=== PATIENT | female | born 1960 | race Caucasian/White ===

== ENCOUNTER 2018-06-13 07:00 | Day surgery (SDC) | payer MEDICAID, SELFPAY ==
[2018-06-13 07:27] VITALS: BP 138/93; PULSE 87; RESP 16; TEMP 37.1; O2SAT 98; BMI 16.9
--- NOTE | 2018-06-13 07:33 | H&P.OPEN ---
History of Present Illness Date of Admission: 06/13/18 The patient is a 58 year old F presents for screening colonoscopy. Patient previously had a colonoscopy in December 2016 she had a rectal tubular adenoma removed piecemeal recommended follow-up in 6 months to a year. Patient states she has had no new abdominal pain, nausea, vomiting, reflux. Patient was recently diagnosed with epilepsy. Patient still denies family history of colon cancer. Past Medical/Surgical History - Planned Operation Planned Operative Procedure/s: cscope open access Date of Operative Procedure: 06/13/18 Permit Signed: No S.O.S: No Is This Patient Having a Total Joint: No - Previous Hospitalizations/Surgeries HX Hospitalizations: No HX of Surgeries: colonoscopy Any Problems With Anesthesia: No You/Your Family Experience Fever (Hyperthermia) With Anes: No Cholinesterase deficiency: No - Cardiovascular Hx Chest Pain within Last 2 months: No Hx of Irregular Heartbeat and/or Afib: No Hx Heart Attack: No Hx Congestive Heart Failure: No Hx Rheumatic Fever: No Hx Hypertension: No Hx Internal Defibrillator: No Hx Pacemaker: No Hx Cardiac Catheterization: No Hx Cardiac Surgery/Stents/Etc.: No Hx Stress Test: No HX Edema: No Hx Pain in Legs when Walking/Leg Cramps: No - Respiratory Chronic Cough: No HX of Shortness of Breath: No Hoarseness: No Hx Chronic Obstructive Pulmonary Disease (COPD): No Hx Asthma: No Hx Emphysema: No Hx Sleep Apnea: No CPAP: No Hx Oxygen Use at Home: No Hx Respiratory Tract Infection/Cold (presently): No Do You Snore Loudly (louder than talking or can be heard): No Do You Often Feel Tired/ Fatigued/ Sleepy Dring Daytime?: No Has Anyone Observed You Stop Breathing During Sleep?: No Result (for STOP score): Negative Hx Smoking: Yes - quit 1995 Smoking Status: Former smoker - Gastrointestinal Hx Gastroesophageal Reflux: No Hx Gastrointestinal Disorders: Yes - IBS Hx Gastrointestinal Bleed: No Hx Ulcer: No Hx Hiatal Hernia: No Difficulty Chewing/Swallowing: No Recent Onset of Swallowing Problems: No Special diet followed at home: No Hx Unplanned Weight Loss of 20#: No HX Unplanned Weight Gain of 20#: No - Neurological Hx Seizures: Yes - first seizure 5 yrs ago/last seizure 06/01/18. on med HX Syncope/Blackout Spells/Unconsciousness: No Hx CVA/Stroke: No Hx Transient Ischemic Attacks (TIA): No Hx Multiple Sclerosis: No Hx Parkinson's Disease: No Hx Head/Neck Injury: No Hx Headaches: No Hx Back Injury/Pain: No Recent Onset of Speech Difficulty: No Restless Legs: Yes - . Does patient have nerve stimulator: No Patient instructed to have device shut off: No Rep notified?: No - Blood Disorder Hx Leukemia: No Bleeding Tendencies: No Hx Deep Vein Thrombosis: No Hx High Cholesterol: No Blood Transmitted Disease: No Hx Hepatitis: No Hx Cirrhosis: No Hx Anemia: Yes Hx Blood Disorders: No - Reproduction : No Is Patient Lactating: No Hx Hysterectomy: No Hx Tubal Ligation: No Are You Post Menopause: Yes - Genitourinary Hx Renal Disease: No - Musculoskeletal Hx Arthritis: No Hx Rheumatoid Arthritis: No Hx Gout: No Recent Onset of an Orthopedic Problem: No - Endocrine Hx Diabetes: No Thyroid Disease: No Hx Steroid Therapy: No - Psycho/Social Hx Substance Use: No Hx Alcohol Use: Yes - occ Hx Anxiety: Yes - OCC. Hx Depression: Yes - occ Mental Illness: No Hx Dementia: No - Miscellaneous Hx Cancer: No Recent Exposure to Contagious Disease: No Active MRSA: No Hx of C-Diff: No Any Loose Teeth: No Allergies erythromycin base Allergy (Verified 06/11/18 10:30) TONGUE PEELS - Discharge Is Pt Admitted From a Residential, or a Nursing Home: No Who Could Help: family After D/C, Where Do you Plan to Go: Return Home - Physical Exam General: Alert, Oriented x3, Cooperative, No apparent distress HEENT: Atraumatic Lungs: Normal air movement Cardiovascular: Regular rate Abdomen: Soft, Non Tender, Non-Distended Extremities: No clubbing, No cyanosis, No edema Neurological: Cranial nerves II-XII grossly intact Psych/Mental Status: Normal Affect Assessment/Plan 58-year-old female for history of colon polyps Surgery Risks - Colonoscopy I discussed with the patient the risks of the procedure: Yes Risks Include but are not Limited To: Risks include but are not limited to: Bleeding, perforation requiring further surgery, inability to complete colonoscopy requiring barium enema. Patient expressed understanding had no further questions this time.
[2018-06-13 08:30] VITALS: BP 118/85; BP 138/93; PULSE 84; RESP 18; TEMP 37.3; O2SAT 98
[2018-06-13 08:35] VITALS: BP 124/82; BP 138/93; PULSE 78; RESP 17; O2SAT 98
--- NOTE | 2018-06-13 08:35 | OP.ENDO_ITS ---
06/13/2018 [facility] Re : Colonoscopy procedure for Lakesha Barbosa [facility] This procedure was performed on Wednesday, June 13, 2018. My impressions and recommendations are as follows: Impressions : - The entire examined colon is normal on direct and retroflexion views. Previous rectal polyp site-normal. - No specimens collected. Recommendations : - Discharge patient to home. - Resume previous diet. - Continue present medications. - Repeat colonoscopy for screening purposes and for surveillance. My findings are described in the full procedure note, which is enclosed. If I can be of further assistance, please feel free to contact me at Doctor phone number(s): , Work: . Sincerely, MD Cecily Altamirano MD 06/13/2018 8:34:43 AM This report has been signed electronically.
[2018-06-13 08:40] VITALS: BP 124/81; BP 138/93; PULSE 78; RESP 17; O2SAT 99
[2018-06-13 08:45] VITALS: BP 123/77; BP 138/93; PULSE 76; RESP 17; TEMP 36.8; O2SAT 99
[2018-06-13 08:58] VITALS: BP 138/93
== END 2018-06-13 09:09 | disposition home or self-care (01) ==
LOC: EN 07:00 → AC 07:03
PROVIDERS: Referring Provider Surgery; Visit Provider Surgery
PROC: 0DJD8ZZ Inspection of Lower Intestinal Tract, Via Natural or Artificial Opening Endoscopic (ICD-10-PCS; CPT 45378; principal; 2018-06-13 07:55)
DX: Z12.11 Encounter for screening for malignant neoplasm of colon (principal); Z86.010 Personal history of colon polyps; G40.909 Epilepsy, unspecified, not intractable, without status epilepticus; Z87.891 Personal history of nicotine dependence
CPT/HCPCS: 45378; J7120; J2405

== ENCOUNTER → 2018-12-26 11:42 | Outpatient (CLI) | payer MEDICAID, SELFPAY ==
--- NOTE | 2018-12-26 11:44 | BI_ITS ---
MAMMOGRAPHY - BILATERAL SCREENING REASON FOR EXAM: Female, 58 years old. Routine annual screening examination. PERTINENT HISTORY: Grandmother with breast cancer. TECHNIQUE: Digital bilateral breast josé (3D mammographic acquisition) in the CC and MLO projections. 2-D mediolateral oblique (MLO) and craniocaudad (CC) views of both breasts were obtained. CAD: Full Field Digital Mammography with Computer Added Detection was performed. COMPARISON: Comparison is made with prior study dated October 26, 2016. FINDINGS: Breast Composition: The breasts are extremely dense, which lowers the sensitivity of mammography. There are no dominant masses or suspicious calcifications. Macrocalcifications are seen in the upper central aspect of the left breast. No other significant abnormalities are identified. There has been no significant change since the prior study. BI/SCREEN MAMM (CAD) W/JOSÉ BILAT IMPRESSION: Stable bilateral screening mammogram. Yearly follow-up mammogram recommended. (A) ASSESSMENT CATEGORY: BIRADS Category 2: Benign. A letter regarding these results will be sent to the patient by the facility within 30 days. Approximately 10% of breast cancers are not detected by mammography. A normal mammogram should not delay biopsy of a clinically suspicious abnormality. [id number] Electronically Signed: Nael Thomas, at 12:55 EDT , Service support ,
== END ==
DX: Z12.31 Encounter for screening mammogram for malignant neoplasm of breast (principal)
CPT/HCPCS: 77063; 77067

== ENCOUNTER 2019-10-10 11:21 | Emergency (ER) | payer MEDICAID, SELFPAY ==
[2019-10-10 11:22] VITALS: BP 105/74; PULSE 105; RESP 18; TEMP 36.6; O2SAT 98; BMI 17.1
--- NOTE | 2019-10-10 11:34 | RAD_ITS ---
STUDY: X-RAY - LEFT SHOULDER REASON FOR EXAM: Female, 59 years old. PT FELL LAST NIGHT, DEFORMITY TECHNIQUE: 3 view(s) of the shoulder. COMPARISON: None. FINDINGS: Normal glenohumeral articulation. Normal acromioclavicular joint. Normal acromion. There is a comminuted impacted fracture of the surgical neck of the humerus with extension to the greater tuberosity. Soft tissue swelling. Normal visualized pulmonary apex. RAD/Shoulder min 2 Views IMPRESSION: Comminuted impacted fracture involving the surgical neck of the humerus with extension to the greater tuberosity. Electronically Signed: Nael Thomas, at 12:20 EDT , Service support ,
[2019-10-10] MEDS: Ondansetron ODT 4 MG Tablet PO (11:58)
[2019-10-10] MEDS: fentaNYL 100 MCG/2 ML Ampul 50 MCG IM (11:58)
--- NOTE | 2019-10-10 12:15 | ED.VISSUMM ---
- ER Visit Summary Date of Service: 10/10/19 Chief Complaint: Fall History of Present Illness: The patient is a 59 F who goes to the [facility]. Reports that last night she tripped over her dog injuring her left shoulder. She has pain is 10 of 10 severity. Is worsened by movement relieved by rest. She denies any paresthesias distally. Patient denies any other injuries. No blow to the head or loss of consciousness. She not on anticoagulants. She denies any neck, back, wrist, or hip pain. Review of systems: General: No fever, chills, cold sweats. Cardiovascular: No chest pain, palpitations. Respiratory: No cough, shortness of breath, dyspnea on exertion. Gastrointestinal: No abdominal pain, nausea, vomiting, diarrhea, melena, or hematochezia. Genitourinary: No dysuria, frequency, hematuria. Skin: No rash. Neuro: No headache, numbness, weakness. Physical Examination: Vitals: Stable. Afebrile. Neck: No vertebral tenderness. Full ROM without difficulty. Cleared by NEXUS criteria. Back: No vertebral tenderness. General: A&O x 3. NAD. Cardiovascular exam: Regular rate and rhythm, no murmur, rub or gallop. Respiratory exam: Chest nontender. No crepitus. Clear to auscultation bilaterally. No wheezes or stridor. Abdominal exam: Soft, nontender, nondistended, normal bowel sounds. No pain in RUQ or LUQ specifically. No peritoneal signs. Extremity: Obvious deformity of the proximal humerus on the left. It is severely tender to palpation. She is neuro vas intact distal this Test Results: Left shoulder x-ray shows a proximal humerus fracture. Emergency Department Course and Treatment: Patient was given fentanyl IM and placed in a sling. She was given Zofran and oxycodone p.o. Treatment Plan: Patient be discharged with Percocet, Zofran, and Colace. Instructed to follow-up with Dr. Mitchell in a week for another exam. Return to the emergency department for any worsening symptoms. Disposition: To home in improved and stable condition. Impression: 1. Fall. 2. Left proximal humerus fracture. This note was generated with [employer] dictation software. It may contain incorrect words, spelling, and punctuation that were not noted in review of the chart prior to signing ED Disposition - Plan for ED Patient: Instructions: ED Fracture Upper Extremity Prescriptions: Docusate Sodium [Colace] 100 mg PO DAILY #20 capsule Oxycodone HCl/Acetaminophen [Percocet 5/325] 1 tablet PO Q6H PRN PRN 5 Days #20 tablet PRN Reason: Pain Score 6-10/10 Ondansetron [Zofran Odt] 4 mg PO Q8H PRN PRN #10 tablet PRN Reason: Nausea Referrals: Tyler Mitchell MD [STAFF PHYSICIAN] - 1 Week
[2019-10-10] MEDS: oxyCODONE 5 MG Tablet 10 MG PO (12:36)
[2019-10-10 12:46] VITALS: BP 156/76; PULSE 91; RESP 19; O2SAT 97
== END 2019-10-10 12:48 | disposition home or self-care (01) ==
LOC: ED 12:29
PROVIDERS: Emergency Provider Emergency Medicine
DX: S42.202A Unspecified fracture of upper end of left humerus, initial encounter for closed fracture (principal); W01.0XXA Fall on same level from slipping, tripping and stumbling without subsequent striking against object, initial encounter; Y93.9 Activity, unspecified; Y92.9 Unspecified place or not applicable; Y99.9 Unspecified external cause status
CPT/HCPCS: 73030; 96372; 99283

== ENCOUNTER → 2019-11-01 11:46 | Outpatient (CLI) | payer MEDICAID, SELFPAY ==
[2019-10-10 11:22] VITALS: BMI 17.1
== END ==
DX: E87.6 Hypokalemia (principal)

== ENCOUNTER 2019-11-06 07:26 | Inpatient (IN) | payer MEDICAID, SELFPAY ==
--- NOTE | 2019-10-22 14:47 | PCM.HP.BLA ---
History and Physical History and Physical Patient Name: Lakesha Saravia : 1960 From: AMANDA NEGRETE NP DATE OF SURGERY: 10/30/2019 SCHEDULED PROCEDURE: Left reverse total shoulder arthroplasty HISTORY OF PRESENT ILLNESS: Preoperative history and physical exam was performed on October 14, 2019. This is a 59-year-old female who tripped over her dog and fell onto the left shoulder on October 10, 2019. Her pain is 10 on a scale of 10. She denies numbness and tingling. The patient is currently immobilized in a sling and swath. The patient lives independently and is employed. She is unable to work due to the left shoulder injury/fracture. The patient has a medical history pertinent for anxiety, depression and seizure disorder. We will be obtaining surgical clearance from Naomi Maya NP. She denies fevers, chills, shortness of breath, difficulty breathing or recent infections. After discussing treatment options with Dr. Tyler Mitchell the patient does wish to proceed with a left reverse total shoulder arthroplasty. REVIEW OF SYSTEMS: ROS: Const: Denies change in appetite, fever and weight change. CV: Denies chest pain, heart murmur and irregular heartbeat. Resp: Denies cough, pneumonia, shortness of breath, tuberculosis and wheezing. GI: Denies constipation, diarrhea, heartburn, nausea, rectal itching, bloody stools and vomiting. : Denies incontinence. Musculo: Denies leg swelling, pain, trouble walking and weakness. Skin: Denies Raynaud's, history of shingles and tattoo. Neuro: Denies ambulatory dysfunction, dizziness, numbness/tingling and tremor. Psych: Reports anxiety, but denies insomnia and stress. Lito/Lymph: Denies anemia, bleeding/bruising tendency and past transfusion. Reviewed, no changes. PAST MEDICAL HISTORY: Advance Care Plan: No Advance Directives Effective Date: 10/15/2019 PMH: Medical Problems: Depression, Seizure Disorder, anxiety Accidents: Fracture - (10/14/2019) LT Humerus Surgical Hx: None Anesthesia Complications: None Assistive Devices: Glasses Reviewed and updated. SOCIAL HISTORY: SH: Marital: Single.Occupation: Not Currently Working - (05/2019) [employer].MRKT.Work Status: Not Working Currently - [employer].Hand Dominance: Right-handed. Personal Habits: Cigarette Use: Former.Smokeless Tobacco: Never Used Smokeless Tobacco.E-Cigarette Use: Never used.Alcohol: Daily.Drug Use: Denies Use.Enjoy Exercising: Never Exercises. Reviewed, no changes. VITALS: Ht: 62.5 Wt: 96lb Wt k.546 BMI: 17.3 BP: 100/60 Pulse: 66 Resp: 16 T: 97.6 T: 36.4C ALLERGIES: Erythromycin MEDICATIONS: Oxycodone HCL 5 mg 1-2 tab by mouth every 6 hours, Oxcarbazepine 150 mg 300mg AM - 600MG PM, Ibuprofen 200 200 mg 1po bid, Buspirone HCL 7.5 mg take 1 tablet daily as needed for anxiety, Vitamin C 500 mg take 1 tablet by mouth daily, Fluoxetine HCL 20 mg take 1 capsule by mouth every day, Potassium Chloride ER 20 Meq take 1 tablet by mouth twice daily, Clonazepam 0.25 mg TAKE 1 TABLET BY MOUTH NEEDED for cluster of siezures, max 2 per day, Tylenol Extra Strength 500 mg 2 by mouth every 8 hours PRE-OP EXAM: General appearance:NORMAL Other: Eyes: Conjunctivae and lids: NORMAL Pupils: ERR Ears, Nose, Mouth, and Throat: NORMAL Other: Inspection of lips, teeth and gums: NORMAL Other: Respiratory: Assessment of respiratory effort: NORMAL Other: Auscultation of lungs: clear to auscultation no wheezes, rhonchi or rales. Cardiovascular: Auscultation of heart: regular rate and rhythm, no murmurs, gallops or rubs. Gastrointestinal: Exam of abdomen: soft, nontender, nondistended bowel sounds present. Neurological: see below Psychiatric: Orientation to time, place and person: NORMAL Other: Mood and affect: NORMAL Other: PHYSICAL EXAMINATION: Left shoulder with diffuse ecchymosis and swelling over the anterior lateral and posterior aspect of the shoulder. Ecchymosis extending down to the axillary region and midshaft of the left humerus. Palpable defect of the proximal humerus. Patient was able to flex and extend the left elbow, wrist and hand. 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 Sensation intact to axillary, median, radial and ulnar nerve distributions. Intact AIN, PIN and ulnar nerves. Capillary refill less than 3 seconds. Radial pulse palpable. IMAGING STUDIES: X-rays of the left shoulder taken at [facility] on October 10, 2019 reveal a comminuted impacted fracture of the surgical neck of the left humerus extending to the greater tuberosity. X-rays obtained on October 15, 2019 reveals a comminuted displaced impacted surgical neck fracture of the humerus extending into the greater tuberosity. IMPRESSION: 1. Three-part fracture of the surgical neck, left humerus 2. Anxiety 3. Depression 4. Seizure disorder PLAN: Dr. Tyler Mitchell did discuss and review with the patient all treatment options including surgical versus nonsurgical. The patient does wish to proceed with the above-stated procedure. Potential risk, benefits and complications of the procedure were discussed in detail including but not limited to , infection, nerve and blood vessel damage, persistent pain, numbness, tingling, paresthesia, blood clot, pulmonary embolism and requirement for possible further surgery. The patient expressed full understanding and has no further questions for the doctor. The patient does agree to proceed with the above-stated procedure and has signed the surgery consent form. Discussed with the patient the risks associated with the COVID-19 virus including the risk of exposure while at the hospital. The patient was reassured local hospitals have low infection rates and taken all necessary precautions to limit patient exposure to COVID-19. Limiting the patient's time in the hospital may decrease their exposure to COVID-19. The patient was notified that we will need to comply with any screening or testing the hospital wishes to perform and that surgery may be delayed for any positive test results. This dictation was created using voice recognition software. Phonetic and/or grammatical errors may exist. ___ I have re-examined the patient. There are no clinical changes since date of exam. ___ See progress notes for changes. ___ Dictated on admission Date: Time: Signature:
--- NOTE | 2019-10-24 14:15 | EKG12_ITS ---
Test Reason : PRE OP Blood Pressure : / mmHG Vent. Rate : 056 BPM Atrial Rate : 056 BPM P-R Int : 100 ms QRS Dur : 074 ms QT Int : 484 ms P-R-T Axes : 031 053 089 degrees QTc Int : 467 ms Sinus bradycardia with short PA Nonspecific T wave abnormality Abnormal ECG Confirmed by QUENTIN ANDRES, JOSHUA ([id number]), electronic news gathering editor SHAWN MARTÍNEZ ([id number]) on 10/28/2019 2:04:56 PM Referred By: Tyler Mitchell Confirmed By:CASEY SAAVEDRA MD
[2019-10-24 14:30] LABS: Absolute Lymphocyte Count 0.96 X10^3/uL (0.83-4.51); Absolute Neutrophil Count 5.7 X10^3/uL (2.0-7.7); Basophil# 0.06 X10^3/uL; Basophil% 0.8 % (0-1); Eosinophil# 0.11 X10^3/uL; Eosinophils% 1.5 % (0-5); Hematocrit 34.2 % (37-47); Hemoglobin 11.5 g/dL (12.0-15.0); Lymphocyte # 0.96 X10^3/ul (4.0); Lymphocyte % 12.8 % (19-41); Mean Corp Hgb Conc 33.6 g/dL (32-36); Mean Corpuscular Hgb 38.1 pg (27.0-32.0); Mean Corpuscular Volume 113.2 fL (81-99); Mean Platelet Vol. 9.1 fl (6.2-12.0); Monocyte# 0.61 X10^3/uL; Monocyte% 8.2 % (0-10); NRBC Flagged by Analyzer 0 % (0-5); Neutrophil # 5.71 X10^3/uL (2.7-7.7); Neutrophil % 76.3 % (47-70); Platelet Count 363 K/mm3 (150-450); RBC Distribution Width SD 53.1 fl (35.1-43.9); Red Blood Count 3.02 M/mm3 (4.2-5.4); White Blood Count 7.5 K/mm3 (4.4-11.0)
[2019-10-24 15:16] LABS: Anion Gap 2 (5-15); BUN 9 mg/dL (7-18); Calcium,Total 7.9 mg/dL (8.5-10.1); Chloride 99 mmol/L (98-107); Creatinine, Serum 0.53 mg/dL (0.55-1.02); EST Glomerular Filtration Rate 125 mL/min (>60); Est Glom Filt Rate - Afr Amer 151 mL/min (>60); Glucose 86 mg/dL (74-106); Potassium 2.4 mmol/L (3.5-5.1); Sodium Level 136 mmol/L (136-145)
[2019-10-25 15:45] LABS: Magnesium 1.5 mg/dL (1.6-2.6)
[2019-11-01 12:38] LABS: Absolute Lymphocyte Count 1.43 X10^3/uL (0.83-4.51); Basophil# 0.09 X10^3/uL; Basophil% 0.9 % (0-1); Eosinophil# 0.18 X10^3/uL; Eosinophils% 1.7 % (0-5); Hematocrit 39.5 % (37-47); Hemoglobin 12.9 g/dL (12.0-15.0); Lymphocyte # 1.43 X10^3/ul (4.0); Lymphocyte % 13.8 % (19-41); Mean Corp Hgb Conc 32.7 g/dL (32-36); Mean Corpuscular Hgb 38.2 pg (27.0-32.0); Mean Corpuscular Volume 116.9 fL (81-99); Mean Platelet Vol. 9.4 fl (6.2-12.0); Monocyte# 0.64 X10^3/uL; Monocyte% 6.2 % (0-10); NRBC Flagged by Analyzer 0 % (0-5); Neutrophil # 8.01 X10^3/uL (2.7-7.7); Neutrophil % 77.1 % (47-70); Platelet Count 523 K/mm3 (150-450); RBC Distribution Width CV 12.5 % (11.6-14.6); RBC Distribution Width SD 54.4 fl (35.1-43.9); Red Blood Count 3.38 M/mm3 (4.2-5.4); White Blood Count 10.4 K/mm3 (4.4-11.0)
[2019-11-01 12:48] LABS: International Normalized Ratio 1.1; Prothrombin Time (Protime)PT. 13.7 SECONDS (11.7-14.9)
[2019-11-01 12:49] LABS: Partial Thromboplast Time 27.2 Seconds (24.1-36.2)
[2019-11-01 12:56] LABS: Potassium 3.8 mmol/L (3.5-5.1)
[2019-11-01 13:14] LABS: ALB/GLOB Ratio 0.9 RATIO (0.9-2.4); AST(SGOT) 54 U/L (15-37); Alanine Aminotransfer ALT/SGPT 20 U/L (13-56); Albumin, Serum 2.9 g/dL (3.2-5.0); Alkaline Phosphatase 120 U/L (45-117); Anion Gap 7 (5-15); BUN 4 mg/dL (7-18); BUN/Creat Ratio 7.5 RATIO (10-20); Calcium,Total 8.2 mg/dL (8.5-10.1); Chloride 105 mmol/L (98-107); Creatinine, Serum 0.53 mg/dL (0.55-1.02); EST Glomerular Filtration Rate 125 mL/min (>60); Est Glom Filt Rate - Afr Amer 151 mL/min (>60); Globulin 3.4 g/dL (2.2-4.2); Glucose 112 mg/dL (74-106); Magnesium 1.4 mg/dL (1.6-2.6); Potassium 3.8 mmol/L (3.5-5.1); Protein, Total 6.3 g/dL (6.4-8.2); Sodium Level 138 mmol/L (136-145)
[2019-11-05 11:19] LABS: ALB/GLOB Ratio 0.8 RATIO (0.9-2.4); AST(SGOT) 44 U/L (15-37); Alanine Aminotransfer ALT/SGPT 22 U/L (13-56); Albumin, Serum 2.9 g/dL (3.2-5.0); Alkaline Phosphatase 124 U/L (45-117); Anion Gap 8 (5-15); BUN 14 mg/dL (7-18); BUN/Creat Ratio 29.2 RATIO (10-20); Chloride 100 mmol/L (98-107); Creatinine, Serum 0.48 mg/dL (0.55-1.02); EST Glomerular Filtration Rate 140 mL/min (>60); Est Glom Filt Rate - Afr Amer 170 mL/min (>60); Globulin 3.6 g/dL (2.2-4.2); Glucose 80 mg/dL (74-106); Magnesium 1.5 mg/dL (1.6-2.6); Potassium 3.9 mmol/L (3.5-5.1); Protein, Total 6.5 g/dL (6.4-8.2); Sodium Level 136 mmol/L (136-145)
[2019-11-06] VITALS (11 sets, daily range): BP systolic 85–100; BP diastolic 50–63; PULSE 65–89; RESP 16; TEMP 36.3–37; O2SAT 95–100; BMI 16.0
[2019-11-06 10:31] LABS: Bedside Glucose 97 mg/dL (70-110)
[2019-11-06] MEDS: Acetaminophen 500 MG Tablet 1000 MG PO ×2 (10:39→22:05)
[2019-11-06] MEDS: Lactated Ringers 1,000 ML 125 ML IV ×3 (10:39→15:36)
[2019-11-06] MEDS: Celecoxib 200 MG Capsule 400 MG PO (10:40)
[2019-11-06] MEDS: Gabapentin 600 MG Tablet PO (10:40)
[2019-11-06] MEDS: Lactated Ringers 1,000 ML 999 ML IV (12:00)
[2019-11-06] MEDS: Cefazolin 2 GM in 0.9% Normal Saline 100 ML IV (12:21)
[2019-11-06] MEDS: dexAMETHasone 10 MG/ML Vial IV (13:00)
--- NOTE | 2019-11-06 14:21 | PCM.OPRPT ---
Report of Operation Date of Procedure: 11/06/19 Pre-Operative Diagnosis: Left shoulder comminuted two-part proximal humerus fracture Post-Operative Diagnosis: Left shoulder comminuted two-part proximal humerus fracture Surgery/Procedure Performed:: Left reverse total shoulder replacement Description of Surgical Findings:: Stable shoulder press writer: Rodri Gonzalez Type of Anesthesia:: General Anesthesiologist: Adam Nuñez Special Medications: 2 g Ancef, 1 g TXA at incision, 1 g TXA closure, 10 mg Decadron, joint cocktail (5 mg Duramorph, 30 mL of 0.5% Ropivicaine, 1000 units of epinephrine, 30 mg of Toradol), vancomycin Specimen's removed: humeral head fracture Estimated Blood Loss (mL): 200 Fluids Replaced: 1400 mL crystalloid Description of Procedure: Components used 1. Germán reunion glenoid baseplate 2. Germán reunion 32 mm, 2mm Glenosphere 3. Germán reunion 32mm, 4mm humeral liner 4. Germán reunion reverse TSA humeral adapter tray 4mm 5. Germán reunion humeral stem 6 mm fracture stem Brief history/Operative indications: 59 yo f with history of left shoulder proximal humerus fracture with significant displacement and comminution patient failed conservative measures as mentioned in the H&P. After discussion of risk and benefits of reverse total shoulder replacement including but not limited to blood loss, DVTs, PEs, nerve vessel damage, infection, general risk of anesthesia including loss of life, instability and stiffness patient demonstrating understanding wish to proceed was able to sign informed consent. Medical clearance was obtained. Procedure: On the date of the procedure, patient's L upper extremity was marked in the preoperative area. Patient was taken back to the operating room where they were placed on the table in the supine position. Anesthesia assumed control of the C-spine and airway, then administered anesthetic. All bony prominences were identified well-padded, the head was secured and the patient was placed in the beachchair position at about 35? inclination. Anesthesia remained in control of the C-spine airway throughout the remainder of the procedure. Patient was then appropriately fastened to the table and the L upper extremity was prepped in a sterile fashion. The surgeons then scrubbed. Upon reentering the room, the L upper extremity was draped in a sterile fashion and the incision was marked out. Timeout was called, everyone agreed upon the side, the site, the procedure to be performed, patient identity and antibiotics given. Incision was taken down through skin and subcutaneous tissue, fat down to fascia. The stripe of the deltopectoral interval and cephalic vein were identified and blunt dissection was used to retract the deltoid. The cephalic vein was retracted laterally. Clavipectoral fascia was then incised and a cobell retractor was placed in the wound. The proximal one third of the pectoralis major insertion was released. At this time we carefully identified the fracture fragments. We made a lesser tuberosity fragment using an osteotome to create an osteotomy. We are able to identify the humeral head. From here we used an osteotome to create a greater tuberosity fragment. Both fragments were tagged with #2 FiberWire. This allowed us to get into the joint and remove the fractured humeral head. At this point the humerus was retracted out of the way and the glenoid was exposed. After exposing the glenoid, the labrum and the remaining proximal biceps were debrided. At this time we are able to view the entire outer edge of the glenoid. A central pin was placed we sequentially reamed over this central pin to 32mm. Once this was completed the central screw was measured and found to be. The glenoid baseplate was screwed into place. Wound was closely irrigated out with normal saline we then drilled sequentially for 2 screws. Screws were placed superiorly and inferiorly and tightened down the screws. Once the screws were appropriately tightened into place the glenoid baseplate was compressed against the exposed subchondral bone. A 32 mm +6 mm glenosphere was impacted into place engaging the Mccallum taper. Attention was then turned towards the humerus. The humerus was again externally rotated exposing the proximal portion of the humerus. Central canal finder was then used to open up the canal. We reamed to a 10mm reamer. We then broached to a 8mm stem. We trialed the 4mm liner, with the 4mm humeral baseplate. We obtained an adequate reduction at this time with a nice stable shoulder. Good internal rotation to the gluteus, forward elevation to 140?, external rotation to 20?. Final components were then assembled on the back table, trials were removed and the wound was copiously irrigated with normal saline after dislocating the shoulder. Due to the difference in shape of the fracture stem we were unable to trialed the 7 fracture stem as it was too thick for the canal distally. Knowingly needed to downsize we downsized 1 to the 7 mm fracture stem. This was impacted into place and a good fit was obtained. However I did not sit at the depth of the 8 mm trial. We attempted a trial but the shoulder was too tight. We then removed the 7 mm stem and downsized to a 6 mm stem. This was impacted into place. Prior to impacting and broaching we had placed a cable for prophylaxis from fractures. Again the 6 mm did not sit at the depth of the 8 mm trial. We attempted to reduce the shoulder but it was too tight for the soft tissues. At this time we left the [address] and we direct our attention back to the glenoid. Glenoid was exposed. Mccallum taper was disengaged from the +6 glenosphere and a 32+2 mm glenosphere was trialed. This gave us an adequate fit with good range of motion. A 32+2 mm glenoid and 4 mm baseplate and 4 mm poly-were open. Humeral head was assembled on the back table while we impacted the glenosphere and engage the Mccallum taper. Mccallum taper was checked. Once the final humeral head was assembled they were impacted into place. Shoulder was then reduced and found to be stable with good range of motion. Wound was lavaged with a 3-minute Betadine solution after that the wound was with chlorhexidine solution then copiously irrigated out with a 1 L normal saline lavage. The tuberosities were closed using #5 and #2 FiberWire in a fracture repair suture configuration. The deltopectoral fascia was then closed using #1 Vicryl skin was closed using 2-0 Vicryl interrupted sutures and final skin closure was done with 3-0 Monocryl. Steri-Strips are placed for final skin closure. Sterile dressing was placed patient was then placed in a sling and awakened by anesthesia. Patient was then transferred to the PACU for recovery. Postoperative plan: Patient will be admitted to the hospital overnight. They will get physical therapy starting in 2 weeks with normal postoperative regimen. Patient will be placed on aspirin daily for DVT prophylaxis. The first postoperative appointment will be in 2 weeks for wound check and initiation of phase 1 physical therapy. During the course of the procedure the physician nurse practitioner physicians assistant played a vital role. His intimate knowledge of my steps in the procedure aided in safe and expedient completion of the procedure. The PA played a vital rolls in positioning particularly in obtaining the appropriate beach chair position and securing the patient's body and head to the table. The PA was also vital in the retraction of soft tissues during the exposure and especially the glenoid work as this is a vital part of the procedure to prevent neurovascular damage. the PA was also vital and protecting soft tissues during times of bony cuts and reaming. He also played a vital role in closure with my direct supervision. The PA was also important during reduction and dislocation of the joint and trials intraoperatively. - Complications No intraoperative complications - Admit VTE Documentation VTE Present on Admission: No VTE Mechan Device Prophylaxis: SCD's, Knee High PALOMO Hose VTE Pharm Prophylaxis ordered?: Yes
--- NOTE | 2019-11-06 15:00 | RAD_ITS ---
STUDY: X-RAY - LEFT SHOULDER REASON FOR EXAM: Female, 59 years old. Post op left shoulder TECHNIQUE: 2 view(s) of the shoulder. COMPARISON: Comparison is made with prior study dated 10/10/2019. FINDINGS: The patient is status post left reverse shoulder replacement. There is good alignment. Postoperative soft tissue changes. RAD/Shoulder min 2 Views IMPRESSION: Status post left reverse shoulder replacement. There is good alignment. Postoperative soft tissue changes. Electronically Signed: Nael Thomas, at 15:21 EDT , Service support ,
--- NOTE | 2019-11-06 17:13 | PCM.CONS.GEN ---
Problem List (1) Status post total shoulder replacement Status: Acute (2) Seizure disorder Status: Chronic (3) Anxiety Status: Chronic (4) Depression Status: Chronic Reason for Consult Date of Consultation: 11/06/19 Reason for Consultation: Postoperative medical management. History of Present Illness: The patient is a 59 year old F with past medical history as mentioned above underwent left reverse total shoulder replacement today and I am seeing this patient in consultation for postoperative medical management. Today, patient underwent left reverse total shoulder replacement for comminuted proximal humerus fracture. At this time, she complained of mild left shoulder pain, dull aching pain, 2 out of 10 in severity and it is manageable. No aggravating or relieving factors. She denied chest pain or shortness of breath. She denied being dizzy or lightheaded. She denied abdominal pain, nausea or vomiting. She will history of seizure disorder and she has been on Trileptal since May,. She has history of anxiety and depression she has been on BuSpar and clonazepam. She is afebrile, heart rate stable, blood pressure is borderline but at baseline blood pressure is low. She is on oxygen by mask as a routine of postoperative policy but she denied any shortness of breath. Preoperative routine blood work that was done on November 01, 2019 reviewed, was unremarkable. Her magnesium was slightly low and she has been on magnesium supplement. Preoperative EKG reviewed and revealed sinus bradycardia, no acute changes. Past Medical History Past Medical History (Chronic Problems): Chronic Problems Seizure disorder (Chronic) Anxiety (Chronic) Depression (Chronic) Allergies erythromycin base Allergy (Verified 11/06/19 10:18) TONGUE PEELS Home Medications: Ambulatory Orders Medication Instructions Recorded Magnesium Oxide [Magnesium] 500 mg PO DAILY 06/11/18 Buspirone HCl 7.5 mg PO PRN PRN 10/10/19 Clonazepam 0.25 mg PO PRN PRN 10/10/19 Ondansetron [Zofran Odt] 4 mg PO Q8H PRN PRN #10 tab 10/10/19 Oxcarbazepine 150 mg PO DAILY 10/10/19 Acetaminophen [Tylenol Extra 500 - 1,000 mg PO Q6H PRN PRN 10/25/19 Strength] Docusate Sodium [Colace] 100 mg PO DAILY 10/25/19 Oxcarbazepine [Trileptal] 2 tab PO QHS 10/25/19 Oxycodone [Oxyir] 1 - 2 tab PO Q6H PRN PRN 10/25/19 Potassium Chloride [Klor-Con 10] 2 tab PO DAILY 10/25/19 Potassium Chloride [Klor-Con M20] 20 meq PO BID 10/25/19 Surgical History: - - No previous surgeries apart from today's surgery. Psychiatric History: Anxiety, Depression Lives: Alone Smoking Status: Former smoker Alcohol: Occasional Drugs: None - *Family History Maternal History Items: No pertinent history Paternal History Items: No pertinent history Review of Systems Constitutional: Denies: Anorexia, Chills, Fever, Weakness Eyes: Denies: Blurred vision, Double vision, Drainage, Redness HEENT: Denies: Difficulty Hearing, Ear Pain, Eye Pain, Nasal Congestion, Sore Throat Cardiovascular: Denies: Chest Pain, Chest Pressure, Edema, Heaviness, Palpitations, Syncope Respiratory: Denies: Cough, Pleuritic Pain, Shortness of Breath, Sputum production, Wheezing Gastrointestinal: Denies: Abdominal Pain, Constipation, Diarrhea, Nausea, Vomiting Genitourinary: Denies: Dysuria, Frequency, Hematuria Musculoskeletal: Reports: Shoulder Pain. Denies: Arm Pain, Back Pain, Foot Pain Skin: Denies: Dryness, Rash Neurological: Denies: Balance problems, Blurred vision, Double vision, Change in Speech, Slurred speech, Confusion, Headaches, Incoordination, Numbness Psychiatric: Reports: Anxiety, Depression Endocrine: Denies: Change in Body Habitus, Polydipsia, Polyuria Patient Problems: Active and Suspected Problems Status post total shoulder replacement (Acute) - Physical Exam Vitals/I&O's: Vital Signs Temp Pulse Resp BP Pulse Ox 97.9 F 79 16 85/50 L 99 11/06/19 16:25 11/06/19 16:25 11/06/19 16:25 11/06/19 16:25 11/06/19 16:25 Oxygen Flow Rate (L/min) 6 Oxygen Delivery Method Simple Mask Weight: 93 lb 7.616 oz Body Mass Index (BMI) 16.0 Intake and Output for Last 24 Hours 11/04/19 11/05/19 11/06/19 23:59 23:59 23:59 Intake Total 3697.5 / 3697.5 Balance 3697.5 / 3697.5 General: Alert, Oriented x3, Cooperative, No apparent distress HEENT: Atraumatic, PERRLA, EOMI, Normocephalic Oral: Moist Mucosa, No Gingival or Mucosal Lesions/ Ulcerations Neck: Supple, No JVD, Negative Carotid Bruits, Trachea Midline, Thyroid Normal Size and Texture Lungs: Clear to auscultation, Normal air movement, No rhonchi, No wheeze, No rales, Diminished Cardiovascular: Regular rate, Regular Rhythm, Normal S1, Normal S2, PMI Normal Abdomen: Bowel Sounds Present, Soft, Non Tender, Non-Distended, No Hepato-splenomegaly Extremities: No clubbing, No cyanosis, No edema Skin: No rashes, No breakdown Lymphatic: No Cervical, Supraclavicular, or Inguinal Adenopathy Neurological: Cranial nerves II-XII grossly intact, Motor Exam 5/5 strength throughout Psych/Mental Status: Normal Affect, Appropriate, Alert and oriented to time, place, person, mood and affect Laboratory Results 11/06/19 10:28: POC Glucose 97 Current Medications Acetaminophen (Tylenol) 1,000 mg PO Q8 [facility] Aspirin (Aspirin) 325 mg PO DAILY@0800 [facility] Last Admin: 11/06/19 16:31 Dose: Not Given Documented by: Enteral Nutritional Formula (Ensure Surgery) 237 ml PO TIDCM [facility] Last Admin: 11/06/19 16:31 Dose: Not Given Documented by: Famotidine (Pepcid) 20 mg PO DAILY [facility] Last Admin: 11/06/19 16:31 Dose: Not Given Documented by: Lactated Ringer's () 1,000 mls @ 125 mls/hr IV .Q8H [facility] Last Infusion: 11/06/19 14:55 Dose: Infused Documented by: Lactated Ringer's () 1,000 mls @ 125 mls/hr IV .Q8H [facility] Last Admin: 11/06/19 15:36 Dose: 125 mls/hr Documented by: Cefazolin Sodium () 1 gm in 50 mls @ 150 mls/hr IV Q8H [facility] Stop: 11/07/19 04:49 Sodium Chloride () 250 mls @ 15 mls/hr IV .[id number] PRN PRN Reason: Saline Flush Sodium Chloride () 250 mls @ 15 mls/hr IV .[id number] PRN PRN Reason: Additional IVPB Infusion Insulin Human Lispro (Humalog Kwikpen ([facility])) 1 - 6 unit SC Q4H PRN PRN; Protocol PRN Reason: BG>/= 180, SEE PROTOCOL Ketorolac Tromethamine (Toradol ([facility])) 15 mg IV Q6H PRN PRN PRN Reason: Pain Score 1-5/10 Stop: 11/08/19 07:27 Meloxicam (Mobic) 7.5 mg PO BID [facility] Morphine Sulfate () 2 - 4 mg IV Q2H PRN PRN PRN Reason: Pain Score 6-10/10 Non-Formulary Medication (Buspirone Hcl) 7.5 mg PO PRN PRN PRN Reason: ANXIETY Non-Formulary Medication (Clonazepam) 0.25 mg PO PRN PRN PRN Reason: SEIZURES Non-Formulary Medication (Magnesium Oxide [Magnesium]) 500 mg PO DAILY ART Non-Formulary Medication (Potassium Chloride [Klor-Con M20]) 20 meq PO BID [facility] Ondansetron HCl (Zofran) 4 mg IV Q8H PRN PRN PRN Reason: NAUSEA Oxcarbazepine (Trileptal) 150 mg PO DAILY ART Oxcarbazepine (Trileptal) mg PO QHS ART Oxycodone HCl (Oxyir) 5 - 10 mg PO Q4H PRN PRN PRN Reason: Pain Score 4-10/10 Promethazine HCl (Phenergan) 12.5 mg IM Q6H PRN PRN; Protocol PRN Reason: NAUSEA/VOMITING Senna/Docusate Sodium (Senokot-S, Myah-Colace) 2 tablet PO BID [facility] Sodium Chloride () 10 - 40 ml IV UD PRN PRN Reason: SALINE FLUSH Assessment/Plan All Active Problems Status post total shoulder replacement (Acute) This is a 59 years old female patient admitted for elective total left reverse shoulder replacement and I am seeing this patient in consultation for postoperative medical management. #1 status post total left reverse shoulder replacement: This was done for comminuted left proximal humerus fracture, postoperative day 0. Preoperative routine blood work and EKG reviewed as above. Patient currently is on IV cefazolin for perioperative prophylaxis. She is on IV morphine and OxyIR pain for pain. Her vital signs are stable, blood pressure is borderline but her blood pressure usually runs low. Orthopedic surgery are on the case. Repeat CBC and BMP ordered for tomorrow. #2 recent hypokalemia/hypomagnesemia: Patient was on potassium and magnesium supplement as outpatient. Potassium was normal on preoperative routine blood work. Plan to repeat BMP and serum magnesium tomorrow morning. #3 seizure disorder: Stable, continue Trileptal. #4 anxiety/depression: Stable, continue Buspirone and clonazepam. #5 DVT prophylaxis: SCDs. This note was generated with [employer] dictation software. It may contain incorrect words, spelling, and punctuation that were not noted in checking the note before signing. Inpatient E&M: 12018 Init Hosp L2
[2019-11-06] MEDS: Cefazolin 1 GM/50 ML BAG IV (21:39)
[2019-11-06] MEDS: OXcarbazepine 150 MG Tablet 300 MG PO (22:07)
[2019-11-06] MEDS: Ketorolac 15 MG/ML Vial IV (23:09)
[2019-11-07 01:03] VITALS: BP 101/66; PULSE 67; RESP 16; TEMP 36.4; O2SAT 100
[2019-11-07] MEDS: oxyCODONE 5 MG Tablet PO ×2 (01:18→11:46)
[2019-11-07] MEDS: Lactated Ringers 1,000 ML 125 ML IV (01:19)
[2019-11-07] MEDS: Cefazolin 1 GM/50 ML BAG IV (04:40)
[2019-11-07] MEDS: Acetaminophen 500 MG Tablet 1000 MG PO (05:38)
[2019-11-07 05:45] VITALS: BP 89/55; PULSE 60; RESP 18; TEMP 36.5; O2SAT 100
[2019-11-07 05:50] LABS: Hematocrit 27.5 % (37-47); Mean Corp Hgb Conc 32.7 g/dL (32-36); Mean Corpuscular Hgb 37.7 pg (27.0-32.0); Mean Corpuscular Volume 115.1 fL (81-99); Mean Platelet Vol. 9.2 fl (6.2-12.0); Platelet Count 283 K/mm3 (150-450); RBC Distribution Width CV 11.8 % (11.6-14.6); RBC Distribution Width SD 50.4 fl (35.1-43.9); Red Blood Count 2.39 M/mm3 (4.2-5.4); White Blood Count 11.5 K/mm3 (4.4-11.0)
[2019-11-07] MEDS: Ketorolac 15 MG/ML Vial IV (05:56)
[2019-11-07 06:24] LABS: Anion Gap 6 (5-15); BUN 10 mg/dL (7-18); BUN/Creat Ratio 21.6 RATIO (10-20); Calcium,Total 7.2 mg/dL (8.5-10.1); Chloride 105 mmol/L (98-107); Creatinine, Serum 0.46 mg/dL (0.55-1.02); EST Glomerular Filtration Rate 146 mL/min (>60); Est Glom Filt Rate - Afr Amer 176 mL/min (>60); Estimated Creatinine Clearance 87.05 ml/min; Glucose 122 mg/dL (74-106); Magnesium 1.9 mg/dL (1.6-2.6); Sodium Level 136 mmol/L (136-145)
--- NOTE | 2019-11-07 08:13 | PCM.PN.ORT ---
Patient Problems: Active and Suspected Problems Status post total shoulder replacement (Acute) Subjective: The patient was sitting in bed upon examination. Patient denies any chest pain, shortness of breath, dizziness, lightheadedness, nausea or vomiting, or calf pain. Pain is controlled on medications. No adverse overnight events. Left shoulder is doing well postoperatively. Patient is resting in bed. Patient does have lower blood pressure but even at her baseline she had low blood pressure. She had low blood pressure at her preoperative visit at our office. Patient has been treated for low levels of potassium and magnesium. Objective: Vital signs stable, afebrile Dressing is clean, dry, intact Ultra-sling fitting appropriately Sensation intact to axillary, radial, median, and ulnar distribution Motor intact to AIN, PIN, and ulnar nerve - Physical Exam Vitals/I&O's: Vital Signs Temp Pulse Resp BP Pulse Ox 97.7 F L 60 18 89/55 L 100 11/07/19 05:45 11/07/19 05:45 11/07/19 05:45 11/07/19 05:45 11/07/19 05:45 Oxygen Flow Rate (L/min) 6 Oxygen Delivery Method Room Air Weight: 42.4 kg Body Mass Index (BMI) 16.0 Intake and Output for Last 24 Hours 11/05/19 11/06/19 11/07/19 23:59 23:59 23:59 Intake Total 3947.5 / 3947.5 1250 / 1250 Output Total 100 / 100 Balance 3947.5 / 3847.5 1150 / 1150 General: Alert, Oriented x3, Cooperative, No apparent distress Laboratory Results 11/06/19 10:28: POC Glucose 97 11/07/19 05:40: WBC 11.5 H, RBC 2.39 L, Hgb 9.0 L, Hct 27.5 L, MCV 115.1 H, MCH 37.7 H, MCHC 32.7, RDW Std Deviation 50.4 H, RDW Coeff of Yury 11.8, Plt Count 283, MPV 9.2 11/07/19 05:40: Sodium 136, Potassium 4.0, Chloride 105, Carbon Dioxide 25.0, Anion Gap 6, BUN 10, Creatinine 0.46 L, Estim Creat Clear Calc 87.05, Est GFR (MDRD) Af Amer 176, Est GFR (MDRD) Non-Af 146, BUN/Creatinine Ratio 21.6 H, Glucose 122 H, Calcium 7.2 L, Magnesium 1.9 Current Medications Acetaminophen (Tylenol) 1,000 mg PO Q8 COUNTS INCLUDE 234 BEDS AT [facility] Last Admin: 11/07/19 05:38 Dose: 1,000 mg Documented by: Aspirin (Aspirin) 325 mg PO DAILY@0800 COUNTS INCLUDE 234 BEDS AT THE [facility] Last Admin: 11/06/19 16:31 Dose: Not Given Documented by: Buspirone HCl (Buspar) 7.5 mg PO DAILY PRN PRN PRN Reason: ANXIETY Clonazepam (Klonopin) 0.25 mg PO BID PRN PRN PRN Reason: SEIZURES Enteral Nutritional Formula (Ensure Surgery) 237 ml PO TIDCM COUNTS INCLUDE 234 BEDS AT THE [facility] Last Admin: 11/06/19 18:25 Dose: Not Given Documented by: Famotidine (Pepcid) 20 mg PO DAILY COUNTS INCLUDE 234 BEDS AT THE [facility] Last Admin: 11/06/19 16:31 Dose: Not Given Documented by: Lactated Ringer's () 1,000 mls @ 125 mls/hr IV .Q8H COUNTS INCLUDE 234 BEDS AT THE [facility] Last Admin: 11/07/19 07:27 Dose: Not Given Documented by: Sodium Chloride () 250 mls @ 15 mls/hr IV .[id number] PRN PRN Reason: Saline Flush Sodium Chloride () 250 mls @ 15 mls/hr IV .[id number] PRN PRN Reason: Additional IVPB Infusion Insulin Human Lispro (Humalog Kwikpen ([facility])) 1 - 6 unit SC Q4H PRN PRN; Protocol PRN Reason: BG>/= 180, SEE PROTOCOL Ketorolac Tromethamine (Toradol ([facility])) 15 mg IV Q6H PRN PRN PRN Reason: Pain Score 1-5/10 Stop: 11/08/19 07:27 Last Admin: 11/07/19 05:56 Dose: 15 mg Documented by: Magnesium Oxide (Mag-Ox 400) 400 mg PO DAILY COUNTS INCLUDE 234 BEDS AT THE [facility] Meloxicam (Mobic) 7.5 mg PO BID COUNTS INCLUDE 234 BEDS AT THE [facility] Morphine Sulfate () 2 - 4 mg IV Q2H PRN PRN PRN Reason: Pain Score 6-10/10 Ondansetron HCl (Zofran) 4 mg IV Q8H PRN PRN PRN Reason: NAUSEA Oxcarbazepine (Trileptal) 150 mg PO DAILY COUNTS INCLUDE 234 BEDS AT THE [facility] Oxcarbazepine (Trileptal) 300 mg PO QHS COUNTS INCLUDE 234 BEDS AT THE [facility] Last Admin: 11/06/19 22:07 Dose: 300 mg Documented by: Oxycodone HCl (Oxyir) 5 - 10 mg PO Q4H PRN PRN PRN Reason: Pain Score 4-10/10 Last Admin: 11/07/19 01:18 Dose: 5 mg Documented by: [facility] Promethazine HCl (Phenergan) 12.5 mg IM Q6H PRN PRN; Protocol PRN Reason: NAUSEA/VOMITING Senna/Docusate Sodium (Senokot-S, Myah-Colace) 2 tablet PO BID COUNTS INCLUDE 234 BEDS AT THE [facility] Last Admin: 11/06/19 22:05 Dose: Not Given Documented by: Sodium Chloride () 10 - 40 ml IV UD PRN PRN Reason: SALINE FLUSH Medical Necessity - Tobacco Use Smoking Status: Former smoker Assessment/Plan All Active Problems Status post total shoulder replacement (Acute) 1. S/P left reverse total shoulder arthroplasty secondary to proximal humerus fracture POD #1 2. Continue Pain Medications: Tylenol, meloxicam, oxycodone 3. DVT Prophylaxis: Aspirin 325 mg once daily for 2 weeks postoperatively 4. PT/OT: Nonweightbearing left upper extremity. Continue with UltraSling at all times. Okay to come out 3-4 times daily working on elbow, hand, wrist, pendulum exercises only. Outpatient formal physical therapy will begin after 2-week postoperative follow-up 5. H & H: 9.0/27.5, asymptomatic. Secondary to acute blood loss from surgery and dilution. 6. Encouraged Incentive Spirometry 7. Continue postoperative medical management per medicine: Patient's potassium and magnesium have improved. She does continue to run low blood pressure however she does have low blood pressure at baseline. She is currently asymptomatic. 8. Disposition: Plan will be for possible discharge home today as long as patient is medically cleared and she tolerates therapy. We will continue to monitor her blood pressure. Patient states she already has a follow-up with her primary care physician following the surgery. Prescriptions will be E scribed to her primary pharmacy. She will follow-up per postop instructions. I have reviewed the [place] Automated Rx Reporting System (OARRS) report for this patient for refill pattern and other prescriber involvement as part of the appropriate surveillance for the provision of acute and chronic controlled medications. The report was requested and reviewed on the date of this entry and was considered in the prescribing process.
[2019-11-07 08:20] VITALS: BP 88/53; PULSE 73; RESP 16; TEMP 36.9; O2SAT 100
[2019-11-07] MEDS: Aspirin 325 MG Tablet PO (08:24)
[2019-11-07] MEDS: Magnesium Oxide 400 MG Tablet PO (08:25)
[2019-11-07] MEDS: Famotidine 20 MG Tablet PO (08:25)
[2019-11-07] MEDS: OXcarbazepine 150 MG Tablet PO (08:26)
--- NOTE | 2019-11-07 08:29 | DCINST_ITS ---
Discharge Diet: No Restrictions Discharge Activity: May Not Drive May shower in (days): 1 Ice area for (Minutes): 20 - Ice area for 20 minutes each hour while awake Weight Bearing Status: No weight bearing - Left upper extremity Keep extremity elevated above heart level: Operative Extremity Call your doctor if your incision/area has: Continuous Slow Oozing, Sudden Increased Bleeding, Increased Pain/ Swelling, Increased Redness, Foul Smelling Discharge Call your doctor if you observe: Fever of 101 or Higher, Coldness, Increased Pain, Numbness or Tingling, Change in Color Remove Dressing in (days):: 4 - Okay to remove dressing on November 11, 2019 Additional Instructions: Follow orthopedic postop instructions Allergies/Adverse Reactions: Allergies erythromycin base Allergy (Verified 11/06/19 10:18) TONGUE PEELS Medications to take at Discharge Magnesium Oxide [Magnesium] 500 mg PO DAILY 06/11/18 Buspirone HCl 7.5 mg PO PRN PRN 10/10/19 Clonazepam 0.25 mg PO PRN PRN 10/10/19 Ondansetron [Zofran Odt] 4 mg PO Q8H PRN PRN #10 tab 10/10/19 Oxcarbazepine 150 mg PO DAILY 10/10/19 Docusate Sodium [Colace] 100 mg PO DAILY 10/25/19 Oxcarbazepine [Trileptal] 2 tab PO QHS 10/25/19 Potassium Chloride [Klor-Con 10] 2 tab PO DAILY 10/25/19 Potassium Chloride [Klor-Con M20] 20 meq PO BID 10/25/19 Acetaminophen [Tylenol] 1,000 mg PO Q8 #100 tab 11/07/19 Aspirin 325 mg PO DAILY@0800 #14 tab 11/07/19 Famotidine [Pepcid] 20 mg PO DAILY #14 tab 11/07/19 Meloxicam [Mobic] 7.5 mg PO BID #60 tab 11/07/19 Oxycodone [Oxyir] 5 - 10 mg PO Q4H PRN PRN #40 tablet 11/07/19 The following prescriptions were given: Aspirin 325 mg PO DAILY@0800 #14 tab Transmission Status: Pending to [facility] Meloxicam [Mobic] 7.5 mg PO BID #60 tab Transmission Status: Pending to [facility] Oxycodone [Oxyir] 5 - 10 mg PO Q4H PRN PRN #40 tablet PRN Reason: Pain Score 4-10/10 Transmission Status: Sent to [facility] #[facility] Famotidine [Pepcid] 20 mg PO DAILY #14 tab Transmission Status: Pending to [facility] Acetaminophen [Tylenol] 1,000 mg PO Q8 #100 tab Transmission Status: Pending to [facility] Primary Care Physician: Sarah Briceño [Primary Care Provider] - Test Results: Test results from this visit will be discussed in further detail at your follow- up appointment, if applicable. Please Follow Up With: PCP When: has scheduled follow up next week Please Follow Up With: Sravanthi Bullock NP-C When: 11/20/19 @ 1:45 pm Please Follow Up With: [facility] When: 11/20/19 @ 2:30 pm
--- NOTE | 2019-11-07 08:33 | PN_ITS ---
Patient Problems: Active and Suspected Problems Status post total shoulder replacement (Acute) Reason for Visit: left reverse shoulder arthroplasty on 11/06/2019. Subjective: 59-year-old lady who underwent left reverse shoulder arthroplasty on 11/06/2019. Hospitalist service consulted for management of medical comorbidities Objective: GENERAL: cooperative HEENT: Atraumatic; EYES; Anicteric, Normal Conjunctiva NECK; supple, normal thyroid, RESPIRATORY: Diminished to auscultation CARDIOVASCULAR: Regular S1 S2, GI: soft, normoactive bowel sounds, : No Renal angle tenderness; EXTREMITIES: No edema, no clubbing, MUSCULOSKELETAL: L shoulder Immobilized NEURO: Awake; no lateralizing signs. SKIN: No Rash PSYCH; Flat affect Vitals/I&O's: Vital Signs Temp Pulse Resp BP Pulse Ox 97.7 F L 60 18 89/55 L 100 11/07/19 05:45 11/07/19 05:45 11/07/19 05:45 11/07/19 05:45 11/07/19 05:45 Oxygen Flow Rate (L/min) 6 Oxygen Delivery Method Room Air Weight: 42.4 kg Body Mass Index (BMI) 16.0 Intake and Output for Last 24 Hours 11/05/19 11/06/19 11/07/19 23:59 23:59 23:59 Intake Total 3947.5 / 3947.5 1250 / 1250 Output Total 100 / 100 Balance 3947.5 / 3847.5 1150 / 1150 Laboratory Results 11/06/19 10:28: POC Glucose 97 11/07/19 05:40: WBC 11.5 H, RBC 2.39 L, Hgb 9.0 L, Hct 27.5 L, MCV 115.1 H, MCH 37.7 H, MCHC 32.7, RDW Std Deviation 50.4 H, RDW Coeff of Yury 11.8, Plt Count 283, MPV 9.2 11/07/19 05:40: Sodium 136, Potassium 4.0, Chloride 105, Carbon Dioxide 25.0, Anion Gap 6, BUN 10, Creatinine 0.46 L, Estim Creat Clear Calc 87.05, Est GFR (MDRD) Af Amer 176, Est GFR (MDRD) Non-Af 146, BUN/Creatinine Ratio 21.6 H, Glucose 122 H, Calcium 7.2 L, Magnesium 1.9 Current Medications Acetaminophen (Tylenol) 1,000 mg PO Q8 [facility] Last Admin: 11/07/19 05:38 Dose: 1,000 mg Documented by: Aspirin (Aspirin) 325 mg PO DAILY@0800 [facility] Last Admin: 11/07/19 08:24 Dose: 325 mg Documented by: Buspirone HCl (Buspar) 7.5 mg PO DAILY PRN PRN PRN Reason: ANXIETY Clonazepam (Klonopin) 0.25 mg PO BID PRN PRN PRN Reason: SEIZURES Enteral Nutritional Formula (Ensure Surgery) 237 ml PO TIDCM [facility] Last Admin: 11/07/19 08:23 Dose: Not Given Documented by: Famotidine (Pepcid) 20 mg PO DAILY [facility] Last Admin: 11/07/19 08:25 Dose: 20 mg Documented by: Lactated Ringer's () 1,000 mls @ 125 mls/hr IV .Q8H [facility] Last Admin: 11/07/19 07:27 Dose: Not Given Documented by: Sodium Chloride () 250 mls @ 15 mls/hr IV .[id number] PRN PRN Reason: Saline Flush Sodium Chloride () 250 mls @ 15 mls/hr IV .[id number] PRN PRN Reason: Additional IVPB Infusion Insulin Human Lispro (Humalog Kwikpen (Bk)) 1 - 6 unit SC Q4H PRN PRN; Protocol PRN Reason: BG>/= 180, SEE PROTOCOL Ketorolac Tromethamine (Toradol (Bkc)) 15 mg IV Q6H PRN PRN PRN Reason: Pain Score 1-5/10 Stop: 11/08/19 07:27 Last Admin: 11/07/19 05:56 Dose: 15 mg Documented by: Magnesium Oxide (Mag-Ox 400) 400 mg PO DAILY [facility] Last Admin: 11/07/19 08:25 Dose: 400 mg Documented by: Meloxicam (Mobic) 7.5 mg PO BID [facility] Morphine Sulfate () 2 - 4 mg IV Q2H PRN PRN PRN Reason: Pain Score 6-10/10 Ondansetron HCl (Zofran) 4 mg IV Q8H PRN PRN PRN Reason: NAUSEA Oxcarbazepine (Trileptal) 150 mg PO DAILY [facility] Last Admin: 11/07/19 08:26 Dose: 150 mg Documented by: Oxcarbazepine (Trileptal) 300 mg PO QHS [facility] Last Admin: 11/06/19 22:07 Dose: 300 mg Documented by: Oxycodone HCl (Oxyir) 5 - 10 mg PO Q4H PRN PRN PRN Reason: Pain Score 4-10/10 Last Admin: 11/07/19 01:18 Dose: 5 mg Documented by: [facility] Admin: 11/07/19 08:26 Dose: 20 meq Documented by: Promethazine HCl (Phenergan) 12.5 mg IM Q6H PRN PRN; Protocol PRN Reason: NAUSEA/VOMITING Senna/Docusate Sodium (Senokot-S, Myah-Colace) 2 tablet PO BID [facility] Last Admin: 11/07/19 08:25 Dose: Not Given Documented by: Sodium Chloride () 10 - 40 ml IV UD PRN PRN Reason: SALINE FLUSH STROKE Vital Signs/Narrative: Vital Signs Temp Pulse Resp BP Pulse Ox 11/07/19 05:45 97.7 F L 60 18 89/55 L 100 Medical Necessity - Tobacco Use Smoking Status: Former smoker Assessment/Plan All Active Problems Status post total shoulder replacement (Acute) 59-year-old lady who underwent left reverse shoulder arthroplasty on 11/06/2019. Hospitalist service consulted for management of medical comorbidities 1. S/P Total left reverse shoulder arthroplasty ?Procedure performed on 11/06/2019. Postoperatively. Relatively uneventful plan is for patient to be discharged home after tolerating PT OT 2. Hypertension ?Chronic patient remains asymptomatic 3. Hypokalemia ?Corrected per protocol 4. Hypomagnesemia -corrected per protocol 5. Seizure disorder ?Stable on Trileptal 6. Depression with anxiety ?Patient is on both clonazepam as well as risperidone continue 6. DVT prophylaxis ?Defer to primary service Inpatient E&M: 54695 Subs Hosp L2
--- NOTE | 2019-11-07 10:00 | CASEMGMT ---
RN ANAMIKA Face to Face with patient for initial transition planning/care coordination assessment. RN CM introduced self and role at [facility]. Patient lying in bed, alert and oriented. Patient willing to participate in assessment and is able to answer all questions appropriately. Care providers, pharmacy, and demographics verified. Patient wishes to discharge home, denies need for home health at this time. Patient states she has no further needs or concerns at this time. CM to follow for discharge planning needs that may arise. PCP: Sarah Portillo Specialists: shaun Mitchell Pharmacy: [facility] Insurance: [employer] Prescription Benefit: yes Living Will/HPOA: none LNOK: friend Living Arrangements: Patient lives alone in a 2 story home with bed and bath on first floor. Patient states she was independent at home. Transportation: friend DME/HHC: Patient states she has shower chair and grab bars at home. Patient denies previous HHC or SNF Disposition Plan: Patient to discharge home with family support and follow-up plans in place. Johanna WELLSN, RN, CM
[2019-11-07 11:48] VITALS: BP 88/58; RESP 18; TEMP 36.8; O2SAT 99
== END 2019-11-07 12:04 | disposition home or self-care (01) | DRG 322 ==
PROVIDERS: Anesthesiology; Nurse Practitioner Family; Admitting Provider Specialist; Referring Provider Specialist; Visit Provider Internal Medicine
PROC: 0RRK00Z Replacement of Left Shoulder Joint with Reverse Ball and Socket Synthetic Substitute, Open Approach (ICD-10-PCS; CPT 23472; principal; 2019-11-06 12:00)
DX: S42.222A 2-part displaced fracture of surgical neck of left humerus, initial encounter for closed fracture (principal); W01.0XXA Fall on same level from slipping, tripping and stumbling without subsequent striking against object, initial encounter; Y93.9 Activity, unspecified; Y92.9 Unspecified place or not applicable; Y99.9 Unspecified external cause status; G40.909 Epilepsy, unspecified, not intractable, without status epilepticus; I10 Essential (primary) hypertension; K58.9 Irritable bowel syndrome, unspecified; E83.42 Hypomagnesemia; E87.6 Hypokalemia; F32.9 Major depressive disorder, single episode, unspecified; F41.9 Anxiety disorder, unspecified; Z79.82 Long term (current) use of aspirin; Z79.899 Other long term (current) drug therapy; Z87.891 Personal history of nicotine dependence
CPT/HCPCS: 36415; 73030; 80048; 80053; 82962; 83735; 84132; 85025; 85027; 85610; 85730; 87081; 87635; 93005; 94799; 97166; 97530; 97535; 99251; C1776; J7050; J7120; G0463; J2405; J3475; U0003

== ENCOUNTER → 2019-11-21 11:26 | Outpatient (CLI) | payer MEDICAID, SELFPAY ==
[2019-11-06 16:25] VITALS: BMI 16.0
[2019-11-21 12:17] LABS: Anion Gap 6 (5-15); BUN 7 mg/dL (7-18); BUN/Creat Ratio 14.7 RATIO (10-20); Calcium,Total 7.7 mg/dL (8.5-10.1); Chloride 103 mmol/L (98-107); Creatinine, Serum 0.48 mg/dL (0.55-1.02); EST Glomerular Filtration Rate 141 mL/min (>60); Est Glom Filt Rate - Afr Amer 170 mL/min (>60); Glucose 89 mg/dL (74-106); Potassium 2.8 mmol/L (3.5-5.1); Sodium Level 137 mmol/L (136-145)
== END ==
PROVIDERS: Referring Provider Nurse Practitioner Family; Visit Provider Nurse Practitioner Family
DX: E87.6 Hypokalemia (principal)
CPT/HCPCS: 36415; 80048

== ENCOUNTER → 2020-03-30 13:59 | Outpatient (CLI) | payer MEDICAID, SELFPAY ==
[2019-11-06 16:25] VITALS: BMI 16.0
[2020-03-30 15:04] LABS: Absolute Neutrophil Count 5.5 X10^3/uL (2.0-7.7); Basophil# 0.06 X10^3/uL; Basophil% 0.8 % (0-1); Eosinophil# 0.07 X10^3/uL; Eosinophils% 0.9 % (0-5); Hematocrit 32.3 % (37-47); Hemoglobin 10.8 g/dL (12.0-15.0); Lymphocyte % 14.4 % (19-41); Mean Corp Hgb Conc 33.4 g/dL (32-36); Mean Corpuscular Hgb 36.1 pg (27.0-32.0); Mean Platelet Vol. 9.3 fl (6.2-12.0); Monocyte# 0.83 X10^3/uL; Monocyte% 10.9 % (0-10); NRBC Flagged by Analyzer 0 % (0-5); Neutrophil # 5.53 X10^3/uL (2.7-7.7); Neutrophil % 72.6 % (47-70); Platelet Count 324 K/mm3 (150-450); RBC Distribution Width SD 55.3 fl (35.1-43.9); Red Blood Count 2.99 M/mm3 (4.2-5.4); White Blood Count 7.6 K/mm3 (4.4-11.0)
[2020-03-30 15:46] LABS: Anion Gap 7 (5-15); BUN 11 mg/dL (7-18); BUN/Creat Ratio 24.4 RATIO (10-20); Calcium,Total 7.8 mg/dL (8.5-10.1); Chloride 103 mmol/L (98-107); Creatinine, Serum 0.45 mg/dL (0.55-1.02); EST Glomerular Filtration Rate 151 mL/min (>60); Est Glom Filt Rate - Afr Amer 182 mL/min (>60); Ferritin 344 ng/mL (8-252); Glucose 83 mg/dL (74-106); Iron 109 ug/dL (50-170); Iron Binding Capacity,Total 129 ug/dL (250-450); PERCENT IRON SATURATION 84.5 % (15.0-55.0); Potassium 2.6 mmol/L (3.5-5.1); Sodium Level 139 mmol/L (136-145)
== END ==
DX: E87.6 Hypokalemia (principal); D50.9 Iron deficiency anemia, unspecified
CPT/HCPCS: 36415; 80048; 82728; 83540; 83550; 85025

== ENCOUNTER → 2020-05-15 13:15 | Outpatient (CLI) | payer MEDICAID, SELFPAY ==
[2019-11-06 16:25] VITALS: BMI 16.0
[2020-05-15 14:07] LABS: Anion Gap 6 (5-15); Chloride 103 mmol/L (98-107); Potassium 3.4 mmol/L (3.5-5.1); Sodium Level 138 mmol/L (136-145)
[2020-05-18 16:08] LABS: Endomysial Antibody IgA Negative (Negative)
[2020-05-18 18:03] LABS: Immunoglobulin A 283 mg/dL (87-352); t-Transglutaminase IgA <2 U/mL (0-3)
== END ==
DX: E87.6 Hypokalemia (principal); K58.0 Irritable bowel syndrome with diarrhea
CPT/HCPCS: 36415; 80051; 82784; 83516; 86255

== ENCOUNTER 2020-07-23 20:58 | Inpatient (IN) | payer MEDICAID, SELFPAY ==
[2019-11-06 16:25] VITALS: BMI 16.0
[2020-07-23 20:59] VITALS: BP 100/67; PULSE 82; RESP 18; TEMP 36.4; O2SAT 97; BMI 15.7
[2020-07-23 21:19] LABS: Mucous, Urine 0 SEEN /hpf (<or=2+); Red Blood Cells-Urine 0 SEEN /hpf (0-5)
[2020-07-23 21:26] LABS: Color, Urine Yellow (Yellow); Glucose, Dipstick Normal (Normal); Ketone-Dipstick 5 mg/dl (Negative); Leukocyte Esterase-Dipstick 100 /ul (Negative); Nitrite-Dipstick Positive (Negative); Occult Blood-Urine 10 /ul (Negative); Protein-Dipstick 15 mg/dl (Negative); Urine Bilirubin Dipstick Negative (Negative); Urine Clarity Clear (Clear); Urine Urobilinogen Normal (Normal)
--- NOTE | 2020-07-23 21:28 | EKG12_ITS ---
Test Reason : SUB ABUSE Blood Pressure : / mmHG Vent. Rate : 075 BPM Atrial Rate : 075 BPM P-R Int : 116 ms QRS Dur : 114 ms QT Int : 450 ms P-R-T Axes : 100 046 -76 degrees QTc Int : 502 ms Normal sinus rhythm Inferior infarct , age undetermined , cannot be excluded Anteroseptal infarct , age undetermined , cannot be excluded Abnormal ECG Confirmed by ROSIBEL ANDRES, EMMANUEL ([id number]), medical transcription editor JAG SCHILLING ([id number]) on 07/27/2020 12:26:54 PM Referred By: LAMIN Confirmed By:EMMANUEL GLEASON MD
[2020-07-23 21:31] LABS: White Blood Cells 5-10 SEEN /hpf (0-5)
[2020-07-23 21:32] LABS: Bacteria 1+ /hpf (None Seen); Squamous Epithelial Cells - UA 0-5 SEEN /hpf (5-10)
[2020-07-23 21:36] LABS: Amphetamine Urine VISTA NEGATIVE (<1000 ng/mL); Barbiturate Urine VISTA NEGATIVE (< 200 ng/mL); Benzodiazepine Urine VISTA NEGATIVE (< 200 ng/mL); Cocaine Urine VISTA NEGATIVE (< 300 ng/mL); Ecstacy Urine VISTA NEGATIVE (< 500 ng/mL); Methadone Urine VISTA NEGATIVE (< 300 ng/mL); PCP Urine VISTA NEGATIVE (< 25 ng/mL); THC Urine VISTA POSITIVE (< 50 ng/mL); Vista UDS pH Range 6
--- NOTE | 2020-07-23 21:40 | EDS_ITS ---
HPI History of Present Illness Chief Complaint: Substance Abuse Informant: patient Narrative Narrative: The patient is a 60-year-old female who presents to the emergency department requesting detox from alcohol. Patient states she has a longstanding history of alcohol abuse. She states that she does drink daily. She states that she drank today. She states that the longest she is ever gone has been 2 days without drinking. She has had seizures before, but also has underlying seizure disorder. She states she been compliant with her medications. She denies being suicidal or homicidal. She also states that she abuses marijuana. [facility] Medical History (Updated 07/23/20 @ 22:[address] Iggy Iglesias MD) Anxiety Depression ETOH abuse IBS (irritable bowel syndrome) Seizure Home Medications magnesium oxide 250 mg PO TID 06/11/18 [History Last Taken Unknown] buspirone 7.5 mg PO PRN PRN 10/10/19 [History Last Taken Unknown] clonazepam 0.25 mg PO PRN PRN 10/10/19 [History Last Taken Unknown] Potassium Chloride [Klor-Con M20] 20 meq PO BID 10/25/19 [History Last Taken Unknown] ascorbic acid (vitamin C) [Vitamin C] 500 mg PO DAILY 07/23/20 [History Last Taken Unknown] divalproex 300 mg PO DAILY 07/23/20 [History Last Taken Unknown] ferrous sulfate 325 mg PO DAILY 07/23/20 [History Last Taken Unknown] fluoxetine 20 mg PO DAILY 07/23/20 [History Last Taken Unknown] Allergy/AdvReac Type Severity Reaction Status Date / Time erythromycin base Allergy TONGUE Verified 07/23/20 21:01 HALIMA Surgical History (Updated 07/23/20 @ 22:02 by Tariq Banda) Shoulder joint replacement status Social History Smoking Status: Former smoker ROS ROS ED Constitutional Constitutional ED: Denies chills or fever(s) Eyes Eyes: Denies blurry vision or change in vision ENT ENT ED: Denies ear pain or sore throat Cardiovascular Cardiovascular: Denies chest pain or palpitations Respiratory/Chest Respiratory/Chest: Denies cough, dyspnea or dyspnea on exertion Gastrointestinal Gastrointestinal: Denies abdominal pain, nausea or vomiting Genitourinary Genitourinary ED: Denies dysuria or urinary frequency Musculoskeletal Musculoskeletal: Denies arthralgias or myalgias Integumentary Denies rash Neurologic Neurologic: Denies headache(s) or paresthesias Psychiatric Psychiatric: Denies anxiety or depression Endocrine Endocrinology: Denies polydipsia or polyuria Allergic/Immunologic Allergic/Immunologic ED: Denies urticaria EXAM Physical Exam Const Vital Signs: 07/23/20 20:59 Temperature 97.6 F L Temperature Source Temporal Pulse Rate 82 Respiratory Rate 18 Blood Pressure 100/67 Blood Pressure Mean 78 Pulse Ox 97 Oxygen Delivery Method Room Air Positive well nourished and well developed General Appearance ED: well developed HEENT Reports normocephalic, head/scalp atraumatic and moist mucous membranes Eyes PERRL and EOMs intact bilaterally Neck no lymphadenopathy and supple General: Negative for tenderness Chest Wall inspection of chest normal Resp normal respiratory effort and clear to auscultation bilaterally Cardio regular rate, regular rhythm and no murmurs GI normal to inspection, nondistended, normoactive bowel sounds Palpation: Negative for tender, guarding or rebound tenderness present Back/Spine no CVA tenderness Cervical Spine: Negative for cervical spine tenderness Thoracic Spine / Upper Back: Negative for thoracic spinal tenderness Extremity normal to inspection General Extremety ED: Negative for tenderness Neuro oriented x3 and CN's II-XII intact bilaterally Neuro Narrative: No focal deficits appreciated. Sensorium / Orientation: alert Psych mental status grossly normal Skin no rashes or lesions noted, no wounds and skin turgor normal MDM MDM MDM Narrative Medical decision making narrative: The patient presents to the emergency department requesting detox from alcohol. Metabolic work-up was pursued. Screening labs do demonstrate hypokalemia and this was replaced orally. I did obtain an EKG. It was sinus rhythm. There was no acute ischemia. It was unchanged from prior. At this point, the patient is medically cleared. She is discussed with the hospitalist and will be admitted for alcohol detox. Impression 1. Alcohol dependence Lab Data Attestation: I reviewed the patient's lab results. Labs: Laboratory Results - last 24 hr 07/23/20 07/23/20 07/23/20 21:15 21:15 21:50 WBC 7.6 RBC 3.02 L Hgb 11.3 L Hct 32.7 L MCV 108.3 H MCH 37.4 H MCHC 34.6 RDW Std Deviation 45.8 H RDW Coeff of Yury 11.7 Plt Count 188 MPV 9.4 Immature Gran % (Auto) 0.300 Neut % (Auto) 58.1 Lymph % (Auto) 25.0 [place] % (Auto) 12.4 H Eos % (Auto) 3.3 Baso % (Auto) 0.9 Absolute Neuts (auto) 4.4 Absolute Lymphs (auto) 1.89 Nucleated RBC % 0 Sodium Potassium Chloride Carbon Dioxide Anion Gap BUN Creatinine Estim Creat Clear Calc Est GFR (MDRD) Af Amer Est GFR (MDRD) Non-Af BUN/Creatinine Ratio Glucose Calcium Total Bilirubin AST ALT Alkaline Phosphatase Total Protein Albumin Globulin Albumin/Globulin Ratio Lipase Urine Color Yellow Urine Clarity Clear Urine pH 6.0 Ur Specific [place] 1.010 Urine Protein 15 H Urine Glucose (UA) Normal Urine Ketones 5 H Urine Occult Blood 10 H Urine Nitrite Positive H Urine Bilirubin Negative Urine Urobilinogen Normal Ur Leukocyte Esterase 100 H Urine RBC 0 SEEN Urine WBC 5-10 SEEN Ur Squamous Epith Cells 0-5 SEEN Urine Bacteria 1+ Urine Mucus 0 SEEN Urine Opiates Screen POSITIVE H Urine Methadone Screen NEGATIVE Ur Barbiturates Screen NEGATIVE Ur Phencyclidine Scrn NEGATIVE Ur Amphetamines Screen NEGATIVE U Methamphetamin-MDMA NEGATIVE U Benzodiazepines Scrn NEGATIVE Urine Cocaine Screen NEGATIVE U Cannabinoids Screen POSITIVE H Ur Drug Screen Comment Ethyl Alcohol 07/23/20 07/23/20 21:50 21:50 WBC RBC Hgb Hct MCV MCH MCHC RDW Std Deviation RDW Coeff of Yury Plt Count MPV Immature Gran % (Auto) Neut % (Auto) Lymph % (Auto) [place] % (Auto) Eos % (Auto) Baso % (Auto) Absolute Neuts (auto) Absolute Lymphs (auto) Nucleated RBC % Sodium 138 Potassium 2.8 L Chloride 103 Carbon Dioxide 29.0 Anion Gap 6 BUN 15 Creatinine 0.50 L Estim Creat Clear Calc 80.38 Est GFR (MDRD) Af Amer 159 Est GFR (MDRD) Non-Af 132 BUN/Creatinine Ratio 29.7 H Glucose 90 Calcium 8.6 Total Bilirubin 0.30 AST 64 H ALT 30 Alkaline Phosphatase 153 H Total Protein 7.0 Albumin 3.3 Globulin 3.7 Albumin/Globulin Ratio 0.9 Lipase 142 Urine Color Urine Clarity Urine pH Ur Specific [place] Urine Protein Urine Glucose (UA) Urine Ketones Urine Occult Blood Urine Nitrite Urine Bilirubin Urine Urobilinogen Ur Leukocyte Esterase Urine RBC Urine WBC Ur Squamous Epith Cells Urine Bacteria Urine Mucus Urine Opiates Screen Urine Methadone Screen Ur Barbiturates Screen Ur Phencyclidine Scrn Ur Amphetamines Screen U Methamphetamin-MDMA U Benzodiazepines Scrn Urine Cocaine Screen U Cannabinoids Screen Ur Drug Screen Comment Ethyl Alcohol 62.0 Discharge Plan Triage Chief Complaint: Substance Abuse ED Provider: Iggy Iglesias Dx/Rx/DC Orders Clinical Impression: Alcohol dependence Prescriptions: No Action magnesium oxide 500 MG capsule 250 mg PO TID RF: 0 buspirone 7.5 MG tablet 7.5 mg PO PRN PRN (Reason: Anxiety) RF: 0 clonazepam 0.25 MG tablet,disintegrating 0.25 mg PO PRN PRN (Reason: Seizures) RF: 0 Potassium Chloride [Klor-Con M20] 20 MEQ Tab.Er.Prt 20 meq PO BID RF: 0 ferrous sulfate 325 mg (65 mg iron) Tablet 325 mg PO DAILY RF: 0 ascorbic acid (vitamin C) [Vitamin C] 500 mg Tablet,Chewable 500 mg PO DAILY RF: 0 fluoxetine 20 mg Capsule 20 mg PO DAILY RF: 0 divalproex 125 mg Capsule, Delayed Rel Sprinkle 300 mg PO DAILY RF: 0 Primary Care Provider: [facility] Sarah Sosa Referrals: [facility] Sarah Sosa [Primary Care Provider] -
[2020-07-23 22:04] LABS: Absolute Lymphocyte Count 1.89 X10^3/uL (0.83-4.51); Absolute Neutrophil Count 4.4 X10^3/uL (2.0-7.7); Basophil# 0.07 X10^3/uL; Basophil% 0.9 % (0-1); Eosinophil# 0.25 X10^3/uL; Eosinophils% 3.3 % (0-5); Hematocrit 32.7 % (37-47); Hemoglobin 11.3 g/dL (12.0-15.0); Lymphocyte # 1.89 X10^3/ul (0.83-4.51); Mean Corp Hgb Conc 34.6 g/dL (32-36); Mean Corpuscular Hgb 37.4 pg (27.0-32.0); Mean Corpuscular Volume 108.3 fL (81-99); Mean Platelet Vol. 9.4 fl (6.2-12.0); Monocyte# 0.94 X10^3/uL; Monocyte% 12.4 % (0-10); NRBC Flagged by Analyzer 0 % (0-5); Neutrophil # 4.39 X10^3/uL (2.7-7.7); Neutrophil % 58.1 % (47-70); Platelet Count 188 K/mm3 (150-450); RBC Distribution Width CV 11.7 % (11.6-14.6); RBC Distribution Width SD 45.8 fl (35.1-43.9); Red Blood Count 3.02 M/mm3 (4.2-5.4); White Blood Count 7.6 K/mm3 (4.4-11.0)
[2020-07-23 22:25] LABS: ALB/GLOB Ratio 0.9 RATIO (0.9-2.4); AST(SGOT) 64 U/L (15-37); Alanine Aminotransfer ALT/SGPT 30 U/L (13-56); Albumin, Serum 3.3 g/dL (3.2-5.0); Alkaline Phosphatase 153 U/L (45-117); Anion Gap 6 (5-15); BUN 15 mg/dL (7-18); BUN/Creat Ratio 29.7 RATIO (10-20); Calcium,Total 8.6 mg/dL (8.5-10.1); Chloride 103 mmol/L (98-107); EST Glomerular Filtration Rate 132 mL/min (>60); Est Glom Filt Rate - Afr Amer 159 mL/min (>60); Estimated Creatinine Clearance 80.38 ml/min; Globulin 3.7 g/dL (2.2-4.2); Glucose 90 mg/dL (74-106); Lipase 142 U/L (73-393); Potassium 2.8 mmol/L (3.5-5.1); Sodium Level 138 mmol/L (136-145)
[2020-07-23] MEDS: Potassium Chloride Oral Tablet 20 MEQ 60 MEQ PO (22:46)
[2020-07-23 23:00] VITALS: BP 105/70; PULSE 84; RESP 14; O2SAT 98
--- NOTE | 2020-07-23 23:18 | HP.PCM.HOS_ITS ---
HPI - General General Date of Admission: 07/23/20 Chief Complaint: desire for detoxification HPI Narrative MICK KOCH, is a 60 F with a significant history of anxiety; depression; alcohol abuse; chronic hypokalemia; irritable bowel syndrome; and seizures who presents to the emergency department for help with alcohol detoxification. Patient drinks about 2 bottles of 'sambuca'per week. Last time he drank was the same night of presentation. She denies any withdrawal symptoms. She has tremors but she thinks it is not secondary to withdrawal. She fell at her job about 4 days prior to presentation and sustained a skin tear on his left forearm. She denies that the fall was secondary to alcoholism. [facility] Medical History (Updated 07/24/20 @ 02:[address] Pipe Pettit MD) Anxiety Depression ETOH abuse IBS (irritable bowel syndrome) Marijuana abuse Seizure Home Medications magnesium oxide 250 mg PO TID 06/11/18 [History Last Taken Unknown] buspirone 7.5 mg PO PRN PRN 10/10/19 [History Last Taken Unknown] clonazepam 0.25 mg PO PRN PRN 10/10/19 [History Last Taken Unknown] Potassium Chloride [Klor-Con M20] 20 meq PO BID 10/25/19 [History Last Taken Unknown] ascorbic acid (vitamin C) [Vitamin C] 500 mg PO DAILY 07/23/20 [History Last Taken Unknown] divalproex 300 mg PO DAILY 07/23/20 [History Last Taken Unknown] ferrous sulfate 325 mg PO DAILY 07/23/20 [History Last Taken Unknown] fluoxetine 20 mg PO DAILY 07/23/20 [History Last Taken Unknown] Allergy/AdvReac Type Severity Reaction Status Date / Time erythromycin base Allergy TONGUE Verified 07/23/20 21:01 ABENAELS Family History Sister Melanoma Father Prostate CA Surgical History Shoulder joint replacement status Social History (Updated 07/24/20 @ 02:[address] Pipe Pettit MD) Smoking Status: Former smoker substance use type: marijuana ROS ROS Narrative 12 point review of systems is unremarkable except as stated in HPI. Vital Signs Vital Signs Vital Signs: 07/23/20 20:59 07/23/20 23:00 Temperature 97.6 F L Temperature Source Temporal Pulse Rate 82 84 Respiratory Rate 18 14 Blood Pressure 100/67 105/70 Blood Pressure Mean 78 81 Pulse Ox 97 98 Oxygen Delivery Method Room Air Room Air Physical Exam Narrative Alert and oriented x3 Nontraumatic; normocephalic Lung clear to auscultate Heart sounds S1-S2. No murmur, gallop or rubs. Abdomen bowel sounds present soft, nontender nondistended Extremity without edema cyanosis or clubbing. Tremors Lab / Micro Data Result Diagrams: 07/23/20 21:50 07/23/20 21:50 Labs: Laboratory Results - last 24 hr 07/23/20 07/23/20 07/23/20 21:15 21:15 21:50 WBC 7.6 RBC 3.02 L Hgb 11.3 L Hct 32.7 L MCV 108.3 H MCH 37.4 H MCHC 34.6 RDW Std Deviation 45.8 H RDW Coeff of Yury 11.7 Plt Count 188 MPV 9.4 Immature Gran % (Auto) 0.300 Neut % (Auto) 58.1 Lymph % (Auto) 25.0 [place] % (Auto) 12.4 H Eos % (Auto) 3.3 Baso % (Auto) 0.9 Absolute Neuts (auto) 4.4 Absolute Lymphs (auto) 1.89 Nucleated RBC % 0 Sodium Potassium Chloride Carbon Dioxide Anion Gap BUN Creatinine Estim Creat Clear Calc Est GFR (MDRD) Af Amer Est GFR (MDRD) Non-Af BUN/Creatinine Ratio Glucose Calcium Total Bilirubin AST ALT Alkaline Phosphatase Total Protein Albumin Globulin Albumin/Globulin Ratio Lipase Urine Color Yellow Urine Clarity Clear Urine pH 6.0 Ur Specific [place] 1.010 Urine Protein 15 H Urine Glucose (UA) Normal Urine Ketones 5 H Urine Occult Blood 10 H Urine Nitrite Positive H Urine Bilirubin Negative Urine Urobilinogen Normal Ur Leukocyte Esterase 100 H Urine RBC 0 SEEN Urine WBC 5-10 SEEN Ur Squamous Epith Cells 0-5 SEEN Urine Bacteria 1+ Urine Mucus 0 SEEN Urine Opiates Screen POSITIVE H Urine Methadone Screen NEGATIVE Ur Barbiturates Screen NEGATIVE Ur Phencyclidine Scrn NEGATIVE Ur Amphetamines Screen NEGATIVE U Methamphetamin-MDMA NEGATIVE U Benzodiazepines Scrn NEGATIVE Urine Cocaine Screen NEGATIVE U Cannabinoids Screen POSITIVE H Ur Drug Screen Comment Ethyl Alcohol 07/23/20 07/23/20 21:50 21:50 WBC RBC Hgb Hct MCV MCH MCHC RDW Std Deviation RDW Coeff of Yury Plt Count MPV Immature Gran % (Auto) Neut % (Auto) Lymph % (Auto) [place] % (Auto) Eos % (Auto) Baso % (Auto) Absolute Neuts (auto) Absolute Lymphs (auto) Nucleated RBC % Sodium 138 Potassium 2.8 L Chloride 103 Carbon Dioxide 29.0 Anion Gap 6 BUN 15 Creatinine 0.50 L Estim Creat Clear Calc 80.38 Est GFR (MDRD) Af Amer 159 Est GFR (MDRD) Non-Af 132 BUN/Creatinine Ratio 29.7 H Glucose 90 Calcium 8.6 Total Bilirubin 0.30 AST 64 H ALT 30 Alkaline Phosphatase 153 H Total Protein 7.0 Albumin 3.3 Globulin 3.7 Albumin/Globulin Ratio 0.9 Lipase 142 Urine Color Urine Clarity Urine pH Ur Specific [place] Urine Protein Urine Glucose (UA) Urine Ketones Urine Occult Blood Urine Nitrite Urine Bilirubin Urine Urobilinogen Ur Leukocyte Esterase Urine RBC Urine WBC Ur Squamous Epith Cells Urine Bacteria Urine Mucus Urine Opiates Screen Urine Methadone Screen Ur Barbiturates Screen Ur Phencyclidine Scrn Ur Amphetamines Screen U Methamphetamin-MDMA U Benzodiazepines Scrn Urine Cocaine Screen U Cannabinoids Screen Ur Drug Screen Comment Ethyl Alcohol 62.0 Assessment & Plan Assessment/Plan (1) Alcohol dependence: Status: Acute Code(s): F10.20 - Alcohol dependence, uncomplicated Qualifiers: Substance use status: uncomplicated Qualified Code(s): F10.20 - Alcohol dependence, uncomplicated (2) Marijuana abuse: Status: Acute Code(s): F12.10 - Cannabis abuse, uncomplicated (3) Hypokalemia: Status: Acute Code(s): E87.6 - Hypokalemia (4) Fall: Status: Acute Code(s): W19.XXXA - Unspecified fall, initial encounter Qualifiers: Encounter type: initial encounter Qualified Code(s): W19.XXXA - Unspecified fall, initial encounter Plan: Patient is a 60 F with a significant history of anxiety; depression; alcohol abuse; chronic hypokalemia; irritable bowel syndrome; and seizures who presents to the emergency department for help with alcohol detoxification. Alcohol dependence and desire for detoxification Patient be started on phenobarbital and other adjunctive medications: Gabapentin as needed; dicyclomine as needed; Vistaril as needed; methocarbamol as needed; Imodium as needed; trazodone as needed; Zofran as needed; scheduled thiamine; and schedule folic acid.. Monitor CIWA score Marijuana abuse Counseled Nicotine patch prescribed. Hypokalemia Patient has a history of hypokalemia and is on chronic potassium supplementation. Received potassium supplementation at the emergency department. Escalate home dose of potassium supplementation. Trend BMP. Fall with skin tear Steri strips and dressing placed Change dressing as necessary Depression/anxiety/seizures Depakote and fluoxetine continued. DVT prophylaxis Low risk Encourage to ambulate Inpatient E&M: 82063 Init Hosp L3
[2020-07-23 23:21] VITALS: BP 105/70; PULSE 84; RESP 14; TEMP 36.4; O2SAT 98
--- NOTE | 2020-07-23 23:39 | ED.RN ---
CALLED [facility] FOR THIS ADMISSION
[2020-07-24 00:38] VITALS: BP 110/71; PULSE 78; RESP 16; TEMP 36.6; O2SAT 97; BMI 15.5
[2020-07-24] MEDS: Phenobarbital 32.4 MG Tablet PO ×6 (01:34→20:25)
[2020-07-24 05:14] VITALS: BP 96/62; PULSE 64; RESP 16; TEMP 36.6; O2SAT 100
[2020-07-24 07:33] VITALS: BP 93/62; PULSE 68; RESP 16; TEMP 36.6; O2SAT 99
[2020-07-24] MEDS: Folic Acid 1 MG Tablet PO (07:41)
[2020-07-24] MEDS: Potassium Chloride Oral Tablet 20 MEQ 40 MEQ PO ×3 (07:41→17:26)
[2020-07-24] MEDS: Ferrous Sulfate 325 MG Tablet PO (07:41)
[2020-07-24] MEDS: Magnesium Chloride 64 MG Delay Rel.Tablet 128 MG PO ×2 (07:42→17:26)
[2020-07-24] MEDS: Thiamine Hydrochloride 100 MG Tablet PO (07:42)
[2020-07-24] MEDS: Divalproex (ER) 250 MG Tablet PO (10:19)
[2020-07-24] MEDS: FLUoxetine 20 MG Capsule PO (10:21)
[2020-07-24] MEDS: Ascorbic Acid 500 MG Tablet PO (10:21)
--- NOTE | 2020-07-24 11:14 | ADDICTION ---
This designer/writer met with PT to conduct ASAM, MSE, AUDIT assessments and to plan for d/c. PT A+Ox4 and participated appropriately. All assessments completed, faxed to [facility] and placed in PT's chart. PT requesting referral to [facility]. This designer/writer will submit referral to [facility] director for approval. PT to be transported post d/c by friend, Calli. She will be picked up at the [facility] main entrance on 07/28/20 at 10am. This designer/writer has requested that patient be kept in the RAMP program until 07/28/20 based on Residential availability.
--- NOTE | 2020-07-24 11:26 | PN.HOSP_ITS ---
Subjective Subjective: Patient seen and examined. She feels sleepy. Denied any new complaints. Objective Data Objective Data Vital Signs: Vital Signs Temp Pulse Resp BP Pulse Ox 97.8 F 68 16 93/62 99 07/24/20 07:33 07/24/20 07:33 07/24/20 07:33 07/24/20 07:33 07/24/20 07:33 Oxygen Delivery Method Room Air Weight: 93 lb 3.2 oz Body Mass Index (BMI) 15.5 Lab / Micro Data Result Diagrams: 07/23/20 21:50 07/23/20 21:50 Labs: Laboratory Results - last 24 hr 07/23/20 07/23/20 07/23/20 21:15 21:15 21:50 WBC 7.6 RBC 3.02 L Hgb 11.3 L Hct 32.7 L MCV 108.3 H MCH 37.4 H MCHC 34.6 RDW Std Deviation 45.8 H RDW Coeff of Yury 11.7 Plt Count 188 MPV 9.4 Immature Gran % (Auto) 0.300 Neut % (Auto) 58.1 Lymph % (Auto) 25.0 [place] % (Auto) 12.4 H Eos % (Auto) 3.3 Baso % (Auto) 0.9 Absolute Neuts (auto) 4.4 Absolute Lymphs (auto) 1.89 Nucleated RBC % 0 Sodium Potassium Chloride Carbon Dioxide Anion Gap BUN Creatinine Estim Creat Clear Calc Est GFR (MDRD) Af Amer Est GFR (MDRD) Non-Af BUN/Creatinine Ratio Glucose Calcium Total Bilirubin AST ALT Alkaline Phosphatase Total Protein Albumin Globulin Albumin/Globulin Ratio Lipase Urine Color Yellow Urine Clarity Clear Urine pH 6.0 Ur Specific [place] 1.010 Urine Protein 15 H Urine Glucose (UA) Normal Urine Ketones 5 H Urine Occult Blood 10 H Urine Nitrite Positive H Urine Bilirubin Negative Urine Urobilinogen Normal Ur Leukocyte Esterase 100 H Urine RBC 0 SEEN Urine WBC 5-10 SEEN Ur Squamous Epith Cells 0-5 SEEN Urine Bacteria 1+ Urine Mucus 0 SEEN Urine Opiates Screen POSITIVE H Urine Methadone Screen NEGATIVE Ur Barbiturates Screen NEGATIVE Ur Phencyclidine Scrn NEGATIVE Ur Amphetamines Screen NEGATIVE U Methamphetamin-MDMA NEGATIVE U Benzodiazepines Scrn NEGATIVE Urine Cocaine Screen NEGATIVE U Cannabinoids Screen POSITIVE H Ur Drug Screen Comment Ethyl Alcohol 07/23/20 07/23/20 21:50 21:50 WBC RBC Hgb Hct MCV MCH MCHC RDW Std Deviation RDW Coeff of Yury Plt Count MPV Immature Gran % (Auto) Neut % (Auto) Lymph % (Auto) Fill[place] % (Auto) Eos % (Auto) Baso % (Auto) Absolute Neuts (auto) Absolute Lymphs (auto) Nucleated RBC % Sodium 138 Potassium 2.8 L Chloride 103 Carbon Dioxide 29.0 Anion Gap 6 BUN 15 Creatinine 0.50 L Estim Creat Clear Calc 80.38 Est GFR (MDRD) Af Amer 159 Est GFR (MDRD) Non-Af 132 BUN/Creatinine Ratio 29.7 H Glucose 90 Calcium 8.6 Total Bilirubin 0.30 AST 64 H ALT 30 Alkaline Phosphatase 153 H Total Protein 7.0 Albumin 3.3 Globulin 3.7 Albumin/Globulin Ratio 0.9 Lipase 142 Urine Color Urine Clarity Urine pH Ur Specific [place] Urine Protein Urine Glucose (UA) Urine Ketones Urine Occult Blood Urine Nitrite Urine Bilirubin Urine Urobilinogen Ur Leukocyte Esterase Urine RBC Urine WBC Ur Squamous Epith Cells Urine Bacteria Urine Mucus Urine Opiates Screen Urine Methadone Screen Ur Barbiturates Screen Ur Phencyclidine Scrn Ur Amphetamines Screen U Methamphetamin-MDMA U Benzodiazepines Scrn Urine Cocaine Screen U Cannabinoids Screen Ur Drug Screen Comment Ethyl Alcohol 62.0 Physical Exam Narrative Physical exam: General: Alert, Oriented x3, Cooperative, No apparent distress, Well developed HEENT: Atraumatic Oral: Moist Mucosa Neck: Supple Lungs: Clear to auscultation Cardiovascular: HS I+II, regular, no murmurs Abdomen: Bowel Sounds Present, Soft, Non Tender Extremities: No edema Skin: No rashes, No breakdown Neurological: Grossly intact Psych/Mental Status: Appropriate Assessment & Plan Assessment/Plan (1) Alcohol dependence: Status: Acute Code(s): F10.20 - Alcohol dependence, uncomplicated Qualifiers: Substance use status: uncomplicated Qualified Code(s): F10.20 - Alcohol dependence, uncomplicated (2) Marijuana abuse: Status: Acute Code(s): F12.10 - Cannabis abuse, uncomplicated (3) Hypokalemia: Status: Acute Code(s): E87.6 - Hypokalemia (4) Fall: Status: Acute Code(s): W19.XXXA - Unspecified fall, initial encounter Qualifiers: Encounter type: initial encounter Qualified Code(s): W19.XXXA - Unspecified fall, initial encounter Plan: Continue with potassium replacement; add an extra 40mEq p.o. x1 Check magnesium levels Continue with the phenobarbital withdrawal protocol Continue with the rest of her home medications Visit Charges Inpatient E&M: 15290 Subs Hosp L2
[2020-07-24 11:51] LABS: Magnesium 1.6 mg/dL (1.6-2.6)
--- NOTE | 2020-07-24 12:12 | PCM.NTREPORT ---
Nutrition Therapy Report - History Nutrition Services has been consulted to:: Manage nutrient details of diet order Current diet / nutrition support order:: Regular - Anthropometric Measurements Height:: 5 ft 5 in Weight:: 93 lb Body Mass Index (BMI):: 15.5 - Relevant Labs Relevant Labs:: RBC 3.02 M/mm3 (4.2-5.4) L 07/23/20 21:50 Hgb 11.3 g/dL (12.0-15.0) L 07/23/20 21:50 Hct 32.7 % (37-47) L 07/23/20 21:50 MCV 108.3 fL (81-99) H 07/23/20 21:50 MCH 37.4 pg (27.0-32.0) H 07/23/20 21:50 RDW Std Deviation 45.8 fl (35.1-43.9) H 07/23/20 21:50 Kerr % (Auto) 12.4 % (0-10) H 07/23/20 21:50 Potassium 2.8 mmol/L (3.5-5.1) L 07/23/20 21:50 Creatinine 0.50 mg/dL (0.55-1.02) L 07/23/20 21:50 BUN/Creatinine Ratio 29.7 RATIO (10-20) H 07/23/20 21:50 AST 64 U/L (15-37) H 07/23/20 21:50 Alkaline Phosphatase 153 U/L (45-117) H 07/23/20 21:50 - Assessment Food / Nutrition-Related History:: PO intake has been not good for years. PO intake on MS3 to be estalished. UBW: 105#- wt loss of 11.4% x3-4 mo - sig for malnutrition. Pt on Regular diet at home - po intake has been poor for years and she states I don't care about food - typically skips breakfast. Denies issues chewing/swallowing. Agreeable to chocolate CIB shakes w/ lunch and dinner for increased nutrition if consumed as she would like to gain back some of wt. - Nutrition Diagnosis Problem / Etiology / Signs & Symptoms (PES):: Acute disease r/t malnutrition r/t inadequate energy intake r/t excessive alcohol intake and no appetite aeb pt self report of poor appetite for years, wt loss of 11.4% x 3-4 mo and fat/muscle wasting (temporal/orbital regions, protruding clavicle) Evidence of Malnutrition Exists:: Yes Severe PCM:: Social & Environmental circumstances - Nutrition Intervention Nutrition Prescription:: [id number] dillan/day (RMR x 1.3 + 250 for wt gain). 40-50 gm pro/day (1-1.2 gm/kg). 1545 ml / day (per [place] guidelines) - Food / Nutrient Delivery Interventions Summary of nutrition intervention:: Will continue liberal Regular diet w/ CIB milkshakes w/ L&D. Rec consider appetite stimulant to help increase desire for pt to eat. Nutrition education provided?: No - MNT Monitoring Further MNT monitoring and evaluation required?: Yes MNT Follow-up in:: 3-5 days - please call RD/LD at [phone] if questions/concerns
[2020-07-24 12:19] VITALS: BMI 15.5
[2020-07-24 13:16] VITALS: BP 100/73; PULSE 65; RESP 16; TEMP 36.9; O2SAT 99
--- NOTE | 2020-07-24 16:46 | CASEMGMT ---
DOM Note DOM Burke received call from Emily at [facility]. She indicated that they need documentation from patient's PCP, [facility], documenting patient's seizure disorder, medication and treatment compliance. Emily requested that hospital social workers speak with patient and ask her if she will sign release of information(CECILIA )for [facility]. SW went into patient's room and spoke to patient. SW advised patient that [facility] is requesting medical documentation of patients medication and treatment compliance as well as medical diagnosis from patient's PCP, [facility]. Patient reports she is willing to sign CECILIA for [facility]. SW witnessed patient signing CECILIA for [facility]. SW updated physician office secretary that [facility] is requesting patient's clinical documentation from [facility] concerning her medication and treatment compliance as well as information regarding her seizure disorder. Wilsey called [facility] and requested this information. DOM Turk spoke to Emily at [facility]. She indicated that clinical documentation from [facility] can to be faxed to [facility]. DOM updated physician office secretary that patient's clinical records from [facility] can directly be faxed from [facility] to [facility]. [place] Machine Operator updated [facility]. Plan: [facility] will meet with patient on 07/25/20 to discuss discharge plan and treatment. Records have been requested, for patient, from [facility] and then sent to [facility] per [facility]'s staff member, Emily, request.
[2020-07-24 17:20] VITALS: BP 98/64; PULSE 67; RESP 16; TEMP 36.9; O2SAT 98
[2020-07-24] MEDS: Divalproex (ER) 250 MG Tablet 500 MG PO (20:25)
[2020-07-24 20:28] VITALS: BP 101/67; PULSE 72; RESP 16; TEMP 36.9; O2SAT 100
[2020-07-25 02:00] VITALS: BP 100/65; PULSE 60; RESP 18; TEMP 36.1; O2SAT 100
[2020-07-25] MEDS: Phenobarbital 32.4 MG Tablet PO ×6 (02:07→21:52)
[2020-07-25 08:37] VITALS: BP 96/60; PULSE 55; PULSE 70; RESP 16; TEMP 36.4; O2SAT 98
[2020-07-25] MEDS: Folic Acid 1 MG Tablet PO (08:49)
[2020-07-25] MEDS: Potassium Chloride Oral Tablet 20 MEQ 40 MEQ PO ×2 (08:49→17:47)
[2020-07-25] MEDS: Thiamine Hydrochloride 100 MG Tablet PO (08:50)
[2020-07-25] MEDS: Magnesium Chloride 64 MG Delay Rel.Tablet 128 MG PO ×2 (08:50→17:47)
[2020-07-25] MEDS: FLUoxetine 20 MG Capsule PO (08:50)
[2020-07-25] MEDS: Ferrous Sulfate 325 MG Tablet PO (08:50)
[2020-07-25] MEDS: Ascorbic Acid 500 MG Tablet PO (08:51)
[2020-07-25 09:03] LABS: ALB/GLOB Ratio 0.9 RATIO (0.9-2.4); AST(SGOT) 31 U/L (15-37); Alanine Aminotransfer ALT/SGPT 24 U/L (13-56); Albumin, Serum 2.9 g/dL (3.2-5.0); Alkaline Phosphatase 123 U/L (45-117); Anion Gap 5 (5-15); BUN 11 mg/dL (7-18); BUN/Creat Ratio 22.2 RATIO (10-20); Calcium,Total 8.5 mg/dL (8.5-10.1); Chloride 108 mmol/L (98-107); EST Glomerular Filtration Rate 135 mL/min (>60); Est Glom Filt Rate - Afr Amer 163 mL/min (>60); Estimated Creatinine Clearance 78.68 ml/min; Globulin 3.4 g/dL (2.2-4.2); Glucose 86 mg/dL (74-106); Potassium 4.6 mmol/L (3.5-5.1); Protein, Total 6.3 g/dL (6.4-8.2); Sodium Level 138 mmol/L (136-145)
[2020-07-25] MEDS: Divalproex (ER) 250 MG Tablet PO (09:50)
[2020-07-25] MEDS: Gabapentin 300 MG Capsule PO (14:10)
--- NOTE | 2020-07-25 14:11 | PCM.PN.HOSP ---
Subjective Subjective: Patient was seen and examined. No new complaints. No new events. Objective Data Objective Data Vital Signs: Vital Signs Temp Pulse Resp BP Pulse Ox 97.6 F L 70 16 96/60 98 07/25/20 08:37 07/25/20 08:37 07/25/20 08:37 07/25/20 08:37 07/25/20 08:37 Oxygen Delivery Method Room Air Weight: 93 lb Body Mass Index (BMI) 15.5 Lab / Micro Data Result Diagrams: 07/23/20 21:50 07/25/20 08:24 Labs: Laboratory Results - last 24 hr 07/25/20 08:24 Sodium 138 Potassium 4.6 Chloride 108 H Carbon Dioxide 25.0 Anion Gap 5 BUN 11 Creatinine 0.50 L Estim Creat Clear Calc 78.68 Est GFR (MDRD) Af Amer 163 Est GFR (MDRD) Non-Af 135 BUN/Creatinine Ratio 22.2 H Glucose 86 Calcium 8.5 Total Bilirubin 0.50 AST 31 ALT 24 Alkaline Phosphatase 123 H Total Protein 6.3 L Albumin 2.9 L Globulin 3.4 Albumin/Globulin Ratio 0.9 Physical Exam Narrative Physical exam: General: Alert, Oriented x3, Cooperative, No apparent distress, Well developed HEENT: Atraumatic Oral: Moist Mucosa Neck: Supple Lungs: Clear to auscultation Cardiovascular: HS I+II, regular, no murmurs Abdomen: Bowel Sounds Present, Soft, Non Tender Extremities: No edema Skin: No rashes, No breakdown Neurological: Grossly intact Psych/Mental Status: Appropriate Assessment & Plan Assessment/Plan (1) Alcohol dependence: Status: Acute Code(s): F10.20 - Alcohol dependence, uncomplicated Qualifiers: Substance use status: uncomplicated Qualified Code(s): F10.20 - Alcohol dependence, uncomplicated (2) Marijuana abuse: Status: Acute Code(s): F12.10 - Cannabis abuse, uncomplicated (3) Hypokalemia: Status: Acute Code(s): E87.6 - Hypokalemia (4) Fall: Status: Acute Code(s): W19.XXXA - Unspecified fall, initial encounter Qualifiers: Encounter type: initial encounter Qualified Code(s): W19.XXXA - Unspecified fall, initial encounter (5) Hypomagnesemia: Status: Acute Code(s): E83.42 - Hypomagnesemia Plan: Continue with the phenobarbital withdrawal protocol Continue with the rest of her home medications Visit Charges Inpatient E&M: 09384 Subs Hosp L2
--- NOTE | 2020-07-25 14:15 | NURSING ---
talked with Fire Hazard Inspector for second time about this RAMP patient requesting to see her service dog aware prep room supervisor contacting agency manager of unit to clarify.
--- NOTE | 2020-07-25 14:18 | NURSING ---
aware per smokehouse worker Arvind he talked with manager harbor Yola and No service dog permitted at this time as service dog would require handle which would be in violation her RAMP agreement. recommended giving patient the advocates name/number. Primary RN informed.
--- NOTE | 2020-07-25 14:55 | NURSING ---
pt again explained response from Plant [employer] Specialist and Rip Tailer. given card and phone number of both. explained to patient this nurse called and left message for patient advocate Blanco to reach out to patient when he is here monday. explained to patient that director Yola will also be here monday if she would like to discuss service dog and ramp program at that time.
[2020-07-25 16:16] VITALS: BP 89/58; PULSE 67; RESP 16; TEMP 36.7; O2SAT 99
--- NOTE | 2020-07-25 16:23 | NURSING ---
offered something for anxiety, she declined vistaril.
[2020-07-25 18:47] VITALS: BP 100/59; PULSE 68; RESP 18; TEMP 37; O2SAT 100
[2020-07-25] MEDS: Divalproex (ER) 250 MG Tablet 500 MG PO (21:52)
[2020-07-25 22:00] VITALS: BP 99/75; PULSE 61; RESP 16; TEMP 36.6; O2SAT 99
[2020-07-26] MEDS: Phenobarbital 32.4 MG Tablet PO ×5 (01:37→21:38)
[2020-07-26 02:15] VITALS: BP 98/59; PULSE 61; RESP 16; TEMP 36.6; O2SAT 97
[2020-07-26 07:07] LABS: ALB/GLOB Ratio 0.8 RATIO (0.9-2.4); AST(SGOT) 31 U/L (15-37); Alanine Aminotransfer ALT/SGPT 24 U/L (13-56); Albumin, Serum 3.1 g/dL (3.2-5.0); Alkaline Phosphatase 137 U/L (45-117); Anion Gap 4 (5-15); BUN 13 mg/dL (7-18); BUN/Creat Ratio 22.7 RATIO (10-20); Calcium,Total 8.8 mg/dL (8.5-10.1); Chloride 102 mmol/L (98-107); Creatinine, Serum 0.57 mg/dL (0.55-1.02); EST Glomerular Filtration Rate 114 mL/min (>60); Est Glom Filt Rate - Afr Amer 138 mL/min (>60); Estimated Creatinine Clearance 69.02 ml/min; Globulin 3.7 g/dL (2.2-4.2); Glucose 82 mg/dL (74-106); Magnesium 1.9 mg/dL (1.6-2.6); Potassium 5.3 mmol/L (3.5-5.1); Protein, Total 6.8 g/dL (6.4-8.2); Sodium Level 134 mmol/L (136-145)
[2020-07-26 08:16] VITALS: BP 90/59; PULSE 60; RESP 12; TEMP 36.5; O2SAT 100
[2020-07-26] MEDS: Ferrous Sulfate 325 MG Tablet PO (08:27)
[2020-07-26] MEDS: FLUoxetine 20 MG Capsule PO (08:27)
[2020-07-26] MEDS: Thiamine Hydrochloride 100 MG Tablet PO (08:27)
[2020-07-26] MEDS: Magnesium Chloride 64 MG Delay Rel.Tablet 128 MG PO ×2 (08:27→15:18)
[2020-07-26] MEDS: Folic Acid 1 MG Tablet PO (08:27)
[2020-07-26] MEDS: Ascorbic Acid 500 MG Tablet PO (08:28)
[2020-07-26] MEDS: Divalproex (ER) 250 MG Tablet PO (09:13)
--- NOTE | 2020-07-26 10:12 | PCM.DC.SUM ---
Providers Date of Admission: 07/23/20 Primary Care Physician: Sarah [facility] Reason For Visit: ALCOHOL WITHDRAWL Diagnosis Discharge Diagnosis (1) Alcohol dependence: Status: Acute Code(s): F10.20 - Alcohol dependence, uncomplicated Qualifiers: Substance use status: uncomplicated Qualified Code(s): F10.20 - Alcohol dependence, uncomplicated (2) Marijuana abuse: Status: Acute Code(s): F12.10 - Cannabis abuse, uncomplicated (3) Hypokalemia: Status: Acute Code(s): E87.6 - Hypokalemia (4) Fall: Status: Acute Code(s): W19.XXXA - Unspecified fall, initial encounter Qualifiers: Encounter type: initial encounter Qualified Code(s): W19.XXXA - Unspecified fall, initial encounter (5) Hypomagnesemia: Status: Acute Code(s): E83.42 - Hypomagnesemia Medications at Discharge Home Medications magnesium oxide 250 mg PO TID 06/11/18 buspirone 7.5 mg PO PRN PRN 10/10/19 clonazepam 0.25 mg PO PRN PRN 10/10/19 ascorbic acid (vitamin C) [Vitamin C] 500 mg PO DAILY 07/23/20 ferrous sulfate 325 mg PO DAILY 07/23/20 fluoxetine 20 mg PO DAILY 07/23/20 divalproex [Depakote ER] 250 mg PO DAILY 07/24/20 divalproex [Depakote ER] 500 mg PO QHS 07/24/20 Hospital Course Operations None Procedures None Summary of Care Provided Minutes Spent on Discharge: 40 Hospital Course: 60-year-old female with past medical history of alcohol use/dependence/abuse, anxiety/depression, seizure disorder who comes in requesting for medical stabilization from alcohol withdrawal. Patient was admitted to the MedSur floor and managed on the phenobarbital withdrawal protocol. She continued to improve. She was discharged to follow-up with 180 in the outpatient. Physical Exam Narrative On the day of discharge, patient was seen and examined. Physical exam: General: Alert, Oriented x3, Cooperative, No apparent distress, Well developed HEENT: Atraumatic Oral: Moist Mucosa Neck: Supple Lungs: Clear to auscultation Cardiovascular: HS I+II, regular, no murmurs Abdomen: Bowel Sounds Present, Soft, Non Tender Extremities: No edema Skin: No rashes, No breakdown Neurological: Grossly intact Psych/Mental Status: Appropriate ABG / Lab / Microbiology Data Result Diagrams: 07/23/20 21:50 07/26/20 05:45 Laboratory: Laboratory Results - last 24 hr 07/26/20 05:45 Sodium 134 L Potassium 5.3 H Chloride 102 Carbon Dioxide 28.0 Anion Gap 4 L BUN 13 Creatinine 0.57 Estim Creat Clear Calc 69.02 Est GFR (MDRD) Af Amer 138 Est GFR (MDRD) Non-Af 114 BUN/Creatinine Ratio 22.7 H Glucose 82 Calcium 8.8 Magnesium 1.9 Total Bilirubin 0.30 AST 31 ALT 24 Alkaline Phosphatase 137 H Total Protein 6.8 Albumin 3.1 L Globulin 3.7 Albumin/Globulin Ratio 0.8 L D/C Instructions Discharge Diet: 2000 mg Sodium Diet Discharge Activity: Return to Normal Activity Meaningful Use Info Meaningful Use Diagnoses (Choose all that apply): None applicable Discharge Plan Admission Admit Date/Time: 07/23/20 23:15 Primary Reason for Your Visit: ACUTE ALCOHOL WITHDRAWAL Attending Provider: Rosio Bowman Primary Care Provider: [facility] Sarah Sosa Instructions Additional Instructions / Restrictions: You are strongly advised to avoid alcohol or use of any illicit drug. Avoid smoking. Follow-up with your outpatient rehab program as scheduled. You need to repeat your blood counts in 1 week to check on your potassium levels. Discharge Orders/Prescriptions Prescriptions: Continued magnesium oxide 500 MG capsule 250 mg PO TID RF: 0 buspirone 7.5 MG tablet 7.5 mg PO PRN PRN (Reason: Anxiety) RF: 0 clonazepam 0.25 MG tablet,disintegrating 0.25 mg PO PRN PRN (Reason: Seizures) RF: 0 ferrous sulfate 325 mg (65 mg iron) Tablet 325 mg PO DAILY RF: 0 ascorbic acid (vitamin C) [Vitamin C] 500 mg Tablet,Chewable 500 mg PO DAILY RF: 0 fluoxetine 20 mg Capsule 20 mg PO DAILY RF: 0 divalproex [Depakote ER] 250 mg tablet extended release 24 hr 500 mg PO QHS RF: 0 divalproex [Depakote ER] 250 mg tablet extended release 24 hr 250 mg PO DAILY RF: 0 Discontinued Potassium Chloride [Klor-Con M20] 20 MEQ Tab.Er.Prt 20 meq PO BID RF: 0 Referrals: [facility] Sarah Sosaman [Primary Care Provider] - Within 2 Weeks Disposition Patient Disposition: Home, self care Visit Charges Inpatient E&M: 66938 Disch Hosp
[2020-07-26 13:19] VITALS: BP 93/63; PULSE 74; RESP 16; TEMP 37; O2SAT 98
--- NOTE | 2020-07-26 13:41 | NURSING ---
Calli Leal called and discussed home going instructions with him. He plans to come shortly before 1600 to pick her up.
--- NOTE | 2020-07-26 14:44 | PCM.PN.HOSP ---
Subjective Subjective: Patient was seen and examined. No acute events. She was also said to be discharged when the nursing staff were called by [facility] that her is upset that she is being discharged today and rather wants to come to pick her up and discharge her to the inpatient facility. Patient to be kept until tomorrow for discharge to the inpatient facility Objective Data Objective Data Vital Signs: Vital Signs Temp Pulse Resp BP Pulse Ox 98.6 F 74 16 93/63 98 07/26/20 13:19 07/26/20 13:19 07/26/20 13:19 07/26/20 13:19 07/26/20 13:19 Oxygen Delivery Method Room Air Weight: 93 lb Body Mass Index (BMI) 15.5 Lab / Micro Data Result Diagrams: 07/23/20 21:50 07/26/20 05:45 Labs: Laboratory Results - last 24 hr 07/26/20 05:45 Sodium 134 L Potassium 5.3 H Chloride 102 Carbon Dioxide 28.0 Anion Gap 4 L BUN 13 Creatinine 0.57 Estim Creat Clear Calc 69.02 Est GFR (MDRD) Af Amer 138 Est GFR (MDRD) Non-Af 114 BUN/Creatinine Ratio 22.7 H Glucose 82 Calcium 8.8 Magnesium 1.9 Total Bilirubin 0.30 AST 31 ALT 24 Alkaline Phosphatase 137 H Total Protein 6.8 Albumin 3.1 L Globulin 3.7 Albumin/Globulin Ratio 0.8 L Physical Exam Narrative On the day of discharge, patient was seen and examined. Physical exam: General: Alert, Oriented x3, Cooperative, No apparent distress, Well developed HEENT: Atraumatic Oral: Moist Mucosa Neck: Supple Lungs: Clear to auscultation Cardiovascular: HS I+II, regular, no murmurs Abdomen: Bowel Sounds Present, Soft, Non Tender Extremities: No edema Skin: No rashes, No breakdown Neurological: Grossly intact Psych/Mental Status: Appropriate Assessment & Plan Assessment/Plan (1) Alcohol dependence: Status: Acute Code(s): F10.20 - Alcohol dependence, uncomplicated Qualifiers: Substance use status: uncomplicated Qualified Code(s): F10.20 - Alcohol dependence, uncomplicated (2) Marijuana abuse: Status: Acute Code(s): F12.10 - Cannabis abuse, uncomplicated (3) Hypokalemia: Status: Acute Code(s): E87.6 - Hypokalemia (4) Fall: Status: Acute Code(s): W19.XXXA - Unspecified fall, initial encounter Qualifiers: Encounter type: initial encounter Qualified Code(s): W19.XXXA - Unspecified fall, initial encounter (5) Hypomagnesemia: Status: Acute Code(s): E83.42 - Hypomagnesemia Plan: Continue with the phenobarbital withdrawal protocol Continue with the rest of her home medications Visit Charges Inpatient E&M: 24348 Subs Hosp L2
--- NOTE | 2020-07-26 14:49 | NURSING ---
Discussed with pt. that Calli would like for her to stay until tomorrow, he could take her to the clinic to strip picker records , and take her directly to [facility]. Pt consented to this plan.
[2020-07-26] MEDS: Gabapentin 300 MG Capsule PO (15:37)
[2020-07-26 15:38] VITALS: BP 106/64; PULSE 70; RESP 16; TEMP 36.8; O2SAT 99
--- NOTE | 2020-07-26 16:16 | NURSING ---
Contacted [employer], he stated the pt's dog is a mix bull terrier 47 pounds, name is Honey, he has a vest, has not had training, Is it not a service dog, it is a support dog.
[2020-07-26] MEDS: hydrOXYzine PAM 25 MG Capsule 50 MG PO (16:29)
--- NOTE | 2020-07-26 16:34 | PCA ---
patient is yelling wanting her service dog
--- NOTE | 2020-07-26 18:07 | NURSING ---
talked w/ Charles from [facility], she is aware plan is for patient to stay until tomorrow and DC tomorrow as she/significant other requested. pt in agreement to stay at this time.
--- NOTE | 2020-07-26 18:10 | NURSING ---
pt requesting to go home. This nurse spoke with pt about current POC of pt discharging tomorrow morning with Calli to follow up with [facility]. Pt still requesting to leaving. Spoke with MD about pt request MD ok with pt Discharging if pt wants to leave this evening. This nurse spoke with Calli about pt wish not follow through with plan to dc tomorrow morning and wants to leave tonight. Calli willing to speak with pt about stay tonight. When nurse attempted to take phone back to room pt was resting with eyes closed snoring. Calli requested to leave pt rest and ok for staff to call later if needed.
[2020-07-26 21:35] VITALS: BP 98/58; PULSE 100; RESP 16; TEMP 36.5; O2SAT 95
[2020-07-26] MEDS: Divalproex (ER) 250 MG Tablet 500 MG PO (21:38)
[2020-07-27 03:00] VITALS: BP 100/53; PULSE 64; RESP 16; TEMP 36.6; O2SAT 95
[2020-07-27] MEDS: Phenobarbital 32.4 MG Tablet PO (03:01)
[2020-07-27 05:44] LABS: Absolute Lymphocyte Count 1.73 X10^3/uL (0.83-4.51); Absolute Neutrophil Count 5.1 X10^3/uL (2.0-7.7); Basophil# 0.08 X10^3/uL; Eosinophil# 0.26 X10^3/uL; Eosinophils% 3.2 % (0-5); Hematocrit 35.7 % (37-47); Hemoglobin 11.8 g/dL (12.0-15.0); Lymphocyte # 1.73 X10^3/ul (0.83-4.51); Lymphocyte % 21.5 % (19-41); Mean Corp Hgb Conc 33.1 g/dL (32-36); Mean Corpuscular Hgb 36.4 pg (27.0-32.0); Mean Corpuscular Volume 110.2 fL (81-99); Mean Platelet Vol. 9.8 fl (6.2-12.0); Monocyte% 11.2 % (0-10); NRBC Flagged by Analyzer 0 % (0-5); Neutrophil # 5.07 X10^3/uL (2.7-7.7); Neutrophil % 62.9 % (47-70); Platelet Count 219 K/mm3 (150-450); RBC Distribution Width CV 11.5 % (11.6-14.6); RBC Distribution Width SD 46.7 fl (35.1-43.9); Red Blood Count 3.24 M/mm3 (4.2-5.4); White Blood Count 8.1 K/mm3 (4.4-11.0)
[2020-07-27 06:01] LABS: ALB/GLOB Ratio 0.9 RATIO (0.9-2.4); AST(SGOT) 32 U/L (15-37); Alanine Aminotransfer ALT/SGPT 23 U/L (13-56); Albumin, Serum 3.3 g/dL (3.2-5.0); Alkaline Phosphatase 130 U/L (45-117); Anion Gap 6 (5-15); BUN 14 mg/dL (7-18); BUN/Creat Ratio 23.9 RATIO (10-20); Calcium,Total 8.8 mg/dL (8.5-10.1); Chloride 99 mmol/L (98-107); Creatinine, Serum 0.59 mg/dL (0.55-1.02); EST Glomerular Filtration Rate 111 mL/min (>60); Est Glom Filt Rate - Afr Amer 134 mL/min (>60); Estimated Creatinine Clearance 66.68 ml/min; Globulin 3.6 g/dL (2.2-4.2); Glucose 75 mg/dL (74-106); Potassium 4.2 mmol/L (3.5-5.1); Protein, Total 6.9 g/dL (6.4-8.2); Sodium Level 134 mmol/L (136-145)
[2020-07-27 07:54] VITALS: BP 91/59; PULSE 66; RESP 16; TEMP 37; O2SAT 98
[2020-07-27] MEDS: Magnesium Chloride 64 MG Delay Rel.Tablet 128 MG PO (08:03)
[2020-07-27] MEDS: Ferrous Sulfate 325 MG Tablet PO (08:03)
[2020-07-27] MEDS: Folic Acid 1 MG Tablet PO (08:03)
[2020-07-27] MEDS: Thiamine Hydrochloride 100 MG Tablet PO (08:04)
--- NOTE | 2020-07-27 15:46 | DS.PCM_ITS ---
Providers Date of Admission: 07/23/20 Primary Care Physician: Sarah [facility] Reason For Visit: ALCOHOL WITHDRAWL Diagnosis Discharge Diagnosis (1) Alcohol dependence: Status: Acute Code(s): F10.20 - Alcohol dependence, uncomplicated Qualifiers: Substance use status: uncomplicated Qualified Code(s): F10.20 - Alcohol dependence, uncomplicated (2) Marijuana abuse: Status: Acute Code(s): F12.10 - Cannabis abuse, uncomplicated (3) Hypokalemia: Status: Acute Code(s): E87.6 - Hypokalemia (4) Fall: Status: Acute Code(s): W19.XXXA - Unspecified fall, initial encounter Qualifiers: Encounter type: initial encounter Qualified Code(s): W19.XXXA - Unspecified fall, initial encounter (5) Hypomagnesemia: Status: Acute Code(s): E83.42 - Hypomagnesemia Medications at Discharge Home Medications magnesium oxide 250 mg PO TID 06/11/18 buspirone 7.5 mg PO PRN PRN 10/10/19 clonazepam 0.25 mg PO PRN PRN 10/10/19 ascorbic acid (vitamin C) [Vitamin C] 500 mg PO DAILY 07/23/20 ferrous sulfate 325 mg PO DAILY 07/23/20 fluoxetine 20 mg PO DAILY 07/23/20 divalproex [Depakote ER] 250 mg PO DAILY 07/24/20 divalproex [Depakote ER] 500 mg PO QHS 07/24/20 Hospital Course Operations None Procedures None Summary of Care Provided Minutes Spent on Discharge: 35 Hospital Course: The patient is a 60 y/o F w/ PMHx: Anxiety and Depression, IBS, Seizure disorder, Cannabis usage, Former Tobacco use, EtOH abuse who presented to the [facility] ED on 07/23/20 secondary to history of ongoing EtOH abuse of ~ 2 bottles sambuca per week with last intake the evening prior with onset of withdrawal symptoms. Patient noted interested in attaining sober status. Patient was admitted to the medical surgical floor, routine labs obtained in the ED upon presentation and electrolyte disturbances were corrected. Given interest in sobriety, patient was initiated and continued on taper course of Phenobarbital, scheduled gabapentin for seizure prophylaxis, as needed Catapres, Bentyl, Vistaril, IV fluids, IV antiemetics, Tylenol as needed for pain. Case management consulted for assistance for transition to next level of rehabilitation care. Once patient clinically appropriate on 07/27/2020 patient discharged to care with her friend for plan transition to an outpatient prolonged rehab setting per 180. At discharge patient noted resolution of withdrawal symptoms. DAY OF DISCHARGE PROGRESS NOTE: Subjective: Patient without acute event overnight per self and nursing report. Patient notes resolution of prior withdrawal symptoms. Patient denies fever, chills, nausea, emesis, abdominal pain, chest pain or dyspnea. Patient agreeable to discharge to outpatient rehab facility setting. Patient will be discharged with follow-up with primary care physician within 3-5 days as well as continued follow-up with [facility]. Objective: T 98.6 temporally, heart rate 66, BP 91/59, respiratory rate 16, 98% on room air. Physical Examination: General: awake, alert, oriented x 3 and cooperative, laying in the medical surgical bed, NAD, denies any further withdrawal symptoms. Skin: normal color, turgor, no icterus, cyanosis. HEENT: AT/NC, EOMI, PERRLA, MMM. Lungs: Mildly diminished breath sounds, greater bases, appropriate effort, no rales, ronchi or wheezing; Heart: Regular rate and rhythm; no gallop, rub audible. Abdomen: soft, cachectic habitus, NTTP, ND, normal BS. Extremities: no cyanosis, clubbing, or edema. Neurological: patient awake, alert, oriented as noted; cognitive function appears intact upon questioning; pupils equally reactive to light and accomodation; cranial nerves II-XII grossly normal, moving all 4 extremities, strength mildly global decrease secondary to recent acute withdrawal treatment. Psychiatric: affect appears fatigued otherwise normal, no acute evidence of depr essive or anxiety feelings. Assessment and Plan: Please see hospital summary above. ABG / Lab / Microbiology Data Result Diagrams: 07/27/20 05:20 07/27/20 05:20 Laboratory: Laboratory Results - last 24 hr 07/27/20 07/27/20 05:20 05:20 WBC 8.1 RBC 3.24 L Hgb 11.8 L Hct 35.7 L MCV 110.2 H MCH 36.4 H MCHC 33.1 RDW Std Deviation 46.7 H RDW Coeff of Uyry 11.5 L Plt Count 219 MPV 9.8 Immature Gran % (Auto) 0.200 Neut % (Auto) 62.9 Lymph % (Auto) 21.5 [facility] % (Auto) 11.2 H Eos % (Auto) 3.2 Baso % (Auto) 1.0 Absolute Neuts (auto) 5.1 Absolute Lymphs (auto) 1.73 Nucleated RBC % 0 Sodium 134 L Potassium 4.2 Chloride 99 Carbon Dioxide 29.0 Anion Gap 6 BUN 14 Creatinine 0.59 Estim Creat Clear Calc 66.68 Est GFR (MDRD) Af Amer 134 Est GFR (MDRD) Non-Af 111 BUN/Creatinine Ratio 23.9 H Glucose 75 Calcium 8.8 Total Bilirubin 0.30 AST 32 ALT 23 Alkaline Phosphatase 130 H Total Protein 6.9 Albumin 3.3 Globulin 3.6 Albumin/Globulin Ratio 0.9 D/C Instructions Discharge Diet: 2000 mg Sodium Diet Discharge Activity: Return to Normal Activity Meaningful Use Info Meaningful Use Diagnoses (Choose all that apply): None applicable Discharge Plan Admission Admit Date/Time: 07/23/20 23:15 Primary Reason for Your Visit: ACUTE ALCOHOL WITHDRAWAL Attending Provider: Arely Cummings Primary Care Provider: [facility] Sarah Sosa Instructions Additional Instructions / Restrictions: You are strongly advised to avoid alcohol or use of any illicit drug. Avoid smoking. Follow-up with your outpatient rehab program as scheduled. You need to repeat your blood counts in 1 week to check on your potassium levels. Discharge Orders/Prescriptions Prescriptions: Continued magnesium oxide 500 MG capsule 250 mg PO TID RF: 0 buspirone 7.5 MG tablet 7.5 mg PO PRN PRN (Reason: Anxiety) RF: 0 clonazepam 0.25 MG tablet,disintegrating 0.25 mg PO PRN PRN (Reason: Seizures) RF: 0 ferrous sulfate 325 mg (65 mg iron) Tablet 325 mg PO DAILY RF: 0 ascorbic acid (vitamin C) [Vitamin C] 500 mg Tablet,Chewable 500 mg PO DAILY RF: 0 fluoxetine 20 mg Capsule 20 mg PO DAILY RF: 0 divalproex [Depakote ER] 250 mg tablet extended release 24 hr 500 mg PO QHS RF: 0 divalproex [Depakote ER] 250 mg tablet extended release 24 hr 250 mg PO DAILY RF: 0 Discontinued Potassium Chloride [Klor-Con M20] 20 MEQ Tab.Er.Prt 20 meq PO BID RF: 0 Referrals: [facility],Sarah Richard [Primary Care Provider] - Within 2 Weeks Disposition Disposition (needs filled in before D/C Order can be placed): Home, self care Visit Charges Inpatient E&M: 74102 Disch Hosp
== END 2020-07-27 09:36 | disposition home or self-care (01) | DRG 775 ==
LOC: ED 22:14 → MS3 07-24 01:06
PROVIDERS: Internal Medicine; Admitting Provider Hospitalist; Emergency Provider Emergency Medicine; Visit Provider Family Medicine
DX: F10.20 Alcohol dependence, uncomplicated (principal); F12.10 Cannabis abuse, uncomplicated; E87.6 Hypokalemia; E43 Unspecified severe protein-calorie malnutrition; Z68.1 Body mass index [BMI] 19.9 or less, adult; G40.909 Epilepsy, unspecified, not intractable, without status epilepticus; K58.9 Irritable bowel syndrome, unspecified; S51.812A Laceration without foreign body of left forearm, initial encounter; W19.XXXA Unspecified fall, initial encounter; Y93.9 Activity, unspecified; Y92.9 Unspecified place or not applicable; Y99.0 Civilian activity done for income or pay; F32.9 Major depressive disorder, single episode, unspecified; F41.9 Anxiety disorder, unspecified; Z87.891 Personal history of nicotine dependence; Z96.619 Presence of unspecified artificial shoulder joint
CPT/HCPCS: 36415; 80053; 80307; 81001; 82077; 83690; 83735; 85025; 93005; 97802; 99284; A4216

== ENCOUNTER → 2020-09-03 11:05 | Outpatient (CLI) | payer MEDICAID, SELFPAY ==
--- NOTE | 2020-09-03 11:07 | BD_ITS ---
STUDY: DUAL ENERGY X-RAY ABSORPTIOMETRY / DXA REASON FOR EXAM: Female, 60 years old. M810. The patient is postmenopausal. TECHNIQUE: Bone Mineral Density (BMD) measurements of lumbar spine and bilateral hips were obtained. COMPARISON: None. FINDINGS: Lumbar Spine (L1-L4): g/cm2 (0.919) / T-score (-2.2) / Z-score (-0.9) Findings are suggestive of osteopenia with a high fracture risk. Left Femur Total: g/cm2 (0.658) / T-score (-2.8) / Z-score (-1.8) Left Femoral Neck: g/cm2 (0.569) / T-score (-3.4) / Z-score (-2.1) Right Femur Total: g/cm2 (0.672) / T-score (-2.7) / Z-score (-1.7) Right Femoral Neck: g/cm2 (0.530) / T-score (-3.7) / Z-score (-2.4) BD/Dexa Bone Density Study IMPRESSION: The patient is considered osteoporotic as outlined below according to World Brian Organization (WHO) criteria with a high fracture risk. Reference Information: The T-score is the number of standard deviations above or below the standard which is normal for young adults at their peak bone mineral density. The World Health Organization (WHO) interprets the T-scores as follows: Above -1 Normal bone density Between -1 and -2.5 Osteopenia Equal to / or below -2.5 Osteoporosis As a practical clinical guideline, osteopenia may be graded as follows: Mild -1 through -1.5 Moderate -1.6 through -2.0 Severe -2.1 through -2.4 The Z-score is the number of standard deviations above or below age-matched controls. A Z-score of less than -1.5 would be considered abnormal. References: 1. NIH Osteoporosis and Related Bone Diseases www osteo.org 2. International Society for Clinical Densitometry www iscd.org 3. National Osteoporosis Foundation www nof.org Electronically Signed: Nael Thomas MD at 12:53 EDT , Service support ,
--- NOTE | 2020-09-03 11:07 | BI_ITS ---
MAMMOGRAPHY - BILATERAL SCREENING REASON FOR EXAM: Female, 60 years old. Routine annual screening examination. PERTINENT HISTORY: Grandmother with breast cancer. TECHNIQUE: Digital bilateral breast josé (3D mammographic acquisition) in the CC and MLO projections. 2-D mediolateral oblique (MLO) and craniocaudad (CC) views of both breasts were obtained. CAD: Full Field Digital Mammography with Computer Added Detection was performed. COMPARISON: Comparison is made with prior study dated 12/26/2018 and 10/26/2016. FINDINGS: Breast Composition: The breasts are heterogeneously dense, which may obscure small masses. There are no dominant masses or suspicious calcifications. Stable microcalcifications in the upper aspect of the left breast. No other significant abnormalities are identified. There has been no significant change since the prior study. BI/SCRN MAMM (CAD)W/JOSÉ BILAT IMPRESSION: Stable bilateral screening mammogram. Yearly follow-up mammogram recommended. (A) ASSESSMENT CATEGORY: BIRADS Category 2: Benign. A letter regarding these results will be sent to the patient by the facility within 30 days. Approximately 10% of breast cancers are not detected by mammography. A normal mammogram should not delay biopsy of a clinically suspicious abnormality. [id number] Electronically Signed: Nael Thomas MD at 11:53 EDT , Service support ,
== END ==
PROVIDERS: Referring Provider Nurse Practitioner Adult Health; Visit Provider Nurse Practitioner Adult Health
DX: Z12.31 Encounter for screening mammogram for malignant neoplasm of breast (principal); Z13.820 Encounter for screening for osteoporosis; M81.0 Age-related osteoporosis without current pathological fracture; Z78.0 Asymptomatic menopausal state; Z80.3 Family history of malignant neoplasm of breast
CPT/HCPCS: 77063; 77067; 77080

== ENCOUNTER → 2020-11-03 12:30 | Outpatient (CLI) | payer MEDICAID, SELFPAY ==
[2020-11-03 13:48] LABS: Absolute Lymphocyte Count 1.83 X10^3/uL (0.83-4.51); Absolute Neutrophil Count 3.7 X10^3/uL (2.0-7.7); Basophil# 0.08 X10^3/uL; Basophil% 1.2 % (0-1); Eosinophil# 0.35 X10^3/uL; Eosinophils% 5.3 % (0-5); Hematocrit 36.8 % (37-47); Hemoglobin 11.9 g/dL (12.0-15.0); Lymphocyte # 1.83 X10^3/ul (0.83-4.51); Lymphocyte % 27.7 % (19-41); Mean Corp Hgb Conc 32.3 g/dL (32-36); Mean Corpuscular Hgb 30.6 pg (27.0-32.0); Mean Corpuscular Volume 94.6 fL (81-99); Mean Platelet Vol. 10.3 fl (6.2-12.0); Monocyte% 9.1 % (0-10); NRBC Flagged by Analyzer 0 % (0-5); Neutrophil # 3.73 X10^3/uL (2.7-7.7); Neutrophil % 56.5 % (47-70); Platelet Count 208 K/mm3 (150-450); RBC Distribution Width CV 11.5 % (11.6-14.6); RBC Distribution Width SD 39.7 fl (35.1-43.9); Red Blood Count 3.89 M/mm3 (4.2-5.4); White Blood Count 6.6 K/mm3 (4.4-11.0)
[2020-11-03 14:26] LABS: ALB/GLOB Ratio 0.8 RATIO (0.9-2.4); AST(SGOT) 17 U/L (15-37); Alanine Aminotransfer ALT/SGPT 17 U/L (13-56); Albumin, Serum 3.3 g/dL (3.2-5.0); Alkaline Phosphatase 89 U/L (45-117); Anion Gap 5 (5-15); BUN 20 mg/dL (7-18); BUN/Creat Ratio 32.1 RATIO (10-20); Calcium,Total 8.8 mg/dL (8.5-10.1); Chloride 105 mmol/L (98-107); Creatinine, Serum 0.62 mg/dL (0.55-1.02); EST Glomerular Filtration Rate 103 mL/min (>60); Est Glom Filt Rate - Afr Amer 125 mL/min (>60); Glucose 88 mg/dL (74-106); Protein, Total 7.3 g/dL (6.4-8.2); Sodium Level 140 mmol/L (136-145)
== END ==
PROVIDERS: Visit Provider Nurse Practitioner Adult Health
DX: D64.9 Anemia, unspecified (principal)
CPT/HCPCS: 36415; 80053; 85025

== ENCOUNTER → 2021-01-12 14:33 | Outpatient (CLI) | payer MEDICAID, SELFPAY ==
[2021-01-12 14:59] LABS: Absolute Lymphocyte Count 1.65 X10^3/uL (0.83-4.51); Absolute Neutrophil Count 4.4 X10^3/uL (2.0-7.7); Basophil# 0.07 X10^3/uL; Eosinophil# 0.25 X10^3/uL; Eosinophils% 3.6 % (0-5); Hematocrit 36.5 % (37-47); Lymphocyte # 1.65 X10^3/ul (0.83-4.51); Lymphocyte % 23.9 % (19-41); Mean Corp Hgb Conc 32.9 g/dL (32-36); Mean Corpuscular Volume 91.3 fL (81-99); Mean Platelet Vol. 9.5 fl (6.2-12.0); Monocyte# 0.55 X10^3/uL; NRBC Flagged by Analyzer 0 % (0-5); Neutrophil # 4.37 X10^3/uL (2.7-7.7); Neutrophil % 63.2 % (47-70); Platelet Count 186 K/mm3 (150-450); RBC Distribution Width CV 11.5 % (11.6-14.6); RBC Distribution Width SD 38.7 fl (35.1-43.9); White Blood Count 6.9 K/mm3 (4.4-11.0)
[2021-01-12 15:36] LABS: ALB/GLOB Ratio 0.7 RATIO (0.9-2.4); AST(SGOT) 13 U/L (15-37); Alanine Aminotransfer ALT/SGPT 12 U/L (13-56); Albumin, Serum 3.2 g/dL (3.2-5.0); Alkaline Phosphatase 85 U/L (45-117); Anion Gap 5 (5-15); BUN 21 mg/dL (7-18); BUN/Creat Ratio 30.2 RATIO (10-20); Calcium,Total 8.7 mg/dL (8.5-10.1); Chloride 103 mmol/L (98-107); EST Glomerular Filtration Rate 91 mL/min (>60); Est Glom Filt Rate - Afr Amer 110 mL/min (>60); Globulin 4.3 g/dL (2.2-4.2); Glucose 134 mg/dL (74-106); Potassium 4.6 mmol/L (3.5-5.1); Protein, Total 7.5 g/dL (6.4-8.2); Sodium Level 136 mmol/L (136-145)
[2021-01-12 15:40] LABS: Valproic Acid (Depakene) Level 106 ug/mL (50-100)
[2021-01-18 13:20] LABS: Trileptal-Oxcarbazepine < 1 ug/mL (10-35)
== END ==
DX: G40.109 Localization-related (focal) (partial) symptomatic epilepsy and epileptic syndromes with simple partial seizures, not intractable, without status epilepticus (principal)
CPT/HCPCS: 36415; 80053; 80164; 82542; 85025

== ENCOUNTER 2021-07-02 13:05 | Outpatient (CLI) | payer MEDICAID, SELFPAY ==
[2021-07-02 13:53] LABS: Absolute Lymphocyte Count 2.15 X10^3/uL (0.83-4.51); Absolute Neutrophil Count 5.4 X10^3/uL (2.0-7.7); Basophil% 1.1 % (0-1); Eosinophil# 0.92 X10^3/uL; Eosinophils% 9.8 % (0-5); Hematocrit 36.4 % (37-47); Lymphocyte # 2.15 X10^3/ul (0.83-4.51); Mean Corpuscular Hgb 30.2 pg (27.0-32.0); Mean Corpuscular Volume 91.5 fL (81-99); Mean Platelet Vol. 9.1 fl (6.2-12.0); Monocyte# 0.71 X10^3/uL; Monocyte% 7.6 % (0-10); NRBC Flagged by Analyzer 0 % (0-5); Neutrophil # 5.44 X10^3/uL (2.7-7.7); Neutrophil % 58.1 % (47-70); Platelet Count 271 K/mm3 (150-450); RBC Distribution Width CV 12.1 % (11.6-14.6); RBC Distribution Width SD 40.8 fl (35.1-43.9); Red Blood Count 3.98 M/mm3 (4.2-5.4); White Blood Count 9.4 K/mm3 (4.4-11.0)
[2021-07-02 14:20] LABS: Anion Gap 4 (5-15); BUN 18 mg/dL (7-18); BUN/Creat Ratio 27.5 RATIO (10-20); Calcium,Total 8.5 mg/dL (8.5-10.1); Chloride 106 mmol/L (98-107); Creatinine, Serum 0.66 mg/dL (0.55-1.02); EST Glomerular Filtration Rate 97 mL/min (>60); Est Glom Filt Rate - Afr Amer 118 mL/min (>60); Glucose 87 mg/dL (74-106); Iron 66 ug/dL (50-170); Iron Binding Capacity,Total 330 ug/dL (250-450); Sodium Level 139 mmol/L (136-145)
== END 2021-07-02 23:59 | disposition home or self-care (01) ==
LOC: LAB 13:06
DX: D64.9 Anemia, unspecified (principal)
CPT/HCPCS: 36415; 80048; 83540; 83550; 85025

== ENCOUNTER → 2021-10-11 | Outpatient (CLI) | payer MEDICARE, MEDICAID, SELFPAY ==
[2021-10-11 13:24] LABS: Absolute Neutrophil Count 4.5 X10^3/uL (2.0-7.7); Basophil# 0.12 X10^3/uL; Basophil% 1.5 % (0-1); Eosinophil# 0.82 X10^3/uL; Eosinophils% 10.2 % (0-5); Hematocrit 37.3 % (37-47); Hemoglobin 12.1 g/dL (12.0-15.0); Lymphocyte % 26.1 % (19-41); Mean Corp Hgb Conc 32.4 g/dL (32-36); Mean Corpuscular Hgb 28.9 pg (27.0-32.0); Mean Corpuscular Volume 89.2 fL (81-99); Mean Platelet Vol. 8.9 fl (6.2-12.0); Monocyte% 6.2 % (0-10); NRBC Flagged by Analyzer 0 % (0-5); Neutrophil # 4.47 X10^3/uL (2.7-7.7); Neutrophil % 55.6 % (47-70); Platelet Count 264 K/mm3 (150-450); RBC Distribution Width CV 11.6 % (11.6-14.6); RBC Distribution Width SD 37.6 fl (35.1-43.9); Red Blood Count 4.18 M/mm3 (4.2-5.4)
[2021-10-11 13:57] LABS: ALB/GLOB Ratio 0.8 RATIO (0.9-2.4); AST(SGOT) 19 U/L (15-37); Alanine Aminotransfer ALT/SGPT 14 U/L (13-56); Albumin, Serum 3.3 g/dL (3.2-5.0); Alkaline Phosphatase 104 U/L (45-117); Anion Gap 6 (5-15); BUN 17 mg/dL (7-18); BUN/Creat Ratio 23.9 RATIO (10-20); Calcium,Total 8.8 mg/dL (8.5-10.1); Chloride 107 mmol/L (98-107); Creatinine, Serum 0.71 mg/dL (0.55-1.02); EST Glomerular Filtration Rate 88 mL/min (>60); Est Glom Filt Rate - Afr Amer 107 mL/min (>60); Globulin 4.1 g/dL (2.2-4.2); Glucose 85 mg/dL (74-106); Protein, Total 7.4 g/dL (6.4-8.2); Sodium Level 140 mmol/L (136-145)
== END | disposition home or self-care (01) ==
DX: G40.109 Localization-related (focal) (partial) symptomatic epilepsy and epileptic syndromes with simple partial seizures, not intractable, without status epilepticus (principal)
CPT/HCPCS: 36415; 80053; 85025

== ENCOUNTER 2022-08-16 20:22 | Emergency (ER) | payer MEDICARE, MEDICAID, SELFPAY ==
[2022-08-16 20:23] VITALS: BP 103/74; PULSE 83; RESP 15; TEMP 36.2; O2SAT 96; BMI 17.7
--- NOTE | 2022-08-16 21:51 | EDS_ITS ---
HPI History of Present Illness Chief Complaint: Bite Narrative Narrative: Patient was tried to break up a fight between her dog and another dog at the park. She ended up getting bitten across the dorsum of her right dominant hand. There is lacerations to the dorsum of the hand and then tear across the dorsum of the right index and right long finger. No change in function or range of motion. No numbness or tingling. Initially some mild bleeding but that has stopped spontaneously. Last tetanus is over 5 years ago. No allergies to any medicines although her chart says she is allergic to erythromycin she did not tell me this. She has no other injuries. ROS ROS ED Constitutional Constitutional ED: Denies chills or fever(s) Gastrointestinal Gastrointestinal: Denies nausea or vomiting Musculoskeletal Musculoskeletal: Reports arthralgias Integumentary Reports Abrasions Endocrine Endocrinology: Reports other Details: No history of diabetes ; Denies polydipsia or polyuria Hematologic/Lymphatic Hematologic/Lymphatic: Denies easy bleeding or easy bruising Allergic/Immunologic Allergic/Immunologic ED: Denies urticaria [facility] Medical History (Updated 08/16/22 @ 23:[address] Cristobal Fontenot MD) Anxiety Depression ETOH abuse IBS (irritable bowel syndrome) Marijuana abuse Seizure Home Medications magnesium oxide 500 mg capsule 250 mg PO TID supplement 06/11/18 [History Last Taken Unknown] buspirone 7.5 mg tablet 7.5 mg PO PRN PRN Anxiety 10/10/19 [History Last Taken Unknown] clonazepam 0.25 mg disintegrating tablet 0.25 mg PO PRN PRN Seizures 10/10/19 [History Last Taken Unknown] ascorbic acid (vitamin C) 500 mg chewable tablet (Vitamin C) 500 mg PO DAILY 07/23/20 [History Last Taken Unknown] ferrous sulfate 325 mg (65 mg iron) tablet 325 mg PO DAILY 07/23/20 [History Last Taken Unknown] fluoxetine 20 mg capsule 20 mg PO DAILY 07/23/20 [History Last Taken Unknown] divalproex 250 mg tablet,extended release 24 hr (Depakote ER) 250 mg PO DAILY seizures 07/24/20 [History Last Taken Unknown] divalproex 250 mg tablet,extended release 24 hr (Depakote ER) 500 mg PO QHS seizures 07/24/20 [History Last Taken Unknown] amoxicillin 875 mg-potassium clavulanate 125 mg tablet 1 tab PO BID #14 tabs 08/16/22 [Rx Last Taken Unknown] Allergy/AdvReac Type Severity Reaction Status Date / Time erythromycin base Allergy TONGUE Verified 08/16/22 20:27 ABENAELS Family History Sister Melanoma Father Prostate CA Surgical History Shoulder joint replacement status Social History (Updated 07/24/20 @ 02:[address] Pipe Pettit MD) Smoking Status: Former smoker substance use type: marijuana EXAM Physical Exam Narrative Exam Narrative: Patient awake alert no acute distress sitting comfortably in bed. HEENT shows no trauma Cardiorespiratory shows easy and unlabored breathing. Saturations are normal at 96% on room air. Lower extremities show no trauma. Left upper is normal. She has abrasions/lacerations on the dorsum of her right hand. There is a couple small spots on the dorsum of her hand. There is a U-shaped tear of the skin causing a slight flap over the dorsum of her index finger that stops right at about the proximal interphalangeal joint. This does open up slightly. But no sign of tendinous injury under it. There is more of a linear laceration on the dorsum o f the long finger over the distal aspect of the proximal phalanx. This does not open with range of motion. Distally she has normal sensation capillary refill. Const Vital Signs: 08/16/22 20:23 Temperature 97.2 F L Temperature Source Temporal Pulse Rate 83 Respiratory Rate 15 Blood Pressure 103/74 Blood Pressure Mean 83 Pulse Ox 96 Oxygen Delivery Method Room Air MDM MDM MDM Narrative Medical decision making narrative: Procedure: Cleaning and closing of wound: The hand was soaked and cleansed. The patient scrubbed actually quite well. There is no sign of tendon involvement. The 2 cuts close by on the dorsum of the hand really do not need closure. The other 2 I placed Steri-Strips over so we can keep the slight flap closed but still allow good drainage around the Steri-Strips. They were these were placed so they were not circumferential or tight. I explained the care reasons to follow-up and reasons to return as well as antibiotic treatment with the patient. Radiography Diagnostic Testing: Clinical Impression(s) from Imaging Studies Hand X-Ray 08/16/22 22:00 IMPRESSION: 1. No fracture or foreign body identified. 2. Suspected bone demineralization for age. Electronically Signed: Sandra Mooney MD at 22:31 EDT , Procedures Other Procedures Procedure(s): See MDM. Discharge Plan Triage Chief Complaint: Bite ED Provider: Cristobal Fontenot Dx/Rx/DC Orders Clinical Impression: Dog bite of right hand Instructions: ED Dog Bite Prescriptions: New amoxicillin-pot clavulanate 875-125 mg tablet 1 tab PO BID Qty: 14 0RF No Action magnesium oxide 500 MG capsule 250 mg PO TID buspirone 7.5 MG tablet 7.5 mg PO PRN PRN (Reason: Anxiety) clonazepam 0.25 MG tablet,disintegrating 0.25 mg PO PRN PRN (Reason: Seizures) ferrous sulfate 325 mg (65 mg iron) Tablet 325 mg PO DAILY ascorbic acid (vitamin C) [Vitamin C] 500 mg Tablet,Chewable 500 mg PO DAILY fluoxetine 20 mg Capsule 20 mg PO DAILY divalproex [Depakote ER] 250 mg tablet extended release 24 hr 500 mg PO QHS Label Comments: Take 1 tab (250mg) at bedtime for 7 days. Then take 2 tabs (500mg) at bedtime for 7 days. Then take 1 tab (250mg) in the morning and 2 tabs divalproex [Depakote ER] 250 mg tablet extended release 24 hr 250 mg PO DAILY Label Comments: Take 1 tab (250mg) at bedtime for 7 days. Then take 2 tabs (500mg) at bedtime for 7 days. Then take 1 tab (250mg) in the morning and 2 tabs Primary Care Provider: [facility] Sarah Sosa Referrals: [facility] Sarah Sosa [Primary Care Provider] - 3-5 Days if not improving Disposition Disposition: Home, Self Care
--- NOTE | 2022-08-16 22:00 | RAD_ITS ---
EXAM: XR RIGHT HAND COMPLETE, 3 OR MORE VIEWS CLINICAL INDICATION: Trauma, bite from dog TECHNIQUE: Frontal, lateral and oblique views of the right hand. COMPARISON: No relevant prior studies available. FINDINGS: BONES/JOINTS: The bones appear subjectively demineralized for age with coarse trabeculae. There is mild skin irregularity at the dorsum of the fourth digit over the PIP joint. No underlying fracture or radiopaque foreign body identified. Mild narrowing of the fourth and fifth PIP joints. No sclerotic or destructive changes observed. SOFT TISSUES: Unremarkable. No soft tissue swelling or gas. No radiopaque foreign body. RAD/Hand Min 3 Views IMPRESSION: 1. No fracture or foreign body identified. 2. Suspected bone demineralization for age. Electronically Signed: Sandra Mooney MD at 22:31 EDT ,
[2022-08-16] MEDS: Amox/Clavulanate 875 MG Tablet PO (22:07)
[2022-08-16] MEDS: Diphth,Pertuss(Acell),Tet Vac 0.5 ML Vial IM (22:07)
== END 2022-08-16 23:55 | disposition home or self-care (01) ==
PROVIDERS: Emergency Provider Emergency Medicine; Visit Provider Emergency Medicine
DX: S61.451A Open bite of right hand, initial encounter (principal); Z87.891 Personal history of nicotine dependence; W54.0XXA Bitten by dog, initial encounter
CPT/HCPCS: 73130; 90715; 99283

== ENCOUNTER → 2023-01-18 | Outpatient (CLI) | payer MEDICARE, MEDICAID, SELFPAY ==
[2023-01-18 16:08] LABS: ALB/GLOB Ratio 0.7 RATIO (0.9-2.4); AST(SGOT) 12 U/L (15-37); Alanine Aminotransfer ALT/SGPT 9 U/L (13-56); Albumin, Serum 2.8 g/dL (3.2-5.0); Alkaline Phosphatase 64 U/L (45-117); Anion Gap 3 (5-15); BUN 20 mg/dL (7-18); BUN/Creat Ratio 25.4 RATIO (10-20); Calcium,Total 8.6 mg/dL (8.5-10.1); Chloride 104 mmol/L (98-107); Creatinine, Serum 0.79 mg/dL (0.55-1.02); EST Glomerular Filtration Rate 78 mL/min (>60); Est Glom Filt Rate - Afr Amer 95 mL/min (>60); Globulin 4.2 g/dL (2.2-4.2); Glucose 115 mg/dL (74-106); Potassium 4.3 mmol/L (3.5-5.1); Sodium Level 138 mmol/L (136-145)
== END | disposition home or self-care (01) ==
PROVIDERS: Referring Provider Psychiatry & Neurology Neurology; Visit Provider Psychiatry & Neurology Neurology
DX: G40.109 Localization-related (focal) (partial) symptomatic epilepsy and epileptic syndromes with simple partial seizures, not intractable, without status epilepticus (principal)
CPT/HCPCS: 36415; 80053

== ENCOUNTER → 2023-01-25 | Outpatient (CLI) | payer MEDICARE, MEDICAID, SELFPAY ==
[2023-01-25 15:03] LABS: Absolute Neutrophil Count 7.9 X10^3/uL (2.0-7.7); Basophil# 0.04 X10^3/uL; Basophil% 0.4 % (0-1); Eosinophil# 0.08 X10^3/uL; Eosinophils% 0.7 % (0-5); Hematocrit 30.6 % (37-47); Hemoglobin 9.6 g/dL (12.0-15.0); Lymphocyte % 18.2 % (19-41); Mean Corp Hgb Conc 31.4 g/dL (32-36); Mean Corpuscular Hgb 29.6 pg (27.0-32.0); Mean Corpuscular Volume 94.4 fL (81-99); Mean Platelet Vol. 9.5 fl (6.2-12.0); Monocyte% 8.2 % (0-10); NRBC Flagged by Analyzer 0 % (0-5); Neutrophil # 7.89 X10^3/uL (2.7-7.7); Platelet Count 216 K/mm3 (150-450); RBC Distribution Width CV 12.6 % (11.6-14.6); Red Blood Count 3.24 M/mm3 (4.2-5.4)
[2023-01-25 15:46] LABS: Valproic Acid (Depakene) Level 103 ug/mL (50-100)
== END | disposition home or self-care (01) ==
LOC: LAB 14:43
PROVIDERS: Referring Provider Psychiatry & Neurology Neurology; Visit Provider Psychiatry & Neurology Neurology
DX: G40.109 Localization-related (focal) (partial) symptomatic epilepsy and epileptic syndromes with simple partial seizures, not intractable, without status epilepticus (principal)
CPT/HCPCS: 36415; 80164; 85025

== ENCOUNTER 2023-08-24 09:27 | Inpatient (IN) | payer MEDICARE, MEDICAID, SELFPAY ==
[2023-08-24] VITALS (10 sets, daily range): BP systolic 75–117; BP diastolic 46–93; PULSE 77–104; RESP 12–18; TEMP 35.6–37.1; O2SAT 95–100; BMI 18.3; BMI 16.0
--- NOTE | 2023-08-24 10:16 | EKG12_ITS ---
Test Reason : WEAKNESS Blood Pressure : / mmHG Vent. Rate : 088 BPM Atrial Rate : 088 BPM P-R Int : 116 ms QRS Dur : 076 ms QT Int : 382 ms P-R-T Axes : 080 063 077 degrees QTc Int : 462 ms Normal sinus rhythm Normal ECG Confirmed by Iggy Mora ([id number]), business editor JED FAN ([id number]) on 08/28/2023 6:59:32 AM Referred By: Confirmed By:Iggy Mora
--- NOTE | 2023-08-24 10:16 | CT_ITS ---
STUDY: CT BRAIN WITHOUT CONTRAST REASON FOR EXAM: Female, 63 years old. Weakness and confusion. RADIATION DOSAGE (If Supplied By Facility): CTDIvol = ( 44.99 ) mGy, DLP = ( 796.11 ) mGycm TECHNIQUE: Transaxial CT imaging of the brain was performed without administration of intravenous contrast material. Individualized dose optimization techniques were used for this CT. COMPARISON: Comparison is made with prior MRI of the brain dated November 17, 2014. FINDINGS: Normal soft tissue structures. Normal calvarium. There is mild cerebral atrophy with widening of the extra-axial spaces and ventricular dilatation. Normal white matter tracts of the cerebral hemispheres. Normal basal ganglia and thalami. Normal brainstem. Normal cerebellum. There is no intracranial hemorrhage. There are no findings of an acute ischemic infarction. Normal visualized paranasal sinuses. CT/Brain/Head without Contrast IMPRESSION: Chronic involutional changes of the brain. Electronically Signed: Nael Thomas MD at 10:55 EDT ,
--- NOTE | 2023-08-24 10:18 | EDS_ITS ---
HPI History of Present Illness Chief Complaint: Weakness Informant: patient Narrative Narrative: Patient presents secondary to generalized weakness and confusion. She has a history of seizures and reports having 2 seizures on the fourth and 2 seizures on the sixth. She had a video appointment with her neurologist following this and her Depakote was increased. She states overall she just feels weak and with intermittent confusion and weakness. She feels like she never fully recovered after her last seizure. She admits that she has not been eating and drinking much. She has been urinating frequently but has no dysuria. [facility] Medical History Marijuana abuse ETOH abuse IBS (irritable bowel syndrome) Anxiety Depression Seizure Home Medications ?Medication ?Instructions ?Recorded ?Last Taken ?Type magnesium oxide 500 mg capsule 250 mg PO TID supplement 06/11/18 Unknown History buspirone 7.5 mg tablet 7.5 mg PO PRN PRN Anxiety 10/10/19 Unknown History clonazepam 0.25 mg disintegrating 0.25 mg PO PRN PRN Seizures 10/10/19 Unknown History tablet ascorbic acid (vitamin C) 500 mg 500 mg PO DAILY 07/23/20 Unknown History chewable tablet (Vitamin C) ferrous sulfate 325 mg (65 mg 325 mg PO DAILY 07/23/20 Unknown History iron) tablet fluoxetine 20 mg capsule 20 mg PO DAILY 07/23/20 Unknown History divalproex 250 mg tablet,extended 250 mg PO DAILY seizures 07/24/20 Unknown History release 24 hr (Depakote ER) divalproex 250 mg tablet,extended 500 mg PO QHS seizures 07/24/20 Unknown History release 24 hr (Depakote ER) amoxicillin 875 mg-potassium 1 tab PO BID #14 tabs 08/16/22 Unknown Rx clavulanate 125 mg tablet Allergy/AdvReac Type Severity Reaction Status Date / Time erythromycin base Allergy TONGUE Verified 08/24/23 09:28 PEELS Family History Sister Melanoma Father Prostate CA Surgical History Shoulder joint replacement status Social History Smoking Status: Former smoker substance use type: marijuana ROS ROS ED Constitutional Constitutional ED: Denies chills or fever(s) Eyes Eyes: Denies change in vision or discharge from eye(s) ENT ENT ED: Denies discharge from eye(s), rhinorrhea or sore throat Cardiovascular Cardiovascular: Denies chest pain or palpitations Respiratory/Chest Respiratory/Chest: Denies cough or dyspnea Gastrointestinal Gastrointestinal: Denies abdominal pain, nausea or vomiting Genitourinary Genitourinary ED: Reports urinary frequency; Denies dysuria Musculoskeletal Musculoskeletal: Denies back pain or extremity pain Integumentary Denies Abrasions or rash Neurologic Neurologic: Reports weakness; Denies headache(s) Allergic/Immunologic Allergic/Immunologic ED: Denies lip swelling or urticaria EXAM Physical Exam Const Vital Signs: 08/24/23 09:27 08/24/23 09:27 08/24/23 10:30 Temperature 96.2 F L Temperature Source Temporal Pulse Rate 103 H 104 H Respiratory Rate 12 14 Respiratory Effort Normal Non-Labored Respiratory Pattern Normal Blood Pressure 101/73 86/69 L Blood Pressure Mean 82 74 Pulse Ox 100 98 Oxygen Delivery Method Room Air Room Air Positive well nourished and well developed General Appearance ED: well developed HEENT Reports dry mucous membranes Mouth ED: Yes dry mucous membranes Mouth: dry mucous membranes Eyes EOMs intact bilaterally Chest Wall inspection of chest normal and palpation of chest normal Resp normal respiratory effort and clear to auscultation bilaterally Cardio regular rate and regular rhythm GI non-tender Palpation: soft Extremity normal to inspection Neuro oriented x3 and no sensory deficits noted Neuro Narrative: NIH equals 0 Motor Exam: strength 5/5 throughout Psych mental status grossly normal Skin no rashes or lesions noted MDM MDM MDM Narrative Medical decision making narrative: Patient placed on phototypesetting equipment monitor. EKG obtained to evaluate for cardiac arrhythmia/ischemia. IV line initiated. Patient's most recent blood pressure is 86/69 on receiving normal saline bolus followed by saline at 150 an hour. Labwork obtained to evaluate for leukocytosis, anemia, and electrolyte derangement. Urinalysis obtained to evaluate for infection/hematuria. CT scan of the head will be obtained to evaluate for intracranial bleed or edema. Depakote level will also be checked as this was recently changed. History & Record Review Discussion w/independent historian: Patient and Friend Additional record(s) reviewed:: Prior labs Lab Data Attestation: I reviewed the patient's lab results. Labs: Laboratory Results - last 24 hr 08/24/23 08/24/23 10:05 10:50 WBC 10.8 RBC 3.47 L Hgb 10.3 L Hct 32.1 L MCV 92.5 MCH 29.7 MCHC 32.1 RDW Std Deviation 41.9 RDW Coeff of Yury 12.4 Plt Count 169 MPV 10.1 Immature Gran % (Auto) 0.600 Neut % (Auto) 83.3 H Lymph % (Auto) 6.5 L [place] % (Auto) 9.2 Eos % (Auto) 0.0 Baso % (Auto) 0.4 Absolute Neuts (auto) 9.0 H Absolute Lymphs (auto) 0.70 L Nucleated RBC % 0 Sodium 133 L Potassium 2.7 L* Chloride 95 L Carbon Dioxide 24.0 Anion Gap 14 BUN 19 H Creatinine 0.80 Est GFR (MDRD) Af Amer 92 Est GFR (MDRD) Non-Af 76 BUN/Creatinine Ratio 23.6 H Glucose 96 Calcium 8.6 Total Bilirubin 0.30 Direct Bilirubin 0.13 AST 13 L ALT 7 L Alkaline Phosphatase 62 Troponin I High Sens 10 Total Protein 7.2 Albumin 2.1 L Globulin 5.1 H Urine Color Yellow Urine Clarity Clear Urine pH 6.0 Ur Specific [place] 1.010 Urine Protein 30 H Urine Glucose (UA) Normal Urine Ketones 150 A* Urine Occult Blood 150 H Urine Nitrite Negative Urine Bilirubin 3 H Urine Urobilinogen 4 H Ur Leukocyte Esterase 100 H Urine RBC 0-5 SEEN Urine WBC 0-5 SEEN Ur Squamous Epith Cells 0 SEEN Urine Bacteria 0 SEEN Urine Mucus 0 SEEN Valproic Acid 145 H Radiography Diagnostic Testing: Clinical Impression(s) from Imaging Studies Brain CT 08/24/23 10:16 IMPRESSION: Chronic involutional changes of the brain. Electronically Signed: Nael Thomas MD at 10:55 EDT , EKG Initial EKG: Attestation: I personally reviewed and interpreted this EKG as follows: Interpretation: Sinus Rhythm (Sinus 88 with no acute ischemia.) Treatment and Re-Evaluation :: CBC was normal white count at 10.8 with a hemoglobin of 10.3. 83% neutrophils noted. Chemistry studies significant for potassium of 2.7. This is replaced with IV potassium. Sodium is slightly low at 133 with a chloride of 95. BUN is slightly elevated at 19 but creatinine remains normal at 0.8. LFTs are unremarkable. Troponin is normal at 10. Urinalysis reveals evidence of ketones but no evidence of acute infection. Valproic acid level is supratherapeutic at 145. EKG is sinus rhythm with no evidence of ischemia. CT scan of the head reveals chronic involutional changes with no acute findings. With 500 cc of IV fluids, patient's blood pressure is currently 77/54. 1 L normal saline bolus will be obtained. Patient is alert and appropriate. She states her blood pressure normally runs low with her systolic being right around 100. I will speak with hospitalist regarding admission. Discharge Plan Triage Chief Complaint: Weakness ED Provider: Shanice Swann Dx/Rx/DC Orders Clinical Impression: Valproic acid toxicity, Hypokalemia, Weakness, Hypotension Prescriptions: No Action magnesium oxide 500 MG capsule 250 mg PO TID buspirone 7.5 MG tablet 7.5 mg PO PRN PRN (Reason: Anxiety) clonazepam 0.25 MG tablet,disintegrating 0.25 mg PO PRN PRN (Reason: Seizures) ferrous sulfate 325 mg (65 mg iron) Tablet 325 mg PO DAILY ascorbic acid (vitamin C) [Vitamin C] 500 mg Tablet,Chewable 500 mg PO DAILY fluoxetine 20 mg Capsule 20 mg PO DAILY divalproex [Depakote ER] 250 mg tablet extended release 24 hr 500 mg PO QHS Patient Comments: Take 1 tab (250mg) at bedtime for 7 days. Then take 2 tabs (500mg) at bedtime for 7 days. Then take 1 tab (250mg) in the morning and 2 tabs divalproex [Depakote ER] 250 mg tablet extended release 24 hr 250 mg PO DAILY Patient Comments: Take 1 tab (250mg) at bedtime for 7 days. Then take 2 tabs (500mg) at bedtime for 7 days. Then take 1 tab (250mg) in the morning and 2 tabs amoxicillin-pot clavulanate 875-125 mg tablet 1 tab PO BID Qty: 14 0RF Primary Care Provider: [facility] Sarah Sosa Referrals: [facility] [Primary Care Provider] - Print Language: Latvian Disposition Disposition: Acute Care Hospital [facility]
[2023-08-24] MEDS: 0.9% Normal Saline (500mL Bag) 500 ML 1000 ML IV (10:26)
[2023-08-24 10:28] LABS: Basophil# 0.04 X10^3/uL; Basophil% 0.4 % (0-1); Hematocrit 32.1 % (37-47); Hemoglobin 10.3 g/dL (12.0-15.0); Lymphocyte % 6.5 % (19-41); Mean Corp Hgb Conc 32.1 g/dL (32-36); Mean Corpuscular Hgb 29.7 pg (27.0-32.0); Mean Corpuscular Volume 92.5 fL (81-99); Mean Platelet Vol. 10.1 fl (6.2-12.0); Monocyte# 0.99 X10^3/uL; Monocyte% 9.2 % (0-10); NRBC Flagged by Analyzer 0 % (0-5); Neutrophil # 8.97 X10^3/uL (2.7-7.7); Neutrophil % 83.3 % (47-70); Platelet Count 169 K/mm3 (150-450); RBC Distribution Width CV 12.4 % (11.6-14.6); RBC Distribution Width SD 41.9 fl (35.1-43.9); Red Blood Count 3.47 M/mm3 (4.2-5.4); White Blood Count 10.8 K/mm3 (4.4-11.0)
[2023-08-24 11:00] LABS: Bacteria 0 SEEN /hpf (None Seen); Mucous, Urine 0 SEEN /hpf (<or=2+); Squamous Epithelial Cells - UA 0 SEEN /hpf (5-10)
[2023-08-24 11:01] LABS: Valproic Acid (Depakene) Level 145 ug/mL (50-100)
[2023-08-24 11:03] LABS: AST(SGOT) 13 U/L (15-37); Alanine Aminotransfer ALT/SGPT 7 U/L (13-56); Albumin, Serum 2.1 g/dL (3.2-5.0); Alkaline Phosphatase 62 U/L (45-117); Anion Gap 14 (5-15); BUN 19 mg/dL (7-18); BUN/Creat Ratio 23.6 RATIO (10-20); Bilirubin, Direct 0.13 mg/dL (0.00-0.30); Calcium,Total 8.6 mg/dL (8.5-10.1); Chloride 95 mmol/L (98-107); EST Glomerular Filtration Rate 76 mL/min (>60); Est Glom Filt Rate - Afr Amer 92 mL/min (>60); Globulin 5.1 g/dL (2.2-4.2); Glucose 96 mg/dL (74-106); Potassium 2.7 mmol/L (3.5-5.1); Protein, Total 7.2 g/dL (6.4-8.2); Sodium Level 133 mmol/L (136-145); Troponin-I HS 10 pg/mL (3.0-54.0)
[2023-08-24 11:04] LABS: Color, Urine Yellow (Yellow); Glucose, Dipstick Normal (Normal); Leukocyte Esterase-Dipstick 100 /ul (Negative); Nitrite-Dipstick Negative (Negative); Occult Blood-Urine 150 /ul (Negative); Protein-Dipstick 30 mg/dl (Negative); Urine Clarity Clear (Clear); Urine Urobilinogen 4 mg/dl (Normal)
[2023-08-24 11:08] LABS: Ketone-Dipstick 150 mg/dl (Negative); Urine Bilirubin Dipstick 3 mg/dL (Negative)
[2023-08-24 11:11] LABS: Red Blood Cells-Urine 0-5 SEEN /hpf (0-5); White Blood Cells 0-5 SEEN /hpf (0-5)
[2023-08-24] MEDS: 0.9% Normal Saline (1000mL) 1,000 ML 150 ML IV ×3 (11:34→21:37)
[2023-08-24] MEDS: Potassium Chloride 10mEq/100mL 10 MEQ/100 ML IV.SOLN. 100 MEQ IV BOLUS ×4 (11:34→14:51)
--- NOTE | 2023-08-24 12:26 | HP.PCM.HOS_ITS ---
HPI - General General Date of Admission: 08/24/23 Date of Service: 08/24/23 Chief Complaint: Weakness HPI Narrative MICK KOCH, is a 63 F who presented to the emergency department at [facility] on 08/24/2023 due to weakness. Patient reported that in early July she was having increased seizures and called her neurologist, Maci Reid, at [facility] and she instructed her to increase her Depakote dosing from 750 mg p.o. twice daily to 1000 mg p.o. twice daily. She states she has not had any seizures since that point in time but since about a week after the dose increase she has gotten progressively weaker with intermittent nausea, decreased appetite, shakiness and intermittent altered mental status. Her friend who is at the bedside has reported that its gotten progressively worse since that point in time. She has a history of alcohol abuse but denies any use in the last 3 years and states she has been sober since 2020. She states she is felt so poorly yesterday she had to come home from work. She is complaining of some intermittent loose stools predominantly in the morning. Denies significant voluminous diarrhea. She states I just do not feel right. Vital signs the emergency department showed a temperature of 96.2, heart rate 104, blood pressure 86/69, respiratory rate is 14 oxygen saturations are 98% on room air. Her CBC showed a normal white count with a mild anemia having a hemoglobin of 10.3. Chemistry panel showed hyponatremia with a sodium of 133, hypokalemia with a potassium of 2.7, bicarb and anion gap were within normal limits, BUN was 19 and serum creatinine was 0.8. With her weight and lean body mass I suspect this is significantly elevated compared to what her baseline should be. Glucose was normal. Liver functions unremarkable. Troponin was 10. Total albumin is 2.1. Her UA was not consistent with infection. CT of the brain was unremarkable for any acute findings. Valproic acid level was drawn and found to be markedly elevated at 145. She was treated with IV fluids in the emergency department however her blood pressure still remains borderline and with her marked hypokalemia and symptoms of Depakote toxicity request for admission was made. [facility] Medical History Alcohol dependence Marijuana abuse ETOH abuse IBS (irritable bowel syndrome) Anxiety Depression Seizure Home Medications ?Medication ?Instructions ?Recorded ?Last Taken ?Type clonazepam 0.25 mg disintegrating 0.25 mg PO PRN PRN Seizures 10/10/19 Unknown History tablet divalproex 250 mg tablet,extended 1,000 mg PO BID seizures 07/24/20 Unknown History release 24 hr (Depakote ER) Allergy/AdvReac Type Severity Reaction Status Date / Time erythromycin base Allergy TONGUE Verified 08/24/23 09:28 PEELS Family History Sister Melanoma Father Prostate CA Surgical History Status post total shoulder replacement Shoulder joint replacement status Social History (Updated 08/24/23 @ 12:[address] Tania Bajwa DO) household members: none housing: apartment Smoking Status: Former smoker alcohol intake: former year quit: 2020 substance use type: marijuana ROS Constitutional Constitutional: Reports anorexia, fatigue and weakness; Denies change in weight, chills, fever(s), malaise, night sweats or other Eyes Eyes: Denies blurry vision, change in eye color, change in vision, discharge from eye(s), double vision, erythema, eye pain, loss of vision or other ENT HEENT: Denies abnormal hearing, dysphagia, ear pain, epistaxis, headache(s), hearing loss, nasal congestion, nasal discharge, post nasal drip, sinus pressure, sore throat or other Cardiovascular Cardiovascular: Denies chest pain, claudication, dyspnea on exertion, edema, lightheadedness, orthopnea, palpitations, paroxysmal nocturnal dyspnea, rapid heart rate, syncope or other Respiratory/Chest Respiratory/Chest: Denies cough, dyspnea, excessive phlegm production, hemoptysis, productive cough, shortness of breath at rest, shortness of breath with exertion, wheezing or other Gastrointestinal Gastrointestinal: Reports loose stools, nausea and other Details: Decreased appetite ; Denies abdominal pain, coffee ground emesis, constipation, diarrhea, dyspepsia, hematemesis, hematochezia, melena or vomiting Genitourinary Genitourinary: Denies burning urination, difficulty urinating, dysuria, hematuria, nocturia, urinary frequency, urinary hesitancy, urinary incontinence, urinary urgency or other Musculoskeletal Musculoskeletal: Denies arthralgias, back pain, joint pain, joint stiffness, joint swelling, myalgias, neck pain or other Neurologic Neurologic: Reports abnormal gait, confusion, disequilibrium and seizures; Denies abnormal speech, dizziness, focal weakness, headache(s), numbness, paresthesias, seizure-like activity, syncope, tingling, tremor(s) or other Psychiatric Psychiatric: Reports anxiety and depression; Denies homicidal ideation, suicidal ideation or other Endocrine Endocrinology: Denies change in body appearance, cold intolerance, excessive sweating, heat intolerance, polydipsia, polyuria or other Hematologic/Lymphatic Hematologic/Lymphatic: Denies anemia, easy bleeding, easy bruising, lymphadenopathy or other Allergic/Immunologic Allergic/Immunologic: Denies rhinitis, hives, eczemia, asthma or other Vital Signs Vital Signs Vital Signs: 08/24/23 09:27 08/24/23 09:27 08/24/23 10:30 Temperature 96.2 F L Temperature Source Temporal Pulse Rate 103 H 104 H Respiratory Rate 12 14 Respiratory Effort Normal Non-Labored Respiratory Pattern Normal Blood Pressure 101/73 86/69 L Blood Pressure Mean 82 74 Pulse Ox 100 98 Oxygen Delivery Method Room Air Room Air 08/24/23 11:27 Temperature Temperature Source Pulse Rate 77 Respiratory Rate 18 Respiratory Effort Respiratory Pattern Blood Pressure 86/58 L Blood Pressure Mean 67 Pulse Ox 98 Oxygen Delivery Method Room Air Weight Weight: 48.4 kg Body Mass Index (BMI) 18.3 Physical Exam Const alert, oriented x3 and no apparent distress; Negative for average body habitus, healthy appearing or well nourished Constitutional Narrative: Frail-appearing [facility] middle-aged, white female, sitting up in bed, friend at bedside, patient appears older than stated age, does not appear toxic, cachectic HEENT normocephalic, head/scalp atraumatic, hearing grossly normal bilaterally and moist oral mucous membranes HEENT Narrative: Dentition is fair for age, Mallampati is 1, no thrush, temporal wasting bilaterally Eyes PERRL, EOMs intact bilaterally and conjunctivae normal Eyes Narrative: No scleral icterus Neck no lymphadenopathy and supple Neck Narrative: Trachea midline, no thyroid enlargement Resp normal respiratory effort, no retractions, no use of accessory muscles and clear to auscultation bilaterally Resp Narrative: Diffusely diminished but clear Auscultation: Negative for rales, rhonchi or wheezes Cardio regular rate, regular rhythm, S1 normal heart sound, S2 normal heart sound, no murmurs, no rub, no gallops and no clicks GI normal to inspection, nondistended, normoactive bowel sounds, soft to palpation and non-tender GI Narrative: Scaphoid abdomen Extremity no clubbing, cyanosis or edema Extremity Narrative: Pedal pulses and radial pulses are 2+, markedly decreased lean muscle mass Skin no rashes or lesions noted, no wounds, skin turgor normal, no jaundice, no petechiae and no mottling Neuro oriented x3, CN's II-XII intact bilaterally, moves all extremities and no focal motor deficits Neuro Narrative: Generalized weakness noted with proximal musculature being weaker than distal but no focal deficits, fine tremor noted on exam Speech: speech normal Psych affect normal Psych Narrative: Eye contact is good, patient is very pleasant, interacts appropriately Results Lab / Micro Data 08/24/23 10:05 08/24/23 10:05 Labs: Laboratory Results - last 24 hr 08/24/23 10:05: WBC 10.8, RBC 3.47 L, Hgb 10.3 L, Hct 32.1 L, MCV 92.5, MCH 29.7, MCHC 32.1, RDW Std Deviation 41.9, RDW Coeff of Yury 12.4, Plt Count 169, MPV 10.1, Immature Gran % (Auto) 0.600, Neut % (Auto) 83.3 H, Lymph % (Auto) 6.5 L, [place] % (Auto) 9.2, Eos % (Auto) 0.0, Baso % (Auto) 0.4, Absolute Neuts (auto) 9.0 H, Absolute Lymphs (auto) 0.70 L, Nucleated RBC % 0, Sodium 133 L, Potassium 2.7 L*, Chloride 95 L, Carbon Dioxide 24.0, Anion Gap 14, BUN 19 H, Creatinine 0.80, Est GFR (MDRD) Af Amer 92, Est GFR (MDRD) Non-Af 76, BUN/Creatinine Ratio 23.6 H, Glucose 96, Calcium 8.6, Total Bilirubin 0.30, Direct Bilirubin 0.13, A ST 13 L, ALT 7 L, Alkaline Phosphatase 62, Troponin I High Sens 10, Total Protein 7.2, Albumin 2.1 L, Globulin 5.1 H, Valproic Acid 145 H 08/24/23 10:50: Urine Color Yellow, Urine Clarity Clear, Urine pH 6.0, Ur Specific [place] 1.010, Urine Protein 30 H, Urine Glucose (UA) Normal, Urine Ketones 150 A*, Urine Occult Blood 150 H, Urine Nitrite Negative, Urine Bilirubin 3 H, Urine Urobilinogen 4 H, Ur Leukocyte Esterase 100 H, Urine RBC 0- 5 SEEN, Urine WBC 0-5 SEEN, Ur Squamous Epith Cells 0 SEEN, Urine Bacteria 0 SEEN, Urine Mucus 0 SEEN Imaging Radiology Impression Brain CT 08/24/23 10:16 IMPRESSION: Chronic involutional changes of the brain. Electronically Signed: Nael Thomas MD at 10:55 EDT , Assessment & Plan Assessment/Plan (1) Hypotension: (2) Weakness: (3) Hypokalemia: (4) Valproic acid toxicity: (5) Seizure disorder: (6) Severe malnutrition: (7) Dehydration: (8) Anemia: (9) Hyponatremia: PLAN: Plan Acute hypotension -Patient does appear somewhat dry however she also has an elevated Depakote which can precipitate hypotension if toxic -Continue IV fluids at 150 cc/h for now -Continue to monitor blood pressures per vitals orders Severe hypokalemia -Potassium is 2.7 -Was given 40 IV in the emergency department -Will give 60 p.o. -Check magnesium level and replace if low -Repeat lab potassium level this evening and will reevaluate need for more potassium at that time -Check a.m. BMP Suspected Depakote toxicity -Patient was having increased frequency of seizures and talk to her neurologist in [place] (Maci Reid)--> they increased her Depakote from 750 twice daily 1000 twice daily -Depakote level on presentation was 145 with symptoms consistent with toxicity including hypotension, gait abnormalities, tremor, nausea, drowsiness and some intermittent confusion -Patient is markedly hypoalbuminemic at baseline which may precipitate toxicity as her albumin level is 2.1 -Hold Depakote -Consult neurology Hyponatremia -Likely related to volume status and suspect hypovolemic hyponatremia -Volume repletion -Repeat lab in a.m. -Hyponatremia is only mild Generalized weakness -Suspect secondary to Depakote toxicity -Will have PT and OT evaluate the patient while here -Case management and social work consulted for assistance with discharge planning Seizure disorder -Diagnosed in 2016 -Dose was recently increased from 750 twice daily to thousand twice daily due to increased seizure activity in early July -Last seizure was just prior to July 28 -Etiology was never ascertained -Has been on Depakote ER 1000 mg p.o. twice daily -Level markedly elevated with symptoms consistent with toxicity -Patient is markedly hypoalbuminemic as well -Hold Depakote -Check EEG--> Spot -Start Vimpat 100 mg p.o. twice daily -Patient has been on Keppra previously and did not tolerate the medication -Seizure precautions -Neurology consultation Suspected severe malnutrition -Start supplements -Dietitian consultation Anemia -Hemoglobin is 10.3 and current baseline is unknown -Will monitor -If stable will recommend outpatient workup after discharge History of alcohol abuse -Patient's been sober for 3 years now History of anxiety and depression Patient not currently on any medication for this DVT prophylaxis -Due to weight will utilize 30 mg of Lovenox daily CODE STATUS -Full code is verified and the emergency department at the time of admission
[2023-08-24 13:50] LABS: Magnesium 1.9 mg/dL (1.6-2.6)
[2023-08-24] MEDS: Ensure Plus High Protein 120 ML LIQUID PO (14:42)
[2023-08-24] MEDS: Potassium Chloride Oral Tablet 20 MEQ 60 MEQ PO (14:42)
[2023-08-24] MEDS: Lacosamide 100 MG Tablet PO (14:49)
[2023-08-24] MEDS: 0.9% Normal Saline (250mL Bag) 250 ML 15 ML IV (14:51)
--- NOTE | 2023-08-24 15:49 | CASEMGMT ---
SW met with patient to discuss SDOH concerns. SW introduced self and role at [facility]. SW had read in patient's chart that she commented she has been sober for 3 years. Patient stated she was worried that if she keeps missing work she will lose her job and then she won't have money to pay her bills. SW provided patient with resources and patient was appreciative. SW asked patient about her sobriety. Patient stated it has been 3 years. SW congratulated patient and commended her for her hard work. Patient was tearful. Patient states she does have a good support system. While DOM was in the room a volunteer delivered shipman. Patient read the card and was happy to see it was her crew from work that had sent her the shipman. SW told patient if she feels like she needs to talk with SW she is more than welcome to ask for SW. Patient thanked DOM for checking in with her. Lluvia Michael ART MANAGER EVIE
[2023-08-24 16:09] LABS: Potassium 3.3 mmol/L (3.5-5.1)
[2023-08-24] MEDS: Potassium Chloride Oral Tablet 20 MEQ 40 MEQ PO (16:30)
--- NOTE | 2023-08-24 17:40 | NURSING ---
This RN taking over care of pt at this time.
--- NOTE | 2023-08-24 20:30 | PCM.HOSP.N ---
Hospitalist Note Patient with low blood pressure 75/48, will administer 1 L normal saline bolus and continue closely monitor.
[2023-08-24] MEDS: 0.9% Normal Saline (1000mL) 1,000 ML 999 ML IV (20:35)
[2023-08-24] MEDS: 0.9% Normal Saline (500mL Bag) 500 ML 999 ML IV (23:40)
[2023-08-25] VITALS (19 sets, daily range): BP systolic 73–117; BP diastolic 50–72; PULSE 60–90; RESP 16–28; TEMP 36.1–36.8; O2SAT 92–100; BMI 16.1
[2023-08-25] MEDS: Midodrine HCl 5 MG Tablet 10 MG PO ×4 (00:52→16:26)
[2023-08-25] MEDS: 0.9% Normal Saline (1000mL) 1,000 ML 150 ML IV ×2 (04:37→07:52)
[2023-08-25] MEDS: 0.9% Normal Saline (500mL Bag) 500 ML 999 ML IV (05:04)
--- NOTE | 2023-08-25 05:54 | NURSING ---
This RN called report to REAL Clement in the ICU. Will now transfer pt.
[2023-08-25 06:17] LABS: Absolute Lymphocyte Count 1.32 X10^3/uL (0.83-4.51); Absolute Neutrophil Count 6.2 X10^3/uL (2.0-7.7); Basophil# 0.04 X10^3/uL; Basophil% 0.4 % (0-1); Eosinophil# 0.04 X10^3/uL; Eosinophils% 0.4 % (0-5); Hematocrit 24.8 % (37-47); Hemoglobin 7.6 g/dL (12.0-15.0); Lymphocyte # 1.32 X10^3/ul (0.83-4.51); Lymphocyte % 14.2 % (19-41); Mean Corp Hgb Conc 30.6 g/dL (32-36); Mean Corpuscular Hgb 29.5 pg (27.0-32.0); Mean Corpuscular Volume 96.1 fL (81-99); Mean Platelet Vol. 9.9 fl (6.2-12.0); Monocyte# 1.66 X10^3/uL; Monocyte% 17.9 % (0-10); NRBC Flagged by Analyzer 0 % (0-5); Neutrophil # 6.16 X10^3/uL (2.7-7.7); Neutrophil % 66.5 % (47-70); POSITIVE DIFFERENTIAL YES; Platelet Count 120 K/mm3 (150-450); RBC Distribution Width CV 12.9 % (11.6-14.6); RBC Distribution Width SD 44.9 fl (35.1-43.9); Red Blood Count 2.58 M/mm3 (4.2-5.4); White Blood Count 9.3 K/mm3 (4.4-11.0)
[2023-08-25 06:22] LABS: Differential Indicated SCAN CRITERIA MET
--- NOTE | 2023-08-25 06:38 | NURSING ---
Pt friend/contact Calli called for the update on transferring to ICU at this time.
[2023-08-25 06:52] LABS: Valproic Acid (Depakene) Level 52 ug/mL (50-100)
[2023-08-25 07:10] LABS: ALB/GLOB Ratio 0.4 RATIO (0.9-2.4); AST(SGOT) 12 U/L (15-37); Alanine Aminotransfer ALT/SGPT < 6 U/L (13-56); Albumin, Serum 1.4 g/dL (3.2-5.0); Alkaline Phosphatase 39 U/L (45-117); Anion Gap 1 (5-15); BUN 10 mg/dL (7-18); BUN/Creat Ratio 21.2 RATIO (10-20); Calcium,Total 6.9 mg/dL (8.5-10.1); Chloride 116 mmol/L (98-107); Creatinine, Serum 0.47 mg/dL (0.55-1.02); EST Glomerular Filtration Rate 141 mL/min (>60); Est Glom Filt Rate - Afr Amer 170 mL/min (>60); Estimated Creatinine Clearance 81.32 ml/min; Globulin 3.3 g/dL (2.2-4.2); Glucose 100 mg/dL (74-106); Magnesium 1.5 mg/dL (1.6-2.6); Phosphorus 1.6 mg/dL (2.5-4.9); Potassium 4.6 mmol/L (3.5-5.1); Protein, Total 4.7 g/dL (6.4-8.2); Sodium Level 139 mmol/L (136-145); Thyroid Stim Hormone (TSH) 5.94 uIU/mL (0.358-3.74)
[2023-08-25 07:14] LABS: Differential Comment SCANNED
--- NOTE | 2023-08-25 07:22 | EX.PCM.CONCC ---
Assessment & Plan Assessment/Plan (1) Hypotension: (2) Valproic acid toxicity: (3) Seizure disorder: PLAN: Plan RECOMMENDATIONS: 1. Send type and screen. Transfuse if hemoglobin drops below 7 g/dL. 2. Await EEG results and neurology evaluation. 3. Continue scheduled midodrine. 4. Gentle IV fluid hydration. 5. Aggressive electrolyte repletion. 6. PPI therapy as ordered. IMPRESSIONS: 1. Generalized weakness and hypotension I suspect that the patient's weakness and hypotension may be secondary to her presenting VPA toxicity. She does not appear to have any overt signs of a systemic infection. Her blood pressure appears to run on the low side at baseline. In addition, the patient's nutritional status is suboptimal. She has not required any vasopressor support and is maintaining appropriately. I agree with continuing current supportive measures including gentle IV fluid hydration. 2. Hypomagnesemia/hypophosphatemia Aggressive electrolyte repletion as ordered. 3. History of epilepsy Continue Vimpat for now with neurology consultation pending. 4. Anemia Continue to monitor blood counts for now. Transfuse if hemoglobin drops below 7 g/dL. Check stool for occult blood and initiate PPI therapy as ordered. 5. Protein calorie malnutrition/history of alcohol dependency/depression/anxiety Complicates care, management, recovery and prognosis. Nutrition services to evaluate the patient. Continue supportive care as noted above. This note was generated with [employer] dictation software. It may contain incorrect words, spelling, and punctuation that were not noted in checking the note before signing. HPI Consult Data Date of Consult: 08/25/23 HPI Narrative Reason for Consultation: Undifferentiated hypotension HPI Narrative: The patient is a 63-year-old female, with a history as outlined below, who presented to the emergency department on August 23 with generalized weakness. The patient has a known history of epilepsy and recently experienced increased seizure burden, for which her neurologist increased her Depakote dosing. Following this change in her medication regimen, the patient noted worsening weakness and altered mentation. She does have a history of prior alcohol dependency, but has been sober since 2020. Of note, the patient reported to me that her baseline blood pressures are typically in the 90s systolic. On presentation to the emergency department, the patient was documented to be afebrile but was hypotensive with a blood pressure of 86/58 mmHg. She was maintaining appropriate oxygen saturations on room air. Initial laboratory evaluation revealed a normal white blood cell count with a hemoglobin of 10.3 g/dL and normal platelet count. Chemistry profile was notable for a potassium of 2.7 and normal creatinine. VPA level was elevated at 145. Head CT revealed chronic involutional changes of the brain. Given concerns for Depakote toxicity, the patient was admitted to the hospital for further management. Overnight, the patient developed worsening hypotension, which persisted despite IV fluid resuscitation. An attempt was made to place the patient on midodrine, but the patient's hypotension persisted. Therefore, she was transferred to the medical intensive care unit. At the present time, the patient is mentating appropriately and answering questions. She has no specific complaints. Her hemoglobin did drop to 7.6 g/dL with a platelet count of 120,000. Her hypokalemia has resolved. Phosphorus is low at 1.6 with a magnesium of 1.5. [facility] Medical History Alcohol dependence Marijuana abuse ETOH abuse IBS (irritable bowel syndrome) Anxiety Depression Seizure Home Medications ?Medication ?Instructions ?Recorded ?Last Taken ?Type clonazepam 0.25 mg disintegrating 0.25 mg PO PRN PRN Seizures 10/10/19 Unknown History tablet divalproex 250 mg tablet,extended 1,000 mg PO BID seizures 07/24/20 Unknown History release 24 hr (Depakote ER) Allergy/AdvReac Type Severity Reaction Status Date / Time erythromycin base Allergy TONGUE Verified 08/24/23 09:28 HALIMA Family History Sister Melanoma Father Prostate CA Surgical History Status post total shoulder replacement Shoulder joint replacement status Social History (Updated 08/24/23 @ 12:[address] Tania Bajwa DO) household members: none housing: apartment Smoking Status: Former smoker alcohol intake: former year quit: 2020 substance use type: marijuana ROS ROS Narrative 10 systems were reviewed with pertinent positives as noted in HPI above. Physical Exam Const alert and no apparent distress Constitutional Narrative: Frail and cachectic in appearance. General Appearance: cooperative HEENT normocephalic and head/scalp atraumatic Eyes PERRL, EOMs intact bilaterally and conjunctivae normal Neck supple General: trachea midline Chest inspection of chest normal Resp Auscultation: diminished lung sounds; Negative for rales, rhonchi or wheezes Cardio regular rate and regular rhythm GI normal to inspection, nondistended, normoactive bowel sounds Extremity no clubbing, cyanosis or edema Skin no rashes or lesions noted Neuro CN's II-XII intact bilaterally and no focal motor deficits Psych cooperative and affect normal Lab / Micro Data 08/25/23 05:41 08/25/23 05:41 Labs: Laboratory Results - last 24 hr 08/24/23 10:05: WBC 10.8, RBC 3.47 L, Hgb 10.3 L, Hct 32.1 L, MCV 92.5, MCH 29.7, MCHC 32.1, RDW Std Deviation 41.9, RDW Coeff of Yury 12.4, Plt Count 169, MPV 10.1, Immature Gran % (Auto) 0.600, Neut % (Auto) 83.3 H, Lymph % (Auto) 6.5 L, [place] % (Auto) 9.2, Eos % (Auto) 0.0, Baso % (Auto) 0.4, Absolute Neuts (auto) 9.0 H, Absolute Lymphs (auto) 0.70 L, Nucleated RBC % 0, Sodium 133 L, Potassium 2.7 L*, Chloride 95 L, Carbon Dioxide 24.0, Anion Gap 14, BUN 19 H, Creatinine 0.80, Est GFR (MDRD) Af Amer 92, Est GFR (MDRD) Non-Af 76, BUN/Creatinine Ratio 23.6 H, Glucose 96, Calcium 8.6, Magnesium 1.9, Total Bilirubin 0.30, Direct Bilirubin 0.13, AST 13 L, ALT 7 L, Alkaline Phosphatase 62, Troponin I High Sens 10, Total Protein 7.2, Albumin 2.1 L, Globulin 5.1 H, Valproic Acid 145 H 08/24/23 10:50: Urine Color Yellow, Urine Clarity Clear, Urine pH 6.0, Ur Specific [place] 1.010, Urine Protein 30 H, Urine Glucose (UA) Normal, Urine Ketones 150 A*, Urine Occult Blood 150 H, Urine Nitrite Negative, Urine Bilirubin 3 H, Urine Urobilinogen 4 H, Ur Leukocyte Esterase 100 H, Urine RBC 0-5 SEEN, Urine WBC 0-5 SEEN, Ur Squamous Epith Cells 0 SEEN, Urine Bacteria 0 SEEN, Urine Mucus 0 SEEN 08/24/23 15:35: Potassium 3.3 L 08/25/23 05:41: WBC 9.3, RBC 2.58 L, Hgb 7.6 L, Hct 24.8 L, MCV 96.1, MCH 29.5, MCHC 30.6 L, RDW Std Deviation 44.9 H, RDW Coeff of Yury 12.9, Plt Count 120 L, MPV 9.9, Immature Gran % (Auto) 0.600, Neut % (Auto) 66.5, Lymph % (Auto) 14.2 L, [place] % (Auto) 17.9 H, Eos % (Auto) 0.4, Baso % (Auto) 0.4, Absolute Neuts (auto) 6.2, Absolute Lymphs (auto) 1.32, Nucleated RBC % 0, Differential Comment SCANNED, Sodium 139, Potassium 4.6, Chloride 116 H, Carbon Dioxide 22.0, Anion Gap 1 L, BUN 10, Creatinine 0.47 L, Estim Creat Clear Calc 81.32, Est GFR (MDRD) Af Amer 170, Est GFR (MDRD) Non-Af 141, BUN/Creatinine Ratio 21.2 H, Glucose 100, Calcium 6.9 L, Phosphorus 1.6 L, Magnesium 1.5 L, Total Bilirubin 0.10 L, AST 12 L, ALT < 6 L, Alkaline Phosphatase 39 L, Total Protein 4.7 L, Albumin 1.4 L, Globulin 3.3, Albumin/Globulin Ratio 0.4 L, TSH 5.94 H, Valproic Acid 52 Imaging Radiology Impression Brain CT 08/24/23 10:16 IMPRESSION: Chronic involutional changes of the brain. Electronically Signed: Nael Thomas MD at 10:55 EDT , Charges/Coding Visit Charges Inpatient E&M: 29223 Init Hosp L3
[2023-08-25 07:32] LABS: Lactic Acid 0.7 mmol/L (0.4-1.9)
[2023-08-25] MEDS: Magnesium Sulfate 2 GM in Dextrose 5%-Water (100mL Bag) 100 ML IV (07:51)
[2023-08-25 08:46] LABS: Procalcitonin 0.41 ng/mL (0.00-0.09)
[2023-08-25] MEDS: Ensure Plus High Protein 120 ML LIQUID PO ×2 (08:58→11:33)
[2023-08-25] MEDS: Enoxaparin 30 MG/0.3 ML Syringe SC (08:59)
[2023-08-25] MEDS: Lacosamide 100 MG Tablet PO (09:23)
--- NOTE | 2023-08-25 09:44 | CASEMGMT ---
Addendum entered by Jelani Stewart 08/25/23 10:14: Pt was recently seen by PT. This RN CM to pt room at this time and the pt still states that she feels safe discharging home with no additional needs and that she denies the need for HHC or OP therapy. Will continue to follow. Original Note: RN CM Assessment Face to Face with patient for initial transition planning/care coordination assessment. RN CM introduced self and role at [facility], pt voices understanding. Pt is A&Ox4 and is resting comfortably in bed and is calm.Pt friend at bedside (Calli). Care providers, pharmacy, and demographics verified. Admitting dx: Hypokalemia, Dehydration, Possible Depakote Toxicity LACE Strata: 1 PCP: Sarah Richard Specialists: [facility] Preferred Pharmacy: [facility] Insurance: [facility] A/B, [facility] Prescription Benefit: Yes LNOK: Calli Alfaro (Friend) Living Arrangements: Pt lives alone in a 2 story home with a BM with handrails throughout and 2 steps to enter ADLs/IADLs: States ind. PT eval is pending Transportation: Self. Pt states that she only drives shorter distances and that she has everything she needs within a short radius. Pt friend lives close. Pt grocery store and pharmacy are close. Pt also reports that her friend can drive her if needed. DME: Denies all DME uses or needs HHC/SNF: Denies history or needs Pt?s goal: Home Plan: Dr. Bajwa states there will be a Neuro consult done today and if neuro clears the pt the pt may DC home today. Pt states that she feels safe discharging home with no additional needs. Pt denies the need for HHC and OP therapy at this time. Will follow therapy recommendations once completed. CM to follow in regard to safe DC from [facility]. Son Stewart RN, CM
[2023-08-25] MEDS: Pantoprazole Sodium 40 MG in 0.9% Normal Saline (100mL MB+) 100 ML 330 MG IV (09:50)
[2023-08-25] MEDS: Sodium Phosphate/Na Biphos 40 MMOL in 0.9% Normal Saline (500mL Bag) 500 ML 62.5 MMOL IV (09:58)
[2023-08-25 11:58] LABS: Hemoglobin 8.2 g/dL (12.0-15.0)
[2023-08-25 12:46] LABS: T4 Free Direct 1.06 ng/dL (0.76-1.46)
--- NOTE | 2023-08-25 13:53 | CON.PCM.NE_ITS ---
Assessment and Plan: Neuro Assessment/Plan MICK KOCH is a 63 F with a past medical history of , being evaluated by Teleneurology for Diagnosis: Plan: Transfer to [facility] for the following reasons: I personally attended this patient and spent a total time of minutes evaluating this patient including clinical assessment, review of chart, medical history imaging, and determining appropriate treatment and workup. HPI Consult Data Date of Consult: 08/25/23 HPI Narrative HPI Narrative: MICK KOCH, is a 63 F who presents with With increasing seizures her outpatient epileptologist recommended she increase depakote. This did increase seizures but about a week after increase she began to experience increased weakness 63 F who presented to the emergency department at [facility] on 08/24/2023 due to weakness. Patient reported that in early July she was having increased seizures and called her neurologist, Maci Reid, at [facility] and she instructed her to increase her Depakote dosing from 750 mg p.o. twice daily to 1000 mg p.o. twice daily. She states she has not had any seizures since that point in time but since about a week after the dose increase she has gotten progressively weaker with intermittent nausea, decreased appetite, shakiness and intermittent altered mental status. Her friend who is at the bedside has reported that its gotten progressively worse since that point in time. She has a history of alcohol abuse but denies any use in the last 3 years and states she has been sober since 2020. She states she is felt so poorly yesterday she had to come home from work. She is complaining of some intermittent loose stools predominantly in the morning. Denies significant voluminous diarrhea. She states I just do not feel right. Vital signs the emergency department showed a temperature of 96.2, heart rate 104, blood pressure 86/69, respiratory rate is 14 oxygen saturations are 98% on room air. Her CBC showed a normal white count with a mild anemia having a hemoglobin of 10.3. Chemistry panel showed hyponatremia with a sodium of 133, hypokalemia with a potassium of 2.7, bicarb and anion gap were within normal limits, BUN was 19 and serum creatinine was 0.8. With her weight and lean body mass I suspect this is significantly elevated compared to what her baseline should be. Glucose was normal. Liver functions unremarkable. Troponin was 10. Total albumin is 2.1. Her UA was not consistent with infection. CT of the brain was unremarkable for any acute findings. Valproic acid level was drawn and found to be markedly elevated at 145. She was treated with IV fluids in the emergency department however her blood pressure still remains borderline and with her marked hypokalemia and symptoms of Depakote toxicity request for admission was made. [facility] Medical History Alcohol dependence Marijuana abuse ETOH abuse IBS (irritable bowel syndrome) Anxiety Depression Seizure Home Medications ?Medication ?Instructions ?Recorded ?Last Taken ?Type clonazepam 0.25 mg disintegrating 0.25 mg PO PRN PRN Seizures 10/10/19 Unknown History tablet divalproex 250 mg tablet,extended 1,000 mg PO BID seizures 07/24/20 Unknown History release 24 hr (Depakote ER) lacosamide 100 mg tablet 100 mg PO BID #60 tabs 08/25/23 Unknown Rx Allergy/AdvReac Type Severity Reaction Status Date / Time erythromycin base Allergy TONGUE Verified 08/24/23 09:28 HALIMA Family History Sister Melanoma Father Prostate CA Surgical History Status post total shoulder replacement Shoulder joint replacement status Social History (Updated 08/24/23 @ 12:[address] Tania Bajwa DO) household members: none housing: apartment Smoking Status: Former smoker alcohol intake: former year quit: 2020 substance use type: marijuana Vital Signs Vital Signs Vital Signs: 08/24/23 14:24 08/24/23 16:33 08/24/23 19:40 Temperature 96.0 F L Temperature Source Oral Pulse Rate 84 82 Pulse Strength Normal (2+) Respiratory Rate 18 Respiratory Effort Respiratory Depth Respiratory Pattern Blood Pressure 90/61 117/93 H Blood Pressure Mean 70 101 Blood Pressure Source Monitor Monitor Blood Pressure Position Supine Left Lateral Blood Pressure Location Right Arm Right Arm Pulse Ox 95 95 Oxygen Delivery Method Room Air Room Air 08/24/23 19:40 08/24/23 20:24 08/24/23 21:44 Temperature 98.8 F 97.5 F L Temperature Source Oral Temporal Pulse Rate 82 86 Pulse Strength Respiratory Rate 18 18 Respiratory Effort Normal Non-Labored Respiratory Depth Normal Respiratory Pattern Normal Blood Pressure 75/48 L 90/54 L Blood Pressure Mean 57 66 Blood Pressure Source Monitor Monitor Blood Pressure Position Supine Supine Blood Pressure Location Right Arm Left Arm Pulse Ox 95 95 Oxygen Delivery Method Room Air Room Air Room Air 08/24/23 23:06 08/25/23 00:13 08/25/23 02:00 Temperature 97.9 F 97.9 F 96.9 F L Temperature Source Temporal Temporal Temporal Pulse Rate 83 80 75 Pulse Strength Respiratory Rate 18 18 18 Respiratory Effort Respiratory Depth Respiratory Pattern Blood Pressure 78/46 L 84/50 L 87/56 L Blood Pressure Mean 56 61 66 Blood Pressure Source Monitor Blood Pressure Position Supine Blood Pressure Location Left Arm Pulse Ox 95 95 97 Oxygen Delivery Method Room Air Room Air Room Air 08/25/23 02:02 08/25/23 04:00 08/25/23 04:29 Temperature 96.9 F L Temperature Source Temporal Pulse Rate 63 Pulse Strength Respiratory Rate 18 Respiratory Effort Normal Non-Labored Respiratory Depth Normal Respiratory Pattern Normal Blood Pressure 73/56 L Blood Pressure Mean 61 Blood Pressure Source Monitor Blood Pressure Position Supine Blood Pressure Location Left Arm Pulse Ox 92 92 Oxygen Delivery Method Room Air Room Air Room Air 08/25/23 05:36 08/25/23 06:21 08/25/23 06:30 Temperature 97.1 F L Temperature Source Temporal Pulse Rate 69 67 68 Pulse Strength Respiratory Rate 16 20 H 25 H Respiratory Effort Respiratory Depth Respiratory Pattern Blood Pressure 73/59 L 90/62 88/56 L Blood Pressure Mean 63 71 66 Blood Pressure Source Monitor Monitor Monitor Blood Pressure Position Supine Semi-Fowlers Semi-Fowlers Blood Pressure Location Left Arm Left Arm Left Arm Pulse Ox 92 96 94 Oxygen Delivery Method Room Air Room Air Room Air 08/25/23 06:45 08/25/23 07:00 08/25/23 07:58 Temperature Temperature Source Pulse Rate 70 70 Pulse Strength Normal (2+) Respiratory Rate 25 H 24 H Respiratory Effort Respiratory Depth Respiratory Pattern Blood Pressure 82/63 L 86/56 L Blood Pressure Mean 69 66 Blood Pressure Source Monitor Monitor Blood Pressure Position Semi-Fowlers Semi-Fowlers Blood Pressure Location Left Arm Left Arm Pulse Ox 94 93 Oxygen Delivery Method Room Air Room Air 08/25/23 08:00 08/25/23 09:00 08/25/23 10:00 Temperature 98.2 F Temperature Source Temporal Pulse Rate 65 60 90 Pulse Strength Respiratory Rate 24 H 18 23 H Respiratory Effort Respiratory Depth Respiratory Pattern Blood Pressure 90/61 88/63 L 117/72 Blood Pressure Mean 70 71 87 Blood Pressure Source Monitor Monitor Monitor Blood Pressure Position Semi-Fowlers Semi-Fowlers Semi-Fowlers Blood Pressure Location Left Arm Left Arm Left Arm Pulse Ox 97 100 99 Oxygen Delivery Method Room Air Room Air Room Air 08/25/23 11:00 08/25/23 11:03 08/25/23 12:00 Temperature 98.2 F Temperature Source Temporal Pulse Rate 73 72 Pulse Strength Respiratory Rate 28 H 18 Respiratory Effort Respiratory Depth Respiratory Pattern Blood Pressure 92/61 84/55 L Blood Pressure Mean 71 64 Blood Pressure Source Monitor Monitor Blood Pressure Position Sitting Semi-Fowlers Blood Pressure Location Left Arm Left Arm Pulse Ox 99 99 98 Oxygen Delivery Method Room Air Room Air 08/25/23 13:00 Temperature Temperature Source Pulse Rate 67 Pulse Strength Respiratory Rate 27 H Respiratory Effort Respiratory Depth Respiratory Pattern Blood Pressure 80/53 L Blood Pressure Mean 62 Blood Pressure Source Monitor Blood Pressure Position Semi-Fowlers Blood Pressure Location Left Arm Pulse Ox 100 Oxygen Delivery Method Room Air Weight Weight: 42.6 kg Body Mass Index (BMI) 16.1 EEG Results Procedure Details EEG Procedure Details: MICK KOCH is a 63 year old F with a past medical history of , who presents for evaluation of Electroencephalogram on DATE at TIME Medical Records Data Medical Nutrition Assessment Dietitian: Malnutrition Criteria Met Start: 08/25/23 09:57 Freq: Status: Active Protocol: Document 08/25/23 09:58 IVAN (Rec: 08/25/23 09:58 [facility] [id number]) Nutrition Malnutrition Evidence of Malnutrition Exists Yes Malnutrition (severe): Chronic Evidenced By Suboptimal Energy Intake ( Severe),Weight Loss (Severe), Physical Changes (Severe) Clinical Problem Chronic Disease or Condition Related Malnutrition Etiology related to inadequate energy intake and inability to regain wt Signs/Symptoms as evidenced by <50% po intake for > 1 yr, ~ 8% wt loss x 2 wks and fat/muscle loss throughout body; BMI 16.1 Status Active Problem Recommendation Dietitian Recommendations/Changes Continue liberal regular diet - encourage healthy snacking between meals Continue 4 oz ensure plus high protein tid w/ medpass Rec consider appetite stimulant to help encourage increased po intake Lab / Micro Data 08/25/23 11:45 08/25/23 05:41 Labs: Laboratory Results - last 24 hr 08/24/23 15:35: Potassium 3.3 L 08/25/23 05:41: WBC 9.3, RBC 2.58 L, Hgb 7.6 L, Hct 24.8 L, MCV 96.1, MCH 29.5, MCHC 30.6 L, RDW Std Deviation 44.9 H, RDW Coeff of Yury 12.9, Plt Count 120 L, MPV 9.9, Immature Gran % (Auto) 0.600, Neut % (Auto) 66.5, Lymph % (Auto) 14.2 L , [place] % (Auto) 17.9 H, Eos % (Auto) 0.4, Baso % (Auto) 0.4, Absolute Neuts (auto) 6.2, Absolute Lymphs (auto) 1.32, Nucleated RBC % 0, Differential Comment SCANNED, Sodium 139, Potassium 4.6, Chloride 116 H, Carbon Dioxide 22.0, Anion Gap 1 L, BUN 10, Creatinine 0.47 L, Estim Creat Clear Calc 81.32, Est GFR (MDRD) Af Amer 170, Est GFR (MDRD) Non-Af 141, BUN/Creatinine Ratio 21.2 H, Glucose 100, Calcium 6.9 L, Phosphorus 1.6 L, Magnesium 1.5 L, Total Bilirubin 0.10 L, A ST 12 L, ALT < 6 L, Alkaline Phosphatase 39 L, Total Protein 4.7 L, Albumin 1.4 L, Globulin 3.3, Albumin/Globulin Ratio 0.4 L, Procalcitonin 0.41 H, TSH 5.94 H, Valproic Acid 52 08/25/23 06:40: Lactic Acid 0.7 08/25/23 11:45: Hgb 8.2 L, Free T4 1.06 Active Medications Active Medications Active Medications: Current Medications Generic Name Dose Route Start Last Admin Trade Name Freq PRN Reason Stop Dose Admin Acetaminophen 650 mg 08/24/23 14:22 Acetaminophen 325 Mg Tablet PO Q6H PRN PRN Pain 1-10 Or Fever>100.7 Enoxaparin Sodium 30 mg 08/25/23 10:00 08/25/23 08:59 Enoxaparin 30 Mg/0.3 Ml Syringe SC 30 mg DAILY ART Administration Sodium Chloride 1,000 mls @ 150 mls/hr 08/24/23 10:20 08/25/23 07:52 IV 150 mls/hr .[id number] ART Administration Sodium Chloride 250 mls @ 15 mls/hr 08/24/23 14:27 08/25/23 00:18 IV Infused .[id number] PRN Infusion Additional IVPB Infusion Sodium Chloride 250 mls @ 15 mls/hr 08/24/23 14:27 IV .[id number] PRN Saline Flush Norepinephrine Bitartrate 8 mg 250 mls @ 9.375 mls/hr 08/25/23 06:04 08/25/23 07:28 / Sodium Chloride CONT INF Not Given .[id number] ART Protocol 5 MCG/MIN Sodium Phosphate 40 mmol/ 513.3333 mls @ 62.5 mls/hr 08/25/23 08:00 08/25/23 09:58 Sodium Chloride IV 08/25/23 16:12 62.5 mls/hr X1 ONE Administration Pantoprazole Sodium 40 mg/ 110 mls @ 330 mls/hr 08/25/23 10:00 08/25/23 10:10 Sodium Chloride IV Infused Q12 ART Infusion Lacosamide 100 mg 08/25/23 08:00 08/25/23 09:53 Lacosamide 100 Mg Tablet PO Not Given BID ART Lorazepam 2 mg 08/24/23 14:22 Lorazepam 2 Mg/Ml Syringe IV X1 PRN Seizures Melatonin 3 mg 08/24/23 14:22 Melatonin 3 Mg Tablet PO QHS PRN PRN INSOMNIA Midodrine 10 mg 08/25/23 08:00 08/25/23 11:32 Midodrine Hcl 5 Mg Tablet PO 10 mg TIDCM ART Administration Nutritional Formula (Lactose Free) 120 ml 08/24/23 17:00 08/25/23 11:33 Ensure Plus High Protein 120 Ml Liquid PO 120 ml TIDCM ART Administration Ondansetron HCl 4 mg 08/24/23 14:22 Ondansetron 4 Mg/2 Ml Vial IV Q8H PRN PRN NAUSEA/VOMITING Senna/Docusate Sodium 2 tablet 08/24/23 14:22 Senna/Docusate Sodium 1 Tablet PO BID PRN PRN Constipation Sodium Chloride 10 - 40 ml 08/24/23 14:27 0.9% Saline Lock 10 Ml Syringe IV UD PRN SALINE FLUSH
--- NOTE | 2023-08-25 14:11 | CASEMGMT ---
TC to DC DM and they state the pt Lacosamide will cost 1.50$. Dr. Bajwa updated.
--- NOTE | 2023-08-25 14:21 | PCM.DC.SUM ---
Providers Date of Admission: 08/25/23 Date of Discharge: 08/25/23 Primary Care Physician: [facility] Consultations 08/24/23 14:22 neuro [Consult: Tele-Neurology] Routine Consulting Provider: [facility] Reason for Consult: seizures EMERGENT Consult: No Notified: Yes Date Notified: 08/24/23 Time Notified: 12:16 Method of Notification: [facility] Service Nursing Unit Staff Notify [facility] of Tele-Neurology Consult: Yes 08/25/23 06:04 Consult: Stock Fitter / Pulmonary Medicine Routine Consulting Provider: Eros Mirza Reason for Consult: Hypotension, unclear etiology EMERGENT Consult: No Notified: Yes Date Notified: 08/25/23 Time Notified: 05:40 Method of Notification: Text Reason For Visit: HYPOKALEMIA/DEHYDRATION/POSSIBLE DEPAKOTE TOXICITY Diagnosis Discharge Diagnosis (1) Hypotension: Status: Acute Code(s): I95.9 - Hypotension, unspecified (2) Valproic acid toxicity: Status: Acute Code(s): T42.6X1A - Poisoning by other antiepileptic and sedative-hypnotic drugs, accidental (unintentional), initial encounter (3) Seizure disorder: Status: Chronic Code(s): G40.909 - Epilepsy, unspecified, not intractable, without status epilepticus Medications at Discharge Home Medications clonazepam 0.25 mg disintegrating tablet 0.25 mg PO PRN PRN Seizures 10/10/19 divalproex 250 mg tablet,extended release 24 hr (Depakote ER) 750 mg (3 x 250 mg) PO BID #180 tabs 08/25/23 lacosamide 100 mg tablet 100 mg PO BID #60 tabs 08/25/23 Hospital Course Operations None Procedures Electroencephalogram, EKG and - (CT brain) Summary of Care Provided Minutes Spent on Discharge: 37 Hospital Course: MICK KOCH, is a 63 F who presented to the emergency department at [facility] on 08/24/2023 due to weakness. Patient reported that in early July she was having increased seizures and called her neurologist, Maci Reid, at [facility] and she instructed her to increase her Depakote dosing from 750 mg p.o. twice daily to 1000 mg p.o. twice daily. She states she has not had any seizures since that point in time but since about a week after the dose increase she has gotten progressively weaker with intermittent nausea, decreased appetite, shakiness and intermittent altered mental status. Her friend who is at the bedside has reported that its gotten progressively worse since that point in time. She has a history of alcohol abuse but denies any use in the last 3 years and states she has been sober since 2020. She states she is felt so poorly yesterday she had to come home from work. She is complaining of some intermittent loose stools predominantly in the morning. Denies significant voluminous diarrhea. She states I just do not feel right. Vital signs the emergency department showed a temperature of 96.2, heart rate 104, blood pressure 86/69, respiratory rate is 14 oxygen saturations are 98% on room air. Her CBC showed a normal white count with a mild anemia having a hemoglobin of 10.3. Chemistry panel showed hyponatremia with a sodium of 133, hypokalemia with a potassium of 2.7, bicarb and anion gap were within normal limits, BUN was 19 and serum creatinine was 0.8. With her weight and lean body mass I suspect this is significantly elevated compared to what her baseline should be. Glucose was normal. Liver functions unremarkable. Troponin was 10. Total albumin is 2.1. Her UA was not consistent with infection. CT of the brain was unremarkable for any acute findings. Valproic acid level was drawn and found to be markedly elevated at 145. She was admitted to medical floor and maintained on IV fluids, started on dietary supplements as we did highly suspect severe malnutrition which was confirmed by the dietitian and gave her a an IV bolus of Vimpat followed by 100 mg p.o. twice daily. Overnight she remained hypotensive however it appears that most of her maps were greater than 65 however the architectural model maker felt that she would be better served in the ICU so she was transferred there. She does report that her baseline systolic blood pressures around 90. She was asymptomatic with her blood pressures where they were and had no lactic acid elevation change in creatinine her mental status was at baseline. By the a.m. of 08/25/2023 she indicated she was feeling much better and her valproic acid had dropped to 52. She was noted to be anemic however I suspect this is her baseline. She appeared quite dehydrated on presentation and was treated with aggressive IV fluids. We did repeat her a.m. hemoglobin and it was 8.2. She is still anemic however stable so I do recommend she follow-up with her outpatient PCP for further workup with regards to her anemia but this was not pursued any more extensively at this time due to its apparent chronicity. She was seen by neurology and they felt clinically she was much improved they recommended decreasing her valproic acid back to the 750 mg that she was on prior to the up titration 3 weeks ago and adding the Vimpat to avoid further seizure activity. They recommend the same dose of Vimpat at 100 mg p.o. twice daily. The patient has an upcoming appointment with her primary seizure neurologist on September 22, 2023 and she was encouraged to keep this appointment. She was seen by physical and Occupational Therapy and they felt she did fairly well. She does have some balance issues and the patient states this is typical for her baseline. They recommended ongoing outpatient physical therapy and the patient was amenable to this. She was given a prescription for this. She was discharged in stable condition with prescriptions for her change in Depakote dosing as well as her Vimpat on 08/25/2023. Discharge diagnoses: Acute hypotension-back to baseline during the day Severe hypokalemia-resolved Hypomagnesemia-replace Hypophosphatemia-replaced Depakote toxicity-resolved Hyponatremia-resolved Generalized weakness-improved History of seizure disorder Severe malnutrition Anemia-appears to be chronic History of alcohol abuse History of anxiety and depression Physical Exam Const alert, oriented x3 and no apparent distress; Negative for average body habitus, healthy appearing or well nourished Constitutional Narrative: Frail-appearing, upper middle-aged, white female, sitting up in bed, appears comfortable, nontoxic, mentation is good, interacts appropriately, mild tremor noted-patient reports this is baseline for her General Appearance: cooperative, comfortable, well kempt and well developed Exam Limitations: no limitations Nutritional Appearance: cachectic HEENT normocephalic, head/scalp atraumatic, hearing grossly normal bilaterally and moist oral mucous membranes HEENT Narrative: Mallampati is 2, no thrush Eyes PERRL, EOMs intact bilaterally and conjunctivae normal Eyes Narrative: No scleral icterus Neck no lymphadenopathy and supple Neck Narrative: Trachea midline, no thyroid enlargement Resp normal respiratory effort, no retractions, no use of accessory muscles and clear to auscultation bilaterally Resp Narrative: Diffusely diminished but clear Auscultation: Negative for rales, rhonchi or wheezes Cardio regular rate, regular rhythm, S1 normal heart sound, S2 normal heart sound, no murmurs, no rub, no gallops and no clicks GI normal to inspection, nondistended, normoactive bowel sounds, soft to palpation and non-tender GI Narrative: Scaphoid abdomen Extremity no clubbing, cyanosis or edema Extremity Narrative: Pedal pulses and radial pulses are 2+, markedly decreased lean muscle mass Skin no rashes or lesions noted, no wounds, skin turgor normal, no jaundice, no petechiae and no mottling Neuro oriented x3, CN's II-XII intact bilaterally, moves all extremities and no focal motor deficits Neuro Narrative: Generalized weakness noted with proximal musculature being weaker than distal but no focal deficits, fine tremor noted on exam--> patient reports this is her baseline tremor at this time Speech: speech normal Psych affect normal Psych Narrative: Eye contact is good, patient is very pleasant, interacts appropriately Medical Records Data Medical Nutrition Assessment Dietitian: Malnutrition Criteria Met Start: 08/25/23 09:57 Freq: Status: Active Protocol: Document 08/25/23 09:58 [facility] (Rec: 08/25/23 09:58 [facility] [id number]) Nutrition Malnutrition Evidence of Malnutrition Exists Yes Malnutrition (severe): Chronic Evidenced By Suboptimal Energy Intake ( Severe),Weight Loss (Severe), Physical Changes (Severe) Clinical Problem Chronic Disease or Condition Related Malnutrition Etiology related to inadequate energy intake and inability to regain wt Signs/Symptoms as evidenced by <50% po intake for > 1 yr, ~ 8% wt loss x 2 wks and fat/muscle loss throughout body; BMI 16.1 Status Active Problem Recommendation Dietitian Recommendations/Changes Continue liberal regular diet - encourage healthy snacking between meals Continue 4 oz ensure plus high protein tid w/ medpass Rec consider appetite stimulant to help encourage increased po intake Weight / BMI Weight Weight: 42.6 kg Body Mass Index (BMI) 16.1 ABG / Lab / Microbiology Data 08/25/23 11:45 08/25/23 05:41 Laboratory: Laboratory Results - last 24 hr 08/24/23 15:35: Potassium 3.3 L 08/25/23 05:41: WBC 9.3, RBC 2.58 L, Hgb 7.6 L, Hct 24.8 L, MCV 96.1, MCH 29.5, MCHC 30.6 L, RDW Std Deviation 44.9 H, RDW Coeff of Yury 12.9, Plt Count 120 L, MPV 9.9, Immature Gran % (Auto) 0.600, Neut % (Auto) 66.5, Lymph % (Auto) 14.2 L, [place] % (Auto) 17.9 H, Eos % (Auto) 0.4, Baso % (Auto) 0.4, Absolute Neuts (auto) 6.2, Absolute Lymphs (auto) 1.32, Nucleated RBC % 0, Differential Comment SCANNED, Sodium 139, Potassium 4.6, Chloride 116 H, Carbon Dioxide 22.0, Anion Gap 1 L, BUN 10, Creatinine 0.47 L, Estim Creat Clear Calc 81.32, Est GFR (MDRD) Af Amer 170, Est GFR (MDRD) Non-Af 141, BUN/Creatinine Ratio 21.2 H, Glucose 100, Calcium 6.9 L, Phosphorus 1.6 L, Magnesium 1.5 L, Total Bilirubin 0.10 L, AST 12 L, ALT < 6 L, Alkaline Phosphatase 39 L, Total Protein 4.7 L, Albumin 1.4 L, Globulin 3.3, Albumin/Globulin Ratio 0.4 L, Procalcitonin 0.41 H, TSH 5.94 H, Valproic Acid 52 08/25/23 06:40: Lactic Acid 0.7 08/25/23 11:45: Hgb 8.2 L, Free T4 1.06 D/C Instructions Discharge Diet: No restrictions Discharge Activity: Return to Normal Activity Return to work on: 08/28/23 Meaningful Use Info Meaningful Use Meaningful Use Diagnoses (Choose all that apply): None applicable Ischemic Stroke Statin Dosing Therapy Reference: STATIN DOSE THERAPY REFERENCE: * Patients > 75 years receive moderate or high dose statin therapy. * Patients 75 years or YOUNGER should receive HIGH intensity statin dose unless contraindicated. You will be required to document reason for non-treatment if statin daily dose does not meet guidelines. HIGH DOSE STATIN THERAPY DAILY Atorvastatin > than or = to 40 mg Rosuvastatin > than or = to 20 mg Amlodipine + Atorvastatin > than or = to 2.5/40 mg Ezetimibe + Simvastatin 10/80 mg Simvastatin 80mg Discharge Plan Admission Admit Date/Time: 05/31/24 06:27 Primary Reason for Your Visit: Weakness Attending Provider: Tania Bajwa Primary Care Provider: [facility] Sarah Sosa Consulting Providers: Lina Pérez; Elizabeth Espino; Dayna Cardoso; Maryjane Alvarez; Eros Mirza; Jeyson Bloom; Zoila Ziegler; Nancy Villa; Guillermo Crowe; Christine Solomon; Robert Simon; Jimbo Mckoy; Cosmo Flores; Renay Romero; Mony Mobley; Cristobal Jacobs; Deirdre Wren; Tommy Camara; Prudence Bajwa; Jeff Donahue; Loni Nevarez; Francisco Paz; Colten Boss; JOVANA TEMPLE; Otf Martinez; Shefali Roper Instructions Additional Instructions / Restrictions: 1. Please follow-up with your seizure neurologist as scheduled on September 22, 2023 -You did have Depakote toxicity and your dose was reduced to 750 mg p.o. twice daily -We also added Vimpat 100 mg twice daily -You were seen by [facility] neurology and these were the recommendations during her hospitalization -They recommended following up with your neurologist after discharge to see if they would like to change anything else Discharge Orders/Prescriptions Prescriptions: New lacosamide 100 mg Tablet 100 mg PO BID Qty: 60 1RF divalproex [Depakote ER] 250 mg tablet extended release 24 hr 750 mg PO BID Qty: 180 0RF Continued clonazepam 0.25 MG tablet,disintegrating 0.25 mg PO PRN PRN (Reason: Seizures) Discontinued divalproex [Depakote ER] 250 mg tablet extended release 24 hr 1,000 mg PO BID Referrals / Follow Up: [facility],Sarah Richard [Primary Care Provider] - Within 1 Week Disposition Disposition (needs filled in before D/C Order can be placed): Home, Self Care Charges/Coding Visit Charges Inpatient E&M: 85042 Disch Hosp >30min
--- NOTE | 2023-08-25 14:46 | CASEMGMT ---
signs Rx for OP Therapy. Rx given to the pt at this time. Pt states that she will schedule the appt herself. Pt denies further needs at this time and is cleared for DC.
== END 2023-08-25 17:07 | disposition home or self-care (01) | DRG 917 ==
LOC: ED 12:47 → PCU 12:51 → ICU 08-25 08:33
PROVIDERS: Internal Medicine Critical Care Medicine; Admitting Provider Internal Medicine; Emergency Provider Emergency Medicine; Visit Provider Family Medicine
DX: T42.6X1A Poisoning by other antiepileptic and sedative-hypnotic drugs, accidental (unintentional), initial encounter (principal); E43 Unspecified severe protein-calorie malnutrition; E87.1 Hypo-osmolality and hyponatremia; Z68.1 Body mass index [BMI] 19.9 or less, adult; E83.39 Other disorders of phosphorus metabolism; I95.9 Hypotension, unspecified; G40.909 Epilepsy, unspecified, not intractable, without status epilepticus; F10.21 Alcohol dependence, in remission; F32.A Depression, unspecified; D64.9 Anemia, unspecified; E87.6 Hypokalemia; E86.0 Dehydration; F41.9 Anxiety disorder, unspecified; E83.42 Hypomagnesemia; Z87.891 Personal history of nicotine dependence; Z79.899 Other long term (current) drug therapy
CPT/HCPCS: 36415; 70450; 80048; 80053; 80076; 80164; 81001; 83605; 83735; 84100; 84132; 84145; 84439; 84443; 84484; 85018; 85025; 87040; 87086; 87088; 93005; 95819; 96361; 96365; 96366; 96367; 96368; 96372; 97162; 97166; 97802; 99221; 99285; J7030; J7040; J7050; A4216; G0378

== ENCOUNTER 2023-08-31 16:53 | Inpatient (IN) | payer MEDICARE, MEDICAID, SELFPAY ==
[2023-08-31] VITALS (14 sets, daily range): BP systolic 75–98; BP diastolic 48–57; PULSE 78–105; RESP 11–25; TEMP 36.4–38.7; O2SAT 94–98; BMI 17.0; BMI 17.1
--- NOTE | 2023-08-31 17:09 | EDS_ITS ---
<Statement entered by Shanice Swann MD - 08/31/23 21:25> I have personally performed a face to face assessment of the patient and have reviewed the ANTONIO Note. Patient presents secondary to weakness and shakiness. Patient was admitted to the hospital in late July with hypokalemia and valproic acid toxicity. She was discharged on 24 August. Patient presents back today stating that her sister brought her in because she is weak and shaky. She denies known fever at home but was febrile on arrival. She denies cough, abdominal pain, vomiting, or diarrhea. Patient lying in bed no acute distress. She appears ill but not toxic. Head and neck examination reveals no external sign of trauma. Heart is tachycardic and regular. Lung sounds are clear. Abdomen is soft with no focal tenderness. No guarding or rebound. Patient moving all 4 extremities and answering questions appropriately. CBC reveals a white count of 13.2 with a hemoglobin of 7.3. Hemoglobin while in the hospital was 7.6 and 8.2 on her last 2 draws. INR is 1.4. Chemistry studies reveal potassium low at 3.0. This is replaced with IV potassium. Renal function is normal. Glucose is 173. LFTs are largely unremarkable. Lactic acid is normal at 1.2. Urinalysis reveals no evidence of infection. Valproic acid level is therapeutic at 92. Swab for COVID, influenza, and RSV is negative. Patient has a history of chronic hypotension with systolic pressures ranging from 80-100 during much of her most recent hospitalization. With no obvious source of infection, but patient being a poor historian we did elect to perform a CT scan of her abdomen and pelvis. This reveals evidence of 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 with a periappendiceal abscess. Patient given a dose of Zosyn. Patient discussed with surgery as well as hospitalist. Patient be admitted to the ICU for close monitoring with plan for drain of her abscess. HPI History of Present Illness Chief Complaint: Weakness Narrative Narrative: Patient is a 63-year-old female with history of seizure disorder that is on Depakote, history of anemia, hyponatremia, malnutrition who presents to the emergency department for fever, weakness. Patient was recently admitted here for Depakote toxicity, she was discharged on August 24. Patient has family from out of town, they noticed that she was very unsteady on her feet, and called the ambulance. Patient is here for evaluation. Patient was unaware that she had a fever. She denies any cough, nausea or vomiting. Patient states she is still taking her Depakote however it is a much less dose. [facility] Medical History Alcohol dependence Marijuana abuse ETOH abuse IBS (irritable bowel syndrome) Anxiety Depression Seizure Home Medications ?Medication ?Instructions ?Recorded ?Last Taken ?Type clonazepam 0.25 mg disintegrating 0.25 mg PO PRN PRN Seizures 10/10/19 Unknown History tablet divalproex 250 mg tablet,extended 750 mg (3 x 250 mg) PO BID #180 08/25/23 Unknown Rx release 24 hr (Depakote ER) tabs lacosamide 100 mg tablet 100 mg PO BID #60 tabs 08/25/23 Unknown Rx Allergy/AdvReac Type Severity Reaction Status Date / Time erythromycin base Allergy TONGUE Verified 08/31/23 17:17 PEELS Family History Sister Melanoma Father Prostate CA Surgical History Status post total shoulder replacement Shoulder joint replacement status Social History household members: none housing: apartment Smoking Status: Former smoker alcohol intake: former year quit: 2020 substance use type: marijuana ROS ROS ED ROS Narrative Constitutional: Negative for fever, chills, weight loss. Positive for weakness Eyes: Negative for vision loss, vision change, double vision ENT: Negative for any sore throat, ear pain, congestion Cardiovascular: Negative for any chest pain, tightness, palpitations Respiratory: Negative for any cough, sputum production, hemoptysis, dyspnea, dyspnea on exertion, orthopnea Gastrointestinal: Negative for any abdominal pain, nausea, vomiting, diarrhea, constipation, blood in stool, blood in vomit : Negative for any urinary frequency, dysuria, retention, blood in urine Muscle skeletal: Negative for any neck pain, back pain Neurological: Negative for any headache, syncope, dizziness Skin: Negative for any rashes, itching, abrasions, lacerations Psychiatric: Negative for any depression, anxiety, stress, suicidal ideation, homicidal ideation Hematologic: Negative for any excessive bruising, easy bleeding EXAM Physical Exam Narrative Exam Narrative: Vital signs reviewed. Patient is febrile here, tachycardic, slightly hypotensive. She is alert and orient x 4. HEET: Head normocephalic atraumatic, TMs clear bilaterally. Posterior pharynx is clear, moist mucous membranes. Nares clear bilaterally. Neck: Supple with no lymphadenopathy or tenderness. No signs of meningismus. Cardiac: Regular rate and rhythm no murmurs gallops or rubs, equal peripheral pulses bilaterally. Respiratory: Lungs clear to auscultation bilaterally. No chest tenderness. Abdomen: Soft, nontender, nondistended. No abdominal bruit or pulsatile masses. No hepatosplenomegaly Extremities: No peripheral edema, no signs of gross trauma or deformity. Active full range of motion of all extremities. Neuro: Cranial nerves II through XII intact, no focal neurological deficits. Skin: Clean dry and intact with no rash, purpura, petechiae, vesicles or pustules. Backs/flank: No CVA tenderness, no midline spinal tenderness, no deformity. Psych: Normal mood and affect. No SI, HI or acute psychosis. Const Vital Signs: 08/31/23 16:54 08/31/23 16:54 08/31/23 17:02 Temperature 101.6 F H 101.6 F H Temperature Source Oral Oral Pulse Rate 105 H 105 H Respiratory Rate 16 22 H Respiratory Effort Normal Respiratory Pattern Normal Blood Pressure 98/56 L 98/56 L Blood Pressure Mean 70 70 Blood Pressure Source Blood Pressure Position Blood Pressure Location Pulse Ox 94 94 Oxygen Delivery Method Room Air Room Air 08/31/23 17:17 08/31/23 18:02 08/31/23 18:20 Temperature 100 F H Temperature Source Oral Pulse Rate 104 H 100 Respiratory Rate 20 H 16 Respiratory Effort Respiratory Pattern Blood Pressure 75/48 L 91/57 L Blood Pressure Mean 57 68 Blood Pressure Source Blood Pressure Position Blood Pressure Location Pulse Ox 94 96 98 Oxygen Delivery Method Room Air Room Air Room Air 08/31/23 19:00 08/31/23 20:00 08/31/23 20:08 Temperature 99.1 F 99.2 F H 99.2 F H Temperature Source Oral Oral Oral Pulse Rate 91 90 94 Respiratory Rate 14 16 14 Respiratory Effort Respiratory Pattern Blood Pressure 82/52 L 86/49 L 86/49 L Blood Pressure Mean 62 61 61 Blood Pressure Source Monitor Blood Pressure Position Semi-Fowlers Blood Pressure Location Left Arm Pulse Ox 95 97 97 Oxygen Delivery Method Room Air Room Air Room Air Positive cachectic and unkempt General Appearance ED: unkempt and cachectic Nutritional Appearance: cachectic Psych Appearance: unkempt [facility] MDM Lab Data Labs: Laboratory Results - last 24 hr 08/31/23 08/31/23 17:30 17:36 WBC 13.2 H RBC 2.45 L Hgb 7.3 L Hct 22.8 L MCV 93.1 MCH 29.8 MCHC 32.0 RDW Std Deviation 44.5 H RDW Coeff of Yury 13.1 Plt Count 355 MPV 9.1 Immature Gran % (Auto) 0.400 Neut % (Auto) 79.2 H Lymph % (Auto) 5.4 L [place] % (Auto) 14.3 H Eos % (Auto) 0.4 Baso % (Auto) 0.3 Absolute Neuts (auto) 10.5 H Absolute Lymphs (auto) 0.71 L Nucleated RBC % 0 Differential Comment SCANNED Diff Path Review July foll PT 17.3 H INR 1.4 APTT 33.8 Sodium 134 L Potassium 3.0 L Chloride 101 Carbon Dioxide 27.0 Anion Gap 6 BUN 13 Creatinine 0.54 L Estim Creat Clear Calc 74.93 Est GFR (MDRD) Af Amer 147 Est GFR (MDRD) Non-Af 121 BUN/Creatinine Ratio 24.2 H Glucose 173 H Lactic Acid 1.2 Calcium 7.9 L Total Bilirubin 0.20 AST 51 H ALT 19 Alkaline Phosphatase 85 Total Protein 5.7 L Albumin 1.6 L Globulin 4.1 Albumin/Globulin Ratio 0.4 L Urine Color Yellow Urine Clarity Clear Urine pH 6.5 Ur Specific [place] 1.010 Urine Protein 15 H Urine Glucose (UA) Normal Urine Ketones 15 H Urine Occult Blood 25 H Urine Nitrite Negative Urine Bilirubin 1 H Urine Urobilinogen 8 H Ur Leukocyte Esterase Negative Urine RBC 0 SEEN Urine WBC 0 SEEN Ur Squamous Epith Cells 0 SEEN Urine Bacteria 1+ Urine Mucus 0 SEEN Valproic Acid 92 Radiography Diagnostic Testing: Clinical Impression(s) from Imaging Studies Chest X-Ray 08/31/23 18:20 IMPRESSION: No acute findings in the chest. Electronically Signed: Ilya Everett MD at 18:51 EDT , Abdomen/Pelvis CT 08/31/23 19:18 IMPRESSION: Enlarged appendix compatible with 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. There is a peripherally enhancing fluid collection in the right lower quadrant abutting against the terminal ileum compatible with a periappendiceal abscess. There is no free air identified. There is free fluid in the pelvis. Electronically Signed: Ilya Everett MD at 19:41 EDT , ADDENDUM: 08/31/232000 IMPRESSION: Enlarged appendix compatible with 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. There is a peripherally enhancing fluid collection in the right lower quadrant abutting against the terminal ileum compatible with a periappendiceal abscess. There is no free air identified. There is free fluid in the pelvis. N.B. : The above Results were Read Back by Ilya Everett MD to Shanice Swann MD, and understanding confirmed on 08/31/2023 19:54:56 (ET). Electronically Signed: Ilya Everett MD at 19:41 EDT , EKG Sinus tachycardia: Attestation: I personally reviewed and interpreted this EKG as follows: Comments: Sinus tachycardia, rate 103 bpm, NJ 118 ms, QRS duration [address] elevation, no acute infarct. Treatment and Re-Evaluation :: Differential diagnosis includes however is not limited to: Sepsis, community- acquired pneumonia, viral infection, COVID-19, influenza, UTI, Depakote toxicity Patient appears to be in no obvious respiratory distress, patient's blood pressure slightly soft at 98/56. Patient slightly tachycardic. Temperature of 101.6. Patient will receive a full septic workup including 2 sets of blood cultures, lactic. I will add a valproic acid secondary to the patient's history of toxicity. Patient given IV fluids, Tylenol. Chest x-ray as well as urinalysis will be ordered. Patient will be reevaluated. Patient's chest x-ray to her by ER physician was negative. Urinalysis showed 1+ bacteria however there is no white blood cells, negative leukocytes, negative for any nitrites. This is negative urine. Patient is negative for any COVID-19 influenza, RSV. Laboratory values show a leukocytosis with white blood count of 13.2, patient's hemoglobin is 7.3 however patient does have history of this. PT/INR showed a PT of 17.3, INR 1.4. Patient's chemistries showed a decrease in potassium with a potassium level 3.0. Kidney function slightly low. Patient's glucose 173. Valproic acid is 92 which is within normal limits. At this time, patient did receive a 30 mL/kg bolus, 2 sets of blood cultures were ordered. Patient will receive a CT scan of the abdomen pelvis. I do believe the patient will need to be admitted to the hospital. Vital signs remained stable, blood pressure still slightly low at 90/55. Patient's CT scan of the abdomen pelvis shows enlarged appendix compatible with 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. There is a very fairly enhancing fluid collection in the right lower quadrant abutting against the terminal ileum compatible with periappendiceal abscess. There is no free air identified. There is no free fluid in the pelvis. I will reach out to surgery. Surgery was consulted, the surgeon like to look closer at the CT scan, she will call back. Dr. Rudd will admit the patient, however I will speak to medicine to ensure that they are in consult. IV Zosyn was ordered. Patient remains in no obvious distress. Discharge Plan Triage Chief Complaint: Weakness ED Midlevel Provider: Steve Hayward ED Provider: Shanice Swann Dx/Rx/DC Orders Clinical Impression: Sepsis, Anemia, Acute 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 with appendiceal abscess, Acute alteration in mental status Prescriptions: No Action clonazepam 0.25 MG tablet,disintegrating 0.25 mg PO PRN PRN (Reason: Seizures) lacosamide 100 mg Tablet 100 mg PO BID Qty: 60 1RF divalproex [Depakote ER] 250 mg tablet extended release 24 hr 750 mg PO BID Qty: 180 0RF Primary Care Provider: Sarah Fine Referrals: [facility] Sarah Sosa [Primary Care Provider] - Print Language: Yakut Disposition Disposition: Acute Care Hospital [facility]
[2023-08-31] MEDS: Acetaminophen 500 MG Tablet 1000 MG PO (17:41)
[2023-08-31] MEDS: 0.9% Normal Saline (1000mL) 1,000 ML 999 ML IV (17:42)
[2023-08-31 17:46] LABS: Mucous, Urine 0 SEEN /hpf (<or=2+); Red Blood Cells-Urine 0 SEEN /hpf (0-5); Squamous Epithelial Cells - UA 0 SEEN /hpf (5-10); White Blood Cells 0 SEEN /hpf (0-5)
[2023-08-31 17:49] LABS: Absolute Lymphocyte Count 0.71 X10^3/uL (0.83-4.51); Absolute Neutrophil Count 10.5 X10^3/uL (2.0-7.7); Basophil# 0.04 X10^3/uL; Basophil% 0.3 % (0-1); Eosinophil# 0.05 X10^3/uL; Eosinophils% 0.4 % (0-5); Hematocrit 22.8 % (37-47); Hemoglobin 7.3 g/dL (12.0-15.0); Lymphocyte # 0.71 X10^3/ul (0.83-4.51); Lymphocyte % 5.4 % (19-41); Mean Corpuscular Hgb 29.8 pg (27.0-32.0); Mean Corpuscular Volume 93.1 fL (81-99); Mean Platelet Vol. 9.1 fl (6.2-12.0); Monocyte# 1.88 X10^3/uL; Monocyte% 14.3 % (0-10); NRBC Flagged by Analyzer 0 % (0-5); Neutrophil # 10.45 X10^3/uL (2.7-7.7); Neutrophil % 79.2 % (47-70); POSITIVE DIFFERENTIAL YES; Platelet Count 355 K/mm3 (150-450); RBC Distribution Width CV 13.1 % (11.6-14.6); RBC Distribution Width SD 44.5 fl (35.1-43.9); Red Blood Count 2.45 M/mm3 (4.2-5.4); White Blood Count 13.2 K/mm3 (4.4-11.0)
[2023-08-31 17:54] LABS: Differential Indicated SCAN CRITERIA MET
[2023-08-31 17:59] LABS: Color, Urine Yellow (Yellow); Glucose, Dipstick Normal (Normal); Ketone-Dipstick 15 mg/dl (Negative); Leukocyte Esterase-Dipstick Negative /ul (Negative); Nitrite-Dipstick Negative (Negative); Occult Blood-Urine 25 /ul (Negative); Protein-Dipstick 15 mg/dl (Negative); Urine Clarity Clear (Clear); Urine Urobilinogen 8 mg/dl (Normal); Urine pH 6.5 (5.0 - 8.0)
[2023-08-31 18:06] LABS: Urine Bilirubin Dipstick 1 mg/dL (Negative)
[2023-08-31 18:07] LABS: Valproic Acid (Depakene) Level 92 ug/mL (50-100)
[2023-08-31 18:08] LABS: Bacteria 1+ /hpf (None Seen)
[2023-08-31 18:10] LABS: ALB/GLOB Ratio 0.4 RATIO (0.9-2.4); AST(SGOT) 51 U/L (15-37); Alanine Aminotransfer ALT/SGPT 19 U/L (13-56); Albumin, Serum 1.6 g/dL (3.2-5.0); Alkaline Phosphatase 85 U/L (45-117); Anion Gap 6 (5-15); BUN 13 mg/dL (7-18); BUN/Creat Ratio 24.2 RATIO (10-20); Calcium,Total 7.9 mg/dL (8.5-10.1); Chloride 101 mmol/L (98-107); Creatinine, Serum 0.54 mg/dL (0.55-1.02); EST Glomerular Filtration Rate 121 mL/min (>60); Est Glom Filt Rate - Afr Amer 147 mL/min (>60); Estimated Creatinine Clearance 74.93 ml/min; Globulin 4.1 g/dL (2.2-4.2); Glucose 173 mg/dL (74-106); Protein, Total 5.7 g/dL (6.4-8.2); Sodium Level 134 mmol/L (136-145)
[2023-08-31 18:15] LABS: Lactic Acid 1.2 mmol/L (0.4-1.9)
--- NOTE | 2023-08-31 18:20 | RAD_ITS ---
EXAM: XR CHEST, 1 VIEW CLINICAL INDICATION: cough TECHNIQUE: Frontal view of the chest. COMPARISON: No relevant prior studies available. FINDINGS: LUNGS AND PLEURAL SPACES: Unremarkable. No consolidation or edema. No pneumothorax. No effusion. HEART: Unremarkable. Cardiac silhouette not enlarged. MEDIASTINUM: Central airways and mediastinal contour are unremarkable. BONES/JOINTS: There is a left shoulder prosthesis. No acute fracture. SOFT TISSUES: Unremarkable. RAD/Chest 1 View (Portable) IMPRESSION: No acute findings in the chest. Electronically Signed: Ilya Everett MD at 18:51 EDT ,
[2023-08-31] MEDS: 0.9% Normal Saline (500mL Bag) 500 ML 999 ML IV (18:30)
[2023-08-31 18:41] LABS: Differential Comment SCANNED
[2023-08-31 18:45] LABS: International Normalized Ratio 1.4; Prothrombin Time (Protime)PT. 17.3 SECONDS (11.7-14.9)
[2023-08-31 18:46] LABS: Partial Thromboplast Time 33.8 Seconds (24.1-36.2)
[2023-08-31] MEDS: Potassium Chloride 10mEq/100mL 10 MEQ/100 ML IV.SOLN. 100 MEQ IV BOLUS ×4 (19:05→23:50)
--- NOTE | 2023-08-31 19:18 | CT_ITS ---
We are attempting to reach an attending provider to discuss findings. An addendum with communication details will be sent when the communication is complete. EXAM: CT ABDOMEN AND PELVIS WITH INTRAVENOUS CONTRAST CLINICAL INDICATION: abdominal pain TECHNIQUE: Helically acquired images were obtained of the abdomen and pelvis with intravenous contrast. This CT exam was performed using one or more of the following dose reduction techniques: automated exposure control, adjustment of the mA and/or kV according to patient size, and/or use of iterative reconstruction technique. CONTRAST: IV 75mL Isovue-370 COMPARISON: No relevant prior studies available. FINDINGS: LOWER THORAX: There are small bilateral pleural effusions larger on the left than on the right. There is bibasilar atelectasis. There is a small pericardial effusion that measures 8 mm in greatest diameter. ABDOMEN: LIVER: Unremarkable. Homogeneous. No focal mass. GALLBLADDER AND BILE DUCTS: Unremarkable. No calcified gallstones. No gallbladder distention or wall edema. No intra- or extrahepatic biliary ductal dilation. PANCREAS: Unremarkable. No focal cystic or solid mass. SPLEEN: Unremarkable. Normal size without focal cystic or solid mass. ADRENALS: Unremarkable. No nodules. KIDNEYS AND URETERS: Unremarkable. Normal renal size and position. No hydronephrosis. STOMACH AND BOWEL: Unremarkable. No stomach or bowel distention. No focal inflammatory change. PELVIS: APPENDIX: There is a peripherally enhancing low-density collection in the right lower quadrant that measures 5.0 x 3.6 x 3.2 cm suspicious for an abscess. This is abutting against and terminal ileum. Appendix is enlarged measuring 2.4 cm compatible with 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 and this may represent an appendiceal abscess. There is no free air identified. BLADDER: Unremarkable. REPRODUCTIVE: Unremarkable as visualized. No mass. ABDOMEN and PELVIS: INTRAPERITONEAL SPACE: There is a small amount of free fluid anterior liver margin which may represent minimal ascites. There is free fluid in the pelvis. BONES/JOINTS: Unremarkable. No suspicious lytic or blastic abnormality. SOFT TISSUES: Unremarkable. No discrete abdominal or pelvic wall hernia. VASCULATURE: Unremarkable. Abdominal aorta is non-dilated. LYMPH NODES: Unremarkable. No enlarged lymph nodes. CT/Abdomen/Pelvis W IV Cont ONLY IMPRESSION: Enlarged appendix compatible with 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. There is a peripherally enhancing fluid collection in the right lower quadrant abutting against the terminal ileum compatible with a periappendiceal abscess. There is no free air identified. There is free fluid in the pelvis. Electronically Signed: Ilya Everett MD at 19:41 EDT ,
[2023-08-31] MEDS: Piperacil/Tazobactam 3.375 GM in 0.9% Normal Saline (50mL MB+) 50 ML IV (20:18)
--- NOTE | 2023-08-31 20:36 | HP.PCM.SX_ITS ---
HPI - General General Date of Admission: 08/31/23 HPI Narrative MICK KOCH, is a 63 F who presents initially presents with her sister to the ER due to weakness and was found to also have a fever with some hypotension in the ER. Patient denied any abdominal pain nausea or vomiting patient's sister states she has not ate for the last 24 hours. Patient states she only eats very little normally maybe a couple Italian muffins. Patient was found to have a white blood count of 13. Patient has CT abdomen pelvis that did show a 5 cm abscess official read called the appendix 2.4 cm on my read I cannot definitively see the appendix. Patient denies abdominal pain or any history of nausea or vomiting. Patient states she has bowel movements daily on the looser side denies any black or red blood. Patient states she normally does not complain of pain when asked if she had a high pain tolerance. But did state when she broke her arm/shoulder she did have pain with that. Patient states he has been sober for 3 years. [facility] Medical History Alcohol dependence Marijuana abuse ETOH abuse IBS (irritable bowel syndrome) Anxiety Depression Seizure Home Medications ?Medication ?Instructions ?Recorded ?Last Taken ?Type clonazepam 0.25 mg disintegrating 0.25 mg PO PRN PRN Seizures 10/10/19 Unknown History tablet divalproex 250 mg tablet,extended 750 mg (3 x 250 mg) PO BID #180 08/25/23 Unknown Rx release 24 hr (Depakote ER) tabs lacosamide 100 mg tablet 100 mg PO BID #60 tabs 08/25/23 Unknown Rx Allergy/AdvReac Type Severity Reaction Status Date / Time erythromycin base Allergy TONGUE Verified 08/31/23 17:17 HALIMA Family History Sister Melanoma Father Prostate CA Surgical History Status post total shoulder replacement Shoulder joint replacement status Social History household members: none housing: apartment Smoking Status: Former smoker alcohol intake: former year quit: 2020 substance use type: marijuana ROS Constitutional Constitutional: Reports anorexia and fever(s) Eyes Eyes: Denies loss of central vision ENT HEENT: Denies dysphagia Cardiovascular Cardiovascular: Denies chest pain Respiratory/Chest Respiratory/Chest: Denies cough Gastrointestinal Gastrointestinal: Reports diarrhea; Denies abdominal pain, constipation, nausea or vomiting Genitourinary Genitourinary: Denies dysuria Musculoskeletal Musculoskeletal: Denies numbness Integumentary Integumentary: Denies jaundice Neurologic Neurologic: Reports weakness Psychiatric Psychiatric: Denies anxiety Hematologic/Lymphatic Hematologic/Lymphatic: Denies easy bleeding Vital Signs Vital Signs Vital Signs: 08/31/23 16:54 08/31/23 16:54 08/31/23 17:02 Temperature 101.6 F H 101.6 F H Temperature Source Oral Oral Pulse Rate 105 H 105 H Respiratory Rate 16 22 H Respiratory Effort Normal Respiratory Pattern Normal Blood Pressure 98/56 L 98/56 L Blood Pressure Mean 70 70 Blood Pressure Source Blood Pressure Position Blood Pressure Location Pulse Ox 94 94 Oxygen Delivery Method Room Air Room Air 08/31/23 17:17 08/31/23 18:02 08/31/23 18:20 Temperature 100 F H Temperature Source Oral Pulse Rate 104 H 100 Respiratory Rate 20 H 16 Respiratory Effort Respiratory Pattern Blood Pressure 75/48 L 91/57 L Blood Pressure Mean 57 68 Blood Pressure Source Blood Pressure Position Blood Pressure Location Pulse Ox 94 96 98 Oxygen Delivery Method Room Air Room Air Room Air 08/31/23 19:00 08/31/23 20:00 08/31/23 20:08 Temperature 99.1 F 99.2 F H 99.2 F H Temperature Source Oral Oral Oral Pulse Rate 91 90 94 Respiratory Rate 14 16 14 Respiratory Effort Respiratory Pattern Blood Pressure 82/52 L 86/49 L 86/49 L Blood Pressure Mean 62 61 61 Blood Pressure Source Monitor Blood Pressure Position Semi-Fowlers Blood Pressure Location Left Arm Pulse Ox 95 97 97 Oxygen Delivery Method Room Air Room Air Room Air Weight Weight: 99 lb 6.856 oz Body Mass Index (BMI) 17.0 Physical Exam Const alert, oriented x3 and no apparent distress HEENT normocephalic and head/scalp atraumatic Resp normal respiratory effort Cardio regular rate GI soft to palpation; Negative for non-distended Palpation: tender RLQ (Equivocal rebound, voluntary guarding) Extremity no clubbing, cyanosis or edema Skin no rashes or lesions noted Neuro CN's II-XII intact bilaterally Psych mental status grossly normal Results Lab / Micro Data 09/01/23 03:45 09/01/23 03:45 Labs: Laboratory Results - last 24 hr 08/31/23 17:30: WBC 13.2 H, RBC 2.45 L, Hgb 7.3 L, Hct 22.8 L, MCV 93.1, MCH 29.8, MCHC 32.0, RDW Std Deviation 44.5 H, RDW Coeff of Yury 13.1, Plt Count 355, MPV 9.1, Immature Gran % (Auto) 0.400, Neut % (Auto) 79.2 H, Lymph % (Auto) 5.4 L, [place] % (Auto) 14.3 H, Eos % (Auto) 0.4, Baso % (Auto) 0.3, Absolute Neuts (auto) 10.5 H, Absolute Lymphs (auto) 0.71 L, Nucleated RBC % 0, Differential Comment SCANNED, Diff Path Review July, PT 17.3 H, INR 1.4, APTT 33.8, S odium 134 L, Potassium 3.0 L, Chloride 101, Carbon Dioxide 27.0, Anion Gap 6, BUN 13, Creatinine 0.54 L, Estim Creat Clear Calc 74.93, Est GFR (MDRD) Af Amer 147, Est GFR (MDRD) Non-Af 121, BUN/Creatinine Ratio 24.2 H, Glucose 173 H, Lactic Acid 1.2, Calcium 7.9 L, Total Bilirubin 0.20, AST 51 H, ALT 19, Alkaline Phosphatase 85, Total Protein 5.7 L, Albumin 1.6 L, Globulin 4.1, A lbumin/Globulin Ratio 0.4 L, Valproic Acid 92 08/31/23 17:36: Urine Color Yellow, Urine Clarity Clear, Urine pH 6.5, Ur Specific [place] 1.010, Urine Protein 15 H, Urine Glucose (UA) Normal, Urine Ketones 15 H, Urine Occult Blood 25 H, Urine Nitrite Negative, Urine Bilirubin 1 H, Urine Urobilinogen 8 H, Ur Leukocyte Esterase Negative, Urine RBC 0 SEEN, Urine WBC 0 SEEN, Ur Squamous Epith Cells 0 SEEN, Urine Bacteria 1+, Urine Mucus 0 SEEN Micro: Microbiology 08/31/23 17:50 Mucosa - Nose SARS-CoV-2, Influenza & RSV (PCR) - Final Imaging Radiology Impression Chest X-Ray 08/31/23 18:20 IMPRESSION: No acute findings in the chest. Electronically Signed: Ilya Everett MD at 18:51 EDT , Abdomen/Pelvis CT 08/31/23 19:18 IMPRESSION: Enlarged appendix compatible with 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. There is a peripherally enhancing fluid collection in the right lower quadrant abutting against the terminal ileum compatible with a periappendiceal abscess. There is no free air identified. There is free fluid in the pelvis. Electronically Signed: Ilya Everett MD at 19:41 EDT , ADDENDUM: 08/31/232000 IMPRESSION: Enlarged appendix compatible with 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. There is a peripherally enhancing fluid collection in the right lower quadrant abutting against the terminal ileum compatible with a periappendiceal abscess. There is no free air identified. There is free fluid in the pelvis. N.B. : The above Results were Read Back by Ilya Everett MD to Shanice Swann MD, and understanding confirmed on 08/31/2023 19:54:56 (ET). Electronically Signed: Ilya Everett MD at 19:41 EDT , Assessment & Plan Assessment/Plan (1) Acute 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 with appendiceal abscess: (2) Hypotension: QUALIFIERS: Hypotension type: unspecified hypotension type Q ualified Code(s): I95.9 - Hypotension, unspecified (3) Anemia: (4) Hypokalemia: PLAN: Plan Plan admit patient to the ICU due to hypotension and fever. Patient's blood pressure per her is normally systolically 97. Currently she is 87. Will keep on IV antibiotics and plan for percutaneous drain by IR tomorrow. If unable to place drain by IR could do surgical placement of a drain. Also discussed with patient and her sister that if patient did not improve clinically we could need to do an ileocecectomy as I would be unable to just do an appendectomy as I cannot really identify the appendix and also with all the inflammation likely the tissue would not stay together. Patient and her sister had no further question this time. [facility] consult medicine appreciate their assistance. Cecily Rudd M.D. Pager: [phone] [facility] [address] [place] [address], [facility], [address] [place] [id number] Office: [phone] Charges/Coding Visit Charges Inpatient E&M: 88537 Init Hosp L3
--- NOTE | 2023-08-31 20:36 | PCM.CONS.GEN ---
Assessment & Plan Assessment/Plan (1) Acute 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 with appendiceal abscess: (2) Hypotension: QUALIFIERS: Hypotension type: unspecified hypotension type Qualified Code(s): I95.9 - Hypotension, unspecified (3) Anemia: QUALIFIERS: Anemia type: unspecified type Qualified Code(s): D64.9 - Anemia, unspecified (4) Severe malnutrition: (5) Weakness: PLAN: Plan 1. CT scan of the abdomen/pelvis revealing a peripherally enhancing low-density in collection in the Right lower quadrant that measures ~5 cm x ~3.6 cm by ~3.2 cm suspicious for an abscess abutting against the terminal ileum with appendix enlarged and measuring ~2.4 cm compatible with 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 with suspected appendiceal abscess with no free air identified compounded by hypotension with blood pressure 86/49 mmHg present on admission prompting decision to place her in the ICU with concern for possible sepsis with fever of 101.6 F with leukocytosis of 13.2 present on admission - Admit to ICU. Continue broad-spectrum antibiotics with IV Zosyn and await culture and sensitivity data. Serialize lactates. Keep strict NPO and give Protonix 40 mg IV daily plus prn IV Zofran for nausea and vomiting. Patient has no absolute contraindications to medically necessary medium risk general surgery with plan right now for percutaneous drainage at IR in the AM. 2. Mild Hypokalemia of 3 mmol/L present on admission complicating #1 - Give supplemental IV KCl and then recheck level in the AM to ensure improvement. 3. Significant pfchi-od-xmmyedh anemia with hemoglobin of 7.3 g/dL present on admission compounding #1 & #2 - Type and Screen blood and transfuse for hemoglobin < 7 g/dL. 4. Recent admission here from August 24, 2023 to August 25, 2023 for treatment of seizure with valproic acid toxicity and hypotension in the setting of chronic severe protein-calorie malnutrition adding to the pathology of #1 - #3 - Noted. Check prealbumin. Check valproic acid level and convert to IV. Clinical dietitian to consult in the AM on-rounds for further recommendations with help appreciated in advance. 5. Seizure disorder; on Depakote followed by Dr. Maci Reid of neurology at [facility] - Noted. 6. History of depression with anxiety - Patient may require therapy as she is not on anything at this time and her declining health status and poor oral intake add to the complexity of her case and may hamper recovery. 7. History of alcohol abuse (sober since 2020) - Noted. Check Lafe UDS and MICHELET. 8. History of cannabis abuse - Noted. 9. Hyponatremia - Stable with serum sodium of 134 mmol/L present on admission. 10. IBS - Stable. 11. Osteoarthritis; status post total shoulder replacement - Noted. 12. DVT prophylaxis - SCD's only. Total time: Approximately 60 minutes. Update: Patient had a recheck of her CBC around 11:00 PM that revealed her hemoglobin dropped to 6.6 g/dL so a transfusion of 1 unit of PRBC's was ordered. HPI Consult Data Date of Consult: 09/01/23 Attending Care Provider: Dr. Rudd HPI Narrative Reason for Consultation: Fever and Generalized Weakness. HPI Narrative: MICK KOCH, is a 63 F with a past medical history of seizure disorder; on Depakote followed by Dr. Maci Reid of neurology at [facility], history of depression with anxiety, history of alcohol abuse (sober since 2020), history of cannabis abuse, chronic anemia, history of hyponatremia, IBS, history of chronic severe protein calorie malnutrition, osteoarthritis; status post total shoulder replacement and recent admission here from August 24, 2023 to August 25, 2023 for treatment of seizure with valproic acid toxicity and hypotension who re-presents to [facility] ER complaining of generalized weakness. Ms. Koch had family members come in from out of town and they noted that she was very unsteady on her feet with generalized weakness of the activated EMS so she can be brought in for further evaluation and treatment. Upon arrival patient was noted to have a fever of 101.6 ?F but patient was unaware that she had a fever. She admits to generalized weakness with ambulatory dysfunction but she denies abdominal pain, nausea, vomiting, diarrhea, constipation or blood in stools and she claims to have been taking her decreased dose of Depakote as prescribed. Her normal blood pressure is in the 97 mmHg range and she states she is only eating ~2 Telugu muffins daily. In the ER she was noted to have a leukocytosis of 13.2 K present on admission complicated by hemoglobin of 7.3 g/dL and hypokalemia of 3 mmol/L present on admission with CT scan of the abdomen/pelvis revealing a peripherally enhancing low-density in collection in the Right lower quadrant that measures ~5 cm x ~3.6 cm by ~3.2 cm suspicious for an abscess abutting against the terminal ileum with appendix enlarged and measuring ~2.4 cm compatible with 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 with suspected appendiceal abscess with no free air identified compounded by hypotension with blood pressure 86/49 mmHg present on admission prompting decision to place her in the ICU. The hospitalist service was then consulted to assist with medical management due to this patient's complexity and recent admission. [facility] Medical History Alcohol dependence Marijuana abuse ETOH abuse IBS (irritable bowel syndrome) Anxiety Depression Seizure Home Medications ?Medication ?Instructions ?Recorded ?Last Taken ?Type clonazepam 0.25 mg disintegrating 0.25 mg PO PRN PRN Seizures 10/10/19 Unknown History tablet divalproex 250 mg tablet,extended 750 mg (3 x 250 mg) PO BID #180 08/25/23 Unknown Rx release 24 hr (Depakote ER) tabs lacosamide 100 mg tablet 100 mg PO BID #60 tabs 08/25/23 Unknown Rx Allergy/AdvReac Type Severity Reaction Status Date / Time erythromycin base Allergy TONGUE Verified 08/31/23 17:17 HALIMA Family History Sister Melanoma Father Prostate CA Surgical History Status post total shoulder replacement Shoulder joint replacement status Social History household members: none housing: apartment Smoking Status: Former smoker alcohol intake: former year quit: 2020 substance use type: marijuana ROS ROS Narrative Review of systems: General: Patient had confirmed fever in the ER with complaints of generalized weakness as per HPI but she denies chills. HENT: Denies headache, denies stuffy nose, denies sore throat EYES: Denies changes in vision or discharge from eyes. Resp: Denies cough, denies shortness of breath Cardiac: Denies chest pain, palpitations or heart racing. GI: Denies abdominal pain, denies changes in bowel, denies nausea or vomiting. : Denies changes in urination Extremity: Denies swelling Musculoskeletal: Feels somewhat generally weak and unwell with generalized weakness and unsteady gait as per HPI. Neuro: Patient denies headache, paresthesias or focal neurologic weakness. Heme: Denies any bleeding or bruising Skin: Denies rashes Psychiatric: No complaints voiced related to uncontrolled depression or anxiety. Endocrine: No polyuria, polydipsia or polyphagia. The rest of the 14 point ROS was negative except for positives in HPI. Physical Exam Const alert, oriented x3, no apparent distress and average body habitus General Appearance: cooperative HEENT normocephalic, head/scalp atraumatic and hearing grossly normal bilaterally HEENT Narrative: Mucous membranes dry with poor dentition noted. Eyes PERRL and EOMs intact bilaterally Neck no lymphadenopathy and supple Resp normal respiratory effort, no retractions, no use of accessory muscles and clear to auscultation bilaterally Cardio regular rate and regular rhythm GI normal to inspection, nondistended, normoactive bowel sounds, soft to palpation, non-tender and non-distended Extremity normal to inspection, full ROM and no clubbing, cyanosis or edema Skin Skin Narrative: Patient has no evidence of jaundice or rash. Neuro oriented x3, CN's II-XII intact bilaterally, moves all extremities and no focal motor deficits Sensorium / Orientation: awake, alert, oriented to person, oriented to place and oriented to time Speech: speech normal Psych affect normal Medical Records Data Attestation: I reviewed the patient's medical records Lab / Micro Data Attestation: I reviewed the patient's lab results. 09/01/23 03:45 09/01/23 03:45 Labs: Laboratory Results - last 24 hr 08/31/23 17:30: WBC 13.2 H, RBC 2.45 L, Hgb 7.3 L, Hct 22.8 L, MCV 93.1, MCH 29.8, MCHC 32.0, RDW Std Deviation 44.5 H, RDW Coeff of Yury 13.1, Plt Count 355, MPV 9.1, Immature Gran % (Auto) 0.400, Neut % (Auto) 79.2 H, Lymph % (Auto) 5.4 L, [place] % (Auto) 14.3 H, Eos % (Auto) 0.4, Baso % (Auto) 0.3, Absolute Neuts (auto) 10.5 H, Absolute Lymphs (auto) 0.71 L, Nucleated RBC % 0, Differential Comment SCANNED, Diff Path Review July foll, PT 17.3 H, INR 1.4, APTT 33.8, Sodium 134 L, Potassium 3.0 L, Chloride 101, Carbon Dioxide 27.0, Anion Gap 6, BUN 13, Creatinine 0.54 L, Estim Creat Clear Calc 74.93, Est GFR (MDRD) Af Amer 147, Est GFR (MDRD) Non-Af 121, BUN/Creatinine Ratio 24.2 H, Glucose 173 H, Lactic Acid 1.2, Calcium 7.9 L, Total Bilirubin 0.20, AST 51 H, ALT 19, Alkaline Phosphatase 85, Total Protein 5.7 L, Albumin 1.6 L, Globulin 4.1, Albumin/Globulin Ratio 0.4 L, Valproic Acid 92 08/31/23 17:36: Urine Color Yellow, Urine Clarity Clear, Urine pH 6.5, Ur Specific [place] 1.010, Urine Protein 15 H, Urine Glucose (UA) Normal, Urine Ketones 15 H, Urine Occult Blood 25 H, Urine Nitrite Negative, Urine Bilirubin 1 H, Urine Urobilinogen 8 H, Ur Leukocyte Esterase Negative, Urine RBC 0 SEEN, Urine WBC 0 SEEN, Ur Squamous Epith Cells 0 SEEN, Urine Bacteria 1+, Urine Mucus 0 SEEN Micro: Microbiology 08/31/23 17:50 Mucosa - Nose SARS-CoV-2, Influenza & RSV (PCR) - Final Imaging Radiology Impression Chest X-Ray 08/31/23 18:20 IMPRESSION: No acute findings in the chest. Electronically Signed: Ilya Everett MD at 18:51 EDT , Abdomen/Pelvis CT 08/31/23 19:18 IMPRESSION: Enlarged appendix compatible with 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. There is a peripherally enhancing fluid collection in the right lower quadrant abutting against the terminal ileum compatible with a periappendiceal abscess. There is no free air identified. There is free fluid in the pelvis. Electronically Signed: Ilya Everett MD at 19:41 EDT , ADDENDUM: 08/31/232000 IMPRESSION: Enlarged appendix compatible with 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. There is a peripherally enhancing fluid collection in the right lower quadrant abutting against the terminal ileum compatible with a periappendiceal abscess. There is no free air identified. There is free fluid in the pelvis. N.B. : The above Results were Read Back by Ilya Everett MD to Shanice Swann MD, and understanding confirmed on 08/31/2023 19:54:56 (ET). Electronically Signed: Ilya Everett MD at 19:41 EDT , Sepsis Attestation Sepsis Attestation: Agree w/Sepsis Date exam was performed: 08/31/23 Time exam was performed: 21:00 Possible Source of Sepsis: GI tract/intra-abdominal Sepsis Organ Dysfunction Criteria Present: SBP < 90 mmHg or MAP < 65 mmHg Fluid Resuscitation Fluid resuscitation indicated?: Yes Fluid Resuscitation ordered: 30 ml/kg fluid bolus ordered Amount of fluid ordered: 2 Sepsis Note Date exam was performed: 09/01/23 Time exam was performed: 01:00 Sepsis Attestation: Sepsis re-evaluation was performed Response to fluids: Non Fluid responsive hypotension Charges/Coding Visit Charges Office Visits / Consults: 56886 IP Consult L4
--- NOTE | 2023-08-31 21:33 | ED.RN ---
report called to [facility].
[2023-08-31 22:05] LABS: Magnesium 1.7 mg/dL (1.6-2.6)
[2023-08-31] MEDS: Valproate Sodium 500 MG in Dextrose 5%-Water (50mL Bag) 50 ML 50 MG IV (22:30)
[2023-08-31 23:01] LABS: Absolute Lymphocyte Count 1.07 X10^3/uL (0.83-4.51); Absolute Neutrophil Count 8.1 X10^3/uL (2.0-7.7); Basophil# 0.03 X10^3/uL; Basophil% 0.3 % (0-1); Eosinophil# 0.05 X10^3/uL; Eosinophils% 0.5 % (0-5); Hematocrit 20.5 % (37-47); Hemoglobin 6.6 g/dL (12.0-15.0); Lymphocyte # 1.07 X10^3/ul (0.83-4.51); Lymphocyte % 9.9 % (19-41); Mean Corp Hgb Conc 32.2 g/dL (32-36); Mean Corpuscular Volume 93.2 fL (81-99); Monocyte# 1.49 X10^3/uL; Monocyte% 13.8 % (0-10); NRBC Flagged by Analyzer 0 % (0-5); Neutrophil # 8.11 X10^3/uL (2.7-7.7); Neutrophil % 75.2 % (47-70); Platelet Count 330 K/mm3 (150-450); RBC Distribution Width CV 13.2 % (11.6-14.6); RBC Distribution Width SD 44.9 fl (35.1-43.9); White Blood Count 10.8 K/mm3 (4.4-11.0)
[2023-08-31] MEDS: 0.9% Normal Saline (1000mL) 1,000 ML 130 ML IV (23:14)
[2023-08-31 23:16] LABS: Alcohol, Blood (Medical)-Serum < 3.0 mg/dL
[2023-08-31 23:21] LABS: Lactic Acid 0.9 mmol/L (0.4-1.9)
[2023-08-31 23:22] LABS: Vitamin B12 743 pg/mL (211-911)
[2023-08-31 23:25] LABS: Amphetamine Urine VISTA NEGATIVE (<1000 ng/mL); Barbiturate Urine VISTA NEGATIVE (< 200 ng/mL); Benzodiazepine Urine VISTA NEGATIVE (< 200 ng/mL); Cocaine Urine VISTA NEGATIVE (< 300 ng/mL); Ecstacy Urine VISTA NEGATIVE (< 500 ng/mL); Methadone Urine VISTA NEGATIVE (< 300 ng/mL); PCP Urine VISTA NEGATIVE (< 25 ng/mL); THC Urine VISTA POSITIVE (< 50 ng/mL); Vista UDS pH Range 6
[2023-08-31] MEDS: Albumin Human 25% (100 mL) 25 GM/100 ML BAG IV (23:48)
[2023-09-01] VITALS (47 sets, daily range): BP systolic 74–95; BP diastolic 47–76; PULSE 70–93; RESP 11–28; TEMP 36.2–36.9; O2SAT 92–100; BMI 17.1
--- NOTE | 2023-09-01 | FLU_PTH ---
PATIENT: MICK KOCH LOC: MS3 U#:[id number] AGE/SX: 63/F [place]OM: [facility] [place]08/31/[address]: Dr. Trip Juan DO : 1960 BED: 1 DIS: 09/05/2023 SPEC #: [id number] RECD: 09/01/23 11:06 STATUS: OLVIN RELuis Daniel #: [id number] VERO: 09/01/23 00:[address]: Cecily Rudd DEPT: CYTOLOGY RECD BY: Arpit Ortiz ENTERED: 09/01/23 13:14 SP TYPE: Fluid OTHR DR: DO Dr. Doni Denis MD [facility] [place] Tissues: Abdomen, NOS Procedures: Special Stain Group II Surgery Specimen Level IV Cytospin Fluid HEADER OPERATION: Ct guided drain- myah appendicular abscess PRE-OP DIAGNOSIS: Myah-appendicular abscess TISSUE SUBMITTED: Myah-appendicular abscess DIAGNOSIS CYTOLOGY Myah-appendicular abscess fluid (cytospin and cellblock): Negative for malignant cells. Acute inflammation and abscess formation. See comment. NIKHIL/ 09/04/2023 COMMENT Clinical correlation and appropriate follow up are necessary. CYTOLOGY STUDY Slides are reviewed. CYTOLOGY GROSS Received is 30 ml of cloudy-greenish fluid with red clots labeled with the patient's name and and designated per the requisition as Myah-appendicular abscess. Submitted for cytology preparation including cell block. Mr 09/01/2023 TC:2 CPT: 65516,12267
[2023-09-01 03:55] LABS: Absolute Lymphocyte Count 1.05 X10^3/uL (0.83-4.51); Absolute Neutrophil Count 6.4 X10^3/uL (2.0-7.7); Basophil# 0.03 X10^3/uL; Basophil% 0.3 % (0-1); Eosinophil# 0.12 X10^3/uL; Eosinophils% 1.4 % (0-5); Lymphocyte # 1.05 X10^3/ul (0.83-4.51); Lymphocyte % 11.9 % (19-41); Mean Corp Hgb Conc 31.6 g/dL (32-36); Monocyte# 1.18 X10^3/uL; Monocyte% 13.3 % (0-10); NRBC Flagged by Analyzer 0 % (0-5); Neutrophil # 6.44 X10^3/uL (2.7-7.7); Neutrophil % 72.8 % (47-70); Platelet Count 275 K/mm3 (150-450); RBC Distribution Width CV 13.2 % (11.6-14.6); RBC Distribution Width SD 46.3 fl (35.1-43.9); White Blood Count 8.9 K/mm3 (4.4-11.0)
[2023-09-01 04:19] LABS: AST(SGOT) 20 U/L (15-37); Alanine Aminotransfer ALT/SGPT 14 U/L (13-56); Albumin, Serum 1.9 g/dL (3.2-5.0); Alkaline Phosphatase 56 U/L (45-117); Anion Gap 6 (5-15); BUN 9 mg/dL (7-18); BUN/Creat Ratio 23.6 RATIO (10-20); Bilirubin, Direct 0.09 mg/dL (0.00-0.30); Calcium,Total 7.3 mg/dL (8.5-10.1); Chloride 110 mmol/L (98-107); Creatinine, Serum 0.38 mg/dL (0.55-1.02); EST Glomerular Filtration Rate 180 mL/min (>60); Est Glom Filt Rate - Afr Amer 218 mL/min (>60); Estimated Creatinine Clearance 106.72 ml/min; Globulin 3.1 g/dL (2.2-4.2); Glucose 98 mg/dL (74-106); Magnesium 1.7 mg/dL (1.6-2.6); Phosphorus 2.9 mg/dL (2.5-4.9); Potassium 3.6 mmol/L (3.5-5.1); Sodium Level 140 mmol/L (136-145)
[2023-09-01] MEDS: Valproate Sodium 500 MG in Dextrose 5%-Water (50mL Bag) 50 ML 50 MG IV ×3 (05:15→21:12)
[2023-09-01] MEDS: Piperacil/Tazobactam 3.375 GM in 0.9% Normal Saline (50mL MB+) 50 ML IV ×3 (05:52→21:11)
--- NOTE | 2023-09-01 06:54 | PN.SURG_ITS ---
Subjective Subjective Patient continues to be hypotensive patient's hemoglobin did drop to 6.0 currently getting 1 unit packed red blood cells will have a total of 2. Patient still denies abdominal pain but does have some discomfort on exam. Plan for CT- guided drain of the abscess. Objective Data Objective Data Vital Signs: Vital Signs Temp Pulse Resp BP Pulse Ox O2 Del Method 97.5 F L 75 27 H 76/51 L 99 Room Air 09/01/23 05:15 09/01/23 06:00 09/01/23 06:00 09/01/23 06:00 09/01/23 06:00 09/01/23 06:00 Oxygen Delivery Method Room Air Weight: 99 lb 10.383 oz Body Mass Index (BMI) 17.1 Intake & Output: Intake and Output for Last 24 Hours 08/30/23 08/31/23 09/01/23 23:59 23:59 23:59 Intake Total 2105 / 2105 0 / 0 Output Total 700 / 700 Balance 2105 / 2105 -700 / -700 Lab / Micro Data 09/01/23 03:45 09/01/23 03:45 Labs: Laboratory Results - last 24 hr 08/31/23 17:30: WBC 13.2 H, RBC 2.45 L, Hgb 7.3 L, Hct 22.8 L, MCV 93.1, MCH 29.8, MCHC 32.0, RDW Std Deviation 44.5 H, RDW Coeff of Yury 13.1, Plt Count 355, MPV 9.1, Immature Gran % (Auto) 0.400, Neut % (Auto) 79.2 H, Lymph % (Auto) 5.4 L, [place] % (Auto) 14.3 H, Eos % (Auto) 0.4, Baso % (Auto) 0.3, Absolute Neuts (auto) 10.5 H, Absolute Lymphs (auto) 0.71 L, Nucleated RBC % 0, Differential Comment SCANNED, Diff Path Review July foll, PT 17.3 H, INR 1.4, APTT 33.8, S odium 134 L, Potassium 3.0 L, Chloride 101, Carbon Dioxide 27.0, Anion Gap 6, BUN 13, Creatinine 0.54 L, Estim Creat Clear Calc 74.93, Est GFR (MDRD) Af Amer 147, Est GFR (MDRD) Non-Af 121, BUN/Creatinine Ratio 24.2 H, Glucose 173 H, Lactic Acid 1.2, Calcium 7.9 L, Magnesium 1.7, Total Bilirubin 0.20, AST 51 H, ALT 19, Alkaline Phosphatase 85, Total Protein 5.7 L, Albumin 1.6 L, Globulin 4.1, Albumin/Globulin Ratio 0.4 L, Valproic Acid 92 08/31/23 17:36: Urine Color Yellow, Urine Clarity Clear, Urine pH 6.5, Ur Specific [place] 1.010, Urine Protein 15 H, Urine Glucose (UA) Normal, Urine Ketones 15 H, Urine Occult Blood 25 H, Urine Nitrite Negative, Urine Bilirubin 1 H, Urine Urobilinogen 8 H, Ur Leukocyte Esterase Negative, Urine RBC 0 SEEN, Urine WBC 0 SEEN, Ur Squamous Epith Cells 0 SEEN, Urine Bacteria 1+, Urine Mucus 0 SEEN 08/31/23 22:40: WBC 10.8, RBC 2.20 L, Hgb 6.6 L, Hct 20.5 L, MCV 93.2, MCH 30.0, MCHC 32.2, RDW Std Deviation 44.9 H, RDW Coeff of Yury 13.2, Plt Count 330, MPV 9.0, Immature Gran % (Auto) 0.300, Neut % (Auto) 75.2 H, Lymph % (Auto) 9.9 L, M maru % (Auto) 13.8 H, Eos % (Auto) 0.5, Baso % (Auto) 0.3, Absolute Neuts (auto) 8.1 H, Absolute Lymphs (auto) 1.07, Nucleated RBC % 0, Lactic Acid 0.9, Ammonia 43.0 H, Vitamin B12 743, Cortisol 14.40, Ethyl Alcohol < 3.0, Blood Type B POSITIVE, Antibody Screen NEGATIVE, Crossmatch See Detail 08/31/23 22:45: Urine Opiates Screen NEGATIVE, Urine Methadone Screen NEGATIVE, Ur Barbiturates Screen NEGATIVE, Ur Phencyclidine Scrn NEGATIVE, Ur Amphetamines Screen NEGATIVE, MDMA (Ecstasy) Screen NEGATIVE, U Benzodiazepines Scrn NEGATIVE, Urine Cocaine Screen NEGATIVE, U Cannabinoids Screen POSITIVE H, Ur Drug Screen Comment 09/01/23 03:45: WBC 8.9, RBC 2.00 L, Hgb 6.0 L*, Hct 19.0 L, MCV 95.0, MCH 30.0, MCHC 31.6 L, RDW Std Deviation 46.3 H, RDW Coeff of Yury 13.2, Plt Count 275, MPV 9.0, Immature Gran % (Auto) 0.300, Neut % (Auto) 72.8 H, Lymph % (Auto) 11.9 L, [place] % (Auto) 13.3 H, Eos % (Auto) 1.4, Baso % (Auto) 0.3, Absolute Neuts (auto) 6.4, Absolute Lymphs (auto) 1.05, Nucleated RBC % 0, Sodium 140, Potassium 3.6, Chloride 110 H, Carbon Dioxide 24.0, Anion Gap 6, BUN 9, Creatinine 0.38 L, Estim Creat Clear Calc 106.72, Est GFR (MDRD) Af Amer 218, Est GFR (MDRD) Non-Af 180, BUN/Creatinine Ratio 23.6 H, Glucose 98, Calcium 7.3 L, Phosphorus 2.9, Magnesium 1.7, Total Bilirubin 0.20, Direct Bilirubin 0.09, AST 20, ALT 14, Alkaline Phosphatase 56, Total Protein 5.0 L, Albumin 1.9 L, Globulin 3.1 Micro: Microbiology 08/31/23 17:50 Mucosa - Nose SARS-CoV-2, Influenza & RSV (PCR) - Final Radiography Diagnostic Testing: Radiology Impression Chest X-Ray 08/31/23 18:20 IMPRESSION: No acute findings in the chest. Electronically Signed: Ilya Everett MD at 18:51 EDT , Abdomen/Pelvis CT 08/31/23 19:18 IMPRESSION: Enlarged appendix compatible with 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. There is a peripherally enhancing fluid collection in the right lower quadrant abutting against the terminal ileum compatible with a periappendiceal abscess. There is no free air identified. There is free fluid in the pelvis. Electronically Signed: Ilya Everett MD at 19:41 EDT , ADDENDUM: 08/31/232000 IMPRESSION: Enlarged appendix compatible with 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. There is a peripherally enhancing fluid collection in the right lower quadrant abutting against the terminal ileum compatible with a periappendiceal abscess. There is no free air identified. There is free fluid in the pelvis. N.B. : The above Results were Read Back by Ilya Everett MD to Shanice Swann MD, and understanding confirmed on 08/31/2023 19:54:56 (ET). Electronically Signed: Ilya Everett MD at 19:41 EDT , Physical Exam Const alert, oriented x3 and no apparent distress Resp normal respiratory effort Cardio regular rate GI soft to palpation; Negative for non-distended Palpation: tender RLQ (Equivocal rebound, voluntary guarding) Psych mental status grossly normal Assessment & Plan Assessment/Plan (1) Acute 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 with appendiceal abscess: (2) Hypotension: QUALIFIERS: Hypotension type: unspecified hypotension type Q ualified Code(s): I95.9 - Hypotension, unspecified (3) Anemia: (4) Hypokalemia: PLAN: Plan Continue n.p.o./IV fluids Anemia?getting 1 unit packed red blood cells currently will plan for a total of 2. Hypotension continue IV antibiotics will give additional albumin if does not improve with the blood. Plan for CT-guided drain by IR today [facility] appreciate hospitalist assistance with medical management. Addendum: Patient did have a drain placed in be right lower quadrant with 40 cc of purulent material he obtained. However on repeat CT for drain placement there is noted to be a larger collection subhepatic lady of fluid. Will plan for drain placement in this area as well as cannot rule out abscess. Discussed with radiologist who was agreeable to place. Cecily Rudd M.D. Pager: [phone] [facility] [address] [place] [address], Outpatient [facility], [address] [place] [address] Office: [phone] Charges/Coding Multi Select Codes Visit Charges Visit Charges: 13989 Subs Hosp L3
--- NOTE | 2023-09-01 07:14 | PN.HOSP_ITS ---
Reason for Visit Reason for Visit: Diagnoses Anemia, unspecified (08/31/23) Unspecified severe protein-calorie malnutrition (08/31/23) Hypokalemia (08/31/23) Hypotension, unspecified (08/31/23) Acute 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 with perforation, localized peritonitis, and gangrene, with abscess (08/31/23) Weakness (08/31/23) Subjective Subjective Patient is a 63-year-old lady who presented with progressive generalized weakness with abdominal pain. Patient was found to be hypotensive and febrile in the ED CT of the abdomen and pelvis obtained did demonstrate a peripherally enhancing low-density in collection in the Right lower quadrant that measures ~5 cm x ~3.6 cm by ~3.2 cm suspicious for an abscess abutting against the terminal ileum with appendix enlarged and measuring ~2.4 cm compatible with 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 with suspected appendiceal abscess with no free air. Subsequently admitted to the intensive care unit Objective Data Objective Data Vital Signs: Vital Signs Temp Pulse Resp BP Pulse Ox O2 Del Method 97.5 F L 75 27 H 76/51 L 99 Room Air 09/01/23 05:15 09/01/23 06:00 09/01/23 06:00 09/01/23 06:00 09/01/23 06:00 09/01/23 06:00 Oxygen Delivery Method Room Air Weight: 45.2 kg Body Mass Index (BMI) 17.1 Intake & Output: Intake and Output for Last 24 Hours 08/30/23 08/31/23 09/01/23 23:59 23:59 23:59 Intake Total 2105 / 2105 0 / 0 Output Total 700 / 700 Balance 2105 / 2105 -700 / -700 Lab / Micro Data 09/01/23 03:45 09/01/23 03:45 Labs: Laboratory Results - last 24 hr 08/31/23 17:30: WBC 13.2 H, RBC 2.45 L, Hgb 7.3 L, Hct 22.8 L, MCV 93.1, MCH 29.8, MCHC 32.0, RDW Std Deviation 44.5 H, RDW Coeff of Yury 13.1, Plt Count 355, MPV 9.1, Immature Gran % (Auto) 0.400, Neut % (Auto) 79.2 H, Lymph % (Auto) 5.4 L, [place]ven % (Auto) 14.3 H, Eos % (Auto) 0.4, Baso % (Auto) 0.3, Absolute Neuts (auto) 10.5 H, Absolute Lymphs (auto) 0.71 L, Nucleated RBC % 0, Differential Comment SCANNED, Diff Path Review July, PT 17.3 H, INR 1.4, APTT 33.8, S odium 134 L, Potassium 3.0 L, Chloride 101, Carbon Dioxide 27.0, Anion Gap 6, BUN 13, Creatinine 0.54 L, Estim Creat Clear Calc 74.93, Est GFR (MDRD) Af Amer 147, Est GFR (MDRD) Non-Af 121, BUN/Creatinine Ratio 24.2 H, Glucose 173 H, Lactic Acid 1.2, Calcium 7.9 L, Magnesium 1.7, Total Bilirubin 0.20, AST 51 H, ALT 19, Alkaline Phosphatase 85, Total Protein 5.7 L, Albumin 1.6 L, Globulin 4.1, Albumin/Globulin Ratio 0.4 L, Valproic Acid 92 08/31/23 17:36: Urine Color Yellow, Urine Clarity Clear, Urine pH 6.5, Ur Specific [place] 1.010, Urine Protein 15 H, Urine Glucose (UA) Normal, Urine Ketones 15 H, Urine Occult Blood 25 H, Urine Nitrite Negative, Urine Bilirubin 1 H, Urine Urobilinogen 8 H, Ur Leukocyte Esterase Negative, Urine RBC 0 SEEN, Urine WBC 0 SEEN, Ur Squamous Epith Cells 0 SEEN, Urine Bacteria 1+, Urine Mucus 0 SEEN 08/31/23 22:40: WBC 10.8, RBC 2.20 L, Hgb 6.6 L, Hct 20.5 L, MCV 93.2, MCH 30.0, MCHC 32.2, RDW Std Deviation 44.9 H, RDW Coeff of Yury 13.2, Plt Count 330, MPV 9.0, Immature Gran % (Auto) 0.300, Neut % (Auto) 75.2 H, Lymph % (Auto) 9.9 L, M maru % (Auto) 13.8 H, Eos % (Auto) 0.5, Baso % (Auto) 0.3, Absolute Neuts (auto) 8.1 H, Absolute Lymphs (auto) 1.07, Nucleated RBC % 0, Lactic Acid 0.9, Ammonia 43.0 H, Vitamin B12 743, Cortisol 14.40, Ethyl Alcohol < 3.0, Blood Type B POSITIVE, Antibody Screen NEGATIVE, Crossmatch See Detail 08/31/23 22:45: Urine Opiates Screen NEGATIVE, Urine Methadone Screen NEGATIVE, Ur Barbiturates Screen NEGATIVE, Ur Phencyclidine Scrn NEGATIVE, Ur Amphetamines Screen NEGATIVE, MDMA (Ecstasy) Screen NEGATIVE, U Benzodiazepines Scrn NEGATIVE, Urine Cocaine Screen NEGATIVE, U Cannabinoids Screen POSITIVE H, Ur Drug Screen Comment 09/01/23 03:45: WBC 8.9, RBC 2.00 L, Hgb 6.0 L*, Hct 19.0 L, MCV 95.0, MCH 30.0, MCHC 31.6 L, RDW Std Deviation 46.3 H, RDW Coeff of Yury 13.2, Plt Count 275, MPV 9.0, Immature Gran % (Auto) 0.300, Neut % (Auto) 72.8 H, Lymph % (Auto) 11.9 L, Craven % (Auto) 13.3 H, Eos % (Auto) 1.4, Baso % (Auto) 0.3, Absolute Neuts (auto) 6.4, Absolute Lymphs (auto) 1.05, Nucleated RBC % 0, Sodium 140, Potassium 3.6, Chloride 110 H, Carbon Dioxide 24.0, Anion Gap 6, BUN 9, Creatinine 0.38 L, Estim Creat Clear Calc 106.72, Est GFR (MDRD) Af Amer 218, Est GFR (MDRD) Non-Af 180, BUN/Creatinine Ratio 23.6 H, Glucose 98, Calcium 7.3 L, Phosphorus 2.9, Magnesium 1.7, Total Bilirubin 0.20, Direct Bilirubin 0.09, AST 20, ALT 14, Alkaline Phosphatase 56, Total Protein 5.0 L, Albumin 1.9 L, Globulin 3.1 Micro: Microbiology 08/31/23 17:50 Mucosa - Nose SARS-CoV-2, Influenza & RSV (PCR) - Final Radiography Diagnostic Testing: Radiology Impression Chest X-Ray 08/31/23 18:20 IMPRESSION: No acute findings in the chest. Electronically Signed: Ilya Everett MD at 18:51 EDT , Abdomen/Pelvis CT 08/31/23 19:18 IMPRESSION: Enlarged appendix compatible with 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. There is a peripherally enhancing fluid collection in the right lower quadrant abutting against the terminal ileum compatible with a periappendiceal abscess. There is no free air identified. There is free fluid in the pelvis. Electronically Signed: Ilya Everett MD at 19:41 EDT , ADDENDUM: 08/31/232000 IMPRESSION: Enlarged appendix compatible with 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. There is a peripherally enhancing fluid collection in the right lower quadrant abutting against the terminal ileum compatible with a periappendiceal abscess. There is no free air identified. There is free fluid in the pelvis. N.B. : The above Results were Read Back by Ilya Everett MD to Shanice Swann MD, and understanding confirmed on 08/31/2023 19:54:56 (ET). Electronically Signed: Ilya Everett MD at 19:41 EDT , Physical Exam Narrative GENERAL: cooperative HEENT: Atraumatic; normocephalic EYES; Anicteric, Normal Conjunctiva NECK; supple, normal thyroid, RESPIRATORY: Diminished to auscultation CARDIOVASCULAR: Regular S1 S2, GI: soft, normoactive bowel sounds, RLQ tenderness : No Renal angle tenderness; EXTREMITIES: No edema, no clubbing, MUSCULOSKELETAL: no muscle wasting NEURO: Awake; no lateralizing signs. SKIN: No Rash PSYCH; Flat affect Assessment & Plan Assessment/Plan (1) Acute 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 with appendiceal abscess: (2) Hypotension: QUALIFIERS: Hypotension type: unspecified hypotension type Q ualified Code(s): I95.9 - Hypotension, unspecified (3) Anemia: QUALIFIERS: Anemia type: unspecified type Qualified Code(s): D 64.9 - Anemia, unspecified (4) Severe malnutrition: (5) Weakness: PLAN: Plan Patient is a 63-year-old lady who presented with progressive generalized weakness with abdominal pain. Patient was found to be hypotensive and febrile in the ED CT of the abdomen and pelvis obtained did demonstrate a peripherally enhancing low-density in collection in the Right lower quadrant that measures ~5 cm x ~3.6 cm by ~3.2 cm suspicious for an abscess abutting against the terminal ileum with appendix enlarged and measuring ~2.4 cm compatible with 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 with suspected appendiceal abscess with no free air. Subsequently admitted to the intensive care unit 1. Suspected appendiceal abscess ? Patient admitted to the intensive care unit started on broad-spectrum antibiotic therapy General surgery on board 2. Hypotension ?. Patient blood pressure chronically low. Systolic blood pressure from her recent previous admission was in the 80s. Resuscitated with IV fluids. Ordered random cortisol level. 3. Anemia ? Did order iron studies as well as stool guaiac with patient hemoglobin being 6 and order was given for patient to be transfused 1 unit PRBC. Subsequently monitoring H&H with plans to transfuse if patient is deemed to be symptomatic or hemoglobin stays below 7 4. Hypokalemia -Corrected per protocol repeat labs ordered in a.m. 5. Seizure disorder ? Patient is on Depakote as well as lacosamide, continued 6. Severe protein calorie malnutrition ? Chronic and as evidenced by suboptimal energy intake, weight loss and physical changes consult placed to dietitian 7. Mild hyponatremia ? Will monitor 8. Osteoarthritis ? With history of left reverse shoulder arthroplasty on 11/06/2019 9. Depression with anxiety ? Stable 10. DVT prophylaxis ? Avoided chemoprophylaxis given patient's low hemoglobin level Time spent in the patient's overall evaluation,decision-making process, review of diagnostic data, adjustment of management, discussion with other providers, nursing nursing and ancillary staff involved in patient's care documentation, 55 Minutes Advance planning; did discuss with the patient regarding advanced directives as well as CODE STATUS. Did explain the various scenarios involved ( FULL CODE, DNR CCA, DNR CCA with no intubation, and DNR CC and what each meant) patient elected to remain full code with CPR and intubation if needed. Order was placed. Time spent on discussion 16 minutes. Charges/Coding Visit Charges Inpatient E&M: 00411 Subs Hosp L3 Procedures Hospitalists Procedures: 05878 Advncd Care Plan 30 Min
[2023-09-01 07:53] LABS: Phosphorus 3.1 mg/dL (2.5-4.9)
[2023-09-01 08:33] LABS: Ferritin 197 ng/mL (8-252); Iron 16 ug/dL (50-170); Iron Binding Capacity,Total 100 ug/dL (250-450)
[2023-09-01] MEDS: 0.9% Normal Saline (250mL Bag) 250 ML 15 ML IV (08:36)
[2023-09-01] MEDS: 0.9% Normal Saline (1000mL) 1,000 ML 130 ML IV ×3 (08:36→21:13)
[2023-09-01] MEDS: Midazolam 2 MG/2 ML Syringe IV ×3 (10:25→10:43)
[2023-09-01] MEDS: fentaNYL 100 MCG/2 ML Ampul IV ×2 (10:26→10:43)
[2023-09-01] MEDS: Lidocaine 2% (20 ml mdv) 20 ML Vial INFILT ×2 (10:38→11:35)
--- NOTE | 2023-09-01 10:54 | PCM.OP.PRO ---
Procedure Report Date of Procedure: 09/01/23 Assessment & Plan Assessment/Plan (1) Acute 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 with appendiceal abscess: PLAN: PROCEDURE: CT DIRECTED ABSCESS DRAINAGE, periappendicular ORDERING PROVIDER: Dr. Rudd INDICATION: Female, 63 years old. Appendiceal abscess. PROVIDER: Mary Bazan APRN-NETWORK TECHNICIAN CONSENT: Written informed consent was obtained having explained the risks, benefits and alternatives in detail with the patient who accepted the risks and agreed to proceed. Laboratory review and clinical assessment was performed. PRE-PROCEDURE SEDATION ASSESSMENT: Current history and physical dictated by referring physician and reviewed. No clinical changes since date of exam. Patient has an ASA Class of 3. PROCEDURAL SEDATION PROTOCOL: The Drugs used were: 2 mg Versed, IV, and 50 mcg Fentanyl, IV. The sedation time was: 25 minutes, starting at 1025 and terminated at 1050. The procedural sedation protocol was independently monitored by the department nurse. RADIATION DOSAGE (If Supplied By Facility): CTDIvol = 9.94 mGy, DLP = 443.76 mGycm Individualized dose optimization techniques were used for this CT. CONSENT: Written informed consent was obtained having explained the risks, benefits and alternatives in detail with the patient who accepted the risks and agreed to proceed. Laboratory review and clinical assessment was performed. TECHNIQUE: CT sections were made through the abdomen and pelvis revealing an abscess in the periappendicular area. The skin surface was prepped and draped in a sterile fashion. Puncture of this collection was performed with a 8 Greek catheter and fluid was aspirated. Drainage catheter was then inserted into the collection and formed into position. Additional fluid was aspirated for a total of approximately 40 cc of green purulent colored fluid. The catheter was secured with a stay fix dressing to allow for continued drainage. Followup CT sections reveals good position of the catheter. IMPRESSION: Successful CAT scan guided drainage of periappendicular abscess. Procedures Radiology Radiology CT Procedures: [id number] Image guided catheter drainage
--- NOTE | 2023-09-01 11:13 | CT_ITS ---
STUDY: CT-GUIDED DRAINAGE OF THE HEPATIC FLUID REASON FOR EXAM: Female, 63 years old. Subhepatic fluid collection -- new from this AM CT for other drain placement RADIATION DOSAGE (If Supplied By Facility): CTDIvol = ( 9.94 ) mGy, DLP = ( 588.61 ) mGycm. Individualized dose optimization techniques were used for this CT.? TECHNIQUE: Under direct CT guidance, a 5 Welsh catheter was placed into the perihepatic fluid collection. 40 cc of a marisol-colored fluid was aspirated. COMPARISON: Comparison is made with prior study done earlier today. CT/CT Guidance Abscess Drg w/Cath IMPRESSION: Drainage of the perihepatic fluid with removal of 40 cc of marisol-colored fluid. The fluid was sent to the laboratory for analysis. Electronically Signed: Nael Thomas MD at 12:58 EDT ,
[2023-09-01 11:50] LABS: Pathologist Review Reviewed
[2023-09-01] MEDS: Pantoprazole Sodium 40 MG in 0.9% Normal Saline (100mL MB+) 100 ML 330 MG IV (12:12)
--- NOTE | 2023-09-01 14:06 | CASEMGMT ---
RN CM Face to Face with patient for initial transition planning/care coordination assessment. RN CM introduced self and role at [facility]. Patient lying in bed, alert and oriented, sister at bedside. Patient willing to participate in assessment and is able to answer all questions appropriately. Care providers, pharmacy, and demographics verified. PCP: Sarah Portillo Specialists: Neurologist at [facility] Preferred Pharmacy: [facility] Insurance: [facility] Prescription Benefit: yes Living Will/HPOA: yes, friend Calli Alfaro LNOK: sister, friend Living Arrangements: Patient lives alone in a 2 story home with bed and bath on first floor, steps and railing to enter the home. Patient states she is independent at home. Transportation:self, friends DME/HHC: Patient has shower chair, BSC, grab bars. No previous HHC or SNF. Patient wishes to discharge home, will monitor progress with therapy for needs, evals pending. Patient states he has no further needs or concerns at this time. CM to follow for discharge planning needs that may arise. Disposition Plan: TBD, anticipate HHC pending therapy evals. CM to continue to monitor. Johanna WELLSN, RN, CM
[2023-09-01 15:16] LABS: Hematocrit 29.6 % (37-47); Hemoglobin 9.7 g/dL (12.0-15.0)
[2023-09-01] MEDS: Albumin Human 25% (100 mL) 25 GM/100 ML BAG IV (18:26)
[2023-09-02] VITALS (26 sets, daily range): BP systolic 76–98; BP diastolic 45–64; PULSE 63–76; RESP 12–28; TEMP 36.1–36.6; O2SAT 93–100; BMI 17.9
[2023-09-02 04:16] LABS: Absolute Lymphocyte Count 0.97 X10^3/uL (0.83-4.51); Basophil# 0.02 X10^3/uL; Basophil% 0.4 % (0-1); Eosinophil# 0.13 X10^3/uL; Eosinophils% 2.3 % (0-5); Hematocrit 27.9 % (37-47); Lymphocyte # 0.97 X10^3/ul (0.83-4.51); Lymphocyte % 17.4 % (19-41); Mean Corp Hgb Conc 32.3 g/dL (32-36); Mean Corpuscular Hgb 29.2 pg (27.0-32.0); Mean Corpuscular Volume 90.6 fL (81-99); Mean Platelet Vol. 8.6 fl (6.2-12.0); Monocyte% 7.2 % (0-10); NRBC Flagged by Analyzer 0 % (0-5); Neutrophil # 4.04 X10^3/uL (2.7-7.7); Neutrophil % 72.3 % (47-70); Platelet Count 241 K/mm3 (150-450); RBC Distribution Width CV 15.8 % (11.6-14.6); RBC Distribution Width SD 51.5 fl (35.1-43.9); Red Blood Count 3.08 M/mm3 (4.2-5.4); White Blood Count 5.6 K/mm3 (4.4-11.0)
[2023-09-02 04:47] LABS: Anion Gap 5 (5-15); BUN 7 mg/dL (7-18); BUN/Creat Ratio 15.4 RATIO (10-20); Calcium,Total 7.4 mg/dL (8.5-10.1); Chloride 113 mmol/L (98-107); Creatinine, Serum 0.46 mg/dL (0.55-1.02); EST Glomerular Filtration Rate 147 mL/min (>60); Est Glom Filt Rate - Afr Amer 177 mL/min (>60); Estimated Creatinine Clearance 92.65 ml/min; Glucose 84 mg/dL (74-106); Magnesium 1.5 mg/dL (1.6-2.6); Phosphorus 3.2 mg/dL (2.5-4.9); Potassium 3.2 mmol/L (3.5-5.1); Sodium Level 141 mmol/L (136-145)
[2023-09-02] MEDS: Piperacil/Tazobactam 3.375 GM in 0.9% Normal Saline (50mL MB+) 50 ML IV ×3 (05:33→21:14)
[2023-09-02] MEDS: Valproate Sodium 500 MG in Dextrose 5%-Water (50mL Bag) 50 ML 50 MG IV ×3 (05:33→21:12)
--- NOTE | 2023-09-02 06:41 | PCM.PN.SRG ---
Subjective Subjective Patient reports she still having pain. She denies nausea or vomiting. She says she is not passing gas. Denies fevers or chills. Objective Data Objective Data Vital Signs: Vital Signs Temp Pulse Resp BP Pulse Ox O2 Del Method O2 Flow Rate 97.4 F L 68 23 H 94/62 96 Room Air 2 09/02/23 04:00 09/02/23 06:00 09/02/23 06:00 09/02/23 06:00 09/02/23 06:00 09/02/23 06:00 09/01/23 15:00 Oxygen Flow Rate (L/min) 2 Oxygen Delivery Method Room Air Weight: 104 lb 11.513 oz Body Mass Index (BMI) 17.9 Intake & Output: Intake and Output for Last 24 Hours 08/31/23 09/01/23 09/02/23 23:59 23:59 23:59 Intake Total 2105 / 2105 3577.17 / 3577.17 50 / 50 Output Total 1150 / 1150 450 / 450 Balance 2105 / 2105 2427.17 / 2427.17 -400 / -400 Lab / Micro Data 09/02/23 04:00 09/02/23 04:00 Labs: Laboratory Results - last 24 hr 08/31/23 17:30: Diff Path Review Reviewed 08/31/23 22:40: Crossmatch See Detail 08/31/23 22:40: Crossmatch See Detail 09/01/23 03:45: Phosphorus 3.1, Iron 16 L, TIBC 100 L, Iron Saturation 16.0, Ferritin 197 09/01/23 07:50: Cortisol 21.30 09/01/23 15:00: Hgb 9.7 L, Hct 29.6 L 09/02/23 04:00: WBC 5.6, RBC 3.08 L, Hgb 9.0 L, Hct 27.9 L, MCV 90.6, MCH 29.2, MCHC 32.3, RDW Std Deviation 51.5 H, RDW Coeff of Yury 15.8 H, Plt Count 241, MPV 8.6, Immature Gran % (Auto) 0.400, Neut % (Auto) 72.3 H, Lymph % (Auto) 17.4 L, [place] % (Auto) 7.2, Eos % (Auto) 2.3, Baso % (Auto) 0.4, Absolute Neuts (auto) 4.0, Absolute Lymphs (auto) 0.97, Nucleated RBC % 0, Sodium 141, Potassium 3.2 L, Chloride 113 H, Carbon Dioxide 23.0, Anion Gap 5, BUN 7, Creatinine 0.46 L, Estim Creat Clear Calc 92.65, Est GFR (MDRD) Af Amer 177, Est GFR (MDRD) Non-Af 147, BUN/Creatinine Ratio 15.4, Glucose 84, Calcium 7.4 L, Phosphorus 3.2, Magnesium 1.5 L Micro: Microbiology 09/01/23 08:15 Stool Stool Occult Blood (LINDA) - Final Occult Blood Positive 08/31/23 17:50 Mucosa - Nose SARS-CoV-2, Influenza & RSV (PCR) - Final Radiography Diagnostic Testing: Radiology Impression Abscess Drainage CT 09/01/23 11:13 IMPRESSION: Drainage of the perihepatic fluid with removal of 40 cc of marisol-colored fluid. The fluid was sent to the laboratory for analysis. Electronically Signed: Nael Thomas MD at 12:58 EDT , Physical Exam Const oriented x3 and no apparent distress Resp normal respiratory effort GI soft to palpation Palpation: tender Assessment & Plan Assessment/Plan (1) Acute 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 with appendiceal abscess: PLAN: Patient's hemoglobin appears to be stable. She is still hypotensive which may be close to her baseline. She is still having pain and not passing much gas. Continue clears until she is having more substantial bowel function. White count is normal. Continue antibiotics. Drain is seropurulent. Tristen Cueva MD Pager: [facility] [address] [place] [address], [address] [place] [address] Office:
[2023-09-02] MEDS: 0.9% Normal Saline (1000mL) 1,000 ML 130 ML IV ×3 (07:25→19:45)
[2023-09-02] MEDS: Pantoprazole Sodium 40 MG in 0.9% Normal Saline (100mL MB+) 100 ML 330 MG IV (07:26)
--- NOTE | 2023-09-02 07:34 | PCM.PN.HOSP ---
Reason for Visit Reason for Visit: Diagnoses Anemia, unspecified (08/31/23) Unspecified severe protein-calorie malnutrition (08/31/23) Hypokalemia (08/31/23) Hypotension, unspecified (08/31/23) Acute 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 with perforation, localized peritonitis, and gangrene, with abscess (08/31/23) Weakness (08/31/23) Subjective Subjective Patient underwent Successful CAT scan guided drainage of periappendicular abscess by IR on 09/01/2023. Diagnostic data reviewed significant for hypomagnesemia and anemia. Objective Data Objective Data Vital Signs: Vital Signs Temp Pulse Resp BP Pulse Ox O2 Del Method O2 Flow Rate 97.4 F L 66 23 H 87/58 L 93 Room Air 2 09/02/23 04:00 09/02/23 07:00 09/02/23 07:00 09/02/23 07:00 09/02/23 07:00 09/02/23 07:00 09/01/23 15:00 Oxygen Flow Rate (L/min) 2 Oxygen Delivery Method Room Air Weight: 47.5 kg Body Mass Index (BMI) 17.9 Intake & Output: Intake and Output for Last 24 Hours 08/31/23 09/01/23 09/02/23 23:59 23:59 23:59 Intake Total 2105 / 2105 3577.17 / 3577.17 1455 / 1455 Output Total 1150 / 1150 450 / 450 Balance 2105 / 2105 2427.17 / 2427.17 1005 / 1005 Lab / Micro Data 09/02/23 04:00 09/02/23 04:00 Labs: Laboratory Results - last 24 hr 08/31/23 17:30: Diff Path Review Reviewed 08/31/23 22:40: Crossmatch See Detail 08/31/23 22:40: Crossmatch See Detail 09/01/23 03:45: Phosphorus 3.1, Iron 16 L, TIBC 100 L, Iron Saturation 16.0, Ferritin 197 09/01/23 07:50: Cortisol 21.30 09/01/23 15:00: Hgb 9.7 L, Hct 29.6 L 09/02/23 04:00: WBC 5.6, RBC 3.08 L, Hgb 9.0 L, Hct 27.9 L, MCV 90.6, MCH 29.2, MCHC 32.3, RDW Std Deviation 51.5 H, RDW Coeff of Yury 15.8 H, Plt Count 241, MPV 8.6, Immature Gran % (Auto) 0.400, Neut % (Auto) 72.3 H, Lymph % (Auto) 17.4 L, [place] % (Auto) 7.2, Eos % (Auto) 2.3, Baso % (Auto) 0.4, Absolute Neuts (auto) 4.0, Absolute Lymphs (auto) 0.97, Nucleated RBC % 0, Sodium 141, Potassium 3.2 L, Chloride 113 H, Carbon Dioxide 23.0, Anion Gap 5, BUN 7, Creatinine 0.46 L, Estim Creat Clear Calc 92.65, Est GFR (MDRD) Af Amer 177, Est GFR (MDRD) Non-Af 147, BUN/Creatinine Ratio 15.4, Glucose 84, Calcium 7.4 L, Phosphorus 3.2, Magnesium 1.5 L Micro: Microbiology 09/01/23 08:15 Stool Stool Occult Blood (LINDA) - Final Occult Blood Positive 08/31/23 17:50 Mucosa - Nose SARS-CoV-2, Influenza & RSV (PCR) - Final Radiography Diagnostic Testing: Radiology Impression Abscess Drainage CT 09/01/23 11:13 IMPRESSION: Drainage of the perihepatic fluid with removal of 40 cc of marisol-colored fluid. The fluid was sent to the laboratory for analysis. Electronically Signed: Nael Thomas MD at 12:58 EDT Reading Location ID and State: [facility] / [place] , Service support , Physical Exam Narrative GENERAL: cooperative HEENT: Atraumatic; normocephalic EYES; Anicteric, Normal Conjunctiva NECK; supple, normal thyroid, RESPIRATORY: Diminished to auscultation CARDIOVASCULAR: Regular S1 S2, GI: soft, normoactive bowel sounds, RLQ tenderness : No Renal angle tenderness; EXTREMITIES: No edema, no clubbing, MUSCULOSKELETAL: no muscle wasting NEURO: Awake; no lateralizing signs. SKIN: No Rash PSYCH; Flat affect Assessment & Plan Assessment/Plan (1) Acute 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 with appendiceal abscess: (2) Hypotension: QUALIFIERS: Hypotension type: unspecified hypotension type Qualified Code(s): I95.9 - Hypotension, unspecified (3) Anemia: QUALIFIERS: Anemia type: unspecified type Qualified Code(s): D64.9 - Anemia, unspecified (4) Severe malnutrition: (5) Weakness: PLAN: Plan Patient is a 63-year-old lady who presented with progressive generalized weakness with abdominal pain. Patient was found to be hypotensive and febrile in the ED CT of the abdomen and pelvis obtained did demonstrate a peripherally enhancing low-density in collection in the Right lower quadrant that measures ~5 cm x ~3.6 cm by ~3.2 cm suspicious for an abscess abutting against the terminal ileum with appendix enlarged and measuring ~2.4 cm compatible with 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 with suspected appendiceal abscess with no free air. Subsequently admitted to the intensive care unit 1. Suspected appendiceal abscess ? Patient admitted to the intensive care unit started on broad-spectrum antibiotic therapy General surgery on board -09/02/2019 patient underwent Successful CAT scan guided drainage of periappendicular abscess by IR on 09/01/2023. 2. Hypotension ?. Patient blood pressure chronically low. Systolic blood pressure from her recent previous admission was in the 80s. Resuscitated with IV fluids. Ordered random cortisol level. ? 09/02/2023 patient random cortisol level was within normal limit 21.30 3. Anemia ? Did order iron studies as well as stool guaiac with patient hemoglobin being 6 and order was given for patient to be transfused 1 unit PRBC. Subsequently monitoring H&H with plans to transfuse if patient is deemed to be symptomatic or hemoglobin stays below 7 ? 09/02/2023 patient hemoglobin up to 9.0 his stool guaiac came back positive. Iron studies consistent with iron deficiency anemia. Patient will need endoscopic evaluation both upper and lower will defer decision to general surgery. 4. Hypokalemia -Corrected per protocol repeat labs ordered in a.m. ? 09/02/2023; potassium still low at 3.2 additional replacement given 5. Seizure disorder ? Patient is on Depakote as well as lacosamide, continued 6. Severe protein calorie malnutrition ? Chronic and as evidenced by suboptimal energy intake, weight loss and physical changes consult placed to dietitian 7. Mild hyponatremia ? Will monitor 8. Osteoarthritis ? With history of left reverse shoulder arthroplasty on 11/06/2019 9. Depression with anxiety ? Stable 10. DVT prophylaxis ? Avoided chemoprophylaxis given patient's low hemoglobin level Time spent in the patient's overall evaluation,decision-making process, review of diagnostic data, adjustment of management, discussion with other providers, nursing nursing and ancillary staff involved in patient's care documentation, 50 Minutes Charges/Coding Visit Charges Inpatient E&M: 58144 Subs Hosp L3
[2023-09-02] MEDS: Potassium Chloride Oral Tablet 20 MEQ 40 MEQ PO (09:09)
[2023-09-02] MEDS: Acetaminophen 325 MG Tablet 650 MG PO (19:48)
[2023-09-03] VITALS (15 sets, daily range): BP systolic 75–121; BP diastolic 53–93; PULSE 55–69; RESP 14–23; TEMP 36.1–36.9; O2SAT 93–99; BMI 18.9
[2023-09-03] MEDS: 0.9% Saline Lock 10 ML Syringe IV (04:29)
[2023-09-03] MEDS: 0.9% Normal Saline (1000mL) 1,000 ML 130 ML IV (04:30)
[2023-09-03 04:32] LABS: Absolute Lymphocyte Count 1.31 X10^3/uL (0.83-4.51); Absolute Neutrophil Count 4.2 X10^3/uL (2.0-7.7); Basophil# 0.05 X10^3/uL; Basophil% 0.8 % (0-1); Eosinophil# 0.24 X10^3/uL; Eosinophils% 3.8 % (0-5); Hematocrit 37.6 % (37-47); Hemoglobin 11.8 g/dL (12.0-15.0); Lymphocyte # 1.31 X10^3/ul (0.83-4.51); Lymphocyte % 20.8 % (19-41); Mean Corp Hgb Conc 31.4 g/dL (32-36); Mean Corpuscular Hgb 28.8 pg (27.0-32.0); Mean Corpuscular Volume 91.7 fL (81-99); Monocyte# 0.46 X10^3/uL; Monocyte% 7.3 % (0-10); NRBC Flagged by Analyzer 0 % (0-5); Neutrophil # 4.21 X10^3/uL (2.7-7.7); Neutrophil % 66.8 % (47-70); Platelet Count 306 K/mm3 (150-450); RBC Distribution Width CV 15.5 % (11.6-14.6); RBC Distribution Width SD 51.9 fl (35.1-43.9); White Blood Count 6.3 K/mm3 (4.4-11.0)
[2023-09-03 04:44] LABS: Anion Gap 4 (5-15); BUN 7 mg/dL (7-18); BUN/Creat Ratio 13.1 RATIO (10-20); Calcium,Total 8.4 mg/dL (8.5-10.1); Chloride 115 mmol/L (98-107); Creatinine, Serum 0.54 mg/dL (0.55-1.02); EST Glomerular Filtration Rate 122 mL/min (>60); Est Glom Filt Rate - Afr Amer 148 mL/min (>60); Estimated Creatinine Clearance 78.92 ml/min; Glucose 74 mg/dL (74-106); Magnesium 1.6 mg/dL (1.6-2.6); Phosphorus 3.1 mg/dL (2.5-4.9); Potassium 2.9 mmol/L (3.5-5.1); Sodium Level 142 mmol/L (136-145)
[2023-09-03] MEDS: Valproate Sodium 500 MG in Dextrose 5%-Water (50mL Bag) 50 ML 50 MG IV (05:52)
[2023-09-03] MEDS: Piperacil/Tazobactam 3.375 GM in 0.9% Normal Saline (50mL MB+) 50 ML IV ×3 (05:53→21:47)
[2023-09-03] MEDS: Potassium Chloride Oral Tablet 20 MEQ 60 MEQ PO (06:35)
[2023-09-03] MEDS: Acetaminophen 325 MG Tablet 650 MG PO ×3 (06:38→21:55)
--- NOTE | 2023-09-03 07:12 | PCM.PN.HOSP ---
Reason for Visit Reason for Visit: Diagnoses Anemia, unspecified (08/31/23) Unspecified severe protein-calorie malnutrition (08/31/23) Hypokalemia (08/31/23) Hypotension, unspecified (08/31/23) Acute 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 with perforation, localized peritonitis, and gangrene, with abscess (08/31/23) Weakness (08/31/23) Subjective Subjective Patient seen pain improving. Cultures from patient's appendiceal abscess so far positive for GNR lactose start up specialist and Beta streptococcus Objective Data Objective Data Vital Signs: Vital Signs Temp Pulse Resp BP Pulse Ox O2 Del Method O2 Flow Rate 97 F L 59 L 17 99/63 97 Room Air 2 09/03/23 05:59 09/03/23 05:59 09/03/23 05:59 09/03/23 05:59 09/03/23 05:59 09/03/23 05:59 09/01/23 15:00 Oxygen Flow Rate (L/min) 2 Oxygen Delivery Method Room Air Weight: 50 kg Body Mass Index (BMI) 18.9 Intake & Output: Intake and Output for Last 24 Hours 09/01/23 09/02/23 09/03/23 23:59 23:59 23:59 Intake Total 3577.17 / 3577.17 3684.16 / 3684.16 1052.67 / 1052.67 Output Total 1150 / 1150 750 / 750 205 / 205 Balance 2427.17 / 2427.17 2934.16 / 2934.16 847.67 / 847.67 Lab / Micro Data 09/03/23 04:26 09/03/23 04:26 Labs: Laboratory Results - last 24 hr 09/03/23 04:26: WBC 6.3, RBC 4.10 L, Hgb 11.8 L, Hct 37.6, MCV 91.7, MCH 28.8, MCHC 31.4 L, RDW Std Deviation 51.9 H, RDW Coeff of Yury 15.5 H, Plt Count 306, MPV 9.0, Immature Gran % (Auto) 0.500, Neut % (Auto) 66.8, Lymph % (Auto) 20.8, [place] % (Auto) 7.3, Eos % (Auto) 3.8, Baso % (Auto) 0.8, Absolute Neuts (auto) 4.2, Absolute Lymphs (auto) 1.31, Nucleated RBC % 0, Sodium 142, Potassium 2.9 L, Chloride 115 H, Carbon Dioxide 23.0, Anion Gap 4 L, BUN 7, Creatinine 0.54 L, Estim Creat Clear Calc 78.92, Est GFR (MDRD) Af Amer 148, Est GFR (MDRD) Non-Af 122, BUN/Creatinine Ratio 13.1, Glucose 74, Calcium 8.4 L, Phosphorus 3.1, Magnesium 1.6 Micro: Microbiology 09/01/23 12:08 Aspirate - Abdominal Gram Stain - Preliminary 09/01/23 12:08 Aspirate - Abdominal Wound Culture - Preliminary GNR lactose start up specialist Beta streptococcus 09/01/23 11:14 Pelvic Abcess Gram Stain - Final 09/01/23 11:14 Pelvic Abcess Wound Culture - Preliminary No growth-Final to follow 08/31/23 17:36 Urine, Clean Catch Urine Culture - Preliminary Culture exhibits no growth. 09/01/23 08:15 Stool Stool Occult Blood (LINDA) - Final Occult Blood Positive 08/31/23 17:50 Mucosa - Nose SARS-CoV-2, Influenza & RSV (PCR) - Final Physical Exam Narrative GENERAL: cooperative HEENT: Atraumatic; normocephalic EYES; Anicteric, Normal Conjunctiva NECK; supple, normal thyroid, RESPIRATORY: Diminished to auscultation CARDIOVASCULAR: Regular S1 S2, GI: soft, normoactive bowel sounds, RLQ tenderness : No Renal angle tenderness; EXTREMITIES: No edema, no clubbing, MUSCULOSKELETAL: no muscle wasting NEURO: Awake; no lateralizing signs. SKIN: No Rash PSYCH; Flat affect Assessment & Plan Assessment/Plan (1) Acute 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 with appendiceal abscess: (2) Hypotension: QUALIFIERS: Hypotension type: unspecified hypotension type Qualified Code(s): I95.9 - Hypotension, unspecified (3) Anemia: QUALIFIERS: Anemia type: unspecified type Qualified Code(s): D64.9 - Anemia, unspecified (4) Severe malnutrition: (5) Weakness: PLAN: Plan Patient is a 63-year-old lady who presented with progressive generalized weakness with abdominal pain. Patient was found to be hypotensive and febrile in the ED CT of the abdomen and pelvis obtained did demonstrate a peripherally enhancing low-density in collection in the Right lower quadrant that measures ~5 cm x ~3.6 cm by ~3.2 cm suspicious for an abscess abutting against the terminal ileum with appendix enlarged and measuring ~2.4 cm compatible with 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 with suspected appendiceal abscess with no free air. Subsequently admitted to the intensive care unit 1. Suspected appendiceal abscess ? Patient admitted to the intensive care unit started on broad-spectrum antibiotic therapy General surgery on board -09/02/2023 patient underwent Successful CAT scan guided drainage of periappendicular abscess by IR on 09/01/2023. -09/03/2023;Patient seen pain improving. Cultures from patient's appendiceal abscess so far positive for GNR lactose start up specialist and Beta streptococcus 2. Hypotension ?. Patient blood pressure chronically low. Systolic blood pressure from her recent previous admission was in the 80s. Resuscitated with IV fluids. Ordered random cortisol level. ? 09/02/2023 patient random cortisol level was within normal limit 21.30 3. Anemia ? Did order iron studies as well as stool guaiac with patient hemoglobin being 6 and order was given for patient to be transfused 1 unit PRBC. Subsequently monitoring H&H with plans to transfuse if patient is deemed to be symptomatic or hemoglobin stays below 7 ? 09/02/2023 patient hemoglobin up to 9.0 his stool guaiac came back positive. Iron studies consistent with iron deficiency anemia. Patient will need endoscopic evaluation both upper and lower will defer decision to general surgery. 4. Hypokalemia -Corrected per protocol repeat labs ordered in a.m. ? 09/02/2023; potassium still low at 3.2 additional replacement given 5. Seizure disorder ? Patient is on Depakote as well as lacosamide, continued 6. Severe protein calorie malnutrition ? Chronic and as evidenced by suboptimal energy intake, weight loss and physical changes consult placed to dietitian 7. Mild hyponatremia ? Will monitor 8. Osteoarthritis ? With history of left reverse shoulder arthroplasty on 11/06/2019 9. Depression with anxiety ? Stable 10. DVT prophylaxis ? Avoided chemoprophylaxis given patient's low hemoglobin level Time spent in the patient's overall evaluation,decision-making process, review of diagnostic data, adjustment of management, discussion with other providers, nursing nursing and ancillary staff involved in patient's care documentation, 36 Minutes Charges/Coding Visit Charges Inpatient E&M: 33630 Subs Hosp L2
[2023-09-03] MEDS: Pantoprazole Sodium 40 MG in 0.9% Normal Saline (100mL MB+) 100 ML 330 MG IV (07:40)
--- NOTE | 2023-09-03 08:20 | PN.SURG_ITS ---
Subjective Subjective Patient reports she still having right lower quadrant pain. Denies nausea or vomiting or fevers or chills. Objective Data Objective Data Vital Signs: Vital Signs Temp Pulse Resp BP Pulse Ox O2 Del Method O2 Flow Rate 97 F L 64 16 94/69 95 Room Air 2 09/03/23 05:59 09/03/23 08:00 09/03/23 08:00 09/03/23 08:00 09/03/23 08:00 09/03/23 08:00 09/01/23 15:00 Oxygen Flow Rate (L/min) 2 Oxygen Delivery Method Room Air Weight: 110 lb 3.698 oz Body Mass Index (BMI) 18.9 Intake & Output: Intake and Output for Last 24 Hours 09/01/23 09/02/23 09/03/23 23:59 23:59 23:59 Intake Total 3577.17 / 3577.17 3684.16 / 3684.16 1217.67 / 1217.67 Output Total 1150 / 1150 750 / 750 205 / 205 Balance 2427.17 / 2427.17 2934.16 / 2934.16 1012.67 / 1012.67 Lab / Micro Data 09/03/23 04:26 09/03/23 04:26 Labs: Laboratory Results - last 24 hr 09/03/23 04:26: WBC 6.3, RBC 4.10 L, Hgb 11.8 L, Hct 37.6, MCV 91.7, MCH 28.8, M CHC 31.4 L, RDW Std Deviation 51.9 H, RDW Coeff of Yury 15.5 H, Plt Count 306, MPV 9.0, Immature Gran % (Auto) 0.500, Neut % (Auto) 66.8, Lymph % (Auto) 20.8, [place] % (Auto) 7.3, Eos % (Auto) 3.8, Baso % (Auto) 0.8, Absolute Neuts (auto) 4.2, Absolute Lymphs (auto) 1.31, Nucleated RBC % 0, Sodium 142, Potassium 2.9 L , Chloride 115 H, Carbon Dioxide 23.0, Anion Gap 4 L, BUN 7, Creatinine 0.54 L, Estim Creat Clear Calc 78.92, Est GFR (MDRD) Af Amer 148, Est GFR (MDRD) Non-Af 122, BUN/Creatinine Ratio 13.1, Glucose 74, Calcium 8.4 L, Phosphorus 3.1, Magnesium 1.6 Micro: Microbiology 09/01/23 11:14 Pelvic Abcess Gram Stain - Final 09/01/23 11:14 Pelvic Abcess Wound Culture - Preliminary No growth-Final to follow 09/01/23 11:14 Pelvic Abcess Anaerobic Culture - Preliminary 09/01/23 12:08 Aspirate - Abdominal Gram Stain - Preliminary 09/01/23 12:08 Aspirate - Abdominal Wound Culture - Preliminary GNR lactose diploma pharmacy technician Beta streptococcus 09/01/23 12:08 Aspirate - Abdominal Anaerobic Culture - Preliminary No growth in 48 hours. 08/31/23 17:36 Urine, Clean Catch Urine Culture - Preliminary Culture exhibits no growth. 09/01/23 08:15 Stool Stool Occult Blood (LINDA) - Final Occult Blood Positive 08/31/23 17:50 Mucosa - Nose SARS-CoV-2, Influenza & RSV (PCR) - Final Physical Exam Const oriented x3 and no apparent distress Resp normal respiratory effort GI soft to palpation Inspection: Negative for abdominal distention Palpation: tender Assessment & Plan Assessment/Plan (1) Acute 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 with appendiceal abscess: PLAN: The patient reports she is still having some pain in the right lower quadrant. She has had several bowel movements. She denies nausea or vomiting or fevers or chills. I will try regular diet as she feels that she is hungry. Continue antibiotics and continue JONEL drain. JONEL is seropurulent. Tristen Cueva MD Pager: [facility] [address] [place] [address], [address] [place] [address] Office:
[2023-09-03] MEDS: 0.9% Normal Saline (1000mL) 1,000 ML 60 ML IV ×2 (09:31→18:07)
[2023-09-03] MEDS: Potassium Chloride 10mEq/100mL 10 MEQ/100 ML IV.SOLN. 100 MEQ IV BOLUS ×2 (09:31→11:58)
[2023-09-03] MEDS: Lacosamide 100 MG Tablet PO ×2 (09:59→21:45)
[2023-09-03] MEDS: Divalproex (ER) 250 MG Tablet 750 MG PO ×2 (09:59→21:47)
[2023-09-03] MEDS: Potassium Chloride 10mEq/100mL 10 MEQ/100 ML IV.SOLN. 60 MEQ IV BOLUS ×2 (13:51→16:05)
[2023-09-03] MEDS: 0.9% Normal Saline (250mL Bag) 250 ML 15 ML IV (14:42)
[2023-09-04 04:25] VITALS: BMI 19.0
[2023-09-04 04:54] LABS: Absolute Lymphocyte Count 0.83 X10^3/uL (0.83-4.51); Absolute Neutrophil Count 3.2 X10^3/uL (2.0-7.7); Basophil# 0.02 X10^3/uL; Basophil% 0.4 % (0-1); Eosinophil# 0.19 X10^3/uL; Eosinophils% 4.2 % (0-5); Hematocrit 32.4 % (37-47); Hemoglobin 10.5 g/dL (12.0-15.0); Lymphocyte # 0.83 X10^3/ul (0.83-4.51); Lymphocyte % 18.4 % (19-41); Mean Corp Hgb Conc 32.4 g/dL (32-36); Mean Corpuscular Hgb 29.8 pg (27.0-32.0); Monocyte# 0.31 X10^3/uL; Monocyte% 6.9 % (0-10); NRBC Flagged by Analyzer 0 % (0-5); Neutrophil # 3.15 X10^3/uL (2.7-7.7); Neutrophil % 69.7 % (47-70); Platelet Count 238 K/mm3 (150-450); RBC Distribution Width CV 15.3 % (11.6-14.6); RBC Distribution Width SD 51.2 fl (35.1-43.9); Red Blood Count 3.52 M/mm3 (4.2-5.4); White Blood Count 4.5 K/mm3 (4.4-11.0)
[2023-09-04] MEDS: Piperacil/Tazobactam 3.375 GM in 0.9% Normal Saline (50mL MB+) 50 ML IV ×3 (05:26→21:35)
[2023-09-04 05:30] LABS: Anion Gap 3 (5-15); BUN 6 mg/dL (7-18); BUN/Creat Ratio 11.7 RATIO (10-20); Calcium,Total 7.6 mg/dL (8.5-10.1); Chloride 118 mmol/L (98-107); Creatinine, Serum 0.51 mg/dL (0.55-1.02); EST Glomerular Filtration Rate 129 mL/min (>60); Est Glom Filt Rate - Afr Amer 156 mL/min (>60); Estimated Creatinine Clearance 88.31 ml/min; Glucose 77 mg/dL (74-106); Magnesium 1.6 mg/dL (1.6-2.6); Phosphorus 2.8 mg/dL (2.5-4.9); Potassium 3.8 mmol/L (3.5-5.1); Sodium Level 140 mmol/L (136-145)
[2023-09-04 05:45] VITALS: BP 118/80; PULSE 65; RESP 16; TEMP 36.6; O2SAT 99
[2023-09-04] MEDS: Morphine 2 MG/ML Syringe IV (06:11)
--- NOTE | 2023-09-04 07:14 | CT_ITS ---
STUDY: CT ABDOMEN AND PELVIS WITH CONTRAST REASON FOR EXAM: Female, 63 years old. Perforated 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 follow up RADIATION DOSAGE (If Supplied By Facility): CTDIvol = ( 8.44 ) mGy, DLP = ( 333.59 ) mGycm TECHNIQUE: Transaxial images were obtained from the dome of the diaphragm to the symphysis pubis with oral contrast. Oral and amp; IV Gastrografin and amp; 100mL Isovue-300 was administered. Sagittal and coronal images were reconstructed. Individualized dose optimization techniques were used for this CT. COMPARISON: Comparison is made with prior study dated August 31, 2023. FINDINGS: There now is evidence of a small to moderate degree of bilateral pleural effusions with bibasilar atelectasis. Minimal pericardial thickening. There is decreased attenuation of the liver consistent with steatosis. Small amount of perihepatic fluid. Small amount of fluid is seen in the paracolic gutters as well as in the pelvis. Minimal pericholecystic fluid. Normal spleen. Normal pancreas. Normal bilateral adrenal glands. Normal right kidney. There is a 1.1 cm cyst in the anterior midportion of the left kidney. Normal visualized stomach. Normal small intestine. There are multiple colonic diverticula consistent with diverticulosis. A percutaneous drainage catheter seen in the right lower quadrant. The periappendiceal abscess has gotten smaller as compared to prior study. Mild residual changes persist. Normal abdominal aorta. Normal inferior vena cava. Normal retroperitoneum. Normal urinary bladder. Normal abdominal wall. Normal osseous structures. CT/Abdomen/Pelvis WITH Contrast IMPRESSION: Interval improvement in the abscess in the right lower quadrant. Bilateral pleural effusions with bibasilar atelectasis and/or infiltrates. Small amount of ascites. Electronically Signed: Nael Thomas MD at 10:15 EDT ,
--- NOTE | 2023-09-04 07:15 | PCM.PN.SRG ---
Subjective Subjective Patient is still stating that she is having a lot of pain. She says she tolerated some regular diet yesterday. Denies nausea or vomiting. Objective Data Objective Data Vital Signs: Vital Signs Temp Pulse Resp BP Pulse Ox O2 Del Method O2 Flow Rate 97.9 F 65 16 118/80 99 Room Air 2 09/04/23 05:45 09/04/23 05:45 09/04/23 05:45 09/04/23 05:45 09/04/23 05:45 09/04/23 05:45 09/01/23 15:00 Oxygen Flow Rate (L/min) 2 Oxygen Delivery Method Room Air Weight: 110 lb 10.753 oz Body Mass Index (BMI) 19.0 Intake & Output: Intake and Output for Last 24 Hours 09/02/23 09/03/23 09/04/23 23:59 23:59 23:59 Intake Total 3684.16 / 3684.16 2795.17 / 2795.17 350 / 350 Output Total 750 / 750 205 / 205 2 / 2 Balance 2934.16 / 2934.16 2590.17 / 2590.17 348 / 348 Lab / Micro Data 09/04/23 04:17 09/04/23 04:17 Labs: Laboratory Results - last 24 hr 09/04/23 04:17: WBC 4.5, RBC 3.52 L, Hgb 10.5 L, Hct 32.4 L, MCV 92.0, MCH 29.8, MCHC 32.4, RDW Std Deviation 51.2 H, RDW Coeff of Yury 15.3 H, Plt Count 238, MPV 9.0, Immature Gran % (Auto) 0.400, Neut % (Auto) 69.7, Lymph % (Auto) 18.4 L, [place] % (Auto) 6.9, Eos % (Auto) 4.2, Baso % (Auto) 0.4, Absolute Neuts (auto) 3.2, Absolute Lymphs (auto) 0.83, Nucleated RBC % 0, Sodium 140, Potassium 3.8, Chloride 118 H, Carbon Dioxide 19.0 L, Anion Gap 3 L, BUN 6 L, Creatinine 0.51 L, Estim Creat Clear Calc 88.31, Est GFR (MDRD) Af Amer 156, Est GFR (MDRD) Non-Af 129, BUN/Creatinine Ratio 11.7, Glucose 77, Calcium 7.6 L, Phosphorus 2.8, Magnesium 1.6 Micro: Microbiology 09/01/23 11:14 Pelvic Abcess Gram Stain - Final 09/01/23 11:14 Pelvic Abcess Wound Culture - Final Citrobacter braakii Streptococcus group F 09/01/23 11:14 Pelvic Abcess Anaerobic Culture - Preliminary 09/01/23 12:08 Aspirate - Abdominal Gram Stain - Preliminary 09/01/23 12:08 Aspirate - Abdominal Wound Culture - Preliminary No growth-Final to follow 09/01/23 12:08 Aspirate - Abdominal Anaerobic Culture - Preliminary No growth in 48 hours. 08/31/23 17:36 Urine, Clean Catch Urine Culture - Final Culture exhibits no growth. 09/01/23 08:15 Stool Stool Occult Blood (LINDA) - Final Occult Blood Positive 08/31/23 17:50 Mucosa - Nose SARS-CoV-2, Influenza & RSV (PCR) - Final Physical Exam Const oriented x3 and no apparent distress Resp normal respiratory effort Cardio regular rate and regular rhythm GI soft to palpation Palpation: tender RLQ Assessment & Plan Assessment/Plan (1) Acute 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 with appendiceal abscess: PLAN: The patient is still having abdominal pain. Her drain seems more rust colored today with a little brown tinge to it. I am repeating a CT scan to see if she has an obvious fistula forming. I am also ruling out other abscesses that may need to be drained. Tristen Cueva MD Pager: [facility] [address] [place] [address], [address] [place] [address] Office:
[2023-09-04 09:00] VITALS: RESP 18
[2023-09-04 09:50] VITALS: O2SAT 99
--- NOTE | 2023-09-04 10:20 | PCM.PN.BLA ---
Progress Note The patient was still having pain this morning so I ordered a repeat CT scan lower and IV contrast. This CAT scan shows interval mild improvement in the inflammatory process. She also has moderate bilateral pleural effusions. I will order some p.o. Lasix for her today and continue diet as tolerated. Continue pain control. Continue antibiotics. Tristen Cueva MD Pager: [facility] [address] [place] [address], [address] [place] [address] Office:
[2023-09-04 10:37] VITALS: BP 127/67; PULSE 62; RESP 16; TEMP 36.8; O2SAT 100
[2023-09-04] MEDS: Lacosamide 100 MG Tablet PO ×2 (10:49→21:35)
[2023-09-04] MEDS: Divalproex (ER) 250 MG Tablet 750 MG PO ×2 (10:50→21:35)
--- NOTE | 2023-09-04 11:01 | CASEMGMT ---
Social Work- Sw met with pt to discuss HCPOA/ directives. Pt states that she does have a HCPOA, Hema Carrasquillo, a friend. SW advised that we do not have paperwork on file and encouraged pt to bring in or mail in a copy to have on file. INDY Martinez
[2023-09-04] MEDS: Furosemide 40 MG Tablet PO (11:08)
[2023-09-04 17:00] VITALS: BP 160/138; PULSE 88; RESP 18; TEMP 37.2; O2SAT 100
--- NOTE | 2023-09-04 17:42 | PCM.PN.HOSP ---
Reason for Visit Reason for Visit: Diagnoses Anemia, unspecified (08/31/23) Unspecified severe protein-calorie malnutrition (08/31/23) Hypokalemia (08/31/23) Hypotension, unspecified (08/31/23) Acute 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 with perforation, localized peritonitis, and gangrene, with abscess (08/31/23) Weakness (08/31/23) Subjective Subjective Patient was seen and examined today, I talked with general surgery about her care, patient had a CT of the abdomen obtained which showed evidence of mild to moderate pleural effusions, abscess area in the abdomen was improved. Cultures grew out Citrobacter and strep, both are susceptible to Zosyn. Objective Data Objective Data Vital Signs: Vital Signs Temp Pulse Resp BP Pulse Ox O2 Del Method O2 Flow Rate 98.2 F 62 16 127/67 H 100 Room Air 2 09/04/23 10:37 09/04/23 10:37 09/04/23 10:37 09/04/23 10:37 09/04/23 10:37 09/04/23 10:37 09/01/23 15:00 Oxygen Flow Rate (L/min) 2 Oxygen Delivery Method Room Air Weight: 50.2 kg Body Mass Index (BMI) 19.0 Intake & Output: Intake and Output for Last 24 Hours 09/02/23 09/03/23 09/04/23 23:59 23:59 23:59 Intake Total 3684.16 / 3684.16 2795.17 / 2795.17 1950 / 1950 Output Total 750 / 750 205 / 205 4 / 4 Balance 2934.16 / 2934.16 2590.17 / 2590.17 194 / 194 Lab / Micro Data 09/04/23 04:17 09/04/23 04:17 Labs: Laboratory Results - last 24 hr 09/04/23 04:17: WBC 4.5, RBC 3.52 L, Hgb 10.5 L, Hct 32.4 L, MCV 92.0, MCH 29.8, MCHC 32.4, RDW Std Deviation 51.2 H, RDW Coeff of Yury 15.3 H, Plt Count 238, MPV 9.0, Immature Gran % (Auto) 0.400, Neut % (Auto) 69.7, Lymph % (Auto) 18.4 L, [place] % (Auto) 6.9, Eos % (Auto) 4.2, Baso % (Auto) 0.4, Absolute Neuts (auto) 3.2, Absolute Lymphs (auto) 0.83, Nucleated RBC % 0, Sodium 140, Potassium 3.8, Chloride 118 H, Carbon Dioxide 19.0 L, Anion Gap 3 L, BUN 6 L, Creatinine 0.51 L, Estim Creat Clear Calc 88.31, Est GFR (MDRD) Af Amer 156, Est GFR (MDRD) Non-Af 129, BUN/Creatinine Ratio 11.7, Glucose 77, Calcium 7.6 L, Phosphorus 2.8, Magnesium 1.6 Micro: Microbiology 09/01/23 11:14 Pelvic Abcess Gram Stain - Final 09/01/23 11:14 Pelvic Abcess Wound Culture - Final Citrobacter braakii Streptococcus group F 09/01/23 11:14 Pelvic Abcess Anaerobic Culture - Preliminary 09/01/23 12:08 Aspirate - Abdominal Gram Stain - Preliminary 09/01/23 12:08 Aspirate - Abdominal Wound Culture - Preliminary No growth-Final to follow 09/01/23 12:08 Aspirate - Abdominal Anaerobic Culture - Preliminary No growth in 48 hours. 08/31/23 17:36 Urine, Clean Catch Urine Culture - Final Culture exhibits no growth. 09/01/23 08:15 Stool Stool Occult Blood (LINDA) - Final Occult Blood Positive 08/31/23 17:50 Mucosa - Nose SARS-CoV-2, Influenza & RSV (PCR) - Final Radiography Diagnostic Testing: Radiology Impression Abdomen/Pelvis CT 09/04/23 07:14 IMPRESSION: Interval improvement in the abscess in the right lower quadrant. Bilateral pleural effusions with bibasilar atelectasis and/or infiltrates. Small amount of ascites. Electronically Signed: Nael Thomas MD at 10:15 EDT , Physical Exam Const alert, oriented x3, no apparent distress and average body habitus General Appearance: cooperative, well kempt and well developed Orientation / Consciousness: awake, oriented to person, oriented to place and oriented to time HEENT normocephalic, head/scalp atraumatic and moist oral mucous membranes Eyes PERRL, EOMs intact bilaterally and conjunctivae normal Neck supple, no JVD, thyroid normal and no carotid bruits General: trachea midline Resp normal respiratory effort, no retractions, no use of accessory muscles and clear to auscultation bilaterally Auscultation: Negative for rales, rhonchi or wheezes Cardio regular rate, regular rhythm, S1 normal heart sound, S2 normal heart sound, no murmurs, no rub and no gallops GI non-distended Extremity no clubbing, cyanosis or edema Skin no rashes or lesions noted General Skin Exam: no breakdown Neuro oriented x3, CN's II-XII intact bilaterally, moves all extremities, no focal motor deficits and no sensory deficits noted Sensorium / Orientation: awake and alert Speech: speech normal Psych affect normal Assessment & Plan Assessment/Plan (1) Acute 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 with appendiceal abscess: PLAN: Plan 1. Iron deficiency anemia requiring blood transfusion-etiology unclear, patient did have Hemoccult positive stool and will require further studies such as endoscopy, I will discuss this with general surgery tomorrow #2 hypokalemia-corrected at this time #3 bilateral pleural effusions-etiology unclear, patient does have fatty liver on her abdominal CT scan, there is also ascites noted, and patient received quite a bit of IV fluids as she has been admitted to the hospital here. I will place her on spironolactone and oral Lasix, surgery gave her 1 dose of Lasix today. #4 appendiceal abscess with acute 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-patient is on Zosyn, JONEL drain will be continued #5 seizure disorder-patient remains on Depakote and Vimpat Patient has no evidence of malnutrition Total clinical time spent by myself addressing the patient's medical issues, reviewing all of her data, and collaborating with patient's care team: 35 minutes Charges/Coding Visit Charges Inpatient E&M: 74683 Subs Hosp L2
[2023-09-04] MEDS: Pantoprazole Sodium 40 MG Tablet PO (18:38)
[2023-09-04 21:53] VITALS: BP 125/64; PULSE 69; RESP 16; TEMP 36.7; O2SAT 98
[2023-09-05 05:26] VITALS: BMI 19.2
[2023-09-05] MEDS: Piperacil/Tazobactam 3.375 GM in 0.9% Normal Saline (50mL MB+) 50 ML IV ×2 (05:28→13:36)
[2023-09-05 05:30] VITALS: BP 107/60; PULSE 64; RESP 15; TEMP 36.7; O2SAT 98
--- NOTE | 2023-09-05 08:13 | PN.SURG_ITS ---
Subjective Subjective Patient states her abdominal pain is much improved from yesterday. Patient did have a bowel movement with contrast., JONEL serosanguineous Objective Data Objective Data Vital Signs: Vital Signs Temp Pulse Resp BP Pulse Ox O2 Del Method O2 Flow Rate 98.0 F 64 15 107/60 98 Room Air 2 09/05/23 05:30 09/05/23 05:30 09/05/23 05:30 09/05/23 05:30 09/05/23 05:30 09/05/23 05:30 09/01/23 15:00 Oxygen Flow Rate (L/min) 2 Oxygen Delivery Method Room Air Weight: 112 lb 10.499 oz Body Mass Index (BMI) 19.2 Intake & Output: Intake and Output for Last 24 Hours 09/03/23 09/04/23 09/05/23 23:59 23:59 23:59 Intake Total 2795.17 / 2795.17 2750 / 2950 250 / 250 Output Total 205 / 205 254 / 654 800 / 800 Balance 2590.17 / 2590.17 2496 / 2296 -550 / -550 Lab / Micro Data 09/04/23 04:17 09/04/23 04:17 Micro: Microbiology 09/01/23 11:14 Pelvic Abcess Gram Stain - Final 09/01/23 11:14 Pelvic Abcess Wound Culture - Final Citrobacter braakii Streptococcus group F 09/01/23 11:14 Pelvic Abcess Anaerobic Culture - Preliminary 09/01/23 12:08 Aspirate - Abdominal Gram Stain - Preliminary 09/01/23 12:08 Aspirate - Abdominal Wound Culture - Preliminary No growth-Final to follow 09/01/23 12:08 Aspirate - Abdominal Anaerobic Culture - Preliminary No growth in 48 hours. 08/31/23 17:36 Urine, Clean Catch Urine Culture - Final Culture exhibits no growth. 09/01/23 08:15 Stool Stool Occult Blood (LINDA) - Final Occult Blood Positive 08/31/23 17:50 Mucosa - Nose SARS-CoV-2, Influenza & RSV (PCR) - Final Radiography Diagnostic Testing: Radiology Impression Abdomen/Pelvis CT 09/04/23 07:14 IMPRESSION: Interval improvement in the abscess in the right lower quadrant. Bilateral pleural effusions with bibasilar atelectasis and/or infiltrates. Small amount of ascites. Electronically Signed: Nael Thomas MD at 10:15 EDT , Physical Exam Const oriented x3 and no apparent distress Resp normal respiratory effort Cardio regular rate GI soft to palpation GI Narrative: Mild tenderness near the JONEL site, JONEL serosanguineous Inspection: Negative for abdominal distention Assessment & Plan Assessment/Plan (1) Acute 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 with appendiceal abscess: (2) Anemia: PLAN: Plan Patient is tolerating diet however not eating that much but patient states she normally does not eat much at home. Encourage protein drinks 30 g 2-3 times daily at home White blood cell has been normal on Zosyn will change to p.o. antibiotics JONEL teaching Will plan follow-up in 1 week with repeat CAT scan. Cecily Rudd M.D. Pager: [phone] [facility] [address] [place] [address], Outpatient [address], [address] [place] [address] Office: [phone] Charges/Coding Visit Charges Inpatient E&M: 57655 Subs Hosp L2
[2023-09-05 09:00] VITALS: BP 113/68; PULSE 74; RESP 18; TEMP 36.8; O2SAT 98
--- NOTE | 2023-09-05 09:56 | DCINST_ITS ---
Discharge Instructions Diet Discharge Diet: No restrictions (recommend protein drinks w 30grams of protein 2-3 a day) Activity Discharge Activity: Return to Normal Activity Dressing / Incision Call your doctor if your incision/area has: Continuous Slow Oozing, Sudden Increased Bleeding, Increased Pain/ Swelling, Increased Redness and Foul Smelling Discharge Additional Dressing/Incision Instructions:: empty JONEL when 1/2 full and log with color, no showering with JONEL Follow Up Care Please Follow Up With: Cecily Rudd MD When: f/u in 1 week Test Results: Test results from this visit will be discussed in further detail at your follow- up appointment, if applicable. Discharge Plan Admission Admit Date/Time: 08/31/23 21:02 Attending Provider: Trip Juan [facility] Consult[facility] Providers: Cecily Rudd; Doni Caballero; Doni Smith Discharge Orders/Prescriptions Prescriptions: New amoxicillin-pot clavulanate 875-125 mg tablet 1 tab PO Q12H Qty: 20 0RF ciprofloxacin HCl 500 mg tablet 500 mg PO Q12H Qty: 20 0RF Continued clonazepam 0.25 MG tablet,disintegrating 0.25 mg PO PRN PRN (Reason: Seizures) lacosamide 100 mg Tablet 100 mg PO BID Qty: 60 1RF divalproex [Depakote ER] 250 mg tablet extended release 24 hr 750 mg PO BID Qty: 180 0RF [facility] - Disposition Disposition (needs filled in before D/C Order can be placed): Home, Self Care
--- NOTE | 2023-09-05 10:01 | DS.PCM_ITS ---
Providers Date of Admission: 08/31/23 Primary Care Physician: Sarah [facility] Consultations 08/31/23 22:20 Consult: Hospitalist Routine Consulting Provider: Doni Caballero Reason for Consult: medical managment EMERGENT Consult: No MD Notified: Yes Date Notified: 08/31/23 Time Notified: 21:15 Method of Notification: Verbal Reason For Visit: APPENDICEAL ABSCESS Diagnosis Discharge Diagnosis (1) Acute 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 with appendiceal abscess: Status: Acute Code(s): K35.33 - Acute 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 with perforation, localized peritonitis, and gangrene, with abscess (2) Anemia: Status: Acute Code(s): D64.9 - Anemia, unspecified Plan Patient is tolerating diet however not eating that much but patient states she normally does not eat much at home. Encourage protein drinks 30 g 2-3 times daily at home White blood cell has been normal on Zosyn will change to p.o. antibiotics OJNEL teaching Will plan follow-up in 1 week with repeat CAT scan. Ceciyl Rudd M.D. Pager: [phone] [facility] [address] [place] [address], [facility], [address] [place] [address] Office: [phone] Medications at Discharge Home Medications clonazepam 0.25 mg disintegrating tablet 0.25 mg PO PRN PRN Seizures 10/10/19 divalproex 250 mg tablet,extended release 24 hr (Depakote ER) 750 mg (3 x 250 mg) PO BID #180 tabs 08/25/23 lacosamide 100 mg tablet 100 mg PO BID #60 tabs 08/25/23 amoxicillin 875 mg-potassium clavulanate 125 mg tablet 1 tab PO Q12H #20 tabs 09/05/23 ciprofloxacin HCl 500 mg tablet 500 mg PO Q12H #20 tabs 09/05/23 Hospital Course Operations None Procedures None (IR placement of abscess drainage catheter-appendiceal abscess) Summary of Care Provided Minutes Spent on Discharge: 15 Hospital Course: Patient came into the ER due to weakness was found to have a fever of one 1.[address] abdomen pelvis done which showed acute 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/abscess. Patient did not really admit to any abdominal pain but sister did note patient had not been eating for the last 24 hours what sounds like patient does not eat much throughout the day normally. Patient was initially admitted to ICU due to hypotension. Patient normally runs systolically 97 was in the 80s mostly in the ER. Patient was able to have IR drain placed and also IR drained some fluid in the other subhepatic region which was just ascites. Patient not having any further fevers and was on IV Zosyn throughout the hospitalization. Patient had a repeat CT abdomen pelvis on 09/03 which showed improvement of the abscess area. Patient did have larger pleural effusions did get some Lasix also still had some ascites in the abdomen. Today patient states her abdominal pain is improved. Patient has been ambulating. Okay with PT and OT and patient has JONEL teaching okay to DC and will have patient follow-up in about a week and plan for CT abdomen pelvis at that time. Patient will be sent home on Augmentin and Cipro due to cultures taken at time of IR drainage. Patient is agreeable with plan. Weight / BMI Weight Weight: 112 lb 10.499 oz Body Mass Index (BMI) 19.2 ABG / Lab / Microbiology Data 09/04/23 04:17 09/04/23 04:17 Microbiology: Microbiology 09/01/23 12:08 Aspirate - Abdominal Gram Stain - Preliminary 09/01/23 12:08 Aspirate - Abdominal Wound Culture - Final No growth aerobically. 09/01/23 12:08 Aspirate - Abdominal Anaerobic Culture - Preliminary No growth in 48 hours. 09/01/23 11:14 Pelvic Abcess Gram Stain - Final 09/01/23 11:14 Pelvic Abcess Wound Culture - Final Citrobacter braakii Streptococcus group F 09/01/23 11:14 Pelvic Abcess Anaerobic Culture - Preliminary 08/31/23 17:36 Urine, Clean Catch Urine Culture - Final Culture exhibits no growth. 09/01/23 08:15 Stool Stool Occult Blood (LINDA) - Final Occult Blood Positive 08/31/23 17:50 Mucosa - Nose SARS-CoV-2, Influenza & RSV (PCR) - Final Radiography Diagnostic Testing: Radiology Impression Abdomen/Pelvis CT 09/04/23 07:14 IMPRESSION: Interval improvement in the abscess in the right lower quadrant. Bilateral pleural effusions with bibasilar atelectasis and/or infiltrates. Small amount of ascites. Electronically Signed: Nael Thomas MD at 10:15 EDT , D/C Instructions Discharge Diet: No restrictions (recommend protein drinks w 30grams of protein 2-3 a day) Call your doctor if your incision/area has: Continuous Slow Oozing, Sudden Increased Bleeding, Increased Pain/ Swelling, Increased Redness and Foul Smelling Discharge Additional Dressing/Incision Instructions: empty JONEL when 1/2 full and log with color, no showering with JONEL Please Follow Up With: Cecily Rudd MD When: f/u in 1 week Meaningful Use Info Meaningful Use Meaningful Use Diagnoses (Choose all that apply): None applicable Ischemic Stroke Statin Dosing Therapy Reference: STATIN DOSE THERAPY REFERENCE: * Patients > 75 years receive moderate or high dose statin therapy. * Patients 75 years or YOUNGER should receive HIGH intensity statin dose unless contraindicated. You will be required to document reason for non-treatment if statin daily dose does not meet guidelines. HIGH DOSE STATIN THERAPY DAILY Atorvastatin > than or = to 40 mg Rosuvastatin > than or = to 20 mg Amlodipine + Atorvastatin > than or = to 2.5/40 mg Ezetimibe + Simvastatin 10/80 mg Simvastatin 80mg Discharge Plan Admission Admit Date/Time: 08/31/23 21:02 Attending Provider: Trip Juan [facility] Providers: Cecily Rudd; Doni Caballero; Doni Smith Discharge Orders/Prescriptions Prescriptions: New amoxicillin-pot clavulanate 875-125 mg tablet 1 tab PO Q12H Qty: 20 0RF ciprofloxacin HCl 500 mg tablet 500 mg PO Q12H Qty: 20 0RF Continued clonazepam 0.25 MG tablet,disintegrating 0.25 mg PO PRN PRN (Reason: Seizures) lacosamide 100 mg Tablet 100 mg PO BID Qty: 60 1RF divalproex [Depakote ER] 250 mg tablet extended release 24 hr 750 mg PO BID Qty: 180 0RF [facility] - Disposition Disposition (needs filled in before D/C Order can be placed): Home, Self Care
[2023-09-05] MEDS: Lacosamide 100 MG Tablet PO (10:16)
[2023-09-05] MEDS: Spironolactone 25 MG Tablet PO (10:17)
[2023-09-05] MEDS: Furosemide 40 MG Tablet PO (10:17)
[2023-09-05] MEDS: Divalproex (ER) 250 MG Tablet 750 MG PO (10:17)
[2023-09-05] MEDS: Pantoprazole Sodium 40 MG Tablet PO (10:19)
--- NOTE | 2023-09-05 12:22 | CASEMGMT ---
REAL CM into pt room, pt sitting up in bed in no distress. Discussed pt therapy progress and pt denies need for any homecare services including nursing or therapy. Pt feels she is strong enough to go home and states she has many family members to assist with her care. Pt states her sister is coming in from out of state to care for her. Pt states that she has been taught how to care for her JONEL drain and she feels comfortable with this. Pt denies any homegoing needs.
[2023-09-05] MEDS: Ensure Plus High Protein 120 ML LIQUID PO (13:36)
[2023-09-05 13:57] LABS: Bacteria 0 SEEN /hpf (None Seen); Mucous, Urine 0 SEEN /hpf (<or=2+); Red Blood Cells-Urine 0 SEEN /hpf (0-5); Squamous Epithelial Cells - UA 0 SEEN /hpf (5-10); White Blood Cells 0 SEEN /hpf (0-5)
[2023-09-05 14:03] LABS: Glucose, Dipstick Normal (Normal); Ketone-Dipstick Negative (Negative); Leukocyte Esterase-Dipstick Negative /ul (Negative); Nitrite-Dipstick Negative (Negative); Occult Blood-Urine Negative /ul (Negative); Protein-Dipstick Negative (Negative); Urine Bilirubin Dipstick Negative (Negative); Urine Urobilinogen Normal (Normal)
[2023-09-05 14:10] LABS: Color, Urine Yellow (Yellow); Urine Clarity Clear (Clear)
[2023-09-05 15:00] VITALS: BP 117/70; PULSE 70; RESP 18; TEMP 36.9; O2SAT 98
--- NOTE | 2023-09-05 15:13 | PCM.PN.HOSP ---
Reason for Visit Reason for Visit: Diagnoses Anemia, unspecified (08/31/23) Unspecified severe protein-calorie malnutrition (08/31/23) Hypokalemia (08/31/23) Hypotension, unspecified (08/31/23) Acute 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 with perforation, localized peritonitis, and gangrene, with abscess (08/31/23) Weakness (08/31/23) Subjective Subjective Patient was seen and examined today, surgery felt that the patient was stable for discharge, I talked briefly with the patient today she is not having any shortness of breath, I had given her Lasix and spironolactone this morning but I decided not to continue this medication as an outpatient. I also talked with general surgery about antibiotic coverage for the patient as an outpatient. Objective Data Objective Data Vital Signs: Vital Signs Temp Pulse Resp BP Pulse Ox O2 Del Method O2 Flow Rate 98.5 F 70 18 117/70 98 Room Air 2 09/05/23 15:00 09/05/23 15:00 09/05/23 15:00 09/05/23 15:00 09/05/23 15:00 09/05/23 15:00 09/01/23 15:00 Oxygen Flow Rate (L/min) 2 Oxygen Delivery Method Room Air Weight: 51.1 kg Body Mass Index (BMI) 19.2 Intake & Output: Intake and Output for Last 24 Hours 09/03/23 09/04/23 09/05/23 23:59 23:59 23:59 Intake Total 2795.17 / 2795.17 2750 / 2950 1200 / 1200 Output Total 205 / 205 254 / 654 800 / 800 Balance 2590.17 / 2590.17 2496 / 2296 400 / 400 Lab / Micro Data 09/04/23 04:17 09/04/23 04:17 Labs: Laboratory Results - last 24 hr 09/05/23 13:38: Urine Color Yellow, Urine Clarity Clear, Urine pH 6.0, Ur Specific [place] 1.010, Urine Protein Negative, Urine Glucose (UA) Normal, Urine Ketones Negative, Urine Occult Blood Negative, Urine Nitrite Negative, Urine Bilirubin Negative, Urine Urobilinogen Normal, Ur Leukocyte Esterase Negative, Urine RBC 0 SEEN, Urine WBC 0 SEEN, Ur Squamous Epith Cells 0 SEEN, Urine Bacteria 0 SEEN, Urine Mucus 0 SEEN Micro: Microbiology 09/01/23 12:08 Aspirate - Abdominal Gram Stain - Preliminary 09/01/23 12:08 Aspirate - Abdominal Wound Culture - Final No growth aerobically. 09/01/23 12:08 Aspirate - Abdominal Anaerobic Culture - Preliminary No growth in 48 hours. 09/01/23 11:14 Pelvic Abcess Gram Stain - Final 09/01/23 11:14 Pelvic Abcess Wound Culture - Final Citrobacter braakii Streptococcus group F 09/01/23 11:14 Pelvic Abcess Anaerobic Culture - Preliminary 08/31/23 17:36 Urine, Clean Catch Urine Culture - Final Culture exhibits no growth. 09/01/23 08:15 Stool Stool Occult Blood (LINDA) - Final Occult Blood Positive 08/31/23 17:50 Mucosa - Nose SARS-CoV-2, Influenza & RSV (PCR) - Final Physical Exam Narrative alert, oriented x3, no apparent distress and average body habitus General Appearance: cooperative, well kempt and well developed Orientation / Consciousness: awake, oriented to person, oriented to place and oriented to time HEENT normocephalic, head/scalp atraumatic and moist oral mucous membranes Eyes PERRL, EOMs intact bilaterally and conjunctivae normal Neck supple, no JVD, thyroid normal and no carotid bruits General: trachea midline Resp normal respiratory effort, no retractions, no use of accessory muscles and clear to auscultation bilaterally Auscultation: Negative for rales, rhonchi or wheezes Cardio regular rate, regular rhythm, S1 normal heart sound, S2 normal heart sound, no murmurs, no rub and no gallops GI non-distended Extremity no clubbing, cyanosis or edema Skin no rashes or lesions noted General Skin Exam: no breakdown Neuro oriented x3, CN's II-XII intact bilaterally, moves all extremities, no focal motor deficits and no sensory deficits noted Sensorium / Orientation: awake and alert Speech: speech normal Psych affect normal Assessment & Plan Assessment/Plan (1) Acute 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 with appendiceal abscess: PLAN: Plan 1. Iron deficiency anemia requiring blood transfusion-etiology unclear, patient did have Hemoccult positive stool and will require further studies such as endoscopy, I discussed this with general surgery, they are reluctant to do any scoping at this time due to her appendiceal perforation. I called in a prescription to [facility] for the patient to take Protonix 40 mg daily and I will let general surgery know about this. #2 hypokalemia-corrected at this time #3 bilateral pleural effusions-etiology unclear, patient's lungs appear to be clear on auscultation today, I have elected not to continue to give her diuresis as an outpatient, patient had quite a bit of fluids administered during her hospital stay and she was given a few doses of diuretics in the hospital here. #4 appendiceal abscess with acute 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-patient will be discharged with a JONEL drain and she was placed on Augmentin and Cipro as an outpatient. #5 seizure disorder-patient remains on Depakote and Vimpat Patient has no evidence of malnutrition Total clinical time spent by myself addressing the patient's medical issues, reviewing all of her data, and collaborating with patient's care team: 35 minutes Charges/Coding Visit Charges Inpatient E&M: 81275 Subs Hosp L2
--- NOTE | 2023-09-05 15:15 | PHA.DC.MR.R ---
Pharmacy MD Med Reconciliation Pharmacy Service has performed discharge medication reconciliation for this patient. Unable to student loan counselor, medications reviewed. The patient's discharge medication list was reviewed for discrepancies and discrepancies were resolved. Medications at Discharge Home Medications clonazepam 0.25 mg disintegrating tablet 0.25 mg PO PRN PRN Seizures 10/10/19 divalproex 250 mg tablet,extended release 24 hr (Depakote ER) 750 mg (3 x 250 mg) PO BID #180 tabs 08/25/23 lacosamide 100 mg tablet 100 mg PO BID #60 tabs 08/25/23 amoxicillin 875 mg-potassium clavulanate 125 mg tablet 1 tab PO Q12H #20 tabs 09/05/23 ciprofloxacin HCl 500 mg tablet 500 mg PO Q12H #20 tabs 09/05/23
[2023-09-06 14:06] LABS: Prealbumin 3.3 mg/dL (20.0-40.0); Thyroid Stim Hormone (TSH) 1.46 uIU/mL (0.358-3.74)
== END 2023-09-05 15:25 | disposition home or self-care (01) | DRG 871 ==
LOC: ED 20:55 → ICU 21:10 → MS3 09-03 10:34
PROVIDERS: Internal Medicine; Nurse Practitioner; Admitting Provider Surgery; Emergency Provider Emergency Medicine; Visit Provider Internal Medicine
DX: A41.9 Sepsis, unspecified organism (principal); K35.33 Acute 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 with perforation, localized peritonitis, and gangrene, with abscess; J90 Pleural effusion, not elsewhere classified; E87.1 Hypo-osmolality and hyponatremia; R18.8 Other ascites; I95.9 Hypotension, unspecified; G40.909 Epilepsy, unspecified, not intractable, without status epilepticus; D50.9 Iron deficiency anemia, unspecified; K76.0 Fatty (change of) liver, not elsewhere classified; F12.90 Cannabis use, unspecified, uncomplicated; E83.42 Hypomagnesemia; F41.8 Other specified anxiety disorders; E87.6 Hypokalemia; K58.9 Irritable bowel syndrome, unspecified; M19.019 Primary osteoarthritis, unspecified shoulder; Z87.891 Personal history of nicotine dependence; Z66 Do not resuscitate
CPT/HCPCS: 36415; 71045; 74177; 75989; 80048; 80053; 80076; 80164; 80307; 81001; 82077; 82140; 82274; 82533; 82607; 82728; 82746; 83540; 83550; 83605; 83735; 84100; 84134; 84443; 85014; 85018; 85025; 85610; 85730; 86644; 86850; 86900; 86901; 86920; 87040; 87070; 87075; 87077; 87086; 87186; 87205; 87631; 88108; 88305; 88313; 93005; 97110; 97162; 97166; 97530; 97535; 97802; 99285; J7030; J7050; P9016; P9047; Q9967; A4216

== ENCOUNTER → 2023-09-01 | Outpatient (CLI) | payer MEDICARE, MEDICAID, SELFPAY | END | disposition home or self-care (01) | LOC: LABSPEC 11:28 | PROVIDERS: Referring Provider Nurse Practitioner Acute Care; Visit Provider Nurse Practitioner Acute Care | DX: K35.33 Acute 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 with perforation, localized peritonitis, and gangrene, with abscess (principal) ==

== ENCOUNTER → 2023-10-17 | Outpatient (CLI) | payer MEDICARE, SELFPAY ==
--- NOTE | 2023-10-17 08:00 | CT_ITS ---
STUDY: CT ABDOMEN AND PELVIS WITH CONTRAST REASON FOR EXAM: Female, 63 years old. Appendiceal abscess RADIATION DOSAGE (If Supplied By Facility): CTDIvol = ( 9.08 ) mGy, DLP = ( 226.93 ) mGycm TECHNIQUE: Transaxial images were obtained from the dome of the diaphragm to the symphysis pubis with oral contrast. Oral and amp; IV Readi-CAT and amp; 75mL Isovue-370 was administered. Sagittal and coronal images were reconstructed. Individualized dose optimization techniques were used for this CT. COMPARISON: Comparison is made with prior study September 04, 2023. FINDINGS: The previously seen bilateral pleural effusions have cleared. Minimal right basilar atelectasis. Small residual pericardial effusion. Normal liver. Normal gallbladder and extrahepatic biliary system. Normal spleen. Normal pancreas. Normal bilateral adrenal glands. Stable left renal cyst. The tip of the drainage catheter is now seen just deep to the anterior abdominal wall in the midline. Normal visualized stomach. There is a 4.3 cm x 5.6 cm x 3.8 cm predominantly phlegmon appearing inflammatory mass in the right lower quadrant. There is circumferential thickening of the proximal ascending colon and cecum. There is also evidence of circumferential wall thickening with narrowing of the lumen of a distal ileal small bowel loop. 2 tiny well-defined fluid collections are seen along the medial aspect of the phlegmon measuring 8.5 mm. There is evidence of increased markings in the surrounding peritoneal fat as well as small mesenteric lymph nodes in the right lower quadrant. There is no evidence of free fluid in the pelvis at this time. Normal abdominal aorta. Normal inferior vena cava. Normal retroperitoneum. Normal urinary bladder. Normal abdominal wall. Normal osseous structures. CT/Abdomen/Pelvis WITH Contrast IMPRESSION: The previously seen drainage catheter is displaced with the tip just deep to the anterior abdominal wall in the midline as described. Findings suggestive of a 4.3 cm x 5.6 cm x 3.8 cm predominantly phlegmon in the right lower quadrant involving a portion of the ascending colon as well as a distal ileal loop as described with circumferential wall thickening and narrowing of the bowel. There are 2 adjacent subcentimeter well-circumscribed fluid collections. Interval resolution of the previously seen bilateral pleural effusions with mild residual linear atelectasis at the right lung base. Tiny persistent pericardial effusion. Electronically Signed: Nael Thomas MD at 9:18 EDT ,
== END | disposition home or self-care (01) ==
LOC: CT 07:57
PROVIDERS: Referring Provider Surgery; Visit Provider Surgery
DX: K35.33 Acute 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 with perforation, localized peritonitis, and gangrene, with abscess (principal)
CPT/HCPCS: 74177; Q9967

== ENCOUNTER 2023-10-18 08:37 | Emergency (ER) | payer MEDICARE, MEDICAID, SELFPAY ==
[2023-10-18 08:38] VITALS: BP 107/65; PULSE 85; RESP 14; TEMP 36.6; O2SAT 99; BMI 16.0
--- NOTE | 2023-10-18 09:02 | EDS_ITS ---
HPI History of Present Illness Chief Complaint: Abd Pain [facility] Medical History (Updated 09/13/23 @ 00:02 by Bethel Werner) Hypotension Marijuana abuse Alcohol dependence ETOH abuse IBS (irritable bowel syndrome) Anxiety Depression Seizure Seizure disorder Home Medications ?Medication ?Instructions ?Recorded ?Last Taken ?Type clonazepam 0.25 mg disintegrating 0.25 mg PO PRN PRN Seizures 10/10/19 Unknown History tablet divalproex 250 mg tablet,extended 750 mg (3 x 250 mg) PO BID #180 08/25/23 Unknown Rx release 24 hr (Depakote ER) tabs lacosamide 100 mg tablet 100 mg PO BID #60 tabs 08/25/23 Unknown Rx amoxicillin 875 mg-potassium 1 tab PO Q12H #20 tabs 09/05/23 Unknown Rx clavulanate 125 mg tablet ciprofloxacin HCl 500 mg tablet 500 mg PO Q12H #20 tabs 09/05/23 Unknown Rx Allergy/AdvReac Type Severity Reaction Status Date / Time erythromycin base Allergy TONGUE Verified 10/18/23 08:38 HALIMA Family History Sister Melanoma Father Prostate CA Surgical History (Updated 10/18/23 @ 08:47 by Judith Jaffe) Hx of appendectomy 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 Social History household members: none housing: apartment Smoking Status: Former smoker alcohol intake: former year quit: 2020 substance use type: marijuana EXAM Physical Exam Const Vital Signs: 10/18/23 08:38 Temperature 98 F Temperature Source Temporal Pulse Rate 85 Respiratory Rate 14 Blood Pressure 107/65 Blood Pressure Mean 79 Pulse Ox 99 Oxygen Delivery Method Room Air Discharge Plan Triage Chief Complaint: Abd Pain ED Provider: Layo Jara Dx/Rx/DC Orders Prescriptions: No Action clonazepam 0.25 MG tablet,disintegrating 0.25 mg PO PRN PRN (Reason: Seizures) lacosamide 100 mg Tablet 100 mg PO BID Qty: 60 1RF divalproex [Depakote ER] 250 mg tablet extended release 24 hr 750 mg PO BID Qty: 180 0RF amoxicillin-pot clavulanate 875-125 mg tablet 1 tab PO Q12H Qty: 20 0RF ciprofloxacin HCl 500 mg tablet 500 mg PO Q12H Qty: 20 0RF Primary Care Provider: Christie Saenz Referrals: Christie Sanez, [employer] [Primary Care Provider] - Print Language: Serbian
--- NOTE | 2023-10-18 09:02 | EX.ED.DYSGE1 ---
HPI History of Present Illness Chief Complaint: Abd Pain Informant: patient and family Narrative Narrative: 63-year-old female presenting to the emergency room stating that her JONEL drain is not in correct position. Patient states that she was treated for acute 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 with perforation/abscess formation in August. She had CT-guided drainage and was discharged home on antibiotics. Family states that a few days to a week later she was taken to [facility] where she was admitted for a month due to a bowel obstruction. She states that she did not require surgery. She states that she was discharged to a rehab facility that she has subsequently left. She states that she is not currently on any antibiotics. She denies any new medications no fevers. Yesterday she states she underwent a CT of the abdomen pelvis and was called by her surgeons office today to come to emergency due to the drain not being in correct position [facility] Medical History Hypotension Marijuana abuse Alcohol dependence ETOH abuse IBS (irritable bowel syndrome) Anxiety Depression Seizure Seizure disorder Home Medications ?Medication ?Instructions ?Recorded ?Last Taken ?Type clonazepam 0.25 mg disintegrating 0.25 mg PO PRN PRN Seizures 10/10/19 Unknown History tablet lacosamide 100 mg tablet 100 mg PO BID #60 tabs 08/25/23 10/18/23 Rx amoxicillin 875 mg-potassium 1 tab PO Q12H #20 tabs 09/05/23 10/18/23 Rx clavulanate 125 mg tablet ciprofloxacin HCl 500 mg tablet 500 mg PO Q12H #20 tabs 09/05/23 10/18/23 Rx acetaminophen 500 mg capsule 1,000 mg PO QHS 10/18/23 10/17/23 History alendronate 70 mg tablet 70 mg PO QWEEK 10/18/23 Unknown History buspirone 7.5 mg tablet 7.5 mg PO BID 10/18/23 10/18/23 History calcium polycarbophil 625 mg 625 mg PO BID 10/18/23 10/18/23 History tablet (Fiber Laxative (calcium polycarbophil)) divalproex 500 mg tablet,extended 500 mg PO BID 10/18/23 10/18/23 History release 24 hr pantoprazole 40 mg tablet,delayed 40 mg PO DAILY 10/18/23 10/18/23 History release potassium chloride 20 mEq 20 meq PO DAILY 10/18/23 10/18/23 History tablet,extended release(part/cryst) sennosides 8.6 mg tablet (senna) 8.6 mg PO BID 10/18/23 10/18/23 History sertraline 50 mg tablet 50 mg PO DAILY 10/18/23 10/18/23 History Allergy/AdvReac Type Severity Reaction Status Date / Time erythromycin base Allergy TONGUE Verified 10/18/23 08:38 HALIMA Family History Sister Melanoma Father Prostate CA Surgical History Hx of appendectomy 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 Social History household members: none housing: apartment Smoking Status: Former smoker alcohol intake: former year quit: 2020 substance use type: marijuana ROS ROS ED Constitutional Constitutional ED: Denies chills, fever(s) or weight loss Eyes Eyes: Denies change in vision or diplopia ENT ENT ED: Denies ear pain, rhinorrhea or sore throat Cardiovascular Cardiovascular: Denies chest pain, orthopnea, palpitations or racing heartbeat Respiratory/Chest Respiratory/Chest: Denies cough, dyspnea or orthopnea Gastrointestinal Gastrointestinal: Reports abdominal pain; Denies diarrhea, nausea or vomiting Genitourinary Genitourinary ED: Denies dysuria, hematuria or urinary frequency Musculoskeletal Musculoskeletal: Denies arthralgias or myalgias Integumentary Denies abscess or rash Neurologic Neurologic: Denies headache(s) or weakness Psychiatric Psychiatric: Denies anxiety, depression, suicidal ideation or suicidal thoughts Endocrine Endocrinology: Denies polydipsia, polyphagia or polyuria Allergic/Immunologic Allergic/Immunologic ED: Denies mouth swelling, tongue swelling or urticaria EXAM Physical Exam Const Vital Signs: 10/18/23 08:38 10/18/23 10:38 Temperature 98 F Temperature Source Temporal Pulse Rate 85 77 Respiratory Rate 14 19 H Blood Pressure 107/65 91/58 L Blood Pressure Mean 79 69 Pulse Ox 99 98 Oxygen Delivery Method Room Air Room Air Positive well nourished and well developed General Appearance ED: well developed HEENT Reports normocephalic, head/scalp atraumatic and moist mucous membranes Eyes PERRL and EOMs intact bilaterally Neck no lymphadenopathy, supple and no JVD Resp normal respiratory effort and clear to auscultation bilaterally Cardio regular rate, regular rhythm and no murmurs GI GI Narrative: There is a JONEL drain going into the mid abdomen at the level of the umbilicus. There is about 20 cc of a dark yellow fluid in the grenade. Mild tenderness on the right side of the abdomen. Palpation: soft Back/Spine no CVA tenderness and normal ROM Extremity normal to inspection General Extremety ED: Negative for edema General Extremity: Negative for edema Neuro oriented x3 and CN's II-XII intact bilaterally Sensorium / Orientation: alert Motor Exam: strength 5/5 throughout Psych mental status grossly normal Mood & Affect: Negative for depressed or tearful Skin no rashes or lesions noted and no wounds MDM MDM MDM Narrative Medical decision making narrative: Differential diagnosis includes appendiceal abscess dehydration renal and liver deficiency sepsis valproic acid toxicity Basic blood work shows a chronic anemia at 9.9 white count 7.8 normal coags lactic acid is normal creatinine is normal liver enzymes within normal limits valproic acid 51 lipase 53. I reviewed the patient's outpatient CT scan. I spoke with Dr. Rudd who came to the emergency department to see the patient. JONEL drain was removed. She is can be started on Augmentin. She is going to follow-up with the patient in the office. History & Record Review Discussion w/independent historian: Patient and Family Additional record(s) reviewed:: Prior inpatient record, Prior outpatient record, Prior ED visit and Prior labs Lab Data Attestation: I reviewed the patient's lab results. Labs: Laboratory Results - last 24 hr 10/18/23 09:14 WBC 7.8 RBC 3.26 L Hgb 9.9 L Hct 31.3 L MCV 96.0 MCH 30.4 MCHC 31.6 L RDW Std Deviation 53.2 H RDW Coeff of Yury 15.2 H Plt Count 251 MPV 10.3 Immature Gran % (Auto) 0.600 Neut % (Auto) 66.2 Lymph % (Auto) 18.3 L [place] % (Auto) 10.4 H Eos % (Auto) 3.7 Baso % (Auto) 0.8 Absolute Neuts (auto) 5.1 Absolute Lymphs (auto) 1.42 Nucleated RBC % 0 PT 13.0 INR 1.0 APTT 25.5 Sodium 140 Potassium 3.8 Chloride 106 Carbon Dioxide 25.0 Anion Gap 9 BUN 23 H Creatinine 0.71 Estim Creat Clear Calc 53.58 Est GFR (MDRD) Af Amer 107 Est GFR (MDRD) Non-Af 89 BUN/Creatinine Ratio 32.6 H Glucose 101 Lactic Acid 1.4 Calcium 9.3 Total Bilirubin 0.30 Direct Bilirubin 0.08 AST 12 L ALT 8 L Alkaline Phosphatase 79 Total Protein 7.8 Albumin 2.8 L Globulin 5.0 H Lipase 53 Valproic Acid 51 Management Discussion w/another healthcare provider: [employer] (Dr. Rudd) Discharge Plan Triage Chief Complaint: Abd Pain ED Provider: Layo Jara Dx/Rx/DC Orders Prescriptions: No Action clonazepam 0.25 MG tablet,disintegrating 0.25 mg PO PRN PRN (Reason: Seizures) lacosamide 100 mg Tablet 100 mg PO BID Qty: 60 1RF amoxicillin-pot clavulanate 875-125 mg tablet 1 tab PO Q12H Qty: 20 0RF Patient Comments: PT ON ANTIBIOTIC HALFWAY. ciprofloxacin HCl 500 mg tablet 500 mg PO Q12H Qty: 20 0RF Patient Comments: PT ON ANTIBIOTIC HALFWAY. divalproex 500 mg tablet extended release 24 hr 500 mg PO BID calcium polycarbophil [Fiber Laxative (ca polycarbo)] 625 mg tablet 625 mg PO BID pantoprazole 40 mg tablet,delayed release (DR/EC) 40 mg PO DAILY potassium chloride 20 mEq tablet,ER particles/crystals 20 meq PO DAILY sertraline 50 mg tablet 50 mg PO DAILY sennosides [senna] 8.6 mg tablet 8.6 mg PO BID acetaminophen 500 mg capsule 1,000 mg PO QHS alendronate 70 mg tablet 70 mg PO QWEEK Patient Comments: PT HASNT PICKED UP OR STARTED YET buspirone 7.5 mg tablet 7.5 mg PO BID Patient Comments: PT HASNT PICKED UP OR STARTED YET Primary Care Provider: Christie Saenz Referrals: Christie Saenz, [facility] [Primary Care Provider] - Print Language: Slovak
[2023-10-18] MEDS: Piperacil/Tazobactam 4.5 GM in 0.9% Normal Saline (100mL MB+) 100 ML IV (09:19)
[2023-10-18 09:31] LABS: Absolute Lymphocyte Count 1.42 X10^3/uL (0.83-4.51); Absolute Neutrophil Count 5.1 X10^3/uL (2.0-7.7); Basophil# 0.06 X10^3/uL; Basophil% 0.8 % (0-1); Eosinophil# 0.29 X10^3/uL; Eosinophils% 3.7 % (0-5); Hematocrit 31.3 % (37-47); Hemoglobin 9.9 g/dL (12.0-15.0); Lymphocyte # 1.42 X10^3/ul (0.83-4.51); Lymphocyte % 18.3 % (19-41); Mean Corp Hgb Conc 31.6 g/dL (32-36); Mean Corpuscular Hgb 30.4 pg (27.0-32.0); Mean Platelet Vol. 10.3 fl (6.2-12.0); Monocyte# 0.81 X10^3/uL; Monocyte% 10.4 % (0-10); NRBC Flagged by Analyzer 0 % (0-5); Neutrophil # 5.13 X10^3/uL (2.7-7.7); Neutrophil % 66.2 % (47-70); Platelet Count 251 K/mm3 (150-450); RBC Distribution Width CV 15.2 % (11.6-14.6); RBC Distribution Width SD 53.2 fl (35.1-43.9); Red Blood Count 3.26 M/mm3 (4.2-5.4); White Blood Count 7.8 K/mm3 (4.4-11.0)
[2023-10-18 09:45] LABS: Partial Thromboplast Time 25.5 Seconds (24.1-36.2)
[2023-10-18 09:57] LABS: Valproic Acid (Depakene) Level 51 ug/mL (50-100)
[2023-10-18 09:59] LABS: Lactic Acid 1.4 mmol/L (0.4-1.9)
[2023-10-18 10:01] LABS: AST(SGOT) 12 U/L (15-37); Alanine Aminotransfer ALT/SGPT 8 U/L (13-56); Albumin, Serum 2.8 g/dL (3.2-5.0); Alkaline Phosphatase 79 U/L (45-117); Anion Gap 9 (5-15); BUN 23 mg/dL (7-18); BUN/Creat Ratio 32.6 RATIO (10-20); Bilirubin, Direct 0.08 mg/dL (0.00-0.30); Calcium,Total 9.3 mg/dL (8.5-10.1); Chloride 106 mmol/L (98-107); Creatinine, Serum 0.71 mg/dL (0.55-1.02); EST Glomerular Filtration Rate 89 mL/min (>60); Est Glom Filt Rate - Afr Amer 107 mL/min (>60); Estimated Creatinine Clearance 53.58 ml/min; Glucose 101 mg/dL (74-106); Lipase 53 U/L (13-75); Potassium 3.8 mmol/L (3.5-5.1); Protein, Total 7.8 g/dL (6.4-8.2); Sodium Level 140 mmol/L (136-145)
[2023-10-18 10:38] VITALS: BP 91/58; PULSE 77; RESP 19; O2SAT 98
[2023-10-18 11:14] VITALS: BP 92/59; PULSE 92; RESP 15; TEMP 36.5; O2SAT 94
--- NOTE | 2023-10-18 11:16 | EX.PCM.CON.S ---
Assessment & Plan Assessment/Plan (1) Acute 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 with appendiceal abscess: PLAN: Plan Patient states she is tolerating diet as well as protein drinks currently got home from rehab on Monday. Does complain of some mild right lower quadrant discomfort. CT abdomen pelvis from yesterday was reviewed and the drain is no longer in place?patient tolerated removal well in the ER. Cultures were taken from the drain prior to pulling it in the ER. Patient did receive Zosyn 4.5 g IV x 1. Will continue Augmentin. Reviewing clinic clinic notes patient was admitted to [facility] from 09/07 through 09/22 for possible bowel obstruction, failure to thrive, dehydration. Patient did have Augmentin on DC and did follow-up with infectious disease-who did stop the antibiotics after the appointment mid September. Due to repeat CT with some fluid collections and still phlegmon in the right lower quadrant we will plan for additional antibiotics and plan to repeat CAT scan ideally in 1 to 2 weeks however patient will be on vacation in [place] from October 27 through . Discussed with patient we will plan to have her follow-up prior to going on vacation and get the CAT scan after her vacation but keep on antibiotics until she comes back. Okay to DC home. Discussed with patient that if she has increased pain nausea vomiting fevers recommend her calling office and letting us know as well as go to the ER as she may need IV antibiotics. Patient is agreeable with plan. Cecily Rudd M.D. Pager: [phone] [facility] [address] [place] [address], [address] [place] [address] Office: [phone] HPI Consult Data Date of Consult: 10/18/23 HPI Narrative HPI Narrative: MICK KOCH, is a 63 F who presents to the ER due to abnormal CAT scan and IR placed drain not in place. Patient was previously admitted due to perforated 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 with placement of IR drain back in early August. Patient was lost to follow-up after discharge. Just learned that patient was at [facility] from September 07 through . Patient then went to rehab and has been home since Monday from rehab. Patient states she is tolerating diet and taking protein drinks. Patient states that she did notice some right lower quadrant pain on Monday but still having bowel function denies any nausea or vomiting. Patient had CT abdomen pelvis yesterday which showed some phlegmon in the right lower quadrant and the drain is not currently in place. Patient has been off antibiotics since early/mid September. Currently her white blood count is within normal limits with no shift. Patient's albumin is 2.8 from 1.9 during her last hospitalization at [facility]. [facility] Medical History Hypotension Marijuana abuse Alcohol dependence ETOH abuse IBS (irritable bowel syndrome) Anxiety Depression Seizure Seizure disorder Home Medications ?Medication ?Instructions ?Recorded ?Last Taken ?Type clonazepam 0.25 mg disintegrating 0.25 mg PO PRN PRN Seizures 10/10/19 Unknown History tablet lacosamide 100 mg tablet 100 mg PO BID #60 tabs 08/25/23 10/18/23 Rx amoxicillin 875 mg-potassium 1 tab PO Q12H #20 tabs 09/05/23 10/18/23 Rx clavulanate 125 mg tablet ciprofloxacin HCl 500 mg tablet 500 mg PO Q12H #20 tabs 09/05/23 10/18/23 Rx acetaminophen 500 mg capsule 1,000 mg PO QHS 10/18/23 10/17/23 History alendronate 70 mg tablet 70 mg PO QWEEK 10/18/23 Unknown History amoxicillin 875 mg-potassium 1 tab PO Q12H 19 days #38 tabs 10/18/23 Unknown Rx clavulanate 125 mg tablet buspirone 7.5 mg tablet 7.5 mg PO BID 10/18/23 10/18/23 History calcium polycarbophil 625 mg 625 mg PO BID 10/18/23 10/18/23 History tablet (Fiber Laxative (calcium polycarbophil)) divalproex 500 mg tablet,extended 500 mg PO BID 10/18/23 10/18/23 History release 24 hr fluconazole 200 mg tablet 200 mg PO X1 #2 tabs 10/18/23 Unknown Rx (Diflucan) pantoprazole 40 mg tablet,delayed 40 mg PO DAILY 10/18/23 10/18/23 History release potassium chloride 20 mEq 20 meq PO DAILY 10/18/23 10/18/23 History tablet,extended release(part/cryst) sennosides 8.6 mg tablet (senna) 8.6 mg PO BID 10/18/23 10/18/23 History sertraline 50 mg tablet 50 mg PO DAILY 10/18/23 10/18/23 History Allergy/AdvReac Type Severity Reaction Status Date / Time erythromycin base Allergy TONGUE Verified 10/18/23 08:38 HALIMA Family History Sister Melanoma Father Prostate CA Surgical History Hx of appendectomy 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 Social History household members: none housing: apartment Smoking Status: Former smoker alcohol intake: former year quit: 2020 substance use type: marijuana ROS Constitutional Constitutional: Denies anorexia Eyes Eyes: Denies loss of central vision ENT HEENT: Denies dysphagia Cardiovascular Cardiovascular: Denies chest pain Respiratory/Chest Respiratory/Chest: Denies productive cough Gastrointestinal Gastrointestinal: Reports abdominal pain; Denies constipation, nausea or vomiting Genitourinary Genitourinary: Denies dysuria Musculoskeletal Musculoskeletal: Denies joint swelling Integumentary Integumentary: Denies jaundice Neurologic Neurologic: Denies focal weakness Endocrine Endocrinology: Denies palpitations Hematologic/Lymphatic Hematologic/Lymphatic: Denies easy bleeding Physical Exam Const alert, oriented x3, no apparent distress and healthy appearing General Appearance: cooperative HEENT normocephalic Resp normal respiratory effort Cardio regular rate GI soft to palpation; Negative for non-distended Palpation: tender RLQ (mild); Negative for guarding Extremity no clubbing, cyanosis or edema Neuro CN's II-XII intact bilaterally Psych mental status grossly normal Lab / Micro Data 10/18/23 09:14 10/18/23 09:14 Labs: Laboratory Results - last 24 hr 10/18/23 09:14: WBC 7.8, RBC 3.26 L, Hgb 9.9 L, Hct 31.3 L, MCV 96.0, MCH 30.4, MCHC 31.6 L, RDW Std Deviation 53.2 H, RDW Coeff of Yury 15.2 H, Plt Count 251, MPV 10.3, Immature Gran % (Auto) 0.600, Neut % (Auto) 66.2, Lymph % (Auto) 18.3 L, [place] % (Auto) 10.4 H, Eos % (Auto) 3.7, Baso % (Auto) 0.8, Absolute Neuts (auto) 5.1, Absolute Lymphs (auto) 1.42, Nucleated RBC % 0, PT 13.0, INR 1.0, APTT 25.5, Sodium 140, Potassium 3.8, Chloride 106, Carbon Dioxide 25.0, Anion Gap 9, BUN 23 H, Creatinine 0.71, Estim Creat Clear Calc 53.58, Est GFR (MDRD) Af Amer 107, Est GFR (MDRD) Non-Af 89, BUN/Creatinine Ratio 32.6 H, Glucose 101, Lactic Acid 1.4, Calcium 9.3, Total Bilirubin 0.30, Direct Bilirubin 0.08, AST 12 L, ALT 8 L, Alkaline Phosphatase 79, Total Protein 7.8, Albumin 2.8 L, Globulin 5.0 H, Lipase 53, Valproic Acid 51 Charges/Coding Multi Select Codes Visit Charges Office Visit/Consults: 41633 OP Consult L4
== END 2023-10-18 11:23 | disposition home or self-care (01) ==
PROVIDERS: Emergency Provider Emergency Medicine; PCP Nurse Practitioner Family; Visit Provider Emergency Medicine
DX: T85.528A Displacement of other gastrointestinal prosthetic devices, implants and grafts, initial encounter (principal); G40.909 Epilepsy, unspecified, not intractable, without status epilepticus; Y73.8 Miscellaneous gastroenterology and urology devices associated with adverse incidents, not elsewhere classified; K58.9 Irritable bowel syndrome, unspecified; Z79.899 Other long term (current) drug therapy; Z87.891 Personal history of nicotine dependence
CPT/HCPCS: 80048; 80076; 80164; 83605; 83690; 85025; 85610; 85730; 87040; 87070; 87075; 87077; 87186; 87205; 96365; 99283; J7030; A4216

== ENCOUNTER → 2023-11-06 | Outpatient (CLI) | payer MEDICAID, SELFPAY ==
--- NOTE | 2023-11-06 07:40 | CT_ITS ---
STUDY: CT ABDOMEN AND PELVIS WITH CONTRAST REASON FOR EXAM: Female, 63 years old. Appendiceal abscess. Drain was removed on October 18, 2023. RADIATION DOSAGE (If Supplied By Facility): CTDIvol = ( 12.31 ) mGy, DLP = ( 234.97 ) mGycm TECHNIQUE: Transaxial images were obtained from the dome of the diaphragm to the symphysis pubis with oral contrast. Oral and amp; IV Readi-CAT and amp; 100mL Isovue-370 was administered. Sagittal and coronal images were reconstructed. Individualized dose optimization techniques were used for this CT. COMPARISON: Comparison is made with prior study dated October 17, 2023. FINDINGS: The visualized lung bases are unremarkable. The visualized portions of the heart are within normal limits. Normal liver. Normal gallbladder and extrahepatic biliary system. Normal spleen. Normal pancreas. Normal bilateral adrenal glands. Normal right kidney. Stable 1.1 cm cyst in the anterior aspect of the left kidney. Normal visualized stomach. Persistent soft tissue density in the right lower quadrant at the site of the prior appendectomy suggestive of a phlegmon. It presently measures 3.4 cm x 4.7 cm. This has decreased in size as compared to prior study. There is deformity of the ascending colon at that site as well as focally dilated distal ileum with surrounding thickening of the wall. The previously seen subcentimeter well-circumscribed fluid collections along the medial aspect of the phlegmon are not present at this time. Normal abdominal aorta. Normal inferior vena cava. Normal retroperitoneum. Normal urinary bladder. Normal abdominal wall. Normal osseous structures. CT/Abdomen/Pelvis WITH Contrast IMPRESSION: Interval decrease in size of the phlegmon seen in the right lower quadrant at the post appendectomy site with persistent circumferential wall thickening of the distal ileum and deformity of the cecum/proximal ascending colon. The previously seen tiny well-circumscribed fluid collections along the medial aspect of the phlegmon have resolved. Electronically Signed: Nael Thomas MD at 14:55 EDT ,
== END | disposition home or self-care (01) ==
PROVIDERS: PCP Nurse Practitioner Family; Referring Provider Surgery; Visit Provider Surgery
DX: K35.33 Acute 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 with perforation, localized peritonitis, and gangrene, with abscess (principal)
CPT/HCPCS: 74177; Q9967

== ENCOUNTER → 2023-11-22 | Outpatient (CLI) | payer MEDICAID, SELFPAY ==
--- NOTE | 2023-11-22 13:31 | CT_ITS ---
STUDY: CT ABDOMEN AND PELVIS WITH CONTRAST REASON FOR EXAM: Female, 63 years old. F/u from appendiceal abscess -- WITH PO and IV contrast RADIATION DOSAGE (If Supplied By Facility): CTDIvol = ( 10.75 ) mGy, DLP = ( 232.25 ) mGycm TECHNIQUE: Transaxial images were obtained from the dome of the diaphragm to the symphysis pubis with oral contrast. Oral and amp;amp; IV Readi-CAT and amp;amp; 100mL Isovue-300 was administered. Sagittal and coronal images were reconstructed. Individualized dose optimization techniques were used for this CT. COMPARISON: Comparison is made with prior study dated November 06, 2023. FINDINGS: The visualized lung bases are unremarkable. The visualized portions of the heart are within normal limits. Normal liver. Normal gallbladder and extrahepatic biliary system. Normal spleen. Normal pancreas. Normal bilateral adrenal glands. Normal right kidney. Stable 1.1 semi a cyst in the anterior aspect of the left kidney. Normal visualized stomach. Normal small intestine. Normal colon. Persistent soft tissue prominence in the right lower quadrant. It presently measures 4.17 x 4.2 cm. This has improved as compared to prior study. Residual circumferential wall thickening of the terminal ileum as it enters the region of the cecum. Normal abdominal aorta. Normal inferior vena cava. Normal retroperitoneum. Normal urinary bladder. Normal abdominal wall. Normal osseous structures. CT/Abdomen/Pelvis WITH Contrast IMPRESSION: Slight improvement in the phlegmon at the operative site in the right lower quadrant with persistent circumferential wall thickening of the terminal ileum and mild increased markings in the surrounding peritoneal fat. Electronically Signed: Nael Thomas MD at 14:55 EDT ,
== END | disposition home or self-care (01) ==
LOC: CT 13:29
PROVIDERS: PCP Nurse Practitioner Family; Referring Provider Surgery; Visit Provider Surgery
DX: K35.33 Acute 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 with perforation, localized peritonitis, and gangrene, with abscess (principal)
CPT/HCPCS: 74177; Q9967

== ENCOUNTER → 2023-12-11 | Outpatient (CLI) | payer MEDICAID, SELFPAY ==
--- NOTE | 2023-12-11 14:56 | CT_ITS ---
STUDY: CT ABDOMEN AND PELVIS WITH CONTRAST REASON FOR EXAM: Female, 63 years old. Appendiceal abscess RADIATION DOSAGE (If Supplied By Facility): CTDIvol = ( 9.14 ) mGy, DLP = ( 235.77 ) mGycm TECHNIQUE: Oral and amp; IV Readi-CAT and amp; 75mL Isovue-370 was administered. Transaxial images were obtained from the dome of the diaphragm to the symphysis pubis in the portal venous phase. Multiplanar coronal and sagittal images were reformatted. Individualized Dose Optimization Techniques Were Used For This CT. COMPARISON: Prior studies dated: 11/22/2023 and 11/06/2023 FINDINGS: LOWER CHEST: Lung bases are clear. No cardiomegaly. Trace pericardial effusion. LIVER: The liver is normal in size, shape, and attenuation. No focal mass. GALLBLADDER AND BILIARY TREE: The gallbladder is normally distended. No gallstones. No gallbladder wall thickening or edema. No pericholecystic fluid. No intra- or extrahepatic biliary ductal dilation. PANCREAS: No focal cystic or solid mass. SPLEEN: Normal size without focal cystic or solid mass. ADRENAL GLANDS: No nodules. KIDNEYS AND URETERS: Normal renal size and position. No hydronephrosis or nephrolithiasis. Simple left renal cyst. No specific follow-up recommended. PERITONEUM: No free air. No significant ascites. BOWEL: The stomach is unremarkable. Normal caliber of the small bowel. Contrast passes throughout the small bowel and colon. There is prominent wall thickening at the terminal ileum and adjacent at the cecum. High density tissue/fluid seen posterior to the ileocecal junction with this area measuring approximately 3.6 x 2.6 x 2.8 cm. Compared to the most recent prior imaging from 11/22/2023, this area is increased in prominence. This measures significantly higher than simple fluid attenuation. Material tracks proximally along the psoas muscle. This was also present previously. LYMPH NODES: No enlarged mesenteric or retroperitoneal lymph nodes. VESSELS: The aorta is normal in caliber with mild atherosclerotic calcification. URINARY BLADDER: Unremarkable. REPRODUCTIVE ORGANS: Anteverted uterus. There is a soft tissue density seen posterior to the uterus which is unchanged from previous imaging. This measures 4.7 x 2.8 x 2.2 cm. ABDOMINAL WALL: No discrete abdominal or pelvic wall hernia. BONES: No lytic or blastic abnormality. Scoliotic curvature of the spine with mild degenerative change. CT/Abdomen/Pelvis WITH Contrast IMPRESSION: There is increased prominence of abnormal density adjacent to the ileocecal region. This measures significantly higher than fluid attenuation. This could be increased prominence of phlegmon. This is separate than the location of the original collection from previous imaging. Prominent wall thickening of the terminal ileum again noted. Contrast does pass through the small bowel and into the colon. Underlying mass could have this appearance, though the temporality of the finding argues more in favor for infectious process. Unchanged soft tissue density posterior to the uterus, possibly a fibroid. Electronically Signed: Harsh Ramirez MD at 23:44 EDT ,
[2023-12-11 15:43] LABS: CREATININE FINGERSTICK < 1.0 mg/dL (0.55-1.02); EGFR FINGERSTICK > 60.0000 mL/min (>60)
== END | disposition home or self-care (01) ==
PROVIDERS: PCP Nurse Practitioner Family; Referring Provider Surgery; Visit Provider Surgery
DX: K35.33 Acute 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 with perforation, localized peritonitis, and gangrene, with abscess (principal)
CPT/HCPCS: 74177; Q9967; A4216

== ENCOUNTER → 2024-02-07 | Outpatient (CLI) | payer MEDICARE, MEDICAID, SELFPAY ==
[2024-02-07 13:10] LABS: Absolute Neutrophil Count 3.7 X10^3/uL (2.0-7.7); Basophil# 0.06 X10^3/uL; Basophil% 0.9 % (0-1); Eosinophil# 0.24 X10^3/uL; Eosinophils% 3.7 % (0-5); Hematocrit 39.3 % (37-47); Hemoglobin 12.5 g/dL (12.0-15.0); Lymphocyte % 31.2 % (19-41); Mean Corp Hgb Conc 31.8 g/dL (32-36); Mean Corpuscular Hgb 28.5 pg (27.0-32.0); Mean Corpuscular Volume 89.7 fL (81-99); Mean Platelet Vol. 10.1 fl (6.2-12.0); Monocyte# 0.38 X10^3/uL; Monocyte% 5.9 % (0-10); NRBC Flagged by Analyzer 0 % (0-5); Neutrophil % 57.8 % (47-70); Platelet Count 297 K/mm3 (150-450); RBC Distribution Width CV 15.3 % (11.6-14.6); RBC Distribution Width SD 50.6 fl (35.1-43.9); Red Blood Count 4.38 M/mm3 (4.2-5.4); White Blood Count 6.4 K/mm3 (4.4-11.0)
[2024-02-07 13:23] LABS: Vitamin B12 552 pg/mL (211-911); Vitamin D,25 Hydroxy 30.5 ng/mL
[2024-02-07 13:39] LABS: ALB/GLOB Ratio 0.9 RATIO (0.9-2.4); AST(SGOT) 21 U/L (15-37); Alanine Aminotransfer ALT/SGPT 14 U/L (13-56); Albumin, Serum 3.8 g/dL (3.2-5.0); Alkaline Phosphatase 91 U/L (45-117); Anion Gap 5 (5-15); BUN 18 mg/dL (7-18); BUN/Creat Ratio 31.4 RATIO (10-20); Calcium,Total 9.5 mg/dL (8.5-10.1); Chloride 103 mmol/L (98-107); Creatinine, Serum 0.57 mg/dL (0.55-1.02); EST Glomerular Filtration Rate 112 mL/min (>60); Est Glom Filt Rate - Afr Amer 136 mL/min (>60); Globulin 4.2 g/dL (2.2-4.2); Glucose 115 mg/dL (74-106); Iron 68 ug/dL (50-170); Iron Binding Capacity,Total 438 ug/dL (250-450); Magnesium 2.1 mg/dL (1.6-2.6); PERCENT IRON SATURATION 15.5 % (15.0-55.0); Potassium 3.4 mmol/L (3.5-5.1); Sodium Level 138 mmol/L (136-145)
== END | disposition home or self-care (01) ==
LOC: VSLAB 11:23
PROVIDERS: PCP Nurse Practitioner Family; Visit Provider Nurse Practitioner Family
DX: G25.0 Essential tremor (principal); E43 Unspecified severe protein-calorie malnutrition; D50.9 Iron deficiency anemia, unspecified; E55.9 Vitamin D deficiency, unspecified
CPT/HCPCS: 36415; 80053; 82306; 82607; 83540; 83550; 83735; 84443; 85025

== ENCOUNTER 2024-04-08 14:35 | Emergency (ER) | payer MEDICARE, SELFPAY ==
[2024-04-08 14:35] VITALS: BP 118/84; PULSE 125; RESP 16; TEMP 36; O2SAT 100; BMI 16.0
--- NOTE | 2024-04-08 15:35 | EDS_ITS ---
HPI History of Present Illness Chief Complaint: Nausea/Vomiting/Diarrhea Narrative Narrative: 64-year-old female past medical history of colon carcinoma with colon resection is on oral chemotherapy, presents with a few days of nausea, vomiting, and diarrhea. She states that the vomiting started first. Over the last 24 hours she has had 3 or 4 episodes of vomiting. She denies any abdominal pain with this, no fevers or chills, but she is cold. She states that she went to urgent care, and she feels dehydrated. They sent her to the emergency department for evaluation and IV fluids. She denies any exacerbating or alleviating factors but states that the vomiting is improving and that Monday, 2 days ago was the worst. [facility] Medical History Hypotension Marijuana abuse Alcohol dependence ETOH abuse IBS (irritable bowel syndrome) Anxiety Depression Seizure Seizure disorder Home Medications ?Medication ?Instructions ?Recorded ?Last Taken ?Type clonazepam 0.25 mg disintegrating 0.25 mg PO PRN PRN Seizures 10/10/19 Unknown History tablet lacosamide 100 mg tablet 100 mg PO BID #60 tabs 08/25/23 10/18/23 Rx acetaminophen 500 mg capsule 1,000 mg PO QHS 10/18/23 10/17/23 History alendronate 70 mg tablet 70 mg PO QWEEK 10/18/23 Unknown History buspirone 7.5 mg tablet 7.5 mg PO BID 10/18/23 10/18/23 History calcium polycarbophil 625 mg 625 mg PO BID 10/18/23 10/18/23 History tablet (Fiber Laxative (calcium polycarbophil)) divalproex 500 mg tablet,extended 500 mg PO BID 10/18/23 10/18/23 History release 24 hr fluconazole 200 mg tablet 200 mg PO X1 #2 tabs 10/18/23 Unknown Rx (Diflucan) pantoprazole 40 mg tablet,delayed 40 mg PO DAILY 10/18/23 10/18/23 History release potassium chloride 20 mEq 20 meq PO DAILY 10/18/23 10/18/23 History tablet,extended release(part/cryst) sennosides 8.6 mg tablet (senna) 8.6 mg PO BID 10/18/23 10/18/23 History sertraline 50 mg tablet 50 mg PO DAILY 10/18/23 10/18/23 History amoxicillin 875 mg-potassium 1 tab PO BID #26 tabs 12/13/23 Unknown Rx clavulanate 125 mg tablet sulfamethoxazole 800 1 tab PO BID #26 tabs 12/13/23 Unknown Rx mg-trimethoprim 160 mg tablet (Bactrim DS) ondansetron 4 mg disintegrating 4 mg PO Q6H PRN nausea and 04/08/24 Unknown Rx tablet vomiting #15 tabs Allergy/AdvReac Type Severity Reaction Status Date / Time erythromycin base Allergy TONGUE Verified 04/08/24 14:38 PEELS Family History Sister Melanoma Father Prostate CA Surgical History 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 Social History household members: none housing: apartment Smoking Status: Former smoker alcohol intake: former year quit: 2020 substance use type: marijuana ROS ROS ED ROS Narrative Constitutional: No fever, no chills. Feels dehydrated. HEENT: No sore throat. No neck pain. No loss of vision. No rhinorrhea. Cardiovascular: No chest pain. No palpitations. No pedal edema. Respiratory: No cough, no shortness of breath. Abdominal: No abdominal pain. Multiple episodes of nausea, vomiting, and diarr hea. Vomiting improved over the last 2 days. Genitourinary: No dysuria. No hematuria. Musculoskeletal: No myalgias. No arthralgias. Neurologic: No headaches. No dizziness. No lightheadedness. Skin: No rash. No change in color. EXAM Physical Exam Narrative Exam Narrative: Afebrile. Vital signs noted. Mildly cachectic. Cardiovascular examination reveals a tachycardia that is regular. Lungs are clear to auscultation bilaterally. Abdomen is soft and nontender without guarding or rebound. Positive bowel sounds. Neurological examination is nonfocal and nonlateralizing. Const Vital Signs: 04/08/24 14:35 04/08/24 16:35 Temperature 96.8 F L Temperature Source Temporal Pulse Rate 125 H 105 H Respiratory Rate 16 18 Blood Pressure 118/84 H 128/72 H Blood Pressure Mean 95 90 Pulse Ox 100 98 Oxygen Delivery Method Room Air Room Air MDM MDM MDM Narrative Medical decision making narrative: Differential diagnosis includes but not limited to gastroenteritis versus partial small bowel obstruction versus pancreatitis. I have low suspicion for the latter 2 diagnoses based on her history and physical. Given her tachycardia, I feel she may be dehydrated or have some other electrolyte imbalance from all the nausea vomiting and diarrhea that she has had over the last few days. She was bolused normal saline 1 L intravenously. I reviewed her laboratory work and she has normal white count of 8.0 with hemoglobin 13.3, hematocrit 37.2, platelet count normal at 275. Electrolyte panel does show hypokalemia of 2.7. BUN 14 and creatinine 0.66, glucose 113. No evidence of profound dehydration. Regarding her hypokalemia, she states that she had pills stuck in her throat all morning. I have low concern for pill esophagitis or obstruction as she was able to pass a p.o. challenge of fluids here without difficulty. I did offer her to replace her potassium orally but she states she has the medication at home that she will take. I wrote her prescription for Zofran ODT's. Lipase is normal at 24 so I doubt pancreatitis. While her urine may show bacteria there are 0-5 WBCs. I do not feel antibiotics are indicated. At this point in time, she is motivated for discharge even after IV fluids. 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 Return instructions reviewed. Disposition is discharged home in stable condition. History & Record Review Discussion w/independent historian: Patient Lab Data Attestation: I reviewed the patient's lab results. Labs: Laboratory Results - last 24 hr 04/08/24 04/08/24 04/08/24 15:45 16:48 16:50 WBC 8.0 RBC 4.25 Hgb 13.3 Hct 37.2 MCV 87.5 MCH 31.3 MCHC 35.8 RDW Std Deviation 56.0 H RDW Coeff of Yury 17.8 H Plt Count 275 MPV 8.8 Immature Gran % (Auto) 0.400 Neut % (Auto) 68.4 Lymph % (Auto) 25.0 [place] % (Auto) 5.5 Eos % (Auto) 0.1 Baso % (Auto) 0.6 Absolute Neuts (auto) 5.4 Absolute Lymphs (auto) 1.99 Nucleated RBC % 0 Sodium 136 Potassium 2.7 L* Chloride 101 Carbon Dioxide 24.0 Anion Gap 11 BUN 14 Creatinine 0.66 Estim Creat Clear Calc 46.69 Est GFR (MDRD) Af Amer 116 Est GFR (MDRD) Non-Af 96 BUN/Creatinine Ratio 21.3 H Glucose 113 H Calcium 9.5 Magnesium 1.9 Total Bilirubin 0.50 AST 18 ALT 11 L Alkaline Phosphatase 45 Total Protein 7.4 Albumin 3.8 Globulin 3.6 Albumin/Globulin Ratio 1.1 Lipase 24 Urine Color [place] Urine Clarity Clear Urine pH 6.0 Ur Specific [place] 1.015 Urine Protein 30 H Urine Glucose (UA) Normal Urine Ketones 15 H Urine Occult Blood 10 H Urine Nitrite Negative Urine Bilirubin Negative Urine Urobilinogen Normal Ur Leukocyte Esterase 25 H Urine RBC 0-5 SEEN Urine WBC 0-5 SEEN Ur Squamous Epith Cells 0-5 SEEN Ur Transition Epith Cell 0-5 SEEN Amorphous Sediment 1+ Urine Bacteria 2+ Urine Mucus 3+ Discharge Plan Triage Chief Complaint: Nausea/Vomiting/Diarrhea ED Provider: Ankit Marsh Dx/Rx/DC Orders Clinical Impression: Nausea vomiting and diarrhea, Hypokalemia, History of colon cancer Instructions: ED Hypokalemia, ED Vomit Diarrhea Nonspec Adult Prescriptions: New ondansetron 4 mg tablet,disintegrating 4 mg PO Q6H PRN (Reason: nausea and vomiting) Qty: 15 0RF No Action clonazepam 0.25 MG tablet,disintegrating 0.25 mg PO PRN PRN (Reason: Seizures) lacosamide 100 mg Tablet 100 mg PO BID Qty: 60 1RF divalproex 500 mg tablet extended release 24 hr 500 mg PO BID calcium polycarbophil [Fiber Laxative (ca polycarbo)] 625 mg tablet 625 mg PO BID pantoprazole 40 mg tablet,delayed release (DR/EC) 40 mg PO DAILY potassium chloride 20 mEq tablet,ER particles/crystals 20 meq PO DAILY sertraline 50 mg tablet 50 mg PO DAILY sennosides [senna] 8.6 mg tablet 8.6 mg PO BID acetaminophen 500 mg capsule 1,000 mg PO QHS alendronate 70 mg tablet 70 mg PO QWEEK Patient Comments: PT HASNT PICKED UP OR STARTED YET buspirone 7.5 mg tablet 7.5 mg PO BID Patient Comments: PT HASNT PICKED UP OR STARTED YET fluconazole [Diflucan] 200 mg tablet 200 mg PO X1 Qty: 2 0RF Rx Instructions: Take 1 tab with signs of yeast infection, if no results in 72 hours take the other sulfamethoxazole-trimethoprim [Bactrim DS] 800-160 mg tablet 1 tab PO BID Qty: 26 0RF amoxicillin-pot clavulanate 875-125 mg tablet 1 tab PO BID Qty: 26 0RF Primary Care Provider: Christie Saenz Referrals: Christie Saenz, PLATEMAN-C [Primary Care Provider] - 3-5 Days if not improving Activity Restrictions/Additional Instructions: Take your potassium supplementation as previously directed. Have it rechecked in the next few days. Return with inability to tolerate fluids, new or worsening symptoms. Follow-up with your tandem mill operator/oncologist Dr. Poole as well. Print Language: Bulgarian Disposition Disposition: Home, Self Care
[2024-04-08] MEDS: 0.9% Normal Saline (1000mL) 1,000 ML 1000 ML IV (15:50)
[2024-04-08 15:58] LABS: Absolute Lymphocyte Count 1.99 X10^3/uL (0.83-4.51); Absolute Neutrophil Count 5.4 X10^3/uL (2.0-7.7); Basophil# 0.05 X10^3/uL; Basophil% 0.6 % (0-1); Eosinophil# 0.01 X10^3/uL; Eosinophils% 0.1 % (0-5); Hematocrit 37.2 % (37-47); Hemoglobin 13.3 g/dL (12.0-15.0); Lymphocyte # 1.99 X10^3/ul (0.83-4.51); Mean Corp Hgb Conc 35.8 g/dL (32-36); Mean Corpuscular Hgb 31.3 pg (27.0-32.0); Mean Corpuscular Volume 87.5 fL (81-99); Mean Platelet Vol. 8.8 fl (6.2-12.0); Monocyte# 0.44 X10^3/uL; Monocyte% 5.5 % (0-10); NRBC Flagged by Analyzer 0 % (0-5); Neutrophil # 5.44 X10^3/uL (2.7-7.7); Neutrophil % 68.4 % (47-70); Platelet Count 275 K/mm3 (150-450); RBC Distribution Width CV 17.8 % (11.6-14.6); Red Blood Count 4.25 M/mm3 (4.2-5.4)
[2024-04-08 16:35] VITALS: BP 128/72; PULSE 105; RESP 18; O2SAT 98
[2024-04-08 16:36] LABS: ALB/GLOB Ratio 1.1 RATIO (0.9-2.4); AST(SGOT) 18 U/L (15-37); Alanine Aminotransfer ALT/SGPT 11 U/L (13-56); Albumin, Serum 3.8 g/dL (3.2-5.0); Alkaline Phosphatase 45 U/L (45-117); Anion Gap 11 (5-15); BUN 14 mg/dL (7-18); BUN/Creat Ratio 21.3 RATIO (10-20); Calcium,Total 9.5 mg/dL (8.5-10.1); Chloride 101 mmol/L (98-107); Creatinine, Serum 0.66 mg/dL (0.55-1.02); EST Glomerular Filtration Rate 96 mL/min (>60); Est Glom Filt Rate - Afr Amer 116 mL/min (>60); Estimated Creatinine Clearance 46.69 ml/min; Globulin 3.6 g/dL (2.2-4.2); Glucose 113 mg/dL (74-106); Lipase 24 U/L (13-75); Potassium 2.7 mmol/L (3.5-5.1); Protein, Total 7.4 g/dL (6.4-8.2); Sodium Level 136 mmol/L (136-145)
[2024-04-08 16:54] LABS: Magnesium 1.9 mg/dL (1.6-2.6)
[2024-04-08 17:06] LABS: Color, Urine Amber (Yellow); Glucose, Dipstick Normal (Normal); Ketone-Dipstick 15 mg/dl (Negative); Leukocyte Esterase-Dipstick 25 /ul (Negative); Nitrite-Dipstick Negative (Negative); Occult Blood-Urine 10 /ul (Negative); Protein-Dipstick 30 mg/dl (Negative); Specific Gravity, Urine 1.015 (1.002-1.030); Urine Bilirubin Dipstick Negative (Negative); Urine Clarity Clear (Clear); Urine Urobilinogen Normal (Normal)
[2024-04-08 17:14] LABS: Red Blood Cells-Urine 0-5 SEEN /hpf (0-5); White Blood Cells 0-5 SEEN /hpf (0-5)
[2024-04-08 17:15] LABS: Amorphous Sediment 1+; Bacteria 2+ /hpf (None Seen); Mucous, Urine 3+ /hpf (<or=2+); Squamous Epithelial Cells - UA 0-5 SEEN /hpf (5-10); Transitional Epithelial - Ur 0-5 SEEN /hpf (0-5)
== END 2024-04-08 18:33 | disposition home or self-care (01) ==
PROVIDERS: Emergency Provider Emergency Medicine; PCP Nurse Practitioner Family; Visit Provider Emergency Medicine
DX: R11.2 Nausea with vomiting, unspecified (principal); G40.909 Epilepsy, unspecified, not intractable, without status epilepticus; R19.7 Diarrhea, unspecified; E87.6 Hypokalemia; R00.0 Tachycardia, unspecified; F32.A Depression, unspecified; F41.9 Anxiety disorder, unspecified; Z79.899 Other long term (current) drug therapy; Z87.891 Personal history of nicotine dependence; Z85.038 Personal history of other malignant neoplasm of large intestine; Z92.21 Personal history of antineoplastic chemotherapy
CPT/HCPCS: 80053; 81001; 83690; 83735; 85025; 96360; 99283; A4216

== ENCOUNTER 2024-07-11 10:59 | Emergency (ER) | payer MEDICARE, SELFPAY ==
[2024-07-11 11:00] VITALS: BP 124/86; PULSE 112; RESP 18; TEMP 36.1; O2SAT 100; BMI 15.7
--- NOTE | 2024-07-11 11:17 | EX.ED.DYSGE1 ---
HPI History of Present Illness Chief Complaint: Nausea/Vomiting Detail of Chief Complaint: Vomiting and concern for dehydration Informant: patient Narrative Narrative: Patient presents to the emergency department with complaint of vomiting that started yesterday. Patient states that she threw up about 5 or 6 times was mostly just dry heaves. She feels like she might be dehydrated. Patient states she is currently receiving oral chemotherapy for treatment of colon cancer. She is also been having some right lower quadrant abdominal pain for about 2 weeks. She denies fevers or chills or sweats. She has a CT scan scheduled for today 2:00 through the [facility]. Patient was told to come to the ER to get some IV fluids as she is concerned she may be dehydrated. She denies any urinary symptoms. She denies blood in her stool or hematemesis. She tells me she had a her appendix removed last year and at that time they also found colon cancer and did partial colectomy. Patient also had part of her fallopian tube on the right resected [facility] Medical History Hypotension Marijuana abuse Alcohol dependence ETOH abuse IBS (irritable bowel syndrome) Anxiety Depression Seizure Seizure disorder Home Medications ?Medication ?Instructions ?Recorded ?Last Taken ?Type clonazepam 0.25 mg disintegrating 0.25 mg PO PRN PRN Seizures 10/10/19 Unknown History tablet lacosamide 100 mg tablet 100 mg PO BID #60 tabs 08/25/23 10/18/23 Rx acetaminophen 500 mg capsule 1,000 mg PO QHS 10/18/23 10/17/23 History alendronate 70 mg tablet 70 mg PO QWEEK 10/18/23 Unknown History buspirone 7.5 mg tablet 7.5 mg PO BID 10/18/23 10/18/23 History calcium polycarbophil 625 mg 625 mg PO BID 10/18/23 10/18/23 History tablet (Fiber Laxative (calcium polycarbophil)) divalproex 500 mg tablet,extended 500 mg PO BID 10/18/23 10/18/23 History release 24 hr fluconazole 200 mg tablet 200 mg PO X1 #2 tabs 10/18/23 Unknown Rx (Diflucan) pantoprazole 40 mg tablet,delayed 40 mg PO DAILY 10/18/23 10/18/23 History release potassium chloride 20 mEq 20 meq PO DAILY 10/18/23 10/18/23 History tablet,extended release(part/cryst) sennosides 8.6 mg tablet (senna) 8.6 mg PO BID 10/18/23 10/18/23 History sertraline 50 mg tablet 50 mg PO DAILY 10/18/23 10/18/23 History amoxicillin 875 mg-potassium 1 tab PO BID #26 tabs 12/13/23 Unknown Rx clavulanate 125 mg tablet sulfamethoxazole 800 1 tab PO BID #26 tabs 12/13/23 Unknown Rx mg-trimethoprim 160 mg tablet (Bactrim DS) ondansetron 4 mg disintegrating 4 mg PO Q6H PRN nausea and 04/08/24 Unknown Rx tablet vomiting #15 tabs ondansetron 4 mg disintegrating 4 mg PO Q8H PRN PRN Nausea #10 tabs 07/11/24 Unknown Rx tablet Allergy/AdvReac Type Severity Reaction Status Date / Time erythromycin base Allergy TONGUE Verified 04/08/24 14:38 PEELS Family History Sister Melanoma Father Prostate CA Surgical History 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 Social History household members: none housing: apartment Smoking Status: Former smoker alcohol intake: former year quit: 2020 substance use type: marijuana ROS ROS ED Review of Systems ROS Unobtainable: other Constitutional Constitutional ED: Reports lethargy; Denies chills, fever(s), sweats or weight loss Eyes Eyes: Denies blurry vision, change in vision or diplopia ENT ENT ED: Denies rhinorrhea or sore throat Cardiovascular Cardiovascular: Denies chest pain, orthopnea or racing heartbeat Respiratory/Chest Respiratory/Chest: Denies cough, dyspnea, dyspnea on exertion, orthopnea or sputum Gastrointestinal Gastrointestinal: Reports abdominal pain, nausea and vomiting; Denies diarrhea Genitourinary Genitourinary ED: Denies dysuria, hematuria or urinary frequency Musculoskeletal Musculoskeletal: Denies arthralgias, back pain, myalgias or neck pain Integumentary Denies abscess, Abrasions or rash Neurologic Neurologic: Denies headache(s) or weakness Psychiatric Psychiatric: Denies anxiety, depression or suicidal thoughts Endocrine Endocrinology: Denies polydipsia, polyphagia or polyuria Hematologic/Lymphatic Hematologic/Lymphatic: Denies easy bleeding, easy bruising or lymphadenopathy Allergic/Immunologic Allergic/Immunologic ED: Denies mouth swelling, tongue swelling or urticaria EXAM Physical Exam Const Vital Signs: 07/11/24 11:00 07/11/24 13:00 07/11/24 13:22 Temperature 96.9 F L 98.3 F Temperature Source Temporal Pulse Rate 112 H 99 99 Respiratory Rate 18 16 16 Blood Pressure 124/86 H 122/84 H 122/84 H Blood Pressure Mean 98 96 96 Pulse Ox 100 98 98 Oxygen Delivery Method Room Air Room Air Positive well nourished and well developed General Appearance ED: well developed and NAD HEENT Reports TM's clear and moist mucous membranes normocephalic and atraumatic; Negative for trauma or tenderness Tympanic Membrane ED: Yes TM's clear Eyes PERRL and EOMs intact bilaterally General Eye ED: Negative for pale conjunctiva or scleral icterus Neck no lymphadenopathy, supple and no JVD General: Negative for tenderness Chest Wall inspection of chest normal and palpation of chest normal Chest: Negative for tenderness Resp normal respiratory effort and clear to auscultation bilaterally Effort and Inspection: Negative for respiratory distress or pain with movement Auscultation: Negative for rhonchi, wheezes or diminished lung sounds Cardio regular rate, regular rhythm, S1 normal heart sound, S2 normal heart sound and no murmurs Peripheral Pulses: pulses 2+ throughout GI normal to inspection, nondistended, normoactive bowel sounds, soft to palpation, non-distended and no masses GI Narrative: Mild tenderness over right lower quadrant with some guarding. There is no rebound, rigidity, or peritoneal signs. No masses palpated. Back/Spine no CVA tenderness and no thoracic nor lumbar tenderness Extremity normal to inspection General Extremety ED: Negative for edema General Extremity: Negative for edema Neuro oriented x3, CN's II-XII intact bilaterally, no sensory deficits noted and gait normal Sensorium / Orientation: awake, alert, oriented to person, oriented to place and oriented to time Motor Exam: strength 5/5 throughout and strength abnormal Psych mental status grossly normal Skin no rashes or lesions noted and no wounds MDM MDM MDM Narrative Medical decision making narrative: Patient presents to the emergency department thinking she is dehydrated and was told she needed to come to the ER to get fluids. She is felt this way before after chemo. She scheduled to have a CT scan of her abdomen pelvis today [facility]. She has had abdominal pain for about 2 weeks in the same area where she had her appendix removed and partial colectomy due to a colon cancer. IV line established. She was given a liter normal saline fluid bolus. CBC with differential obtained showed white count 11.5 with platelet count of 309. Hemoglobin 11.1. Chemistries unremarkable. LFTs were unremarkable. Lipase was 56. After fluids she felt markedly improved. I ordered a urinalysis which she is going to be able to give a sample but would like to leave so that she can make her appointment at the clinic to have her CT scan done. I offered to do it here at [facility] however she states she would prefer to have it done at the clinic as she has some questions for the doctor there. The urinalysis obtained was normal without signs of infection. Lab Data Attestation: I reviewed the patient's lab results. Labs: Laboratory Results - last 24 hr 07/11/24 07/11/24 07/11/24 11:30 13:19 13:36 WBC 11.5 H RBC 3.16 L Hgb 11.1 L Hct 31.4 L MCV 99.4 H MCH 35.1 H MCHC 35.4 RDW Std Deviation 60.1 H RDW Coeff of [place]ury 16.2 H Plt Count 309 MPV 9.1 Immature Gran % (Auto) 0.900 Neut % (Auto) 76.8 H Lymph % (Auto) 15.4 L [place] % (Auto) 6.6 Eos % (Auto) 0.0 Baso % (Auto) 0.3 Absolute Neuts (auto) 8.9 H Absolute Lymphs (auto) 1.77 Nucleated RBC % 0 Sodium 137 Potassium 3.4 Chloride 99 Carbon Dioxide 23.1 Anion Gap 15 BUN 19 Creatinine 0.72 Estim Creat Clear Calc 46.24 L Est GFR (MDRD) Non-Af 92 BUN/Creatinine Ratio 25.9 H Glucose 116 H Calcium 9.5 Total Bilirubin 0.55 AST 23 ALT 10 Alkaline Phosphatase 56 Total Protein 7.5 Albumin 4.6 Globulin 2.9 Albumin/Globulin Ratio 1.6 Lipase 56 Urine Color Yellow Urine Clarity Clear Urine pH 6.5 Ur Specific [place] 1.010 Urine Protein TNP Urine Glucose (UA) Normal Urine Ketones Negative Urine Occult Blood 10 H Urine Nitrite Negative Urine Bilirubin Negative Urine Urobilinogen Normal Ur Leukocyte Esterase Negative Urine RBC 0-5 SEEN Urine WBC 0-5 SEEN Ur Squamous Epith Cells 0 SEEN Urine Bacteria 0 SEEN Hyaline Casts 0-5 SEEN Fine Granular Casts 0-5 SEEN Urine Mucus 0 SEEN U Random Total Protein 13.1 H Discharge Plan Triage Chief Complaint: Nausea/Vomiting ED Provider: Milagro Ying Dx/Rx/DC Orders Clinical Impression: Vomiting, Abdominal pain Instructions: ED Abdominal Pain Unkn Cause Fem, ED Vomiting (Adult) Prescriptions: New ondansetron 4 mg tablet,disintegrating 4 mg PO Q8H PRN PRN (Reason: Nausea) Qty: 10 0RF No Action clonazepam 0.25 MG tablet,disintegrating 0.25 mg PO PRN PRN (Reason: Seizures) lacosamide 100 mg Tablet 100 mg PO BID Qty: 60 1RF divalproex 500 mg tablet extended release 24 hr 500 mg PO BID calcium polycarbophil [Fiber Laxative (ca polycarbo)] 625 mg tablet 625 mg PO BID pantoprazole 40 mg tablet,delayed release (DR/EC) 40 mg PO DAILY potassium chloride 20 mEq tablet,ER particles/crystals 20 meq PO DAILY sertraline 50 mg tablet 50 mg PO DAILY sennosides [senna] 8.6 mg tablet 8.6 mg PO BID acetaminophen 500 mg capsule 1,000 mg PO QHS alendronate 70 mg tablet 70 mg PO QWEEK Patient Comments: PT HASNT PICKED UP OR STARTED YET buspirone 7.5 mg tablet 7.5 mg PO BID Patient Comments: PT HASNT PICKED UP OR STARTED YET fluconazole [Diflucan] 200 mg tablet 200 mg PO X1 Qty: 2 0RF Rx Instructions: Take 1 tab with signs of yeast infection, if no results in 72 hours take the other ondansetron 4 mg tablet,disintegrating 4 mg PO Q6H PRN (Reason: nausea and vomiting) Qty: 15 0RF sulfamethoxazole-trimethoprim [Bactrim DS] 800-160 mg tablet 1 tab PO BID Qty: 26 0RF amoxicillin-pot clavulanate 875-125 mg tablet 1 tab PO BID Qty: 26 0RF Primary Care Provider: Aubrey Lopez Referrals: Aubrey Lopez, SENIOR HADOOP DEVELOPER-C [Primary Care Provider] - Activity Restrictions/Additional Instructions: Keep your appointment to have CT scan of your abdomen pelvis performed today. Return for persistent vomiting, worsening pain, fever, or condition worsening) Print Language: Estonian Disposition Disposition: Home, Self Care Discharge Date/Time: 07/11/24 13:22
[2024-07-11] MEDS: 0.9% Normal Saline (1000mL) 1,000 ML 999 ML IV (11:32)
[2024-07-11 11:44] LABS: Absolute Lymphocyte Count 1.77 X10^3/uL (0.83-4.51); Absolute Neutrophil Count 8.9 X10^3/uL (2.0-7.7); Basophil# 0.04 X10^3/uL; Basophil% 0.3 % (0-1); Hematocrit 31.4 % (37-47); Hemoglobin 11.1 g/dL (12.0-15.0); Lymphocyte # 1.77 X10^3/ul (0.83-4.51); Lymphocyte % 15.4 % (19-41); Mean Corp Hgb Conc 35.4 g/dL (32-36); Mean Corpuscular Hgb 35.1 pg (27.0-32.0); Mean Corpuscular Volume 99.4 fL (81-99); Mean Platelet Vol. 9.1 fl (6.2-12.0); Monocyte# 0.76 X10^3/uL; Monocyte% 6.6 % (0-10); NRBC Flagged by Analyzer 0 % (0-5); Neutrophil # 8.86 X10^3/uL (2.7-7.7); Neutrophil % 76.8 % (47-70); Platelet Count 309 K/mm3 (150-450); RBC Distribution Width CV 16.2 % (11.6-14.6); RBC Distribution Width SD 60.1 fl (35.1-43.9); Red Blood Count 3.16 M/mm3 (4.2-5.4); White Blood Count 11.5 K/mm3 (4.4-11.0)
[2024-07-11 12:01] LABS: ALB/GLOB Ratio 1.6 RATIO (0.9-2.4); AST(SGOT) 23 U/L (<=31); Alanine Aminotransfer ALT/SGPT 10 U/L (<=34); Albumin, Serum 4.6 g/dL (3.4-4.8); Alkaline Phosphatase 56 U/L (35-104); Anion Gap 15 (5-15); BUN 19 mg/dL (4-19); BUN/Creat Ratio 25.9 RATIO (10-20); Calcium,Total 9.5 mg/dL (7.6-11.0); Carbon Dioxide 23.1 mmol/L (21.0-32.0); Chloride 99 mmol/L (98-108); Creatinine, Serum 0.72 mg/dL (0.70-1.20); EST Glomerular Filtration Rate 92 (>60); Estimated Creatinine Clearance 46.24 ml/min (50-250); Globulin 2.9 g/dL (2.2-4.2); Glucose 116 mg/dL (70-99); Lipase 56 U/L (13-75); Potassium 3.4 mmol/L (3.3-5.1); Protein, Total 7.5 g/dL (5.9-8.4); Sodium Level 137 mmol/L (133-145); Total Bilirubin 0.55 mg/dL (0.00-1.30)
[2024-07-11 13:00] VITALS: BP 122/84; PULSE 99; RESP 16; O2SAT 98
[2024-07-11 13:22] VITALS: BP 122/84; PULSE 99; RESP 16; TEMP 36.8; O2SAT 98
[2024-07-11 13:28] LABS: Bacteria 0 SEEN /hpf (None Seen); Mucous, Urine 0 SEEN /hpf (<or=2+); Squamous Epithelial Cells - UA 0 SEEN /hpf (5-10)
[2024-07-11 13:32] LABS: Color, Urine Yellow (Yellow); Glucose, Dipstick Normal (Normal); Ketone-Dipstick Negative (Negative); Leukocyte Esterase-Dipstick Negative /ul (Negative); Nitrite-Dipstick Negative (Negative); Occult Blood-Urine 10 /ul (Negative); Urine Bilirubin Dipstick Negative (Negative); Urine Clarity Clear (Clear); Urine Urobilinogen Normal (Normal); Urine pH 6.5 (5.0 - 8.0)
[2024-07-11 13:44] LABS: Red Blood Cells-Urine 0-5 SEEN /hpf (0-5); White Blood Cells 0-5 SEEN /hpf (0-5)
[2024-07-11 13:46] LABS: Fine Granular Cast- Urine 0-5 SEEN /lpf (0-5); Hyaline Cast 0-5 SEEN /lpf (0-5)
[2024-07-11 13:55] LABS: Protein, Urine (Random) 13.1 mg/dL (0.0-12.0)
== END 2024-07-11 13:22 | disposition home or self-care (01) ==
PROVIDERS: Emergency Provider Emergency Medicine; Referring Provider Emergency Medicine; Visit Provider Emergency Medicine
DX: R11.2 Nausea with vomiting, unspecified (principal); G40.909 Epilepsy, unspecified, not intractable, without status epilepticus; F10.21 Alcohol dependence, in remission; R10.31 Right lower quadrant pain; E86.0 Dehydration; F32.A Depression, unspecified; F41.9 Anxiety disorder, unspecified; Z79.899 Other long term (current) drug therapy; Z90.49 Acquired absence of other specified parts of digestive tract; Z87.891 Personal history of nicotine dependence
CPT/HCPCS: 80053; 81001; 83690; 84156; 85025; 96360; 96361; 99283; A4216; J2405

== ENCOUNTER 2024-09-04 15:29 | Inpatient (IN) | payer MEDICARE, SELFPAY ==
[2024-09-04 15:40] VITALS: BMI 15.5
[2024-09-04 15:41] VITALS: BP 92/59; PULSE 98; RESP 16; TEMP 36.8; O2SAT 96
[2024-09-04] MEDS: HYDROmorphone 2 MG TABLET PO (18:49)
[2024-09-04] MEDS: HYDROmorphone 2 MG TABLET 4 MG PO (20:34)
[2024-09-04] MEDS: Acetaminophen 500 MG Tablet PO (20:35)
--- NOTE | 2024-09-04 21:19 | PCM.HP.STD ---
HPI - General General Date of Admission: 09/04/24 Date of Service: 09/04/24 Chief Complaint: Here for rehabilitation. HPI Narrative MICK KOCH, is a 64 Female who presents with followin08/28/2024 Admit to [facility]. Mick has past medical history notable for epilepsy, failure to thrive, low BMI, cecal adenocarcinoma (s/p laparoscopic ileocecectomy 01/03/24) complicated by local recurrence (s/p adjuvant capecitabine), s/p exploratory laparotomy, extensive adhesiolysis, retroperitoneal mass resection with en block resection of right fallopian tube, right oophorectomy, small bowel resection with revision of iliac colic anastomosis, ureteral stent placement, and femoral nerve ligation 08/28/2024. Overall, patient progressing fairly well however does have notable postoperative pain and expected femoral nerve deficits. Pain management was consulted to assist management of postoperative pain. Patient with hemoglobin drift 7.1 on 08/30/2024, transfused 2 units PRBC and incremented appropriately. NG tube and car was removed 08/30/2024 and patient with signs of return of bowel function on 08/31/2024, advanced to GI soft diet, oralized pain medications 09/01/2024. Patient witn nausea/vomiting on night of 09/02/2024, and backed down to NPO, 09/03/2024 KUB showed mildly dilated loops of bowel. Her diet was advanced to clears and subsequently to GI soft with Remeron added for appetite stimulation. She was skilled for SNF for additional rehabilitation and discharged. 09/04/2024 Admit to TCU with debility, here for rehabilitation, strengthening, prior to discharge home alone. [facility] Medical History (Updated 09/04/24 @ 21:[address] Qamar Smith MD) Seizure disorder Hypotension Marijuana abuse Alcohol dependence ETOH abuse IBS (irritable bowel syndrome) Anxiety Depression Seizure Home Medications ?Medication ?Instructions ?Recorded ?Last Taken ?Type clonazepam 0.25 mg disintegrating 0.25 mg PO PRN PRN Seizures 10/10/19 Unknown History tablet lacosamide 100 mg tablet 100 mg PO BID #60 tabs 08/25/23 10/18/23 Rx acetaminophen 500 mg capsule 500 - 1,000 mg PO Q6H Pain 10/18/23 09/04/24 06:35 History alendronate 70 mg tablet 70 mg PO QWEEK Bone Health 10/18/23 Unknown History buspirone 7.5 mg tablet 7.5 mg PO DAILY Mood 10/18/23 09/04/24 08:50 History calcium polycarbophil 625 mg 625 mg PO BID 10/18/23 10/18/23 History tablet (Fiber Laxative (calcium polycarbophil)) divalproex 500 mg tablet,extended 500 mg PO BID Epilesy 10/18/23 09/02/24 History release 24 hr fluconazole 200 mg tablet 200 mg PO X1 #2 tabs 10/18/23 Unknown Rx (Diflucan) pantoprazole 40 mg tablet,delayed 40 mg PO DAILY 10/18/23 10/18/23 History release potassium chloride 20 mEq 20 meq PO DAILY 10/18/23 10/18/23 History tablet,extended release(part/cryst) sennosides 8.6 mg tablet (senna) 8.6 mg PO BID 10/18/23 10/18/23 History sertraline 50 mg tablet 50 mg PO DAILY Mood 10/18/23 09/04/24 08:50 History amoxicillin 875 mg-potassium 1 tab PO BID #26 tabs 12/13/23 Unknown Rx clavulanate 125 mg tablet sulfamethoxazole 800 1 tab PO BID #26 tabs 12/13/23 Unknown Rx mg-trimethoprim 160 mg tablet (Bactrim DS) ondansetron 4 mg disintegrating 4 mg PO Q6H PRN nausea and 04/08/24 Unknown Rx tablet vomiting #15 tabs ondansetron 4 mg disintegrating 4 mg PO Q8H PRN PRN Nausea #10 tabs 07/11/24 Unknown Rx tablet enoxaparin 30 mg/0.3 mL 30 mg subcut Q24H DVT Prophylaxis 09/04/24 Unknown History subcutaneous syringe gabapentin 100 mg capsule 100 mg PO QHS Nerve Pain 09/04/24 09/04/24 06:35 History hydromorphone 2 mg tablet 1 - 2 mg PO Q4H PRN pain (scale 09/04/24 09/04/24 08:45 History score 7-10) lidocaine 4 % topical patch 2 patch topical DAILY Pain 09/04/24 Unknown History (Lidocaine Pain Relief) methocarbamol 500 mg tablet 750 mg PO Q8H muscle spasm 09/04/24 09/04/24 08:45 History polyethylene glycol 3350 17 17 g PO DAILY PRN constipation 09/04/24 Unknown History gram/dose oral powder sennosides 8.6 mg-docusate sodium 1 tab-cap PO BID Constipation 09/04/24 Unknown History 50 mg tablet (Senna Plus) Allergy/AdvReac Type Severity Reaction Status Date / Time erythromycin base Allergy TONGUE Verified 04/08/24 14:38 PEELS Family History Sister Melanoma Father Prostate CA Surgical History (Updated 09/04/24 @ 21:[address] Qamar Smith MD) History of placement of ureteral stent History of resection of small bowel History of right salpingo-oophorectomy History of lysis of adhesions History of exploratory laparotomy 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 Social History household members: none housing: apartment Smoking Status: Former smoker alcohol intake: former year quit: 2020 substance use type: marijuana ROS Constitutional Constitutional: Reports weakness; Denies chills, fever(s) or weight gain ENT HEENT: Denies headache(s), nasal congestion or nasal discharge Cardiovascular Cardiovascular: Denies chest pain or palpitations Respiratory/Chest Respiratory/Chest: Denies cough, excessive phlegm production or shortness of breath with exertion Gastrointestinal Gastrointestinal: Denies abdominal pain, nausea or vomiting Genitourinary Genitourinary: Denies dysuria Musculoskeletal Musculoskeletal: Denies joint pain or joint swelling Integumentary Integumentary: Denies rash or wounds Neurologic Neurologic: Denies focal weakness, numbness or tingling Psychiatric Psychiatric: Denies anxiety, auditory hallucinations, depression, homicidal ideation or suicidal ideation Vital Signs Vital Signs Vital Signs: 09/04/24 15:40 09/04/24 15:41 Temperature 98.2 F Temperature Source Temporal Pulse Rate 98 Pulse Rhythm Regular Pulse Strength Normal (2+) Respiratory Rate 16 Respiratory Effort Normal Non-Labored Respiratory Depth Normal Respiratory Pattern Normal Blood Pressure 92/59 L Blood Pressure Mean 70 Blood Pressure Source Monitor Blood Pressure Position Sitting Blood Pressure Location Right Arm Pulse Ox 96 Oxygen Delivery Method Room Air Room Air Weight Weight: 40.959 kg Body Mass Index (BMI) 15.5 Physical Exam Const alert General Appearance: cooperative HEENT normocephalic Eyes PERRL and EOMs intact bilaterally Neck supple, no JVD and no carotid bruits Resp normal respiratory effort, normal air movement and clear to auscultation bilaterally Cardio regular rate and regular rhythm GI normal to inspection, nondistended, normoactive bowel sounds, non-tender and non-distended GI Narrative: Midline abdominal incision healed. Extremity normal capillary refill General Extremity: Negative for edema Skin no rashes or lesions noted General Skin Exam: no breakdown Neuro Neuro Narrative: Right lower extremity weakness. Psych affect normal Appearance: appropriate Assessment & Plan Assessment/Plan (1) Debility: (2) Colon cancer: (3) Seizure disorder: (4) Osteoporosis: (5) Anxiety: (6) GERD (gastroesophageal reflux disease): (7) Hypokalemia: (8) Depression: PLAN: Plan 64 year old female with recurrent cecal colon cancer underwent exploratory laparotomy, extensive adhesiolysis, retroperitoneal mass resection with en block resection of right fallopian tube, right oophorectomy, small bowel resection with revision of iliac colic anastomosis, ureteral stent placement, and femoral nerve ligation 08/28/2024, postoperative course complicated by anemia, pain, nausea/vomiting, admitted to TCU with debility, here for rehabilitation, strengthening, prior to discharge home alone. Debility - PT/OT. Pain - Tylenol 1000mg q8, Lidoderm 2 patches td daily, Dilaudid 4mg q4 prn pain (6-10), consider consulting pain management. Bowel - Miralax 17gm daily prn, Senna/colace 1 tablet bid. Adult immunization - Administer pneumonia vaccine, covid vaccine, flu vaccine as appropriate. DVT prophylaxis - Lovenox 30mg sc daily. Osteoporosis - Alendronate 70mg qweek. Seizure disorder - Depakote ER 500mg bid. Neuropathic pain - Gabapentin 100mg qhs. Muscle spasm - Robaxin 750mg q8. Nausea - Zofran odt 4mg q8 prn. The following psychotropic medication was present on admission: Buspar 7.5mg daily. Psychotropic medication therapy is indicated for a diagnosis of: Anxiety. Based on my clinical evaluation, continuation of the medication is necessary at this time. Gradual dose reduction plan (select one): ____ GDR will be attempted. Will monitor patient symptoms and behaviors in response to GDR. __x__ GRD contraindicated. 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 The following psychotropic medication was present on admission: Sertraline 50mg daily. Psychotropic medication therapy is indicated for a diagnosis of: Depression. Based on my clinical evaluation, continuation of the medication is necessary at this time. Gradual dose reduction plan (select one): ____ GDR will be attempted. Will monitor patient symptoms and behaviors in response to GDR. __x__ GRD contraindicated. 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
[2024-09-04] MEDS: Methocarbamol 750 MG Tablet PO (21:40)
[2024-09-04] MEDS: Gabapentin 100 MG Capsule PO (21:40)
[2024-09-05] MEDS: HYDROmorphone 2 MG TABLET 4 MG PO ×5 (03:07→21:32)
[2024-09-05 05:50] LABS: Absolute Lymphocyte Count 1.63 X10^3/uL (0.83-4.51); Absolute Neutrophil Count 5.9 X10^3/uL (2.0-7.7); Basophil# 0.11 X10^3/uL; Basophil% 1.2 % (0-1); Eosinophils% 7.5 % (0-5); Hematocrit 33.9 % (37-47); Hemoglobin 11.3 g/dL (12.0-15.0); Lymphocyte # 1.63 X10^3/ul (0.83-4.51); Lymphocyte % 17.4 % (19-41); Mean Corp Hgb Conc 33.3 g/dL (32-36); Mean Corpuscular Hgb 31.9 pg (27.0-32.0); Mean Corpuscular Volume 95.8 fL (81-99); Mean Platelet Vol. 9.2 fl (6.2-12.0); Monocyte# 0.96 X10^3/uL; Monocyte% 10.3 % (0-10); NRBC Flagged by Analyzer 0 % (0-5); Neutrophil # 5.86 X10^3/uL (2.7-7.7); Neutrophil % 62.5 % (47-70); Platelet Count 363 K/mm3 (150-450); RBC Distribution Width CV 14.6 % (11.6-14.6); RBC Distribution Width SD 51.2 fl (35.1-43.9); Red Blood Count 3.54 M/mm3 (4.2-5.4); White Blood Count 9.4 K/mm3 (4.4-11.0)
[2024-09-05] MEDS: Methocarbamol 750 MG Tablet PO ×3 (05:50→21:34)
[2024-09-05] MEDS: Acetaminophen 500 MG Tablet 1000 MG PO ×3 (05:50→21:34)
[2024-09-05 06:17] LABS: Anion Gap 13 (5-15); BUN 23 mg/dL (4-19); BUN/Creat Ratio 44.4 RATIO (10-20); Calcium,Total 9.1 mg/dL (7.6-11.0); Carbon Dioxide 24.8 mmol/L (21.0-32.0); Chloride 102 mmol/L (98-108); Creatinine, Serum 0.52 mg/dL (0.70-1.20); EST Glomerular Filtration Rate 103 (>60); Estimated Creatinine Clearance 45.33 ml/min (50-250); Glucose 88 mg/dL (70-99); Potassium 4.1 mmol/L (3.3-5.1); Sodium Level 139 mmol/L (133-145)
[2024-09-05 10:09] VITALS: BP 95/69; PULSE 103; RESP 17; TEMP 36.2; O2SAT 97
[2024-09-05] MEDS: busPIRone 15 MG TABLET 7.5 MG PO (10:12)
[2024-09-05] MEDS: Lidocaine 5% Patch 2 PATCH TOPICAL (10:13)
[2024-09-05] MEDS: Enoxaparin 30 MG/0.3 ML Syringe SC (10:13)
[2024-09-05] MEDS: Sertraline 50 MG Tablet PO (10:14)
[2024-09-05] MEDS: Tuberculin,Purif.prot.deriv. 50 TU/ML Vial 0.1 ML ID (12:50)
--- NOTE | 2024-09-05 15:49 | CASEMGMT ---
Social Work SW met with patient to complete initial assessment. Introduced self and role. verified/updated contacts. Patient confirmed code status as full code. SW educated to Medicare benefit in detail and confirmed pt does not have a secondary insurance. See SW assessment for details on SDOH needs. Pt agreed to completing Medicaid application. SW sent referral to [facility]. Care Coordination program referral completed via [facility] website. Pt's goal is to return home prior to day 21 (09/24). SW will continue to follow for DC planning and support. Estee Toney MSW TALENT ACQUISITION CONSULTANT
--- NOTE | 2024-09-05 16:55 | PCM.PN.DRR ---
Documented by User: Keri Michel 09/05/24 17:22 TCU RX Drug Regimen Review Subjective/Objective Subjective/Objective Subjective: 64 YOF admitted to TCU 09/04/24 s/p hospitalization at an outside facility for exploratory laparotomy resulting in several procedures on 08/28. Patient's hospitalization was also complicated by the need for GT placement with decreased bowel function and appetite. Patient admitted to TCU for strengthening and rehabilitation prior to discharge home where she resides alone. Objective: Allergies erythromycin base Allergy (Verified 04/08/24 14:38) TONGUE PEELS Current Medications Generic Name Dose Route Start Last Admin Trade Name Freq PRN Reason Stop Dose Admin Acetaminophen 1,000 mg 09/04/24 22:00 09/05/24 14:22 Acetaminophen 500 Mg Tablet PO 1,000 mg Q8 ART Administration Alendronate Sodium 70 mg 09/07/24 10:00 Alendronate Sodium 70 Mg Tablet PO Sa ART Buspirone HCl 7.5 mg 09/05/24 10:00 09/05/24 10:12 Buspirone 15 Mg Tablet PO 7.5 mg DAILY ART Administration Enoxaparin Sodium 30 mg 09/05/24 10:00 09/05/24 10:13 Enoxaparin 30 Mg/0.3 Ml Syringe SC 10/02/24 10:01 30 mg DAILY ART Administration Gabapentin 100 mg 09/04/24 22:00 09/04/24 21:40 Gabapentin 100 Mg Capsule PO 10/04/24 22:01 100 mg QHS ART Administration Hydromorphone HCl 4 mg 09/04/24 20:23 09/05/24 12:50 Hydromorphone 2 Mg Tablet PO 09/11/24 16:05 2 mg Q4H PRN Administration PAIN 6-10 Lidocaine 2 patch 09/05/24 10:00 09/05/24 10:13 Lidocaine 5% Patch TOPICAL 2 patch DAILY ART Administration Methocarbamol 750 mg 09/04/24 22:00 09/05/24 14:22 Methocarbamol 750 Mg Tablet PO 750 mg Q8 ART Administration Ondansetron HCl 4 mg 09/04/24 16:09 Ondansetron Odt 4 Mg Tablet PO Q8H PRN PRN Nausea Polyethylene Glycol 17 gm 09/04/24 16:34 Polyethylene Glycol 3350 17 Gm Packet PO DAILY PRN constipation Senna/Docusate Sodium 1 tablet 09/04/24 22:00 09/05/24 10:14 Senna/Docusate Sodium 1 Tablet PO Not Given BID ART Sertraline HCl 50 mg 09/05/24 10:00 09/05/24 10:14 Sertraline 50 Mg Tablet PO 50 mg DAILY ART Administration Tuberculin PPD 0.1 ml 09/12/24 10:00 Tuberculin,Purif.Prot.Deriv. 50 Tu/Ml Vial ID 09/12/24 10:01 X1 ONE Problem List Depression (Acute) GERD (gastroesophageal reflux disease) (Acute) Anxiety (Acute) Osteoporosis (Acute) Seizure disorder (Acute) Colon cancer (Acute) Debility (Acute) Vital Signs Temp Pulse Resp BP Pulse Ox O2 Del Method 97.2 F L 103 H 17 95/69 97 Room Air 09/05/24 10:09 09/05/24 10:09 09/05/24 10:09 09/05/24 10:09 09/05/24 10:09 09/05/24 10:09 Oxygen Delivery Method Room Air Weight: 40 kg Body Mass Index (BMI) 15.5 Sodium 139 mmol/L (133-145) 09/05/24 05:10 Potassium 4.1 mmol/L (3.3-5.1) 09/05/24 05:10 Chloride 102 mmol/L (98-108) 09/05/24 05:10 Carbon Dioxide 24.8 mmol/L (21.0-32.0) 09/05/24 05:10 Anion Gap 13 (5-15) 09/05/24 05:10 BUN 23 mg/dL (4-19) H 09/05/24 05:10 Creatinine 0.52 mg/dL (0.70-1.20) L 09/05/24 05:10 Est GFR (MDRD) Non-Af 103 (>60) 09/05/24 05:10 BUN/Creatinine Ratio 44.4 RATIO (10-20) H 09/05/24 05:10 Glucose 88 mg/dL (70-99) 09/05/24 05:10 Assessment/Plan: 1. Pain: Tylenol 1000mg PO Q8h, Lidocaine patch 2 patches topically daily, Hydromorphone 4mg PO Q4h PRN. Please continue to monitor for constipation/oversedation/respiratory depression with narcotic usage, local site irritation with lidocaine patches, S/S increased/decreased pain. - The patient has used 3 doses of PRN Dilaudid since admission for pain rated 6/10. -It is noted that pain management may be consulted during stay. 2. Muscle Spasm: Robaxin 750mg PO Q8h. Please continue to monitor for drowsiness, dizziness, anticholinergic effect (Beer's list). 3. Neuropathic pain: Gabapentin 100mg PO QHS. Please continue to monitor for oversedation, falls (Beer's list), renal function. 4. Osteoporosis: Fosamax 70mg PO weekly. Please ensure patient takes on an empty stomach first thing in the morning and remains upright for at least 60min post-med administration. Please monitor for abdominal pain, constipation, calcium, and phosphate levels as clinically indicated. 5. Nausea: Zofran 4mg PO Q8h PRN. Please continue to monitor for headache, PRN medication usage, resolution of symptoms. 6. DVT Prophylaxis: Lovenox 30mg SC Daily. Please continue to monitor for S/S bleeding, platelets (last 363 on 09/05), CrCl (45mL/min on 09/05). Patient's CrCl is >30mL/min, please consider increasing Lovenox dose to 40mg SC Daily based on renal function if clinically indicated, thank you. 7. Bowel: Senna/Docusate 1 tab PO BID, Miralax 17g PO Daily PRN. Please continue to monitor for increased/decreased constipation/diarrhea. If diarrhea develops, please discontinue scheduled stool softeners, thank you. - The patient has not had a documented BM since admission (<24hrs ago). If the patient does not have a BM in the next 48-72hrs, please consider giving PRN medications to help facilitate a BM. Assessment/Plan for indications treated with psychotropic medications: 1. Depression: Zoloft 50mg PO Daily. Monitor for diarrhea, nausea, headache, anxiety or drowsiness, suicidal thoughts or behaviors (Boxed Warning), symptoms of bleeding, symptoms of serotonin syndrome (including agitation, confusion, hyperreflexia, rigidity/myoclonus, tremor, tachycardia, tachypnea), sodium levels (last = 139 on 09/05). Monitor for efficacy including resident symptoms, behaviors and indications of distress. Monitor for tolerability including mental status, cognition, excessive sleepiness, withdrawal or decreased participation in activities and decline in physical functioning. Maximize use of nonpharmacologic/behavioral interventions to facilitate dose reduction or discontinuation as appropriate. Please evaluate the appropriateness of GDR unless contraindicated. If appropriate, GDR should be attempted in 2 separate quarters within the first year of use or admission to TCU. If GDR attempted, monitor resident symptoms/behaviors. 2. Anxiety: Buspar 7.5mg PO Daily. Monitor for sedation, mental status and cognition. Monitor for falls (risk factor for falls) and implement fall prevention strategies. Monitor for efficacy including resident symptoms, behaviors and indications of distress. Monitor for tolerability including mental status, cognition, excessive sleepiness, withdrawal or decreased participation in activities and decline in physical functioning. Maximize use of nonpharmacologic/behavioral interventions to facilitate dose reduction or discontinuation as appropriate. Please evaluate the appropriateness of GDR unless contraindicated. If appropriate, GDR should be attempted in 2 separate quarters within the first year of use or admission to TCU. If GDR attempted, monitor resident symptoms/behaviors. Medical chart and medication regimen reviewed. The following medication irregularities or issues were identified: 1. DVT Prophylaxis: Lovenox 30mg SC Daily. Patient's CrCl is >30mL/min (45mL/min on 09/05), please consider increasing Lovenox dose to 40mg SC Daily based on renal function if clinically indicated, thank you. Date Date of Note: 09/05/24 Documented by User: Dr. Qamar Smith MD 09/05/24 17:24 TCU RX Drug Regimen Review Provider Comments Provider responsibility Provider Comments to Recommendations by Pharmacy Agree
[2024-09-05 21:30] VITALS: PULSE 96; RESP 16; O2SAT 96
[2024-09-05] MEDS: Gabapentin 100 MG Capsule PO (21:32)
[2024-09-06] MEDS: HYDROmorphone 2 MG TABLET 4 MG PO ×5 (04:15→22:35)
[2024-09-06] MEDS: Methocarbamol 750 MG Tablet PO ×3 (05:26→21:28)
[2024-09-06] MEDS: Acetaminophen 500 MG Tablet 1000 MG PO ×3 (05:26→21:28)
[2024-09-06 10:00] VITALS: BP 94/64; PULSE 100; RESP 16; TEMP 36.7; O2SAT 92
[2024-09-06] MEDS: busPIRone 15 MG TABLET 7.5 MG PO (10:04)
[2024-09-06] MEDS: Lidocaine 5% Patch 2 PATCH TOPICAL (10:05)
[2024-09-06] MEDS: Sertraline 50 MG Tablet PO (10:06)
--- NOTE | 2024-09-06 12:15 | NURSING ---
Jackhammer Splitter Operator Note; Activity Asset: Vasquez Crowder is independent in her choice of daily activities. She stated she has everything she need, he phone, word puzzles and her book. Staff will remind her of weekly activities and respect her right to say no.
[2024-09-06] MEDS: Enoxaparin 40 MG/0.4 ML Syringe SC (12:16)
--- NOTE | 2024-09-06 12:24 | NS ---
MST score = 5
[2024-09-06] MEDS: Gabapentin 100 MG Capsule PO (21:27)
[2024-09-07] MEDS: HYDROmorphone 2 MG TABLET 4 MG PO ×5 (02:37→21:15)
[2024-09-07] MEDS: Methocarbamol 750 MG Tablet PO ×3 (06:42→21:16)
[2024-09-07] MEDS: Acetaminophen 500 MG Tablet 1000 MG PO ×3 (06:42→21:17)
[2024-09-07 06:46] VITALS: PULSE 94; RESP 18; O2SAT 95
[2024-09-07] MEDS: Sertraline 50 MG Tablet PO (08:57)
[2024-09-07] MEDS: Alendronate Sodium 70 MG Tablet PO (08:57)
[2024-09-07] MEDS: busPIRone 15 MG TABLET 7.5 MG PO (08:58)
[2024-09-07] MEDS: Lidocaine 5% Patch 2 PATCH TOPICAL (08:58)
[2024-09-07] MEDS: Enoxaparin 40 MG/0.4 ML Syringe SC (08:58)
[2024-09-07 09:48] VITALS: BP 99/54; PULSE 83; RESP 17; TEMP 36.6; O2SAT 98
[2024-09-07] MEDS: Gabapentin 100 MG Capsule PO (21:16)
[2024-09-08] MEDS: HYDROmorphone 2 MG TABLET 4 MG PO ×2 (05:21→11:06)
[2024-09-08] MEDS: Methocarbamol 750 MG Tablet PO ×3 (05:22→20:21)
[2024-09-08] MEDS: Acetaminophen 500 MG Tablet 1000 MG PO ×3 (05:22→20:19)
[2024-09-08] MEDS: Sertraline 50 MG Tablet PO (08:36)
[2024-09-08] MEDS: busPIRone 15 MG TABLET 7.5 MG PO (08:36)
[2024-09-08] MEDS: Enoxaparin 40 MG/0.4 ML Syringe SC (08:37)
[2024-09-08] MEDS: Lidocaine 5% Patch 2 PATCH TOPICAL (08:37)
[2024-09-08 09:22] VITALS: BP 109/58; PULSE 77; RESP 16; TEMP 36.6; O2SAT 97
[2024-09-08] MEDS: HYDROmorphone 2 MG TABLET PO (20:20)
[2024-09-08] MEDS: Gabapentin 100 MG Capsule PO (20:21)
[2024-09-08] MEDS: Hydrocortisone 2.5% Crm 1 APPLIC TOPICAL (20:23)
[2024-09-09] MEDS: HYDROmorphone 2 MG TABLET PO ×5 (01:38→21:34)
[2024-09-09] MEDS: Methocarbamol 750 MG Tablet PO ×3 (06:53→21:37)
[2024-09-09] MEDS: Acetaminophen 500 MG Tablet 1000 MG PO ×3 (06:54→21:37)
--- NOTE | 2024-09-09 08:54 | NURSING ---
Offered covid vaccine, VIS provided. Resident declines.
[2024-09-09] MEDS: busPIRone 15 MG TABLET 7.5 MG PO (09:11)
[2024-09-09] MEDS: Lidocaine 5% Patch 2 PATCH TOPICAL (09:11)
[2024-09-09] MEDS: Enoxaparin 40 MG/0.4 ML Syringe SC (09:11)
[2024-09-09] MEDS: Sertraline 50 MG Tablet PO (09:11)
[2024-09-09] MEDS: Hydrocortisone 2.5% Crm 1 APPLIC TOPICAL ×2 (09:16→21:39)
[2024-09-09 17:13] VITALS: BP 106/58; PULSE 72; RESP 17; TEMP 36.4; O2SAT 97
[2024-09-09] MEDS: MethylPREDNISolone DosePak 4 MG BOX PO ×2 (17:27→21:36)
[2024-09-09] MEDS: Gabapentin 100 MG Capsule PO (21:34)
[2024-09-10] MEDS: HYDROmorphone 2 MG TABLET PO ×4 (05:06→20:35)
[2024-09-10] MEDS: hydrOXYzine PAM 25 MG Capsule 50 MG PO ×3 (05:06→21:34)
[2024-09-10] MEDS: Acetaminophen 500 MG Tablet 1000 MG PO ×3 (05:07→21:34)
[2024-09-10] MEDS: Methocarbamol 750 MG Tablet PO ×3 (05:07→21:33)
--- NOTE | 2024-09-10 05:11 | NURSING ---
Patient educated on seizure precautions, declines seizure pads, states I don't really get seizures, I just get a feeling of hemalatha vu sometimes and a little shaky, I don't need the pads. A&Ox3. Able to voice needs. Denies requests. Call light in reach.
[2024-09-10 09:25] VITALS: BP 102/65; PULSE 78; RESP 16; TEMP 36.6; O2SAT 97
[2024-09-10] MEDS: busPIRone 15 MG TABLET 7.5 MG PO (09:28)
[2024-09-10] MEDS: MethylPREDNISolone DosePak 4 MG BOX PO ×4 (09:28→21:34)
[2024-09-10] MEDS: Lidocaine 5% Patch 2 PATCH TOPICAL (09:29)
[2024-09-10] MEDS: Enoxaparin 40 MG/0.4 ML Syringe SC (09:30)
[2024-09-10] MEDS: Sertraline 50 MG Tablet PO (09:30)
[2024-09-10] MEDS: Hydrocortisone 2.5% Crm 1 APPLIC TOPICAL ×2 (09:34→21:37)
[2024-09-10 13:44] VITALS: BMI 15.1
--- NOTE | 2024-09-10 14:49 | CASEMGMT ---
BIMS () and PHQ9 (5) interviews completed on this date for MDS assessment. Pt able to verbalize feelings of frustration regarding diagnosis and that the cancer diagnosis is the root cause of pts feelings of depression. Pt is able to identify a strong support system with family and friends and that this is helpful for pt to cope with life changes related to diagnosis. SW encouraged validated feelings and provided support INDY Abraham
[2024-09-10 21:30] VITALS: PULSE 82; RESP 16; O2SAT 99
[2024-09-10] MEDS: Gabapentin 100 MG Capsule PO (21:34)
[2024-09-11] MEDS: HYDROmorphone 2 MG TABLET PO ×4 (02:15→21:24)
[2024-09-11] MEDS: Acetaminophen 500 MG Tablet 1000 MG PO ×3 (05:32→21:24)
[2024-09-11] MEDS: Methocarbamol 750 MG Tablet PO ×3 (05:32→21:24)
--- NOTE | 2024-09-11 08:47 | NURSING ---
Vascular Nurse Note; mds for 09/11/2024 complete
[2024-09-11 08:48] VITALS: BP 99/57; PULSE 67; RESP 18; TEMP 36.2; O2SAT 98
[2024-09-11] MEDS: MethylPREDNISolone DosePak 4 MG BOX PO ×4 (08:50→21:23)
[2024-09-11] MEDS: Enoxaparin 40 MG/0.4 ML Syringe SC (08:50)
[2024-09-11] MEDS: Hydrocortisone 2.5% Crm 1 APPLIC TOPICAL ×2 (08:50→21:25)
[2024-09-11] MEDS: Sertraline 50 MG Tablet PO (08:51)
[2024-09-11] MEDS: busPIRone 15 MG TABLET 7.5 MG PO (08:52)
[2024-09-11] MEDS: Lidocaine 5% Patch 2 PATCH TOPICAL (08:52)
--- NOTE | 2024-09-11 13:39 | CASEMGMT ---
Plan of care meeting held today with pt in attendance and pt's sister on speaker phone. Therapy/Nutrition/Activities provided updates on pt progress. Pt has made good progress with therapy. DOM educated pt on Medicare benefit. Pt does not have a secondary insurance and copay days start on 09/24. SW provided written information on insurance process. Pt lives at home alone and plans to return home alone at time of discharge. Resources has been provided for financial concerns. Pt is requesting to discharge on Monday. PT is recommending home health PT and pt is agreeable. DOM will assist with arranging discharge. INDY Abraham
[2024-09-11] MEDS: Gabapentin 100 MG Capsule PO (21:29)
[2024-09-12] MEDS: Methocarbamol 750 MG Tablet PO ×3 (05:48→21:10)
[2024-09-12] MEDS: Acetaminophen 500 MG Tablet 1000 MG PO ×3 (05:48→21:10)
[2024-09-12 06:09] LABS: Absolute Neutrophil Count 9.6 X10^3/uL (2.0-7.7); Basophil# 0.14 X10^3/uL; Eosinophil# 0.46 X10^3/uL; Eosinophils% 3.4 % (0-5); Hematocrit 38.1 % (37-47); Hemoglobin 12.8 g/dL (12.0-15.0); Mean Corp Hgb Conc 33.6 g/dL (32-36); Mean Corpuscular Hgb 31.6 pg (27.0-32.0); Mean Corpuscular Volume 94.1 fL (81-99); Mean Platelet Vol. 9.4 fl (6.2-12.0); Monocyte# 0.97 X10^3/uL; Monocyte% 7.2 % (0-10); NRBC Flagged by Analyzer 0 % (0-5); Neutrophil # 9.61 X10^3/uL (2.7-7.7); Neutrophil % 71.1 % (47-70); Platelet Count 530 K/mm3 (150-450); RBC Distribution Width CV 13.9 % (11.6-14.6); RBC Distribution Width SD 47.8 fl (35.1-43.9); Red Blood Count 4.05 M/mm3 (4.2-5.4); White Blood Count 13.5 K/mm3 (4.4-11.0)
[2024-09-12 06:26] LABS: Anion Gap 12 (5-15); BUN 30 mg/dL (4-19); BUN/Creat Ratio 45.8 RATIO (10-20); Calcium,Total 8.9 mg/dL (7.6-11.0); Carbon Dioxide 27.6 mmol/L (21.0-32.0); Chloride 99 mmol/L (98-108); Creatinine, Serum 0.66 mg/dL (0.70-1.20); EST Glomerular Filtration Rate 97 (>60); Estimated Creatinine Clearance 44.28 ml/min (50-250); Glucose 127 mg/dL (70-99); Potassium 3.9 mmol/L (3.3-5.1); Sodium Level 139 mmol/L (133-145)
[2024-09-12 08:35] VITALS: BP 104/67; PULSE 80; RESP 17; TEMP 36.6; O2SAT 97
[2024-09-12] MEDS: MethylPREDNISolone DosePak 4 MG BOX PO ×3 (08:38→21:11)
[2024-09-12] MEDS: busPIRone 15 MG TABLET 7.5 MG PO (08:39)
[2024-09-12] MEDS: Lidocaine 5% Patch 2 PATCH TOPICAL (08:40)
[2024-09-12] MEDS: Enoxaparin 40 MG/0.4 ML Syringe SC (08:40)
[2024-09-12] MEDS: Sertraline 50 MG Tablet PO (08:41)
[2024-09-12] MEDS: Ondansetron ODT 4 MG Tablet PO (11:41)
[2024-09-12] MEDS: Tuberculin,Purif.prot.deriv. 50 TU/ML Vial 0.1 ML ID (11:41)
[2024-09-12] MEDS: HYDROmorphone 2 MG TABLET PO ×2 (11:48→21:10)
[2024-09-12] MEDS: Hydrocortisone 2.5% Crm 1 APPLIC TOPICAL ×2 (11:49→21:12)
--- NOTE | 2024-09-12 16:56 | CASEMGMT ---
Social Work Pt is requesting to discharge on Friday 09/15. Pt plans to return home alone and would benefit from home health care PT. Pt is agreeable to [facility], A list of home health providers including quality and resource use data and consistent with the patient?s preferred geographic region, medical needs, and insurance network were provided from the [employer] Guide. Pt preferred provider is [facility]. Referral sent to [facility]. Pt states that a friend can provide transportation home and friends are also setting up a [employer] for pt's return home. Pt was provided with community resources to assist with financial concerns. DOM encouraged pt to reach out to community agencies as needed to assist with things like utility payments. While at the hospital, pt applied for Medicaid. DOM encouraged pt to follow up with [facility] to get all information submitted to [facility] timely. DOM notified Avril at [facility] of pt's discharge home. Pt inquiring about getting a rollator at discharge. AFSHIN left with Raphael at [facility] to obtain information regarding a rollator. DOM will continue to follow to complete dc. Discharge Date: 09/15 Discharge Disposition: Home alone, [facility] PT, pending acceptance INDY Abraham
--- NOTE | 2024-09-12 20:29 | PCM.DC.SUM ---
Providers Date of Admission: 09/04/24 Primary Care Physician: VEENA Kothari, COREMAKER BENCHMathewC Reason For Visit: ABD PAIN; STAGE 2 CEALCAL ADENOCARCINOMA Diagnosis Discharge Diagnosis (1) Debility: Status: Acute Code(s): R53.81 - Other malaise (2) Colon cancer: Status: Acute Code(s): C18.9 - Malignant neoplasm of colon, unspecified (3) Seizure disorder: Status: Acute Code(s): G40.909 - Epilepsy, unspecified, not intractable, without status epilepticus (4) Osteoporosis: Status: Acute Code(s): M81.0 - Age-related osteoporosis without current pathological fracture (5) Anxiety: Status: Acute Code(s): F41.9 - Anxiety disorder, unspecified (6) GERD (gastroesophageal reflux disease): Status: Acute Code(s): K21.9 - Gastro-esophageal reflux disease without esophagitis (7) Hypokalemia: Status: Resolved Code(s): E87.6 - Hypokalemia (8) Depression: Status: Acute Code(s): F32.9 - Major depressive disorder, single episode, unspecified Plan 64 year old female with recurrent cecal colon cancer underwent exploratory laparotomy, extensive adhesiolysis, retroperitoneal mass resection with en block resection of right fallopian tube, right oophorectomy, small bowel resection with revision of iliac colic anastomosis, ureteral stent placement, and femoral nerve ligation 08/28/2024, postoperative course complicated by anemia, pain, nausea/vomiting, admitted to TCU with debility, here for rehabilitation, strengthening, prior to discharge home alone. Debility - PT/OT. Pain - Tylenol 1000mg q8, Lidoderm 2 patches td daily, Dilaudid 4mg q4 prn pain (6-10), consider consulting pain management. Bowel - Miralax 17gm daily prn, Senna/colace 1 tablet bid. Adult immunization - Administer pneumonia vaccine, covid vaccine, flu vaccine as appropriate. DVT prophylaxis - Lovenox 30mg sc daily. Osteoporosis - Alendronate 70mg qweek. Seizure disorder - Depakote ER 500mg bid. Neuropathic pain - Gabapentin 100mg qhs. Muscle spasm - Robaxin 750mg q8. Nausea - Zofran odt 4mg q8 prn. The following psychotropic medication was present on admission: Buspar 7.5mg daily. Psychotropic medication therapy is indicated for a diagnosis of: Anxiety. Based on my clinical evaluation, continuation of the medication is necessary at this time. Gradual dose reduction plan (select one): ____ GDR will be attempted. Will monitor patient symptoms and behaviors in response to GDR. __x__ GRD contraindicated. 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 The following psychotropic medication was present on admission: Sertraline 50mg daily. Psychotropic medication therapy is indicated for a diagnosis of: Depression. Based on my clinical evaluation, continuation of the medication is necessary at this time. Gradual dose reduction plan (select one): ____ GDR will be attempted. Will monitor patient symptoms and behaviors in response to GDR. __x__ GRD contraindicated. Reason contraindicated: stable chronic half-way use. Medications at Discharge Home Medications alendronate 70 mg tablet 70 mg PO QWEEK [facility] 10/18/23 buspirone 7.5 mg tablet 7.5 mg PO DAILY Mood 10/18/23 sertraline 50 mg tablet 50 mg PO DAILY Mood 10/18/23 acetaminophen 500 mg tablet 1,000 mg (2 x 500 mg) PO Q8 #0 tabs 09/12/24 gabapentin 100 mg capsule 100 mg PO QHS 30 days #30 caps 09/12/24 hydromorphone 2 mg tablet 2 - 4 mg (1 - 2 x 2 mg) PO Q4H PRN PRN PAIN 6-10 7 days #42 tabs 09/12/24 hydroxyzine pamoate 25 mg capsule 50 mg (2 x 25 mg) PO TID PRN PRN Itching 30 days #90 caps 09/12/24 lidocaine 5 % topical patch 2 patch topical DAILY 30 days #60 ea 09/12/24 methocarbamol 750 mg tablet 750 mg PO Q8 30 days #90 tabs 09/12/24 ondansetron 4 mg disintegrating tablet 4 mg PO Q8H PRN PRN Nausea 30 days #90 tabs 09/12/24 Hospital Course Operations - (See below.) Procedures None Summary of Care Provided Minutes Spent on Discharge: 35 Hospital Course: 64 year old female with recurrent cecal colon cancer underwent exploratory laparotomy, extensive adhesiolysis, retroperitoneal mass resection with en block resection of right fallopian tube, right oophorectomy, small bowel resection with revision of iliac colic anastomosis, ureteral stent placement, and femoral nerve ligation 08/28/2024, postoperative course complicated by anemia, pain, nausea/vomiting, admitted to TCU with debility, here for rehabilitation, strengthening, prior to discharge home alone. Discharge home alone 09/15/2024, [facility] PT, pending acceptance. Physical Exam Const alert General Appearance: cooperative HEENT normocephalic Eyes PERRL and EOMs intact bilaterally Neck supple, no JVD and no carotid bruits Resp normal respiratory effort, normal air movement and clear to auscultation bilaterally Cardio regular rate and regular rhythm GI normal to inspection, nondistended, normoactive bowel sounds, non-tender and non-distended Extremity normal capillary refill General Extremity: Negative for edema Skin no rashes or lesions noted General Skin Exam: no breakdown Psych affect normal Appearance: appropriate Medical Records Data Medical Nutrition Assessment Dietitian: Malnutrition Criteria Met Start: 09/05/24 16:25 Freq: Status: Active Protocol: Document 09/11/24 14:51 SLA (Rec: 09/11/24 14:51 SLA [id number]) Nutrition Malnutrition Evidence of Yes Malnutrition Exists Malnutrition ( Chronic moderate): Malnutrition ( Moderate pro/dillan unspecified) Evidenced By Suboptimal Energy Intake (Moderate),Weight Loss ( Moderate),Physical Changes (Mild) Clinical Problem Chronic Disease or Condition Related Malnutrition Etiology related to chronic condition, cecal adenocarcinoma w/ inability gain wt to UBW: 50 kg Signs/Symptoms mild wasting of temples, clavicles, thigh, calf, orbital and rib regions, and <75% energy intake x >1 month, 20% weight loss x 1 year. Status Active Problem Recommendation Dietitian Change diet to Regular per diet order to advance 2 wks Recommendations/ post surgery Changes Continue EPHP tid w/ meals Add magic cup w/ lunch and dinner for increased nutrition if consumed Add fortified foods tid w/ meals as able for increased nutrition if consumed. Weight / BMI Weight Weight: 40.007 kg Body Mass Index (BMI) 15.1 ABG / Lab / Microbiology Data 09/12/24 05:35 09/12/24 05:35 Laboratory: Laboratory Results - last 24 hr 09/12/24 05:35: WBC 13.5 H, RBC 4.05 L, Hgb 12.8, Hct 38.1, MCV 94.1, MCH 31.6, MCHC 33.6, RDW Std Deviation 47.8 H, RDW Coeff of Yury 13.9, Plt Count 530 H, MPV 9.4, Immature Gran % (Auto) 0.300, Neut % (Auto) 71.1 H, Lymph % (Auto) 17.0 L, Bertie % (Auto) 7.2, Eos % (Auto) 3.4, Baso % (Auto) 1.0, Absolute Neuts (auto) 9.6 H, Absolute Lymphs (auto) 2.30, Nucleated RBC % 0, Sodium 139, Potassium 3.9, Chloride 99, Carbon Dioxide 27.6, Anion Gap 12, BUN 30 H, Creatinine 0.66 L, Estim Creat Clear Calc 44.28 L, Est GFR (MDRD) Non-Af 97, BUN/Creatinine Ratio 45.8 H, Glucose 127 H, Calcium 8.9 D/C Instructions Discharge Diet: No restrictions Discharge Activity: Return to Normal Activity, May Shower and Use Walker Weight Bearing Status: Weight bearing as tolerated Call your doctor if you observe: Fever of 101 or Higher, Inability to urinate, Inability to have a bowel movement, Shortness of breath, Dizziness, Fainting spells, Swelling in the ankles, Chest pain and Uncontrolled pain DC O2, CPAP, BIPAP Needs Home O2 Discharge instructions: No Additional Instructions: Discharge home alone 09/15/2024, [facility] PT, pending acceptance. Please Follow Up With: Pharmacy with [facility] pharmacist Meaningful Use Info Meaningful Use Meaningful Use Diagnoses (Choose all that apply): None applicable Ischemic Stroke Statin Dosing Therapy Reference: STATIN DOSE THERAPY REFERENCE: * Patients > 75 years receive moderate or high dose statin therapy. * Patients 75 years or YOUNGER should receive HIGH intensity statin dose unless contraindicated. You will be required to document reason for non-treatment if statin daily dose does not meet guidelines. HIGH DOSE STATIN THERAPY DAILY Atorvastatin > than or = to 40 mg Rosuvastatin > than or = to 20 mg Amlodipine + Atorvastatin > than or = to 2.5/40 mg Ezetimibe + Simvastatin 10/80 mg Simvastatin 80mg Discharge Plan Admission Admit Date/Time: 09/04/24 15:29 Primary Reason for Your Visit: Debility. Attending Provider: Qamar Smith Chi Primary Care Provider: Aubrey Lopez [facility] Instructions Additional Instructions / Restrictions: Discharge home alone 09/15/2024, [facility] PT, pending acceptance. Discharge Orders/Prescriptions Prescriptions: New acetaminophen 500 mg Tablet 1,000 mg PO Q8 Qty: 0 0RF hydromorphone 2 mg Tablet 2 - 4 mg PO Q4H PRN PRN (Reason: PAIN 6-10) 7 Days Qty: 42 0RF methocarbamol 750 mg Tablet 750 mg PO Q8 30 Days Qty: 90 0RF lidocaine 5 % Adhesive Patch,Medicated 2 patch topical DAILY 30 Days Qty: 60 0RF gabapentin 100 mg Capsule 100 mg PO QHS 30 Days Qty: 30 0RF ondansetron 4 mg Tablet,Disintegrating 4 mg PO Q8H PRN PRN (Reason: Nausea) 30 Days Qty: 90 0RF hydroxyzine pamoate 25 mg Capsule 50 mg PO TID PRN PRN (Reason: Itching) 30 Days Qty: 90 0RF Continued sertraline 50 mg tablet 50 mg PO DAILY alendronate 70 mg tablet 70 mg PO QWEEK Patient Comments: Take once a week on Saturdays. buspirone 7.5 mg tablet 7.5 mg PO DAILY Discontinued clonazepam 0.25 MG tablet,disintegrating 0.25 mg PO PRN PRN (Reason: Seizures) lacosamide 100 mg Tablet 100 mg PO BID Qty: 60 1RF divalproex 500 mg tablet extended release 24 hr 500 mg PO BID calcium polycarbophil [Fiber Laxative (ca polycarbo)] 625 mg tablet 625 mg PO BID pantoprazole 40 mg tablet,delayed release (DR/EC) 40 mg PO DAILY potassium chloride 20 mEq tablet,ER particles/crystals 20 meq PO DAILY sennosides [senna] 8.6 mg tablet 8.6 mg PO BID acetaminophen 500 mg capsule 500 - 1,000 mg PO Q6H fluconazole [Diflucan] 200 mg tablet 200 mg PO X1 Qty: 2 0RF Rx Instructions: Take 1 tab with signs of yeast infection, if no results in 72 hours take the other ondansetron 4 mg tablet,disintegrating 4 mg PO Q6H PRN (Reason: nausea and vomiting) Qty: 15 0RF ondansetron 4 mg tablet,disintegrating 4 mg PO Q8H PRN PRN (Reason: Nausea) Qty: 10 0RF enoxaparin 30 mg/0.3 mL syringe 30 mg subcut Q24H lidocaine [Lidocaine Pain Relief] 4 % adhesive patch,medicated 2 patch topical DAILY Rx Instructions: may leave on for up to 12 hrs methocarbamol 500 mg tablet 750 mg PO Q8H gabapentin 100 mg capsule 100 mg PO QHS polyethylene glycol 3350 17 gram/dose powder 17 g PO DAILY PRN (Reason: constipation) sennosides-docusate sodium [Senna Plus] 8.6-50 mg tablet 1 tab-cap PO BID hydromorphone 2 mg tablet 1 - 2 mg PO Q4H PRN (Reason: pain (scale score 7-10)) sulfamethoxazole-trimethoprim [Bactrim DS] 800-160 mg tablet 1 tab PO BID Qty: 26 0RF amoxicillin-pot clavulanate 875-125 mg tablet 1 tab PO BID Qty: 26 0RF Referrals / Follow Up: Aubrey Lopez, COREMAKER BENCH-C [Primary Care Provider] - Disposition Disposition (needs filled in before D/C Order can be placed): Home Health Service
[2024-09-12] MEDS: Gabapentin 100 MG Capsule PO (21:10)
[2024-09-12 21:15] VITALS: PULSE 80
[2024-09-13] MEDS: Acetaminophen 500 MG Tablet 1000 MG PO ×2 (05:28→13:56)
[2024-09-13] MEDS: Methocarbamol 750 MG Tablet PO ×2 (05:29→13:55)
[2024-09-13 08:36] VITALS: BP 106/69; PULSE 70; RESP 16; TEMP 36.7; O2SAT 99
[2024-09-13] MEDS: MethylPREDNISolone DosePak 4 MG BOX PO (08:39)
[2024-09-13] MEDS: Enoxaparin 40 MG/0.4 ML Syringe SC (08:40)
[2024-09-13] MEDS: busPIRone 15 MG TABLET 7.5 MG PO (08:40)
[2024-09-13] MEDS: Lidocaine 5% Patch 2 PATCH TOPICAL (08:40)
[2024-09-13] MEDS: Sertraline 50 MG Tablet PO (08:41)
--- NOTE | 2024-09-13 10:27 | NURSING ---
Patient requesting IV to be placed by staff in CT. Call placed to CT with update.
[2024-09-13] MEDS: HYDROmorphone 2 MG TABLET PO ×2 (11:09→15:08)
[2024-09-13] MEDS: Triamcinolone 0.1% Ointment 15 gm tube 1 APPLIC TOPICAL (11:10)
[2024-09-13] MEDS: BACITRACIN 15 GM Tube 1 APPLIC TOPICAL (11:12)
--- NOTE | 2024-09-13 11:36 | CASEMGMT ---
Social Work [facility] PT/SW is able to accept pt with start date on Monday. Pt had inquired about a rollator. Pt's insurance purchased pt a FWW last year, per Raphael at [facility], insurance will not cover cost of Rollator and pt can pay out of pocket $77.13. DOM met with pt and informed of above. Pt states she will talk to her sister about the rollator as sister may have access to one. Pt states she will call SW if she would like to order a rollator. Pt denies any other dc needs at this time. DC Date: 09/15 DC Destination: home alone with [facility] PT/SW INDY Abraham
--- NOTE | 2024-09-17 12:32 | MDS.RN ---
Information for the MDS was obtained from review of the clinical record, interview of resident, staff, and direct observation of resident?s care.
== END 2024-09-13 16:30 | disposition short-term general hospital (02) | DRG 949 ==
PROVIDERS: Admitting Provider Family Medicine Geriatric Medicine; Visit Provider Family Medicine Geriatric Medicine
DX: Z48.3 Aftercare following surgery for neoplasm (principal); E44.1 Mild protein-calorie malnutrition; K80.21 Calculus of gallbladder without cholecystitis with obstruction; C18.0 Malignant neoplasm of cecum; Z68.1 Body mass index [BMI] 19.9 or less, adult; E87.6 Hypokalemia; K21.9 Gastro-esophageal reflux disease without esophagitis; G40.909 Epilepsy, unspecified, not intractable, without status epilepticus; F32.9 Major depressive disorder, single episode, unspecified; G62.9 Polyneuropathy, unspecified; F41.9 Anxiety disorder, unspecified; L23.9 Allergic contact dermatitis, unspecified cause; Z87.891 Personal history of nicotine dependence; Z79.83 Long term (current) use of bisphosphonates; M81.0 Age-related osteoporosis without current pathological fracture; Z79.899 Other long term (current) drug therapy; Z90.49 Acquired absence of other specified parts of digestive tract
CPT/HCPCS: 36415; 80048; 85025; 97110; 97116; 97162; 97166; 97530; 97535; 97802

== ENCOUNTER → 2024-09-13 | Outpatient (CLI) | payer MEDICARE, SELFPAY ==
--- NOTE | 2024-09-13 08:13 | CT_ITS ---
PROCEDURE: ABDOMEN/PELVIS WITH CONTRAST 09/13/2024 REASON FOR EXAM: POST SURGICAL ABD PAIN History of colon cancer status post colon and small bowel resection, ureteral stent, right salpingo-oophorectomy, appendectomy and lysis of adhesions. TECHNIQUE: ABDOMEN/PELVIS WITH CONTRAST. Coronal and Sagittal reconstruction series were provided. CONTRAST: Isovue 370 VOLUME: 74 mL One or more dose reduction techniques were used (e.g., Automated exposure control, adjustment of the mA and/or kV according to patient size, use of iterative reconstruction technique. RADIATION DOSE SUMMARY: CTDlvol: 13.28 mGy DLP: 204.34 mGycm COMPARISON: CT abdomen and pelvis with IV contrast, 12/11/2019 FINDINGS: Lung bases: The lung bases are clear. There are no pleural effusions. The heart size is normal. There is a minimal pericardial effusion. There is no calcific vascular disease of the coronary arteries evident. Liver: Normal. Gallbladder: The gallbladder is hydropic measuring 4.6 cm in short axis diameter. No gallstones are identified. There is no intra or extrahepatic biliary ductal dilatation. Spleen: Normal. Pancreas: Normal. Adrenals: Normal. Kidneys: There is a cortical scar in the upper pole of the right kidney. There is an associated calyceal diverticulum. There is a small cortical cyst in the lower pole cortex of the right kidney. There is a cortical cyst in the interpolar cortex of the left kidney. Bladder: Normal unenhanced appearance. Reproductive Organs: Status post right oophorectomy. The uterus and left ovary are unremarkable. There is no pelvic or inguinal lymphadenopathy. Bowel: There is circumferential thickening of the wall of the distal esophagus consistent with esophagitis. There is oral contrast in the distal esophagus consistent with gastroesophageal reflux. There has been interval decrease in the thickening of the wall of the cecum and decrease in the soft tissue within the surrounding fat. The terminal ileum and ileocecal valve appear unremarkable. There is residual dilatation of the small bowel and some of the loops remain abnormally dilated. Appendix: Surgically absent. Lymph nodes: There is no significant mesenteric or retroperitoneal lymphadenopathy. Vasculature: There is minimal calcific vascular disease of the abdominal aorta. The inferior vena cava and portal venous system are normal. Peritoneum / Retroperitoneum: There is free fluid in the right perihepatic space in the mesentery and in the pelvis. There is diffuse stranding of the mesenteric fat. Bones: There is a large Schmorl's node in the superior endplate of L2. There is mild multilevel degenerative disc disease of the lumbar spine. There is moderate levoscoliosis of the thoracolumbar spine. CT/Abdomen/Pelvis WITH Contrast IMPRESSION: 1. Interval decrease in the inflammatory reaction surrounding the cecum and te rminal ileum. There is no residual thickening of the cecal wall. The ileocecal valve and terminal ileum are unremarkable. Ther e is residual dilatation of the mesenteric small bowel without obstruction. 2. The gallbladder is hydropic measuring 4.6 cm in short axis diameter. This condition was not present previously. 3. There is free fluid in the abdomen not present previously. 4. Other findings as noted. Reading Location: [id number]
== END | disposition home or self-care (01) ==
PROVIDERS: Referring Provider Family Medicine Geriatric Medicine; Visit Provider Family Medicine Geriatric Medicine
DX: R10.9 Unspecified abdominal pain (principal); G89.18 Other acute postprocedural pain
CPT/HCPCS: 74177; Q9967

== ENCOUNTER 2024-10-18 08:30 | Outpatient (RCR) | payer MEDICARE, SELFPAY ==
--- NOTE | 2024-09-23 18:00 | HP.PTEVAL ---
Patient's Visit Information Visit Information Visit Information: MICK KOCH is a 64 year old F referred to Physical Therapy by VEENA Kothari, RENAL MEDICINE PHYSICIAN-C with a diagnosis of Femoral nerve ligation. Date of Evaluation: 09/23/24 Physical Therapist: Pb Wright, PT, ATC Visit Plan Frequency: 3x /Week Duration: 4-6 Weeks Plan: R LE strengthening with primary focus on quads, core strengthening, gait training, stair negotiation, and HEP Subjective Subjective: Pt reports she had colon cancer in December of last year. 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 Pt notes they had to cut the femoral nerve in order to get that tumor fully out. This has resulted in R quad weakness. Pt notes she is having a hard time walking without her brace because her R knee wants to give out. Pt reports the doctor had to scape the tumor off of the femoral nerve. Pt reports she is completely numb on the anterior aspect of her R LE. Pt now walks with a walker, which she never used an AD prior to this surgery. Pt lives in a 2 story home with her bedroom up stairs. Pt reports she has to negotiate her steps on stair at a time. 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. Pt reports she has nerve pain today 4/10 Pain R ant thigh: Pain Intensity (Out of 10): 4 Pain Intensity Range: 7 Objective Objective: Neuro: B LE sensation is WNL to light touch Observation: Significant atrophy in R quad. MMT: L hip flex= 15, knee ext= 28; R hip flex= 7, ext= 0 #F ROM: WFL compared bilaterally Six min walk test: 1020 feet. Balance/Special Test Scores Lower Extremity Functional Score: 31 Goals Goal 1:: Increase R knee extension strength to 5 #F to aid with stair negotiation Goal Time Frame: 4-6 Weeks Goal 2:: Pt will be able to negotiate 10 stairs reciprocally with 1 handrail to aid with safety at home Goal Time Frame: 4-6 Weeks Goal 3:: I with HEP Goal Time Frame: 4-6 Weeks Rehabilitation Potential Physical Therapy Diagnosis: Pt has R LE weakness and an unsteady gait secondary to femoral nerve ligation Rehabilitation Potential: Good Anticipated Interventions Patient/Client Instruction: Educate patient on: Condition and Plan of Care For the Purpose of:: To improve self management Therapeutic Exercise to Include: Strength training, Endurance training, Balance training, Gait and locomotor training and Dynamic Lumbar Stabilization For the Purpose of:: To decrease pain, To improve muscle performance and motor function and To increase tolerance to activity/condition/position Text: Thank you for the opportunity to evaluate your patient. For Medicare and Medicare HMO plans, please review the plan of care and approve it. It will need to be FAXED BACK to us at [phone] for Medicare purposes. For Medicare only, by signing this I certify the plan of care. Please let me know if there are questions or concerns regarding this plan of care. Physician Signature: Date:
--- NOTE | 2024-11-19 13:06 | HP.PT.NRP ---
Patient Information Patient Information: MICK KOCH was seen in my office for initial evaluation on 09/23/24. The following Plan of Care was established for this patient: POC Established Initial Frequency: 3x /Week Initial Duration: 4-6 Weeks Anticipated Interventions Patient/Client Instruction: Educate patient on: Condition and Plan of Care For the Purpose of:: To improve self management Therapeutic Exercise to Include: Strength training, Endurance training, Balance training, Gait and locomotor training and Dynamic Lumbar Stabilization For the Purpose of:: To decrease pain, To improve muscle performance and motor function and To increase tolerance to activity/condition/position Last Seen Last Seen: This patient was last seen in our office . Pertinent comments regarding their Physical therapy will appear below: Pt has not returned in greater than 30 days and is discontinued at this time. At this point I will be discontinuing this patient from physical therapy. I would be happy to see this patient again in the future if found appropriate by the physician. Thank you! Pb Wright, PT, ATC Balance/Gait/Functional tests Balance/Special Test Scores Lower Extremity Functional Score: 31
== END 2024-10-18 19:00 | disposition home or self-care (01) ==
LOC: PT 08:30
DX: M79.606 Pain in leg, unspecified (principal)
CPT/HCPCS: 97110; 97161

== ENCOUNTER 2024-10-23 09:17 | Emergency (ER) | payer MEDICARE, SELFPAY ==
[2024-10-23 09:17] VITALS: BP 130/82; PULSE 110; RESP 16; TEMP 36.3; O2SAT 98
--- NOTE | 2024-10-23 09:30 | EX.ED.DYSGE1 ---
HPI History of Present Illness Chief Complaint: Nausea/Vomiting/Diarrhea Narrative Narrative: 64-year-old female past medical history of recurrent colon carcinoma, supposed to start chemotherapy soon, recently had Mediport inserted last week and had tooth extraction yesterday, presents with nausea and vomiting since this morning. Around 530, 4 hours ago, she started having multiple episodes of vomiting without hematemesis. She vomited [address] to the emergency department. She feels she is dehydrated. She states that previously she was on oral chemotherapy, and is supposed to start infusions of chemotherapy for her recurrent carcinoma. She knows what dehydration feels like, and states that she cannot tolerate even sips of water. [facility] Medical History Seizure disorder Hypotension Marijuana abuse Alcohol dependence ETOH abuse IBS (irritable bowel syndrome) Anxiety Depression Seizure Home Medications ?Medication ?Instructions ?Recorded ?Last Taken ?Type alendronate 70 mg tablet 70 mg PO QWEEK Bone Health 10/18/23 Unknown History buspirone 7.5 mg tablet 7.5 mg PO DAILY Mood 10/18/23 09/04/24 08:50 History sertraline 50 mg tablet 50 mg PO DAILY Mood 10/18/23 09/04/24 08:50 History acetaminophen 500 mg tablet 1,000 mg (2 x 500 mg) PO Q8 #0 tabs 09/12/24 Unknown Rx gabapentin 100 mg capsule 100 mg PO QHS 30 days #30 caps 09/12/24 Unknown Rx hydromorphone 2 mg tablet 2 - 4 mg (1 - 2 x 2 mg) PO Q4H PRN 09/12/24 Unknown Rx PRN PAIN 6-10 7 days #42 tabs hydroxyzine pamoate 25 mg capsule 50 mg (2 x 25 mg) PO TID PRN PRN 09/12/24 Unknown Rx Itching 30 days #90 caps lidocaine 5 % topical patch 2 patch topical DAILY 30 days #60 09/12/24 Unknown Rx ea methocarbamol 750 mg tablet 750 mg PO Q8 30 days #90 tabs 09/12/24 Unknown Rx ondansetron 4 mg disintegrating 4 mg PO Q8H PRN PRN Nausea 30 days 09/12/24 Unknown Rx tablet #90 tabs Allergy/AdvReac Type Severity Reaction Status Date / Time erythromycin base Allergy TONGUE Verified 04/08/24 14:38 PEELS Family History Sister Melanoma Father Prostate CA Surgical History History of placement of ureteral stent History of resection of small bowel History of right salpingo-oophorectomy History of lysis of adhesions History of exploratory laparotomy 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 No fevers or chills, no exacerbating or alleviating factors. She did have bowel movements this morning. EXAM Physical Exam Narrative Exam Narrative: Afebrile. Vital signs noted. Nontoxic-appearing. Cardiovascular examination reveals mild tachycardia. Lungs clear to auscultation bilaterally. Abdomen is soft and nontender without guarding or rebound. Positive bowel sounds. No distention. Neurological examination nonfocal, nonlateralizing. Const Vital Signs: 10/23/24 09:17 Temperature 97.4 F L Temperature Source Temporal Pulse Rate 110 H Respiratory Rate 16 Blood Pressure 130/82 H Blood Pressure Mean 98 Pulse Ox 98 Oxygen Delivery Method Room Air MDM MDM MDM Narrative Medical decision making narrative: The differential diagnosis includes but not limited to gastroenteritis versus gastritis versus bowel obstruction versus pancreatitis. Patient states she is really not having that much abdominal pain. I discussed with her possible CT imaging, but she is declining. She was told that it limits my ability to rule out any obstruction, but she states that the abdominal pain is not her main concern and that she feels more dehydrated. She will be bolused IV fluids. However, we will not use her Mediport because she states that she has not been cleared for its use yet. I will check a CBC, CMP, and lipase to help rule out pancreatitis and look for any electrolyte abnormality or dehydration. Patient bolused normal saline 1 L intravenously. I reviewed her laboratory work and she has normal white count of 6.3 with hemoglobin 13.2, hematocrit 40.5, platelet count normal at 293. Electrolyte panel is significant for low carbon dioxide of 16.5 but normal sodium and potassium. BUN 19 with creatinine low at 0.65. LFTs are grossly unremarkable. Lipase normal at 27 so I doubt acute pancreatitis. Upon repeat examination, patient may have been experiencing dry heaving but feels well enough to go home. I discussed with her an additional bolus of IV fluids but through shared decision making, she would like to be discharged and continue her Zofran at home and follow-up with her physicians. She has Zofran at home that she can continue. Return instructions reviewed. Disposition is discharged home in stable condition. History & Record Review Discussion w/independent historian: Patient Additional record(s) reviewed:: Prior ED visit (Seen previously in the ED by myself personally.) Lab Data Attestation: I reviewed the patient's lab results. Labs: Laboratory Results - last 24 hr 10/23/24 09:40 WBC 6.3 RBC 4.44 Hgb 13.2 Hct 40.5 MCV 91.2 MCH 29.7 MCHC 32.6 RDW Std Deviation 45.9 H RDW Coeff of Yury 13.6 Plt Count 293 MPV 9.4 Immature Gran % (Auto) 0.300 Neut % (Auto) 74.0 H Lymph % (Auto) 17.9 L [place] % (Auto) 4.8 Eos % (Auto) 2.2 Baso % (Auto) 0.8 Absolute Neuts (auto) 4.7 Absolute Lymphs (auto) 1.13 Nucleated RBC % 0 Sodium 138 Potassium 3.7 Chloride 108 Carbon Dioxide 16.5 L Anion Gap 14 BUN 19 Creatinine 0.65 L Est GFR (MDRD) Non-Af 98 BUN/Creatinine Ratio 29.3 H Glucose 139 H Calcium 9.4 Total Bilirubin 0.25 AST 23 ALT 8 Alkaline Phosphatase 100 Total Protein 7.7 Albumin 4.1 Globulin 3.6 Albumin/Globulin Ratio 1.2 Lipase 27 Discharge Plan Triage Chief Complaint: Nausea/Vomiting/Diarrhea ED Provider: Ankit Marsh Dx/Rx/DC Orders Clinical Impression: Colon cancer, Nausea and vomiting Instructions: ED Vomiting (Adult) Prescriptions: No Action sertraline 50 mg tablet 50 mg PO DAILY alendronate 70 mg tablet 70 mg PO QWEEK Patient Comments: Take once a week on Saturdays. buspirone 7.5 mg tablet 7.5 mg PO DAILY acetaminophen 500 mg Tablet 1,000 mg PO Q8 Qty: 0 0RF hydromorphone 2 mg Tablet 2 - 4 mg PO Q4H PRN PRN (Reason: PAIN 6-10) 7 Days Qty: 42 0RF methocarbamol 750 mg Tablet 750 mg PO Q8 30 Days Qty: 90 0RF lidocaine 5 % Adhesive Patch,Medicated 2 patch topical DAILY 30 Days Qty: 60 0RF gabapentin 100 mg Capsule 100 mg PO QHS 30 Days Qty: 30 0RF ondansetron 4 mg Tablet,Disintegrating 4 mg PO Q8H PRN PRN (Reason: Nausea) 30 Days Qty: 90 0RF hydroxyzine pamoate 25 mg Capsule 50 mg PO TID PRN PRN (Reason: Itching) 30 Days Qty: 90 0RF Primary Care Provider: Aubrey Lopez Referrals: Aubrey Lopez, FOOD AND [employer] COORDINATOR-C [Primary Care Provider] - As soon as possible Activity Restrictions/Additional Instructions: Continue your Zofran at home. Clear liquid diet and advance as tolerated. Drink plenty of oral fluids. Return with new or worsening symptoms. Print Language: Nepali Disposition Disposition: Home, Self Care
[2024-10-23 09:53] LABS: Hematocrit 40.5 % (37-47); Hemoglobin 13.2 g/dL (12.0-15.0); Immature Granulocytes Count 0.020 X10^3/uL (0.0-0.0); Mean Corp Hgb Conc 32.6 g/dL (32-36); Mean Corpuscular Volume 91.2 fL (81-99); Mean Platelet Vol. 9.4 fl (6.2-12.0); NRBC Flagged by Analyzer 0 % (0-5); Platelet Count 293 K/mm3 (150-450); RBC Distribution Width CV 13.6 % (11.6-14.6); RBC Distribution Width SD 45.9 fl (35.1-43.9); Red Blood Count 4.44 M/mm3 (4.2-5.4); White Blood Count 6.3 K/mm3 (4.4-11.0)
[2024-10-23] MEDS: 0.9% Normal Saline (1000mL) 1,000 ML 999 ML IV (10:02)
[2024-10-23 10:47] LABS: Lipase 27 U/L (13-75)
[2024-10-23 10:58] LABS: AST(SGOT) 23 U/L (<=31); Alanine Aminotransfer ALT/SGPT 8 U/L (<=34); Albumin, Serum 4.1 g/dL (3.4-4.8); Alkaline Phosphatase 100 U/L (35-104); Anion Gap 14 (5-15); BUN 19 mg/dL (4-19); BUN/Creat Ratio 29.3 RATIO (10-20); Calcium,Total 9.4 mg/dL (7.6-11.0); Carbon Dioxide 16.5 mmol/L (21.0-32.0); Chloride 108 mmol/L (98-108); Globulin 3.6 g/dL (2.2-4.2); Glucose 139 mg/dL (70-99); Potassium 3.7 mmol/L (3.3-5.1)
[2024-10-23 11:17] VITALS: BP 132/88; PULSE 99; RESP 18; O2SAT 99
[2024-10-23 11:38] VITALS: BP 132/88; PULSE 99; RESP 18; TEMP 36.6; O2SAT 99
== END 2024-10-23 11:49 | disposition home or self-care (01) ==
PROVIDERS: Emergency Provider Emergency Medicine; Visit Provider Emergency Medicine
DX: R11.2 Nausea with vomiting, unspecified (principal); C18.9 Malignant neoplasm of colon, unspecified; Z87.891 Personal history of nicotine dependence; Z92.21 Personal history of antineoplastic chemotherapy; F41.9 Anxiety disorder, unspecified; F32.A Depression, unspecified; Z79.899 Other long term (current) drug therapy; R19.7 Diarrhea, unspecified; Z90.721 Acquired absence of ovaries, unilateral; Z96.619 Presence of unspecified artificial shoulder joint
CPT/HCPCS: 80053; 83690; 85025; 96361; 96374; 99283; A4216; J2405

== ENCOUNTER 2024-11-07 11:17 | Inpatient (IN) | payer MEDICARE, SELFPAY ==
[2024-11-07 11:18] VITALS: BP 125/59; PULSE 83; RESP 20; TEMP 36.3; O2SAT 99
[2024-11-07 11:22] VITALS: BMI 14.7
--- NOTE | 2024-11-07 12:17 | CT_ITS ---
PROCEDURE: ABDOMEN/PELVIS W IV CONT ONLY 11/07/2024 REASON FOR EXAM: ABDOMINAL PAIN History of colon carcinoma. Prior resection. TECHNIQUE: ABDOMEN/PELVIS W IV CONT ONLY Coronal and Sagittal reconstruction series were provided. CONTRAST: Isovue-300 VOLUME: 75 mL One or more dose reduction techniques were used (e.g., Automated exposure control, adjustment of the mA and/or kV according to patient size, use of iterative reconstruction technique. RADIATION DOSE SUMMARY: CTDlvol: 12.36 mGy DLP: 227.06 mGycm COMPARISON: Prior study dated September 13, 2024. FINDINGS: Lung bases: Lung bases are clear. Small pericardial effusion at the base of the heart. Liver: Since prior study, there are multiple tiny hypodense nodules with rim enhancement throughout both the right and left lobes of the liver suggestive of possible metastatic disease. If the patient is septic, these may represent multiple small abscesses. Gallbladder: There is evidence of a 4 mm dense nodule in the inferior wall of the gallbladder. Spleen: Normal size. Pancreas: Normal size without evidence of mass surrounding inflammation or ductal dilation. Adrenals: Unremarkable Kidneys: Small cyst in the upper pole of the left kidney. Small cyst in the midportion of the right kidney. Bladder: Unremarkable Reproductive Organs: Normal uterine size and contour. Ovaries are unremarkable. Bowel: The patient is status post right hemicolectomy. There is evidence of circumferential wall thickening and edematous changes seen in the transverse colon as well as the descending colon. This is suggestive of colitis. Appendix: Status post appendectomy. Lymph nodes: Unremarkable. Vasculature: Mild diffuse atherosclerotic calcifications are noted. Peritoneum / Retroperitoneum: Small amount of free fluid in the pelvis. Bones: Degenerative changes of the spine. CT/Abdomen/Pelvis W IV Cont ONLY IMPRESSION: Findings suggestive of hepatic metastasis and/or small abscesses. Clinical cor relation recommended. Status post right hemicolectomy. Findings suggestive of colitis of the transverse colon and descending colon. Small amount of free fluid is seen in the pelvis. Reading Location: [place] [id number]
[2024-11-07] MEDS: fentaNYL 100 MCG/2 ML Ampul 50 MCG IV (12:24)
--- NOTE | 2024-11-07 12:24 | EDS_ITS ---
HPI HPI - GI History of Present Illness Chief Complaint: Abd Pain Narrative Narrative: Patient is a 64-year-old female presenting to the emergency department for abdominal pain. Patient has a past medical history of recurrent colon cancer, 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, GERD, seizure disorder. History in the patient is limited in our charts however patient states that she has had 2 colon resection surgeries. Has a prior surgical history of a appendectomy as well. Patient states that she recently had a pump placed. On chart review appears to be a mediport. States that she received her first infusion yesterday and at 3 AM she developed lower abdominal pain, nausea and vomiting. She describes the vomit as nonbloody, nonbilious. Denies diarrhea, dysuria or hematuria. [facility] Medical History Seizure disorder Hypotension Marijuana abuse Alcohol dependence ETOH abuse IBS (irritable bowel syndrome) Anxiety Depression Seizure Home Medications ?Medication ?Instructions ?Recorded ?Last Taken ?Type alendronate 70 mg tablet 70 mg PO QWEEK Bone Health 0 10/18/23 Unknown History buspirone 7.5 mg tablet 7.5 mg PO DAILY Mood 4 09/04/24 08:50 History sertraline 50 mg tablet 50 mg PO DAILY Mood 10/18/23 09/04/24 08:50 History acetaminophen 500 mg tablet 1,000 mg (2 x 500 mg) PO Q 8 #0 tabs 09/12/24 Unknown Rx gabapentin 100 mg capsule 100 mg PO QHS 30 days #30 ca ps 09/12/24 Unknown Rx hydromorphone 2 mg tablet 2 - 4 mg (1 - 2 x 2 mg) PO Q 4H PRN 09/12/24 Unknown Rx PRN PAIN 6-10 7 days #42 tabs hydroxyzine pamoate 25 mg capsule 50 mg (2 x 25 mg) PO TID PRN PRN 09/12/24 Unknown Rx Itching 30 days #90 caps lidocaine 5 % topical patch 2 patch topical DAILY 30 d ays #60 09/12/24 Unknown Rx ea methocarbamol 750 mg tablet 750 mg PO Q8 30 days #90 t abs 09/12/24 Unknown Rx ondansetron 4 mg disintegrating 4 mg PO Q8H PRN PRN Na usea 30 days 09/12/24 Unknown Rx tablet #90 tabs Allergy/AdvReac Type Severity Reaction Status Date / Time erythromycin base Allergy TONGUE Verified 11/07/24 11:22 PEELS Family History Sister Melanoma Father Prostate CA Surgical History History of placement of ureteral stent History of resection of small bowel History of right salpingo-oophorectomy History of lysis of adhesions History of exploratory laparotomy 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 No acute distress. Chronically unwell appearing. HEENT: Head is normocephalic and atraumatic, sinuses nontender, pupils equal round and reactive. Nares are patent. Oropharynx and throat exams normal. Neck: Supple without lymphadenopathy nontender Cardiovascular: Regular rate and rhythm, no murmurs. No rubs or gallops. Normal S1 and S2 Respiratory: Clear to auscultation bilaterally. No wheezes, rales, rhonchi Abdominal: Soft and tender to palpation diffusely in the lower abdomen. Normal bowel sounds. No guarding or rebound. Nonsurgical abdomen Extremities: No tenderness. No bruising. Normal range of motion. Normal sensation. Skin: No rash or redness. Neurological: Cranial nerves II through XII are grossly intact. Normal strength and sensation. Normal cerebellar function The rest of the physical exam is unremarkable Const Vital Signs: 11/07/24 11:18 11/07/24 14:20 Temperature 97.4 F L Temperature Source Temporal Pulse Rate 83 85 Respiratory Rate 20 H 16 Blood Pressure 125/59 H 114/60 Blood Pressure Mean 81 78 Pulse Ox 99 99 Oxygen Delivery Method Room Air MDM MDM MDM Narrative Medical decision making narrative: Patient is a 64-year-old female presenting to emergency department for abdominal pain, nausea and vomiting. Patient was seen and examined. Vitals are stable. Patient resting in bed comfortably. No acute distress, does appear uncomfortable. Differential includes but is not limited to: Medication side effect, bowel obstruction, bowel perforation, UTI, diverticulitis Patient given analgesia, took zofran before coming, declines antiemetic. CBC with a leukocytosis of 19.9 and anemia of 10.5. Lactate elevated at 2.2. CMP with hypokalemia of 3.0. Lipase within normal limits. CT shows findings suggestive of hepatic metastasis and/or small abscesses. Clinical correlation recommended. Status post right hemicolectomy. Findings suggestive of colitis of the transverse colon and descending colon.Small amount of free fluid is seen in the pelvis. Discussed findings with patient and friend at bedside. I suspect that the patient's pain is secondary to her colitis and we incidentally found the liver changes. She does not have any risk factors for liver abscesses. Will cover with Zosyn for coverage of both the possible abscesses and colitis. Given the high leukocytosis and her lactic will require admission. Patient admitted to hospitalist for further management. Clinical impression: 1. Colitis 2. Leukocytosis 3. Nausea and vomiting History & Record Review Discussion w/independent historian: Patient and Friend Lab Data Attestation: I reviewed the patient's lab results. Labs: Laboratory Results - last 24 hr 11/07/24 12:25 WBC 19.9 H RBC 3.43 L Hgb 10.5 L Hct 30.3 L MCV 88.3 MCH 30.6 MCHC 34.7 RDW Std Deviation 42.7 RDW Coeff of [place] 13.3 Plt Count 283 MPV 9.5 Immature Gran % (Auto) 0.600 Neut % (Auto) 90.3 H Lymph % (Auto) 5.6 L [place] % (Auto) 3.3 Eos % (Auto) 0.0 Baso % (Auto) 0.2 Absolute Neuts (auto) 18.0 H Absolute Lymphs (auto) 1.12 Nucleated RBC % 0 Sodium 140 Potassium 3.0 L Chloride 104 Carbon Dioxide 21.4 Anion Gap 14 BUN 15 Creatinine 0.58 L Estim Creat Clear Calc 43.16 L Est GFR (MDRD) Non-Af 100 BUN/Creatinine Ratio 24.9 H Glucose 145 H Lactic Acid 2.2 H* Calcium 8.7 Total Bilirubin 0.19 AST 23 ALT 10 Alkaline Phosphatase 74 Total Protein 6.5 Albumin 3.8 Globulin 2.7 Albumin/Globulin Ratio 1.4 Lipase 29 Radiography Diagnostic Testing: Clinical Impression(s) from Imaging Studies Abdomen/Pelvis CT 11/07/24 12:17 IMPRESSION: Findings suggestive of hepatic metastasis and/or small abscesses. Clinical correlation recommended. Status post right hemicolectomy. Findings suggestive of colitis of the transverse colon and descending colon. Small amount of free fluid is seen in the pelvis. Reading Location: [place] [id number] Discharge Plan Triage Chief Complaint: Abd Pain ED Provider: Lluvia Vann Dx/Rx/DC Orders Prescriptions: No Action sertraline 50 mg tablet 50 mg PO DAILY alendronate 70 mg tablet 70 mg PO QWEEK Patient Comments: Take once a week on Saturdays. buspirone 7.5 mg tablet 7.5 mg PO DAILY acetaminophen 500 mg Tablet 1,000 mg PO Q8 Qty: 0 0RF hydromorphone 2 mg Tablet 2 - 4 mg PO Q4H PRN PRN (Reason: PAIN 6-10) 7 Days Qty: 42 0RF methocarbamol 750 mg Tablet 750 mg PO Q8 30 Days Qty: 90 0RF lidocaine 5 % Adhesive Patch,Medicated 2 patch topical DAILY 30 Days Qty: 60 0RF gabapentin 100 mg Capsule 100 mg PO QHS 30 Days Qty: 30 0RF ondansetron 4 mg Tablet,Disintegrating 4 mg PO Q8H PRN PRN (Reason: Nausea) 30 Days Qty: 90 0RF hydroxyzine pamoate 25 mg Capsule 50 mg PO TID PRN PRN (Reason: Itching) 30 Days Qty: 90 0RF Primary Care Provider: Aubrey Lopez Referrals: Aubrey Lopez, ASSEMBLY MEMBER-C [Primary Care Provider] - Print Language: Ivorian
[2024-11-07 12:40] LABS: Hematocrit 30.3 % (37-47); Hemoglobin 10.5 g/dL (12.0-15.0); Immature Granulocytes Count 0.120 X10^3/uL (0.0-0.0); Mean Corp Hgb Conc 34.7 g/dL (32-36); Mean Corpuscular Volume 88.3 fL (81-99); Mean Platelet Vol. 9.5 fl (6.2-12.0); NRBC Flagged by Analyzer 0 % (0-5); Platelet Count 283 K/mm3 (150-450); RBC Distribution Width CV 13.3 % (11.6-14.6); RBC Distribution Width SD 42.7 fl (35.1-43.9); Red Blood Count 3.43 M/mm3 (4.2-5.4); White Blood Count 19.9 K/mm3 (4.4-11.0)
[2024-11-07 13:23] LABS: AST(SGOT) 23 U/L (<=31); Alanine Aminotransfer ALT/SGPT 10 U/L (<=34); Albumin, Serum 3.8 g/dL (3.4-4.8); Alkaline Phosphatase 74 U/L (35-104); Anion Gap 14 (5-15); BUN 15 mg/dL (4-19); BUN/Creat Ratio 24.9 RATIO (10-20); Calcium,Total 8.7 mg/dL (7.6-11.0); Carbon Dioxide 21.4 mmol/L (21.0-32.0); Chloride 104 mmol/L (98-108); Estimated Creatinine Clearance 43.16 ml/min (50-250); Globulin 2.7 g/dL (2.2-4.2); Glucose 145 mg/dL (70-99); Lipase 29 U/L (13-75); Potassium 3.0 mmol/L (3.3-5.1)
[2024-11-07] MEDS: HYDROmorphone 0.5 MG/0.5 ML SYRINGE IV ×2 (13:36→21:57)
--- NOTE | 2024-11-07 14:00 | ED.RN ---
PRIOR TO BLOOD BEING SENT TO THE LAB- PT WAS VERY UPSET ABOUT BEING HERE. SHE STATED THAT SHE JUST WANTS TO GO HOME AND WE CAN CALL HER WITH THE RESULTS. PT REFUSED GOWN. WHEN ADVISED IT WOULD BE AN HOUR WAIT FOR BLOOD WORK, PT AGAIN GOT ANGRY AND WANTED TO GO HOME. DR ZENDEJAS WAS MADE AWARE AND STATED THAT IF PT DIDNT WANT TO WAIT, SHE WOULD HAVE TO SIGN OUT AMA. FRIEND WAS MADE AWARE OF THIS. HE STATED THAT HE WANTS HER TO STAY BUT HE WOULD TALK TO HER. PT IS FRUSTRATED WITH THE WAIT EVERYWHERE THEY GO. I APOLOGIZED MULTIPLE TIMES.
[2024-11-07 14:07] LABS: Mucous, Urine 0 SEEN /hpf (<or=2+); Red Blood Cells-Urine 0 SEEN /hpf (0-5); Squamous Epithelial Cells - UA 0 SEEN /hpf (5-10)
[2024-11-07 14:12] LABS: Color, Urine Yellow (Yellow); Glucose, Dipstick Normal (Normal); Ketone-Dipstick Negative (Negative); Leukocyte Esterase-Dipstick Negative /ul (Negative); Nitrite-Dipstick Negative (Negative); Occult Blood-Urine Negative /ul (Negative); Protein-Dipstick Negative (Negative); Specific Gravity, Urine 1.010 (1.002-1.030); Urine Bilirubin Dipstick Negative (Negative)
[2024-11-07 14:20] VITALS: BP 114/60; PULSE 85; RESP 16; O2SAT 99
[2024-11-07] MEDS: Piperacil/Tazobactam 3.375 GM in 0.9% Normal Saline (50mL MB+) 50 ML IV (14:29)
[2024-11-07] MEDS: 0.9% Normal Saline (1000mL) 1,000 ML 1000 ML IV (14:34)
--- NOTE | 2024-11-07 15:14 | PCM.HP.STD ---
HPI - General General Date of Admission: 11/07/24 Date of Service: 11/07/24 Chief Complaint: Abdominal pain HPI Narrative MICK KOCH, is a 64-year-old female history of recurrent colon cancer, GERD, recent port placement and first dose of chemotherapy, anxiety who presented [facility] ED 11/07/2024 for abdominal pain. She has a history of 2 colon resections at [facility] and had port placed and just started chemotherapy with first infusion yesterday and at 3 AM she developed lower abdominal pain, nausea, and vomiting. No diarrhea. In the ED temp 97.4, heart rate 83 and blood pressure 125/59, respiratory rate 20 and pulse ox 99% on room air. CBC with a white blood cell count of 19.9, hemoglobin 10.5, CMP with potassium of 3 and glucose 145, BUN 15 and creatinine 0.58 with normal liver panel, lactic 2.2 and lipase of 29. She did have CT abdomen pelvis with findings suggestive of hepatic metastasis and/or small abscesses and recommended clinical correlation, also showed findings suggestive of colitis of the transverse colon and descending colon. Patient given IV fluids and Zosyn, medications for pain control and hospitalist contacted for admission. Patient evaluated at bedside. She reports history as above and notes that she has had nausea, vomiting, diarrhea and abdominal pain more so in her lower abdomen since overnight, initially went to the out Patient [facility] and they sent her to the ED. Continues to have the pain in the lower abdomen, denies right upper quadrant or upper abdominal pain, denies any fevers at home, no cough, chest pain, shortness of breath. Does report she feels she has had a little bit of a hard time emptying her bladder. [facility] Medical History Seizure disorder Hypotension Marijuana abuse Alcohol dependence ETOH abuse IBS (irritable bowel syndrome) Anxiety Depression Seizure Home Medications ?Medication ?Instructions ?Recorded ?Last Taken ?Type alendronate 70 mg tablet 70 mg PO QWEEK Bone Health 10/18/23 Unknown History buspirone 7.5 mg tablet 7.5 mg PO DAILY Mood 10/18/23 09/04/24 08:50 History sertraline 50 mg tablet 50 mg PO DAILY Mood 10/18/23 09/04/24 08:50 History acetaminophen 500 mg tablet 1,000 mg (2 x 500 mg) PO Q8 #0 tabs 09/12/24 Unknown Rx gabapentin 100 mg capsule 100 mg PO QHS 30 days #30 caps 09/12/24 Unknown Rx hydromorphone 2 mg tablet 2 - 4 mg (1 - 2 x 2 mg) PO Q4H PRN 09/12/24 Unknown Rx PRN PAIN 6-10 7 days #42 tabs hydroxyzine pamoate 25 mg capsule 50 mg (2 x 25 mg) PO TID PRN PRN 09/12/24 Unknown Rx Itching 30 days #90 caps lidocaine 5 % topical patch 2 patch topical DAILY 30 days #60 09/12/24 Unknown Rx ea methocarbamol 750 mg tablet 750 mg PO Q8 30 days #90 tabs 09/12/24 Unknown Rx ondansetron 4 mg disintegrating 4 mg PO Q8H PRN PRN Nausea 30 days 09/12/24 Unknown Rx tablet #90 tabs Allergy/AdvReac Type Severity Reaction Status Date / Time erythromycin base Allergy TONGUE Verified 11/07/24 11:22 PEELS Family History Sister Melanoma Father Prostate CA Surgical History History of placement of ureteral stent History of resection of small bowel History of right salpingo-oophorectomy History of lysis of adhesions History of exploratory laparotomy 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 Social History household members: none housing: apartment Smoking Status: Former smoker alcohol intake: former year quit: 2020 substance use type: marijuana ROS ROS Narrative General: Denies fever/chills HENT: Denies headache, denies stuffy nose, denies sore throat EYES: Denies changes in vision Resp: Denies cough, denies shortness of breath Cardiac: Denies chest pain GI: abd pain specifically in lower quadrants, diarrhea, n/v : Does feel she has had a little bit of a hard time emptying her bladder Extremity: Denies swelling MSK: Denies weakness Neuro: Denies any numbness/tingling Heme: Denies any bleeding or bruising Skin: Denies rashes Psychiatric: No complaints voiced Vital Signs Vital Signs Vital Signs: 11/07/24 11:18 11/07/24 14:20 Temperature 97.4 F L Temperature Source Temporal Pulse Rate 83 85 Respiratory Rate 20 H 16 Blood Pressure 125/59 H 114/60 Blood Pressure Mean 81 78 Pulse Ox 99 99 Oxygen Delivery Method Room Air Weight Weight: 39 kg Body Mass Index (BMI) 14.7 Physical Exam Narrative General: Alert, oriented HEENT: Atraumatic, normocephalic Eyes: Anicteric, normal conjunctiva, extraocular movements grossly intact Neck: Supple Respiratory: Clear to auscultation bilaterally, normal respiratory effort Cardiovascular: Regular rate and rhythm GI: Soft, some tenderness in the suprapubic and lower quadrants, no epigastric or right upper quadrant pain Extremities: No edema Musculoskeletal: Moving all extremities Neuro: No overt focal neurological deficits Skin: No rashes appreciated Psych: Cooperative Results Lab / Micro Data 11/07/24 12:25 11/07/24 12:25 Labs: Laboratory Results - last 24 hr 11/07/24 12:25: WBC 19.9 H, RBC 3.43 L, Hgb 10.5 L, Hct 30.3 L, MCV 88.3, MCH 30.6, MCHC 34.7, RDW Std Deviation 42.7, RDW Coeff of Yury 13.3, Plt Count 283, MPV 9.5, Immature Gran % (Auto) 0.600, Neut % (Auto) 90.3 H, Lymph % (Auto) 5.6 L, [place] % (Auto) 3.3, Eos % (Auto) 0.0, Baso % (Auto) 0.2, Absolute Neuts (auto) 18.0 H, Absolute Lymphs (auto) 1.12, Nucleated RBC % 0, Sodium 140, Potassium 3.0 L, Chloride 104, Carbon Dioxide 21.4, Anion Gap 14, BUN 15, Creatinine 0.58 L, Estim Creat Clear Calc 43.16 L, Est GFR (MDRD) Non-Af 100, BUN/Creatinine Ratio 24.9 H, Glucose 145 H, Lactic Acid 2.2 H*, Calcium 8.7, Total Bilirubin 0.19, AST 23, ALT 10, Alkaline Phosphatase 74, Total Protein 6.5, Albumin 3.8, Globulin 2.7, Albumin/Globulin Ratio 1.4, Lipase 29 Imaging Radiology Impression Abdomen/Pelvis CT 11/07/24 12:17 IMPRESSION: Findings suggestive of hepatic metastasis and/or small abscesses. Clinical correlation recommended. Status post right hemicolectomy. Findings suggestive of colitis of the transverse colon and descending colon. Small amount of free fluid is seen in the pelvis. Reading Location: [facility] Assessment & Plan Assessment/Plan (1) Abdominal pain: PLAN: Plan # Abdominal pain, nausea, vomiting suspect secondary to colitis -Colitis seen on CT scan -Elevated white blood cell count -IV fluids, Zosyn -Supportive care -Given her reports of additional diarrhea we will check stool studies if able - Transitional diet, advance as tolerated -UA pending # Hepatic lesions -More likely hepatic metastasis but cannot rule out abscesses given concern for infection -Liver function tests on CMP within normal limits -Patient on Zosyn -Will order MRI for better characterization as that would likely change treatment # Recurrent colon cancer -Following with the [facility] -Has Mediport and had her first chemotherapy yesterday -Will continue to follow with them on discharge #Hypokalemia -Replace -Repeat in the AM #Depression/anxiety -Continue home medications #DVT ppx: SCDs Annette Mendez MD Charges/Coding Visit Charges Inpatient E&M: 78306 Init Hosp L2
--- NOTE | 2024-11-07 15:28 | MRI_ITS ---
PROCEDURE: MRI ABD WITH AND W/O CONTRAST 11/07/2024 REASON FOR EXAM: HEPATIC METS VS ABSCESSES TECHNIQUE: MRI ABD WITH AND W/O CONTRAST Multiplanar and multisequence images were obtained. CONTRAST: Clariscan VOLUME: A mL COMPARISON: 11/07/2024 and 08/2024 CT. FINDINGS: Liver: Multiple lesions of varying sizes up to 10 mm throughout the liver, demonstrating restricted diffusion, moderate T2 hyperintensity, T1 hypointensity, thin peripheral enhancement on early arterial phase with slow progressive enhancement on later phases, remaining hypointense relative to liver parenchyma. Gallbladder: Unremarkable. Biliary tree: No intrahepatic or extrahepatic biliary dilatation. Pancreas: Unremarkable. Spleen: Unremarkable. Adrenals: Unremarkable. Kidneys: Simple cyst in the upper pole of the left kidney. Bowel: Prior right hemicolectomy. Lymph nodes: No suspicious lymphadenopathy. Other: No ascites. MRI/MRI Abd WITH and W/O Contrast IMPRESSION: *Multiple small hepatic lesions with imaging features most consistent with hepa tic metastases in the setting of known colorectal carcinoma. *Simple left renal upper pole cyst. *Status post right hemicolectomy. Reading Location: [id number]
[2024-11-07 16:15] VITALS: BP 135/88; PULSE 76; RESP 18; TEMP 36.6; O2SAT 96
[2024-11-07 16:28] VITALS: BMI 15.7
[2024-11-07 16:33] LABS: Reflex Lactate? Y
[2024-11-07 16:54] VITALS: BP 108/63; PULSE 80; RESP 16; TEMP 37.3; O2SAT 96
[2024-11-07] MEDS: Potassium Chloride Oral Tablet 20 MEQ 40 MEQ PO (18:10)
--- NOTE | 2024-11-07 18:18 | PCM.HOSP.N ---
Hospitalist Note Received page regarding patient's history of seizures. Reportedly she has a history of episodes where she will get a d?j? vu-like feeling and then will feel tremors and then a hot flash, this happens intermittently and has happened a couple times today (this had not been endorsed at time of admission) but was endorsed on the floor. Reviewed records and appears patient was on Depakote at one point. She reports she was taken off of Depakote and had what sounds to be a long-term EEG that was never able to capture any of the episodes and she has not presently on Depakote or any other antiseizure medication. Patient does not have any full body tremors or loss of consciousness during these episodes, reportedly 1 happened while nurse was in the room with patient and she notified the nurse that was happening and the only thing that was outwardly noticeable when she held her hand out was a little bit of a tremor and the episode passed without any incident. Doubt ordering this by EEG would capture these episodes given this was unsuccessful in the past and they are sporadic, given patient was taken off of antiseizure medication it is unclear long-term diagnosis or goal. Advised to let me know if patient continues to have further episodes, if so we will consider restarting her Depakote and she can follow-up outpatient with her providers for further determination treatment and/or workup
[2024-11-07] MEDS: 0.9% Normal Saline (1000mL) 1,000 ML 75 ML IV (20:56)
[2024-11-07] MEDS: Vancomycin 125 MG/5 ML Susp PO.SYRINGE PO (21:57)
[2024-11-07 22:00] VITALS: BP 107/59; PULSE 62; RESP 16; TEMP 37.2; O2SAT 97
[2024-11-07 22:26] VITALS: PULSE 62
[2024-11-08 04:00] VITALS: BP 122/59; PULSE 79; RESP 16; TEMP 36.8; O2SAT 95
[2024-11-08] MEDS: HYDROmorphone 0.5 MG/0.5 ML SYRINGE IV (04:18)
[2024-11-08] MEDS: Vancomycin 125 MG/5 ML Susp PO.SYRINGE PO (06:21)
[2024-11-08 06:39] LABS: Hematocrit 27.5 % (37-47); Hemoglobin 9.1 g/dL (12.0-15.0); Immature Granulocytes Count 0.080 X10^3/uL (0.0-0.0); Mean Corp Hgb Conc 33.1 g/dL (32-36); Mean Corpuscular Volume 90.2 fL (81-99); Mean Platelet Vol. 9.2 fl (6.2-12.0); NRBC Flagged by Analyzer 0 % (0-5); Platelet Count 228 K/mm3 (150-450); RBC Distribution Width CV 13.8 % (11.6-14.6); RBC Distribution Width SD 45.4 fl (35.1-43.9); Red Blood Count 3.05 M/mm3 (4.2-5.4); White Blood Count 12.2 K/mm3 (4.4-11.0)
[2024-11-08 06:49] LABS: Prothrombin Time (Protime)PT. 13.9 SECONDS (11.7-14.9)
[2024-11-08 07:35] LABS: AST(SGOT) 22 U/L (<=31); Alanine Aminotransfer ALT/SGPT 10 U/L (<=34); Albumin, Serum 3.2 g/dL (3.4-4.8); Alkaline Phosphatase 52 U/L (35-104); Anion Gap 9 (5-15); BUN 15 mg/dL (4-19); BUN/Creat Ratio 27.7 RATIO (10-20); Calcium,Total 8.2 mg/dL (7.6-11.0); Carbon Dioxide 22.4 mmol/L (21.0-32.0); Chloride 109 mmol/L (98-108); Estimated Creatinine Clearance 44.68 ml/min (50-250); Globulin 2.0 g/dL (2.2-4.2); Glucose 98 mg/dL (70-99); Potassium 3.8 mmol/L (3.3-5.1)
[2024-11-08 08:40] VITALS: BP 117/60; PULSE 76; RESP 17; TEMP 36.9; O2SAT 98
[2024-11-08] MEDS: 0.9% Normal Saline (1000mL) 1,000 ML 75 ML IV (08:42)
[2024-11-08] MEDS: Ensure Plus High Protein 120 ML LIQUID PO (08:42)
--- NOTE | 2024-11-08 09:29 | CASEMGMT ---
Dx: Colitis LACE: 2 6-Clicks: 24 Medical record reviewed and patient evaluated for identification of discharge planning needs. Based on this review, at this time criteria are not present to indicate a need for discharge planning. Will remain available to assist with discharge planning needs as identified or requested.
--- NOTE | 2024-11-08 10:58 | NURSING ---
Addendum entered by Chio Blount 11/08/24 11:38: This RN was notified that pt would like to leave AMA. This RN went in to room and pt requested AMA papers. Dr Puga notified and he said that he would enter formal DC instructions for pt, rather than pt leaving AMA. Pt advised to warehouse picker vancomycin prescription and f/u with oncology. Pt accepting of plan. Original Note: This RN was notified by BORIS Vasquez and junior legal secretary Gloria that pt was tearful and frustrated in room d/t receiving bad news. This RN went in to pt room and pt said that she needed to go outside to scream. This RN told pt that per policy, she is not able to leave floor and she would have to leave AMA if she would like to leave, as she is not medically cleared according to Dr Puga. The pt was visibly upset and said that her friend was coming to visit her, and she would decide if she would be leaving AMA after talking to friend. Dr Puga aware, will continue to monitor.
--- NOTE | 2024-11-08 11:31 | DCINST_ITS ---
Discharge Instructions DC O2, CPAP, BIPAP needs Home O2 Discharge instructions: No Dressing / Incision Discharge Activity: No Restrictions Follow Up Care Test Results: Test results from this visit will be discussed in further detail at your follow- up appointment, if applicable. Discharge Plan Admission Admit Date/Time: 11/07/24 15:14 Primary Reason for Your Visit: abdominal pain w/ diarrhea Attending Provider: Saroj Puga Primary Care Provider: Aubrey Lopez Consulting Providers: Annette Mendez Discharge Orders/Prescriptions Prescriptions: New vancomycin [Firvanq] 25 mg/mL Recon Soln 125 mg PO Q6 9 Days Qty: 180 0RF Continued sertraline 50 mg tablet 50 mg PO DAILY alendronate 70 mg tablet 70 mg PO QWEEK Patient Comments: Take once a week on Saturdays. buspirone 7.5 mg tablet 7.5 mg PO DAILY hydromorphone 2 mg Tablet 2 - 4 mg PO Q4H PRN PRN (Reason: PAIN 6-10) 7 Days Qty: 42 0RF methocarbamol 750 mg Tablet 750 mg PO Q8 30 Days Qty: 90 0RF lidocaine 5 % Adhesive Patch,Medicated 2 patch topical DAILY 30 Days Qty: 60 0RF gabapentin 100 mg Capsule 100 mg PO QHS 30 Days Qty: 30 0RF ondansetron 4 mg Tablet,Disintegrating 4 mg PO Q8H PRN PRN (Reason: Nausea) 30 Days Qty: 90 0RF hydroxyzine pamoate 25 mg Capsule 50 mg PO TID PRN PRN (Reason: Itching) 30 Days Qty: 90 0RF Discontinued acetaminophen 500 mg Tablet 1,000 mg PO Q8 Qty: 0 0RF Referrals / Follow Up: Aubrey Lopez, LUNCH TRUCK DRIVER-C [Primary Care Provider] - Disposition Disposition (needs filled in before D/C Order can be placed): Home, Self Care
--- NOTE | 2024-11-08 11:31 | PCM.DC.SUM ---
Providers Date of Admission: 11/07/24 Date of Discharge: 11/08/24 Primary Care Physician: VEENA Kothari, PHYSICAL DIRECTOR-C Reason For Visit: ABDOMINAL PAIN, COLITIS, LIVER LESIONS Diagnosis Discharge Diagnosis (1) Abdominal pain: Status: Acute Code(s): R10.9 - Unspecified abdominal pain Medications at Discharge Home Medications alendronate 70 mg tablet 70 mg PO QWEEK Bone Health 10/18/23 buspirone 7.5 mg tablet 7.5 mg PO DAILY Mood 10/18/23 sertraline 50 mg tablet 50 mg PO DAILY Mood 10/18/23 gabapentin 100 mg capsule 100 mg PO QHS 30 days #30 caps 09/12/24 hydromorphone 2 mg tablet 2 - 4 mg (1 - 2 x 2 mg) PO Q4H PRN PRN PAIN 6-10 7 days #42 tabs 09/12/24 hydroxyzine pamoate 25 mg capsule 50 mg (2 x 25 mg) PO TID PRN PRN Itching 30 days #90 caps 09/12/24 lidocaine 5 % topical patch 2 patch topical DAILY 30 days #60 ea 09/12/24 methocarbamol 750 mg tablet 750 mg PO Q8 30 days #90 tabs 09/12/24 ondansetron 4 mg disintegrating tablet 4 mg PO Q8H PRN PRN Nausea 30 days #90 tabs 09/12/24 vancomycin 25 mg/mL oral solution (Firvanq) 125 mg (5 mL) PO Q6 9 days #180 mL 11/08/24 Hospital Course Operations None Procedures - (CT abdomen pelvis, MRI abdomen) Summary of Care Provided Minutes Spent on Discharge: 35 Hospital Course: Patient is a 64-year-old female who presented to [facility] ED on 11/07/2024 with abdominal pain and diarrhea. Short hospital course as noted below. Patient discharged home in stable condition on 11/08. 1. Colitis ? Presented with abdominal pain and diarrhea. CT abdomen pelvis showed findings suggestive of colitis of the transverse and descending colon (is status post right hemicolectomy as below). C. difficile toxin negative but antigen was positive. Started on p.o. vancomycin on admission and patient had cessation of diarrhea by late evening on day of admission. Unclear if colitis is secondary to C. difficile colitis versus due to initiation of new chemotherapy as below, given symptoms resolved more quickly than would be expected for C. difficile. Notably did have WBC count of 19 on admit, improved to 12 on hospital day 2. No fevers noted. Will empirically treat with 10-day course of p.o. vancomycin on discharge. Further management of cancer and chemotherapy agents per oncology as below. 2. Colon cancer with suspected new hepatic metastases ? Follows with Dr. Poole. Unable to review his office notes. Per notes in our chart and patient report, patient was hospitalized here in August 2023 for acute 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 with perforation. Followed with surgery in the office and repeat CT scans noted continued thickening of the terminal ileum. [facility] and was found to have right-sided colon cancer s/p right sided hemicolectomy. She was then initiated on oral chemotherapy. Per her report, initially had good response to treatment but then had worsening symptoms this spring, and on imaging she was found to have recurrent cancer. Recently had Mediport placed and was initiated on FOLFOX chemotherapy. She received her first dose of FOLFOX 2 days prior to this admission. As above, unclear if this contributed to her presentation with colitis as above. Importantly, CT abdomen pelvis on admit showed numerous small hepatic lesions concerning for metastases. MRI abdomen confirmed multiple small hepatic lesions most consistent with hepatic metastasis. No further inpatient needs but will need close outpatient follow-up with oncology on discharge. 3. Hypokalemia, resolved ? Potassium 3.0 on admit, repleted with improvement to 3.8 on hospital day 2. 4. Anxiety/depression ? Patient with known history of significant anxiety with depression. On hospital day 2 after being told of concern for new areas of cancer in her liver, she became very anxious and was asking to leave the hospital. Given her significant improvement in colitis symptoms with improving lab findings, as well as for tolerating a transitional diet without issue, decision was made to discharge the patient home midday. Continue home medications at discharge. 5. Chronic normocytic anemia ? Hemoglobin 10.5 on admit, decreased to 9.1 on hospital day 2 after significant IV fluid resuscitation. Baseline hemoglobin appears to be around 9-11. Patient denies any dark or bloody stools. Recommend repeat CBC in 1 week to ensure that hemoglobin remains stable. 6. Underweight BMI ? BMI 15.8 on admit. Presumed secondary to cancer as above. Recommended increase protein intake on discharge as able. Total clinical time spent by myself addressing the patient's medical issues, reviewing all the data, and collaborating with patient's care team: 35 minutes. Physical Exam Const alert, oriented x3 and no apparent distress Constitutional Narrative: Upper middle-aged female, thin and somewhat cachectic appearing, mildly anxious appearing, otherwise sitting back comfortably in bed, conversing normally, in no acute distress. General Appearance: cooperative and comfortable HEENT normocephalic, head/scalp atraumatic, hearing grossly normal bilaterally, nasal mucous membranes and turbinates normal and moist oral mucous membranes Eyes PERRL, EOMs intact bilaterally and conjunctivae normal Neck full ROM Chest inspection of chest normal Resp normal respiratory effort, normal air movement, no use of accessory muscles and clear to auscultation bilaterally Cardio regular rate, regular rhythm, no murmurs and peripheral pulses 2+ throughout GI GI Narrative: Mild tenderness to palpation in left lower quadrant. Abdomen otherwise soft and nondistended with normoactive bowel sounds. Back/Spine normal ROM Extremity normal to inspection, full ROM and no pedal edema Skin no rashes or lesions noted Psych mental status grossly normal Mood & Affect: anxious Weight / BMI Weight Weight: 40.37 kg Body Mass Index (BMI) 15.7 ABG / Lab / Microbiology Data 11/08/24 06:20 11/08/24 06:20 Laboratory: Laboratory Results - last 24 hr 11/07/24 18:42: Lactic Acid 1.8 11/08/24 06:20: WBC 12.2 H, RBC 3.05 L, Hgb 9.1 L, Hct 27.5 L, MCV 90.2, MCH 29.8, MCHC 33.1, RDW Std Deviation 45.4 H, RDW Coeff of Yury 13.8, Plt Count 228, MPV 9.2, Immature Gran % (Auto) 0.700, Neut % (Auto) 77.7 H, Lymph % (Auto) 15.0 L, [place] % (Auto) 6.4, Eos % (Auto) 0.0, Baso % (Auto) 0.2, Absolute Neuts (auto) 9.5 H, Absolute Lymphs (auto) 1.82, Nucleated RBC % 0, PT 13.9, INR 1.1, Sodium 140, Potassium 3.8, Chloride 109 H, Carbon Dioxide 22.4, Anion Gap 9, BUN 15, Creatinine 0.53 L, Estim Creat Clear Calc 44.68 L, Est GFR (MDRD) Non-Af 103, BUN/Creatinine Ratio 27.7 H, Glucose 98, Calcium 8.2, Total Bilirubin 0.31, AST 22, ALT 10, Alkaline Phosphatase 52, Total Protein 5.3 L, Albumin 3.2 L, Globulin 2.0 L, Albumin/Globulin Ratio 1.6 Microbiology: Microbiology 11/07/24 18:00 Stool Enteric Bacteriology - Final 11/07/24 18:00 Stool C. difficile GDH Antigen & Toxins - Final 11/07/24 18:00 Stool Clostridioides difficile (PCR) - Final Radiography Diagnostic Testing: Radiology Impression Abdomen MRI 11/07/24 15:28 IMPRESSION: *Multiple small hepatic lesions with imaging features most consistent with hepatic metastases in the setting of known colorectal carcinoma. *Simple left renal upper pole cyst. *Status post right hemicolectomy. Reading Location: [id number] D/C Instructions DC O2, CPAP, BIPAP Needs Home O2 Discharge instructions: No Meaningful Use Info Meaningful Use Meaningful Use Diagnoses (Choose all that apply): None applicable Discharge Plan Admission Admit Date/Time: 11/07/24 15:14 Primary Reason for Your Visit: abdominal pain w/ diarrhea Attending Provider: Saroj Puga Primary Care Provider: Aubrey Lopez [facility] Consulting Providers: Annette Mendez Discharge Orders/Prescriptions Prescriptions: New vancomycin [Firvanq] 25 mg/mL Recon Soln 125 mg PO Q6 9 Days Qty: 180 0RF Continued sertraline 50 mg tablet 50 mg PO DAILY alendronate 70 mg tablet 70 mg PO QWEEK Patient Comments: Take once a week on Saturdays. buspirone 7.5 mg tablet 7.5 mg PO DAILY hydromorphone 2 mg Tablet 2 - 4 mg PO Q4H PRN PRN (Reason: PAIN 6-10) 7 Days Qty: 42 0RF methocarbamol 750 mg Tablet 750 mg PO Q8 30 Days Qty: 90 0RF lidocaine 5 % Adhesive Patch,Medicated 2 patch topical DAILY 30 Days Qty: 60 0RF gabapentin 100 mg Capsule 100 mg PO QHS 30 Days Qty: 30 0RF ondansetron 4 mg Tablet,Disintegrating 4 mg PO Q8H PRN PRN (Reason: Nausea) 30 Days Qty: 90 0RF hydroxyzine pamoate 25 mg Capsule 50 mg PO TID PRN PRN (Reason: Itching) 30 Days Qty: 90 0RF Discontinued acetaminophen 500 mg Tablet 1,000 mg PO Q8 Qty: 0 0RF Referrals / Follow Up: Aubrey Lopez [facility], PHYSICAL DIRECTOR-C [Primary Care Provider] - Disposition Disposition (needs filled in before D/C Order can be placed): Home, Self Care Charges/Coding Visit Charges Inpatient E&M: 97236 Disch Hosp >30min
--- NOTE | 2024-11-08 11:36 | CASEMGMT ---
Social Work- SW met with pt, as pt was requesting to leave. Pt and friend were adamant that pt was leaving so that pt could return to her sanctuary and cry in bed at home. Pt was agitated and upset at recent information regarding cancer. SW offered active and empathetic listening and support. Pt reports that she has supports in family and friends and declined any additional mental health supports. SW provided rack card for [place]. Pt did report that transportation information would be welcomes, as a friend currently transports pt and she would like to have a back-up plan in the event that pt friend is not available. SW provided [employer] transportation list, along with printables for [employer] and [employer] transportation. Pt reports that she has [employer] and a meal kit delivery on other days. Pt reports no other needs at this time. INDY Martinez
== END 2024-11-08 11:35 | disposition home or self-care (01) | DRG 392 ==
LOC: ED 15:15 → MS3 15:35
PROVIDERS: Admitting Provider Internal Medicine; Emergency Provider Student in an Organized Health Care Education/Training Program; Visit Provider Hospitalist
DX: K52.9 Noninfective gastroenteritis and colitis, unspecified (principal); C78.7 Secondary malignant neoplasm of liver and intrahepatic bile duct; C18.2 Malignant neoplasm of ascending colon; Z68.1 Body mass index [BMI] 19.9 or less, adult; G40.409 Other generalized epilepsy and epileptic syndromes, not intractable, without status epilepticus; D64.9 Anemia, unspecified; E87.6 Hypokalemia; F32.A Depression, unspecified; F41.9 Anxiety disorder, unspecified; F12.90 Cannabis use, unspecified, uncomplicated; Z87.891 Personal history of nicotine dependence; R63.6 Underweight
CPT/HCPCS: 36415; 74177; 74183; 80053; 81001; 83605; 83690; 85025; 85610; 87493; 87506; 99284; A9575; Q9967; A4216; J2405

== ENCOUNTER 2024-11-20 21:44 | Emergency (ER) | payer MEDICARE, SELFPAY ==
[2024-11-20] VITALS (17 sets, daily range): BP systolic 71–120; BP diastolic 45–89; PULSE 83–164; RESP 12–29; TEMP 36.6; O2SAT 95–100; BMI 17.1
--- NOTE | 2024-11-20 21:54 | EKG12_ITS ---
Test Reason : STEMI Blood Pressure : */* mmHG Vent. Rate : 110 BPM Atrial Rate : 110 BPM P-R Int : 118 ms QRS Dur : 70 ms QT Int : 338 ms P-R-T Axes : 77 57 68 degrees QTcB Int : [address] elevation, consider early repolarization, pericarditis, or injury Nonspecific ST and T wave abnormality Abnormal ECG Confirmed by SIVAKUMAR ROBERTS ([id number]), editorial manager JAG SCHILLING ([id number]) on 11/21/2024 1:47:13 PM Referred By: TL Confirmed By: SIVAKUMAR ROBERTS
--- NOTE | 2024-11-20 22:01 | CON.PCM.CA_ITS ---
<Statement entered by Rachana Nichols MD - 11/21/24 11:56> Pt seen & evaluated w/ANTONIO. I personally interviewed & exam the pt. I was involved in all aspects of pt's orders, interpretation of results & treatment Assessment & Plan Assessment/Plan (1) GERD (gastroesophageal reflux disease): (2) Colon cancer: (3) Acute 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 with appendiceal abscess: (4) Severe malnutrition: (5) Depression: (6) Anxiety: (7) Seizure disorder: (8) Acute coronary syndrome: PLAN: 64-year-old patient brought into the ED by the EMS service as she had ongoing symptoms of chest pain this morning described as retrosternal And then at 9 PM she started to complain of similar chest pain and EMS evaluated the patient an EKG was performed and was given for aspirin 81 mg. Brought into the ED department here at the [facility] where I saw the patient along with the ED physician Dr. Kavin Langford Patient repeatedly admitted that she does not have any chest pain she has chest pain completely resolved she called at 0. We repeated an EKG which showed improvement from previous ST elevation. Bedside cardiac examination Chest exam clear auscultation bilateral Patient has been seen and followed by the oncologist. She had a history of appendiceal abscess History of colon cancer with metastasis to the liver and has been surgically treated with ileostomy. And she has been on chemotherapy recently and follow-up with oncologist. Cardiac care plan; Based on the clinical presentation patient will require further evaluation and treated as acute coronary syndrome. No indication for emergency cardiac catheterization as she is completely chest pain-free. Patient will be admitted to the intensive care unit and started on heparin. Low-dose nitroglycerin. As needed in addition to the rest of her cardiac medication which include atorvastatin and aspirin. Low-dose beta-luis as tolerated. Will evaluate by echocardiogram in the morning to assess LV function As well we will plan for further assessment by cardiac catheterization which can be set up in the morning. Rachana Nichols MD,[facility] fisher pot HPI Consult Data Date of Consult: 11/21/24 HPI Narrative Reason for Consultation: Acute coronary syndrome/with change in the EKG HPI Narrative: MICK KOCH, is a 64 F who presents [facility] Medical History Restless legs Cancer Hypotension Marijuana abuse Alcohol dependence ETOH abuse IBS (irritable bowel syndrome) Anxiety Depression Seizure Seizure disorder Home Medications ?Medication ?Instructions ?Recorded ?Last Taken ?Type alendronate 70 mg tablet 70 mg PO QWEEK Bone Health 0 10/18/23 Unknown History buspirone 7.5 mg tablet 7.5 mg PO DAILY Mood 4 09/04/24 08:50 History sertraline 50 mg tablet 50 mg PO DAILY Mood 10/18/23 09/04/24 08:50 History gabapentin 100 mg capsule 100 mg PO QHS 30 days #30 ca ps 09/12/24 Unknown Rx hydromorphone 2 mg tablet 2 - 4 mg (1 - 2 x 2 mg) PO Q 4H PRN 09/12/24 11/20/24 13:00 Rx PRN PAIN 6-10 7 days #42 tabs hydroxyzine pamoate 25 mg capsule 50 mg (2 x 25 mg) PO TID PRN PRN 09/12/24 Unknown Rx Itching 30 days #90 caps methocarbamol 750 mg tablet 750 mg PO Q8 30 days #90 t abs 09/12/24 Unknown Rx ondansetron 4 mg disintegrating 4 mg PO Q8H PRN PRN Na usea 30 days 09/12/24 Unknown Rx tablet #90 tabs Allergy/AdvReac Type Severity Reaction Status Date / Time erythromycin base Allergy TONGUE Verified 11/20/24 21:45 PEELS Family History Sister Melanoma Father Prostate CA Surgical History History of placement of ureteral stent History of resection of small bowel History of right salpingo-oophorectomy History of lysis of adhesions History of exploratory laparotomy 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 Social History household members: none housing: apartment Smoking Status: Former smoker alcohol intake: former year quit: 2020 substance use type: marijuana Physical Exam Cardio Cardio Narrative: Seen and evaluated in the ED chest pain resolved desk monitor showed normal sinus rhythm Cardiac exam is regular Chest exam is clear with discoloration bilateral Objective Data Vital Signs: Vital Signs Temp Pulse Resp BP Pulse Ox O2 Del Method 98 F 112 H 18 108/45 L 98 Room Air 11/20/24 21:45 11/20/24 21:45 11/20/24 21:45 11/20/24 21:45 11/20/24 21:45 11/20/24 21:45 Oxygen Delivery Method Room Air Weight: 96 lb 12.527 oz Body Mass Index (BMI) 17.1 Lab / Micro Data 11/20/24 21:50 11/20/24 21:50 Cardiology Labs/Tests Rhythm: EKG: ECHO: Stress Test: Cardiac Cath: PCI: CT Surgery: Holter monitor: EPS: PPM: CXR: Chest CT Scan: ESTEFANY Risk Score for UA/STEMI Assesmment (YES = 1) Risk Stratification Applicable: No
[2024-11-20 22:03] LABS: Hematocrit 37.7 % (37-47); Hemoglobin 12.4 g/dL (12.0-15.0); Immature Granulocytes Count 0.020 X10^3/uL (0.0-0.0); Mean Corp Hgb Conc 32.9 g/dL (32-36); Mean Corpuscular Volume 90.6 fL (81-99); Mean Platelet Vol. 9.1 fl (6.2-12.0); NRBC Flagged by Analyzer 0 % (0-5); Platelet Count 265 K/mm3 (150-450); RBC Distribution Width CV 14.4 % (11.6-14.6); RBC Distribution Width SD 47.6 fl (35.1-43.9); Red Blood Count 4.16 M/mm3 (4.2-5.4); White Blood Count 5.8 K/mm3 (4.4-11.0)
--- NOTE | 2024-11-20 22:35 | ED.VIS.CHEST ---
HPI History of Present Illness Chief Complaint: Chest Pain Informant: patient and EMS Narrative Narrative: Presents to the ED prehospital STEMI alert secondary to ST elevations inferior lateral leads on EKG. Called and patient with chest pain however does have history of being on chemotherapy for cancer. She was given aspirin by EMS. However on arrival patient is symptom-free. Interventional Dr. Nichols was present in the ED on her arrival. Patient with on and off chest pain starting at 9:30 AM. Symptoms lasted 30 minutes. States chest discomfort across her chest up to 8 out of 10. No dyspnea no nausea no radicular symptoms no diaphoresis. States symptoms came back at 1 PM and then again at 5 PM. Symptoms totally resolved this time. 9 PM symptoms again came back for which she called EMS. Denies any cardiac history. No history of heart cath. Remote tobacco for where she smoked and quit 1995. Patient diagnosed with colon cancer in January of last year. She had an appendectomy confirming cancer. She is followed by Dr. Poole. Patient was seen a couple weeks ago for abdominal pain admitted for colitis and had concerns for new metastatic lesions to her liver. She started new chemotherapy initiated yesterday morning and being infused currently. Currently symptom is 0. Prior Similar Symptoms: No CVD Risk Factors: Negative for Hypertension, Diabetes, Hypercholesterolemia, Family History 1' </=55 or Smoking PE Risk Factors: Positive for Cancer; Negative for Recent Travel/Surgery, Recent Immobilization, Prior DVT or PE or OCP + Smoking + >/=35 PFSH PFSH Medical History Restless legs Cancer Hypotension Marijuana abuse Alcohol dependence ETOH abuse IBS (irritable bowel syndrome) Anxiety Depression Seizure Seizure disorder Home Medications ?Medication ?Instructions ?Recorded ?Last Taken ?Type alendronate 70 mg tablet 70 mg PO QWEEK Bone Health 10/18/23 Unknown History buspirone 7.5 mg tablet 7.5 mg PO DAILY Mood 10/18/23 09/04/24 08:50 History sertraline 50 mg tablet 50 mg PO DAILY Mood 10/18/23 09/04/24 08:50 History gabapentin 100 mg capsule 100 mg PO QHS 30 days #30 caps 09/12/24 Unknown Rx hydromorphone 2 mg tablet 2 - 4 mg (1 - 2 x 2 mg) PO Q4H PRN 09/12/24 11/20/24 13:00 Rx PRN PAIN 6-10 7 days #42 tabs hydroxyzine pamoate 25 mg capsule 50 mg (2 x 25 mg) PO TID PRN PRN 09/12/24 Unknown Rx Itching 30 days #90 caps methocarbamol 750 mg tablet 750 mg PO Q8 30 days #90 tabs 09/12/24 Unknown Rx ondansetron 4 mg disintegrating 4 mg PO Q8H PRN PRN Nausea 30 days 09/12/24 Unknown Rx tablet #90 tabs Allergy/AdvReac Type Severity Reaction Status Date / Time erythromycin base Allergy TONGUE Verified 11/20/24 21:45 PEELS Family History Sister Melanoma Father Prostate CA Surgical History History of placement of ureteral stent History of resection of small bowel History of right salpingo-oophorectomy History of lysis of adhesions History of exploratory laparotomy 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 Social History household members: none housing: apartment Smoking Status: Former smoker alcohol intake: former year quit: 2020 substance use type: marijuana ROS ROS ED Constitutional Constitutional ED: Denies chills, fever(s) or sweats ENT ENT ED: Denies sore throat Cardiovascular Cardiovascular: Reports chest pain; Denies leg edema, palpitations or racing heartbeat Respiratory/Chest Respiratory/Chest: Denies cough, dyspnea or dyspnea on exertion Gastrointestinal Gastrointestinal: Denies abdominal pain, diarrhea, nausea or vomiting Genitourinary Genitourinary ED: Denies dysuria, hematuria or urinary frequency Musculoskeletal Musculoskeletal: Denies back pain, extremity pain or neck pain Integumentary Denies rash or wounds Neurologic Neurologic: Denies headache(s), paresthesias or weakness EXAM Physical Exam Const Vital Signs: 11/20/24 21:45 11/20/24 21:45 11/20/24 22:14 Temperature 98 F Temperature Source Oral Pulse Rate 112 H 92 Respiratory Rate 18 18 Respiratory Effort Normal Non-Labored Blood Pressure 108/45 L 94/58 L Blood Pressure Mean 66 70 Blood Pressure Source Blood Pressure Position Blood Pressure Location Pulse Ox 98 100 Oxygen Delivery Method Room Air Room Air Oxygen Flow Rate (L/min) 11/20/24 22:37 11/20/24 23:00 11/20/24 23:30 Temperature Temperature Source Pulse Rate 87 131 H Respiratory Rate 16 18 Respiratory Effort Blood Pressure 79/60 L 116/89 H Blood Pressure Mean 66 98 Blood Pressure Source Blood Pressure Position Blood Pressure Location Pulse Ox 98 100 100 Oxygen Delivery Method Room Air Room Air Room Air Oxygen Flow Rate (L/min) 11/21/24 00:00 11/21/24 00:06 11/21/24 00:19 Temperature Temperature Source Pulse Rate 87 64 103 H Respiratory Rate 18 16 Respiratory Effort Blood Pressure 79/49 L 66/54 L 72/57 L Blood Pressure Mean 59 58 62 Blood Pressure Source Monitor Blood Pressure Position Semi-Fowlers Blood Pressure Location Right Arm Pulse Ox 100 100 Oxygen Delivery Method Non-Rebreather Oxygen Flow Rate (L/min) 15 11/21/24 00:25 11/21/24 00:30 11/21/24 00:35 Temperature Temperature Source Pulse Rate 109 H 110 H 107 H Respiratory Rate 18 Respiratory Effort Blood Pressure 84/63 L 81/55 L 91/62 Blood Pressure Mean 70 63 71 Blood Pressure Source Blood Pressure Position Blood Pressure Location Pulse Ox 100 100 Oxygen Delivery Method Non-Rebreather Non-Rebreather Oxygen Flow Rate (L/min) 15 11/21/24 00:55 11/21/24 00:58 11/21/24 01:00 Temperature Temperature Source Pulse Rate 101 H 110 H Respiratory Rate 18 Respiratory Effort Blood Pressure 85/60 L 93/60 Blood Pressure Mean 68 71 Blood Pressure Source Blood Pressure Position Blood Pressure Location Pulse Ox 98 97 Oxygen Delivery Method Non-Rebreather Room Air Oxygen Flow Rate (L/min) 15 11/21/24 01:12 11/21/24 01:30 Temperature 98 F Temperature Source Pulse Rate 105 H 110 H Respiratory Rate 18 18 Respiratory Effort Blood Pressure 93/60 95/69 Blood Pressure Mean 71 77 Blood Pressure Source Blood Pressure Position Blood Pressure Location Pulse Ox 98 100 Oxygen Delivery Method Non-Rebreather Oxygen Flow Rate (L/min) 15 Positive well nourished and well developed General Appearance ED: well developed and NAD HEENT Reports moist mucous membranes normocephalic and atraumatic Eyes General Eye ED: Yes normal appearance of both eyes Neck full ROM Chest Wall Chest Narrative: Right upper chest wall Mediport with medications being infused currently. Chest: Negative for tenderness Resp normal respiratory effort and normal air movement Effort and Inspection: symmetric chest movement; Negative for respiratory distress Cardio regular rhythm and no murmurs Rate: tachycardic Peripheral Pulses: pulses 2+ throughout GI normal to inspection, nondistended, normoactive bowel sounds and non-tender Palpation: Negative for guarding or rebound tenderness present Extremity normal to inspection General Extremety ED: Negative for edema or tenderness General Extremity: Negative for edema Neuro oriented x3 and no sensory deficits noted Sensorium / Orientation: awake and alert Skin no rashes or lesions noted and no wounds MDM MDM MDM Narrative Medical decision making narrative: Interventions / MDM: Differential diagnosis: Acute coronary syndrome, V-fib arrest, cardiogenic shock, NSTEMI Diagnosis considered but do not suspect: Pulmonary embolism however CTA negative. My EKG interpretation: Sinus rate of 110, ST elevation lateral leads no depressions. T wave versions in V1 V2. Imaging independently reviewed and interpreted by myself: N/A External documents reviewed: N/A Test considered but not ordered:N/A ED course: Patient EKG performed bedside with cardiology. There is some noted ST elevations in lateral leads there is no depressions. She is currently symptom-free. With no active symptoms, Dr. Nichols did not feel cath is necessary at this time. Recommended cardiac workup. treatment for ACS. She was given aspirin by EMS will start heparin drip. Will keep her n.p.o. If any worsening symptoms he will be recontacted for cardiac cath sooner otherwise plan for echocardiogram in the morning and heart cath after that. STEMI team was called off. This atypical pain just across her chest no other radicular symptom with cancer history she was tachycardic. I sent her over for CT angiogram to rule out PE. 2330: Nursing reported to me patient's pain returning I reevaluated her she states back up to the 8. Heart rate 130s. She has a transient hypotension 79 responding to fluids currently 112 in the room. Her troponin did return at 91. I interpreted and reviewed the CT angiogram myself I did not appreciate any PE. Will await final read. Will repeat EKG as her pain is returning. IV fentanyl ordered. Repeat EKG with concerning changes more broadening T waves anterior leads elevation lateral leads worsened than last EKG. I sent imaging to Dr. Nichols agrees with concerning changes he is coming into perform a heart cath. Cath Team was contacted. I was called back to the room heart rate 190s patient went into V-fib arrest noted on the monitor. Compressions started. Cardioversion 200 J initiated CPR continued. She was given 300 mg amiodarone IV. Additional epinephrine was given. On pulse check persistent V-fib additional cardioversion performed was given 150 mg IV amiodarone. Next pulse check, patient had organized rhythm she had a pulse. She was responding therefore held off on intubation. Continued airway support per respiratory. On the monitor transient A-fib blood pressure dropping in the 70s systolic. With concerns for cardiogenic shock I ordered for dopamine drip. 0005: Boxing And Pressing Supervisor Dr. Nichols is in the department evaluating the patient. Brilinta 180 mg recommended and ordered. Heparin drip is running at this time. 0030: I did perform bedside ultrasound reviewed with edger hand, concerns for apical hypokinesis. Currently on dopamine drip pressure 84 systolic. He reports with no equipment for cardiogenic support at this facility, he recommended trying to transfer patient to higher level of center. He states with intervention and hypotension, patient can decompensate here in the hospital. Transfer process is initiated. CTA chest returned negative for any PE. There are some clinical rib fractures left upper chest from CPR . No respiratory distress. 0040: Interventional cardiac Dr. Nichols did speak with [facility] Transfer with interventialist there Dr. Niño, discussed patient's history concerns. Patient accepted to their facility. Arranging [facility] at this time. Heparin drip running, dobutamine drip running. Amio drip running. Awaiting transport. Delta troponin even after chest compressions and cardioversion decreased to 82. Re-evaluation: Critical Disposition discussed with patient/family/significant other: Patient Case discussed with consulting clinician: Interventional cardiology, hospitalist, [facility] Transfer with cardiology This note was generated with TEVIZZ dictation software. It may contain incorrect words, spelling, and punctuation that were not noted in checking the note before signing. Lab Data Attestation: I reviewed the patient's lab results. Labs: Laboratory Results - last 24 hr 11/20/24 11/20/24 11/21/24 21:50 23:09 00:49 WBC 5.8 RBC 4.16 L Hgb 12.4 Hct 37.7 MCV 90.6 MCH 29.8 MCHC 32.9 RDW Std Deviation 47.6 H RDW Coeff of Yury 14.4 Plt Count 265 MPV 9.1 Immature Gran % (Auto) 0.300 Neut % (Auto) 60.3 Lymph % (Auto) 30.9 [place] % (Auto) 5.7 Eos % (Auto) 1.9 Baso % (Auto) 0.9 Absolute Neuts (auto) 3.5 Absolute Lymphs (auto) 1.78 Nucleated RBC % 0 PT 12.4 INR 0.9 APTT 22.2 L Sodium 140 Potassium 3.0 L Chloride 100 Carbon Dioxide 19.7 L Anion Gap 20 H BUN 32 H Creatinine 1.06 Estim Creat Clear Calc 36.67 L Est GFR (MDRD) Non-Af 58 L BUN/Creatinine Ratio 30.1 H Glucose 162 H Calcium 9.5 Troponin T High Sens 91 H* Troponin T Hi Sens 2 Hr 82 H* Radiography Diagnostic Testing: Clinical Impression(s) from Imaging Studies Chest X-Ray 11/20/24 22:40 IMPRESSION: No acute cardiopulmonary abnormality. Reading Location: [facility] Chest CTA 11/20/24 23:10 IMPRESSION: No evidence of pulmonary embolism or aortic dissection. Right upper lobe nodule. Follow-up in [address] scan would be helpful for further evaluation. Reading Location: [place] [address] Critical Care Time Critical Care Time: Yes Critical care time (excluding procedures): 30-74 minutes, Discussing w/Patient &/or Family/Drupal Php Developer, Discussing w/Consultants, Arranging Admission or Transfer, Performing Direct Patient Care at Bedside and - (60 minutes) Discharge Plan Triage Chief Complaint: Chest Pain ED Provider: Kavin Langford Dx/Rx/DC Orders Clinical Impression: ACS (acute coronary syndrome), Cardiac arrest with ventricular fibrillation, Chest pain, Metastatic colon cancer to liver, Closed rib fracture, Cardiogenic shock Prescriptions: No Action sertraline 50 mg tablet 50 mg PO DAILY alendronate 70 mg tablet 70 mg PO QWEEK Patient Comments: Take once a week on Saturdays. buspirone 7.5 mg tablet 7.5 mg PO DAILY hydromorphone 2 mg Tablet 2 - 4 mg PO Q4H PRN PRN (Reason: PAIN 6-10) 7 Days Qty: 42 0RF methocarbamol 750 mg Tablet 750 mg PO Q8 30 Days Qty: 90 0RF gabapentin 100 mg Capsule 100 mg PO QHS 30 Days Qty: 30 0RF ondansetron 4 mg Tablet,Disintegrating 4 mg PO Q8H PRN PRN (Reason: Nausea) 30 Days Qty: 90 0RF hydroxyzine pamoate 25 mg Capsule 50 mg PO TID PRN PRN (Reason: Itching) 30 Days Qty: 90 0RF Primary Care Provider: Aubrey Lopez Referrals: Aubrey Lopez, PERFORMANCE MANAGER-C [Primary Care Provider] - Print Language: Comoran Disposition Disposition: DC/Tx to Another Type of HCF
--- NOTE | 2024-11-20 22:40 | RAD_ITS ---
PROCEDURE: CHEST 1 VIEW (PORTABLE) 11/20/2024 REASON FOR EXAM: CHEST PAIN TECHNIQUE: Frontal view of the chest. COMPARISON: 08/31/2023. FINDINGS: The heart is normal in size. The lungs are clear. The lungs are clear. Right chest infusion port. Left shoulder arthroplasty. RAD/Chest 1 View (Portable) IMPRESSION: No acute cardiopulmonary abnormality. Reading Location: [id number]
[2024-11-20 23:02] LABS: Anion Gap 20 (5-15); BUN 32 mg/dL (4-19); BUN/Creat Ratio 30.1 RATIO (10-20); Calcium,Total 9.5 mg/dL (7.6-11.0); Carbon Dioxide 19.7 mmol/L (21.0-32.0); Chloride 100 mmol/L (98-108); Estimated Creatinine Clearance 36.67 ml/min (50-250); Glucose 162 mg/dL (70-99); Potassium 3.0 mmol/L (3.3-5.1); Troponin T High Sensitivity 91 ng/L (<=14)
--- NOTE | 2024-11-20 23:10 | CT_ITS ---
PROCEDURE: CTA CHEST W/WO CONTRAST 11/20/2024 REASON FOR EXAM: CHEST PAIN TECHNIQUE: CTA CHEST W/WO CONTRAST Multiplanar Sagittal and Coronal images were obtained. CONTRAST: 100 mL of Isovue-370 One or more dose reduction techniques were used (e.g., Automated exposure control, adjustment of the mA and/or kV according to patient size, use of iterative reconstruction technique). RADIATION DOSE SUMMARY: CTDlvol: 8.99 mGy DLP: 124.82 mGycm COMPARISON: None at the time of dictation. FINDINGS: Normal enhancement of the main pulmonary artery and right and left pulmonary arteries. Normal enhancement of the bilateral peripheral pulmonary arteries. There is no demonstrated pulmonary embolism. Normal thoracic aorta and visualized great vessels. There is no demonstrated aortic dissection. Normal heart and pericardium. The coronary arteries are calcified. Normal mediastinum. Normal hilar regions. Normal visualized trachea and bronchi. The lungs are well expanded. 8.4 mm nodule is seen in the right upper lobe. Normal pleura. Normal chest wall structures. The patient is status post total left shoulder joint replacement. Normal visualized upper abdomen. Cortical scarring is seen in the right upper renal pole. CT/CTA Chest W/WO Contrast IMPRESSION: No evidence of pulmonary embolism or aortic dissection. Right upper lobe nodule. Follow-up in [address] scan would be hel pful for further evaluation. Reading Location: [place] [id number]
--- NOTE | 2024-11-20 23:12 | ED.RN ---
This RN and multiple other RNs at bedside attempting to draw the patient's blood and obtain IV access. However, unable to obtain adequate IV access nor appropriate blood work d/t labs being hemolyzed. Per Dr. Langford, DO it is okay to stop the patient's chemotherapy pump in order to obtain blood work and have IV access for appropriate medications and CTA scan. Chemotherapy pump discontinued at this time.
--- NOTE | 2024-11-20 23:16 | ED.RN ---
notified of critical troponin
[2024-11-20] MEDS: 0.9% Normal Saline (500mL Bag) 500 ML 999 ML IV (23:18)
[2024-11-20] MEDS: HEPARIN/D5w 25,000 UNITS 25,000 UNITS/250 ML IV.SOLN. 5.3 UNITS CONT INF (23:25)
[2024-11-20] MEDS: Heparin Injection (Vial) 5,000 UNIT/ML VIAL 2500 UNIT IV (23:27)
[2024-11-20 23:33] LABS: Partial Thromboplast Time 22.2 Seconds (24.1-36.2); Prothrombin Time (Protime)PT. 12.4 SECONDS (11.7-14.9)
[2024-11-20] MEDS: fentaNYL 100 MCG/2 ML Ampul 50 MCG IV (23:36)
--- NOTE | 2024-11-20 23:41 | EKG12_ITS ---
Test Reason : CP Blood Pressure : */* mmHG Vent. Rate : 141 BPM Atrial Rate : 141 BPM P-R Int : 116 ms QRS Dur : 62 ms QT Int : 260 ms P-R-T Axes : 82 22 59 degrees QTcB Int : 398 ms Critical Test Result: High HR Sinus tachycardia Low voltage QRS Acute pericarditis Abnormal ECG Confirmed by SIVAKUMAR ROBERTS ([id number]), market editor JAG SCHILLING ([id number]) on 11/21/2024 1:46:45 PM Referred By: BRYAN Confirmed By: SIVAKUMAR ROBERTS
--- NOTE | 2024-11-20 23:49 | ED.RN ---
THIS RN AT BEDSIDE, THE PATIENT COMPLAINING OF WORSENING CHEST PAIN AND NAUSEA. PATIENT'S HEART RATE REACHED A RATE OF 190 AND WENT INTO F-VIB. THIS RN YELLED FOR HELP, AT BEDSIDE, COMPRESSIONS STARTED AND FIRST SHOCK DELIVERED AT 2349. CODE BLUE INITIATED.
[2024-11-21] VITALS (29 sets, daily range): BP systolic 63–98; BP diastolic 49–71; PULSE 63–116; RESP 13–24; TEMP 36.6; O2SAT 97–100
--- NOTE | 2024-11-21 | HP.PCM.HOS_ITS ---
[facility] - General General Date of Admission: 11/21/24 Date of Service: 11/21/24 Chief Complaint: Chest Pain with suspected STEMI followed by V-Fib Arrest. HPI Narrative MICK KOCH, is a 64 F with a past medical history of seizure disorder, depression with anxiety; on buspirone and sertraline, neuropathy; on gabapentin, RLS, IBS, history of severe malnutrition, former tobacco abuse; quit ~1995, former EtOH abuse; quit ~2020, history of cannabis abuse, osteoporosis; on alendronate weekly, history of lysis of adhesions and recently diagnosed colon cancer in January of last year, history of 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 with appendiceal abscess; s/p appendectomy confirming cancer with subsequent metastases to liver; s/p ileostomy plus Right hemicolectomy and on chemotherapy followed by Dr. Poole and recent admission here from November 07, 2024 to November 08, 2024 for treatment of colitis after presenting with abdominal pain and diarrhea with Leukocytosis of ~19K and CT scan of abdomen and pelvis revealing findings suggestive of colitis of the transverse and descending colon (is status post right hemicolectomy as noted) with Clostridium difficile toxin negative but antigen positive with patient subsequently started on oral vancomycin with cessation of diarrhea with patient then discharged to complete 10 day course of vancomycin who presents to [facility] ER complaining of chest pain. Ms. Koch is currently intubated after CODE BLUE and V-fib arrest so information was gathered from chart, medical staff at computer. According to the records patient originally informed the ER physician that she had been having chest pain that began on the morning of November 20, 2024 which she described as retrosternal and radiating across her chest. Then at 9 PM she began to have similar chest pain so she activated EMS with EKG performed that was suspicious for acute anterior STEMI for which she was treated with aspirin by EMS followed by nitroglycerin and IV heparin with transient resolution of her chest pain and improvement of her previous STEMI changes on EKG. Unfortunately, patient had a return of her chest pain followed by V-fib arrest with CODE BLUE called in ER with patient then given IV epinephrine followed by IV amiodarone and then rushed for emergent LHC. In the ER her laboratory studies revealed evidence of elevated troponin T of 91 ng/L present on admission complicated by hypokalemia of 3 mmol/L present on admission compounded by suspected dehydration; with elevated BUN/creatinine ratio of 30.1 present on admission. She was treated earlier in the evening with oral potassium chloride in addition to a bolus of 500 mL of normal saline followed by IV heparin and 1 dose of IV fentanyl. Patient is suspected to have sustained multiple rib fractures during her CODE BLUE with profound hypotension of 66/54 mmHg noted at 00:06 hours. She was then arranged for emergent transfer to tertiary care center by cardiology. [facility] Medical History Restless legs Cancer Hypotension Marijuana abuse Alcohol dependence ETOH abuse IBS (irritable bowel syndrome) Anxiety Depression Seizure Seizure disorder Home Medications ?Medication ?Instructions ?Recorded ?Last Taken ?Type alendronate 70 mg tablet 70 mg PO QWEEK Bone Health 0 10/18/23 Unknown History buspirone 7.5 mg tablet 7.5 mg PO DAILY Mood 4 09/04/24 08:50 History sertraline 50 mg tablet 50 mg PO DAILY Mood 10/18/23 09/04/24 08:50 History gabapentin 100 mg capsule 100 mg PO QHS 30 days #30 ca ps 09/12/24 Unknown Rx hydromorphone 2 mg tablet 2 - 4 mg (1 - 2 x 2 mg) PO Q 4H PRN 09/12/24 11/20/24 13:00 Rx PRN PAIN 6-10 7 days #42 tabs hydroxyzine pamoate 25 mg capsule 50 mg (2 x 25 mg) PO TID PRN PRN 09/12/24 Unknown Rx Itching 30 days #90 caps methocarbamol 750 mg tablet 750 mg PO Q8 30 days #90 t abs 09/12/24 Unknown Rx ondansetron 4 mg disintegrating 4 mg PO Q8H PRN PRN Na usea 30 days 09/12/24 Unknown Rx tablet #90 tabs Allergy/AdvReac Type Severity Reaction Status Date / Time erythromycin base Allergy TONGUE Verified 11/20/24 21:45 HALIMA Family History Sister Melanoma Father Prostate CA Surgical History History of placement of ureteral stent History of resection of small bowel History of right salpingo-oophorectomy History of lysis of adhesions History of exploratory laparotomy 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 Social History household members: none housing: apartment Smoking Status: Former smoker alcohol intake: former year quit: 2020 substance use type: marijuana ROS ROS Narrative For review of systems was not possible due to patient being intubated after CODE BLUE for V-fib arrest. Vital Signs Vital Signs Vital Signs: 11/20/24 21:45 11/20/24 21:45 11/20/24 22:14 Temperature 98 F Temperature Source Oral Pulse Rate 112 H 92 Respiratory Rate 18 18 Respiratory Effort Normal Non-Labored Blood Pressure 108/45 L 94/58 L Blood Pressure Mean 66 70 Pulse Ox 98 100 Oxygen Delivery Method Room Air Room Air 11/20/24 22:37 11/20/24 23:00 11/20/24 23:30 Temperature Temperature Source Pulse Rate 87 131 H Respiratory Rate 16 18 Respiratory Effort Blood Pressure 79/60 L 116/89 H Blood Pressure Mean 66 98 Pulse Ox 98 100 100 Oxygen Delivery Method Room Air Room Air Room Air Weight Weight: 96 lb 12.527 oz Body Mass Index (BMI) 17.1 Physical Exam Const Constitutional Narrative: Patient is intubated on ventilator after CODE BLUE. HEENT normocephalic and head/scalp atraumatic Eyes PERRL, EOMs intact bilaterally and conjunctivae normal Neck no lymphadenopathy and supple Resp normal respiratory effort, no retractions, no use of accessory muscles and clear to auscultation bilaterally Cardio regular rate and regular rhythm Cardio Narrative: Patient has Mediport in Right upper chest with medications being infused currently GI normal to inspection, nondistended, normoactive bowel sounds, soft to palpation, non-tender and non-distended Extremity normal to inspection, full ROM and no clubbing, cyanosis or edema Skin Skin Narrative: Patient has no evidence of rash, abscess, wounds or jaundice. Neuro Neuro Narrative: Patient is intubated on mechanical ventilator after V-fib arrest. Results Medical Records Data Attestation: I reviewed the patient's medical records Lab / Micro Data Attestation: I reviewed the patient's lab results. 11/20/24 21:50 11/20/24 21:50 Labs: Laboratory Results - last 24 hr 11/20/24 21:50: WBC 5.8, RBC 4.16 L, Hgb 12.4, Hct 37.7, MCV 90.6, MCH 29.8, MCHC 32.9, RDW Std Deviation 47.6 H, RDW Coeff of Yury 14.4, Plt Count 265, MPV 9.1, Immature Gran % (Auto) 0.300, Neut % (Auto) 60.3, Lymph % (Auto) 30.9, [place] % (Auto) 5.7, Eos % (Auto) 1.9, Baso % (Auto) 0.9, Absolute Neuts (auto) 3.5, Absolute Lymphs (auto) 1.78, Nucleated RBC % 0, Sodium 140, Potassium 3.0 L, Chloride 100, Carbon Dioxide 19.7 L, Anion Gap 20 H, BUN 32 H, Creatinine 1.06, Estim Creat Clear Calc 36.67 L, Est GFR (MDRD) Non-Af 58 L, BUN/Creatinine Ratio 30.1 H, Glucose 162 H, Calcium 9.5, Troponin T High Sens 91 H* 11/20/24 23:09: PT 12.4, INR 0.9, APTT 22.2 L Imaging Radiology Impression Chest X-Ray 11/20/24 22:40 IMPRESSION: No acute cardiopulmonary abnormality. Reading Location: [id number] Assessment & Plan Assessment/Plan (1) STEMI (ST elevation myocardial infarction): QUALIFIERS: Involved coronary artery: LAD coronary artery Q ualified Code(s): I21.02 - ST elevation (STEMI) myocardial infarction involving left anterior descending coronary artery (2) Cardiac arrest with ventricular fibrillation: (3) Colon cancer: QUALIFIERS: Colon location: unspecified part of colon Qualified Code(s): C18.9 - Malignant neoplasm of colon, unspecified (4) Acute 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 with appendiceal abscess: (5) Hypokalemia: (6) Dehydration: (7) History of Clostridioides difficile colitis: PLAN: Plan 1. Acute Anterior STEMI likely due to LAD lesion followed by JESSICA SILVA with V- fib Arrest - Proceed with planned transfer to tertiary care center. Cardiology help appreciated. 2. Recently diagnosed colon cancer in January of last year, history of 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 with appendiceal abscess; s/p appendectomy confirming cancer with subsequent metastases to liver; s/p ileostomy plus Right hemicolectomy and on chemotherapy followed by Dr. Poole complicating #1 - This complicates her case and will likely negatively impact her prognosis. 3. Hypokalemia of 3 mmol/L present on admission compounding #1 & #2 - Patient previously given oral KCl with plan for maintenance IVF with supplemental KCl. Recheck level in AM to confirm repletion. 4. Dehydration; with elevated BUN/creatinine ratio of 30.1 present on admission adding to the medical complexity of #1 - #3 - Volume resuscitate and serialize renal indices daily to follow trend. 5. Recent admission here from November 07, 2024 to November 08, 2024 for treatment of colitis after presenting with abdominal pain and diarrhea with Leukocytosis of ~19K and CT scan of abdomen and pelvis revealing findings suggestive of colitis of the transverse and descending colon (is status post right hemicolectomy as noted) with Clostridium difficile toxin negative but antigen positive with patient subsequently started on oral vancomycin with cessation of diarrhea with patient then discharged to complete 10 day course of vancomycin adding to the burden of disease outlined from #1 - #5 - Noted with patient having completed her course of treatment with no complaints of diarrhea this admission. 6. Seizure disorder; currently not on treatment - Give IV lorazepam for breakthrough seizure activity. 7. Depression with anxiety; on buspirone and sertraline - We will hold these agents until such time patient clinically improves. 8. Neuropathy; on gabapentin - Restart this agent when patient can tolerate. 9. RLS - Stable. 10. IBS - Noted. 11. History of severe malnutrition - Noted. 12. Former tobacco abuse; quit ~1995 - Noted. 13. Former EtOH abuse; quit ~2020 - Noted. 14. History of cannabis abuse - Noted. 15. Osteoporosis; on alendronate weekly - Restart this agent as outpatient if patient is able to survive this admission. 16. History of lysis of adhesions - Noted. 17. DVT/GI prophylaxis - Patient on IV heparin for #1. Pantoprazole 40 mg IV daily. Total time: Approximately (but not less than) 75 minutes. Charges/Coding Visit Charges Inpatient E&M: 62631 Init Hosp L3
[2024-11-21] MEDS: DOPamine IV 800 MG/250 ML IV.SOLN. CONT INF (00:06)
[2024-11-21] MEDS: TICAGRELOR 90 MG TABLET 180 MG PO (00:21)
[2024-11-21] MEDS: Amiodarone 360 MG in Dextrose 5% Viaflo Bag 192.8 ML 33.3 MG CONT INF (00:58)
[2024-11-21 01:26] LABS: Troponin T High Sens 2 HR 82 ng/L (<=14)
--- NOTE | 2024-11-21 01:43 | ED.RN ---
[facility] AT BEDSIDE AND HAS ASSUMED CARE AT THIS TIME.
== END 2024-11-21 02:00 | disposition other institution (70) ==
PROVIDERS: Emergency Provider Emergency Medicine; Visit Provider Emergency Medicine
DX: I46.9 Cardiac arrest, cause unspecified (principal); C78.7 Secondary malignant neoplasm of liver and intrahepatic bile duct; R57.0 Cardiogenic shock; I49.01 Ventricular fibrillation; C18.9 Malignant neoplasm of colon, unspecified; G40.909 Epilepsy, unspecified, not intractable, without status epilepticus; I24.9 Acute ischemic heart disease, unspecified; F41.9 Anxiety disorder, unspecified; Z95.828 Presence of other vascular implants and grafts; Z87.891 Personal history of nicotine dependence; Z92.21 Personal history of antineoplastic chemotherapy; Z90.49 Acquired absence of other specified parts of digestive tract; F32.A Depression, unspecified; Z79.899 Other long term (current) drug therapy; Z90.721 Acquired absence of ovaries, unilateral; Z96.619 Presence of unspecified artificial shoulder joint; M96.A3 Multiple fractures of ribs associated with chest compression and cardiopulmonary resuscitation; Y92.238 Other place in hospital as the place of occurrence of the external cause
CPT/HCPCS: 36591; 71045; 71275; 80048; 84484; 85025; 85610; 85730; 92950; 93005; 96365; 96366; 96367; 96375; 96376; 99285; Q9967; A4216; J2405

== ENCOUNTER 2024-11-25 16:20 | Emergency (ER) | payer MEDICARE, SELFPAY ==
[2024-11-25 16:21] VITALS: BP 99/79; PULSE 114; RESP 16; TEMP 37.1; O2SAT 97
--- NOTE | 2024-11-25 16:45 | EDS_ITS ---
HPI HPI - GI History of Present Illness Chief Complaint: Nausea/Vomiting Informant: patient and spouse/S.O. Nausea/Vomiting/Emesis GI Symptom: Positive for Nausea; Negative for Vomiting Onset: Today Severity: Mild Diarrhea/Melena/Hematochezia GI Symptom: Negative for Diarrhea, Melena or Hematochezia Associated Symptoms Associated Symptoms: Negative for Dysuria, Frequency, Hematuria or Urgency Narrative Narrative: 64-year-old female history of colon cancer with recurrence she has had surgery for that partial colon resection and appendectomy. Still has her gallbladder. Currently she is diagnosed with stage IV colon cancer with mets to the liver and she is on chemotherapy. Recently she was hospitalized and during I believe the emergency department evaluation she coded and was transferred for [facility] There she was stable and was hospitalized for several days just discharged they believe this past Monday. Says she feels dehydrated. She is able to drink normal things down. She has nausea but no vomiting. No diarrhea or constipation no dysuria or fever she denies any abdominal pain. I think she was just concerned and came in today due to if she was taken she was getting dehydrated. She is currently undergoing chemotherapy with Dr. Poole from the [facility]. Prior similar symptoms: Yes Recent Illness/Hospitalization: Yes [facility] Medical History Restless legs Cancer Hypotension Marijuana abuse Alcohol dependence ETOH abuse IBS (irritable bowel syndrome) Anxiety Depression Seizure Seizure disorder Home Medications ?Medication ?Instructions ?Recorded ?Last Taken ?Type alendronate 70 mg tablet 70 mg PO QWEEK Bone Health 0 10/18/23 Unknown History buspirone 7.5 mg tablet 7.5 mg PO DAILY Mood 4 09/04/24 08:50 History sertraline 50 mg tablet 50 mg PO DAILY Mood 10/18/23 09/04/24 08:50 History gabapentin 100 mg capsule 100 mg PO QHS 30 days #30 ca ps 09/12/24 Unknown Rx hydromorphone 2 mg tablet 2 - 4 mg (1 - 2 x 2 mg) PO Q 4H PRN 09/12/24 11/20/24 13:00 Rx PRN PAIN 6-10 7 days #42 tabs hydroxyzine pamoate 25 mg capsule 50 mg (2 x 25 mg) PO TID PRN PRN 09/12/24 Unknown Rx Itching 30 days #90 caps methocarbamol 750 mg tablet 750 mg PO Q8 30 days #90 t abs 09/12/24 Unknown Rx ondansetron 4 mg disintegrating 4 mg PO Q8H PRN PRN Na usea 30 days 09/12/24 Unknown Rx tablet #90 tabs lorazepam 0.5 mg tablet (Ativan) 0.5 mg PO BID PRN anx iety 7 days 11/25/24 Unknown Rx #10 tabs Allergy/AdvReac Type Severity Reaction Status Date / Time erythromycin base Allergy TONGUE Verified 11/25/24 16:21 HALIMA Family History Sister Melanoma Father Prostate CA Surgical History History of placement of ureteral stent History of resection of small bowel History of right salpingo-oophorectomy History of lysis of adhesions History of exploratory laparotomy 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 Social History household members: none housing: apartment Smoking Status: Former smoker alcohol intake: former year quit: 2020 substance use type: marijuana ROS ROS ED ROS Narrative Nausea. Denies abdominal pain. Denies vomiting or diarrhea. Denies fever or dysuria. Constitutional Constitutional ED: Denies chills or fever(s) ENT ENT ED: Denies ear pain Cardiovascular Cardiovascular: Denies chest pain or palpitations Respiratory/Chest Respiratory/Chest: Denies cough or dyspnea Gastrointestinal Gastrointestinal: Reports nausea; Denies abdominal pain, constipation, diarrhea, melena or vomiting Genitourinary Genitourinary ED: Denies dysuria or hematuria Musculoskeletal Musculoskeletal: Denies arthralgias or back pain Integumentary Denies abscess Neurologic Neurologic: Denies headache(s) Psychiatric Psychiatric: Denies anxiety or depression Endocrine Endocrinology: Denies polydipsia or polyphagia Hematologic/Lymphatic Hematologic/Lymphatic: Denies easy bleeding, easy bruising or lymphadenopathy Allergic/Immunologic Allergic/Immunologic ED: Denies mouth swelling, tongue swelling or urticaria EXAM Physical Exam Narrative Exam Narrative: 64-year-old female sitting upright in bed. Vital signs are stable blood pressure 99/79 but she is a small woman weighs around 100 pounds. She does not look septic or toxic. is at bedside. She is in no distress she is emotionally upset at times tearful talking about her history of the recurrent colon cancer with liver mets. H EENT exam pupils round reactive light. Moist mutes membranes. Neck nontender no JVD. Lungs clear to auscultation bilaterally. Heart regular rhythm rate about 110 no murmur. Chest wall mild tenderness. She recently had CPR and may have fractured ribs. But there is no subcu air or crepitance. Abdomen soft, nontender, nondistended normal bowel sounds. No peritoneal signs. No obstruction or distention. Moving all 4 e xtremities. Nontender no edema. Normal range of motion. Back nontender. Neurologically she is awake alert. Answering questions following commands. Const Vital Signs: 11/25/24 16:21 11/25/24 19:12 Temperature 98.8 F 98.4 F Temperature Source Oral Pulse Rate 114 H 74 Respiratory Rate 16 16 Blood Pressure 99/79 118/66 Blood Pressure Mean 85 83 Pulse Ox 97 99 Oxygen Delivery Method Room Air Positive well nourished and well developed; Negative for obese, cachectic, co ntractures or unkempt General Appearance ED: well developed and NAD; Negative for unkempt, cachectic, contractures or pallor Nutritional Appearance: Negative for cachectic or obese HEENT Reports moist mucous membranes normocephalic and atraumatic Eyes PERRL and EOMs intact bilaterally General Eye ED: Negative for pale conjunctiva or scleral icterus Neck no lymphadenopathy, supple and no JVD General: Negative for tenderness Resp normal respiratory effort and clear to auscultation bilaterally Effort and Inspection: Negative for respiratory distress Auscultation: Negative for rales, rhonchi, wheezes or diminished lung sounds Cardio regular rhythm, S1 normal heart sound, S2 normal heart sound and no murmurs; Negative for regular rate Rate: tachycardic GI non-tender and non-distended Auscultation: normoactive bowel sounds Palpation: soft; Negative for tender, guarding, hepatomegaly, splenomegaly, hernia, mass, pulsatile mass or rebound tenderness present Back/Spine no CVA tenderness General Back: Negative for CVA tenderness Cervical Spine: Negative for cervical spine tenderness Thoracic Spine / Upper Back: Negative for thoracic spinal tenderness Lumbar Spine / Lower Back: Negative for lumbar spinal tenderness Extremity full ROM General Extremety ED: Negative for edema or tenderness General Extremity: Negative for edema Neuro CN's II-XII intact bilaterally and moves all extremities Sensorium / Orientation: alert, oriented to person, oriented to place and oriented to time Motor Exam: strength 5/5 throughout Psych mental status grossly normal and thought process normal Appearance: Negative for unkempt Skin no wounds General Skin Exam: Negative for jaundice or pallor Lesions: no lesions Rashes: no rashes MDM MDM MDM Narrative Medical decision making narrative: 64-year-old female concerned she may be dehydrated will be treated with IV fluids. Screening labs will be obtained. She is having no abdominal pain there is no signs of obstruction either I do not think she needs imaging at this time. Currently she is not nauseated will not be given Zofran. Repeat exam patient is doing well at 7 PM. A lengthy discussion with both her, her and I believe 2 sisters on the phone that are out of town. All are comfortable with her being discharged to home. Medically she stable. She is having emotional problems and depression after her cancer diagnoses. I will have our sr. social media & mobile manager follow-up with the family tomorrow. She may have family coming from out of town. She and her are comfortable being discharged to home. She does not need inpatient psychiatric admission. She is not suicidal. History & Record Review Discussion w/independent historian: Patient and Family Additional record(s) reviewed:: Prior inpatient record, Prior outpatient record, Prior ED visit and Prior labs Lab Data Attestation: I reviewed the patient's lab results. Lab results narrative: CBC shows a white count of 4 H&H 9.7 and 20.4. Platelets 220. Electrolytes show a sodium 134 potassium 3.2. Gap 14. BUN/creatinine is seventeen 0.6. Glucose 148. Liver enzymes normal. Lipase normal at 62. Urinalysis negative. No white or red cells. No nitrites. Only 1+ bacteria. Labs: Laboratory Results - last 24 hr 11/25/24 11/25/24 16:59 18:04 WBC 4.8 RBC 3.25 L Hgb 9.7 L Hct 28.4 L MCV 87.4 MCH 29.8 MCHC 34.2 RDW Std Deviation 42.5 RDW Coeff of Yury 13.2 Plt Count 220 MPV 9.6 Immature Gran % (Auto) 0.600 Neut % (Auto) 64.4 Lymph % (Auto) 19.4 [place] % (Auto) 12.7 H Eos % (Auto) 2.1 Baso % (Auto) 0.8 Absolute Neuts (auto) 3.1 Absolute Lymphs (auto) 0.93 Nucleated RBC % 0 Platelet Estimate ADEQUATE Hypochromasia 1+ Anisocytosis 1+ Sodium 134 Potassium 3.2 L Chloride 96 L Carbon Dioxide 23.7 Anion Gap 14 BUN 17 Creatinine 0.62 L Estim Creat Clear Calc 43.17 L Est GFR (MDRD) Non-Af 99 BUN/Creatinine Ratio 26.8 H Glucose 148 H Calcium 8.7 Total Bilirubin 0.39 AST 20 ALT 10 Alkaline Phosphatase 58 Total Protein 6.7 Albumin 3.6 Globulin 3.1 Albumin/Globulin Ratio 1.2 Lipase 62 Urine Color Yellow Urine Clarity Clear Urine pH 6.0 Ur Specific [place] 1.015 Urine Protein 30 H Urine Glucose (UA) Normal Urine Ketones Negative Urine Occult Blood Negative Urine Nitrite Negative Urine Bilirubin Negative Urine Urobilinogen Normal Ur Leukocyte Esterase Negative Urine RBC 0 SEEN Urine WBC 0 SEEN Ur Squamous Epith Cells 0-5 SEEN Urine Bacteria 1+ Urine Mucus 1+ Discharge Plan Triage Chief Complaint: Nausea/Vomiting Other Complaint: Anxiety ED Provider: Demarcus Gauthier Dx/Rx/DC Orders Clinical Impression: Nausea, Metastatic colon cancer to liver, Depression, History of cancer chemotherapy Instructions: ED Vomiting (Adult) Prescriptions: New lorazepam [Ativan] 0.5 mg tablet 0.5 mg PO BID PRN (Reason: anxiety) 7 Days Qty: 10 0RF No Action sertraline 50 mg tablet 50 mg PO DAILY alendronate 70 mg tablet 70 mg PO QWEEK Patient Comments: Take once a week on Saturdays. buspirone 7.5 mg tablet 7.5 mg PO DAILY hydromorphone 2 mg Tablet 2 - 4 mg PO Q4H PRN PRN (Reason: PAIN 6-10) 7 Days Qty: 42 0RF methocarbamol 750 mg Tablet 750 mg PO Q8 30 Days Qty: 90 0RF gabapentin 100 mg Capsule 100 mg PO QHS 30 Days Qty: 30 0RF ondansetron 4 mg Tablet,Disintegrating 4 mg PO Q8H PRN PRN (Reason: Nausea) 30 Days Qty: 90 0RF hydroxyzine pamoate 25 mg Capsule 50 mg PO TID PRN PRN (Reason: Itching) 30 Days Qty: 90 0RF Primary Care Provider: Aubrey Lopez Referrals: Jimmie Poole MD [Med Staff - Active Staff] - As soon as possible Aubrey Lopez, [employer] [Primary Care Provider] - Activity Restrictions/Additional Instructions: Plenty of fluids and rest. Increase your diet slowly as tolerated. Zofran as needed for nausea. I wrote you Ativan half a milligram as needed for anxiety. Call and follow-up with our sr. social media & mobile manager tomorrow. I will give them your name and hopefully they contact you in the morning. If the Return if you are feeling worse. Print Language: Swiss Disposition Disposition: Home, Self Care
--- OUTSIDE RECORDS SUMMARY | 2024-11-25 16:53 | XMS RPT_ITS | CCD ---
Author Organization [facility] ion Partnership [facility] Care Team Providers Care Wringer And Setter Name Role Phone Pushpa Barnhart Unavailable Unavailable Pushpa Barnhart Unavailable Unavailable Mary Moss Primary Care Provider Adrian Wallace DO Unavailable Mary Moss Primary Care Provider Adrian Wallace DO Unavailable Unavailable Primary Care Provider Unavailsushila e PROVIDER, UNKNOWN Attending Unavailable PROVIDER, UNKNOWN Admitting Unavailable PROVIDER, UNKNOWN Attending Unavailable PROVIDER, UNKNOWN Admitting Unavailable Mary Moss Primary Care Provider Mary Moss Primary Care Provider [phone] [place] Referring Unavailable MARY MOSS Primary Care Unavailable LISBETH ALFORD Referring UnavailMARY Morales Primary Care Unavailable Mary Moss CNP Primary Care Provider Benson ANDRES, Ion Unavailable Christie Sánchez NP Unavailable Joe Williamson RN Unavailable Saw ANDRES, Tessa Monae Unavailable Amber Deshpande Unavailable UnavailJimmie Bailey MD Unavailable Kate Castillo RN Unavailable Christie Sánchez NP Primary Care Provider Adrian Wallace DO Unavailable Mary Moss CNP Primary Care Provider Gonzalo MECHANIC SENIOR-C, Christie Primary Care Provider Ankit Marsh MD Attending Provider Salma ANDRES, Ankit Emergency Provider Beam MECHANIC SENIOR-C, [place]ul[place] Primary Care Provider Stepan BATISTA, Dr. Humphrey Referring Provider Dr. Milagro Ying DO Emergency Provider Gonzalo MECHANIC SENIOR, Christie Primary Care Provider Saw ANDRES, Tessa A Unavailable Zulema ANDRES, Jimmie Unavailable Kevin PT, Shelby Unavailable Stepan BATISTA, Dr. Humphrey Attending Provider Luis ANDRES, Dr. Qamar Diaz Admit Provider Luis ANDRES, Dr. Qamar Diaz Attending Provider Tobin ANDRES, Dr. Tony Other Provider Luis ANDRES, Dr. Qamar Diaz Referring Provider NAFFOUJE, SAMER A Attending Unavailable NAFFOUJE, SAMER A Admitting Unavailable ISA MARY VILCHISN Primary Care Unavailable NAFFOUJE, SAMER A Attending Unavailable NAFFOUJE, SAMER A Admitting Unavailable GONZALO, CHRISTIE Primary Care Unavailable PROVIDER, UNKNOWN Attending Unavailable PROVIDER, UNKNOWN Admitting Unavailable GONZALO, CHRISTIE Primary Care Unavailable RADHA RODRIGUEZ Attending Unavailable RADHA RODRIGUEZ Admitting Unavailable GONZALO, CHRISTIE Primary Care Unavailable GONZALO, CHRISTIE Primary Care Unavailable PROVIDER, UNKNOWN Attending Unavailable PROVIDER, UNKNOWN Admitting Unavailable Beam MECHANIC SENIOR-C, Zebulun Attending Provider Beam MECHANIC SENIOR-C, [place]un Referring Provider Salma ANDRES, Ankit Emergency Provider Adrian Wallace DO Unavailable Gonzalo MECHANIC SENIOR, Christie Unavailable Teri NOBLE, Joe Unavailable Kevin PT, Shelby Unavailable Salma ANDRES, Ankit Attending Provider Edwar ANDRES, Dr. Teixeira Emergency Provider Unavailab evy Mendez MD, Dr. Bryant Admit Provider Andrea ANDRES, Dr. Bryant Attending Provider Andrea ANDRES, Dr. Bryant Other Provider Edd BATISTA, Dr. Kyle Attending Provider Beam MECHANIC SENIOR-C, [place]ebulun Primary Care Provider Edd BATISTA, Dr. Kyle Other Provider Evy BATISTA, Dr. Vale Emergency Provider Magdalena ANDRES, Dr. Reich Other Provider GONZALO, CHRISTIE Primary Care Unavailable JIMMIE POOLE Attending Unavailable GONZALO, CHRISTIE Primary Care Unavailable NAFFOKAMILLA, SAMER A Attending Unavailable GONZALO, CHRISTIE Primary Care Unavailable JIMMIE POOLE Referring Unavailable GONZALO, CHRISTIE Primary Care Unavailable YUMIKO ALARCON Referring Unavailable NAFFOUJE, SAMER A Referring Unavailable SWIHART, MARY CATHERINE Primary Care Unavailable FE EDMOND Attending Unavailable SWIHART, MARY CATHERINE Primary Care Unavailable AMISH XAVIER Referring Unavailable GONZALO, CHRISTIE Primary Care Unavailable JIMMIE POOLE Referring Unavailable JOSEF, ADRIENNE Attending Unavailable GONZALO, CHRISTIE Primary Care Unavailable JIMMIE POOLE Referring Unavailable GONZALO, CHRISTIE Primary Care Unavailable JOSEF ADRIENNE Referring Unavailable JAG LENZ Attending Unavailable GONZALO, CHRISTIE Primary Care Unavailable PIPE ESTEVEZ Attending Unavailable SWIHART, MARY CATHERINE Primary Care Unavailable DAJUAN CARD Referring Unavailable NAFFOUJE, SAMER A Attending Unavailable SWIHART, MARY CATHERINE Primary Care Unavailable ROSEANNA MALDONADO Referring Unavaila ble PIPE ESTEVEZ Referring Unavailable SWIHART, MARY CATHERINE Primary Care Unavailable NAFFOKAMILLA, SAMER A Attending Unavailable ROSAT, MARY CATHERINE Primary Care Unavailable STEWART GARCÍA Referring Unavailable GONZALO, CHRISTIE Primary Care Unavailable ADRIENNE BAHENA Attending Unavailable GONZALO, CHRISTIE Primary Care Unavailable MICKTERKARENAFE Attending Unavailable GLENNA EDMONDA Referring Unavailable GONZALO, CHRISTIE Primary Care Unavailable JIMMIE POOLE Referring Unavailable NAFFOUJE, SAMER A Referring Unavailable SWIHART, MARY CATHERINE Primary Care Unavailable NAFFOUJE, SAMER A Attending Unavailable SWIHART, MARY CATHERINE Primary Care Unavailable GONZALO, CHRISTIE Primary Care Unavailable JIMMIE POOLE Attending Unavailable GONZALO, CHRISTIE Primary Care Unavailable GONZALO, CHRISTIE Primary Care Unavailable GONZALO, CHRISTIE Primary Care Unavailable NAFFOUJE, SAMER A Attending Unavailable GONZALO, CHRISTIE Primary Care Unavailable GONZALO, CHRISTIE Referring Unavailable EDWARDO VALENCIA Attending Jessika nicole GONZALO, CHRISTIE Primary Care Unavailable NAFFOUJE, SAMER A Referring Unavailable JIMMIE POOLE Attending Unavailable NAFFOUJE, SAMER A Referring Unavailable SWIHART, MARY CATHERINE Primary Care Unavailable GONZALO, CHRISTIE Primary Care Unavailable JIMMIE POOLE Referring Unavailable GONZALO, CHRISTIE Primary Care Unavailable NAFFOUJE, SAMER A Referring Unavailable GONZALO, CHRISTIE Primary Care Unavailable NAFFOUJE, SAMER A Attending Unavailable GONZALO, CHRISTIE Primary Care Unavailable JIMMIE POOLE Referring Unavailable GONZALO, CHRISTIE Primary Care Unavailable JIMMIE POOLE Attending Unavailable JIMMIE POOLE Referring Unavailable GONZALO, CHRISTIE Primary Care Unavailable JIMMIE POOLE Attending Unavailable GONZALO, CHRISTIE Primary Care Unavailable JIMMIE POOLE Referring Unavailable NAFFOUJE, SAMER A Referring Unavailable SWIHART, MARY CATHERINE Primary Care Unavailable SWIHART, MARY CATHERINE Primary Care Unavailable SWIHART, MARY CATHERINE Primary Care Unavailable NAFFOUJE, SAMER A Attending Unavailable NAFFOUJE, SAMER A Referring Unavailable SWIHART, MARY CATHERINE Primary Care Unavailable GONZALO, CHRISTIE Primary Care Unavailable JIMMIE POOLE Attending Unavailable JIMMIE POOLE Referring Unavailable JIMMIE POOLE Referring Unavailable SWIHART, MARY CATHERINE Primary Care Unavailable GONZALO, CHRISTIE Primary Care Unavailable NAFFOUJE, SAMER A Attending Unavailable GONZALO, CHRISTIE Primary Care Unavailable NAFFOUJE, SAMER A Referring Unavailable GONZALO, CHRISTIE Primary Care Unavailable JIMMIE POOLE Referring Unavailable JIMMIE POOLE Attending Unavailable GONZALO, CHRISTIE Primary Care Unavailable JIMMIE POOLE Referring Unavailable GONZALO, CHRISTIE Primary Care Unavailable [place] Attending Unavailable ADRIENNE BAHENA Attending Unavailable MARY MOSS Primary Care Unavailable GONZALO, CHRISTIE Primary Care Unavailable FE EDMOND Referring Unavailable GONZALO, CHRISITE Primary Care Unavailable GONZALO, CHRISTIE Primary Care Unavailable GONZALO, CHRISTIE Primary Care Unavailable JIMMIE POOLE Referring Unavailable Magdalena ANDRES, Dr. Reich Attending Provider Luis, Qamar Chi Referring Unavailable Luis, Qamar Chi Attending Unavailable Beam, [place]eb[place] Primary Care Unavailable Sivakumar Nichols Consulting Unavailable Beam, [place] Primary Care Unavailable Kavin Adams Attending Unavailable Beam, [place] Referring Unavailable Beam, [place]ebulun Attending Unavailable Beam, [place] Primary Care Unavailable Annette Mendez Consulting Unavailable Annette Mendez Admitting Unavailable Beam, [place]ebulun Primary Care Unavailable Saroj Puga Attending Unavailable Saroj Puga Consulting Unavailable Sivakumar Nichols Attending Unavailable Sivakumar Nichols Consulting Unavailable Beam, [place]ebulun Primary Care Unavailable Annette Mendez Attending Unavailable [facility], Christie Primary Care Unavailabl e Ankit Marsh Attending Unavailable Beam, [place]ul[place] Primary Care Unavailable Ungur, Remus Referring Unavailable Ungur, Remus Attending Unavailable Robotham, Cecily Attending Unavailable Robotham, Cecily Admitting Unavailable [facility], Christie Primary Care Unavailabl e Luis, Qamar Chi Attending Unavailable Luis, Qamar Chi Admitting Unavailable Robotham, Cecily Consulting Unavailable Beam, Zebulun Primary Care Unavailable [facility], Christie Primary Care Unavailabl e Gonzalo [facility], [facility] Attending Unavailabl e Robotham, Cecily Attending Unavailable [facility], Christie Referring Unavailabl e Gonzalo [facility], Christie Primary Care Unavailabl e Robotham, Cecily Referring Unavailable Robotham, Cecily Attending Unavailable [facility], Christie Primary Care Unavailabl e Beam, [place]ebulun Primary Care Unavailable Salma Ankit Attending Unavailable Annette Mendez Consulting Unavailable Annette Mendez Admitting Unavailable Saroj Puga Attending Unavailable Beam, [place]ebulun Primary Care Unavailable BONITA MCCRAY Consulting Unavailable CHRISTIE SÁNCHEZ Primary Care Unavailable [place] GONZALEZ Admitting Unavailable KAVIN ADAMS Referring Unavailable PATEL GANDARA Attending Unavailable Allergies Allergy Classification Reported Allergen(s) Allergy Type Date of Onset Reaction(s) Facility Macrolides (antibiotic) (4 sources) Azithromycin Drug Allergy [address] [facility] Work Phone: (2 sources) erythromycin drug allergy 7 [facility] Work Phone: (20 sources) Azithromycin; Translations: [AZITHROMYCIN] Drug Allergy [address] [facility] Work Phone: (20 sources) Erythromycin; Translations: [ERYTHROMYCIN] Drug Allergy 7 Unknown, Other, Intolerance [facility] (1 source) Erythromycin Drug Allergy 5 [facility] Repository Medications Current Medications Medication Drug Class(es) Dates Sig (Normalized) Sig (Original) alendronic acid 70 mg oral tablet (20 sources) Bisphosphonate Start: 10-16-2023 take 1 tablet by mouth every week Alendronate 70 mg tablet Active 70 mg PO EVERY WEEK October 18, 2023 12:00am [facility] amoxicillin 500 mg oral capsule (16 sources) Penicillin-class Antibacterial Start: 06-14-2024 End: 08-05-2024 take 1 capsule by mouth three times daily amoxicillin (AMOXIL) 500 mg capsule Take 500 mg by mouth three times a day. 06/14/2024 08/05/2024 Discontinued busPIRone hydrochloride 7.5 mg oral tablet (20 sources) Start: 10-18-2023 take 1 tablet by mouth twice daily Buspirone 7.5 mg tablet Active 7.5 mg PO TWICE A DAY October 18, 2023 12:00am Start: 10-16-2023 take 1 tablet by miguel once daily Buspirone 7.5 mg tablet Active 7.5 mg PO DAILY October 18, 2023 12:00am Mood Start: 10-10-2019 End: 08-24-2023 Buspirone 7.5 MG tablet Disc ontinued 7.5 mg PO NEEDED as needed for Anxiety October 10, 2019 12:00am August 24, 2023 11:41am Start: 12-21-2016 End: 08-01-2023 Buspirone Active 7.5 MG PO A S NEEDED October 09, 2019 11:00pm Comment on above: Take 7.5 mg by mouth once daily. clonazePAM 0.5 mg disintegrating oral tablet (20 sources) Benzodiazepine Start: 08-04-2023 End: 11-03-2023 clonazePAM orally disintegrating (KLONOPIN WAFER) 0.5 mg disintegrating tablet Indications: Focal epilepsy (HCC) Take 1 tablet by mouth as needed for cluster of seizures. Do not exceed more than 2 tablets per day. 5 tablet 0 08/04/2023 11/03/2023 Active Start: 01-16-2023 End: 08-04-2023 take 1 tablet by mouth once daily at bedtime clonazePAM (KLONOPIN) 0.5 mg tablet Indications: Focal epilepsy (HCC) Take 1 tablet by mouth daily at bedtime for 3 days. 3 tablet 0 01/16/2023 08/04/2023 Discontinued Start: 02-01-2019 End: 09-12-2024 Clonazepam 0.25 MG tablet,disintegrating Discontinued 0.25 mg PO NEEDED as needed for Seizures October 10, 2019 12:00am September 12, 2024 8:37pm Comment on above: Take 1 tablet by miguel th as needed for cluster of seizures. Do not exceed more than 2 tablets per day. Take 1 tablet by miguel th daily at bedtime for 3 days. 0.3 ml enoxaparin sodium 100 mg/ml prefilled syringe (19 sources) Low Molecular Weight Heparin Start: 09-06-19 End: 10-04-19 inject 30 mg by subcutaneous injection every twenty-four hours enoxaparin (LOVENOX) 30 mg/0.3 mL injection Inject 0.3 mL subcutaneously every 24 hours for 28 days. 8.4 mL 09/05/2024 10/03/2024 Active Start: 09-04-2024 End: 09-12-2024 Enoxaparin 30 mg/0.3 mL syri nge Discontinued 30 mg SC Q24H September 04, 2024 12:00am September 12, 2024 8:37pm DVT Prophylaxis enteric contrast (will be provided with radiology test) (4 sources) Start: 03-07-2024 End: 03-08-2024 enteric contrast (will be provided with radiology test) For CT ABD/PEL W IVCON Routine order Administer, As Directed One Time Only, via Oral, Rectal, both Oral and Rectal, Enteric Tube, Stoma or Indwelling Catheter, Enteric Contrast as designated per enteric contrast guidelines 1 Each 03/07/2024 03/08/2024 Active Start: 10-11-2023 End: 10-12-2023 enteric contrast (will be pr ovided with radiology test) Indications: Perforated appendix For CT ENTEROGRAPHY W IVCON order Administer, As Directed One Time Only, via Oral, Rectal, both Oral and Rectal, Enteric Tube, Stoma or Indwelling Catheter, Enteric Contrast as designated per enteric contrast guidelines. 1 Each 0 10/11/2023 10/12/2023 Active hydrOXYzine pamoate 25 mg oral capsule (8 sources) Antihistamine Start: 09-12-2024 Hydroxyzine Pa moate 25 mg Capsule Active 50 mg PO 3 TIMES DAILY NEEDED as needed for Itching 90 30 0 September 12, 2024 12:00am iv contrast (will be provided with radiology test) (10 sources) Start: 08-05-2024 iv contrast (w ill be provided with radiology test) Indications: Right upper quadrant abdominal pain CT ABD/PEL -Inject, intravenously, once for 1 dose.No IV access, insert saline lock prior to the beginning of sedation, infusion, injection of imaging exam. Discontinue saline lock post exam. If Pt. has a central line or IVAD, may access for administration according to line specific nursing protocol. Once exam is complete flush line and de-access according to line specific nursing protocol in the CT contrast administration guidelines link. 1 each 08/05/2024 Suspended Start: 08-05-2024 iv contrast (w ill be provided with radiology test) Indications: Right upper quadrant abdominal pain CT ABD/PEL -Inject, intravenously, once for 1 dose.No IV access, insert saline lock prior to the beginning of sedation, infusion, injection of imaging exam. Discontinue saline lock post exam. If Pt. has a central line or IVAD, may access for administration according to line specific nursing protocol. Once exam is complete flush line and de-access according to line specific nursing protocol in the CT contrast administration guidelines link. 1 each 08/05/2024 Active Start: 07-02-2024 End: 07-03-2024 iv contrast (will be provide d with radiology test) Indications: Right lower quadrant abdominal pain CT ABD/PEL -Inject, intravenously, once for 1 dose.No IV access, insert saline lock prior to the beginning of sedation, infusion, injection of imaging exam. Discontinue saline lock post exam. If Pt. has a central line or IVAD, may access for administration according to line specific nursing protocol. Once exam is complete flush line and de-access according to line specific nursing protocol in the CT contrast administration guidelines link. 1 each 07/02/2024 07/03/2024 Active Start: 03-07-2024 End: 03-08-2024 iv contrast (will be provide d with radiology test) CT ABD/PEL -Inject, intravenously, once for 1 dose.No IV access, insert saline lock prior to the beginning of sedation, infusion, injection of imaging exam. Discontinue saline lock post exam. If Pt. has a central line or IVAD, may access for administration according to line specific nursing protocol. Once exam is complete flush line and de-access according to line specific nursing protocol in the CT contrast administration guidelines link. 1 Each 03/07/2024 03/08/2024 Active Start: 10-11-2023 End: 10-12-2023 iv contrast (will be provide d with radiology test) Indications: Perforated appendix CT Enterography W Inject, intravenously, once for 1 dose.No IV access, insert saline lock prior to the beginning of sedation, infusion, injection of imaging exam. Discontinue saline lock post exam. If Pt. has a central line or IVAD, may access for administration according to line specific nursing protocol. Once exam is complete flush line and de-access according to line specific nursing protocol in the CT contrast administration guidelines link. 1 Each 0 10/11/2023 10/12/2023 Active naloxone 4 mg/actuation nasa l spray (NARCAN) (6 sources) Start: 08-05-2024 naloxone 4 mg/ actuation nasal spray (NARCAN) Use 1 spray in one nostril as needed for overdose. May repeat every 2 to 3 min in alternating nostrils until medical assistance is available 1 each 08/05/2024 Suspended Start: 08-05-2024 naloxone 4 mg/ actuation nasal spray (NARCAN) Use 1 spray in one nostril as needed for overdose. May repeat every 2 to 3 min in alternating nostrils until medical assistance is available 1 each 08/05/2024 Active sertraline 50 mg oral tablet (20 sources) Serotonin Reuptake Inhibitor Start: 10-16-2023 take 1 tablet by mouth once daily Sertraline 50 mg tablet Active 50 mg PO DAILY October 18, 2023 12:00am Mood Completed/Discontinued Medications Medication Drug Class(es) Dates Sig (Normalized) Sig (Original) acetaminophen 500 mg oral tablet (20 sources) Start: 09-12-2024 End: 11-08-2024 take 2 tablets by mouth every eight hours Acetaminophen 500 mg Tablet Discontinued 1000 mg PO EVERY 8 HOURS 0 0 September 12, 2024 12:00am November 08, 2024 11:31am Start: 01-08-2024 take 500-1000 mg by mouth every six hours as needed acetaminophen (TYLENOL EXTRA STRENGTH) 500 mg tablet Take 1-2 tablets by mouth every 6 hours as needed for pain. 01/08/2024 Suspended Start: 10-18-2023 End: 09-12-2024 take 500-1000 mg by mouth every six hours Acetaminophen 500 mg capsule Discontinued 500 - 1000 mg PO EVERY 6 HOURS October 18, 2023 12:00am September 12, 2024 8:37pm Pain Start: 10-18-2023 take 2 capsules by m outh at bedtime Acetaminophen 500 mg capsule Active 1000 mg PO AT BEDTIME October 18, 2023 12:00am Start: 10-25-2019 End: 11-07-2019 take 500-1000 mg by mouth every six hours as needed for pain Acetaminophen 500 MG tablet Discontinued 500 - 1000 mg PO EVERY 6 HOURS NEEDED as needed for Pain Or Fever October 25, 2019 12:00am November 07, 2019 8:27am acetaminophen 325 mg / oxyCODONE hydrochloride 5 mg oral tablet (13 sources) Opioid Agonist Start: 10-10-2019 End: 10-15-2019 Oxycodone-Acetaminophen 1 TABLET tablet Discontinued 1 {tbl} PO EVERY 6 HOURS NEEDED as needed for Pain Score 6-10/10 20 5 0 October 10, 2019 October 14, 2019 12:00am October 15, 2019 12:02am Fracture of humerus Start: 10-10-2019 End: 10-15-2019 take 1 tablet by mouth every six hours as needed Oxycodone-Acetaminophen Discontinued 1 TABLET PO EVERY 6 HOURS NEEDED 20 5 October 10, 2019 October 14, 2019 11:02pm amoxicillin 875 mg / clavulanate 125 mg oral tablet (20 sources) Penicillin-class Antibacterial Start: 12-13-2023 End: 09-12-2024 Amoxicillin-Pot Clavulanate 875-125 mg tablet Discontinued 1 {tbl} PO TWICE A DAY 26 0 December 13, 2023 12:00am September 12, 2024 8:37pm Start: 11-08-2023 End: 11-23-2023 Amoxicillin-Pot Clavulanate 875-125 mg tablet Discontinued 1 {tbl} PO TWICE A DAY 14 7 0 November 21, 2023 9:57am November 27, 2023 12:00am November 23, 2023 1:29pm Start: 09-27-2023 End: 04-11-2024 amoxicillin-clavulanate pota ssium (AUGMENTIN) 875-125 mg per tablet [The details of the medication are not available because there are pending changes by a home health clinician.] 09/27/2023 04/11/2024 Discontinued Start: 09-05-2023 End: 10-27-2023 Amoxicillin-Pot Clavulanate 875-125 mg tablet Discontinued 1 {tbl} PO Q12H 38 19 0 October 18, 2023 12:00am October 27, 2023 1:33pm Start: 08-16-2022 End: 08-24-2023 Amoxicillin-Pot Clavulanate 875-125 mg tablet Discontinued 1 {tbl} PO TWICE A DAY 14 0 August 16, 2022 12:00am August 24, 2023 11:40am Start: 08-16-2022 take 1 tablet by miguel th twice daily Amoxicillin-Pot Clavulanate Active 1 TABLET PO TWICE A DAY August 15, 2022 11:00pm ascorbic acid 500 mg chewable tablet (20 sources) Vitamin C Start: 07-23-2020 End: 08-24-2023 take 1 tablet by mouth once daily Ascorbic Acid (Vitamin C) (Vitamin C) 500 mg Tablet,Chewable Discontinued 500 mg PO DAILY July 23, 2020 12:00am August 24, 2023 11:40am End: 08-01-2023 take 1 tablet by mouth once daily ascorbic acid, vitamin C, (VITAMIN C) 500 mg tablet Take 500 mg by mouth once daily. 0 08/01/2023 Discontinued (Discontinued by Patient) Comment on above: Take 500 mg by mouth once daily. calcium polycarbophil 625 mg oral tablet (9 sources) Start: End: take 1 tablet by mouth twice daily Calcium Polycarbophil (Fiber Laxative (Ca Polycarbo)) 625 mg tablet Discontinued 625 mg PO TWICE A DAY October 18, 2023 12:00am September 12, 2024 8:37pm capecitabine 500 mg oral tablet (20 sources) Nucleoside Metabolic Inhibitor Start: End: capecitabine (XELODA) 500 mg tablet Take 2 tablets (1000 mg) by mouth in the morning and 2 tablets (1000 mg) in the evening for 14 days on and 7 days off. Take with food 56 tablet 2 07/22/2024 12:41 PM EDT 06/24/2024 09/25/2024 Discontinued (Course of therapy completed) Start: 02-01-2024 End: 07-30-2024 capecitabine (XELODA) 500 mg tablet Take 3 tablets (1500 mg) by mouth in the morning and 2 tablets (1000 mg) in the evening for 14 days on and 7 days off. Take with food 70 tablet 2 06/04/2024 5:06 PM EDT 05/02/2024 06/20/2024 Discontinued ciprofloxacin 500 mg oral tablet (20 sources) Quinolone Antimicrobial Start: 11-23-2023 End: 12-07-2023 take 1 tablet by mouth every twelve hours Ciprofloxacin Hcl 500 mg tablet Discontinued 500 mg PO Q12H 28 14 0 November 23, 2023 12:00am December 06, 2023 12:00am December 07, 2023 12:04am Start: 09-27-2023 End: 01-18-2024 ciprofloxacin HCl (CIPRO) 50 0 mg tablet 1 tablet by ORAL/FEEDING TUBE route every 12 hours at 6 am and 6 pm. 09/27/2023 01/18/2024 Discontinued (Discontinued by Patient) Start: 09-05-2023 End: 10-24-2023 take 1 tablet by mouth every twelve hours Ciprofloxacin Hcl 500 mg tablet Discontinued 500 mg PO Q12H 20 0 September 05, 2023 12:00am October 24, 2023 12:41pm 1 ml dexamethasone phosphate 10 mg/ml injection (3 sources) Corticosteroid Start: 11-19-2024 End: 11-19-2024 10 mg, INTRAVENOUS, ONCE, 1 dose, On Tu11/19/24 at 1000, Administer IV doses up to 10 mg over 5 minutes. Administer doses > 10 mg over 15 to 30 minutes. Start: 11-07-2024 End: 11-07-2024 8 mg, INTRAVENOUS, ONCE, 1 d ose, On Mon11/07/24 at 0930, Administer IV doses up to 10 mg over 5 minutes. Administer doses > 10 mg over 15 to 30 minutes. Start: 11-06-2024 End: 11-06-2024 10 mg, INTRAVENOUS, ONCE, 1 dose, On Mon11/06/24 at 1000, Administer IV doses up to 10 mg over 5 minutes. Administer doses > 10 mg over 15 to 30 minutes. diazePAM 5 mg oral tablet (10 sources) Benzodiazepine Start: 11-13-2024 End: 11-23-2024 take 1 tablet by mouth every twelve hours as needed for anxiety diazePAM (VALIUM) 5 mg tablet Indications: Adenocarcinoma of cecum (HCC) Take 1 tablet by mouth every 12 hours as needed for anxiety for up to 10 days. 20 tablet 11/13/2024 11/23/2024 Suspended docusate sodium 100 mg oral capsule (13 sources) Start: 10-10-2019 End: 10-25-2019 take 1 capsule by mouth once daily Docusate Sodium 100 MG capsule Discontinued 100 mg PO DAILY 20 0 October 10, 2019 12:00am October 25, 2019 8:15am docusate sodium 50 mg / sennosides, mcfp 8.6 mg oral tablet (20 sources) Start: 08-21-2024 End: 10-24-2024 Sennosides-Docusate Sodium (Senna Plus) 8.6-50 mg tablet Discontinued 1 NMA PO TWICE A DAY September 04, 2024 12:00am September 12, 2024 8:40pm Constipation 250 ml DOPamine hydrochloride 3.2 mg/ml injection (1 source) Catecholamine Start: 11-21-2024 End: 11-22-2024 5-10 mcg/kg/min 43.9 kg Order-specific weight (4.1156-8.2313 mL/hr, rounded to 4.12-8.23 mL/hr), INTRAVENOUS, CONTINUOUS, Starting on Mon11/21/24 at 0430, Until Mon11/22/24 at 0511, Central Line Preferred - Noncytotoxic Vesicant, Select One: Titrate, Choose target parameter: Mean Arterial Pressure (MAP), Titrate to a MAP (mmHg): 65-70, Starting Dose: 2.5-5 mcg/kg/min or Continue at Current Infusion Rate, Titrate Amount/Interval: Titrate by 2-5 mcg/kg/min every 5-10 minutes., Contact LIP: If dose adjusted by more than 20 mcg/kg/min within 30 minutes., If this medication is paused for any duration of time and needs to be restarted: Restart at 2.5-5 mcg/kg/min and titrate per order parameters. ferrous sulfate 325 mg oral tablet (20 sources) Start: 07-23-2020 End: 08-24-2023 take 1 tablet by mouth once daily Ferrous Sulfate 325 mg (65 mg iron) Tablet Discontinued 325 mg PO DAILY July 23, 2020 12:00am August 24, 2023 11:40am Comment on above: Take 325 mg by mouth daily with breakfast. fexofenadine (2 sources) Histamine-1 Receptor Antagonist Start: 12-21-2016 KORIN ALLERGY 180 MG TABS FEXOFENADINE HCL [id number] Cecily Rudd MD Start: 12-21-2016 KORIN ALLERG Y 180 MG TABS FEXOFENADINE HCL [id number] Cecily Rudd MD fluconazole 200 mg oral tablet (20 sources) Azole Antifungal Start: 10-18-2023 End: 09-12-2024 Fluconazole (Diflucan) 200 mg tablet Discontinued 200 mg PO ONE TIME 2 0 October 18, 2023 12:00am September 12, 2024 8:37pm Take 1 tab with signs of yeast infection, if no results in 72 hours take the other fluorouracil 50 mg/ml injectable solution (2 sources) Nucleoside Metabolic Inhibitor Start: 11-19-2024 End: 11-19-2024 536 mg (400 mg/m2 1.34 m2 Treatment Plan BSA from Recorded weight), INTRAVENOUS, ONCE, 1 dose, On Mon11/19/24 at 1230, Push over 2-4 minutes start immediately after leucovorin infusion is complete. EXP: 11/29/24 @0900 REF Hazardous Chemotherapy Drug: Use appropriate PPE. Start: 11-06-2024 End: 11-06-2024 536 mg (400 mg/m2 1.34 m2 Tr eatment Plan BSA from Recorded weight), INTRAVENOUS, ONCE, 1 dose, On Mon11/06/24 at 1230, Push over 2-4 minutes start immediately after leucovorin infusion is complete. exp 1330 11/15/24 (refrigerated) Hazardous Chemotherapy Drug: Use appropriate PPE. fluorouracil (ADRUCIL) 3,216 mg in NaCl 0.9% 102 mL in empty bag (2 sources) Start: 11-19-2024 End: 11-19-2024 3,216 mg (2,400 mg/m2 1.34 m 2 Treatment Plan BSA from Recorded weight), INTRAVENOUS, at 2.2 mL/hr, Administer over 46 Hours, ONCE, 1 dose, On Mon11/19/24 at 1230, EXP: 11/29/24 @0900 REF Hazardous Chemotherapy Drug: Use appropriate PPE. Protect from Light. Start: 11-06-2024 End: 11-06-2024 3,216 mg (2,400 mg/m2 1.34 m 2 Treatment Plan BSA from Recorded weight), INTRAVENOUS, at 2.2 mL/hr, Administer over 46 Hours, ONCE, 1 dose, On Mon11/06/24 at 1230, exp 1400 11/15/24 (refrigerated) Hazardous Chemotherapy Drug: Use appropriate PPE. Protect from Light. FLUoxetine 20 mg oral capsule (20 sources) Serotonin Reuptake Inhibitor Start: 07-23-2020 End: 08-24-2023 take 1 capsule by mouth once daily Fluoxetine 20 mg Capsule Discontinued 20 mg PO DAILY July 23, 2020 12:00am August 24, 2023 11:42am Comment on above: Take 20 mg by mouth once daily. Food Supplement, Lactose-Free (ENSURE ACTIVE HIGH PROTEIN) liqd (20 sources) Start: 09-27-2023 End: 07-15-2024 take 237 mL by mouth three times daily at mealtime Food Supplement, Lactose-Free (ENSURE ACTIVE HIGH PROTEIN) liqd Take 237 mL by mouth three times a day with meals. 20506 mL 09/27/2023 07/15/2024 Discontinued Start: 09-27-2023 take 237 mL by mouth three times daily at mealtime Food Supplement, Lactose-Free (ENSURE ACTIVE HIGH PROTEIN) liqd Take 237 mL by mouth three times a day with meals. 79816 mL 09/27/2023 Active Start: 09-27-2023 take 237 mL by mouth three times daily at mealtime Food Supplement, Lactose-Free (ENSURE ACTIVE HIGH PROTEIN) liqd Take 237 mL by mouth three times a day with meals. 89663 mL 0 09/27/2023 Active Start: 09-27-2023 End: 10-27-2023 take 237 mL by mouth three times daily at mealtime Food Supplement, Lactose-Free (ENSURE ACTIVE HIGH PROTEIN) liqd Take 237 mL by mouth three times a day with meals. 75595 mL 0 09/27/2023 10/27/2023 Active Food Supplement, Lactose-Free (ENSURE CLEAR) liqd (20 sources) Start: 09-27-2023 End: 07-15-2024 take 237 mL by mouth once daily after lunch Food Supplement, Lactose-Free (ENSURE CLEAR) liqd Take 237 mL by mouth daily after lunch. PM Snack 7110 mL 09/27/2023 07/15/2024 Discontinued Start: 09-27-2023 take 237 mL by mouth once daily after lunch Food Supplement, Lactose-Free (ENSURE CLEAR) liqd Take 237 mL by mouth daily after lunch. PM Snack 7110 mL 09/27/2023 Active Start: 09-27-2023 take 237 mL by mouth once daily after lunch Food Supplement, Lactose-Free (ENSURE CLEAR) liqd Take 237 mL by mouth daily after lunch. PM Snack 7110 mL 0 09/27/2023 Active Start: 09-27-2023 End: 10-27-2023 take 237 mL by mouth once daily after lunch Food Supplement, Lactose-Free (ENSURE CLEAR) liqd Take 237 mL by mouth daily after lunch. PM Snack 7110 mL 0 09/27/2023 10/27/2023 Active Food Supplement, Lactose-Reji e (ENSURE HIGH PROTEIN) liqd (20 sources) Start: 09-27-2023 End: 07-15-2024 Food Supplement, Lactose-Reji e (ENSURE HIGH PROTEIN) liqd Take 237 mL by mouth two times a day. 2 times daily between meals 44723 mL 09/27/2023 07/15/2024 Discontinued Start: 09-27-2023 Food Supplemen t, Lactose-Free (ENSURE HIGH PROTEIN) liqd Take 237 mL by mouth two times a day. 2 times daily between meals 80071 mL 09/27/2023 Active Start: 09-27-2023 Food Supplemen t, Lactose-Free (ENSURE HIGH PROTEIN) liqd Take 237 mL by mouth two times a day. 2 times daily between meals 76119 mL 0 09/27/2023 Active Start: 09-27-2023 End: 10-27-2023 Food Supplement, Lactose-Reji e (ENSURE HIGH PROTEIN) liqd Take 237 mL by mouth two times a day. 2 times daily between meals 57025 mL 0 09/27/2023 10/27/2023 Active Food Supplement, Lactose-Free (PROMOTE, OSMOLITE, TWO DILLAN, ENSURE PLUS, ENLIVE) liqd (20 sources) Start: 02-01-2024 End: 07-15-2024 take 237 mL by mouth three times daily at mealtime Food Supplement, Lactose-Free (PROMOTE, OSMOLITE, TWO DILLAN, ENSURE PLUS, ENLIVE) liqd Indications: Malignant neoplasm of ascending colon (HCC) Take 237 mL by mouth three times a day with meals. 3000 mL 11 02/01/2024 07/15/2024 Discontinued Start: 02-01-2024 take 237 mL by mouth three times daily at mealtime Food Supplement, Lactose-Free (PROMOTE, OSMOLITE, TWO DILLAN, ENSURE PLUS, ENLIVE) liqd Indications: Malignant neoplasm of ascending colon (HCC) Take 237 mL by mouth three times a day with meals. 3000 mL 11 02/01/2024 Active Start: 02-01-2024 End: 02-01-2024 take 237 mL by mouth three times daily at mealtime Food Supplement, Lactose-Free (PROMOTE, OSMOLITE, TWO DILLAN, ENSURE PLUS, ENLIVE) liqd Take 237 mL by mouth three times a day with meals. 1000 mL 11 02/01/2024 02/01/2024 Discontinued Start: 02-01-2024 take 237 mL by mouth three times daily at mealtime Food Supplement, Lactose-Free (PROMOTE, OSMOLITE, TWO DILLAN, ENSURE PLUS, ENLIVE) liqd Take 237 mL by mouth three times a day with meals. 1000 mL 11 02/01/2024 Active gabapentin 300 mg oral capsule (20 sources) Anti-epileptic Agent Start: 09-20-2024 End: 01-22-2025 take 1 capsule by mouth once daily gabapentin (NEURONTIN) 300 mg capsule Take 1 capsule by mouth once daily for 90 days. 30 capsule 2 10/24/2024 01/22/2025 Suspended Start: 07-31-2024 End: 09-20-2024 take 1 capsule by mouth at bedtime Gabapentin 100 mg capsule Discontinued 100 mg PO AT BEDTIME September 04, 2024 12:00am September 12, 2024 8:37pm Nerve Pain HYDROmorphone hydrochloride 2 mg oral tablet (20 sources) Opioid Agonist Start: 11-11-2024 End: 11-18-2024 take 1 tablet by mouth every twelve hours HYDROmorphone 2 mg tablet Indications: Malignant neoplasm of cecum (HCC) , RLQ abdominal pain Take 1 tablet by mouth every 12 hours for 7 days. 14 tablet 11/11/2024 11/18/2024 Discontinued (Course of therapy completed) Start: 10-24-2024 End: 10-31-2024 take 1 tablet by mouth every twelve hours HYDROmorphone 2 mg tablet Indications: Malignant neoplasm of cecum (HCC) , RLQ abdominal pain Take 1 tablet by mouth every 12 hours for 7 days. 14 tablet 10/24/2024 10/31/2024 Active Start: 09-04-2024 End: 10-04-2024 take 2-4 mg by mouth every four hours as needed for pain Hydromorphone 2 mg Tablet Active 2 - 4 mg PO EVERY 4 HOURS NEEDED as needed for PAIN 6-10 42 7 0 September 12, 2024 Malignant neoplasm of colon Malignant neoplasm of colon, unspecified Start: 08-21-2024 End: 08-28-2024 take 0.5-1 tablets by mouth every four hours as needed HYDROmorphone (DILAUDID) 2 mg tablet Indications: Cancer related pain , Malignant neoplasm of colon, unspecified part of colon (HCC) Take 1/2 to 1 tablet by mouth every 4 hours as needed for up to 7 days. 42 tablet 08/21/2024 1:38 PM EDT 08/21/2024 08/28/2024 Active lacosamide 100 mg oral tablet (20 sources) Anti-epileptic Agent Start: 08-25-2023 End: 09-12-2024 take 1 tablet by mouth twice daily Lacosamide 100 mg Tablet Discontinued 100 mg PO TWICE A DAY 60 August 25, 2023 12:00am September 12, 2024 8:38pm Leucovorin (2 sources) Folate Analog Start: 11-19-2024 End: 11-19-2024 536 mg (400 mg/m2 1.34 m2 Treatment Plan BSA from Recorded weight), INTRAVENOUS, Administer over 2 Hours, ONCE, 1 dose, On Mon11/19/24 at 1030, PROTECT FROM LIGHT ADMINISTER CONCURRENTLY WITH OXALIPLATIN. EXP: 11/23/24 @0900 REF REFRIGERATE Start: 11-06-2024 End: 11-06-2024 536 mg (400 mg/m2 1.34 m2 Tr eatment Plan BSA from Recorded weight), INTRAVENOUS, Administer over 2 Hours, ONCE, 1 dose, On Mon11/06/24 at 1030, PROTECT FROM LIGHT exp 1330 11/09/24 (refrigerated) ADMINISTER CONCURRENTLY WITH OXALIPLATIN. REFRIGERATE lidocaine 0.05 mg/mg medicated patch (20 sources) Antiarrhythmic, Amide Local Anesthetic Start: 09-12-2024 End: 11-20-2024 Lidocaine 5 % Adhesive Patch,Medicated Discontinued 2 NMA TOPICAL DAILY 60 30 0 September 12, 2024 12:00am November 20, 2024 9:55pm Start: 09-04-2024 lidocaine (HAM ONPAS) 4 % patch Apply 2 patches to affected area as directed once daily. Keep patches on for 12 hour and remove patches after 12 hours. 60 patch 09/04/2024 Suspended Start: 09-04-2024 End: 09-12-2024 Lidocaine (Lidocaine Pain Re lief) 4 % adhesive patch,medicated Discontinued 2 NMA TOPICAL DAILY September 04, 2024 12:00am September 12, 2024 8:38pm Pain may leave on for up to 12 hrs lidocaine 25 mg/ml / prilocaine 25 mg/ml topical cream (20 sources) Antiarrhythmic, Amide Local Anesthetic Start: 09-25-2024 End: 10-24-2025 lidocaine-prilocaine (EMLA) 2.5-2.5 % cream Indications: Adenocarcinoma of cecum (HCC) Apply to port 60 minutes before accessing 15 g 3 09/25/2024 10/24/2025 Suspended magnesium oxide 500 mg oral capsule (20 sources) Start: 06-11-2018 End: 08-24-2023 Magnesium Oxide 500 MG capsule Discontinued 250 mg PO THREE TIMES A DAY June 11, 2018 12:00am August 24, 2023 11:40am supplement Start: 06-11-2018 take 250 mg by mouth three times daily Magnesium Oxide Active 250 MG PO THREE TIMES A DAY June 10, 2018 11:00pm End: 08-01-2023 take 1 tablet by mouth three times daily Magnesium Oxide 250 mg magnesium tab Take 250 mg by mouth three times daily. 0 08/01/2023 Discontinued (Discontinued by Patient) Comment on above: Take 250 mg by mouth three times daily. methocarbamol 500 mg oral tablet (20 sources) Muscle Relaxant Start: End: take 1 tablet by mouth every twelve hours as needed methocarbamol (ROBAXIN) 500 mg tablet Take 1 tablet by mouth two times a day as needed (spasm/pain) for up to 28 days. 56 tablet 10/24/2024 11/21/2024 Start: 09-16-2024 End: 09-30-2024 take 1 tablet by mouth every twelve hours as needed methocarbamol (ROBAXIN) 500 mg tablet Take 1 tablet by mouth two times a day as needed (spasm/pain) for up to 14 days. 28 tablet 09/16/2024 09/30/2024 Active Start: 09-12-2024 take 1 tablet by miguel th every eight hours Methocarbamol 750 mg Tablet Active 750 mg PO EVERY 8 HOURS 90 30 0 September 12, 2024 12:00am Start: 09-04-2024 End: 10-04-2024 take 1 tablet by mouth three times daily methocarbamol (ROBAXIN) 750 mg tablet Take 1 tablet by mouth three times a day. 90 tablet 09/04/2024 10/04/2024 Active Start: 09-04-2024 End: 09-12-2024 Methocarbamol 500 mg tablet Discontinued 750 mg PO Q8H September 04, 2024 12:00am September 12, 2024 8:39pm muscle spasm Start: 04-11-2024 End: 05-01-2024 take 1 tablet by mouth three times daily methocarbamol (ROBAXIN) 500 mg tablet Take 1 tablet by mouth three times a day for 20 days. 60 tablet 04/11/2024 05/01/2024 Active Start: 01-08-2024 End: 08-05-2024 take 1 tablet by mouth every twelve hours as needed methocarbamol (ROBAXIN) 500 mg tablet Take 1 tablet by mouth two times a day as needed (muscle spasms). HOLD if lighted or dizzy 12 tablet 02/02/2024 08/05/2024 Discontinued metroNIDAZOLE 500 mg oral tablet (9 sources) Nitroimidazole Antimicrobial Start: 11-23-2023 End: 12-07-2023 take 1 tablet by mouth every eight hours Metronidazole 500 mg tablet Discontinued 500 mg PO Q8H 42 14 0 November 23, 2023 12:00am December 06, 2023 12:00am December 07, 2023 12:04am MULTIPLE VITAMINS-MINERALS (1 source) Start: 12-21-2016 DAILY MULTIVITAMIN CAPS MULTIPLE VITAMINS-MINERALS [id number] Cecily Rudd MD MULTIPLE VITAMINS-MINERALS (1 source) Start: 12-21-2016 DAILY MULTIVITAMIN CAPS MULTIPLE VITAMINS-MINERALS [id number] Cecily Rudd MD naloxone hydrochloride 40 mg/ml nasal spray (14 sources) Opioid Antagonist Start: 09-20-2024 End: 10-24-2024 naloxone 4 mg/actuation nasal spray (NARCAN) Use 1 spray in one nostril as needed for overdose. May repeat every 2 to 3 min in alternating nostrils until medical assistance is available 1 each 09/20/2024 10/24/2024 Discontinued OLANZapine 10 mg oral tablet (20 sources) Atypical Antipsychotic Start: 09-20-2024 take 1 tablet by mouth once daily at bedtime OLANZapine (ZYPREXA) 10 mg tablet Take 1 tablet by mouth daily at bedtime. 90 tablet 10/24/2024 Suspended 2 ml ondansetron 2 mg/ml injection (20 sources) Serotonin-3 Receptor Antagonist Start: 11-07-2024 End: 11-07-2024 8 mg, INTRAVENOUS, ONCE, 1 dose, On Erin 11/07/24 at 0930 Start: 04-16-2024 End: 09-12-2024 take 1 tablet by mouth every eight hours as needed for nausea Ondansetron 4 mg tablet,disintegrating Discontinued 4 mg PO EVERY 8 HOURS NEEDED as needed for Nausea 10 July 11, 2024 12:00am September 12, 2024 8:39pm Start: 04-08-2024 End: 09-12-2024 take 1 tablet by mouth every six hours as needed for nausea and vomiting Ondansetron 4 mg tablet,disintegrating Discontinued 4 mg PO EVERY 6 HOURS as needed for nausea and vomiting 15 April 08, 2024 1:00am September 12, 2024 8:39pm Start: 02-16-2024 take 1 tablet by miguel th twice daily as needed for nausea ondansetron (ZOFRAN) 4 mg tablet Indications: CINV (chemotherapy-induced nausea and vomiting) Take 1 tablet by mouth two times a day as needed for nausea/vomiting. FOR NAUSEA 30 tablet 2 02/16/2024 Active Start: 01-10-2024 End: 01-17-2024 take 1 tablet by mouth every eight hours as needed for nausea ondansetron (ZOFRAN) 4 mg tablet Indications: Post-operative nausea and vomiting Take 1 tablet by mouth every 8 hours as needed for nausea/vomiting (for nausea.) for up to 7 days. 21 tablet 01/10/2024 01/17/2024 Active oxaliplatin (2 sources) [facility] Start: 11-19-2024 End: 11-19-2024 113.9 mg (85 mg/m2 1.34 m2 Treatment Plan BSA from Recorded weight), INTRAVENOUS, Administer over 2 Hours, ONCE, 1 dose, On Mon11/19/24 at 1030, Administer concurrently with leucovorin. EXP: 11/29/24 @0900 REF Hazardous Chemotherapy Drug: Use appropriate PPE. Antineoplastic Irritant with Vesicant Potential. Flush line with D5W before and after administration. Start: 11-06-2024 End: 11-06-2024 113.9 mg (85 mg/m2 1.34 m2 T reatment Plan BSA from Recorded weight), INTRAVENOUS, Administer over 2 Hours, ONCE, 1 dose, On Mon11/06/24 at 1030, Administer concurrently with leucovorin. exp 1200 11/15/24 (refrigerated) Hazardous Chemotherapy Drug: Use appropriate PPE. Antineoplastic Irritant with Vesicant Potential. Flush line with D5W before and after administration. oxyCODONE hydrochloride 5 mg oral tablet (20 sources) Opioid Agonist Start: 11-18-2024 End: 11-25-2024 take 1 tablet by mouth every six hours as needed for pain oxyCODONE IR (ROXICODONE) 5 mg immediate release tablet Indications: Adenocarcinoma of cecum (HCC) Take 1 tablet by mouth every 6 hours as needed for pain for up to 7 days. 30 tablet 11/18/2024 11/25/2024 Suspended Start: 08-09-2024 End: 08-23-2024 take 1 tablet by mouth every eight hours as needed for pain oxyCODONE IR (ROXICODONE) 10 mg tab Indications: RLQ abdominal pain , Malignant neoplasm of ascending colon (HCC) Take 1 tablet by mouth every 8 hours as needed for pain for up to 14 days. 42 tablet 08/09/2024 08/23/2024 Suspended Start: 08-05-2024 End: 08-19-2024 take 1 tablet by mouth every twelve hours oxyCODONE ER (OXYCONTIN) 10 mg 12 hr tablet Indications: Malignant neoplasm of ascending colon (HCC) , RLQ abdominal pain Take 1 tablet by mouth every 12 hours for 14 days. 28 tablet 08/05/2024 08/09/2024 Discontinued (Cost of medication) Start: 08-01-2024 End: 08-08-2024 take 1 tablet by mouth every six hours as needed for pain oxyCODONE IR (ROXICODONE) 5 mg immediate release tablet Indications: Adenocarcinoma of cecum (HCC) Take 1 tablet by mouth every 6 hours as needed for pain for up to 7 days. FOR PAIN. 30 tablet 08/01/2024 Active Start: 01-08-2024 End: 01-15-2024 take 1 tablet by mouth every six hours as needed for pain oxyCODONE IR (ROXICODONE) 5 mg immediate release tablet Indications: Post-op pain Take 1 tablet by mouth every 6 hours as needed (breakthroug pain) for up to 7 days. 18 tablet 01/08/2024 01/15/2024 Active Start: 12-28-2023 End: 01-04-2024 take 1 tablet by mouth every eight hours as needed for pain oxyCODONE IR (ROXICODONE) 5 mg immediate release tablet Indications: Perforated appendix Take 1 tablet by mouth every 8 hours as needed for pain for up to 7 days. 21 tablet 12/28/2023 01/04/2024 Active Start: 10-25-2019 End: 11-07-2019 Oxycodone 5 MG tablet Discon tinued 1 - 2 {tbl} PO EVERY 6 HOURS NEEDED as needed for Pain Or Fever October 25, 2019 12:00am November 07, 2019 8:27am Start: 10-25-2019 End: 11-07-2019 take 1 tablet by mouth every six hours as needed Oxycodone Discontinued 1 - 2 TABLET PO EVERY 6 HOURS NEEDED October 24, 2019 11:00pm November 07, 2019 7:27am 5 ml palonosetron 0.05 mg/ml injection (2 sources) Serotonin-3 Receptor Antagonist Start: 11-19-2024 End: 11-19-2024 0.25 mg, INTRAVENOUS, ONCE, 1 dose, On Mon11/19/24 at 1000, Flush IV line with NS prior to and following administration. Start: 11-06-2024 End: 11-06-2024 0.25 mg, INTRAVENOUS, ONCE, 1 dose, On Mon11/06/24 at 1000, Flush IV line with NS prior to and following administration. pantoprazole 40 mg delayed release oral tablet (20 sources) Proton Pump Inhibitor Start: 09-27-2023 End: 09-12-2024 take 1 tablet by mouth once daily Pantoprazole 40 mg tablet,delayed release (DR/EC) Discontinued 40 mg PO DAILY October 18, 2023 12:00am September 12, 2024 8:39pm polyethylene glycol 3350 [id number] mg powder for oral solution (20 sources) Osmotic Laxative Start: 08-21-2024 End: 10-24-2024 take 17 g by mouth once daily as needed for constipation Polyethylene Glycol 3350 17 gram/dose powder Discontinued 17 g PO DAILY as needed for constipation September 04, 2024 12:00am September 12, 2024 8:39pm microencapsulated potassium chloride 20 meq extended release oral tablet (20 sources) Start: 04-16-2024 End: 06-22-2024 take 1 tablet by mouth twice daily, then take 1 tablet by mouth once daily potassium chloride ER (KLOR-CON) 20 mEq tablet Indications: CINV (chemotherapy-lokesh estrada nausea and vomiting) , Hypokalemia Take 1 tablet by mouth two times a day for 7 days, THEN 1 tablet once daily. 74 tablet 04/16/2024 06/22/2024 Start: 01-19-2024 End: 04-16-2024 take 2 capsules by mouth every twelve hours potassium chloride SR (MICRO-K) 10 mEq CR capsule Take 2 capsules by mouth every 12 hours. 01/19/2024 04/16/2024 Discontinued (Changing Therapy/Dosage Form) Start: 10-18-2023 End: 09-12-2024 take 1 tablet by mouth once daily Potassium Chloride 20 mEq tablet,ER particles/crystals Discontinued 20 meq PO DAILY October 18, 2023 12:00am September 12, 2024 8:39pm take 1 tablet by miguel th twice daily potassium chloride (K-TAB) 10 mEq tablet Take 10 mEq by mouth twice daily. 0 Active Comment on above: Take 10 mEq by mouth twice daily. Potassium Chloride (Klor-Con M20) 20 MEQ Tab.Er.Prt (13 sources) Start: 10-25-2019 End: 07-26-2020 take 1 tablet by mouth twice daily Potassium Chloride (Klor-Con M20) 20 MEQ Tab.Er.Prt Discontinued 20 MEQ PO TWICE A DAY October 25, 2019 3:23pm July 26, 2020 10:10am started 10/25/19 Start: 10-25-2019 End: 07-26-2020 take 1 tablet by mouth twice daily Potassium Chloride (Klor-Con M20) 20 MEQ Tab.Er.Prt Discontinued 20 meq PO TWICE A DAY October 25, 2019 12:00am July 26, 2020 10:10am low potassium started 10/25/19 Start: 10-25-2019 End: 07-26-2020 take 1 tablet by mouth twice daily Potassium Chloride (Klor-Con M20) 20 MEQ Tab.Er.Prt Discontinued 20 meq PO TWICE A DAY October 25, 2019 12:00am July 26, 2020 10:10am started 10/25/19 Start: 10-25-2019 End: 07-26-2020 take 1 tablet by mouth twice daily Potassium Chloride (Klor-Con M20) 20 MEQ Tab.Er.Prt Discontinued 20 MEQ PO TWICE A DAY October 24, 2019 11:00pm July 26, 2020 9:10am started 10/25/19 Start: 10-25-2019 End: 07-26-2020 take 1 tablet by mouth twice daily Potassium Chloride (Klor-Con M20) 20 MEQ Tab.Er.Prt Discontinued 20 MEQ PO TWICE A DAY October 25, 2019 12:00am July 26, 2020 10:10am started 10/25/19 potassium chloride iv piggyback 40 mEq (20 mEq x 2 doses) (1 source) Start: 11-19-2024 End: 11-19-2024 20 mEq, INTRAVENOUS, at 50-100 mL/hr, Administer over 1-2 Hours, EVERY 1 HOUR, 2 doses, First dose on Mon11/19/24 at 1000, Last dose on Mon11/19/24 at 1100, Dispensed as potassium chloride 20 mEq/100 mL x 2 = 40 mEq NONCYTOTOXIC VESICANT If ordered with infusion rate range, start with maximum infusion rate and decrease rate if infusion is not tolerated potassium citrate 10 meq extended release oral tablet (2 sources) Metabolic Alkalinizer Start: 12-21-2016 POTASSIUM CITRATE ER 10 MEQ (1080 MG) CR-TABS POTASSIUM CITRATE [id number] Cecily Rudd MD prochlorperazine 10 mg oral tablet (20 sources) Phenothiazine Start: 11-06-2024 take 1 tablet by mouth every six hours as needed prochlorperazine (COMPAZINE) 10 mg tablet Take 1 tablet by mouth every 6 hours as needed for nausea/vomiting. 30 tablet 2 11/06/2024 Suspended Start: 09-25-2024 End: 10-24-2024 take 1 tablet by mouth every six hours as needed for nausea prochlorperazine (COMPAZINE) 10 mg tablet Indications: Adenocarcinoma of cecum (HCC) Take 1 tablet by mouth every 6 hours as needed for nausea/vomiting. 30 tablet 2 09/25/2024 10/24/2024 Discontinued Sennosides (Senna) 8.6 mg tablet (9 sources) Start: 10-18-2023 End: 09-12-2024 take 1 tablet by mouth twice daily Sennosides (Senna) 8.6 mg tablet Discontinued 8.6 mg PO TWICE A DAY October 18, 2023 12:00am September 12, 2024 8:39pm Start: 10-18-2023 take 1 tablet by miguel twice daily Sennosides (Senna) 8.6 mg tablet Active 8.6 mg PO TWICE A DAY October 18, 2023 12:00am sennosides, mcfp 8.6 mg oral tablet (20 sources) Start: 09-27-2023 End: 01-18-2024 take 1 tablet by mouth twice daily senna (SENOKOT) 8.6 mg tab 1 tablet by ORAL/FEEDING TUBE route two times a day. 09/27/2023 01/18/2024 Discontinued (Discontinued by Patient) 1000 ml sodium chloride 9 mg/ml injection (1 source) Start: 11-07-2024 End: 11-07-2024 1,000 mL, INTRAVENOUS, at 999 mL/hr, Administer over 1 Hours, ONCE, 1 dose, On Erin 11/07/24 at 0930 sulfamethoxazole 800 mg / trimethoprim 160 mg oral tablet (18 sources) Dihydrofolate Reductase Inhibitor Antibacterial, Sulfonamide Antimicrobial Start: 12-13-2023 End: 09-12-2024 Sulfamethoxazole-T rimethoprim (Bactrim Ds) 800-160 mg tablet Discontinued 1 {tbl} PO TWICE A DAY December 13, 2023 12:00am September 12, 2024 8:40pm Start: 10-24-2023 End: 11-06-2023 Sulfamethoxazole-Trimethopri m (Bactrim Ds) 800-160 mg tablet Discontinued 1 {tbl} PO TWICE A DAY 13 October 24, 2023 12:00am November 05, 2023 12:00am November 06, 2023 12:04am ursodiol 300 mg oral capsule (15 sources) Bile Acid Start: 09-16-2024 End: 12-15-2024 take 1 capsule by mouth twice daily ursodiol (ACTIGALL) 300 mg capsule Take 1 capsule by mouth two times a day. 180 capsule 09/16/2024 10/24/2024 Discontinued 24 hr divalproex sodium 250 mg extended release oral tablet (20 sources) Mood Stabilizer, Anti-epilepti c Agent Start: 10-23-2023 End: 10-24-2024 take 2 tablets by mouth twice daily divalproex ER (DEPAKOTE ER) 250 mg 24 hr tablet Take 2 tablets by mouth two times a day. 360 tablet 1 10/23/2023 10/24/2024 Discontinued Start: 08-25-2023 End: 10-18-2023 Divalproex (Depakote Er) 250 mg tablet extended release 24 hr Discontinued 750 mg PO TWICE A DAY 180 0 August 25, 2023 12:00am October 18, 2023 10:33am Start: 08-01-2023 End: 09-12-2024 take 1 tablet by mouth twice daily Divalproex 500 mg tablet extended release 24 hr Discontinued 500 mg PO TWICE A DAY October 18, 2023 12:00am September 12, 2024 8:37pm Epilesy Start: 07-21-2022 End: 05-07-2024 take 3 tablets by mouth once daily, then take 3 tablets by mouth once daily at bedtime divalproex ER (DEPAKOTE ER) 250 mg 24 hr tablet Indications: Focal epilepsy (HCC) Take 3 tablets by mouth once daily AND 3 tablets daily at bedtime. 540 tablet 3 05/08/2023 08/01/2023 Discontinued Start: 07-24-2020 End: 08-24-2023 Divalproex (Depakote Er) 250 mg tablet extended release 24 hr Discontinued 500 mg PO AT BEDTIME July 24, 2020 12:00am August 24, 2023 11:42am seizures Start: 07-24-2020 End: 04-20-2024 Divalproex (Depakote Er) 250 mg tablet extended release 24 hr Discontinued 1000 mg PO TWICE A DAY July 24, 2020 12:00am August 25, 2023 2:22pm seizures Start: 07-24-2020 End: 10-19-2022 take 1 tablet by mouth once daily Divalproex (Depakote Er) 250 mg tablet extended release 24 hr Active 250 MG PO DAILY July 23, 2020 11:00pm Comment on above: Take 2 tablets by mo uth twice daily. Take 2 tablets by mo uth once daily AND 3 tablets daily at bedtime. Take 3 tablets by [facility] once daily AND 3 tablets daily at bedtime. vancomycin 25 mg/ml oral solution (3 sources) Glycopeptide Antibacterial Start: 11-08-2024 End: 11-20-2024 Vancomycin (Firvanq) 25 mg/mL Recon Soln Discontinued 125 mg PO EVERY 6 HOURS 180 9 0 November 08, 2024 12:00am November 20, 2024 9:56pm zinc oxide 130 mg/ml topical cream (20 sources) Start: 09-27-2023 End: 01-18-2024 zinc oxide (DESITIN) 13 % cream Apply to affected area as needed. 09/27/2023 01/18/2024 Discontinued (Discontinued by Patient) Problems Active Problems Problem Classification Problem Date Documented Da te Episodic/Chronic Abdominal pain (20 sources) Right lower quadrant pain; Translations: [Right lower quadrant pain] Onset: 5 03-07-2024 Episodic Acute myocardial infarction (6 sources) Myocardial infarction; Translations: [ST elevation (STEMI) myocardial infarction of unspecified site] Onset: 5 11-21-2024 Chronic Alcohol-related disorders (13 sources) Alcohol dependence; Translations: [Alcohol dependence, uncomplicated] 07-24-2020 Chronic Comment on above: Quit drinking in Anxiety disorders (20 sources) Mixed anxiety and depressive disorder; Translations: [Anxiety disorder, unspecified] Onset: 9 02-01-2019 Chronic Appendicitis and other appendiceal conditions (20 sources) Rupture of appendix; Translations: [Acute 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 with perforation and localized peritonitis, without abscess] Onset: 4 Resolved: 4 09-13-2023 Episodic Comment on above: Status post drain an d drain removed due to being out of place still had inflammation in the right lower quadrant and received antibiotics Cancer of colon (20 sources) Adenocarcinoma of cecum; Translations: [Malignant neoplasm of cecum] Onset: 4 01-09-2024 Chronic Cancer of colon (9 sources) History of malignant neoplasm of colon; Translations: [Personal history of other malignant neoplasm of large intestine] 04-16-2024 Episodic Cardiac arrest and ventricular fibrillation (4 sources) Ventricular fibrillation; Translations: [Cardiac arrest, cause unspecified] 11-21-2024 Chronic Cardiac dysrhythmias (1 source) Ventricular tachycardia; Translations: [VT (ventricular tachycardia)] Onset: 5 11-22-2024 Chronic Coronary atherosclerosis and other heart disease (6 sources) Acute coronary syndrome; Translations: [Acute ischemic heart disease, unspecified] Onset: 5 11-21-2024 Chronic Deficiency and other anemia (2 sources) Iron deficiency anemia secondary to inadequate dietary iron intake; Translations: [Other iron deficiency anemias] 12-28-2023 Episodic Deficiency and other anemia (18 sources) Anemia; Translations: [Anemia, unspecified] 08-31-2023 Episodic E Codes: Adverse effects of medical drugs (2 sources) Adverse effect of other opioids, initial encounter; Translations: [Adverse effect of antineoplastic and immunosuppressive drugs, initial encounter] Onset: Episodic E Codes: Fall (13 sources) Fall; Translations: [Unspecified fall, initial encounter] 08-04-2020 Episodic Epilepsy; convulsions (20 sources) Partial epilepsy with impairment of consciousness; Translations: [Localization-related (focal) (partial) symptomatic epilepsy and epileptic syndromes with complex partial seizures, not intractable, without status epilepticus] Onset: 9 Chronic Esophageal disorders (18 sources) Gastroesophageal reflux disease; Translations: [Gastro-esophageal reflux disease without esophagitis] Onset: 5 09-04-2024 Chronic Fluid and electrolyte disorders (20 sources) Hypokalemia; Translations: [Hypokalemia] Onset: 7 12-21-2016 Episodic Malaise and fatigue (20 sources) Asthenia; Translations: [Weakness] 09-02-2023 Episodic Mood disorders (20 sources) Depressive disorder; Translations: [Depression] Onset: 5 11-06-2019 Chronic Mood disorders (1 source) Mood disorders; Translations: [Anxiety and depression] Onset: 9 Nausea and vomiting (20 sources) Postoperative nausea and vomiting; Translations: [Nausea with vomiting, unspecified] Onset: 5 01-10-2024 Episodic Nonspecific chest pain (2 sources) Chest pain; Translations: [Chest pain, unspecified] 11-21-2024 Episodic Nutritional deficiencies (20 sources) Deficiency of macronutrients; Translations: [Unspecified severe protein-calorie malnutrition] Onset: 9 Resolved: 0 05-03-2019 Chronic Open wounds of extremities (11 sources) Dog bite of hand; Translations: [Open bite of right hand, initial encounter] 08-24-2022 Episodic Osteoporosis (16 sources) Osteoporosis; Translations: [Age-related osteoporosis without current pathological fracture] 09-04-2024 Chronic Other aftercare (1 source) Drug therapy finding; Translations: [Encounter for therapeutic drug level monitoring] Episodic Other aftercare (20 sources) Patient encounter status; Translations: [Encounter for therapeutic drug level monitoring] Onset: 4 Resolved: 4 09-19-2023 Episodic Other aftercare (1 source) Aftercare following surgery for neoplasm; Translations: [Aftercare following surgery for neoplasm] Onset: 5 Episodic Other circulatory disease (9 sources) Low blood pressure; Translations: [Hypotension, unspecified] 09-02-2023 Episodic Other connective tissue disease (2 sources) History of operative procedure on shoulder; Translations: [Presence of unspecified artificial shoulder joint] Chronic Other connective tissue disease (1 source) Spasm; Translations: [Other muscle spasm] 09-16-2024 Episodic Other connective tissue disease (1 source) Other muscle spasm; Translations: [Muscle spasm] Onset: 5 Episodic Other fractures (2 sources) Closed fracture of rib; Translations: [Fracture of one rib, unspecified side, initial encounter for closed fracture] 11-21-2024 Episodic Other gastrointestinal disorders (2 sources) Irritable bowel syndrome; Translations: [Irritable bowel syndrome without diarrhea] Onset: 7 12-21-2016 Chronic Other gastrointestinal disorders (3 sources) Finding of abdominopelvic segment of trunk; Translations: [Intra-abdominal and pelvic swelling, mass and lump, unspecified site] 01-26-2024 Episodic Other gastrointestinal disorders (2 sources) Swelling; Translations: [Other intra-abdominal and pelvic swelling, mass and lump] 07-12-2024 Episodic Other gastrointestinal disorders (1 source) Drug-induced constipation; Translations: [Drug induced constipation] 09-19-2024 Episodic Other gastrointestinal disorders (1 source) Drug induced constipation; Translations: [Opioid-induced constipation] Onset: Episodic Other hereditary and degenerative nervous system conditions (1 source) Medication-induced postural tremor; Translations: [Drug-induced tremor] 10-26-2023 Chronic Other hereditary and degenerative nervous system conditions (1 source) Essential tremor; Translations: [Essential tremor] 12-18-2023 Chronic Other hereditary and degenerative nervous system conditions (1 source) Essential tremor; Translations: [Essential tremor] Onset: Chronic Other infections; including parasitic (2 sources) H/O: colitis; Translations: [Personal history of other infectious and parasitic diseases] 11-21-2024 Episodic Other lower respiratory disease (3 sources) Nodule of lung; Translations: [Solitary pulmonary nodule] 09-20-2023 Episodic Other lower respiratory disease (6 sources) Multiple nodules of lung; Translations: [Other nonspecific abnormal finding of lung field] 01-29-2024 Episodic Other nervous system disorders (20 sources) Pain due to neoplastic disease; Translations: [Neoplasm related pain (acute) (chronic)] Onset: 5 08-20-2024 Chronic Other nervous system disorders (2 sources) Neoplasm related pain (acute) (chronic); Translations: [Cancer related pain] Onset: Chronic Other nervous system disorders (1 source) Enhanced physiological tremor; Translations: [Tremor, unspecified] 12-18-2023 Episodic Other nervous system disorders (20 sources) Postoperative pain ; Translations: [Other acute postprocedural pain] Onset: 5 08-29-2024 Episodic Other non-traumatic joint disorders (1 source) Instability of joint of right knee; Translations: [Other instability, right knee] 09-16-2024 Episodic Other non-traumatic joint disorders (1 source) Other instability, right knee; Translations: [Knee buckling, right] Onset: 5 Episodic Other nutritional; endocrine; and metabolic disorders (13 sources) Hypomagnesemia; Translations: [Hypomagnesemia] 08-04-2020 Chronic Other nutritional; endocrine; and metabolic disorders (20 sources) Feeding problem; Translations: [Feeding difficulties] Onset: Resolved: 4 09-19-2023 Episodic Other nutritional; endocrine; and metabolic disorders (1 source) Weight loss; Translations: [Abnormal weight loss] 06-17-2024 Episodic Other nutritional; endocrine; and metabolic disorders (1 source) Weight decreased; Translations: [Abnormal weight loss] 06-25-2024 Episodic Other upper respiratory disease (2 sources) Seasonal allergy; Translations: [Other seasonal allergic rhinitis] Onset: 7 12-21-2016 Chronic Peritonitis and intestinal abscess (3 sources) Abdominal abscess; Translations: [Peritoneal abscess] 10-11-2023 Episodic Poisoning by other medications and drugs (9 sources) Sodium valproate adverse reaction; Translations: [Poisoning by other antiepileptic and sedative-hypnotic drugs, accidental (unintentional), initial encounter] 09-02-2023 Episodic Rehabilitation care; fitting of prostheses; and adjustment of devices (1 source) Follow-up status; Translations: [Encounter for fitting and adjustment of non-vascular catheter] 10-04-2023 Episodic Residual codes; unclassified (9 sources) Altered mental status; Translations: [Altered mental status, unspecified] 09-13-2023 Episodic Residual codes; unclassified (20 sources) Postoperative state; Translations: [Other specified postprocedural states] Onset: 5 08-28-2024 Episodic Screening and history of mental health and substance abuse codes (2 sources) Ex-tobacco user; Translations: [Personal history of nicotine dependence] 01-29-2024 Episodic Secondary malignancies (2 sources) Secondary malignant neoplasm of liver; 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] 11-18-2024 Chronic Secondary malignancies (1 source) Secondary malignant neoplasm of liver and intrahepatic bile duct; 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)] Onset: 5 Chronic Septicemia (except in labor) (9 sources) Sepsis; Translations: [Sepsis, unspecified organism] 09-13-2023 Episodic Shock (2 sources) Cardiogenic shock; Translations: [Cardiogenic shock] 11-21-2024 Episodic Thyroid disorders (2 sources) Hypothyroidism; Translations: [Hypothyroidism, unspecified] Onset: 4 12-18-2023 Chronic Unclassified (2 sources) Stool finding; Translations: [Other fecal abnormalities] Onset: 7 12-21-2016 Unclassified (2 sources) Autogenerated Problem Onset: 5 11-21-2024 Unclassified (1 source) Established Patient Onset: Past or Other Problems Problem Classification Problem Date Documented Da te Episodic/Chronic Deficiency and other anemia (20 sources) Iron deficiency anemia; Translations: [Iron deficiency anemia, unspecified] Onset: 01-28-2019 02-01-2019 Episodic Deficiency and other anemia (1 source) Other iron deficiency anemias; Translations: [Iron deficiency anemia secondary to inadequate dietary iron intake] Onset: 02-01-2019 Episodic Deficiency and other anemia (1 source) Anemia, unspecified; Translations: [Anemia, unspecified type] Onset: 08-14-2024 Episodic Deficiency and other anemia (1 source) Iron deficiency anemia, unspecified; Translations: [Iron deficiency anemia, unspecified iron deficiency anemia type] Onset: 02-01-2019 Episodic Diabetes mellitus without complication (1 source) Impaired fasting glucose; Translations: [IFG (impaired fasting glucose)] Onset: 08-14-2024 Episodic Epilepsy; convulsions (20 sources) Seizure; Translations: [Unspecified convulsions] Onset: 09-08-2023 09-13-2023 Episodic Headache; including migraine (20 sources) Migraine without aura; Translations: [Migraine without aura, not intractable, without status migrainosus] Onset: 05-03-2019 Resolved: 12-28-2023 05-03-2019 Chronic Intestinal obstruction without hernia (20 sources) Intestinal obstruction; Translations: [Unspecified intestinal obstruction, unspecified as to partial versus complete obstruction] Onset: 09-19-2023 Resolved: 09-25-2023 09-19-2023 Episodic Noninfectious gastroenteritis (20 sources) Non-specific colitis; Translations: [Noninfective gastroenteritis and colitis, unspecified] Onset: 09-09-2023 09-13-2023 Episodic Other aftercare (20 sources) Under care of palliative care physician; Translations: [Encounter for palliative care] Onset: 08-20-2024 08-20-2024 Episodic Other aftercare (1 source) Encounter for palliative care; Translations: [Palliative care by specialist] Onset: 08-20-2024 Episodic Other connective tissue disease (20 sources) Disorder of skeletal muscle; Translations: [Other symptoms and signs involving the musculoskeletal system] Onset: 09-08-2023 4 Episodic Other connective tissue disease (1 source) Other symptoms and signs involving the musculoskeletal system; Translations: [Muscular deconditioning] Onset: 09-09-2023 Episodic Other gastrointestinal disorders (20 sources) Disorder of colon; Translations: [Disease of intestine, unspecified] Onset: 09-10-2023 09-13-2023 Episodic Other gastrointestinal disorders (2 sources) Other intra-abdominal and pelvic swelling, mass and lump; Translations: [Other intra-abdominal and pelvic swelling, mass and lump] Onset: 07-24-2024 Episodic Other gastrointestinal disorders (1 source) Intra-abdominal and pelvic swelling, mass and lump, unspecified site; Translations: [Intra-abdominal and pelvic swelling, mass and lump, unspecified site] Onset: 01-26-2024 Episodic Other lower respiratory disease (1 source) Other nonspecific abnormal finding of lung field; Translations: [Lung nodules] Onset: 05-03-2024 Episodic Other lower respiratory disease (1 source) Solitary pulmonary nodule; Translations: [Lung nodule] Onset: 01-29-2024 Episodic Other nervous system disorders (20 sources) Abnormal gait; Translations: [Unspecified abnormalities of gait and mobility] Onset: 09-08-2023 09-09-2023 Episodic Other nervous system disorders (1 source) Other acute postprocedural pain; Translations: [Post-op pain] Onset: 01-03-2024 Episodic Other nutritional; endocrine; and metabolic disorders (20 sources) Loss of appetite; Translations: [Anorexia] Onset: 01-28-2019 Resolved: 05-03-2019 05-03-2019 Episodic Other nutritional; endocrine; and metabolic disorders (20 sources) Adult failure to thrive syndrome; Translations: [Adult failure to thrive] Onset: 09-08-2023 09-09-2023 Episodic Other nutritional; endocrine; and metabolic disorders (20 sources) Decreased body mass index; Translations: [Body mass index (BMI) 19.9 or less, adult] Onset: 08-14-2024 08-14-2024 Episodic Other nutritional; endocrine; and metabolic disorders (1 source) Adult failure to thrive; Translations: [Failure to thrive in adult] Onset: 09-09-2023 Episodic Other nutritional; endocrine; and metabolic disorders (1 source) Body mass index (BMI) 19.9 or less, adult; Translations: [BMI < 18.5] Onset: 08-14-2024 Episodic Other nutritional; endocrine; and metabolic disorders (1 source) Abnormal weight loss; Translations: [Weight loss] Onset: 06-25-2024 Episodic Other screening for suspected conditions (not mental disorders or infectious disease) (3 sources) Full blood count abnormal; Translations: [Other specified abnormal findings of blood chemistry] Onset: 12-19-2023 Episodic Residual codes; unclassified (20 sources) Current drinker; Translations: [Other specified health status] Onset: 01-28-2019 Resolved: 07-06-2021 07-06-2021 Episodic Residual codes; unclassified (20 sources) At risk of delirium; Translations: [Other specified personal risk factors, not elsewhere classified] Onset: 09-09-2023 09-09-2023 Episodic Unclassified (1 source) Finding of abdominopelvic segment of trunk 08-05-2024 Results Test Name Value Interpretation Reference Range Facility CBC panel Auto (Bld)on 11-23 Erythrocyte distribution width (RBC) [Ratio] 13.7 % Normal 11.5-15.0 [facility] Comment on above: Order Comment: Umesh baugh Type: BLOOD SPECIMEN Ordering Facility: [facility] Address: [address] [place] [address] Performed By: #### 5 8410-2 #### [facility] CLIA [id number] [address] [place] Hematocrit (Bld) [Volume fraction] 27.9 % Low 36.0-46.0 [facility] Comment on above: Order Comment: Umesh baugh Type: BLOOD SPECIMEN Ordering Facility: [facility] Address: [address] [place] [address] Performed By: #### 5 8410-2 #### [facility] CLIA [id number] [address] [place] [address] [place] Hemoglobin (Bld) [Mass/Vol] 9.3 g/dL Low 11.5-15.5 [facility] Comment on above: Order Comment: Umesh baugh Type: BLOOD SPECIMEN Ordering Facility: [facility] Address: [address] [place] [address] Performed By: #### 5 8410-2 #### [facility] CLIA [id number] [address] MCH (RBC) [Entitic mass] 29.4 pg Normal 26.0-34.0 [facility] Comment on above: Order Comment: Speci men Type: BLOOD SPECIMEN Ordering Facility: [facility] Address: [facility] [place] [address] Performed By: #### 5 8410-2 #### [facility] CLIA [id number] [address] MCHC (RBC) [Mass/Vol] 33.3 g/dL Normal 30.5-36.0 [facility] Comment on above: Order Comment: Speci men Type: BLOOD SPECIMEN Ordering Facility: [facility] Address: [address] [place] [address] Performed By: #### 5 8410-2 #### [facility] CLIA [id number] [address] MCV (RBC) [Entitic vol] 88.3 fL Normal 80.0-100.0 [facility] Comment on above: Order Comment: Speci men Type: BLOOD SPECIMEN Ordering Facility: [facility] Address: [address] [place] [address] Performed By: #### 5 8410-2 #### [facility] CLIA [id number] [address] Nucleated RBC (Bld) [#/Vol] 10*3/uL Normal <0.01 [facility] Comment on above: Order Comment: Speci men Type: BLOOD SPECIMEN Ordering Facility: [facility] Address: [address] [place] [address] Performed By: #### 5 8410-2 #### [facility] CLIA [id number] [address] [place] Platelet mean volume (Bld) [Entitic vol] 9.6 fL Normal 9.0-12.7 [facility] Comment on above: Order Comment: Speci men Type: BLOOD SPECIMEN Ordering Facility: [facility] Address: [address] [place] [address] Performed By: #### 5 8410-2 #### [facility] CLIA [id number] [address] Platelets (Bld) [#/Vol] 166 10*3/uL Normal 150-400 [facility] Comment on above: Order Comment: Speci men Type: BLOOD SPECIMEN Ordering Facility: [facility] Address: [address] [place] [address] Performed By: #### 5 8410-2 #### [facility] CLIA [id number] [address] RBC (Bld) [#/Vol] 3.16 10*6/uL Low 3.90-5.20 [facility] Comment on above: Order Comment: Speci men Type: BLOOD SPECIMEN Ordering Facility: [facility] Address: [address] [place] [address] Performed By: #### 5 8410-2 #### [facility] CLIA [id number] [address] WBC (Bld) [#/Vol] 2.61 10*3/uL Low 3.70-11.00 [facility] Comment on above: Order Comment: Speci men Type: BLOOD SPECIMEN Ordering Facility: [facility] Address: [address] [place] [address] Performed By: #### 5 8410-2 #### [facility] CLIA [id number] [address] CNDSon 11-23-2024 [facility] HNO ID: [id number] Author: PATEL GANDARA MD Service: Hospital Medicine Author Type: Physician Type: Discharge Summary Filed: 11/24/2024 06:55 Note Text: DISCHARGE SUMMARY PATIENT NAME: Lakesha Koch Code Status: Prior Highest Readmission Risk Score: 17 The 30 day readmissions risk score is derived from an internally validated risk model which evaluates patient level characteristics, utilization history, medication orders and lab results up until the day of discharge. Patients with a score of 39 or above are considered highest risk for readmission. Specific patient level drivers will be listed at the bottom of the summary. Date of admission: 11/21/2024 Date of discharge: 11/23/2024 Patient signed out AGAINST MEDICAL ADVICE HOSPITAL COURSE: Lakesha Koch is a64 year old year old female with past medical history of iron deficiency anemia, epilepsy, adenocarcinoma of the colon, and anorexia who is currently admitted under CVICU service for further workup of reported STEMI and reported Vfib arrest at [facility], with initial complaint of chest pain. Recently found new metastatic lesions to the liver, and had new chemotherapy initiated the day prior to presentation with chest pain. EKG concerning for anterior STEMI. Then reported tro develop Vfib arrest with compressions and cardioversion. Started on amio bolus and infusion and pulse returned. Reported to have transient afib on tele and started on dobutamine for suspected cardiogenic shock and sent to CVICU at [facility]. Taken immediately to [facility] with LHC and RHC performed which revealed normal coronary arteries and slightly reduced cardiac output. The following day dobutamine and amiodarone were both stopped and telemetry was monitored showing no concerns of arrhythmias. Has had sustained low blood pressures but these are her normal's and has been doing well with no elevations in lactate with MAP goal of 55-60. 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 Patient was started on low-dose metoprolol for suppression of future possible Takotsubo events. Transferred to general nursing floor on 11/22/2024. However, patient insisted on leaving AGAINST MEDICAL ADVICE almost immediately upon transfer to nursing floor. Patient was informed of the risks of leaving AGAINST MEDICAL ADVICE including worsening disease with risks of sudden cardiac and patient voiced understanding of these risks. Per staffing coordinator, patient left the unit at 2039 via wheelchair. V-fib arrest status post ACLS with reported ST elevation MS at outside hospital after being started on new chemotherapy (fluorouracil + oxaliplatin) on 11/19/24. Potassium 2.6 prior to infusion, replaced with 40mEq IV potassium on 11/19). Left heart catheterization on 11/21/2024 with normal left main, LAD, left circumflex, RCA. TTE on 11/21/2024 with mild LV dilatation hypokinetic inferior septum, inferior wall and posterior wall, LVEF 50%. Maintained on Metoprolol 12.5 mg twice daily as per EP/cardiology Metastatic colon cancer on 5-FU and oxaliplatin. No acute issues. Will follow-up with heme-onc. GERD, chronic, maintained on pantoprazole. Depression, chronic, will resume home sertraline and olanzapine upon discharge Patient had C. difficile about 3 weeks ago. No further diarrhea at this time. Malnutrition Diagnosis supported by Registered Dietitian:Mild Protein-Calorie Malnutrition (suspect is higher but unable to interview or perform NFPE) Based on: Unintentional Weight Loss Assessment: I have reviewed the result of the malnutrition assessment and plan and agree Plan: Diet, Supplements, Vitamin/Mineral Supplements, Labs Additional Provider to Provider Information: Treatment Team: Primary Service: KIMBERLY HOUSTON FINAL DIAGNOSIS: Active Hospital Problems Diagnosis POA STEMI (ST elevation myocardial infarction) (HCC) Yes VT (ventricular tachycardia) (HCC) Unknown History of ventricular fibrillation Unknown Resolved Hospital Problems No resolved problems to display. Transitions of Care Critical Issues: Patient left AGAINST MEDICAL ADVICE LABS AND PROCEDURES PENDING AT DISCHARGE: No pending results. 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 Normal [facility] NURSING PROGon 11-23-2024 NURSING PROG HNO ID: [id number] Author: STEPHON YE, RN Service: Nursing Author Type: Registered Nurse Type: Nursing Progress Note Filed: 11/23/2024 22:10 Note Text: I entered the patient room at 8:10pm she stated that I am leaving now and my ride is on the way. I informed the patient of the risk of leaving against medical advice and that no prescriptions would be given and patient voices understanding. Patient signed the release of responsibility and visitor arrived at bedside, Calli Alfaro and both signed the release of responsibility. Patient left the unit at 2039 via wheelchair with Calli. Shanice Bacon APRN notified of patient leaving AMA. Normal [facility] NURSING PROG HNO ID: [id number] Author: WALDEMAR LOPES, REAL Service: Nursing Author Type: Registered Nurse Type: Nursing Progress Note Filed: 11/23/2024 19:43 Note Text: Patient requesting to leave AMA. Discussed situation with Shanice Bacon, DAVID, [facility] physicians. Shanice spoke with the attending [facility] physician Dr. Patel Gandara. Per Dr. Gandara, patient to sign AMA form. No prescriptions to be called in. Normal [facility] Renal function 2000 panelon 11-23-2024 Albumin [Mass/Vol] 3.4 g/dL Low 3.9-4.9 [facility] Comment on above: Order Comment: Umesh baugh Type: BLOOD SPECIMEN Ordering Facility: [facility] Address: [address] [place] [address] Performed By: #### 1 9123-9, 2777-1, 35451-3 #### [facility] CLIA [id number] 1 [place] [address] [place] Anion gap [Moles/Vol] 11 mmol/L Normal 8-15 [facility] Comment on above: Order Comment: Umesh baugh Type: BLOOD SPECIMEN Ordering Facility: [facility] Address: [address] [place] [address] Performed By: #### 1 9123-9, 27709-24, 81903-3 #### [facility] CLIA [id number] 1 [place] [address] [place] Calcium [Mass/Vol] 8.4 mg/dL Low 8.5-10.2 [facility] Comment on above: Order Comment: Speci men Type: BLOOD SPECIMEN Ordering Facility: [facility] Address: [address] [place] [address] Performed By: #### 1 9123-9, 27709-24, 12648-4 #### [facility] CLIA [id number] 1 [place] [address] [place] Chloride [Moles/Vol] 97 mmol/L Low 98-107 [facility] Comment on above: Order Comment: Speci men Type: BLOOD SPECIMEN Ordering Facility: [facility] Address: [address] [place] [address] Performed By: #### 1 9123-9, 27709-24, 14491-4 #### [facility] CLIA [id number] [address] [place] CO2 [Moles/Vol] 26 mmol/L Normal 22-30 [facility] Comment on above: Order Comment: Speci men Type: BLOOD SPECIMEN Ordering Facility: [facility] Address: [address] [place] [address] Performed By: #### 1 9123-9, 27709-24, #### [facility] CLIA [id number] 1 [place] [address] [place] Creatinine [Mass/Vol] 0.60 mg/dL Normal 0.58-0.96 [facility] Comment on above: Order Comment: Speci men Type: BLOOD SPECIMEN Ordering Facility: [facility] Address: [address] [place] [address] Performed By: #### 1 9123-9, 27709-24, 41526-5 #### [facility] CLIA [id number] 1 [place] [address] [place] eGFRcr SerPlBld CKD-EPI 2020 100 mL/min/1.73m??? Normal >=60 [facility] Comment on above: Order Comment: Umesh baugh Type: BLOOD SPECIMEN Ordering Facility: [facility] Address: [address] [place] [address] Result Comment: Sana mated Glomerular Filtration Rate (eGFR) is calculated using the 2020 CKD-EPI creatinine equation. This equation utilizes serum creatinine, sex, and age as parameters. The creatinine assay has traceable calibration to isotope dilution-mass spectrometry. Refer to KDIGO guidelines for clinical interpretation. In patients with unstable renal function, e.g. those with acute kidney injury, the eGFR may not accurately reflect actual GFR. Performed By: #### 1 9123-9, 2777-1, 82443-7 #### [facility] CLIA [id number] 1 [place] [address] [place] Glucose [Mass/Vol] 102 mg/dL High 74-99 [facility] Comment on above: Order Comment: Umesh baugh Type: BLOOD SPECIMEN Ordering Facility: [facility] Address: [address] [place] [address] Result Comment: The [place] Diabetes Association (ADA) provides guidance for cutoff values for fasting glucose and random glucose. The ADA defines fasting as no caloric intake for at least 8 hours. Fasting plasma glucose results between 100 to 125 mg/dL indicate increased risk for diabetes (prediabetes). Fasting plasma glucose results greater than or equal to 126 mg/dL meet the criteria for diagnosis of diabetes. In the absence of unequivocal hyperglycemia, results should be confirmed by repeat testing. In a patient with classic symptoms of hyperglycemia or hyperglycemic crisis, random plasma glucose results greater than or equal to 200 mg/dL meet the criteria for diagnosis of diabetes. Reference: Standards of Medical Care in Diabetes 2016, [place] [employer] Association. Diabetes Care. 2016.39(Suppl 1). Performed By: #### 1 9123-9, 2777-1, 66450-3 #### [facility] CLIA [id number] 1 [place] [address] [place] Phosphate [Mass/Vol] 3.0 mg/dL Normal 2.7-4.8 [facility] Comment on above: Order Comment: Umesh baugh Type: BLOOD SPECIMEN Ordering Facility: [facility] Address: [address] [place] [address] Performed By: #### 1 9123-9, 2777-1, 61340-5 #### [facility] CLIA [id number] [address] [place] Potassium [Moles/Vol] 3.9 mmol/L Normal 3.7-5.1 [facility] Comment on above: Order Comment: Speci men Type: BLOOD SPECIMEN Ordering Facility: [facility] Address: [address] [place] [address] Performed By: #### 1 9123-9, 2771, 64792-8 #### [facility] CLIA [id number] [address] [place] Sodium [Moles/Vol] 134 mmol/L Low 136-144 [facility] Comment on above: Order Comment: Speci men Type: BLOOD SPECIMEN Ordering Facility: [facility] Address: [address] [place] [address] Performed By: #### 1 9123-9, 27709-24, 43516-0 #### [facility] CLIA [id number] [address] [place] Urea nitrogen [Mass/Vol] 12 mg/dL Normal 7-21 [facility] Comment on above: Order Comment: Speci men Type: BLOOD SPECIMEN Ordering Facility: [facility] Address: [address] [place] [address] Performed By: #### 1 9123-9, 27709-24, 37528-9 #### [facility] CLIA [id number] 1 [place] [address] [place] Basic metabolic 2000 panelon 11-22-2024 Anion gap [Moles/Vol] 10 mmol/L Normal 8-15 [facility] Comment on above: Order Comment: Speci men Type: BLOOD SPECIMEN Ordering Facility: [facility] Address: [address] [place] [address] Performed By: #### 1 9123-9, 2777-1, 46941-4 #### [facility] CLIA [id number] 1 [place] [address] [place] Calcium [Mass/Vol] 8.5 mg/dL Normal 8.5-10.2 [facility] Comment on above: Order Comment: Speci men Type: BLOOD SPECIMEN Ordering Facility: [facility] Address: [address] [place] [address] Performed By: #### 1 9123-9, 2777-1, 39236-2 #### [facility] CLIA [id number] 1 [place] [address] [place] Chloride [Moles/Vol] 105 mmol/L Normal 98-107 [facility] Comment on above: Order Comment: Speci men Type: BLOOD SPECIMEN Ordering Facility: [facility] Address: [address] [place] [address] Performed By: #### 1 9123-9, 2777-1, 99881-4 #### [facility] CLIA [id number] [address] [place] [facility] CO2 [Moles/Vol] 24 mmol/L Normal 22-30 [facility] Comment on above: Order Comment: Speci men Type: BLOOD SPECIMEN Ordering Facility: [facility] Address: [address] [place] [address] Performed By: #### 1 9123-9, 27771, 82061-2 #### [facility] CLIA [id number] [address] [place] Creatinine [Mass/Vol] 0.66 mg/dL Normal 0.58-0.96 [facility] Comment on above: Order Comment: Speci men Type: BLOOD SPECIMEN Ordering Facility: [facility] Address: [address] [place] [address] Performed By: #### 1 9123-9, 2777-1, 99394-2 #### [facility] CLIA [id number] 1 [place] [address] [place] eGFRcr SerPlBld CKD-EPI 2020 97 mL/min/1.73m??? Normal >=60 [facility] Comment on above: Order Comment: Umesh baugh Type: BLOOD SPECIMEN Ordering Facility: [facility] Address: [address] [place] [address] Result Comment: Sana mated Glomerular Filtration Rate (eGFR) is calculated using the 2020 CKD-EPI creatinine equation. This equation utilizes serum creatinine, sex, and age as parameters. The creatinine assay has traceable calibration to isotope dilution-mass spectrometry. Refer to KDIGO guidelines for clinical interpretation. In patients with unstable renal function, e.g. those with acute kidney injury, the eGFR may not accurately reflect actual GFR. Performed By: #### 1 9123-9, 2777-1, 76163-1 #### [facility] CLIA [id number] 1 [place] [address] [place] Glucose [Mass/Vol] 109 mg/dL High 74-99 [facility] Comment on above: Order Comment: Umesh baugh Type: BLOOD SPECIMEN Ordering Facility: [facility] Address: [address] [place] [address] Result Comment: The [place] Diabetes Association (ADA) provides guidance for cutoff values for fasting glucose and random glucose. The ADA defines fasting as no caloric intake for at least 8 hours. Fasting plasma glucose results between 100 to 125 mg/dL indicate increased risk for diabetes (prediabetes). Fasting plasma glucose results greater than or equal to 126 mg/dL meet the criteria for diagnosis of diabetes. In the absence of unequivocal hyperglycemia, results should be confirmed by repeat testing. In a patient with classic symptoms of hyperglycemia or hyperglycemic crisis, random plasma glucose results greater than or equal to 200 mg/dL meet the criteria for diagnosis of diabetes. Reference: Standards of Medical Care in Diabetes 2016, [place] [employer]. Diabetes Care. 2016.39(Suppl 1). Performed By: #### 1 9123-9, 2777-1, 60765-0 #### [facility] CLIA [id number] 1 [place] [address] [place] Potassium [Moles/Vol] 3.9 mmol/L Normal 3.7-5.1 [facility] Comment on above: Order Comment: Umesh baugh Type: BLOOD SPECIMEN Ordering Facility: [facility] Address: [address] [place] [address] Performed By: #### 1 9123-9, 2777-1, 77392-4 #### [facility] CLIA [id number] [address] [place] Sodium [Moles/Vol] 139 mmol/L Normal 136-144 [facility] Comment on above: Order Comment: Speci men Type: BLOOD SPECIMEN Ordering Facility: [facility] Address: [address] [place] [address] Performed By: #### 1 9123-9, 2777-, 45910-3 #### [facility] CLIA [id number] [address] [place] Urea nitrogen [Mass/Vol] 12 mg/dL Normal 7-21 [facility] Comment on above: Order Comment: Speci men Type: BLOOD SPECIMEN Ordering Facility: [facility] Address: [address] [place] [address] Performed By: #### 1 9123-9, 2777, 55691-4 #### [facility] CLIA [id number] [address] [place] CBC panel Auto (Bld)on 11-22 Erythrocyte distribution width (RBC) [Ratio] 14.4 % Normal 11.5-15.0 [facility] Comment on above: Order Comment: Speci men Type: BLOOD SPECIMEN Ordering Facility: [facility] Address: [address] [place] [address] Performed By: #### 5 8410-2 #### [facility] CLIA [id number] [address] [place] [address] [place] Hematocrit (Bld) [Volume fraction] 26.9 % Low 36.0-46.0 [facility] Comment on above: Order Comment: Speci men Type: BLOOD SPECIMEN Ordering Facility: [facility] Address: [address] [place] [address] Performed By: #### 5 8410-2 #### [facility] CLIA [id number] [address] [place] Hemoglobin (Bld) [Mass/Vol] 9.2 g/dL Low 11.5-15.5 [facility] Comment on above: Order Comment: Speci men Type: BLOOD SPECIMEN Ordering Facility: [facility] Address: [address] [place] [address] Performed By: #### 5 8410-2 #### [facility] CLIA [id number] [address] MCH (RBC) [Entitic mass] 30.0 pg Normal 26.0-34.0 [facility] Comment on above: Order Comment: Speci men Type: BLOOD SPECIMEN Ordering Facility: [facility] Address: [address] [place] [address] Performed By: #### 5 8410-2 #### [facility] CLIA [id number] [address] MCHC (RBC) [Mass/Vol] 34.2 g/dL Normal 30.5-36.0 [facility] Comment on above: Order Comment: Speci men Type: BLOOD SPECIMEN Ordering Facility: [facility] Address: [address] [place] [address] Performed By: #### 5 8410-2 #### [facility] CLIA [id number] [address] MCV (RBC) [Entitic vol] 87.6 fL Normal 80.0-100.0 [facility] Comment on above: Order Comment: Speci men Type: BLOOD SPECIMEN Ordering Facility: [facility] Address: [address] [place] [address] Performed By: #### 5 8410-2 #### [facility] CLIA [id number] [address] Nucleated RBC (Bld) [#/Vol] 10*3/uL Normal <0.01 [facility] Comment on above: Order Comment: Speci men Type: BLOOD SPECIMEN Ordering Facility: [facility] Address: [address] [place] [address] Performed By: #### 5 8410-2 #### [facility] CLIA [id number] [address] [place] Platelet mean volume (Bld) [Entitic vol] 9.2 fL Normal 9.0-12.7 [facility] Comment on above: Order Comment: Speci men Type: BLOOD SPECIMEN Ordering Facility: [facility] Address: [address] [place] [address] Performed By: #### 5 8410-2 #### [facility] CLIA [id number] [address] [place] Platelets (Bld) [#/Vol] 166 10*3/uL Normal 150-400 [facility] Comment on above: Order Comment: Speci men Type: BLOOD SPECIMEN Ordering Facility: [facility] Address: [address] [place] [address] Performed By: #### 5 8410-2 #### [facility] CLIA [id number] [address] [place] RBC (Bld) [#/Vol] 3.07 10*6/uL Low 3.90-5.20 [facility] Comment on above: Order Comment: Speci men Type: BLOOD SPECIMEN Ordering Facility: [facility] Address: [address] [place] [address] Performed By: #### 5 8410-2 #### [facility] CLIA [id number] [address] [place] WBC (Bld) [#/Vol] 2.24 10*3/uL Low 3.70-11.00 [facility] Comment on above: Order Comment: Speci men Type: BLOOD SPECIMEN Ordering Facility: [facility] Address: [address] [place] [address] Performed By: #### 5 8410-2 #### [facility] CLIA [id number] [address] CONSULTon 11-22-2024 CONSULT HNO ID: [id number] Author: KAL HUNTER MD Service: Cardiovascular Medicine Author Type: Physician Type: Consults Filed: 11/22/2024 15:18 Note Text: ELECTROPHYSIOLOGY CONSULT HANDP PATIENT NAME: Lakesha Koch DATE: November 22, 2024 ADMITTED FOR: Cardiac arrhythmias Subjective HPI Patient is a 64 year old year old female with past medical history of iron deficiency anemia, epilepsy, adenocarcinoma of the colon, and anorexia who is currently admitted under CVICU service for further workup of reported STEMI and reported Vfib arrest. Per chart review from [facility], patient arrived at the ED and complained of chest pain on and off since 9:30 AM on 11/20/2024. The symptoms lasted approximately 30 minutes and she rated her chest pain as high as an 8 out of 10. She had no shortness of breath, no nausea, no arm pain, no diaphoresis. She had 3 additional episodes of 30-minute chest pain at 1 PM and 5 PM and 9 PM the same day. She does not have any cardiac history, has never had a heart cath. She apparently was seen and admitted to the hospital for new metastatic lesions to the liver, and had new chemotherapy initiated the day prior to presentation with chest pain. Vital signs upon presentation to the ER showed blood pressure of 94/58, 100% oxygen saturation on room air, heart rate of 92. Initial EKG was read as sinus rhythm with rate of 110, ST elevation in the lateral leads with no depressions, T wave inversions in V1, V2. This EKG was apparently reviewed by the ED attending and cardiology. Patient was made a prehospital STEMI alert prior to presentation, but this STEMI alert was canceled upon reviewing the initial EKG. At approximately 11:30 PM on 11/20/2024, patient complained of another episode of 8 out of 10 chest pain. Her heart rate was 130, she had hypotension with a systolic of 79 which responded to fluids and was systolic of 112. Troponin was 91. Repeat EKG showed more broadening T waves in the anterior leads, and that elevations in the lateral leads were worsened. Cath team was contacted and plan was to take patient for cardiac cath. It was reported that ER physician was called back in the patient's room for heart rate of 190, and when they presented into the room V-fib arrest noted on the monitor compressions were started at that time, cardioversion 2 J initiated and CPR continued. Patient was given 300 mg of amiodarone IV. Additional epinephrine was given. On pulse check persistent V-fib, additional cardioversion performed, and another 150 mg IV amiodarone given. Next pulse check, patient had an organized rhythm and pulse. She was responsive therefore held off intubation. manager monitoring after this showed transient atrial fibrillation with apparent blood pressure dropping into the 70s systolic. Cardio genic shock was suspected and dopamine drip was ordered. Children'S Service Worker also recommended 180 mg of Brilinta, heparin drip was started at outside hospital. Lowest documented blood pressure at the outside hospital was 79/49. No EKG or telemetry strips were provided by outside hospital. In the ED patient received 500 cc LVB, K 40mEq, aspirin, brilinta, nitro drip, fentanyl once, dopamine, and heparin drip. Patient was taken immediately to [facility] where LHC and RHC were done. PAST MEDICAL HISTORY Diagnosis Date Anemia Anorexia nervosa (HCC) Bowel wall thickening Colon cancer (HCC) Daily consumption of alcohol Depression Essential tremor Failure to thrive in adult Feeding difficulties Focal epilepsy (HCC) Gait abnormality Inflammation of colonic mucosa Intestinal obstruction (HCC) Migraine Migraine without aura 05/03/2019 Muscular deconditioning Perforated 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 with localized peritonitis, gangrene and abscess Psoas abscess, right (HCC) Seizures (HCC) Severe protein-calorie malnutrition (HCC) PAST SURGICAL HISTORY Procedure Laterality Date APPENDECTOMY 01/03/2024 COLONOSCOPY DIAGNOSTIC polyp EXPLORATORY OF ABDOMEN 09/19/2023 ROCIO DRAIN TO BULB SUCTION 09/01/2023 for acute 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 with perforation, localized peritonitis, and gangrene. FAMILY HISTORY Problem Relation Age of Onset Lung Cancer Mother Prostate Cancer Father Melanoma Sister No Known Problems Sister No Known Problems Sister No Known Problems Brother No Known Problems Brother No Known Problems Maternal Grandmother No Known Problems Maternal Grandfather Breast Cancer Paternal Grandmother No Known Problems Paternal Grandfather Anesthesia Problems No Family History Colon Cancer No Family History SOCIAL HISTORY[1] No current facility-administered medications on file prior to encounter. Current Outpatient Medications on File Prior to Encounter Medication Sig oxyCODONE IR (ROXICODONE) 5 mg immediate release tablet Take 1 tablet by mouth every 6 hours as needed for pain for up to 7 days. diazePAM (VALIUM) 5 mg tablet Take (more content not included)... Normal [facility] Magnesium [facility] 11-22 Magnesium [Mass/Vol] 1.7 mg/dL Normal 1.7-2.3 [facility] Comment on above: Order Comment: Speci men Type: BLOOD SPECIMEN Ordering Facility: [facility] Address: [facility] [place] [address] Performed By: #### 1 9123-9, 2777-1, 84633-2 #### [facility] CLIA [id number] 1 [place] [address] [place] NURSING PROGon 11-22-2024 NURSING PROG HNO ID: [id number] Author: KAIT NUNN, REAL Service: Nursing Author Type: Registered Nurse Type: Nursing Progress Note Filed: 11/22/2024 19:37 Note Text: Transfer Note: PATIENT NAME: Lakesha Koch Patient Location: [place] [id number] Room: [place] [address] Patient transferred out to room/unit 3241 in stable condition. Actions taken: Report given/called to [facility]. Normal [facility] NUTRITIONon 11-22-2024 NUTRITION HNO ID: [id number] Author: VENECIA REED RD Service: Nutrition Therapy Author Type: Registered Dietitian Type: Nutrition Filed: 11/22/2024 15:36 Note Text: NUTRITION THERAPY INITIAL ASSESSMENT SERVICE DATE: 11/22/2024 SERVICE TIME: Nutrition Assessment: Recommended Malnutrition Diagnosis: Mild Protein-Calorie Malnutrition (suspect is higher but unable to interview or perform NFPE) In the context of: Chronic Illness or Injury Based on: Unintentional Weight Loss Nutrition Diagnosis: Problem: Unintended weight loss Related to: Chronic illness As evidenced by: Medical condition, Weight loss Care Plan: Continue current diet Supplements: Ensure Plus High Protein (TID adjusted to Ensure Plus due is more calories than Ensure Max ordered TID by DO.) Vitamins and Minerals: Multivitamin with minerals, Iron Labs: Phosphorus, Potassium, Magnesium (continue to monitor and replete as needed) Monitor and Evaluation: Meet greater than 75% of estimated needs, Monitor fluid/electrolyte balance, Monitor bowel function, Monitor labs, I/Os, vital signs, weight HPI: 64 year old female presented for evaluation of further workup of reported STEMI and reported Vfib arrest. Patient is a transfer from [facility]. Recent C.difficile infection. S/p LHC and RHC done on 11/21/24 with findings of LAD normal, RCA normal, and no interventions done. Electrophysiology consulted for input regarding reported arrhythmias. PMH includes colon cancer on chemotherapy Intake History: Nutrition Intake Prior to Admission: Unable to determine Current Nutrition Intake: Unable to determine Dosing Weight: 38.6 kg (85 lb 1.6 oz) Dosing Weight Type: (wt taken at MD visit 11/18/24.) Estimated kilocalorie needs: 8295-5504 Calorie Calculation Method: 30-35 kcals/kg Estimated protein needs (grams): 58-77 Grams protein determined by: 1.5 - 2.0 g/kg Diet Orders (From admission, onward) Start Ordered 11/21/24 1130 DIET SUPPLEMENTS START NOW Question Answer Comment Supplement 1 ENSURE MAX CHOCOLATE Supplement 1 Frequency THREE TIMES/DAY WITH MEALS 11/21/24 1127 11/21/24 0400 DIET HEART HEALTHY START NOW Question: Heart Healthy Answer: 2 GM SODIUM (LOW SAT FAT) 11/21/24 0348 Anthropometrics: Height: 160 cm (5' 3) Weight: 42 kg (92 lb 9.5 oz) Usual Weight: (92-94 lbs) 08/14/2024 Usual Weight Obtained From: Chart Review Body mass index is 16.4 kg/m?. Weight change percentage over time: 5.4% wt loss from 11/06/24- 11/18/24 almost 2 weeks. suspect bed weight taken of 42.0 kg is inaccurate. Weight Change: Clinically significant weight loss Last Wt 11/21/24 : 42 kg (92 lb 9.5 oz) bed suspect is inaccurate 11/18/24 : 38.6 kg (85 lb) hematology/oncology visit 11/18/24 : 38.6 kg (85 lb) infusion center 11/06/24 : 40.8 kg (90 lb) infusion center 11/05/24 : 41.1 kg (90 lb 8 oz) 10/21/24 : 40.7 kg (89 lb 12.8 oz) 10/10/24 : 40.6 kg (89 lb 8 oz) 09/25/24 : 39.9 kg (88 lb) 09/16/24 : 39 kg (85 lb 15.7 oz) 09/02/24 : 44.7 kg (98 lb 8.7 oz) 08/19/24 : 40.2 kg (88 lb 10 oz) 08/14/24 : 42.2 kg (93 lb) 08/05/24 : 42.6 kg (94 lb) 07/31/24 : 42.6 kg (94 lb) 07/19/24 : 44.2 kg (97 lb 8 oz) 06/17/24 : 41.1 kg (90 lb 8 oz) 06/26/24 : 41.1 kg (90 lb 9.7 oz) 05/13/24 : 43.2 kg (95 lb 3.2 oz) 05/06/24 : 42.4 kg (93 lb 8 oz) 04/16/24 : 41.7 kg (92 lb) Physical Exam: Reason NFPE not performed: Unable to participate Potential micronutrient deficiency: Unable to determine at this time Edema/Ascites: No edema (per clinical documentation) GI Symptoms: Early satiety (per score of one on MST screen for poor po intake/appetite.) Functional Status: Unable to assess Potential Signs of Inflammation: Chronic condition, Leukopenia, Tachycardia, Microbiologic cultures, Hyperglycemia, High CRP colon cancer, anemia, epilepsy Lines, Drains, and Airways None MNT Billing: $ Routine Care : 1 unit SIGNATURE: Venecia Reed RD PATIENT NAME: Lakesha Koch DATE: November 22, 2024 TIME: 11:18 AM Normal [facility] Phosphate SerPl-mCncon 11-22 Phosphate [Mass/Vol] 2.0 mg/dL Low 2.7-4.8 [facility] Comment on above: Order Comment: Speci men Type: BLOOD SPECIMEN Ordering Facility: [facility] Address: [address] [place] [address] Performed By: #### 1 9123-9, 2777-1, 06686-7 #### [facility] CLIA [id number] [address] OF [facility] ALLIED HEALTHon 11-21-2024 ALLIED HEALTH HNO ID: [id number] Author: ?, ?, ? Service: Infection Prevention Author Type: ? Type: Allied Health Filed: 11/21/2024 12:45 Note Text: ISOLATION NOTE Admission Date: 11/21/2024 Type of Isolation Recommended: Contact Precautions - Soap and Water (Brown Isolation Sign) Indication: Clostridium difficile Date Isolation Initiated: 11/21/2024 Anticipated Duration of Isolation: ?Minimum of 14 days post positive C.difficile toxin PCR test (regardless of treatment or EIA test result) ?Resolution of diarrhea (e.g., formed stool, no stool, or ostomy output back to normal) for at least 3 consecutive days ?Patient is continent of stool ?Patient is capable of hand washing with soap and water after toileting Type and Date of Positive Test(s): Positive for C. difficile toxin per [facility] encounter note 11/08/2024. SIGNATURE: Arleth Stafford PATIENT NAME: Lakesha Koch DATE: November 21, 2024 TIME: 12:43 PM PAGER/CONTACT #: Infection Prevention, [id number] Infection Prevention after hours/weekend pager: [phone] Normal [facility] BRIEF OP NOTon 11-21-2024 BRIEF OP NOT HNO ID: [id number] Author: KY GONZALEZ MD Service: Cardiovascular Medicine Author Type: Physician Type: Brief Op Note Filed: 11/21/2024 03:46 Note Text: Brief Cath note: Indications: Inferolateral STEMI, shock Access: 6Fr. Right femoral artery, 5Fr. Right femoral vein Closure: Perclose Findings: Left main Normal LAD Normal LCx Normal RCA Normal LVEDP:23mmHg PA 35/20mmHg, mean 26mmHg RA 10mmHg PCWP 18mmHg Cardiac output 3.2L/min Impressions: Normal coronary angiogram No pulmonary HTN Borderline low cardiac output Recommend: Continue conservative management Ky Niño MD Director Of Content Marketing of Internal Medicine [facility] Regional Section of Interventional Cardiology [employer] Structural Heart Disease [address], [address] [place] [address] Facsimile: [phone] Email: [email or web address] Normal [facility] Basic metabolic 2000 panelon 11-21-2024 Anion gap [Moles/Vol] 10 mmol/L Normal 8- [facility] Comment on above: Order Comment: Speci men Type: BLOOD SPECIMEN Ordering Facility: [facility] Address: [address] [place] [address] Performed By: #### 1 9123-9, 27709-24, 65445-2 #### [facility] CLIA [id number] [address] [place] Calcium [Mass/Vol] 8.4 mg/dL Low 8.5-10.2 [facility] Comment on above: Order Comment: Speci men Type: BLOOD SPECIMEN Ordering Facility: [facility] Address: [address] [place] [address] Performed By: #### 1 9123-9, 2776-03, 76020-3 #### [facility] CLIA [id number] 1 [place] [address] [place] Chloride [Moles/Vol] 108 mmol/L High 98-107 [facility] Comment on above: Order Comment: Speci men Type: BLOOD SPECIMEN Ordering Facility: [facility] Address: [address] [place] [address] Performed By: #### 1 9123-9, 2776-03, #### [facility] CLIA [id number] 1 [place] [address] [place] CO2 [Moles/Vol] 22 mmol/L Normal 22-30 [facility] Comment on above: Order Comment: Speci men Type: BLOOD SPECIMEN Ordering Facility: [facility] Address: [address] [place] [address] Performed By: #### 1 9123-9, 2776-03, 28259-3 #### [facility] CLIA [id number] 1 [place] [address] [place] Creatinine [Mass/Vol] 0.67 mg/dL Normal 0.58-0.96 [facility] Comment on above: Order Comment: Speci men Type: BLOOD SPECIMEN Ordering Facility: [facility] Address: [address] [place] [address] Performed By: #### 1 9123-9, 27709-24, 84743-0 #### [facility] CLIA [id number] 1 [place] [address] [place] eGFRcr SerPlBld CKD-EPI 2020 97 mL/min/1.73m??? Normal >=60 [facility] Comment on above: Order Comment: Umesh baugh Type: BLOOD SPECIMEN Ordering Facility: [facility] Address: [address] [place] [address] Result Comment: Sana mated Glomerular Filtration Rate (eGFR) is calculated using the 2020 CKD-EPI creatinine equation. This equation utilizes serum creatinine, sex, and age as parameters. The creatinine assay has traceable calibration to isotope dilution-mass spectrometry. Refer to KDIGO guidelines for clinical interpretation. In patients with unstable renal function, e.g. those with acute kidney injury, the eGFR may not accurately reflect actual GFR. Performed By: #### 1 9123-9, 2777-1, 62573-6 #### [facility] CLIA [id number] 1 [place] [address] [place] Glucose [Mass/Vol] 113 mg/dL High 74-99 [facility] Comment on above: Order Comment: Umesh baugh Type: BLOOD SPECIMEN Ordering Facility: [facility] Address: [address] [place] [address] Result Comment: The [place] Diabetes Association (ADA) provides guidance for cutoff values for fasting glucose and random glucose. The ADA defines fasting as no caloric intake for at least 8 hours. Fasting plasma glucose results between 100 to 125 mg/dL indicate increased risk for diabetes (prediabetes). Fasting plasma glucose results greater than or equal to 126 mg/dL meet the criteria for diagnosis of diabetes. In the absence of unequivocal hyperglycemia, results should be confirmed by repeat testing. In a patient with classic symptoms of hyperglycemia or hyperglycemic crisis, random plasma glucose results greater than or equal to 200 mg/dL meet the criteria for diagnosis of diabetes. Reference: Standards of Medical Care in Diabetes 2016, [place] [employer] Association. Diabetes Care. 2016.39(Suppl 1). Performed By: #### 1 9123-9, 2777-1, 74731-2 #### [facility] CLIA [id number] 1 [place] [address] [place] Potassium [Moles/Vol] 4.4 mmol/L Normal 3.7-5.1 [facility] Comment on above: Order Comment: Speci men Type: BLOOD SPECIMEN Ordering Facility: [facility] Address: [address] [place] [address] Performed By: #### 1 9123-9, 2777-1, 02773-8 #### [facility] CLIA [id number] [address] [place] Sodium [Moles/Vol] 140 mmol/L Normal 136-144 [facility] Comment on above: Order Comment: Speci men Type: BLOOD SPECIMEN Ordering Facility: [facility] Address: [address] [place] [address] Performed By: #### 1 9123-9, 2777-, 82786-4 #### [facility] CLIA [id number] [address] [place] [address] [place] Urea nitrogen [Mass/Vol] 15 mg/dL Normal 7-21 [facility] Comment on above: Order Comment: Speci men Type: BLOOD SPECIMEN Ordering Facility: [facility] Address: [address] [place] [address] Performed By: #### 1 9123-9, 2777-, 88572-7 #### [facility] CLIA [id number] [address] [place] [address] [place] CBC W Auto Differential pane l (Bld)on 11-21-2024 Basophils (Bld) [#/Vol] 10*3/uL Normal <0.11 [facility] Comment on above: Order Comment: Speci men Type: BLOOD SPECIMEN Ordering Facility: [facility] Address: [address] [place] [address] Performed By: #### 4 537-7 #### [facility] CLIA [id number] [address] [place] [address] [place] Basophils/100 WBC (Bld) 0.4 % Normal [facility] Comment on above: Order Comment: Speci men Type: BLOOD SPECIMEN Ordering Facility: [facility] Address: [address] [place] [address] Performed By: #### 4 537-7 #### [facility] CLIA [id number] [address] [place] [address] [place] Differential cell count method Nom (Bld) Auto Normal [facility] Comment on above: Order Comment: Speci men Type: BLOOD SPECIMEN Ordering Facility: [facility] Address: [address] [place] [address] Performed By: #### 4 537-7 #### [facility] CLIA [id number] [address] [place] [address] [place] Eosinophils (Bld) [#/Vol] 10*3/uL Normal <0.46 [facility] Comment on above: Order Comment: Speci men Type: BLOOD SPECIMEN Ordering Facility: [facility] Address: [address] [place] [address] Performed By: #### 4 537-7 #### [facility] CLIA [id number] [address] [place] [address] [place] Eosinophils/100 WBC (Bld) 0.0 % Normal [facility] Comment on above: Order Comment: Speci men Type: BLOOD SPECIMEN Ordering Facility: [facility] Address: [address] [place] [address] Performed By: #### 4 537-7 #### [facility] CLIA [id number] [address] [place] [address] [place] Immature granulocytes (Bld) [#/Vol] 10*3/uL Normal <0.10 [facility] Comment on above: Order Comment: Speci men Type: BLOOD SPECIMEN Ordering Facility: [facility] Address: [address] [place] [address] Performed By: #### 4 537-7 #### [facility] CLIA [id number] [address] [place] [address] [place] Immature granulocytes/100 WBC (Bld) 0.4 % Normal [facility] Comment on above: Order Comment: Speci men Type: BLOOD SPECIMEN Ordering Facility: [facility] Address: [address] [place] [address] Performed By: #### 4 537-7 #### [facility] CLIA [id number] [address] [place] [address] [place] Lymphocytes (Bld) [#/Vol] 0.75 10*3/uL Low 1.00-4.00 [facility] Comment on above: Order Comment: Speci men Type: BLOOD SPECIMEN Ordering Facility: [facility] Address: [address] [place] [address] Performed By: #### 4 537-7 #### [facility] CLIA [id number] [address] [place] [address] [place] Lymphocytes/100 WBC (Bld) 16.1 % Normal [facility] Comment on above: Order Comment: Speci men Type: BLOOD SPECIMEN Ordering Facility: [facility] Address: [address] [place] [address] Performed By: #### 4 537-7 #### [facility] CLIA [id number] [address] [place] [address] [place] Monocytes (Bld) [#/Vol] 0.38 10*3/uL Normal <0.87 [facility] Comment on above: Order Comment: Speci men Type: BLOOD SPECIMEN Ordering Facility: [facility] Address: [address] [place] [address] Performed By: #### 4 537-7 #### [facility] CLIA [id number] [address] [place] [address] [place] Monocytes/100 WBC (Bld) 8.2 % Normal [facility] Comment on above: Order Comment: Speci men Type: BLOOD SPECIMEN Ordering Facility: [facility] Address: [address] [place] [address] Performed By: #### 4 537-7 #### [facility] CLIA [id number] [address] [place] [address] [place] Neutrophils (Bld) [#/Vol] 3.48 10*3/uL Normal 1.45-7.50 [facility] Comment on above: Order Comment: Speci men Type: BLOOD SPECIMEN Ordering Facility: [facility] Address: [address] [place] [address] Performed By: #### 4 537-7 #### [facility] CLIA [id number] [address] [place] [address] [place] Neutrophils/100 WBC (Bld) 74.9 % Normal [facility] Comment on above: Order Comment: Speci men Type: BLOOD SPECIMEN Ordering Facility: [facility] Address: [address] [place] [address] Performed By: #### 4 537-7 #### [facility] CLIA [id number] [address] [place] [address] [place] CBC W/Diff, Automatedon 08-2 Absolute Neut Normal 2.0-7.7 [facility] Comment on above: Result Comment: Canc elled via OM: Order cancelled - Patient discharged Performed By: #### L 499.0042 #### [facility] [address] [place], [place], [address] (584 HCT Normal 37-47 [facility] Comment on above: Result Comment: Canc elled via OM: Order cancelled - Patient discharged Performed By: #### L 499.0042 #### [facility] [address] [facility] [address] HGB Normal 12.0-15.0 [facility] Comment on above: Result Comment: Canc elled via OM: Order cancelled - Patient discharged Performed By: #### L 499.0042 #### [facility] [address] [place], [address] MCH Normal 27.0-32.0 [facility] Comment on above: Result Comment: Canc elled via OM: Order cancelled - Patient discharged Performed By: #### L 499.0042 #### [facility] [address] [place], [address] MCHC Normal 32-36 [facility] Comment on above: Result Comment: Canc elled via OM: Order cancelled - Patient discharged Performed By: #### L 499.0042 #### [facility] [address] [place], [address] MCV Normal 81-99 [facility] Comment on above: Result Comment: Canc elled via OM: Order cancelled - Patient discharged Performed By: #### L 499.0042 #### [facility] [address] [place], [address] NEUT% Normal 47-70 [facility] Comment on above: Result Comment: Canc elled via OM: Order cancelled - Patient discharged Performed By: #### L 499.0042 #### [facility] [address] [place], [address] PLT Normal 150-450 [facility] Comment on above: Result Comment: Canc elled via OM: Order cancelled - Patient discharged Performed By: #### L 499.0042 #### [facility] [address] [place], [address] RBC Normal 4.2-5.4 [facility] Comment on above: Result Comment: Canc elled via OM: Order cancelled - Patient discharged Performed By: #### L 499.0042 #### [facility] [address] [place], [address] RDW CV Normal 11.6-14.6 [facility] Comment on above: Result Comment: Canc elled via OM: Order cancelled - Patient discharged Performed By: #### L 499.0042 #### [facility] [address] [place], [address] RDW SD Normal 35.1-43.9 [facility] Comment on above: Result Comment: Canc elled via OM: Order cancelled - Patient discharged Performed By: #### L 499.0042 #### [facility] [address] [place], [address] WBC Normal 4.4-11.0 [facility] Comment on above: Result Comment: Canc elled via OM: Order cancelled - Patient discharged Performed By: #### L 499.0042 #### [facility] [address] [place], [address] CBC panel Auto (Bld)on 11-21 Erythrocyte distribution width (RBC) [Ratio] 14.6 % Normal 11.5-15.0 [facility] Comment on above: Order Comment: Speci men Type: BLOOD SPECIMEN Ordering Facility: [facility] Address: [address] [place] [address] Performed By: #### 4 537-7 #### [facility] CLIA [id number] [address] [place] [address] [place] Hematocrit (Bld) [Volume fraction] 30.3 % Low 36.0-46.0 [facility] Comment on above: Order Comment: Speci men Type: BLOOD SPECIMEN Ordering Facility: [facility] Address: [address] [place] [address] Performed By: #### 4 537-7 #### [facility] CLIA [id number] [address] [place] [address] [place] Hemoglobin (Bld) [Mass/Vol] 10.6 g/dL Low 11.5-15.5 [facility] Comment on above: Order Comment: Speci men Type: BLOOD SPECIMEN Ordering Facility: [facility] Address: [address] [place] [address] Performed By: #### 4 537-7 #### [facility] CLIA [id number] [address] [place] [address] [place] MCH (RBC) [Entitic mass] 31.0 pg Normal 26.0-34.0 [facility] Comment on above: Order Comment: Speci men Type: BLOOD SPECIMEN Ordering Facility: [facility] Address: [address] [place] [address] Performed By: #### 4 537-7 #### [facility] CLIA [id number] [address] [place] [address] [place] MCHC (RBC) [Mass/Vol] 35.0 g/dL Normal 30.5-36.0 [facility] Comment on above: Order Comment: Speci men Type: BLOOD SPECIMEN Ordering Facility: [facility] Address: [address] [place] [address] Performed By: #### 4 537-7 #### [facility] CLIA [id number] [address] [place] [address] [place] MCV (RBC) [Entitic vol] 88.6 fL Normal 80.0-100.0 [facility] Comment on above: Order Comment: Speci men Type: BLOOD SPECIMEN Ordering Facility: [facility] Address: [address] [place] [address] Performed By: #### 4 537-7 #### [facility] CLIA [id number] [address] [place] [address] [place] Nucleated RBC (Bld) [#/Vol] 10*3/uL Normal <0.01 [facility] Comment on above: Order Comment: Speci men Type: BLOOD SPECIMEN Ordering Facility: [facility] Address: [address] [place] [address] Performed By: #### 4 537-7 #### [facility] CLIA [id number] [address] [place] [address] [place] Platelet mean volume (Bld) [Entitic vol] 9.1 fL Normal 9.0-12.7 [facility] Comment on above: Order Comment: Speci men Type: BLOOD SPECIMEN Ordering Facility: [facility] Address: [address] [place] [address] Performed By: #### 4 537-7 #### [facility] CLIA [id number] [address] [place] [address] [place] Platelets (Bld) [#/Vol] 204 10*3/uL Normal 150-400 [facility] Comment on above: Order Comment: Speci men Type: BLOOD SPECIMEN Ordering Facility: [facility] Address: [address] [place] [address] Performed By: #### 4 537-7 #### [facility] CLIA [id number] [address] [place] [address] [place] RBC (Bld) [#/Vol] 3.42 10*6/uL Low 3.90-5.20 [facility] Comment on above: Order Comment: Speci men Type: BLOOD SPECIMEN Ordering Facility: [facility] Address: [address] [place] [address] Performed By: #### 4 537-7 #### [facility] CLIA [id number] [address] [place] [address] [place] WBC (Bld) [#/Vol] 4.62 10*3/uL Normal 3.70-11.00 [facility] Comment on above: Order Comment: Speci men Type: BLOOD SPECIMEN Ordering Facility: [facility] Address: [address] [place] [address] Performed By: #### 4 537-7 #### [facility] CLIA [id number] [address] [place] [address] [place] CNCRITCRon 11-21-2024 CNCRITCR Normal [facility] CRP SerPl-mCncon 11-21-2024 CRP [Mass/Vol] 2.6 mg/dL High <0.9 [facility] Comment on above: Order Comment: Speci men Type: BLOOD SPECIMEN Ordering Facility: [facility] Address: [address] [place] [address] Performed By: #### 1 9123-9, 2777-1, 13207-9 #### [facility] CLIA [id number] [address] [place] [address] [place] Comprehensive metabolic 2000 panelon 11-21-2024 Albumin [Mass/Vol] 3.6 g/dL Low 3.9-4.9 [facility] Comment on above: Order Comment: Speci men Type: BLOOD SPECIMEN Ordering Facility: [facility] Address: [address] [place] [address] Performed By: #### 4 537-7 #### [facility] CLIA [id number] [address] [place] [address] [place] ALP [Catalytic activity/Vol] 62 U/L Normal 34-123 [facility] Comment on above: Order Comment: Speci men Type: BLOOD SPECIMEN Ordering Facility: [facility] Address: [address] [place] [address] Performed By: #### 4 537-7 #### [facility] CLIA [id number] [address] [place] [address] [place] ALT With P-5'-P [Catalytic activity/Vol] 15 U/L Normal 7-38 [facility] Comment on above: Order Comment: Speci men Type: BLOOD SPECIMEN Ordering Facility: [facility] Address: [address] [place] [address] Performed By: #### 4 537-7 #### [facility] CLIA [id number] [address] [place] [address] [place] Anion gap [Moles/Vol] 15 mmol/L Normal 8-15 [facility] Comment on above: Order Comment: Speci men Type: BLOOD SPECIMEN Ordering Facility: [facility] Address: [address] [place] [address] Performed By: #### 4 537-7 #### [facility] CLIA [id number] [address] [place] [address] [place] AST With P-5'-P [Catalytic activity/Vol] 32 U/L Normal 13-35 [facility] Comment on above: Order Comment: Speci men Type: BLOOD SPECIMEN Ordering Facility: [facility] Address: [address] [place] [address] Performed By: #### 4 537-7 #### [facility] CLIA [id number] [address] [place] [address] [place] Bilirubin [Mass/Vol] 0.4 mg/dL Normal 0.2-1.3 [facility] Comment on above: Order Comment: Speci men Type: BLOOD SPECIMEN Ordering Facility: [facility] Address: [address] [place] [address] Performed By: #### 4 537-7 #### [facility] CLIA [id number] [address] [place] [address] [place] Calcium [Mass/Vol] 7.9 mg/dL Low 8.5-10.2 [facility] Comment on above: Order Comment: Speci men Type: BLOOD SPECIMEN Ordering Facility: [facility] Address: [address] [place] [address] Performed By: #### 4 537-7 #### [facility] CLIA [id number] [address] [place] [address] [place] Chloride [Moles/Vol] 105 mmol/L Normal 98-107 [facility] Comment on above: Order Comment: Speci men Type: BLOOD SPECIMEN Ordering Facility: [facility] Address: [address] [place] [address] Performed By: #### 4 537-7 #### [facility] CLIA [id number] [address] [place] [address] [place] CO2 [Moles/Vol] 17 mmol/L Low 22-30 [facility] Comment on above: Order Comment: Speci men Type: BLOOD SPECIMEN Ordering Facility: [facility] Address: [address] [place] [address] Performed By: #### 4 537-7 #### [facility] CLIA [id number] [address] [place] [address] [place] Creatinine [Mass/Vol] 0.70 mg/dL Normal 0.58-0.96 [facility] Comment on above: Order Comment: Speci men Type: BLOOD SPECIMEN Ordering Facility: [facility] Address: [address] [place] [address] Performed By: #### 4 537-7 #### [facility] CLIA [id number] [address] [place] [address] [place] eGFRcr SerPlBld CKD-EPI 2020 96 mL/min/1.73m??? Normal >=60 [facility] Comment on above: Order Comment: Speci men Type: BLOOD SPECIMEN Ordering Facility: [facility] Address: [address] [place] [address] Result Comment: Sana mated Glomerular Filtration Rate (eGFR) is calculated using the 2020 CKD-EPI creatinine equation. This equation utilizes serum creatinine, sex, and age as parameters. The creatinine assay has traceable calibration to isotope dilution-mass spectrometry. Refer to KDIGO guidelines for clinical interpretation. In patients with unstable renal function, e.g. those with acute kidney injury, the eGFR may not accurately reflect actual GFR. Performed By: #### 4 537-7 #### [facility] CLIA [id number] [address] [place] [address] [place] Glucose [Mass/Vol] 196 mg/dL High 74-99 [facility] Comment on above: Order Comment: Speci men Type: BLOOD SPECIMEN Ordering Facility: [facility] Address: [address] [place] [address] Result Comment: The [place] Diabetes Association (ADA) provides guidance for cutoff values for fasting glucose and random glucose. The ADA defines fasting as no caloric intake for at least 8 hours. Fasting plasma glucose results between 100 to 125 mg/dL indicate increased risk for diabetes (prediabetes). Fasting plasma glucose results greater than or equal to 126 mg/dL meet the criteria for diagnosis of diabetes. In the absence of unequivocal hyperglycemia, results should be confirmed by repeat testing. In a patient with classic symptoms of hyperglycemia or hyperglycemic crisis, random plasma glucose results greater than or equal to 200 mg/dL meet the criteria for diagnosis of diabetes. Reference: Standards of Medical Care in Diabetes 2016, [place] Diabetes Association. Diabetes Care. 2016.39(Suppl 1). Performed By: #### 4 537-7 #### [facility] CLIA [id number] [address] [place] [address] [place] Potassium [Moles/Vol] 3.1 mmol/L Low 3.7-5.1 [facility] Comment on above: Order Comment: Speci men Type: BLOOD SPECIMEN Ordering Facility: [facility] Address: [address] [place] [address] Performed By: #### 4 537-7 #### [facility] CLIA [id number] [address] [place] [address] [place] Protein [Mass/Vol] 6.1 g/dL Low 6.3-8.0 [facility] Comment on above: Order Comment: Speci men Type: BLOOD SPECIMEN Ordering Facility: [facility] Address: [address] [place] [address] Performed By: #### 4 537-7 #### [facility] CLIA [id number] [address] [place] [address] [place] Sodium [Moles/Vol] 137 mmol/L Normal 136-144 [facility] Comment on above: Order Comment: Speci men Type: BLOOD SPECIMEN Ordering Facility: [facility] Address: [address] [place] [address] Performed By: #### 4 537-7 #### [facility] CLIA [id number] [address] [place] [address] [place] Urea nitrogen [Mass/Vol] 22 mg/dL High 7-21 [facility] Comment on above: Order Comment: Speci men Type: BLOOD SPECIMEN Ordering Facility: [facility] Address: [address] [place] [address] Performed By: #### 4 537-7 #### [facility] CLIA [id number] [address] [place] [address] [place] ECG COMPLETEon 11-21-2024 ECG COMPLETE Ventricular Rate : 1 14 BPM Atrial Rate : 114 BPM P-R Interval : 112 ms QRS Duration : 96 ms Q-T Interval : 438 ms QTC Calculation(Bazett) : 603 ms Calculated P [place] : 78 degrees Calculated R [place] : 23 degrees Calculated T [place] : 95 degrees SINUS TACHYCARDIA T WAVE ABNORMALITY, CONSIDER LATERAL ISCHEMIA PROLONGED QT ABNORMAL ECG NO PREVIOUS ECGS AVAILABLE Confirmed by MD VILLEDA YASSAR ([id number]) on 11/22/2024 1:26:49 PM NAME : LAKESHA KOCH PID : [id number] : 1960 Gender : Female Race : ORD : [id number] Procedure Date : Nov 21 2024 06:26:12 Edit Date : Nov 22 2024 13:26:51 Diagnosis: SINUS TACHYCARDIA T WAVE ABNORMALITY, CONSIDER LATERAL ISCHEMIA PROLONGED QT ABNORMAL ECG NO PREVIOUS ECGS AVAILABLE Confirmed by MD VILLEDA YASSAR ([id number]) on 11/22/2024 1:26:49 PM Test Reason : Arrhythmia Location : [address] : [place] [address] Overread By : MD VILLEDA YASSAR Edited By : MD VILLEDA YASSAR Referred By : KAVIN ADAMS Acquired by : MARIE MEDINA [facility] ECHO WITH AGITATED SALINE CO NTRASTon 11-21-2024 ECHO WITH AGITATED SALINE CONTRAST Echocardiography Report: Transthoracic Echo [facility] Date of service: 11/21/2024 9:56:29 AM [facility] Ordering physician: KY GONZALEZ Exam indication: VT Technologist: Zo Richard Interpreting physician: Rachel Villeda MD PATIENT: Name: MS. LAKESHA KOCH : 1960 Age: 64 years Gender: F Primary rhythm: sinus. Height: 160.00 cm BSA: 1.31 m Weight: 38.56 kg BMI: 15.1 kg/m Heart rate 77 bpm Blood pressure 78/53 mmHg Technically difficult exam due to body habitus. Color Doppler was utilized to interrogate the cardiac valves assessed and spectral Doppler was utilized to determine the flow velocities and pressure gradients reported in this exam. MEASUREMENTS: Value Indexed Normal LV ID (diastole) 4.1 cm (2D) 3.11 cm/m LV ID (systole) 3.0 cm (2D) 2.33 cm/m IVS, leaflet tips 0.9 cm (2D) Posterior wall thickness 0.8 cm (2D) Left ventricular mass 103 g (2D) 79 g/m LV stroke volume 44 ml (2D 4-ch.) LV end diastolic volume 89 ml (2D 4-ch.) 68.0 ml/m 29<=EDVi<62 LV end systolic volume 45 ml (2D 4-ch.) 34.2 ml/m Ejection Fraction 50 % (2D 4-ch.) EF > 54 FINDINGS: LEFT VENTRICLE The left ventricle is mildly dilated. Left ventricular systolic function is mildly decreased regionally. Definity contrast used for endocardial border detection. Wall Motion: The inferior septum, inferior wall, and posterior wall are mildly hypokinetic. All remaining scored segments are normal. RIGHT VENTRICLE The right ventricle is normal in size. Right ventricular systolic function is normal. Estimated right ventricular systolic pressure is 29 mmHg consistent with normal pulmonary artery pressures. Estimated right atrial pressure is 3 mmHg based on IVC assessment. RIGHT ATRIUM Inferior Vena Cava: The inferior vena cava appears normal measuring 1.7 cm. The vessel decreases greater than 50 percent with inspiration. MITRAL VALVE The mitral valve leaflets are structurally normal. There is trace mitral valve regurgitation. TRICUSPID VALVE The tricuspid valve leaflets are structurally normal. There is trace tricuspid valve regurgitation. The hepatic venous pattern showed normal systolic flow. AORTIC VALVE The aortic valve cusps are structurally normal. There is no aortic valve regurgitation. Tricuspid aortic valve. PULMONIC VALVE The pulmonic valve was not seen or not interrogated. PULMONARY ARTERIES The pulmonary arteries are unseen or not interrogated. INTERATRIAL SEPTUM There is no evidence of intracardiac shunting as detected by Doppler and agitated saline contrast following the Valsalva maneuver. PERICARDIUM There is a trivial pericardial effusion adjacent to the right ventricle and left ventricle. CONCLUSIONS: - Technically difficult exam due to body habitus. - Exam indication: VT - The left ventricle is mildly dilated. Left ventricular systolic function is mildly decreased. EF = 50 5% (2D 4-ch.) Definity contrast used for endocardial border detection. The inferior septum, inferior wall, and posterior wall are mildly hypokinetic. - The right ventricle is normal in size. Right ventricular systolic function is normal. - There is a trivial pericardial effusion - There is no evidence of intracardiac shunting as detected by Doppler and agitated saline contrast following the Valsalva maneuver. - Exam was compared with the prior echocardiographic exam performed on 09/18/2023. Mildly reduced LVEF with focal wall motion abnormalities on today's echo. Pericardial effusion has decreased in size. * * * Final (Updated) * * * CC [facility] : [id number] Normal [facility] ESR Westergren method (Bld) [Velocity]on 11-21-2024 ESR (Bld) [Velocity] 16 mm/h Normal 0-20 [facility] Comment on above: Order Comment: Speci men Type: BLOOD SPECIMEN Ordering Facility: [facility] Address: [address] [place] [address] Performed By: #### 4 537-7 #### [facility] CLIA [id number] [address] [place] [address] [place] HIGH SENSITIVITY TROPONIN To n 11-21-2024 Troponin T.cardiac High sensitivity method [Mass/Vol] 107 ng/L High <12 [facility] Comment on above: Order Comment: Speci men Type: BLOOD SPECIMEN Ordering Facility: [facility] Address: [address] [place] [address] Performed By: #### 4 537-7 #### [facility] CLIA [id number] [address] [place] Troponin T.cardiac High sensitivity method [Mass/Vol] 132 ng/L High <12 [facility] Comment on above: Order Comment: Umesh baugh Type: BLOOD SPECIMEN Ordering Facility: [facility] Address: [address] [place] [address] Performed By: #### H STNT #### [facility] CLIA [id number] [address] [place] HbA1c (Bld)on 11-21-2024 Average glucose Estimated from glycated hemoglobin (Bld) [Mass/Vol] 108 mg/dL Normal [facility] Comment on above: Order Comment: Umesh baugh Type: BLOOD SPECIMEN Ordering Facility: [facility] Address: [address] [place] [address] Result Comment: eAG: (Estimated average glucose) is a calculated value from HgbA1c and is sales and marketing representative of the average blood glucose level in the last 2-3 month period. Performed By: #### 4 537-7 #### [facility] CLIA [id number] [address] [place] [address] [place] HbA1c (Bld) [Mass fraction] 5.4 % Normal 4.3-5.6 [facility] Comment on above: Order Comment: Umesh baugh Type: BLOOD SPECIMEN Ordering Facility: [facility] Address: [address] [place] [address] Result Comment: [place] Diabetes Association guidelines indicate that patients with HgbA1c in the range 5.7-6.4% are at increased risk for development of diabetes, and intervention by lifestyle modification may be beneficial. HgbA1c greater or equal to 6.5% is considered diagnostic of diabetes. Performed By: #### 4 537-7 #### [facility] CLIA [id number] [address] [place] [address] [place] LIPID PANEL, NONFASTINGon Cholesterol [Mass/Vol] 111 mg/dL Normal <200 [facility] Comment on above: Order Comment: Umesh baugh Type: BLOOD SPECIMEN Ordering Facility: [facility] Address: [address] [place] [address] Result Comment: <200 mg/dL, Desirable 200-239 mg/dL, Borderline high >239 mg/dL, High Performed By: #### 4 537-7 #### [facility] CLIA [id number] [address] [facility] [address] [place] HDL CHOLESTEROL, NF 64 mg/dL Normal >39 [facility] Comment on above: Order Comment: Umesh baugh Type: BLOOD SPECIMEN Ordering Facility: [facility] Address: [address] [place] [address] Result Comment: 40-5 9 mg/dL, Acceptable >59 mg/dL, High: Negative risk factor for coronary heart disease <40 mg/dL, Low: Positive risk factor for coronary heart disease Performed By: #### 4 537-7 #### [facility] CLIA [id number] [address] [place] [address] [place] LDL CHOLESTEROL CALCULATED, NF 25 mg/dL Normal <100 [facility] Comment on above: Order Comment: Umesh baugh Type: BLOOD SPECIMEN Ordering Facility: [facility] Address: [address] [place] [address] Result Comment: <100 mg/dL, Optimal 100-129 mg/dL, Near optimal/above optimal 130-159 mg/dL, Borderline high 160-189 mg/dL, High >189 mg/dL, Very high Secondary prevention optimal LDL Cholesterol levels are recommended to be <70 mg/dL LDL cholesterol is calculated using the Leon-NIH equation. Performed By: #### 4 537-7 #### [facility] CLIA [id number] [address] [place] [address] [place] LDL/HDL RATIO, NF 0.39 mg/dL Normal <2.54 [facility] Comment on above: Order Comment: Umesh baugh Type: BLOOD SPECIMEN Ordering Facility: [facility] Address: [address] [place] [address] Result Comment: Refe rence: 1. National Cholesterol Education Program ATP III Guideline At-A-Glance Quick Desk Reference: National Heart, Lung, and Blood [place]. National Institutes of Health. 2001: NIH Publication No. 01-3305. 2. An International Atherosclerosis Society position paper: global recommendations for the management of dyslipidemia: executive summary, Atherosclerosis. 2014: 232(2):410-413. Performed By: #### 4 537-7 #### [facility] CLIA [id number] [address] [place] [address] [place] NON HDL CHOL, NF 47 mg/dL Normal <130 [facility] Comment on above: Order Comment: Umesh baugh Type: BLOOD SPECIMEN Ordering Facility: [facility] Address: [address] [place] [address] Result Comment: <130 mg/dL, Optimal 130-159 mg/dL, Near optimal/above optimal 160-189 mg/dL, Borderline high 190-219 mg/dL, High >219 mg/dL, Very high Secondary prevention optimal non HDL Cholesterol levels are recommended to be <100 mg/dL Performed By: #### 4 537-7 #### [facility] CLIA [id number] [address] [place] [address] [place] T CHOL/HDL RATIO NF 1.73 mg/dL Normal <5.10 [facility] Comment on above: Order Comment: Umesh baugh Type: BLOOD SPECIMEN Ordering Facility: [facility] Address: [address] [place] [address] Performed By: #### 4 537-7 #### [facility] CLIA [id number] [address] [place] [address] [place] TRIGLYCERIDES, NF 125 mg/dL Normal <150 [facility] Comment on above: Order Comment: Umesh baugh Type: BLOOD SPECIMEN Ordering Facility: [facility] Address: [address] [place] [address] Result Comment: <150 mg/dL, Normal 150-199 mg/dL, Borderline high 200-499 mg/dL, High >499 mg/dL, Very high Performed By: #### 4 537-7 #### [facility] CLIA [id number] [address] [place] [address] [place] VLDL CHOLESTEROL, NF 16 mg/dL Normal <30 [facility] Comment on above: Order Comment: Speci men Type: BLOOD SPECIMEN Ordering Facility: [facility] Address: [address] [place] [address] Performed By: #### 4 537-7 #### [facility] CLIA [id number] [address] [place] [address] [place] Lactate (Bld) [Moles/Vol]on 11-21-2024 Lactate [Moles/Vol] 1.4 mmol/L Normal 0.5-2.2 [facility] Comment on above: Order Comment: Speci men Type: BLOOD SPECIMEN Ordering Facility: [facility] Address: [address] [place] [address] Performed By: #### 3 2693-4 #### [facility] CLIA [id number] [address] [place] [address] [place] Lactate [Moles/Vol] 1.9 mmol/L Normal 0.5-2.2 [facility] Comment on above: Order Comment: Speci men Type: BLOOD SPECIMEN Ordering Facility: [facility] Address: [address] [place] [address] Performed By: #### 3 2693-4 #### [facility] CLIA [id number] [address] [place] [address] [place] Magnesium SerPl-mCncon 11-21 Magnesium [Mass/Vol] 1.7 mg/dL Normal 1.7-2.3 [facility] Comment on above: Order Comment: Speci men Type: BLOOD SPECIMEN Ordering Facility: [facility] Address: [address] [place] [address] Performed By: #### 4 537-7 #### [facility] CLIA [id number] [address] [place] [address] [place] Phosphate SerPl-mCncon 11-21 Phosphate [Mass/Vol] 2.8 mg/dL Normal 2.7-4.8 [facility] Comment on above: Order Comment: Speci men Type: BLOOD SPECIMEN Ordering Facility: [facility] Address: [address] [place] [address] Performed By: #### 4 537-7 #### [facility] CLIA [id number] [address] [place] [address] [id number] [place] [address] [place] STAPHYLOCOCCUS AUREUS AND MR SA SCREEN, PCR, NASALon 11-21-2024 S. aureus and MRSA panel SAUNDRA+probe (Nose) Not detected Normal Not Detected [facility] Comment on above: Order Comment: Speci men Type: BLOOD SPECIMEN Ordering Facility: [facility] Address: [address] [place] [address] Performed By: #### 1 9123-9, 2777-1, 87695-0 #### [facility] CLIA [id number] [address] [place] [address] [place] Troponin T HS 2 HRon 025 Trop T High Sen 82 ng/L Invalid Interpretation Code <=14 [facility] Comment on above: Result Comment: Crit ical Result(s) Called at:01:25 11-21-24 ann sparr by:?Jessy Bowman Results read back by same. Performed By: #### L 499.0042 #### [facility] [address] [place], [place], [id number] Troponin T HS 4 HRon 025 Trop T High Sen Normal <=14 [facility] Comment on above: Result Comment: PT D ISCHARGED Performed By: #### L 500.2500, L100.0100 #### [facility] [address] [place], [place], [id number] Troponin T.cardiac [Mass/vol ume] in Serum or Plasma by High sensitivity methodOrdered By: Kavin Adams on 11-21-2024 Troponin T.cardiac High sensitivity method [Mass/Vol] 82 ng/L High <14 [facility] Comment on above: Critical Result(s) C alled at:01:25 11-21-24 ann sparr by: Tricia Bowman Results read back by same. Urinalysis complete panel (U )on 11-21-2024 Bilirubin Ql (U) Negative Normal Negative [facility] Comment on above: Order Comment: Speci men Type: URINE SPECIMEN Ordering Facility: [facility] Address: [address] [place] [address] Performed By: #### 2 4356-8 #### [facility] CLIA [id number] [address] [place] Clarity (Unsp spec) Clear Normal Clear [facility] Comment on above: Order Comment: Speci men Type: URINE SPECIMEN Ordering Facility: [facility] Address: [address] [place] [address] Performed By: #### 2 4356-8 #### [facility] CLIA [id number] [address] Color (U) Colorless Normal yellow [facility] Comment on above: Order Comment: Speci men Type: URINE SPECIMEN Ordering Facility: [facility] Address: [address] [place] [address] Performed By: #### 2 4356-8 #### [facility] CLIA [id number] [address] Glucose Test strip (U) [Mass/Vol] Negative Normal Trace, Negative [facility] Comment on above: Order Comment: Speci men Type: URINE SPECIMEN Ordering Facility: [facility] Address: [address] [place] [address] Performed By: #### 2 4356-8 #### [facility] CLIA [id number] [address] [place] Hemoglobin Ql (U) Negative Normal Negative, Trace [facility] Comment on above: Order Comment: Speci men Type: URINE SPECIMEN Ordering Facility: [facility] Address: [address] [place] [address] Performed By: #### 2 4356-8 #### [facility] CLIA [id number] [address] [place] Hyaline casts (Urine sed) [#/Area] 1-3 /LPF Abnormal 0 /LPF [facility] Comment on above: Order Comment: Speci men Type: URINE SPECIMEN Ordering Facility: [facility] Address: [address] [place] [address] Performed By: #### 2 4356-8 #### [facility] CLIA [id number] [address] [place] Ketones Ql (U) Negative Normal Negative, Trace [facility] Comment on above: Order Comment: Speci men Type: URINE SPECIMEN Ordering Facility: [facility] Address: [address] [place] [address] Performed By: #### 2 4356-8 #### [facility] CLIA [id number] [address] Leukocyte esterase Test strip Ql (U) Negative Normal Negative, 25 Adeola/uL [facility] Comment on above: Order Comment: Speci men Type: URINE SPECIMEN Ordering Facility: [facility] Address: [address] [place] [address] Performed By: #### 2 4356-8 #### [facility] CLIA [id number] [address] Nitrite Ql (U) Negative Normal Negative [facility] Comment on above: Order Comment: Speci men Type: URINE SPECIMEN Ordering Facility: [facility] Address: [address] [place] [address] Performed By: #### 2 4356-8 #### [facility] CLIA [id number] [address] [place] pH (U) 5.5 [pH] Normal 5.0-8.0 [facility] Comment on above: Order Comment: Speci men Type: URINE SPECIMEN Ordering Facility: [facility] Address: [address] [place] [address] Performed By: #### 2 4356-8 #### [facility] CLIA [id number] [address] Protein (U) [Mass/Vol] Negative Normal Trace , Negative [facility] Comment on above: Order Comment: Speci men Type: URINE SPECIMEN Ordering Facility: [facility] Address: [address] [place] [address] Performed By: #### 2 4356-8 #### [facility] CLIA [id number] [address] RBC LM.HPF (Urine sed) [#/Area] 0-3 /HPF Normal 0-3 /HPF [facility] Comment on above: Order Comment: Speci men Type: URINE SPECIMEN Ordering Facility: [facility] Address: [address] [place] [address] Performed By: #### 2 4356-8 #### [facility] CLIA [id number] [address] Specific gravity (U) [Rel density] 1.021 Normal 1.005-1.03 0 [facility] Comment on above: Order Comment: Speci men Type: URINE SPECIMEN Ordering Facility: [facility] Address: [address] [place] [address] Performed By: #### 2 4356-8 #### [facility] CLIA [id number] [address] Urobilinogen Ql (U) Normal Normal Normal [facility] Comment on above: Order Comment: Speci men Type: URINE SPECIMEN Ordering Facility: [facility] Address: [address] [place] [address] Performed By: #### 2 4356-8 #### [facility] CLIA [id number] [address] WBC LM.HPF (Urine sed) [#/Area] 0-5 /HPF Normal 0-5 /HPF [facility] Comment on above: Order Comment: Speci men Type: URINE SPECIMEN Ordering Facility: [facility] Address: [address] [place] [address] Performed By: #### 2 4356-8 #### [facility] CLIA [id number] [address] OF [facility] 12 Lead EKGon 11-20-2024 12 Lead EKG [facility] Cardiovascular Services [address] [place] [address] 12 Lead EKG 11/20/24 2337 MR#: [id number] Acct: [id number] Name: LAKESHA KOCH ILENE Rep #: [id number] : 1960 64 From: Sivakumar Nichols MD Attending Dr: Status: DEP ER Ordering Dr: Kavin Adams DO Date: 11/20/24 Location: ED Sex: F C Admitted: Test Reason : CP Blood Pressure : */* mmHG Vent. Rate : 141 BPM Atrial Rate : 141 BPM P-R Int : 116 ms QRS Dur : 62 ms QT Int : 260 ms P-R-T Axes : 82 22 59 degrees QTcB Int : 398 ms Critical Test Result: High HR Sinus tachycardia Low voltage QRS Acute pericarditis Abnormal ECG Confirmed by SIVAKUMAR NICHOLS ([id number]), food expeditor JAG SCHILLING ([id number]) on 11/21/2024 1:46:45 PM Referred By: EVY Confirmed By: SIVAKUMAR NICHOLS 11/21/24 1346 Date Sivakumar Nichols MD CC: Dr. Kavin Adams DO; Aubrey [facility] MECHANIC SENIOR-C Beam Signed Normal [facility] 12 Lead EKG [facility] Cardiovascular Services [address] [place] [address] 12 Lead EKG 11/20/24 2148 MR#: [id number] Acct: [id number] Name: LAKESHA KOCH ILENE Rep #: [id number] : 1960 64 From: Sivakumar Nichols MD Attending Dr: Status: DEP ER Ordering Dr: Kavin Adams DO Date: 11/20/24 Location: ED Sex: F C Admitted: Test Reason : STEMI Blood Pressure : */* mmHG Vent. Rate : 110 BPM Atrial Rate : 110 BPM P-R Int : 118 ms QRS Dur : 70 ms QT Int : 338 ms P-R-T Axes : 77 57 68 degrees QTcB Int : [address] elevation, consider early repolarization, pericarditis, or injury Nonspecific ST and T wave abnormality Abnormal ECG Confirmed by SIVAKUMAR NICHOLS ([id number]), food expeditor JAG SCHILLING ([id number]) on 11/21/2024 1:47:13 PM Referred By: TL Confirmed By: SIVAKUMAR NICHOLS 11/21/24 1347 Date Sivakumar Nichols MD CC: Dr. Kavin Adams DO; Aubrey [facility] MECHANIC SENIOR-C Beam Signed Normal [facility] Absolute lymphocyte countOrd ered By: Kavin Adams on 11-20-2024 Lymphocytes Auto (Unsp spec) [#/Vol] 1.78 10*3/uL 0.83-4.51 [facility] Absolute neutrophil countOrd ered By: Kavin Adams on 11-20-2024 Neutrophils (Bld) [#/Vol] 3.5 10*3/uL 2.0-7.7 [facility] Activated partial thrombopla stin time (aPTT) in platelet poor plasma by coagulation aOrdered By: Kavin Adams on 11-20-2024 aPTT Coag (PPP) [Time] 22.2 s Low 24.1-36.2 [facility] Anion gap in Serum or Plasma Ordered By: Kavin Adams on 11-20-2024 Anion gap [Moles/Vol] 20 mmol/L High 5-[address] [facility] Automated lymphocyte count a s percentage of total leukocytesOrdered By: Kavin Adams on 11-20-2024 Lymphocytes/100 WBC Auto (Unsp spec) 30.9 % 19-41 [facility] BUN/creatinine ratioOrdered By: Kavin Adams on 11-20-2024 Urea nitrogen/Creatinine [Mass ratio] 30.1 mg/mg High 10 [facility] Basic Metabolic Profile (BMP )on 11-20-2024 BUN/CRE 30.1 RATIO High 10-20 [facility] Comment on above: Performed By: #### L 500.2500, L100.0100 #### [facility] [address] [place], [address] Calcium [Mass/Vol] 9.5 mg/dL Normal 7.6-11.0 [facility] Comment on above: Performed By: #### L 500.2500, L100.0100 #### [facility] [address] [place], [address] Chloride [Moles/Vol] 100 mmol/L Normal 98-108 [facility] Comment on above: Performed By: #### L 500.2500, L100.0100 #### [facility] [address] [place], [address] CO2 [Moles/Vol] 19.7 mmol/L Low 21.0-32.0 [facility] Comment on above: Performed By: #### L 500.2500, L100.0100 #### [facility] [address] [place], [address] Creatinine [Mass/Vol] 1.06 mg/dL Normal 0.70-1.[address] [facility] Comment on above: Performed By: #### L 500.2500, L100.0100 #### [facility] [address] [place], [address] ECRCL 36.67 ml/min Low 50-250 [facility] Comment on above: Performed By: #### L 500.2500, L100.0100 #### [facility] [address] [place], [address] GAP 20 High 5-15 [facility] Comment on above: Performed By: #### L 500.2500, L100.0100 #### [facility] [address] [place], [address] GFR/1.73 sq M.predicted among non-blacks MDRD (S/P/Bld) [Vol rate/Area] 58 mL/min/{1.73_m2} Low >60 [facility] Comment on above: Result Comment: mL/m in/1.73m2 CKD-EPI Creatinine Equation (2020) Performed By: #### L 500.2500, L100.0100 #### [facility] [address] [place], [address] Glucose [Mass/Vol] 162 mg/dL High 70-99 [facility] Comment on above: Performed By: #### L 500.2500, L100.0100 #### [facility] [address] [place], [address] Potassium [Moles/Vol] 3.0 mmol/L Low 3.3-5.[address] [facility] Comment on above: Result Comment: Hemo lysis present, Results??could be affected. ?? Performed By: #### L 500.2500, L100.0100 #### [facility] [address] [place], [address] Sodium [Moles/Vol] 140 mmol/L Normal 133-145 [facility] Comment on above: Performed By: #### L 500.2500, L100.0100 #### [facility] [address] [place], [address] Urea nitrogen [Mass/Vol] 32 mg/dL High 4-19 [facility] Comment on above: Performed By: #### L 500.2500, L100.0100 #### [facility] [address] [place], [address] Basophil percentageOrdered B y: Kavin Adams on 11-20-2024 Basophils/100 WBC (Bld) 0.9 % 0-1 [facility] CBC W/Diff, Automatedon - Absolute Lymph 1.78 X10 3/uL Normal 0.83-4.51 [facility] Comment on above: Performed By: #### L 500.2500, L100.0100 #### [facility] [address] [place], [address] Absolute Neut 3.5 X10 3/uL Normal 2.0-7.7 [facility] Comment on above: Performed By: #### L 500.2500, L100.0100 #### [facility] [address] [place], [address] Basophils/100 WBC (Bld) 0.9 % Normal 0-1 [facility] Comment on above: Performed By: #### L 500.2500, L100.0100 #### [facility] [address] [place], [address] Eosinophils/100 WBC (Bld) 1.9 % Normal 0-5 [facility] Comment on above: Performed By: #### L 500.2500, L100.0100 #### [facility] [address] [place], [address] Erythrocyte distribution width (RBC) [Ratio] 14.4 % Normal 11.6-14.6 [facility] Comment on above: Performed By: #### L 500.2500, L100.0100 #### [facility] [address] [place], [address] Hematocrit (Bld) [Volume fraction] 37.7 % Normal 37-47 [facility] Comment on above: Performed By: #### L 500.2500, L100.0100 #### [facility] [address] [place], [address] Hemoglobin (Bld) [Mass/Vol] 12.4 g/dL Normal 12.0-15.0 [facility] Comment on above: Performed By: #### L 500.2500, L100.0100 #### [facility] [address] [place], [address] IG% 0.300 Normal 0.0-0.9 [facility] Comment on above: Result Comment: IG% - Immature Granulocytes (promyelocytes, myelocytes and metamyelocytes) > 1% indicates that a LEFT SHIFT is Present. Performed By: #### L 500.2500, L100.0100 #### [facility] [address] [place], [address] Lymphocytes/100 WBC (Bld) 30.9 % Normal 19-41 [facility] Comment on above: Performed By: #### L 500.2500, L100.0100 #### [facility] [address] [place], [address] MCH (RBC) [Entitic mass] 29.8 pg Normal 27.0-32.0 [facility] Comment on above: Performed By: #### L 500.2500, L100.0100 #### [facility] [address] [place], [address] MCHC (RBC) [Mass/Vol] 32.9 g/dL Normal 32-[address] [facility] Comment on above: Performed By: #### L 500.2500, L100.0100 #### [facility] [address] [place], [address] MCV (RBC) [Entitic vol] 90.6 fL Normal 81-99 [facility] Comment on above: Performed By: #### L 500.2500, L100.0100 #### [facility] [address] [place], [address] Monocytes/100 WBC (Bld) 5.7 % Normal 0-10 [facility] Comment on above: Performed By: #### L 500.2500, L100.0100 #### [facility] [address] [place], [address] Neutrophils/100 WBC (Bld) 60.3 % Normal 47-70 [facility] Comment on above: Performed By: #### L 500.2500, L100.0100 #### [facility] [address] [place], [address] Nucleated RBC (Bld) [#/Vol] 0 10*3/uL Normal 0-5 [facility] Comment on above: Performed By: #### L 500.2500, L100.0100 #### [facility] [address] [place], [address] Platelet mean volume (Bld) [Entitic vol] 9.1 fL Normal 6.2-12.0 [facility] Comment on above: Performed By: #### L 500.2500, L100.0100 #### [facility] [address] [place], [address] Platelets (Bld) [#/Vol] 265 10*3/uL Normal 150-450 [facility] Comment on above: Performed By: #### L 500.2500, L100.0100 #### [facility] [address] [place], [address] RBC (Bld) [#/Vol] 4.16 10*6/uL Low 4.2-5.4 [facility] Comment on above: Performed By: #### L 500.2500, L100.0100 #### [facility] [address] [place], [address] RDW SD 47.6 fl High 35.1-43.9 [facility] Comment on above: Performed By: #### L 500.2500, L100.0100 #### [facility] [address] [place], [address] WBC (Bld) [#/Vol] 5.8 10*3/uL Normal 4.4-11.0 [facility] Comment on above: Performed By: #### L 500.2500, L100.0100 #### [facility] [address] [place], [address] CNPNon 08-27-2025 CNPN Normal [facility] CTA Chest W/WO Contraston CTA Chest W/WO Contrast [facility] Imaging Services [address] [place], [place] [address] CTA Chest W/WO Contrast MR#: [id number] Acct: [id number] Name: LAKESHA KOCH Rep #: [id number] : 1960 F 64 From: Pia golden MD PCP: Aubrey Lopez [facility] MECHANIC SENIOR-C Status: REG ER Study: CTA Chest W/WO Contrast Date of Exam: 11/20/24 Exam# [id number] Ordering Dr: Kavin Adams DO PROCEDURE: CTA CHEST W/WO CONTRAST 11/20/2024 REASON FOR EXAM: CHEST PAIN TECHNIQUE: CTA CHEST W/WO CONTRAST Multiplanar Sagittal and Coronal images were obtained. CONTRAST: 100 mL of Isovue-370 One or more dose reduction techniques were used (e.g., Automated exposure control, adjustment of the mA and/or kV according to patient size, use of iterative reconstruction technique). RADIATION DOSE SUMMARY: CTDlvol: 8.99 mGy DLP: 124.82 mGycm COMPARISON: None at the time of dictation. FINDINGS: Normal enhancement of the main pulmonary artery and right and left pulmonary arteries. Normal enhancement of the bilateral peripheral pulmonary arteries. There is no demonstrated pulmonary embolism. Normal thoracic aorta and visualized great vessels. There is no demonstrated aortic dissection. Normal heart and pericardium. The coronary arteries are calcified. Normal mediastinum. Normal hilar regions. Normal visualized trachea and bronchi. The lungs are well expanded. 8.4 mm nodule is seen in the right upper lobe. Normal pleura. Normal chest wall structures. The patient is status post total left shoulder joint replacement. Normal visualized upper abdomen. Cortical scarring is seen in the right upper renal pole. CT/CTA Chest W/WO Contrast IMPRESSION: No evidence of pulmonary embolism or aortic dissection. Right upper lobe nodule. Follow-up in [address] scan would be helpful for further evaluation. Reading [facility] CC: Dr. Kavin Adams DO; [facility] MECHANIC SENIOR-C [employer] Translator: Signed Normal [facility] Carbon dioxide, total [Moles /volume] in Central venous bloodOrdered By: Kavin Adams on 11-20-2024 CO2 [Moles/Vol] 19.7 mmol/L Low 21.0-32.0 [facility] Chest 1 View (Portable)on Chest 1 View (Portable) [facility] Imaging Services [address] [place] [address] Chest 1 View (Portable) MR#: [id number] Acct: [id number] Name: LAKESHA KOCH ILENE Rep #: [id number] : 1960 F 64 From: Cosmo Montero MD PCP: Aubrey Lopez [facility] MECHANIC SENIORMathewC Status: REG ER Study: Chest 1 View (Portable) Date of Exam: 11/20/24 Exam# [id number] Ordering Dr: Kavin Adams DO PROCEDURE: CHEST 1 VIEW (PORTABLE) 11/20/2024 REASON FOR EXAM: CHEST PAIN TECHNIQUE: Frontal view of the chest. COMPARISON: 08/31/2023. FINDINGS: The heart is normal in size. The lungs are clear. The lungs are clear. Right chest infusion port. Left shoulder arthroplasty. RAD/Chest 1 View (Portable) IMPRESSION: No acute cardiopulmonary abnormality. Reading Location: [facility] CC: Dr. Kavin Adams DO; [facility] MECHANIC SENIOR-C [employer] Translator: Signed Normal [facility] Chloride assayOrdered By: Justin Adams on 11-20-2024 Chloride [Moles/Vol] 100 mmol/L 98-108 [facility] Consultation - Cardiologyon 11-20-2024 Consultation - Cardiology [facility] Medical Records Department [address] [place] [address] Consultation - Cardiology 11/20/24 2201 MR#: [id number] Acct: [id number] Name: AUGUSTLAKESHA ILENE Rep #: [id number] : 1960 64 From: Sivakumar Nichols MD PCP: Aubrey Lopez MECHANIC SENIOR-C Status:DEP ER Location: ED Pt seen evaluated w/ANTONIO. I personally interviewed exam the pt. I was involved in all aspects of pt's orders, interpretation of results treatment Assessment Plan Assessment/Plan (1) GERD (gastroesophageal reflux disease): (2) Colon cancer: (3) Acute 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 with appendiceal abscess: (4) Severe malnutrition: (5) Depression: (6) Anxiety: (7) Seizure disorder: (8) Acute coronary syndrome: PLAN: 64-year-old patient brought into the ED by the EMS service as she had ongoing symptoms of chest pain this morning described as retrosternal And then at 9 PM she started to complain of similar chest pain and EMS evaluated the patient an EKG was performed and was given for aspirin 81 mg. Brought into the ED department here at the [facility] where I saw the patient along with the ED physician Dr. Kavin Adams Patient repeatedly admitted that she does not have any chest pain she has chest pain completely resolved she called at 0. We repeated an EKG which showed improvement from previous ST elevation. Bedside cardiac examination Chest exam clear auscultation bilateral Patient has been seen and followed by the oncologist. She had a history of appendiceal abscess History of colon cancer with metastasis to the liver and has been surgically treated with ileostomy. And she has been on chemotherapy recently and follow-up with oncologist. Cardiac care plan; Based on the clinical presentation patient will require further evaluation and treated as acute coronary syndrome. No indication for emergency cardiac catheterization as she is completely chest pain-free. Patient will be admitted to the intensive care unit and started on heparin. Low-dose nitroglycerin. As needed in addition to the rest of her cardiac medication which include atorvastatin and aspirin. Low-dose beta-luis as tolerated. Will evaluate by echocardiogram in the morning to assess LV function As well we will plan for further assessment by cardiac catheterization which can be set up in the morning. Sivakumar Nichols MD,[facility] business quality assurance analyst HPI Consult Data Date of Consult: 11/21/24 HPI Narrative Reason for Consultation: Acute coronary syndrome/with change in the EKG HPI Narrative: LAKESHA KOCH, is a 64 F who presents [facility] Medical History Restless legs Cancer Hypotension Marijuana abuse Alcohol dependence ETOH abuse IBS (irritable bowel syndrome) Anxiety Depression Seizure Seizure disorder Home Medications ???Medication ???Instructions ???Recorded ???Last Taken ???Type alendronate 70 mg tablet 70 mg PO QWEEK [facility] 4 Unknown History buspirone 7.5 mg tablet 7.5 mg PO DAILY Mood 10/18/2308/25 08:50 History sertraline 50 mg tablet 50 mg PO DAILY Mood 10/18/2309/04 08:50 History gabapentin 100 mg capsule 100 mg PO QHS 30 days #30 caps Unknown Rx hydromorphone 2 mg tablet 2 - 4 mg (1 - 2 x 2 mg) PO Q4H PRN 09/12/24 11/20/24 13:00 Rx PRN PAIN 6-10 7 days #42 tabs hydroxyzine pamoate 25 mg capsule 50 mg (2 x 25 mg) PO TID PRN PRN 09/12/24 Unknown Rx Itching 30 days #90 caps methocarbamol 750 mg tablet 750 mg PO Q8 30 days #90 tabs 08/25 12/19 Unknown Rx ondansetron 4 mg disintegrating 4 mg PO Q8H PRN PRN Nausea 30 days 09/12/24 Unknown Rx tablet #90 tabs Allergy/AdvReac Type Severity Reaction Status Date / Time erythromycin base Allergy TONGUE Verified 11/20/24 21:45 PEELS Family History Sister Melanoma Father Prostate CA Surgical History History of placement of ureteral stent History of resection of small bowel History of right salpingo-oophorectomy History of lysis of adhesions History of exploratory laparotomy 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 Social History household members: none housing: apartment Smoking Status: Former smoker alcohol intake: former year quit: 2020 substance use type: marijuana Physical Exam Cardio Cardio Narrative: Seen and evaluated in the ED chest pain resolved monitor worker showed normal sinus rhythm Cardiac exam is regular Chest exam is clear with discoloration bilateral Objective Data Vital Signs: Vital Signs Temp Pulse Resp BP Pulse Ox O2 Del Method 98 F 112 H 18 108/45 L 98 Room (more content not included)... Normal [facility] Emergency Department Summary on 11-20-2024 Emergency Department Summary [facility] Medical Records Department [address] [place] [address] Emergency Department Summary 11/20/24 MR#: [id number] Acct: [id number] Name: LAKESHA KOCH Rep #: [id number] : 1960 64 From: Kavin Birch PCP: Aubrey Lopez [employer]CHANIC SENIOR-C Status:REG ER Location: ED HPI History of Present Illness Chief Complaint: Chest Pain Informant: patient and EMS Narrative Narrative: Presents to the ED prehospital STEMI alert secondary to ST elevations inferior lateral leads on EKG. Called and patient with chest pain however does have history of being on chemotherapy for cancer. She was given aspirin by EMS. However on arrival patient is symptom-free. Interventional Dr. Nichols was present in the ED on her arrival. Patient with on and off chest pain starting at 9:30 AM. Symptoms lasted 30 minutes. States chest discomfort across her chest up to 8 out of 10. No dyspnea no nausea no radicular symptoms no diaphoresis. States symptoms came back at 1 PM and then again at 5 PM. Symptoms totally resolved this time. 9 PM symptoms again came back for which she called EMS. Denies any cardiac history. No history of heart cath. Remote tobacco for where she smoked and quit 1995. Patient diagnosed with colon cancer in January of last year. She had an appendectomy confirming cancer. She is followed by Dr. Poole. Patient was seen a couple weeks ago for abdominal pain admitted for colitis and had concerns for new metastatic lesions to her liver. She started new chemotherapy initiated yesterday morning and being infused currently. Currently symptom is 0. Prior Similar Symptoms: No CVD Risk Factors: Negative for Hypertension, Diabetes, Hypercholesterolemia, Family History 1' or Smoking PE Risk Factors: Positive for Cancer; Negative for Recent Travel/Surgery, Recent Immobilization, Prior DVT or PE or OCP + Smoking + >/=35 PFSH PFSH Medical History Restless legs Cancer Hypotension Marijuana abuse Alcohol dependence ETOH abuse IBS (irritable bowel syndrome) Anxiety Depression Seizure Seizure disorder Home Medications ???Medication ???Instructions ???Recorded ???Last Taken ???Type alendronate 70 mg tablet 70 mg PO QWEEK [facility] 4 Unknown History buspirone 7.5 mg tablet 7.5 mg PO DAILY Mood 10/18/2308/25 08:50 History sertraline 50 mg tablet 50 mg PO DAILY Mood 10/18/2309/04 08:50 History gabapentin 100 mg capsule 100 mg PO QHS 30 days #30 caps Unknown Rx hydromorphone 2 mg tablet 2 - 4 mg (1 - 2 x 2 mg) PO Q4H PRN 09/12/24 11/20/24 13:00 Rx PRN PAIN 6-10 7 days #42 tabs hydroxyzine pamoate 25 mg capsule 50 mg (2 x 25 mg) PO TID PRN PRN 09/12/24 Unknown Rx Itching 30 days #90 caps methocarbamol 750 mg tablet 750 mg PO Q8 30 days #90 tabs 08/25 12/19 Unknown Rx ondansetron 4 mg disintegrating 4 mg PO Q8H PRN PRN Nausea 30 days 09/12/24 Unknown Rx tablet #90 tabs Allergy/AdvReac Type Severity Reaction Status Date / Time erythromycin base Allergy TONGUE Verified 11/20/24 21:45 PEELS Family History Sister Melanoma Father Prostate CA Surgical History History of placement of ureteral stent History of resection of small bowel History of right salpingo-oophorectomy History of lysis of adhesions History of exploratory laparotomy 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 Social History household members: none housing: apartment Smoking Status: Former smoker alcohol intake: former year quit: 2020 substance use type: marijuana ROS ROS ED Constitutional Constitutional ED: Denies chills, fever(s) or sweats ENT ENT ED: Denies sore throat Cardiovascular Cardiovascular: Reports chest pain; Denies leg edema, palpitations or racing heartbeat Respiratory/Chest Respiratory/Chest: Denies cough, dyspnea or dyspnea on exertion Gastrointestinal Gastrointestinal: Denies abdominal pain, diarrhea, nausea or vomiting Genitourinary Genitourinary ED: Denies dysuria, hematuria or urinary frequency Musculoskeletal Musculoskeletal: Denies back pain, extremity pain or neck pain Integumentary Denies rash or wounds Neurologic Neurologic: Denies headache(s), paresthesias or weakness EXAM Physical Exam Const Vital Signs: 11/20/24 21:45 11/20/24 21:45 11/20/24 22:14 Temperature 98 F Temperature Source Oral Pulse Rate 112 H 92 Respiratory Rate 18 18 Respiratory Effort Normal Non-Labored Blood Pressure 108/45 L 94/58 L Blood Pressure Mean 66 70 Blood Pressure Source Blood Pressure Position (more content not included)... Normal [facility] Eosinophil percentageOrdered By: Kavin Adams on 11-20-2024 Eosinophils/100 WBC (Bld) 1.9 % 0-5 [facility] Erythrocyte distribution wid th ratioOrdered By: Kavin Adams on 11-20-2024 Erythrocyte distribution width (RBC) [Ratio] 14.4 % 11.6-14.6 [facility] Erythrocyte distribution wid th standard deviationOrdered By: Kavin Adams on 11-20-2024 Erythrocyte distribution width (RBC) [Ratio] 47.6 fl High 35.1-43.9 [facility] Glomerular filtration rate ( GFR) estimation/1.73 sq m using serum, plasma, or whole bOrdered By: Kavin Adams on 11-20-2024 GFR/1.73 sq M.predicted among non-blacks MDRD (S/P/Bld) [Vol rate/Area] 58 mL/min/{1.73_m2} Low >60 [facility] Comment on above: mL/min/1.73m2 CKD-EP I Creatinine Equation (2020) Hematocrit Auto (Bld) [Volum e fraction]Ordered By: Kavin Adams on 11-20-2024 Hematocrit (Bld) [Volume fraction] 37.7 % 37-47 [facility] Hemoglobin measurementOrdere d By: Kavin Adams on 11-20-2024 Hemoglobin (Bld) [Mass/Vol] 12.4 g/dL 12.0-15.0 [facility] Immature granulocytes/100 WB C Auto (Bld)Ordered By: Kavin Adams on 11-20-2024 Immature granulocytes/100 WBC (Bld) 0.300 % 0.0-0.9 [facility] Comment on above: IG% - Immature Granu locytes (promyelocytes, myelocytes and metamyelocytes) > 1% indicates that a LEFT SHIFT is Present. International normalized rat io (INR) calculationOrdered By: Kavin Adams on 11-20-2024 INR Coag (Bld) [Relative time] 0.9 {INR} [facility] L501.4021on 11-20-2024 Trop T High Sen 91 ng/L Invalid Interpretation Code <=14 [facility] Comment on above: Result Comment: Crit ical Result(s) Called at: by:??Results read back by same. Critical Result(s) Called at: by:??Results read back by same. Critical Result(s) Called MONTSERRAT GREEN at: 2302 by: NIKKI??Results read back by same. Performed By: #### L 500.2500, L100.0100 #### [facility] [address] [place], [address] MCV (mean corpuscular volume ) determinationOrdered By: Kavin Adams on 11-20-2024 MCV (RBC) [Entitic vol] 90.6 fL 81-99 [facility] Mean corpuscular hemoglobin (MCH) determinationOrdered By: Kavin Adams on 11-20-2024 MCH (RBC) [Entitic mass] 29.8 pg 27.0-32.0 [facility] Mean corpuscular hemoglobin concentration (MCHC) determinationOrdered By: Kavin Adams on 11-20-2024 MCHC (RBC) [Mass/Vol] 32.9 g/dL 32-[address] [facility] Mean platelet volume determi nationOrdered By: Kavin Adams on 11-20-2024 Platelet mean volume (Bld) [Entitic vol] 9.1 fL 6.2-12.0 [facility] Monocyte percentageOrdered B y: Kavin Adams on 11-20-2024 Monocytes/100 WBC (Bld) 5.7 % 0-10 [facility] Neutrophil percentageOrdered By: Kavin Adams on 11-20-2024 Neutrophils/100 WBC (Bld) 60.3 % 47-70 [facility] Nucleated red blood cell per centageOrdered By: Kavin Adams on 11-20-2024 Nucleated RBC/100 WBC (Bld) [Ratio] 0 % 0-5 [facility] Partial Thromboplast Timeon 11-20-2024 aPTT Coag (Bld) [Time] 22.2 s Low 24.1-36.2 [facility] Comment on above: Performed By: #### L 500.2500, L100.0100 #### [facility] [address] [place], [address] Platelet countOrdered By: Justin Adams on 11-20-2024 Platelets (Bld) [#/Vol] 265 10*3/uL 150-450 [facility] Potassium measurement (mass/ volume)Ordered By: Kavin Adams on 11-20-2024 Potassium (Unsp spec) [Mass/Vol] 3.0 mmol/L Low 3.3-5.1 [facility] Comment on above: Hemolysis present, R esults could be affected. Prothrombin Time w/INRon INR Coag (PPP) [Relative time] 0.9 {INR} Normal [facility] Comment on above: Performed By: #### L 500.2500, L100.0100 #### [facility] [address] [place], [address] PT Coag (PPP) [Time] 12.4 s Normal 11.7-14.9 [facility] Comment on above: Performed By: #### L 500.2500, L100.0100 #### [facility] [address] [place], [address] Prothrombin timeOrdered By: Kavin Adams on 11-20-2024 PT Coag (PPP) [Time] 12.4 s 11.7-14.9 [facility] RBC Auto (Bld) [#/Vol]Ordere d By: Kavin Adams on 11-20-2024 RBC (Bld) [#/Vol] 4.16 10*6/uL Low 4.2-5.4 [facility] Serum creatinine measurement (mass/volume)Ordered By: Kavin Adams on 11-20-2024 Creatinine [Mass/Vol] 1.06 mg/dL 0.70-1.[address] [facility] Serum glucose measurement (m ass/volume)Ordered By: Kavin Adams on 11-20-2024 Glucose [Mass/Vol] 162 mg/dL High 70-99 [facility] Serum or plasma calcium renetta urement (mass/volume)Ordered By: Kavin Adams on 11-20-2024 Calcium [Mass/Vol] 9.5 mg/dL 7.6-11.0 [facility] Serum or plasma urea nitroge n measurement (mass/volume)Ordered By: Kavin Adams on 11-20-2024 Urea nitrogen [Mass/Vol] 32 mg/dL High 4-19 [facility] Sodium levelOrdered By: Kavin Adams on 11-20-2024 Sodium [Moles/Vol] 140 mmol/L 133-145 [facility] Troponin T.cardiac [Mass/vol ume] in Serum or Plasma by High sensitivity methodOrdered By: Kavin Adams on 11-20-2024 Troponin T.cardiac High sensitivity method [Mass/Vol] 91 ng/L High <14 [facility] Comment on above: Critical Result(s) C alled at: by: Results read back by same.Critical Result(s) Called at: by: Results read back by same.Critical Result(s) Called [place]ERRAT GREEN at: 2302 by: NIKKI Results read back by same. White blood cell (WBC) count Ordered By: Kavin Adams on 11-20-2024 WBC (Bld) [#/Vol] 5.8 10*3/uL 4.4-11.0 [facility] CBC W Auto Differential pane l (Bld)on 11-18-2024 Basophils (Bld) [#/Vol] 0.08 10*3/uL [facility] Basophils/100 WBC (Bld) 1.1 % [facility] Differential cell count method Nom (Bld) Auto [facility] Eosinophils (Bld) [#/Vol] 0.31 10*3/uL [facility] Eosinophils/100 WBC (Bld) 4.2 % [facility] Erythrocyte distribution width (RBC) [Ratio] 13.8 % 11.5 - 15.0 % [facility] Hematocrit (Bld) [Volume fraction] 32.2 % Low 36.0 - 46.0 % [facility] Hemoglobin (Bld) [Mass/Vol] 11.1 g/dL Low 11.5 - 15.5 g/dL [facility] Immature granulocytes (Bld) [#/Vol] [facility] Immature granulocytes/100 WBC (Bld) 0.3 % [facility] Interpretation and review of laboratory results Abnormal [facility] Lymphocytes (Bld) [#/Vol] 1.96 10*3/uL [facility] Lymphocytes/100 WBC (Bld) 26.5 % [facility] MCH (RBC) [Entitic mass] 29.8 pg 26.0 - 34.[address] [facility] MCHC (RBC) [Mass/Vol] 34.5 g/dL 30.5 - 36.0 g/dL [facility] MCV (RBC) [Entitic vol] 86.3 fL 80.0 - 100.[address] [facility] Monocytes (Bld) [#/Vol] 0.50 10*3/uL [facility] Monocytes/100 WBC (Bld) 6.8 % [facility] Neutrophils (Bld) [#/Vol] 4.53 10*3/uL [facility] Neutrophils/100 WBC (Bld) 61.1 % [facility] Nucleated RBC (Bld) [#/Vol] [facility] Nucleated RBC/100 WBC (Bld) [Ratio] 0.0 % /[address] [facility] Platelet mean volume (Bld) [Entitic vol] 8.5 fL Low 9.0 - 12.[address] [facility] Platelets (Bld) [#/Vol] 275 10*3/uL [facility] RBC (Bld) [#/Vol] 3.73 10*6/uL Low 3.90 - 5.20 m/uL [facility] WBC (Bld) [#/Vol] 7.40 10*3/uL [facility] Basophils (Bld) [#/Vol] 0.08 10*3/uL Normal <0.11 [facility] Comment on above: Order Comment: Speci men Type: BLOOD SPECIMENOrdering Facility: [facility] Address: [address] [place] [address] Performed By: #### 5 7021-8 ####[facility] MILLTOWNCLIA [id number] [place] [address] [place] Basophils/100 WBC (Bld) 1.1 % Normal [facility] Comment on above: Order Comment: Speci men Type: BLOOD SPECIMENOrdering Facility: [facility] Address: [address] [place] [address] Performed By: #### 5 7021-8 ####[facility] MILLWNCLIA [id number] [place] [address] [place] Differential cell count method Nom (Bld) Auto Normal [facility] Comment on above: Order Comment: Speci men Type: BLOOD SPECIMENOrdering Facility: [facility] Address: [address] [place] [address] Performed By: #### 5 7021-8 ####[facility] GORDAWNCLIA [id number] [place] [address] [place] Eosinophils (Bld) [#/Vol] 0.31 10*3/uL Normal <0.46 [facility] Comment on above: Order Comment: Speci men Type: BLOOD SPECIMENOrdering Facility: [facility] Address: [address] [place] [address] Performed By: #### 5 7021-8 ####[facility] MILLTOWNCLIA [id number] [place] [address] [place] Eosinophils/100 WBC (Bld) 4.2 % Normal [facility] Comment on above: Order Comment: Speci men Type: BLOOD SPECIMENOrdering Facility: [facility] Address: [address] [place] [address] Performed By: #### 5 7021-8 ####[facility] [id number] [place] [address] [place] Erythrocyte distribution width (RBC) [Ratio] 13.8 % Normal 11.5-15.0 [facility] Comment on above: Order Comment: Speci men Type: BLOOD SPECIMENOrdering Facility: [facility] Address: [address] [place] [address] Performed By: #### 5 7021-8 ####[facility] [id number] [place] [address] [place] Hematocrit (Bld) [Volume fraction] 32.2 % Low 36.0-46.0 [facility] Comment on above: Order Comment: Speci men Type: BLOOD SPECIMENOrdering Facility: [facility] Address: [address] [place] [address] Performed By: #### 5 7021-8 ####[facility] [id number] [place] [address] [place] Hemoglobin (Bld) [Mass/Vol] 11.1 g/dL Low 11.5-15.5 [facility] Comment on above: Order Comment: Speci men Type: BLOOD SPECIMENOrdering Facility: [facility] Address: [address] [place] [address] Performed By: #### 5 7021-8 ####[facility] [id number] [place] [address] [place] Immature granulocytes (Bld) [#/Vol] 10*3/uL Normal <0.10 [facility] Comment on above: Order Comment: Speci men Type: BLOOD SPECIMENOrdering Facility: [facility] Address: [address] [place] [address] Performed By: #### 5 7021-8 ####[facility] [id number] [place] [address] [place] Immature granulocytes/100 WBC (Bld) 0.3 % Normal [facility] Comment on above: Order Comment: Speci men Type: BLOOD SPECIMENOrdering Facility: [facility] Address: [address] [place] [address] Performed By: #### 5 7021-8 ####[facility] [id number] [place] [address] [place] Lymphocytes (Bld) [#/Vol] 1.96 10*3/uL Normal 1.00-4.00 [facility] Comment on above: Order Comment: Speci men Type: BLOOD SPECIMENOrdering Facility: [facility] Address: [address] [place] [address] Performed By: #### 5 7021-8 ####[facility] [id number] [place] [address] [place] Lymphocytes/100 WBC (Bld) 26.5 % Normal [facility] Comment on above: Order Comment: Speci men Type: BLOOD SPECIMENOrdering Facility: [facility] Address: [address] [place] [address] Performed By: #### 5 7021-8 ####[facility] [id number] [place] [address] [place] MCH (RBC) [Entitic mass] 29.8 pg Normal 26.0-34.0 [facility] Comment on above: Order Comment: Speci men Type: BLOOD SPECIMENOrdering Facility: [facility] Address: [address] [place], [place] [address] Performed By: #### 5 7021-8 ####[facility] [id number] [place] [address] [place] MCHC (RBC) [Mass/Vol] 34.5 g/dL Normal 30.5-36.0 [facility] Comment on above: Order Comment: Speci men Type: BLOOD SPECIMENOrdering Facility: [facility] Address: [address] [place] [address] Performed By: #### 5 7021-8 ####[facility]ITALFUAD [id number] [place] [address] [place] MCV (RBC) [Entitic vol] 86.3 fL Normal 80.0-100.0 [facility] Comment on above: Order Comment: Speci men Type: BLOOD SPECIMENOrdering Facility: [facility] Address: [address] [place] [address] Performed By: #### 5 7021-8 ####[facility] [id number] [place] [address] [place] Monocytes (Bld) [#/Vol] 0.50 10*3/uL Normal <0.87 [facility] Comment on above: Order Comment: Speci men Type: BLOOD SPECIMENOrdering Facility: [facility] Address: [address] [place] [address] Performed By: #### 5 7021-8 ####[facility] [id number] [place] [address] [place] Monocytes/100 WBC (Bld) 6.8 % Normal [facility] Comment on above: Order Comment: Speci men Type: BLOOD SPECIMENOrdering Facility: [facility] Address: [address] [place] [address] Performed By: #### 5 7021-8 ####[facility] [id number] [place] [address] [place] Neutrophils (Bld) [#/Vol] 4.53 10*3/uL Normal 1.45-7.50 [facility] Comment on above: Order Comment: Speci men Type: BLOOD SPECIMENOrdering Facility: [facility] Address: [address] [place] [address] Performed By: #### 5 7021-8 ####[facility]ITALNCLIA [id number] [place] [address] [place] Neutrophils/100 WBC (Bld) 61.1 % Normal [facility] Comment on above: Order Comment: Speci men Type: BLOOD SPECIMENOrdering Facility: [facility] Address: [address] [place] [address] Performed By: #### 5 7021-8 ####[facility] BISHNURENOFUAD [id number] [place] [address] [place] Nucleated RBC (Bld) [#/Vol] 10*3/uL Normal <0.01 [facility] Comment on above: Order Comment: Speci men Type: BLOOD SPECIMENOrdering Facility: [facility] Address: [address] [place] [address] Performed By: #### 5 7021-8 ####[facility]OS[facility]ITALKALIELetha [id number] [place] [address] [place] Nucleated RBC/100 WBC (Bld) [Ratio] 0.0 /100 WBC Normal [facility] Comment on above: Order Comment: Speci men Type: BLOOD SPECIMENOrdering Facility: [facility] Address: [address] [place] [address] Performed By: #### 5 7021-8 ####[facility]OS[facility]ITALKALIELIA [id number] [place] [address] [place] Platelet mean volume (Bld) [Entitic vol] 8.5 fL Low 9.0-12.7 [facility] Comment on above: Order Comment: Speci men Type: BLOOD SPECIMENOrdering Facility: [facility] Address: [address] [place] [address] Performed By: #### 5 7021-8 ####[facility]ITALNCLIA [id number] [place] [address] [place] Platelets (Bld) [#/Vol] 275 10*3/uL Normal 150-400 [facility] Comment on above: Order Comment: Speci men Type: BLOOD SPECIMENOrdering Facility: [facility] Address: [address] [place] [address] Performed By: #### 5 7021-8 ####[facility] HOSPITALNCA [id number] [place] [address] [place] RBC (Bld) [#/Vol] 3.73 10*6/uL Low 3.90-5.20 [facility] Comment on above: Order Comment: Speci men Type: BLOOD SPECIMENOrdering Facility: [facility] Address: [address] [place] [address] Performed By: #### 5 7021-8 ####[facility] HOSPITALNCA [id number] [place] [address] [place] WBC (Bld) [#/Vol] 7.40 10*3/uL Normal 3.70-11.00 [facility] Comment on above: Order Comment: Speci men Type: BLOOD SPECIMENOrdering Facility: [facility] Address: [address] [place] [address] Performed By: #### 5 7021-8 ####[facility]ITALNCLIA [id number] [place] [address] [place] CEA SerPl-mCncon 11-18-2024 Carcinoembryonic Ag [Mass/Vol] 15.1 ng/mL High <=2.9 [facility] Comment on above: Order Comment: Speci men Type: BLOOD SPECIMENOrdering Facility: [facility] Address: [address] [place] [address] Result Comment: Carc inoembryonic antigen test is used as an aid in monitoring response to treatment or recurrence in patients with established colorectal, breast, lung, prostatic, pancreatic, and ovarian carcinomas. Clinical correlation is required.The Carcinoembryonic antigen test was performed using the Digilabel DXI paramagnetic particle chemiluminescent immunoassay method. Results obtained with different assay methods or kits cannot be used interchangeably. Performed By: #### 2 039-6 ####[facility] LABCLIA [id number] [place] [address] [place] CNOVSPon 11-18-2024 CNOVSP Normal [facility] CNPNon 11-18-2024 CNPN Normal [facility] Comprehensive metabolic 2000 panelOrdered By: Merlyn Veloz on 11-18-2024 Albumin [Mass/Vol] 4.2 g/dL 3.9 - 4.9 g/dL [facility] ALP [Catalytic activity/Vol] 81 U/L 34 - 123 U/L [facility] ALT [Catalytic activity/Vol] 8 U/L 7 - 38 U/L [facility] Anion gap [Moles/Vol] 14 mmol/L 8 - 15 mmol/L [facility] AST [Catalytic activity/Vol] 17 U/L 13 - 35 U/L [facility] Bilirubin [Mass/Vol] 0.3 mg/dL 0.2 - 1 .3 mg/dL [facility] Calcium [Mass/Vol] 9.2 mg/dL 8.5 - 10. 2 mg/dL [facility] Chloride [Moles/Vol] 106 mmol/L 98 - 10 7 mmol/L [facility] CO2 [Moles/Vol] 20 mmol/L Low 22 - 30 mmol/L [facility] Creatinine [Mass/Vol] 0.69 mg/dL 0.58 - 0.96 mg/dL [facility] GFR/1.73 sq M.predicted among non-blacks MDRD (S/P/Bld) [Vol rate/Area] 96 mL/min/{1.73_m2} - PINF [facility] [facility] Comment on above: Estimated Glomerular Filtration Rate (eGFR) is calculated using the 2020 CKD-EPI creatinine equation. This equation utilizes serum creatinine, sex, and age as parameters. The creatinine assay has traceable calibration to isotope dilution-mass spectrometry. Refer to KDIGO guidelines for clinical interpretation. In patients with unstable renal function, e.g. those with acute kidney injury, the eGFR may not accurately reflect actual GFR. Glucose [Mass/Vol] 141 mg/dL High 74 - 99 mg/dL [facility] Comment on above: The [place] Diab[employer] Association (ADA) provides guidance for cutoff values for fasting glucose and random glucose. The ADA defines fasting as no caloric intake for at least 8 hours. Fasting plasma glucose results between 100 to 125 mg/dL indicate increased risk for diabetes (prediabetes). Fasting plasma glucose results greater than or equal to 126 mg/dL meet the criteria for diagnosis of diabetes. In the absence of unequivocal hyperglycemia, results should be confirmed by repeat testing. In a patient with classic symptoms of hyperglycemia or hyperglycemic crisis, random plasma glucose results greater than or equal to 200 mg/dL meet the criteria for diagnosis of diabetes. Reference: Standards of Medical Care in Diabetes 2016, [place] [employer]. Diabetes Care. 2016.39(Suppl 1). Interpretation and review of laboratory results Abnormal [facility] Potassium [Moles/Vol] 2.6 mmol/L Low 3.7 - 5.1 mmol/L [facility] Protein [Mass/Vol] 6.9 g/dL 6.3 - 8.0 g/dL [facility] Sodium [Moles/Vol] 140 mmol/L 136 - 144 mmol/L [facility] Urea nitrogen [Mass/Vol] 20 mg/dL 7 - 21 mg/dL [facility] Comprehensive metabolic 2000 panelon 11-18-2024 Albumin [Mass/Vol] 4.2 g/dL Normal 3.9-4.9 [facility] Comment on above: Order Comment: Abdouli men Type: BLOOD SPECIMENOrdering Facility: [facility] Address: [address] [place], [place] [address] Performed By: #### 2 4323-8, ####[facility] [id number] [place] [address] [place] [facility] ALP [Catalytic activity/Vol] 81 U/L Normal 34-123 [facility] Comment on above: Order Comment: Speci men Type: BLOOD SPECIMENOrdering Facility: [facility] Address: [address] [place] [address] Performed By: #### 2 4323-8, ####[facility] [id number] [place] [address] [place] ALT [Catalytic activity/Vol] 8 U/L Normal 7-38 [facility] Comment on above: Order Comment: Speci men Type: BLOOD SPECIMENOrdering Facility: [facility] Address: [address] [place] [address] Performed By: #### 2 4323-8, ####[facility] [id number] [place] [address] [place] Anion gap [Moles/Vol] 14 mmol/L Normal 8-15 [facility] Comment on above: Order Comment: Speci men Type: BLOOD SPECIMENOrdering Facility: [facility] Address: [address] [place] [address] Performed By: #### 2 4323-8, ####[facility] [id number] [place] [address] [place] AST [Catalytic activity/Vol] 17 U/L Normal 13-35 [facility] Comment on above: Order Comment: Speci men Type: BLOOD SPECIMENOrdering Facility: [facility] Address: [address] [place] [address] Performed By: #### 2 4323-8, ####[facility] [id number] [place] [address] [place] Bilirubin [Mass/Vol] 0.3 mg/dL Normal 0.2-1.3 [facility] Comment on above: Order Comment: Speci men Type: BLOOD SPECIMENOrdering Facility: [facility] Address: [address] [place] [address] Performed By: #### 2 4323-8, ####[facility] [id number] [place] [address] [place] Calcium [Mass/Vol] 9.2 mg/dL Normal 8.5-10.2 [facility] Comment on above: Order Comment: Speci men Type: BLOOD SPECIMENOrdering Facility: [facility] Address: [address] [place] [address] Performed By: #### 2 4323-8, 01536-0 ####[facility] BISHNURENONCKELSIE [id number] [place] [address] [place] Chloride [Moles/Vol] 106 mmol/L Normal 98-107 [facility] Comment on above: Order Comment: Speci men Type: BLOOD SPECIMENOrdering Facility: [facility] Address: [address] [place] [address] Performed By: #### 2 4323-8, 97582-7 ####[facility]ITALNCKELSIE [id number] [place] [address] [place] CO2 [Moles/Vol] 20 mmol/L Low 22-30 [facility] Comment on above: Order Comment: Speci men Type: BLOOD SPECIMENOrdering Facility: [facility] Address: [address] [place] [address] Performed By: #### 2 4323-8, 42099-6 ####[facility]ITALGUMEA [id number] [place] [address] [place] Creatinine [Mass/Vol] 0.69 mg/dL Normal 0.58-0.96 [facility] Comment on above: Order Comment: Speci men Type: BLOOD SPECIMENOrdering Facility: [facility] Address: [address] [place] [address] Performed By: #### 2 4323-8, ####[facility]NCL[facility] [id number] [place] [address] [place] eGFRcr SerPlBld CKD-EPI 2020 96 mL/min/1.73m??? Normal >=60 [facility] Comment on above: Order Comment: Speci men Type: BLOOD SPECIMENOrdering Facility: [facility] Address: [address] [place] [address] Result Comment: Sana mated Glomerular Filtration Rate (eGFR) is calculated using the 2020 CKD-EPI creatinine equation. This equation utilizes serum creatinine, sex, and age as parameters. The creatinine assay has traceable calibration to isotope dilution-mass spectrometry. Refer to KDIGO guidelines for clinical interpretation. In patients with unstable renal function, e.g. those with acute kidney injury, the eGFR may not accurately reflect actual GFR. Performed By: #### 2 4323-8, ####[facility] [id number] [place] [address] [place] Glucose [Mass/Vol] 141 mg/dL High 74-99 [facility] Comment on above: Order Comment: Umesh baugh Type: BLOOD SPECIMENOrdering Facility: [facility] Address: [address] [place] [address] Result Comment: The [place] Diabetes Association (ADA) provides guidance for cutoff values for fasting glucose and random glucose. The ADA defines fasting as no caloric intake for at least 8 hours. Fasting plasma glucose results between 100 to 125 mg/dL indicate increased risk for diabetes (prediabetes).Fasting plasma glucose results greater than or equal to 126 mg/dL meet the criteria for diagnosis of diabetes. In the absence of unequivocal hyperglycemia, results should be confirmed by repeat testing. In a patient with classic symptoms of hyperglycemia or hyperglycemic crisis, random plasma glucose results greater than or equal to 200 mg/dL meet the criteria for diagnosis of diabetes.Reference: Standards of Medical Care in Diabetes 2016, [place] [employer]. Diabetes Care. 2016.39(Suppl 1). Performed By: #### 2 4323-8, ####[facility] [id number] [place] [address] [place] Potassium [Moles/Vol] 2.6 mmol/L Low 3.7-5.1 [facility] Comment on above: Order Comment: Umesh baugh Type: BLOOD SPECIMENOrdering Facility: [facility] Address: [address] [place] [address] Performed By: #### 2 4323-8, ####[facility] MILLWNCLIA [id number] [place] [address] [place] Protein [Mass/Vol] 6.9 g/dL Normal 6.3-8.0 [facility] Comment on above: Order Comment: Speci men Type: BLOOD SPECIMENOrdering Facility: [facility] Address: [address] [place] [address] Performed By: #### 2 4323-8, ####[facility]ENTERL[facility] [id number] [place] [address] [place] Sodium [Moles/Vol] 140 mmol/L Normal 136-144 [facility] Comment on above: Order Comment: Speci men Type: BLOOD SPECIMENOrdering Facility: [facility] Address: [address] [place] [address] Performed By: #### 2 4323-8, ####[facility]ENTERLIA [id number] [place] [address] [place] Urea nitrogen [Mass/Vol] 20 mg/dL Normal 7-21 [facility] Comment on above: Order Comment: Speci men Type: BLOOD SPECIMENOrdering Facility: [facility] Address: [address] [place] [address] Performed By: #### 2 4323-8, ####[facility]ENTERLIA [id number] [place] [address] [place] MAGNESIUMon 11-18-2024 Magnesium [Mass/Vol] 1.8 mg/dL 1.7 - 2 .3 mg/dL [facility] Magnesium SerPl-mCncon 11-18 Magnesium [Mass/Vol] 1.8 mg/dL Normal 1.7-2.3 [facility] Comment on above: Order Comment: Speci men Type: BLOOD SPECIMENOrdering Facility: [facility] Address: [address] [place] [address] Performed By: #### 2 4323-8, 31495-3 ####[facility]ATIONLI [id number] [place] [address] [place] Magnesium [Mass/Vol]on 11-18 Interpretation and review of laboratory results Normal [facility] No Panel InformationOrdered By: Merlyn Veloz on 11-18-2024 [facility] PT panel Coag (PPP)on 2024 INR Coag (PPP) [Relative time] 1.0 {INR} 0.9 - 1.3 [facility] Comment on above: Vitamin K Antagonist (VKA) Therapeutic Range: INR 2 to 3 (Target INR of 2.5) Note: For patients treated with VKA drugs, such as warfarin, the [place] [employer] 2012 Guideline recommends a therapeutic INR range of 2 to 3 (target INR of 2.5). This recommendation includes high-risk patients with antiphospholipid syndrome with previous arterial or venous thromboembolism, current-generation mechanical or bioprosthetic aortic heart valve replacement. Note: Patients with mechanical aortic valve replacement and additional risk factors for thromboembolic events (atrial fibrillation, previous thromboembolism, LV dysfunction, hypercoagulable conditions) or an older generation mechanical AVR (i.e., ball in-Cage) or any mechanical MVR should have a INR therapeutic range of 2.5 to 3.5 (target INR of 3). Summer HARRIS, et al. Chest 2012, 141:7S-47S Jermain RA, et al. [facility] 2017, 70: 252-289 Interpretation and review of laboratory results Normal [facility] PT Coag (PPP) [Time] 10.4 s NINF [facility] INR Coag (PPP) [Relative time] 1.0 {INR} Normal 0.9-1.3 [facility] Comment on above: Order Comment: Speci men Type: BLOOD SPECIMENOrdering Facility: [facility] Address: [address] [place] [address] Result Comment: Edwige min K Antagonist (VKA) Therapeutic Range: INR 2 to 3 (Target INR of 2.5)Note: For patients treated with VKA drugs, such as warfarin, the [place] [employer] 2012 Guideline recommends a therapeutic INR range of 2 to 3 (target INR of 2.5). This recommendation includes high-risk patients with antiphospholipid syndrome with previous arterial or venous thromboembolism, current-generation mechanical or bioprosthetic aortic heart valve replacement.Note: Patients with mechanical aortic valve replacement and additional risk factors for thromboembolic events (atrial fibrillation, previous thromboembolism, LV dysfunction, hypercoagulable conditions) or an older generation mechanical AVR (i.e., ball in-Cage) or any mechanical MVR should have a INR therapeutic range of 2.5 to 3.5 (target INR of 3).Summer HARRIS, et al. Chest 2012, 141:7S-47SJermain RA, et al. [facility] 2017, 70: 252-289 Performed By: #### 3 4528-0 ####[facility] [id number] [place] [address] [place] PT Coag (PPP) [Time] 10.4 s Normal <13.1 [facility] Comment on above: Order Comment: Speci men Type: BLOOD SPECIMENOrdering Facility: [facility] Address: [address] [place] [address] Performed By: #### 3 4528-0 ####[facility] [id number] [place] [address] [place] CNPNon 11-13-2024 CNPN Normal [facility] CNPNon 11-11-2024 CNPN Normal [facility] Basic Metabolic Profile (BMP )on 11-09-2024 BUN Normal 07-13 [facility] Comment on above: Result Comment: Canc elled via OM: Order cancelled - Patient discharged Performed By: #### L 9100.0200 #### [facility] [address] [place], [place], [id number] BUN/CRE Normal 01-13 [facility] Comment on above: Result Comment: Canc elled via OM: Order cancelled - Patient discharged Performed By: #### L 9100.0200 #### [facility] [address] [place], [address] Calcium Normal 7.6-11.0 [facility] Comment on above: Result Comment: Canc elled via OM: Order cancelled - Patient discharged Performed By: #### L 9100.0200 #### [facility] [address] [place], [address] CL Normal 98-108 [facility] Comment on above: Result Comment: Canc elled via OM: Order cancelled - Patient discharged Performed By: #### L 9099.0200 #### [facility] [address] [place], [address] CO2 Normal 21.0-32.0 [facility] Comment on above: Result Comment: Canc elled via OM: Order cancelled - Patient discharged Performed By: #### L 9099.0200 #### [facility] [address] [place], [address] CREAT,SERUM Normal 0.70-1.20 [facility] Comment on above: Result Comment: Canc elled via OM: Order cancelled - Patient discharged Performed By: #### L 9099.0200 #### [facility] [address] [place], [address] eGFR Normal >60 [facility] Comment on above: Result Comment: Canc elled via OM: Order cancelled - Patient discharged Performed By: #### L 9099.0200 #### [facility] [address] [place], [address] GAP Normal 5-15 [facility] Comment on above: Result Comment: Canc elled via OM: Order cancelled - Patient discharged Performed By: #### L 9099.0200 #### [facility] [address] [place], [address] GLU Normal 70-99 [facility] Comment on above: Result Comment: Canc elled via OM: Order cancelled - Patient discharged Performed By: #### L 9100.0200 #### [facility] [address] [place], [address] Potassium Normal 3.3-5.1 [facility] Comment on above: Result Comment: Canc elled via OM: Order cancelled - Patient discharged Performed By: #### L 9100.0200 #### [facility] [address] [place], [address] Basic Metabolic Profile (BMP) Normal 133-145 [facility] Comment on above: Result Comment: Canc elled via OM: Order cancelled - Patient discharged Performed By: #### L 9100.0200 #### [facility] [address] [place], [address] CBC-Complete Blood Cnt No Di ffon 11-09-2024 HCT Normal 37-47 [facility] Comment on above: Result Comment: Canc elled via OM: Order cancelled - Patient discharged Performed By: #### L 00.0200 #### [facility] [address] [place], [address] HGB Normal 12.0-15.0 [facility] Comment on above: Result Comment: Canc elled via OM: Order cancelled - Patient discharged Performed By: #### L 9100.0200 #### [facility] [address] [place], [address] MCH Normal 27.0-32.0 [facility] Comment on above: Result Comment: Canc elled via OM: Order cancelled - Patient discharged Performed By: #### L 9100.0200 #### [facility] [address] [place], [address] MCHC Normal 32-36 [facility] Comment on above: Result Comment: Canc elled via OM: Order cancelled - Patient discharged Performed By: #### L 9100.0200 #### [facility] [address] [place], [address] MCV Normal 81-99 [facility] Comment on above: Result Comment: Canc elled via OM: Order cancelled - Patient discharged Performed By: #### L 9100.0200 #### [facility] [address] [place], [address] PLT Normal 150-450 [facility] Comment on above: Result Comment: Canc elled via OM: Order cancelled - Patient discharged Performed By: #### L 9100.0200 #### [facility] [address] [place], [address] RBC Normal 4.2-5.4 [facility] Comment on above: Result Comment: Canc elled via OM: Order cancelled - Patient discharged Performed By: #### L 00.0200 #### [facility] [address] [place], [address] RDW CV Normal 11.6-14.6 [facility] Comment on above: Result Comment: Canc elled via OM: Order cancelled - Patient discharged Performed By: #### L 9100.0200 #### [facility] [address] [place], [address] RDW SD Normal 35.1-43.9 [facility] Comment on above: Result Comment: Canc elled via OM: Order cancelled - Patient discharged Performed By: #### L 9100.0200 #### [facility] [address] [place], [address] WBC Normal 4.4-11.0 [facility] Comment on above: Result Comment: Canc elled via OM: Order cancelled - Patient discharged Performed By: #### L 9100.0200 #### [facility] [address] [place], [address] Absolute lymphocyte countOrd ered By: Annette Mendez on 11-08-2024 Lymphocytes Auto (Unsp spec) [#/Vol] 1.82 10*3/uL 0.83-4.51 [facility] Absolute neutrophil countOrd ered By: Annette Mendez on 11-08-2024 Neutrophils (Bld) [#/Vol] 9.5 10*3/uL High 2.0-7.7 [facility] Anion gap in Serum or Plasma Ordered By: Annette Mendez on 11-08-2024 Anion gap [Moles/Vol] 9 mmol/L 08-[address] [facility] Automated lymphocyte count a s percentage of total leukocytesOrdered By: Annette Mendez on 11-08-2024 Lymphocytes/100 WBC Auto (Unsp spec) 15.0 % Low 19-41 [facility] BUN/creatinine ratioOrdered By: Annette Mendez on 11-08-2024 Urea nitrogen/Creatinine [Mass ratio] 27.7 mg/mg High 10- [facility] Basophil percentageOrdered B y: Annette Mendez on 11-08-2024 Basophils/100 WBC (Bld) 0.2 % 0- [facility] Bilirubin, totalOrdered By: Annette Mendez on 11-08-2024 Bilirubin [Mass/Vol] 0.31 mg/dL 0.00-1.30 [facility] CBC W/Diff, Automatedon 10-25 Absolute Lymph 1.82 X10 3/uL Normal 0.83-4.51 [facility] Comment on above: Performed By: #### L 9100.0200 #### [facility] [address] [place], [address] Absolute Neut 9.5 X10 3/uL High 2.0-7.7 [facility] Comment on above: Performed By: #### L 9100.0200 #### [facility] [address] [place], [address] Basophils/100 WBC (Bld) 0.2 % Normal 0-1 [facility] Comment on above: Performed By: #### L 9100.0200 #### [facility] [address] [place], [address] Eosinophils/100 WBC (Bld) 0.0 % Normal 0-5 [facility] Comment on above: Performed By: #### L 9100.0200 #### [facility] [address] [place], [address] Erythrocyte distribution width (RBC) [Ratio] 13.8 % Normal 11.6-14.6 [facility] Comment on above: Performed By: #### L 9100.0200 #### [facility] [address] [place], [address] Hematocrit (Bld) [Volume fraction] 27.5 % Low 37-47 [facility] Comment on above: Performed By: #### L 91.0200 #### [facility] [address] [place], [address] Hemoglobin (Bld) [Mass/Vol] 9.1 g/dL Low 12.0-15.0 [facility] Comment on above: Performed By: #### L 9100.0200 #### [facility] [address] [place], [address] IG% 0.700 Normal 0.0-0.9 [facility] Comment on above: Result Comment: IG% - Immature Granulocytes (promyelocytes, myelocytes and metamyelocytes) > 1% indicates that a LEFT SHIFT is Present. Performed By: #### L 91.0200 #### [facility] [address] [place], [address] Lymphocytes/100 WBC (Bld) 15.0 % Low 19-41 [facility] Comment on above: Performed By: #### L 9100.0200 #### [facility] [address] [place], [address] MCH (RBC) [Entitic mass] 29.8 pg Normal 27.0-32.0 [facility] Comment on above: Performed By: #### L 91.0200 #### [facility] [address] [place], [address] MCHC (RBC) [Mass/Vol] 33.1 g/dL Normal 32-[address] [facility] Comment on above: Performed By: #### L 9100.0200 #### [facility] [address] [place], [address] MCV (RBC) [Entitic vol] 90.2 fL Normal 81-99 [facility] Comment on above: Performed By: #### L 91.0200 #### [facility] [address] [place], [address] Monocytes/100 WBC (Bld) 6.4 % Normal 0-10 [facility] Comment on above: Performed By: #### L 91.0200 #### [facility] [address] [place], [address] Neutrophils/100 WBC (Bld) 77.7 % High 47-70 [facility] Comment on above: Performed By: #### L 91.0200 #### [facility] [address] [place], [address] Nucleated RBC (Bld) [#/Vol] 0 10*3/uL Normal 0-5 [facility] Comment on above: Performed By: #### L 9100.0200 #### [facility] [address] [place], [address] Platelet mean volume (Bld) [Entitic vol] 9.2 fL Normal 6.2-12.0 [facility] Comment on above: Performed By: #### L 9100.0200 #### [facility] [address] [place], [address] Platelets (Bld) [#/Vol] 228 10*3/uL Normal 150-450 [facility] Comment on above: Performed By: #### L 9100.0200 #### [facility] [address] [place], [address] RBC (Bld) [#/Vol] 3.05 10*6/uL Low 4.2-5.4 [facility] Comment on above: Performed By: #### L 9100.0200 #### [facility] [address] [place], [address] RDW SD 45.4 fl High 35.1-43.9 [facility] Comment on above: Performed By: #### L 9100.0200 #### [facility] [address] [place], [address] WBC (Bld) [#/Vol] 12.2 10*3/uL High 4.4-11.0 [facility] [facility] Comment on above: Performed By: #### L 9100.0200 #### [facility] [address] [place], [address] CNPNon 11-08-2024 CNPN Normal [facility] Carbon dioxide, total [Moles /volume] in Central venous bloodOrdered By: Annette Mendez on 11-08-2024 CO2 [Moles/Vol] 22.4 mmol/L 21.0-32.0 [facility] Chloride assayOrdered By: Ramses Mendez on 11-08-2024 Chloride [Moles/Vol] 109 mmol/L High 98-108 [facility] Comprehensive Metabolic Prof ilon 11-08-2024 Albumin [Mass/Vol] 3.2 g/dL Low 3.4-4.8 [facility] Comment on above: Performed By: #### L 9100.0200 #### [facility] [address] [place], [address] Albumin/Globulin [Mass ratio] 1.6 {ratio} Normal 0.9-2.4 [facility] Comment on above: Performed By: #### L 9100.0200 #### [facility] [address] [place], [address] ALK PHOS 52 U/L Normal 35-104 [facility] Comment on above: Performed By: #### L 9100.0200 #### [facility] [address] [place], [address] ALT [Catalytic activity/Vol] 10 U/L Normal <=34 [facility] Comment on above: Performed By: #### L 91.0200 #### [facility] [address] [place], [address] AST [Catalytic activity/Vol] 22 U/L Normal <=31 [facility] Comment on above: Performed By: #### L 9099.0200 #### [facility] [address] [place], [address] Bilirubin [Mass/Vol] 0.31 mg/dL Normal 0.00-1.30 [facility] Comment on above: Performed By: #### L 9099.0200 #### [facility] [address] [place], [address] BUN/CRE 27.7 RATIO High 10-20 [facility] Comment on above: Performed By: #### L 00.0200 #### [facility] [address] [place], [address] Calcium [Mass/Vol] 8.2 mg/dL Normal 7.6-11.0 [facility] Comment on above: Performed By: #### L 00.0200 #### [facility] [address] [place], [address] Chloride [Moles/Vol] 109 mmol/L High 98-108 [facility] Comment on above: Performed By: #### L 9099.0200 #### [facility] [address] [place], [address] CO2 [Moles/Vol] 22.4 mmol/L Normal 21.0-32.0 [facility] Comment on above: Performed By: #### L 9100.0200 #### [facility] [address] [place], [address] Creatinine [Mass/Vol] 0.53 mg/dL Low 0.70-1.[address] [facility] Comment on above: Performed By: #### L 9100.0200 #### [facility] [address] [place], [address] ECRCL 44.68 ml/min Low 50-250 [facility] Comment on above: Performed By: #### L 9100.0200 #### [facility] [address] [place], [address] GAP 9 Normal 5-15 [facility] Comment on above: Performed By: #### L 9100.0200 #### [facility] [address] [place], [address] GFR/1.73 sq M.predicted among non-blacks MDRD (S/P/Bld) [Vol rate/Area] 103 mL/min/{1.73_m2} Normal >60 [facility] Comment on above: Result Comment: mL/m in/1.73m2 CKD-EPI Creatinine Equation (2020) Performed By: #### L 9100.0200 #### [facility] [address] [place], [address] Globulin (S) [Mass/Vol] 2.0 g/dL Low 2.2-4.2 [facility] Comment on above: Performed By: #### L 9100.0200 #### [facility] [address] [place], [address] Glucose [Mass/Vol] 98 mg/dL Normal 70-99 [facility] Comment on above: Performed By: #### L 9100.0200 #### [facility] [address] [place], [address] Potassium [Moles/Vol] 3.8 mmol/L Normal 3.3-5.[address] [facility] Comment on above: Performed By: #### L 9100.0200 #### [facility] [address] [place], [address] Sodium [Moles/Vol] 140 mmol/L Normal 133-145 [facility] Comment on above: Performed By: #### L 9100.0200 #### [facility] [address] [place], [address] T PROT 5.3 g/dL Low 5.9-8.4 [facility] Comment on above: Performed By: #### L 9100.0200 #### [facility] [address] [place], [address] Urea nitrogen [Mass/Vol] 15 mg/dL Normal 4-19 [facility] Comment on above: Performed By: #### L 9100.0200 #### [facility] [address] [place], [address] Discharge Instructionon 10-25 Discharge Instruction [facility] Medical Records Department [address] [place] [address] Instructions for Home/Discharge Instructions 11/08/24 1131 MR#: [id number] Acct: [id number] Name: LAKESHA KOCH ILENE Rep #: [id number] : 1960 64 From: Saroj Puga DO PCP: Aubrey Lopez MECHANIC SENIOR-C Status:ADM IN Discharge Instructions DC O2, CPAP, BIPAP needs Home O2 Discharge instructions: No Dressing / Incision Discharge Activity: No Restrictions Follow Up Care Test Results: Test results from this visit will be discussed in further detail at your follow-up appointment, if applicable. Discharge Plan Admission Admit Date/Time: 11/07/24 15:14 Primary Reason for Your Visit: abdominal pain w/ diarrhea Attending Provider: Saroj Puga Primary Care Provider: Aubrey Lopez Consulting Providers: Annette Mendez Discharge Orders/Prescriptions Prescriptions: New vancomycin [Firvanq] 25 mg/mL Recon Soln 125 mg PO Q6 9 Days Qty: 180 0RF Continued sertraline 50 mg tablet 50 mg PO DAILY alendronate 70 mg tablet 70 mg PO QWEEK Patient Comments: Take once a week on Saturdays. buspirone 7.5 mg tablet 7.5 mg PO DAILY hydromorphone 2 mg Tablet 2 - 4 mg PO Q4H PRN PRN (Reason: PAIN 6-10) 7 Days Qty: 42 0RF methocarbamol 750 mg Tablet 750 mg PO Q8 30 Days Qty: 90 0RF lidocaine 5 % Adhesive Patch,Medicated 2 patch topical DAILY 30 Days Qty: 60 0RF gabapentin 100 mg Capsule 100 mg PO QHS 30 Days Qty: 30 0RF ondansetron 4 mg Tablet,Disintegrating 4 mg PO Q8H PRN PRN (Reason: Nausea) 30 Days Qty: 90 0RF hydroxyzine pamoate 25 mg Capsule 50 mg PO TID PRN PRN (Reason: Itching) 30 Days Qty: 90 0RF Discontinued acetaminophen 500 mg Tablet 1,000 mg PO Q8 Qty: 0 0RF Referrals / Follow Up: Aubrey Lopez, MECHANIC SENIOR-C [Primary Care Provider] - Disposition Disposition (needs filled in before D/C Order can be placed): Home, Self Care 11/08/24 1133 Saroj Edd BATISTA CC: Dr. Annette Mendez MD; Aubrey Tana MECHANIC SENIOR-C Jessica Signed Normal [facility] Eosinophil percentageOrdered By: Annette Mendez on 11-08-2024 Eosinophils/100 WBC (Bld) 0.0 % 0-5 [facility] Erythrocyte distribution wid th ratioOrdered By: Annette Mendez on 11-08-2024 Erythrocyte distribution width (RBC) [Ratio] 13.8 % 11.6-14.6 [facility] Erythrocyte distribution wid th standard deviationOrdered By: Annette Mendez on 11-08-2024 Erythrocyte distribution width (RBC) [Ratio] 45.4 fl High 35.1-43.9 [facility] Glomerular filtration rate ( GFR) estimation/1.73 sq m using serum, plasma, or whole bOrdered By: Annette Mendez on 11-08-2024 GFR/1.73 sq M.predicted among non-blacks MDRD (S/P/Bld) [Vol rate/Area] 103 mL/min/{1.73_m2} >60 [facility] Comment on above: mL/min/1.73m2 CKD-EP I Creatinine Equation (2020) Hematocrit Auto (Bld) [Volum e fraction]Ordered By: Annette Mendez on 11-08-2024 Hematocrit (Bld) [Volume fraction] 27.5 % Low 37-47 [facility] Hemoglobin measurementOrdere d By: Annette Mendez on 11-08-2024 Hemoglobin (Bld) [Mass/Vol] 9.1 g/dL Low 12.0-15.0 [facility] Immature granulocytes/100 WB C Auto (Bld)Ordered By: Annette Mendez on 11-08-2024 Immature granulocytes/100 WBC (Bld) 0.700 % 0.0-0.9 [facility] Comment on above: IG% - Immature Granu locytes (promyelocytes, myelocytes and metamyelocytes) > 1% indicates that a LEFT SHIFT is Present. International normalized rat io (INR) calculationOrdered By: Annette Mendez on 11-08-2024 INR Coag (Bld) [Relative time] 1.1 {INR} [facility] - Chemistry and C hemistry - challengeOrdered By: Annette Mendez 11-08-2024 AST [Catalytic activity/Vol] 22 U/L <32 [facility] MCV (mean corpuscular volume ) determinationOrdered By: Annette Mendez 11-08-2024 MCV (RBC) [Entitic vol] 90.2 fL 81-99 [facility] Mean corpuscular hemoglobin (MCH) determinationOrdered By: Annette Mendez on 11-08-2024 MCH (RBC) [Entitic mass] 29.8 pg 27.0-32.0 [facility] Mean corpuscular hemoglobin concentration (MCHC) determinationOrdered By: Annette Mendez 11-08-2024 MCHC (RBC) [Mass/Vol] 33.1 g/dL 32-[address] [facility] Mean platelet volume determi nationOrdered By: Annette Mendez 11-08-2024 Platelet mean volume (Bld) [Entitic vol] 9.2 fL 6.2-12.0 [facility] Monocyte percentageOrdered B y: Annette Mendez on 11-08-2024 Monocytes/100 WBC (Bld) 6.4 % 0-10 [facility] Neutrophil percentageOrdered By: Annette Mendez on 11-08-2024 Neutrophils/100 WBC (Bld) 77.7 % High 47-70 [facility] Nucleated red blood cell per centageOrdered By: Annette Mendez on 11-08-2024 Nucleated RBC/100 WBC (Bld) [Ratio] 0 % 0-5 [facility] Platelet countOrdered By: Ramses Mendez on 11-08-2024 Platelets (Bld) [#/Vol] 228 10*3/uL 150-450 [facility] Potassium measurement (mass/ volume)Ordered By: Annette Mendez on 11-08-2024 Potassium (Unsp spec) [Mass/Vol] 3.8 mmol/L 3.3-5.1 [facility] Prothrombin Time w/INRon INR Coag (PPP) [Relative time] 1.1 {INR} Normal [facility] Comment on above: Performed By: #### L 9100.0200 #### [facility] [address] [place], [place], [id number] PT Coag (PPP) [Time] 13.9 s Normal 11.7-14.9 [facility] Comment on above: Performed By: #### L 9100.0200 #### [facility] [address] [place], [address] Prothrombin timeOrdered By: Annette Mendez on 11-08-2024 PT Coag (PPP) [Time] 13.9 s 11.7-14.9 [facility] RBC Auto (Bld) [#/Vol]Ordere d By: Annette Mendez on 11-08-2024 RBC (Bld) [#/Vol] 3.05 10*6/uL Low 4.2-5.4 [facility] Serum creatinine measurement (mass/volume)Ordered By: Annette Mendez on 11-08-2024 Creatinine [Mass/Vol] 0.53 mg/dL Low 0.70-1.[address] [facility] Serum globulin measurementOr dered By: Annette Mendez on 11-08-2024 Globulin (S) [Mass/Vol] 2.0 g/dL Low 2.2-4.2 [facility] Serum glucose measurement (m ass/volume)Ordered By: Annette Mendez on 11-08-2024 Glucose [Mass/Vol] 98 mg/dL 70-99 [facility] Serum or plasma alanine ramirez otransferase (ALT) measurementOrdered By: Annette Mendez on 11-08-2024 ALT [Catalytic activity/Vol] 10 U/L <35 [facility] Serum or plasma albumin renetta urement (mass/volume)Ordered By: Annette Mendez on 11-08-2024 Albumin [Mass/Vol] 3.2 g/dL Low 3.4-4.8 [facility] Serum or plasma albumin/glob ulin mass ratioOrdered By: Annette Mendez on 11-08-2024 Albumin/Globulin [Mass ratio] 1.6 {ratio} 0.9-2.4 [facility] Serum or plasma alkaline marquez sphatase measurementOrdered By: Annette Mendez on 11-08-2024 ALP [Catalytic activity/Vol] 52 U/L 35-104 [facility] Serum or plasma calcium renetta urement (mass/volume)Ordered By: Annette Mendez on 11-08-2024 Calcium [Mass/Vol] 8.2 mg/dL 7.6-11.0 [facility] Serum or plasma urea nitroge n measurement (mass/volume)Ordered By: Annette Mendez on 11-08-2024 Urea nitrogen [Mass/Vol] 15 mg/dL 4-19 [facility] Sodium levelOrdered By: Sparkle Mendez on 11-08-2024 Sodium [Moles/Vol] 140 mmol/L 133-145 [facility] Total proteinOrdered By: Daiana Mendez on 11-08-2024 Protein [Mass/Vol] 5.3 g/dL Low 5.9-8.4 [facility] White blood cell (WBC) count Ordered By: Annette Mendez on 11-08-2024 WBC (Bld) [#/Vol] 12.2 10*3/uL High 4.4-11.0 [facility] Abdomen/Pelvis W IV Cont ONL Yon 11-07-2024 Abdomen/Pelvis W IV Cont ONLY [facility] Imaging Services [address] [place], [place] [address] Abdomen/Pelvis W IV Cont ONLY MR#: [id number] Acct: [id number] Name: LAKESHA KOCH Rep #: [id number] : 1960 F 64 From: Nael doe MD PCP: Aubrey Lopez [facility] MECHANIC SENIOR-C Status: REG ER Study: Abdomen/Pelvis W IV Cont ONLY Date of Exam: Exam# [id number] Ordering Dr: Lluvia Vann MD PROCEDURE: ABDOMEN/PELVIS W IV CONT ONLY 11/07/2024 REASON FOR EXAM: ABDOMINAL PAIN History of colon carcinoma. Prior resection. TECHNIQUE: ABDOMEN/PELVIS W IV CONT ONLY Coronal and Sagittal reconstruction series were provided. CONTRAST: Isovue-300 VOLUME: 75 mL One or more dose reduction techniques were used (e.g., Automated exposure control, adjustment of the mA and/or kV according to patient size, use of iterative reconstruction technique. RADIATION DOSE SUMMARY: CTDlvol: 12.36 mGy DLP: 227.06 mGycm COMPARISON: Prior study dated September 13, 2024. FINDINGS: Lung bases: Lung bases are clear. Small pericardial effusion at the base of the heart. Liver: Since prior study, there are multiple tiny hypodense nodules with rim enhancement throughout both the right and left lobes of the liver suggestive of possible metastatic disease. If the patient is septic, these may represent multiple small abscesses. Gallbladder: There is evidence of a 4 mm dense nodule in the inferior wall of the gallbladder. Spleen: Normal size. Pancreas: Normal size without evidence of mass surrounding inflammation or ductal dilation. Adrenals: Unremarkable Kidneys: Small cyst in the upper pole of the left kidney. Small cyst in the midportion of the right kidney. Bladder: Unremarkable Reproductive Organs: Normal uterine size and contour. Ovaries are unremarkable. Bowel: The patient is status post right hemicolectomy. There is evidence of circumferential wall thickening and edematous changes seen in the transverse colon as well as the descending colon. This is suggestive of colitis. Appendix: Status post appendectomy. Lymph nodes: Unremarkable. Vasculature: Mild diffuse atherosclerotic calcifications are noted. Peritoneum / Retroperitoneum: Small amount of free fluid in the pelvis. Bones: Degenerative changes of the spine. CT/Abdomen/Pelvis W IV Cont ONLY IMPRESSION: Findings suggestive of hepatic metastasis and/or small abscesses. Clinical correlation recommended. Status post right hemicolectomy. Findings suggestive of colitis of the transverse colon and descending colon. Small amount of free fluid is seen in the pelvis. Reading Location: [place] [address] CC: Dr[facility] Lluvia Vann MD; [facility] MECHANIC SENIOR-C [employer] Translator: Signed Normal [facility] Absolute lymphocyte countOrd ered By: Lluvia Vann on 11-07-2024 Lymphocytes Auto (Unsp spec) [#/Vol] 1.12 10*3/uL 0.83-4.51 [facility] Absolute neutrophil countOrd ered By: Lluvia Vann on 11-07-2024 Neutrophils (Bld) [#/Vol] 18.0 10*3/uL High 2.0-7.7 [facility] Anion gap in Serum or Plasma Ordered By: Lluvia Vann on 11-07-2024 Anion gap [Moles/Vol] 14 mmol/L 5-[address] [facility] Automated lymphocyte count a s percentage of total leukocytesOrdered By: Lluvia Vann on 11-07-2024 Lymphocytes/100 WBC Auto (Unsp spec) 5.6 % Low 19-41 [facility] BUN/creatinine ratioOrdered By: Lluvia Vann on 11-07-2024 Urea nitrogen/Creatinine [Mass ratio] 24.9 mg/mg High 10-20 [facility] Basophil percentageOrdered B y: Lluvia Vann on 11-07-2024 Basophils/100 WBC (Bld) 0.2 % 0-1 [facility] Bilirubin Test strip Ql (U)O rdered By: Lluvia Vann on 11-07-2024 Bilirubin Ql (U) Negative Negative [facility] Bilirubin, totalOrdered By: Lluvia Vann on 11-07-2024 Bilirubin [Mass/Vol] 0.19 mg/dL 0.00-1.30 [facility] CBC W/Diff, Automatedon 10-25 Absolute Lymph 1.12 X10 3/uL Normal 0.83-4.51 [facility] Comment on above: Performed By: #### L 499.0042 #### [facility] [address] [place], [address] Absolute Neut 18.0 X10 3/uL High 2.0-7.7 [facility] Comment on above: Performed By: #### L 499.0042 #### [facility] [address] [place], [address] Basophils/100 WBC (Bld) 0.2 % Normal 0-1 [facility] Comment on above: Performed By: #### L 499.0042 #### [facility] [address] [place], [address] Eosinophils/100 WBC (Bld) 0.0 % Normal 0-5 [facility] Comment on above: Performed By: #### L 499.0042 #### [facility] [address] [place], [address] Erythrocyte distribution width (RBC) [Ratio] 13.3 % Normal 11.6-14.6 [facility] Comment on above: Performed By: #### L 499.0042 #### [facility] [address] [place], [address] Hematocrit (Bld) [Volume fraction] 30.3 % Low 37-47 [facility] Comment on above: Performed By: #### L 499.0042 #### [facility] [address] [place], [address] Hemoglobin (Bld) [Mass/Vol] 10.5 g/dL Low 12.0-15.0 [facility] Comment on above: Performed By: #### L 499.0042 #### [facility] [address] [place], [address] IG% 0.600 Normal 0.0-0.9 [facility] Comment on above: Result Comment: IG% - Immature Granulocytes (promyelocytes, myelocytes and metamyelocytes) > 1% indicates that a LEFT SHIFT is Present. Performed By: #### L 499.0042 #### [facility] [address] [place], [address] Lymphocytes/100 WBC (Bld) 5.6 % Low 19-41 [facility] Comment on above: Performed By: #### L 499.0042 #### [facility] [address] [place], [address] MCH (RBC) [Entitic mass] 30.6 pg Normal 27.0-32.0 [facility] Comment on above: Performed By: #### L 499.0042 #### [facility] [address] [place], [address] MCHC (RBC) [Mass/Vol] 34.7 g/dL Normal 32-[address] [facility] Comment on above: Performed By: #### L 499.0042 #### [facility] [address] [place], [address] MCV (RBC) [Entitic vol] 88.3 fL Normal 81-99 [facility] Comment on above: Performed By: #### L 499.0042 #### [facility] [address] [place], [address] Monocytes/100 WBC (Bld) 3.3 % Normal 0-10 [facility] Comment on above: Performed By: #### L 499.0042 #### [facility] [address] [place], [address] Neutrophils/100 WBC (Bld) 90.3 % High 47-70 [facility] Comment on above: Performed By: #### L 499.0042 #### [facility] [address] [place], [address] Nucleated RBC (Bld) [#/Vol] 0 10*3/uL Normal 0-5 [facility] Comment on above: Performed By: #### L 499.0042 #### [facility] [address] [place], [address] Platelet mean volume (Bld) [Entitic vol] 9.5 fL Normal 6.2-12.0 [facility] Comment on above: Performed By: #### L 499.0042 #### [facility] [address] [place], [address] Platelets (Bld) [#/Vol] 283 10*3/uL Normal 150-450 [facility] Comment on above: Performed By: #### L 499.0042 #### [facility] [address] [place], [address] RBC (Bld) [#/Vol] 3.43 10*6/uL Low 4.2-5.4 [facility] Comment on above: Performed By: #### L 499.0042 #### [facility] [address] [place], [address] RDW SD 42.7 fl Normal 35.1-43.9 [facility] Comment on above: Performed By: #### L 499.0042 #### [facility] [address] [place], [address] WBC (Bld) [#/Vol] 19.9 10*3/uL High 4.4-11.0 [facility] Comment on above: Performed By: #### L 499.0042 #### [facility] [address] [place], [address] CDIFF (PCR)on 11-07-2024 CDIFF Is the patient recei ving laxatives? N New/unexplained onset of 3 or more stools in past 24 hrs? Y A positive C. difficile molecular test does not differentiate between an active C. difficile infection and C. difficile colonization. Use clinical judgement and paired toxin/antigen testing to identify true infection and need for treatment. C diff DNA Spec Ql SAUNDRA+probe Reference Range: Negative Cepheid GeneXpert: polymerase chain reaction (PCR) 027 [id number] NAP1-B1 Presumptive Negative *for epidemiolologic???use C. Diff PCR A Positive-Toxigenic C. Difficile Detected A Normal [facility] Comment on above: Performed By: #### M 100.637, M100.1069, M100.2396 ####[facility] [id number] [place], [place], [id number] CNPNon 11-07-2024 CNPN Normal [facility] Carbon dioxide, total [Moles /volume] in Central venous bloodOrdered By: Lluvia Vann on 11-07-2024 CO2 [Moles/Vol] 21.4 mmol/L 21.0-32.0 [facility] Chloride assayOrdered By: Nitesh Vann on 11-07-2024 Chloride [Moles/Vol] 104 mmol/L 98-108 [facility] Clostridium Diff Toxin/Agon 11-07-2024 CDIFF (EIA) Is the patient recei ving laxatives? N New/unexplained onset of 3 or more stools in past 24 hrs? Y Interpretation of C. diff by EIA Method C diff Stl Ql POS for Antigen and NEG for Toxin = Positive for toxigenic C. Difficile gene but the active toxin production NOT detected. May be a colonized carrier or toxin level is below limit of detection. C. difficile Antigen A Positive C. diff A/B Antigen A C. difficile Toxin Negative C. diff Toxin * This is an amended result. * A prior result that was reported as final has been changed. 11/09/[address] [facility] Comment on above: Performed By: #### M 100.637, M100.1495, M100.6796 ####[facility] [address] [place], [address] Clostridium difficile detect ion by polymerase chain reactionOrdered By: Annette Mendez on 11-07-2024 C. difficile DNA SAUNDRA+probe Ql (Unsp spec) [facility] Comprehensive Metabolic Prof ilon 11-07-2024 Albumin [Mass/Vol] 3.8 g/dL Normal 3.4-4.8 [facility] Comment on above: Performed By: #### L 499.0042 #### [facility] [address] [place], [address] Albumin/Globulin [Mass ratio] 1.4 {ratio} Normal 0.9-2.4 [facility] Comment on above: Performed By: #### L 499.0042 #### [facility] [address] [place], [address] ALK PHOS 74 U/L Normal 35-104 [facility] Comment on above: Performed By: #### L 499.0042 #### [facility] [address] [place], [address] ALT [Catalytic activity/Vol] 10 U/L Normal <=34 [facility] Comment on above: Performed By: #### L 499.0042 #### [facility] [address] [place], [address] AST [Catalytic activity/Vol] 23 U/L Normal <=31 [facility] Comment on above: Performed By: #### L 499.0042 #### [facility] [address] [place], [address] Bilirubin [Mass/Vol] 0.19 mg/dL Normal 0.00-1.30 [facility] Comment on above: Performed By: #### L 499.0042 #### [facility] [address] [place], [address] BUN/CRE 24.9 RATIO High 10-20 [facility] Comment on above: Performed By: #### L 499.0042 #### [facility] [address] [place], [address] Calcium [Mass/Vol] 8.7 mg/dL Normal 7.6-11.0 [facility] Comment on above: Performed By: #### L 499.0042 #### [facility] [address] [place], [address] Chloride [Moles/Vol] 104 mmol/L Normal 98-108 [facility] Comment on above: Performed By: #### L 499.0042 #### [facility] [address] [place], [address] CO2 [Moles/Vol] 21.4 mmol/L Normal 21.0-32.0 [facility] Comment on above: Performed By: #### L 499.0042 #### [facility] [address] [place], [address] Creatinine [Mass/Vol] 0.58 mg/dL Low 0.70-1.[address] [facility] Comment on above: Performed By: #### L 499.0042 #### [facility] [address] [place], [address] ECRCL 43.16 ml/min Low 50-250 [facility] Comment on above: Performed By: #### L 499.0042 #### [facility] [address] [place], [address] GAP 14 Normal 5-15 [facility] Comment on above: Performed By: #### L 499.0042 #### [facility] [address] [place], [address] GFR/1.73 sq M.predicted among non-blacks MDRD (S/P/Bld) [Vol rate/Area] 100 mL/min/{1.73_m2} Normal >60 [facility] Comment on above: Result Comment: mL/m in/1.73m2 CKD-EPI Creatinine Equation (2020) Performed By: #### L 499.0042 #### [facility] [address] [place], [address] Globulin (S) [Mass/Vol] 2.7 g/dL Normal 2.2-4.2 [facility] Comment on above: Performed By: #### L 499.0042 #### [facility] [address] [place], [address] Glucose [Mass/Vol] 145 mg/dL High 70-99 [facility] Comment on above: Performed By: #### L 499.0042 #### [facility] [address] [place], [address] Potassium [Moles/Vol] 3.0 mmol/L Low 3.3-5.[address] [facility] Comment on above: Performed By: #### L 499.0042 #### [facility] [address] [place], [address] Sodium [Moles/Vol] 140 mmol/L Normal 133-145 [facility] Comment on above: Performed By: #### L 499.0042 #### [facility] [address] [place], [address] T PROT 6.5 g/dL Normal 5.9-8.4 [facility] Comment on above: Performed By: #### L 499.0042 #### [facility] [address] [place], [address] Urea nitrogen [Mass/Vol] 15 mg/dL Normal 4-19 [facility] Comment on above: Performed By: #### L 499.0042 #### [facility] [address] [place], [address] ENTERIC PATHOGEN PANEL STOOL on 11-07-2024 EP PANEL Is the patient recei ving laxatives? N New/unexplained onset of 3 or more stools in past 24 hrs? Y CAMPYLOBACTER Not Detected Norovirus Not Detected Rotavirus Not Detected Salmonella Not Detected Shiga Toxin Not Detected Shigella sp. Not Detected VIBRIO Not Detected Yersinia Not Detected Normal [facility] Comment on above: Performed By: #### M 100.637, M198.2319, M113.1386 ####[facility] [id number] [place], [address] Emergency Department Summary on 11-07-2024 Emergency Department Summary [facility] Medical Records Department [address] [place] [address] Emergency Department Summary 11/07/24 MR#: [id number] Acct: [id number] Name: LAKESHA KOCH Rep #: [id number] : 1960 64 From: Lluvia Vann MD PCP: Aubrey Lopez MECHANIC SENIOR-C Status:REG ER Location: ED HPI HPI - GI History of Present Illness Chief Complaint: Abd Pain Narrative Narrative: Patient is a 64-year-old female presenting to the emergency department for abdominal pain. Patient has a past medical history of recurrent colon cancer, 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, GERD, seizure disorder. History in the patient is limited in our charts however patient states that she has had 2 colon resection surgeries. Has a prior surgical history of a appendectomy as well. Patient states that she recently had a pump placed. On chart review appears to be a mediport. States that she received her first infusion yesterday and at 3 AM she developed lower abdominal pain, nausea and vomiting. She describes the vomit as nonbloody, nonbilious. Denies diarrhea, dysuria or hematuria. [facility] Medical History Seizure disorder Hypotension Marijuana abuse Alcohol dependence ETOH abuse IBS (irritable bowel syndrome) Anxiety Depression Seizure Home Medications ???Medication ???Instructions ???Recorded ???Last Taken ???Type alendronate 70 mg tablet 70 mg PO QWEEK [facility] 4 Unknown History buspirone 7.5 mg tablet 7.5 mg PO DAILY Mood 10/18/2308/25 08:50 History sertraline 50 mg tablet 50 mg PO DAILY Mood 10/18/2309/04 08:50 History acetaminophen 500 mg tablet 1,000 mg (2 x 500 mg) PO Q8 #0 tab s 09/12/24 Unknown Rx gabapentin 100 mg capsule 100 mg PO QHS 30 days #30 caps Unknown Rx hydromorphone 2 mg tablet 2 - 4 mg (1 - 2 x 2 mg) PO Q4H PRN 09/12/24 Unknown Rx PRN PAIN 6-10 7 days #42 tabs hydroxyzine pamoate 25 mg capsule 50 mg (2 x 25 mg) PO TID PRN PRN 09/12/24 Unknown Rx Itching 30 days #90 caps lidocaine 5 % topical patch 2 patch topical DAILY 30 days #60 09/12/24 Unknown Rx ea methocarbamol 750 mg tablet 750 mg PO Q8 30 days #90 tabs 08/25 12/19 Unknown Rx ondansetron 4 mg disintegrating 4 mg PO Q8H PRN PRN Nausea 30 days 09/12/24 Unknown Rx tablet #90 tabs Allergy/AdvReac Type Severity Reaction Status Date / Time erythromycin base Allergy TONGUE Verified 11/07/24 11:22 PEELS Family History Sister Melanoma Father Prostate CA Surgical History History of placement of ureteral stent History of resection of small bowel History of right salpingo-oophorectomy History of lysis of adhesions History of exploratory laparotomy 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 No acute distress. Chronically unwell appearing. HEENT: Head is normocephalic and atraumatic, sinuses nontender, pupils equal round and reactive. Nares are patent. Oropharynx and throat exams normal. Neck: Supple without lymphadenopathy nontender Cardiovascular: Regular rate and rhythm, no murmurs. No rubs or gallops. Normal S1 and S2 Respiratory: Clear to auscultation bilaterally. No wheezes, rales, rhonchi Abdominal: Soft and tender to palpation diffusely in the lower abdomen. Normal bowel sounds. No guarding or rebound. Nonsurgical abdomen Extremities: No tenderness. No bruising. Normal range of motion. Normal sensation. Skin: No rash or redness. Neurological: Cranial nerves II through XII are grossly intact. Normal strength and sensation. Normal cerebellar function The rest of the physical exam is unremarkable Const Vital Signs: 11/07/24 11:18 11/07/24 14:20 Temperature 97.4 F L Temperature Source Temporal Pulse Rate 83 85 Respiratory Rate 20 H 16 Blood Pressure 125/59 H 114/60 Blood Pressure Mean 81 78 Pulse Ox 99 99 Oxygen Delivery Method Room Air MDM MDM MDM Narrative Medical decision making narrative: Patient is a 64-year-old female presenting to emergency department for abdominal pain, nausea and vomiting. Patient was seen and examined. Vitals are stable. Patient resting in bed comfortably. No acute distress, does appear uncomfortable. Differential includes but is not limited to: Medication side effect, bowel obstruction, bowel perforation, UTI, diverticulitis (more content not included)... Normal [facility] Eosinophil percentageOrdered By: Lluvia Vann on 11-07-2024 Eosinophils/100 WBC (Bld) 0.0 % 0-5 [facility] Erythrocyte distribution wid th ratioOrdered By: Lluvia Vann on 11-07-2024 Erythrocyte distribution width (RBC) [Ratio] 13.3 % 11.6-14.6 [facility] Erythrocyte distribution wid th standard deviationOrdered By: Lluvia Vann on 11-07-2024 Erythrocyte distribution width (RBC) [Ratio] 42.7 fl 35.1-43.9 [facility] Glomerular filtration rate ( GFR) estimation/1.73 sq m using serum, plasma, or whole bOrdered By: Lluvia Vann on 11-07-2024 GFR/1.73 sq M.predicted among non-blacks MDRD (S/P/Bld) [Vol rate/Area] 100 mL/min/{1.73_m2} >60 [facility] Comment on above: mL/min/1.73m2 CKD-EP I Creatinine Equation (2020) H AND P Exam - [facility] 11-07-2024 H&P Exam - Hospitalist [facility] Medical Records Department [address] [place] [address] H P Exam - Hospitalist 11/07/24 1514 MR#: [id number] Acct: [id number] Name: LAKESHA KOCH Rep #: [id number] : 1960 64 From: Annette Mendez MD PCP: Aubrey Lopez MECHANIC SENIOR-C Status:REG ER Location: ED HPI - General General Date of Admission: 11/07/24 Date of Service: 11/07/24 Chief Complaint: Abdominal pain HPI Narrative LAKESHA KOCH, is a 64-year-old female history of recurrent colon cancer, GERD, recent port placement and first dose of chemotherapy, anxiety who presented [facility] ED 11/07/2024 for abdominal pain. She has a history of 2 colon resections at [facility] and had port placed and just started chemotherapy with first infusion yesterday and at 3 AM she developed lower abdominal pain, nausea, and vomiting. No diarrhea. In the ED temp 97.4, heart rate 83 and blood pressure 125/59, respiratory rate 20 and pulse ox 99% on room air. CBC with a white blood cell count of 19.9, hemoglobin 10.5, CMP with potassium of 3 and glucose 145, BUN 15 and creatinine 0.58 with normal liver panel, lactic 2.2 and lipase of 29. She did have CT abdomen pelvis with findings suggestive of hepatic metastasis and/or small abscesses and recommended clinical correlation, also showed findings suggestive of colitis of the transverse colon and descending colon. Patient given IV fluids and Zosyn, medications for pain control and hospitalist contacted for admission. Patient evaluated at bedside. She reports history as above and notes that she has had nausea, vomiting, diarrhea and abdominal pain more so in her lower abdomen since overnight, initially went to the out Patient [facility] and they sent her to the ED. Continues to have the pain in the lower abdomen, denies right upper quadrant or upper abdominal pain, denies any fevers at home, no cough, chest pain, shortness of breath. Does report she feels she has had a little bit of a hard time emptying her bladder. [facility] Medical History Seizure disorder Hypotension Marijuana abuse Alcohol dependence ETOH abuse IBS (irritable bowel syndrome) Anxiety Depression Seizure Home Medications ???Medication ???Instructions ???Recorded ???Last Taken ???Type alendronate 70 mg tablet 70 mg PO QWEEK [facility] Health 4 Unknown History buspirone 7.5 mg tablet 7.5 mg PO DAILY Mood 10/18/2308/25 08:50 History sertraline 50 mg tablet 50 mg PO DAILY Mood 10/18/2309/04 08:50 History acetaminophen 500 mg tablet 1,000 mg (2 x 500 mg) PO Q8 #0 tab s 09/12/24 Unknown Rx gabapentin 100 mg capsule 100 mg PO QHS 30 days #30 caps Unknown Rx hydromorphone 2 mg tablet 2 - 4 mg (1 - 2 x 2 mg) PO Q4H PRN 09/12/24 Unknown Rx PRN PAIN 6-10 7 days #42 tabs hydroxyzine pamoate 25 mg capsule 50 mg (2 x 25 mg) PO TID PRN PRN 09/12/24 Unknown Rx Itching 30 days #90 caps lidocaine 5 % topical patch 2 patch topical DAILY 30 days #60 09/12/24 Unknown Rx ea methocarbamol 750 mg tablet 750 mg PO Q8 30 days #90 tabs 08/25 12/19 Unknown Rx ondansetron 4 mg disintegrating 4 mg PO Q8H PRN PRN Nausea 30 days 09/12/24 Unknown Rx tablet #90 tabs Allergy/AdvReac Type Severity Reaction Status Date / Time erythromycin base Allergy TONGUE Verified 11/07/24 11:22 PEELS Family History Sister Melanoma Father Prostate CA Surgical History History of placement of ureteral stent History of resection of small bowel History of right salpingo-oophorectomy History of lysis of adhesions History of exploratory laparotomy 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 Social History household members: none housing: apartment Smoking Status: Former smoker alcohol intake: former year quit: 2020 substance use type: marijuana ROS ROS Narrative General: Denies fever/chills HENT: Denies headache, denies stuffy nose, denies sore throat EYES: Denies changes in vision Resp: Denies cough, denies shortness of breath Cardiac: Denies chest pain GI: abd pain specifically in lower quadrants, diarrhea, n/v : Does feel she has had a little bit of a hard time emptying her bladder Extremity: Denies swelling MSK: Denies weakness Neuro: Denies any numbness/tingling Heme: Denies any bleeding or bruising Skin: Denies rashes Psychiatric: No complaints voiced Vital Signs Vital Signs Vital Signs: 11/07/24 11:18 11/07/24 14:20 Temperature 97.4 F L Temperature Source Temporal Pulse Rate 83 85 Respiratory Rate 20 H 16 Blood Pressure 125/59 H 114/60 Blood P (more content not included)... Normal [facility] Hematocrit Auto (Bld) [Volum e fraction]Ordered By: Lluvia Vann on 11-07-2024 Hematocrit (Bld) [Volume fraction] 30.3 % Low 37-47 [facility] Hemoglobin measurementOrdere d By: Lluvia Vann on 11-07-2024 Hemoglobin (Bld) [Mass/Vol] 10.5 g/dL Low 12.0-15.0 [facility] Immature granulocytes/100 WB C Auto (Bld)Ordered By: Lluvia Vann on 11-07-2024 Immature granulocytes/100 WBC (Bld) 0.600 % 0.0-0.9 [facility] Comment on above: IG% - Immature Granu locytes (promyelocytes, myelocytes and metamyelocytes) > 1% indicates that a LEFT SHIFT is Present. Ketones Test strip Ql (U)Ord ered By: Lluvia Vann on 11-07-2024 Ketones Ql (U) Negative Negative [facility] - Chemistry and C hemistry - challengeOrdered By: Lluvia Vann on 11-07-2024 AST [Catalytic activity/Vol] 23 U/L <32 [facility] Lactic Acidon 11-07-2024 Lactate [Moles/Vol] 1.8 mmol/L Normal 0.0-2.0 [facility] Comment on above: Performed By: #### L 500.2500, L100.0100 #### [facility] [address] [place], [place], [id number] Lactate [Moles/Vol] 2.2 mmol/L Invalid Interpretation Code 0.0-2.0 [facility] Comment on above: Order Comment: Y Result Comment: Crit ical Result(s) Called at 1330: TO [facility] by: KCLAPPER??Results read back by same. Performed By: #### L 499.0042 #### [facility] [address] [place], [place], [id number] Lactic acid measurementOrder ed By: Lluvia Vann on 11-07-2024 Lactate [Moles/Vol] 1.8 mmol/L 0.0-2.0 [facility] Lactate [Moles/Vol] 2.2 mmol/L High 0.0-2.0 [facility] Comment on above: Critical Result(s) C alled at 1330: TO [facility] by: KCLAPPER Results read back by same. Lipaseon 11-07-2024 Lipase [Catalytic activity/Vol] 29 U/L Normal 13-75 [facility] Comment on above: Result Comment: Plea se note: LIPASE revised reference range effective 22. New Lipase methodology. Expected to produce lower values than the previous assay method. NEW Reference Range: 13 - 75 U/L Performed By: #### L 499.0042 #### [facility] [address] [place], [place], [id number] Lipase measurementOrdered By : Lluvia Vann on 11-07-2024 Lipase [Catalytic activity/Vol] 29 U/L 13-75 [facility] Comment on above: Please note:LIPASE r evised reference range effective 22. New Lipase methodology. Expected to produce lower values than the previous assay method. NEW Reference Range: 13 - 75 U/L MCV (mean corpuscular volume ) determinationOrdered By: Lluvia Vann on 11-07-2024 MCV (RBC) [Entitic vol] 88.3 fL 81-99 [facility] MRI Abd WITH and W/O Contras ton 11-07-2024 MRI Abd WITH and W/O Contrast [facility] Imaging Services [address] [place] [address] MRI Abd WITH and W/O Contrast MR#: [id number] Acct: [id number] Name: LAKESHA KOCH Rep #: [id number] : 1960 F 64 From: Cosmo Montero MD PCP: Aubrey Lopez [facility] MECHANIC SENIOR-C Status: DIS IN Study: MRI Abd WITH and W/O Contrast Date of Exam: Exam# [id number] Ordering Dr: Annette Mendez MD ADDENDUM by Dr. Cosmo Montero MD on 11/12/24 at 0056 Clariscan amount of 8 ML Reading Location: [facility] 11/12/24 0056 Date cc: Dr. Annette Mendez MD; Aubrey [facility] MECHANIC SENIOR-C Beam * Signed PROCEDURE: MRI ABD WITH AND W/O CONTRAST 11/07/2024 REASON FOR EXAM: HEPATIC METS VS ABSCESSES TECHNIQUE: MRI ABD WITH AND W/O CONTRAST Multiplanar and multisequence images were obtained. CONTRAST: Clariscan VOLUME: A mL COMPARISON: 11/07/2024 and 08/2024 CT. FINDINGS: Liver: Multiple lesions of varying sizes up to 10 mm throughout the liver, demonstrating restricted diffusion, moderate T2 hyperintensity, T1 hypointensity, thin peripheral enhancement on early arterial phase with slow progressive enhancement on later phases, remaining hypointense relative to liver parenchyma. Gallbladder: Unremarkable. Biliary tree: No intrahepatic or extrahepatic biliary dilatation. Pancreas: Unremarkable. Spleen: Unremarkable. Adrenals: Unremarkable. Kidneys: Simple cyst in the upper pole of the left kidney. Bowel: Prior right hemicolectomy. Lymph nodes: No suspicious lymphadenopathy. Other: No ascites. MRI/MRI Abd WITH and W/O Contrast IMPRESSION: *Multiple small hepatic lesions with imaging features most consistent with hepatic metastases in the setting of known colorectal carcinoma. *Simple left renal upper pole cyst. *Status post right hemicolectomy. Reading Location: [facility] CC: Dr. Annette Mendez MD; [facility] S[facility]-C Beam Healthcare Translator: Signed Normal [facility] Magnetic resonance imaging r eportOrdered By: Cosmo Montero on 11-07-2024 Study report [facility] Imaging Services [address] [place] [address] MRI Abd WITH and W/O Contrast MR#: [id number] Acct: [id number] Name: LAKESHA KOCH Rep #: [id number] : 1960 F 64 From: Alex Montero MD PCP: Aubrey Lopez [facility] MECHANIC SENIOR-C Status: ADM IN Study:MRI Abd WITH and W/O Contrast Date of E xam: 11/07/24 Exam# [id number] Ordering Dr: Wendy Mendez MD PROCEDURE: MRI ABD WITH AND W/O CONTRAST 11/07/2024 REASON FOR EXAM: HEPATIC METS VS ABSCESSES TECHNIQUE: MRI ABD WITH AND W/O CONTRAST Multiplanar and multisequence images were obtained. CONTRAST: Clariscan VOLUME: A mL COMPARISON: 11/07/2024 and 08/2024 CT. FINDINGS: Liver: Multiple lesions of varying sizes up to 10 mm throughout the liver, demonstrating restricted diffusion, moderate T2 hyperintensity, T1 hypointensity, thin peripheral enhancement on early arterial phase with slow progressive enhancement on later phases, remaining hypointense relative to liver parenchyma. Gallbladder: Unremarkable. Biliary tree: No intrahepatic or extrahepatic biliary dilatation. Pancreas: Unremarkable. Spleen: Unremarkable. Adrenals: Unremarkable. Kidneys: Simple cyst in the upper pole of the left kidney. Bowel: Prior right hemicolectomy. Lymph nodes: No suspicious lymphadenopathy. Other: No ascites. MRI/MRI Abd WITH and W/O Contrast IMPRESSION: *Multiple small hepatic lesions with imaging features most consistent with hepatic metastases in the setting of known colorectal carcinoma. *Simple left renal upper pole cyst. *Status post right hemicolectomy. Reading Location: [facility] CC: Dr. Annette Mendez MD; [facility] MECHANIC SENIOR-C Beam ~ Healthcare Translator: Signed [facility] Mean corpuscular hemoglobin (MCH) determinationOrdered By: Lluvia Vann on 11-07-2024 MCH (RBC) [Entitic mass] 30.6 pg 27.0-32.0 [facility] Mean corpuscular hemoglobin concentration (MCHC) determinationOrdered By: Lluvia Vann on 11-07-2024 MCHC (RBC) [Mass/Vol] 34.7 g/dL 32-[address] [facility] Mean platelet volume determi nationOrdered By: Lluvia Vann on 11-07-2024 Platelet mean volume (Bld) [Entitic vol] 9.5 fL 6.2-12.0 [facility] Microscopic analysis of urin e for red blood cells (RBC)Ordered By: Lluvia Vann on 11-07-2024 Microscopic analysis of urine for red blood cells (RBC) 0 SEEN /hpf 0-5 [facility] Monocyte percentageOrdered B y: Lluvia Vann on 11-07-2024 Monocytes/100 WBC (Bld) 3.3 % 0-10 [facility] Mucus LM Ql (Urine sed)Order ed By: Lluvia Vann on 11-07-2024 Mucus Ql (Urine sed) 0 SEEN /hpf [facility] Neutrophil percentageOrdered By: Lluvia Vann on 11-07-2024 Neutrophils/100 WBC (Bld) 90.3 % High 47-70 [facility] Nitrite Test strip Ql (U)Ord ered By: Lluvia Vann on 11-07-2024 Nitrite Ql (U) Negative Negative [facility] Nucleated red blood cell per centageOrdered By: Lluvia Vann on 11-07-2024 Nucleated RBC/100 WBC (Bld) [Ratio] 0 % 0-5 [facility] Platelet countOrdered By: Nitesh Vann on 11-07-2024 Platelets (Bld) [#/Vol] 283 10*3/uL 150-450 [facility] Potassium measurement (mass/ volume)Ordered By: Lluvia Vann on 11-07-2024 Potassium (Unsp spec) [Mass/Vol] 3.0 mmol/L Low 3.3-5.1 [facility] Protein Test strip Ql (U)Ord ered By: Lluvia Vann on 11-07-2024 Protein Ql (U) Negative Negative [facility] RBC Auto (Bld) [#/Vol]Ordere d By: Lluvia Vann on 11-07-2024 RBC (Bld) [#/Vol] 3.43 10*6/uL Low 4.2-5.4 [facility] Serum creatinine measurement (mass/volume)Ordered By: Lluvia Vann on 11-07-2024 Creatinine [Mass/Vol] 0.58 mg/dL Low 0.70-1.[address] [facility] Serum globulin measurementOr dered By: Lluvia Vann on 11-07-2024 Globulin (S) [Mass/Vol] 2.7 g/dL 2.2-4.2 [facility] Serum glucose measurement (m ass/volume)Ordered By: Lluvia Vann on 11-07-2024 Glucose [Mass/Vol] 145 mg/dL High 70-99 [facility] Serum or plasma alanine ramirez otransferase (ALT) measurementOrdered By: Lluvia Vann on 11-07-2024 ALT [Catalytic activity/Vol] 10 U/L <35 [facility] Serum or plasma albumin renetta urement (mass/volume)Ordered By: Lluvia Vann on 11-07-2024 Albumin [Mass/Vol] 3.8 g/dL 3.4-4.8 [facility] Serum or plasma albumin/glob ulin mass ratioOrdered By: Lluvia Vann on 11-07-2024 Albumin/Globulin [Mass ratio] 1.4 {ratio} 0.9-2.4 [facility] Serum or plasma alkaline marquez sphatase measurementOrdered By: Lluvia Vann on 11-07-2024 ALP [Catalytic activity/Vol] 74 U/L 35-104 [facility] Serum or plasma calcium renetta urement (mass/volume)Ordered By: Lluvia Vann on 11-07-2024 Calcium [Mass/Vol] 8.7 mg/dL 7.6-11.0 [facility] Serum or plasma urea nitroge n measurement (mass/volume)Ordered By: Lluvia Vann on 11-07-2024 Urea nitrogen [Mass/Vol] 15 mg/dL 4-19 [facility] Sodium levelOrdered By: Siddhartha Vann on 11-07-2024 Sodium [Moles/Vol] 140 mmol/L 133-145 [facility] Squamous epithelial cells de tection in urine sediment by light microscopyOrdered By: Lluvia Vann on 11-07-2024 Epithelial cells.squamous LM Ql (Urine sed) 0 SEEN /hpf 5-10 [facility] Stool Clostridium difficile detectionOrdered By: Annette Mendez on 11-07-2024 C. difficile Ql (Stl) [facility] Total proteinOrdered By: Pau Vann on 11-07-2024 Protein [Mass/Vol] 6.5 g/dL 5.9-8.4 [facility] Urinalysis, Completeon 11-07 BACTERIA 0 SEEN Normal None Seen [facility] Comment on above: Order Comment: CLEAN CATCH Performed By: #### L 500.2500, L100.0100 #### [facility] [address] [place], [address] EPI,SQUAMOUS 0 SEEN Normal - [facility] Comment on above: Order Comment: CLEAN CATCH Performed By: #### L 500.2500, L100.0100 #### [facility] [address] [place], [address] Mucus Ql (Urine sed) 0 SEEN Normal [facility] Comment on above: Order Comment: CLEAN CATCH Performed By: #### L 500.2500, L100.0100 #### [facility] [address] [place], [address] RBC 0 SEEN Normal 0-5 [facility] Comment on above: Order Comment: CLEAN CATCH Performed By: #### L 500.2500, L100.0100 #### [facility] [address] [place], [address] WBC 0 SEEN Normal 0-5 [facility] Comment on above: Order Comment: CLEAN CATCH Performed By: #### L 500.2500, L100.0100 #### [facility] [address] [place], [address] Urine clarityOrdered By: Pau Vann on 11-07-2024 Clarity (U) Clear Clear [facility] Urine color determinationOrd ered By: Lluvia Vann on 11-07-2024 Color (U) Yellow Yellow [facility] Urine glucose detectionOrder ed By: Lluvia Vann on 11-07-2024 Glucose Ql (U) Normal mg/dl Normal [facility] Urine leukocyte esterase det ection by dipstickOrdered By: Lluvia Vann on 11-07-2024 Leukocyte esterase Test strip Ql (U) Negative Negative [facility] Urine pHOrdered By: Lluvia cabrales on 11-07-2024 pH (U) 6.5 [pH] 5.0 - 8.0 [facility] Urine sediment bacteria coun t by microscopy (number/high power field)Ordered By: Lluvia Vann on 11-07-2024 Bacteria LM.HPF (Urine sed) [#/Area] 0 /[HPF] None Seen [facility] Urine specific gravity measu rementOrdered By: Lluvia Vann on 11-07-2024 Specific gravity (U) [Rel density] 1.010 1.002-1.03 0 [facility] Urine urobilinogen measureme ntOrdered By: Lluvia Vann on 11-07-2024 Urobilinogen Ql (U) Normal mg/dl Normal [facility] White blood cell (WBC) count Ordered By: Lluvia Vann on 11-07-2024 WBC (Bld) [#/Vol] 19.9 10*3/uL High 4.4-11.0 [facility] White blood cell countOrdere d By: Lluvia Vann on 11-07-2024 White blood cell count 0 SEEN /hpf 0-5 [facility] CBC W Auto Differential pane l (Bld)on 11-05-2024 Basophils (Bld) [#/Vol] 0.09 10*3/uL [facility] Basophils/100 WBC (Bld) 1.2 % [facility] Differential cell count method Nom (Bld) Auto [facility] Eosinophils (Bld) [#/Vol] 0.70 10*3/uL High NINF [facility] Eosinophils/100 WBC (Bld) 9.4 % [facility] Erythrocyte distribution width (RBC) [Ratio] 13.2 % 11.5 - 15.0 % [facility] Hematocrit (Bld) [Volume fraction] 32.2 % Low 36.0 - 46.0 % [facility] Hemoglobin (Bld) [Mass/Vol] 10.7 g/dL Low 11.5 - 15.5 g/dL [facility] Immature granulocytes (Bld) [#/Vol] NINF [facility] Immature granulocytes/100 WBC (Bld) 0.3 % [facility] Interpretation and review of laboratory results Abnormal [facility] Lymphocytes (Bld) [#/Vol] 1.77 10*3/uL [facility] Lymphocytes/100 WBC (Bld) 23.7 % [facility] MCH (RBC) [Entitic mass] 29.7 pg 26.0 - 34.[address] [facility] MCHC (RBC) [Mass/Vol] 33.2 g/dL 30.5 - 36.0 g/dL [facility] MCV (RBC) [Entitic vol] 89.4 fL 80.0 - 100.[address] [facility] Monocytes (Bld) [#/Vol] 0.55 10*3/uL [facility] Monocytes/100 WBC (Bld) 7.4 % [facility] Neutrophils (Bld) [#/Vol] 4.34 10*3/uL [facility] Neutrophils/100 WBC (Bld) 58.0 % [facility] Nucleated RBC (Bld) [#/Vol] [facility] Nucleated RBC/100 WBC (Bld) [Ratio] 0.0 % /[address] [facility] Platelet mean volume (Bld) [Entitic vol] 9.1 fL 9.0 - 12.[address] [facility] Platelets (Bld) [#/Vol] 284 10*3/uL [facility] RBC (Bld) [#/Vol] 3.60 10*6/uL Low 3.90 - 5.20 m/uL [facility] WBC (Bld) [#/Vol] 7.47 10*3/uL [facility] Basophils (Bld) [#/Vol] 0.09 10*3/uL Normal <0.11 [facility] Comment on above: Order Comment: Speci men Type: BLOOD SPECIMENOrdering Facility: [facility] Address: [address] [place] [address] Performed By: #### 5 7021-8 ####[facility] MILLWNCLIA [id number] [place] [address] [place] Basophils/100 WBC (Bld) 1.2 % Normal [facility] Comment on above: Order Comment: Speci men Type: BLOOD SPECIMENOrdering Facility: [facility] Address: [address] [place] [address] Performed By: #### 5 7021-8 ####[facility]ITALKALIELIA [id number] [place] [address] [place] Differential cell count method Nom (Bld) Auto Normal [facility] Comment on above: Order Comment: Speci men Type: BLOOD SPECIMENOrdering Facility: [facility] Address: [address] [place] [address] Performed By: #### 5 7021-8 ####[facility] CENTERLIA [id number] [place] [address] [place] Eosinophils (Bld) [#/Vol] 0.70 10*3/uL High <0.46 [facility] Comment on above: Order Comment: Speci men Type: BLOOD SPECIMENOrdering Facility: [facility] Address: [address] [place] [address] Performed By: #### 5 7021-8 ####[facility] CENTERLIA [id number] [place] [address] [place] Eosinophils/100 WBC (Bld) 9.4 % Normal [facility] Comment on above: Order Comment: Speci men Type: BLOOD SPECIMENOrdering Facility: [facility] Address: [address] [place] [address] Performed By: #### 5 7021-8 ####[facility]ITALNCLIA [id number] [place] [address] [place] Erythrocyte distribution width (RBC) [Ratio] 13.2 % Normal 11.5-15.0 [facility] Comment on above: Order Comment: Speci men Type: BLOOD SPECIMENOrdering Facility: [facility] Address: [address] [place] [address] Performed By: #### 5 7021-8 ####[facility] [id number] [place] [address] [place] Hematocrit (Bld) [Volume fraction] 32.2 % Low 36.0-46.0 [facility] Comment on above: Order Comment: Speci men Type: BLOOD SPECIMENOrdering Facility: [facility] Address: [address] [place] [address] Performed By: #### 5 7021-8 ####[facility]ITALNCHUN[facility] [id number] [place] [address] [place] Hemoglobin (Bld) [Mass/Vol] 10.7 g/dL Low 11.5-15.5 [facility] Comment on above: Order Comment: Speci men Type: BLOOD SPECIMENOrdering Facility: [facility] Address: [address] [place] [address] Performed By: #### 5 7021-8 ####[facility] [id number] [place] [address] [place] Immature granulocytes (Bld) [#/Vol] 10*3/uL Normal <0.10 [facility] Comment on above: Order Comment: Speci men Type: BLOOD SPECIMENOrdering Facility: [facility] Address: [address] [place] [address] Performed By: #### 5 7021-8 ####[facility]ITALNCHUNTS[facility] [id number] [place] [address] [place] Immature granulocytes/100 WBC (Bld) 0.3 % Normal [facility] Comment on above: Order Comment: Speci men Type: BLOOD SPECIMENOrdering Facility: [facility] Address: [address] [place] [address] Performed By: #### 5 7021-8 ####[facility] BISHNURENOGUMEA [id number] [place] [address] [place] Lymphocytes (Bld) [#/Vol] 1.77 10*3/uL Normal 1.00-4.00 [facility] Comment on above: Order Comment: Speci men Type: BLOOD SPECIMENOrdering Facility: [facility] Address: [address] [place] [address] Performed By: #### 5 7021-8 ####[facility] [id number] [place] [address] [place] Lymphocytes/100 WBC (Bld) 23.7 % Normal [facility] Comment on above: Order Comment: Speci men Type: BLOOD SPECIMENOrdering Facility: [facility] Address: [address] [place] [address] Performed By: #### 5 7021-8 ####[facility]OS[facility]ITALNCCALDERONA [id number] [place] [address] [place] MCH (RBC) [Entitic mass] 29.7 pg Normal 26.0-34.0 [facility] Comment on above: Order Comment: Speci men Type: BLOOD SPECIMENOrdering Facility: [facility] Address: [address] [place] [address] Performed By: #### 5 7021-8 ####[facility]ITALNCLIA [id number] [place] [address] [place] MCHC (RBC) [Mass/Vol] 33.2 g/dL Normal 30.5-36.0 [facility] Comment on above: Order Comment: Speci men Type: BLOOD SPECIMENOrdering Facility: [facility] Address: [address] [place] [address] Performed By: #### 5 7021-8 ####[facility] BISHNUWNCLIA [id number] [place] [address] [place] MCV (RBC) [Entitic vol] 89.4 fL Normal 80.0-100.0 [facility] Comment on above: Order Comment: Speci men Type: BLOOD SPECIMENOrdering Facility: [facility] Address: [address] [place] [address] Performed By: #### 5 7021-8 ####[facility] CENTERA [id number] [place] [address] [place] Monocytes (Bld) [#/Vol] 0.55 10*3/uL Normal <0.87 [facility] Comment on above: Order Comment: Speci men Type: BLOOD SPECIMENOrdering Facility: [facility] Address: [address] [place] [address] Performed By: #### 5 7021-8 ####[facility] CENTERA [id number] [place] [address] [place] Monocytes/100 WBC (Bld) 7.4 % Normal [facility] Comment on above: Order Comment: Speci men Type: BLOOD SPECIMENOrdering Facility: [facility] Address: [address] [place] [address] Performed By: #### 5 7021-8 ####[facility] CENTERLIA [id number] [place] [address] [place] Neutrophils (Bld) [#/Vol] 4.34 10*3/uL Normal 1.45-7.50 [facility] Comment on above: Order Comment: Speci men Type: BLOOD SPECIMENOrdering Facility: [facility] Address: [address] [place] [address] Performed By: #### 5 7021-8 ####[facility] CENTERLIA [id number] [place] [address] [place] Neutrophils/100 WBC (Bld) 58.0 % Normal [facility] Comment on above: Order Comment: Speci men Type: BLOOD SPECIMENOrdering Facility: [facility] Address: [address] [place] [address] Performed By: #### 5 7021-8 ####[facility]ITALNCH[facility] [id number] [place] [address] [place] Nucleated RBC (Bld) [#/Vol] 10*3/uL Normal <0.01 [facility] Comment on above: Order Comment: Speci men Type: BLOOD SPECIMENOrdering Facility: [facility] Address: [address] [place] [address] Performed By: #### 5 7021-8 ####[facility] [id number] [place] [address] [place] Nucleated RBC/100 WBC (Bld) [Ratio] 0.0 /100 WBC Normal [facility] Comment on above: Order Comment: Speci men Type: BLOOD SPECIMENOrdering Facility: [facility] Address: [address] [place] [address] Performed By: #### 5 7021-8 ####[facility] [id number] [place] [address] [place] Platelet mean volume (Bld) [Entitic vol] 9.1 fL Normal 9.0-12.7 [facility] Comment on above: Order Comment: Speci men Type: BLOOD SPECIMENOrdering Facility: [facility] Address: [address] [place] [address] Performed By: #### 5 7021-8 ####[facility] [id number] [place] [address] [place] Platelets (Bld) [#/Vol] 284 10*3/uL Normal 150-400 [facility] Comment on above: Order Comment: Speci men Type: BLOOD SPECIMENOrdering Facility: [facility] Address: [address] [place] [address] Performed By: #### 5 7021-8 ####[facility] BISHNURENONCLIA [id number] [place] [address] [place] RBC (Bld) [#/Vol] 3.60 10*6/uL Low 3.90-5.20 [facility] Comment on above: Order Comment: Speci men Type: BLOOD SPECIMENOrdering Facility: [facility] Address: [address] [place] [address] Performed By: #### 5 7021-8 ####[facility]ITALNCLIA [id number] [place] [address] [place] WBC (Bld) [#/Vol] 7.47 10*3/uL Normal 3.70-11.00 [facility] Comment on above: Order Comment: Speci men Type: BLOOD SPECIMENOrdering Facility: [facility] Address: [address] [place] [address] Performed By: #### 5 7021-8 ####[facility] CENTERLIA [id number] [place] [address] [place] CEA SerPl-mCncon 11-05-2024 Carcinoembryonic Ag [Mass/Vol] 8.4 ng/mL High <=2.9 [facility] Comment on above: Order Comment: Speci men Type: BLOOD SPECIMENOrdering Facility: [facility] Address: [address] [place] [address] Result Comment: Carc inoembryonic antigen test is used as an aid in monitoring response to treatment or recurrence in patients with established colorectal, breast, lung, prostatic, pancreatic, and ovarian carcinomas. Clinical correlation is required.The Carcinoembryonic antigen test was performed using the [employer] Unicel DXI paramagnetic particle chemiluminescent immunoassay method. Results obtained with different assay methods or kits cannot be used interchangeably. Performed By: #### 2 039-6 ####[facility] LABCLIA [id number] [place] [id number] [place] CNOVSPon 11-05-2024 CNOVSP Normal [facility] metabolic 2000 panelOrdered By: Melryn Veloz on 11-05-2024 Albumin [Mass/Vol] 3.7 g/dL Low 3.9 - 4.9 g/dL [facility] ALP [Catalytic activity/Vol] 118 U/L 34 - 123 U/L [facility] ALT [Catalytic activity/Vol] 7 U/L 7 - 38 U/L [facility] Anion gap [Moles/Vol] 10 mmol/L 8 - 15 mmol/L [facility] AST [Catalytic activity/Vol] 16 U/L 13 - 35 U/L [facility] Bilirubin [Mass/Vol] mg/dL Low 0.2 - 1 .3 mg/dL [facility] Calcium [Mass/Vol] 9.2 mg/dL 8.5 - 10. 2 mg/dL [facility] Chloride [Moles/Vol] 105 mmol/L 98 - 10 7 mmol/L [facility] CO2 [Moles/Vol] 24 mmol/L 22 - 30 mmol/L [facility] Creatinine [Mass/Vol] 0.50 mg/dL Low 0.58 - 0.96 mg/dL [facility] GFR/1.73 sq M.predicted among non-blacks MDRD (S/P/Bld) [Vol rate/Area] 104 mL/min/{1.73_m2} - PINF [facility] Comment on above: Estimated Glomerular Filtration Rate (eGFR) is calculated using the 2020 CKD-EPI creatinine equation. This equation utilizes serum creatinine, sex, and age as parameters. The creatinine assay has traceable calibration to isotope dilution-mass spectrometry. Refer to KDIGO guidelines for clinical interpretation. In patients with unstable renal function, e.g. those with acute kidney injury, the eGFR may not accurately reflect actual GFR. Glucose [Mass/Vol] 82 mg/dL 74 - 99 mg/dL [facility] Comment on above: The [place] Diab[employer] s Association (ADA) provides guidance for cutoff values for fasting glucose and random glucose. The ADA defines fasting as no caloric intake for at least 8 hours. Fasting plasma glucose results between 100 to 125 mg/dL indicate increased risk for diabetes (prediabetes). Fasting plasma glucose results greater than or equal to 126 mg/dL meet the criteria for diagnosis of diabetes. In the absence of unequivocal hyperglycemia, results should be confirmed by repeat testing. In a patient with classic symptoms of hyperglycemia or hyperglycemic crisis, random plasma glucose results greater than or equal to 200 mg/dL meet the criteria for diagnosis of diabetes. Reference: Standards of Medical Care in Diabetes 2016, [place] [employer]. Diabetes Care. 2016.39(Suppl 1). Interpretation and review of laboratory results Abnormal [facility] Potassium [Moles/Vol] 3.6 mmol/L Low 3.7 - 5.1 mmol/L [facility] Protein [Mass/Vol] 6.2 g/dL Low 6.3 - 8.0 g/dL [facility] Sodium [Moles/Vol] 139 mmol/L 136 - 144 mmol/L [facility] Urea nitrogen [Mass/Vol] 17 mg/dL 7 - 21 mg/dL [facility] Comprehensive metabolic 2000 panelon 11-05-2024 Albumin [Mass/Vol] 3.7 g/dL Low 3.9-4.9 [facility] Comment on above: Order Comment: Umesh baugh Type: BLOOD SPECIMENOrdering Facility: [facility] Address: [address] [place] [id number] Performed By: #### 1 9123-9, 19646-3 ####[facility] CENTERLetha [id number] [place] [address] [place] ALP [Catalytic activity/Vol] 118 U/L Normal 34-123 [facility] Comment on above: Order Comment: Abdouli lupis Type: BLOOD SPECIMENOrdering Facility: [facility] Address: [address] [place] [address] Performed By: #### 1 9123-9, 33199-2 ####[facility] CENTERKELSIE [id number] [place] [address] [place] ALT [Catalytic activity/Vol] 7 U/L Normal 7-38 [facility] Comment on above: Order Comment: Abdouli men Type: BLOOD SPECIMENOrdering Facility: [facility] Address: [address] [place] [address] Performed By: #### 1 9123-9, 75316-2 ####[facility] MILLTOWNCLIA [id number] [place] [address] [place] Anion gap [Moles/Vol] 10 mmol/L Normal 8-15 [facility] Comment on above: Order Comment: Speci men Type: BLOOD SPECIMENOrdering Facility: [facility] Address: [address] [place] [address] Performed By: #### 1 9123-9, 51821-7 ####[facility] MILLTOWNCLIA [id number] [place] [address] [place] AST [Catalytic activity/Vol] 16 U/L Normal 13-35 [facility] Comment on above: Order Comment: Speci men Type: BLOOD SPECIMENOrdering Facility: [facility] Address: [address] [place] [address] Performed By: #### 1 9123-9, 40101-2 ####[facility] MILLTOWNCLIA [id number] [place] [address] [place] Bilirubin [Mass/Vol] mg/dL Low 0.2-1.3 [facility] Comment on above: Order Comment: Speci men Type: BLOOD SPECIMENOrdering Facility: [facility] Address: [address] [place] [address] Performed By: #### 1 9123-9, 72594-1 ####[facility] MILLTOWNCLIA [id number] [place] [address] [place] Calcium [Mass/Vol] 9.2 mg/dL Normal 8.5-10.2 [facility] Comment on above: Order Comment: Speci men Type: BLOOD SPECIMENOrdering Facility: [facility] Address: [address] [place] [address] Performed By: #### 1 9123-9, 80279-9 ####[facility] [id number] [place] [address] [place] Chloride [Moles/Vol] 105 mmol/L Normal 98-107 [facility] Comment on above: Order Comment: Speci men Type: BLOOD SPECIMENOrdering Facility: [facility] Address: [address] [place] [address] Performed By: #### 1 9123-9, 75816-5 ####[facility] [id number] [place] [address] [place] CO2 [Moles/Vol] 24 mmol/L Normal 22-30 [facility] Comment on above: Order Comment: Speci men Type: BLOOD SPECIMENOrdering Facility: [facility] Address: [address] [place] [address] Performed By: #### 1 9123-9, 66703-1 ####[facility] [id number] [place] [address] [place] Creatinine [Mass/Vol] 0.50 mg/dL Low 0.58-0.96 [facility] Comment on above: Order Comment: Speci men Type: BLOOD SPECIMENOrdering Facility: [facility] Address: [address] [place] [address] Performed By: #### 1 9123-9, 88969-6 ####[facility] CENTERLIA [id number] [place] [address] [place] eGFRcr SerPlBld CKD-EPI 2020 104 mL/min/1.73m??? Normal >=60 [facility] Comment on above: Order Comment: Speci men Type: BLOOD SPECIMENOrdering Facility: [facility] Address: [address] [place] [address] Result Comment: Sana mated Glomerular Filtration Rate (eGFR) is calculated using the 2020 CKD-EPI creatinine equation. This equation utilizes serum creatinine, sex, and age as parameters. The creatinine assay has traceable calibration to isotope dilution-mass spectrometry. Refer to KDIGO guidelines for clinical interpretation. In patients with unstable renal function, e.g. those with acute kidney injury, the eGFR may not accurately reflect actual GFR. Performed By: #### 1 9123-9, ####[facility] BISHNUTOWNCLIA [id number] [place] [address] [place] Glucose [Mass/Vol] 82 mg/dL Normal 74-99 [facility] Comment on above: Order Comment: Umesh baugh Type: BLOOD SPECIMENOrdering Facility: [facility] Address: [address] [place] [address] Result Comment: The [place] Diabetes Association (ADA) provides guidance for cutoff values for fasting glucose and random glucose. The ADA defines fasting as no caloric intake for at least 8 hours. Fasting plasma glucose results between 100 to 125 mg/dL indicate increased risk for diabetes (prediabetes).Fasting plasma glucose results greater than or equal to 126 mg/dL meet the criteria for diagnosis of diabetes. In the absence of unequivocal hyperglycemia, results should be confirmed by repeat testing. In a patient with classic symptoms of hyperglycemia or hyperglycemic crisis, random plasma glucose results greater than or equal to 200 mg/dL meet the criteria for diagnosis of diabetes.Reference: Standards of Medical Care in Diabetes 2016, [place] [employer]. Diabetes Care. 2016.39(Suppl 1). Performed By: #### 1 9123-9, ####[facility] BISHNUWNCLIA [id number] [place] [address] [place] Potassium [Moles/Vol] 3.6 mmol/L Low 3.7-5.1 [facility] Comment on above: Order Comment: Umesh baugh Type: BLOOD SPECIMENOrdering Facility: [facility] Address: [address] [place] [address] Performed By: #### 1 9123-9, ####[facility] BISHNUWNCLIA [id number] [place] [address] [place] Protein [Mass/Vol] 6.2 g/dL Low 6.3-8.0 [facility] Comment on above: Order Comment: Speci men Type: BLOOD SPECIMENOrdering Facility: [facility] Address: [address] [place] [address] Performed By: #### 1 9123-9, 56518-7 ####[facility] MILLWNCLIA [id number] [place] [address] [place] Sodium [Moles/Vol] 139 mmol/L Normal 136-144 [facility] Comment on above: Order Comment: Speci men Type: BLOOD SPECIMENOrdering Facility: [facility] Address: [address] [place] [address] Performed By: #### 1 9123-9, ####[facility] CENTERLILetha [id number] [place] [address] [place] Urea nitrogen [Mass/Vol] 17 mg/dL Normal 7-21 [facility] Comment on above: Order Comment: Speci men Type: BLOOD SPECIMENOrdering Facility: [facility] Address: [address] [place] [address] Performed By: #### 1 9123-9, ####[facility] MILLSELECT [facility] INDIANAPOLISLIA [id number] [place] [address] [place] MAGNESIUMon 11-05-2024 Magnesium [Mass/Vol] 1.9 mg/dL 1.7 - 2 .3 mg/dL [facility] Magnesium SerPl-mCncon 11-05 Magnesium [Mass/Vol] 1.9 mg/dL Normal 1.7-2.3 [facility] Comment on above: Order Comment: Speci men Type: BLOOD SPECIMENOrdering Facility: [facility] Address: [address] [place] [address] Performed By: #### 1 9123-9, 87623-8 ####[facility] MILLRENONCLIA [id number] [address] [place] Magnesium [Mass/Vol]on 11-05 Interpretation and review of laboratory results Normal [facility] CNPNon 10-25-2024 CNPN Normal [facility] CNPNon 10-24-2024 CNPN Normal [facility] Absolute lymphocyte countOrd ered By: Ankit Marsh on 10-23-2024 Lymphocytes Auto (Unsp spec) [#/Vol] 1.13 10*3/uL 0.83-4.51 [facility] Absolute neutrophil countOrd ered By: Ankit Marsh on 10-23-2024 Neutrophils (Bld) [#/Vol] 4.7 10*3/uL 2.0-7.7 [facility] Anion gap in Serum or Plasma Ordered By: Ankit Marsh on 10-23-2024 Anion gap [Moles/Vol] 14 mmol/L 5-[address] [facility] Automated lymphocyte count a s percentage of total leukocytesOrdered By: Ankit Marsh on 10-23-2024 Lymphocytes/100 WBC Auto (Unsp spec) 17.9 % Low 19-41 [facility] BUN/creatinine ratioOrdered By: Ankit Marsh on 10-23-2024 Urea nitrogen/Creatinine [Mass ratio] 29.3 mg/mg High 10-20 [facility] Basophil percentageOrdered B y: Ankit Marsh on 10-23-2024 Basophils/100 WBC (Bld) 0.8 % 0-1 [facility] Bilirubin, totalOrdered By: Ankit Marsh on 10-23-2024 Bilirubin [Mass/Vol] 0.25 mg/dL 0.00-1.30 [facility] CBC W/Diff, Automatedon 09-26 Absolute Lymph 1.13 X10 3/uL Normal 0.83-4.51 [facility] Comment on above: Performed By: #### L 9100.0200 #### [facility] [address] [place], [address] Absolute Neut 4.7 X10 3/uL Normal 2.0-7.7 [facility] Comment on above: Performed By: #### L 9100.0200 #### [facility] [address] [place], [address] Basophils/100 WBC (Bld) 0.8 % Normal 0-1 [facility] Comment on above: Performed By: #### L 9100.0200 #### [facility] [address] [place], [address] Eosinophils/100 WBC (Bld) 2.2 % Normal 0-5 [facility] Comment on above: Performed By: #### L 9100.0200 #### [facility] [address] [place], [address] Erythrocyte distribution width (RBC) [Ratio] 13.6 % Normal 11.6-14.6 [facility] Comment on above: Performed By: #### L 9100.0200 #### [facility] [address] [place], [address] Hematocrit (Bld) [Volume fraction] 40.5 % Normal 37-47 [facility] Comment on above: Performed By: #### L 9100.0200 #### [facility] [address] [place], [address] Hemoglobin (Bld) [Mass/Vol] 13.2 g/dL Normal 12.0-15.0 [facility] Comment on above: Performed By: #### L 9100.0200 #### [facility] [address] [place], [address] IG% 0.300 Normal 0.0-0.9 [facility] Comment on above: Result Comment: IG% - Immature Granulocytes (promyelocytes, myelocytes and metamyelocytes) > 1% indicates that a LEFT SHIFT is Present. Performed By: #### L 9100.0200 #### [facility] [address] [place], [address] Lymphocytes/100 WBC (Bld) 17.9 % Low 19-41 [facility] Comment on above: Performed By: #### L 9099.0200 #### [facility] [address] [place], [address] MCH (RBC) [Entitic mass] 29.7 pg Normal 27.0-32.0 [facility] Comment on above: Performed By: #### L 9099.0200 #### [facility] [address] [place], [address] MCHC (RBC) [Mass/Vol] 32.6 g/dL Normal 32-[address] [facility] Comment on above: Performed By: #### L 9099.0200 #### [facility] [address] [place], [address] MCV (RBC) [Entitic vol] 91.2 fL Normal 81-99 [facility] Comment on above: Performed By: #### L 9099.0200 #### [facility] [address] [place], [address] Monocytes/100 WBC (Bld) 4.8 % Normal 0-10 [facility] Comment on above: Performed By: #### L 9099.0200 #### [facility] [address] [place], [address] Neutrophils/100 WBC (Bld) 74.0 % High 47-70 [facility] Comment on above: Performed By: #### L 9099.0200 #### [facility] [address] [place], [address] Nucleated RBC (Bld) [#/Vol] 0 10*3/uL Normal 0-5 [facility] Comment on above: Performed By: #### L 9099.0200 #### [facility] [address] [place], [address] Platelet mean volume (Bld) [Entitic vol] 9.4 fL Normal 6.2-12.0 [facility] Comment on above: Performed By: #### L 9100.0200 #### [facility] [address] [place], [address] Platelets (Bld) [#/Vol] 293 10*3/uL Normal 150-450 [facility] Comment on above: Performed By: #### L 91.0200 #### [facility] [address] [place], [address] RBC (Bld) [#/Vol] 4.44 10*6/uL Normal 4.2-5.4 [facility] Comment on above: Performed By: #### L 9100.0200 #### [facility] [address] [place], [address] RDW SD 45.9 fl High 35.1-43.9 [facility] Comment on above: Performed By: #### L 9099.0200 #### [facility] [address] [place], [address] WBC (Bld) [#/Vol] 6.3 10*3/uL Normal 4.4-11.0 [facility] Comment on above: Performed By: #### L 91.0200 #### [facility] [address] [place], [address] Carbon dioxide, total [Moles /volume] in Central venous bloodOrdered By: Ankit Marsh on 10-23-2024 CO2 [Moles/Vol] 16.5 mmol/L Low 21.0-32.0 [facility] Chloride assayOrdered By: Raymond Marsh on 10-23-2024 Chloride [Moles/Vol] 108 mmol/L 98-108 [facility] Comprehensive Metabolic Prof ilon 10-23-2024 Albumin [Mass/Vol] 4.1 g/dL Normal 3.4-4.8 [facility] Comment on above: Performed By: #### L 9099.0200 #### [facility] [address] [place], [address] Albumin/Globulin [Mass ratio] 1.2 {ratio} Normal 0.9-2.4 [facility] Comment on above: Performed By: #### L 9100.0200 #### [facility] [address] [place], [address] ALK PHOS 100 U/L Normal 35-104 [facility] Comment on above: Performed By: #### L 91.0200 #### [facility] [address] [place], [address] ALT [Catalytic activity/Vol] 8 U/L Normal <=34 [facility] Comment on above: Performed By: #### L 91.0200 #### [facility] [address] [place], [address] AST [Catalytic activity/Vol] 23 U/L Normal <=31 [facility] Comment on above: Result Comment: Hemo lysis present, Results??could be affected. ?? Performed By: #### L 91.0200 #### [facility] [address] [place], [address] Bilirubin [Mass/Vol] 0.25 mg/dL Normal 0.00-1.30 [facility] Comment on above: Performed By: #### L 91.0200 #### [facility] [address] [place], [address] BUN/CRE 29.3 RATIO High 10-20 [facility] Comment on above: Performed By: #### L 9100.0200 #### [facility] [address] [place], [address] Calcium [Mass/Vol] 9.4 mg/dL Normal 7.6-11.0 [facility] Comment on above: Performed By: #### L 91.0200 #### [facility] [address] [place], [address] Chloride [Moles/Vol] 108 mmol/L Normal 98-108 [facility] Comment on above: Performed By: #### L 9100.0200 #### [facility] [address] [place], [address] CO2 [Moles/Vol] 16.5 mmol/L Low 21.0-32.0 [facility] Comment on above: Performed By: #### L 9099.0200 #### [facility] [address] [place], [address] Creatinine [Mass/Vol] 0.65 mg/dL Low 0.70-1.[address] [facility] Comment on above: Performed By: #### L 9099.0200 #### [facility] [address] [place], [address] GAP 14 Normal 5-15 [facility] Comment on above: Performed By: #### L 9099.0200 #### [facility] [address] [place], [address] GFR/1.73 sq M.predicted among non-blacks MDRD (S/P/Bld) [Vol rate/Area] 98 mL/min/{1.73_m2} Normal >60 [facility] Comment on above: Result Comment: mL/m in/1.73m2 CKD-EPI Creatinine Equation (2020) Performed By: #### L 9100.0200 #### [facility] [address] [place], [address] Globulin (S) [Mass/Vol] 3.6 g/dL Normal 2.2-4.2 [facility] Comment on above: Performed By: #### L 91.0200 #### [facility] [address] [place], [address] Glucose [Mass/Vol] 139 mg/dL High 70-99 [facility] Comment on above: Performed By: #### L 00.0200 #### [facility] [address] [place], [address] Potassium [Moles/Vol] 3.7 mmol/L Normal 3.3-5.[address] [facility] Comment on above: Result Comment: Hemo lysis present, Results??could be affected. ?? Performed By: #### L 9100.0200 #### [facility] [address] [place], [address] Sodium [Moles/Vol] 138 mmol/L Normal 133-145 [facility] Comment on above: Performed By: #### L 9100.0200 #### [facility] [address], [address] T PROT 7.7 g/dL Normal 5.9-8.4 [facility] Comment on above: Performed By: #### L 9100.0200 #### [facility] [address] [place], [address] Urea nitrogen [Mass/Vol] 19 mg/dL Normal 4-19 [facility] Comment on above: Performed By: #### L 9100.0200 #### [facility] [address] [place], [address] Emergency Department Summary on 10-23-2024 Emergency Department Summary [facility] Medical Records Department [address] [place] [address] Emergency Department Summary 10/23/24 MR#: [id number] Acct: [id number] Name: LAKESHA KOCH ILENE Rep #: [id number] : 1960 64 From: Ankit Marsh MD PCP: Aubrey Lopez [facility] Status:REG ER Location: ED HPI History of Present Illness Chief Complaint: Nausea/Vomiting/Diarrhea Narrative Narrative: 64-year-old female past medical history of recurrent colon carcinoma, supposed to start chemotherapy soon, recently had Mediport inserted last week and had tooth extraction yesterday, presents with nausea and vomiting since this morning. Around 530, 4 hours ago, she started having multiple episodes of vomiting without hematemesis. She vomited [address] to the emergency department. She feels she is dehydrated. She states that previously she was on oral chemotherapy, and is supposed to start infusions of chemotherapy for her recurrent carcinoma. She knows what dehydration feels like, and states that she cannot tolerate even sips of water. [facility] Medical History Seizure disorder Hypotension Marijuana abuse Alcohol dependence ETOH abuse IBS (irritable bowel syndrome) Anxiety Depression Seizure Home Medications ???Medication ???Instructions ???Recorded ???Last Taken ???Type alendronate 70 mg tablet 70 mg PO QWEEK [facility] 4 Unknown History buspirone 7.5 mg tablet 7.5 mg PO DAILY Mood 10/18/2308/25 08:50 History sertraline 50 mg tablet 50 mg PO DAILY Mood 10/18/2309/04 08:50 History acetaminophen 500 mg tablet 1,000 mg (2 x 500 mg) PO Q8 #0 tab s 09/12/24 Unknown Rx gabapentin 100 mg capsule 100 mg PO QHS 30 days #30 caps Unknown Rx hydromorphone 2 mg tablet 2 - 4 mg (1 - 2 x 2 mg) PO Q4H PRN 09/12/24 Unknown Rx PRN PAIN 6-10 7 days #42 tabs hydroxyzine pamoate 25 mg capsule 50 mg (2 x 25 mg) PO TID PRN PRN 09/12/24 Unknown Rx Itching 30 days #90 caps lidocaine 5 % topical patch 2 patch topical DAILY 30 days #60 09/12/24 Unknown Rx ea methocarbamol 750 mg tablet 750 mg PO Q8 30 days #90 tabs 08/25 12/19 Unknown Rx ondansetron 4 mg disintegrating 4 mg PO Q8H PRN PRN Nausea 30 days 09/12/24 Unknown Rx tablet #90 tabs Allergy/AdvReac Type Severity Reaction Status Date / Time erythromycin base Allergy TONGUE Verified 04/08/24 14:38 HALIMA Family History Sister Melanoma Father Prostate CA Surgical History History of placement of ureteral stent History of resection of small bowel History of right salpingo-oophorectomy History of lysis of adhesions History of exploratory laparotomy 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 No fevers or chills, no exacerbating or alleviating factors. She did have bowel movements this morning. EXAM Physical Exam Narrative Exam Narrative: Afebrile. Vital signs noted. Nontoxic-appearing. Cardiovascular examination reveals mild tachycardia. Lungs clear to auscultation bilaterally. Abdomen is soft and nontender without guarding or rebound. Positive bowel sounds. No distention. Neurological examination nonfocal, nonlateralizing. Const Vital Signs: 10/23/24 09:17 Temperature 97.4 F L Temperature Source Temporal Pulse Rate 110 H Respiratory Rate 16 Blood Pressure 130/82 H Blood Pressure Mean 98 Pulse Ox 98 Oxygen Delivery Method Room Air MDM MDM MDM Narrative Medical decision making narrative: The differential diagnosis includes but not limited to gastroenteritis versus gastritis versus bowel obstruction versus pancreatitis. Patient states she is really not having that much abdominal pain. I discussed with her possible CT imaging, but she is declining. She was told that it limits my ability to rule out any obstruction, but she states that the abdominal pain is not her main concern and that she feels more dehydrated. She will be bolused IV fluids. However, we will not use her Mediport because she states that she has not been cleared for its use yet. I will check a CBC, CMP, and lipase to help rule out pancreatitis and look for any electrolyte abnormality or dehydration. Patient bolused normal saline 1 L intravenously. I reviewed her laboratory work and she has normal white count of 6.3 with hemoglobin 13.2, hematocrit 40.5, (more content not included)... Normal [facility] Eosinophil percentageOrdered By: Ankit Marsh on 10-23-2024 Eosinophils/100 WBC (Bld) 2.2 % 0-5 [facility] Erythrocyte distribution wid th ratioOrdered By: Ankit Marsh on 10-23-2024 Erythrocyte distribution width (RBC) [Ratio] 13.6 % 11.6-14.6 [facility] Erythrocyte distribution wid th standard deviationOrdered By: Ankit Marsh on 10-23-2024 Erythrocyte distribution width (RBC) [Ratio] 45.9 fl High 35.1-43.9 [facility] Glomerular filtration rate ( GFR) estimation/1.73 sq m using serum, plasma, or whole bOrdered By: Ankit Marsh on 10-23-2024 GFR/1.73 sq M.predicted among non-blacks MDRD (S/P/Bld) [Vol rate/Area] 98 mL/min/{1.73_m2} >60 [facility] Comment on above: mL/min/1.73m2 CKD-EP I Creatinine Equation (2020) Hematocrit Auto (Bld) [Volum e fraction]Ordered By: Ankit Marsh on 10-23-2024 Hematocrit (Bld) [Volume fraction] 40.5 % 37-47 [facility] Hemoglobin measurementOrdere d By: Ankit Marsh on 10-23-2024 Hemoglobin (Bld) [Mass/Vol] 13.2 g/dL 12.0-15.0 [facility] Immature granulocytes/100 WB C Auto (Bld)Ordered By: Ankit Marsh on 10-23-2024 Immature granulocytes/100 WBC (Bld) 0.300 % 0.0-0.9 [facility] Comment on above: IG% - Immature Granu locytes (promyelocytes, myelocytes and metamyelocytes) > 1% indicates that a LEFT SHIFT is Present. Laboratory - Chemistry and C hemistry - challengeOrdered By: Ankit Marsh on 10-23-2024 AST [Catalytic activity/Vol] 23 U/L <32 [facility] Comment on above: Hemolysis present, R esults could be affected. Lipaseon 10-23-2024 Lipase [Catalytic activity/Vol] 27 U/L Normal 13-75 [facility] Comment on above: Result Comment: Efrem caldwell note: LIPASE revised reference range effective 22. New Lipase methodology. Expected to produce lower values than the previous assay method. NEW Reference Range: 13 - 75 U/L Performed By: #### L 9100.0200 #### [facility] [place], [address] Lipase measurementOrdered By : Ankit Marsh on 10-23-2024 Lipase [Catalytic activity/Vol] 27 U/L 13-75 [facility] Comment on above: Please note:LIPASE r evised reference range effective 22. New Lipase methodology. Expected to produce lower values than the previous assay method. NEW Reference Range: 13 - 75 U/L MCV (mean corpuscular volume ) determinationOrdered By: Ankit Marsh on 10-23-2024 MCV (RBC) [Entitic vol] 91.2 fL 81-99 [facility] Mean corpuscular hemoglobin (MCH) determinationOrdered By: Ankit Marsh on 10-23-2024 MCH (RBC) [Entitic mass] 29.7 pg 27.0-32.0 [facility] Mean corpuscular hemoglobin concentration (MCHC) determinationOrdered By: Ankit Marsh on 10-23-2024 MCHC (RBC) [Mass/Vol] 32.6 g/dL 32-[address] [facility] Mean platelet volume determi nationOrdered By: Ankit Marsh on 10-23-2024 Platelet mean volume (Bld) [Entitic vol] 9.4 fL 6.2-12.0 [facility] Monocyte percentageOrdered B y: Ankit Marsh on 10-23-2024 Monocytes/100 WBC (Bld) 4.8 % 0-10 [facility] Neutrophil percentageOrdered By: Ankit Marsh on 10-23-2024 Neutrophils/100 WBC (Bld) 74.0 % High 47-70 [facility] Nucleated red blood cell per centageOrdered By: Ankit Marsh on 10-23-2024 Nucleated RBC/100 WBC (Bld) [Ratio] 0 % 0-5 [facility] Platelet countOrdered By: Raymond Marsh on 10-23-2024 Platelets (Bld) [#/Vol] 293 10*3/uL 150-450 [facility] Potassium measurement (mass/ volume)Ordered By: Ankit Marsh on 10-23-2024 Potassium (Unsp spec) [Mass/Vol] 3.7 mmol/L 3.3-5.1 [facility] Comment on above: Hemolysis present, R esults could be affected. RBC Auto (Bld) [#/Vol]Ordere d By: Ankit Marsh on 10-23-2024 RBC (Bld) [#/Vol] 4.44 10*6/uL 4.2-5.4 [facility] Serum creatinine measurement (mass/volume)Ordered By: Ankit Marsh on 10-23-2024 Creatinine [Mass/Vol] 0.65 mg/dL Low 0.70-1.[address] [facility] Serum globulin measurementOr dered By: Ankit Marsh on 10-23-2024 Globulin (S) [Mass/Vol] 3.6 g/dL 2.2-4.2 [facility] Serum glucose measurement (m ass/volume)Ordered By: Ankit Marsh on 10-23-2024 Glucose [Mass/Vol] 139 mg/dL High 70-99 [facility] Serum or plasma alanine ramirez otransferase (ALT) measurementOrdered By: Ankit Marsh on 10-23-2024 ALT [Catalytic activity/Vol] 8 U/L <35 [facility] Serum or plasma albumin renetta urement (mass/volume)Ordered By: Ankit Marsh on 10-23-2024 Albumin [Mass/Vol] 4.1 g/dL 3.4-4.8 [facility] Serum or plasma albumin/glob ulin mass ratioOrdered By: Ankit Marsh on 10-23-2024 Albumin/Globulin [Mass ratio] 1.2 {ratio} 0.9-2.4 [facility] Serum or plasma alkaline marquez sphatase measurementOrdered By: Ankit Marsh on 10-23-2024 ALP [Catalytic activity/Vol] 100 U/L 35-104 [facility] Serum or plasma calcium renetta urement (mass/volume)Ordered By: Ankit Marsh on 10-23-2024 Calcium [Mass/Vol] 9.4 mg/dL 7.6-11.0 [facility] Serum or plasma urea nitroge n measurement (mass/volume)Ordered By: Ankit Marsh on 10-23-2024 Urea nitrogen [Mass/Vol] 19 mg/dL 4-19 [facility] Sodium levelOrdered By: Ankit Marsh on 10-23-2024 Sodium [Moles/Vol] 138 mmol/L 133-145 [facility] Total proteinOrdered By: Clinton Marsh on 10-23-2024 Protein [Mass/Vol] 7.7 g/dL 5.9-8.4 [facility] White blood cell (WBC) count Ordered By: Ankit Marsh on 10-23-2024 WBC (Bld) [#/Vol] 6.3 10*3/uL 4.4-11.0 [facility] BRIEF OP NOTon 10-21-2024 BRIEF OP NOT HNO ID: [id number] Author: ROMELIA GARY MD Service: Interventional Radiology Author Type: Physician Type: Brief Op Note Filed: 10/21/2024 12:28 Note Text: RADIOLOGY BRIEF PROCEDURE NOTE Procedure Date: October 21, 2024 Incision/Procedure Start Time: 1158 Incision Close/Procedure End Time: 1223 UNIVERSAL PROTOCOL / SAFETY CHECKLIST Procedure to be Performed: right IJ ported venous catheter placement Sign in Communication: Completed Time Out: Team Confirms the Correct Patient, Correct Procedure, Correct Site and Site Marking, Correct Position (if applicable). Time: 1158 Affirmation of Time Out: YES Sign Out Discussion: Completed Informed Consent obtained under separate note. ATTENDING RADIOLOGIST: Interventional: Dr. Romelia Gary ROLL TENDER: None PRE-PROCEDURAL DIAGNOSIS: cecal cancer PROCEDURE: Other (specify) - right IJ ported venous catheter placement MEDICAL HISTORY/PHYSICAL EXAM: Radiology personnel have verified that HANDP dated 10/21/24 exists in patient record. SUMMARY: Following full and informed consent the patient was brought to procedure suite. Subsequently, right IJ ported venous catheter placement and catheter is ready for use. POST-PROCEDURAL DIAGNOSIS: cecal cancer ESTIMATED BLOOD LOSS: 1 mls SPECIMENS: None COMPLICATIONS: None DISPOSITION: Patient hemodynamically stable, alert and awake. Patient transferred to Radiology Recovery/PACU for monitoring prior to anticipated d/c home. FULL DICTATION REPORT TO FOLLOW. SIGNATURE: Romelia Gary MD PATIENT NAME: Lakesha Koch DATE: October 21, 2024 TIME: 12:25 PM [facility] HISTORY PHYSICALon HISTORY PHYSICAL HNO ID: [id number] Author: ROMELIA GARY MD Service: Interventional Radiology Author Type: Physician Type: H&P Filed: 10/21/2024 10:29 Note Text: PROCEDURAL SEDATION HISTORY AND PHYSICAL EXAM SERVICE DATE: 10/21/2024 SERVICE TIME: 10:28 AM Subjective HPI: This is a 64 year old female who presents with cecal cancer and here for ported venous catheter placement for chemotherapy. PAST ANESTHESIA HISTORY: No history of adverse event PAST MEDICAL HISTORY Diagnosis Date Anemia Anorexia nervosa (HCC) Bowel wall thickening Daily consumption of alcohol Depression Essential tremor Failure to thrive in adult Feeding difficulties Focal epilepsy (HCC) Gait abnormality Inflammation of colonic mucosa Intestinal obstruction (HCC) Migraine Migraine without aura 05/03/2019 Muscular deconditioning Perforated 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 with localized peritonitis, gangrene and abscess Psoas abscess, right (HCC) Seizures (HCC) Severe protein-calorie malnutrition (HCC) PAST SURGICAL HISTORY Procedure Laterality Date APPENDECTOMY 01/03/2024 COLONOSCOPY DIAGNOSTIC polyp EXPLORATORY OF ABDOMEN 09/19/2023 ROCIO DRAIN TO BULB SUCTION 09/01/2023 for acute 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 with perforation, localized peritonitis, and gangrene. Prior to Admission medications as of 10/21/24 1025 Medication Sig Last Dose Taking OLANZapine (ZYPREXA) 10 mg tablet Take 1 tablet by mouth daily at bedtime. 10/20/2024 at 9:00 PM Yes busPIRone (BUSPAR) 7.5 mg tablet Take 7.5 mg by mouth once daily. 10/20/2024 Yes lidocaine-prilocaine (EMLA) 2.5-2.5 % cream Apply to port 60 minutes before accessing prochlorperazine (COMPAZINE) 10 mg tablet Take 1 tablet by mouth every 6 hours as needed for nausea/vomiting. gabapentin (NEURONTIN) 300 mg capsule Take 1 capsule by mouth daily at bedtime for 14 days. naloxone 4 mg/actuation nasal spray (NARCAN) Use 1 spray in one nostril as needed for overdose. May repeat every 2 to 3 min in alternating nostrils until medical assistance is available ursodiol (ACTIGALL) 300 mg capsule Take 1 capsule by mouth two times a day. lidocaine (SALONPAS) 4 % patch Apply 2 patches to affected area as directed once daily. Keep patches on for 12 hour and remove patches after 12 hours. polyethylene glycol 3350 (MIRALAX) 17 gram packet Take 17 g by mouth once daily as needed for constipation. Dissolve dose in 4 - 8 ounces of liquid and take as directed. Patient not taking: Reported on 09/16/2024 senna-docusate (SENNA-S) 8.6-50 mg per tablet Take 1 tablet by mouth two times a day as needed for constipation. Patient not taking: Reported on 09/16/2024 ondansetron orally disintegrating (ZOFRAN ODT) 4 mg disintegrating tablet Take 1 tablet by mouth every 8 hours as needed for nausea/vomiting. acetaminophen (TYLENOL EXTRA STRENGTH) 500 mg tablet Take 1-2 tablets by mouth every 6 hours as needed for pain. alendronate (FOSAMAX) 70 mg tablet Take 70 mg by mouth one time a week. On Saturdays Unknown sertraline (ZOLOFT) 50 mg tablet Take 50 mg by mouth once daily. Unknown divalproex ER (DEPAKOTE ER) 250 mg 24 hr tablet Take 2 tablets by mouth two times a day. Patient taking differently: Take 2 tablets by mouth two times a day. ALLERGIES Allergen Reactions Erythromycin Intolerance Mouth soreness and peeling. Denies swelling. Azithromycin Unknown Patient unable to recall allergy Objective PHYSICAL EXAM: AIRWAY: Mouth opening greater than 3 fingerbreadths: Yes Neck Full Range of Motion: Yes LUNGS: Lungs clear to auscultation CARDIAC: Regular rhythm,Regular rate The remainder of the physical exam is noncontributory. Assessment/Plan ASA Class 3: Patient with severe systemic disease Provisional Diagnosis/Treatment Plan: Cecal cancer and here for ported venous catheter placement for chemotherapy. Sedation Goal: Moderate SIGNATURE: Romelia Gary MD PATIENT NAME: Lakesha Koch DATE: October 21, 2024 TIME: 10:28 AM [facility] IR FLUOR GUID VASC ACCESSon 10-21-2024 IR FLUOR GUID VASC ACCESS * * *Final Report* * * DATE OF EXAM: Oct 21 2024 12:23PM [facility] [id number] - IR FLUOR GUID VASC ACCESS / PROCEDURE REASON: CECUM CA * * * * Physician Interpretation * * * * RESULT: PROCEDURE: VENOUS PORT PLACEMENT Procedural Personnel Attending physician(s): Romelia Gary M.D. Fellow physician(s): None Resident physician(s): None Advanced practice provider(s): None Medical Student(s): None Pre-procedure diagnosis: Cecal cancer Post-procedure diagnosis: Same Indication: Administration of chemotherapy Additional clinical history: None PROCEDURE SUMMARY: - Venous access with ultrasound guidance - Tunneled port insertion under fluoroscopic guidance - Additional procedure(s): None PROCEDURE DETAILS: Pre-procedure Consent: Consent obtained with the patient as documented. Medication reconciliation: Done Myah-procedure discussion: The appropriate elements of the pre-procedure discussion, safety check list and sign-out were performed. Time out was completed before start of procedure. Preparation (MIPS): The site was prepared and draped using all elements of maximal sterile barrier technique including sterile gloves, sterile gown, cap, mask, large sterile sheet, sterile ultrasound probe cover, hand hygiene and cutaneous antisepsis with 2% chlorhexidine. Medical reason for site preparation exception (MIPS): Not applicable Contrast: Contrast agent: None Contrast volume (mL): 0 Image Guidance: Fluoroscopic and sonographic guidance with digital image storage Radiation/Dose: FLUOROSCOPIC RADIATION SUMMARY: Plane A, Air Kerma: 0.5 mGy Dose Area Product (DAP): 12.00 uGym2 Fluoro Time: 0:30 min:sec Radiation dose exceed 3.5 Gy: No If radiation dose exceeded 3.5 Gy, was counseling and instructional brochure provided: N/A Anesthesia/Sedation: Level of anesthesia/sedation: Moderate sedation (conscious sedation) Anesthesia/sedation administered by: Independent trained observer under attending supervision with continuous monitoring of the patient?s level of consciousness and physiologic status Total intra-service sedation time (minutes): 23 Local anesthesia: 1 % lidocaine Antibiotics and meds: Ancef Antibiotic infusion start time: 1156 Prophylactic antibiotic administered: Within 1 hour of procedure start time or 2 hours for vancomycin or fluoroquinolones Additional med: None Additional med: None Start of procedure: 1158 End of procedure: 1223 TECHNIQUE: Patient position: Supine Access Local anesthesia was administered. The vessel was sonographically evaluated and determined to be patent. Real time ultrasound was used to visualize needle entry into the vessel and a permanent image was stored. Vein accessed: Right internal jugular vein Access technique: Micropuncture set with 21 gauge needle Venography Indication for venography: Not performed Vein catheterized: Not applicable Findings: Not applicable Port placement An incision was made at the upper chest, a pocket was created, and the catheter was tunneled subcutaneously to the venous access site and trimmed to appropriate length. The port was inserted into the pocket and the catheter was advanced into the vein under fluoroscopic guidance. The port was sutured into the pocket using absorbable suture. Catheter tip location was fluoroscopically verified and a permanent image was stored. Port placed: 8 F pressure injectable BARD Vaccess CT port with polyurethane catheter. Catheter length: 23 cm Catheter flush: Normal saline Catheter tip: Right atrium as seen on final fluoroscopy image Closure The access site and incision were closed and sterile dressings were applied. Sponge counts were ascertained. Access site closure technique: Absorbable suture (3.0 Vicryl suture), Dermabond and Steri-Strips Incision closure technique: Absorbable sutures (3.0 and 4.0 Vicryl sutures) in two layers, Dermabond and Steri-Strips Patient discharged from procedure suite with device accessed: No Sterile dressings were applied. Additional Details Additional description of procedure: None Equipment details: None Number and Type of Removed Specimens: N/A Estimated blood loss (mL): Less than 1 Standardized report: SIR_Port_v3 COMPLICATIONS: No immediate complications CONCLUSION: The patient was comfortable and was transferred to the recovery room in stable condition. The procedure was performed by the: attending radiologist, without an library media assistant. The attending radiologist performed the following procedural activities: Entire procedure IMPRESSION: INSERTION OF RIGHT-SIDED POWER-INJECTABLE SINGLE-LUMEN TUNNELED CHEST PORT, WITH CATHETER TIP IN THE EXPECTED LOCATION OF THE RIGHT ATRIUM. PLAN: THE PORT IS READY FOR USE. RECOMMENDED FLUSH PER [facility] POLICY. ATTESTATION: Signer name: Tino (more content not included)... [facility] IR US GUIDE VASC ACCESSon IR US GUIDE VASC ACCESS * * *Final Report* * * DATE OF EXAM: Oct 21 2024 12:23PM [id number] - IR US GUIDE VASC ACCESS / PROCEDURE REASON: CECUM CA * * * * Physician Interpretation * * * * RESULT: PROCEDURE: VENOUS PORT PLACEMENT Procedural Personnel Attending physician(s): Romelia Gary M.D. Fellow physician(s): None Resident physician(s): None Advanced practice provider(s): None Medical Student(s): None Pre-procedure diagnosis: Cecal cancer Post-procedure diagnosis: Same Indication: Administration of chemotherapy Additional clinical history: None PROCEDURE SUMMARY: - Venous access with ultrasound guidance - Tunneled port insertion under fluoroscopic guidance - Additional procedure(s): None PROCEDURE DETAILS: Pre-procedure Consent: Consent obtained with the patient as documented. Medication reconciliation: Done Myah-procedure discussion: The appropriate elements of the pre-procedure discussion, safety check list and sign-out were performed. Time out was completed before start of procedure. Preparation (MIPS): The site was prepared and draped using all elements of maximal sterile barrier technique including sterile gloves, sterile gown, cap, mask, large sterile sheet, sterile ultrasound probe cover, hand hygiene and cutaneous antisepsis with 2% chlorhexidine. Medical reason for site preparation exception (MIPS): Not applicable Contrast: Contrast agent: None Contrast volume (mL): 0 Image Guidance: Fluoroscopic and sonographic guidance with digital image storage Radiation/Dose: FLUOROSCOPIC RADIATION SUMMARY: Plane A, Air Kerma: 0.5 mGy Dose Area Product (DAP): 12.00 uGym2 Fluoro Time: 0:30 min:sec Radiation dose exceed 3.5 Gy: No If radiation dose exceeded 3.5 Gy, was counseling and instructional brochure provided: N/A Anesthesia/Sedation: Level of anesthesia/sedation: Moderate sedation (conscious sedation) Anesthesia/sedation administered by: Independent trained observer under attending supervision with continuous monitoring of the patient?s level of consciousness and physiologic status Total intra-service sedation time (minutes): 23 Local anesthesia: 1 % lidocaine Antibiotics and meds: Ancef Antibiotic infusion start time: 1156 Prophylactic antibiotic administered: Within 1 hour of procedure start time or 2 hours for vancomycin or fluoroquinolones Additional med: None Additional med: None Start of procedure: 1158 End of procedure: 1223 TECHNIQUE: Patient position: Supine Access Local anesthesia was administered. The vessel was sonographically evaluated and determined to be patent. Real time ultrasound was used to visualize needle entry into the vessel and a permanent image was stored. Vein accessed: Right internal jugular vein Access technique: Micropuncture set with 21 gauge needle Venography Indication for venography: Not performed Vein catheterized: Not applicable Findings: Not applicable Port placement An incision was made at the upper chest, a pocket was created, and the catheter was tunneled subcutaneously to the venous access site and trimmed to appropriate length. The port was inserted into the pocket and the catheter was advanced into the vein under fluoroscopic guidance. The port was sutured into the pocket using absorbable suture. Catheter tip location was fluoroscopically verified and a permanent image was stored. Port placed: 8 F pressure injectable BARD Vaccess CT port with polyurethane catheter. Catheter length: 23 cm Catheter flush: Normal saline Catheter tip: Right atrium as seen on final fluoroscopy image Closure The access site and incision were closed and sterile dressings were applied. Sponge counts were ascertained. Access site closure technique: Absorbable suture (3.0 Vicryl suture), Dermabond and Steri-Strips Incision closure technique: Absorbable sutures (3.0 and 4.0 Vicryl sutures) in two layers, Dermabond and Steri-Strips Patient discharged from procedure suite with device accessed: No Sterile dressings were applied. Additional Details Additional description of procedure: None Equipment details: None Number and Type of Removed Specimens: N/A Estimated blood loss (mL): Less than 1 Standardized report: SIR_Port_v3 COMPLICATIONS: No immediate complications CONCLUSION: The patient was comfortable and was transferred to the recovery room in stable condition. The procedure was performed by the: attending radiologist, without an library media assistant. The attending radiologist performed the following procedural activities: Entire procedure IMPRESSION: INSERTION OF RIGHT-SIDED POWER-INJECTABLE SINGLE-LUMEN TUNNELED CHEST PORT, WITH CATHETER TIP IN THE EXPECTED LOCATION OF THE RIGHT ATRIUM. PLAN: THE PORT IS READY FOR USE. RECOMMENDED FLUSH PER [facility] POLICY. ATTESTATION: Signer name: Romelia (more content not included)... [facility] 10-15-2024 [facility] 10-14-2024 [facility] 10-11-2024 [facility] CNOVSPon 10-10-2024 CNOVSP Normal [facility] Basic Metabolic Profile (BMP )on 10-03-2024 BUN Normal 4-19 [facility] Comment on above: Result Comment: Canc elled via OM: Order cancelled - Patient discharged Performed By: #### L 500.2500, L100.0100 #### [facility] [address] [place], [address] BUN/CRE Normal 10-20 [facility] Comment on above: Result Comment: Canc elled via OM: Order cancelled - Patient discharged Performed By: #### L 500.2500, L100.0100 #### [facility] [address] [place], [address] Calcium Normal 7.6-11.0 [facility] Comment on above: Result Comment: Canc elled via OM: Order cancelled - Patient discharged Performed By: #### L 500.2500, L100.0100 #### [facility] [address] [place], [address] CL Normal 98-108 [facility] Comment on above: Result Comment: Canc elled via OM: Order cancelled - Patient discharged Performed By: #### L 500.2500, L100.0100 #### [facility] [address] [place], [address] CO2 Normal 21.0-32.0 [facility] Comment on above: Result Comment: Canc elled via OM: Order cancelled - Patient discharged Performed By: #### L 500.2500, L100.0100 #### [facility] [address] [place], [address] CREAT,SERUM Normal 0.70-1.20 [facility] Comment on above: Result Comment: Canc elled via OM: Order cancelled - Patient discharged Performed By: #### L 500.2500, L100.0100 #### [facility] [address] [place], [address] eGFR Normal >60 [facility] Comment on above: Result Comment: Canc elled via OM: Order cancelled - Patient discharged Performed By: #### L 500.2500, L100.0100 #### [facility] [address] [place], [address] GAP Normal 5-15 [facility] Comment on above: Result Comment: Canc elled via OM: Order cancelled - Patient discharged Performed By: #### L 500.2500, L100.0100 #### [facility] [address] [place], [address] GLU Normal 70-99 [facility] Comment on above: Result Comment: Canc elled via OM: Order cancelled - Patient discharged Performed By: #### L 500.2500, L100.0100 #### [facility] [address] [place], [address] Potassium Normal 3.3-5.1 [facility] Comment on above: Result Comment: Canc elled via OM: Order cancelled - Patient discharged Performed By: #### L 500.2500, L100.0100 #### [facility] [address] [place], [address] Basic Metabolic Profile (BMP) Normal 133-145 [facility] Comment on above: Result Comment: Canc elled via OM: Order cancelled - Patient discharged Performed By: #### L 500.2500, L100.0100 #### [facility] [address] [place], [address] CBC W/Diff, Automatedon 07-1 0-2024 Absolute Neut Normal 2.0-7.7 [facility] Comment on above: Result Comment: Canc elled via OM: Order cancelled - Patient discharged Performed By: #### L 500.2500, L100.0100 #### [facility] [address] [place], [address] HCT Normal 37-47 [facility] Comment on above: Result Comment: Canc elled via OM: Order cancelled - Patient discharged Performed By: #### L 500.2500, L100.0100 #### [facility] [address] [place], [address] HGB Normal 12.0-15.0 [facility] Comment on above: Result Comment: Canc elled via OM: Order cancelled - Patient discharged Performed By: #### L 500.2500, L100.0100 #### [facility] [address] [place], [address] MCH Normal 27.0-32.0 [facility] Comment on above: Result Comment: Canc elled via OM: Order cancelled - Patient discharged Performed By: #### L 500.2500, L100.0100 #### [facility] [address] [place], [address] MCHC Normal 32-36 [facility] Comment on above: Result Comment: Canc elled via OM: Order cancelled - Patient discharged Performed By: #### L 500.2500, L100.0100 #### [facility] [address] [place], [address] MCV Normal 81-99 [facility] Comment on above: Result Comment: Canc elled via OM: Order cancelled - Patient discharged Performed By: #### L 500.2500, L100.0100 #### [facility] [address] [place], [address] NEUT% Normal 47-70 [facility] Comment on above: Result Comment: Canc elled via OM: Order cancelled - Patient discharged Performed By: #### L 500.2500, L100.0100 #### [facility] [address] [place], [address] PLT Normal 150-450 [facility] Comment on above: Result Comment: Canc elled via OM: Order cancelled - Patient discharged Performed By: #### L 500.2500, L100.0100 #### [facility] [address] [place], [address] RBC Normal 4.2-5.4 [facility] Comment on above: Result Comment: Canc elled via OM: Order cancelled - Patient discharged Performed By: #### L 500.2500, L100.0100 #### [facility] [address] [place], [address] RDW CV Normal 11.6-14.6 [facility] Comment on above: Result Comment: Canc elled via OM: Order cancelled - Patient discharged Performed By: #### L 500.2500, L100.0100 #### [facility] [address] [place], [address] RDW SD Normal 35.1-43.9 [facility] Comment on above: Result Comment: Canc elled via OM: Order cancelled - Patient discharged Performed By: #### L 500.2500, L100.0100 #### [facility] [address] [place], [address] WBC Normal 4.4-11.0 [facility] Comment on above: Result Comment: Canc elled via OM: Order cancelled - Patient discharged Performed By: #### L 500.2500, L100.0100 #### [facility] [address] [place], [address] CNPNon 10-02-2024 CNPN Normal [facility] Basic Metabolic Profile (BMP )on 09-26-2024 BUN Normal 4-19 [facility] Comment on above: Result Comment: Canc elled via OM: Order cancelled - Patient discharged Performed By: #### L 500.2500, L100.0100 #### [facility] [address] [place], [address] BUN/CRE Normal 10-20 [facility] Comment on above: Result Comment: Canc elled via OM: Order cancelled - Patient discharged Performed By: #### L 500.2500, L100.0100 #### [facility] [address] [place], [address] Calcium Normal 7.6-11.0 [facility] Comment on above: Result Comment: Canc elled via OM: Order cancelled - Patient discharged Performed By: #### L 500.2500, L100.0100 #### [facility] [address] [place], [address] CL Normal 98-108 [facility] Comment on above: Result Comment: Canc elled via OM: Order cancelled - Patient discharged Performed By: #### L 500.2500, L100.0100 #### [facility] [address] [place], [address] CO2 Normal 21.0-32.0 [facility] Comment on above: Result Comment: Canc elled via OM: Order cancelled - Patient discharged Performed By: #### L 500.2500, L100.0100 #### [facility] [address] [place], [address] CREAT,SERUM Normal 0.70-1.20 [facility] Comment on above: Result Comment: Canc elled via OM: Order cancelled - Patient discharged Performed By: #### L 500.2500, L100.0100 #### [facility] [address] [place], [address] eGFR Normal >60 [facility] Comment on above: Result Comment: Canc elled via OM: Order cancelled - Patient discharged Performed By: #### L 500.2500, L100.0100 #### [facility] [address] [place], [address] GAP Normal 5-15 [facility] Comment on above: Result Comment: Canc elled via OM: Order cancelled - Patient discharged Performed By: #### L 500.2500, L100.0100 #### [facility] [address] [place], [address] GLU Normal 70-99 [facility] Comment on above: Result Comment: Canc elled via OM: Order cancelled - Patient discharged Performed By: #### L 500.2500, L100.0100 #### [facility] [address] [place], [address] Potassium Normal 3.3-5.1 [facility] Comment on above: Result Comment: Canc elled via OM: Order cancelled - Patient discharged Performed By: #### L 500.2500, L100.0100 #### [facility] [address] [place], [address] Basic Metabolic Profile (BMP) Normal 133-145 [facility] Comment on above: Result Comment: Canc elled via OM: Order cancelled - Patient discharged Performed By: #### L 500.2500, L100.0100 #### [facility] [address] [place], [address] CBC W/Diff, Automatedon 07-0 -2024 Absolute Neut Normal 2.0-7.7 [facility] Comment on above: Result Comment: Canc elled via OM: Order cancelled - Patient discharged Performed By: #### L 500.2500, L100.0100 #### [facility] [address] [place], [address] HCT Normal 37-47 [facility] Comment on above: Result Comment: Canc elled via OM: Order cancelled - Patient discharged Performed By: #### L 500.2500, L100.0100 #### [facility] [address] [place], [address] HGB Normal 12.0-15.0 [facility] Comment on above: Result Comment: Canc elled via OM: Order cancelled - Patient discharged Performed By: #### L 500.2500, L100.0100 #### [facility] [address] [place], [address] MCH Normal 27.0-32.0 [facility] Comment on above: Result Comment: Canc elled via OM: Order cancelled - Patient discharged Performed By: #### L 500.2500, L100.0100 #### [facility] [address] [place], [address] MCHC Normal 32-36 [facility] Comment on above: Result Comment: Canc elled via OM: Order cancelled - Patient discharged Performed By: #### L 500.2500, L100.0100 #### [facility] [address] [place], [address] MCV Normal 81-99 [facility] Comment on above: Result Comment: Canc elled via OM: Order cancelled - Patient discharged Performed By: #### L 500.2500, L100.0100 #### [facility] [address] [place], [address] NEUT% Normal 47-70 [facility] Comment on above: Result Comment: Canc elled via OM: Order cancelled - Patient discharged Performed By: #### L 500.2500, L100.0100 #### [facility] [address] [place], [address] PLT Normal 150-450 [facility] Comment on above: Result Comment: Canc elled via OM: Order cancelled - Patient discharged Performed By: #### L 500.2500, L100.0100 #### [facility] [address] [place], [address] RBC Normal 4.2-5.4 [facility] Comment on above: Result Comment: Canc elled via OM: Order cancelled - Patient discharged Performed By: #### L 500.2500, L100.0100 #### [facility] [address] [place], [address] RDW CV Normal 11.6-14.6 [facility] Comment on above: Result Comment: Canc elled via OM: Order cancelled - Patient discharged Performed By: #### L 500.2500, L100.0100 #### [facility] [address] [place], [address] RDW SD Normal 35.1-43.9 [facility] Comment on above: Result Comment: Canc elled via OM: Order cancelled - Patient discharged Performed By: #### L 500.2500, L100.0100 #### [facility] [address] [place], [address] WBC Normal 4.4-11.0 [facility] Comment on above: Result Comment: Canc elled via OM: Order cancelled - Patient discharged Performed By: #### L 500.2500, L100.0100 #### [facility] [address] [place], [address] CNOVSPon 09-25-2024 CNOVSP Normal [facility] CNPNon 09-25-2024 CNPN Normal [facility] REFERRAL FOR ADDITIONAL BIOM ARKER AND MOLECULAR TESTINGon 09-25-2024 REFERRAL FOR ADDITIONAL BIOMARKER AND MOLECULAR TESTING Normal [facility] Comment on above: Order Comment: Speci men Type: TISSUE SPECIMENOrdering Facility: [facility] Address: [address] [place] [id number] Result Comment: Requ est has been received for evaluation and the results will be issued separately. Performed By: #### A PMOL ####[facility] [id number] [place] [address] [place] Inital Evaluation (1) - PTon 09-23-2024 Inital Evaluation (1) - PT [facility] [address] [place] [address] [address] [place] [address] / REHABILITATION SERVICES INITIAL EVALUATION MR#: [id number] Acct: [id number] Name: LAKESHA KOCH Rep #: [id number] : 1960 64 From: Pb Wright PT, ATC Referring Dr.: Aubrey Lopez MECHANIC SENIORMathewC Status: RE G RCR Insurance: MEDICARE PART A B SELF PAY INSURANCE Patient's Visit Information Visit Information Visit Information: LAKESHA KOCH is a 64 year old F referred to Physical Therapy by VEENA Kothari, MECHANIC SENIOR-C with a diagnosis of Femoral nerve ligation. Date of Evaluation: 09/23/24 Physical Therapist: Pb Wright, PT, ATC Visit Plan Frequency: 3x /Week Duration: 4-6 Weeks Plan: R LE strengthening with primary focus on quads, core strengthening, gait training, stair negotiation, and HEP Subjective Subjective: Pt reports she had colon cancer in December of last year. 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 Pt notes they had to cut the femoral nerve in order to get that tumor fully out. This has resulted in R quad weakness. Pt notes she is having a hard time walking without her brace because her R knee wants to give out. Pt reports the doctor had to scape the tumor off of the femoral nerve. Pt reports she is completely numb on the anterior aspect of her R LE. Pt now walks with a walker, which she never used an AD prior to this surgery. Pt lives in a 2 story home with her bedroom up stairs. Pt reports she has to negotiate her steps on stair at a time. 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 Pt reports she has nerve pain today 4/10 Pain R ant thigh: Pain Intensity (Out of 10): 4 Pain Intensity Range: 7 Objective Objective: Neuro: B LE sensation is WNL to light touch Observation: Significant atrophy in R quad. MMT: L hip flex= 15, knee ext= 28; R hip flex= 7, ext= 0 #F ROM: WFL compared bilaterally Six min walk test: 1020 feet. Balance/Special Test Scores Lower Extremity Functional Score: 31 Goals Goal 1:: Increase R knee extension strength to 5 #F to aid with stair negotiation Goal Time Frame: 4-6 Weeks Goal 2:: Pt will be able to negotiate 10 stairs reciprocally with 1 handrail to aid with safety at home Goal Time Frame: 4-6 Weeks Goal 3:: I with HEP Goal Time Frame: 4-6 Weeks Rehabilitation Potential Physical Therapy Diagnosis: Pt has R LE weakness and an unsteady gait secondary to femoral nerve ligation Rehabilitation Potential: Good Anticipated Interventions Patient/Client Instruction: Educate patient on: Condition and Plan of Care For the Purpose of:: To improve self management Therapeutic Exercise to Include: Strength training, Endurance training, Balance training, Gait and locomotor training and Dynamic Lumbar Stabilization For the Purpose of:: To decrease pain, To improve muscle performance and motor function and To increase tolerance to activity/condition/positio n Text: Thank you for the opportunity to evaluate your patient. For Medicare and Medicare HMO plans, please review the plan of care and approve it. It will need to be FAXED BACK to us at [phone] for Medicare purposes. For Medicare only, by signing this I certify the plan of care. Please let me know if there are questions or concerns regarding this plan of care. Physician Signature: Date: 09/23/24 1800 CC: Aubrey KIRBY Beam [facility] Signed Normal [facility] Basic Metabolic Profile (BMP )on 09-19-2024 BUN Normal 07-13 [facility] Comment on above: Result Comment: Canc elled via OM: Order cancelled - Patient discharged Performed By: #### L 500.2500, L100.0100 #### [facility] [address] [place], [place], [address] BUN/CRE Normal - [facility] Comment on above: Result Comment: Canc elled via OM: Order cancelled - Patient discharged Performed By: #### L 500.2500, L100.0100 #### [facility] [address] [place], [address] Calcium Normal 7.6-11.0 [facility] Comment on above: Result Comment: Canc elled via OM: Order cancelled - Patient discharged Performed By: #### L 500.2500, L100.0100 #### [facility] [address] [place], [address] CL Normal 98-108 [facility] Comment on above: Result Comment: Canc elled via OM: Order cancelled - Patient discharged Performed By: #### L 500.2500, L100.0100 #### [facility] [address] [place], [address] CO2 Normal 21.0-32.0 [facility] Comment on above: Result Comment: Canc elled via OM: Order cancelled - Patient discharged Performed By: #### L 500.2500, L100.0100 #### [facility] [address] [place], [address] CREAT,SERUM Normal 0.70-1.20 [facility] Comment on above: Result Comment: Canc elled via OM: Order cancelled - Patient discharged Performed By: #### L 500.2500, L100.0100 #### [facility] [address] [place], [address] eGFR Normal >60 [facility] Comment on above: Result Comment: Canc elled via OM: Order cancelled - Patient discharged Performed By: #### L 500.2500, L100.0100 #### [facility] [address] [place], [address] GAP Normal 5-15 [facility] Comment on above: Result Comment: Canc elled via OM: Order cancelled - Patient discharged Performed By: #### L 500.2500, L100.0100 #### [facility] [address] [place], [address] GLU Normal 70-99 [facility] Comment on above: Result Comment: Canc elled via OM: Order cancelled - Patient discharged Performed By: #### L 500.2500, L100.0100 #### [facility] [address] [place], [address] Potassium Normal 3.3-5.1 [facility] Comment on above: Result Comment: Canc elled via OM: Order cancelled - Patient discharged Performed By: #### L 500.2500, L100.0100 #### [facility] [address] [place], [address] Basic Metabolic Profile (BMP) Normal 133-145 [facility] Comment on above: Result Comment: Canc elled via OM: Order cancelled - Patient discharged Performed By: #### L 500.2500, L100.0100 #### [facility] [address] [place], [address] CBC W/Diff, Automatedon 06-2 Absolute Neut Normal 2.0-7.7 [facility] Comment on above: Result Comment: Canc elled via OM: Order cancelled - Patient discharged Performed By: #### L 500.2500, L100.0100 #### [facility] [address] [place], [address] HCT Normal 37-47 [facility] Comment on above: Result Comment: Canc elled via OM: Order cancelled - Patient discharged Performed By: #### L 500.2500, L100.0100 #### [facility] [address] [place], [address] HGB Normal 12.0-15.0 [facility] Comment on above: Result Comment: Canc elled via OM: Order cancelled - Patient discharged Performed By: #### L 500.2500, L100.0100 #### [facility] [address] [place], [address] MCH Normal 27.0-32.0 [facility] Comment on above: Result Comment: Canc elled via OM: Order cancelled - Patient discharged Performed By: #### L 500.2500, L100.0100 #### [facility] [address] [place], [address] MCHC Normal 32-36 [facility] Comment on above: Result Comment: Canc elled via OM: Order cancelled - Patient discharged Performed By: #### L 500.2500, L100.0100 #### [facility] [address] [place], [address] MCV Normal 81-99 [facility] Comment on above: Result Comment: Canc elled via OM: Order cancelled - Patient discharged Performed By: #### L 500.2500, L100.0100 #### [facility] [address] [place], [address] NEUT% Normal 47-70 [facility] Comment on above: Result Comment: Canc elled via OM: Order cancelled - Patient discharged Performed By: #### L 500.2500, L100.0100 #### [facility] [address] [place], [address] PLT Normal 150-450 [facility] Comment on above: Result Comment: Canc elled via OM: Order cancelled - Patient discharged Performed By: #### L 500.2500, L100.0100 #### [facility] [address] [place], [address] RBC Normal 4.2-5.4 [facility] Comment on above: Result Comment: Canc elled via OM: Order cancelled - Patient discharged Performed By: #### L 500.2500, L100.0100 #### [facility] [address] [place], [address] RDW CV Normal 11.6-14.6 [facility] Comment on above: Result Comment: Canc elled via OM: Order cancelled - Patient discharged Performed By: #### L 500.2500, L100.0100 #### [facility] [address] [place], [address] RDW SD Normal 35.1-43.9 [facility] Comment on above: Result Comment: Canc elled via OM: Order cancelled - Patient discharged Performed By: #### L 500.2500, L100.0100 #### [facility] [address] [place], [address] WBC Normal 4.4-11.0 [facility] Comment on above: Result Comment: Canc elled via OM: Order cancelled - Patient discharged Performed By: #### L 500.2500, L100.0100 #### [facility] [address] [place], [address] CNOVon 09-16-2024 CNOV Normal [facility] Abdomen/Pelvis WITH Contrast on 09-13-2024 Abdomen/Pelvis WITH Contrast [facility] Services [address] [place] [address] Abdomen/Pelvis WITH Contrast MR#: [id number] Acct: [id number] Name: LAKESHA KOCH ILENE Rep #: [id number] : 1960 F 64 From: Anuj Rawls MD PCP: Aubrey Lopez [facility] MECHANIC SENIOR-C Status: REG CLI Study: Abdomen/Pelvis WITH Contrast Date of Exam: Exam# [id number] Ordering Dr: Qamar Smith MD PROCEDURE: ABDOMEN/PELVIS WITH CONTRAST 09/13/2024 REASON FOR EXAM: POST SURGICAL ABD PAIN History of colon cancer status post colon and small bowel resection, ureteral stent, right salpingo- oophorectomy, appendectomy and lysis of adhesions. TECHNIQUE: ABDOMEN/PELVIS WITH CONTRAST. Coronal and Sagittal reconstruction series were provided. CONTRAST: Isovue 370 VOLUME: 74 mL One or more dose reduction techniques were used (e.g., Automated exposure control, adjustment of the mA and/or kV according to patient size, use of iterative reconstruction technique. RADIATION DOSE SUMMARY: CTDlvol: 13.28 mGy DLP: 204.34 mGycm COMPARISON: CT abdomen and pelvis with IV contrast, 12/11/2019 FINDINGS: Lung bases: The lung bases are clear. There are no pleural effusions. The heart size is normal. There is a minimal pericardial effusion. There is no calcific vascular disease of the coronary arteries evident. Liver: Normal. Gallbladder: The gallbladder is hydropic measuring 4.6 cm in short axis diameter. No gallstones are identified. There is no intra or extrahepatic biliary ductal dilatation. Spleen: Normal. Pancreas: Normal. Adrenals: Normal. Kidneys: There is a cortical scar in the upper pole of the right kidney. There is an associated calyceal diverticulum. There is a small cortical cyst in the lower pole cortex of the right kidney. There is a cortical cyst in the interpolar cortex of the left kidney. Bladder: Normal unenhanced appearance. Reproductive Organs: Status post right oophorectomy. The uterus and left ovary are unremarkable. There is no pelvic or inguinal lymphadenopathy. Bowel: There is circumferential thickening of the wall of the distal esophagus consistent with esophagitis. There is oral contrast in the distal esophagus consistent with gastroesophageal reflux. There has been interval decrease in the thickening of the wall of the cecum and decrease in the soft tissue within the surrounding fat. The terminal ileum and ileocecal valve appear unremarkable. There is residual dilatation of the small bowel and some of the loops remain abnormally dilated. Appendix: Surgically absent. Lymph nodes: There is no significant mesenteric or retroperitoneal lymphadenopathy. Vasculature: There is minimal calcific vascular disease of the abdominal aorta. The inferior vena cava and portal venous system are normal. Peritoneum / Retroperitoneum: There is free fluid in the right perihepatic space in the mesentery and in the pelvis. There is diffuse stranding of the mesenteric fat. Bones: There is a large Schmorl's node in the superior endplate of L2. There is mild multilevel degenerative disc disease of the lumbar spine. There is moderate levoscoliosis of the thoracolumbar spine. CT/Abdomen/Pelvis WITH Contrast IMPRESSION: 1. Interval decrease in the inflammatory reaction surrounding the cecum and terminal ileum. There is no residual thickening of the cecal wall. The ileocecal valve and terminal ileum are unremarkable. There is residual dilatation of the mesenteric small bowel without obstruction. 2. The gallbladder is hydropic measuring 4.6 cm in short axis diameter. This condition was not present previously. 3. There is free fluid in the abdomen not present previously. 4. Other findings as noted. Reading Location: [id number] CC: Dr. Qamar Smith MD; [place] [facility] MECHANIC SENIORNeptali Beam [employer] Translator: Signed Normal [facility] CNPNon 09-13-2024 CNPN Normal [facility] Absolute lymphocyte countOrd ered By: Qamar Smith on 09-12-2024 Lymphocytes Auto (Unsp spec) [#/Vol] 2.30 10*3/uL 0.83-4.51 [facility] Absolute neutrophil countOrd ered By: Qamar Smith on 09-12-2024 Neutrophils (Bld) [#/Vol] 9.6 10*3/uL High 2.0-7.7 [facility] Anion gap in Serum or Plasma Ordered By: Qamar Smith on 09-12-2024 Anion gap [Moles/Vol] 12 mmol/L 5-[address] [facility] Automated lymphocyte count a s percentage of total leukocytesOrdered By: Qamar Smith on 09-12-2024 Lymphocytes/100 WBC Auto (Unsp spec) 17.0 % Low 19-41 [facility] BUN/creatinine ratioOrdered By: Qamar Smith on 09-12-2024 Urea nitrogen/Creatinine [Mass ratio] 45.8 mg/mg High 10-20 [facility] Basic Metabolic Profile (BMP )on 09-12-2024 BUN/CRE 45.8 RATIO High 10- [facility] Comment on above: Performed By: #### L 500.2500, L100.0100 #### [facility] [address] [place], [address] Calcium [Mass/Vol] 8.9 mg/dL Normal 7.6-11.0 [facility] Comment on above: Performed By: #### L 500.2500, L100.0100 #### [facility] [address] [place], [address] Chloride [Moles/Vol] 99 mmol/L Normal 98-108 [facility] Comment on above: Performed By: #### L 500.2500, L100.0100 #### [facility] [address] [place], [address] CO2 [Moles/Vol] 27.6 mmol/L Normal 21.0-32.0 [facility] Comment on above: Performed By: #### L 500.2500, L100.0100 #### [facility] [address] [place], [address] Creatinine [Mass/Vol] 0.66 mg/dL Low 0.70-1.[address] [facility] Comment on above: Performed By: #### L 500.2500, L100.0100 #### [facility] [address] [place], [address] ECRCL 44.28 ml/min Low 50-250 [facility] Comment on above: Performed By: #### L 500.2500, L100.0100 #### [facility] [address] [place], [address] GAP 12 Normal 5-15 [facility] Comment on above: Performed By: #### L 500.2500, L100.0100 #### [facility] [address] [place], [address] GFR/1.73 sq M.predicted among non-blacks MDRD (S/P/Bld) [Vol rate/Area] 97 mL/min/{1.73_m2} Normal >60 [facility] Comment on above: Result Comment: mL/m in/1.73m2 CKD-EPI Creatinine Equation (2020) Performed By: #### L 500.2500, L100.0100 #### [facility] [address] [place], [address] Glucose [Mass/Vol] 127 mg/dL High 70-99 [facility] Comment on above: Performed By: #### L 500.2500, L100.0100 #### [facility] [address] [place], [address] Potassium [Moles/Vol] 3.9 mmol/L Normal 3.3-5.[address] [facility] Comment on above: Performed By: #### L 500.2500, L100.0100 #### [facility] [address] [place], [address] Sodium [Moles/Vol] 139 mmol/L Normal 133-145 [facility] Comment on above: Performed By: #### L 500.2500, L100.0100 #### [facility] [address] [place], [address] Urea nitrogen [Mass/Vol] 30 mg/dL High -19 [facility] Comment on above: Performed By: #### L 500.2500, L100.0100 #### [facility] [address] [place], [address] Basophil percentageOrdered B y: Qamar Smith on 09-12-2024 Basophils/100 WBC (Bld) 1.0 % 0-1 [facility] CBC W/Diff, Automatedon 08-25 Absolute Lymph 2.30 X10 3/uL Normal 0.83-4.51 [facility] Comment on above: Performed By: #### L 500.2500, L100.0100 #### [facility] [address] [place], [address] Absolute Neut 9.6 X10 3/uL High 2.0-7.7 [facility] Comment on above: Performed By: #### L 500.2500, L100.0100 #### [facility] [address] [place], [address] Basophils/100 WBC (Bld) 1.0 % Normal 0-1 [facility] Comment on above: Performed By: #### L 500.2500, L100.0100 #### [facility] [address] [place], [address] Eosinophils/100 WBC (Bld) 3.4 % Normal 0-5 [facility] Comment on above: Performed By: #### L 500.2500, L100.0100 #### [facility] [address] [place], [address] Erythrocyte distribution width (RBC) [Ratio] 13.9 % Normal 11.6-14.6 [facility] Comment on above: Performed By: #### L 500.2500, L100.0100 #### [facility] [address] [place], [address] Hematocrit (Bld) [Volume fraction] 38.1 % Normal 37-47 [facility] Comment on above: Performed By: #### L 500.2500, L100.0100 #### [facility] [address] [place], [address] Hemoglobin (Bld) [Mass/Vol] 12.8 g/dL Normal 12.0-15.0 [facility] Comment on above: Performed By: #### L 500.2500, L100.0100 #### [facility] [address] [place], [address] IG% 0.300 Normal 0.0-0.9 [facility] Comment on above: Result Comment: IG% - Immature Granulocytes (promyelocytes, myelocytes and metamyelocytes) > 1% indicates that a LEFT SHIFT is Present. Performed By: #### L 500.2500, L100.0100 #### [facility] [address] [place], [address] Lymphocytes/100 WBC (Bld) 17.0 % Low 19-41 [facility] Comment on above: Performed By: #### L 500.2500, L100.0100 #### [facility] [address] [place], [address] MCH (RBC) [Entitic mass] 31.6 pg Normal 27.0-32.0 [facility] Comment on above: Performed By: #### L 500.2500, L100.0100 #### [facility] [address] [place], [address] MCHC (RBC) [Mass/Vol] 33.6 g/dL Normal 32-[address] [facility] Comment on above: Performed By: #### L 500.2500, L100.0100 #### [facility] [address] [place], [address] MCV (RBC) [Entitic vol] 94.1 fL Normal 81-99 [facility] Comment on above: Performed By: #### L 500.2500, L100.0100 #### [facility] [address] [place], [address] Monocytes/100 WBC (Bld) 7.2 % Normal 0-10 [facility] Comment on above: Performed By: #### L 500.2500, L100.0100 #### [facility] [address] [place], [address] Neutrophils/100 WBC (Bld) 71.1 % High 47-70 [facility] Comment on above: Performed By: #### L 500.2500, L100.0100 #### [facility] [address] [place], [address] Nucleated RBC (Bld) [#/Vol] 0 10*3/uL Normal 0-5 [facility] Comment on above: Performed By: #### L 500.2500, L100.0100 #### [facility] [address] [place], [address] Platelet mean volume (Bld) [Entitic vol] 9.4 fL Normal 6.2-12.0 [facility] Comment on above: Performed By: #### L 500.2500, L100.0100 #### [facility] [address] [place], [address] Platelets (Bld) [#/Vol] 530 10*3/uL High 150-450 [facility] Comment on above: Performed By: #### L 500.2500, L100.0100 #### [facility] [address] [place], [address] RBC (Bld) [#/Vol] 4.05 10*6/uL Low 4.2-5.4 [facility] Comment on above: Performed By: #### L 500.2500, L100.0100 #### [facility] [address] [place], [address] RDW SD 47.8 fl High 35.1-43.9 [facility] Comment on above: Performed By: #### L 500.2500, L100.0100 #### [facility] [address] [place], [address] WBC (Bld) [#/Vol] 13.5 10*3/uL High 4.4-11.0 [facility] Comment on above: Performed By: #### L 500.2500, L100.0100 #### [facility] [address] [place], [address] Carbon dioxide, total [Moles /volume] in Central venous bloodOrdered By: Qamar Smith on 09-12-2024 CO2 [Moles/Vol] 27.6 mmol/L 21.0-32.0 [facility] Chloride assayOrdered By: Bhanu Smith on 09-12-2024 Chloride [Moles/Vol] 99 mmol/L 98-108 [facility] Eosinophil percentageOrdered By: Qamar Smith on 09-12-2024 Eosinophils/100 WBC (Bld) 3.4 % 0-5 [facility] Erythrocyte distribution wid th ratioOrdered By: Qamar Smith on 09-12-2024 Erythrocyte distribution width (RBC) [Ratio] 13.9 % 11.6-14.6 [facility] Erythrocyte distribution wid th standard deviationOrdered By: Qamar Smith on 09-12-2024 Erythrocyte distribution width (RBC) [Ratio] 47.8 fl High 35.1-43.9 [facility] Glomerular filtration rate ( GFR) estimation/1.73 sq m using serum, plasma, or whole bOrdered By: Qamar Smith on 09-12-2024 GFR/1.73 sq M.predicted among non-blacks MDRD (S/P/Bld) [Vol rate/Area] 97 mL/min/{1.73_m2} >60 [facility] Comment on above: mL/min/1.73m2 CKD-EP I Creatinine Equation (2020) Hematocrit Auto (Bld) [Volum e fraction]Ordered By: Qamar Smith on 09-12-2024 Hematocrit (Bld) [Volume fraction] 38.1 % 37-47 [facility] Hemoglobin measurementOrdere d By: Qamar Luis 09-12-2024 Hemoglobin (Bld) [Mass/Vol] 12.8 g/dL 12.0-15.0 [facility] Immature granulocytes/100 WB C Auto (Bld)Ordered By: Qamar Smith 09-12-2024 Immature granulocytes/100 WBC (Bld) 0.300 % 0.0-0.9 [facility] Comment on above: IG% - Immature Granu locytes (promyelocytes, myelocytes and metamyelocytes) > 1% indicates that a LEFT SHIFT is Present. MCV (mean corpuscular volume ) determinationOrdered By: Qamar Smith 09-12-2024 MCV (RBC) [Entitic vol] 94.1 fL 81-99 [facility] Mean corpuscular hemoglobin (MCH) determinationOrdered By: Qamar Smith 09-12-2024 MCH (RBC) [Entitic mass] 31.6 pg 27.0-32.0 [facility] Mean corpuscular hemoglobin concentration (MCHC) determinationOrdered By: Qamar [facility] 09-12-2024 MCHC (RBC) [Mass/Vol] 33.6 g/dL 32-[address] [facility] Mean platelet volume determi nationOrdered By: Qamar Luis 09-12-2024 Platelet mean volume (Bld) [Entitic vol] 9.4 fL 6.2-12.0 [facility] Monocyte percentageOrdered B y: Qamar Smith on 09-12-2024 Monocytes/100 WBC (Bld) 7.2 % 0-10 [facility] Neutrophil percentageOrdered By: Qamar Smith on 09-12-2024 Neutrophils/100 WBC (Bld) 71.1 % High 47-70 [facility] Nucleated red blood cell per centageOrdered By: Qamar Smith on 09-12-2024 Nucleated RBC/100 WBC (Bld) [Ratio] 0 % 0-5 [facility] Platelet countOrdered By: Bhanu Smith on 09-12-2024 Platelets (Bld) [#/Vol] 530 10*3/uL High 150-450 [facility] Potassium measurement (mass/ volume)Ordered By: Qamar Smith on 09-12-2024 Potassium (Unsp spec) [Mass/Vol] 3.9 mmol/L 3.3-5.1 [facility] RBC Auto (Bld) [#/Vol]Ordere d By: Qamar Smith on 09-12-2024 RBC (Bld) [#/Vol] 4.05 10*6/uL Low 4.2-5.4 [facility] Serum creatinine measurement (mass/volume)Ordered By: Qamar Smith on 09-12-2024 Creatinine [Mass/Vol] 0.66 mg/dL Low 0.70-1.[address] [facility] Serum glucose measurement (m ass/volume)Ordered By: Qamar Smith on 09-12-2024 Glucose [Mass/Vol] 127 mg/dL High 70-99 [facility] Serum or plasma calcium renetta urement (mass/volume)Ordered By: Qamar Smith on 09-12-2024 Calcium [Mass/Vol] 8.9 mg/dL 7.6-11.0 [facility] Serum or plasma urea nitroge n measurement (mass/volume)Ordered By: Qamar Smith on 09-12-2024 Urea nitrogen [Mass/Vol] 30 mg/dL High 4-19 [facility] Sodium levelOrdered By: Qamar Smith on 09-12-2024 Sodium [Moles/Vol] 139 mmol/L 133-145 [facility] White blood cell (WBC) count Ordered By: Qamar Smith on 06-19-2025 WBC (Bld) [#/Vol] 13.5 10*3/uL High 4.4-11.0 [facility] Basic Metabolic Profile (BMP )on 09-05-2024 BUN/CRE 44.4 RATIO High 10-20 [facility] Comment on above: Performed By: #### L 9100.0200 #### [facility] [address] [place], [address] Calcium [Mass/Vol] 9.1 mg/dL Normal 7.6-11.0 [facility] Comment on above: Performed By: #### L 91.0200 #### [facility] [address] [place], [address] Chloride [Moles/Vol] 102 mmol/L Normal 98-108 [facility] Comment on above: Performed By: #### L 91.0200 #### [facility] [address] [place], [address] CO2 [Moles/Vol] 24.8 mmol/L Normal 21.0-32.0 [facility] Comment on above: Performed By: #### L 9100.0200 #### [facility] [address] [place], [address] Creatinine [Mass/Vol] 0.52 mg/dL Low 0.70-1.[address] [facility] Comment on above: Performed By: #### L 91.0200 #### [facility] [address] [place], [address] ECRCL 45.33 ml/min Low 50-250 [facility] Comment on above: Performed By: #### L 91.0200 #### [facility] [address] [place], [address] GAP 13 Normal 5-15 [facility] Comment on above: Performed By: #### L 9099.0200 #### [facility] [address] [place], [address] GFR/1.73 sq M.predicted among non-blacks MDRD (S/P/Bld) [Vol rate/Area] 103 mL/min/{1.73_m2} Normal >60 [facility] Comment on above: Result Comment: mL/m in/1.73m2 CKD-EPI Creatinine Equation (2020) Performed By: #### L 9100.0200 #### [facility] [address] [place], [address] Glucose [Mass/Vol] 88 mg/dL Normal 70-99 [facility] Comment on above: Performed By: #### L 9100.0200 #### [facility] [address] [place], [address] Potassium [Moles/Vol] 4.1 mmol/L Normal 3.3-5.[address] [facility] Comment on above: Performed By: #### L 9100.0200 #### [facility] [address] [place], [address] Sodium [Moles/Vol] 139 mmol/L Normal 133-145 [facility] Comment on above: Performed By: #### L 9100.0200 #### [facility] [address] [place], [address] Urea nitrogen [Mass/Vol] 23 mg/dL High 4-19 [facility] Comment on above: Performed By: #### L 9100.0200 #### [facility] [address] [place], [address] CBC W/Diff, Automatedon 08-25-2024 Absolute Lymph 1.63 X10 3/uL Normal 0.83-4.51 [facility] Comment on above: Performed By: #### L 9100.0200 #### [facility] [address] [place], [address] Absolute Neut 5.9 X10 3/uL Normal 2.0-7.7 [facility] Comment on above: Performed By: #### L 9100.0200 #### [facility] [address] [place], [address] Basophils/100 WBC (Bld) 1.2 % High 0-1 [facility] Comment on above: Performed By: #### L 91.0200 #### [facility] [address] [place], [address] Eosinophils/100 WBC (Bld) 7.5 % High 0-5 [facility] Comment on above: Performed By: #### L 91.0200 #### [facility] [address] [place], [address] Erythrocyte distribution width (RBC) [Ratio] 14.6 % Normal 11.6-14.6 [facility] Comment on above: Performed By: #### L 9099.0200 #### [facility] [address] [place], [address] Hematocrit (Bld) [Volume fraction] 33.9 % Low 37-47 [facility] Comment on above: Performed By: #### L 91.0200 #### [facility] [address] [place], [address] Hemoglobin (Bld) [Mass/Vol] 11.3 g/dL Low 12.0-15.0 [facility] Comment on above: Performed By: #### L 91.0200 #### [facility] [address] [place], [address] IG% 1.100 High 0.0-0.9 [facility] Comment on above: Result Comment: IG% - Immature Granulocytes (promyelocytes, myelocytes and metamyelocytes) > 1% indicates that a LEFT SHIFT is Present. Performed By: #### L 91.0200 #### [facility] [address] [place], [address] Lymphocytes/100 WBC (Bld) 17.4 % Low 19-41 [facility] Comment on above: Performed By: #### L 9100.0200 #### [facility] [address] [place], [address] MCH (RBC) [Entitic mass] 31.9 pg Normal 27.0-32.0 [facility] Comment on above: Performed By: #### L 9100.0200 #### [facility] [address] [place], [address] MCHC (RBC) [Mass/Vol] 33.3 g/dL Normal 32-[address] [facility] Comment on above: Performed By: #### L 9100.0200 #### [facility] [address] [place], [address] MCV (RBC) [Entitic vol] 95.8 fL Normal 81-99 [facility] Comment on above: Performed By: #### L 9100.0200 #### [facility] [address] [place], [address] Monocytes/100 WBC (Bld) 10.3 % High 0-10 [facility] Comment on above: Performed By: #### L 9100.0200 #### [facility] [address] [place], [address] Neutrophils/100 WBC (Bld) 62.5 % Normal 47-70 [facility] Comment on above: Performed By: #### L 9100.0200 #### [facility] [address] [place], [address] Nucleated RBC (Bld) [#/Vol] 0 10*3/uL Normal 0-5 [facility] Comment on above: Performed By: #### L 9100.0200 #### [facility] [address] [place], [address] Platelet mean volume (Bld) [Entitic vol] 9.2 fL Normal 6.2-12.0 [facility] Comment on above: Performed By: #### L 9100.0200 #### [facility] [address] [place], [address] Platelets (Bld) [#/Vol] 363 10*3/uL Normal 150-450 [facility] Comment on above: Performed By: #### L 9100.0200 #### [facility] [address] [place], [address] RBC (Bld) [#/Vol] 3.54 10*6/uL Low 4.2-5.4 [facility] Comment on above: Performed By: #### L 9100.0200 #### [facility] [address] [place], [address] RDW SD 51.2 fl High 35.1-43.9 [facility] Comment on above: Performed By: #### L 9100.0200 #### [facility] [address] [place], [address] WBC (Bld) [#/Vol] 9.4 10*3/uL Normal 4.4-11.0 [facility] Comment on above: Performed By: #### L 9100.0200 #### [facility] [address] [place], [address] CASE MANAGEMon 09-04-2024 CASE MANAGEM Normal [facility] CBC panel Auto (Bld)on 09-04 Erythrocyte distribution width (RBC) [Ratio] 14.6 % Normal 11.5-15.0 [facility] Comment on above: Order Comment: Speci men Type: BLOOD SPECIMENOrdering Facility: [facility] Address: [address] [place] [address] Performed By: #### 5 8410-2 ####[facility]ATORYCLIA [id number] [address] [place] Hematocrit (Bld) [Volume fraction] 34.1 % Low 36.0-46.0 [facility] Comment on above: Order Comment: Speci men Type: BLOOD SPECIMENOrdering Facility: [facility] Address: [address] [place] [address] Performed By: #### 5 8410-2 ####[facility]ORATORYCLIA [id number] [place] [address] [place] Hemoglobin (Bld) [Mass/Vol] 11.1 g/dL Low 11.5-15.5 [facility] Comment on above: Order Comment: Speci men Type: BLOOD SPECIMENOrdering Facility: [facility] Address: [address] [place] [address] Performed By: #### 5 8410-2 ####[facility] LABORATORYCLIA [id number] [address] [place] MCH (RBC) [Entitic mass] 30.9 pg Normal 26.0-34.0 [facility] Comment on above: Order Comment: Speci men Type: BLOOD SPECIMENOrdering Facility: [facility] Address: [address] [place] [address] Performed By: #### 5 8410-2 ####[facility]ORATORYCLIA [id number] [address] [place] MCHC (RBC) [Mass/Vol] 32.6 g/dL Normal 30.5-36.0 [facility] Comment on above: Order Comment: Speci men Type: BLOOD SPECIMENOrdering Facility: [facility] Address: [address] [place] [address] Performed By: #### 5 8410-2 ####[facility] LABORATORYCLIA [id number] [place] [id number] [place] MCV (RBC) [Entitic vol] 95.0 fL Normal 80.0-100.0 [facility] Comment on above: Order Comment: Speci men Type: BLOOD SPECIMENOrdering Facility: [facility] Address: [address] [place] [address] Performed By: #### 5 8410-2 ####[facility]ORATORYCLIA [id number] [place] [id number] [place] Nucleated RBC (Bld) [#/Vol] 10*3/uL Normal <0.01 [facility] Comment on above: Order Comment: Speci men Type: BLOOD SPECIMENOrdering Facility: [facility] Address: [address] [place] [address] Performed By: #### 5 8410-2 ####[facility]ORATORYCLIA [id number] [place] [id number] [place] Platelet mean volume (Bld) [Entitic vol] 9.0 fL Normal 9.0-12.7 [facility] Comment on above: Order Comment: Speci men Type: BLOOD SPECIMENOrdering Facility: [facility] Address: [address] [place] [address] Performed By: #### 5 8410-2 ####[facility] LABORATORYCLIA [id number] [place] [address] [place] Platelets (Bld) [#/Vol] 347 10*3/uL Normal 150-400 [facility] Comment on above: Order Comment: Speci men Type: BLOOD SPECIMENOrdering Facility: [facility] Address: [address] [place] [address] Performed By: #### 5 8410-2 ####[facility]ORATORYCLIA [id number] [place] [id number] [place] RBC (Bld) [#/Vol] 3.59 10*6/uL Low 3.90-5.20 [facility] Comment on above: Order Comment: Speci men Type: BLOOD SPECIMENOrdering Facility: [facility] Address: [address] [place] [address] Performed By: #### 5 8410-2 ####[facility] LABORATORYCLIA [id number] [place] [id number] [place] WBC (Bld) [#/Vol] 11.16 10*3/uL High 3.70-11.00 [facility] Comment on above: Order Comment: Speci men Type: BLOOD SPECIMENOrdering Facility: [facility] Address: [address] [place] [address] Performed By: #### 5 8410-2 ####[facility] LABORATORYCLIA [id number] [place] [id number] [place] CNDSon 09-04-2024 CNDS Normal [facility] CNPNon 09-04-2024 CNPN Normal [facility] Magnesium SerPl-mCncon 09-04 Magnesium [Mass/Vol] 2.0 mg/dL Normal 1.7-2.3 [facility] Comment on above: Order Comment: Speci men Type: BLOOD SPECIMENOrdering Facility: [facility] Address: [address] [place] [address] Performed By: #### 1 9123-9, 08938-6 ####[facility] LABORATORYCLIA [id number] [place] [id number] [place] NURSING PROGon 09-04-2024 NURSING PROG Normal [facility] NURSING PROG [facility] Renal function 2000 panelon 09-04-2024 Albumin [Mass/Vol] 3.5 g/dL Low 3.9-4.9 [facility] Comment on above: Order Comment: Speci men Type: BLOOD SPECIMENOrdering Facility: [facility] Address: [address] [place] [address] Performed By: #### 1 9123-9, 84405-0 ####EM[facility] LABORATORYCLIA [id number] [place] [id number] [place] Anion gap [Moles/Vol] 9 mmol/L Normal 8-15 [facility] Comment on above: Order Comment: Speci men Type: BLOOD SPECIMENOrdering Facility: [facility] Address: [address] [place] [address] Performed By: #### 1 9123-9, 14346-2 ####[facility] LABORATORYCLIA [id number] [place] [id number] [place] Calcium [Mass/Vol] 8.5 mg/dL Normal 8.5-10.2 [facility] Comment on above: Order Comment: Speci men Type: BLOOD SPECIMENOrdering Facility: [facility] Address: [address] [place] [address] Performed By: #### 1 9123-9, 58072-9 ####[facility] LABORATORYCLIA [id number] [place] [id number] [place] Chloride [Moles/Vol] 106 mmol/L Normal 98-107 [facility] Comment on above: Order Comment: Speci men Type: BLOOD SPECIMENOrdering Facility: [facility] Address: [address] [place] [address] Performed By: #### 1 9123-9, 23408-4 ####[facility] LABORATORYCLIA [id number] [place] [id number] [place] CO2 [Moles/Vol] 24 mmol/L Normal 22-30 [facility] Comment on above: Order Comment: Speci men Type: BLOOD SPECIMENOrdering Facility: [facility] Address: [address] [place] [address] Performed By: #### 1 9123-9, 29552-4 ####[facility] LABORATORYCLIA [id number] [place] [id number] [place] Creatinine [Mass/Vol] 0.45 mg/dL Low 0.58-0.96 [facility] Comment on above: Order Comment: Speci men Type: BLOOD SPECIMENOrdering Facility: [facility] Address: [address] [place] [address] Performed By: #### 1 9123-9, 42651-2 ####[facility] LABORATORYCLIA [id number] [place] [address] [place] Creatinine and Glomerular filtration rate.predicted panel (S/P/Bld) 107 mL/min/1.73m??? Normal >=60 [facility] Comment on above: Order Comment: Speci men Type: BLOOD SPECIMENOrdering Facility: [facility] Address: [address] [place] [address] Result Comment: Sana mated Glomerular Filtration Rate (eGFR) is calculated using the 2020 CKD-EPI creatinine equation. This equation utilizes serum creatinine, sex, and age as parameters. The creatinine assay has traceable calibration to isotope dilution-mass spectrometry. Refer to KDIGO guidelines for clinical interpretation. In patients with unstable renal function, e.g. those with acute kidney injury, the eGFR may not accurately reflect actual GFR. Performed By: #### 1 9123-9, 02984-9 ####EMMANUEL LABORATORYCLIA [id number] [place] [address] [place] Glucose [Mass/Vol] 95 mg/dL Normal 74-99 [facility] Comment on above: Order Comment: Umesh baugh Type: BLOOD SPECIMENOrdering Facility: [facility] Address: [address] [id number] Result Comment: The [place] Diabetes Association (ADA) provides guidance for cutoff values for fasting glucose and random glucose. The ADA defines fasting as no caloric intake for at least 8 hours. Fasting plasma glucose results between 100 to 125 mg/dL indicate increased risk for diabetes (prediabetes).Fasting plasma glucose results greater than or equal to 126 mg/dL meet the criteria for diagnosis of diabetes. In the absence of unequivocal hyperglycemia, results should be confirmed by repeat testing. In a patient with classic symptoms of hyperglycemia or hyperglycemic crisis, random plasma glucose results greater than or equal to 200 mg/dL meet the criteria for diagnosis of diabetes.Reference: Standards of Medical Care in Diabetes 2016, [place] [employer]. Diabetes Care. 2016.39(Suppl 1). Performed By: #### 1 9123-9, 47364-0 ####EMMANUEL LABORATORYCLIA [id number] [place] [address] [place] Phosphate [Mass/Vol] 4.5 mg/dL Normal 2.7-4.8 [facility] Comment on above: Order Comment: Umesh baugh Type: BLOOD SPECIMENOrdering Facility: [facility] Address: [address] [place] [address] Performed By: #### 1 9123-9, 72597-0 ####EMMANULE LABORATORYCLIA [id number] [place] [address] [place] Potassium [Moles/Vol] 4.4 mmol/L Normal 3.7-5.1 [facility] Comment on above: Order Comment: Speci men Type: BLOOD SPECIMENOrdering Facility: [facility] Address: [address] [place] [address] Performed By: #### 1 9123-9, 53724-8 ####EMMANUEL LABORATORYCLIA [id number] [place] [id number] [place] Sodium [Moles/Vol] 139 mmol/L Normal 136-144 [facility] Comment on above: Order Comment: Speci men Type: BLOOD SPECIMENOrdering Facility: [facility] Address: [address] [place] [address] Performed By: #### 1 9123-9, 15828-9 ####EMMANUEL LABORATORYCLIA [id number] [place] [address] [place] Urea nitrogen [Mass/Vol] 17 mg/dL Normal 7-21 [facility] Comment on above: Order Comment: Speci men Type: BLOOD SPECIMENOrdering Facility: [facility] Address: [address] [place] [address] Performed By: #### 1 9123-9, 97679-0 ####[facility] LABORATORYCLIA [id number] [place] [id number] [place] THERAPY NTon 09-04-2024 THERAPY NT Normal [facility] CBC panel Auto (Bld)on 09-03 Erythrocyte distribution width (RBC) [Ratio] 15.2 % High 11.5-15.0 [facility] Comment on above: Order Comment: Speci men Type: BLOOD SPECIMENOrdering Facility: [facility] Address: [address] [place] [address] Performed By: #### 5 8410-2 ####EDEN LABORATORYCLIA [id number] [place] [id number] [place] Hematocrit (Bld) [Volume fraction] 32.1 % Low 36.0-46.0 [facility] Comment on above: Order Comment: Speci men Type: BLOOD SPECIMENOrdering Facility: [facility] Address: [address] [place] [address] Performed By: #### 5 8410-2 ####EMMANUEL LABORATORYCLIA [id number] [address] [place] Hemoglobin (Bld) [Mass/Vol] 10.8 g/dL Low 11.5-15.5 [facility] Comment on above: Order Comment: Speci men Type: BLOOD SPECIMENOrdering Facility: [facility] Address: [address] [place] [address] Performed By: #### 5 8410-2 ####EMMANUEL LABORATORYCLIA [id number] [address] MCH (RBC) [Entitic mass] 31.9 pg Normal 26.0-34.0 [facility] Comment on above: Order Comment: Speci men Type: BLOOD SPECIMENOrdering Facility: [facility] Address: [address] [place] [address] Performed By: #### 5 8410-2 ####EMMANUEL LABORATORYCLIA [id number] [address] [place] MCHC (RBC) [Mass/Vol] 33.6 g/dL Normal 30.5-36.0 [facility] Comment on above: Order Comment: Speci men Type: BLOOD SPECIMENOrdering Facility: [facility] Address: [address] [place] [address] Performed By: #### 5 8410-2 ####EMMANUEL LABORATORYCLIA [id number] [address] [place] MCV (RBC) [Entitic vol] 94.7 fL Normal 80.0-100.0 [facility] Comment on above: Order Comment: Speci men Type: BLOOD SPECIMENOrdering Facility: [facility] Address: [address] [place] [address] Performed By: #### 5 8410-2 ####EMMANUEL LABORATORYCLIA [id number] [address] Nucleated RBC (Bld) [#/Vol] 10*3/uL Normal <0.01 [facility] Comment on above: Order Comment: Speci men Type: BLOOD SPECIMENOrdering Facility: [facility] Address: [address] [place] [address] Performed By: #### 5 8410-2 ####EDEN LABORATORYCLIA [id number] [place] [id number] [place] Platelet mean volume (Bld) [Entitic vol] 9.3 fL Normal 9.0-12.7 [facility] Comment on above: Order Comment: Speci men Type: BLOOD SPECIMENOrdering Facility: [facility] Address: [address] [place] [address] Performed By: #### 5 8410-2 ####EDEN LABORATORYCLIA [id number] [place] [id number] [place] Platelets (Bld) [#/Vol] 332 10*3/uL Normal 150-400 [facility] Comment on above: Order Comment: Speci men Type: BLOOD SPECIMENOrdering Facility: [facility] Address: [address] [place] [address] Performed By: #### 5 8410-2 ####EDEN LABORATORYCLIA [id number] [place] [id number] [place] RBC (Bld) [#/Vol] 3.39 10*6/uL Low 3.90-5.20 [facility] Comment on above: Order Comment: Speci men Type: BLOOD SPECIMENOrdering Facility: [facility] Address: [address] [place] [address] Performed By: #### 5 8410-2 ####EDEN LABORATORYCLIA [id number] [place] [id number] [place] WBC (Bld) [#/Vol] 10.64 10*3/uL Normal 3.70-11.00 [facility] Comment on above: Order Comment: Speci men Type: BLOOD SPECIMENOrdering Facility: [facility] Address: [address] [place] [address] Performed By: #### 5 8410-2 ####EDEN LABORATORYCLIA [id number] [place] [id number] [place] CNPNon 09-03-2024 CNPN Normal [facility] SerPl-mCncon 09-03 Magnesium [Mass/Vol] 2.1 mg/dL Normal 1.7-2.3 [facility] Comment on above: Order Comment: Speci men Type: BLOOD SPECIMENOrdering Facility: [facility] Address: [address] [place], [place] [address] Performed By: #### 2 4362-6, 43990-2, 8 ####EMMANUEL LABORATORYCLIA [id number] [place] [id number] [place] NURSING PROGon 09-03-2024 NURSING PROG Normal [facility] NURSING PROG Normal [facility] NUTRITIONon 09-03-2024 NUTRITION Normal [facility] Renal function 2000 panelon 09-03-2024 Albumin [Mass/Vol] 3.3 g/dL Low 3.9-4.9 [facility] Comment on above: Order Comment: Speci men Type: BLOOD SPECIMENOrdering Facility: [facility] Address: [address] [place] [address] Performed By: #### 2 4362-6, , 2570-10 ####[facility] LABORATORYCLIA [id number] [place] [id number] [place] Anion gap [Moles/Vol] 11 mmol/L Normal 8-15 [facility] Comment on above: Order Comment: Speci men Type: BLOOD SPECIMENOrdering Facility: [facility] Address: [address] [place], [place] [address] Performed By: #### 2 4362-6, , 8 ####[facility] LABORATORYCLIA [id number] [place] [id number] [place] Calcium [Mass/Vol] 8.8 mg/dL Normal 8.5-10.2 [facility] Comment on above: Order Comment: Speci men Type: BLOOD SPECIMENOrdering Facility: [facility] Address: [address] [place] [address] Performed By: #### 2 4362-6, , 8 ####EMMANUEL LABORATORYCLIA [id number] [place] [address] [place] Chloride [Moles/Vol] 102 mmol/L Normal 98-107 [facility] Comment on above: Order Comment: Speci men Type: BLOOD SPECIMENOrdering Facility: [facility] Address: [address] [place] [address] Performed By: #### 2 4362-6, 89417-6, 2570-8 ####EDEN LABORATORYCLIA [id number] [place] [id number] [place] CO2 [Moles/Vol] 26 mmol/L Normal 22-30 [facility] Comment on above: Order Comment: Speci men Type: BLOOD SPECIMENOrdering Facility: [facility] Address: [address] [place] [address] Performed By: #### 2 4362-6, 36248-8, 8 ####EDEN LABORATORYCLIA [id number] [place] [id number] [place] Creatinine [Mass/Vol] 0.40 mg/dL Low 0.58-0.96 [facility] Comment on above: Order Comment: Speci men Type: BLOOD SPECIMENOrdering Facility: [facility] Address: [address] [place] [address] Performed By: #### 2 4362-6, 24243-6, 8 ####EDEN LABORATORYCLIA [id number] [place] [id number] [place] [facility] Creatinine and Glomerular filtration rate.predicted panel (S/P/Bld) 110 mL/min/1.73m??? Normal >=60 [facility] Comment on above: Order Comment: Speci men Type: BLOOD SPECIMENOrdering Facility: [facility] Address: [address] [place] [address] Result Comment: Sana mated Glomerular Filtration Rate (eGFR) is calculated using the 2020 CKD-EPI creatinine equation. This equation utilizes serum creatinine, sex, and age as parameters. The creatinine assay has traceable calibration to isotope dilution-mass spectrometry. Refer to KDIGO guidelines for clinical interpretation. In patients with unstable renal function, e.g. those with acute kidney injury, the eGFR may not accurately reflect actual GFR. Performed By: #### 2 4362-6, 70877-4, 2570-8 ####EMMANUEL LABORATORYCLIA [id number] [place] [address] [place] Glucose [Mass/Vol] 125 mg/dL High 74-99 [facility] Comment on above: Order Comment: Speci men Type: BLOOD SPECIMENOrdering Facility: [facility] Address: [address] [place] [address] Result Comment: The [place] Diabetes Association (ADA) provides guidance for cutoff values for fasting glucose and random glucose. The ADA defines fasting as no caloric intake for at least 8 hours. Fasting plasma glucose results between 100 to 125 mg/dL indicate increased risk for diabetes (prediabetes).Fasting plasma glucose results greater than or equal to 126 mg/dL meet the criteria for diagnosis of diabetes. In the absence of unequivocal hyperglycemia, results should be confirmed by repeat testing. In a patient with classic symptoms of hyperglycemia or hyperglycemic crisis, random plasma glucose results greater than or equal to 200 mg/dL meet the criteria for diagnosis of diabetes.Reference: Standards of Medical Care in Diabetes 2016, [place] [employer]. Diabetes Care. 2016.39(Suppl 1). Performed By: #### 2 4362-6, 30814-2, 2570-10 ####EMMANUEL LABORATORYCLIA [id number] [place] [address] [place] Phosphate [Mass/Vol] 4.0 mg/dL Normal 2.7-4.8 [facility] Comment on above: Order Comment: Umesh baugh Type: BLOOD SPECIMENOrdering Facility: [facility] Address: [address] [place] [address] Performed By: #### 2 4362-6, 48983-0, 8 ####EMMANUEL LABORATORYCLIA [id number] [place] [address] [place] Potassium [Moles/Vol] 4.6 mmol/L Normal 3.7-5.1 [facility] Comment on above: Order Comment: Umesh men Type: BLOOD SPECIMENOrdering Facility: [facility] Address: [address] [place], [place] [address] Performed By: #### 2 4362-6, 07328-5, 2570-10 ####EDEN LABORATORYCLIA [id number] [place] [address] [place] Sodium [Moles/Vol] 139 mmol/L Normal 136-144 [facility] Comment on above: Order Comment: Speci men Type: BLOOD SPECIMENOrdering Facility: [facility] Address: [address] [place] [address] Performed By: #### 2 4362-6, , 2570-10 ####EDEN LABORATORYCLIA [id number] [place] [address] [place] Urea nitrogen [Mass/Vol] 13 mg/dL Normal 7-21 [facility] Comment on above: Order Comment: Speci men Type: BLOOD SPECIMENOrdering Facility: [facility] Address: [address] [place] [address] Performed By: #### 2 4362-6, , 2570-10 ####EDEN LABORATORYCLIA [id number] [place] [address] [facility] THERAPY NTon 09-03-2024 THERAPY NT Normal [facility] Trigl SerPl-mCncon Triglyceride [Mass/Vol] 145 mg/dL Normal <150 [facility] Comment on above: Order Comment: Speci men Type: BLOOD SPECIMENOrdering Facility: [facility] Address: [address] [place] [address] Result Comment: <150 mg/dL, Normal 150-199 mg/dL, Borderline high 200-499 mg/dL, High>499 mg/dL, Very highReference:1. National Cholesterol Education Program ATP III Guideline At-A-Glance Quick Desk Reference: National Heart, Lung, and Blood [place]. National Institutes of Health. 2001: NIH Publication No. 01-3305. Performed By: #### 2 4362-6, 08207-5, 2570-10 ####EDEN LABORATORYCLIA [id number] [place] [address] [place] Triglyceride [Mass/Vol]on FASTING TIME 5 hrs Normal [facility] Comment on above: Order Comment: Speci men Type: BLOOD SPECIMENOrdering Facility: [facility] Address: [facility] [place] [id number] Performed By: #### 2 4362-6, 08086-9, 2571-8 ####EDEN LABORATORYCLIA [id number] [place] [address] [place] ALLIED HEALTHon 09-02-2024 ALLIED HEALTH Normal [facility] Basic metabolic 2000 panelon 09-02-2024 Anion gap [Moles/Vol] 12 mmol/L Normal 8-15 [facility] Comment on above: Order Comment: Speci men Type: BLOOD SPECIMENOrdering Facility: [facility] Address: [facility] [place] [address] Performed By: #### 2 4325-3, , 1987-07, ####EDEN LABORATORYCLIA [id number] [place] [address] [place] Calcium [Mass/Vol] 8.3 mg/dL Low 8.5-10.2 [facility] Comment on above: Order Comment: Speci men Type: BLOOD SPECIMENOrdering Facility: [facility] Address: [facility] [place] [address] Performed By: #### 2 4325-3, 81266-3, 1987-07, ####EDEN LABORATORYCLIA [id number] [place] [address] [place] Chloride [Moles/Vol] 98 mmol/L Normal 98-107 [facility] Comment on above: Order Comment: Speci men Type: BLOOD SPECIMENOrdering Facility: [facility] Address: [facility] [place] [address] Performed By: #### 2 4325-3, 67708-2, 1987-07, ####EDEN LABORATORYCLIA [id number] [place] [address] [place] CO2 [Moles/Vol] 28 mmol/L Normal 22-30 [facility] Comment on above: Order Comment: Speci men Type: BLOOD SPECIMENOrdering Facility: [facility] Address: [address] [place] [address] Performed By: #### 2 4325-3, 31595-6, ####[facility] LABORATORYCLIA [id number] [place] [address] [place] Creatinine [Mass/Vol] 0.37 mg/dL Low 0.58-0.96 [facility] Comment on above: Order Comment: [place] men Type: BLOOD SPECIMENOrdering Facility: [facility] Address: [address] [place] [address] Performed By: #### 2 4325-3, , ####[facility] LABORATORYCLIA [id number] [place] [id number] [place] Creatinine and Glomerular filtration rate.predicted panel (S/P/Bld) 112 mL/min/1.73m??? Normal >=60 [facility] Comment on above: Order Comment: [facility] Type: BLOOD SPECIMENOrdering Facility: [facility] Address: [address] [place] [address] Result Comment: Sana mated Glomerular Filtration Rate (eGFR) is calculated using the 2020 CKD-EPI creatinine equation. This equation utilizes serum creatinine, sex, and age as parameters. The creatinine assay has traceable calibration to isotope dilution-mass spectrometry. Refer to KDIGO guidelines for clinical interpretation. In patients with unstable renal function, e.g. those with acute kidney injury, the eGFR may not accurately reflect actual GFR. Performed By: #### 2 4325-3, , ####[facility] LABORATORYCLIA [id number] [place] [address] [place] Glucose [Mass/Vol] 108 mg/dL High 74-99 [facility] Comment on above: Order Comment: Umesh baugh Type: BLOOD SPECIMENOrdering Facility: [facility] Address: [address] [place] [address] Result Comment: The [place] Diabetes Association (ADA) provides guidance for cutoff values for fasting glucose and random glucose. The ADA defines fasting as no caloric intake for at least 8 hours. Fasting plasma glucose results between 100 to 125 mg/dL indicate increased risk for diabetes (prediabetes).Fasting plasma glucose results greater than or equal to 126 mg/dL meet the criteria for diagnosis of diabetes. In the absence of unequivocal hyperglycemia, results should be confirmed by repeat testing. In a patient with classic symptoms of hyperglycemia or hyperglycemic crisis, random plasma glucose results greater than or equal to 200 mg/dL meet the criteria for diagnosis of diabetes.Reference: Standards of Medical Care in Diabetes 2016, [place] [employer]. Diabetes Care. 2016.39(Suppl 1). Performed By: #### 2 4325-3, 37974-6, ####EDEN LABORATORYCLIA [id number] [place] [address] [place] Potassium [Moles/Vol] 3.1 mmol/L Low 3.7-5.1 [facility] Comment on above: Order Comment: Abdouli men Type: BLOOD SPECIMENOrdering Facility: [facility] Address: [address] [place] [address] Performed By: #### 2 4325-3, , ####EDEN LABORATORYCLIA [id number] [place] [id number] [place] Sodium [Moles/Vol] 138 mmol/L Normal 136-144 [facility] Comment on above: Order Comment: Speci men Type: BLOOD SPECIMENOrdering Facility: [facility] Address: [address] [address] Performed By: #### 2 4324-3, , ####EDEN LABORATORYCLIA [id number] [place] [address] [place] Urea nitrogen [Mass/Vol] 13 mg/dL Normal 7-21 [facility] Comment on above: Order Comment: Speci men Type: BLOOD SPECIMENOrdering Facility: [facility] Address: [address] [place] [address] Performed By: #### 2 5-3, , ####EDEN LABORATORYCLIA [id number] [place] [id number] [place] CASE MANAGEMon 09-02-2024 CASE MANAGEM Normal [facility] CBC panel Auto (Bld)on 09-02 Erythrocyte distribution width (RBC) [Ratio] 15.8 % High 11.5-15.0 [facility] Comment on above: Order Comment: Speci men Type: BLOOD SPECIMENOrdering Facility: [facility] Address: [address] [place] [address] Performed By: #### 5 8410-2 ####EDEN LABORATORYCLIA [id number] [address] Hematocrit (Bld) [Volume fraction] 30.7 % Low 36.0-46.0 [facility] Comment on above: Order Comment: Speci men Type: BLOOD SPECIMENOrdering Facility: [facility] Address: [address] [place] [address] Performed By: #### 5 8410-2 ####EDEN LABORATORYCLIA [id number] [address] [place] Hemoglobin (Bld) [Mass/Vol] 10.6 g/dL Low 11.5-15.5 [facility] Comment on above: Order Comment: Speci men Type: BLOOD SPECIMENOrdering Facility: [facility] Address: [address] [place] [address] Performed By: #### 5 8410-2 ####EDEN LABORATORYCLIA [id number] [place] [id number] [place] MCH (RBC) [Entitic mass] 32.8 pg Normal 26.0-34.0 [facility] Comment on above: Order Comment: Speci men Type: BLOOD SPECIMENOrdering Facility: [facility] Address: [address] [place] [address] Performed By: #### 5 8410-2 ####EDEN LABORATORYCLIA [id number] [address] [place] MCHC (RBC) [Mass/Vol] 34.5 g/dL Normal 30.5-36.0 [facility] Comment on above: Order Comment: Speci men Type: BLOOD SPECIMENOrdering Facility: [facility] Address: [address] [place] [address] Performed By: #### 5 8410-2 ####[facility] LABORATORYCLIA [id number] [place] [id number] [place] MCV (RBC) [Entitic vol] 95.0 fL Normal 80.0-100.0 [facility] Comment on above: Order Comment: Speci men Type: BLOOD SPECIMENOrdering Facility: [facility] Address: [address] [place] [address] Performed By: #### 5 8410-2 ####[facility] LABORATORYCLIA [id number] [address] Nucleated RBC (Bld) [#/Vol] 10*3/uL Normal <0.01 [facility] Comment on above: Order Comment: Speci men Type: BLOOD SPECIMENOrdering Facility: [facility] Address: [address] [place] [address] Performed By: #### 5 8410-2 ####[facility] LABORATORYCLIA [id number] [address] [place] Platelet mean volume (Bld) [Entitic vol] 9.9 fL Normal 9.0-12.7 [facility] Comment on above: Order Comment: Speci men Type: BLOOD SPECIMENOrdering Facility: [facility] Address: [address] [place] [address] Performed By: #### 5 8410-2 ####[facility] LABORATORYCLIA [id number] [address] [place] Platelets (Bld) [#/Vol] 345 10*3/uL Normal 150-400 [facility] Comment on above: Order Comment: Speci men Type: BLOOD SPECIMENOrdering Facility: [facility] Address: [address] [place] [address] Performed By: #### 5 8410-2 ####[facility] LABORATORYCLIA [id number] [place] [address] [place] RBC (Bld) [#/Vol] 3.23 10*6/uL Low 3.90-5.20 [facility] Comment on above: Order Comment: Speci men Type: BLOOD SPECIMENOrdering Facility: [facility] Address: [address] [place] [address] Performed By: #### 5 8410-2 ####EDEN LABORATORYCLIA [id number] [place] [id number] [place] WBC (Bld) [#/Vol] 9.39 10*3/uL Normal 3.70-11.00 [facility] Comment on above: Order Comment: Speci men Type: BLOOD SPECIMENOrdering Facility: [facility] Address: [address] [place] [address] Performed By: #### 5 8410-2 ####EDEN LABORATORYCLIA [id number] [place] [id number] [place] CRP SerPl-mCncon 09-02-2024 CRP [Mass/Vol] 1.9 mg/dL High <0.9 [facility] Comment on above: Order Comment: Speci men Type: BLOOD SPECIMENOrdering Facility: [facility] Address: [address] [place] [address] Performed By: #### 2 4325-3, 95430-9, ####[facility] LABORATORYCLIA [id number] [place] [id number] [place] Hepatic function 2000 panelo n 09-02-2024 Albumin [Mass/Vol] 2.9 g/dL Low 3.9-4.9 [facility] Comment on above: Order Comment: Speci men Type: BLOOD SPECIMENOrdering Facility: [facility] Address: [address] [place] [address] Performed By: #### 2 4325-3, 35276-1, ####[facility] LABORATORYCLIA [id number] [place] [id number] [place] ALP [Catalytic activity/Vol] 55 U/L Normal 34-123 [facility] Comment on above: Order Comment: Speci men Type: BLOOD SPECIMENOrdering Facility: [facility] Address: [address] [place] [address] Performed By: #### 2 5-3, 03639-1, 1987-07, ####EMMANUEL LABORATORYCLIA [id number] [place] [address] [place] ALT [Catalytic activity/Vol] 9 U/L Normal 7-38 [facility] Comment on above: Order Comment: Speci men Type: BLOOD SPECIMENOrdering Facility: [facility] Address: [address] [place] [address] Performed By: #### 2 4324-3, , 1987-07, ####[facility] LABORATORYCLIA [id number] [place] [id number] [place] AST [Catalytic activity/Vol] 16 U/L Normal 13-35 [facility] Comment on above: Order Comment: Speci men Type: BLOOD SPECIMENOrdering Facility: [facility] Address: [address] [place] [address] Performed By: #### 2 4324-3, , 1987-07, ####EMMANUEL LABORATORYCLIA [id number] [place] [id number] [place] Bilirubin [Mass/Vol] 0.4 mg/dL Normal 0.2-1.3 [facility] Comment on above: Order Comment: Speci men Type: BLOOD SPECIMENOrdering Facility: [facility] Address: [address] [place] [address] Performed By: #### 2 5-3, 53404-1, 1987-07, ####[facility] LABORATORYCLIA [id number] [place] [id number] [place] Bilirubin.conjugated [Mass/Vol] 0.1 mg/dL Normal <0.3 [facility] Comment on above: Order Comment: Speci men Type: BLOOD SPECIMENOrdering Facility: [facility] Address: [address] [place] [address] Performed By: #### 2 4325-3, 31047-8, 1987-07, ####EMMANUEL LABORATORYCLIA [id number] [place] [id number] [place] Protein [Mass/Vol] 5.4 g/dL Low 6.3-8.0 [facility] Comment on above: Order Comment: Speci men Type: BLOOD SPECIMENOrdering Facility: [facility] Address: [address] [place], [place] [address] Performed By: #### 2 4325-3, 92311-4, 1987-07, ####[facility] LABORATORYCLIA [id number] [place] [id number] [place] Magnesium SerPl-ncon 09-02 Magnesium [Mass/Vol] 1.8 mg/dL Normal 1.7-2.3 [facility] Comment on above: Order Comment: Speci men Type: BLOOD SPECIMENOrdering Facility: [facility] Address: [address] [place], [place] [address] Performed By: #### 2 4325-3, 90302-4, 1987-07, ####[facility] LABORATORYCLIA [id number] [place] [id number] [place] NUTRITIONon 09-02-2024 NUTRITION Normal [facility] Phosphate SerPl-mCncon 09-02 Phosphate [Mass/Vol] 4.0 mg/dL Normal 2.7-4.8 [facility] Comment on above: Order Comment: Speci men Type: BLOOD SPECIMENOrdering Facility: [facility] Address: [address] [place] [address] Performed By: #### 2 777-1 ####[facility] LABORATORYCLIA [id number] [place] [id number] [place] THERAPY NTon 09-02-2024 THERAPY NT Normal [facility] THERAPY NT Normal [facility] XR ABDOMEN 1V SUPINEon 09-02 XR ABDOMEN 1V SUPINE Normal [facility] CBC panel Auto (Bld)on 09-01 Erythrocyte distribution width (RBC) [Ratio] 16.4 % High 11.5-15.0 [facility] Comment on above: Order Comment: Speci men Type: BLOOD SPECIMENOrdering Facility: [facility] Address: [address] [place] [address] Performed By: #### 5 8410-2 ####EMMANUEL LABORATORYCLIA [id number] [address] [place] Hematocrit (Bld) [Volume fraction] 32.8 % Low 36.0-46.0 [facility] Comment on above: Order Comment: Speci men Type: BLOOD SPECIMENOrdering Facility: [facility] Address: [address] [place] [address] Performed By: #### 5 8410-2 ####EMMANUEL LABORATORYCLIA [id number] [address] [place] Hemoglobin (Bld) [Mass/Vol] 11.3 g/dL Low 11.5-15.5 [facility] Comment on above: Order Comment: Speci men Type: BLOOD SPECIMENOrdering Facility: [facility] Address: [address] [place] [address] Performed By: #### 5 8410-2 ####[facility] LABORATORYCLIA [id number] [address] [place] MCH (RBC) [Entitic mass] 31.5 pg Normal 26.0-34.0 [facility] Comment on above: Order Comment: Speci men Type: BLOOD SPECIMENOrdering Facility: [facility] Address: [address] [place] [address] Performed By: #### 5 8410-2 ####EMMANUEL LABORATORYCLIA [id number] [place] [address] [place] MCHC (RBC) [Mass/Vol] 34.5 g/dL Normal 30.5-36.0 [facility] Comment on above: Order Comment: Speci men Type: BLOOD SPECIMENOrdering Facility: [facility] Address: [address] [place] [address] Performed By: #### 5 8410-2 ####EMMANUEL LABORATORYCLIA [id number] [place] [address] [place] MCV (RBC) [Entitic vol] 91.4 fL Normal 80.0-100.0 [facility] Comment on above: Order Comment: Speci men Type: BLOOD SPECIMENOrdering Facility: [facility] Address: [address] [place] [address] Performed By: #### 5 8410-2 ####EDEN LABORATORYCLIA [id number] [place] [id number] [place] Nucleated RBC (Bld) [#/Vol] 10*3/uL Normal <0.01 [facility] Comment on above: Order Comment: Speci men Type: BLOOD SPECIMENOrdering Facility: [facility] Address: [address] [place] [address] Performed By: #### 5 8410-2 ####ED[facility] LABORATORYCLIA [id number] [place] [address] [place] Platelet mean volume (Bld) [Entitic vol] 9.9 fL Normal 9.0-12.7 [facility] Comment on above: Order Comment: Speci men Type: BLOOD SPECIMENOrdering Facility: [facility] Address: [address] [place] [address] Performed By: #### 5 8410-2 ####[facility] LABORATORYCLIA [id number] [place] [address] [place] Platelets (Bld) [#/Vol] 346 10*3/uL Normal 150-400 [facility] Comment on above: Order Comment: Speci men Type: BLOOD SPECIMENOrdering Facility: [facility] Address: [address] [place] [address] Performed By: #### 5 8410-2 ####ED[facility] LABORATORYCLIA [id number] [place] [address] [place] RBC (Bld) [#/Vol] 3.59 10*6/uL Low 3.90-5.20 [facility] Comment on above: Order Comment: Speci men Type: BLOOD SPECIMENOrdering Facility: [facility] Address: [address] [place] [address] Performed By: #### 5 8410-2 ####ED[facility] LABORATORYCLIA [id number] [place] [address] [place] WBC (Bld) [#/Vol] 9.45 10*3/uL Normal 3.70-11.00 [facility] Comment on above: Order Comment: Speci men Type: BLOOD SPECIMENOrdering Facility: [facility] Address: [facility] [place] [address] Performed By: #### 5 8410-2 ####ED[facility] LABORATORYCLIA [id number] [place] [id number] [place] CONSULT PROGon 09-01-2024 CONSULT PROG Normal [facility] Magnesium SerPl-mCncon 09-01 Magnesium [Mass/Vol] 1.8 mg/dL Normal 1.7-2.3 [facility] Comment on above: Order Comment: Speci men Type: BLOOD SPECIMENOrdering Facility: [facility] Address: [address] [place] [address] Performed By: #### 2 4362-6, ####ED[facility] LABORATORYCLIA [id number] [place] [id number] [place] Renal function 2000 panelon 09-01-2024 Albumin [Mass/Vol] 2.7 g/dL Low 3.9-4.9 [facility] Comment on above: Order Comment: Speci men Type: BLOOD SPECIMENOrdering Facility: [facility] Address: [facility] [place] [id number] Performed By: #### 2 4362-6, ####ED[facility] LABORATORYCLIA [id number] [place] [id number] [place] Anion gap [Moles/Vol] 9 mmol/L Normal 8-15 [facility] Comment on above: Order Comment: Speci men Type: BLOOD SPECIMENOrdering Facility: [facility] Address: [facility] [place] [address] Performed By: #### 2 4362-6, ####ED[facility] LABORATORYCLIA [id number] [place] [address] [place] Calcium [Mass/Vol] 8.0 mg/dL Low 8.5-10.2 [facility] Comment on above: Order Comment: Speci men Type: BLOOD SPECIMENOrdering Facility: [facility] Address: [address] [place] [address] Performed By: #### 2 4362-6, ####[facility] LABORATORYCLIA [id number] [place] [id number] [place] Chloride [Moles/Vol] 101 mmol/L Normal 98-107 [facility] Comment on above: Order Comment: Speci men Type: BLOOD SPECIMENOrdering Facility: [facility] Address: [address] [place] [address] Performed By: #### 2 4362-6, ####[facility] LABORATORYCLIA [id number] [place] [id number] [place] CO2 [Moles/Vol] 28 mmol/L Normal 22-30 [facility] Comment on above: Order Comment: Speci men Type: BLOOD SPECIMENOrdering Facility: [facility] Address: [address] [place] [address] Performed By: #### 2 4362-6, ####[facility] LABORATORYCLIA [id number] [place] [id number] [place] Creatinine [Mass/Vol] 0.40 mg/dL Low 0.58-0.96 [facility] Comment on above: Order Comment: Speci men Type: BLOOD SPECIMENOrdering Facility: [facility] Address: [address] [place] [address] Performed By: #### 2 4362-6, ####[facility] LABORATORYCLIA [id number] [place] [id number] [place] Creatinine and Glomerular filtration rate.predicted panel (S/P/Bld) 110 mL/min/1.73m??? Normal >=60 [facility] Comment on above: Order Comment: Speci men Type: BLOOD SPECIMENOrdering Facility: [facility] Address: [address] [place] [address] Result Comment: Sana mated Glomerular Filtration Rate (eGFR) is calculated using the 2020 CKD-EPI creatinine equation. This equation utilizes serum creatinine, sex, and age as parameters. The creatinine assay has traceable calibration to isotope dilution-mass spectrometry. Refer to KDIGO guidelines for clinical interpretation. In patients with unstable renal function, e.g. those with acute kidney injury, the eGFR may not accurately reflect actual GFR. Performed By: #### 2 4362-6, ####EMMANUEL LABORATORYCLIA [id number] [place] [address] [place] Glucose [Mass/Vol] 106 mg/dL High 74-99 [facility] Comment on above: Order Comment: Umesh baugh Type: BLOOD SPECIMENOrdering Facility: [facility] Address: [address] [place] [address] Result Comment: The [place] [employer] (ADA) provides guidance for cutoff values for fasting glucose and random glucose. The ADA defines fasting as no caloric intake for at least 8 hours. Fasting plasma glucose results between 100 to 125 mg/dL indicate increased risk for diabetes (prediabetes).Fasting plasma glucose results greater than or equal to 126 mg/dL meet the criteria for diagnosis of diabetes. In the absence of unequivocal hyperglycemia, results should be confirmed by repeat testing. In a patient with classic symptoms of hyperglycemia or hyperglycemic crisis, random plasma glucose results greater than or equal to 200 mg/dL meet the criteria for diagnosis of diabetes.Reference: Standards of Medical Care in Diabetes 2016, [place] [employer]. Diabetes Care. 2016.39(Suppl 1). Performed By: #### 2 4362-6, ####EMMANUEL LABORATORYCLIA [id number] [place] [id number] [place] Phosphate [Mass/Vol] 4.0 mg/dL Normal 2.7-4.8 [facility] Comment on above: Order Comment: Umesh baugh Type: BLOOD SPECIMENOrdering Facility: [facility] Address: [address] [place] [address] Performed By: #### 2 4362-6, ####EMMANUEL LABORATORYCLIA [id number] [place] [id number] [place] Potassium [Moles/Vol] 3.4 mmol/L Low 3.7-5.1 [facility] Comment on above: Order Comment: Speci men Type: BLOOD SPECIMENOrdering Facility: [facility] Address: [address] [place] [address] Performed By: #### 2 4362-6, ####EMMANUEL LABORATORYCLIA [id number] [place] [id number] [place] Sodium [Moles/Vol] 138 mmol/L Normal 136-144 [facility] Comment on above: Order Comment: Speci men Type: BLOOD SPECIMENOrdering Facility: [facility] Address: [address] [place] [address] Performed By: #### 2 4362-6, ####EMMANUEL LABORATORYCLIA [id number] [place] [address] [place] Urea nitrogen [Mass/Vol] 10 mg/dL Normal 7-21 [facility] Comment on above: Order Comment: Speci men Type: BLOOD SPECIMENOrdering Facility: [facility] Address: [address] [place] [address] Performed By: #### 2 4362-6, ####[facility] LABORATORYCLIA [id number] [place] [address] [place] CBC panel Auto (Bld)on 08-31 Erythrocyte distribution width (RBC) [Ratio] 17.1 % High 11.5-15.0 [facility] Comment on above: Order Comment: Speci men Type: BLOOD SPECIMENOrdering Facility: [facility] Address: [address] [place] [address] Performed By: #### 5 8410-2 ####[facility] LABORATORYCLIA [id number] [address] [place] Hematocrit (Bld) [Volume fraction] 30.9 % Low 36.0-46.0 [facility] Comment on above: Order Comment: Speci men Type: BLOOD SPECIMENOrdering Facility: [facility] Address: [address] [place] [address] Performed By: #### 5 8410-2 ####[facility] LABORATORYCLIA [id number] [place] [address] [place] Hemoglobin (Bld) [Mass/Vol] 10.6 g/dL Low 11.5-15.5 [facility] Comment on above: Order Comment: Speci men Type: BLOOD SPECIMENOrdering Facility: [facility] Address: [address] [place] [address] Performed By: #### 5 8410-2 ####[facility] LABORATORYCLIA [id number] [address] [place] MCH (RBC) [Entitic mass] 31.0 pg Normal 26.0-34.0 [facility] Comment on above: Order Comment: Speci men Type: BLOOD SPECIMENOrdering Facility: [facility] Address: [address] [place] [address] Performed By: #### 5 8410-2 ####ED[facility] LABORATORYCLIA [id number] [address] [place] MCHC (RBC) [Mass/Vol] 34.3 g/dL Normal 30.5-36.0 [facility] Comment on above: Order Comment: Speci men Type: BLOOD SPECIMENOrdering Facility: [facility] Address: [address] [place] [address] Performed By: #### 5 8410-2 ####[facility] LABORATORYCLIA [id number] [address] [facility] MCV (RBC) [Entitic vol] 90.4 fL Normal 80.0-100.0 [facility] Comment on above: Order Comment: Speci men Type: BLOOD SPECIMENOrdering Facility: [facility] Address: [address] [place] [address] Performed By: #### 5 8410-2 ####[facility] LABORATORYCLIA [id number] [address] [place] Nucleated RBC (Bld) [#/Vol] 10*3/uL Normal <0.01 [facility] Comment on above: Order Comment: Speci men Type: BLOOD SPECIMENOrdering Facility: [facility] Address: [address] [place] [address] Performed By: #### 5 8410-2 ####EMMANUEL LABORATORYCLIA [id number] [place] [id number] [place] Platelet mean volume (Bld) [Entitic vol] 9.5 fL Normal 9.0-12.7 [facility] Comment on above: Order Comment: Speci men Type: BLOOD SPECIMENOrdering Facility: [facility] Address: [address] [place] [address] Performed By: #### 5 8410-2 ####EMMANUEL LABORATORYCLIA [id number] [place] [address] [place] Platelets (Bld) [#/Vol] 322 10*3/uL Normal 150-400 [facility] Comment on above: Order Comment: Speci men Type: BLOOD SPECIMENOrdering Facility: [facility] Address: [address] [place] [address] Performed By: #### 5 8410-2 ####[facility] LABORATORYCLIA [id number] [place] [id number] [place] RBC (Bld) [#/Vol] 3.42 10*6/uL Low 3.90-5.20 [facility] Comment on above: Order Comment: Speci men Type: BLOOD SPECIMENOrdering Facility: [facility] Address: [address] [place] [address] Performed By: #### 5 8410-2 ####EMMANUEL LABORATORYCLIA [id number] [place] [id number] [place] WBC (Bld) [#/Vol] 9.51 10*3/uL Normal 3.70-11.00 [facility] Comment on above: Order Comment: Speci men Type: BLOOD SPECIMENOrdering Facility: [facility] Address: [address] [place] [address] Performed By: #### 5 8410-2 ####EMMANUEL LABORATORYCLIA [id number] [place] [address] [place] CONSULT PROGon 08-31-2024 CONSULT PROG Normal [facility] Magnesium SerPl-mCncon 08-31 Magnesium [Mass/Vol] 2.0 mg/dL Normal 1.7-2.3 [facility] Comment on above: Order Comment: Speci men Type: BLOOD SPECIMENOrdering Facility: [facility] Address: [address] [place] [address] Performed By: #### 2 4362-6, ####ED[facility] LABORATORYCLIA [id number] [place] [id number] [place] NUTRITIONon 08-31-2024 NUTRITION Normal [facility] Renal function 2000 panelon 08-31-2024 Albumin [Mass/Vol] 2.7 g/dL Low 3.9-4.9 [facility] Comment on above: Order Comment: Speci men Type: BLOOD SPECIMENOrdering Facility: [facility] Address: [address] [place] [address] Performed By: #### 2 4362-6, ####ED[facility] LABORATORYCLIA [id number] [place] [id number] [place] Anion gap [Moles/Vol] 11 mmol/L Normal 8-15 [facility] Comment on above: Order Comment: Speci men Type: BLOOD SPECIMENOrdering Facility: [facility] Address: [address] [place] [address] Performed By: #### 2 4362-6, ####ED[facility] LABORATORYCLIA [id number] [place] [id number] [place] Calcium [Mass/Vol] 8.0 mg/dL Low 8.5-10.2 [facility] Comment on above: Order Comment: Speci men Type: BLOOD SPECIMENOrdering Facility: [facility] Address: [address] [place] [address] Performed By: #### 2 4362-6, ####ED[facility] LABORATORYCLIA [id number] [place] [id number] [place] Chloride [Moles/Vol] 104 mmol/L Normal 98-107 [facility] Comment on above: Order Comment: Speci men Type: BLOOD SPECIMENOrdering Facility: [facility] Address: [address] [place] [address] Performed By: #### 2 4362-6, ####EMMANUEL LABORATORYCLIA [id number] [place] [id number] [place] CO2 [Moles/Vol] 27 mmol/L Normal 22-30 [facility] Comment on above: Order Comment: Speci men Type: BLOOD SPECIMENOrdering Facility: [facility] Address: [address] [place] [address] Performed By: #### 2 4362-6, ####EMMANUEL LABORATORYCLIA [id number] [address] [place] Creatinine [Mass/Vol] 0.49 mg/dL Low 0.58-0.96 [facility] Comment on above: Order Comment: Speci men Type: BLOOD SPECIMENOrdering Facility: [facility] Address: [address] [place] [address] Performed By: #### 2 4362-6, ####EMMANUEL LABORATORYCLIA [id number] [address] Creatinine and Glomerular filtration rate.predicted panel (S/P/Bld) 105 mL/min/1.73m??? Normal >=60 [facility] Comment on above: Order Comment: Speci men Type: BLOOD SPECIMENOrdering Facility: [facility] Address: [address] [place] [address] Result Comment: Sana mated Glomerular Filtration Rate (eGFR) is calculated using the 2020 CKD-EPI creatinine equation. This equation utilizes serum creatinine, sex, and age as parameters. The creatinine assay has traceable calibration to isotope dilution-mass spectrometry. Refer to KDIGO guidelines for clinical interpretation. In patients with unstable renal function, e.g. those with acute kidney injury, the eGFR may not accurately reflect actual GFR. Performed By: #### 2 4362-6, ####EMMANUEL LABORATORYCLIA [id number] [place] [address] [place] Glucose [Mass/Vol] 106 mg/dL High 74-99 [facility] Comment on above: Order Comment: Umesh baugh Type: BLOOD SPECIMENOrdering Facility: [facility] Address: [address] [place] [address] Result Comment: The [place] [employer] (ADA) provides guidance for cutoff values for fasting glucose and random glucose. The ADA defines fasting as no caloric intake for at least 8 hours. Fasting plasma glucose results between 100 to 125 mg/dL indicate increased risk for diabetes (prediabetes).Fasting plasma glucose results greater than or equal to 126 mg/dL meet the criteria for diagnosis of diabetes. In the absence of unequivocal hyperglycemia, results should be confirmed by repeat testing. In a patient with classic symptoms of hyperglycemia or hyperglycemic crisis, random plasma glucose results greater than or equal to 200 mg/dL meet the criteria for diagnosis of diabetes.Reference: Standards of Medical Care in Diabetes 2016, [place] [employer]. Diabetes Care. 2016.39(Suppl 1). Performed By: #### 2 4362-6, ####[facility] LABORATORYCLIA [id number] [place] [id number] [place] Phosphate [Mass/Vol] 3.3 mg/dL Normal 2.7-4.8 [facility] Comment on above: Order Comment: Umesh baugh Type: BLOOD SPECIMENOrdering Facility: [facility] Address: [address] [place] [address] Performed By: #### 2 4362-6, ####ED[facility] LABORATORYCLIA [id number] [place] [id number] [place] Potassium [Moles/Vol] 3.4 mmol/L Low 3.7-5.1 [facility] Comment on above: Order Comment: Umesh baugh Type: BLOOD SPECIMENOrdering Facility: [facility] Address: [address] [place] [address] Performed By: #### 2 4362-6, ####ED[facility] LABORATORYCLIA [id number] [place] [id number] [place] Sodium [Moles/Vol] 142 mmol/L Normal 136-144 [facility] Comment on above: Order Comment: Speci men Type: BLOOD SPECIMENOrdering Facility: [facility] Address: [address] [place] [address] Performed By: #### 2 4362-6, 56757-7 ####EDEN LABORATORYCLIA [id number] [place] [address] [place] Urea nitrogen [Mass/Vol] 9 mg/dL Normal 7-21 [facility] Comment on above: Order Comment: Speci men Type: BLOOD SPECIMENOrdering Facility: [facility] Address: [address] [place] [address] Performed By: #### 2 4362-6, ####[facility] LABORATORYCLIA [id number] [address] [place] THERAPY NTon 08-31-2024 THERAPY NT Normal [facility] CASE MANAGEMon 08-30-2024 CASE MANAGEM Normal [facility] CBC panel Auto (Bld)on 08-30 Erythrocyte distribution width (RBC) [Ratio] 17.3 % High 11.5-15.0 [facility] Comment on above: Order Comment: Speci men Type: BLOOD SPECIMENOrdering Facility: [facility] Address: [address] [place] [address] Performed By: #### 5 8410-2 ####ED[facility] LABORATORYCLIA [id number] [place] [id number] [place] Hematocrit (Bld) [Volume fraction] 29.8 % Low 36.0-46.0 [facility] Comment on above: Order Comment: Speci men Type: BLOOD SPECIMENOrdering Facility: [facility] Address: [address] [place] [address] Performed By: #### 5 8410-2 ####[facility] LABORATORYCLIA [id number] [place] [address] [place] Hemoglobin (Bld) [Mass/Vol] 10.3 g/dL Low 11.5-15.5 [facility] Comment on above: Order Comment: Speci men Type: BLOOD SPECIMENOrdering Facility: [facility] Address: [address] [place] [address] Performed By: #### 5 8410-2 ####EMMANUEL LABORATORYCLIA [id number] [address] MCH (RBC) [Entitic mass] 31.6 pg Normal 26.0-34.0 [facility] Comment on above: Order Comment: Speci men Type: BLOOD SPECIMENOrdering Facility: [facility] Address: [address] [place] [address] Performed By: #### 5 8410-2 ####[facility] LABORATORYCLIA [id number] [address] MCHC (RBC) [Mass/Vol] 34.6 g/dL Normal 30.5-36.0 [facility] Comment on above: Order Comment: Speci men Type: BLOOD SPECIMENOrdering Facility: [facility] Address: [address] [place] [address] Performed By: #### 5 8410-2 ####[facility] LABORATORYCLIA [id number] [address] [place] MCV (RBC) [Entitic vol] 91.4 fL Normal 80.0-100.0 [facility] Comment on above: Order Comment: Speci men Type: BLOOD SPECIMENOrdering Facility: [facility] Address: [address] [place] [address] Performed By: #### 5 8410-2 ####EMMANUEL LABORATORYCLIA [id number] [address] [place] Nucleated RBC (Bld) [#/Vol] 10*3/uL Normal <0.01 [facility] Comment on above: Order Comment: Speci men Type: BLOOD SPECIMENOrdering Facility: [facility] Address: [address] [place] [address] Performed By: #### 5 8410-2 ####[facility] LABORATORYCLIA [id number] [address] [place] Platelet mean volume (Bld) [Entitic vol] 9.6 fL Normal 9.0-12.7 [facility] Comment on above: Order Comment: Speci men Type: BLOOD SPECIMENOrdering Facility: [facility] Address: [address] [place] [address] Performed By: #### 5 8410-2 ####EMMANUEL LABORATORYCLIA [id number] [place] [address] [place] Platelets (Bld) [#/Vol] 287 10*3/uL Normal 150-400 [facility] Comment on above: Order Comment: Speci men Type: BLOOD SPECIMENOrdering Facility: [facility] Address: [address] [place] [address] Performed By: #### 5 8410-2 ####[facility] LABORATORYCLIA [id number] [place] [address] [place] RBC (Bld) [#/Vol] 3.26 10*6/uL Low 3.90-5.20 [facility] Comment on above: Order Comment: Speci men Type: BLOOD SPECIMENOrdering Facility: [facility] Address: [address] [place] [address] Performed By: #### 5 8410-2 ####[facility] LABORATORYCLIA [id number] [place] [address] [place] WBC (Bld) [#/Vol] 10.93 10*3/uL Normal 3.70-11.00 [facility] Comment on above: Order Comment: Speci men Type: BLOOD SPECIMENOrdering Facility: [facility] Address: [address] [place] [address] Performed By: #### 5 8410-2 ####[facility] LABORATORYCLIA [id number] [place] [id number] [place] Erythrocyte distribution width (RBC) [Ratio] 13.4 % Normal 11.5-15.0 [facility] Comment on above: Order Comment: Speci men Type: BLOOD SPECIMENOrdering Facility: [facility] Address: [address] [place] [address] Performed By: #### 5 8410-2 ####EMMANUEL LABORATORYCLIA [id number] [address] [place] Hematocrit (Bld) [Volume fraction] 21.5 % Low 36.0-46.0 [facility] Comment on above: Order Comment: Speci men Type: BLOOD SPECIMENOrdering Facility: [facility] Address: [address] [place] [address] Performed By: #### 5 8410-2 ####EMMANUEL LABORATORYCLIA [id number] [address] [place] Hemoglobin (Bld) [Mass/Vol] 7.1 g/dL Low 11.5-15.5 [facility] Comment on above: Order Comment: Speci men Type: BLOOD SPECIMENOrdering Facility: [facility] Address: [address] [place] [address] Performed By: #### 5 8410-2 ####EMMANUEL LABORATORYCLIA [id number] [address] [place] MCH (RBC) [Entitic mass] 32.7 pg Normal 26.0-34.0 [facility] Comment on above: Order Comment: Speci men Type: BLOOD SPECIMENOrdering Facility: [facility] Address: [address] [place] [address] Performed By: #### 5 8410-2 ####EMMANUEL LABORATORYCLIA [id number] [address] [place] MCHC (RBC) [Mass/Vol] 33.0 g/dL Normal 30.5-36.0 [facility] Comment on above: Order Comment: Speci men Type: BLOOD SPECIMENOrdering Facility: [facility] Address: [address] [place] [address] Performed By: #### 5 8410-2 ####[facility] LABORATORYCLIA [id number] [address] MCV (RBC) [Entitic vol] 99.1 fL Normal 80.0-100.0 [facility] Comment on above: Order Comment: Speci men Type: BLOOD SPECIMENOrdering Facility: [facility] Address: [address] [place] [address] Performed By: #### 5 8410-2 ####ED[facility] LABORATORYCLIA [id number] [place] [id number] [place] Nucleated RBC (Bld) [#/Vol] 10*3/uL Normal <0.01 [facility] Comment on above: Order Comment: Speci men Type: BLOOD SPECIMENOrdering Facility: [facility] Address: [address] [place] [address] Performed By: #### 5 8410-2 ####[facility] LABORATORYCLIA [id number] [place] [id number] [place] Platelet mean volume (Bld) [Entitic vol] 9.6 fL Normal 9.0-12.7 [facility] Comment on above: Order Comment: Speci men Type: BLOOD SPECIMENOrdering Facility: [facility] Address: [address] [place] [address] Performed By: #### 5 8410-2 ####[facility] LABORATORYCLIA [id number] [place] [address] [place] Platelets (Bld) [#/Vol] 304 10*3/uL Normal 150-400 [facility] Comment on above: Order Comment: Speci men Type: BLOOD SPECIMENOrdering Facility: [facility] Address: [address] [place] [address] Performed By: #### 5 8410-2 ####ED[facility] LABORATORYCLIA [id number] [place] [id number] [place] RBC (Bld) [#/Vol] 2.17 10*6/uL Low 3.90-5.20 [facility] Comment on above: Order Comment: Speci men Type: BLOOD SPECIMENOrdering Facility: [facility] Address: [address] [place] [address] Performed By: #### 5 8410-2 ####[facility] LABORATORYCLIA [id number] [place] [id number] [place] WBC (Bld) [#/Vol] 9.88 10*3/uL Normal 3.70-11.00 [facility] Comment on above: Order Comment: Speci men Type: BLOOD SPECIMENOrdering Facility: [facility] Address: [address] [place] [address] Performed By: #### 5 8410-2 ####[facility] LABORATORYCLIA [id number] [place] [id number] [place] CONSULT PROGon 08-30-2024 CONSULT PROG Normal [facility] Magnesium SerPl-mCncon 08-30 Magnesium [Mass/Vol] 2.2 mg/dL Normal 1.7-2.3 [facility] Comment on above: Order Comment: Speci men Type: BLOOD SPECIMENOrdering Facility: [facility] Address: [address] [place] [address] Performed By: #### 1 9123-9, 76388-8 ####EDEN LABORATORYCLIA [id number] [place] [address] [place] NUTRITIONon 08-30-2024 NUTRITION Normal [facility] Renal function 2000 panelon 08-30-2024 Albumin [Mass/Vol] 2.9 g/dL Low 3.9-4.9 [facility] Comment on above: Order Comment: Speci men Type: BLOOD SPECIMENOrdering Facility: [facility] Address: [address] [place] [address] Performed By: #### 1 9123-9, 07776-1 ####[facility] LABORATORYCLIA [id number] [place] [id number] [place] Anion gap [Moles/Vol] 8 mmol/L Normal 8-15 [facility] Comment on above: Order Comment: Speci men Type: BLOOD SPECIMENOrdering Facility: [facility] Address: [address] [place] [address] Performed By: #### 1 9123-9, 26985-9 ####[facility] LABORATORYCLIA [id number] [place] [id number] [place] Calcium [Mass/Vol] 7.8 mg/dL Low 8.5-10.2 [facility] Comment on above: Order Comment: Speci men Type: BLOOD SPECIMENOrdering Facility: [facility] Address: [address] [place] [address] Performed By: #### 1 9123-9, 68705-1 ####EMMANUEL LABORATORYCLIA [id number] [place] [address] [place] Chloride [Moles/Vol] 107 mmol/L Normal 98-107 [facility] Comment on above: Order Comment: Speci men Type: BLOOD SPECIMENOrdering Facility: [facility] Address: [address] [place] [address] Performed By: #### 1 9123-9, 06129-5 ####EMMANUEL LABORATORYCLIA [id number] [place] [id number] [place] CO2 [Moles/Vol] 25 mmol/L Normal 22-30 [facility] Comment on above: Order Comment: Speci men Type: BLOOD SPECIMENOrdering Facility: [facility] Address: [address] [place] [address] Performed By: #### 1 9123-9, 07400-8 ####[facility] LABORATORYCLIA [id number] [place] [id number] [place] Creatinine [Mass/Vol] 0.75 mg/dL Normal 0.58-0.96 [facility] Comment on above: Order Comment: Speci men Type: BLOOD SPECIMENOrdering Facility: [facility] Address: [address] [place] [address] Performed By: #### 1 9123-9, 37849-9 ####[facility] LABORATORYCLIA [id number] [place] [id number] [place] Creatinine and Glomerular filtration rate.predicted panel (S/P/Bld) 88 mL/min/1.73m??? Normal >=60 [facility] Comment on above: Order Comment: Speci men Type: BLOOD SPECIMENOrdering Facility: [facility] Address: [address] [place] [address] Result Comment: Sana mated Glomerular Filtration Rate (eGFR) is calculated using the 2020 CKD-EPI creatinine equation. This equation utilizes serum creatinine, sex, and age as parameters. The creatinine assay has traceable calibration to isotope dilution-mass spectrometry. Refer to KDIGO guidelines for clinical interpretation. In patients with unstable renal function, e.g. those with acute kidney injury, the eGFR may not accurately reflect actual GFR. Performed By: #### 1 9123-9, 93070-9 ####EMMANUEL LABORATORYCLIA [id number] [place] [address] [place] Glucose [Mass/Vol] 119 mg/dL High 74-99 [facility] Comment on above: Order Comment: Speci men Type: BLOOD SPECIMENOrdering Facility: [facility] Address: [address] [place] [address] Result Comment: The [place] [employer] (ADA) provides guidance for cutoff values for fasting glucose and random glucose. The ADA defines fasting as no caloric intake for at least 8 hours. Fasting plasma glucose results between 100 to 125 mg/dL indicate increased risk for diabetes (prediabetes).Fasting plasma glucose results greater than or equal to 126 mg/dL meet the criteria for diagnosis of diabetes. In the absence of unequivocal hyperglycemia, results should be confirmed by repeat testing. In a patient with classic symptoms of hyperglycemia or hyperglycemic crisis, random plasma glucose results greater than or equal to 200 mg/dL meet the criteria for diagnosis of diabetes.Reference: Standards of Medical Care in Diabetes 2016, [place] [employer]. Diabetes Care. 2016.39(Suppl 1). Performed By: #### 1 9123-9, 18305-6 ####EMMANUEL LABORATORYCLIA [id number] [place] [id number] [place] Phosphate [Mass/Vol] 2.6 mg/dL Low 2.7-4.8 [facility] Comment on above: Order Comment: Speci men Type: BLOOD SPECIMENOrdering Facility: [facility] Address: [address] [place] [address] Performed By: #### 1 9123-9, 43665-2 ####EMMANUEL LABORATORYCLIA [id number] [place] [address] [place] Potassium [Moles/Vol] 4.2 mmol/L Normal 3.7-5.1 [facility] Comment on above: Order Comment: Speci men Type: BLOOD SPECIMENOrdering Facility: [facility] Address: [address] [place] [address] Performed By: #### 1 9123-9, 87684-0 ####EMMANUEL LABORATORYCLIA [id number] [place] [id number] [place] Sodium [Moles/Vol] 140 mmol/L Normal 136-144 [facility] Comment on above: Order Comment: Speci men Type: BLOOD SPECIMENOrdering Facility: [facility] Address: [address] [place] [address] Performed By: #### 1 9123-9, 45764-1 ####EMMANUEL LABORATORYCLIA [id number] [place] [id number] [place] Urea nitrogen [Mass/Vol] 11 mg/dL Normal 7-21 [facility] Comment on above: Order Comment: Speci men Type: BLOOD SPECIMENOrdering Facility: [facility] Address: [address] [place] [address] Performed By: #### 1 9123-9, 35098-8 ####EMMANUEL LABORATORYCLIA [id number] [place] [id number] [place] THERAPY NTon 08-30-2024 THERAPY NT Normal [facility] THERAPY NT Normal [facility] Basic metabolic 2000 panelon 08-29-2024 Anion gap [Moles/Vol] 10 mmol/L Normal 8-15 [facility] Comment on above: Order Comment: Speci men Type: BLOOD SPECIMENOrdering Facility: [facility] Address: [address] [place] [address] Performed By: #### 1 9123-9, 94487-8, 2777-1 ####[facility] LABORATORYCLIA [id number] [place] [id number] [place] Calcium [Mass/Vol] 8.0 mg/dL Low 8.5-10.2 [facility] Comment on above: Order Comment: Speci men Type: BLOOD SPECIMENOrdering Facility: [facility] Address: [address] [place] [address] Performed By: #### 1 9123-9, 37515-9, 2777- ####[facility] LABORATORYCLIA [id number] [place] [id number] [place] Chloride [Moles/Vol] 105 mmol/L Normal 98-107 [facility] Comment on above: Order Comment: Speci men Type: BLOOD SPECIMENOrdering Facility: [facility] Address: [address] [place] [address] Performed By: #### 1 9123-9, 48591-8, 277- ####ED[facility] LABORATORYCLIA [id number] [place] [id number] [place] CO2 [Moles/Vol] 23 mmol/L Normal 22-30 [facility] Comment on above: Order Comment: Speci men Type: BLOOD SPECIMENOrdering Facility: [facility] Address: [address] [place] [address] Performed By: #### 1 9123-9, 40428-4, 277- ####ED[facility] LABORATORYCLIA [id number] [place] [id number] [place] Creatinine [Mass/Vol] 0.56 mg/dL Low 0.58-0.96 [facility] Comment on above: Order Comment: Speci men Type: BLOOD SPECIMENOrdering Facility: [facility] Address: [address] [place] [address] Performed By: #### 1 9123-9, 73705-4, 277- ####EDEN LABORATORYCLIA [id number] [place] [address] [place] [facility] Creatinine and Glomerular filtration rate.predicted panel (S/P/Bld) 101 mL/min/1.73m??? Normal >=60 [facility] Comment on above: Order Comment: Speci men Type: BLOOD SPECIMENOrdering Facility: [facility] Address: [address] [place] [address] Result Comment: Sana mated Glomerular Filtration Rate (eGFR) is calculated using the 2020 CKD-EPI creatinine equation. This equation utilizes serum creatinine, sex, and age as parameters. The creatinine assay has traceable calibration to isotope dilution-mass spectrometry. Refer to KDIGO guidelines for clinical interpretation. In patients with unstable renal function, e.g. those with acute kidney injury, the eGFR may not accurately reflect actual GFR. Performed By: #### 1 9123-9, 76161-6, 2776-03 ####EMMANUEL LABORATORYCLIA [id number] [place] [id number] [place] Glucose [Mass/Vol] 127 mg/dL High 74-99 [facility] Comment on above: Order Comment: Umesh baugh Type: BLOOD SPECIMENOrdering Facility: [facility] Address: [address] [place] [address] Result Comment: The [place] Diabetes [employer] (ADA) provides guidance for cutoff values for fasting glucose and random glucose. The ADA defines fasting as no caloric intake for at least 8 hours. Fasting plasma glucose results between 100 to 125 mg/dL indicate increased risk for diabetes (prediabetes).Fasting plasma glucose results greater than or equal to 126 mg/dL meet the criteria for diagnosis of diabetes. In the absence of unequivocal hyperglycemia, results should be confirmed by repeat testing. In a patient with classic symptoms of hyperglycemia or hyperglycemic crisis, random plasma glucose results greater than or equal to 200 mg/dL meet the criteria for diagnosis of diabetes.Reference: Standards of Medical Care in Diabetes 2016, [place] [employer]. Diabetes Care. 2016.39(Suppl 1). Performed By: #### 1 9123-9, 23622-3, 2776-03 ####EMMANUEL LABORATORYCLIA [id number] [place] [id number] [place] Potassium [Moles/Vol] 3.7 mmol/L Normal 3.7-5.1 [facility] Comment on above: Order Comment: Umesh baugh Type: BLOOD SPECIMENOrdering Facility: [facility] Address: [address] [place] [address] Performed By: #### 1 9123-9, 29017-1, 2776-03 ####EMMANUEL LABORATORYCLIA [id number] [place] [id number] [place] Sodium [Moles/Vol] 138 mmol/L Normal 136-144 [facility] Comment on above: Order Comment: Umesh baugh Type: BLOOD SPECIMENOrdering Facility: [facility] Address: [address] [place] [address] Performed By: #### 1 9123-9, 15720-8, 2777- ####EMMANUEL LABORATORYCLIA [id number] [place] [address] [place] Urea nitrogen [Mass/Vol] 13 mg/dL Normal 7-21 [facility] Comment on above: Order Comment: Speci men Type: BLOOD SPECIMENOrdering Facility: [facility] Address: [address] [place] [address] Performed By: #### 1 9123-9, 03397-7, 277- ####EMMANUEL LABORATORYCLIA [id number] [place] [address] [place] CASE MGT INIT ASSESon 2024 CASE MGT INIT ASSES Normal [facility] CBC W Auto Differential pane l (Bld)on 08-29-2024 Basophils (Bld) [#/Vol] 10*3/uL Normal <0.11 [facility] Comment on above: Order Comment: Speci men Type: BLOOD SPECIMENOrdering Facility: [facility] Address: [address] [place] [address] Performed By: #### 5 7021-8 ####EMMANUEL LABORATORYCLIA [id number] [place] [address] [place] Basophils/100 WBC (Bld) 0.1 % Normal [facility] Comment on above: Order Comment: Speci men Type: BLOOD SPECIMENOrdering Facility: [facility] Address: [address] [place] [address] Performed By: #### 5 7021-8 ####EMMANUEL LABORATORYCLIA [id number] [place] [id number] [place] Differential cell count method Nom (Bld) Auto Normal [facility] Comment on above: Order Comment: Speci men Type: BLOOD SPECIMENOrdering Facility: [facility] Address: [address] [place] [address] Performed By: #### 5 7021-8 ####EMMANUEL LABORATORYCLIA [id number] [place] [address] [place] Eosinophils (Bld) [#/Vol] 10*3/uL Normal <0.46 [facility] Comment on above: Order Comment: Speci men Type: BLOOD SPECIMENOrdering Facility: [facility] Address: [address] [place] [address] Performed By: #### 5 7021-8 ####EMMANUEL LABORATORYCLIA [id number] [place] [address] [place] Eosinophils/100 WBC (Bld) 0.0 % Normal [facility] Comment on above: Order Comment: Speci men Type: BLOOD SPECIMENOrdering Facility: [facility] Address: [address] [place] [address] Performed By: #### 5 7021-8 ####EMMANUEL LABORATORYCLIA [id number] [address] [place] Erythrocyte distribution width (RBC) [Ratio] 13.2 % Normal 11.5-15.0 [facility] Comment on above: Order Comment: Speci men Type: BLOOD SPECIMENOrdering Facility: [facility] Address: [address] [place] [address] Performed By: #### 5 7021-8 ####EMMANUEL LABORATORYCLIA [id number] [address] [place] Hematocrit (Bld) [Volume fraction] 24.9 % Low 36.0-46.0 [facility] Comment on above: Order Comment: Speci men Type: BLOOD SPECIMENOrdering Facility: [facility] Address: [address] [place] [address] Performed By: #### 5 7021-8 ####EMMANUEL LABORATORYCLIA [id number] [place] [address] [place] Hemoglobin (Bld) [Mass/Vol] 8.2 g/dL Low 11.5-15.5 [facility] Comment on above: Order Comment: Speci men Type: BLOOD SPECIMENOrdering Facility: [facility] Address: [address] [place] [address] Performed By: #### 5 7021-8 ####[facility] LABORATORYCLIA [id number] [place] [id number] [place] Immature granulocytes (Bld) [#/Vol] 0.04 10*3/uL Normal <0.10 [facility] Comment on above: Order Comment: Speci men Type: BLOOD SPECIMENOrdering Facility: [facility] Address: [address] [place] [address] Performed By: #### 5 7021-8 ####[facility] LABORATORYCLIA [id number] [place] [id number] [place] Immature granulocytes/100 WBC (Bld) 0.4 % Normal [facility] Comment on above: Order Comment: Speci men Type: BLOOD SPECIMENOrdering Facility: [facility] Address: [address] [place] [address] Performed By: #### 5 7021-8 ####EMMANUEL LABORATORYCLIA [id number] [place] [id number] [place] Lymphocytes (Bld) [#/Vol] 1.04 10*3/uL Normal 1.00-4.00 [facility] Comment on above: Order Comment: Speci men Type: BLOOD SPECIMENOrdering Facility: [facility] Address: [address] [place] [address] Performed By: #### 5 7021-8 ####EMMANUEL LABORATORYCLIA [id number] [place] [id number] [place] Lymphocytes/100 WBC (Bld) 10.3 % Normal [facility] Comment on above: Order Comment: Speci men Type: BLOOD SPECIMENOrdering Facility: [facility] Address: [address] [place] [address] Performed By: #### 5 7021-8 ####[facility] LABORATORYCLIA [id number] [place] [id number] [place] MCH (RBC) [Entitic mass] 32.9 pg Normal 26.0-34.0 [facility] Comment on above: Order Comment: Speci men Type: BLOOD SPECIMENOrdering Facility: [facility] Address: [address] [place] [address] Performed By: #### 5 7021-8 ####[facility] LABORATORYCLIA [id number] [place] [id number] [place] MCHC (RBC) [Mass/Vol] 32.9 g/dL Normal 30.5-36.0 [facility] Comment on above: Order Comment: Speci men Type: BLOOD SPECIMENOrdering Facility: [facility] Address: [address] [place] [address] Performed By: #### 5 7021-8 ####[facility] LABORATORYCLIA [id number] [place] [address] [place] MCV (RBC) [Entitic vol] 100.0 fL Normal 80.0-100.0 [facility] Comment on above: Order Comment: Speci men Type: BLOOD SPECIMENOrdering Facility: [facility] Address: [address] [place] [address] Performed By: #### 5 7021-8 ####[facility] LABORATORYCLIA [id number] [place] [address] [place] Monocytes (Bld) [#/Vol] 1.10 10*3/uL High <0.87 [facility] Comment on above: Order Comment: Speci men Type: BLOOD SPECIMENOrdering Facility: [facility] Address: [address] [place] [address] Performed By: #### 5 7021-8 ####[facility] LABORATORYCLIA [id number] [place] [address] [place] Monocytes/100 WBC (Bld) 10.9 % Normal [facility] Comment on above: Order Comment: Speci men Type: BLOOD SPECIMENOrdering Facility: [facility] Address: [address] [place] [address] Performed By: #### 5 7021-8 ####[facility] LABORATORYCLIA [id number] [place] [address] [place] Neutrophils (Bld) [#/Vol] 7.90 10*3/uL High 1.45-7.50 [facility] Comment on above: Order Comment: Speci men Type: BLOOD SPECIMENOrdering Facility: [facility] Address: [address] [place] [address] Performed By: #### 5 7021-8 ####[facility] LABORATORYCLIA [id number] [place] [id number] [facility] Neutrophils/100 WBC (Bld) 78.3 % Normal [facility] Comment on above: Order Comment: Speci men Type: BLOOD SPECIMENOrdering Facility: [facility] Address: [address] [place] [address] Performed By: #### 5 7021-8 ####[facility] LABORATORYCLIA [id number] [place] [id number] [place] Nucleated RBC (Bld) [#/Vol] 10*3/uL Normal <0.01 [facility] Comment on above: Order Comment: Speci men Type: BLOOD SPECIMENOrdering Facility: [facility] Address: [address] [place] [address] Performed By: #### 5 7021-8 ####[facility] LABORATORYCLIA [id number] [place] [address] [place] Nucleated RBC/100 WBC (Bld) [Ratio] 0.0 /100 WBC Normal [facility] Comment on above: Order Comment: Speci men Type: BLOOD SPECIMENOrdering Facility: [facility] Address: [address] [place] [address] Performed By: #### 5 7021-8 ####[facility] LABORATORYCLIA [id number] [place] [id number] [place] Platelet mean volume (Bld) [Entitic vol] 9.6 fL Normal 9.0-12.7 [facility] Comment on above: Order Comment: Speci men Type: BLOOD SPECIMENOrdering Facility: [facility] Address: [address] [place] [address] Performed By: #### 5 7021-8 ####[facility] LABORATORYCLIA [id number] [place] [id number] [place] Platelets (Bld) [#/Vol] 341 10*3/uL Normal 150-400 [facility] Comment on above: Order Comment: Speci men Type: BLOOD SPECIMENOrdering Facility: [facility] Address: [address] [place] [address] Performed By: #### 5 7021-8 ####[facility] LABORATORYCLIA [id number] [place] [id number] [place] RBC (Bld) [#/Vol] 2.49 10*6/uL Low 3.90-5.20 [facility] Comment on above: Order Comment: Speci men Type: BLOOD SPECIMENOrdering Facility: [facility] Address: [address] [place] [address] Performed By: #### 5 7021-8 ####[facility] LABORATORYCLIA [id number] [place] [address] [place] WBC (Bld) [#/Vol] 10.09 10*3/uL Normal 3.70-11.00 [facility] Comment on above: Order Comment: Speci men Type: BLOOD SPECIMENOrdering Facility: [facility] Address: [address] [place] [address] Performed By: #### 5 7021-8 ####[facility] LABORATORYCLIA [id number] [place] [id number] [place] CONSULT PROGon 08-29-2024 CONSULT PROG [facility] Magnesium SerPl-ncon 08-29 Magnesium [Mass/Vol] 1.7 mg/dL Normal 1.7-2.3 [facility] Comment on above: Order Comment: Speci men Type: BLOOD SPECIMENOrdering Facility: [facility] Address: [address] [place] [address] Performed By: #### 1 9123-9, 16325-7, 2777-1 ####[facility] LABORATORYCLIA [id number] [place] [id number] [place] NURSING PROGon 08-29-2024 NURSING PROG [facility] NURSING PROG Normal [facility] NUTRITIONon 08-29-2024 NUTRITION Normal [facility] NUTRITION [facility] Phosphate SerPl-mCncon 08-29 Phosphate [Mass/Vol] 3.0 mg/dL Normal 2.7-4.8 [facility] Comment on above: Order Comment: Speci men Type: BLOOD SPECIMENOrdering Facility: [facility] Address: [address] [place] [address] Performed By: #### 1 9123-9, 36484-1, 2777-1 ####[facility] LABORATORYCLIA [id number] [place] [id number] [place] THERAPY NTon 08-29-2024 THERAPY NT Normal [facility] THERAPY NT Normal [facility] ANES POSTPROC EVALon 025 ANES POSTPROC EVAL Normal [facility] ANES PRE-OPon 08-28-2024 ANES PRE-OP Normal [facility] BRIEF OP NOTon 08-28-2024 BRIEF OP NOT Normal [facility] Basic metabolic 2000 panelon 08-28-2024 Anion gap [Moles/Vol] 13 mmol/L Normal 8-15 [facility] Comment on above: Order Comment: Speci men Type: BLOOD SPECIMENOrdering Facility: [facility] Address: [address] [place] [address] Performed By: #### 2 4321-2 ####[facility] LABORATORYCLIA [id number] [place] [id number] [place] Calcium [Mass/Vol] 7.7 mg/dL Low 8.5-10.2 [facility] Comment on above: Order Comment: Speci men Type: BLOOD SPECIMENOrdering Facility: [facility] Address: [address] [place] [address] Performed By: #### 2 4321-2 ####[facility] LABORATORYCLIA [id number] [place] [id number] [place] Chloride [Moles/Vol] 104 mmol/L Normal 98-107 [facility] Comment on above: Order Comment: Speci men Type: BLOOD SPECIMENOrdering Facility: [facility] Address: [address] [place] [address] Performed By: #### 2 4321-2 ####[facility] LABORATORYCLIA [id number] [place] [address] [place] CO2 [Moles/Vol] 20 mmol/L Low 22-30 [facility] Comment on above: Order Comment: Speci men Type: BLOOD SPECIMENOrdering Facility: [facility] Address: [address] [place] [address] Performed By: #### 2 4321-2 ####[facility] LABORATORYCLIA [id number] [place] [id number] [place] Creatinine [Mass/Vol] 0.51 mg/dL Low 0.58-0.96 [facility] Comment on above: Order Comment: Speci men Type: BLOOD SPECIMENOrdering Facility: [facility] Address: [address] [place] [address] Performed By: #### 2 4321-2 ####[facility] LABORATORYCLIA [id number] [address] [place] Creatinine and Glomerular filtration rate.predicted panel (S/P/Bld) 104 mL/min/1.73m??? Normal >=60 [facility] Comment on above: Order Comment: Speci men Type: BLOOD SPECIMENOrdering Facility: [facility] Address: [address] [place] [address] Result Comment: Sana mated Glomerular Filtration Rate (eGFR) is calculated using the 2020 CKD-EPI creatinine equation. This equation utilizes serum creatinine, sex, and age as parameters. The creatinine assay has traceable calibration to isotope dilution-mass spectrometry. Refer to KDIGO guidelines for clinical interpretation. In patients with unstable renal function, e.g. those with acute kidney injury, the eGFR may not accurately reflect actual GFR. Performed By: #### 2 4321-2 ####[facility] LABORATORYCLIA [id number] [place] [id number] [place] Glucose [Mass/Vol] 196 mg/dL High 74-99 [facility] Comment on above: Order Comment: Speci men Type: BLOOD SPECIMENOrdering Facility: [facility] Address: [address] [place] [address] Result Comment: The [place] [employer] (ADA) provides guidance for cutoff values for fasting glucose and random glucose. The ADA defines fasting as no caloric intake for at least 8 hours. Fasting plasma glucose results between 100 to 125 mg/dL indicate increased risk for diabetes (prediabetes).Fasting plasma glucose results greater than or equal to 126 mg/dL meet the criteria for diagnosis of diabetes. In the absence of unequivocal hyperglycemia, results should be confirmed by repeat testing. In a patient with classic symptoms of hyperglycemia or hyperglycemic crisis, random plasma glucose results greater than or equal to 200 mg/dL meet the criteria for diagnosis of diabetes.Reference: Standards of Medical Care in Diabetes 2016, [place] [employer]. Diabetes Care. 2016.39(Suppl 1). Performed By: #### 2 4321-2 ####[facility] LABORATORYCLIA [id number] [place] [address] [place] Potassium [Moles/Vol] 4.2 mmol/L Normal 3.7-5.1 [facility] Comment on above: Order Comment: Umesh baugh Type: BLOOD SPECIMENOrdering Facility: [facility] Address: [address] [place] [address] Performed By: #### 2 4321-2 ####[facility] LABORATORYCLIA [id number] [place] [address] [place] Sodium [Moles/Vol] 137 mmol/L Normal 136-144 [facility] Comment on above: Order Comment: Umesh baugh Type: BLOOD SPECIMENOrdering Facility: [facility] Address: [address] [place] [address] Performed By: #### 2 4321-2 ####[facility] LABORATORYCLIA [id number] [place] [id number] [place] Urea nitrogen [Mass/Vol] 12 mg/dL Normal 7-21 [facility] Comment on above: Order Comment: Umesh baugh Type: BLOOD SPECIMENOrdering Facility: [facility] Address: [address] [place] [address] Performed By: #### 2 4321-2 ####[facility] LABORATORYCLIA [id number] [place] [id number] [place] CBC panel Auto (Bld)on 08-28 Erythrocyte distribution width (RBC) [Ratio] 13.2 % Normal 11.5-15.0 [facility] Comment on above: Order Comment: Speci men Type: BLOOD SPECIMENOrdering Facility: [facility] Address: [address] [place] [address] Performed By: #### 5 8410-2 ####[facility] LABORATORYCLIA [id number] [address] [place] Hematocrit (Bld) [Volume fraction] 26.4 % Low 36.0-46.0 [facility] Comment on above: Order Comment: Speci men Type: BLOOD SPECIMENOrdering Facility: [facility] Address: [address] [place] [address] Performed By: #### 5 8410-2 ####[facility] LABORATORYCLIA [id number] [address] [place] Hemoglobin (Bld) [Mass/Vol] 9.0 g/dL Low 11.5-15.5 [facility] Comment on above: Order Comment: Speci men Type: BLOOD SPECIMENOrdering Facility: [facility] Address: [address] [place] [address] Performed By: #### 5 8410-2 ####[facility] LABORATORYCLIA [id number] [place] [address] [place] MCH (RBC) [Entitic mass] 33.3 pg Normal 26.0-34.0 [facility] Comment on above: Order Comment: Speci men Type: BLOOD SPECIMENOrdering Facility: [facility] Address: [address] [place] [address] Performed By: #### 5 8410-2 ####[facility] LABORATORYCLIA [id number] [place] [address] [place] MCHC (RBC) [Mass/Vol] 34.1 g/dL Normal 30.5-36.0 [facility] Comment on above: Order Comment: Speci men Type: BLOOD SPECIMENOrdering Facility: [facility] Address: [address] [place] [address] Performed By: #### 5 8410-2 ####[facility] LABORATORYCLIA [id number] [place] [address] [place] MCV (RBC) [Entitic vol] 97.8 fL Normal 80.0-100.0 [facility] Comment on above: Order Comment: Speci men Type: BLOOD SPECIMENOrdering Facility: [facility] Address: [address] [place] [address] Performed By: #### 5 8410-2 ####[facility] LABORATORYCLIA [id number] [place] [id number] [place] Nucleated RBC (Bld) [#/Vol] 10*3/uL Normal <0.01 [facility] Comment on above: Order Comment: Speci men Type: BLOOD SPECIMENOrdering Facility: [facility] Address: [address] [place] [address] Performed By: #### 5 8410-2 ####[facility] LABORATORYCLIA [id number] [place] [address] [place] Platelet mean volume (Bld) [Entitic vol] 9.5 fL Normal 9.0-12.7 [facility] Comment on above: Order Comment: Speci men Type: BLOOD SPECIMENOrdering Facility: [facility] Address: [address] [place] [address] Performed By: #### 5 8410-2 ####[facility] LABORATORYCLIA [id number] [place] [address] [place] Platelets (Bld) [#/Vol] 358 10*3/uL Normal 150-400 [facility] Comment on above: Order Comment: Speci men Type: BLOOD SPECIMENOrdering Facility: [facility] Address: [address] [place] [address] Performed By: #### 5 8410-2 ####[facility] LABORATORYCLIA [id number] [place] [id number] [place] RBC (Bld) [#/Vol] 2.70 10*6/uL Low 3.90-5.20 [facility] Comment on above: Order Comment: Speci men Type: BLOOD SPECIMENOrdering Facility: [facility] Address: [address] [place] [address] Performed By: #### 5 8410-2 ####[facility] LABORATORYCLIA [id number] [place] [id number] [place] WBC (Bld) [#/Vol] 11.10 10*3/uL High 3.70-11.00 [facility] Comment on above: Order Comment: Speci men Type: BLOOD SPECIMENOrdering Facility: [facility] Address: [address] [place] [address] Performed By: #### 5 8410-2 ####[facility] LABORATORYCLIA [id number] [place] [id number] [facility] [place] NURSING PROGon 08-28-2024 NURSING PROG Normal [facility] OPERATIVE NOon 08-28-2024 OPERATIVE NO [facility] Pathology biopsy report Cordell (Tiss)on 08-28-2024 AP DISCLAIMER [facility] Comment on above: Order Comment: Speci men Type: TISSUE SPECIMENOrdering Facility: [facility] Address: [address] [place] [address] Result Comment: Vero voss Developed Test (LDT) Disclaimer:Performance characteristics of immunohistochemical, immunofluorescent, and chromogenic in-situ hybridization tests have been determined by the performing laboratory within [facility] [place] [facility] and Laboratory Medicine Department ([facility], [facility], [facility], [facility], [facility], [facility], or [facility]) in a manner consistent with CLIA requirements. One or more of these tests may not have been cleared or approved by the FDA. [facility] is regulated under CLIA as qualified to perform high-complexity testing. These tests are used for clinical purposes. These should not be regarded as investigational or for research. Positive and negative controls stain appropriately. Performed By: #### 6 6121-5 ####[facility] LABORATORYCLIA [id number] [place] [id number] [place] CASE REPORT Normal [facility] Comment on above: Order Comment: Speci men Type: TISSUE SPECIMENOrdering Facility: [facility] Address: [address] [place] [address] Result Comment: Surg ical Pathology Report Case: [id number] Provider: Tessa Spring MD Collected: 08/28/2024 10:57 AMOrdering Location: [facility] Received: 08/28/2024 03:21 PM Operating RoomPathologist: Jimbo Mesa MDSpecimens: A) - Ovary, Right, Resection B) - Soft Tissue, Mass, Resection, Right Rectoperitoneal mass C) - Margin, Excision, Ileac Margin D) - Mesentery, Additional Mesentary nodule E) - Colon and Small Bowel, Right Hemicolectomy Performed By: #### 6 6121-5 ####[facility]-MINDEDCLIA [id number] [address] CLINICAL HISTORY Normal [facility] Comment on above: Order Comment: Speci men Type: TISSUE SPECIMENOrdering Facility: [facility] Address: [address] [place] [address] Result Comment: Pre- op diagnosis:Malignant neoplasm of ascending colon (HCC) [C18.2] Performed By: #### 6 6121-5 ####[facility]-MINDEDCLIA [id number] [address] DIAGNOSIS COMMENT Normal [facility] Comment on above: Order Comment: Speci men Type: TISSUE SPECIMENOrdering Facility: [facility] Address: [address] [place] [address] Result Comment: A. I mmunohistochemical stains have been performed on block A1 for tumor classification. The tumor cells are positive for desmin and are negative for DOG1, CD117, and S100. The combined histomorphologic and immunohistochemical findings support the diagnosis of a leiomyoma.B. Tumor is present within 1 mm of the inked outer surface of the specimen.Selected slides from Parts A and B were reviewed with Dr. Sana Freeman from the section of Gynecologic Pathology. Performed By: #### 6 6121-5 ####[facility] LABORATORYCLIA [id number] [address] FINAL DIAGNOSIS [facility] Comment on above: Order Comment: Speci men Type: TISSUE SPECIMENOrdering Facility: [facility] Address: [address] [place] [address] Result Comment: Armando glass designated right ovary, excision:- Leiomyoma (see comment).- Metastatic adenocarcinoma, morphologically consistent with colonic primary, involving peritoneal surface.- No ovarian parenchyma identified in sales and marketing representative sections.B. Right retroperitoneal mass, resection:- Recurrent/metastatic adenocarcinoma, morphologically consistent with colonic primary, involving right ovary and retroperitoneal soft tissue (see comment).- Definitive fallopian tube is not identified.C. Soft tissue, iliac margin, excision:- Small focus of adenocarcinoma, morphologically consistent with colonic primary, involving fibroadipose tissue.D. Additional mesenteric nodule, excision:- Metastatic adenocarcinoma involving one lymph node (03/27).E. Segments of ileum and colon with anastomosis, resection:- Recurrent/metastatic adenocarcinoma, morphologically consistent with colonic primary, involving small bowel and adherent abdominal wall soft tissue.- Circumferential (radial) margin is positive for tumor.- Intact anastomosis.- Nine lymph nodes, negative for malignancy (0/9).- Seven (7) tumor deposits.JEL 09/02/2024 at 1105 EDT Performed By: #### 6 6121-5 ####[facility] LABORATORYCLIA [id number] [place] [address] [place] [facility] FINAL PERFORMING LAB Normal [facility] Comment on above: Order Comment: Speci men Type: TISSUE SPECIMENOrdering Facility: [facility] Address: [address] [place] [address] Result Comment: Diag nostic interpretation performed at: [facility], [address] [place] [address] CLIA# [id number] Director: Sana Freeman MD Performed By: #### 6 6121-5 ####[facility] LABORATORYCLIA [id number] [address] OF [facility] GROSS DESCRIPTION Normal [facility] Comment on above: Order Comment: Speci men Type: TISSUE SPECIMENOrdering Facility: [facility] Address: [address] [place] [address] Result Comment: A. O vary, Right, ResectionReceived in formalin designated right ovary resection is a dominguez-white bosselated nodule that measures 4.5 x 2.9 x 2.1 cm and weighs 18 g. Sectioning through the nodule reveals dominguez-white whirled and homogeneous cut surfaces. Ovarian parenchyma is not identified. Certified Nurse Operating Room sections are submitted in three cassettes.WE August 29, 2024 12:17 PMGross examination performed at [facility], [address] [place], [place] [address]U. Soft Tissue, Mass, ResectionReceived in formalin designated right retroperitoneal mass is a dominguez ragged mass that measures 5.9 x 5.5 x 4.3 cm. The outer surface of the mass is inked black. Adherent to the mass appears to be a portion of fallopian tube (2 cm in length and 0.5 cm in diameter) and possible ovary (1.5 x 1.2 x 0.6 cm). Sectioning through the mass reveals dominguez-white granular cut surfaces with central necrosis. The mass does not appear to extend beyond the inked outer surface. Adjacent to the mass is a lymph node that measures 2.5 cm in greatest dimension. The cut surface of the lymph node are dominguez-white and granular. The outer surface of the fallopian tube is markedly ragged. The fimbriated end cannot be identified. Sectioning through the tube reveals a dominguez-white granular material within the lumen. The outer surface of the ovary is dusky. Sectioning through the ovary reveals dominguez-white and granular cut surfaces. Certified Nurse Operating Room sections are submitted as follows: B1-B5 mass with outer surface inked black, B6 possible fallopian tube, B7 possible ovary, B8 sales and marketing representative sections of lymph node.WE August 29, 2024 11:01 AMGross examination performed at [facility], [address] [place], [place] [address]T. Margin, ExcisionReceived in formalin designated iliac margin is an unoriented dominguez-kennedy fragment of fibrous tissue that measures 1.3 x 1 x 0.6 cm. The specimen is entirely submitted in one cassette.WE August 29, 2024 12:17 PMGross examination performed at [facility], [address] [place], [place] [address]V. MesenteryReceived in formalin designated additional mesentery nodule is a dominguez-yellow rubbery and lobulated portion of mesentery that measures 3.5 x 1.3 x 1.2 cm. The mesenteric margin is inked black. Sectioning through the mesentery reveals a dominguez-white granular nodule that measures 0.6 x 0.6 x 0.4 cm. The nodule is located 0.2 cm from the mesenteric resection margin. Certified Nurse Operating Room sections are submitted in one cassette.WE August 29, 2024 12:21 PMGross examination performed at [facility], [address] [place], [place] [address]. Colon and Small Bowel, Right HemicolectomyReceived in formalin designated colon and small bowel is a segment of small bowel (32 cm in length and ranging from 2.5 to 4 cm in circumference) and anastomosed segment of large bowel (5.8 cm in length and 8 cm in circumference). The small bowel is slightly kinked in the midportion. At the site of kinking is an adherent segment of soft tissue that measures 4 x 3 x 1.8 cm. Sectioning through the adherent segment of soft tissue reveals a dominguez-white granular and ill-defined nodule that measures 2.3 x 2.2 x 1.7 cm. The nodule is located 0.1 cm from the soft tissue circumferential (radial) margin, 0.7 cm from the mesenteric margin, 11.2 cm from the proximal margin, and 14.5 cm from the distal margin. The nodule does not appear to involve the small bowel wall mucosa. The bowel is opened to reveal an anastomotic line. The small bowel mucosa is slightly narrowed at the site of kinking. The remaining small bowel mucosa is unremarkable, showing normal mucosal folds, with a wall thickness of 0.5 cm. The large bowel mucosa is unremarkable, showing normal mucosal folds, with a wall thickness of 0.4 cm. Certified Nurse Operating Room sections are submitted as follows: E1 proximal margin perpendicular (inked orange) and distal margin perpendicular (inked blue), E2-E3 nodule with circumferential (radial) margin perpendicular (inked black), E4 mesenteric margin perpendicular (inked black), E5-E6 nodule with small bowel, E7 anastomotic line, E8 five intact small bowel lymph nodes, E9 single bisected lymph node, E10 four intact lymph nodes, E11 three intact lymph nodes, E12 three intact lymph nodes.WE August 29, 2024 11:35 AMGross examination performed at [facility], [address] [place] [address] Performed By: #### 6 6121-5 ####EDEN LABORATORYCLIA [id number] [place] [address] [place] TARGETED ONCOLOGY PANEL NEXT GENERATION SEQUENCING OTHERon 08-28-2024 TARGETED ONCOLOGY PANEL NEXT GENERATION SEQUENCING OTHER Normal [facility] Comment on above: Order Comment: Speci men Type: TISSUE SPECIMENOrdering Facility: [facility] Address: [address] [address] Result Comment: [facility] Targeted Oncology PanelLaboratory Accession Number: [id number] #: [id number] #: [id number] Type: FFPET% Tumor: 50CASE SUMMARY:No clinically significant single nucleotide variants, insertions,deletions, copy number gains, RNA fusions or aberrant transcripts weredetected in this specimen. Clinical and histopathological correlationis recommended.*Unless otherwise stated, all assay hotspot regions have been tested(see EVALUATED GENES below) and only positive genes are reported.RESULTS:Single Nucleotide Variants/Indels: None detectedCopy Number Gains: None detectedRNA Fusions and Aberrant Transcripts: None detectedVARIANT INTERPRETATIONS: None detectedVariants of uncertain significance detected:None detectedRegions with coverage <100x:MTOR:NM_004958.3:Ex40 chr1:[id number] Range: 87-92METHODOLOGY:Extracted nucleic acid from the specimen, both DNA and RNA, weresubjected to separate targeted amplification reactions, using AmplLumetric Lightingcustom primers designed by [employer] ([employer], [place], [place]). Hotspots and selected fusions in generegions listed below were sequenced using Illumina ([place], [place])2x150 paired-end cycle chemistry. A customized bioinformaticsanalytical platform was used for read alignment (Genome GovrbUFJh97/hg19), variant identification and annotation. Single nucleotidevariants (SNVs), insertion, deletion (indels) and copy number gainvariants are detected by DNA sequencing. Select fusions and aberranttranscripts (EGFR vIII and MET exon 14 skipping transcripts) aredetected by RNA sequencing. Variants are classified according toestablished guidelines (1). Reported results include variants ofstrong or potential clinical significance and variants of unclearclinical significance. Benign population polymorphisms are notincluded in the report. If relevant, standard of care therapies forvarious solid tumor types/indications (FDA-approved biomarker orstandard biomarker recommended by a professional society) are providedin the variant interpretation section, as well as markers resistant toFDA-approved drugs. This information is not to be considered arecommendation for therapy.Based on validation, the DNA testing delivered an average of >500xcoverage and >99% of targeted regions showed over 100x coverage. Aminimum coverage depth of 100 reads is required across the entireregion of interest; a list of low coverage areas is included in thereport as applicable. The test demonstrated 100% sensitivity and 100%specificity in identifying SNVs, indels and copy number gains. Thelower limit of detection of this assay is approximately 5% variantallele fraction (VAF) for SNV/indels and 6 copies or greater for copynumber gains. Variants below these thresholds may be reported at thediscretion of the molecular pathology professional staff if thetechnical quality of the sequencing is sufficient at that location andthe call is unequivocal.Based on validation, the RNA fusion testing averaged >150,000 totalreads. The test demonstrated 93% sensitivity and 100% specificity ingene fusion identification compared to NGS sequencing, and 69%sensitivity and 100% specificity compared to FISH of fusion drivers(unknown fusion partner). Overall sensitivity is 78% and accuracy is99%. The lower limit of detection is approximately 1% of totalsequencing reads.LIMITATIONS:Sequence changes outside the analyzed alterations hotspots, includingintronic and noncoding regions, will not be identified by this test.Insertions and deletions larger than 20 and 40 bp, respectively, maynot be identified by this test. Negative results from specimens forwhich the percentage of tumor cells is 10% or less should beinterpreted with caution. Although variant allele fraction is providedas a percentage, this is not a quantitative test. RNA fusionsinvolving alternative partners or breakpoints outside of the targetedregions cannot be detected by this test. This test does notdistinguish between somatic and inherited variants.Tumor heterogeneity, tumor burden, specimen degradation or otherlimitations of the technology may affect the sensitivity and limit ofdetection, either broadly across the regions of interest or forspecific regions and may lead to false negative results.For tumor tissue, fixation in neutral buffered formalin or alcohol ispreferred. Decalcification agents and fixation agents containing heavymetals (e.g., B5) or harsh acid or base components (e.g., Bouin'ssolution) can inhibit PCR reactions. Peripheral blood and bone marrowaspirate specimens should be collected in EDTA.Hotspots, copy number variants and selected fusions evaluated by thisassay can aid in the diagnostic and therapeutic assessment of avariety of tumor types, including non-small cell lung cancer,melanoma, colorectal cancer, prostate cancer, breast cancer,glioblastoma, thyroid cancer and others (2-12). This panel can alsoprovide focused tumor profiling for patients with locallyadvanced/metastatic disease, who are candidates for anti-cancertherapy, to identify uncommon but targetable alterations (13, 14).Clinical and histopathological correlation required.EVALUATED GENES:Gene Transcript Exon(s)ALKT1 NM_005163 3ALK NM_004304 21-25AR NM_000044 6, 8BRAF NM_004333 11, 15CDK4 NM_000075 1PYVGV8 NM_001904 3, 7-8DDR2 NM_006182 5EGFR NM_005228 3, 7, 12, 15, 18-64MQVB3 NM_004448 8, 17-00YQGK8 NM_001982 2-3, 6, 8-9ERBB4 NM_005235 18ESR1 NM_000125 8FGFR1 NM_023110 12-14, 16-28AGJX0 NM_000141 7-9, 12, 67KTBK5 NM_000142 7, 9, 14, 97MVB38 NM_002067 4, 5GNAQ NM_002072 4, 5GNAS NM_080425 8H3-3A NM_002107 2H3-3B NM_005324 2HRAS NM_005343 2,3IDH1 NM_005896 4IDH2 NM_002168 4JAK1 NM_002227 14-16JAK2 NM_004972 14JAK3 NM_000215 11-12, 15KIT NM_000222 8-11, 13, 17KRAS NM_033360 2-5LJJ9I7 NM_002755 2-3, 0JWU7Z3 NM_030662 2MET NM_000245 14, 16, 19MTOR NM_004958 30, 39-40, 43, 47, 53NRAS NM_002524 2-4PDGFRA NM_006206 12, 14, 29JRA6LE NM_006218 2, 5-6, 8, 10, 14, 19, 21RAF1 NM_002880 7, 12RET NM_020975 11, 13, 15-16ROS1 NM_002944 36, 38SMO NM_005631 4, 6, 8-9TERT NM_198253 KsnwjcbfTH05 NM_000546 5, 7, 8*Only hotspots within designated exons are covered, full exons are notsequenced.Genes reported for copy number gains: ALK, AR BRAF, CCND1, CDK4, CDK6,EGFR, ERBB2, FGFR1, FGFR2, FGFR3, FGFR4, KIT, KRAS, MET, MYC, MYCN,PDGFRA, TLU7XDMmxpspv detected in RNA:Gene Detected FusionsABL1 EML1::QIE6ZMU0 MAGI3::CMR7FJZ A2M::ALK, ACTG2::ALK, ALK::PTPN3, ATIC::ALK, V1wkj86::ALK, CARS::ALK, CLIP4::ALK, CLTC::ALK, DCTN1::ALK, EML4::ALK, GMO1DOE4::ALK, HIP1::ALK, KIF5B::ALK, KLC1::ALK, MEMO1::ALK, NCOA1::ALK, YSTKG0X::ALK, RANBBP2::ALK, FAX99V7_USF05H::ALK, SMEK2::ALK, STRN::ALK, TFG::ALK, TPM1::ALK, TPM3::ALK, TPM4::ALK, TPR::ALK, TRAF1::ALK, VCL::ALKAXL ROMERO::MBIPBRAF AGTRAP:BRAF, AKAP9::BRAF, CDC27::BRAF, UTK553J::BRAF, FCHSD1::BRAF, MXCF0175::BRAF, PAPSS1::BRAF, NQV32X9::BRAF, SND1::BRAF, HZK4LG8::BRAF, TRIM24::BRAFEGFR EGFR vIII transcriptERBB2 WIPF2::PAIA8YJE JGL66M7:ERG, TMPRSS2:ERGFGFR1 BAG4::FGFR1, ERLIN2::FGFR1, FGFR1::TSHQ6ULEI5 FGFR2::AFF3, FGFR2::BICC1, FGFR2::CASP7, FGFR2::CIT, FGFR2::CRTJ6771_RVLS4, FGFR2::MGEA5, FGFR2::OFD1, FGFR2::TACC1, VRQ45L0::ENPH4CIRY7 FGFR3::AES, FGFR3::VOOOW9G0, FGFR3::ELAVL3, FGFR3::ZVCS2SLY MET Exon 14 Skipping, ETDZE6K0::MET, L1ytk26::MET, CAPZA2::MET, OXR1::MET, TFG::MET, TPR::MET, PTPRZ1::METNTRK1 BCAN::NTRK1, CD74::NTRK1, REX::NTRK1, AYV7WR7::NTRK1, LMNA::NTRK1, MPRIP::NTRK1, NFASC::NTRK1, NTRK1::EFJR7V3, SHY054::NTRK1, SQSTM1::NTRK1, SSBP2::NTRK1, TFG::NTRK1, TPM3::NTRK1, TPR::WVRO3RNGP1 AFAP1::NTRK2, AGBL4::NTRK2, NACC2::NTRK2, QKI::NTRK2, SQSTM1::NTRK2, TRIM24::NTRK2, VCL::QIQL1BSAR4 BTBD1::NTRK3, COX5A::NTRK3, ETV6::BKVT5PSNEKT SCAF11::PDGFRAPPARG PAX8::PPARGRAF1 K1VVHH1::RAF1, ESRP1::STC2ZWUZ F40ngr89::RELARET ACBD5::RET, AFAP1::RET, AKAP13::RET, CCDC6::RET, CUX1::RET, ERC1::RET, FKBP15::RET, GOLGA5::RET, HOOK3::RET, LYWH4732::RET, KIF5B::RET, KTN1::RET, NCOA4::RET, PCM1::RET, ZGQCR7H::RET, RUFY2::RET, MFFLH0W::RET, ZYP7KA1::RET, TRIM24::RET, TRIM27::RET, TRIM33::RETROS1 CCDC6:ROS1, CD74::ROS1, CEP85L::ROS1, CLIP1::ROS1, CLTC::ROS1, ERC1::ROS1, EZR::ROS1, GOPC::ROS1, HLA_A::ROS1, KDELR2::ROS1, XQSN7904::ROS1, LRIG3::ROS1, MSN::ROS1, MYO5A::ROS1, PPFIBP1::ROS1, PWWP2A::ROS1, SDC4::ROS1, CKK89Q0::ROS1, TFG::ROS1, TPM3::ROS1, ZCCHC8::AMX5GFGBBF8 TMPRSS2::ERG, TMPRSS2::ETV1, TMPRSS2::ETV4, TMPRSS2::CSH0HNQQADBYVU:1) Calderon MM, et al. Standards and Guidelines for the Interpretation andReporting of Sequence Variants in Cancer: A Joint ConsensusRecommendation of the Association for Molecular Pathology, [facility] of Clinical Oncology, and College of [place] Pathologists. JMol Diagn. 2017 Mar;19(1):4-23. doi: 10.1016/j.jmoldx.2016.10.002.PMID: 70047297; PMCID: MVF3146742.2) Steven-Amy C, Lazaro SA, Leo AM. Recurrent gene fusions inprostate cancer. [place] Rev Cancer. 2008 Sep;8(7):497-511. doi:10.1038/nhv8522. Epub 2007Sep 12. PMID: 49960154; PMCID: TKT1562014.3) Brant SC, Fady LA. The genomic landscape of prostate cancer.Front Endocrinol ([facility]). 2011August 09;3:69. doi:10.3389/fendo.2012.54212. PMID: 49574141; GFJ7014641.4) Dwaine C, et al. Breast Cancer Genomics: Primary and Most CommonMetastases. Cancers ([place]). 2021Sep 14;14(13):3046. doi:10.3390/iqkvrrb18134857. PMID: 10755761; PMCID: YIY8829071.5) Venice R, Urbano ALCARAZJ, CJ. Principal Software Architect Oncogenes but Not as We KnowThem: Targetable Fusion Genes in Breast Cancer. Cancer Discov. 2018Mar;8(3):272-275. doi: 10.9648/6421-1800.CD-18-0091. PMID: 70214881;PMCID: YGF4252387.6) Gera A, Krystian J, Cristobal JW, Serafin N, Chidi T, Garett CS. The GenomicLandscape of Thyroid Cancer Tumourigenesis and Implications forImmunotherapy. Cells. 2020July 25;10(5):1082. doi:10.3390/oxsca68566079. PMID: 67982753; PMCID: QWM8615191.7) Latesha GALARZA, et al. Molecular Biomarkers for the Evaluation ofColorectal Cancer: Guideline From the [place] Society for ClinicalPathology, College of [place] Pathologists, Association for MolecularPathology, and the [place] Society of Clinical Oncology. J ClinOncol. 2016July 25;35(13):3832-6355. doi: 10.1200/JCO.2016.71.9807.Epub 2016May 02. PMID: 13676955.8) Margarita ROJAS, et al. Updated Molecular Testing Guideline for theSelection of Lung Cancer Patients for Treatment With Targeted TyrosineKinase Inhibitors: Guideline From the College of AmericanPathologists, the International Association for the Study of LungCancer, and the Association for Molecular Pathology. Arch Pathol LabMed. 2018 May;142(3):321-346. doi: 10.5858/arpa.5585-7045-BZ. Hcai5337 Apr 17. PMID: 42757222.9) Cancer Genome [place] Research Network. Comprehensive genomiccharacterization defines human glioblastoma genes and core pathways.Nature. 2007Jan 16;455(5514):1061-8. doi: 10.1038/ypjerw58891. Asth6467 Nov 28. Erratum in: Nature. 2012May 24;494(0011):506. PMID:21249148; PMCID: LZH4131475.10) Alina Herrera. Glioblastoma Genomics: A Very ComplicatedStory. In: Mtz S, food expeditor. Glioblastoma [Internet].[place] ([place]): [employer]; 2016Dec 21. Chapter 1. PMID:63754903.11) June Duran Vivienne N, Sherrie Arita. Melanoma genomics: a jffgt-ge-ybi-artreview of practical clinical applications. Br J Dermatol. ;185(2):272-281. doi: 10.1111/bjd.46760. Epub 2020Aug 30. PMID:12591956.12) Gita L, Dominguez DE. An update on molecular genetics ofgastrointestinal stromal tumours. J Clin Pathol. ;59(6):557-63. doi: 10.1136/jcp.2005.945167. PMID: 13232634; PMCID:JMM9797850.13) Jon ER, Dulce M, Jordan PJB, Belkis TL, Maryjane LL. Molecularprofiling for precision cancer therapies. Genome Med. 2019;12(1):8. doi: 10.1186/t80970-689-9407-1. PMID: 26083903; PMCID:GYX3182802.14) John Martinez et al. Somatic Genomic Testing in Patients WithMetastatic or Advanced Cancer: ASCO Provisional Clinical Opinion. JClin Oncol. 2021Jul 04;40(11):1989-7608. doi: 10.1200/JCO.21.87803.Epub 2021May 13. Erratum in: J Clin Oncol. 2021Sep 13;40(18):2068.PMID: 15718522.15) John Martinez et al. OncoKB: OncoKB: A Precision OncologyKnowledge Base. JCO Precis Oncol. 2017 Sep;2017:PO.17.57619. doi:10.1200/PO.17.70918. Epub 2016August 09. PMID: 89769146; PMCID:DPY7953006.DISCLAIMER:This test was developed and its performance characteristics determinedby [facility]. Ithas not been cleared or approved by the FDA. [facility] is regulated under CLIAas certified to perform high-complexity testing. This test is used forclinical purposes. It should not be regarded as investigational or forresearch.Test performed at [facility], [address] [place] [address]. CLIA Number: [id number] performed by Mignon Luciano MD Performed By: #### T OPTO ####CLARITY ILLUMINA LIMSCLIA [id number] [place] [address] [place] TYPE + SCREENon 08-28-2024 ABO B Normal [facility] Comment on above: Order Comment: Speci men Type: BLOOD SPECIMENOrdering Facility: [facility] Address: [address] [place] [address] Performed By: #### T SCR ####EDEN BLOOD BANKCLIA [id number] [place] [address] [place] Rh Nom (Bld) Positive [facility] Comment on above: Order Comment: Speci men Type: BLOOD SPECIMENOrdering Facility: [facility] Address: [address] [place] [address] Performed By: #### T SCR ####EDEN BLOOD BANKCLIA [id number] [place] [address] [place] TYPE AND SCREEN EXPIRATION 08/31/2024 23:59 Normal [facility] Comment on above: Order Comment: Speci men Type: BLOOD SPECIMENOrdering Facility: [facility] Address: [address] [place] [address] Performed By: #### T SCR ####EDEN BLOOD BANKCLIA [id number] [place] [address] [place] CNPNon 08-22-2024 CNPN Normal [facility] CNDSon 08-21-2024 CNDS [facility] CONSULT PROGon 08-21-2024 CONSULT PROG [facility] CONSULT PROG [facility] THERAPY NTon 08-21-2024 THERAPY NT [facility] CASE [facility] Auto (Bld)on 08-20 Erythrocyte distribution width (RBC) [Ratio] 13.0 % Normal 11.5-15.0 [facility] Comment on above: Order Comment: Speci men Type: BLOOD SPECIMENOrdering Facility: [facility] Address: [address] [place] [address] Performed By: #### 5 8410-2 ####[facility] LABORATORYCLIA [id number] [address] Hematocrit (Bld) [Volume fraction] 33.6 % Low 36.0-46.0 [facility] Comment on above: Order Comment: Speci men Type: BLOOD SPECIMENOrdering Facility: [facility] Address: [address] [place] [address] Performed By: #### 5 8410-2 ####[facility] LABORATORYCLIA [id number] [address] Hemoglobin (Bld) [Mass/Vol] 11.2 g/dL Low 11.5-15.5 [facility] Comment on above: Order Comment: Speci men Type: BLOOD SPECIMENOrdering Facility: [facility] Address: [address] [place] [address] Performed By: #### 5 8410-2 ####[facility] LABORATORYCLIA [id number] [address] MCH (RBC) [Entitic mass] 33.2 pg Normal 26.0-34.0 [facility] Comment on above: Order Comment: Speci men Type: BLOOD SPECIMENOrdering Facility: [facility] Address: [address] [place] [address] Performed By: #### 5 8410-2 ####[facility] LABORATORYCLIA [id number] [address] [place] MCHC (RBC) [Mass/Vol] 33.3 g/dL Normal 30.5-36.0 [facility] Comment on above: Order Comment: Speci men Type: BLOOD SPECIMENOrdering Facility: [facility] Address: [address] [place] [address] Performed By: #### 5 8410-2 ####[facility] LABORATORYCLIA [id number] [place] [address] [place] MCV (RBC) [Entitic vol] 99.7 fL Normal 80.0-100.0 [facility] Comment on above: Order Comment: Speci men Type: BLOOD SPECIMENOrdering Facility: [facility] Address: [address] [place] [address] Performed By: #### 5 8410-2 ####[facility] LABORATORYCLIA [id number] [place] [address] [place] Nucleated RBC (Bld) [#/Vol] 10*3/uL Normal <0.01 [facility] Comment on above: Order Comment: Speci men Type: BLOOD SPECIMENOrdering Facility: [facility] Address: [address] [place] [address] Performed By: #### 5 8410-2 ####EDEN LABORATORYCLIA [id number] [address] [place] Platelet mean volume (Bld) [Entitic vol] 9.5 fL Normal 9.0-12.7 [facility] Comment on above: Order Comment: Speci men Type: BLOOD SPECIMENOrdering Facility: [facility] Address: [address] [place] [address] Performed By: #### 5 8410-2 ####[facility] LABORATORYCLIA [id number] [place] [address] [place] Platelets (Bld) [#/Vol] 235 10*3/uL Normal 150-400 [facility] Comment on above: Order Comment: Speci men Type: BLOOD SPECIMENOrdering Facility: [facility] Address: [address] [place] [address] Performed By: #### 5 8410-2 ####EDEN LABORATORYCLIA [id number] [place] [address] [place] RBC (Bld) [#/Vol] 3.37 10*6/uL Low 3.90-5.20 [facility] Comment on above: Order Comment: Speci men Type: BLOOD SPECIMENOrdering Facility: [facility] Address: [address] [place] [address] Performed By: #### 5 8410-2 ####EDEN LABORATORYCLIA [id number] [place] [address] [place] WBC (Bld) [#/Vol] 5.29 10*3/uL Normal 3.70-11.00 [facility] Comment on above: Order Comment: Speci men Type: BLOOD SPECIMENOrdering Facility: [facility] Address: [address] [place] [address] Performed By: #### 5 8410-2 ####EDEN LABORATORYCLIA [id number] [place] [id number] [place] CONSULTon 08-20-2024 CONSULT Normal [facility] CONSULT PROGon 08-20-2024 CONSULT PROG Normal [facility] Comprehensive metabolic 2000 panelon 08-20-2024 Albumin [Mass/Vol] 3.8 g/dL Low 3.9-4.9 [facility] Comment on above: Order Comment: Speci men Type: BLOOD SPECIMENOrdering Facility: [facility] Address: [address] [place] [address] Performed By: #### 1 9123-9, 2777-, 01327-9 ####EDEN LABORATORYCLIA [id number] [place] [id number] [place] ALP [Catalytic activity/Vol] 61 U/L Normal 34-123 [facility] Comment on above: Order Comment: Speci men Type: BLOOD SPECIMENOrdering Facility: [facility] Address: [address] [place] [address] Performed By: #### 1 9123-9, 2777, 93333-9 ####EDEN LABORATORYCLIA [id number] [place] [address] [place] ALT [Catalytic activity/Vol] 7 U/L Normal 7-38 [facility] Comment on above: Order Comment: Speci men Type: BLOOD SPECIMENOrdering Facility: [facility] Address: [address] [place] [address] Performed By: #### 1 9123-9, 2777, 14749-8 ####[facility] LABORATORYCLIA [id number] [place] [address] [place] Anion gap [Moles/Vol] 12 mmol/L Normal 8-15 [facility] Comment on above: Order Comment: Speci men Type: BLOOD SPECIMENOrdering Facility: [facility] Address: [address] [place] [address] Performed By: #### 1 9123-9, 27709-24, 31711-1 ####EMMANUEL LABORATORYCLIA [id number] [place] [id number] [place] AST [Catalytic activity/Vol] 18 U/L Normal 13-35 [facility] Comment on above: Order Comment: Speci men Type: BLOOD SPECIMENOrdering Facility: [facility] Address: [address] [place] [address] Performed By: #### 1 9123-9, 2776-03, ####EMMANUEL LABORATORYCLIA [id number] [place] [address] [place] Bilirubin [Mass/Vol] 0.3 mg/dL Normal 0.2-1.3 [facility] Comment on above: Order Comment: Speci men Type: BLOOD SPECIMENOrdering Facility: [facility] Address: [address] [place] [address] Performed By: #### 1 9123-9, 27709-24, ####EMMANUEL LABORATORYCLIA [id number] [place] [id number] [place] Calcium [Mass/Vol] 9.2 mg/dL Normal 8.5-10.2 [facility] Comment on above: Order Comment: Speci men Type: BLOOD SPECIMENOrdering Facility: [facility] Address: [address] [place] [address] Performed By: #### 1 9123-9, 27709-24, 33141-2 ####[facility] LABORATORYCLIA [id number] [place] [id number] [place] Chloride [Moles/Vol] 99 mmol/L Normal 98-107 [facility] Comment on above: Order Comment: Speci men Type: BLOOD SPECIMENOrdering Facility: [facility] Address: [address] [place] [address] Performed By: #### 1 9123-9, 2777, 45119-7 ####EMMANUEL LABORATORYCLIA [id number] [place] [id number] [place] CO2 [Moles/Vol] 27 mmol/L Normal 22-30 [facility] Comment on above: Order Comment: Speci men Type: BLOOD SPECIMENOrdering Facility: [facility] Address: [address] [place] [address] Performed By: #### 1 9123-9, 27709-24, 06670-3 ####EMMANUEL LABORATORYCLIA [id number] [place] [id number] [facility] Creatinine [Mass/Vol] 0.75 mg/dL Normal 0.58-0.96 [facility] Comment on above: Order Comment: Speci men Type: BLOOD SPECIMENOrdering Facility: [facility] Address: [address] [place] [address] Performed By: #### 1 9123-9, 27709-24, 38215-5 ####[facility] LABORATORYCLIA [id number] [address] Creatinine and Glomerular filtration rate.predicted panel (S/P/Bld) 88 mL/min/1.73m??? Normal >=60 [facility] Comment on above: Order Comment: Speci men Type: BLOOD SPECIMENOrdering Facility: [facility] Address: [address] [place] [address] Result Comment: Sana mated Glomerular Filtration Rate (eGFR) is calculated using the 2020 CKD-EPI creatinine equation. This equation utilizes serum creatinine, sex, and age as parameters. The creatinine assay has traceable calibration to isotope dilution-mass spectrometry. Refer to KDIGO guidelines for clinical interpretation. In patients with unstable renal function, e.g. those with acute kidney injury, the eGFR may not accurately reflect actual GFR. Performed By: #### 1 9123-9, 2777-1, 39454-4 ####EMMANUEL LABORATORYCLIA [id number] [place] [id number] [place] Glucose [Mass/Vol] 73 mg/dL Low 74-99 [facility] Comment on above: Order Comment: Speci men Type: BLOOD SPECIMENOrdering Facility: [facility] Address: [address] [place] [address] Result Comment: The [place] Diabetes Association (ADA) provides guidance for cutoff values for fasting glucose and random glucose. The ADA defines fasting as no caloric intake for at least 8 hours. Fasting plasma glucose results between 100 to 125 mg/dL indicate increased risk for diabetes (prediabetes).Fasting plasma glucose results greater than or equal to 126 mg/dL meet the criteria for diagnosis of diabetes. In the absence of unequivocal hyperglycemia, results should be confirmed by repeat testing. In a patient with classic symptoms of hyperglycemia or hyperglycemic crisis, random plasma glucose results greater than or equal to 200 mg/dL meet the criteria for diagnosis of diabetes.Reference: Standards of Medical Care in Diabetes 2016, [place] [employer]. Diabetes Care. 2016.39(Suppl 1). Performed By: #### 1 9123-9, 2777, 91566-3 ####[facility] LABORATORYCLIA [id number] [place] [address] [place] Potassium [Moles/Vol] 4.3 mmol/L Normal 3.7-5.1 [facility] Comment on above: Order Comment: Umesh lupis Type: BLOOD SPECIMENOrdering Facility: [facility] Address: [address] [place], [place] [id number] Performed By: #### 1 9123-9, 2777, ####[facility] LABORATORYCLIA [id number] [place] [id number] [place] Protein [Mass/Vol] 6.8 g/dL Normal 6.3-8.0 [facility] Comment on above: Order Comment: Abdouli lupis Type: BLOOD SPECIMENOrdering Facility: [facility] Address: [address] [place] [address] Performed By: #### 1 9123-9, 27709-24, 34600-1 ####[facility] LABORATORYCLIA [id number] [place] [id number] [place] Sodium [Moles/Vol] 138 mmol/L Normal 136-144 [facility] Comment on above: Order Comment: Speci men Type: BLOOD SPECIMENOrdering Facility: [facility] Address: [address] [place] [address] Performed By: #### 1 9123-9, 2776-03, ####ED[facility] LABORATORYCLIA [id number] [place] [address] [place] Urea nitrogen [Mass/Vol] 13 mg/dL Normal 7-21 [facility] Comment on above: Order Comment: Speci men Type: BLOOD SPECIMENOrdering Facility: [facility] Address: [address] [place] [address] Performed By: #### 1 9123-9, 2776-03, ####ED[facility] LABORATORYCLIA [id number] [place] [id number] [place] HISTORY PHYSICALon HISTORY PHYSICAL Normal [facility] Magnesium [facility] 08-20 Magnesium [Mass/Vol] 1.7 mg/dL Normal 1.7-2.3 [facility] Comment on above: Order Comment: Speci men Type: BLOOD SPECIMENOrdering Facility: [facility] Address: [address] [place] [address] Performed By: #### 1 9123-9, 2776-03, ####EDEN LABORATORYCLIA [id number] [place] [id number] [place] NURSING PROGon 08-20-2024 NURSING PROG Normal [facility] NUTRITIONon 08-20-2024 NUTRITION Normal [facility] Phosphate [Mass/Vol] 4.9 mg/dL High 2.7-4.8 [facility] Comment on above: Order Comment: Speci men Type: BLOOD SPECIMENOrdering Facility: [facility] Address: [address] [place] [address] Performed By: #### 1 9123-9, 27709-24, 05723-6 ####ED[facility] LABORATORYCLIA [id number] [place] [id number] [place] CBC W Auto Differential pane l (Bld)on 08-19-2024 Basophils (Bld) [#/Vol] 0.09 10*3/uL Normal <0.11 [facility] Comment on above: Order Comment: Speci men Type: BLOOD SPECIMENOrdering Facility: [facility] Address: [address] [place] [address] Performed By: #### 5 7021-8 ####EMMANUEL LABORATORYCLIA [id number] [place] [id number] [place] Basophils/100 WBC (Bld) 1.1 % Normal [facility] Comment on above: Order Comment: Speci men Type: BLOOD SPECIMENOrdering Facility: [facility] Address: [address] [place] [address] Performed By: #### 5 7021-8 ####EMMANUEL LABORATORYCLIA [id number] [place] [address] [place] Differential cell count method Nom (Bld) Auto Normal [facility] Comment on above: Order Comment: Speci men Type: BLOOD SPECIMENOrdering Facility: [facility] Address: [address] [place] [address] Performed By: #### 5 7021-8 ####EMMANUEL LABORATORYCLIA [id number] [place] [address] [place] Eosinophils (Bld) [#/Vol] 0.31 10*3/uL Normal <0.46 [facility] Comment on above: Order Comment: Speci men Type: BLOOD SPECIMENOrdering Facility: [facility] Address: [address] [place] [address] Performed By: #### 5 7021-8 ####EMMANUEL LABORATORYCLIA [id number] [place] [id number] [place] Eosinophils/100 WBC (Bld) 3.8 % Normal [facility] Comment on above: Order Comment: Speci men Type: BLOOD SPECIMENOrdering Facility: [facility] Address: [address] [place] [address] Performed By: #### 5 7021-8 ####EMMANUEL LABORATORYCLIA [id number] [place] [address] [place] Erythrocyte distribution width (RBC) [Ratio] 13.5 % Normal 11.5-15.0 [facility] Comment on above: Order Comment: Speci men Type: BLOOD SPECIMENOrdering Facility: [facility] Address: [address] [place] [address] Performed By: #### 5 7021-8 ####EMMANUEL LABORATORYCLIA [id number] [place] [address] [place] Hematocrit (Bld) [Volume fraction] 37.1 % Normal 36.0-46.0 [facility] Comment on above: Order Comment: Speci men Type: BLOOD SPECIMENOrdering Facility: [facility] Address: [address] [place] [address] Performed By: #### 5 7021-8 ####EMMANUEL LABORATORYCLIA [id number] [place] [address] [place] Hemoglobin (Bld) [Mass/Vol] 12.4 g/dL Normal 11.5-15.5 [facility] Comment on above: Order Comment: Speci men Type: BLOOD SPECIMENOrdering Facility: [facility] Address: [address] [place] [address] Performed By: #### 5 7021-8 ####EMMANUEL LABORATORYCLIA [id number] [address] [place] Immature granulocytes (Bld) [#/Vol] 0.03 10*3/uL Normal <0.10 [facility] Comment on above: Order Comment: Speci men Type: BLOOD SPECIMENOrdering Facility: [facility] Address: [address] [place] [address] Performed By: #### 5 7021-8 ####EMMANUEL LABORATORYCLIA [id number] [address] [place] Immature granulocytes/100 WBC (Bld) 0.4 % Normal [facility] Comment on above: Order Comment: Speci men Type: BLOOD SPECIMENOrdering Facility: [facility] Address: [address] [place] [address] Performed By: #### 5 7021-8 ####[facility] LABORATORYCLIA [id number] [place] [address] [place] Lymphocytes (Bld) [#/Vol] 1.26 10*3/uL Normal 1.00-4.00 [facility] Comment on above: Order Comment: Speci men Type: BLOOD SPECIMENOrdering Facility: [facility] Address: [address] [place] [address] Performed By: #### 5 7021-8 ####[facility] LABORATORYCLIA [id number] [address] [place] Lymphocytes/100 WBC (Bld) 15.6 % Normal [facility] Comment on above: Order Comment: Speci men Type: BLOOD SPECIMENOrdering Facility: [facility] Address: [address] [place] [address] Performed By: #### 5 7021-8 ####[facility] LABORATORYCLIA [id number] [address] [facility] MCH (RBC) [Entitic mass] 33.6 pg Normal 26.0-34.0 [facility] Comment on above: Order Comment: Speci men Type: BLOOD SPECIMENOrdering Facility: [facility] Address: [address] [place] [address] Performed By: #### 5 7021-8 ####[facility] LABORATORYCLIA [id number] [address] [place] MCHC (RBC) [Mass/Vol] 33.4 g/dL Normal 30.5-36.0 [facility] Comment on above: Order Comment: Speci men Type: BLOOD SPECIMENOrdering Facility: [facility] Address: [address] [place] [address] Performed By: #### 5 7021-8 ####[facility] LABORATORYCLIA [id number] [address] [place] [facility] MCV (RBC) [Entitic vol] 100.5 fL High 80.0-100.0 [facility] Comment on above: Order Comment: Speci men Type: BLOOD SPECIMENOrdering Facility: [facility] Address: [address] [place] [address] Performed By: #### 5 7021-8 ####EMMANUEL LABORATORYCLIA [id number] [place] [id number] [place] Monocytes (Bld) [#/Vol] 0.72 10*3/uL Normal <0.87 [facility] Comment on above: Order Comment: Speci men Type: BLOOD SPECIMENOrdering Facility: [facility] Address: [address] [place] [address] Performed By: #### 5 7021-8 ####EMMANUEL LABORATORYCLIA [id number] [place] [id number] [place] Monocytes/100 WBC (Bld) 8.9 % Normal [facility] Comment on above: Order Comment: Speci men Type: BLOOD SPECIMENOrdering Facility: [facility] Address: [address] [place] [address] Performed By: #### 5 7021-8 ####EMMANUEL LABORATORYCLIA [id number] [place] [address] [place] Neutrophils (Bld) [#/Vol] 5.66 10*3/uL Normal 1.45-7.50 [facility] Comment on above: Order Comment: Speci men Type: BLOOD SPECIMENOrdering Facility: [facility] Address: [address] [place] [address] Performed By: #### 5 7021-8 ####EMMANUEL LABORATORYCLIA [id number] [place] [id number] [place] Neutrophils/100 WBC (Bld) 70.2 % Normal [facility] Comment on above: Order Comment: Speci men Type: BLOOD SPECIMENOrdering Facility: [facility] Address: [address] [place] [address] Performed By: #### 5 7021-8 ####EMMANUEL LABORATORYCLIA [id number] [place] [id number] [place] Nucleated RBC (Bld) [#/Vol] 10*3/uL Normal <0.01 [facility] Comment on above: Order Comment: Speci men Type: BLOOD SPECIMENOrdering Facility: [facility] Address: [address] [place] [address] Performed By: #### 5 7021-8 ####EDEN LABORATORYCLIA [id number] [place] [id number] [place] Nucleated RBC/100 WBC (Bld) [Ratio] 0.0 /100 WBC Normal [facility] Comment on above: Order Comment: Speci men Type: BLOOD SPECIMENOrdering Facility: [facility] Address: [address] [place] [address] Performed By: #### 5 7021-8 ####EDEN LABORATORYCLIA [id number] [place] [id number] [place] Platelet mean volume (Bld) [Entitic vol] 9.7 fL Normal 9.0-12.7 [facility] Comment on above: Order Comment: Speci men Type: BLOOD SPECIMENOrdering Facility: [facility] Address: [address] [place] [address] Performed By: #### 5 7021-8 ####ED[facility] LABORATORYCLIA [id number] [place] [id number] [place] Platelets (Bld) [#/Vol] 277 10*3/uL Normal 150-400 [facility] Comment on above: Order Comment: Speci men Type: BLOOD SPECIMENOrdering Facility: [facility] Address: [address] [place] [address] Performed By: #### 5 7021-8 ####EDEN LABORATORYCLIA [id number] [place] [id number] [place] RBC (Bld) [#/Vol] 3.69 10*6/uL Low 3.90-5.20 [facility] Comment on above: Order Comment: Speci men Type: BLOOD SPECIMENOrdering Facility: [facility] Address: [address] [place] [address] Performed By: #### 5 7021-8 ####EDEN LABORATORYCLIA [id number] [place] [id number] [place] WBC (Bld) [#/Vol] 8.07 10*3/uL Normal 3.70-11.00 [facility] Comment on above: Order Comment: Speci men Type: BLOOD SPECIMENOrdering Facility: [facility] Address: [address] [place] [address] Performed By: #### 5 7021-8 ####ED[facility] LABORATORYCLIA [id number] [place] [id number] [place] CONSULTon 08-19-2024 CONSULT Normal [facility] CT ABD/PEL W IVCONon 025 CT ABD/PEL W IVCON Normal [facility] Comprehensive metabolic 2000 panelon 08-19-2024 Albumin [Mass/Vol] 4.3 g/dL Normal 3.9-4.9 [facility] Comment on above: Order Comment: Speci men Type: BLOOD SPECIMENOrdering Facility: [facility] Address: [address] [place] [address] Performed By: #### 3 040-3, , ####EDEN LABORATORYCLIA [id number] [place] [id number] [place] ALP [Catalytic activity/Vol] 72 U/L Normal 34-123 [facility] Comment on above: Order Comment: Speci men Type: BLOOD SPECIMENOrdering Facility: [facility] Address: [address] [place] [address] Performed By: #### 3 040-3, , ####EDEN LABORATORYCLIA [id number] [place] [id number] [place] ALT [Catalytic activity/Vol] 8 U/L Normal 7-38 [facility] Comment on above: Order Comment: Speci men Type: BLOOD SPECIMENOrdering Facility: [facility] Address: [address] [place] [address] Performed By: #### 3 040-3, , ####EDEN LABORATORYCLIA [id number] [place] [id number] [place] Anion gap [Moles/Vol] 15 mmol/L Normal 8-15 [facility] Comment on above: Order Comment: Speci men Type: BLOOD SPECIMENOrdering Facility: [facility] Address: [address] [place] [address] Performed By: #### 3 040-3, , ####EMMANUEL LABORATORYCLIA [id number] [place] [address] [place] AST [Catalytic activity/Vol] 27 U/L Normal 13-35 [facility] Comment on above: Order Comment: Speci men Type: BLOOD SPECIMENOrdering Facility: [facility] Address: [address] [address] Performed By: #### 3 040-3, , ####EMMANUEL LABORATORYCLIA [id number] [place] [address] [place] Bilirubin [Mass/Vol] 0.3 mg/dL Normal 0.2-1.3 [facility] Comment on above: Order Comment: Speci men Type: BLOOD SPECIMENOrdering Facility: [facility] Address: [address] [place] [address] Performed By: #### 3 040-3, , ####EMMANUEL LABORATORYCLIA [id number] [place] [id number] [place] Calcium [Mass/Vol] 9.7 mg/dL Normal 8.5-10.2 [facility] Comment on above: Order Comment: Speci men Type: BLOOD SPECIMENOrdering Facility: [facility] Address: [address] [place] [address] Performed By: #### 3 040-3, , ####EMMANUEL LABORATORYCLIA [id number] [place] [id number] [place] Chloride [Moles/Vol] 95 mmol/L Low 98-107 [facility] Comment on above: Order Comment: Speci men Type: BLOOD SPECIMENOrdering Facility: [facility] Address: [facility] [address] [address] Performed By: #### 3 040-3, , ####EDEN LABORATORYCLIA [id number] [place] [address] [place] CO2 [Moles/Vol] 27 mmol/L Normal 22-30 [facility] Comment on above: Order Comment: Speci men Type: BLOOD SPECIMENOrdering Facility: [facility] Address: [address] [place] [address] Performed By: #### 3 040-3, , ####EDEN LABORATORYCLIA [id number] [place] [id number] [place] Creatinine [Mass/Vol] 0.74 mg/dL Normal 0.58-0.96 [facility] Comment on above: Order Comment: Speci men Type: BLOOD SPECIMENOrdering Facility: [facility] Address: [address] [place] [address] Performed By: #### 3 040-3, , ####EDEN LABORATORYCLIA [id number] [place] [id number] [place] Creatinine and Glomerular filtration rate.predicted panel (S/P/Bld) 90 mL/min/1.73m??? Normal >=60 [facility] Comment on above: Order Comment: Speci men Type: BLOOD SPECIMENOrdering Facility: [facility] Address: [address] [place] [address] Result Comment: Sana mated Glomerular Filtration Rate (eGFR) is calculated using the 2020 CKD-EPI creatinine equation. This equation utilizes serum creatinine, sex, and age as parameters. The creatinine assay has traceable calibration to isotope dilution-mass spectrometry. Refer to KDIGO guidelines for clinical interpretation. In patients with unstable renal function, e.g. those with acute kidney injury, the eGFR may not accurately reflect actual GFR. Performed By: #### 3 040-3, , ####EDEN LABORATORYCLIA [id number] [place] [address] [place] Glucose [Mass/Vol] 97 mg/dL Normal 74-99 [facility] Comment on above: Order Comment: Speci men Type: BLOOD SPECIMENOrdering Facility: [facility] Address: [address] [place] [address] Result Comment: The [place] Diabetes Association (ADA) provides guidance for cutoff values for fasting glucose and random glucose. The ADA defines fasting as no caloric intake for at least 8 hours. Fasting plasma glucose results between 100 to 125 mg/dL indicate increased risk for diabetes (prediabetes).Fasting plasma glucose results greater than or equal to 126 mg/dL meet the criteria for diagnosis of diabetes. In the absence of unequivocal hyperglycemia, results should be confirmed by repeat testing. In a patient with classic symptoms of hyperglycemia or hyperglycemic crisis, random plasma glucose results greater than or equal to 200 mg/dL meet the criteria for diagnosis of diabetes.Reference: Standards of Medical Care in Diabetes 2016, [place] [employer]. Diabetes Care. 2016.39(Suppl 1). Performed By: #### 3 040-3, , ####EMMANUEL LABORATORYCLIA [id number] [place] [id number] [place] Potassium [Moles/Vol] 3.6 mmol/L Low 3.7-5.1 [facility] Comment on above: Order Comment: Speci men Type: BLOOD SPECIMENOrdering Facility: [facility] Address: [address] [place] [address] Performed By: #### 3 040-3, , ####EMMANUEL LABORATORYCLIA [id number] [place] [id number] [place] Protein [Mass/Vol] 7.9 g/dL Normal 6.3-8.0 [facility] Comment on above: Order Comment: Speci men Type: BLOOD SPECIMENOrdering Facility: [facility] Address: [address] [place] [address] Performed By: #### 3 040-3, , ####EMMANUEL LABORATORYCLIA [id number] [place] [id number] [place] Sodium [Moles/Vol] 137 mmol/L Normal 136-144 [facility] Comment on above: Order Comment: Speci men Type: BLOOD SPECIMENOrdering Facility: [facility] Address: [address] [place] [id number] Performed By: #### 3 040-3, , ####EMMANUEL LABORATORYCLIA [id number] [place] [id number] [place] Urea nitrogen [Mass/Vol] 12 mg/dL Normal 7-21 [facility] Comment on above: Order Comment: Speci men Type: BLOOD SPECIMENOrdering Facility: [facility] Address: [address] [place] [address] Performed By: #### 3 040-3, , ####EMMANUEL LABORATORYCLIA [id number] [place] [id number] [place] ED NOTEon 08-19-2024 ED NOTE HNO ID: [id number] Author: DAREN HERNANDEZ RN Service: ? Author Type: Registered Nurse Type: ED Notes Filed: 08/19/2024 15:00 Note Text: Report to REAL [place] Normal [facility] ED NOTE HNO ID: [id number] Author: PRISCILLA TAN RN Service: Nursing Author Type: Registered Nurse Type: ED Notes Filed: 08/19/2024 09:52 Note Text: Sts pain severe and unable to control at home. Sts had CT on 08/14. Unable to reach surgeon by phone. Normal [facility] ED PROV NOTEon 08-19-2024 ED PROV NOTE Normal [facility] ED Triage Noteon 08-19-2024 ED Triage Note Normal [facility] Lipase SerPl-cCncon 08-20-19 25 Lipase [Catalytic activity/Vol] 14 U/L Low 16-61 [facility] Comment on above: Order Comment: Speci men Type: BLOOD SPECIMENOrdering Facility: [facility] Address: [address] [place] [id number] Performed By: #### 3 040-3, , ####EMMANUEL LABORATORYCLIA [id number] [place] [id number] [place] Magnesium SerPl-mCncon 08-19 Magnesium [Mass/Vol] 1.8 mg/dL Normal 1.7-2.3 [facility] Comment on above: Order Comment: Speci men Type: BLOOD SPECIMENOrdering Facility: [facility] Address: [address] [place] [address] Performed By: #### 3 040-3, 59046-5, 59879-5 ####EDEN LABORATORYCLIA [id number] [place] [id number] [place] Urinalysis complete panel (U )on 08-19-2024 Bilirubin Ql (U) Negative Normal Negative [facility] Comment on above: Order Comment: Speci men Type: URINE SPECIMENOrdering Facility: [facility] Address: [address] [place] [address] Performed By: #### 2 4356-8 ####EDEN LABORATORYCLIA [id number] [place] [address] [place] Clarity (Unsp spec) Clear Normal Clear [facility] Comment on above: Order Comment: Speci men Type: URINE SPECIMENOrdering Facility: [facility] Address: [address] [place] [address] Performed By: #### 2 4356-8 ####EDEN LABORATORYCLIA [id number] [address] [place] Color (U) Light Yellow Normal Yellow [facility] Comment on above: Order Comment: Speci men Type: URINE SPECIMENOrdering Facility: [facility] Address: [address] [place] [address] Performed By: #### 2 4356-8 ####EDEN LABORATORYCLIA [id number] [place] [address] [place] Epithelial cells LM.HPF (Urine sed) [#/Area] Few Normal [facility] Comment on above: Order Comment: Speci men Type: URINE SPECIMENOrdering Facility: [facility] Address: [address] [place] [address] Performed By: #### 2 4356-8 ####EDEN LABORATORYCLIA [id number] [place] [id number] [place] Glucose Test strip (U) [Mass/Vol] Negative Normal Trace, Negative [facility] Comment on above: Order Comment: Speci men Type: URINE SPECIMENOrdering Facility: [facility] Address: [address] [place] [address] Performed By: #### 2 4356-8 ####[facility] LABORATORYCLIA [id number] [place] [address] [place] Hemoglobin Ql (U) Negative Normal Negative, Trace [facility] Comment on above: Order Comment: Speci men Type: URINE SPECIMENOrdering Facility: [facility] Address: [address] [place] [address] Performed By: #### 2 4356-8 ####[facility] LABORATORYCLIA [id number] [place] [address] [place] Ketones Ql (U) 1+ Abnormal Negative, Trace [facility] Comment on above: Order Comment: Speci men Type: URINE SPECIMENOrdering Facility: [facility] Address: [address] [place], [place] [address] Performed By: #### 2 4356-8 ####[facility] LABORATORYCLIA [id number] [place] [address] [place] Leukocyte esterase Test strip Ql (U) Negative Normal Negative, 25 Adeola/uL [facility] Comment on above: Order Comment: Speci men Type: URINE SPECIMENOrdering Facility: [facility] Address: [address] [place] [address] Performed By: #### 2 4356-8 ####[facility] LABORATORYCLIA [id number] [place] [address] [place] Nitrite Ql (U) Negative Normal Negative [facility] Comment on above: Order Comment: Speci men Type: URINE SPECIMENOrdering Facility: [facility] Address: [address] [place] [address] Performed By: #### 2 4356-8 ####[facility] LABORATORYCLIA [id number] [address] [place] pH (U) 6.5 [pH] Normal 5.0-8.0 [facility] Comment on above: Order Comment: Speci men Type: URINE SPECIMENOrdering Facility: [facility] Address: [address] [place] [address] Performed By: #### 2 4356-8 ####[facility] LABORATORYCLIA [id number] [place] [address] [place] Protein (U) [Mass/Vol] 1+ Abnormal Trace , Negative [facility] Comment on above: Order Comment: Speci men Type: URINE SPECIMENOrdering Facility: [facility] Address: [address] [place] [address] Performed By: #### 2 4356-8 ####[facility] LABORATORYCLIA [id number] [place] [address] [place] RBC LM.HPF (Urine sed) [#/Area] 0-3 /HPF Normal 0-3 /HPF [facility] Comment on above: Order Comment: Speci men Type: URINE SPECIMENOrdering Facility: [facility] Address: [address] [place] [address] Performed By: #### 2 4356-8 ####[facility] LABORATORYCLIA [id number] [address] [place] Specific gravity (U) [Rel density] >1.050 High 1.005-1.03 0 [facility] Comment on above: Order Comment: Speci men Type: URINE SPECIMENOrdering Facility: [facility] Address: [address] [place] [address] Performed By: #### 2 4356-8 ####[facility] LABORATORYCLIA [id number] [address] [place] Urobilinogen Ql (U) Normal Normal Normal [facility] Comment on above: Order Comment: Speci men Type: URINE SPECIMENOrdering Facility: [facility] Address: [address] [place] [address] Performed By: #### 2 4356-8 ####[facility] LABORATORYCLIA [id number] [address] [place] WBC LM.HPF (Urine sed) [#/Area] 0-5 /HPF Normal 0-5 /HPF [facility] Comment on above: Order Comment: Speci men Type: URINE SPECIMENOrdering Facility: [facility] Address: [address] [place] [address] Performed By: #### 2 4356-8 ####[facility] LABORATORYCLIA [id number] [place] [address] [place] CBC W Auto Differential pane l (Bld)on 08-14-2024 Basophils (Bld) [#/Vol] 0.07 10*3/uL Normal <0.11 [facility] Comment on above: Order Comment: Speci men Type: BLOOD SPECIMENOrdering Facility: [facility] Address: [address] [place] [address] Performed By: #### 5 7021-8 ####[facility] [id number] [place] [address] [place] Basophils/100 WBC (Bld) 1.0 % Normal [facility] Comment on above: Order Comment: Speci men Type: BLOOD SPECIMENOrdering Facility: [facility] Address: [address] [place] [address] Performed By: #### 5 7021-8 ####[facility] [id number] [place] [address] [place] Differential cell count method Nom (Bld) Auto Normal [facility] Comment on above: Order Comment: Speci men Type: BLOOD SPECIMENOrdering Facility: [facility] Address: [address] [place] [address] Performed By: #### 5 7021-8 ####[facility] CENTERLIA [id number] [place] [address] [place] Eosinophils (Bld) [#/Vol] 0.50 10*3/uL High <0.46 [facility] Comment on above: Order Comment: Speci men Type: BLOOD SPECIMENOrdering Facility: [facility] Address: [address] [place] [address] Performed By: #### 5 7021-8 ####[facility] BISHNUWKALIELIA [id number] [place] [address] [place] Eosinophils/100 WBC (Bld) 7.3 % Normal [facility] Comment on above: Order Comment: Speci men Type: BLOOD SPECIMENOrdering Facility: [facility] Address: [address] [place] [address] Performed By: #### 5 7021-8 ####[facility]OSPITALKALIELIA [id number] [place] [address] [place] Erythrocyte distribution width (RBC) [Ratio] 14.2 % Normal 11.5-15.0 [facility] Comment on above: Order Comment: Speci men Type: BLOOD SPECIMENOrdering Facility: [facility] Address: [address] [place] [address] Performed By: #### 5 7021-8 ####[facility] [id number] [place] [address] [place] Hematocrit (Bld) [Volume fraction] 33.9 % Low 36.0-46.0 [facility] Comment on above: Order Comment: Speci men Type: BLOOD SPECIMENOrdering Facility: [facility] Address: [address] [place] [address] Performed By: #### 5 7021-8 ####[facility] HOSPITALKALIELIA [id number] [place] [address] [place] Hemoglobin (Bld) [Mass/Vol] 11.4 g/dL Low 11.5-15.5 [facility] Comment on above: Order Comment: Speci men Type: BLOOD SPECIMENOrdering Facility: [facility] Address: [address] [place] [address] Performed By: #### 5 7021-8 ####[facility] HOS[facility]ITALNCLIA [id number] [place] [address] [place] Immature granulocytes (Bld) [#/Vol] 10*3/uL Normal <0.10 [facility] Comment on above: Order Comment: Speci men Type: BLOOD SPECIMENOrdering Facility: [facility] Address: [address] [place] [address] Performed By: #### 5 7021-8 ####[facility] [id number] [place] [address] [place] Immature granulocytes/100 WBC (Bld) 0.1 % Normal [facility] Comment on above: Order Comment: Speci men Type: BLOOD SPECIMENOrdering Facility: [facility] Address: [address] [place] [address] Performed By: #### 5 7021-8 ####[facility] [id number] [place] [address] [place] Lymphocytes (Bld) [#/Vol] 2.00 10*3/uL Normal 1.00-4.00 [facility] Comment on above: Order Comment: Speci men Type: BLOOD SPECIMENOrdering Facility: [facility] Address: [address] [place] [address] Performed By: #### 5 7021-8 ####[facility] [id number] [place] [address] [place] Lymphocytes/100 WBC (Bld) 29.3 % Normal [facility] Comment on above: Order Comment: Speci men Type: BLOOD SPECIMENOrdering Facility: [facility] Address: [address] [place] [address] Performed By: #### 5 7021-8 ####[facility] [id number] [place] [address] [place] MCH (RBC) [Entitic mass] 34.4 pg High 26.0-34.0 [facility] Comment on above: Order Comment: Speci men Type: BLOOD SPECIMENOrdering Facility: [facility] Address: [address] [place] [address] Performed By: #### 5 7021-8 ####[facility] BISHNUCRUZITO [id number] [place] [address] [place] MCHC (RBC) [Mass/Vol] 33.6 g/dL Normal 30.5-36.0 [facility] Comment on above: Order Comment: Speci men Type: BLOOD SPECIMENOrdering Facility: [facility] Address: [address] [place] [address] Performed By: #### 5 7021-8 ####[facility]OS[facility]ITALNCHUNTS[facility] [id number] [place] [address] [place] MCV (RBC) [Entitic vol] 102.4 fL High 80.0-100.0 [facility] Comment on above: Order Comment: Speci men Type: BLOOD SPECIMENOrdering Facility: [facility] Address: [address] [place] [address] Performed By: #### 5 7021-8 ####[facility] [id number] [place] [address] [place] Monocytes (Bld) [#/Vol] 0.51 10*3/uL Normal <0.87 [facility] Comment on above: Order Comment: Speci men Type: BLOOD SPECIMENOrdering Facility: [facility] Address: [address] [place] [address] Performed By: #### 5 7021-8 ####[facility] HOSPITALNCLI [id number] [place] [address] [place] Monocytes/100 WBC (Bld) 7.5 % Normal [facility] Comment on above: Order Comment: Speci men Type: BLOOD SPECIMENOrdering Facility: [facility] Address: [address] [place] [address] Performed By: #### 5 7021-8 ####[facility] MILLWNCLIA [id number] [place] [address] [place] Neutrophils (Bld) [#/Vol] 3.73 10*3/uL Normal 1.45-7.50 [facility] Comment on above: Order Comment: Speci men Type: BLOOD SPECIMENOrdering Facility: [facility] Address: [address] [place] [address] Performed By: #### 5 7021-8 ####[facility]UN[facility] GORDAWSDLIA [id number] [place] [address] [place] Neutrophils/100 WBC (Bld) 54.8 % Normal [facility] Comment on above: Order Comment: Speci men Type: BLOOD SPECIMENOrdering Facility: [facility] Address: [address] [place] [address] Performed By: #### 5 7021-8 ####[facility]ENTERA [id number] [place] [address] [place] Nucleated RBC (Bld) [#/Vol] 10*3/uL Normal <0.01 [facility] Comment on above: Order Comment: Speci men Type: BLOOD SPECIMENOrdering Facility: [facility] Address: [address] [place] [address] Performed By: #### 5 7021-8 ####[facility] CENTERLIA [id number] [place] [address] [place] Nucleated RBC/100 WBC (Bld) [Ratio] 0.0 /100 WBC Normal [facility] Comment on above: Order Comment: Speci men Type: BLOOD SPECIMENOrdering Facility: [facility] Address: [address] [place] [address] Performed By: #### 5 7021-8 ####[facility]ITALNCLIA [id number] [place] [address] [place] Platelet mean volume (Bld) [Entitic vol] 9.3 fL Normal 9.0-12.7 [facility] Comment on above: Order Comment: Speci men Type: BLOOD SPECIMENOrdering Facility: [facility] Address: [address] [place] [address] Performed By: #### 5 7021-8 ####[facility]UN[facility] GORDAWNCLIA [id number] [place] [address] [place] Platelets (Bld) [#/Vol] 267 10*3/uL Normal 150-400 [facility] Comment on above: Order Comment: Speci men Type: BLOOD SPECIMENOrdering Facility: [facility] Address: [address] [place] [address] Performed By: #### 5 7021-8 ####[facility] PUN[facility] GORDAWNCLIA [id number] [place] [address] [place] RBC (Bld) [#/Vol] 3.31 10*6/uL Low 3.90-5.20 [facility] Comment on above: Order Comment: Speci men Type: BLOOD SPECIMENOrdering Facility: [facility] Address: [address] [place] [address] Performed By: #### 5 7021-8 ####[facility] PUN[facility] GORDAWNCLIA [id number] [place] [address] [place] WBC (Bld) [#/Vol] 6.82 10*3/uL Normal 3.70-11.00 [facility] Comment on above: Order Comment: Speci men Type: BLOOD SPECIMENOrdering Facility: [facility] Address: [address] [place] [address] Performed By: #### 5 7021-8 ####[facility]ITALTOWNCLIA [id number] [place] [address] [place] ABD/PEL W IVCONon 21-[address] ABD/PEL W IVCON Normal [facility] Ferritin SerPl-mCncon 2024 Ferritin [Mass/Vol] 55.8 ng/mL Normal 14.7-205.1 [facility] Comment on above: Order Comment: Umesh baugh Type: BLOOD SPECIMENOrdering Facility: [facility] Address: [address] [place] [address] Performed By: #### 5 0190-8, 2276-4 ####[facility] LABCLIA [id number] [place] [address] [place] HISTORY PHYSICALon HISTORY PHYSICAL Normal [facility] HbA1c (Bld)on 08-14-2024 Average glucose Estimated from glycated hemoglobin (Bld) [Mass/Vol] 80 mg/dL Normal [facility] Comment on above: Order Comment: Umesh baugh Type: BLOOD SPECIMENOrdering Facility: [facility] Address: [address] [place] [address] Result Comment: eAG: (Estimated average glucose) is a calculated value from HgbA1c and is sales and marketing representative of the average blood glucose level in the last 2-3 month period. Performed By: #### 5 5454-3 ####[facility] LABIA [id number] [place] [address] [place] HbA1c (Bld) [Mass fraction] 4.4 % Normal 4.3-5.6 [facility] Comment on above: Order Comment: Umesh baugh Type: BLOOD SPECIMENOrdering Facility: [facility] Address: [address] [place] [address] Result Comment: Amer [place] Diabetes Association guidelines indicate that patients with HgbA1c in the range 5.7-6.4% are at increased risk for development of diabetes, and intervention by lifestyle modification may be beneficial. HgbA1c greater or equal to 6.5% is considered diagnostic of diabetes. Performed By: #### 5 5454-3 ####[facility] LABCLIA [id number] [address] [place] Iron and Iron binding capaci ty panelon 08-14-2024 Iron [Mass/Vol] 58 ug/dL Normal 41-186 [facility] Comment on above: Order Comment: Speci men Type: BLOOD SPECIMENOrdering Facility: [facility] Address: [address] [place] [address] Performed By: #### 5 0190-8, 2275-4 ####[facility] LABCLIA [id number] [place] [id number] [place] Iron binding capacity [Mass/Vol] 341 ug/dL Normal 232-386 [facility] Comment on above: Order Comment: Speci men Type: BLOOD SPECIMENOrdering Facility: [facility] Address: [address] [place] [address] Performed By: #### 5 0190-8, 2275- ####[facility] LABCLIA [id number] [place] [address] [place] Iron/TIBC [Molar ratio] 17.0 % Normal 15.0-57.0 [facility] Comment on above: Order Comment: Speci men Type: BLOOD SPECIMENOrdering Facility: [facility] Address: [address] [place] [address] Performed By: #### 5 0190-8, 2275-06 ####[facility] LABCLIA [id number] [place] [address] [place] TYPE AND SCREEN,30 DAYon ABO B Normal [facility] Comment on above: Order Comment: Speci men Type: BLOOD SPECIMENOrdering Facility: [facility] Address: [address] [place] [address] Performed By: #### T [id number] ####[facility] BLOOD BANKCLIA [id number] [place] [address] [place] Rh Nom (Bld) Positive Normal [facility] Comment on above: Order Comment: Speci men Type: BLOOD SPECIMENOrdering Facility: [facility] Address: [address] [place] [address] Performed By: #### T SCR30 ####[facility] BLOOD BANKCLIA [id number] [facility] [id number] [id number] [place] CNCNPATEDon 08-05-2024 CNCNPATED Normal [facility] CNOVon 08-05-2024 CNOV Normal [facility] CNOVSPon 07-31-2024 CNOVSP Normal [facility] REFERRAL FOR ADDITIONAL BIOM ARKER AND MOLECULAR TESTINGOrdered By: Cosmo Hatch on 07-30-[address] [facility] Comment on above: Request has been rec eived for evaluation and the results will be issued separately. [facility] REFERRAL FOR ADDITIONAL BIOM ARKER AND MOLECULAR TESTINGon 07-30-2024 REFERRAL FOR ADDITIONAL BIOMARKER AND MOLECULAR TESTING Normal [facility] Comment on above: Order Comment: Speci men Type: TISSUE SPECIMENOrdering Facility: [facility] Address: [address] [place] [address] Result Comment: Requ est has been received for evaluation and the results will be issued separately. Performed By: #### A PMOL ####[facility]STIANBLANCH[facility] [id number] [place] [address] [place] BRIEF OP NOTon 07-24-2024 BRIEF OP NOT Normal [facility] CT BIOPSY ABD/RETROPERIT MAS Son 07-24-2024 CT BIOPSY ABD/RETROPERIT MASS Normal [facility] HISTORY PHYSICALon HISTORY PHYSICAL Normal [facility] MISMATCH REPAIR PROTEINS BY IHCon 07-24-2024 AP BIOMARKER DISCLAIMER Normal [facility] Comment on above: Order Comment: Speci men Type: TISSUE SPECIMENOrdering Facility: [facility] Address: [address] [place] [place] [id number] Result Comment: Vero voss Developed Test (LDT) Disclaimer:Performance characteristics of immunohistochemical, immunofluorescent and chromogenic in-situ hybridization tests have been determined by the performing laboratory within [facility]???[facility] Department ([facility], [facility], [facility], [facility], [facility], [facility], [facility]) in a manner consistent with CLIA requirements. One or more of these tests have not been cleared or approved by the FDA. [facility] is regulated under CLIA as qualified to perform high-complexity testing. These tests are used for clinical purposes. They should not be regarded as investigational or for research. Positive and negative controls stain appropriately. Performed By: #### L [id number] ####[facility] LABCLIA [id number] [address] [address] [place] AP BLOCK ID A1 Normal [facility] Comment on above: Order Comment: Speci men Type: TISSUE SPECIMENOrdering Facility: [facility] Address: [address] [place] [address] Performed By: #### L [id number] ####[facility] LABCLIA [id number] [place] [id number] [facility] BIOMARKER INTERPRETATION COMMENT AND REFERENCE RANGE Normal [facility] Comment on above: Order Comment: Umesh baugh Type: TISSUE SPECIMENOrdering Facility: [facility] Address: [address] [place] [address] Result Comment: Inta ct expression of MMR (mismatch repair) proteins by immunohistochemistry is highly correlated with a microsatellite stable result by MSI (microsatellite instability) PCR analysis, and the results from these tests are viewed as clinically equivalent by the FDA. This result excludes at least 90-95% of Yang syndrome. These tests are an imperfect screen because some mutations may not produce loss of immunohistochemical expression. MSI molecular testing can be performed upon request in cases with a high clinical suspicion and appropriate family history.In a phase 2 study of patients with metastatic carcinoma, Evy et al. ([facility] 2015;372:2769-64) reported that clinical benefit of pembrolizumab, an anti-programmed 1 (PD-1) immune checkpoint inhibitor, was predicted by the tumor's mismatch repair status; mismatch repair deficient (dMMR) tumors are more responsive to PD-1 blockade than mismatch repair proficient tumors.Pembrolizumab is FDA-approved for treating adult and pediatric patients with unresectable or metastatic solid tumors that display microsatellite instability-high (MSI-H) by PCR assay or dMMR by immunohistochemistry (IHC). The FDA does not distinguish between PCR and IHC-based assays, as these are considered equivalent and complimentary tests.As clinically indicated, and in the appropriate setting of genetic counseling with informed patient consent, further genetic testing may be helpful. For more information or questions about this result, please call the [facility] at [phone]. Performed By: #### L [id number] ####[facility] LABCLIA [id number] [address] [place] [address] [facility] BIOMARKER METHOD Normal [facility] Comment on above: Order Comment: Speci men Type: TISSUE SPECIMENOrdering Facility: [facility] Address: [address] [place] [address] Performed By: #### L [id number] ####[facility] LABCLIA [id number] [address] [place] [address] [facility] CASE NUMBER MMR [id number] [facility] Comment on above: Order Comment: Speci men Type: TISSUE SPECIMENOrdering Facility: [facility] Address: [address] [place] [address] Performed By: #### L [id number] ####[facility] LABCLIA [id number] [address] [place] [address] [facility] FINAL PERFORMING LAB Normal [facility] Comment on above: Order Comment: Speci men Type: TISSUE SPECIMENOrdering Facility: [facility] Address: [address] [place] [address] Result Comment: Diag nostic interpretation performed at: [facility], [address] [place] [address] [place] [address] CLIA# [id number] Director: Marky Christian MDElectronically signed out by: Malini Lynn MD Performed By: #### L [id number] ####[facility] LABCLIA [id number] [address] [place] [address] [facility] Result Comment: Diag nostic interpretation performed at: [facility], [address] [place] [address] [place] [address] CLIA# [id number] Director: Marky Christian MD Performed By: #### 6 6121-5 ####[facility] LABCLIA [id number] [address] [place] [address] [place] FIXATIVE Formalin, 10% Neutra l Buffered Normal [facility] Comment on above: Order Comment: Speci men Type: TISSUE SPECIMENOrdering Facility: [facility] Address: [address] [place] [address] Performed By: #### L [id number] ####[facility] LABCLIA [id number] [address] [place] MLH1 IMMUNOHISTOCHEMICAL RESULTS Normal/Intact Nuclear Expression Normal [facility] Comment on above: Order Comment: Speci men Type: TISSUE SPECIMENOrdering Facility: [facility] Address: [address] [place] [address] Performed By: #### L [id number] ####[facility] LABCLIA [id number] [address], [id number] [place] MLH1 PROMOTER METHYLATION ASSAY No Normal [facility] Comment on above: Order Comment: Speci men Type: TISSUE SPECIMENOrdering Facility: [facility] Address: [address] [place] [address] Performed By: #### L [id number] ####[facility] LABCLIA [id number] [place] [id number] [place] MMR INTERPRETATION Proficient (Microsat ellite Stable) Normal [facility] Comment on above: Order Comment: Speci men Type: TISSUE SPECIMENOrdering Facility: [facility] Address: [address] [place], [place] [id number] Performed By: #### L [id number] ####[facility] [facility] LABCLIA [id number] [address], [facility] [place] MSH2 IMMUNOHISTOCHEMICAL RESULTS Normal/Intact Nuclear Expression Normal [facility] Comment on above: Order Comment: Speci men Type: TISSUE SPECIMENOrdering Facility: [facility] Address: [address] [place] [address] Performed By: #### L [id number] ####[facility] LABCLIA [id number] [place] [address] [place] MSH6 IMMUNOHISTOCHEMICAL RESULTS Normal/Intact Nuclear Expression Normal [facility] Comment on above: Order Comment: Speci men Type: TISSUE SPECIMENOrdering Facility: [facility] Address: [address] [place] [address] Performed By: #### L [id number] ####[facility] LABCLIA [id number] [place] [address] [place] PMS2 IMMUNOHISTOCHEMICAL RESULTS Normal/Intact Nuclear Expression Normal [facility] Comment on above: Order Comment: Speci men Type: TISSUE SPECIMENOrdering Facility: [facility] Address: [address] [place] [address] Performed By: #### L [id number] ####[facility] LABCLIA [id number] [place] [address] [place] TUMOR TYPE MMR Metastatic Colorecta l Adenocarcinoma [facility] Comment on above: Order Comment: Speci men Type: TISSUE SPECIMENOrdering Facility: [facility] Address: [address] [place] [address] Performed By: #### L [id number] ####[facility] LABCLIA [id number] [place] [address] [place] NURSING PROGon 07-24-2024 NURSING PROG Normal [facility] Pathology biopsy report Cordell (Tiss)on 07-24-2024 AP DISCLAIMER Normal [facility] Comment on above: Order Comment: Speci men Type: TISSUE SPECIMENOrdering Facility: [facility] Address: [address] [place] [address] Result Comment: Vero voss Developed Test (LDT) Disclaimer:Performance characteristics of immunohistochemical, immunofluorescent, and chromogenic in-situ hybridization tests have been determined by the performing laboratory within [facility]'s [facility] Din[facility] Pathology and Laboratory Medicine Department ([facility], [facility], [facility], [facility], [facility], [facility], or [facility]) in a manner consistent with CLIA requirements. One or more of these tests may not have been cleared or approved by the FDA. [facility] is regulated under CLIA as qualified to perform high-complexity testing. These tests are used for clinical purposes. These should not be regarded as investigational or for research. Positive and negative controls stain appropriately. Performed By: #### 6 6121-5 ####[facility] LABIA [id number] [address] CASE REPORT [facility] Comment on above: Order Comment: Speci men Type: TISSUE SPECIMENOrdering Facility: [facility] Address: [address] [place] [address] Result Comment: Surg [facility] Pathology Report Case: [id number] Provider: Paola Chapa MD Collected: 07/24/2024 09:56 AMOrdering Location: [facility] INTERVENT[facility]AL Received: 07/24/2024 10:11 AM RADIOLOGYPathologist: Marybeth Montemayor MDSpecimen: Soft Tissue, Mass, Biopsy Performed By: #### 6 6121-5 ####[facility] LABIA [id number] [address] [place] CLINICAL HISTORY [facility] Comment on above: Order Comment: Speci men Type: TISSUE SPECIMENOrdering Facility: [facility] Address: [address] [place] [address] Result Comment: Pre- op diagnosis:Other intra-abdominal and pelvic swelling, mass and lump [R19.09] Performed By: #### 6 6121-5 ####[facility] LABIA [id number] [address] [place] DIAGNOSIS COMMENT The history of right colon adenocarcinoma is noted. The carcinoma in the current sample shows similar morphology to the prior colon adenocarcinoma ([id number]), supporting the diagnosis of metastatic adenocarcinoma of colonic origin. [facility] Comment on above: Order Comment: Speci men Type: TISSUE SPECIMENOrdering Facility: [facility] Address: [address] [place] [address] Performed By: #### 6 6121-5 ####[facility] LABIA [id number] [place] [address] [place] FINAL DIAGNOSIS [facility] Comment on above: Order Comment: Speci men Type: TISSUE SPECIMENOrdering Facility: [facility] Address: [address] [place] [address] Result Comment: A. S oft tissue, right lower quadrant mass, biopsy:- Adenocarcinoma, clinically metastatic. See comment. at 1446 EDT Performed By: #### 6 6121-5 ####[facility] LABIA [id number] [place] [address] [place] GROSS DESCRIPTION Normal [facility] Comment on above: Order Comment: Speci men Type: TISSUE SPECIMENOrdering Facility: [facility] Address: [address] [place] [address] Result Comment: A. S oft Tissue, Mass, BiopsyReceived in formalin are multiple pieces of dominguez-pink, soft tissue aggregating to 1.5 x 0.4 x 0.1 cm. Totally submitted in one cassette.Gross examination performed at [facility], [address] [place], [place] [address] July 24, 2024 3:19 PM Performed By: #### 6 6121-5 ####[facility] LABIA [id number] [address] [place] TARGETED ONCOLOGY PANEL NEXT GENERATION SEQUENCING OTHERon 07-24-2024 TARGETED ONCOLOGY PANEL NEXT GENERATION SEQUENCING OTHER Normal [facility] Comment on above: Order Comment: Speci men Type: TISSUE SPECIMENOrdering Facility: [facility] Address: [address] [place] [address] Result Comment: [facility] Targeted Oncology PanelLaboratory Accession Number: [id number] #: [id number] #: [id number] Type: FFPET% Tumor: 70CASE SUMMARY:No clinically significant single nucleotide variants, insertions,deletions, copy number gains, RNA fusions or aberrant transcripts weredetected in this specimen. Clinical and histopathological correlationis recommended.*Unless otherwise stated, all assay hotspot regions have been tested(see EVALUATED GENES below) and only positive genes are reported.RESULTS:Single Nucleotide Variants/Indels: None detectedCopy Number Gains: None detectedRNA Fusions and Aberrant Transcripts: None detectedVARIANT INTERPRETATIONS: None detectedVariants of uncertain significance detected:None detectedRegions with coverage <100x:NoneMETHODOLOGY:Extracted nucleic acid from the specimen, both DNA and RNA, weresubjected to separate targeted amplification reactions, using Campaign Monitor primers designed by [employer] ([employer], [place], [place]). Hotspots and selected fusions in generegions listed below were sequenced using [employer] ([place], [place])2x150 paired-end cycle chemistry. A customized bioinformaticsanalytical platform was used for read alignment (Genome GqeauUQDl14/hg19), variant identification and annotation. Single nucleotidevariants (SNVs), insertion, deletion (indels) and copy number gainvariants are detected by DNA sequencing. Select fusions and aberranttranscripts (EGFR vIII and MET exon 14 skipping transcripts) aredetected by RNA sequencing. Variants are classified according toestablished guidelines (1). Reported results include variants ofstrong or potential clinical significance and variants of unclearclinical significance. Benign population polymorphisms are notincluded in the report. If relevant, standard of care therapies forvarious solid tumor types/indications (FDA-approved biomarker orstandard biomarker recommended by a professional society) are providedin the variant interpretation section, as well as markers resistant toFDA-approved drugs. This information is not to be considered arecommendation for therapy.Based on validation, the DNA testing delivered an average of >500xcoverage and >99% of targeted regions showed over 100x coverage. Aminimum coverage depth of 100 reads is required across the entireregion of interest; a list of low coverage areas is included in thereport as applicable. The test demonstrated 100% sensitivity and 100%specificity in identifying SNVs, indels and copy number gains. Thelower limit of detection of this assay is approximately 5% variantallele fraction (VAF) for SNV/indels and 6 copies or greater for copynumber gains. Variants below these thresholds may be reported at thediscretion of the molecular pathology professional staff if thetechnical quality of the sequencing is sufficient at that location andthe call is unequivocal.Based on validation, the RNA fusion testing averaged >150,000 totalreads. The test demonstrated 93% sensitivity and 100% specificity ingene fusion identification compared to NGS sequencing, and 69%sensitivity and 100% specificity compared to FISH of fusion drivers(unknown fusion partner). Overall sensitivity is 78% and accuracy is99%. The lower limit of detection is approximately 1% of totalsequencing reads.LIMITATIONS:Sequence changes outside the analyzed alterations hotspots, includingintronic and noncoding regions, will not be identified by this test.Insertions and deletions larger than 20 and 40 bp, respectively, maynot be identified by this test. Negative results from specimens forwhich the percentage of tumor cells is 10% or less should beinterpreted with caution. Although variant allele fraction is providedas a percentage, this is not a quantitative test. RNA fusionsinvolving alternative partners or breakpoints outside of the targetedregions cannot be detected by this test. This test does notdistinguish between somatic and inherited variants.Tumor heterogeneity, tumor burden, specimen degradation or otherlimitations of the technology may affect the sensitivity and limit ofdetection, either broadly across the regions of interest or forspecific regions and may lead to false negative results.For tumor tissue, fixation in neutral buffered formalin or alcohol ispreferred. Decalcification agents and fixation agents containing heavymetals (e.g., B5) or harsh acid or base components (e.g., Bouin'ssolution) can inhibit PCR reactions. Peripheral blood and bone marrowaspirate specimens should be collected in EDTA.Hotspots, copy number variants and selected fusions evaluated by thisassay can aid in the diagnostic and therapeutic assessment of avariety of tumor types, including non-small cell lung cancer,melanoma, colorectal cancer, prostate cancer, breast cancer,glioblastoma, thyroid cancer and others (2-12). This panel can alsoprovide focused tumor profiling for patients with locallyadvanced/metastatic disease, who are candidates for anti-cancertherapy, to identify uncommon but targetable alterations (13, 14).Clinical and histopathological correlation required.EVALUATED GENES:Gene Transcript Exon(s)ALKT1 NM_005163 3ALK NM_004304 21-25AR NM_000044 6, 8BRAF NM_004333 11, 15CDK4 NM_000075 6BCMZP4 NM_001904 3, 7-8DDR2 NM_006182 5EGFR NM_005228 3, 7, 12, 15, 18-59BIUR8 NM_004448 8, 17-46PRCX4 NM_001982 2-3, 6, 8-9ERBB4 NM_005235 18ESR1 NM_000125 8FGFR1 NM_023110 12-14, 16-61WXTD0 NM_000141 7-9, 12, 93DSXC8 NM_000142 7, 9, 14, 24MIE88 NM_002067 4, 5GNAQ NM_002072 4, 5GNAS NM_080425 8H3-3A NM_002107 2H3-3B NM_005324 2HRAS NM_005343 2,3IDH1 NM_005896 4IDH2 NM_002168 4JAK1 NM_002227 14-16JAK2 NM_004972 14JAK3 NM_000215 11-12, 15KIT NM_000222 8-11, 13, 17KRAS NM_033360 2-2DBO7O2 NM_002755 2-3, 9QZZ7J3 NM_030662 2MET NM_000245 14, 16, 19MTOR NM_004958 30, 39-40, 43, 47, 53NRAS NM_002524 2-4PDGFRA NM_006206 12, 14, 99IGX9PQ NM_006218 2, 5-6, 8, 10, 14, 19, 21RAF1 NM_002880 7, 12RET NM_020975 11, 13, 15-16ROS1 NM_002944 36, 38SMO NM_005631 4, 6, 8-9TERT NM_198253 GzewrqvrPK55 NM_000546 5, 7, 8*Only hotspots within designated exons are covered, full exons are notsequenced.Genes reported for copy number gains: ALK, AR BRAF, CCND1, CDK4, CDK6,EGFR, ERBB2, FGFR1, FGFR2, FGFR3, FGFR4, KIT, KRAS, MET, MYC, MYCN,PDGFRA, YPO7ZXXvcaekq detected in RNA:Gene Detected FusionsABL1 EML1::YJI6TTL8 MAGI3::WJD7SMV A2M::ALK, ACTG2::ALK, ALK::PTPN3, ATIC::ALK, I1kca91::ALK, CARS::ALK, CLIP4::ALK, CLTC::ALK, DCTN1::ALK, EML4::ALK, BSA1WHR0::ALK, HIP1::ALK, KIF5B::ALK, KLC1::ALK, MEMO1::ALK, NCOA1::ALK, LDIRS8W::ALK, RANBBP2::ALK, VLZ65U7_OIX85M::ALK, SMEK2::ALK, STRN::ALK, TFG::ALK, TPM1::ALK, TPM3::ALK, TPM4::ALK, TPR::ALK, TRAF1::ALK, VCL::ALKAXL ROEMRO::MBIPBRAF AGTRAP:BRAF, AKAP9::BRAF, CDC27::BRAF, CGC076I::BRAF, FCHSD1::BRAF, EVSA0069::BRAF, PAPSS1::BRAF, BUS91Q0::BRAF, SND1::BRAF, SJV2DT3::BRAF, TRIM24::BRAFEGFR EGFR vIII transcriptERBB2 WIPF2::PGSM2WYM RPT91F1:ERG, TMPRSS2:ERGFGFR1 BAG4::FGFR1, ERLIN2::FGFR1, FGFR1::KBEX3IKMA3 FGFR2::AFF3, FGFR2::BICC1, FGFR2::CASP7, FGFR2::CIT, FGFR2::ETEU5455_CBKK3, FGFR2::MGEA5, FGFR2::OFD1, FGFR2::TACC1, RGT35Z9::JFNM2AYTY8 FGFR3::AES, FGFR3::ITVUW2Z5, FGFR3::ELAVL3, FGFR3::OSSJ3ALB MET Exon 14 Skipping, CUCVF9V1::MET, K9evv03::MET, CAPZA2::MET, OXR1::MET, TFG::MET, TPR::MET, PTPRZ1::METNTRK1 BCAN::NTRK1, CD74::NTRK1, REX::NTRK1, FMK0JY0::NTRK1, LMNA::NTRK1, MPRIP::NTRK1, NFASC::NTRK1, NTRK1::QTJP6K6, GBF715::NTRK1, SQSTM1::NTRK1, SSBP2::NTRK1, TFG::NTRK1, TPM3::NTRK1, TPR::ONLS3VGIO4 AFAP1::NTRK2, AGBL4::NTRK2, NACC2::NTRK2, QKI::NTRK2, SQSTM1::NTRK2, TRIM24::NTRK2, VCL::YOFJ9GKAP4 BTBD1::NTRK3, COX5A::NTRK3, ETV6::HQFJ5QNEBLR SCAF11::PDGFRAPPARG PAX8::PPARGRAF1 V5ENJP7::RAF1, ESRP1::HPZ3BTKZ N27cth30::RELARET ACBD5::RET, AFAP1::RET, AKAP13::RET, CCDC6::RET, CUX1::RET, ERC1::RET, FKBP15::RET, GOLGA5::RET, HOOK3::RET, BJLK4000::RET, KIF5B::RET, KTN1::RET, NCOA4::RET, PCM1::RET, NAENI0D::RET, RUFY2::RET, EZUIO3W::RET, FHL1SI4::RET, TRIM24::RET, TRIM27::RET, TRIM33::RETROS1 CCDC6:ROS1, CD74::ROS1, CEP85L::ROS1, CLIP1::ROS1, CLTC::ROS1, ERC1::ROS1, EZR::ROS1, GOPC::ROS1, HLA_A::ROS1, KDELR2::ROS1, PUYA1526::ROS1, LRIG3::ROS1, MSN::ROS1, MYO5A::ROS1, PPFIBP1::ROS1, PWWP2A::ROS1, SDC4::ROS1, QZG53D4::ROS1, TFG::ROS1, TPM3::ROS1, ZCCHC8::PWA5ZNAUUL7 TMPRSS2::ERG, TMPRSS2::ETV1, TMPRSS2::ETV4, TMPRSS2::DOK7XFBWUTBYMH:1) Calderon MM, et al. Standards and Guidelines for the Interpretation andReporting of Sequence Variants in Cancer: A Joint ConsensusRecommendation of the Association for Molecular Pathology, [facility] Centerety of Clinical Oncology, and College of [place] Pathologists. JMol Diagn. 2017 Mar;19(1):4-23. doi: 10.1016/j.jmoldx.2016.10.002.PMID: 21972074; PMCID: DOW2665137.2) Mat Fajardo, Lazaro SA, Leo AM. Recurrent gene fusions inprostate cancer. Chelsy Rev Cancer. 2008 Sep;8(7):497-511. doi:10.1038/wwu7248. Epub 2007Sep 12. PMID: 86280454; PMCID: UQX4701745.3) Brant WOODWARD, Fady GILL. The genomic landscape of prostate cancer.Front Endocrinol ([facility]). 2011August 09;3:69. doi:10.3389/fendo.2012.99483. PMID: 31876641; HCZ8320889.4) Dwaine C, et al. Breast Cancer Genomics: Primary and Most CommonMetastases. Cancers ([place]). 2021Sep 14;14(13):3046. doi:10.3390/zdmngxo55423305. PMID: 69329976; PMCID: YZH7541049.5) Venice R, Urbano ANJ, CJ. Principal Software Architect Oncogenes but Not as We KnowThem: Targetable Fusion Genes in Breast Cancer. Cancer Discov. 2018May;8(3):272-275. doi: 10.1158/7699-3402.CD-18-0091. PMID: 10181318;PMCID: FPN8773931.6) Gera A, Krystian J, Po JW, Serafin N, Chidi T, Garett CS. The GenomicLandscape of Thyroid Cancer Tumourigenesis and Implications forImmunotherapy. Cells. 2020July 25;10(5):1082. doi:10.3390/grlyy51072899. PMID: 00470473; PMCID: NSM7566570.7) Latesha GALARZA, et al. Molecular Biomarkers for the Evaluation ofColorectal Cancer: Guideline From the [place] Society for ClinicalPathology, College of [place] Pathologists, Association for MolecularPathology, and the [place] Society of Clinical Oncology. J ClinOncol. 2017 July 25;35(13):2173-2858. doi: 10.1200/JCO.2016.71.9807.Epub 2016May 02. PMID: 77486278.8) Margarita ROJAS, et al. Updated Molecular Testing Guideline for theSelection of Lung Cancer Patients for Treatment With Targeted TyrosineKinase Inhibitors: Guideline From the College of AmericanPathologists, the International Association for the Study of LungCancer, and the Association for Molecular Pathology. Arch Pathol LabMed. 2018 May;142(3):321-346. doi: 10.5858/arpa.8729-6487-ZB. Ahal7810 Apr 17. PMID: 74811899.9) Cancer Genome [place] Research Network. Comprehensive genomiccharacterization defines human glioblastoma genes and core pathways.Nature. 2007Jan 16;455(4544):1065-8. doi: 10.1038/pnzhhy56614. Vgoi7810 Nov 28. Erratum in: Nature. 2012May 24;494(8943):506. PMID:35658016; PMCID: VXB3211886.10) Linda MY, Alina M. Glioblastoma Genomics: A Very ComplicatedStory. In: De Elizabeth S, food expeditor. Glioblastoma [Internet].[place] ([place]): [employer]; 2016Dec 21. Chapter 1. PMID:90255917.11) June S, Vivienne N, Sherrie H. Melanoma genomics: a xnvsh-zy-esa-artreview of practical clinical applications. Br J Dermatol. ug;185(2):272-281. doi: 10.1111/bjd.20317. Epub 2020Aug 30. PMID:62584455.12) Gita LDominguez LM. An update on molecular genetics ofgastrointestinal stromal tumours. J Clin Pathol. 2006Aug;59(6):557-63. doi: 10.1136/jcp.2005.564514. PMID: 68394171; PMCID:TZA3637385.13) Brianna Harmona M, Jordan SORIANO, Belkis TL, Maryjane LL. Molecularprofiling for precision cancer therapies. Genome Med. 2019;12(1):8. doi: 10.1186/x41649-201-0330-2. PMID: 86475984; PMCID:WAH3350019.14) John Martinez et al. Somatic Genomic Testing in Patients WithMetastatic or Advanced Cancer: ASCO Provisional Clinical Opinion. JClin Oncol. 2021Jul 04;40(11):1434-1428. doi: 10.1200/JCO.21.09920.Epub 2021May 13. Erratum in: J Clin Oncol. 2021Sep 13;40(18):2068.PMID: 01196738.15) John Martinez et al. OncoKB: OncoKB: A Precision OncologyKnowledge Base. JCO Precis Oncol. 2016;2017:PO.17.34994. doi:10.1200/PO.17.31495. Epub 2016August 09. PMID: 43831115; PMCID:HCC7904085.DISCLAIMER:This test was developed and its performance characteristics determinedby [facility]. Ithas not been cleared or approved by the FDA. [facility] is regulated under CLIAas certified to perform high-complexity testing. This test is used forclinical purposes. It should not be regarded as investigational or forresearch.Test performed at [facility], [address] [place] [address]. CLIA Number: [id number] performed by Marybeth Montemayor MD, PhD Performed By: #### T OPTO ####[facility] ILLUMINA LIMSCLIA [id number] [place] [address] [place] CBC W Auto Differential pane l (Bld)on 07-19-2024 Basophils (Bld) [#/Vol] 0.07 10*3/uL Normal <0.11 [facility] Comment on above: Order Comment: Speci men Type: BLOOD SPECIMENOrdering Facility: [facility] Address: [address] [place] [address] Performed By: #### 5 7021-8 ####[facility] BISHNUCOLELIA [id number] [place] [address] [place] Basophils/100 WBC (Bld) 1.2 % Normal [facility] Comment on above: Order Comment: Speci men Type: BLOOD SPECIMENOrdering Facility: [facility] Address: [address] [place] [address] Performed By: #### 5 7021-8 ####[facility]IA [id number] [place] [address] [place] Differential cell count method Nom (Bld) Auto Normal [facility] Comment on above: Order Comment: Speci men Type: BLOOD SPECIMENOrdering Facility: [facility] Address: [address] [place] [address] Performed By: #### 5 7021-8 ####[facility]IA [id number] [place] [address] [place] Eosinophils (Bld) [#/Vol] 0.51 10*3/uL High <0.46 [facility] Comment on above: Order Comment: Speci men Type: BLOOD SPECIMENOrdering Facility: [facility] Address: [address] [place] [address] Performed By: #### 5 7021-8 ####[facility] BISHNUWNCLIA [id number] [place] [address] [place] Eosinophils/100 WBC (Bld) 8.5 % Normal [facility] Comment on above: Order Comment: Speci men Type: BLOOD SPECIMENOrdering Facility: [facility] Address: [address] [place] [address] Performed By: #### 5 7021-8 ####[facility]CL[facility] [id number] [place] [id number] [place] Erythrocyte distribution width (RBC) [Ratio] 16.3 % High 11.5-15.0 [facility] Comment on above: Order Comment: Speci men Type: BLOOD SPECIMENOrdering Facility: [facility] Address: [address] [place] [address] Performed By: #### 5 7021-8 ####[facility]NCLIA [id number] [place] [address] [place] Hematocrit (Bld) [Volume fraction] 29.6 % Low 36.0-46.0 [facility] Comment on above: Order Comment: Speci men Type: BLOOD SPECIMENOrdering Facility: [facility] Address: [address] [place] [address] Performed By: #### 5 7021-8 ####[facility]ITALNCLIA [id number] [place] [address] [place] Hemoglobin (Bld) [Mass/Vol] 9.8 g/dL Low 11.5-15.5 [facility] Comment on above: Order Comment: Speci men Type: BLOOD SPECIMENOrdering Facility: [facility] Address: [address] [place] [address] Performed By: #### 5 7021-8 ####[facility]NCLIA [id number] [place] [address] [place] Immature granulocytes (Bld) [#/Vol] 10*3/uL Normal <0.10 [facility] Comment on above: Order Comment: Speci men Type: BLOOD SPECIMENOrdering Facility: [facility] Address: [address] [place] [address] Performed By: #### 5 7021-8 ####[facility]ITALNCLIA [id number] [place] [address] [place] Immature granulocytes/100 WBC (Bld) 0.3 % Normal [facility] Comment on above: Order Comment: Speci men Type: BLOOD SPECIMENOrdering Facility: [facility] Address: [address] [place] [address] Performed By: #### 5 7021-8 ####[facility] MARCONCKELSIE [id number] [place] [address] [place] Lymphocytes (Bld) [#/Vol] 0.93 10*3/uL Low 1.00-4.00 [facility] Comment on above: Order Comment: Speci men Type: BLOOD SPECIMENOrdering Facility: [facility] Address: [address] [place] [address] Performed By: #### 5 7021-8 ####[facility]OSPITALKALIEHUNTSMAN [facility] [id number] [place] [address] [place] Lymphocytes/100 WBC (Bld) 15.6 % Normal [facility] Comment on above: Order Comment: Speci men Type: BLOOD SPECIMENOrdering Facility: [facility] Address: [address] [place] [address] Performed By: #### 5 7021-8 ####[facility]OSPITALNCCALDERONLetha [id number] [place] [address] [place] MCH (RBC) [Entitic mass] 34.6 pg High 26.0-34.0 [facility] Comment on above: Order Comment: Speci men Type: BLOOD SPECIMENOrdering Facility: [facility] Address: [address] [place] [address] Performed By: #### 5 7021-8 ####[facility]ITALNCLIA [id number] [place] [address] [place] MCHC (RBC) [Mass/Vol] 33.1 g/dL Normal 30.5-36.0 [facility] Comment on above: Order Comment: Speci men Type: BLOOD SPECIMENOrdering Facility: [facility] Address: [address] [place] [address] Performed By: #### 5 7021-8 ####[facility] BISHNURENONCLIA [id number] [place] [address] [place] MCV (RBC) [Entitic vol] 104.6 fL High 80.0-100.0 [facility] Comment on above: Order Comment: Speci men Type: BLOOD SPECIMENOrdering Facility: [facility] Address: [address] [place] [address] Performed By: #### 5 7021-8 ####[facility]ITALNCLIA [id number] [place] [address] [place] Monocytes (Bld) [#/Vol] 0.76 10*3/uL Normal <0.87 [facility] Comment on above: Order Comment: Speci men Type: BLOOD SPECIMENOrdering Facility: [facility] Address: [address] [place] [address] Performed By: #### 5 7021-8 ####[facility] [id number] [place] [address] [place] Monocytes/100 WBC (Bld) 12.7 % Normal [facility] Comment on above: Order Comment: Speci men Type: BLOOD SPECIMENOrdering Facility: [facility] Address: [address] [place] [address] Performed By: #### 5 7021-8 ####[facility] CENTERLIA [id number] [place] [address] [place] Neutrophils (Bld) [#/Vol] 3.69 10*3/uL Normal 1.45-7.50 [facility] Comment on above: Order Comment: Speci men Type: BLOOD SPECIMENOrdering Facility: [facility] Address: [address] [place] [address] Performed By: #### 5 7021-8 ####[facility]ENTERLIA [id number] [place] [address] [place] Neutrophils/100 WBC (Bld) 61.7 % Normal [facility] Comment on above: Order Comment: Speci men Type: BLOOD SPECIMENOrdering Facility: [facility] Address: [address] [place] [address] Performed By: #### 5 7021-8 ####[facility]ITALNCH[facility] [id number] [place] [address] [place] Nucleated RBC (Bld) [#/Vol] 10*3/uL Normal <0.01 [facility] Comment on above: Order Comment: Speci men Type: BLOOD SPECIMENOrdering Facility: [facility] Address: [address] [place] [address] Performed By: #### 5 7021-8 ####[facility] [id number] [place] [address] [place] Nucleated RBC/100 WBC (Bld) [Ratio] 0.0 /100 WBC Normal [facility] Comment on above: Order Comment: Speci men Type: BLOOD SPECIMENOrdering Facility: [facility] Address: [address] [place] [address] Performed By: #### 5 7021-8 ####[facility]ITALNCLI [id number] [place] [address] [place] Platelet mean volume (Bld) [Entitic vol] 8.5 fL Low 9.0-12.7 [facility] Comment on above: Order Comment: Speci men Type: BLOOD SPECIMENOrdering Facility: [facility] Address: [address] [place] [address] Performed By: #### 5 7021-8 ####[facility]ITALNCLI [id number] [place] [address] [place] Platelets (Bld) [#/Vol] 187 10*3/uL Normal 150-400 [facility] Comment on above: Order Comment: Speci men Type: BLOOD SPECIMENOrdering Facility: [facility] Address: [address] [place] [address] Performed By: #### 5 7021-8 ####[facility] LARANCKELSIE [id number] [place] [address] [place] RBC (Bld) [#/Vol] 2.83 10*6/uL Low 3.90-5.20 [facility] Comment on above: Order Comment: Speci men Type: BLOOD SPECIMENOrdering Facility: [facility] Address: [address] [place] [address] Performed By: #### 5 7021-8 ####[facility] BISHNUCucaNCKELSIE [id number] [place] [address] [place] WBC (Bld) [#/Vol] 5.98 10*3/uL Normal 3.70-11.00 [facility] Comment on above: Order Comment: Speci men Type: BLOOD SPECIMENOrdering Facility: [facility] Address: [address] [place] [address] Performed By: #### 5 7021-8 ####[facility] BISHNURENONCLIA [id number] [place] [address] [place] CNOVSPon 07-19-2024 CNOVSP Normal [facility] Comprehensive metabolic 2000 panelon 07-19-2024 Albumin [Mass/Vol] 4.1 g/dL Normal 3.9-4.9 [facility] Comment on above: Order Comment: Speci men Type: BLOOD SPECIMENOrdering Facility: [facility] Address: [address] [place] [address] Performed By: #### 2 4323-8 ####[facility] BISHNURENONCLIA [id number] [place] [address] [place] ALP [Catalytic activity/Vol] 65 U/L Normal 34-123 [facility] Comment on above: Order Comment: Speci men Type: BLOOD SPECIMENOrdering Facility: [facility] Address: [address] [place] [address] Performed By: #### 2 4323-8 ####[facility] LALYWNCLIA [id number] [place] [address] [place] ALT [Catalytic activity/Vol] 7 U/L Normal 7-38 [facility] Comment on above: Order Comment: Speci men Type: BLOOD SPECIMENOrdering Facility: [facility] Address: [address] [place] [address] Performed By: #### 2 4323-8 ####[facility] BISHNUWNCLIA [id number] [place] [address] [place] Anion gap [Moles/Vol] 8 mmol/L Normal 8-15 [facility] Comment on above: Order Comment: Speci men Type: BLOOD SPECIMENOrdering Facility: [facility] Address: [address] [place] [address] Performed By: #### 2 4323-8 ####[facility] BISHNUWNCLIA [id number] [place] [address] [place] AST [Catalytic activity/Vol] 15 U/L Normal 13-35 [facility] Comment on above: Order Comment: Speci men Type: BLOOD SPECIMENOrdering Facility: [facility] Address: [address] [place] [address] Performed By: #### 2 4323-8 ####[facility] MILLTOWNCLIA [id number] [place] [address] [place] Bilirubin [Mass/Vol] 0.2 mg/dL Normal 0.2-1.3 [facility] Comment on above: Order Comment: Speci men Type: BLOOD SPECIMENOrdering Facility: [facility] Address: [address] [place] [address] Performed By: #### 2 4323-8 ####[facility]ITALTOWNCLIA [id number] [place] [address] [place] Calcium [Mass/Vol] 9.1 mg/dL Normal 8.5-10.2 [facility] Comment on above: Order Comment: Speci men Type: BLOOD SPECIMENOrdering Facility: [facility] Address: [address] [place] [address] Performed By: #### 2 4323-8 ####[facility] MILLWNCLIA [id number] [place] [address] [place] Chloride [Moles/Vol] 105 mmol/L Normal 98-107 [facility] Comment on above: Order Comment: Speci men Type: BLOOD SPECIMENOrdering Facility: [facility] Address: [address] [place] [address] Performed By: #### 2 4323-8 ####[facility] CENTERLIA [id number] [place] [address] [place] CO2 [Moles/Vol] 25 mmol/L Normal 22-30 [facility] Comment on above: Order Comment: Speci men Type: BLOOD SPECIMENOrdering Facility: [facility] Address: [address] [place] [address] Performed By: #### 2 4323-8 ####[facility] CENTERLIA [id number] [place] [address] [place] Creatinine [Mass/Vol] 0.77 mg/dL Normal 0.58-0.96 [facility] Comment on above: Order Comment: Speci men Type: BLOOD SPECIMENOrdering Facility: [facility] Address: [address] [place] [address] Performed By: #### 2 4323-8 ####[facility]ITALNCLIA [id number] [place] [address] [place] Creatinine and Glomerular filtration rate.predicted panel (S/P/Bld) 86 mL/min/1.73m??? Normal >=60 [facility] Comment on above: Order Comment: Umesh baugh Type: BLOOD SPECIMENOrdering Facility: [facility] Address: [address] [place] [address] Result Comment: Sana mated Glomerular Filtration Rate (eGFR) is calculated using the 2020 CKD-EPI creatinine equation. This equation utilizes serum creatinine, sex, and age as parameters. The creatinine assay has traceable calibration to isotope dilution-mass spectrometry. Refer to KDIGO guidelines for clinical interpretation. In patients with unstable renal function, e.g. those with acute kidney injury, the eGFR may not accurately reflect actual GFR. Performed By: #### 2 4323-8 ####[facility] [id number] [place] [address] [place] Glucose [Mass/Vol] 117 mg/dL High 74-99 [facility] Comment on above: Order Comment: Umesh baugh Type: BLOOD SPECIMENOrdering Facility: [facility] Address: [address] [place] [address] Result Comment: The [place] [employer] (ADA) provides guidance for cutoff values for fasting glucose and random glucose. The ADA defines fasting as no caloric intake for at least 8 hours. Fasting plasma glucose results between 100 to 125 mg/dL indicate increased risk for diabetes (prediabetes).Fasting plasma glucose results greater than or equal to 126 mg/dL meet the criteria for diagnosis of diabetes. In the absence of unequivocal hyperglycemia, results should be confirmed by repeat testing. In a patient with classic symptoms of hyperglycemia or hyperglycemic crisis, random plasma glucose results greater than or equal to 200 mg/dL meet the criteria for diagnosis of diabetes.Reference: Standards of Medical Care in Diabetes 2016, [place] [employer]. Diabetes Care. 2016.39(Suppl 1). Performed By: #### 2 4323-8 ####[facility] [id number] [place] [address] [place] Potassium [Moles/Vol] 3.8 mmol/L Normal 3.7-5.1 [facility] Comment on above: Order Comment: Speci men Type: BLOOD SPECIMENOrdering Facility: [facility] Address: [address] [place] [address] Performed By: #### 2 4323-8 ####[facility] LALYWNCLIA [id number] [place] [address] [place] Protein [Mass/Vol] 6.6 g/dL Normal 6.3-8.0 [facility] Comment on above: Order Comment: Speci men Type: BLOOD SPECIMENOrdering Facility: [facility] Address: [address] [place] [address] Performed By: #### 2 4323-8 ####[facility] GORDAWNCLIA [id number] [place] [address] [place] Sodium [Moles/Vol] 138 mmol/L Normal 136-144 [facility] Comment on above: Order Comment: Speci men Type: BLOOD SPECIMENOrdering Facility: [facility] Address: [address] [place] [address] Performed By: #### 2 4323-8 ####[facility]ITALNCLIA [id number] [place] [address] [place] Urea nitrogen [Mass/Vol] 16 mg/dL Normal 7-21 [facility] Comment on above: Order Comment: Speci men Type: BLOOD SPECIMENOrdering Facility: [facility] Address: [address] [place] [address] Performed By: #### 2 4323-8 ####[facility] GORDAWNCLIA [id number] [place] [address] [place] PT panel Coag (PPP)on 2024 INR Coag (PPP) [Relative time] 0.9 {INR} Normal 0.9-1.3 [facility] Comment on above: Order Comment: Speci men Type: BLOOD SPECIMENOrdering Facility: [facility] Address: [address] [place] [address] Result Comment: Edwige min K Antagonist (VKA) Therapeutic Range: INR 2 to 3 (Target INR of 2.5)Note: For patients treated with VKA drugs, such as warfarin, the [place] [employer] 2012 Guideline recommends a therapeutic INR range of 2 to 3 (target INR of 2.5). This recommendation includes high-risk patients with antiphospholipid syndrome with previous arterial or venous thromboembolism, current-generation mechanical or bioprosthetic aortic heart valve replacement.Note: Patients with mechanical aortic valve replacement and additional risk factors for thromboembolic events (atrial fibrillation, previous thromboembolism, LV dysfunction, hypercoagulable conditions) or an older generation mechanical AVR (i.e., ball in-Cage) or any mechanical MVR should have a INR therapeutic range of 2.5 to 3.5 (target INR of 3).Summer GH, et al. Chest 2012, 141:7S-47SNishvida BRIGGS, et al. [facility] 2017, 70: 252-289 Performed By: #### 3 4528-0 ####[facility] [id number] [place] [address] [place] PT Coag (PPP) [Time] 9.8 s Normal <13.1 [facility] Comment on above: Order Comment: Speci men Type: BLOOD SPECIMENOrdering Facility: [facility] Address: [address] [place] [address] Performed By: #### 3 4528-0 ####[facility] [id number] [place] [address] [place] CNPNon 07-18-2024 CNPN Normal [facility] Absolute lymphocyte countOrd ered By: Milagro Ying on 07-11-2024 Lymphocytes Auto (Unsp spec) [#/Vol] 1.77 10*3/uL 0.83-4.51 [facility] Absolute neutrophil countOrd ered By: Milagro Ying on 07-11-2024 Neutrophils (Bld) [#/Vol] 8.9 10*3/uL High 2.0-7.7 [facility] Anion gap in Serum or Plasma Ordered By: Milagro Ying on 07-11-2024 Anion gap [Moles/Vol] 15 mmol/L 5-[address] [facility] Automated lymphocyte count a s percentage of total leukocytesOrdered By: Milagro Chapinromeo on 07-11-2024 Lymphocytes/100 WBC Auto (Unsp spec) 15.4 % Low 19-41 [facility] BUN/creatinine ratioOrdered By: Milagro Chapinromeo on 07-11-2024 Urea nitrogen/Creatinine [Mass ratio] 25.9 mg/mg High 10-20 [facility] Basophil percentageOrdered B y: Milagro Chapinromeo on 07-11-2024 Basophils/100 WBC (Bld) 0.3 % 0-1 [facility] Bilirubin Test strip Ql (U)O rdered By: Milagro Chapinromeo on 07-11-2024 Bilirubin Ql (U) Negative Negative [facility] Bilirubin, totalOrdered By: Milagro Chapinromeo on 07-11-2024 Bilirubin [Mass/Vol] 0.55 mg/dL 0.00-1.30 [facility] CBC W/Diff, Automatedon 06-25 Absolute Lymph 1.77 X10 3/uL Normal 0.83-4.51 [facility] Comment on above: Performed By: #### L 500.2500, L100.0100 #### [facility] [address] [facility] [address] Absolute Neut 8.9 X10 3/uL High 2.0-7.7 [facility] Comment on above: Performed By: #### L 500.2500, L100.0100 #### [facility] [address] [facility] [address] Basophils/100 WBC (Bld) 0.3 % Normal 0-1 [facility] Comment on above: Performed By: #### L 500.2500, L100.0100 #### [facility] [address] [place], [address] Eosinophils/100 WBC (Bld) 0.0 % Normal 0-5 [facility] Comment on above: Performed By: #### L 500.2500, L100.0100 #### [facility] [address] [place], [address] Erythrocyte distribution width (RBC) [Ratio] 16.2 % High 11.6-14.6 [facility] Comment on above: Performed By: #### L 500.2500, L100.0100 #### [facility] [address] [place], [address] Hematocrit (Bld) [Volume fraction] 31.4 % Low 37-47 [facility] Comment on above: Performed By: #### L 500.2500, L100.0100 #### [facility] [address] [place], [address] Hemoglobin (Bld) [Mass/Vol] 11.1 g/dL Low 12.0-15.0 [facility] Comment on above: Performed By: #### L 500.2500, L100.0100 #### [facility] [address] [place], [address] IG% 0.900 Normal 0.0-0.9 [facility] Comment on above: Result Comment: IG% - Immature Granulocytes (promyelocytes, myelocytes and metamyelocytes) > 1% indicates that a LEFT SHIFT is Present. Performed By: #### L 500.2500, L100.0100 #### [facility] [address] [place], [address] Lymphocytes/100 WBC (Bld) 15.4 % Low 19-41 [facility] Comment on above: Performed By: #### L 500.2500, L100.0100 #### [facility] [address] [place], [address] MCH (RBC) [Entitic mass] 35.1 pg High 27.0-32.0 [facility] Comment on above: Performed By: #### L 500.2500, L100.0100 #### [facility] [address] [place], [address] MCHC (RBC) [Mass/Vol] 35.4 g/dL Normal 32-[address] [facility] Comment on above: Performed By: #### L 500.2500, L100.0100 #### [facility] [address] [place], [address] MCV (RBC) [Entitic vol] 99.4 fL High 81-99 [facility] Comment on above: Performed By: #### L 500.2500, L100.0100 #### [facility] [address] [place], [address] Monocytes/100 WBC (Bld) 6.6 % Normal 0-10 [facility] Comment on above: Performed By: #### L 500.2500, L100.0100 #### [facility] [address] [place], [address] Neutrophils/100 WBC (Bld) 76.8 % High 47-70 [facility] Comment on above: Performed By: #### L 500.2500, L100.0100 #### [facility] [address] [place], [address] Nucleated RBC (Bld) [#/Vol] 0 10*3/uL Normal 0-5 [facility] Comment on above: Performed By: #### L 500.2500, L100.0100 #### [facility] [address] [place], [address] Platelet mean volume (Bld) [Entitic vol] 9.1 fL Normal 6.2-12.0 [facility] Comment on above: Performed By: #### L 500.2500, L100.0100 #### [facility] [address] [place], [address] Platelets (Bld) [#/Vol] 309 10*3/uL Normal 150-450 [facility] Comment on above: Performed By: #### L 500.2500, L100.0100 #### [facility] [address] [place], [address] RBC (Bld) [#/Vol] 3.16 10*6/uL Low 4.2-5.4 [facility] Comment on above: Performed By: #### L 500.2500, L100.0100 #### [facility] [address] [place], [address] RDW SD 60.1 fl High 35.1-43.9 [facility] Comment on above: Performed By: #### L 500.2500, L100.0100 #### [facility] [address] [place], [address] WBC (Bld) [#/Vol] 11.5 10*3/uL High 4.4-11.0 [facility] Comment on above: Performed By: #### L 500.2500, L100.0100 #### [facility] [address] [place], [address] CNPNon 07-11-2024 CNPN Normal [facility] CT ABD/PEL W IVCONon 025 CT ABD/PEL W IVCON Normal [facility] CT Abdomen and Pelvis W cont rast Hardeep 07-11-2024 IMPRESSION: 1. New and enlarging necrotic lesions in the right lower quadrant, likely worsening metastasis. No ascites. 2. No new hepatic lesion or lymphadenopathy. Healthcare Translator: PSCB Transcribe Date/Time: Jul 11 2024 2:41P Dictated by : MALLY MORRISON MD This examination was interpreted and the report reviewed and electronically signed by: MALLY MORRISON MD on Jul 11 2024 3:00PM [facility] DIVISION OF RADIOLOGY * * *Final Report* * * DATE OF EXAM: Jul 11 2024 2:32PM [facility] 0530 - CT ABD/PEL W IVCON / PROCEDURE REASON: Right lower quadrant abdominal pain * * * * Physician Interpretation * * * * EXAMINATION: CT ABDOMEN AND PELVIS WITH IV CONTRAST CLINICAL HISTORY: Right lower quadrant abdominal pain TECHNIQUE: CT of the abdomen and pelvis was performed using standard technique, scanning from just above the dome of the diaphragm to the symphysis pubis. MQ: CTAP_3 Contrast: IV: 80 ml of Omnipaque 350 CT Radiation dose: Integrated Dose-length product (DLP) for this visit = 202 mGy*cm. CT Dose Reduction Employed: Automated exposure control(AEC) and iterative recon COMPARISON: CT abdomen and pelvis 03/19/2024 and prior. RESULT: Liver: No mass. Stable 0.7 cm subcapsular cyst in the inferior segment 3. Biliary: No bile duct dilation. Gallbladder is unremarkable. Spleen: No mass. No splenomegaly. Pancreas: No mass or duct dilation. Adrenals: No mass. Kidneys: Symmetric nephrograms. No hydronephrosis or nephrolithiasis. Stable 1.1 cm cyst in the superior right renal pole and 1.1 cm cortical cyst in the anterior left interpolar region. GI tract: No dilation or wall thickening. Ileocecostomy, ileocolic anastomosis without obstruction. Lymph nodes: No abdominal or pelvic lymphadenopathy. Stable 0.5 cm right distal external iliac lymph node Mesentery/Peritoneum: Metastatic implants including: * Enlarging 3.8 cm necrotic lesion in the right lateral pelvis adjacent to the iliopsoas, previously 2.5 cm * New 1.2 cm mesenteric nodule in the right lower quadrant (5, 87) * Enlarging 1.7 cm mesenteric nodule in the right pelvis anterior to the proximal right external iliac, previously 0.6 cm (5, 82) Retroperitoneum: No mass. Vasculature: - Abdominal aorta and iliac arteries: No aneurysm. - Celiac and SMA: Patent without stenosis. - Portal venous system (SMV, splenic vein, portal vein and branches): Patent. - Hepatic veins: Patent. - Other: None Pelvis: New and enlarging metastatic implants in the right pelvis as above. No free pelvic fluid. Uterus and adnexa are unremarkable. Bladder is normal. Bones/Soft Tissues: Diffuse osseous demineralization. Lower thorax: No consolidation or effusion. Localizer images: No additional findings. DIVISION OF RADIOLOGY Provider, [facility] - 07/11/2024 * * *Final Report* * * DATE OF EXAM: Jul 11 2024 2:32PM [facility] 0530 - CT ABD/PEL W IVCON / PROCEDURE REASON: Right lower quadrant abdominal pain * * * * Physician Interpretation * * * * EXAMINATION: CT ABDOMEN AND PELVIS WITH IV CONTRAST CLINICAL HISTORY: Right lower quadrant abdominal pain TECHNIQUE: CT of the abdomen and pelvis was performed using standard technique, scanning from just above the dome of the diaphragm to the symphysis pubis. MQ: CTAP_3 Contrast: IV: 80 ml of Omnipaque 350 CT Radiation dose: Integrated Dose-length product (DLP) for this visit = 202 mGy*cm. CT Dose Reduction Employed: Automated exposure control(AEC) and iterative recon COMPARISON: CT abdomen and pelvis 03/19/2024 and prior. RESULT: Liver: No mass. Stable 0.7 cm subcapsular cyst in the inferior segment 3. Biliary: No bile duct dilation. Gallbladder is unremarkable. Spleen: No mass. No splenomegaly. Pancreas: No mass or duct dilation. Adrenals: No mass. Kidneys: Symmetric nephrograms. No hydronephrosis or nephrolithiasis. Stable 1.1 cm cyst in the superior right renal pole and 1.1 cm cortical cyst in the anterior left interpolar region. GI tract: No dilation or wall thickening. Ileocecostomy, ileocolic anastomosis without obstruction. Lymph nodes: No abdominal or pelvic lymphadenopathy. Stable 0.5 cm right distal external iliac lymph node Mesentery/Peritoneum: Metastatic implants including: * Enlarging 3.8 cm necrotic lesion in the right lateral pelvis adjacent to the iliopsoas, previously 2.5 cm * New 1.2 cm mesenteric nodule in the right lower quadrant (5, 87) * Enlarging 1.7 cm mesenteric nodule in the right pelvis anterior to the proximal right external iliac, previously 0.6 cm (5, 82) Retroperitoneum: No mass. Vasculature: - Abdominal aorta and iliac arteries: No aneurysm. - Celiac and SMA: Patent without stenosis. - Portal venous system (SMV, splenic vein, portal vein and branches): Patent. - Hepatic veins: Patent. - Other: None Pelvis: New and enlarging metastatic implants in the right pelvis as above. No free pelvic fluid. Uterus and adnexa are unremarkable. Bladder is normal. Bones/Soft Tissues: Diffuse osseous demineralization. Lower thorax: No consolidation or effusion. Localizer images: No additional findings. IMPRESSION IMPRESSION: 1. New and enlarging necrotic lesions in the right lower quadrant, likely worsening metastasis. No ascites. 2. No new hepatic lesion or lymphadenopathy. Healthcare Translator: PSCB Transcribe Date/Time: Jul 11 2024 2:41P Dictated by : MALLY MORRISON MD This examination was interpreted and the report reviewed and electronically signed by: MALLY MORRISON MD on Jul 11 2024 3:00PM EST [facility] Radiology Study observation (narrative) [facility] CT Abdomen and Pelvis W cont rast IVOrdered By: Ccf Provider on 07-11-2024 [facility] Carbon dioxide, total [Moles /volume] in Central venous bloodOrdered By: Milagro Ying on 07-11-2024 CO2 [Moles/Vol] 23.1 mmol/L 21.0-32.0 [facility] Chloride assayOrdered By: Ronda Ying on 07-11-2024 Chloride [Moles/Vol] 99 mmol/L 98-108 [facility] Comprehensive Metabolic Prof ilon 07-11-2024 Albumin [Mass/Vol] 4.6 g/dL Normal 3.4-4.8 [facility] Comment on above: Performed By: #### L 500.2500, L100.0100 #### [facility] [address] [place], [address] Albumin/Globulin [Mass ratio] 1.6 {ratio} Normal 0.9-2.4 [facility] Comment on above: Performed By: #### L 500.2500, L100.0100 #### [facility] [address] [place], [address] ALK PHOS 56 U/L Normal 35-104 [facility] Comment on above: Performed By: #### L 500.2500, L100.0100 #### [facility] [address] [place], [address] ALT [Catalytic activity/Vol] 10 U/L Normal <=34 [facility] Comment on above: Performed By: #### L 500.2500, L100.0100 #### [facility] [address] [place], [address] AST [Catalytic activity/Vol] 23 U/L Normal <=31 [facility] Comment on above: Performed By: #### L 500.2500, L100.0100 #### [facility] [address] [place], [address] Bilirubin [Mass/Vol] 0.55 mg/dL Normal 0.00-1.30 [facility] Comment on above: Performed By: #### L 500.2500, L100.0100 #### [facility] [address] [place], [address] BUN/CRE 25.9 RATIO High 10-20 [facility] Comment on above: Performed By: #### L 500.2500, L100.0100 #### [facility] [address] [place], [address] Calcium [Mass/Vol] 9.5 mg/dL Normal 7.6-11.0 [facility] Comment on above: Performed By: #### L 500.2500, L100.0100 #### [facility] [address] [place], [address] Chloride [Moles/Vol] 99 mmol/L Normal 98-108 [facility] Comment on above: Performed By: #### L 500.2500, L100.0100 #### [facility] [address] [place], [address] CO2 [Moles/Vol] 23.1 mmol/L Normal 21.0-32.0 [facility] Comment on above: Performed By: #### L 500.2500, L100.0100 #### [facility] [address] [place], [address] Creatinine [Mass/Vol] 0.72 mg/dL Normal 0.70-1.[address] [facility] Comment on above: Performed By: #### L 500.2500, L100.0100 #### [facility] [address] [place], [address] ECRCL 46.24 ml/min Low 50-250 [facility] Comment on above: Performed By: #### L 500.2500, L100.0100 #### [facility] [address] [place], [address] GAP 15 Normal 5-15 [facility] Comment on above: Performed By: #### L 500.2500, L100.0100 #### [facility] [address] [place], [address] GFR/1.73 sq M.predicted among non-blacks MDRD (S/P/Bld) [Vol rate/Area] 92 mL/min/{1.73_m2} Normal >60 [facility] Comment on above: Result Comment: mL/m in/1.73m2 CKD-EPI Creatinine Equation (2020) Performed By: #### L 500.2500, L100.0100 #### [facility] [address] [place], [address] Globulin (S) [Mass/Vol] 2.9 g/dL Normal 2.2-4.2 [facility] Comment on above: Performed By: #### L 500.2500, L100.0100 #### [facility] [address] [place], [address] Glucose [Mass/Vol] 116 mg/dL High 70-99 [facility] Comment on above: Performed By: #### L 500.2500, L100.0100 #### [facility] [address] [place], [address] Potassium [Moles/Vol] 3.4 mmol/L Normal 3.3-5.[address] [facility] Comment on above: Performed By: #### L 500.2500, L100.0100 #### [facility] [address] [place], [address] Sodium [Moles/Vol] 137 mmol/L Normal 133-145 [facility] Comment on above: Performed By: #### L 500.2500, L100.0100 #### [facility] [address] [place], [address] T PROT 7.5 g/dL Normal 5.9-8.4 [facility] Comment on above: Performed By: #### L 500.2500, L100.0100 #### [facility] [address] [place], [address] Urea nitrogen [Mass/Vol] 19 mg/dL Normal 4-19 [facility] Comment on above: Performed By: #### L 500.2500, L100.0100 #### [facility] [address] [place], [address] Emergency Department Summary on 07-11-2024 Emergency Department Summary [facility] Medical Records Department [address] [place] [address] Emergency Department Summary 07/11/24 MR#: [id number] Acct: [id number] Name: LAKESHA KOCH ILENE Rep #: [id number] : 1960 64 From: Milagro Ying DO PCP: Aubrey Lopez [employer] Status:DEP ER Location: ED HPI History of Present Illness Chief Complaint: Nausea/Vomiting Detail of Chief Complaint: Vomiting and concern for dehydration Informant: patient Narrative Narrative: Patient presents to the emergency department with complaint of vomiting that started yesterday. Patient states that she threw up about 5 or 6 times was mostly just dry heaves. She feels like she might be dehydrated. Patient states she is currently receiving oral chemotherapy for treatment of colon cancer. She is also been having some right lower quadrant abdominal pain for about 2 weeks. She denies fevers or chills or sweats. She has a CT scan scheduled for today 2:00 through the [facility]. Patient was told to come to the ER to get some IV fluids as she is concerned she may be dehydrated. She denies any urinary symptoms. She denies blood in her stool or hematemesis. She tells me she had a her appendix removed last year and at that time they also found colon cancer and did partial colectomy. Patient also had part of her fallopian tube on the right resected [facility] Medical History Hypotension Marijuana abuse Alcohol dependence ETOH abuse IBS (irritable bowel syndrome) Anxiety Depression Seizure Seizure disorder Home Medications ???Medication ???Instructions ???Recorded ???Last Taken ???Type clonazepam 0.25 mg disintegrating 0.25 mg PO PRN PRN Seizures 10/09 Unknown History tablet lacosamide 100 mg tablet 100 mg PO BID #60 tabs 08/25/23 Rx acetaminophen 500 mg capsule 1,000 mg PO QHS 10/18/23 10/17/23 History alendronate 70 mg tablet 70 mg PO QWEEK 10/18/23 Unknown Hi story buspirone 7.5 mg tablet 7.5 mg PO BID 10/18/23 10/18/23 Hi story calcium polycarbophil 625 mg 625 mg PO BID 10/18/23 10/18/23 Hi story tablet (Fiber Laxative (calcium polycarbophil)) divalproex 500 mg tablet,extended 500 mg PO BID 10/18/23 10/18/23 H istory release 24 hr fluconazole 200 mg tablet 200 mg PO X1 #2 tabs 10/18/23 Unkn own Rx (Diflucan) pantoprazole 40 mg tablet,delayed 40 mg PO DAILY 10/18/23 10/18/23 History release potassium chloride 20 mEq 20 meq PO DAILY 10/18/23 10/18/23 History tablet,extended release(part/cryst) sennosides 8.6 mg tablet (senna) 8.6 mg PO BID 10/18/23 10/18/23 Hi story sertraline 50 mg tablet 50 mg PO DAILY 10/18/23 10/18/23 H istory amoxicillin 875 mg-potassium 1 tab PO BID #26 tabs 12/13/23 Unk nown Rx clavulanate 125 mg tablet sulfamethoxazole 800 1 tab PO BID #26 tabs 12/13/23 Unk nown Rx mg-trimethoprim 160 mg tablet (Bactrim DS) ondansetron 4 mg disintegrating 4 mg PO Q6H PRN nausea and 5 Unknown Rx tablet vomiting #15 tabs ondansetron 4 mg disintegrating 4 mg PO Q8H PRN PRN Nausea #10 tab s 07/11/24 Unknown Rx tablet Allergy/AdvReac Type Severity Reaction Status Date / Time erythromycin base Allergy TONGUE Verified 04/08/24 14:38 PEELS Family History Sister Melanoma Father Prostate CA Surgical History 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 Social History household members: none housing: apartment Smoking Status: Former smoker alcohol intake: former year quit: 2020 substance use type: marijuana ROS ROS ED Review of Systems ROS Unobtainable: other Constitutional Constitutional ED: Reports lethargy; Denies chills, fever(s), sweats or weight loss Eyes Eyes: Denies blurry vision, change in vision or diplopia ENT ENT ED: Denies rhinorrhea or sore throat Cardiovascular Cardiovascular: Denies chest pain, orthopnea or racing heartbeat Respiratory/Chest Respiratory/Chest: Denies cough, dyspnea, dyspnea on exertion, orthopnea or sputum Gastrointestinal Gastrointestinal: Reports abdominal pain, nausea and vomiting; Denies diarrhea Genitourinary Genitourinary ED: Denies dysuria, hematuria or urinary frequency Musculoskeletal Musculoskeletal: Denies arthralgias, back pain, myalgias or neck pain Integumentary Denies abscess, Abrasions or rash Neurologic Neurologic: Denies headache(s) or weakness Psychiatric Psychiatric: Denies anxiety, depression or suicidal thoughts Endocrine Endocrinology: Denies polydipsia, polyphagia or polyuria Hematologic/Lymphatic Hematologic/Lymphatic: Denies easy bleeding, easy bruising or lymphad (more content not included)... Normal [facility] Eosinophil percentageOrdered By: Milagro Ying on 07-11-2024 Eosinophils/100 WBC (Bld) 0.0 % 0-5 [facility] Erythrocyte distribution wid th (RBC) [Ratio]Ordered By: Milagro Ying on 07-11-2024 Erythrocyte distribution width (RBC) [Entitic vol] 60.1 fL High 35.1-43.9 [facility] Erythrocyte distribution wid th ratioOrdered By: Milagro Ying on 07-11-2024 Erythrocyte distribution width (RBC) [Ratio] 16.2 % High 11.6-14.6 [facility] Erythrocyte distribution wid th standard deviationOrdered By: Milagro Ying on 07-11-2024 Erythrocyte distribution width (RBC) [Ratio] 60.1 fl High 35.1-43.9 [facility] Estimation of creatinine lupe aranceOrdered By: Milagro Ying on 07-11-2024 Estimated Creatinine Clearance Calc 46.24 ml/min Low 50-250 [facility] GFR/1.73 sq M.predicted mayco g non-blacks MDRD (S/P/Bld) [Vol rate/Area]Ordered By: Milagro Ying on 07-11-2024 Estimated GFR (MDRD) Non-Af Amer 92 >60 [facility] Comment on above: mL/min/1.73m2 CKD-EP I Creatinine Equation (2020) Glomerular filtration rate ( GFR) estimation/1.73 sq m using serum, plasma, or whole bOrdered By: Milagro Ying on 07-11-2024 GFR/1.73 sq M.predicted among non-blacks MDRD (S/P/Bld) [Vol rate/Area] 92 mL/min/{1.73_m2} >60 [facility] Comment on above: mL/min/1.73m2 CKD-EP I Creatinine Equation (2020) Hematocrit Auto (Bld) [Volum e fraction]Ordered By: Milagro Ying on 07-11-2024 Hematocrit (Bld) [Volume fraction] 31.4 % Low 37-47 [facility] Hemoglobin measurementOrdere d By: Milagro Ying on 07-11-2024 Hemoglobin (Bld) [Mass/Vol] 11.1 g/dL Low 12.0-15.0 [facility] Hyaline casts LM.LPF (Urine sed) [#/Area]Ordered By: Milagro Ying on 07-11-2024 Hyaline casts (Urine sed) [#/Area] 0 /[LPF] 0-5 [facility] Immature granulocytes/100 WB C Auto (Bld)Ordered By: Milagro Ying on 07-11-2024 Immature granulocytes/100 WBC (Bld) 0.900 % 0.0-0.9 [facility] Comment on above: IG% - Immature Granu locytes (promyelocytes, myelocytes and metamyelocytes) > 1% indicates that a LEFT SHIFT is Present. Ketones Test strip Ql (U)Ord ered By: Milagro Ying on 07-11-2024 Ketones Ql (U) Negative Negative [facility] - Chemistry and C hemistry - challengeOrdered By: Milagro Ying on 07-11-2024 AST [Catalytic activity/Vol] 23 U/L <32 [facility] Lipaseon 07-11-2024 Lipase [Catalytic activity/Vol] 56 U/L Normal 13-75 [facility] Comment on above: Result Comment: Efrem caldwell note: LIPASE revised reference range effective 22. New Lipase methodology. Expected to produce lower values than the previous assay method. NEW Reference Range: 13 - 75 U/L Performed By: #### L 500.2500, L100.0100 #### [facility] [address] [place] [address], [address] Lipase measurementOrdered By : Milagro Ying on 07-11-2024 Lipase [Catalytic activity/Vol] 56 U/L 13-75 [facility] Comment on above: Please note:LIPASE r evised reference range effective 22. New Lipase methodology. Expected to produce lower values than the previous assay method. NEW Reference Range: 13 - 75 U/L Lymphocytes Auto (Unsp spec) [#/Vol]Ordered By: Milagro Ying on 07-11-2024 Lymphocytes (Bld) [#/Vol] 1.77 10*3/uL 0.83-4.51 [facility] Lymphocytes/100 WBC Auto (Un sp spec)Ordered By: Milagro Ying on 07-11-2024 Lymphocytes/100 WBC (Bld) 15.4 % Low 19-41 [facility] MCV (mean corpuscular volume ) determinationOrdered By: Milagro Ying on 07-11-2024 MCV (RBC) [Entitic vol] 99.4 fL High 81-99 [facility] Mean corpuscular hemoglobin (MCH) determinationOrdered By: Milagro Ying on 07-11-2024 MCH (RBC) [Entitic mass] 35.1 pg High 27.0-32.0 [facility] Mean corpuscular hemoglobin concentration (MCHC) determinationOrdered By: Milagro Ying on 07-11-2024 MCHC (RBC) [Mass/Vol] 35.4 g/dL 32-[address] [facility] Mean platelet volume determi nationOrdered By: Milagro Ying on 07-11-2024 Platelet mean volume (Bld) [Entitic vol] 9.1 fL 6.2-12.0 [facility] Microscopic analysis of urin e for red blood cells (RBC)Ordered By: Milagro Ying on 07-11-2024 Microscopic analysis of urine for red blood cells (RBC) 0-5 SEEN /hpf 0-5 [facility] Monocyte percentageOrdered B y: Milagro Ying on 07-11-2024 Monocytes/100 WBC (Bld) 6.6 % 0-10 [facility] Mucus LM Ql (Urine sed)Order ed By: Milagro Ying on 07-11-2024 Mucus Ql (Urine sed) 0 SEEN /hpf [facility] Neutrophil percentageOrdered By: Milagro Ying on 07-11-2024 Neutrophils/100 WBC (Bld) 76.8 % High 47-70 [facility] Nitrite Test strip Ql (U)Ord ered By: Milagro Ying on 07-11-2024 Nitrite Ql (U) Negative Negative [facility] Nucleated red blood cell per centageOrdered By: Milagro Ying on 07-11-2024 Nucleated RBC/100 WBC (Bld) [Ratio] 0 % 0-5 [facility] Platelet countOrdered By: Ronda Ying on 07-11-2024 Platelets (Bld) [#/Vol] 309 10*3/uL 150-450 [facility] Potassium (Unsp spec) [Mass/ Vol]Ordered By: Milagro Ying on 07-11-2024 Potassium [Moles/Vol] 3.4 mmol/L 3.3-5.[address] [facility] Potassium measurement (mass/ volume)Ordered By: Milagro Ying on 07-11-2024 Potassium (Unsp spec) [Mass/Vol] 3.4 mmol/L 3.3-5.1 [facility] Protein Test strip Ql (U)Ord ered By: Milagro Ying on 07-11-2024 Protein Ql (U) TNP [facility] Comment on above: Test not performedSE E URINE CHEMISTRY PROTIEN ORDER FOR THIS RESULT. Protein, Urine (Random)on Protein (U) [Mass/Vol] 13.1 mg/dL High 0.0-12.0 [facility] Comment on above: Performed By: #### L 501.1930 #### [facility] [address] [place], [address] RBC Auto (Bld) [#/Vol]Ordere d By: Milagro Ying on 07-11-2024 RBC (Bld) [#/Vol] 3.16 10*6/uL Low 4.2-5.4 [facility] Serum creatinine measurement (mass/volume)Ordered By: Milagro Ying on 07-11-2024 Creatinine [Mass/Vol] 0.72 mg/dL 0.70-1.[address] [facility] Serum globulin measurementOr dered By: Milagro Ying on 07-11-2024 Globulin (S) [Mass/Vol] 2.9 g/dL 2.2-4.2 [facility] Serum glucose measurement (m ass/volume)Ordered By: Milagro Ying on 07-11-2024 Glucose [Mass/Vol] 116 mg/dL High 70-99 [facility] Serum or plasma alanine ramirez otransferase (ALT) measurementOrdered By: Milagro Ying on 07-11-2024 ALT [Catalytic activity/Vol] 10 U/L <35 [facility] Serum or plasma albumin renetta urement (mass/volume)Ordered By: Milagro Ying on 07-11-2024 Albumin [Mass/Vol] 4.6 g/dL 3.4-4.8 [facility] Serum or plasma albumin/glob ulin mass ratioOrdered By: Milagro Ying on 07-11-2024 Albumin/Globulin [Mass ratio] 1.6 {ratio} 0.9-2.4 [facility] Serum or plasma alkaline marquez sphatase measurementOrdered By: Milagro Ying on 07-11-2024 ALP [Catalytic activity/Vol] 56 U/L 35-104 [facility] Serum or plasma calcium renetta urement (mass/volume)Ordered By: Milagro Ying on 07-11-2024 Calcium [Mass/Vol] 9.5 mg/dL 7.6-11.0 [facility] Serum or plasma urea nitroge n measurement (mass/volume)Ordered By: Remus Stepan on 07-11-2024 Urea nitrogen [Mass/Vol] 19 mg/dL 4-19 [facility] Sodium levelOrdered By: Ashleyu s Stepan on 07-11-2024 Sodium [Moles/Vol] 137 mmol/L 133-145 [facility] Squamous epithelial cells de tection in urine sediment by light microscopyOrdered By: Milagro Ying on 07-11-2024 Epithelial cells.squamous LM Ql (Urine sed) 0 SEEN /hpf 5-10 [facility] Total proteinOrdered By: Ashley Ying on 07-11-2024 Protein [Mass/Vol] 7.5 g/dL 5.9-8.4 [facility] Urinalysis, Completeon 07-11 CAST,FINE GRAN 0-5 SEEN Normal 0-5 [facility] Comment on above: Order Comment: CLEAN CATCH Performed By: #### L 501.0 #### [facility] [address] [place], [address] CAST,HYALINE 0-5 SEEN Normal 0-5 [facility] Comment on above: Order Comment: CLEAN CATCH Performed By: #### L 501.0 #### [facility] [address] [place], [address] RBC 0-5 SEEN Normal 0-5 [facility] Comment on above: Order Comment: CLEAN CATCH Performed By: #### L 501.0 #### [facility] [address] [place], [address] WBC 0-5 SEEN Normal 0-5 [facility] Comment on above: Order Comment: CLEAN CATCH Performed By: #### L 501.0 #### [facility] [address] [place], [address] BACTERIA 0 SEEN Normal None Seen [facility] Comment on above: Order Comment: CLEAN CATCH Performed By: #### L 501.1930 #### [facility] [address] [place], [address] EPI,SQUAMOUS 0 SEEN Normal 5-10 [facility] Comment on above: Order Comment: CLEAN CATCH Performed By: #### L 501.1930 #### [facility] [address] [place], [address] Mucus Ql (Urine sed) 0 SEEN Normal [facility] Comment on above: Order Comment: CLEAN CATCH Performed By: #### L 501.1930 #### [facility] [address] [place], [address] Urine clarityOrdered By: Ashley Ying on 07-11-2024 Clarity (U) Clear Clear [facility] Urine color determinationOrd ered By: Milagro Ying on 07-11-2024 Color (U) Yellow Yellow [facility] Urine glucose detectionOrder ed By: Milagro Ying on 07-11-2024 Glucose Ql (U) Normal mg/dl Normal [facility] Urine leukocyte esterase det ection by dipstickOrdered By: Milagro Ying on 07-11-2024 Leukocyte esterase Test strip Ql (U) Negative Negative [facility] Urine pHOrdered By: Milagro humphreys on 07-11-2024 pH (U) 6.5 [pH] 5.0 - 8.0 [facility] Urine protein measurement (m ass/volume)Ordered By: Milagro Ying on 07-11-2024 Protein (U) [Mass/Vol] 13.1 mg/dL High 0.0-12.0 [facility] Urine sediment bacteria coun t by microscopy (number/high power field)Ordered By: Milagro Ying on 07-11-2024 Bacteria LM.HPF (Urine sed) [#/Area] 0 /[HPF] None Seen [facility] Urine sediment fine granular cast count by microscopy (number/low power field)Ordered By: Remus Stepan on 07-11-2024 Fine Granular Casts LM.LPF (Urine sed) [#/Area] 0-5 SEEN /lpf 0-5 [facility] Urine specific gravity measu rementOrdered By: Remus Ungromeo on 07-11-2024 Specific gravity (U) [Rel density] 1.010 1.002-1.03 0 [facility] Urine urobilinogen measureme ntOrdered By: Remus Ungromeo on 07-11-2024 Urobilinogen Ql (U) Normal mg/dl Normal [facility] White blood cell (WBC) count Ordered By: Remus Stepan on 07-11-2024 WBC (Bld) [#/Vol] 11.5 10*3/uL High 4.4-11.0 [facility] White blood cell countOrdere d By: Remus Ungromeo on 07-11-2024 White blood cell count 0-5 SEEN /hpf 0-5 [facility] CNPNon 07-04-2024 CNPN Normal [facility] CNPNon 07-02-2024 CNPN Normal [facility] CNCNPATEDon 06-25-2024 CNCNPATED Normal [facility] CBC W Auto Differential pane l (Bld)on 06-17-2024 Basophils (Bld) [#/Vol] 0.05 10*3/uL Normal <0.11 [facility] Comment on above: Order Comment: Speci men Type: BLOOD SPECIMENOrdering Facility: [facility] Address: [address] [place] [id number] Performed By: #### 5 7021-8 ####[facility] [id number] [place] [address] [place] Basophils/100 WBC (Bld) 0.8 % Normal [facility] Comment on above: Order Comment: Speci men Type: BLOOD SPECIMENOrdering Facility: [facility] Address: [address] [place] [id number] Performed By: #### 5 7021-8 ####[facility] [id number] [place] [address] [place] Differential cell count method Nom (Bld) Auto Normal [facility] Comment on above: Order Comment: Speci men Type: BLOOD SPECIMENOrdering Facility: [facility] Address: [address] [place] [address] Performed By: #### 5 7021-8 ####[facility] [id number] [place] [address] [place] Eosinophils (Bld) [#/Vol] 0.23 10*3/uL Normal <0.46 [facility] Comment on above: Order Comment: Speci men Type: BLOOD SPECIMENOrdering Facility: [facility] Address: [address] [place] [address] Performed By: #### 5 7021-8 ####[facility] [id number] [place] [address] [place] Eosinophils/100 WBC (Bld) 3.6 % Normal [facility] Comment on above: Order Comment: Speci men Type: BLOOD SPECIMENOrdering Facility: [facility] Address: [address] [place] [address] Performed By: #### 5 7021-8 ####[facility] [id number] [place] [address] [place] Erythrocyte distribution width (RBC) [Ratio] 20.2 % High 11.5-15.0 [facility] Comment on above: Order Comment: Speci men Type: BLOOD SPECIMENOrdering Facility: [facility] Address: [address] [place] [address] Performed By: #### 5 7021-8 ####[facility]ITALNCLI [id number] [place] [address] [place] Hematocrit (Bld) [Volume fraction] 33.8 % Low 36.0-46.0 [facility] Comment on above: Order Comment: Speci men Type: BLOOD SPECIMENOrdering Facility: [facility] Address: [address] [place] [address] Performed By: #### 5 7021-8 ####[facility] BISHNUCucaNCKELSIE [id number] [place] [address] [place] Hemoglobin (Bld) [Mass/Vol] 11.2 g/dL Low 11.5-15.5 [facility] Comment on above: Order Comment: Speci men Type: BLOOD SPECIMENOrdering Facility: [facility] Address: [address] [place] [address] Performed By: #### 5 7021-8 ####[facility] [id number] [place] [address] [place] Immature granulocytes (Bld) [#/Vol] 10*3/uL Normal <0.10 [facility] Comment on above: Order Comment: Speci men Type: BLOOD SPECIMENOrdering Facility: [facility] Address: [address] [place] [address] Performed By: #### 5 7021-8 ####[facility] CENTERLIA [id number] [place] [address] [place] Immature granulocytes/100 WBC (Bld) 0.3 % Normal [facility] Comment on above: Order Comment: Speci men Type: BLOOD SPECIMENOrdering Facility: [facility] Address: [address] [place] [address] Performed By: #### 5 7021-8 ####[facility]ITALNCLIA [id number] [place] [address] [place] Lymphocytes (Bld) [#/Vol] 1.80 10*3/uL Normal 1.00-4.00 [facility] Comment on above: Order Comment: Speci men Type: BLOOD SPECIMENOrdering Facility: [facility] Address: [address] [place] [address] Performed By: #### 5 7021-8 ####[facility]A [id number] [place] [address] [place] Lymphocytes/100 WBC (Bld) 28.1 % Normal [facility] Comment on above: Order Comment: Speci men Type: BLOOD SPECIMENOrdering Facility: [facility] Address: [address] [place] [address] Performed By: #### 5 7021-8 ####[facility] [id number] [place] [address] [place] MCH (RBC) [Entitic mass] 33.3 pg Normal 26.0-34.0 [facility] Comment on above: Order Comment: Speci men Type: BLOOD SPECIMENOrdering Facility: [facility] Address: [address] [place] [address] Performed By: #### 5 7021-8 ####[facility] [id number] [place] [address] [place] MCHC (RBC) [Mass/Vol] 33.1 g/dL Normal 30.5-36.0 [facility] Comment on above: Order Comment: Speci men Type: BLOOD SPECIMENOrdering Facility: [facility] Address: [address] [place] [address] Performed By: #### 5 7021-8 ####[facility] [id number] [place] [address] [place] MCV (RBC) [Entitic vol] 100.6 fL High 80.0-100.0 [facility] Comment on above: Order Comment: Speci men Type: BLOOD SPECIMENOrdering Facility: [facility] Address: [address] [place] [address] Performed By: #### 5 7021-8 ####[facility] [id number] [place] [address] [place] Monocytes (Bld) [#/Vol] 0.52 10*3/uL Normal <0.87 [facility] Comment on above: Order Comment: Speci men Type: BLOOD SPECIMENOrdering Facility: [facility] Address: [address] [place] [address] Performed By: #### 5 7021-8 ####[facility] CENTERLIA [id number] [place] [address] [place] Monocytes/100 WBC (Bld) 8.1 % Normal [facility] Comment on above: Order Comment: Speci men Type: BLOOD SPECIMENOrdering Facility: [facility] Address: [address] [place] [address] Performed By: #### 5 7021-8 ####[facility]ENTERA [id number] [place] [address] [place] Neutrophils (Bld) [#/Vol] 3.79 10*3/uL Normal 1.45-7.50 [facility] Comment on above: Order Comment: Speci men Type: BLOOD SPECIMENOrdering Facility: [facility] Address: [address] [place] [address] Performed By: #### 5 7021-8 ####[facility]A [id number] [place] [address] [place] Neutrophils/100 WBC (Bld) 59.1 % Normal [facility] Comment on above: Order Comment: Speci men Type: BLOOD SPECIMENOrdering Facility: [facility] Address: [address] [place] [address] Performed By: #### 5 7021-8 ####[facility]ITALNCLIA [id number] [place] [address] [place] Nucleated RBC (Bld) [#/Vol] 10*3/uL Normal <0.01 [facility] Comment on above: Order Comment: Speci men Type: BLOOD SPECIMENOrdering Facility: [facility] Address: [address] [place] [address] Performed By: #### 5 7021-8 ####[facility] [id number] [place] [address] [place] Nucleated RBC/100 WBC (Bld) [Ratio] 0.0 /100 WBC Normal [facility] Comment on above: Order Comment: Speci men Type: BLOOD SPECIMENOrdering Facility: [facility] Address: [address] [place] [address] Performed By: #### 5 7021-8 ####[facility] BISHNURENONCKELSIE [id number] [place] [address] [place] Platelet mean volume (Bld) [Entitic vol] 8.2 fL Low 9.0-12.7 [facility] Comment on above: Order Comment: Speci men Type: BLOOD SPECIMENOrdering Facility: [facility] Address: [address] [place] [address] Performed By: #### 5 7021-8 ####[facility] BISHNURENONCCALDERONA [id number] [place] [address] [place] Platelets (Bld) [#/Vol] 230 10*3/uL Normal 150-400 [facility] Comment on above: Order Comment: Speci men Type: BLOOD SPECIMENOrdering Facility: [facility] Address: [address] [place] [address] Performed By: #### 5 7021-8 ####[facility]ITALNCLIA [id number] [place] [address] [place] RBC (Bld) [#/Vol] 3.36 10*6/uL Low 3.90-5.20 [facility] Comment on above: Order Comment: Speci men Type: BLOOD SPECIMENOrdering Facility: [facility] Address: [address] [place] [address] Performed By: #### 5 7021-8 ####[facility] BISHNUWNCLIA [id number] [place] [address] [place] WBC (Bld) [#/Vol] 6.41 10*3/uL Normal 3.70-11.00 [facility] Comment on above: Order Comment: Speci men Type: BLOOD SPECIMENOrdering Facility: [facility] Address: [address] [place] [address] Performed By: #### 5 7021-8 ####[facility]ITALNCLIA [id number] [place] [address] [place] CNOVSPon 06-17-2024 CNOVSP Normal [facility] Comprehensive metabolic 2000 panelon 06-17-2024 Albumin [Mass/Vol] 4.1 g/dL Normal 3.9-4.9 [facility] Comment on above: Order Comment: Speci men Type: BLOOD SPECIMENOrdering Facility: [facility] Address: [address] [place] [address] Performed By: #### 2 4323-8 ####[facility]ITALNCLIA [id number] [place] [address] [place] ALP [Catalytic activity/Vol] 58 U/L Normal 34-123 [facility] Comment on above: Order Comment: Speci men Type: BLOOD SPECIMENOrdering Facility: [facility] Address: [address] [place] [address] Performed By: #### 2 4323-8 ####[facility]ITALNCLIA [id number] [place] [address] [place] ALT [Catalytic activity/Vol] U/L Low 7-38 [facility] Comment on above: Order Comment: Speci men Type: BLOOD SPECIMENOrdering Facility: [facility] Address: [address] [place] [address] Performed By: #### 2 4323-8 ####[facility] MILLTOWNCLIA [id number] [place] [address] [place] Anion gap [Moles/Vol] 11 mmol/L Normal 8-15 [facility] Comment on above: Order Comment: Speci men Type: BLOOD SPECIMENOrdering Facility: [facility] Address: [address] [place] [address] Performed By: #### 2 4323-8 ####[facility] MILLTOWNCLIA [id number] [place] [address] [place] AST [Catalytic activity/Vol] 13 U/L Normal 13-35 [facility] Comment on above: Order Comment: Speci men Type: BLOOD SPECIMENOrdering Facility: [facility] Address: [address] [place] [address] Performed By: #### 2 4323-8 ####[facility]ITALNCLIA [id number] [place] [address] [place] Bilirubin [Mass/Vol] 0.3 mg/dL Normal 0.2-1.3 [facility] Comment on above: Order Comment: Speci men Type: BLOOD SPECIMENOrdering Facility: [facility] Address: [address] [place] [address] Performed By: #### 2 4323-8 ####[facility] MILLTOWNCLIA [id number] [place] [address] [place] Calcium [Mass/Vol] 9.3 mg/dL Normal 8.5-10.2 [facility] Comment on above: Order Comment: Speci men Type: BLOOD SPECIMENOrdering Facility: [facility] Address: [address] [place] [address] Performed By: #### 2 4323-8 ####[facility] MILLTOWNCLIA [id number] [place] [address] [place] Chloride [Moles/Vol] 110 mmol/L High 98-107 [facility] Comment on above: Order Comment: Speci men Type: BLOOD SPECIMENOrdering Facility: [facility] Address: [address] [place] [address] Performed By: #### 2 4323-8 ####[facility] [id number] [place] [address] [place] CO2 [Moles/Vol] 19 mmol/L Low 22-30 [facility] Comment on above: Order Comment: Speci men Type: BLOOD SPECIMENOrdering Facility: [facility] Address: [address] [place] [address] Performed By: #### 2 4323-8 ####[facility] [id number] [place] [address] [place] Creatinine [Mass/Vol] 0.63 mg/dL Normal 0.58-0.96 [facility] Comment on above: Order Comment: Speci men Type: BLOOD SPECIMENOrdering Facility: [facility] Address: [address] [place] [address] Performed By: #### 2 4323-8 ####[facility] [id number] [place] [address] [place] Creatinine and Glomerular filtration rate.predicted panel (S/P/Bld) 99 mL/min/1.73m??? Normal >=60 [facility] Comment on above: Order Comment: Speci men Type: BLOOD SPECIMENOrdering Facility: [facility] Address: [address] [place] [address] Result Comment: Sana mated Glomerular Filtration Rate (eGFR) is calculated using the 2020 CKD-EPI creatinine equation. This equation utilizes serum creatinine, sex, and age as parameters. The creatinine assay has traceable calibration to isotope dilution-mass spectrometry. Refer to KDIGO guidelines for clinical interpretation. In patients with unstable renal function, e.g. those with acute kidney injury, the eGFR may not accurately reflect actual GFR. Performed By: #### 2 4323-8 ####[facility] BISHNUTOWNCLIA [id number] [place] [address] [place] Glucose [Mass/Vol] 115 mg/dL High 74-99 [facility] Comment on above: Order Comment: Speci men Type: BLOOD SPECIMENOrdering Facility: [facility] Address: [address] [place] [address] Result Comment: The [place] [employer] (ADA) provides guidance for cutoff values for fasting glucose and random glucose. The ADA defines fasting as no caloric intake for at least 8 hours. Fasting plasma glucose results between 100 to 125 mg/dL indicate increased risk for diabetes (prediabetes).Fasting plasma glucose results greater than or equal to 126 mg/dL meet the criteria for diagnosis of diabetes. In the absence of unequivocal hyperglycemia, results should be confirmed by repeat testing. In a patient with classic symptoms of hyperglycemia or hyperglycemic crisis, random plasma glucose results greater than or equal to 200 mg/dL meet the criteria for diagnosis of diabetes.Reference: Standards of Medical Care in Diabetes 2016, [place] [employer]. Diabetes Care. 2016.39(Suppl 1). Performed By: #### 2 4323-8 ####[facility]UNTA GORDAWNCLIA [id number] [place] [address] [place] Potassium [Moles/Vol] 3.9 mmol/L Normal 3.7-5.1 [facility] Comment on above: Order Comment: Speci men Type: BLOOD SPECIMENOrdering Facility: [facility] Address: [address] [place] [address] Performed By: #### 2 4323-8 ####[facility] BISHNUWNCLIA [id number] [place] [address] [place] Protein [Mass/Vol] 6.8 g/dL Normal 6.3-8.0 [facility] Comment on above: Order Comment: Speci men Type: BLOOD SPECIMENOrdering Facility: [facility] Address: [address] [place], [place] [id number] Performed By: #### 2 4323-8 ####[facility] MILLTOWNCLIA [id number] [place] [address] [place] Sodium [Moles/Vol] 140 mmol/L Normal 136-144 [facility] Comment on above: Order Comment: Speci men Type: BLOOD SPECIMENOrdering Facility: [facility] Address: [address] [place] [address] Performed By: #### 2 4323-8 ####[facility] MILLWNCLIA [id number] [place] [address] [place] Urea nitrogen [Mass/Vol] 14 mg/dL Normal 7-21 [facility] Comment on above: Order Comment: Speci men Type: BLOOD SPECIMENOrdering Facility: [facility] Address: [address] [place] [address] Performed By: #### 2 4323-8 ####[facility]ITALNCLIA [id number] [place] [address] [place] CNPNon 05-29-2024 CNPN Normal [facility] CBC W Auto Differential pane l (Bld)on 05-27-2024 Basophils (Bld) [#/Vol] 0.06 10*3/uL Normal <0.11 [facility] Comment on above: Order Comment: Speci men Type: BLOOD SPECIMENOrdering Facility: [facility] Address: [address] [place] [address] Performed By: #### 5 7021-8 ####[facility] MILLWNCLIA [id number] [place] [address] [place] Basophils/100 WBC (Bld) 0.8 % Normal [facility] Comment on above: Order Comment: Speci men Type: BLOOD SPECIMENOrdering Facility: [facility] Address: [address] [place] [address] Performed By: #### 5 7021-8 ####[facility] MILLWNCLIA [id number] [place] [address] [place] Differential cell count method Nom (Bld) Auto Normal [facility] Comment on above: Order Comment: Speci men Type: BLOOD SPECIMENOrdering Facility: [facility] Address: [address] [place] [address] Performed By: #### 5 7021-8 ####[facility] CENTERLetha [id number] [place] [address] [place] Eosinophils (Bld) [#/Vol] 0.15 10*3/uL Normal <0.46 [facility] Comment on above: Order Comment: Speci men Type: BLOOD SPECIMENOrdering Facility: [facility] Address: [address] [place] [address] Performed By: #### 5 7021-8 ####[facility] HOSPITALNCLetha [id number] [place] [address] [place] Eosinophils/100 WBC (Bld) 1.9 % Normal [facility] Comment on above: Order Comment: Speci men Type: BLOOD SPECIMENOrdering Facility: [facility] Address: [address] [place] [address] Performed By: #### 5 7021-8 ####[facility]ITALNCLI [id number] [place] [address] [place] Erythrocyte distribution width (RBC) [Ratio] 20.0 % High 11.5-15.0 [facility] Comment on above: Order Comment: Speci men Type: BLOOD SPECIMENOrdering Facility: [facility] Address: [address] [place] [address] Performed By: #### 5 7021-8 ####[facility]ITALNCLI [id number] [place] [address] [place] Hematocrit (Bld) [Volume fraction] 37.3 % Normal 36.0-46.0 [facility] Comment on above: Order Comment: Speci men Type: BLOOD SPECIMENOrdering Facility: [facility] Address: [address] [place] [address] Performed By: #### 5 7021-8 ####[facility] BISHNUCucaNCKELSIE [id number] [place] [address] [place] Hemoglobin (Bld) [Mass/Vol] 13.2 g/dL Normal 11.5-15.5 [facility] Comment on above: Order Comment: Speci men Type: BLOOD SPECIMENOrdering Facility: [facility] Address: [address] [place], [place] [address] Performed By: #### 5 7021-8 ####[facility] HOSPITALNCLetha [id number] [place] [address] [place] Immature granulocytes (Bld) [#/Vol] 0.06 10*3/uL Normal <0.10 [facility] Comment on above: Order Comment: Speci men Type: BLOOD SPECIMENOrdering Facility: [facility] Address: [address] [place], [place] [address] Performed By: #### 5 7021-8 ####[facility]ITALNCLIA [id number] [place] [address] [place] Immature granulocytes/100 WBC (Bld) 0.8 % Normal [facility] Comment on above: Order Comment: Speci men Type: BLOOD SPECIMENOrdering Facility: [facility] Address: [address] [place] [address] Performed By: #### 5 7021-8 ####[facility]ITALNCLIA [id number] [place] [address] [place] Lymphocytes (Bld) [#/Vol] 2.61 10*3/uL Normal 1.00-4.00 [facility] Comment on above: Order Comment: Speci men Type: BLOOD SPECIMENOrdering Facility: [facility] Address: [address] [place] [address] Performed By: #### 5 7021-8 ####[facility] HOSPITALKALIELIA [id number] [place] [address] [place] Lymphocytes/100 WBC (Bld) 33.5 % Normal [facility] Comment on above: Order Comment: Speci men Type: BLOOD SPECIMENOrdering Facility: [facility] Address: [address] [place] [address] Performed By: #### 5 7021-8 ####[facility] HOSPITALKALIELIA [id number] [place] [address] [place] MCH (RBC) [Entitic mass] 32.8 pg Normal 26.0-34.0 [facility] Comment on above: Order Comment: Speci men Type: BLOOD SPECIMENOrdering Facility: [facility] Address: [address] [place] [address] Performed By: #### 5 7021-8 ####[facility] [id number] [place] [address] [place] MCHC (RBC) [Mass/Vol] 35.4 g/dL Normal 30.5-36.0 [facility] Comment on above: Order Comment: Speci men Type: BLOOD SPECIMENOrdering Facility: [facility] Address: [address] [place] [address] Performed By: #### 5 7021-8 ####[facility]ITALNCLIA [id number] [place] [address] [place] MCV (RBC) [Entitic vol] 92.8 fL Normal 80.0-100.0 [facility] Comment on above: Order Comment: Speci men Type: BLOOD SPECIMENOrdering Facility: [facility] Address: [address] [place] [address] Performed By: #### 5 7021-8 ####[facility] [id number] [place] [address] [place] Monocytes (Bld) [#/Vol] 0.88 10*3/uL High <0.87 [facility] Comment on above: Order Comment: Speci men Type: BLOOD SPECIMENOrdering Facility: [facility] Address: [address] [place] [address] Performed By: #### 5 7021-8 ####[facility] CENTERLIA [id number] [place] [address] [place] Monocytes/100 WBC (Bld) 11.3 % Normal [facility] Comment on above: Order Comment: Speci men Type: BLOOD SPECIMENOrdering Facility: [facility] Address: [address] [place] [address] Performed By: #### 5 7021-8 ####[facility]ITALNCLIA [id number] [place] [address] [place] Neutrophils (Bld) [#/Vol] 4.04 10*3/uL Normal 1.45-7.50 [facility] Comment on above: Order Comment: Speci men Type: BLOOD SPECIMENOrdering Facility: [facility] Address: [address] [place] [address] Performed By: #### 5 7021-8 ####[facility] CENTERLIA [id number] [place] [address] [place] Neutrophils/100 WBC (Bld) 51.7 % Normal [facility] Comment on above: Order Comment: Speci men Type: BLOOD SPECIMENOrdering Facility: [facility] Address: [address] [place] [address] Performed By: #### 5 7021-8 ####[facility] CENTERLIA [id number] [place] [address] [place] Nucleated RBC (Bld) [#/Vol] 10*3/uL Normal <0.01 [facility] Comment on above: Order Comment: Speci men Type: BLOOD SPECIMENOrdering Facility: [facility] Address: [address] [place] [address] Performed By: #### 5 7021-8 ####[facility] [id number] [place] [address] [place] Nucleated RBC/100 WBC (Bld) [Ratio] 0.0 /100 WBC Normal [facility] Comment on above: Order Comment: Speci men Type: BLOOD SPECIMENOrdering Facility: [facility] Address: [address] [place] [address] Performed By: #### 5 7021-8 ####[facility] BISHNURENONCKELSIE [id number] [place] [address] [place] Platelet mean volume (Bld) [Entitic vol] 8.5 fL Low 9.0-12.7 [facility] Comment on above: Order Comment: Speci men Type: BLOOD SPECIMENOrdering Facility: [facility] Address: [address] [place] [address] Performed By: #### 5 7021-8 ####[facility] BISHNURENONCCALDERONA [id number] [place] [address] [place] Platelets (Bld) [#/Vol] 278 10*3/uL Normal 150-400 [facility] Comment on above: Order Comment: Speci men Type: BLOOD SPECIMENOrdering Facility: [facility] Address: [address] [place] [address] Performed By: #### 5 7021-8 ####[facility]ITALNCLIA [id number] [place] [address] [place] RBC (Bld) [#/Vol] 4.02 10*6/uL Normal 3.90-5.20 [facility] Comment on above: Order Comment: Speci men Type: BLOOD SPECIMENOrdering Facility: [facility] [facility] Address: [address] [place] [address] Performed By: #### 5 7021-8 ####[facility] MILLTOWNCLIA [id number] [place] [address] [place] WBC (Bld) [#/Vol] 7.80 10*3/uL Normal 3.70-11.00 [facility] Comment on above: Order Comment: Speci men Type: BLOOD SPECIMENOrdering Facility: [facility] Address: [address] [place] [address] Performed By: #### 5 7021-8 ####[facility] MILLTOWNCLIA [id number] [place] [address] [place] Comprehensive metabolic 2000 panelon 05-27-2024 Albumin [Mass/Vol] 4.4 g/dL Normal 3.9-4.9 [facility] Comment on above: Order Comment: Speci men Type: BLOOD SPECIMENOrdering Facility: [facility] Address: [address] [place] [address] Performed By: #### 2 4323-8 ####[facility] MILLTOWNCLIA [id number] [place] [address] [place] ALP [Catalytic activity/Vol] 54 U/L Normal 34-123 [facility] Comment on above: Order Comment: Speci men Type: BLOOD SPECIMENOrdering Facility: [facility] Address: [address] [place] [address] Performed By: #### 2 4323-8 ####[facility] MILLTOWNCLIA [id number] [place] [address] [place] ALT [Catalytic activity/Vol] 9 U/L Normal 7-38 [facility] Comment on above: Order Comment: Speci men Type: BLOOD SPECIMENOrdering Facility: [facility] Address: [address] [place] [address] Performed By: #### 2 4323-8 ####[facility] MILLTOWNCLIA [id number] [place] [address] [place] Anion gap [Moles/Vol] 14 mmol/L Normal 8-15 [facility] Comment on above: Order Comment: Speci men Type: BLOOD SPECIMENOrdering Facility: [facility] Address: [address] [place] [address] Performed By: #### 2 4323-8 ####[facility] MILLTOWNCLIA [id number] [place] [address] [place] AST [Catalytic activity/Vol] 17 U/L Normal 13-35 [facility] Comment on above: Order Comment: Speci men Type: BLOOD SPECIMENOrdering Facility: [facility] Address: [address] [place] [address] Performed By: #### 2 4323-8 ####[facility]ITALNCLIA [id number] [place] [address] [place] Bilirubin [Mass/Vol] 0.5 mg/dL Normal 0.2-1.3 [facility] Comment on above: Order Comment: Speci men Type: BLOOD SPECIMENOrdering Facility: [facility] Address: [address] [place] [address] Performed By: #### 2 4323-8 ####[facility] GORDAWNCLIA [id number] [place] [address] [place] Calcium [Mass/Vol] 9.7 mg/dL Normal 8.5-10.2 [facility] Comment on above: Order Comment: Speci men Type: BLOOD SPECIMENOrdering Facility: [facility] Address: [address] [place] [address] Performed By: #### 2 4323-8 ####[facility] MILLWNCLIA [id number] [place] [address] [place] Chloride [Moles/Vol] 96 mmol/L Low 98-107 [facility] Comment on above: Order Comment: Speci men Type: BLOOD SPECIMENOrdering Facility: [facility] Address: [address] [place] [address] Performed By: #### 2 4323-8 ####[facility] BISHNURENONCLI [id number] [place] [address] [place] CO2 [Moles/Vol] 26 mmol/L Normal 22-30 [facility] Comment on above: Order Comment: Speci men Type: BLOOD SPECIMENOrdering Facility: [facility] Address: [address] [place] [address] Performed By: #### 2 4323-8 ####[facility] [id number] [place] [address] [place] Creatinine [Mass/Vol] 0.66 mg/dL Normal 0.58-0.96 [facility] Comment on above: Order Comment: Speci men Type: BLOOD SPECIMENOrdering Facility: [facility] Address: [address] [place] [address] Performed By: #### 2 4323-8 ####[facility]ITALNCLIA [id number] [address] Creatinine and Glomerular filtration rate.predicted panel (S/P/Bld) 97 mL/min/1.73m??? Normal >=60 [facility] Comment on above: Order Comment: Speci men Type: BLOOD SPECIMENOrdering Facility: [facility] Address: [address] [place] [address] Result Comment: Sana mated Glomerular Filtration Rate (eGFR) is calculated using the 2020 CKD-EPI creatinine equation. This equation utilizes serum creatinine, sex, and age as parameters. The creatinine assay has traceable calibration to isotope dilution-mass spectrometry. Refer to KDIGO guidelines for clinical interpretation. In patients with unstable renal function, e.g. those with acute kidney injury, the eGFR may not accurately reflect actual GFR. Performed By: #### 2 4323-8 ####[facility] CENTERLIA [id number] [place] [address] [place] Glucose [Mass/Vol] 120 mg/dL High 74-99 [facility] Comment on above: Order Comment: Speci men Type: BLOOD SPECIMENOrdering Facility: [facility] Address: [address] [place], [place] [address] Result Comment: The [place] Diabetes Association (ADA) provides guidance for cutoff values for fasting glucose and random glucose. The ADA defines fasting as no caloric intake for at least 8 hours. Fasting plasma glucose results between 100 to 125 mg/dL indicate increased risk for diabetes (prediabetes).Fasting plasma glucose results greater than or equal to 126 mg/dL meet the criteria for diagnosis of diabetes. In the absence of unequivocal hyperglycemia, results should be confirmed by repeat testing. In a patient with classic symptoms of hyperglycemia or hyperglycemic crisis, random plasma glucose results greater than or equal to 200 mg/dL meet the criteria for diagnosis of diabetes.Reference: Standards of Medical Care in Diabetes 2016, [place] [employer]. Diabetes Care. 2016.39(Suppl 1). Performed By: #### 2 4323-8 ####[facility] MILLTOWNCLIA [id number] [place] [address] [place] Potassium [Moles/Vol] 3.3 mmol/L Low 3.7-5.1 [facility] Comment on above: Order Comment: Speci men Type: BLOOD SPECIMENOrdering Facility: [facility] Address: [address] [place], [place] [address] Performed By: #### 2 4323-8 ####[facility] MILLTOWNCLIA [id number] [place] [address] [place] Protein [Mass/Vol] 7.4 g/dL Normal 6.3-8.0 [facility] Comment on above: Order Comment: Speci men Type: BLOOD SPECIMENOrdering Facility: [facility] Address: [address] [place], [place] [address] Performed By: #### 2 4323-8 ####[facility]ITALNCLIA [id number] [place] [address] [place] Sodium [Moles/Vol] 136 mmol/L Normal 136-144 [facility] Comment on above: Order Comment: Speci men Type: BLOOD SPECIMENOrdering Facility: [facility] Address: [address] [place] [address] Performed By: #### 2 4323-8 ####[facility] CENTERKELSIE [id number] [place] [address] [place] Urea nitrogen [Mass/Vol] 16 mg/dL Normal 7-21 [facility] Comment on above: Order Comment: Speci men Type: BLOOD SPECIMENOrdering Facility: [facility] Address: [address] [place] [address] Performed By: #### 2 4323-8 ####[facility] HOSPITALKALIELetha [id number] [place] [address] [place] CNPNon 05-24-2024 CNPN Normal [facility] CNOVon 05-13-2024 CNOV Normal [facility] CNPTOUTREACHon 05-07-2024 CNPTOUTREACH Normal [facility] CBC W Auto Differential pane l (Bld)on 05-06-2024 Basophils (Bld) [#/Vol] 0.07 10*3/uL Normal <0.11 [facility] Comment on above: Order Comment: Speci men Type: BLOOD SPECIMENOrdering Facility: [facility] Address: [address] [place] [address] Performed By: #### 5 7021-8 ####[facility]ENTERA [id number] [place] [address] [place] Basophils/100 WBC (Bld) 1.1 % Normal [facility] Comment on above: Order Comment: Speci men Type: BLOOD SPECIMENOrdering Facility: [facility] Address: [address] [place] [address] Performed By: #### 5 7021-8 ####[facility]OSPITALNCLIA [id number] [place] [address] [place] Differential cell count method Nom (Bld) Auto Normal [facility] Comment on above: Order Comment: Speci men Type: BLOOD SPECIMENOrdering Facility: [facility] Address: [address] [place] [address] Performed By: #### 5 7021-8 ####[facility] [id number] [place] [address] [place] Eosinophils (Bld) [#/Vol] 0.23 10*3/uL Normal <0.46 [facility] Comment on above: Order Comment: Speci men Type: BLOOD SPECIMENOrdering Facility: [facility] Address: [address] [place] [address] Performed By: #### 5 7021-8 ####[facility] [id number] [place] [address] [place] Eosinophils/100 WBC (Bld) 3.6 % Normal [facility] Comment on above: Order Comment: Speci men Type: BLOOD SPECIMENOrdering Facility: [facility] Address: [address] [place] [address] Performed By: #### 5 7021-8 ####[facility] [id number] [place] [address] [place] Erythrocyte distribution width (RBC) [Ratio] 18.7 % High 11.5-15.0 [facility] Comment on above: Order Comment: Speci men Type: BLOOD SPECIMENOrdering Facility: [facility] Address: [address] [place] [address] Performed By: #### 5 7021-8 ####[facility] HOSPITALNCLI [id number] [place] [address] [place] Hematocrit (Bld) [Volume fraction] 36.6 % Normal 36.0-46.0 [facility] Comment on above: Order Comment: Speci men Type: BLOOD SPECIMENOrdering Facility: [facility] Address: [address] [place] [address] Performed By: #### 5 7021-8 ####[facility]ITALNCHUNTS[facility] [id number] [place] [address] [place] Hemoglobin (Bld) [Mass/Vol] 12.3 g/dL Normal 11.5-15.5 [facility] Comment on above: Order Comment: Speci men Type: BLOOD SPECIMENOrdering Facility: [facility] Address: [address] [place] [address] Performed By: #### 5 7021-8 ####[facility]ITALNCHUNTS[facility] [id number] [place] [address] [place] Immature granulocytes (Bld) [#/Vol] 0.03 10*3/uL Normal <0.10 [facility] Comment on above: Order Comment: Speci men Type: BLOOD SPECIMENOrdering Facility: [facility] Address: [address] [place] [address] Performed By: #### 5 7021-8 ####[facility]ITALNCLIA [id number] [place] [address] [place] Immature granulocytes/100 WBC (Bld) 0.5 % Normal [facility] Comment on above: Order Comment: Speci men Type: BLOOD SPECIMENOrdering Facility: [facility] Address: [address] [place] [address] Performed By: #### 5 7021-8 ####[facility]ITALNCLIA [id number] [place] [address] [place] Lymphocytes (Bld) [#/Vol] 2.41 10*3/uL Normal 1.00-4.00 [facility] Comment on above: Order Comment: Speci men Type: BLOOD SPECIMENOrdering Facility: [facility] Address: [address] [place] [address] Performed By: #### 5 7021-8 ####[facility] HOSPITALFUAD [id number] [address] [place] Lymphocytes/100 WBC (Bld) 37.4 % Normal [facility] Comment on above: Order Comment: Speci men Type: BLOOD SPECIMENOrdering Facility: [facility] Address: [address] [place] [address] Performed By: #### 5 7021-8 ####[facility]ITALNCHUNTS[facility] [id number] [place] [address] [place] MCH (RBC) [Entitic mass] 31.2 pg Normal 26.0-34.0 [facility] Comment on above: Order Comment: Speci men Type: BLOOD SPECIMENOrdering Facility: [facility] Address: [address] [place] [address] Performed By: #### 5 7021-8 ####[facility] HOSPITALNCA [id number] [place] [address] [place] MCHC (RBC) [Mass/Vol] 33.6 g/dL Normal 30.5-36.0 [facility] Comment on above: Order Comment: Speci men Type: BLOOD SPECIMENOrdering Facility: [facility] Address: [address] [place] [address] Performed By: #### 5 7021-8 ####[facility]OS[facility]ITALNCLIA [id number] [place] [address] [place] MCV (RBC) [Entitic vol] 92.9 fL Normal 80.0-100.0 [facility] Comment on above: Order Comment: Speci men Type: BLOOD SPECIMENOrdering Facility: [facility] Address: [address] [place] [address] Performed By: #### 5 7021-8 ####[facility] MILLTOWNCLIA [id number] [place] [address] [place] Monocytes (Bld) [#/Vol] 0.50 10*3/uL Normal <0.87 [facility] Comment on above: Order Comment: Speci men Type: BLOOD SPECIMENOrdering Facility: [facility] Address: [address] [place] [address] Performed By: #### 5 7021-8 ####[facility] PUNTA GORDAWSDLIA [id number] [place] [address] [place] Monocytes/100 WBC (Bld) 7.8 % Normal [facility] Comment on above: Order Comment: Speci men Type: BLOOD SPECIMENOrdering Facility: [facility] Address: [address] [place] [address] Performed By: #### 5 7021-8 ####[facility] CENTERLIA [id number] [place] [address] [place] Neutrophils (Bld) [#/Vol] 3.21 10*3/uL Normal 1.45-7.50 [facility] Comment on above: Order Comment: Speci men Type: BLOOD SPECIMENOrdering Facility: [facility] Address: [address] [place] [address] Performed By: #### 5 7021-8 ####[facility] CENTERLIA [id number] [place] [address] [place] Neutrophils/100 WBC (Bld) 49.6 % Normal [facility] Comment on above: Order Comment: Speci men Type: BLOOD SPECIMENOrdering Facility: [facility] Address: [address] [place] [address] Performed By: #### 5 7021-8 ####[facility]ITALNCLIA [id number] [place] [address] [place] Nucleated RBC (Bld) [#/Vol] 10*3/uL Normal <0.01 [facility] Comment on above: Order Comment: Speci men Type: BLOOD SPECIMENOrdering Facility: [facility] Address: [address] [place] [address] Performed By: #### 5 7021-8 ####[facility] [id number] [place] [address] [place] Nucleated RBC/100 WBC (Bld) [Ratio] 0.0 /100 WBC Normal [facility] Comment on above: Order Comment: Speci men Type: BLOOD SPECIMENOrdering Facility: [facility] Address: [address] [place] [address] Performed By: #### 5 7021-8 ####[facility] [id number] [place] [address] [place] Platelet mean volume (Bld) [Entitic vol] 8.2 fL Low 9.0-12.7 [facility] Comment on above: Order Comment: Speci men Type: BLOOD SPECIMENOrdering Facility: [facility] Address: [address] [place] [address] Performed By: #### 5 7021-8 ####[facility] [id number] [place] [address] [place] Platelets (Bld) [#/Vol] 234 10*3/uL Normal 150-400 [facility] Comment on above: Order Comment: Speci men Type: BLOOD SPECIMENOrdering Facility: [facility] Address: [address] [place] [address] Performed By: #### 5 7021-8 ####[facility] [id number] [place] [address] [place] RBC (Bld) [#/Vol] 3.94 10*6/uL Normal 3.90-5.20 [facility] Comment on above: Order Comment: Speci men Type: BLOOD SPECIMENOrdering Facility: [facility] Address: [address] [place] [address] Performed By: #### 5 7021-8 ####[facility]ITALNCLIA [id number] [place] [address] [place] WBC (Bld) [#/Vol] 6.45 10*3/uL Normal 3.70-11.00 [facility] Comment on above: Order Comment: Speci men Type: BLOOD SPECIMENOrdering Facility: [facility] Address: [address] [place], [place] [address] Performed By: #### 5 7021-8 ####[facility]ITALNCHUN[facility] [id number] [place] [address] [place] CNOVSPon 05-06-2024 CNOVSP Normal [facility] metabolic 2000 panelon 05-06-2024 Albumin [Mass/Vol] 4.4 g/dL Normal 3.9-4.9 [facility] Comment on above: Order Comment: Speci men Type: BLOOD SPECIMENOrdering Facility: [facility] Address: [address] [place] [address] Performed By: #### 2 4323-8 ####[facility]ITALNCLIA [id number] [place] [address] [place] ALP [Catalytic activity/Vol] 63 U/L Normal 34-123 [facility] Comment on above: Order Comment: Speci men Type: BLOOD SPECIMENOrdering Facility: [facility] Address: [address] [place] [address] Performed By: #### 2 4323-8 ####[facility]ITALNCLIA [id number] [place] [address] [place] ALT [Catalytic activity/Vol] 6 U/L Low 7-38 [facility] Comment on above: Order Comment: Speci men Type: BLOOD SPECIMENOrdering Facility: [facility] Address: [address] [place] [address] Performed By: #### 2 4323-8 ####[facility] MILLTOWNCLIA [id number] [place] [address] [place] Anion gap [Moles/Vol] 11 mmol/L Normal 8-15 [facility] Comment on above: Order Comment: Speci men Type: BLOOD SPECIMENOrdering Facility: [facility] Address: [address] [place] [address] Performed By: #### 2 4323-8 ####[facility] MILLTOWNCLIA [id number] [place] [address] [place] AST [Catalytic activity/Vol] 15 U/L Normal 13-35 [facility] Comment on above: Order Comment: Speci men Type: BLOOD SPECIMENOrdering Facility: [facility] Address: [address] [place] [address] Performed By: #### 2 4323-8 ####[facility] MILLWNCLIA [id number] [place] [address] [place] Bilirubin [Mass/Vol] 0.2 mg/dL Normal 0.2-1.3 [facility] Comment on above: Order Comment: Speci men Type: BLOOD SPECIMENOrdering Facility: [facility] Address: [address] [place] [address] Performed By: #### 2 4323-8 ####[facility] MILLTOWNCLIA [id number] [place] [address] [place] Calcium [Mass/Vol] 9.7 mg/dL Normal 8.5-10.2 [facility] Comment on above: Order Comment: Speci men Type: BLOOD SPECIMENOrdering Facility: [facility] Address: [address] [place] [address] Performed By: #### 2 4323-8 ####[facility] MILLTOWNCLIA [id number] [place] [address] [place] Chloride [Moles/Vol] 102 mmol/L Normal 98-107 [facility] Comment on above: Order Comment: Speci men Type: BLOOD SPECIMENOrdering Facility: [facility] Address: [address] [place] [address] Performed By: #### 2 4323-8 ####[facility] [id number] [place] [address] [place] CO2 [Moles/Vol] 25 mmol/L Normal 22-30 [facility] Comment on above: Order Comment: Speci men Type: BLOOD SPECIMENOrdering Facility: [facility] Address: [address] [place] [address] Performed By: #### 2 4323-8 ####[facility] [id number] [place] [address] [place] Creatinine [Mass/Vol] 0.76 mg/dL Normal 0.58-0.96 [facility] Comment on above: Order Comment: Speci men Type: BLOOD SPECIMENOrdering Facility: [facility] Address: [address] [place] [address] Performed By: #### 2 4323-8 ####[facility] [id number] [place] [address] [place] [facility] Creatinine and Glomerular filtration rate.predicted panel (S/P/Bld) 87 mL/min/1.73m??? Normal >=60 [facility] Comment on above: Order Comment: Speci men Type: BLOOD SPECIMENOrdering Facility: [facility] Address: [address] [place] [address] Result Comment: Sana mated Glomerular Filtration Rate (eGFR) is calculated using the 2020 CKD-EPI creatinine equation. This equation utilizes serum creatinine, sex, and age as parameters. The creatinine assay has traceable calibration to isotope dilution-mass spectrometry. Refer to KDIGO guidelines for clinical interpretation. In patients with unstable renal function, e.g. those with acute kidney injury, the eGFR may not accurately reflect actual GFR. Performed By: #### 2 4323-8 ####[facility]ITALNCLI [id number] [place] [address] [place] Glucose [Mass/Vol] 88 mg/dL Normal 74-99 [facility] Comment on above: Order Comment: Umesh baugh Type: BLOOD SPECIMENOrdering Facility: [facility] Address: [address] [place] [address] Result Comment: The [place] Diabetes [employer] (ADA) provides guidance for cutoff values for fasting glucose and random glucose. The ADA defines fasting as no caloric intake for at least 8 hours. Fasting plasma glucose results between 100 to 125 mg/dL indicate increased risk for diabetes (prediabetes).Fasting plasma glucose results greater than or equal to 126 mg/dL meet the criteria for diagnosis of diabetes. In the absence of unequivocal hyperglycemia, results should be confirmed by repeat testing. In a patient with classic symptoms of hyperglycemia or hyperglycemic crisis, random plasma glucose results greater than or equal to 200 mg/dL meet the criteria for diagnosis of diabetes.Reference: Standards of Medical Care in Diabetes 2016, [place] [employer]. Diabetes Care. 2016.39(Suppl 1). Performed By: #### 2 4323-8 ####[facility]OSPITALNCA [id number] [place] [address] [place] Potassium [Moles/Vol] 4.2 mmol/L Normal 3.7-5.1 [facility] Comment on above: Order Comment: Umesh baugh Type: BLOOD SPECIMENOrdering Facility: [facility] Address: [address] [place] [address] Performed By: #### 2 4323-8 ####[facility] [id number] [place] [address] [place] Protein [Mass/Vol] 7.2 g/dL Normal 6.3-8.0 [facility] Comment on above: Order Comment: Umesh baugh Type: BLOOD SPECIMENOrdering Facility: [facility] Address: [address] [place] [address] Performed By: #### 2 4323-8 ####[facility]ITALNCLIA [id number] [place] [address] [place] Sodium [Moles/Vol] 138 mmol/L Normal 136-144 [facility] Comment on above: Order Comment: Speci men Type: BLOOD SPECIMENOrdering Facility: [facility] Address: [address] [place] [address] Performed By: #### 2 4323-8 ####[facility]ITALNCH[facility] [id number] [place] [address] [place] Urea nitrogen [Mass/Vol] 12 mg/dL Normal 7-21 [facility] Comment on above: Order Comment: Speci men Type: BLOOD SPECIMENOrdering Facility: [facility] Address: [address] [place] [address] Performed By: #### 2 4323-8 ####[facility]ITALNCLIA [id number] [place] [address] [place] CHEST WO IVCONon 05-03-19 CT CHEST WO IVCON Normal [facility] CBC W Auto Differential pane l (Bld)on 04-16-2024 Basophils (Bld) [#/Vol] 0.07 10*3/uL Normal <0.11 [facility] Comment on above: Order Comment: Speci men Type: BLOOD SPECIMENOrdering Facility: [facility] Address: [address] [place] [address] Performed By: #### 5 7021-8 ####[facility] [id number] [place] [address] [place] Basophils/100 WBC (Bld) 1.1 % Normal [facility] Comment on above: Order Comment: Speci men Type: BLOOD SPECIMENOrdering Facility: [facility] Address: [address] [place] [address] Performed By: #### 5 7021-8 ####[facility] BISHNUCucaKALIELIA [id number] [place] [address] [place] Differential cell count method Nom (Bld) Auto Normal [facility] Comment on above: Order Comment: Speci men Type: BLOOD SPECIMENOrdering Facility: [facility] Address: [address] [place] [address] Performed By: #### 5 7021-8 ####[facility] HOSPITALKALIELIA [id number] [place] [address] [place] Eosinophils (Bld) [#/Vol] 0.21 10*3/uL Normal <0.46 [facility] Comment on above: Order Comment: Speci men Type: BLOOD SPECIMENOrdering Facility: [facility] Address: [address] [place] [address] Performed By: #### 5 7021-8 ####[facility] HOSPITALKALIELIA [id number] [place] [address] [place] Eosinophils/100 WBC (Bld) 3.3 % Normal [facility] Comment on above: Order Comment: Speci men Type: BLOOD SPECIMENOrdering Facility: [facility] Address: [address] [place] [address] Performed By: #### 5 7021-8 ####[facility] HOSPITALKALIELIA [id number] [place] [address] [place] Erythrocyte distribution width (RBC) [Ratio] 18.1 % High 11.5-15.0 [facility] Comment on above: Order Comment: Speci men Type: BLOOD SPECIMENOrdering Facility: [facility] Address: [address] [place] [address] Performed By: #### 5 7021-8 ####[facility]ITALNCLIA [id number] [place] [address] [place] Hematocrit (Bld) [Volume fraction] 34.5 % Low 36.0-46.0 [facility] Comment on above: Order Comment: Speci men Type: BLOOD SPECIMENOrdering Facility: [facility] Address: [address] [place] [address] Performed By: #### 5 7021-8 ####[facility]ITALNCHUN[facility] [id number] [place] [address] [place] Hemoglobin (Bld) [Mass/Vol] 11.8 g/dL Normal 11.5-15.5 [facility] Comment on above: Order Comment: Speci men Type: BLOOD SPECIMENOrdering Facility: [facility] Address: [address] [place] [address] Performed By: #### 5 7021-8 ####[facility]ITALNCHUNTS[facility] [id number] [place] [address] [place] Immature granulocytes (Bld) [#/Vol] 10*3/uL Normal <0.10 [facility] Comment on above: Order Comment: Speci men Type: BLOOD SPECIMENOrdering Facility: [facility] Address: [address] [place] [address] Performed By: #### 5 7021-8 ####[facility]ITALNCLI [id number] [place] [address] [place] Immature granulocytes/100 WBC (Bld) 0.2 % Normal [facility] Comment on above: Order Comment: Speci men Type: BLOOD SPECIMENOrdering Facility: [facility] Address: [address] [place] [address] Performed By: #### 5 7021-8 ####[facility]ITALNCLI [id number] [place] [address] [place] Lymphocytes (Bld) [#/Vol] 2.17 10*3/uL Normal 1.00-4.00 [facility] Comment on above: Order Comment: Speci men Type: BLOOD SPECIMENOrdering Facility: [facility] Address: [address] [place] [address] Performed By: #### 5 7021-8 ####[facility] BISHNUCRUZITO [id number] [place] [address] [place] Lymphocytes/100 WBC (Bld) 34.4 % Normal [facility] Comment on above: Order Comment: Speci men Type: BLOOD SPECIMENOrdering Facility: [facility] Address: [address] [place] [address] Performed By: #### 5 7021-8 ####[facility] HOSPITALNCKELSIE [id number] [place] [address] [place] MCH (RBC) [Entitic mass] 31.3 pg Normal 26.0-34.0 [facility] Comment on above: Order Comment: Speci men Type: BLOOD SPECIMENOrdering Facility: [facility] Address: [address] [place] [address] Performed By: #### 5 7021-8 ####[facility] HOSPITALNCA [id number] [place] [address] [place] MCHC (RBC) [Mass/Vol] 34.2 g/dL Normal 30.5-36.0 [facility] Comment on above: Order Comment: Speci men Type: BLOOD SPECIMENOrdering Facility: [facility] Address: [address] [place] [address] Performed By: #### 5 7021-8 ####[facility]ITALNCLIA [id number] [place] [address] [place] MCV (RBC) [Entitic vol] 91.5 fL Normal 80.0-100.0 [facility] Comment on above: Order Comment: Speci men Type: BLOOD SPECIMENOrdering Facility: [facility] Address: [address] [place] [address] Performed By: #### 5 7021-8 ####[facility] MILLTOWNCLIA [id number] [place] [address] [place] Monocytes (Bld) [#/Vol] 0.52 10*3/uL Normal <0.87 [facility] Comment on above: Order Comment: Speci men Type: BLOOD SPECIMENOrdering Facility: [facility] Address: [address] [place] [address] Performed By: #### 5 7021-8 ####[facility] CENTERLIA [id number] [place] [address] [place] Monocytes/100 WBC (Bld) 8.2 % Normal [facility] Comment on above: Order Comment: Speci men Type: BLOOD SPECIMENOrdering Facility: [facility] Address: [address] [place] [address] Performed By: #### 5 7021-8 ####[facility] CENTERLIA [id number] [place] [address] [place] Neutrophils (Bld) [#/Vol] 3.33 10*3/uL Normal 1.45-7.50 [facility] Comment on above: Order Comment: Speci men Type: BLOOD SPECIMENOrdering Facility: [facility] Address: [address] [place] [address] Performed By: #### 5 7021-8 ####[facility] CENTERLIA [id number] [place] [address] [place] Neutrophils/100 WBC (Bld) 52.8 % Normal [facility] Comment on above: Order Comment: Speci men Type: BLOOD SPECIMENOrdering Facility: [facility] Address: [address] [place] [address] Performed By: #### 5 7021-8 ####[facility]ITALNCLIA [id number] [place] [address] [place] Nucleated RBC (Bld) [#/Vol] 10*3/uL Normal <0.01 [facility] Comment on above: Order Comment: Speci men Type: BLOOD SPECIMENOrdering Facility: [facility] Address: [address] [place] [address] Performed By: #### 5 7021-8 ####[facility] [id number] [place] [address] [place] Nucleated RBC/100 WBC (Bld) [Ratio] 0.0 /100 WBC Normal [facility] Comment on above: Order Comment: Speci men Type: BLOOD SPECIMENOrdering Facility: [facility] Address: [address] [place] [address] Performed By: #### 5 7021-8 ####[facility]ITALNCHUN[facility] [id number] [place] [address] [place] Platelet mean volume (Bld) [Entitic vol] 8.7 fL Low 9.0-12.7 [facility] Comment on above: Order Comment: Speci men Type: BLOOD SPECIMENOrdering Facility: [facility] Address: [address] [place] [address] Performed By: #### 5 7021-8 ####[facility] [id number] [place] [address] [place] Platelets (Bld) [#/Vol] 243 10*3/uL Normal 150-400 [facility] Comment on above: Order Comment: Speci men Type: BLOOD SPECIMENOrdering Facility: [facility] Address: [address] [place] [address] Performed By: #### 5 7021-8 ####[facility]ENTERA [id number] [place] [address] [place] RBC (Bld) [#/Vol] 3.77 10*6/uL Low 3.90-5.20 [facility] Comment on above: Order Comment: Speci men Type: BLOOD SPECIMENOrdering Facility: [facility] Address: [address] [place] [address] Performed By: #### 5 7021-8 ####[facility]UN[facility] GORDAWNCLIA [id number] [place] [address] [place] WBC (Bld) [#/Vol] 6.31 10*3/uL Normal 3.70-11.00 [facility] Comment on above: Order Comment: Speci men Type: BLOOD SPECIMENOrdering Facility: [facility] Address: [address] [place] [address] Performed By: #### 5 7021-8 ####[facility]ITALNCLIA [id number] [place] [address] [place] CNOVSPon 04-16-2024 CNOVSP Normal [facility] Comprehensive metabolic 2000 panelon 04-16-2024 Albumin [Mass/Vol] 3.9 g/dL Normal 3.9-4.9 [facility] Comment on above: Order Comment: Speci men Type: BLOOD SPECIMENOrdering Facility: [facility] Address: [address] [place] [address] Performed By: #### 2 4323-8 ####[facility]ITALNCLIA [id number] [place] [address] [place] ALP [Catalytic activity/Vol] 55 U/L Normal 34-123 [facility] Comment on above: Order Comment: Speci men Type: BLOOD SPECIMENOrdering Facility: [facility] Address: [address] [place] [address] Performed By: #### 2 4323-8 ####[facility]ITALNCLIA [id number] [place] [address] [place] ALT [Catalytic activity/Vol] 8 U/L Normal 7-38 [facility] Comment on above: Order Comment: Speci men Type: BLOOD SPECIMENOrdering Facility: [facility] Address: [address] [place] [address] Performed By: #### 2 4323-8 ####[facility] MILLTOWNCLIA [id number] [place] [address] [place] Anion gap [Moles/Vol] 10 mmol/L Normal 8-15 [facility] Comment on above: Order Comment: Speci men Type: BLOOD SPECIMENOrdering Facility: [facility] Address: [address] [place] [address] Performed By: #### 2 4323-8 ####[facility] GORDAWNCLIA [id number] [place] [address] [place] AST [Catalytic activity/Vol] 16 U/L Normal 13-35 [facility] Comment on above: Order Comment: Speci men Type: BLOOD SPECIMENOrdering Facility: [facility] Address: [address] [place] [address] Performed By: #### 2 4323-8 ####[facility] MILLWNCLIA [id number] [place] [address] [place] Bilirubin [Mass/Vol] 0.2 mg/dL Normal 0.2-1.3 [facility] Comment on above: Order Comment: Speci men Type: BLOOD SPECIMENOrdering Facility: [facility] Address: [address] [place] [address] Performed By: #### 2 4323-8 ####[facility] MILLTOWNCLIA [id number] [place] [address] [place] Calcium [Mass/Vol] 9.4 mg/dL Normal 8.5-10.2 [facility] Comment on above: Order Comment: Speci men Type: BLOOD SPECIMENOrdering Facility: [facility] Address: [address] [place] [address] Performed By: #### 2 4323-8 ####[facility]ITALNCLIA [id number] [place] [address] [place] Chloride [Moles/Vol] 100 mmol/L Normal 98-107 [facility] Comment on above: Order Comment: Speci men Type: BLOOD SPECIMENOrdering Facility: [facility] Address: [address] [place] [address] Performed By: #### 2 4323-8 ####[facility] BISHNUSELECT SPECIALTY HOSPITAL [facility] INDIANAPOLISLIA [id number] [place] [address] [place] CO2 [Moles/Vol] 29 mmol/L Normal 22-30 [facility] Comment on above: Order Comment: Speci men Type: BLOOD SPECIMENOrdering Facility: [facility] Address: [address] [place] [address] Performed By: #### 2 4323-8 ####[facility] CENTERLIA [id number] [place] [address] [place] Creatinine [Mass/Vol] 0.68 mg/dL Normal 0.58-0.96 [facility] Comment on above: Order Comment: Speci men Type: BLOOD SPECIMENOrdering Facility: [facility] Address: [address] [place] [address] Performed By: #### 2 4323-8 ####[facility] CENTERLIA [id number] [place] [address] [place] [facility] Creatinine and Glomerular filtration rate.predicted panel (S/P/Bld) 97 mL/min/1.73m??? Normal >=60 [facility] Comment on above: Order Comment: Speci men Type: BLOOD SPECIMENOrdering Facility: [facility] Address: [address] [place] [address] Result Comment: Sana mated Glomerular Filtration Rate (eGFR) is calculated using the 2020 CKD-EPI creatinine equation. This equation utilizes serum creatinine, sex, and age as parameters. The creatinine assay has traceable calibration to isotope dilution-mass spectrometry. Refer to KDIGO guidelines for clinical interpretation. In patients with unstable renal function, e.g. those with acute kidney injury, the eGFR may not accurately reflect actual GFR. Performed By: #### 2 4323-8 ####[facility]ITALNCLIA [id number] [place] [address] [place] Glucose [Mass/Vol] 107 mg/dL High 74-99 [facility] Comment on above: Order Comment: Speci men Type: BLOOD SPECIMENOrdering Facility: [facility] Address: [address] [place], [place] [id number] Result Comment: The [place] [employer] (ADA) provides guidance for cutoff values for fasting glucose and random glucose. The ADA defines fasting as no caloric intake for at least 8 hours. Fasting plasma glucose results between 100 to 125 mg/dL indicate increased risk for diabetes (prediabetes).Fasting plasma glucose results greater than or equal to 126 mg/dL meet the criteria for diagnosis of diabetes. In the absence of unequivocal hyperglycemia, results should be confirmed by repeat testing. In a patient with classic symptoms of hyperglycemia or hyperglycemic crisis, random plasma glucose results greater than or equal to 200 mg/dL meet the criteria for diagnosis of diabetes.Reference: Standards of Medical Care in Diabetes 2016, [place] [employer]. Diabetes Care. 2016.39(Suppl 1). Performed By: #### 2 4323-8 ####[facility]ENTERA [id number] [place] [address] [place] Potassium [Moles/Vol] 3.1 mmol/L Low 3.7-5.1 [facility] Comment on above: Order Comment: Speci men Type: BLOOD SPECIMENOrdering Facility: [facility] Address: [address] [place] [address] Performed By: #### 2 4323-8 ####[facility] [id number] [place] [address] [place] Protein [Mass/Vol] 6.5 g/dL Normal 6.3-8.0 [facility] Comment on above: Order Comment: Speci men Type: BLOOD SPECIMENOrdering Facility: [facility] Address: [address] [place] [address] Performed By: #### 2 4323-8 ####[facility] LALYWGUMEA [id number] [place] [address] [place] Sodium [Moles/Vol] 139 mmol/L Normal 136-144 [facility] Comment on above: Order Comment: Speci men Type: BLOOD SPECIMENOrdering Facility: [facility] Address: [address] [place] [address] Performed By: #### 2 4323-8 ####[facility] LALYWNCLIA [id number] [address] [place] Urea nitrogen [Mass/Vol] 13 mg/dL Normal 7-21 [facility] Comment on above: Order Comment: Speci men Type: BLOOD SPECIMENOrdering Facility: [facility] Address: [address] [place] [address] Performed By: #### 2 4323-8 ####[facility] CHRISTIANAMRIT RUFFINWNCLIA [id number] [address] [place] Absolute neutrophil countOrd ered By: Ankit Marsh on 04-08-2024 Neutrophils (Bld) [#/Vol] 5.4 10*3/uL 2.0-7.7 [facility] Albumin to globulin ratioOrd ered By: Ankit Marsh on 04-08-2024 Albumin/Globulin [Mass ratio] 1.1 {ratio} 0.9-2.4 [facility] Amorphous sediment detection in urine sediment by light microscopyOrdered By: Ankit Marsh on 04-08-2024 Amorphous sediment LM Ql (Urine sed) 1+ [facility] Basophil percentageOrdered B y: Ankit Marsh on 04-08-2024 Basophils/100 WBC (Bld) 0.6 % 0-1 [facility] Bilirubin Test strip Ql (U)O rdered By: Ankit Marsh on 04-08-2024 Bilirubin Ql (U) Negative Negative [facility] Bilirubin, totalOrdered By: Ankit Marsh on 04-08-2024 Bilirubin [Mass/Vol] 0.50 mg/dL 0.20-1.00 [facility] Comment on above: For patients on eltr ombopag therapy, use of Dimension Grawn TBIL is not recommended. Blood urea nitrogen (BUN)/cr eatinine ratioOrdered By: Ankit Marsh on 04-08-2024 Urea nitrogen/Creatinine [Mass ratio] 21.3 mg/mg High 10-20 [facility] CBC W/Diff, Automatedon 03-27 Absolute Lymph 1.99 X10 3/uL Normal 0.83-4.51 [facility] Comment on above: Performed By: #### L 500.2500, L100.0100 #### [facility] [address] [place], [address] Absolute Neut 5.4 X10 3/uL Normal 2.0-7.7 [facility] Comment on above: Performed By: #### L 500.2500, L100.0100 #### [facility] [address] [place], [address] Basophils/100 WBC (Bld) 0.6 % Normal 0-1 [facility] Comment on above: Performed By: #### L 500.2500, L100.0100 #### [facility] [address] [place], [address] Eosinophils/100 WBC (Bld) 0.1 % Normal 0-5 [facility] Comment on above: Performed By: #### L 500.2500, L100.0100 #### [facility] [address] [place], [address] Erythrocyte distribution width (RBC) [Ratio] 17.8 % High 11.6-14.6 [facility] Comment on above: Performed By: #### L 500.2500, L100.0100 #### [facility] [address] [place], [address] Hematocrit (Bld) [Volume fraction] 37.2 % Normal 37-47 [facility] Comment on above: Performed By: #### L 500.2500, L100.0100 #### [facility] [address] [place], [address] Hemoglobin (Bld) [Mass/Vol] 13.3 g/dL Normal 12.0-15.0 [facility] Comment on above: Performed By: #### L 500.2500, L100.0100 #### [facility] [address] [place], [address] IG% 0.400 Normal 0.0-0.9 [facility] Comment on above: Result Comment: IG% - Immature Granulocytes (promyelocytes, myelocytes and metamyelocytes) > 1% indicates that a LEFT SHIFT is Present. Performed By: #### L 500.2500, L100.0100 #### [facility] [address] [place], [address] Lymphocytes/100 WBC (Bld) 25.0 % Normal 19-41 [facility] Comment on above: Performed By: #### L 500.2500, L100.0100 #### [facility] [address] [place], [address] MCH (RBC) [Entitic mass] 31.3 pg Normal 27.0-32.0 [facility] Comment on above: Performed By: #### L 500.2500, L100.0100 #### [facility] [address] [place], [address] MCHC (RBC) [Mass/Vol] 35.8 g/dL Normal 32-[address] [facility] Comment on above: Performed By: #### L 500.2500, L100.0100 #### [facility] [address] [place], [address] MCV (RBC) [Entitic vol] 87.5 fL Normal 81-99 [facility] Comment on above: Performed By: #### L 500.2500, L100.0100 #### [facility] [address] [place], [address] Monocytes/100 WBC (Bld) 5.5 % Normal 0-10 [facility] Comment on above: Performed By: #### L 500.2500, L100.0100 #### [facility] [address] [place], [address] Neutrophils/100 WBC (Bld) 68.4 % Normal 47-70 [facility] Comment on above: Performed By: #### L 500.2500, L100.0100 #### [facility] [address] [place], [address] Nucleated RBC (Bld) [#/Vol] 0 10*3/uL Normal 0-5 [facility] Comment on above: Performed By: #### L 500.2500, L100.0100 #### [facility] [address] [place], [address] Platelet mean volume (Bld) [Entitic vol] 8.8 fL Normal 6.2-12.0 [facility] Comment on above: Performed By: #### L 500.2500, L100.0100 #### [facility] [address] [place], [address] Platelets (Bld) [#/Vol] 275 10*3/uL Normal 150-450 [facility] Comment on above: Performed By: #### L 500.2500, L100.0100 #### [facility] [address] [place], [address] RBC (Bld) [#/Vol] 4.25 10*6/uL Normal 4.2-5.4 [facility] Comment on above: Performed By: #### L 500.2500, L100.0100 #### [facility] [address] [place], [address] RDW SD 56.0 fl High 35.1-43.9 [facility] Comment on above: Performed By: #### L 500.2500, L100.0100 #### [facility] [address] [place], [address] WBC (Bld) [#/Vol] 8.0 10*3/uL Normal 4.4-11.0 [facility] Comment on above: Performed By: #### L 500.2500, L100.0100 #### [facility] [address] [place], [address] CNOVon 04-08-2024 CNOV Normal [facility] CNPNon 04-08-2024 CNPN Normal [facility] Carbon dioxide measurementOr dered By: Ankit Marsh on 04-08-2024 CO2 [Moles/Vol] 24.0 mmol/L 21.0-32.0 [facility] Chloride measurementOrdered By: Ankit Marsh on 04-08-2024 Chloride [Moles/Vol] 101 mmol/L 98-107 [facility] Comprehensive Metabolic Prof ilon 04-08-2024 Albumin [Mass/Vol] 3.8 g/dL Normal 3.2-5.0 [facility] Comment on above: Performed By: #### L 500.2500, L100.0100 #### [facility] [address] [place], [address] Albumin/Globulin [Mass ratio] 1.1 {ratio} Normal 0.9-2.4 [facility] Comment on above: Performed By: #### L 500.2500, L100.0100 #### [facility] [address] [place], [address] ALK P 45 U/L Normal 45-117 [facility] Comment on above: Performed By: #### L 500.2500, L100.0100 #### [facility] [facility] [address] [place], [address] ALT [Catalytic activity/Vol] 11 U/L Low 13-56 [facility] Comment on above: Performed By: #### L 500.2500, L100.0100 #### [facility] [address] [place], [address] AST [Catalytic activity/Vol] 18 U/L Normal 15-37 [facility] Comment on above: Performed By: #### L 500.2500, L100.0100 #### [facility] [address] [place], [address] Bilirubin [Mass/Vol] 0.50 mg/dL Normal 0.20-1.00 [facility] Comment on above: Result Comment: For patients on eltrombopag therapy, use of Dimension Grawn TBIL is not recommended. Performed By: #### L 500.2500, L100.0100 #### [facility] [address] [place], [address] BUN/CRE 21.3 RATIO High 10-20 [facility] Comment on above: Performed By: #### L 500.2500, L100.0100 #### [facility] [address] [place], [address] CA,Total 9.5 mg/dL Normal 8.5-10.1 [facility] Comment on above: Performed By: #### L 500.2500, L100.0100 #### [facility] [address] [place], [address] Chloride [Moles/Vol] 101 mmol/L Normal 98-107 [facility] Comment on above: Performed By: #### L 500.2500, L100.0100 #### [facility] [address] [place], [address] CO2 [Moles/Vol] 24.0 mmol/L Normal 21.0-32.0 [facility] Comment on above: Performed By: #### L 500.2500, L100.0100 #### [facility] [address] [place], [address] Creatinine [Mass/Vol] 0.66 mg/dL Normal 0.55-1.[address] [facility] Comment on above: Result Comment: The validity of the calculated GFR GFRAA in patients over 70 years has not been determined. Clinical correlation is essential. Performed By: #### L 500.2500, L100.0100 #### [facility] [address] [place], [address] ECRCL 46.69 ml/min Normal [facility] Comment on above: Performed By: #### L 500.2500, L100.0100 #### [facility] [address] [place], [address] EST GFR - AA 116 mL/min Normal >60 [facility] Comment on above: Result Comment: Afri can Estonian GFR Calc Performed By: #### L 500.2500, L100.0100 #### [facility] [address] [place], [address] GAP 11 Normal 5-15 [facility] Comment on above: Performed By: #### L 500.2500, L100.0100 #### [facility] [address] [place], [address] GFR/1.73 sq M.predicted among non-blacks MDRD (S/P/Bld) [Vol rate/Area] 96 mL/min/{1.73_m2} Normal >60 [facility] Comment on above: Result Comment: Non- GFR Calc Performed By: #### L 500.2500, L100.0100 #### [facility] [address] [place], [address] Globulin (S) [Mass/Vol] 3.6 g/dL Normal 2.2-4.2 [facility] Comment on above: Performed By: #### L 500.2500, L100.0100 #### [facility] [address] [place], [address] Glucose [Mass/Vol] 113 mg/dL High 74-106 [facility] Comment on above: Result Comment: Fast ing Glucose result from 100 to 125 mg/dL suggests IMPAIRED HOMEOSTASIS per A.D.A. criteria. Performed By: #### L 500.2500, L100.0100 #### [facility] [address] [place], [address] Potassium [Moles/Vol] 2.7 mmol/L Invalid Interpretation Code 3.5-5.1 [facility] Comment on above: Result Comment: Crit ical Result(s) Called at: 16:35:33 04/08/2024 by: LISBETH KENNEDY. Results read back by Shailesh Klein Performed By: #### L 500.2500, L100.0100 #### [facility] [address] [place], [address] Sodium [Moles/Vol] 136 mmol/L Normal 136-145 [facility] Comment on above: Performed By: #### L 500.2500, L100.0100 #### [facility] [address] [place], [address] T PROT 7.4 g/dL Normal 6.4-8.2 [facility] Comment on above: Performed By: #### L 500.2500, L100.0100 #### [facility] [address] [place], [address] Urea nitrogen [Mass/Vol] 14 mg/dL Normal 7-18 [facility] Comment on above: Performed By: #### L 500.2500, L100.0100 #### [facility] [address] [place], [address] Emergency Department Summary on 04-08-2024 Emergency Department Summary [facility] Medical Records Department [address] [place] [address] Emergency Department Summary 04/08/24 MR#: [id number] Acct: [id number] Name: LAKESHA KOCH Rep #: [id number] : 1960 64 From: Ankit Marsh MD PCP: Christie Sánchez Tana, [employer]-C Status:REG ER Location: ED HPI History of Present Illness Chief Complaint: Nausea/Vomiting/Diarrhea Narrative Narrative: 64-year-old female past medical history of colon carcinoma with colon resection is on oral chemotherapy, presents with a few days of nausea, vomiting, and diarrhea. She states that the vomiting started first. Over the last 24 hours she has had 3 or 4 episodes of vomiting. She denies any abdominal pain with this, no fevers or chills, but she is cold. She states that she went to urgent care, and she feels dehydrated. They sent her to the emergency department for evaluation and IV fluids. She denies any exacerbating or alleviating factors but states that the vomiting is improving and that Monday, 2 days ago was the worst. [facility] Medical History Hypotension Marijuana abuse Alcohol dependence ETOH abuse IBS (irritable bowel syndrome) Anxiety Depression Seizure Seizure disorder Home Medications ???Medication ???Instructions ???Recorded ???Last Taken ???Type clonazepam 0.25 mg disintegrating 0.25 mg PO PRN PRN Seizures 10/10/19 Unknown History tablet lacosamide 100 mg tablet 100 mg PO BID #60 tabs 08/25/23 10/18/23 Rx acetaminophen 500 mg capsule 1,000 mg PO QHS 10/18/23 10/17/23 History alendronate 70 mg tablet 70 mg PO QWEEK 10/18/23 Unknown History buspirone 7.5 mg tablet 7.5 mg PO BID 10/18/23 10/18/23 History calcium polycarbophil 625 mg 625 mg PO BID 10/18/23 10/18/23 History tablet (Fiber Laxative (calcium polycarbophil)) divalproex 500 mg tablet,extended 500 mg PO BID 10/18/23 10/18/23 History release 24 hr fluconazole 200 mg tablet 200 mg PO X1 #2 tabs 10/18/23 Unknown Rx (Diflucan) pantoprazole 40 mg tablet,delayed 40 mg PO DAILY 10/18/23 10/18/23 History release potassium chloride 20 mEq 20 meq PO DAILY 10/18/23 10/18/23 History tablet,extended release(part/cryst) sennosides 8.6 mg tablet (senna) 8.6 mg PO BID 10/18/23 10/18/23 History sertraline 50 mg tablet 50 mg PO DAILY 10/18/23 10/18/23 History amoxicillin 875 mg-potassium 1 tab PO BID #26 tabs 12/13/23 Unknown Rx clavulanate 125 mg tablet sulfamethoxazole 800 1 tab PO BID #26 tabs 12/13/23 Unknown Rx mg-trimethoprim 160 mg tablet (Bactrim DS) ondansetron 4 mg disintegrating 4 mg PO Q6H PRN nausea and 04/08/24 Unknown Rx tablet vomiting #15 tabs Allergy/AdvReac Type Severity Reaction Status Date / Time erythromycin base Allergy TONGUE Verified 04/08/24 14:38 PEELS Family History Sister Melanoma Father Prostate CA Surgical History 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 Social History household members: none housing: apartment Smoking Status: Former smoker alcohol intake: former year quit: 2020 substance use type: marijuana ROS ROS ED ROS Narrative Constitutional: No fever, no chills. Feels dehydrated. HEENT: No sore throat. No neck pain. No loss of vision. No rhinorrhea. Cardiovascular: No chest pain. No palpitations. No pedal edema. Respiratory: No cough, no shortness of breath. Abdominal: No abdominal pain. Multiple episodes of nausea, vomiting, and diarrhea. Vomiting improved over the last 2 days. Genitourinary: No dysuria. No hematuria. Musculoskeletal: No myalgias. No arthralgias. Neurologic: No headaches. No dizziness. No lightheadedness. Skin: No rash. No change in color. EXAM Physical Exam Narrative Exam Narrative: Afebrile. Vital signs noted. Mildly cachectic. Cardiovascular examination reveals a tachycardia that is regular. Lungs are clear to auscultation bilaterally. Abdomen is soft and nontender wit hout guarding or rebound. Positive bowel sounds. Neurological examination is nonfocal and nonlateralizing. Const Vital Signs: 04/08/24 14:35 04/08/24 16:35 Temperature 96.8 F L Temperature Source Temporal Pulse Rate 125 H 105 H Respiratory Rate 16 18 Blood Pressure 118/84 H 128/72 H Blood Pressure Mean 95 90 Pulse Ox 100 98 Oxygen Delivery Method Room Air Room Air MDM MDM MDM Narrative Medical decision making narrative: Differential diagnosis includes but not limited to gastroenteritis versus partial small bowel obstruction versus pancreatitis. I have low suspicion for the latter 2 diagnoses based on her history and physical. G (more content not included)... Normal [facility] Eosinophil percentageOrdered By: Ankit Marsh on 04-08-2024 Eosinophils/100 WBC (Bld) 0.1 % 0-5 [facility] Epithelial cells.squamous LM Ql (Urine sed)Ordered By: Ankit Marsh on 04-08-2024 Epithelial cells.squamous LM.HPF (Urine sed) [#/Area] 0 /[HPF] 5-10 [facility] Erythrocyte distribution wid th (RBC) [Ratio]Ordered By: Ankit Marsh on 04-08-2024 Erythrocyte distribution width (RBC) [Entitic vol] 56.0 fL High 35.1-43.9 [facility] Erythrocyte distribution wid th ratioOrdered By: Ankit Marsh on 04-08-2024 Erythrocyte distribution width (RBC) [Ratio] 17.8 % High 11.6-14.6 [facility] Estimated glomerular filtrat ion rate (GFR) AmericanOrdered By: Ankit Marsh on 04-08-2024 Estimated GFR (MDRD) Amer 116 mL/min >60 [facility] Comment on above: GFR Calc Estimation of creatinine lupe aranceOrdered By: Ankit Marsh on 04-08-2024 Estimated Creatinine Clearance Calc 46.69 ml/min [facility] Glomerular filtration rate ( GFR) estimationOrdered By: Ankit Marsh on 04-08-2024 Estimated GFR (MDRD) Non-Af Amer 96 mL/min >60 [facility] Comment on above: Non- GFR Calc Glucose Ql (U)Ordered By: Raymond Marsh on 04-08-2024 Urine Glucose (UA) Normal mg/dl Normal [facility] Glucose measurementOrdered B y: Ankit Marsh on 04-08-2024 Glucose [Mass/Vol] 113 mg/dL High 74-106 [facility] Comment on above: Fasting Glucose resu lt from 100 to 125 mg/dL suggests IMPAIRED HOMEOSTASIS per A.D.A. criteria. Hematocrit Auto (Bld) [Volum e fraction]Ordered By: Ankit Marsh on 04-08-2024 Hematocrit (Bld) [Volume fraction] 37.2 % 37-47 [facility] Hemoglobin measurementOrdere d By: Ankit Marsh on 04-08-2024 Hemoglobin (Bld) [Mass/Vol] 13.3 g/dL 12.0-15.0 [facility] Immature granulocytes/100 WB C Auto (Bld)Ordered By: Ankit Marsh on 04-08-2024 Immature granulocytes/100 WBC (Bld) 0.400 % 0.0-0.9 [facility] Comment on above: IG% - Immature Granu locytes (promyelocytes, myelocytes and metamyelocytes) > 1% indicates that a LEFT SHIFT is Present. Ketones Test strip Ql (U)Ord ered By: Ankit Marsh on 04-08-2024 Ketones Ql (U) 15 mg/dl High Negative [facility] - Chemistry and C hemistry - challengeOrdered By: Ankit Marsh on 04-08-2024 AST [Catalytic activity/Vol] 18 U/L 15-37 [facility] Lipaseon 04-08-2024 Lipase [Catalytic activity/Vol] 24 U/L Normal 13-75 [facility] Comment on above: Result Comment: Efrem caldwell note: LIPASE revised reference range effective 22. New Lipase methodology. Expected to produce lower values than the previous assay method. NEW Reference Range: 13 - 75 U/L Performed By: #### L 500.2500, L100.0100 #### [facility] [address] [place], [address] Lipase measurementOrdered By : Ankit Marsh on 04-08-2024 Lipase [Catalytic activity/Vol] 24 U/L 13- [facility] Comment on above: Please note:LIPASE r evised reference range effective 22. New Lipase methodology. Expected to produce lower values than the previous assay method. NEW Reference Range: 13 - 75 U/L Lymphocytes Auto (Unsp spec) [#/Vol]Ordered By: Ankit Marsh on 04-08-2024 Lymphocytes (Bld) [#/Vol] 1.99 10*3/uL 0.83-4.51 [facility] Lymphocytes/100 WBC Auto (Un sp spec)Ordered By: Ankit Marsh on 04-08-2024 Lymphocytes/100 WBC (Bld) 25.0 % 19-41 [facility] MCV (mean corpuscular volume ) determinationOrdered By: Ankit Marsh on 04-08-2024 MCV (RBC) [Entitic vol] 87.5 fL 81-99 [facility] Magnesiumon 04-08-2024 Magnesium [Mass/Vol] 1.9 mg/dL Normal 1.6-2.6 [facility] Comment on above: Performed By: #### L 501.5200 #### [facility] [address] [place] [address], [address] Magnesium measurementOrdered By: Ankit Marsh on 04-08-2024 Magnesium [Mass/Vol] 1.9 mg/dL 1.6-2.6 [facility] Mean corpuscular hemoglobin (MCH) determinationOrdered By: Ankit Marsh on 04-08-2024 MCH (RBC) [Entitic mass] 31.3 pg 27.0-32.0 [facility] Mean corpuscular hemoglobin concentration (MCHC) determinationOrdered By: Ankit Marsh on 04-08-2024 MCHC (RBC) [Mass/Vol] 35.8 g/dL 32-[address] [facility] Mean platelet volume determi nationOrdered By: Ankit Marsh on 04-08-2024 Platelet mean volume (Bld) [Entitic vol] 8.8 fL 6.2-12.0 [facility] Microscopic analysis of urin e for red blood cells (RBC)Ordered By: Ankit Marsh on 04-08-2024 Urine RBC 0-5 SEEN /hpf 0-5 [facility] Monocyte percentageOrdered B y: Ankit Marsh on 04-08-2024 Monocytes/100 WBC (Bld) 5.5 % 0-10 [facility] Mucus LM Ql (Urine sed)Order ed By: Ankit Marsh on 04-08-2024 Mucus Ql (Urine sed) 3+ /hpf [facility] Neutrophil percentageOrdered By: Ankit Marsh on 04-08-2024 Neutrophils/100 WBC (Bld) 68.4 % 47-70 [facility] Nitrite Test strip Ql (U)Ord ered By: Ankit Marsh on 04-08-2024 Nitrite Ql (U) Negative Negative [facility] Nucleated red blood cell per centageOrdered By: Ankit Marsh on 04-08-2024 Nucleated RBC/100 WBC (Bld) [Ratio] 0 % 0-5 [facility] Platelet countOrdered By: Raymond Marsh on 04-08-2024 Platelets (Bld) [#/Vol] 275 10*3/uL 150-450 [facility] Potassium measurementOrdered By: Ankit Marsh on 04-08-2024 Potassium [Moles/Vol] 2.7 mmol/L Low 3.5-5.[address] [facility] Comment on above: Critical Result(s) C alled at: 16:35:33 04/08/2024 by: LISBETH KENNEDY. Results read back by Shailesh Klein Protein Test strip Ql (U)Ord ered By: Ankit Marsh on 04-08-2024 Protein Ql (U) 30 mg/dl High Negative [facility] RBC Auto (Bld) [#/Vol]Ordere d By: Ankit Marsh on 04-08-2024 RBC (Bld) [#/Vol] 4.25 10*6/uL 4.2-5.4 [facility] Serum anion gap measurementO rdered By: Ankit Marsh on 04-08-2024 Anion gap [Moles/Vol] 11 mmol/L 5-[address] [facility] Serum globulin measurementOr dered By: Ankit Marsh on 04-08-2024 Globulin (S) [Mass/Vol] 3.6 g/dL 2.2-4.2 [facility] Serum or plasma alanine ramirez otransferase (ALT) measurementOrdered By: Ankit Marsh on 04-08-2024 ALT [Catalytic activity/Vol] 11 U/L Low 13-56 [facility] Serum or plasma albumin renetta urement (mass/volume)Ordered By: Ankit Marsh on 04-08-2024 Albumin [Mass/Vol] 3.8 g/dL 3.2-5.0 [facility] Serum or plasma alkaline marquez sphatase measurementOrdered By: Ankit Marsh on 04-08-2024 ALP [Catalytic activity/Vol] 45 U/L 45-117 [facility] Serum or plasma calcium renetta urement (mass/volume)Ordered By: Ankit aMrsh on 04-08-2024 Calcium [Mass/Vol] 9.5 mg/dL 8.5-10.1 [facility] Serum or plasma creatinine m easurement (mass/volume)Ordered By: Ankit Marsh on 04-08-2024 Creatinine [Mass/Vol] 0.66 mg/dL 0.55-1.[address] [facility] Comment on above: The validity of the calculated GFR & GFRAA in patients over 70 years has not been determined. Clinical correlation is essential. Serum or plasma urea nitroge n measurement (mass/volume)Ordered By: Ankit Marsh on 04-08-2024 Urea nitrogen [Mass/Vol] 14 mg/dL 7-18 [facility] Sodium levelOrdered By: Ankit Marsh on 04-08-2024 Sodium [Moles/Vol] 136 mmol/L 136-145 [facility] Total proteinOrdered By: Clinton Marsh on 04-08-2024 Protein [Mass/Vol] 7.4 g/dL 6.4-8.2 [facility] Transitional cells LM Ql (Ur ine sed)Ordered By: Ankit Marsh on 04-08-2024 Urine Transitional Epithelial Cells 0-5 SEEN /hpf 0-5 [facility] Urinalysis, Completeon 04-08 AMORPHOUS 1+ Normal [facility] Comment on above: Order Comment: COLOR OF URINE MAY AFFECT DIPSTICK RESULTS. CLEAN CATCH Performed By: #### L 400.0001 #### [facility] [address] [place], [address] BACTERIA 2+ /hpf Normal None Seen [facility] Comment on above: Order Comment: COLOR OF URINE MAY AFFECT DIPSTICK RESULTS. CLEAN CATCH Performed By: #### L 400.0001 #### [facility] [address] [place], [address] EPI,SQUAMOUS 0-5 SEEN Normal 5-10 [facility] Comment on above: Order Comment: COLOR OF URINE MAY AFFECT DIPSTICK RESULTS. CLEAN CATCH Performed By: #### L 400.0001 #### [facility] [address] [place], [address] EPI,TRANSITION 0-5 SEEN Normal 0-5 [facility] Comment on above: Order Comment: COLOR OF URINE MAY AFFECT DIPSTICK RESULTS. CLEAN CATCH Performed By: #### L 400.0001 #### [facility] [address] [place], [address] Mucus Ql (Urine sed) 3+ /hpf Normal [facility] Comment on above: Order Comment: COLOR OF URINE MAY AFFECT DIPSTICK RESULTS. CLEAN CATCH Performed By: #### L 400.0001 #### [facility] [address] [place], [address] RBC 0-5 SEEN Normal 0-5 [facility] Comment on above: Order Comment: COLOR OF URINE MAY AFFECT DIPSTICK RESULTS. CLEAN CATCH Performed By: #### L 400.0001 #### [facility] [address] [place], [address] WBC 0-5 SEEN Normal 0-5 [facility] Comment on above: Order Comment: COLOR OF URINE MAY AFFECT DIPSTICK RESULTS. CLEAN CATCH Performed By: #### L 400.0001 #### [facility] [address] [place], [address] Urine blood detectionOrdered By: Ankit Marsh on 04-08-2024 Urine Occult Blood 10 /ul High Negative [facility] Urine clarityOrdered By: Clinton Marsh on 01-13-2025 Clarity (U) Clear Clear [facility] Urine color determinationOrd ered By: Ankit Marsh on 04-08-2024 Color (U) Ellyn Yellow [facility] Urine leukocyte esterase det ection by dipstickOrdered By: Ankit Marsh on 04-08-2024 Leukocyte esterase Test strip Ql (U) 25 /ul High Negative [facility] Urine pHOrdered By: Ankit smart on 04-08-2024 pH (U) 6.0 [pH] 5.0 - 8.0 [facility] Urine sediment bacteria coun t by microscopy (number/high power field)Ordered By: Ankit Marsh on 04-08-2024 Bacteria LM.HPF (Urine sed) [#/Area] 2 /[HPF] None Seen [facility] Urine specific gravity measu rementOrdered By: Ankit Marsh on 04-08-2024 Specific gravity (U) [Rel density] 1.015 1.002-1.03 0 [facility] Urobilinogen Ql (U)Ordered B y: Ankit Marsh on 04-08-2024 Urine Urobilinogen Normal mg/dl Normal [facility] White blood cell (WBC) count Ordered By: Ankit Marsh on 04-08-2024 WBC (Bld) [#/Vol] 8.0 10*3/uL 4.4-11.0 [facility] White blood cell countOrdere d By: Ankit Marsh on 04-08-2024 Urine WBC 0-5 SEEN /hpf 0-5 [facility] CNPNon 03-25-2024 CNPN Normal [facility] CBC W Auto Differential pane l (Bld)on 03-22-2024 Basophils (Bld) [#/Vol] 0.05 10*3/uL Normal <0.11 [facility] Comment on above: Order Comment: Speci men Type: BLOOD SPECIMENOrdering Facility: [facility] Address: [address] [place] [address] Performed By: #### 5 7021-8 ####[facility] [id number] [place] [address] [place] Basophils/100 WBC (Bld) 1.0 % Normal [facility] Comment on above: Order Comment: Speci men Type: BLOOD SPECIMENOrdering Facility: [facility] Address: [address] [place] [address] Performed By: #### 5 7021-8 ####[facility] [id number] [place] [address] [place] Differential cell count method Nom (Bld) Auto Normal [facility] Comment on above: Order Comment: Speci men Type: BLOOD SPECIMENOrdering Facility: [facility] Address: [address] [place] [address] Performed By: #### 5 7021-8 ####[facility] [id number] [place] [address] [place] Eosinophils (Bld) [#/Vol] 0.10 10*3/uL Normal <0.46 [facility] Comment on above: Order Comment: Speci men Type: BLOOD SPECIMENOrdering Facility: [facility] Address: [address] [place] [address] Performed By: #### 5 7021-8 ####[facility] [id number] [place] [address] [place] Eosinophils/100 WBC (Bld) 2.0 % Normal [facility] Comment on above: Order Comment: Speci men Type: BLOOD SPECIMENOrdering Facility: [facility] Address: [address] [place] [address] Performed By: #### 5 7021-8 ####[facility] [id number] [place] [address] [place] Erythrocyte distribution width (RBC) [Ratio] 17.1 % High 11.5-15.0 [facility] Comment on above: Order Comment: Speci men Type: BLOOD SPECIMENOrdering Facility: [facility] Address: [address] [place] [address] Performed By: #### 5 7021-8 ####[facility] [id number] [place] [address] [place] Hematocrit (Bld) [Volume fraction] 35.1 % Low 36.0-46.0 [facility] Comment on above: Order Comment: Speci men Type: BLOOD SPECIMENOrdering Facility: [facility] Address: [address] [place] [address] Performed By: #### 5 7021-8 ####[facility] [id number] [place] [address] [place] Hemoglobin (Bld) [Mass/Vol] 11.6 g/dL Normal 11.5-15.5 [facility] Comment on above: Order Comment: Speci men Type: BLOOD SPECIMENOrdering Facility: [facility] Address: [address] [place] [address] Performed By: #### 5 7021-8 ####[facility]ENTERA [id number] [place] [address] [place] Immature granulocytes (Bld) [#/Vol] 10*3/uL Normal <0.10 [facility] Comment on above: Order Comment: Speci men Type: BLOOD SPECIMENOrdering Facility: [facility] Address: [address] [place] [address] Performed By: #### 5 7021-8 ####[facility] CENTERLIA [id number] [place] [address] [place] Immature granulocytes/100 WBC (Bld) 0.0 % Normal [facility] Comment on above: Order Comment: Speci men Type: BLOOD SPECIMENOrdering Facility: [facility] Address: [address] [place] [address] Performed By: #### 5 7021-8 ####[facility]ITALNCLIA [id number] [place] [address] [place] Lymphocytes (Bld) [#/Vol] 1.80 10*3/uL Normal 1.00-4.00 [facility] Comment on above: Order Comment: Speci men Type: BLOOD SPECIMENOrdering Facility: [facility] Address: [address] [place] [address] Performed By: #### 5 7021-8 ####[facility] HOSPITALNCA [id number] [place] [address] [place] Lymphocytes/100 WBC (Bld) 35.4 % Normal [facility] Comment on above: Order Comment: Speci men Type: BLOOD SPECIMENOrdering Facility: [facility] Address: [address] [place] [address] Performed By: #### 5 7021-8 ####[facility] HOSPITALNCLI [id number] [place] [address] [place] MCH (RBC) [Entitic mass] 30.2 pg Normal 26.0-34.0 [facility] Comment on above: Order Comment: Speci men Type: BLOOD SPECIMENOrdering Facility: [facility] Address: [address] [place] [address] Performed By: #### 5 7021-8 ####[facility] HOSPITALNCLI [id number] [place] [address] [place] MCHC (RBC) [Mass/Vol] 33.0 g/dL Normal 30.5-36.0 [facility] Comment on above: Order Comment: Speci men Type: BLOOD SPECIMENOrdering Facility: [facility] Address: [address] [place] [address] Performed By: #### 5 7021-8 ####[facility] HOSPITALNCLI [id number] [place] [address] [place] MCV (RBC) [Entitic vol] 91.4 fL Normal 80.0-100.0 [facility] Comment on above: Order Comment: Speci men Type: BLOOD SPECIMENOrdering Facility: [facility] Address: [address] [place] [address] Performed By: #### 5 7021-8 ####[facility] BISHNUCRUZITO [id number] [place] [address] [place] Monocytes (Bld) [#/Vol] 0.41 10*3/uL Normal <0.87 [facility] Comment on above: Order Comment: Speci men Type: BLOOD SPECIMENOrdering Facility: [facility] Address: [address] [place] [address] Performed By: #### 5 7021-8 ####[facility]A [id number] [place] [address] [place] Monocytes/100 WBC (Bld) 8.1 % Normal [facility] Comment on above: Order Comment: Speci men Type: BLOOD SPECIMENOrdering Facility: [facility] Address: [address] [place] [address] Performed By: #### 5 7021-8 ####[facility]A [id number] [place] [address] [place] Neutrophils (Bld) [#/Vol] 2.73 10*3/uL Normal 1.45-7.50 [facility] Comment on above: Order Comment: Speci men Type: BLOOD SPECIMENOrdering Facility: [facility] Address: [address] [place] [address] Performed By: #### 5 7021-8 ####[facility]ITALNCLIA [id number] [place] [address] [place] Neutrophils/100 WBC (Bld) 53.5 % Normal [facility] Comment on above: Order Comment: Speci men Type: BLOOD SPECIMENOrdering Facility: [facility] Address: [address] [place] [address] Performed By: #### 5 7021-8 ####[facility] BISHNUCOLELIA [id number] [place] [address] [place] Nucleated RBC (Bld) [#/Vol] 10*3/uL Normal <0.01 [facility] Comment on above: Order Comment: Speci men Type: BLOOD SPECIMENOrdering Facility: [facility] Address: [address] [place] [address] Performed By: #### 5 7021-8 ####[facility] HOSPITALKALIELIA [id number] [place] [address] [place] Nucleated RBC/100 WBC (Bld) [Ratio] 0.0 /100 WBC Normal [facility] Comment on above: Order Comment: Speci men Type: BLOOD SPECIMENOrdering Facility: [facility] Address: [address] [place] [address] Performed By: #### 5 7021-8 ####[facility]ENTERA [id number] [place] [address] [place] Platelet mean volume (Bld) [Entitic vol] 8.2 fL Low 9.0-12.7 [facility] Comment on above: Order Comment: Speci men Type: BLOOD SPECIMENOrdering Facility: [facility] Address: [address] [place] [address] Performed By: #### 5 7021-8 ####[facility] CENTERLIA [id number] [place] [address] [place] Platelets (Bld) [#/Vol] 208 10*3/uL Normal 150-400 [facility] Comment on above: Order Comment: Speci men Type: BLOOD SPECIMENOrdering Facility: [facility] Address: [address] [place] [address] Performed By: #### 5 7021-8 ####[facility] HOS[facility]ITALNCLIA [id number] [place] [address] [place] RBC (Bld) [#/Vol] 3.84 10*6/uL Low 3.90-5.20 [facility] Comment on above: Order Comment: Speci men Type: BLOOD SPECIMENOrdering Facility: [facility] Address: [address] [place] [address] Performed By: #### 5 7021-8 ####[facility] GORDACucaNCCALDERONA [id number] [place] [address] [place] WBC (Bld) [#/Vol] 5.09 10*3/uL Normal 3.70-11.00 [facility] Comment on above: Order Comment: Speci men Type: BLOOD SPECIMENOrdering Facility: [facility] Address: [address] [place] [address] Performed By: #### 5 7021-8 ####[facility] HOSPITALNCKELSIE [id number] [place] [address] [place] Comprehensive metabolic 2000 panelon 03-22-2024 Albumin [Mass/Vol] 4.3 g/dL Normal 3.9-4.9 [facility] Comment on above: Order Comment: Speci men Type: BLOOD SPECIMENOrdering Facility: [facility] Address: [address] [place] [address] Performed By: #### 2 4323-8 ####[facility] HOSPITALNCCALDERONA [id number] [place] [address] [place] ALP [Catalytic activity/Vol] 55 U/L Normal 34-123 [facility] Comment on above: Order Comment: Speci men Type: BLOOD SPECIMENOrdering Facility: [facility] Address: [address] [place] [address] Performed By: #### 2 4323-8 ####[facility] GORDAWNCLIA [id number] [place] [address] [place] ALT [Catalytic activity/Vol] 7 U/L Normal 7-38 [facility] Comment on above: Order Comment: Speci men Type: BLOOD SPECIMENOrdering Facility: [facility] Address: [address] [place] [address] Performed By: #### 2 4323-8 ####[facility] MILLTOWNCLIA [id number] [place] [address] [place] Anion gap [Moles/Vol] 12 mmol/L Normal 8-15 [facility] Comment on above: Order Comment: Speci men Type: BLOOD SPECIMENOrdering Facility: [facility] Address: [address] [place] [address] Performed By: #### 2 4323-8 ####[facility] MILLTOWNCLIA [id number] [place] [address] [place] AST [Catalytic activity/Vol] 16 U/L Normal 13-35 [facility] Comment on above: Order Comment: Speci men Type: BLOOD SPECIMENOrdering Facility: [facility] Address: [address] [place] [address] Performed By: #### 2 4323-8 ####[facility] MILLTOWNCLIA [id number] [place] [address] [place] Bilirubin [Mass/Vol] 0.3 mg/dL Normal 0.2-1.3 [facility] Comment on above: Order Comment: Speci men Type: BLOOD SPECIMENOrdering Facility: [facility] Address: [address] [place] [address] Performed By: #### 2 4323-8 ####[facility] MILLTOWNCLIA [id number] [place] [address] [place] Calcium [Mass/Vol] 9.3 mg/dL Normal 8.5-10.2 [facility] Comment on above: Order Comment: Speci men Type: BLOOD SPECIMENOrdering Facility: [facility] Address: [address] [place] [address] Performed By: #### 2 4323-8 ####[facility] MILLTOWNCLIA [id number] [place] [address] [place] Chloride [Moles/Vol] 101 mmol/L Normal 98-107 [facility] Comment on above: Order Comment: Speci men Type: BLOOD SPECIMENOrdering Facility: [facility] Address: [address] [place] [address] Performed By: #### 2 4323-8 ####[facility]PITALNCLIA [id number] [place] [address] [place] CO2 [Moles/Vol] 26 mmol/L Normal 22-30 [facility] Comment on above: Order Comment: Speci men Type: BLOOD SPECIMENOrdering Facility: [facility] Address: [address] [place] [address] Performed By: #### 2 4323-8 ####[facility] CENTERLIA [id number] [place] [address] [place] Creatinine [Mass/Vol] 0.73 mg/dL Normal 0.58-0.96 [facility] Comment on above: Order Comment: Speci men Type: BLOOD SPECIMENOrdering Facility: [facility] Address: [address] [place] [address] Performed By: #### 2 4323-8 ####[facility]ENTERA [id number] [place] [address] [place] [facility] Creatinine and Glomerular filtration rate.predicted panel (S/P/Bld) 91 mL/min/1.73m??? Normal >=60 [facility] Comment on above: Order Comment: Speci men Type: BLOOD SPECIMENOrdering Facility: [facility] Address: [address] [place] [address] Result Comment: Sana mated Glomerular Filtration Rate (eGFR) is calculated using the 2020 CKD-EPI creatinine equation. This equation utilizes serum creatinine, sex, and age as parameters. The creatinine assay has traceable calibration to isotope dilution-mass spectrometry. Refer to KDIGO guidelines for clinical interpretation. In patients with unstable renal function, e.g. those with acute kidney injury, the eGFR may not accurately reflect actual GFR. Performed By: #### 2 4323-8 ####[facility] GORDAWNCLIA [id number] [place] [address] [place] Glucose [Mass/Vol] 86 mg/dL Normal 74-99 [facility] Comment on above: Order Comment: [place] men Type: BLOOD SPECIMENOrdering Facility: [facility] Address: [address] [place] [address] Result Comment: The [place] [employer] (ADA) provides guidance for cutoff values for fasting glucose and random glucose. The ADA defines fasting as no caloric intake for at least 8 hours. Fasting plasma glucose results between 100 to 125 mg/dL indicate increased risk for diabetes (prediabetes).Fasting plasma glucose results greater than or equal to 126 mg/dL meet the criteria for diagnosis of diabetes. In the absence of unequivocal hyperglycemia, results should be confirmed by repeat testing. In a patient with classic symptoms of hyperglycemia or hyperglycemic crisis, random plasma glucose results greater than or equal to 200 mg/dL meet the criteria for diagnosis of diabetes.Reference: Standards of Medical Care in Diabetes 2016, [place] [employer]. Diabetes Care. 2016.39(Suppl 1). Performed By: #### 2 4323-8 ####[facility] GORDAWSDLIA [id number] [place] [address] [place] Potassium [Moles/Vol] 3.4 mmol/L Low 3.7-5.1 [facility] Comment on above: Order Comment: [place] men Type: BLOOD SPECIMENOrdering Facility: [facility] Address: [address] [place] [address] Performed By: #### 2 4323-8 ####[facility] GORDAWNCLIA [id number] [place] [id number] [place] Protein [Mass/Vol] 6.9 g/dL Normal 6.3-8.0 [facility] Comment on above: Order Comment: Speci men Type: BLOOD SPECIMENOrdering Facility: [facility] Address: [address] [place] [address] Performed By: #### 2 4323-8 ####[facility] [id number] [place] [address] [place] Sodium [Moles/Vol] 139 mmol/L Normal 136-144 [facility] Comment on above: Order Comment: Speci men Type: BLOOD SPECIMENOrdering Facility: [facility] Address: [address] [place] [address] Performed By: #### 2 4323-8 ####[facility] [id number] [place] [address] [place] Urea nitrogen [Mass/Vol] 12 mg/dL Normal 7-21 [facility] Comment on above: Order Comment: Speci men Type: BLOOD SPECIMENOrdering Facility: [facility] Address: [address] [place] [address] Performed By: #### 2 4323-8 ####[facility] [id number] [place] [address] [place] CNPNon 03-19-2024 CNPN Normal [facility] CT ABD/PEL W IVCONon 024 CT ABD/PEL W IVCON Normal [facility] CNOVon 03-07-2024 CNOV Normal [facility] CNPNon 02-29-2024 CNPN Normal [facility] CNPNon 02-21-2024 CNPN Normal [facility] CNPNon 02-16-2024 CNPN Normal [facility] CBC W Auto Differential pane l (Bld)on 02-15-2024 Basophils (Bld) [#/Vol] 0.09 10*3/uL Normal <0.11 [facility] Comment on above: Order Comment: Speci men Type: BLOOD SPECIMENOrdering Facility: [facility] Address: [address] [place] [address] Performed By: #### 5 7021-8 ####[facility] BISHNUWNCLIA [id number] [place] [address] [place] Basophils/100 WBC (Bld) 1.1 % Normal [facility] Comment on above: Order Comment: Speci men Type: BLOOD SPECIMENOrdering Facility: [facility] Address: [address] [place] [address] Performed By: #### 5 7021-8 ####[facility] CENTERLIA [id number] [place] [address] [place] Differential cell count method Nom (Bld) Auto Normal [facility] Comment on above: Order Comment: Speci men Type: BLOOD SPECIMENOrdering Facility: [facility] Address: [address] [place] [address] Performed By: #### 5 7021-8 ####[facility] CENTERLIA [id number] [place] [address] [place] Eosinophils (Bld) [#/Vol] 0.29 10*3/uL Normal <0.46 [facility] Comment on above: Order Comment: Speci men Type: BLOOD SPECIMENOrdering Facility: [facility] Address: [address] [place] [address] Performed By: #### 5 7021-8 ####[facility] CENTERLIA [id number] [place] [address] [place] Eosinophils/100 WBC (Bld) 3.6 % Normal [facility] Comment on above: Order Comment: Speci men Type: BLOOD SPECIMENOrdering Facility: [facility] Address: [address] [place] [address] Performed By: #### 5 7021-8 ####[facility]ITALNCLIA [id number] [place] [address] [place] Erythrocyte distribution width (RBC) [Ratio] 15.0 % Normal 11.5-15.0 [facility] Comment on above: Order Comment: Speci men Type: BLOOD SPECIMENOrdering Facility: [facility] Address: [address] [place] [address] Performed By: #### 5 7021-8 ####[facility] [id number] [place] [address] [place] Hematocrit (Bld) [Volume fraction] 37.6 % Normal 36.0-46.0 [facility] Comment on above: Order Comment: Speci men Type: BLOOD SPECIMENOrdering Facility: [facility] Address: [address] [place] [address] Performed By: #### 5 7021-8 ####[facility]ITALNCHUNTS[facility] [id number] [place] [address] [place] Hemoglobin (Bld) [Mass/Vol] 11.8 g/dL Normal 11.5-15.5 [facility] Comment on above: Order Comment: Speci men Type: BLOOD SPECIMENOrdering Facility: [facility] Address: [address] [place] [address] Performed By: #### 5 7021-8 ####[facility]A [id number] [place] [address] [place] Immature granulocytes (Bld) [#/Vol] 10*3/uL Normal <0.10 [facility] Comment on above: Order Comment: Speci men Type: BLOOD SPECIMENOrdering Facility: [facility] Address: [address] [place] [address] Performed By: #### 5 7021-8 ####[facility]ITALNCLI [id number] [place] [address] [place] Immature granulocytes/100 WBC (Bld) 0.2 % Normal [facility] Comment on above: Order Comment: Speci men Type: BLOOD SPECIMENOrdering Facility: [facility] Address: [address] [place] [address] Performed By: #### 5 7021-8 ####[facility] BISHNURENOGUMEA [id number] [place] [address] [place] Lymphocytes (Bld) [#/Vol] 3.39 10*3/uL Normal 1.00-4.00 [facility] Comment on above: Order Comment: Speci men Type: BLOOD SPECIMENOrdering Facility: [facility] Address: [address] [place] [address] Performed By: #### 5 7021-8 ####[facility] HOSPITALKALIEA [id number] [place] [address] [place] Lymphocytes/100 WBC (Bld) 42.1 % Normal [facility] Comment on above: Order Comment: Speci men Type: BLOOD SPECIMENOrdering Facility: [facility] Address: [address] [place] [address] Performed By: #### 5 7021-8 ####[facility] HOSPITALGUMEA [id number] [place] [address] [place] MCH (RBC) [Entitic mass] 28.3 pg Normal 26.0-34.0 [facility] Comment on above: Order Comment: Speci men Type: BLOOD SPECIMENOrdering Facility: [facility] Address: [address] [place] [address] Performed By: #### 5 7021-8 ####[facility]ITALNCLIA [id number] [place] [address] [place] MCHC (RBC) [Mass/Vol] 31.4 g/dL Normal 30.5-36.0 [facility] Comment on above: Order Comment: Speci men Type: BLOOD SPECIMENOrdering Facility: [facility] Address: [address] [place] [address] Performed By: #### 5 7021-8 ####[facility] BISHNUWNCLIA [id number] [place] [address] [place] MCV (RBC) [Entitic vol] 90.2 fL Normal 80.0-100.0 [facility] Comment on above: Order Comment: Speci men Type: BLOOD SPECIMENOrdering Facility: [facility] Address: [address] [place] [address] Performed By: #### 5 7021-8 ####[facility] CENTERLIA [id number] [place] [address] [place] Monocytes (Bld) [#/Vol] 0.58 10*3/uL Normal <0.87 [facility] Comment on above: Order Comment: Speci men Type: BLOOD SPECIMENOrdering Facility: [facility] Address: [address] [place] [address] Performed By: #### 5 7021-8 ####[facility]ENTERA [id number] [place] [address] [place] Monocytes/100 WBC (Bld) 7.2 % Normal [facility] Comment on above: Order Comment: Speci men Type: BLOOD SPECIMENOrdering Facility: [facility] Address: [address] [place] [address] Performed By: #### 5 7021-8 ####[facility]ENTERA [id number] [place] [address] [place] Neutrophils (Bld) [#/Vol] 3.69 10*3/uL Normal 1.45-7.50 [facility] Comment on above: Order Comment: Speci men Type: BLOOD SPECIMENOrdering Facility: [facility] Address: [address] [place] [address] Performed By: #### 5 7021-8 ####[facility]ITALNCLIA [id number] [place] [address] [place] Neutrophils/100 WBC (Bld) 45.8 % Normal [facility] Comment on above: Order Comment: Speci men Type: BLOOD SPECIMENOrdering Facility: [facility] Address: [address] [place] [address] Performed By: #### 5 7021-8 ####[facility]ITALNCHUNTS[facility] [id number] [place] [address] [place] Nucleated RBC (Bld) [#/Vol] 10*3/uL Normal <0.01 [facility] Comment on above: Order Comment: Speci men Type: BLOOD SPECIMENOrdering Facility: [facility] Address: [address] [place] [address] Performed By: #### 5 7021-8 ####[facility]ITALNCHUNTS[facility] [id number] [place] [address] [place] Nucleated RBC/100 WBC (Bld) [Ratio] 0.0 /100 WBC Normal [facility] Comment on above: Order Comment: Speci men Type: BLOOD SPECIMENOrdering Facility: [facility] Address: [address] [place] [address] Performed By: #### 5 7021-8 ####[facility]ITALNCHUNTS[facility] [id number] [place] [address] [place] Platelet mean volume (Bld) [Entitic vol] 9.4 fL Normal 9.0-12.7 [facility] Comment on above: Order Comment: Speci men Type: BLOOD SPECIMENOrdering Facility: [facility] Address: [address] [place] [address] Performed By: #### 5 7021-8 ####[facility] [id number] [place] [address] [place] Platelets (Bld) [#/Vol] 407 10*3/uL High 150-400 [facility] Comment on above: Order Comment: Speci men Type: BLOOD SPECIMENOrdering Facility: [facility] Address: [address] [place] [address] Performed By: #### 5 7021-8 ####[facility]ITALNCLIA [id number] [place] [address] [place] RBC (Bld) [#/Vol] 4.17 10*6/uL Normal 3.90-5.20 [facility] Comment on above: Order Comment: Speci men Type: BLOOD SPECIMENOrdering Facility: [facility] Address: [address] [place] [address] Performed By: #### 5 7021-8 ####[facility]ITALNCLIA [id number] [place] [address] [place] WBC (Bld) [#/Vol] 8.06 10*3/uL Normal 3.70-11.00 [facility] Comment on above: Order Comment: Speci men Type: BLOOD SPECIMENOrdering Facility: [facility] Address: [address] [place] [address] Performed By: #### 5 7021-8 ####[facility]ITALNCLIA [id number] [place] [address] [place] Comprehensive metabolic 2000 panelon 02-15-2024 Albumin [Mass/Vol] 4.4 g/dL Normal 3.9-4.9 [facility] Comment on above: Order Comment: Speci men Type: BLOOD SPECIMENOrdering Facility: [facility] Address: [address] [place], [place] [address] Performed By: #### 2 4323-8 ####[facility]ITALNCLIA [id number] [place] [address] [place] ALP [Catalytic activity/Vol] 98 U/L Normal 34-123 [facility] Comment on above: Order Comment: Speci men Type: BLOOD SPECIMENOrdering Facility: [facility] Address: [address] [place] [address] Performed By: #### 2 4323-8 ####[facility] MILLTOWNCLIA [id number] [place], [place] [address] [place] ALT [Catalytic activity/Vol] 10 U/L Normal 7-38 [facility] Comment on above: Order Comment: Speci men Type: BLOOD SPECIMENOrdering Facility: [facility] Address: [address] [place] [address] Performed By: #### 2 4323-8 ####[facility] GORDAWNCLIA [id number] [place] [address] [place] Anion gap [Moles/Vol] 14 mmol/L Normal 8-15 [facility] Comment on above: Order Comment: Speci men Type: BLOOD SPECIMENOrdering Facility: [facility] Address: [address] [place] [address] Performed By: #### 2 4323-8 ####[facility]ITAL[facility]CLIA [id number] [place] [address] [place] AST [Catalytic activity/Vol] 15 U/L Normal 13-35 [facility] Comment on above: Order Comment: Speci men Type: BLOOD SPECIMENOrdering Facility: [facility] Address: [address] [place] [address] Performed By: #### 2 4323-8 ####[facility] G[facility]DAWNCLIA [id number] [place] [address] [place] Bilirubin [Mass/Vol] 0.2 mg/dL Normal 0.2-1.3 [facility] Comment on above: Order Comment: Speci men Type: BLOOD SPECIMENOrdering Facility: [facility] Address: [address] [place], [place] [address] Performed By: #### 2 4323-8 ####[facility] G[facility]DAWNCLIA [id number] [place] [id number] [place] Calcium [Mass/Vol] 10.1 mg/dL Normal 8.5-10.2 [facility] Comment on above: Order Comment: Speci men Type: BLOOD SPECIMENOrdering Facility: [facility] Address: [address] [place] [address] Performed By: #### 2 4323-8 ####[facility] MILLWNCLIA [id number] [place] [address] [place] Chloride [Moles/Vol] 99 mmol/L Normal 98-107 [facility] Comment on above: Order Comment: Speci men Type: BLOOD SPECIMENOrdering Facility: [facility] Address: [address] [place] [address] Performed By: #### 2 4323-8 ####[facility] CENTERLIA [id number] [place] [address] [place] CO2 [Moles/Vol] 24 mmol/L Normal 22-30 [facility] Comment on above: Order Comment: Speci men Type: BLOOD SPECIMENOrdering Facility: [facility] Address: [address] [place] [address] Performed By: #### 2 4323-8 ####[facility] CENTERLIA [id number] [place] [address] [place] Creatinine [Mass/Vol] 0.57 mg/dL Low 0.58-0.96 [facility] Comment on above: Order Comment: Speci men Type: BLOOD SPECIMENOrdering Facility: [facility] Address: [address] [place] [address] Performed By: #### 2 4323-8 ####[facility] CENTERLIA [id number] [place] [address] [place] Creatinine and Glomerular filtration rate.predicted panel (S/P/Bld) 101 mL/min/1.73m??? Normal >=60 [facility] Comment on above: Order Comment: Umesh baugh Type: BLOOD SPECIMENOrdering Facility: [facility] Address: [address] [place] [address] Result Comment: Sana mated Glomerular Filtration Rate (eGFR) is calculated using the 2020 CKD-EPI creatinine equation. This equation utilizes serum creatinine, sex, and age as parameters. The creatinine assay has traceable calibration to isotope dilution-mass spectrometry. Refer to KDIGO guidelines for clinical interpretation. In patients with unstable renal function, e.g. those with acute kidney injury, the eGFR may not accurately reflect actual GFR. Performed By: #### 2 4323-8 ####[facility] [id number] [place] [address] [place] Glucose [Mass/Vol] 97 mg/dL Normal 74-99 [facility] Comment on above: Order Comment: Umesh baugh Type: BLOOD SPECIMENOrdering Facility: [facility] Address: [address] [place] [address] Result Comment: The [place] Diabetes Association (ADA) provides guidance for cutoff values for fasting glucose and random glucose. The ADA defines fasting as no caloric intake for at least 8 hours. Fasting plasma glucose results between 100 to 125 mg/dL indicate increased risk for diabetes (prediabetes).Fasting plasma glucose results greater than or equal to 126 mg/dL meet the criteria for diagnosis of diabetes. In the absence of unequivocal hyperglycemia, results should be confirmed by repeat testing. In a patient with classic symptoms of hyperglycemia or hyperglycemic crisis, random plasma glucose results greater than or equal to 200 mg/dL meet the criteria for diagnosis of diabetes.Reference: Standards of Medical Care in Diabetes 2016, [place] [employer]. Diabetes Care. 2016.39(Suppl 1). Performed By: #### 2 4323-8 ####[facility]ENTERA [id number] [place] [address] [place] Potassium [Moles/Vol] 4.0 mmol/L Normal 3.7-5.1 [facility] Comment on above: Order Comment: Umesh baugh Type: BLOOD SPECIMENOrdering Facility: [facility] Address: [address] [place] [id number] Performed By: #### 2 4323-8 ####[facility] MILLTOWNCLIA [id number] [place] [address] [place] Protein [Mass/Vol] 7.9 g/dL Normal 6.3-8.0 [facility] Comment on above: Order Comment: Speci men Type: BLOOD SPECIMENOrdering Facility: [facility] Address: [address] [place] [address] Performed By: #### 2 4323-8 ####[facility] MILLTOWNCLIA [id number] [place] [address] [place] Sodium [Moles/Vol] 137 mmol/L Normal 136-144 [facility] Comment on above: Order Comment: Speci men Type: BLOOD SPECIMENOrdering Facility: [facility] Address: [address] [place] [address] Performed By: #### 2 4323-8 ####[facility] MILLTOWNCLIA [id number] [place] [address] [place] Urea nitrogen [Mass/Vol] 16 mg/dL Normal 7-21 [facility] Comment on above: Order Comment: Speci men Type: BLOOD SPECIMENOrdering Facility: [facility] Address: [address] [place] [address] Performed By: #### 2 4323-8 ####[facility] MILLWNCLIA [id number] [place] [address] [place] CNPNon 02-13-2024 CNPN Normal [facility] CNPNon 02-12-2024 CNPN Normal [facility] CBC W/Diff, Automatedon 11- Absolute Lymph 2.00 X10 3/uL Normal 0.83-4.51 [facility] Comment on above: Performed By: #### L 500.4050, L501.9520, L501.5200, L100.0100, L503.6030, L503.0105, L506.1000 ####[facility] [address] [place], [address] Absolute Neut 3.7 X10 3/uL Normal 2.0-7.7 [facility] Comment on above: Performed By: #### L 500.4050, L501.9520, L501.5200, L100.0100, L503.6030, L503.0105, L506.1000 ####[facility] [address] [place], [address] Basophils/100 WBC (Bld) 0.9 % Normal 0-1 [facility] Comment on above: Performed By: #### L 500.4050, L501.9520, L501.5200, L100.0100, L503.6030, L503.0105, L506.1000 ####[facility] [address] [place], [address] Eosinophils/100 WBC (Bld) 3.7 % Normal 0-5 [facility] Comment on above: Performed By: #### L 500.4050, L501.9520, L501.5200, L100.0100, L503.6030, L503.0105, L506.1000 ####[facility] [address] [place], [address] Erythrocyte distribution width (RBC) [Ratio] 15.3 % High 11.6-14.6 [facility] Comment on above: Performed By: #### L 500.4050, L501.9520, L501.5200, L100.0100, L503.6030, L503.0105, L506.1000 ####[facility] [address] [place], [address] Hematocrit (Bld) [Volume fraction] 39.3 % Normal 37-47 [facility] Comment on above: Performed By: #### L 500.4050, L501.9520, L501.5200, L100.0100, L503.6030, L503.0105, L506.1000 ####[facility] [address] [place], [address] Hemoglobin (Bld) [Mass/Vol] 12.5 g/dL Normal 12.0-15.0 [facility] Comment on above: Performed By: #### L 500.4050, L501.9520, L501.5200, L100.0100, L503.6030, L503.0105, L506.1000 ####[facility] [address] [place], [address] IG% 0.500 Normal 0.0-0.9 [facility] Comment on above: Result Comment: IG% - Immature Granulocytes (promyelocytes, myelocytes and metamyelocytes) > 1% indicates that a LEFT SHIFT is Present. Performed By: #### L 500.4050, L501.9520, L501.5200, L100.0100, L503.6030, L503.0105, L506.1000 ####[facility] [address] [place], [address] Lymphocytes/100 WBC (Bld) 31.2 % Normal 19-41 [facility] Comment on above: Performed By: #### L 500.4050, L501.9520, L501.5200, L100.0100, L503.6030, L503.0105, L506.1000 ####[facility] [address] [place], [address] MCH (RBC) [Entitic mass] 28.5 pg Normal 27.0-32.0 [facility] Comment on above: Performed By: #### L 500.4050, L501.9520, L501.5200, L100.0100, L503.6030, L503.0105, L506.1000 ####[facility] [address] [place], [address] MCHC (RBC) [Mass/Vol] 31.8 g/dL Low 32-[address] [facility] Comment on above: Performed By: #### L 500.4050, L501.9520, L501.5200, L100.0100, L503.6030, L503.0105, L506.1000 ####[facility] [address] [place], [address] MCV (RBC) [Entitic vol] 89.7 fL Normal 81-99 [facility] Comment on above: Performed By: #### L 500.4050, L501.9520, L501.5200, L100.0100, L503.6030, L503.0105, L506.1000 ####[facility] [address] [place], [address] Monocytes/100 WBC (Bld) 5.9 % Normal 0-10 [facility] Comment on above: Performed By: #### L 500.4050, L501.9520, L501.5200, L100.0100, L503.6030, L503.0105, L506.1000 ####[facility] [address] [place], [address] Neutrophils/100 WBC (Bld) 57.8 % Normal 47-70 [facility] Comment on above: Performed By: #### L 500.4050, L501.9520, L501.5200, L100.0100, L503.6030, L503.0105, L506.1000 ####[facility] [address] [place], [address] Nucleated RBC (Bld) [#/Vol] 0 10*3/uL Normal 0-5 [facility] Comment on above: Performed By: #### L 500.4050, L501.9520, L501.5200, L100.0100, L503.6030, L503.0105, L506.1000 ####[facility] [address] [place], [address] Platelet mean volume (Bld) [Entitic vol] 10.1 fL Normal 6.2-12.0 [facility] Comment on above: Performed By: #### L 500.4050, L501.9520, L501.5200, L100.0100, L503.6030, L503.0105, L506.1000 ####[facility] [address] [place], [address] Platelets (Bld) [#/Vol] 297 10*3/uL Normal 150-450 [facility] Comment on above: Performed By: #### L 500.4050, L501.9520, L501.5200, L100.0100, L503.6030, L503.0105, L506.1000 ####[facility] [address] [place], [address] RBC (Bld) [#/Vol] 4.38 10*6/uL Normal 4.2-5.4 [facility] Comment on above: Performed By: #### L 500.4050, L501.9520, L501.5200, L100.0100, L503.6030, L503.0105, L506.1000 ####[facility] [address] [place], [address] RDW SD 50.6 fl High 35.1-43.9 [facility] Comment on above: Performed By: #### L 500.4050, L501.9520, L501.5200, L100.0100, L503.6030, L503.0105, L506.1000 ####[facility] [address] [place], [address] WBC (Bld) [#/Vol] 6.4 10*3/uL Normal 4.4-11.0 [facility] Comment on above: Performed By: #### L 500.4050, L501.9520, L501.5200, L100.0100, L503.6030, L503.0105, L506.1000 ####[facility] [address] [place], [address] Comprehensive Metabolic Prof ilon 02-07-2024 Albumin [Mass/Vol] 3.8 g/dL Normal 3.2-5.0 [facility] Comment on above: Performed By: #### L 500.4050, L501.9520, L501.5200, L100.0100, L503.6030, L503.0105, L506.1000 ####[facility] [address] [place], [address] Albumin/Globulin [Mass ratio] 0.9 {ratio} Normal 0.9-2.4 [facility] Comment on above: Performed By: #### L 500.4050, L501.9520, L501.5200, L100.0100, L503.6030, L503.0105, L506.1000 ####[facility] [address] [place], [address] ALK P 91 U/L Normal 45-117 [facility] Comment on above: Performed By: #### L 500.4050, L501.9520, L501.5200, L100.0100, L503.6030, L503.0105, L506.1000 ####[facility] [address] [place], [address] ALT [Catalytic activity/Vol] 14 U/L Normal 13-56 [facility] Comment on above: Performed By: #### L 500.4050, L501.9520, L501.5200, L100.0100, L503.6030, L503.0105, L506.1000 ####[facility] [address] [place], [address] AST [Catalytic activity/Vol] 21 U/L Normal 15-37 [facility] Comment on above: Performed By: #### L 500.4050, L501.9520, L501.5200, L100.0100, L503.6030, L503.0105, L506.1000 ####[facility] [address] [place], [address] Bilirubin [Mass/Vol] 0.50 mg/dL Normal 0.20-1.00 [facility] Comment on above: Result Comment: For patients on eltrombopag therapy, use of Dimension Grawn TBIL is not recommended. Performed By: #### L 500.4050, L501.9520, L501.5200, L100.0100, L503.6030, L503.0105, L506.1000 ####[facility] [address] [place], [address] BUN/CRE 31.4 RATIO High 10-20 [facility] Comment on above: Performed By: #### L 500.4050, L501.9520, L501.5200, L100.0100, L503.6030, L503.0105, L506.1000 ####[facility] [address] [place], [address] CA,Total 9.5 mg/dL Normal 8.5-10.1 [facility] Comment on above: Performed By: #### L 500.4050, L501.9520, L501.5200, L100.0100, L503.6030, L503.0105, L506.1000 ####[facility] [address] [place], [address] Chloride [Moles/Vol] 103 mmol/L Normal 98-107 [facility] Comment on above: Performed By: #### L 500.4050, L501.9520, L501.5200, L100.0100, L503.6030, L503.0105, L506.1000 ####[facility] [address] [place], [address] CO2 [Moles/Vol] 30.0 mmol/L Normal 21.0-32.0 [facility] Comment on above: Performed By: #### L 500.4050, L501.9520, L501.5200, L100.0100, L503.6030, L503.0105, L506.1000 ####[facility] [address] [place], [address] Creatinine [Mass/Vol] 0.57 mg/dL Normal 0.55-1.[address] [facility] Comment on above: Result Comment: The validity of the calculated GFR GFRAA in patients over 70 years has not been determined. Clinical correlation is essential. Performed By: #### L 500.4050, L501.9520, L501.5200, L100.0100, L503.6030, L503.0105, L506.1000 ####[facility] [address] [place], [address] EST GFR - AA 136 mL/min Normal >60 [facility] Comment on above: Result Comment: Afri can [place] GFR Calc Performed By: #### L 500.4050, L501.9520, L501.5200, L100.0100, L503.6030, L503.0105, L506.1000 ####[facility] [address] [place], [address] GAP 5 Normal 5-15 [facility] Comment on above: Performed By: #### L 500.4050, L501.9520, L501.5200, L100.0100, L503.6030, L503.0105, L506.1000 ####[facility] [address] [place], [address] GFR/1.73 sq M.predicted among non-blacks MDRD (S/P/Bld) [Vol rate/Area] 112 mL/min/{1.73_m2} Normal >60 [facility] Comment on above: Result Comment: Non- GFR Calc Performed By: #### L 500.4050, L501.9520, L501.5200, L100.0100, L503.6030, L503.0105, L506.1000 ####[facility] [address] [place], [address] Globulin (S) [Mass/Vol] 4.2 g/dL Normal 2.2-4.2 [facility] Comment on above: Performed By: #### L 500.4050, L501.9520, L501.5200, L100.0100, L503.6030, L503.0105, L506.1000 ####[facility] [address] [place], [address] Glucose [Mass/Vol] 115 mg/dL High 74-106 [facility] Comment on above: Result Comment: Fast ing Glucose result from 100 to 125 mg/dL suggests IMPAIRED HOMEOSTASIS per A.D.A. criteria. Performed By: #### L 500.4050, L501.9520, L501.5200, L100.0100, L503.6030, L503.0105, L506.1000 ####[facility] [address] [place], [address] Potassium [Moles/Vol] 3.4 mmol/L Low 3.5-5.[address] [facility] Comment on above: Performed By: #### L 500.4050, L501.9520, L501.5200, L100.0100, L503.6030, L503.0105, L506.1000 ####[facility] [address] [place], [address] Sodium [Moles/Vol] 138 mmol/L Normal 136-145 [facility] Comment on above: Performed By: #### L 500.4050, L501.9520, L501.5200, L100.0100, L503.6030, L503.0105, L506.1000 ####[facility] [address] [place], [address] T PROT 8.0 g/dL Normal 6.4-8.2 [facility] Comment on above: Performed By: #### L 500.4050, L501.9520, L501.5200, L100.0100, L503.6030, L503.0105, L506.1000 ####[facility] [address] [place], [address] Urea nitrogen [Mass/Vol] 18 mg/dL Normal 7-18 [facility] Comment on above: Performed By: #### L 500.4050, L501.9520, L501.5200, L100.0100, L503.6030, L503.0105, L506.1000 ####[facility] [address] [place], [address] Iron+Iron Binding Capacityon 02-07-2024 Iron [Mass/Vol] 68 ug/dL Normal 50-170 [facility] Comment on above: Performed By: #### L 500.4050, L501.9520, L501.5200, L100.0100, L503.6030, L503.0105, L506.1000 ####[facility] [address] [place], [address] IRON SATURATION 15.5 Normal 15.0-55.0 [facility] Comment on above: Performed By: #### L 500.4050, L501.9520, L501.5200, L100.0100, L503.6030, L503.0105, L506.1000 ####[facility] [address] [place], [address] TIBC 438 ug/dL Normal 250-450 [facility] Comment on above: Performed By: #### L 500.4050, L501.9520, L501.5200, L100.0100, L503.6030, L503.0105, L506.1000 ####[facility] [address] [place], [address] Magnesiumon 02-07-2024 Magnesium [Mass/Vol] 2.1 mg/dL Normal 1.6-2.6 [facility] Comment on above: Performed By: #### L 500.4050, L501.9520, L501.5200, L100.0100, L503.6030, L503.0105, L506.1000 ####[facility] [address] [place], [address] Thyroid Stim Hormone (TSH)on 02-07-2024 TSH 1.500 uIU/mL Normal 0.358-3.74 0 [facility] Comment on above: Performed By: #### L 500.4050, L501.9520, L501.5200, L100.0100, L503.6030, L503.0105, L506.1000 ####[facility] [address] [place], [address] Vitamin B12on 02-07-2024 Cobalamin (Vitamin B12) [Mass/Vol] 552 pg/mL Normal 211-911 [facility] Comment on above: Performed By: #### L 500.4050, L501.9520, L501.5200, L100.0100, L503.6030, L503.0105, L506.1000 ####[facility] [address] [place], [address] Vitamin D,25 Hydroxyon 02-06 Vitamin D 25-OH 30.5 ng/mL Normal [facility] Comment on above: Result Comment: Edwige min D 25(OH) Status Range Deficiency <20 ng/mL (50nmol/L) Insufficiency 20 - 30 ng/mL (50 - 75 nmol/L) Sufficiency 30 - 100 ng/mL (75 - 250 nmol/L) Toxicity >100 ng/mL (>250 nmol/L) Performed By: #### L 500.4050, L501.9520, L501.5200, L100.0100, L503.6030, L503.0105, L506.1000 ####[facility] [address] [place], [address] CBC W/Diff, Automatedon 01-25 Absolute Neut Normal 2.0-7.7 [facility] Comment on above: Result Comment: TERELL ENT LEFT, WILL BE BACK MONDAY MORNING FOR LABS. Performed By: #### L 500.4050, L100.0100, L503.6030 ####[facility] [address] [place], [address] HCT Normal 37-47 [facility] Comment on above: Result Comment: TERELL ENT LEFT, WILL BE BACK MONDAY MORNING FOR LABS. Performed By: #### L 500.4050, L100.0100, L503.6030 ####[facility] [address] [place], [address] HGB Normal 12.0-15.0 [facility] Comment on above: Result Comment: TERELL ENT LEFT, WILL BE BACK MONDAY MORNING FOR LABS. Performed By: #### L 500.4050, L100.0100, L503.6030 ####[facility] [address] [place], [address] MCH Normal 27.0-32.0 [facility] Comment on above: Result Comment: TERELL ENT LEFT, WILL BE BACK MONDAY MORNING FOR LABS. Performed By: #### L 500.4050, L100.0100, L503.6030 ####[facility] [address] [place], [address] MCHC Normal 32-36 [facility] Comment on above: Result Comment: TERELL ENT LEFT, WILL BE BACK MONDAY MORNING FOR LABS. Performed By: #### L 500.4050, L100.0100, L503.6030 ####[facility] [address] [place], [address] MCV Normal 81-99 [facility] Comment on above: Result Comment: TERELL ENT LEFT, WILL BE BACK MONNES MORNING FOR LABS. Performed By: #### L 500.4050, L100.0100, L503.6030 ####[facility] [address] [place], [address] NEUT% Normal 47-70 [facility] Comment on above: Result Comment: TERELL ENT LEFT, WILL BE BACK MONNES MORNING FOR LABS. Performed By: #### L 500.4050, L100.0100, L503.6030 ####[facility] [address] [place], [address] PLT Normal 150-450 [facility] Comment on above: Result Comment: TREELL ENT LEFT, WILL BE BACK MONNES MORNING FOR LABS. Performed By: #### L 500.4050, L100.0100, L503.6030 ####[facility] [address] [place], [address] RBC Normal 4.2-5.4 [facility] Comment on above: Result Comment: TERELL ENT LEFT, WILL BE BACK MONDAY MORNING FOR LABS. Performed By: #### L 500.4050, L100.0100, L503.6030 ####[facility] [address] [place], [address] RDW CV Normal 11.6-14.6 [facility] Comment on above: Result Comment: TERELL ENT LEFT, WILL BE BACK MONNES MORNING FOR LABS. Performed By: #### L 500.4050, L100.0100, L503.6030 ####[facility] [address] [place], [address] RDW SD Normal 35.1-43.9 [facility] Comment on above: Result Comment: TERELL ENT LEFT, WILL BE BACK MONDAY MORNING FOR LABS. Performed By: #### L 500.4050, L100.0100, L503.6030 ####[facility] [address] [place], [address] WBC Normal 4.4-11.0 [facility] Comment on above: Result Comment: TERELL ENT LEFT, WILL BE BACK MONDAY MORNING FOR LABS. Performed By: #### L 500.4050, L100.0100, L503.6030 ####[facility] [address] [place], [address] Comprehensive Metabolic Prof ilon 2024 ALB Normal 3.2-5.0 [facility] Comment on above: Result Comment: TERELL ENT LEFT, WILL BE BACK MONDAY MORNING FOR LABS. Performed By: #### L 500.4050, L100.0100, L503.6030 ####[facility] [address] [place], [address] ALK P Normal 45-117 [facility] Comment on above: Result Comment: TERELL ENT LEFT, WILL BE BACK MONDAY MORNING FOR LABS. Performed By: #### L 500.4050, L100.0100, L503.6030 ####[facility] [address] [place], [address] ALT Normal 13-56 [facility] Comment on above: Result Comment: TERELL ENT LEFT, WILL BE BACK MONNES MORNING FOR LABS. Performed By: #### L 500.4050, L100.0100, L503.6030 ####[facility] [address] [place], [address] AST Normal 15-37 [facility] Comment on above: Result Comment: TERELL ENT LEFT, WILL BE BACK MONDAY MORNING FOR LABS. Performed By: #### L 500.4050, L100.0100, L503.6030 ####[facility] [address] [place], [address] BUN Normal 7-18 [facility] Comment on above: Result Comment: TERELL ENT LEFT, WILL BE BACK MONDAY MORNING FOR LABS. Performed By: #### L 500.4050, L100.0100, L503.6030 ####[facility] [address] [place], [address] BUN/CRE Normal 10-20 [facility] Comment on above: Result Comment: TERELL ENT LEFT, WILL BE BACK MONDAY MORNING FOR LABS. Performed By: #### L 500.4050, L100.0100, L503.6030 ####[facility] [address] [place], [address] CA,Total Normal 8.5-10.1 [facility] Comment on above: Result Comment: TERELL ENT LEFT, WILL BE BACK MONDAY MORNING FOR LABS. Performed By: #### L 500.4050, L100.0100, L503.6030 ####[facility] [address] [place], [address] CL Normal 98-107 [facility] Comment on above: Result Comment: TERELL ENT LEFT, WILL BE BACK MONDAY MORNING FOR LABS. Performed By: #### L 500.4050, L100.0100, L503.6030 ####[facility] [address] [place], [address] CO2 Normal 21.0-32.0 [facility] Comment on above: Result Comment: TERELL ENT LEFT, WILL BE BACK MONDAY MORNING FOR LABS. Performed By: #### L 500.4050, L100.0100, L503.6030 ####[facility] [address] [place], [address] CREAT,SERUM Normal 0.55-1.02 [facility] Comment on above: Result Comment: TERELL ENT LEFT, WILL BE BACK MONDAY MORNING FOR LABS. Performed By: #### L 500.4050, L100.0100, L503.6030 ####[facility] [address] [place], [address] EST GFR Normal >60 [facility] Comment on above: Result Comment: TERELL ENT LEFT, WILL BE BACK MONDAY MORNING FOR LABS. Performed By: #### L 500.4050, L100.0100, L503.6030 ####[facility] [address] [place], [address] EST GFR - AA Normal >60 [facility] Comment on above: Result Comment: TERELL ENT LEFT, WILL BE BACK MONDAY MORNING FOR LABS. Performed By: #### L 500.4050, L100.0100, L503.6030 ####[facility] [address] [place], [address] GAP Normal 5-15 [facility] Comment on above: Result Comment: TERELL ENT LEFT, WILL BE BACK MONDAY MORNING FOR LABS. Performed By: #### L 500.4050, L100.0100, L503.6030 ####[facility] [address] [place], [address] GLU Normal 74-106 [facility] Comment on above: Result Comment: TERELL ENT LEFT, WILL BE BACK MONDAY MORNING FOR LABS. Performed By: #### L 500.4050, L100.0100, L503.6030 ####[facility] [address] [place], [address] Potassium Normal 3.5-5.1 [facility] Comment on above: Result Comment: TERELL ENT LEFT, WILL BE BACK MONDAY MORNING FOR LABS. Performed By: #### L 500.4050, L100.0100, L503.6030 ####[facility] [address] [place], [address] T BILI Normal 0.20-1.00 [facility] Comment on above: Result Comment: TERELL ENT LEFT, WILL BE BACK MONDAY MORNING FOR LABS. Performed By: #### L 500.4050, L100.0100, L503.6030 ####[facility] [address] [place], [address] T PROT Normal 6.4-8.2 [facility] Comment on above: Result Comment: TERELL ENT LEFT, WILL BE BACK MONDAY MORNING FOR LABS. Performed By: #### L 500.4050, L100.0100, L503.6030 ####[facility] [address] [place], [address] Comprehensive Metabolic Profil Normal 136-145 [facility] Comment on above: Result Comment: TERELL ENT LEFT, WILL BE BACK MONDAY MORNING FOR LABS. Performed By: #### L 500.4050, L100.0100, L503.6030 ####[facility] [address] [place], [address] Iron+Iron Binding Capacityon 2024 IRON Normal 50-170 [facility] Comment on above: Result Comment: TERELL ENT LEFT, WILL BE BACK MONDAY MORNING FOR LABS. Performed By: #### L 500.4050, L100.0100, L503.6030 ####[facility] [address] [place], [address] IRON SATURATION Normal 15.0-55.0 [facility] Comment on above: Result Comment: TERELL ENT LEFT, WILL BE BACK MONDAY MORNING FOR LABS. Performed By: #### L 500.4050, L100.0100, L503.6030 ####[facility] [address] [place], [address] TIBC Normal 250-450 [facility] Comment on above: Result Comment: TERELL ENT LEFT, WILL BE BACK MONDAY MORNING FOR LABS. Performed By: #### L 500.4050, L100.0100, L503.6030 ####[facility] [address] [place], [address] CNOVSPon 02-01-2024 CNOVSP Normal [facility] CNPNon 01-31-2024 CNPN Normal [facility] CNOVon 01-29-2024 CNOV Normal [facility] CNPNon 01-26-2024 CNPN Normal [facility] CT CHEST WO IVCONon 01-26-20 CT CHEST WO IVCON Normal [facility] CNPNon 01-19-2024 CNPN Normal [facility] CNOVon 01-18-2024 CNOV Normal [facility] CNPNon 01-18-2024 CNPN Normal [facility] CNCOon 01-12-2024 CNCO Letter Text Normal [facility] CNPNon 01-11-2024 CNPN Normal [facility] CNPNon 01-10-2024 CNPN Normal [facility] Basic metabolic 2000 panelon 01-08-2024 Anion gap [Moles/Vol] 12 mmol/L Normal 8-15 [facility] Comment on above: Order Comment: Speci men Type: BLOOD SPECIMENOrdering Facility: [facility] Address: [address] [place] [address] Performed By: #### 1 9123-9, 2777-1, 91634-9 ####[facility] LABORATORYCLIA [id number] [place] [address] [place] Calcium [Mass/Vol] 8.1 mg/dL Low 8.5-10.2 [facility] Comment on above: Order Comment: Speci men Type: BLOOD SPECIMENOrdering Facility: [facility] Address: [address] [place] [address] Performed By: #### 1 9123-9, 2777-1, 02614-7 ####[facility] LABORATORYCLIA [id number] [place] [address] [place] Chloride [Moles/Vol] 98 mmol/L Normal 98-107 [facility] Comment on above: Order Comment: Speci men Type: BLOOD SPECIMENOrdering Facility: [facility] Address: [address] [place] [address] Performed By: #### 1 9123-9, 2777, 62637-7 ####[facility] LABORATORYCLIA [id number] [place] [id number] [place] CO2 [Moles/Vol] 27 mmol/L Normal 22-30 [facility] Comment on above: Order Comment: Speci men Type: BLOOD SPECIMENOrdering Facility: [facility] Address: [address] [place] [address] Performed By: #### 1 9123-9, 2776-03, 34975-9 ####[facility] LABORATORYCLIA [id number] [place] [id number] [place] Creatinine [Mass/Vol] 0.41 mg/dL Low 0.58-0.96 [facility] Comment on above: Order Comment: Speci men Type: BLOOD SPECIMENOrdering Facility: [facility] Address: [address] [place] [address] Performed By: #### 1 9123-9, 27709-24, 36985-8 ####[facility] LABORATORYCLIA [id number] [place] [id number] [place] Creatinine and Glomerular filtration rate.predicted panel (S/P/Bld) 110 mL/min/1.73m??? Normal >=60 [facility] Comment on above: Order Comment: Speci men Type: BLOOD SPECIMENOrdering Facility: [facility] Address: [address] [place] [address] Result Comment: Sana mated Glomerular Filtration Rate (eGFR) is calculated using the 2020 CKD-EPI creatinine equation. This equation utilizes serum creatinine, sex, and age as parameters. The creatinine assay has traceable calibration to isotope dilution-mass spectrometry. Refer to KDIGO guidelines for clinical interpretation. In patients with unstable renal function, e.g. those with acute kidney injury, the eGFR may not accurately reflect actual GFR. Performed By: #### 1 9123-9, 2777-, 62126-2 ####[facility] LABORATORYCLIA [id number] [place] [id number] [place] Glucose [Mass/Vol] 96 mg/dL Normal 74-99 [facility] Comment on above: Order Comment: Umesh lupis Type: BLOOD SPECIMENOrdering Facility: [facility] Address: [address] [place] [address] Result Comment: The [place] [employer] (ADA) provides guidance for cutoff values for fasting glucose and random glucose. The ADA defines fasting as no caloric intake for at least 8 hours. Fasting plasma glucose results between 100 to 125 mg/dL indicate increased risk for diabetes (prediabetes).Fasting plasma glucose results greater than or equal to 126 mg/dL meet the criteria for diagnosis of diabetes. In the absence of unequivocal hyperglycemia, results should be confirmed by repeat testing. In a patient with classic symptoms of hyperglycemia or hyperglycemic crisis, random plasma glucose results greater than or equal to 200 mg/dL meet the criteria for diagnosis of diabetes.Reference: Standards of Medical Care in Diabetes 2016, [place] [employer]. Diabetes Care. 2016.39(Suppl 1). Performed By: #### 1 9123-9, 2777-, 72170-6 ####[facility] LABORATORYCLIA [id number] [place] [address] [place] Potassium [Moles/Vol] 3.6 mmol/L Low 3.7-5.1 [facility] Comment on above: Order Comment: Umesh lupis Type: BLOOD SPECIMENOrdering Facility: [facility] Address: [address] [place] [address] Performed By: #### 1 9123-9, 2777-, 35805-3 ####[facility] LABORATORYCLIA [id number] [place] [id number] [place] Sodium [Moles/Vol] 137 mmol/L Normal 136-144 [facility] Comment on above: Order Comment: Umesh lupis Type: BLOOD SPECIMENOrdering Facility: [facility] Address: [address] [place] [address] Performed By: #### 1 9123-9, 2777, 48446-1 ####[facility] LABORATORYCLIA [id number] [place] [id number] [place] Urea nitrogen [Mass/Vol] 5 mg/dL Low 7-21 [facility] Comment on above: Order Comment: Speci men Type: BLOOD SPECIMENOrdering Facility: [facility] Address: [address] [place] [address] Performed By: #### 1 9123-9, 2777-1, 27734-8 ####EMMAN[facility] LABORATORYCLIA [id number] [place] [id number] [facility] [place] CASE MANAGEMon 01-08-2024 CASE MANAGEM Normal [facility] CBC panel Auto (Bld)on 01-07 Erythrocyte distribution width (RBC) [Ratio] 15.0 % Normal 11.5-15.0 [facility] Comment on above: Order Comment: Speci men Type: BLOOD SPECIMENOrdering Facility: [facility] Address: [address] [place] [address] Performed By: #### 5 8410-2 ####EM[facility] LABORATORYCLIA [id number] [address] [place] Hematocrit (Bld) [Volume fraction] 29.9 % Low 36.0-46.0 [facility] Comment on above: Order Comment: Speci men Type: BLOOD SPECIMENOrdering Facility: [facility] Address: [address] [place] [address] Performed By: #### 5 8410-2 ####EMMAN[facility] LABORATORYCLIA [id number] [place] [id number] [place] Hemoglobin (Bld) [Mass/Vol] 9.6 g/dL Low 11.5-15.5 [facility] Comment on above: Order Comment: Speci men Type: BLOOD SPECIMENOrdering Facility: [facility] Address: [address] [place] [address] Performed By: #### 5 8410-2 ####EMMAN[facility] LABORATORYCLIA [id number] [place] [id number] [place] MCH (RBC) [Entitic mass] 28.0 pg Normal 26.0-34.0 [facility] Comment on above: Order Comment: Speci men Type: BLOOD SPECIMENOrdering Facility: [facility] Address: [facility] [place] [address] Performed By: #### 5 8410-2 ####EMMAN[facility] LABORATORYCLIA [id number] [place] [id number] [place] MCHC (RBC) [Mass/Vol] 32.1 g/dL Normal 30.5-36.0 [facility] Comment on above: Order Comment: Speci men Type: BLOOD SPECIMENOrdering Facility: [facility] Address: [address] [place] [address] Performed By: #### 5 8410-2 ####[facility] LABORATORYCLIA [id number] [place] [address] [place] MCV (RBC) [Entitic vol] 87.2 fL Normal 80.0-100.0 [facility] Comment on above: Order Comment: Speci men Type: BLOOD SPECIMENOrdering Facility: [facility] Address: [address] [place] [address] Performed By: #### 5 8410-2 ####[facility] LABORATORYCLIA [id number] [place] [address] [place] Nucleated RBC (Bld) [#/Vol] 10*3/uL Normal <0.01 [facility] Comment on above: Order Comment: Speci men Type: BLOOD SPECIMENOrdering Facility: [facility] Address: [address] [place] [address] Performed By: #### 5 8410-2 ####[facility] LABORATORYCLIA [id number] [place] [address] [place] Platelet mean volume (Bld) [Entitic vol] 9.1 fL Normal 9.0-12.7 [facility] Comment on above: Order Comment: Speci men Type: BLOOD SPECIMENOrdering Facility: [facility] Address: [address] [place] [address] Performed By: #### 5 8410-2 ####[facility] LABORATORYCLIA [id number] [place] [address] [place] Platelets (Bld) [#/Vol] 365 10*3/uL Normal 150-400 [facility] Comment on above: Order Comment: Speci men Type: BLOOD SPECIMENOrdering Facility: [facility] Address: [address] [place] [address] Performed By: #### 5 8410-2 ####EM[facility] LABORATORYCLIA [id number] [place] [id number] [place] RBC (Bld) [#/Vol] 3.43 10*6/uL Low 3.90-5.20 [facility] Comment on above: Order Comment: Speci men Type: BLOOD SPECIMENOrdering Facility: [facility] Address: [address] [place] [address] Performed By: #### 5 8410-2 ####[facility] LABORATORYCLIA [id number] [place] [id number] [place] WBC (Bld) [#/Vol] 7.11 10*3/uL Normal 3.70-11.00 [facility] Comment on above: Order Comment: Speci men Type: BLOOD SPECIMENOrdering Facility: [facility] Address: [address] [place] [address] Performed By: #### 5 8410-2 ####EM[facility] LABORATORYCLIA [id number] [place] [id number] [place] CNDSon 01-08-2024 CNDS Normal [facility] CNPNon 01-08-2024 CNPN Normal [facility] Magnesium SerPl-ncon 01-07 Magnesium [Mass/Vol] 2.1 mg/dL Normal 1.7-2.3 [facility] Comment on above: Order Comment: Speci men Type: BLOOD SPECIMENOrdering Facility: [facility] Address: [address] [place] [address] Performed By: #### 1 9123-9, 2777-1, 76781-5 ####EM[facility] LABORATORYCLIA [id number] [place] [id number] [place] NURSING PROGon 01-08-2024 NURSING PROG [facility] NURSING PROG [facility] Phosphate SerPl-mCncon 01-07 Phosphate [Mass/Vol] 2.7 mg/dL Normal 2.7-4.8 [facility] Comment on above: Order Comment: Speci men Type: BLOOD SPECIMENOrdering Facility: [facility] Address: [address] [place] [place] [address] Performed By: #### 1 9123-9, 2777, 70968-6 ####EMMANU[facility] LABORATORYCLIA [id number] [place] [address] [place] Basic metabolic 2000 panelon 01-07-2024 Anion gap [Moles/Vol] 13 mmol/L Normal 8-15 [facility] Comment on above: Order Comment: Speci men Type: BLOOD SPECIMENOrdering Facility: [facility] Address: [address] [place] [address] Performed By: #### 1 9123-9, 27709-24, ####EMMAN[facility] LABORATORYCLIA [id number] [place] [id number] [place] Calcium [Mass/Vol] 8.2 mg/dL Low 8.5-10.2 [facility] Comment on above: Order Comment: Speci men Type: BLOOD SPECIMENOrdering Facility: [facility] Address: [address] [address] [place] [address] Performed By: #### 1 9123-9, 2776-03, ####EMMAN[facility] LABORATORYCLIA [id number] [place] [id number] [place] Chloride [Moles/Vol] 97 mmol/L Low 98-107 [facility] Comment on above: Order Comment: Speci men Type: BLOOD SPECIMENOrdering Facility: [facility] Address: [address] [place] [id number] Performed By: #### 1 9123-9, 2771, 77525-2 ####EMMAN[facility]EL LABORATORYCLIA [id number] [place] [id number] [place] CO2 [Moles/Vol] 29 mmol/L Normal 22-30 [facility] Comment on above: Order Comment: Speci men Type: BLOOD SPECIMENOrdering Facility: [facility] Address: [address] [place] [id number] Performed By: #### 1 9123-9, 2777-1, 42058-1 ####[facility] LABORATORYCLIA [id number] [place] [id number] [place] Creatinine [Mass/Vol] 0.53 mg/dL Low 0.58-0.96 [facility] Comment on above: Order Comment: Umesh [facility] Type: BLOOD SPECIMENOrdering Facility: [facility] Address: [address] [place] [address] Performed By: #### 1 9123-9, 2777-1, 58394-8 ####[facility] LABORATORYCLIA [id number] [place] [id number] [place] Creatinine and Glomerular filtration rate.predicted panel (S/P/Bld) 103 mL/min/1.73m??? Normal >=60 [facility] Comment on above: Order Comment: [facility] Type: BLOOD SPECIMENOrdering Facility: [facility] Address: [address] [place] [address] Result Comment: Sana mated Glomerular Filtration Rate (eGFR) is calculated using the 2020 CKD-EPI creatinine equation. This equation utilizes serum creatinine, sex, and age as parameters. The creatinine assay has traceable calibration to isotope dilution-mass spectrometry. Refer to KDIGO guidelines for clinical interpretation. In patients with unstable renal function, e.g. those with acute kidney injury, the eGFR may not accurately reflect actual GFR. Performed By: #### 1 9123-9, 2777-1, 46058-6 ####[facility] LABORATORYCLIA [id number] [place] [id number] [place] Glucose [Mass/Vol] 66 mg/dL Low 74-99 [facility] Comment on above: Order Comment: Umesh lupis Type: BLOOD SPECIMENOrdering Facility: [facility] Address: [address] [place] [address] Result Comment: The [place] [employer] (ADA) provides guidance for cutoff values for fasting glucose and random glucose. The ADA defines fasting as no caloric intake for at least 8 hours. Fasting plasma glucose results between 100 to 125 mg/dL indicate increased risk for diabetes (prediabetes).Fasting plasma glucose results greater than or equal to 126 mg/dL meet the criteria for diagnosis of diabetes. In the absence of unequivocal hyperglycemia, results should be confirmed by repeat testing. In a patient with classic symptoms of hyperglycemia or hyperglycemic crisis, random plasma glucose results greater than or equal to 200 mg/dL meet the criteria for diagnosis of diabetes.Reference: Standards of Medical Care in Diabetes 2016, [place] [employer]. Diabetes Care. 2016.39(Suppl 1). Performed By: #### 1 9123-9, 2777-1, 33978-0 ####[facility] LABORATORYCLIA [id number] [place] [id number] [place] Potassium [Moles/Vol] 3.6 mmol/L Low 3.7-5.1 [facility] Comment on above: Order Comment: Umesh baugh Type: BLOOD SPECIMENOrdering Facility: [facility] Address: [address] [place] [address] Performed By: #### 1 9123-9, 2777, 82536-9 ####[facility] LABORATORYCLIA [id number] [place] [address] [place] Sodium [Moles/Vol] 139 mmol/L Normal 136-144 [facility] Comment on above: Order Comment: Umesh baugh Type: BLOOD SPECIMENOrdering Facility: [facility] Address: [address] [place] [address] Performed By: #### 1 9123-9, 2777, 25583-0 ####[facility] LABORATORYCLIA [id number] [place] [id number] [place] Urea nitrogen [Mass/Vol] 6 mg/dL Low 7-21 [facility] Comment on above: Order Comment: Umesh baugh Type: BLOOD SPECIMENOrdering Facility: [facility] Address: [address] [place] [address] Performed By: #### 1 9123-9, 2777, 00007-1 ####[facility] LABORATORYCLIA [id number] [place] [id number] [place] CBC panel Auto (Bld)on 01-06 Erythrocyte distribution width (RBC) [Ratio] 14.8 % Normal 11.5-15.0 [facility] Comment on above: Order Comment: Speci men Type: BLOOD SPECIMENOrdering Facility: [facility] Address: [address] [place] [address] Performed By: #### 5 8410-2 ####EM[facility] LABORATORYCLIA [id number] [address] [place] Hematocrit (Bld) [Volume fraction] 25.5 % Low 36.0-46.0 [facility] Comment on above: Order Comment: Speci men Type: BLOOD SPECIMENOrdering Facility: [facility] Address: [address] [place] [address] Performed By: #### 5 8410-2 ####[facility] LABORATORYCLIA [id number] [address] [place] Hemoglobin (Bld) [Mass/Vol] 8.3 g/dL Low 11.5-15.5 [facility] Comment on above: Order Comment: Speci men Type: BLOOD SPECIMENOrdering Facility: [facility] Address: [address] [place] [address] Performed By: #### 5 8410-2 ####[facility] LABORATORYCLIA [id number] [place] [address] [place] MCH (RBC) [Entitic mass] 27.9 pg Normal 26.0-34.0 [facility] Comment on above: Order Comment: Speci men Type: BLOOD SPECIMENOrdering Facility: [facility] Address: [address] [place] [address] Performed By: #### 5 8410-2 ####EMMANUEL LABORATORYCLIA [id number] [address] [place] MCHC (RBC) [Mass/Vol] 32.5 g/dL Normal 30.5-36.0 [facility] Comment on above: Order Comment: Speci men Type: BLOOD SPECIMENOrdering Facility: [facility] Address: [address] [place] [address] Performed By: #### 5 8410-2 ####[facility] LABORATORYCLIA [id number] [place] [address] [place] MCV (RBC) [Entitic vol] 85.6 fL Normal 80.0-100.0 [facility] Comment on above: Order Comment: Speci men Type: BLOOD SPECIMENOrdering Facility: [facility] Address: [address] [place] [address] Performed By: #### 5 8410-2 ####EDEN LABORATORYCLIA [id number] [place] [id number] [place] Nucleated RBC (Bld) [#/Vol] 10*3/uL Normal <0.01 [facility] Comment on above: Order Comment: Speci men Type: BLOOD SPECIMENOrdering Facility: [facility] Address: [address] [place] [address] Performed By: #### 5 8410-2 ####ED[facility] LABORATORYCLIA [id number] [place] [address] [place] Platelet mean volume (Bld) [Entitic vol] 9.0 fL Normal 9.0-12.7 [facility] Comment on above: Order Comment: Speci men Type: BLOOD SPECIMENOrdering Facility: [facility] Address: [address] [place] [address] Performed By: #### 5 8410-2 ####ED[facility] LABORATORYCLIA [id number] [place] [address] [place] Platelets (Bld) [#/Vol] 306 10*3/uL Normal 150-400 [facility] Comment on above: Order Comment: Speci men Type: BLOOD SPECIMENOrdering Facility: [facility] Address: [address] [place] [address] Performed By: #### 5 8410-2 ####EDEN LABORATORYCLIA [id number] [place] [address] [place] RBC (Bld) [#/Vol] 2.98 10*6/uL Low 3.90-5.20 [facility] Comment on above: Order Comment: Speci men Type: BLOOD SPECIMENOrdering Facility: [facility] Address: [address] [place] [address] Performed By: #### 5 8410-2 ####EMMANUEL LABORATORYCLIA [id number] [place] [id number] [place] WBC (Bld) [#/Vol] 8.02 10*3/uL Normal 3.70-11.00 [facility] Comment on above: Order Comment: Speci men Type: BLOOD SPECIMENOrdering Facility: [facility] Address: [address] [place] [address] Performed By: #### 5 8410-2 ####EMMANUEL LABORATORYCLIA [id number] [place] [id number] [place] Magnesium SerPl-mCncon 01-06 Magnesium [Mass/Vol] 1.9 mg/dL Normal 1.7-2.3 [facility] Comment on above: Order Comment: Speci men Type: BLOOD SPECIMENOrdering Facility: [facility] Address: [address] [place] [address] Performed By: #### 1 9123-9, 2777-1, 17633-3 ####[facility] LABORATORYCLIA [id number] [place] [id number] [place] Phosphate SerPl-mCncon 01-06 Phosphate [Mass/Vol] 4.1 mg/dL Normal 2.7-4.8 [facility] Comment on above: Order Comment: Speci men Type: BLOOD SPECIMENOrdering Facility: [facility] Address: [address] [place] [address] Performed By: #### 1 9123-9, 2777-1, 24424-8 ####EMMANUEL LABORATORYCLIA [id number] [place] [id number] [place] Basic metabolic 2000 panelon 01-06-2024 Anion gap [Moles/Vol] 8 mmol/L Normal 8-15 [facility] Comment on above: Order Comment: Speci men Type: BLOOD SPECIMENOrdering Facility: [facility] Address: [address] [place] [address] Performed By: #### 1 9123-9, 2777-1, 12626-7 ####EDEN LABORATORYCLIA [id number] [place] [address] [place] Calcium [Mass/Vol] 8.3 mg/dL Low 8.5-10.2 [facility] Comment on above: Order Comment: Speci men Type: BLOOD SPECIMENOrdering Facility: [facility] Address: [address] [place] [address] Performed By: #### 1 9123-9, 2777-1, 65851-6 ####EDEN LABORATORYCLIA [id number] [place] [id number] [place] Chloride [Moles/Vol] 102 mmol/L Normal 98-107 [facility] Comment on above: Order Comment: Speci men Type: BLOOD SPECIMENOrdering Facility: [facility] Address: [address] [place] [address] Performed By: #### 1 9123-9, 2777, 64901-5 ####EDEN LABORATORYCLIA [id number] [place] [id number] [place] CO2 [Moles/Vol] 31 mmol/L High 22-30 [facility] Comment on above: Order Comment: Speci men Type: BLOOD SPECIMENOrdering Facility: [facility] Address: [address] [place] [address] Performed By: #### 1 9123-9, 2777, 09792-7 ####EDEN LABORATORYCLIA [id number] [place] [id number] [place] Creatinine [Mass/Vol] 0.57 mg/dL Low 0.58-0.96 [facility] Comment on above: Order Comment: Speci men Type: BLOOD SPECIMENOrdering Facility: [facility] Address: [address] [place] [address] Performed By: #### 1 9123-9, 2777-1, 20576-7 ####EDEN LABORATORYCLIA [id number] [place] [id number] [place] Creatinine and Glomerular filtration rate.predicted panel (S/P/Bld) 102 mL/min/1.73m??? Normal >=60 [facility] Comment on above: Order Comment: Umesh baugh Type: BLOOD SPECIMENOrdering Facility: [facility] Address: [address] [place] [address] Result Comment: Sana mated Glomerular Filtration Rate (eGFR) is calculated using the 2020 CKD-EPI creatinine equation. This equation utilizes serum creatinine, sex, and age as parameters. The creatinine assay has traceable calibration to isotope dilution-mass spectrometry. Refer to KDIGO guidelines for clinical interpretation. In patients with unstable renal function, e.g. those with acute kidney injury, the eGFR may not accurately reflect actual GFR. Performed By: #### 1 9123-9, 2777-1, 39616-0 ####EDEN LABORATORYCLIA [id number] [place] [address] [place] Glucose [Mass/Vol] 80 mg/dL Normal 74-99 [facility] Comment on above: Order Comment: Umesh baugh Type: BLOOD SPECIMENOrdering Facility: [facility] Address: [address] [place] [address] Result Comment: The [place] [employer] (ADA) provides guidance for cutoff values for fasting glucose and random glucose. The ADA defines fasting as no caloric intake for at least 8 hours. Fasting plasma glucose results between 100 to 125 mg/dL indicate increased risk for diabetes (prediabetes).Fasting plasma glucose results greater than or equal to 126 mg/dL meet the criteria for diagnosis of diabetes. In the absence of unequivocal hyperglycemia, results should be confirmed by repeat testing. In a patient with classic symptoms of hyperglycemia or hyperglycemic crisis, random plasma glucose results greater than or equal to 200 mg/dL meet the criteria for diagnosis of diabetes.Reference: Standards of Medical Care in Diabetes 2016, [place] [employer]. Diabetes Care. 2016.39(Suppl 1). Performed By: #### 1 9123-9, 2777-1, 24745-1 ####EDEN LABORATORYCLIA [id number] [place] [address] [place] Potassium [Moles/Vol] 4.6 mmol/L Normal 3.7-5.1 [facility] Comment on above: Order Comment: Umesh baugh Type: BLOOD SPECIMENOrdering Facility: [facility] Address: [address] [place] [address] Performed By: #### 1 9123-9, 2777-1, 49064-5 ####EDEN LABORATORYCLIA [id number] [place] [id number] [place] Sodium [Moles/Vol] 141 mmol/L Normal 136-144 [facility] Comment on above: Order Comment: Speci men Type: BLOOD SPECIMENOrdering Facility: [facility] Address: [facility] [place] [address] Performed By: #### 1 9123-9, 2777-1, 93322-5 ####EDEN LABORATORYCLIA [id number] [place] [address] [place] Urea nitrogen [Mass/Vol] 8 mg/dL Normal 7-21 [facility] Comment on above: Order Comment: Speci men Type: BLOOD SPECIMENOrdering Facility: [facility] Address: [facility] [place] [address] Performed By: #### 1 9123-9, 2777, 81983-6 ####EDEN LABORATORYCLIA [id number] [address] [place] CBC panel Auto (Bld)on 01-05 Erythrocyte distribution width (RBC) [Ratio] 15.2 % High 11.5-15.0 [facility] Comment on above: Order Comment: Speci men Type: BLOOD SPECIMENOrdering Facility: [facility] Address: [facility] [place] [address] Performed By: #### 5 8410-2 ####EDEN LABORATORYCLIA [id number] [address] [place] [facility] Hematocrit (Bld) [Volume fraction] 24.0 % Low 36.0-46.0 [facility] Comment on above: Order Comment: Speci men Type: BLOOD SPECIMENOrdering Facility: [facility] Address: [facility] [place] [address] Performed By: #### 5 8410-2 ####EDEN LABORATORYCLIA [id number] [place] [address] [place] Hemoglobin (Bld) [Mass/Vol] 7.7 g/dL Low 11.5-15.5 [facility] Comment on above: Order Comment: Speci men Type: BLOOD SPECIMENOrdering Facility: [facility] Address: [address] [place] [address] Performed By: #### 5 8410-2 ####EMMANUEL LABORATORYCLIA [id number] [address] [place] MCH (RBC) [Entitic mass] 28.0 pg Normal 26.0-34.0 [facility] Comment on above: Order Comment: Speci men Type: BLOOD SPECIMENOrdering Facility: [facility] Address: [address] [place] [address] Performed By: #### 5 8410-2 ####EMMANUEL LABORATORYCLIA [id number] [address] [place] MCHC (RBC) [Mass/Vol] 32.1 g/dL Normal 30.5-36.0 [facility] Comment on above: Order Comment: Speci men Type: BLOOD SPECIMENOrdering Facility: [facility] Address: [address] [place] [address] Performed By: #### 5 8410-2 ####EMMANUEL LABORATORYCLIA [id number] [address] [place] MCV (RBC) [Entitic vol] 87.3 fL Normal 80.0-100.0 [facility] Comment on above: Order Comment: Speci men Type: BLOOD SPECIMENOrdering Facility: [facility] Address: [address] [place] [address] Performed By: #### 5 8410-2 ####EMMANUEL LABORATORYCLIA [id number] [address] [place] Nucleated RBC (Bld) [#/Vol] 10*3/uL Normal <0.01 [facility] Comment on above: Order Comment: Speci men Type: BLOOD SPECIMENOrdering Facility: [facility] Address: [address] [place] [address] Performed By: #### 5 8410-2 ####EMMANUEL LABORATORYCLIA [id number] [place] [id number] [place] Platelet mean volume (Bld) [Entitic vol] 9.1 fL Normal 9.0-12.7 [facility] Comment on above: Order Comment: Speci men Type: BLOOD SPECIMENOrdering Facility: [facility] Address: [address] [place] [address] Performed By: #### 5 8410-2 ####EDEN LABORATORYCLIA [id number] [place] [id number] [place] Platelets (Bld) [#/Vol] 265 10*3/uL Normal 150-400 [facility] Comment on above: Order Comment: Speci men Type: BLOOD SPECIMENOrdering Facility: [facility] Address: [address] [place] [address] Performed By: #### 5 8410-2 ####[facility] LABORATORYCLIA [id number] [place] [id number] [place] RBC (Bld) [#/Vol] 2.75 10*6/uL Low 3.90-5.20 [facility] Comment on above: Order Comment: Speci men Type: BLOOD SPECIMENOrdering Facility: [facility] Address: [address] [place] [address] Performed By: #### 5 8410-2 ####EDEN LABORATORYCLIA [id number] [place] [id number] [place] WBC (Bld) [#/Vol] 9.18 10*3/uL Normal 3.70-11.00 [facility] Comment on above: Order Comment: Speci men Type: BLOOD SPECIMENOrdering Facility: [facility] Address: [address] [place] [address] Performed By: #### 5 8410-2 ####EDEN LABORATORYCLIA [id number] [place] [id number] [place] Magnesium SerPl-mCncon 01-05 Magnesium [Mass/Vol] 1.6 mg/dL Low 1.7-2.3 [facility] Comment on above: Order Comment: Speci men Type: BLOOD SPECIMENOrdering Facility: [facility] Address: [address] [facility] [place] [id number] Performed By: #### 1 9123-9, 2777-1, 91411-3 ####EMMANUEL LABORATORYCLIA [id number] [place] [address] [place] Phosphate SerPl-mCncon 01-05 Phosphate [Mass/Vol] 4.3 mg/dL Normal 2.7-4.8 [facility] Comment on above: Order Comment: Speci men Type: BLOOD SPECIMENOrdering Facility: [facility] Address: [address] [place] [address] Performed By: #### 1 9123-9, 2777-1, ####EMMANUEL LABORATORYCLIA [id number] [place] [id number] [place] Basic metabolic 2000 panelon 01-05-2024 Anion gap [Moles/Vol] 9 mmol/L Normal 8-15 [facility] Comment on above: Order Comment: Speci men Type: BLOOD SPECIMENOrdering Facility: [facility] Address: [address] [place] [address] Performed By: #### 2 4321-2, 2776-03, ####EMMANUEL LABORATORYCLIA [id number] [place] [address] [place] Calcium [Mass/Vol] 8.6 mg/dL Normal 8.5-10.2 [facility] Comment on above: Order Comment: Speci men Type: BLOOD SPECIMENOrdering Facility: [facility] Address: [address] [place] [address] Performed By: #### 2 4321-2, 2776-03, ####EMMANUEL LABORATORYCLIA [id number] [place] [address] [place] Chloride [Moles/Vol] 100 mmol/L Normal 98-107 [facility] Comment on above: Order Comment: Speci men Type: BLOOD SPECIMENOrdering Facility: [facility] Address: [address] [place] [address] Performed By: #### 2 4321-2, 2776-03, ####[facility] LABORATORYCLIA [id number] [place] [address] [place] CO2 [Moles/Vol] 31 mmol/L High 22-30 [facility] Comment on above: Order Comment: Speci men Type: BLOOD SPECIMENOrdering Facility: [facility] Address: [address] [place] [address] Performed By: #### 2 4321-2, 2776-03, ####[facility] LABORATORYCLIA [id number] [place] [address] [place] Creatinine [Mass/Vol] 0.61 mg/dL Normal 0.58-0.96 [facility] Comment on above: Order Comment: Speci men Type: BLOOD SPECIMENOrdering Facility: [facility] Address: [address] [place] [address] Performed By: #### 2 4321-2, 2776-03, ####[facility] LABORATORYCLIA [id number] [place] [id number] [place] Creatinine and Glomerular filtration rate.predicted panel (S/P/Bld) 100 mL/min/1.73m??? Normal >=60 [facility] Comment on above: Order Comment: Speci men Type: BLOOD SPECIMENOrdering Facility: [facility] Address: [address] [place] [address] Result Comment: Sana mated Glomerular Filtration Rate (eGFR) is calculated using the 2020 CKD-EPI creatinine equation. This equation utilizes serum creatinine, sex, and age as parameters. The creatinine assay has traceable calibration to isotope dilution-mass spectrometry. Refer to KDIGO guidelines for clinical interpretation. In patients with unstable renal function, e.g. those with acute kidney injury, the eGFR may not accurately reflect actual GFR. Performed By: #### 2 4321-2, 27709-24, ####[facility] LABORATORYCLIA [id number] [place] [address] [place] Glucose [Mass/Vol] 84 mg/dL Normal 74-99 [facility] Comment on above: Order Comment: Umesh lupis Type: BLOOD SPECIMENOrdering Facility: [facility] Address: [address] [place] [address] Result Comment: The [place] [employer] (ADA) provides guidance for cutoff values for fasting glucose and random glucose. The ADA defines fasting as no caloric intake for at least 8 hours. Fasting plasma glucose results between 100 to 125 mg/dL indicate increased risk for diabetes (prediabetes).Fasting plasma glucose results greater than or equal to 126 mg/dL meet the criteria for diagnosis of diabetes. In the absence of unequivocal hyperglycemia, results should be confirmed by repeat testing. In a patient with classic symptoms of hyperglycemia or hyperglycemic crisis, random plasma glucose results greater than or equal to 200 mg/dL meet the criteria for diagnosis of diabetes.Reference: Standards of Medical Care in Diabetes 2016, [place] [employer]. Diabetes Care. 2016.39(Suppl 1). Performed By: #### 2 4321-2, 2776-03, ####ED[facility] LABORATORYCLIA [id number] [place] [id number] [place] Potassium [Moles/Vol] 4.2 mmol/L Normal 3.7-5.1 [facility] Comment on above: Order Comment: Umesh baugh Type: BLOOD SPECIMENOrdering Facility: [facility] Address: [address] [place], [place] [address] Performed By: #### 2 4321-2, 2776-03, ####EDEN LABORATORYCLIA [id number] [place] [id number] [place] Sodium [Moles/Vol] 140 mmol/L Normal 136-144 [facility] Comment on above: Order Comment: Umesh lupis Type: BLOOD SPECIMENOrdering Facility: [facility] Address: [address] [place], [place] [address] Performed By: #### 2 4321-2, 2776-03, ####[facility] LABORATORYCLIA [id number] [place] [address] [place] Urea nitrogen [Mass/Vol] 13 mg/dL Normal 7-21 [facility] Comment on above: Order Comment: Speci men Type: BLOOD SPECIMENOrdering Facility: [facility] Address: [address] [place] [address] Performed By: #### 2 4321-2, 2777-1, 10831-6 ####[facility] LABORATORYCLIA [id number] [place] [id number] [facility] [place] CASE MANAGEMon 01-05-2024 CASE MANAGEM Normal [facility] CBC panel Auto (Bld)on 01-04 Erythrocyte distribution width (RBC) [Ratio] 15.2 % High 11.5-15.0 [facility] Comment on above: Order Comment: Speci men Type: BLOOD SPECIMENOrdering Facility: [facility] Address: [address] [place] [address] Performed By: #### 5 8410-2 ####[facility] LABORATORYCLIA [id number] [address] [place] Hematocrit (Bld) [Volume fraction] 25.2 % Low 36.0-46.0 [facility] Comment on above: Order Comment: Speci men Type: BLOOD SPECIMENOrdering Facility: [facility] Address: [address] [place] [address] Performed By: #### 5 8410-2 ####[facility] LABORATORYCLIA [id number] [place] [id number] [place] Hemoglobin (Bld) [Mass/Vol] 8.3 g/dL Low 11.5-15.5 [facility] Comment on above: Order Comment: Speci men Type: BLOOD SPECIMENOrdering Facility: [facility] Address: [address] [place] [address] Performed By: #### 5 8410-2 ####[facility] LABORATORYCLIA [id number] [place] [id number] [place] MCH (RBC) [Entitic mass] 28.1 pg Normal 26.0-34.0 [facility] Comment on above: Order Comment: Speci men Type: BLOOD SPECIMENOrdering Facility: [facility] Address: [address] [place] [address] Performed By: #### 5 8410-2 ####EMMANUEL LABORATORYCLIA [id number] [place] [id number] [place] MCHC (RBC) [Mass/Vol] 32.9 g/dL Normal 30.5-36.0 [facility] Comment on above: Order Comment: Speci men Type: BLOOD SPECIMENOrdering Facility: [facility] Address: [address] [place] [address] Performed By: #### 5 8410-2 ####[facility] LABORATORYCLIA [id number] [place] [address] [place] MCV (RBC) [Entitic vol] 85.4 fL Normal 80.0-100.0 [facility] Comment on above: Order Comment: Speci men Type: BLOOD SPECIMENOrdering Facility: [facility] Address: [address] [place] [address] Performed By: #### 5 8410-2 ####EMMANUEL LABORATORYCLIA [id number] [place] [address] [place] Nucleated RBC (Bld) [#/Vol] 10*3/uL Normal <0.01 [facility] Comment on above: Order Comment: Speci men Type: BLOOD SPECIMENOrdering Facility: [facility] Address: [address] [place] [address] Performed By: #### 5 8410-2 ####EMMANUEL LABORATORYCLIA [id number] [place] [address] [place] Platelet mean volume (Bld) [Entitic vol] 9.0 fL Normal 9.0-12.7 [facility] Comment on above: Order Comment: Speci men Type: BLOOD SPECIMENOrdering Facility: [facility] Address: [address] [place] [address] Performed By: #### 5 8410-2 ####[facility] LABORATORYCLIA [id number] [address] [place] Platelets (Bld) [#/Vol] 264 10*3/uL Normal 150-400 [facility] Comment on above: Order Comment: Speci men Type: BLOOD SPECIMENOrdering Facility: [facility] Address: [address] [place] [address] Performed By: #### 5 8410-2 ####EMMANUEL LABORATORYCLIA [id number] [place] [id number] [place] RBC (Bld) [#/Vol] 2.95 10*6/uL Low 3.90-5.20 [facility] Comment on above: Order Comment: Speci men Type: BLOOD SPECIMENOrdering Facility: [facility] Address: [address] [place] [address] Performed By: #### 5 8410-2 ####EMMANUEL LABORATORYCLIA [id number] [place] [id number] [place] WBC (Bld) [#/Vol] 10.25 10*3/uL Normal 3.70-11.00 [facility] Comment on above: Order Comment: Speci men Type: BLOOD SPECIMENOrdering Facility: [facility] Address: [address] [place] [address] Performed By: #### 5 8410-2 ####EMMANUEL LABORATORYCLIA [id number] [place] [id number] [place] Magnesium SerPl-mCncon 01-04 Magnesium [Mass/Vol] 1.9 mg/dL Normal 1.7-2.3 [facility] Comment on above: Order Comment: Speci men Type: BLOOD SPECIMENOrdering Facility: [facility] Address: [address] [place] [address] Performed By: #### 2 4321-2, 2777, ####EMMANUEL LABORATORYCLIA [id number] [place] [id number] [place] Phosphate SerPl-mCncon 01-04 Phosphate [Mass/Vol] 3.7 mg/dL Normal 2.7-4.8 [facility] Comment on above: Order Comment: Speci men Type: BLOOD SPECIMENOrdering Facility: [facility] Address: [address] [place] [address] Performed By: #### 2 4321-2, 2776-03, ####ED[facility] LABORATORYCLIA [id number] [place] [address] [place] THERAPY NTon 01-05-2024 THERAPY NT Normal [facility] Basic metabolic 2000 panelon 01-04-2024 Anion gap [Moles/Vol] 10 mmol/L Normal 8-15 [facility] Comment on above: Order Comment: Speci men Type: BLOOD SPECIMENOrdering Facility: [facility] Address: [address] [place], [place] [address] Performed By: #### 2 4321-2, , 2776-03 ####EDEN LABORATORYCLIA [id number] [place] [id number] [place] Calcium [Mass/Vol] 8.2 mg/dL Low 8.5-10.2 [facility] Comment on above: Order Comment: Speci men Type: BLOOD SPECIMENOrdering Facility: [facility] Address: [address] [place] [address] Performed By: #### 2 4320-2, , 2776-03 ####ED[facility] LABORATORYCLIA [id number] [place] [id number] [place] Chloride [Moles/Vol] 99 mmol/L Normal 98-107 [facility] Comment on above: Order Comment: Speci men Type: BLOOD SPECIMENOrdering Facility: [facility] Address: [facility] [place] [address] Performed By: #### 2 4321-2, , 2776-03 ####EDEN LABORATORYCLIA [id number] [place] [address] [place] CO2 [Moles/Vol] 27 mmol/L Normal 22-30 [facility] Comment on above: Order Comment: Speci men Type: BLOOD SPECIMENOrdering Facility: [facility] Address: [address] [place], [place] [address] [id number] Performed By: #### 2 4321-2, , 2776-03 ####EDEN LABORATORYCLIA [id number] [place] [address] [place] Creatinine [Mass/Vol] 0.59 mg/dL Normal 0.58-0.96 [facility] Comment on above: Order Comment: Umesh baugh Type: BLOOD SPECIMENOrdering Facility: [facility] Address: [address] [place] [address] Performed By: #### 2 4321-2, 36488-8, 2776-03 ####EDEN LABORATORYCLIA [id number] [place] [id number] [place] Creatinine and Glomerular filtration rate.predicted panel (S/P/Bld) 101 mL/min/1.73m??? Normal >=60 [facility] Comment on above: Order Comment: Umesh baugh Type: BLOOD SPECIMENOrdering Facility: [facility] Address: [address] [place] [address] Result Comment: Sana mated Glomerular Filtration Rate (eGFR) is calculated using the 2020 CKD-EPI creatinine equation. This equation utilizes serum creatinine, sex, and age as parameters. The creatinine assay has traceable calibration to isotope dilution-mass spectrometry. Refer to KDIGO guidelines for clinical interpretation. In patients with unstable renal function, e.g. those with acute kidney injury, the eGFR may not accurately reflect actual GFR. Performed By: #### 2 4321-2, , 2776-03 ####EDEN LABORATORYCLIA [id number] [place] [id number] [place] Glucose [Mass/Vol] 137 mg/dL High 74-99 [facility] Comment on above: Order Comment: Umesh baugh Type: BLOOD SPECIMENOrdering Facility: [facility] Address: [address] [place] [address] Result Comment: The [place] Diabetes Association (ADA) provides guidance for cutoff values for fasting glucose and random glucose. The ADA defines fasting as no caloric intake for at least 8 hours. Fasting plasma glucose results between 100 to 125 mg/dL indicate increased risk for diabetes (prediabetes).Fasting plasma glucose results greater than or equal to 126 mg/dL meet the criteria for diagnosis of diabetes. In the absence of unequivocal hyperglycemia, results should be confirmed by repeat testing. In a patient with classic symptoms of hyperglycemia or hyperglycemic crisis, random plasma glucose results greater than or equal to 200 mg/dL meet the criteria for diagnosis of diabetes.Reference: Standards of Medical Care in Diabetes 2016, [place] [employer]. Diabetes Care. 2016.39(Suppl 1). Performed By: #### 2 4321-2, , 2776-03 ####EMMANUEL LABORATORYCLIA [id number] [place] [address] [place] Potassium [Moles/Vol] 4.3 mmol/L Normal 3.7-5.1 [facility] Comment on above: Order Comment: Speci men Type: BLOOD SPECIMENOrdering Facility: [facility] Address: [address] [place] [address] Performed By: #### 2 4321-2, , 2776-03 ####EMMANUEL LABORATORYCLIA [id number] [place] [id number] [place] Sodium [Moles/Vol] 136 mmol/L Normal 136-144 [facility] Comment on above: Order Comment: Speci men Type: BLOOD SPECIMENOrdering Facility: [facility] Address: [address] [place] [id number] Performed By: #### 2 4321-2, , 2776-03 ####[facility] LABORATORYCLIA [id number] [place] [id number] [place] Urea nitrogen [Mass/Vol] 15 mg/dL Normal 7-21 [facility] Comment on above: Order Comment: Speci men Type: BLOOD SPECIMENOrdering Facility: [facility] Address: [address] [place] [address] Performed By: #### 2 4321-2, , 2776-03 ####[facility] LABORATORYCLIA [id number] [place] [id number] [place] CASE MGT INIT ASSESon 2023 CASE MGT INIT ASSES Normal [facility] CBC panel Auto (Bld)on 01-03 Erythrocyte distribution width (RBC) [Ratio] 14.6 % Normal 11.5-15.0 [facility] Comment on above: Order Comment: Speci men Type: BLOOD SPECIMENOrdering Facility: [facility] Address: [address] [place] [address] Performed By: #### 5 8410-2 ####EMMANUEL LABORATORYCLIA [id number] [address] Hematocrit (Bld) [Volume fraction] 25.9 % Low 36.0-46.0 [facility] Comment on above: Order Comment: Speci men Type: BLOOD SPECIMENOrdering Facility: [facility] Address: [address] [place] [address] Performed By: #### 5 8410-2 ####[facility] LABORATORYCLIA [id number] [address] [place] Hemoglobin (Bld) [Mass/Vol] 9.0 g/dL Low 11.5-15.5 [facility] Comment on above: Order Comment: Speci men Type: BLOOD SPECIMENOrdering Facility: [facility] Address: [address] [place] [address] Performed By: #### 5 8410-2 ####EMMANUEL LABORATORYCLIA [id number] [address] [facility] MCH (RBC) [Entitic mass] 28.3 pg Normal 26.0-34.0 [facility] Comment on above: Order Comment: Speci men Type: BLOOD SPECIMENOrdering Facility: [facility] Address: [address] [place] [address] Performed By: #### 5 8410-2 ####EMMANUEL LABORATORYCLIA [id number] [address] [place] MCHC (RBC) [Mass/Vol] 34.7 g/dL Normal 30.5-36.0 [facility] Comment on above: Order Comment: Speci men Type: BLOOD SPECIMENOrdering Facility: [facility] Address: [address] [place] [address] Performed By: #### 5 8410-2 ####[facility] LABORATORYCLIA [id number] [place] [address] [place] MCV (RBC) [Entitic vol] 81.4 fL Normal 80.0-100.0 [facility] Comment on above: Order Comment: Speci men Type: BLOOD SPECIMENOrdering Facility: [facility] Address: [address] [place] [address] Performed By: #### 5 8410-2 ####[facility] LABORATORYCLIA [id number] [place] [address] [place] Nucleated RBC (Bld) [#/Vol] 10*3/uL Normal <0.01 [facility] Comment on above: Order Comment: Speci men Type: BLOOD SPECIMENOrdering Facility: [facility] Address: [address] [place] [address] Performed By: #### 5 8410-2 ####[facility] LABORATORYCLIA [id number] [place] [address] [place] Platelet mean volume (Bld) [Entitic vol] 9.5 fL Normal 9.0-12.7 [facility] Comment on above: Order Comment: Speci men Type: BLOOD SPECIMENOrdering Facility: [facility] Address: [address] [place] [address] Performed By: #### 5 8410-2 ####[facility] LABORATORYCLIA [id number] [place] [address] [place] Platelets (Bld) [#/Vol] 264 10*3/uL Normal 150-400 [facility] Comment on above: Order Comment: Speci men Type: BLOOD SPECIMENOrdering Facility: [facility] Address: [address] [place] [address] Performed By: #### 5 8410-2 ####[facility] LABORATORYCLIA [id number] [place] [address] [place] RBC (Bld) [#/Vol] 3.18 10*6/uL Low 3.90-5.20 [facility] Comment on above: Order Comment: Speci men Type: BLOOD SPECIMENOrdering Facility: [facility] Address: [address] [place] [address] Performed By: #### 5 8410-2 ####[facility] LABORATORYCLIA [id number] [place] [address] [place] WBC (Bld) [#/Vol] 14.42 10*3/uL High 3.70-11.00 [facility] Comment on above: Order Comment: Speci men Type: BLOOD SPECIMENOrdering Facility: [facility] Address: [address] [place] [address] Performed By: #### 5 8410-2 ####[facility] LABORATORYCLIA [id number] [address] [place] Erythrocyte distribution width (RBC) [Ratio] 13.7 % Normal 11.5-15.0 [facility] Comment on above: Order Comment: Speci men Type: BLOOD SPECIMENOrdering Facility: [facility] Address: [address] [place] [address] Performed By: #### 5 8410-2 ####[facility] LABORATORYCLIA [id number] [address] [place] Hematocrit (Bld) [Volume fraction] 22.4 % Low 36.0-46.0 [facility] Comment on above: Order Comment: Speci men Type: BLOOD SPECIMENOrdering Facility: [facility] Address: [address] [place] [address] Performed By: #### 5 8410-2 ####[facility] LABORATORYCLIA [id number] [address] [place] Hemoglobin (Bld) [Mass/Vol] 7.5 g/dL Low 11.5-15.5 [facility] Comment on above: Order Comment: Speci men Type: BLOOD SPECIMENOrdering Facility: [facility] Address: [address] [place] [address] Performed By: #### 5 8410-2 ####[facility] LABORATORYCLIA [id number] [address] MCH (RBC) [Entitic mass] 28.8 pg Normal 26.0-34.0 [facility] Comment on above: Order Comment: Speci men Type: BLOOD SPECIMENOrdering Facility: [facility] Address: [address] [place] [address] Performed By: #### 5 8410-2 ####EMMANUEL LABORATORYCLIA [id number] [place] [id number] [place] MCHC (RBC) [Mass/Vol] 33.5 g/dL Normal 30.5-36.0 [facility] Comment on above: Order Comment: Speci men Type: BLOOD SPECIMENOrdering Facility: [facility] Address: [address] [place] [address] Performed By: #### 5 8410-2 ####[facility] LABORATORYCLIA [id number] [place] [address] [place] MCV (RBC) [Entitic vol] 86.2 fL Normal 80.0-100.0 [facility] Comment on above: Order Comment: Speci men Type: BLOOD SPECIMENOrdering Facility: [facility] Address: [address] [place] [address] Performed By: #### 5 8410-2 ####[facility] LABORATORYCLIA [id number] [place] [address] [place] Nucleated RBC (Bld) [#/Vol] 10*3/uL Normal <0.01 [facility] Comment on above: Order Comment: Speci men Type: BLOOD SPECIMENOrdering Facility: [facility] Address: [address] [place] [address] Performed By: #### 5 8410-2 ####EMMANUEL LABORATORYCLIA [id number] [place] [address] [place] Platelet mean volume (Bld) [Entitic vol] 9.0 fL Normal 9.0-12.7 [facility] Comment on above: Order Comment: Speci men Type: BLOOD SPECIMENOrdering Facility: [facility] Address: [address] [place] [address] Performed By: #### 5 8410-2 ####[facility] LABORATORYCLIA [id number] [place] [address] [place] Platelets (Bld) [#/Vol] 312 10*3/uL Normal 150-400 [facility] Comment on above: Order Comment: Speci men Type: BLOOD SPECIMENOrdering Facility: [facility] Address: [address] [place] [address] Performed By: #### 5 8410-2 ####EDEN LABORATORYCLIA [id number] [place] [address] [place] RBC (Bld) [#/Vol] 2.60 10*6/uL Low 3.90-5.20 [facility] Comment on above: Order Comment: Speci men Type: BLOOD SPECIMENOrdering Facility: [facility] Address: [address] [place] [address] Performed By: #### 5 8410-2 ####EDEN LABORATORYCLIA [id number] [address] [place] WBC (Bld) [#/Vol] 14.35 10*3/uL High 3.70-11.00 [facility] Comment on above: Order Comment: Speci men Type: BLOOD SPECIMENOrdering Facility: [facility] Address: [address] [place] [address] Performed By: #### 5 8410-2 ####EDEN LABORATORYCLIA [id number] [address] Erythrocyte distribution width (RBC) [Ratio] 13.6 % Normal 11.5-15.0 [facility] Comment on above: Order Comment: Speci men Type: BLOOD SPECIMENOrdering Facility: [facility] Address: [address] [place] [address] Performed By: #### 5 8410-2 ####EDEN LABORATORYCLIA [id number] [address] Hematocrit (Bld) [Volume fraction] 23.0 % Low 36.0-46.0 [facility] Comment on above: Order Comment: Speci men Type: BLOOD SPECIMENOrdering Facility: [facility] Address: [address] [place] [address] Performed By: #### 5 8410-2 ####EDEN LABORATORYCLIA [id number] [address] Hemoglobin (Bld) [Mass/Vol] 7.6 g/dL Low 11.5-15.5 [facility] Comment on above: Order Comment: Speci men Type: BLOOD SPECIMENOrdering Facility: [facility] Address: [address] [place] [address] Performed By: #### 5 8410-2 ####EMMANUEL LABORATORYCLIA [id number] [address] [place] MCH (RBC) [Entitic mass] 28.6 pg Normal 26.0-34.0 [facility] Comment on above: Order Comment: Speci men Type: BLOOD SPECIMENOrdering Facility: [facility] Address: [address] [place] [address] Performed By: #### 5 8410-2 ####[facility] LABORATORYCLIA [id number] [address] [place] [facility] MCHC (RBC) [Mass/Vol] 33.0 g/dL Normal 30.5-36.0 [facility] Comment on above: Order Comment: Speci men Type: BLOOD SPECIMENOrdering Facility: [facility] Address: [address] [place] [address] Performed By: #### 5 8410-2 ####EMMANUEL LABORATORYCLIA [id number] [address] MCV (RBC) [Entitic vol] 86.5 fL Normal 80.0-100.0 [facility] Comment on above: Order Comment: Speci men Type: BLOOD SPECIMENOrdering Facility: [facility] Address: [address] [place] [address] Performed By: #### 5 8410-2 ####[facility] LABORATORYCLIA [id number] [address] [place] Nucleated RBC (Bld) [#/Vol] 10*3/uL Normal <0.01 [facility] Comment on above: Order Comment: Speci men Type: BLOOD SPECIMENOrdering Facility: [facility] Address: [address] [place] [address] Performed By: #### 5 8410-2 ####EDEN LABORATORYCLIA [id number] [place] [id number] [place] Platelet mean volume (Bld) [Entitic vol] 9.0 fL Normal 9.0-12.7 [facility] Comment on above: Order Comment: Speci men Type: BLOOD SPECIMENOrdering Facility: [facility] Address: [address] [place] [address] Performed By: #### 5 8410-2 ####EDEN LABORATORYCLIA [id number] [place] [id number] [place] Platelets (Bld) [#/Vol] 278 10*3/uL Normal 150-400 [facility] Comment on above: Order Comment: Speci men Type: BLOOD SPECIMENOrdering Facility: [facility] Address: [address] [place] [address] Performed By: #### 5 8410-2 ####EDEN LABORATORYCLIA [id number] [place] [address] [place] RBC (Bld) [#/Vol] 2.66 10*6/uL Low 3.90-5.20 [facility] Comment on above: Order Comment: Speci men Type: BLOOD SPECIMENOrdering Facility: [facility] Address: [address] [place] [address] Performed By: #### 5 8410-2 ####EDEN LABORATORYCLIA [id number] [place] [id number] [place] WBC (Bld) [#/Vol] 13.11 10*3/uL High 3.70-11.00 [facility] Comment on above: Order Comment: Speci men Type: BLOOD SPECIMENOrdering Facility: [facility] Address: [address] [place] [address] Performed By: #### 5 8410-2 ####EDEN LABORATORYCLIA [id number] [place] [id number] [place] CNPNon 01-04-2024 CNPN Normal [facility] Magnesium SerPl-mCncon 10-10 -2024 Magnesium [Mass/Vol] 1.7 mg/dL Normal 1.7-2.3 [facility] Comment on above: Order Comment: Speci men Type: BLOOD SPECIMENOrdering Facility: [facility] Address: [address] [place] [address] Performed By: #### 2 4321-2, 76149-1, 2776-03 ####EMMANUEL LABORATORYCLIA [id number] [place] [id number] [place] Phosphate SerPl-mCncon 01-03 Phosphate [Mass/Vol] 4.6 mg/dL Normal 2.7-4.8 [facility] Comment on above: Order Comment: Speci men Type: BLOOD SPECIMENOrdering Facility: [facility] Address: [address] [place] [address] Performed By: #### 2 4321-2, , 2776-03 ####EMMANUEL LABORATORYCLIA [id number] [place] [id number] [place] THERAPY NTon 01-04-2024 THERAPY NT Normal [facility] ANES POSTPROC EVALon 024 ANES POSTPROC EVAL Normal [facility] ANES PRE-OPon 01-03-2024 ANES PRE-OP Normal [facility] BRIEF OP NOTon 01-03-2024 BRIEF OP NOT Normal [facility] CBC panel Auto (Bld)on 01-02 Erythrocyte distribution width (RBC) [Ratio] 13.6 % Normal 11.5-15.0 [facility] Comment on above: Order Comment: Speci men Type: BLOOD SPECIMENOrdering Facility: [facility] Address: [address] [place] [address] Performed By: #### 5 8410-2 ####EMMANUEL LABORATORYCLIA [id number] [place] [id number] [place] Hematocrit (Bld) [Volume fraction] 29.2 % Low 36.0-46.0 [facility] Comment on above: Order Comment: Speci men Type: BLOOD SPECIMENOrdering Facility: [facility] Address: [address] [place] [address] Performed By: #### 5 8410-2 ####[facility] LABORATORYCLIA [id number] [place] [address] [place] Hemoglobin (Bld) [Mass/Vol] 9.6 g/dL Low 11.5-15.5 [facility] Comment on above: Order Comment: Speci men Type: BLOOD SPECIMENOrdering Facility: [facility] Address: [address] [place] [address] Performed By: #### 5 8410-2 ####[facility] LABORATORYCLIA [id number] [place] [address] [place] MCH (RBC) [Entitic mass] 28.7 pg Normal 26.0-34.0 [facility] Comment on above: Order Comment: Speci men Type: BLOOD SPECIMENOrdering Facility: [facility] Address: [address] [place] [address] Performed By: #### 5 8410-2 ####[facility] LABORATORYCLIA [id number] [address] [place] MCHC (RBC) [Mass/Vol] 32.9 g/dL Normal 30.5-36.0 [facility] Comment on above: Order Comment: Speci men Type: BLOOD SPECIMENOrdering Facility: [facility] Address: [address] [place] [address] Performed By: #### 5 8410-2 ####[facility] LABORATORYCLIA [id number] [address] [place] MCV (RBC) [Entitic vol] 87.4 fL Normal 80.0-100.0 [facility] Comment on above: Order Comment: Speci men Type: BLOOD SPECIMENOrdering Facility: [facility] Address: [address] [place] [address] Performed By: #### 5 8410-2 ####[facility] LABORATORYCLIA [id number] [address] [place] Nucleated RBC (Bld) [#/Vol] 10*3/uL Normal <0.01 [facility] Comment on above: Order Comment: Speci men Type: BLOOD SPECIMENOrdering Facility: [facility] Address: [address] [place] [address] Performed By: #### 5 8410-2 ####EDEN LABORATORYCLIA [id number] [place] [id number] [place] Platelet mean volume (Bld) [Entitic vol] 9.1 fL Normal 9.0-12.7 [facility] Comment on above: Order Comment: Speci men Type: BLOOD SPECIMENOrdering Facility: [facility] Address: [address] [place] [address] Performed By: #### 5 8410-2 ####ED[facility] LABORATORYCLIA [id number] [place] [id number] [place] Platelets (Bld) [#/Vol] 436 10*3/uL High 150-400 [facility] Comment on above: Order Comment: Speci men Type: BLOOD SPECIMENOrdering Facility: [facility] Address: [address] [place] [address] Performed By: #### 5 8410-2 ####EDEN LABORATORYCLIA [id number] [place] [address] [place] RBC (Bld) [#/Vol] 3.34 10*6/uL Low 3.90-5.20 [facility] Comment on above: Order Comment: Speci men Type: BLOOD SPECIMENOrdering Facility: [facility] Address: [address] [place] [address] Performed By: #### 5 8410-2 ####EDEN LABORATORYCLIA [id number] [place] [id number] [place] WBC (Bld) [#/Vol] 23.47 10*3/uL High 3.70-11.00 [facility] Comment on above: Order Comment: Speci men Type: BLOOD SPECIMENOrdering Facility: [facility] Address: [address] [place] [address] Performed By: #### 5 8410-2 ####EDEN LABORATORYCLIA [id number] [place] [id number] [facility] [place] MISMATCH REPAIR PROTEINS BY IHCon 01-03-2024 AP BIOMARKER DISCLAIMER Normal [facility] Comment on above: Order Comment: Speci men Type: TISSUE SPECIMENOrdering Facility: [facility] Address: [address] [place] [address] Result Comment: Vero voss Developed Test (LDT) Disclaimer:Performance characteristics of immunohistochemical, immunofluorescent and chromogenic in-situ hybridization tests have been determined by the performing laboratory within [facility]???s [facility] Laboratory Medicine Department ([facility], [facility], [facility], [facility], [facility], [facility], or [facility]) in a manner consistent with CLIA requirements. One or more of these tests have not been cleared or approved by the FDA. [facility] is regulated under CLIA as qualified to perform high-complexity testing. These tests are used for clinical purposes. They should not be regarded as investigational or for research. Positive and negative controls stain appropriately. Performed By: #### S ####EDEN LABORATORYCLIA [id number] [place] [address] [place]#### [id number] ####[facility] LABCLIA [id number] [place] [address] [place] AP BLOCK ID B5 Normal [facility] Comment on above: Order Comment: Speci men Type: TISSUE SPECIMENOrdering Facility: [facility] Address: [address] [place] [address] Performed By: #### S ####EDEN LABORATORYCLIA [id number] [place] [address] [place]#### [id number] ####[facility] LABCLIA [id number] [address] [place] BIOMARKER INTERPRETATION COMMENT AND REFERENCE RANGE [facility] Comment on above: Order Comment: Speci men Type: TISSUE SPECIMENOrdering Facility: [facility] Address: [address] [place] [address] Result Comment: Inta ct expression of MMR (mismatch repair) proteins by immunohistochemistry is highly correlated with a microsatellite stable result by MSI (microsatellite instability) PCR analysis, and the results from these tests are viewed as clinically equivalent by the FDA. This result excludes at least 90-95% of Yang syndrome. These tests are an imperfect screen because some mutations may not produce loss of immunohistochemical expression. MSI molecular testing can be performed upon request in cases with a high clinical suspicion and appropriate family history.In a phase 2 study of patients with metastatic carcinoma, Evy et al. ([facility] 2015;372:5702-) reported that clinical benefit of pembrolizumab, an anti-programmed 1 (PD-1) immune checkpoint inhibitor, was predicted by the tumor's mismatch repair status; mismatch repair deficient (dMMR) tumors are more responsive to PD-1 blockade than mismatch repair proficient tumors.Pembrolizumab is FDA-approved for treating adult and pediatric patients with unresectable or metastatic solid tumors that display microsatellite instability-high (MSI-H) by PCR assay or dMMR by immunohistochemistry (IHC). The FDA does not distinguish between PCR and IHC-based assays, as these are considered equivalent and complimentary tests.As clinically indicated, and in the appropriate setting of genetic counseling with informed patient consent, further genetic testing may be helpful. For more information or questions about this result, please call the [facility] at [phone]. Performed By: #### S ####[facility]ORATORYCLIA [id number] [place] [address] [place]#### [id number] ####[facility] LABCLIA [id number] [place] [address] [place] BIOMARKER METHOD Normal [facility] Comment on above: Order Comment: Speci men Type: TISSUE SPECIMENOrdering Facility: [facility] Address: [address] [place] [address] Performed By: #### S ####[facility] LABORATORYCLIA [id number] [place] [address] [place]#### [id number] ####[facility] LABCLIA [id number] [place] [address] [place] [facility] CASE NUMBER MMR [id number] [facility] Comment on above: Order Comment: Speci men Type: TISSUE SPECIMENOrdering Facility: [facility] Address: [address] [place] [address] Performed By: #### S ####[facility] LABORATORYCLIA [id number] [place] [id number] [place]#### [id number] ####[facility] LABCLIA [id number] [place] [address] [place] FINAL PERFORMING LAB Normal [facility] Comment on above: Order Comment: Speci men Type: TISSUE SPECIMENOrdering Facility: [facility] Address: [address] [place] [address] Result Comment: Diag nostic interpretation performed at: [facility], [address] [place] [address] CLIA# [id number] Director: Marky Christian MDElectronically signed out by: RADHA VILLALPANDO MD, PhD Performed By: #### S ####[facility] LABORATORYCLIA [id number] [place] [address] [place]#### [id number] ####[facility] LABCLIA [id number] [place] [address] [place] FIXATIVE Formalin, 10% Neutra l Buffered Normal [facility] Comment on above: Order Comment: Speci men Type: TISSUE SPECIMENOrdering Facility: [facility] Address: [address] [place] [address] Performed By: #### S ####[facility] LABORATORYCLIA [id number] [place] [address] [place]#### [id number] ####[facility] LABCLIA [id number] [place] [address] [place] MLH1 IMMUNOHISTOCHEMICAL RESULTS Normal/Intact Nuclear Expression Normal [facility] Comment on above: Order Comment: Speci men Type: TISSUE SPECIMENOrdering Facility: [facility] Address: [address] [place] [address] Performed By: #### S ####[facility] LABORATORYCLIA [id number] [place] [address] [place]#### [id number] ####[facility] LABCLIA [id number] [place] [address] [place] MLH1 PROMOTER METHYLATION ASSAY No Normal [facility] Comment on above: Order Comment: Speci men Type: TISSUE SPECIMENOrdering Facility: [facility] Address: [address] [place] [address] Performed By: #### S ####[facility] LABORATORYCLIA [id number] [place] [address] [place]#### [id number] ####[facility] LABCLIA [id number] [place] [address] [place] MMR INTERPRETATION Proficient (Microsat ellite Stable) Normal [facility] Comment on above: Order Comment: Speci men Type: TISSUE SPECIMENOrdering Facility: [facility] Address: [address] [place] [address] Performed By: #### S ####[facility]ENTER[facility] [id number] [place] [address] [place]#### [id number] ####[facility] LABCLIA [id number] [place] [address] [place] MSH2 IMMUNOHISTOCHEMICAL RESULTS Normal/Intact Nuclear Expression Normal [facility] Comment on above: Order Comment: Speci men Type: TISSUE SPECIMENOrdering Facility: [facility] Address: [address] [place] [address] Performed By: #### S ####[facility] LABORATORYCLIA [id number] [place] [address] [place]#### [id number] ####[facility] LABCLIA [id number] [place] [address] [place] MSH6 IMMUNOHISTOCHEMICAL RESULTS Normal/Intact Nuclear Expression Normal [facility] Comment on above: Order Comment: Speci men Type: TISSUE SPECIMENOrdering Facility: [facility] Address: [address] [place] [address] Performed By: #### S ####[facility] LABORATORYCLIA [id number] [place] [address] [place]#### [id number] ####[facility] LABCLIA [id number] [place] [address] [place] PMS2 IMMUNOHISTOCHEMICAL RESULTS Normal/Intact Nuclear Expression [facility] Comment on above: Order Comment: Speci men Type: TISSUE SPECIMENOrdering Facility: [facility] Address: [address] [place] [address] Performed By: #### S ####[facility] LABORATORYCLIA [id number] [place] [address] [place]#### [id number] ####[facility] LABCLIA [id number] [place] [address] [place] TUMOR TYPE MMR Primary Colorectal Adenocarcinoma [facility] Comment on above: Order Comment: Speci men Type: TISSUE SPECIMENOrdering Facility: [facility] Address: [address] [place] [address] Performed By: #### S ####[facility] LABORATORYCLIA [id number] [place] [address] [place]#### [id number] ####[facility] LABCLIA [id number] [place] [address] [place] NURSING PROGon 01-03-2024 NURSING PROG [facility] OPERATIVE NOon 01-03-2024 OPERATIVE NO [facility] SURGICAL PATHOLOGYon 024 BLOCK FOR ADDITIONAL BIOMARKERS/MOLECULAR STUDIES B5 [facility] Comment on above: Order Comment: Speci men Type: TISSUE SPECIMENOrdering Facility: [facility] Address: [address] [place] [address] Performed By: #### S ####[facility]IM LABORATORYCLIA [id number] [place] [address] [place]#### [id number] ####[facility] LABCLIA [id number] [place] [address] [place] CASE REPORT Normal [facility] Comment on above: Order Comment: Speci men Type: TISSUE SPECIMENOrdering Facility: [facility] Address: [address] [place] [address] Result Comment: Surg ical Pathology Report Case: [id number] Provider: Tessa Spring MD Collected: 01/03/2024 01:42 PMOrdering Location: [facility] Received: 01/03/2024 04:12 PM Operating RoomPathologist: Jimbo Mesa MDSpecimens: A) - Appendix, Appendectomy B) - Colon, Resection, ileocecectomy Performed By: #### S ####[facility] LABORATORYCLIA [id number] [place] [address] [place]#### [id number] ####[facility] LABCLIA [id number] [place] [address] [place] CLINICAL HISTORY Normal [facility] Comment on above: Order Comment: Speci men Type: TISSUE SPECIMENOrdering Facility: [facility] Address: [address] [place] [address] Result Comment: Pre- op diagnosis:Perforated appendix [K35.32] Performed By: #### S ####[facility] LABORATORYCLIA [id number] [place] [address] [place]#### [id number] ####[facility] LABCLIA [id number] [place] [address] [place] DIAGNOSIS COMMENT Normal [facility] Comment on above: Order Comment: Speci men Type: TISSUE SPECIMENOrdering Facility: [facility] Address: [address] [place] [address] Result Comment: A. 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 Sana MelaraCherelle Spring was notified of these findings via e-mail on 01/09/2024.Laboratory Developed Test (LDT) Disclaimer:Performance characteristics of immunohistochemical, immunofluorescent and chromogenic in-situ hybridization tests have been determined by the performing laboratory within [facility]???s [facility] Pathology and Laboratory Medicine Department ([facility], [facility], [facility], [facility], [facility], [facility], or [facility]) in a manner consistent with CLIA requirements. One or more of these tests have not been cleared or approved by the FDA. [facility] is regulated under CLIA as qualified to perform high-complexity testing. These tests are used for clinical purposes. They should not be regarded as investigational or for research. Positive and negative controls stain appropriately. Performed By: #### S ####[facility] LABORATORYCLIA [id number] [place] [address] [place]#### [id number] ####[facility] LABCLIA [id number] [address] FINAL DIAGNOSIS Normal [facility] Comment on above: Order Comment: Speci men Type: TISSUE SPECIMENOrdering Facility: [facility] Address: [address] [place] [address] Result Comment: A. A ppendix, excision:- Invasive adenocarcinoma involving appendix (see comment).- Acute 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 with serositis.- Fallopian tube with patchy acute and chronic inflammation and fibrous adhesions.B. Terminal ileum and cecum, ileocecectomy:- Invasive moderately differentiated adenocarcinoma arising in the cecum at the appendiceal orifice, with associated pericolonic abscess and direct invasion into adherent terminal ileum (see comment and synoptic report).- Twenty-two lymph nodes, negative for malignancy (0/22).JEKev 01/08/2024 Performed By: #### S ####[facility] LABORATORYCLIA [id number] [place] [address] [place]#### [id number] ####[facility] LABCLIA [id number] [place] [address] [place] FINAL PERFORMING LAB Normal [facility] Comment on above: Order Comment: Speci men Type: TISSUE SPECIMENOrdering Facility: [facility] Address: [address] [place] [address] Result Comment: Diag nostic interpretation performed at [facility], [address] [place] [id number] CLIA# [id number] Director: Sana Freeman M.D. Performed By: #### S ####[facility] LABORATORYCLIA [id number] [place] [address] [place]#### [id number] ####[facility] LABCLIA [id number] [address] [place] GROSS DESCRIPTION Normal [facility] Comment on above: Order Comment: Speci men Type: TISSUE SPECIMENOrdering Facility: [facility] Address: [address] [place] [address] Result Comment: A. A ppendix, AppendectomyReceived in formalin designated appendix is an intact appendix that measures 3.3 cm in length and 0.6 cm in diameter. The serosal surface is dominguez-kennedy and granular. Sectioning through the appendix reveals dominguez appendiceal mucosa with a wall thickness of 0.1 cm. A fecalith is not identified. Also within the container is a fallopian tube that measures 4.6 cm in length and 0.6 cm in diameter. The outer surface is dominguez-kennedy and granular. Sectioning through the tube reveals a patent lumen. Certified Nurse Operating Room sections are submitted as follows: A1 tip bisected and proximal shave margin, A2 remaining appendix, A3 fallopian tube with entire fimbriated end.WE January 04, 2024 12:14 PMGross examination performed at [facility], [address] [place] [id number] remaining fallopian tube is submitted in cassettes A4-A5.WE January 08, 2024 2:07 PMGross examination performed at [facility], [address] [place], [place] [address]V. Colon, ResectionReceived in formalin designated ileocecectomy is an ileocecectomy specimen that consists of small bowel (9 cm in length and 3 cm in circumference) and large bowel (11 cm in length and 6 cm in circumference). The appendix is not present. The serosal surface is dominguez-kennedy with a markedly ragged area of irregularity that measures 4 x 3.5 cm. This area of irregularity is located at the previous site of the appendix. Within this area of irregularity are multiple dominguez exophytic nodules that range in size from 0.1 to 0.7 cm in greatest dimension. This area of irregularity is located 0.9 cm from the mesenteric margin. The bowel is opened to reveal a pink-dominguez granular area of ulceration that measures 4.5 x 2 x 0.6 cm. This area of ulceration is located at the distal aspect of the small bowel, abutting the ileocecal valve, 6 cm from the proximal margin, 7 cm from the distal margin, 2 cm from the mesenteric margin, and 0.4 cm from the circumferential (radial) margin. At the appendiceal orifice, there is a red-brown exophytic lesion that measures 1.7 x 1.4 x 0.6 cm. The lesion is located 7.5 cm from the distal margin, 10.5 cm from the proximal margin, 3 cm from the mesenteric margin, and 0.3 cm from the circumferential (radial) margin. Sectioning through the lesion at the appendiceal orifice reveals that it extends beyond the muscularis propria and into adherent distal terminal ileum. The overall dimensions of the mass involving the cecum and terminal ileum are 6.2 x 4 x 3.5 cm. This extension corresponds with the area of ulceration within the small bowel. The remaining large bowel mucosa is unremarkable, showing normal mucosal folds with a wall thickness of 0.5 cm. The small bowel does not lie flat. The remaining small bowel mucosa is pink-dominguez and flattened with a wall thickness of 1 cm. Certified Nurse Operating Room sections are submitted as follows: B1 proximal margin perpendicular (inked orange) and distal margin perpendicular (inked blue), B2 lesion at appendiceal orifice with deepest extension and circumferential (radial) margin perpendicular (inked black), B3 lesion at appendiceal orifice, B4-B5 lesion at appendiceal orifice with extension to small bowel, B6 mesenteric margin perpendicular (inked black), B7 ileocecal valve, B8 area of ulceration within small bowel, B9 single bisected lymph node, B10 single bisected lymph node, B11 single bisected lymph node, B12 four intact lymph nodes, B13 four intact lymph nodes, B14 four intact lymph nodes, B15 four intact lymph nodes.WE January 04, 2024 11:11 AMGross examination performed at [facility], [address] [place] [address] Performed By: #### S ####[facility] LABORATORYCLIA [id number] [place] [id number] [place]#### [id number] ####[facility] LABCLIA [id number] [facility] [id number] [place], [place] [id number] [place] [facility] SYNOPTIC REPORT Normal [facility] Comment on above: Order Comment: Speci men Type: TISSUE SPECIMENOrdering Facility: [facility] Address: [address] [place] [address] Result Comment: COLO N AND RECTUM: ResectionCOLON AND RECTUM: RESECTION - All [id number] Edition - Protocol posted: 09/13/2023SPECIMEN Procedure: IleocecectomyTUMOR Tumor Site: Cecum Histologic Type: Adenocarcinoma Histologic Grade: G2, moderately differentiated Tumor Size: Greatest dimension (Centimeters): 6.2 cm Tumor Extent: Directly invades or adheres to adjacent structure(s): Terminal ileum Macroscopic Tumor Perforation: Not identified Lymphatic and / or Vascular Invasion: Present Perineural Invasion: Not identified Tumor Budding Score: Low (0-4) Treatment Effect: No known presurgical therapyMARGINS Margin Status for Invasive Carcinoma: All margins negative for invasive carcinoma Margin Status for Non-Invasive Tumor: All margins negative for high-grade dysplasia / intramucosal carcinoma and low-grade dysplasiaREGIONAL LYMPH NODES Regional Lymph Node Status: : All regional lymph nodes negative for tumor Number of Lymph Nodes Examined: 22 Tumor Deposits: Not identifiedpTNM CLASSIFICATION (AJCC 8th Edition) Reporting of pT, pN, and (when applicable) pM categories is based on information available to the pathologist at the time the report is issued. As per the AJCC (Chapter 1, 8th Ed.) it is the managing physician's responsibility to establish the final pathologic stage based upon all pertinent information, including but potentially not limited to this pathology report. pT Category: pT4b pN Category: pN0 Performed By: #### S ####[facility] LABORATORYCLIA [id number] [address]#### [id number] ####[facility] LABCLIA [id number] [facility]ENTERMichelle [place] [id number] [facility] HISTORY PHYSICALon HISTORY PHYSICAL HNO ID: [id number] Author: LISBETH ALFORD PA-C Service: ? Author Type: Physician Outpatient Receptionist Type: H&P Filed: 12/28/2023 10:49 Note Text: HISTORY AND PHYSICAL EXAMINATION SERVICE DATE: 12/28/2023 SERVICE TIME: 10:48 AM PRIMARY CARE PHYSICIAN: Mary Moss CNP, BALL THREAD MACHINE TENDER REASON FOR VISIT: Lakesha Koch is a 63 year old female who is scheduled for Procedure(s): LAPAROSCOPY DIAGNOSTIC ABDOMEN, PERITONEUM AND OMENTUM (N/A) LAPAROSCOPIC APPENDECTOMY ADULT (N/A) LAPAROSCOPIC ENTEROTOMY FOR EXPLORATION OF SMALL BOWEL (N/A) at the request of Dr. Tessa Spring for consultation. My final recommendation will be communicated back to the requesting physician by way of shared medical record or letter. Subjective The patient has the following: ACTIVE PROBLEM LIST Iron Deficiency Anemia Anorexia Anxiety and Depression Severe Protein-Calorie Malnutrition (Hcc) Focal Epilepsy (Hcc) Seizures (Hcc) Gait Abnormality Muscular Deconditioning Failure to Thrive in Adult At Risk for Delirium Inflammation of Colonic Mucosa Bowel Wall Thickening Feeding Difficulties COVID-19 Immunization Status Overdue - Covid-19 Vaccine () Overdue since 11/26/2023 04/26/2022 Imm Admin: COVID-19 vaccine, age 12+ yr, bivalent (PFIZER-BIONTECH) 03/01/2021 Imm Admin: COVID-19 original vaccine, age 12+ yr, monovalent (PFIZER-BIONTECH - PURPLE TOP) 07/01/2020 Imm Admin: COVID-19 original vaccine, age 12+ yr, monovalent (PFIZER-BIONTECH - PURPLE TOP) Only the first 3 history entries have been loaded, but more history exists. CHIEF COMPLAINT: Pre-Op HPI: Lakesha Koch is a 63 year old female presenting for pre-anesthesia consultation. Pt has history of perforated appendix. Above procedure recommended to manage symptoms. Procedure scheduled on 01/03/2024 at [facility]. REVIEW OF SYSTEMS: General: No weight loss, malaise or fevers. Neurological: Positive for: seizures (no LOC with seizures - last in may). Negative for: headaches, multiple sclerosis, Parkinson's disease and strokes. Respiratory: Negative for: asthma, COPD, current cough, dyspnea, tobacco use, URI < 2 weeks and obstructive sleep apnea. Cardiovascular: Negative for: AICD/PPM, anticoagulation therapy, arrhythmia, CAD, chest pain, CHF, DVT/PE, hyperlipidemia, hypertension, recent MS, murmur/valvular heart disease, open heart surgery and valve surgery. GI: Positive for: abdominal pain Negative for: dysphagia, GERD, liver disease, nausea and vomiting. : Negative for: on dialysis, dysuria, hematuria and renal failure. Endocrine: Negative for: diabetes mellitus, hyperthyroidism and hypothyroidism. Hematology: Positive for: anemia. Negative for: bruises/bleeds easily, factor V Leiden, hemophilia, thrombocytopenia, von Willebrand disease and chronic anti-coagulation/platelet meds. Oncology: No history of CA metastasis, chemo within 30 days, or radiotherapy within 90 days. No history of oncological symptoms or problems. Psych: Positive for: anxiety and depression. Negative for: bipolar disorder. Musculoskeletal: Negative for joint pain or swelling, back pain or muscle pain. Skin: Negative for lesions, rash and itching. PAST MEDICAL HISTORY Diagnosis Date Anemia Anorexia nervosa Bowel wall thickening Daily consumption of alcohol Depression Essential tremor Failure to thrive in adult Feeding difficulties Focal epilepsy (HCC) Gait abnormality Inflammation of colonic mucosa Intestinal obstruction (HCC) Migraine Migraine without aura 05/03/2019 Muscular deconditioning Perforated 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 with localized peritonitis, gangrene and abscess Psoas abscess, right (HCC) Seizures (HCC) Severe protein-calorie malnutrition (HCC) PAST SURGICAL HISTORY Procedure Laterality Date EXPLORATORY OF ABDOMEN 09/19/2023 ROCIO DRAIN TO BULB SUCTION 09/01/2023 for acute 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 with perforation, localized peritonitis, and gangrene. FAMILY HISTORY Problem Relation Age of Onset Prostate Cancer Father Melanoma Sister Anesthesia Problems No Family History Social History Tobacco Use Smoking status: Former Current packs/day: 0.00 Average packs/day: 1 pack/day for 11.0 years (11.0 ttl pk-yrs) Types: Cigarettes Start date: 1984 Quit date: 1995 Years since quittin.7 Passive exposure: Past Smokeless tobacco: Never Vaping Use Vaping status: Never Used Substance Use Topics Alcohol use: Not Currently Comment: sober, quit 3 years ago Drug use: Not Currently Types: Marijuana Comment: unknown Prior to Admission medications as of 12/28/23 0920 Medication Sig Last Dose Taking busPIRone (BUSPAR) 7.5 mg tablet Taking Yes alendronate (FOSAMAX) 70 mg tablet Taking Yes sertraline (ZOLOFT) 50 mg tablet Taking Yes divalproex ER (DEPAKOTE ER) 250 mg 24 hr tablet Take 2 tablets by mouth two times a day. Taking Yes amoxicillin-clavulanate potassium (A (more content not included)... [facility] TYPE AND SCREEN,30 DAYon ABO B [facility] Comment on above: Order Comment: Speci men Type: BLOOD SPECIMEN [facility] Address: [address] [place] [address] Performed By: #### T SCR30 #### [facility] CLIA [id number] [address] [place] Rh Nom (Bld) Positive [facility] Comment on above: Order Comment: Speci [facility] Type: BLOOD SPECIMEN [facility] Address: [address] [place] [address] Performed By: #### T SCR30 #### [facility] CLIA [id number] [address] [place] ABO group Nom (Bld) B [facility] Blood group antibody screen Ql Negative [facility] Rh Nom (Bld) Positive [facility] CNPNon 12-27-2023 CNPN [facility] REVERSE T3on 12-23-2023 T3.reverse [Mass/Vol] 13.2 ng/dL 9.0 - 27.0 ng/dL [facility] Comment on above: INTERPRETIVE INFORMA TION: Triiodothyronine, Reverse - LC-MS/MS This test was developed and its performance characteristics determined by [employer]. It has not been cleared or approved by the [place] Food and Drug Administration. This test was performed in a CLIA certified laboratory and is intended for clinical purposes. Performed By: [employer] [address] [place] [id number] [employer] Clerk: Chriss Courtney MD, PhD CLIA Number: [id number] T3.reverse [Mass/Vol]on 11-26 [facility] Free T3 [Mass/Vol]on 024 Interpretation and review of laboratory results Abnormal [facility] No Panel Informationon 12-19 Interpretation and review of laboratory results Normal [facility] T3, FREEon 12-20-2023 Free T3 [Mass/Vol] 2.2 pg/mL Low 2.3 - 4.1 pg/mL [facility] T4 FREE/FREE THYROXINEon Free T4 [Mass/Vol] 1.0 ng/dL 0.9 - 1.7 ng/dL [facility] THYROID STIMULATING HORMONEo n 12-20-2023 TSH Qn 1.540 m[IU]/L [facility] CBC panel Auto (Bld)on 12-18 Erythrocyte distribution width (RBC) [Ratio] 13.5 % Normal 11.5-15.0 [facility] Comment on above: Order Comment: Speci men Type: BLOOD SPECIMENOrdering Facility: [facility] Address: [address] [place] [address] Performed By: #### 5 8410-2 ####[facility] [id number] [place] [address] [place] Hematocrit (Bld) [Volume fraction] 35.0 % Low 36.0-46.0 [facility] Comment on above: Order Comment: Speci men Type: BLOOD SPECIMENOrdering Facility: [facility] Address: [address] [place], [place] [address] Performed By: #### 5 8410-2 ####[facility] [id number] [place] [address] [place] Hemoglobin (Bld) [Mass/Vol] 11.1 g/dL Low 11.5-15.5 [facility] Comment on above: Order Comment: Speci men Type: BLOOD SPECIMENOrdering Facility: [facility] Address: [address] [place] [address] Performed By: #### 5 8410-2 ####[facility] BISHNUCRUZITO [id number] [place] [address] [place] MCH (RBC) [Entitic mass] 28.5 pg Normal 26.0-34.0 [facility] Comment on above: Order Comment: Speci men Type: BLOOD SPECIMENOrdering Facility: [facility] Address: [address] [place] [address] Performed By: #### 5 8410-2 ####[facility] [id number] [address] [place] MCHC (RBC) [Mass/Vol] 31.7 g/dL Normal 30.5-36.0 [facility] Comment on above: Order Comment: Speci men Type: BLOOD SPECIMENOrdering Facility: [facility] Address: [address] [place] [address] Performed By: #### 5 8410-2 ####[facility]ITALKALIEHUNTSMAN [facility] [id number] [address] [place] MCV (RBC) [Entitic vol] 90.0 fL Normal 80.0-100.0 [facility] Comment on above: Order Comment: Speci men Type: BLOOD SPECIMENOrdering Facility: [facility] Address: [address] [place] [address] Performed By: #### 5 8410-2 ####[facility] [id number] [place] [address] [place] Nucleated RBC (Bld) [#/Vol] 10*3/uL Normal <0.01 [facility] Comment on above: Order Comment: Speci men Type: BLOOD SPECIMENOrdering Facility: [facility] Address: [address] [place] [address] Performed By: #### 5 8410-2 ####[facility] MILLJUSTINWNCLIA [id number] [place] [address] [place] Platelet mean volume (Bld) [Entitic vol] 9.7 fL Normal 9.0-12.7 [facility] Comment on above: Order Comment: Speci men Type: BLOOD SPECIMENOrdering Facility: [facility] Address: [address] [place] [address] Performed By: #### 5 8410-2 ####[facility]ITALNCLIA [id number] [place] [address] [place] Platelets (Bld) [#/Vol] 329 10*3/uL Normal 150-400 [facility] Comment on above: Order Comment: Speci men Type: BLOOD SPECIMENOrdering Facility: [facility] Address: [address] [place] [address] Performed By: #### 5 8410-2 ####[facility]ITALNCLIA [id number] [place] [address] [place] RBC (Bld) [#/Vol] 3.89 10*6/uL Low 3.90-5.20 [facility] Comment on above: Order Comment: Speci men Type: BLOOD SPECIMENOrdering Facility: [facility] Address: [address] [place] [address] Performed By: #### 5 8410-2 ####[facility]ITALNCLIA [id number] [place] [address] [place] WBC (Bld) [#/Vol] 8.07 10*3/uL Normal 3.70-11.00 [facility] Comment on above: Order Comment: Speci men Type: BLOOD SPECIMENOrdering Facility: [facility] Address: [address] [place] [address] Performed By: #### 5 8410-2 ####[facility]ITALNCLIA [id number] [place] [address] [place] Comprehensive metabolic 2000 panelon 12-19-2023 Albumin [Mass/Vol] 3.9 g/dL Normal 3.9-4.9 [facility] Comment on above: Order Comment: Speci men Type: BLOOD SPECIMENOrdering Facility: [facility] Address: [address] [place] [address] Performed By: #### 2 4323-8 ####[facility] GORDAWSDLIA [id number] [place] [address] [place] ALP [Catalytic activity/Vol] 65 U/L Normal 34-123 [facility] Comment on above: Order Comment: Speci men Type: BLOOD SPECIMENOrdering Facility: [facility] Address: [address] [place] [address] Performed By: #### 2 4323-8 ####[facility] CENTERLIA [id number] [place] [address] [place] ALT [Catalytic activity/Vol] U/L Low 7-38 [facility] Comment on above: Order Comment: Speci men Type: BLOOD SPECIMENOrdering Facility: [facility] Address: [address] [place] [address] Performed By: #### 2 4323-8 ####[facility] CENTERLIA [id number] [place] [address] [place] Anion gap [Moles/Vol] 15 mmol/L Normal 8-15 [facility] Comment on above: Order Comment: Speci men Type: BLOOD SPECIMENOrdering Facility: [facility] Address: [address] [place] [address] Performed By: #### 2 4323-8 ####[facility] PUNTA GORDAWNCLIA [id number] [place] [address] [place] AST [Catalytic activity/Vol] 9 U/L Low 13-35 [facility] Comment on above: Order Comment: Speci men Type: BLOOD SPECIMENOrdering Facility: [facility] Address: [address] [place] [address] Performed By: #### 2 4323-8 ####[facility] GILBERTLIA [id number] [place] [address] [place] Bilirubin [Mass/Vol] mg/dL Low 0.2-1.3 [facility] Comment on above: Order Comment: Speci men Type: BLOOD SPECIMENOrdering Facility: [facility] Address: [address] [place] [address] Performed By: #### 2 4323-8 ####[facility]ITALKALIELIA [id number] [place] [address] [place] Calcium [Mass/Vol] 9.5 mg/dL Normal 8.5-10.2 [facility] Comment on above: Order Comment: Speci men Type: BLOOD SPECIMENOrdering Facility: [facility] Address: [address] [place] [address] Performed By: #### 2 4323-8 ####[facility]ITALKALIELIA [id number] [place] [address] [place] Chloride [Moles/Vol] 103 mmol/L Normal 98-107 [facility] Comment on above: Order Comment: Speci men Type: BLOOD SPECIMENOrdering Facility: [facility] Address: [address] [place] [address] Performed By: #### 2 4323-8 ####[facility]ITALNCLIA [id number] [place] [address] [place] CO2 [Moles/Vol] 20 mmol/L Low 22-30 [facility] Comment on above: Order Comment: Speci men Type: BLOOD SPECIMENOrdering Facility: [facility] Address: [address] [place] [address] Performed By: #### 2 4323-8 ####[facility]ITALNCLI [id number] [place] [address] [place] Creatinine [Mass/Vol] 0.92 mg/dL Normal 0.58-0.96 [facility] Comment on above: Order Comment: Speci men Type: BLOOD SPECIMENOrdering Facility: [facility] Address: [address] [place] [address] Performed By: #### 2 4323-8 ####[facility] [id number] [place] [address] [place] Creatinine and Glomerular filtration rate.predicted panel (S/P/Bld) 70 mL/min/1.73m??? Normal >=60 [facility] Comment on above: Order Comment: [facility] Type: BLOOD SPECIMENOrdering Facility: [facility] Address: [address] [place] [address] Result Comment: Sana mated Glomerular Filtration Rate (eGFR) is calculated using the 2020 CKD-EPI creatinine equation. This equation utilizes serum creatinine, sex, and age as parameters. The creatinine assay has traceable calibration to isotope dilution-mass spectrometry. Refer to KDIGO guidelines for clinical interpretation. In patients with unstable renal function, e.g. those with acute kidney injury, the eGFR may not accurately reflect actual GFR. Performed By: #### 2 4323-8 ####[facility]ITALNCLI [id number] [place] [address] [place] Glucose [Mass/Vol] 98 mg/dL Normal 74-99 [facility] Comment on above: Order Comment: Speci men Type: BLOOD SPECIMENOrdering Facility: [facility] Address: [address] [place] [address] Result Comment: The [place] Diabetes Association (ADA) provides guidance for cutoff values for fasting glucose and random glucose. The ADA defines fasting as no caloric intake for at least 8 hours. Fasting plasma glucose results between 100 to 125 mg/dL indicate increased risk for diabetes (prediabetes).Fasting plasma glucose results greater than or equal to 126 mg/dL meet the criteria for diagnosis of diabetes. In the absence of unequivocal hyperglycemia, results should be confirmed by repeat testing. In a patient with classic symptoms of hyperglycemia or hyperglycemic crisis, random plasma glucose results greater than or equal to 200 mg/dL meet the criteria for diagnosis of diabetes.Reference: Standards of Medical Care in Diabetes 2016, [place] [employer] Association. Diabetes Care. 2016.39(Suppl 1). Performed By: #### 2 4323-8 ####[facility] MILLTOWNCLIA [id number] [place] [address] [place] Potassium [Moles/Vol] 4.3 mmol/L Normal 3.7-5.1 [facility] Comment on above: Order Comment: Speci men Type: BLOOD SPECIMENOrdering Facility: [facility] Address: [address] [place] [address] Performed By: #### 2 4323-8 ####[facility] GORDAWSDLIA [id number] [place] [address] [place] Protein [Mass/Vol] 7.7 g/dL Normal 6.3-8.0 [facility] Comment on above: Order Comment: Speci men Type: BLOOD SPECIMENOrdering Facility: [facility] Address: [address] [place] [address] Performed By: #### 2 4323-8 ####[facility] CENTERLIA [id number] [place] [address] [place] Sodium [Moles/Vol] 138 mmol/L Normal 136-144 [facility] Comment on above: Order Comment: Speci men Type: BLOOD SPECIMENOrdering Facility: [facility] Address: [address] [place] [address] Performed By: #### 2 4323-8 ####[facility] GORDAWNCLIA [id number] [place] [address] [place] Urea nitrogen [Mass/Vol] 31 mg/dL High 7-21 [facility] Comment on above: Order Comment: Speci men Type: BLOOD SPECIMENOrdering Facility: [facility] Address: [address] [place] [address] Performed By: #### 2 4323-8 ####[facility] TRIHEALTHNCLIA [id number] [place] [address] [place] Prealb SerPl-mCncon 12-19-19 24 Prealbumin [Mass/Vol] 20 mg/dL Normal 17-36 [facility] Comment on above: Order Comment: Speci men Type: BLOOD SPECIMENOrdering Facility: [facility] Address: [address] [place] [address] Performed By: #### 3 016-3, 3051-0, 3024-7, 32257-8 ####[facility] LABCLIA [id number] [place] [address] [place] REVERSE T3on 12-19-2023 REVERSE T3 13.2 ng/dL Normal 9.0-27.0 [facility] Comment on above: Order Comment: Speci men Type: BLOOD SPECIMENOrdering Facility: [facility] Address: [address] [place] [address] Result Comment: INTE RPRETIVE INFORMATION: Triiodothyronine, Reverse - LC-MS/MSThis test was developed and its performance characteristicsdetermined by [employer]. It has not been cleared orapproved by the [place] Food and Drug Administration. This test wasperformed in a CLIA certified laboratory and is intended forclinical purposes.Performed By: [employer] [place], [place] [address]Lrdncoglir Director: Chriss Courtney MD, PhDCLIA Number: [id number] Performed By: #### T 3REV ####[facility] [id number] [place] [address] T3Free SerPl-mCncon 12-19-19 24 Free T3 [Mass/Vol] 2.2 pg/mL Low 2.3-4.1 [facility] Comment on above: Order Comment: Speci men Type: BLOOD SPECIMENOrdering Facility: [facility] Address: [address] [place] [address] Performed By: #### 3 016-3, 3051-0, 3024-7, 40060-6 ####[facility] LABCLIA [id number] [place] [id number] [place] T4 Free SerPl-mCncon 024 Free T4 [Mass/Vol] 1.0 ng/dL Normal 0.9-1.7 [facility] Comment on above: Order Comment: Speci men Type: BLOOD SPECIMENOrdering Facility: [facility] Address: [address] [place] [address] Performed By: #### 3 016-3, 3051-0, 3024-7, 58556-9 ####[facility] LABCLIA [id number] [place] [address] [place] TSH SerPl-aCncon 12-19-2023 TSH Qn 1.540 m[IU]/L Normal 0.270-4.20 0 [facility] Comment on above: Order Comment: Speci men Type: BLOOD SPECIMENOrdering Facility: [facility] Address: [address] [place] [address] Performed By: #### 3 016-3, 3051-0, 3024-7, 34099-9 ####[facility] LABCLIA [id number] [place] [id number] [place] CNOVon 12-18-2023 CNOV Normal [facility] HISTORY PHYSICALon HISTORY PHYSICAL Normal [facility] Surgery Visit Reporton 12-14 Surgery Visit Report [facility] [address] [place] [address]. [address] [place] [address] OFFICE VISIT Date of Service: 12/15/23 MR#: [id number] Acct: [id number] Name: LAKESHA KOCH Rep #: [id number] : 1960 Provider: Dr. Cecily santiago MD Age/Sex: 63/F Location: [facility] Status: Signed Intake Vital Signs 10/18/23 08:38 12/15/23 10:18 Height 5 ft 4 in 5 ft 4 in Weight: 93 lb 6 oz BMI 16.0 BP 91/59 L Blood Pressure Location Rt brachial Position Sitting Respiration 17 Pulse 84 Pulse Source Monitor Pulse Oximetry (%) 90 Oxygen Delivery Method room air Intake Visit Reasons: DISCUSS SURGERY Chief Complaint: discuss surgery Allergies erythromycin base Allergy (Verified 12/15/23 10:19) TONGUE PEELS Medications ???Medication ???Instructions ???Recorded ???Confirmed ???Type clonazepam 0.25 mg disintegrating 0.25 mg PO PRN PRN Seizures 10/10/19 12/15/23 History tablet lacosamide 100 mg tablet 100 mg PO BID #60 tabs 08/25/23 12/15/23 Rx acetaminophen 500 mg capsule 1,000 mg PO QHS 10/18/23 12/15/23 History alendronate 70 mg tablet 70 mg PO QWEEK 10/18/23 12/15/23 History buspirone 7.5 mg tablet 7.5 mg PO BID 10/18/23 12/15/23 History calcium polycarbophil 625 mg 625 mg PO BID 10/18/23 12/15/23 History tablet (Fiber Laxative (calcium polycarbophil)) divalproex 500 mg tablet,extended 500 mg PO BID 10/18/23 12/15/23 History release 24 hr fluconazole 200 mg tablet 200 mg PO X1 #2 tabs 10/18/23 12/15/23 Rx (Diflucan) pantoprazole 40 mg tablet,delayed 40 mg PO DAILY 10/18/23 12/15/23 History release potassium chloride 20 mEq 20 meq PO DAILY 10/18/23 12/15/23 History tablet,extended release(part/cryst) sennosides 8.6 mg tablet (senna) 8.6 mg PO BID 10/18/23 12/15/23 History sertraline 50 mg tablet 50 mg PO DAILY 10/18/23 12/15/23 History amoxicillin 875 mg-potassium 1 tab PO BID #26 tabs 12/13/23 12/15/23 Rx clavulanate 125 mg tablet sulfamethoxazole 800 1 tab PO BID #26 tabs 12/13/23 12/15/23 Rx mg-trimethoprim 160 mg tablet (Bactrim DS) PFSH Medical History Hypotension Marijuana abuse Alcohol dependence ETOH abuse IBS (irritable bowel syndrome) Anxiety Depression Seizure Seizure disorder Surgical History 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 Family History Sister Melanoma Father Prostate CA Social History household members: none housing: apartment Smoking Status: Former smoker alcohol intake: former year quit: 2020 substance use type: marijuana HPI HPI HPI: 63-year-old female presents for follow-up for repeat CAT scan due to previous perforated 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 and continued phlegmon in the right lower quadrant. Patient's repeat CAT scan does not show improvement of this area with thickening of the terminal ileum but contrast is passed through. Patient is accompanied by her friend and also has her 2 sisters on the phone as well. Patient has a second opinion scheduled next week at [facility] as well. Patient states she still has pain off and on. She is still taking 3 boost a day with 22 g of protein. ROS General General: Yes weight change; No appetite, fatigue, colon cancer, breast cancer or weakness HEENT HEENT: No difficulty swallowing, eye injury, eye surgery, swollen glands or hoarseness Endo Endocrine: No thyroid disease, diabetes mellitus, thyroid cancer, Hair loss, heat intolerance or cold intolerance Skin Skin: No rash or changing moles Musc Musculoskeletal: Yes arthritis; No back problems, rheumatoid arthritis, gout or joint pain Cardio Cardiovascular: No murmur, pacemaker, heart disease, atrial fibrillation, high blood pressure, heart attack, heart stent, palpitations, shortness of breat with exertion or chest pain Psych Psychiatric: No depression, anxiety or hearing voices Resp Respiratory: No shortness of breath, No sleep apnea, No cough, No COPD, No asthma, No emphysema and No wheezing Gastro Gastrointestinal: Yes abdominal pain, No nausea or vomiting, Yes diarrhea, No constipation, No blood in stool, No acid reflux, No hemorrhoids, No ulcers, No gallbladder problem and No black,tarry stools Lito Hematologic: No blood thinners, No blood disorders, No bleeding, No anemia and No blood clots Neuro Neurologic: No system reviewed and no additional complaints, except as documented, No as per HPI, No abnormal gait, No abnormal hearing, No abnormal movements, No abnormal speech, No behavioral change s, No burning sensations, No confusion, No convulsions, No disequilibrium, No d (more content not included)... Normal [facility] Abdomen/Pelvis WITH Contrast on 12-11-2023 Abdomen/Pelvis WITH Contrast [facility] [address] [place] [address] Abdomen/Pelvis WITH Contrast MR#: [id number] Acct: [id number] Name: LAKESHA KOCH Rep #: [id number] : 1960 F 63 From: Harsh smith MD PCP: VEENA Handley, MECHANIC SENIOR-C Status: REG CLI Study: Abdomen/Pelvis WITH Contrast Date of Exam: Exam# [id number] Ordering Dr: Cecily Rudd MD [id number] STUDY: CT ABDOMEN AND PELVIS WITH CONTRAST REASON FOR EXAM: Female, 63 years old. Appendiceal abscess RADIATION DOSAGE (If Supplied By Facility): CTDIvol = ( 9.14 ) mGy, DLP = ( 235.77 ) mGycm TECHNIQUE: Oral and amp; IV Readi-CAT and amp; 75mL Isovue-370 was administered. Transaxial images were obtained from the dome of the diaphragm to the symphysis pubis in the portal venous phase. Multiplanar coronal and sagittal images were reformatted. Individualized Dose Optimization Techniques Were Used For This CT. COMPARISON: Prior studies dated: 11/22/2023 and 11/06/2023 FINDINGS: LOWER CHEST: Lung bases are clear. No cardiomegaly. Trace pericardial effusion. LIVER: The liver is normal in size, shape, and attenuation. No focal mass. GALLBLADDER AND BILIARY TREE: The gallbladder is normally distended. No gallstones. No gallbladder wall thickening or edema. No pericholecystic fluid. No intra- or extrahepatic biliary ductal dilation. PANCREAS: No focal cystic or solid mass. SPLEEN: Normal size without focal cystic or solid mass. ADRENAL GLANDS: No nodules. KIDNEYS AND URETERS: Normal renal size and position. No hydronephrosis or nephrolithiasis. Simple left renal cyst. No specific follow-up recommended. PERITONEUM: No free air. No significant ascites. BOWEL: The stomach is unremarkable. Normal caliber of the small bowel. Contrast passes throughout the small bowel and colon. There is prominent wall thickening at the terminal ileum and adjacent at the cecum. High density tissue/fluid seen posterior to the ileocecal junction with this area measuring approximately 3.6 x 2.6 x 2.8 cm. Compared to the most recent prior imaging from 11/22/2023, this area is increased in prominence. This measures significantly higher than simple fluid attenuation. Material tracks proximally along the psoas muscle. This was also present previously. LYMPH NODES: No enlarged mesenteric or retroperitoneal lymph nodes. VESSELS: The aorta is normal in caliber with mild atherosclerotic calcification. URINARY BLADDER: Unremarkable. REPRODUCTIVE ORGANS: Anteverted uterus. There is a soft tissue density seen posterior to the uterus which is unchanged from previous imaging. This measures 4.7 x 2.8 x 2.2 cm. ABDOMINAL WALL: No discrete abdominal or pelvic wall hernia. BONES: No lytic or blastic abnormality. Scoliotic curvature of the spine with mild degenerative change. CT/Abdomen/Pelvis WITH Contrast IMPRESSION: There is increased prominence of abnormal density adjacent to the ileocecal region. This measures significantly higher than fluid attenuation. This could be increased prominence of phlegmon. This is separate than the location of the original collection from previous imaging. Prominent wall thickening of the terminal ileum again noted. Contrast does pass through the small bowel and into the colon. Underlying mass could have this appearance, though the temporality of the finding argues more in favor for infectious process. Unchanged soft tissue density posterior to the uterus, possibly a fibroid. Electronically Signed: Harsh Ramirez MD at 23:44 EDT , CC: [facility] MIRTA Sánchez; Dr. Cecily Rudd MD Healthcare Translator: Signed Normal [facility] CREATININE FINGERSTICKon CREATININE WB < 1.0 Normal 0.55-1.02 [facility] Comment on above: Performed By: #### L 9100.0200 #### [facility] [address] [place], [address] EGFR WB > 60.0000 Normal >60 [facility] Comment on above: Performed By: #### L 9100.0200 #### [facility] [address] [place], [place], [address] CNPTOUTREACHon 12-04-2023 CNPTOUTREACH Normal [facility] Absolute lymphocyte countOrd ered By: CHRISTIE HYLTON on 01-25-2023 Lymphocytes Auto (Unsp spec) [#/Vol] 2.00 10*3/uL 0.83-4.51 [facility] Basophil percentageOrdered B y: CHRISTIE HYLTON on 01-25-2023 Basophils/100 WBC (Bld) 0.4 % 0-1 [facility] Eosinophils/100 WBC (Bld) 0.7 % 0-5 [facility] Neutrophils (Bld) [#/Vol] 7.9 10*3/uL 2.0-7.7 [facility] Neutrophils/100 WBC (Bld) 72.0 % 47-70 [facility] WBC (Bld) [#/Vol] 11.0 10*3/uL 4.4-11.0 [facility] Blood erythrocytes count (nu mber/volume)Ordered By: CHRISTIE HYLOTN on 01-25-2023 RBC (Bld) [#/Vol] 3.24 10*6/uL 4.2-5.4 [facility] Blood hemoglobin measurement (mass/volume)Ordered By: CHRISTIE HYLTON on 01-25-2023 Hemoglobin (Bld) [Mass/Vol] 9.6 g/dL 12.0-15.0 [facility] Blood lymphocytes/100 leukoc ytesOrdered By: CHRISTIE HYLTON on 01-25-2023 Lymphocytes/100 WBC (Bld) 18.2 % 19-41 [facility] Blood monocytes/100 leukocyt esOrdered By: CHRISTIE HYLTON on 01-25-2023 Monocytes/100 WBC (Bld) 8.2 % 0-10 [facility] Blood platelet mean volumeOr dered By: CHRISTIE HYLTON on 01-25-2023 Platelet mean volume (Bld) [Entitic vol] 9.5 fL 6.2-12.0 [facility] Determination of erythrocyte mean corpuscular volume (MCV)Ordered By: CHRISTIE HYLTON on 01-25-2023 MCV (RBC) [Entitic vol] 94.4 fL 81-99 [facility] Hematocrit Auto (Bld) [Volum e fraction]Ordered By: CHRISTIEASUNCION HYLTON on 01-25-2023 Hematocrit (Bld) [Volume fraction] 30.6 % 37-47 [facility] Laboratory - Hematology and Cell countsOrdered By: CHRISTIEASUNCION HYLTON on 01-25-2023 Erythrocyte distribution width (RBC) [Entitic vol] 44.0 fL 35.1-43.9 [facility] Erythrocyte distribution width (RBC) [Ratio] 12.6 % 11.6-14.6 [facility] Immature granulocytes/100 WBC (Bld) 0.500 % 0.0-0.9 [facility] Comment on above: IG% - Immature Granu locytes (promyelocytes, myelocytes and metamyelocytes) > 1% indicates that a LEFT SHIFT is Present. MCH (RBC) [Entitic mass] 29.6 pg 27.0-32.0 [facility] Nucleated RBC/100 WBC (Bld) [Ratio] 0 % 0-5 [facility] MCHC Auto (RBC) [Mass/Vol]Or dered By: CHRISTIE HYLTON on 01-25-2023 MCHC (RBC) [Mass/Vol] 31.4 g/dL 32-[address] [facility] No Panel InformationOrdered By: CHRISTIE HYLTON on 01-25-2023 Valproic Acid (Depakene) Level 103 ug/mL 50-100 [facility] Platelets bldOrdered By: JOSETTE JOSUE WARNER on 01-25-2023 Platelets (Bld) [#/Vol] 216 10*3/uL 150-450 [facility] Basophil percentageOrdered B y: CHRISTIEASUNCION HYLTON on 01-18-2023 Bilirubin [Mass/Vol] 0.20 mg/dL 0.20-1.00 [facility] Comment on above: For patients on eltr ombopag therapy, use of Dimension Grawn TBIL is not recommended. Chloride [Moles/Vol] 104 mmol/L 98-107 [facility] Glucose [Mass/Vol] 115 mg/dL 74-106 [facility] Comment on above: Fasting Glucose resu lt from 100 to 125 mg/dL suggests IMPAIRED HOMEOSTASIS per A.D.A. criteria. Potassium [Moles/Vol] 4.3 mmol/L 3.5-5.[address] [facility] Protein [Mass/Vol] 7.0 g/dL 6.4-8.2 [facility] Sodium [Moles/Vol] 138 mmol/L 136-145 [facility] Laboratory - Chemistry and C hemistry - challengeOrdered By: CHRISTIE HYLTON on 01-18-2023 ALP [Catalytic activity/Vol] 64 U/L 45-117 [facility] ALT [Catalytic activity/Vol] 9 U/L 13-56 [facility] CO2 [Moles/Vol] 31.0 mmol/L 21.0-32.0 [facility] Globulin (S) [Mass/Vol] 4.2 g/dL 2.2-4.2 [facility] Urea nitrogen/Creatinine [Mass ratio] 25.4 mg/mg 10-20 [facility] No Panel InformationOrdered By: CHRISTIE HYLTON on 01-18-2023 Estimated GFR (MDRD) Amer 95 mL/min >60 [facility] Comment on above: GFR Calc Estimated GFR (MDRD) Non-Af Amer 78 mL/min >60 [facility] Comment on above: Non- GFR Calc Serum or plasma albumin renetta urement (mass/volume)Ordered By: CHRISTIE HYLTON on 01-18-2023 Albumin [Mass/Vol] 2.8 g/dL 3.2-5.0 [facility] Serum or plasma albumin/glob ulin mass ratioOrdered By: CHRISTIE HYLTON on 01-18-2023 Albumin/Globulin [Mass ratio] 0.7 {ratio} 0.9-2.4 [facility] Serum or plasma calcium renetta urement (mass/volume)Ordered By: CHRISTIE HYLTON on 01-18-2023 Calcium [Mass/Vol] 8.6 mg/dL 8.5-10.1 [facility] Serum or plasma creatinine m easurement (mass/volume)Ordered By: CHRISTIE HYLTON on 01-18-2023 Creatinine [Mass/Vol] 0.79 mg/dL 0.55-1.[address] [facility] Comment on above: The validity of the calculated GFR & GFRAA in patients over 70 years has not been determined. Clinical correlation is essential. Serum or plasma urea nitroge n measurement (mass/volume)Ordered By: CHRISTIE HYLTON on 01-18-2023 Urea nitrogen [Mass/Vol] 20 mg/dL 7-18 [facility] Thin prep Papanicolaou smear with manual screeningOrdered By: CHRISTIEASUNCION HYLTON on 01-18-2023 Thin prep Papanicolaou smear with manual screening 12 U/L 15-37 [facility] Thin prep Papanicolaou smear with manual screening 3 5-15 [facility] Progress Noteson 10-28-2022 [employer] Message Text ----- Friday, October 28, 2022 at 3:59:08 PM ----- ----- Provider: Cristy Walters DMD -- Clinic: [place] ----- Patient presented today to discuss fpc options for replacing her decayed bridge 8x10. Patient has lost her Medicaid insurance since her last appointment and will not be getting new dental insurance. Since patient is paying out of pocket for all dental treatment, she would like to pursue treatment at an office closer to home since she is from [place], [place]. I did advise patient that she needs to get a flipper to replace those teeth before the bridge breaks out of her mouth, patient agrees. If patient returns the next appointment would be impression for a flipper. Normal [employer] Progress Noteson 09-23-2022 [employer] Interface Message Text ----- Friday, September 23, 2022 at 12:51:09 PM ----- ----- Provider: [id number] - Teagan Keith Hygienist -- Clinic: [place] [address] ----- Pt presented [place] [facility] [place]. Radiograph taken today: 3 PA's X-ray. Limited exam with Dr. Becker Note:Patient shared that [facility] does not provide services for extractions or options to replace teeth. Dr. Becker reviewed process and options for replacing teeth, an appointment was made at [facility] [place] to discuss teeth replacement options before extractions are completed. TREATMENT PLAN: 1. Prosthodontic consultation to treatment plan tooth replacement options for teeth #8, 9, 10 2. EXT teeth #8-10 (fixed bridge) Teagan Keith [facility] [place]. Limited exam for tooth replacement options for teeth #8-10 ----- Signed on Friday, September 23, 2022 at 6:31:41 PM ----- ----- Provider: [id number] - Allie Becker DDS -- Clinic: [place] [address] ----- Normal [employer] Absolute lymphocyte counton 10-11-2021 Lymphocytes Auto (Unsp spec) [#/Vol] 2.10 10*3/uL 0.83-4.51 [facility] Work Phone: Basophil percentageon 2021 Basophils/100 WBC (Bld) 1.5 % 0-1 [facility] Work Phone: Bilirubin [Mass/Vol] 0.20 mg/dL 0.20-1.00 [facility] Work Phone: Comment on above: For patients on eltr ombopag therapy, use of Dimension [place] TBIL is not recommended. Chloride [Moles/Vol] 107 mmol/L 98-107 [facility] Work Phone: Eosinophils/100 WBC (Bld) 10.2 % 0-5 [facility] Work Phone: Glucose [Mass/Vol] 85 mg/dL 74-106 [facility] Work Phone: Neutrophils (Bld) [#/Vol] 4.5 10*3/uL 2.0-7.7 [facility] Work Phone: Neutrophils/100 WBC (Bld) 55.6 % 47-70 [facility] Work Phone: Potassium [Moles/Vol] 4.0 mmol/L 3.5-5.1 [facility] Work Phone: Protein [Mass/Vol] 7.4 g/dL 6.4-8.2 [facility] Work Phone: Sodium [Moles/Vol] 140 mmol/L 136-145 [facility] Work Phone: WBC (Bld) [#/Vol] 8.0 10*3/uL 4.4-11.0 [facility] Work Phone: Blood erythrocytes count (nu mber/volume)on 10-11-2021 RBC (Bld) [#/Vol] 4.18 10*6/uL 4.2-5.4 [facility] Work Phone: Blood hemoglobin measurement (mass/volume)on 10-11-2021 Hemoglobin (Bld) [Mass/Vol] 12.1 g/dL 12.0-15.0 [facility] Work Phone: Blood lymphocytes/100 leukoc yteson 10-11-2021 Lymphocytes/100 WBC (Bld) 26.1 % 19-41 [facility] Work Phone: Blood monocytes/100 leukocyt eson 10-11-2021 Monocytes/100 WBC (Bld) 6.2 % 0-10 [facility] Work Phone: Blood platelet mean volumeon 10-11-2021 Platelet mean volume (Bld) [Entitic vol] 8.9 fL 6.2-12.0 [facility] Work Phone: Determination of erythrocyte mean corpuscular volume (MCV)on 10-11-2021 MCV (RBC) [Entitic vol] 89.2 fL 81-99 [facility] Work Phone: [phone] Hematocrit Auto (Bld) [Volum e fraction]on 10-11-2021 Hematocrit (Bld) [Volume fraction] 37.3 % 37-47 [facility] Work Phone: [phone] Laboratory - Chemistry and C hemistry - challengeon 10-11-2021 ALP [Catalytic activity/Vol] 104 U/L 45-117 [facility] Work Phone: [phone] ALT [Catalytic activity/Vol] 14 U/L 13-56 [facility] Work Phone: [phone] CO2 [Moles/Vol] 27.0 mmol/L 21.0-32.0 [facility] Work Phone: [phone] Globulin (S) [Mass/Vol] 4.1 g/dL 2.2-4.2 [facility] Work Phone: [phone] Urea nitrogen/Creatinine [Mass ratio] 23.9 mg/mg 10-20 [facility] Work Phone: [phone] Laboratory - Hematology and Cell countson 10-11-2021 Erythrocyte distribution width (RBC) [Entitic vol] 37.6 fL 35.1-43.9 [facility] Work Phone: [phone] Erythrocyte distribution width (RBC) [Ratio] 11.6 % 11.6-14.6 [facility] Work Phone: [phone] Immature granulocytes/100 WBC (Bld) 0.400 % 0.0-0.9 [facility] Work Phone: [phone] Comment on above: IG% - Immature Granu locytes (promyelocytes, myelocytes and metamyelocytes) > 1% indicates that a LEFT SHIFT is Present. MCH (RBC) [Entitic mass] 28.9 pg 27.0-32.0 [facility] Work Phone: [phone] Nucleated RBC/100 WBC (Bld) [Ratio] 0 % 0-5 [facility] Work Phone: [phone] MCHC Auto (RBC) [Mass/Vol]on 07-18-2022 MCHC (RBC) [Mass/Vol] 32.4 g/dL 32-36 [facility] Work Phone: No Panel Informationon 10-11 Estimated GFR (MDRD) Amer 107 mL/min >60 [facility] Work Phone: Comment on above: GFR Calc Estimated GFR (MDRD) Non-Af Amer 88 mL/min >60 [facility] Work Phone: Comment on above: Non- GFR Calc Miscellaneous Test See comment [facility] Work Phone: Comment on above: TEST RESULT LIMITSVa lproic Acid (Total+Free) Valproic Acid (Depakote)(R),S 67 ug/mL 50-100 Detection Limit = 4 <4 indicates None Detected Toxicity may occur at levels of 100-500. Measurements of free unbound valproic acid may improve the assess- ment of clinical response. Free Valproic Acid (Depakote) 11.4 ug/mL 6.0-22.0 Detection Limit = 0.5 TESTING PERFORMED AT [facility]. ORIGINAL REPORT ON FILE IN LAB CONTAINS ADDITIONAL TEST SITE INFORMATION. Platelets bldon 10-11-2021 Platelets (Bld) [#/Vol] 264 10*3/uL 150-450 [facility] Work Phone: [phone] Serum or plasma albumin renetta urement (mass/volume)on 10-11-2021 Albumin [Mass/Vol] 3.3 g/dL 3.2-5.0 [facility] Work Phone: Serum or plasma albumin/glob ulin mass ratioon 10-11-2021 Albumin/Globulin [Mass ratio] 0.8 {ratio} 0.9-2.4 [facility] Work Phone: Serum or plasma calcium renetta urement (mass/volume)on 10-11-2021 Calcium [Mass/Vol] 8.8 mg/dL 8.5-10.1 [facility] Work Phone: Serum or plasma creatinine m easurement (mass/volume)on 10-11-2021 Creatinine [Mass/Vol] 0.71 mg/dL 0.55-1.[address] [facility] Work Phone: Comment on above: The validity of the calculated GFR & GFRAA in patients over 70 years has not been determined. Clinical correlation is essential. Serum or plasma urea nitroge n measurement (mass/volume)on 10-11-2021 Urea nitrogen [Mass/Vol] 17 mg/dL -18 [facility] Work Phone: Thin prep Papanicolaou smear with manual screeningon 10-11-2021 Thin prep Papanicolaou smear with manual screening 19 U/L 15-37 [facility] Work Phone: [phone] Thin prep Papanicolaou smear with manual screening 6 5-15 [facility] Work Phone: [phone] Absolute lymphocyte counton 07-02-2021 Lymphocytes Auto (Unsp spec) [#/Vol] 2.15 10*3/uL 0.83-4.51 [facility] Work Phone: Basophil percentageon 2021 Basophils/100 WBC (Bld) 1.1 % 0-1 [facility] Work Phone: Chloride [Moles/Vol] 106 mmol/L 98-107 [facility] Work Phone: Eosinophils/100 WBC (Bld) 9.8 % 0-5 [facility] Work Phone: Glucose [Mass/Vol] 87 mg/dL 74-106 [facility] Work Phone: Neutrophils (Bld) [#/Vol] 5.4 10*3/uL 2.0-7.7 [facility] Work Phone: Neutrophils/100 WBC (Bld) 58.1 % 47-70 [facility] Work Phone: Potassium [Moles/Vol] 4.0 mmol/L 3.5-5.1 [facility] Work Phone: Sodium [Moles/Vol] 139 mmol/L 136-145 [facility] Work Phone: WBC (Bld) [#/Vol] 9.4 10*3/uL 4.4-11.0 [facility] Work Phone: Blood erythrocytes count (nu mber/volume)on 07-02-2021 RBC (Bld) [#/Vol] 3.98 10*6/uL 4.2-5.4 [facility] Work Phone: Blood hemoglobin measurement (mass/volume)on 07-02-2021 Hemoglobin (Bld) [Mass/Vol] 12.0 g/dL 12.0-15.0 [facility] Work Phone: Blood lymphocytes/100 leukoc yteson 07-02-2021 Lymphocytes/100 WBC (Bld) 23.0 % 19-41 [facility] Work Phone: Blood monocytes/100 leukocyt eson 07-02-2021 Monocytes/100 WBC (Bld) 7.6 % 0-10 [facility] Work Phone: [phone] Blood platelet mean volumeon 07-02-2021 Platelet mean volume (Bld) [Entitic vol] 9.1 fL 6.2-12.0 [facility] Work Phone: Determination of erythrocyte mean corpuscular volume (MCV)on 07-02-2021 MCV (RBC) [Entitic vol] 91.5 fL 81-99 [facility] Work Phone: Hematocrit Auto (Bld) [Volum e fraction]on 07-02-2021 Hematocrit (Bld) [Volume fraction] 36.4 % 37-47 [facility] Work Phone: Iron measurement (mass/mass) on 07-02-2021 Iron (Unsp spec) [Mass/Mass] 66 ug/dL 50-170 [facility] Work Phone: Laboratory - Chemistry and C hemistry - challengeon 07-02-2021 CO2 [Moles/Vol] 29.0 mmol/L 21.0-32.0 [facility] Work Phone: [phone] Urea nitrogen/Creatinine [Mass ratio] 27.5 mg/mg 10-20 [facility] Work Phone: [phone] Laboratory - Hematology and Cell countson 07-02-2021 Erythrocyte distribution width (RBC) [Entitic vol] 40.8 fL 35.1-43.9 [facility] Work Phone: [phone] Erythrocyte distribution width (RBC) [Ratio] 12.1 % 11.6-14.6 [facility] Work Phone: Immature granulocytes/100 WBC (Bld) 0.400 % 0.0-0.9 [facility] Work Phone: [phone] Comment on above: IG% - Immature Granu locytes (promyelocytes, myelocytes and metamyelocytes) > 1% indicates that a LEFT SHIFT is Present. MCH (RBC) [Entitic mass] 30.2 pg 27.0-32.0 [facility] Work Phone: Nucleated RBC/100 WBC (Bld) [Ratio] 0 % 0-5 [facility] Work Phone: [phone] MCHC Auto (RBC) [Mass/Vol]on 07-02-2021 MCHC (RBC) [Mass/Vol] 33.0 g/dL 32-[address] [facility] Work Phone: No Panel Informationon 07-02 Estimated GFR (MDRD) Amer 118 mL/min >60 [facility] Work Phone: [phone] Comment on above: GFR Calc Estimated GFR (MDRD) Non-Af Amer 97 mL/min >60 [facility] Work Phone: [phone] Comment on above: Non- GFR Calc Total Iron Binding Capacity 330 ug/dL 250-450 [facility] Work Phone: Platelets bldon 07-02-2021 Platelets (Bld) [#/Vol] 271 10*3/uL 150-450 [facility] Work Phone: Serum or plasma calcium renetta urement (mass/volume)on 07-02-2021 Calcium [Mass/Vol] 8.5 mg/dL 8.5-10.1 [facility] Work Phone: Serum or plasma creatinine m easurement (mass/volume)on 07-02-2021 Creatinine [Mass/Vol] 0.66 mg/dL 0.55-1.02 [facility] Work Phone: Comment on above: The validity of the calculated GFR & GFRAA in patients over 70 years has not been determined. Clinical correlation is essential. Serum or plasma urea nitroge n measurement (mass/volume)on 07-02-2021 Urea nitrogen [Mass/Vol] 18 mg/dL 7-18 [facility] Work Phone: Thin prep Papanicolaou smear with manual screeningon 07-02-2021 Thin prep Papanicolaou smear with manual screening 4 5-15 [facility] Work Phone: Topiramateon 01-30-2019 Topiramate 4.5 ug/mL Low 5.0-20.0 [place] Comment on above: Result Comment: Refe rence ranges and high/low indicator flags are provided as general guidelines only. The treating physician must determine appropriate target levels/dosing based on the specific clinical situation. This test was developed and its performance characteristics determined by [facility] [place] ([facility]). It has not been cleared or approved by the FDA. [facility] is regulated under CLIA as qualified to perform high complexity testing. This test is used for clinical purposes. It should not be regarded as investigational or for research. Performing Laboratory: [facility] [address] [place] [address] Performed By: #### T OPIX #### [address] [address] Urine Drug Screenon 01-30-20 19 Urine Barbiturates Non-detected Normal Non-Detec t ed [place] Comment on above: Performed By: #### U DRG2 #### [facility] [address] [place] [address] Urine Benzodiazepine Non-detected Normal Non-Det ect ed [place] Comment on above: Performed By: #### U DRG2 #### [facility] [address] [place] [address] Urine PCP Non-detected Normal Non-Detect ed [place] Comment on above: Performed By: #### U DRG2 #### [facility] [address] [place] [address] Urine Opiate Non-detected Normal Non-Detect ed [place] Comment on above: Performed By: #### U DRG2 #### [facility] [address] [place] [address] Urine THC see below Normal Non-Detect ed [place] Comment on above: Result Comment: Dete cted (unconfirmed) Urine Drug Cutoff Levels Urine Amphetamine 500 ng/mL Urine Barbiturate 200 ng/mL Urine Benzodiazepines 200 ng/mL Urine Cocaine 150 ng/mL Urine Phencyclidine (PCP) 25 ng/mL Urine Opiates 300 ng/mL Urine THC 50 ng/mL The results of these analytes are unconfirmed and reported qualitatively as detected or non-detected relative to the cutoff value. Detected results indicate the sample is likely to contain the analyte. Non-detected results indicate that either the sample does not contain the analyte or it is present in concentrations below the cutoff level. This drug screen should be used for medical diagnostic purposes only. Performed By: #### U DRG2 #### [facility] [address] [place] [address] Urine Amphetamine Non-detected Normal Non-Detect ed [place] Comment on above: Performed By: #### U DRG2 #### [facility] [address] [place] [address] Urine Cocaine Metab Non-detected Normal Non-Dete ct ed [place] Comment on above: Performed By: #### U DRG2 #### [place] [address] Activated PTTon 01-28-2019 aPTT Coag (Bld) [Time] 27.1 s Normal 23.0-32.4 [facility] Comment on above: Result Comment: Unfr actionated Heparin Therapeutic Ranges: Standard Heparin Nomogram: 53 to 78 seconds (anti-Xa level of 0.3 to 0.7 U/mL) Low Dose/ACS Nomogram: 49 to 67 seconds (anti-Xa level of 0.2 to 0.5 U/mL) Stroke Treatment Nomogram: 49 to 67 seconds (anti-Xa level of 0.2 to 0.5 U/mL) Note: The APTT therapeutic range has been determined for the current lot of laboratory APTT reagent in use throughout the [facility]. Performed By: #### A PTT #### [place] [address] Comprehensive Panelon 2018 ALP [Catalytic activity/Vol] 85 U/L Normal 45-117 [place] Comment on above: Performed By: #### P 14 #### [place] [address] Bilirubin [Mass/Vol] 0.2 mg/dL Normal 0.2-1.0 [facility] Comment on above: Performed By: #### P 14 #### [place] [address] Protein [Mass/Vol] 7.6 g/dL Normal 6.4-8.2 [place] Comment on above: Performed By: #### P 14 #### [place] [address] ALT [Catalytic activity/Vol] 18 U/L Normal 12-78 [place] Comment on above: Performed By: #### P 14 #### [facility] [address] [place], [place] [address] AST [Catalytic activity/Vol] 25 U/L Normal 15-37 [place] Comment on above: Performed By: #### P 14 #### [facility] [address] [place], [place] [address] Creatinine [Mass/Vol] 0.61 mg/dL Normal 0.51-0.95 [facility] Comment on above: Performed By: #### P 14 #### [facility] [address] [place], [place] [address] Albumin [Mass/Vol] 3.8 g/dL Normal 3.4-5.0 [place] Comment on above: Performed By: #### P 14 #### [facility] [address] [place], [place] [address] Anion gap [Moles/Vol] 9 mmol/L Normal 8-16 [facility] Comment on above: Performed By: #### P 14 #### [facility] [address] [place], [place] [address] CO2 [Moles/Vol] 24 mmol/L Normal 21-32 [place] Comment on above: Performed By: #### P 14 #### [facility] [address] [place], [place] [address] Glucose [Mass/Vol] 75 mg/dL Normal 70-99 [place] Comment on above: Performed By: #### P 14 #### [facility] [address] [place], [place] [address] Urea nitrogen [Mass/Vol] 15 mg/dL Normal 7-18 [place] Comment on above: Performed By: #### P 14 #### [facility] [address] [place], [place] [address] Calcium [Mass/Vol] 8.5 mg/dL Normal 8.5-10.1 [place] Comment on above: Performed By: #### P 14 #### [facility] [address] [place], [place] [address] Chloride [Moles/Vol] 109 mmol/L High 98-107 [facility] Comment on above: Performed By: #### P 14 #### [facility] [address] [place], [place] [address] Potassium [Moles/Vol] 3.0 mmol/L Low 3.5-5.1 [facility] Comment on above: Performed By: #### P 14 #### [facility] [address] [place], [place] [address] Sodium [Moles/Vol] 139 mmol/L Normal 136-145 [place] Comment on above: Performed By: #### P 14 #### [facility] [address] [place] [address] Hemogram/Diffon 01-28-2019 Abs Immature Grans 0.03 thou/cmm Normal 0.00-0.05 [facility] Comment on above: Performed By: #### C BCD1 #### [facility] [address] [place] [address] Abs Neut (ANC) 6.56 thou/cmm High 1.56-6.13 [place] Comment on above: Performed By: #### C BCD1 #### [facility] [address] [place] [address] Abs. Baso 0.08 thou/cmm Normal 0.01-0.08 [place] Comment on above: Performed By: #### C BCD1 #### [place] [address] Abs. [place] 0.59 thou/cmm Normal 0.27-0.70 [place] Comment on above: Performed By: #### C BCD1 #### [place] [address] Basophils/100 WBC (Bld) 0.9 % Normal [place] Comment on above: Performed By: #### C BCD1 #### [place] [id number] Eosinophils (Bld) [#/Vol] 0.22 thou/cmm Normal 0.00-0.31 [place] Comment on above: Performed By: #### C BCD1 #### [facility] [address] [place] [address] Eosinophils/100 WBC (Bld) 2.4 % Normal [place] Comment on above: Performed By: #### C BCD1 #### [place] [address] Erythrocyte distribution width (RBC) [Ratio] 12.2 % Normal 11.7-14.4 [place] Comment on above: Performed By: #### C BCD1 #### [place] [address] Hematocrit (Bld) [Volume fraction] 42.1 % Normal 34.1-44.9 [place] Comment on above: Performed By: #### C BCD1 #### [facility] 1 [place], [place] [address] Hemoglobin (Bld) [Mass/Vol] 14.0 g/dL Normal 11.2-15.7 [place] Comment on above: Performed By: #### C BCD1 #### [facility] [address] [place], [place] [address] Immature Grans 0.30 % Normal [place] Comment on above: Performed By: #### C BCD1 #### [facility] [address] [place], [place] [address] Lymphocytes (Bld) [#/Vol] 1.60 thou/cmm Normal 1.18-3.74 [place] Comment on above: Performed By: #### C BCD1 #### [address] [address] Lymphocytes/100 WBC (Bld) 17.6 % Normal [place] Comment on above: Performed By: #### C BCD1 #### [facility] [address] [place], [place] [address] MCH (RBC) [Entitic mass] 32.4 pg High 25.6-32.2 [place] Comment on above: Performed By: #### C BCD1 #### [address] [address] MCHC (RBC) [Mass/Vol] 33.3 % Normal 31.6-34.8 [facility] Comment on above: Performed By: #### C BCD1 #### [facility] [address] [place], [place] [address] MCV (RBC) [Entitic vol] 97.5 fL High 79.4-94.8 [place] Comment on above: Performed By: #### C BCD1 #### [facility] [address] [place], [place] [address] Monocytes/100 WBC (Bld) 6.5 % Normal [place] Comment on above: Performed By: #### C BCD1 #### [facility] [address] [place], [place] [address] Platelet mean volume (Bld) [Entitic vol] 9.5 fL Normal 9.4-12.3 [place] Comment on above: Performed By: #### C BCD1 #### [facility] [address] [place], [place] [address] Platelets (Bld) [#/Vol] 305 thou/cmm Normal 182-369 [place] Comment on above: Performed By: #### C BCD1 #### [facility] [address] [place] [id number] RBC (Bld) [#/Vol] 4.32 mil/cmm Normal 3.93-5.22 [place] Comment on above: Performed By: #### C BCD1 #### [facility] [address] [place] [address] RDW SD 44.3 fl Normal 36.4-46.3 [place] Comment on above: Performed By: #### C BCD1 #### [facility] [address] [place] [id number] Seg Neutrophil 72.3 % Normal [place] Comment on above: Performed By: #### C BCD1 #### [facility] [address] [place] [address] WBC (Bld) [#/Vol] 9.08 thou/cmm Normal 3.98-10.04 [facility] Comment on above: Performed By: #### C BCD1 #### [facility] [address] [place] [address] MDRD GFRon 01-28-2019 GFR/1.73 sq M predicted among non-blacks MDRD (S/P/Bld) [Vol rate/Area] mL/min/{1.73_m2} Normal >60mL/min/ 1.73m2 [place] Comment on above: Result Comment: If t he patient is , multiply the result by 1.210. Performed By: #### G FR #### [place] [address] Protimeon 01-28-2019 INR Coag (PPP) [Relative time] 1.07 {INR} Normal 0.90-1.30 [place] Comment on above: Result Comment: Edwige min K Antagonist (VKA) Therapeutic Range: INR 2 to 3 (Target INR of 2.5) Note: For patients treated with VKA drugs, such as warfarin, the [place] [employer] 2012 Guideline recommends a therapeutic INR range of 2 to 3 (target INR of 2.5). This recommendation includes high-risk patients with antiphospholipid syndrome with previous arterial or venous thromboembolism, current-generation mechanical or bioprosthetic aortic heart valve replacement. Note: Patients with mechanical aortic valve replacement and additional risk factors for thromboembolic events (atrial fibrillation, previous thromboembolism, LV dysfunction, hypercoagulable conditions) or an older generation mechanical AVR (i.e., ball in-Cage) or any mechanical MVR should have a INR therapeutic range of 2.5 to 3.5 target INR of 3). Summer GH, et al. Chest 2012; 141:7S-47S Jermain RA et al. [facility] 2017; 70: 252-289 Performed By: #### P T #### [place] [address] PT Coag (PPP) [Time] 11.5 s Normal 9.7-13.0 [facility] Comment on above: Performed By: #### P T #### [place] [id number] Office Visit: c-scope for po sitive fecal occult teston 12-21-2016 Alcoholism counseling (procedure) no Invalid Interpretation Code [facility] [employer] Work Phone: Documentation of current medications (procedure) Done Invalid Interpretation Code [facility] [employer] Work Phone: Fall risk assessment No Invalid Interpretation Code [facility] [employer] Work Phone: Protein mass conc no Invalid Interpretation Code [facility] [employer] Work Phone: Protein mass conc Done Invalid Interpretation Code [facility] [employer] Work Phone: Tobacco smoking status NHIS Never Invalid Interpretation Code [facility] [employer] Work Phone: Tobacco smoking status NHIS Former smoker Invalid Interpretation Code [facility] [employer] Work Phone: Tobacco use HS Former smoker Invalid Interpretation Code [facility] [employer] Work Phone: Vital Signs Date Time Vital Sign Value Performing Clinician Facility 11-21-2024 01:40-0400 Diastolic blood pressure 65 mm[Hg] Zebulun Beam MECHANIC SENIOR-C Work Phone: 5(446)109-485863 [place] [address] 11-21-2024 01:40-0400 Heart rate 106 /min Zebulun Beam MECHANIC SENIOR-C Work Phone: 6(281)875-076163 [place] [address] 11-21-2024 01:40-0400 Respiratory rate 24 /min Zebulun Beam MECHANIC SENIOR-C Work Phone: 6(067)645-603063 [place] [address] 11-21-2024 01:40-0400 Systolic blood pressure 92 mm[Hg] Zebulun Beam MECHANIC SENIOR-C Work Phone: 1(075)872-347663 [place] [address] 11-21-2024 01:30-0400 Inhaled oxygen flow rate 15 L/min Zebulun Beam MECHANIC SENIOR-C Work Phone: 2(967)596-288563 [place] [address] 11-21-2024 01:30-0400 SaO2% (BldA) [Mass fraction] 100 % Zebulun Beam MECHANIC SENIOR-C Work Phone: 5(058)535-882063 [place] [address] 11-21-2024 01:12-0400 Body temperature 98 [degF] Zebulun Beam MECHANIC SENIOR-C Work Phone: 3(069)551-394063 [place] [address] 11-21-2024 00:58-0400 Body weight 43.9 kg Zebulun Beam MECHANIC SENIOR-C Work Phone: 5(680)252-566963 [place] [address] 11-20-2024 21:45-0400 Body height 160.02 cm Zebulun Beam MECHANIC SENIOR-C Work Phone: 2(141)258-920663 [place] [address] 11-20-2024 21:45-0400 Body mass index (BMI) [Ratio] 17.1 kg/m2 Zebulun Beam MECHANIC SENIOR-C Work Phone: 1(636)754-469163 [place] [address] 11-19-2024 09:45-0400 Body temperature 98.1 [degF] Treatment Wstr Work Phone: [facility] 11-19-2024 09:45-0400 Diastolic blood pressure 74 mm[Hg] Treatment Wstr Work Phone: [facility] 11-19-2024 09:45-0400 Heart rate 104 /min Treatment Wstr Work Phone: [facility] 11-19-2024 09:45-0400 Respiratory rate 18 /min Treatment Wstr Work Phone: [facility] 11-19-2024 09:45-0400 SaO2% (BldA) [Mass fraction] 99 % Treatment Wstr Work Phone: [facility] 11-19-2024 09:45-0400 Systolic blood pressure 113 mm[Hg] Treatment Wstr Work Phone: [facility] 11-18-2024 14:46-0400 Body mass index (BMI) [Ratio] 15.06 kg/m2 Jimmie Poole MD Work Phone: [facility] 11-18-2024 14:46-0400 Body temperature 98.1 [degF] Jimmie Poole MD Work Phone: [facility] 11-18-2024 14:46-0400 Body weight 38.56 kg Jimmie Poole MD Work Phone: [facility] 11-18-2024 14:46-0400 Diastolic blood pressure 58 mm[Hg] Jimmie Poole MD Work Phone: [facility] 11-18-2024 14:46-0400 Heart rate 96 /min Jimmie Poole MD Work Phone: [facility] 11-18-2024 14:46-0400 SaO2% (BldA) [Mass fraction] 98 % Jimmie Poole MD Work Phone: [facility] 11-18-2024 14:46-0400 Systolic blood pressure 94 mm[Hg] Jimmie Poole MD Work Phone: [facility] 11-18-2024 14:24-0400 Body mass index (BMI) [Ratio] 15.06 kg/m2 Lab/Port Wstr Work Phone: [facility] 11-18-2024 14:24-0400 Body weight 38.56 kg Lab/Port Wstr Work Phone: [facility] 11-08-2024 08:40-0400 Body temperature 98.4 [degF] Zebulun Beam MECHANIC SENIOR-C Work Phone: 9(138)410-714625 [place] [address] 11-08-2024 08:40-0400 Diastolic blood pressure 60 mm[Hg] Zebulun Beam MECHANIC SENIOR-C Work Phone: 6(737)406-557025 [place] [address] 11-08-2024 08:40-0400 Heart rate 76 /min Zebulun Beam MECHANIC SENIOR-C Work Phone: 1(723)927-449025 [place] [address] 11-08-2024 08:40-0400 Respiratory rate 17 /min Zebulun Beam MECHANIC SENIOR-C Work Phone: 2(206)744-760925 [place] [address] 11-08-2024 08:40-0400 SaO2% (BldA) [Mass fraction] 98 % Zebulun Beam MECHANIC SENIOR-C Work Phone: 4(074)862-898325 [place] [address] 11-08-2024 08:40-0400 Systolic blood pressure 117 mm[Hg] Zebulun Beam MECHANIC SENIOR-C Work Phone: 7(815)738-235625 [place] [address] 11-07-2024 16:28-0400 Body height 160.02 cm Zebulun Beam MECHANIC SENIOR-C Work Phone: 8(218)266-731325 [place] [address] 11-07-2024 16:28-0400 Body mass index (BMI) [Ratio] 15.7 kg/m2 Zebulun Beam MECHANIC SENIOR-C Work Phone: 6(302)541-647725 [place] [address] 11-07-2024 16:28-0400 Body weight 40.36 kg Zebulun Beam MECHANIC SENIOR-C Work Phone: 5(152)741-042925 [place] [address] 11-07-2024 16:15-0400 Body temperature 97.8 [degF] Zebulun Beam MECHANIC SENIOR-C Work Phone: 9(675)394-092025 [place] [address] 11-07-2024 16:15-0400 Diastolic blood pressure 88 mm[Hg] Zebulun Beam MECHANIC SENIOR-C Work Phone: [facility] 11-07-2024 16:15-0400 Heart rate 76 /min Zebulun Beam MECHANIC SENIOR-C Work Phone: [facility] 11-07-2024 16:15-0400 Respiratory rate 18 /min Zebulun Beam MECHANIC SENIOR-C Work Phone: [facility] 11-07-2024 16:15-0400 SaO2% (BldA) [Mass fraction] 96 % Zebulun Beam MECHANIC SENIOR-C Work Phone: [facility] 11-07-2024 16:15-0400 Systolic blood pressure 135 mm[Hg] Zebulun Beam MECHANIC SENIOR-C Work Phone: 7(146)658-475725 [place] [address] 11-07-2024 11:22-0400 Body mass index (BMI) [Ratio] 14.7 kg/m2 Zebulun Beam MECHANIC SENIOR-C Work Phone: 2(698)594-897725 [place] [address] 11-07-2024 11:22-0400 Body weight 39 kg Zebulun Beam MECHANIC SENIOR-C Work Phone: 0(466)446-257325 [place] [address] 11-07-2024 11:18-0400 Body height 162.56 cm Zebulun Beam MECHANIC SENIOR-C Work Phone: [facility] 11-07-2024 09:22-0400 Body temperature 97 [degF] Treatment Wstr Work Phone: [facility] 11-07-2024 09:22-0400 Diastolic blood pressure 67 mm[Hg] Treatment Wstr Work Phone: [facility] 11-07-2024 09:22-0400 Heart rate 78 /min Treatment Wstr Work Phone: [facility] 11-07-2024 09:22-0400 SaO2% (BldA) [Mass fraction] 99 % Treatment Wstr Work Phone: [facility] 11-07-2024 09:22-0400 Systolic blood pressure 124 mm[Hg] Treatment Wstr Work Phone: [facility] 11-06-2024 12:32-0400 Body temperature 97.9 [degF] Treatment Wstr Work Phone: [facility] 11-06-2024 12:32-0400 Diastolic blood pressure 58 mm[Hg] Treatment Wstr Work Phone: [facility] 11-06-2024 12:32-0400 Heart rate 79 /min Treatment Wstr Work Phone: [facility] 11-06-2024 12:32-0400 Respiratory rate 18 /min Treatment Wstr Work Phone: [facility] 11-06-2024 12:32-0400 SaO2% (BldA) [Mass fraction] 98 % Treatment Wstr Work Phone: [facility] 11-06-2024 12:32-0400 Systolic blood pressure 95 mm[Hg] Treatment Wstr Work Phone: [facility] 11-06-2024 09:37-0400 Body height 160 cm Treatment Wstr Work Phone: [facility] 11-06-2024 09:37-0400 Body mass index (BMI) [Ratio] 15.95 kg/m2 Treatment Wstr Work Phone: [facility] 11-06-2024 09:37-0400 Body weight 40.82 kg Treatment Wstr Work Phone: [facility] 11-05-2024 10:25-0400 Body mass index (BMI) [Ratio] 15.53 kg/m2 Jimmie Poole MD Work Phone: [facility] 11-05-2024 10:25-0400 Body temperature 97.7 [degF] Jimmie Poole MD Work Phone: [facility] 11-05-2024 10:25-0400 Body weight 41.05 kg Jimmie Poole MD Work Phone: [facility] 11-05-2024 10:25-0400 Diastolic blood pressure 54 mm[Hg] Jimmie Poole MD Work Phone: [facility] 11-05-2024 10:25-0400 Heart rate 85 /min Jimmie Poole MD Work Phone: [facility] 11-05-2024 10:25-0400 SaO2% (BldA) [Mass fraction] 98 % Jimmie Poole MD Work Phone: [facility] 11-05-2024 10:25-0400 Systolic blood pressure 92 mm[Hg] Jimmie Poole MD Work Phone: [facility] 10-23-2024 11:38-0400 Body temperature 97.9 [degF] Zebulun Beam MECHANIC SENIOR-C Work Phone: [facility] 10-23-2024 11:38-0400 Diastolic blood pressure 88 mm[Hg] Zebulun Beam MECHANIC SENIOR-C Work Phone: [facility] 10-23-2024 11:38-0400 Heart rate 99 /min Zebulun Beam MECHANIC SENIOR-C Work Phone: [facility] 10-23-2024 11:38-0400 Respiratory rate 18 /min Zebulun Beam MECHANIC SENIOR-C Work Phone: [facility] 10-23-2024 11:38-0400 SaO2% (BldA) [Mass fraction] 99 % Zebulun Beam MECHANIC SENIOR-C Work Phone: [facility] 10-23-2024 11:38-0400 Systolic blood pressure 132 mm[Hg] Zebulun Beam MECHANIC SENIOR-C Work Phone: [facility] 10-23-2024 09:17-0400 Body height 162.56 cm Zebulun Beam MECHANIC SENIOR-C Work Phone: [facility] 10-10-2024 14:00-0400 Body mass index (BMI) [Ratio] 15.35 kg/m2 Jimmie Poole MD Work Phone: [facility] 10-10-2024 14:00-0400 Body temperature 98.1 [degF] Jimmie Poole MD Work Phone: [facility] 10-10-2024 14:00-0400 Body weight 40.6 kg Jimmie Poole MD Work Phone: [facility] 10-10-2024 14:00-0400 Diastolic blood pressure 53 mm[Hg] Jimmie Poole MD Work Phone: [facility] 10-10-2024 14:00-0400 Heart rate 79 /min Jimmie Poole MD Work Phone: [facility] 10-10-2024 14:00-0400 SaO2% (BldA) [Mass fraction] 98 % Jimmie Poole MD Work Phone: [facility] 10-10-2024 14:00-0400 Systolic blood pressure 91 mm[Hg] Jimmie Poole MD Work Phone: [facility] 09-25-2024 14:34-0400 Body mass index (BMI) [Ratio] 15.1 kg/m2 Jimmie Poole MD Work Phone: [facility] 09-25-2024 14:34-0400 Body temperature 97.5 [degF] Jimmie Poole MD Work Phone: [facility] 09-25-2024 14:34-0400 Body weight 39.92 kg Jimmie Poole MD Work Phone: [facility] 09-25-2024 14:34-0400 Diastolic blood pressure 52 mm[Hg] Jimmie Poole MD Work Phone: [facility] 09-25-2024 14:34-0400 Heart rate 79 /min Jimmie Poole MD Work Phone: [facility] 09-25-2024 14:34-0400 SaO2% (BldA) [Mass fraction] 98 % Jimmie Poole MD Work Phone: [facility] 09-25-2024 14:34-0400 Systolic blood pressure 94 mm[Hg] Jimmie Poole MD Work Phone: [facility] 09-16-2024 10:33-0400 Body height 162.6 cm Tessa Spring MD Work Phone: [facility] 09-16-2024 10:33-0400 Body mass index (BMI) [Ratio] 14.75 kg/m2 Tessa Spring MD Work Phone: [facility] 09-16-2024 10:33-0400 Body temperature 97.11 [degF] Tessa Spring MD Work Phone: [facility] 09-16-2024 10:33-0400 Body weight 39 kg Tessa Spring MD Work Phone: [facility] 09-16-2024 10:33-0400 Diastolic blood pressure 72 mm[Hg] Tessa Spring MD Work Phone: [facility] 09-16-2024 10:33-0400 Heart rate 92 /min Tessa Spring MD Work Phone: [facility] 09-16-2024 10:33-0400 SaO2% (BldA) [Mass fraction] 97 % Tessa Spring MD Work Phone: [facility] 09-16-2024 10:33-0400 Systolic blood pressure 101 mm[Hg] Tessa Spring MD Work Phone: [facility] 09-13-2024 08:36-0400 Body temperature 98 [degF] Zebulun Beam MECHANIC SENIOR-C Work Phone: [facility] 09-13-2024 08:36-0400 Diastolic blood pressure 69 mm[Hg] Zebulun Beam MECHANIC SENIOR-C Work Phone: [facility] 09-13-2024 08:36-0400 Heart rate 70 /min Zebulun Beam MECHANIC SENIOR-C Work Phone: [facility] 09-13-2024 08:36-0400 Respiratory rate 16 /min Zebulun Beam MECHANIC SENIOR-C Work Phone: [facility] 09-13-2024 08:36-0400 SaO2% (BldA) [Mass fraction] 99 % Zebulun Beam MECHANIC SENIOR-C Work Phone: [facility] 09-13-2024 08:36-0400 Systolic blood pressure 106 mm[Hg] Zebulun Beam MECHANIC SENIOR-C Work Phone: [facility] 09-11-2024 14:41-0400 Body height 162.56 cm Zebulun Beam MECHANIC SENIOR-C Work Phone: [facility] 09-11-2024 14:41-0400 Body weight 40 kg Zebulun Beam MECHANIC SENIOR-C Work Phone: [facility] 09-10-2024 13:44-0400 Body mass index (BMI) [Ratio] 15.1 kg/m2 Zebulun Beam MECHANIC SENIOR-C Work Phone: [facility] 07-31-2024 08:27-0400 Body mass index (BMI) [Ratio] 16.13 kg/m2 Jimmie Poole MD Work Phone: [facility] 07-31-2024 08:27-0400 Body temperature 97.39 [degF] Jimmie Poole MD Work Phone: [facility] 07-31-2024 08:27-0400 Body weight 42.64 kg Jimmie Poole MD Work Phone: [facility] 07-31-2024 08:27-0400 Diastolic blood pressure 62 mm[Hg] Jimmie Poole MD Work Phone: [facility] 07-31-2024 08:27-0400 Heart rate 77 /min Jimmie Poole MD Work Phone: [facility] 07-31-2024 08:27-0400 SaO2% (BldA) [Mass fraction] 100 % Jimmie Poole MD Work Phone: [facility] 07-31-2024 08:27-0400 Systolic blood pressure 94 mm[Hg] Jimmie Poole MD Work Phone: [facility] 07-11-2024 13:22-0400 Body temperature 98.3 [degF] Christieasuncion Sánchez MECHANIC SENIOR-C Work Phone: 3(387)837-841725 [place] [address] 07-11-2024 13:22-0400 Diastolic blood pressure 84 mm[Hg] Christieasuncion Sánchez MECHANIC SENIOR-C Work Phone: 1(850)193-244125 [place] [address] 07-11-2024 13:22-0400 Heart rate 99 /min Christieasuncion Sánchez MECHANIC SENIOR-C Work Phone: 9(205)714-428225 [place] [address] 07-11-2024 13:22-0400 Respiratory rate 16 /min Christie Gonzalo MECHANIC SENIOR-C Work Phone: 5(785)500-363263 [place] [address] 07-11-2024 13:22-0400 SaO2% (BldA) [Mass fraction] 98 % Christieasuncion Sánchez MECHANIC SENIOR-C Work Phone: 6(178)270-387925 [place] [address] 07-11-2024 13:22-0400 Systolic blood pressure 122 mm[Hg] Christieasuncion Sánchez MECHANIC SENIOR-C Work Phone: 4(354)010-312225 [place] [address] 07-11-2024 11:00-0400 Body height 162.56 cm Christie Gonzalo MECHANIC SENIOR-C Work Phone: 4(297)037-230463 [place] [address] 07-11-2024 11:00-0400 Body mass index (BMI) [Ratio] 15.7 kg/m2 Christie Gonzalo MECHANIC SENIOR-C Work Phone: 9(060)673-471825 [place] [address] 07-11-2024 11:00-0400 Body weight 41.77 kg Christieasuncion Sánchez MECHANIC SENIOR-C Work Phone: 9(625)853-958325 [place] [address] 06-17-2024 09:57-0400 Body mass index (BMI) [Ratio] 15.53 kg/m2 Adrienne Bahena Work Phone: [facility] 06-17-2024 09:57-0400 Body temperature 96.49 [degF] Adrienne Bahena Work Phone: [facility] 06-17-2024 09:57-0400 Body weight 41.05 kg Adrienne Bahena Work Phone: [facility] 06-17-2024 09:57-0400 Diastolic blood pressure 63 mm[Hg] Adrienne Bahena Work Phone: [facility] 06-17-2024 09:57-0400 Heart rate 107 /min Adrienne Bahena Work Phone: [facility] 06-17-2024 09:57-0400 SaO2% (BldA) [Mass fraction] 99 % Adrienneolesya Bahena Work Phone: [facility] 06-17-2024 09:57-0400 Systolic blood pressure 94 mm[Hg] Adrienne Bahena Work Phone: [facility] 05-13-2024 11:44-0500 Body height 162.6 cm Fe Gambrills SIX PACK LOADER OPERATOR.BALL THREAD MACHINE TENDER Work Phone: [facility] 05-13-2024 11:44-0500 Body mass index (BMI) [Ratio] 16.34 kg/m2 Fe Gambrills SIX PACK LOADER OPERATOR.BALL THREAD MACHINE TENDER Work Phone: [facility] 05-13-2024 11:44-0500 Body weight 43.18 kg Fe Gambrills SIX PACK LOADER OPERATOR.BALL THREAD MACHINE TENDER Work Phone: [facility] 05-13-2024 11:44-0500 Heart rate 97 /min Fe Vaughnter SIX PACK LOADER OPERATOR.BALL THREAD MACHINE TENDER Work Phone: [facility] 05-13-2024 11:44-0500 SaO2% (BldA) [Mass fraction] 97 % Fe Vaughnter SIX PACK LOADER OPERATOR.BALL THREAD MACHINE TENDER Work Phone: [facility] 05-06-2024 11:25-0500 Body mass index (BMI) [Ratio] 16.05 kg/m2 Adrienne Bahena Work Phone: [facility] 05-06-2024 11:25-0500 Body temperature 97.11 [degF] Adrienne Marright Work Phone: [facility] 05-06-2024 11:25-0500 Body weight 42.41 kg Adrienne Bahena Work Phone: [facility] 05-06-2024 11:25-0500 Diastolic blood pressure 52 mm[Hg] Adrienne Bahena Work Phone: [facility] 05-06-2024 11:25-0500 Heart rate 83 /min Adrienne Bahena Work Phone: [facility] 05-06-2024 11:25-0500 SaO2% (BldA) [Mass fraction] 100 % Adrienne Bahena Work Phone: [facility] 05-06-2024 11:25-0500 Systolic blood pressure 88 mm[Hg] Adrienne Bahena Work Phone: [facility] 04-16-2024 14:03-0500 Body mass index (BMI) [Ratio] 15.79 kg/m2 Adrienne Bahena Work Phone: [facility] 04-16-2024 14:03-0500 Body temperature 98.6 [degF] Adrienne Bahena Work Phone: [facility] 04-16-2024 14:03-0500 Body weight 41.73 kg Adrienne Bahena Work Phone: [facility] 04-16-2024 14:03-0500 Diastolic blood pressure 65 mm[Hg] Adrienne Bahena Work Phone: [facility] 04-16-2024 14:03-0500 Heart rate 95 /min Adrienne Bahena Work Phone: [facility] 04-16-2024 14:03-0500 SaO2% (BldA) [Mass fraction] 96 % Adrienne Bahena Work Phone: [facility] 04-16-2024 14:03-0500 Systolic blood pressure 90 mm[Hg] Adrienne Bahena Work Phone: [facility] 04-08-2024 16:35-0500 Diastolic blood pressure 72 mm[Hg] Christie KIRBY Work Phone: [facility] 04-08-2024 16:35-0500 Heart rate 105 /min Christie REAVESC Work Phone: [facility] 04-08-2024 16:35-0500 Respiratory rate 18 /min Christie Sánchez MECHANIC SENIOR-C Work Phone: [facility] 04-08-2024 16:35-0500 SaO2% (BldA) [Mass fraction] 98 % Christie Sánchez MECHANIC SENIOR-C Work Phone: [facility] 04-08-2024 16:35-0500 Systolic blood pressure 128 mm[Hg] Christie Gonzalo MECHANIC SENIOR-C Work Phone: [facility] 04-08-2024 14:35-0500 Body mass index (BMI) [Ratio] 16 kg/m2 Christie Gonzalo MECHANIC SENIOR-C Work Phone: [facility] 04-08-2024 14:35-0500 Body temperature 96.8 [degF] Christie Sánchez MECHANIC SENIOR-C Work Phone: [facility] 04-08-2024 14:35-0500 Body weight 42.18 kg Christie Gonzalo MECHANIC SENIOR-C Work Phone: [facility] 04-08-2024 13:56-0500 Body mass index (BMI) [Ratio] 16.01 kg/m2 Jeremiah Adame MD Work Phone: [facility] 04-08-2024 13:56-0500 Body temperature 98.2 [degF] Jeremiah Adame MD Work Phone: [facility] 04-08-2024 13:56-0500 Body weight 42.3 kg Jeremiah Adame MD Work Phone: [facility] 04-08-2024 13:56-0500 Diastolic blood pressure 62 mm[Hg] Jeremiah Adame MD Work Phone: [facility] 04-08-2024 13:56-0500 Heart rate 118 /min Jeremiah Adame MD Work Phone: [facility] 04-08-2024 13:56-0500 Respiratory rate 18 /min Jeremiah Adame MD Work Phone: [facility] 04-08-2024 13:56-0500 SaO2% (BldA) [Mass fraction] 99 % Jeremiah Adame MD Work Phone: [facility] 04-08-2024 13:56-0500 Systolic blood pressure 104 mm[Hg] Jeremiah Adame MD Work Phone: [facility] 03-07-2024 10:18-0500 Body height 162.6 cm Tessa Spring MD Work Phone: [facility] 03-07-2024 10:18-0500 Body mass index (BMI) [Ratio] 16.57 kg/m2 Tessa Spring MD Work Phone: [facility] 03-07-2024 10:18-0500 Body weight 43.8 kg Tessa Spring MD Work Phone: [facility] 03-07-2024 10:18-0500 Diastolic blood pressure 72 mm[Hg] Tessa Spring MD Work Phone: [facility] 03-07-2024 10:18-0500 Heart rate 73 /min Tessa Spring MD Work Phone: [facility] 03-07-2024 10:18-0500 Systolic blood pressure 115 mm[Hg] Tessa Spring MD Work Phone: [facility] 02-03-2024 09:48-0500 Body temperature 98.01 [degF] Yulia Xie RN Work Phone: [facility] 02-03-2024 09:48-0500 Diastolic blood pressure 64 mm[Hg] Yulia Xie RN Work Phone: [facility] 02-03-2024 09:48-0500 Heart rate 84 /min Yulia Xie RN Work Phone: [facility] 02-03-2024 09:48-0500 Respiratory rate 16 /min Yulia Xie RN Work Phone: [facility] 02-03-2024 09:48-0500 SaO2% (BldA) [Mass fraction] 99 % Yulia Xie RN Work Phone: [facility] 02-03-2024 09:48-0500 Systolic blood pressure 102 mm[Hg] Yulia Xie RN Work Phone: [facility] 02-01-2024 10:46-0500 Body mass index (BMI) [Ratio] 15.28 kg/m2 Jimmie Poole MD Work Phone: [facility] 02-01-2024 10:46-0500 Body temperature 97.39 [degF] Jimmie Poole MD Work Phone: [facility] 02-01-2024 10:46-0500 Body weight 40.37 kg Jimmie Poole MD Work Phone: [facility] 02-01-2024 10:46-0500 Diastolic blood pressure 66 mm[Hg] Jimmie Poole MD Work Phone: [facility] 02-01-2024 10:46-0500 Heart rate 95 /min Jimmie Poole MD Work Phone: [facility] 02-01-2024 10:46-0500 SaO2% (BldA) [Mass fraction] 98 % Jimmie Poole MD Work Phone: [facility] 02-01-2024 10:46-0500 Systolic blood pressure 97 mm[Hg] Jimmie Poole MD Work Phone: [facility] 01-29-2024 09:59-0500 Body mass index (BMI) [Ratio] 15.17 kg/m2 Fe Edmond APRN.BALL THREAD MACHINE TENDER Work Phone: [facility] 01-29-2024 09:59-0500 Body weight 40.1 kg Fe Edmond APRN.BALL THREAD MACHINE TENDER Work Phone: [facility] 01-29-2024 09:59-0500 Diastolic blood pressure 68 mm[Hg] Fe Edmond APRN.BALL THREAD MACHINE TENDER Work Phone: [facility] 01-29-2024 09:59-0500 Heart rate 81 /min Fe Gambrills SIX PACK LOADER OPERATOR.BALL THREAD MACHINE TENDER Work Phone: [facility] 01-29-2024 09:59-0500 Respiratory rate 18 /min Fe Gambrills SIX PACK LOADER OPERATOR.BALL THREAD MACHINE TENDER Work Phone: [facility] 01-29-2024 09:59-0500 SaO2% (BldA) [Mass fraction] 99 % Fe Gambrills SIX PACK LOADER OPERATOR.BALL THREAD MACHINE TENDER Work Phone: [facility] 01-29-2024 09:59-0500 Systolic blood pressure 130 mm[Hg] Fe Gambrills SIX PACK LOADER OPERATOR.BALL THREAD MACHINE TENDER Work Phone: [facility] 01-26-2024 14:20-0400 Body temperature 98.1 [degF] Yulia Most RN Work Phone: [facility] 01-26-2024 14:20-0400 Diastolic blood pressure 60 mm[Hg] Yulia Most RN Work Phone: [facility] 01-26-2024 14:20-0400 Heart rate 92 /min Yulia Most RN Work Phone: [facility] 01-26-2024 14:20-0400 Respiratory rate 16 /min Yulia Most RN Work Phone: [facility] 01-26-2024 14:20-0400 SaO2% (BldA) [Mass fraction] 99 % Yulia Most RN Work Phone: [facility] 01-26-2024 14:20-0400 Systolic blood pressure 96 mm[Hg] Yulia Most RN Work Phone: [facility] 01-23-2024 11:39-0400 Body temperature 98.6 [degF] Montserrat Shobha STEEL UNLOADER Work Phone: [facility] 01-23-2024 11:39-0400 Diastolic blood pressure 68 mm[Hg] Montserrat Shobha STEEL UNLOADER Work Phone: [facility] 01-23-2024 11:39-0400 Heart rate 82 /min Montserrat Shobha STEEL UNLOADER Work Phone: [facility] 01-23-2024 11:39-0400 Respiratory rate 16 /min Montserrat Shobha STEEL UNLOADER Work Phone: [facility] 01-23-2024 11:39-0400 SaO2% (BldA) [Mass fraction] 99 % Montserrat Shobha STEEL UNLOADER Work Phone: [facility] 01-23-2024 11:39-0400 Systolic blood pressure 110 mm[Hg] Montserrat Shobha STEEL UNLOADER Work Phone: [facility] 01-19-2024 14:48-0400 Body temperature 98.6 [degF] Shelby Brown PT Work Phone: [facility] 01-19-2024 14:48-0400 Diastolic blood pressure 70 mm[Hg] Shelby Begum-Geovanna PT Work Phone: [facility] 01-19-2024 14:48-0400 Heart rate 71 /min Shelby Begum-Geovanna PT Work Phone: [facility] 01-19-2024 14:48-0400 Respiratory rate 16 /min Shelby Begum-Geovanna PT Work Phone: [facility] 01-19-2024 14:48-0400 SaO2% (BldA) [Mass fraction] 99 % Shelby Brown PT Work Phone: [facility] 01-19-2024 14:48-0400 Systolic blood pressure 104 mm[Hg] Shelby Brown PT Work Phone: [facility] 01-19-2024 12:39-0400 Body temperature 98.01 [degF] Yulia Xie RN Work Phone: [facility] 01-19-2024 12:39-0400 Diastolic blood pressure 62 mm[Hg] Yulia Xie RN Work Phone: [facility] 01-19-2024 12:39-0400 Heart rate 92 /min Yulia Xie RN Work Phone: [facility] 01-19-2024 12:39-0400 Respiratory rate 16 /min Yuliaalec Xie RN Work Phone: [facility] 01-19-2024 12:39-0400 SaO2% (BldA) [Mass fraction] 99 % Yuliaalec Xie RN Work Phone: [facility] 01-19-2024 12:39-0400 Systolic blood pressure 98 mm[Hg] Yulia Xie RN Work Phone: [facility] 01-18-2024 10:15-0400 Body height 162.6 cm Tessa Spring MD Work Phone: [facility] 01-18-2024 10:15-0400 Body mass index (BMI) [Ratio] 14.99 kg/m2 Tessa Spring MD Work Phone: [facility] 01-18-2024 10:15-0400 Body weight 39.6 kg Tessa Spring MD Work Phone: [facility] 01-18-2024 10:15-0400 Diastolic blood pressure 67 mm[Hg] Tessa Spring MD Work Phone: [facility] 01-18-2024 10:15-0400 Heart rate 79 /min Tessa Spring MD Work Phone: [facility] 01-18-2024 10:15-0400 Systolic blood pressure 104 mm[Hg] Tessa Spring MD Work Phone: [facility] 01-16-2024 09:57-0400 Heart rate 98 /min Dash Leonard PT Work Phone: [facility] 01-16-2024 09:57-0400 SaO2% (BldA) [Mass fraction] 99 % Dash Leonard PT Work Phone: [facility] 01-16-2024 09:36-0400 Body temperature 97.5 [degF] Dash Leonard PT Work Phone: [facility] 01-16-2024 09:36-0400 Diastolic blood pressure 60 mm[Hg] Dash Leonard PT Work Phone: [facility] 01-16-2024 09:36-0400 Respiratory rate 16 /min Dash Leonard PT Work Phone: [facility] 01-16-2024 09:36-0400 Systolic blood pressure 108 mm[Hg] Dash Leonard PT Work Phone: [facility] 01-13-2024 14:07-0400 Body temperature 98.49 [degF] Shelby Brown PT Work Phone: [facility] 01-13-2024 14:07-0400 Diastolic blood pressure 60 mm[Hg] Shelby Brown PT Work Phone: [facility] 01-13-2024 14:07-0400 Heart rate 92 /min Shelby Brown PT Work Phone: [facility] 01-13-2024 14:07-0400 Respiratory rate 16 /min Shelby Brown PT Work Phone: [facility] 01-13-2024 14:07-0400 SaO2% (BldA) [Mass fraction] 97 % Shelby Brown PT Work Phone: [facility] 01-13-2024 14:07-0400 Systolic blood pressure 90 mm[Hg] Shelby Brown PT Work Phone: [facility] 01-11-2024 17:18-0400 Body temperature 98.4 [degF] Pricila Peace RN Work Phone: [facility] 01-11-2024 17:18-0400 Diastolic blood pressure 64 mm[Hg] Pricila Peace RN Work Phone: [facility] 01-11-2024 17:18-0400 Heart rate 95 /min Priicla Peace RN Work Phone: [facility] 01-11-2024 17:18-0400 Respiratory rate 16 /min Pricila Peace RN Work Phone: [facility] 01-11-2024 17:18-0400 SaO2% (BldA) [Mass fraction] 97 % Pricila Peace RN Work Phone: [facility] 01-11-2024 17:18-0400 Systolic blood pressure 98 mm[Hg] Pricial Peace RN Work Phone: [facility] 12-28-2023 08:57-0400 Body height 162.6 cm Pacc 2 Work Phone: [facility] 12-28-2023 08:57-0400 Body mass index (BMI) [Ratio] 15.93 kg/m2 Pacc 2 Work Phone: [facility] 12-28-2023 08:57-0400 Body temperature 97.39 [degF] Pacc 2 Work Phone: [facility] 12-28-2023 08:57-0400 Body weight 42.1 kg Pacc 2 Work Phone: [facility] 12-28-2023 08:57-0400 Diastolic blood pressure 68 mm[Hg] Pacc 2 Work Phone: [facility] 12-28-2023 08:57-0400 Heart rate 89 /min Pacc 2 Work Phone: [facility] 12-28-2023 08:57-0400 Respiratory rate 16 /min Pacc 2 Work Phone: [facility] 12-28-2023 08:57-0400 SaO2% (BldA) [Mass fraction] 99 % Pacc 2 Work Phone: [facility] 12-28-2023 08:57-0400 Systolic blood pressure 94 mm[Hg] Pacc 2 Work Phone: [facility] 12-18-2023 10:02-0400 Body height 162.6 cm Tessa Spring MD Work Phone: [facility] 12-18-2023 10:02-0400 Body mass index (BMI) [Ratio] 16.07 kg/m2 Tessa Spring MD Work Phone: [facility] 12-18-2023 10:02-0400 Body temperature 97 [degF] Tessa Spring MD Work Phone: [facility] 12-18-2023 10:02-0400 Body weight 42.5 kg Tessa Spring MD Work Phone: [facility] 12-18-2023 10:02-0400 Diastolic blood pressure 62 mm[Hg] Tessa Spring MD Work Phone: [facility] 12-18-2023 10:02-0400 Heart rate 100 /min Tessa Spring MD Work Phone: [facility] 12-18-2023 10:02-0400 SaO2% (BldA) [Mass fraction] 98 % Tessa Spring MD Work Phone: [facility] 12-18-2023 10:02-0400 Systolic blood pressure 86 mm[Hg] Tessa Spring MD Work Phone: [facility] 12-18-2023 08:14-0400 Diastolic blood pressure 56 mm[Hg] Pipe Estevez MD Work Phone: [facility] 12-18-2023 08:14-0400 Heart rate 83 /min Pipe Estevez MD Work Phone: [facility] 12-18-2023 08:14-0400 SaO2% (BldA) [Mass fraction] 99 % Pipe Estevez MD Work Phone: [facility] 12-18-2023 08:14-0400 Systolic blood pressure 83 mm[Hg] Pipe Estevez MD Work Phone: [facility] 10-23-2023 09:02-0400 Body height 162.6 cm Christie Hylton MD Work Phone: [facility] 10-23-2023 09:02-0400 Body mass index (BMI) [Ratio] 15.45 kg/m2 Christie Hylton MD Work Phone: [facility] 10-23-2023 09:02-0400 Body weight 40.82 kg Christie Hylton MD Work Phone: [facility] 10-23-2023 09:02-0400 Diastolic blood pressure 61 mm[Hg] Christie Hylton MD Work Phone: [facility] 10-23-2023 09:02-0400 Heart rate 89 /min Christie Hylton MD Work Phone: [facility] 10-23-2023 09:02-0400 Respiratory rate 20 /min Christie Hylton MD Work Phone: [facility] 10-23-2023 09:02-0400 SaO2% (BldA) [Mass fraction] 99 % Christie Hylton MD Work Phone: [facility] 10-23-2023 09:02-0400 Systolic blood pressure 94 mm[Hg] Christie Hylton MD Work Phone: [facility] 10-11-2023 13:38-0400 Body mass index (BMI) [Ratio] 15.59 kg/m2 Cisco Gurrola MD Work Phone: [facility] 10-11-2023 13:38-0400 Body temperature 98.01 [degF] Cisco Gurrola MD Work Phone: [facility] 10-11-2023 13:38-0400 Body weight 41.19 kg Cisco Gurrola MD Work Phone: [facility] 10-11-2023 13:38-0400 Diastolic blood pressure 73 mm[Hg] Cisco Gurrola MD Work Phone: [facility] 10-11-2023 13:38-0400 Heart rate 96 /min Cisco Gurrola MD Work Phone: [facility] 10-11-2023 13:38-0400 SaO2% (BldA) [Mass fraction] 98 % Cisco Gurrola MD Work Phone: [facility] 10-11-2023 13:38-0400 Systolic blood pressure 104 mm[Hg] Cisco Gurrola MD Work Phone: [facility] 10-11-2023 11:34-0400 Body height 162.6 cm Roseanna Maldonado MD Work Phone: [facility] 10-11-2023 11:34-0400 Body mass index (BMI) [Ratio] 15.62 kg/m2 Roseanna Maldonado MD Work Phone: [facility] 10-11-2023 11:34-0400 Body temperature 97.59 [degF] Roseanna Maldonado MD Work Phone: [facility] 10-11-2023 11:34-0400 Body weight 41.28 kg Roseanna Maldonado MD Work Phone: [facility] 10-11-2023 11:34-0400 Diastolic blood pressure 63 mm[Hg] Roseanna Maldonado MD Work Phone: [facility] 10-11-2023 11:34-0400 Heart rate 96 /min Roseanna Maldonado MD Work Phone: [facility] 10-11-2023 11:34-0400 SaO2% (BldA) [Mass fraction] 96 % Roseanna Maldonado MD Work Phone: [facility] 10-11-2023 11:34-0400 Systolic blood pressure 103 mm[Hg] Roseanna Maldonado MD Work Phone: [facility] 10-03-2023 09:38-0400 Body height 162.6 cm Jayla Fung MD Work Phone: [facility] 10-03-2023 09:38-0400 Body mass index (BMI) [Ratio] 15.17 kg/m2 Jayla Fung MD Work Phone: [facility] 10-03-2023 09:38-0400 Body temperature 97 [degF] Jayla Fung MD Work Phone: [facility] 10-03-2023 09:38-0400 Body weight 40.1 kg Jayla Fung MD Work Phone: [facility] 10-03-2023 09:38-0400 Diastolic blood pressure 50 mm[Hg] Jayla Fung MD Work Phone: [facility] 10-03-2023 09:38-0400 Heart rate 122 /min Jayla Fung MD Work Phone: [facility] 10-03-2023 09:38-0400 SaO2% (BldA) [Mass fraction] 99 % Jayla Fung MD Work Phone: [facility] 10-03-2023 09:38-0400 Systolic blood pressure 96 mm[Hg] Jayla Fung MD Work Phone: [facility] 12-21-2016 13:05-0400 BMI (Body Mass Index) 18.3 kg/m2 [facility] Work Phone: 12-21-2016 13:05-0400 BP Diastolic 68 mm[Hg] [facility] Work Phone: 12-21-2016 13:05-0400 BP Systolic 101 mm[Hg] [facility] Work Phone: 12-21-2016 13:05-0400 Height 165.1 cm [facility] Work Phone: 12-21-2016 13:05-0400 Pulse (Heart Rate) 92 /min [facility] Work Phone: 12-21-2016 13:05-0400 Respiratory Rate 18 /min [facility] Work Phone: 12-21-2016 13:05-0400 Weight 49.9 kg [facility] Work Phone: Encounters Encounter Date Encounter Type Care Provider Facility Start: 11-21-2024 End: 11-21-2024 Office outpatient visit 40 minutes Tessa Spring MD Work Phone: General Surgery Comment on above: Adenocarcinoma of ce cum (HCC) (Primary Dx); Metastasis to liver (HCC) Start: 11-21-2024 End: 11-22-2024 ambulatory Saadia Gonzales APRN.BALL THREAD MACHINE TENDER Work Phone: Critical Care Start: 11-21-2024 End: 11-23-2024 Evaluation and management of inpatient [facility] Facility:[facility] Start: 11-20-2024 ambulatory Sivakumar [facility] Facility:[facility] Start: 11-20-2024 Non-patient / Non-visit Dr. Sivakumar liu MD -[facility] Start: 11-20-2024 End: 11-21-2024 Emergency department patient visit Aubrey Lopez NP-C Work Phone: -Emergency Department Work Phone: Start: 11-20-2024 End: 11-20-2024 Telephone encounter Kate Castillo RN Work Phone: Hematology/Oncology Comment on above: Care Coordination (F ollow up Call) [id number] [facility]i c[facility] Start: 11-19-2024 End: 11-19-2024 ambulatory Treatment Rm 10 L[facility] Work Phone: Hematology/Oncology Comment on above: Adenocarcinoma of ce cum (HCC) (Primary Dx) Start: 11-18-2024 End: 11-18-2024 Patient encounter procedure Jimmie Poole MD Work Phone: Hematology/Oncology Start: 11-18-2024 End: 11-18-2024 Telephone encounter Amber CASE Hematology/Oncology Comment on above: Social Work Services Start: 11-18-2024 End: 11-18-2024 ambulatory Lab/[facility] Work Phone: Hematology/Oncology Comment on above: 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); 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) Start: 11-13-2024 End: 11-14-2024 Telephone encounter Jimmie Poole MD Work Phone: Hematology/Oncology Comment on above: Patient Question Start: 11-11-2024 End: 11-11-2024 Telephone encounter Tessa Spring MD Work Phone: General Surgery Comment on above: Patient Question Start: 11-10-2024 End: 11-12-2024 Refill Samer Letha Spring MD Work Phone: General Surgery Comment on above: Refill Request Start: 11-08-2024 End: 11-08-2024 Telephone encounter Tessa Spring MD Work Phone: General Surgery Comment on above: Pouncing Lathe Operator - O ther; Returning Patient's Call Start: 11-08-2024 Non-patient / Non-visit Dr. Naun BATISTA [facility] Work Phone: Start: 11-07-2024 End: 11-08-2024 Evaluation and management of inpatient Dr. Annette Mendez MD -Medical Surgical 3 Work Phone: Start: 11-07-2024 End: 11-13-2024 Telephone encounter Jimmie Poole MD Work Phone: Hematology/Oncology Comment on above: Patient Update Start: 11-07-2024 End: 11-07-2024 ambulatory Alyson Brown RN NURSE WHEAT CLEANER Comment on above: Patient Update Adenocarcinoma of ce cum (HCC) (Primary Dx) Start: 11-06-2024 End: 11-06-2024 ambulatory Treatment Rm 7 L[facility] Work Phone: Hematology/Oncology Comment on above: Adenocarcinoma of ce cum (HCC) (Primary Dx) Start: 11-05-2024 End: 11-05-2024 Patient encounter procedure Jimmie Poole MD Work Phone: Hematology/Oncology Start: 11-05-2024 End: 11-05-2024 ambulatory Lab/Port [facility] Work Phone: Hematology/Oncology Comment on above: Adenocarcinoma of ce cum (HCC) Adenocarcinoma of ce cum (HCC) (Primary Dx) Start: 10-25-2024 End: 10-25-2024 Telephone encounter Amber Heljane CASE Hematology/Oncology Comment on above: Social Work Services Start: 10-24-2024 End: 10-25-2024 Telephone encounter Tessa Spring MD Work Phone: General Surgery Comment on above: Patient Question; Ca re Coordinator - Other; Returning Patient's Call Malignant neoplasm o f cecum (HCC) (Primary Dx); RLQ abdominal pain Dilauded refill plea se. I don t want to go on vacation without it. Start: 10-24-2024 End: 10-24-2024 Office outpatient visit 25 minutes Tessa Spring MD Work Phone: General Surgery Comment on above: Malignant neoplasm o f cecum (HCC) (Primary Dx); RLQ abdominal pain; Severe protein-calorie malnutrition (HCC) Start: 10-24-2024 End: 10-25-2024 ambulatory Tessa Spring MD Work Phone: General Surgery Start: 10-23-2024 End: 10-23-2024 Emergency department patient visit Zebulun Beam MECHANIC SENIOR-C Work Phone: -Emergency Department Work Phone: Start: 10-22-2024 End: 10-24-2024 Admission to same day surgery center Tessa Spring MD Work Phone: General Surgery Comment on above: Pain Start: 10-22-2024 End: 10-24-2024 ambulatory Tessa Spring MD Work Phone: General Surgery Start: 10-21-2024 End: 10-21-2024 ambulatory [facility] Facility:[facility] Start: 10-18-2024 End: 10-18-2024 ambulatory Zebulun Beam MECHANIC SENIOR-C Work Phone: -Physical Therapy Start: 10-18-2024 End: 10-18-2024 Discharged Recurring Zebulun Beam MECHANIC SENIOR-C -Physical Therapy Work Phone: Start: 10-18-2024 Registered Recurring Zebulun Beam MECHANIC SENIOR -C -Physical Therapy Work Phone: Start: 10-15-2024 End: 10-15-2024 Telephone encounter Tessa Spring MD Work Phone: General Surgery Comment on above: Post Op; Care Coordi nator - Other; Returning Patient's Call Start: 10-11-2024 End: 10-11-2024 ambulatory Priscilla Molina [employer] Start: 10-11-2024 End: 10-11-2024 Patient encounter procedure Priscilla Molina [employer] [employer] Comment on above: Art Therapy Referral Start: 10-10-2024 End: 10-10-2024 Patient encounter procedure Jimmie Poole MD Work Phone: Hematology/Oncology Start: 10-10-2024 End: 10-11-2024 ambulatory Jimmie Poole MD Work Phone: Hematology/Oncology Comment on above: Adenocarcinoma of ce cum (HCC) (Primary Dx) Treatment Start: 10-02-2024 End: 10-09-2024 Telephone encounter Kate Castillo RN Work Phone: Hematology/Oncology Comment on above: Future Appointment Start: 10-02-2024 End: 10-02-2024 ambulatory [facility] Facility:[facility] Start: 10-02-2024 End: 10-02-2024 forepart reducer [facility] Work Phone: Hematology/Oncology Comment on above: Encounter for educat ion (Primary Dx); Adenocarcinoma of cecum (HCC) Start: 10-01-2024 End: 10-01-2024 ambulatory Shannan Washington RN [facility] Rad[facility] Comment on above: You are scheduled fo r a medport placement at [facility] on 10/10/2024 - [place] Adenocarcinoma of ce cum (HCC) (Primary Dx) Start: 10-01-2024 End: 10-01-2024 E-mail encounter from caregiver Shannan Washington RN [facility] Start: 09-30-2024 End: 09-30-2024 [facility] Facility:[facility] Start: 09-25-2024 End: 09-25-2024 Patient encounter procedure Jimmie Poole MD Work Phone: Hematology/Oncology Start: 09-25-2024 End: 09-25-2024 ambulatory Jimmie Poole MD Work Phone: Hematology/Oncology Comment on above: Adenocarcinoma of ce cum (HCC) (Primary Dx) Start: 09-25-2024 End: 09-26-2024 Telephone encounter Ellyn Zhang RN Hematology/Oncology Comment on above: Pouncing Lathe Operator - O ther (Introduction ) AVS 09/25 Start: 09-20-2024 End: 09-20-2024 [facility] Edwardo Valencia APRN.CNP Work Phone: [employer] Comment on above: Palliative care by s pecialist (Primary Dx); Cancer related pain; Severe protein-calorie malnutrition (HCC); Nonintractable epilepsy without status epilepticus, unspecified epilepsy type (HCC); Seizures (HCC); Muscular deconditioning; Failure to thrive in adult; Adenocarcinoma of cecum (HCC); Malignant neoplasm of colon, unspecified part of colon (HCC); Opioid-induced constipation; Major depressive disorder, recurrent, in partial remission Start: 09-16-2024 End: 09-16-2024 [facility] Facility:[facility] Start: 09-16-2024 End: 09-16-2024 Patient encounter procedure Tessa Spring MD Work Phone: General Surgery Comment on above: RUQ pain (Primary Dx ); Muscle spasm; Knee buckling, right; Malignant neoplasm of cecum (HCC) Start: 09-13-2024 End: 09-16-2024 Admission to same day surgery center Tessa Spring MD Work Phone: General Surgery Comment on above: Gallbladder is hydro pic Start: 09-13-2024 End: 09-13-2024 Telephone encounter Tessa Spring MD Work Phone: General Surgery Comment on above: Post Op; Care Coordi nator - Other; Returning Patient's Call Start: 09-13-2024 End: 09-16-2024 ambulatory Tessa Spring MD Work Phone: General Surgery Start: 09-13-2024 End: 09-13-[address] Qamar Smith MD -Cat Scan [facility] Work Phone: Start: 09-13-2024 End: 09-13-2024 ambulatory Qamar Smith Facility:[facility] Start: 09-04-2024 End: 09-13-2024 Evaluation and management of inpatient Dr. Qamar Smith MD -Transitional Care Unit Start: 09-04-2024 End: 09-05-2024 Telephone encounter T[facility] Comment on above: [id number] palliative car e f/u Pouncing Lathe Operator - H ospital Follow Up Start: 09-03-2024 End: 09-03-2024 Telephone encounter Olga Kennedy LPN Work Phone: [facility] Comment on above: Home Care (MD justin lowry ) Home Care (CONFIRMAT ION CALL ) Start: 08-28-2024 End: 09-04-2024 Evaluation and management of inpatient TESSA Letha SAW Facility:[facility] Start: 08-22-2024 End: 08-22-2024 Telephone encounter Kate Castillo RN Work Phone: Hematology/Oncology Comment on above: Pouncing Lathe Operator - H ospital Follow Up Start: 08-19-2024 End: 08-21-2024 Evaluation and management of inpatient RADHA MICHAEL Facility:[facility] Start: 08-17-2024 End: 08-20-2024 ambulatory Jimmie Poole MD Work Phone: Hematology/Oncology Comment on above: Pain Start: 08-14-2024 End: 08-14-2024 ambulatory [facility] Facility:[facility] Start: 08-14-2024 Encounter for other preprocedural examination CHRISTIE SÁNCHEZ [place] [facility] Start: 08-14-2024 End: 08-14-2024 ambulatory [facility] Facility:[facility] Start: 08-07-2024 End: 08-07-2024 Specialty Pharmacy Cathy Macias [facility] Comment on above: SPP Oral Oncology/he matology - Medication Refill (capecitabine) Start: 08-05-2024 End: 08-09-2024 Orders Only Tessa Spring MD Work Phone: Gastroenterology Comment on above: Malignant neoplasm o f ascending colon (HCC) (Primary Dx) Right upper quadrant abdominal pain (Primary Dx); Intra-abdominal and pelvic swelling, mass and lump, unspecified site Colostomy bag Start: 08-02-2024 End: 08-05-2024 ambulatory Adrienne Bahena Work Phone: Hematology/Oncology Comment on above: Tattoo Start: 07-31-2024 End: 07-31-2024 Patient encounter procedure Jimmie Poole MD Work Phone: Hematology/Oncology Start: 07-31-2024 End: 08-01-2024 ambulatory Jimmie Poole MD Work Phone: Hematology/Oncology Comment on above: Adenocarcinoma of ce cum (HCC) (Primary Dx) Refill Request Start: 07-24-2024 End: 07-24-2024 ambulatory UNKNOWN PROVIDER Facility:[facility] Start: 07-21-2024 End: 07-22-2024 ambulatory Jimmie Poole MD Work Phone: Hematology/Oncology Comment on above: Pain has increased f rom about a 5 to 8 in the last two days. I have been taking Tylenol but not feeling much relief. Start: 07-19-2024 End: 07-19-2024 ambulatory [facility] Facility:[facility] Start: 07-17-2024 End: 07-17-2024 Orders Only Lizzie Sanon RN [facility] Comment on above: Other intra-abdomina l and pelvic swelling, mass and lump (Primary Dx); Iron deficiency anemia secondary to inadequate dietary iron intake; Seizures (HCC); Severe protein-calorie malnutrition (HCC); Adenocarcinoma of cecum (HCC); Generalized abdominal pain Start: 07-15-2024 End: 07-15-2024 Office outpatient visit 40 minutes Tessa Spring MD Work Phone: General Surgery Comment on above: Malignant neoplasm o f cecum (HCC) Start: 07-15-2024 End: 07-15-2024 ambulatory CHRISTIE SÁNCHEZ Facility:[facility] Start: 07-11-2024 End: 07-16-2024 Orders Only Tessa Spring MD Work Phone: General Surgery Comment on above: Malignant neoplasm o f ascending colon (HCC) (Primary Dx) Right lower quadrant abdominal pain [R10.31] Patient Update Start: 07-11-2024 End: 07-11-2024 Emergency department patient visit Christie Sánchez MECHANIC SENIOR-C Work Phone: -Emergency Department Work Phone: Start: 07-04-2024 End: 07-04-2024 Telephone encounter Amber CASE Hematology/Oncology Comment on above: Social Work Services Start: 07-02-2024 End: 07-04-2024 Telephone encounter Tessa Spring MD Work Phone: General Surgery Comment on above: Patient Question; Re turning Patient's Call Right lower quadrant abdominal pain (Primary Dx) Medication Problem Start: 06-25-2024 End: 06-25-[address] Work Phone: Nutrition Therapy Start: 06-25-2024 End: 06-25-[address] Jag Lenz RD Work Phone: Nutrition Therapy Comment on above: Nutrition Assessment Start: 06-20-2024 End: 06-24-2024 Refill Jimmie Poole MD Work Phone: Hematology/Oncology Comment on above: Refill Request Start: 06-17-2024 End: 06-17-2024 Nutrition therapy Adrienne Bahena Work Phone: Hematology/Oncology Comment on above: Adenocarcinoma of ce cum (HCC) (Primary Dx); Weight loss; Severe protein-calorie malnutrition (HCC) Start: 06-17-2024 End: 06-17-2024 Patient encounter procedure Adrienne Bahena Work Phone: Hematology/Oncology Start: 06-17-2024 End: 06-17-2024 ambulatory [facility] Facility:[facility] Start: 06-13-2024 End: 06-13-2024 Specialty Pharmacy [facility] Comment on above: SPP Oral Oncology/he matology - Medication Refill (capecitabine) Start: 05-29-2024 End: 05-29-2024 Telephone encounter Jimmie Poole MD Work Phone: Hematology/Oncology Start: 05-27-2024 End: 05-27-2024 ambulatory [facility] Facility:[facility] Start: 05-24-2024 End: 05-28-2024 Telephone encounter Kate Castillo RN Work Phone: Hematology/Oncology Comment on above: Care Coordination (D ental Procedure ) Start: 05-22-2024 End: 05-22-2024 Specialty Pharmacy [facility] Comment on above: SPP Oral Oncology/he matology - Medication Refill (Capecitabine) Start: 05-13-2024 End: 05-13-2024 [facility] Start: 05-13-2024 End: 05-13-2024 Patient encounter procedure Fe Edmond APRN.CNP Work Phone: Pulmonary Medicine Comment on above: Lung nodules (Primar y Dx); Former tobacco use; Adenocarcinoma of cecum (HCC) Start: 05-07-2024 End: 05-07-2024 ambulatory Marisa SMITH Pulmonary Medicine Start: 05-06-2024 End: 05-06-2024 Patient encounter procedure Adrienne Bahena Work Phone: Hematology/Oncology Start: 05-06-2024 End: 05-06-2024 ambulatory Adrienne Bahena Work Phone: Hematology/Oncology Comment on above: Malignant neoplasm o f ascending colon (HCC) (Primary Dx) Start: 05-03-2024 End: 05-03-2024 ambulatory [facility] Start: 05-03-2024 End: 05-03-2024 Subsequent hospital visit by physician Shalonda [facility] (I-Stat) Work Phone: Cat Scan Comment on above: Lung nodules [R91.8] Start: 05-02-2024 End: 05-02-2024 Specialty Pharmacy [facility] Comment on above: SPP Oral Oncology/he matology - Medication Refill (capecitabine) Start: 05-01-2024 End: 05-02-2024 Refill Jimmie Poole MD Work Phone: Hematology/Oncology Comment on above: Refill Request Start: 04-16-2024 End: 04-16-2024 Patient encounter procedure Adrienne Josef Work Phone: Hematology/Oncology Start: 04-16-2024 End: 04-16-2024 ambulatory Adrienne Bahena Work Phone: Hematology/Oncology Comment on above: Malignant neoplasm o f ascending colon (HCC) (Primary Dx); CINV (chemotherapy-induced nausea and vomiting); Hypokalemia Start: 04-11-2024 End: 04-11-2024 Admission to same day surgery center Tessa Spring MD Work Phone: General Surgery Comment on above: RLQ abdominal pain ( Primary Dx); Severe protein-calorie malnutrition (HCC) Start: 04-11-2024 End: 04-11-2024 ambulatory TESSA SPRING Facility:[facility] Start: 04-11-2024 End: 04-11-2024 Telemedicine consultation with patient Tessa Spring MD Work Phone: General Surgery Start: 04-10-2024 End: 04-10-2024 Specialty Pharmacy [facility] Comment on above: SPP Oral Oncology/he matology - Medication Refill (capecitabine) Start: 04-08-2024 End: 04-08-2024 Patient encounter procedure Jeremiah Adame MD Work Phone: [facility] Comment on above: Gastroenteritis (Ellie akira Dx); Dehydration Start: 04-08-2024 End: 04-08-2024 Emergency department patient visit Dr. Ankit Marsh MD -Emergency Department Work Phone: Start: 04-08-2024 End: 04-08-2024 ambulatory MARY MOSS Facility:[facility] Start: 04-08-2024 End: 04-08-2024 Telephone encounter Nae Devlin Research Coordinator [facility] Provider Adult Comment on above: research follow up Start: 03-25-2024 End: 03-25-2024 Telephone encounter Tessa Spring MD Work Phone: Colorectal Surgery Comment on above: Care Coordination Start: 03-22-2024 End: 03-22-2024 ambulatory MARY MOSS Facility:[facility] Start: 03-21-2024 End: 03-21-2024 Specialty Pharmacy Cathy Macias [facility] Comment on above: SPP Oral Oncology/he matology - Medication Refill (capecitabine) Start: 03-19-2024 End: 03-19-2024 ambulatory Fe Edmond APRN.BALL THREAD MACHINE TENDER Work Phone: Pulmonary Medicine Start: 03-19-2024 End: 04-04-2024 Telephone encounter Fe Edmond APRN.BALL THREAD MACHINE TENDER Work Phone: Pulmonary Medicine Comment on above: Appointment Start: 03-15-2024 End: 03-15-2024 ambulatory TESSA SPRING Facility:[facility] Start: 03-15-2024 End: 03-15-2024 ambulatory KIMBERLYR Letha ROBINCRISTINE Facility:[facility] Start: 03-15-2024 End: 03-15-2024 Subsequent hospital [facility] Comment on above: Right lower quadrant abdominal pain [R10.31] Start: 03-07-2024 End: 03-07-2024 ambulatory KIMBERLYR Letha SPRING Facility:[facility] Start: 03-07-2024 End: 03-07-2024 Office outpatient visit 25 minutes Tessa Spring MD Work Phone: General Surgery Comment on above: RLQ abdominal pain ( Primary Dx); Right lower quadrant abdominal pain Start: 02-29-2024 End: 02-29-2024 Telephone encounter Kate Castillo RN Work Phone: Hematology/Oncology Comment on above: Future Appointment Start: 02-28-2024 End: 02-28-2024 Specialty Pharmacy Cathy Macias [facility] Comment on above: SPP Oral Oncology/he matology - Medication Refill (capecitabine) Start: 02-21-2024 End: 02-28-2024 Telephone encounter Kate Castillo RN Work Phone: Hematology/Oncology Comment on above: Care Coordination Start: 02-16-2024 End: 02-16-2024 Telephone encounter Ellyn Zhang RN Hematology/Oncology Start: 02-15-2024 End: 02-19-2024 Social Work Amber CASE Hematology/Oncology Start: 02-13-2024 End: 02-15-2024 Telephone encounter Kate Castillo RN Work Phone: Hematology/Oncology Comment on above: Care Coordination (O RAL ANTI-CANCER AGENTS EDUCATION) Future Appointment Patient Question Start: 02-12-2024 End: 02-13-2024 Telephone encounter Jimmie Poole MD Work Phone: Hematology/Oncology Comment on above: Patient Question Start: 02-09-2024 End: 06-17-2024 Refill Jimmie Poole MD Work Phone: Hematology/Oncology Comment on above: Refill Request Start: 02-07-2024 End: 02-07-2024 ambulatory Christie Sánchez [facility] Facility:[facility] Start: 02-05-2024 End: 02-05-2024 [facility] Start: 02-05-2024 End: 02-05-2024 Patient encounter procedure Cathy [facility] Comment on above: SPP Oral Oncology/he matology - Treatment Referral (capecitabine); Insurance Authorization (No PA needed) Start: 02-03-2024 End: 02-03-2024 Home visit Yulia Xie RN Work Phone: [facility] Comment on above: SN AGENCY DC W VISIT Start: 02-02-2024 End: 02-02-2024 Home visit Joe Williamson RN Work Phone: [facility] Comment on above: CARE COORDINATION PT DISC DC WO VISIT Start: 02-01-2024 End: 02-01-2024 ambulatory Jimmie Poole MD Work Phone: Hematology/Oncology Comment on above: Malignant neoplasm o f ascending colon (HCC) Start: 02-01-2024 End: 02-01-2024 Patient encounter procedure Jimmie Poole MD Work Phone: Hematology/Oncology Start: 02-01-2024 End: 02-01-2024 Home visit Montserrat Yeager STEEL UNLOADER Work Phone: [facility] Comment on above: STEEL UNLOADER UNMADE VISIT Start: 01-31-2024 End: 02-02-2024 Telephone encounter Tessa Spring MD Work Phone: General Surgery Comment on above: pain at surgry site Start: 01-31-2024 End: 01-31-2024 Home visit Montserrat Yeager STEEL UNLOADER Work Phone: [facility] Comment on above: STEEL UNLOADER UNMADE VISIT Start: 01-29-2024 End: 01-29-2024 ambulatory FE EDMOND Facility:[facility] Start: 01-29-2024 End: 01-29-2024 Patient encounter procedure Fe Edmond SIX PACK LOADER OPERATOR.BALL THREAD MACHINE TENDER Work Phone: Pulmonary Medicine Comment on above: Multiple lung nodule s (Primary Dx); Former tobacco use; Adenocarcinoma of cecum (HCC) Start: 01-26-2024 End: 01-26-2024 Telephone encounter Montserrat Yeager STEEL UNLOADER Work Phone: [facility] Comment on above: Home Care (Unmade PT visit ) Start: 01-26-2024 End: 01-26-2024 ambulatory TESSA SPRING Facility:[facility] Start: 01-26-2024 End: 01-26-2024 Subsequent hospital visit by physician Shalonda [facility] (I-Stat) Work Phone: Cat Scan Comment on above: Intra-abdominal and pelvic swelling, mass and lump, unspecified site [R19.00] Start: 01-26-2024 End: 01-26-2024 Home visit Montserrat Yeager STEEL UNLOADER Work Phone: [facility] Comment on above: STEEL UNLOADER UNMADE VISIT SN ROUTINE Start: 01-23-2024 End: 01-23-2024 Home visit Montserrat Yeager STEEL UNLOADER Work Phone: [facility] Comment on above: STEEL UNLOADER ROUTINE Start: 01-19-2024 End: 01-23-2024 Telephone encounter Tessa Spring MD Work Phone: Colorectal Surgery Comment on above: Patient Update Start: 01-19-2024 End: 01-19-2024 Home visit Shelby Brown PT Work Phone: [facility] Comment on above: PT ROUTINE SN ROUTINE Start: 01-18-2024 End: 01-18-2024 Telephone encounter Tesas Spring MD Work Phone: Hematology/Oncology Comment on above: New Patient Start: 01-18-2024 End: 01-18-2024 Patient encounter procedure Samekiera Spring MD Work Phone: General Surgery Comment on above: Malignant neoplasm o f ascending colon (HCC) (Primary Dx); Intra-abdominal and pelvic swelling, mass and lump, unspecified site Start: 01-18-2024 End: 01-18-2024 ambulatory Gi [facility] Comment on above: Abdominal Mass Start: 01-16-2024 End: 01-16-2024 Home visit Dash Leonard PT Work Phone: [facility] Comment on above: PT ROUTINE Start: 01-13-2024 End: 01-13-2024 Home visit Shelby Brown PT Work Phone: [facility] Comment on above: PT EVAL Start: 01-11-2024 End: 01-11-2024 Home visit Pricila Peace RN Work Phone: [facility] Comment on above: SN SOC Start: 01-11-2024 End: 01-11-2024 Telephone encounter Pricila Grage RN Work Phone: [facility] Comment on above: Home Care (Medicatio n interaction ) Start: 01-10-2024 End: 01-10-2024 Telephone encounter Tessa Spring MD Work Phone: General Surgery Comment on above: Nausea (vomitting); Pouncing Lathe Operator - Other; Returning Patient's Call Home Care (Spoke wit h patients friend and SOC confirmed for 01/11/24 ) Start: 01-09-2024 End: 01-09-2024 Orders Only Tessa Spring MD Work Phone: General Surgery Comment on above: Perforated appendix (Primary Dx) Start: 01-08-2024 End: 01-08-2024 Telephone encounter Olga Maria Work Phone: [facility] Comment on above: Home Care (CONFIRMAT ION CALL) Home Care () Start: 01-04-2024 End: 11-06-2024 Telephone encounter Mary Moss CNP Work Phone: [facility] Start: 01-03-2024 End: 01-08-2024 Evaluation and management of inpatient TESSA SPRING Facility:[facility] Start: 12-28-2023 End: 12-28-2023 ambulatory LISBETH Cynthia ALFORD Facility[facility] Start: 12-28-2023 End: 12-28-2023 Admission to [place] [id number] Work Phone: Pre Anesthesia Start: 12-28-2023 End: 12-28-2023 Anesthesia consultation [place] [address] Work Phone: Pre Anesthesia Comment on above: Pre-op evaluation (P rimary Dx); Seizures (HCC); Iron deficiency anemia secondary to inadequate dietary iron intake; Anxiety and depression; Inflammation of colonic mucosa; Failure to thrive in adult Start: 12-28-2023 End: 12-28-2023 Preprocedural examination done [place] [address] Work Phone: [facility] Work Phone: Start: 12-28-2023 End: 12-28-2023 ambulatory TESSA SPRING Facility:[facility] Comment on above: Perforated appendix (Primary Dx) Start: 12-28-2023 [facility] Start: 12-27-2023 End: 12-28-2023 Telephone encounter Tessa Spring MD Work Phone: Colorectal Surgery Comment on above: Patient Question; Re turning Patient's Call; Pouncing Lathe Operator - Other Start: 12-26-2023 amb[address] [facility] y:[facility] Start: 12-19-2023 End: 12-19-2023 ambulatory [facility] Facility:[facility] Start: 12-18-2023 End: 12-18-2023 ambulatory [facility] Facility:[facility] Start: 12-18-2023 End: 12-18-2023 Patient encounter procedure Tessa Spring MD Work Phone: General Surgery Comment on above: Right lower quadrant abdominal abscess (HCC) (Primary Dx); Perforated appendix; Adult failure to thrive Perforated appendix (Primary Dx) Excessive physiologi c tremor (Primary Dx); Focal epilepsy (HCC); Abnormal thyroid blood test; Essential tremor; Hypothyroidism, unspecified type Start: 12-15-2023 End: 12-15-2023 ambulatory [facility] Start: 12-11-2023 End: 12-11-2023 ambulatory [facility] Facility:[facility] Start: 12-04-2023 End: 12-04-2023 ambulatory Amish Xavier APRN.CNP Work Phone: Pulmonary Medicine Start: 11-08-2023 Telephone encounter Rossana Brooke PA-C Work Phone: Gastroenterology [place] Comment on above: Appointment Start: 10-24-2023 ambulatory Marisa Monaco Pulmonar y Medicine Start: 10-23-2023 End: 10-23-2023 Patient encounter procedure Christie Hylton MD Work Phone: Neurology Comment on above: Focal epilepsy (HCC) (Primary Dx); Drug-induced tremor Start: 10-17-2023 ambulatory Marisa Monaco Pulmonar y Medicine Start: 10-11-2023 End: 10-11-2023 Patient encounter procedure Cisco Gurrola MD Work Phone: Infectious Disease Comment on above: Intra-abdominal absc ess (HCC) (Primary Dx); Encounter for screening for human immunodeficiency virus (HIV) Start: 10-11-2023 End: 10-11-2023 Office outpatient new 60 minutes Roseanna Maldonado MD Work Phone: Gastroenterology Comment on above: Inflammatory bowel d isease (Primary Dx); Perforated appendix; Severe protein-calorie malnutrition (HCC) Start: 10-10-2023 ambulatory Amish Xavier SIX PACK LOADER OPERATOR.BALL THREAD MACHINE TENDER Work Phone: Pulmonary Medicine Start: 10-09-2023 ambulatory Marisa Monaco Pulmonar y Medicine Start: 10-03-2023 End: 10-03-2023 Patient encounter procedure Jayla Fung MD Work Phone: General Surgery Comment on above: Encounter for fittin g and adjustment of non-vascular catheter (Primary Dx) Start: 10-02-2023 ambulatory Marisa Monaco Pulmonar y Medicine Start: 09-27-2023 Telephone encounter Mary bee Work Phone: Internal Medicine Start: 09-20-2023 ambulatory Merlyn lockett APRN.BALL THREAD MACHINE TENDER Work Phone: Pulmonary Medicine Start: 09-08-2023 Telephone encounter Christie silva MD Work Phone: Neurology Comment on above: medication concern ( Medication concern) Start: 09-07-2023 ambulatory Priscilla Vines Research Coordinator Neurology Comment on above: Epilepsy Center Rese arch Study Start: 09-07-2023 E-mail encounter jacqueline m caregiver Priscilla Vines Research Coordinator Neurology Start: 08-04-2023 Telephone encounter Christie silva MD Work Phone: Neurology Comment on above: Medication Concern ( Depakote) Start: 08-02-2023 Telephone encounter Christie silva MD Work Phone: Neurology Comment on above: Orders (Lab) Start: 08-01-2023 End: 08-01-2023 ambulatory Ashly Lange SIX PACK LOADER OPERATOR.BALL THREAD MACHINE TENDER Work Phone: Neurology Comment on above: Focal epilepsy (HCC) Start: 08-01-2023 End: 08-01-2023 Telemedicine consultation with patient Ashly Lange APRN.BALL THREAD MACHINE TENDER Work Phone: Neurology Start: 07-31-2023 Telephone encounter Christie silva MD Work Phone: Neurology Comment on above: Seizures Start: 05-08-2023 Refill Christie Hylton MD Work Phone: Neurology Comment on above: Refill Request Start: 01-25-2023 End: 01-25-2023 ambulatory [facility] Work Phone: Start: 01-25-2023 End: 01-25-2023 Patient encounter procedure [facility] Work Phone: Start: 01-18-2023 Telephone encounter Christie silva MD Work Phone: Neurology Comment on above: Other (Lab orders fa xed) Start: 01-18-2023 End: 01-18-2023 ambulatory [facility] Work Phone: Start: 01-18-2023 End: 01-18-2023 Patient encounter procedure [facility] Work Phone: Start: 10-28-2022 End: 11-01-2022 ambulatory UNKNOWN PROVIDER Facility:[facility] Start: 10-28-2022 End: 10-28-2022 Patient encounter procedure Sheila Nagelnitesh DMD Work Phone: [facility] Comment on above: Arrived Start: 09-23-2022 End: 09-23-2022 ambulatory UNKNOWN PROVIDER Facility:[facility] Start: 07-21-2022 End: 07-21-2022 ambulatory Amish Beavercami SIX PACK LOADER OPERATOR.BALL THREAD MACHINE TENDER Work Phone: Neurology Comment on above: Focal epilepsy (HCC) Start: 07-21-2022 End: 07-21-2022 Telemedicine consultation with patient Amish Cole SIX PACK LOADER OPERATOR.BALL THREAD MACHINE TENDER Work Phone: [facility] Start: 07-20-2022 Telephone encounter Christie silva MD Work Phone: Neurology Comment on above: Seizures Start: 10-11-2021 Telephone encounter Christie silva MD Work Phone: Neurology Comment on above: Outside Lab Results Start: 10-11-2021 End: 10-11-2021 Patient encounter procedure [facility] Start: 09-16-2021 Telephone encounter Christie silva MD Work Phone: Neurology Comment on above: Outside Labs Results ([facility]) Start: 09-15-2021 Telephone encounter Christie silva MD Work Phone: Neurology Comment on above: Seizures Start: 07-05-2021 End: 07-05-2021 ambulatory Christie Hylton MD Work Phone: Neurology Comment on above: Abnormal CBC (Primar y Dx); 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); Encounter for monitoring long-term anticonvulsant therapy Start: 07-05-2021 End: 07-05-2021 Telemedicine consultation with patient Christie Hylton MD Work Phone: [facility] Start: 07-02-2021 End: 07-02-2021 Patient encounter procedure [facility] Procedures Date Procedure Procedure Detail Performing Clinician Start: 11-21-2024 Lipid 1996 panel - S massiel or Plasma Tessa Spring MD Work Phone: Start: 11-20-2024 CT angiography of ch est with contrast Zebulun Beam MECHANIC SENIOR-C Work Phone: Start: 11-20-2024 Plain chest X-ray Zebul un Beam MECHANIC SENIOR-C Work Phone: Start: 11-20-2024 Estimated creatinine clearance Zebulun Beam MECHANIC SENIOR-C Work Phone: Start: 11-18-2024 Blood count complete auto&auto difrntl wbc Jimmie Maryh MD Work Phone: Start: 11-08-2024 Estimated creatinine clearance Zebulun Beam MECHANIC SENIOR-C Work Phone: Start: 11-07-2024 End: 11-07-2024 Iadna-dna/rna gi pthgn multiplex probe tq 6-11 Zebulun Beam MECHANIC SENIOR-C Work Phone: Start: 11-07-2024 MRI of abdomen with contrast Zebulun Beam MECHANIC SENIOR-C Work Phone: Start: 11-07-2024 Clostridium difficil e detection Zebulun Beam MECHANIC SENIOR-C Work Phone: Start: 11-07-2024 Nucleic acid assay Zebu reji Beam MECHANIC SENIOR-C Work Phone: Start: 11-07-2024 Estimated creatinine clearance Zebulun Beam MECHANIC SENIOR-C Work Phone: Start: 11-07-2024 Computed tomography of abdomen and pelvis with intravenous contrast Zebulun Beam MECHANIC SENIOR-C Work Phone: Start: 11-05-2024 Blood count complete auto&auto difrntl wbc Jimmie Poole MD Work Phone: Start: 09-13-2024 Computed tomography of abdomen and pelvis with contrast Zebulun Beam MECHANIC SENIOR-C Work Phone: Start: 09-12-2024 Estimated creatinine clearance Zebulun Beam MECHANIC SENIOR-C Work Phone: Start: 08-28-2024 Antibody screen SAMER N NELLI Comment on above: Order Comment: Speci men Type: BLOOD SPECIMENOrdering Facility: [facility] Address: [address] [place] [address] Performed By: #### T SCR ####EMMANUEL BLOOD BANKIA [id number] [address] Start: 08-14-2024 Antibody screen CHRISTIE SÁNCHEZ Comment on above: Order Comment: Speci men Type: BLOOD SPECIMENOrdering Facility: [facility] Address: [address] [place] [address] Performed By: #### T [id number] ####CC MAIN BLOOD BANKCLIA [id number] [facility] [id number] [place] [address] Start: 07-30-2024 Gen seq analys yousif org/hemtolmphoid joseph 51/> gen Jimmie Poole MD Work Phone: Start: 07-11-2024 Ct abdomen & pelvis w/contrast material Tessa Spring MD Work Phone: Start: 07-11-2024 Urnls dip stick/tabl et reagent auto microscopy Zebulun Beam MECHANIC SENIOR-C Work Phone: Start: 07-11-2024 Estimated creatinine clearance Zebulun Beam MECHANIC SENIOR-C Work Phone: Start: 12-28-2023 Antibody screen TESSA AIKEN Comment on above: Order Comment: Speci men Type: BLOOD SPECIMEN Ordering Facility: [facility] Address: [address] [place] [address] Performed By: #### T [id number] #### [facility] CLIA [id number] [address], [place] [id number] [place] [address] 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 Start: 11-21-2029 Lipid panel Lipid Screening [facility] Start: 11-23-2027 Diabetes Screening Diabetes Screening [facility] Start: 11-22-2027 Diabetes Screening Diabetes Screening [facility] Start: 11-19-2027 Diabetes Screening Diabetes Screening [facility] Start: 11-06-2027 Diabetes Screening Diabetes Screening [facility] Start: 09-03-2027 Diabetes Screening Diabetes Screening [facility] Start: 08-21-2027 Diabetes Screening Diabetes Screening [facility] Start: 07-20-2027 Diabetes Screening Diabetes Screening [facility] Start: 06-18-2027 Diabetes Screening Diabetes Screening [facility] Start: 05-28-2027 Diabetes Screening Diabetes Screening [facility] Start: 05-06-2027 Diabetes Screening Diabetes Screening [facility] Start: 04-16-2027 Diabetes Screening Diabetes Screening [facility] Start: 03-22-2027 Diabetes Screening Diabetes Screening [facility] Start: 02-14-2027 Diabetes Screening Diabetes Screening [facility] Start: 02-08-2027 HPV TESTING HPV TESTING [facility] Start: 02-08-2027 PAP TESTING PAP TESTING [facility] Start: 02-08-2027 Screening for malignant neoplasm of cervix [facility] Start: 01-07-2027 Diabetes Screening Diabetes Screening [facility] Start: 12-18-2026 Diabetes Screening Diabetes Screening [facility] Start: 09-25-2026 Diabetes Screening Diabetes Screening [facility] Start: 09-19-2026 Diabetes Screening Diabetes Screening [facility] Start: 09-18-2026 Diabetes Screening Diabetes Screening [facility] Start: 05-19-2025 End: 05-19-2025 Patient encounter procedure Cat Scan Comment on above: yearly Chest CT yearly C/M/N Start: 01-29-2025 End: 01-29-2025 ambulatory 01/29/2025 4:00 PM [facility] Hematology/Oncology [address] [place] [address] Wstr, Lab/Port [facility] [address] [place] [address] DC/CADD* Hematology/Oncology Comment on above: DC/CADD* Start: 01-27-2025 End: 01-27-2025 ambulatory 01/27/2025 10:00 AM [facility] Hematology/Oncology [address] [place] [address] Q2WK FOLFOX(PORT)LAB&OV 01/24* [place] Hematology/Oncology Comment on above: Q2WK FOLFOX(PORT)LAB&OV 01/24* [place] Start: 01-24-2025 End: 01-24-2025 ambulatory Hematology/Oncology Comment on above: (SO)CBC/CMP(S)/MG(S)(PORT)/OV TODAY* OV(PORT)CHEMO 01/27* ZULEMA Start: 01-15-2025 End: 01-15-2025 ambulatory 01/15/2025 4:00 PM EDT Infusion Center Hematology/Oncology [address] [place] [address] Wstr, Lab/Port [place] [address] [place] [address] DC/CADD* Hematology/Oncology Comment on above: DC/CADD* Start: 01-13-2025 End: 01-13-2025 ambulatory 01/13/2025 10:00 AM EDT Infusion Center Hematology/Oncology [address] [place] [address] Q2WK FOLFOX(PORT)LAB&OV 01/10* [place] Hematology/Oncology Comment on above: Q2WK FOLFOX(PORT)LAB&OV 01/10* [place] Start: 01-10-2025 End: 01-10-2025 ambulatory Hematology/Oncology Comment on above: (SO)CBC/CMP(S)/MG(S)(PORT)/OV TODAY* OV(PORT)CHEMO 01/13* ZULEMA Start: 01-01-2025 End: 01-01-2025 ambulatory 01/01/2025 4:00 PM EDT Infusion Center Hematology/Oncology [address] [place] [address] Wstr, Lab/Port [place] [facility] [address] [place] [address] DC/CADD* Hematology/Oncology Comment on above: DC/CADD* Start: 12-30-2024 End: 12-30-2024 ambulatory 12/30/2024 11:00 AM EDT Infusion Center Hematology/Oncology [address] [place] [address] Q2WK FOLFOX(PORT)LAB&OV 12/27* [place] Hematology/Oncology Comment on above: Q2WK FOLFOX(PORT)LAB&OV 12/27* [place] Start: 12-27-2024 End: 12-27-2024 ambulatory Hematology/Oncology Comment on above: (SO)CBC/CMP(S)/MG(S)(PORT)/OV TODAY* OV(PORT)CHEMO 12/30* ZULEMA Start: 12-20-2024 End: 12-20-2024 ambulatory 12/20/2024 4:00 PM EDT Infusion Center Hematology/Oncology [address] [place] [address] Wstr, Lab/Port [place] [address] [place] [address] DC/CADD* Hematology/Oncology Comment on above: DC/CADD* Start: 12-18-2024 End: 12-18-2024 ambulatory Hematology/Oncology Comment on above: Q2WK FOLFOX(PORT)LAB&OV 12/17* DC/CADD* Start: 12-17-2024 End: 12-17-2024 ambulatory Hematology/Oncology Comment on above: CBC/CMP/MG/QMO CEA(PORT)OV TODAY* CEA MO NTHLY OV(PORT)CHEMO 12/18* ZULEMA Start: 12-16-2024 End: 12-16-2024 ambulatory 12/16/2024 8:00 AM [facility] Infusion Center Hematology/Oncology [address] [place] [address] Q2WK FOLFOX(PORT)LAB&OV 12/13* [place] Hematology/Oncology Comment on above: Q2WK FOLFOX(PORT)LAB&OV 12/13* [place] Start: 12-13-2024 End: 12-13-2024 ambulatory Hematology/Oncology Comment on above: (SO)CBC/CMP(S)/MG(S)(PORT)/OV TODAY* OV(PORT)CHEMO 12/16* ZULEMA Start: 12-06-2024 End: 12-06-2024 ambulatory Hematology/Oncology Comment on above: DC/CADD* Pall med Start: 12-04-2024 End: 12-04-2024 ambulatory Hematology/Oncology Comment on above: Q2WK FOLFOX(PORT)LAB&OV 12/03* DC/CADD* Start: 12-03-2024 End: 12-03-2024 ambulatory Hematology/Oncology Comment on above: CBC/CMP/MG/QMO CEA(PORT)OV TODAY* CEA MO NTHLY OV(PORT)CHEMO 12/04* ZULEMA Start: 12-02-2024 End: 12-02-2024 ambulatory 12/02/2024 9:00 AM EDT Infusion Center Hematology/Oncology [address] [place] [address] Q2WK FOLFOX(PORT)LAB&OV 11/29* [place] Hematology/Oncology Comment on above: Q2WK FOLFOX(PORT)LAB&OV 11/29* [place] Start: 11-29-2024 End: 11-29-2024 ambulatory Hematology/Oncology Comment on above: DC/CADD* (SO)CBC/CMP(S)/MG(S) (PORT)/OV TODAY* OV(PORT)CHEMO 12/02* A BRAMOVICH Start: 11-27-2024 End: 11-27-2024 ambulatory 11/27/2024 10:30 AM EDT Infusion Center Hematology/Oncology [address] [place] [address] Q2WK FOLFOX(PORT)LAB&OV 11/26* Hematology/Oncology Comment on above: Q2WK FOLFOX(PORT)LAB&OV 11/26* Start: 11-26-2024 End: 11-26-2024 ambulatory Hematology/Oncology Comment on above: CBC/CMP/MG(PORT)OV TODAY* CEA MONTHLY MON HOLIDAY Start: 11-25-[address] [facility] Start: 11-22-2024 End: 11-22-2024 ambulatory 11/22/2024 4:00 PM EDT Infusion Center Hematology/Oncology [address] [place] [address] Wstr, Lab/Port [place] [facility] [address] [place] [address] DC/CADD* Hematology/Oncology Comment on above: DC/CADD* Start: 11-21-2024 End: 11-21-2024 Admission to same day surgery center 11/21/2024 4:15 PM EDT [facility] Surgery [address] [place] [address] Tessa Spring MD [address] [place] [address] review 11/07 review MRI/CT General Surgery Comment on above: review 11/07 review MRI/CT Start: 11-21-2024 End: 11-21-2024 ambulatory Hematology/Oncology Comment on above: DC/CADD* Pall med Start: 11-21-2024 End: 11-21-2024 L hrt cath w/njx l ventriculography img s&i LEFT HEART CATH INTRAPROCEDURAL INJECT W/ LEFT VENTRICULOGRAPHY IMAGE SUPERVISION/INTERPRETAT ION ST elevation myocardial infarction (STEMI), unspecified artery (HCC) 11/21/2024 2:13 AM EDT [facility] [employer] Start: 11-21-2024 [facility] Start: 11-21-2024 Catheterization of left heart [facility] Start: 11-20-2024 Referral to c consultant [facility] Start: 11-20-2024 [facility] Start: 11-20-2024 Catheterization of left heart [facility] Start: 11-20-2024 Chemotherapy care management [facility] Start: 11-20-2024 End: 11-20-2024 ambulatory 11/20/2024 9:30 AM EDT Infusion Center Hematology/Oncology [address] [place] [address] Q2WK FOLFOX(PORT)LAB&OV 11/19* Hematology/Oncology Comment on above: Q2WK FOLFOX(PORT)LAB&OV 11/19* Start: 11-19-2024 End: 11-19-2024 ambulatory Hematology/Oncology Comment on above: CBC/CMP/MG(PORT)OV TODAY* CEA MONTHLY OV(PORT)CHEMO 11/20* ABRAMOVICH Q2WK FOLFOX(PORT)LAB &OV 11/18* [place] Start: 11-18-2024 End: 11-18-2024 ambulatory Hematology/Oncology Comment on above: (SO)CBC/CMP(S)/MG(S)(PORT)/OV TODAY* OV(PORT)CHEMO 11/19* ABRAMOVICH Start: 11-14-2024 End: 11-14-2024 ambulatory 11/14/2024 4:00 PM EDT Infusion Center Hematology/Oncology [address] [place] [address] Wstr, Lab/Port [place] [facility] [address] [place] [address] DC/CADD* Hematology/Oncology Comment on above: DC/CADD* Start: 11-12-2024 End: 11-12-2024 ambulatory 11/12/2024 8:30 AM EDT [facility] Hematology/Oncology [address] [place] [address] Q2WK FOLFOX(PORT)LAB&OV 11/11* Hematology/Oncology Comment on above: Q2WK FOLFOX(PORT)LAB&OV 11/11* Start: 11-11-2024 End: 11-11-2024 Admission to same day surgery center 11/11/2024 10:30 AM EDT - 11/11/2024 12:00 PM EDT Surgery [facility] Radiology [address] [place] [address] [place], Radiology PROVIDER TO SCHEDULE RAD AT [place] INSERTION PORT VENOUS ACCESS ADULT [facility] Radiology Comment on above: INSERTION PORT VENOUS ACCESS ADULT Start: 11-11-2024 End: 11-11-2024 Insj tunneled ctr vad w/subq port age 4 yr/> INSERTION PORT VENOUS ACCESS ADULT Adenocarcinoma of cecum (HCC) 11/11/2024 10:30 AM EDT [facility] IR Start: 11-11-2024 Subsequent hospital visit by physician 11/11/2024 10:30 AM EDT Hospital Encounter [facility] Radiology [address] [place] [address] [place] [address] [facility] , [address] [place] [address] Adenocarcinoma of cecum (HCC) [C18.0] [facility] Radiology Comment on above: Adenocarcinoma of cecum (HCC) [C18.0] Start: 11-11-2024 End: 11-11-2024 ambulatory Hematology/Oncology Comment on above: CBC/CMP/MG(PORT)OV TODAY* CEA MONTHLY OV(PORT)LAB EARLY/CH EMO 11/12* ZULEMA Start: 11-09-2024 Complete blood count [facility] Start: 11-08-2024 Patient discharge [facility] Start: 11-08-2024 End: 11-08-2024 ambulatory Hematology/Oncology Comment on above: DC/CADD* HYDRATION* Start: 11-07-2024 Application of intermittent pneumatic compression device [facility] Start: 11-07-2024 Chemotherapy care management [facility] Start: 11-07-2024 Following clinical pathway protocol [facility] Start: 11-07-2024 Venous catheter care management [facility] Start: 11-07-2024 Assessment of risk of venous thromboembolism [facility] Start: 11-07-2024 Enteric precautions [facility] Start: 11-07-2024 Inhalation therapy procedure [facility] Start: 11-07-2024 Insertion of catheter into peripheral vein [facility] Start: 11-07-2024 Providing care according to standard [facility] Start: 11-07-2024 Provision of activity privileges [facility] Start: 11-07-2024 [facility] Start: 11-07-2024 MRI of abdomen with contrast MRI Abd WITH and W/O Contrast [facility] Start: 11-07-2024 Verification routine [facility] Start: 11-07-2024 Admission procedure [facility] Start: 11-07-2024 Hospital admission, emergency, from emergency room, medical nature [facility] Start: 11-07-2024 Chemotherapy care management [facility] Start: 11-07-2024 Consultation [facility] Start: 11-07-2024 Patient referral to dietitian [facility] Start: 11-06-2024 End: 11-06-2024 ambulatory 11/06/2024 9:30 AM T Infusion Center Hematology/Oncology [address] [place] [address] START Q2WK FOLFOX(PORT)LAB&OV 11/06* Hematology/Oncology Comment on above: START Q2WK FOLFOX(PORT)LAB&OV 11/06* Start: 11-05-2024 End: 11-05-2024 ambulatory Hematology/Oncology Comment on above: CBC/CMP/QMO CEA(PORT)OV TODAY* CEA MONTH LY OV(PORT)CHEMO 11/06* ZULEMA Start: 10-31-2024 End: 10-31-2024 ambulatory 10/31/2024 4:00 PM EDT Infusion Center Hematology/Oncology [address] [place] [address] Wstr, Lab/Port [place] [facility] [address] [place] [address] DC/CADD* Hematology/Oncology Comment on above: DC/CADD* Start: 10-29-2024 End: 10-29-2024 ambulatory 10/29/2024 9:00 AM EDT Infusion Center Hematology/Oncology [address] [place] [address] Q2WK FOLFOX(PORT)LAB&OV 10/28* Hematology/Oncology Comment on above: Q2WK FOLFOX(PORT)LAB&OV 10/28* Start: 10-28-2024 End: 10-28-2024 ambulatory Hematology/Oncology Comment on above: CBC/CMP/MG(PORT)OV TODAY* CEA MONTHLY OV(PORT)LAB EARLY/CH EMO 10/29* ZULEMA Start: 10-24-2024 End: 10-24-2024 Admission to same day surgery center 10/24/2024 11:30 AM EDT [facility] Surgery [address] [id number] Tessa Spring MD [address] [place] [address] f/u General Surgery Comment on above: f/u Start: 10-23-2024 [facility] Start: 10-21-2024 End: 10-21-2024 Admission to same day surgery center 10/21/2024 11:00 AM EDT - 10/21/2024 12:00 PM EDT Surgery [place] [address] Romelia Gary MD [address] [place] [address] INSERTION PORT VENOUS ACCESS ADULT SP [facility] RADIOLOGY Comment on above: INSERTION PORT VENOUS ACCESS ADULT Start: 10-21-2024 End: 10-21-2024 Insj tunneled ctr vad w/subq port age 4 yr/> INSERTION PORT VENOUS ACCESS ADULT Adenocarcinoma of cecum (HCC) 10/21/2024 11:00 AM EDT SP IR Start: 10-21-2024 Subsequent hospital visit by physician 10/21/2024 11:00 AM EDT Hospital Encounter SP [facility]VENT[facility] [place] [place] [address] Romelia Gary MD [address] [place] [address] Adenocarcinoma of cecum (HCC) [C18.0] SP INTERVENTIONAL RADIOLOGY Comment on above: Adenocarcinoma of cecum (HCC) [C18.0] Start: 10-17-2024 End: 10-17-2024 ambulatory 10/17/2024 4:00 PM EDT Infusion Center Hematology/Oncology [address] [place], [place] [address] Wstr, Lab/Port [place] [facility] [address] [place] [address] DC/CADD* Hematology/Oncology Comment on above: DC/CADD* Start: 10-15-2024 End: 10-15-2024 ambulatory Hematology/Oncology Comment on above: STRAIGHTBACK CBC/CMP/START Q2WK FOLFOX(P ORT) CBC/CMP(PORT)START Q 2WK FOLFOX* Start: 10-10-2024 End: 10-10-2024 ambulatory 10/10/2024 2:00 PM EDT Visit (SP) Office Hematology/Oncology [address] [place] [address] Jimmie Poole MD [address] [place] [address] OV-PT REQUESTED TO SEE PROV BEFORE STARTING TREATMENT Hematology/Oncology Comment on above: OV-PT REQUESTED TO SEE PROV BEFORE START ING TREATMENT Start: 10-10-2024 End: 10-10-2024 Admission to same day surgery center 10/10/2024 12:00 PM EDT - 10/10/2024 1:30 PM EDT [facility] Radiology [address] [place] [address] [place] [address] [facility] [address] [place] [address] INSERTION PORT VENOUS ACCESS ADULT [facility] Radiology Comment on above: INSERTION PORT VENOUS ACCESS ADULT Start: 10-10-2024 End: 10-10-2024 Insj tunneled ctr vad w/subq port age 4 yr/> INSERTION PORT VENOUS ACCESS ADULT Adenocarcinoma of cecum (HCC) 10/10/2024 12:00 PM EDT ME IR Start: 10-10-2024 Subsequent hospital visit by physician 10/10/2024 12:00 PM EDT Hospital Encounter [facility] Radiology [address] [place] [address] [place] [address] [address] , [address] [place] [address] Adenocarcinoma of cecum (HCC) [C18.0] [facility] Radiology Comment on above: Adenocarcinoma of cecum (HCC) [C18.0] Start: 10-02-2024 End: 10-02-2024 ambulatory Hematology/Oncology Comment on above: CHEMO ED CHEMO ED- FOLFOX* Start: 10-01-2024 End: 12-31-2024 CBC panel - Blood by Automated count COMPLETE BLOOD COUNT Lab STAT Adenocarcinoma of cecum (HCC) Expected: 10/01/2024, Expires: 12/31/2024 [facility] Work Phone: Comment on above: Expected: 10/01/2024, Expires: Start: 10-01-2024 End: 12-31-2024 PT panel - Platelet poor plasma by Coagulation assay PROTHROMBIN TIME Lab STAT Adenocarcinoma of cecum (HCC) Expected: 10/01/2024, Expires: 12/31/2024 [facility] Comment on above: Expected: 10/01/2024, Expires: Start: 09-30-2024 End: 09-30-2024 Specialty Pharmacy 09/30/2024 9:15 AM EDT Specialty Pharmacy [facility] [id number] [place] [address] Pharmacist, [facility] 1 [facility] [place] [address] Refill - Capecitabine (21DS) - Cycle resume? -(confirm copay is ok at each fill (may need to pursue BioPlus if copay is high) Holding due to surgery OV 09/25 [facility] Comment on above: Refill - Capecitabine (21DS) - Cycle res ume? -(confirm copay is ok at each fill (may need to pursue BioPlus if copay is high) Holding due to surgery OV 09/25 Start: 09-26-2024 End: 09-26-2024 Specialty Pharmacy 09/26/2024 8:00 AM EDT Specialty Pharmacy [facility] [id number] [place] [address] Pharmacist, [facility]tygroup [address] [place] [phone] Refill - Capecitabine (21DS) - Cycle resume? -(confirm copay is ok at each fill (may need to pursue BioPlus if copay is high) Holding due to surgery OV 09/25 [facility] Comment on above: Refill - Capecitabine (21DS) - Cycle res ume? -(confirm copay is ok at each fill (may need to pursue BioPlus if copay is high) Holding due to surgery OV 09/25 Start: 09-25-2024 End: 09-25-2024 ambulatory 09/25/2024 2:20 PM EDT Visit (SP) Office Hematology/Oncology [address], [place] [id number] Jimmie Poole MD [address], [place] [id number] OV* Hematology/Oncology Comment on above: OV* Start: 09-20-2024 End: 09-20-2024 ambulatory 09/20/2024 11:00 AM EDT [facility] [address] [place] [address] [address] [place], [place] [id number] Edwardo Valencia APRN.BALL [employer]READ MACHINE TENDER [address] [place] [phone] call 09/15 to see if discharged from snf 09/12/24 [facility] Comment on above: [phone] call 09/15 to see if discharged fr om snf 09/12/24 mp Start: 09-16-2024 End: 09-16-2024 Patient encounter procedure 09/16/2024 10:30 AM EDT Office Visit General Surgery [address] [place] [address] Tessa Spring MD [address] [place] [address] s/p 6/ ex lap, mass resection General Surgery Comment on above: s/p 6/ ex lap, mass resection Start: 09-14-2024 Development of care plan [facility] Start: 09-13-2024 Patient discharge [facility] Start: 09-13-2024 Referral to general surgeon [facility] Start: 09-13-2024 Referral to service [facility] Start: 09-13-2024 [facility] Start: 09-11-2024 End: 09-11-2024 Specialty Pharmacy 09/11/2024 8:00 AM EDT Specialty Pharmacy [facility] [address] [place] [address] Pharmacist, [facility] [address] [place] [phone] Refill - Capecitabine (21DS) - Cycle resume? -(confirm copay is ok at each fill (may need to pursue BioPlus if copay is high) Holding due to surgery [facility] Comment on above: Refill - Capecitabine (21DS) - Cycle res ume? -(confirm copay is ok at each fill (may need to pursue BioPlus if copay is high) Holding due to surgery Start: 09-10-2024 Seizure precautions [facility] Start: 09-09-2024 End: 09-09-2024 [facility] Start: 09-09-2024 End: 09-09-2024 Patient encounter procedure 09/09/2024 10:30 AM EDT Office Visit General Surgery [address] [address] Tessa Spring MD [address] [place] [address] s/p 6/4 ex lap, mass resection General Surgery Comment on above: s/p 6/4 ex lap, mass resection Start: 09-05-2024 Development of care plan [facility] Start: 09-05-2024 Contact precautions [facility] Start: 09-05-2024 Developing a treatment plan [facility] Start: 09-04-2024 Provision of activity privileges [facility] Start: 09-04-2024 End: 09-04-2024 [facility] Start: 09-04-2024 Admission procedure [facility] Start: 09-04-2024 Introduction of urinary catheter [facility] Start: 09-04-2024 Measuring intake and output [facility] Start: 09-04-2024 Patient referral to dietitian [facility] Start: 09-04-2024 Referral to occupational therapist [facility] Start: 09-04-2024 Referral to service [facility] Start: 09-04-2024 Vital signs measurements [facility] Start: 09-04-2024 Verification routine [facility] Start: 08-28-2024 End: 08-28-2024 Admission to same day surgery center 08/28/2024 8:30 AM EDT - 08/28/2024 11:45 AM EDT Surgery [facility] Operating Room [address] [place] [address] Tessa Spring MD [address] [place] [address] EXPLORATORY LAPAROTOMY ADULT [facility] Operating Room Comment on above: EXPLORATORY LAPAROTOMY ADULT Start: 08-28-2024 End: 08-28-2024 Exploratory laparotomy celiotomy w/wo biopsy spx EXPLORATORY LAPAROTOMY ADULT Malignant neoplasm of ascending colon (HCC) 08/28/2024 8:30 AM EDT [facility] Start: 08-28-2024 End: 08-28-2024 OPEN EXC/DSTRJ INTRA-ABDL, RETROPERITONEAL, TUMOR/SPRING BENDER 5 CM OR LESS OPEN EXC/DSTRJ INTRA-ABDL, RETROPERITONEAL, TUMOR/SPRING BENDER 5 CM OR LESS Malignant neoplasm of ascending colon (HCC) 08/28/2024 8:30 AM EDT [facility] Start: 08-28-2024 End: 08-28-2024 Subsequent hospital visit by physician [facility] Operating Room Comment on above: Malignant neoplasm of ascending colon (H CC) [C18.2] Refill - Capecitabin e (21DS) - Cycle resume? -(confirm copay is ok at each fill (may need to pursue BioPlus if copay is high) Holding due to surgery Start: 08-14-2024 End: 08-14-2024 Anesthesia consultation 08/14/2024 2:00 PM EDT PAT Pre Anesthesia [address] [place] [address] 1, [facility] [place] [address] [place] [address] pre - op: 08/28 ex lap Pre Anesthesia Comment on above: pre - op: 08/28 ex lap Start: 08-14-2024 End: 08-14-2024 Patient encounter procedure 08/14/2024 1:00 PM EDT Appointment Cat Scan [address] [place] [address] CT ABD/PEL W IVCON Cat Scan Comment on above: CT ABD/PEL W IVCON Start: 08-07-2024 End: 08-07-2024 Specialty Pharmacy 08/07/2024 7:45 AM EDT Specialty Pharmacy [facility] [employer] [place] [id number] [place] [address] Pharmacist, [facility]ty[facility] [address] [place] [address] [place] [address] Refill - Capecitabine (21DS) - C05/21 -(confirm copay is ok at each fill (may need to pursue BioPlus if copay is high) [facility] Comment on above: Refill - Capecitabine (21DS) - C05/21 -( confirm copay is ok at each fill (may need to pursue BioPlus if copay is high) Start: 08-05-2024 End: 08-05-2024 Patient encounter procedure 08/05/2024 9:30 AM EDT Office Visit General Surgery [address] [address] Tessa Spring MD [address] [place] [address] est. discuss plan / next steps General Surgery Comment on above: est. discuss plan / next steps Start: 07-31-2024 End: 07-31-2024 ambulatory 07/31/2024 8:30 AM EDT Visit (SP) Office Hematology/Oncology [address] [place], [place] [id number] Jimmie Poole MD [address] [place], [place] [phone] OV/BIOPSY 07/24* Hematology/Oncology Comment on above: OV/BIOPSY 07/24* Start: 07-24-2024 End: 07-24-2024 Admission to same day surgery center 07/24/2024 9:30 AM EDT - 07/24/2024 10:30 AM EDT Surgery [facility] [address] [place] [address] [place] [address] [place] [address] BIOPSY, ABDOMINAL MASS, PERCUTANEOUS NEEDLE [facility] Comment on above: BIOPSY, ABDOMINAL MASS, PERCUTANEOUS NEE DLE Start: 07-24-2024 End: 07-24-2024 Bx abdl/retroperitoneal mass prq needle BIOPSY, ABDOMINAL MASS, PERCUTANEOUS NEEDLE Other intra-abdominal and pelvic swelling, mass and lump 07/24/2024 9:30 AM EDT [facility] Start: 07-24-2024 Subsequent hospital visit by physician 07/24/2024 9:30 AM EDT Hospital Encounter [facility] [address] [place] [address] [place] [address] [place] [id number] Other intra-abdominal and pelvic swelling, mass and lump [R19.09] [facility] Comment on above: Other intra-abdominal and pelvic swellin g, mass and lump [R19.09] Start: 07-19-2024 End: 07-19-2024 ambulatory Christian Rodrigues [facility] Laboratory Comment on above: CBC/CMP(S)* 4WK OV/EARLY LABS* Start: 07-18-2024 End: 07-18-2024 Specialty Pharmacy 07/18/2024 8:15 AM EDT Specialty Pharmacy [facility] [address] [place] [address] [address] [place] [address] Pharmacist, [facility] [address] [place] [address] Refill - Capecitabine (21DS) - C04/30 -(confirm copay is ok at each fill (may need to pursue [employer]Plus if copay is high) rfts 07/18 [facility] Comment on above: Refill - Capecitabine (21DS) - C04/30 -( confirm copay is ok at each fill (may need to pursue BioPlus if copay is high) rfts 07/18 Start: 07-17-2024 End: 10-16-2024 CBC panel - Blood by Automated count COMPLETE BLOOD COUNT Lab STAT Other intra-abdominal and pelvic swelling, mass and lump Iron deficiency anemia secondary to inadequate dietary iron intake Seizures (HCC) Severe protein-calorie malnutrition (HCC) Adenocarcinoma of cecum (HCC) Expected: 07/17/2024, Expires: 10/16/2024 [facility] Work Phone: Comment on above: Expected: 07/17/2024, Expires: Start: 07-17-2024 End: 10-16-2024 PT panel - Platelet poor plasma by Coagulation assay PROTHROMBIN TIME Lab STAT Other intra-abdominal and pelvic swelling, mass and lump Iron deficiency anemia secondary to inadequate dietary iron intake Seizures (HCC) Severe protein-calorie malnutrition (HCC) Adenocarcinoma of cecum (HCC) Generalized abdominal pain Expected: 07/17/2024, Expires: 10/16/2024 [facility] Comment on above: Expected: 07/17/2024, Expires: Start: 07-17-2024 End: 07-17-2024 ambulatory [facility] Laboratory Comment on above: CBC/CMP(S)* 4WK OV/EARLY LABS* Refill - Capecitabin e (21DS) - C04/30 -(confirm copay is ok at each fill (may need to pursue BioPlus if copay is high) Start: 07-11-2024 End: 07-11-2024 Patient encounter procedure Cat Scan Comment on above: CT ABD/PEL W IVCON Start: 07-11-2024 [facility] Start: 07-11-2024 Chemotherapy care management [facility] Start: 06-26-2024 End: 06-26-2024 Specialty Pharmacy 06/26/2024 8:15 AM EDT Specialty Pharmacy [facility] Celly [address] [address] Pharmacist, [facility] [address] [place] [address] [place] [address] Refill - Capecitabine (21DS) - C 4/2 (confirm copay is ok at each fill (may need to pursue BioPlus if copay is high) lvm 3/31ge. [facility] Comment on above: Refill - Capecitabine (21DS) - C 4/2 (co nfirm copay is ok at each fill (may need to pursue BioPlus if copay is high) lvm 3/31ge. Start: 06-25-2024 End: 06-25-2024 Nutrition therapy 06/25/2024 10:00 AM EDT Education Nutrition Therapy [address] [place] [address] Jag Lenz, RD [address] [place] [address] Weight loss [R63.4] Nutrition Therapy Comment on above: Weight loss [R63.4] Start: 06-20-2024 End: 06-20-2024 Specialty Pharmacy 06/20/2024 8:00 AM EDT Specialty Pharmacy [facility] [address] [place] [address] Pharmacist, [facility] [address] [place] [address] [place] [address] Refill - Capecitabine (21DS) - C 4/ (confirm copay is ok at each fill (may need to pursue BioPlus if copay is high) Check qty when billing rx, having dental work- hold off for 1 week, June 26 new start date, [facility] Comment on above: Refill - Capecitabine (21DS) - C 4/ (co nfirm copay is ok at each fill (may need to pursue BioPlus if copay is high) Check qty when billing rx, having dental work- hold off for 1 week, June 26 new start date, Start: 06-17-2024 End: 06-17-2024 [facility] Laboratory Comment on above: (SO)CMP(S)(SO)CBC(S)* 6WK OV/EARLY LABS* 6WK(SO)CMP(S)(SO)CBC (S)* Start: 06-12-2024 End: 06-12-2024 Specialty Pharmacy [facility] Specialty Pharma cy Comment on above: Refill - Capecitabine (21DS) - C 06/19 (c onfirm copay is ok at each fill (may need to pursue BioPlus if copay is high) - ok to send refill once dose reduced 1500 mg/1000 mg Refill - Capecitabin e (21DS) - C 06/19 (confirm copay is ok at each fill (may need to pursue BioPlus if copay is high) Start: 05-27-2024 End: 05-27-2024 [facility] Laboratory Comment on above: (SO)CMP(S)(SO)CBC(S)* 3WK(SO)CMP(S)(SO)CBC (S)* Start: 05-25-2024 Medicare Annual Wellness Visit Medicare Annual Wellness Visit [facility] Start: 05-20-2024 End: 05-20-2024 Specialty Pharmacy 05/20/2024 11:00 AM EST Specialty [facility]acy [facility] [address] [place] [address] Drive [address] [place], [place] [phone] Pharmacist, [facility] [address] [place] [address] [place] [address] Refill - Capecitabine (21DS) - C 3/5 (confirm copay is ok at each fill (may need to pursue BioPlus if copay is high) - ok to send refill once dose reduced 1500 mg/1000 mg received [facility] Comment on above: Refill - Capecitabine (21DS) - C 3/ (co nfirm copay is ok at each fill (may need to pursue BioPlus if copay is high) - ok to send refill once dose reduced 1500 mg/1000 mg received Start: 05-13-2024 End: 05-13-2024 Patient encounter procedure 05/13/2024 12:00 PM EST Office Visit Pulmonary Medicine [address] [place] [address] Fe Edmond APRN.BALL THREAD MACHINE TENDER [address] [place] [address] 3 MONTH F/U Pulmonary Medicine Comment on above: 3 MONTH F/U Start: 05-06-2024 End: 05-06-2024 ambulatory Hematology/Oncology Comment on above: (SO)CBC/CMP(S)* 3WK OV/EARLY LABS* Start: 05-06-2024 End: 05-06-2024 Specialty Pharmacy 05/06/2024 8:45 AM EST Specialty Pharmacy [facility] [address] [place], [place] [id number] [place] [address] Pharmacist, [facility] [address] [place] [address] [place] [address] Refill - Capecitabine (21DS) - C 2/12 (confirm copay is ok at each fill (may need to pursue BioPlus if copay is high) - ok to send refill once dose reduced 1500 mg/1000 mg received lvm 2/6 [facility] Comment on above: Refill - Capecitabine (21DS) - C 2/12 (c onfirm copay is ok at each fill (may need to pursue BioPlus if copay is high) - ok to send refill once dose reduced 1500 mg/1000 mg received lvm 05/02 Start: 05-03-2024 End: 05-03-2024 Patient encounter procedure 05/03/2024 11:00 AM EST Appointment Cat Scan [address] [place] [address] 3 MONTH SCAN Cat Scan Comment on above: 3 MONTH SCAN Start: 05-01-2024 End: 05-01-2024 Specialty Pharmacy 05/01/2024 7:45 AM EST Specialty Pharmacy [facility] [address] [place] [place] [address] [address] [place] [address] Pharmacist, [facility] [address] [place] [address] [place] [address] Refill - Capecitabine (21DS) - confirm cycle start (C~05/21 - confirm copay is ok at each fill (may need to pursue BioPlus if copay is high) [facility] Comment on above: Refill - Capecitabine (21DS) - confirm c ycle start (C~05/21 - confirm copay is ok at each fill (may need to pursue BioPlus if copay is high) Start: 04-29-2024 End: 04-29-2024 Patient encounter procedure Cat Scan Comment on above: 3 MONTH SCAN 3 MONTH F/U Start: 04-27-2024 End: 04-18-2025 CT Chest WO contrast CT CHEST WO IVCON Radiology Routine Lung nodules Expected: 04/27/2024 (Approximate), Expires: 04/18/2025 [facility] Work Phone: Comment on above: Expected: 04/27/2024 (Approximate), Expi res: 04/18/2025 Start: 04-22-2024 End: 04-22-2024 Admission to same day surgery center 04/22/2024 4:00 PM EST [facility] General Surgery [address] [facility] [address] [place] [address] Tessa Spring MD [address] [place] [address] Est: CT f/u RLQ Abd pain, fluid collection/ possible abscess General Surgery Comment on above: Est: CT f/u RLQ Abd pain, fluid collecti on/ possible abscess Start: 04-19-2024 End: 04-19-2024 ambulatory [facility] Laboratory Comment on above: LABS* OV/EARLY LABS* Start: 04-11-2024 End: 04-11-2024 Patient encounter procedure 04/11/2024 10:30 AM EST Office Visit General Surgery [address] [facility] [place] [address] Tessa Spring MD [address] [place] [address] Est: CT f/u RLQ Abd pain, fluid collection/ possible abscess General Surgery Comment on above: Est: CT f/u RLQ Abd pain, fluid collecti on/ possible abscess Start: 04-10-2024 End: 04-10-2024 Specialty Pharmacy 04/10/2024 7:45 AM EST Specialty Pharmacy [facility] [address] [place], [place] 549424[address] [place] [address] Pharmacist, [facility] [address] [place] [address] Refill - Capecitabine (21DS) - confirm cycle start (C~04/17 - confirm copay is ok at each fill (may need to pursue BioPlus if copay is high) [facility] Comment on above: Refill - Capecitabine (21DS) - confirm c ycle start (C~04/17 - confirm copay is ok at each fill (may need to pursue BioPlus if copay is high) Start: 04-08-2024 [facility] Start: 03-27-2024 Advance Directive Discussion Advance Directive Discussion [facility] Start: 03-22-2024 End: 03-22-2024 ambulatory [facility] Laboratory Comment on above: CBC/CMP* 1MO OV/EARLY LABS/ON CAPECITABINE* (SO)CBC/CMP(S)* Start: 03-21-2024 End: 03-21-2024 [facility] Comment on above: Refill - Capecitabine (21DS) - confirm c ycle start (C~03/27) --- confirm copay is ok at each fill (may need to pursue BioPlus if copay is high) - Refill - Capecitabin e (21DS) - confirm cycle start (C~03/27) - confirm copay is ok at each fill (may need to pursue BioPlus if copay is high) Start: 03-19-2024 End: 03-19-2024 ambulatory Christian Rodrigues [facility] Laboratory Comment on above: CBC/CMP* 1MO OV/EARLY LABS* Start: 03-15-2024 End: 03-15-2024 Patient encounter procedure Cat Scan Comment on above: CT ABD/PEL W IVCONRight lower quadrant a bdominal pain [R10.31]Specify enteric contrast choice: Start: 03-12-2024 End: 03-12-2024 Nutrition therapy 03/12/2024 10:00 AM EST Education Nutrition Therapy [address] [place] [address] Jag Lenz, RD [address] [place] [address] Malignant neoplasm of ascending colon (HCC) [C18.2] Nutrition Therapy Comment on above: Malignant neoplasm of ascending colon (H CC) [C18.2] Start: 02-23-2024 End: 02-23-2024 Specialty Pharmacy 02/23/2024 8:00 AM EST Specialty Pharmacy [facility] [address] [place], [place] [id number] [address] Pharmacist, [facility] [address] [place] [address] Refill - Capecitabine (21DS) - confirm cycle start (C~03/05) --- confirm copay is ok at each fill (may need to pursue BioPlus if copay is high) [facility] Comment on above: Refill - Capecitabine (21DS) - confirm c ycle start (C~03/05) --- confirm copay is ok at each fill (may need to pursue BioPlus if copay is high) Start: 02-15-2024 End: 02-15-2024 ambulatory 02/15/2024 11:00 AM EST Results Only Christian [facility] Draw Station [address] [place] [address] Christian [facility] Draw Station Start: 02-13-2024 End: 02-13-2024 Nutrition therapy 02/13/2024 11:00 AM EST Education Nutrition Therapy [address] [place] [address] Jag Lenz, RD [address] [place] [address] Malignant neoplasm of ascending colon (HCC) [C18.2] Nutrition Therapy Comment on above: Malignant neoplasm of ascending colon (H CC) [C18.2] Start: 02-07-2024 Advance Directive Discussion Advance Directive Discussion [facility] Start: 02-07-2024 Screening for osteoporosis Bone Density Screening [facility] Start: 02-01-2024 End: 02-01-2024 ambulatory 02/01/2024 10:40 AM EST Visit (SP) Office Hematology/Oncology [address] [place] [address] [place] [address] [place], [place] [phone] Malignant neoplasm of ascending colon (HCC) [C18.2] Hematology/Oncology Comment on above: Malignant neoplasm of ascending colon (H CC) [C18.2] Start: 01-29-2024 End: 01-29-2024 Patient encounter procedure 01/29/2024 10:00 AM EST Office Visit Pulmonary Medicine [address] [place] [address] Fe Edmond APRN.BALL THREAD MACHINE TENDER [address] [place] [address] Pulmonary Medicine Start: 01-26-2024 End: 01-26-2024 Patient encounter procedure 01/26/2024 8:40 AM EDT Appointment Cat Scan [address] [place], [place] [id number] CT chest wo IV con intra-abd and pelvic swelling Cat Scan Comment on above: CT chest wo IV con intra-abd and pelvic swelling Start: 01-25-2024 End: 01-25-2024 Patient encounter procedure 01/25/2024 1:45 PM EDT Office Visit General Surgery [address] [place] [address] Tessa Spring MD [address] [place] [address] s/p diagnostic lap converted to open ileocecectomy General Surgery Comment on above: s/p diagnostic lap converted to open ile ocecectomy Start: 01-18-2024 End: 01-18-2024 Patient encounter procedure 01/18/2024 10:00 AM EDT Office Visit General Surgery [address] [place] [address] Tessa Spring MD [address] [place] [phone] s/p diagnostic lap converted to open ileocecectomy General Surgery Comment on above: s/p diagnostic lap converted to open ile ocecectomy Start: 01-03-2024 End: 01-03-2024 Admission to same [facility] 01/03/2024 12:15 PM EDT - 01/03/2024 2:45 PM EDT Surgery [facility] Operating Room [id number] [place] [address] Tessa Spring MD [address] [place] [address] LAPAROSCOPY DIAGNOSTIC ABDOMEN, PERITONEUM AND OMENTUM [facility] Operating Room Comment on above: LAPAROSCOPY DIAGNOSTIC ABDOMEN, PERITONE UM AND OMENTUM Start: 01-03-2024 End: 01-03-2024 Laparoscopic appendectomy LAPAROSCOPIC APPENDECTOMY ADULT Perforated appendix 01/03/2024 12:15 PM EDT [facility] Start: 01-03-2024 End: 01-03-2024 Laps abd prtm&omentum dx w/wo spec br/wa spx LAPAROSCOPY DIAGNOSTIC ABDOMEN, PERITONEUM AND OMENTUM Perforated appendix 01/03/2024 12:15 PM EDT [facility] OR Start: 01-03-2024 Subsequent hospital visit by physician 01/03/2024 12:15 PM EDT Hospital Encounter [facility] Operating Room [address] [place], [place] [phone] Tessa Spring MD [address] [place] [address] Perforated appendix [K35.32] [facility] Operating Room Comment on above: Perforated appendix [K35.32] Start: 01-03-2024 End: 01-03-2024 Unlisted laparoscopy px intestine xcp rectum LAPAROSCOPIC ENTEROTOMY FOR EXPLORATION OF SMALL BOWEL Perforated appendix 01/03/2024 12:15 PM EDT [facility] OR Start: 01-03-2024 End: 01-03-2024 Admission to same day surgery center 01/03/2024 9:45 AM EDT - 01/03/2024 12:15 PM EDT Surgery [facility] Operating Room [address] [place] [address] Tessa Spring MD [address] [place] [address] LAPAROSCOPY DIAGNOSTIC ABDOMEN, PERITONEUM AND OMENTUM [facility] Operating Room Comment on above: LAPAROSCOPY DIAGNOSTIC ABDOMEN, PERITONE UM AND OMENTUM Start: 01-03-2024 End: 01-03-2024 Laparoscopic appendectomy LAPAROSCOPIC APPENDECTOMY ADULT Perforated appendix 01/03/2024 9:45 AM EDT [facility] Start: 01-03-2024 End: 01-03-2024 Laps abd prtm&omentum dx w/wo spec br/wa spx LAPAROSCOPY DIAGNOSTIC ABDOMEN, PERITONEUM AND OMENTUM Perforated appendix 01/03/2024 9:45 AM EDT [facility] OR Start: 01-03-2024 Subsequent hospital visit by physician 01/03/2024 9:45 AM EDT Hospital Encounter [facility] Operating Room [address] [place] [address] Tessa Spring MD [address] [place] [address] Perforated appendix [K35.32] [facility] Operating Room Comment on above: Perforated appendix [K35.32] Start: 01-03-2024 End: 01-03-2024 Unlisted laparoscopy px intestine xcp rectum LAPAROSCOPIC ENTEROTOMY FOR EXPLORATION OF SMALL BOWEL Perforated appendix 01/03/2024 9:45 AM EDT [facility] Start: 12-30-2023 DIABETES SCREEN DIABETES SCREEN [facility] Start: 12-30-2023 Diabetes Screening Diabetes Screening [facility] Start: 12-18-2023 End: 03-18-2024 CBC panel - Blood by Automated count COMPLETE BLOOD COUNT Lab Routine Perforated appendix Expected: 12/18/2023, Expires: 03/18/2024 [facility] Work Phone: Comment on above: Expected: 12/18/2023, Expires: Start: 12-18-2023 End: 03-18-2024 Comprehensive metabolic 2000 panel - Serum or Plasma COMPREHENSIVE METABOLIC PANEL Lab Routine Perforated appendix Expected: 12/18/2023, Expires: 03/18/2024 [facility] Comment on above: Expected: 12/18/2023, Expires: Start: 12-18-2023 End: 03-18-2024 Prealbumin [Mass/volume] in Serum or Plasma PREALBUMIN Lab Routine Perforated appendix Expected: 12/18/2023, Expires: 03/18/2024 [facility] Comment on above: Expected: 12/18/2023, Expires: Start: 12-18-2023 End: 12-18-2023 Patient encounter procedure 12/18/2023 8:00 AM EDT Office Visit [facility] [address] [place] [address] Pipe Estevez MD [address] [place] [address] Focal epilepsy [facility] Comment on above: Focal epilepsy Start: 11-26-2023 Covid-19 Vaccine () Covid-19 Vaccine () [facility] Start: 11-26-2023 Covid-19 Vaccine (5 - 2024-25 season) Covid-19 Vaccine ( season) [facility] Start: 11-26-[address] [facility] Start: 11-08-2023 End: 11-08-2023 Patient encounter procedure 11/08/2023 9:40 AM EDT Office Visit Gastroenterology [facility] [address] [place] [phone] Rossana Brooke PA-C [address] [place], [place] [phone] bowel obstruction non op managed, drain removal [facility] Comment on above: bowel obstruction non op managed, drain removal Start: 10-23-2023 End: 01-22-2024 CBC panel - Blood by Automated count COMPLETE BLOOD COUNT Lab Routine Focal epilepsy (HCC) Expected: 10/23/2023, Expires: 01/22/2024 [facility] Comment on above: Expected: 10/23/2023, Expires: Start: 10-23-2023 End: 01-22-2024 Comprehensive metabolic 2000 panel - Serum or Plasma COMPREHENSIVE METABOLIC PANEL Lab Routine Focal epilepsy (HCC) Expected: 10/23/2023, Expires: 01/22/2024 [facility] Comment on above: Expected: 10/23/2023, Expires: Start: 10-23-2023 End: 01-22-2024 Valproate [Mass/volume] in Serum or Plasma VALPROIC ACID / DEPAKENE Lab Routine Focal epilepsy (HCC) Expected: 10/23/2023, Expires: 01/22/2024 [facility] Work Phone: Comment on above: Expected: 10/23/2023, Expires: Start: 10-23-2023 End: 01-22-2024 Valproate Free [Mass/volume] in Serum or Plasma VALPRO AC/DEPAK FREE Lab Routine Focal epilepsy (HCC) Expected: 10/23/2023, Expires: 01/22/2024 [facility] Comment on above: Expected: 10/23/2023, Expires: Start: 10-23-2023 End: 10-23-2023 Patient encounter procedure 10/23/2023 9:00 AM EDT Office Visit Neurology [address] [place] [address] Christie Hylton MD [address] [facility] [address] [place] [address] F/U; NOT RESPONDING WELL TO MEDS (HAVING TREMORS) Neurology Comment on above: F/U; NOT RESPONDING WELL TO MEDS (HAVING TREMORS) Start: 10-16-2023 End: 10-16-2023 Patient encounter procedure 10/16/2023 1:30 PM EDT Office Visit Colorectal Surgery [address] [place] [phone] Michael Younger MD [address] Nolvia dawson ordered Colorectal Surgery Comment on above: referral dr Nolvia dawson ordered Start: 10-12-2023 End: 10-12-2023 Patient encounter procedure [facility] CT SCAN Comment on above: Inflammatory bowel disease [K52.9] Start: 10-11-2023 End: 01-10-2024 BLOOD TB SCREEN BLOOD TB SCREEN Lab Routine Perforated appendix Expected: 10/11/2023, Expires: 01/10/2024 [facility] Comment on above: Expected: 10/11/2023, Expires: Start: 10-11-2023 End: 01-10-2024 C reactive protein [Mass/volume] in Serum or Plasma C-REACTIVE PROTEIN Lab Routine Intra-abdominal abscess (HCC) Expected: 10/11/2023, Expires: 01/10/2024 [facility] Work Phone: Comment on above: Expected: 10/11/2023, Expires: Start: 10-11-2023 End: 01-10-2024 Cobalamin (Vitamin B12) [Mass/volume] in Serum or Plasma VITAMIN B12 Lab Routine Perforated appendix Expected: 10/11/2023, Expires: 01/10/2024 [facility] Comment on above: Expected: 10/11/2023, Expires: Start: 10-11-2023 End: 01-10-2024 HIV 1+2 Ab [Presence] in Serum or Plasma by Immunoassay HIV 1/2 COMBO WITH REFLEX TO DIFFERENTIATION Lab Routine Intra-abdominal abscess (HCC) Encounter for screening for human immunodeficiency virus (HIV) Expected: 10/11/2023, Expires: 01/10/2024 [facility] Comment on above: Expected: 10/11/2023, Expires: Start: 10-11-2023 End: 01-10-2024 TPMT PHENOTYPE/ENZYME ACTIVITY TPMT PHENOTYPE/ENZYME ACTIVITY Lab Routine Perforated appendix Expected: 10/11/2023, Expires: 01/10/2024 [facility] Comment on above: Expected: 10/11/2023, Expires: Start: 10-11-2023 End: 10-11-2023 Patient encounter procedure Gastroenterology Comment on above: 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 , ilititis hospital f/u - fpc Abx R psoas abscess Start: 10-03-2023 End: 10-03-2023 Patient encounter procedure General Surgery Comment on above: hospital f/u - interval CT scan, ROCIO eleanor riley 08/2023 hospital foll ow up Start: 09-19-2023 End: 09-19-2023 Exploratory laparotomy celiotomy w/wo biopsy spx EXPLORATORY LAPAROTOMY Bowel obstruction (HCC) 09/19/2023 3:25 PM EDT [facility] Start: 08-01-2023 End: 10-31-2023 CBC panel - Blood by Automated count COMPLETE BLOOD COUNT Lab Routine Focal epilepsy (HCC) Expected: 08/01/2023, Expires: 10/31/2023 [facility] Comment on above: Expected: 08/01/2023, Expires: Start: 08-01-2023 End: 10-31-2023 Comprehensive metabolic 2000 panel - Serum or Plasma COMPREHENSIVE METABOLIC PANEL Lab Routine Focal epilepsy (HCC) Expected: 08/01/2023, Expires: 10/31/2023 [facility] Comment on above: Expected: 08/01/2023, Expires: Start: 08-01-2023 End: 10-31-2023 Valproate [Mass/volume] in Serum or Plasma VALPROIC ACID / DEPAKENE Lab Routine Focal epilepsy (HCC) Expected: 08/01/2023, Expires: 10/31/2023 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 Start: 12-25-2022 Influenza vaccination Influenza Vaccine (#1) [facility] [facility] Start: 11-25-2022 Covid-19 Vaccine ( season) Covid-19 Vacc[address] () [facility] Start: 11-25-[address] [facility] Start: 07-21-2022 End: 09-20-2022 CBC panel - Blood by Automated count CBC Lab Routine Focal epilepsy (HCC) Expected: 07/21/2022, Expires: 09/20/2022 [facility] Work Phone: Comment on above: Expected: 07/21/2022, Expires: Start: 07-21-2022 End: 09-20-2022 Comprehensive metabolic 2000 panel - Serum or Plasma COMP METABOLIC PANEL Lab Routine Focal epilepsy (HCC) Expected: 07/21/2022, Expires: 09/20/2022 [facility] Work Phone: Comment on above: Expected: 07/21/2022, Expires: 3 Start: 07-21-2022 End: 09-20-2022 Valproate [Mass/volume] in Serum or Plasma VALPROIC A/DEPAKENE Lab Routine Focal epilepsy (HCC) Expected: 07/21/2022, Expires: 09/20/2022 [facility] Work Phone: Comment on above: Expected: 07/21/2022, Expires: 3 Start: 07-21-2022 End: 09-20-2022 Valproate Free [Mass/volume] in Serum or Plasma VALPRO AC/DEPAK FREE Lab Routine Focal epilepsy (HCC) Expected: 07/21/2022, Expires: 09/20/2022 [facility] Work Phone: Comment on above: Expected: 07/21/2022, Expires: 3 Start: 11-25-[address] 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 Start: 04-26-2021 COVID-19 VACCINE (4 - Booster for Pfizer series) COVID-19 VACCINE (4 - Booster for Pfizer series) [facility] Start: 2019 RSV Vaccine (1 - 1-dose 60+ series) RSV Vaccine (1 - 1-dose 60+ series) [facility] Start: 2019 RSV Vaccine (1 - Risk 60-74 years 1-dose series) RSV Vaccine (1 - Risk 60-74 years 1-dose series) [facility] Start: 01-04-2017 End: 01-04-2017 Appointment Appointment [facility] [employer] Work Phone: Start: 12-21-2016 End: 12-21-2016 Colonoscopy flx dx w/collj spec when pfrmd Colonoscopy [facility] [employer] Work Phone: Start: 12-21-2016 End: 12-21-2016 Follow Up Appt Other Follow Up Appt Other [facility] [employer] Work Phone: Start: 12-21-2016 End: 12-21-2016 Appointment Appointment [facility] [employer] Work Phone: Start: 12-21-2016 End: 12-21-2016 Diagnostic colonoscopy Colonoscopy [facility] [employer] Work Phone: Start: 12-21-2016 End: 12-21-2016 Follow Up Appt Other Follow Up Appt Other [facility] [employer] Work Phone: Start: 2009 Pneumococcal Vaccine: 50+ (1 of 1 - PCV) Pneumococcal Vaccine: 50+ (1 of 1 - PCV) [facility] Start: 2009 Shingles (RZV) Vaccine (1 of 2) Shingles (RZV) Vaccine (1 of 2) [facility] Start: 2009 SHINGRIX VACCINE (1 of 2) SHINGRIX VACCINE (1 of 2) [facility] Start: 02-07-2004 Cholesterol [Mass/volume] in Serum or Plasma Cholesterol [facility] Start: 02-07-2004 COLOGUARD (FIT-DNA) COLOGUARD (FIT-DNA) [facility] Start: 02-07-[address] [facility] Start: 02-07-2004 COLORECTAL CANCER SCREENING COLORECTAL CANCER SCREENING [facility] Start: 02-07-[address] [facility] Start: 02-07-2004 FECAL OCCULT BLOOD FECAL OCCULT BLOOD [facility] Start: 02-07-2004 Lipid 1996 panel - Serum or Plasma Lipid Screening [facility] Start: 02-07-2004 Lipid panel Lipid Screening [facility] Start: 02-07-2004 [address] L[address] SCREEN [facility] Start: 02-07-2004 Screening for malignant neoplasm of colon [facility] Start: 02-07-[address] [facility] Start: [address] [facility] Start: 1999 Screening for malignant neoplasm of breast [facility] Start: 1989 HPV TESTING HPV TESTING [facility] Start: 02-07-1980 PAP TESTING PAP TESTING [facility] Start: 02-07-1980 Screening for malignant neoplasm of cervix Pap Smear [facility] Start: 1978 Pneumococcal Vaccine: 50+ (1 of 2 - PCV) Pneumococcal Vaccine: 50+ (1 of 2 - PCV) [facility] Start: 1978 Shingrix Vaccine (1 of 2) Shingrix Vaccine (1 of 2) [facility] Start: [address] [facility] Start: 1977 HEPATITIS C SCREENING HEPATITIS C SCREENING [facility] Start: 1977 Hepatitis C screening [facility] Start: 1977 HIV SCREENING HIV SCREENING [facility] Start: 1977 HIV screening HIV Screening [facility] Start: 1974 HIV screening HIV Test [facility] Start: 1965 Pneumococcal vaccination Pneumococcal Vaccine (1 of 2 - PCV) [facility] Start: 1965 Pneumococcal Vaccine: 65+ (1 of 2 - PCV) Pneumococcal Vaccine: 65+ (1 of 2 - PCV) [facility] Start: 1959 Screening for malignant neoplasm of colon Colonoscopy [facility] Anion gap in Serum o r Plasma [facility] Bilirubin measuremen t, urine [facility] Bilirubin measuremen t, urine [facility] BUN/Creatinine ratio [facility] Calcium [Mass/volume ] in Serum or Plasma [facility] Carbon dioxide, tota l [Moles/volume] in Central venous blood [facility] End: 09-25-2025 Carcinoembryonic Ag [Mass/volume] in Serum or Plasma CARCINOEMBRYONIC ANTIGEN Lab Routine Adenocarcinoma of cecum (HCC) Once per month for 12 Occurrences starting 09/25/2024 until 09/25/2025 [facility] Comment on above: Once per month for 12 Occurrences starti ng 09/25/2024 until 09/25/2025 Carcinoembryonic Ag [Mass/volume] in Serum or Plasma CARCINOEMBRYONIC ANTIGEN Lab Routine Adenocarcinoma of cecum (HCC) 11/05/2024 10:20 AM EDT [facility] Work Phone: Carcinoembryonic Ag [Mass/volume] in Serum or Plasma CARCINOEMBRYONIC ANTIGEN Lab Routine Adenocarcinoma of cecum (HCC) 11/18/2024 2:26 PM EDT [facility] Work Phone: End: 02-12-2025 CBC W Auto Differential panel - Blood COMPLETE BLOOD COUNT AND DIFFERENTIAL Lab STAT Malignant neoplasm of ascending colon (HCC) Once per month for 6 Occurrences starting 02/14/2024 until 02/12/2025 [facility] Work Phone: Comment on above: Once per month for 6 Occurrences startin g 02/14/2024 until 02/12/2025 End: 09-25-2025 CBC W Auto Differential panel - Blood COMPLETE BLOOD COUNT AND DIFFERENTIAL Lab STAT Adenocarcinoma of cecum (HCC) Every other week for 25 Occurrences starting 09/25/2024 until 09/25/2025 [facility] Work Phone: Comment on above: Every other week for 25 Occurrences star ting 09/25/2024 until 09/25/2025 End: 02-12-2025 Comprehensive metabolic 2000 panel - Serum or Plasma COMPREHENSIVE METABOLIC PANEL Lab STAT Malignant neoplasm of ascending colon (HCC) Once per month for 6 Occurrences starting 02/14/2024 until 02/12/2025 [facility] Comment on above: Once per month for 6 Occurrences startin g 02/14/2024 until 02/12/2025 End: 09-25-2025 Comprehensive metabolic 2000 panel - Serum or Plasma COMPREHENSIVE METABOLIC PANEL Lab STAT Adenocarcinoma of cecum (HCC) Every other week for 25 Occurrences starting 09/25/2024 until 09/25/2025 [facility] Comment on above: Every other week for 25 Occurrences star ting 09/25/2024 until 09/25/2025 Creatinine [Mass/vol ume] in Serum or Plasma [facility] End: 04-06-2025 CT Abdomen and Pelvis W contrast IV CT ABD/PEL W IVCON Radiology Routine Right lower quadrant abdominal pain 1 Occurrences starting 03/07/2024 until 04/06/2025 [facility] Work Phone: Comment on above: 1 Occurrences starting 03/07/2024 until 04/06/2025 CT Abdomen and Pelvi s W contrast IV CT ABD/PEL W IVCON Radiology Routine Right lower quadrant abdominal pain 03/15/2024 2:51 PM EST [facility] Work Phone: End: 08-01-2025 CT Abdomen and Pelvis W contrast IV CT ABD/PEL W IVCON Radiology Routine Right lower quadrant abdominal pain 1 Occurrences starting 07/02/2024 until 08/01/2025 [facility] Work Phone: Comment on above: 1 Occurrences starting 07/02/2024 until 08/01/2025 End: 09-04-2025 CT Abdomen and Pelvis W contrast IV CT ABD/PEL W IVCON Radiology Routine Right upper quadrant abdominal pain Intra-abdominal and pelvic swelling, mass and lump, unspecified site 1 Occurrences starting 08/05/2024 until 09/04/2025 [facility] Work Phone: Comment on above: 1 Occurrences starting 08/05/2024 until 09/04/2025 CT Chest WO contrast CT CHEST WO IVCON Radiology Routine Intra-abdominal and pelvic swelling, mass and lump, unspecified site 01/26/2024 8:54 AM EDT [facility] Work Phone: End: 02-16-2025 CT Chest WO contrast CT CHEST WO IVCON Radiology Routine Intra-abdominal and pelvic swelling, mass and lump, unspecified site 1 Occurrences starting 01/18/2024 until 02/16/2025 [facility] Work Phone: Comment on above: 1 Occurrences starting 01/18/2024 until 02/16/2025 CT Chest WO contrast CT CHEST WO IVCON Radiology Routine Lung nodules 05/03/2024 11:36 AM EST [facility] Work Phone: End: 06-12-2025 CT Chest WO contrast CT CHEST WO IVCON Radiology Routine Lung nodules 1 Occurrences starting 05/13/2024 until 06/12/2025 [facility] Work Phone: Comment on above: 1 Occurrences starting 05/13/2024 until 06/12/2025 End: 11-09-2024 CT Small bowel W contrast PO and W contrast IV CT ENTEROGRAPHY W IVCON Radiology Routine Inflammatory bowel disease Perforated appendix 1 Occurrences starting 10/11/2023 until 11/09/2024 [facility] Work Phone: Comment on above: 1 Occurrences starting 10/11/2023 until 11/09/2024 Erythrocyte mean corpuscular volume determination [facility] Erythrocyte mean corpuscular volume determination [facility] Erythrocyte mean corpuscular volume determination [facility] Glucose [Mass/volume ] in Serum or Plasma [facility] Guidance for biopsy of Abdomen IMAGING GUIDED BIOPSY ABDOMEN/RETROPERITONEAL MASS Radiology Routine Other intra-abdominal and pelvic swelling, mass and lump Ordered: 07/12/2024 [facility] Work Phone: Comment on above: Ordered: 07/12/2024 Hematocrit [Volume Fraction] of Blood [facility] Hematocrit [Volume Fraction] of Blood [facility] Hematocrit [Volume Fraction] of Blood [facility] Hemoglobin [Mass/vol ume] in Blood [facility] Hemoglobin [Mass/vol ume] in Blood [facility] Hemoglobin [Mass/vol ume] in Blood [facility] Hemoglobin [Presence ] in Urine [facility] Hemoglobin [Presence ] in Urine [facility] Leukocytes [#/volume ] in Blood [facility] Leukocytes [#/volume ] in Blood [facility] Leukocytes [#/volume ] in Blood [facility] End: 09-25-2025 Magnesium [Mass/volume] in Serum or Plasma MAGNESIUM Lab STAT Adenocarcinoma of cecum (HCC) Every other week for 25 Occurrences starting 09/25/2024 until 09/25/2025 [facility] Comment on above: Every other week for 25 Occurrences star ting 09/25/2024 until 09/25/2025 Mean corpuscular hemoglobin concentration determination [facility] Mean corpuscular hemoglobin concentration determination [facility] Mean corpuscular hemoglobin concentration determination [facility] Mean corpuscular hemoglobin determination [facility] Mean corpuscular hemoglobin determination [facility] Mean corpuscular hemoglobin determination [facility] Measurement of keton es in urine using dipstick [facility] Measurement of keton es in urine using dipstick [facility] Measurement of renal function [facility] Microscopic urinalysis [facility] Microscopic urinalysis [facility] Neutrophil count [facility] Neutrophil count [facility] Neutrophil count [facility] Neutrophil percent differential count [facility] Neutrophil percent differential count [facility] Neutrophil percent differential count [facility] Organism count, microscopic method [facility] Patient Education [facility] Work Phone: Patient referral [facility] Work Phone: pH of Urine [facility] pH of Urine [facility] Platelets [#/volume] in Blood [facility] Platelets [#/volume] in Blood [facility] Platelets [#/volume] in Blood [facility] Potassium measurement [facility] Red blood cell count [facility] Red blood cell count [facility] Red blood cell count [facility] Red cell distributio n width determination [facility] Red cell distributio n width determination [facility] Red cell distributio n width determination [facility] REFERRAL FOR ADDITIO NAL BIOMARKER AND MOLECULAR TESTING REFERRAL FOR ADDITIONAL BIOMARKER AND MOLECULAR TESTING Lab Routine Adenocarcinoma of cecum (HCC) 09/25/2024 7:[address] [facility] Serum chloride measurement [facility] Sodium measurement [facility] Specific gravity of Urine [facility] Specific gravity of Urine [facility] Stroke after atrial fibrillation 5 year risk [#] Sun 2002 IR PORTOCATH PLACEMENT Radiology Routine Adenocarcinoma of cecum (HCC) Ordered: 09/25/2024 [facility] Comment on above: Ordered: 09/25/2024 Troponin T.cardiac [Mass/volume] in Serum or Plasma by High sensitivity method [facility] Urea nitrogen [Mass/volume] in Serum or Plasma [facility] Urine blood test [facility] Urine dipstick for glucose [facility] Urine dipstick for glucose [facility] Urine dipstick for leukocyte esterase [facility] Urine dipstick for leukocyte esterase [facility] Urine dipstick for nitrite [facility] Urine dipstick for nitrite [facility] Urine dipstick for protein [facility] Urine dipstick for protein [facility] Urine examination [facility] Urine examination [facility] Urine microscopy: epithelial cells [facility] Urine microscopy: epithelial cells [facility] Urine microscopy: re d cells [facility] Urine Microscopy: wh ite cells [facility] Urobilinogen [Presen ce] in Urine [facility] Urobilinogen [Presen ce] in Urine [facility] White blood cell count [facility] Immunizations Immunization Date Immunization Notes Care Provider Fa [facility] 08-16-2022 tetanus toxoid, reduced diphtheria toxoid, and acellular pertussis vaccine, adsorbed Sheila Walters DMD Work Phone: [facility] 03-01-2021 Pfizer Monovalent (12+ yrs) SARS-COV-2 (COVID-19) vaccine, mRNA, spike protein, LNP, pres. free, 30 mcg/0.3mL dose (CYB=915) Sheila Walters DMD Work Phone: [facility] 07-01-2020 Pfizer Monovalent (12+ yrs) SARS-COV-2 (COVID-19) vaccine, mRNA, spike protein, LNP, pres. free, 30 mcg/0.3mL dose (UVC=390) Sheila Walters DMD Work Phone: [facility] 06-06-2020 Pfizer Monovalent (12+ yrs) SARS-COV-2 (COVID-19) vaccine, mRNA, spike protein, LNP, pres. free, 30 mcg/0.3mL dose (SHP=635) Sheila Walters DMD Work Phone: [facility] 01-09-2015 influenza, injectable, quadrivalent, contains preservative Sheila Walters DMD Work Phone: [facility] 01-09-2015 influenza virus vaccine, unspecified formulation Sheila Walters DMD Work Phone: [facility] NEGATED: Highlighted row has not occurred!01-08-2024 influenza, seasonal, injectable, preservative free Mary Moss [employer] Work Phone: [facility] Comment on above: Deferred: Patient Re fused - Pt. wants prior to discharge. Payers Date Payer Category Payer Self-pay [id number] 2022 Unknown SP/UNINSURED PEN DING FINANCIAL PROGRAM EVALUATION [id number] 2022-[address] [place] [address] Other [id number] 2022 Unknown [id number] 2022 Unknown [id number] 2021 Medicaid [id number] 2021 Medicare [id number] 2021 Medicare [id number] 2002 Medicaid [place] [id number] 2002-Present [phone] [address] [place] [address] Medicaid [id number] 1959 Unknown [id number] 1959 Unknown [id number] Unknown [id number] Unknown [id number] Unknown [id number] Unknown [id number] Unknown [id number] Unknown [id number] Unknown [id number] Unknown [id number] Unknown [id number] Unknown [id number] Unknown [id number] Unknown [id number] Unknown [id number] Unknown [id number] Unknown [id number] Social History Date Type Detail Facility Start: 05-03-2019 End: 11-20-2024 Tobacco smoking status SCIS Ex-smoker [facility] Start: 05-03-2019 End: 06-17-2024 Tobacco use and exposure Smokeless tobacco non-user [facility] Start: 1960 Sex Assigned At Not on file [facility] Start: 07-24-2020 End: 05-13-2024 Tobacco smoking status SCIS Unknown if ever smoked [facility] Start: 11-06-2019 Occasional [facility] Start: 11-06-2019 None [facility] Start: 11-06-2019 [facility]one [facility] Start: 07-24-2020 Non-smoker [facility] Start: 1960 Sex Assigned At Female [facility] Start: 1977 End: 03-27-1995 History of tobacco use Current smoker [facility] Start: 05-03-2019 End: 09-18-2023 Gender identity Not on file [facility] Start: 05-03-2019 End: 09-18-2023 History of Social function [facility] Start: 05-28-2018 Adult Depression Screening Assessment 2 [facility] (I/We) worried wheth er (my/our) food would run out before (I/we) got money to buy more. Never true [facility] Work Phone: Start: 10-03-2023 End: 12-18-2023 Alcohol intake Current drinker of alcohol (finding) [facility] Start: 10-03-2023 Alcohol Comment daily [facility] Start: 1977 End: 03-27-1995 History of tobacco use Cigarette Smoker [facility] History of tobacco use Passive smoker [facility] Start: 12-28-2023 End: 11-18-2024 Alcoholic beverage intake Ex-drinker (finding) [facility] Start: 12-28-2023 Alcohol Comment sober, quit [address] [facility] Has the [employer] Smart[employer], oil, or water meebee threatened to shut off services in your home in past 12Mo No [facility] Start: 07-11-2024 Sex Female (finding) [facility] Has the [employer], oil, or water meebee threatened to shut off services in your home in past 12Mo Yes [facility] (I/We) worried wheth er (my/our) food would run out before (I/we) got money to buy more. Sometimes true [facility] Medical Equipment Procedure Code Equipment Code Equipment Origin al Text Equipment Identifier Dates CENTER SCREW FDA Start: 11-06-2019 PERIPHERAL SCREW FDA Start: 11-06-2019 X3 HUMERAL INSERT FDA Start: 11-06-2019 CONENTRIC GLENOSPHERE FDA Sta rt: 11-06-2019 DALL MILES 1.6MM BEADED CABLE FDA Start: 11-06-2019 GLENOID BASEPLAT E 28MM FDA Start: 11-06-2019 GLENOSPHERE FDA Start: 11-06-2019 HUMERAL CUP FDA Start: 11-06-2019 HUMERAL FRACTURE STEM FDA Sta rt: 11-06-2019 HUMERAL FRACTURE STEM FDA Sta rt: 11-06-2019 PERIPHERAL SCREW FDA Start: 11-06-2019 CENTER SCREW FDA Start: 11-06-2019 PERIPHERAL SCREW FDA Start: 11-06-2019 X3 HUMERAL INSERT FDA Start: 11-06-2019 CONENTRIC GLENOSPHERE FDA Sta rt: 11-06-2019 DALL MILES 1.6MM BEADED CABLE FDA Start: 11-06-2019 GLENOID BASEPLAT E 28MM FDA Start: 11-06-2019 GLENOSPHERE FDA Start: 11-06-2019 HUMERAL CUP FDA Start: 11-06-2019 HUMERAL FRACTURE STEM FDA Sta rt: 11-06-2019 HUMERAL FRACTURE STEM FDA Sta rt: 11-06-2019 PERIPHERAL SCREW FDA Start: 11-06-2019 CENTER SCREW FDA Start: 11-06-2019 PERIPHERAL SCREW FDA Start: 11-06-2019 X3 HUMERAL INSERT FDA Start: 11-06-2019 CONENTRIC GLENOSPHERE FDA Sta rt: 11-06-2019 DALL MILES 1.6MM BEADED CABLE FDA Start: 11-06-2019 GLENOID BASEPLAT E 28MM FDA Start: 11-06-2019 GLENOSPHERE FDA Start: 11-06-2019 HUMERAL CUP FDA Start: 11-06-2019 HUMERAL FRACTURE STEM FDA Sta rt: 11-06-2019 HUMERAL FRACTURE STEM FDA Sta rt: 11-06-2019 PERIPHERAL SCREW FDA Start: 11-06-2019 CENTER SCREW FDA Start: 11-06-2019 PERIPHERAL SCREW FDA Start: 11-06-2019 X3 HUMERAL INSERT FDA Start: 11-06-2019 CONENTRIC GLENOSPHERE FDA Sta rt: 11-06-2019 DALL MILES 1.6MM BEADED CABLE FDA Start: 11-06-2019 GLENOID BASEPLAT E 28MM FDA Start: 11-06-2019 GLENOSPHERE FDA Start: 11-06-2019 HUMERAL CUP FDA Start: 11-06-2019 HUMERAL FRACTURE STEM FDA Sta rt: 11-06-2019 HUMERAL FRACTURE STEM FDA Sta rt: 11-06-2019 PERIPHERAL SCREW FDA Start: 11-06-2019 CENTER SCREW FDA Start: 11-06-2019 PERIPHERAL SCREW FDA Start: 11-06-2019 X3 HUMERAL INSERT FDA Start: 11-06-2019 CONENTRIC GLENOSPHERE FDA Sta rt: 11-06-2019 DALL MILES 1.6MM BEADED CABLE FDA Start: 11-06-2019 GLENOID BASEPLAT E 28MM FDA Start: 11-06-2019 GLENOSPHERE FDA Start: 11-06-2019 HUMERAL CUP FDA Start: 11-06-2019 HUMERAL FRACTURE STEM FDA Sta rt: 11-06-2019 HUMERAL FRACTURE STEM FDA Sta rt: 11-06-2019 PERIPHERAL SCREW FDA Start: 11-06-2019 CENTER SCREW FDA Start: 11-06-2019 PERIPHERAL SCREW FDA Start: 11-06-2019 X3 HUMERAL INSERT FDA Start: 11-06-2019 CONENTRIC GLENOSPHERE FDA Sta rt: 11-06-2019 DALL MILES 1.6MM BEADED CABLE FDA Start: 11-06-2019 GLENOID BASEPLAT E 28MM FDA Start: 11-06-2019 GLENOSPHERE FDA Start: 11-06-2019 HUMERAL CUP FDA Start: 11-06-2019 HUMERAL FRACTURE STEM FDA Sta rt: 11-06-2019 HUMERAL FRACTURE STEM FDA Sta rt: 11-06-2019 PERIPHERAL SCREW FDA Start: 11-06-2019 CENTER SCREW FDA Start: 11-06-2019 PERIPHERAL SCREW FDA Start: 11-06-2019 X3 HUMERAL INSERT FDA Start: 11-06-2019 CONENTRIC GLENOSPHERE FDA Sta rt: 11-06-2019 DALL MILES 1.6MM BEADED CABLE FDA Start: 11-06-2019 GLENOID BASEPLAT E 28MM FDA Start: 11-06-2019 GLENOSPHERE FDA Start: 11-06-2019 HUMERAL CUP FDA Start: 11-06-2019 HUMERAL FRACTURE STEM FDA Sta rt: 11-06-2019 HUMERAL FRACTURE STEM FDA Sta rt: 11-06-2019 PERIPHERAL SCREW FDA Start: 11-06-2019 CENTER SCREW FDA Start: 11-06-2019 PERIPHERAL SCREW FDA Start: 11-06-2019 X3 HUMERAL INSERT FDA Start: 11-06-2019 CONENTRIC GLENOSPHERE FDA Sta rt: 11-06-2019 DALL MILES 1.6MM BEADED CABLE FDA Start: 11-06-2019 GLENOID BASEPLAT E 28MM FDA Start: 11-06-2019 GLENOSPHERE FDA Start: 11-06-2019 HUMERAL CUP FDA Start: 11-06-2019 HUMERAL FRACTURE STEM FDA Sta rt: 11-06-2019 HUMERAL FRACTURE STEM FDA Sta rt: 11-06-2019 PERIPHERAL SCREW FDA Start: 11-06-[address] Plastic 8f Chronoflex Catheter With Kit - [id number] Start: 10-21-2024 CENTER SCREW FDA Start: 11-06-2019 PERIPHERAL SCREW FDA Start: 11-06-2019 X3 HUMERAL INSERT FDA Start: 11-06-2019 CONENTRIC GLENOSPHERE FDA Sta rt: 11-06-2019 DALL MILES 1.6MM BEADED CABLE FDA Start: 11-06-2019 GLENOID BASEPLAT E 28MM FDA Start: 11-06-2019 GLENOSPHERE FDA Start: 11-06-2019 HUMERAL CUP FDA Start: 11-06-2019 HUMERAL FRACTURE STEM FDA Sta rt: 11-06-2019 HUMERAL FRACTURE STEM FDA Sta rt: 11-06-2019 PERIPHERAL SCREW FDA Start: 11-06-2019 CENTER SCREW FDA Start: 11-06-2019 PERIPHERAL SCREW FDA Start: 11-06-2019 X3 HUMERAL INSERT FDA Start: 11-06-2019 CONENTRIC GLENOSPHERE FDA Sta rt: 11-06-2019 DALL MILES 1.6MM BEADED CABLE FDA Start: 11-06-2019 GLENOID BASEPLAT E 28MM FDA Start: 11-06-2019 GLENOSPHERE FDA Start: 11-06-2019 HUMERAL CUP FDA Start: 11-06-2019 HUMERAL FRACTURE STEM FDA Sta rt: 11-06-2019 HUMERAL FRACTURE STEM FDA Sta rt: 11-06-2019 PERIPHERAL SCREW FDA Start: 11-06-2019 CENTER SCREW FDA Start: 11-06-2019 PERIPHERAL SCREW FDA Start: 11-06-2019 X3 HUMERAL INSERT FDA Start: 11-06-2019 CONENTRIC GLENOSPHERE FDA Sta rt: 11-06-2019 DALL MILES 1.6MM BEADED CABLE FDA Start: 11-06-2019 GLENOID BASEPLAT E 28MM FDA Start: 11-06-2019 GLENOSPHERE FDA Start: 11-06-2019 HUMERAL CUP FDA Start: 11-06-2019 HUMERAL FRACTURE STEM FDA Sta rt: 11-06-2019 HUMERAL FRACTURE STEM FDA Sta rt: 11-06-2019 PERIPHERAL SCREW FDA Start: 11-06-2019 CENTER SCREW FDA Start: 11-06-2019 PERIPHERAL SCREW FDA Start: 11-06-2019 X3 HUMERAL INSERT FDA Start: 11-06-2019 CONENTRIC GLENOSPHERE FDA Sta rt: 11-06-2019 DALL MILES 1.6MM BEADED CABLE FDA Start: 11-06-2019 GLENOID BASEPLAT E 28MM FDA Start: 11-06-2019 GLENOSPHERE FDA Start: 11-06-2019 HUMERAL CUP FDA Start: 11-06-2019 HUMERAL FRACTURE STEM FDA Sta rt: 11-06-2019 HUMERAL FRACTURE STEM FDA Sta rt: 11-06-2019 PERIPHERAL SCREW FDA Start: 11-06-2019 CENTER SCREW FDA Start: 11-06-2019 PERIPHERAL SCREW FDA Start: 11-06-2019 X3 HUMERAL INSERT FDA Start: 11-06-2019 CONENTRIC GLENOSPHERE FDA Sta rt: 11-06-2019 DALL MILES 1.6MM BEADED CABLE FDA Start: 11-06-2019 GLENOID BASEPLAT E 28MM FDA Start: 11-06-2019 GLENOSPHERE FDA Start: 11-06-2019 HUMERAL CUP FDA Start: 11-06-2019 HUMERAL FRACTURE STEM FDA Sta rt: 11-06-2019 HUMERAL FRACTURE STEM FDA Sta rt: 11-06-2019 PERIPHERAL SCREW FDA Start: 11-06-2019 Goals Date Patient Goal Desired Activity /State Personal health goal Functional Status Date Assessment Result Facility 11-08-2024 Functional status Up ad salma [facility] Work Phone: 09-13-2024 Functional status Chair [facility] Work Phone: 09-12-2024 Functional status Tolerates Activity Well [facility] Work Phone: 08-21-2024 Are you deaf, or do you have serious difficulty hearing No 08/21/2024 1:20 PM Felicia Galan, REAL No [facility] 08-21-2024 Are you blind, or do you have serious difficulty seeing, even when wearing glasses No 08/21/2024 1:20 PM Felicia Galan, REAL No [facility] 08-21-2024 Do you have serious difficulty walking or climbing stairs No 08/21/2024 1:20 PM Felicia Galan, REAL No [facility] 08-21-2024 Do you have difficul ty dressing or bathing No 08/21/2024 1:20 PM EDT Felicia Castro, REAL No [facility] 08-21-2024 Because of a physica l, mental, or emotional condition, do you have difficulty doing errands alone such as visiting a physician's office or shopping No 08/21/2024 1:20 PM EDT Felicia Castro, REAL No [facility] 01-08-2024 Are you deaf, or do you have serious difficulty hearing No 01/08/2024 1:30 PM Angel Beck, REAL No [facility] 01-08-2024 Are you blind, or do you have serious difficulty seeing, even when wearing glasses No 01/08/2024 1:30 PM Angel Beck, REAL No [facility] 01-08-2024 Do you have serious difficulty walking or climbing stairs No 01/08/2024 1:30 PM Angel Beck, RN No [facility] 01-08-2024 Do you have difficul ty dressing or bathing No 01/08/2024 1:30 PM Angel Beck, RN No [facility] 01-08-2024 Because of a physica l, mental, or emotional condition, do you have difficulty doing errands alone such as visiting a physician's office or shopping Yes 01/08/2024 1:30 PM Angel Beck, RN Yes [facility] 02-01-2019 Are you deaf, or do you have serious difficulty hearing No 02/01/2019 11:10 AM Jenna Lemons RN No [facility] 02-01-2019 Are you blind, or do you have serious difficulty seeing, even when wearing glasses No 02/01/2019 11:10 AM Jenna Lemons RN No [facility] 02-01-2019 Do you have serious difficulty walking or climbing stairs No 02/01/2019 11:10 AM Jenna Lemons RN No [facility] 02-01-2019 Do you have difficul ty dressing or bathing No 02/01/2019 11:10 AM Jenna Lemons RN No [facility] 02-01-2019 Because of a physica l, mental, or emotional condition, do you have difficulty doing errands alone such as visiting a physician's office or shopping No 02/01/2019 11:10 AM Jenna Lemons RN No [facility] Mental Status Date Assessment Result Facility 11-20-2024 Cognitive function Voice/Name [facility] Work Phone: 11-08-2024 Cognitive function Voice/Name [facility] Work Phone: 09-13-2024 Cognitive function Voice/Name [facility] Work Phone: 08-21-2024 Because of a physica l, mental, or emotional condition, do you have serious difficulty concentrating, remembering, or making decisions No 08/21/2024 1:20 PM EDT Felicia Castro, REAL No [facility] 01-08-2024 Because of a physica l, mental, or emotional condition, do you have serious difficulty concentrating, remembering, or making decisions Yes 01/08/2024 1:30 PM EDT Angel Tompkins, REAL Yes [facility] 02-01-2019 Because of a physica l, mental, or emotional condition, do you have serious difficulty concentrating, remembering, or making decisions No 02/01/2019 11:10 AM Jenna Lemons RN No [facility] Clinical Notes 01-29-2019 to 11-23-2024 Tessa Spring MD - 11/21/2024 4:52 PM Rema Dior RN - 11/21/2024 4:15 PM Saadia Mendez APRN.CNP - 11/21/2024 4:13 AM EDT Note Date & Type Note Facility 11-23-2024 Note HNO ID: [id number] Author: PATEL GANDARA MD Service: Hospital Medicine Author Type: Physician Type: Progress Notes Filed: 11/23/2024 09:35 Note Text: DEPARTMENT OF HOSPITAL MEDICINE CONSULT PROGRESS NOTE SERVICE DATE: 11/23/2024 SERVICE TIME: 9:15 AM Primary Care Physician: Christie Sánchez NP NIGHT AND WEEKEND COVERAGE: [place] COVERAGE: After 7pm, please call cross cover pager #[phone] Subjective INTERVAL HPI: Patient transferred out of ICU on 11/22/2024. Assuming patient care this morning. Patient complains of reproducible chest wall pain from the ACLS. She denies any SOB, N/V/D, dysuria, headache or any focal neurological deficits. Patient is afebrile, on room air. She denies any diarrhea. Current Facility-Administered Medications Medication Dose Route Frequency NaCl 0.9% iv flush bag 20 mL INTRAVENOUS PRN phosphorus 500 mg tab(s) (K PHOS NEUTRAL) 500 mg ORAL/FEEDING TUBE PRN(NO DISPENSE) calcium gluconate iv piggyback 2 g in NaCl (iso-osmotic) 100 mL 2 g INTRAVENOUS PRN(NO DISPENSE) melatonin 3 mg tab(s) 3 mg ORAL/FEEDING TUBE AT BEDTIME PRN prochlorperazine 10 mg injection (COMPAZINE) 10 mg INTRAVENOUS q [address] 40 mg tab(s) (PROTONIX) 40 mg ORAL DAILY (6 AM) sodium chloride 0.9 % (flush) 2-10 mL (BD POSIFLUSH) 2-10 mL INTRAVENOUS DIRECTED PRN oxyCODONE IR 5 mg tab(s) (ROXICODONE) 5 mg ORAL q 6 H PRN dextrose 15 gram/32 mL 15 g (TRUEPLUS) 15 g ORAL PRN Or glucagon 1 mg injection 1 mg INTRAMUSCULAR PRN Or dextrose 10% iv bolus 12.5 g INTRAVENOUS PRN insulin lispro injection (rapid acting) (ADMElog) SUBCUTANEOUS w MEALS metoprolol tartrate (short acting) 12.5 mg tab(s) (LOPRESSOR) 12.5 mg ORAL q 12 H Objective PHYSICAL EXAM: BP 100/67 Pulse 94 Temp (Src) 98.4 (Oral) Resp 16 Ht 5' 3 (1.60m) Wt 92 lb 9.5 oz (42.0kg) SpO2 97% BMI 16.41 kg/(m2). O2 Therapy: Room Air GENERAL: On examination, the patient is frail, chronically ill looking. Patient is awake, alert and oriented to person, place, time, and situation. Patient is verbal, conversational, does not appear to be in any acute distress. CARDIOVASCULAR: S1 and S2 auscultated without murmurs, gallops or rubs. Right-sided port noted. CHEST: Good air entry. No wheezing, rales or rhonchi appreciated. Symmetrical, unlabored. Equal chest expansion. ABDOMEN: Soft, NT, ND, without R, R, G. BS x 4 WNL EXTREMITIES: No edema NEUROLOGICAL: Equal strength noted to all four extremities. Speech intact. Lines, Drains, and Airways Line Duration Implanted Vascular Access Device Single Port 10/21/24 1204 Right Chest 32 days Peripheral 11/21/24 0030 External Facility Short Left Wrist 24 Gauge 2 days Peripheral 11/21/24 1800 Left Antecubital 20 Gauge 1 day Reviewed lines and needs to be continued: REASONS: Intravenous fluids DATA: Diagnostic tests reviewed for today's visit: Assessment/Plan Problem List STEMI (ST elevation myocardial infarction) (HCC) (POA: Yes) VT (ventricular tachycardia) (HCC) (POA: Status not on file) History of ventricular fibrillation (POA: Status not on file) HOSPITAL COURSE: Lakesha Koch is a64 year old year old female with past medical history of iron deficiency anemia, epilepsy, adenocarcinoma of the colon, and anorexia who is currently admitted under CVICU service for further workup of reported STEMI and reported Vfib arrest at [facility], with initial complaint of chest pain. Recently found new metastatic lesions to the liver, and had new chemotherapy initiated the day prior to presentation with chest pain. EKG concerning for anterior STEMI. Then reported tro develop Vfib arrest with compressions and cardioversion. Started on amio bolus and infusion and pulse returned. Reported to have transient afib on tele and started on dobutamine for suspected cardiogenic shock and sent to CVICU at [facility]. Taken immediately to [facility] with LHC and RHC performed which revealed normal coronary arteries and slightly reduced cardiac output. The following day dobutamine and amiodarone were both stopped and telemetry was monitored showing no concerns of arrhythmias. Has had sustained low blood pressures but these are her normal's and has been doing well with no elevations in lactate with MAP goal of 55-60. 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 Patient was started on low-dose metoprolol for suppression of future possible Takotsubo events. Transferred to general nursing floor on 11/22/2024. Questionable V-fib arrest status post ACLS with reported ST elevation MS at outside hospital after being started on new chemotherapy (fluorouracil + oxaliplatin) on 11/19/24. Potassium 2.6 prior to infusion, replaced with 40mEq IV potassium on 11/19). Left heart catheterization on 11/21/2024 with normal left main, LAD, left circumflex, RCA. TTE on 11/21/2024 with mild LV dilatation (more content not included)... [facility] 11-22-2024 Note HNO ID: [id number] Author: ?, ?, ? Service: Pharmacy Author Type: Horse Racing Manager Type: Plan of Care Filed: 11/22/2024 11:58 Note Text: PHARMACY MEDICATION REVIEW Patient Name: Lakesha Koch : 1960 The following medications were updated within the [employer] medication list: Medications ADDED to [employer] medication list HYDROmorphone 2 mg tablet Take 2 mg by mouth two times a day as needed for pain. Medications CHANGED on [employer] medication list Medications REMOVED from [employer] medication list acetaminophen (TYLENOL EXTRA STRENGTH) 500 mg tablet Adjust Sig - Block E-Cancel busPIRone (BUSPAR) 7.5 mg tablet Adjust Sig - Block E-Cancel gabapentin (NEURONTIN) 300 mg capsule Adjust Sig - Block E-Cancel OLANZapine (ZYPREXA) 10 mg tablet Adjust Sig - Block E-Cancel Additional comments: Verified medication information with e-scripts/dispense report and chart review. Confirmed medications with patient. Patient stated no longer taking Tylenol and Buspar - removed from med list. Patient stated taking Dilaudid - added to med list. Removed duplicate gabapentin and olanzapine from med list. Patient stated had Zoloft 50 mg at home from when took it before. Patient stated taking Fosamax - found no current fill date. Required follow up actions for nursing: None The below information represents the best possible medication history: Yes Medication history completed by: Horse Racing Manager: Gricel Child ([employer]ender Finisher) Source of history: Patient: Reliability of source: Appears reliable, clearly identified: Medication name, Medication dose, Medication route, and Medication frequency, Pharmacy records: e-scripts/dispense report, and [facility] records Medication nonadherence identified: No barriers noted Reconciliation completed: No, pharmacist not yet reviewed Patient interested in Bedside Delivery Services or using [facility] OP Pharmacy at discharge? Unable to assess [facility] [address] [place] [phone] [facility] [phone] Allergies: Erythromycin Intolerance Comment:Mouth soreness and peeling. Denies swelling. Azithromycin Unknown Comment:Patient unable to recall allergy Prior to Admission Medications Prescriptions Last Dose Informant Patient Reported? Taking? HYDROmorphone 2 mg tablet Yes Yes Sig: Take 2 mg by mouth two times a day as needed for pain. OLANZapine (ZYPREXA) 10 mg tablet 11/20/2024 Bedtime No Yes Sig: Take 1 tablet by mouth daily at bedtime. alendronate (FOSAMAX) 70 mg tablet 11/16/2024 Morning Yes Yes Sig: Take 70 mg by mouth one time a week. On Saturdays diazePAM (VALIUM) 5 mg tablet 11/20/2024 Noon No Yes Sig: Take 1 tablet by mouth every 12 hours as needed for anxiety for up to 10 days. gabapentin (NEURONTIN) 300 mg capsule No Yes Sig: Take 1 capsule by mouth once daily for 90 days. lidocaine (SALONPAS) 4 % patch No Yes Sig: Apply 2 patches to affected area as directed once daily. Keep patches on for 12 hour and remove patches after 12 hours. lidocaine-prilocaine (EMLA) 2.5-2.5 % cream No Yes Sig: Apply to port 60 minutes before accessing methocarbamol (ROBAXIN) 500 mg tablet No Yes Sig: Take 1 tablet by mouth two times a day as needed (spasm/pain) for up to 28 days. ondansetron orally disintegrating (ZOFRAN ODT) 4 mg disintegrating tablet No Yes Sig: Take 1 tablet by mouth every 8 hours as needed for nausea/vomiting. oxyCODONE IR (ROXICODONE) 5 mg immediate release tablet 11/20/2024 No Yes Sig: Take 1 tablet by mouth every 6 hours as needed for pain for up to 7 days. prochlorperazine (COMPAZINE) 10 mg tablet Past Week No Yes Sig: Take 1 tablet by mouth every 6 hours as needed for nausea/vomiting. sertraline (ZOLOFT) 50 mg tablet 11/20/2024 Morning Yes Yes Sig: Take 50 mg by mouth once daily. Facility-Administered Medications: None Gricel Child (Fender Finisher)[id number] 11/22/2024 [facility] 11-22-2024 Note HNO ID: [id number] Author: GEO CARTER RN Service: Care Management Author Type: Registered Nurse Type: Care Mgt Progress Note Filed: 11/22/2024 11:42 Note Text: CARE MANAGEMENT PROGRESS NOTE SERVICE DATE: 11/22/2024 SERVICE TIME: 11:42 AM LOS: 1 day Needs Prior to Discharge: None, Ready for Discharge IMM Follow Up Copy Given: Yes Copy given to:: Patient Method: In Person (verbalized understanding) Patient denies any homegoing needs. Friends can provide transport. SIGNATURE: Geo Carter RN PATIENT NAME: Lakesha Koch DATE: November 22, 2024 TIME: 11:41 AM [facility] 11-21-2024 Note [facility] 11-21-2024 History of Present illness Narrative Images from the original note were not included. Established Patient Visit REASON FOR VISIT Follow up I have communicated my name and active licensure. The patient's identity and physical location were verified at the time of this visit. Either the patient or their legal sales and marketing representative has been informed of the risks and benefits of -- and alternatives to -- treatment through a remote evaluation and consents to proceed with the evaluation remotely. History of Present Illness: Lakesha Koch is a 64 year old year old female with hx of a presumed perforated appendix in August 2023 managed with drains and ABx for a few months. Eventually she presented in December 2023 with failure to thrive and I performed an ileocecectomy which revealed a cecal adenocarcinoma. She developed local recurrence in 2024 therefore I performed an ex lap, SBR and redo ileocolic anastomosis, resection of R RP mass, repair of iliac vein, and resection of pelvic mass on 08/28/2024. She recently had a CT of the abdomen that revealed diffuse bilobar hepatic metastasis and was started on chemotherapy FOLFOX. However, during the recent infusion she had cardiac complications with A-fib and RVR requiring emergent admission to [facility] Where she was resuscitated and put on beta-blockers. The pump was disconnected and the patient has been stabilized. She is currently hospitalized receiving cardiac care and Dr. Poole her oncologist is aware. 11/07/24: CT abd/pelvis FUNCTIONAL STATUS: Partially dependent PAST MEDICAL HISTORY Diagnosis Date Anemia Anorexia nervosa (HCC) Bowel wall thickening Colon cancer (HCC) Daily consumption of alcohol Depression Essential tremor Failure to thrive in adult Feeding difficulties Focal epilepsy (HCC) Gait abnormality Inflammation of colonic mucosa Intestinal obstruction (HCC) Migraine Migraine without aura 05/03/2019 Muscular deconditioning Perforated 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 with localized peritonitis, gangrene and abscess Psoas abscess, right (HCC) Seizures (HCC) Severe protein-calorie malnutrition (HCC) PAST SURGICAL HISTORY Procedure Laterality Date APPENDECTOMY 01/03/2024 COLONOSCOPY DIAGNOSTIC polyp EXPLORATORY OF ABDOMEN 09/19/2023 ROCIO DRAIN TO BULB SUCTION 09/01/2023 for acute 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 with perforation, localized peritonitis, and gangrene. FAMILY HISTORY Problem Relation Age of Onset Lung Cancer Mother Prostate Cancer Father Melanoma Sister No Known Problems Sister No Known Problems Sister No Known Problems Brother No Known Problems Brother No Known Problems Maternal Grandmother No Known Problems Maternal Grandfather Breast Cancer Paternal Grandmother No Known Problems Paternal Grandfather Anesthesia Problems No Family History Colon Cancer No Family History SOCIAL HISTORY[1] MEDICATIONS No current facility-administered medications for this visit. No current outpatient medications on file. Facility-Administered Medications Ordered in Other Visits Medication Dose Route Frequency Provider Last Rate Last Admin NaCl 0.9% iv flush bag 20 mL INTRAVENOUS PRN Ky Gonzalez MD phosphorus 500 mg tab(s) (K PHOS NEUTRAL) 500 mg ORAL/FEEDING TUBE PRN(NO DISPENSE) Ky Gonzalez MD calcium gluconate iv piggyback 2 g in NaCl (iso-osmotic) 100 mL 2 g INTRAVENOUS PRN(NO DISPENSE) Ky Gonzalez MD melatonin 3 mg tab(s) 3 mg ORAL/FEEDING TUBE AT BEDTIME PRN Ky Gonzalez MD prochlorperazine 10 mg injection (COMPAZINE) 10 mg INTRAVENOUS q 6 H PRN Ky Gonzalez MD pantoprazole DR 40 mg tab(s) (PROTONIX) 40 mg ORAL DAILY (6 AM) Ky Gonzalez MD sodium chloride 0.9 % (flush) 2-10 mL (BD POSIFLUSH) 2-10 mL INTRAVENOUS DIRECTED PRN Ky Gonzalez MD methocarbamol 500 mg tab(s) (ROBAXIN) 500 mg ORAL BID PRN Ky Gonzalez MD DOBUTamine iv infusion 1,000 mg in D5W 250 mL (DOBUTREX) 10 mcg/kg/min INTRAVENOUS CONTINUOUS Raeann Donaldson MD Paused at 11/21/24 1523 amiodarone iv infusion 360 mg in D5W 200 mL (NEXTERONE) 0.5 mg/min INTRAVENOUS CONTINUOUS Ky Gonzalez MD Paused at 11/21/24 1530 nitroglycerin sublingual 0.4 mg tab(s) (NITROQUICK) 0.4 mg SUBLINGUAL q 5 MIN PRN Ky Gonzalez MD atropine 0.4 mg injection 0.4 mg INTRAVENOUS PRN(NO DISPENSE) Ky Gonzalez MD DOPamine iv infusion 800 mg/250 mL D5W 5-10 mcg/kg/min (Order-Specific) INTRAVENOUS CONTINUOUS Saadia Gonzales APRN.BALL THREAD MACHINE TENDER oxyCODONE IR 5 mg tab(s) (ROXICODONE) 5 mg ORAL q 6 H PRN Stef Akinsra, DO 5 mg at 11/21/24 1056 dextrose 15 gram/32 mL 15 g (TRUEPLUS) 15 g ORAL PRN Mable, Noreen, DO Or glucagon 1 mg injection 1 mg INTRAMUSCULAR PRN Mable, Noreen, DO Or dextrose 10% iv bolus 12.5 g INTRAVENOUS PRN Mable, Noreen, DO insulin lispro injection (rapid acting) (ADMElog) SUBCUTANEOUS w MEALS Sabrina Akinsandra, DO CURRENT ALLERGIES ALLERGIES Allergen Reactions Erythromycin Intolerance Mouth soreness and peeling. Denies swelling. Azithromycin Unknown Patient unable to recall allergy REVIEW OF SYSTEMS PAIN ASSESSMENT: Pain Pain Level: 7 Pain Location: Abdomen-Right Lower Quadrant Description: Aching, Cutting, Sharp Duration Units: Weeks Frequency: Intermittent Intervention/Comfort measure: Medication, Heat, Positioning General: Weight relatively stable, today 89 from 92 lbs Neuro: Seizures on Depakote Respiratory: No history of current cough or dyspnea, or pneumonia in the past 6 weeks. No history of respiratory/pulmonary symptoms or problems Cardiovascular: No history of HTN requiring medication, no history of angina, CHF, MS, cardiac surgery or stents. Denies rest pain, gangrene or revascularization/amputation for PVD. No history of cardiovascular symptoms or problems. GI: See HPI : No history of UTI in past 6 weeks. No history of renal failure. Not currently on or requiring dialysis. No history of symptoms or problems. Endocrine: No history of diabetes. Has not taken steroids within the past 30 days. No history of endocrinological symptoms or problems. Hematology: Iron deficiency anemia due to malnutrition and long hospitalization Oncology: No history of CA metastasis, chemo within 30 days, or radiotherapy within 90 days. Has not lost 10% of body wt in 6 months. No history of oncological symptoms or problems. Psych: No history of psychiatric symptoms or problems. Musculoskeletal: Negative for joint pain or swelling, back pain or muscle pain. Skin: Negative for lesions, rash and itching. Anemia: No PHYSICAL EXAMINATION There were no vitals taken for this visit. This consult was conducted via a virtual video platform and all the findings stated below are extrapolated from the video visit. General: appears tired and appears anxious Skin: no rash noted Head: normocephalic, no abnormality or lesion noted Eyes: no injection Ears: external ears normal Nose: external nose normal without rhinorrhea Oropharynx: moist mucus membranes Neck: full ROM, no masses or LNs visible and no visible JVD or carotid pulsations Respiratory: breathing non-labored and no cyanosis Chest: equal chest rise with normal respiratory effort Heart: No visible pulsations. Abdomen: deferred. Neurologic: No gross neurological deficits noted. ASSESSMENT Lakesha Koch is a 64 year old year old female with hx of a presumed perforated appendix in August 2023 managed with drains and ABx for a few months. Eventually she presented in December 2023 with failure to thrive and I performed an ileocecectomy which revealed a cecal adenocarcinoma. She developed local recurrence in 2024 therefore I performed an ex lap, SBR and redo ileocolic anastomosis, resection of R RP mass, repair of iliac vein, and resection of pelvic mass on 08/28/2024. Recent CT shows evidence of hepatic metastasis. She had severe adverse events (cardiac) while on the 5-FU infusion as part of her planned FOLFOX therapy. RECOMMENDATION I updated the patient on the imaging findings. Dr. Poole is aware and started her on IV FOLFOX but unfortunately she developed severe adverse events and the treatment was discontinued. I will defer to medical oncology about further treatment options. From the surgical perspective, the patient does not appear to have local recurrence and no signs of obstruction that would require surgical intervention. I will remain in touch with the patient and follow-up on her updates. Medical Decision Making: Problems: High: Illness/injury w/ threat to life/body function Data: Unique source(s) for external note(s) reviewed: 3+ Unique test result(s) reviewed: 2 Assessment requiring an independent historian(s) Independent interpretation of test from other physician/QHCP Risk: High: High risk from testing/treatment Medical Decision Making Level: 5 - High Tessa Spring MD [facility] November 21, 2024 [1] Social History Tobacco Use Smoking status: Former Current packs/day: 0.00 Average packs/day: 1 pack/day for 18.1 years (18.1 ttl pk-yrs) Types: Cigarettes Start date: 1977 Quit date: 1995 Years since quittin.6 Passive exposure: Past Smokeless tobacco: Never Vaping Use Vaping status: Some Days Substance Use Topics Alcohol use: Not Currently Comment: sober, quit 3 years ago Drug use: Not Currently Types: Marijuana Comment: unknown Images from the original note were not included. New/Est pt: established patient Reason for apt: discuss recent CT 11/07/24: CT abd/pelvis documented in this encounter [facility] 11-21-2024 Note HNO ID: [id number] Author: REMA BELTRE RN Service: ? Author Type: Registered Nurse Type: Progress Notes Filed: 11/21/2024 17:02 Note Text: New/Est pt: established patient Reason for apt: discuss recent CT 11/07/24: CT abd/pelvis [facility] 11-21-2024 Note HNO ID: [id number] Author: GEO CARTER RN Service: Care Management Author Type: Registered Nurse Type: Care Mgt Initial Assessment Filed: 11/21/2024 12:40 Note Text: CARE MANAGEMENT: ASSESSMENT AND DISCHARGE PLAN SERVICE DATE: November 21, 2024 SERVICE TIME: 12:38 PM PCP: Christie Sánchez NP Primary Contact: Extended Emergency Contact Information Primary Emergency Contact: Jeanette Garvin (HCPOA) [facility] Mobile Relation: Sister Secondary Emergency Contact: Brittney Koch (1st alt. HCPOA) Mobile Relation: Sister Admission Status: Inpatient Insurance Provider: MEDICARE A AND B Discharge Planning requested by: Per Department Practice Potential Transition Plans To Be Determined Advance Directives Current Advance Directive: Health Care Power of Land Title Examiner In Chart: Yes Up To Date and Valid: Yes Current Living Arrangements and Support Lives with: Alone Type of Residence: Private Residence (House) Does the patient have to climb stairs at home?: stairs outside the home, Yes (two entry) Support: Friends/neighbors How do you manage to accomplish the following: Independent: Ambulation, Going to the bathroom, Bathe/Shower, Dress, Meals/Meal Prep, Medication Management, Transportation to appointments/community Current Services/Equipment Current Post-Acute Service(s): DME, Other: See Comment (outpt chemo at [facility] +port) Current DME Type: Cane Discharge Planning Patient Goal(s): General wellness, Be able to go home [place] of Choice Explained: [place] of Choice Given: No Reason Not Given: No placements necessary Are you interested in bedside delivery of your medications? No Discharge Planning Participant(s): Patient Patient/Family Comments: Caregiver Assessment: Caregiver is ready, willing and able to meet the patient's needs as recommended by the inter-professional team: No Caregiver needed Transport at Discharge: Transportation Arrangements: To Be Determined Needs Prior to Discharge: Needs Prior to Discharge: To Be Determined Post-Acute Discharge Plan: Chart reviewed and met with patient at bedside Emotional support provided. Pt resides alone. Reports lots of friend support. Sisters do not live nearby Ind with adl's and uses cane as needed. @chemo at [place] and has port. No prior home care. PCP confirmed and has script coverage through Medicare D and uses [facility] in [place]. Dc plan to return home. Cm to follow for needs. SIGNATURE: Geo Carter RN PATIENT NAME: Lakesha Koch DATE: November 21, 2024 TIME: 12:38 PM [facility] 11-21-2024 Note HNO ID: [id number] Author: CALROS DIAZ MD Service: Cardiovascular Medicine Author Type: Physician Type: Progress Notes Filed: 11/22/2024 07:59 Note Text: CARDIOVASCULAR MEDICINE PROGRESS NOTE HPI Patient is a 64 year old year old female with past medical history of iron deficiency anemia, epilepsy, adenocarcinoma of the colon, and anorexia who is currently admitted under CVICU service for further workup of reported STEMI and reported Vfib arrest. Per chart review from [facility], patient arrived at the ED and complained of chest pain on and off since 9:30 AM on 11/20/2024. The symptoms lasted approximately 30 minutes and she rated her chest pain as high as an 8 out of 10. She had no shortness of breath, no nausea, no arm pain, no diaphoresis. She had 3 additional episodes of 30-minute chest pain at 1 PM and 5 PM and 9 PM the same day. She does not have any cardiac history, has never had a heart cath. She apparently was seen and admitted to the hospital for new metastatic lesions to the liver, and had new chemotherapy initiated the day prior to presentation with chest pain. Vital signs upon presentation to the ER showed blood pressure of 94/58, 100% oxygen saturation on room air, heart rate of 92. Initial EKG was read as sinus rhythm with rate of 110, ST elevation in the lateral leads with no depressions, T wave inversions in V1, V2. This EKG was apparently reviewed by the ED attending and cardiology. Patient was made a prehospital STEMI alert prior to presentation, but this STEMI alert was canceled upon reviewing the initial EKG. At approximately 11:30 PM on 11/20/2024, patient complained of another episode of 8 out of 10 chest pain. Her heart rate was 130, she had hypotension with a systolic of 79 which responded to fluids and was systolic of 112. Troponin was 91. Repeat EKG showed more broadening T waves in the anterior leads, and that elevations in the lateral leads were worsened. Cath team was contacted and plan was to take patient for cardiac cath. It was reported that ER physician was called back in the patient's room for heart rate of 190, and when they presented into the room V-fib arrest noted on the monitor compressions were started at that time, cardioversion 2 J initiated and CPR continued. Patient was given 300 mg of amiodarone IV. Additional epinephrine was given. On pulse check persistent V-fib, additional cardioversion performed, and another 150 mg IV amiodarone given. Next pulse check, patient had an organized rhythm and pulse. She was responsive therefore held off intubation. manager monitoring after this showed transient atrial fibrillation with apparent blood pressure dropping into the 70s systolic. Cardio genic shock was suspected and dopamine drip was ordered. Children'S Service Worker also recommended 180 mg of Brilinta, heparin drip was started at outside hospital. Lowest documented blood pressure at the outside hospital was 79/49. No EKG or telemetry strips were provided by outside hospital. In the ED patient received 500 cc LVB, K 40mEq, aspirin, brilinta, nitro drip, fentanyl once, dopamine, and heparin drip. Patient was taken immediately to [facility] where LHC and RHC were done. Interval Events Current cardiovascular interventions - Dopamine drip - stopped at 1523 - Amiodarone drip - stopped at 1523 Last heart cath Date: 11/21/24 Findings: - Left main Normal - LAD Normal - LCx Normal - RCA Normal - LVEDP:23mmHg - PA 35/20mmHg, mean 26mmHg - RA 10mmHg - PCWP 18mmHg - Cardiac output 3.2L/min Interventions: - none Last echo Date: 09/18/23 Findings: - LV normal in size, normal function; LVEF 61% - Left atrial cavity moderately dilated - RV normal in size, normal function - LA mildly dilated - RA normal in size - Mild mitral annular calcification with trace regurgitation - Trace tricuspid regurgitation - Small pericardial effusions adjacent to RV and LV OBJECTIVE EKG: Sinus tachycardia at 114 bpm Pertinent labs - Troponin: 132 -- 107 Physical exam Physical Exam Vitals reviewed. Constitutional: General: She is not in acute distress. Appearance: She is cachectic. HENT: Head: Normocephalic and atraumatic. Mouth/Throat: Mouth: Mucous membranes are dry. Pharynx: Oropharynx is clear. Eyes: Extraocular Movements: Extraocular movements intact. Conjunctiva/sclera: Conjunctivae normal. Pupils: Pupils are equal, round, and reactive to light. Cardiovascular: Rate and Rhythm: Regular rhythm. Tachycardia present. Pulses: Normal pulses. Heart sounds: No murmur heard. Comments: Port in R upper chest Pulmonary: Effort: Pulmonary effort is normal. No respiratory distress. Breath sounds: No wheezing or rhonchi. Abdominal: General: Abdomen is flat. There is no distension. Palpations: Abdomen is soft. Musculoskeletal: General: No swelling. Normal range of motion. Right lower leg: No ed (more content not included)... [facility] 11-21-2024 Note [facility] 11-21-2024 History of Present illness Narrative Images from the original note were not included. Critical Care Transport Note Patient Name: Lakesha Koch Service Date: 11/21/2024 Referring Physician: Evy Accepting Physician: [place] Referring Facility: [facility] Accepting Facility: [facility] SUBJECTIVE/CHIEF COMPLAINT: chest pain REASON FOR TRANSPORT: Higher level of care needed than available at referring facility History of Present Illness: The following history is what was known to CCT team at time of given care and summarized through: review of available medical records, patient interview, referring provider report, and referring nursing report Lakesha Koch is a 64 year old female with a past medical history significant for colon cancer with mets to liver, malnutrition/FTT, epilepsy, and depression. She presented to [place] ER on 11/21/2024 for evaluation of chest pain. Patient was a prehospital STEMI with ST elevations in inferolateral leads. Pain began this morning and has been intermittent throughout the day. At 2100, pain returned but did not resolve so EMS called. Patient was given ASA. Patient was seen by cardiology upon arrival to the ED and since she was chest pain free, it was not felt she needed an emergent cath. She was given brilinta and started on heparin. CT chest done which was negative for PE. Several hours later, pain returned with further EKG changes. Cardiology reviewed new EKG at that time and agreed to proceed with [facility]. Before this was able to be done, patient went into vfib arrest. She was shocked x 2, given amiodarone 150 mg and Epi x 1 before ROSC achieved. She was hypotensive post arrest and started on dopamine due to concerns for cardiogenic shock. Patient awake and protecting airway post arrest. Cardiology re-evaluated patient again and decided to transfer her to [facility] for cath due to possibility of needing circulatory support device. Patient currently c/o only slight chest pain and nausea. She denies Shortness of Breath or abdominal pain. At this time, the physician managing the patient requested transfer to [facility] for tertiary and/or quaternary services unavailable at the referring facility. Patient condition at time of exam was: Acutely ill and critically ill. Due to the unique circumstances of the patient, it was determined that this was the closest, most appropriate facility by referring physician. The physician managing the patient requested the [facility] Critical Care Transport Team transport and treat the patient for the purpose of tertiary care, evaluation, and management of her cardiovascular condition(s). Air medical transport was requested to reduce the seg-in-zywzahty time, 20 minutes by air vs. approximately 42 minutes by ground, with the potential for increased ground transport time secondary to: distance between facilities and the patient's condition requiring an emergent procedure or evaluation not available at the referring facility and distance between facilities and ground round transport time would be excessive and detrimental to patient given current clinical status ROS: A complete review of systems was performed and is negative except as noted PAST MEDICAL HISTORY: PAST MEDICAL HISTORY Diagnosis Date Colon cancer (HCC) Depression Essential tremor Failure to thrive in adult Focal epilepsy (HCC) Inflammation of colonic mucosa Intestinal obstruction (HCC) Migraine without aura 05/03/2019 Muscular deconditioning Psoas abscess, right (HCC) Seizures (HCC) Severe protein-calorie malnutrition (HCC) PAST SURGICAL HISTORY: PAST SURGICAL HISTORY Procedure Laterality Date APPENDECTOMY 01/03/2024 EXPLORATORY OF ABDOMEN 09/19/2023 ROCIO DRAIN TO BULB SUCTION 09/01/2023 ALLERGIES: Erythromycin and Azithromycin SOCIAL HISTORY: SOCIAL HISTORY[1] FAMILY HISTORY: FAMILY HISTORY Problem Relation Age of Onset Lung Cancer Mother Prostate Cancer Father Melanoma Sister No Known Problems Sister No Known Problems Sister No Known Problems Brother No Known Problems Brother No Known Problems Maternal Grandmother No Known Problems Maternal Grandfather Breast Cancer Paternal Grandmother No Known Problems Paternal Grandfather Anesthesia Problems No Family History Colon Cancer No Family History HOME MEDICATIONS: oxyCODONE IR (ROXICODONE) 5 mg immediate release tablet^Take 1 tablet by mouth every 6 hours as needed for pain for up to 7 days.^Disp: 30 tablet^Rfl: 0 diazePAM (VALIUM) 5 mg tablet^Take 1 tablet by mouth every 12 hours as needed for anxiety for up to 10 days.^Disp: 20 tablet^Rfl: 0 prochlorperazine (COMPAZINE) 10 mg tablet^Take 1 tablet by mouth every 6 hours as needed for nausea/vomiting.^Disp: 30 tablet^Rfl: 2 OLANZapine (ZYPREXA) 10 mg tablet^Take 1 tablet by mouth daily at bedtime.^Disp: 90 tablet^Rfl: 0 methocarbamol (ROBAXIN) 500 mg tablet^Take 1 tablet by mouth two times a day as needed (spasm/pain) for up to 28 days.^Disp: 56 tablet^Rfl: 0 lidocaine-prilocaine (EMLA) 2.5-2.5 % cream^Apply to port 60 minutes before accessing^Disp: 15 g^Rfl: 3 lidocaine (SALONPAS) 4 % patch^Apply 2 patches to affected area as directed once daily. Keep patches on for 12 hour and remove patches after 12 hours.^Disp: 60 patch^Rfl: 0 ondansetron orally disintegrating (ZOFRAN ODT) 4 mg disintegrating tablet^Take 1 tablet by mouth every 8 hours as needed for nausea/vomiting.^Disp: 60 tablet^Rfl: 2 acetaminophen (TYLENOL EXTRA STRENGTH) 500 mg tablet^Take 1-2 tablets by mouth every 6 hours as needed for pain.^Disp: ^Rfl: alendronate (FOSAMAX) 70 mg tablet^Take 70 mg by mouth one time a week. On Saturdays^Disp: ^Rfl: sertraline (ZOLOFT) 50 mg tablet^Take 50 mg by mouth once daily.^Disp: ^Rfl: Medications Administered by Referring Facility: EMS: Aspirin 325 mg ER: Heparin 2500 units Heparin gtt NS 1L Fentanyl 50 mcg Potassium chloride 40 meq Amiodarone 150 mg Brilinta 180 mg Zofran 4 mg x 2 Amiodarone gtt @ 1 mg/min Dopamine gtt @ 7.5 mcg/kg/min OBJECTIVE: Recent Labs, Diagnostics & Procedure Reports reviewed as available. Referring Facility Labs CBC: WBC 5.8k, Hgb 12.4, Hct 37.7, Plt 265K CHEMISTRY: Na 140, K 3.0, Cl 100, CO2 19.7, BUN 32, SCr 1.06, Glu 162 Coags: INR 0.9, PT 12.4, PTT 22.2 Cardiac Enzymes: HS Trop 91 Diagnostics & Procedure Reports ECG: ST elevations in I, V2-V6 CXR: Per radiology report, No acute cardiopulmonary abnormality CTA chest Scan: Per radiology report, Negative pulmonary embolism or dissection. RUL nodule. Procedure/Operative Report(s): None Invasive Lines/Devices/Tubes Placed by Referring Facility: Right chest wall medport PIV x 1 PHYSICAL EXAM: Upon CCT Arrival at Referring Facility Vital Signs: HR 109bpm, BP 99/69mmHg, RR 16, SpO2 93% Oxygen/Ventilator Settings: RA General appearance: alert, pleasant, no distress, cooperative, cachectic, frail, chronically ill. HEENT: normocephalic, EOMI, PERRL, 3mm/brisk. Mucous membranes moist Respiratory: clear to auscultation bilaterally,no respiratory distress,no rales,no rhonchi,no wheezing. Cardiovascular: no murmurs, no rubs, no gallops, regular rate and rhythm, tachycardic, peripheral pulses symmetric. Gastrointestinal: soft, nontender, nondistended and normal bowel sounds. Genitourinary: No void observed Musculoskeletal: No clubbing, cyanosis or edema, no calf tenderness, normal ROM, no joint swelling, no bony tenderness, no deformities, equal palpable peripheral pulses, and normal strength Skin: no abrasions or open wounds. Heme/Lymph: No cervical lymphadenopathy Neurologic: Awake, alert and oriented x 3, normal speech, Normal strength, No involuntary motions, Normal sensation, GCS 15 CRITICAL CARE COURSE Upon bedside arrival at referring facility the patient was assessed and detailed physical exam performed. Initial exam findings as described above. The patient was placed on the transport monitor and all transport equipment transitioned in standard fashion. The patient was transferred to the transport cot and transported to the Aircraft and loaded without incident. The patient was medically managed, monitored, and reassessed during transport. Medications Managed & Administered by CCT: Heparin gtt d/c'd Amiodarone gtt continued Dopamine gtt increased to 10 mcg/kg/min Procedures Performed by CCT: None ASSESSMENT/PLAN: Lakesha Koch is a 64 year old female Acute Inferolateral STEMI Vfib Arrest Hypokalemia - CP started this morning and was intermittent throughout the day - Given ASA, Brilinta, and heparin - Heparin gtt d/c'd in preparation for rangelands conservation laborer - Episode of Vfib arrest, ROSC achieved after shocks x 2, epi x 1 and amiodarone bolus - No further ectopy noted - Amiodarone gtt continued - Patient with minimal chest pain - BP trended down during transport requiring increase in dopamine gtt - Positive nausea, given zofran by ED upon CCT arrival - Given Potassium chloride by ED - Expedited transport to [facility] for further cardiac evaluation The transport was completed without significant incident or change in the patient's status. The patient was transported to the [facility] by Rotor (Helicopter) for tertiary and/or quaternary evaluation and management of her Emergent cardiovascular condition(s). Upon arrival to the receiving facility, a [id number] report was given to bedside nursing staff in rangelands conservation laborer and Dr. Niño. Patient care was transferred. The patient condition was Critical at the time of transfer. Vital Signs at time care transferred to the receiving facility unit: HR 111bpm, Rhythm ST, BP 89/52 (67) mmHg, RR 24, SpO2 97% on RA SPECIAL EQUIPMENT: None MODE OF TRANSPORT: Rotor (Helicopter) CRITICAL CARE TIME: I personally performed 35 minutes of critical care time exclusive of separately billable procedures, ambulance charges and treating other patients. 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 SIGNATURE: Saadia Gonzales APRN.CNP Acute Care Nurse Practitioner [facility] Critical Care Transport Team [1] Social History Tobacco Use Smoking status: Former Current packs/day: 0.00 Average packs/day: 1 pack/day for 18.1 years (18.1 ttl pk-yrs) Types: Cigarettes Start date: 1977 Quit date: 1995 Years since quittin.6 Passive exposure: Past Smokeless tobacco: Never Vaping Use Vaping status: Some Days Substance Use Topics Alcohol use: Not Currently Comment: sober, quit 3 years ago Drug use: Not Currently Types: Marijuana Comment: unknown documented in this encounter [facility] 11-21-2024 Discharge summary [facility] 11-21-2024 Radiology Diagnostic study note [facility] Imaging Services [address] [place] [address] CTA Chest W/WO Contrast MR#: [id number] Acct: [id number] Name: LAKESHA KOCH Rep #: [id number] : 1960 F 64 From: Ramón Cedeno MD PCP: Aubrey Lopez [facility] MECHANIC SENIOR-C Status: REG ER Study:CTA Chest W/WO Contrast Date of Exam: 11/20/24 Exam# [id number] Ordering Dr: Kavin Adams DO PROCEDURE: CTA CHEST W/WO CONTRAST 11/20/2024 REASON FOR EXAM: CHEST PAIN TECHNIQUE: CTA CHEST W/WO CONTRAST Multiplanar Sagittal and Coronal images were obtained. CONTRAST: 100 mL of Isovue-370 One or more dose reduction techniques were used (e.g., Automated exposure control, adjustment of the mA and/or kV according to patient size, use of iterative reconstruction technique). RADIATION DOSE SUMMARY: CTDlvol: 8.99 mGy DLP: 124.82 mGycm COMPARISON: None at the time of dictation. FINDINGS: Normal enhancement of the main pulmonary artery and right and left pulmonary arteries. Normal enhancement of the bilateral peripheral pulmonary arteries. There is no demonstrated pulmonary embolism. Normal thoracic aorta and visualized great vessels. There is no demonstrated aortic dissection. Normal heart and pericardium. The coronary arteries are calcified. Normal mediastinum. Normal hilar regions. Normal visualized trachea and bronchi. The lungs are well expanded. 8.4 mm nodule is seen in the right upper lobe. Normal pleura. Normal chest wall structures. The patient is status post total left shoulder joint replacement. Normal visualized upper abdomen. Cortical scarring is seen in the right upper renal pole. CT/CTA Chest W/WO Contrast IMPRESSION: No evidence of pulmonary embolism or aortic dissection. Right upper lobe nodule. Follow-up in [address] scan would be helpful for further evaluation. Reading [id number] CC: Dr. Kavin Adams DO; Aubrey [facility] MECHANIC SENIOR-C Beam ~ Healthcare Translator: Signed [facility] 11-20-2024 Radiology Diagnostic study note [facility] Imaging Services [address] [place] [address] Chest 1 View (Portable) MR#: [id number] Acct: [id number] Name: LAKESHA KOCH Rep #: [id number] : 1960 F 64 From: Alex Montero MD PCP: Aubrey Lopez [facility] MECHANIC SENIOR-C Status: REG ER Study:Chest 1 View (Portable) Date of Exam: 11/20/24 Exam# [id number] Ordering Dr: Kavin Adams DO PROCEDURE: CHEST 1 VIEW (PORTABLE) 11/20/2024 REASON FOR EXAM: CHEST PAIN TECHNIQUE: Frontal view of the chest. COMPARISON: 08/31/2023. FINDINGS: The heart is normal in size. The lungs are clear. The lungs are clear. Right chest infusion port. Left shoulder arthroplasty. RAD/Chest 1 View (Portable) IMPRESSION: No acute cardiopulmonary abnormality. Reading Location: [id number] CC: Dr. Kavin Adams DO; Aubrey [facility] MECHANIC SENIOR-C Beam ~ Healthcare Translator: Signed [facility] 11-20-2024 Telephone encounter Note Referring provider : Jimmie A Primary diagnosis or reason being seen: Adenocarcinoma of cecum Has patient been seen by inpatient provider? No Spoke to patient who indicates the reasons for consult are Adenocarcinoma of cecum Family member present no . Confirmed virtual process yes. Firearm & pet policy reviewed? yes. Visit confirmed for 11/21/2024 in the am block Cecilio Leigh [facility] 11-20-2024 Miscellaneous Notes Referring provider : Jimmie A Primary diagnosis or reason being seen: Adenocarcinoma of cecum Has patient been seen by inpatient provider? No Spoke to patient who indicates the reasons for consult are Adenocarcinoma of cecum Family member present no . Confirmed virtual process yes. Firearm & pet policy reviewed? yes. Visit confirmed for 11/21/2024 in the am block Cecilio Leigh documented in this encounter [facility] 11-20-2024 Discharge summary Note Date/Time November 21, 2024 1:39am [facility] Medical Records Department [address] [place] [address] Emergency Department Summary 11/20/24 MR#: [id number] Acct: [id number] Name: LAKESHA KOCH Rep #:[id number] : 1960 64 From: Kavin Birch PCP: Aubrey Loepz MECHANIC SENIOR-C Status:REG ER Location: ED HPI History of Present Illness Chief Complaint: Chest Pain Informant: patient and EMS Narrative Narrative: Presents to the ED prehospital STEMI alert secondary to ST elevations inferior lateral leads on EKG. Called and patient with chest pain however does have history of being on chemotherapy for cancer. She was given aspirin by EMS. However on arrival patient is symptom-free. Interventional Dr. Nichols was present in the ED on her arrival. Patient with on and off chest pain starting at 9:30 AM. Symptoms lasted 30 minutes. States chest discomfort across her chest up to 8 out of 10. No dyspnea no nausea no radicular symptoms no diaphoresis. States symptoms came back at 1 PM and then again at 5 PM. Symptoms totally resolved this time. 9 PM symptoms again came back for which she called EMS. Denies any cardiac history. No history of heartcath. Remote tobacco for where she smoked and quit 1995. Patient diagnosed with colon cancer in January of last year. She had an appendectomy confirming cancer. She is followed by Dr. Poole. Patient wasseen a couple weeks ago for abdominal pain admitted for colitis and had concernsfor new metastatic lesions to her liver. She started new chemotherapy initiatedyesterday morning and being infused currently. Currently symptom is 0. Prior Similar Symptoms: No CVD Risk Factors: Negative for Hypertension, Diabetes, Hypercholesterolemia, Family History 1' </=55 or Smoking PE Risk Factors: Positive for Cancer; Negative for Recent Travel/Surgery, RecentImmobilization, Prior DVT or PE or OCP + Smoking + >/=35 PFSH PFSH Medical History Restless legs Cancer Hypotension Marijuana abuse Alcohol dependence ETOH abuse IBS (irritable bowel syndrome) Anxiety Depression Seizure Seizure disorder Home Medications ?Medication ?Instructions ?Recorded ?Last Taken ?Type alendronate 70 mg tablet 70 mg PO QWEEK Bone Health 0 10/18/23 Unknown History buspirone 7.5 mg tablet 7.5 mg PO DAILY Mood 4 09/04/24 08:50 History sertraline 50 mg tablet 50 mg PO DAILY Mood 10/18/23 09/04/24 08:50 History gabapentin 100 mg capsule 100 mg PO QHS 30 days #30 ca ps 09/12/24 Unknown Rx hydromorphone 2 mg tablet 2 - 4 mg (1 - 2 x 2 mg) PO Q 4H PRN 09/12/24 11/20/24 13:00 Rx PRN PAIN 6-10 7 days #42 tabs hydroxyzine pamoate 25 mg capsule 50 mg (2 x 25 mg) PO TID PRN PRN 09/12/24 Unknown Rx Itching 30 days #90 caps methocarbamol 750 mg tablet 750 mg PO Q8 30 days #90 t abs 09/12/24 Unknown Rx ondansetron 4 mg disintegrating 4 mg PO Q8H PRN PRN Na usea 30 days 09/12/24 Unknown Rx tablet #90 tabs Allergy/AdvReac Type Severity Reaction Status Date / Time erythromycin base Allergy TONGUE Verified 11/20/24 21:45 PEELS Family History Sister Melanoma Father Prostate CA Surgical History History of placement of ureteral stent History of resection of small bowel History of right salpingo-oophorectomy History of lysis of adhesions History of exploratory laparotomy 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 Social History household members: none housing: apartment Smoking Status: Former smoker alcohol intake: former year quit: 2020 substance use type: marijuana ROS ROS ED Constitutional Constitutional ED: Denies chills, fever(s) or sweats ENT ENT ED: Denies sore throat Cardiovascular Cardiovascular: Reports chest pain; Denies leg edema, palpitations or racing heartbeat Respiratory/Chest Respiratory/Chest: Denies cough, dyspnea or dyspnea on exertion Gastrointestinal Gastrointestinal: Denies abdominal pain, diarrhea, nausea or vomiting Genitourinary Genitourinary ED: Denies dysuria, hematuria or urinary frequency Musculoskeletal Musculoskeletal: Denies back pain, extremity pain or neck pain Integumentary Denies rash or wounds Neurologic Neurologic: Denies headache(s), paresthesias or weakness EXAM Physical Exam Const Vital Signs: 11/20/24 21:45 11/20/24 21:45 11/20/24 22:14 Temperature 98 F Temperature Source Oral Pulse Rate 112 H 92 Respiratory Rate 18 18 Respiratory Effort Normal Non-Labored Blood Pressure 108/45 L 94/58 L Blood Pressure Mean 66 70 Blood Pressure Source Blood Pressure Position Blood Pressure Location Pulse Ox 98 100 Oxygen Delivery Method Room Air Room Air Oxygen Flow Rate (L/min) 11/20/24 22:37 11/20/24 23:00 11/20/24 23:30 Temperature Temperature Source Pulse Rate 87 131 H Respiratory Rate 16 18 Respiratory Effort Blood Pressure 79/60 L 116/89 H Blood Pressure Mean 66 98 Blood Pressure Source Blood Pressure Position Blood Pressure Location Pulse Ox 98 100 100 Oxygen Delivery Method Room Air Room Air Room Air Oxygen Flow Rate (L/min) 11/21/24 00:00 11/21/24 00:06 11/21/24 00:19 Temperature Temperature Source Pulse Rate 87 64 103 H Respiratory Rate 18 16 Respiratory Effort Blood Pressure 79/49 L 66/54 L 72/57 L Blood Pressure Mean 59 58 62 Blood Pressure Source Monitor Blood Pressure Position Semi-Fowlers Blood Pressure Location Right Arm Pulse Ox 100 100 Oxygen Delivery Method Non-Rebreather Oxygen Flow Rate (L/min) 15 11/21/24 00:25 11/21/24 00:30 11/21/24 00:35 Temperature Temperature Source Pulse Rate 109 H 110 H 107 H Respiratory Rate 18 Respiratory Effort Blood Pressure 84/63 L 81/55 L 91/62 Blood Pressure Mean 70 63 71 Blood Pressure Source Blood Pressure Position Blood Pressure Location Pulse Ox 100 100 Oxygen Delivery Method Non-Rebreather Non-Rebreather Oxygen Flow Rate (L/min) 15 11/21/24 00:55 11/21/24 00:58 11/21/24 01:00 Temperature Temperature Source Pulse Rate 101 H 110 H Respiratory Rate 18 Respiratory Effort Blood Pressure 85/60 L 93/60 Blood Pressure Mean 68 71 Blood Pressure Source Blood Pressure Position Blood Pressure Location Pulse Ox 98 97 Oxygen Delivery Method Non-Rebreather Room Air Oxygen Flow Rate (L/min) 15 11/21/24 01:12 11/21/24 01:30 Temperature 98 F Temperature Source Pulse Rate 105 H 110 H Respiratory Rate 18 18 Respiratory Effort Blood Pressure 93/60 95/69 Blood Pressure Mean 71 77 Blood Pressure Source Blood Pressure Position Blood Pressure Location Pulse Ox 98 100 Oxygen Delivery Method Non-Rebreather Oxygen Flow Rate (L/min) 15 Positive well nourished and well developed General Appearance ED: well developed and NAD HEENT Reports moist mucous membranes normocephalic and atraumatic Eyes General Eye ED: Yes normal appearance of both eyes Neck full ROM Chest Wall Chest Narrative: Right upper chest wall Mediport with medications being infused currently. Chest: Negative for tenderness Resp normal respiratory effort and normal air movement Effort and Inspection: symmetric chest movement; Negative for respiratory distress Cardio regular rhythm and no murmurs Rate: tachycardic Peripheral Pulses: pulses 2+ throughout GI normal to inspection, nondistended, normoactive bowel sounds and non-tender Palpation: Negative for guarding or rebound tenderness present Extremity normal to inspection General Extremety ED: Negative for edema or tenderness General Extremity: Negative for edema Neuro oriented x3 and no sensory deficits noted Sensorium / Orientation: awake and alert Skin no rashes or lesions noted and no wounds MDM MDM MDM Narrative Medical decision making narrative: Interventions / MDM: Differential diagnosis: Acute coronary syndrome, V-fib arrest, cardiogenic shock, NSTEMI Diagnosis considered but do not suspect: Pulmonary embolism however CTA negative. My EKG interpretation: Sinus rate of 110, ST elevation lateral leads no depressions. T wave versions in V1 V2. Imaging independently reviewed and interpreted by myself: N/A External documents reviewed: N/A Test considered but not ordered:N/A ED course: Patient EKG performed bedside with cardiology. There is some noted ST elevations in lateral leads there is no depressions. She is currently symptom-free. With no active symptoms, Dr. Nichols did not feel cath is necessaryat this time. Recommended cardiac workup. treatment for ACS. She was given aspirin by EMS will start heparin drip. Will keep her n.p.o. If any worsening symptoms he will be recontacted for cardiac cath sooner otherwise plan for echocardiogram in the morning and heart cath after that. STEMI team was called off. This atypical pain just across her chest no other radicular symptom with cancer history she was tachycardic. I sent her over for CT angiogram to rule out PE. 2330: Nursing reported to me patient's pain returning I reevaluated her she states back up to the 8. Heart rate 130s. She has a transient hypotension 79 responding to fluids currently 112 in the room. Her troponin did return at 91. I interpreted and reviewed the CT angiogram myself I did not appreciate any PE. Will await final read. Will repeat EKG as her pain is returning. IV fentanyl ordered. Repeat EKG with concerning changes more broadening T waves anterior leads elevation lateral leads worsened than last EKG. I sent imaging to Dr. Nichols agrees with concerning changes he is coming into perform a heart cath. Cath Team was contacted. I was called back to the room heart rate 190s patient went into V-fib arrest noted on the monitor. Compressions started. Cardioversion 200 J initiated CPR continued. She was given 300 mg amiodarone IV. Additional epinephrine was given. On pulse check persistent V-fib additional cardioversion performed was given 150 mg IV amiodarone. Next pulse check, patient had organized rhythm she had a pulse. She was responding therefore held off on intubation. Continued airway support per respiratory. On the monitor transient A-fib blood pressure dropping in the 70s systolic. With concerns for cardiogenic shock I ordered for dopamine drip. 0005: [facility] Dr. Nicohls is in the department evaluating the patient. Brilinta 180 mg recommended and ordered. Heparin drip is running at this time. 0030: I did perform bedside ultrasound reviewed with c consultant, concerns for apical hypokinesis. Currently on dopamine drip pressure 84 systolic. He reports with no equipment for cardiogenic support at this facility, he recommended trying to transfer patient to higher level of center. He states with intervention and hypotension, patient can decompensate here in the hospital. Transfer process is initiated. CTA chest returned negative for any PE. There are some clinical rib fractures left upper chest from CPR . No respiratory distress. 0040: Interventional cardiac Dr. Nichols did speak with [facility] with interventialist there Dr. Niño, discussed patient's history concerns. Patient accepted to their facility. Arranging [facility] at this time. Heparindrip running, dobutamine drip running. Amio drip running. Awaiting transport. Delta troponin even after chest compressions and cardioversion decreased to 82. Re-evaluation: Critical Disposition discussed with patient/family/significant other: Patient Case discussed with consulting clinician: Interventional cardiology, hospitalistAlonso Transfer with cardiology This note was generated with [employer] dictation software. It may contain incorrectwords, spelling, and punctuation that were not noted in checking the note beforesigning. Lab Data Attestation: I reviewed the patient's lab results. Labs: Laboratory Results - last 24 hr 11/20/24 11/20/24 11/21/24 21:50 23:09 00:49 WBC 5.8 RBC 4.16 L Hgb 12.4 Hct 37.7 MCV 90.6 MCH 29.8 MCHC 32.9 RDW Std Deviation 47.6 H RDW Coeff of Yury 14.4 Plt Count 265 MPV 9.1 Immature Gran % (Auto) 0.300 Neut % (Auto) 60.3 Lymph % (Auto) 30.9 Campbell % (Auto) 5.7 Eos % (Auto) 1.9 Baso % (Auto) 0.9 Absolute Neuts (auto) 3.5 Absolute Lymphs (auto) 1.78 Nucleated RBC % 0 PT 12.4 INR 0.9 APTT 22.2 L Sodium 140 Potassium 3.0 L Chloride 100 Carbon Dioxide 19.7 L Anion Gap 20 H BUN 32 H Creatinine 1.06 Estim Creat Clear Calc 36.67 L Est GFR (MDRD) Non-Af 58 L BUN/Creatinine Ratio 30.1 H Glucose 162 H Calcium 9.5 Troponin T High Sens 91 H* Troponin T Hi Sens 2 Hr 82 H* Radiography Diagnostic Testing: Clinical Impression(s) from Imaging Studies Chest X-Ray 11/20/24 22:40 IMPRESSION: No acute cardiopulmonary abnormality. Reading Location: [facility] Chest CTA 11/20/24 23:10 IMPRESSION: No evidence of pulmonary embolism or aortic dissection. Right upper lobe nodule. Follow-up in [address] scan would be helpful for further evaluation. Reading Location: [place] [address] Critical Care Time Critical Care Time: Yes Critical care time (excluding procedures): 30-74 minutes, Discussing w/Patient &/or Family/[employer], Discussing w/Consultants, Arranging Admission or Transfer, Performing Direct Patient Care at Bedside and - (60 minutes) Discharge Plan Triage Chief Complaint: Chest Pain ED Provider: Kavin Adams Dx/Rx/DC Orders Clinical Impression: ACS (acute coronary syndrome), Cardiac arrest with ventricular fibrillation, Chest pain, Metastatic colon cancer to liver, Closed rib fracture, Cardiogenic shock Prescriptions: No Action sertraline 50 mg tablet 50 mg PO DAILY alendronate 70 mg tablet 70 mg PO QWEEK Patient Comments: Take once a week on Saturdays. buspirone 7.5 mg tablet 7.5 mg PO DAILY hydromorphone 2 mg Tablet 2 - 4 mg PO Q4H PRN PRN (Reason: PAIN 6-10) 7 Days Qty: 42 0RF methocarbamol 750 mg Tablet 750 mg PO Q8 30 Days Qty: 90 0RF gabapentin 100 mg Capsule 100 mg PO QHS 30 Days Qty: 30 0RF ondansetron 4 mg Tablet,Disintegrating 4 mg PO Q8H PRN PRN (Reason: Nausea) 30 Days Qty: 90 0RF hydroxyzine pamoate 25 mg Capsule 50 mg PO TID PRN PRN (Reason: Itching) 30 Days Qty: 90 0RF Primary Care Provider: Aubrey Lopez Referrals: Aubrey Lopez, MECHANIC SENIOR-C [Primary Care Provider] - Print Language: Tajik Disposition Disposition: DC/Tx to Another Type of HCF What to do if you have Problems For any increased pain, shortness of breath, bleeding, nausea or vomiting, chestpain, or any unexpected problems, contact your Primary Care Provider. Call [facility] ([phone]) or report to the closest Emergency Room. Call 911 if necessary. 11/21/24138 <Electronically signed by Kavin Bicrh> Cosigner Signature (if applicable): CC: Aubrey CURIEL MECHANIC SENIOR-Tana Lopez ~ Signed [facility] Work Phone: 1(513) 348-925108-27-2025 Telephone encounter Note* Telephone Encounter - Kate Castillo RN - 11/20/2024 1:[address] Poole aware. Agrees with Mylanta. If patient has persistent heart burn, can start some Prevacid but hold off for now. Judy Castillo RN Call to patient, aware of above and agrees with plan. She states she is still feeling ok, denies any chest pain/burning. Reviewed symptoms to seek medical attention or call 911. Continue to use Mylanta per bottle instructions, discussed sleeping with head of bed elevated if needed, she states she can sleep in her recliner if needed. Advised to call back in with any needs/concerns. Judy Castillo RN [facility] Work Phone: 1(710) 407-593508-27-2025 Miscellaneous Notes* Telephone Encounter - Kate Castillo RN - 11/20/2024 1:[address] Poole aware. Agrees with Mylanta. If patient has persistent heart burn, can start some Prevacid but hold off for now. Judy Castillo RN Call to patient, aware of above and agrees with plan. She states she is still feeling ok, denies any chest pain/burning. Reviewed symptoms to seek medical attention or call 911. Continue to use Mylanta per bottle instructions, discussed sleeping with head of bed elevated if needed, she states she can sleep in her recliner if needed. Advised to call back in with any needs/concerns. Judy Castillo RN * Telephone Encounter - Kate Castillo RN - 11/20/2024 1:37 PM EDT Care Coordination Triage Note Cancer [place] Situation: Patient reports Other Chest pain vs. heartburn Background: Folfox C2 yesterday. Assessment: Call from patient, states that chest pain has returned. States she lied down about 45 minutes ago and within about 10 minutes she the pain in her chest started. Describes as burning, located mid sternum and radiates out to the left and right. She is sitting up now and while talking with patient on the phone, she states that it is better anddenies any chest burning. She denies shortness of breath, heart racing, irregular, pain in either arms, lightheadedness. Denies nausea, indigestion, belching, feeling gassy. She does state she feels a little shaky. While on phone with patient, she ambulated to medicine cabinet and found some Mylanta. She denies any concerns or returning pain with ambulation. She will take a dose of Mylanta once she hangs up thephone. She is aware that I will update Dr. Poole and call her back soon. Recommendations: Per RNCC, patient directed to: Manage at home. Instructions provided. Will discuss with Dr. Poole and call back with further instructions. Kate Castillo RN November 20, 2024 1:37 PM * Telephone Encounter - Kate Castillo RN - 11/20/2024 12:04 PM EDT [facility] Care Coordination FOLLOW-UP NOTE Patient identified by name and date of . YES Spoke to patient Summary: (Reason for follow-up) Call to patient after C2 of Folfox yesterday. She states she is doing pretty good. Only issue is waking up this am with chest pain that she states was very similar to what she experienced when she took Xeloda. She took 2 Aleve and pain has resolved. No other c/o and denies other needs. She is aware of time to come in for CADD d/c tomorrow. Patient verbalized when to seek Medical Attention and an understanding of after- hours phone numberand process: Yes Care Coordination Plan: No further follow up needed at this time Kate Castillo RN November 20, 2024 [facility] Telephone encounter Note * Telephone Encounter - Kate Castillo RN - 11/20/2024 1:37 PM EDT Care Coordination Triage Note Cancer [place] Situation: Patient reports Other Chest pain vs. heartburn Background: Folfox C2 yesterday. Assessment: Call from patient, states that chest pain has returned. States she lied down about 45 minutes ago and within about 10 minutes she the pain in her chest started. Describes as burning, located mid sternum and radiates out to the left and right. She is sitting up now and while talking with patient on the phone, she states that it is better anddenies any chest burning. She denies shortness of breath, heart racing, irregular, pain in either arms, lightheadedness. Denies nausea, indigestion, belching, feeling gassy. She does state she feels a little shaky. While on phone with patient, she ambulated to medicine cabinet and found some Mylanta. She denies any concerns or returning pain with ambulation. She will take a dose of Mylanta once she hangs up thephone. She is aware that I will update Dr. Poole and call her back soon. Recommendations: Per RNCC, patient directed to: Manage at home. Instructions provided. Will discuss with Dr. Poole and call back with further instructions. Kate Castillo RN November 20, 2024 1:[address] [facility]08-27-2025 Telephone encounter Note* Telephone Encounter - Kate Castillo RN - 11/20/2024 12:04 PM EDT [facility] Care Coordination FOLLOW-UP NOTE Patient identified by name and date of . YES Spoke to patient Summary: (Reason for follow-up) Call to patient after C2 of Folfox yesterday. She states she is doing pretty good. Only issue is waking up this am with chest pain that she states was very similar to what she experienced when she took Xeloda. She took 2 Aleve and pain has resolved. No other c/o and denies other needs. She is aware of time to come in for CADD d/c tomorrow. Patient verbalized when to seek Medical Attention and an understanding of after- hours phone numberand process: Yes Care Coordination Plan: No further follow up needed at this time Kate Castillo RN November 20, 2024 [facility]08-26-[facility]25 Discharge summary Author Pb Wright [facility] Note Date/Time November 19, 2024 1: 06pm [facility] Physical Therapy [facility] [address] [place] [address] / REHABILITATION SERVICES DISCHARGE SUMMARY MR#: [id number] Acct: [id number] Name: LAKESHA KOCH Rep #: [id number] : 1960 64 From: Pb Wright PT, ATC Referring Dr.: Aubrey CURIEL MECHANIC SENIOR-Tana Beam Status: REG RCR Insurance: MEDICARE PART A B SELF PAY INSURANCE Patient Information Patient Information: LAKESHA KOCH was seen in my office for initial evaluation on 09/23/24. The following Plan of Care was established for this patient: POC Established Initial Frequency: 3x /Week Initial Duration: 4-6 Weeks Anticipated Interventions Patient/Client Instruction: Educate patient on: Condition and Plan of Care For the Purpose of:: To improve self management Therapeutic Exercise to Include: Strength training, Endurance training, Balance training, Gait and locomotor training and Dynamic Lumbar Stabilization For the Purpose of:: To decrease pain, To improve muscle performance and motor function and To increase tolerance to activity/condition/position Last Seen Last Seen: This patient was last seen in our office . Pertinent comments regarding their Physical therapy will appear below: Pt has not returned in greater than 30 days and is discontinued at this time. At this point I will be discontinuing this patient from physical therapy. I would be happy to see this patient again in the future if found appropriate by the physician. Thank you! Pb Wright, PT, ATC Balance/Gait/Functional tests Balance/Special Test Scores Lower Extremity Functional Score: 31 <Electronically signed by Pb Wright PT, ATC> 08/26/25 1306 CC: Aubrey CURIEL MECHANIC SENIOR-C Beam ~ [facility] Signed [facility] Work Phone: 1(640) 639-663508-26-2025 NoteHNO ID: [id number] Author: BRITTANY CARMICHAEL RN Service: ? Author Type: Registered Nurse Type: Progress Notes Filed: 11/19/2024 14:06 Note Text: Dr Poole updated on CMP and potassium. Orders placed for IV replacement. [facility] History of Present illness Narrative* Brittany Carmichael RN - 11/19/2024 1:[address] Poole updated on CMP and potassium. Orders placed for IV replacement. Brittany Carmichael RN [facility] Discharge summary [facility] Physical Therapy [facility] [address] [place] [address]. [address] [place] [address] / REHABILITATION SERVICES DISCHARGE SUMMARY MR#: [id number] Acct: [id number] Name: LAKESHA KOCH Rep #: [id number] : 1960 64 From: Pb Wright PT, ATC Referring Dr.: Aubrey CURIEL MECHANIC SENIOR-C Beam Status: REG RCR Insurance: MEDICARE PART A B SELF PAY INSURANCE Patient Information Patient Information: LAKESHA KOCH was seen in my office for initial evaluation on 09/23/24. The following Plan of Care was established for this patient: POC Established Initial Frequency: 3x /Week Initial Duration: 4-6 Weeks Anticipated Interventions Patient/Client Instruction: Educate patient on: Condition and Plan of Care For the Purpose of:: To improve self management Therapeutic Exercise to Include: Strength training, Endurance training, Balance training, Gait and locomotor training and Dynamic Lumbar Stabilization For the Purpose of:: To decrease pain, To improve muscle performance and motor function and To increase tolerance to activity/condition/position Last Seen Last Seen: This patient was last seen in our office . Pertinent comments regarding their Physical therapy willappear below: Pt has not returned in greater than 30 days and is discontinued at this time. At this point I will be discontinuing this patient from physical therapy. I would be happy to see this patient again in the future if found appropriate by the physician. Thank you! Pb Wright, PT, ATC Balance/Gait/Functional tests Balance/Special Test Scores Lower Extremity Functional Score: 31 11/19/24 1306 CC: Aubrey [facility] MECHANIC SENIOR-C Beam ~ [facility] Signed [facility]08-25-2025 Telephone encounter Note* Telephone Encounter - Amber Valverde LISW - 11/18/2024 3:30 PM EDT SOCIAL WORK FOLLOW UP NOTE: [facility]ER CENTER Date of service: November 18, 2024 Lakesha Koch is being seen for a follow up social work visit. Today's visit includes: patient and sisterPastora TOPICS ADDRESSED: SW met with pt and her sister/POA this date. They are inquiring about assistance with transportation and co-pay/premium reimbursement. SW discussed with pt and sister resources available to them for transportation as well as financial assistance. SW provided a resource packet with transportation providers and numbers. SW discussed a referral to financial navigation regarding co-pay assistance and Medicare reimbursement. Pt and sister in agreement to SW making referral this date, SW will send referral to financial navigation via email. Pt's sister/POA inquired about copies ofpt's POA forms, SW printed and gave POA copies this date. Pastora reports she lives out of state and will be returning to her home later this week but is looking into receiving intermittent leave from her employer to utilize as needed to assist in caring for pt. SW answered all questions as able thisdate. No other needs identified at this time. Advance Care Planning Pt has Advanced Directives completed, listing Jeanette Garvin (PH: [phone]) as primary agent and does not wish to make any changes at this time. PLAN: Continue follow up as needed , Provide emotional support to patient/family, and Referral to community resource F/U APPOINTMENT: PRN Assigned DOM listed in Care Team tab: Yes Amber Heller, PROGRAM OFFICER-S [facility]08-25-2025 Miscellaneous Notes* Telephone Encounter - Amber Valverde LISW - 11/18/2024 3:30 PM EDT SOCIAL WORK FOLLOW UP NOTE: CANCER CENTER Date of service: November 18, 2024 Lakesha Koch is being seen for a follow up social work visit. Today's visit includes: patient and sister, Pastora TOPICS ADDRESSED: SW met with pt and her sister/POA this date. They are inquiring about assistance with transportation and co-pay/premium reimbursement. SW discussed with pt and sister resources available to them for transportation as well as financial assistance. SW provided a resource packet with transportation providers and numbers. SW discussed a referral to financial navigation regarding co-pay assistance and Medicare reimbursement. Pt and sister in agreement to DOM making referral this date, SW will send referral to financial navigation via email. Pt's sister/POA inquired about copies ofpt's POA forms, SW printed and gave POA copies this date. Pastora reports she lives out of state and will be returning to her home later this week but is looking into receiving intermittent leave from her employer to utilize as needed to assist in caring for pt. SW answered all questions as able thisdate. No other needs identified at this time. Advance Care Planning Pt has Advanced Directives completed, listing Jeanette Garvin (PH: [phone]) as primary agent and does not wish to make any changes at this time. PLAN: Continue follow up as needed , Provide emotional support to patient/family, and Referral to community resource F/U APPOINTMENT: PRN Assigned SW listed in Care Team tab: Yes ANG Peterson documented in [facility] encounterSt[facility] History of Present illness Narrative* Jimmie Poole MD - 11/18/2024 2:52 PM EDT (Elements copied from my note dated November 05, 2024, have been reviewed and updated where appropriate, and all reflect current assessment and medical decision making from today's encounter, November 18, 2024) HISTORY OF PRESENT ILLNESS: Lakesha Koch is a 64 year old female July 2023, had large bowel perforation with obstruction, had a drain in place, had a post obstruction infection which persisted. Home a few weeks now. Slowly getting back on feet. Appetite good but things taste funny, so intake not optimal, weight down. We and family in attendance by phone and in person discussed recent dx of right colon cancer, pT4N0, grade 2, but prior obstruction and lymphatic invasion render higher risk of recurrence. We discussed the role of adjuvant chemotherapy in reducing recurrence risk. As stage II her risks are fairly low, adjuvant chemo will reduce risks by approximately 5%. Adjuvant Xeloda commenced 02-01-24. CT scan July 11 2024 showing progressive RLQ abdominal masses. These progressed since February 2024 where they were described as inflammatory masses. post biopsy, shows adenocarcinoma. Communicated with Dr Spring. TB discussion favors resection or radiation. 09-25-24 follow up, post debulking. CT at [place] September 13, 2024 looks ok, report being pursued 10-10-24 follow up, she pushed her appointments back to accommodate a trip, we dicussed the importance of timely adjuvant therapy post resection of locally recurrent disease 11-18-24 follow up, cycle 1 FolFox cut short due to diarrhea, went to ER ultimately, found to have cdiff, CT abd shows new liver metastases. We reviewed. She feels better has one more day of oral Vancomycin. No diarrhea for several days. CLINICAL IMPRESSION: Stage II colon cancer with high risk features. Now recurrent, metastatic to liver RECOMMENDATION/PLAN: continue FolFOx given these developments. Add in avastin when she is established to be tolerating FolFOx. Se back cycle 3, rescan after cycle 5 or 6 Written and verbal health teaching given to patient, patient verbalizes understanding and agrees with treatment plan. PAST MEDICAL HISTORY Diagnosis Date Anemia Anorexia nervosa (HCC) Bowel wall thickening Colon cancer (HCC) Daily consumption of alcohol Depression Essential tremor Failure to thrive in adult Feeding difficulties Focal epilepsy (HCC) Gait abnormality Inflammation of colonic mucosa Intestinal obstruction (HCC) Migraine Migraine without aura 05/03/2019 Muscular deconditioning Perforated 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 with localized peritonitis, gangrene and abscess Psoas abscess, right (HCC) Seizures (HCC) Severe protein-calorie malnutrition (HCC) PAST SURGICAL HISTORY Procedure Laterality Date APPENDECTOMY 01/03/2024 COLONOSCOPY DIAGNOSTIC polyp EXPLORATORY OF ABDOMEN 09/19/2023 ROCIO DRAIN TO BULB SUCTION 09/01/2023 for acute 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 with perforation, localized peritonitis, and gangrene. FAMILY HISTORY Problem Relation Age of Onset Lung Cancer Mother Prostate Cancer Father Melanoma Sister No Known Problems Sister No Known Problems Sister No Known Problems Brother No Known Problems Brother No Known Problems Maternal Grandmother No Known Problems Maternal Grandfather Breast Cancer Paternal Grandmother No Known Problems Paternal Grandfather Anesthesia Problems No Family History Colon Cancer No Family History Social History Tobacco Use Smoking status: Former Current packs/day: 0.00 Average packs/day: 1 pack/day for 18.1 years (18.1 ttl pk-yrs) Types: Cigarettes Start date: 1977 Quit date: 1995 Years since quittin.6 Passive exposure: Past Smokeless tobacco: Never Vaping Use Vaping status: Some Days Substance Use Topics Alcohol use: Not Currently Comment: sober, quit 3 years ago Drug use: Not Currently Types: Marijuana Comment: unknown ALLERGIES: ALLERGIES Allergen Reactions Erythromycin Intolerance Mouth soreness and peeling. Denies swelling. Azithromycin Unknown Patient unable to recall allergy CURRENT OUTPATIENT MEDICATIONS: diazePAM (VALIUM) 5 mg tablet Take 1 tablet by mouth every 12 hours as needed for anxiety for up to10 days. HYDROmorphone 2 mg tablet Take 1 tablet by mouth every 12 hours for 7 days. prochlorperazine (COMPAZINE) 10 mg tablet Take 1 tablet by mouth every 6 hours as needed for nausea/vomiting. methocarbamol (ROBAXIN) 500 mg tablet Take 1 tablet by mouth two times a day as needed (spasm/pain)for up to 28 days. lidocaine-prilocaine (EMLA) 2.5-2.5 % cream Apply to port 60 minutes before accessing OLANZapine (ZYPREXA) 10 mg tablet Take 1 tablet by mouth daily at bedtime. lidocaine (SALONPAS) 4 % patch Apply 2 patches to affected area as directed once daily. Keep patches on for 12 hour and remove patches after 12 hours. ondansetron orally disintegrating (ZOFRAN ODT) 4 mg disintegrating tablet Take 1 tablet by mouth every 8 hours as needed for nausea/vomiting. acetaminophen (TYLENOL EXTRA STRENGTH) 500 mg tablet Take 1-2 tablets by mouth every 6 hours as needed for pain. alendronate (FOSAMAX) 70 mg tablet Take 70 mg by mouth one time a week. On Saturdays gabapentin (NEURONTIN) 300 mg capsule Take 1 capsule by mouth once daily for 90 days. (Patient not taking: Reported on 11/05/2024) OLANZapine (ZYPREXA) 10 mg tablet Take 1 tablet by mouth daily at bedtime. (Patient not taking: Reported on 11/05/2024) gabapentin (NEURONTIN) 300 mg capsule Take 1 capsule by mouth daily at bedtime for 14 days. (Patient not taking: Reported on 11/18/2024) busPIRone (BUSPAR) 7.5 mg tablet Take 7.5 mg by mouth once daily. (Patient not taking: Reported on 11/18/2024) sertraline (ZOLOFT) 50 mg tablet Take 50 mg by mouth once daily. (Patient not taking: Reported on 11/18/2024) REVIEW OF SYSTEMS: GENERAL: No fever, night sweats, weight loss or malaise. All other reviewed and negative other than HPI. PHYSICAL EXAMINATION: VITAL SIGNS: BP 94/58 Pulse 96 Temp (Src) 98.1 (Temporal) Wt 85 lb (38.6kg) SpO2 98% GENERAL APPEARANCE: Well appearing, in no acute distress, alert and oriented x3, well-hydrated, well nourished. I spent a total of 30 minutes on the date of the service which included preparing to see the patient, [id number] patient care, completing clinical documentation, obtaining and/or reviewing separately obtained history, counseling and educating the patient/family/caregiver, ordering medications, arron ts, or procedures, communicating with other HCPs (not separately reported), independently interpreting results (not separately reported), communicating results to the patient/family/caregiver, and care coordination (not separately reported). And review of NCCN guidelines Electronically Signed: Jimmie Poole MD November 18, 2024 documented in this encounterSt. Charles Hospital08-21-2025 Telephone encounter Note * Telephone Encounter - Carrie Beaulieu RN - 11/14/2024 11:39 AM EDT Please review phone encounter from 11/11/24. addressed [facility]08-21-2025 Miscellaneous Notes* Telephone Encounter - Carrie Beaulieu RN - 11/14/2024 11:39 AM EDT Please review phone encounter from 11/11/24. addressed * Telephone Encounter - Brittany Mariscal - 11/13/2024 8:21 AM EDT Patient called and left a message regarding wanting results from MRI/CT return call to [phone] documented in this encounterSt. Charles Hospital08-20-2025 Telephone encounter Note * Telephone Encounter - Kate Castillo RN - 11/13/2024 1:36 PM EDT Rx for Valium was sent. Dr. Poole has left for the day. I don't think he knew she needed that? Judy Castillo RN [facility] Work Phone: [phone]) 876-602708-20-2025 Miscellaneous Notes* Telephone Encounter - Kate Castillo RN - 11/13/2024 1:36 PM EDT Rx for Valium was sent. Dr. Poole has left for the day. I don't think he knew she needed that? Judy Castillo RN * Telephone Encounter - Fang Myers - 11/13/2024 1:31 PM EDT Patient called back requesting prescription for Valium and dilaudid. She uses [facility] in [place]. * Telephone Encounter - Jimmie Poole MD - 11/13/2024 12:52 PM EDT Called patient reviewed findings from [facility]. MRI liver consistent with metastatic cancer. She's had no fevers to suggest abscesses, though she also apparently has c diff. She is on antibiotics for that. We will plan to stick to plans for chemo. We will follow up as scheduled, she will continue treatment for the c diff. Jimmie Poole MD November 13, 2024 documented in this encounterSt. Charles Hospital08-20-2025 Telephone encounter Note * Telephone Encounter - Fang Myers - 11/13/2024 1:31 PM EDT Patient called back requesting prescription for Valium and dilaudid. She uses [facility] in [place]. [facility] Work Phone: [phone] 200-390108-20-2025 Telephone encounter Note* Telephone Encounter - Kate Castillo RN - 11/13/2024 1:05 PM EDT See phone note dated 11/13/[address] [facility] Work Phone: 1(688) 706-658808-20-2025 Miscellaneous Notes* Telephone Encounter - Kate Castillo RN - 11/13/2024 1:05 PM EDT See phone note dated 11/13/24 Judy Castillo RN * Telephone Encounter - Kate Castillo RN - 11/13/2024 9:00 AM EDT Care Coordination Triage Note [facility] [place] Situation: Patient reports Bowel symptoms and Other anxiety Background: Colon, on Folfox, wanting to understand CT results done in the ED Assessment: Patient calls and states that the pain in her lower abdomen she has had since surgery is still there. She has Diluadid that she can take every 12 hours but last night she needed to take at 8 hours. She is wondering is there is something to take for break through pain. She states the pain is not anydifferent, the same pain but sometimes it gets worse. It is different pain than she was having lastweek in lower right abdomen that she went to the ED to have evaluated. She is not having that pain,that resolved after ED visit. She is still having loose stool, x3 during the night last pm, but she also states that having loosestool is not unusual for her. She doesn't think the frequency of loose stool is better or worse since starting Vancomycin. She is on day 7. She had called in previously about her mouth being sore and states that has resolved. Denies fever/chills. No energy. No appetite. Very anxious and asking for something to help her. Shecan't rest or sit still. She has taken Valium in the past (needed prior to dentist procedures) and she knows that works for her. Patient aware that I will discuss with Dr. Poole and call her back. Recommendations: Per RNCC, patient directed to: Manage at home. Instructions provided. Will update Dr. Poole and call back. Will try and reach out to Dr. Spring's office. Will also consult palliative care to help with pain management. Kate Castillo RN November 13, 2024 9:00 AM * Telephone Encounter - Fang Myers - 11/13/2024 8:04 AM EDT Patient called back this morning asking for results. She also stated she is in a great deal of painand has diarrhea from c diff. Care coord went to [facility]. * Telephone Encounter - Kate Castillo RN - 11/12/2024 11:[address] Poole was planning on calling her today but would like Dr. Spring's opinion about scans first. Patient has a call/message into his office as well. Judy Castillo RN * Telephone Encounter - Christina Leach - 11/12/2024 11:07 AM EDT Patient called to see when Dr. Poole will be calling her about her results. She is hoping for a call today. * Telephone Encounter - Bettye Flores - 11/11/2024 9:50 AM EDT Patient called in to see if had reviewed her scans yet. I let her know the images were uploaded Monday and that we would get back to her about them once he has reviewed them. She alsoasking about getting something for a yeast infection that she thinks might be from the antibiotics she was given for the C-diff. Per nursing request I told her to reach out to her PCP about advise onthe yeast infection, she stated understanding of all information. Bettye Kenny * Telephone Encounter - Kate Castillo RN - 11/08/2024 3:07 PM EDT EMERGENCY ROOM CALL BACK Today's date: November 08, 2024 Patient identified by name and date of . YES Primary Cancer Diagnosis: Colon Reason for Emergency Room Visit: Abdominal pain Time of day presented to Emergency Room 1118am If Mon-Monday during business hours: Did you contact your Pouncing Lathe Operator/Provider? Yes, told to present to emergency department Patient with any new symptom issues: No Psychosocial Risk Factors: None FOLLOW UP Patient reminded of her follow-up appointment with [facility] provider, Dr. Poole on 11/18/24: Yes Next Pouncing Lathe Operator outreach with patient scheduled? NA Discussed Patient states she feels so much better. She has the Vancomycin Rx and has started taking today. She has reached out to Dr. Spring. She would like him and Dr. Poole to review CT scan/MRI results. She wants to know what they think. She is aware that this nurse has requested films to be pushed to our system for review and that Dr. Poole is OOO today and will review on Monday. She denies further needs/concerns at this time. PATIENT EDUCATION/REINFORCEMENT Patient verbalizes understanding of when to seek Medical Attention? YES Patient verbalizes understanding of after hours and weekend phone number? YES Patient verbalizes understanding of next outreach appointment? YES Kate Castillo RN * Telephone Encounter - Kate Castillo RN - 11/08/2024 1:42 PM EDT Reviewed notes, given Vancomycin for C diff infection. Had CT A/P and MRI Abdomen. Will fax request to [facility] to push images to [employer] system. Judy Castillo RN MRI FINDINGS: Liver: Multiple lesions of varying sizes up to 10 mm throughout the liver, demonstrating restricteddiffusion, moderate T2 hyperintensity, T1 hypointensity, thin peripheral enhancement on early arterial phase with slow progressive enhancement on later phases, remaining hypointense relative to liver parenchyma. * Telephone Encounter - Christina Leach - 11/08/2024 11:34 AM EDT Patient called to advise she is being discharged. She advised she was given very bad news, is beinggiven antibiotics. Please advise Christina Leach * Telephone Encounter - Christina Leach - 11/07/2024 3:05 PM EDT Patient called to advise she is being admitted to [facility]. She had Cat Scans that showed she either hasColitis or Tumors on her liver. Cancelled 11/08 Hydration appointment Christina Leach * Telephone Encounter - Amber Casillas RN - 11/07/2024 10:57 AM EDT Call made to patient's sister (Jeanette) that per Adrienne Bahena CNP patient needs to go to ED d/t abdominal pain. Jeanette will make contact with patient and have her go straight to ED. documented in this encounterSt. Charles Hospital08-20-2025 Telephone encounter Note * Telephone Encounter - Jimmie Poole MD - 11/13/2024 12:52 PM EDT Called patient reviewed findings from [facility]. MRI liver consistent with metastatic cancer. She's had no fevers to suggest abscesses, though she also apparently has c diff. She is on antibiotics for that. We will plan to stick to plans for chemo. We will follow up as scheduled, she will continue treatment for the c diff. Jimmie Poole MD November 13, [address]24 [facility]08-20-20[facility] Telephone encounter Note* Telephone Encounter - Kate Castillo RN - 11/13/2024 9:00 AM EDT Care Coordination Triage Note [facility] [place] Situation: Patient reports Bowel symptoms and Other anxiety Background: Colon, on Folfox, wanting to understand CT results done in the ED Assessment: Patient calls and states that the pain in her lower abdomen she has had since surgery is still there. She has Diluadid that she can take every 12 hours but last night she needed to take at 8 hours. She is wondering is there is something to take for break through pain. She states the pain is not anydifferent, the same pain but sometimes it gets worse. It is different pain than she was having lastweek in lower right abdomen that she went to the ED to have evaluated. She is not having that pain,that resolved after ED visit. She is still having loose stool, x3 during the night last pm, but she also states that having loosestool is not unusual for her. She doesn't think the frequency of loose stool is better or worse since starting Vancomycin. She is on day 10/03. She had called in previously about her mouth being sore and states that has resolved. Denies fever/chills. No energy. No appetite. Very anxious and asking for something to help her. Shecan't rest or sit still. She has taken Valium in the past (needed prior to dentist procedures) and she knows that works for her. Patient aware that I will discuss with Dr. Poole and call her back. Recommendations: Per RNCC, patient directed to: Manage at home. Instructions provided. Will update Dr. Poole and call back. Will try and reach out to Dr. Spring's office. Will also consult palliative care to help with pain management. Kate Castillo RN November 13, 2024 9:[address] [facility]08-20-20[facility] Telephone encounter Note* Telephone Encounter - Brittany Mariscal - 11/13/2024 8:21 AM EDT Patient called and left a message regarding wanting results from MRI/CT return call to [phone] [facility] Work Phone: 1(587) 626-436508-20-2025 Telephone encounter Note* Telephone Encounter - Fang Myers - 11/13/2024 8:04 AM EDT Patient called back this morning asking for results. She also stated she is in a great deal of painand has diarrhea from c diff. Care coord went to [facility]. [facility] Work Phone: 1(287) 827-288208-19-2025 Telephone encounter Note* Telephone Encounter - Carrie Beaulieu RN - 11/12/2024 4:13 PM EDT Please see phone encounter from 11/11/24. Resolved [facility]08-19-2025 Miscellaneous Notes* Telephone Encounter - Carrie Beaulieu RN - 11/12/2024 4:13 PM EDT Please see phone encounter from 11/11/24. Resolved documented in this encounterSt. Charles Hospital08-19-2025 Telephone encounter Note * Telephone Encounter - Kate Castillo RN - 11/12/2024 11:[address] Poole was planning on calling her today but would like Dr. Spring's opinion about scans first. Patient has a call/message into his office as well. Judy Castillo RN [facility]08-19-2025 Telephone encounter Note* Telephone Encounter - Christina Leach - 11/12/2024 11:07 AM EDT Patient called to see when Dr. Poole will be calling her about her results. She is hoping for a call today. [facility]08-18-20[facility] Telephone encounter Note* Telephone Encounter - Carrie Beaulieu RN - 11/11/2024 10:28 AM EDT S/p Exploratory Lap/lysis of adhesions/SBR/resection of retroperitoneal mass on 08/28/24 Last DH:10/24/24: -asking for refill for Hydromorphone 2mg filled on 10/24/24 -reports currently C-diff +. On vancomycin. Now has yeast infection. -asking for Diflucan or something if possible -requesting for Dr. Spring to review CT and MRI from outside facility (In [facility]) [facility]08-18-2025 Miscellaneous Notes* Telephone Encounter - Carrie Beaulieu RN - 11/11/2024 10:28 AM EDT S/p Exploratory Lap/lysis of adhesions/SBR/resection of retroperitoneal mass on 08/28/24 Last DH:10/24/24: -asking for refill for Hydromorphone 2mg filled on 10/24/24 -reports currently C-diff +. On vancomycin. Now has yeast infection. -asking for Diflucan or something if possible -requesting for Dr. Spring to review CT and MRI from outside facility (In [facility]) * Telephone Encounter - Brittany Mariscal - 11/11/2024 9:45 AM EDT Patient called regarding CT and MRI images in [place] and would like a refill on pain medication return call to [phone] documented in this encounterSt. Charles Hospital08-18-2025 Telephone encounter Note * Telephone Encounter - Bettye Flores - 11/11/2024 9:50 AM EDT Patient called in to see if had reviewed her scans yet. I let her know the images were uploaded Monday and that we would get back to her about them once he has reviewed them. She alsoasking about getting something for a yeast infection that she thinks might be from the antibiotics she was given for the C-diff. Per nursing request I told her to reach out to her PCP about advise onthe yeast infection, she stated understanding of all information. Bettye Kenny [facility]08-18-2025 Telephone encounter Note* Telephone Encounter - Brittany Mariscal - 11/11/2024 9:45 AM EDT Patient called regarding CT and MRI images in [facility] and would like a refill on pain medication return call to [phone] [facility] Work Phone: 1(550) 585-636108-15-2025 Telephone encounter Note* Telephone Encounter - Rema Beltre RN - 11/08/2024 3:10 PM EDT Returned call and spoke to patient Started chemo this week. 3 am Monday - diarrhea, vomiting. Saw oncologist on morning and encouraged her to go to ER for the abdominal pain. She has cdiff. Dr Poole's office is getting the CT scan and MRI pushed to [facility] for possible new liver mets. Advised I would send Dr. Spring a message to check out the scans when available. [facility]08-15-2025 Miscellaneous Notes* Telephone Encounter - Rema Beltre RN - 11/08/2024 3:10 PM EDT Returned call and spoke to patient Started chemo this week. 3 am Monday - diarrhea, vomiting. Saw oncologist on morning and encouraged her to go to ER for the abdominal pain. She has cdiff. Dr Poole's office is getting the CT scan and MRI pushed to [facility] for possible new liver mets. Advised I would send Dr. Spring a message to check out the scans when available. * Telephone Encounter - Saeed aMncera - 11/08/2024 2:57 PM EDT Patient was in hospital overnight with cdiff and had CT scan which found two spots on liver. She isrequesting Dr. Spring looks at the imaging and she can talk to clinical. #: [phone] [facility] in [facility] Telephone encounter Note * Telephone Encounter - Kate Castillo RN - 11/08/2024 3:07 PM EDT EMERGENCY ROOM CALL BACK Today's date: November 08, 2024 Patient identified by name and date of . YES Primary Cancer Diagnosis: Colon Reason for Emergency Room Visit: Abdominal pain Time of day presented to Emergency Room 1118am If Mon-Monday during business hours: Did you contact your Pouncing Lathe Operator/Provider? Yes, told to present to emergency department Patient with any new symptom issues: No Psychosocial Risk Factors: None FOLLOW UP Patient reminded of her follow-up appointment with [facility] provider, Dr. Poole on 11/18/24: Yes Next Pouncing Lathe Operator outreach with patient scheduled? NA Discussed Patient states she feels so much better. She has the Vancomycin Rx and has started taking today. She has reached out to Dr. Spring. She would like him and Dr. Poole to review CT scan/MRI results. She wants to know what they think. She is aware that this nurse has requested films to be pushed to our system for review and that Dr. Poole is OOO today and will review on Monday. She denies further needs/concerns at this time. PATIENT EDUCATION/REINFORCEMENT Patient verbalizes understanding of when to seek Medical Attention? YES Patient verbalizes understanding of after hours and weekend phone number? YES Patient verbalizes understanding of next outreach appointment? YES Kate Castillo RN [facility]08-15-2025 Telephone encounter Note* Telephone Encounter - Saeed Mancera - 11/08/2024 2:57 PM EDT Patient was in hospital overnight with cdiff and had CT scan which found two spots on liver. She isrequesting Dr. Spring looks at the imaging and she can talk to clinical. CB#: [phone] [facility]08-15-2025 Telephone encounter Note* Telephone Encounter - Kate Castillo RN - 11/08/2024 1:42 PM EDT Reviewed notes, given Vancomycin for C diff infection. Had CT A/P and MRI Abdomen. Will fax request to [facility] to push images to [facility] system. Judy Castillo RN MRI FINDINGS: Liver: Multiple lesions of varying sizes up to 10 mm throughout the liver, demonstrating restricteddiffusion, moderate T2 hyperintensity, T1 hypointensity, thin peripheral enhancement on early arterial phase with slow progressive enhancement on later phases, remaining hypointense relative to liver parenchyma. [facility]08-15-2025 Telephone encounter Note* Telephone Encounter - LeachChristina - 11/08/2024 11:34 AM EDT Patient called to advise she is being discharged. She advised she was given very bad news, is beinggiven antibiotics. Please advise Christina Leach [facility]08-15-2025 Discharge summary [facility] Medical Records Department [address] [place] [address] Instructions for Home/Discharge Instructions 11/08/24 1131 MR#: [id number] Acct: [id number] Name: LAKESHA KOCH Rep #:[id number] : 1960 64 From: Saroj dao DO PCP: Aubrey Lopez MECHANIC SENIOR-C Status:ADM IN Discharge Instructions DC O2, CPAP, BIPAP needs Home O2 Discharge instructions: No Dressing / Incision Discharge Activity: No Restrictions Follow Up Care Test Results: Test results from this visit will be discussed in further detail at your follow- up appointment, if applicable. Discharge Plan Admission Admit Date/Time: 11/07/24 15:14 Primary Reason for Your Visit: abdominal pain w/ diarrhea Attending Provider: Saroj Puga Primary Care Provider: Aubrey Lopez Consulting Providers: Annette Mendez Discharge Orders/Prescriptions Prescriptions: New vancomycin [Firvanq] 25 mg/mL Recon Soln 125 mg PO Q6 9 Days Qty: 180 0RF Continued sertraline 50 mg tablet 50 mg PO DAILY alendronate 70 mg tablet 70 mg PO QWEEK Patient Comments: Take once a week on Saturdays. buspirone 7.5 mg tablet 7.5 mg PO DAILY hydromorphone 2 mg Tablet 2 - 4 mg PO Q4H PRN PRN (Reason: PAIN 6-10) 7 Days Qty: 42 0RF methocarbamol 750 mg Tablet 750 mg PO Q8 30 Days Qty: 90 0RF lidocaine 5 % Adhesive Patch,Medicated 2 patch topical DAILY 30 Days Qty: 60 0RF gabapentin 100 mg Capsule 100 mg PO QHS 30 Days Qty: 30 0RF ondansetron 4 mg Tablet,Disintegrating 4 mg PO Q8H PRN PRN (Reason: Nausea) 30 Days Qty: 90 0RF hydroxyzine pamoate 25 mg Capsule 50 mg PO TID PRN PRN (Reason: Itching) 30 Days Qty: 90 0RF Discontinued acetaminophen 500 mg Tablet 1,000 mg PO Q8 Qty: 0 0RF Referrals / Follow Up: Aubrey Lopez, MECHANIC SENIOR-C [Primary Care Provider] - Disposition Disposition (needs filled in before D/C Order can be placed): Home, Self Care 11/08/24 1133Arashawn Puga DO CC: Dr. Annette Mendez MD; Aubrey CURIEL MECHANIC SENIOR-C Jessica ~ Donna [facility]08-15-2025 [facility] Medical Records Department [address] [place] [address] Discharge Summary 11/08/24 1131 MR#: [id number] Acct: [id number] Name: LAKESHA KOCH ILENE Rep #: [id number] : 1960 64 From: Saroj Puga DO PCP: Aubrey Lopez MECHANIC SENIORNeptali Status:DIS IN Location: MN3 [id number] Providers Date of Admission: 11/07/24 Date of Discharge: 11/08/24 Primary Care Physician: VEENA Kothari, MIRTA Reason For Visit: ABDOMINAL PAIN, COLITIS, LIVER LESIONS Diagnosis Discharge Diagnosis (1) Abdominal pain: Status: Acute Code(s): R10.9 - Unspecified abdominal pain Medications at Discharge Home Medications alendronate 70 mg tablet 70 mg PO QWEEK [facility] 10/18/23 buspirone 7.5 mg tablet 7.5 mg PO DAILY Mood 10/18/23 sertraline 50 mg tablet 50 mg PO DAILY Mood 10/18/23 gabapentin 100 mg capsule 100 mg PO QHS 30 days #30 caps 09/12/24 hydromorphone 2 mg tablet 2 - 4 mg (1 - 2 x 2 mg) PO Q4H PRN PRN PAIN 6-10 7 days #42 tabs 09/12/24 hydroxyzine pamoate 25 mg capsule 50 mg (2 x 25 mg) PO TID PRN PRN Itching 30 days #90 caps 09/12/24 lidocaine 5 % topical patch 2 patch topical DAILY 30 days #60 ea 09/12/24 methocarbamol 750 mg tablet 750 mg PO Q8 30 days #90 tabs 09/12/24 ondansetron 4 mg disintegrating tablet 4 mg PO Q8H PRN PRN Nausea 30 days #90 tabs 09/12/24 vancomycin 25 mg/mL oral solution (Firvanq) 125 mg (5 mL) PO Q6 9 days #180 mL 11/08/24 Hospital Course Operations None Procedures - (CT abdomen pelvis, MRI abdomen) Summary of Care Provided Minutes Spent on Discharge: 35 Hospital Course: Patient is a 64-year-old female who presented to [facility] ED on 11/07/2024 with abdominal pain and diarrhea. Short hospital course as noted below. Patient discharged home in stable condition on 11/08. 1. Colitis ??? Presented with abdominal pain and diarrhea. CT abdomen pelvis showed findings suggestive of colitis of the transverse and descending colon (is status post right hemicolectomy as below). C. difficile toxin negative but antigen was positive. Started on p.o. vancomycin on admission and patient had cessation of diarrhea by late evening on day of admission. Unclear if colitis is secondary to C. difficile colitis versus due to initiation of new chemotherapy as below, given symptoms resolved more quickly than would be expected for C. difficile. Notably did have WBC count of 19 on admit, improved to 12 on hospital day 2. No fevers noted. Will empirically treat with 10- day course of p.o. vancomycin on discharge. Further management of cancer and chemotherapy agents per oncology as below. 2. Colon cancer with suspected new hepatic metastases ??? Follows with Dr. Poole. Unable to review his office notes. Per notes in our chart and patient report, patient was hospitalized here in August 2023 for acute 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 with perforation. Followed with surgery in the office and repeat CT scans noted continued thickening of the terminal ileum. Patient was seen at [facility] around that time and was found to have right- sided colon cancer s/p right sided hemicolectomy. She was then initiated on oral chemotherapy. Per her report, initially had good response to treatment but then had worsening symptoms this spring, and on imaging she was found to have recurrent cancer. Recently had Mediport placed and was initiated on FOLFOX chemotherapy. She received her first dose of FOLFOX 2 days prior to this admission. As above, unclear if this contributed to her presentation with colitis as above. Importantly, CT abdomen pelvis on admit showed numerous small hepatic lesions concerning for metastases. MRI abdomen confirmed multiple small hepatic lesions most consistent with hepatic metastasis. No further inpatient needs but will need close outpatient follow-up with oncology on discharge. 3. Hypokalemia, resolved ??? Potassium 3.0 on admit, repleted with improvement to 3.8 on hospital day 2. 4. Anxiety/depression ??? Patient with known history of significant anxiety with depression. On hospital day 2 after being told of concern for new areas of cancer in her liver, she became very anxious and was asking to leave the hospital. Given her significant improvement in colitis symptoms with improving lab findings, as well as for tolerating a transitional diet without issue, decision was made to discharge the patient home midday. Continue home medications at discharge. 5. Chronic normocytic anemia ??? Hemoglobin 10.5 on admit, decreased to 9.1 on hospital day 2 after significant IV fluid resuscitation. Baseline hemoglobin appears to be around 9-11. Patient denies any dark or bloody stools. Recommend repeat CBC in 1 week to ensure that hemoglobin remains stable. 6. Underweight BMI ??? BMI 15.8 on admit. Presumed secondary to cancer as above. Recommended increase protein intake on discharge as able. Total (more content not included)...[facility]08-14-2025 Progress note Author Annette Mendez [facility] Note Date/Time November 07, 2024 8: 28pm [facility] Medical Records Department [address] [place] [address] Progress Note - Hospitalist 11/07/24 1818 MR#: [id number] Acct: [id number] Name: LAKESHA KOCH ILENE Rep #:[id number] : 1960 64 From: Annette Mendez MD PCP: Aubrey Lopez [facility] MECHANIC SENIOR-C Status:ADM IN Location: MS3 [id number] Hospitalist Note Received page regarding patient's history of seizures. Reportedly she has a history of episodes where she will get a d?j? vu-like feeling and then will feeltremors and then a hot flash, this happens intermittently and has happened a couple times today (this had not been endorsed at time of admission) but was endorsed on the floor. Reviewed records and appears patient was on Depakote at one point. She reports she was taken off of Depakote and had what sounds to be a long-term EEG that was never able to capture any of the episodes and she has not presently on Depakote or any other antiseizure medication. Patient does nothave any full body tremors or loss of consciousness during these episodes, reportedly 1 happened while nurse was in the room with patient and she notified the nurse that was happening and the only thing that was outwardly noticeable when she held her hand out was a little bit of a tremor and the episode passed without any incident. Doubt ordering this by EEG would capture these episodes given this was unsuccessful in the past and they are sporadic, given patient wastaken off of antiseizure medication it is unclear long-term diagnosis or goal. Advised to let me know if patient continues to have further episodes, if so we will consider restarting her Depakote and she can follow-up outpatient with her providers for further determination treatment and/or workup 11/07/241821 <Electronically signed by Annette Mendez MD> Cosigner Signature (if applicable): CC: ~ Signed ADDENDUM by Dr. Annette Mendez MD on 11/07/24 at 1917 Addendum Spoke with pt directly when she reports that with these episodes she never lose consciousness and never falls, she is able to speak through them, they are not currently more frequent than usual and are very consistent with the symptoms shehas been having for a while, did confirm that she was taken off of Depakote and is not on any antiepileptics. Discussed further workup and potential treatment versus conservative management given there has been no acute change and she already follows outpatient, with shared decision making decided no further workup at this time and we will not start any antiseizure medications, advised patient to let us know if any symptoms change or any other concerns arise. Patient verbalized understanding 11/07/241917<Electronically signed by Annette Mendez MD> Cosigner Signature (if applicable): cc: ~* Signed ADDENDUM by Dr. Annette Mendez MD on 11/07/24 at 2027 Addendum Cdiff positive, multiple episodes of diarrhea, starting oral vanc 11/07/242027<Electronically signed by Annette Mendez MD> Cosigner Signature (if applicable): cc: ~* Signed [facility] Work Phone: 1(400) 940-422208-14-2025 Progress note [facility] Medical Records Department [address] [place] [address] Progress Note - Hospitalist 11/07/24 181 MR#: [id number] Acct: [id number] Name: LAKESHA KOCH Rep #:[id number] : 1960 64 From: Annette Mendez MD PCP: Aubrey Lopez [facility] MECHANIC SENIOR-C Status:ADM IN Location: MS3 [id number] Hospitalist Note Received page regarding patient's history of seizures. Reportedly she has a history of episodes where she will get a d?j? vu-like feeling and then will feeltremors and then a hot flash, this happens intermittently and has happened a couple times today (this had not been endorsed at time of admission) but was endorsed on the floor. Reviewed records and appears patient was on Depakote at one point.She reports she was taken off of Depakote and had what sounds to be a long-term EEG that was never able to capture any of the episodes and she has not presently on Depakote or any other antiseizure medication. Patient does nothave any full body tremors or loss of consciousness during these episodes, reportedly 1 happened while nurse was in the room with patient and she notified the nurse that washappening and the only thing that was outwardly noticeable when she held her hand out was a little bit of a tremor and the episode passed without any incident. Doubt ordering this by EEG would capture these episodes given this was unsuccessful in the past and they are sporadic, given patient wastaken off of antiseizure medication it is unclear long-term diagnosis or goal. Advised to let me know if patient continues to have further episodes, if so we will consider restarting her Depakote and shecan follow-up outpatient with her providers for further determination treatment and/or workup 11/07/241821 Cosigner Signature (if applicable): CC: ~ Signed ADDENDUM by Dr. Annette Mendez MD on 11/07/24 at 1918 Addendum Spoke with pt directly when she reports that with these episodes she never lose consciousness and never falls, she is able to speak through them, they are not currently more frequent than usual and are very consistent with the symptoms shehas been having for a while, did confirm that she was taken off of Depakote and is not on any antiepileptics. Discussed further workup and potential treatment versus conservative management given there has been no acute change and she already follows outpatient, with shared decision making decided no further workup at this time and we will not start any antiseizure medications, advised patient to let us know if any symptoms change or any other concerns kavon e. Patient verbalized understanding 11/07/241917 Cosigner Signature (if applicable): cc: ~* Signed ADDENDUM by Dr. Annette Mendez MD on 11/07/24 at 2027 Addendum Cdiff positive, multiple episodes of diarrhea, starting oral vanc 11/07/242027 Cosigner Signature (if applicable): cc: ~* Signed [facility]08-14-2025 History and physical note Author Annette Mendez [facility] Note Date/Time November 07, 2024 3: 29pm [facility] Medical Records Department [address] [place] [address] H&P Exam - Hospitalist 11/07/24 1514 MR#: [id number] Acct: [id number] Name: LAKESHA KOCH Rep #:[id number] : 1960 64 From: Annette Mendez MD PCP: Aubrey Lopez MECHANIC SENIOR-C Status:REG ER Location: ED HPI - General General Date of Admission: 11/07/24 Date of Service: 11/07/24 Chief Complaint: Abdominal pain HPI Narrative LAKESHA KOCH, is a 64-year-old female history of recurrent colon cancer, GERD, recent port placement and first dose of chemotherapy, anxiety who presented [facility] ED 11/07/2024 for abdominal pain. She has a history of 2 colon resections at [facility] and had port placed and just started chemotherapy with first infusion yesterday and at 3 AM she developed lower abdominal pain, nausea, and vomiting. No diarrhea. In the ED temp 97.4, heart rate 83 and blood pressure 125/59, respiratory rate 20 and pulse ox 99% on room air. CBC with a white blood cell count of 19.9, hemoglobin 10.5, CMP with potassium of 3 and glucose 145, BUN 15 and creatinine 0.58 with normal liver panel, lactic 2.2 and lipase of 29. She did have CT abdomen pelvis with findings suggestive of hepatic metastasis and/or small abscesses and recommendedclinical correlation, also showed findings suggestive of colitis of the transverse colon and descending colon. Patient given IV fluids and Zosyn, medications for pain control and hospitalist contacted for admission. Patient evaluated at bedside. She reports history as above and notes that she has had nausea, vomiting, diarrhea and abdominal pain more so in her lower abdomen sinceovernight, initially went to the out Patient [facility] and they sent her to the ED. Continues to have the pain in the lower abdomen, denies right upper quadrant or upper abdominal pain, denies any fevers at home, no cough, chest pain, shortness of breath. Does report she feels she has had a little bit of a hard time emptying her bladder. [facility] Medical History Seizure disorder Hypotension Marijuana abuse Alcohol dependence ETOH abuse IBS (irritable bowel syndrome) Anxiety Depression Seizure Home Medications ?Medication ?Instructions ?Recorded ?Last Taken ?Type alendronate 70 mg tablet 70 mg PO QWEEK [facility] 0 10/18/23 Unknown History buspirone 7.5 mg tablet 7.5 mg PO DAILY Mood 4 09/04/24 08:50 History sertraline 50 mg tablet 50 mg PO DAILY Mood 10/18/23 09/04/24 08:50 History acetaminophen 500 mg tablet 1,000 mg (2 x 500 mg) PO Q 8 #0 tabs 09/12/24 Unknown Rx gabapentin 100 mg capsule 100 mg PO QHS 30 days #30 ca ps 09/12/24 Unknown Rx hydromorphone 2 mg tablet 2 - 4 mg (1 - 2 x 2 mg) PO Q 4H PRN 09/12/24 Unknown Rx PRN PAIN 6-10 7 days #42 tabs hydroxyzine pamoate 25 mg capsule 50 mg (2 x 25 mg) PO TID PRN PRN 09/12/24 Unknown Rx Itching 30 days #90 caps lidocaine 5 % topical patch 2 patch topical DAILY 30 d ays #60 09/12/24 Unknown Rx ea methocarbamol 750 mg tablet 750 mg PO Q8 30 days #90 t abs 06/19/25 Unknown Rx ondansetron 4 mg disintegrating 4 mg PO Q8H PRN PRN Na usea 30 days 09/12/24 Unknown Rx tablet #90 tabs Allergy/AdvReac Type Severity Reaction Status Date / Time erythromycin base Allergy TONGUE Verified 11/07/24 11:22 PEELS Family History Sister Melanoma Father Prostate CA Surgical History History of placement of ureteral stent History of resection of small bowel History of right salpingo-oophorectomy History of lysis of adhesions History of exploratory laparotomy 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 Social History household members: none housing: apartment Smoking Status: Former smoker alcohol intake: former year quit: 2020 substance use type: marijuana ROS ROS Narrative General: Denies fever/chills HENT: Denies headache, denies stuffy nose, denies sore throat EYES: Denies changes in vision Resp: Denies cough, denies shortness of breath Cardiac: Denies chest pain GI: abd pain specifically in lower quadrants, diarrhea, n/v : Does feel she has had a little bit of a hard time emptying her bladder Extremity: Denies swelling MSK: Denies weakness Neuro: Denies any numbness/tingling Heme: Denies any bleeding or bruising Skin: Denies rashes Psychiatric: No complaints voiced Vital Signs Vital Signs Vital Signs: 11/07/24 11:18 11/07/24 14:20 Temperature 97.4 F L Temperature Source Temporal Pulse Rate 83 85 Respiratory Rate 20 H 16 Blood Pressure 125/59 H 114/60 Blood Pressure Mean 81 78 Pulse Ox 99 99 Oxygen Delivery Method Room Air Weight Weight: 39 kg Body Mass Index (BMI) 14.7 Physical Exam Narrative General: Alert, oriented HEENT: Atraumatic, normocephalic Eyes: Anicteric, normal conjunctiva, extraocular movements grossly intact Neck: Supple Respiratory: Clear to auscultation bilaterally, normal respiratory effort Cardiovascular: Regular rate and rhythm GI: Soft, some tenderness in the suprapubic and lower quadrants, no epigastric or right upper quadrant pain Extremities: No edema Musculoskeletal: Moving all extremities Neuro: No overt focal neurological deficits Skin: No rashes appreciated Psych: Cooperative Results Lab / Micro Data 11/07/24 12:25 11/07/24 12:25 Labs: Laboratory Results - last 24 hr 11/07/24 12:25: WBC 19.9 H, RBC 3.43 L, Hgb 10.5 L, Hct 30.3 L, MCV 88.3, MCH 30.6, MCHC 34.7, RDW Std Deviation 42.7, RDW Coeff of Yury 13.3, Plt Count 283, MPV 9.5, Immature Gran % (Auto) 0.600, Neut % (Auto) 90.3 H, Lymph % (Auto) 5.6 L, Campbell % (Auto) 3.3, Eos % (Auto) 0.0, Baso % (Auto) 0.2, Absolute Neuts (auto)18.0 H, Absolute Lymphs (auto) 1.12, Nucleated RBC % 0, Sodium 140, Potassium 3.0 L, Chloride 104, Carbon Dioxide 21.4, Anion Gap 14, BUN 15, Creatinine 0.58 L, Estim Creat Clear Calc 43.16 L, Est GFR (MDRD) Non-Af 100, BUN/Creatinine Ratio 24.9 H, Glucose 145 H, Lactic Acid 2.2 H*, Calcium 8.7, Total Bilirubin 0.19, AST 23, ALT 10, Alkaline Phosphatase 74, Total Protein 6.5, Albumin 3.8, Globulin 2.7, Albumin/Globulin Ratio 1.4, Lipase 29 Imaging Radiology Impression Abdomen/Pelvis CT 11/07/24 12:17 IMPRESSION: Findings suggestive of hepatic metastasis and/or small abscesses. Clinical correlation recommended. Status post right hemicolectomy. Findings suggestive of colitis of the transverse colon and descending colon. Small amount of free fluid is seen in the pelvis. Reading Location: [facility] Assessment & Plan Assessment/Plan (1) Abdominal pain: PLAN: Plan # Abdominal pain, nausea, vomiting suspect secondary to colitis -Colitis seen on CT scan -Elevated white blood cell count -IV fluids, Zosyn -Supportive care -Given her reports of additional diarrhea we will check stool studies if able - Transitional diet, advance as tolerated -UA pending # Hepatic lesions -More likely hepatic metastasis but cannot rule out abscesses given concern for infection -Liver function tests on CMP within normal limits -Patient on Zosyn -Will order MRI for better characterization as that would likely change treatment # Recurrent colon cancer -Following with the [facility] -Has Mediport and had her first chemotherapy yesterday -Will continue to follow with them on discharge #Hypokalemia -Replace -Repeat in the AM #Depression/anxiety -Continue home medications #DVT ppx: SCDs Annette Mendez MD Charges/Coding Visit Charges Inpatient E&M: 87849 Init Hosp L2 11/07/24 1529 <Electronically signed by Annette Mendez MD> Cosigner Signature (if applicable): CC: Dr. Annette Mendez MD; Aubrey CURIEL MECHANIC SENIOR-C Jessica~ Signed [facility] Work Phone: [phone]) 840-259008-14-2025 Discharge summary Author Lluvia Vann [facility] Note Date/Time November 07, 2024 3: 12pm [facility] Medical Records Department [address] [place] [address] Emergency Department Summary 11/07/24 MR#: [id number] Acct: [id number] Name: LAKESHA KOCH Rep #:[id number] : 1960 64 From: Lluvia Vann MD PCP: Aubrey Lopez MECHANIC SENIOR-C Status:REG ER Location: ED HPI HPI - GI History of Present Illness Chief Complaint: Abd Pain Narrative Narrative: Patient is a 64-year-old female presenting to the emergency department for abdominal pain. Patient has a past medical history of recurrent colon cancer, 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, GERD, seizure disorder. History in the patient is limited in our charts however patient states that she has had 2 colon resection surgeries. Hasa prior surgical history of a appendectomy as well. Patient states that she recently had a pump placed. On chart review appears to be a mediport. States that she received her first infusion yesterday and at 3 AM she developed lower abdominal pain, nausea and vomiting. She describes the vomit as nonbloody, nonbilious. Denies diarrhea, dysuria or hematuria. [facility] Medical History Seizure disorder Hypotension Marijuana abuse Alcohol dependence ETOH abuse IBS (irritable bowel syndrome) Anxiety Depression Seizure Home Medications ?Medication ?Instructions ?Recorded ?Last Taken ?Type alendronate 70 mg tablet 70 mg PO QWEEK [facility] 0 10/18/23 Unknown History buspirone 7.5 mg tablet 7.5 mg PO DAILY Mood 4 09/04/24 08:50 History sertraline 50 mg tablet 50 mg PO DAILY Mood 10/18/23 09/04/24 08:50 History acetaminophen 500 mg tablet 1,000 mg (2 x 500 mg) PO Q 8 #0 tabs 09/12/24 Unknown Rx gabapentin 100 mg capsule 100 mg PO QHS 30 days #30 ca ps 09/12/24 Unknown Rx hydromorphone 2 mg tablet 2 - 4 mg (1 - 2 x 2 mg) PO Q 4H PRN 09/12/24 Unknown Rx PRN PAIN 6-10 7 days #42 tabs hydroxyzine pamoate 25 mg capsule 50 mg (2 x 25 mg) PO TID PRN PRN 09/12/24 Unknown Rx Itching 30 days #90 caps lidocaine 5 % topical patch 2 patch topical DAILY 30 d ays #60 09/12/24 Unknown Rx ea methocarbamol 750 mg tablet 750 mg PO Q8 30 days #90 t abs 09/12/24 Unknown Rx ondansetron 4 mg disintegrating 4 mg PO Q8H PRN PRN Na usea 30 days 09/12/24 Unknown Rx tablet #90 tabs Allergy/AdvReac Type Severity Reaction Status Date / Time erythromycin base Allergy TONGUE Verified 11/07/24 11:22 PEELS Family History Sister Melanoma Father Prostate CA Surgical History History of placement of ureteral stent History of resection of small bowel History of right salpingo-oophorectomy History of lysis of adhesions History of exploratory laparotomy 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 No acute distress. Chronically unwell appearing. HEENT: Head is normocephalic and atraumatic, sinuses nontender, pupils equal round and reactive. Nares are patent. Oropharynx and throat exams normal. Neck: Supple without lymphadenopathy nontender Cardiovascular: Regular rate and rhythm, no murmurs. No rubs or gallops. Normal S1 and S2 Respiratory: Clear to auscultation bilaterally. No wheezes, rales, rhonchi Abdominal: Soft and tender to palpation diffusely in the lower abdomen. Normal bowel sounds. No guarding or rebound. Nonsurgical abdomen Extremities: No tenderness. No bruising. Normal range of motion. Normal sensation. Skin: No rash or redness. Neurological: Cranial nerves II through XII are grossly intact. Normal strengthand sensation. Normal cerebellar function The rest of the physical exam is unremarkable Const Vital Signs: 11/07/24 11:18 11/07/24 14:20 Temperature 97.4 F L Temperature Source Temporal Pulse Rate 83 85 Respiratory Rate 20 H 16 Blood Pressure 125/59 H 114/60 Blood Pressure Mean 81 78 Pulse Ox 99 99 Oxygen Delivery Method Room Air MDM MDM MDM Narrative Medical decision making narrative: Patient is a 64-year-old female presenting to emergency department for abdominalpain, nausea and vomiting. Patient was seen and examined. Vitals are stable. Patient resting in bed comfortably. No acute distress, does appear uncomfortable. Differential includes but is not limited to: Medication side effect, bowel obstruction, bowel perforation, UTI, diverticulitis Patient given analgesia, took zofran before coming, declines antiemetic. CBC with a leukocytosis of 19.9 and anemia of 10.5. Lactate elevated at 2.2. CMP with hypokalemia of 3.0. Lipase within normal limits. CT shows findings suggestive of hepatic metastasis and/or small abscesses. Clinical correlation recommended. Status post right hemicolectomy. Findings suggestive of colitis of the transverse colon and descending colon.Small amount of free fluid is seen in the pelvis. Discussed findings with patient and friend at bedside. I suspect that the patient's pain is secondary to her colitis and we incidentally found the liver changes. She does not have any risk factors for liver abscesses. Will cover with Zosyn for coverage of both the possible abscesses and colitis. Given the high leukocytosis and her lactic will require admission. Patient admitted to hospitalist for further management. Clinical impression: 1. Colitis 2. Leukocytosis 3. Nausea and vomiting History & Record Review Discussion w/independent historian: Patient and Friend Lab Data Attestation: I reviewed the patient's lab results. Labs: Laboratory Results - last 24 hr 11/07/24 12:25 WBC 19.9 H RBC 3.43 L Hgb 10.5 L Hct 30.3 L MCV 88.3 MCH 30.6 MCHC 34.7 RDW Std Deviation 42.7 RDW Coeff of Yury 13.3 Plt Count 283 MPV 9.5 Immature Gran % (Auto) 0.600 Neut % (Auto) 90.3 H Lymph % (Auto) 5.6 L Campbell % (Auto) 3.3 Eos % (Auto) 0.0 Baso % (Auto) 0.2 Absolute Neuts (auto) 18.0 H Absolute Lymphs (auto) 1.12 Nucleated RBC % 0 Sodium 140 Potassium 3.0 L Chloride 104 Carbon Dioxide 21.4 Anion Gap 14 BUN 15 Creatinine 0.58 L Estim Creat Clear Calc 43.16 L Est GFR (MDRD) Non-Af 100 BUN/Creatinine Ratio 24.9 H Glucose 145 H Lactic Acid 2.2 H* Calcium 8.7 Total Bilirubin 0.19 AST 23 ALT 10 Alkaline Phosphatase 74 Total Protein 6.5 Albumin 3.8 Globulin 2.7 Albumin/Globulin Ratio 1.4 Lipase 29 Radiography Diagnostic Testing: Clinical Impression(s) from Imaging Studies Abdomen/Pelvis CT 11/07/24 12:17 IMPRESSION: Findings suggestive of hepatic metastasis and/or small abscesses. Clinical correlation recommended. Status post right hemicolectomy. Findings suggestive of colitis of the transverse colon and descending colon. Small amount of free fluid is seen in the pelvis. Reading Location: [place] [address] Discharge Plan Triage Chief Complaint: Abd Pain ED Provider: Lluvia Vann Dx/Rx/DC Orders Prescriptions: No Action sertraline 50 mg tablet 50 mg PO DAILY alendronate 70 mg tablet 70 mg PO QWEEK Patient Comments: Take once a week on Saturdays. buspirone 7.5 mg tablet 7.5 mg PO DAILY acetaminophen 500 mg Tablet 1,000 mg PO Q8 Qty: 0 0RF hydromorphone 2 mg Tablet 2 - 4 mg PO Q4H PRN PRN (Reason: PAIN 6-10) 7 Days Qty: 42 0RF methocarbamol 750 mg Tablet 750 mg PO Q8 30 Days Qty: 90 0RF lidocaine 5 % Adhesive Patch,Medicated 2 patch topical DAILY 30 Days Qty: 60 0RF gabapentin 100 mg Capsule 100 mg PO QHS 30 Days Qty: 30 0RF ondansetron 4 mg Tablet,Disintegrating 4 mg PO Q8H PRN PRN (Reason: Nausea) 30 Days Qty: 90 0RF hydroxyzine pamoate 25 mg Capsule 50 mg PO TID PRN PRN (Reason: Itching) 30 Days Qty: 90 0RF Primary Care Provider: uAbrey Lopez Referrals: Aubrey Lopez, MECHANIC SENIOR-C [Primary Care Provider] - Print Language: Tajik What to do if you have Problems For any increased pain, shortness of breath, bleeding, nausea or vomiting, chestpain, or any unexpected problems, contact your Primary Care Provider. Call [facility] ([phone]) or report to the closest Emergency Room. Call 911 if necessary. 11/07/24 151 <Electronically signed by Lluvia Vann MD> Cosigner Signature (if applicable): CC: Aubrey CURIEL MECHANIC SENIOR-C Jessica ~ Signed [facility] Work Phone: 1(217) 594-451608-14-2025 History and physical note [facility] Medical Records Department [address] [place] [id number] H&P Exam - Hospitalist 11/07/24 1514 MR#: [id number] Acct: [id number] Name: LAKESHA KOCH ILENE Rep #:[id number] : 1960 64 From: Annette Mendez MD PCP: Aubrey Lopez MECHANIC SENIORNeptali Status:REG ER Location: ED HPI - General General Date of Admission: 11/07/24 Date of Service: 11/07/24 Chief Complaint: Abdominal pain HPI Narrative LAKESHA KOCH, is a 64-year-old female history of recurrent colon cancer, GERD, recent port placement and first dose of chemotherapy, anxiety who presented [facility] ED 11/07/2024 for abdominal pain. She has a history of 2 colon resections at [facility] and had port placed and just started chemotherapy with first infusion yesterday and at 3 AM she developed lower abdominal pain, nausea, and vomiting. No diarrhea. In the ED temp 97.4, heart rate 83 and blood pressure 125/59,respiratory rate 20 and pulse ox 99% on room air. CBC with a white blood cell count of 19.9, hemoglobin 10.5, CMP with potassium of 3 and glucose 145, BUN 15 and creatinine 0.58 with normal liver panel, lactic 2.2 and lipase of 29. She did have CT abdomen pelvis with findings suggestive of hepatic metastasis and/or small abscesses and recommendedclinical correlation, also showed findings suggestive of colitis of the transverse colon and descending colon. Patient given IV fluids and Zosyn, medications for pain control and hospitalist contacted for admission. Patient evaluated at bedside. She reports history as above and notes that she has had nausea, vomiting, diarrhea and abdominal pain more so in her lower abdomen sinceovernight, initially went to the out Patient [facility] and they sent her to the ED. Continues to have the pain in the lower abdomen, denies right upper quadrant or upper abdominal pain, denies any fevers at home, no cough, chest pain, shortness of breath. Does report she feels she has had a little bit of a hard time emptying her bladder. [facility] Medical History Seizure disorder Hypotension Marijuana abuse Alcohol dependence ETOH abuse IBS (irritable bowel syndrome) Anxiety Depression Seizure Home Medications ?Medication ?Instructions ?Recorded ?Last Taken ?Type alendronate 70 mg tablet 70 mg PO QWEEK Bone Health 0 10/18/23 Unknown History buspirone 7.5 mg tablet 7.5 mg PO DAILY Mood 4 09/04/24 08:50 History sertraline 50 mg tablet 50 mg PO DAILY Mood 10/18/23 09/04/24 08:50 History acetaminophen 500 mg tablet 1,000 mg (2 x 500 mg) PO Q 8 #0 tabs 09/12/24 Unknown Rx gabapentin 100 mg capsule 100 mg PO QHS 30 days #30 ca ps 09/12/24 Unknown Rx hydromorphone 2 mg tablet 2 - 4 mg (1 - 2 x 2 mg) PO Q 4H PRN 09/12/24 Unknown Rx PRN PAIN 6-10 7 days #42 tabs hydroxyzine pamoate 25 mg capsule 50 mg (2 x 25 mg) PO TID PRN PRN 09/12/24 Unknown Rx Itching 30 days #90 caps lidocaine 5 % topical patch 2 patch topical DAILY 30 d ays #60 09/12/24 Unknown Rx ea methocarbamol 750 mg tablet 750 mg PO Q8 30 days #90 t abs 09/12/24 Unknown Rx ondansetron 4 mg disintegrating 4 mg PO Q8H PRN PRN Na usea 30 days 09/12/24 Unknown Rx tablet #90 tabs Allergy/AdvReac Type Severity Reaction Status Date / Time erythromycin base Allergy TONGUE Verified 11/07/24 11:22 HALIMA Family History Sister Melanoma Father Prostate CA Surgical History History of placement of ureteral stent History of resection of small bowel History of right salpingo-oophorectomy History of lysis of adhesions History of exploratory laparotomy 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 Social History household members: none housing: apartment Smoking Status: Former smoker alcohol intake: former year quit: 2020 substance use type: marijuana ROS ROS Narrative General: Denies fever/chills HENT: Denies headache, denies stuffy nose, denies sore throat EYES: Denies changes in vision Resp: Denies cough, denies shortness of breath Cardiac: Denies chest pain GI: abd pain specifically in lower quadrants, diarrhea, n/v : Does feel she has had a little bit of a hard time emptying her bladder Extremity: Denies swelling MSK: Denies weakness Neuro: Denies any numbness/tingling Heme: Denies any bleeding or bruising Skin: Denies rashes Psychiatric: No complaints voiced Vital Signs Vital Signs Vital Signs: 11/07/24 11:18 11/07/24 14:20 Temperature 97.4 F L Temperature Source Temporal Pulse Rate 83 85 Respiratory Rate 20 H 16 Blood Pressure 125/59 H 114/60 Blood Pressure Mean 81 78 Pulse Ox 99 99 Oxygen Delivery Method Room Air Weight Weight: 39 kg Body Mass Index (BMI) 14.7 Physical Exam Narrative General: Alert, oriented HEENT: Atraumatic, normocephalic Eyes: Anicteric, normal conjunctiva, extraocular movements grossly intact Neck: Supple Respiratory: Clear to auscultation bilaterally, normal respiratory effort Cardiovascular: Regular rate and rhythm GI: Soft, some tenderness in the suprapubic and lower quadrants, no epigastric or right upper quadrant pain Extremities: No edema Musculoskeletal: Moving all extremities Neuro: No overt focal neurological deficits Skin: No rashes appreciated Psych: Cooperative Results Lab / Micro Data 11/07/24 12:25 11/07/24 12:25 Labs: Laboratory Results - last 24 hr 11/07/24 12:25: WBC 19.9 H, RBC 3.43 L, Hgb 10.5 L, Hct 30.3 L, MCV 88.3, MCH 30.6, MCHC 34.7, RDW Std Deviation 42.7, RDW Coeff of Yury 13.3, Plt Count 283, MPV 9.5, Immature Gran % (Auto) 0.600, Neut % (Auto) 90.3 H, Lymph % (Auto) 5.6 L, Campbell % (Auto) 3.3, Eos % (Auto) 0.0, Baso % (Auto) 0.2, Absolute Neuts (auto)18.0 H, Absolute Lymphs (auto) 1.12, Nucleated RBC % 0, Sodium 140, Potassium 3.0 L, Chloride 104, Carbon Dioxide 21.4, Anion Gap 14, BUN 15, Creatinine 0.58 L, Estim Creat Clear Calc 43.16 L, Est GFR (MDRD) Non-Af 100, BUN/Creatinine Ratio 24.9 H, Glucose 145 H, Lactic Acid 2.2 H*, Calcium 8.7, Total Bilirubin 0.19, AST 23, ALT 10, Alkaline Phosphatase 74, Total Protein 6.5, Albumin 3.8, Globulin 2.7, Albumin/Globulin Ratio 1.4, Lipase 29 Imaging Radiology Impression Abdomen/Pelvis CT 11/07/24 12:17 IMPRESSION: Findings suggestive of hepatic metastasis and/or small abscesses. Clinical correlation recommended. Status post right hemicolectomy. Findings suggestive of colitis of the transverse colon and descending colon. Small amount of free fluid is seen in the pelvis. Reading Location: [facility] Assessment & Plan Assessment/Plan (1) Abdominal pain: PLAN: Plan # Abdominal pain, nausea, vomiting suspect secondary to colitis -Colitis seen on CT scan -Elevated white blood cell count -IV fluids, Zosyn -Supportive care -Given her reports of additional diarrhea we will check stool studies if able - Transitional diet, advance as tolerated -UA pending # Hepatic lesions -More likely hepatic metastasis but cannot rule out abscesses given concern for infection -Liver function tests on CMP within normal limits -Patient on Zosyn -Will order MRI for better characterization as that would likely change treatment # Recurrent colon cancer -Following with the [facility] -Has Mediport and had her first chemotherapy yesterday -Will continue to follow with them on discharge #Hypokalemia -Replace -Repeat in the AM #Depression/anxiety -Continue home medications #DVT ppx: SCDs Annette Mendez MD Charges/Coding Visit Charges Inpatient E&M: 10783 Init Hosp L2 11/07/24 8695 Cosigner Signature (if applicable): CC: Dr. Annette Mendez MD; Aubrey Tana MECHANIC SENIOR-C Beam~ Signed [facility]08-14-2025 Discharge summary [facility] Medical Records Department [address] [place] [address] Emergency Department Summary 11/07/24 MR#: [id number] Acct: [id number] Name: LAKESHA KOCH ILENE Rep #:[id number] : 1960 64 From: Lluvia Vann MD PCP: Aubrey Lopez MECHANIC SENIOR-C Status:REG ER Location: ED HPI HPI - GI History of Present Illness Chief Complaint: Abd Pain Narrative Narrative: Patient is a 64-year-old female presenting to the emergency department for abdominal pain. Patient has a past medical history of recurrent colon cancer, 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, GERD, seizure disorder. History in the patient is limited in our charts however patient states that she has had 2 colon resection surgeries. Hasa prior surgical history of a appendectomy as well. Patient states that she recently hada pump placed. On chart review appears to be a mediport. States that she received her first infusion yesterday and at 3 AM she developed lower abdominal pain, nausea and vomiting. She describes thevomit as nonbloody, nonbilious. Denies diarrhea, dysuria or hematuria. [facility] Medical History Seizure disorder Hypotension Marijuana abuse Alcohol dependence ETOH abuse IBS (irritable bowel syndrome) Anxiety Depression Seizure Home Medications ?Medication ?Instructions ?Recorded ?Last Taken ?Type alendronate 70 mg tablet 70 mg PO QWEEK Bone Health 0 10/18/23 Unknown History buspirone 7.5 mg tablet 7.5 mg PO DAILY Mood 4 09/04/24 08:50 History sertraline 50 mg tablet 50 mg PO DAILY Mood 10/18/23 09/04/24 08:50 History acetaminophen 500 mg tablet 1,000 mg (2 x 500 mg) PO Q 8 #0 tabs 09/12/24 Unknown Rx gabapentin 100 mg capsule 100 mg PO QHS 30 days #30 ca ps 09/12/24 Unknown Rx hydromorphone 2 mg tablet 2 - 4 mg (1 - 2 x 2 mg) PO Q 4H PRN 09/12/24 Unknown Rx PRN PAIN 6-10 7 days #42 tabs hydroxyzine pamoate 25 mg capsule 50 mg (2 x 25 mg) PO TID PRN PRN 09/12/24 Unknown Rx Itching 30 days #90 caps lidocaine 5 % topical patch 2 patch topical DAILY 30 d ays #60 09/12/24 Unknown Rx ea methocarbamol 750 mg tablet 750 mg PO Q8 30 days #90 t abs 09/12/24 Unknown Rx ondansetron 4 mg disintegrating 4 mg PO Q8H PRN PRN Na usea 30 days 09/12/24 Unknown Rx tablet #90 tabs Allergy/AdvReac Type Severity Reaction Status Date / Time erythromycin base Allergy TONGUE Verified 11/07/24 11:22 PEELS Family History Sister Melanoma Father Prostate CA Surgical History History of placement of ureteral stent History of resection of small bowel History of right salpingo-oophorectomy History of lysis of adhesions History of exploratory laparotomy 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 No acute distress. Chronically unwell appearing. HEENT: Head is normocephalic and atraumatic, sinuses nontender, pupils equal round and reactive. Nares are patent. Oropharynx and throat exams normal. Neck: Supple without lymphadenopathy nontender Cardiovascular: Regular rate and rhythm, no murmurs. No rubs or gallops. Normal S1 and S2 Respiratory: Clear to auscultation bilaterally. No wheezes, rales, rhonchi Abdominal: Soft and tender to palpation diffusely in the lower abdomen. Normal bowel sounds. No guarding or rebound. Nonsurgical abdomen Extremities: No tenderness. No bruising. Normal range of motion. Normal sensation. Skin: No rash or redness. Neurological: Cranial nerves II through XII are grossly intact. Normal strengthand sensation. Normal cerebellar function The rest of the physical exam is unremarkable Const Vital Signs: 11/07/24 11:18 11/07/24 14:20 Temperature 97.4 F L Temperature Source Temporal Pulse Rate 83 85 Respiratory Rate 20 H 16 Blood Pressure 125/59 H 114/60 Blood Pressure Mean 81 78 Pulse Ox 99 99 Oxygen Delivery Method Room Air MDM MDM MDM Narrative Medical decision making narrative: Patient is a 64-year-old female presenting to emergency department for abdominalpain, nausea and vomiting. Patient was seen and examined. Vitals are stable. Patient resting in bed comfortably. No acute distress, does appear uncomfortable. Differential includes but is not limited to: Medication side effect, bowel obstruction, bowel perforation, UTI, diverticulitis Patient given analgesia, took zofran before coming, declines antiemetic. CBC with a leukocytosis of19.9 and anemia of 10.5. Lactate elevated at 2.2. CMP with hypokalemia of 3.0. Lipase within normallimits. CT shows findings suggestive of hepatic metastasis and/or small abscesses. Clinical correlation recommended. Status post right hemicolectomy. Findings suggestive of colitis of the transverse colon and descending colon.Small amount of free fluid is seen in the pelvis. Discussed findings withpatient and friend at bedside. I suspect that the patient's pain is secondary to her colitis and weincidentally found the liver changes. She does not have any risk factors for liver abscesses. Will cover with Zosyn for coverage of both the possible abscesses and colitis. Given the high leukocytosis and her lactic will require admission. Patient admitted to hospitalist for further management. Clinical impression: 1. Colitis 2. Leukocytosis 3. Nausea and vomiting History & Record Review Discussion w/independent historian: Patient and Friend Lab Data Attestation: I reviewed the patient's lab results. Labs: Laboratory Results - last 24 hr 11/07/24 12:25 WBC 19.9 H RBC 3.43 L Hgb 10.5 L Hct 30.3 L MCV 88.3 MCH 30.6 MCHC 34.7 RDW Std Deviation 42.7 RDW Coeff of Yury 13.3 Plt Count 283 MPV 9.5 Immature Gran % (Auto) 0.600 Neut % (Auto) 90.3 H Lymph % (Auto) 5.6 L Campbell % (Auto) 3.3 Eos % (Auto) 0.0 Baso % (Auto) 0.2 Absolute Neuts (auto) 18.0 H Absolute Lymphs (auto) 1.12 Nucleated RBC % 0 Sodium 140 Potassium 3.0 L Chloride 104 Carbon Dioxide 21.4 Anion Gap 14 BUN 15 Creatinine 0.58 L Estim Creat Clear Calc 43.16 L Est GFR (MDRD) Non-Af 100 BUN/Creatinine Ratio 24.9 H Glucose 145 H Lactic Acid 2.2 H* Calcium 8.7 Total Bilirubin 0.19 AST 23 ALT 10 Alkaline Phosphatase 74 Total Protein 6.5 Albumin 3.8 Globulin 2.7 Albumin/Globulin Ratio 1.4 Lipase 29 Radiography Diagnostic Testing: Clinical Impression(s) from Imaging Studies Abdomen/Pelvis CT 11/07/24 12:17 IMPRESSION: Findings suggestive of hepatic metastasis and/or small abscesses. Clinical correlation recommended. Status post right hemicolectomy. Findings suggestive of colitis of the transverse colon and descending colon. Small amount of free fluid is seen in the pelvis. Reading Location: [place] [address] Discharge Plan Triage Chief Complaint: Abd Pain ED Provider: Lluvia Vann Dx/Rx/DC Orders Prescriptions: No Action sertraline 50 mg tablet 50 mg PO DAILY alendronate 70 mg tablet 70 mg PO QWEEK Patient Comments: Take once a week on Saturdays. buspirone 7.5 mg tablet 7.5 mg PO DAILY acetaminophen 500 mg Tablet 1,000 mg PO Q8 Qty: 0 0RF hydromorphone 2 mg Tablet 2 - 4 mg PO Q4H PRN PRN (Reason: PAIN 6-10) 7 Days Qty: 42 0RF methocarbamol 750 mg Tablet 750 mg PO Q8 30 Days Qty: 90 0RF lidocaine 5 % Adhesive Patch,Medicated 2 patch topical DAILY 30 Days Qty: 60 0RF gabapentin 100 mg Capsule 100 mg PO QHS 30 Days Qty: 30 0RF ondansetron 4 mg Tablet,Disintegrating 4 mg PO Q8H PRN PRN (Reason: Nausea) 30 Days Qty: 90 0RF hydroxyzine pamoate 25 mg Capsule 50 mg PO TID PRN PRN (Reason: Itching) 30 Days Qty: 90 0RF Primary Care Provider: Aubrey Lopez Referrals: Aubrey Lopez, MECHANIC SENIOR-C [Primary Care Provider] - Print Language: Tajik What to do if you have Problems For any increased pain, shortness of breath, bleeding, nausea or vomiting, chestpain, or any unexpected problems, contact your Primary Care Provider. Call [facility] ([phone]) or report tothe closest Emergency Room. Call 911 if necessary. 11/07/24 1512 Cosigner Signature (if applicable): CC: Aubrey CURIEL MECHANIC SENIOR-C Jessica ~ Signed [facility]08-14-2025 Telephone encounter Note* Telephone Encounter - Christina Leach - 11/07/2024 3:05 PM EDT Patient called to advise she is being admitted to [facility]. She had Cat Scans that showed she either hasColitis or Tumors on her liver. Cancelled 11/08 Hydration appointment Christina Leach [facility]08-14-2025 Radiology Diagnostic study note [facility] Imaging Services [address] [place] [address] Abdomen/Pelvis W IV Cont ONLY MR#: [id number] Acct: [id number] Name: LAKESHA KOCH Rep #: [id number] : 1960 F 64 From: Gal Thomas MD PCP: Aubrey Lopez Tana MECHANIC SENIOR-C Status: REG ER Study:Abdomen/Pelvis W IV Cont ONLY Date of E xam: 11/07/24 Exam# [id number] Ordering Dr: Nitesh Vann MD PROCEDURE: ABDOMEN/PELVIS W IV CONT ONLY 11/07/2024 REASON FOR EXAM: ABDOMINAL PAIN History of colon carcinoma. Prior resection. TECHNIQUE: ABDOMEN/PELVIS W IV CONT ONLY Coronal and Sagittal reconstruction series were provided. CONTRAST: Isovue-300 VOLUME: 75 mL One or more dose reduction techniques were used (e.g., Automated exposure control, adjustment of the mA and/or kV according to patient size, use of iterative reconstruction technique. RADIATION DOSE SUMMARY: CTDlvol: 12.36 mGy DLP: 227.06 mGycm COMPARISON: Prior study dated September 13, 2024. FINDINGS: Lung bases: Lung bases are clear. Small pericardial effusion at the base of theheart. Liver: Since prior study, there are multiple tiny hypodense nodules with rim enhancement throughoutboth the right and left lobes of the liver suggestive of possible metastatic disease. If the patient is septic, these may represent multiple small abscesses. Gallbladder: There is evidence of a 4 mm dense nodule in the inferior wall of the gallbladder. Spleen: Normal size. Pancreas: Normal size without evidence of mass surrounding inflammation or ductal dilation. Adrenals: Unremarkable Kidneys: Small cyst in the upper pole of the left kidney. Small cyst in the midportion of the rightkidney. Bladder: Unremarkable Reproductive Organs: Normal uterine size and contour. Ovaries are unremarkable. Bowel: The patient is status post right hemicolectomy. There is evidence of circumferential wall thickening and edematous changes seen in the transverse colon as well as the descending colon. This is suggestive of colitis. Appendix: Status post appendectomy. Lymph nodes: Unremarkable. Vasculature: Mild diffuse atherosclerotic calcifications are noted. Peritoneum / Retroperitoneum: Small amount of free fluid in the pelvis. Bones: Degenerative changes of the spine. CT/Abdomen/Pelvis W IV Cont ONLY IMPRESSION: Findings suggestive of hepatic metastasis and/or small abscesses. Clinical correlation recommended. Status post right hemicolectomy. Findings suggestive of colitis of the transverse colon and descending colon. Small amount of free fluid is seen in the pelvis. Reading Location: [place] [address] CC: Dr. Lluvia Vann MD; [place] [facility] MECHANIC SENIOR-C Beam ~ Healthcare Translator: Signed [facility]08-14-2025 Telephone encounter Note* Telephone Encounter - Amber Casillas RN - 11/07/2024 10:57 AM EDT Call made to patient's sister (Jeanette) that per Adrienne Bahena CNP patient needs to go to ED d/t abdominal pain. Jeanette will make contact with patient and have her go straight to ED. [facility]08-14-2025 Telephone encounter Note* Telephone Encounter - Kate Castillo RN - 11/07/2024 8:47 AM EDT CYCLE 1/DAY 1 POST TREATMENT CALL Today's date: November 07, 2024 Treatment Regimen: Folfox C1D1 Date: 11/06/24 Called patient to follow-up on symptom management. Spoke with patient SYMPTOM ASSESSMENT Call to patient, she states that she has been nauseated and vomiting since 3am. It was more often than every hour and now it is about every hour. She is unable to hold anything down, she is sipping on water. She denies watery stool but states she keeps having the urge to go. She has a lot of discomfort in her lower abdomen. She states I can't do this and is wanting the pump removed now. She wants to come in now and haveus stop it and take it off. Patient advised to go ahead and come in to our office at this time. Judy Castillo RN Spoke with Dr. Poole, he is ordering 1L fluids over 1 hour, Zofran and DXM. Chemo nurse aware that she is coming in. Schedulers adding her on for an appointment upstairs. Any new referrals needed? No Reinforced CURRENT treatment education based on current and anticipated symptoms. Discussed port/line care and patient verbalizes understanding: Yes Kate Castillo RN [facility] Work Phone: 1(927) 716-904708-14-2025 Miscellaneous Notes* Telephone Encounter - Kate Castillo RN - 11/07/2024 8:47 AM EDT CYCLE 1/DAY 1 POST TREATMENT CALL Today's date: November 07, 2024 Treatment Regimen: Folfox C1D1 Date: 11/06/24 Called patient to follow-up on symptom management. Spoke with patient SYMPTOM ASSESSMENT Call to patient, she states that she has been nauseated and vomiting since 3am. It was more often than every hour and now it is about every hour. She is unable to hold anything down, she is sipping on water. She denies watery stool but states she keeps having the urge to go. She has a lot of discomfort in her lower abdomen. She states I can't do this and is wanting the pump removed now. She wants to come in now and haveus stop it and take it off. Patient advised to go ahead and come in to our office at this time. Judy Castillo RN Spoke with Dr. Poole, he is ordering 1L fluids over 1 hour, Zofran and DXM. Chemo nurse aware that she is coming in. Schedulers adding her on for an appointment upstairs. Any new referrals needed? No Reinforced CURRENT treatment education based on current and anticipated symptoms. Discussed port/line care and patient verbalizes understanding: Yes Kate Castillo RN * Telephone Encounter - Germaine Jennings LPN - 11/07/2024 8:14 AM EDT Patient calls this morning with complaints of stomach cramps, vomiting and diarrhea since 3am. She took Compazine and vomited it back up less than 30 min later. She states she called the number on the pump to find out how to turn it off due to her symptoms andwas told to call the office. She wanted to know if she could come in and get it taken off. Germaine Jennings LPN [facility] Telephone encounter Note * Telephone Encounter - Germaine Jennings LPN - 11/07/2024 8:14 AM EDT Patient calls this morning with complaints of stomach cramps, vomiting and diarrhea since 3am. She took Compazine and vomited it back up less than 30 min later. She states she called the number on the pump to find out how to turn it off due to her symptoms andwas told to call the office. She wanted to know if she could come in and get it taken off. Germaine Jennings LPN [facility]08-14-2025 Telephone encounter Note* Telephone Encounter - Alyson Brown RN - 11/07/2024 8:00 AM EDT Pt of heme/onc Dr Poole calling with c/o nausea/vomiting since receiving chemo pump yesterday.Conf to [facility] chemical reclamation equipment operator for transfer to the office. [facility]08-14-2025 Miscellaneous Notes* Telephone Encounter - Alyson Brown RN - 11/07/2024 8:00 AM EDT Pt of heme/onc Dr Poole calling with c/o nausea/vomiting since receiving chemo pump yesterday.Conf to [facility] chemical reclamation equipment operator for transfer to the office. documented in this encounterSt. [facility]08-13-2025 NoteHNO ID: [id number] Author: JERRY ELLIS RN Service: ? Author Type: Registered Nurse Type: Progress Notes Filed: 11/06/2024 14:00 Note Text: .[facility]08-13-2025 History of Present illness Narrative* Jerry Ellis RN - 11/06/2024 11:46 AM EDT . documented in this encounterSt. [facility]08-12-2025 NoteC[facility] History of Present illness Narrative* Jimmie Poole MD - 11/05/2024 10:41 AM EDT (Elements copied from my note datedJuly 2024 , have been reviewed and updated where appropriate, and all reflect current assessment and medical decision making from today's encounter, November 05, 2024) HISTORY OF PRESENT ILLNESS: Lakesha Koch is a 64 year old female July 2023, had large bowel perforation with obstruction, had a drain in place, had a post obstruction infection which persisted. Home a few weeks now. Slowly getting back on feet. Appetite good but things taste funny, so intake not optimal, weight down. We and family in attendance by phone and in person discussed recent dx of right colon cancer, pT4N0, grade 2, but prior obstruction and lymphatic invasion render higher risk of recurrence. We discussed the role of adjuvant chemotherapy in reducing recurrence risk. As stage II her risks are fairly low, adjuvant chemo will reduce risks by approximately 5%. Adjuvant Xeloda commenced 02-01-24. Here for follow up after CT scan July 11 2024 showing progressive RLQ abdominal masses. These progressed since February 2024 where they were described as inflammatory masses. Here for follow up post biopsy, shows adenocarcinoma. Communicated with Dr Spring. TB discussion favors resection or radiation. 09-25-24 follow up, post debulking. CT at [facility] September 13, 2024 looks ok, report being pursued 10-10-24 follow up, she pushed her appointments back to accommodate a trip, we dicussed the importance of timely adjuvant therapy CLINICAL IMPRESSION: Stage II colon cancer with high risk features. Local and intrabdominal recurrence. R0 resection MMS. RECOMMENDATION/PLAN: plan adjuvant FolFOx given these developments. Written and verbal health teaching given to patient, patient verbalizes understanding and agrees with treatment plan. PAST MEDICAL HISTORY Diagnosis Date Anemia Anorexia nervosa (HCC) Bowel wall thickening Colon cancer (HCC) Daily consumption of alcohol Depression Essential tremor Failure to thrive in adult Feeding difficulties Focal epilepsy (HCC) Gait abnormality Inflammation of colonic mucosa Intestinal obstruction (HCC) Migraine Migraine without aura 05/03/2019 Muscular deconditioning Perforated 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 with localized peritonitis, gangrene and abscess Psoas abscess, right (HCC) Seizures (HCC) Severe protein-calorie malnutrition (HCC) PAST SURGICAL HISTORY Procedure Laterality Date APPENDECTOMY 01/03/2024 COLONOSCOPY DIAGNOSTIC polyp EXPLORATORY OF ABDOMEN 09/19/2023 ROCIO DRAIN TO BULB SUCTION 09/01/2023 for acute 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 with perforation, localized peritonitis, and gangrene. FAMILY HISTORY Problem Relation Age of Onset Lung Cancer Mother Prostate Cancer Father Melanoma Sister No Known Problems Sister No Known Problems Sister No Known Problems Brother No Known Problems Brother No Known Problems Maternal Grandmother No Known Problems Maternal Grandfather Breast Cancer Paternal Grandmother No Known Problems Paternal Grandfather Anesthesia Problems No Family History Colon Cancer No Family History Social History Tobacco Use Smoking status: Former Current packs/day: 0.00 Average packs/day: 1 pack/day for 18.1 years (18.1 ttl pk-yrs) Types: Cigarettes Start date: 1977 Quit date: 1995 Years since quittin.6 Passive exposure: Past Smokeless tobacco: Never Vaping Use Vaping status: Some Days Substance Use Topics Alcohol use: Not Currently Comment: sober, quit 3 years ago Drug use: Not Currently Types: Marijuana Comment: unknown ALLERGIES: ALLERGIES Allergen Reactions Erythromycin Intolerance Mouth soreness and peeling. Denies swelling. Azithromycin Unknown Patient unable to recall allergy CURRENT OUTPATIENT MEDICATIONS: methocarbamol (ROBAXIN) 500 mg tablet Take 1 tablet by mouth two times a day as needed (spasm/pain)for up to 28 days. lidocaine-prilocaine (EMLA) 2.5-2.5 % cream Apply to port 60 minutes before accessing gabapentin (NEURONTIN) 300 mg capsule Take 1 capsule by mouth daily at bedtime for 14 days. OLANZapine (ZYPREXA) 10 mg tablet Take 1 tablet by mouth daily at bedtime. lidocaine (SALONPAS) 4 % patch Apply 2 patches to affected area as directed once daily. Keep patches on for 12 hour and remove patches after 12 hours. ondansetron orally disintegrating (ZOFRAN ODT) 4 mg disintegrating tablet Take 1 tablet by mouth every 8 hours as needed for nausea/vomiting. acetaminophen (TYLENOL EXTRA STRENGTH) 500 mg tablet Take 1-2 tablets by mouth every 6 hours as needed for pain. busPIRone (BUSPAR) 7.5 mg tablet Take 7.5 mg by mouth once daily. alendronate (FOSAMAX) 70 mg tablet Take 70 mg by mouth one time a week. On Saturdays sertraline (ZOLOFT) 50 mg tablet Take 50 mg by mouth once daily. gabapentin (NEURONTIN) 300 mg capsule Take 1 capsule by mouth once daily for 90 days. (Patient not taking: Reported on 11/05/2024) OLANZapine (ZYPREXA) 10 mg tablet Take 1 tablet by mouth daily at bedtime. (Patient not taking: Reported on 11/05/2024) REVIEW OF SYSTEMS: GENERAL: No fever, night sweats, weight loss or malaise. All other reviewed and negative other than HPI. PHYSICAL EXAMINATION: VITAL SIGNS: BP 92/54 Pulse 85 Temp (Src) 97.7 (Temporal) Wt 90 lb 8 oz (41.1kg) SpO2 98% GENERAL APPEARANCE: Well appearing, in no acute distress, alert and oriented x3, well-hydrated, well nourished. I spent a total of 20 minutes on the date of the service which included preparing to see the patient, [id number] patient care, completing clinical documentation, obtaining and/or reviewing separately obtained history, counseling and educating the patient/family/caregiver, ordering medications, arron ts, or procedures, communicating with other HCPs (not separately reported), independently interpreting results (not separately reported), communicating results to the patient/family/caregiver, and care coordination (not separately reported). And review of NCCN guidelines Electronically Signed: Jimmie Poole MD November 05, 2024 documented in this encounterSt. [facility]08-[facility]-2025 Telephone encounter Note * Telephone Encounter - Amber Valverde LISW - 10/25/2024 2:23 PM EDT SOCIAL WORK FOLLOW UP NOTE: [facility] Date of service: October 25, 2024 Lakesha Koch is being seen for a follow up social work visit. Today's visit includes: family TOPICS ADDRESSED: SW received phone call from pt's sister, Brittney, this date. Brittney inquiring about transportation options. She reports there are no immediate needs however reports pt has more frequent appointments than the family might be able to accommodate and wanted to be prepared in case they need assistance. SW discussed with Brittney emailing her the resource listing SW has developed,Brittney in agreement. SW emailed several transportation resources to pt's sister this date. No other needs identified at this time. PLAN: Continue follow up as needed F/U APPOINTMENT: PRN Assigned DOM listed in Care Team tab: Yes ANG Peterson [facility]08-01-2025 Miscellaneous Notes* Telephone Encounter - Amber Valverde LISW - 10/25/2024 2:23 PM EDT SOCIAL WORK FOLLOW UP NOTE: [facility] Date of service: October 25, 2024 Lakesha Koch is being seen for a follow up social work visit. Today's visit includes: family TOPICS ADDRESSED: SW received phone call from pt's sister, Brittney, this date. Brittney inquiring about transportation options. She reports there are no immediate needs however reports pt has more frequent appointments than the family might be able to accommodate and wanted to be prepared in case they need assistance. DOM discussed with Brittney emailing her the resource listing SW has developed,Brittney in agreement. DOM emailed several transportation resources to pt's sister this date. No other needs identified at this time. PLAN: Continue follow up as needed F/U APPOINTMENT: PRN Assigned DOM listed in Care Team tab: Yes ANG Peterson documented in this encounterSt. [facility]08-[facility]-2025 Telephone encounter Note * Telephone Encounter - Rema Beltre RN - 10/25/2024 1:23 PM EDT Refilled script on 10/22 [facility]08-01-2025 Miscellaneous Notes* Telephone Encounter - Rema Beltre RN - 10/25/2024 1:23 PM EDT Refilled script on 10/22 documented in this encounterSt. [facility]07-31-2025 Telephone encounter Note * Telephone Encounter - Rema Beltre RN - 10/24/2024 1:50 PM EDT Patient requested small refill of dilaudid. Pended script for Dr. Spring to sign. [facility]07-31-2025 Miscellaneous Notes* Telephone Encounter - Rema Beltre RN - 10/24/2024 1:50 PM EDT Patient requested small refill of dilaudid. Pended script for Dr. Spring to sign. * Telephone Encounter - Brittany Mariscal - 10/24/2024 12:53 PM EDT Patient called and left a message regarding needing a prescription refill return call to [phone] documented in this encounterSt. Charles Hospital07-31-2025 Telephone encounter Note * Telephone Encounter - Brittany Mariscal - 10/24/2024 12:53 PM EDT Patient called and left a message regarding needing a prescription refill return call to [phone] [facility] Work Phone: 1(420) 652-324307-31-2025 [facility] History of Present illness Narrative* Tessa Spring MD - 10/24/2024 12:04 PM EDT Established Patient Visit REASON FOR VISIT Follow up I have communicated my name and active licensure. The patient's identity and physical location wereverified at the time of this visit. Either the patient or their legal sales and marketing representative has been informed of the risks and benefits of -- and alternatives to -- treatment through a remote evaluation andconsents to proceed with the evaluation remotely. History of Present Illness: Lakesha Koch is a 64 year old year old female who underwent an ex lap, SBR and redo ileocolic anastomosis, resection of R RP mass, repair of iliac vein, and resection of pelvic mass on 08/28/2024 forrecurrent metastatic colon cancer. She continues to have RLQ pain that did not improve with bowel regimen, relative response to muscle relaxants but well controlled with Zyprexa and Gabapentin indicating a neural etiology. She continues PT for her RLE. She had an episode of dehydration yesterday that required ED visit and IVF. Feels much better today. FUNCTIONAL STATUS: Take care of self, that is eating, dressing, bathing, using the toilet (2.75 METs) PAST MEDICAL HISTORY Diagnosis Date Anemia Anorexia nervosa (HCC) Bowel wall thickening Colon cancer (HCC) Daily consumption of alcohol Depression Essential tremor Failure to thrive in adult Feeding difficulties Focal epilepsy (HCC) Gait abnormality Inflammation of colonic mucosa Intestinal obstruction (HCC) Migraine Migraine without aura 05/03/2019 Muscular deconditioning Perforated 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 with localized peritonitis, gangrene and abscess Psoas abscess, right (HCC) Seizures (HCC) Severe protein-calorie malnutrition (HCC) PAST SURGICAL HISTORY Procedure Laterality Date APPENDECTOMY 01/03/2024 COLONOSCOPY DIAGNOSTIC polyp EXPLORATORY OF ABDOMEN 09/19/2023 ROCIO DRAIN TO BULB SUCTION 09/01/2023 for acute 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 with perforation, localized peritonitis, and gangrene. FAMILY HISTORY Problem Relation Age of Onset Lung Cancer Mother Prostate Cancer Father Melanoma Sister No Known Problems Sister No Known Problems Sister No Known Problems Brother No Known Problems Brother No Known Problems Maternal Grandmother No Known Problems Maternal Grandfather Breast Cancer Paternal Grandmother No Known Problems Paternal Grandfather Anesthesia Problems No Family History Colon Cancer No Family History Social History Tobacco Use Smoking status: Former Current packs/day: 0.00 Average packs/day: 1 pack/day for 18.1 years (18.1 ttl pk-yrs) Types: Cigarettes Start date: 1977 Quit date: 1995 Years since quittin.6 Passive exposure: Past Smokeless tobacco: Never Vaping Use Vaping status: Some Days Substance Use Topics Alcohol use: Not Currently Comment: sober, quit 3 years ago Drug use: Not Currently Types: Marijuana Comment: unknown MEDICATIONS Current Outpatient Medications Medication Sig Dispense Refill gabapentin (NEURONTIN) 300 mg capsule Take 1 capsule by mouth once daily for 90 days. 30 capsule 2 OLANZapine (ZYPREXA) 10 mg tablet Take 1 tablet by mouth daily at bedtime. 90 tablet 0 methocarbamol (ROBAXIN) 500 mg tablet Take 1 tablet by mouth two times a day as needed (spasm/pain)for up to 28 days. 56 tablet 0 lidocaine-prilocaine (EMLA) 2.5-2.5 % cream Apply to port 60 minutes before accessing 15 g 3 prochlorperazine (COMPAZINE) 10 mg tablet Take 1 tablet by mouth every 6 hours as needed for nausea/vomiting. 30 tablet 2 gabapentin (NEURONTIN) 300 mg capsule Take 1 capsule by mouth daily at bedtime for 14 days. 14 capsule 0 OLANZapine (ZYPREXA) 10 mg tablet Take 1 tablet by mouth daily at bedtime. 30 tablet 0 naloxone 4 mg/actuation nasal spray (NARCAN) Use 1 spray in one nostril as needed for overdose. Mayrepeat every 2 to 3 min in alternating nostrils until medical assistance is available 1 each 0 ursodiol (ACTIGALL) 300 mg capsule Take 1 capsule by mouth two times a day. 180 capsule 0 lidocaine (SALONPAS) 4 % patch Apply 2 patches to affected area as directed once daily. Keep patches on for 12 hour and remove patches after 12 hours. 60 patch 0 polyethylene glycol 3350 (MIRALAX) 17 gram packet Take 17 g by mouth once daily as needed for constipation. Dissolve dose in 4 - 8 ounces of liquid and take as directed. (Patient not taking: Reportedon 09/16/2024) senna-docusate (SENNA-S) 8.6-50 mg per tablet Take 1 tablet by mouth two times a day as needed for constipation. (Patient not taking: Reported on 09/16/2024) ondansetron orally disintegrating (ZOFRAN ODT) 4 mg disintegrating tablet Take 1 tablet by mouth every 8 hours as needed for nausea/vomiting. 60 tablet 2 acetaminophen (TYLENOL EXTRA STRENGTH) 500 mg tablet Take 1-2 tablets by mouth every 6 hours as needed for pain. busPIRone (BUSPAR) 7.5 mg tablet Take 7.5 mg by mouth once daily. alendronate (FOSAMAX) 70 mg tablet Take 70 mg by mouth one time a week. On Saturdays sertraline (ZOLOFT) 50 mg tablet Take 50 mg by mouth once daily. divalproex ER (DEPAKOTE ER) 250 mg 24 hr tablet Take 2 tablets by mouth two times a day. (Patient taking differently: Take 2 tablets by mouth two times a day.) 360 tablet 1 No current facility-administered medications for this visit. CURRENT ALLERGIES ALLERGIES Allergen Reactions Erythromycin Intolerance Mouth soreness and peeling. Denies swelling. Azithromycin Unknown Patient unable to recall allergy REVIEW OF SYSTEMS PAIN ASSESSMENT: Pain Pain Level: 7 Pain Location: Abdomen-Right Lower Quadrant Description: Aching, Dull, Stabbing/Not Incision, Surgical/Not Incision, Tenderness Duration Amount of Time: 8 Duration Units: Weeks Frequency: Continuous Intervention/Comfort measure: Heat General: Weight relatively stable, today 89 from 92 lbs Neuro: Seizures on Depakote Respiratory: No history of current cough or dyspnea, or pneumonia in the past 6 weeks. No history of respiratory/pulmonary symptoms or problems Cardiovascular: No history of HTN requiring medication, no history of angina, CHF, MS, cardiac surgery or stents. Denies rest pain, gangrene or revascularization/amputation for PVD. No history of cardiovascular symptoms or problems. GI: See HPI : No history of UTI in past 6 weeks. No history of renal failure. Not currently on or requiring dialysis. No history of symptoms or problems. Endocrine: No history of diabetes. Has not taken steroids within the past 30 days. No history of endocrinological symptoms or problems. Hematology: Iron deficiency anemia due to malnutrition and long hospitalization Oncology: No history of CA metastasis, chemo within 30 days, or radiotherapy within 90 days. Has not lost 10% of body wt in 6 months. No history of oncological symptoms or problems. Psych: No history of psychiatric symptoms or problems. Musculoskeletal: Negative for joint pain or swelling, back pain or muscle pain. Skin: Negative for lesions, rash and itching. Anemia: No PHYSICAL EXAMINATION There were no vitals taken for this visit. This consult was conducted via a virtual video platform and all the findings stated below are extrapolated from the video visit. General: alert and appropriate, in no distress, well-hydrated, well nourished, and happy, smiling, interactive Skin: no rash noted Head: normocephalic, no abnormality or lesion noted Eyes: no injection Ears: external ears normal Nose: external nose normal without rhinorrhea Oropharynx: moist mucus membranes Neck: full ROM, no masses or LNs visible and no visible JVD or carotid pulsations Respiratory: breathing non-labored and no cyanosis Chest: equal chest rise with normal respiratory effort Heart: No visible pulsations. Abdomen: soft and non-tender Neurologic: No gross neurological deficits noted. ASSESSMENT 64 year old year old female who underwent an ex lap, SBR and redo ileocolic anastomosis, resection of R RP mass, repair of iliac vein, and resection of pelvic mass on 08/28/2024 for recurrent metastatic colon cancer. She continues to struggle with persistent RLQ pain that is muscular and neural in etiology. She has normal PO intake and bowel habits. RECOMMENDATION From the oncologic standpoint, the patient is established with Dr. Poole. She is had a port and is planned to start FOLFOX soon. I renewed the patient's prescriptions of Zyprexa, Gabapentin, and Robaxin since she is still symptomatic and is leaving town tomorrow. She prefers not to go back on Dilaudid for now. Will continue to follow Medical Decision Making: Problems: High: Illness/injury w/ threat to life/body function Data: Unique source(s) for external note(s) reviewed: 2 Unique test result(s) reviewed: 2 Assessment requiring an independent historian(s) Risk: Moderate: Drug management Medical Decision Making Level: 4 - Moderate Tessa Spring MD [facility] October 24, 2024 * Rema Beltre RN - 10/24/2024 11:30 AM EDT New/Est pt: established patient Reason for apt: f/u 08/[address] Poole 10/10/24: RECOMMENDATION/PLAN: plan adjuvant FolFOx given these developments. Will see if we can move things up on the schedule. [facility] Telephone encounter Note * Telephone Encounter - Rema Beltre RN - 10/24/2024 12:00 PM EDT Questions answered during phone call on 10/24. [facility]07[facility] Miscellaneous Notes* Telephone Encounter - Rema Beltre RN - 10/24/2024 12:00 PM EDT Questions answered during phone call on 10/24. documented in this encounterSt. [facility]07-31-2025 [facility] Discharge summary [facility] Medical Records Department [address] [place] [address] Emergency Department Summary 10/23/24 MR#: [id number] Acct: [id number] Name: LAKESHA KOCH Rep #:[id number] : 1960 64 From: Ankit Marsh MD PCP: Aubrey Lopez MECHANIC SENIOR-C Status:REG ER Location: ED HPI History of Present Illness Chief Complaint: Nausea/Vomiting/Diarrhea Narrative Narrative: 64-year-old female past medical history of recurrent colon carcinoma, supposed to start chemotherapy soon, recently had Mediport inserted last week and had tooth extraction yesterday, presents with nausea and vomiting since this morning. Around 530, 4 hours ago, she started having multiple episodesof vomiting without hematemesis. She vomited [address] to the emergency department. She feels she is dehydrated. She states that previously she was onoral chemotherapy, and is supposed to start infusions of chemotherapy for her recurrent carcinoma. She knows what dehydration feels like, and states that shecannot tolerate even sips of water. [facility] Medical History Seizure disorder Hypotension Marijuana abuse Alcohol dependence ETOH abuse IBS (irritable bowel syndrome) Anxiety Depression Seizure Home Medications ?Medication ?Instructions ?Recorded ?Last Taken ?Type alendronate 70 mg tablet 70 mg PO QWEEK [facility] 0 10/18/23 Unknown History buspirone 7.5 mg tablet 7.5 mg PO DAILY Mood 4 09/04/24 08:50 History sertraline 50 mg tablet 50 mg PO DAILY Mood 10/18/23 09/04/24 08:50 History acetaminophen 500 mg tablet 1,000 mg (2 x 500 mg) PO Q 8 #0 tabs 09/12/24 Unknown Rx gabapentin 100 mg capsule 100 mg PO QHS 30 days #30 ca ps 09/12/24 Unknown Rx hydromorphone 2 mg tablet 2 - 4 mg (1 - 2 x 2 mg) PO Q 4H PRN 09/12/24 Unknown Rx PRN PAIN 6-10 7 days #42 tabs hydroxyzine pamoate 25 mg capsule 50 mg (2 x 25 mg) PO TID PRN PRN 09/12/24 Unknown Rx Itching 30 days #90 caps lidocaine 5 % topical patch 2 patch topical DAILY 30 d ays #60 09/12/24 Unknown Rx ea methocarbamol 750 mg tablet 750 mg PO Q8 30 days #90 t abs 09/12/24 Unknown Rx ondansetron 4 mg disintegrating 4 mg PO Q8H PRN PRN Na usea 30 days 09/12/24 Unknown Rx tablet #90 tabs Allergy/AdvReac Type Severity Reaction Status Date / Time erythromycin base Allergy TONGUE Verified 04/08/24 14:38 PEELS Family History Sister Melanoma Father Prostate CA Surgical History History of placement of ureteral stent History of resection of small bowel History of right salpingo-oophorectomy History of lysis of adhesions History of exploratory laparotomy 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 No fevers or chills, no exacerbating or alleviating factors. She did have bowel movements this morning. EXAM Physical Exam Narrative Exam Narrative: Afebrile. Vital signs noted. Nontoxic-appearing. Cardiovascular examination reveals mild tachycardia. Lungs clear to auscultation bilaterally. Abdomen is soft and nontender without guarding or rebound. Positive bowel sounds. No distention. Neurological examination nonfocal, nonlateralizing. Const Vital Signs: 10/23/24 09:17 Temperature 97.4 F L Temperature Source Temporal Pulse Rate 110 H Respiratory Rate 16 Blood Pressure 130/82 H Blood Pressure Mean 98 Pulse Ox 98 Oxygen Delivery Method Room Air MDM MDM MDM Narrative Medical decision making narrative: The differential diagnosis includes but not limited to gastroenteritis versus gastritis versus bowel obstruction versus pancreatitis. Patient states she is really not having that much abdominal pain.I discussed with her possible CT imaging, but she is declining. She was told that it limits my ability to rule out any obstruction, but she states that the abdominal pain is not her main concern and that she feels more dehydrated. She will be bolused IV fluids. However, we will not use her Mediportbecause she states that she has not been cleared for its use yet. I will check a CBC, CMP, and lipase to help rule out pancreatitis and look for any electrolyte abnormality or dehydration. Patient bolused normal saline 1 L intravenously. I reviewed her laboratory workand she has normal white count of 6.3 with hemoglobin 13.2, hematocrit 40.5, platelet count normal at 293. Electrolyte panel is significant for low carbon dioxide of 16.5 but normal sodium and potassium. BUN 19 with creatinine low at 0.65. LFTs are grossly unremarkable. Lipase normal at 27 so I doubt acute pancreatitis. Upon repeat examination, patient may have been experiencing dry heaving but feels well enough to go home. I discussed with her an additional bolus of IV fluids but through shared decision making, she would like to be discharged and continue her Zofran at home and follow-up with her physicians. Shehas Zofran at home that she can continue. Return instructions reviewed. Disposition is discharged home in stable condition. History & Record Review Discussion w/independent historian: Patient Additional record(s) reviewed:: Prior ED visit (Seen previously in the ED by myself personally.) Lab Data Attestation: I reviewed the patient's lab results. Labs: Laboratory Results - last 24 hr 10/23/24 09:40 WBC 6.3 RBC 4.44 Hgb 13.2 Hct 40.5 MCV 91.2 MCH 29.7 MCHC 32.6 RDW Std Deviation 45.9 H RDW Coeff of Yury 13.6 Plt Count 293 MPV 9.4 Immature Gran % (Auto) 0.300 Neut % (Auto) 74.0 H Lymph % (Auto) 17.9 L Campbell % (Auto) 4.8 Eos % (Auto) 2.2 Baso % (Auto) 0.8 Absolute Neuts (auto) 4.7 Absolute Lymphs (auto) 1.13 Nucleated RBC % 0 Sodium 138 Potassium 3.7 Chloride 108 Carbon Dioxide 16.5 L Anion Gap 14 BUN 19 Creatinine 0.65 L Est GFR (MDRD) Non-Af 98 BUN/Creatinine Ratio 29.3 H Glucose 139 H Calcium 9.4 Total Bilirubin 0.25 AST 23 ALT 8 Alkaline Phosphatase 100 Total Protein 7.7 Albumin 4.1 Globulin 3.6 Albumin/Globulin Ratio 1.2 Lipase 27 Discharge Plan Triage Chief Complaint: Nausea/Vomiting/Diarrhea ED Provider: Ankit Marsh Dx/Rx/DC Orders Clinical Impression: Colon cancer, Nausea and vomiting Instructions: ED Vomiting (Adult) Prescriptions: No Action sertraline 50 mg tablet 50 mg PO DAILY alendronate 70 mg tablet 70 mg PO QWEEK Patient Comments: Take once a week on Saturdays. buspirone 7.5 mg tablet 7.5 mg PO DAILY acetaminophen 500 mg Tablet 1,000 mg PO Q8 Qty: 0 0RF hydromorphone 2 mg Tablet 2 - 4 mg PO Q4H PRN PRN (Reason: PAIN 6-10) 7 Days Qty: 42 0RF methocarbamol 750 mg Tablet 750 mg PO Q8 30 Days Qty: 90 0RF lidocaine 5 % Adhesive Patch,Medicated 2 patch topical DAILY 30 Days Qty: 60 0RF gabapentin 100 mg Capsule 100 mg PO QHS 30 Days Qty: 30 0RF ondansetron 4 mg Tablet,Disintegrating 4 mg PO Q8H PRN PRN (Reason: Nausea) 30 Days Qty: 90 0RF hydroxyzine pamoate 25 mg Capsule 50 mg PO TID PRN PRN (Reason: Itching) 30 Days Qty: 90 0RF Primary Care Provider: Aubrey Lopez Referrals: Aubrey Lopez, MECHANIC SENIOR-C [Primary Care Provider] - As soon as possible Activity Restrictions/Additional Instructions: Continue your Zofran at home. Clear liquid diet and advance as tolerated. Drink plenty of oral fluids. Return with new or worsening symptoms. Print Language: Tajik Disposition Disposition: Home, Self Care What to do if you have Problems For any increased pain, shortness of breath, bleeding, nausea or vomiting, chestpain, or any unexpected problems, contact your Primary Care Provider. Call [facility] ([phone]) or report tothe closest Emergency Room. Call 911 if necessary. 10/23/24 1135 Cosigner Signature (if applicable): CC: Aubrey CURIEL MECHANIC SENIORMathewC Jessica ~ Signed [facility]07-22-2025 Telephone encounter Note* Telephone Encounter - Rema Beltre RN - 10/15/2024 1:19 PM EDT Returned call and spoke to patient. Reports having RLQ pain -feel it on the inside; dull and achy pain -5/10 when it's at the worst -is worse after up and moving for awhile -has pain when pushing down on abdomen Patient is taking Tylenol and Motrin that is helping slightly. Having normal BM's and no reports ofnausea. Advised patient that I can reach out to the category consultant provider since Dr. Spring is currently out ofthe office, she stated okay to wait until he returns. Virtual visit scheduled with Dr. Spring on 10/24. Patient understanding and thankful for call. [facility] Miscellaneous Notes* Telephone Encounter - Rema Beltre RN - 10/15/2024 1:19 PM EDT Returned call and spoke to patient. Reports having RLQ pain -feel it on the inside; dull and achy pain -5/10 when it's at the worst -is worse after up and moving for awhile -has pain when pushing down on abdomen Patient is taking Tylenol and Motrin that is helping slightly. Having normal BM's and no reports ofnausea. Advised patient that I can reach out to the category consultant provider since Dr. Spring is currently out ofthe office, she stated okay to wait until he returns. Virtual visit scheduled with Dr. Spring on 10/24. Patient understanding and thankful for call. * Telephone Encounter - Brittany Mariscal - 10/15/2024 11:06 AM EDT Patient called and left a message regarding post operative 6/4 Exploratory laparotomy Extensive lysis of adhesions >1 hour Resection of right retroperitoneal mass 7 cm Right salpingo-oophorectomy Resection of right femoral nerve Exposure of right iliac artery Primary repair of right iliac vein (involved by tumor) Small bowel resection (including previous anastomosis) and end-to-side hand-sewn single layer ileocolic anastomosis Bilateral ureteral stents by urology (panel 2) and concerns of pain return call to [phone] documented in this encounterSt. [facility]07-[facility]-2025 Telephone encounter Note * Telephone Encounter - Brittany Mariscal - 10/15/2024 11:06 AM EDT Patient called and left a message regarding post operative 6/4 Exploratory laparotomy Extensive lysis of adhesions >1 hour Resection of right retroperitoneal mass 7 cm Right salpingo-oophorectomy Resection of right femoral nerve Exposure of right iliac artery Primary repair of right iliac vein (involved by tumor) Small bowel resection (including previous anastomosis) and end-to-side hand-sewn single layer ileocolic anastomosis Bilateral ureteral stents by urology (panel 2) and concerns of pain return call to [phone] [facility] Work Phone: 1(225) 333-322507-18-2025 Telephone encounter Note* Telephone Encounter - Fang Myers - 10/11/2024 2:44 PM EDT Rescheduled and my chart message sent to patient [facility] Work Phone: 1(839) 801-437407-18-2025 Miscellaneous Notes* Telephone Encounter - Fang Myers - 10/11/2024 2:44 PM EDT Rescheduled and my chart message sent to patient * Telephone Encounter - Kate Castillo RN - 10/11/2024 10:58 AM EDT PSS: please reschedule patient's start date now that her port has been moved up to 10/21/24. SEE phone encounter 10/02/24 and 09/25/24. Need OV 11/05 and hopefully start 11/06/24. Please send Mychart with new start time. Judy Castillo, RN documented in this encounterSt. [facility]07-18-2025 Telephone encounter Note * Telephone Encounter - Kate Castillo RN - 10/11/2024 10:58 AM EDT PSS: please reschedule patient's start date now that her port has been moved up to 10/21/24. SEE phone encounter 10/02/24 and 09/25/24. Need OV 11/05 and hopefully start 11/06/24. Please send Mychart with new start time. Judy Castillo, RN [facility] Work Phone: 1([phone]) 822-530907-18-2025 Miscellaneous Notes* Allied Health - Priscilla Molina, Art Therapist - 10/11/2024 9:45 AM EDT Therapist received call from this patient expressing interest in art therapy. (She indicated she had seen information re: the program in her My Journey binder.) She was given an overview of the program and expressed interest in participating while in infusion. She reports she has not scheduled any treatment appointments yet, though. Therapist agreed to find her treatment once it begins. documented in this encounterSt. [facility]07-18-2025 Progress note* Allied Health - Priscilla Molina, Art Therapist - 10/11/2024 9:45 AM EDT Therapist received call from this patient expressing interest in art therapy. (She indicated she had seen information re: the program in her My Journey binder.) She was given an overview of the program and expressed interest in participating while in infusion. She reports she has not scheduled any treatment appointments yet, though. Therapist agreed to find her treatment once it begins. [facility]07-17-2025 NoteC[facility]07-[facility] History of Present illness Narrative* Jimmie Poole MD - 10/10/2024 2:09 PM EDT (Elements copied from my note dated September 25, 2024, have been reviewed and updated where appropriate,and all reflect current assessment and medical decision making from today's encounter, October 10, 2024) HISTORY OF PRESENT ILLNESS: Lakesha Koch is a 64 year old female July 2023, had large bowel perforation with obstruction, had a drain in place, had a post obstruction infection which persisted. Home a few weeks now. Slowly getting back on feet. Appetite good but things taste funny, so intake not optimal, weight down. We and family in attendance by phone and in person discussed recent dx of right colon cancer, pT4N0, grade 2, but prior obstruction and lymphatic invasion render higher risk of recurrence. We discussed the role of adjuvant chemotherapy in reducing recurrence risk. As stage II her risks are fairly low, adjuvant chemo will reduce risks by approximately 5%. Adjuvant Xeloda commenced 02-01-24. Here for follow up after CT scan July 11 2024 showing progressive RLQ abdominal masses. These progressed since February 2024 where they were described as inflammatory masses. Here for follow up post biopsy, shows adenocarcinoma. Communicated with Dr Spring. TB discussion favors resection or radiation. 09-25-24 follow up, post debulking. CT at [place] September 13, 2024 looks ok, report being pursued 10-10-24 follow up, she pushed her appointment sback to accommodate a trip, we dicussed the importance of timely adjuvant therapy CLINICAL IMPRESSION: Stage II colon cancer with high risk features. Local and intrabdominal recurrence. [facility]. RECOMMENDATION/PLAN: plan adjuvant FolFOx given these developments. Will see if we can move things up on the schedule. Written and verbal health teaching given to patient, patient verbalizes understanding and agrees with treatment plan. PAST MEDICAL HISTORY Diagnosis Date Anemia Anorexia nervosa (HCC) Bowel wall thickening Daily consumption of alcohol Depression Essential tremor Failure to thrive in adult Feeding difficulties Focal epilepsy (HCC) Gait abnormality Inflammation of colonic mucosa Intestinal obstruction (HCC) Migraine Migraine without aura 05/03/2019 Muscular deconditioning Perforated 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 with localized peritonitis, gangrene and abscess Psoas abscess, right (HCC) Seizures (HCC) Severe protein-calorie malnutrition (HCC) PAST SURGICAL HISTORY Procedure Laterality Date APPENDECTOMY 01/03/2024 COLONOSCOPY DIAGNOSTIC polyp EXPLORATORY OF ABDOMEN 09/19/2023 ROCIO DRAIN TO BULB SUCTION 09/01/2023 for acute 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 with perforation, localized peritonitis, and gangrene. FAMILY HISTORY Problem Relation Age of Onset Lung Cancer Mother Prostate Cancer Father Melanoma Sister No Known Problems Sister No Known Problems Sister No Known Problems Brother No Known Problems Brother No Known Problems Maternal Grandmother No Known Problems Maternal Grandfather Breast Cancer Paternal Grandmother No Known Problems Paternal Grandfather Anesthesia Problems No Family History Colon Cancer No Family History Social History Tobacco Use Smoking status: Former Current packs/day: 0.00 Average packs/day: 1 pack/day for 18.1 years (18.1 ttl pk-yrs) Types: Cigarettes Start date: 1977 Quit date: 1995 Years since quittin.5 Passive exposure: Past Smokeless tobacco: Never Vaping Use Vaping status: Some Days Substance Use Topics Alcohol use: Not Currently Comment: sober, quit 3 years ago Drug use: Not Currently Types: Marijuana Comment: unknown ALLERGIES: ALLERGIES Allergen Reactions Erythromycin Intolerance Mouth soreness and peeling. Denies swelling. Azithromycin Unknown Patient unable to recall allergy CURRENT OUTPATIENT MEDICATIONS: lidocaine-prilocaine (EMLA) 2.5-2.5 % cream Apply to port 60 minutes before accessing prochlorperazine (COMPAZINE) 10 mg tablet Take 1 tablet by mouth every 6 hours as needed for nausea/vomiting. gabapentin (NEURONTIN) 300 mg capsule Take 1 capsule by mouth daily at bedtime for 14 days. OLANZapine (ZYPREXA) 10 mg tablet Take 1 tablet by mouth daily at bedtime. lidocaine (SALONPAS) 4 % patch Apply 2 patches to affected area as directed once daily. Keep patches on for 12 hour and remove patches after 12 hours. ondansetron orally disintegrating (ZOFRAN ODT) 4 mg disintegrating tablet Take 1 tablet by mouth every 8 hours as needed for nausea/vomiting. acetaminophen (TYLENOL EXTRA STRENGTH) 500 mg tablet Take 1-2 tablets by mouth every 6 hours as needed for pain. busPIRone (BUSPAR) 7.5 mg tablet Take 7.5 mg by mouth once daily. alendronate (FOSAMAX) 70 mg tablet Take 70 mg by mouth one time a week. On Saturdays sertraline (ZOLOFT) 50 mg tablet Take 50 mg by mouth once daily. naloxone 4 mg/actuation nasal spray (NARCAN) Use 1 spray in one nostril as needed for overdose. Mayrepeat every 2 to 3 min in alternating nostrils until medical assistance is available ursodiol (ACTIGALL) 300 mg capsule Take 1 capsule by mouth two times a day. polyethylene glycol 3350 (MIRALAX) 17 gram packet Take 17 g by mouth once daily as needed for constipation. Dissolve dose in 4 - 8 ounces of liquid and take as directed. (Patient not taking: Reportedon 09/16/2024) senna-docusate (SENNA-S) 8.6-50 mg per tablet Take 1 tablet by mouth two times a day as needed for constipation. (Patient not taking: Reported on 09/16/2024) divalproex ER (DEPAKOTE ER) 250 mg 24 hr tablet Take 2 tablets by mouth two times a day. (Patient taking differently: Take 2 tablets by mouth two times a day.) REVIEW OF SYSTEMS: GENERAL: No fever, night sweats, weight loss or malaise. All other reviewed and negative other than HPI. PHYSICAL EXAMINATION: VITAL SIGNS: BP 91/53 Pulse 79 Temp 98.1 Wt 89 lb 8 oz (40.6kg) SpO2 98% GENERAL APPEARANCE: Well appearing, in no acute distress, alert and oriented x3, well-hydrated, well nourished. I spent a total of 30 minutes on the date of the service which included preparing to see the patient, [id number] patient care, completing clinical documentation, obtaining and/or reviewing separately obtained history, counseling and educating the patient/family/caregiver, ordering medications, arron ts, or procedures, communicating with other HCPs (not separately reported), independently interpreting results (not separately reported), communicating results to the patient/family/caregiver, and care coordination (not separately reported). And review of NCCN guidelines Electronically Signed: Jimmie Poole MD October 10, 2024 documented in this encounterSt. [facility] Hospital07-10-2025 Telephone encounter Note * Telephone Encounter - Christina Leach - 10/03/2024 10:47 AM EDT Rescheduled all appointments as requested Christina Leach [facility]07-10-2025 Miscellaneous Notes* Telephone Encounter - Christina Leach - 10/03/2024 10:47 AM EDT Rescheduled all appointments as requested Christina Leach * Telephone Encounter - Kate Castillo RN - 10/02/2024 3:39 PM EDT Patient will be on vacation from 10/25 - 11/04. Please move C2 from 10/28/24 to OV on 11/05 w/ treatment on 11/06/24. She also needs lab scheduled for 10/24/24. Judy Castillo RN documented in this encounterSt. Charles Hospital07-09-2025 Telephone encounter Note * Telephone Encounter - Kate Castillo RN - 10/02/2024 3:39 PM EDT Patient will be on vacation from 10/25 - 11/04. Please move C2 from 10/28/24 to OV on 11/05 w/ treatment on 11/06/24. She also needs lab scheduled for 10/24/24. Judy Castillo RN [facility] Work Phone: 1(280) 515-855607-09-2025 [facility]07-[facility]-20[facility] History of Present illness Narrative* Kate Castillo RN - 10/02/2024 3:33 PM EDT Patient teaching was completed over the phone. Kate Castillo RN Pouncing Lathe Operator Pre Chemo Patient identified by name and date of . YES Confirmed date and time for chemotherapy ? YES Other appointments (labs, imaging) discussed? YES Discussed where to park ([employer]), charge for parking YES Discussed where to report (building/floor) YES Any pre-medications ordered? NO Described the infusion room and what to expect. (What to wear, what to bring [iPad, books] amount of time treatment can take, meals and CC options for food) YES Note: na Discussed whether the patient can eat prior to labs and treatment. YES Who is driving you to and from treatment? Friend Discussed why it is important to bring someone with you. Yes, first treatment Resources discussed (music therapy, Art therapy, pet therapy, etc.) YES Education on chemotherapy (drug, side effects) discussed and that the patient will be receiving a C1D1 call within 7 days of treatment. YES Other topics discussed, interventions needed: Patient will be on vacation from 10/25 - 11/03, will need to adjust C2 start date. Dr. Poole aware and would like labs 10/24/24 prior to leaving. Kate Castillo RN ONCOLOGY PATIENT EDUCATION NOTE TOPIC: Chemotherapy, Medications: Folfox patient called today for education for treatment of Colon / Rectal Cancer Anticipated/Scheduled start date: 10/15/24 READINESS TO LEARN: COGNITIVE ABILITY: Alert and oriented MOTIVATION TO LEARN: Interested FAMILY SUPPORT: Unable to assess - Family not present INSTRUCTION PROVIDED TO: Patient INSTRUCTION PROVIDED BY: Nurse Coordinator PATIENT LEARNS BEST BY: Multiple Methods FACTORS AFFECTING LEARNING: None PHYSICAL LIMITATIONS AFFECTING LEARNING: None LEARNING RESPONSE METHOD OF INSTRUCTION: Individual instruction Written instruction/Handouts Verbal instruction PATIENT/FAMILY RESPONSE: Verbalizes understanding of: CHEMOTHERAPY-Regimen, toxicity and side effects FOLLOW UP PLAN: Recommend - Recommend continued instruction and follow up as directed Contact information given. SUPPLEMENTAL MATERIAL: Written material was provided at this visit with the following information: - Chemotherapy education was provided by a pharmacist NO - Side effect management information was provided/discussed including but not limited to: abdominaldiscomfort, anemia, appetite changes, arthralgia, bowel habit changes, cold sensitivity, electrolyte disturbances, fatigue, infection, mouth hygiene, mucositis, myalgia, nausea/vomitting, neutropenia, peripheral neuropathy, taste changes, thrombocytopenia YES - Provided important phone numbers and contacts during and after hours. YES - Provided information on symptoms that require immediate assistance. YES - Provided Chemotherapy when to call handouts YES - Preventing infection. YES - Treatment schedule and confirmation of appointment times. YES - Available support groups. YES - The importance of contraception during the course of chemotherapy NA - Neutropenic fever protocol discussed with patient, which included the importance of reporting anyfever of 100.4F (38.0C) or greater to the healthcare team as noted on the provided wallet card and/or magnet. YES Time Spent: 45 minutes REFERRAL (RECOMMENDATION): Social Work, to reach out to patient at later time. Kate Castillo RN [facility] Telephone encounter Note * Telephone Encounter - Fang Myers - 09/26/2024 8:37 AM EDT 3 CYCLES ENTERED START EMAIL [facility]ENT [facility] Work Phone: [phone]) 104-532707-03-2025 Miscellaneous Notes* Telephone Encounter - Fang Myers - 09/26/2024 8:37 AM EDT 3 CYCLES ENTERED START EMAIL SENT * Telephone Encounter - Christina Leach - 09/25/2024 3:11 PM EDT Chemo Education -SCHEDULED 10/02 Port placement-SCHEDULED 10/10 Start Folfox after port placement CBC/CMP, straight back to start CBC/CMP/Mg/OV with C2 CEA monthly documented [facility] Telephone encounter Note * Telephone Encounter - Ellyn Zhang RN - 09/25/2024 3:38 PM EDT Met with patient and introduced myself. Patient was given a My Journey binder with chemocare information, office contact information, thermometer, and additional chemotherapy resource booklets. Patient aware this nurse will review on scheduled appointment date. Ellyn Zhang RN [facility]07-02-2025 Miscellaneous Notes* Telephone Encounter - Ellyn Zhang RN - 09/25/2024 3:38 PM EDT Met with patient and introduced myself. Patient was given a My Journey binder with chemocare information, office contact information, thermometer, and additional chemotherapy resource booklets. Patient aware this nurse will review on scheduled appointment date. Ellyn Zhang RN documented in this encounter[facility] Telephone encounter Note * Telephone Encounter - Christina Leach - 09/25/2024 3:11 PM EDT Chemo Education -SCHEDULED 10/02 Port placement-SCHEDULED 10/10 Start Folfox after port placement CBC/CMP, straight back to start CBC/CMP/Mg/OV with C2 CEA monthly [facility] History of Present illness Narrative* Jimmie Poole MD - 09/25/2024 2:39 PM EDT (Elements copied from my note dated ,July 31, 2024 have been reviewed and updated where appropriate, and all reflect current assessment and medical decision making from today's encounter, September 25, 2024) HISTORY OF PRESENT ILLNESS: Lakesha Koch is a 64 year old female July 2023, had large bowel perforation with obstruction, had a drain in place, had a post obstruction infection which persisted. Home a few weeks now. Slowly getting back on feet. Appetite good but things taste funny, so intake not optimal, weight down. We and family in attendance by phone and in person discussed recent dx of right colon cancer, pT4N0, grade 2, but prior obstruction and lymphatic invasion render higher risk of recurrence. We discussed the role of adjuvant chemotherapy in reducing recurrence risk. As stage II her risks are fairly low, adjuvant chemo will reduce risks by approximately 5%. Adjuvant Xeloda commenced 02-01-24. Here for follow up after CT scan July 11 2024 showing progressive RLQ abdominal masses. These progressed since February 2024 where they were described as inflammatory masses. Here for follow up post biopsy, shows adenocarcinoma. Communicated with Dr Spring. TB discussion favors resection or radiation. 09-25-24 follow up, post debulking. CT at [place] September 13, 2024 looks ok, report being pursued CLINICAL IMPRESSION: Stage II colon cancer with high risk features. Local and intrabdominal recurrence. RECOMMENDATION/PLAN: plan adjuvant FolFOx given these developments. Possibly add in avastin down the line Written and verbal health teaching given to patient, patient verbalizes understanding and agrees with treatment plan. PAST MEDICAL HISTORY Diagnosis Date Anemia Anorexia nervosa (HCC) Bowel wall thickening Daily consumption of alcohol Depression Essential tremor Failure to thrive in adult Feeding difficulties Focal epilepsy (HCC) Gait abnormality Inflammation of colonic mucosa Intestinal obstruction (HCC) Migraine Migraine without aura 05/03/2019 Muscular deconditioning Perforated 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 with localized peritonitis, gangrene and abscess Psoas abscess, right (HCC) Seizures (HCC) Severe protein-calorie malnutrition (HCC) PAST SURGICAL HISTORY Procedure Laterality Date APPENDECTOMY 01/03/2024 COLONOSCOPY DIAGNOSTIC polyp EXPLORATORY OF ABDOMEN 09/19/2023 ROCIO DRAIN TO BULB SUCTION 09/01/2023 for acute 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 with perforation, localized peritonitis, and gangrene. FAMILY HISTORY Problem Relation Age of Onset Lung Cancer Mother Prostate Cancer Father Melanoma Sister No Known Problems Sister No Known Problems Sister No Known Problems Brother No Known Problems Brother No Known Problems Maternal Grandmother No Known Problems Maternal Grandfather Breast Cancer Paternal Grandmother No Known Problems Paternal Grandfather Anesthesia Problems No Family History Colon Cancer No Family History Social History Tobacco Use Smoking status: Former Current packs/day: 0.00 Average packs/day: 1 pack/day for 18.1 years (18.1 ttl pk-yrs) Types: Cigarettes Start date: 1977 Quit date: 1995 Years since quittin.5 Passive exposure: Past Smokeless tobacco: Never Vaping Use Vaping status: Some Days Substance Use Topics Alcohol use: Not Currently Comment: sober, quit 3 years ago Drug use: Not Currently Types: Marijuana Comment: unknown ALLERGIES: ALLERGIES Allergen Reactions Erythromycin Intolerance Mouth soreness and peeling. Denies swelling. Azithromycin Unknown Patient unable to recall allergy CURRENT OUTPATIENT MEDICATIONS: HYDROmorphone (DILAUDID) 2 mg tablet Take 1 tablet by mouth every 4 hours as needed for pain (take 1/2-1 tab every 4 hours as needed for moderate to severe pain) for up to 14 days. gabapentin (NEURONTIN) 300 mg capsule Take 1 capsule by mouth daily at bedtime for 14 days. OLANZapine (ZYPREXA) 10 mg tablet Take 1 tablet by mouth daily at bedtime. naloxone 4 mg/actuation nasal spray (NARCAN) Use 1 spray in one nostril as needed for overdose. Mayrepeat every 2 to 3 min in alternating nostrils until medical assistance is available methocarbamol (ROBAXIN) 500 mg tablet Take 1 tablet by mouth two times a day as needed (spasm/pain)for up to 14 days. methocarbamol (ROBAXIN) 750 mg tablet Take 1 tablet by mouth three times a day. lidocaine (SALONPAS) 4 % patch Apply 2 patches to affected area as directed once daily. Keep patches on for 12 hour and remove patches after 12 hours. ondansetron orally disintegrating (ZOFRAN ODT) 4 mg disintegrating tablet Take 1 tablet by mouth every 8 hours as needed for nausea/vomiting. acetaminophen (TYLENOL EXTRA STRENGTH) 500 mg tablet Take 1-2 tablets by mouth every 6 hours as needed for pain. busPIRone (BUSPAR) 7.5 mg tablet Take 7.5 mg by mouth once daily. alendronate (FOSAMAX) 70 mg tablet Take 70 mg by mouth one time a week. On Saturdays sertraline (ZOLOFT) 50 mg tablet Take 50 mg by mouth once daily. ursodiol (ACTIGALL) 300 mg capsule Take 1 capsule by mouth two times a day. enoxaparin (LOVENOX) 30 mg/0.3 mL injection Inject 0.3 mL subcutaneously every 24 hours for 28 days. (Patient not taking: Reported on 09/16/2024) polyethylene glycol 3350 (MIRALAX) 17 gram packet Take 17 g by mouth once daily as needed for constipation. Dissolve dose in 4 - 8 ounces of liquid and take as directed. (Patient not taking: Reportedon 09/16/2024) senna-docusate (SENNA-S) 8.6-50 mg per tablet Take 1 tablet by mouth two times a day as needed for constipation. (Patient not taking: Reported on 09/16/2024) capecitabine (XELODA) 500 mg tablet Take 2 tablets (1000 mg) by mouth in the morning and 2 tablets (1000 mg) in the evening for 14 days on and 7 days off. Take with food (Patient not taking: Reportedon 09/16/2024) divalproex ER (DEPAKOTE ER) 250 mg 24 hr tablet Take 2 tablets by mouth two times a day. (Patient taking differently: Take 2 tablets by mouth two times a day.) REVIEW OF SYSTEMS: GENERAL: No fever, night sweats, weight loss or malaise. All other reviewed and negative other than HPI. PHYSICAL EXAMINATION: VITAL SIGNS: BP 94/52 Pulse 79 Temp (Src) 97.5 (Temporal) Wt 88 lb (39.9kg) SpO2 98% GENERAL APPEARANCE: Well appearing, in no acute distress, alert and oriented x3, well-hydrated, well nourished. I spent a total of 45 minutes on the date of the service which included preparing to see the patient, [id number] patient care, completing clinical documentation, obtaining and/or reviewing separately obtained history, counseling and educating the patient/family/caregiver, ordering medications, arron ts, or procedures, communicating with other HCPs (not separately reported), independently interpreting results (not separately reported), communicating results to the patient/family/caregiver, and care coordination (not separately reported). And review of NCCN guidelines Electronically Signed: Jimmie Poole MD September 25, 2024 documented in this encounterSt[facility]06-[facility] Instructions* Patient Instructions* Edwardo Valencia APRN.BALL THREAD MACHINE TENDER - 09/20/2024 12:59 PM EDT Lakesha, It wa a pleasure meeting with you today. We discussed your pain management: - Continue taking Dilaudid (2 mg) every 4-6 hours as needed for pain. The goal is to keep your painlevel at a tolerable range of 3-4 out of 10. Avoid letting your pain escalate to an 8 or higher, asthis could lead to hospitalization. A 14-day supply has been sent to your pharmacy. - Take Extra Strength Tylenol (500 mg) as scheduled: 2 tablets with breakfast, 2 with lunch, and 2 with dinner (maximum of 3,000 mg daily). This will help manage breakthrough pain and reduce relianceon Dilaudid. - If you find yourself needing Dilaudid more frequently (e.g., every 2 hours), call our office before taking additional doses. - Gabapentin has been increased to 300 mg at bedtime to help with nerve pain in your leg. A 2-week supply has been sent to your pharmacy. We will reassess its effectiveness at your next visit. - Narcan will be prescribed as a precautionary measure, though your current morphine milliequivalent is low and does not indicate a high risk. We discussed your appetite and weight: - Your current weight is 85 pounds. The goal is to increase your calorie intake to help regain weight. Continue drinking 2-3 Boost high-calorie shakes daily and eating calorie-dense foods, such as ice cream and barbecue pork. - Zinc supplements may help improve the taste of food. You can purchase this over the counter at your pharmacy. - A prescription for Zyprexa (olanzapine) will be sent to your pharmacy. This medication can help increase your appetite, reduce nausea, and improve mood. We discussed your skin and mobility: - Monitor your skin, especially on bony areas like your back and bottom, for any signs of breakdown. Use a mirror or ask a family member to check for you. - Continue using your walker, cane, and knee brace as needed for mobility. Avoid stairs at night toreduce the risk of falls. We discussed your bowel movements: - Loose stools are acceptable as long as they are not watery diarrhea occurring 5-6 times a day. Noadditional medications are needed at this time. - Keep stool softeners on hand in case of constipation, which can occur with pain medications. We discussed your sleep: - Pain may be contributing to poor sleep. Consider taking Dilaudid at bedtime if your pain level is5 or higher to improve sleep quality. - Continue sleeping on the pull-out couch near the bathroom to avoid navigating stairs at night. We discussed your mental health and support system: - You reported a history of depression and some anxiety, though not severe or panicky. Zyprexa may also help with mood improvement. - You have a strong support system, including family and friends, which is beneficial for your overall well-being. We discussed your upcoming appointments: - Oncology appointment with Dr. Poole on October 26 in [place]. - Follow-up with your surgeon, Dr. Moe, on October 24. - My community health agent will contact you to arrange an in-person visit, with me in approximately 4 weeks. Additional instructions: - Call our office 2-3 days before running out of any medications, especially pain medications, to request refills. You can also use [employer] for refill requests. - If you experience any new or worsening symptoms, such as uncontrolled pain, frequent diarrhea, orskin breakdown, please contact our office immediately. Our office number is [phone]. A registered nurse is available to answer your questions, and I will follow up as needed. Thank you for your time today, and I look forward to seeing you in person at our next visit. Edwardo Valencia CNP documented in this encounterSt[facility]06-[facility] History of Present illness Narrative* Edwardo Valencia APRN.BALL THREAD MACHINE TENDER - 09/20/2024 7:00 AM EDT Images from the original note were not included. PALLIATIVE MEDICINE AT HOME INITIAL CONSULT SERVICE DATE: 09/20/2024 Referring Physician: Christie Sánchez [id number] [facility] [id number] Primary Physician: Christie Sánchez NP IDENTIFICATION AND INTRODUCTION: Lakesha Koch is a 64 year old female This visit took place Virtually; I have communicated my name and active licensure. The patient's identity and physical location were verified at the time of this visit. The patient or their legal sales and marketing representative has been informed of the risks and benefits of -- and alternatives to -- treatment through a remote evaluation and consents to proceed with the evaluation remotely. The patient is being seen alone Recording using ambient [employer] software for draft documentation of the visit was discussed with the patient/authorized sales and marketing representative; all questions welcomed and answered. Patient/authorized sales and marketing representative agreed to proceed REASON FOR CONSULT: Introduction to services, symptom management, goals of care, support Pertinent medical history: Lakesha Koch is a 64-year-old female with a primary medical history of epilepsy, failure to thrive, low BMI, cecal adenocarcinoma (s/p laparoscopic ileocecectomy 01/03/2024)patient presented to ED on 08/19 with abdominal pain and vomiting. She was scheduled for exploratorylap 08/28 for concern for recurrent malignancy. She was taking home oxycodone without relief for RLQ pain. CT abdomen/pelvis with increasing size of metastatic implants in the RLQ and pelvis. C/B localrecurrence (s/p adjuvant capecitabine), s/p exploratory laparotomy, extensive adhesiolysis, RP massresection with en bloc resection of right fallopian tube, right oophorectomy, small bowel resectionwith revision of iliac colic anastomosis, ureteral stent placement and femoral nerve ligation on 08/28/2024. During hospital stay patient had increased abdominal pain, vomiting, dark or no urine, fever, unable to take in liquids or solids for greater than 24 hours, SOB, chest pain, racing heart, difficulty urinating, bloody, dark, or tarry stool from rectum. Patient is currently on a GI soft diet low in fiber easy to digest. She is followed by nutrition. Lakesha was sent to rehab center to recoverand reported intermittent abdominal pain described as really tight feeling and got. Pain was described as diffuse, involving entire abdomen and not localized to the incision site. Subjective Lakesha Koch is a 64-year-old female with a history of alcohol use disorder, presenting with painmanagement concerns. Lakesha reports experiencing pain in her leg and abdomen. The leg pain is currently rated at 5-6/10 and tends to worsen towards the end of the day. The abdominal pain is most uncomfortable at night, which her surgeon indicated is not unusual due to the extensive muscle cutting during surgery. She iscurrently taking Dilaudid for pain management but is trying to minimize its use due to concerns about addiction. She has taken 16 doses over 4 days and has not taken any in the last 2-3 days. She also uses gabapentin 100 mg at bedtime for nerve pain but does not feel it is effective. She ran out ofextra strength Tylenol and has not been taking it recently. Lakesha has no control over her knee due to femoral nerve issues, which affects her ability to drive. She uses a walker, cane, and knee brace at home. She denies any falls in the last month. She reports loose stools but denies constipation. She has stool softeners on hand. She denies shortness of breath and fatigue. She reports poor sleep quality, attributing it to pain and sleeping on a pull-out couch instead of her own bed. She experiences some anxiety but denies panic attacks. She has a history of depression. Lakesha has been alcohol-free for 4 years. She has a supportive family, including 3 sisters, 2 brothers, and her father. Her sister Bianka and her father came out for her surgery, and Bianka stayed a few days longer. Most of her family lives in [place], but they maintain close contact. She has a loco who helps with transportation to appointments. Lakesha is trying to gain weight and consumes high-calorie foods, including ice cream and Boost high-calorie drinks. She reports that many foods do not taste good to her since her last surgery in December. She enjoys [place] food and barbecue pork. She denies any immediate family history of alcohol, illegal drug, or prescription abuse. She has a personal history of alcohol and illegal drug use in the but denies any issues with prescription medications. She has no history of mental health diagnoses such as ADD, OCD, schizophrenia, or bipolar disorder. SOCIAL HISTORY: Social History Tobacco Use Smoking status: Former Current packs/day: 0.00 Average packs/day: 1 pack/day for 18.1 years (18.1 ttl pk-yrs) Types: Cigarettes Start date: 1977 Quit date: 1995 Years since quittin.5 Passive exposure: Past Smokeless tobacco: Never Vaping Use Vaping status: Some Days Substance Use Topics Alcohol use: Not Currently Comment: sober, quit 3 years ago Drug use: Not Currently Types: Marijuana Comment: unknown PAST MEDICAL HISTORY: PAST MEDICAL HISTORY Diagnosis Date Anemia Anorexia nervosa (HCC) Bowel wall thickening Daily consumption of alcohol Depression Essential tremor Failure to thrive in adult Feeding difficulties Focal epilepsy (HCC) Gait abnormality Inflammation of colonic mucosa Intestinal obstruction (HCC) Migraine Migraine without aura 05/03/2019 Muscular deconditioning Perforated 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 with localized peritonitis, gangrene and abscess Psoas abscess, right (HCC) Seizures (HCC) Severe protein-calorie malnutrition (HCC) PAST SURGICAL HISTORY: PAST SURGICAL HISTORY Procedure Laterality Date APPENDECTOMY 01/03/2024 COLONOSCOPY DIAGNOSTIC polyp EXPLORATORY OF ABDOMEN 09/19/2023 ROCIO DRAIN TO BULB SUCTION 09/01/2023 for acute 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 with perforation, localized peritonitis, and gangrene. CURRENT MEDICATIONS: HYDROmorphone (DILAUDID) 2 mg tablet Take 1 tablet by mouth every 4 hours as needed for pain (take 1/2-1 tab every 4 hours as needed for moderate to severe pain) for up to 14 days. gabapentin (NEURONTIN) 300 mg capsule Take 1 capsule by mouth daily at bedtime for 14 days. OLANZapine (ZYPREXA) 10 mg tablet Take 1 tablet by mouth daily at bedtime. naloxone 4 mg/actuation nasal spray (NARCAN) Use 1 spray in one nostril as needed for overdose. Mayrepeat every 2 to 3 min in alternating nostrils until medical assistance is available ursodiol (ACTIGALL) 300 mg capsule Take 1 capsule by mouth two times a day. methocarbamol (ROBAXIN) 500 mg tablet Take 1 tablet by mouth two times a day as needed (spasm/pain)for up to 14 days. methocarbamol (ROBAXIN) 750 mg tablet Take 1 tablet by mouth three times a day. lidocaine (SALONPAS) 4 % patch Apply 2 patches to affected area as directed once daily. Keep patches on for 12 hour and remove patches after 12 hours. enoxaparin (LOVENOX) 30 mg/0.3 mL injection Inject 0.3 mL subcutaneously every 24 hours for 28 days. (Patient not taking: Reported on 09/16/2024) polyethylene glycol 3350 (MIRALAX) 17 gram packet Take 17 g by mouth once daily as needed for constipation. Dissolve dose in 4 - 8 ounces of liquid and take as directed. (Patient not taking: Reportedon 09/16/2024) senna-docusate (SENNA-S) 8.6-50 mg per tablet Take 1 tablet by mouth two times a day as needed for constipation. (Patient not taking: Reported on 09/16/2024) ondansetron orally disintegrating (ZOFRAN ODT) 4 mg disintegrating tablet Take 1 tablet by mouth every 8 hours as needed for nausea/vomiting. (Patient taking differently: Take 1 tablet by mouth every8 hours as needed for nausea/vomiting.) capecitabine (XELODA) 500 mg tablet Take 2 tablets (1000 mg) by mouth in the morning and 2 tablets (1000 mg) in the evening for 14 days on and 7 days off. Take with food (Patient not taking: Reportedon 09/16/2024) acetaminophen (TYLENOL EXTRA STRENGTH) 500 mg tablet Take 1-2 tablets by mouth every 6 hours as needed for pain. busPIRone (BUSPAR) 7.5 mg tablet Take 7.5 mg by mouth once daily. alendronate (FOSAMAX) 70 mg tablet Take 70 mg by mouth one time a week. On Saturdays sertraline (ZOLOFT) 50 mg tablet Take 50 mg by mouth once daily. divalproex ER (DEPAKOTE ER) 250 mg 24 hr tablet Take 2 tablets by mouth two times a day. (Patient taking differently: Take 2 tablets by mouth two times a day.) ALLERGIES: ALLERGIES Allergen Reactions Erythromycin Intolerance Mouth soreness and peeling. Denies swelling. Azithromycin Unknown Patient unable to recall allergy FAMILY HISTORY: FAMILY HISTORY Problem Relation Age of Onset Lung Cancer Mother Prostate Cancer Father Melanoma Sister No Known Problems Sister No Known Problems Sister No Known Problems Brother No Known Problems Brother No Known Problems Maternal Grandmother No Known Problems Maternal Grandfather Breast Cancer Paternal Grandmother No Known Problems Paternal Grandfather Anesthesia Problems No Family History Colon Cancer No Family History REVIEW OF SYSTEMS: Modified ESAS ([place] Symptom Assessment Scale): Information Provided By: Patient Pain: Moderate Nausea: Severe Loss of Appetite: None Constipation: None Shortness of Breath: None Drowsiness: None Tiredness: Mild Depression: Mild Anxiety: Mild How you feel overall: Fair ECOG PERFORMANCE STATUS: 2- Ambulatory and capable of all selfcare; unable to carry out work activities. Up and about > 50% of waking hrs. Objective PHYSICAL EXAMINATION: General: No shortness of breath; no fatigue; no falls in the last month. Skin: No skin breakdown reported on back or buttocks. MSK/Ext: No knee extension. DATA: Labs: - Serum creatinine: Slightly elevated, likely secondary to dehydration Tests: Imaging: Creatinine Date Value Ref Range Status 09/04/2024 0.45 (L) 0.58 - 0.96 mg/dL Final CrCl cannot be calculated (Unknown ideal weight.). Pathology: FINAL DIAGNOSIS A. Specimen designated right ovary, excision: - Leiomyoma (see comment). - Metastatic adenocarcinoma, morphologically consistent with colonic primary, involving peritoneal surface. - No ovarian parenchyma identified in sales and marketing representative sections. B. Right retroperitoneal mass, resection: - Recurrent/metastatic adenocarcinoma, morphologically consistent with colonic primary, involving right ovary and retroperitoneal soft tissue (see comment). - Definitive fallopian tube is not identified. C. Soft tissue, iliac margin, excision: - Small focus of adenocarcinoma, morphologically consistent with colonic primary, involving fibroadipose tissue. D. Additional mesenteric nodule, excision: - Metastatic adenocarcinoma involving one lymph node (03/27). E. Segments of ileum and colon with anastomosis, resection: - Recurrent/metastatic adenocarcinoma, morphologically consistent with colonic primary, involving small bowel and adherent abdominal wall soft tissue. - Circumferential (radial) margin is positive for tumor. - Intact anastomosis. - Nine lymph nodes, negative for malignancy (0/9). - Seven (7) tumor deposits. Contains abnormal data RENAL FUNCTION PANEL Order: [id number] Status: Final result Test Result Released: Yes (not seen) 0 Result Notes Component Ref Range & Units 2 wk ago (09/04/24) 2 wk ago (09/03/24) 2 wk ago (09/02/24) 2 wk ago (09/02/24) 2 wk ago (09/02/24) 2 wk ago (09/01/24) 2 wk ago (08/31/24) Albumin 3.9 - 4.9 g/dL 3.5 Low 3.3 Low 2.9 Low 2.7 Low 2.7 Low Calcium, Total 8.5 - 10.2 mg/dL 8.5 8.8 8.3 Low 8.0 Low 8.0 Low Phosphorus 2.7 - 4.8 mg/dL 4.5 4.0 4.0 4.0 3.3 Glucose 74 - 99 mg/dL 95 125 High CM 108 High CM 106 High CM 106 High CM Comment: The [place] [employer] (ADA) provides guidance for cutoff values for fasting glucose and random glucose. The ADA defines fasting as no caloric intake for at least 8 hours. Fastingplasma glucose results between 100 to 125 mg/dL indicate increased risk for diabetes (prediabetes). Fasting plasma glucose results greater than or equal to 126 mg/dL meet the criteria for diagnosis of diabetes. In the absence of unequivocal hyperglycemia, results should be confirmed by repeat testing. In a patient with classic symptoms of hyperglycemia or hyperglycemic crisis, random plasma glucose results greater than or equal to 200 mg/dL meet the criteria for diagnosis of diabetes. Reference: Standards of Medical Care in Diabetes 2016, [place] [employer]. Diabetes Care. 2016.39(Suppl 1). BUN 7 - 21 mg/dL 17 13 13 10 9 Creatinine 0.58 - 0.96 mg/dL 0.45 Low 0.40 Low 0.37 Low 0.40 Low 0.49 Low Sodium 136 - 144 mmol/L 139 139 138 138 142 Potassium 3.7 - 5.1 mmol/L 4.4 4.6 3.1 Low 3.4 Low 3.4 Low Chloride 98 - 107 mmol/L 106 102 98 101 104 CO2 22 - 30 mmol/L 24 26 28 28 27 Anion Gap 8 - 15 mmol/L 9 11 12 9 11 Estimated Glomerular Filtration Rate >=60 mL/min/1.73m 107 110 CM 112 CM 110 CM 105 CM Comment: Estimated Glomerular Filtration Rate (eGFR) is calculated using the 2020 CKD-EPI creatinine equation. This equation utilizes serum creatinine, sex, and age as parameters. The creatinine assay has traceable calibration to isotope dilution-mass spectrometry. Refer to KDIGO guidelines for clinical interpretation. In patients with unstable renal function, e.g. those with acute kidney injury,the eGFR may not accurately reflect actual GFR. Resulting Agency LAB LAB LAB LAB LAB LAB LAB Specimen Collected: 09/04/24 4:21 AM EDT Last Resulted: 09/04/24 5:22 AM EDT Lab Flowsheet Order Details View Encounter Lab and Collection Details Routing Result History View All Conversations on this Encounter CM=Additional comments Result Care Coordination Patient Communication Add Comments Add Notifications Back to Top Result Information Flag: Abnormal Abnormal Status: Final result (Resulted: 09/04/2024 5:22 AM) Provider Status: Open Contains abnormal data COMPLETE BLOOD COUNT Order: [id number] Status: Final result Test Result Released: Yes (not seen) 0 Result Notes Component Ref Range & Units 2 wk ago (09/04/24) 2 wk ago (09/03/24) 2 wk ago (09/02/24) 2 wk ago (09/01/24) 2 wk ago (08/31/24) 2 wk ago (08/30/24) 2 wk ago (08/30/24) WBC 3.70 - 11.00 k/uL 11.16 High 10.64 9.39 9.45 9.51 10.93 9.88 RBC 3.90 - 5.20 m/uL 3.59 Low 3.39 Low 3.23 Low 3.59 Low 3.42 Low 3.26 Low 2.17 Low Hemoglobin 11.5 - 15.5 g/dL 11.1 Low 10.8 Low 10.6 Low 11.3 Low 10.6 Low 10.3 Low 7.1 Low Hematocrit 36.0 - 46.0 % 34.1 Low 32.1 Low 30.7 Low 32.8 Low 30.9 Low 29.8 Low 21.5 Low MCV 80.0 - 100.0 fL 95.0 94.7 95.0 91.4 90.4 91.4 99.1 MCH 26.0 - 34.0 pg 30.9 31.9 32.8 31.5 31.0 31.6 32.7 MCHC 30.5 - 36.0 g/dL 32.6 33.6 34.5 34.5 34.3 34.6 33.0 RDW-CV 11.5 - 15.0 % 14.6 15.2 High 15.8 High 16.4 High 17.1 High 17.3 High 13.4 Platelet Count 150 - 400 k/uL 347 332 345 346 322 287 304 MPV 9.0 - 12.7 fL 9.0 9.3 9.9 9.9 9.5 9.6 9.6 Absolute nRBC <0.01 k/uL <0.01 <0.01 <0.01 <0.01 <0.01 <0.01 <0.01 Resulting Agency LAB LAB LAB LAB LAB LAB LAB Specimen Collected: 09/04/24 4:21 AM EDT Last Resulted: 09/04/24 4:55 AM EDT Lab Flowsheet Order Details View Encounter Lab and Collection Details Routing Result History View All Conversations on this Encounter Result Care Coordination Patient Communication Add Comments Add Notifications Back to Top Result Information Flag: Abnormal Abnormal Status: Final result (Resulted: 09/04/2024 4:55 AM) Provider Status: Open OPIOID RISK TOOL - OUD (ORT-OUD) Sana each box that applies Family History of Substance Abuse: Yes No Alcohol ___ (1) __x_ (0) Illegal drugs ___ (1) __x_ (0) Prescription drugs ___ (1) _x__ (0) Personal History of Substance Abuse: Alcohol _x__ (1) ___ (0) Illegal drugs __x_ (1) ___ (0) Prescription drugs ___ (1) _x__ (0) Age (sana box if between 16 and 45) ___ (1) _x__ (0) Psychological Disease Attention deficit disorder, obsessive- compulsive disorder, bipolar, schizophrenia ___ (1) _x__ (0) Depression _x__ (1) ___ (0) Scoring Totals: ___3_ ____ Scoring (risk): A score of 2 or lower indicates low risk for future opioid use disorder; a score of>/= 3 indicates high risk for opioid use disorder Opioid Management: Yes Indication for Opioid Prescribing: Cancer related pain Review of previous pain treatment and response to treatment completed?: Yes How much does pain impede patient s ability to engage in work or other purposeful activities, interfere with your activities of daily living, physical activity, or quality of your family life and social activities? Significantly Objective goals of treatment:Improved comfort and function based on an ongoing functional assessment Rationale for medication choice and dosage: Based on a review of patient's previous therapies, diagnosis, goals of therapy and an assessment of the risks and benefits of using opioid therapy Expected duration of treatment: At least three months, based on an ongoing assessment at least every three months ORT-OUD Score: 3 A score of 3 or higher may indicate a higher risk for future development of aberrant drug related behavior or opioid use disorder. History of substance misuse or substance use disorder?: No and Yes, Alcohol free quit 4 years ago. Used some recreational drugs in the Lab Results Component Value Date UAMPH Negative 09/09/2023 UBARB2 Negative 09/09/2023 UBENZ Negative 09/09/2023 UCOC2 Negative 09/09/2023 UOPI Negative 09/09/2023 UOXYC Negative 09/09/2023 UPCP Negative 09/09/2023 UTHC Preliminary positive (A) 09/09/2023 UETOH <11 09/09/2023 Urine Panel: No results found for: UQCANN, UQBNZL, IBD4KJD, UQAMPH, UQMAMP, UQBUPRE, UQNORBUP, UQMTHD, UQEDDP, UQTRAM, UQDTRM, UQFNTL, UQNFTL, UQCODE, UQMORP, UQDCDN, UQHCOD, UQOXYC, UQHMOR, UQOXYM, UQCREA, UQPH, UQSPGR, UQOXID, UQSPQ OARRS checked?: Yes, no abberancy Naloxone offered?: Yes, accepted Prescribed Morphine Equivalent Daily Dose (MEDD): Yes < 50 MEDD Chronic Opioid Management Agreement and Informed Consent: Will complete at next visit Edwardo Valencia APRN.BALL THREAD MACHINE TENDER Assessment & Plan 1. Palliative care by specialist (Z51.5) -Reviewed the role and structure of Palliative Medicine for patients with advanced life-limiting illnesses as a means of providing optimal symptom management as well as assisting with complex decision making. -Discussed Palliative Medicine at Home program does not replace the role of the PCP. -Discussed refills for medications prescribed for symptom management need to be requested a 2-3 days in advance during weekday business hours. Instructed to use after hours/weekend call for urgent issues only. 2.Cancer related pain (G89.3) Patient experiencing significant pain, currently rated at 5-6/10, with exacerbations in the evening. Pain is managed with Dilaudid 2 mg every 4 hours as needed, but patient is hesitant to take medication due to concerns about addiction. Patient also reports abdominal pain, particularly at night, att ributed to recent surgery involving muscle cutting and nerve ablation. Patient has a history of alcohol use disorder, abstinent for 4 years, contributing to concerns about opioid use. Patient is alsoexperiencing neuropathic pain in the leg due to femoral nerve involvement, leading to loss of knee control and functional limitations. -Current home med: Hydromorphone 2 mg tablet every 4 hours for moderate to severe pain - Educated patient on the importance of maintaining pain control to prevent severe pain episodes and potential hospital readmission. - Reassured patient about the low risk of addiction with current opioid dosage. - Emphasized the goal of keeping pain levels at 3-4/10 to maintain functionality and avoid emergency interventions. - Ordered a 14-day supply of Dilaudid 2 mg every 4 hours as needed. - Advised patient to take Extra Strength Tylenol 500 mg, two tablets TID to manage breakthrough pain. - Increased Gabapentin dosage to 300 mg at bedtime to address neuropathic pain; ordered a 14-day supply. - Scheduled a follow-up appointment in four weeks to assess pain management and adjust treatment asneeded. - Provided patient with contact information for the palliative care department for any questions orconcerns. 3. Severe protein-calorie malnutrition (HCC) (E43) Failure to thrive in adult (R62.7) Patient has significant weight loss, currently weighing 85 lbs. Reports poor appetite and difficulty finding foods that taste good. Consumes high-calorie Boost supplements 2-3 times daily. No issues with skin breakdown reported. Loose stools noted, but no severe diarrhea or constipation. - Initiated Olanzapine to stimulate appetite, reduce nausea, and address depressive symptoms. - Advised patient to continue high-calorie diet, including Boost supplements and calorie-dense foods. - Recommended zinc supplementation to improve taste perception. - Ordered Narcan to have on hand as a precautionary measure. - Monitor weight and nutritional intake; reassess in four weeks. 4. Nonintractable epilepsy without status epilepticus, unspecified epilepsy type (HCC) , (G40.909) Seizures (HCC) (R56.9) -Not discussed on this initial visit 5. Muscular deconditioning (R29.898) Patient reports loss of knee control and inability to perform certain movements due to femoral nerve involvement. Limited mobility and use of walker and cane at home. - Encouraged patient to engage in gentle exercises as tolerated to maintain muscle strength and prevent further deconditioning. - Monitor mobility and functional status; reassess in four weeks. 6. Adenocarcinoma of cecum (HCC) (C18.0) Malignant neoplasm of colon, unspecified part of colon (HCC) (C18.9) -Followed by oncology -CT abdomen pelvis 08/19: No evidence of bowel obstruction Increasing size of metastatic implants in the right lower quadrant and pelvis Patient has a history of adenocarcinoma of the cecum and unspecified part of the colon. Recent surgery involved muscle cutting and nerve ablation. Follow-up appointments scheduled with oncology and hematology. Right retroperitoneal mass, resection: - Recurrent/metastatic adenocarcinoma, morphologically consistent with colonic primary, involving right ovary and retroperitoneal soft tissue (see comment). - Continue current oncological management. - Follow-up with oncology on 10/[address] Moe on 10/24. 7. Opioid-induced constipation (K59.03) Patient reports no current issues with constipation, has stool softeners on hand. - Continue use of stool softeners as needed. - Monitor bowel movements and adjust treatment if necessary. 8. Major depressive disorder, recurrent, in partial remission (F33.41) Patient reports depressive symptoms, including anxiety and frustration related to loss of independence and functional limitations. No history of panic attacks. Patient has a strong family support system. - Initiated Olanzapine to address depressive symptoms. - Monitor mood and emotional well-being; reassess in four weeks. Serious Illness Conversation: Initial Virtual Visit, patient lives alone, has 3 sisters and 2 brothers, father (91 yrs old) Most live in [place]. Has a good friend who drives her to [place]. Family comes to visit for support. Briefly discussed goals at this time are to gain wt, not fall, gain some strength. ANTONIO will revisit face to face for more serious goals discussion. Existence of Advance Directives: Yes, documentation or copy in medical record HCPOA: Jeanette Garvin (sister); first alternate Brittney oKch, second alternate Calli Alfaro FULL CODE Next Visit: 4 Weeks in-person Palliative Medicine Nurse to do telephonic follow-up: No Communications Billing Analyst Services: None at this time Referral to Etl Data Architect: No, not at this time Recommendations will be communicated back to the consulting service by way of shared electronic medical record. (Some elements copied from inpatient palliative note dated 08/21/2024, Dr. Spring note on 09/16/24 which have been updated where appropriate, and reflect current medical decision making from today, 09/20/24.) Edwardo Valencia APRN.CNP September 20, 2024 12:54 PM documented in this encounterSt[facility] Note[facility] Telephone encounter Note* Telephone Encounter - Rema Beltre RN - 09/16/2024 2:35 PM EDT Called patient on 09/[address] [facility] Miscellaneous Notes* Telephone Encounter - Rema Beltre RN - 09/16/2024 2:35 PM EDT Called patient on 09/13 to discuss. documented in this encounterSt. [facility]06-[facility]-2025 NoteC[facility] History of Present illness Narrative* Tessa Spring MD - 09/16/2024 10:40 AM EDT Images from the original note were not included. [facility] SURGERY FOLLOW UP VISIT Follow up visit after ex lap, SBR and redo ileocolic anastomosis, resection of R RP mass, repair ofiliac vein, and resection of pelvic mass on 08/28/2024 UPDATED HISTORY: Lakesha Koch is a 64 year old female who underwent a x lap, SBR and redo ileocolic anastomosis, resection of R RP mass, repair of iliac vein, and resection of pelvic mass on 08/28/2024 for recurrent metastatic colon cancer. Lakesha has been recovering well, currently in rehab, but reports intermittent abdominal pain described as a really tight feeling in the gut, which she initially thought were muscle cramps. The painis diffuse, involving the entire abdomen, and is not localized to the incision site. It does not radiate to the back. The last 2 days have been relatively pain-free. She also reports a new rash on her abdomen, which she attributes to tape used in the rehab facility. The rash is improving after removing the tape. She also reports a deep ache in her knee, which was pounding last night. She experiences tinglingand needle-prick sensations in the area. She denies any cramping in the calf or thigh. PHYSICAL FINDINGS OF NOTE: General: AOx3, NAD Abdomen: soft, ND, NTTP. Incision healed. Medical Decision Making: Assessment Assessment & Diagnosis: 4 year old female who underwent a x lap, SBR and redo ileocolic anastomosis, resection of R RP mass, repair of iliac vein, and resection of pelvic mass on 08/28/2024 for recurrent metastatic colon cancer. Pathology: FINAL DIAGNOSIS A. Specimen designated right ovary, excision: - Leiomyoma (see comment). - Metastatic adenocarcinoma, morphologically consistent with colonic primary, involving peritoneal surface. - No ovarian parenchyma identified in sales and marketing representative sections. B. Right retroperitoneal mass, resection: - Recurrent/metastatic adenocarcinoma, morphologically consistent with colonic primary, involving right ovary and retroperitoneal soft tissue (see comment). - Definitive fallopian tube is not identified. C. Soft tissue, iliac margin, excision: - Small focus of adenocarcinoma, morphologically consistent with colonic primary, involving fibroadipose tissue. D. Additional mesenteric nodule, excision: - Metastatic adenocarcinoma involving one lymph node (03/27). E. Segments of ileum and colon with anastomosis, resection: - Recurrent/metastatic adenocarcinoma, morphologically consistent with colonic primary, involving small bowel and adherent abdominal wall soft tissue. - Circumferential (radial) margin is positive for tumor. - Intact anastomosis. - Nine lymph nodes, negative for malignancy (0/9). - Seven (7) tumor deposits. Treatment plan: Muscle relaxant for myah-incisional abdominal spasms. I also prescribed Actigall for suspected biliary colic during her ED visit a few days ago. My suspicion is low but I educated the patient on the characteristics of biliary colic and instructed her to start Actigall if she has those symptoms. Continue PT as scheduled. I strongly advised her to gain weight and prescribed a new hinged knee brace to help with PT. Return to clinic in 3-4 weeks. Patient is still in the acute recovery phase. Will discuss with Med Onc about the need for further chemotherapy once she completes her recovery based on the pathology report. Tessa Spring MD [facility] / [facility] * Fátima Lubin MA - 09/16/2024 10:33 AM EDT What is the reason for your visit today? 08/28/24 ex lap, mass resection Who is your referring physician? Are you having poor oral intake? NO Have you had unintentional weight loss of 15 lbs/7 Kg in the last 3-6 months? NO Bowels: loose Wound: rash Temperature: No Drains: No * Rema Beltre RN - 09/16/2024 10:30 AM EDT New/Est pt: established patient Reason for apt: s/p 08/28 ex lap, colectomy, mass resection Pathology: FINAL DIAGNOSIS A. Specimen designated right ovary, excision: - Leiomyoma (see comment). - Metastatic adenocarcinoma, morphologically consistent with colonic primary, involving peritoneal surface. - No ovarian parenchyma identified in sales and marketing representative sections. B. Right retroperitoneal mass, resection: - Recurrent/metastatic adenocarcinoma, morphologically consistent with colonic primary, involving right ovary and retroperitoneal soft tissue (see comment). - Definitive fallopian tube is not identified. C. Soft tissue, iliac margin, excision: - Small focus of adenocarcinoma, morphologically consistent with colonic primary, involving fibroadipose tissue. D. Additional mesenteric nodule, excision: - Metastatic adenocarcinoma involving one lymph node (03/27). E. Segments of ileum and colon with anastomosis, resection: - Recurrent/metastatic adenocarcinoma, morphologically consistent with colonic primary, involving small bowel and adherent abdominal wall soft tissue. - Circumferential (radial) margin is positive for tumor. - Intact anastomosis. - Nine lymph nodes, negative for malignancy (0/9). - Seven (7) tumor deposits. documented in this encounterSt. [facility]06-23-2025 NoteC[facility]06-[facility]-2025 NoteC[facility]06-[facility]-2025 Discharge summary Author Qamar Smith [facility] Note Date/Time September 13, 2024 3:01 pm [facility] Medical Records Department [address] [place] [id number] Discharge Summary 09/12/242028 MR#: [id number] Acct: [id number] Name: LAKESHA KOCH ILENE Rep #:[id number] : 1960 64 From: Qamar Smith MD PCP: Aubrey Lopez MECHANIC SENIOR-C Status:ADM IN Location: [place] [id number] Providers Date of Admission: 09/04/24 Primary Care Physician: VEENA Kothari, MECHANIC SENIOR-C Reason For Visit: ABD PAIN; STAGE 2 CEALCAL ADENOCARCINOMA Diagnosis Discharge Diagnosis (1) Debility: Status: Acute Code(s): R53.81 - Other malaise (2) Colon cancer: Status: Acute Code(s): C18.9 - Malignant neoplasm of colon, unspecified (3) Seizure disorder: Status: Acute Code(s): G40.909 - Epilepsy, unspecified, not intractable, without status epilepticus (4) Osteoporosis: Status: Acute Code(s): M81.0 - Age-related osteoporosis without current pathological fracture (5) Anxiety: Status: Acute Code(s): F41.9 - Anxiety disorder, unspecified (6) GERD (gastroesophageal reflux disease): Status: Acute Code(s): K21.9 - Gastro-esophageal reflux disease without esophagitis (7) Hypokalemia: Status: Resolved Code(s): E87.6 - Hypokalemia (8) Depression: Status: Acute Code(s): F32.9 - Major depressive disorder, single episode, unspecified Plan 64 year old female with recurrent cecal colon cancer underwent exploratory laparotomy, extensive adhesiolysis, retroperitoneal mass resection with en blockresection of right fallopian tube, right oophorectomy, small bowel resection with revision of iliac colic anastomosis, ureteral stent placement, and femoral nerve ligation 08/28/2024, postoperative course complicated by anemia, pain, nausea/vomiting, admitted to TCU with debility, here for rehabilitation, strengthening, prior to discharge home alone. * Debility - PT/OT. * Pain - Tylenol 1000mg q8, Lidoderm 2 patches td daily, Dilaudid 4mg q4 prn pain (6-10), consider consulting pain management. * Bowel - Miralax 17gm daily prn, Senna/colace 1 tablet bid. * Adult immunization - Administer pneumonia vaccine, covid vaccine, flu vaccine as appropriate. * DVT prophylaxis - Lovenox 30mg sc daily. * Osteoporosis - Alendronate 70mg qweek. * Seizure disorder - Depakote ER 500mg bid. * Neuropathic pain - Gabapentin 100mg qhs. * Muscle spasm - Robaxin 750mg q8. * Nausea - Zofran odt 4mg q8 prn. The following psychotropic medication was present on admission: Buspar 7.5mg daily. Psychotropic medication therapy is indicated for a diagnosis of: Anxiety. Based on my clinical evaluation, continuation of the medication is necessary at this time. Gradual dose reduction plan (select one): ____ GDR will be attempted. Will monitor patient symptoms and behaviors in response to GDR. __x__ GRD contraindicated. Reason contraindicated: stable chronic fpc use. The following psychotropic medication was present on admission: Sertraline 50mg daily. Psychotropic medication therapy is indicated for a diagnosis of: Depression. Based on my clinical evaluation, continuation of the medication is necessary at this time. Gradual dose reduction plan (select one): ____ GDR will be attempted. Will monitor patient symptoms and behaviors in response to GDR. __x__ GRD contraindicated. Reason contraindicated: stable chronic fpc use. Medications at Discharge Home Medications alendronate 70 mg tablet 70 mg PO QWEEK [facility] 10/18/23 buspirone 7.5 mg tablet 7.5 mg PO DAILY Mood 10/18/23 sertraline 50 mg tablet 50 mg PO DAILY Mood 10/18/23 acetaminophen 500 mg tablet 1,000 mg (2 x 500 mg) PO Q8 #0 tabs 09/12/24 gabapentin 100 mg capsule 100 mg PO QHS 30 days #30 caps 09/12/24 hydromorphone 2 mg tablet 2 - 4 mg (1 - 2 x 2 mg) PO Q4H PRN PRN PAIN 6-10 7 days #42 tabs 09/12/24 hydroxyzine pamoate 25 mg capsule 50 mg (2 x 25 mg) PO TID PRN PRN Itching 30 days #90 caps 09/12/24 lidocaine 5 % topical patch 2 patch topical DAILY 30 days #60 ea 09/12/24 methocarbamol 750 mg tablet 750 mg PO Q8 30 days #90 tabs 09/12/24 ondansetron 4 mg disintegrating tablet 4 mg PO Q8H PRN PRN Nausea 30 days #90 tabs 09/12/24 Hospital Course Operations - (See below.) Procedures None Summary of Care Provided Minutes Spent on Discharge: 35 Hospital Course: 64 year old female with recurrent cecal colon cancer underwent exploratory laparotomy, extensive adhesiolysis, retroperitoneal mass resection with en blockresection of right fallopian tube, right oophorectomy, small bowel resection with revision of iliac colic anastomosis, ureteral stent placement, and femoral nerve ligation 08/28/2024, postoperative course complicated by anemia, pain, nausea/vomiting, admitted to TCU with debility, here for rehabilitation, strengthening, prior to discharge home alone. Discharge home alone 09/15/2024, [facility] PT, pending acceptance. Physical Exam Const alert General Appearance: cooperative HEENT normocephalic Eyes PERRL and EOMs intact bilaterally Neck supple, no JVD and no carotid bruits Resp normal respiratory effort, normal air movement and clear to auscultation bilaterally Cardio regular rate and regular rhythm GI normal to inspection, nondistended, normoactive bowel sounds, non-tender and non-distended Extremity normal capillary refill General Extremity: Negative for edema Skin no rashes or lesions noted General Skin Exam: no breakdown Psych affect normal Appearance: appropriate Medical Records Data Medical Nutrition Assessment Dietitian: Malnutrition Criteria Met Start: 09/05/24 16:25 Freq: Status: Active Protocol: Document 09/11/24 14:51 SLA (Rec: 09/11/24 14:51 SLA [email or web address]) Nutrition Malnutrition Evidence of Yes Malnutrition Exists Malnutrition ( Chronic moderate): Malnutrition ( Moderate pro/dillan unspecified) Evidenced By Suboptimal Energy Intake (Moderate),Weight Loss ( Moderate),Physical Changes (Mild) Clinical Problem Chronic Disease or Condition Related Malnutrition Etiology related to chronic condition, cecal adenocarcinoma w/ inability gain wt to UBW: 50 kg Signs/Symptoms mild wasting of temples, clavicles, thigh, calf, orbital and rib regions, and <75% energy intake x >1 month, 20% weight loss x 1 year. Status Active Problem Recommendation Dietitian Change diet to Regular per diet order to advance 2 wks Recommendations/ post surgery Changes Continue EPHP tid w/ meals Add magic cup w/ lunch and dinner for increased nutrition if consumed Add fortified foods tid w/ meals as able for increased nutrition if consumed. Weight / BMI Weight Weight: 40.007 kg Body Mass Index (BMI) 15.1 ABG / Lab / Microbiology Data 09/12/24 05:35 09/12/24 05:35 Laboratory: Laboratory Results - last 24 hr 09/12/24 05:35: WBC 13.5 H, RBC 4.05 L, Hgb 12.8, Hct 38.1, MCV 94.1, MCH 31.6, MCHC 33.6, RDW Std Deviation 47.8 H, RDW Coeff of Yury 13.9, Plt Count 530 H, MPV9.4, Immature Gran % (Auto) 0.300, Neut % (Auto) 71.1 H, Lymph % (Auto) 17.0 L, Campbell % (Auto) 7.2, Eos % (Auto) 3.4, Baso % (Auto) 1.0, Absolute Neuts (auto) 9.6 H, Absolute Lymphs (auto) 2.30, Nucleated RBC % 0, Sodium 139, Potassium 3.9, Chloride 99, Carbon Dioxide 27.6, Anion Gap 12, BUN 30 H, Creatinine 0.66 L, Estim Creat Clear Calc 44.28 L, Est GFR (MDRD) Non-Af 97, BUN/Creatinine Ratio45.8 H, Glucose 127 H, Calcium 8.9 D/C Instructions Discharge Diet: No restrictions Discharge Activity: Return to Normal Activity, May Shower and Use Walker Weight Bearing Status: Weight bearing as tolerated Call your doctor if you observe: Fever of 101 or Higher, Inability to urinate, Inability to have a bowel movement, Shortness of breath, Dizziness, Fainting spells, Swelling in the ankles, Chest pain and Uncontrolled pain DC O2, CPAP, BIPAP Needs Home O2 Discharge instructions: No Additional Instructions: Discharge home alone 09/15/2024, [facility] PT, pending acceptance. Please Follow Up With: Pharmacy with [facility] pharmacist Meaningful Use Info Meaningful Use Meaningful Use Diagnoses (Choose all that apply): None applicable Ischemic Stroke Statin Dosing Therapy Reference: STATIN DOSE THERAPY REFERENCE: * Patients > 75 years receive moderate or high dose statin therapy. * Patients 75 years or YOUNGER should receive HIGH intensity statin dose unless contraindicated. You will be required to document reason for non-treatment if statin daily dose does not meet guidelines. HIGH DOSE STATIN THERAPY DAILY Atorvastatin > than or = to 40 mg Rosuvastatin > than or = to 20 mg Amlodipine + Atorvastatin > than or = to 2.5/40 mg Ezetimibe + Simvastatin 10/80 mg Simvastatin 80mg Discharge Plan Admission Admit Date/Time: 09/04/24 15:29 Primary Reason for Your Visit: Debility. Attending Provider: Qamar Smith Chi Primary Care Provider: Aubrey Lopez [facility] Instructions Additional Instructions / Restrictions: Discharge home alone 09/15/2024, [facility] PT, pending acceptance. Discharge Orders/Prescriptions Prescriptions: New acetaminophen 500 mg Tablet 1,000 mg PO Q8 Qty: 0 0RF hydromorphone 2 mg Tablet 2 - 4 mg PO Q4H PRN PRN (Reason: PAIN 6-10) 7 Days Qty: 42 0RF methocarbamol 750 mg Tablet 750 mg PO Q8 30 Days Qty: 90 0RF lidocaine 5 % Adhesive Patch,Medicated 2 patch topical DAILY 30 Days Qty: 60 0RF gabapentin 100 mg Capsule 100 mg PO QHS 30 Days Qty: 30 0RF ondansetron 4 mg Tablet,Disintegrating 4 mg PO Q8H PRN PRN (Reason: Nausea) 30 Days Qty: 90 0RF hydroxyzine pamoate 25 mg Capsule 50 mg PO TID PRN PRN (Reason: Itching) 30 Days Qty: 90 0RF Continued sertraline 50 mg tablet 50 mg PO DAILY alendronate 70 mg tablet 70 mg PO QWEEK Patient Comments: Take once a week on Saturdays. buspirone 7.5 mg tablet 7.5 mg PO DAILY Discontinued clonazepam 0.25 MG tablet,disintegrating 0.25 mg PO PRN PRN (Reason: Seizures) lacosamide 100 mg Tablet 100 mg PO BID Qty: 60 1RF divalproex 500 mg tablet extended release 24 hr 500 mg PO BID calcium polycarbophil [Fiber Laxative (ca polycarbo)] 625 mg tablet 625 mg PO BID pantoprazole 40 mg tablet,delayed release (DR/EC) 40 mg PO DAILY potassium chloride 20 mEq tablet,ER particles/crystals 20 meq PO DAILY sennosides [senna] 8.6 mg tablet 8.6 mg PO BID acetaminophen 500 mg capsule 500 - 1,000 mg PO Q6H fluconazole [Diflucan] 200 mg tablet 200 mg PO X1 Qty: 2 0RF Rx Instructions: Take 1 tab with signs of yeast infection, if no results in 72 hours take the other ondansetron 4 mg tablet,disintegrating 4 mg PO Q6H PRN (Reason: nausea and vomiting) Qty: 15 0RF ondansetron 4 mg tablet,disintegrating 4 mg PO Q8H PRN PRN (Reason: Nausea) Qty: 10 0RF enoxaparin 30 mg/0.3 mL syringe 30 mg subcut Q24H lidocaine [Lidocaine Pain Relief] 4 % adhesive patch,medicated 2 patch topical DAILY Rx Instructions: may leave on for up to 12 hrs methocarbamol 500 mg tablet 750 mg PO Q8H gabapentin 100 mg capsule 100 mg PO QHS polyethylene glycol 3350 17 gram/dose powder 17 g PO DAILY PRN (Reason: constipation) sennosides-docusate sodium [Senna Plus] 8.6-50 mg tablet 1 tab-cap PO BID hydromorphone 2 mg tablet 1 - 2 mg PO Q4H PRN (Reason: pain (scale score 7-10)) sulfamethoxazole-trimethoprim [Bactrim DS] 800-160 mg tablet 1 tab PO BID Qty: 26 0RF amoxicillin-pot clavulanate 875-125 mg tablet 1 tab PO BID Qty: 26 0RF Referrals / Follow Up: Aubrey Loepz, MECHANIC SENIOR-C [Primary Care Provider] - Disposition Disposition (needs filled in before D/C Order can be placed): Home Health Service 09/12/242041 <Electronically signed by Qamar Smith MD> Cosigner Signature (if applicable): CC: Dr. Qamar Smith MD; Aubrey CURIEL MECHANIC SENIOR-C Beam~ Signed ADDENDUM by Dr. Qamar Smith MD on 09/13/24 at 1436 Addendum 09/11/2024 Mild abdominal pain after eating. 09/12/2024 Moderate abdominal pain after eating. 09/13/2024 Post prandial abdominal pain persists. 09/13/2024 CT abdomen/pelvis: IMPRESSION: 1. Interval decrease in the inflammatory reaction surrounding the cecum and terminal ileum. There is no residual thickening of the cecal wall. The ileocecal valve and terminal ileum are unremarkable. Thereis residual dilatation of the mesenteric small bowel without obstruction. 2. The gallbladder is hydropic measuring 4.6 cm in short axis diameter. This condition was not present previously. 3. There is free fluid in the abdomen not present previously. 4. Other findings as noted. 09/13/2024 Ultrasound gallbladder done, results pending. I spoke with patient regarding her results, that she may have gallstone obstructing her gallbladder. She had been doing well with therapy and was planning on discharging home 09/14/2024. We discussed she may need cholecystostomy tube or eventual cholecystectomy, she would prefer to return to [facility] for care, vital signs stable. Discharge to [facility] Emergency Department 09/13/2024, for evaluation, admission to hospital. 09/13/24 1436<Electronically signed by Qamar Smith MD> Cosigner Signature (if applicable): cc: Dr. Qamar Smith MD; [facility] MECHANIC SENIOR-C Beam ~* Signed ADDENDUM by Dr. Qamar Smith MD on 09/13/24 at 1501 Addendum Gallbladder ultrasound cancelled due to patient having eaten. 09/13/24 1501<Electronically signed by Qamar Smith MD> Cosigner Signature (if applicable): cc: Dr. Qamar Smith MD; [facility] MECHANIC SENIOR-C Beam ~* Signed [facility] Work Phone: [phone] 571-390106-20-2025 Telephone encounter Note* Telephone Encounter - Rema Beltre RN - 09/13/2024 4:23 PM EDT Called and spoke with patient. She started having severe sharp intermediate abdominal pain on Monday. Went to [facility] and had imaging done. 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, they were suggesting surgery or drainplacement at [place], but patient is wanting to come back to for Dr. Spring's opinion. Advised patient she should report to ER, however, patient is scheduled for a follow up on with Dr. Spring and would like to wait until Monday to see him instead of going to ER. Patient understanding if pain becomes worse to report to ER. [facility]06-20-2025 Miscellaneous Notes* Telephone Encounter - Rema Beltre RN - 09/13/2024 4:23 PM EDT Called and spoke with patient. She started having severe sharp intermediate abdominal pain on Monday. Went to [facility] and had imaging done. 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, they were suggesting surgery or drainplacement at [place], but patient is wanting to come back to for Dr. Spring's opinion. Advised patient she should report to ER, however, patient is scheduled for a follow up on with Dr. Spring and would like to wait until Monday to see him instead of going to ER. Patient understanding if pain becomes worse to report to ER. * Telephone Encounter - Brittany Mariscal - 09/13/2024 2:20 PM EDT Patient called and left a message regarding post operative Exploratory laparotomy Extensive lysis of adhesions >1 hour Resection of right retroperitoneal mass 7 cm Right salpingo-oophorectomy Resection of right femoral nerve Exposure of right iliac artery Primary repair of right iliac vein (involved by tumor) Small bowel resection (including previous anastomosis) and end-to-side hand-sewn single layer ileocolic anastomosis and concerns regarding having a possible gallbladder problem return call to [phone] [facility] Discharge summary [facility] Medical Records Department [address] [place] [id number] Discharge Summary 09/12/242028 MR#: [id number] Acct: [id number] Name: LAKESHA KOCH Rep #:[id number] : 1960 64 From: Qamar Smith MD PCP: Aubrey Lopez MECHANIC SENIORNeptali Status:ADM IN Location: [facility] TCU10-1 Providers Date of Admission: 09/04/24 Primary Care Physician: VEENA Kothari, MECHANIC SENIOR-C Reason For Visit: ABD PAIN; STAGE 2 CEALCAL ADENOCARCINOMA Diagnosis Discharge Diagnosis (1) Debility: Status: Acute Code(s): R53.81 - Other malaise (2) Colon cancer: Status: Acute Code(s): C18.9 - Malignant neoplasm of colon, unspecified (3) Seizure disorder: Status: Acute Code(s): G40.909 - Epilepsy, unspecified, not intractable, without status epilepticus (4) Osteoporosis: Status: Acute Code(s): M81.0 - Age-related osteoporosis without current pathological fracture (5) Anxiety: Status: Acute Code(s): F41.9 - Anxiety disorder, unspecified (6) GERD (gastroesophageal reflux disease): Status: Acute Code(s): K21.9 - Gastro-esophageal reflux disease without esophagitis (7) Hypokalemia: Status: Resolved Code(s): E87.6 - Hypokalemia (8) Depression: Status: Acute Code(s): F32.9 - Major depressive disorder, single episode, unspecified Plan 64 year old female with recurrent cecal colon cancer underwent exploratory laparotomy, extensive adhesiolysis, retroperitoneal mass resection with en blockresection of right fallopian tube, right oophorectomy, small bowel resection with revision of iliac colic anastomosis, ureteral stent placement,and femoral nerve ligation 08/28/2024, postoperative course complicated by anemia, pain, nausea/vomiting, admitted to TCU with debility, here for rehabilitation, strengthening, prior to discharge home alone. * Debility - PT/OT. * Pain - Tylenol 1000mg q8, Lidoderm 2 patches td daily, Dilaudid 4mg q4 prn pain (6-10), consider consulting pain management. * Bowel - Miralax 17gm daily prn, Senna/colace 1 tablet bid. * Adult immunization - Administer pneumonia vaccine, covid vaccine, flu vaccine as appropriate. * DVT prophylaxis - Lovenox 30mg sc daily. * Osteoporosis - Alendronate 70mg qweek. * Seizure disorder - Depakote ER 500mg bid. * Neuropathic pain - Gabapentin 100mg qhs. * Muscle spasm - Robaxin 750mg q8. * Nausea - Zofran odt 4mg q8 prn. The following psychotropic medication was present on admission: Buspar 7.5mg daily. Psychotropic medication therapy is indicated for a diagnosis of: Anxiety. Based on my clinical evaluation, continuation of the medication is necessary at this time. Gradual dose reduction plan (select one): ____ GDR will be attempted. Will monitor patient symptoms and behaviors in response to GDR. __x__ GRD contraindicated. 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 The following psychotropic medication was present on admission: Sertraline 50mg daily. Psychotropic medication therapy is indicated for a diagnosis of: Depression. Based on my clinical evaluation, continuation of the medication is necessary at this time. Gradual dose reduction plan (select one): ____ GDR will be attempted. Will monitor patient symptoms and behaviors in response to GDR. __x__ GRD contraindicated. Reason contraindicated: stable chronic fpc use. Medications at Discharge Home Medications alendronate 70 mg tablet 70 mg PO QWEEK [facility] 10/18/23 buspirone 7.5 mg tablet 7.5 mg PO DAILY Mood 10/18/23 sertraline 50 mg tablet 50 mg PO DAILY Mood 10/18/23 acetaminophen 500 mg tablet 1,000 mg (2 x 500 mg) PO Q8 #0 tabs 09/12/24 gabapentin 100 mg capsule 100 mg PO QHS 30 days #30 caps 09/12/24 hydromorphone 2 mg tablet 2 - 4 mg (1 - 2 x 2 mg) PO Q4H PRN PRN PAIN 6-10 7 days #42 tabs 09/12/24 hydroxyzine pamoate 25 mg capsule 50 mg (2 x 25 mg) PO TID PRN PRN Itching 30 days #90 caps 09/12/24 lidocaine 5 % topical patch 2 patch topical DAILY 30 days #60 ea 09/12/24 methocarbamol 750 mg tablet 750 mg PO Q8 30 days #90 tabs 09/12/24 ondansetron 4 mg disintegrating tablet 4 mg PO Q8H PRN PRN Nausea 30 days #90 tabs 09/12/24 Hospital Course Operations - (See below.) Procedures None Summary of Care Provided Minutes Spent on Discharge: 35 Hospital Course: 64 year old female with recurrent cecal colon cancer underwent exploratory laparotomy, extensive adhesiolysis, retroperitoneal mass resection with en blockresection of right fallopian tube, right oophorectomy, small bowel resection with revision of iliac colic anastomosis, ureteral stent placement,and femoral nerve ligation 08/28/2024, postoperative course complicated by anemia, pain, nausea/vomiting, admitted to TCU with debility, here for rehabilitation, strengthening, prior to discharge home alone. Discharge home alone 09/15/2024, [facility] PT, pending acceptance. Physical Exam Const alert General Appearance: cooperative HEENT normocephalic Eyes PERRL and EOMs intact bilaterally Neck supple, no JVD and no carotid bruits Resp normal respiratory effort, normal air movement and clear to auscultation bilaterally Cardio regular rate and regular rhythm GI normal to inspection, nondistended, normoactive bowel sounds, non-tender and non-distended Extremity normal capillary refill General Extremity: Negative for edema Skin no rashes or lesions noted General Skin Exam: no breakdown Psych affect normal Appearance: appropriate Medical Records Data Medical Nutrition Assessment Dietitian: Malnutrition Criteria Met Start: 09/05/24 16:25 Freq: Status: Active Protocol: Document 09/11/24 14:51 SLA (Rec: 09/11/24 14:51 SLA [id number]) Nutrition Malnutrition Evidence of Yes Malnutrition Exists Malnutrition ( Chronic moderate): Malnutrition ( Moderate pro/dillan unspecified) Evidenced By Suboptimal Energy Intake (Moderate),Weight Loss ( Moderate),Physical Changes (Mild) Clinical Problem Chronic Disease or Condition Related Malnutrition Etiology related to chronic condition, cecal adenocarcinoma w/ inability gain wt to UBW: 50 kg Signs/Symptoms mild wasting of temples, clavicles, thigh, calf, orbital and rib regions, and <75% energy intake x >1 month, 20% weight loss x 1 year. Status Active Problem Recommendation Dietitian Change diet to Regular per diet order to advance 2 wks Recommendations/ post surgery Changes Continue EPHP tid w/ meals Add magic cup w/ lunch and dinner for increased nutrition if consumed Add fortified foods tid w/ meals as able for increased nutrition if consumed. Weight / BMI Weight Weight: 40.007 kg Body Mass Index (BMI) 15.1 ABG / Lab / Microbiology Data 09/12/24 05:35 09/12/24 05:35 Laboratory: Laboratory Results - last 24 hr 09/12/24 05:35: WBC 13.5 H, RBC 4.05 L, Hgb 12.8, Hct 38.1, MCV 94.1, MCH 31.6, MCHC 33.6, RDW Std Deviation 47.8 H, RDW Coeff of Yury 13.9, Plt Count 530 H, MPV9.4, Immature Gran % (Auto) 0.300, Neut% (Auto) 71.1 H, Lymph % (Auto) 17.0 L, Campbell % (Auto) 7.2, Eos % (Auto) 3.4, Baso % (Auto) 1.0, Absolute Neuts (auto) 9.6 H, Absolute Lymphs (auto) 2.30, Nucleated RBC % 0, Sodium 139, Potassium 3.9,Chloride 99, Carbon Dioxide 27.6, Anion Gap 12, BUN 30 H, Creatinine 0.66 L, Estim Creat Clear Calc44.28 L, Est GFR (MDRD) Non-Af 97, BUN/Creatinine Ratio45.8 H, Glucose 127 H, Calcium 8.9 D/C Instructions Discharge Diet: No restrictions Discharge Activity: Return to Normal Activity, May Shower and Use Walker Weight Bearing Status: Weight bearing as tolerated Call your doctor if you observe: Fever of 101 or Higher, Inability to urinate, Inability to have a bowel movement, Shortness of breath, Dizziness, Fainting spells, Swelling in the ankles, Chest pain and Uncontrolled pain DC O2, CPAP, BIPAP Needs Home O2 Discharge instructions: No Additional Instructions: Discharge home alone 09/15/2024, [facility] PT, pending acceptance. Please Follow Up With: Pharmacy with [facility] pharmacist Meaningful Use Info Meaningful Use Meaningful Use Diagnoses (Choose all that apply): None applicable Ischemic Stroke Statin Dosing Therapy Reference: STATIN DOSE THERAPY REFERENCE: * Patients > 75 years receive moderate or high dose statin therapy. * Patients 75 years or YOUNGER should receive HIGH intensity statin dose unless contraindicated. You will be required to document reason for non-treatment if statin daily dose does not meet guidelines. HIGH DOSE STATIN THERAPY DAILY Atorvastatin > than or = to 40 mg Rosuvastatin > than or = to 20 mg Amlodipine + Atorvastatin > than or = to 2.5/40 mg Ezetimibe + Simvastatin 10/80 mg Simvastatin 80mg Discharge Plan Admission Admit Date/Time: 09/04/24 15:29 Primary Reason for Your Visit: Debility. Attending Provider: Qamar Smith Chi Primary Care Provider: Aubrey Lopez [facility] Instructions Additional Instructions / Restrictions: Discharge home alone 09/15/2024, [facility] PT, pending acceptance. Discharge Orders/Prescriptions Prescriptions: New acetaminophen 500 mg Tablet 1,000 mg PO Q8 Qty: 0 0RF hydromorphone 2 mg Tablet 2 - 4 mg PO Q4H PRN PRN (Reason: PAIN 6-10) 7 Days Qty: 42 0RF methocarbamol 750 mg Tablet 750 mg PO Q8 30 Days Qty: 90 0RF lidocaine 5 % Adhesive Patch,Medicated 2 patch topical DAILY 30 Days Qty: 60 0RF gabapentin 100 mg Capsule 100 mg PO QHS 30 Days Qty: 30 0RF ondansetron 4 mg Tablet,Disintegrating 4 mg PO Q8H PRN PRN (Reason: Nausea) 30 Days Qty: 90 0RF hydroxyzine pamoate 25 mg Capsule 50 mg PO TID PRN PRN (Reason: Itching) 30 Days Qty: 90 0RF Continued sertraline 50 mg tablet 50 mg PO DAILY alendronate 70 mg tablet 70 mg PO QWEEK Patient Comments: Take once a week on Saturdays. buspirone 7.5 mg tablet 7.5 mg PO DAILY Discontinued clonazepam 0.25 MG tablet,disintegrating 0.25 mg PO PRN PRN (Reason: Seizures) lacosamide 100 mg Tablet 100 mg PO BID Qty: 60 1RF divalproex 500 mg tablet extended release 24 hr 500 mg PO BID calcium polycarbophil [Fiber Laxative (ca polycarbo)] 625 mg tablet 625 mg PO BID pantoprazole 40 mg tablet,delayed release (DR/EC) 40 mg PO DAILY potassium chloride 20 mEq tablet,ER particles/crystals 20 meq PO DAILY sennosides [senna] 8.6 mg tablet 8.6 mg PO BID acetaminophen 500 mg capsule 500 - 1,000 mg PO Q6H fluconazole [Diflucan] 200 mg tablet 200 mg PO X1 Qty: 2 0RF Rx Instructions: Take 1 tab with signs of yeast infection, if no results in 72 hours take the other ondansetron 4 mg tablet,disintegrating 4 mg PO Q6H PRN (Reason: nausea and vomiting) Qty: 15 0RF ondansetron 4 mg tablet,disintegrating 4 mg PO Q8H PRN PRN (Reason: Nausea) Qty: 10 0RF enoxaparin 30 mg/0.3 mL syringe 30 mg subcut Q24H lidocaine [Lidocaine Pain Relief] 4 % adhesive patch,medicated 2 patch topical DAILY Rx Instructions: may leave on for up to 12 hrs methocarbamol 500 mg tablet 750 mg PO Q8H gabapentin 100 mg capsule 100 mg PO QHS polyethylene glycol 3350 17 gram/dose powder 17 g PO DAILY PRN (Reason: constipation) sennosides-docusate sodium [Senna Plus] 8.6-50 mg tablet 1 tab-cap PO BID hydromorphone 2 mg tablet 1 - 2 mg PO Q4H PRN (Reason: pain (scale score 7-10)) sulfamethoxazole-trimethoprim [Bactrim DS] 800-160 mg tablet 1 tab PO BID Qty: 26 0RF amoxicillin-pot clavulanate 875-125 mg tablet 1 tab PO BID Qty: 26 0RF Referrals / Follow Up: Aubrey Lopez, MECHANIC SENIOR-C [Primary Care Provider] - Disposition Disposition (needs filled in before D/C Order can be placed): Home Health Service 09/12/242041 Cosigner Signature (if applicable): CC: Dr. Qamar Smith MD; Aubrey CURIEL NP-C Jessica~ Signed ADDENDUM by Dr. Qamar Smith MD on 09/13/24 at 1436 Addendum 09/11/2024 Mild abdominal pain after eating. 09/12/2024 Moderate abdominal pain after eating. 09/13/2024 Post prandial abdominal pain persists. 09/13/2024 CT abdomen/pelvis: IMPRESSION: 1. Interval decrease in the inflammatory reaction surrounding the cecum and terminal ileum. There is no residual thickening of the cecal wall. The ileocecal valve and terminal ileum are unremarkable. Thereis residual dilatation of the mesenteric small bowel without obstruction. 2. The gallbladder is hydropic measuring 4.6 cm in short axis diameter. This condition was not present previously. 3. There is free fluid in the abdomen not present previously. 4. Other findings as noted. 09/13/2024 Ultrasound gallbladder done, results pending. I spoke with patient regarding her results, that she may have gallstone obstructing her gallbladder. She had been doing well with therapy and was planning on discharging home 09/14/2024. We discussed she may need cholecystostomy tube or eventual cholecystectomy, she would prefer to return to [facility] for care, vital signs stable. Discharge to [facility] Emergency Department 09/13/2024, for evaluation, admission to hospital. 09/13/24 1436 Cosigner Signature (if applicable): cc: Dr. Qamar Smith MD; Aubrey Lopez ~* Signed ADDENDUM by Dr. Qamar Smith MD on 09/13/24 at 1501 Addendum Gallbladder ultrasound cancelled due to patient having eaten. 09/13/24 1501 Cosigner Signature (if applicable): cc: Dr. Qamar Smith MD; [facility] MECHANIC SENIOR-C Jessica ~* Signed [facility]06-20-2025 Telephone encounter Note* Telephone Encounter - Brittany Mariscal - 09/13/2024 2:20 PM EDT Patient called and left a message regarding post operative Exploratory laparotomy Extensive lysis of adhesions >1 hour Resection of right retroperitoneal mass 7 cm Right salpingo-oophorectomy Resection of right femoral nerve Exposure of right iliac artery Primary repair of right iliac vein (involved by tumor) Small bowel resection (including previous anastomosis) and end-to-side hand-sewn single layer ileocolic anastomosis and concerns regarding having a possible gallbladder problem return call to [phone] [facility] Work Phone: 1(641) 269-798306-20-2025 Radiology Diagnostic study note [facility] Imaging Services [address] [place] [address] [id number] Abdomen/Pelvis WITH Contrast MR#: [id number] Acct: [id number] Name: LAKESHA KOCH Rep #: [id number] : 1960 F 64 From: Ray Rawls MD PCP: Aubrey Lopez [facility] MECHANIC SENIORMathewC Status: REG CLI Study:Abdomen/Pelvis WITH Contrast Date of Ex am: 09/13/24 Exam# [id number] Ordering Dr: Qamar Smith MD PROCEDURE: ABDOMEN/PELVIS WITH CONTRAST 09/13/2024 REASON FOR EXAM: POST SURGICAL ABD PAIN History of colon cancer status post colon and small bowel resection, ureteral stent, right salpingo-oophorectomy, appendectomy and lysis of adhesions. TECHNIQUE: ABDOMEN/PELVIS WITH CONTRAST. Coronal and Sagittal reconstruction series were provided. CONTRAST: Isovue 370 VOLUME: 74 mL One or more dose reduction techniques were used (e.g., Automated exposure control, adjustment of the mA and/or kV according to patient size, use of iterative reconstruction technique. RADIATION DOSE SUMMARY: CTDlvol: 13.28 mGy DLP: 204.34 mGycm COMPARISON: CT abdomen and pelvis with IV contrast, 12/11/2019 FINDINGS: Lung bases: The lung bases are clear. There are no pleural effusions. The heart size is normal. There is a minimal pericardial effusion. There is no calcific vascular disease of the coronary arteries evident. Liver: Normal. Gallbladder: The gallbladder is hydropic measuring 4.6 cm in short axis diameter. No gallstones areidentified. There is no intra or extrahepatic biliary ductal dilatation. Spleen: Normal. Pancreas: Normal. Adrenals: Normal. Kidneys: There is a cortical scar in the upper pole of the right kidney. There is an associated calyceal diverticulum. There is a small cortical cyst in the lower pole cortex of the right kidney. There is a cortical cyst in theinterpolar cortex of the left kidney. Bladder: Normal unenhanced appearance. Reproductive Organs: Status post right oophorectomy. The uterus and left ovary are unremarkable. There is no pelvic or inguinal lymphadenopathy. Bowel: There is circumferential thickening of the wall of the distal esophagus consistent with esophagitis. There is oral contrast in the distal esophagus consistent with gastroesophageal reflux. Therehas been interval decrease in the thickening of the wall of the cecum and decrease in the soft tissue within the surrounding fat. The terminal ileum and ileocecal valve appear unremarkable. There is residual dilatation of the small bowel and some of the loops remain abnormally dilated. Appendix: Surgically absent. Lymph nodes: There is no significant mesenteric or retroperitoneal lymphadenopathy. Vasculature: There is minimal calcific vascular disease of the abdominal aorta. The inferior vena cava and portal venous system are normal. Peritoneum / Retroperitoneum: There is free fluid in the right perihepatic spacein the mesentery and in the pelvis. There is diffuse stranding of the mesenteric fat. Bones: There is a large Schmorl's node in the superior endplate of L2. There ismild multilevel degenerative disc disease of the lumbar spine. There is moderate levoscoliosis of the thoracolumbar spine. CT/Abdomen/Pelvis WITH Contrast IMPRESSION: 1. Interval decrease in the inflammatory reaction surrounding the cecum and terminal ileum. There is no residual thickening of the cecal wall. The ileocecal valve and terminal ileum are unremarkable. Thereis residual dilatation of the mesenteric small bowel without obstruction. 2. The gallbladder is hydropic measuring 4.6 cm in short axis diameter. This condition was not present previously. 3. There is free fluid in the abdomen not present previously. 4. Other findings as noted. Reading Location: [facility] CC: Dr. Qamar Smith MD; Aubrey CURIEL MECHANIC SENIORNeptali Lopez ~ Healthcare Translator: Signed [facility] Work Phone: 1(649) 844-828506-19-2025 [facility] Medical Records Department [address] [place] [address] Discharge Summary 09/12/242028 MR#: [id number] Acct: [id number] Name: LAKESHA KOCH Rep #: [id number] : 1960 64 From: Qamar Smith MD PCP: Aubrey Lopez Status:ADM IN Location: [place] [id number]- Providers Date of Admission: 09/04/24 Primary Care Physician: VEENA Kothari, MECHANIC SENIOR-C Reason For Visit: ABD PAIN; STAGE 2 CEALCAL ADENOCARCINOMA Diagnosis Discharge Diagnosis (1) Debility: Status: Acute Code(s): R53.81 - Other malaise (2) Colon cancer: Status: Acute Code(s): C18.9 - Malignant neoplasm of colon, unspecified (3) Seizure disorder: Status: Acute Code(s): G40.909 - Epilepsy, unspecified, not intractable, without status epilepticus (4) Osteoporosis: Status: Acute Code(s): M81.0 - Age-related osteoporosis without current pathological fracture (5) Anxiety: Status: Acute Code(s): F41.9 - Anxiety disorder, unspecified (6) GERD (gastroesophageal reflux disease): Status: Acute Code(s): K21.9 - Gastro-esophageal reflux disease without esophagitis (7) Hypokalemia: Status: Resolved Code(s): E87.6 - Hypokalemia (8) Depression: Status: Acute Code(s): F32.9 - Major depressive disorder, single episode, unspecified Plan 64 year old female with recurrent cecal colon cancer underwent exploratory laparotomy, extensive adhesiolysis, retroperitoneal mass resection with en block resection of right fallopian tube, right oophorectomy, small bowel resection with revision of iliac colic anastomosis, ureteral stent placement, and femoral nerve ligation 08/28/2024, postoperative course complicated by anemia, pain, nausea/vomiting, admitted to TCU with debility, here for rehabilitation, strengthening, prior to discharge home alone. * Debility - PT/OT. * Pain - Tylenol 1000mg q8, Lidoderm 2 patches td daily, Dilaudid 4mg q4 prn pain (6-10), consider consulting pain management. * Bowel - Miralax 17gm daily prn, Senna/colace 1 tablet bid. * Adult immunization - Administer pneumonia vaccine, covid vaccine, flu vaccine as appropriate. * DVT prophylaxis - Lovenox 30mg sc daily. * Osteoporosis - Alendronate 70mg qweek. * Seizure disorder - Depakote ER 500mg bid. * Neuropathic pain - Gabapentin 100mg qhs. * Muscle spasm - Robaxin 750mg q8. * Nausea - Zofran odt 4mg q8 prn. The following psychotropic medication was present on admission: Buspar 7.5mg daily. Psychotropic medication therapy is indicated for a diagnosis of: Anxiety. Based on my clinical evaluation, continuation of the medication is necessary at this time. Gradual dose reduction plan (select one): ____ GDR will be attempted. Will monitor patient symptoms and behaviors in response to GDR. __x__ GRD contraindicated. 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 The following psychotropic medication was present on admission: Sertraline 50mg daily. Psychotropic medication therapy is indicated for a diagnosis of: Depression. Based on my clinical evaluation, continuation of the medication is necessary at this time. Gradual dose reduction plan (select one): ____ GDR will be attempted. Will monitor patient symptoms and behaviors in response to GDR. __x__ GRD contraindicated. Reason contraindicated: stable chronic fpc use. Medications at Discharge Home Medications alendronate 70 mg tablet 70 mg PO QWEEK [facility] 10/18/23 buspirone 7.5 mg tablet 7.5 mg PO DAILY Mood 10/18/23 sertraline 50 mg tablet 50 mg PO DAILY Mood 10/18/23 acetaminophen 500 mg tablet 1,000 mg (2 x 500 mg) PO Q8 #0 tabs 09/12/24 gabapentin 100 mg capsule 100 mg PO QHS 30 days #30 caps 09/12/24 hydromorphone 2 mg tablet 2 - 4 mg (1 - 2 x 2 mg) PO Q4H PRN PRN PAIN 6-10 7 days #42 tabs 09/12/24 hydroxyzine pamoate 25 mg capsule 50 mg (2 x 25 mg) PO TID PRN PRN Itching 30 days #90 caps 09/12/24 lidocaine 5 % topical patch 2 patch topical DAILY 30 days #60 ea 09/12/24 methocarbamol 750 mg tablet 750 mg PO Q8 30 days #90 tabs 09/12/24 ondansetron 4 mg disintegrating tablet 4 mg PO Q8H PRN PRN Nausea 30 days #90 tabs 09/12/24 Hospital Course Operations - (See below.) Procedures None Summary of Care Provided Minutes Spent on Discharge: 35 Hospital Course: 64 year old female with recurrent cecal colon cancer underwent exploratory laparotomy, extensive adhesiolysis, retroperitoneal mass resection with en block resection of right fallopian tube, right oophorectomy, small bowel resection with revision of iliac colic anastomosis, ureteral stent placement, and femoral nerve ligation 08/28/2024, postoperative course complicated by anemia, pain, nausea/vomiting, admitted to TCU with debility, here for rehabilitation, strengthening, prior to discharge home alone. Discharge home alone 09/15/2024, [facility] PT, pending acceptance. Physical Exam (more content not included)...[facility]06-16-2025 History and physical note Author Qamar Smith [facility] Note Date/Time September 09, 2024 4:22 pm [facility] Medical Records Department [address] [place] [address] History & Physical Exam 09/04/242118 MR#: [id number] Acct: [id number] Name: LAKESHA KOCH Rep #:[id number] : 1960 64 From: Qamar Smith MD PCP: Aubrey Lopez MECHANIC SENIOR-C Status:ADM IN Location: [place] [address] HPI - General General Date of Admission: 09/04/24 Date of Service: 09/04/24 Chief Complaint: Here for rehabilitation. HPI Narrative LAKESHA KOCH, is a 64 Female who presents with followin08/28/2024 Admit to [facility]. Lakesha has past medical history notable for epilepsy, failure to thrive, low BMI, cecal adenocarcinoma (s/p laparoscopic ileocecectomy 01/03/24) complicated by local recurrence (s/p adjuvant capecitabine), s/p exploratory laparotomy, extensive adhesiolysis, retroperitoneal mass resection with en block resection of right fallopian tube, right oophorectomy, small bowel resection with revisionof iliac colic anastomosis, ureteral stent placement, and femoral nerve ligation08/28/2024. Overall, patient progressing fairly well however does have notable postoperativepain and expected femoral nerve deficits. Pain management was consulted to assist management of postoperative pain. Patient with hemoglobin drift 7.1 on 08/30/2024, transfused 2 units PRBC and incremented appropriately. NG tube and car was removed 08/30/2024 and patient with signs of return of bowel function on 08/31/2024, advanced to GI soft diet, oralized pain medications 09/01/2024. Patientwitn nausea/vomiting on night of 09/02/2024, and backed down to NPO, 09/03/2024 KUBshowed mildly dilated loops of bowel. Her diet was advanced to clears and subsequently to GI soft with Remeron added for appetite stimulation. She was skilled for SNF for additional rehabilitation and discharged. 09/04/2024 Admit to TCU with debility, here for rehabilitation, strengthening, prior to discharge home alone. [facility] Medical History (Updated 09/04/24 @ 21:[address] Qamar Smith MD) Seizure disorder Hypotension Marijuana abuse Alcohol dependence ETOH abuse IBS (irritable bowel syndrome) Anxiety Depression Seizure Home Medications ?Medication ?Instructions ?Recorded ?Last Taken ?Type clonazepam 0.25 mg disintegrating 0.25 mg PO PRN PRN S eizudavion 10/10/19 Unknown History tablet lacosamide 100 mg tablet 100 mg PO BID #60 tabs 08/2410/18/23 Rx acetaminophen 500 mg capsule 500 - 1,000 mg PO Q6H Daiana n 10/18/23 09/04/24 06:35 History alendronate 70 mg tablet 70 mg PO QWEEK [facility] 0 10/18/23 Unknown History buspirone 7.5 mg tablet 7.5 mg PO DAILY Mood 4 09/04/24 08:50 History calcium polycarbophil 625 mg 625 mg PO BID 10/18/23 History tablet (Fiber Laxative (calcium polycarbophil)) divalproex 500 mg tablet,extended 500 mg PO BID Epiles y 10/18/23 09/02/24 Histo ry release 24 hr fluconazole 200 mg tablet 200 mg PO X1 #2 tabs 4 Unknown Rx (Diflucan) pantoprazole 40 mg tablet,delayed 40 mg PO DAILY 10/1710/18/23 History release potassium chloride 20 mEq 20 meq PO DAILY 10/18/23 History tablet,extended release(part/cryst) sennosides 8.6 mg tablet (senna) 8.6 mg PO BID 4 10/18/23 History sertraline 50 mg tablet 50 mg PO DAILY Mood 10/18/23 09/04/24 08:50 History amoxicillin 875 mg-potassium 1 tab PO BID #26 tabs Unknown Rx clavulanate 125 mg tablet sulfamethoxazole 800 1 tab PO BID #26 tabs Unknown Rx mg-trimethoprim 160 mg tablet (Bactrim DS) ondansetron 4 mg disintegrating 4 mg PO Q6H PRN nausea and 04/08/24 Unknown Rx tablet vomiting #15 tabs ondansetron 4 mg disintegrating 4 mg PO Q8H PRN PRN Na usea #10 tabs 07/11/24 Unknown Rx tablet enoxaparin 30 mg/0.3 mL 30 mg subcut Q24H DVT Prophy laxis 09/04/24 Unknown History subcutaneous syringe gabapentin 100 mg capsule 100 mg PO QHS Nerve Pain 02/1809/04/24 06:35 History hydromorphone 2 mg tablet 1 - 2 mg PO Q4H PRN pain (sc [place] 09/04/24 09/04/24 08:45 History score 7-10) lidocaine 4 % topical patch 2 patch topical DAILY Pain 09/04/24 Unknown History (Lidocaine Pain Relief) methocarbamol 500 mg tablet 750 mg PO Q8H muscle spasm 09/04/24 09/04/24 08:45 History polyethylene glycol 3350 17 17 g PO DAILY PRN constipa tion 09/04/24 Unknown History gram/dose oral powder sennosides 8.6 mg-docusate sodium 1 tab-cap PO BID Con stipation 09/04/24 Unknown History 50 mg tablet (Senna Plus) Allergy/AdvReac Type Severity Reaction Status Date / Time erythromycin base Allergy TONGUE Verified 04/08/24 14:38 PEELS Family History Sister Melanoma Father Prostate CA Surgical History (Updated 09/04/24 @ 21:[address] Qamar Smith MD) History of placement of ureteral stent History of resection of small bowel History of right salpingo-oophorectomy History of lysis of adhesions History of exploratory laparotomy 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 Social History household members: none housing: apartment Smoking Status: Former smoker alcohol intake: former year quit: 2020 substance use type: marijuana ROS Constitutional Constitutional: Reports weakness; Denies chills, fever(s) or weight gain ENT HEENT: Denies headache(s), nasal congestion or nasal discharge Cardiovascular Cardiovascular: Denies chest pain or palpitations Respiratory/Chest Respiratory/Chest: Denies cough, excessive phlegm production or shortness of breath with exertion Gastrointestinal Gastrointestinal: Denies abdominal pain, nausea or vomiting Genitourinary Genitourinary: Denies dysuria Musculoskeletal Musculoskeletal: Denies joint pain or joint swelling Integumentary Integumentary: Denies rash or wounds Neurologic Neurologic: Denies focal weakness, numbness or tingling Psychiatric Psychiatric: Denies anxiety, auditory hallucinations, depression, homicidal ideation or suicidal ideation Vital Signs Vital Signs Vital Signs: 09/04/24 15:40 09/04/24 15:41 Temperature 98.2 F Temperature Source Temporal Pulse Rate 98 Pulse Rhythm Regular Pulse Strength Normal (2+) Respiratory Rate 16 Respiratory Effort Normal Non-Labored Respiratory Depth Normal Respiratory Pattern Normal Blood Pressure 92/59 L Blood Pressure Mean 70 Blood Pressure Source Monitor Blood Pressure Position Sitting Blood Pressure Location Right Arm Pulse Ox 96 Oxygen Delivery Method Room Air Room Air Weight Weight: 40.959 kg Body Mass Index (BMI) 15.5 Physical Exam Const alert General Appearance: cooperative HEENT normocephalic Eyes PERRL and EOMs intact bilaterally Neck supple, no JVD and no carotid bruits Resp normal respiratory effort, normal air movement and clear to auscultation bilaterally Cardio regular rate and regular rhythm GI normal to inspection, nondistended, normoactive bowel sounds, non-tender and non-distended GI Narrative: Midline abdominal incision healed. Extremity normal capillary refill General Extremity: Negative for edema Skin no rashes or lesions noted General Skin Exam: no breakdown Neuro Neuro Narrative: Right lower extremity weakness. Psych affect normal Appearance: appropriate Assessment & Plan Assessment/Plan (1) Debility: (2) Colon cancer: (3) Seizure disorder: (4) Osteoporosis: (5) Anxiety: (6) GERD (gastroesophageal reflux disease): (7) Hypokalemia: (8) Depression: PLAN: Plan 64 year old female with recurrent cecal colon cancer underwent exploratory laparotomy, extensive adhesiolysis, retroperitoneal mass resection with en blockresection of right fallopian tube, right oophorectomy, small bowel resection with revision of iliac colic anastomosis, ureteral stent placement, and femoral nerve ligation 08/28/2024, postoperative course complicated by anemia, pain, nausea/vomiting, admitted to TCU with debility, here for rehabilitation, strengthening, prior to discharge home alone. * Debility - PT/OT. * Pain - Tylenol 1000mg q8, Lidoderm 2 patches td daily, Dilaudid 4mg q4 prn pain (6-10), consider consulting pain management. * Bowel - Miralax 17gm daily prn, Senna/colace 1 tablet bid. * Adult immunization - Administer pneumonia vaccine, covid vaccine, flu vaccine as appropriate. * DVT prophylaxis - Lovenox 30mg sc daily. * Osteoporosis - Alendronate 70mg qweek. * Seizure disorder - Depakote ER 500mg bid. * Neuropathic pain - Gabapentin 100mg qhs. * Muscle spasm - Robaxin 750mg q8. * Nausea - Zofran odt 4mg q8 prn. The following psychotropic medication was present on admission: Buspar 7.5mg daily. Psychotropic medication therapy is indicated for a diagnosis of: Anxiety. Based on my clinical evaluation, continuation of the medication is necessary at this time. Gradual dose reduction plan (select one): ____ GDR will be attempted. Will monitor patient symptoms and behaviors in response to GDR. __x__ GRD contraindicated. 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 The following psychotropic medication was present on admission: Sertraline 50mg daily. Psychotropic medication therapy is indicated for a diagnosis of: Depression. Based on my clinical evaluation, continuation of the medication is necessary at this time. Gradual dose reduction plan (select one): ____ GDR will be attempted. Will monitor patient symptoms and behaviors in response to GDR. __x__ GRD contraindicated. Reason contraindicated: stable chronic fpc use. 09/04/242202 <Electronically signed by Qamar Smith MD> Cosigner Signature (if applicable): CC: Dr. Qamar Smith MD; [place] [facility] DAVID-C Beam~ Signed ADDENDUM by Dr. Qamar Smith MD on 09/05/24 at 0735 Addendum Seizure disorder - Resident refused Depakote ER 500mg bid, she states she has not taken for 2 months, she does see Dr. Gil Hylton, [place]rolog[place] [facility] She informed me her seizures are hemalatha vu, hot flash, lasts 2 minutes, goes away,she does not lose consciousness, no tonic-clonic activity. Will stop Depakote, resident aware of risks. 09/05/24 0735<Electronically signed by Qamar Smith MD> Cosigner Signature (if applicable): cc: Dr. Qamar Smith MD; [place] [facility] MECHANIC SENIOR-C Beam ~* Signed ADDENDUM by Dr. Qamar Smith MD on 09/09/24 at 1622 Addendum Allergic dermatitis - Abdominal incision, tape removed, DSD daily, HC 2.5% creamnot helpful, add Medrol dose pack, Hydroxyzine 50mg tid prn itching. 09/09/24 162<Electronically signed by Qamar Smith MD> Cosigner Signature (if applicable): cc: Dr. Qamar Smith MD; [place] [facility] MECHANIC SENIOR-C Beam ~* Signed [facility] Work Phone: 1(872) 108-431606-16-2025 [facility] [address] [place] [address] History & Physical Exam 09/04/242118 MR#: [id number] Acct: [id number] Name: LAKESHA KOCH Rep #:[id number] : 1960 64 From: Qamar Smith MD PCP: Aubrey Lopez MECHANIC SENIOR-C Status:ADM IN Location: [place] [address] HPI - General General Date of Admission: 09/04/24 Date of Service: 09/04/24 Chief Complaint: Here for rehabilitation. HPI Narrative LAKESHA KOCH, is a 64 Female who presents with followin08/28/2024 Admit to [facility]. Lakesha has past medical history notable for epilepsy, failure to thrive, low BMI, cecal adenocarcinoma (s/p laparoscopic ileocecectomy 01/03/24) complicated by local recurrence (s/p adjuvant capecitabine), s/p exploratory laparotomy, extensive adhesiolysis, retroperitoneal mass resection with en block resection of right fallopian tube, right oophorectomy, small bowel resection with revisionof iliac colic anastomosis, ureteral stent placement, and femoral nerve ligation08/28/2024. Overall, patient progressing fairly well however does have notable postoperativepain and expected femoral nerve deficits. Pain management was consulted to assist management of postoperative pain. Patient with hemoglobin drift 7.1 on 08/30/2024, transfused 2 units PRBC and incremented appropriately. NG tube and car was removed 08/30/2024 and patient with signs of return of bowel function on 08/31/2024, advanced to GI soft diet, oralized pain medications 09/01/2024. Patientwitn nausea/vomiting on nightof 09/02/2024, and backed down to NPO, 09/03/2024 KUBshowed mildly dilated loops of bowel. Her diet was advanced to clears and subsequently to GI soft with Remeron added for appetite stimulation. She was skilled for SNF for additional rehabilitation and discharged. 09/04/2024 Admit to TCU with debility, here for rehabilitation, strengthening, prior to discharge home alone. [facility] Medical History (Updated 09/04/24 @ 21:[address] Qamar Smith MD) Seizure disorder Hypotension Marijuana abuse Alcohol dependence ETOH abuse IBS (irritable bowel syndrome) Anxiety Depression Seizure Home Medications ?Medication ?Instructions ?Recorded ?Last Taken ?Type clonazepam 0.25 mg disintegrating 0.25 mg PO PRN PRN S eizures 10/10/19 Unknown History tablet lacosamide 100 mg tablet 100 mg PO BID #60 tabs 08/2410/18/23 Rx acetaminophen 500 mg capsule 500 - 1,000 mg PO Q6H Daiana n 10/18/23 09/04/24 06:35 History alendronate 70 mg tablet 70 mg PO QWEEK Bone Health 0 10/18/23 Unknown History buspirone 7.5 mg tablet 7.5 mg PO DAILY Mood 4 09/04/24 08:50 History calcium polycarbophil 625 mg 625 mg PO BID 10/18/23 History tablet (Fiber Laxative (calcium polycarbophil)) divalproex 500 mg tablet,extended 500 mg PO BID Epiles y 10/18/23 09/02/24 Histo ry release 24 hr fluconazole 200 mg tablet 200 mg PO X1 #2 tabs 4 Unknown Rx (Diflucan) pantoprazole 40 mg tablet,delayed 40 mg PO DAILY 10/1710/18/23 History release potassium chloride 20 mEq 20 meq PO DAILY 10/18/23 History tablet,extended release(part/cryst) sennosides 8.6 mg tablet (senna) 8.6 mg PO BID 4 10/18/23 History sertraline 50 mg tablet 50 mg PO DAILY Mood 10/18/23 09/04/24 08:50 History amoxicillin 875 mg-potassium 1 tab PO BID #26 tabs Unknown Rx clavulanate 125 mg tablet sulfamethoxazole 800 1 tab PO BID #26 tabs Unknown Rx mg-trimethoprim 160 mg tablet (Bactrim DS) ondansetron 4 mg disintegrating 4 mg PO Q6H PRN nausea and 04/08/24 Unknown Rx tablet vomiting #15 tabs ondansetron 4 mg disintegrating 4 mg PO Q8H PRN PRN Na usea #10 tabs 07/11/24 Unknown Rx tablet enoxaparin 30 mg/0.3 mL 30 mg subcut Q24H DVT Prophy laxis 09/04/24 Unknown History subcutaneous syringe gabapentin 100 mg capsule 100 mg PO QHS Nerve Pain 02/1809/04/24 06:35 History hydromorphone 2 mg tablet 1 - 2 mg PO Q4H PRN pain (sc [place] 09/04/24 09/04/24 08:45 History score 7-10) lidocaine 4 % topical patch 2 patch topical DAILY Pain 09/04/24 Unknown History (Lidocaine Pain Relief) methocarbamol 500 mg tablet 750 mg PO Q8H muscle spasm 09/04/24 09/04/24 08:45 History polyethylene glycol 3350 17 17 g PO DAILY PRN constipa tion 09/04/24 Unknown History gram/dose oral powder sennosides 8.6 mg-docusate sodium 1 tab-cap PO BID Con stipation 09/04/24 Unknown History 50 mg tablet (Senna Plus) Allergy/AdvReac Type Severity Reaction Status Date / Time erythromycin base Allergy TONGUE Verified 04/08/24 14:38 PEELS Family History Sister Melanoma Father Prostate CA Surgical History (Updated 09/04/24 @ 21:[address] Qamar Smith MD) History of placement of ureteral stent History of resection of small bowel History of right salpingo-oophorectomy History of lysis of adhesions History of exploratory laparotomy 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 Social History household members: none housing: apartment Smoking Status: Former smoker alcohol intake: former year quit: 2020 substance use type: marijuana ROS Constitutional Constitutional: Reports weakness; Denies chills, fever(s) or weight gain ENT HEENT: Denies headache(s), nasal congestion or nasal discharge Cardiovascular Cardiovascular: Denies chest pain or palpitations Respiratory/Chest Respiratory/Chest: Denies cough, excessive phlegm production or shortness of breath with exertion Gastrointestinal Gastrointestinal: Denies abdominal pain, nausea or vomiting Genitourinary Genitourinary: Denies dysuria Musculoskeletal Musculoskeletal: Denies joint pain or joint swelling Integumentary Integumentary: Denies rash or wounds Neurologic Neurologic: Denies focal weakness, numbness or tingling Psychiatric Psychiatric: Denies anxiety, auditory hallucinations, depression, homicidal ideation or suicidal ideation Vital Signs Vital Signs Vital Signs: 09/04/24 15:40 09/04/24 15:41 Temperature 98.2 F Temperature Source Temporal Pulse Rate 98 Pulse Rhythm Regular Pulse Strength Normal (2+) Respiratory Rate 16 Respiratory Effort Normal Non-Labored Respiratory Depth Normal Respiratory Pattern Normal Blood Pressure 92/59 L Blood Pressure Mean 70 Blood Pressure Source Monitor Blood Pressure Position Sitting Blood Pressure Location Right Arm Pulse Ox 96 Oxygen Delivery Method Room Air Room Air Weight Weight: 40.959 kg Body Mass Index (BMI) 15.5 Physical Exam Const alert General Appearance: cooperative HEENT normocephalic Eyes PERRL and EOMs intact bilaterally Neck supple, no JVD and no carotid bruits Resp normal respiratory effort, normal air movement and clear to auscultation bilaterally Cardio regular rate and regular rhythm GI normal to inspection, nondistended, normoactive bowel sounds, non-tender and non-distended GI Narrative: Midline abdominal incision healed. Extremity normal capillary refill General Extremity: Negative for edema Skin no rashes or lesions noted General Skin Exam: no breakdown Neuro Neuro Narrative: Right lower extremity weakness. Psych affect normal Appearance: appropriate Assessment & Plan Assessment/Plan (1) Debility: (2) Colon cancer: (3) Seizure disorder: (4) Osteoporosis: (5) Anxiety: (6) GERD (gastroesophageal reflux disease): (7) Hypokalemia: (8) Depression: PLAN: Plan 64 year old female with recurrent cecal colon cancer underwent exploratory laparotomy, extensive adhesiolysis, retroperitoneal mass resection with en blockresection of right fallopian tube, right oophorectomy, small bowel resection with revision of iliac colic anastomosis, ureteral stent placement,and femoral nerve ligation 08/28/2024, postoperative course complicated by anemia, pain, nausea/vomiting, admitted to TCU with debility, here for rehabilitation, strengthening, prior to discharge home alone. * Debility - PT/OT. * Pain - Tylenol 1000mg q8, Lidoderm 2 patches td daily, Dilaudid 4mg q4 prn pain (6-10), consider consulting pain management. * Bowel - Miralax 17gm daily prn, Senna/colace 1 tablet bid. * Adult immunization - Administer pneumonia vaccine, covid vaccine, flu vaccine as appropriate. * DVT prophylaxis - Lovenox 30mg sc daily. * Osteoporosis - Alendronate 70mg qweek. * Seizure disorder - Depakote ER 500mg bid. * Neuropathic pain - Gabapentin 100mg qhs. * Muscle spasm - Robaxin 750mg q8. * Nausea - Zofran odt 4mg q8 prn. The following psychotropic medication was present on admission: Buspar 7.5mg daily. Psychotropic medication therapy is indicated for a diagnosis of: Anxiety. Based on my clinical evaluation, continuation of the medication is necessary at this time. Gradual dose reduction plan (select one): ____ GDR will be attempted. Will monitor patient symptoms and behaviors in response to GDR. __x__ GRD contraindicated. Reason contraindicated: stable chronic fpc use. The following psychotropic medication was present on admission: Sertraline 50mg daily. Psychotropic medication therapy is indicated for a diagnosis of: Depression. Based on my clinical evaluation, continuation of the medication is necessary at this time. Gradual dose reduction plan (select one): ____ GDR will be attempted. Will monitor patient symptoms and behaviors in response to GDR. __x__ GRD contraindicated. Reason contraindicated: stable chronic fpc use. 09/04/24 2203 Cosigner Signature (if applicable): CC: Dr. Qamar Smith MD; Freddiechico Tana Lopez~ Signed ADDENDUM by Dr. Qamar Smith MD on 09/05/24 at 0735 Addendum Seizure disorder - Resident refused Depakote ER 500mg bid, she states she has not taken for 2 months, she does see Dr. Gil Hylton, [place] [facility] [place] informed me her seizures are hemalatha vu, hot flash, lasts 2 minutes, goes away,she does not lose consciousness, no tonic-clonic activity. Will stop Depakote, resident aware of risks. 09/05/24 0735 Cosigner Signature (if applicable): cc: Dr. Qamar Smith MD; Aubrey Tana Lopez ~* Signed ADDENDUM by Dr. Qamar Smith MD on 09/09/24 at 1622 Addendum Allergic dermatitis - Abdominal incision, tape removed, DSD daily, HC 2.5% creamnot helpful, add Medrol dose pack, Hydroxyzine 50mg tid prn itching. 09/09/24 1622 Cosigner Signature (if applicable): cc: Dr. Qamar Smith MD; Aubrey CURIEL MECHANIC SENIOR-C Jessica ~* Signed [facility]06-12-2025 Progress note Author Keri Michel [facility] Note Date/Time September 05, 2024 5:24 pm [facility] Medical Records Department [address] [place] [address] Progress Note - Pharmacy 09/05/24 9703 MR#: [id number] Acct: [id number] Name: LAKESHA KOCH Rep #:[id number] : 1960 64 From: Keri Michel PCP: Aubrey Lopez MECHANIC SENIORNeptali Status:ADM IN Location: TCU [facility] Documented by User: Keri Michel 09/05/24 17:22 TCU RX Drug Regimen Review Subjective/Objective Subjective/Objective Subjective: 64 YOF admitted to TCU 09/04/24 s/p hospitalization at an outside facility for exploratory laparotomy resulting in several procedures on 08/28. Patient's hospitalization was also complicated by the need for GT placement withdecreased bowel function and appetite. Patient admitted to TCU for strengtheningand rehabilitation prior to discharge home where she resides alone. Objective: Allergies erythromycin base Allergy (Verified 04/08/24 14:38) TONGUE PEELS Current Medications Generic Name Dose Route Start Last Admin Trade Name Freq PRN Reason Stop Dose Admin Acetaminophen 1,000 mg 09/04/24 22:00 09/05/24 14:22 Acetaminophen 500 Mg Tablet PO 1,000 mg Q8 ART Administration Alendronate Sodium 70 mg 09/07/24 10:00 Alendronate Sodium 70 Mg Tablet PO Sa ART Buspirone HCl 7.5 mg 09/05/24 10:00 09/05/24 10:12 Buspirone 15 Mg Tablet PO 7.5 mg DAILY ART Administration Enoxaparin Sodium 30 mg 09/05/24 10:00 09/05/24 10:13 Enoxaparin 30 Mg/0.3 Ml Syringe SC 10/02/24 10:01 30 mg DAILY ART Administration Gabapentin 100 mg 09/04/24 22:00 09/04/24 21:40 Gabapentin 100 Mg Capsule PO 10/04/24 22:01 100 mg QHS ART Administration Hydromorphone HCl 4 mg 09/04/24 20:23 09/05/24 12:50 Hydromorphone 2 Mg Tablet PO 09/11/24 16:05 2 mg Q4H PRN Administration PAIN 6-10 Lidocaine 2 patch 09/05/24 10:00 09/05/24 10:13 Lidocaine 5% Patch TOPICAL 2 patch DAILY ART Administration Methocarbamol 750 mg 09/04/24 22:00 09/05/24 14:22 Methocarbamol 750 Mg Tablet PO 750 mg Q8 ART Administration Ondansetron HCl 4 mg 09/04/24 16:09 Ondansetron Odt 4 Mg Tablet PO Q8H PRN PRN Nausea Polyethylene Glycol 17 gm 09/04/24 16:34 Polyethylene Glycol 3350 17 Gm Packet PO DAILY PRN constipation Senna/Docusate Sodium 1 tablet 09/04/24 22:00 09/05/24 10:14 Senna/Docusate Sodium 1 Tablet PO Not Given BID ART Sertraline HCl 50 mg 09/05/24 10:00 09/05/24 10:14 Sertraline 50 Mg Tablet PO 50 mg DAILY ART Administration Tuberculin PPD 0.1 ml 09/12/24 10:00 Tuberculin,Purif.Prot.Deriv. 50 Tu/Ml Vial ID 09/12/24 10:01 X1 ONE Problem List Depression (Acute) GERD (gastroesophageal reflux disease) (Acute) Anxiety (Acute) Osteoporosis (Acute) Seizure disorder (Acute) Colon cancer (Acute) Debility (Acute) Vital Signs Temp Pulse Resp BP Pulse Ox O2 Del Method 97.2 F L 103 H 17 95/69 97 Room Air 09/05/24 10:09 09/05/24 10:09 09/05/24 10:09 09/05/24 10:09 09/05/24 10:09 09/05/24 10:09 Oxygen Delivery Method Room Air Weight: 40 kg Body Mass Index (BMI) 15.5 Sodium 139 mmol/L (133-145) 09/05/24 05:10 Potassium 4.1 mmol/L (3.3-5.1) 09/05/24 05:10 Chloride 102 mmol/L (98-108) 09/05/24 05:10 Carbon Dioxide 24.8 mmol/L (21.0-32.0) 09/05/24 05:10 Anion Gap 13 (5-15) 09/05/24 05:10 BUN 23 mg/dL (4-19) H 09/05/24 05:10 Creatinine 0.52 mg/dL (0.70-1.20) L 09/05/24 05:10 Est GFR (MDRD) Non-Af 103 (>60) 09/05/24 05:10 BUN/Creatinine Ratio 44.4 RATIO (10-20) H 09/05/24 05:10 Glucose 88 mg/dL (70-99) 09/05/24 05:10 Assessment/Plan: 1. Pain: Tylenol 1000mg PO Q8h, Lidocaine patch 2 patches topically daily, Hydromorphone 4mg PO Q4h PRN. Please continue to monitor for constipation/oversedation/respiratory depression with narcotic usage, local siteirritation with lidocaine patches, S/S increased/decreased pain. - The patient has used 3 doses of PRN Dilaudid since admission for pain rated6/10. -It is noted that pain management may be consulted during stay. 2. Muscle Spasm: Robaxin 750mg PO Q8h. Please continue to monitor for drowsiness, dizziness, anticholinergic effect (Beer's list). 3. Neuropathic pain: Gabapentin 100mg PO QHS. Please continue to monitor for oversedation, falls (Beer's list), renal function. 4. Osteoporosis: Fosamax 70mg PO weekly. Please ensure patient takes on an emptystomach first thing in the morning and remains upright for at least 60min post-med administration. Please monitor for abdominal pain, constipation, calcium, and phosphate levels as clinically indicated. 5. Nausea: Zofran 4mg PO Q8h PRN. Please continue to monitor for headache, PRN medication usage, resolution of symptoms. 6. DVT Prophylaxis: Lovenox 30mg SC Daily. Please continue to monitor for S/S bleeding, platelets (last 363 on 09/05), CrCl (45mL/min on 09/05). Patient's CrCl is >30mL/min, please consider increasing Lovenox dose to 40mg SC Daily based on renal function if clinically indicated, thank you. 7. Bowel: Senna/Docusate 1 tab PO BID, Miralax 17g PO Daily PRN. Please continueto monitor for increased/decreased constipation/diarrhea. If diarrhea develops, please discontinue scheduled stool softeners, thank you. - The patient has not had a documented BM since admission (<24hrs ago). If the patient does not have a BM in the next 48-72hrs, please consider giving PRN medications to help facilitate a BM. Assessment/Plan for indications treated with psychotropic medications: 1. Depression: Zoloft 50mg PO Daily. Monitor for diarrhea, nausea, headache, anxiety or drowsiness, suicidal thoughts or behaviors (Boxed Warning), symptomsof bleeding, symptoms of serotonin syndrome (including agitation, confusion, hyperreflexia, rigidity/myoclonus, tremor, tachycardia, tachypnea), sodium levels (last = 139 on 09/05). Monitor for efficacy including resident symptoms, behaviors and indications of distress. Monitor for tolerability including mental status, cognition, excessive sleepiness, withdrawal or decreased participation in activities and decline in physical functioning. Maximize use of nonpharmacologic/behavioral interventions to facilitate dose reduction or discontinuation as appropriate. Please evaluate the appropriateness of GDR unless contraindicated. If appropriate, GDR should be attempted in 2 separate quarters within the first year of use or admission to TCU. If GDR attempted, monitor resident symptoms/behaviors. 2. Anxiety: Buspar 7.5mg PO Daily. Monitor for sedation, mental status and cognition. Monitor for falls (risk factor for falls) and implement fall prevention strategies. Monitor for efficacy including resident symptoms, behaviors and indications of distress. Monitor for tolerability including mental status, cognition, excessive sleepiness, withdrawal or decreased participation in activities and decline in physical functioning. Maximize use of nonpharmacologic/behavioral interventions to facilitate dose reduction or discontinuation as appropriate. Please evaluate the appropriateness of GDR unless contraindicated. If appropriate, GDR should be attempted in 2 separate quarters within the first year of use or admission to TCU. If GDR attempted, monitor resident symptoms/behaviors. Medical chart and medication regimen reviewed. The following medication irregularities or issues were identified: 1. DVT Prophylaxis: Lovenox 30mg SC Daily. Patient's CrCl is >30mL/min (45mL/minon 09/05), please consider increasing Lovenox dose to 40mg SC Daily based on renal function if clinically indicated, thank you. Date Date of Note: 09/05/24 Documented by User: Dr. Qamar Smith MD 09/05/24 17:24 TCU RX Drug Regimen Review Provider Comments Provider responsibility Provider Comments to Recommendations by Pharmacy Agree 09/05/24 1722 <Electronically signed by Keri Michel> Keri Michel Cosigner Signature (if applicable): 09/05/24 172 <Electronically signed by Qamar Smith MD> CC: ~ Signed [facility] Work Phone: 1(935) 503-787706-12-2025 Progress note [facility] Medical Records Department [address] [place] [id number] Progress Note - Pharmacy 09/05/24 1655 MR#: [id number] Acct: [id number] Name: LAKESHA KOCH ILENE Rep #:[id number] : 1960 64 From: Keri Michel PCP: Aubrey Lopez MECHANIC SENIOR-C Status:ADM IN Location: [place] [address] Documented by User: Keri Michel 09/05/24 17:22 TCU RX Drug Regimen Review Subjective/Objective Subjective/Objective Subjective: 64 YOF admitted to TCU 09/04/24 s/p hospitalization at an outside facility for exploratory laparotomy resulting in several procedures on 08/28. Patient's hospitalization was also complicatedby the need for GT placement withdecreased bowel function and appetite. Patient admitted to TCU for strengtheningand rehabilitation prior to discharge home where she resides alone. Objective: Allergies erythromycin base Allergy (Verified 04/08/24 14:38) TONGUE PEELS Current Medications Generic Name Dose Route Start Last Admin Trade Name Freq PRN Reason Stop Dose Admin Acetaminophen 1,000 mg 09/04/24 22:00 09/05/24 14:22 Acetaminophen 500 Mg Tablet PO 1,000 mg Q8 ART Administration Alendronate Sodium 70 mg 09/07/24 10:00 Alendronate Sodium 70 Mg Tablet PO Sa ART Buspirone HCl 7.5 mg 09/05/24 10:00 09/05/24 10:12 Buspirone 15 Mg Tablet PO 7.5 mg DAILY ART Administration Enoxaparin Sodium 30 mg 09/05/24 10:00 09/05/24 10:13 Enoxaparin 30 Mg/0.3 Ml Syringe SC 10/02/24 10:01 30 mg DAILY ART Administration Gabapentin 100 mg 09/04/24 22:00 09/04/24 21:40 Gabapentin 100 Mg Capsule PO 10/04/24 22:01 100 mg QHS ART Administration Hydromorphone HCl 4 mg 09/04/24 20:23 09/05/24 12:50 Hydromorphone 2 Mg Tablet PO 09/11/24 16:05 2 mg Q4H PRN Administration PAIN 6-10 Lidocaine 2 patch 09/05/24 10:00 09/05/24 10:13 Lidocaine 5% Patch TOPICAL 2 patch DAILY ART Administration Methocarbamol 750 mg 09/04/24 22:00 09/05/24 14:22 Methocarbamol 750 Mg Tablet PO 750 mg Q8 ART Administration Ondansetron HCl 4 mg 09/04/24 16:09 Ondansetron Odt 4 Mg Tablet PO Q8H PRN PRN Nausea Polyethylene Glycol 17 gm 09/04/24 16:34 Polyethylene Glycol 3350 17 Gm Packet PO DAILY PRN constipation Senna/Docusate Sodium 1 tablet 09/04/24 22:00 09/05/24 10:14 Senna/Docusate Sodium 1 Tablet PO Not Given BID ART Sertraline HCl 50 mg 09/05/24 10:00 09/05/24 10:14 Sertraline 50 Mg Tablet PO 50 mg DAILY ART Administration Tuberculin PPD 0.1 ml 09/12/24 10:00 Tuberculin,Purif.Prot.Deriv. 50 Tu/Ml Vial ID 09/12/24 10:01 X1 ONE Problem List Depression (Acute) GERD (gastroesophageal reflux disease) (Acute) Anxiety (Acute) Osteoporosis (Acute) Seizure disorder (Acute) Colon cancer (Acute) Debility (Acute) Vital Signs Temp Pulse Resp BP Pulse Ox O2 Del Method 97.2 F L 103 H 17 95/69 97 Room Air 09/05/24 10:09 09/05/24 10:09 09/05/24 10:09 09/05/24 10:09 09/05/24 10:09 09/05/24 10:09 Oxygen Delivery Method Room Air Weight: 40 kg Body Mass Index (BMI) 15.5 Sodium 139 mmol/L (133-145) 09/05/24 05:10 Potassium 4.1 mmol/L (3.3-5.1) 09/05/24 05:10 Chloride 102 mmol/L (98-108) 09/05/24 05:10 Carbon Dioxide 24.8 mmol/L (21.0-32.0) 09/05/24 05:10 Anion Gap 13 (5-15) 09/05/24 05:10 BUN 23 mg/dL (4-19) H 09/05/24 05:10 Creatinine 0.52 mg/dL (0.70-1.20) L 09/05/24 05:10 Est GFR (MDRD) Non-Af 103 (>60) 09/05/24 05:10 BUN/Creatinine Ratio 44.4 RATIO (10-20) H 09/05/24 05:10 Glucose 88 mg/dL (70-99) 09/05/24 05:10 Assessment/Plan: 1. Pain: Tylenol 1000mg PO Q8h, Lidocaine patch 2 patches topically daily, Hydromorphone 4mg PO Q4hPRN. Please continue to monitor for constipation/oversedation/respiratory depression with narcotic usage, local siteirritation with lidocaine patches, S/S increased/decreased pain. - The patient has used 3 doses of PRN Dilaudid since admission for pain rated6/10. -It is noted that pain management may be consulted during stay. 2. Muscle Spasm: Robaxin 750mg PO Q8h. Please continue to monitor for drowsiness, dizziness, anticholinergic effect (Beer's list). 3. Neuropathic pain: Gabapentin 100mg PO QHS. Please continue to monitor for oversedation, falls (Beer's list), renal function. 4. Osteoporosis: Fosamax 70mg PO weekly. Please ensure patient takes on an emptystomach first thingin the morning and remains upright for at least 60min post-med administration. Please monitor for abdominal pain, constipation, calcium, and phosphate levels as clinically indicated. 5. Nausea: Zofran 4mg PO Q8h PRN. Please continue to monitor for headache, PRN medication usage, resolution of symptoms. 6. DVT Prophylaxis: Lovenox 30mg SC Daily. Please continue to monitor for S/S bleeding, platelets (last 363 on 09/05), CrCl (45mL/min on 09/05). Patient's CrCl is >30mL/min, please consider increasing Lovenox dose to 40mg SC Daily based on renal function if clinically indicated, thank you. 7. Bowel: Senna/Docusate 1 tab PO BID, Miralax 17g PO Daily PRN. Please continueto monitor for increased/decreased constipation/diarrhea. If diarrhea develops, please discontinue scheduled stool softeners, thank you. - The patient has not had a documented BM since admission (<24hrs ago). If the patient does not have a BM in the next 48-72hrs, please consider giving PRN medications to help facilitate a BM. Assessment/Plan for indications treated with psychotropic medications: 1. Depression: Zoloft 50mg PO Daily. Monitor for diarrhea, nausea, headache, anxiety or drowsiness,suicidal thoughts or behaviors (Boxed Warning), symptomsof bleeding, symptoms of serotonin syndrome(including agitation, confusion, hyperreflexia, rigidity/myoclonus, tremor, tachycardia, tachypnea), sodium levels (last = 139 on 09/05). Monitor for efficacy including resident symptoms, behaviors and indications of distress. Monitor for tolerability including mental status, cognition, excessive sleepiness, withdrawal or decreased participation in activities and decline in physical functioning. Maximize use of nonpharmacologic/behavioral interventions to facilitate dose reduction or discontinuation as appropriate. Please evaluate the appropriateness of GDR unless contraindicated. If appropriate, GDR should be attempted in 2 separate quarters within the first year of use or admission to TCU. If GDR attempted, monitor resident symptoms/behaviors. 2. Anxiety: Buspar 7.5mg PO Daily. Monitor for sedation, mental status and cognition. Monitor for falls (risk factor for falls) and implement fall prevention strategies. Monitor for efficacy including resident symptoms, behaviors and indications of distress. Monitor for tolerability including mental status, cognition, excessive sleepiness, withdrawal or decreased participation in activities and decline in physical functioning. Maximize use of nonpharmacologic/behavioral interventions to facilitate dose reduction or discontinuation as appropriate. Please evaluate the appropriateness of GDR unless contraindicated. If appropriate, GDR should be attempted in 2 separate quarters within the first year of use or admission to TCU. If GDR attempted, monitor resident symptoms/behaviors. Medical chart and medication regimen reviewed. The following medication irregularities or issues were identified: 1. DVT Prophylaxis: Lovenox 30mg SC Daily. Patient's CrCl is >30mL/min (45mL/minon 09/05), pleaseconsider increasing Lovenox dose to 40mg SC Daily based on renal function if clinically indicated, thank you. Date Date of Note: 09/05/24 Documented by User: Dr. Qamar Smith MD 09/05/24 17:24 TCU RX Drug Regimen Review Provider Comments Provider responsibility Provider Comments to Recommendations by Pharmacy Agree 09/05/24 1722 Keri Gupta Signature (if applicable): 09/05/24 1724 CC: ~ Signed [facility]06-12-2025 Telephone encounter Note* Telephone Encounter - Fang Myers - 09/05/2024 9:31 AM EDT OV scheduled [facility] Work Phone: 1(944) 285-656506-12-2025 Miscellaneous Notes* Telephone Encounter - Fang Myers - 09/05/2024 9:31 AM EDT OV scheduled * Telephone Encounter - Kate Castillo RN - 09/05/2024 9:15 AM EDT PSS: please make F/U OV with Dr. Poole 09/25/24 at 220pm. No need to call patient. Judy Castillo RN * Telephone Encounter - Kate Castillo RN - 09/04/2024 2:55 PM EDT DISCHARGE CALL BACK Today's date: September 04, 2024 Notified of Pt discharge by: Carmen Patient discharged on 09/04/24 from [facility] to [facility]ci Facility (SNF) at [facility] Primary Cancer Diagnosis: Colon Admitting Diagnosis: exploratory laparotomy, extensive adhesiolysis, RP mass resection with en blocresection of right fallopian tube, right oophorectomy, small bowel resection with revision of iliaccolic anastomosis, ureteral stent placement and femoral nerve ligation on 08/28 Discharge Summary/SBAR reviewed: Yes Handoff Discussed with Transitional Pouncing Lathe Operator: N/A Psychosocial Risk Factors: None If patient discharged to SNF/Rehab Facility, phone call completed to reinforce discharge instructions and follow up: Yes, spoke with Lissy at SNF at [facility] ([phone]). She checked with patient's nurse, they have noquestions about discharge instructions. She states patient is doing really well and needs SNF to help with post-op care. Lissy aware that we will make a follow up OV with Dr. Poole 09/25/24 at 220pm for f/u post-op. She will let patient know and aware that we can move appointment out if needed. Call Disposition: Patient discharged to senior living facility Patient is not currently on any cancer treatment and needs f/u OV with Dr. Poole to discuss next steps. Kate Castillo RN documented in this encounterSt[facility]06[facility] Telephone encounter Note * Telephone Encounter - Kate Castillo RN - 09/05/2024 9:15 AM EDT PSS: please make F/U OV with Dr. Poole 09/25/24 at 220pm. No need to call patient. Judy Castillo RN [facility] Work Phone: 1(738) 552-764706-11-2025 [facility] Medical Records Department [address] [place] [address] History Physical Exam 09/04/242118 MR#: [id number] Acct: [id number] Name: LAKESHA KOCH Rep #: [id number] : 1960 64 From: Qamar Smith MD PCP: Aubrey Lopez [facility]CH[facility]IC S[facility]IOR-C Status:ADM IN Location: [place] [address] HPI - General General Date of Admission: 09/04/24 Date of Service: 09/04/24 Chief Complaint: Here for rehabilitation. HPI Narrative LAKESHA KOCH, is a 64 Female who presents with followin08/28/2024 Admit to [facility]. 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 Overall, patient progressing fairly well however does have notable postoperative pain and expected femoral nerve deficits. Pain management was consulted to assist management of postoperative pain. Patient with hemoglobin drift 7.1 on 08/30/2024, transfused 2 units PRBC and incremented appropriately. NG tube and car was removed 08/30/2024 and patient with signs of return of bowel function on 08/31/2024, advanced to GI soft diet, oralized pain medications 09/01/2024. Patient witn nausea/vomiting on night of 09/02/2024, and backed down to NPO, 09/03/2024 KUB showed mildly dilated loops of bowel. Her diet was advanced to clears and subsequently to GI soft with Remeron added for appetite stimulation. She was skilled for SNF for additional rehabilitation and discharged. 09/04/2024 Admit to TCU with debility, here for rehabilitation, strengthening, prior to discharge home alone. PFSH Medical History (Updated 09/04/24 @ 21:[address] Qamar Smith MD) Seizure disorder Hypotension Marijuana abuse Alcohol dependence ETOH abuse IBS (irritable bowel syndrome) Anxiety Depression Seizure Home Medications ???Medication ???Instructions ???Recorded ???Last Taken ???Type clonazepam 0.25 mg disintegrating 0.25 mg PO PRN PRN Seizures 10/09 Unknown History tablet lacosamide 100 mg tablet 100 mg PO BID #60 tabs 08/25/23 Rx acetaminophen 500 mg capsule 500 - 1,000 mg PO Q6H Pain 4 09/04/24 06:35 History alendronate 70 mg tablet 70 mg PO QWEEK Bone Health 4 Unknown History buspirone 7.5 mg tablet 7.5 mg PO DAILY Mood 10/18/2308/25 08:50 History calcium polycarbophil 625 mg 625 mg PO BID 10/18/23 10/18/23 Hi story tablet (Fiber Laxative (calcium polycarbophil)) divalproex 500 mg tablet,extended 500 mg PO BID Epilesy 10/18/23 History release 24 hr fluconazole 200 mg tablet 200 mg PO X1 #2 tabs 10/18/23 Unkn own Rx (Diflucan) pantoprazole 40 mg tablet,delayed 40 mg PO DAILY 10/18/23 10/18/23 History release potassium chloride 20 mEq 20 meq PO DAILY 10/18/23 10/18/23 History tablet,extended release(part/cryst) sennosides 8.6 mg tablet (senna) 8.6 mg PO BID 10/18/23 10/18/23 Hi story sertraline 50 mg tablet 50 mg PO DAILY Mood 10/18/2309/04 08:50 History amoxicillin 875 mg-potassium 1 tab PO BID #26 tabs 12/13/23 Unk nown Rx clavulanate 125 mg tablet sulfamethoxazole 800 1 tab PO BID #26 tabs 12/13/23 Unk nown Rx mg-trimethoprim 160 mg tablet (Bactrim DS) ondansetron 4 mg disintegrating 4 mg PO Q6H PRN nausea and 5 Unknown Rx tablet vomiting #15 tabs ondansetron 4 mg disintegrating 4 mg PO Q8H PRN PRN Nausea #10 tab s 07/11/24 Unknown Rx tablet enoxaparin 30 mg/0.3 mL 30 mg subcut Q24H DVT Prophylaxis 09/04/24 Unknown History subcutaneous syringe gabapentin 100 mg capsule 100 mg PO QHS Nerve Pain 09/04/24 09/04/24 06:35 History hydromorphone 2 mg tablet 1 - 2 mg PO Q4H PRN pain (scale 09/04/24 08:45 History score 7-10) lidocaine 4 % topical patch 2 patch topical DAILY Pain 5 Unknown History (Lidocaine Pain Relief) methocarbamol 500 mg tablet 750 mg PO Q8H muscle spasm 5 09/04/24 08:45 History polyethylene glycol 3350 17 17 g PO DAILY PRN constipation 02/18 Unknown History gram/dose oral powder sennosides 8.6 mg-docusate sodium 1 tab-cap PO BID Constipation 02/18 Unknown History 50 mg tablet (Senna Plus) Allergy/AdvReac Type Severity Reaction Status Date / Time erythromycin base Allergy TONGUE Verified 04/08/24 14:38 PEELS Family History Sister Melanoma Father Prostate CA Surgical History (Updated 09/04/24 @ 21:50 by (more content not included)... [facility]06-11-2025 Evaluation note* Diagnosis Onset Date Resolution Status Admit Date Anxiety acute September 04 3:29pm Colon cancer acute September 04 025 3:29pm Debility acute September 04 3:29pm Depression acute September 04 3:29pm GERD (gastroesophageal reflu x disease) acute September 04, 2024 3:29pm Osteoporosis acute September 04 025 3:29pm Seizure disorder acute August 3:29pm Hypokalemia resolved September 04 3:29pm [facility] Work Phone: 1(878) 114-960906-11-2025 Evaluation note* Diagnosis Onset Date Resolution Status Admit Date Anxiety acute September 04 3:29pm Colon cancer acute Lina 11th, 2 025 3:29pm Debility acute September 04 3:29pm Depression acute September 04 3:29pm GERD (gastroesophageal reflu x disease) acute September 04, 2024 3:29pm Osteoporosis acute September 04, 2 025 3:29pm Seizure disorder acute August 3:29pm Hypokalemia resolved September 04 3:29pm Abdominal pain acute October 3:14pm [facility] Work Phone: [phone]) 652-941706-11-2025 Evaluation note* Diagnosis Onset Date Resolution Status Admit Date Anxiety acute September 04 3:29pm Colon cancer acute September 04, 2 025 3:29pm Debility acute September 04 3:29pm Depression acute September 04 3:29pm GERD (gastroesophageal reflu x disease) acute September 04, 2024 3:29pm Osteoporosis acute September 04, 025 3:29pm Seizure disorder acute August 3:29pm Hypokalemia resolved September 04 3:29pm Abdominal pain resolved October 3:14pm [facility] Work Phone: 1(134) 747-307906-11-2025 Telephone encounter Note* Telephone Encounter - Kate Castillo RN - 09/04/2024 2:55 PM EDT DISCHARGE CALL BACK Today's date: September 04, 2024 Notified of Pt discharge by: Carmen Patient discharged on 09/04/24 from [facility] to [facility] Facility (SNF) at [facility] Primary Cancer Diagnosis: Colon Admitting Diagnosis: exploratory laparotomy, extensive adhesiolysis, RP mass resection with en blocresection of right fallopian tube, right oophorectomy, small bowel resection with revision of iliaccolic anastomosis, ureteral stent placement and femoral nerve ligation on 08/28 Discharge Summary/SBAR reviewed: Yes Handoff Discussed with Transitional Pouncing Lathe Operator: N/A Psychosocial Risk Factors: None If patient discharged to SNF/Rehab Facility, phone call completed to reinforce discharge instructions and follow up: Yes, spoke with Lissy at SNF at [facility] ([phone]). She checked with patient's nurse, they have noquestions about discharge instructions. She states patient is doing really well and needs SNF to help with post-op care. Lissy aware that we will make a follow up OV with Dr. Poole 09/25/24 at 220pm for f/u post-op. She will let patient know and aware that we can move appointment out if needed. Call Disposition: Patient discharged to senior living facility Patient is not currently on any cancer treatment and needs f/u OV with Dr. Poole to discuss next steps. Kate Castillo RN [facility]06-11-2025 NoteFaBaldpate HospitalAancwlys19-89-7509 Telephone encounter Note* Telephone Encounter - Ashutosh Patient Head Correction OfficerMarilyn Stewart - 09/04/2024 2:07 PM EDT Patient is currently hospitalized. Saw inpatient pall med to discuss symptoms like pain, goc / codestatus. Please offer f/u post discharge [facility]06-11-2025 Miscellaneous Notes* Telephone Encounter - Ashutosh Patient Head Correction OfficerMarilyn Stewart - 09/04/2024 2:07 PM EDT Patient is currently hospitalized. Saw inpatient pall med to discuss symptoms like pain, goc / codestatus. Please offer f/u post discharge * Telephone Encounter - Tricia Burdick PSS - 09/04/2024 10:56 AM EDT REFERRAL FOR PALLIATIVE CARE AT HOME Date Referral Received: 09/04/24 Date of : 1960 Age: [age] year old Patient has PCP: Christie Sánchez NP Visit address from [facility]: [address] [place] [address] Reason for consult: Goals of care Referral Source: [facility] to [facility] Name of Physician who gave the order: TESSA SPRING Other services ordered: Palliative care Primary Insurance Company: Payor: MEDICARE / Plan: MEDICARE A AND B / Product Type: Medicare / Primary Insurance ID Number: [id number] Referral Info Complete. Right click to reselect and continue Referral documented in this encounterSt. [facility]06-11-2025 Telephone encounter Note * Telephone Encounter - Tricia Burdick PSS - 09/04/2024 10:56 AM EDT REFERRAL FOR PALLIATIVE CARE AT HOME Date Referral Received: 09/04/24 Date of : 1960 Age: [age] year old Patient has PCP: Christie Sánchez NP Visit address from [facility]: [address] [facility] [address] Reason for consult: Goals of care Referral Source: [facility] to [facility] Name of Physician who gave the order: SAMER Letha SPRNIG Other services ordered: Palliative care Primary Insurance Company: Payor: MEDICARE / Plan: MEDICARE A AND B / Product Type: Medicare / Primary Insurance ID Number: [id number] Referral Info Complete. Right click to reselect and continue [facility]erral [facility]06-10-2025 Telephone encounter Note* Telephone Encounter - Olga Maria - 09/03/2024 4:20 PM EDT Date/Time: 09/03/2024 4:20 PM Spoke with LAKESHA KOCH @ phone #: [phone] (Home Phone) - Preferred # for contact: LAKESHA KOCH @ phone #: [phone] (Home Phone) Have you received help from a home care company in the last 60 days? NO Are you agreeable to [facility] services? YES What address will we be seeing you at? [address] [facility] [address] Do you have any upcoming appointments or things we need to schedule around? NO Do you have a teachable CG or can you manage your care independently? independently Who? N/A [facility] Work Phone: [phone]) 254-602506-10-2025 Miscellaneous Notes* Telephone Encounter - Olga Maria - 09/03/2024 4:20 PM EDT Date/Time: 09/03/2024 4:20 PM Spoke with LAKESHA KOCH @ phone #: [phone] (Home Phone) - Preferred # for contact: AUGUST, LAKESHA @ phone #: [phone] (Home Phone) Have you received help from a home care company in the last 60 days? NO Are you agreeable to HHC services? YES What address will we be seeing you at? [address] [place] [address] Do you have any upcoming appointments or things we need to schedule around? NO Do you have a teachable CG or can you manage your care independently? independently Who? N/A documented in this encounterSt. Charles Hospital06-10-2025 Telephone encounter Note * Telephone Encounter - Olga Kennedy LPN - 09/03/2024 1:02 PM EDT Jimmie Poole MD Please advise if you are agreeable to signing and following for HHC services? Our Clinicians will be sending the Plan of Care to you for review and approval. They will reach out for any appropriate orders required to provide home care services for the patient. We are not able to initiate HHC services without a following provider. Home care clinicians may also obtain orders from [facility] Providers Thank you and we would be happy to answer any questions. Olga Kennedy LPN 09/03/2024 1:[address] [facility] Work Phone: [phone]) 631-978406-10-2025 Miscellaneous Notes* Telephone Encounter - Olga Kennedy LPN - 09/03/2024 1:02 PM EDT Jimmie Poole MD Please advise if you are agreeable to signing and following for [facility] services? Our Clinicians will be sending the Plan of Care to you for review and approval. They will reach out for any appropriate orders required to provide home care services for the patient. We are not able to initiate C services without a following provider. Home care clinicians may also obtain orders from [facility] Thank you and we would be happy to answer any questions. Olga Kennedy LPN 09/03/2024 1:02 PM documented in this encounterSt. Charles Hospital06-10-2025 [facility] 09-02-2024 [facility]06-09-2025 [facility]06-08-2025 Note [facility]Pglkyqqw01-78-7212 NoteWest [facility] Medical CenterYxkrjijf79-75-6920 [facility]06-06-2025 NoteWest Roxbury Va Medical CenterTaowulsu85-82-9093 [facility] 08-29-2024 [facility]06-05-2025 NoteWest [facility]oxbury Va Medical CenterStkxfxhw65-80-2150 Note [facility] CenterOurfigtj02-68-6609 NoteWest Roxbury Va Medical CenterVsopbvgf93-11-9179 NoteWest Roxbury Va Medical CenterBxgutams76-21-5659 [facility]06-04-2025 [facility] 08-22-2024 Telephone encounter Note* Telephone Encounter - Kate Castillo RN - 08/22/2024 11:49 AM EDT DISCHARGE CALL BACK Today's date: August 22, 2024 Notified of Pt discharge by: Carmen Patient discharged on 08/21/24 from [place] to [place] Primary Cancer Diagnosis: Colon Admitting Diagnosis: Abdominal Pain Discharge Summary/SBAR reviewed: Yes Handoff Discussed with Transitional Pouncing Lathe Operator: N/A Psychosocial Risk Factors: None If patient discharged to SNF/Rehab Facility, phone call completed to reinforce discharge instructions and follow up: N/A Call Disposition: Abdominal pain d/t to recurrent malignancy. Has surgery scheduled 08/28/24. Being followed by Palliative care and pain regimen adjusted. Surgery consulted, no indication to move surgery up and keep as scheduled. Will follow post-surgery for follow up with Dr. Poole. Kate Castillo RN [facility] Work Phone: [phone]) 833-950505-29-2025 Miscellaneous Notes* Telephone Encounter - Kate Castillo RN - 08/22/2024 11:49 AM EDT DISCHARGE CALL BACK Today's date: August 22, 2024 Notified of Pt discharge by: Carmen Patient discharged on 08/21/24 from [place] to [place] Primary Cancer Diagnosis: Colon Admitting Diagnosis: Abdominal Pain Discharge Summary/SBAR reviewed: Yes Handoff Discussed with Transitional Pouncing Lathe Operator: N/A Psychosocial Risk Factors: None If patient discharged to SNF/Rehab Facility, phone call completed to reinforce discharge instructions and follow up: N/A Call Disposition: Abdominal pain d/t to recurrent malignancy. Has surgery scheduled 08/28/24. Being followed by Palliative care and pain regimen adjusted. Surgery consulted, no indication to move surgery up and keep as scheduled. Will follow post-surgery for follow up with Dr. Poole. Kate Castillo RN documented in this encounterSt. Charles Hospital05-28-2025 [facility] 08-21-2024 [facility]05-26-2025 [facility]05-14-2025 Note [facility]05-12-2025 [facility]-20[facility] Telephone encounter Note* Telephone Encounter - Bryanna Gonzalez LPN - 07/31/2024 4:01 PM EDT Patient calling in for a refill. Rx pended. Please send. Bryanna Gonzalez LPN [facility]05-07-2025 Miscellaneous Notes* Telephone Encounter - Bryanna Gonzalez LPN - 07/31/2024 4:01 PM EDT Patient calling in for a refill. Rx pended. Please send. Bryanna Gonzalez LPN documented in this encounterSt. Charles Hospital05-07-2025 [facility] History of Present illness Narrative* Jimmie Poole MD - 07/31/2024 8:36 AM EDT (Elements copied from my note dated July 19, 2024, have been reviewed and updated where appropriate, and all reflect current assessment and medical decision making from today's encounter, July 31, 2024) HISTORY OF PRESENT ILLNESS: Lakesha Koch is a 63 year old female July 2023, had large bowel perforation with obstruction, had a drain in place, had a post obstruction infection which persisted. Home a few weeks now. Slowly getting back on feet. Appetite good but things taste funny, so intake not optimal, weight down. We and family in attendance by phone and in person discussed recent dx of right colon cancer, pT4N0, grade 2, but prior obstruction and lymphatic invasion render higher risk of recurrence. We discussed the role of adjuvant chemotherapy in reducing recurrence risk. As stage II her risks are fairly low, adjuvant chemo will reduce risks by approximately 5%. Adjuvant Xeloda commenced 02-01-24. Here for follow up after CT scan July 11 2024 showing progressive RLQ abdominal masses. These progressed since February 2024 where they were described as inflammatory masses. Here for follow up post biopsy. Communicated with Dr Spring. TB discussion favors resection or radiation. CLINICAL IMPRESSION: Stage II colon cancer with high risk features. Local recurrence in setting of adjuvant capecitabinetherapy RECOMMENDATION/PLAN: Follow up with Dr Spring. Plan to see back after resection or radiation. My thought is to administer adjuvant FolFOx given these developments. Written and verbal health teaching given to patient, patient verbalizes understanding and agrees with treatment plan. PAST MEDICAL HISTORY Diagnosis Date Anemia Anorexia nervosa (HCC) Bowel wall thickening Daily consumption of alcohol Depression Essential tremor Failure to thrive in adult Feeding difficulties Focal epilepsy (HCC) Gait abnormality Inflammation of colonic mucosa Intestinal obstruction (HCC) Migraine Migraine without aura 05/03/2019 Muscular deconditioning Perforated 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 with localized peritonitis, gangrene and abscess Psoas abscess, right (HCC) Seizures (HCC) Severe protein-calorie malnutrition (HCC) PAST SURGICAL HISTORY Procedure Laterality Date APPENDECTOMY 01/03/2024 COLONOSCOPY DIAGNOSTIC polyp EXPLORATORY OF ABDOMEN 09/19/2023 ROCIO DRAIN TO BULB SUCTION 09/01/2023 for acute 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 with perforation, localized peritonitis, and gangrene. FAMILY HISTORY Problem Relation Age of Onset Lung Cancer Mother Prostate Cancer Father Melanoma Sister No Known Problems Sister No Known Problems Sister No Known Problems Brother No Known Problems Brother No Known Problems Maternal Grandmother No Known Problems Maternal Grandfather Breast Cancer Paternal Grandmother No Known Problems Paternal Grandfather Anesthesia Problems No Family History Colon Cancer No Family History Social History Tobacco Use Smoking status: Former Current packs/day: 0.00 Average packs/day: 1 pack/day for 18.1 years (18.1 ttl pk-yrs) Types: Cigarettes Start date: 1977 Quit date: 1995 Years since quittin.3 Passive exposure: Past Smokeless tobacco: Never Vaping Use Vaping status: Some Days Substance Use Topics Alcohol use: Not Currently Comment: sober, quit 3 years ago Drug use: Not Currently Types: Marijuana Comment: unknown ALLERGIES: ALLERGIES Allergen Reactions Erythromycin Unknown Azithromycin Unknown CURRENT OUTPATIENT MEDICATIONS: oxyCODONE IR (ROXICODONE) 5 mg immediate release tablet Take 5 mg by mouth every 6 hours as needed for pain. ondansetron orally disintegrating (ZOFRAN ODT) 4 mg disintegrating tablet Take 1 tablet by mouth every 8 hours as needed for nausea/vomiting. capecitabine (XELODA) 500 mg tablet Take 2 tablets (1000 mg) by mouth in the morning and 2 tablets (1000 mg) in the evening for 14 days on and 7 days off. Take with food ondansetron (ZOFRAN) 4 mg tablet Take 1 tablet by mouth two times a day as needed for nausea/vomiting. FOR NAUSEA acetaminophen (TYLENOL EXTRA STRENGTH) 500 mg tablet Take 1-2 tablets by mouth every 6 hours as needed for pain. busPIRone (BUSPAR) 7.5 mg tablet Take 7.5 mg by mouth once daily. alendronate (FOSAMAX) 70 mg tablet Take 70 mg by mouth one time a week. sertraline (ZOLOFT) 50 mg tablet Take 50 mg by mouth once daily. divalproex ER (DEPAKOTE ER) 250 mg 24 hr tablet Take 2 tablets by mouth two times a day. amoxicillin (AMOXIL) 500 mg capsule Take 500 mg by mouth three times a day. (Patient not taking: Reported on 07/19/2024) methocarbamol (ROBAXIN) 500 mg tablet Take 1 tablet by mouth two times a day as needed (muscle spasms). HOLD if lighted or dizzy REVIEW OF SYSTEMS: GENERAL: No fever, night sweats, weight loss or malaise. All other reviewed and negative other than HPI. PHYSICAL EXAMINATION: VITAL SIGNS: BP 94/62 Pulse 77 Temp (Src) 97.4 (Temporal) Wt 94 lb (42.6kg) SpO2 100% GENERAL APPEARANCE: Well appearing, in no acute distress, alert and oriented x3, well-hydrated, well nourished. I spent a total of 30 minutes on the date of the service which included preparing to see the patient, [id number] patient care, completing clinical documentation, obtaining and/or reviewing separately obtained history, counseling and educating the patient/family/caregiver, ordering medications, arron ts, or procedures, communicating with other HCPs (not separately reported), independently interpreting results (not separately reported), communicating results to the patient/family/caregiver, and care coordination (not separately reported). And review of NCCN guidelines Electronically Signed: Jimmie Poole MD July 31, 2024 documented in this encounterSt. Charles Hospital04-28-2025 Telephone encounter Note * Telephone Encounter - Kate Castillo RN - 07/22/2024 12:[address] Poole aware and will send in Rx for Oxycodone. Judy Castillo RN [facility] Work Phone: 1(815) 419-644004-28-2025 Miscellaneous Notes* Telephone Encounter - Kate Castillo RN - 07/22/2024 12:[address] Poole aware and will send in Rx for Oxycodone. Jduy Castillo RN * Telephone Encounter - Kate Castillo RN - 07/22/2024 12:44 PM EDT Patient calls in and states that her pain is the same area, nothing new but it has increased from 5/10 to 8/10. She has been taking 2-3 tab of Tylenol every 4- 6 hours and not helping. She denies other new issues but concerned the pain will increase more with biopsy that is planned for this Monday. Judy Castillo RN * Telephone Encounter - Bettye Flores - 07/22/2024 12:35 PM EDT Patient called back and was transferred to [facility] * Telephone Encounter - Kate Castillo RN - 07/22/2024 11:39 AM EDT Call to patient, message left to call me back and phone/contact number provided. Kate Castillo RN documented [facility] Telephone encounter Note * Telephone Encounter - Kate Castillo RN - 07/22/2024 12:44 PM EDT Patient calls in and states that her pain is the same area, nothing new but it has increased from 5/10 to 8/10. She has been taking 2-3 tab of Tylenol every 4- 6 hours and not helping. She denies other new issues but concerned the pain will increase more with biopsy that is planned for this Monday. Judy Castillo RN [facility]04-28-2025 Telephone encounter Note* Telephone Encounter - Bettye Flores - 07/22/2024 12:35 PM EDT Patient called back and was transferred to REAL Gutierrez [facility]04-28-2025 Telephone encounter Note* Telephone Encounter - Kate Castillo RN - 07/22/2024 11:39 AM EDT Call to patient, message left to call me back and phone/contact number provided. Kate Castillo RN [facility]04[facility]25-[facility] Note [facility] Telephone encounter Note* Telephone Encounter - Kate Castillo RN - 07/16/2024 2:03 PM EDT Patient scheduled bx of abdominal mass per Dr. Spring. Scheduled for 07/24/24. See OV note 07/15/24. Judy Castillo RN [facility] Work Phone: 1(901) 392-513504-22-2025 Miscellaneous Notes* Telephone Encounter - Kate Castillo RN - 07/16/2024 2:03 PM EDT Patient scheduled bx of abdominal mass per Dr. Spring. Scheduled for 07/24/24. See OV note 07/15/24. Judy Castillo RN * Telephone Encounter - Kate Castillo RN - 07/12/2024 10:19 AM EDT Call to patient, message left to call me back and phone/contact number provided. Judy Castillo RN * Telephone Encounter - Kate Castillo RN - 07/12/2024 10:19 AM EDT Images from the original note were not included. * Telephone Encounter - Kate Castillo RN - 07/12/2024 9:50 AM EDT Per Care Everywhere, patient did go to the ED yesterday, was discharged. She did have CT A/P yesterday here at the Clinic. Sent secure message to Dr. Poole with update on patient and asked to review CT's and advise. Will call patient for update on status today after discussing plan with him. Judy Castillo RN * Telephone Encounter - Che Cortes LPN - 07/11/2024 11:09 AM EDT Pt. Called into office today requesting to be hydrated, states she doesn't feel very good, unable to elaborate, other than to say I just feel like I need to be hydrated. States yesterday she went home and drank a lot of water. Questioned if she went to ER yesterday as instructed, she said she did not. Instructed she needs to go to Emergency roon for evaluation. Pt. Voiced understanding. Che Cortes LPN * Telephone Encounter - Anastasiya Garces RN - 07/10/2024 3:15 PM EDT Late entry-07/10/24 3pm- Pt came in c/o needing to be seen for nausea, dehydration, and feeling off. No apts scheduled at this time. Encouraged pt to go to ER d/t symptoms. Offered water and pt refused. Pt sat in waiting room with staff until a ride came to pick her up at front door. Pt verbalizedshe was going to [facility]. Anastasiya Garces RN documented in this encounterSt[facility]04-[facility]-2025 [facility] History of Present illness Narrative* Tessa Spring MD - 07/15/2024 4:25 PM EDT Images from the original note were not included. Established Patient Visit REASON FOR VISIT Follow up imaging I have communicated my name and active licensure. The patient's identity and physical location wereverified at the time of this visit. Either the patient or their legal sales and marketing representative has been informed of the risks and benefits of -- and alternatives to -- treatment through a remote evaluation andconsents to proceed with the evaluation remotely. History of Present Illness: Lakesha Koch is a 64 year old year old female who was admitted to an outside hospital in August 2023 after a fall and was found to have signs of perforated 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. The patient states she was planned for appendectomy which never happened. Instead, she had a percutaneous drain placed in the collection and was discharged home on a long course of IV antibiotics. The patient also states there was no clear plan for an interval appendectomy at that time. During her time at home she experienced several episodes of abdominal pain and nausea which required a visit to [facility] where she continued to receive conservative management with nondenominational of bowel function. On follow-up visits, the drain was managed expectantly and was eventually removed a month ago. During this course, the patient experienced significant failure to thrive and weight loss. She eventually underwent an ileocecectomy with fl on 01/04/2024 that showed the following on pathology: She recovered well from surgery and currently follows with medical oncology who recommended adjuvant capecitabine. She is on the intended treatment with some side effects but generally tolerable. She recently underwent a CT that showed enlarging masses in the R RP around the site of resection suspicious for locally recurrent disease. No evidence of distant metastases. CT ABD/PEL 07/11/2024: Otherwise her weight has been stable (90 lbs). She had some side effects from the Capecitabine and the dose has been reduced by her medical oncologist. FUNCTIONAL STATUS: Take care of self, that is eating, dressing, bathing, using the toilet (2.75 METs) PAST MEDICAL HISTORY Diagnosis Date Anemia Anorexia nervosa Bowel wall thickening Daily consumption of alcohol Depression Essential tremor Failure to thrive in adult Feeding difficulties Focal epilepsy (HCC) Gait abnormality Inflammation of colonic mucosa Intestinal obstruction (HCC) Migraine Migraine without aura 05/03/2019 Muscular deconditioning Perforated 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 with localized peritonitis, gangrene and abscess Psoas abscess, right (HCC) Seizures (HCC) Severe protein-calorie malnutrition (HCC) PAST SURGICAL HISTORY Procedure Laterality Date APPENDECTOMY 01/03/2024 COLONOSCOPY DIAGNOSTIC polyp EXPLORATORY OF ABDOMEN 09/19/2023 ROCIO DRAIN TO BULB SUCTION 09/01/2023 for acute 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 with perforation, localized peritonitis, and gangrene. FAMILY HISTORY Problem Relation Age of Onset Lung Cancer Mother Prostate Cancer Father Melanoma Sister No Known Problems Sister No Known Problems Sister No Known Problems Brother No Known Problems Brother No Known Problems Maternal Grandmother No Known Problems Maternal Grandfather Breast Cancer Paternal Grandmother No Known Problems Paternal Grandfather Anesthesia Problems No Family History Colon Cancer No Family History Social History Tobacco Use Smoking status: Former Current packs/day: 0.00 Average packs/day: 1 pack/day for 18.1 years (18.1 ttl pk-yrs) Types: Cigarettes Start date: 1977 Quit date: 1995 Years since quittin.3 Passive exposure: Past Smokeless tobacco: Never Vaping Use Vaping status: Some Days Substance Use Topics Alcohol use: Not Currently Comment: sober, quit 3 years ago Drug use: Not Currently Types: Marijuana Comment: unknown MEDICATIONS Current Outpatient Medications Medication Sig Dispense Refill capecitabine (XELODA) 500 mg tablet Take 2 tablets (1000 mg) by mouth in the morning and 2 tablets (1000 mg) in the evening for 14 days on and 7 days off. Take with food 56 tablet 2 amoxicillin (AMOXIL) 500 mg capsule Take 500 mg by mouth three times a day. ondansetron orally disintegrating (ZOFRAN ODT) 4 mg disintegrating tablet Take 1 tablet by mouth every 8 hours as needed for nausea/vomiting. 60 tablet 2 ondansetron (ZOFRAN) 4 mg tablet Take 1 tablet by mouth two times a day as needed for nausea/vomiting. FOR NAUSEA 30 tablet 2 methocarbamol (ROBAXIN) 500 mg tablet Take 1 tablet by mouth two times a day as needed (muscle spasms). HOLD if lighted or dizzy 12 tablet 0 Food Supplement, Lactose-Free (PROMOTE, OSMOLITE, TWO DILLAN, ENSURE PLUS, ENLIVE) liqd Take 237 mL bymouth three times a day with meals. (Patient not taking: Reported on 05/06/2024) 3000 mL 11 acetaminophen (TYLENOL EXTRA STRENGTH) 500 mg tablet Take 1-2 tablets by mouth every 6 hours as needed for pain. busPIRone (BUSPAR) 7.5 mg tablet Take 7.5 mg by mouth once daily. alendronate (FOSAMAX) 70 mg tablet Take 70 mg by mouth one time a week. sertraline (ZOLOFT) 50 mg tablet Take 50 mg by mouth once daily. divalproex ER (DEPAKOTE ER) 250 mg 24 hr tablet Take 2 tablets by mouth two times a day. 360 tablet1 Food Supplement, Lactose-Free (ENSURE ACTIVE HIGH PROTEIN) liqd Take 237 mL by mouth three times a day with meals. (Patient not taking: Reported on 04/16/2024) 54233 mL 0 Food Supplement, Lactose-Free (ENSURE HIGH PROTEIN) liqd Take 237 mL by mouth two times a day. 2 times daily between meals 76540 mL 0 Food Supplement, Lactose-Free (ENSURE CLEAR) liqd Take 237 mL by mouth daily after lunch. PM Snack 7110 mL 0 No current facility-administered medications for this visit. CURRENT ALLERGIES ALLERGIES Allergen Reactions Erythromycin Unknown Azithromycin Unknown REVIEW OF SYSTEMS PAIN ASSESSMENT: Pain Pain Level: 5 Pain Location: (Patient-Rptd) Abdomen-Right Lower Quadrant Description: (Patient-Rptd) Dull, Surgical/Not Incision, Tenderness, Tightness Duration Amount of Time: (Patient-Rptd) 2 Duration Units: (Patient-Rptd) Weeks Frequency: (Patient-Rptd) Continuous General: Weight relatively stable 93 lbs Neuro: Seizures on Depakote Respiratory: No history of current cough or dyspnea, or pneumonia in the past 6 weeks. No history of respiratory/pulmonary symptoms or problems Cardiovascular: No history of HTN requiring medication, no history of angina, CHF, MS, cardiac surgery or stents. Denies rest pain, gangrene or revascularization/amputation for PVD. No history of cardiovascular symptoms or problems. GI: See HPI : No history of UTI in past 6 weeks. No history of renal failure. Not currently on or requiring dialysis. No history of symptoms or problems. Endocrine: No history of diabetes. Has not taken steroids within the past 30 days. No history of endocrinological symptoms or problems. Hematology: Iron deficiency anemia due to malnutrition and long hospitalization Oncology: No history of CA metastasis, chemo within 30 days, or radiotherapy within 90 days. Has not lost 10% of body wt in 6 months. No history of oncological symptoms or problems. Psych: No history of psychiatric symptoms or problems. Musculoskeletal: Negative for joint pain or swelling, back pain or muscle pain. Skin: Negative for lesions, rash and itching. Anemia: No PHYSICAL EXAMINATION There were no vitals taken for this visit. This consult was conducted via a virtual video platform and all the findings stated below are extrapolated from the video visit. General: alert and appropriate, in no distress, well-hydrated, well nourished, and happy, smiling, interactive Skin: no rash noted Head: normocephalic, no abnormality or lesion noted Eyes: no injection Ears: external ears normal Nose: external nose normal without rhinorrhea Oropharynx: moist mucus membranes Neck: full ROM, no masses or LNs visible and no visible JVD or carotid pulsations Respiratory: breathing non-labored and no cyanosis Chest: equal chest rise with normal respiratory effort Heart: No visible pulsations. Abdomen: soft and non-tender Neurologic: No gross neurological deficits noted. ASSESSMENT 64-year-old female status post admission in August 2023 for suspected 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 that was managed for a long-term with drain and antibiotics. 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 Recent CT in Jun 2024 shows enlarging masses in the R RP suspicious for locally recurrent disease. RECOMMENDATION I explained to the patient the findings on the recent CT scan which raise concern for local recurrence of her cecal adenocarcinoma in the context of a previously perforated tumor. I agreed that an image guided biopsy is the best next step to establish tissue diagnosis then I will present her case on TB for a consensus regarding the treatment options. I briefly explained that we will discuss surgery vs radiation in the absence of distant metastatic disease. Meanwhile she will continue Capecitabine until the plan is confirmed. Medical Decision Making: Problems: High: Illness/injury w/ threat to life/body function Data: Unique source(s) for external note(s) reviewed: 3+ Unique test result(s) reviewed: 3+ Unique test(s) ordered: 1 Assessment requiring an independent historian(s) Independent interpretation of test from other physician/QHCP Risk: High: High risk from testing/treatment Medical Decision Making Level: 5 - High Tessa Spring MD [facility] July 15, 2024 documented in this encounterSt[facility]04-[facility] Telephone encounter Note * Telephone Encounter - Kate Castillo RN - 07/12/2024 10:19 AM EDT Call to patient, message left to call me back and phone/contact number provided. Judy Castillo RN [facility]04-18-2025 Telephone encounter Note* Telephone Encounter - Kate Castillo RN - 07/12/2024 10:19 AM EDT Images from the original note were not included. [facility]04-18-[facility] Telephone encounter Note* Telephone Encounter - Kate Castillo RN - 07/12/2024 9:50 AM EDT Per Care Everywhere, patient did go to the ED yesterday, was discharged. She did have CT A/P yesterday here at the Clinic. Sent secure message to Dr. Poole with update on patient and asked to review CT's and advise. Will call patient for update on status today after discussing plan with him. Judy Castillo RN [facility]04-17-2025 Telephone encounter Note* Telephone Encounter - Che Cortes LPN - 07/11/2024 11:09 AM EDT Pt. Called into office today requesting to be hydrated, states she doesn't feel very good, unable to elaborate, other than to say I just feel like I need to be hydrated. States yesterday she went home and drank a lot of water. Questioned if she went to ER yesterday as instructed, she said she did not. Instructed she needs to go to Emergency roon for evaluation. Pt. Voiced understanding. Che Cortes LPN [facility]04-16-2025 Telephone encounter Note* Telephone Encounter - Anastasiya Garces RN - 07/10/2024 3:15 PM EDT Late entry-07/10/24 3pm- Pt came in c/o needing to be seen for nausea, dehydration, and feeling off. No apts scheduled at this time. Encouraged pt to go to ER d/t symptoms. Offered water and pt refused. Pt sat in waiting room with staff until a ride came to pick her up at front door. Pt verbalizedshe was going to [facility]. Anastasiya Garces RN [facility]04-10-2025 Telephone encounter Note* Telephone Encounter - Amber Valverde LISW - 07/04/2024 3:45 PM EDT SOCIAL WORK FOLLOW UP NOTE: [facility] Date of service: July 04, 2024 Lakesha Koch is being seen for a follow up social work visit. Today's visit includes: patient TOPICS ADDRESSED: finances - SW met with pt this date. Pt inquiring about a [place] that may reimburse her Medicare premium. Sw discussed with pt that these are managed by the financial navigators and that SW will refer pt this date. Pt in agreement. SW referred pt this date via email to [facility]. No other needs identified at this time. PLAN: Assist with financial support applications and Continue follow up as needed F/U APPOINTMENT: PRN Assigned DOM listed in Care Team tab: Yes ANG Peterson [facility]04-10-2025 Miscellaneous Notes* Telephone Encounter - Amber Valverde LISW - 07/04/2024 3:45 PM EDT SOCIAL WORK FOLLOW UP NOTE: [facility] Date of service: July 04, 2024 Lakesha Koch is being seen for a follow up social work visit. Today's visit includes: patient TOPICS ADDRESSED: finances - DOM met with pt this date. Pt inquiring about a [place] that may reimburse her Medicare premium. Sw discussed with pt that these are managed by the financial navigators and that SW will refer pt this date. Pt in agreement. SW referred pt this date via email to [employer]. No other needs identified at this time. PLAN: Assist with financial support applications and Continue follow up as needed F/U APPOINTMENT: PRN Assigned DOM listed in Care Team tab: Yes ANG Peterson documented in this encounterSt. [facility] Hospital04-10-2025 Telephone encounter Note * Telephone Encounter - Bryanna Gonzalez LPN - 07/04/2024 11:23 AM EDT Patient stopped in office to let us know she started her Xeloda yesterday. Patient's labs/OV rescheduled to 07/19/2024. Bryanna Gonzalez LPN [facility]04-10-2025 Miscellaneous Notes* Telephone Encounter - Bryanna Gonzalez LPN - 07/04/2024 11:23 AM EDT Patient stopped in office to let us know she started her Xeloda yesterday. Patient's labs/OV rescheduled to 07/19/2024. Bryanna Gonzalez LPN * Telephone Encounter - Ellyn Zhang RN - 07/02/2024 9:31 AM EDT Patient instructed to call our office once she has a delivery date for medication so labs/OV can beadjusted to her off week. Ellyn Zhang RN * Telephone Encounter - Fang Myers - 07/02/2024 9:19 AM EDT Patient called stating specialty pharmacy was having issues with her Medicare and she may not be able to start medication when she was originally suppose to. Medicare A and B are verifying in chart. Patient is asking if she should move her 07/17 lab and office visit out to align with when she will start medication. Please advise patient. documented in this encounterSt. [facility]04-08-2025 Telephone encounter Note * Telephone Encounter - Rema Beltre RN - 07/02/2024 10:29 AM EDT Returned call and spoke to patient. Patient stated she is still experiencing some abdominal discomfort. Last saw Dr. Spring in March and he recommended a CT scan in 3 months. Advised patient I would get scan ordered and scheduled for her so we can address the pain - follow up with an office visit after scan. Patient understanding and thankful for plan. [facility]04-08-2025 Miscellaneous Notes* Telephone Encounter - Rema Beltre RN - 07/02/2024 10:29 AM EDT Returned call and spoke to patient. Patient stated she is still experiencing some abdominal discomfort. Last saw Dr. Spring in March and he recommended a CT scan in 3 months. Advised patient I would get scan ordered and scheduled for her so we can address the pain - follow up with an office visit after scan. Patient understanding and thankful for plan. * Telephone Encounter - Brittany Mariscal - 07/02/2024 9:38 AM EDT Patient called and left a message regarding post operative 12/2023 Diagnostic laparoscopy Exploratory laparotomy Drainage of intraabdominal abscess Ileocecectomy End-to-side ileo-ascending hand sawn anastomosis Bilateral TAP blocks (transversus abdominis block with guidance) and concerns regarding abdominal pain return call to [phone] documented in this encounterSt. [facility]04-08-2025 Telephone encounter Note * Telephone Encounter - Brittany Mariscal - 07/02/2024 9:38 AM EDT Patient called and left a message regarding post operative 12/2023 Diagnostic laparoscopy Exploratory laparotomy Drainage of intraabdominal abscess Ileocecectomy End-to-side ileo-ascending hand sawn anastomosis Bilateral TAP blocks (transversus abdominis block with guidance) and concerns regarding abdominal pain return call to [phone] [facility] Work Phone: 1(300) 709-788204-08-2025 Telephone encounter Note* Telephone Encounter - Ellyn Zhang RN - 07/02/2024 9:31 AM EDT Patient instructed to call our office once she has a delivery date for medication so labs/OV can beadjusted to her off week. Ellyn Zhang RN [facility]04-08-2025 Telephone encounter Note* Telephone Encounter - Fang Myers - 07/02/2024 9:19 AM EDT Patient called stating specialty pharmacy was having issues with her Medicare and she may not be able to start medication when she was originally suppose to. Medicare A and B are verifying in chart. Patient is asking if she should move her 07/17 lab and office visit out to align with when she will start medication. Please advise patient. [facility] Work Phone: 1(577) 497-655804-01-2025 History of Present illness Narrative* Jag Lenz RD - 06/25/2024 10:00 AM EDT Oncology Nutrition Therapy Initial Assessment Nutrition Diagnosis: Behavioral-Environmental: Food and nutrition related knowledge deficit, related to, lack of prior exposure to information , as evidenced by change in existing diagnosis or condition. RECOMMENDED MALNUTRITION DIAGNOSIS: MODERATE PROTEIN-CALORIE MALNUTRITION NUTRITION CARE PLAN Nutrition Intervention: -Consider meal prepping prior to treatment. - aim for 5-6 small/frequent meals - incorporate lean sources of protein/plant based proteins at meals - Stay well hydrated - sip on fluids throughout the day -Continue Boost VHC x 2 per day -Strategies to manage treatment side effects: remove seeds, peels, skins from diet Use thickening foods to manage diarrhea Continue to increase physical activity Monitor wellbeing r/t energy level - do not rely soley on weight. Nutrition Monitoring & Evaluation: - PO Intake - Supplement Intake - Weight - Labs - Malnutrition Status Nutrition Assessment Patient presents with adenocarcinoma of cecum Patient's symptoms are: Weight loss Diarrhea Early satiety Chewing problems Taste changes Diet History: Boost VHC (530 dillan) 2 per day Makes with milkshake + whey protein powder est dillan= 1300 dillan L: salads, lettuce, tomato, hb egg, chicken salad D: 2 1/2 stuffed shells Activity: Activities of Daily Living: Active 25% of the day. 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 Yes Eating less than 75% of usual intake for more than 2 weeks? No Potential Signs of Inflammation: chronic condition In the context of Chronic Illness or Injury based on: Unintentional Weight Loss: 5% in 1 month Insufficient Energy Intake: Less than 75% energy intake compared to estimated needs for greater than or equal to 1 month RECOMMENDED MALNUTRITION DIAGNOSIS: MODERATE PROTEIN-CALORIE MALNUTRITION Inflammatory Markers CRP (mg/dL) Date Value 09/15/2023 11.3 (H) Glucose (mg/dL) Date Value 06/17/2024 115 (H) Albumin (g/dL) Date Value 06/17/2024 4.1 Anthropometrics: HEIGHT/WEIGHT/BSA Height BSA (m2) Weight 09/23/2023 1.49 m2 108 lb 7.5 oz 09/26/2023 1.4 m2 95 lb 3.8 oz 10/03/2023 162.6 cm (5' 4) 1.35 m2 88 lb 6.4 oz 10/11/2023 162.6 cm (5' 4) 1.37 m2 91 lb 1.36 m2 90 lb 12.8 oz 10/23/2023 162.6 cm (5' 4) 1.36 m2 90 lb 12/18/2023 162.6 cm (5' 4.02) 1.39 m2 93 lb 11.1 oz 12/28/2023 162.6 cm (5' 4) 1.38 m2 92 lb 13 oz 01/03/2024 162.6 cm (5' 4) 1.34 m2 88 lb 01/18/2024 162.6 cm (5' 4) 1.34 m2 87 lb 4.8 oz 01/29/2024 1.35 m2 88 lb 6.5 oz 02/01/2024 1.35 m2 89 lb 02/12/2024 162.6 cm (5' 4.02) 1.35 m2 89 lb 1.1 oz 03/07/2024 162.6 cm (5' 4) 1.41 m2 96 lb 9 oz 04/08/2024 1.38 m2 93 lb 4.1 oz 04/16/2024 1.37 m2 92 lb 05/06/2024 1.38 m2 93 lb 8 oz 05/13/2024 162.6 cm (5' 4) 1.4 m2 95 lb 3.2 oz 06/17/2024 1.36 m2 90 lb 8 oz Estimated body mass index is 15.53 kg/m as calculated from the following: Height as of 05/13/24: 162.6 cm (5' 4). Weight as of 06/17/24: 41.1 kg (90 lb 8 oz). Resting Metabolic Rate: 945 Weight Change: 5.2% weight loss in one month; 17% weight loss in one year Dosing Weight: 41 kg Estimated kilocalorie needs: 8700-0844 kilocalories determined by 30-35 kcal/kg Estimated protein needs: 50-62 grams determined by 1.2-1.5 g/kg Dosing weight Estimated fluid needs: 1500 milliliters based on 1 mL per kcal Allergies: Erythromycin and Azithromycin Medications: Current Outpatient Medications Medication Sig Dispense Refill capecitabine (XELODA) 500 mg tablet Take 2 tablets (1000 mg) by mouth in the morning and 2 tablets (1000 mg) in the evening for 14 days on and 7 days off. Take with food 56 tablet 2 amoxicillin (AMOXIL) 500 mg capsule Take 500 mg by mouth three times a day. ondansetron orally disintegrating (ZOFRAN ODT) 4 mg disintegrating tablet Take 1 tablet by mouth every 8 hours as needed for nausea/vomiting. 60 tablet 2 ondansetron (ZOFRAN) 4 mg tablet Take 1 tablet by mouth two times a day as needed for nausea/vomiting. FOR NAUSEA 30 tablet 2 methocarbamol (ROBAXIN) 500 mg tablet Take 1 tablet by mouth two times a day as needed (muscle spasms). HOLD if lighted or dizzy 12 tablet 0 Food Supplement, Lactose-Free (PROMOTE, OSMOLITE, TWO DILLAN, ENSURE PLUS, ENLIVE) liqd Take 237 mL bymouth three times a day with meals. (Patient not taking: Reported on 05/06/2024) 3000 mL 11 acetaminophen (TYLENOL EXTRA STRENGTH) 500 mg tablet Take 1-2 tablets by mouth every 6 hours as needed for pain. busPIRone (BUSPAR) 7.5 mg tablet Take 7.5 mg by mouth once daily. alendronate (FOSAMAX) 70 mg tablet Take 70 mg by mouth one time a week. sertraline (ZOLOFT) 50 mg tablet Take 50 mg by mouth once daily. divalproex ER (DEPAKOTE ER) 250 mg 24 hr tablet Take 2 tablets by mouth two times a day. 360 tablet1 Food Supplement, Lactose-Free (ENSURE ACTIVE HIGH PROTEIN) liqd Take 237 mL by mouth three times a day with meals. (Patient not taking: Reported on 04/16/2024) 76308 mL 0 Food Supplement, Lactose-Free (ENSURE HIGH PROTEIN) liqd Take 237 mL by mouth two times a day. 2 times daily between meals 52951 mL 0 Food Supplement, Lactose-Free (ENSURE CLEAR) liqd Take 237 mL by mouth daily after lunch. PM Snack 7110 mL 0 No current facility-administered medications for this visit. Need for Follow up: as needed Referred/Supervised by: Adrienne CHAPMAN Billing Type: Initial Assess/15 min 2 units Signed by: Jag Lenz RD, LD documented in this encounterSt. [facility]04-[facility] History of Present illness Narrative* Adrienne Bahena - 06/17/2024 9:52 AM EDT Lakesha Koch 1960 06/17/2024 HISTORY OF PRESENT ILLNESS: Lakesha Koch is a 63 year old female July 2023, had large bowel perforation with obstruction, had a drain in place, had a post obstruction infection which persisted. Home a few weeks now. Slowly getting back on feet. Appetite good but things taste funny, so intake not optimal, weight down. We and family in attendance by phone and in person discussed recent dx of right colon cancer, pT4N0, grade 2, but prior obstruction and lymphatic invasion render higher risk of recurrence. We discussed the role of adjuvant chemotherapy in reducing recurrence risk. As stage II her risks are fairly low, adjuvant chemo will reduce risks by approximately 5%. Interval Hx: Ms. Koch presents today for follow up prior to next cycle of adjuvant xeloda. Tearful today. Has been working very hard to gain weight. Drinking 2 ensures daily. Making milk shakes to increase calories. Down 3-5 lbs this month. N/V/D have improved some with previous reduction but still daily. She is having a tooth pulled this week. Discussed tooth pain may be contributing to limited intake. She is interested in meeting with CATHI Resendiz. Denies new aches or pains. No neuropathy. Skin cracking to fingertips. No redness today. She moisturizes and wears gloves to bed. Occasional difficulty swallowing large pills. Denies recent illness. No new or worsening SOB, CP or palpitations. Denies fever. No new aches or pains. Denies PLELETIER, dizziness. CLINICAL IMPRESSION: Stage II colon cancer with high risk features. She is agreeable to doing adjuvant capecitabine, info give. RECOMMENDATION/PLAN: - Continue with capecitabine, tolerating better with dose reduction - Decrease to 1000mg (2 tabs) in am and 1000mg (2tabs) in PM dose reduction with start of next cycle for N/V/D. Hand peeling, weight loss, Pt acknowledged. - delay start by one week for tooth extraction (see TE) - ODT zofran PRN - hypokalemia resolved today - referral to onc nutrition for wt loss. - Labs in 4 weeks (prior to next cycle) OV and labs in 4 weeks Advised to call with any questions or concerns. PAST MEDICAL HISTORY Diagnosis Date Anemia Anorexia nervosa Bowel wall thickening Daily consumption of alcohol Depression Essential tremor Failure to thrive in adult Feeding difficulties Focal epilepsy (HCC) Gait abnormality Inflammation of colonic mucosa Intestinal obstruction (HCC) Migraine Migraine without aura 05/03/2019 Muscular deconditioning Perforated 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 with localized peritonitis, gangrene and abscess Psoas abscess, right (HCC) Seizures (HCC) Severe protein-calorie malnutrition (HCC) PAST SURGICAL HISTORY Procedure Laterality Date APPENDECTOMY 01/03/2024 COLONOSCOPY DIAGNOSTIC polyp EXPLORATORY OF ABDOMEN 09/19/2023 ROCIO DRAIN TO BULB SUCTION 09/01/2023 for acute 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 with perforation, localized peritonitis, and gangrene. FAMILY HISTORY Problem Relation Age of Onset Lung Cancer Mother Prostate Cancer Father Melanoma Sister No Known Problems Sister No Known Problems Sister No Known Problems Brother No Known Problems Brother No Known Problems Maternal Grandmother No Known Problems Maternal Grandfather Breast Cancer Paternal Grandmother No Known Problems Paternal Grandfather Anesthesia Problems No Family History Colon Cancer No Family History Social History Tobacco Use Smoking status: Former Current packs/day: 0.00 Average packs/day: 1 pack/day for 18.1 years (18.1 ttl pk-yrs) Types: Cigarettes Start date: 1977 Quit date: 1995 Years since quittin.2 Passive exposure: Past Smokeless tobacco: Never Vaping Use Vaping status: Some Days Substance Use Topics Alcohol use: Not Currently Comment: sober, quit 3 years ago Drug use: Not Currently Types: Marijuana Comment: unknown ALLERGIES: ALLERGIES Allergen Reactions Erythromycin Unknown Azithromycin Unknown CURRENT OUTPATIENT MEDICATIONS: amoxicillin (AMOXIL) 500 mg capsule Take 500 mg by mouth three times a day. capecitabine (XELODA) 500 mg tablet Take 3 tablets (1500 mg) by mouth in the morning and 2 tablets (1000 mg) in the evening for 14 days on and 7 days off. Take with food ondansetron orally disintegrating (ZOFRAN ODT) 4 mg disintegrating tablet Take 1 tablet by mouth every 8 hours as needed for nausea/vomiting. potassium chloride ER (KLOR-CON) 20 mEq tablet Take 1 tablet by mouth two times a day for 7 days, THEN 1 tablet once daily. ondansetron (ZOFRAN) 4 mg tablet Take 1 tablet by mouth two times a day as needed for nausea/vomiting. FOR NAUSEA methocarbamol (ROBAXIN) 500 mg tablet Take 1 tablet by mouth two times a day as needed (muscle spasms). HOLD if lighted or dizzy acetaminophen (TYLENOL EXTRA STRENGTH) 500 mg tablet Take 1-2 tablets by mouth every 6 hours as needed for pain. busPIRone (BUSPAR) 7.5 mg tablet Take 7.5 mg by mouth once daily. alendronate (FOSAMAX) 70 mg tablet Take 70 mg by mouth one time a week. sertraline (ZOLOFT) 50 mg tablet Take 50 mg by mouth once daily. divalproex ER (DEPAKOTE ER) 250 mg 24 hr tablet Take 2 tablets by mouth two times a day. Food Supplement, Lactose-Free (ENSURE CLEAR) liqd Take 237 mL by mouth daily after lunch. PM Snack Food Supplement, Lactose-Free (PROMOTE, OSMOLITE, TWO DILLAN, ENSURE PLUS, ENLIVE) liqd Take 237 mL bymouth three times a day with meals. (Patient not taking: Reported on 05/06/2024) Food Supplement, Lactose-Free (ENSURE ACTIVE HIGH PROTEIN) liqd Take 237 mL by mouth three times a day with meals. (Patient not taking: Reported on 04/16/2024) Food Supplement, Lactose-Free (ENSURE HIGH PROTEIN) liqd Take 237 mL by mouth two times a day. 2 times daily between meals REVIEW OF SYSTEMS: GENERAL: No fever, night sweats, weight loss or malaise. All other reviewed and negative other than HPI. All systems reviewed on 06/17/2024 with pertinent positives and negatives as outlined in the interval history. PHYSICAL EXAMINATION: VITAL SIGNS: BP 94/63 Pulse 107 Temp (Src) 96.5 (Temporal) Wt 90 lb 8 oz (41.1kg) SpO2 99% GENERAL APPEARANCE: Well appearing, in no acute distress, alert and oriented x3, thin. CHEST: Clear HEART: RRR ABDOMEN: soft, non tender EXTREMITIES: no edema I have performed the physical exam today (06/17/2024) and have edited the note to correlate with current findings. Adrienne Bahena APRN.BALL THREAD MACHINE TENDER I spent a total of 30 minutes on the date of the service which included preparing to see the patient, [id number] patient care, completing clinical documentation, obtaining and/or reviewing separately obtained history, and counseling and educating the patient/family/caregiver. Portions of this note including HPI, ROS, impression/plan may have been copied forward as to provide important historical information essential in contributing to medical decision making. Documentation has been reviewed and edited as necessary to support clinical decision making for today's visit and to reflect my own independent evaluation of this patient. documented in this encounterSt. [facility]03-20-2025 Note[facility]03-05-2025 Telephone encounter Note* Telephone Encounter - Bryanna Gonzalez LPN - 05/29/2024 4:19 PM EST Advised patient to contact her PCP for medication. Patient agreeable. Bryanna Gonzalez LPN [facility]03-05-2025 Miscellaneous Notes* Telephone Encounter - Bryanna Gonzalez LPN - 05/29/2024 4:19 PM EST Advised patient to contact her PCP for medication. Patient agreeable. Bryanna Gonzalez LPN * Telephone Encounter - Mayda Weems - 05/29/2024 11:51 AM EST Pt stopped in and is requesting a persription for Valium for a dental appt on 06/18 for anxity, states it is very expensive to get it from her dentist. Please adise. Mayda Weems documented in this encounterSt. Charles Hospital03-05-2025 Telephone encounter Note * Telephone Encounter - Mayda Weems - 05/29/2024 11:51 AM EST Pt stopped in and is requesting a persription for Valium for a dental appt on 06/18 for anxity, states it is very expensive to get it from her dentist. Please adise. Mayda Weems [facility]03-04-2025 Telephone encounter Note* Telephone Encounter - Kate Castillo RN - 05/28/2024 9:35 AM EST Form faxed to [facility] and then sent to scanning. Judy Castillo RN [facility] Work Phone: [phone]) 154-473603-04-2025 Miscellaneous Notes* Telephone Encounter - Kate Castillo RN - 05/28/2024 9:35 AM EST Form faxed to [facility] and then sent to scanning. Judy Castillo RN * Telephone Encounter - Kate Castillo RN - 05/27/2024 3:24 PM EST Dillan Crowder, aware of message. questions answered. She is starting her next cycle 05/29/24. She is aware she needs a CBC prior to procedure. She had labs today, reviewed results with her. She states she is not compliant with her potassium pills. She will try to be more compliant but c/o that they are really big pills to swallow. Reviewed upcoming appointments. Judy Castillo RN * Telephone Encounter - Kate Castillo RN - 05/24/2024 1:[address] Poole received form for dental clearance for tooth extraction. Patient ok to have extraction at the end of week for Xeloda and obtain a CBC prior also. This will be faxed back to [facility]. Attempted to call patient to advise above. No answer. Message left with general message regarding above and to call back in to discuss. Judy Castillo RN documented in this encounterSt. [facility]03-03-2025 Telephone encounter Note * Telephone Encounter - Kate Castillo RN - 05/27/2024 3:24 PM EST Dillan Crowder, aware of message. questions answered. She is starting her next cycle 05/29/24. She is aware she needs a CBC prior to procedure. She had labs today, reviewed results with her. She states she is not compliant with her potassium pills. She will try to be more compliant but c/o that they are really big pills to swallow. Reviewed upcoming appointments. Judy Castillo RN [facility]02-28-2025 Telephone encounter Note* Telephone Encounter - Kate Castillo RN - 05/24/2024 1:[address] Poole received form for dental clearance for tooth extraction. Patient ok to have extraction at the end of week for Xeloda and obtain a CBC prior also. This will be faxed back to [facility]. Attempted to call patient to advise above. No answer. Message left with general message regarding above and to call back in to discuss. Judy Castillo RN [facility]02-26-2025 History of Present illness Narrative* Jayjay (Fender Finisher)Tete - 05/22/2024 1:09 PM EST [facility] Specialty Refill Assessment Medication(s): capecitabine Patient's current medication list and adherence status to current therapy were reviewed by Specialty Pharmacy clinical pharmacist to identify any new drug interactions or non-compliance to therapy. Therapy continues to be appropriate for disease, patient response, and medical condition. Verification of therapeutic benefit and effectiveness with current therapy was completed. Adverse events, barriers in adherence, and side effects were assessed and addressed if applicable. Will proceed with refill with no changes in therapy - patient progressing towards achieving therapeutic goals based on medication- specific laboratory parameters, disease state markers and outcomes. Office/provider notes have been reviewed prior to dispensing the medication. Horse Racing Manager Assessment Patient confirmed: Yes Med/dose confirmed: Yes Supplies needed: No supplies needed Missed doses: No Estimated days supply on hand: 0 Next cycle/dose due: 05/29/24 Copay amount: 7.68 Copay form of payment: Credit card on file Payment confirmed: Yes Delivery method: FedEx Signature required: Waived on patient request Delivery address: [address] [place] [place] [id number] Delivery date: 05/28/24 Questions or concerns for the pharmacist?: No Did you have any side effects believed to be related to this medication, that resulted in hospitalization?: No Current Outpatient Medications on File Prior to Visit Medication Sig capecitabine (XELODA) 500 mg tablet Take 3 tablets (1500 mg) by mouth in the morning and 2 tablets (1000 mg) in the evening for 14 days on and 7 days off. Take with food ondansetron orally disintegrating (ZOFRAN ODT) 4 mg disintegrating tablet Take 1 tablet by mouth every 8 hours as needed for nausea/vomiting. potassium chloride ER (KLOR-CON) 20 mEq tablet Take 1 tablet by mouth two times a day for 7 days, THEN 1 tablet once daily. ondansetron (ZOFRAN) 4 mg tablet Take 1 tablet by mouth two times a day as needed for nausea/vomiting. FOR NAUSEA methocarbamol (ROBAXIN) 500 mg tablet Take 1 tablet by mouth two times a day as needed (muscle spasms). HOLD if lighted or dizzy Food Supplement, Lactose-Free (PROMOTE, OSMOLITE, TWO DILLAN, ENSURE PLUS, ENLIVE) liqd Take 237 mL bymouth three times a day with meals. (Patient not taking: Reported on 05/06/2024) acetaminophen (TYLENOL EXTRA STRENGTH) 500 mg tablet Take 1-2 tablets by mouth every 6 hours as needed for pain. busPIRone (BUSPAR) 7.5 mg tablet Take 7.5 mg by mouth once daily. alendronate (FOSAMAX) 70 mg tablet Take 70 mg by mouth one time a week. sertraline (ZOLOFT) 50 mg tablet Take 50 mg by mouth once daily. divalproex ER (DEPAKOTE ER) 250 mg 24 hr tablet Take 2 tablets by mouth two times a day. No current facility-administered medications on file prior to visit. [facility] SPECIALTY CLINICAL ASSESSMENT - HEMATOLOGY ONCOLOGY V6: Assessment to use: Refill Date of influenza vaccination reminder: 02/07/2024 Date of most recent vaccination assessment: 02/07/2024 Treatment Plan Information: Dx: Stage II colon cancer with high risk features, MMR proficient Tx Hx: surgery Tx Plan: adjuvant capecitabine Medication: capecitabine Dose: CrCl 87ml/min, 1500mg / 1.27z3=7293 mg/m2 Sig: Take 3 tablets (1,500 mg) by mouth two times a day with food for 14 days on, followed by 7 days off 05/30/24-1500mg am, 1000mg pm Admin/Storage: Take within 30 minutes of a meal, swallow whole. hazardous A/E: Bone marrow suppression,derm toxicity (STJ, HFS), GI toxicity(N/V/D), stomatitis, hepatoxicity, fatigue,asthenia, edema, D/I: No major Lab/Monitoring: Renal function-baseline Renal/hepatic function, CBC-during therapy Vaccine Assessment: Patient is overdue for some routine vaccinations, enrolled in [employer] reminders. Est. Tx Plan Start Date: No information available Estimated Start Date Info: Per Dr. Poole's discretion Est. Estimated Treatment Duration: ~3-6 months, monitor Tete Ro (Friend[employer]) documented in this encounterSt. [facility] Hospital02-26-2025 NoteC[facility]02-26-2025 [facility]02-17-2025 Instructions* Patient Instructions* Fe Edmond APRN.BALL THREAD MACHINE TENDER - 05/13/2024 6:45 PM EST Images from the original note were not included. Plan for follow-up: Repeat imaging at 12 months from recent scan. Frequently Asked Questions: How common are lung nodules? Nodules are found in up to half of adults who get a chest x-ray or CT scan. Do nodules cause any symptoms? In general, small nodules don t cause any noticeable problems. They re too small to cause pain or breathing problems. Should I worry that I have a nodule? Most nodules are not cancer, but for a small number of people the nodule may negative turner apprentice to be an early cancer. Your doctor can tell if your nodule is lung cancer by: Seeing how it looks on the CT scan. Seeing whether it grows over time. A nodule that grows larger over time is a sign that it could be a cancer. Taking a sample of the nodule with a needle or surgery. Most people with a nodule will NOT need to have this test. What is the chance that the nodule is an early lung cancer? Fewer than 5% of all nodules negative turner apprentice to be cancer What if my nodule is lung cancer? Even if a nodule turns out to be lung cancer, it is likely to be an early stage lung cancer. Peoplewith early stage lung cancer that is treated are less likely to than people who are diagnosed at a later stage when the cancer has started to cause symptoms. What will happen next? Your healthcare team will probably recommend getting more CT scans to keep a close eye on the nodule to see if it changes. We call this active surveillance. ? If a nodule is not cancer, it usually won t grow. If the nodule doesn t grow over a 2-year period, it is very unlikely to be cancer. Most of the time, it is safe to stop watching nodules if there is no growth over a 2-year period. ? On the other hand, if the nodule is getting bigger, it should be looked at more closely to see ifit is lung cancer. Nodules can be viewed more closely using different radiology studies or by biopsy (using a needle or surgery to take a sample of the nodule to look at under a microscope). Your healthcare team will determine which is best for you. Why shouldn t I get a biopsy now? ? A biopsy means removing a piece of your lung in order to look at it under a microscope. Biopsies are usually not recommended when nodules are small because it is very difficult to biopsy them safely. ? Doing a biopsy when a nodule is small can cause harm such as collapse of the lung, bleeding, or infection. Is it really safe to wait for the next CT scan? Most cancers grow fairly slowly, and it takes several months for them to get bigger. So even if thenodule is lung cancer, it will likely still be small in a few months. Even if the nodule is lung cancer that is growing, there is a very good chance that surgery or radiation will cure you. Waiting a few months for the next CT scan is very safe and should not affect the treatment you receive or your chances for cure if the nodule turns out to be cancer. How does my clinician decide when to do the next CT scan? There are several guidelines for how to decide when to get the next CT scan. These guidelines are based on the chance the nodule is lung cancer and how big the nodule might be at the time of the next scan. Your healthcare provider will determine the best time for your next CT scan based on these guidelines. Your healthcare provider may choose to discuss the CT results with other specialists to determine the best plan for you. What if I m a smoker? Quitting now will decrease your chance of getting lung cancer in the future, as well as many other serious health problems like emphysema and heart disease. Some people think that if they already have lung cancer, they might as well keep smoking. THAT IS WRONG. documented in this encounterSt. [facility] Hospital02-17-2025 NoteC[facility]02-17-2025 History of Present illness Narrative* Fe Edmond APRN.CNP - 05/13/2024 11:48 AM EST Images from the original note were not included. [facility] INCIDENTAL LUNG NODULE PROGRAM (Follow Up) Impression / Recommendations Lung Nodule: Stable RUL nodule. She has ADAM nodule that is stable and inflammatory bronchiolitis that is improving. Recommended 12 month follow up. Red flag symptoms discussed and pt is to reach out if she experiences any. She is also under close monitoring with oncology and they may do CT monitoring as well. Plan is subject to change pending any further testing. Patient agrees. 2. Nicotine Dependence, Former: Continue to abstain from smoking cigarettes. 3. Adenocarcinoma of cecum (HCC) Continue with oncology care. Follow Up Diagnosis: Lung Nodule Recommendation: CT Scan Follow up Date: 05/19/2025 Follow-Up Scheduled: Yes Pulmonary Follow-Up Type: Lung Nodule Surveillance Lung Nodule Program Location: [facility] History of Present Illness Lakesha Koch is a 64 year old female with a pertinent past medical history significant for History of tobacco abuse: (18 pack-years, 29 years since quit) who is being seen as a follow up for evaluation of a lung nodule(s). She is currently in treatment for cecum carcinoma. Oncologist prefers for pt to be followed through lung nodule clinic for lung nodules. Lakesha Koch had a CT Chest on 05/03/2024 for the indication of lung nodules. >5 nodules were detected Incidentally. The nodule of concern is a Solid 8 mm nodule with a Spiculated in the Right upper lobe of the lung. Prior imaging: (Yes What type of prior imaging? CT Scan 01/26/2024, and 09/16/2023 Was the nodule of concern seen on prior imaging? Yes Has the nodule of concern remained stable? Stable) Respiratory symptoms include: SOB: No Chest tightness: No Coughing: No Hemoptysis: No Wheezing: No Fever/Chills: No Recent Respiratory Infection: No Unintentional weight loss: No, weight loss at time of diagnosis of adenocarcinoma of cecum, but hasstabilized. She has no appetite and no taste due to chemo. Last 6 Encounter Wt Readings: Date: Wt: 05/13/2024 43.2 kg (95 lb 3.2 oz) 05/06/2024 42.4 kg (93 lb 8 oz) 04/16/2024 41.7 kg (92 lb) 04/08/2024 42.3 kg (93 lb 4.1 oz) 03/07/2024 43.8 kg (96 lb 9 oz) 02/05/2024 40.4 kg (89 lb 1.1 oz) Modified Medical Research [place] Dyspnea Scale (MMRC) I only get breathless with strenous exercise 0 Problem List, History, Medications and allergies have been reviewed from the [facility] electronic medical record and any appropriate up-dates have been made. Physical Exam Pulse 97 Ht 162.6 cm (5' 4) Wt 43.2 kg (95 lb 3.2 oz) SpO2 97% BMI 16.34 kg/m General Appearance: alert, in no acute distress, and Thin. Lungs: Lungs clear to auscultation. No wheezing, rhonchi, rales.. Heart: RRR without murmur, gallop, or rubs. No ectopy. Neurologic: Oriented X 3. Diagnostic Data I have personally visualized, reviewed and analyzed the findings on pulmonary function testing and radiographs. Stable RUL nodule 05/03/2024, 01/26/2024 and 09/16/2023 CT Chest Stable ADAM nodule Last CT/CTA Chest/Lungs CT CHEST WO IVCON Exam End: 05/03/2024 11:36 AM (Final result) Narrative: * * *Final Report* * * DATE OF EXAM: May 03 2024 11:36AM [facility] [id number] - CT CHEST WO IVCON / PROCEDURE REASON: Lung nodules * * * * Physician Interpretation * * * * EXAMINATION: CHEST CT WITHOUT CONTRAST CLINICAL HISTORY: Lung nodules Technique: Spiral CT acquisition of the chest from the thoracic inlet to the upper abdomen without contrast. MQ: [id number] CT Radiation dose: Integrated Dose-length product (DLP) for this visit = 118 mGy*cm CT Dose Reduction Employed: Automated exposure control(AEC) and iterative recon Comparison: 01/26/2024 RESULT: Limitations: None. Lines, tubes, and devices: Streak artifact from left shoulder arthroplasty limits evaluation of extreme left upper chest. Lung parenchyma and airways: Atelectasis versus scarring is seen within the lingula and anterior segment left upper lobe, with regions of mucoid impaction and tree-in-bud type nodularity seen within predominantly the lingula and right middle lobe, suggesting atypical pneumonia. Tree-in-bud type pulmonary nodules within the left lower lobe have nearly resolved interval, suggesting nearly resolved infectious or inflammatory disease. There is a stable spiculated nodule seen within the posterior segment of the right upper lobe, measuring approximately 8 mm (series 5, image #56). Continued interval surveillance recommended. There is mild biapical fibrosis, left greater than right. There is no pneumothorax or endobronchial lesion. There is emphysema, with mild, diffuse bronchiectasis. Pleural space: There is no pleural effusion. Lower neck, lymph nodes, and mediastinum: Stable prominent mediastinal lymph nodes are likely reactive. No lucrecia axillary or hilar lymphadenopathy is identified. Heart, pericardium, and thoracic vessels: Atherosclerotic calcifications are present within the thoracic aorta and predominantly the right coronary artery. The heart is normal in size. There is a stable trace pericardial effusion. Again seen are calcifications within the left breast. Bones and soft tissues: There is scoliosis and multilevel degenerative change seen within the visualized spine. 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 Patient is status post left shoulder arthroplasty. No destructive bony lesion. Prominent Schmorl node is seen involving the superior endplate of the L2 vertebral body. A hemangioma is seen within the T9 vertebral body. Stable mild anterior wedging of the T7 vertebral body. Upper abdomen: Contents are seen within the stomach. There is a stable 3.2 x 2.3 cm exophytic lesion arising upper pole the right kidney, measuring above water attenuation (series 5, image #[id number]). Although this may relate to a hemorrhagic or proteinaceous cyst, continued interval surveillance is recommended. Impression: IMPRESSION: 1. Atelectasis versus scarring is seen within the lingula and anterior segment left upper lobe, with regions of mucoid impaction and tree-in-bud type nodularity seen within predominantly the lingula and right middle lobe, suggesting atypical pneumonia. Tree-in-bud type pulmonary nodules within the left lower lobe have nearly resolved in the interval, suggesting nearly resolved infectious or inflammatory disease. 2. Stable spiculated nodule within the posterior segment of the right upper lobe, measuring approximately 8 mm. Continued interval surveillance recommended. 3. Emphysema, with mild, diffuse bronchiectasis. 4. Stable prominent mediastinal lymph nodes, likely reactive. 5. Stable exophytic lesion arising from the upper pole of the right kidney, measuring above water attenuation. Although this may relate to a hemorrhagic or proteinaceous cyst, continued interval surveillance is recommended. Healthcare Translator: BRENTON Transcribe Date/Time: May 06 2024 6:25A Dictated by : BRIANA PETIT MD This examination was interpreted and the report reviewed and electronically signed by: BRIANA PETIT MD on May 06 2024 4:28PM EST Impression / Recommendations To optimize physician communication via the electronic health record, the Impression & Recommendations section has been placed at the beginning of this note. Fe Edmond APRN.[facility] May 13, 2024 11:48 AM documented in this encounterSt[facility] History of Present illness Narrative* Marisa Monaco HUC - 05/07/2024 12:04 PM EST Follow Up Diagnosis: Lung Nodule Recommendation: CT Scan Follow up Date: 05/13/2024 Follow-Up Scheduled: Yes Pulmonary Follow-Up Type: Lung Nodule Surveillance Enrolled in Lung Nodule program: Yes Lung Nodule Program Location: [facility] CT completed documented in this encounterSt. [facility]02[facility] History of Present illness Narrative* Adrienne Bahena - 05/06/2024 11:30 AM EST Lakesha Koch 1960 05/06/2024 HISTORY OF PRESENT ILLNESS: Lakesha Koch is a 63 year old female July 2023, had large bowel perforation with obstruction, had a drain in place, had a post obstruction infection which persisted. Home a few weeks now. Slowly getting back on feet. Appetite good but things taste funny, so intake not optimal, weight down. We and family in attendance by phone and in person discussed recent dx of right colon cancer, pT4N0, grade 2, but prior obstruction and lymphatic invasion render higher risk of recurrence. We discussed the role of adjuvant chemotherapy in reducing recurrence risk. As stage II her risks are fairly low, adjuvant chemo will reduce risks by approximately 5%. Interval Hx: Ms. Koch presents today for follow up prior to C4 of adjuvant xeloda. She reports feeling well today. Last cycle was much better. N/V/D have resolved with dose reduction. Denies new aches or pains. No neuropathy. Mild skin cracking to both thumbs. No redness or peeling however that has since resolved today. Encouraged frequent moisturizing. Continues working to improve intake. Difficulty due to taste changes. Wt is stable today. Occasional difficulty swallowing large pills. Denies recent illness. No new or worsening SOB, CP or palpitations. Denies fever. No new aches or pains. Denies PELLETIER, dizziness. CLINICAL IMPRESSION: Stage II colon cancer with high risk features. She is agreeable to doing adjuvant capecitabine, info give. RECOMMENDATION/PLAN: - Continue with capecitabine, tolerating better with dose reduction - Continue with 1500mg (3 tabs) in am and 1000mg (2tabs) in PM dose reduction with C3 for N/V/D. Ptacknowledged. - ODT zofran PRN - hypokalemia resolved today - Labs in 3 weeks (prior to next cycle) OV and labs in 6 weeks Advised to call with any questions or concerns. PAST MEDICAL HISTORY Diagnosis Date Anemia Anorexia nervosa Bowel wall thickening Daily consumption of alcohol Depression Essential tremor Failure to thrive in adult Feeding difficulties Focal epilepsy (HCC) Gait abnormality Inflammation of colonic mucosa Intestinal obstruction (HCC) Migraine Migraine without aura 05/03/2019 Muscular deconditioning Perforated 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 with localized peritonitis, gangrene and abscess Psoas abscess, right (HCC) Seizures (HCC) Severe protein-calorie malnutrition (HCC) PAST SURGICAL HISTORY Procedure Laterality Date APPENDECTOMY 01/03/2024 COLONOSCOPY DIAGNOSTIC polyp EXPLORATORY OF ABDOMEN 09/19/2023 ROCIO DRAIN TO BULB SUCTION 09/01/2023 for acute 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 with perforation, localized peritonitis, and gangrene. FAMILY HISTORY Problem Relation Age of Onset Lung Cancer Mother Prostate Cancer Father Melanoma Sister No Known Problems Sister No Known Problems Sister No Known Problems Brother No Known Problems Brother No Known Problems Maternal Grandmother No Known Problems Maternal Grandfather Breast Cancer Paternal Grandmother No Known Problems Paternal Grandfather Anesthesia Problems No Family History Colon Cancer No Family History Social History Tobacco Use Smoking status: Former Current packs/day: 0.00 Average packs/day: 1 pack/day for 18.1 years (18.1 ttl pk-yrs) Types: Cigarettes Start date: 1977 Quit date: 1995 Years since quittin.1 Passive exposure: Past Smokeless tobacco: Never Vaping Use Vaping status: Never Used Substance Use Topics Alcohol use: Not Currently Comment: sober, quit 3 years ago Drug use: Not Currently Types: Marijuana Comment: unknown ALLERGIES: ALLERGIES Allergen Reactions Erythromycin Unknown Azithromycin Unknown CURRENT OUTPATIENT MEDICATIONS: capecitabine (XELODA) 500 mg tablet Take 3 tablets (1500 mg) by mouth in the morning and 2 tablets (1000 mg) in the evening for 14 days on and 7 days off. Take with food ondansetron orally disintegrating (ZOFRAN ODT) 4 mg disintegrating tablet Take 1 tablet by mouth every 8 hours as needed for nausea/vomiting. potassium chloride ER (KLOR-CON) 20 mEq tablet Take 1 tablet by mouth two times a day for 7 days, THEN 1 tablet once daily. ondansetron (ZOFRAN) 4 mg tablet Take 1 tablet by mouth two times a day as needed for nausea/vomiting. FOR NAUSEA methocarbamol (ROBAXIN) 500 mg tablet Take 1 tablet by mouth two times a day as needed (muscle spasms). HOLD if lighted or dizzy acetaminophen (TYLENOL EXTRA STRENGTH) 500 mg tablet Take 1-2 tablets by mouth every 6 hours as needed for pain. busPIRone (BUSPAR) 7.5 mg tablet Take 7.5 mg by mouth once daily. alendronate (FOSAMAX) 70 mg tablet Take 70 mg by mouth one time a week. sertraline (ZOLOFT) 50 mg tablet Take 50 mg by mouth once daily. divalproex ER (DEPAKOTE ER) 250 mg 24 hr tablet Take 2 tablets by mouth two times a day. Food Supplement, Lactose-Free (PROMOTE, OSMOLITE, TWO DILLAN, ENSURE PLUS, ENLIVE) liqd Take 237 mL bymouth three times a day with meals. (Patient not taking: Reported on 05/06/2024) Food Supplement, Lactose-Free (ENSURE ACTIVE HIGH PROTEIN) liqd Take 237 mL by mouth three times a day with meals. (Patient not taking: Reported on 04/16/2024) Food Supplement, Lactose-Free (ENSURE HIGH PROTEIN) liqd Take 237 mL by mouth two times a day. 2 times daily between meals Food Supplement, Lactose-Free (ENSURE CLEAR) liqd Take 237 mL by mouth daily after lunch. PM Snack REVIEW OF SYSTEMS: GENERAL: No fever, night sweats, weight loss or malaise. All other reviewed and negative other than HPI. All systems reviewed on 05/06/2024 with pertinent positives and negatives as outlined in the interval history. PHYSICAL EXAMINATION: VITAL SIGNS: BP 88/52 Pulse 83 Temp (Src) 97.1 (Temporal) Wt 93 lb 8 oz (42.4kg) SpO2 100% GENERAL APPEARANCE: Well appearing, in no acute distress, alert and oriented x3, thin. CHEST: Clear HEART: RRR ABDOMEN: soft, non tender EXTREMITIES: no edema I have performed the physical exam today (05/06/2024) and have edited the note to correlate with current findings. Adrienne Bahena APRN.BALL THREAD MACHINE TENDER I spent a total of 20 minutes on the date of the service which included preparing to see the patient, [id number] patient care, completing clinical documentation, obtaining and/or reviewing separately obtained history, and counseling and educating the patient/family/caregiver. Portions of this note including HPI, ROS, impression/plan may have been copied forward as to provide important historical information essential in contributing to medical decision making. Documentation has been reviewed and edited as necessary to support clinical decision making for today's visit and to reflect my own independent evaluation of this patient. documented in this encounterSt. [facility]02-10-2025 NoteC[facility]02-07-2025 History of Present illness Narrative* Dulce Zhou RT(R) - 05/03/2024 11:00 AM EST Radiology Service Progress Note PATIENT NAME: Lakesha Koch DATE OF SERVICE: May 03, 2024 TIME: 2:45 PM PATIENT IDENTITY VERIFICATION COMPLETED USING TWO (2) IDENTIFIERS: Name and Date of confirmedby patient verbally. FALL SCREENING: Has the patient had 2 falls in the last year or 1 fall with injury or currently using an Ambulatory Assistive Device (Walker, Cane, Wheelchair, Crutches, etc.)? No PATIENT GENDER DATA: Assigned female at . status: : No status:NO. PATIENT RELEVANT IMPLANT DATA REVIEWED: Yes PATIENT PRESENTS WITH AN IMPLANTABLE OR ATTACHED CATERING SERVICE MANAGER: No RADIOLOGY DEPARTMENT: CT; Exam(s) Completed: Chest PERIPHERAL IV DATA: Not applicable SIGNED BY: RT Oscar(R) May 03, 2024 2:45 PM documented in this encounterSt. [facility]02-07-2025 NoteC[facility]2025 NoteC[facility]01-21-2025 History of Present illness Narrative* Adrienne Bahena - 04/16/2024 2:00 PM EST Lakesha Koch 1960 04/16/2024 HISTORY OF PRESENT ILLNESS: Lakesha Koch is a 63 year old female July 2023, had large bowel perforation with obstruction, had a drain in place, had a post obstruction infection which persisted. Home a few weeks now. Slowly getting back on feet. Appetite good but things taste funny, so intake not optimal, weight down. We and family in attendance by phone and in person discussed recent dx of right colon cancer, pT4N0, grade 2, but prior obstruction and lymphatic invasion render higher risk of recurrence. We discussed the role of adjuvant chemotherapy in reducing recurrence risk. As stage II her risks are fairly low, adjuvant chemo will reduce risks by approximately 5%. Interval Hx: Ms. Koch presents today for follow up prior to C3 of adjuvant xeloda. She reports feeling ok today. ED visit to [facility] last week for dehydration. N/V/D. She notes last two cycles she has more N/V towards the end of her second week on xeloda. Nausea daily about 2 hours after taking xeloda. This has improved some once she started taking antiemetics scheduled. Had more nausea with vomiting, several times last week. Zofran helped a little, did better with ODTin ED. Diarrhea. [place] dehydtrate Denies bleeding. No neuropathy. No peeling or cracking to hands. She notes feet were red and peeling however that has since resolved today. Still working to improve intake. Drinking 2 boosts per day. Nothing tastes like it should which has been making it difficult. Occasional difficulty swallowing large pills. Denies recent illness. No new or worsening SOB, CP or palpitations. Denies fever. No new aches or pains. Denies PELLETIER, dizziness. CLINICAL IMPRESSION: Stage II colon cancer with high risk features. She is agreeable to doing adjuvant capecitabine, info give. RECOMMENDATION/PLAN: - Continue with capecitabine, tolerating fair. Recent ED visit for N/V - dehydration. - Plan to Dose reduce to 1500mg (3 tabs) in am and 1000mg (2tabs) in PM for N/V/D. Pt acknowledged. - ODT zofran refilled. - Rx for K refilled, would recommend 20 meq BID for 1 week followed by 20 meq daily, can try with applesauce. - Labs and OV in about 3 weeks (prior to next cycle) Discussed plan with Dr. Poole and he is in agreement with current plan to reduce daily dose for tolerability. Advised to call with any questions or concerns. PAST MEDICAL HISTORY Diagnosis Date Anemia Anorexia nervosa Bowel wall thickening Daily consumption of alcohol Depression Essential tremor Failure to thrive in adult Feeding difficulties Focal epilepsy (HCC) Gait abnormality Inflammation of colonic mucosa Intestinal obstruction (HCC) Migraine Migraine without aura 05/03/2019 Muscular deconditioning Perforated 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 with localized peritonitis, gangrene and abscess Psoas abscess, right (HCC) Seizures (HCC) Severe protein-calorie malnutrition (HCC) PAST SURGICAL HISTORY Procedure Laterality Date APPENDECTOMY 01/03/2024 COLONOSCOPY DIAGNOSTIC polyp EXPLORATORY OF ABDOMEN 09/19/2023 ROCIO DRAIN TO BULB SUCTION 09/01/2023 for acute 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 with perforation, localized peritonitis, and gangrene. FAMILY HISTORY Problem Relation Age of Onset Lung Cancer Mother Prostate Cancer Father Melanoma Sister No Known Problems Sister No Known Problems Sister No Known Problems Brother No Known Problems Brother No Known Problems Maternal Grandmother No Known Problems Maternal Grandfather Breast Cancer Paternal Grandmother No Known Problems Paternal Grandfather Anesthesia Problems No Family History Colon Cancer No Family History Social History Tobacco Use Smoking status: Former Current packs/day: 0.00 Average packs/day: 1 pack/day for 18.1 years (18.1 ttl pk-yrs) Types: Cigarettes Start date: 1977 Quit date: 1995 Years since quittin.0 Passive exposure: Past Smokeless tobacco: Never Vaping Use Vaping status: Never Used Substance Use Topics Alcohol use: Not Currently Comment: sober, quit 3 years ago Drug use: Not Currently Types: Marijuana Comment: unknown ALLERGIES: ALLERGIES Allergen Reactions Erythromycin Unknown Azithromycin Unknown CURRENT OUTPATIENT MEDICATIONS: ondansetron (ZOFRAN) 4 mg tablet Take 1 tablet by mouth two times a day as needed for nausea/vomiting. FOR NAUSEA methocarbamol (ROBAXIN) 500 mg tablet Take 1 tablet by mouth two times a day as needed (muscle spasms). HOLD if lighted or dizzy Food Supplement, Lactose-Free (PROMOTE, OSMOLITE, TWO DILLAN, ENSURE PLUS, ENLIVE) liqd Take 237 mL bymouth three times a day with meals. capecitabine (XELODA) 500 mg tablet Take 3 tablets (1,500 mg) by mouth two times a day with food for 14 days on, followed by 7 days off acetaminophen (TYLENOL EXTRA STRENGTH) 500 mg tablet Take 1-2 tablets by mouth every 6 hours as needed for pain. busPIRone (BUSPAR) 7.5 mg tablet Take 7.5 mg by mouth once daily. alendronate (FOSAMAX) 70 mg tablet Take 70 mg by mouth one time a week. sertraline (ZOLOFT) 50 mg tablet Take 50 mg by mouth once daily. divalproex ER (DEPAKOTE ER) 250 mg 24 hr tablet Take 2 tablets by mouth two times a day. ondansetron orally disintegrating (ZOFRAN ODT) 4 mg disintegrating tablet Take 1 tablet by mouth every 8 hours as needed for nausea/vomiting. potassium chloride ER (KLOR-CON) 20 mEq tablet Take 1 tablet by mouth two times a day for 7 days, THEN 1 tablet once daily. methocarbamol (ROBAXIN) 500 mg tablet Take 1 tablet by mouth three times a day for 20 days. Food Supplement, Lactose-Free (ENSURE ACTIVE HIGH PROTEIN) liqd Take 237 mL by mouth three times a day with meals. (Patient not taking: Reported on 04/16/2024) Food Supplement, Lactose-Free (ENSURE HIGH PROTEIN) liqd Take 237 mL by mouth two times a day. 2 times daily between meals Food Supplement, Lactose-Free (ENSURE CLEAR) liqd Take 237 mL by mouth daily after lunch. PM Snack REVIEW OF SYSTEMS: GENERAL: No fever, night sweats, weight loss or malaise. All other reviewed and negative other than HPI. All systems reviewed on 04/16/2024 with pertinent positives and negatives as outlined in the interval history. PHYSICAL EXAMINATION: VITAL SIGNS: BP 90/65 Pulse 95 Temp (Src) 98.6 (Temporal) Wt 92 lb (41.7kg) SpO2 96% GENERAL APPEARANCE: Well appearing, in no acute distress, alert and oriented x3, thin. CHEST: Clear HEART: RRR ABDOMEN: soft, non tender EXTREMITIES: no edema I have performed the physical exam today (04/16/2024) and have edited the note to correlate with current findings. Adrienne Bahena APRN.BALL THREAD MACHINE TENDER I spent a total of 30 minutes on the date of the service which included preparing to see the patient, [id number] patient care, completing clinical documentation, obtaining and/or reviewing separately obtained history, and counseling and educating the patient/family/caregiver. Portions of this note including HPI, ROS, impression/plan may have been copied forward as to provide important historical information essential in contributing to medical decision making. Documentation has been reviewed and edited as necessary to support clinical decision making for today's visit and to reflect my own independent evaluation of this patient. documented in this encounterSt. [facility]01-21-2025 NoteC[facility]01-16-2025 NoteC[facility]01-16-2025 History of Present illness Narrative* Tessa Spring MD - 04/11/2024 10:59 AM EST Images from the original note were not included. Established Patient Visit REASON FOR VISIT Follow up - CT results I have communicated my name and active licensure. The patient's identity and physical location wereverified at the time of this visit. Either the patient or their legal sales and marketing representative has been informed of the risks and benefits of -- and alternatives to -- treatment through a remote evaluation andconsents to proceed with the evaluation remotely. History of Present Illness: Lakesha Koch is a 64 year old female who was admitted to an outside hospital in August 2023 after af[place] and was found to have signs of perforated 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. The patient states she was planned forappendectomy which never happened. Instead, she had a percutaneous drain placed in the collection and was discharged home on a long course of IV antibiotics. The patient also states there was no clear plan for an interval appendectomy at that time. During her time at home she experienced several episodes of abdominal pain and nausea which required a visit to [facility] where she continued to receive conservative management with nondenominational of bowel function. On follow-up visits, the drain was managed expectantly and was eventually removed a month ago. During this course, the patient experienced significant failure to thrive and weight loss. She eventually underwent an ileocecectomy with fl on 01/04/2024 that showed the following on pathology: She recovered well from surgery and currently follows with medical oncology who recommended adjuvant capecitabine. She is on the intended treatment with some side effects but generally tolerable. She recently developed some recurrent right lower quadrant abdominal discomfort similar but less intense to her previous pain. The pain is 3 out of 10 in severity and occurs infrequent times during the day but does not interfere with her p.o. intake or bowel habits. She denies fevers or chills or nausea or vomiting. We investigated this pain with a CT that showed the following: CT ABD/PEL W IVCON 03/15/2024: Clinically she reports feeling well. Her pain is very controlled and almost completely resolved. She is having difficulty swallowing the Xeloda pills which also cause some nausea. She was in the ED two days ago with vomiting and dehydration and electrolyte imbalance. Today she feels better. Weight is stable to somewhat decreased (around 93 lbs). FUNCTIONAL STATUS: Climb a flight of stairs or walk up a hill (5.50 METs) PAST MEDICAL HISTORY Diagnosis Date Anemia Anorexia nervosa Bowel wall thickening Daily consumption of alcohol Depression Essential tremor Failure to thrive in adult Feeding difficulties Focal epilepsy (HCC) Gait abnormality Inflammation of colonic mucosa Intestinal obstruction (HCC) Migraine Migraine without aura 05/03/2019 Muscular deconditioning Perforated 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 with localized peritonitis, gangrene and abscess Psoas abscess, right (HCC) Seizures (HCC) Severe protein-calorie malnutrition (HCC) PAST SURGICAL HISTORY Procedure Laterality Date APPENDECTOMY 01/03/2024 COLONOSCOPY DIAGNOSTIC polyp EXPLORATORY OF ABDOMEN 09/19/2023 ROCIO DRAIN TO BULB SUCTION 09/01/2023 for acute 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 with perforation, localized peritonitis, and gangrene. FAMILY HISTORY Problem Relation Age of Onset Lung Cancer Mother Prostate Cancer Father Melanoma Sister No Known Problems Sister No Known Problems Sister No Known Problems Brother No Known Problems Brother No Known Problems Maternal Grandmother No Known Problems Maternal Grandfather Breast Cancer Paternal Grandmother No Known Problems Paternal Grandfather Anesthesia Problems No Family History Colon Cancer No Family History Social History Tobacco Use Smoking status: Former Current packs/day: 0.00 Average packs/day: 1 pack/day for 18.1 years (18.1 ttl pk-yrs) Types: Cigarettes Start date: 1977 Quit date: 1995 Years since quittin.0 Passive exposure: Past Smokeless tobacco: Never Vaping Use Vaping status: Never Used Substance Use Topics Alcohol use: Not Currently Comment: sober, quit 3 years ago Drug use: Not Currently Types: Marijuana Comment: unknown MEDICATIONS Current Outpatient Medications Medication Sig Dispense Refill methocarbamol (ROBAXIN) 500 mg tablet Take 1 tablet by mouth three times a day for 20 days. 60 tablet 0 potassium chloride SR (MICRO-K) 10 mEq CR capsule Take 2 capsules by mouth every 12 hours. ondansetron (ZOFRAN) 4 mg tablet Take 1 tablet by mouth two times a day as needed for nausea/vomiting. FOR NAUSEA 30 tablet 2 methocarbamol (ROBAXIN) 500 mg tablet Take 1 tablet by mouth two times a day as needed (muscle spasms). HOLD if lighted or dizzy 12 tablet 0 Food Supplement, Lactose-Free (PROMOTE, OSMOLITE, TWO DILLAN, ENSURE PLUS, ENLIVE) liqd Take 237 mL bymouth three times a day with meals. 3000 mL 11 capecitabine (XELODA) 500 mg tablet Take 3 tablets (1,500 mg) by mouth two times a day with food for 14 days on, followed by 7 days off 84 tablet 7 acetaminophen (TYLENOL EXTRA STRENGTH) 500 mg tablet Take 1-2 tablets by mouth every 6 hours as needed for pain. busPIRone (BUSPAR) 7.5 mg tablet Take 7.5 mg by mouth once daily. alendronate (FOSAMAX) 70 mg tablet Take 70 mg by mouth one time a week. sertraline (ZOLOFT) 50 mg tablet Take 50 mg by mouth once daily. divalproex ER (DEPAKOTE ER) 250 mg 24 hr tablet Take 2 tablets by mouth two times a day. 360 tablet1 amoxicillin-clavulanate potassium (AUGMENTIN) 875-125 mg per tablet Take 1 tablet by mouth every 12hours. (Patient not taking: Reported on 01/19/2024) Food Supplement, Lactose-Free (ENSURE ACTIVE HIGH PROTEIN) liqd Take 237 mL by mouth three times a day with meals. 67130 mL 0 Food Supplement, Lactose-Free (ENSURE HIGH PROTEIN) liqd Take 237 mL by mouth two times a day. 2 times daily between meals 38908 mL 0 Food Supplement, Lactose-Free (ENSURE CLEAR) liqd Take 237 mL by mouth daily after lunch. PM Snack 7110 mL 0 No current facility-administered medications for this visit. CURRENT ALLERGIES ALLERGIES Allergen Reactions Erythromycin Unknown Azithromycin Unknown REVIEW OF SYSTEMS PAIN ASSESSMENT: General: Weight relatively stable 93 lbs Neuro: Seizures on Depakote Respiratory: No history of current cough or dyspnea, or pneumonia in the past 6 weeks. No history of respiratory/pulmonary symptoms or problems Cardiovascular: No history of HTN requiring medication, no history of angina, CHF, MS, cardiac surgery or stents. Denies rest pain, gangrene or revascularization/amputation for PVD. No history of cardiovascular symptoms or problems. GI: See HPI : No history of UTI in past 6 weeks. No history of renal failure. Not currently on or requiring dialysis. No history of symptoms or problems. Endocrine: No history of diabetes. Has not taken steroids within the past 30 days. No history of endocrinological symptoms or problems. Hematology: Iron deficiency anemia due to malnutrition and long hospitalization Oncology: No history of CA metastasis, chemo within 30 days, or radiotherapy within 90 days. Has not lost 10% of body wt in 6 months. No history of oncological symptoms or problems. Psych: No history of psychiatric symptoms or problems. Musculoskeletal: Negative for joint pain or swelling, back pain or muscle pain. Skin: Negative for lesions, rash and itching. Anemia: No PHYSICAL EXAMINATION There were no vitals taken for this visit. This consult was conducted via phone. No physical exam. ASSESSMENT 64-year-old female status post admission in August 2023 for suspected 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 that was managed for a long-term with drain and antibiotics. 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 She returned to clinic with recurrent RLQ pain that was investigated with a CT that showed a small 2.7 cm fluid collection near the ileopsoas muscle, no residual or recurrent disease. RECOMMENDATION I explained the CT findings to the patient. The fluid collection is too small to drain and is likely to resolve spontaneously with time. I did not recommend any intervention at this point and no antibiotics since the symptoms are spontaneously improving. We will continue to watch it with the scheduled surveillance CT scans every 3 months. I renewed the Robaxin prescription for mild residual spastic pain around the incision. Medical Decision Making: Problems: Moderate: Acute illness with systemic symptoms Data: Unique source(s) for external note(s) reviewed: 2 Unique test result(s) reviewed: 1 Unique test(s) ordered: 1 Assessment requiring an independent historian(s) Independent interpretation of test from other physician/QHCP Risk: Moderate: Drug management Medical Decision Making Level: 4 - Moderate Tessa Spring MD [facility] April 11, 2024 * David Velazquez - 04/11/2024 10:30 AM EST New/Est pt: Est Reason for apt: 03/15 CT f/u, reassess RLQ abd pain Brief Summary: Surgery 01/03/2024: Diagnostic laparoscopy Exploratory laparotomy Drainage of intraabdominal abscess Ileocecectomy End-to-side ileo-ascending hand sawn anastomosis Bilateral TAP blocks (transversus abdominis block with guidance) 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 CT Chest was ordered to f/u on lung nodule. Medical Hx: Anemia, Depression, Failure to thrive, Seizures Surgical Hx: Percutaneous Drain Placement for perf appendix (08/2023) Imaging: CT ABD/PEL 03/15/2024: IMPRESSION: The previously-seen inflammatory changes of the right lower quadrant are significantly improved. However, a multiloculated 2.9 x 2.6 cm fluid collection with a thick peripheral rind within the iliopsoas persists and is concerning for residual abscess. FINDINGS: LOWER CHEST: No significant abnormality. HEPATOBILIARY: The liver and gallbladder are normal in appearance. No biliary ductal dilatation. SPLEEN, PANCREAS, ADRENAL GLANDS: Within normal limits. KIDNEYS, URETERS, BLADDER: Symmetric parenchymal enhancement with no obstructing calculus or hydronephrosis. A small cyst of the left upper pole is stable. Ureters and bladder within normal limits. UTERUS, ADNEXA: The retroflexed uterus is unremarkable. No adnexal mass. BOWEL: No evidence of obstruction. Postprandial stomach noted. There is mild circumferential wall thickening of the colon which is likely secondary to underdistention. PERITONEAL/EXTRAPERITONEAL SPACE: The previously-seen inflammatory changes of the right lower quadrant are significantly improved, however, a 2.9 x 2.6 cm loculated fluid collection with a thick peripheral rind within the iliopsoas musculature persists (5:88). LYMPH NODES: No adenopathy. VASCULAR: Grossly unremarkable. ABDOMINAL WALL: Free of hernias. MUSCULOSKELETAL: No acute osseous abnormality. Multilevel degenerative disease of the thoracolumbar spine is noted. CT ABD/PEL W IVCON (Order #[id number]) on 03/19/2024 - Order Result History Report documented in this encounterSt[facility] History of Present illness Narrative* Zorzi (Fender Finisher)Tete - 04/10/2024 5:24 PM EST [facility] Specialty Refill Assessment Medication(s): capecitabine Patient's current medication list and adherence status to current therapy were reviewed by Specialty Pharmacy clinical pharmacist to identify any new drug interactions or non-compliance to therapy. Therapy continues to be appropriate for disease, patient response, and medical condition. Verification of therapeutic benefit and effectiveness with current therapy was completed. Adverse events, barriers in adherence, and side effects were assessed and addressed if applicable. Will proceed with refill with no changes in therapy - patient progressing towards achieving therapeutic goals based on medication- specific laboratory parameters, disease state markers and outcomes. Office/provider notes have been reviewed prior to dispensing the medication. Horse Racing Manager Assessment Patient confirmed: Yes Med/dose confirmed: Yes Supplies needed: No supplies needed Missed doses: Yes Count of missed doses: 4 Reason for missed doses: she was nauseated Estimated days supply on hand: 3 Next cycle/dose due: 04/17/24 Copay amount: 44.8 Copay form of payment: Credit card on file Payment confirmed: Yes Delivery method: FedEx Signature required: Waived on patient request Delivery address: [address] [place] [place] [id number] Delivery date: 04/16/24 Questions or concerns for the pharmacist?: No Did you have any side effects believed to be related to this medication, that resulted in hospitalization?: No Current Outpatient Medications on File Prior to Visit Medication Sig potassium chloride SR (MICRO-K) 10 mEq CR capsule Take 2 capsules by mouth every 12 hours. ondansetron (ZOFRAN) 4 mg tablet Take 1 tablet by mouth two times a day as needed for nausea/vomiting. FOR NAUSEA methocarbamol (ROBAXIN) 500 mg tablet Take 1 tablet by mouth two times a day as needed (muscle spasms). HOLD if lighted or dizzy Food Supplement, Lactose-Free (PROMOTE, OSMOLITE, TWO DILLAN, ENSURE PLUS, ENLIVE) liqd Take 237 mL bymouth three times a day with meals. capecitabine (XELODA) 500 mg tablet Take 3 tablets (1,500 mg) by mouth two times a day with food for 14 days on, followed by 7 days off acetaminophen (TYLENOL EXTRA STRENGTH) 500 mg tablet Take 1-2 tablets by mouth every 6 hours as needed for pain. busPIRone (BUSPAR) 7.5 mg tablet Take 7.5 mg by mouth once daily. alendronate (FOSAMAX) 70 mg tablet Take 70 mg by mouth one time a week. sertraline (ZOLOFT) 50 mg tablet Take 50 mg by mouth once daily. divalproex ER (DEPAKOTE ER) 250 mg 24 hr tablet Take 2 tablets by mouth two times a day. amoxicillin-clavulanate potassium (AUGMENTIN) 875-125 mg per tablet Take 1 tablet by mouth every 12hours. (Patient not taking: Reported on 01/19/2024) No current facility-administered medications on file prior to visit. 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 hazardous A/E: Bone marrow suppression,derm toxicity (STJ, HFS), GI toxicity(N/V/D), stomatitis, hepatoxicity, fatigue,asthenia, edema, D/I: No major Lab/Monitoring: Renal function-baseline Renal/hepatic function, CBC-during therapy Vaccine Assessment: Patient is overdue for some routine vaccinations, [facility] Est. Tx Plan Start Date: No information available Estimated Start Date Info: Per Dr. Poole's discretion Est. Estimated Treatment Duration: ~3-6 months, monitor Tete Ro (FriendFit) documented in this encounterSt. [facility] Note[facility] Telephone encounter Note* Telephone Encounter - Nae Devlin, Research Coordinator - 04/08/2024 2:24 PM EST IRB# [id number]: Vascular events in patients undergoing same-day nonCardiac surgery - [facility] PI: Corrina Benito MD, JAROD, VILMA. Outcomes Research Department. [facility]. This is a research study note. Patient assessments recorded here should not guide either clinical care or clinical decision-making. I spoke with Lakesha Koch regarding the 90-day follow-up for the VALIANCE study. The 90-day follow-up, 90-day Functional capacity, 90-day Quality of life, and 90-day Frailty forms were asked and completed by the patient over the phone. All other relevant forms were also completed if applicable tothe patient. Everything was entered directly into [employer] during this telephone encounter on 04/02/2024. The study period is now complete. Nae Delvin Outcomes Research [facility]01-[facility] Miscellaneous Notes* Telephone Encounter - Nae Devlin Research Coordinator - 04/08/2024 2:24 PM EST IRB# [id number]: Vascular events in patients undergoing same-day nonCardiac surgery - [facility] PI: Corrina Benito MD, JAROD, VILMA. Outcomes Research Department. [facility]. This is a research study note. Patient assessments recorded here should not guide either clinical care or clinical decision-making. I spoke with Lakesha Koch regarding the 90-day follow-up for the VALIANCE study. The 90-day follow-up, 90-day Functional capacity, 90-day Quality of life, and 90-day Frailty forms were asked and completed by the patient over the phone. All other relevant forms were also completed if applicable tothe patient. Everything was entered directly into [employer] during this telephone encounter on 04/02/2024. The study period is now complete. Nae Devlin Outcomes Research [facility] documented in this encounterSt. Charles Hospital01-13-2025 NoteC[facility]01-13-[facility] History of Present illness Narrative* Jeremiah Aadme MD - 04/08/2024 2:00 PM EST Patient presents with: Vomiting: and diarrhea x 4 days HPI: Feeling sick for 4 days. She is feeling dehydrated. This morning it felt like her chemo pills (colon cancer) got stuck in her throat and she vomited to dislodge them. She still feels some irritation in the throat. Positive symptoms: Nausea, Vomiting, Diarrhea, Malaise, Fatigue, light-headed, Negative symptoms: Fever, abdominal pain, blood in stool, OTC: pepto, zofran PAST MEDICAL HISTORY Diagnosis Date Anemia Anorexia nervosa Bowel wall thickening Daily consumption of alcohol Depression Essential tremor Failure to thrive in adult Feeding difficulties Focal epilepsy (HCC) Gait abnormality Inflammation of colonic mucosa Intestinal obstruction (HCC) Migraine Migraine without aura 05/03/2019 Muscular deconditioning Perforated 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 with localized peritonitis, gangrene and abscess Psoas abscess, right (HCC) Seizures (HCC) Severe protein-calorie malnutrition (HCC) MEDICATIONS: Current Outpatient Medications Medication Sig potassium chloride SR (MICRO-K) 10 mEq CR capsule Take 2 capsules by mouth every 12 hours. ondansetron (ZOFRAN) 4 mg tablet Take 1 tablet by mouth two times a day as needed for nausea/vomiting. FOR NAUSEA methocarbamol (ROBAXIN) 500 mg tablet Take 1 tablet by mouth two times a day as needed (muscle spasms). HOLD if lighted or dizzy Food Supplement, Lactose-Free (PROMOTE, OSMOLITE, TWO DILLAN, ENSURE PLUS, ENLIVE) liqd Take 237 mL bymouth three times a day with meals. capecitabine (XELODA) 500 mg tablet Take 3 tablets (1,500 mg) by mouth two times a day with food for 14 days on, followed by 7 days off acetaminophen (TYLENOL EXTRA STRENGTH) 500 mg tablet Take 1-2 tablets by mouth every 6 hours as needed for pain. busPIRone (BUSPAR) 7.5 mg tablet Take 7.5 mg by mouth once daily. alendronate (FOSAMAX) 70 mg tablet Take 70 mg by mouth one time a week. sertraline (ZOLOFT) 50 mg tablet Take 50 mg by mouth once daily. divalproex ER (DEPAKOTE ER) 250 mg 24 hr tablet Take 2 tablets by mouth two times a day. Food Supplement, Lactose-Free (ENSURE ACTIVE HIGH PROTEIN) liqd Take 237 mL by mouth three times a day with meals. amoxicillin-clavulanate potassium (AUGMENTIN) 875-125 mg per tablet Take 1 tablet by mouth every 12hours. (Patient not taking: Reported on 01/19/2024) Food Supplement, Lactose-Free (ENSURE HIGH PROTEIN) liqd Take 237 mL by mouth two times a day. 2 times daily between meals Food Supplement, Lactose-Free (ENSURE CLEAR) liqd Take 237 mL by mouth daily after lunch. PM Snack No current facility-administered medications for this visit. ALLERGIES: ALLERGIES Allergen Reactions Erythromycin Unknown Azithromycin Unknown VITALS: BP 104/62 Pulse 118 Temp 36.8 C (98.2 F) Resp 18 Wt 42.3 kg (93 lb 4.1 oz) SpO2 99% BMI16.01 kg/m PHYSICAL EXAM: GEN: ill appearing, lying on exam table HEENT: PERRL, EOMI, conjunctiva clear Ears: canals clear. TMs without erythema, bulge, or effusion Throat: tachy mucous membranes, Neck: supple, HEART: fast rate, regular rhythm, no murmurs LUNGS: clear to auscultation, no wheezes or crackles, no increased WOB ABD: Soft, non-distended, non-tender, no masses ASSESSMENT/PLAN: 1. Gastroenteritis - ICD9: 558.9, ICD10: K52.9 (primary diagnosis) 2. Dehydration - ICD9: 276.51, ICD10: E86.0 Probable infectious gastroenteritis which is prevalent in the community. She has improved nausea and vomiting but does not feel like she is keeping up with her fluid loss. She sought treatment primarily for IV fluid. She will go to [facility] ER for further treatment. Jeremiah Adame MD documented in this encounterSt. [facility]01-09-2025 Telephone encounter Note * Telephone Encounter - Fe Edmond APRN.BALL THREAD MACHINE TENDER - 04/04/2024 3:03 PM EST Pt notified that we will continue to follow up on the lung nodule per Dr. Poole's request. Pt is agreeable. [facility]01-[facility] Miscellaneous Notes* Telephone Encounter - Fe Edmond APRN.CNP - 04/04/2024 3:03 PM EST Pt notified that we will continue to follow up on the lung nodule per Dr. Poloe's request. Pt is agreeable. * Telephone Encounter - Fe Edmond APRN.CNP - 03/19/2024 12:02 PM EST Left message for pt to call back regarding recommendations for lung nodule follow up. Pt has colon cancer and is following with Dr. Poole-he would like pt to continue to follow in lung nodule clinic for lung nodules. Plan to discuss with patient [address] Chest is recommended, expected 04/27/2024. Order placed. Fe Edmond APRN.LUZMA documented in this encounterSt. Charles Hospital12-30-2024 Telephone encounter Note * Telephone Encounter - Christina Leach - 03/25/2024 3:19 PM EST Spoke with patient and scheduled Christina Leach [facility]-30-2024 Miscellaneous Notes* Telephone Encounter - Christina Leach - 03/25/2024 3:19 PM EST Spoke with patient and scheduled Christina Leach * Telephone Encounter - Kate Castillo RN - 03/25/2024 2:35 PM EST Discussed with Adrienne Bahena CNP. Labs/OV in 4 weeks ( around 04/19/24) Judy Castillo RN * Telephone Encounter - Kate Castillo RN - 03/25/2024 12:33 PM EST ORAL ANTI-CANCER AGENTS FOLLOW-UP PHONE CALL/VISIT Patient identified by name and date of . YES Patient is on cycle 2, day 20 (off week) of Capecitabine (Xeloda) for Colon / Rectal Cancer. SYMPTOM ASSESSMENT Headache: No Visual Changes: No Dizziness: No Do you have any periods of confusion? No Mood changes: No Mouth or throat pain: No Appetite: no changes in appetite, appetite fair 2 Boost daily and making a protein shake Taste changes: Yes nothing taste good; water taste like it has nutmeg in it' Nausea: Yes not constant, using Zofran, sometimes it works and sometimes it doesn't Vomiting: No Heartburn: No. Weight gain/loss: Unable to assess Episodes of palpitations/chest discomfort/pressure/pain No Shortness of breath: No Cough: No Diarrhea: yes, not a lot, not everyday but can be 1-2x day. Instructed on Immodium, patient agreeable to using if further diarrhea. Constipation: no Bladder/Urinary Changes: None Pain: No=0 (pain 0 on a scale of 0-10). Fever: No Chills: No Cold sensitivity: No Numbness/weakness: No Edema: No Skin changes: No Itching: No Yellowing of skin or eyes: No Musculoskeletal/joint changes/issues No Bleeding issues: No Activity Level (0-100%): decreased Does the patient need interventions or same day appointment:No ADDITIONAL FOLLOW UP: The next outreach call is due on: as needed and was scheduled na The following lab tests are due: will verify next lab date due Verified patient is aware of next appointment in the cancer center: She missed her last OV, will need rescheduled. Verified patient verbalized how to correctly refill the oral agent prescription. Yes Does the patient have any financial difficulties affording this medication? No Patient verbalizes understanding of when to seek Medical Attention? YES Patient verbalizes understanding of after-hours and weekend phone number? YES Patient verbalized importance of medication compliance in taking the oral agent as prescribed. Patient instructed to call if unable to comply. Kate Castillo RN documented in this encounterSt. Charles Hospital12-30-2024 Telephone encounter Note * Telephone Encounter - Kate Castillo RN - 03/25/2024 2:35 PM EST Discussed with Adrienne Bahena CNP. Labs/OV in 4 weeks ( around 04/19/24) Judy Castillo RN [facility] Work Phone: [phone] 739-212812-30-2024 Telephone encounter Note* Telephone Encounter - Kate Castillo RN - 03/25/2024 12:33 PM EST ORAL ANTI-CANCER AGENTS FOLLOW-UP PHONE CALL/VISIT Patient identified by name and date of . YES Patient is on cycle 2, day 20 (off week) of Capecitabine (Xeloda) for Colon / Rectal Cancer. SYMPTOM ASSESSMENT Headache: No Visual Changes: No Dizziness: No Do you have any periods of confusion? No Mood changes: No Mouth or throat pain: No Appetite: no changes in appetite, appetite fair 2 Boost daily and making a protein shake Taste changes: Yes nothing taste good; water taste like it has nutmeg in it' Nausea: Yes not constant, using Zofran, sometimes it works and sometimes it doesn't Vomiting: No Heartburn: No. Weight gain/loss: Unable to assess Episodes of palpitations/chest discomfort/pressure/pain No Shortness of breath: No Cough: No Diarrhea: yes, not a lot, not everyday but can be 1-2x day. Instructed on Immodium, patient agreeable to using if further diarrhea. Constipation: no Bladder/Urinary Changes: None Pain: No=0 (pain 0 on a scale of 0-10). Fever: No Chills: No Cold sensitivity: No Numbness/weakness: No Edema: No Skin changes: No Itching: No Yellowing of skin or eyes: No Musculoskeletal/joint changes/issues No Bleeding issues: No Activity Level (0-100%): decreased Does the patient need interventions or same day appointment:No ADDITIONAL FOLLOW UP: The next outreach call is due on: as needed and was scheduled na The following lab tests are due: will verify next lab date due Verified patient is aware of next appointment in the cancer center: She missed her last OV, will need rescheduled. Verified patient verbalized how to correctly refill the oral agent prescription. Yes Does the patient have any financial difficulties affording this medication? No Patient verbalizes understanding of when to seek Medical Attention? YES Patient verbalizes understanding of after-hours and weekend phone number? YES Patient verbalized importance of medication compliance in taking the oral agent as prescribed. Patient instructed to call if unable to comply. Kate Castillo RN [facility]12-30-[facility] Telephone encounter Note* Telephone Encounter - Pepe Pablo - 03/25/2024 12:13 PM EST For documentation purpose only- Called patient, left a detail message on phone and mychart. Thank you [facility]12-30-2024 Miscellaneous Notes* Telephone Encounter - Pepe Pablo - 03/25/2024 12:13 PM EST For documentation purpose only- Called patient, left a detail message on phone and mychart. Thank you documented in this encounterSt. Charles Hospital12-26-2024 History of Present illness Narrative* Jayjay (Fender FinisherTete Vilchis - 03/21/2024 1:23 PM EST [facility] Special[facility] Refill Assessment Medication(s): capecitabine Patient's current medication list and adherence status to current therapy were reviewed by Specialty Pharmacy clinical pharmacist to identify any new drug interactions or non-compliance to therapy. Therapy continues to be appropriate for disease, patient response, and medical condition. Verification of therapeutic benefit and effectiveness with current therapy was completed. Adverse events, barriers in adherence, and side effects were assessed and addressed if applicable. Will proceed with refill with no changes in therapy - patient progressing towards achieving therapeutic goals based on medication- specific laboratory parameters, disease state markers and outcomes. Office/provider notes have been reviewed prior to dispensing the medication. Horse Racing Manager Assessment Patient confirmed: Yes Med/dose confirmed: Yes Supplies needed: No supplies needed Missed doses: No Estimated days supply on hand: 0 Next cycle/dose due: 03/27/24 Copay amount: 15.55 Copay form of payment: Credit card on file Payment confirmed: Yes Delivery method: FedEx Signature required: Waived on patient request Delivery address: [address] [place] [place] [id number] Delivery date: 03/26/24 Questions or concerns for the pharmacist?: No Did you have any side effects believed to be related to this medication, that resulted in hospitalization?: No Current Outpatient Medications on File Prior to Visit Medication Sig potassium chloride SR (MICRO-K) 10 mEq CR capsule Take 2 capsules by mouth every 12 hours. ondansetron (ZOFRAN) 4 mg tablet Take 1 tablet by mouth two times a day as needed for nausea/vomiting. FOR NAUSEA methocarbamol (ROBAXIN) 500 mg tablet Take 1 tablet by mouth two times a day as needed (muscle spasms). HOLD if lighted or dizzy Food Supplement, Lactose-Free (PROMOTE, OSMOLITE, TWO DILLAN, ENSURE PLUS, ENLIVE) liqd Take 237 mL bymouth three times a day with meals. capecitabine (XELODA) 500 mg tablet Take 3 tablets (1,500 mg) by mouth two times a day with food for 14 days on, followed by 7 days off acetaminophen (TYLENOL EXTRA STRENGTH) 500 mg tablet Take 1-2 tablets by mouth every 6 hours as needed for pain. busPIRone (BUSPAR) 7.5 mg tablet Take 7.5 mg by mouth once daily. alendronate (FOSAMAX) 70 mg tablet Take 70 mg by mouth one time a week. sertraline (ZOLOFT) 50 mg tablet Take 50 mg by mouth once daily. divalproex ER (DEPAKOTE ER) 250 mg 24 hr tablet Take 2 tablets by mouth two times a day. amoxicillin-clavulanate potassium (AUGMENTIN) 875-125 mg per tablet Take 1 tablet by mouth every 12hours. (Patient not taking: Reported on 01/19/2024) No current facility-administered medications on file prior to visit. 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 hazardous A/E: Bone marrow suppression,derm toxicity (STJ, HFS), GI toxicity(N/V/D), stomatitis, hepatoxicity, fatigue,asthenia, edema, D/I: No major Lab/Monitoring: Renal function-baseline Renal/hepatic function, CBC-during therapy Vaccine Assessment: Patient is overdue for some routine vaccinations, enrolled in [employer] reminders. Est. Tx Plan Start Date: No information available Estimated Start Date Info: Per Dr. Poole's discretion Est. Estimated Treatment Duration: ~3-6 months, monitor Tete Ro ([employer]) [facility] Telephone encounter Note* Telephone Encounter - Fe Edmond APRN.CNP - 03/19/2024 12:02 PM EST Left message for pt to call back regarding recommendations for lung nodule follow up. Pt has colon cancer and is following with Dr. Poole-he would like pt to continue to follow in lung nodule clinic for lung nodules. Plan to discuss with patient [address] Chest is recommended, expected 04/27/2024. Order placed. Fe Edmond APRN.CNP [facility]24[facility] Note* Addendum Note - Fe Edmond APRN.CNP - 03/19/2024 12:02 PM ESTAddended by: FE EDMOND on: 03/19/2024 12:02 PM Modules accepted: Orders [facility]-24-[facility]24 Miscellaneous Notes* Addendum Note - Fe Edmond APRN.CNP - 03/19/2024 12:02 PM ESTAddended by: FE EDMOND on: 03/19/2024 12:02 PM Modules accepted: Orders documented in this encounterSt. [facility]12-24-2024 [facility]12[facility]-20[facility] History of Present illness Narrative* Fe Edmond APRN.CNP - 03/19/2024 10:52 AM EST Follow Up Diagnosis: Lung Nodule Recommendation: CT Scan Follow up Date: 04/29/2024 Follow-Up Scheduled: No Pulmonary Follow-Up Type: Lung Nodule Surveillance Lung Nodule Program [facility] documented in this encounterSt. [facility]12-[facility]24 History of Present illness Narrative* Dulce Zhou RT(Kiera) - 03/15/2024 2:20 PM EST Radiology Service Progress Note DATE OF SERVICE: March 15, 2024 TIME: 2:57 PM PATIENT IDENTITY VERIFICATION COMPLETED USING TWO (2) STANDARD IDENTIFIERS: Name and Date of confirmed by patient verbally. FALL SCREENING: Has the patient had 2 falls in the last year or 1 fall with injury or currently using an Ambulatory Assistive Device (Walker, Cane, Wheelchair, Crutches, etc.)? No PATIENT GENDER DATA: Female. status: : No status: NO. PATIENT RELEVANT IMPLANT DATA REVIEWED: Yes PATIENT PRESENTS WITH AN IMPLANTABLE OR ATTACHED CATERING SERVICE MANAGER: No ALLERGIES: Reviewed and unchanged CONTRAST ALLERGY: NO. EXAM: CT -CONTRAST INDUCED NEPHROPATHY RISK FACTORS: Patient age > 60 years CREATININE: Creatinine Date Value Ref Range Status 02/15/2024 0.57 (L) 0.58 - 0.96 mg/dL Final 01/08/2024 0.41 (L) 0.58 - 0.96 mg/dL Final 01/07/2024 0.53 (L) 0.58 - 0.96 mg/dL Final Estimated Glomerular Filtration Rate Date Value Ref Range Status 02/15/2024 101 >=60 mL/min/1.73m Final Comment: Estimated Glomerular Filtration Rate (eGFR) is calculated using the 2020 CKD-EPI creatinine equation. This equation utilizes serum creatinine, sex, and age as parameters. The creatinine assay has traceable calibration to isotope dilution- mass spectrometry. Refer to KDIGO guidelines for clinical interpretation. In patients with unstable renal function, e.g. those with acute kidney injury, the eGFRmay not accurately reflect actual GFR. eGFR- Date Value Ref Range Status 12/29/2020 >60 Final P.O.C.T. RESULTS: POC done: Yes, See Lab Tab March 15, 2024 TREATMENT: N/A PERIPHERAL IV DATA: Ambulatory: A peripheral IV was started in the Left antecubital site with a Angio cath: 22 gauge. RADIOLOGY DEPARTMENT: CT; Exam(s) Completed: Abdomen/Pelvis SIGNATURE: RT Oscar(R) PATIENT NAME: Lakesha Koch DATE: March 15, 2024 TIME: 2:57 PM documented in this encounterSt. [facility]12-20-2024 NoteC[facility]12-[facility]-20[facility] Note* Addendum Note - Tessa Spring MD - 03/07/2024 2:33 PM ESTAddended by: TESSA SPRING on: 03/07/2024 02:33 PM Modules accepted: [facility] Miscellaneous Notes* Addendum Note - Tessa Spring MD - 03/07/2024 2:33 PM ESTAddended by: TESSA SPRING on: 03/07/2024 02:33 PM Modules accepted: Level of Service documented in this encounterSt. [facility]12-12-2024 [facility]12-[facility] History of Present illness Narrative* Tessa Spring MD - 03/07/2024 2:26 PM EST Established Patient Visit REASON FOR VISIT Follow up - recurrent RLQ pain History of Present Illness: Lakesha Koch is a 64 year old female who was admitted to an outside hospital in August 2023 after afall and was found to have signs of perforated 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. The patient states she was planned forappendectomy which never happened. Instead, she had a percutaneous drain placed in the collection and was discharged home on a long course of IV antibiotics. The patient also states there was no clear plan for an interval appendectomy at that time. During her time at home she experienced several episodes of abdominal pain and nausea which required a visit to [facility] where she continued to receive conservative management with nondenominational of bowel function. On follow-up visits, the drain was managed expectantly and was eventually removed a month ago. During this course, the patient experienced significant failure to thrive and weight loss. She eventually underwent an ileocecectomy with fl on 01/04/2024 that showed the following on pathology: She recovered well from surgery and currently follows with medical oncology who recommended adjuvant capecitabine. She is on the intended treatment with some side effects but generally tolerable. She recently developed some recurrent right lower quadrant abdominal discomfort similar but less intense to her previous pain. The pain is 3 out of 10 in severity and occurs infrequent times during the day but does not interfere with her p.o. intake or bowel habits. She denies fevers or chills or nausea or vomiting. FUNCTIONAL STATUS: Walk a block or two on level ground (2.75 METs) PAST MEDICAL HISTORY Diagnosis Date Anemia Anorexia nervosa Bowel wall thickening Daily consumption of alcohol Depression Essential tremor Failure to thrive in adult Feeding difficulties Focal epilepsy (HCC) Gait abnormality Inflammation of colonic mucosa Intestinal obstruction (HCC) Migraine Migraine without aura 05/03/2019 Muscular deconditioning Perforated 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 with localized peritonitis, gangrene and abscess Psoas abscess, right (HCC) Seizures (HCC) Severe protein-calorie malnutrition (HCC) PAST SURGICAL HISTORY Procedure Laterality Date APPENDECTOMY 01/03/2024 COLONOSCOPY DIAGNOSTIC polyp EXPLORATORY OF ABDOMEN 09/19/2023 ROCIO DRAIN TO BULB SUCTION 09/01/2023 for acute 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 with perforation, localized peritonitis, and gangrene. FAMILY HISTORY Problem Relation Age of Onset Lung Cancer Mother Prostate Cancer Father Melanoma Sister No Known Problems Sister No Known Problems Sister No Known Problems Brother No Known Problems Brother No Known Problems Maternal Grandmother No Known Problems Maternal Grandfather Breast Cancer Paternal Grandmother No Known Problems Paternal Grandfather Anesthesia Problems No Family History Colon Cancer No Family History Social History Tobacco Use Smoking status: Former Current packs/day: 0.00 Average packs/day: 1 pack/day for 18.1 years (18.1 ttl pk-yrs) Types: Cigarettes Start date: 1977 Quit date: 1995 Years since quittin.9 Passive exposure: Past Smokeless tobacco: Never Vaping Use Vaping status: Never Used Substance Use Topics Alcohol use: Not Currently Comment: sober, quit 3 years ago Drug use: Not Currently Types: Marijuana Comment: unknown MEDICATIONS Current Outpatient Medications Medication Sig Dispense Refill potassium chloride SR (MICRO-K) 10 mEq CR capsule Take 2 capsules by mouth every 12 hours. iv contrast (will be provided with radiology test) CT ABD/PEL -Inject, intravenously, once for 1 dose.No IV access, insert saline lock prior to the beginning of sedation, infusion, injection of imaging exam. Discontinue saline lock post exam. If Pt. has a central line or IVAD, may access for administration according to line specific nursing protocol. Once exam is complete flush line and de-accessaccording to line specific nursing protocol in the CT contrast administration guidelines link. 1 Each 0 enteric contrast (will be provided with radiology test) For CT ABD/PEL W IVCON Routine order Administer, As Directed One Time Only, via Oral, Rectal, both Oral and Rectal, Enteric Tube, Stoma or Indwelling Catheter, Enteric Contrast as designated per enteric contrast guidelines 1 Each 0 ondansetron (ZOFRAN) 4 mg tablet Take 1 tablet by mouth two times a day as needed for nausea/vomiting. FOR NAUSEA 30 tablet 2 methocarbamol (ROBAXIN) 500 mg tablet Take 1 tablet by mouth two times a day as needed (muscle spasms). HOLD if lighted or dizzy 12 tablet 0 Food Supplement, Lactose-Free (PROMOTE, OSMOLITE, TWO DILLAN, ENSURE PLUS, ENLIVE) liqd Take 237 mL bymouth three times a day with meals. 3000 mL 11 capecitabine (XELODA) 500 mg tablet Take 3 tablets (1,500 mg) by mouth two times a day with food for 14 days on, followed by 7 days off 84 tablet 7 acetaminophen (TYLENOL EXTRA STRENGTH) 500 mg tablet Take 1-2 tablets by mouth every 6 hours as needed for pain. busPIRone (BUSPAR) 7.5 mg tablet Take 7.5 mg by mouth once daily. alendronate (FOSAMAX) 70 mg tablet Take 70 mg by mouth one time a week. sertraline (ZOLOFT) 50 mg tablet Take 50 mg by mouth once daily. divalproex ER (DEPAKOTE ER) 250 mg 24 hr tablet Take 2 tablets by mouth two times a day. 360 tablet1 amoxicillin-clavulanate potassium (AUGMENTIN) 875-125 mg per tablet Take 1 tablet by mouth every 12hours. (Patient not taking: Reported on 01/19/2024) Food Supplement, Lactose-Free (ENSURE ACTIVE HIGH PROTEIN) liqd Take 237 mL by mouth three times a day with meals. 28976 mL 0 Food Supplement, Lactose-Free (ENSURE HIGH PROTEIN) liqd Take 237 mL by mouth two times a day. 2 times daily between meals 17366 mL 0 Food Supplement, Lactose-Free (ENSURE CLEAR) liqd Take 237 mL by mouth daily after lunch. PM Snack 7110 mL 0 No current facility-administered medications for this visit. CURRENT ALLERGIES ALLERGIES Allergen Reactions Erythromycin Unknown Azithromycin Unknown REVIEW OF SYSTEMS PAIN ASSESSMENT: General: Weight gain 4 lbs since surgrey Neuro: Seizures on Depakote Respiratory: No history of current cough or dyspnea, or pneumonia in the past 6 weeks. No history of respiratory/pulmonary symptoms or problems Cardiovascular: No history of HTN requiring medication, no history of angina, CHF, MS, cardiac surgery or stents. Denies rest pain, gangrene or revascularization/amputation for PVD. No history of cardiovascular symptoms or problems. GI: See HPI : No history of UTI in past 6 weeks. No history of renal failure. Not currently on or requiring dialysis. No history of symptoms or problems. Endocrine: No history of diabetes. Has not taken steroids within the past 30 days. No history of endocrinological symptoms or problems. Hematology: Iron deficiency anemia due to malnutrition and long hospitalization Oncology: No history of CA metastasis, chemo within 30 days, or radiotherapy within 90 days. Has not lost 10% of body wt in 6 months. No history of oncological symptoms or problems. Psych: No history of psychiatric symptoms or problems. Musculoskeletal: Negative for joint pain or swelling, back pain or muscle pain. Skin: Negative for lesions, rash and itching. Anemia: No PHYSICAL EXAMINATION BP 115/72 Pulse 73 Ht 5' 4 (1.63m) Wt 96 lb 9 oz (43.8kg) BMI 16.57 kg/(m^2). General Appearance: Well appearing, alert, in no acute distress. Skin: Dry and thin Head: Normocephalic, no masses, lesions, tenderness or abnormalities Oropharynx: Lips, mucosa, and tongue normal, teeth and gums normal, oropharynx normal Neck: Not examined Lungs: Unlabored on room air Heart: Not examined Extremities: No deformities, edema, skin discoloration, clubbing or cyanosis. Good capillary refill. Neuro: Gait normal. Reflexes normal and symmetric. Sensation grossly intact. Abdomen: soft and non distended. Incision healed. No guarding or rebound. 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 She returns to my clinic with recurrent right lower quadrant pain that is similar but less intense to her original presentation. RECOMMENDATION I recommended a CT abdomen/pelvis with IV contrast to investigate the recurrent pain. This could besimply attributed to postoperative scarring versus fluid collection. Many other pathologies can be on the differential but can only be determined on cross-sectional imaging. Once the images are completed I will contact the patient with an update on the results and guide her on the next steps of diagnosis or treatment if needed. Medical Decision Making: Problems: Moderate: New problem with uncertain prognosis High: Illness/injury w/ threat to life/body function Data: Unique source(s) for external note(s) reviewed: 1 Unique test result(s) reviewed: 1 Unique test(s) ordered: 1 Assessment requiring an independent historian(s) Risk: Moderate: Moderate risk from testing/treatment Medical Decision Making Level: 4 - Moderate Tessa Spring MD [facility] March 07, 2024 * VelazquezGideonrandnitesh Monae - 03/07/2024 10:30 AM EST New/Est pt: Est Reason for apt: Pain near appendix per pt Brief Summary: Surgery 01/03/2024: Diagnostic laparoscopy Exploratory laparotomy Drainage of intraabdominal abscess Ileocecectomy End-to-side ileo-ascending hand sawn anastomosis Bilateral TAP blocks (transversus abdominis block with guidance) 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 CT Chest was ordered to f/u on lung nodule. Medical Hx: Anemia, Depression, Failure to thrive, Seizures Surgical Hx: Percutaneous Drain Placement for perf appendix (08/2023) Imaging: CT Chest 01/26/2024: IMPRESSION: 1. Stable 8 mm nodule in the posterior right upper lobe 2. Multiple clustered nodules in the left lower lobe in a tree-in-bud distribution which are most likely infectious/inflammatory 3. There is mucous plugging in the right middle lobe and lingula. Small consolidative opacity in the lingula likely due to postobstructive atelectasis. 4. Resolution of previously described bilateral lower lobe consolidations and bilateral pleural effusions. 5. Decreased size of mediastinal lymph nodes RESULT: Limitations: None. Lines, tubes, and devices: None. Lung parenchyma and airways: Stable 8 mm nodule posterior right upper lobe (7:51). Resolution of bilateral lower lobe consolidations. There are multiple clustered nodules in the left lower lobe in a tree-in-bud distribution. Mucus plugging is noted in the right middle lobe and lingula. Small consolidative opacity in the lingula likely due to postobstructive atelectasis. Pleural space: No pleural effusion. No pleural thickening. Lower neck, lymph nodes, and mediastinum: The imaged thyroid gland is normal. No lymphadenopathy in the supraclavicular, axillary, mediastinal, or hilar regions. Paratracheal lymph nodes measure up to 0.8 cm short axis, previously 1 cm. Heart, pericardium, and thoracic vessels: The thoracic aorta and main pulmonary artery are normal in caliber. The cardiac chambers are normal in size. No coronary artery atherosclerotic calcifications are noted, although the study is not optimized for coronary assessment. Small pericardial effusion. Bones and soft tissues: No destructive bone lesion. Chest wall is unremarkable. Upper abdomen: No abnormality in the imaged upper abdomen. Localizer images: No additional findings. CT CHEST WO IVCON (Order #[id number]) on 02/01/2024 - Order Result History Report documented in this encounterSt. [facility]12-12-2024 Instructions* Patient Instructions* David Velazquez - 03/07/2024 10:[address] Spring has placed an order for a CT scan of your Abdomen and Pelvis. To schedule this appointment within the [facility], please call [phone]. documented in this encounterSt. Charles Hospital12-12-2024 [facility]12-05-2024 Telephone encounter Note* Telephone Encounter - Estee Donnelly - 02/29/2024 12:30 PM EST Called and scheduled as directed [facility]-2024 Miscellaneous Notes* Telephone Encounter - Esete Donnelly - 02/29/2024 12:30 PM EST Called and scheduled as directed * Telephone Encounter - Kate Castillo RN - 02/29/2024 10:53 AM EST Patient has a oncology nutrition consult order that needs scheduled. thank you- Judy Castillo RN documented in this encounterSt. [facility] Hospital12-05-2024 Telephone encounter Note * Telephone Encounter - Kate Castillo RN - 02/29/2024 10:53 AM EST Patient has a oncology nutrition consult order that needs scheduled. thank you- Judy Castillo RN [facility] Work Phone: [phone]) 840-354612-04-2024 Telephone encounter Note* Telephone Encounter - Kate Castillo RN - 02/28/2024 4:05 PM EST Discussed sleep issues with Dr. Poole and he recommends trying Melatonin. Judy Castillo RN Call to patient, states she has tried Melatonin and it gives me nightmares She will continue to use Tylenol PM as needed. Judy Castillo RN [facility] Work Phone: 1(504) 139-618612-04-2024 Miscellaneous Notes* Telephone Encounter - Kate Castillo RN - 02/28/2024 4:05 PM EST Discussed sleep issues with Dr. Poole and he recommends trying Melatonin. Judy Castillo RN Call to patient, states she has tried Melatonin and it gives me nightmares She will continue to use Tylenol PM as needed. Judy Castillo RN * Telephone Encounter - Kate Castillo RN - 02/28/2024 2:50 PM EST ORAL ANTI-CANCER AGENTS FOLLOW-UP PHONE CALL/VISIT Patient identified by name and date of . YES Patient is on day 15 of Capecitabine (Xeloda) for Colon / Rectal Cancer, took last pill for Cycle #1 yesterday (day 14). She states she is ok, having symptoms to be expected SYMPTOM ASSESSMENT Headache: No Visual Changes: No Dizziness: No Do you have any periods of confusion? No Mood changes: No Mouth or throat pain: No Appetite: no changes in appetite, appetite fair --comes and goes with nausea Taste changes: No Nausea: Yes started D2 with nausea, now it comes and goes, felt good over the holiday but yesterday has nausea and decreased appetite. Vomiting: Yes Heartburn: No. Weight gain/loss: Unable to assess Episodes of palpitations/chest discomfort/pressure/pain No Shortness of breath: No Cough: No Diarrhea: no Constipation: no Bladder/Urinary Changes: None Pain: No=0 (pain 0 on a scale of 0-10). Fever: No Chills: No Cold sensitivity: No Numbness/weakness: No Edema: No Skin changes: No Itching: No Yellowing of skin or eyes: No Musculoskeletal/joint changes/issues No Bleeding issues: No Activity Level (0-100%): decreased Patient states that she is having trouble sleeping. States she falls asleep ok but wakes up in middle of the night and unable to fall back asleep. She is asking if she can take something to help. Shestates she has tried Tylenol PM with Benedryl and it doesn't help. Does the patient need interventions or same day appointment:No ADDITIONAL FOLLOW UP: The next outreach call is due on: as needed and was scheduled No, appointment made The following lab tests are due: Verified patient is aware of next appointment in the cancer center: Yes. Verified patient verbalized how to correctly refill the oral agent prescription. Yes Does the patient have any financial difficulties affording this medication? No Patient verbalizes understanding of when to seek Medical Attention? YES Patient verbalizes understanding of after-hours and weekend phone number? YES Patient verbalized importance of medication compliance in taking the oral agent as prescribed. Patient instructed to call if unable to comply. Kate Castillo RN * Telephone Encounter - Kate Castillo RN - 02/21/2024 9:32 AM EST ORAL ANTI-CANCER AGENTS FOLLOW-UP PHONE CALL/VISIT Patient is on day 8 of Capecitabine (Xeloda) for Colon / Rectal Cancer. Call to patient, message left to call me back and phone/contact number provided. Kate Castillo RN documented in this encounterSt. [facility] Hospital12-04-2024 Telephone encounter Note * Telephone Encounter - Kate Castillo RN - 02/28/2024 2:50 PM EST ORAL ANTI-CANCER AGENTS FOLLOW-UP PHONE CALL/VISIT Patient identified by name and date of . YES Patient is on day 15 of Capecitabine (Xeloda) for Colon / Rectal Cancer, took last pill for Cycle #1 yesterday (day 14). She states she is ok, having symptoms to be expected SYMPTOM ASSESSMENT Headache: No Visual Changes: No Dizziness: No Do you have any periods of confusion? No Mood changes: No Mouth or throat pain: No Appetite: no changes in appetite, appetite fair --comes and goes with nausea Taste changes: No Nausea: Yes started D2 with nausea, now it comes and goes, felt good over the holiday but yesterday has nausea and decreased appetite. Vomiting: Yes Heartburn: No. Weight gain/loss: Unable to assess Episodes of palpitations/chest discomfort/pressure/pain No Shortness of breath: No Cough: No Diarrhea: no Constipation: no Bladder/Urinary Changes: None Pain: No=0 (pain 0 on a scale of 0-10). Fever: No Chills: No Cold sensitivity: No Numbness/weakness: No Edema: No Skin changes: No Itching: No Yellowing of skin or eyes: No Musculoskeletal/joint changes/issues No Bleeding issues: No Activity Level (0-100%): decreased Patient states that she is having trouble sleeping. States she falls asleep ok but wakes up in middle of the night and unable to fall back asleep. She is asking if she can take something to help. Shestates she has tried Tylenol PM with Benedryl and it doesn't help. Does the patient need interventions or same day appointment:No ADDITIONAL FOLLOW UP: The next outreach call is due on: as needed and was scheduled No, appointment made The following lab tests are due: Verified patient is aware of next appointment in the cancer center: Yes. Verified patient verbalized how to correctly refill the oral agent prescription. Yes Does the patient have any financial difficulties affording this medication? No Patient verbalizes understanding of when to seek Medical Attention? YES Patient verbalizes understanding of after-hours and weekend phone number? YES Patient verbalized importance of medication compliance in taking the oral agent as prescribed. Patient instructed to call if unable to comply. Kate Castillo RN [facility]12-04-2024 History of Present illness Narrative* Jayjay (Fender Finisher)Tete - 02/28/2024 2:25 PM EST [facility] Specialty Refill Assessment Medication(s): capecitabine Patient's current medication list and adherence status to current therapy were reviewed by Specialty Pharmacy clinical pharmacist to identify any new drug interactions or non-compliance to therapy. Therapy continues to be appropriate for disease, patient response, and medical condition. Verification of therapeutic benefit and effectiveness with current therapy was completed. Adverse events, barriers in adherence, and side effects were assessed and addressed if applicable. Will proceed with refill with no changes in therapy - patient progressing towards achieving therapeutic goals based on medication- specific laboratory parameters, disease state markers and outcomes. Office/provider notes have been reviewed prior to dispensing the medication. Horse Racing Manager Assessment Patient confirmed: No Med/dose confirmed: No Supplies needed: No supplies needed Missed doses: No Estimated days supply on hand: 0 Next cycle/dose due: 03/06/24 Copay amount: 13.95 Copay form of payment: Credit card on file Payment confirmed: Yes Delivery method: FedEx Signature required: Waived on patient request Delivery address: [address] [place] [id number] Delivery date: 03/05/24 Questions or concerns for the pharmacist?: No Did you have any side effects believed to be related to this medication, that resulted in hospitalization?: No Current Outpatient Medications on File Prior to Visit Medication Sig ondansetron (ZOFRAN) 4 mg tablet Take 1 tablet by mouth two times a day as needed for nausea/vomiting. FOR NAUSEA methocarbamol (ROBAXIN) 500 mg tablet Take 1 tablet by mouth two times a day as needed (muscle spasms). HOLD if lighted or dizzy Food Supplement, Lactose-Free (PROMOTE, OSMOLITE, TWO DILLAN, ENSURE PLUS, ENLIVE) liqd Take 237 mL bymouth three times a day with meals. capecitabine (XELODA) 500 mg tablet Take 3 tablets (1,500 mg) by mouth two times a day with food for 14 days on, followed by 7 days off acetaminophen (TYLENOL EXTRA STRENGTH) 500 mg tablet Take 1-2 tablets by mouth every 6 hours as needed for pain. busPIRone (BUSPAR) 7.5 mg tablet Take 7.5 mg by mouth once daily. alendronate (FOSAMAX) 70 mg tablet Take 70 mg by mouth one time a week. sertraline (ZOLOFT) 50 mg tablet Take 50 mg by mouth once daily. divalproex ER (DEPAKOTE ER) 250 mg 24 hr tablet Take 2 tablets by mouth two times a day. amoxicillin-clavulanate potassium (AUGMENTIN) 875-125 mg per tablet Take 1 tablet by mouth every 12hours. (Patient not taking: Reported on 01/19/2024) No current facility-administered medications on file prior to visit. [facility] SPECIALTY CLINICAL ASSESSMENT - HEMATOLOGY ONCOLOGY V6: Assessment to use: Refill Date of influenza vaccination reminder: 02/07/2024 Date of most recent vaccination assessment: 02/07/2024 Treatment Plan Information: Dx: Stage II colon cancer with high risk features, MMR proficient Tx Hx: surgery Tx Plan: adjuvant capecitabine Medication: capecitabine Dose: CrCl 87ml/min, 1500mg / 1.90f5=4094 mg/m2 Sig: Take 3 tablets (1,500 mg) by mouth two times a day with food for 14 days on, followed by 7 days off Admin/Storage: Take within 30 minutes of a meal, swallow whole. hazardous A/E: Bone marrow suppression,derm toxicity (STJ, HFS), GI toxicity(N/V/D), stomatitis, hepatoxicity, fatigue,asthenia, edema, D/I: No major Lab/Monitoring: Renal function-baseline Renal/hepatic function, CBC-during therapy Vaccine Assessment: Patient is overdue for some routine vaccinations, enrolled in [facility] reminders. Est. Tx Plan Start Date: No information available Estimated Start Date Info: Per Dr. Poole's discretion Est. Estimated Treatment Duration: ~3-6 months, monitor Tete Ro (Fender Finisher) [facility] encounter Note* Telephone Encounter - Kate Castillo RN - 02/21/2024 9:32 AM EST ORAL ANTI-CANCER AGENTS FOLLOW-UP PHONE CALL/VISIT Patient is on day 8 of Capecitabine (Xeloda) for Colon / Rectal Cancer. Call to patient, message left to call me back and phone/contact number provided. Kate Castillo RN [facility]11-22-2024 [facility] History of Present illness Narrative* Amber Valverde LISW - 02/16/2024 3:25 PM EST PSYCHOSOCIAL SCREENING ASSESSMENT Date of Service: February 15, 2024 Lakesha Koch is a 64 year old female being seen for initial social work assessment. Diagnosis: Adenocarcinoma of cecum New Primary Oncologist: Jimmie Poole MD Radiation Oncologist: GREGORY Today's visit includes: self/patient Family History of Cancer: Lung cancer (mother), Prostate cancer (father), Melanoma (sister), Breastcancer (paternal grandmother) SUPPORT NETWORK: Social Connections: Not on file Marital status: Single Parent(s): Child/Children: No health care administrator arrangements needed: Na Siblings: Yes but none local - most family in [place] Grandchild(kellie): none Home Health Provider: Na Community Services: NA Kenzie Identified: No Oriental Orthodox/Spirituality: Unknown Are these practices or beliefs that may affect or influence treatment? No EMPLOYMENT/FINANCIAL/HEALTH INSURANCE: Employment: Pt is unemployed and reports she has been living off her savings since the beginning ofOct when she stopped working d/t illness. Income source: None incoming at the moment Insurance: Medicare only Prescription coverage: Yes Is the patient appropriate for referral to [facility] COBRA Assistance program? No Financial Distress: Yes. If yes, what assistance is needed? Utilities - Pt has also applied for Social Security Disability approximately 3-4 weeks ago. [place]: No FOOD INSECURITY Within the past year, have you worried about how you would buy or obtain food? No LIVING ARRANGEMENTS: Type: House- independent spilt Resides with: Alone Transportation Needs: No Transportation Needs (01/04/2024) PRAPARE - Transportation Lack of Transportation (Medical): No Lack of Transportation (Non-Medical): No FUNCTIONAL STATUS: Cognitive limitations: none Physical limitations: none Language barrier: No Hearing Impaired: No Speech Impaired: No Visual Impairments: No Special considerations/accommodations needed: Na HEALTH LITERACY: Do you have difficulty understanding medical instructions or other written materials you receive from you doctor or pharmacy? No Do have difficulty filling out medical forms by yourself? No The following interventions were put into place: NA MEDICATION ADHERENCE: Within the past 2 weeks, have you had difficulty remembering to take your medicine? No Within the past 2 weeks, did you ever miss taking your medications for reasons other than forgetting? No The following interventions were put into place: NA MENTAL HEALTH HISTORY: Yes Diagnosis: Per chart review, pt noted as diagnosed with anxiety and depression History of combat/trauma: unknown Intimate Partner Violence: Not At Risk (01/04/2024) Safe at Home? Fear of Current or Ex-Partner: Not on file Emotionally Abused: Not on file Physically Abused: Not on file Sexually Abused: Not on file Safe at Home?: Yes Substance Use and Treatment History: denied History of Abuse: Unknown Issues with: Sleep:No Eating:Yes Exercising: No Stress Management: No ADVANCE DIRECTIVES/LEGAL DOCUMENTS: Living Will: Yes Scanned into EPIC: Yes, August 2023 Health Care Durable Power of Land Title Examiner: Yes Scanned into EPIC: Yes, August, Guardianship: No Scanned into EPIC:NA Reasons Advanced Directives were not Addressed: NA PATIENT/FAMILY DECISION MAKERS: 1st: Jeanette Garvin (sister) PH: [phone] 2nd: Brittney Koch PH: [phone] 3rd: Calli Alfaro PH: [phone] AD forms completed and scanned into pt's chart as of August 2023. COPING STATUS: Stress: Not on file Coping Strengths: successful managing past crises strong problem-solving skills ability to plan able to follow direction consistently over time able to communicate effectively future oriented and able to identify goals Current affect/mood: appropriate and hopeful History of Loss: Yes Adjustment to diagnosis: reflecting understanding and responding appropriately BARRIERS/CARE CHALLENGES: N/A Are barriers/care challenges identified likely to have an impact on the patient's quality of life during treatment? possibly INTERVENTIONS/REFERRALS TO BE PROVIDED: Communicate pertinent medical/psychosocial information to Cancer Center team Provide emotional support to patient/family Assist with financial support applications Resources and Referrals: Internal: Encourage pt to pursue counseling or a type of support/mentoring program External: [facility] CLINICAL IMPRESSION: Lakesha is a 64 year old female pt recently diagnosed with malignant neoplasm of the cecum. Per chart review she has been under care for GI concerns for some time. Pt also has a history of depression and anxiety per chart review, currently untreated. During assessment, pt did not report any concernswith mental health and presents as adjusting well to her diagnosis. Social supports: Pt lives alone, has no children, and has family who lives in [place]. She reports she has some friends she keeps in touch with and is able to talk to about what is happening in her life however reports she misses having family close. SW outreach needed: Pt reports needing assistance with finances. She reports she had been working until beginning of December and discontinues working d/t illness. Pt reports since then she has been living on her savings ad has no incoming finances. She does report that she applied for Social Security Disability 3-4 weeks ago. SW encouraged pt to call the SS office for any update on application. Pt reports she will. Other financial needs include utilities. SW and pt discussed budgeting options through her utility companies. Pt was not aware of these programs and reports she will call and get those set up. Pt reports she is not behind on any bills but is anxious about how long her SS application is taking and does not want to not be able to afford her bills. SW and pt also discussed [employer] funding and other assistance companies. Pt in agreement with any assistance. Psychosocial Risk Criteria If positive for one or more of the following risk criteria, follow up every 30 days Age: NA Mental Health: History of depression and anxiety per chart review. Pt also self- reported during August 2023 that she discontinued buspar and fluoxetine a couple of years ago. Also per review, pt declined any new anti-depressants offered during this hospital stay. Practical Needs: Financial/Insurance PLAN: SW to follow pt at upcoming appointments and remain in contact with pt throughout treatment to address any psychosocial concerns if needed. Follow up appointment with SW in: PRN Assigned SW listed in Care Team tab: Yes EVIE Peterson-Roger documented in [facility]St[facility] Telephone encounter Note * Telephone Encounter - Ellyn Zhang RN - 02/16/2024 9:37 AM EST Care Coordination Triage Note [facility] Situation: Patient reports Nausea/Vomiting and Other chest discomfort/pain Background: Stage II colon cancer. Started xeloda 02/13/23 Assessment: GENERALIZED PAIN Where is the pain? All right down the center of her chest. When did you first notice the pain? 3 am How intense is the pain right now (scale of 1-10)? 6-7/10. How do you describe the pain: pressure, when asked if it feels like there's an elephant sitting on her chest she stated yeah we could go with that. Does the pain radiate anywhere? no Is the pain constant or intermittent? Constant from 3-7 am. Resolved for 2.5 hours after taking tylenol and now she has pain again. What makes it better? Sitting up What makes it worse? Laying down Have you had this pain before? no What are you taking anything for the pain? Tylenol 2 tablets, resolved and now the pain is back. Heartburn: denies having issues at baseline, not currently having issues now. Indigestion: denies Jaw/shoulder/neck/arm pain: denies Fever/chills: no SOB: denies Heart palpitations: denies Nausea/vomiting yesterday after taking Xeloda. Patient had 2-3 episodes of emesis. Patient took Pepto which might've helped. Patient does not have an antiemetic at home. Recommendations: Per RNCC, patient directed to: Emergency Room due to the issue being urgent. Spoke to Adrienne who advised ED. Patient aware we will send in an antiemetic to [facility]. Patient instructed to take 1 hour prior to taking xeloda. Ellyn Zhang RN February 16, 2024 9:[address] [facility]11-22-2024 Miscellaneous Notes* Telephone Encounter - Ellyn Zhang RN - 02/16/2024 9:37 AM EST Care Coordination Triage Note [facility] Situation: Patient reports Nausea/Vomiting and Other chest discomfort/pain Background: Stage II colon cancer. Started xeloda 02/13/23 Assessment: GENERALIZED PAIN Where is the pain? All right down the center of her chest. When did you first notice the pain? 3 am How intense is the pain right now (scale of 1-10)? 6-10/03. How do you describe the pain: pressure, when asked if it feels like there's an elephant sitting on her chest she stated yeah we could go with that. Does the pain radiate anywhere? no Is the pain constant or intermittent? Constant from 3-7 am. Resolved for 2.5 hours after taking tylenol and now she has pain again. What makes it better? Sitting up What makes it worse? Laying down Have you had this pain before? no What are you taking anything for the pain? Tylenol 2 tablets, resolved and now the pain is back. Heartburn: denies having issues at baseline, not currently having issues now. Indigestion: denies Jaw/shoulder/neck/arm pain: denies Fever/chills: no SOB: denies Heart palpitations: denies Nausea/vomiting yesterday after taking Xeloda. Patient had 2-3 episodes of emesis. Patient took Pepto which might've helped. Patient does not have an antiemetic at home. Recommendations: Per RNCC, patient directed to: Emergency Room due to the issue being urgent. Spoke to Adrienne who advised ED. Patient aware we will send in an antiemetic to [facility]. Patient instructed to take 1 hour prior to taking xeloda. Ellyn Zhang RN February 16, 2024 9:37 AM documented in this encounterSt. [facility] Hospital11-19-2024 Telephone encounter Note * Telephone Encounter - Christina Leach - 02/13/2024 4:25 PM EST Spoke with patient and scheduled as directed. Christina Hany [facility]11-19-2024 Miscellaneous Notes* Telephone Encounter - Christina Leach - 02/13/2024 4:25 PM EST Spoke with patient and scheduled as directed. Christina Leach * Telephone Encounter - Kate Castillo RN - 02/13/2024 3:24 PM EST PSS: Please call patient to schedule CBC/CMP/OV with Dr. Poole in 4 weeks. Judy Castillo RN documented in this encounterSt. Charles Hospital11-19-2024 Telephone encounter Note * Telephone Encounter - Kate Castillo RN - 02/13/2024 3:30 PM EST See other phone encounter. Judy Castillo RN [facility] Work Phone: [phone]) 160-566511-19-2024 Miscellaneous Notes* Telephone Encounter - Kate Castillo RN - 02/13/2024 3:30 PM EST See other phone encounter. Judy Castillo RN * Telephone Encounter - Fang Myers - 02/12/2024 3:30 PM EST Patient states she is expecting to receive her chemo medication tomorrow and is asking if there areinstructions before she starts. documented in this encounterSt. Charles Hospital11-19-2024 Telephone encounter Note * Telephone Encounter - Kate Castillo RN - 02/13/2024 3:24 PM EST PSS: Please call patient to schedule CBC/CMP/OV with Dr. Poole in 4 weeks. Judy [address]illo RN [facility] Work Phone: [phone]) 554-916511-19-2024 Telephone encounter Note* Telephone Encounter - Kate Castillo RN - 02/13/2024 3:19 PM EST ORAL ANTI-CANCER AGENTS EDUCATION patient called today for oral medication education of Xeloda for Colon / Rectal Cancer Anticipated/Scheduled start date: 02/14/24 States she had lab work at [facility] last week and will have results faxed to our office for baseline labs. Fax # provided. READINESS TO LEARN Cognitive Ability: Alert and oriented Motivation to Learn: Interested Family Support: High - Very involved in pt care Instruction Provided to: Patient Patient learns best by: Multiple Methods Factors affecting learning: None Physical limitation affecting learning: None CORTEZ ASSESSMENT: 1.) Verified that patient knows that the oral agents are for cancer and are taken by mouth. Yes 2.) Medication review completed during visit. Yes 3.) Patient is able to swallow pills. Yes 4.) Patient is able to read the drug label/information. Yes 5.) Patient is able to open the medication bottles and packages. Yes 6.) Has patient taken other pills for cancer? No 7.) Is patient experiencing any symptoms that would affect their ability to keep down pills, for example nausea or vomiting? No 8.) Verified that patient understands prescription delivery, benefit investigation and refill process. Yes DRUG-SPECIFIC EDUCATION: 1.) Verified patient knows the drug name. Yes 2.) Verified patient understands the dose and schedule of oral anti cancer agent. Yes 3.) Verified patient knows what to do if a medication dose is missed. Yes 4.) Verified patient understands where to store the drug. Yes 5.) Verified patient understands potential side effects and how to manage them. Yes 6.)Verified patient understands handling precautions of oral anti cancer agent. Yes 7.) Verified patient was given written instructions and understands when and whom to call with questions. Yes 8.) Verified patient understands where and how to return drug. Yes 9.) Verified patient received drug specific adult education handout and neutropenic wallet card Yes EVALUATE: The patient demonstrated an understanding of all the above education using the teach-back method. Yes Instructed to call us with any questions, concerns, and/or unresolved symptoms. Will continue to follow up and provide reinforcement of teaching topics as needed. Kate Castillo RN [facility] Work Phone: [phone]) 563-206311-19-2024 Miscellaneous Notes* Telephone Encounter - Kate Castillo RN - 02/13/2024 3:19 PM EST ORAL ANTI-CANCER AGENTS EDUCATION patient called today for oral medication education of Xeloda for Colon / Rectal Cancer Anticipated/Scheduled start date: 02/14/24 States she had lab work at [facility] last week and will have results faxed to our office for baseline labs. Fax # provided. READINESS TO LEARN Cognitive Ability: Alert and oriented Motivation to Learn: Interested Family Support: High - Very involved in pt care Instruction Provided to: Patient Patient learns best by: Multiple Methods Factors affecting learning: None Physical limitation affecting learning: None CORTEZ ASSESSMENT: 1.) Verified that patient knows that the oral agents are for cancer and are taken by mouth. Yes 2.) Medication review completed during visit. Yes 3.) Patient is able to swallow pills. Yes 4.) Patient is able to read the drug label/information. Yes 5.) Patient is able to open the medication bottles and packages. Yes 6.) Has patient taken other pills for cancer? No 7.) Is patient experiencing any symptoms that would affect their ability to keep down pills, for example nausea or vomiting? No 8.) Verified that patient understands prescription delivery, benefit investigation and refill process. Yes DRUG-SPECIFIC EDUCATION: 1.) Verified patient knows the drug name. Yes 2.) Verified patient understands the dose and schedule of oral anti cancer agent. Yes 3.) Verified patient knows what to do if a medication dose is missed. Yes 4.) Verified patient understands where to store the drug. Yes 5.) Verified patient understands potential side effects and how to manage them. Yes 6.)Verified patient understands handling precautions of oral anti cancer agent. Yes 7.) Verified patient was given written instructions and understands when and whom to call with questions. Yes 8.) Verified patient understands where and how to return drug. Yes 9.) Verified patient received drug specific adult education handout and neutropenic wallet card Yes EVALUATE: The patient demonstrated an understanding of all the above education using the teach-back method. Yes Instructed to call us with any questions, concerns, and/or unresolved symptoms. Will continue to follow up and provide reinforcement of teaching topics as needed. Kate Castillo RN documented in this encounterSt. Charles Hospital11-19-2024 Telephone encounter Note * Telephone Encounter - Brianne Schilling MSW - 02/13/2024 11:12 AM EST Patient spoke with this primary care SW. Patient appears to go to our oncology dept asking aboutfinancial assistance resources for help with bills. This Sw asked if patient were looking to speak with ZanaOncology DOM. Patient noted that she is struggling with all types of bills. This Sw noted it may be more beneficial to speak with Zana as she mayhave more financial resources specific to oncology patients. This Sw will forward message to ZanaOncology, SW asking that Zana reach out to patient. [facility]11-19-2024 Miscellaneous Notes* Telephone Encounter - Brianne Schilling MSW - 02/13/2024 11:12 AM EST Patient spoke with this primary care SW. Patient appears to go to our oncology dept asking aboutfinancial assistance resources for help with bills. This Sw asked if patient were looking to speak with ZanaOncology DOM. Patient noted that she is struggling with all types of bills. This Sw noted it may be more beneficial to speak with Zana as she mayhave more financial resources specific to oncology patients. This Sw will forward message to Zana,Oncology, SW asking that Zana reach out to patient. documented in this encounterSt. Charles Hospital11-18-2024 Telephone encounter Note * Telephone Encounter - Charlesnohelia KennyFang - 02/12/2024 3:30 PM EST Patient states she is expecting to receive her chemo medication tomorrow and is asking if there areinstructions before she starts. [facility] Work Phone: [phone]) 885-865211-15-2024 Telephone encounter Note* Telephone Encounter - Cathy Macias RPh - 02/09/2024 3:09 PM EST Patient was contacted to discuss cost of capecitabine, unfortunately medication is unaffordable. Currently no grants are open and no PAP program for Xeloda. [employer] has an internal [employer] that patient can apply for. Prescirption pended to [employer]. Office has been included on email to [employer] as well, they may ask for some additional info from office Cathy Macias, PharmD, BCACP, BCOP Clinical Pharmacist, Oncology [facility] P: , F: Pool: P [facility] Pool #: [id number] [facility]11-15-2024 Miscellaneous Notes* Telephone Encounter - Cathy Macias RPh - 02/09/2024 3:09 PM EST Patient was contacted to discuss cost of capecitabine, unfortunately medication is unaffordable. Currently no grants are open and no PAP program for Xeloda. [employer] has an internal [place] that patient can apply for. Prescirption pended to [employer]. Office has been included on email to [employer] as well, they may ask for some additional info from office Cathy Macias PharmD, SARITHACP, BCOP Clinical Pharmacist, Oncology [facility] [facility] , F: Pool: P [email or web address] ONCOLOGY Pool #: [id number] documented in this encounterSt. [facility]11[facility]24 History of Present illness Narrative* Jayjay ([employer])Tete - 02/05/2024 9:[address] [facility] received prescription(s) for capecitabine [address] Poole's office. Benefits investigation was conducted, indicating that a prior authorization is not required at this time per patient's plan with Medicare PART B. Prescriptions will now be processed through [facility] for determination of next steps. Tete Ro ([employer]) Addendum February 05, 2024 2:30 PM : Patient does NOT have a supplement, copay is $77.76. Noted coverage under HCAP in chart. If financially toxic may be able to suggest 5-fu. Cathy Macias PharmD, SARITHACP, BCOP Clinical Pharmacist, Oncology [facility] P: , F: Pool: P [email or web address] ONCOLOGY Pool #: [id number] documented in this encounterSt. Charles Hospital11-11-2024 [facility] Miscellaneous Notes* [facility] Agency Yulia Schwartz RN - 02/03/2024 9:42 AM EST SITUATION: [facility] agency discharge visit completed today. only patient present during today's visit. patient reports the following: Allergies--reviewed Medications--reviewed current medications Falls--None BACKGROUND: Reason for Home Care: post op colon surgery ASSESSMENT: SN greeted at door by patient no DME and demonstrates stable gait. Patient appears in no acute distress. Patient/CG concerns verbalized today: no new concerns Vitals (see flow sheet for details): stable SN findings today: Pt ambulating in the home. She reports that details of her oncology appt and will be starting oral Xeloda when it has been delivered to her home. Pt is to report to oncologist whenshe rec's the medication for directions. Pt reports that she does not feel that she needs home health any longer, she is now able to do the things that she needs to do in her home and has been able to get to OP appts with the assistance of a friend. Pt requests dc from home health today. Abdomen issoft, glue to incision has self debrided, pt reports that the pain that she has been having is gradually improving and she is not taking prescription meds for pain management. Bowels have been movingtwice a day and are becoming more firm. Pt is pleased with her overall progress. See intervention summary for education details and any skills performed. Specific SN discharge instructions: notify oncologist when your meds arrive for directions on follow up care. Notify surgeon of any surgical concerns such as increased pain, change in bowel habits, onset of n/v or inability to keep food down. Patient encouraged to take all medication as ordered, eat a well-balanced diet and follow up with all physician appointments. NOMNC: patient requested discharge today Discharged due to per patient/caregiver request. Patient discharged from Home Care to: self-care RECOMMENDATION: Additional follow ups recommended: None Patient to follow up with Dr. Moss for additional medical questions/concerns. documented in this encounterSt. Charles Hospital11-09-2024 Patient's home Note* SN Agency DC - Yulia Xie RN - 02/03/2024 9:42 AM EST SITUATION: [facility] agency discharge visit completed today. only patient present during today's visit. patient reports the following: Allergies--reviewed Medications--reviewed current medications Falls--None BACKGROUND: Reason for Home Care: post op colon surgery ASSESSMENT: SN greeted at door by patient no DME and demonstrates stable gait. Patient appears in no acute distress. Patient/CG concerns verbalized today: no new concerns Vitals (see flow sheet for details): stable SN findings today: Pt ambulating in the home. She reports that details of her oncology appt and will be starting oral Xeloda when it has been delivered to her home. Pt is to report to oncologist whenshe rec's the medication for directions. Pt reports that she does not feel that she needs home health any longer, she is now able to do the things that she needs to do in her home and has been able to get to OP appts with the assistance of a friend. Pt requests dc from home health today. Abdomen issoft, glue to incision has self debrided, pt reports that the pain that she has been having is gradually improving and she is not taking prescription meds for pain management. Bowels have been movingtwice a day and are becoming more firm. Pt is pleased with her overall progress. See intervention summary for education details and any skills performed. Specific SN discharge instructions: notify oncologist when your meds arrive for directions on follow up care. Notify surgeon of any surgical concerns such as increased pain, change in bowel habits, onset of n/v or inability to keep food down. Patient encouraged to take all medication as ordered, eat a well-balanced diet and follow up with all physician appointments. NOMNC: patient requested discharge today Discharged due to per patient/caregiver request. Patient discharged from Home Care to: self-care RECOMMENDATION: Additional follow ups recommended: None Patient to follow up with Dr. Moss for additional medical questions/concerns. [facility] Work Phone: 1(595) 581-139711-08-2024 Telephone encounter Note* Telephone Encounter - David Velazquez - 02/02/2024 11:31 AM EST Phoned patient but no answer. Left VM letting patient know Robaxin [facility]. Provided callback number if she has any questions. David Velazquez GREASER AND OILER Pouncing Lathe Operator for Dr. Hutchison and Bryanna Luna, LUZMA Covering for Dr. Spring [facility]11-08-2024 Miscellaneous Notes* Telephone Encounter - David Velazquez - 02/02/2024 11:31 AM EST Phoned patient but no answer. Left letting patient know Robaxin order was signed [facility]. Provided callback number if she has any questions. David Velazquez RN BSN Pouncing Lathe Operator for Dr. Hutchison and Bryanna Luna, LUZMA Covering for Dr. Spring * Telephone Encounter - David Velazquez - 01/31/2024 2:06 PM EST Patient returned call. S/p Lx converted to open Exploratory Laparotomy with ileocecectomy 01/03/2024. Pain: Location: RLQ Abdomen Ratin-4/10 Frequency: Constant Description: Sharp Medications: None -Patient has noticed RLQ pain for a few days and is worried. She had this same pain prior to surgery. -No complaints of bloating. -Patient having regular BM's -No urinary changes -No pain at incision site Advised patient to take Motrin and/or Tylenol to help with her pain at this time. I also advised patient that I will reach out to Dr. Spring to see if he has any other suggestions or concerns aboutthis abdominal pain. Patient appreciative for the call and has no further questions or concerns at this time. David Velazquez RN BSN Pouncing Lathe Operator for Dr. Hutchison and Bryanna Luna, LUZMA Covering for Dr. Spring * Telephone Encounter - David Velazquez - 01/31/2024 1:58 PM EST Phoned patient, but no answer. Left . David Velazquez RN BSN Pouncing Lathe Operator for Dr. Hutchison and Bryanna Luna, LUZMA Covering for Dr. Spring * Telephone Encounter - Yanna Rousseau - 01/31/2024 11:50 AM EST Patient called, she is having pain at her surgical site. Her surgery was on 01/02. Colectomy partial open w/ ileocolostomy. Please call her at [phone], thank you! documented in this encounterSt. Charles Hospital11-08-2024 Miscellaneous Notes* CARE COORDINATION - Joe Williamson RN - 02/02/2024 11:10 AM EST Patient called per this nurse. Patient was to be seen today Mon02/02/24. However, due to staffing, this Nurse contacted patient tosee if she would be willing to be seen Sat 02/02 instead? Patient is agreeable to be seen Sat by her primary nurse. Schedule was updated. documented in this encounterSt. Charles Hospital11-08-2024 Patient's home Note* CARE COORDINATION - Joe Williamson RN - 02/02/2024 11:10 AM EST Patient called per this nurse. Patient was to be seen today Mon02/02/24. However, due to staffing, this Nurse contacted patient tosee if she would be willing to be seen Sat 02/02 instead? Patient is agreeable to be seen Sat by her primary nurse. Schedule was updated. [facility] Work Phone: 1(509) 885-420311-07-2024 [facility] History of Present illness Narrative* Jimmie Poole MD - 02/01/2024 10:50 AM EST HISTORY OF PRESENT ILLNESS: Lakesha Koch is a 63 year old female July 2023, had large bowel perforation with obstruction, had a drain in place, had a post obstruction infection which persisted. Home a few weeks now. Slowly getting back on feet. Appetite good but things taste funny, so intake not optimal, weight down. We and family in attendance by phone and in person discussed recent dx of right colon cancer, pT4N0, grade 2, but prior obstruction and lymphatic invasion render higher risk of recurrence. We discussed the role of adjuvant chemotherapy in reducing recurrence risk. As stage II her risks are fairly low, adjuvant chemo will reduce risks by approximately 5%. CLINICAL IMPRESSION: Stage II colon cancer with high risk features. She is agreeable to doing adjuvant capecitabine, info give. RECOMMENDATION/PLAN: 1. Will start treatment soon, she will try to improve nutritional status, nutrition consult requested, Rx for boost sent. 2. Will start capecitabine in 1-2 weeks, will see back after treatment underway. Written and verbal health teaching given to patient, patient verbalizes understanding and agrees with treatment plan. PAST MEDICAL HISTORY Diagnosis Date Anemia Anorexia nervosa Bowel wall thickening Daily consumption of alcohol Depression Essential tremor Failure to thrive in adult Feeding difficulties Focal epilepsy (HCC) Gait abnormality Inflammation of colonic mucosa Intestinal obstruction (HCC) Migraine Migraine without aura 05/03/2019 Muscular deconditioning Perforated 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 with localized peritonitis, gangrene and abscess Psoas abscess, right (HCC) Seizures (HCC) Severe protein-calorie malnutrition (HCC) PAST SURGICAL HISTORY Procedure Laterality Date APPENDECTOMY 01/03/2024 EXPLORATORY OF ABDOMEN 09/19/2023 ROCIO DRAIN TO BULB SUCTION 09/01/2023 for acute 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 with perforation, localized peritonitis, and gangrene. FAMILY HISTORY Problem Relation Age of Onset Lung Cancer Mother Prostate Cancer Father Melanoma Sister No Known Problems Sister No Known Problems Sister No Known Problems Brother No Known Problems Brother No Known Problems Maternal Grandmother No Known Problems Maternal Grandfather Breast Cancer Paternal Grandmother No Known Problems Paternal Grandfather Anesthesia Problems No Family History Colon Cancer No Family History Social History Tobacco Use Smoking status: Former Current packs/day: 0.00 Average packs/day: 1 pack/day for 18.1 years (18.1 ttl pk-yrs) Types: Cigarettes Start date: 1977 Quit date: 1995 Years since quittin.8 Passive exposure: Past Smokeless tobacco: Never Vaping Use Vaping status: Never Used Substance Use Topics Alcohol use: Not Currently Comment: sober, quit 3 years ago Drug use: Not Currently Types: Marijuana Comment: unknown ALLERGIES: ALLERGIES Allergen Reactions Erythromycin Unknown Azithromycin Unknown CURRENT OUTPATIENT MEDICATIONS: acetaminophen (TYLENOL EXTRA STRENGTH) 500 mg tablet Take 1-2 tablets by mouth every 6 hours as needed for pain. busPIRone (BUSPAR) 7.5 mg tablet Take 7.5 mg by mouth once daily. alendronate (FOSAMAX) 70 mg tablet Take 70 mg by mouth one time a week. sertraline (ZOLOFT) 50 mg tablet Take 50 mg by mouth once daily. divalproex ER (DEPAKOTE ER) 250 mg 24 hr tablet Take 2 tablets by mouth two times a day. Food Supplement, Lactose-Free (ENSURE ACTIVE HIGH PROTEIN) liqd Take 237 mL by mouth three times a day with meals. Food Supplement, Lactose-Free (ENSURE HIGH PROTEIN) liqd Take 237 mL by mouth two times a day. 2 times daily between meals Food Supplement, Lactose-Free (ENSURE CLEAR) liqd Take 237 mL by mouth daily after lunch. PM Snack methocarbamol (ROBAXIN) 500 mg tablet Take 1 tablet by mouth two times a day as needed (muscle spasms). HOLD if lighted or dizzy (Patient not taking: Reported on 01/29/2024) amoxicillin-clavulanate potassium (AUGMENTIN) 875-125 mg per tablet Take 1 tablet by mouth every 12hours. (Patient not taking: Reported on 01/19/2024) REVIEW OF SYSTEMS: GENERAL: No fever, night sweats, weight loss or malaise. All other reviewed and negative other than HPI. PHYSICAL EXAMINATION: VITAL SIGNS: BP 97/66 Pulse 95 Temp (Src) 97.4 (Temporal) Wt 89 lb (40.4kg) SpO2 98% GENERAL APPEARANCE: Well appearing, in no acute distress, alert and oriented x3, well-hydrated, well nourished. I spent a total of 60 minutes on the date of the service which included preparing to see the patient, [id number] patient care, completing clinical documentation, obtaining and/or reviewing separately obtained history, counseling and educating the patient/family/caregiver, ordering medications, arron ts, or procedures, communicating with other HCPs (not separately reported), independently interpreting results (not separately reported), communicating results to the patient/family/caregiver, and care coordination (not separately reported). And review of NCCN guidelines Electronically Signed: Jimmie Poole MD February 01, 2024 10:51 AM documented in this encounterSt. [facility] Hospital11-06-2024 Telephone encounter Note * Telephone Encounter - David Velazquez - 01/31/2024 2:06 PM EST Patient returned call. S/p Lx converted to open Exploratory Laparotomy with ileocecectomy 01/03/2024. Pain: Location: RLQ Abdomen Ratin-4/10 Frequency: Constant Description: Sharp Medications: None -Patient has noticed RLQ pain for a few days and is worried. She had this same pain prior to surgery. -No complaints of bloating. -Patient having regular BM's -No urinary changes -No pain at incision site Advised patient to take Motrin and/or Tylenol to help with her pain at this time. I also advised patient that I will reach out to Dr. Spring to see if he has any other suggestions or concerns aboutthis abdominal pain. Patient appreciative for the call and has no further questions or concerns at this time. David Velazquez RN BSN Pouncing Lathe Operator for Dr. Hutchison and Bryanna Luna, BALL THREAD MACHINE TENDER Covering for Dr. Spring [facility]11-06-[facility] Telephone encounter Note* Telephone Encounter - David Velazquez - 01/31/2024 1:58 PM EST Phoned patient, but no answer. Left VM. David Velazquez RN BSN Pouncing Lathe Operator for Dr. Hutchison and Bryanna Luna, BALL THREAD MACHINE TENDER Covering for Dr. Spring [facility] Telephone encounter Note* Telephone Encounter - Yanna Rousseau - 01/31/2024 11:50 AM EST Patient called, she is having pain at her surgical site. Her surgery was on 01/02. Colectomy partial open w/ ileocolostomy. Please call her at [phone], thank you! [facility] Instructions* Patient Instructions* Fe Edmond APRN.BALL THREAD MACHINE TENDER - 01/29/2024 1:39 PM EST Images from the original note were not included. Plan for follow-up: Pending final radiology review of 01/26/2024 CT Chest. Frequently Asked Questions: How common are lung nodules? Nodules are found in up to half of adults who get a chest x-ray or CT scan. Do nodules cause any symptoms? In general, small nodules don t cause any noticeable problems. They re too small to cause pain or breathing problems. Should I worry that I have a nodule? Most nodules are not cancer, but for a small number of people the nodule may negative turner apprentice to be an early cancer. Your doctor can tell if your nodule is lung cancer by: Seeing how it looks on the CT scan. Seeing whether it grows over time. A nodule that grows larger over time is a sign that it could be a cancer. Taking a sample of the nodule with a needle or surgery. Most people with a nodule will NOT need to have this test. What is the chance that the nodule is an early lung cancer? Fewer than 5% of all nodules negative turner apprentice to be cancer What if my nodule is lung cancer? Even if a nodule turns out to be lung cancer, it is likely to be an early stage lung cancer. Peoplewith early stage lung cancer that is treated are less likely to than people who are diagnosed at a later stage when the cancer has started to cause symptoms. What will happen next? Your healthcare team will probably recommend getting more CT scans to keep a close eye on the nodule to see if it changes. We call this active surveillance. ? If a nodule is not cancer, it usually won t grow. If the nodule doesn t grow over a 2-year period, it is very unlikely to be cancer. Most of the time, it is safe to stop watching nodules if there is no growth over a 2-year period. ? On the other hand, if the nodule is getting bigger, it should be looked at more closely to see ifit is lung cancer. Nodules can be viewed more closely using different radiology studies or by biopsy (using a needle or surgery to take a sample of the nodule to look at under a microscope). Your healthcare team will determine which is best for you. Why shouldn t I get a biopsy now? ? A biopsy means removing a piece of your lung in order to look at it under a microscope. Biopsies are usually not recommended when nodules are small because it is very difficult to biopsy them safely. ? Doing a biopsy when a nodule is small can cause harm such as collapse of the lung, bleeding, or infection. Is it really safe to wait for the next CT scan? Most cancers grow fairly slowly, and it takes several months for them to get bigger. So even if thenodule is lung cancer, it will likely still be small in a few months. Even if the nodule is lung cancer that is growing, there is a very good chance that surgery or radiation will cure you. Waiting a few months for the next CT scan is very safe and should not affect the treatment you receive or your chances for cure if the nodule turns out to be cancer. How does my clinician decide when to do the next CT scan? There are several guidelines for how to decide when to get the next CT scan. These guidelines are based on the chance the nodule is lung cancer and how big the nodule might be at the time of the next scan. Your healthcare provider will determine the best time for your next CT scan based on these guidelines. Your healthcare provider may choose to discuss the CT results with other specialists to determine the best plan for you. What if I m a smoker? Quitting now will decrease your chance of getting lung cancer in the future, as well as many other serious health problems like emphysema and heart disease. Some people think that if they already have lung cancer, they might as well keep smoking. THAT IS WRONG. documented in this encounterSt. [facility] Hospital11-04-2024 [facility] History of Present illness Narrative* Fe Edmond APRN.CNP - 01/29/2024 10:03 AM EST Images from the original note were not included. [facility] INCIDENTAL LUNG NODULE PROGRAM Impression / Recommendations 1. Multiple lung nodules Nature and etiology of lung nodules discussed with patient and family/friend. Nodules appear inflammatory and NM PET may not be helpful. Final radiology review for 01/26/2024 CT Chest is not availableat this time. Will await final report and discuss with physician champion regarding recommended follow up. Favor continued CT surveillance in 3 months. 2. Nicotine Dependence, Former: Continue to abstain from smoking cigarettes. 3. Adenocarcinoma of cecum (HCC) Continue with oncology. Follow Up Follow Up Diagnosis: Lung Nodule Follow up Date: 02/01/2024 Follow-Up Scheduled: No Pulmonary Follow-Up Type: Lung Nodule Surveillance Lung Nodule Program Location: [facility] Please enter a follow up date: 02/01/2024 for review of final radiology report Requesting Provider: Amish Xavier Reason for the Consult Lakesha Koch presents today for consultation / opinion regarding lung nodule(s). My impression and final recommendations will be communicated back to the requesting physician by way of shared medical record or letter via US mail. History of Present Illness Lakesha Koch is a 63 year old female with a pertinent past medical history significant for Formersmoker: (18 pack-years, 28 years since quit) who is being seen as a new consultation for evaluationof a lung nodule(s). Accompanied by friend Debra and sister Brittney on the phone. Lakesha Koch had a CT Chest (scan type) on 09/16/2023 (date) for the indication of suspected aspiration, history of perforated 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. >5 nodules were detected Incidentally. Solid Smooth nodule/s up to 8 mm were noted in the Right upper lobe of the lung. They have prior imaging (No). Interval CT Chest completed 01/26/[address] Spring. Shows stable RUL nodule. New or increasing branching opacity in ADAM. Improving pleural effusion. LLL tree in bud nodules. Patient was diagnosed with colon cancer 01/03/2024 Component FINAL DIAGNOSIS A. Appendix, excision: - Invasive adenocarcinoma involving appendix (see comment). - Acute 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 with serositis. - Fallopian tube with patchy acute and chronic inflammation and fibrous adhesions. B. Terminal ileum and cecum, ileocecectomy: - Invasive moderately differentiated adenocarcinoma arising in the cecum at the appendiceal orifice, with associated pericolonic abscess and direct invasion into adherent terminal ileum (see comment and synoptic report). - Twenty-two lymph nodes, negative for malignancy (0/22). Respiratory symptoms include: SOB: No Chest tightness: No Coughing: No Hemoptysis: No Wheezing: No Fever/Chills: No Recent Respiratory Infection: No Unintentional weight loss: Yes Last 12 Encounter Wt Readings: Date: Wt: 01/29/2024 40.1 kg (88 lb 6.5 oz) 01/18/2024 39.6 kg (87 lb 4.8 oz) 12/28/2023 42.1 kg (92 lb 13 oz) 12/18/2023 39.9 kg (88 lb) 12/18/2023 42.5 kg (93 lb 11.1 oz) 10/23/2023 40.8 kg (90 lb) 10/11/2023 41.2 kg (90 lb 12.8 oz) 10/11/2023 41.3 kg (91 lb) 10/03/2023 40.1 kg (88 lb 6.4 oz) 09/08/2023 43.2 kg (95 lb 3.8 oz) 05/03/2019 48.5 kg (107 lb) 01/08/2019 45.1 kg (99 lb 6.8 oz)] Modified Medical Research [place] Dyspnea Scale (MMRC) I only get breathless with strenous exercise 0 Other Pertinent Clinical Risk Factors: Significant exposures (1 year or more of exposure): None. Lived in [place] for 14 years. Recent travel history: NA Animal exposure: NA Hobbies: NA Does the patient have a prior history malignancy? Yes: Colon Does the patient have a family history of lung cancer? Yes mother Problem List, History, Medications and allergies have been reviewed from the [facility] electronic medical record and any appropriate up-dates have been made. Physical Exam BP 130/68 Pulse 81 Resp 18 Wt 40.1 kg (88 lb 6.5 oz) SpO2 99% BMI 15.17 kg/m General Appearance: Cachectic and in no acute distress. Neck: Supple, no adenopathy; thyroid symmetric, normal size Lungs: Lungs clear to auscultation. No wheezing, rhonchi, rales.. Heart: RRR without murmur, gallop, or rubs. No ectopy. Neurologic: Oriented X 3. Diagnostic Data I have personally visualized, reviewed and analyzed the findings on pulmonary function testing and radiographs. stable RUL nodule Improving pleural effusion, ADAM increasing opacity Improved pleural effusion, residual tree in bud nodules * * *Final Report* * * DATE OF EXAM: Sep 16 2023 8:48AM [facility] [place] [id number] - CT CHEST W IVCON / PROCEDURE REASON: Aspiration * * * * Physician Interpretation * * * * EXAMINATION: CHEST CT WITH CONTRAST CLINICAL HISTORY: 63-year-old woman with suspected aspiration: History of perforated 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 Technique: Spiral CT acquisition of the chest from the thoracic inlet to the upper abdomen following IV contrast. MQ: [id number] Contrast: 100 mL Omnipaque [address] Radiation dose: Integrated Dose-length product (DLP) for this visit = 236 mGy*cm CT Dose Reduction Employed: Automated exposure control (AEC) Comparison: Abdominal CT, 09/15/2023 and 09/08/2023 RESULT: Limitations: Motion artifacts distort images through the lung parenchyma. Metal artifact from left shoulder prosthesis limits evaluation of the left supraclavicular and axillary regions. Lines, tubes, and devices: OG tube courses through the esophagus with its tip and side-port in the stomach. Lung parenchyma and airways: There are airspace consolidations with some surrounding groundglass changes in the bilateral lower lobes, right more than left, which are new and worse compared to earlier abdominal scans from 09/08/2023 and 09/15/2023 respectively. Indeterminate 8 mm nodule in the right upper lobe (image 43). Mild bronchiectasis in the anterior left upper lobe (images 76-96), inferior lingula and medial segment middle lobe (images 107-138) associated with mucous plugging and clustered tiny centrilobular branching nodules. Luminal effacement of subsegmental bronchi in the lung bases. No endobronchial soft tissue densities in the trachea or major bronchi. Pleural space: Small to medium bilateral pleural effusions, similar to 09/15/2023 and mildly increased in volume on the right from 09/08/2023. Lower neck, lymph nodes, and mediastinum: The imaged thyroid gland is unremarkable. Evaluation of the supraclavicular compartment is limited due to metallic artifacts from the adjacent left shoulder joint. No axillary lymphadenopathy. There are multiple mildly enlarged mediastinal lymph nodes, such as upper and lower right paratracheal lymph nodes which measure up to 10 mm in short axes (images 50 and 62), a subcarinal node which measures 13 mm in short axis (image 78), and bilateral hilar nodes which measure up to 10 mm in short axes (images 79 and 83). A few anterior mediastinal nodular densities which measure up to 8 mm in short axis are also likely nonspecific lymph nodes (images 50 and 59). There is mild wall thickening of the lower esophagus, which could be due to underdistention. Heart, pericardium, and thoracic vessels: The thoracic aorta is normal in course and caliber with conventional branching pattern of the aortic arch. Minimal calcifications in the distal aortic arch. The main pulmonary artery is normal in caliber. No central filling defects. No substantial coronary calcifications although the present scan is not optimized for coronary assessment. The cardiac chambers are normal in size aside from mild left atrial enlargement. There is a small circumferential pericardial effusion. Bones and soft tissues: Left shoulder reverse arthroplasty with metallic artifacts. Mild loss of height of the superior endplate of the T7 vertebral body. Intraosseous hemangioma in the T9 vertebral body. Mild osteopenia and degenerative changes in the thoracic spine. Mild bilateral flank edema. Coarse calcifications in the left breast, likely benign. Upper abdomen: Small volume perihepatic ascites. Localizer images: No additional findings. Impression / Recommendations To optimize physician communication via the electronic health record, the Impression & Recommendations section has been placed at the beginning of this note. Fe Edmond [email or web address] January 29, 2024 10:09 AM documented in this encounterSt. [facility]11[facility] Telephone encounter Note * Telephone Encounter - Montserrat Yeager PTA - 01/26/2024 2:38 PM EDT Unmade PT visit today due [facility] Work Phone: 1(765) 857-785811-01-2024 Miscellaneous Notes* Telephone Encounter - Montserrat Yeager PTA - 01/26/2024 2:38 PM EDT Unmade PT visit today due DR appointment documented in this encounterSt. Charles Hospital11-01-2024 Miscellaneous Notes* SN Routine - Yulia Xie RN - 01/26/2024 2:06 PM EDT SITUATION: [facility] routine visit completed today. only patient present during today's visit. patient reports the following: Allergies--reviewed Medications--reviewed current medications Falls--None BACKGROUND: Reason for Home Care: post surgery assessment and instruction, ASSESSMENT: SN greeted at door by patient no DME and demonstrates stable gait. Patient appears in no acute distress. Patient/CG concerns verbalized today: no new concerns. Vitals (see flow sheet for details): stable SN findings today: Pt ambulating in the home. She states that she has been dating a little better, has been using the strategy of small frequent meals with emphasis on protein. Abdomen is soft, bowels are moving well. pt reports that pain is now more muscle soreness and managing with tylenol. See intervention summary for education details. Patient demonstrated a need for further skilled SN services for chronic disease management & education and wound/skin care. Current Discharge plan: self-care RECOMMENDATION: Next visit to focus on (be specific): any changes from oncology, did nutrition referral get made, ?disc dc documented in this encounterSt. Charles Hospital11-01-2024 Patient's home Note* SN Routine - Yulia Xie RN - 01/26/2024 2:06 PM EDT SITUATION: [facility] routine visit completed today. only patient present during today's visit. patient reports the following: Allergies--reviewed Medications--reviewed current medications Falls--None BACKGROUND: Reason for Home Care: post surgery assessment and instruction, ASSESSMENT: SN greeted at door by patient no DME and demonstrates stable gait. Patient appears in no acute distress. Patient/CG concerns verbalized today: no new concerns. Vitals (see flow sheet for details): stable SN findings today: Pt ambulating in the home. She states that she has been dating a little better, has been using the strategy of small frequent meals with emphasis on protein. Abdomen is soft, bowels are moving well. pt reports that pain is now more muscle soreness and managing with tylenol. See intervention summary for education details. Patient demonstrated a need for further skilled SN services for chronic disease management & education and wound/skin care. Current Discharge plan: self-care RECOMMENDATION: Next visit to focus on (be specific): any changes from oncology, did nutrition referral get made, ?disc dc [facility] Work Phone: [phone] [facility] History of Present illness Narrative* Tessa Spring MD - 01/26/2024 1:08 PM EDT Images from the original note were not included. [facility] Multidisciplinary GI Tumor Board Primary Disease: Colon cancer (cecum) Oncologist: Dr. Phoenix Ford History: Lakesha Koch is a 63 year old female who was admitted to an outside hospital in August 2023 after afall and was found to have signs of perforated 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. The patient states she was planned forappendectomy which never happened. Instead, she had a percutaneous drain placed in the collection and was discharged home on a long course of IV antibiotics. The patient also states there was no clear plan for an interval appendectomy at that time. During her time at home she experienced several episodes of abdominal pain and nausea which required a visit to [facility] where she continued to receive conservative management with nondenominational of bowel function. On follow-up visits, the drain was managed expectantly and was eventually removed a month ago. During this course, the patient experienced significant failure to thrive and weight loss. She continues to have chronic right lower quadrant pain with severe acute peaks every once in a while. Thereis no obvious trigger for these attacks. The patient reports adequate p.o. intake and bowel habits and admits to gaining a few pounds of weight. She underwent an ileocecectomy that showed the following on pathology Surgical Pathologic Stage: pT4b pN0 (Stage IIB) Recommendations: The patient has high risk stage II on pathology due to tumor perforation and direct invasion into the terminal ileum. Recommendation is to refer to medical oncology to discuss the need for adjuvant chemotherapy and its role in recurrence risk reduction. Decision about regimen is to be made based on complaint of assessment. Genetic counseling referral: NA Eligibility for Clinic Trials: NA Supportive Care Services (PT/OT/Palliative Medicine/Social Work/Pain Management): NA Synoptic OP note completed: N/A, cancer diagnosis unknown prior to surgery. Attendees: Representatives were present from Medical Oncology, Colorectal Surgery, [facility] Surgery, Surgical Oncology, Radiation Oncology, Radiology, Interventional radiology, Gastroenterology and Pathology. This is the summary of the general discussion provided at tumor board conference. The final recommendations will be made by the primary health care team and the patient after discussing the benefits,risks and alternatives to the various treatment options Tessa Spring MD [facility] / [facility] documented in this encounterSt. Charles Hospital11-01-2024 History of Present illness Narrative* Dulce Zhou, RT(R) - 01/26/2024 8:40 AM EDT Radiology Service Progress Note PATIENT NAME: Lakesha Koch DATE OF SERVICE: January 26, 2024 TIME: 8:55 AM PATIENT IDENTITY VERIFICATION COMPLETED USING TWO (2) IDENTIFIERS: Name and Date of confirmedby patient verbally. FALL SCREENING: Has the patient had 2 falls in the last year or 1 fall with injury or currently using an Ambulatory Assistive Device (Walker, Cane, Wheelchair, Crutches, etc.)? No PATIENT GENDER DATA: Female. status: : No status: NO. PATIENT RELEVANT IMPLANT DATA REVIEWED: Yes PATIENT PRESENTS WITH AN IMPLANTABLE OR ATTACHED CATERING SERVICE MANAGER: No RADIOLOGY DEPARTMENT: CT; Exam(s) Completed: Chest PERIPHERAL IV DATA: Not applicable SIGNED BY: RT Oscar(R) January 26, 2024 8:55 AM documented in this encounterSt. Charles Hospital11-01-2024 NoteC[facility]10-29-2024 Miscellaneous Notes* PT ROUTINE/REASSESSMENT/RECERT/CASE MGMT Montserrat Alegria PTA - 01/23/2024 11:31 AM EDT SITUATION: only patient present during today's visit. patient reports the following since the last homecare visit: medications/allergies--no changes, no fall. patient reports she is feeling pretty good. Anxiousto find out about chemo. . Patient stated she has been upstairs to her bedroom a few times now. Happy about that BACKGROUND: Diagnoses (reason for Home Care): Diagnostic laparoscopy Exploratory laparotomy Drainage of intraabdominal abscess Ileocecectomy End-to-side ileo-ascending hand sawn anastomosis Bilateral TAP blocks (transversus abdominis block with guidance Weight Bearing/Precaution Changes: no changes ASSESSMENT: Focus of visit performed and progressed LEtrength exercises for HEP. Patient did well and denies pain before ar after exercises. Did report of mild fatigue after step ups. Plan of care, goals, and visit frequency reviewed and agreed upon with patient and/or caregiver. Current Discharge Plan: independent with home exercise program Anticipate discharge by TBD RECOMMENDATION: Next visit to focus on increase reps if able See intervention summary for intervention/education details. documented in this encounterSt. [facility] Hospital10-29-2024 Patient's home Note* PT ROUTINE/REASSESSMENT/RECERT/CASE Montserrat Barbosa PTA - 01/23/2024 11:31 AM EDT SITUATION: only patient present during today's visit. patient reports the following since the last homecare visit: medications/allergies--no changes, no fall. patient reports she is feeling pretty good. Anxiousto find out about chemo. . Patient stated she has been upstairs to her bedroom a few times now. Happy about that BACKGROUND: Diagnoses (reason for Home Care): Diagnostic laparoscopy Exploratory laparotomy Drainage of intraabdominal abscess Ileocecectomy End-to-side ileo-ascending hand sawn anastomosis Bilateral TAP blocks (transversus abdominis block with guidance Weight Bearing/Precaution Changes: no changes ASSESSMENT: Focus of visit performed and progressed LEtrength exercises for HEP. Patient did well and denies pain before ar after exercises. Did report of mild fatigue after step ups. Plan of care, goals, and visit frequency reviewed and agreed upon with patient and/or caregiver. Current Discharge Plan: independent with home exercise program Anticipate discharge by TBD RECOMMENDATION: Next visit to focus on increase reps if able See intervention summary for intervention/education details. [facility] Work Phone: 1(100) 815-767410-29-2024 Telephone encounter Note* Telephone Encounter - David Velazquez - 01/23/2024 9:21 AM EDT Phoned patient to let her know that signed paperwork was faxed this morning. Patient very appreciative for the follow-up call. David Velazquez RN BSN Pouncing Lathe Operator for Dr. Hutchison and Bryanna Luna, BALL THREAD MACHINE TENDER Covering for Dr. Spring [facility]10-29-2024 Miscellaneous Notes* Telephone Encounter - David Velazquez - 01/23/2024 9:21 AM EDT Phoned patient to let her know that signed paperwork was faxed this morning. Patient very appreciative for the follow-up call. David Velazquez RN BSN Pouncing Lathe Operator for Dr. Hutchison and Bryanna Luna, BALL THREAD MACHINE TENDER Covering for Dr. Spring * Telephone Encounter - Pepe Pablo - 01/19/2024 10:48 AM EDT Kina, Received a call from the patient, she was seen yesterday by Dr. Spring. Per patient, she receivedpaperwork from Dr. Spring for the handicap sticker, but it was missing his signature and the [facility] did not accept it. Patient is requesting a signed form to be faxed to [phone] ([facility]). Thank you documented in this encounterSt. Charles Hospital10-25-2024 Miscellaneous Notes* PT ROUTINE/REASSESSMENT/RECERT/CASE Shelby Sunshine PT - 01/19/2024 2:06 PM EDT SITUATION: only patient present during today's visit. patient reports the following since the last homecare visit: medications/allergies--no changes, no fall. patient reports that she was to see the surgeon yesterday and was told that the pathology found cancer . She has an appt with oncology to determine if chemo will be necessary BACKGROUND: Diagnoses (reason for Home Care): SURGERY/PROCEDURE(S): Diagnostic laparoscopy Exploratory laparotomy Drainage of intraabdominal abscess Ileocecectomy End-to-side ileo-ascending hand sawnanastomosis Bilateral TAP blocks (transversus abdominis block with guidance) Weight Bearing/Precaution Changes: no changes. ASSESSMENT: Focus of visit introduced standing ther ex, restorator with no resistance Plan of care, goals, and visit frequency reviewed and agreed upon with patient and/or caregiver. Current Discharge Plan: independent with home exercise program Anticipate discharge by 02/10/24 RECOMMENDATION: Next visit to focus on assess tolerance to actiivty at this visit See intervention summary for intervention/education details. documented in this encounterSt. Charles Hospital10-25-2024 Patient's home Note* PT ROUTINE/REASSESSMENT/RECERT/CASE Shelby Sunshine PT - 01/19/2024 2:06 PM EDT SITUATION: only patient present during today's visit. patient reports the following since the last homecare visit: medications/allergies--no changes, no fall. patient reports that she was to see the surgeon yesterday and was told that the pathology found cancer . She has an appt with oncology to determine if chemo will be necessary BACKGROUND: Diagnoses (reason for Home Care): SURGERY/PROCEDURE(S): Diagnostic laparoscopy Exploratory laparotomy Drainage of intraabdominal abscess Ileocecectomy End-to-side ileo-ascending hand sawnanastomosis Bilateral TAP blocks (transversus abdominis block with guidance) Weight Bearing/Precaution Changes: no changes. ASSESSMENT: Focus of visit introduced standing ther ex, restorator with no resistance Plan of care, goals, and visit frequency reviewed and agreed upon with patient and/or caregiver. Current Discharge Plan: independent with home exercise program Anticipate discharge by 02/10/24 RECOMMENDATION: Next visit to focus on assess tolerance to actiivty at this visit See intervention summary for intervention/education details. [facility] Work Phone: 1(548) 317-318210-25-2024 Miscellaneous Notes* SN Routine - Yulia Xie RN - 01/19/2024 12:26 PM EDT SITUATION: [facility] routine visit completed today. only patient present during today's visit. patient reports the following: Allergies--reviewed Medications--reviewed current medications Falls--None BACKGROUND: Reason for Home Care: post op assessment and instruction ASSESSMENT: SN greeted at door by patient no DME and demonstrates stable gait. Patient appears in no acute distress. Patient/CG concerns verbalized today: pt verbalizes that she found out that she has colon CA at hersurgeon f/u vs yesterday. Vitals (see flow sheet for details): stable SN findings today: Pt sitting in recliner. See above report. She has a follow up appt with oncologyon 01/31. She states that surgeon fells that he was able to resent all of the tumor but she will nedsome follow up chemo. Pt feels that she is recovering slowly from surgery, getting stronger every day. Abdominal incision is well approximated with no signs of infection noted. Appetite has not been very good, she is taking 2-3 high ptorien supplements daily. SN also reviewed soft protein sourcesand encouraged small frequent meals. She may resume regular diet 2 weeks post op. Pt weight is downto 87#; she would like to see a calender runner. SN intructed her to have oncology make this referral on her first vs. Pt reports that she has been taking fluids well. See intervention summary for education details. Patient demonstrated a need for further skilled SN services for medication education, wound/skin care and post op care. Current Discharge plan: self-care RECOMMENDATION: Next visit to focus on (be specific): post op assessment and instruction, ?appetite? documented in this encounterSt. Charles Hospital10-25-2024 Patient's home Note* SN Routine - Yulia Xie RN - 01/19/2024 12:26 PM EDT SITUATION: [facility] routine visit completed today. only patient present during today's visit. patient reports the following: Allergies--reviewed Medications--reviewed current medications Falls--None BACKGROUND: Reason for Home Care: post op assessment and instruction ASSESSMENT: SN greeted at door by patient no DME and demonstrates stable gait. Patient appears in no acute distress. Patient/CG concerns verbalized today: pt verbalizes that she found out that she has colon CA at [facility] f/u vs yesterday. Vitals (see flow sheet for details): stable SN findings today: Pt sitting in recliner. See above report. She has a follow up appt with oncologyon 01/31. She states that surgeon fells that he was able to resent all of the tumor but she will nedsome follow up chemo. Pt feels that she is recovering slowly from surgery, getting stronger every day. Abdominal incision is well approximated with no signs of infection noted. Appetite has not been very good, she is taking 2-3 high ptorien supplements daily. SN also reviewed soft protein sourcesand encouraged small frequent meals. She may resume regular diet 2 weeks post op. Pt weight is downto 87#; she would like to see a calender runner. SN intructed her to have oncology make this referral on her first vs. Pt reports that she has been taking fluids well. See intervention summary for education details. Patient demonstrated a need for further skilled SN services for medication education, wound/skin care and post op care. Current Discharge plan: self-care RECOMMENDATION: Next visit to focus on (be specific): post op assessment and instruction, ?appetite? [facility] Work Phone: [phone] Telephone encounter Note* Telephone Encounter - Pepe Pablo - 01/19/2024 10:48 AM EDT Kina, Received a call from the patient, she was seen yesterday by Dr. Spring. Per patient, she receivedpaperwork from Dr. Spring for the handicap sticker, but it was missing his signature and the [facility] did not accept it. Patient is requesting a signed form to be faxed to [phone] ([facility]). Thank you [facility]10-24-2024 Telephone encounter Note* Telephone Encounter - Estee Donnelly - 01/18/2024 3:59 PM EDT Called patient scheduled first opening and added to wait list [facility]10-24-[facility]24 Miscellaneous Notes* Telephone Encounter - Estee Donnelly - 01/18/2024 3:59 PM EDT Called patient scheduled first opening and added to wait list * Telephone Encounter - Bryanna Gonzalez LPN - 01/18/2024 1:42 PM EDT Okay to schedule next flw patient appointment with either provider. Bryanna Gonzalez LPN * Telephone Encounter - Alysa Velazquez - 01/18/2024 12:50 PM EDT Patient is being referred by Dr Spring to see Oncology. DX: Colon Cancer Insurance: Medicaid [place] Patient's referral is for [place]. I spoke to patient and she would much rather be seen closer to home in [place]. I was going to warm transfer patient but she was getting another call. I advised patient I would send message for scheduling. Please review and advise documented in this encounterSt. Charles Hospital10-24-2024 Telephone encounter Note * Telephone Encounter - Bryanna Gonzalez LPN - 01/18/2024 1:42 PM EDT Okay to schedule next flw patient appointment with either provider. Bryanna Gonzalez LPN [facility]-24-2024 Telephone encounter Note* Telephone Encounter - Alysa Velazquez - 01/18/2024 12:50 PM EDT Patient is being referred by Dr Spring to see Oncology. DX: Colon Cancer Insurance: Medicaid [place] Patient's referral is for [place]. I spoke to patient and she would much rather be seen closer to home in [place]. I was going to warm transfer patient but she was getting another call. I advised patient I would send message for scheduling. Please review and advise [facility]10-24-2024 NoteC[facility]10-24-[facility] History of Present illness Narrative* Tessa Spring MD - 01/18/2024 10:17 AM EDT Images from the original note were not included. [facility] SURGERY FOLLOW UP VISIT Follow up visit after dx lap converted to ex lap and ileocecectomy on 01/04/2024 UPDATED HISTORY: Lakesha Koch is a 63 year old female who underwent a dx lap converted to ex lap and ileocecectomyon 01/04/2024. She is recovering well in general and reports that her pain is well-controlled. She took oxycodone for a few days and now only takes Tylenol as needed. She has been tolerating p.o. intake and normal bowel habits. Weight has stabilized with a BMI of 15. PHYSICAL FINDINGS OF NOTE: General: Alert and oriented x 3 Abdomen: Nondistended. Incision healed Medical Decision Making: Assessment Assessment & Diagnosis: 63-year-old female who presented in early August to an outside hospital with a perforated 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 managed conservatively with antibiotics and drains for 4 months. She underwent a dx lap converted to ex lap and ileocecectomy on 01/04/2024 and found the following: Pathology: FINAL DIAGNOSIS A. Appendix, excision: - Invasive adenocarcinoma involving appendix (see comment). - Acute 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 with serositis. - Fallopian tube with patchy acute and chronic inflammation and fibrous adhesions. B. Terminal ileum and cecum, ileocecectomy: - Invasive moderately differentiated adenocarcinoma arising in the cecum at the appendiceal orifice, with associated pericolonic abscess and direct invasion into adherent terminal ileum (see comment and synoptic report). - Twenty-two lymph nodes, negative for malignancy (0/22). Treatment plan: Pathology reviewed with the patient and her family; she has a high risk stage II colon cancer due to perforation and LVI and 22 negative lymph nodes. We discussed her case on tumor board recommended medical oncology appointment to discuss the benefits and the risks of adjuvant chemotherapy. CT chest to follow-up on the known lung nodule to complete her staging workup given the recent cancer diagnosis Will continue to follow Tessa Spring MD [facility] / [facility] * David Velazquez - 01/18/2024 10:00 AM EDT New/Est pt: Est Reason for apt: Post Op: Lx converted to open ileocecectomy 01/03/2024 Brief Summary: SURGERY/PROCEDURE(S): Diagnostic laparoscopy Exploratory laparotomy Drainage of intraabdominal abscess Ileocecectomy End-to-side ileo-ascending hand sawn anastomosis Bilateral TAP blocks (transversus abdominis block with guidance) POST-OP/POST-PROCEDURE DIAGNOSIS: Chronic perforated 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 with abdominal abscess FINAL DIAGNOSIS A. Appendix, excision: - Invasive adenocarcinoma involving appendix (see comment). - Acute 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 with serositis. - Fallopian tube with patchy acute and chronic inflammation and fibrous adhesions. B. Terminal ileum and cecum, ileocecectomy: - Invasive moderately differentiated adenocarcinoma arising in the cecum at the appendiceal orifice, with associated pericolonic abscess and direct invasion into adherent terminal ileum (see comment and synoptic report). - Twenty-two lymph nodes, negative for malignancy (0/22). David Velazquez GREASER AND OILER Pouncing Lathe Operator for Dr. Hutchison and Bryanna Luna, BALL THREAD MACHINE TENDER Covering for Dr. Spring documented in this encounterSt. [facility]10-[facility]24 [facility]10-22-2024 Miscellaneous Notes* PT ROUTINE/REASSESSMENT/RECERT/CASE MGMT - Dash Leonard, PT - 01/16/2024 9:30 AM EDT SITUATION: Patient reports the following since the last homecare visit: medications/allergies--no changes, no fall. patient reports she had an infection for 2 months. States her sister was here for about 1 week. States she uses a quad cane when outside the home. BACKGROUND: Diagnoses (reason for Home Care): SURGERY/PROCEDURE(S): Diagnostic laparoscopy Exploratory laparotomy Drainage of intraabdominal abscess Ileocecectomy End-to-side ileo-ascending hand sawn anastomosis Bilateral TAP blocks (transversus abdominis block with guidance) Weight Bearing/Precaution Changes: no changes. ASSESSMENT: Focus of visit gait training. Plan of care, goals, and visit frequency reviewed and agreed upon with patient and/or caregiver. Current Discharge Plan: independent with home exercise program Anticipate discharge by 02-10-24. RECOMMENDATION: Next visit to focus on gait training. See intervention summary for intervention/education details. documented in this encounterSt. [facility]10-22-2024 Patient's home Note* PT ROUTINE/REASSESSMENT/RECERT/CASE MGMT - Dash Leonard, PT - 01/16/2024 9:30 AM EDT SITUATION: Patient reports the following since the last homecare visit: medications/allergies--no changes, no fall. patient reports she had an infection for 2 months. States her sister was here for about 1 week. States she uses a quad cane when outside the home. BACKGROUND: Diagnoses (reason for Home Care): SURGERY/PROCEDURE(S): Diagnostic laparoscopy Exploratory laparotomy Drainage of intraabdominal abscess Ileocecectomy End-to-side ileo-ascending hand sawn anastomosis Bilateral TAP blocks (transversus abdominis block with guidance) Weight Bearing/Precaution Changes: no changes. ASSESSMENT: Focus of visit gait training. Plan of care, goals, and visit frequency reviewed and agreed upon with patient and/or caregiver. Current Discharge Plan: independent with home exercise program Anticipate discharge by 02-10-24. RECOMMENDATION: Next visit to focus on gait training. See intervention summary for intervention/education details. [facility] Work Phone: [phone] Miscellaneous Notes* PT EVALUATION - Shelby Brown, PT - 01/13/2024 1:36 PM EDT SITUATION: only patient present during today's visit. patient reports the following since the last homecare visit: medications/allergies--no changes, no fall. patient reports all things considered I'm doing better i think. BACKGROUND: Diagnoses (reason for Home Care): [facility] on 01/03/24-01/08/24. Encounter for surgical aftercare following surgery on the digestive system SURGERY/PROCEDURE(S): Diagnostic laparoscopy Exploratory laparotomy Drainage of intraabdominal abscess Ileocecectomy End-to-side ileo-ascending hand sawn anastomosis Bilateral TAP blocks (transversus abdominis block with guidance) Pt was treated for a perferated appendix at the end of July with drain and antibiotics Then hospitalized 09/07-09/26 with abdominal infection SNF x 2 weeks Then the drains were removed in October She cont to have illness /infection [facility] 01/02 - for an ileocecotomy PLF: lives alone , functionally indep at communitu level. + works, + drives 2 story home , 1 step entry . main floor set up for now. Bath on main level. Bedroom upstairs -15 steps 1 rail ACTIVE PROBLEM LIST Iron Deficiency Anemia Anorexia Anxiety and Depression Severe Protein-Calorie Malnutrition (Hcc) Focal Epilepsy (Hcc) Seizures (Hcc) Gait Abnormality Muscular Deconditioning Failure to Thrive in Adult At Risk for Delirium Inflammation of Colonic Mucosa Bowel Wall Thickening Feeding Difficulties Perforated Appendicitis Weight Bearing or Surgical Precautions: no lifting >15 lbs ASSESSMENT: [facility]. Reviewed and explained homecare services. Plan of care, goals, and visit frequency developed, reviewed, and agreed upon with patient and/or caregiver. Patient Goal: get my strength back Patient will benefit from continued physical therapy to address the following deficits: strength, balance, gait, transfers and stair negotiation. Current Discharge Plan:independent with home exercise program. Anticipate discharge by tbd RECOMMENDATION: Next visit to focus on establish hep , address transfers ( maddy ) commode See intervention summary for intervention/education details. documented in this encounterSt. [facility] Hospital10-19-2024 Patient's home Note* PT EVALUATION - Shelby Brown, PT - 01/13/2024 1:36 PM EDT SITUATION: only patient present during today's visit. patient reports the following since the last homecare visit: medications/allergies--no changes, no fall. patient reports all things considered I'm doing better i think. BACKGROUND: Diagnoses (reason for Home Care): [facility] on 01/03/24-01/08/24. Encounter for surgical aftercare following surgery on the digestive system SURGERY/PROCEDURE(S): Diagnostic laparoscopy Exploratory laparotomy Drainage of intraabdominal abscess Ileocecectomy End-to-side ileo-ascending hand sawn anastomosis Bilateral TAP blocks (transversus abdominis block with guidance) Pt was treated for a perferated appendix at the end of July with drain and antibiotics Then hospitalized 09/07-09/26 with abdominal infection SNF x 2 weeks Then the drains were removed in October She cont to have illness /infection [facility] 01/02 - for an ileocecotomy PLF: lives alone , functionally indep at communitu level. + works, + drives 2 story home , 1 step entry . main floor set up for now. Bath on main level. Bedroom upstairs -15 steps 1 rail ACTIVE PROBLEM LIST Iron Deficiency Anemia Anorexia Anxiety and Depression Severe Protein-Calorie Malnutrition (Hcc) Focal Epilepsy (Hcc) Seizures (Hcc) Gait Abnormality Muscular Deconditioning Failure to Thrive in Adult At Risk for Delirium Inflammation of Colonic Mucosa Bowel Wall Thickening Feeding Difficulties Perforated Appendicitis Weight Bearing or Surgical Precautions: no lifting >15 lbs ASSESSMENT: [facility]. Reviewed and explained homecare services. Plan of care, goals, and visit frequency developed, reviewed, and agreed upon with patient and/or caregiver. Patient Goal: get my strength back Patient will benefit from continued physical therapy to address the following deficits: strength, balance, gait, transfers and stair negotiation. Current Discharge Plan:independent with home exercise program. Anticipate discharge by tbd RECOMMENDATION: Next visit to focus on establish hep , address transfers ( maddy ) commode See intervention summary for intervention/education details. [facility] Work Phone: [phone] Telephone encounter Note* Telephone Encounter - Pricila Peace RN - 01/11/2024 8:52 PM EDT Kina. I am the homeopathic doctor who saw Lakesha today for SOC. When I ran patients medication interaction report it came back as a possible severe interaction between: Diflucan and Oxycodone. Wanted to make you aware. Thank you. Pricila Peace RN [facility] Work Phone: [phone] Miscellaneous Notes* Telephone Encounter - Pricila Peace RN - 01/11/2024 8:52 PM EDT Kina. I am the homeopathic doctor who saw Lakesha today for SOC. When I ran patients medication interaction report it came back as a possible severe interaction between: Diflucan and Oxycodone. Wanted to make you aware. Thank you. Pricila Peace RN documented in this encounterSt. Charles Hospital10-17-2024 Miscellaneous Notes* SN SOC - Pricila Peace RN - 01/11/2024 4:41 PM EDT SITUATION: [facility] SOC visit completed today. sister also present during today's visit. patient reports the following: Allergies--reviewed Medications--full medication reconciliation completed Falls--None DME-Reviewed and added to chart BACKGROUND: Discharged/Referral from acute care hospital on 01/08/24 following treatment for .Encounter for surgical aftercare following surgery on the digestive system SURGERY/PROCEDURE(S): 1.Diagnostic laparoscopy 2.Exploratory laparotomy 3.Drainage of intraabdominal abscess 4.Ileocecectomy 5.End-to-side ileo-ascending hand sawn anastomosis 6.Bilateral TAP blocks (transversus abdominis block with guidance) Pertinent referral information or other diagnoses that may affect plan of care: Iron Deficiency Anemia Anorexia Anxiety and Depression Severe Protein-Calorie Malnutrition (Hcc) Focal Epilepsy (Hcc) Seizures (Hcc) Gait Abnormality Muscular Deconditioning Failure to Thrive in Adult At Risk for Delirium Inflammation of Colonic Mucosa Bowel Wall Thickening Feeding Difficulties Perforated Appendicitis ASSESSMENT: SN greeted at door by caregiver. Upon entrance patient found in chair Patient appears in no acute distress. Patient lives at home alone. Home environment: clean and uncluttered. SOC booklet reviewed & completed with patient and consent obtained for Home Care services. Patient/CG concerns verbalized today: none Vitals (see flow sheet for details): stable SN findings today: pts sister greets sn at door. pt found sitting in kitchen at table. pt is pleasant and cooperative with sn. sn reviewed [facility] booklet with pt. pt is in agreement with SN and PT visits. sn obtained signature for consent. pt was dc'd home from hosp 3 days ago for surgery on GI system. pt appears thin and tells sn she has lost a lot of weight since becoming sick months ago. pt lives alone in her own home. pt does not have to climb stairs and her bed, bath and living space is onsame floor. pts sister is staying with her this week to help her out. pt has 3 sisters, 2 brothers and several friends and neighbors to assist her as needed. sn requested pts dc paperwork but neither sister or pt could find it they feel they threw it out. sn instead reviewed pts dc paperwork in chart with pt. pt already has f/u visits made and has a ride to and from there. sn reviewed pts medications with pt. pt has all ordered meds in the home. pt endorses she takes them as directed. pt has sugrical incsion sites to her abdominal area, lap sites and also a vertical incision. all incisions are clean, dry, intact and well approximated, with skin glue intact. sn noted NO s/s infection to areas. sn taught pt s/s infection to watch for and when to call her surgeon. sn taught pt to let skin glue fall off and not to pick it off, pt voiced understanding. pt denies any falls since arriving home, sn taught pt falls prevention and safety. pt has a dog but it is staying with friends until pt is able to care for him safely. pts gait is slow and steady, pt is afraid to fall and moves slowly. pt uses a cane when she leaves the home for stability. pt tells sn her appetite is poor. sn taught toto eat small meals or snacks as she can tolerate. pt does have protein shakes in the home and endorses she drinks 1- 2 of these a day. pt does c/o diarrhea and states she has had this for a long time r/t GI issues. sn taught pt if her abx she is taking cause GI distress to eat dry toast or a cup of yogurt to help with this. pt denies any issues. pt denies any SOB or chest pain. pts vitals arewnl. pts lungs are clear. sn reviewed a visit schedule with pt See intervention summary for education details and skills performed. Plan of care and visit frequency established with patient and plan of care agreed upon. Patient demonstrated a need for further skilled SN services for chronic disease management & education, wound/skin care and safety. RECOMMENDATION: Visit Frequency: 1w9 Need for additional services: Patient agreeable to PT referrals. Patient declined N/A referrals. Additional concerns to be followed up on: NONE Next visit to focus on (be specific): incision check, appetite any better? diarrhea? documented in this encounterSt. Charles Hospital10-17-2024 Patient's home Note* HH SN SOC - Pricila Peace RN - 01/11/2024 4:41 PM EDT SITUATION: [facility] SOC visit completed today. sister also present during today's visit. patient reports the following: Allergies--reviewed Medications--full medication reconciliation completed Falls--None DME-Reviewed and added to chart BACKGROUND: Discharged/Referral from acute care hospital on 01/08/24 following treatment for .Encounter for surgical aftercare following surgery on the digestive system SURGERY/PROCEDURE(S): 1.Diagnostic laparoscopy 2.Exploratory laparotomy 3.Drainage of intraabdominal abscess 4.Ileocecectomy 5.End-to-side ileo-ascending hand sawn anastomosis 6.Bilateral TAP blocks (transversus abdominis block with guidance) Pertinent referral information or other diagnoses that may affect plan of care: Iron Deficiency Anemia Anorexia Anxiety and Depression Severe Protein-Calorie Malnutrition (Hcc) Focal Epilepsy (Hcc) Seizures (Hcc) Gait Abnormality Muscular Deconditioning Failure to Thrive in Adult At Risk for Delirium Inflammation of Colonic Mucosa Bowel Wall Thickening Feeding Difficulties Perforated Appendicitis ASSESSMENT: SN greeted at door by caregiver. Upon entrance patient found in chair Patient appears in no acute distress. Patient lives at home alone. Home environment: clean and uncluttered. SOC booklet reviewed & completed with patient and consent obtained for Home Care services. Patient/CG concerns verbalized today: none Vitals (see flow sheet for details): stable SN findings today: pts sister greets sn at door. pt found sitting in kitchen at table. pt is pleasant and cooperative with sn. sn reviewed [facility] booklet with pt. pt is in agreement with SN and PT visits. sn obtained signature for consent. pt was dc'd home from hosp 3 days ago for surgery on GI system. pt appears thin and tells sn she has lost a lot of weight since becoming sick months ago. pt lives alone in her own home. pt does not have to climb stairs and her bed, bath and living space is onsame floor. pts sister is staying with her this week to help her out. pt has 3 sisters, 2 brothers and several friends and neighbors to assist her as needed. sn requested pts dc paperwork but neither sister or pt could find it they feel they threw it out. sn instead reviewed pts dc paperwork in chart with pt. pt already has f/u visits made and has a ride to and from there. sn reviewed pts medications with pt. pt has all ordered meds in the home. pt endorses she takes them as directed. pt has sugrical incsion sites to her abdominal area, lap sites and also a vertical incision. all incisions are clean, dry, intact and well approximated, with skin glue intact. sn noted NO s/s infection to areas. sn taught pt s/s infection to watch for and when to call her surgeon. sn taught pt to let skin glue fall off and not to pick it off, pt voiced understanding. pt denies any falls since arriving home, sn taught pt falls prevention and safety. pt has a dog but it is staying with friends until pt is able to care for him safely. pts gait is slow and steady, pt is afraid to fall and moves slowly. pt uses a cane when she leaves the home for stability. pt tells sn her appetite is poor. sn taught toto eat small meals or snacks as she can tolerate. pt does have protein shakes in the home and endorses she drinks 1- 2 of these a day. pt does c/o diarrhea and states she has had this for a long time r/t GI issues. sn taught pt if her abx she is taking cause GI distress to eat dry toast or a cup of yogurt to help with this. pt denies any issues. pt denies any SOB or chest pain. pts vitals arewnl. pts lungs are clear. sn reviewed a visit schedule with pt See intervention summary for education details and skills performed. Plan of care and visit frequency established with patient and plan of care agreed upon. Patient demonstrated a need for further skilled SN services for chronic disease management & education, wound/skin care and safety. RECOMMENDATION: Visit Frequency: 1w9 Need for additional services: Patient agreeable to PT referrals. Patient declined N/A referrals. Additional concerns to be followed up on: NONE Next visit to focus on (be specific): incision check, appetite any better? diarrhea? [facility] Work Phone: [phone] Telephone encounter Note* Telephone Encounter - Rema Beltre RN - 01/10/2024 3:40 PM EDT Returned call to Bianka joy sister. S/p 01/02 - diagnostic lap, appendectomy, Ileocecectomy Patient discharged home on Monday. C/o ongoing nausea that started this morning. -only able to take in small amounts of water at a time, tried protein shake and pudding that she spit back up -small amount of vomiting twice today -was able to keep down Tylenol and other normal medications -has not had any oxycodone today -had a BM yesterday and 2 soft BM's today Instructed to continue with small amounts of water. Try jell-o, chicken broth as tolerated. Will touch base with Dr. Spring about sending antinausea medication to her pharmacy. Patient declines theneed to go to the ER. States she does not feel dehydrated but understands to seek medical attentionif starting to feel dehydrated. Patient urinating fine. Will touch base with patient tomorrow carlota helton [facility]10-16-[facility] Miscellaneous Notes* Telephone Encounter - Rema Beltre RN - 01/10/2024 3:40 PM EDT Returned call to Bianka - benita sister. S/p 01/02 - diagnostic lap, appendectomy, Ileocecectomy Patient discharged home on Monday. C/o ongoing nausea that started this morning. -only able to take in small amounts of water at a time, tried protein shake and pudding that she spit back up -small amount of vomiting twice today -was able to keep down Tylenol and other normal medications -has not had any oxycodone today -had a BM yesterday and 2 soft BM's today Instructed to continue with small amounts of water. Try jell-o, chicken broth as tolerated. Will touch base with Dr. Spring about sending antinausea medication to her pharmacy. Patient declines theneed to go to the ER. States she does not feel dehydrated but understands to seek medical attentionif starting to feel dehydrated. Patient urinating fine. Will touch base with patient tomorrow carlota marieSilvestre * Telephone Encounter - Yanna Rousseau - 01/10/2024 3:19 PM EDT Please call patient's sister, Bianka at [phone]. Patient had surgery on 01/02 discharged on Sunday 01/07. Started having nausea & vomitting all day today. Please call Bianka and elisha, she is with the patient. Perforated Appendix. Thank you! documented in this encounterSt. Charles Hospital10-16-2024 Telephone encounter Note * Telephone Encounter - Yanna Rousseau - 01/10/2024 3:19 PM EDT Please call patient's sister, Bianka at [phone]. Patient had surgery on 01/02 discharged on Sunday 01/07. Started having nausea & vomitting all day today. Please call Bianka and elisha, she is with the patient. Perforated Appendix. Thank you! [facility]10-14-2024 [facility]10-14-2024 [facility] 01-08-2024 [facility]10-14-2024 Telephone encounter Note* Telephone Encounter - Rebecca Jiang LPN - 01/08/2024 1:20 PM EDT Spoke with Alexx Oglesby is no longer at the practice . She stated Christie Sánchez has beenfollowing the [facility] [place]. Alexx is asking if Christie Baptiste will follow for [facility] and will return the call . [facility] Work Phone: [phone] Miscellaneous Notes* Telephone Encounter - Rebecca Jiang LPN - 01/08/2024 1:20 PM EDT Spoke with Alexx Oglesby is no longer at the practice . She stated Christie Gonzalo has beenfollowing the [facility] Koch. Alexx is asking if Christie Baptiste will follow for [facility] and will return the call . * Telephone Encounter - Rebecca Jiang LPN - 01/08/2024 12:23 PM EDT Left a VM for Mary Moss regarding HHC order. documented in this encounterSt. Charles Hospital10-14-2024 Telephone encounter Note * Telephone Encounter - Olga Maria - 01/08/2024 1:05 PM EDT Date/Time: 01/08/2024 1:05 PM Spoke with LAKESHA KOCH @ phone #: [phone] (Home Phone) - Preferred # for contact: [phone] Have you received help from a home care company in the last 60 days? NO Are you agreeable to [facility] services? YES What address will we be seeing you at? [address] [place] [address] Do you have any upcoming appointments or things we need to schedule around? 01/15/24 Do you have a teachable CG or can you manage your care independently? CG Have you received the flu shot? NO If so, when and where? N/A [facility] Work Phone: [phone] Miscellaneous Notes* Telephone Encounter - Olga Maria - 01/08/2024 1:05 PM EDT Date/Time: 01/08/2024 1:05 PM Spoke with LAKESHA KOCH @ phone #: [phone] (Home Phone) - Preferred # for contact: [phone] Have you received help from a home care company in the last 60 days? NO Are you agreeable to [facility] services? YES What address will we be seeing you at? [address] [place] [address] Do you have any upcoming appointments or things we need to schedule around? 01/15/24 Do you have a teachable CG or can you manage your care independently? CG Have you received the flu shot? NO If so, when and where? N/A documented in this encounterSt. Charles Hospital10-14-2024 Telephone encounter Note * Telephone Encounter - Rebecca Jiang LPN - 01/08/2024 12:23 PM EDT Left a VM for Mary Moss regarding C order. [facility]24 NoteWest [facility] [id number] [facility] 01-06-2024 [facility]10-11-2024 [facility]10-11-2024 Note [facility] [id number] NoteWest [facility]ox[facility] [id number] NoteHNO ID: [id number] Author: IRON SALGADO RN Service: Nursing Author Type: Registered Nurse Type: Nursing Progress Note Filed: 01/04/2024 05:46 Note Text: Other: 0545- pt's hgb dropped to 7.6 from 9.6 . Page sent out to [facility] 01-03-2024 [facility]10-09-2024 [facility]10-09-2024 Note [facility] [id number] [facility]10-03-2024 Telephone encounter Note* Telephone Encounter - Rema Beltre RN - 12/28/2023 1:[address] Spring sent pain medication to patients preferred pharmacy. Patient updated. [facility] Miscellaneous Notes* Telephone Encounter - Rema Beltre RN - 12/28/2023 1:[address] Spring sent pain medication to patients preferred pharmacy. Patient updated. * Telephone Encounter - Rema Beltre RN - 12/27/2023 11:27 AM EDT Returned call and spoke to patient. Patient explained that her lower abdominal pain is intermittent, but a stronger pain now. Rating it a 6/10 at its worst. Patient was asking if a stronger medication could be prescribed just to get her to surgery next Tuesday 01/02 -- Tylenol does not seem to be helping. Informed I would ask Dr. Spring as we typically don't give pain medications prior to surgery, butwould check with him and let her know. Verified pharmacy in [facility] in [place] is her preferred pharmacy. Patient thankful for return call. * Telephone Encounter - Pepe Pablo - 12/27/2023 10:56 AM EDT Kina, Received a call from the patient. She said she is experiencing pain in lower abdomen and wondering if Dr. Spring can prescribe medication stronger than Tylenol as her surgery is scheduled on 01/03/2024. [facility] History and physical note * Lisbeth Alford PA-C - 12/28/2023 9:20 AM EDT HISTORY AND PHYSICAL EXAMINATION SERVICE DATE: 12/28/2023 SERVICE TIME: 10:48 AM PRIMARY CARE PHYSICIAN: Mary Moss CNP, BALL THREAD MACHINE TENDER REASON FOR VISIT: Lakesha Koch is a 63 year old female who is scheduled for Procedure(s): LAPAROSCOPY DIAGNOSTIC ABDOMEN, PERITONEUM AND OMENTUM (N/A) LAPAROSCOPIC APPENDECTOMY ADULT (N/A) LAPAROSCOPIC ENTEROTOMY FOR EXPLORATION OF SMALL BOWEL (N/A) at the request of Dr. Tessa Springfor consultation. My final recommendation will be communicated back to the requesting physician by way of shared medical record or letter. Subjective The patient has the following: ACTIVE PROBLEM LIST Iron Deficiency Anemia Anorexia Anxiety and Depression Severe Protein-Calorie Malnutrition (Hcc) Focal Epilepsy (Hcc) Seizures (Hcc) Gait Abnormality Muscular Deconditioning Failure to Thrive in Adult At Risk for Delirium Inflammation of Colonic Mucosa Bowel Wall Thickening Feeding Difficulties COVID-19 Immunization Status Overdue - Covid-19 Vaccine () Overdue since 11/26/2023 04/26/2022 Imm Admin: COVID-19 vaccine, age 12+ yr, bivalent (PFIZER-BIONTECH) 03/01/2021 Imm Admin: COVID-19 original vaccine, age 12+ yr, monovalent (PFIZER- BIONTECH - PURPLE TOP) 07/01/2020 Imm Admin: COVID-19 original vaccine, age 12+ yr, monovalent (PFIZER- BIONTECH - PURPLE TOP) Only the first 3 history entries have been loaded, but more history exists. CHIEF COMPLAINT: Pre-Op HPI: Lakesha Koch is a 63 year old female presenting for pre-anesthesia consultation. Pt has history of perforated appendix. Above procedure recommended to manage symptoms. Procedure scheduled on 01/03/2024 at [facility]. REVIEW OF SYSTEMS: General: No weight loss, malaise or fevers. Neurological: Positive for: seizures (no LOC with seizures - last in may). Negative for: headaches, multiple sclerosis, Parkinson's disease and strokes. Respiratory: Negative for: asthma, COPD, current cough, dyspnea, tobacco use, URI < 2 weeks and obstructive sleep apnea. Cardiovascular: Negative for: AICD/PPM, anticoagulation therapy, arrhythmia, CAD, chest pain, CHF, DVT/PE, hyperlipidemia, hypertension, recent MS, murmur/valvular heart disease, open heart surgery and valve surgery. GI: Positive for: abdominal pain Negative for: dysphagia, GERD, liver disease, nausea and vomiting. : Negative for: on dialysis, dysuria, hematuria and renal failure. Endocrine: Negative for: diabetes mellitus, hyperthyroidism and hypothyroidism. Hematology: Positive for: anemia. Negative for: bruises/bleeds easily, factor V Leiden, hemophilia, thrombocytopenia, von Willebrand disease and chronic anti-coagulation/platelet meds. Oncology: No history of CA metastasis, chemo within 30 days, or radiotherapy within 90 days. No history of oncological symptoms or problems. Psych: Positive for: anxiety and depression. Negative for: bipolar disorder. Musculoskeletal: Negative for joint pain or swelling, back pain or muscle pain. Skin: Negative for lesions, rash and itching. PAST MEDICAL HISTORY Diagnosis Date Anemia Anorexia nervosa Bowel wall thickening Daily consumption of alcohol Depression Essential tremor Failure to thrive in adult Feeding difficulties Focal epilepsy (HCC) Gait abnormality Inflammation of colonic mucosa Intestinal obstruction (HCC) Migraine Migraine without aura 05/03/2019 Muscular deconditioning Perforated 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 with localized peritonitis, gangrene and abscess Psoas abscess, right (HCC) Seizures (HCC) Severe protein-calorie malnutrition (HCC) PAST SURGICAL HISTORY Procedure Laterality Date EXPLORATORY OF ABDOMEN 09/19/2023 ROCIO DRAIN TO BULB SUCTION 09/01/2023 for acute 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 with perforation, localized peritonitis, and gangrene. FAMILY HISTORY Problem Relation Age of Onset Prostate Cancer Father Melanoma Sister Anesthesia Problems No Family History Social History Tobacco Use Smoking status: Former Current packs/day: 0.00 Average packs/day: 1 pack/day for 11.0 years (11.0 ttl pk-yrs) Types: Cigarettes Start date: 1984 Quit date: 1995 Years since quittin.7 Passive exposure: Past Smokeless tobacco: Never Vaping Use Vaping status: Never Used Substance Use Topics Alcohol use: Not Currently Comment: sober, quit 3 years ago Drug use: Not Currently Types: Marijuana Comment: unknown Prior to Admission medications as of 12/28/23 0920 Medication Sig Last Dose Taking busPIRone (BUSPAR) 7.5 mg tablet Taking Yes alendronate (FOSAMAX) 70 mg tablet Taking Yes sertraline (ZOLOFT) 50 mg tablet Taking Yes divalproex ER (DEPAKOTE ER) 250 mg 24 hr tablet Take 2 tablets by mouth two times a day. Taking Yes amoxicillin-clavulanate potassium (AUGMENTIN) 875-125 mg per tablet Take 1 tablet by mouth every 12hours. Taking Yes Food Supplement, Lactose-Free (ENSURE ACTIVE HIGH PROTEIN) liqd Take 237 mL by mouth three times a day with meals. Taking Yes oxyCODONE IR (ROXICODONE) 5 mg immediate release tablet Take 1 tablet by mouth every 8 hours as needed for pain for up to 7 days. fluconazole (DIFLUCAN) 200 mg tablet TAKE 1 TABLET BY MOUTH with signs OF yeast infection. if no results in 72 hours take the other tablet Patient not taking: Reported on 12/18/2023 Not Taking lacosamide (VIMPAT) 100 mg tab Take 1 tablet by mouth two times a day for 30 days. Patient not taking: Reported on 12/18/2023 ciprofloxacin HCl (CIPRO) 500 mg tablet 1 tablet by ORAL/FEEDING TUBE route every 12 hours at 6 am and 6 pm. Patient not taking: Reported on 12/28/2023 Not Taking senna (SENOKOT) 8.6 mg tab 1 tablet by ORAL/FEEDING TUBE route two times a day. Patient not taking: Reported on 12/18/2023 zinc oxide (DESITIN) 13 % cream Apply to affected area as needed. Patient not taking: Reported on 12/18/2023 Food Supplement, Lactose-Free (ENSURE HIGH PROTEIN) liqd Take 237 mL by mouth two times a day. 2 times daily between meals Food Supplement, Lactose-Free (ENSURE CLEAR) liqd Take 237 mL by mouth daily after lunch. PM Snack pantoprazole DR (PROTONIX) 40 mg tablet Take 1 tablet by mouth once daily. Patient not taking: Reported on 12/18/2023 No medication comments found. ALLERGIES Allergen Reactions Erythromycin Unknown Azithromycin Unknown Objective PHYSICAL EXAM: General: alert and oriented and malnourished. Pertinent negatives noted - not distressed. Skin: normal color, no rash or lesions. HEENT: EOM intact, pupils equal round and pupils reactive to light. Pertinent negatives noted - no carotid bruit. Cardiovascular: regular rate and rhythm, normal S1 and S2, no rub, murmurs, or gallop. Respiratory: normal breath sounds, no wheezes or crackles. No chest wall deformity or tenderness. Abdomen: bowel sounds present and soft. Pertinent negatives noted - not tender. Extremities: no deformity, no edema or tenderness, no joint swelling or clubbing. Neurological: normal cognition and motor skills. Gait normal. No weakness or sensory deficit. PAIN ASSESSMENT: Pain Pain Level: 6 Pain Location: Abdomen-Right Lower Quadrant Description: Sharp Frequency: Intermittent VITALS: BP 94/68 Pulse 89 Temp 97.4 Resp 16 Ht 5' 4 (1.63m) Wt 92 lb 13 oz (42.1kg) SpO2 99% BMI 15.92 kg/(m^2). Diagnostic tests reviewed for today's visit: Lab Value Units Date High Low HB 11.1 g/dL 12/19/2023 15.5 11.5 HCT 35.0 % 12/19/2023 46.0 36.0 WBC 8.07 k/uL 12/19/2023 11.00 3.70 PLT 329 k/uL 12/19/2023 400 150 NA 138 mmol/L 12/19/2023 144 136 K 4.3 mmol/L 12/19/2023 5.1 3.7 GLUC 98 mg/dL 12/19/2023 99 74 BUN 31 mg/dL 12/19/2023 21 7 CREAT 0.92 mg/dL 12/19/2023 0.96 0.58 PTSEC 12.4 sec 09/21/2023 13.0 9.7 INR 1.2 no uni* 09/21/2023 1.3 0.9 APTT 26.6 sec 09/21/2023 32.4 23.0 ALT <5 U/L 12/19/2023 38 7 AST 9 U/L 12/19/2023 35 13 TBILI <0.2 mg/dL 12/19/2023 1.3 0.2 TSH 1.540 mIU/L 12/19/2023 4.200 0.270 Lab Value Units Date High Low HCGQT No results within date range. UHCG No results within date range. HCG, BODY* No results within date range. Lab Value Units Date High Low ABORHD No results within date range. ABSCREEN No results within date range. No results found for: HBA1C Recent Results (from the past 8760 hour(s)) ECG COMPLETE Collection Time: 09/14/23 1:16 PM Result Value Ventricular Rate 97 Atrial Rate 98 P-R Interval 120 QRS Duration 64 QT Interval 348 QTC Calculation (Bazett) 441 Calculated P [place] 76 Calculated R [place] 8 Calculated T [place] 70 Impression NORMAL SINUS RHYTHM LOW VOLTAGE QRS, CONSIDER PULMONARY DISEASE, PERICARDIAL EFFUSION, OR NORMAL VARIANT NONSPECIFIC T WAVE ABNORMALITY ABNORMAL ECG Confirmed by MALINI PÉREZ MD ([id number]) on 09/30/2023 11:21:02 AM Recent Results (from the past 49171 hour(s)) ECHO Collection Time: 09/18/23 8:28 AM Impression CONCLUSIONS: - Technically difficult exam due to suboptimal positioning and body habitus. - Exam indication: Murmur - The left ventricle is normal in size. Left ventricular systolic function is normal. EF = 61 5% (2D 4-ch.) Indeterminate left ventricular diastolic dysfunction. 2D linear dimensions not reported due to suboptimal PLAX imaging. - The right ventricle is normal in size. Right ventricular systolic function is normal. - The left atrial cavity is moderately dilated. - Aortic valve morphology not well visualized. - There is a small pericardial effusion adjacent to the RV and LV measuring 0.9 cm and 0.7 cm respectively. The IVC is normal in diameter and collapses > 50% with inspiration. There is no significant variation in peak E-wave inflows across MV and TV. Overall, no echocardiographic evidence to suggest tamponade physiology. - The patient has not had a prior CC echocardiographic exam for comparison. * * * Final * * * Assessment Patient has the following medical conditions which may affect myah-operative course: Seizures (HCC) Assessment: Follows with neuro for focal seizures. On rx. No seizure since May 2023. Iron deficiency anemia Assessment: Improving. Obtaining type and screen today. Hemoglobin (g/dL) Date Value 12/19/2023 11.1 09/26/2023 9.0 09/26/2023 8.8 12/29/2020 12.5 HGB (g/dL) Date Value 01/28/2019 14.0 Hematocrit (%) Date Value 12/19/2023 35.0 09/26/2023 27.7 09/26/2023 27.3 12/29/2020 39.6 01/28/2019 42.1 Anxiety and depression Assessment: Stable per pt, on rx. Inflammation of colonic mucosa Assessment: No new symptoms currently. Follows with GI now. CT 09/16/2023 with Stable nonspecific terminal ileitis which is most suspicious for inflammatory bowel (Crohn's) disease given adjacent phlegmonous process but could relate to other infectious process Failure to thrive in adult Assessment: Deconditioning and protein-calorie malnutrition. Drinking Boost now consistently. Hunt Activity Status Index: METS: Climb a flight of stairs or walk up a hill (5.50 METs) DASI Score: 5.5 Patient denies any chest pain or undue shortness of breath with the above physical activity. Clinical Frailty Scale: 3. Well, with treated comorbid disease STOP-Bang Score: Patient over 50 years old Denies snoring loudly Denies feeling tired, fatigued, or sleepy during the daytime Has not been observed to stop breathing or choking/gasping during sleep Denies having high blood pressure BMI less than or equal to 35 kg/m^2 Does not have a large neck Non-male patient STOP-Bang Score: 1 [id number] Score: Age: <65 Sex: female CHF history: No Hypertension history: No Stroke/TIA/thromboembolism history: No Vascular disease history: No Diabetes history: No [id number] Score: 1 ANESTHESIA FINDINGS: Intubation History: No history of difficult intubation. No abnormal airway history Significant Anesthesia Considerations: none Airway History: No history of difficult airway No abnormal airway history I - PHYSICAL EVALUATION AIRWAY Patient intubated: No. Tracheostomy tube not present Mallampati: II. TM distance: >3 FB. Neck ROM: full ROM without neurological symptoms. Mouth opening: adequate. Short neck: no. Thick neck: no Lip Bite Test: I Microretrognathia/Micronagthia/Recessed Chin: No DENTAL Dental findings: missing tooth/teeth. Dentures, upper: complete. Additional comments: Upper caps . II - ANESTHESIA PLAN Anesthetic Plan: other Anesthetic plan additional comments: *PACC/TCI - anesthesia choice. Beta Luis Monitoring Plan Post Procedure Analgesic Plan Prepared for Surgery: optimally prepared for surgery. Type and screen completed today d/t anemia and possible open abdominal surgery CONSULTS: Patient does not require consults for optimization at this time Planned Anesthetic: other anesthesia choice The Following Tests/Procedures Have Been Initiated: Orders Placed This Encounter Type and Screen, 30 day Standing Status: Future Number of Occurrences: 1 Standing Expiration Date: 03/28/2024 Scheduling Instructions: A 30-day Type and Screen test has been ordered for you. This should be scheduled to be collected noearlier than 29 days before your scheduled procedure. If you receive blood products (red blood cells, platelets, plasma, cryoprecipitate) at any point before your procedure or are a female and become, please inform your provider. This test will be canceled, and a standard type and screen will need to be ordered to be collected within 3 days of your procedure. Order Specific Question: [facility] or Procedure: Answer: [place] Order Specific Question: Status of surgery/procedure: Answer: Scheduled Order Specific Question: Date of surgery/procedure: Answer: 01/03/2024 Instructions Given to Patient: Instructions located in the after visit summary. Patient given verbal and written preop instructions and voices comprehension and compliance. SIGNATURE: Lisbeth Alford PA-C PATIENT NAME: Lakesha Koch DATE: 12/28/2023 TIME: 10:48 AM PAGER[facility]CONTACT [facility] History and physical note* Lisbeth Alford PA- C - 12/28/2023 9:20 AM EDT HISTORY AND PHYSICAL EXAMINATION SERVICE DATE: 12/28/2023 SERVICE TIME: 10:48 AM PRIMARY CARE PHYSICIAN: Mary Moss CNP, BALL THREAD MACHINE TENDER REASON FOR VISIT: Lakesha Koch is a 63 year old female who is scheduled for Procedure(s): LAPAROSCOPY DIAGNOSTIC ABDOMEN, PERITONEUM AND OMENTUM (N/A) LAPAROSCOPIC APPENDECTOMY ADULT (N/A) LAPAROSCOPIC ENTEROTOMY FOR EXPLORATION OF SMALL BOWEL (N/A) at the request of Dr. Tessa Springfor consultation. My final recommendation will be communicated back to the requesting physician by way of shared medical record or letter. Subjective The patient has the following: ACTIVE PROBLEM LIST Iron Deficiency Anemia Anorexia Anxiety and Depression Severe Protein-Calorie Malnutrition (Hcc) Focal Epilepsy (Hcc) Seizures (Hcc) Gait Abnormality Muscular Deconditioning Failure to Thrive in Adult At Risk for Delirium Inflammation of Colonic Mucosa Bowel Wall Thickening Feeding Difficulties COVID-19 Immunization Status Overdue - Covid-19 Vaccine () Overdue since 11/26/2023 04/26/2022 Imm Admin: COVID-19 vaccine, age 12+ yr, bivalent (PFIZER-BIONTECH) 03/01/2021 Imm Admin: COVID-19 original vaccine, age 12+ yr, monovalent (PFIZER- BIONTECH - PURPLE TOP) 07/01/2020 Imm Admin: COVID-19 original vaccine, age 12+ yr, monovalent (PFIZER- BIONTECH - PURPLE TOP) Only the first 3 history entries have been loaded, but more history exists. CHIEF COMPLAINT: Pre-Op HPI: Lakesha Koch is a 63 year old female presenting for pre-anesthesia consultation. Pt has history of perforated appendix. Above procedure recommended to manage symptoms. Procedure scheduled on 01/03/2024 at [facility]. REVIEW OF SYSTEMS: General: No weight loss, malaise or fevers. Neurological: Positive for: seizures (no LOC with seizures - last in may). Negative for: headaches, multiple sclerosis, Parkinson's disease and strokes. Respiratory: Negative for: asthma, COPD, current cough, dyspnea, tobacco use, URI < 2 weeks and obstructive sleep apnea. Cardiovascular: Negative for: AICD/PPM, anticoagulation therapy, arrhythmia, CAD, chest pain, CHF, DVT/PE, hyperlipidemia, hypertension, recent MS, murmur/valvular heart disease, open heart surgery and valve surgery. GI: Positive for: abdominal pain Negative for: dysphagia, GERD, liver disease, nausea and vomiting. : Negative for: on dialysis, dysuria, hematuria and renal failure. Endocrine: Negative for: diabetes mellitus, hyperthyroidism and hypothyroidism. Hematology: Positive for: anemia. Negative for: bruises/bleeds easily, factor V Leiden, hemophilia, thrombocytopenia, von Willebrand disease and chronic anti-coagulation/platelet meds. Oncology: No history of CA metastasis, chemo within 30 days, or radiotherapy within 90 days. No history of oncological symptoms or problems. Psych: Positive for: anxiety and depression. Negative for: bipolar disorder. Musculoskeletal: Negative for joint pain or swelling, back pain or muscle pain. Skin: Negative for lesions, rash and itching. PAST MEDICAL HISTORY Diagnosis Date Anemia Anorexia nervosa Bowel wall thickening Daily consumption of alcohol Depression Essential tremor Failure to thrive in adult Feeding difficulties Focal epilepsy (HCC) Gait abnormality Inflammation of colonic mucosa Intestinal obstruction (HCC) Migraine Migraine without aura 05/03/2019 Muscular deconditioning Perforated 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 with localized peritonitis, gangrene and abscess Psoas abscess, right (HCC) Seizures (HCC) Severe protein-calorie malnutrition (HCC) PAST SURGICAL HISTORY Procedure Laterality Date EXPLORATORY OF ABDOMEN 09/19/2023 ROCIO DRAIN TO BULB SUCTION 09/01/2023 for acute 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 with perforation, localized peritonitis, and gangrene. FAMILY HISTORY Problem Relation Age of Onset Prostate Cancer Father Melanoma Sister Anesthesia Problems No Family History Social History Tobacco Use Smoking status: Former Current packs/day: 0.00 Average packs/day: 1 pack/day for 11.0 years (11.0 ttl pk-yrs) Types: Cigarettes Start date: 1984 Quit date: 1995 Years since quittin.7 Passive exposure: Past Smokeless tobacco: Never Vaping Use Vaping status: Never Used Substance Use Topics Alcohol use: Not Currently Comment: sober, quit 3 years ago Drug use: Not Currently Types: Marijuana Comment: unknown Prior to Admission medications as of 12/28/23 0920 Medication Sig Last Dose Taking busPIRone (BUSPAR) 7.5 mg tablet Taking Yes alendronate (FOSAMAX) 70 mg tablet Taking Yes sertraline (ZOLOFT) 50 mg tablet Taking Yes divalproex ER (DEPAKOTE ER) 250 mg 24 hr tablet Take 2 tablets by mouth two times a day. Taking Yes amoxicillin-clavulanate potassium (AUGMENTIN) 875-125 mg per tablet Take 1 tablet by mouth every 12hours. Taking Yes Food Supplement, Lactose-Free (ENSURE ACTIVE HIGH PROTEIN) liqd Take 237 mL by mouth three times a day with meals. Taking Yes oxyCODONE IR (ROXICODONE) 5 mg immediate release tablet Take 1 tablet by mouth every 8 hours as needed for pain for up to 7 days. fluconazole (DIFLUCAN) 200 mg tablet TAKE 1 TABLET BY MOUTH with signs OF yeast infection. if no results in 72 hours take the other tablet Patient not taking: Reported on 12/18/2023 Not Taking lacosamide (VIMPAT) 100 mg tab Take 1 tablet by mouth two times a day for 30 days. Patient not taking: Reported on 12/18/2023 ciprofloxacin HCl (CIPRO) 500 mg tablet 1 tablet by ORAL/FEEDING TUBE route every 12 hours at 6 am and 6 pm. Patient not taking: Reported on 12/28/2023 Not Taking senna (SENOKOT) 8.6 mg tab 1 tablet by ORAL/FEEDING TUBE route two times a day. Patient not taking: Reported on 12/18/2023 zinc oxide (DESITIN) 13 % cream Apply to affected area as needed. Patient not taking: Reported on 12/18/2023 Food Supplement, Lactose-Free (ENSURE HIGH PROTEIN) liqd Take 237 mL by mouth two times a day. 2 times daily between meals Food Supplement, Lactose-Free (ENSURE CLEAR) liqd Take 237 mL by mouth daily after lunch. PM Snack pantoprazole DR (PROTONIX) 40 mg tablet Take 1 tablet by mouth once daily. Patient not taking: Reported on 12/18/2023 No medication comments found. ALLERGIES Allergen Reactions Erythromycin Unknown Azithromycin Unknown Objective PHYSICAL EXAM: General: alert and oriented and malnourished. Pertinent negatives noted - not distressed. Skin: normal color, no rash or lesions. HEENT: EOM intact, pupils equal round and pupils reactive to light. Pertinent negatives noted - no carotid bruit. Cardiovascular: regular rate and rhythm, normal S1 and S2, no rub, murmurs, or gallop. Respiratory: normal breath sounds, no wheezes or crackles. No chest wall deformity or tenderness. Abdomen: bowel sounds present and soft. Pertinent negatives noted - not tender. Extremities: no deformity, no edema or tenderness, no joint swelling or clubbing. Neurological: normal cognition and motor skills. Gait normal. No weakness or sensory deficit. PAIN ASSESSMENT: Pain Pain Level: 6 Pain Location: Abdomen-Right Lower Quadrant Description: Sharp Frequency: Intermittent VITALS: BP 94/68 Pulse 89 Temp 97.4 Resp 16 Ht 5' 4 (1.63m) Wt 92 lb 13 oz (42.1kg) SpO2 99% BMI 15.92 kg/(m^2). Diagnostic tests reviewed for today's visit: Lab Value Units Date High Low HB 11.1 g/dL 12/19/2023 15.5 11.5 HCT 35.0 % 12/19/2023 46.0 36.0 WBC 8.07 k/uL 12/19/2023 11.00 3.70 PLT 329 k/uL 12/19/2023 400 150 NA 138 mmol/L 12/19/2023 144 136 K 4.3 mmol/L 12/19/2023 5.1 3.7 GLUC 98 mg/dL 12/19/2023 99 74 BUN 31 mg/dL 12/19/2023 21 7 CREAT 0.92 mg/dL 12/19/2023 0.96 0.58 PTSEC 12.4 sec 09/21/2023 13.0 9.7 INR 1.2 no uni* 09/21/2023 1.3 0.9 APTT 26.6 sec 09/21/2023 32.4 23.0 ALT <5 U/L 12/19/2023 38 7 AST 9 U/L 12/19/2023 35 13 TBILI <0.2 mg/dL 12/19/2023 1.3 0.2 TSH 1.540 mIU/L 12/19/2023 4.200 0.270 Lab Value Units Date High Low HCGQT No results within date range. UHCG No results within date range. HCG, BODY* No results within date range. Lab Value Units Date High Low ABORHD No results within date range. ABSCREEN No results within date range. No results found for: HBA1C Recent Results (from the past 8760 hour(s)) ECG COMPLETE Collection Time: 09/14/23 1:16 PM Result Value Ventricular Rate 97 Atrial Rate 98 P-R Interval 120 QRS Duration 64 QT Interval 348 QTC Calculation (Bazett) 441 Calculated P [place] 76 Calculated R [place] 8 Calculated T [place] 70 Impression NORMAL SINUS RHYTHM LOW VOLTAGE QRS, CONSIDER PULMONARY DISEASE, PERICARDIAL EFFUSION, OR NORMAL VARIANT NONSPECIFIC T WAVE ABNORMALITY ABNORMAL ECG Confirmed by MALINI PÉREZ MD ([id number]) on 09/30/2023 11:21:02 AM Recent Results (from the past 10351 hour(s)) ECHO Collection Time: 09/18/23 8:28 AM Impression CONCLUSIONS: - Technically difficult exam due to suboptimal positioning and body habitus. - Exam indication: Murmur - The left ventricle is normal in size. Left ventricular systolic function is normal. EF = 61 5% (2D 4-ch.) Indeterminate left ventricular diastolic dysfunction. 2D linear dimensions not reported due to suboptimal PLAX imaging. - The right ventricle is normal in size. Right ventricular systolic function is normal. - The left atrial cavity is moderately dilated. - Aortic valve morphology not well visualized. - There is a small pericardial effusion adjacent to the RV and LV measuring 0.9 cm and 0.7 cm respectively. The IVC is normal in diameter and collapses > 50% with inspiration. There is no significant variation in peak E-wave inflows across MV and TV. Overall, no echocardiographic evidence to suggest tamponade physiology. - The patient has not had a prior CC echocardiographic exam for comparison. * * * Final * * * Assessment Patient has the following medical conditions which may affect myah-operative course: Seizures (HCC) Assessment: Follows with neuro for focal seizures. On rx. No seizure since May 2023. Iron deficiency anemia Assessment: Improving. Obtaining type and screen today. Hemoglobin (g/dL) Date Value 12/19/2023 11.1 09/26/2023 9.0 09/26/2023 8.8 12/29/2020 12.5 HGB (g/dL) Date Value 01/28/2019 14.0 Hematocrit (%) Date Value 12/19/2023 35.0 09/26/2023 27.7 09/26/2023 27.3 12/29/2020 39.6 01/28/2019 42.1 Anxiety and depression Assessment: Stable per pt, on rx. Inflammation of colonic mucosa Assessment: No new symptoms currently. Follows with GI now. CT 09/16/2023 with Stable nonspecific terminal ileitis which is most suspicious for inflammatory bowel (Crohn's) disease given adjacent phlegmonous process but could relate to other infectious process Failure to thrive in adult Assessment: Deconditioning and protein-calorie malnutrition. Drinking Boost now consistently. Hunt Activity Status Index: METS: Climb a flight of stairs or walk up a hill (5.50 METs) DASI Score: 5.5 Patient denies any chest pain or undue shortness of breath with the above physical activity. Clinical Frailty Scale: 3. Well, with treated comorbid disease STOP-Bang Score: Patient over 50 years old Denies snoring loudly Denies feeling tired, fatigued, or sleepy during the daytime Has not been observed to stop breathing or choking/gasping during sleep Denies having high blood pressure BMI less than or equal to 35 kg/m^2 Does not have a large neck Non-male patient STOP-Bang Score: 1 [id number] Score: Age: <65 Sex: female CHF history: No Hypertension history: No Stroke/TIA/thromboembolism history: No Vascular disease history: No Diabetes history: No [id number] Score: 1 ANESTHESIA FINDINGS: Intubation History: No history of difficult intubation. No abnormal airway history Significant Anesthesia Considerations: none Airway History: No history of difficult airway No abnormal airway history I - PHYSICAL EVALUATION AIRWAY Patient intubated: No. Tracheostomy tube not present Mallampati: II. TM distance: >3 FB. Neck ROM: full ROM without neurological symptoms. Mouth opening: adequate. Short neck: no. Thick neck: no Lip Bite Test: I Microretrognathia/Micronagthia/Recessed Chin: No DENTAL Dental findings: missing tooth/teeth. Dentures, upper: complete. Additional comments: Upper caps . II - ANESTHESIA PLAN Anesthetic Plan: other Anesthetic plan additional comments: *PACC/TCI - anesthesia choice. Beta Luis Monitoring Plan Post Procedure Analgesic Plan Prepared for Surgery: optimally prepared for surgery. Type and screen completed today d/t anemia and possible open abdominal surgery CONSULTS: Patient does not require consults for optimization at this time Planned Anesthetic: other anesthesia choice The Following Tests/Procedures Have Been Initiated: Orders Placed This Encounter Type and Screen, 30 day Standing Status: Future Number of Occurrences: 1 Standing Expiration Date: 03/28/2024 Scheduling Instructions: A 30-day Type and Screen test has been ordered for you. This should be scheduled to be collected noearlier than 29 days before your scheduled procedure. If you receive blood products (red blood cells, platelets, plasma, cryoprecipitate) at any point before your procedure or are a female and become, please inform your provider. This test will be canceled, and a standard type and screen will need to be ordered to be collected within 3 days of your procedure. Order Specific Question: [facility] Planned Surgery or Procedure: Answer: Emmanuel Order Specific Question: Status of surgery/procedure: Answer: Scheduled Order Specific Question: Date of surgery/procedure: Answer: 01/03/2024 Instructions Given to Patient: Instructions located in the after visit summary. Patient given verbal and written preop instructions and voices comprehension and compliance. SIGNATURE: Lisbeth Alford PA-C PATIENT NAME: Lakesha Koch DATE: 12/28/2023 TIME: 10:48 AM PAGER/CONTACT #: documented in this encounterSt[facility] Instructions* Patient Instructions* Lisbeth Alford PA-C - 12/28/2023 9:05 AM EDT Images from the original note were not included. [facility] PATIENT PREOPERATIVE INSTRUCTIONS Tessa Spring MD has scheduled you for your procedure at this surgery center: [facility]: [phone] --[id number] [address]. Please check in on the1st floor at registration desk 6. Please read below carefully for your personalized instructions. Arrival Time for Surgery: - The Surgery Center or hospital where you are having surgery will call the afternoon before surgery (or Monday for Monday surgery) with a scheduled arrival time. - If you have not heard by 4 pm, please contact the surgery center above. Please be aware that emergency situations arise, which may delay or change your surgical time. If this happens, we will notify you as soon as possible and regret any inconvenience. Dietary Restrictions: - No solid food after midnight. - You may have 12 ounces of clear liquids (water, clear juices such as apple juice or gatorade, carbonated beverages, clear tea, black coffee, jello) until 2 hours before scheduled arrival at facility. - Do not drink any alcohol after midnight the night before your surgery. - Follow bowel prep instructions: clear liquids need to be stopped 2 hours prior to schedule arrival at facility (complete a bowel prep only if instructed to by your surgeon - I am going to reach outto your surgeon about this! He may send you new instructions and a different antibiotic. If I hear back from him first, I will call you!). Medications: Unless instructed differently below, stay on all of your medications until your surgery. If you start any new medications after today's visit, please contact your surgeon. Pre-Surgery Med Instructions Medication Instructions busPIRone (BUSPAR) 7.5 mg tablet Take the day of surgery with a small sip of water alendronate (FOSAMAX) 70 mg tablet Continue to take as you normally do sertraline (ZOLOFT) 50 mg tablet Take the day of surgery with a small sip of water divalproex ER (DEPAKOTE ER) 250 mg 24 hr tablet Take the day of surgery with a small sip of water amoxicillin-clavulanate potassium (AUGMENTIN) 875-125 mg per tablet Continue to take as instructed by your surgeon Food Supplement, Lactose-Free (ENSURE ACTIVE HIGH PROTEIN) liqd Do not take the morning of surgery If you start any new medications after today's visit, please contact the surgeon's office. Blood Thinning Medications: - Stop NSAIDS (Ibuprofen, Advil, Aleve, Motrin, Celebrex, Mobic, etc.) 7 days before surgery, as directed by your surgeon. - Stop Aspirin 7 days before surgery, as directed by your surgeon. - Stop Vitamin E, ALL multi-vitamins, herbals and dietary supplements 14 days before surgery. - You may take Tylenol (Acetaminophen) or any of your pain medications that do not contain aspirin or NSAIDS as needed. Vitamins/supplements prescribed for a specific purpose (e.g., vitamin D and calcium for osteoporosis, vitamin B12 for B12 deficiency) should be continued, but all others (especially any including vitamins A and E) should be stopped. Important Reminders: - Candy, mints, and tobacco products are NOT permitted the morning of surgery. - Hearing aids, dentures and glasses may be worn the morning of surgery. - NO jewelry, body piercings, makeup, hairpins or contacts are to be worn the day of surgery. If you develop symptoms such as a fever, cold, or flu, or have other changes to your health within TWO DAYS of scheduled surgery or the morning of surgery, please contact the surgery center above. Personal Belongings: -Please have photo ID and insurance cards. -If you do not have a copy of advance directives on file with us, please bring a copy with you on the day of surgery. - Leave ALL valuables and money at home or with family members. For Outpatient Procedures: - YOU MUST HAVE A RESPONSIBLE FURNITURE UPHOLSTERER TAKE YOU HOME. A PEGGER OR CAN RECONDITIONER CANNOT BE MADE A RESPONSIBLE FURNITURE UPHOLSTERER. - We recommend that a responsible person stays with you overnight to take care of you. - You cannot stay in a hotel alone after outpatient surgery. You will not be permitted to have yoursurgery, if you do not have someone to take care of you. If you already have an Advance Directive, please fax a copy to [phone] or email to for it to be added to your chart. If you do not have an Advance Directive, you can find the appropriate form and more information at [email or web address]. We recommend that youcomplete the Advance Directive form found on the website and bring it with you the day of your surgery. It can be witnessed and scanned into your chart that day. Lisbeth Alford PA-C Pre-Anest[facility] Consultation [facility] ([facility]) [place] [phone] documented in this encounterSt. [facility] Telephone encounter Note * Telephone Encounter - Rema Beltre RN - 12/27/2023 11:27 AM EDT Returned call and spoke to patient. Patient explained that her lower abdominal pain is intermittent, but a stronger pain now. Rating it a 6/10 at its worst. Patient was asking if a stronger medication could be prescribed just to get her to surgery next Tuesday 01/02 -- Tylenol does not seem to be helping. Informed I would ask Dr. Spring as we typically don't give pain medications prior to surgery, butwould check with him and let her know. Verified pharmacy in chart [facility] [place] is her preferred pharmacy. Patient thankful for return call. [facility] Telephone encounter Note* Telephone Encounter - Pepe Pablo - 12/27/2023 10:56 AM EDT Kina, Received a call from the patient. She said she is experiencing pain in lower abdomen and wondering if Dr. Spring can prescribe medication stronger than Tylenol as her surgery is scheduled on 01/03/2024. [facility] History and physical note* Tessa Spring MD - 12/18/2023 12:40 PM EDT New Patient Consult REASON FOR VISIT Consultation requested by Roseanna Maldonado for an opinion regarding Lakesha Koch. My final recommendations will be communicated back to the requesting physician by way of shared Medical record or letter to requesting physician via US mail. History of Present Illness: Lakesha Koch is a 63 year old female who was admitted to an outside hospital in August 2023 after afall and was found to have signs of perforated 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. The patient states she was planned forappendectomy which never happened. Instead, she had a percutaneous drain placed in the collection and was discharged home on a long course of IV antibiotics. The patient also states there was no clear plan for an interval appendectomy at that time. During her time at home she experienced several episodes of abdominal pain and nausea which required a visit to [facility] where she continued to receive conservative management with nondenominational of bowel function. On follow-up visits, the drain was managed expectantly and was eventually removed a month ago. During this course, the patient experienced significant failure to thrive and weight loss. She continues to have chronic right lower quadrant pain with severe acute peaks every once in a while. Thereis no obvious trigger for these attacks. The patient reports adequate p.o. intake and bowel habits and admits to gaining a few pounds of weight in the past couple of weeks. Her most recent CT scan shows a chronic fluid collection in the right lower quadrant possibly involving the terminal ileum and the cecum. The appendix is not clearly visualized but, on my interpretation, I think there is a remnant appendiceal stump involved in the collection. She denies having previous abdominal surgeries. FUNCTIONAL STATUS: Climb a flight of stairs or walk up a hill (5.50 METs) PAST MEDICAL HISTORY Diagnosis Date Anemia Anorexia nervosa Bowel wall thickening Daily consumption of alcohol Depression Essential tremor Failure to thrive in adult Feeding difficulties Focal epilepsy (HCC) Gait abnormality Inflammation of colonic mucosa Intestinal obstruction (HCC) Migraine Muscular deconditioning Perforated 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 with localized peritonitis, gangrene and abscess Psoas abscess, right (HCC) Seizures (HCC) Severe protein-calorie malnutrition (HCC) PAST SURGICAL HISTORY Procedure Laterality Date EXPLORATORY OF ABDOMEN 09/19/2023 ROCIO DRAIN TO BULB SUCTION 09/01/2023 for acute 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 with perforation, localized peritonitis, and gangrene. FAMILY HISTORY Problem Relation Age of Onset Prostate Cancer Father Melanoma Sister Social History Tobacco Use Smoking status: Former Types: Cigarettes Passive exposure: Past Smokeless tobacco: Never Vaping Use Vaping status: Never Used Substance Use Topics Alcohol use: Yes Comment: daily MEDICATIONS Current Outpatient Medications Medication Sig Dispense Refill busPIRone (BUSPAR) 7.5 mg tablet alendronate (FOSAMAX) 70 mg tablet sertraline (ZOLOFT) 50 mg tablet divalproex ER (DEPAKOTE ER) 250 mg 24 hr tablet Take 2 tablets by mouth two times a day. 360 tablet1 amoxicillin-clavulanate potassium (AUGMENTIN) 875-125 mg per tablet Take 1 tablet by mouth every 12hours. ciprofloxacin HCl (CIPRO) 500 mg tablet 1 tablet by ORAL/FEEDING TUBE route every 12 hours at 6 am and 6 pm. Food Supplement, Lactose-Free (ENSURE ACTIVE HIGH PROTEIN) liqd Take 237 mL by mouth three times a day with meals. 67554 mL 0 Food Supplement, Lactose-Free (ENSURE HIGH PROTEIN) liqd Take 237 mL by mouth two times a day. 2 times daily between meals 43231 mL 0 Food Supplement, Lactose-Free (ENSURE CLEAR) liqd Take 237 mL by mouth daily after lunch. PM Snack 7110 mL 0 fluconazole (DIFLUCAN) 200 mg tablet TAKE 1 TABLET BY MOUTH with signs OF yeast infection. if no results in 72 hours take the other tablet (Patient not taking: Reported on 12/18/2023) lacosamide (VIMPAT) 100 mg tab Take 1 tablet by mouth two times a day for 30 days. (Patient not taking: Reported on 12/18/2023) senna (SENOKOT) 8.6 mg tab 1 tablet by ORAL/FEEDING TUBE route two times a day. (Patient not taking: Reported on 12/18/2023) zinc oxide (DESITIN) 13 % cream Apply to affected area as needed. (Patient not taking: Reported on 12/18/2023) pantoprazole DR (PROTONIX) 40 mg tablet Take 1 tablet by mouth once daily. (Patient not taking: Reported on 12/18/2023) 30 tablet 0 No current facility-administered medications for this visit. CURRENT ALLERGIES ALLERGIES Allergen Reactions Erythromycin Unknown Azithromycin Unknown REVIEW OF SYSTEMS PAIN ASSESSMENT: Pain Pain Level: 3 Pain Location: Abdomen-Right Lower Quadrant Frequency: Intermittent General: Unintentional > 10% weight loss in < 6 months Neuro: Seizures on Depakote Respiratory: No history of current cough or dyspnea, or pneumonia in the past 6 weeks. No history of respiratory/pulmonary symptoms or problems Cardiovascular: No history of HTN requiring medication, no history of angina, CHF, MS, cardiac surgery or stents. Denies rest pain, gangrene or revascularization/amputation for PVD. No history of cardiovascular symptoms or problems. GI: See HPI : No history of UTI in past 6 weeks. No history of renal failure. Not currently on or requiring dialysis. No history of symptoms or problems. Endocrine: No history of diabetes. Has not taken steroids within the past 30 days. No history of endocrinological symptoms or problems. Hematology: Iron deficiency anemia due to malnutrition and long hospitalization Oncology: No history of CA metastasis, chemo within 30 days, or radiotherapy within 90 days. Has not lost 10% of body wt in 6 months. No history of oncological symptoms or problems. Psych: No history of psychiatric symptoms or problems. Musculoskeletal: Negative for joint pain or swelling, back pain or muscle pain. Skin: Negative for lesions, rash and itching. Anemia: No PHYSICAL EXAMINATION BP 86/62 Pulse 100 Temp (Src) 97 (Temporal) Ht 5' 4.016 (1.63m) Wt 93 lb 11.1 oz (42.5kg) SpO2 98% BMI 16.07 kg/(m^2). General Appearance: Well appearing, alert, in no acute distress. Signs of malnourishment and musclewasting Skin: Dry and thin Head: Normocephalic, no masses, lesions, tenderness or abnormalities Oropharynx: Lips, mucosa, and tongue normal, teeth and gums normal, oropharynx normal Neck: Not examined Lungs: Unlabored on room air Heart: Not examined Extremities: No deformities, edema, skin discoloration, clubbing or cyanosis. Good capillary refill. Neuro: Gait normal. Reflexes normal and symmetric. Sensation grossly intact. Abdomen: The abdomen is soft and nondistended. Tenderness to deep palpation with guarding in the right lower quadrant but no obvious peritonitis. Drain site healed. 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 No interval appendectomy was performed. The patient now continues to have chronic right lower quadrant pain with intermittent acute attacks. She had 1 obstructive e pisode that required hospital admission and conservative management. RECOMMENDATION I explained to the patient that her clinical symptoms, especially the chronic pain in the right lower quadrant with acute attacks, are most likely a sequela of the inflammatory process around the untreated appendiceal stump. Given the symptoms and the impact on the patient's nutrition and wellbeingI recommended pursuing a diagnostic laparoscopy, appendectomy, possible ileocecectomy, possible open. I explained the risks and the benefits of this procedure and elaborated on the expected hospital stay and postoperative recovery. The patient and her family verbalized her agreement to proceed withthe plan as stated. I ordered a set of labs including prealbumin to be performed preoperatively during the clearance process. Medical Decision Making: Problems: High: Illness/injury w/ threat to life/body function Data: Unique source(s) for external note(s) reviewed: 3+ Unique test result(s) reviewed: 3+ Unique test(s) ordered: 3+ Assessment requiring an independent historian(s) Independent interpretation of test from other physician/QHCP Risk: High: Decision on elective major surgery w/ risk factors Medical Decision Making Level: 5 - High Tessa Spring MD [facility] December 18, 2023 [facility] History and physical note* Tessa Spring MD - 12/18/2023 12:40 PM EDT New Patient Consult REASON FOR VISIT Consultation requested by Roseanna Maldonado for an opinion regarding Lakesha Koch. My final recommendations will be communicated back to the requesting physician by way of shared Medical record or letter to requesting physician via [place] mail. History of Present Illness: Lakesha Koch is a 63 year old female who was admitted to an outside hospital in August 2023 after afall and was found to have signs of perforated 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. The patient states she was planned forappendectomy which never happened. Instead, she had a percutaneous drain placed in the collection and was discharged home on a long course of IV antibiotics. The patient also states there was no clear plan for an interval appendectomy at that time. During her time at home she experienced several episodes of abdominal pain and nausea which required a visit to [facility] where she continued to receive conservative management with nondenominational of bowel function. On follow-up visits, the drain was managed expectantly and was eventually removed a month ago. During this course, the patient experienced significant failure to thrive and weight loss. She continues to have chronic right lower quadrant pain with severe acute peaks every once in a while. Thereis no obvious trigger for these attacks. The patient reports adequate p.o. intake and bowel habits and admits to gaining a few pounds of weight in the past couple of weeks. Her most recent CT scan shows a chronic fluid collection in the right lower quadrant possibly involving the terminal ileum and the cecum. The appendix is not clearly visualized but, on my interpretation, I think there is a remnant appendiceal stump involved in the collection. She denies having previous abdominal surgeries. FUNCTIONAL STATUS: Climb a flight of stairs or walk up a hill (5.50 METs) PAST MEDICAL HISTORY Diagnosis Date Anemia Anorexia nervosa Bowel wall thickening Daily consumption of alcohol Depression Essential tremor Failure to thrive in adult Feeding difficulties Focal epilepsy (HCC) Gait abnormality Inflammation of colonic mucosa Intestinal obstruction (HCC) Migraine Muscular deconditioning Perforated 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 with localized peritonitis, gangrene and abscess Psoas abscess, right (HCC) Seizures (HCC) Severe protein-calorie malnutrition (HCC) PAST SURGICAL HISTORY Procedure Laterality Date EXPLORATORY OF ABDOMEN 09/19/2023 ROCIO DRAIN TO BULB SUCTION 09/01/2023 for acute 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 with perforation, localized peritonitis, and gangrene. FAMILY HISTORY Problem Relation Age of Onset Prostate Cancer Father Melanoma Sister Social History Tobacco Use Smoking status: Former Types: Cigarettes Passive exposure: Past Smokeless tobacco: Never Vaping Use Vaping status: Never Used Substance Use Topics Alcohol use: Yes Comment: daily MEDICATIONS Current Outpatient Medications Medication Sig Dispense Refill busPIRone (BUSPAR) 7.5 mg tablet alendronate (FOSAMAX) 70 mg tablet sertraline (ZOLOFT) 50 mg tablet divalproex ER (DEPAKOTE ER) 250 mg 24 hr tablet Take 2 tablets by mouth two times a day. 360 tablet1 amoxicillin-clavulanate potassium (AUGMENTIN) 875-125 mg per tablet Take 1 tablet by mouth every 12hours. ciprofloxacin HCl (CIPRO) 500 mg tablet 1 tablet by ORAL/FEEDING TUBE route every 12 hours at 6 am and 6 pm. Food Supplement, Lactose-Free (ENSURE ACTIVE HIGH PROTEIN) liqd Take 237 mL by mouth three times a day with meals. 82473 mL 0 Food Supplement, Lactose-Free (ENSURE HIGH PROTEIN) liqd Take 237 mL by mouth two times a day. 2 times daily between meals 59027 mL 0 Food Supplement, Lactose-Free (ENSURE CLEAR) liqd Take 237 mL by mouth daily after lunch. PM Snack 7110 mL 0 fluconazole (DIFLUCAN) 200 mg tablet TAKE 1 TABLET BY MOUTH with signs OF yeast infection. if no results in 72 hours take the other tablet (Patient not taking: Reported on 12/18/2023) lacosamide (VIMPAT) 100 mg tab Take 1 tablet by mouth two times a day for 30 days. (Patient not taking: Reported on 12/18/2023) senna (SENOKOT) 8.6 mg tab 1 tablet by ORAL/FEEDING TUBE route two times a day. (Patient not taking: Reported on 12/18/2023) zinc oxide (DESITIN) 13 % cream Apply to affected area as needed. (Patient not taking: Reported on 12/18/2023) pantoprazole DR (PROTONIX) 40 mg tablet Take 1 tablet by mouth once daily. (Patient not taking: Reported on 12/18/2023) 30 tablet 0 No current facility-administered medications for this visit. CURRENT ALLERGIES ALLERGIES Allergen Reactions Erythromycin Unknown Azithromycin Unknown REVIEW OF SYSTEMS PAIN ASSESSMENT: Pain Pain Level: 3 Pain Location: Abdomen-Right Lower Quadrant Frequency: Intermittent General: Unintentional > 10% weight loss in < 6 months Neuro: Seizures on Depakote Respiratory: No history of current cough or dyspnea, or pneumonia in the past 6 weeks. No history of respiratory/pulmonary symptoms or problems Cardiovascular: No history of HTN requiring medication, no history of angina, CHF, MS, cardiac surgery or stents. Denies rest pain, gangrene or revascularization/amputation for PVD. No history of cardiovascular symptoms or problems. GI: See HPI : No history of UTI in past 6 weeks. No history of renal failure. Not currently on or requiring dialysis. No history of symptoms or problems. Endocrine: No history of diabetes. Has not taken steroids within the past 30 days. No history of endocrinological symptoms or problems. Hematology: Iron deficiency anemia due to malnutrition and long hospitalization Oncology: No history of CA metastasis, chemo within 30 days, or radiotherapy within 90 days. Has not lost 10% of body wt in 6 months. No history of oncological symptoms or problems. Psych: No history of psychiatric symptoms or problems. Musculoskeletal: Negative for joint pain or swelling, back pain or muscle pain. Skin: Negative for lesions, rash and itching. Anemia: No PHYSICAL EXAMINATION BP 86/62 Pulse 100 Temp (Src) 97 (Temporal) Ht 5' 4.016 (1.63m) Wt 93 lb 11.1 oz (42.5kg) SpO2 98% BMI 16.07 kg/(m^2). General Appearance: Well appearing, alert, in no acute distress. Signs of malnourishment and musclewasting Skin: Dry and thin Head: Normocephalic, no masses, lesions, tenderness or abnormalities Oropharynx: Lips, mucosa, and tongue normal, teeth and gums normal, oropharynx normal Neck: Not examined Lungs: Unlabored on room air Heart: Not examined Extremities: No deformities, edema, skin discoloration, clubbing or cyanosis. Good capillary refill. Neuro: Gait normal. Reflexes normal and symmetric. Sensation grossly intact. Abdomen: The abdomen is soft and nondistended. Tenderness to deep palpation with guarding in the right lower quadrant but no obvious peritonitis. Drain site healed. 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 No interval appendectomy was performed. The patient now continues to have chronic right lower quadrant pain with intermittent acute attacks. She had 1 obstructive e pisode that required hospital admission and conservative management. RECOMMENDATION I explained to the patient that her clinical symptoms, especially the chronic pain in the right lower quadrant with acute attacks, are most likely a sequela of the inflammatory process around the untreated appendiceal stump. Given the symptoms and the impact on the patient's nutrition and wellbeingI recommended pursuing a diagnostic laparoscopy, appendectomy, possible ileocecectomy, possible open. I explained the risks and the benefits of this procedure and elaborated on the expected hospital stay and postoperative recovery. The patient and her family verbalized her agreement to proceed withthe plan as stated. I ordered a set of labs including prealbumin to be performed preoperatively during the clearance process. Medical Decision Making: Problems: High: Illness/injury w/ threat to life/body function Data: Unique source(s) for external note(s) reviewed: 3+ Unique test result(s) reviewed: 3+ Unique test(s) ordered: 3+ Assessment requiring an independent historian(s) Independent interpretation of test from other physician/QHCP Risk: High: Decision on elective major surgery w/ risk factors Medical Decision Making Level: 5 - High Tessa Spring MD [facility] December 18, 2023 documented in this encounterSt. [facility]09[facility] Nurse Note* Fátima Lubin MA - 12/18/2023 10:01 AM EDT What is the reason for your visit today? Consult Perforated appendix Who is your referring physician? [place] [facility] Are you having poor oral intake? NO Have you had unintentional weight loss of 15 lbs/7 Kg in the last 3-6 months? NO Bowels: watery Wound: Temperature: No Drains: No [facility] Nurse Note* Fátima Lubin MA - 12/18/2023 10:01 AM EDT What is the reason for your visit today? Consult Perforated appendix Who is your referring physician? [place] [facility] Are you having poor oral intake? NO Have you had unintentional weight loss of 15 lbs/7 Kg in the last 3-6 months? NO Bowels: watery Wound: Temperature: No Drains: No documented in this encounterSt. Charles Hospital09-23-2024 History of Present illness Narrative* Rema Beltre, RN - 12/18/2023 9:30 AM EDT New/Est pt: New patient Reason for apt: perforated appendix Medical Hx: anemia, depression, failure to thrive, seizures Surgical Hx: ex lap (08/2023) Imagin09/04/23: CT abd/pelvis Scanned Documents View External Imaging - CT Scan [ID [id number]] Labs: Latest Reference Range & Units 09/26/23 15:57 Sodium 136 - 144 mmol/L 139 Potassium 3.7 - 5.1 mmol/L 3.7 Chloride 98 - 107 mmol/L 104 CO2 22 - 30 mmol/L 23 BUN 7 - 21 mg/dL 17 Creatinine 0.58 - 0.96 mg/dL 0.66 Glucose 74 - 99 mg/dL 104 (H) Protein, Total 6.3 - 8.0 g/dL 6.5 Calcium 8.5 - 10.2 mg/dL 9.0 Magnesium 1.7 - 2.3 mg/dL 1.7 Albumin 3.9 - 4.9 g/dL 3.1 (L) Bilirubin, Total 0.2 - 1.3 mg/dL <0.2 (L) Alkaline Phosphatase 34 - 123 U/L 63 ALT 7 - 38 U/L 5 (L) AST 13 - 35 U/L 12 (L) Anion Gap 8 - 15 mmol/L 12 eGFR >=60 mL/min/1.73m 98 Latest Reference Range & Units 09/26/23 12:10 WBC 3.70 - 11.00 k/uL 9.40 RBC 3.90 - 5.20 m/uL 3.03 (L) Hemoglobin 11.5 - 15.5 g/dL 9.0 (L) Hematocrit 36.0 - 46.0 % 27.7 (L) Platelet Count 150 - 400 k/uL 308 MCV 80.0 - 100.0 fL 91.4 MCH 26.0 - 34.0 pg 29.7 MCHC 30.5 - 36.0 g/dL 32.5 MPV 9.0 - 12.7 fL 9.2 RDW-CV 11.5 - 15.0 % 15.9 (H) DTYPE Auto Neut% % 72.7 Abs Neut (ANC) 1.45 - 7.50 k/uL 6.84 Lymph% % 15.2 Abs Lymph 1.00 - 4.00 k/uL 1.43 Campbell% % 6.8 Abs Campbell <0.87 k/uL 0.64 Eosin% % 3.5 Abs Eosin <0.46 k/uL 0.33 Baso% % 0.9 Abs Baso <0.11 k/uL 0.08 Immature Gran % % 0.9 IMMATURE GRANS (ABS) <0.10 k/uL 0.08 NRBC /100 WBC 0.0 Absolute nRBC <0.01 k/uL <0.01 documented in this encounterSt. Charles Hospital09-23-2024 NoteC[facility] Instructions* Patient Instructions* Pipe Estevez MD - 12/18/2023 9:03 AM EDT Tremor may be at least in part related to medicine side effects Primidone (an old seizure medicine) may be the first option we use, but we could also try somethinglike clonazepam as this might help with sleep better Cannot use beta blockers due to the low blood pressure Please check thyroid lab values today or tomorrow (orders are in the system) Can look into assistive devices [email or web address] documented in this encounterSt. Charles Hospital09-23-2024 [facility]09-23-2024 History of Present illness Narrative* Pipe Estevez MD - 12/18/2023 8:28 AM EDT December 18, 2023 Pipe Estevez MD [facility] [address] [place] [address] PCP: Mary Moss CNP ([facility]) [address] [place] [address] Referring Physician: Dajuan Card APRN.BALL THREAD MACHINE TENDER [id number] [facility] [id number] Lakesha Koch : 1960 History of Present Illness: Lakesha Koch is a 63 year old right-handed woman who is seen in consultation for evaluation of hand tremor. My final recommendations will be communicated back to the requesting physician by way of shared medical record or via letter. The patient is seen with a friend. Ms. Koch complains of being shaky. This has always been present, but it perhaps is worse since arecent hospitalization (5 weeks for a bowel obstruction). Her handwriting is messy but not small. The legs also might shake. She denies shakiness in the neck or voice. The hand shakiness is fairly sym metrical. There is no stiffness in the hands. Her senses of smell and taste are off - good smells are detectable but to her might be off-putting. She is not aware of current activity in her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 loss HEENT: Denies headaches, nasal congestion/sinus symptoms, problematic allergy problems. EYES: No diplopia or blurry vision. CARDIOVASCULAR: No chest pain, dyspnea, palpitations, orthopnea, PND, ankle edema. PULM: No dyspnea, unexplained cough. GI: No dysphagia/odynophagia, problematic reflux, constipation, diarrhea, changes in stool habits, hematochezia, melena. : No new urinary complaints, including dysuria, gross hematuria or pyuria. NEURO: No new balance problems, peripheral weakness/paresthesias or numbness of concern. MUSC-SKEL: No new joint pain, swelling, or erythema. PSY: No concerns regarding depression, anxiety or panic. INTEGUMENTARY: No new skin changes (rash, new or changing mole, new growth) Examination: BP 104/73 Pulse 96 Temp 36.7 C (98 F) (Temporal) Wt 41.2 kg (90 lb 12.8 oz) SpO2 98% BMI 15.59 kg/m Gen: afebrile, no distress, on room air Heent: anicteric, moist membranes, no neck swelling/redness/tenderness, no thrush CV: s1s2, no m/r/g Chest: clear Abd: soft, nontender, no distension, normal bowel sounds, pigtail drain in the lower abdominal midline and ROCIO bulb with clear serous fluid Ext: no edema/erythema/tenderness/cyanosis or clubbing Skin: warm and dry w/o rashes MSK: no joint swelling/redness/tenderness Neuro: no acute deficits. Laboratory data: Reviewed. CrCl cannot be calculated (Unknown ideal weight.). Microbiology data: Reviewed. Imaging data: I personally reviewed images obtained for this admission and noted impressions below. Antimicrobials: # Zosyn 09/07-09/10/23, 09/15-09/22/23 # Vancomycin 09/15-09/21/23 # Unasyn 09/13-09/16/23, 09/20-09/22/23 # Ciprofloxacin 09/13-09/15/23, 09/20-09/27/23 # Augmentin 09/09-09/13/23, 09/22-10/11/23 ASSESSMENT: 63-year-old woman with: # Abdominal abscess in the setting of perforated 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 s/p ROCIO drain at OSH 09/01/2023, cx reportedly w/ Citrobacter braakii, Group F Streptococcus, and [place] odontolytica, tx'ed w/ Augmentin # Severe protein-calorie malnutrition, BMI 15.59 # Seizure d/o # Depression and prior alcohol use d/o # admitted 09/07-09/27/23 for failure to thrive and course was complicated by SBO requiring NG tube. Notable work up included: CRP 5.6, prealbumin 9 mg/dL, hbg 10.8, TSH 28.3, CA-125 164 units/mL, CA 15-3 and CA 19-9 normal, b-hCG 8 international unit(s)/mL (elevated), fecal dillan-protectin 371, blood cx 09/14 2/2 negative, CT a/p 09/07: Extensive pericecal inflammatory changes involving the terminal ileum and right adnexa. The appendix and right ovary are not discretely identified. Findings may represent sequelae of complicated 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 or possibly penetrating Crohn's disease. 2.2 cm nondrainable collection abutting the right psoas muscle. Pigtail drainage catheter in the right lower quadrant without significant residual fluid component. CT enterography 09/08: Essentially stable exam from 09/08/2023. Redemonstrated pericecal inflammatory mass with few locules of residual fluid along the right psoas. Lobular lesion extending posteriorly from the uterus, likely an exophytic fibroid. RepeatCT a/p 09/15: Decreased distention of stomach and proximal small bowel loops following NG tube placement with persistent low grade obstruction in the distal ileum secondary to inflamed segment of terminal ileum. Stable nonspecific terminal ileitis which ismost suspicious for inflammatory bowel (Crohn's) disease given adjacent phlegmonous process but could relate to other infectious process. Stable phlegmonous process in the right lower quadrant which is predominantly soft tissue and tethered to the terminal ileum, cecum and right ovary. CT/PE 09/15: Airspace consolidations with mild surrounding groundglass changes in the dependent portions of the bilateral lower lobes, right more than left, are new and/or worse from earlier abdominal CT scans dated 09/08/2023 and 09/15/2023, compatible with aspiration. Superimposed infection in the lung bases cannot be excluded. Small to medium-sized bilateral pleural effusions. Indeterminate 8 mm soft tissue attenuation nodule in the posterior right upper lobe. She had Corpak placed on 09/10. She was discharged on Augmentin. Today's impressions: 63-year-old woman, underweight, w/ perforated 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 and polymicrobial intra-abdominal abscess w/ contiguous right psoas inflammatory/phlegmonous changes s/p ROCIO drain, tx'ed w/ prolonged course of antibiotics and ROCOI drain with small amount of clear serous output. RECOMMENDATIONS: # Ok to stop and observe off antibiotics. # CPR and HIV screen added. # Pneumoccall and Shingles vaccines if insurance covers. # Chart to GI and surgery. Signature: Cisco Gurrola MD Infectious Disease Office PAGER: [phone] documented in this encounterSt. [facility]07-17-2024 Instructions* Patient Instructions* Roseanna Maldonado MD - 10/11/2023 12:22 PM EDT - Schedule CTE [facility] - Schedule follow-up with general surgery regarding drain - Schedule follow-up with colorectal surgery - Possible colonoscopy with me based on the findings from your CT scan - Bloodwork - IBD nutrition if affordable documented in this encounterSt. Charles Hospital07-17-2024 History of Present illness Narrative* Roseanna Maldonado MD - 10/11/2023 11:00 AM EDT NAME: Lakeshasangeetha Koch [facility] NO: [id number] REASON FOR VISIT Lakesha Koch is a 63 year old female who is scheduled for a consult at the request of Debo Perez. No chief complaint on file. PRESENTING COMPLAINT Pt presents for follow up care after recent hospitalization. August she experienced severe abdominal pian and went to OSH where she was diagnosed with perforated 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 with subsequent drain placed under CT guidance. After discharge from OSH was readmittedfor Failure to thrive at [facility]. She was found to have ongoing 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, myah-cecal abscess, weight loss, and ileal psoas abscess, and myah-uterine mass and and hypokalemia and was admitted to [facility] at that time from 09/08/2023-09/27/2023. Since discharge has been feeling better reporting no abdominal pains, fever, or chills. Currently taking Augmentin and cipro and on full liquid diet. Weight at 91 pounds today which has increased from last weight of 88 ten days ago. Pt states she had her last colonoscopy about 5 years ago though there are no records of this. Clostridium difficile: no Thrombosis: no Ocular (Uveitis, Episcleritis): no Dermatologic (Pyoderma gangrenosum, Erythema nodosum): no Arthropathy/Arthralgia: no Oral ulcers: no Primary Sclerosing Cholangitis: no Other: no Current Clinical Symptoms # of bowel movements daily: 5 (normal is 1/day) # of liquid stools daily: 3-5 Consistency: loose Bloody bowel movements: no Urgency: no Abdominal pain: no Abdominal distention: no Nausea/vomiting: no Weight loss over last 3 months: has gained 4 pounds in last week General well-being: very well PAST SURGICAL HISTORY Procedure Laterality Date EXPLORATORY OF ABDOMEN 09/19/2023 ROCIO DRAIN TO BULB SUCTION 09/01/2023 for acute 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 with perforation, localized peritonitis, and gangrene. PAST MEDICAL HISTORY Diagnosis Date Anemia Anorexia nervosa Bowel wall thickening Daily consumption of alcohol Depression Essential tremor Failure to thrive in adult Feeding difficulties Focal epilepsy (HCC) Gait abnormality Inflammation of colonic mucosa Intestinal obstruction (HCC) Migraine Muscular deconditioning Perforated 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 with localized peritonitis, gangrene and abscess Psoas abscess, right (HCC) Seizures (HCC) Severe protein-calorie malnutrition (HCC) Current Outpatient Medications Medication Sig Dispense Refill lacosamide (VIMPAT) 100 mg tab Take 1 tablet by mouth two times a day for 30 days. divalproex ER (DEPAKOTE ER) 500 mg 24 hr tablet Take 1 tablet by mouth two times a day. amoxicillin-clavulanate potassium (AUGMENTIN) 875-125 mg per tablet Take 1 tablet by mouth every 12hours. ciprofloxacin HCl (CIPRO) 500 mg tablet 1 tablet by ORAL/FEEDING TUBE route every 12 hours at 6 am and 6 pm. senna (SENOKOT) 8.6 mg tab 1 tablet by ORAL/FEEDING TUBE route two times a day. zinc oxide (DESITIN) 13 % cream Apply to affected area as needed. Food Supplement, Lactose-Free (ENSURE ACTIVE HIGH PROTEIN) liqd Take 237 mL by mouth three times a day with meals. 29155 mL 0 Food Supplement, Lactose-Free (ENSURE HIGH PROTEIN) liqd Take 237 mL by mouth two times a day. 2 times daily between meals 21706 mL 0 Food Supplement, Lactose-Free (ENSURE CLEAR) liqd Take 237 mL by mouth daily after lunch. PM Snack [address] (PROTONIX) 40 mg tablet Take 1 tablet by mouth once daily. 30 tablet 0 No current facility-administered medications for this visit. Erythromycin and Azithromycin Recent Labs: CBC: WBC (k/uL) Date Value 09/26/2023 9.40 09/26/2023 11.60 (H) Hematocrit (%) Date Value 09/26/2023 27.7 (L) MCV (fL) Date Value 09/26/2023 91.4 Platelet Count (k/uL) Date Value 09/26/2023 308 Lymphocytes % (%) Date Value 09/26/2023 15.2 Hepatic Function Panel: Albumin (g/dL) Date Value 09/26/2023 3.1 (L) Bilirubin, Total (mg/dL) Date Value 09/26/2023 <0.2 (L) Alkaline Phosphatase (U/L) Date Value 09/26/2023 63 AST (U/L) Date Value 09/26/2023 12 (L) ALT (U/L) Date Value 09/26/2023 5 (L) Protein, Total (g/dL) Date Value 09/26/2023 6.5 Social History Tobacco Use Smoking status: Unknown Smokeless tobacco: Never Vaping Use Vaping Use: Never used Substance Use Topics Alcohol use: Yes Comment: daily PERSONAL HABITS: Tobacco: No Alcohol: No quit over three year ago PAST MEDICAL HISTORY Colon cancer: No Other cancer:No Radiation / Chemotherapy:No Crohn's disease / Ulcerative colitis:No High cholesterol or triglycerides:No Ulcers: No Gallstones:No Hepatitis / jaundice: No Heart Disease: No Lung Disease:No Liver problems:No Thyroid disease: No Kidney stones:No Pancreatitis:No Diabetes:No Arthritis:No Rheumatic fever:No Gastrointestinal bleeding:Yes Depression or other mental illness:Yes Other personal illness: Failure to thrive, tremors GI SPECIFIC ROS Difficulty swallowing / foods sticking in throat:No Heartburn:No Hoarseness:No Chronic cough:No Regurgitation:No Chest pain:No Filling up quickly at meals:No Loss of appetite:No Nausea:No Vomiting: No Abdominal pain:No Recent change in bowel movements: No Bloody or black, bowel movements:No Constipation: No Diarrhea: No Loss of control of bowel movements:No Night sweats, fever, chills: No Thought or memory problems: Yes Fluid in abdomen (ascites): No Prominent leg swelling: No Vomiting blood: No Recent change in weight:No All others negative FAMILY HISTORY Has anyone in your family (grandparents, parents, brothers, sisters, aunts, or uncles) had: Liver problems: No Colitis: No Colon cancer:No Other cancers: mother with Lung cancer FAMILY HISTORY Problem Relation Age of Onset Prostate Cancer Father Melanoma Sister Imaging CT ABD/PEL 09/08/2023- Extensive pericecal inflammatory changes involving the terminal ileum and right adnexa. Sequelae of complicated 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 or possibly penetrating Crohn's disease. CT ABD/PEL 09/09/2023 - Prominent pericecal inflammation. persistent 2.2 x 1.9 cm multiloculated collection more posteriorly along this inflammatory mass (2:105) which abuts the anterior right psoas. wall thickening and mural hyperenhancement involving the terminal ileum at the ileocecal valve. Approximately 7-10 cm upstream from the TI there is another 5 segment length of mural hyperenhancement and wall thickening without luminal narrowing (3:119), as the ileum courses adjacent to the inflamed adnexa/uterus. There is mild dilation of the upstream distal ileum measuring to 3.[address] ABD/PEL 09/15/2023 - Interval small bowel obstruction with transition point at the ongoing site of inflammation involving the terminal ileum/pericecal region. Decreasing fluid loculations in the right lower quadrant status post pigtail catheter drainage. No residual fluid collection. CT ABD/PEL 09/16/2023 - Decreased distention of stomach and proximal small bowel loops following NG tube placement with persistent low grade obstruction in the distal ileum secondary to inflamed segment of terminal ileum. Stable nonspecific terminal ileitis which is most suspicious for inflammatory bowel (Crohn's) disease given adjacent phlegmonous process but could relate to other infectious process. Stable phlegmonous process in the right lower quadrant. PHYSICAL EXAMINATION General Appearance: alert, oriented x 3, pleasant and in no acute distress Eyes: No icterus or conjunctival pallor.. Oropharynx: Lips, tongue, and oral mucosa normal. There is no thrush or oral ulcers. Lungs: breath sounds clear to auscultation bilaterally Heart: regular rate and rhythm, no murmurs or gallops. Abdomen: Not distended. Normal bowel sounds. Soft and non-tender. No masses or organomegaly. Drain mid abdomen Extremities: no cyanosis or edema. Skin: no rashes or lesions Lymph: No cervical, axillary, supraclavicular, or adenopathy. Assessment IMPRESSION 63 year old female with PMHx of seizure disorder, ETOH use, failure to thrive, Severe protein-calorie malnutrition, SBO, essential tremor, psoas abscess, depression. Pt presents today for care following recent hospital admission for intra- abdominal abscess with findings on CT of inflammation in terminal ileum. CT 09/16/2023 with Stable nonspecific terminal ileitiswhich is most suspicious for inflammatory bowel (Crohn's) disease given adjacent phlegmonous process but could relate to other infectious process. Will plan to repeat CTe today and obtain lab work. Depending on the result of CT would like to evaluate bowel inflammation with CSP and biopsy. Referralfor CORS. Pt to follow up in 1 month. PLAN Repeat CTe Labs today Colonoscopy CORS referral Follow up in 1 month Slade Carlisle APRN.[employer]ALL [employer] MACHINE TENDER GI STAFF I reviewed the history and physical obtained and documented by the fellow and I personally participated in the cortez components. The following comments revise or confirm relevant cortez elements of the ANTONIO note: - 5 BM/day, loose (normal is around 1) no blood - remains on full liquid diet - no family history of IBD Physical Exam: As documented by ANTONIO I discussed the case and the plans with the fellow with the following comments: Impression: Ms. Koch is a 63 year old with hx of EtoH use (sober x3 years) c/b seizure disorder (on vimpat and depokote) and remote tobacco use (quit 1996) here for post hospital discharge follow-upof intra-abdominal abscess. She reports colonoscopy approximately 5 years ago that was normal. In August, she developed severe abdominal pain and was admitted to OSH and diagnosed with perforated 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 for which a CT guided drain was placed. She was discharged on antibiotics but continued to have FTT and so represented to [facility], where she was followed by GI, ID, and gen surg. 09/04/23 CT with extensive pericecal inflamamtory changes involing TI, R adnexa (sequelae of complicated appendicits vs penetrating CD), 2.2 cm nondrainable along R psoas, pigtail catheter in place. Her course was c/b SBO which was managed conservatively with liquid diet with improvement. 09/09/23 CTE with prominent pericecal inflammation, persistent multiloculated fluid collection, wall thickening and mural hyperenhancement involving TI + ICV, approximately 7-10 cm upstream another 5 cm segment of mural hyperenhnacement and wall thickening,mild dilation of upstream distal ileum to 3.1 cm (differential sequelae of appendicities vs CD vs ap pendiceal mucinous neoplasm) + exophytic fibroid. 09/16/23 CT with stable nonspecific TI most suspicious for IBD given adjacent phlegmonous process. Discharged to SNF, plan at discharge had been full liquid diet until gen surg follow-up, repeat imaging, abx until ID follow-up, and consideration of colonoscopy in the outpatient setting. Currently with around 10-40 cc drain output. In the absence of tissue diagnosis, etiology remains unclear but certainly highly concerning for CDgiven overall presentation (though complicated 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 and appendiceal malignancy remain on ddx). Plan: - repeat CTE - abx as per ID team (follow-up with ID is scheduled for today) - await CTE and input from gen surg re drain removal and dietary advancement, would continue liquiddiet for now but if CTE stable to improving and OK by gen surg team would consider advancement - CORS c/s - would benefit from colonoscopy if able to tolerate prep, timing based on CTE findings - IBD labs - IBD nutrition c/s if affordable - patient asking whether she is safe to drive, recommend follow-up with PCP regarding this - follow-up with me after tests/in 1 month Roseanna Maldonado MD documented in this encounterSt. [facility]07[facility] History of Present illness Narrative* Amish Xavier APRN.CNP - 10/10/2023 11:06 AM EDT Incidental Lung Nodule Enrollment Outreach attempt: 1st Attempt Outreach status: Left message Enrolled in Lung Nodule program: Referred Lung Nodule outreach: Needs outreach Lung Nodule Program Location: [place] Called patient regarding CT Chest dated 09.16.2023 that incidentally showed a lung nodules. No answer. Left message Amish Xavier APRN.CNP documented in this encounterSt. Charles Hospital07-[facility]24 History of Present illness Narrative* Marisa Monaco - 10/09/2023 12:58 PM EDT Patient Discharged from Hospital Needs outreach documented in this encounterSt. Charles Hospital07-09-2024 Nurse Note* Fátima Roche RN - 10/03/2023 10:41 AM EDT REVIEW OF SYSTEMS: General: The patient denies fatigue, NOTES weight loss, denies weight gain, denies feeling hot, anddenies feelings of cold. Eyes: The patient denies glaucoma, denies eye injury/surgery, wears glasses or contacts. Ear/Nose/Throat: The patient NOTES allergies, denies hayfever, denies ear infections, and denies bloody noses. Cardiovascular: The patient denies chest pain, denies heart disease, denies high blood pressure,denies cardiac stent, denies prior heart attack, denies irregular heart beat, denies high cholesterol, denies poor circulation, denies heart failure, other cardiac issues, denies claudication, denies cold feet, denies peripheral arterial stent. Respiratory: The patient denies tuberculosis, denies pneumonia, denies frequent cough, denies pulmonary embolism, denies shortness of breath, and denies coughing up blood. Gastrointestinal: The patient denies difficulty swallowing, denies acid reflux, denies ulcers, denies vomiting, denies jaundice/hepatitis, denies gallbladder problems, denies black or tarry stools, denies hemorrhoids, denies bleeding from rectum, denies diverticulitis, denies constipation, NOTES diarrhea, denies loss of stool control, and denies hernias. Kidney/Bladder: The patient denies kidney stones, denies urine infections, and denies bloody urine. Skin: The patient denies a history of skin cancer, denies bleeding/changing moles, and denies a history of skin rash. Neurologic: The patient NOTES a history of epilepsy/convulsions, NOTES headaches, denies head/spinal injuries, and denies stroke/TIA. Psychiatric: The patient denies psychiatric medications, NOTES depression, and denies voices, NOTESsubstance abuse. Endocrine: The patient denies thyroid disorders, denies diabetes, and denies hormonal problems. Hematologic: The patient denies a history of bruising, denies bleeding, and NOTES anemia, denies blood clots. Infections: The patient denies a history of measles and mumps, denies rheumatic fever, and denies sexually transmitted diseases. Musculoskeletal: The patient denies back pain/injury, denies back problems, denies sciatica, deniesknee/foot trouble, denies arthritis, or denies gout. When was patient's last Mammogram screening? Unknown Last Colonoscopy: Unknown Fátima Roche RN [facility] Nurse Note* Fátima Roche RN - 10/03/2023 10:41 AM EDT REVIEW OF SYSTEMS: General: The patient denies fatigue, NOTES weight loss, denies weight gain, denies feeling hot, anddenies feelings of cold. Eyes: The patient denies glaucoma, denies eye injury/surgery, wears glasses or contacts. Ear/Nose/Throat: The patient NOTES allergies, denies hayfever, denies ear infections, and denies bloody noses. Cardiovascular: The patient denies chest pain, denies heart disease, denies high blood pressure,denies cardiac stent, denies prior heart attack, denies irregular heart beat, denies high cholesterol, denies poor circulation, denies heart failure, other cardiac issues, denies claudication, denies cold feet, denies peripheral arterial stent. Respiratory: The patient denies tuberculosis, denies pneumonia, denies frequent cough, denies pulmonary embolism, denies shortness of breath, and denies coughing up blood. Gastrointestinal: The patient denies difficulty swallowing, denies acid reflux, denies ulcers, denies vomiting, denies jaundice/hepatitis, denies gallbladder problems, denies black or tarry stools, denies hemorrhoids, denies bleeding from rectum, denies diverticulitis, denies constipation, NOTES diarrhea, denies loss of stool control, and denies hernias. Kidney/Bladder: The patient denies kidney stones, denies urine infections, and denies bloody urine. Skin: The patient denies a history of skin cancer, denies bleeding/changing moles, and denies a history of skin rash. Neurologic: The patient NOTES a history of epilepsy/convulsions, NOTES headaches, denies head/spinal injuries, and denies stroke/TIA. Psychiatric: The patient denies psychiatric medications, NOTES depression, and denies voices, NOTESsubstance abuse. Endocrine: The patient denies thyroid disorders, denies diabetes, and denies hormonal problems. Hematologic: The patient denies a history of bruising, denies bleeding, and NOTES anemia, denies blood clots. Infections: The patient denies a history of measles and mumps, denies rheumatic fever, and denies sexually transmitted diseases. Musculoskeletal: The patient denies back pain/injury, denies back problems, denies sciatica, deniesknee/foot trouble, denies arthritis, or denies gout. When was patient's last Mammogram screening? Unknown Last Colonoscopy: Unknown Fátima Rcohe RN documented in this encounterSt. Charles Hospital07-09-2024 History of Present illness Narrative* Jayla Fung MD - 10/03/2023 9:48 AM EDT Lakesha Koch 1960 REFERRING PHYSICIAN: Dennis Maldonado MD CHIEF COMPLAINT: Post Op Follow Up (Hospital follow-up) HPI: The patient is a 63 year old female presents with intraabdominal drain in place. Patient is a poor historian; she does not recall much of her hospitalization From review of the medical records - she had been admitted at [facility] for abdominal pain, and a phlegmonous process noted in the area of the appendix and ROCIO drain placed by CT guidance in this location. She was then admitted to [facility] for failure to thrive (poor po intake) on 09/08/2023 and discharged 09/27/2023. The ROCIO that she presently has in, I believe, is the one placed at [facility] (probably 09/01/2023) - no records available and patient does not know. She presently states that she is pain-free. Her last CT scan, that I can obtain from records is 09/16/2023. She denies any surgical procedures and I do not see any in the patient's hospitalizations - either [facility] or [facility]. She states that she is passing flatus. She notes loose bowel movements - 2-3 per day. She denies abdominal pain; she denies fevers. PAST MEDICAL HISTORY Diagnosis Date Anemia Anorexia nervosa Bowel wall thickening Daily consumption of alcohol Depression Essential tremor Failure to thrive in adult Feeding difficulties Focal epilepsy (HCC) Gait abnormality Inflammation of colonic mucosa Intestinal obstruction (HCC) Migraine Muscular deconditioning Perforated 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 with localized peritonitis, gangrene and abscess Psoas abscess, right (HCC) Seizures (HCC) Severe protein-calorie malnutrition (HCC) PAST SURGICAL HISTORY Procedure Laterality Date EXPLORATORY OF ABDOMEN 09/19/2023 ROCIO DRAIN TO BULB SUCTION 09/01/2023 for acute 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 with perforation, localized peritonitis, and gangrene. Current Outpatient Medications Medication Sig lacosamide (VIMPAT) 100 mg tab Take 1 tablet by mouth two times a day for 30 days. divalproex ER (DEPAKOTE ER) 500 mg 24 hr tablet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 Last Assessment & Plan: Assessment: weight loss since starting TPM, concern for malnutrition PLAN: Nutrition Consult Hold TPM Alcohol consumption of more than two drinks per day 01/28/2019 07/06/2021 Last Assessment & Plan: Assessment: 3 drinks per day PLAN: Encouraged drinking cessation/reduction Follow up with PCP documented as of this encounter (statuses as of 09/17/2021) [facility] History of Past illness Narrative* Problem Noted Date Resolved Date Severe protein-calorie malnutrition 01/29/2019 05/03/2019 Last Assessment & Plan: Assessment: 10% magdaleno loss in 6 months, Insufficient Energy, Subcutaneous Fat Loss, Severe Muscle Loss PLAN: Mighty shakes TID; Healthy shot protein modular BID; Beneprotein BID; HS snack; Encouraged added fats to help with wt gain. Nutrition Consult Appetite loss 01/28/2019 05/03/2019 Last Assessment & Plan: Assessment: weight loss since starting TPM, concern for malnutrition PLAN: Nutrition Consult Hold TPM Alcohol consumption of more than two drinks per day 01/28/2019 07/06/2021 Last Assessment & Plan: Assessment: 3 drinks per day PLAN: Encouraged drinking cessation/reduction Follow up with PCP documented as of this encounter (statuses as of 10/21/2021) [facility] of Past illness Narrative* Problem Noted Date Resolved Date Severe protein-calorie malnutrition 01/29/2019 05/03/2019 Last Assessment & Plan: Assessment: 10% magdaleno loss in 6 months, Insufficient Energy, Subcutaneous Fat Loss, Severe Muscle Loss PLAN: Mighty shakes TID; Healthy shot protein modular BID; Beneprotein BID; HS snack; Encouraged added fats to help with wt gain. Nutrition Consult Appetite loss 01/28/2019 05/03/2019 Last Assessment & Plan: Assessment: weight loss since starting TPM, concern for malnutrition PLAN: Nutrition Consult Hold TPM Alcohol consumption of more than two drinks per day 01/28/2019 07/06/2021 Last Assessment & Plan: Assessment: 3 drinks per day PLAN: Encouraged drinking cessation/reduction Follow up with PCP documented as of this encounter (statuses as of 07/21/2022) [facility] of Past illness Narrative* Problem Noted Date Resolved Date Severe protein-calorie malnutrition 01/29/2019 05/03/2019 Last Assessment & Plan: Assessment: 10% magdaleno loss in 6 months, Insufficient Energy, Subcutaneous Fat Loss, Severe Muscle Loss PLAN: Mighty shakes TID; Healthy shot protein modular BID; Beneprotein BID; HS snack; Encouraged added fats to help with wt gain. Nutrition Consult Appetite loss 01/28/2019 05/03/2019 Last Assessment & Plan: Assessment: weight loss since starting TPM, concern for malnutrition PLAN: Nutrition Consult Hold TPM Alcohol consumption of more than two drinks per day 01/28/2019 07/06/2021 Last Assessment & Plan: Assessment: 3 drinks per day PLAN: Encouraged drinking cessation/reduction Follow up with PCP documented as of this encounter (statuses as of 07/27/2022) [facility] of Past illness Narrative* Problem Noted Date Diagnosed Date Resolved Date Severe protein-calorie malnutrition 01/29/2019 05/03/2019 Last Assessment & Plan: Assessment: 10% magdaleno loss in 6 months, Insufficient Energy, Subcutaneous Fat Loss, Severe Muscle Loss PLAN: Mighty shakes TID; Healthy shot protein modular BID; Beneprotein BID; HS snack; Encouraged added fats to help with wt gain. Nutrition Consult Appetite loss 01/28/2019 05/03/2019 Last Assessment & Plan: Assessment: weight loss since starting TPM, concern for malnutrition PLAN: Nutrition Consult Hold TPM Alcohol consumption of more than two drinks per day 01/28/2019 07/06/2021 Last Assessment & Plan: Assessment: 3 drinks per day PLAN: Encouraged drinking cessation/reduction Follow up with PCP documented as of this encounter (statuses as of 01/18/2023) [facility] of Past illness Narrative* Problem Noted Date Diagnosed Date Resolved Date Severe protein-calorie malnutrition 01/29/2019 05/03/2019 Last Assessment & Plan: Assessment: 10% magdaleno loss in 6 months, Insufficient Energy, Subcutaneous Fat Loss, Severe Muscle Loss PLAN: Mighty shakes TID; Healthy shot protein modular BID; Beneprotein BID; HS snack; Encouraged added fats to help with wt gain. Nutrition Consult Appetite loss 01/28/2019 05/03/2019 Last Assessment & Plan: Assessment: weight loss since starting TPM, concern for malnutrition PLAN: Nutrition Consult Hold TPM Alcohol consumption of more than two drinks per day 01/28/2019 07/06/2021 Last Assessment & Plan: Assessment: 3 drinks per day PLAN: Encouraged drinking cessation/reduction Follow up with PCP documented as of this encounter (statuses as of 05/08/2023) [facility] Ankit Marsh [facility] Note Date/Time October 23, 2024 11:3 5am [facility] Medical Records Department [address] [place] [address] Emergency Department Summary 10/23/24 MR#: [id number] Acct: [id number] Name: LAKESHA KOCH Rep #:[id number] : 1960 64 From: Ankit Marsh MD PCP: Aubrey Lopez MECHANIC SENIOR-C Status:REG ER Location: ED HPI History of Present Illness Chief Complaint: Nausea/Vomiting/Diarrhea Narrative Narrative: 64-year-old female past medical history of recurrent colon carcinoma, supposed to start chemotherapy soon, recently had Mediport inserted last week and had tooth extraction yesterday, presents with nausea and vomiting since this morning. Around 530, 4 hours ago, she started having multiple episodes of vomiting without hematemesis. She vomited [address] to the emergency department. She feels she is dehydrated. She states that previously she was onoral chemotherapy, and is supposed to start infusions of chemotherapy for her recurrent carcinoma. She knows what dehydration feels like, and states that shecannot tolerate even sips of water. [facility] Medical History Seizure disorder Hypotension Marijuana abuse Alcohol dependence ETOH abuse IBS (irritable bowel syndrome) Anxiety Depression Seizure Home Medications ?Medication ?Instructions ?Recorded ?Last Taken ?Type alendronate 70 mg tablet 70 mg PO QWEEK Bone Health 0 10/18/23 Unknown History buspirone 7.5 mg tablet 7.5 mg PO DAILY Mood 4 09/04/24 08:50 History sertraline 50 mg tablet 50 mg PO DAILY Mood 10/18/23 09/04/24 08:50 History acetaminophen 500 mg tablet 1,000 mg (2 x 500 mg) PO Q 8 #0 tabs 09/12/24 Unknown Rx gabapentin 100 mg capsule 100 mg PO QHS 30 days #30 ca ps 09/12/24 Unknown Rx hydromorphone 2 mg tablet 2 - 4 mg (1 - 2 x 2 mg) PO Q 4H PRN 09/12/24 Unknown Rx PRN PAIN 6-10 7 days #42 tabs hydroxyzine pamoate 25 mg capsule 50 mg (2 x 25 mg) PO TID PRN PRN 09/12/24 Unknown Rx Itching 30 days #90 caps lidocaine 5 % topical patch 2 patch topical DAILY 30 d ays #60 09/12/24 Unknown Rx ea methocarbamol 750 mg tablet 750 mg PO Q8 30 days #90 t abs 09/12/24 Unknown Rx ondansetron 4 mg disintegrating 4 mg PO Q8H PRN PRN Na usea 30 days 09/12/24 Unknown Rx tablet #90 tabs Allergy/AdvReac Type Severity Reaction Status Date / Time erythromycin base Allergy TONGUE Verified 04/08/24 14:38 PEELS Family History Sister Melanoma Father Prostate CA Surgical History History of placement of ureteral stent History of resection of small bowel History of right salpingo-oophorectomy History of lysis of adhesions History of exploratory laparotomy 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 No fevers or chills, no exacerbating or alleviating factors. She did have bowel movements this morning. EXAM Physical Exam Narrative Exam Narrative: Afebrile. Vital signs noted. Nontoxic-appearing. Cardiovascular examination reveals mild tachycardia. Lungs clear to auscultation bilaterally. Abdomen is soft and nontender without guarding or rebound. Positive bowel sounds. No distention. Neurological examination nonfocal, nonlateralizing. Const Vital Signs: 10/23/24 09:17 Temperature 97.4 F L Temperature Source Temporal Pulse Rate 110 H Respiratory Rate 16 Blood Pressure 130/82 H Blood Pressure Mean 98 Pulse Ox 98 Oxygen Delivery Method Room Air MDM MDM MDM Narrative Medical decision making narrative: The differential diagnosis includes but not limited to gastroenteritis versus gastritis versus bowel obstruction versus pancreatitis. Patient states she is really not having that much abdominal pain. I discussed with her possible CT imaging, but she is declining. She was told that it limits my ability to rule out any obstruction, but she states that the abdominal pain is not her main concern and that she feels more dehydrated. She will be bolused IV fluids. However, we will not use her Mediport because she states that she has not been cleared for its use yet. I will check a CBC, CMP, and lipase to help rule out pancreatitis and look for any electrolyte abnormality or dehydration. Patient bolused normal saline 1 L intravenously. I reviewed her laboratory workand she has normal white count of 6.3 with hemoglobin 13.2, hematocrit 40.5, platelet count normal at 293. Electrolyte panel is significant for low carbon dioxide of 16.5 but normal sodium and potassium. BUN 19 with creatinine low at 0.65. LFTs are grossly unremarkable. Lipase normal at 27 so I doubt acute pancreatitis. Upon repeat examination, patient may have been experiencing dry heaving but feels well enough to go home. I discussed with her an additional bolus of IV fluids but through shared decision making, she would like to be discharged and continue her Zofran at home and follow-up with her physicians. She has Zofran at home that she can continue. Return instructions reviewed. Disposition is discharged home in stable condition. History & Record Review Discussion w/independent historian: Patient Additional record(s) reviewed:: Prior ED visit (Seen previously in the ED by myself personally.) Lab Data Attestation: I reviewed the patient's lab results. Labs: Laboratory Results - last 24 hr 10/23/24 09:40 WBC 6.3 RBC 4.44 Hgb 13.2 Hct 40.5 MCV 91.2 MCH 29.7 MCHC 32.6 RDW Std Deviation 45.9 H RDW Coeff of Yury 13.6 Plt Count 293 MPV 9.4 Immature Gran % (Auto) 0.300 Neut % (Auto) 74.0 H Lymph % (Auto) 17.9 L Campbell % (Auto) 4.8 Eos % (Auto) 2.2 Baso % (Auto) 0.8 Absolute Neuts (auto) 4.7 Absolute Lymphs (auto) 1.13 Nucleated RBC % 0 Sodium 138 Potassium 3.7 Chloride 108 Carbon Dioxide 16.5 L Anion Gap 14 BUN 19 Creatinine 0.65 L Est GFR (MDRD) Non-Af 98 BUN/Creatinine Ratio 29.3 H Glucose 139 H Calcium 9.4 Total Bilirubin 0.25 AST 23 ALT 8 Alkaline Phosphatase 100 Total Protein 7.7 Albumin 4.1 Globulin 3.6 Albumin/Globulin Ratio 1.2 Lipase 27 Discharge Plan Triage Chief Complaint: Nausea/Vomiting/Diarrhea ED Provider: Ankit Marsh Dx/Rx/DC Orders Clinical Impression: Colon cancer, Nausea and vomiting Instructions: ED Vomiting (Adult) Prescriptions: No Action sertraline 50 mg tablet 50 mg PO DAILY alendronate 70 mg tablet 70 mg PO QWEEK Patient Comments: Take once a week on Saturdays. buspirone 7.5 mg tablet 7.5 mg PO DAILY acetaminophen 500 mg Tablet 1,000 mg PO Q8 Qty: 0 0RF hydromorphone 2 mg Tablet 2 - 4 mg PO Q4H PRN PRN (Reason: PAIN 6-10) 7 Days Qty: 42 0RF methocarbamol 750 mg Tablet 750 mg PO Q8 30 Days Qty: 90 0RF lidocaine 5 % Adhesive Patch,Medicated 2 patch topical DAILY 30 Days Qty: 60 0RF gabapentin 100 mg Capsule 100 mg PO QHS 30 Days Qty: 30 0RF ondansetron 4 mg Tablet,Disintegrating 4 mg PO Q8H PRN PRN (Reason: Nausea) 30 Days Qty: 90 0RF hydroxyzine pamoate 25 mg Capsule 50 mg PO TID PRN PRN (Reason: Itching) 30 Days Qty: 90 0RF Primary Care Provider: Aubrey Lopez Referrals: Aubrey Lopez, MECHANIC SENIOR-C [Primary Care Provider] - As soon as possible Activity Restrictions/Additional Instructions: Continue your Zofran at home. Clear liquid diet and advance as tolerated. Drink plenty of oral fluids. Return with new or worsening symptoms. Print Language: Tajik Disposition Disposition: Home, Self Care What to do if you have Problems For any increased pain, shortness of breath, bleeding, nausea or vomiting, chestpain, or any unexpected problems, contact your Primary Care Provider. Call [facility] ([phone]) or report to the closest Emergency Room. Call 911 if necessary. 10/23/24 1135 <Electronically signed by Ankit Marsh MD> Cosigner Signature (if applicable): CC: Aubrey CURIEL MECHANIC SENIOR-C Jessica ~ Signed [facility] Work Phone: Discharge summary Author Saroj Puga [facility] Note Date/Time November 08, 2024 11 :33am [facility] Medical Records Department [address] [place] [address] Instructions for Home/Discharge Instructions 11/08/24 1131 MR#: [id number] Acct: [id number] Name: LAKESHA KOCH Rep #:[id number] : 1960 64 From: Saroj dao DO PCP: Aubrey Lopez MECHANIC SENIORNeptali Status:ADM IN Discharge Instructions DC O2, CPAP, BIPAP needs Home O2 Discharge instructions: No Dressing / Incision Discharge Activity: No Restrictions Follow Up Care Test Results: Test results from this visit will be discussed in further detail at your follow- up appointment, if applicable. Discharge Plan Admission Admit Date/Time: 11/07/24 15:14 Primary Reason for Your Visit: abdominal pain w/ diarrhea Attending Provider: Saroj Puga Primary Care Provider: Aubrey Lopez Consulting Providers: Annette Mendez Discharge Orders/Prescriptions Prescriptions: New vancomycin [Firvanq] 25 mg/mL Recon Soln 125 mg PO Q6 9 Days Qty: 180 0RF Continued sertraline 50 mg tablet 50 mg PO DAILY alendronate 70 mg tablet 70 mg PO QWEEK Patient Comments: Take once a week on Saturdays. buspirone 7.5 mg tablet 7.5 mg PO DAILY hydromorphone 2 mg Tablet 2 - 4 mg PO Q4H PRN PRN (Reason: PAIN 6-10) 7 Days Qty: 42 0RF methocarbamol 750 mg Tablet 750 mg PO Q8 30 Days Qty: 90 0RF lidocaine 5 % Adhesive Patch,Medicated 2 patch topical DAILY 30 Days Qty: 60 0RF gabapentin 100 mg Capsule 100 mg PO QHS 30 Days Qty: 30 0RF ondansetron 4 mg Tablet,Disintegrating 4 mg PO Q8H PRN PRN (Reason: Nausea) 30 Days Qty: 90 0RF hydroxyzine pamoate 25 mg Capsule 50 mg PO TID PRN PRN (Reason: Itching) 30 Days Qty: 90 0RF Discontinued acetaminophen 500 mg Tablet 1,000 mg PO Q8 Qty: 0 0RF Referrals / Follow Up: Aubrey Lopez, MECHANIC SENIOR-C [Primary Care Provider] - Disposition Disposition (needs filled in before D/C Order can be placed): Home, Self Care 11/08/24 1133<Electronically signed by Saroj Puga DO>Saroj Puga DO CC: Dr. 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) 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 partial seizures, without mention of intractable epilepsy Encounter for monitoring long-term anticonvulsant therapy Encounter for therapeutic drug monitoring documented in this encounter [facility] noteNo assessment information availableWEly[facility] Work Phone: Evaluation note* Diagnosis 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 Diagnosis 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, without mention of intractable epilepsy [facility]* Diagnosis 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, without mention of intractable epilepsy [facility] this [facility]* Diagnosis 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, without mention of intractable epilepsy [facility] 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, without mention of intractable epilepsy [facility] Diagnosis Lung nodule- Primary Solitary pulmonary nodule [facility] Diagnosis Encounter for fitting and adjustment of non-vascular catheter- Primary [facility] Diagnosis Lung nodule- Primary Solitary pulmonary nodule [facility]* Diagnosis Intra-abdominal abscess (HCC)- Primary Peritoneal abscess Encounter for screening for human immunodeficiency virus (HIV) Special screening examination for other specified viral diseases [facility] Diagnosis Inflammatory bowel disease- Primary Other and unspecified noninfectious gastroenteritis and colitis Perforated appendix Acute 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 with generalized peritonitis Severe protein-calorie malnutrition (HCC) Other severe protein-calorie malnutrition [facility] Diagnosis 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, without mention of intractable epilepsy Drug-induced tremor Abnormal involuntary movements [facility]* Diagnosis 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, without mention of intractable epilepsy Alcohol consumption of more than two drinks per day Other problems related to lifestyle Anxiety and depression Dysthymic disorder Recurrent seizures (HCC) Other forms of epilepsy and recurrent seizures without mention of intractable epilepsy Iron deficiency anemia secondary to inadequate dietary iron intake Appetite loss Anorexia Severe protein-calorie malnutrition (HCC) Other severe protein-calorie malnutrition 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, without mention of intractable epilepsy Iron deficiency anemia Iron deficiency anemia, unspecified Anxiety and depression Dysthymic disorder Lung nodule- Primary Solitary pulmonary nodule [facility] Diagnosis 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, without mention of intractable epilepsy Alcohol consumption of more than two drinks per day Other problems related to lifestyle Anxiety and depression Dysthymic disorder Recurrent seizures (HCC) Other forms of epilepsy and recurrent seizures without mention of intractable epilepsy Iron deficiency anemia secondary to inadequate dietary iron intake Appetite loss Anorexia Severe protein-calorie malnutrition (HCC) Other severe protein-calorie malnutrition 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, without mention of intractable epilepsy Iron deficiency anemia Iron deficiency anemia, unspecified Anxiety and depression Dysthymic disorder Right lower quadrant abdominal abscess (HCC)- Primary Peritoneal abscess Perforated appendix Acute 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 with generalized peritonitis Adult failure to thrive Perforated appendix Acute 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 with generalized peritonitis [facility] Diagnosis 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, without mention of intractable epilepsy Alcohol consumption of more than two drinks per day Other problems related to lifestyle Anxiety and depression Dysthymic disorder Recurrent seizures (HCC) Other forms of epilepsy and recurrent seizures without mention of intractable epilepsy Iron deficiency anemia secondary to inadequate dietary iron intake Appetite loss Anorexia Severe protein-calorie malnutrition (HCC) Other severe protein-calorie malnutrition 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, without mention of intractable epilepsy Iron deficiency anemia Iron deficiency anemia, unspecified Anxiety and depression Dysthymic disorder Perforated appendix- Primary Acute 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 with generalized peritonitis Perforated appendix Acute 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 with generalized peritonitis documented in this encounter [facility] note* Diagnosis 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, without mention of intractable epilepsy Alcohol consumption of more than two drinks per day Other problems related to lifestyle Anxiety and depression Dysthymic disorder Recurrent seizures (HCC) Other forms of epilepsy and recurrent seizures without mention of intractable epilepsy Iron deficiency anemia secondary to inadequate dietary iron intake Appetite loss Anorexia Severe protein-calorie malnutrition (HCC) Other severe protein-calorie malnutrition 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, without mention of intractable epilepsy Iron deficiency anemia Iron deficiency anemia, unspecified Anxiety and depression Dysthymic disorder Pre-op evaluation- Primary Preoperative examination, unspecified Seizures (HCC) Other convulsions Iron deficiency anemia secondary to inadequate dietary iron intake Anxiety and depression Dysthymic disorder Inflammation of colonic mucosa Other and unspecified noninfectious gastroenteritis and colitis Failure to thrive in adult Adult failure to thrive Perforated appendix- Primary Acute 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 with generalized peritonitis Perforated appendix Acute 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 with generalized peritonitis documented in this encounter [facility] note* Diagnosis 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, without mention of intractable epilepsy Alcohol consumption of more than two drinks per day Other problems related to lifestyle Anxiety and depression Dysthymic disorder Recurrent seizures (HCC) Other forms of epilepsy and recurrent seizures without mention of intractable epilepsy Iron deficiency anemia secondary to inadequate dietary iron intake Appetite loss Anorexia Severe protein-calorie malnutrition (HCC) Other severe protein-calorie malnutrition 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, without mention of intractable epilepsy Iron deficiency anemia Iron deficiency anemia, unspecified Anxiety and depression Dysthymic disorder Pre-op evaluation- Primary Preoperative examination, unspecified Seizures (HCC) Other convulsions Iron deficiency anemia secondary to inadequate dietary iron intake Anxiety and depression Dysthymic disorder Inflammation of colonic mucosa Other and unspecified noninfectious gastroenteritis and colitis Failure to thrive in adult Adult failure to thrive Perforated appendix Acute 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 with generalized peritonitis * Assessment & Plan Note - Lisbeth Alford PA-C - 12/28/2023 10:48 AM EDT Associated Problem(s): Failure to thrive in adult Assessment: Deconditioning and protein-calorie malnutrition. Drinking Boost now consistently. * Assessment & Plan Note - Lisbeth Alford PA-C - 12/28/2023 10:47 AM EDT Associated Problem(s): Inflammation of colonic mucosa Assessment: No new symptoms currently. Follows with GI now. CT 09/16/2023 with Stable nonspecific terminal ileitis which is most suspicious for inflammatory bowel (Crohn's) disease given adjacent phlegmonous process but could relate to other infectious process * Assessment & Plan Note - Lisbeth Alford PA-C - 12/28/2023 10:37 AM EDT Associated Problem(s): Anxiety and depression Assessment: Stable per pt, on rx. * Assessment & Plan Note - Lisbeth Alford PA-C - 12/28/2023 10:37 AM EDT Associated Problem(s): Iron deficiency anemia Assessment: Improving. Obtaining type and screen today. Hemoglobin (g/dL) Date Value 12/19/2023 11.1 09/26/2023 9.0 09/26/2023 8.8 12/29/2020 12.5 HGB (g/dL) Date Value 01/28/2019 14.0 Hematocrit (%) Date Value 12/19/2023 35.0 09/26/2023 27.7 09/26/2023 27.3 12/29/2020 39.6 01/28/2019 42.1 * Assessment & Plan Note - Lisbeth Alford PA-C - 12/28/2023 10:36 AM EDT Associated Problem(s): Seizures (HCC) Assessment: Follows with neuro for focal seizures. On rx. No seizure since May 2023. 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, without mention of intractable epilepsy Alcohol consumption of more than two drinks per day Other problems related to lifestyle Anxiety and depression Dysthymic disorder Recurrent seizures (HCC) Other forms of epilepsy and recurrent seizures without mention of intractable epilepsy Iron deficiency anemia secondary to inadequate dietary iron intake Appetite loss Anorexia Severe protein-calorie malnutrition (HCC) Other severe protein-calorie malnutrition 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, without mention of intractable epilepsy Iron deficiency anemia Iron deficiency anemia, unspecified Anxiety and depression Dysthymic disorder Pre-op evaluation- Primary Preoperative examination, unspecified Seizures (HCC) Other convulsions Iron deficiency anemia secondary to inadequate dietary iron intake Anxiety and depression Dysthymic disorder Inflammation of colonic mucosa Other and unspecified noninfectious gastroenteritis and colitis Failure to thrive in adult Adult failure to thrive Perforated appendix- Primary Acute 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 with generalized peritonitis 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, without mention of intractable epilepsy Alcohol consumption of more than two drinks per day Other problems related to lifestyle Anxiety and depression Dysthymic disorder Recurrent seizures (HCC) Other forms of epilepsy and recurrent seizures without mention of intractable epilepsy Iron deficiency anemia secondary to inadequate dietary iron intake Appetite loss Anorexia Severe protein-calorie malnutrition (HCC) Other severe protein-calorie malnutrition 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, without mention of intractable epilepsy Iron deficiency anemia Iron deficiency anemia, unspecified Anxiety and depression Dysthymic disorder Pre-op evaluation- Primary Preoperative examination, unspecified Seizures (HCC) Other convulsions Iron deficiency anemia secondary to inadequate dietary iron intake Anxiety and depression Dysthymic disorder Inflammation of colonic mucosa Other and unspecified noninfectious gastroenteritis and colitis Failure to thrive in adult Adult failure to thrive Right lower quadrant abdominal abscess (HCC)- Primary Peritoneal abscess Post-operative nausea and vomiting Nausea with vomiting 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, without mention of intractable epilepsy Alcohol consumption of more than two drinks per day Other problems related to lifestyle Anxiety and depression Dysthymic disorder Recurrent seizures (HCC) Other forms of epilepsy and recurrent seizures without mention of intractable epilepsy Iron deficiency anemia secondary to inadequate dietary iron intake Appetite loss Anorexia Severe protein-calorie malnutrition (HCC) Other severe protein-calorie malnutrition 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, without mention of intractable epilepsy Iron deficiency anemia Iron deficiency anemia, unspecified Anxiety and depression Dysthymic disorder Excessive physiologic tremor- Primary Essential and other specified forms of tremor 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, without mention of intractable epilepsy Abnormal thyroid blood test Nonspecific abnormal results of thyroid function study Essential tremor Essential and other specified forms of tremor Hypothyroidism, unspecified type Pre-op evaluation- Primary Preoperative examination, unspecified Seizures (HCC) Other convulsions Iron deficiency anemia secondary to inadequate dietary iron intake Anxiety and depression Dysthymic disorder Inflammation of colonic mucosa Other and unspecified noninfectious gastroenteritis and colitis Failure to thrive in adult Adult failure to thrive documented in this encounter [facility] note* Diagnosis 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, without mention of intractable epilepsy Alcohol consumption of more than two drinks per day Other problems related to lifestyle Anxiety and depression Dysthymic disorder Recurrent seizures (HCC) Other forms of epilepsy and recurrent seizures without mention of intractable epilepsy Iron deficiency anemia secondary to inadequate dietary iron intake Appetite loss Anorexia Severe protein-calorie malnutrition (HCC) Other severe protein-calorie malnutrition 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, without mention of intractable epilepsy Iron deficiency anemia Iron deficiency anemia, unspecified Anxiety and depression Dysthymic disorder Pre-op evaluation- Primary Preoperative examination, unspecified Seizures (HCC) Other convulsions Iron deficiency anemia secondary to inadequate dietary iron intake Anxiety and depression Dysthymic disorder Inflammation of colonic mucosa Other and unspecified noninfectious gastroenteritis and colitis Failure to thrive in adult Adult failure to thrive Intra-abdominal and pelvic swelling, mass and lump, unspecified site documented in this encounter [facility]* Diagnosis 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, without mention of intractable epilepsy Alcohol consumption of more than two drinks per day Other problems related to lifestyle Anxiety and depression Dysthymic disorder Recurrent seizures (HCC) Other forms of epilepsy and recurrent seizures without mention of intractable epilepsy Iron deficiency anemia secondary to inadequate dietary iron intake Appetite loss Anorexia Severe protein-calorie malnutrition (HCC) Other severe protein-calorie malnutrition 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, without mention of intractable epilepsy Iron deficiency anemia Iron deficiency anemia, unspecified Anxiety and depression Dysthymic disorder Pre-op evaluation- Primary Preoperative examination, unspecified Seizures (HCC) Other convulsions Iron deficiency anemia secondary to inadequate dietary iron intake Anxiety and depression Dysthymic disorder Inflammation of colonic mucosa Other and unspecified noninfectious gastroenteritis and colitis Failure to thrive in adult Adult failure to thrive Multiple lung nodules- Primary Other nonspecific abnormal finding of lung field Former tobacco use Personal history of tobacco use, presenting hazards to health Adenocarcinoma of cecum (HCC) Malignant neoplasm of cecum 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, without mention of intractable epilepsy Alcohol consumption of more than two drinks per day Other problems related to lifestyle Anxiety and depression Dysthymic disorder Recurrent seizures (HCC) Other forms of epilepsy and recurrent seizures without mention of intractable epilepsy Iron deficiency anemia secondary to inadequate dietary iron intake Appetite loss Anorexia Severe protein-calorie malnutrition (HCC) Other severe protein-calorie malnutrition 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, without mention of intractable epilepsy Iron deficiency anemia Iron deficiency anemia, unspecified Anxiety and depression Dysthymic disorder Pre-op evaluation- Primary Preoperative examination, unspecified Seizures (HCC) Other convulsions Iron deficiency anemia secondary to inadequate dietary iron intake Anxiety and depression Dysthymic disorder Inflammation of colonic mucosa Other and unspecified noninfectious gastroenteritis and colitis Failure to thrive in adult Adult failure to thrive Malignant neoplasm of ascending colon (HCC) Malignant neoplasm of ascending colon 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, without mention of intractable epilepsy Alcohol consumption of more than two drinks per day Other problems related to lifestyle Anxiety and depression Dysthymic disorder Recurrent seizures (HCC) Other forms of epilepsy and recurrent seizures without mention of intractable epilepsy Iron deficiency anemia secondary to inadequate dietary iron intake Appetite loss Anorexia Severe protein-calorie malnutrition (HCC) Other severe protein-calorie malnutrition 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, without mention of intractable epilepsy Alcohol consumption of more than two drinks per day Other problems related to lifestyle Anxiety and depression Dysthymic disorder Recurrent seizures (HCC) Other forms of epilepsy and recurrent seizures without mention of intractable epilepsy Iron deficiency anemia secondary to inadequate dietary iron intake Appetite loss Anorexia Severe protein-calorie malnutrition (HCC) Other severe protein-calorie malnutrition 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, without mention of intractable epilepsy Iron deficiency anemia Iron deficiency anemia, unspecified Anxiety and depression Dysthymic disorder Pre-op evaluation- Primary Preoperative examination, unspecified Seizures (HCC) Other convulsions Iron deficiency anemia secondary to inadequate dietary iron intake Anxiety and depression Dysthymic disorder Inflammation of colonic mucosa Other and unspecified noninfectious gastroenteritis and colitis Failure to thrive in adult Adult failure to thrive Malignant neoplasm of ascending colon (HCC)- Primary Malignant neoplasm of ascending colon 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, without mention of intractable epilepsy Alcohol consumption of more than two drinks per day Other problems related to lifestyle Anxiety and depression Dysthymic disorder Recurrent seizures (HCC) Other forms of epilepsy and recurrent seizures without mention of intractable epilepsy Iron deficiency anemia secondary to inadequate dietary iron intake Appetite loss Anorexia Severe protein-calorie malnutrition (HCC) Other severe protein-calorie malnutrition 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, without mention of intractable epilepsy Iron deficiency anemia Iron deficiency anemia, unspecified Anxiety and depression Dysthymic disorder Pre-op evaluation- Primary Preoperative examination, unspecified Seizures (HCC) Other convulsions Iron deficiency anemia secondary to inadequate dietary iron intake Anxiety and depression Dysthymic disorder Inflammation of colonic mucosa Other and unspecified noninfectious gastroenteritis and colitis Failure to thrive in adult Adult failure to thrive CINV (chemotherapy-induced nausea and vomiting)- Primary Nausea with vomiting 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, without mention of intractable epilepsy Alcohol consumption of more than two drinks per day Other problems related to lifestyle Anxiety and depression Dysthymic disorder Recurrent seizures (HCC) Other forms of epilepsy and recurrent seizures without mention of intractable epilepsy Iron deficiency anemia secondary to inadequate dietary iron intake Appetite loss Anorexia Severe protein-calorie malnutrition (HCC) Other severe protein-calorie malnutrition 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, without mention of intractable epilepsy Alcohol consumption of more than two drinks per day Other problems related to lifestyle Anxiety and depression Dysthymic disorder Recurrent seizures (HCC) Other forms of epilepsy and recurrent seizures without mention of intractable epilepsy Iron deficiency anemia secondary to inadequate dietary iron intake Appetite loss Anorexia Severe protein-calorie malnutrition (HCC) Other severe protein-calorie malnutrition 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, without mention of intractable epilepsy Iron deficiency anemia Iron deficiency anemia, unspecified Anxiety and depression Dysthymic disorder Pre-op evaluation- Primary Preoperative examination, unspecified Seizures (HCC) Other convulsions Iron deficiency anemia secondary to inadequate dietary iron intake Anxiety and depression Dysthymic disorder Inflammation of colonic mucosa Other and unspecified noninfectious gastroenteritis and colitis Failure to thrive in adult Adult failure to thrive Malignant neoplasm of ascending colon (HCC)- Primary Malignant neoplasm of ascending colon Intra-abdominal and pelvic swelling, mass and lump, unspecified site 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, without mention of intractable epilepsy Alcohol consumption of more than two drinks per day Other problems related to lifestyle Anxiety and depression Dysthymic disorder Recurrent seizures (HCC) Other forms of epilepsy and recurrent seizures without mention of intractable epilepsy Iron deficiency anemia secondary to inadequate dietary iron intake Appetite loss Anorexia Severe protein-calorie malnutrition (HCC) Other severe protein-calorie malnutrition 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, without mention of intractable epilepsy Iron deficiency anemia Iron deficiency anemia, unspecified Anxiety and depression Dysthymic disorder Pre-op evaluation- Primary Preoperative examination, unspecified Seizures (HCC) Other convulsions Iron deficiency anemia secondary to inadequate dietary iron intake Anxiety and depression Dysthymic disorder Inflammation of colonic mucosa Other and unspecified noninfectious gastroenteritis and colitis Failure to thrive in adult Adult failure to thrive RLQ abdominal pain- Primary Abdominal pain, right lower quadrant Right lower quadrant abdominal pain Abdominal pain, right lower quadrant documented in this encounter [facility] note* Diagnosis 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, without mention of intractable epilepsy Alcohol consumption of more than two drinks per day Other problems related to lifestyle Anxiety and depression Dysthymic disorder Recurrent seizures (HCC) Other forms of epilepsy and recurrent seizures without mention of intractable epilepsy Iron deficiency anemia secondary to inadequate dietary iron intake Appetite loss Anorexia Severe protein-calorie malnutrition (HCC) Other severe protein-calorie malnutrition 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, without mention of intractable epilepsy Iron deficiency anemia Iron deficiency anemia, unspecified Anxiety and depression Dysthymic disorder Pre-op evaluation- Primary Preoperative examination, unspecified Seizures (HCC) Other convulsions Iron deficiency anemia secondary to inadequate dietary iron intake Anxiety and depression Dysthymic disorder Inflammation of colonic mucosa Other and unspecified noninfectious gastroenteritis and colitis Failure to thrive in adult Adult failure to thrive Right lower quadrant abdominal pain Abdominal pain, right lower quadrant [facility] Diagnosis 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, without mention of intractable epilepsy Alcohol consumption of more than two drinks per day Other problems related to lifestyle Anxiety and depression Dysthymic disorder Recurrent seizures (HCC) Other forms of epilepsy and recurrent seizures without mention of intractable epilepsy Iron deficiency anemia secondary to inadequate dietary iron intake Appetite loss Anorexia Severe protein-calorie malnutrition (HCC) Other severe protein-calorie malnutrition 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, without mention of intractable epilepsy Iron deficiency anemia Iron deficiency anemia, unspecified Anxiety and depression Dysthymic disorder Pre-op evaluation- Primary Preoperative examination, unspecified Seizures (HCC) Other convulsions Iron deficiency anemia secondary to inadequate dietary iron intake Anxiety and depression Dysthymic disorder Inflammation of colonic mucosa Other and unspecified noninfectious gastroenteritis and colitis Failure to thrive in adult Adult failure to thrive Multiple lung nodules- Primary Other nonspecific abnormal finding of lung field Lung nodules Other nonspecific abnormal finding of lung field documented in this encounter [facility] note* Diagnosis 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, without mention of intractable epilepsy Alcohol consumption of more than two drinks per day Other problems related to lifestyle Anxiety and depression Dysthymic disorder Recurrent seizures (HCC) Other forms of epilepsy and recurrent seizures without mention of intractable epilepsy Iron deficiency anemia secondary to inadequate dietary iron intake Appetite loss Anorexia Severe protein-calorie malnutrition (HCC) Other severe protein-calorie malnutrition 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, without mention of intractable epilepsy Iron deficiency anemia Iron deficiency anemia, unspecified Anxiety and depression Dysthymic disorder Pre-op evaluation- Primary Preoperative examination, unspecified Seizures (HCC) Other convulsions Iron deficiency anemia secondary to inadequate dietary iron intake Anxiety and depression Dysthymic disorder Inflammation of colonic mucosa Other and unspecified noninfectious gastroenteritis and colitis Failure to thrive in adult Adult failure to thrive Malignant neoplasm of cecum (HCC)- Primary Malignant neoplasm of cecum documented in this encounter [facility] note* Diagnosis 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, without mention of intractable epilepsy Alcohol consumption of more than two drinks per day Other problems related to lifestyle Anxiety and depression Dysthymic disorder Recurrent seizures (HCC) Other forms of epilepsy and recurrent seizures without mention of intractable epilepsy Iron deficiency anemia secondary to inadequate dietary iron intake Appetite loss Anorexia Severe protein-calorie malnutrition (HCC) Other severe protein-calorie malnutrition 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, without mention of intractable epilepsy Iron deficiency anemia Iron deficiency anemia, unspecified Anxiety and depression Dysthymic disorder Pre-op evaluation- Primary Preoperative examination, unspecified Seizures (HCC) Other convulsions Iron deficiency anemia secondary to inadequate dietary iron intake Anxiety and depression Dysthymic disorder Inflammation of colonic mucosa Other and unspecified noninfectious gastroenteritis and colitis Failure to thrive in adult Adult failure to thrive Gastroenteritis- Primary Other and unspecified noninfectious gastroenteritis and colitis Dehydration 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, without mention of intractable epilepsy Alcohol consumption of more than two drinks per day Other problems related to lifestyle Anxiety and depression Dysthymic disorder Recurrent seizures (HCC) Other forms of epilepsy and recurrent seizures without mention of intractable epilepsy Iron deficiency anemia secondary to inadequate dietary iron intake Appetite loss Anorexia Severe protein-calorie malnutrition (HCC) Other severe protein-calorie malnutrition 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, without mention of intractable epilepsy Alcohol consumption of more than two drinks per day Other problems related to lifestyle Anxiety and depression Dysthymic disorder Recurrent seizures (HCC) Other forms of epilepsy and recurrent seizures without mention of intractable epilepsy Iron deficiency anemia secondary to inadequate dietary iron intake Appetite loss Anorexia Severe protein-calorie malnutrition (HCC) Other severe protein-calorie malnutrition 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, without mention of intractable epilepsy Iron deficiency anemia Iron deficiency anemia, unspecified Anxiety and depression Dysthymic disorder Pre-op evaluation- Primary Preoperative examination, unspecified Seizures (HCC) Other convulsions Iron deficiency anemia secondary to inadequate dietary iron intake Anxiety and depression Dysthymic disorder Inflammation of colonic mucosa Other and unspecified noninfectious gastroenteritis and colitis Failure to thrive in adult Adult failure to thrive RLQ abdominal pain- Primary Abdominal pain, right lower quadrant Severe protein-calorie malnutrition (HCC) Other severe protein-calorie malnutrition 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, without mention of intractable epilepsy Alcohol consumption of more than two drinks per day Other problems related to lifestyle Anxiety and depression Dysthymic disorder Recurrent seizures (HCC) Other forms of epilepsy and recurrent seizures without mention of intractable epilepsy Iron deficiency anemia secondary to inadequate dietary iron intake Appetite loss Anorexia Severe protein-calorie malnutrition (HCC) Other severe protein-calorie malnutrition 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, without mention of intractable epilepsy Iron deficiency anemia Iron deficiency anemia, unspecified Anxiety and depression Dysthymic disorder Pre-op evaluation- Primary Preoperative examination, unspecified Seizures (HCC) Other convulsions Iron deficiency anemia secondary to inadequate dietary iron intake Anxiety and depression Dysthymic disorder Inflammation of colonic mucosa Other and unspecified noninfectious gastroenteritis and colitis Failure to thrive in adult Adult failure to thrive Malignant neoplasm of ascending colon (HCC)- Primary Malignant neoplasm of ascending colon CINV (chemotherapy-induced nausea and vomiting) Nausea with vomiting Hypokalemia Hypopotassemia 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, without mention of intractable epilepsy Alcohol consumption of more than two drinks per day Other problems related to lifestyle Anxiety and depression Dysthymic disorder Recurrent seizures (HCC) Other forms of epilepsy and recurrent seizures without mention of intractable epilepsy Iron deficiency anemia secondary to inadequate dietary iron intake Appetite loss Anorexia Severe protein-calorie malnutrition (HCC) Other severe protein-calorie malnutrition 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, without mention of intractable epilepsy Alcohol consumption of more than two drinks per day Other problems related to lifestyle Anxiety and depression Dysthymic disorder Recurrent seizures (HCC) Other forms of epilepsy and recurrent seizures without mention of intractable epilepsy Iron deficiency anemia secondary to inadequate dietary iron intake Appetite loss Anorexia Severe protein-calorie malnutrition (HCC) Other severe protein-calorie malnutrition 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, without mention of intractable epilepsy Iron deficiency anemia Iron deficiency anemia, unspecified Anxiety and depression Dysthymic disorder Pre-op evaluation- Primary Preoperative examination, unspecified Seizures (HCC) Other convulsions Iron deficiency anemia secondary to inadequate dietary iron intake Anxiety and depression Dysthymic disorder Inflammation of colonic mucosa Other and unspecified noninfectious gastroenteritis and colitis Failure to thrive in adult Adult failure to thrive Lung nodules Other nonspecific abnormal finding of lung field 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, without mention of intractable epilepsy Alcohol consumption of more than two drinks per day Other problems related to lifestyle Anxiety and depression Dysthymic disorder Recurrent seizures (HCC) Other forms of epilepsy and recurrent seizures without mention of intractable epilepsy Iron deficiency anemia secondary to inadequate dietary iron intake Appetite loss Anorexia Severe protein-calorie malnutrition (HCC) Other severe protein-calorie malnutrition 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, without mention of intractable epilepsy Iron deficiency anemia Iron deficiency anemia, unspecified Anxiety and depression Dysthymic disorder Pre-op evaluation- Primary Preoperative examination, unspecified Seizures (HCC) Other convulsions Iron deficiency anemia secondary to inadequate dietary iron intake Anxiety and depression Dysthymic disorder Inflammation of colonic mucosa Other and unspecified noninfectious gastroenteritis and colitis Failure to thrive in adult Adult failure to thrive Malignant neoplasm of ascending colon (HCC)- Primary Malignant neoplasm of ascending colon 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, without mention of intractable epilepsy Alcohol consumption of more than two drinks per day Other problems related to lifestyle Anxiety and depression Dysthymic disorder Recurrent seizures (HCC) Other forms of epilepsy and recurrent seizures without mention of intractable epilepsy Iron deficiency anemia secondary to inadequate dietary iron intake Appetite loss Anorexia Severe protein-calorie malnutrition (HCC) Other severe protein-calorie malnutrition 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, without mention of intractable epilepsy Iron deficiency anemia Iron deficiency anemia, unspecified Anxiety and depression Dysthymic disorder Pre-op evaluation- Primary Preoperative examination, unspecified Seizures (HCC) Other convulsions Iron deficiency anemia secondary to inadequate dietary iron intake Anxiety and depression Dysthymic disorder Inflammation of colonic mucosa Other and unspecified noninfectious gastroenteritis and colitis Failure to thrive in adult Adult failure to thrive Lung nodules- Primary Other nonspecific abnormal finding of lung field Former tobacco use Personal history of tobacco use, presenting hazards to health Adenocarcinoma of cecum (HCC) Malignant neoplasm of cecum 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, without mention of intractable epilepsy Alcohol consumption of more than two drinks per day Other problems related to lifestyle Anxiety and depression Dysthymic disorder Recurrent seizures (HCC) Other forms of epilepsy and recurrent seizures without mention of intractable epilepsy Iron deficiency anemia secondary to inadequate dietary iron intake Appetite loss Anorexia Severe protein-calorie malnutrition (HCC) Other severe protein-calorie malnutrition 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, without mention of intractable epilepsy Alcohol consumption of more than two drinks per day Other problems related to lifestyle Anxiety and depression Dysthymic disorder Recurrent seizures (HCC) Other forms of epilepsy and recurrent seizures without mention of intractable epilepsy Iron deficiency anemia secondary to inadequate dietary iron intake Appetite loss Anorexia Severe protein-calorie malnutrition (HCC) Other severe protein-calorie malnutrition 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, without mention of intractable epilepsy Iron deficiency anemia Iron deficiency anemia, unspecified Anxiety and depression Dysthymic disorder Pre-op evaluation- Primary Preoperative examination, unspecified Seizures (HCC) Other convulsions Iron deficiency anemia secondary to inadequate dietary iron intake Anxiety and depression Dysthymic disorder Inflammation of colonic mucosa Other and unspecified noninfectious gastroenteritis and colitis Failure to thrive in adult Adult failure to thrive Malignant neoplasm of cecum (HCC)- Primary Malignant neoplasm of cecum 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, without mention of intractable epilepsy Alcohol consumption of more than two drinks per day Other problems related to lifestyle Anxiety and depression Dysthymic disorder Recurrent seizures (HCC) Other forms of epilepsy and recurrent seizures without mention of intractable epilepsy Iron deficiency anemia secondary to inadequate dietary iron intake Appetite loss Anorexia Severe protein-calorie malnutrition (HCC) Other severe protein-calorie malnutrition 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, without mention of intractable epilepsy Iron deficiency anemia Iron deficiency anemia, unspecified Anxiety and depression Dysthymic disorder Pre-op evaluation- Primary Preoperative examination, unspecified Seizures (HCC) Other convulsions Iron deficiency anemia secondary to inadequate dietary iron intake Anxiety and depression Dysthymic disorder Inflammation of colonic mucosa Other and unspecified noninfectious gastroenteritis and colitis Failure to thrive in adult Adult failure to thrive Adenocarcinoma of cecum (HCC)- Primary Malignant neoplasm of cecum Weight loss Loss of weight Severe protein-calorie malnutrition (HCC) Other severe protein-calorie malnutrition 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, without mention of intractable epilepsy Alcohol consumption of more than two drinks per day Other problems related to lifestyle Anxiety and depression Dysthymic disorder Recurrent seizures (HCC) Other forms of epilepsy and recurrent seizures without mention of intractable epilepsy Iron deficiency anemia secondary to inadequate dietary iron intake Appetite loss Anorexia Severe protein-calorie malnutrition (HCC) Other severe protein-calorie malnutrition 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, without mention of intractable epilepsy Iron deficiency anemia Iron deficiency anemia, unspecified Anxiety and depression Dysthymic disorder Pre-op evaluation- Primary Preoperative examination, unspecified Seizures (HCC) Other convulsions Iron deficiency anemia secondary to inadequate dietary iron intake Anxiety and depression Dysthymic disorder Inflammation of colonic mucosa Other and unspecified noninfectious gastroenteritis and colitis Failure to thrive in adult Adult failure to thrive Weight loss Loss of weight Severe protein-calorie malnutrition (HCC) Other severe protein-calorie malnutrition Adenocarcinoma of cecum (HCC) Malignant neoplasm of cecum documented in this encounter [facility] note* Diagnosis 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, without mention of intractable epilepsy Alcohol consumption of more than two drinks per day Other problems related to lifestyle Anxiety and depression Dysthymic disorder Recurrent seizures (HCC) Other forms of epilepsy and recurrent seizures without mention of intractable epilepsy Iron deficiency anemia secondary to inadequate dietary iron intake Appetite loss Anorexia Severe protein-calorie malnutrition (HCC) Other severe protein-calorie malnutrition 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, without mention of intractable epilepsy Iron deficiency anemia Iron deficiency anemia, unspecified Anxiety and depression Dysthymic disorder Pre-op evaluation- Primary Preoperative examination, unspecified Seizures (HCC) Other convulsions Iron deficiency anemia secondary to inadequate dietary iron intake Anxiety and depression Dysthymic disorder Inflammation of colonic mucosa Other and unspecified noninfectious gastroenteritis and colitis Failure to thrive in adult Adult failure to thrive Right lower quadrant abdominal pain- Primary Abdominal pain, right lower quadrant documented in this encounter [facility] note* Diagnosis 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, without mention of intractable epilepsy Alcohol consumption of more than two drinks per day Other problems related to lifestyle Anxiety and depression Dysthymic disorder Recurrent seizures (HCC) Other forms of epilepsy and recurrent seizures without mention of intractable epilepsy Iron deficiency anemia secondary to inadequate dietary iron intake Appetite loss Anorexia Severe protein-calorie malnutrition (HCC) Other severe protein-calorie malnutrition 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, without mention of intractable epilepsy Iron deficiency anemia Iron deficiency anemia, unspecified Anxiety and depression Dysthymic disorder Pre-op evaluation- Primary Preoperative examination, unspecified Seizures (HCC) Other convulsions Iron deficiency anemia secondary to inadequate dietary iron intake Anxiety and depression Dysthymic disorder Inflammation of colonic mucosa Other and unspecified noninfectious gastroenteritis and colitis Failure to thrive in adult Adult failure to thrive Malignant neoplasm of ascending colon (HCC)- Primary Malignant neoplasm of ascending 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, without mention of intractable epilepsy Alcohol consumption of more than two drinks per day Other problems related to lifestyle Anxiety and depression Dysthymic disorder Recurrent seizures (HCC) Other forms of epilepsy and recurrent seizures without mention of intractable epilepsy Iron deficiency anemia secondary to inadequate dietary iron intake Appetite loss Anorexia Severe protein-calorie malnutrition (HCC) Other severe protein-calorie malnutrition 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, without mention of intractable epilepsy Iron deficiency anemia Iron deficiency anemia, unspecified Anxiety and depression Dysthymic disorder Pre-op evaluation- Primary Preoperative examination, unspecified Seizures (HCC) Other convulsions Iron deficiency anemia secondary to inadequate dietary iron intake Anxiety and depression Dysthymic disorder Inflammation of colonic mucosa Other and unspecified noninfectious gastroenteritis and colitis Failure to thrive in adult Adult failure to thrive Right lower quadrant abdominal pain Abdominal pain, right lower quadrant [facility] Diagnosis 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, without mention of intractable epilepsy Alcohol consumption of more than two drinks per day Other problems related to lifestyle Anxiety and depression Dysthymic disorder Recurrent seizures (HCC) Other forms of epilepsy and recurrent seizures without mention of intractable epilepsy Iron deficiency anemia secondary to inadequate dietary iron intake Appetite loss Anorexia Severe protein-calorie malnutrition (HCC) Other severe protein-calorie malnutrition 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, without mention of intractable epilepsy Iron deficiency anemia Iron deficiency anemia, unspecified Anxiety and depression Dysthymic disorder Pre-op evaluation- Primary Preoperative examination, unspecified Seizures (HCC) Other convulsions Iron deficiency anemia secondary to inadequate dietary iron intake Anxiety and depression Dysthymic disorder Inflammation of colonic mucosa Other and unspecified noninfectious gastroenteritis and colitis Failure to thrive in adult Adult failure to thrive Malignant neoplasm of cecum (HCC) Malignant neoplasm of cecum Other intra-abdominal and pelvic swelling, mass and lump documented in this encounter [facility] note* Diagnosis 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, without mention of intractable epilepsy Alcohol consumption of more than two drinks per day Other problems related to lifestyle Anxiety and depression Dysthymic disorder Recurrent seizures (HCC) Other forms of epilepsy and recurrent seizures without mention of intractable epilepsy Iron deficiency anemia secondary to inadequate dietary iron intake Appetite loss Anorexia Severe protein-calorie malnutrition (HCC) Other severe protein-calorie malnutrition 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, without mention of intractable epilepsy Iron deficiency anemia Iron deficiency anemia, unspecified Anxiety and depression Dysthymic disorder Pre-op evaluation- Primary Preoperative examination, unspecified Seizures (HCC) Other convulsions Iron deficiency anemia secondary to inadequate dietary iron intake Anxiety and depression Dysthymic disorder Inflammation of colonic mucosa Other and unspecified noninfectious gastroenteritis and colitis Failure to thrive in adult Adult failure to thrive Other intra-abdominal and pelvic swelling, mass and lump- Primary Other intra-abdominal and pelvic swelling, mass and lump [facility] Diagnosis 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, without mention of intractable epilepsy Alcohol consumption of more than two drinks per day Other problems related to lifestyle Anxiety and depression Dysthymic disorder Recurrent seizures (HCC) Other forms of epilepsy and recurrent seizures without mention of intractable epilepsy Iron deficiency anemia secondary to inadequate dietary iron intake Appetite loss Anorexia Severe protein-calorie malnutrition (HCC) Other severe protein-calorie malnutrition 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, without mention of intractable epilepsy Iron deficiency anemia Iron deficiency anemia, unspecified Anxiety and depression Dysthymic disorder Pre-op evaluation- Primary Preoperative examination, unspecified Seizures (HCC) Other convulsions Iron deficiency anemia secondary to inadequate dietary iron intake Anxiety and depression Dysthymic disorder Inflammation of colonic mucosa Other and unspecified noninfectious gastroenteritis and colitis Failure to thrive in adult Adult failure to thrive Other intra-abdominal and pelvic swelling, mass and lump- Primary Iron deficiency anemia secondary to inadequate dietary iron intake Seizures (HCC) Other convulsions Severe protein-calorie malnutrition (HCC) Other severe protein-calorie malnutrition Adenocarcinoma of cecum (HCC) Malignant neoplasm of cecum Generalized abdominal pain Abdominal pain, generalized Other intra-abdominal and pelvic swelling, mass and lump documented in this encounter [facility] note* Diagnosis 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, without mention of intractable epilepsy Alcohol consumption of more than two drinks per day Other problems related to lifestyle Anxiety and depression Dysthymic disorder Recurrent seizures (HCC) Other forms of epilepsy and recurrent seizures without mention of intractable epilepsy Iron deficiency anemia secondary to inadequate dietary iron intake Appetite loss Anorexia Severe protein-calorie malnutrition (HCC) Other severe protein-calorie malnutrition 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, without mention of intractable epilepsy Iron deficiency anemia Iron deficiency anemia, unspecified Anxiety and depression Dysthymic disorder Pre-op evaluation- Primary Preoperative examination, unspecified Seizures (HCC) Other convulsions Iron deficiency anemia secondary to inadequate dietary iron intake Anxiety and depression Dysthymic disorder Inflammation of colonic mucosa Other and unspecified noninfectious gastroenteritis and colitis Failure to thrive in adult Adult failure to thrive Adenocarcinoma of cecum (HCC)- Primary Malignant neoplasm of cecum documented in this encounter [facility] note* Diagnosis 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, without mention of intractable epilepsy Alcohol consumption of more than two drinks per day Other problems related to lifestyle Anxiety and depression Dysthymic disorder Recurrent seizures (HCC) Other forms of epilepsy and recurrent seizures without mention of intractable epilepsy Iron deficiency anemia secondary to inadequate dietary iron intake Appetite loss Anorexia Severe protein-calorie malnutrition (HCC) Other severe protein-calorie malnutrition 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, without mention of intractable epilepsy Iron deficiency anemia Iron deficiency anemia, unspecified Anxiety and depression Dysthymic disorder Pre-op evaluation- Primary Preoperative examination, unspecified Seizures (HCC) Other convulsions Iron deficiency anemia secondary to inadequate dietary iron intake Anxiety and depression Dysthymic disorder Inflammation of colonic mucosa Other and unspecified noninfectious gastroenteritis and colitis Failure to thrive in adult Adult failure to thrive Adenocarcinoma of cecum (HCC) Malignant neoplasm of cecum documented in this encounter [facility] note* Diagnosis 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, without mention of intractable epilepsy Alcohol consumption of more than two drinks per day Other problems related to lifestyle Anxiety and depression Dysthymic disorder Recurrent seizures (HCC) Other forms of epilepsy and recurrent seizures without mention of intractable epilepsy Iron deficiency anemia secondary to inadequate dietary iron intake Appetite loss Anorexia Severe protein-calorie malnutrition (HCC) Other severe protein-calorie malnutrition 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, without mention of intractable epilepsy Iron deficiency anemia Iron deficiency anemia, unspecified Anxiety and depression Dysthymic disorder Pre-op evaluation- Primary Preoperative examination, unspecified Seizures (HCC) Other convulsions Iron deficiency anemia secondary to inadequate dietary iron intake Anxiety and depression Dysthymic disorder Inflammation of colonic mucosa Other and unspecified noninfectious gastroenteritis and colitis Failure to thrive in adult Adult failure to thrive Malignant neoplasm of ascending colon (HCC)- Primary Malignant neoplasm of ascending colon Malignant neoplasm of ascending colon (HCC) Malignant neoplasm of ascending colon 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, without mention of intractable epilepsy Alcohol consumption of more than two drinks per day Other problems related to lifestyle Anxiety and depression Dysthymic disorder Recurrent seizures (HCC) Other forms of epilepsy and recurrent seizures without mention of intractable epilepsy Iron deficiency anemia secondary to inadequate dietary iron intake Appetite loss Anorexia Severe protein-calorie malnutrition (HCC) Other severe protein-calorie malnutrition 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, without mention of intractable epilepsy Iron deficiency anemia Iron deficiency anemia, unspecified Anxiety and depression Dysthymic disorder Pre-op evaluation- Primary Preoperative examination, unspecified Seizures (HCC) Other convulsions Iron deficiency anemia secondary to inadequate dietary iron intake Anxiety and depression Dysthymic disorder Inflammation of colonic mucosa Other and unspecified noninfectious gastroenteritis and colitis Failure to thrive in adult Adult failure to thrive Right upper quadrant abdominal pain- Primary Abdominal pain, right upper quadrant Intra-abdominal and pelvic swelling, mass and lump, unspecified site Malignant neoplasm of ascending colon (HCC) Malignant neoplasm of ascending colon 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, without mention of intractable epilepsy Alcohol consumption of more than two drinks per day Other problems related to lifestyle Anxiety and depression Dysthymic disorder Recurrent seizures (HCC) Other forms of epilepsy and recurrent seizures without mention of intractable epilepsy Iron deficiency anemia secondary to inadequate dietary iron intake Appetite loss Anorexia Severe protein-calorie malnutrition (HCC) Other severe protein-calorie malnutrition 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, without mention of intractable epilepsy Iron deficiency anemia Iron deficiency anemia, unspecified Anxiety and depression Dysthymic disorder Pre-op evaluation- Primary Preoperative examination, unspecified Seizures (HCC) Other convulsions Iron deficiency anemia secondary to inadequate dietary iron intake Anxiety and depression Dysthymic disorder Inflammation of colonic mucosa Other and unspecified noninfectious gastroenteritis and colitis Failure to thrive in adult Adult failure to thrive Malignant neoplasm of cecum (HCC)- Primary Malignant neoplasm of cecum Malignant neoplasm of ascending colon (HCC) Malignant neoplasm of ascending colon 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, without mention of intractable epilepsy Alcohol consumption of more than two drinks per day Other problems related to lifestyle Anxiety and depression Dysthymic disorder Recurrent seizures (HCC) Other forms of epilepsy and recurrent seizures without mention of intractable epilepsy Iron deficiency anemia secondary to inadequate dietary iron intake Appetite loss Anorexia Severe protein-calorie malnutrition (HCC) Other severe protein-calorie malnutrition 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, without mention of intractable epilepsy Iron deficiency anemia Iron deficiency anemia, unspecified Anxiety and depression Dysthymic disorder Pre-op evaluation- Primary Preoperative examination, unspecified Seizures (HCC) Other convulsions Iron deficiency anemia secondary to inadequate dietary iron intake Anxiety and depression Dysthymic disorder Inflammation of colonic mucosa Other and unspecified noninfectious gastroenteritis and colitis Failure to thrive in adult Adult failure to thrive RLQ abdominal pain- Primary Abdominal pain, right lower quadrant Malignant neoplasm of ascending colon (HCC) Malignant neoplasm of ascending colon Malignant neoplasm of ascending colon (HCC) Malignant neoplasm of ascending colon 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, without mention of intractable epilepsy Alcohol consumption of more than two drinks per day Other problems related to lifestyle Anxiety and depression Dysthymic disorder Recurrent seizures (HCC) Other forms of epilepsy and recurrent seizures without mention of intractable epilepsy Iron deficiency anemia secondary to inadequate dietary iron intake Appetite loss Anorexia Severe protein-calorie malnutrition (HCC) Other severe protein-calorie malnutrition Iron deficiency anemia Iron deficiency anemia, unspecified Anxiety and depression Dysthymic disorder Pre-op evaluation- Primary Preoperative examination, unspecified Seizures (HCC) Other convulsions Iron deficiency anemia secondary to inadequate dietary iron intake Anxiety and depression Dysthymic disorder Inflammation of colonic mucosa Other and unspecified noninfectious gastroenteritis and colitis Failure to thrive in adult Adult failure to thrive Pre-op evaluation- Primary Preoperative examination, unspecified Iron deficiency anemia, unspecified iron deficiency anemia type IFG (impaired fasting glucose) Impaired fasting glucose Anemia, unspecified type Seizures (HCC) Other convulsions Inflammation of colonic mucosa Other and unspecified noninfectious gastroenteritis and colitis Anxiety and depression Dysthymic disorder BMI < 18.5 Abdominal pain- Primary Abdominal pain, unspecified site Adenocarcinoma of colon (HCC) Malignant neoplasm of colon, unspecified site Acute right lower quadrant pain Abdominal pain, right lower quadrant Hypokalemia Hypopotassemia Cancer related pain Neoplasm related pain (acute) (chronic) Malignant neoplasm of colon, unspecified part of colon (HCC) Acute abdominal pain Abdominal pain, unspecified site Colon cancer (HCC) Malignant neoplasm of colon, unspecified site Epilepsy (HCC) Unspecified epilepsy without mention of intractable epilepsy Palliative care by specialist Cancer related pain Neoplasm related pain (acute) (chronic) RUQ pain- Primary Abdominal pain, right upper quadrant Muscle spasm Spasm of muscle Knee buckling, right Malignant neoplasm of cecum (HCC) Malignant neoplasm of cecum 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, without mention of intractable epilepsy Alcohol consumption of more than two drinks per day Other problems related to lifestyle Anxiety and depression Dysthymic disorder Recurrent seizures (HCC) Other forms of epilepsy and recurrent seizures without mention of intractable epilepsy Iron deficiency anemia secondary to inadequate dietary iron intake Appetite loss Anorexia Severe protein-calorie malnutrition (HCC) Other severe protein-calorie malnutrition Iron deficiency anemia Iron deficiency anemia, unspecified Anxiety and depression Dysthymic disorder Pre-op evaluation- Primary Preoperative examination, unspecified Seizures (HCC) Other convulsions Iron deficiency anemia secondary to inadequate dietary iron intake Anxiety and depression Dysthymic disorder Inflammation of colonic mucosa Other and unspecified noninfectious gastroenteritis and colitis Failure to thrive in adult Adult failure to thrive Pre-op evaluation- Primary Preoperative examination, unspecified Iron deficiency anemia, unspecified iron deficiency anemia type IFG (impaired fasting glucose) Impaired fasting glucose Anemia, unspecified type Seizures (HCC) Other convulsions Inflammation of colonic mucosa Other and unspecified noninfectious gastroenteritis and colitis Anxiety and depression Dysthymic disorder BMI < 18.5 Abdominal pain- Primary Abdominal pain, unspecified site Adenocarcinoma of colon (HCC) Malignant neoplasm of colon, unspecified site Acute right lower quadrant pain Abdominal pain, right lower quadrant Hypokalemia Hypopotassemia Cancer related pain Neoplasm related pain (acute) (chronic) Malignant neoplasm of colon, unspecified part of colon (HCC) Acute abdominal pain Abdominal pain, unspecified site Colon cancer (HCC) Malignant neoplasm of colon, unspecified site Epilepsy (HCC) Unspecified epilepsy without mention of intractable epilepsy Palliative care by specialist Cancer related pain Neoplasm related pain (acute) (chronic) Palliative care by specialist- Primary Cancer related pain Neoplasm related pain (acute) (chronic) Severe protein-calorie malnutrition (HCC) Other severe protein-calorie malnutrition Nonintractable epilepsy without status epilepticus, unspecified epilepsy type (HCC) Seizures (HCC) Other convulsions Muscular deconditioning Muscular wasting and disuse atrophy, not elsewhere classified Failure to thrive in adult Adult failure to thrive Adenocarcinoma of cecum (HCC) Malignant neoplasm of cecum Malignant neoplasm of colon, unspecified part of colon (HCC) Opioid-induced constipation Major depressive disorder, recurrent, in partial remission Major depressive disorder, recurrent episode, in partial or unspecified remission 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, without mention of intractable epilepsy Alcohol consumption of more than two drinks per day Other problems related to lifestyle Anxiety and depression Dysthymic disorder Recurrent seizures (HCC) Other forms of epilepsy and recurrent seizures without mention of intractable epilepsy Iron deficiency anemia secondary to inadequate dietary iron intake Appetite loss Anorexia Severe protein-calorie malnutrition (HCC) Other severe protein-calorie malnutrition Iron deficiency anemia Iron deficiency anemia, unspecified Anxiety and depression Dysthymic disorder Pre-op evaluation- Primary Preoperative examination, unspecified Seizures (HCC) Other convulsions Iron deficiency anemia secondary to inadequate dietary iron intake Anxiety and depression Dysthymic disorder Inflammation of colonic mucosa Other and unspecified noninfectious gastroenteritis and colitis Failure to thrive in adult Adult failure to thrive Pre-op evaluation- Primary Preoperative examination, unspecified Iron deficiency anemia, unspecified iron deficiency anemia type IFG (impaired fasting glucose) Impaired fasting glucose Anemia, unspecified type Seizures (HCC) Other convulsions Inflammation of colonic mucosa Other and unspecified noninfectious gastroenteritis and colitis Anxiety and depression Dysthymic disorder BMI < 18.5 Abdominal pain- Primary Abdominal pain, unspecified site Adenocarcinoma of colon (HCC) Malignant neoplasm of colon, unspecified site Acute right lower quadrant pain Abdominal pain, right lower quadrant Hypokalemia Hypopotassemia Cancer related pain Neoplasm related pain (acute) (chronic) Malignant neoplasm of colon, unspecified part of colon (HCC) Acute abdominal pain Abdominal pain, unspecified site Colon cancer (HCC) Malignant neoplasm of colon, unspecified site Epilepsy (HCC) Unspecified epilepsy without mention of intractable epilepsy Palliative care by specialist Cancer related pain Neoplasm related pain (acute) (chronic) Adenocarcinoma of cecum (HCC)- Primary Malignant neoplasm of cecum Adenocarcinoma of cecum (HCC) Mal[facility]um 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, without mention of intractable epilepsy Alcohol consumption of more than two drinks per day Other problems related to lifestyle Anxiety and depression Dysthymic disorder Recurrent seizures (HCC) Other forms of epilepsy and recurrent seizures without mention of intractable epilepsy Iron deficiency anemia secondary to inadequate dietary iron intake Appetite loss Anorexia Severe protein-calorie malnutrition (HCC) Other severe protein-calorie malnutrition Iron deficiency anemia Iron deficiency anemia, unspecified Anxiety and depression Dysthymic disorder Pre-op evaluation- Primary Preoperative examination, unspecified Seizures (HCC) Other convulsions Iron deficiency anemia secondary to inadequate dietary iron intake Anxiety and depression Dysthymic disorder Inflammation of colonic mucosa Other and unspecified noninfectious gastroenteritis and colitis Failure to thrive in adult Adult failure to thrive Pre-op evaluation- Primary Preoperative examination, unspecified Iron deficiency anemia, unspecified iron deficiency anemia type IFG (impaired fasting glucose) Impaired fasting glucose Anemia, unspecified type Seizures (HCC) Other convulsions Inflammation of colonic mucosa Other and unspecified noninfectious gastroenteritis and colitis Anxiety and depression Dysthymic disorder BMI < 18.5 Abdominal pain- Primary Abdominal pain, unspecified site Adenocarcinoma of colon (HCC) Malignant neoplasm of colon, unspecified site Acute right lower quadrant pain Abdominal pain, right lower quadrant Hypokalemia Hypopotassemia Cancer related pain Neoplasm related pain (acute) (chronic) Malignant neoplasm of colon, unspecified part of colon (HCC) Acute abdominal pain Abdominal pain, unspecified site Colon cancer (HCC) Malignant neoplasm of colon, unspecified site Epilepsy (HCC) Unspecified epilepsy without mention of intractable epilepsy Palliative care by specialist Cancer related pain Neoplasm related pain (acute) (chronic) Adenocarcinoma of cecum (HCC)- Primary Malignant neoplasm of cecum Adenocarcinoma of cecum (HCC) Malignant neoplasm of cecum documented in this encounter [facility] note* Diagnosis 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, without mention of intractable epilepsy Alcohol consumption of more than two drinks per day Other problems related to lifestyle Anxiety and depression Dysthymic disorder Recurrent seizures (HCC) Other forms of epilepsy and recurrent seizures without mention of intractable epilepsy Iron deficiency anemia secondary to inadequate dietary iron intake Appetite loss Anorexia Severe protein-calorie malnutrition (HCC) Other severe protein-calorie malnutrition Iron deficiency anemia Iron deficiency anemia, unspecified Anxiety and depression Dysthymic disorder Pre-op evaluation- Primary Preoperative examination, unspecified Seizures (HCC) Other convulsions Iron deficiency anemia secondary to inadequate dietary iron intake Anxiety and depression Dysthymic disorder Inflammation of colonic mucosa Other and unspecified noninfectious gastroenteritis and colitis Failure to thrive in adult Adult failure to thrive Pre-op evaluation- Primary Preoperative examination, unspecified Iron deficiency anemia, unspecified iron deficiency anemia type IFG (impaired fasting glucose) Impaired fasting glucose Anemia, unspecified type Seizures (HCC) Other convulsions Inflammation of colonic mucosa Other and unspecified noninfectious gastroenteritis and colitis Anxiety and depression Dysthymic disorder BMI < 18.5 Abdominal pain- Primary Abdominal pain, unspecified site Adenocarcinoma of colon (HCC) Malignant neoplasm of colon, unspecified site Acute right lower quadrant pain Abdominal pain, right lower quadrant Hypokalemia Hypopotassemia Cancer related pain Neoplasm related pain (acute) (chronic) Malignant neoplasm of colon, unspecified part of colon (HCC) Acute abdominal pain Abdominal pain, unspecified site Colon cancer (HCC) Malignant neoplasm of colon, unspecified site Epilepsy (HCC) Unspecified epilepsy without mention of intractable epilepsy Palliative care by specialist Cancer related pain Neoplasm related pain (acute) (chronic) Encounter for education- Primary Counseling NOS Adenocarcinoma of cecum (HCC) Malignant neoplasm of cecum Adenocarcinoma of cecum (HCC) Malignant neoplasm of cecum documented in this encounter [facility] note* Diagnosis 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, without mention of intractable epilepsy Alcohol consumption of more than two drinks per day Other problems related to lifestyle Anxiety and depression Dysthymic disorder Recurrent seizures (HCC) Other forms of epilepsy and recurrent seizures without mention of intractable epilepsy Iron deficiency anemia secondary to inadequate dietary iron intake Appetite loss Anorexia Severe protein-calorie malnutrition (HCC) Other severe protein-calorie malnutrition Iron deficiency anemia Iron deficiency anemia, unspecified Anxiety and depression Dysthymic disorder Pre-op evaluation- Primary Preoperative examination, unspecified Seizures (HCC) Other convulsions Iron deficiency anemia secondary to inadequate dietary iron intake Anxiety and depression Dysthymic disorder Inflammation of colonic mucosa Other and unspecified noninfectious gastroenteritis and colitis Failure to thrive in adult Adult failure to thrive Pre-op evaluation- Primary Preoperative examination, unspecified Iron deficiency anemia, unspecified iron deficiency anemia type IFG (impaired fasting glucose) Impaired fasting glucose Anemia, unspecified type Seizures (HCC) Other convulsions Inflammation of colonic mucosa Other and unspecified noninfectious gastroenteritis and colitis Anxiety and depression Dysthymic disorder BMI < 18.5 Abdominal pain- Primary Abdominal pain, unspecified site Adenocarcinoma of colon (HCC) Malignant neoplasm of colon, unspecified site Acute right lower quadrant pain Abdominal pain, right lower quadrant Hypokalemia Hypopotassemia Cancer related pain Neoplasm related pain (acute) (chronic) Malignant neoplasm of colon, unspecified part of colon (HCC) Acute abdominal pain Abdominal pain, unspecified site Colon cancer (HCC) Malignant neoplasm of colon, unspecified site Epilepsy (HCC) Unspecified epilepsy without mention of intractable epilepsy Palliative care by specialist Cancer related pain Neoplasm related pain (acute) (chronic) Adenocarcinoma of cecum (HCC)- Primary Malignant neoplasm of cecum Adenocarcinoma of cecum (HCC) Malignant neoplasm of cecum Adenocarcinoma of cecum (HCC) Malignant neoplasm of cecum 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, without mention of intractable epilepsy Alcohol consumption of more than two drinks per day Other problems related to lifestyle Anxiety and depression Dysthymic disorder Recurrent seizures (HCC) Other forms of epilepsy and recurrent seizures without mention of intractable epilepsy Iron deficiency anemia secondary to inadequate dietary iron intake Appetite loss Anorexia Severe protein-calorie malnutrition (HCC) Other severe protein-calorie malnutrition Iron deficiency anemia Iron deficiency anemia, unspecified Anxiety and depression Dysthymic disorder Pre-op evaluation- Primary Preoperative examination, unspecified Seizures (HCC) Other convulsions Iron deficiency anemia secondary to inadequate dietary iron intake Anxiety and depression Dysthymic disorder Inflammation of colonic mucosa Other and unspecified noninfectious gastroenteritis and colitis Failure to thrive in adult Adult failure to thrive Pre-op evaluation- Primary Preoperative examination, unspecified Iron deficiency anemia, unspecified iron deficiency anemia type IFG (impaired fasting glucose) Impaired fasting glucose Anemia, unspecified type Seizures (HCC) Other convulsions Inflammation of colonic mucosa Other and unspecified noninfectious gastroenteritis and colitis Anxiety and depression Dysthymic disorder BMI < 18.5 Abdominal pain- Primary Abdominal pain, unspecified site Adenocarcinoma of colon (HCC) Malignant neoplasm of colon, unspecified site Acute right lower quadrant pain Abdominal pain, right lower quadrant Hypokalemia Hypopotassemia Cancer related pain Neoplasm related pain (acute) (chronic) Malignant neoplasm of colon, unspecified part of colon (HCC) Acute abdominal pain Abdominal pain, unspecified site Colon cancer (HCC) Malignant neoplasm of colon, unspecified site Epilepsy (HCC) Unspecified epilepsy without mention of intractable epilepsy Palliative care by specialist Cancer related pain Neoplasm related pain (acute) (chronic) Malignant neoplasm of cecum (HCC)- Primary Malignant neoplasm of cecum RLQ abdominal pain Abdominal pain, right lower quadrant Severe protein-calorie malnutrition (HCC) Other severe protein-calorie malnutrition 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, without mention of intractable epilepsy Alcohol consumption of more than two drinks per day Other problems related to lifestyle Anxiety and depression Dysthymic disorder Recurrent seizures (HCC) Other forms of epilepsy and recurrent seizures without mention of intractable epilepsy Iron deficiency anemia secondary to inadequate dietary iron intake Appetite loss Anorexia Severe protein-calorie malnutrition (HCC) Other severe protein-calorie malnutrition Iron deficiency anemia Iron deficiency anemia, unspecified Anxiety and depression Dysthymic disorder Pre-op evaluation- Primary Preoperative examination, unspecified Seizures (HCC) Other convulsions Iron deficiency anemia secondary to inadequate dietary iron intake Anxiety and depression Dysthymic disorder Inflammation of colonic mucosa Other and unspecified noninfectious gastroenteritis and colitis Failure to thrive in adult Adult failure to thrive Pre-op evaluation- Primary Preoperative examination, unspecified Iron deficiency anemia, unspecified iron deficiency anemia type IFG (impaired fasting glucose) Impaired fasting glucose Anemia, unspecified type Seizures (HCC) Other convulsions Inflammation of colonic mucosa Other and unspecified noninfectious gastroenteritis and colitis Anxiety and depression Dysthymic disorder BMI < 18.5 Abdominal pain- Primary Abdominal pain, unspecified site Adenocarcinoma of colon (HCC) Malignant neoplasm of colon, unspecified site Acute right lower quadrant pain Abdominal pain, right lower quadrant Hypokalemia Hypopotassemia Cancer related pain Neoplasm related pain (acute) (chronic) Malignant neoplasm of colon, unspecified part of colon (HCC) Acute abdominal pain Abdominal pain, unspecified site Colon cancer (HCC) Malignant neoplasm of colon, unspecified site Epilepsy (HCC) Unspecified epilepsy without mention of intractable epilepsy Palliative care by specialist Cancer related pain Neoplasm related pain (acute) (chronic) Malignant neoplasm of cecum (HCC)- Primary Malignant neoplasm of cecum RLQ abdominal pain Abdominal pain, right lower quadrant 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, without mention of intractable epilepsy Alcohol consumption of more than two drinks per day Other problems related to lifestyle Anxiety and depression Dysthymic disorder Recurrent seizures (HCC) Other forms of epilepsy and recurrent seizures without mention of intractable epilepsy Iron deficiency anemia secondary to inadequate dietary iron intake Appetite loss Anorexia Severe protein-calorie malnutrition (HCC) Other severe protein-calorie malnutrition Iron deficiency anemia Iron deficiency anemia, unspecified Anxiety and depression Dysthymic disorder Pre-op evaluation- Primary Preoperative examination, unspecified Seizures (HCC) Other convulsions Iron deficiency anemia secondary to inadequate dietary iron intake Anxiety and depression Dysthymic disorder Inflammation of colonic mucosa Other and unspecified noninfectious gastroenteritis and colitis Failure to thrive in adult Adult failure to thrive Pre-op evaluation- Primary Preoperative examination, unspecified Iron deficiency anemia, unspecified iron deficiency anemia type IFG (impaired fasting glucose) Impaired fasting glucose Anemia, unspecified type Seizures (HCC) Other convulsions Inflammation of colonic mucosa Other and unspecified noninfectious gastroenteritis and colitis Anxiety and depression Dysthymic disorder BMI < 18.5 Abdominal pain- Primary Abdominal pain, unspecified site Adenocarcinoma of colon (HCC) Malignant neoplasm of colon, unspecified site Acute right lower quadrant pain Abdominal pain, right lower quadrant Hypokalemia Hypopotassemia Cancer related pain Neoplasm related pain (acute) (chronic) Malignant neoplasm of colon, unspecified part of colon (HCC) Acute abdominal pain Abdominal pain, unspecified site Colon cancer (HCC) Malignant neoplasm of colon, unspecified site Epilepsy (HCC) Unspecified epilepsy without mention of intractable epilepsy Palliative care by specialist Cancer related pain Neoplasm related pain (acute) (chronic) Adenocarcinoma of cecum (HCC) Mal[facility]um 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, without mention of intractable epilepsy Alcohol consumption of more than two drinks per day Other problems related to lifestyle Anxiety and depression Dysthymic disorder Recurrent seizures (HCC) Other forms of epilepsy and recurrent seizures without mention of intractable epilepsy Iron deficiency anemia secondary to inadequate dietary iron intake Appetite loss Anorexia Severe protein-calorie malnutrition (HCC) Other severe protein-calorie malnutrition Iron deficiency anemia Iron deficiency anemia, unspecified Anxiety and depression Dysthymic disorder Pre-op evaluation- Primary Preoperative examination, unspecified Seizures (HCC) Other convulsions Iron deficiency anemia secondary to inadequate dietary iron intake Anxiety and depression Dysthymic disorder Inflammation of colonic mucosa Other and unspecified noninfectious gastroenteritis and colitis Failure to thrive in adult Adult failure to thrive Pre-op evaluation- Primary Preoperative examination, unspecified Iron deficiency anemia, unspecified iron deficiency anemia type IFG (impaired fasting glucose) Impaired fasting glucose Anemia, unspecified type Seizures (HCC) Other convulsions Inflammation of colonic mucosa Other and unspecified noninfectious gastroenteritis and colitis Anxiety and depression Dysthymic disorder BMI < 18.5 Abdominal pain- Primary Abdominal pain, unspecified site Adenocarcinoma of colon (HCC) Malignant neoplasm of colon, unspecified site Acute right lower quadrant pain Abdominal pain, right lower quadrant Hypokalemia Hypopotassemia Cancer related pain Neoplasm related pain (acute) (chronic) Malignant neoplasm of colon, unspecified part of colon (HCC) Acute abdominal pain Abdominal pain, unspecified site Colon cancer (HCC) Malignant neoplasm of colon, unspecified site Epilepsy (HCC) Unspecified epilepsy without mention of intractable epilepsy Palliative care by specialist Cancer related pain Neoplasm related pain (acute) (chronic) Adenocarcinoma of cecum (HCC)- Primary Malignant neoplasm of cecum documented in this encounter [facility] note* Diagnosis 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, without mention of intractable epilepsy Alcohol consumption of more than two drinks per day Other problems related to lifestyle Anxiety and depression Dysthymic disorder Recurrent seizures (HCC) Other forms of epilepsy and recurrent seizures without mention of intractable epilepsy Iron deficiency anemia secondary to inadequate dietary iron intake Appetite loss Anorexia Severe protein-calorie malnutrition (HCC) Other severe protein-calorie malnutrition Iron deficiency anemia Iron deficiency anemia, unspecified Anxiety and depression Dysthymic disorder Pre-op evaluation- Primary Preoperative examination, unspecified Seizures (HCC) Other convulsions Iron deficiency anemia secondary to inadequate dietary iron intake Anxiety and depression Dysthymic disorder Inflammation of colonic mucosa Other and unspecified noninfectious gastroenteritis and colitis Failure to thrive in adult Adult failure to thrive Pre-op evaluation- Primary Preoperative examination, unspecified Iron deficiency anemia, unspecified iron deficiency anemia type IFG (impaired fasting glucose) Impaired fasting glucose Anemia, unspecified type Seizures (HCC) Other convulsions Inflammation of colonic mucosa Other and unspecified noninfectious gastroenteritis and colitis Anxiety and depression Dysthymic disorder BMI < 18.5 Abdominal pain- Primary Abdominal pain, unspecified site Adenocarcinoma of colon (HCC) Malignant neoplasm of colon, unspecified site Acute right lower quadrant pain Abdominal pain, right lower quadrant Hypokalemia Hypopotassemia Cancer related pain Neoplasm related pain (acute) (chronic) Malignant neoplasm of colon, unspecified part of colon (HCC) Acute abdominal pain Abdominal pain, unspecified site Colon cancer (HCC) Malignant neoplasm of colon, unspecified site Epilepsy (HCC) Unspecified epilepsy without mention of intractable epilepsy Palliative care by specialist Cancer related pain Neoplasm related pain (acute) (chronic) Adenocarcinoma of cecum (HCC)- Primary Malignant neoplasm of cecum 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, without mention of intractable epilepsy Alcohol consumption of more than two drinks per day Other problems related to lifestyle Anxiety and depression Dysthymic disorder Recurrent seizures (HCC) Other forms of epilepsy and recurrent seizures without mention of intractable epilepsy Iron deficiency anemia secondary to inadequate dietary iron intake Appetite loss Anorexia Severe protein-calorie malnutrition (HCC) Other severe protein-calorie malnutrition Iron deficiency anemia Iron deficiency anemia, unspecified Anxiety and depression Dysthymic disorder Pre-op evaluation- Primary Preoperative examination, unspecified Seizures (HCC) Other convulsions Iron deficiency anemia secondary to inadequate dietary iron intake Anxiety and depression Dysthymic disorder Inflammation of colonic mucosa Other and unspecified noninfectious gastroenteritis and colitis Failure to thrive in adult Adult failure to thrive Pre-op evaluation- Primary Preoperative examination, unspecified Iron deficiency anemia, unspecified iron deficiency anemia type IFG (impaired fasting glucose) Impaired fasting glucose Anemia, unspecified type Seizures (HCC) Other convulsions Inflammation of colonic mucosa Other and unspecified noninfectious gastroenteritis and colitis Anxiety and depression Dysthymic disorder BMI < 18.5 Abdominal pain- Primary Abdominal pain, unspecified site Adenocarcinoma of colon (HCC) Malignant neoplasm of colon, unspecified site Acute right lower quadrant pain Abdominal pain, right lower quadrant Hypokalemia Hypopotassemia Cancer related pain Neoplasm related pain (acute) (chronic) Malignant neoplasm of colon, unspecified part of colon (HCC) Acute abdominal pain Abdominal pain, unspecified site Colon cancer (HCC) Malignant neoplasm of colon, unspecified site Epilepsy (HCC) Unspecified epilepsy without mention of intractable epilepsy Palliative care by specialist Cancer related pain Neoplasm related pain (acute) (chronic) Adenocarcinoma of cecum (HCC)- Primary Malignant neoplasm of cecum 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, without mention of intractable epilepsy Alcohol consumption of more than two drinks per day Other problems related to lifestyle Anxiety and depression Dysthymic disorder Recurrent seizures (HCC) Other forms of epilepsy and recurrent seizures without mention of intractable epilepsy Iron deficiency anemia secondary to inadequate dietary iron intake Appetite loss Anorexia Severe protein-calorie malnutrition (HCC) Other severe protein-calorie malnutrition Iron deficiency anemia Iron deficiency anemia, unspecified Anxiety and depression Dysthymic disorder Pre-op evaluation- Primary Preoperative examination, unspecified Seizures (HCC) Other convulsions Iron deficiency anemia secondary to inadequate dietary iron intake Anxiety and depression Dysthymic disorder Inflammation of colonic mucosa Other and unspecified noninfectious gastroenteritis and colitis Failure to thrive in adult Adult failure to thrive Pre-op evaluation- Primary Preoperative examination, unspecified Iron deficiency anemia, unspecified iron deficiency anemia type IFG (impaired fasting glucose) Impaired fasting glucose Anemia, unspecified type Seizures (HCC) Other convulsions Inflammation of colonic mucosa Other and unspecified noninfectious gastroenteritis and colitis Anxiety and depression Dysthymic disorder BMI < 18.5 Abdominal pain- Primary Abdominal pain, unspecified site Adenocarcinoma of colon (HCC) Malignant neoplasm of colon, unspecified site Acute right lower quadrant pain Abdominal pain, right lower quadrant Hypokalemia Hypopotassemia Cancer related pain Neoplasm related pain (acute) (chronic) Malignant neoplasm of colon, unspecified part of colon (HCC) Acute abdominal pain Abdominal pain, unspecified site Colon cancer (HCC) Malignant neoplasm of colon, unspecified site Epilepsy (HCC) Unspecified epilepsy without mention of intractable epilepsy Palliative care by specialist Cancer related pain Neoplasm related pain (acute) (chronic) Malignant neoplasm of cecum (HCC) Malignant neoplasm of cecum RLQ abdominal pain Abdominal pain, right lower quadrant documented in this encounter [facility] note* Diagnosis 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, without mention of intractable epilepsy Alcohol consumption of more than two drinks per day Other problems related to lifestyle Anxiety and depression Dysthymic disorder Recurrent seizures (HCC) Other forms of epilepsy and recurrent seizures without mention of intractable epilepsy Iron deficiency anemia secondary to inadequate dietary iron intake Appetite loss Anorexia Severe protein-calorie malnutrition (HCC) Other severe protein-calorie malnutrition Iron deficiency anemia Iron deficiency anemia, unspecified Anxiety and depression Dysthymic disorder Pre-op evaluation- Primary Preoperative examination, unspecified Seizures (HCC) Other convulsions Iron deficiency anemia secondary to inadequate dietary iron intake Anxiety and depression Dysthymic disorder Inflammation of colonic mucosa Other and unspecified noninfectious gastroenteritis and colitis Failure to thrive in adult Adult failure to thrive Pre-op evaluation- Primary Preoperative examination, unspecified Iron deficiency anemia, unspecified iron deficiency anemia type IFG (impaired fasting glucose) Impaired fasting glucose Anemia, unspecified type Seizures (HCC) Other convulsions Inflammation of colonic mucosa Other and unspecified noninfectious gastroenteritis and colitis Anxiety and depression Dysthymic disorder BMI < 18.5 Abdominal pain- Primary Abdominal pain, unspecified site Adenocarcinoma of colon (HCC) Malignant neoplasm of colon, unspecified site Acute right lower quadrant pain Abdominal pain, right lower quadrant Hypokalemia Hypopotassemia Cancer related pain Neoplasm related pain (acute) (chronic) Malignant neoplasm of colon, unspecified part of colon (HCC) Acute abdominal pain Abdominal pain, unspecified site Colon cancer (HCC) Malignant neoplasm of colon, unspecified site Epilepsy (HCC) Unspecified epilepsy without mention of intractable epilepsy Palliative care by specialist Cancer related pain Neoplasm related pain (acute) (chronic) Malignant neoplasm of cecum (HCC) Malignant neoplasm of cecum RLQ abdominal pain Abdominal pain, right lower quadrant documented in this encounter [facility] note* Diagnosis 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, without mention of intractable epilepsy Alcohol consumption of more than two drinks per day Other problems related to lifestyle Anxiety and depression Dysthymic disorder Recurrent seizures (HCC) Other forms of epilepsy and recurrent seizures without mention of intractable epilepsy Iron deficiency anemia secondary to inadequate dietary iron intake Appetite loss Anorexia Severe protein-calorie malnutrition (HCC) Other severe protein-calorie malnutrition Iron deficiency anemia Iron deficiency anemia, unspecified Anxiety and depression Dysthymic disorder Pre-op evaluation- Primary Preoperative examination, unspecified Seizures (HCC) Other convulsions Iron deficiency anemia secondary to inadequate dietary iron intake Anxiety and depression Dysthymic disorder Inflammation of colonic mucosa Other and unspecified noninfectious gastroenteritis and colitis Failure to thrive in adult Adult failure to thrive Pre-op evaluation- Primary Preoperative examination, unspecified Iron deficiency anemia, unspecified iron deficiency anemia type IFG (impaired fasting glucose) Impaired fasting glucose Anemia, unspecified type Seizures (HCC) Other convulsions Inflammation of colonic mucosa Other and unspecified noninfectious gastroenteritis and colitis Anxiety and depression Dysthymic disorder BMI < 18.5 Abdominal pain- Primary Abdominal pain, unspecified site Adenocarcinoma of colon (HCC) Malignant neoplasm of colon, unspecified site Acute right lower quadrant pain Abdominal pain, right lower quadrant Hypokalemia Hypopotassemia Cancer related pain Neoplasm related pain (acute) (chronic) Malignant neoplasm of colon, unspecified part of colon (HCC) Acute abdominal pain Abdominal pain, unspecified site Colon cancer (HCC) Malignant neoplasm of colon, unspecified site Epilepsy (HCC) Unspecified epilepsy without mention of intractable epilepsy Palliative care by specialist Cancer related pain Neoplasm related pain (acute) (chronic) Adenocarcinoma of cecum (HCC)- Primary Malignant neoplasm of [facility]ecum 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, without mention of intractable epilepsy Alcohol consumption of more than two drinks per day Other problems related to lifestyle Anxiety and depression Dysthymic disorder Recurrent seizures (HCC) Other forms of epilepsy and recurrent seizures without mention of intractable epilepsy Iron deficiency anemia secondary to inadequate dietary iron intake Appetite loss Anorexia Severe protein-calorie malnutrition (HCC) Other severe protein-calorie malnutrition Iron deficiency anemia Iron deficiency anemia, unspecified Anxiety and depression Dysthymic disorder Pre-op evaluation- Primary Preoperative examination, unspecified Seizures (HCC) Other convulsions Iron deficiency anemia secondary to inadequate dietary iron intake Anxiety and depression Dysthymic disorder Inflammation of colonic mucosa Other and unspecified noninfectious gastroenteritis and colitis Failure to thrive in adult Adult failure to thrive Pre-op evaluation- Primary Preoperative examination, unspecified Iron deficiency anemia, unspecified iron deficiency anemia type IFG (impaired fasting glucose) Impaired fasting glucose Anemia, unspecified type Seizures (HCC) Other convulsions Inflammation of colonic mucosa Other and unspecified noninfectious gastroenteritis and colitis Anxiety and depression Dysthymic disorder BMI < 18.5 Abdominal pain- Primary Abdominal pain, unspecified site Adenocarcinoma of colon (HCC) Malignant neoplasm of colon, unspecified site Acute right lower quadrant pain Abdominal pain, right lower quadrant Hypokalemia Hypopotassemia Cancer related pain Neoplasm related pain (acute) (chronic) Malignant neoplasm of colon, unspecified part of colon (HCC) Acute abdominal pain Abdominal pain, unspecified site Colon cancer (HCC) Malignant neoplasm of colon, unspecified site Epilepsy (HCC) Unspecified epilepsy without mention of intractable epilepsy Palliative care by specialist Cancer related pain Neoplasm related pain (acute) (chronic) Adenocarcinoma of cecum (HCC)- Primary Malignant neoplasm of cecum 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, without mention of intractable epilepsy Alcohol consumption of more than two drinks per day Other problems related to lifestyle Anxiety and depression Dysthymic disorder Recurrent seizures (HCC) Other forms of epilepsy and recurrent seizures without mention of intractable epilepsy Iron deficiency anemia secondary to inadequate dietary iron intake Appetite loss Anorexia Severe protein-calorie malnutrition (HCC) Other severe protein-calorie malnutrition Iron deficiency anemia Iron deficiency anemia, unspecified Anxiety and depression Dysthymic disorder Pre-op evaluation- Primary Preoperative examination, unspecified Seizures (HCC) Other convulsions Iron deficiency anemia secondary to inadequate dietary iron intake Anxiety and depression Dysthymic disorder Inflammation of colonic mucosa Other and unspecified noninfectious gastroenteritis and colitis Failure to thrive in adult Adult failure to thrive Pre-op evaluation- Primary Preoperative examination, unspecified Iron deficiency anemia, unspecified iron deficiency anemia type IFG (impaired fasting glucose) Impaired fasting glucose Anemia, unspecified type Seizures (HCC) Other convulsions Inflammation of colonic mucosa Other and unspecified noninfectious gastroenteritis and colitis Anxiety and depression Dysthymic disorder BMI < 18.5 Abdominal pain- Primary Abdominal pain, unspecified site Adenocarcinoma of colon (HCC) Malignant neoplasm of colon, unspecified site Acute right lower quadrant pain Abdominal pain, right lower quadrant Hypokalemia Hypopotassemia Cancer related pain Neoplasm related pain (acute) (chronic) Malignant neoplasm of colon, unspecified part of colon (HCC) Acute abdominal pain Abdominal pain, unspecified site Colon cancer (HCC) Malignant neoplasm of colon, unspecified site Epilepsy (HCC) Unspecified epilepsy without mention of intractable epilepsy Palliative care by specialist Cancer related pain Neoplasm related pain (acute) (chronic) Adenocarcinoma of cecum (HCC)- Primary Malignant neoplasm of cecum 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, without mention of intractable epilepsy Alcohol consumption of more than two drinks per day Other problems related to lifestyle Anxiety and depression Dysthymic disorder Recurrent seizures (HCC) Other forms of epilepsy and recurrent seizures without mention of intractable epilepsy Iron deficiency anemia secondary to inadequate dietary iron intake Appetite loss Anorexia Severe protein-calorie malnutrition (HCC) Other severe protein-calorie malnutrition Iron deficiency anemia Iron deficiency anemia, unspecified Anxiety and depression Dysthymic disorder Pre-op evaluation- Primary Preoperative examination, unspecified Seizures (HCC) Other convulsions Iron deficiency anemia secondary to inadequate dietary iron intake Anxiety and depression Dysthymic disorder Inflammation of colonic mucosa Other and unspecified noninfectious gastroenteritis and colitis Failure to thrive in adult Adult failure to thrive Pre-op evaluation- Primary Preoperative examination, unspecified Iron deficiency anemia, unspecified iron deficiency anemia type IFG (impaired fasting glucose) Impaired fasting glucose Anemia, unspecified type Seizures (HCC) Other convulsions Inflammation of colonic mucosa Other and unspecified noninfectious gastroenteritis and colitis Anxiety and depression Dysthymic disorder BMI < 18.5 Abdominal pain- Primary Abdominal pain, unspecified site Adenocarcinoma of colon (HCC) Malignant neoplasm of colon, unspecified site Acute right lower quadrant pain Abdominal pain, right lower quadrant Hypokalemia Hypopotassemia Cancer related pain Neoplasm related pain (acute) (chronic) Malignant neoplasm of colon, unspecified part of colon (HCC) Acute abdominal pain Abdominal pain, unspecified site Colon cancer (HCC) Malignant neoplasm of colon, unspecified site Epilepsy (HCC) Unspecified epilepsy without mention of intractable epilepsy Palliative care by specialist Cancer related pain Neoplasm related pain (acute) (chronic) Adenocarcinoma of cecum (HCC)- Primary Malignant neoplasm of cecum 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, without mention of intractable epilepsy Alcohol consumption of more than two drinks per day Other problems related to lifestyle Anxiety and depression Dysthymic disorder Recurrent seizures (HCC) Other forms of epilepsy and recurrent seizures without mention of intractable epilepsy Iron deficiency anemia secondary to inadequate dietary iron intake Appetite loss Anorexia Severe protein-calorie malnutrition (HCC) Other severe protein-calorie malnutrition Iron deficiency anemia Iron deficiency anemia, unspecified Anxiety and depression Dysthymic disorder Pre-op evaluation- Primary Preoperative examination, unspecified Seizures (HCC) Other convulsions Iron deficiency anemia secondary to inadequate dietary iron intake Anxiety and depression Dysthymic disorder Inflammation of colonic mucosa Other and unspecified noninfectious gastroenteritis and colitis Failure to thrive in adult Adult failure to thrive Pre-op evaluation- Primary Preoperative examination, unspecified Iron deficiency anemia, unspecified iron deficiency anemia type IFG (impaired fasting glucose) Impaired fasting glucose Anemia, unspecified type Seizures (HCC) Other convulsions Inflammation of colonic mucosa Other and unspecified noninfectious gastroenteritis and colitis Anxiety and depression Dysthymic disorder BMI < 18.5 Abdominal pain- Primary Abdominal pain, unspecified site Adenocarcinoma of colon (HCC) Malignant neoplasm of colon, unspecified site Acute right lower quadrant pain Abdominal pain, right lower quadrant Hypokalemia Hypopotassemia Cancer related pain Neoplasm related pain (acute) (chronic) Malignant neoplasm of colon, unspecified part of colon (HCC) Acute abdominal pain Abdominal pain, unspecified site Colon cancer (HCC) Malignant neoplasm of colon, unspecified site Epilepsy (HCC) Unspecified epilepsy without mention of intractable epilepsy Palliative care by specialist Cancer related pain Neoplasm related pain (acute) (chronic) Adenocarcinoma of cecum (HCC)- Primary Malignant neoplasm of cecum Metastasis to liver (HCC) Secondary malignant neoplasm of liver [facility] Author Annette Mendez [facility] Note Date/Time November 07, 2024 3: 29pm [facility] Medical Records Department [address] [place] [address] H&P Exam - Hospitalist 11/07/24 1514 MR#: [id number] Acct: [id number] Name: AUGUSTLAKESHASANGEETHA BANSAL Rep #:[id number] : 1960 64 From: Annette Mendez MD PCP: Aubrey Lopez Tana MECHANIC SENIOR-C Status:REG ER Location: ED HPI - General General Date of Admission: 11/07/24 Date of Service: 11/07/24 Chief Complaint: Abdominal pain HPI Narrative LAKESHA KOCH, is a 64-year-old female history of recurrent colon cancer, GERD, recent port placement and first dose of chemotherapy, anxiety who presented [facility] ED 11/07/2024 for abdominal pain. She has a history of 2 colon resections at [facility] and had port placed and just started chemotherapy with first infusion yesterday and at 3 AM she developed lower abdominal pain, nausea, and vomiting. No diarrhea. In the ED temp 97.4, heart rate 83 and blood pressure 125/59, respiratory rate 20 and pulse ox 99% on room air. CBC with a white blood cell count of 19.9, hemoglobin 10.5, CMP with potassium of 3 and glucose 145, BUN 15 and creatinine 0.58 with normal liver panel, lactic 2.2 and lipase of 29. She did have CT abdomen pelvis with findings suggestive of hepatic metastasis and/or small abscesses and recommendedclinical correlation, also showed findings suggestive of colitis of the transverse colon and descending colon. Patient given IV fluids and Zosyn, medications for pain control and hospitalist contacted for admission. Patient evaluated at bedside. She reports history as above and notes that she has had nausea, vomiting, diarrhea and abdominal pain more so in her lower abdomen sinceovernight, initially went to the out Patient [facility] and they sent her to the ED. Continues to have the pain in the lower abdomen, denies right upper quadrant or upper abdominal pain, denies any fevers at home, no cough, chest pain, shortness of breath. Does report she feels she has had a little bit of a hard time emptying her bladder. [facility] Medical History Seizure disorder Hypotension Marijuana abuse Alcohol dependence ETOH abuse IBS (irritable bowel syndrome) Anxiety Depression Seizure Home Medications ?Medication ?Instructions ?Recorded ?Last Taken ?Type alendronate 70 mg tablet 70 mg PO QWEEK [facility] 0 10/18/23 Unknown History buspirone 7.5 mg tablet 7.5 mg PO DAILY Mood 4 09/04/24 08:50 History sertraline 50 mg tablet 50 mg PO DAILY Mood 10/18/23 09/04/24 08:50 History acetaminophen 500 mg tablet 1,000 mg (2 x 500 mg) PO Q 8 #0 tabs 09/12/24 Unknown Rx gabapentin 100 mg capsule 100 mg PO QHS 30 days #30 ca ps 09/12/24 Unknown Rx hydromorphone 2 mg tablet 2 - 4 mg (1 - 2 x 2 mg) PO Q 4H PRN 09/12/24 Unknown Rx PRN PAIN 6-10 7 days #42 tabs hydroxyzine pamoate 25 mg capsule 50 mg (2 x 25 mg) PO TID PRN PRN 09/12/24 Unknown Rx Itching 30 days #90 caps lidocaine 5 % topical patch 2 patch topical DAILY 30 d ays #60 09/12/24 Unknown Rx ea methocarbamol 750 mg tablet 750 mg PO Q8 30 days #90 t abs 09/12/24 Unknown Rx ondansetron 4 mg disintegrating 4 mg PO Q8H PRN PRN Na usea 30 days 09/12/24 Unknown Rx tablet #90 tabs Allergy/AdvReac Type Severity Reaction Status Date / Time erythromycin base Allergy TONGUE Verified 11/07/24 11:22 PEELS Family History Sister Melanoma Father Prostate CA Surgical History History of placement of ureteral stent History of resection of small bowel History of right salpingo-oophorectomy History of lysis of adhesions History of exploratory laparotomy 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 Social History household members: none housing: apartment Smoking Status: Former smoker alcohol intake: former year quit: 2020 substance use type: marijuana ROS ROS Narrative General: Denies fever/chills HENT: Denies headache, denies stuffy nose, denies sore throat EYES: Denies changes in vision Resp: Denies cough, denies shortness of breath Cardiac: Denies chest pain GI: abd pain specifically in lower quadrants, diarrhea, n/v : Does feel she has had a little bit of a hard time emptying her bladder Extremity: Denies swelling MSK: Denies weakness Neuro: Denies any numbness/tingling Heme: Denies any bleeding or bruising Skin: Denies rashes Psychiatric: No complaints voiced Vital Signs Vital Signs Vital Signs: 11/07/24 11:18 11/07/24 14:20 Temperature 97.4 F L Temperature Source Temporal Pulse Rate 83 85 Respiratory Rate 20 H 16 Blood Pressure 125/59 H 114/60 Blood Pressure Mean 81 78 Pulse Ox 99 99 Oxygen Delivery Method Room Air Weight Weight: 39 kg Body Mass Index (BMI) 14.7 Physical Exam Narrative General: Alert, oriented HEENT: Atraumatic, normocephalic Eyes: Anicteric, normal conjunctiva, extraocular movements grossly intact Neck: Supple Respiratory: Clear to auscultation bilaterally, normal respiratory effort Cardiovascular: Regular rate and rhythm GI: Soft, some tenderness in the suprapubic and lower quadrants, no epigastric or right upper quadrant pain Extremities: No edema Musculoskeletal: Moving all extremities Neuro: No overt focal neurological deficits Skin: No rashes appreciated Psych: Cooperative Results Lab / Micro Data 11/07/24 12:25 11/07/24 12:25 Labs: Laboratory Results - last 24 hr 11/07/24 12:25: WBC 19.9 H, RBC 3.43 L, Hgb 10.5 L, Hct 30.3 L, MCV 88.3, MCH 30.6, MCHC 34.7, RDW Std Deviation 42.7, RDW Coeff of Yury 13.3, Plt Count 283, MPV 9.5, Immature Gran % (Auto) 0.600, Neut % (Auto) 90.3 H, Lymph % (Auto) 5.6 L, Campbell % (Auto) 3.3, Eos % (Auto) 0.0, Baso % (Auto) 0.2, Absolute Neuts (auto)18.0 H, Absolute Lymphs (auto) 1.12, Nucleated RBC % 0, Sodium 140, Potassium 3.0 L, Chloride 104, Carbon Dioxide 21.4, Anion Gap 14, BUN 15, Creatinine 0.58 L, Estim Creat Clear Calc 43.16 L, Est GFR (MDRD) Non-Af 100, BUN/Creatinine Ratio 24.9 H, Glucose 145 H, Lactic Acid 2.2 H*, Calcium 8.7, Total Bilirubin 0.19, AST 23, ALT 10, Alkaline Phosphatase 74, Total Protein 6.5, Albumin 3.8, Globulin 2.7, Albumin/Globulin Ratio 1.4, Lipase 29 Imaging Radiology Impression Abdomen/Pelvis CT 11/07/24 12:17 IMPRESSION: Findings suggestive of hepatic metastasis and/or small abscesses. Clinical correlation recommended. Status post right hemicolectomy. Findings suggestive of colitis of the transverse colon and descending colon. Small amount of free fluid is seen in the pelvis. Reading Location: [facility] Assessment & Plan Assessment/Plan (1) Abdominal pain: PLAN: Plan # Abdominal pain, nausea, vomiting suspect secondary to colitis -Colitis seen on CT scan -Elevated white blood cell count -IV fluids, Zosyn -Supportive care -Given her reports of additional diarrhea we will check stool studies if able - Transitional diet, advance as tolerated -UA pending # Hepatic lesions -More likely hepatic metastasis but cannot rule out abscesses given concern for infection -Liver function tests on CMP within normal limits -Patient on Zosyn -Will order MRI for better characterization as that would likely change treatment # Recurrent colon cancer -Following with the [facility] -Has Mediport and had her first chemotherapy yesterday -Will continue to follow with them on discharge #Hypokalemia -Replace -Repeat in the AM #Depression/anxiety -Continue home medications #DVT ppx: SCDs Annette Mendez MD Charges/Coding Visit Charges Inpatient E&M: 96440 Init Hosp L2 11/07/24 1529 <Electronically signed by Annette Mendez MD> Cosigner Signature (if applicable): CC: Dr. Annette Mendez MD; Freddie[place]ico [facility] MECHANIC SENIOR-C Beam~ Signed [facility] Work Phone: Hospital Discharge instructions Additional Instructions Keep your appointment to have CT scan of your abdomen pelvis performed today. Return for persistent vomiting, worsening pain, fever, or condition worsening)[facility] Work Phone: Hospital Discharge instructionsAdditional Instructions Continue your Zofran at home. Clear liquid diet and advance as tolerated. Drink plenty of oral fluids. Return with new or worsening symptoms.[facility] Work Phone: Patient's home Plan of care note* Visit Details Visit Type -SN SOC Discipline -Fci Problems Problem Description Start Date Status Goals Interve ntions Medication Education Disciplines: Skilled Services 01/11/2024 Active 1 goal linked to scheduled/documen claudia intervention 1 goal intervention scheduled/document ed in this visit Risk for skin breakdown Disciplines: Skilled Services 01/11/2024 Active 1 goal linked to scheduled/documen claudia intervention 1 goal intervention scheduled/document ed in this visit Physician Specific Parameters Disciplines: Skilled Services 01/11/2024 Active 1 goal linked to scheduled/documen claudia intervention 1 goal intervention scheduled/document ed in this visit Risk for Falls Disciplines: Skilled Services 01/11/2024 Active 1 goal linked to scheduled/documen claudia intervention 1 goal intervention scheduled/document ed in this visit Pain Disciplines: Skilled Services 01/11/2024 Active 1 goal linked to scheduled/documen claudia intervention 1 goal intervention scheduled/document ed in this visit Nutrition/Hydration Disciplines: Skilled Services 01/11/2024 Active 1 goal linked to scheduled/documen claudia intervention 1 goal intervention scheduled/document ed in this visit High Risk Medications Disciplines: Skilled Services 01/11/2024 Active 1 goal linked to scheduled/documen claudia intervention 2 goal interventions scheduled/document ed in this visit Discharge Disciplines: Skilled Services 01/11/2024 Active 1 goal linked to scheduled/documen claudia intervention 1 goal intervention scheduled/document ed in this visit Advance Directives Disciplines: Skilled Services 01/11/2024 Active 1 goal linked to scheduled/documen claudia intervention 1 goal intervention scheduled/document ed in this visit SN Integumentary/Wound s Disciplines: SN 01/11/2024 Active 1 goal linked to scheduled/documen claudia intervention 1 goal intervention scheduled/document ed in this visit SN Learning Assessment Disciplines: SN 01/11/2024 Active 1 goal linked to scheduled/documen claudia intervention 1 goal intervention scheduled/document ed in this visit SN Genitourinary disease process Disciplines: SN 01/11/2024 Active 1 goal linked to scheduled/documen claudia intervention 1 goal intervention scheduled/document ed in this visit SN Gastrointestinal Disciplines: SN 01/11/2024 Active 1 goal linked to scheduled/documen claudia intervention 1 goal intervention scheduled/document ed in this visit Goals Goal Associated Problem Outcome Goal Met? Visit Notes Patient/caregiver will demonstrate ability to obtain, store, identify and administer ordered medications, keep accurate medication list in home, and adhere to medication schedule Description: Patient/caregiver will demonstrate ability to obtain, store, identify and administer ordered medications, keep accurate medication list in home, and adhere to medication schedule by 01/26/24. Medication Education No Manage risk for skin breakdown Description: Patient/caregiver will verbalize and demonstrate understanding of the risks and measures to be taken to monitor and prevent skin breakdown by 01/26/24. Risk for skin breakdown No Patient to maintain parameters within physician-specified ranges throughout certification period Physician Specific Parameters No Manage Risk for falls Description: Patient/caregiver will verbalize knowledge of individualized fall prevention strategies by 01/25/24. Risk for Falls No Manage Pain Description: Patient/caregiver will verbalize knowledge and understanding of appropriate techniques to control pain, including pain medication. Patient will verbalize or demonstrate an acceptable level of pain as evidenced by a pain score of 0/10 and improvement in ability to perform activities of daily living to be achieved by 01/25/24 Pain No Manage Nutrition/Hydration Description: Patient/caregiver will verbalize/demonstrate knowledge of prescribed diet and/or healthy nutrition to be achieved by 01/26/24. Nutrition/Hydration No Patient/caregiver will teach back high risk medication side effect and precaution education Description: STG Patient/caregiver will verbalize understanding of high risk medication side effects and precautions to be achieved by 01/26/24. LTG Patient/caregiver will continue to verbalize understanding of high risk medication side effects and precautions throughout certification period. High Risk Medications No Manage discharge planning Description: Patient/caregiver will verbalize understanding of ongoing discharge plan provided related to disease management, arrangements for outpatient and/or community services, obtaining medications, supplies, and DME, as needed throughout certification period. Discharge No Patient/caregiver will make healthcare providers aware of and any changes to Advance Directives throughout certification period Advance Directives No Patient/Caregiver will have improved healing and be free of signs and symptoms of complications Description: Patient/caregiver will verbalize management strategies to promote wound healing & prevent complications as evidenced by improved healing & no complications by 01/27/24. SN Integumentary/Wounds No Demonstrate understanding of education Description: Patient and/or caregiver will verbalize understanding of educational instruction provided throughout certification period. SN Learning Assessment No Patient/Caregiver will verbalize understanding and demonstrate improved management of genitourinary disease/condition. Description: Patient/Caregiver will state understanding of genitourinary disease/condition and be able to teach back management strategies by 01/26/24. SN Genitourinary disease process No Improved management of GI disease/condition Description: Patient/Caregiver will demonstrate understanding of GI education as evidenced by improved management of gastrointestinal disease/condition by 01/26/24. SN Gastrointestinal No Interventions Intervention Associated Problem/Goal Status Variance Visit Notes Medication Education Description: Evaluate/instruct patient/caregiver on obtaining, storing, identifying and administering ordered medications as well as keeping accurate medication list in the home and adhereing to medication schedule Problem:Medication Education Goal:Patient/caregiver will demonstrate ability to obtain, store, identify and administer ordered medications, keep accurate medication list in home, and adhere to medication schedule Completed Patient instructed on importance of keeping accurate medication list in home, need to take up-to-date medication list to all medical provider appointments and adhering to medication schedule. Instruct on the risks and measures to be taken to prevent skin breakdown Description: Patient's Kaushik Score is: 16. A Kaushik score <= to 18 indicates risk for skin breakdown. Problem:Risk for skin breakdown Goal:Manage risk for skin breakdown Completed patient instructed on maintaining skin integrity including: The need for every 1-2 hour turns, position changes, and maintaining activity as tolerated SPO2 Description: Notify Dr. Sánchez if pulse ox is <92% at rest. Problem:Physician Specific Parameters Goal:Patient to maintain parameters within physician-specified ranges throughout certification period Completed Instruct on individual fall risk factors and strategies to prevent falls and injuries caused by falls. Problem:Risk for Falls Goal:Manage Risk for falls Completed SN: Patient instructed on Eliminating Environmental Hazards: Keep pathways clear, Keep pets out of pathways and Remove unsafe rugs Instruct on pain and instruct on strategies to control pain Problem:Pain Goal:Manage Pain Completed patient instructed on techniques to control pain including Pharmacological measures. Define patient s appetite/hydration status and implement strategies to improve compliance with prescribed diet and/or healthy nutrition. Problem:Nutrition/Hydr ation Goal:Manage Nutrition/Hydration Completed instructed patient on implementing strategies to comply with healthy nutrition Opioids- educated on high risk medication Problem:High Risk Medications Goal:Patient/caregiver will teach back high risk medication side effect and precaution education Completed patient educated on taking medication(s) as prescribed by provider. Do not stop medication or alter doses without speaking with your provider. Discuss medication effectiveness or side effect concerns with your provider and home care team. Only take opioids as prescribed, do not share your medications, and take proper precautions in storing and properly disposing of opioids once no longer needed. Possible side effects of opioid medication including sedation, decreased rate of breathing, and constipation. Report over sedation to prescribing provider and practice deep breathing techniques every hour while awake. Prevent constipation by increasing water and fiber intake, increasing activity as tolerated, and use stool softener(s) as prescribed. Antipsychotic- educated on high risk medication Problem:High Risk Medications Goal:Patient/caregiver will teach back high risk medication side effect and precaution education Completed patient educated on taking medication(s) as prescribed by provider. Do not stop medication or skip/alter doses without speaking with your provider. Discuss medication effectiveness or side effect concerns with your provider and home care team. There is a risk for weight gain and diabetes. Getting regular checkups and medical care as well as eating a nutritious diet, exercising regularly and getting enough sleep can help reduce this side effect. Other common side effects are dry mouth, dizziness, blurred vision, agitation or sedation (feeling tired or wired). Monitor for involuntary muscle movements such as tremors, muscle stiffness, or tics and report these to your prescribing provider. Seek emergency treatment if you develop seizures or a fever, muscle stiffness and delirium as this could be a sign of a rare but serious side effect. Instruct on ongoing discharge plan Problem:Discharge Goal:Manage discharge planning Completed Ongoing Discharge plan: Discharge plan discussed with patient including frequency and duration for home SN and plan for transition to: live at home with community assistance. Determine patient's Advance Directive Status Description: Patient does have advance directives. Patient's Advance Directives determined to be available in EMR Living Will. Problem:Advance Directives Goal:Patient/caregiver will make healthcare providers aware of and any changes to Advance Directives throughout certification period Completed Discussed Advance Directives with Patient and/or Caregiver. Referred patient to Home Care handbook for further information on Healthcare DPOA & Living Will. Wound Care: Perform wound care (1) Description: Wound Care Order: Incision location: abdomen Wound type (etiology): Incision Order: HURL SHAKER, skin glue in place Frequency: daily Wound care to be completed by patient except for scheduled SN wound care visits. Measure wound/incision at least weekly. Okay to substitute comparable products from home care formulary. Problem:SN Integumentary/Wounds Goal:Patient/Caregiver will have improved healing and be free of signs and symptoms of complications Completed Completed by SN. Patient did tolerate well. Instruct and educate on knowledge deficits Problem:SN Learning Assessment Goal:Demonstrate understanding of education Completed patient verbalize and/or demonstrate understanding of nursing education completed today. Education methods include: verbal cues and teach back. Further education required to improve knowledge and compliance with fall prevention/home safety strategies and gastrointestinal care management. Incontinence- Instruct Patient/Caregiver on measures to manage urinary incontinence Problem:SN Genitourinary disease process Goal:Patient/Caregiver will verbalize understanding and demonstrate improved management of genitourinary disease/condition. Completed patient instructed on measures to manage Urinary incontinence including: use of pads/protective garments. Diarrhea: Instruct Patient/Caregiver on measures to manage diarrhea Problem:SN Gastrointestinal Goal:Improved management of GI disease/condition Completed patient instructed on the following measures to relieve diarrhea: drink plenty of clear fluids. Also instructed on perineal skin care: apply barrier cream topically to prevent skin irritation. documented in this encounter [facility] home Plan of care note* Visit Details Visit Type -PT EVAL Discipline -Physical Therapy Problems Problem Description Start Date Status Goals Interve ntions PT Referral Disciplines: Skilled Services 01/11/2024 Resolved on 01/13/2024 1 goal linked to scheduled/document ed intervention 1 goal intervention scheduled/document ed in this visit Physician Specific Parameters Disciplines: Skilled Services 01/11/2024 Active 1 goal linked to scheduled/document ed intervention 1 goal intervention scheduled/document ed in this visit Risk for Falls Disciplines: Skilled Services 01/11/2024 Active 1 goal linked to scheduled/document ed intervention 1 goal intervention scheduled/document ed in this visit Pain Disciplines: Skilled Services 01/11/2024 Active 1 goal linked to scheduled/document ed intervention 1 goal intervention scheduled/document ed in this visit PT Learning Assessment Disciplines: PT 01/13/2024 Active 1 goal linked to scheduled/document ed intervention 1 goal intervention scheduled/document ed in this visit Goals Goal Associated Problem Outcome Goal Met? Visit Notes Patient will be referred to additional discipline as needed PT Referral Completed Yes Patient to maintain parameters within physician-specified ranges throughout certification period Physician Specific Parameters No Manage Risk for falls Description: Patient/caregiver will verbalize knowledge of individualized fall prevention strategies by 01/25/24. Risk for Falls No Manage Pain Description: Patient/caregiver will verbalize knowledge and understanding of appropriate techniques to control pain, including pain medication. Patient will verbalize or demonstrate an acceptable level of pain as evidenced by a pain score of 0/10 and improvement in ability to perform activities of daily living to be achieved by 01/25/24 Pain No Demonstrate understanding of education Description: Patient and/or caregiver will understand educational instruction to be achieved by 02/10/24. . PT Learning Assessment No Interventions Intervention Associated Problem/Goal Status Variance Visit Notes PT evaluation and treatment Description: Evaluate and treat for the assessment of functional deficits and establishment of appropriate interventions and education, including recommendations for functional mobility training, balance training for fall reduction, and strengthening. Problem:PT Referral Goal:Patient will be referred to additional discipline as needed Completed SPO2 Description: Notify Dr. Sánchez if pulse ox is <92% at rest. Problem:Physician Specific Parameters Goal:Patient to maintain parameters within physician-specified ranges throughout certification period Completed Instruct on individual fall risk factors and strategies to prevent falls and injuries caused by falls. Problem:Risk for Falls Goal:Manage Risk for falls Completed PT: Patient instructed on Managing Impaired Functional Mobility: Use assistive device(s): single point cane Managing Pain Instruct on pain and instruct on strategies to control pain Problem:Pain Goal:Manage Pain Completed patient instructed on techniques to control pain including Pharmacological measures and Non-Pharmacological measures; rest and positioning/elevation. Instruct and educate on knowledge deficits Problem:PT Learning Assessment Goal:Demonstrate understanding of education Completed patient verbalize and/or demonstrate understanding of physical therapy education including surgical precautions, pain management, fall prevention strategies, home safety, functional activity and home exercise program. Education methods include: verbal cues and written instructions. Further education required to improve knowledge and compliance with surgical precautions, pain management, fall prevention strategies, home safety, functional activity and home exercise program. [facility] Visit Details Visit Type -PT ROUTINE Discipline -Physical Therapy Problems Problem Description Start Date Status Goals Interve ntions Medication Education Disciplines: Skilled Services 01/11/2024 Active 1 goal linked to scheduled/document ed intervention 1 goal intervention scheduled/document ed in this visit Risk for skin breakdown Disciplines: Skilled Services 01/11/2024 Active 1 goal linked to scheduled/document ed intervention 1 goal intervention scheduled/document ed in this visit Physician Specific Parameters Disciplines: Skilled Services 01/11/2024 Active 1 goal linked to scheduled/document ed intervention 1 goal intervention scheduled/document ed in this visit Risk for Falls Disciplines: Skilled Services 01/11/2024 Active 1 goal linked to scheduled/document ed intervention 1 goal intervention scheduled/document ed in this visit Pain Disciplines: Skilled Services 01/11/2024 Active 1 goal linked to scheduled/document ed intervention 1 goal intervention scheduled/document ed in this visit Discharge Disciplines: Skilled Services 01/11/2024 Active 1 goal linked to scheduled/document ed intervention 1 goal intervention scheduled/document ed in this visit PT Impaired muscle performance and/or ROM Disciplines: PT 01/13/2024 Active 1 goal linked to scheduled/document ed intervention 1 goal intervention scheduled/document ed in this visit PT Impaired mobility Disciplines: PT 01/13/2024 Active 1 goal linked to scheduled/document ed intervention 1 goal intervention scheduled/document ed in this visit PT Impaired gait Disciplines: PT 01/13/2024 Active 2 goals linked to scheduled/document ed interventions 2 goal interventions scheduled/document ed in this visit PT Learning Assessment Disciplines: PT 01/13/2024 Active 1 goal linked to scheduled/document ed intervention 1 goal intervention scheduled/document ed in this visit Goals Goal Associated Problem Outcome Goal Met? Visit Notes Patient/caregiver will demonstrate ability to obtain, store, identify and administer ordered medications, keep accurate medication list in home, and adhere to medication schedule Description: Patient/caregiver will demonstrate ability to obtain, store, identify and administer ordered medications, keep accurate medication list in home, and adhere to medication schedule by 01/26/24. Medication Education No Manage risk for skin breakdown Description: Patient/caregiver will verbalize and demonstrate understanding of the risks and measures to be taken to monitor and prevent skin breakdown by 01/26/24. Risk for skin breakdown No Patient to maintain parameters within physician-specified ranges throughout certification period Physician Specific Parameters No Manage Risk for falls Description: Patient/caregiver will verbalize knowledge of individualized fall prevention strategies by 01/25/24. Risk for Falls No Manage Pain Description: Patient/caregiver will verbalize knowledge and understanding of appropriate techniques to control pain, including pain medication. Patient will verbalize or demonstrate an acceptable level of pain as evidenced by a pain score of 0/10 and improvement in ability to perform activities of daily living to be achieved by 01/25/24 Pain No Manage discharge planning Description: Patient/caregiver will verbalize understanding of ongoing discharge plan provided related to disease management, arrangements for outpatient and/or community services, obtaining medications, supplies, and DME, as needed throughout certification period. Discharge No Improved Muscle Performance and/or ROM Description: LTG: Patient will demonstrate improved muscle performance to meet functional goals as evidenced by ability to tolerate 10-15 minutes of therapeutic activity, to be achieved by 02/10/24. . STG: Patient and/or caregiver will verbalize/demonstrate independence with home exercise program, to improve functional mobility, to be achieved by 01/27/24. PT Impaired muscle performance and/or ROM No Improved Transfers Description: LTG: Patient will demonstrate safe transfers to/from bed, chair, toilet, couch and car independently, to be achieved by 02/03/24. PT Impaired mobility No Improved Stair Climbing Description: STG:: Patient will demonstrate improved stair negotiation as evidenced by ascend/descend 2 steps without railing independently, to be achieved by 01/20/24. LTG: Patient will demonstrate improved stair negotiation as evidenced by ascend/descend 15 steps with railing independently, to safely access all areas of the home, to be achieved by 02/10/24. . PT Impaired gait No Improved Gait Description: LTG: Patient will demonstrate improved gait ability as evidenced by ambulation 200 feet with no device independently, to return to safe household and community ambulation, in order to return to plf, to be achieved by 02/10/24. . PT Impaired gait No Demonstrate understanding of education Description: Patient and/or caregiver will understand educational instruction to be achieved by 02/10/24. . PT Learning Assessment No Interventions Intervention Associated Problem/Goal Status Variance Visit Notes Medication Education Description: Evaluate/instruct patient/caregiver on obtaining, storing, identifying and administering ordered medications as well as keeping accurate medication list in the home and adhereing to medication schedule Problem:Medication Education Goal:Patient/caregive r will demonstrate ability to obtain, store, identify and administer ordered medications, keep accurate medication list in home, and adhere to medication schedule Completed Patient instructed on importance of keeping accurate medication list in home and need to take up-to-date medication list to all medical provider appointments. Instruct on the risks and measures to be taken to prevent skin breakdown Description: Patient's Kaushik Score is: 16. A Kaushik score <= to 18 indicates risk for skin breakdown. Problem:Risk for skin breakdown Goal:Manage risk for skin breakdown Completed patient instructed on maintaining skin integrity including: The need for every 1-2 hour turns, position changes, and maintaining activity as tolerated and Reducing risk of friction and shear, including use of draw sheet as appropriate. SPO2 Description: Notify Dr. Sánchez if pulse ox is <92% at rest. Problem:Physician Specific Parameters Goal:Patient to maintain parameters within physician-specified ranges throughout certification period Completed Instruct on individual fall risk factors and strategies to prevent falls and injuries caused by falls. Problem:Risk for Falls Goal:Manage Risk for falls Completed PT: Patient instructed on Eliminating Environmental Hazards: Keep pathways clear Managing Pain Instruct on pain and instruct on strategies to control pain Problem:Pain Goal:Manage Pain Completed patient instructed on techniques to control pain including Pharmacological measures and Non-Pharmacological measures; rest and positioning/elevation. Instruct on ongoing discharge plan Problem:Discharge Goal:Manage discharge planning Completed Ongoing Discharge plan: Discharge plan discussed with patient including frequency and duration for home PT and plan for transition to: live independently at home without ongoing services. Physical Therapy Therapeutic Exercises Problem:PT Impaired muscle performance and/or ROM Goal:Improved Muscle Performance and/or ROM Completed Instructed patient on strengthening exercises for LE's. PT instructed patient in standing heel/toe raises, hip flexion (small range),/extension/abdu ction, hamstring curls. Reps: 5-10. Patient required verbal/tactile cues for technique to maintain upright posture and prevent trunk compensation. PT instructed patient to perform HEP 1x/day increasing reps as tolerating within pain-free range. Physical Therapy Transfer Training Problem:PT Impaired mobility Goal:Improved Transfers Completed Transfer training and instruction to patient on safe transfers to and from chair with PT supervision and verbal cues for safety. PT instructed patient to always pause between position changes to allow head to clear. Physical Therapy Stair Training Problem:PT Impaired gait Goal:Improved Stair Climbing Completed Stair training and instruction to patient on safe stair climbing, ascend/descend 14 indoor steps, with railing with PT stand by assist and verbal cues for safety and technique. PT educated patient on pacing self while on steps. PT recommended patient place chair at the top of the steps to have a place to sit and rest as needed. Physical Therapy Gait Training Problem:PT Impaired gait Goal:Improved Gait Completed Gait training and instruction to patient on safe ambulation with quad cane for 110 feet with supervision, with verbal cues for corrections of gait deviations. PT instructed patient on proper cane/leg sequencing. Patient with tendency to hit quad cane on furniture or foot. PT recommended regular straight for patient. Gait training and instruction to patient on safe ambulation with no device in the home on level surface for 120 feet with PT supervision. Patient demonstrating slight forward flexed posture. PT cued patient to correct. No LOB noted. PT educated patient on progressive walking program in the home. Instruct and educate on knowledge deficits Problem:PT Learning Assessment Goal:Demonstrate understanding of education Completed patient verbalize and/or demonstrate understanding of physical therapy education including surgical precautions, pain management, fall prevention strategies and home safety. [facility] Visit Details Visit Type -PT ROUTINE Discipline -Physical Therapy Problems Problem Description Start Date Status Goals Interve ntions Physician Specific Parameters Disciplines: Skilled Services 01/11/2024 Active 1 goal linked to scheduled/document ed intervention 1 goal intervention scheduled/document ed in this visit Risk for Falls Disciplines: Skilled Services 01/11/2024 Active 1 goal linked to scheduled/document ed intervention 1 goal intervention scheduled/document ed in this visit Pain Disciplines: Skilled Services 01/11/2024 Active 1 goal linked to scheduled/document ed intervention 1 goal intervention scheduled/document ed in this visit PT Impaired muscle performance and/or ROM Disciplines: PT 01/13/2024 Active 1 goal linked to scheduled/document ed intervention 1 goal intervention scheduled/document ed in this visit PT Impaired mobility Disciplines: PT 01/13/2024 Active 1 goal linked to scheduled/document ed intervention 1 goal intervention scheduled/document ed in this visit PT Impaired gait Disciplines: PT 01/13/2024 Active 1 goal linked to scheduled/document ed intervention 1 goal intervention scheduled/document ed in this visit PT Learning Assessment Disciplines: PT 01/13/2024 Active 1 goal linked to scheduled/document ed intervention 1 goal intervention scheduled/document ed in this visit Goals Goal Associated Problem Outcome Goal Met? Visit Notes Patient to maintain parameters within physician-specified ranges throughout certification period Physician Specific Parameters No Manage Risk for falls Description: Patient/caregiver will verbalize knowledge of individualized fall prevention strategies by 01/25/24. Risk for Falls No Manage Pain Description: Patient/caregiver will verbalize knowledge and understanding of appropriate techniques to control pain, including pain medication. Patient will verbalize or demonstrate an acceptable level of pain as evidenced by a pain score of 0/10 and improvement in ability to perform activities of daily living to be achieved by 01/25/24 Pain No Improved Muscle Performance and/or ROM Description: LTG: Patient will demonstrate improved muscle performance to meet functional goals as evidenced by ability to tolerate 10-15 minutes of therapeutic activity, to be achieved by 02/10/24. . STG: Patient and/or caregiver will verbalize/demonstrate independence with home exercise program, to improve functional mobility, to be achieved by 01/27/24. PT Impaired muscle performance and/or ROM No Improved Transfers Description: LTG: Patient will demonstrate safe transfers to/from bed, chair, toilet, couch and car independently, to be achieved by 02/03/24. PT Impaired mobility No Improved Gait Description: LTG: Patient will demonstrate improved gait ability as evidenced by ambulation 200 feet with no device independently, to return to safe household and community ambulation, in order to return to [facility], to be achieved by 02/10/24. . PT Impaired gait No Demonstrate understanding of education Description: Patient and/or caregiver will understand educational instruction to be achieved by 02/10/24. . PT Learning Assessment No Interventions Intervention Associated Problem/Goal Status Variance Visit Notes SPO2 Description: Notify Dr. Sánchez if pulse ox is <92% at rest. Problem:Physician Specific Parameters Goal:Patient to maintain parameters within physician-specified ranges throughout certification period Completed Instruct on individual fall risk factors and strategies to prevent falls and injuries caused by falls. Problem:Risk for Falls Goal:Manage Risk for falls Completed PT: Patient instructed on Eliminating Environmental Hazards: Keep pathways clear, Remove unsafe rugs, Move furniture from pathways, Keep rooms and walkways well lit and Install hand rails/grab bars Managing Impaired Functional Mobility: Use assistive device(s): quad cane Managing Pain Instruct on pain and instruct on strategies to control pain Problem:Pain Goal:Manage Pain Completed patient instructed on techniques to control pain including Pharmacological measures and Non-Pharmacological measures; rest and positioning/elevation. Physical Therapy Therapeutic Exercises Problem:PT Impaired muscle performance and/or ROM Goal:Improved Muscle Performance and/or ROM Completed patient instructed on strengthening exercises including STANDING : HEEL RAISES, TOE RAISES , KNEE FLEX, HIP EXT, HIP FLEX, HIP ABD, KNEE BENDS X 10 with verbal, visual and written cues for TECHNIQUE. patient instructed to perform home exercise program 2 times a day which included hourly ambulation . Physical Therapy Transfer Training Problem:PT Impaired mobility Goal:Improved Transfers Completed Transfer training and instruction to patient on safe transfers to and from chair with supervision and verbal cues for technqiue . Physical Therapy Gait Training Problem:PT Impaired gait Goal:Improved Gait Completed Gait training and instruction to patient on safe ambulation with no device for 50 feet with supervision, with verbal cues for corrections of gait deviations including pacing . Instruct and educate on knowledge deficits Problem:PT Learning Assessment Goal:Demonstrate understanding of education Completed patient verbalize and/or demonstrate understanding of physical therapy education including surgical precautions, fall prevention strategies, home safety, functional activity and home exercise program. Education methods include: verbal cues and written instructions. Further education required to improve knowledge and compliance with fall prevention strategies, home safety, functional activity and home exercise program. documented in this encounter [facility] home Plan of care note* Visit Details Visit Type -SN ROUTINE Discipline -[facility] Problems Problem Description Start Date Status Goals Interve ntions Medication Education Disciplines: Skilled Services 01/11/2024 Active 1 goal linked to scheduled/document ed intervention 1 goal intervention scheduled/documente d in this visit Physician Specific Parameters Disciplines: Skilled Services 01/11/2024 Active 1 goal linked to scheduled/document ed intervention 1 goal intervention scheduled/documente d in this visit Risk for Falls Disciplines: Skilled Services 01/11/2024 Active 1 goal linked to scheduled/document ed intervention 1 goal intervention scheduled/documente d in this visit Pain Disciplines: Skilled Services 01/11/2024 Active 1 goal linked to scheduled/document ed intervention 1 goal intervention scheduled/documente d in this visit Nutrition/Hydra tion Disciplines: Skilled Services 01/11/2024 Active 1 goal linked to scheduled/document ed intervention 1 goal intervention scheduled/documente d in this visit SN Learning Assessment Disciplines: SN 01/11/2024 Active 1 goal linked to scheduled/document ed intervention 1 goal intervention scheduled/documente d in this visit SN Gastrointestina l Disciplines: SN 01/11/2024 Active 1 goal linked to scheduled/document ed intervention 1 goal intervention scheduled/documente d in this visit Goals Goal Associated Problem Outcome Goal Met? Visit Notes Patient/caregiver will demonstrate ability to obtain, store, identify and administer ordered medications, keep accurate medication list in home, and adhere to medication schedule Description: Patient/caregiver will demonstrate ability to obtain, store, identify and administer ordered medications, keep accurate medication list in home, and adhere to medication schedule by 01/26/24. Medication Education No Patient to maintain parameters within physician-specified ranges throughout certification period Physician Specific Parameters No Manage Risk for falls Description: Patient/caregiver will verbalize knowledge of individualized fall prevention strategies by 01/25/24. Risk for Falls No Manage Pain Description: Patient/caregiver will verbalize knowledge and understanding of appropriate techniques to control pain, including pain medication. Patient will verbalize or demonstrate an acceptable level of pain as evidenced by a pain score of 0/10 and improvement in ability to perform activities of daily living to be achieved by 01/25/24 Pain No Manage Nutrition/Hydration Description: Patient/caregiver will verbalize/demonstrate knowledge of prescribed diet and/or healthy nutrition to be achieved by 01/26/24. Nutrition/Hydration No Demonstrate understanding of education Description: Patient and/or caregiver will verbalize understanding of educational instruction provided throughout certification period. SN Learning Assessment No Improved management of GI disease/condition Description: Patient/Caregiver will demonstrate understanding of GI education as evidenced by improved management of gastrointestinal disease/condition by 01/26/24. SN Gastrointestinal No Interventions Intervention Associated Problem/Goal Status Variance Visit Notes Medication Education Description: Evaluate/instruct patient/caregiver on obtaining, storing, identifying and administering ordered medications as well as keeping accurate medication list in the home and adhereing to medication schedule Problem:Medication Education Goal:Patient/caregiver will demonstrate ability to obtain, store, identify and administer ordered medications, keep accurate medication list in home, and adhere to medication schedule Completed Patient instructed on adhering to medication schedule. SPO2 Description: Notify Dr. Sánchez if pulse ox is <92% at rest. Problem:Physician Specific Parameters Goal:Patient to maintain parameters within physician-specified ranges throughout certification period Completed Instruct on individual fall risk factors and strategies to prevent falls and injuries caused by falls. Problem:Risk for Falls Goal:Manage Risk for falls Completed SN: Patient instructed on Eliminating Environmental Hazards: Keep pathways clear and Keep rooms and walkways well lit Instruct on pain and instruct on strategies to control pain Problem:Pain Goal:Manage Pain Completed patient instructed on techniques to control pain including Non-Pharmacological measures; rest and positioning/elevation. Define patient s appetite/hydration status and implement strategies to improve compliance with prescribed diet and/or healthy nutrition. Problem:Nutrition/Hydr ation Goal:Manage Nutrition/Hydration Completed reinforced patient on implementing strategies to comply with prescribed diet, healthy nutrition and adequate hydration Instruct and educate on knowledge deficits Problem:SN Learning Assessment Goal:Demonstrate understanding of education Completed patient verbalize and/or demonstrate understanding of nursing education completed today. Education methods include: verbal cues and written instructions. Further education required to improve knowledge and compliance with fall prevention/home safety strategies, gastrointestinal care management, incision/wound care management, integumentary care management, medication management and nutrition. Diarrhea: Instruct Patient/Caregiver on measures to manage diarrhea Problem:SN Gastrointestinal Goal:Improved management of GI disease/condition Completed patient instructed on the following measures to relieve diarrhea: avoid greasy, spicy and high fiber foods. Also instructed on perineal skin care: apply barrier cream topically to prevent skin irritation. documented in this encounter [facility] home Plan of care note* Visit Details Visit Type -STEEL [employer]LOADER ROUTINE Discipline -Physical Therapy Problems Problem Description Start Date Status Goals Interve ntions Medication Education Disciplines: Skilled Services 01/11/2024 Active 1 goal linked to scheduled/document ed intervention 1 goal intervention scheduled/document ed in this visit Risk for skin breakdown Disciplines: Skilled Services 01/11/2024 Active 1 goal linked to scheduled/document ed intervention 1 goal intervention scheduled/document ed in this visit Physician Specific Parameters Disciplines: Skilled Services 01/11/2024 Active 1 goal linked to scheduled/document ed intervention 1 goal intervention scheduled/document ed in this visit Risk for Falls Disciplines: Skilled Services 01/11/2024 Active 1 goal linked to scheduled/document ed intervention 1 goal intervention scheduled/document ed in this visit Pain Disciplines: Skilled Services 01/11/2024 Active 1 goal linked to scheduled/document ed intervention 1 goal intervention scheduled/document ed in this visit Discharge Disciplines: Skilled Services 01/11/2024 Active 1 goal linked to scheduled/document ed intervention 1 goal intervention scheduled/document ed in this visit PT Impaired muscle performance and/or ROM Disciplines: PT 01/13/2024 Active 1 goal linked to scheduled/document ed intervention 1 goal intervention scheduled/document ed in this visit PT Impaired gait Disciplines: PT 01/13/2024 Active 2 goals linked to scheduled/document ed interventions 2 goal interventions scheduled/document ed in this visit PT Impaired balance Disciplines: PT 01/13/2024 Active 1 goal linked to scheduled/document ed intervention 1 goal intervention scheduled/document ed in this visit PT Learning Assessment Disciplines: PT 01/13/2024 Active 1 goal linked to scheduled/document ed intervention 1 goal intervention scheduled/document ed in this visit Goals Goal Associated Problem Outcome Goal Met? Visit Notes Patient/caregiver will demonstrate ability to obtain, store, identify and administer ordered medications, keep accurate medication list in home, and adhere to medication schedule Description: Patient/caregiver will demonstrate ability to obtain, store, identify and administer ordered medications, keep accurate medication list in home, and adhere to medication schedule by 01/26/24. Medication Education No Manage risk for skin breakdown Description: Patient/caregiver will verbalize and demonstrate understanding of the risks and measures to be taken to monitor and prevent skin breakdown by 01/26/24. Risk for skin breakdown No Patient to maintain parameters within physician-specified ranges throughout certification period Physician Specific Parameters No Manage Risk for falls Description: Patient/caregiver will verbalize knowledge of individualized fall prevention strategies by 01/25/24. Risk for Falls No Manage Pain Description: Patient/caregiver will verbalize knowledge and understanding of appropriate techniques to control pain, including pain medication. Patient will verbalize or demonstrate an acceptable level of pain as evidenced by a pain score of 0/10 and improvement in ability to perform activities of daily living to be achieved by 01/25/24 Pain No Manage discharge planning Description: Patient/caregiver will verbalize understanding of ongoing discharge plan provided related to disease management, arrangements for outpatient and/or community services, obtaining medications, supplies, and DME, as needed throughout certification period. Discharge No Improved Muscle Performance and/or ROM Description: LTG: Patient will demonstrate improved muscle performance to meet functional goals as evidenced by ability to tolerate 10-15 minutes of therapeutic activity, to be achieved by 02/10/24. . STG: Patient and/or caregiver will verbalize/demonstrate independence with home exercise program, to improve functional mobility, to be achieved by 01/27/24. PT Impaired muscle performance and/or ROM No Improved Stair Climbing Description: STG:: Patient will demonstrate improved stair negotiation as evidenced by ascend/descend 2 steps without railing independently, to be achieved by 01/20/24. LTG: Patient will demonstrate improved stair negotiation as evidenced by ascend/descend 15 steps with railing independently, to safely access all areas of the home, to be achieved by 02/10/24. . PT Impaired gait No Improved Gait Description: LTG: Patient will demonstrate improved gait ability as evidenced by ambulation 200 feet with no device independently, to return to safe household and community ambulation, in order to return to [facility], to be achieved by 02/10/24. . PT Impaired gait No Improved Balance Description: LTG: Patient will demonstrate improved standing balance to meet functional goals as evidenced by TUG score of <14 to be achieved by 02/10/24. PT Impaired balance No Demonstrate understanding of education Description: Patient and/or caregiver will understand educational instruction to be achieved by 02/10/24. . PT Learning Assessment No Interventions Intervention Associated Problem/Goal Status Variance Visit Notes Medication Education Description: Evaluate/instruct patient/caregiver on obtaining, storing, identifying and administering ordered medications as well as keeping accurate medication list in the home and adhereing to medication schedule Problem:Medication Education Goal:Patient/caregive r will demonstrate ability to obtain, store, identify and administer ordered medications, keep accurate medication list in home, and adhere to medication schedule Completed Patient instructed on importance of keeping accurate medication list in home. Instruct on the risks and measures to be taken to prevent skin breakdown Description: Patient's Kaushik Score is: 16. A Kaushik score <= to 18 indicates risk for skin breakdown. Problem:Risk for skin breakdown Goal:Manage risk for skin breakdown Completed patient instructed on maintaining skin integrity including: The need for every 1-2 hour turns, position changes, and maintaining activity as tolerated SPO2 Description: Notify Dr. Sánchez if pulse ox is <92% at rest. Problem:Physician Specific Parameters Goal:Patient to maintain parameters within physician-specified ranges throughout certification period Completed Instruct on individual fall risk factors and strategies to prevent falls and injuries caused by falls. Problem:Risk for Falls Goal:Manage Risk for falls Completed PT: Patient instructed on Eliminating Environmental Hazards: Keep pets out of pathways Instruct on pain and instruct on strategies to control pain Problem:Pain Goal:Manage Pain Completed patient instructed on techniques to control pain including Non-Pharmacological measures; rest. Instruct on ongoing discharge plan Problem:Discharge Goal:Manage discharge planning Completed Ongoing Discharge plan: Discharge plan discussed with patient including frequency and duration for home PT and plan for transition to: live independently at home without ongoing services. Physical Therapy Therapeutic Exercises Problem:PT Impaired muscle performance and/or ROM Goal:Improved Muscle Performance and/or ROM Completed patient instructed on strengthening exercises including standing heel toe raises, hams curls hip abd and hip flexion 1/4 squats x's 10 step ups x's 5 each with verbal and visual cues for form and pace . patient instructed to perform home exercise program twice a day which included above ex. Physical Therapy Stair Training Problem:PT Impaired gait Goal:Improved Stair Climbing Completed Stair training and instruction to patient on safe stair climbing, ascend/descend 1 steps x's 5 each leg with railing and with wall with supervision and verbal and visual cues for technique. Physical Therapy Gait Training Problem:PT Impaired gait Goal:Improved Gait Completed Gait training and instruction to patient on safe ambulation with no device for 3x's25 feet with independent, Physical Therapy Balance Training Problem:PT Impaired balance Goal:Improved Balance Completed Developed, implemented, and instructed patient on standing balance exercises including standing LE strength ex. Instruct and educate on knowledge deficits Problem:PT Learning Assessment Goal:Demonstrate understanding of education Completed patient verbalize and/or demonstrate understanding of physical therapy education including home exercise program. Education methods include: verbal cues. Further education required to improve knowledge and compliance with home exercise program. [facility] Visit Details Visit Type -SN ROUTINE Discipline -[facility] Problems Problem Description Start Date Status Goals Interve ntions Medication Education Disciplines: Skilled Services 01/11/2024 Active 1 goal linked to scheduled/documen claudia intervention 1 goal intervention scheduled/document ed in this visit Risk for skin breakdown Disciplines: Skilled Services 01/11/2024 Active 1 goal linked to scheduled/documen claudia intervention Physician Specific Parameters Disciplines: Skilled Services 01/11/2024 Active 1 goal linked to scheduled/documen claudia intervention 1 goal intervention scheduled/document ed in this visit Risk for Falls Disciplines: Skilled Services 01/11/2024 Active 1 goal linked to scheduled/documen claudia intervention 1 goal intervention scheduled/document ed in this visit Pain Disciplines: Skilled Services 01/11/2024 Active 1 goal linked to scheduled/documen claudia intervention 1 goal intervention scheduled/document ed in this visit Nutrition/Hydration Disciplines: Skilled Services 01/11/2024 Active 1 goal linked to scheduled/documen claudia intervention 1 goal intervention scheduled/document ed in this visit High Risk Medications Disciplines: Skilled Services 01/11/2024 Active 1 goal linked to scheduled/documen claudia intervention SN Integumentary/Wound s Disciplines: SN 01/11/2024 Active 1 goal linked to scheduled/documen claudia intervention SN Learning Assessment Disciplines: SN 01/11/2024 Active 1 goal linked to scheduled/documen claudia intervention 1 goal intervention scheduled/document ed in this visit SN Genitourinary disease process Disciplines: 01/11/2024 Active 1 goal linked to scheduled/documen claudia intervention SN Gastrointestinal Disciplines: 01/11/2024 Active 1 goal linked to scheduled/documen claudia intervention Goals Goal Associated Problem Outcome Goal Met? Visit Notes Patient/caregiver will demonstrate ability to obtain, store, identify and administer ordered medications, keep accurate medication list in home, and adhere to medication schedule Description: Patient/caregiver will demonstrate ability to obtain, store, identify and administer ordered medications, keep accurate medication list in home, and adhere to medication schedule by 01/26/24. Medication Education No Manage risk for skin breakdown Description: Patient/caregiver will verbalize and demonstrate understanding of the risks and measures to be taken to monitor and prevent skin breakdown by 01/26/24. Risk for skin breakdown Completed Yes Patient to maintain parameters within physician-specified ranges throughout certification period Physician Specific Parameters No Manage Risk for falls Description: Patient/caregiver will verbalize knowledge of individualized fall prevention strategies by 01/25/24. Risk for Falls No Manage Pain Description: Patient/caregiver will verbalize knowledge and understanding of appropriate techniques to control pain, including pain medication. Patient will verbalize or demonstrate an acceptable level of pain as evidenced by a pain score of 0/10 and improvement in ability to perform activities of daily living to be achieved by 01/25/24 Pain No Manage Nutrition/Hydration Description: Patient/caregiver will verbalize/demonstrate knowledge of prescribed diet and/or healthy nutrition to be achieved by 01/26/24. Nutrition/Hydration No Patient/caregiver will teach back high risk medication side effect and precaution education Description: STG Patient/caregiver will verbalize understanding of high risk medication side effects and precautions to be achieved by 01/26/24. LTG Patient/caregiver will continue to verbalize understanding of high risk medication side effects and precautions throughout certification period. High Risk Medications Completed Yes Patient/Caregiver will have improved healing and be free of signs and symptoms of complications Description: Patient/caregiver will verbalize management strategies to promote wound healing & prevent complications as evidenced by improved healing & no complications by 01/27/24. SN Integumentary/Wounds In Progress No Demonstrate understanding of education Description: Patient and/or caregiver will verbalize understanding of educational instruction provided throughout certification period. SN Learning Assessment No Patient/Caregiver will verbalize understanding and demonstrate improved management of genitourinary disease/condition. Description: Patient/Caregiver will state understanding of genitourinary disease/condition and be able to teach back management strategies by 01/26/24. SN Genitourinary disease process Completed Yes Improved management of GI disease/condition Description: Patient/Caregiver will demonstrate understanding of GI education as evidenced by improved management of gastrointestinal disease/condition by 01/26/24. SN Gastrointestinal Completed Yes Interventions Intervention Associated Problem/Goal Status Variance Visit Notes Medication Education Description: Evaluate/instruct patient/caregiver on obtaining, storing, identifying and administering ordered medications as well as keeping accurate medication list in the home and adhereing to medication schedule Problem:Medication Education Goal:Patient/caregiv er will demonstrate ability to obtain, store, identify and administer ordered medications, keep accurate medication list in home, and adhere to medication schedule Completed Patient instructed on adhering to medication schedule. SPO2 Description: Notify Dr. Sánchez if pulse ox is <92% at rest. Problem:Physician Specific Parameters Goal:Patient to maintain parameters within physician-specified ranges throughout certification period Completed Instruct on individual fall risk factors and strategies to prevent falls and injuries caused by falls. Problem:Risk for Falls Goal:Manage Risk for falls Completed SN: Patient instructed on Eliminating Environmental Hazards: Keep pathways clear, Keep pets out of pathways and Keep rooms and walkways well lit Instruct on pain and instruct on strategies to control pain Problem:Pain Goal:Manage Pain Completed patient instructed on techniques to control pain including Pharmacological measures and Non-Pharmacological measures; rest. Define patient s appetite/hydration status and implement strategies to improve compliance with prescribed diet and/or healthy nutrition. Problem:Nutrition/Hy dration Goal:Manage Nutrition/Hydration Completed reinforced patient on implementing strategies to comply with healthy nutrition and adequate hydration Instruct and educate on knowledge deficits Problem:SN Learning Assessment Goal:Demonstrate understanding of education Completed patient verbalize and/or demonstrate understanding of nursing education completed today. Education methods include: verbal cues. Further education required to improve knowledge and compliance with fall prevention/home safety strategies, gastrointestinal care management, incision/wound care management, medication management, nutrition, pain management and surgical care precautions. [facility] Visit Details Visit Type -SN AGENCY DC W V ISIT Discipline -Fci Problems Problem Description Start Date Status Goals Interve ntions Medication Education Disciplines: Skilled Services 01/11/2024 Active 1 goal linked to scheduled/document ed intervention 1 goal intervention scheduled/documente d in this visit Physician Specific Parameters Disciplines: Skilled Services 01/11/2024 Active 1 goal linked to scheduled/document ed intervention 1 goal intervention scheduled/documente d in this visit Risk for Falls Disciplines: Skilled Services 01/11/2024 Active 1 goal linked to scheduled/document ed intervention 1 goal intervention scheduled/documente d in this visit Pain Disciplines: Skilled Services 01/11/2024 Active 1 goal linked to scheduled/document ed intervention 1 goal intervention scheduled/documente d in this visit Discharge Disciplines: Skilled Services 01/11/2024 Active 1 goal linked to scheduled/document ed intervention 1 goal intervention scheduled/documente d in this visit SN Learning Assessment Disciplines: SN 01/11/2024 Active 1 goal linked to scheduled/document ed intervention 1 goal intervention scheduled/documente d in this visit Goals Goal Associated Problem Outcome Goal Met? Visit Notes Patient/caregiver will demonstrate ability to obtain, store, identify and administer ordered medications, keep accurate medication list in home, and adhere to medication schedule Description: Patient/caregiver will demonstrate ability to obtain, store, identify and administer ordered medications, keep accurate medication list in home, and adhere to medication schedule by 01/26/24. Medication Education No Patient to maintain parameters within physician-specified ranges throughout certification period Physician Specific Parameters No Manage Risk for falls Description: Patient/caregiver will verbalize knowledge of individualized fall prevention strategies by 01/25/24. Risk for Falls No Manage Pain Description: Patient/caregiver will verbalize knowledge and understanding of appropriate techniques to control pain, including pain medication. Patient will verbalize or demonstrate an acceptable level of pain as evidenced by a pain score of 0/10 and improvement in ability to perform activities of daily living to be achieved by 01/25/24 Pain No Manage discharge planning Description: Patient/caregiver will verbalize understanding of ongoing discharge plan provided related to disease management, arrangements for outpatient and/or community services, obtaining medications, supplies, and DME, as needed throughout certification period. Discharge No Demonstrate understanding of education Description: Patient and/or caregiver will verbalize understanding of educational instruction provided throughout certification period. SN Learning Assessment No Interventions Intervention Associated Problem/Goal Status Variance Visit Notes Medication Education Description: Evaluate/instruct patient/caregiver on obtaining, storing, identifying and administering ordered medications as well as keeping accurate medication list in the home and adhereing to medication schedule Problem:Medication Education Goal:Patient/caregiv er will demonstrate ability to obtain, store, identify and administer ordered medications, keep accurate medication list in home, and adhere to medication schedule Completed Patient instructed on adhering to medication schedule. SPO2 Description: Notify Dr. Sánchez if pulse ox is <92% at rest. Problem:Physician Specific Parameters Goal:Patient to maintain parameters within physician-specified ranges throughout certification period Completed Instruct on individual fall risk factors and strategies to prevent falls and injuries caused by falls. Problem:Risk for Falls Goal:Manage Risk for falls Completed SN: Patient instructed on Eliminating Environmental Hazards: Keep pathways clear, Keep pets out of pathways and Keep rooms and walkways well lit Instruct on pain and instruct on strategies to control pain Problem:Pain Goal:Manage Pain Completed patient instructed on techniques to control pain including Pharmacological measures and Non-Pharmacological measures; positioning/elevation. Instruct on final discharge plan and deliver discharge instructions Problem:Discharge Goal:Manage discharge planning Completed Delivered Discharge plan: Discharge plan discussed with patient for plan for transition to: live independently at home without ongoing services Instruct and educate on knowledge deficits Problem:SN Learning Assessment Goal:Demonstrate understanding of education Completed patient verbalize and/or demonstrate understanding of nursing education completed today. Education methods include: verbal cues and written instructions. Further education required to improve knowledge and compliance with cancer care management, fall prevention/home safety strategies, gastrointestinal care management, incision/wound care management, medication management, nutrition, pain management and surgical care precautions. [facility])No reason for referral information availableWElyria Memorial Hospital Work Phone: Reason for visit Narrative* MRI/CT (Routine) - Closed Specialty Diagnoses / Procedures Referred By Contac t Referred To Contact CT IMAGING Diagnoses Right lower quadrant abdominal pain Procedures CT ABD/PEL W IVCON CT ABD & PELVIS W/CONTRAST Tessa Spring MD [address] [place] [address] Phone: tel: fax: [place] [address] Referral ID Status Reason Start Date Expiration Date V isits Requested Visits Authorized [id number] Closed Auto-Generate d Referral 07/02/2024 08/01/[address] [facility] Summary Purpose Family History No Family History Records Found Relationship Condition Age at Onset Recorded Date/T juli sister Malignant melanoma Unknown father Malignant neoplasm of prostate Unknown Advance Directives No Advanced Directives Records FoundDocuments on File Type Date Recorded Patient Certified Nurse Operating Room Expl anation Advance Directive(s) 01/28/2019 9:06 AM Advance Directive(s) 01/08/2019 6:27 PM Advance Directive(s) 11/29/2018 2:09 PM Advance Directive Response Recorded Date/ Time Living Will No July 24, 2020 12:23am Power of Land Title Examiner No July 24 12:23am Advance Directive Response Recorded Date/ Time Living Will No August 16, 2022 1 0:01pm Power of Land Title Examiner No August 16, 2022 10:01pm Advance Directive Response Recorded Date/ Time Living Will No August 16, 2022 9 :01pm Power of Land Title Examiner No August 16, 2022 9:01pm Documents on File Type Date Recorded Patient Certified Nurse Operating Room Expl anation Advance Directive(s) 09/13/2023 12:11 PM Advance Directive(s) 09/12/2023 3:32 PM Date Activated Date Inactivated Comments 09/08/2023 10:55 PM Question Answer Comments Full Code Order Discussed With: Patient Date Activated Date Inactivated Comments 09/08/2023 10:55 PM 09/27/2023 5:15 PM Documents on File Type Date Recorded Patient Certified Nurse Operating Room Expl anation Advance Directive(s) 09/13/2023 12:11 PM Advance Directive(s) 09/12/2023 3:32 PM Date Activated Date Inactivated Comments 09/08/2023 10:55 PM 09/27/2023 5:15 PM Question Answer Comments Full Code Order Discussed With: Patient Date Activated Date Inactivated Comments 01/11/2024 5:29 PM Date Activated Date Inactivated Comments 09/08/2023 10:55 PM 09/27/2023 5:15 PM Question Answer Comments Full Code Order Discussed With: Patient Date Activated Date Inactivated Comments 01/11/2024 5:29 PM Date Activated Date Inactivated Comments 09/08/2023 10:55 PM 09/27/2023 5:15 PM Question Answer Comments Full Code Order Discussed With: Patient Advance Directive Response Recorded Date/ Time Living Will No April 08 4:53pm Do you have a Healthcare Power of Land Title Examiner? No April 08, 2024 4:53pm Living Will Yes July 11, 2024 11:00am Do you have a Healthcare Power of Land Title Examiner? Yes July 11, 2024 11:00am Name of Medical Power of Land Title Examiner . July 11, 2024 11:00am Date Activated Date Inactivated Comments 01/11/2024 5:29 PM 07/24/2024 8:46 AM Date Activated Date Inactivated Comments 01/11/2024 5:29 PM 07/24/2024 8:46 AM Date Activated Date Inactivated Comments 08/19/2024 3:56 PM Date Activated Date Inactivated Comments 01/11/2024 5:29 PM 07/24/2024 8:46 AM Date Activated Date Inactivated Comments 09/08/2023 10:55 PM 09/27/2023 5:15 PM Question Answer Comments Full Code Order Discussed With: Patient Date Activated Date Inactivated Comments 08/19/2024 3:56 PM 08/21/2024 6:00 PM Advance Directive Response Recorded Date/ Time Living Will Yes July 11, 2024 11:00am Do you have a Healthcare Pow er of Land Title Examiner? Yes July 11, 2024 11:00am Name of Medical Power of Land Title Examiner . July 11, 2024 11:00am Do you have a Healthcare Pow er of Land Title Examiner? Yes September 05, 2024 3:19pm Name of Medical Power of Land Title Examiner Jeanettesister Dawn September 05, 2024 3:19pm Advance Directive Response Recorded Date/ Time Living Will Yes July 11, 2024 11:00am Do you have a Healthcare Pow er of Land Title Examiner? Yes July 11, 2024 11:00am Name of Medical Power of Land Title Examiner . July 11, 2024 11:00am Do you have a Healthcare Pow er of Land Title Examiner? Yes September 05, 2024 3:19pm Name of Medical Power of Land Title Examiner Jeanettesister Dawn September 05, 2024 3:19pm Do you have a Healthcare Pow er of Land Title Examiner? Yes October 23, 2024 9:19am Advance Directive Response Recorded Date/ Time Living Will Yes July 11, 2024 11:00am Do you have a Healthcare Pow er of Land Title Examiner? Yes July 11, 2024 11:00am Name of Medical Power of Land Title Examiner . July 11, 2024 11:00am Do you have a Healthcare Pow er of Land Title Examiner? Yes November 07, 2024 11:36am Name of Medical Power of Land Title Examiner jeanette evita er November 07, 2024 11:36am Do you have a Healthcare Pow er of Land Title Examiner? Yes September 05, 2024 3:19pm Name of Medical Power of Land Title Examiner sister Valdes September 05, 2024 3:19pm Do you have a Healthcare Pow er of Land Title Examiner? Yes October 23, 2024 9:19am Advance Directive Response Recorded Date/ Time Living Will Yes July 11, 2024 11:00am Do you have a Healthcare Pow er of Land Title Examiner? Yes July 11, 2024 11:00am Name of Medical Power of Land Title Examiner . July 11, 2024 11:00am Do you have a Healthcare Pow er of Land Title Examiner? Yes November 07, 2024 4:28pm Name of Medical Power of Land Title Examiner jeanettelesley laoting er November 07, 2024 4:28pm Do you have a Healthcare Pow er of Land Title Examiner? Yes September 05, 2024 3:19pm Name of Medical Power of Land Title Examiner sister Valdes September 05, 2024 3:19pm Do you have a Healthcare Pow er of Land Title Examiner? Yes October 23, 2024 9:19am Date Activated Date Inactivated Comments 08/19/2024 3:56 PM 08/21/2024 6:00 PM Date Activated Date Inactivated Comments 01/11/2024 5:29 PM 07/24/2024 8:46 AM Date Activated Date Inactivated Comments 09/08/2023 10:55 PM 09/27/2023 5:15 PM Question Answer Comments Full Code Order Discussed With: Patient Advance Directive Response Recorded Date/ Time Do you have a Healthcare Pow er of Land Title Examiner? Yes November 07, 2024 4:28pm Name of Medical Power of Land Title Examiner jeanette shiloting er November 07, 2024 4:28pm Do you have a Healthcare Pow er of Land Title Examiner? Yes September 05, 2024 3:19pm Name of Medical Power of Land Title Examiner sister Valdes September 05, 2024 3:19pm Do you have a Healthcare Pow er of Land Title Examiner? Yes October 23, 2024 9:19am Do you have a Healthcare Pow er of Land Title Examiner? No November 20, 2024 9:45pm Date Activated Date Inactivated Comments 11/21/2024 2:54 AM Date Activated Date Inactivated Comments 08/19/2024 3:56 PM 08/21/2024 6:00 PM Date Activated Date Inactivated Comments 01/11/2024 5:29 PM 07/24/2024 8:46 AM Date Activated Date Inactivated Comments 09/08/2023 10:55 PM 09/27/2023 5:15 PM Question Answer Comments Full Code Order Discussed With: Patient Chief Complaint and Reason for Visit Chief Complaint NEED ORDER Chief Complaint Admit Date N/V/D April 08, 2024 2 :35pm n/v July 11, 2024 10: 59am Chief Complaint Admit Date n/v July 11, 2024 10: 59am ABD PAIN; STAGE 2 CEALCAL ADENOCARCINOMA September 04, 2024 3:29pm post surg abd pain September 13, 2024 8:10 am Reason for Visit Admit Date Anxiety September 04, 2024 3:29 pm Colon cancer September 04, 2024 3:29 pm Debility September 04, 2024 3:29 pm Depression September 04, 2024 3:29 pm GERD (gastroesophageal reflux disease) [facility] 2024 3:29pm Osteoporosis September 04, 2024 3:29 pm Seizure disorder September 04, 2024 3:29 pm Hypokalemia September 04, 2024 3:29 pm Chief Complaint Admit Date n/v July 11, 2024 10: 59am ABD PAIN; STAGE 2 CEALCAL ADENOCARCINOMA September 04, 2024 3:29pm post surg abd pain September 13, 2024 8:10 am FEMERAL NERVE WEAKNESS, RX BEING FAXED J dion 2024 8:30am N/V/D October 23, 2024 9:17 am Chief Complaint Admit Date n/v July 11, 2024 10: 59am ABD PAIN; STAGE 2 CEALCAL ADENOCARCINOMA September 04, 2024 3:29pm post surg abd pain September 13, 2024 8:10 am FEMERAL NERVE WEAKNESS, RX BEING FAXED J dion 2024 8:30am N/V/D October 23, 2024 9:17 am ABDOMINAL PAIN, COLITIS, LIVER LESIONS A ugust 2024 3:14pm Reason for Visit Admit Date Anxiety September 04, 2024 3:29 pm Colon cancer September 04, 2024 3:29 pm Debility September 04, 2024 3:29 pm Depression September 04, 2024 3:29 pm GERD (gastroesophageal reflux disease) J une 2024 3:29pm Osteoporosis September 04, 2024 3:29 pm Seizure disorder September 04, 2024 3:29 pm Hypokalemia September 04, 2024 3:29 pm Abdominal pain November 07, 2024 3: 14pm Chief Complaint Admit Date ABD PAIN; STAGE 2 CEALCAL ADENOCARCINOMA September 04, 2024 3:29pm post surg abd pain September 13, 2024 8:10 am FEMERAL NERVE WEAKNESS, RX BEING FAXED Patrica ashley 2024 8:30am N/V/D October 23, 2024 9:17 am ABDOMINAL PAIN, COLITIS, LIVER LESIONS A ugust 2024 3:14pm ABDOMINAL PAIN, COLITIS, LIVER LESIONS A ugust 2024 11:31am STEMI November 20, 2024 9: 44pm Chief Complaint Admit Date ABD PAIN; STAGE 2 CEALCAL ADENOCARCINOMA September 04, 2024 3:29pm post surg abd pain September 13, 2024 8:10 am FEMERAL NERVE WEAKNESS, RX BEING FAXED Patrica ashley 2024 8:30am N/V/D October 23, 2024 9:17 am ABDOMINAL PAIN, COLITIS, LIVER LESIONS A ugust 2024 3:14pm ABDOMINAL PAIN, COLITIS, LIVER LESIONS A ugust 2024 11:31am STEMI November 20, 2024 9: 44pm STEMI November 20, 2024 10 :01pm Reason for Referral Specialty Diagnoses / Procedures Referred By Contac t Referred To Contact Diagnoses Focal epilepsy (HCC) Procedures PROVIDER ORDERED FOLLOW UP [facility] Ashly Lange, SIX PACK LOADER OPERATOR.BALL THREAD MACHINE TENDER [address] [place] [id number] Referral ID Status Reason Start Date Expiration Date Visits Requested Visits Authorized [id number] Authorized PCP Requested Referral 10/02/2023 07/31/2024 1 1 Specialty Diagnoses / Procedures Referred By Contac t Referred To Contact Nutrition Diagnoses Inflammatory bowel disease Perforated appendix Severe protein-calorie malnutrition (HCC) Procedures CONSULT TO NUTRITION THERAPY MEDICAL NUTRITION ASSMT&IVNTJ INDIV EACH 15 MS Roseanna Maldonado MD [address] [place] [address] Referral ID Status Reason Start Date Expiration Date Visits Requested Visits Authorized [id number] Authorized PCP Requested Referral 10/11/2023 10/10/2024 1 4 Specialty Diagnoses / Procedures Referred By Contac t Referred To Contact General Surgery Diagnoses Perforated appendix Procedures CONSULT TO GENERAL SURGERY OFFICE[facility] 60 [facility]UTES Rose[facility]donado [facility] [address] [facility] [place] [id number] Referral ID Status Reason Start Date Expiration Date Visits Requested Visits Authorized [id number] Authorized PCP Requested Referral 10/11/2023 10/10/2024 1 1 Specialty Diagnoses / Procedures Referred By Contac t Referred To Contact CT IMAGING Diagnoses Inflammatory bowel disease Perforated appendix Procedures CT ENTEROGRAPHY W IVCON CT ABD & PELVIS W/CONTRAST Roseanna [facility]donado MD [address] [facility] [place] [id number] [facility] Imaging [place] [address] Referral ID Status Reason Start Date Expiration Date Visits Requested Visits Authorized [id number] Pending Review Auto-Generat ed Referral 10/11/2023 11/09/2024 1 1 Specialty Diagnoses / Procedures Referred By Contac t Referred To Contact Neurology Diagnoses Focal epilepsy (HCC) Procedures CON[facility]UR[facility] OFF[facility]UTES Dajuan Card, SIX PACK LOADER OPERATOR.BALL THREAD MACHINE TENDER [address] [place] [address] Referral ID Status Reason Start Date Expiration Date Visits Requested Visits Authorized [id number] Authorized PCP Requested Referral 10/23/2023 10/22/2024 1 1 Specialty Diagnoses / Procedures Referred By Contac t Referred To Contact Pulmonary Disease Diagnoses Lung nodule Procedures CONSULT TO LUNG NODULE CLINIC OFFICE[facility]UTES Amish Xavier, SIX PACK LOADER OPERATOR.BALL THREAD MACHINE TENDER [address] [place] [address] Referral ID Status Reason Start Date Expiration Date Visits Requested Visits Authorized [id number] Authorized PCP Requested Referral 12/04/2023 12/03/2024 1 1 Specialty Diagnoses / Procedures Referred By Contac t Referred To Contact Diagnoses Perforated appendix Procedures REFER TO P[facility] / [facility] - PREOPERATIVE OPTIMIZATION [facility] 60 MINUTES Tessa Spring MD [address] [place] [address] Referral ID Status Reason Start Date Expiration Date Visits Requested Visits Authorized [id number] Authorized PCP Requested Referral 12/18/2023 12/17/2024 1 1 Specialty Diagnoses / Procedures Referred By Contac t Referred To Contact Oncology Diagnoses Malignant neoplasm of ascending colon (HCC) Procedures CONSULT TO ONCOLOGY OFFICE/OUTPATIENT [facility] 60 [place] [address] [place] [address] [place] [address] [place] [address] Referral ID Status Reason Start Date Expiration Date Visits Requested Visits Authorized [id number] Authorized PCP Requested Referral 4 01/17/2025 1 1 Specialty Diagnoses / Procedures Referred By Contac t Referred To Contact CT IMAGING Diagnoses Intra-abdominal and pelvic swelling, mass and lump, unspecified site Procedures CT CHEST WO IVCON DIAGNOSTIC COMPUTED TOMOGRAPHY THORAX W/O CNTRST Tessa Spring MD [address] [place] [address] Ct Imaging [place] [address] Referral ID Status Reason Start Date Expiration Date Visits Requested Visits Authorized [id number] Authorized Auto-Generat ed Referral 02/16/2025 1 1 Specialty Diagnoses / Procedures Referred By Contac t Referred To Contact CT IMAGING Diagnoses Right lower quadrant abdominal pain Procedures CT ABD/PEL W IVCON CT ABD & PELVIS W/CONTRAST Tessa Spring MD [address] [place] [phone] Imaging [place] [address] Referral ID Status Reason Start Date Expiration Date Visits Requested Visits Authorized [id number] Authorized Auto-Generat ed Referral 4 04/06/2025 1 1 Specialty Diagnoses / Procedures Referred By Allen t Referred To Contact CT IMAGING Diagnoses Lung nodules Procedures CT CHEST WO IVCON DIAGNOSTIC COMPUTED TOMOGRAPHY THORAX W/O CNTRST Fe Edmond, LETI.BALL THREAD MACHINE TENDER [address] [place] [id number] Imaging [id number] Referral ID Status Reason Start Date Expiration Date Visits Requested Visits Authorized [id number] New Request Auto-Generat ed Referral 04/27/2024 04/18/2025 1 1 Additional Source Comments INFORMATION SOURCE (unrecogn ized section and content) DATE CREATED AUTHOR 11/30/2019 [facility] DATE CREATED AUTHOR AUTHOR'S ORGANIZ ATION 11/01/2022 [facility] DATE CREATED AUTHOR AUTHOR'S ORGANIZ ATION 12/30/2023 [facility] DATE CREATED AUTHOR AUTHOR'S ORGANIZ ATION 10/11/2024 [facility] DATE CREATED AUTHOR AUTHOR'S ORGANIZ ATION 10/21/2024 [facility] DATE CREATED AUTHOR AUTHOR'S ORGANIZ ATION 11/22/2024 [facility] DATE CREATED AUTHOR AUTHOR'S ORGANIZ ATION 11/22/2024 [facility] DATE CREATED AUTHOR AUTHOR'S ORGANIZ ATION 11/24/2024 [facility] Source Comments (unrecognize d section and content) In the event this informatio n is protected by the Federal Confidentiality of Alcohol and Drug Abuse Patient Records regulations: The Federal rules restrict any use of the information to criminally investigate or prosecute any alcohol or drug abuse patient.[facility] the event this information is protected by the Federal Confidentiality of Alcohol and Drug Abuse Patient Records regulations: The Federal rules restrict any use of the information to criminally investigate or prosecute any alcohol or drug abuse patient.[facility]In the event this information is protected by the Federal Confidentiality of Alcohol and Drug Abuse Patient Records regulations: The Federal rules restrict any use of the information to criminally investigate or prosecute any alcohol or drug abuse patient.[facility] the event this information is protected by the Federal Confidentiality of Alcohol and Drug Abuse Patient Records regulations: The Federal rules restrict any use of the information to criminally investigate or prosecute any alcohol or drug abuse patient.[facility] the event this information is protected by the Federal Confidentiality of Alcohol and Drug Abuse Patient Records regulations: The Federal rules restrict any use of the information to criminally investigate or prosecute any alcohol or drug abuse patient.[facility]In the event this information is protected by the Federal Confidentiality of Alcohol and Drug Abuse Patient Records regulations: The Federal rules restrict any use of the information to criminally investigate or prosecute any alcohol or drug abuse patient.[facility]In the event this information is protected by the Federal Confidentiality of Alcohol and Drug Abuse Patient Records regulations: The Federal rules restrict any use of the information to criminally investigate or prosecute any alcohol or drug abuse patient.[facility] HospitalIn the event this information is protected by the Federal Confidentiality of Alcohol and Drug Abuse Patient Records regulations: The Federal rules restrict any use of the information to criminally investigate or prosecute any alcohol or drug abuse patient.[facility] HospitalIn the event this information is protected by the Federal Confidentiality of Alcohol and Drug Abuse Patient Records regulations: The Federal rules restrict any use of the information to criminally investigate or prosecute any alcohol or drug abuse patient.[facility] HospitalIn the event this information is protected by the Federal Confidentiality of Alcohol and Drug Abuse Patient Records regulations: The Federal rules restrict any use of the information to criminally investigate or prosecute any alcohol or drug abuse patient.[facility] HospitalIn the event this information is protected by the Federal Confidentiality of Alcohol and Drug Abuse Patient Records regulations: The Federal rules restrict any use of the information to criminally investigate or prosecute any alcohol or drug abuse patient.[facility] HospitalIn the event this information is protected by the Federal Confidentiality of Alcohol and Drug Abuse Patient Records regulations: The Federal rules restrict any use of the information to criminally investigate or prosecute any alcohol or drug abuse patient.[facility] HospitalIn the event this information is protected by the Federal Confidentiality of Alcohol and Drug Abuse Patient Records regulations: The Federal rules restrict any use of the information to criminally investigate or prosecute any alcohol or drug abuse patient.[facility] HospitalIn the event this information is protected by the Federal Confidentiality of Alcohol and Drug Abuse Patient Records regulations: The Federal rules restrict any use of the information to criminally investigate or prosecute any alcohol or drug abuse patient.[facility] HospitalIn the event this information is protected by the Federal Confidentiality of Alcohol and Drug Abuse Patient Records regulations: The Federal rules restrict any use of the information to criminally investigate or prosecute any alcohol or drug abuse patient.[facility] HospitalIn the event this information is protected by the Federal Confidentiality of Alcohol and Drug Abuse Patient Records regulations: The Federal rules restrict any use of the information to criminally investigate or prosecute any alcohol or drug abuse patient.[facility] HospitalIn the event this information is protected by the Federal Confidentiality of Alcohol and Drug Abuse Patient Records regulations: The Federal rules restrict any use of the information to criminally investigate or prosecute any alcohol or drug abuse patient.[facility] HospitalIn the event this information is protected by the Federal Confidentiality of Alcohol and Drug Abuse Patient Records regulations: The Federal rules restrict any use of the information to criminally investigate or prosecute any alcohol or drug abuse patient.[facility] HospitalIn the event this information is protected by the Federal Confidentiality of Alcohol and Drug Abuse Patient Records regulations: The Federal rules restrict any use of the information to criminally investigate or prosecute any alcohol or drug abuse patient.[facility] HospitalIn the event this information is protected by the Federal Confidentiality of Alcohol and Drug Abuse Patient Records regulations: The Federal rules restrict any use of the information to criminally investigate or prosecute any alcohol or drug abuse patient.[facility] HospitalIn the event this information is protected by the Federal Confidentiality of Alcohol and Drug Abuse Patient Records regulations: The Federal rules restrict any use of the information to criminally investigate or prosecute any alcohol or drug abuse patient.[facility] HospitalIn the event this information is protected by the Federal Confidentiality of Alcohol and Drug Abuse Patient Records regulations: The Federal rules restrict any use of the information to criminally investigate or prosecute any alcohol or drug abuse patient.[facility] HospitalIn the event this information is protected by the Federal Confidentiality of Alcohol and Drug Abuse Patient Records regulations: The Federal rules restrict any use of the information to criminally investigate or prosecute any alcohol or drug abuse patient.[facility] HospitalIn the event this information is protected by the Federal Confidentiality of Alcohol and Drug Abuse Patient Records regulations: The Federal rules restrict any use of the information to criminally investigate or prosecute any alcohol or drug abuse patient.[facility] HospitalIn the event this information is protected by the Federal Confidentiality of Alcohol and Drug Abuse Patient Records regulations: The Federal rules restrict any use of the information to criminally investigate or prosecute any alcohol or drug abuse patient.[facility] HospitalIn the event this information is protected by the Federal Confidentiality of Alcohol and Drug Abuse Patient Records regulations: The Federal rules restrict any use of the information to criminally investigate or prosecute any alcohol or drug abuse patient.[facility] HospitalIn the event this information is protected by the Federal Confidentiality of Alcohol and Drug Abuse Patient Records regulations: The Federal rules restrict any use of the information to criminally investigate or prosecute any alcohol or drug abuse patient.[facility] HospitalIn the event this information is protected by the Federal Confidentiality of Alcohol and Drug Abuse Patient Records regulations: The Federal rules restrict any use of the information to criminally investigate or prosecute any alcohol or drug abuse patient.[facility] HospitalIn the event this information is protected by the Federal Confidentiality of Alcohol and Drug Abuse Patient Records regulations: The Federal rules restrict any use of the information to criminally investigate or prosecute any alcohol or drug abuse patient.[facility] HospitalIn the event this information is protected by the Federal Confidentiality of Alcohol and Drug Abuse Patient Records regulations: The Federal rules restrict any use of the information to criminally investigate or prosecute any alcohol or drug abuse patient.[facility] HospitalIn the event this information is protected by the Federal Confidentiality of Alcohol and Drug Abuse Patient Records regulations: The Federal rules restrict any use of the information to criminally investigate or prosecute any alcohol or drug abuse patient.[facility] HospitalIn the event this information is protected by the Federal Confidentiality of Alcohol and Drug Abuse Patient Records regulations: The Federal rules restrict any use of the information to criminally investigate or prosecute any alcohol or drug abuse patient.[facility] HospitalIn the event this information is protected by the Federal Confidentiality of Alcohol and Drug Abuse Patient Records regulations: The Federal rules restrict any use of the information to criminally investigate or prosecute any alcohol or drug abuse patient.[facility] HospitalIn the event this information is protected by the Federal Confidentiality of Alcohol and Drug Abuse Patient Records regulations: The Federal rules restrict any use of the information to criminally investigate or prosecute any alcohol or drug abuse patient.[facility] HospitalIn the event this information is protected by the Federal Confidentiality of Alcohol and Drug Abuse Patient Records regulations: The Federal rules restrict any use of the information to criminally investigate or prosecute any alcohol or drug abuse patient.[facility] HospitalIn the event this information is protected by the Federal Confidentiality of Alcohol and Drug Abuse Patient Records regulations: The Federal rules restrict any use of the information to criminally investigate or prosecute any alcohol or drug abuse patient.[facility] HospitalIn the event this information is protected by the Federal Confidentiality of Alcohol and Drug Abuse Patient Records regulations: The Federal rules restrict any use of the information to criminally investigate or prosecute any alcohol or drug abuse patient.[facility] HospitalIn the event this information is protected by the Federal Confidentiality of Alcohol and Drug Abuse Patient Records regulations: The Federal rules restrict any use of the information to criminally investigate or prosecute any alcohol or drug abuse patient.[facility] HospitalIn the event this information is protected by the Federal Confidentiality of Alcohol and Drug Abuse Patient Records regulations: The Federal rules restrict any use of the information to criminally investigate or prosecute any alcohol or drug abuse patient.[facility] HospitalIn the event this information is protected by the Federal Confidentiality of Alcohol and Drug Abuse Patient Records regulations: The Federal rules restrict any use of the information to criminally investigate or prosecute any alcohol or drug abuse patient.[facility] HospitalIn the event this information is protected by the Federal Confidentiality of Alcohol and Drug Abuse Patient Records regulations: The Federal rules restrict any use of the information to criminally investigate or prosecute any alcohol or drug abuse patient.[facility] HospitalIn the event this information is protected by the Federal Confidentiality of Alcohol and Drug Abuse Patient Records regulations: The Federal rules restrict any use of the information to criminally investigate or prosecute any alcohol or drug abuse patient.[facility] HospitalIn the event this information is protected by the Federal Confidentiality of Alcohol and Drug Abuse Patient Records regulations: The Federal rules restrict any use of the information to criminally investigate or prosecute any alcohol or drug abuse patient.[facility] HospitalIn the event this information is protected by the Federal Confidentiality of Alcohol and Drug Abuse Patient Records regulations: The Federal rules restrict any use of the information to criminally investigate or prosecute any alcohol or drug abuse patient.[facility] HospitalIn the event this information is protected by the Federal Confidentiality of Alcohol and Drug Abuse Patient Records regulations: The Federal rules restrict any use of the information to criminally investigate or prosecute any alcohol or drug abuse patient.[facility] HospitalIn the event this information is protected by the Federal Confidentiality of Alcohol and Drug Abuse Patient Records regulations: The Federal rules restrict any use of the information to criminally investigate or prosecute any alcohol or drug abuse patient.[facility] HospitalIn the event this information is protected by the Federal Confidentiality of Alcohol and Drug Abuse Patient Records regulations: The Federal rules restrict any use of the information to criminally investigate or prosecute any alcohol or drug abuse patient.[facility] HospitalIn the event this information is protected by the Federal Confidentiality of Alcohol and Drug Abuse Patient Records regulations: The Federal rules restrict any use of the information to criminally investigate or prosecute any alcohol or drug abuse patient.[facility] HospitalIn the event this information is protected by the Federal Confidentiality of Alcohol and Drug Abuse Patient Records regulations: The Federal rules restrict any use of the information to criminally investigate or prosecute any alcohol or drug abuse patient.[facility] HospitalIn the event this information is protected by the Federal Confidentiality of Alcohol and Drug Abuse Patient Records regulations: The Federal rules restrict any use of the information to criminally investigate or prosecute any alcohol or drug abuse patient.[facility] HospitalIn the event this information is protected by the Federal Confidentiality of Alcohol and Drug Abuse Patient Records regulations: The Federal rules restrict any use of the information to criminally investigate or prosecute any alcohol or drug abuse patient.[facility] HospitalIn the event this information is protected by the Federal Confidentiality of Alcohol and Drug Abuse Patient Records regulations: The Federal rules restrict any use of the information to criminally investigate or prosecute any alcohol or drug abuse patient.[facility] HospitalIn the event this information is protected by the Federal Confidentiality of Alcohol and Drug Abuse Patient Records regulations: The Federal rules restrict any use of the information to criminally investigate or prosecute any alcohol or drug abuse patient.[facility] HospitalIn the event this information is protected by the Federal Confidentiality of Alcohol and Drug Abuse Patient Records regulations: The Federal rules restrict any use of the information to criminally investigate or prosecute any alcohol or drug abuse patient.[facility] HospitalIn the event this information is protected by the Federal Confidentiality of Alcohol and Drug Abuse Patient Records regulations: The Federal rules restrict any use of the information to criminally investigate or prosecute any alcohol or drug abuse patient.[facility] HospitalIn the event this information is protected by the Federal Confidentiality of Alcohol and Drug Abuse Patient Records regulations: The Federal rules restrict any use of the information to criminally investigate or prosecute any alcohol or drug abuse patient.[facility] HospitalIn the event this information is protected by the Federal Confidentiality of Alcohol and Drug Abuse Patient Records regulations: The Federal rules restrict any use of the information to criminally investigate or prosecute any alcohol or drug abuse patient.[facility] HospitalIn the event this information is protected by the Federal Confidentiality of Alcohol and Drug Abuse Patient Records regulations: The Federal rules restrict any use of the information to criminally investigate or prosecute any alcohol or drug abuse patient.[facility] HospitalIn the event this information is protected by the Federal Confidentiality of Alcohol and Drug Abuse Patient Records regulations: The Federal rules restrict any use of the information to criminally investigate or prosecute any alcohol or drug abuse patient.[facility] HospitalIn the event this information is protected by the Federal Confidentiality of Alcohol and Drug Abuse Patient Records regulations: The Federal rules restrict any use of the information to criminally investigate or prosecute any alcohol or drug abuse patient.[facility] HospitalIn the event this information is protected by the Federal Confidentiality of Alcohol and Drug Abuse Patient Records regulations: The Federal rules restrict any use of the information to criminally investigate or prosecute any alcohol or drug abuse patient.[facility] HospitalIn the event this information is protected by the Federal Confidentiality of Alcohol and Drug Abuse Patient Records regulations: The Federal rules restrict any use of the information to criminally investigate or prosecute any alcohol or drug abuse patient.[facility] HospitalIn the event this information is protected by the Federal Confidentiality of Alcohol and Drug Abuse Patient Records regulations: The Federal rules restrict any use of the information to criminally investigate or prosecute any alcohol or drug abuse patient.[facility] HospitalIn the event this information is protected by the Federal Confidentiality of Alcohol and Drug Abuse Patient Records regulations: The Federal rules restrict any use of the information to criminally investigate or prosecute any alcohol or drug abuse patient.[facility] HospitalIn the event this information is protected by the Federal Confidentiality of Alcohol and Drug Abuse Patient Records regulations: The Federal rules restrict any use of the information to criminally investigate or prosecute any alcohol or drug abuse patient.[facility] HospitalIn the event this information is protected by the Federal Confidentiality of Alcohol and Drug Abuse Patient Records regulations: The Federal rules restrict any use of the information to criminally investigate or prosecute any alcohol or drug abuse patient.[facility] HospitalIn the event this information is protected by the Federal Confidentiality of Alcohol and Drug Abuse Patient Records regulations: The Federal rules restrict any use of the information to criminally investigate or prosecute any alcohol or drug abuse patient.[facility] HospitalIn the event this information is protected by the Federal Confidentiality of Alcohol and Drug Abuse Patient Records regulations: The Federal rules restrict any use of the information to criminally investigate or prosecute any alcohol or drug abuse patient.[facility] HospitalIn the event this information is protected by the Federal Confidentiality of Alcohol and Drug Abuse Patient Records regulations: The Federal rules restrict any use of the information to criminally investigate or prosecute any alcohol or drug abuse patient.[facility] HospitalIn the event this information is protected by the Federal Confidentiality of Alcohol and Drug Abuse Patient Records regulations: The Federal rules restrict any use of the information to criminally investigate or prosecute any alcohol or drug abuse patient.[facility] HospitalIn the event this information is protected by the Federal Confidentiality of Alcohol and Drug Abuse Patient Records regulations: The Federal rules restrict any use of the information to criminally investigate or prosecute any alcohol or drug abuse patient.[facility] HospitalIn the event this information is protected by the Federal Confidentiality of Alcohol and Drug Abuse Patient Records regulations: The Federal rules restrict any use of the information to criminally investigate or prosecute any alcohol or drug abuse patient.[facility]In the event this information is protected by the Federal Confidentiality of Alcohol and Drug Abuse Patient Records regulations: The Federal rules restrict any use of the information to criminally investigate or prosecute any alcohol or drug abuse patient.[facility] HospitalIn the event this information is protected by the Federal Confidentiality of Alcohol and Drug Abuse Patient Records regulations: The Federal rules restrict any use of the information to criminally investigate or prosecute any alcohol or drug abuse patient.[facility]In the event this information is protected by the Federal Confidentiality of Alcohol and Drug Abuse Patient Records regulations: The Federal rules restrict any use of the information to criminally investigate or prosecute any alcohol or drug abuse patient.[facility] HospitalIn the event this information is protected by the Federal Confidentiality of Alcohol and Drug Abuse Patient Records regulations: The Federal rules restrict any use of the information to criminally investigate or prosecute any alcohol or drug abuse patient.[facility] HospitalIn the event this information is protected by the Federal Confidentiality of Alcohol and Drug Abuse Patient Records regulations: The Federal rules restrict any use of the information to criminally investigate or prosecute any alcohol or drug abuse patient.[facility] HospitalIn the event this information is protected by the Federal Confidentiality of Alcohol and Drug Abuse Patient Records regulations: The Federal rules restrict any use of the information to criminally investigate or prosecute any alcohol or drug abuse patient.[facility]In the event this information is protected by the Federal Confidentiality of Alcohol and Drug Abuse Patient Records regulations: The Federal rules restrict any use of the information to criminally investigate or prosecute any alcohol or drug abuse patient.[facility]In the event this information is protected by the Federal Confidentiality of Alcohol and Drug Abuse Patient Records regulations: The Federal rules restrict any use of the information to criminally investigate or prosecute any alcohol or drug abuse patient.[facility]In the event this information is protected by the Federal Confidentiality of Alcohol and Drug Abuse Patient Records regulations: The Federal rules restrict any use of the information to criminally investigate or prosecute any alcohol or drug abuse patient.[facility]In the event this information is protected by the Federal Confidentiality of Alcohol and Drug Abuse Patient Records regulations: The Federal rules restrict any use of the information to criminally investigate or prosecute any alcohol or drug abuse patient.[facility]In the event this information is protected by the Federal Confidentiality of Alcohol and Drug Abuse Patient Records regulations: The Federal rules restrict any use of the information to criminally investigate or prosecute any alcohol or drug abuse patient.[facility]In the event this information is protected by the Federal Confidentiality of Alcohol and Drug Abuse Patient Records regulations: The Federal rules restrict any use of the information to criminally investigate or prosecute any alcohol or drug abuse patient.[facility]In the event this information is protected by the Federal Confidentiality of Alcohol and Drug Abuse Patient Records regulations: The Federal rules restrict any use of the information to criminally investigate or prosecute any alcohol or drug abuse patient.[facility]In the event this information is protected by the Federal Confidentiality of Alcohol and Drug Abuse Patient Records regulations: The Federal rules restrict any use of the information to criminally investigate or prosecute any alcohol or drug abuse patient.[facility]In the event this information is protected by the Federal Confidentiality of Alcohol and Drug Abuse Patient Records regulations: The Federal rules restrict any use of the information to criminally investigate or prosecute any alcohol or drug abuse patient.[facility]In the event this information is protected by the Federal Confidentiality of Alcohol and Drug Abuse Patient Records regulations: The Federal rules restrict any use of the information to criminally investigate or prosecute any alcohol or drug abuse patient.[facility]In the event this information is protected by the Federal Confidentiality of Alcohol and Drug Abuse Patient Records regulations: The Federal rules restrict any use of the information to criminally investigate or prosecute any alcohol or drug abuse patient.[facility]In the event this information is protected by the Federal Confidentiality of Alcohol and Drug Abuse Patient Records regulations: The Federal rules restrict any use of the information to criminally investigate or prosecute any alcohol or drug abuse patient.[facility]In the event this information is protected by the Federal Confidentiality of Alcohol and Drug Abuse Patient Records regulations: The Federal rules restrict any use of the information to criminally investigate or prosecute any alcohol or drug abuse patient.[facility]In the event this information is protected by the Federal Confidentiality of Alcohol and Drug Abuse Patient Records regulations: The Federal rules restrict any use of the information to criminally investigate or prosecute any alcohol or drug abuse patient.[facility] HospitalIn the event this information is protected by the Federal Confidentiality of Alcohol and Drug Abuse Patient Records regulations: The Federal rules restrict any use of the information to criminally investigate or prosecute any alcohol or drug abuse patient.[facility] HospitalIn the event this information is protected by the Federal Confidentiality of Alcohol and Drug Abuse Patient Records regulations: The Federal rules restrict any use of the information to criminally investigate or prosecute any alcohol or drug abuse patient.[facility] HospitalIn the event this information is protected by the Federal Confidentiality of Alcohol and Drug Abuse Patient Records regulations: The Federal rules restrict any use of the information to criminally investigate or prosecute any alcohol or drug abuse patient.[facility] HospitalIn the event this information is protected by the Federal Confidentiality of Alcohol and Drug Abuse Patient Records regulations: The Federal rules restrict any use of the information to criminally investigate or prosecute any alcohol or drug abuse patient.[facility] HospitalIn the event this information is protected by the Federal Confidentiality of Alcohol and Drug Abuse Patient Records regulations: The Federal rules restrict any use of the information to criminally investigate or prosecute any alcohol or drug abuse patient.[facility] HospitalIn the event this information is protected by the Federal Confidentiality of Alcohol and Drug Abuse Patient Records regulations: The Federal rules restrict any use of the information to criminally investigate or prosecute any alcohol or drug abuse patient.[facility] HospitalIn the event this information is protected by the Federal Confidentiality of Alcohol and Drug Abuse Patient Records regulations: The Federal rules restrict any use of the information to criminally investigate or prosecute any alcohol or drug abuse patient.[facility] HospitalIn the event this information is protected by the Federal Confidentiality of Alcohol and Drug Abuse Patient Records regulations: The Federal rules restrict any use of the information to criminally investigate or prosecute any alcohol or drug abuse patient.[facility] HospitalIn the event this information is protected by the Federal Confidentiality of Alcohol and Drug Abuse Patient Records regulations: The Federal rules restrict any use of the information to criminally investigate or prosecute any alcohol or drug abuse patient.[facility] HospitalIn the event this information is protected by the Federal Confidentiality of Alcohol and Drug Abuse Patient Records regulations: The Federal rules restrict any use of the information to criminally investigate or prosecute any alcohol or drug abuse patient.[facility] HospitalIn the event this information is protected by the Federal Confidentiality of Alcohol and Drug Abuse Patient Records regulations: The Federal rules restrict any use of the information to criminally investigate or prosecute any alcohol or drug abuse patient.[facility] HospitalIn the event this information is protected by the Federal Confidentiality of Alcohol and Drug Abuse Patient Records regulations: The Federal rules restrict any use of the information to criminally investigate or prosecute any alcohol or drug abuse patient.[facility] HospitalIn the event this information is protected by the Federal Confidentiality of Alcohol and Drug Abuse Patient Records regulations: The Federal rules restrict any use of the information to criminally investigate or prosecute any alcohol or drug abuse patient.[facility] HospitalIn the event this information is protected by the Federal Confidentiality of Alcohol and Drug Abuse Patient Records regulations: The Federal rules restrict any use of the information to criminally investigate or prosecute any alcohol or drug abuse patient.[facility] HospitalIn the event this information is protected by the Federal Confidentiality of Alcohol and Drug Abuse Patient Records regulations: The Federal rules restrict any use of the information to criminally investigate or prosecute any alcohol or drug abuse patient.[facility] HospitalIn the event this information is protected by the Federal Confidentiality of Alcohol and Drug Abuse Patient Records regulations: The Federal rules restrict any use of the information to criminally investigate or prosecute any alcohol or drug abuse patient.[facility] HospitalIn the event this information is protected by the Federal Confidentiality of Alcohol and Drug Abuse Patient Records regulations: The Federal rules restrict any use of the information to criminally investigate or prosecute any alcohol or drug abuse patient.[facility] HospitalIn the event this information is protected by the Federal Confidentiality of Alcohol and Drug Abuse Patient Records regulations: The Federal rules restrict any use of the information to criminally investigate or prosecute any alcohol or drug abuse patient.[facility] HospitalIn the event this information is protected by the Federal Confidentiality of Alcohol and Drug Abuse Patient Records regulations: The Federal rules restrict any use of the information to criminally investigate or prosecute any alcohol or drug abuse patient.[facility] HospitalIn the event this information is protected by the Federal Confidentiality of Alcohol and Drug Abuse Patient Records regulations: The Federal rules restrict any use of the information to criminally investigate or prosecute any alcohol or drug abuse patient.[facility] HospitalIn the event this information is protected by the Federal Confidentiality of Alcohol and Drug Abuse Patient Records regulations: The Federal rules restrict any use of the information to criminally investigate or prosecute any alcohol or drug abuse patient.[facility] HospitalIn the event this information is protected by the Federal Confidentiality of Alcohol and Drug Abuse Patient Records regulations: The Federal rules restrict any use of the information to criminally investigate or prosecute any alcohol or drug abuse patient.[facility] HospitalIn the event this information is protected by the Federal Confidentiality of Alcohol and Drug Abuse Patient Records regulations: The Federal rules restrict any use of the information to criminally investigate or prosecute any alcohol or drug abuse patient.[facility] HospitalIn the event this information is protected by the Federal Confidentiality of Alcohol and Drug Abuse Patient Records regulations: The Federal rules restrict any use of the information to criminally investigate or prosecute any alcohol or drug abuse patient.[facility] HospitalIn the event this information is protected by the Federal Confidentiality of Alcohol and Drug Abuse Patient Records regulations: The Federal rules restrict any use of the information to criminally investigate or prosecute any alcohol or drug abuse patient.[facility] HospitalIn the event this information is protected by the Federal Confidentiality of Alcohol and Drug Abuse Patient Records regulations: The Federal rules restrict any use of the information to criminally investigate or prosecute any alcohol or drug abuse patient.[facility] HospitalIn the event this information is protected by the Federal Confidentiality of Alcohol and Drug Abuse Patient Records regulations: The Federal rules restrict any use of the information to criminally investigate or prosecute any alcohol or drug abuse patient.[facility] HospitalIn the event this information is protected by the Federal Confidentiality of Alcohol and Drug Abuse Patient Records regulations: The Federal rules restrict any use of the information to criminally investigate or prosecute any alcohol or drug abuse patient.[facility] HospitalIn the event this information is protected by the Federal Confidentiality of Alcohol and Drug Abuse Patient Records regulations: The Federal rules restrict any use of the information to criminally investigate or prosecute any alcohol or drug abuse patient.[facility] HospitalIn the event this information is protected by the Federal Confidentiality of Alcohol and Drug Abuse Patient Records regulations: The Federal rules restrict any use of the information to criminally investigate or prosecute any alcohol or drug abuse patient.[facility] HospitalIn the event this information is protected by the Federal Confidentiality of Alcohol and Drug Abuse Patient Records regulations: The Federal rules restrict any use of the information to criminally investigate or prosecute any alcohol or drug abuse patient.[facility] HospitalIn the event this information is protected by the Federal Confidentiality of Alcohol and Drug Abuse Patient Records regulations: The Federal rules restrict any use of the information to criminally investigate or prosecute any alcohol or drug abuse patient.[facility] HospitalIn the event this information is protected by the Federal Confidentiality of Alcohol and Drug Abuse Patient Records regulations: The Federal rules restrict any use of the information to criminally investigate or prosecute any alcohol or drug abuse patient.[facility] HospitalIn the event this information is protected by the Federal Confidentiality of Alcohol and Drug Abuse Patient Records regulations: The Federal rules restrict any use of the information to criminally investigate or prosecute any alcohol or drug abuse patient.[facility] HospitalIn the event this information is protected by the Federal Confidentiality of Alcohol and Drug Abuse Patient Records regulations: The Federal rules restrict any use of the information to criminally investigate or prosecute any alcohol or drug abuse patient.[facility] HospitalIn the event this information is protected by the Federal Confidentiality of Alcohol and Drug Abuse Patient Records regulations: The Federal rules restrict any use of the information to criminally investigate or prosecute any alcohol or drug abuse patient.[facility] HospitalIn the event this information is protected by the Federal Confidentiality of Alcohol and Drug Abuse Patient Records regulations: The Federal rules restrict any use of the information to criminally investigate or prosecute any alcohol or drug abuse patient.[facility] HospitalIn the event this information is protected by the Federal Confidentiality of Alcohol and Drug Abuse Patient Records regulations: The Federal rules restrict any use of the information to criminally investigate or prosecute any alcohol or drug abuse patient.[facility] HospitalIn the event this information is protected by the Federal Confidentiality of Alcohol and Drug Abuse Patient Records regulations: The Federal rules restrict any use of the information to criminally investigate or prosecute any alcohol or drug abuse patient.[facility] HospitalIn the event this information is protected by the Federal Confidentiality of Alcohol and Drug Abuse Patient Records regulations: The Federal rules restrict any use of the information to criminally investigate or prosecute any alcohol or drug abuse patient.[facility] HospitalIn the event this information is protected by the Federal Confidentiality of Alcohol and Drug Abuse Patient Records regulations: The Federal rules restrict any use of the information to criminally investigate or prosecute any alcohol or drug abuse patient.[facility] HospitalIn the event this information is protected by the Federal Confidentiality of Alcohol and Drug Abuse Patient Records regulations: The Federal rules restrict any use of the information to criminally investigate or prosecute any alcohol or drug abuse patient.[facility] HospitalIn the event this information is protected by the Federal Confidentiality of Alcohol and Drug Abuse Patient Records regulations: The Federal rules restrict any use of the information to criminally investigate or prosecute any alcohol or drug abuse patient.[facility] HospitalIn the event this information is protected by the Federal Confidentiality of Alcohol and Drug Abuse Patient Records regulations: The Federal rules restrict any use of the information to criminally investigate or prosecute any alcohol or drug abuse patient.[facility] HospitalIn the event this information is protected by the Federal Confidentiality of Alcohol and Drug Abuse Patient Records regulations: The Federal rules restrict any use of the information to criminally investigate or prosecute any alcohol or drug abuse patient.[facility] HospitalIn the event this information is protected by the Federal Confidentiality of Alcohol and Drug Abuse Patient Records regulations: The Federal rules restrict any use of the information to criminally investigate or prosecute any alcohol or drug abuse patient.[facility] HospitalIn the event this information is protected by the Federal Confidentiality of Alcohol and Drug Abuse Patient Records regulations: The Federal rules restrict any use of the information to criminally investigate or prosecute any alcohol or drug abuse patient.[facility] HospitalIn the event this information is protected by the Federal Confidentiality of Alcohol and Drug Abuse Patient Records regulations: The Federal rules restrict any use of the information to criminally investigate or prosecute any alcohol or drug abuse patient.[facility] HospitalIn the event this information is protected by the Federal Confidentiality of Alcohol and Drug Abuse Patient Records regulations: The Federal rules restrict any use of the information to criminally investigate or prosecute any alcohol or drug abuse patient.[facility] HospitalIn the event this information is protected by the Federal Confidentiality of Alcohol and Drug Abuse Patient Records regulations: The Federal rules restrict any use of the information to criminally investigate or prosecute any alcohol or drug abuse patient.[facility] HospitalIn the event this information is protected by the Federal Confidentiality of Alcohol and Drug Abuse Patient Records regulations: The Federal rules restrict any use of the information to criminally investigate or prosecute any alcohol or drug abuse patient.[facility] HospitalIn the event this information is protected by the Federal Confidentiality of Alcohol and Drug Abuse Patient Records regulations: The Federal rules restrict any use of the information to criminally investigate or prosecute any alcohol or drug abuse patient.[facility] HospitalIn the event this information is protected by the Federal Confidentiality of Alcohol and Drug Abuse Patient Records regulations: The Federal rules restrict any use of the information to criminally investigate or prosecute any alcohol or drug abuse patient.[facility] HospitalIn the event this information is protected by the Federal Confidentiality of Alcohol and Drug Abuse Patient Records regulations: The Federal rules restrict any use of the information to criminally investigate or prosecute any alcohol or drug abuse patient.[facility] HospitalIn the event this information is protected by the Federal Confidentiality of Alcohol and Drug Abuse Patient Records regulations: The Federal rules restrict any use of the information to criminally investigate or prosecute any alcohol or drug abuse patient.[facility] HospitalIn the event this information is protected by the Federal Confidentiality of Alcohol and Drug Abuse Patient Records regulations: The Federal rules restrict any use of the information to criminally investigate or prosecute any alcohol or drug abuse patient.[facility] HospitalIn the event this information is protected by the Federal Confidentiality of Alcohol and Drug Abuse Patient Records regulations: The Federal rules restrict any use of the information to criminally investigate or prosecute any alcohol or drug abuse patient.[facility] HospitalIn the event this information is protected by the Federal Confidentiality of Alcohol and Drug Abuse Patient Records regulations: The Federal rules restrict any use of the information to criminally investigate or prosecute any alcohol or drug abuse patient.[facility] HospitalIn the event this information is protected by the Federal Confidentiality of Alcohol and Drug Abuse Patient Records regulations: The Federal rules restrict any use of the information to criminally investigate or prosecute any alcohol or drug abuse patient.[facility] HospitalIn the event this information is protected by the Federal Confidentiality of Alcohol and Drug Abuse Patient Records regulations: The Federal rules restrict any use of the information to criminally investigate or prosecute any alcohol or drug abuse patient.[facility] HospitalIn the event this information is protected by the Federal Confidentiality of Alcohol and Drug Abuse Patient Records regulations: The Federal rules restrict any use of the information to criminally investigate or prosecute any alcohol or drug abuse patient.[facility] HospitalIn the event this information is protected by the Federal Confidentiality of Alcohol and Drug Abuse Patient Records regulations: The Federal rules restrict any use of the information to criminally investigate or prosecute any alcohol or drug abuse patient.[facility] HospitalIn the event this information is protected by the Federal Confidentiality of Alcohol and Drug Abuse Patient Records regulations: The Federal rules restrict any use of the information to criminally investigate or prosecute any alcohol or drug abuse patient.[facility] HospitalIn the event this information is protected by the Federal Confidentiality of Alcohol and Drug Abuse Patient Records regulations: The Federal rules restrict any use of the information to criminally investigate or prosecute any alcohol or drug abuse patient.[facility] HospitalIn the event this information is protected by the Federal Confidentiality of Alcohol and Drug Abuse Patient Records regulations: The Federal rules restrict any use of the information to criminally investigate or prosecute any alcohol or drug abuse patient.[facility] HospitalIn the event this information is protected by the Federal Confidentiality of Alcohol and Drug Abuse Patient Records regulations: The Federal rules restrict any use of the information to criminally investigate or prosecute any alcohol or drug abuse patient.[facility] HospitalIn the event this information is protected by the Federal Confidentiality of Alcohol and Drug Abuse Patient Records regulations: The Federal rules restrict any use of the information to criminally investigate or prosecute any alcohol or drug abuse patient.[facility] HospitalIn the event this information is protected by the Federal Confidentiality of Alcohol and Drug Abuse Patient Records regulations: The Federal rules restrict any use of the information to criminally investigate or prosecute any alcohol or drug abuse patient.[facility] HospitalIn the event this information is protected by the Federal Confidentiality of Alcohol and Drug Abuse Patient Records regulations: The Federal rules restrict any use of the information to criminally investigate or prosecute any alcohol or drug abuse patient.[facility] HospitalIn the event this information is protected by the Federal Confidentiality of Alcohol and Drug Abuse Patient Records regulations: The Federal rules restrict any use of the information to criminally investigate or prosecute any alcohol or drug abuse patient.[facility] HospitalIn the event this information is protected by the Federal Confidentiality of Alcohol and Drug Abuse Patient Records regulations: The Federal rules restrict any use of the information to criminally investigate or prosecute any alcohol or drug abuse patient.[facility] HospitalIn the event this information is protected by the Federal Confidentiality of Alcohol and Drug Abuse Patient Records regulations: The Federal rules restrict any use of the information to criminally investigate or prosecute any alcohol or drug abuse patient.[facility] HospitalIn the event this information is protected by the Federal Confidentiality of Alcohol and Drug Abuse Patient Records regulations: The Federal rules restrict any use of the information to criminally investigate or prosecute any alcohol or drug abuse patient.[facility] Reason for Visit (unrecogniz ed section and content) Reason Comments New Patient Specialty Diagnoses / Procedures Referred By Contac t Referred To Contact Oncology Diagnoses Malignant neoplasm of ascending colon (HCC) Procedures CONSULT TO [facility] OFFICE[facility] 60 [place] [address] [id number] [place] [address] [address] [id number] Referral ID Status Reason Start Date Expiration Date V isits Requested Visits Authorized [id number] Closed PCP Requested Referral 01/18/2024 01/17/2025 1 1 Specialty Diagnoses / Procedures Referred By Contac t Referred To Contact Pulmonary Disease Diagnoses Lung nodule Procedures CONSULT TO LUNG NODULE CLINIC OFFICE[facility] 60 [facility]UTES Amish Xavier, SIX PACK LOADER OPERATOR.BALL THREAD MACHINE TENDER [address] [place] [address] Referral ID Status Reason Start Date Expiration Date V isits Requested Visits Authorized [id number] Closed PCP Requested Referral 12/04/2023 12/03/2024 1 1 Reason Comments Epilepsy Follow Up Reason Comments Outside Labs Results [facility] Reason Comments Seizures Reason Comments Outside Lab Results Reason Comments Other Lab orders faxed Reason Onset Date Comments Refill Request 05/08/2023 Reason Comments Orders Lab Reason Comments Seizures Reason Comments Medication Concern Depakote Reason Comments medication concern Medication concern Reason Comments Post Op Follow Up Hospital follow-up Reason Comments Follow Up Reason Comments New Patient 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 Reason Comments Established Patient Specialty Diagnoses / Procedures Referred By [facility] Referred To Contact [facility] Diagnoses Focal epilepsy (HCC) Procedures PROVIDER ORDERED FOLLOW UP [facility]ICE[facility] 60 MINUTES Ashly Lange, LETI.BALL THREAD MACHINE TENDER [address] [place] [address] [facility] [place] [address] Referral ID Status Reason Start Date Expiration Date Visits Requested Visits Authorized [id number] Authorized Financial Clearance Required - Self Pay Patient Cleared - CCN Request Cancelled - Pre Qualified for HCAP/501R/FA or Patient Payment Collected Patient Cleared - Qualified [id number] 10/17/2023 01/15/2024 99 [phone] Reason Comments Appointment Reason Comments Consult Perforated appendix Specialty Diagnoses / Procedures Referred By [facility] Referred To Contact General Surgery Diagnoses Perforated appendix Procedures CONSULT TO GENERAL SURGERY OFFICE[facility] 60 MINUTES Roseanna Maldonado MD [address] [id number] Referral ID Status Reason Start Date Expiration Date V isits Requested Visits Authorized [id number] Closed PCP Requested Referral 10/11/2023 10/10/2024 1 1 Reason Comments Anesthesia Consult Reason Comments Patient Question Returning Patient's Call Pouncing Lathe Operator - Other Reason Comments Home Care CONFIRMATION CALL Reason Comments Home Care Md Reason Comments Nausea vomitting Pouncing Lathe Operator - Other Returning Patient's Call Reason Comments Home Care Spoke with patients friend and SOC confirmed for 01/11/24 Reason Comments Home Care Medication interacti on Reason Comments Patient Update Reason Comments New Patient Focal epilepsy Specialty Diagnoses / Procedures Referred By Contac t Referred To Contact Neurology Diagnoses Focal epilepsy (HCC) Procedures CONSULT TO NEUROLOGY OFFICE/OUTPATIENT NEW HIGH MDM 60 MINUTES Dajuan Card, SIX PACK LOADER OPERATOR.BALL THREAD MACHINE TENDER [address] [place] [address] Referral ID Status Reason Start Date Expiration Date V isits Requested Visits Authorized [id number] Closed PCP Requested Referral 10/23/2023 10/22/2024 1 1 Reason Comments Abdominal Mass Reason Comments Home Care Unmade PT visit Reason Comments Radiology CT Specialty Diagnoses / Procedures Referred By Contac t Referred To Contact CT IMAGING Diagnoses Intra-abdominal and pelvic swelling, mass and lump, unspecified site Procedures CT CHEST WO IVCON DIAGNOSTIC COMPUTED TOMOGRAPHY [facility] W/O CNTRST Tessa Spring MD [address] [place] [address] [facility] [place] [address] Referral ID Status Reason Start Date Expiration Date V isits Requested Visits Authorized [id number] Closed Auto-Generate d Referral 01/18/2024 02/16/2025 1 1 Reason Comments pain at surgry site Reason Onset Date Comments SPP Oral Oncology/hematology - Treatment Referra l 02/05/2024 capecitabine Insurance Authorization 02/05/2024 No PA ne eded Reason Comments Patient Question Reason Comments Care Coordination ORAL ANTI-CANCER AGE NTS EDUCATION Reason Comments Future Appointment Reason Onset Date Comments SPP Oral Oncology/hematology - Medication Refill 02/28/2024 capecitabine Reason Comments Care Coordination Specialty Diagnoses / Procedures Referred By Contac t Referred To Contact CT IMAGING Diagnoses Right lower quadrant abdominal pain Procedures CT ABD/PEL W IVCON CT ABD & PELVIS W/CONTRAST Tessa Spring MD [address] [place] [address] [facility] [place] [address] Referral ID Status Reason Start Date Expiration Date V isits Requested Visits Authorized [id number] Closed Auto-Generate d Referral 03/07/2024 04/06/2025 1 1 Specialty Diagnoses / Procedures Referred By Contac t Referred To Contact CT IMAGING Diagnoses Right lower quadrant abdominal pain Procedures CT ABD/PEL W IVCON CT ABD & PELVIS W/CONTRAST Tessa Spring MD [address] [place] [address] [facility] [place] [address] Reason Onset Date Comments SPP Oral Oncology/hematology - Medication Refill 03/21/2024 capecitabine Reason Comments Vomiting and diarrhea x 4 day s Reason Onset Date Comments research follow up 04/08/2024 Reason Onset Date Comments SPP Oral Oncology/hematology - Medication Refill 04/10/2024 capecitabine Reason Comments Cancer Surveillance Follow Up Reason Comments Established Patient Reason Onset Date Comments Refill Request 05/01/2024 Reason Onset Date Comments SPP Oral Oncology/hematology - Medication Refill 05/02/2024 capecitabine Specialty Diagnoses / Procedures Referred By Allen keen Referred To Contact CT IMAGING Diagnoses Lung nodules Procedures CT CHEST WO IVCON DIAGNOSTIC COMPUTED TOMOGRAPHY [facility]OR[facility] W/O CNTRST Fe Edmond APRN.BALL THREAD MACHINE TENDER [address] [place] [address] Phone: tel: fax: [facility] [place] [address] Referral ID Status Reason Start Date Expiration Date V isits Requested Visits Authorized [id number] Closed Auto-Generate d Referral 04/27/2024 04/18/2025 1 1 Reason Onset Date Comments SPP Oral Oncology/hematology - Medication Refill 05/22/2024 Capecitabine Reason Comments Care Coordination Dental Procedure Reason Onset Date Comments SPP Oral Oncology/hematology - Medication Refill 06/13/2024 capecitabine Reason Onset Date Comments Refill Request 02/09/2024 Reason Comments Refill Request Reason Comments Nutrition Assessment Reason Comments Patient Question Returning Patient's Call Reason Comments Medication Problem Reason Comments Social Work Services Reason Onset Date Comments Refill Request 07/31/2024 Reason Onset Date Comments SPP Oral Oncology/hematology - Medication Refill 08/07/2024 capecitabine Reason Comments Pouncing Lathe Operator - Hospital Follow Up Reason Comments Home Care MD to Follow Reason Comments Home Care CONFIRMATION CALL Reason Comments [id number] palliative care f/u Reason Comments Post Op Pouncing Lathe Operator - Other Returning Patient's Call Reason Comments Post Op Follow Up 08/28/24 ex lap, mass resection Reason Comments Symptom Management Reason Comments Pouncing Lathe Operator - Other Introduction Reason Comments AVS 7/ Reason Comments Art Therapy Referral Reason Comments Patient Question Pouncing Lathe Operator - Other Returning Patient's Call Reason Comments Blood Draw (CVAD) Reason Comments Chemotherapy Treatment Specialty Diagnoses / Procedures Referred By Allen t Referred To Contact Diagnoses Adenocarcinoma of cecum (HCC) Jimmie Poole MD [address] [place] [address] Phone: tel: Hematology/Oncology [address] [place] [address] Phone: tel: fax: Referral ID Status Reason Start Date Expiration Date V isits Requested Visits Authorized [id number] Authorized 10/09/2024 01/07/2025 99 99 Reason Comments Non-Chemotherapy Treatment Reason Comments Pouncing Lathe Operator - Other Returning Patient's Call Reason Onset Date Comments Refill Request 11/10/2024 Reason Comments Care Coordination Follow up Call Reason Comments [id number] Pallative Medicine Reason Comments Critical Care Transport Care Teams (unrecognized sec tion and content) Wringer And Setter Relationship Specialty Start Date End Date Mary Moss PCP - General Family Practice 05/28/18 Adrian Wallace DO Referring Neurology 11/13/18 Wringer And Setter Relationship Specialty Start Date End Date Mary Moss PCP - General Family Practice 05/28/18 Adrian Wallace DO Referring Neurology 11/13/18 Wringer And Setter Relationship Specialty Start Date End Date Mary Moss PCP - General Family Practice 05/28/18 Adrian Wallace DO Referring Neurology 11/13/18 Wringer And Setter Relationship Specialty Start Date End Date Mary Moss PCP - General Family Medicine 05/28/18 Adrian Wallace DO Referring Neurology 11/13/18 Wringer And Setter Relationship Specialty Start Date End Date Mary Moss PCP - General Family Medicine 05/28/18 Adrian Wallace DO Referring Neurology 11/13/18 Wringer And Setter Relationship Specialty Start Date End Date Mary Moss PCP - General Family Medicine 05/28/18 Adrian Wallace DO Referring Neurology 11/13/18 Team Status: Active Member Role Status Dates [facility] Family Provider Active [facility] Primary Care Provider A ctive Team Status: Inactive Member Role Status Dates [facility] Primary Care Provider A ctive CHRISTIE HYLTON MD Attending Provider, Referring Prov ider Active Wringer And Setter Relationship Specialty Start Date End Date Mary Moss PCP - General Family Medicine 05/28/18 Adrian Wallace DO Referring Neurology 11/13/18 Wringer And Setter Relationship Specialty Start Date End Date Mary Moss PCP - General Family Medicine 05/28/18 Adrian Wallace DO Referring Neurology 11/13/18 Wringer And Setter Relationship Specialty Start Date End Date Mary Moss PCP - General Family Medicine 05/28/18 Adrian Wallace DO Referring Neurology 11/13/18 Wringer And Setter Relationship Specialty Start Date End Date Mary Moss PCP - General Family Medicine 05/28/18 Adrian Wallace DO Referring Neurology 11/13/18 Wringer And Setter Relationship Specialty Start Date End Date Mary Moss PCP - General Family Medicine 05/28/18 Adrian Wallace DO Referring Neurology 11/13/18 Wringer And Setter Relationship Specialty Start Date End Date Mary Moss PCP - General Family Medicine 05/28/18 Adrian Wallace DO Referring Neurology 11/13/18 Wringer And Setter Relationship Specialty Start Date End Date Mary Moss PCP - General Family Medicine 05/28/18 Adrian Wallace DO Referring Neurology 11/13/18 Wringer And Setter Relationship Specialty Start Date End Date Mary Moss PCP - General Family Medicine 05/28/18 Adrian Wallace DO Referring Neurology 11/13/18 Wringer And Setter Relationship Specialty Start Date End Date Mary Moss PCP - General Family Medicine 05/28/18 Adrian Wallace DO Referring Neurology 11/13/18 Wringer And Setter Relationship Specialty Start Date End Date Mary Moss PCP - General Family Medicine 05/28/18 Adrian Wallace DO Referring Neurology 11/13/18 Wringer And Setter Relationship Specialty Start Date End Date Mary Moss PCP - General Family Medicine 05/28/18 Adrian Wallace DO Referring Neurology 11/13/18 Wringer And Setter Relationship Specialty Start Date End Date Mary Moss PCP - General Family Medicine 05/28/18 Adrian Wallace DO Referring Neurology 11/13/18 Wringer And Setter Relationship Specialty Start Date End Date Mary Moss PCP - General Family Medicine 05/28/18 Adrian Wallace DO Referring Neurology 11/13/18 Wringer And Setter Relationship Specialty Start Date End Date Mary Moss PCP - General Family Medicine 05/28/18 Adrian Wallace DO Referring Neurology 11/13/18 Wringer And Setter Relationship Specialty Start Date End Date Mary Moss PCP - General Family Medicine 05/28/18 Adrian Wallace DO Referring Neurology 11/13/18 Wringer And Setter Relationship Specialty Start Date End Date Mary Moss PCP - General Family Medicine 05/28/18 Adrian Wallace DO Referring Neurology 11/13/18 Wringer And Setter Relationship Specialty Start Date End Date Mary Moss PCP - General Family Medicine 05/28/18 Adrian Wallace DO Referring Neurology 11/13/18 Wringer And Setter Relationship Specialty Start Date End Date Mary Moss PCP - General Family Medicine 05/28/18 Adrian Wallace DO Referring Neurology 11/13/18 Wringer And Setter Relationship Specialty Start Date End Date Mary Moss PCP - General Family Medicine 05/28/18 Adrian Wallace DO Referring Neurology 11/13/18 Wringer And Setter Relationship Specialty Start Date End Date Mary Moss CNP PCP - General Family Medicine 05/28/18 Adrian Wallace DO Referring Neurology 11/13/18 Wringer And Setter Relationship Specialty Start Date End Date Mary Moss CNP PCP - General Family Medicine 05/28/18 Adrian Wallace DO Referring Neurology 11/13/18 Wringer And Setter Relationship Specialty Start Date End Date Mary Moss CNP PCP - General Family Medicine 05/28/18 Adrian Wallace DO Referring Neurology 11/13/18 Wringer And Setter Relationship Specialty Start Date End Date Mary Moss CNP PCP - General Family Medicine 05/28/18 Adrian Wallace DO Referring Neurology 11/13/18 Wringer And Setter Relationship Specialty Start Date End Date Mary Moss CNP PCP - General Family Medicine 05/28/18 Adrian Wallace DO Referring Neurology 11/13/18 [place] [address] [place] [address] Referring General Surgery 01/09/24 Christie Sánchez NP [address] [place] [address] Home Care Provider Family Medicine 01/09/24 Joe Williamson RN [address] [place] [address] Reinforcing Steel Machine Operator Post Acute Care 01/09/24 Wringer And Setter Relationship Specialty Start Date End Date Mary Moss CNP PCP - General Family Medicine 05/28/18 Adrian Wallace DO Referring Neurology 11/13/18 Braxton Knowles MD [address] [place] [address] Referring General Surgery 01/09/24 Christie Sánchez NP [address] [place] [address] Home Care Provider Family Medicine 01/09/24 Joe Williamson RN [address] [place] [address] Reinforcing Steel Machine Operator Post Acute Care 01/09/24 Wringer And Setter Relationship Specialty Start Date End Date Mary Moss CNP PCP - General Family Medicine 05/28/18 Adrian Wallace DO Referring Neurology 11/13/18 Braxton Knowles MD [address] [place] [address] Referring General Surgery 01/09/24 Christie Sánchez NP [address] [place], [place] [phone] Home Care Provider Family Medicine 01/09/24 Joe Williamson RN [address] [place] [address] Reinforcing Steel Machine Operator Post Acute Care 01/09/24 Wringer And Setter Relationship Specialty Start Date End Date Mary Moss CNP PCP - General Family Medicine 05/28/18 Adrian Wallace DO Referring Neurology 11/13/18 Braxton Knowles MD [address] [place] [address] Referring General Surgery 01/09/24 Christie Sánchez NP [address] [place], [place] [address] Home Care Provider Family Medicine 01/09/24 Joe Williamson RN [address] [place] [address] Reinforcing Steel Machine Operator Post Acute Care 01/09/24 Wringer And Setter Relationship Specialty Start Date End Date Mary Moss CNP PCP - General Family Medicine 05/28/18 Adrian Wallace DO Referring Neurology 11/13/18 Braxton Knowles MD [address] [place] [address] Referring General Surgery 01/09/24 Christie Sánchez NP [address] [place] [place] [phone] Home Care Provider Family Medicine 01/09/24 Joe Williamson RN [address] [place], [place] [phone] Reinforcing Steel Machine Operator Post Acute Care 01/09/24 Wringer And Setter Relationship Specialty Start Date End Date Mary Moss CNP PCP - General Family Medicine 05/28/18 Adrian Wallace DO Referring Neurology 11/13/18 Braxton Knowles MD [address] [place] [address] Referring General Surgery 01/09/24 Christie Sánchez NP [address] [place] [id number] Home Care Provider Family Medicine 01/09/24 Joe Williamson RN [address] [place], [place] [id number] Reinforcing Steel Machine Operator Post Acute Care 01/09/24 Wringer And Setter Relationship Specialty Start Date End Date Mary Moss CNP PCP - General Family Medicine 05/28/18 Adrian Wallace DO Referring Neurology 11/13/18 Braxton Knowles MD [address] [place] [address] Referring General Surgery 01/09/24 Christie Sánchez NP [address] [place], [place] [phone] Home Care Provider Family Medicine 01/09/24 Joe Williamson RN [address] [place] [address] Reinforcing Steel Machine Operator Post Acute Care 01/09/24 Wringer And Setter Relationship Specialty Start Date End Date Mary Moss CNP PCP - General Family Medicine 05/28/18 Adrian Wallace DO Referring Neurology 11/13/18 Braxton Knowles MD [address] [place] [address] Referring General Surgery 01/09/24 Christie Sánchez NP [address] [place] [place] [phone] Home Care Provider Family Medicine 01/09/24 Joe Williamson RN [address] [place], [place] [id number] Reinforcing Steel Machine Operator Post Acute Care 01/09/24 Wringer And Setter Relationship Specialty Start Date End Date Mary Moss CNP PCP - General Family Medicine 05/28/18 Adrian Wallace DO Referring Neurology 11/13/18 Braxton Knowles MD [address] [place] [address] Referring General Surgery 01/09/24 Christie Sánchez NP [address] [place] [place] [id number] Home Care Provider Family Medicine 01/09/24 Joe Williamson RN [address] [place], [place] [phone] Reinforcing Steel Machine Operator Post Acute Care 01/09/24 Wringer And Setter Relationship Specialty Start Date End Date Mary Moss CNP PCP - General Family Medicine 05/28/18 Adrian Wallace DO Referring Neurology 11/13/18 Braxton Knowles MD [address] [place] [address] Referring General Surgery 01/09/24 Christie Sánchez NP [address] [place] [address] Home Care Provider Family Medicine 01/09/24 Joe Williamson RN [address] [place], [place] [phone] Reinforcing Steel Machine Operator Post Acute Care 01/09/24 Wringer And Setter Relationship Specialty Start Date End Date Mary Moss CNP PCP - General Family Medicine 05/28/18 Adrian Wallace DO Referring Neurology 11/13/18 Wringer And Setter Relationship Specialty Start Date End Date Mary Moss CNP PCP - General Family Medicine 05/28/18 Adrian Wallace DO Referring Neurology 11/13/18 Braxton Knowles MD [address] [place] [address] Referring General Surgery 01/09/24 Christie Sánchez NP [address] [place] [address] Home Care Provider Family Medicine 01/09/24 Joe Williamson RN [address] [place], [place] [id number] Reinforcing Steel Machine Operator Post Acute Care 01/09/24 Wringer And Setter Relationship Specialty Start Date End Date Mary Moss CNP PCP - General Family Medicine 05/28/18 Adrian Wallace DO Referring Neurology 11/13/18 [place] [address] [place], [place] [phone] Referring General Surgery 01/09/24 Christie Sánchez NP [address] [place] [address] Home Care Provider Family Medicine 01/09/24 Joe Williamson RN [address] [place], [place] [id number] Reinforcing Steel Machine Operator Post Acute Care 01/09/24 Wringer And Setter Relationship Specialty Start Date End Date Mary Moss CNP PCP - General Family Medicine 05/28/18 Adrian Wallace DO Referring Neurology 11/13/18 Braxton Knowles MD [address] [place] [address] Referring General Surgery 01/09/24 Christie Sánchez NP [address] [place] [address] Home Care Provider Family Medicine 01/09/24 Joe Williamson RN [address] [place], [place] [id number] Reinforcing Steel Machine Operator 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 Care 01/09/24 Wringer And Setter Relationship Specialty Start Date End Date Mary Moss CNP PCP - General Family Medicine 05/28/18 Adrian Wallace DO Referring Neurology 11/13/18 Braxton Knowles MD [address] [place] [address] Referring General Surgery 01/09/24 Christie Sánchez NP [address] [place] [address] Home Care Provider Family Medicine 01/09/24 Joe Williamson RN [address] [place], [place] [id number] Reinforcing Steel Machine Operator Post Acute Care 01/09/24 Wringer And Setter Relationship Specialty Start Date End Date Mary Moss CNP PCP - General Family Medicine 05/28/18 Adrian Wallace DO Referring Neurology 11/13/18 rBaxton Knowles MD [address] [place] [address] Referring General Surgery 01/09/24 Christie Sánchez NP [address] [place] [address] Home Care Provider Family Medicine 01/09/24 Joe Williamson, REAL [address] [place], [place] [id number] Reinforcing Steel Machine Operator Post Acute Care 01/09/24 Tessa Spring MD [address] [place] [address] General Surgery 02/01/24 Wringer And Setter Relationship Specialty Start Date End Date Mary Moss CNP PCP - General Family Medicine 05/28/18 Adrian Wallace DO Referring Neurology 11/13/18 Braxton Knowles MD [address] [place] [address] Referring General Surgery 01/09/24 Christie Sánchez NP [address] [place], [place] 849811 Home Care Provider Family Medicine 01/09/24 Joe Williamson, REAL [address] [place], [place] [phone] Reinforcing Steel Machine Operator Post Acute Care 01/09/24 Tessa Spring MD [address] [place] [address] General Surgery 02/01/24 Wringer And Setter Relationship Specialty Start Date End Date Mary Moss CNP PCP - General Family Medicine 05/28/18 Adrian Wallace DO Referring Neurology 11/13/18 Braxton Knowles MD [address] [place] [address] Referring General Surgery 01/09/24 Christie Sánchez NP [address] [place] [address] [phone] Home Care Provider Family Medicine 01/09/24 Joe Williamson RN [address] [place] [address] Reinforcing Steel Machine Operator Post Acute Care 01/09/24 Tessa Spring MD [address] [place], [place] [phone] General Surgery 02/01/24 Wringer And Setter Relationship Specialty Start Date End Date Mary Moss, LUZMA PCP - General Family Medicine 05/28/18 Adrian Wallace DO Referring Neurology 11/13/18 Braxton Knowles MD [address] [place] [address] Referring General Surgery 01/09/24 Christie Sánchez [place] [address] [place] [address] Home Care Provider Family Medicine 01/09/24 Joe Williamson RN [address] [place] [address] Reinforcing Steel Machine Operator Post Acute Care 01/09/24 Tessa Spring MD [address] [place] [address] General Surgery 02/01/24 Wringer And Setter Relationship Specialty Start Date End Date Mary Moss CNP PCP - General Family Medicine 05/28/18 Adrian Wallace DO Referring Neurology 11/13/18 Braxton Knowles MD [address] [place] [address] Referring General Surgery 01/09/24 Christie Sánchez NP [address] [place] [address] Home Care Provider Family Medicine 01/09/24 Joe Williamson, RN [address] [place] [address] Reinforcing Steel Machine Operator Post Acute Care 01/09/24 Tessa Spring MD [address] [place] [address] General Surgery 02/01/24 Wringer And Setter Relationship Specialty Start Date End Date Mary Moss CNP PCP - General Family Medicine 05/28/18 Adrian Wallace DO Referring Neurology 11/13/18 Braxton Knowles MD [address] [place] [address] Referring General Surgery 01/09/24 Christie Sánchez NP [address] [place] [address] Home Care Provider Family Medicine 01/09/24 Tessa Spring MD [address] [place] [phone] General Surgery 02/01/24 Wringer And Setter Relationship Specialty Start Date End Date Mary Moss CNP PCP - General Family Medicine 05/28/18 Adrian aWllace DO Referring Neurology 11/13/18 Braxton Knowles MD [address] [place] [address] Referring General Surgery 01/09/24 Christie Sánchez [place] [address] [place] [address] Home Care Provider Family Medicine 01/09/24 [place] [address] [place] [address] General Surgery 02/01/24 Wringer And Setter Relationship Specialty Start Date End Date Mary Moss CNP PCP - General Family Medicine 05/28/18 Adrian Wallace DO Referring Neurology 11/13/18 Braxton Knowles MD [address] [place], [place] [phone] Referring General Surgery 01/09/24 Christie Sánchez NP [address] [place] [address] Home Care Provider Family Medicine 01/09/24 Tessa Spring MD [address] [place] [phone] General Surgery 02/01/24 Wringer And Setter Relationship Specialty Start Date End Date Mary Moss CNP PCP - General Family Medicine 05/28/18 Adrian Wallace DO Referring Neurology 11/13/18 Braxton Knowles MD [address] [place] [address] Referring General Surgery 01/09/24 Christie Sánchez NP [address] [place] [address] Home Care Provider Family Medicine 01/09/24 Tessa Spring MD [address] [place] [address] General Surgery 02/01/24 Wringer And Setter Relationship Specialty Start Date End Date Mary Moss CNP PCP - General Family Medicine 05/28/18 Adrian Wallace DO Referring Neurology 11/13/18 Braxton Knowles MD [address] [place] [address] Referring General Surgery 01/09/24 Christie Sánchez NP [address] [place], [place] 286291 Home Care Provider Family Medicine 01/09/24 Tessa Spring MD [address] [place] [address] General Surgery 02/01/24 Amber Valverde LISW [address] [place] [address] Tool Trouble Shooter Hematology/Oncology 02/19/24 Wringer And Setter Relationship Specialty Start Date End Date Mary Moss, BALL THREAD MACHINE TENDER PCP - General Family Medicine 05/28/18 Adrian Wallace DO Referring Neurology 11/13/18 Braxton Knowles MD [address] [place] [address] Referring General Surgery 01/09/24 Christie Sánchez NP [address] [place], [place] 788511 Home Care Provider Family Medicine 01/09/24 Tessa Spring MD [address] [place], [place] [phone] General Surgery 02/01/24 Abmer Valverde LISW [address] [place] [address] Tool Trouble Shooter Hematology/Oncology 02/19/24 Jimmie Poole MD [address] [place] [address] Hematology/Oncology 02/21/24 Kate Castillo, REAL [address] [place] [address] Specialty Pouncing Lathe Operator Hematology/Oncology 02/21/24 Wringer And Setter Relationship Specialty Start Date End Date Mary Moss CNP PCP - General Family Medicine 05/28/18 Adrian Wallace DO Referring Neurology 11/13/18 Braxton Knowles MD [address] [place] [phone] Referring General Surgery 01/09/24 Christie Sánchez NP [address] [place] [address] Home Care Provider Family Medicine 01/09/24 Tessa Spring MD [address] [place] [address] General Surgery 02/01/24 Amber Valverde LISW [address] [place] [address] Tool Trouble Shooter Hematology/Oncology 02/19/24 Jimmie Poole MD [address] [place] [address] Hematology/Oncology 02/21/24 Kate Castillo, REAL [address] [place] [address] Specialty Pouncing Lathe Operator Hematology/Oncology 02/21/24 Wringer And Setter Relationship Specialty Start Date End Date Mary Moss CNP PCP - General Family Medicine 05/28/18 Adrian Wallace DO Referring Neurology 11/13/18 Braxton Knowles MD [address] [place] [address] Referring General Surgery 01/09/24 Christie Sánchez NP [address] [place], [place] [address] Home Care Provider Family Medicine 01/09/24 Tessa Spring MD [address] [place], [place] [phone] General Surgery 02/01/24 Amber Valverde LISW [address] [place] [address] Tool Trouble Shooter Hematology/Oncology 02/19/24 Jimmie Poole MD [address] [place] [address] Hematology/Oncology 02/21/24 Kate Castillo, REAL [address] [place] [address] Specialty Pouncing Lathe Operator Hematology/Oncology 02/21/24 Wringer And Setter Relationship Specialty Start Date End Date Mary Moss CNP PCP - General Family Medicine 05/28/18 Adrian Wallace DO Referring Neurology 11/13/18 Braxton Knowles MD [address] [place] [phone] Referring General Surgery 01/09/24 Christie Sánchez NP [address] [place], [place] [phone] Home Care Provider Family Medicine 01/09/24 Joe Williamson, REAL [address] [place] [address] Reinforcing Steel Machine Operator Post Acute Care 01/09/24 Wringer And Setter Relationship Specialty Start Date End Date Mary Moss CNP PCP - General Family Medicine 05/28/18 Adrian Wallace DO Referring Neurology 11/13/18 Braxton Knowles MD [address] [place] [address] Referring General Surgery 01/09/24 Christie Sánchez NP [address] [place] [phone] Home Care Provider Family Medicine 01/09/24 Tessa Spring MD [address] [place] [address] General Surgery 02/01/24 Amber Valverde LISW [address] [place] [address] Tool Trouble Shooter Hematology/Oncology 02/19/24 Jimmie Poole MD [address] [place] [address] Hematology/Oncology 02/21/24 Kate Castillo RN [address] [place], [place] [address] Specialty Pouncing Lathe Operator Hematology/Oncology 02/21/24 Wringer And Setter Relationship Specialty Start Date End Date Mary Moss CNP PCP - General Family Medicine 05/28/18 Adrian Wallace DO Referring Neurology 11/13/18 Braxton Knowles MD [address] [place] [address] Referring General Surgery 01/09/24 Christie Sánchez NP [address] [facility] [place], [place] [address] Home Care Provider Family Medicine 01/09/24 Tessa Spring MD [address] [place] [address] General Surgery 02/01/24 Amber Valverde LISW [address] [place] [address] Tool Trouble Shooter Hematology/Oncology 02/19/24 Jimmie Poole MD [address] [place] [address] Hematology/Oncology 02/21/24 Kate Castillo, REAL [address] [place] [address] Specialty Pouncing Lathe Operator Hematology/Oncology 02/21/24 Wringer And Setter Relationship Specialty Start Date End Date Mary Moss CNP PCP - General Family Medicine 05/28/18 Adrian Wallace DO Referring Neurology 11/13/18 Braxton Knowles MD [address] [id number] Referring General Surgery 01/09/24 Christie Sánchez NP [address] [place], [place] 134291 Home Care Provider Family Medicine 01/09/24 Tessa Spring MD [address] [id number] General Surgery 02/01/24 Amber Valverde LISW [address] [place] [address] Tool Trouble Shooter Hematology/Oncology 02/19/24 Jimmie Poole MD [address] [place] [address] Hematology/Oncology 02/21/24 Kate Castillo, REAL [address] [place] [address] Specialty Pouncing Lathe Operator Hematology/Oncology 02/21/24 Wringer And Setter Relationship Specialty Start Date End Date Mary Moss CNP PCP - General Family Medicine 05/28/18 Adrian Wallace DO Referring Neurology 11/13/18 Braxton Knowles MD [address] [place] [address] Referring General Surgery 01/09/24 Christie Sánchez NP [address] [place], [place] 780351 Home Care Provider Family Medicine 01/09/24 Tessa Spring MD [address] [place], [place] [id number] General Surgery 02/01/24 Amber Valverde LISW [address] [place] [address] Tool Trouble Shooter Hematology/Oncology 02/19/24 Jimmie Poole MD [address] [place] [address] Hematology/Oncology 02/21/24 Kate Castillo, REAL [address] [place] [address] Specialty Pouncing Lathe Operator Hematology/Oncology 02/21/24 Wringer And Setter Relationship Specialty Start Date End Date Mary Moss CNP PCP - General Family Medicine 05/28/18 Adrian Wallace DO Referring Neurology 11/13/18 [place] [address] [place] [address] Referring General Surgery 01/09/24 Christie Sánchez NP [address] [place], [place] [id number] Home Care Provider Family Medicine 01/09/24 Tessa Spring MD [address] [place] [address] General Surgery 02/01/24 Amber Valverde LISW [address] [facility] [place] [address] Tool Trouble Shooter Hematology/Oncology 02/19/24 Jimmie Poole MD [address] [place] [address] Hematology/Oncology 02/21/24 Kate Castillo RN [address] [place] [address] Specialty Pouncing Lathe Operator Hematology/Oncology 02/21/24 Wringer And Setter Relationship Specialty Start Date End Date Mary Moss CNP PCP - General Family Medicine 05/28/18 Adrian Wallace DO Referring Neurology 11/13/18 Braxton Knowles MD [address] [place] [address] Referring General Surgery 01/09/24 Christie Sánchez NP [address] [place] [address] Home Care Provider Family Medicine 01/09/24 Tessa Spring MD 0 [place] [address] General Surgery 02/01/24 Amber Valverde LISW [address] [place] [address] Tool Trouble Shooter Hematology/Oncology 02/19/24 Jimmie Poole MD [address] [place] [address] Hematology/Oncology 02/21/24 Kate Castillo, REAL [address] [place] [address] Specialty Pouncing Lathe Operator Hematology/Oncology 02/21/24 Wringer And Setter Relationship Specialty Start Date End Date Mary Moss, BALL THREAD MACHINE TENDER PCP - General Family Medicine 05/28/18 Adrian Wallace DO Referring Neurology 11/13/18 Braxton Knowles MD [address] [phone] Referring General Surgery 01/09/24 Christie Sánchez NP [address] [place] [address] Home Care Provider Family Medicine 01/09/24 Tessa Spring MD [address] [place] [address] General Surgery 02/01/24 Amber Valverde LISW [address] [place] [address] Tool Trouble Shooter Hematology/Oncology 02/19/24 Jimmie Poole MD [address] [place] [address] Hematology/Oncology 02/21/24 Kate Castillo, REAL [address] [place] [address] Specialty Pouncing Lathe Operator Hematology/Oncology 02/21/24 Wringer And Setter Relationship Specialty Start Date End Date Mary Moss CNP PCP - General Family Medicine 05/28/18 Adrian Wallace DO Referring Neurology 11/13/18 Braxton Knowles MD [address] [place] [address] Referring General Surgery 01/09/24 Christie Sánchez NP [address] [place] [address] Home Care Provider Family Medicine 01/09/24 Tessa Spring MD [address] [place] [address] General Surgery 02/01/24 Amber Valverde LISW [address] [place] [address] Tool Trouble Shooter Hematology/Oncology 02/19/24 Jimmie Poole MD [address] [place] [address] Hematology/Oncology 02/21/24 Kate Castillo, REAL [address] [place] [address] Specialty Pouncing Lathe Operator Hematology/Oncology 02/21/24 Wringer And Setter Relationship Specialty Start Date End Date Mary Moss CNP PCP - General Family Medicine 05/28/18 Adrian Wallace DO Referring Neurology 11/13/18 Braxton Knowles MD [address] [place] [address] Referring General Surgery 01/09/24 Christie Sánchez NP [address] [place] [address] Home Care Provider Family Medicine 01/09/24 Tessa Spring MD [address] [place] [address] General Surgery 02/01/24 Amber Valverde LISW [address] [place] [address] Tool Trouble Shooter Hematology/Oncology 02/19/24 Jimmie Poole MD [address] [place] [address] Hematology/Oncology 02/21/24 Kate Castillo RN [address] [place] [address] Specialty Pouncing Lathe Operator Hematology/Oncology 02/21/24 Wringer And Setter Relationship Specialty Start Date End Date Christie Sánchez [place] [address] [place] [address] PCP - General Family Medicine 04/16/24 Adrian Wallace DO Referring Neurology 11/13/18 Braxton Knowles MD [address] [place] [address] Referring General Surgery 01/09/24 Christie Sánchez NP [address] [place] [address] Home Care Provider Family Medicine 01/09/24 Tessa Spring MD [address] [place] [address] General Surgery 02/01/24 Amber Valverde LISW [address] [place] [address] Tool Trouble Shooter Hematology/Oncology 02/19/24 Jimmie Poole MD [address] [place], [place] 331191 Hematology/Oncology 02/21/24 Kate Castillo RN [address] [place] [address] Specialty Pouncing Lathe Operator Hematology/Oncology 02/21/24 Wringer And Setter Relationship Specialty Start Date End Date Christie Sánchez NP 9 [place] [address] PCP - General Family Medicine 04/16/24 Adrian Wallace DO Referring Neurology 11/13/18 Braxton Knowles MD [address] [place] [address] Referring General Surgery 01/09/24 Christie Sánchez NP [address] [place] [address] Home Care Provider Family Medicine 01/09/24 Tessa Spring MD [address] [place] [address] General Surgery 02/01/24 Amber Valverde LISW [address] [place] [address] Tool Trouble Shooter Hematology/Oncology 02/19/24 Jimmie Poole MD [address] [place] [address] Hematology/Oncology 02/21/24 Kate Castillo, REAL [address] [facility] [place] [address] Specialty Pouncing Lathe Operator Hematology/Oncology 02/21/24 Wringer And Setter Relationship Specialty Start Date End Date Christie Sánchez NP [address] [place] [address] PCP - General Family Medicine 04/16/24 Adrian Wallace DO Referring Neurology 11/13/18 Braxton Knowles MD [address] [place] [address] Referring General Surgery 01/09/24 Christie Sánchez NP [address] [place] [address] Home Care Provider Family Medicine 01/09/24 Tessa Spring MD [address] [place] [address] General Surgery 02/01/24 Amber Valverde LISW [address] [place] [address] Tool Trouble Shooter Hematology/Oncology 02/19/24 Jimmie Poole MD [address] [place] [address] Hematology/Oncology 02/21/24 Kate Castillo RN [address] [place], [place] [address] Specialty Pouncing Lathe Operator Hematology/Oncology 02/21/24 Wringer And Setter Relationship Specialty Start Date End Date Christie Sánchez NP [address] [place] [address] PCP - General Family Medicine 04/16/24 Adrian Wallace DO Referring Neurology 11/13/18 Braxton Knowles MD [address] [place] [address] Referring General Surgery 01/09/24 Christie Sánchez NP [address] [place] [address] Home Care Provider Family Medicine 01/09/24 Tessa Spring MD [address] [place] [address] General Surgery 02/01/24 Amber Valverde LISW [address] [place] [address] Tool Trouble Shooter Hematology/Oncology 02/19/24 Jimmie Poole MD [address] [place] [address] Hematology/Oncology 02/21/24 Kate Castillo RN [address] [address] Specialty Pouncing Lathe Operator Hematology/Oncology 02/21/24 Wringer And Setter Relationship Specialty Start Date End Date Christie Sánchez NP [address] [place] [address] PCP - General Family Medicine 04/16/24 Adrian Wallace DO Referring Neurology 11/13/18 Braxton Knowles MD [address] [place] [address] Referring General Surgery 01/09/24 Christie Sánchez NP [address] [place] [address] Home Care Provider Family Medicine 01/09/24 Tessa Spring MD [address] [phone] General Surgery 02/01/24 Amber Valverde LISW [address] [place] [address] Tool Trouble Shooter Hematology/Oncology 02/19/24 Jimmie Poole MD [address] [place] [address] Hematology/Oncology 02/21/24 Kate Castillo RN [address] [place] [address] Specialty Pouncing Lathe Operator Hematology/Oncology 02/21/24 Wringer And Setter Relationship Specialty Start Date End Date Christie Sánchez NP [address] [place] [address] PCP - General Family Medicine 04/16/24 Adrian Wallace DO Referring Neurology 11/13/18 Braxton Knowles MD [address] [place] [address] Referring General Surgery 01/09/24 Christie Sánchez NP [address] [place], [place] 946591 Home Care Provider Family Medicine 01/09/24 [place] [address] [place] [address] General Surgery 02/01/24 Amber Valverde LISW [address] [place] [address] Tool Trouble Shooter Hematology/Oncology 02/19/24 Jimmie Poole MD [address] [place] [address] Hematology/Oncology 02/21/24 Kate Castillo, REAL [address] [place] [address] Specialty Pouncing Lathe Operator Hematology/Oncology 02/21/24 Wringer And Setter Relationship Specialty Start Date End Date Christie Sánchez NP 9 [place] [address] PCP - General Family Medicine 04/16/24 Adrian Wallace DO Referring Neurology 11/13/18 Braxton Knowles MD [address] [place] [address] Referring General Surgery 01/09/24 Christie Sánchez NP [address] [place] [address] Home Care Provider Family Medicine 01/09/24 Tessa Spring MD [address] [place] [address] General Surgery 02/01/24 Amber Valverde LISW [address] [place] [address] Tool Trouble Shooter Hematology/Oncology 02/19/24 Jimmie Poole MD [address] [place] [address] Hematology/Oncology 02/21/24 Kate Castillo, REAL [address] [place], [place] 308271 Specialty Pouncing Lathe Operator Hematology/Oncology 02/21/24 Wringer And Setter Relationship Specialty Start Date End Date Christie Sánchez NP [address] [place] [address] PCP - General Family Medicine 04/16/24 Adrian Wallaec DO Referring Neurology 11/13/18 Braxton Knowles MD [address] [place] [address] Referring General Surgery 01/09/24 Christie Sánchez NP [address] [place] [address] Home Care Provider Family Medicine 01/09/24 Tessa Spring MD [address] [place] [address] General Surgery 02/01/24 Amber Valverde LISW [address] [place] [address] Tool Trouble Shooter Hematology/Oncology 02/19/24 Jimmie Poole MD [address] [place] [address] Hematology/Oncology 02/21/24 Kate Castillo, REAL [address] [place] [facility] [address] Specialty Pouncing Lathe Operator Hematology/Oncology 02/21/24 Wringer And Setter Relationship Specialty Start Date End Date Mary Moss CNP PCP - General Family Medicine 05/28/18 04/15/24 Christie Sánchez NP [address] [address] PCP - General Family Medicine 04/16/24 Adrian Wallace DO Referring Neurology 11/13/18 Braxton Knowles MD [address] [place] [address] Referring General Surgery 01/09/24 Christie Sánchez NP [address] [place] [address] Home Care Provider Family Medicine 01/09/24 Tessa Spring MD [address] [place] [address] General Surgery 02/01/24 Amber Valverde LISW [address] [facility] [place] [address] Tool Trouble Shooter Hematology/Oncology 02/19/24 Jimmie Poole MD [address] [place] [address] Hematology/Oncology 02/21/24 Kate Castillo, REAL [address] [place] [address] Specialty Pouncing Lathe Operator Hematology/Oncology 02/21/24 Wringer And Setter Relationship Specialty Start Date End Date Christie Sánchez NP [address] [place] [address] PCP - General Family Medicine 04/16/24 Adrian Wallace DO Referring Neurology 11/13/18 Braxton Knowles MD [address] [phone] Referring General Surgery 01/09/24 Christie Sánchez NP [address] [place] [address] Home Care Provider Family Medicine 01/09/24 Tessa Spring MD [address] [phone] General Surgery 02/01/24 Amber Valverde LISW [address] [place] [address] Tool Trouble Shooter Hematology/Oncology 02/19/24 Jimmie Poole MD [address] [place] [address] Hematology/Oncology 02/21/24 Kate Castillo RN [address] [place] [address] Specialty Pouncing Lathe Operator Hematology/Oncology 02/21/24 Wringer And Setter Relationship Specialty Start Date End Date Christie Sánchez NP [address] [place] [address] PCP - General Family Medicine 04/16/24 Adrian Wallace DO Referring Neurology 11/13/18 Braxton Knowles MD [address] [place] [address] Referring General Surgery 01/09/24 Christie Sánchez NP [address] [place] [address] Home Care Provider Family Medicine 01/09/24 Tessa Spring MD [address] [place] [address] General Surgery 02/01/24 Amber Valverde LISW [address] [place] [address] Tool Trouble Shooter Hematology/Oncology 02/19/24 Jimmie Poole MD [address] [place] [address] Hematology/Oncology 02/21/24 Kate Castillo, REAL [address] [place] [address] Specialty Pouncing Lathe Operator Hematology/Oncology 02/21/24 Wringer And Setter Relationship Specialty Start Date End Date Christie Sánchez NP [address] [place] [address] PCP - General Family Medicine 04/16/24 Adrian Wallace DO Referring Neurology 11/13/18 [place] [address] [place] [address] Referring General Surgery 01/09/24 Christie Sánchez NP [address] [place] [address], [place] [address] Home Care Provider Family Medicine 01/09/24 Tessa Spring MD [address] [place] [address] General Surgery 02/01/24 Amber Valverde LISW [address] [place] [address] Tool Trouble Shooter Hematology/Oncology 02/19/24 Jimmie Poole MD [address] [place] [facility] [address] Hematology/Oncology 02/21/24 Kate Castillo, REAL [address] [place] [facility] [address] Specialty Pouncing Lathe Operator Hematology/Oncology 02/21/24 Wringer And Setter Relationship Specialty Start Date End Date Christie Sánchez NP [address] [place] [address] PCP - General Family Medicine 04/16/24 Adrian Wallace DO Referring Neurology 11/13/18 Braxton Knowles MD [address] [place] [address] Referring General Surgery 01/09/24 Christie Sánchez NP [address] [place] [address] Home Care Provider Family Medicine 01/09/24 Tessa Spring MD [address] [place] [address] General Surgery 02/01/24 Amber Valverde LISW [address] [place] [address] Tool Trouble Shooter Hematology/Oncology 02/19/24 Jimmie Poole MD [address] [place] [address] Hematology/Oncology 02/21/24 Kate Castillo RN [address] [place] [address] Specialty Pouncing Lathe Operator Hematology/Oncology 02/21/24 Wringer And Setter Relationship Specialty Start Date End Date Christie Sánchez NP 9 [place] [address] PCP - General Family Medicine 04/16/24 Adrian Wallace DO Referring Neurology 11/13/18 Braxton Knowles MD [address] [place] [address] Referring General Surgery 01/09/24 Christie Sánchez NP [address] [place] [address] Home Care Provider Family Medicine 01/09/24 Tessa Spring MD [address] [place] [address] General Surgery 02/01/24 Amber Valverde LISW [address] [place] [address] Tool Trouble Shooter Hematology/Oncology 02/19/24 Jimmie Poole MD [address] [place], [place] [id number] Hematology/Oncology 02/21/24 Kate Castillo, REAL [address] [place], [place] [id number] Specialty Pouncing Lathe Operator Hematology/Oncology 02/21/24 Team Status: Active Member Role Status Dates Aubrey Lopez VSC, MECHANIC SENIOR-C Primary Care Provider Active Team Status: Inactive Member Role Status Dates Christie Sánchez VSC, MECHANIC SENIOR-C Primary Care Provider Activ e Start: April 08, 2024 End: April 08, 2024 Ankit Marsh MD Attending Provider Active Star t: April 08, 2024 End: April 08, 2024 Ankit Marsh MD Emergency Provider Active Star t: April 08, 2024 End: April 08, 2024 Team Status: Inactive Member Role Status Dates Aubrey Lopez VSC, MECHANIC SENIOR-C Primary Care Provider Active Start: July 11, 2024 End: July 11, 2024 Dr. Milagro Ying DO Referring Provider Active S tart: July 11, 2024 End: July 11, 2024 Dr. Milagro Ying DO Emergency Provider Active S tart: July 11, 2024 End: July 11, 2024 Wringer And Setter Relationship Specialty Start Date End Date Christie Sánchez NP [address] [place] [address] PCP - General Family Medicine 04/16/24 Adrian Wallace DO Referring Neurology 11/13/18 [place] [address] [place] [address] Referring General Surgery 01/09/24 Christie Sánchez NP [address] [place] [address] Home Care Provider Family Medicine 01/09/24 [place] [address] [place] [address] General Surgery 02/01/24 Amber Valverde LISW [address] [place] [address] Tool Trouble Shooter Hematology/Oncology 02/19/24 Jimmie Poole MD [address] [place] [address] Hematology/Oncology 02/21/24 Kate Castillo, RN [address] [place] [address] Specialty Pouncing Lathe Operator Hematology/Oncology 02/21/24 Wringer And Setter Relationship Specialty Start Date End Date Christie Sánchez NP 9 [place] [address] PCP - General Family Medicine 04/16/24 Adrian Wallace DO Referring Neurology 11/13/18 Braxton Knowles MD [address] [place] [address] Referring General Surgery 01/09/24 Christie Sánchez NP [address] [place] [address] Home Care Provider Family Medicine 01/09/24 Tessa Spring MD [address] [place] [address] General Surgery 02/01/24 Amber Valverde LISW [address] [place] [address] Tool Trouble Shooter Hematology/Oncology 02/19/24 Jimmie Poole MD [address] [place] [facility] [address] Hematology/Oncology 02/21/24 Kate Castillo, REAL [address] [place] [address] Specialty Pouncing Lathe Operator Hematology/Oncology 02/21/24 Wringer And Setter Relationship Specialty Start Date End Date Christie Sánchez NP [address] [place] [address] PCP - General Family Medicine 04/16/24 Adrian Wallace DO Referring Neurology 11/13/18 Braxton Knowles MD [address] [place] [address] Referring General Surgery 01/09/24 Christie Sánchez NP [address] [place] [address] Home Care Provider Family Medicine 01/09/24 Tessa Spring MD [address] [place] [address] General Surgery 02/01/24 Amber Valverde LISW [address] [place] [address] Tool Trouble Shooter Hematology/Oncology 02/19/24 Jimmie Pooel MD [address] [place] [address] Hematology/Oncology 02/21/24 Kate Castillo, REAL [address] [place] [address] Specialty Pouncing Lathe Operator Hematology/Oncology 02/21/24 Wringer And Setter Relationship Specialty Start Date End Date Christie Sánchez NP [address] [place] [address] PCP - General Family Medicine 04/16/24 Adrian Wallace DO Referring Neurology 11/13/18 Braxton Knowles MD [address] [phone] Referring General Surgery 01/09/24 Christie Sánchez NP [address] [facility] [place] [address] Home Care Provider Family Medicine 01/09/24 Tessa Spring MD [address] [place] [address] General Surgery 02/01/24 Amber Valverde LISW [address] [place] [address] Tool Trouble Shooter Hematology/Oncology 02/19/24 Jimmie Poole MD [address] [place] [address] Hematology/Oncology 02/21/24 Kate Castillo RN [address] [place], [place] 253211 Specialty Pouncing Lathe Operator Hematology/Oncology 02/21/24 Wringer And Setter Relationship Specialty Start Date End Date Christie Sánchez NP [address] [place] [address] PCP - General Family Medicine 04/16/24 dArian Wallace DO Referring Neurology 11/13/18 Braxton Knowles MD [address] [place] [address] Referring General Surgery 01/09/24 Christie Sánchez NP [address] [place] [address] Home Care Provider Family Medicine 01/09/24 Tessa Spring MD [address] [place] [address] General Surgery 02/01/24 Amber Valverde LISW [address] [place] [address] Tool Trouble Shooter Hematology/Oncology 02/19/24 Jimmie Poole MD [address] [address] Hematology/Oncology 02/21/24 aKte Castillo RN [address] [place] [facility] [address] Specialty Pouncing Lathe Operator Hematology/Oncology 02/21/24 Wringer And Setter Relationship Specialty Start Date End Date Christie Sánchez NP [address] [place] [address] PCP - General Family Medicine 04/16/24 Adrian Wallace DO Referring Neurology 11/13/18 Braxton Knowles MD [address] [place], [place] 0686995 Referring General Surgery 01/09/24 Christie Sánchez NP [address] [place] [address] Home Care Provider Family Medicine 01/09/24 Tessa Spring MD [address] [place] [address] General Surgery 02/01/24 Abmer Valverde LISW [address] [place] [address] Tool Trouble Shooter Hematology/Oncology 02/19/24 Jimmie Poole MD [address] [place] [address] Hematology/Oncology 02/21/24 Kate Castillo, REAL [address] [place] [address] Specialty Pouncing Lathe Operator Hematology/Oncology 02/21/24 Wringer And Setter Relationship Specialty Start Date End Date Christie Sánchez NP [address] [place] [address] PCP - General Family Medicine 04/16/24 Adrian Wallace DO Referring Neurology 11/13/18 [place] [address] [place] [address] Referring General Surgery 01/09/24 Christie Sánchez NP [address] [place] [address] Home Care Provider Family Medicine 01/09/24 Tessa Spring MD [address] [place], [place] [address] General Surgery 02/01/24 Amber Valverde LISW [address] [place] [address] Tool Trouble Shooter Hematology/Oncology 02/19/24 Jimmie Poole MD [address] [place] [address] Hematology/Oncology 02/21/24 Kate Castillo, REAL [address] [place] [address] Specialty Pouncing Lathe Operator Hematology/Oncology 02/21/24 Wringer And Setter Relationship Specialty Start Date End Date Christie Sánchez NP [address] [place] [address] PCP - General Family Medicine 04/16/24 Adrian Wallace DO Referring Neurology 11/13/18 [place] [address] [place] [address] Referring General Surgery 01/09/24 Christie Sánchez NP [address] [place], [place] 844991 Home Care Provider Family Medicine 01/09/24 Tessa Spring MD [address] [place] [address] General Surgery 02/01/24 Amber Valverde LISW [address] [place] [address] Tool Trouble Shooter Hematology/Oncology 02/19/24 Jimmie Poole MD [address] [facility], [place] [address] Hematology/Oncology 02/21/24 Kate Castillo, REAL [address] [facility], [place] 375571 Specialty Pouncing Lathe Operator Hematology/Oncology 02/21/24 Wringer And Setter Relationship Specialty Start Date End Date Christie Sánchez NP [address] [place] [address] PCP - General Family Medicine 04/16/24 Adrian Wallace DO Referring Neurology 11/13/18 Braxton Knowles MD [address] [place] [address] Referring General Surgery 01/09/24 Christie Sánchez NP [address] [place] [address] Home Care Provider Family Medicine 01/09/24 Tessa Spring MD [address] [place] [address] General Surgery 02/01/24 Amber Valverde LISW [address] [place] [address] Tool Trouble Shooter Hematology/Oncology 02/19/24 Jimmie Poole MD [address] [place] [address] Hematology/Oncology 02/21/24 Kate Castillo, RN [address] [place] [address] Specialty Pouncing Lathe Operator Hematology/Oncology 02/21/24 Wringer And Setter Relationship Specialty Start Date End Date Christie Sánchez NP [address] [place] [address] PCP - General Family Medicine 04/16/24 Adrian Wallace DO Referring Neurology 11/13/18 Braxton Knowles MD [address] [phone] Referring General Surgery 01/09/24 Christie Sánchez NP [address] [place] [address] Home Care Provider Family Medicine 01/09/24 Tessa Spring MD [address] [id number] General Surgery 02/01/24 Amber Valverde LISW [address] [place] [address] Tool Trouble Shooter Hematology/Oncology 02/19/24 Jimmie Poole MD [address] [place] [address] Hematology/Oncology 02/21/24 Kate Castillo RN [address] [place] [address] Specialty Pouncing Lathe Operator Hematology/Oncology 02/21/24 Wringer And Setter Relationship Specialty Start Date End Date Christie Sánchez NP [address] [place] [address] PCP - General Family Medicine 04/16/24 Adrian Wallace DO Referring Neurology 11/13/18 Braxton Knowles MD [address] [place] [address] Referring General Surgery 01/09/24 Christie Sánchez NP [address] [place] [address] Home Care Provider Family Medicine 01/09/24 Tessa Spring MD [address] [place] [address] General Surgery 02/01/24 Amber Valverde LISW [address] [place] [address] Tool Trouble Shooter Hematology/Oncology 02/19/24 Jimmie Poole MD [address] [place] [address] Hematology/Oncology 02/21/24 Kate Castillo RN [address] [place] [facility] [place] [address] Specialty Pouncing Lathe Operator Hematology/Oncology 02/21/24 Wringer And Setter Relationship Specialty Start Date End Date Christie Sánchez NP [address] [place] [address] PCP - General Family Medicine 04/16/24 Adrian Wallace DO Referring Neurology 11/13/18 Braxton Knowles MD [address] [place] [address] Referring General Surgery 01/09/24 Christie Sánchez NP [address] [place] [address] Home Care Provider Family Medicine 01/09/24 Tessa Spring MD [address] [place] [address] General Surgery 02/01/24 Amber Valverde LISW [address] [place] [address] Tool Trouble Shooter Hematology/Oncology 02/19/24 Jimmie Poole MD [address] [place] [address] Hematology/Oncology 02/21/24 Kate Castillo RN [address] [place] [address] Specialty Pouncing Lathe Operator Hematology/Oncology 02/21/24 Wringer And Setter Relationship Specialty Start Date End Date Christie Sánchez NP [address] [place] [address] PCP - General Family Medicine 04/16/24 Adrian Wallace DO Referring Neurology 11/13/18 Braxton Knowles MD [address] [phone] Referring General Surgery 01/09/24 Christie Sánchez NP [address] [place] [address] Home Care Provider Family Medicine 01/09/24 [place] [address] [place] [address] General Surgery 02/01/24 Amber Vlaverde LISW [address] [place] [address] Tool Trouble Shooter Hematology/Oncology 02/19/24 Jimmie Poole MD [address] [place] [address] Hematology/Oncology 02/21/24 Kate Castillo, REAL [address] [place] [address] Specialty Pouncing Lathe Operator Hematology/Oncology 02/21/24 Wringer And Setter Relationship Specialty Start Date End Date Christie Sánchez NP [address] [place] [address] PCP - General Family Medicine 04/16/24 Adrian Wallace DO Referring Neurology 11/13/18 [place] [address] [place], [place] [id number] Referring General Surgery 01/09/24 Christie Sánchez NP [address] [place] [address] Home Care Provider Family Medicine 01/09/24 Tessa Spring MD [address] [place] [address] General Surgery 02/01/24 Amber Valverde LISW [address] [place] [address] Tool Trouble Shooter Hematology/Oncology 02/19/24 Jimmie Poole MD [address] [place] [address] Hematology/Oncology 02/21/24 Kate Castillo RN [address] [place] [address] Specialty Pouncing Lathe Operator Hematology/Oncology 02/21/24 Wringer And Setter Relationship Specialty Start Date End Date Christie Sánchez NP [address] [place] [address] PCP - General Family Medicine 04/16/24 Braxton Knowles MD [address] [phone] Referring General Surgery 01/09/24 Tessa Spring MD [address] [place] [address] General Surgery 02/01/24 Amber Valverde LISW [address] [place] [address] Tool Trouble Shooter Hematology/Oncology 02/19/24 Jimmie Poole MD [address] [place] [address] Hematology/Oncology 02/21/24 Kate Castillo RN [address] [place] [address] Specialty Pouncing Lathe Operator Hematology/Oncology 02/21/24 Tessa Spring MD [address] [place] [address] Referring General Surgery 09/04/24 Jimmie Poole MD [address] [place] [address] Home Care Provider Hematology/Oncology 09/04/24 Shelby Brown, PT [address] [place] [address] Reinforcing Steel Machine Operator Post Acute Care 09/04/24 Wringer And Setter Relationship Specialty Start Date End Date Christie Sánchez NP [address] [place] [address] PCP - General Family Medicine 04/16/24 Braxton Knowles MD [address] [place] [address] Referring General Surgery 01/09/24 Tessa Spring MD [address] [place] [address] General Surgery 02/01/24 Amber Valverde LISW [address] [place] [address] Tool Trouble Shooter Hematology/Oncology 02/19/24 Jimmie Poole MD [address] [place] [address] Hematology/Oncology 02/21/24 Kate Castillo, REAL [address] [place] [address] Specialty Pouncing Lathe Operator Hematology/Oncology 02/21/24 Tessa Spring MD [address] [address] Referring General Surgery 09/04/24 Jimmie Poole MD [address] [place] [address] Home Care Provider Hematology/Oncology 09/04/24 Shelby Brown, PT [address] [place] [address] Reinforcing Steel Machine Operator Post Acute Care 09/04/24 Team Status: Inactive Member Role Status Dates Zebuluchico Beam VSC, MECHANIC SENIOR-C Primary Care Provider Active Start: July 11, 2024 End: July 11, 2024 Dr. Milagro Ying DO Attending Provider Active S tart: July 11, 2024 End: July 11, 2024 Dr. Milagro Ying DO Referring Provider Active S tart: July 11, 2024 End: July 11, 2024 Dr. Milagro Ying DO Emergency Provider Active S tart: July 11, 2024 End: July 11, 2024 Team Status: Inactive Member Role Status Dates Zebuluchico Beam VSC, MECHANIC SENIOR-C Primary Care Provider Active Start: September 04, 2024 End: September 13, 2024 Dr. Qamar Smith MD Admit Provider Active Star t: September 04, 2024 End: September 13, 2024 Dr. Qamar Smith MD Attending Provider Active Start: September 04, 2024 End: September 13, 2024 Dr. Cecily Rudd MD Other Provider Active S tart: September 04, 2024 End: September 13, 2024 Team Status: Active Member Role Status Dates Benbureji Beam VSC, MECHANIC SENIOR-C Primary Care Provider Active Start: September 13, 2024 Dr. Qamar Smith MD Attending Provider Active Start: September 13, 2024 Dr. Qamar Smith MD Referring Provider Active Start: September 13, 2024 Wringer And Setter Relationship Specialty Start Date End Date Christie Sánchez NP [address] [place] [address] PCP - General Family Medicine 04/16/24 Braxton Knowles MD [address] [phone] Referring General Surgery 01/09/24 Tessa Spring MD [address] [phone] General Surgery 02/01/24 Amber Valverde LISW [address] [place] [address] Tool Trouble Shooter Hematology/Oncology 02/19/24 Jimmie Poole MD [address] [place] [address] Hematology/Oncology 02/21/24 Kate Castillo RN [address] [place] [address] Specialty Pouncing Lathe Operator Hematology/Oncology 02/21/24 Tessa Spring MD [address] [phone] Referring General Surgery 09/04/24 Jimmie Poole MD [address] [place], [place] [id number] Home Care Provider Hematology/Oncology 09/04/24 Wringer And Setter Relationship Specialty Start Date End Date Christie Sánchez NP [address] [place] [address] PCP - General Family Medicine 04/16/24 Braxton Knowles MD [address] [place], [place] [phone] Referring General Surgery 01/09/24 Tessa Spring MD [address] [phone] General Surgery 02/01/24 Amber Valverde LISW [address] [place] [address] Tool Trouble Shooter Hematology/Oncology 02/19/24 Jimmie Poole MD [address] [place] [address] Hematology/Oncology 02/21/24 Kate Castillo, RN [address] [place] [address] Specialty Pouncing Lathe Operator Hematology/Oncology 02/21/24 Tessa Spring MD [address] [place] [address] Referring General Surgery 09/04/24 Jimmie Poole MD [address] [place] [address] Home Care Provider Hematology/Oncology 09/04/24 Wringer And Setter Relationship Specialty Start Date End Date Christie Sánchez NP [address] [place] [address] PCP - General Family Medicine 04/16/24 Braxton Knowles MD [address] [phone] Referring General Surgery 01/09/24 Tessa Spring MD [address] [phone] General Surgery 02/01/24 Amber Valverde LISW [address] [place] [address] Tool Trouble Shooter Hematology/Oncology 02/19/24 Jimmie Poole MD [address] [place] [address] Hematology/Oncology 02/21/24 Kate Castillo, REAL [address] [place] [address] Specialty Pouncing Lathe Operator Hematology/Oncology 02/21/24 Tessa Spring MD [address] [place] [address] Referring General Surgery 09/04/24 Jimmie Poole MD [address] [place] [address] Home Care Provider Hematology/Oncology 09/04/24 Wringer And Setter Relationship Specialty Start Date End Date Christie Sánchez NP [address] [place] [address] PCP - General Family Medicine 04/16/24 Braxton Knowles MD [address] [place] [address] Referring General Surgery 01/09/24 Tessa Spring MD [address] [place] [address] General Surgery 02/01/24 Amber Valverde LISW [address] [place] [address] Tool Trouble Shooter Hematology/Oncology 02/19/24 Jimmie Poole MD [address] [place] [address] Hematology/Oncology 02/21/24 Kate Castillo, REAL [address] [place] [address] Specialty Pouncing Lathe Operator Hematology/Oncology 02/21/24 Tessa Spring MD [address] [place] [address] Referring General Surgery 09/04/24 Jimmie Poole MD [address] [place] [address] Home Care Provider Hematology/Oncology 09/04/24 Team Status: Active Member Role/Relationship Status Dates Zebulun Beam VSC, MECHANIC SENIOR-C Primary Care Provider Active Team Status: Inactive Member Role/Relationship Status Dates Zebulun Beam VSC, MECHANIC SENIOR-C Primary Care Provider Active Start: July 11, 2024 End: July 11, 2024 Dr. Milagro Ying , Attending Provider Active S tart: July 11, 2024 End: July 11, 2024 Dr. Milagro Ying DO Referring Provider Active S tart: July 11, 2024 End: July 11, 2024 Dr. Milagro Ying DO Emergency Provider Active S tart: July 11, 2024 End: July 11, 2024 Team Status: Inactive Member Role/Relationship Status Dates Zebulun Beam VSC, MECHANIC SENIOR-C Primary Care Provider Active Start: September 04, 2024 End: September 13, 2024 Dr. Qamar Smith MD Admit Provider Active Star t: September 04, 2024 End: September 13, 2024 Dr. Qamar Smith MD Attending Provider Active Start: September 04, 2024 End: September 13, 2024 Dr. Cecily Rudd MD Other Provider Active S tart: September 04, 2024 End: September 13, 2024 Team Status: Inactive Member Role/Relationship Status Dates Zebulun Beam VSC, MECHANIC SENIOR-C Primary Care Provider Active Start: September 13, 2024 End: September 13, 2024 Dr. Qamar Smith MD Attending Provider Active Start: September 13, 2024 End: September 13, 2024 Dr. Qamar Smith MD Referring Provider Active Start: September 13, 2024 End: September 13, 2024 Wringer And Setter Relationship Specialty Start Date End Date Christie Sánchez NP [address] [place] [address] PCP - General Family Medicine 04/16/24 Braxton Knowles MD [address] [place], [place] [id number] Referring General Surgery 01/09/24 Tessa Spring MD [address] [place] [address] General Surgery 02/01/24 Amber Valverde LISW [address] [place] [address] Tool Trouble Shooter Hematology/Oncology 02/19/24 Jimmie Poole MD [address] [place] [address] Hematology/Oncology 02/21/24 Kate Castillo, REAL [address] [place] [address] Specialty Pouncing Lathe Operator Hematology/Oncology 02/21/24 Tessa Spring MD [address] [place] [address] Referring General Surgery 09/04/24 Jimmie Poole MD [address] [place], [place] [id number] Home Care Provider Hematology/Oncology 09/04/24 Wringer And Setter Relationship Specialty Start Date End Date Christie Sánchez NP [address] [place] [address] PCP - General Family Medicine 04/16/24 Braxton Knowles MD [address] [place], [place] [phone] Referring General Surgery 01/09/24 Tessa Spring MD [address] [phone] General Surgery 02/01/24 Amber Valverde LISW [address] [place] [address] Tool Trouble Shooter Hematology/Oncology 02/19/24 Jimmie Poole MD [address] [place] [facility] [place] [address] Hematology/Oncology 02/21/24 Kate Castillo, REAL [address] [place] [facility] [place] [address] Specialty Pouncing Lathe Operator Hematology/Oncology 02/21/24 Tessa Spring MD [address] [phone] Referring General Surgery 09/04/24 Jimmie Poole MD [address] [place], [place] [id number] Home Care Provider Hematology/Oncology 09/04/24 Wringer And Setter Relationship Specialty Start Date End Date Christie Sánchez NP [address] [place] [address] PCP - General Family Medicine 04/16/24 Braxton Knowles MD [address] [phone] Referring General Surgery 01/09/24 Tessa Spring MD [address] [phone] General Surgery 02/01/24 Amber Valverde LISW [address] [place] [address] Tool Trouble Shooter Hematology/Oncology 02/19/24 Jimmie Poole MD [address] [place] [address] Hematology/Oncology 02/21/24 Kate Castillo, RN [address] [place] [facility] [place] [address] Specialty Pouncing Lathe Operator Hematology/Oncology 02/21/24 Tessa Spring MD [address] [place], [place] [phone] Referring General Surgery 09/04/24 Jimmie Poole MD [address] [place] [address] Home Care Provider Hematology/Oncology 09/04/24 Wringer And Setter Relationship Specialty Start Date End Date Christie Sánchez NP [address] [place] [address] PCP - General Family Medicine 04/16/24 Braxton Knowles MD [address] [place], [place] 0402195 Referring General Surgery 01/09/24 Tessa Spring MD [address] [place] [address] General Surgery 02/01/24 Amber Valverde LISW [address] [place] [address] Tool Trouble Shooter Hematology/Oncology 02/19/24 Jimmie Poole MD [address] [place] [address] Hematology/Oncology 02/21/24 Kate Castillo RN [address] [place] [address] Specialty Pouncing Lathe Operator Hematology/Oncology 02/21/24 Tessa Spring MD [address] [place] [address] Referring General Surgery 09/04/24 Jimmie Poole MD [address] [place] [address] Home Care Provider Hematology/Oncology 09/04/24 Wringer And Setter Relationship Specialty Start Date End Date Christie Sánchez NP [address] [place] [address] PCP - General Family Medicine 04/16/24 Braxton Knowles MD [address] [place] [address] Referring General Surgery 01/09/24 Tessa Spring MD [address] [place] [address] General Surgery 02/01/24 Amber Valverde LISW [address] [place] [address] Tool Trouble Shooter Hematology/Oncology 02/19/24 Jimmie Poole MD [address] [facility] [address] Hematology/Oncology 02/21/24 Kate Castillo, REAL [address] [facility] [address] Specialty Pouncing Lathe Operator Hematology/Oncology 02/21/24 Tessa Spring MD [address] [place] [address] Referring General Surgery 09/04/24 Jimmie Poole MD [address] [place], [place] [id number] Home Care Provider Hematology/Oncology 09/04/24 Wringer And Setter Relationship Specialty Start Date End Date Gonzalo ChristieDAVID osorio [address] [place] [address] PCP - General Family Medicine 04/16/24 Braxton Knowles MD [address] [place] [address] Referring General Surgery 01/09/24 Tessa Spring MD [address] [place] [address] General Surgery 02/01/24 Amber Valverde LISW [address] [place] [address] Tool Trouble Shooter Hematology/Oncology 02/19/24 Jimmie Poole MD [address] [place] [address] Hematology/Oncology 02/21/24 Kate Castillo, REAL [address] [place] [address] Specialty Pouncing Lathe Operator Hematology/Oncology 02/21/24 Tessa Spring MD [address] [place], [place] 3490895 Referring General Surgery 09/04/24 Jimmie Poole MD [address] [place], [place] [phone] Home Care Provider Hematology/Oncology 09/04/24 Wringer And Setter Relationship Specialty Start Date End Date Christie Sánchez NP [address] [place] [address] PCP - General Family Medicine 04/16/24 Braxton Knowles MD [address] [place], [place] 6525895 Referring General Surgery 01/09/24 Tessa Spring MD [address] [place], [place] [id number] General Surgery 02/01/24 Amber Valverde LISW [address] [place] [address] Tool Trouble Shooter Hematology/Oncology 02/19/24 Jimmie Poole MD [address] [place] [address] Hematology/Oncology 02/21/24 Kate Castillo, REAL [address] [place] [address] Specialty Pouncing Lathe Operator Hematology/Oncology 02/21/24 Tessa Spring MD [address] [place] [address] Referring General Surgery 09/04/24 Jimmie Poole MD [address] [place] [address] Home Care Provider Hematology/Oncology 09/04/24 Wringer And Setter Relationship Specialty Start Date End Date Christie Sánchez NP [address] [place] [address] PCP - General Family Medicine 04/16/24 Braxton Knowles MD [address] [phone] Referring General Surgery 01/09/24 Tessa Spring MD [address] [phone] General Surgery 02/01/24 Amber Valverde LISW [address] [place] [address] Tool Trouble Shooter Hematology/Oncology 02/19/24 Jimmie Poole MD [address] [place], [place] [address]61 Hematology/Oncology 02/21/24 Kate Castillo RN [address] [place] [address] Specialty Pouncing Lathe Operator Hematology/Oncology 02/21/24 Tessa Spring MD [address] [phone] Referring General Surgery 09/04/24 Jimmie Poole MD [address] [place] [address] Home Care Provider Hematology/Oncology 09/04/24 Wringer And Setter Relationship Specialty Start Date End Date Christie Sánchez NP [address] [place] [address] PCP - General Family Medicine 04/16/24 Braxton Knowles MD [address] [place] [address] Referring General Surgery 01/09/24 Tessa Spring MD [address] [phone] General Surgery 02/01/24 Amber Valverde LISW [address] [place] [address] Tool Trouble Shooter Hematology/Oncology 02/19/24 Jimmie Poole MD [address] [place] [facility] [address] Hematology/Oncology 02/21/24 Kate Castillo, RN [address] [place] [address] Specialty Pouncing Lathe Operator Hematology/Oncology 02/21/24 Tessa Spring MD [address] [place] [address] Referring General Surgery 09/04/24 Jimmie Poole MD [address] [place] [address] Home Care Provider Hematology/Oncology 09/04/24 Wringer And Setter Relationship Specialty Start Date End Date Christie Sánchez NP [address] [place] [address] PCP - General Family Medicine 04/16/24 Braxton Knowles MD [address] [place] [phone] Referring General Surgery 01/09/24 Tessa Spring MD [address] [place] [address] General Surgery 02/01/24 Amber Valverde LISW [address] [place] [address] Tool Trouble Shooter Hematology/Oncology 02/19/24 Jimmie Poole MD [address] [place] [address] Hematology/Oncology 02/21/24 Kate Castillo, REAL [address] [place] [address] Specialty Pouncing Lathe Operator Hematology/Oncology 02/21/24 Tessa Spring MD [address] [place] [address] Referring General Surgery 09/04/24 Jimmie Poole MD [address] [place] [address] Home Care Provider Hematology/Oncology 09/04/24 Team Status: Active Member Role/Relationship Status Dates Zebulun Beam VSC, MECHANIC SENIOR-C Primary Care Provider Active Start: October 18, 2024 Zebulun Beam VSC, MECHANIC SENIOR-C Attending Provider Active Start: October 18, 2024 Zebulun Beam VSC, MECHANIC SENIOR-C Referring Provider Active Start: October 18, 2024 Team Status: Inactive Member Role/Relationship Status Dates Zebulun Beam VSC, MECHANIC SENIOR-C Primary Care Provider Active Start: October 23, 2024 End: October 23, 2024 Ankit Marsh MD Emergency Provider Active Star t: October 23, 2024 End: October 23, 2024 Wringer And Setter Relationship Specialty Start Date End Date Christie Sánchez NP [address] [place] [address] PCP - General Family Medicine 04/16/24 Braxton Knowles MD [address] [place] [address] Referring General Surgery 01/09/24 Tessa Spring MD [address] [place] [address] General Surgery 02/01/24 Amber Valverde LISW [address] [place] [address] Tool Trouble Shooter Hematology/Oncology 02/19/24 Jimmie Poole MD [address] [place] [address] Hematology/Oncology 02/21/24 Kate Castillo, REAL [address] [place] [facility] [place] [address] Specialty Pouncing Lathe Operator Hematology/Oncology 02/21/24 Tessa Spring MD [address] [place] [address] Referring General Surgery 09/04/24 Jimmie Poole MD [address] [place] [address] Home Care Provider Hematology/Oncology 09/04/24 Wringer And Setter Relationship Specialty Start Date End Date Christie Sánchez NP [address] [place] [address] PCP - General Family Medicine 04/16/24 Braxton Knowles MD [address] [place], [place] 2553195 Referring General Surgery 01/09/24 Tessa Spring MD [address] [place], [place] [id number] General Surgery 02/01/24 Amber Valverde LISW [address] [place] [address] Tool Trouble Shooter Hematology/Oncology 02/19/24 Jimmie Poole MD [address] [place] [address] Hematology/Oncology 02/21/24 Kate Castillo RN [address] [facility] [address] Specialty Pouncing Lathe Operator Hematology/Oncology 02/21/24 Tessa Spring MD [address] [place] [address] Referring General Surgery 09/04/24 Jimmie Poole MD [address] [place] [address] Home Care Provider Hematology/Oncology 09/04/24 Wringer And Setter Relationship Specialty Start Date End Date Christie Sánchez NP [address] [place] [address] PCP - General Family Medicine 04/16/24 Braxton Knowles MD [address] [place] [address] Referring General Surgery 01/09/24 Tessa Spring MD [address] [place] [address] General Surgery 02/01/24 Amber Valverde LISW [address] [place] [address] Tool Trouble Shooter Hematology/Oncology 02/19/24 Jimmie Poole MD [address] [facility] [address] Hematology/Oncology 02/21/24 Kate Castillo, REAL [address] [facility] [address] Specialty Pouncing Lathe Operator Hematology/Oncology 02/21/24 Tessa Spring MD [address] [place] [address] Referring General Surgery 09/04/24 Jimmie Poole MD [address] [place], [place] [id number] Home Care Provider Hematology/Oncology 09/04/24 Wringer And Setter Relationship Specialty Start Date End Date Christie Sánchez NP [address] [place] [address] PCP - General Family Medicine 04/16/24 Braxton Knowles MD [address] [place] [address] Referring General Surgery 01/09/24 Tessa Spring MD [address] [place] [address] General Surgery 02/01/24 Amber Valverde LISW [address] [place] [address] Tool Trouble Shooter Hematology/Oncology 02/19/24 Jimmie Poole MD [address] [place] [address] Hematology/Oncology 02/21/24 Kate Castillo, REAL [address] [place] [address] Specialty Pouncing Lathe Operator Hematology/Oncology 02/21/24 Tessa Spring MD [address] [place] [address] Referring General Surgery 09/04/24 Jimmie Poole MD [address] [place], [place] [id number] Home Care Provider Hematology/Oncology 09/04/24 Wringer And Setter Relationship Specialty Start Date End Date Mary Moss CNP PCP - General Family Medicine 05/28/18 04/15/24 Christie Sánchez NP [address] [place], [place] 548391 PCP - General Family Medicine 04/16/24 Adrian Wallace DO Referring Neurology 11/13/18 09/03/24 Braxton Knowles MD [address] [phone] Referring General Surgery 01/09/24 Christie Sánchez [place] [address] [place] [address] Home Care Provider Family Medicine 01/09/24 09/03/24 Joe Williamson, REAL [address] [place], [place] [id number] Reinforcing Steel Machine Operator Post Acute Care 01/09/24 02/04/24 Tessa Spring MD [address] [place] [address] General Surgery 02/01/24 Amber Valverde LISW [address] [place] [address] Tool Trouble Shooter Hematology/Oncology 02/19/24 Jimmie Poole MD [address] [place] [address] Hematology/Oncology 02/21/24 Kate Castillo, REAL [address] [place] [address] Specialty Pouncing Lathe Operator Hematology/Oncology 02/21/24 Tessa Spring MD [address] [phone] Referring General Surgery 09/04/24 Jimmie Poole MD [address] [place] [address] Home Care Provider Hematology/Oncology 09/04/24 Shelby Brown, PT [address] [place] [address] Reinforcing Steel Machine Operator Post Acute Care 09/04/24 09/04/24 Team Status: Inactive Member Role/Relationship Status Dates Aubrey Lopez VSC, MECHANIC SENIOR-C Primary Care Provider Active Start: October 23, 2024 End: October 23, 2024 Ankit Marsh MD Attending Provider Active Star t: October 23, 2024 End: October 23, 2024 Ankit Marsh MD Emergency Provider Active Star t: October 23, 2024 End: October 23, 2024 Team Status: Active Member Role/Relationship Status Dates Aubrey Beam VSC, MECHANIC SENIOR-C Primary Care Provider Active Start: November 07, 2024 Dr. Lluvia Vann MD Emergency Provider Active S tart: November 07, 2024 Dr. Annette Mendez MD Admit Provider Active Star t: November 07, 2024 Dr. Annette Mendez MD Attending Provider Active Start: November 07, 2024 Wringer And Setter Relationship Specialty Start Date End Date Christie Sánchez NP [address] [place] [address] PCP - General Family Medicine 04/16/24 Braxton Knowles MD [address] [place] [address] Referring General Surgery 01/09/24 Tessa Spring MD [address] [facility] [place] [id number] General Surgery 02/01/24 Amber Valverde LISW [address] [place] [address] Tool Trouble Shooter Hematology/Oncology 02/19/24 Jimmie Poole MD [address] [place], [place] [id number] Hematology/Oncology 02/21/24 Kate Castillo, REAL [address], [place] [id number] Specialty Pouncing Lathe Operator Hematology/Oncology 02/21/24 Tessa Spring MD [address] [place] [address] Referring General Surgery 09/04/24 Jimmie Poole MD [address], [place] [id number] Home Care Provider Hematology/Oncology 09/04/24 Team Status: Inactive Member Role/Relationship Status Dates Aubrey Lopez VSC, MECHANIC SENIOR-C Primary Care Provider Active Start: November 07, 2024 End: November 08, 2024 Dr. Lluvia Vann MD Emergency Provider Active S tart: November 07, 2024 End: November 08, 2024 Dr. Annette Mendez MD Admit Provider Active Star t: November 07, 2024 End: November 08, 2024 Dr. Annette Mendez MD Other Provider Active Star t: November 07, 2024 End: November 08, 2024 Dr. Saroj Puga DO Attending Provider Active Start: November 07, 2024 End: November 08, 2024 Wringer And Setter Relationship Specialty Start Date End Date Christie Sánchez NP [address] [place] [address] PCP - General Family Medicine 04/16/24 Braxton Knowles MD [address] [place] [id number] Referring General Surgery 01/09/24 Tessa Spring MD [address] [place], [place] [id number] General Surgery 02/01/24 Amber Valverde LISW [address] [place] [address] Tool Trouble Shooter Hematology/Oncology 02/19/24 Jimmie Poole MD [address] [place] [address] Hematology/Oncology 02/21/24 Kate Castillo, REAL [address] [place] [address] Specialty Pouncing Lathe Operator Hematology/Oncology 02/21/24 Tessa Spring MD [address] [place] [phone] Referring General Surgery 09/04/24 Jimmie Poole MD [address], [place] [id number] Home Care Provider Hematology/Oncology 09/04/24 Wringer And Setter Relationship Specialty Start Date End Date Christie Sánchez NP [address] [place] [address] PCP - General Family Medicine 04/16/24 Braxton Knowles MD [address] [place] [address] Referring General Surgery 01/09/24 Tessa Spring MD [address] [place] [address] General Surgery 02/01/24 Amber Valverde LISW [address] [place] [address] Tool Trouble Shooter Hematology/Oncology 02/19/24 Jimmie Poole MD [address] [place] [address] Hematology/Oncology 02/21/24 Kate Castillo, RN [address] [place] [facility] [place] [address] Specialty Pouncing Lathe Operator Hematology/Oncology 02/21/24 Tessa Spring MD [address] [place] [phone] Referring General Surgery 09/04/24 Jimmie Poole MD [address] [place] [address] Home Care Provider Hematology/Oncology 09/04/24 Wringer And Setter Relationship Specialty Start Date End Date Christie Sánchez NP [address] [place] [address] PCP - General Family Medicine 04/16/24 Braxton Knowles MD [address] [place] [phone] Referring General Surgery 01/09/24 Tessa Spring MD [address] [place] [phone] General Surgery 02/01/24 Amber Valverde LISW [address] [place] [address] Tool Trouble Shooter Hematology/Oncology 02/19/24 Jimmie Poole MD [address] [place] [address] Hematology/Oncology 02/21/24 Kate Castillo, RN [address] [place] [address] Specialty Pouncing Lathe Operator Hematology/Oncology 02/21/24 Tessa Spring MD [address] [place] [phone] Referring General Surgery 09/04/24 Jimmie Poole MD [address] [place] [address] Home Care Provider Hematology/Oncology 09/04/24 Wringer And Setter Relationship Specialty Start Date End Date Christie Sánchez NP [address] [place] [address] PCP - General Family Medicine 04/16/24 Braxton Knowles MD [address] [place] [address] Referring General Surgery 01/09/24 Tessa Spring MD [address] [place] [address] General Surgery 02/01/24 Amber Valverde LISW [address] [place] [address] Tool Trouble Shooter Hematology/Oncology 02/19/24 Jimmie Poole MD [address] [place] [address] Hematology/Oncology 02/21/24 Kate Castillo, REAL [address] [place] [address] Specialty Pouncing Lathe Operator Hematology/Oncology 02/21/24 Tessa Spring MD [address] [place] [address] Referring General Surgery 09/04/24 Jimmie Poole MD [address] [place] [address] Home Care Provider Hematology/Oncology 09/04/24 Team Status: Inactive Member Role/Relationship Status Dates Zebulun Beam VSC, MECHANIC SENIOR-C Primary Care Provider Active Start: September 04, 2024 End: September 13, 2024 Dr. Qamar Smith MD Admit Provider Active Star t: September 04, 2024 End: September 13, 2024 Dr. Qamar Smith MD Attending Provider Active Start: September 04, 2024 End: September 13, 2024 Dr. Cecily Rudd MD Other Provider Active S tart: September 04, 2024 End: September 13, 2024 Team Status: Inactive Member Role/Relationship Status Dates Zebulun Beam VSC, MECHANIC SENIOR-C Primary Care Provider Active Start: September 13, 2024 End: September 13, 2024 Dr. Qamar Smith MD Attending Provider Active Start: September 13, 2024 End: September 13, 2024 Dr. Qamar Smith MD Referring Provider Active Start: September 13, 2024 End: September 13, 2024 Team Status: Active Member Role/Relationship Status Dates Zebulun Beam VSC, MECHANIC SENIOR-C Primary Care Provider Active Start: October 18, 2024 Zebulun Beam VSC, MECHANIC SENIOR-C Attending Provider Active Start: October 18, 2024 Zebulun Beam VSC, MECHANIC SENIOR-C Referring Provider Active Start: October 18, 2024 Team Status: Inactive Member Role/Relationship Status Dates Zebulun Beam VSC, MECHANIC SENIOR-C Primary Care Provider Active Start: October 23, 2024 End: October 23, 2024 Ankit Marsh MD Attending Provider Active Star t: October 23, 2024 End: October 23, 2024 Ankit Marsh MD Emergency Provider Active Star t: October 23, 2024 End: October 23, 2024 Team Status: Inactive Member Role/Relationship Status Dates Zebulun Beam VSC, MECHANIC SENIOR-C Primary Care Provider Active Start: November 07, 2024 End: November 08, 2024 Dr. Lluvia Vann MD Emergency Provider Active S tart: November 07, 2024 End: November 08, 2024 Dr. Annette Mendez MD Admit Provider Active Star t: November 07, 2024 End: November 08, 2024 Dr. Annette Mendez MD Other Provider Active Star t: November 07, 2024 End: November 08, 2024 Dr. Saroj Puga DO Attending Provider Active Start: November 07, 2024 End: November 08, 2024 Team Status: Active Member Role/Relationship Status Dates Zebuluchico Beam VSC, MECHANIC SENIOR-C Primary Care Provider Active Start: November 08, 2024 Dr. Lluvia Vann MD Emergency Provider Active S tart: November 08, 2024 Dr. Annette Mendez MD Admit Provider Active Star t: November 08, 2024 Dr. Annette Mendez MD Other Provider Active Star t: November 08, 2024 Dr. Saroj Puga DO Attending Provider Active Start: November 08, 2024 Dr. Saroj Puga DO Other Provider Active Start: November 08, 2024 Team Status: Inactive Member Role/Relationship Status Dates Zebulun Beam VSC, MECHANIC SENIOR-C Primary Care Provider Active Start: November 20, 2024 End: November 21, 2024 Dr. Kavin Adams DO Emergency Provider Active Start : November 20, 2024 End: November 21, 2024 Dr. Sivakumar Nichols MD Other Provider Active Star t: November 20, 2024 End: November 21, 2024 Wringer And Setter Relationship Specialty Start Date End Date Christie Sánchez NP [address] [place] [address] PCP - General Family Medicine 04/16/24 Braxton Knowles MD [address] [place] [address] Referring General Surgery 01/09/24 Tessa Spring MD [address] [place] [address] General Surgery 02/01/24 Amber Valverde LISW [address] [place] [address] Tool Trouble Shooter Hematology/Oncology 02/19/24 Jimmie Poole MD [address] [facility], [place] [address] Hematology/Oncology 02/21/24 Kate Castillo, REAL [address] [place] [address] Specialty Pouncing Lathe Operator Hematology/Oncology 02/21/24 Tessa Spring MD [address] [place] [address] Referring General Surgery 09/04/24 Jimmie Poole MD [address], [place] [id number] Home Care Provider Hematology/Oncology 09/04/24 Team Status: Inactive Member Role/Relationship Status Dates Zebulun Beam VSC, MECHANIC SENIOR-C Primary Care Provider Active Start: October 18, 2024 End: October 18, 2024 Zebulun Beam VSC, MECHANIC SENIOR-C Attending Provider Active Start: October 18, 2024 End: October 18, 2024 Zebulun Beam VSC, MECHANIC SENIOR-C Referring Provider Active Start: October 18, 2024 End: October 18, 2024 Team Status: Active Member Role/Relationship Status Dates Zebulun Beam VSC, MECHANIC SENIOR-C Primary Care Provider Active Start: November 20, 2024 Dr. Kavin Adams DO Emergency Provider Active Start : November 20, 2024 Dr. Sivakumar Nichols MD Attending Provider Active Start: November 20, 2024 Dr. Sivakumar Nichols MD Other Provider Active Star t: November 20, 2024 Goals (unrecognized section and content) Goals may be documented in a n alternate sectionGoals may be documented in an alternate sectionGoals may be documented in an alternate sectionGoals may be documented in an alternate sectionGoals may be documented in an alternate section FOR RECORDS PERTAINING TO PATIENTS WHO ARE OR HAVE BEEN ENROLLED IN A CHEMICAL DEPENDENCY/SUBSTANCEABUSE PROGRAM, SOME INFORMATION MAY BE OMITTED. This clinical summary was aggregated from multiple sources. Caution should be exercised in using it in the provision of clinical care. This summary normalizes information from multiple sources, and as a consequence, information in this document may materially change the coding, format and clinical context of patient data. In addition, data may be omitted in some cases. CLINICAL DECISIONS SHOULD BE BASED ON THE PRIMARY CLINICAL RECORDS. [facility] [employer] [facility]. provides no warranty or guarantee of the accuracy or completeness of information in this document.
[2024-11-25] MEDS: 0.9% Normal Saline (1000mL) 1,000 ML 999 ML IV (16:59)
[2024-11-25 17:00] VITALS: BMI 15.2
[2024-11-25 17:08] LABS: Hematocrit 28.4 % (37-47); Hemoglobin 9.7 g/dL (12.0-15.0); Immature Granulocytes Count 0.030 X10^3/uL (0.0-0.0); Mean Corp Hgb Conc 34.2 g/dL (32-36); Mean Corpuscular Volume 87.4 fL (81-99); Mean Platelet Vol. 9.6 fl (6.2-12.0); NRBC Flagged by Analyzer 0 % (0-5); POSITIVE MORPHOLOGY YES; Platelet Count 220 K/mm3 (150-450); RBC Distribution Width CV 13.2 % (11.6-14.6); RBC Distribution Width SD 42.5 fl (35.1-43.9); Red Blood Count 3.25 M/mm3 (4.2-5.4); White Blood Count 4.8 K/mm3 (4.4-11.0)
[2024-11-25 17:17] LABS: Differential Indicated SCAN CRITERIA MET
[2024-11-25 17:36] LABS: Anisocytosis 1+; Hypochromasia 1+
[2024-11-25 17:47] LABS: Lipase 62 U/L (13-75)
[2024-11-25 17:48] LABS: AST(SGOT) 20 U/L (<=31); Alanine Aminotransfer ALT/SGPT 10 U/L (<=34); Albumin, Serum 3.6 g/dL (3.4-4.8); Alkaline Phosphatase 58 U/L (35-104); Anion Gap 14 (5-15); BUN 17 mg/dL (4-19); BUN/Creat Ratio 26.8 RATIO (10-20); Calcium,Total 8.7 mg/dL (7.6-11.0); Carbon Dioxide 23.7 mmol/L (21.0-32.0); Chloride 96 mmol/L (98-108); Estimated Creatinine Clearance 43.17 ml/min (50-250); Globulin 3.1 g/dL (2.2-4.2); Glucose 148 mg/dL (70-99); Potassium 3.2 mmol/L (3.3-5.1)
[2024-11-25 18:10] LABS: Color, Urine Yellow (Yellow); Glucose, Dipstick Normal (Normal); Ketone-Dipstick Negative (Negative); Leukocyte Esterase-Dipstick Negative /ul (Negative); Nitrite-Dipstick Negative (Negative); Occult Blood-Urine Negative /ul (Negative); Protein-Dipstick 30 mg/dl (Negative); Red Blood Cells-Urine 0 SEEN /hpf (0-5); Specific Gravity, Urine 1.015 (1.002-1.030); Urine Bilirubin Dipstick Negative (Negative)
[2024-11-25 18:15] LABS: Squamous Epithelial Cells - UA 0-5 SEEN /hpf (5-10)
[2024-11-25 18:16] LABS: Mucous, Urine 1+ /hpf (<or=2+)
[2024-11-25 19:12] VITALS: BP 118/66; PULSE 74; RESP 16; TEMP 36.9; O2SAT 99
== END 2024-11-25 19:29 | disposition home or self-care (01) ==
PROVIDERS: Emergency Provider Emergency Medicine; Visit Provider Emergency Medicine
DX: R11.0 Nausea (principal); C78.7 Secondary malignant neoplasm of liver and intrahepatic bile duct; C18.9 Malignant neoplasm of colon, unspecified; G40.909 Epilepsy, unspecified, not intractable, without status epilepticus; F32.A Depression, unspecified; F41.9 Anxiety disorder, unspecified; Z79.899 Other long term (current) drug therapy; Z87.891 Personal history of nicotine dependence
CPT/HCPCS: 36591; 80053; 81001; 83690; 85025; 96360; 96361; 99285; A4216

== ENCOUNTER 2024-12-17 08:33 | Emergency (ER) | payer MEDICARE, SELFPAY ==
[2024-12-17 08:33] VITALS: BP 125/76; PULSE 85; RESP 14; TEMP 36.1; O2SAT 98; BMI 15.0
--- NOTE | 2024-12-17 08:48 | CT_ITS ---
PROCEDURE: ABDOMEN/PELVIS W IV CONT ONLY 12/17/2024 REASON FOR EXAM: RLQ PAIN, HX OF COLON CARCINOMA TECHNIQUE: Procedure Code: [id number] Modality: CT Procedure: ABDOMEN/PELVIS W IV CONT ONLY Coronal and Sagittal reconstruction series were provided. CONTRAST: Isovue-300 VOLUME: 95 mL One or more dose reduction techniques were used (e.g., Automated exposure control, adjustment of the mA and/or kV according to patient size, use of iterative reconstruction technique. RADIATION DOSE SUMMARY: CTDlvol: 15 point 8 mGy DLP: 240.33 mGycm COMPARISON: Prior study dated November 07, 2024. FINDINGS: Lung bases: Lung bases are clear. Liver: Since prior study, there has been an increase in the number and size of the diffuse hypodense nodules seen in both right and left lobes of the liver. This has progressed. Gallbladder: Mildly distended. There is a 6.2 mm enhancing nodule in the inferior medial wall of the gallbladder. Minimal gallbladder wall thickening. Correlation with ultrasound recommended. Spleen: Normal size. Pancreas: Normal size without evidence of mass surrounding inflammation or ductal dilation. Adrenals: Unremarkable Kidneys: Stable small bilateral renal cysts. Bladder: Unremarkable Reproductive Organs: Normal uterine size and contour. Ovaries are unremarkable. Bowel: Status post right hemicolectomy. Appendix: Not visualized. The patient is status post right hemicolectomy. Lymph nodes: Unremarkable. Vasculature: Mild diffuse atherosclerotic calcifications are noted. Peritoneum / Retroperitoneum: Unremarkable Bones: Mild degenerative changes. Straightening of the normal lumbar lordosis. CT/Abdomen/Pelvis W IV Cont ONLY IMPRESSION: Interval increase in size and number of the previously seen hypodense nodules t hroughout the liver suggestive of metastatic disease. Stable small enhancing nodule in the inferior medial wall of the gallbladder as described. Sonographic correlation recommended if clinically indicated. Reading Location: [facility]
--- NOTE | 2024-12-17 08:49 | EX.ED.DYSGE1 ---
HPI History of Present Illness Chief Complaint: Abd Pain Narrative Narrative: Chief complaint and HPI: 64-year-old female with past medical history of depression, anxiety, recurrent colon carcinoma presents for evaluation of right lower quadrant abdominal pain. Patient states in August 2023 she had acute 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 which led to a diagnosis of colon cancer. She had a right hemicolectomy. She states she had recurrence of her colon cancer in January 2024 which resulted in another colon resection. She states her femoral nerve was taken as well. Patient states she has had chronic right lower quadrant abdominal pain that is progressively worsening. It radiates to her back. She follows with Dr. Poole with oncology and she is scheduled to have a CT abdomen pelvis on . She states her pain has worsened and she cannot wait until then. Associated symptom is nausea and nonbloody emesis. Her last chemotherapy was yesterday. She receives it every 2 weeks. She denies any fever, chills, shortness of breath, chest pain, dysuria. At baseline has diarrhea. She takes Dilaudid at home as needed for pain. Last dose 8 PM. Last ate yesterday evening. Review of systems: See HPI Medications: As listed on the chart Allergies: As listed on the chart PFSH: Per chart Vital signs: As listed on the chart. Reviewed. Physical exam: Gen: A&O x3, uncomfortable secondary to the pain Head: Normocephalic, atraumatic Eyes: No sclera icterus, conjunctiva clear ENT: Moist mucous membranes CV: RRR, no murmurs, no peripheral edema, right chest port without cellulitis Resp: Lungs CTA BL, no w/r/c GI: Abd soft, non-distended, tender to palpation in the right lower quadrant, no rebound or rigidity, surgical incision healed well Musc: No deformity Skin: Warm, dry Neuro: Alert, oriented, grossly intact, sensation intact Psych: Cooperative, appropriate mood and affect [facility] Medical History Restless legs Cancer Hypotension Marijuana abuse Alcohol dependence ETOH abuse IBS (irritable bowel syndrome) Anxiety Depression Seizure Seizure disorder Home Medications ?Medication ?Instructions ?Recorded ?Last Taken ?Type alendronate 70 mg tablet 70 mg PO QWEEK Bone Health 10/18/23 Unknown History buspirone 7.5 mg tablet 7.5 mg PO DAILY Mood 10/18/23 09/04/24 08:50 History sertraline 50 mg tablet 50 mg PO DAILY Mood 10/18/23 09/04/24 08:50 History gabapentin 100 mg capsule 100 mg PO QHS 30 days #30 caps 09/12/24 Unknown Rx hydromorphone 2 mg tablet 2 - 4 mg (1 - 2 x 2 mg) PO Q4H PRN 09/12/24 11/20/24 13:00 Rx PRN PAIN 6-10 7 days #42 tabs hydroxyzine pamoate 25 mg capsule 50 mg (2 x 25 mg) PO TID PRN PRN 09/12/24 Unknown Rx Itching 30 days #90 caps methocarbamol 750 mg tablet 750 mg PO Q8 30 days #90 tabs 09/12/24 Unknown Rx ondansetron 4 mg disintegrating 4 mg PO Q8H PRN PRN Nausea 30 days 09/12/24 Unknown Rx tablet #90 tabs lorazepam 0.5 mg tablet (Ativan) 0.5 mg PO BID PRN anxiety 7 days 11/25/24 Unknown Rx #10 tabs Allergy/AdvReac Type Severity Reaction Status Date / Time erythromycin base Allergy TONGUE Verified 12/17/24 08:34 PEELS Family History Sister Melanoma Father Prostate CA Surgical History History of placement of ureteral stent History of resection of small bowel History of right salpingo-oophorectomy History of lysis of adhesions History of exploratory laparotomy 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 Social History household members: none housing: apartment Smoking Status: Former smoker alcohol intake: former year quit: 2020 substance use type: marijuana EXAM Physical Exam Const Vital Signs: 12/17/24 08:33 12/17/24 10:33 Temperature 97 F L Temperature Source Temporal Pulse Rate 85 71 Respiratory Rate 14 18 Blood Pressure 125/76 H 134/78 H Blood Pressure Mean 92 96 Pulse Ox 98 100 Oxygen Delivery Method Room Air Room Air MDM MDM MDM Narrative Medical decision making narrative: 64-year-old female with past medical history of depression, anxiety, recurrent colon carcinoma presents for evaluation of right lower quadrant abdominal pain. Patient states in August 2023 she had acute 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 which led to a diagnosis of colon cancer. She had a right hemicolectomy. She states she had recurrence of her colon cancer in January 2024 which resulted in another colon resection. She states her femoral nerve was taken as well. Patient states she has had chronic right lower quadrant abdominal pain that is progressively worsening. It radiates to her back. She follows with Dr. Poole with oncology. Associated symptom is nausea and nonbilious emesis. Differential diagnosis includes but is not limited to carcinomatosis, worsening colon cancer/metastasis, obstruction, pancreatitis, biliary pathology, colitis, UTI, urolithiasis. NS bolus, Dilaudid, Zofran ordered for symptoms. Laboratory workup ordered including CT abdomen pelvis. Patient states she is not allowed to have Zofran until 3 days after chemotherapy. Zofran discontinued. Patient okay to have Compazine. This was ordered. CBC with mild leukocytosis 11.8. Patient has baseline anemia of 9.1. Platelets unremarkable. CMP relatively unremarkable without TED, transaminitis, hyperbilirubinemia. Lactic acid unremarkable. Lipase elevated at 165. This is new from 11/25. UA negative for UTI. CT abdomen pelvis shows interval increase in size and number of the previous seen hypodense nodules throughout the liver suggestive of metastatic disease. Stable small enhancing nodule in the inferior medial wall of the gallbladder. The gallbladder is mildly distended. There is minimal gallbladder wall thickening. The nodule 6.2 mm. Correlate with ultrasound if recommended. Patient not endorsing any right upper quadrant or epigastric abdominal pain. I do not think ultrasound is needed. Her pancreas is normal in size without evidence of surrounding inflammation or ductal dilation despite her lipase being elevated. It is not 3 times normal. She status post right hemicolectomy. On reevaluation, patient reconfirms that all of her pain is in right lower quadrant. She has no pain or tenderness to the right upper quadrant or epigastrium. At this point in time, no clear etiology for patient's right lower quadrant abdominal pain. She states her femoral nerve was cut during the procedure, this may be chronic pain secondary to this. Patient requesting more pain medicine. She is received a total of 3 g of IV Dilaudid. Will reach out to her oncologist, Dr. Poole. I spoke with Dr. Jarquin who is on-call for Dr. Poole. He states that Dilaudid/opiates can sometimes increase visceral pain and this may be contributing to her increased pain. He states that palliative care writes for her Dilaudid. He states that he does not write for chronic pain management medication and therefore will not be switching or increasing the pain medicine. Recommendation is that patient could be admitted for pain control and be seen by pain management in the hospital. I did extensively inform the patient as well as all of her family about the results and the plan. I spoke with family members over the phone as well. Patient states she does not want to be admitted. She would like to discharge home and call palliative care. She states the Dilaudid has been controlling her pain at home but was not last night. She feels like her pain is controlled now that she will be fine with her home Dilaudid. I do feel this is appropriate. She was educated that she can return back to the emergency department at any time if her pain is not controlled. She was educated to follow-up with palliative care as well as oncology. I will refer her to pain management as well. She confirmed understand the plan as well as the family. Patient stable for discharge home. Impression: 1. Chronic right lower quadrant abdominal pain 2. History of recurrent metastatic colon cancer 3. Chronic anemia Lab Data Labs: Laboratory Results - last 24 hr 12/17/24 12/17/24 09:15 10:23 WBC 11.8 H RBC 3.15 L Hgb 9.1 L Hct 28.2 L MCV 89.5 MCH 28.9 MCHC 32.3 RDW Std Deviation 52.9 H RDW Coeff of Yury 16.3 H Plt Count 325 MPV 10.1 Immature Gran % (Auto) 0.500 Neut % (Auto) 82.4 H Lymph % (Auto) 7.5 L [place] % (Auto) 9.4 Eos % (Auto) 0.0 Baso % (Auto) 0.2 Absolute Neuts (auto) 9.7 H Absolute Lymphs (auto) 0.88 Nucleated RBC % 0 Sodium 136 Potassium 3.4 Chloride 101 Carbon Dioxide 23.1 Anion Gap 11 BUN 20 H Creatinine 0.56 L Estim Creat Clear Calc 42.50 L Est GFR (MDRD) Non-Af 101 BUN/Creatinine Ratio 35.0 H Glucose 120 H Lactic Acid 1.5 Calcium 9.0 Total Bilirubin 0.19 AST 25 ALT 9 Alkaline Phosphatase 109 H Total Protein 6.4 Albumin 3.4 Globulin 3.0 Albumin/Globulin Ratio 1.1 Lipase 165 H Urine Color Yellow Urine Clarity Clear Urine pH 6.0 Ur Specific [place] 1.010 Urine Protein 30 H Urine Glucose (UA) Normal Urine Ketones Negative Urine Occult Blood Negative Urine Nitrite Negative Urine Bilirubin Negative Urine Urobilinogen Normal Ur Leukocyte Esterase Negative Urine RBC 0 SEEN Urine WBC 0 SEEN Ur Squamous Epith Cells 0-5 SEEN Urine Bacteria 0 SEEN Urine Mucus 0 SEEN Radiography Diagnostic Testing: Clinical Impression(s) from Imaging Studies Abdomen/Pelvis CT 12/17/24 08:48 IMPRESSION: Interval increase in size and number of the previously seen hypodense nodules throughout the liver suggestive of metastatic disease. Stable small enhancing nodule in the inferior medial wall of the gallbladder as described. Sonographic correlation recommended if clinically indicated. Reading Location: [place] [address] Discharge Plan Triage Chief Complaint: Abd Pain ED Provider: Johnny Colunga Dx/Rx/DC Orders Prescriptions: No Action sertraline 50 mg tablet 50 mg PO DAILY alendronate 70 mg tablet 70 mg PO QWEEK Patient Comments: Take once a week on Saturdays. buspirone 7.5 mg tablet 7.5 mg PO DAILY lorazepam [Ativan] 0.5 mg tablet 0.5 mg PO BID PRN (Reason: anxiety) 7 Days Qty: 10 0RF hydromorphone 2 mg Tablet 2 - 4 mg PO Q4H PRN PRN (Reason: PAIN 6-10) 7 Days Qty: 42 0RF methocarbamol 750 mg Tablet 750 mg PO Q8 30 Days Qty: 90 0RF gabapentin 100 mg Capsule 100 mg PO QHS 30 Days Qty: 30 0RF ondansetron 4 mg Tablet,Disintegrating 4 mg PO Q8H PRN PRN (Reason: Nausea) 30 Days Qty: 90 0RF hydroxyzine pamoate 25 mg Capsule 50 mg PO TID PRN PRN (Reason: Itching) 30 Days Qty: 90 0RF Primary Care Provider: Aubrey Lopez Referrals: Aubrey Lopez, HEALTH AND SAFETY INSTRUCTOR-C [Primary Care Provider, Family Practice] Print Language: Upper Sorbian
[2024-12-17] MEDS: 0.9% Normal Saline (1000mL) 1,000 ML 999 ML IV (09:18)
[2024-12-17 09:34] LABS: Hematocrit 28.2 % (37-47); Hemoglobin 9.1 g/dL (12.0-15.0); Immature Granulocytes Count 0.060 X10^3/uL (0.0-0.0); Mean Corp Hgb Conc 32.3 g/dL (32-36); Mean Corpuscular Volume 89.5 fL (81-99); Mean Platelet Vol. 10.1 fl (6.2-12.0); NRBC Flagged by Analyzer 0 % (0-5); Platelet Count 325 K/mm3 (150-450); RBC Distribution Width CV 16.3 % (11.6-14.6); RBC Distribution Width SD 52.9 fl (35.1-43.9); Red Blood Count 3.15 M/mm3 (4.2-5.4); White Blood Count 11.8 K/mm3 (4.4-11.0)
[2024-12-17 10:02] LABS: AST(SGOT) 25 U/L (<=31); Alanine Aminotransfer ALT/SGPT 9 U/L (<=34); Albumin, Serum 3.4 g/dL (3.4-4.8); Alkaline Phosphatase 109 U/L (35-104); Anion Gap 11 (5-15); BUN 20 mg/dL (4-19); BUN/Creat Ratio 35.0 RATIO (10-20); Calcium,Total 9.0 mg/dL (7.6-11.0); Carbon Dioxide 23.1 mmol/L (21.0-32.0); Chloride 101 mmol/L (98-108); Estimated Creatinine Clearance 42.50 ml/min (50-250); Globulin 3.0 g/dL (2.2-4.2); Glucose 120 mg/dL (70-99); Lipase 165 U/L (13-75); Potassium 3.4 mmol/L (3.3-5.1)
[2024-12-17 10:33] VITALS: BP 134/78; PULSE 71; RESP 18; O2SAT 100
[2024-12-17 10:33] LABS: Mucous, Urine 0 SEEN /hpf (<or=2+); Red Blood Cells-Urine 0 SEEN /hpf (0-5)
[2024-12-17 10:46] LABS: Color, Urine Yellow (Yellow); Glucose, Dipstick Normal (Normal); Ketone-Dipstick Negative (Negative); Leukocyte Esterase-Dipstick Negative /ul (Negative); Nitrite-Dipstick Negative (Negative); Occult Blood-Urine Negative /ul (Negative); Protein-Dipstick 30 mg/dl (Negative); Specific Gravity, Urine 1.010 (1.002-1.030); Urine Bilirubin Dipstick Negative (Negative)
[2024-12-17 10:56] LABS: Squamous Epithelial Cells - UA 0-5 SEEN /hpf (5-10)
[2024-12-17 12:16] VITALS: BP 124/76; PULSE 71; RESP 18; TEMP 37.1; O2SAT 99
== END 2024-12-17 12:17 | disposition home or self-care (01) ==
PROVIDERS: Emergency Provider Surgery; Visit Provider Surgery
DX: R10.31 Right lower quadrant pain (principal); C18.9 Malignant neoplasm of colon, unspecified; R11.2 Nausea with vomiting, unspecified; D64.9 Anemia, unspecified; G89.29 Other chronic pain; R19.7 Diarrhea, unspecified; F32.A Depression, unspecified; F41.9 Anxiety disorder, unspecified; Z79.899 Other long term (current) drug therapy; Z90.49 Acquired absence of other specified parts of digestive tract; Z87.891 Personal history of nicotine dependence
CPT/HCPCS: 36591; 74177; 80053; 81001; 83605; 83690; 85025; 96361; 96374; 96375; 96376; 99284; Q9967; A4216; J2405

== ENCOUNTER 2025-01-19 03:17 | Inpatient (IN) | payer MEDICARE, SELFPAY ==
[2025-01-19] VITALS (11 sets, daily range): BP systolic 91–132; BP diastolic 49–83; PULSE 77–101; RESP 16–18; TEMP 36.1–36.8; O2SAT 94–100; BMI 14.3; BMI 13.3
--- NOTE | 2025-01-19 03:26 | EX.ED.DYSGE1 ---
HPI History of Present Illness Chief Complaint: Nausea/Vomiting/Diarrhea Informant: patient Onset/Context/Timing Onset: Hours (2) Context: Sudden Onset Timing: Continuous Quality: Sharp Location: Right lower quadrant Worsened by: Nothing Relieved by: Pain medication Narrative Narrative: Patient presents with nausea, vomiting, and diarrhea that began approximately 2 hours prior to arrival. Patient states she underwent chemotherapy earlier this week. Patient states she has been unable to keep anything down. Patient admits to some pain in her right lower abdomen. Patient describes it as sharp. Patient states he gets better with pain medication. Patient states nothing makes it worse. Patient states her diarrhea is watery. Patient denies any melena or hematochezia. Patient denies any hematemesis or coffee-ground emesis. Patient denies any urinary complaints. Patient states her pain does radiate into her back. [facility] Medical History Restless legs Cancer Hypotension Marijuana abuse Alcohol dependence ETOH abuse IBS (irritable bowel syndrome) Anxiety Depression Seizure Seizure disorder Home Medications ?Medication ?Instructions ?Recorded ?Last Taken ?Type buspirone 7.5 mg tablet 7.5 mg PO DAILY Mood 10/18/23 09/04/24 08:50 History sertraline 50 mg tablet 50 mg PO DAILY Mood 10/18/23 09/04/24 08:50 History gabapentin 100 mg capsule 100 mg PO QHS 30 days #30 caps 09/12/24 Unknown Rx hydromorphone 2 mg tablet 2 - 4 mg (1 - 2 x 2 mg) PO Q4H PRN 09/12/24 11/20/24 13:00 Rx PRN PAIN 6-10 7 days #42 tabs methocarbamol 750 mg tablet 750 mg PO Q8 30 days #90 tabs 09/12/24 Unknown Rx ondansetron 4 mg disintegrating 4 mg PO Q8H PRN PRN Nausea 30 days 09/12/24 Unknown Rx tablet #90 tabs Allergy/AdvReac Type Severity Reaction Status Date / Time erythromycin base Allergy TONGUE Verified 01/19/25 03:58 HALIMA Family History Sister Melanoma Father Prostate CA Surgical History History of placement of ureteral stent History of resection of small bowel History of right salpingo-oophorectomy History of lysis of adhesions History of exploratory laparotomy 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 Social History household members: none housing: apartment Smoking Status: Former smoker alcohol intake: former year quit: 2020 substance use type: marijuana ROS ROS ED Constitutional Constitutional ED: Denies chills or fever(s) Eyes Eyes: Denies blurry vision or change in vision ENT ENT ED: Reports rhinorrhea; Denies sore throat Cardiovascular Cardiovascular: Denies chest pain or palpitations Respiratory/Chest Respiratory/Chest: Denies cough or dyspnea Gastrointestinal Gastrointestinal: Reports abdominal pain, diarrhea, nausea and vomiting Genitourinary Genitourinary ED: Denies dysuria or hematuria Musculoskeletal Musculoskeletal: Reports back pain; Denies neck pain Integumentary Denies abscess or rash Neurologic Neurologic: Denies headache(s) or weakness Allergic/Immunologic Allergic/Immunologic ED: Denies mouth swelling or urticaria EXAM Physical Exam Const Vital Signs: 01/19/25 03:18 01/19/25 04:23 01/19/25 05:00 Temperature 97.9 F 97.9 F 97.9 F Temperature Source Axillary Temporal Temporal Pulse Rate 85 91 85 Respiratory Rate 18 18 18 Blood Pressure 132/83 H 101/58 L 91/49 L Blood Pressure Mean 99 72 63 Pulse Ox 100 96 99 Oxygen Delivery Method Room Air Room Air 01/19/25 05:18 01/19/25 06:00 Temperature 98.0 F Temperature Source Temporal Pulse Rate 87 Respiratory Rate 18 Blood Pressure 91/49 L 106/63 Blood Pressure Mean 63 77 Pulse Ox 95 100 Oxygen Delivery Method Room Air Positive well developed and cachectic Constitutional Narrative: BMI is 14.4. General Appearance ED: well developed, cachectic and NAD Nutritional Appearance: cachectic HEENT Reports dry mucous membranes Mouth ED: Yes dry mucous membranes Mouth: dry mucous membranes Neck supple and no JVD Resp normal respiratory effort and clear to auscultation bilaterally Cardio regular rate GI non-distended Palpation: soft and tender epigastric, LLQ, RLQ, LUQ, RUQ, periumbilical and suprapubic; Negative for guarding or rebound tenderness present Neuro oriented x3, CN's II-XII intact bilaterally and no sensory deficits noted Sensorium / Orientation: alert Motor Exam: strength 5/5 throughout Psych mental status grossly normal MDM MDM MDM Narrative Medical decision making narrative: Differential diagnosis includes but is not limited to bowel obstruction, perforation, chemotherapy-induced nausea and vomiting, pancreatitis, dehydration, electrolyte abnormality, and viral illness. CBC will be obtained to assess for leukocytosis and anemia. Comprehensive metabolic profile will be obtained to assess for hepatic function, renal function, and electrolyte abnormality. Lipase will be obtained to assess for pancreatitis. History & Record Review Additional record(s) reviewed:: Prior outpatient record, Prior ED visit and Prior labs Lab Data Attestation: I reviewed the patient's lab results. Lab results narrative: CBC was reviewed. There is a mild anemia with a hemoglobin of 11.1 and hematocrit 35.1. Platelets were normal. Comprehensive metabolic profile was reviewed. Potassium is low at 2.8 and chloride was low at 92. Anion gap was slightly elevated at 23. BUN was elevated at 25. Creatinine was normal at 1.03. Glucose was elevated at 302. Lipase was reviewed and was normal at 24. Because of the elevated anion gap and hyperglycemia, beta hydroxybutyrate was reviewed and was slightly elevated at 2.4. Lactate was reviewed and was less than 1.0. PT with INR and PTT were reviewed. Pro time was 15.3 and INR is 1.2. PTT was normal at 31.7. Urinalysis was reviewed. Leukocyte Estrace was 25 with 5-10 white blood cells. There is 2+ bacteria. Labs: Laboratory Results - last 24 hr 01/19/25 01/19/25 01/19/25 03:45 05:54 06:00 WBC 5.6 RBC 3.99 L Hgb 11.1 L Hct 35.1 L MCV 88.0 MCH 27.8 MCHC 31.6 L RDW Std Deviation 50.7 H RDW Coeff of [place] 15.8 H Plt Count 406 MPV 10.3 Immature Gran % (Auto) 0.500 Neut % (Auto) 61.7 Lymph % (Auto) 19.2 [place] % (Auto) 15.9 H Eos % (Auto) 1.1 Baso % (Auto) 1.6 H Absolute Neuts (auto) 3.4 Absolute Lymphs (auto) 1.07 Nucleated RBC % 0 PT 15.3 H INR 1.2 APTT 31.7 Sodium 138 Potassium 2.8 L Chloride 92 L Carbon Dioxide 23.2 Anion Gap 23 H BUN 25 H Creatinine 1.03 Estim Creat Clear Calc 31.72 L Est GFR (MDRD) Non-Af 60 BUN/Creatinine Ratio 24.0 H Glucose 302 H Lactic Acid < 1.0 Calcium 8.9 Total Bilirubin 0.34 AST 30 ALT 6 Alkaline Phosphatase 121 H Total Protein 6.9 Albumin 3.6 Globulin 3.4 Albumin/Globulin Ratio 1.1 Lipase 24 b-Hydroxybutyric mmol/L 2.4 H Urine Color Urine Clarity Urine pH Ur Specific [place] Urine Protein Urine Glucose (UA) Urine Ketones Urine Occult Blood Urine Nitrite Urine Bilirubin Urine Urobilinogen Ur Leukocyte Esterase Urine RBC Urine WBC Ur Squamous Epith Cells Urine Bacteria Urine Mucus 01/19/25 06:10 WBC RBC Hgb Hct MCV MCH MCHC RDW Std Deviation RDW Coeff of [place] Plt Count MPV Immature Gran % (Auto) Neut % (Auto) Lymph % (Auto) [place] % (Auto) Eos % (Auto) Baso % (Auto) Absolute Neuts (auto) Absolute Lymphs (auto) Nucleated RBC % PT INR APTT Sodium Potassium Chloride Carbon Dioxide Anion Gap BUN Creatinine Estim Creat Clear Calc Est GFR (MDRD) Non-Af BUN/Creatinine Ratio Glucose Lactic Acid Calcium Total Bilirubin AST ALT Alkaline Phosphatase Total Protein Albumin Globulin Albumin/Globulin Ratio Lipase b-Hydroxybutyric mmol/L Urine Color Yellow Urine Clarity Clear Urine pH 6.5 Ur Specific [place] 1.010 Urine Protein 30 H Urine Glucose (UA) Normal Urine Ketones 50 H Urine Occult Blood 10 H Urine Nitrite Negative Urine Bilirubin Negative Urine Urobilinogen Normal Ur Leukocyte Esterase 25 H Urine RBC 0-5 SEEN Urine WBC 5-10 SEEN Ur Squamous Epith Cells 0-5 SEEN Urine Bacteria 2+ Urine Mucus 0 SEEN ABG Data ABG results: ABG 01/19/25 05:57 Specimen Type ART Sample Site L Radial pH 7.41 Bicarbonate Actual 30.3 H Total CO2 32 Base Excess 6 H O2 Saturation 90 L ABG pCO2 47.5 H ABG pO2 59 L Denny Test Positive O2 Delivery Device Room Air Vent Mode Not entered Radiography Diagnostic Testing: Clinical Impression(s) from Imaging Studies Abdomen/Pelvis CT 01/19/25 03:41 IMPRESSION: Interval appearance of ground-glass densities in the left lower lobe, possibly developing pneumonia. No significant change in the number of the previously described hypodense metastatic lesions. Increased hypodensity of the previously described hypodense metastatic liver lesions, possibly presenting necrosis from treatment. Unchanged 6.2 mm enhancing nodule in the inferior medial wall of the gallbladder. Unchanged mild diffuse thickening of the wall of the gallbladder. Mild gastroparesis/gastritis. Mild calcified atheromatous plaques of the aorta and iliac arteries. Unchanged cliff hepatis lymph nodes with the largest measuring 1.2 cm. Unchanged 2.8 cm heterogeneous necrotic lymph node/mesenteric metastatic mass in the right lower quadrant, probably secondary to metastatic disease. Right hemicolectomy, unchanged. Mild diffuse thickening of the colon, increased, probably colitis without perforation or pneumatosis coli. Left renal simple cyst measuring 1.5 cm, unchanged. Mild diffuse thickening of the bladder suggestive of mild cystitis. Reading Location: [place] [address] CT scan of the abdomen pelvis was obtained. There is ground glass density in the left lower lobe possibly developing pneumonia. There are metastatic lesions noted in the liver which are unchanged. There is mild diffuse thickening of the colon probably colitis. This was interpreted by the radiologist and was also independently reviewed by myself. Management Discussion w/another healthcare provider: Hospitalist Additional Tests and Interventions Additional Tests or Interventions: Because of the low blood pressure, elevated anion gap, hyperglycemia, and hypokalemia, arterial blood gas was ordered. Serum lactate was ordered. Serum beta hydroxybutyrate was ordered. Blood cultures and urine cultures were ordered. Treatment and Re-Evaluation :: Patient was given IV fluids, Compazine, and Dilaudid. Patient's blood pressure dropped after this. Patient was given a repeat bolus of normal saline. Patient's blood pressure improved after this. Patient was started on Levaquin. Patient was given a dose of oral and IV potassium. Patient was complaining of sores in her mouth. Patient was given viscous lidocaine for this. Patient was advised that since her blood pressure is low, further opiate analgesics would make her blood pressure worse. Patient understands and is agreeable with the plan. Case was discussed with the hospitalist. He will admit the patient to his service. He recommended adding on vancomycin and metronidazole. These were ordered. Discharge Plan Dx/Rx/DC Orders Clinical Impression: Pneumonia, Dehydration, Hypokalemia, History of Clostridioides difficile colitis, Urinary tract infection Disposition Disposition: Acute Care Hospital [facility]
--- NOTE | 2025-01-19 03:41 | CT_ITS ---
PROCEDURE: ABDOMEN/PELVIS W IV CONT ONLY 01/19/2025 REASON FOR EXAM: ABDOMINAL PAIN TECHNIQUE: Procedure Code: [id number] Modality: CT Procedure: ABDOMEN/PELVIS W IV CONT ONLY Coronal and Sagittal reconstruction series were provided. CONTRAST: OMNIPAQUE 350 VOLUME: 100 mL One or more dose reduction techniques were used (e.g., Automated exposure control, adjustment of the mA and/or kV according to patient size, use of iterative reconstruction technique. RADIATION DOSE SUMMARY: CTDlvol: 4.42 mGy DLP: 191 mGycm COMPARISON: CT scan on 12/17/2024. FINDINGS: Interval appearance of ground-glass densities in the left lower lobe, possibly developing pneumonia. No significant change in the number of the previously described hypodense metastatic lesions. Increased hypodensity of the previously described hypodense metastatic liver lesions, possibly presenting necrosis from treatment. Unchanged 6.2 mm enhancing nodule in the inferior medial wall of the gallbladder. Unchanged mild diffuse thickening of the wall of the gallbladder. Mild gastroparesis/gastritis. Mild calcified atheromatous plaques of the aorta and iliac arteries. Unchanged cliff hepatis lymph nodes with the largest measuring 1.2 cm. Unchanged 2.8 cm heterogeneous necrotic lymph node/mass in the right lower quadrant, probably secondary to metastatic disease. Right hemicolectomy, unchanged. Mild diffuse thickening of the colon, increased, probably colitis without perforation or pneumatosis coli. Left renal simple cyst measuring 1.5 cm, unchanged. Mild diffuse thickening of the bladder suggestive of mild cystitis. Normal extrahepatic biliary system. Normal spleen. Normal pancreas. Normal bilateral adrenal glands. Normal size of the right kidney. There is no right renal mass. There are no right renal calculi. There is no right hydronephrosis. Normal visualized right ureter. Normal size of the left kidney. There is no left renal mass. There are no left renal calculi. There is no left hydronephrosis. Normal visualized left ureter. There is no demonstrated peritoneal fluid. Normal inferior vena cava. Normal retroperitoneum. There is no pelvic fluid. Normal abdominal wall. Mild osteopenia. Mild diffuse spondylosis. CT/Abdomen/Pelvis W IV Cont ONLY IMPRESSION: Interval appearance of ground-glass densities in the left lower lobe, possibly developing pneumonia. No significant change in the number of the previously described hypodense metas tatic lesions. Increased hypodensity of the previously described hypodense metastatic liver le sions, possibly presenting necrosis from treatment. Unchanged 6.2 mm enhancing nodule in the inferior medial wall of the gallbladde r. Unchanged mild diffuse thickening of the wall of the gallbladder. Mild gastroparesis/gastritis. Mild calcified atheromatous plaques of the aorta and iliac arteries. Unchanged cliff hepatis lymph nodes with the largest measuring 1.2 cm. Unchanged 2.8 cm heterogeneous necrotic lymph node/mesenteric metastatic mass i n the right lower quadrant, probably secondary to metastatic disease. Right hemicolectomy, unchanged. Mild diffuse thickening of the colon, increased, probably colitis without perfo ration or pneumatosis coli. Left renal simple cyst measuring 1.5 cm, unchanged. Mild diffuse thickening of the bladder suggestive of mild cystitis. Reading Location: [id number]
[2025-01-19] MEDS: 0.9% Normal Saline (1000mL) 1,000 ML 999 ML IV (03:48)
[2025-01-19 03:50] LABS: Hematocrit 35.1 % (37-47); Hemoglobin 11.1 g/dL (12.0-15.0); Immature Granulocytes Count 0.030 X10^3/uL (0.0-0.0); Mean Corp Hgb Conc 31.6 g/dL (32-36); Mean Corpuscular Volume 88.0 fL (81-99); Mean Platelet Vol. 10.3 fl (6.2-12.0); NRBC Flagged by Analyzer 0 % (0-5); Platelet Count 406 K/mm3 (150-450); RBC Distribution Width CV 15.8 % (11.6-14.6); RBC Distribution Width SD 50.7 fl (35.1-43.9); Red Blood Count 3.99 M/mm3 (4.2-5.4); White Blood Count 5.6 K/mm3 (4.4-11.0)
[2025-01-19 04:11] LABS: AST(SGOT) 30 U/L (<=31); Alanine Aminotransfer ALT/SGPT 6 U/L (<=34); Albumin, Serum 3.6 g/dL (3.4-4.8); Alkaline Phosphatase 121 U/L (35-104); Anion Gap 23 (5-15); BUN 25 mg/dL (4-19); BUN/Creat Ratio 24.0 RATIO (10-20); Calcium,Total 8.9 mg/dL (7.6-11.0); Carbon Dioxide 23.2 mmol/L (21.0-32.0); Chloride 92 mmol/L (98-108); Estimated Creatinine Clearance 31.72 ml/min (50-250); Globulin 3.4 g/dL (2.2-4.2); Glucose 302 mg/dL (70-99); Lipase 24 U/L (13-75); Potassium 2.8 mmol/L (3.3-5.1)
[2025-01-19] MEDS: Potassium Chloride 10mEq/100mL 10 MEQ/100 ML IV.SOLN. 100 MEQ IV BOLUS ×2 (04:34→05:47)
--- NOTE | 2025-01-19 05:17 | HP.PCM.HOS_ITS ---
[facility] - General General Date of Admission: 01/19/25 Date of Service: 01/19/25 Chief Complaint: Abdominal Pain, Nausea, Vomiting and Diarrhea. HPI Narrative MICK KOCH, is a 64 F with a past medical history of seizure disorder; currently not on treatment, CAD; s/p STEMI, history of cardiac arrest with ventricular fibrillation, history of colon cancer; s/p Right hemicolectomy at [facility] on FOLFOX chemotherapy with last dose earlier this week in the setting of known hepatic metastases followed by Dr. Poole, history of Clostridium difficile colitis, chronic anemia, neuropathy; on gabapentin nightly, history of depression with anxiety; on buspirone, sertraline and lorazepam BID prn, history of alcohol abuse (sober since 2020), history of cannabis abuse, former tobacco abuse, history of hyponatremia, history of acute 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 with appendiceal abscess (08/2023), IBS, history of ureteral stent, history of chronic severe protein calorie malnutrition, OA; s/p total shoulder replacement, chronic pain; on hydromorphone q. 4 hours prn, muscle spasms; on methocarbamol TID, admission here from August 24, 2023 to August 25, 2023 for treatment of seizure with valproic acid toxicity and hypotension and most recent admission here from November 07, 2024 to November 08, 2024 for treatment of colitis of the transverse and descending colon with abdominal pain and diarrhea with hypokalemia of 3 mmol/L and leukocytosis of 19K and C. difficile toxin negative - but antigen positive with patient discharged on 10 days of oral vancomycin who re-presents to [facility] ER complaining of who presents to [facility] ER complaining of abdominal pain, nausea, vomiting and diarrhea. Ms. Koch reports her symptoms began approximately 2 hours prior to arrival with the abrupt-onset of nausea and vomiting followed by non-bloody, watery diarrhea. Since that time she claims she has been unable to tolerate oral intake. She also admits to abdominal pain that is diffuse but most focused in her Right lower quadrant that is sharp, radiates into her back and is only improved after pain medications with nothing making it worse. She admits to runny nose but she denies associated fever, chills, sore throat, ear pain, chest pain, palpitations, heart racing, lower extremity edema, SOB, cough, dysuria, hematuria, headache or rash. In the ER she was noted to have Nausea and Vomiting with Abdominal Pain causing Hypotension of 91/49 mmHg shortly after admission complicated by Hypokalemia of 2.8 mmol/L and Dehydration; with BUN/creatinine ratio of 24 both present on admission with Hyperglycemia of 302 mg/dL present on admission all likely due to suspected Adverse Drug Reaction to chemotherapy with CT scan of the abdomen and pelvis that revealed interval appearance of ground-glass densities in the Left lower lobe, possibly developing Pneumonia with no significant change in number of previously described hypodense metastatic liver lesions, possibly representing necrosis from treatment with unchanged ~6.2 mm enhancing nodule in the inferior wall of the gallbladder and unchanged mild diffuse thickening of the wall of the gallbladder along with mild diffuse thickening of the colon, increased, probably Colitis without perforation or pneumatosis coli plus mild diffuse thickening of the bladder suggestive of mild cystitis. She was then admitted to the PCU for ongoing care for stated is expected to extend beyond 2 midnights. [facility] Medical History (Updated 01/19/25 @ 07:[address] Doni Caballero, ) Hypotension Restless legs Cancer Marijuana abuse Alcohol dependence ETOH abuse IBS (irritable bowel syndrome) Anxiety Depression Seizure Seizure disorder Home Medications ?Medication ?Instructions ?Recorded ?Last Taken ?Type buspirone 7.5 mg tablet 7.5 mg PO DAILY Mood 4 09/04/24 08:50 History sertraline 50 mg tablet 50 mg PO DAILY Mood 10/18/23 09/04/24 08:50 History gabapentin 100 mg capsule 100 mg PO QHS 30 days #30 ca ps 09/12/24 Unknown Rx hydromorphone 2 mg tablet 2 - 4 mg (1 - 2 x 2 mg) PO Q 4H PRN 09/12/24 11/20/24 13:00 Rx PRN PAIN 6-10 7 days #42 tabs methocarbamol 750 mg tablet 750 mg PO Q8 30 days #90 t abs 09/12/24 Unknown Rx ondansetron 4 mg disintegrating 4 mg PO Q8H PRN PRN Na usea 30 days 09/12/24 Unknown Rx tablet #90 tabs Allergy/AdvReac Type Severity Reaction Status Date / Time erythromycin base Allergy TONGUE Verified 01/19/25 03:58 PEELS Family History Sister Melanoma Father Prostate CA Surgical History History of placement of ureteral stent History of resection of small bowel History of right salpingo-oophorectomy History of lysis of adhesions History of exploratory laparotomy 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 Social History household members: none housing: apartment Smoking Status: Former smoker alcohol intake: former year quit: 2020 substance use type: marijuana ROS ROS Narrative Review of Systems: Constitutional: Patient denies fever or chills. Eyes: Patient denies changes in vision or discharge from eyes. ENT: Patient admits to runny nose but she denies sore throat or ear pain. Resp: Patient denies shortness of breath or cough. CV: Patient denies chest pain, palpitations, heart racing or lower extremity edema. GI: Patient admits to diffuse abdominal pain most focused in the RLQ radiating in to her back with nausea, vomiting and watery diarrhea as per HPI. : Patient denies dysuria or hematuria. MSK: Patient admits to back pain as per HPI. Skin: Patient denies rash, abscess, wounds or jaundice. Psych: Patient denies symptoms of uncontrolled depression or anxiety. Neuro: Patient denies headache, paresthesias or focal neurologic deficits. Allergy: Patient denies lip swelling, tongue swelling or urticaria. Hematology: Patient denies easy bleeding or easy bruisability. Endocrinology: Patient denies polyuria, polydipsia, polyphagia or heat/cold intolerance. 14 point ROS otherwise negative except for positives noted above in HPI. Vital Signs Vital Signs Vital Signs: 01/19/25 03:18 01/19/25 04:23 01/19/25 05:00 Temperature 97.9 F 97.9 F 97.9 F Temperature Source Axillary Temporal Temporal Pulse Rate 85 91 85 Respiratory Rate 18 18 18 Blood Pressure 132/83 H 101/58 L 91/49 L Blood Pressure Mean 99 72 63 Pulse Ox 100 96 99 Oxygen Delivery Method Room Air Room Air Weight Weight: 81 lb 5.609 oz Body Mass Index (BMI) 14.3 Physical Exam Const alert and oriented x3 Constitutional Narrative: Mild distress noted in cachectic female who appears older than her stated age. General Appearance: cooperative HEENT normocephalic, head/scalp atraumatic and hearing grossly normal bilaterally HEENT Narrative: Mucous membranes dry. Eyes PERRL, EOMs intact bilaterally and conjunctivae normal Neck no lymphadenopathy, supple and no JVD Resp normal respiratory effort, no retractions, no use of accessory muscles and clear to auscultation bilaterally Cardio regular rate and regular rhythm GI soft to palpation and non-distended GI Narrative: Abdomen diffusely TTP with no evidence of guarding or rebound. Extremity normal to inspection, full ROM and no clubbing, cyanosis or edema Skin Skin Narrative: Patient has no evidence of rash, abscess, wounds or jaundice. Neuro oriented x3, CN's II-XII intact bilaterally, moves all extremities and no focal motor deficits Sensorium / Orientation: awake, alert, oriented to person, oriented to place and oriented to time Speech: speech normal Psych affect normal Results Medical Records Data Attestation: I reviewed the patient's medical records Lab / Micro Data Attestation: I reviewed the patient's lab results. 01/19/25 03:45 01/19/25 03:45 Labs: Laboratory Results - last 24 hr 01/19/25 03:45: WBC 5.6, RBC 3.99 L, Hgb 11.1 L, Hct 35.1 L, MCV 88.0, MCH 27.8, MCHC 31.6 L, RDW Std Deviation 50.7 H, RDW Coeff of Yury 15.8 H, Plt Count 406, MPV 10.3, Immature Gran % (Auto) 0.500, Neut % (Auto) 61.7, Lymph % (Auto) 19.2, Mcminn % (Auto) 15.9 H, Eos % (Auto) 1.1, Baso % (Auto) 1.6 H, Absolute Neuts (auto) 3.4, Absolute Lymphs (auto) 1.07, Nucleated RBC % 0, Sodium 138, P otassium 2.8 L, Chloride 92 L, Carbon Dioxide 23.2, Anion Gap 23 H, BUN 25 H, Creatinine 1.03, Estim Creat Clear Calc 31.72 L, Est GFR (MDRD) Non-Af 60, B UN/Creatinine Ratio 24.0 H, Glucose 302 H, Calcium 8.9, Total Bilirubin 0.34, AST 30, ALT 6, Alkaline Phosphatase 121 H, Total Protein 6.9, Albumin 3.6, Globulin 3.4, Albumin/Globulin Ratio 1.1, Lipase 24 Imaging [facility] Imaging Services [address] [place] [address] Abdomen/Pelvis W IV Cont ONLY MR#: [id number] Acct: [id number] Name: MICK KOCH Rep #: [id number] : 1960 F 64 From: Pia Cedeno MD PCP: Aubrey Lopez [facility] [employer] [employer] [facility] Status: REG ER Study: Abdomen/Pelvis W IV Cont ONLY Date of Exam: 01/19/25 Exam# [id number] Ordering Dr: Siddhartha Ahmadi DO PROCEDURE: ABDOMEN/PELVIS W IV CONT ONLY 01/19/2025 REASON FOR EXAM: ABDOMINAL PAIN TECHNIQUE: Procedure Code: [id number] Modality: CT Procedure: ABDOMEN/PELVIS W IV CONT ONLY Coronal and Sagittal reconstruction series were provided. CONTRAST: OMNIPAQUE 350 VOLUME: 100 mL One or more dose reduction techniques were used (e.g., Automated exposure control, adjustment of the mA and/or kV according to patient size, use of iterative reconstruction technique. RADIATION DOSE SUMMARY: CTDlvol: 4.42 mGy DLP: 191 mGycm COMPARISON: CT scan on 12/17/2024. FINDINGS: Interval appearance of ground-glass densities in the left lower lobe, possibly developing pneumonia. No significant change in the number of the previously described hypodense metastatic lesions. Increased hypodensity of the previously described hypodense metastatic liver lesions, possibly presenting necrosis from treatment. Unchanged 6.2 mm enhancing nodule in the inferior medial wall of the gallbladder. Unchanged mild diffuse thickening of the wall of the gallbladder. Mild gastroparesis/gastritis. Mild calcified atheromatous plaques of the aorta and iliac arteries. Unchanged cliff hepatis lymph nodes with the largest measuring 1.2 cm. Unchanged 2.8 cm heterogeneous necrotic lymph node/mass in the right lower quadrant, probably secondary to metastatic disease. Right hemicolectomy, unchanged. Mild diffuse thickening of the colon, increased, probably colitis without perforation or pneumatosis coli. Left renal simple cyst measuring 1.5 cm, unchanged. Mild diffuse thickening of the bladder suggestive of mild cystitis. Normal extrahepatic biliary system. Normal spleen. Normal pancreas. Normal bilateral adrenal glands. Normal size of the right kidney. There is no right renal mass. There are no right renal calculi. There is no right hydronephrosis. Normal visualized right ureter. Normal size of the left kidney. There is no left renal mass. There are no left renal calculi. There is no left hydronephrosis. Normal visualized left ureter. There is no demonstrated peritoneal fluid. Normal inferior vena cava. Normal retroperitoneum. There is no pelvic fluid. Normal abdominal wall. Mild osteopenia. Mild diffuse spondylosis. CT/Abdomen/Pelvis W IV Cont ONLY IMPRESSION: Interval appearance of ground-glass densities in the left lower lobe, possibly developing pneumonia. No significant change in the number of the previously described hypodense metastatic lesions. Increased hypodensity of the previously described hypodense metastatic liver lesions, possibly presenting necrosis from treatment. Unchanged 6.2 mm enhancing nodule in the inferior medial wall of the gallbladder. Unchanged mild diffuse thickening of the wall of the gallbladder. Mild gastroparesis/gastritis. Mild calcified atheromatous plaques of the aorta and iliac arteries. Unchanged cliff hepatis lymph nodes with the largest measuring 1.2 cm. Unchanged 2.8 cm heterogeneous necrotic lymph node/mesenteric metastatic mass in the right lower quadrant, probably secondary to metastatic disease. Right hemicolectomy, unchanged. Mild diffuse thickening of the colon, increased, probably colitis without perforation or pneumatosis coli. Left renal simple cyst measuring 1.5 cm, unchanged. Mild diffuse thickening of the bladder suggestive of mild cystitis. [facility] CC: Dr. Siddhartha Ahmadi, DO; [place] [facility] [facility] Beam ~ Magnetic Tape Winder: Signed Assessment & Plan Assessment/Plan (1) Pneumonia: QUALIFIERS: Laterality: left Lung location: lower lobe of lung P neumonia type: due to unspecified organism Qualified Code(s): J18.9 - Pneumonia, unspecified organism (2) Colitis: (3) History of Clostridioides difficile colitis: (4) Nausea and vomiting: QUALIFIERS: Vomiting type: bilious vomiting Qualified Code(s): R 11.14 - Bilious vomiting (5) Abdominal pain: QUALIFIERS: Abdominal location: generalized Qualified Code(s): R 10.84 - Generalized abdominal pain (6) Hypotension: QUALIFIERS: Hypotension type: unspecified hypotension type Q ualified Code(s): I95.9 - Hypotension, unspecified (7) Dehydration: (8) Hypokalemia: (9) Hyperglycemia: (10) Adverse drug reaction: QUALIFIERS: Encounter type: initial encounter Qualified Code(s): T50.905A - Adverse effect of unspecified drugs, medicaments and biological substances, initial encounter (11) Severe malnutrition: PLAN: Plan 1. Nausea and Vomiting with Abdominal Pain causing Hypotension of 91/49 mmHg shortly after admission with CT scan of the abdomen and pelvis that revealed i nterval appearance of ground-glass densities in the Left lower lobe, possibly developing Pneumonia (likely due to aspiration) with no significant change in number of previously described hypodense metastatic liver lesions, possibly representing necrosis from treatment with unchanged ~6.2 mm enhancing nodule in the inferior wall of the gallbladder and unchanged mild diffuse thickening of the wall of the gallbladder along with mild diffuse thickening of the colon, increased, probably Colitis without perforation or pneumatosis coli plus mild diffuse thickening of the bladder suggestive of mild cystitis - Admit to PCU. Start empiric IV vancomycin, IV levofloxacin and IV metronidazole and await culture & sensitivity data. Check urinary antigens to Streptococcus pneumonia and Legionella. Give acetaminophen prn for [id number] (level 1-5/10) pain or fever. Give hydromorphone IV prn for severe (level 6-10/10) pain. Patient was not suspected to have sepsis at time of admission as she was afebrile with normal WBC, no Left-shift and normal lactic acid level in addition to marked improvement in her blood pressure to 106/63 mmHg after 2L NS IV fluid bolus. 2. Dehydration; with BUN/creatinine ratio of 24 present on admission due to #1 - Aggressively volume resuscitate and check renal indices daily to confirm volume repletion. 3. Hypokalemia of 2.8 mmol/L present on admission complicating #1 & #2 - Give supplemental KCl and then recheck level in AM to follow trend for improvement. 4. Hyperglycemia of 302 mg/dL present on admission compounding #1 - #3 - Check HgbA1c to assess for underlying DM-2. 5. Adverse Drug Reaction to chemotherapy used to treat colon cancer; s/p Right hemicolectomy at [facility] on FOLFOX chemotherapy with last dose earlier this week in the setting of known hepatic metastases followed by Dr. Poole adding to the medical complexity of #1 - #4 - Noted with similar pattern of illness on this admission. 6. History of chronic severe protein calorie malnutrition adding to the burden of disease with Cachexia and BMI of 14.4 this admission outlined from #1 - #5 - Noted with suspected malnutrition. Therefore, we will consult clinical dietitian to see this patient on-rounds in the AM for further recommendations with help appreciated in advance. 7. Most recent admission here from November 07, 2024 to November 08, 2024 for treatment of colitis of the transverse and descending colon with abdominal pain and diarrhea with hypokalemia of 3 mmol/L and leukocytosis of 19K and C. difficile toxin negative - but antigen positive with patient discharged on 10 days of oral vancomycin in the setting of known IBS - Noted. 8. History of admission here from August 24, 2023 to August 25, 2023 for treatment of seizure with valproic acid toxicity and hypotension - Noted. 9. History of seizure disorder; currently not on treatment - Noted with patient stating she was told she does not have seizures - but pseudoseizures. Give low- dose lorazepam IV prn for breakthrough seizure-like activity. 10. CAD; s/p STEMI - Noted. 11. History of cardiac arrest with ventricular fibrillation - Noted. 12. History of chronic anemia - Stable with hemoglobin 11.1 g/dL and MCV of 88 fL present on admission. 13. Neuropathy; on gabapentin nightly - Current therapy to continue as before. 14. History of depression with anxiety; on buspirone, sertraline and lorazepam BID prn - Maintain home regimen as previous. 15. History of alcohol abuse (sober since 2020) - Noted. 16. History of cannabis abuse - Noted. 17. Former tobacco abuse - Noted. 18. History of hyponatremia - Stable with serum sodium of 138 mmol/L present on admission. 19. History of acute 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 with appendiceal abscess (08/2023) - Noted. 20. History of ureteral stent - Noted. 21. OA; s/p total shoulder replacement with chronic pain; on hydromorphone q. 4 hours prn - We will follow pain regimen and scales outlined in #1. 22. Muscle spasms; on methocarbamol TID - Continue present treatment. 23. DVT/GI prophylaxis - Enoxaparin 30 mg sq daily plus SCD's. Pantoprazole 40 mg IV daily. Total time: Approximately (but not less than) 75 minutes. Charges/Coding Visit Charges Inpatient E&M: 68545 Init Hosp L3
[2025-01-19] MEDS: 0.9% Normal Saline (1000mL) 1,000 ML 1000 ML IV (05:47)
[2025-01-19 06:00] LABS: Allen Test Positive; Base Excess 6 mmol/L (-2 to +2); PO2 59 mmHG (75-100); SITE L Radial; SO2 90 % (94-98)
[2025-01-19 06:17] LABS: Mucous, Urine 0 SEEN /hpf (<or=2+)
[2025-01-19] MEDS: Potassium Chloride Oral Soln 20 MEQ/15 ML UDC 40 MEQ PO (06:17)
[2025-01-19 06:23] LABS: BETA-HYDROXYBUTYRATE 2.4 mmol/L (0.0-0.3)
[2025-01-19] MEDS: Lidocaine 2% Viscous15 ML UDC 5 ML PO (06:26)
[2025-01-19 06:34] LABS: Color, Urine Yellow (Yellow); Glucose, Dipstick Normal (Normal); Ketone-Dipstick 50 mg/dl (Negative); Leukocyte Esterase-Dipstick 25 /ul (Negative); Nitrite-Dipstick Negative (Negative); Occult Blood-Urine 10 /ul (Negative); Protein-Dipstick 30 mg/dl (Negative); Specific Gravity, Urine 1.010 (1.002-1.030); Urine Bilirubin Dipstick Negative (Negative)
[2025-01-19 06:38] LABS: Prothrombin Time (Protime)PT. 15.3 SECONDS (11.7-14.9)
[2025-01-19 06:39] LABS: Partial Thromboplast Time 31.7 Seconds (24.1-36.2)
[2025-01-19 06:40] LABS: Red Blood Cells-Urine 0-5 SEEN /hpf (0-5); Squamous Epithelial Cells - UA 0-5 SEEN /hpf (5-10)
[2025-01-19] MEDS: levoFLOXacin IV 750 MG/150 ML BAG 100 MG IV (06:56)
--- OUTSIDE RECORDS SUMMARY | 2025-01-19 07:05 | XMS RPT_ITS | CCD ---
Author Organization [facility] ion Partnership [facility] Care Team Providers Care Fuel Testing Technician Name Role Phone Pushpa Barnhart Unavailable Unavailable Pushpa Barnhart Unavailable Unavailable Mary Moss Primary Care Provider Adrian Wallace DO Unavailable Mary Moss Primary Care Provider Adrian Wallace DO Unavailable Unavailable Primary Care Provider Unavailsushila e PROVIDER, UNKNOWN Attending Unavailable PROVIDER, UNKNOWN Admitting Unavailable PROVIDER, UNKNOWN Attending Unavailable PROVIDER, UNKNOWN Admitting Unavailable Mary Moss Primary Care Provider Mary Moss Primary Care Provider TESSA SPRING Referring Unavailable MARY MOSS Primary Care Unavailable LISBETH ALFODR Referring UnavailMARY Morales Primary Care Unavailable Mary Moss CNP Primary Care Provider Benson ANDRES, Ion Unavailable Christie Sánchez NP Unavailable Joe Williamson RN Unavailable Saw ANDRES, Tessa Monae Unavailable Amber Deshpande Unavailable UnavailJimmie Bailey MD Unavailable Kate Castillo RN Unavailable Gonzalo HERNANDEZ, Christie Primary Care Provider Adrian Wallace DO Unavailable Mary Moss CNP Primary Care Provider Gonzalo FABRICATION OPERATOR-C, Christie Primary Care Provider Ankit Marsh MD Attending Provider Salma ANDRES, Ankit Emergency Provider Beam FABRICATION OPERATOR-C, Zebuluchico Primary Care Provider Stepan BATISTA, Dr. Humphrey Referring Provider Stepan BATISTA, Dr. Humphrey Emergency Provider Gonzalo FABRICATION OPERATOR, Christie Primary Care Provider Saw ANDRES, Tessa Monae Unavailable Zulema ANDRES, Jimmie Unavailable Kevin MANN, Shelby Unavailable Stepan BATISTA, Dr. Humphrey Attending Provider Luis ANDRES, Dr. Qamar Diaz Admit Provider Luis ANDRES, Dr. Qamar Diaz Attending Provider Tobin ANDRES, Dr. Tony Other Provider Luis ANDRES, Dr. Qamar Diaz Referring Provider [facility] Unavailable PROVIDER, UNKNOWN Attending Unavailable PROVIDER, UNKNOWN Admitting Unavailable Beam FABRICATION OPERATOR-C, Zebulun Attending Provider Beam FABRICATION OPERATOR-C, Zebulun Referring Provider Salma ANDRES, Ankit Emergency Provider Adrian Wallace DO Unavailable [phone] Gonzalo FABRICATION OPERATOR, Christie Unavailable Teri RN, Joe Unavailable Kevin MANN, Shelby Unavailable Ankit Marsh MD Attending Provider Edwar ANDRES, Dr. Teixeira Emergency Provider Unavailab evy Mendez MD, Dr. Bryant Admit Provider Andrea ANDRES, Dr. Bryant Attending Provider Andrea ANDRES, Dr. Bryant Other Provider Edd BATISTA, Dr. Kyle Attending Provider Beam FABRICATION OPERATOR-C, Zebulun Primary Care Provider Edd BATISTA, Dr. Kyle Other Provider Evy BATISTA, Dr. Vale Emergency Provider Magdalena ANDRES, Dr. Reich Other Provider Magdalena ANDRES, Dr. Reich Attending Provider Abrahan ANDRES, Dr. Tracy Emergency Provider NAFFOUJE, SAMER A Attending Unavailable NAFFOUJE, SAMER A Admitting Unavailable SWIWALET, MARY ELMIRA Primary Care Unavailable NAFFOUJE, SAMER A Attending Unavailable NAFFOUJE, SAMER A Admitting Unavailable GONZALO, CHRISTIE Primary Care Unavailable OSORIOARENPAOLA K Attending Unavailable OSORIO, PAOLA K Admitting Unavailable GONZALO, CHRISTIE Primary Care Unavailable RADHA RODRIGUEZ Attending Unavailable RADHA RODRIGUEZ Admitting Unavailable GONZALO, CHRISTIE Primary Care Unavailable KANAA'N, [place] Admitting Unavailable EVY, KAVIN Referring Unavailable GONZALO, CHRISTIE Primary Care Unavailable NTATIN, AMUSA Attending Unavailable BONITA MCCRAY Consulting Unavailable Beam FABRICATION OPERATOR-C, Zebulun Primary Care Physician Luis ANDRES, Dr. Qamar Diaz Admitting Physician Luis ANDRES, Dr. Qamar Diaz Attending Physician Tobin ANDRES, Dr. Tony Nurse Practitioner Luis ANDRES, Dr. Qamar Diaz Referring Provider Beam FABRICATION OPERATOR-C, Zebulun Attending Physician Beam FABRICATION OPERATOR-C, Zebulun Referring Provider Salma ANDRES, Ankit Attending Physician Salma ANDRES, Ankit Emergency Department Physician Edwar ANDRES, Dr. Teixeira Emergency Department Physici an Unavailable Andrea ANDRES, Dr. Bryant Admitting Physician Andrea ANDRES, Dr. Bryant Nurse Practitioner Edd BATISTA, Dr. Kyle Attending Physician Edd BATISTA, Dr. Kyle Nurse Practitioner Evy BATISTA, Dr. Vale Attending Physician [phone] Evy BATISTA, Dr. Vale Emergency Department Physician Magdalena ANDRES, Dr. Reich Nurse Practitioner [phone] Magdalena ANDRES, Dr. Reich Attending Physician Abrahan ANDRES, Dr. Tracy Attending Physician [phone] Abrahan ANDRES, Dr. Tracy Emergency Department Physici an [facility] , Dr. Turner Attending Physician [facility], Dr. Turner Emergency Departmen t Physician Saroj Puga Attending Unavailable Beam VSC, Zebulun Primary Care Unavailable Mendez, Annette Admitting Unavailable Mendez, Annette Consulting Unavailable Beam VSC, Zebulun Primary Care Unavailable Luis, Qamar Chi Attending Unavailable Luis, Qamar Chi Referring Unavailable Beam VSC, Zebulun Primary Care Unavailable Beam VSC, Zebulun Attending Unavailable Beam VSC, Zebulun Referring Unavailable Kavin Adams Attending Unavailable Beam VSC, Zebulun Primary Care Unavailable Belomayra, Rachana Consulting Unavailable Beam VSC, Zebulun Primary Care Unavailable Daiana Mendezge Attending Unavailable Saroj Puga Attending Unavailable Mendez, Annette Admitting Unavailable Mendez, Annette Consulting Unavailable Saroj Puga Consulting Unavailable Beam VSC, Zebulun Primary Care Unavailable Rachana Nichols Consulting Unavailable Rachana Nichols Attending Unavailable Beam VSC, Zebulun Primary Care Unavailable Ankit Marsh Attending Unavailable Demarcus Gauthier Attending Unavailable Beam VSC, Zebulun Primary Care Unavailable Ungur, Remus Attending Unavailable Ungur, Remus Referring Unavailable Beam VSC, Zebulun Primary Care Unavailable Beam VSC, Zebulun Primary Care Unavailable Robotpamela Cecily Consulting Unavailable Luis, Qamar Chi Admitting Unavailable Luis, Qamar Chi Attending Unavailable Gonzalo VSC, Christie Primary Care Unavailabl e Gonzalo VSC, Christie Attending Unavailabl e Gonzalo VSC, Christie Primary Care Unavailabl e ReodicAnkit monae Attending Unavailable Beam VSC, Zebulun Primary Care Unavailable Johnny Colunga Attending Unavailabl e JIMMIE POOLE Referring Unavailable JIMMIE POOLE Attending Unavailable GONZALO, CHRISTIE Primary Care Unavailable GONZALO, CHRISTIE Primary Care Unavailable GONZALO, CHRISTIE Primary Care Unavailable JIMMIE POOLE Referring Unavailable GONZALO, CHRISTIE Primary Care Unavailable ADRIENNE BAHENA Attending Unavailable ADRIENNE BAHENA Attending Unavailable SWIHART, MARY ELMIRA Primary Care Unavailable NAFFOUJE, SAMER A Referring Unavailable NAFFOUJE, SAMER A Attending Unavailable SWIHART, MARY ELMIRA Primary Care Unavailable SWIHART, MARY ELMIRA Primary Care Unavailable SWIHART, MARY ELMIRA Primary Care Unavailable NAFFOUJE, SAMER A Referring Unavailable GONZALO, CHRISTIE Primary Care Unavailable JIMMIE POOLE Referring Unavailable SWIHART, MARY ELMIRA Primary Care Unavailable NAFFOUJE, SAMER A Attending Unavailable GONZALO, CHRISTIE Primary Care Unavailable JIMMIE POOLE Referring Unavailable GONZALO, CHRISTIE Primary Care Unavailable JIMMIE POOLE Referring Unavailable GONZALO, HCRISTIE Primary Care Unavailable NAFFOUJE, SAMER A Attending Unavailable SWIHART, MARY ELMIRA Primary Care Unavailable JIMMIE POOLE Attending Unavailable GONZALO, CHRISTIE Primary Care Unavailable JIMMIE POOLE Attending Unavailable GONZALO, CHRISTIE Primary Care Unavailable JIMMIE POOLE Referring Unavailable GONZALO, CHRISTIE Primary Care Unavailable JIMMIE POOLE Referring Unavailable GONZALO, CHRISTIE Primary Care Unavailable GONZALO, CHRISTIE Primary Care Unavailable NAFFOUJE, SAMER A Referring Unavailable GONZALO, CHRISTIE Primary Care Unavailable JIMMIE POOLE Attending Unavailable GONZALO, CHRISTIE Primary Care Unavailable NAFFOUJE, SAMER A Referring Unavailable GONZALO, CHRISTIE Primary Care Unavailable JAG LENZ Attending Unavailable ADRIENNE BAHENA Referring Unavailable JIMMIE POOLE Referring Unavailable GONZALO, CHRISTIE Primary Care Unavailable GONZALO, CHRISTIE Primary Care Unavailable FE EDMOND Referring Unavailable NAFFOUJE, SAMER A Referring Unavailable SWIHART, MARY ELMIRA Primary Care Unavailable JIMMIE POOLE Referring Unavailable GONZALO, CHRISTIE Primary Care Unavailable GONZALO, CHRISTIE Primary Care Unavailable GONZALO, CHRISTIE Primary Care Unavailable EDWARDO VALENCIA Attending STEWART Pearson Referring Unavailable NAFFOUJE, SAMER A Attending Unavailable SWIHART, MARY ELMIRA Primary Care Unavailable GONZALO, CHRISTIE Primary Care Unavailable YUMIKO ALARCON Referring Unavailable GONZALO, CHRISTIE Primary Care Unavailable JIMIME POOLE Referring Unavailable JIMMIE POOLE Attending Unavailable GONZALO, CHRISTIE Primary Care Unavailable NAFFOAriannaJE, SAMER A Attending Unavailable GONZALO, CHRISTIE Primary Care Unavailable FE EDMOND Attending Unavailable FE EDMOND Referring Unavailable GONZALO, CHRISTIE Primary Care Unavailable GONZALO, CHRISTIE Referring Unavailable EDWARDO VALENCIA Attending Jessika nicole GONZALO, CHRISTIE Primary Care Unavailable JIMMIE POOLE Referring Unavailable JIMMIE POOLE Attending Unavailable GONZALO, CHRISTIE Primary Care Unavailable JIMMIE POOLE Referring Unavailable GONZALO, CHRISTIE Primary Care Unavailable ADRIENNE BAHENA Attending Unavailable JIMMIE POOLE Referring Unavailable GONZALO, CHRISTIE Primary Care Unavailable NAFFOUJE, SAMER A Attending Unavailable GONZALO, CHRISTIE Primary Care Unavailable JIMMIE POOLE Referring Unavailable GONZALO, CHRISTIE Primary Care Unavailable GONZALO, CHRISTIE Primary Care Unavailable GONZALO, CHRISTIE Primary Care Unavailable ADRIENNE BAHENA Attending Unavailable GONZALO, CHRISTIE Primary Care Unavailable JIMMIE POOLE Referring Unavailable JIMMIE POOLE Referring Unavailable GONZALO, CHRISTIE Primary Care Unavailable GONZALO, CHRISTIE Primary Care Unavailable NAFFOUJE, SAMER A Referring Unavailable GONZALO, CHRISTIE Primary Care Unavailable PAYTONFOKAMILLA, SAMER A Attending Unavailable NAFFOUCHRIS, SAMER A Referring Unavailable SWIHART, MARY ELMIRA Primary Care Unavailable JIMMIE POOLE Referring Unavailable SWIHART, MARY ELMIRA Primary Care Unavailable JIMMIE POOLE Attending Unavailable NAFFOUJE, SAMER A Referring Unavailable SWIHART, MARY ELMIRA Primary Care Unavailable AMISH XAVIER Referring Unavailable FE EDMOND Attending Unavailable SWIHART, MARY ELMIRA Primary Care Unavailable GONZALO, CHRISTIE Primary Care Unavailable GONZALO, CHRISTIE Primary Care Unavailable NAFFOAriannaJE, SAMER A Attending Unavailable JIMMIE POOLE Attending Unavailable GONZALO, CHRISTIE Primary Care Unavailable JIMMIE POOLE Referring Unavailable GONZALOCARLOCHRISTIE Primary Care Unavailable JIMMIE POOLE Referring Unavailable CARLO SÁNCHEZICA Primary Care Unavailable JIMMIE POOLE Referring Unavailable GONZALO, CHRISTIE Primary Care Unavailable KRISTI BARROSO Attending Unavailable JIMMIE POOLE Referring Unavailable CARLO SÁNCHEZICA Primary Care Unavailable JIMMIE POOLE Referring Unavailable JIMMIE POOLE Attending Unavailable GONZALOCARLOCHRISTIE Primary Care Unavailable JIMMIE POOLE Referring Unavailable GONZALOCARLOCHRISTIE Primary Care Unavailable JIMMIE POOLE Referring Unavailable JIMMIE POOLE Attending Unavailable GONZALOCARLOCHRISTIE Primary Care Unavailable [facility] Primary Care Unavailable JAG LENZ Attending Unavailable [facility] Primary Care Unavailable Allergies Allergy Classification Reported Allergen(s) Allergy Type Date of Onset Reaction(s) Facility Macrolides (antibiotic) (4 sources) Azithromycin Drug Allergy 7 Unknown [facility] Work Phone: (2 sources) erythromycin drug allergy 7 [facility] Work Phone: (20 sources) Azithromycin; Translations: [AZITHROMYCIN] Drug Allergy 9 Unknown [facility] Work Phone: (20 sources) Erythromycin; Translations: [ERYTHROMYCIN] Drug Allergy 7 Unknown, Other, Intolerance [facility] (1 source) erythromycin base Drug allergy (disorder) 5 [facility] Repository Medications Current Medications Medication Drug Class(es) Dates Sig (Normalized) Sig (Original) alendronic acid 70 mg oral tablet (20 sources) Bisphosphonate Start: 10-16-2023 End: 12-03-2024 amoxicillin 500 mg oral capsule (16 sources) Penicillin-class Antibacterial Start: 06-14-2024 End: 08-05-2024 take 1 capsule by mouth three times daily amoxicillin (AMOXIL) 500 mg capsule Take 500 mg by mouth three times a day. 06/14/2024 08/05/2024 Discontinued busPIRone hydrochloride 7.5 mg oral tablet (20 sources) Start: 10-18-2023 Start: 10-16-2023 take 1 tablet by miguel once daily Buspirone 7.5 mg tablet Active 7.5 mg PO DAILY October 18, 2023 12:00am Mood Start: 10-10-2019 End: 08-24-2023 Start: 12-21-2016 End: 08-01-2023 Buspirone Active 7.5 [...] 3 tablet 0 01/16/2023 08/04/2023 Discontinued Start: 10-10-2019 End: 09-12-2024 Start: 02-01-2019 End: 09-12-2024 Clonazepam 0.25 MG [...] ml enoxaparin sodium 100 mg/ml prefilled syringe (20 sources) Low Molecular Weight Heparin Start: 09-06-19 End: 10-04-19 inject 30 mg by subcutaneous injection every twenty-four hours enoxaparin (LOVENOX) 30 mg/0.3 mL injection Inject 0.3 mL subcutaneously every 24 hours for 28 days. 8.4 mL 09/05/2024 10/03/2024 Active Start: 09-04-2024 End: 09-12-2024 Start: 09-04-2024 End: 09-12-2024 Enoxaparin 30 mg/0.3 mL syri nge Discontinued 30 mg SC Q24H September 04, 2024 12:00am September 12, 2024 8:37pm DVT Prophylaxis enteric contrast (will be provided with radiology test) (5 sources) Start: 11-29-2024 End: 11-30-2024 enteric contrast (will be provided with radiology test) For CT CHESTABD/PEL W IVCON Routine order Administer, As Directed One Time Only, via Oral, Rectal, both Oral and Rectal, Enteric Tube, Stoma or Indwelling Catheter, Enteric Contrast as designated per enteric contrast guidelines 1 each 11/29/2024 11/30/2024 Active Start: 03-07-2024 End: 03-08-2024 enteric contrast (will be pr ovided with radiology test) For CT ABD/PEL W [...] guidelines. 1 Each 0 10/11/2023 10/12/2023 Active HYDROmorphone hydrochloride 2 mg oral tablet (20 sources) Opioid Agonist Start: 11-29-2024 End: 12-14-2024 take 1 tablet by mouth twice daily as needed for pain HYDROmorphone 2 mg tablet Indications: Adenocarcinoma of cecum (HCC) , Malignant neoplasm of ascending colon (HCC) Take 1 tablet by mouth two times a day as needed for pain for up to 15 days. 30 tablet 11/29/2024 12/03/2024 Discontinued Start: 11-11-2024 End: 11-18-2024 take 1 tablet [...] days. 14 tablet 10/24/2024 10/31/2024 Active Start: 09-12-2024 End: 12-18-2024 take 1 tablet by mouth every six hours as needed for pain HYDROmorphone 2 mg tablet Indications: Adenocarcinoma of cecum (HCC) , Palliative care by specialist , Cancer related pain Take 1 tablet by mouth every 6 hours as needed for pain for up to 15 days. 60 tablet 12/03/2024 12/18/2024 Active Start: 09-04-2024 End: 09-12-2024 Start: 09-04-2024 End: 10-04-2024 take 2-4 mg [...] 08/21/2024 1:38 PM EDT 08/21/2024 08/28/2024 Active hydrOXYzine pamoate 25 mg oral capsule (10 sources) Antihistamine Start: 09-12-2024 iv contrast (will be provided with radiology test) (11 sources) Start: 11-29-2024 End: 11-30-2024 iv contrast (will be provided with radiology test) CT Chest ABD/PEL-Inject, intravenously, once for 1 dose.No IV access, [...] CT contrast administration guidelines link. 1 each 11/29/2024 11/30/2024 Active Start: 08-05-2024 iv contrast (w ill be [...] link. 1 Each 0 10/11/2023 10/12/2023 Active lidocaine 25 mg/ml / prilocaine 25 mg/ml topical cream (20 sources) Antiarrhythmic, Amide Local Anesthetic Start: 09-25-2024 End: 10-24-2025 lidocaine-prilocaine (EMLA) 2.5-2.5 % cream Indications: Adenocarcinoma of cecum (HCC) Apply to port 60 minutes before accessing 15 g 3 09/25/2024 10/24/2025 Active LORazepam 0.5 mg oral tablet (7 sources) Benzodiazepine Start: 11-25-2024 End: 12-03-2024 metoprolol tartrate 25 mg oral tablet (15 sources) beta-Adrenergic Edilson Start: 11-26-2024 take 0.5 tablet by mouth twice daily metoprolol tartrate, short acting, (LOPRESSOR) 25 mg tablet Take 0.5 tablets by mouth two times a day. 45 tablet 2 11/26/2024 Active naloxone 4 mg/actuation nasal spray (NARCAN) (6 sources) Start: 08-05-2024 naloxone 4 mg/actuation nasal spray (NARCAN) Use [...] assistance is available 1 each 08/05/2024 Active OLANZapine 10 mg oral tablet (20 sources) Atypical Antipsychotic Start: 09-20-2024 End: 03-03-2025 take 1 tablet by mouth once daily at bedtime OLANZapine (ZYPREXA) 10 mg tablet Indications: Adenocarcinoma of cecum (HCC) , Weight loss , Anorexia , CINV (chemotherapy-induced nausea and vomiting) , Palliative care by specialist Take 1 tablet by mouth daily at bedtime. 30 tablet 2 12/03/2024 03/03/2025 Active prochlorperazine 10 mg oral tablet (20 sources) Phenothiazine Start: 11-06-2024 take 1 tablet by mouth every six hours as needed prochlorperazine (COMPAZINE) 10 mg tablet Take 1 tablet by mouth every 6 hours as needed for nausea/vomiting. 30 tablet 2 11/06/2024 Active Start: 09-25-2024 End: 10-24-2024 take 1 tablet by mouth every six hours as needed for nausea prochlorperazine (COMPAZINE) 10 mg tablet Indications: Adenocarcinoma of cecum (HCC) Take 1 tablet by mouth every 6 hours as needed for nausea/vomiting. 30 tablet 2 09/25/2024 10/24/2024 Discontinued sertraline 50 mg oral tablet (20 sources) Serotonin Reuptake Inhibitor Start: 10-16-2023 End: 11-29-2024 vancomycin 125 mg oral capsule (17 sources) Glycopeptide Antibacterial Start: 11-27-2024 End: 12-07-2024 take 1 capsule by mouth four times daily vancomycin (VANCOCIN) 125 mg capsule Take 1 capsule by mouth four times daily for 10 days. 40 capsule 11/27/2024 12/07/2024 Active Start: 11-08-2024 End: 11-20-2024 Completed/Discontinued Medications Medication Drug Class(es) Dates Sig (Normalized) Sig (Original) acetaminophen 500 mg oral tablet (20 sources) Start: 09-12-2024 End: 11-08-2024 Start: 01-08-2024 take 500-1000 mg by mouth every six hours as needed acetaminophen (TYLENOL EXTRA STRENGTH) 500 mg tablet Take 1-2 tablets by mouth every 6 hours as needed for pain. 01/08/2024 Suspended Start: 10-18-2023 End: 09-12-2024 Start: 10-18-2023 take 2 capsules by m outh at bedtime Acetaminophen 500 mg capsule Active 1000 mg PO AT BEDTIME October 18, 2023 12:00am Start: 10-25-2019 End: 11-07-2019 Start: 10-25-2019 End: 11-07-2019 take 500-1000 mg by mouth every six hours as needed for pain Acetaminophen 500 MG tablet Discontinued 500 - 1000 mg PO EVERY 6 HOURS NEEDED as needed for Pain Or Fever October 25, 2019 12:00am November 07, 2019 8:27am acetaminophen 325 mg / oxyCO DONE hydrochloride 5 mg oral tablet (15 sources) Opioid Agonist Start: 10-10-2019 End: 10-15-2019 Start: 10-10-2019 End: 10-15-2019 Oxycodone-Acetaminophen 1 TA BLET tablet Discontinued 1 {tbl} PO EVERY 6 [...] 14, 2019 11:02pm amoxicillin 875 mg / clavula juan jose 125 mg oral tablet (20 sources) Penicillin-class Antibacterial Start: 12-13-2023 End: 09-12-2024 Start: 12-13-2023 End: 09-12-2024 Amoxicillin-Pot Clavulanate 875-125 mg tablet Discontinued 1 {tbl} PO TWICE A DAY 26 0 December 13, 2023 12:00am September 12, 2024 8:37pm Start: 11-08-2023 End: 11-23-2023 Start: 11-08-2023 End: 11-23-2023 Amoxicillin-Pot Clavulanate 875-125 [...] 09/27/2023 04/11/2024 Discontinued Start: 09-05-2023 End: 10-27-2023 Start: 09-05-2023 End: 10-27-2023 Amoxicillin-Pot Clavulanate 875-125 mg tablet Discontinued 1 {tbl} PO Q12H 38 19 0 October 18, 2023 12:00am October 27, 2023 1:33pm Start: 08-16-2022 End: 08-24-2023 Start: 08-16-2022 End: 08-24-2023 Amoxicillin-Pot Clavulanate 875-125 mg tablet Discontinued 1 {tbl} PO TWICE A DAY 14 August 16, 2022 12:00am August 24, 2023 11:40am Start: 08-16-2022 take 1 tablet by miguel th twice daily Amoxicillin-Pot Clavulanate Active 1 TABLET PO TWICE A DAY August 15, 2022 11:00pm ascorbic acid 500 mg chewabl e tablet (20 sources) Vitamin C Start: 07-23-2020 End: 08-24-2023 End: 08-01-2023 take 1 tablet by mouth once daily ascorbic acid, vitamin C, (VITAMIN C) 500 mg tablet Take 500 mg by mouth once daily. 0 08/01/2023 Discontinued (Discontinued by Patient) Comment on above: Take 500 mg by mouth once daily. calcium polycarbophil 625 mg oral tablet (11 sources) Start: 10-18-2023 End: 09-12-2024 capecitabine 500 mg oral tablet (20 sources) Nucleoside Metabolic Inhibitor Start: 06-24-2024 End: 09-25-2024 capecitabine (XELODA) 500 mg tablet Take 2 [...] 05/02/2024 06/20/2024 Discontinued ciprofloxacin 500 mg oral ta blet (20 sources) Quinolone Antimicrobial Start: 11-23-2023 End: 12-07-2023 Start: 09-27-2023 End: 01-18-2024 ciprofloxacin HCl (CIPRO) 50 0 mg tablet 1 tablet by ORAL/FEEDING TUBE route every 12 hours at 6 am and 6 pm. 09/27/2023 01/18/2024 Discontinued (Discontinued by Patient) Start: 09-05-2023 End: 10-24-2023 1 ml dexamethasone phosphate 10 mg/ml injection (4 sources) Corticosteroid Start: 12-02-2024 End: 12-02-2024 10 mg, INTRAVENOUS, ONCE, 1 dose, On Mon12/02/24 at 1000, Administer IV doses up to 10 mg over 5 minutes. Administer doses > 10 mg over 15 to 30 minutes. Start: 11-19-2024 End: 11-19-2024 10 mg, INTRAVENOUS, ONCE, 1 dose, On Tu11/19/24 at 1000, Administer IV doses up to 10 mg over 5 minutes. Administer doses > 10 mg over 15 to 30 minutes. Start: 11-07-2024 End: 11-07-2024 8 mg, INTRAVENOUS, ONCE, 1 d ose, On Erin 11/07/24 at 0930, Administer IV doses up to 10 mg over 5 minutes. Administer doses > 10 mg over 15 to 30 minutes. Start: 11-06-2024 End: 11-06-2024 10 mg, INTRAVENOUS, ONCE, 1 dose, On Mon11/06/24 at 1000, Administer IV doses up to 10 mg over 5 minutes. Administer doses > 10 mg over 15 to 30 minutes. diazePAM 5 mg oral tablet (20 sources) Benzodiazepine Start: 11-13-2024 End: 12-06-2024 take 1 tablet by mouth every twelve hours as needed for anxiety diazePAM (VALIUM) 5 mg tablet Indications: Adenocarcinoma of cecum (HCC) Take 1 tablet by mouth every 12 hours as needed for anxiety for up to 10 days. 20 tablet 11/26/2024 12/03/2024 Discontinued docusate sodium 100 mg oral capsule (15 sources) Start: 10-10-2019 End: 10-25-2019 docusate sodium 50 mg / sennosides, mcc 8.6 mg oral tablet (20 sources) Start: 09-04-2024 End: 09-12-2024 Start: 08-21-2024 End: 10-24-2024 Sennosides-Docusate Sodium ( Senna Plus) 8.6-50 mg tablet Discontinued 1 NMA [...] tablet (20 sources) Start: 07-23-2020 End: 08-24-2023 Comment on above: Take 325 mg by mouth daily with breakfast. fexofenadine (2 sources) Histamine-1 Receptor Antagonist Start: 12-21-2016 KORIN ALLERGY 180 MG TABS FEXOFENADINE HCL [id number] Cecily Rudd MD Start: 12-21-2016 KORIN ALLERG Y 180 MG TABS FEXOFENADINE HCL [id number] Cecily Rudd MD fluconazole 200 mg oral tablet (20 sources) Azole Antifungal Start: 10-18-2023 End: 09-12-2024 fluorouracil 50 mg/ml injectable solution (2 sources) [...] Serotonin Reuptake Inhibitor Start: 07-23-2020 End: 08-24-2023 Comment on above: Take 20 mg by mouth once daily. Food Supplement, Lactose-Free (ENSURE ACTIVE HIGH PROTEIN) liqd (20 sources) Start: 09-27-2023 End: 07-15-2024 take 237 mL by mouth three times daily at mealtime Food Supplement, Lactose-Free (ENSURE ACTIVE HIGH PROTEIN) liqd Take 237 mL by mouth three times a day with meals. [id number] mL 09/27/2023 07/15/2024 Discontinued Start: 09-27-2023 take 237 mL by mouth three times daily at mealtime Food Supplement, Lactose-Free (ENSURE ACTIVE HIGH PROTEIN) liqd Take 237 mL by mouth three times a day with meals. 05443 mL 09/27/2023 Active Start: 09-27-2023 take 237 mL by mouth three times daily at mealtime Food Supplement, Lactose-Free (ENSURE ACTIVE HIGH PROTEIN) liqd Take 237 mL by mouth three times a day with meals. 89993 mL 0 09/27/2023 Active Start: 09-27-2023 End: 10-27-2023 take 237 mL by mouth three times daily at mealtime Food Supplement, Lactose-Free (ENSURE ACTIVE HIGH PROTEIN) liqd Take 237 mL by mouth three times a day with meals. 64553 mL 0 09/27/2023 10/27/2023 Active Food Supplement, [...] a day. 2 times daily between meals 40483 mL 09/27/2023 07/15/2024 Discontinued Start: 09-27-2023 Food Supplemen t, Lactose-Free (ENSURE HIGH PROTEIN) liqd Take 237 mL by mouth two times a day. 2 times daily between meals 05709 mL 09/27/2023 Active Start: 09-27-2023 Food Supplemen t, Lactose-Free (ENSURE HIGH PROTEIN) liqd Take 237 mL by mouth two times a day. 2 times daily between meals 74545 mL 0 09/27/2023 Active Start: 09-27-2023 End: 10-27-2023 Food Supplement, Lactose-Reji e (ENSURE HIGH PROTEIN) liqd Take 237 mL by mouth two times a day. 2 times daily between meals 26126 mL 0 09/27/2023 10/27/2023 Active Food Supplement, [...] for 90 days. 30 capsule 2 10/24/2024 12/03/2024 Discontinued Start: 07-31-2024 End: 09-20-2024 lacosamide 100 mg oral tablet (20 sources) Anti-epileptic Agent Start: 08-25-2023 End: 09-12-2024 Leucovorin (2 sources) Folate Analog Start: 11-19-2024 [...] Amide Local Anesthetic Start: 09-12-2024 End: 11-20-2024 Start: 09-04-2024 lidocaine (HAM ONPAS) 4 % patch Apply 2 patches to affected area as directed once daily. Keep patches on for 12 hour and remove patches after 12 hours. 60 patch 09/04/2024 Active Start: 09-04-2024 End: 09-12-2024 magnesium oxide 500 mg oral capsule (20 sources) Start: 06-11-2018 End: 08-24-2023 Start: 06-11-2018 take 250 mg by mouth [...] 250 mg by mouth three times daily. 100 ml magnesium sulfate 40 mg/ml injection (1 source) Start: 12-03-19 End: 12-03-19 take 2 g intravenously every hour 4 g, INTRAVENOUS, at 25-50 mL/hr, Administer over 2-4 Hours, ONCE, 1 dose, On Mon12/02/24 at 0900, Magnesium 1.4 to 1.6 infuse 4gm Magnesium Sulfate IV over 2 hours. Magnesium sulfate iv bolus will be infused at a rate of 1 gram/hr The following nursing units may administer 2 g dose over 1 hour if necessary: ICUs/PACU/ED, Adult Hematology/Oncology, Labor and Delivery, Cardiac Stepdown, Headache Clinic If necessary, a magnesium sulfate bolus may be administered greater than 2 g/hr for the following indications: Adult and Pediatric Asthma Exacerbations, [place] Point[place], Pediatric BMT and Hematology/Oncology, Eclampsia or Preeclampsia methocarbamol 500 mg oral tablet (20 sources) Muscle Relaxant Start: 10-25-19 End: 11-22-19 take 1 tablet by mouth every twelve [...] 28 tablet 09/16/2024 09/30/2024 Active Start: 09-12-2024 Start: 09-04-2024 End: 10-04-2024 take 1 tablet by mouth three times daily methocarbamol (ROBAXIN) 750 mg tablet Take 1 tablet by mouth three times a day. 90 tablet 09/04/2024 10/04/2024 Active Start: 09-04-2024 End: 09-12-2024 Start: 09-04-2024 End: 09-12-2024 Methocarbamol 500 mg [...] 08/05/2024 Discontinued metroNIDAZOLE 500 mg oral tablet (11 sources) Nitroimidazole Antimicrobial Start: 11-23-2023 End: 12-07-2023 MULTIPLE VITAMINS-MINERALS (1 source) Start: 12-21-2016 DAILY MULTIVIT RAMIREZ CAPS MULTIPLE VITAMINS-MINERALS [id number] Cecily Rudd MD MULTIPLE VITAMINS-MINERALS (1 source) Start: 12-21-2016 DAILY MULTIVIT RAMIREZ CAPS MULTIPLE VITAMINS-MINERALS [phone] Cecily Rudd MD naloxone hydrochloride 40 mg/ml nasal spray (14 sources) Opioid Antagonist Start: 09-20-2024 End: 10-24-2024 naloxone 4 mg/actuation nasal spray (NARCAN) Use 1 spray in one nostril as needed for overdose. May repeat every 2 to 3 min in alternating nostrils until medical assistance is available 1 each 09/20/2024 10/24/2024 Discontinued 2 ml ondansetron 2 mg/ml injection (20 sources) Serotonin-3 Receptor Antagonist Start: 11-07-2024 End: 11-07-2024 8 mg, INTRAVENOUS, ONCE, 1 dose, On Erin 11/07/24 at 0930 Start: 04-08-2024 End: 09-12-2024 Start: 04-08-2024 End: 09-12-2024 take 1 tablet by mouth every six hours as needed for nausea and vomiting Ondansetron 4 mg tablet,disintegrating Discontinued 4 mg PO EVERY 6 HOURS as needed for nausea and vomiting 15 0 April 08, 2024 1:00am September 12, 2024 [...] days. 21 tablet 01/10/2024 01/17/2024 Active oxaliplatin (3 sources) [facility] Start: 12-02-2024 End: 12-02-2024 80.4 mg (60 mg/m2 1.34 m2 Treatment Plan BSA from Recorded weight), INTRAVENOUS, Administer over 2 Hours, ONCE, 1 dose, On Mon12/02/24 at 1030, exp 1600 12/03/24 (room temp) Hazardous Chemotherapy Drug: Use appropriate PPE. Antineoplastic Irritant with Vesicant Potential. Flush line with D5W before and after administration. Start: 11-19-2024 End: 11-19-2024 113.9 mg (85 mg/m2 1.34 m2 T [...] 12/28/2023 01/04/2024 Active Start: 10-25-2019 End: 11-07-2019 Start: 10-25-2019 End: 11-07-2019 Oxycodone 5 MG tablet Discon tinued 1 - 2 {tbl} PO EVERY 6 HOURS NEEDED as needed for Pain Or Fever October 25, 2019 12:00am November 07, 2019 8:27am 5 ml palonosetron 0.05 mg/ml injection (3 sources) Serotonin-3 Receptor Antagonist Start: 12-02-2024 End: 12-02-2024 0.25 mg, INTRAVENOUS, ONCE, 1 dose, On Mon12/02/24 at 1000, Flush IV line with NS prior to and following administration. Start: 11-19-2024 End: 11-19-2024 0.25 mg, INTRAVENOUS, [...] Proton Pump Inhibitor Start: 09-27-2023 End: 09-12-2024 polyethylene glycol 3350 51324 mg powder for oral solution (20 sources) Osmotic Laxative Start: 08-21-2024 End: 10-24-2024 microencapsulated potassium chloride 20 meq extended release oral tablet (20 sources) Start: 12-06-2024 End: 12-06-2024 take 1 tablet by mouth once daily potassium chloride ER (KLOR-CON) 20 mEq tablet Indications: Hypokalemia , Malignant neoplasm of ascending colon (HCC) Take 1 tablet by mouth once daily. 30 tablet 2 12/06/2024 12/06/2024 Discontinued Start: 04-16-2024 End: 06-22-2024 take 1 tablet by mouth twice daily, then take 1 tablet by mouth once daily potassium chloride ER (KLOR-CON) 20 mEq tablet Indications: CINV (chemotherapy-induced nausea and vomiting) , Hypokalemia Take 1 [...] 10-18-2023 End: 09-12-2024 take 1 tablet by miguel twice daily potassium chloride (K-TAB) 10 mEq tablet Take 10 mEq by mouth twice daily. 0 Active Comment on above: Take 10 mEq by mouth twice daily. Potassium Chloride (Klor-Con M20) 20 MEQ Tab.Er.Prt (14 sources) Start: 10-25-2019 End: 07-26-2020 take 1 [...] rate if infusion is not tolerated potassium chloride iv piggyback 60 mEq (20 mEq x 3 doses) (1 source) Start: 12-02-2024 End: 12-02-2024 20 mEq, INTRAVENOUS, at 50-100 mL/hr, Administer over 1-2 Hours, EVERY 1 HOUR, 3 doses, First dose on Mon12/02/24 at 0900, Last dose on Mon12/02/24 at 1100, Dispensed as potassium chloride 20 mEq/100 mL x 3 = 60 mEq. Potassium 2.6 to 3 infuse 60mEq KCl IV over 3 hours. NONCYTOTOXIC VESICANT If ordered with infusion rate range, start with maximum infusion rate and decrease rate if infusion is not tolerated potassium citrate 10 meq extended release oral tablet (2 sources) Metabolic Alkalinizer Start: 12-21-2016 POTASSIUM CITRATE ER 10 MEQ (1080 MG) CR-TABS POTASSIUM CITRATE [id number] Cecily Rudd MD Sennosides (Senna) 8.6 mg tablet (10 sources) Start: 10-18-2023 End: 09-12-2024 take 1 tablet by mouth twice daily Sennosides (Senna) 8.6 mg tablet Discontinued 8.6 mg PO TWICE A DAY October 18, 2023 12:00am September 12, 2024 8:39pm Start: 10-18-2023 take 1 tablet by miguel twice daily Sennosides (Senna) 8.6 mg tablet Active 8.6 mg PO TWICE A DAY October 18, 2023 12:00am sennosides, mcc 8.6 mg oral tablet (20 sources) Start: 10-18-2023 End: 09-12-2024 Start: 09-27-2023 End: 01-18-2024 take 1 tablet [...] mg / trimethoprim 160 mg oral tablet (20 sources) Dihydrofolate Reductase Inhibitor Antibacterial, Sulfonamide Antimicrobial Start: 12-13-2023 End: 09-12-2024 Start: 12-13-2023 End: 09-12-2024 Sulfamethoxazole-Trimethopri m (Bactrim Ds) 800-160 mg tablet Discontinued 1 {tbl} PO TWICE A DAY December 13, 2023 12:00am September 12, 2024 8:40pm Start: 10-24-2023 End: 11-06-2023 Start: 10-24-2023 End: 11-06-2023 Sulfamethoxazole-Trimethopri m (Bactrim Ds) 800-160 mg tablet Discontinued 1 {tbl} PO TWICE A DAY 13 0 October 24, 2023 12:00am November 05, 2023 [...] 360 tablet 1 10/23/2023 10/24/2024 Discontinued Start: 08-01-2023 End: 09-12-2024 Start: 07-24-2020 End: 05-07-2024 Start: 07-24-2020 End: 10-18-2023 Divalproex (Depakote Er) 250 mg tablet extended release 24 hr Discontinued 750 mg PO TWICE A DAY 180 0 August 25, 2023 12:00am October 18, 2023 10:33am Start: 07-24-2020 End: 08-24-2023 Divalproex (Depakote Er) [...] daily at bedtime. Take 3 tablets by mo uth once daily AND 3 tablets daily at bedtime. zinc oxide 130 mg/ml topical cream (20 sources) Start: 09-27-2023 End: 01-18-2024 zinc oxide (DESITIN) 13 % cream Apply to affected area as needed. 09/27/2023 01/18/2024 Discontinued (Discontinued by Patient) (1 source) Start: 10-25-2019 End: 07-26-2020 Problems Active Problems Problem Classification Problem Date Documented Da te Episodic/Chronic Acute myocardial infarction (20 sources) Myocardial infarction; Translations: [ST elevation (STEMI) myocardial infarction of unspecified site] Onset: 11-21-2024 Chronic Alcohol-related disorders (15 sources) Alcohol dependence; Translations: [Alcohol dependence, uncomplicated] [...] Onset: 4 01-09-2024 Chronic Cancer of colon (11 sources) History of malignant neoplasm of colon; Translations: [Personal history of other malignant neoplasm of large intestine] 04-16-2024 Episodic Cardiac arrest and ventricular fibrillation (8 sources) Ventricular fibrillation; Translations: [Cardiac arrest, cause unspecified] 11-21-2024 Chronic Cardiac dysrhythmias (19 sources) Ventricular tachycardia; Translations: [VT (ventricular tachycardia)] Onset: 5 11-22-2024 Chronic Coronary atherosclerosis and other heart disease (10 sources) Acute coronary syndrome; Translations: [Acute ischemic heart disease, unspecified] Onset: 5 11-21-2024 Chronic Deficiency and other anemia (2 sources) Iron deficiency anemia secondary to inadequate dietary iron intake; Translations: [Other iron deficiency anemias] 12-28-2023 Episodic Deficiency and other anemia (20 sources) Anemia; Translations: [Anemia, unspecified] 08-31-2023 Episodic E Codes: Adverse effects of medical drugs (2 sources) Adverse effect of antineoplastic and immunosuppressive drugs, initial encounter; Translations: [Adverse effect of other opioids, initial encounter] Onset: Episodic E Codes: Fall (15 sources) Fall; Translations: [Unspecified fall, initial encounter] 08-04-2020 Episodic Epilepsy; convulsions (20 sources) Partial epilepsy with impairment of consciousness; Translations: [Localization-related (focal) (partial) symptomatic epilepsy and epileptic syndromes with complex partial seizures, not intractable, without status epilepticus] Onset: 9 Chronic Esophageal disorders (20 sources) Gastroesophageal reflux disease; Translations: [Gastro-esophageal reflux [...] Onset: 5 01-10-2024 Episodic Nonspecific chest pain (5 sources) Chest pain; Translations: [Chest pain, unspecified] Onset: 5 11-21-2024 Episodic Nutritional deficiencies (20 sources) Deficiency of macronutrients; Translations: [Unspecified severe protein-calorie malnutrition] Onset: 9 Resolved: 0 05-03-2019 Chronic Open wounds of extremities (13 sources) Dog bite of hand; Translations: [Open bite of right hand, initial encounter] 08-24-2022 Episodic Osteoporosis (20 sources) Osteoporosis; Translations: [Age-related osteoporosis without current pathological fracture] 09-04-2024 Chronic Other aftercare (1 source) Drug therapy finding; Translations: [Encounter for therapeutic drug level monitoring] Episodic Other circulatory disease (11 sources) Low blood pressure; Translations: [Hypotension, unspecified] 09-02-2023 Episodic Other circulatory disease (18 sources) H/O ventricular fibrillation; Translations: [Personal history of other diseases of the circulatory system] Onset: 5 11-22-2024 Episodic Other connective tissue disease (2 sources) History of operative procedure on shoulder; Translations: [Presence of unspecified artificial shoulder joint] Chronic Other connective tissue disease (1 source) Spasm; Translations: [Other muscle spasm] 09-16-2024 Episodic Other fractures (4 sources) Closed fracture of rib; Translations: [Fracture [...] tremor] Onset: Chronic Other infections; including parasitic (3 sources) H/O: colitis; Translations: [Personal history of other infectious and parasitic diseases] 11-21-2024 Episodic Other infections; including parasitic (1 source) History of Clostridium difficile intestinal infection; Translations: [Personal history of other infectious and [...] (acute) (chronic); Translations: [Cancer related pain] Onset: 5 Chronic Other nervous system disorders (1 source) Enhanced physiological tremor; Translations: [Tremor, unspecified] 12-18-2023 Episodic Other non-traumatic joint disorders (1 source) Instability of joint of right knee; Translations: [Other instability, right knee] 09-16-2024 Episodic Other nutritional; endocrine; and metabolic disorders (15 sources) Hypomagnesemia; Translations: [Hypomagnesemia] 08-04-2020 Chronic Other nutritional; endocrine; and metabolic disorders (1 source) Weight loss; Translations: [Abnormal weight loss] 06-17-2024 Episodic Other nutritional; endocrine; and metabolic disorders (2 sources) Weight decreased; Translations: [Abnormal weight loss] 06-25-2024 Episodic Other screening for suspected conditions (not mental disorders or infectious disease) (2 sources) Full blood count abnormal; Translations: [Other specified abnormal findings of blood chemistry] Episodic Other upper respiratory disease (2 sources) Seasonal allergy; Translations: [Other seasonal allergic rhinitis] Onset: 12-21-2016 Chronic Peritonitis and intestinal abscess (3 sources) Abdominal abscess; Translations: [Peritoneal abscess] 10-11-2023 Episodic Poisoning by other medications and drugs (11 sources) Sodium valproate adverse reaction; Translations: [Poisoning by other antiepileptic and sedative-hypnotic drugs, accidental (unintentional), initial encounter] 09-02-2023 Episodic Rehabilitation care; fitting of prostheses; and adjustment of devices (1 source) Follow-up status; Translations: [Encounter for fitting and adjustment of non-vascular catheter] 10-04-2023 Episodic Residual codes; unclassified (11 sources) Altered mental status; Translations: [Altered mental status, unspecified] 09-13-2023 Episodic Residual codes; unclassified (2 sources) History of antineoplastic chemotherapy; Translations: [Personal history of antineoplastic chemotherapy] 11-25-2024 Episodic Screening and history of mental health and substance abuse codes (2 sources) Ex-tobacco user; Translations: [Personal history of nicotine dependence] 01-29-2024 Episodic Secondary malignancies (3 sources) Secondary malignant neoplasm of liver; 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] 11-18-2024 Chronic Secondary malignancies (2 sources) Secondary malignant neoplasm of liver and intrahepatic bile duct; 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)] Onset: 10-02-202 5 Chronic Septicemia (except in labor) (11 sources) Sepsis; Translations: [Sepsis, unspecified organism] 09-13-2023 Episodic Shock (4 sources) Cardiogenic shock; Translations: [Cardiogenic shock] 11-21-2024 Episodic Thyroid disorders (1 source) Hypothyroidism; Translations: [Hypothyroidism, unspecified] 12-18-2023 Chronic Unclassified (2 sources) Stool finding; Translations: [Other fecal abnormalities] Onset: 7 12-21-2016 Unclassified (2 sources) Autogenerated Problem Onset: 5 11-21-2024 Unclassified (1 source) Established Patient Onset: 5 Past or Other Problems Problem Classification Problem Date Documented Da te Episodic/Chronic Abdominal pain (20 sources) Right lower quadrant pain; Translations: [Right lower quadrant pain] Onset: 03-15-2024 03-07-2024 Episodic Deficiency and other anemia (20 sources) Iron [...] 09-09-2023 09-13-2023 Episodic Other aftercare (20 sources) Patient encounter status; Translations: [Encounter for therapeutic drug level monitoring] Onset: 09-19-2023 Resolved: 09-25-2023 09-19-2023 Episodic Other aftercare (20 sources) Under care of palliative care physician; Translations: [Encounter for palliative care] Onset: 08-20-2024 08-20-2024 Episodic Other aftercare (1 source) Aftercare following surgery for neoplasm; Translations: [Aftercare following surgery for neoplasm] Onset: 09-17-2024 Episodic Other aftercare (1 source) Encounter for palliative care; Translations: [Palliative care by specialist] Onset: 08-20-2024 Episodic Other connective tissue disease (20 sources) Disorder of skeletal muscle; Translations: [Other symptoms and signs involving the musculoskeletal system] Onset: 09-08-2023 09-09-2023 Episodic Other connective tissue disease (1 source) Other symptoms and signs involving the musculoskeletal system; Translations: [Muscular deconditioning] Onset: 09-09-2023 Episodic Other connective tissue disease (1 source) Other muscle spasm; Translations: [Muscle spasm] Onset: 09-16-2024 Episodic Other gastrointestinal disorders (20 sources) Disorder [...] swelling, mass and lump, unspecified site] Onset: 08-14-2024 Episodic Other lower respiratory disease (1 source) Other nonspecific abnormal finding of lung field; Translations: [Lung nodules] Onset: 05-03-2024 Episodic Other lower respiratory disease (1 source) Solitary pulmonary nodule; Translations: [Lung nodule] Onset: 01-29-2024 Episodic Other nervous system disorders (20 sources) Abnormal gait; Translations: [Unspecified abnormalities of gait and mobility] Onset: 09-08-2023 09-09-2023 Episodic Other nervous system disorders (20 sources) Postoperative pain ; Translations: [Other acute postprocedural pain] Onset: 08-29-2024 08-29-2024 Episodic Other nervous system disorders (1 source) Other acute postprocedural pain; Translations: [Post-op pain] Onset: 01-03-2024 Episodic Other non-traumatic joint disorders (1 source) Other instability, right knee; Translations: [Knee buckling, right] Onset: 09-16-2024 Episodic Other nutritional; endocrine; and metabolic disorders (20 sources) Loss of appetite; Translations: [Anorexia] Onset: 01-28-2019 Resolved: 05-03-2019 05-03-2019 Episodic Other nutritional; endocrine; and metabolic disorders (20 sources) Adult failure to thrive syndrome; Translations: [Adult failure to thrive] Onset: 09-08-2023 09-09-2023 Episodic Other nutritional; endocrine; and metabolic disorders (20 sources) Feeding problem; Translations: [Feeding difficulties] Onset: 09-19-2023 Resolved: 09-25-2023 09-19-2023 Episodic Other nutritional; endocrine; and metabolic disorders (20 sources) Decreased body mass index; Translations: [Body mass index (BMI) 19.9 or less, adult] Onset: 08-14-2024 08-14-2024 Episodic Other nutritional; endocrine; and metabolic disorders (1 source) Anorexia; Translations: [Anorexia] Onset: 09-08-2023 Episodic Other nutritional; endocrine; and metabolic disorders (1 source) Adult failure to thrive; Translations: [Failure to thrive in adult] Onset: 09-09-2023 Episodic Other nutritional; endocrine; and metabolic disorders (1 source) Body mass index (BMI) 19.9 or less, adult; Translations: [BMI < 18.5] Onset: 08-14-2024 Episodic Other nutritional; endocrine; and metabolic disorders (1 source) Abnormal weight loss; Translations: [Weight loss] Onset: 06-25-2024 Episodic Residual codes; unclassified (20 sources) Current drinker; Translations: [Other specified health status] Onset: 01-28-2019 Resolved: 07-06-2021 07-06-2021 Episodic Residual codes; unclassified (20 sources) At risk of delirium; Translations: [Other specified personal risk factors, not elsewhere classified] Onset: 09-09-2023 09-09-2023 Episodic Residual codes; unclassified (20 sources) Postoperative state; Translations: [Other specified postprocedural states] Onset: 08-28-2024 08-28-2024 Episodic Unclassified (1 source) Finding of abdominopelvic segment of trunk 08-05-2024 Results Test Name Value Interpretation Reference Range Facility [facility] 01-14-2025 CNPN Normal [facility] CNPNon 01-09-2025 CNPN Normal [facility] CBC W Auto Differential pane l (Bld)on 01-07-2025 Basophils (Bld) [#/Vol] 0.10 10*3/uL Normal <0.11 [facility] Comment on above: Order Comment: Speci men Type: BLOOD SPECIMENOrdering Facility: [facility] Address: [address] [place] [address] Performed By: #### 5 7021-8 ####[facility] [id number] [place] [address] [place] Basophils/100 WBC (Bld) 1.3 % Normal [facility] Comment on above: Order Comment: Speci men Type: BLOOD SPECIMENOrdering Facility: [facility] Address: [address] [place] [address] Performed By: #### 5 7021-8 ####[facility] [id number] [place] [address] [place] Differential cell count method Nom (Bld) Auto Normal [facility] Comment on above: Order Comment: Speci men Type: BLOOD SPECIMENOrdering Facility: [facility] Address: [address] [place] [address] Performed By: #### 5 7021-8 ####[facility] [id number] [place] [address] [place] Eosinophils (Bld) [#/Vol] 0.26 10*3/uL Normal <0.46 [facility] Comment on above: Order Comment: Speci men Type: BLOOD SPECIMENOrdering Facility: [facility] Address: [address] [place] [address] Performed By: #### 5 7021-8 ####[facility] [id number] [place] [address] [place] Eosinophils/100 WBC (Bld) 3.4 % Normal [facility] Comment on above: Order Comment: Speci men Type: BLOOD SPECIMENOrdering Facility: [facility] Address: [address] [place] [address] Performed By: #### 5 7021-8 ####[facility] [id number] [place] [address] [place] Erythrocyte distribution width (RBC) [Ratio] 16.2 % High 11.5-15.0 [facility] Comment on above: Order Comment: Speci men Type: BLOOD SPECIMENOrdering Facility: [facility] Address: [address] [place] [address] Performed By: #### 5 7021-8 ####[facility]ITALNCL[facility] [id number] [place] [address] [place] Hematocrit (Bld) [Volume fraction] 29.0 % Low 36.0-46.0 [facility] Comment on above: Order Comment: Speci men Type: BLOOD SPECIMENOrdering Facility: [facility] Address: [address] [place] [address] Performed By: #### 5 7021-8 ####[facility]ITALNCL[facility] [id number] [place] [address] [place] Hemoglobin (Bld) [Mass/Vol] 9.2 g/dL Low 11.5-15.5 [facility] Comment on above: Order Comment: Speci men Type: BLOOD SPECIMENOrdering Facility: [facility] Address: [address] [place] [address] Performed By: #### 5 7021-8 ####[facility] [id number] [place] [address] [place] Immature granulocytes (Bld) [#/Vol] 10*3/uL Normal <0.10 [facility] Comment on above: Order Comment: Speci men Type: BLOOD SPECIMENOrdering Facility: [facility] Address: [address] [place] [address] Performed By: #### 5 7021-8 ####[facility] [id number] [place] [address] [place] Immature granulocytes/100 WBC (Bld) 0.3 % Normal [facility] Comment on above: Order Comment: Speci men Type: BLOOD SPECIMENOrdering Facility: [facility] Address: [address] [place] [address] Performed By: #### 5 7021-8 ####[facility] [id number] [place] [address] [place] Lymphocytes (Bld) [#/Vol] 1.32 10*3/uL Normal 1.00-4.00 [facility] Comment on above: Order Comment: Speci men Type: BLOOD SPECIMENOrdering Facility: [facility] Address: [address] [place] [address] Performed By: #### 5 7021-8 ####[facility] [id number] [place] [address] [place] Lymphocytes/100 WBC (Bld) 17.5 % Normal [facility] Comment on above: Order Comment: Speci men Type: BLOOD SPECIMENOrdering Facility: [facility] Address: [address] [place] [address] Performed By: #### 5 7021-8 ####[facility]PITALNCCALDERONA [id number] [place] [address] [place] MCH (RBC) [Entitic mass] 28.6 pg Normal 26.0-34.0 [facility] Comment on above: Order Comment: Speci men Type: BLOOD SPECIMENOrdering Facility: [facility] Address: [address] [place] [address] Performed By: #### 5 7021-8 ####[facility] [id number] [place] [address] [place] MCHC (RBC) [Mass/Vol] 31.7 g/dL Normal 30.5-36.0 [facility] Comment on above: Order Comment: Speci men Type: BLOOD SPECIMENOrdering Facility: [facility] Address: [address] [place] [address] Performed By: #### 5 7021-8 ####[facility] [id number] [place] [address] [place] MCV (RBC) [Entitic vol] 90.1 fL Normal 80.0-100.0 [facility] Comment on above: Order Comment: Speci men Type: BLOOD SPECIMENOrdering Facility: [facility] Address: [address] [place] [address] Performed By: #### 5 7021-8 ####[facility] [id number] [place] [address] [place] Monocytes (Bld) [#/Vol] 0.63 10*3/uL Normal <0.87 [facility] Comment on above: Order Comment: Speci men Type: BLOOD SPECIMENOrdering Facility: [facility] Address: [address] [place] [address] Performed By: #### 5 7021-8 ####[facility] H[facility]PITALNCLIA [id number] [place] [address] [place] Monocytes/100 WBC (Bld) 8.3 % Normal [facility] Comment on above: Order Comment: Speci men Type: BLOOD SPECIMENOrdering Facility: [facility] Address: [address] [place] [address] Performed By: #### 5 7021-8 ####[facility]ITALWNCLIA [id number] [place] [address] [place] Neutrophils (Bld) [#/Vol] 5.22 10*3/uL Normal 1.45-7.50 [facility] Comment on above: Order Comment: Speci men Type: BLOOD SPECIMENOrdering Facility: [facility] Address: [address] [place] [address] Performed By: #### 5 7021-8 ####[facility] [id number] [place] [address] [place] Neutrophils/100 WBC (Bld) 69.2 % Normal [facility] Comment on above: Order Comment: Speci men Type: BLOOD SPECIMENOrdering Facility: [facility] Address: [address] [place] [address] Performed By: #### 5 7021-8 ####[facility] [id number] [place] [address] [place] Nucleated RBC (Bld) [#/Vol] 10*3/uL Normal <0.01 [facility] Comment on above: Order Comment: Speci men Type: BLOOD SPECIMENOrdering Facility: [facility] Address: [address] [place] [address] Performed By: #### 5 7021-8 ####[facility] [id number] [place] [address] [place] Nucleated RBC/100 WBC (Bld) [Ratio] 0.0 /100 WBC Normal [facility] Comment on above: Order Comment: Speci men Type: BLOOD SPECIMENOrdering Facility: [facility] Address: [address] [place] [address] Performed By: #### 5 7021-8 ####[facility] [id number] [place] [address] [place] Platelet mean volume (Bld) [Entitic vol] 9.7 fL Normal 9.0-12.7 [facility] Comment on above: Order Comment: Speci men Type: BLOOD SPECIMENOrdering Facility: [facility] Address: [address] [place] [address] Performed By: #### 5 7021-8 ####[facility] BISHNUALLOYFUAD [id number] [place] [address] [place] Platelets (Bld) [#/Vol] 232 10*3/uL Normal 150-400 [facility] Comment on above: Order Comment: Speci men Type: BLOOD SPECIMENOrdering Facility: [facility] Address: [address] [place] [address] Performed By: #### 5 7021-8 ####[facility] HOSPITALNCCALDERONA [id number] [place] [address] [place] RBC (Bld) [#/Vol] 3.22 10*6/uL Low 3.90-5.20 [facility] Comment on above: Order Comment: Speci men Type: BLOOD SPECIMENOrdering Facility: [facility] Address: [address] [place] [address] Performed By: #### 5 7021-8 ####[facility] HOSPITALNCLIA [id number] [place] [address] [place] WBC (Bld) [#/Vol] 7.55 10*3/uL Normal 3.70-11.00 [facility] Comment on above: Order Comment: Speci men Type: BLOOD SPECIMENOrdering Facility: [facility] Address: [address] [place] [address] Performed By: #### 5 7021-8 ####[facility] MILLWNCLIA [id number] [place] [address] [place] [facility] Carcinoembryonic Ag [Mass/Vol] 49.3 ng/mL High <=2.9 [facility] Comment on above: Order Comment: Speci men Type: BLOOD SPECIMENOrdering Facility: [facility] Address: [address] [place] [address] Result Comment: Carc inoembryonic antigen test is used as an aid in monitoring response to treatment or recurrence in patients with established colorectal, breast, lung, prostatic, pancreatic, and ovarian carcinomas. Clinical correlation is required.The Carcinoembryonic antigen test was performed using the Inmagic Unicel DXI paramagnetic particle chemiluminescent immunoassay method. Results obtained with different assay methods or kits cannot be used interchangeably. Performed By: #### 2 039-6 ####[facility] LABCLIA [id number] [place] [address] [place] Comprehensive metabolic 2000 panelon 01-07-2025 Albumin [Mass/Vol] 3.4 g/dL Low 3.9-4.9 [facility] Comment on above: Order Comment: Speci men Type: BLOOD SPECIMENOrdering Facility: [facility] Address: [address] [place] [address] Performed By: #### 2 4323-8, 32743-1 ####[facility] HOSPITALNCLIA [id number] [place] [address] [place] ALP [Catalytic activity/Vol] 114 U/L Normal 34-123 [facility] Comment on above: Order Comment: Speci men Type: BLOOD SPECIMENOrdering Facility: [facility] Address: [address] [place] [address] Performed By: #### 2 4323-8, 42963-2 ####[facility] HOSPITALNCLIA [id number] [place] [address] [place] ALT [Catalytic activity/Vol] U/L Low 7-38 [facility] Comment on above: Order Comment: Speci men Type: BLOOD SPECIMENOrdering Facility: [facility] Address: [address] [place] [address] Performed By: #### 2 4323-8, ####[facility] MILLTOWNCLIA [id number] [place] [address] [place] Anion gap [Moles/Vol] 11 mmol/L Normal 8-15 [facility] Comment on above: Order Comment: Speci men Type: BLOOD SPECIMENOrdering Facility: [facility] Address: [address] [place] [address] Performed By: #### 2 4323-8, 59348-3 ####[facility] HOSPITALWNCLIA [id number] [place] [address] [place] AST [Catalytic activity/Vol] 17 U/L Normal 13-35 [facility] Comment on above: Order Comment: Speci men Type: BLOOD SPECIMENOrdering Facility: [facility] Address: [address] [place] [address] Performed By: #### 2 4323-8, ####[facility] MILLWNCLIA [id number] [place] [address] [place] Bilirubin [Mass/Vol] mg/dL Low 0.2-1.3 [facility] Comment on above: Order Comment: Speci men Type: BLOOD SPECIMENOrdering Facility: [facility] Address: [address] [place] [address] Performed By: #### 2 4323-8, ####[facility] MILLTOWNCLIA [id number] [place] [address] [place] Calcium [Mass/Vol] 8.9 mg/dL Normal 8.5-10.2 [facility] Comment on above: Order Comment: Speci men Type: BLOOD SPECIMENOrdering Facility: [facility] Address: [address] [place] [address] Performed By: #### 2 4323-8, ####[facility] LARANCCALDERONLetha [id number] [place] [address] [place] Chloride [Moles/Vol] 103 mmol/L Normal 98-107 [facility] Comment on above: Order Comment: Speci men Type: BLOOD SPECIMENOrdering Facility: [facility] Address: [address] [place] [address] Performed By: #### 2 4323-8, ####[facility] HOSPITALNCKELSIE [id number] [place] [address] [place] CO2 [Moles/Vol] 24 mmol/L Normal 22-30 [facility] Comment on above: Order Comment: Speci men Type: BLOOD SPECIMENOrdering Facility: [facility] Address: [address] [place] [address] Performed By: #### 2 4323-8, ####[facility] HOSPITALGUMEA [id number] [place] [address] [place] Creatinine [Mass/Vol] 0.54 mg/dL Low 0.58-0.96 [facility] Comment on above: Order Comment: Speci men Type: BLOOD SPECIMENOrdering Facility: [facility] Address: [address] [place] [address] Performed By: #### 2 4323-8, ####[facility] HOSPITALNCLIA [id number] [place] [address] [place] eGFRcr SerPlBld CKD-EPI 2020 102 mL/min/1.73m??? Normal >=60 [facility] Comment on above: Order Comment: Speci men Type: BLOOD SPECIMENOrdering Facility: [facility] Address: [address] [place] [address] Result Comment: Sana mated Glomerular Filtration Rate [...] actual GFR. Performed By: #### 2 4323-8, ####[facility] [id number] [place] [address] [place] Glucose [Mass/Vol] 101 mg/dL High 74-99 [facility] Comment on above: Order Comment: Speci men Type: BLOOD SPECIMENOrdering Facility: [facility] Address: [address] [place] [address] Result Comment: The [place] Diabetes Association (ADA) provides guidance for cutoff [...] Standards of Medical Care in Diabetes 2016, [place] [employer] Association. Diabetes Care. 2016.39(Suppl 1). Performed By: #### 2 4323-8, ####[facility] [id number] [place] [address] [place] Potassium [Moles/Vol] 4.1 mmol/L Normal 3.7-5.1 [facility] Comment on above: Order Comment: Speci men Type: BLOOD SPECIMENOrdering Facility: [facility] Address: [address] [place] [id number] Performed By: #### 2 4323-8, ####[facility] MILLTOWNCLIA [id number] [place] [address] [place] Protein [Mass/Vol] 6.5 g/dL Normal 6.3-8.0 [facility] Comment on above: Order Comment: Speci men Type: BLOOD SPECIMENOrdering Facility: [facility] Address: [address] [place] [address] Performed By: #### 2 4323-8, ####[facility] MILLTOWNCLIA [id number] [place] [address] [place] Sodium [Moles/Vol] 138 mmol/L Normal 136-144 [facility] Comment on above: Order Comment: Speci men Type: BLOOD SPECIMENOrdering Facility: [facility] Address: [address] [place] [address] Performed By: #### 2 4323-8, ####[facility] HOSPITALNCLIA [id number] [place] [address] [place] Urea nitrogen [Mass/Vol] 18 mg/dL Normal 7-21 [facility] Comment on above: Order Comment: Speci men Type: BLOOD SPECIMENOrdering Facility: [facility] Address: [address] [place] [address] Performed By: #### 2 4323-8, ####[facility] MILLALLOYNCLIA [id number] [place] [address] [place] Magnesium [facility] 01-07 Magnesium [Mass/Vol] 1.6 mg/dL Low 1.7-2.3 [facility] Comment on above: Order Comment: Speci men Type: BLOOD SPECIMENOrdering Facility: [facility] Address: [address] [place] [address] Performed By: #### 2 4323-8, ####[facility] HOSPITALNCKELSIE [id number] [place] [id number] [place] CNPNon 01-02-2025 CNPN Normal [facility] DPYD/UGT1A1 GENOTYPING PANEL on 01-02-2025 DPYD/UGT1A1 GENOTYPING PANEL RESULT Normal [facility] Comment on above: Order Comment: Speci men Type: BLOOD SPECIMENOrdering Facility: [facility] Address: [address] [place] [address] Result Comment: [facility] DPYD and UGT1A1 GenotypingLaboratory Accession Number: [id number] Genotype: *1/*1DPYD Activity Score: 2DPYD Predicted Phenotype: DPYD Normal SxihzpfgqdyNQS2U3 Genotype: *1/*80+*46LSH0I8 Predicted Phenotype: UGT1A1 Intermediate MetabolizerInterpretation:Two normal function alleles were observed in the DPYD gene (seevariant details below) resulting in an activity score of 2. Thisactivity score is associated with a DPYD normal metabolizer phenotype.DPYD normal metabolizers are not expected to require (based onpharmacogenomic results alone) selective adjustment of the dose ofmedications metabolized by DPD. Please consult a clinical pharmacistfor more information regarding drug therapy. Questions regardingmolecular testing details should be directed .One decreased function UGT1A1 allele, in combination with either onenormal function or one increased function UGT1A1 allele, wasobserved in this sample (see variant details below). This isassociated with a UGT1A1 intermediate metabolizer phenotype. FAI2W0ohbytanebkov metabolizers are not expected to require (based onpharmacogenomic results alone) selective adjustment of the dose ofmedications metabolized by UGT. Please consult a clinical pharmacistfor more information regarding drug therapy. Questions regardingmolecular testing details should be directed .The DPYD gene encodes dihydropyrimidine dehydrogenase (DPD). Thisenzyme is involved in the metabolism of fluoropyrimidines. The VJQ8A8czyw encodes UDP-glucuronosyltransferase (UGT). UGT is involved in themetabolism of certain medications including ones used in oncology. Forclinical correlation, drug-specific guidelines are available toprovide phenotype assignment and therapeutic recommendations based onphenotype. Patients who carry genetic variants associated with alteredmetabolism may be at risk for an adverse or poor response to drugsthat are predominantly metabolized by the associated enzyme (DPD orUGT). For patients with altered DPD and/or UGT activity, alternativepharmacological agents or dosing adjustments may be needed formedications metabolized by this enzyme to avoid an unexpected oradverse response.Please note that this DPYD genotyping test includes variants that maynot have been assayed in a previous test performed elsewhere. If thereis discordance of phenotype results between laboratories, it is likelya function of the different variants assayed in each test. Themethodology section of the report (see below) lists the variantsinterrogated by this test.DPYD Variant Details:[id number] Variant Details:UGT1A1 [id number], c.-346C>T, g.[id number]>T (legacy name 80); [id number], c.-41_-40dupTA g.[id number] (legacy name 28)DPYD Additional Information:In addition to increased risk of 5-fluorouracil toxicity, variants inthe DPYD gene may be associated with DPD deficiency, an autosomalrecessive inborn error of metabolism (OMIM: 877941). DPD deficiencyexhibits a wide range of phenotypic variability, from no symptoms to tawanda rare severe neurological disorder with onset in infancy orchildhood (prevalence unknown). For the vast majority of affectedindividuals, the first and only symptom is sensitivity to5-fluorouracil and capecitabine. It is possible that individuals withDPD deficiency may be identified by the presence of two no-functionDPYD variants (activity score = 0). However, this test is designed asa pharmacogenomic test and is not intended as a diagnostic or carriertest for DPD deficiency. A formal genetics consultation is recommendedfor those with concerns regarding DPD deficiency.Limitations:DNA studies do not provide a definitive genetic or pharmacogenomicrisk in all individuals. This test is designed to detect a specificset of variants (see list below) in the DPYD gene (OMIM 947081) kliCRW3E3 gene (OMIM 856260). This test does not detect all sequencevariants in either gene. Uncommon variants or single nucleotidepolymorphisms may affect binding of primers and probes and may resultin false negative, false positive, or indeterminate results. Theabsence of abnormal variants as analyzed in this test is interpretedas the presence of *1/*1 (wild type/normal) genotype. The phenotypeprovided in the interpretation may be impacted by undetected geneticand/or non-genetic factors such as drug-drug interactions.Methodology:Purified genomic DNA was subjected to polymerase chain reaction-basedamplification. The DPYD (NM_000110.3) and UGT1A1 (NM_000463.3) geneswere interrogated for known, clinically relevant variants. Primerextension products were analyzed using matrix-assisted laserdesorption/ionization massspectrometry, and specific genotypesassigned were then translated to the appropriate star (*) allele (DPYDand UGT1A1) and activity score (DPYD), see lists below. The referencegenome used is GRCh38/hg38.UGT1A1 star alleles: *1, *6, *27, *28, *36, *37, *80, *80+*28,*80+*36, and *80+*37. These alleles are detected using the presence orabsence of the following variants, RefSNP ID: [id number], [id number] (TA repeats), and [id number].DPYD star alleles and targeted variants:RefSNP ID Legacy Total Allele Highest Allele Name Frequency Frequency General Population (Population)No variantdetected *[id number] *2A 0.6% 2.4% (Eur F)[id number] *8 0.01% 0.03% (S )jz5435396 *10 n/iuk52995572 *12 0.0008% 0.003% (S )[id number] *13 0.03% 0.06% (Eur F)[id number] Y186C 0.2% 2.15% ()[id number] c.2846A>T 0.3% 0.5% (Eur NF)wq33062823 HapB3 1.4% 2.1 % (Eur NF)da43808041 HapB3(c.1236G>A) 1.4% 2.1% (Eur NF)Population frequencies are from gnomAD and may be different inspecific ethnic groups. The allele frequency shown is the total allelefrequency in all populations. The highest allele frequency for asingle population is also noted (Eur F = Nigerien, Eur NF = non-Nigerien, S = South ). Note: [id number] (HapB3)and [id number] (c.1236G>A) are in linkage disequilibrium thus aretypically seen together.References:1) Clinical Pharmacogenetics Implementation Consortium (CPIC):www.CPICpgx.org2) Pharmacogene Variation Consortium (PharmVar): www.PharmVar.org3) Genome Aggregation Database V2.1.1 (gnomAD), accessed March2021, https://gnomad.IonLogix Systemstitute.org4) Justin M, Leida EM, Mahin DIGGS, et al. PharmacogenomicsKnowledge for Personalized Medicine Clinical Pharmacology andTherapeutics (2012) 92(4): 414-417.5) Douglas U, Anahi DE, Mar SM, et al. Clinical PharmacogeneticsImplementation Consortium (CPIC) Guideline for DihydropyrimidineDehydrogenase Genotype and Fluoropyrimidine Dosin Update. ClinPharmacol Ther. 2018;103(2):210-216.6) Medlineplus, TeachStreet Library of Medicine 2020. Dihydropyrimidinedehydrogenase deficiency, accessed 13 October 2020,https://medlineplus.gov/genetics/condition/dihydropyrimidin e-aouxkphewqexj-tonqfefppc/#resources7) Juan N, Portillo PELLETIER, Jordon LUCIO, umberto Escobar ABP. Purine andPyrimidine Metabolism: Pyrimidine Metabolism: DihydropyrimidineDehydrogenase. Lilly's Principles and Practice of MedicalGenetics and Genomics: Metabolic Disorders, Seventh Edition. Edited byBossman Lepe al, Elsevier. 2020. Sections 6.3.4 - 6.3.4.4https://zoa-psluqsqcxyh-sih.ccmain.[facility].org/#!/content /book/3-s2.0-G8990291554654029618?scrollTo=%70tc39421357) Sohan RS, Radha MH, Carole CE, et al. Clinical PharmacogeneticsImplementation Consortium (CPIC) Guideline for UGT1A1 and AtazanavirPrescribing. Clinical Pharmacology and Therapeutics (2016) Apr;99(4):363-9.9) Elfego Mcfadden. Overview of Glibert's syndrome. Drug TherBull. 2019 Apr 57(2):27-30.10) [facility] 2020, Gilbert Syndrome, accessed 13 October 2020,https://[email or web address].[email or web address]/health/diseases/08681-iwhjrb ts-syndromeDisclaimer:This test was developed and its performance characteristics determinedby [facility]'s Pathology and Laboratory Medicine Department. Ithas not been cleared or approved by the FDA. [facility] is regulated under CLIAas certified to perform high-complexity testing. This test is used forclinical purposes. It should not be regarded as investigational or forresearch.Test performed at [facility], [address] [place] [address]. CLIA Number: [id number] performed by Drea Nichols, PhD Performed By: #### D UPNL1 ####[facility] LABCLIA [id number] [place] [address] [place] CNPNon 01-01-2025 CNPN Normal [facility] CNOVSPon 12-31-2024 CNOVSP Normal [facility] CNPNon 12-31-2024 CNPN Normal [facility] CBC W Auto Differential pane l (Bld)on 12-27-2024 Basophils (Bld) [#/Vol] 0.05 10*3/uL Normal <0.11 [facility] Comment on above: Order Comment: Speci men Type: BLOOD SPECIMENOrdering Facility: [facility] Address: [address] [place] [address] Performed By: #### 5 7021-8 ####[facility] [id number] [place] [address] [place] Basophils/100 WBC (Bld) 0.6 % Normal [facility] Comment on above: Order Comment: Speci men Type: BLOOD SPECIMENOrdering Facility: [facility] Address: [address] [place] [address] Performed By: #### 5 7021-8 ####[facility] BISHNUWKALIELIA [id number] [place] [address] [place] Differential cell count method Nom (Bld) Auto Normal [facility] Comment on above: Order Comment: Speci men Type: BLOOD SPECIMENOrdering Facility: [facility] Address: [address] [place] [address] Performed By: #### 5 7021-8 ####[facility] HOSPITALKALIELIA [id number] [place] [address] [place] Eosinophils (Bld) [#/Vol] 0.31 10*3/uL Normal <0.46 [facility] Comment on above: Order Comment: Speci men Type: BLOOD SPECIMENOrdering Facility: [facility] Address: [address] [place] [address] Performed By: #### 5 7021-8 ####[facility] HOSPITALKALIELIA [id number] [place] [address] [place] Eosinophils/100 WBC (Bld) 4.0 % Normal [facility] Comment on above: Order Comment: Speci men Type: BLOOD SPECIMENOrdering Facility: [facility] Address: [address] [place] [address] Performed By: #### 5 7021-8 ####[facility] HOSPITALWNCLIA [id number] [place] [address] [place] Erythrocyte distribution width (RBC) [Ratio] 16.1 % High 11.5-15.0 [facility] Comment on above: Order Comment: Speci men Type: BLOOD SPECIMENOrdering Facility: [facility] Address: [address] [place] [address] Performed By: #### 5 7021-8 ####[facility] HOSPITALNCLIA [id number] [place] [address] [place] Hematocrit (Bld) [Volume fraction] 27.1 % Low 36.0-46.0 [facility] Comment on above: Order Comment: Speci men Type: BLOOD SPECIMENOrdering Facility: [facility] Address: [address] [place] [address] Performed By: #### 5 7021-8 ####[facility] [id number] [place] [address] [place] Hemoglobin (Bld) [Mass/Vol] 8.9 g/dL Low 11.5-15.5 [facility] Comment on above: Order Comment: Speci men Type: BLOOD SPECIMENOrdering Facility: [facility] Address: [address] [place] [address] Performed By: #### 5 7021-8 ####[facility] [id number] [place] [address] [place] Immature granulocytes (Bld) [#/Vol] 0.04 10*3/uL Normal <0.10 [facility] Comment on above: Order Comment: Speci men Type: BLOOD SPECIMENOrdering Facility: [facility] Address: [address] [place] [address] Performed By: #### 5 7021-8 ####[facility] [id number] [place] [address] [place] Immature granulocytes/100 WBC (Bld) 0.5 % Normal [facility] Comment on above: Order Comment: Speci men Type: BLOOD SPECIMENOrdering Facility: [facility] Address: [address] [place] [address] Performed By: #### 5 7021-8 ####[facility] [id number] [place] [address] [place] Lymphocytes (Bld) [#/Vol] 1.55 10*3/uL Normal 1.00-4.00 [facility] Comment on above: Order Comment: Speci men Type: BLOOD SPECIMENOrdering Facility: [facility] Address: [address] [place] [address] Performed By: #### 5 7021-8 ####[facility] [id number] [place] [address] [place] Lymphocytes/100 WBC (Bld) 19.9 % Normal [facility] Comment on above: Order Comment: Speci men Type: BLOOD SPECIMENOrdering Facility: [facility] Address: [address] [place] [address] Performed By: #### 5 7021-8 ####[facility] [id number] [place] [address] [place] MCH (RBC) [Entitic mass] 29.8 pg Normal 26.0-34.0 [facility] Comment on above: Order Comment: Speci men Type: BLOOD SPECIMENOrdering Facility: [facility] Address: [address] [place] [address] Performed By: #### 5 7021-8 ####[facility] [id number] [place] [address] [place] MCHC (RBC) [Mass/Vol] 32.8 g/dL Normal 30.5-36.0 [facility] Comment on above: Order Comment: Speci men Type: BLOOD SPECIMENOrdering Facility: [facility] Address: [address] [place] [address] Performed By: #### 5 7021-8 ####[facility] [id number] [place] [address] [place] MCV (RBC) [Entitic vol] 90.6 fL Normal 80.0-100.0 [facility] Comment on above: Order Comment: Speci men Type: BLOOD SPECIMENOrdering Facility: [facility] Address: [address] [place] [address] Performed By: #### 5 7021-8 ####[facility] MILLTOWNCL[facility] [id number] [place] [address] [place] Monocytes (Bld) [#/Vol] 1.15 10*3/uL High <0.87 [facility] Comment on above: Order Comment: Speci men Type: BLOOD SPECIMENOrdering Facility: [facility] Address: [address] [place] [address] Performed By: #### 5 7021-8 ####[facility] MILLWNCLIA [id number] [place] [address] [place] Monocytes/100 WBC (Bld) 14.8 % Normal [facility] Comment on above: Order Comment: Speci men Type: BLOOD SPECIMENOrdering Facility: [facility] Address: [address] [place] [address] Performed By: #### 5 7021-8 ####[facility]ITALNCLIA [id number] [place] [address] [place] Neutrophils (Bld) [#/Vol] 4.69 10*3/uL Normal 1.45-7.50 [facility] Comment on above: Order Comment: Speci men Type: BLOOD SPECIMENOrdering Facility: [facility] Address: [address] [place] [address] Performed By: #### 5 7021-8 ####[facility] MILLTOWNCLIA [id number] [place] [address] [place] Neutrophils/100 WBC (Bld) 60.2 % Normal [facility] Comment on above: Order Comment: Speci men Type: BLOOD SPECIMENOrdering Facility: [facility] Address: [address] [place] [address] Performed By: #### 5 7021-8 ####[facility] MILLWNCLIA [id number] [place] [address] [place] Nucleated RBC (Bld) [#/Vol] 10*3/uL Normal <0.01 [facility] Comment on above: Order Comment: Speci men Type: BLOOD SPECIMENOrdering Facility: [facility] Address: [address] [place] [address] Performed By: #### 5 7021-8 ####[facility] HOSPITALFUAD [id number] [place] [address] [place] Nucleated RBC/100 WBC (Bld) [Ratio] 0.0 /100 WBC Normal [facility] Comment on above: Order Comment: Speci men Type: BLOOD SPECIMENOrdering Facility: [facility] Address: [address] [place] [address] Performed By: #### 5 7021-8 ####[facility] HOSPITALKALIEKELSIE [id number] [place] [address] [place] Platelet mean volume (Bld) [Entitic vol] 10.3 fL Normal 9.0-12.7 [facility] Comment on above: Order Comment: Speci men Type: BLOOD SPECIMENOrdering Facility: [facility] Address: [address] [place] [address] Performed By: #### 5 7021-8 ####[facility] HOSPITALKALIEKELSIE [id number] [place] [address] [place] Platelets (Bld) [#/Vol] 173 10*3/uL Normal 150-400 [facility] Comment on above: Order Comment: Speci men Type: BLOOD SPECIMENOrdering Facility: [facility] Address: [address] [place] [address] Performed By: #### 5 7021-8 ####[facility] HOSPITALKALIELIA [id number] [place] [address] [place] RBC (Bld) [#/Vol] 2.99 10*6/uL Low 3.90-5.20 [facility] Comment on above: Order Comment: Speci men Type: BLOOD SPECIMENOrdering Facility: [facility] Address: [address] [place] [address] Performed By: #### 5 7021-8 ####[facility] [id number] [place] [address] [place] WBC (Bld) [#/Vol] 7.79 10*3/uL Normal 3.70-11.00 [facility] Comment on above: Order Comment: Speci men Type: BLOOD SPECIMENOrdering Facility: [facility] Address: [address] [place] [address] Performed By: #### 5 7021-8 ####[facility] [id number] [place] [address] [place] CEA SerPl-mCncon 12-27-2024 Carcinoembryonic Ag [Mass/Vol] 39.1 ng/mL High <=2.9 [facility] Comment on above: Order Comment: Speci men Type: BLOOD SPECIMENOrdering Facility: [facility] Address: [address] [place] [address] Result Comment: Carc inoembryonic antigen test is used as an aid in monitoring response to treatment or recurrence in patients with established colorectal, breast, lung, prostatic, pancreatic, and ovarian carcinomas. Clinical correlation is required.The Carcinoembryonic antigen test was performed using the [employer] Un[employer]el DXI paramagnetic particle chemiluminescent immunoassay method. Results obtained with different assay methods or kits cannot be used interchangeably. Performed By: #### 2 039-6 ####[facility] LABCLIA [id number] [place] [address] [place] CNOVSPon 12-27-2024 CNOVSP Normal [facility] Comprehensive metabolic 2000 panelon 12-27-2024 Albumin [Mass/Vol] 3.3 g/dL Low 3.9-4.9 [facility] Comment on above: Order Comment: Speci men Type: BLOOD SPECIMENOrdering Facility: [facility] Address: [address] [place] [address] Performed By: #### 1 9123-9, 33356-9 ####[facility] HUNTLIA [id number] [place] [address] [place] ALP [Catalytic activity/Vol] 95 U/L Normal 34-123 [facility] Comment on above: Order Comment: Speci men Type: BLOOD SPECIMENOrdering Facility: [facility] Address: [address] [place] [address] Performed By: #### 1 9123-9, 02257-2 ####[facility] BISHNUWKALIELIA [id number] [place] [address] [place] ALT [Catalytic activity/Vol] 5 U/L Low 7-38 [facility] Comment on above: Order Comment: Speci men Type: BLOOD SPECIMENOrdering Facility: [facility] Address: [address] [place] [address] Performed By: #### 1 9123-9, 14241-5 ####[facility] BISHNUALLOYKALIELIA [id number] [place] [address] [place] Anion gap [Moles/Vol] 11 mmol/L Normal 8-15 [facility] Comment on above: Order Comment: Speci men Type: BLOOD SPECIMENOrdering Facility: [facility] Address: [address] [place] [address] Performed By: #### 1 9123-9, 92558-6 ####[facility] HOSPITALKALIELIA [id number] [place] [address] [place] AST [Catalytic activity/Vol] 20 U/L Normal 13-35 [facility] Comment on above: Order Comment: Speci men Type: BLOOD SPECIMENOrdering Facility: [facility] Address: [address] [place] [address] Performed By: #### 1 9123-9, 98653-6 ####[facility] MILLTOWNCLIA [id number] [place] [address] [place] Bilirubin [Mass/Vol] 0.3 mg/dL Normal 0.2-1.3 [facility] Comment on above: Order Comment: Speci men Type: BLOOD SPECIMENOrdering Facility: [facility] Address: [address] [place], [place] [address] Performed By: #### 1 9123-9, 32605-8 ####[facility] MILLTOWNCLIA [id number] [place] [address] [place] Calcium [Mass/Vol] 9.2 mg/dL Normal 8.5-10.2 [facility] Comment on above: Order Comment: Speci men Type: BLOOD SPECIMENOrdering Facility: [facility] Address: [address] [place] [address] Performed By: #### 1 9123-9, 14077-6 ####[facility] MILLTOWNCLIA [id number] [place] [address] [place] Chloride [Moles/Vol] 102 mmol/L Normal 98-107 [facility] Comment on above: Order Comment: Speci men Type: BLOOD SPECIMENOrdering Facility: [facility] Address: [address] [place], [place] [address] Performed By: #### 1 23-9, ####[facility] MILLTOWNCL[facility] [id number] [place] [address] [place] CO2 [Moles/Vol] 23 mmol/L Normal 22-30 [facility] Comment on above: Order Comment: Speci men Type: BLOOD SPECIMENOrdering Facility: [facility] Address: [address] [place], [place] [address] Performed By: #### 1 9123-9, ####[facility] [id number] [place] [address] [place] Creatinine [Mass/Vol] 0.61 mg/dL Normal 0.58-0.96 [facility] Comment on above: Order Comment: Umesh baugh Type: BLOOD SPECIMENOrdering Facility: [facility] Address: [address] [place] [address] Performed By: #### 1 9123-9, 50252-2 ####[facility] [id number] [place] [address] [place] eGFRcr SerPlBld CKD-EPI 2020 99 mL/min/1.73m??? Normal >=60 [facility] Comment on above: Order Comment: Umesh baugh Type: BLOOD SPECIMENOrdering Facility: [facility] Address: [address] [place] [address] Result Comment: Sana mated Glomerular Filtration Rate [...] actual GFR. Performed By: #### 1 9123-9, 85643-0 ####[facility] [id number] [place] [address] [place] Glucose [Mass/Vol] 90 mg/dL Normal 74-99 [facility] Comment on above: Order Comment: Umesh baugh Type: BLOOD SPECIMENOrdering Facility: [facility] Address: [address] [place] [address] Result Comment: The [place] [employer] Association (ADA) provides guidance for cutoff [...] Standards of Medical Care in Diabetes 2016, [place] [employer]. Diabetes Care. 2016.39(Suppl 1). Performed By: #### 1 9123-9, 04177-5 ####[facility] MILLJUSTINWKALIELILetha [id number] [place] [address] [place] Potassium [Moles/Vol] 3.7 mmol/L Normal 3.7-5.1 [facility] Comment on above: Order Comment: Speci men Type: BLOOD SPECIMENOrdering Facility: [facility] Address: [address] [place] [address] Performed By: #### 1 9123-9, 26430-0 ####[facility] HOSPITALFUAD [id number] [place] [address] [place] Protein [Mass/Vol] 6.4 g/dL Normal 6.3-8.0 [facility] Comment on above: Order Comment: Speci men Type: BLOOD SPECIMENOrdering Facility: [facility] Address: [address] [place] [address] Performed By: #### 1 9123-9, 11484-7 ####[facility] H[facility]PITALFUAD [id number] [place] [address] [place] Sodium [Moles/Vol] 136 mmol/L Normal 136-144 [facility] Comment on above: Order Comment: Speci men Type: BLOOD SPECIMENOrdering Facility: [facility] Address: [address] [place] [address] Performed By: #### 1 9123-9, ####[facility] HOSPITALKALIELIA [id number] [place] [address] [place] Urea nitrogen [Mass/Vol] 16 mg/dL Normal 7-21 [facility] Comment on above: Order Comment: Speci men Type: BLOOD SPECIMENOrdering Facility: [facility] Address: [facility] [place] [address] Performed By: #### 1 9123-9, 75309-1 ####[facility] MILLTOWNCLIA [id number] [address] [facility] Magnesium SerPl-mCncon 12-27 Magnesium [Mass/Vol] 1.7 mg/dL Normal 1.7-2.3 [facility] Comment on above: Order Comment: Speci men Type: BLOOD SPECIMENOrdering Facility: [facility] Address: [facility] [place] [address] Performed By: #### 1 9123-9, 23366-2 ####[facility] MILLTOWNCLIA [id number] [address] [place] CNPNon 12-26-2024 CNPN Normal [facility] CNCNPATEDon 12-24-2024 CNCNPATED Normal [facility] CNPNon 12-18-2024 CNPN Normal [facility] Abdomen/Pelvis W IV Cont ONL Yon 12-17-2024 Abdomen/Pelvis W IV Cont ONLY Normal [facility] Absolute lymphocyte countOrd ered By: Johnny Colunga on 12-17-2024 Lymphocytes Auto (Unsp spec) [#/Vol] 0.88 10*3/uL 0.83-4.51 [facility] Anion gap in Serum or Plasma Ordered By: Johnny Colunga on 12-17-2024 Anion gap [Moles/Vol] 11 mmol/L 5-15 [facility] Automated lymphocyte count a s percentage of total leukocytesOrdered By: Johnny Colunga on 12-17-2024 Lymphocytes/100 WBC Auto (Unsp spec) 7.5 % Low 19-41 [facility] BUN/creatinine ratioOrdered By: Johnny Colunga on 09-23-2025 Urea nitrogen/Creatinine [Mass ratio] 35.0 mg/mg High 10-20 [facility] Basophil percentageOrdered B y: Johnny Raet on 12-17-2024 Basophils/100 WBC (Bld) 0.2 % 0-1 [facility] Bilirubin Test strip Ql (U)O rdered By: Johnny SosanaheedYuki on 12-17-2024 Bilirubin Ql (U) Negative Negative [facility] Bilirubin, totalOrdered By: Johnny Raet on 12-17-2024 Bilirubin [Mass/Vol] 0.19 mg/dL 0.00-1.30 [facility] CBC W/Diff, Automatedon 11-26 Absolute Lymph 0.88 X10 3/uL Normal 0.83-4.51 [facility] Comment on above: Performed By: #### L 100.0100, L501.2450, L503.6005, L500.4050 ####[facility] [address] [place], [address] Absolute Neut 9.7 X10 3/uL High 2.0-7.7 [facility] Comment on above: Performed By: #### L 100.0100, L501.2450, L503.6005, L500.4050 ####[facility] [address] [place], [address] Basophils/100 WBC (Bld) 0.2 % Normal 0-1 [facility] Comment on above: Performed By: #### L 100.0100, L501.2450, L503.6005, L500.4050 ####[facility] [address] [place], [address] Eosinophils/100 WBC (Bld) 0.0 % Normal 0-5 [facility] Comment on above: Performed By: #### L 100.0100, L501.2450, L503.6005, L500.4050 ####[facility] [address] [place], [address] Erythrocyte distribution width (RBC) [Ratio] 16.3 % High 11.6-14.6 [facility] Comment on above: Performed By: #### L 100.0100, L501.2450, L503.6005, L500.4050 ####[facility] [address] [place], [address] Hematocrit (Bld) [Volume fraction] 28.2 % Low 37-47 [facility] Comment on above: Performed By: #### L 100.0100, L501.2450, L503.6005, L500.4050 ####[facility] [address] [place], [address] Hemoglobin (Bld) [Mass/Vol] 9.1 g/dL Low 12.0-15.0 [facility] Comment on above: Performed By: #### L 100.0100, L501.2450, L503.6005, L500.4050 ####[facility] [address] [place], [address] IG% 0.500 Normal 0.0-0.9 [facility] Comment on above: Result Comment: IG% - Immature Granulocytes (promyelocytes, myelocytes andmetamyelocytes) > 1% indicates that a LEFT SHIFT is Present. Performed By: #### L 100.0100, L501.2450, L503.6005, L500.4050 ####[facility] [address] [place], [address] Lymphocytes/100 WBC (Bld) 7.5 % Low 19-41 [facility] Comment on above: Performed By: #### L 100.0100, L501.2450, L503.6005, L500.4050 ####[facility] [address] [place], [address] MCH (RBC) [Entitic mass] 28.9 pg Normal 27.0-32.0 [facility] Comment on above: Performed By: #### L 100.0100, L501.2450, L503.6005, L500.4050 ####[facility] [address] [place], [address] MCHC (RBC) [Mass/Vol] 32.3 g/dL Normal 32-36 [facility] Comment on above: Performed By: #### L 100.0100, L501.2450, L503.6005, L500.4050 ####[facility] [address] [place], [address] MCV (RBC) [Entitic vol] 89.5 fL Normal 81-99 [facility] Comment on above: Performed By: #### L 100.0100, L501.2450, L503.6005, L500.4050 ####[facility] [address] [place], [address] Monocytes/100 WBC (Bld) 9.4 % Normal 0-10 [facility] Comment on above: Performed By: #### L 100.0100, L501.2450, L503.6005, L500.4050 ####[facility] [address] [place], [address] Neutrophils/100 WBC (Bld) 82.4 % High 47-70 [facility] Comment on above: Performed By: #### L 100.0100, L501.2450, L503.6005, L500.4050 ####[facility] [address] [place], [address] Nucleated RBC (Bld) [#/Vol] 0 10*3/uL Normal 0-5 [facility] Comment on above: Performed By: #### L 100.0100, L501.2450, L503.6005, L500.4050 ####[facility] [address] [place], [address] Platelet mean volume (Bld) [Entitic vol] 10.1 fL Normal 6.2-12.0 [facility] Comment on above: Performed By: #### L 100.0100, L501.2450, L503.6005, L500.4050 ####[facility] [address] [place], [address] Platelets (Bld) [#/Vol] 325 10*3/uL Normal 150-450 [facility] Comment on above: Performed By: #### L 100.0100, L501.2450, L503.6005, L500.4050 ####[facility] [address] [place], [address] RBC (Bld) [#/Vol] 3.15 10*6/uL Low 4.2-5.4 [facility] Comment on above: Performed By: #### L 100.0100, L501.2450, L503.6005, L500.4050 ####[facility] [address] [place], [address] RDW SD 52.9 fl High 35.1-43.9 [facility] Comment on above: Performed By: #### L 100.0100, L501.2450, L503.6005, L500.4050 ####[facility] [address] [place], [address] WBC (Bld) [#/Vol] 11.8 10*3/uL High 4.4-11.0 [facility] Comment on above: Performed By: #### L 100.0100, L501.2450, L503.6005, L500.4050 ####[facility] [address] [place], [address] CNPNon 12-17-2024 CNPN Normal [facility] Carbon dioxide, total [Moles /volume] in Central venous bloodOrdered By: Johnny Colunga on 12-17-2024 CO2 [Moles/Vol] 23.1 mmol/L 21.0-32.0 [facility] Chloride assayOrdered By: Ty Colunga on 12-17-2024 Chloride [Moles/Vol] 101 mmol/L 98-108 [facility] Comprehensive Metabolic Prof ilon 12-17-2024 Albumin [Mass/Vol] 3.4 g/dL Normal 3.4-4.8 [facility] Comment on above: Performed By: #### L 100.0100, L501.2450, L503.6005, L500.4050 ####[facility] [address] [place], [address] Albumin/Globulin [Mass ratio] 1.1 {ratio} Normal 0.9-2.4 [facility] Comment on above: Performed By: #### L 100.0100, L501.2450, L503.6005, L500.4050 ####[facility] [address] [place], [address] ALK PHOS 109 U/L High 35-104 [facility] Comment on above: Performed By: #### L 100.0100, L501.2450, L503.6005, L500.4050 ####[facility] [address] [place], [address] ALT [Catalytic activity/Vol] 9 U/L Normal <=34 [facility] Comment on above: Performed By: #### L 100.0100, L501.2450, L503.6005, L500.4050 ####[facility] [address] [place], [address] AST [Catalytic activity/Vol] 25 U/L Normal <=31 [facility] Comment on above: Performed By: #### L 100.0100, L501.2450, L503.6005, L500.4050 ####[facility] [address] [place], [address] Bilirubin [Mass/Vol] 0.19 mg/dL Normal 0.00-1.30 [facility] Comment on above: Performed By: #### L 100.0100, L501.2450, L503.6005, L500.4050 ####[facility] [address] [place], [address] BUN/CRE 35.0 RATIO High 10-20 [facility] Comment on above: Performed By: #### L 100.0100, L501.2450, L503.6005, L500.4050 ####[facility] [address] [place], [address] Calcium [Mass/Vol] 9.0 mg/dL Normal 7.6-11.0 [facility] Comment on above: Performed By: #### L 100.0100, L501.2450, L503.6005, L500.4050 ####[facility] [address] [place], [address] Chloride [Moles/Vol] 101 mmol/L Normal 98-108 [facility] Comment on above: Performed By: #### L 100.0100, L501.2450, L503.6005, L500.4050 ####[facility] [address] [place], [address] CO2 [Moles/Vol] 23.1 mmol/L Normal 21.0-32.0 [facility] Comment on above: Performed By: #### L 100.0100, L501.2450, L503.6005, L500.4050 ####[facility] [address] [place], [address] Creatinine [Mass/Vol] 0.56 mg/dL Low 0.70-1.20 [facility] Comment on above: Performed By: #### L 100.0100, L501.2450, L503.6005, L500.4050 ####[facility] [address] [place], [address] ECRCL 42.50 ml/min Low 50-250 [facility] Comment on above: Performed By: #### L 100.0100, L501.2450, L503.6005, L500.4050 ####[facility] [address] [place], [address] GAP 11 Normal 5-15 [facility] Comment on above: Performed By: #### L 100.0100, L501.2450, L503.6005, L500.4050 ####[facility] [address] [place], [address] GFR/1.73 sq M.predicted among non-blacks MDRD (S/P/Bld) [Vol rate/Area] 101 mL/min/{1.73_m2} Normal >60 [facility] Comment on above: Result Comment: mL/m in/1.73m2 CKD-EPI Creatinine Equation (2020) Performed By: #### L 100.0100, L501.2450, L503.6005, L500.4050 ####[facility] [address] [place], [address] Globulin (S) [Mass/Vol] 3.0 g/dL Normal 2.2-4.2 [facility] Comment on above: Performed By: #### L 100.0100, L501.2450, L503.6005, L500.4050 ####[facility] [address] [place], [address] Glucose [Mass/Vol] 120 mg/dL High 70-99 [facility] Comment on above: Performed By: #### L 100.0100, L501.2450, L503.6005, L500.4050 ####[facility] [address] [place], [address] Potassium [Moles/Vol] 3.4 mmol/L Normal 3.3-5.1 [facility] Comment on above: Performed By: #### L 100.0100, L501.2450, L503.6005, L500.4050 ####[facility] [address] [place], [address] Sodium [Moles/Vol] 136 mmol/L Normal 133-145 [facility] Comment on above: Performed By: #### L 100.0100, L501.2450, L503.6005, L500.4050 ####[facility] [address] [place], [address] T PROT 6.4 g/dL Normal 5.9-8.4 [facility] Comment on above: Performed By: #### L 100.0100, L501.2450, L503.6005, L500.4050 ####[facility] [address] [place], [address] Urea nitrogen [Mass/Vol] 20 mg/dL High 4-19 [facility] Comment on above: Performed By: #### L 100.0100, L501.2450, L503.6005, L500.4050 ####[facility] [address] [place], [address] Emergency Department Summary on 12-17-2024 Emergency Department Summary Normal [facility] Eosinophil percentageOrdered By: Johnny Colunga on 12-17-2024 Eosinophils/100 WBC (Bld) 0.0 % 0-5 [facility] Erythrocyte distribution wid th ratioOrdered By: Johnny Colunga on 12-17-2024 Erythrocyte distribution width (RBC) [Ratio] 16.3 % High 11.6-14.6 [facility] Erythrocyte distribution wid th standard deviationOrdered By: Johnny Mirza on 12-17-2024 Erythrocyte distribution width (RBC) [Ratio] 52.9 fl High 35.1-43.9 [facility] Glomerular filtration rate ( GFR) estimation/1.73 sq m using serum, plasma, or whole bOrdered By: Johnny Colunga on 12-17-2024 GFR/1.73 sq M.predicted among non-blacks MDRD (S/P/Bld) [Vol rate/Area] 101 mL/min/{1.73_m2} >60 [facility] Hematocrit Auto (Bld) [Volum e fraction]Ordered By: Johnny Colunga on 12-17-2024 Hematocrit (Bld) [Volume fraction] 28.2 % Low 37-47 [facility] Hemoglobin measurementOrdere d By: [facility] CenterkamilaYuki on 12-17-2024 Hemoglobin (Bld) [Mass/Vol] 9.1 g/dL Low 12.0-15.0 [facility] Immature granulocytes/100 WB C Auto (Bld)Ordered By: Johnny Cristine on 12-17-2024 Immature granulocytes/100 WBC (Bld) 0.500 % 0.0-0.9 [facility] Ketones Test strip Ql (U)Ord ered By: [place] WaldemarYuki on 12-17-2024 Ketones Ql (U) Negative Negative [facility] Lactic Acidon 12-17-2024 Lactate [Moles/Vol] 1.5 mmol/L Normal 0.0-2.0 [facility] Comment on above: Order Comment: Y Performed By: #### L 100.0100, L501.2450, L503.6005, L500.4050 ####[facility] [address] [facility] [place], [place], [id number] Lipaseon 12-17-2024 Lipase [Catalytic activity/Vol] 165 U/L High 13-75 [facility] Comment on above: Result Comment: Efrem caldwell note:LIPASE revised reference range effective 22.New Lipase methodology. Expected to produce lower valuesthan the previous assay method.NEW Reference Range: 13 - 75 U/L Performed By: #### L 100.0100, L501.2450, L503.6005, L500.4050 ####[facility] [address] [place], [address] MCV (mean corpuscular volume ) determinationOrdered By: Johnny Colunga on 12-17-2024 MCV (RBC) [Entitic vol] 89.5 fL 81-99 [facility] Mean corpuscular hemoglobin (MCH) determinationOrdered By: Johnny Colunga on 12-17-2024 MCH (RBC) [Entitic mass] 28.9 pg 27.0-32.0 [facility] Monocyte percentageOrdered B y: Johnny Colunga on 12-17-2024 Monocytes/100 WBC (Bld) 9.4 % 0-10 [facility] Mucus LM Ql (Urine sed)Order ed By: Johnny Colunga on 12-17-2024 Mucus Ql (Urine sed) 0 SEEN /hpf [facility] Neutrophil percentageOrdered By: Johnny Colunga on 12-17-2024 Neutrophils/100 WBC (Bld) 82.4 % High 47-70 [facility] Nitrite Test strip Ql (U)Ord ered By: Johnny Colunga on 12-17-2024 Nitrite Ql (U) Negative Negative [facility] No Panel InformationOrdered By: Johnny Colunga on 12-17-2024 25 U/L <32 [facility] Platelet countOrdered By: Ty senal Cristine on 12-17-2024 Platelets (Bld) [#/Vol] 325 10*3/uL 150-450 [facility] Potassium measurement (mass/ volume)Ordered By: Johnny Colunga on 12-17-2024 Potassium (Unsp spec) [Mass/Vol] 3.4 mmol/L 3.3-5.1 [facility] Protein Test strip Ql (U)Ord ered By: Johnny Colunga on 12-17-2024 Protein Ql (U) 30 mg/dl High Negative [facility] RBC Auto (Bld) [#/Vol]Ordere d By: Johnny Colunga on 12-17-2024 RBC (Bld) [#/Vol] 3.15 10*6/uL Low 4.2-5.4 [facility] Serum creatinine measurement (mass/volume)Ordered By: Johnny Colunga on 12-17-2024 Creatinine [Mass/Vol] 0.56 mg/dL Low 0.70-1.20 [facility] Serum globulin measurementOr dered By: Johnny Colunga on 12-17-2024 Globulin (S) [Mass/Vol] 3.0 g/dL 2.2-4.2 [facility] Serum glucose measurement (m ass/volume)Ordered By: Johnny Colunga on 12-17-2024 Glucose [Mass/Vol] 120 mg/dL High 70-99 [facility] Serum or plasma alanine ramirez otransferase (ALT) measurementOrdered By: Johnny Colunga on 12-17-2024 ALT [Catalytic activity/Vol] 9 U/L <35 [facility] Serum or plasma albumin renetta urement (mass/volume)Ordered By: Johnny Mirza on 12-17-2024 Albumin [Mass/Vol] 3.4 g/dL 3.4-4.8 [facility] Serum or plasma albumin/glob ulin mass ratioOrdered By: Johnny Colunga on 12-17-2024 Albumin/Globulin [Mass ratio] 1.1 {ratio} 0.9-2.4 [facility] Serum or plasma alkaline marquez sphatase measurementOrdered By: Johnny Colunga on 12-17-2024 ALP [Catalytic activity/Vol] 109 U/L High 35-104 [facility] Serum or plasma calcium renetta urement (mass/volume)Ordered By: Johnny Mirza on 12-17-2024 Calcium [Mass/Vol] 9.0 mg/dL 7.6-11.0 [facility] Serum or plasma urea nitroge n measurement (mass/volume)Ordered By: Johnny Colunga on 12-17-2024 Urea nitrogen [Mass/Vol] 20 mg/dL High 4-19 [facility] Sodium levelOrdered By: Luc Colunga on 12-17-2024 Sodium [Moles/Vol] 136 mmol/L 133-145 [facility] Squamous epithelial cells de tection in urine sediment by light microscopyOrdered By: Johnny Colunga on 12-17-2024 Epithelial cells.squamous LM Ql (Urine sed) 0-5 SEEN /hpf 5-10 [facility] Total proteinOrdered By: Thomas Colunga on 12-17-2024 Protein [Mass/Vol] 6.4 g/dL 5.9-8.4 [facility] Urinalysis, Completeon 12-17 EPI,SQUAMOUS 0-5 SEEN Normal 5-10 [facility] Comment on above: Order Comment: ACRROLL CTOR TO SPECIFY Performed By: #### L 400.0001 ####[facility] [address] [place], [address] BACTERIA 0 SEEN Normal None Seen [facility] Comment on above: Order Comment: CARROLL CTOR TO SPECIFY Performed By: #### L 400.0001 ####[facility] [address] [place], [address] Mucus Ql (Urine sed) 0 SEEN Normal [facility] Comment on above: Order Comment: CARROLL CTOR TO SPECIFY Performed By: #### L 400.0001 ####[facility] [address] [place], [address] RBC 0 SEEN Normal 0-5 [facility] Comment on above: Order Comment: CARROLL CTOR TO SPECIFY Performed By: #### L 400.0001 ####[facility] [address] [place], [address] WBC 0 SEEN Normal 0-5 [facility] Comment on above: Order Comment: CARROLL CTOR TO SPECIFY Performed By: #### L 400.0001 ####[facility] [address] [place], [address] Urine clarityOrdered By: Thomas Colunga on 12-17-2024 Clarity (U) Clear Clear [facility] Urine color determinationOrd ered By: Johnny Colunga on 12-17-2024 Color (U) Yellow Yellow [facility] Urine glucose detectionOrder ed By: Johnny Colunga on 12-17-2024 Glucose Ql (U) Normal mg/dl Normal [facility] Urine leukocyte esterase det ection by dipstickOrdered By: Johnny Colunga on 12-17-2024 Leukocyte esterase Test strip Ql (U) Negative Negative [facility] Urine pHOrdered By: Johnny Langston on 12-17-2024 pH (U) 6.0 [pH] 5.0 - 8.0 [facility] Urine sediment bacteria coun t by microscopy (number/high power field)Ordered By: Johnny Colunga on 12-17-2024 Bacteria LM.HPF (Urine sed) [#/Area] 0 /[HPF] None Seen [facility] Urine specific gravity measu rementOrdered By: Johnny Colunga on 12-17-2024 Specific gravity (U) [Rel density] 1.010 1.002-1.03 0 [facility] Urine urobilinogen measureme ntOrdered By: Johnny Colunga on 12-17-2024 Urobilinogen Ql (U) Normal mg/dl Normal [facility] White blood cell (WBC) count Ordered By: Johnny Colunga on 12-17-2024 WBC (Bld) [#/Vol] 11.8 10*3/uL High 4.4-11.0 [facility] White blood cell countOrdere d By: Johnny Colunga on 12-17-2024 White blood cell count 0 SEEN /hpf 0-5 [facility] CNPNon 12-16-2024 CNPN Normal [facility] CBC W Auto Differential pane l (Bld)on 12-13-2024 Basophils (Bld) [#/Vol] 0.09 10*3/uL Normal <0.11 [facility] Comment on above: Order Comment: Speci men Type: BLOOD SPECIMENOrdering Facility: [facility] Address: [address] [place] [address] Performed By: #### 5 7021-8 ####[facility] MILLTOWNCLIA [id number] [place] [address] [place] Basophils/100 WBC (Bld) 1.2 % Normal [facility] Comment on above: Order Comment: Speci men Type: BLOOD SPECIMENOrdering Facility: [facility] Address: [address] [place] [address] Performed By: #### 5 7021-8 ####[facility] HOSPITALNCLIA [id number] [place] [address] [place] Differential cell count method Nom (Bld) Auto Normal [facility] Comment on above: Order Comment: Speci men Type: BLOOD SPECIMENOrdering Facility: [facility] Address: [address] [place] [address] Performed By: #### 5 7021-8 ####[facility] MILLWRILIA [id number] [place] [address] [place] Eosinophils (Bld) [#/Vol] 0.10 10*3/uL Normal <0.46 [facility] Comment on above: Order Comment: Speci men Type: BLOOD SPECIMENOrdering Facility: [facility] Address: [address] [place] [address] Performed By: #### 5 7021-8 ####[facility] MILLTOWNCLIA [id number] [place] [address] [place] Eosinophils/100 WBC (Bld) 1.4 % Normal [facility] Comment on above: Order Comment: Speci men Type: BLOOD SPECIMENOrdering Facility: [facility] Address: [address] [place] [address] Performed By: #### 5 7021-8 ####[facility] MILLTOWNCLIA [id number] [place] [address] [place] Erythrocyte distribution width (RBC) [Ratio] 15.3 % High 11.5-15.0 [facility] Comment on above: Order Comment: Speci men Type: BLOOD SPECIMENOrdering Facility: [facility] Address: [address] [place] [address] Performed By: #### 5 7021-8 ####[facility]PITALKALIEOR[facility] [id number] [place] [address] [place] Hematocrit (Bld) [Volume fraction] 26.3 % Low 36.0-46.0 [facility] Comment on above: Order Comment: Speci men Type: BLOOD SPECIMENOrdering Facility: [facility] Address: [address] [place] [address] Performed By: #### 5 7021-8 ####[facility]ITALKALIEOR[facility] [id number] [place] [address] [place] Hemoglobin (Bld) [Mass/Vol] 8.7 g/dL Low 11.5-15.5 [facility] Comment on above: Order Comment: Speci men Type: BLOOD SPECIMENOrdering Facility: [facility] Address: [address] [place] [address] Performed By: #### 5 7021-8 ####[facility] HOSPITALFUAD [id number] [place] [address] [place] Immature granulocytes (Bld) [#/Vol] 0.06 10*3/uL Normal <0.10 [facility] Comment on above: Order Comment: Speci men Type: BLOOD SPECIMENOrdering Facility: [facility] Address: [address] [place] [address] Performed By: #### 5 7021-8 ####[facility] HOSPITALNCLIA [id number] [place] [address] [place] Immature granulocytes/100 WBC (Bld) 0.8 % Normal [facility] Comment on above: Order Comment: Speci men Type: BLOOD SPECIMENOrdering Facility: [facility] Address: [address] [place] [address] Performed By: #### 5 7021-8 ####[facility] [id number] [place] [address] [place] Lymphocytes (Bld) [#/Vol] 1.53 10*3/uL Normal 1.00-4.00 [facility] Comment on above: Order Comment: Speci men Type: BLOOD SPECIMENOrdering Facility: [facility] Address: [address] [place] [address] Performed By: #### 5 7021-8 ####[facility] [id number] [place] [address] [place] Lymphocytes/100 WBC (Bld) 21.1 % Normal [facility] Comment on above: Order Comment: Speci men Type: BLOOD SPECIMENOrdering Facility: [facility] Address: [address] [place] [address] Performed By: #### 5 7021-8 ####[facility] [id number] [place] [address] [place] MCH (RBC) [Entitic mass] 29.3 pg Normal 26.0-34.0 [facility] Comment on above: Order Comment: Speci men Type: BLOOD SPECIMENOrdering Facility: [facility] Address: [address] [place] [address] Performed By: #### 5 7021-8 ####[facility] [id number] [place] [address] [place] MCHC (RBC) [Mass/Vol] 33.1 g/dL Normal 30.5-36.0 [facility] Comment on above: Order Comment: Speci men Type: BLOOD SPECIMENOrdering Facility: [facility] Address: [address] [place] [address] Performed By: #### 5 7021-8 ####[facility] BISHNUCucaNCLIA [id number] [place] [address] [place] MCV (RBC) [Entitic vol] 88.6 fL Normal 80.0-100.0 [facility] Comment on above: Order Comment: Speci men Type: BLOOD SPECIMENOrdering Facility: [facility] Address: [address] [place] [address] Performed By: #### 5 7021-8 ####[facility] HOSPITALNCA [id number] [place] [address] [place] Monocytes (Bld) [#/Vol] 0.74 10*3/uL Normal <0.87 [facility] Comment on above: Order Comment: Speci men Type: BLOOD SPECIMENOrdering Facility: [facility] Address: [address] [place] [address] Performed By: #### 5 7021-8 ####[facility] HOSPITALNCA [id number] [place] [address] [place] Monocytes/100 WBC (Bld) 10.2 % Normal [facility] Comment on above: Order Comment: Speci men Type: BLOOD SPECIMENOrdering Facility: [facility] Address: [address] [place] [address] Performed By: #### 5 7021-8 ####[facility] DAYTONLIA [id number] [place] [address] [place] Neutrophils (Bld) [#/Vol] 4.72 10*3/uL Normal 1.45-7.50 [facility] Comment on above: Order Comment: Speci men Type: BLOOD SPECIMENOrdering Facility: [facility] Address: [address] [place] [address] Performed By: #### 5 7021-8 ####[facility] HOSPITALNCA [id number] [place] [address] [place] Neutrophils/100 WBC (Bld) 65.3 % Normal [facility] Comment on above: Order Comment: Speci men Type: BLOOD SPECIMENOrdering Facility: [facility] Address: [address] [place] [address] Performed By: #### 5 7021-8 ####[facility] [id number] [place] [address] [place] Nucleated RBC (Bld) [#/Vol] 10*3/uL Normal <0.01 [facility] Comment on above: Order Comment: Speci men Type: BLOOD SPECIMENOrdering Facility: [facility] Address: [address] [place] [address] Performed By: #### 5 7021-8 ####[facility] [id number] [place] [address] [place] Nucleated RBC/100 WBC (Bld) [Ratio] 0.0 /100 WBC Normal [facility] Comment on above: Order Comment: Speci men Type: BLOOD SPECIMENOrdering Facility: [facility] Address: [address] [place] [address] Performed By: #### 5 7021-8 ####[facility] DAYTONKELSIE [id number] [place] [address] [place] Platelet mean volume (Bld) [Entitic vol] 9.5 fL Normal 9.0-12.7 [facility] Comment on above: Order Comment: Speci men Type: BLOOD SPECIMENOrdering Facility: [facility] Address: [address] [place] [address] Performed By: #### 5 7021-8 ####[facility] DAYTONLI [id number] [place] [address] [place] Platelets (Bld) [#/Vol] 282 10*3/uL Normal 150-400 [facility] Comment on above: Order Comment: Speci men Type: BLOOD SPECIMENOrdering Facility: [facility] Address: [address] [place] [address] Performed By: #### 5 7021-8 ####[facility] HOSPITALNCLIA [id number] [place] [address] [place] RBC (Bld) [#/Vol] 2.97 10*6/uL Low 3.90-5.20 [facility] Comment on above: Order Comment: Speci men Type: BLOOD SPECIMENOrdering Facility: [facility] Address: [address] [place] [address] Performed By: #### 5 7021-8 ####[facility] HOSPITALNCLIA [id number] [place] [address] [place] WBC (Bld) [#/Vol] 7.24 10*3/uL Normal 3.70-11.00 [facility] Comment on above: Order Comment: Speci men Type: BLOOD SPECIMENOrdering Facility: [facility] Address: [address] [place] [address] Performed By: #### 5 7021-8 ####[facility] HOSPITALNCLIA [id number] [place] [address] [place] CEA SerPl-mCncon 12-13-2024 Carcinoembryonic Ag [Mass/Vol] 29.1 ng/mL High <=2.9 [facility] Comment on above: Order Comment: Speci men Type: BLOOD SPECIMENOrdering Facility: [facility] Address: [address] [place] [address] Result Comment: Carc inoembryonic antigen test is used as an aid in monitoring response to treatment or recurrence in patients with established colorectal, breast, lung, prostatic, pancreatic, and ovarian carcinomas. Clinical correlation is required.The Carcinoembryonic antigen test was performed using the [employer] Un[employer]el DXI paramagnetic particle chemiluminescent immunoassay method. Results obtained with different assay methods or kits cannot be used interchangeably. Performed By: #### 2 039-6 ####[facility] LABCLIA [id number] [facility] CENTERMichelle [address] [address] [place] CNOVSPon 12-13-2024 CNOVSP Normal [facility] Comprehensive metabolic 2000 panelon 12-13-2024 Albumin [Mass/Vol] 3.3 g/dL Low 3.9-4.9 [facility] Comment on above: Order Comment: Speci men Type: BLOOD SPECIMENOrdering Facility: [facility] Address: [address] [place] [address] Performed By: #### 2 4323-8, ####[facility] HOSPITALFUAD [id number] [place] [address] [place] ALP [Catalytic activity/Vol] 127 U/L High 34-123 [facility] Comment on above: Order Comment: Speci men Type: BLOOD SPECIMENOrdering Facility: [facility] Address: [address] [place] [address] Performed By: #### 2 4323-8, ####[facility] HOSPITALGUMEA [id number] [place] [address] [place] ALT [Catalytic activity/Vol] 7 U/L Normal 7-38 [facility] Comment on above: Order Comment: Speci men Type: BLOOD SPECIMENOrdering Facility: [facility] Address: [address] [place] [address] Performed By: #### 2 4323-8, ####[facility] DAYTONLIA [id number] [place] [address] [place] Anion gap [Moles/Vol] 11 mmol/L Normal 8-15 [facility] Comment on above: Order Comment: Speci men Type: BLOOD SPECIMENOrdering Facility: [facility] Address: [address] [place] [address] Performed By: #### 2 4323-8, ####[facility] MILLTOWNCLIA [id number] [place] [address] [place] AST [Catalytic activity/Vol] 20 U/L Normal 13-35 [facility] Comment on above: Order Comment: Speci men Type: BLOOD SPECIMENOrdering Facility: [facility] Address: [address] [place] [address] Performed By: #### 2 4323-8, ####[facility] MILLTOWNCLIA [id number] [place] [address] [place] Bilirubin [Mass/Vol] 0.2 mg/dL Normal 0.2-1.3 [facility] Comment on above: Order Comment: Speci men Type: BLOOD SPECIMENOrdering Facility: [facility] Address: [address] [place] [address] Performed By: #### 2 432-8, ####[facility] DAYTONLIA [id number] [place] [address] [place] Calcium [Mass/Vol] 9.1 mg/dL Normal 8.5-10.2 [facility] Comment on above: Order Comment: Speci men Type: BLOOD SPECIMENOrdering Facility: [facility] Address: [address] [place] [address] Performed By: #### 2 4323-8, ####[facility] MILLWNCLIA [id number] [place] [address] [place] Chloride [Moles/Vol] 101 mmol/L Normal 98-107 [facility] Comment on above: Order Comment: Speci men Type: BLOOD SPECIMENOrdering Facility: [facility] Address: [address] [place] [address] Performed By: #### 2 4323-8, ####[facility] MILLWNCLIA [id number] [place] [address] [place] CO2 [Moles/Vol] 25 mmol/L Normal 22-30 [facility] Comment on above: Order Comment: Speci men Type: BLOOD SPECIMENOrdering Facility: [facility] Address: [address] [place] [address] Performed By: #### 2 4323-8, ####[facility] HOSPITALNCA [id number] [place] [address] [place] Creatinine [Mass/Vol] 0.56 mg/dL Low 0.58-0.96 [facility] Comment on above: Order Comment: Speci men Type: BLOOD SPECIMENOrdering Facility: [facility] Address: [address] [place] [address] Performed By: #### 2 4323-8, ####[facility] HOSPITALNCLIA [id number] [place] [address] [place] eGFRcr SerPlBld CKD-EPI 2020 101 mL/min/1.73m??? Normal >=60 [facility] Comment on above: Order Comment: Speci men Type: BLOOD SPECIMENOrdering Facility: [facility] Address: [address] [place] [address] Result Comment: Sana mated Glomerular Filtration Rate [...] actual GFR. Performed By: #### 2 4323-8, ####[facility] HOSPITALWNCLIA [id number] [place] [address] [place] Glucose [Mass/Vol] 113 mg/dL High 74-99 [facility] Comment on above: Order Comment: Speci men Type: BLOOD SPECIMENOrdering Facility: [facility] Address: [address] [place], [place] [address] Result Comment: The [place] [employer] (ADA) provides guidance for cutoff [...] Standards of Medical Care in Diabetes 2016, [place] [employer]. Diabetes Care. 2016.39(Suppl 1). Performed By: #### 2 4323-8, ####[facility] [id number] [place] [address] [place] Potassium [Moles/Vol] 3.9 mmol/L Normal 3.7-5.1 [facility] Comment on above: Order Comment: Umesh baugh Type: BLOOD SPECIMENOrdering Facility: [facility] Address: [address] [place] [address] Performed By: #### 2 4323-8, ####[facility] DAYTONLIA [id number] [place] [address] [place] Protein [Mass/Vol] 6.1 g/dL Low 6.3-8.0 [facility] Comment on above: Order Comment: Umesh baugh Type: BLOOD SPECIMENOrdering Facility: [facility] Address: [address] [place], [place] [address] Performed By: #### 2 4323-, ####[facility] MILLWNCLIA [id number] [place] [address] [place] Sodium [Moles/Vol] 137 mmol/L Normal 136-144 [facility] Comment on above: Order Comment: Speci men Type: BLOOD SPECIMENOrdering Facility: [facility] Address: [facility] [place] [address] Performed By: #### 2 4323-8, 10683-1 ####[facility] MILLWNCLIA [id number] [place] [address] [place] Urea nitrogen [Mass/Vol] 17 mg/dL Normal 7-21 [facility] Comment on above: Order Comment: Speci men Type: BLOOD SPECIMENOrdering Facility: [facility] Address: [address] [place] [address] Performed By: #### 2 4323-8, ####[facility] HOSPITALNCLIA [id number] [place] [address] [place] Magnesium SerPl-mCncon 12-13 Magnesium [Mass/Vol] 1.9 mg/dL Normal 1.7-2.3 [facility] Comment on above: Order Comment: Speci men Type: BLOOD SPECIMENOrdering Facility: [facility] Address: [address] [place] [address] Performed By: #### 2 4323-8, ####[facility] HOSPITALNCLIA [id number] [place] [address] [place] CNPNon 12-11-2024 CNPN Normal [facility] Basic metabolic 2000 panelOr dered By: Merlyn Veloz on 12-06-2024 Anion gap [Moles/Vol] 11 mmol/L 8 - 15 mmol/L [facility] Calcium [Mass/Vol] 9.0 mg/dL 8.5 - 10. 2 mg/dL [facility] Chloride [Moles/Vol] 95 mmol/L Low 98 - 10 7 mmol/L [facility] CO2 [Moles/Vol] 26 mmol/L 22 - 30 mmol/L [facility] Creatinine [Mass/Vol] 0.61 mg/dL 0.58 - 0.96 mg/dL [facility] GFR/1.73 sq M.predicted among non-blacks MDRD (S/P/Bld) [Vol rate/Area] 99 mL/min/{1.73_m2} - PINF [facility] Comment on above: Estimated Glomerular Filtration [...] not accurately reflect actual GFR. Glucose [Mass/Vol] 123 mg/dL High 74 - 99 mg/dL [facility] Comment on above: The [place] Diab[employer] Association (ADA) provides guidance for [...] Standards of Medical Care in Diabetes 2016, [place] [employer] Association. Diabetes Care. 2016.39(Suppl 1). Interpretation and review of laboratory results Abnormal [facility] Potassium [Moles/Vol] 3.2 mmol/L Low 3.7 - 5.1 mmol/L [facility] Sodium [Moles/Vol] 132 mmol/L Low 136 - 144 mmol/L [facility] Urea nitrogen [Mass/Vol] 12 mg/dL 7 - 21 mg/dL [facility] Basic metabolic 2000 panelon 12-06-2024 Anion gap [Moles/Vol] 11 mmol/L Normal 8-15 [facility] Comment on above: Order Comment: Speci men Type: BLOOD SPECIMENOrdering Facility: [facility] Address: [address] [place] [address] Performed By: #### 2 4321-2 ####[facility] CITYKELSIE [id number] [place] [address] [place] Calcium [Mass/Vol] 9.0 mg/dL Normal 8.5-10.2 [facility] Comment on above: Order Comment: Speci men Type: BLOOD SPECIMENOrdering Facility: [facility] Address: [address] [place] [address] Performed By: #### 2 4321-2 ####[facility] MILLTOWNCLIA [id number] [place] [address] [place] Chloride [Moles/Vol] 95 mmol/L Low 98-107 [facility] Comment on above: Order Comment: Speci men Type: BLOOD SPECIMENOrdering Facility: [facility] Address: [address] [place] [address] Performed By: #### 2 4321-2 ####[facility] MILLWNCLIA [id number] [place] [address] [place] CO2 [Moles/Vol] 26 mmol/L Normal 22-30 [facility] Comment on above: Order Comment: Speci men Type: BLOOD SPECIMENOrdering Facility: [facility] Address: [address] [place] [address] Performed By: #### 2 4321-2 ####[facility] HOSPITALNCLIA [id number] [place] [address] [place] Creatinine [Mass/Vol] 0.61 mg/dL Normal 0.58-0.96 [facility] Comment on above: Order Comment: Speci men Type: BLOOD SPECIMENOrdering Facility: [facility] Address: [address] [place] [address] Performed By: #### 2 4321-2 ####[facility] HOSPITALNCLIA [id number] [place] [address] [place] eGFRcr SerPlBld CKD-EPI 2020 99 mL/min/1.73m??? Normal >=60 [facility] Comment on above: Order Comment: Speci men Type: BLOOD SPECIMENOrdering Facility: [facility] Address: [address] [id number] Result Comment: Sana mated Glomerular Filtration Rate [...] actual GFR. Performed By: #### 2 4321-2 ####[facility] [id number] [place] [address] [place] Glucose [Mass/Vol] 123 mg/dL High 74-99 [facility] Comment on above: Order Comment: Umesh baugh Type: BLOOD SPECIMENOrdering Facility: [facility] Address: [address] [place] [address] Result Comment: The [place] Diabetes Association (ADA) provides guidance for cutoff [...] Standards of Medical Care in Diabetes 2016, [place] Diabetes [employer]. Diabetes Care. 2016.39(Suppl 1). Performed By: #### 2 4321-2 ####[facility] [id number] [place] [address] [place] Potassium [Moles/Vol] 3.2 mmol/L Low 3.7-5.1 [facility] Comment on above: Order Comment: Umesh baugh Type: BLOOD SPECIMENOrdering Facility: [facility] Address: [address] [id number] Performed By: #### 2 4321-2 ####[facility] HOSPITALWNCLIA [id number] [place] [address] [place] Sodium [Moles/Vol] 132 mmol/L Low 136-144 [facility] Comment on above: Order Comment: Speci men Type: BLOOD SPECIMENOrdering Facility: [facility] Address: [address] [place] [address] Performed By: #### 2 4321-2 ####[facility]TONLI [id number] [place] [address] [place] Urea nitrogen [Mass/Vol] 12 mg/dL Normal 7-21 [facility] Comment on above: Order Comment: Speci men Type: BLOOD SPECIMENOrdering Facility: [facility] Address: [address] [place] [address] Performed By: #### 2 4321-2 ####[facility] [id number] [place] [address] [place] CBC W Auto Differential pane l (Bld)on 12-02-2024 Basophils (Bld) [#/Vol] 0.05 10*3/uL [facility] Basophils/100 WBC (Bld) 1.0 % [facility] Differential cell count method Nom (Bld) Manual [facility] Eosinophils (Bld) [#/Vol] 0.16 10*3/uL [facility] Eosinophils/100 WBC (Bld) 3.0 % [facility] Erythrocyte distribution width (RBC) [Ratio] 13.2 % 11.5 - 15.0 % [facility] Hematocrit (Bld) [Volume fraction] 27.3 % Low 36.0 - 46.0 % [facility] Hemoglobin (Bld) [Mass/Vol] 9.5 g/dL Low 11.5 - 15.5 g/dL [facility] Interpretation and review of laboratory results Abnormal [facility] Lymphocytes (Bld) [#/Vol] 1.66 10*3/uL [facility] Lymphocytes/100 WBC (Bld) 31.0 % [facility] MCH (RBC) [Entitic mass] 29.5 pg 26.0 - 34.0 pg [facility] MCHC (RBC) [Mass/Vol] 34.8 g/dL 30.5 - 36.0 g/dL [facility] MCV (RBC) [Entitic vol] 84.8 fL 80.0 - 100.0 fL [facility] Monocytes (Bld) [#/Vol] 1.39 10*3/uL High NINF [facility] Monocytes/100 WBC (Bld) 26.0 % [facility] Myelo % 1.0 % [facility] Neutrophils (Bld) [#/Vol] 2.03 10*3/uL [facility] Neutrophils/100 WBC (Bld) 38.0 % [facility] Nucleated RBC (Bld) [#/Vol] NINF [facility] Nucleated RBC/100 WBC (Bld) [Ratio] 0.0 % /100 WBC [facility] Ovalocytes LM Ql (Bld) Few [facility] Platelet mean volume (Bld) [Entitic vol] 8.9 fL Low 9.0 - 12.7 fL [facility] Platelets (Bld) [#/Vol] 385 10*3/uL [facility] Platelets Estimate (Bld) [#/Vol] Adequate [facility] Polychromasia LM Ql (Bld) Slight [facility] RBC (Bld) [#/Vol] 3.22 10*6/uL Low 3.90 - 5.20 m/uL [facility] Red Cell Morph Reviewed: see result s of individual morphologies [facility] WBC (Bld) [#/Vol] 5.35 10*3/uL [facility] WBC Left Shift Ql (Bld) Present [facility] This is an appended report. These results have been appended to a previously verified report. [facility] Basophils (Bld) [#/Vol] 0.05 10*3/uL Normal <0.11 [facility] Comment on above: Order Comment: Speci men Type: BLOOD SPECIMENOrdering Facility: [facility] Address: [address] [place], [place] [address] Performed By: #### 5 7021-8 ####[facility] [id number] [address] LABORATORYCLIA [id number] [place] [address] [place] Basophils/100 WBC (Bld) 1.0 % Normal [facility] Comment on above: Order Comment: Speci men Type: BLOOD SPECIMENOrdering Facility: [facility] Address: [address] [place] [address] Performed By: #### 5 7021-8 ####[facility] MILLTOWNCLIA [id number] [address] LABORATORYCLIA [id number] [place] [address] [place] Differential cell count method Nom (Bld) Manual Normal [facility] Comment on above: Order Comment: Speci men Type: BLOOD SPECIMENOrdering Facility: [facility] Address: [address] [place] [address] Performed By: #### 5 7021-8 ####[facility] MILLTOWNCLIA [id number] [address] LABORATORYCLIA [id number] [place] [address] [place] Eosinophils (Bld) [#/Vol] 0.16 10*3/uL Normal <0.46 [facility] Comment on above: Order Comment: Speci men Type: BLOOD SPECIMENOrdering Facility: [facility] Address: [address] [place] [address] Performed By: #### 5 7021-8 ####[facility] MILLTOWNCLIA [id number] [address] LABORATORYCLIA [id number] [place] [address] [place] Eosinophils/100 WBC (Bld) 3.0 % Normal [facility] Comment on above: Order Comment: Speci men Type: BLOOD SPECIMENOrdering Facility: [facility] Address: [address] [place] [address] Performed By: #### 5 7021-8 ####[facility] LALYWNCLIA [id number] [address] LABORATORYCLIA [id number] [place] [address] [place] Erythrocyte distribution width (RBC) [Ratio] 13.2 % Normal 11.5-15.0 [facility] Comment on above: Order Comment: Speci men Type: BLOOD SPECIMENOrdering Facility: [facility] Address: [address] [place] [address] Performed By: #### 5 7021-8 ####[facility] HOSPITALNCLIA [id number] [address] LABORATORYIA [id number] [place] [address] [place] Hematocrit (Bld) [Volume fraction] 27.3 % Low 36.0-46.0 [facility] Comment on above: Order Comment: Speci men Type: BLOOD SPECIMENOrdering Facility: [facility] Address: [address] [place] [address] Performed By: #### 5 7021-8 ####[facility] HOSPITALWKALIELIA [id number] [address] LABORATORYIA [id number] [place] [address] [place] Hemoglobin (Bld) [Mass/Vol] 9.5 g/dL Low 11.5-15.5 [facility] Comment on above: Order Comment: Speci men Type: BLOOD SPECIMENOrdering Facility: [facility] Address: [address] [place] [address] Performed By: #### 5 7021-8 ####[facility] HOSPITALNCLIA [id number] [address] LABORATORYCLIA [id number] [place] [address] [place] Lymphocytes (Bld) [#/Vol] 1.66 10*3/uL Normal 1.00-4.00 [facility] Comment on above: Order Comment: Speci men Type: BLOOD SPECIMENOrdering Facility: [facility] Address: [address] [place] [address] Performed By: #### 5 7021-8 ####[facility] HOSPITALWKALIELIA [id number] [address] LABORATORYCLIA [id number] [place] [address] [place] Lymphocytes/100 WBC (Bld) 31.0 % Normal [facility] Comment on above: Order Comment: Speci men Type: BLOOD SPECIMENOrdering Facility: [facility] Address: [address] [place] [address] Performed By: #### 5 7021-8 ####[facility] HOSPITALKALIELIA [id number] [address] LABORATORYCLIA [id number] [place] [address] [place] MCH (RBC) [Entitic mass] 29.5 pg Normal 26.0-34.0 [facility] Comment on above: Order Comment: Speci men Type: BLOOD SPECIMENOrdering Facility: [facility] Address: [address] [place] [address] Performed By: #### 5 7021-8 ####[facility] HOSPITALWNCLIA [id number] [address] LABORATORYCLIA [id number] [place] [address] [place] MCHC (RBC) [Mass/Vol] 34.8 g/dL Normal 30.5-36.0 [facility] Comment on above: Order Comment: Speci men Type: BLOOD SPECIMENOrdering Facility: [facility] Address: [address] [place] [address] Performed By: #### 5 7021-8 ####[facility] HOSPITALTOWNCLIA [id number] [address] LABORATORYCLIA [id number] [place] [address] [place] MCV (RBC) [Entitic vol] 84.8 fL Normal 80.0-100.0 [facility] Comment on above: Order Comment: Speci men Type: BLOOD SPECIMENOrdering Facility: [facility] Address: [address] [place] [address] Performed By: #### 5 7021-8 ####[facility] [id number] [address] LABORATORYCLIA [id number] [place] [address] [place] Monocytes (Bld) [#/Vol] 1.39 10*3/uL High <0.87 [facility] Comment on above: Order Comment: Speci men Type: BLOOD SPECIMENOrdering Facility: [facility] Address: [address] [place] [address] Performed By: #### 5 7021-8 ####[facility] DAYTONLIA [id number] [address] LABORATORYCLIA [id number] [place] [address] [place] Monocytes/100 WBC (Bld) 26.0 % Normal [facility] Comment on above: Order Comment: Speci men Type: BLOOD SPECIMENOrdering Facility: [facility] Address: [address] [place] [address] Performed By: #### 5 7021-8 ####[facility] MILLTOWNCLIA [id number] [address] LABORATORYCLIA [id number] [place] [address] [place] MYELO% 1.0 % Normal [facility] Comment on above: Order Comment: Speci men Type: BLOOD SPECIMENOrdering Facility: [facility] Address: [address] [place] [address] Performed By: #### 5 7021-8 ####[facility] MILLTOWNCLIA [id number] [address] LABORATORYCLIA [id number] [address] [place] Neutrophils (Bld) [#/Vol] 2.03 10*3/uL Normal 1.45-7.50 [facility] Comment on above: Order Comment: Speci men Type: BLOOD SPECIMENOrdering Facility: [facility] Address: [address] [place] [address] Performed By: #### 5 7021-8 ####[facility]OSPITALTOWNCLIA [id number] [address] LABORATORYCLIA [id number] [place] [address] [place] Neutrophils/100 WBC (Bld) 38.0 % Normal [facility] Comment on above: Order Comment: Speci men Type: BLOOD SPECIMENOrdering Facility: [facility] Address: [address] [place] [address] Performed By: #### 5 7021-8 ####[facility] MILLTOWNCLIA [id number] [address] LABORATORYCLIA [id number] [place] [address] [place] Nucleated RBC (Bld) [#/Vol] 10*3/uL Normal <0.01 [facility] Comment on above: Order Comment: Speci men Type: BLOOD SPECIMENOrdering Facility: [facility] Address: [address] [place] [address] Performed By: #### 5 7021-8 ####[facility] HOSPITALWRILIA [id number] [address] LABORATORYCLIA [id number] [place] [address] [place] Nucleated RBC/100 WBC (Bld) [Ratio] 0.0 /100 WBC Normal [facility] Comment on above: Order Comment: Speci men Type: BLOOD SPECIMENOrdering Facility: [facility] Address: [address] [place] [address] Performed By: #### 5 7021-8 ####[facility] [id number] [address] LABORATORYCLIA [id number] [address] [place] Ovalocytes LM Ql (Bld) Few Normal [facility] Comment on above: Order Comment: Speci men Type: BLOOD SPECIMENOrdering Facility: [facility] Address: [address] [place] [address] Performed By: #### 5 7021-8 ####[facility] [id number] [address] LABORATORYCLIA [id number] [place] [address] [place] Platelet mean volume (Bld) [Entitic vol] 8.9 fL Low 9.0-12.7 [facility] Comment on above: Order Comment: Speci men Type: BLOOD SPECIMENOrdering Facility: [facility] Address: [address] [place] [address] Performed By: #### 5 7021-8 ####[facility] MILLTOWNCLIA [id number] [address] LABORATORYCLIA [id number] [place] [address] [place] Platelets (Bld) [#/Vol] 385 10*3/uL Normal 150-400 [facility] Comment on above: Order Comment: Speci men Type: BLOOD SPECIMENOrdering Facility: [facility] Address: [address] [place] [address] Performed By: #### 5 7021-8 ####[facility] HOSPITALWNCLIA [id number] [address] LABORATORYCLIA [id number] [place] [address] [place] Platelets Estimate (Bld) [#/Vol] Adequate Normal [facility] Comment on above: Order Comment: Speci men Type: BLOOD SPECIMENOrdering Facility: [facility] Address: [address] [id number] Performed By: #### 5 7021-8 ####[facility] DAYTONLIA [id number] [address] LABORATORYCLIA [id number] [place] [address] [place] Polychromasia LM Ql (Bld) Slight Normal [facility] Comment on above: Order Comment: Speci men Type: BLOOD SPECIMENOrdering Facility: [facility] Address: [address] [place] [address] Performed By: #### 5 7021-8 ####[facility] HOSPITALNCLIA [id number] [address] LABORATORYCLIA [id number] [place] [address] [place] RBC (Bld) [#/Vol] 3.22 10*6/uL Low 3.90-5.20 [facility] Comment on above: Order Comment: Speci men Type: BLOOD SPECIMENOrdering Facility: [facility] Address: [address] [place] [address] Performed By: #### 5 7021-8 ####[facility] HOSPITALWKALIELIA [id number] [address] LABORATORYCLIA [id number] [address] [place] [facility] RED CELL MORPH Reviewed: see result s of individual morphologies Normal [facility] Comment on above: Order Comment: Speci men Type: BLOOD SPECIMENOrdering Facility: [facility] Address: [address] [place] [address] Performed By: #### 5 7021-8 ####[facility] [id number] [address] LABORATORYCLIA [id number] [place] [address] [place] WBC (Bld) [#/Vol] 5.35 10*3/uL Normal 3.70-11.00 [facility] Comment on above: Order Comment: Speci men Type: BLOOD SPECIMENOrdering Facility: [facility] Address: [address] [place] [address] Performed By: #### 5 7021-8 ####[facility] DAYTONLIA [id number] [address] LABORATORYCLIA [id number] [address] WBC Left Shift Ql (Bld) Present Normal [facility] Comment on above: Order Comment: Speci men Type: BLOOD SPECIMENOrdering Facility: [facility] Address: [address] [place] [address] Performed By: #### 5 7021-8 ####[facility]LI [id number] [place], [place] [id number] [place] [address] LABORATORYCLIA [id number] [address] CBC W Auto Differential pane l (Bld)on 11-29-2024 Basophils (Bld) [#/Vol] 0.00 10*3/uL [facility] Basophils/100 WBC (Bld) 0.0 % [facility] Differential cell count method Nom (Bld) Manual [facility] Eosinophils (Bld) [#/Vol] 0.06 10*3/uL [facility] Eosinophils/100 WBC (Bld) 2.0 % [facility] Erythrocyte distribution width (RBC) [Ratio] 13.3 % 11.5 - 15.0 % [facility] Hematocrit (Bld) [Volume fraction] 26.9 % Low 36.0 - 46.0 % [facility] Hemoglobin (Bld) [Mass/Vol] 9.3 g/dL Low 11.5 - 15.5 g/dL [facility] Interpretation and review of laboratory results Abnormal [facility] Lymphocytes (Bld) [#/Vol] 1.62 10*3/uL [facility] Lymphocytes/100 WBC (Bld) 59.0 % [facility] MCH (RBC) [Entitic mass] 29.2 pg 26.0 - 34.0 pg [facility] MCHC (RBC) [Mass/Vol] 34.6 g/dL 30.5 - 36.0 g/dL [facility] MCV (RBC) [Entitic vol] 84.3 fL 80.0 - 100.0 fL [facility] Monocytes (Bld) [#/Vol] 0.66 10*3/uL [facility] Monocytes/100 WBC (Bld) 24.0 % [facility] Neutrophils (Bld) [#/Vol] 0.41 10*3/uL Low [facility] Neutrophils/100 WBC (Bld) 15.0 % [facility] Nucleated RBC (Bld) [#/Vol] [facility] Nucleated RBC/100 WBC (Bld) [Ratio] 0.0 % /100 WBC [facility] Platelet mean volume (Bld) [Entitic vol] 8.6 fL Low 9.0 - 12.7 fL [facility] Platelets (Bld) [#/Vol] 285 10*3/uL [facility] Platelets Estimate (Bld) [#/Vol] Adequate [facility] Polychromasia LM Ql (Bld) Slight [facility] RBC (Bld) [#/Vol] 3.19 10*6/uL Low 3.90 - 5.20 m/uL [facility] Red Cell Morph Reviewed: see result s of individual morphologies [facility] WBC (Bld) [#/Vol] 2.75 10*3/uL Low [facility] This is an appended report. These results have been appended to a previously verified report. [facility] Basophils (Bld) [#/Vol] 0.00 10*3/uL Normal <0.11 [facility] Comment on above: Order Comment: Speci men Type: BLOOD SPECIMENOrdering Facility: [facility] Address: [address] [place] [address] Performed By: #### 5 7021-8 ####[facility] [id number] [address] LABORATORYCLIA [id number] [address] Basophils/100 WBC (Bld) 0.0 % Normal [facility] Comment on above: Order Comment: Speci men Type: BLOOD SPECIMENOrdering Facility: [facility] Address: [address] [place] [address] Performed By: #### 5 7021-8 ####[facility] [id number] [address] LABORATORYCLIA [id number] [address] Differential cell count method Nom (Bld) Manual Normal [facility] Comment on above: Order Comment: Speci men Type: BLOOD SPECIMENOrdering Facility: [facility] Address: [address] [place] [address] Performed By: #### 5 7021-8 ####[facility] MILLTOWNCLIA [id number] [address] LABORATORYCLIA [id number] [place] [address] [place] Eosinophils (Bld) [#/Vol] 0.06 10*3/uL Normal <0.46 [facility] Comment on above: Order Comment: Speci men Type: BLOOD SPECIMENOrdering Facility: [facility] Address: [address] [place] [address] Performed By: #### 5 7021-8 ####[facility] HOSPITALKALIELIA [id number] [address] LABORATORYCLIA [id number] [place] [address] [place] Eosinophils/100 WBC (Bld) 2.0 % Normal [facility] Comment on above: Order Comment: Speci men Type: BLOOD SPECIMENOrdering Facility: [facility] Address: [address] [place] [address] Performed By: #### 5 7021-8 ####[facility] HOSPITALWNCLIA [id number] [address] LABORATORYCLIA [id number] [place] [address] [place] Erythrocyte distribution width (RBC) [Ratio] 13.3 % Normal 11.5-15.0 [facility] Comment on above: Order Comment: Speci men Type: BLOOD SPECIMENOrdering Facility: [facility] Address: [address] [place], [place] [address] Performed By: #### 5 7021-8 ####[facility] MILLTOWNCLIA [id number] 32 [facility] LABORATORYCLIA [id number] [place] [address] [place] Hematocrit (Bld) [Volume fraction] 26.9 % Low 36.0-46.0 [facility] Comment on above: Order Comment: Speci men Type: BLOOD SPECIMENOrdering Facility: [facility] Address: [address] [place] [address] Performed By: #### 5 7021-8 ####[facility] MILLTOWNCLIA [id number] [address] LABORATORYCLIA [id number] [place] [address] [place] Hemoglobin (Bld) [Mass/Vol] 9.3 g/dL Low 11.5-15.5 [facility] Comment on above: Order Comment: Speci men Type: BLOOD SPECIMENOrdering Facility: [facility] Address: [address] [place] [address] Performed By: #### 5 7021-8 ####[facility] MILLTOWNCLIA [id number] [address] LABORATORYCLIA [id number] [place] [address] [place] Lymphocytes (Bld) [#/Vol] 1.62 10*3/uL Normal 1.00-4.00 [facility] Comment on above: Order Comment: Speci men Type: BLOOD SPECIMENOrdering Facility: [facility] Address: [address] [place] [address] Performed By: #### 5 7021-8 ####[facility] MILLTOWNCLIA [id number] [address] LABORATORYCLIA [id number] [place] [address] [place] Lymphocytes/100 WBC (Bld) 59.0 % Normal [facility] Comment on above: Order Comment: Speci men Type: BLOOD SPECIMENOrdering Facility: [facility] Address: [address] [place] [address] Performed By: #### 5 7021-8 ####[facility] HOSPITALNCLIA [id number] [address] LABORATORYCLIA [id number] [address] [place] [facility] MCH (RBC) [Entitic mass] 29.2 pg Normal 26.0-34.0 [facility] Comment on above: Order Comment: Speci men Type: BLOOD SPECIMENOrdering Facility: [facility] Address: [address] [place] [address] Performed By: #### 5 7021-8 ####[facility] [id number] [address] LABORATORYCLIA [id number] [place] [address] [place] [facility] MCHC (RBC) [Mass/Vol] 34.6 g/dL Normal 30.5-36.0 [facility] Comment on above: Order Comment: Speci men Type: BLOOD SPECIMENOrdering Facility: [facility] Address: [address] [place] [address] Performed By: #### 5 7021-8 ####[facility] [id number] [address] LABORATORYCLIA [id number] [place] [address] [place] [facility] MCV (RBC) [Entitic vol] 84.3 fL Normal 80.0-100.0 [facility] Comment on above: Order Comment: Speci men Type: BLOOD SPECIMENOrdering Facility: [facility] Address: [address] [place] [address] Performed By: #### 5 7021-8 ####[facility] MILLTOWNCLIA [id number] [address] LABORATORYCLIA [id number] [place] [address] [place] Monocytes (Bld) [#/Vol] 0.66 10*3/uL Normal <0.87 [facility] Comment on above: Order Comment: Speci men Type: BLOOD SPECIMENOrdering Facility: [facility] Address: [address] [place] [address] Performed By: #### 5 7021-8 ####[facility] MILLTOWNCLIA [id number] [address] LABORATORYCLIA [id number] [place] [address] [place] Monocytes/100 WBC (Bld) 24.0 % Normal [facility] Comment on above: Order Comment: Speci men Type: BLOOD SPECIMENOrdering Facility: [facility] Address: [address] [place] [address] Performed By: #### 5 7021-8 ####[facility] HOSPITALWNCLIA [id number] [address] LABORATORYCLIA [id number] [place] [address] [place] Neutrophils (Bld) [#/Vol] 0.41 10*3/uL Low 1.45-7.50 [facility] Comment on above: Order Comment: Speci men Type: BLOOD SPECIMENOrdering Facility: [facility] Address: [address] [place] [address] Performed By: #### 5 7021-8 ####[facility] MILLTOWNCLIA [id number] [address] LABORATORYCLIA [id number] [address] [facility] Neutrophils/100 WBC (Bld) 15.0 % Normal [facility] Comment on above: Order Comment: Speci men Type: BLOOD SPECIMENOrdering Facility: [facility] Address: [address] [place] [address] Performed By: #### 5 7021-8 ####[facility] HOSPITALWNCLIA [id number] [address] LABORATORYCLIA [id number] [place] [address] [place] Nucleated RBC (Bld) [#/Vol] 10*3/uL Normal <0.01 [facility] Comment on above: Order Comment: Speci men Type: BLOOD SPECIMENOrdering Facility: [facility] Address: [address] [place] [address] Performed By: #### 5 7021-8 ####[facility] [id number] [address] LABORATORYCLIA [id number] [place] [address] [place] Nucleated RBC/100 WBC (Bld) [Ratio] 0.0 /100 WBC Normal [facility] Comment on above: Order Comment: Speci men Type: BLOOD SPECIMENOrdering Facility: [facility] Address: [address] [place] [address] Performed By: #### 5 7021-8 ####[facility] DAYTONLIA [id number] [address] LABORATORYCLIA [id number] [place] [address] [place] Platelet mean volume (Bld) [Entitic vol] 8.6 fL Low 9.0-12.7 [facility] Comment on above: Order Comment: Speci men Type: BLOOD SPECIMENOrdering Facility: [facility] Address: [address] [place] [address] Performed By: #### 5 7021-8 ####[facility] MILLTOWNCLIA [id number] [address] LABORATORYCLIA [id number] [place] [address] [place] Platelets (Bld) [#/Vol] 285 10*3/uL Normal 150-400 [facility] Comment on above: Order Comment: Speci men Type: BLOOD SPECIMENOrdering Facility: [facility] Address: [address] [place] [address] Performed By: #### 5 7021-8 ####[facility] MILLTOWNCLIA [id number] [address] LABORATORYCLIA [id number] [place] [address] [place] Platelets Estimate (Bld) [#/Vol] Adequate Normal [facility] Comment on above: Order Comment: Speci men Type: BLOOD SPECIMENOrdering Facility: [facility] Address: [address] [place] [address] Performed By: #### 5 7021-8 ####[facility] MILLTOWNCLIA [id number] [address] LABORATORYCLIA [id number] [place] [address] [place] Polychromasia LM Ql (Bld) Slight Normal [facility] Comment on above: Order Comment: Speci men Type: BLOOD SPECIMENOrdering Facility: [facility] Address: [address] [id number] Performed By: #### 5 7021-8 ####[facility] MILLTOWNCLIA [id number] [address] LABORATORYCLIA [id number] [place] [address] [place] RBC (Bld) [#/Vol] 3.19 10*6/uL Low 3.90-5.20 [facility] Comment on above: Order Comment: Speci men Type: BLOOD SPECIMENOrdering Facility: [facility] Address: [address] [place] [address] Performed By: #### 5 7021-8 ####[facility] HOSPITALKALIELIA [id number] [address] LABORATORYCLIA [id number] [place] [address] [place] RED CELL MORPH Reviewed: see result s of individual morphologies Normal [facility] Comment on above: Order Comment: Speci men Type: BLOOD SPECIMENOrdering Facility: [facility] Address: [address] [place] [address] Performed By: #### 5 7021-8 ####[facility] [id number] [address] LABORATORYCLIA [id number] [place] [address] [place] WBC (Bld) [#/Vol] 2.75 10*3/uL Low 3.70-11.00 [facility] Comment on above: Order Comment: Speci men Type: BLOOD SPECIMENOrdering Facility: [facility] Address: [address] [place] [address] Performed By: #### 5 7021-8 ####[facility] DAYTONLIA [id number] [address] LABORATORYCLIA [id number] [address] [facility] CEA SerPl-mCncon 11-29-2024 Carcinoembryonic Ag [Mass/Vol] 19.1 ng/mL High <=2.9 [facility] Comment on above: Order Comment: Speci men Type: BLOOD SPECIMENOrdering Facility: [facility] Address: [address] [place] [address] Result Comment: Carc inoembryonic antigen test is used as an aid in monitoring response to treatment or recurrence in patients with established colorectal, breast, lung, prostatic, pancreatic, and ovarian carcinomas. Clinical correlation is required.The Carcinoembryonic antigen test was performed using the [employer] DXI paramagnetic particle chemiluminescent immunoassay method. Results obtained with different assay methods or kits cannot be used interchangeably. Performed By: #### 2 039-6 ####[facility] LABCLIA [id number] [place] [address] [place] CNOVSPon 11-29-2024 CNOVSP Normal [facility] metabolic 2000 panelOrdered By: Merlyn Veloz on 11-29-2024 Albumin [Mass/Vol] 3.5 g/dL Low 3.9 - 4.9 g/dL [facility] ALP [Catalytic activity/Vol] 92 U/L 34 - 123 U/L [facility] ALT [Catalytic activity/Vol] 21 U/L 7 - 38 U/L [facility] Anion gap [Moles/Vol] 11 mmol/L 8 - 15 mmol/L [facility] AST [Catalytic activity/Vol] 27 U/L 13 - 35 U/L [facility] Bilirubin [Mass/Vol] 0.7 mg/dL 0.2 - 1 .3 mg/dL [facility] Calcium [Mass/Vol] 8.6 mg/dL 8.5 - 10. 2 mg/dL [facility] Chloride [Moles/Vol] 92 mmol/L Low 98 - 10 7 mmol/L [facility] CO2 [Moles/Vol] 22 mmol/L 22 - 30 mmol/L [facility] Creatinine [Mass/Vol] 0.65 mg/dL 0.58 - 0.96 mg/dL [facility] GFR/1.73 sq M.predicted among non-blacks MDRD (S/P/Bld) [Vol rate/Area] 98 mL/min/{1.73_m2} - PINF [facility] Comment on above: Estimated Glomerular Filtration [...] not accurately reflect actual GFR. Glucose [Mass/Vol] 125 mg/dL High 74 - 99 mg/dL [facility] Comment on above: The [place] Diab[employer] [place] Association (ADA) provides guidance for [...] Standards of Medical Care in Diabetes 2016, [place] [employer]. Diabetes Care. 2016.39(Suppl 1). Interpretation and review of laboratory results Abnormal [facility] Potassium [Moles/Vol] 2.7 mmol/L Low 3.7 - 5.1 mmol/L [facility] Protein [Mass/Vol] 6.4 g/dL 6.3 - 8.0 g/dL [facility] Sodium [Moles/Vol] 125 mmol/L Low 136 - 144 mmol/L [facility] Urea nitrogen [Mass/Vol] 12 mg/dL 7 - 21 mg/dL [facility] Comprehensive metabolic 2000 panelon 11-29-2024 Albumin [Mass/Vol] 3.5 g/dL Low 3.9-4.9 [facility] Comment on above: Order Comment: Speci men Type: BLOOD SPECIMENOrdering Facility: [facility] Address: [address] [place] [address] Performed By: #### 1 9123-9, 88262-2 ####[facility] HOSPITALFUAD [id number] [place] [address] [place] ALP [Catalytic activity/Vol] 92 U/L Normal 34-123 [facility] Comment on above: Order Comment: Speci men Type: BLOOD SPECIMENOrdering Facility: [facility] Address: [address] [place] [address] Performed By: #### 1 9123-9, 65428-8 ####[facility] LUGO [id number] [place] [address] [place] ALT [Catalytic activity/Vol] 21 U/L Normal 7-38 [facility] Comment on above: Order Comment: Speci men Type: BLOOD SPECIMENOrdering Facility: [facility] Address: [address] [place] [address] Performed By: #### 1 9123-9, 67985-2 ####[facility] LALYCucaNCLIA [id number] [place] [address] [place] Anion gap [Moles/Vol] 11 mmol/L Normal 8-15 [facility] Comment on above: Order Comment: Speci men Type: BLOOD SPECIMENOrdering Facility: [facility] Address: [address] [place] [address] Performed By: #### 1 9123-9, 03064-0 ####[facility] LALYKALIELIA [id number] [place] [address] [place] AST [Catalytic activity/Vol] 27 U/L Normal 13-35 [facility] Comment on above: Order Comment: Speci men Type: BLOOD SPECIMENOrdering Facility: [facility] Address: [address] [place] [address] Performed By: #### 1 9123-9, 42388-0 ####[facility] BISHNUALLOYNCLIA [id number] [place] [address] [place] Bilirubin [Mass/Vol] 0.7 mg/dL Normal 0.2-1.3 [facility] Comment on above: Order Comment: Speci men Type: BLOOD SPECIMENOrdering Facility: [facility] Address: [address] [place] [address] Performed By: #### 1 9123-9, 96019-5 ####[facility] MILLTOWNCLIA [id number] [place] [address] [place] Calcium [Mass/Vol] 8.6 mg/dL Normal 8.5-10.2 [facility] Comment on above: Order Comment: Speci men Type: BLOOD SPECIMENOrdering Facility: [facility] Address: [address] [place] [address] Performed By: #### 1 9123-9, 68874-0 ####[facility] MILLTOWNCLIA [id number] [place] [address] [place] Chloride [Moles/Vol] 92 mmol/L Low 98-107 [facility] Comment on above: Order Comment: Speci men Type: BLOOD SPECIMENOrdering Facility: [facility] Address: [address] [place] [address] Performed By: #### 1 9123-9, 89246-4 ####[facility] MILLJUSTINWNCLIA [id number] [place] [address] [place] CO2 [Moles/Vol] 22 mmol/L Normal 22-30 [facility] Comment on above: Order Comment: Speci men Type: BLOOD SPECIMENOrdering Facility: [facility] Address: [address] [place] [address] Performed By: #### 1 9123-9, 14611-0 ####[facility] MILLTOWNCLIA [id number] [place] [address] [place] Creatinine [Mass/Vol] 0.65 mg/dL Normal 0.58-0.96 [facility] Comment on above: Order Comment: Speci men Type: BLOOD SPECIMENOrdering Facility: [facility] Address: [address] [place] [address] Performed By: #### 1 9123-9, 59993-8 ####[facility] MILLTOWKALIELIA [id number] [place] [address] [place] eGFRcr SerPlBld CKD-EPI 2020 98 mL/min/1.73m??? Normal >=60 [facility] Comment on above: Order Comment: Umesh baugh Type: BLOOD SPECIMENOrdering Facility: [facility] Address: [address] [place] [address] Result Comment: Sana mated Glomerular Filtration Rate [...] actual GFR. Performed By: #### 1 9123-9, 24502-5 ####[facility] [id number] [place] [address] [place] Glucose [Mass/Vol] 125 mg/dL High 74-99 [facility] Comment on above: Order Comment: Umesh baugh Type: BLOOD SPECIMENOrdering Facility: [facility] Address: [address] [place] [address] Result Comment: The [place] Diabetes Association (ADA) provides guidance for cutoff [...] Standards of Medical Care in Diabetes 2016, [place] Diabetes Association. Diabetes Care. 2016.39(Suppl 1). Performed By: #### 1 9123-9, 59479-2 ####[facility]TONLI [id number] [place] [address] [place] Potassium [Moles/Vol] 2.7 mmol/L Low 3.7-5.1 [facility] Comment on above: Order Comment: Speci men Type: BLOOD SPECIMENOrdering Facility: [facility] Address: [address] [place] [address] Performed By: #### 1 9123-9, 11069-2 ####[facility] MILLMATTHEW [id number] [place] [address] [place] Protein [Mass/Vol] 6.4 g/dL Normal 6.3-8.0 [facility] Comment on above: Order Comment: Speci men Type: BLOOD SPECIMENOrdering Facility: [facility] Address: [address] [place] [address] Performed By: #### 1 9123-9, 31769-5 ####[facility]ITALMATTHEW [id number] [place] [address] [place] Sodium [Moles/Vol] 125 mmol/L Low 136-144 [facility] Comment on above: Order Comment: Speci men Type: BLOOD SPECIMENOrdering Facility: [facility] Address: [address] [place] [address] Performed By: #### 1 9123-9, 15949-2 ####[facility] [id number] [place] [address] [place] Urea nitrogen [Mass/Vol] 12 mg/dL Normal 7-21 [facility] Comment on above: Order Comment: Speci men Type: BLOOD SPECIMENOrdering Facility: [facility] Address: [address] [place] [address] Performed By: #### 1 9123-9, 46312-5 ####[facility] HOSPITALNCLIA [id number] [place] [address] [place] MAGNESIUMon 11-29-2024 Magnesium [Mass/Vol] 1.5 mg/dL Low 1.7 - 2 .3 mg/dL [facility] Magnesium SerPl-mCncon 11-29 Magnesium [Mass/Vol] 1.5 mg/dL Low 1.7-2.3 [facility] Comment on above: Order Comment: Speci men Type: BLOOD SPECIMENOrdering Facility: [facility] Address: [address] [place] [address] Performed By: #### 1 9123-9, 81506-6 ####[facility] [id number] [place] [address] [place] Magnesium [Mass/Vol]on 11-29 Interpretation and review of laboratory results Abnormal [facility] CNPNon 11-28-2024 CNPN Normal [facility] CNPNon 11-27-2024 CNPN Normal [facility] CNPNon 11-26-2024 CNPN Normal [facility] REFERRAL FOR ADDITIONAL BIOM ARKER AND MOLECULAR TESTINGon 11-26-2024 REFERRAL FOR ADDITIONAL BIOMARKER AND MOLECULAR TESTING Normal [facility] Comment on above: Order Comment: Speci men Type: TISSUE SPECIMENOrdering Facility: [facility] Address: [address] [place] [address] Result Comment: Requ est has been received for evaluation and the results will be issued separately. Performed By: #### A PMOL ####[facility] [id number] [address] [place] Absolute lymphocyte countOrd ered By: Demarcus Gauthier on 11-25-2024 Lymphocytes Auto (Unsp spec) [#/Vol] 0.93 10*3/uL 0.83-4.51 [facility] Absolute neutrophil countOrd ered By: Demarcus Gauthier on 11-25-2024 Neutrophils (Bld) [#/Vol] 3.1 10*3/uL 2.0-7.7 [facility] Anion gap in Serum or Plasma Ordered By: Demarcus Gauthier on 11-25-2024 Anion gap [Moles/Vol] 14 mmol/L 5-15 [facility] Automated lymphocyte count a s percentage of total leukocytesOrdered By: Demarcus Gauthier on 11-25-2024 Lymphocytes/100 WBC Auto (Unsp spec) 19.4 % 19- [facility] BUN/creatinine ratioOrdered By: Demarcus Gauthier on 11-25-2024 Urea nitrogen/Creatinine [Mass ratio] 26.8 mg/mg High 10-20 [facility] Basophil percentageOrdered B y: Demarcus Gauthier on 11-25-2024 Basophils/100 WBC (Bld) 0.8 % 0-1 [facility] Bilirubin Test strip Ql (U)O rdered By: Demarcus Gauthier on 11-25-2024 Bilirubin Ql (U) Negative Negative [facility] Bilirubin, totalOrdered By: Demarcus Gauthier on 11-25-2024 Bilirubin [Mass/Vol] 0.39 mg/dL 0.00-1.30 [facility] CBC W/Diff, Automatedon Anisocytosis Ql (Bld) 1+ Normal [facility] Comment on above: Performed By: #### L 501.2450, L500.4050, L100.0100 ####[facility] [address] [place], [address] HYPOCHROMASIA 1+ Normal [facility] Comment on above: Performed By: #### L 501.2450, L500.4050, L100.0100 ####[facility] [address] [place], [address] PLT EST ADEQUATE Normal ADEQ [facility] Comment on above: Performed By: #### L 501.2450, L500.4050, L100.0100 ####[facility] [address] [place], [address] Carbon dioxide, total [Moles /volume] in Central venous bloodOrdered By: Demarcus Gauthier on 11-25-2024 CO2 [Moles/Vol] 23.7 mmol/L 21.0-32.0 [facility] Chloride assayOrdered By: Chris Gauthier on 11-25-2024 Chloride [Moles/Vol] 96 mmol/L Low 98-108 [facility] Comprehensive Metabolic Prof ilon 11-25-2024 Albumin [Mass/Vol] 3.6 g/dL Normal 3.4-4.8 [facility] Comment on above: Performed By: #### L 501.2450, L500.4050, L100.0100 ####[facility] [address] [place], [address] Albumin/Globulin [Mass ratio] 1.2 {ratio} Normal 0.9-2.4 [facility] Comment on above: Performed By: #### L 501.2450, L500.4050, L100.0100 ####[facility] [address] [place], [address] ALK PHOS 58 U/L Normal 35-104 [facility] Comment on above: Performed By: #### L 501.2450, L500.4050, L100.0100 ####[facility] [address] [place], [address] ALT [Catalytic activity/Vol] 10 U/L Normal <=34 [facility] Comment on above: Performed By: #### L 501.2450, L500.4050, L100.0100 ####[facility] [address] [place], [address] AST [Catalytic activity/Vol] 20 U/L Normal <=31 [facility] Comment on above: Performed By: #### L 501.2450, L500.4050, L100.0100 ####[facility] [address] [place], [address] Bilirubin [Mass/Vol] 0.39 mg/dL Normal 0.00-1.30 [facility] Comment on above: Performed By: #### L 501.2450, L500.4050, L100.0100 ####[facility] [address] [place], [address] BUN/CRE 26.8 RATIO High 10-20 [facility] Comment on above: Performed By: #### L 501.2450, L500.4050, L100.0100 ####[facility] [address] [place], [address] Calcium [Mass/Vol] 8.7 mg/dL Normal 7.6-11.0 [facility] Comment on above: Performed By: #### L 501.2450, L500.4050, L100.0100 ####[facility] [address] [place], [address] Chloride [Moles/Vol] 96 mmol/L Low 98-108 [facility] Comment on above: Performed By: #### L 501.2450, L500.4050, L100.0100 ####[facility] [address] [place], [address] CO2 [Moles/Vol] 23.7 mmol/L Normal 21.0-32.0 [facility] Comment on above: Performed By: #### L 501.2450, L500.4050, L100.0100 ####[facility] [address] [place], [address] Creatinine [Mass/Vol] 0.62 mg/dL Low 0.70-1.20 [facility] Comment on above: Performed By: #### L 501.2450, L500.4050, L100.0100 ####[facility] [address] [place], [address] ECRCL 43.17 ml/min Low 50-250 [facility] Comment on above: Performed By: #### L 501.2450, L500.4050, L100.0100 ####[facility] [address] [place], [address] GAP 14 Normal 5-15 [facility] Comment on above: Performed By: #### L 501.2450, L500.4050, L100.0100 ####[facility] [address] [place], [address] GFR/1.73 sq M.predicted among non-blacks MDRD (S/P/Bld) [Vol rate/Area] 99 mL/min/{1.73_m2} Normal >60 [facility] Comment on above: Result Comment: mL/m in/1.73m2 CKD-EPI Creatinine Equation (2020) Performed By: #### L 501.2450, L500.4050, L100.0100 ####[facility] [address] [place], [address] Globulin (S) [Mass/Vol] 3.1 g/dL Normal 2.2-4.2 [facility] Comment on above: Performed By: #### L 501.2450, L500.4050, L100.0100 ####[facility] [address] [place], [address] Glucose [Mass/Vol] 148 mg/dL High 70-99 [facility] Comment on above: Performed By: #### L 501.2450, L500.4050, L100.0100 ####[facility] [address] [place], [address] Potassium [Moles/Vol] 3.2 mmol/L Low 3.3-5.1 [facility] Comment on above: Performed By: #### L 501.2450, L500.4050, L100.0100 ####[facility] [address] [place], [address] Sodium [Moles/Vol] 134 mmol/L Normal 133-145 [facility] Comment on above: Performed By: #### L 501.2450, L500.4050, L100.0100 ####[facility] [address] [place], [address] T PROT 6.7 g/dL Normal 5.9-8.4 [facility] Comment on above: Performed By: #### L 501.2450, L500.4050, L100.0100 ####[facility] [address] [place], [address] Urea nitrogen [Mass/Vol] 17 mg/dL Normal 4-19 [facility] Comment on above: Performed By: #### L 501.2450, L500.4050, L100.0100 ####[facility] [address] [place], [address] Emergency Department Summary on 11-25-2024 Emergency Department Summary Normal [facility] Eosinophil percentageOrdered By: Demarcus Gauthier on 11-25-2024 Eosinophils/100 WBC (Bld) 2.1 % 0-5 [facility] Erythrocyte distribution wid th ratioOrdered By: Demarcus Gauthier on 11-25-2024 Erythrocyte distribution width (RBC) [Ratio] 13.2 % 11.6-14.6 [facility] Erythrocyte distribution wid th standard deviationOrdered By: Demarcus Gauthier on 11-25-2024 Erythrocyte distribution width (RBC) [Ratio] 42.5 fl 35.1-43.9 [facility] Glomerular filtration rate ( GFR) estimation/1.73 sq m using serum, plasma, or whole bOrdered By: Demarcus Gauthier on 11-25-2024 GFR/1.73 sq M.predicted among non-blacks MDRD (S/P/Bld) [Vol rate/Area] 99 mL/min/{1.73_m2} >60 [facility] Comment on above: mL/min/1.73m2 CKD-EP I Creatinine Equation (2020) Hematocrit Auto (Bld) [Volum e fraction]Ordered By: Demarcus Gauthier on 11-25-2024 Hematocrit (Bld) [Volume fraction] 28.4 % Low 37-47 [facility] Hemoglobin measurementOrdere d By: Demarcus Gauthier on 11-25-2024 Hemoglobin (Bld) [Mass/Vol] 9.7 g/dL Low 12.0-15.0 [facility] Hypochromatic red blood cell detectionOrdered By: Demarcus Gauthier on 09-01-2025 Hypochromia Ql (Bld) 1+ [facility] Immature granulocytes/100 WB C Auto (Bld)Ordered By: Demarcus Gauthier on 11-25-2024 Immature granulocytes/100 WBC (Bld) 0.600 % 0.0-0.9 [facility] Comment on above: IG% - Immature Granu locytes (promyelocytes, myelocytes and metamyelocytes) > 1% indicates that a LEFT SHIFT is Present. Ketones Test strip Ql (U)Ord ered By: Demarcus Gauthier on 11-25-2024 Ketones Ql (U) Negative Negative [facility] Laboratory - Chemistry and C hemistry - challengeOrdered By: Demarcus Gauthier on 11-25-2024 AST [Catalytic activity/Vol] 20 U/L <32 [facility] - Hematology and Cell countsOrdered By: Demarcus Gauthier on 11-25-2024 Anisocytosis Ql (Bld) 1+ [facility] Lipaseon 11-25-2024 Lipase [Catalytic activity/Vol] 62 U/L Normal 13-75 [facility] Comment on above: Result Comment: Plea se note:LIPASE revised reference range effective 22.New Lipase methodology. Expected to produce lower valuesthan the previous assay method.NEW Reference Range: 13 - 75 U/L Performed By: #### L 501.2450, L500.4050, L100.0100 ####[facility] [address] [place], [address] Lipase measurementOrdered By : Demarcus Gauthier on 11-25-2024 Lipase [Catalytic activity/Vol] 62 U/L 13-75 [facility] Comment on above: Please note:LIPASE r evised reference range effective 22. New Lipase methodology. Expected to produce lower values than the previous assay method. NEW Reference Range: 13 - 75 U/L MCV (mean corpuscular volume ) determinationOrdered By: Demarcus Gauthier on 11-25-2024 MCV (RBC) [Entitic vol] 87.4 fL 81-99 [facility] Mean corpuscular hemoglobin (MCH) determinationOrdered By: Demarcus Gauthier on 11-25-2024 MCH (RBC) [Entitic mass] 29.8 pg 27.0-32.0 [facility] Mean corpuscular hemoglobin concentration (MCHC) determinationOrdered By: Deamrcus Gauthier on 11-25-2024 MCHC (RBC) [Mass/Vol] 34.2 g/dL 32-36 [facility] Mean platelet volume determi nationOrdered By: Demarcus Gauthier on 11-25-2024 Platelet mean volume (Bld) [Entitic vol] 9.6 fL 6.2-12.0 [facility] Microscopic analysis of urin e for red blood cells (RBC)Ordered By: Demarcus Gauthier on 11-25-2024 Microscopic analysis of urine for red blood cells (RBC) 0 SEEN /hpf 0-5 [facility] Monocyte percentageOrdered B y: Demarcus Gauthier on 11-25-2024 Monocytes/100 WBC (Bld) 12.7 % High 0-10 [facility] Mucus LM Ql (Urine sed)Order ed By: Demarcus Gauthier on 11-25-2024 Mucus Ql (Urine sed) 1+ /hpf [facility] Neutrophil percentageOrdered By: Demarcus Gauthier on 11-25-2024 Neutrophils/100 WBC (Bld) 64.4 % 47-70 [facility] Nitrite Test strip Ql (U)Ord ered By: Demarcus Gauthier on 11-25-2024 Nitrite Ql (U) Negative Negative [facility] No Panel InformationOrdered By: Demarcus Gauthier on 11-25-2024 1+ [facility] 20 U/L <32 [facility] Nucleated red blood cell per centageOrdered By: Demarcus Gauthier on 11-25-2024 Nucleated RBC/100 WBC (Bld) [Ratio] 0 % 0-5 [facility] Platelet countOrdered By: Chris Gauthier on 11-25-2024 Platelets (Bld) [#/Vol] 220 10*3/uL 150-450 [facility] Platelet estimateOrdered By: Demarcus Gauthier on 11-25-2024 Platelets LM Ql (Bld) ADEQUATE ADEQ [facility] Potassium measurement (mass/ volume)Ordered By: Demarcus Gauthier on 11-25-2024 Potassium (Unsp spec) [Mass/Vol] 3.2 mmol/L Low 3.3-5.1 [facility] Protein Test strip Ql (U)Ord ered By: Demarcus Gauthier on 11-25-2024 Protein Ql (U) 30 mg/dl High Negative [facility] RBC Auto (Bld) [#/Vol]Ordere d By: Demarcus Gauthier on 11-25-2024 RBC (Bld) [#/Vol] 3.25 10*6/uL Low 4.2-5.4 [facility] Serum creatinine measurement (mass/volume)Ordered By: Demarcus Gauthier on 11-25-2024 Creatinine [Mass/Vol] 0.62 mg/dL Low 0.70-1.20 [facility] Serum globulin measurementOr dered By: Demarcus Gauthier on 11-25-2024 Globulin (S) [Mass/Vol] 3.1 g/dL 2.2-4.2 [facility] Serum glucose measurement (m ass/volume)Ordered By: Demarcus Gauthier on 11-25-2024 Glucose [Mass/Vol] 148 mg/dL High 70-99 [facility] Serum or plasma alanine ramirez otransferase (ALT) measurementOrdered By: Demarcus Gauthier on 11-25-2024 ALT [Catalytic activity/Vol] 10 U/L <35 [facility] Serum or plasma albumin renetta urement (mass/volume)Ordered By: Demarcus Gauthier on 11-25-2024 Albumin [Mass/Vol] 3.6 g/dL 3.4-4.8 [facility] Serum or plasma albumin/glob ulin mass ratioOrdered By: Demarcus Gauthier on 11-25-2024 Albumin/Globulin [Mass ratio] 1.2 {ratio} 0.9-2.4 [facility] Serum or plasma alkaline marquez sphatase measurementOrdered By: Demarcus Gauthier on 11-25-2024 ALP [Catalytic activity/Vol] 58 U/L 35-104 [facility] Serum or plasma calcium renetta urement (mass/volume)Ordered By: Demarcus Gauthier on 11-25-2024 Calcium [Mass/Vol] 8.7 mg/dL 7.6-11.0 [facility] Serum or plasma urea nitroge n measurement (mass/volume)Ordered By: Demarcus Gauthier on 11-25-2024 Urea nitrogen [Mass/Vol] 17 mg/dL 4-19 [facility] Sodium levelOrdered By: Demarcus Gautiher on 11-25-2024 Sodium [Moles/Vol] 134 mmol/L 133-145 [facility] Squamous epithelial cells de tection in urine sediment by light microscopyOrdered By: Demarcus Gauthier on 11-25-2024 Epithelial cells.squamous LM Ql (Urine sed) 0-5 SEEN /hpf 5-10 [facility] Total proteinOrdered By: Lisandro Gauthier on 11-25-2024 Protein [Mass/Vol] 6.7 g/dL 5.9-8.4 [facility] Urinalysis, Completeon 11-25 Mucus Ql (Urine sed) 1+ /hpf Normal [facility] Comment on above: Order Comment: CLEAN CATCH Performed By: #### L 400.0001 ####[facility] [address] [place], [address] BACTERIA 1+ /hpf Normal None Seen [facility] Comment on above: Order Comment: CLEAN CATCH Performed By: #### L 400.0001 ####[facility] [address] [place], [address] EPI,SQUAMOUS 0-5 SEEN Normal 5-10 [facility] Comment on above: Order Comment: CLEAN CATCH Performed By: #### L 400.0001 ####[facility] [address] [place], [address] RBC 0 SEEN Normal 0-5 [facility] Comment on above: Order Comment: CLEAN CATCH Performed By: #### L 400.0001 ####[facility] [address] [place], [address] WBC 0 SEEN Normal 0-5 [facility] Comment on above: Order Comment: CLEAN CATCH Performed By: #### L 400.0001 ####[facility] [address] [place], [address] Urine clarityOrdered By: Lisandro Gauthier on 11-25-2024 Clarity (U) Clear Clear [facility] Urine color determinationOrd ered By: Demarcus Gauthier on 11-25-2024 Color (U) Yellow Yellow [facility] Urine glucose detectionOrder ed By: Demarcus Gauthier on 11-25-2024 Glucose Ql (U) Normal mg/dl Normal [facility] Urine leukocyte esterase det ection by dipstickOrdered By: Demarcus Gauthier on 11-25-2024 Leukocyte esterase Test strip Ql (U) Negative Negative [facility] Urine pHOrdered By: Demarcus gage on 11-25-2024 pH (U) 6.0 [pH] 5.0 - 8.0 [facility] Urine sediment bacteria coun t by microscopy (number/high power field)Ordered By: Demarcus Gauthier on 11-25-2024 Bacteria LM.HPF (Urine sed) [#/Area] 1 /[HPF] None Seen [facility] Urine specific gravity measu rementOrdered By: Demarcus Gauthier on 11-25-2024 Specific gravity (U) [Rel density] 1.015 1.002-1.03 0 [facility] Urine urobilinogen measureme ntOrdered By: Demarcus Gauthier on 11-25-2024 Urobilinogen Ql (U) Normal mg/dl Normal [facility] White blood cell (WBC) count Ordered By: Demarcus Gauthier on 11-25-2024 WBC (Bld) [#/Vol] 4.8 10*3/uL 4.4-11.0 [facility] White blood cell countOrdere d By: Demarcus Gauthier on 11-25-2024 White blood cell count 0 SEEN /hpf 0-5 [facility] CBC panel Auto (Bld)on 11-23 Erythrocyte distribution width (RBC) [Ratio] 13.7 % Normal 11.5-15.0 [facility] Comment on above: Order Comment: Speci men Type: BLOOD SPECIMEN Ordering Facility: [facility] Address: [address] [place] [address] Performed By: #### 5 8410-2 #### [facility] CLIA [id number] [address] [place] [address] [place] Hematocrit (Bld) [Volume fraction] 27.9 % Low 36.0-46.0 [facility] Comment on above: Order Comment: Speci men Type: BLOOD SPECIMEN Ordering Facility: [facility] Address: [address] [place] [address] Performed By: #### 5 8410-2 #### [facility] CLIA [id number] [address] Hemoglobin (Bld) [Mass/Vol] 9.3 g/dL Low 11.5-15.5 [facility] Comment on above: Order Comment: Speci men Type: BLOOD SPECIMEN Ordering Facility: [facility] Address: [address] [place] [address] Performed By: #### 5 8410-2 #### [facility] CLIA [id number] [address] MCH (RBC) [Entitic mass] 29.4 pg Normal 26.0-34.0 [facility] Comment on above: Order Comment: Speci men Type: BLOOD SPECIMEN Ordering Facility: [facility] Address: [address] [place] [address] Performed By: #### 5 8410-2 #### [facility] CLIA [id number] [address] MCHC (RBC) [Mass/Vol] 33.3 g/dL Normal 30.5-36.0 [facility] Comment on above: Order Comment: Speci men Type: BLOOD SPECIMEN Ordering Facility: [facility] Address: [address] [place] [address] Performed By: #### 5 8410-2 #### [facility] CLIA [id number] [address] MCV (RBC) [Entitic vol] 88.3 fL Normal 80.0-100.0 [facility] Comment on above: Order Comment: Speci men Type: BLOOD SPECIMEN Ordering Facility: [facility] Address: [address] [place] [address] Performed By: #### 5 8410-2 #### [facility] CLIA [id number] [address] Nucleated RBC (Bld) [#/Vol] 10*3/uL Normal <0.01 [facility] Comment on above: Order Comment: Speci men Type: BLOOD SPECIMEN Ordering Facility: [facility] Address: [address] [place] [address] Performed By: #### 5 8410-2 #### [facility] CLIA [id number] [address] Platelet mean volume (Bld) [Entitic vol] 9.6 fL Normal 9.0-12.7 [facility] Comment on above: Order Comment: Speci men Type: BLOOD SPECIMEN Ordering Facility: [facility] Address: [address] [place] [address] Performed By: #### 5 8410-2 #### [facility] CLIA [id number] [address] [place] Platelets (Bld) [#/Vol] 166 10*3/uL Normal 150-400 [facility] Comment on above: Order Comment: Speci men Type: BLOOD SPECIMEN Ordering Facility: [facility] Address: [address] [place] [address] Performed By: #### 5 8410-2 #### [facility] CLIA [id number] [address] RBC (Bld) [#/Vol] 3.16 10*6/uL Low 3.90-5.20 [facility] Comment on above: Order Comment: Speci men Type: BLOOD SPECIMEN Ordering Facility: [facility] Address: [address] [place] [address] Performed By: #### 5 8410-2 #### [facility] CLIA [id number] [address] [place] WBC (Bld) [#/Vol] 2.61 10*3/uL Low 3.70-11.00 [facility] Comment on above: Order Comment: Speci men Type: BLOOD SPECIMEN Ordering Facility: [facility] Address: [address] [place] [address] Performed By: #### 5 8410-2 #### [facility] CLIA [id number] [address] CNDSon 11-23-2024 CNDS HNO ID: [id number] Author: PATEL GANDARA MD Service: Hospital Medicine [...] reported STEMI and reported Vfib arrest at [facility], with initial complaint of chest pain. Recently [...] cardiogenic shock and sent to CVICU at [facility]. Taken immediately to [employer] with LHC and RHC performed which revealed [...] patient voiced understanding of these risks. Per staff pharmacist, patient left the unit at 2039 via wheelchair. V-fib arrest status post ACLS with reported ST elevation [place] at outside hospital after being started on [...] results. FOLLOW-UP APPOINTMENTS ALREADY SCHEDULED WITH A [facility] PROVIDER: Future Appointments Date Time Provider Department Center 11/29/2024 11:45 AM Wstr, [place] [facility] [place] 11/29/2024 12:10 PM Jimmie Poole MD [facility] [place] 12/02/2024 9:00 AM TREATMENT RM 5 [facility] [place] 12/04/2024 4:00 PM Wstr, [place] [facility] [place] 12/06/2024 2:00 PM Stacie Souza APRN.A[facility]ATIC CENTRE MANAGER [facility] None 12/13/2024 2:00 PM Wstr, [place] [facility] [place] 12/13/2024 2:20 PM Jimmie Poole MD [facility] [place] 12/16/2024 8:00 AM TREATMENT RM 2 [facility] [place] 12/18/2024 4:00 PM Wstr, [place] [facility] (more content not included)... Normal [facility] NURSING PROGon 11-23-2024 NURSING PROG HNO ID: [id number] Author: STEPHON YE, REAL Service: Nursing Author Type: Registered Nurse [...] APRN notified of patient leaving AMA. Normal [facility] NURSING PROG HNO ID: [id number] Author: WALDEMAR LOPES, REAL Service: Nursing Author Type: Registered Nurse Type: Nursing Progress Note Filed: 11/23/2024 19:43 Note Text: Patient requesting to leave AMA. Discussed situation with Shanice Bacon NP, [facility] physicians. Shanice spoke with the attending [facility] physician Dr. Patel Gandara. Per Dr. Gandara, patient to sign AMA form. No prescriptions to be called in. Normal [facility] Renal function 2000 panelon 11-23-2024 Albumin [Mass/Vol] 3.4 g/dL Low 3.9-4.9 [facility] Comment on above: Order Comment: Speci men Type: URINE SPECIMEN Ordering Facility: [facility] Address: [address] [place] [address] Performed By: #### 2 4356-8 #### [facility] CLIA [id number] 1 [place] [address] [place] Anion gap [Moles/Vol] 11 mmol/L Normal 8-15 [facility] Comment on above: Order Comment: Speci men Type: URINE SPECIMEN Ordering Facility: [facility] Address: [address] [place] [address] Performed By: #### 2 4356-8 #### [facility] CLIA [id number] [address] [place] [address] [place] Calcium [Mass/Vol] 8.4 mg/dL Low 8.5-10.2 [facility] Comment on above: Order Comment: Speci men Type: URINE SPECIMEN Ordering Facility: [facility] Address: [address] [place] [address] Performed By: #### 2 4356-8 #### [facility] CLIA [id number] [address] [place] [address] [place] Chloride [Moles/Vol] 97 mmol/L Low 98-107 [facility] Comment on above: Order Comment: Speci men Type: URINE SPECIMEN Ordering Facility: [facility] Address: [address] [place] [address] Performed By: #### 2 4356-8 #### [facility] CLIA [id number] [address] [place] [address] [place] CO2 [Moles/Vol] 26 mmol/L Normal 22-30 [facility] Comment on above: Order Comment: Speci men Type: URINE SPECIMEN Ordering Facility: [facility] Address: [address] [place] [address] Performed By: #### 2 4356-8 #### [facility] CLIA [id number] [address] [place] [address] [place] Creatinine [Mass/Vol] 0.60 mg/dL Normal 0.58-0.96 [facility] Comment on above: Order Comment: Speci men Type: URINE SPECIMEN Ordering Facility: [facility] Address: [address] [place] [address] Performed By: #### 2 4356-8 #### [facility] CLIA [id number] [address] [place] [address] [place] eGFRcr SerPlBld CKD-EPI 2020 100 mL/min/1.73m??? Normal >=60 [facility] Comment on above: Order Comment: Umesh baugh Type: URINE SPECIMEN Ordering Facility: [facility] Address: [address] [place] [address] Result Comment: Sana mated Glomerular Filtration Rate [...] reflect actual GFR. Performed By: #### 2 4356-8 #### [facility] CLIA [id number] [address] [place] [address] [place] Glucose [Mass/Vol] 102 mg/dL High 74-99 [facility] Comment on above: Order Comment: Umesh baugh Type: URINE SPECIMEN Ordering Facility: [facility] Address: [address] [place] [address] Result Comment: The [place] [employer] Association (ADA) provides guidance for cutoff [...] Standards of Medical Care in Diabetes 2016, [place] [employer]. Diabetes Care. 2016.39(Suppl 1). Performed By: #### 2 4356-8 #### [facility] CLIA [id number] [address] [place] [address] [place] Phosphate [Mass/Vol] 3.0 mg/dL Normal 2.7-4.8 [facility] Comment on above: Order Comment: Umesh baugh Type: URINE SPECIMEN Ordering Facility: [facility] Address: [address] [place] [address] Performed By: #### 2 4356-8 #### [facility] CLIA [id number] [address] [place] [address] [place] Potassium [Moles/Vol] 3.9 mmol/L Normal 3.7-5.1 [facility] Comment on above: Order Comment: Speci men Type: URINE SPECIMEN Ordering Facility: [facility] Address: [address] [place] [address] Performed By: #### 2 4356-8 #### [facility] CLIA [id number] [address] [place] [address] [place] Sodium [Moles/Vol] 134 mmol/L Low 136-144 [facility] Comment on above: Order Comment: Speci men Type: URINE SPECIMEN Ordering Facility: [facility] Address: [address] [place] [address] Performed By: #### 2 4356-8 #### [facility] CLIA [id number] [address] [place] [address] [place] Urea nitrogen [Mass/Vol] 12 mg/dL Normal 7-21 [facility] Comment on above: Order Comment: Speci men Type: URINE SPECIMEN Ordering Facility: [facility] Address: [address] [place] [address] Performed By: #### 2 4356-8 #### [facility] CLIA [id number] [address] [place] [address] [place] Basic metabolic 2000 panelon 11-22-2024 Anion gap [Moles/Vol] 10 mmol/L Normal 8-15 [facility] Comment on above: Order Comment: Speci men Type: URINE SPECIMEN Ordering Facility: [facility] Address: [address] [place] [address] Performed By: #### 2 4356-8 #### [facility] CLIA [id number] [address] [place] Calcium [Mass/Vol] 8.5 mg/dL Normal 8.5-10.2 [facility] Comment on above: Order Comment: Speci men Type: URINE SPECIMEN Ordering Facility: [facility] Address: [address] [place] [address] Performed By: #### 2 4356-8 #### [facility] CLIA [id number] [address] [place] Chloride [Moles/Vol] 105 mmol/L Normal 98-107 [facility] Comment on above: Order Comment: Speci men Type: URINE SPECIMEN Ordering Facility: [facility] Address: [address] [place] [address] Performed By: #### 2 4356-8 #### [facility] CLIA [id number] [address] [place] CO2 [Moles/Vol] 24 mmol/L Normal 22-30 [facility] Comment on above: Order Comment: Speci men Type: URINE SPECIMEN Ordering Facility: [facility] Address: [address] [place] [address] Performed By: #### 2 4356-8 #### [facility] CLIA [id number] [address] [facility] Creatinine [Mass/Vol] 0.66 mg/dL Normal 0.58-0.96 [facility] Comment on above: Order Comment: Speci men Type: URINE SPECIMEN Ordering Facility: [facility] Address: [address] [place] [address] Performed By: #### 2 4356-8 #### [facility] CLIA [id number] [address] [place] eGFRcr SerPlBld CKD-EPI 2020 97 mL/min/1.73m??? Normal >=60 [facility] Comment on above: Order Comment: Speci men Type: URINE SPECIMEN Ordering Facility: [facility] Address: [address] [place] [address] Result Comment: Sana mated Glomerular Filtration Rate [...] reflect actual GFR. Performed By: #### 2 4356-8 #### [facility] CLIA [id number] [address] [place] [address] [place] Glucose [Mass/Vol] 109 mg/dL High 74-99 [facility] Comment on above: Order Comment: Speci men Type: URINE SPECIMEN Ordering Facility: [facility] Address: [address] [place] [address] Result Comment: The [place] Diabetes Association (ADA) provides guidance for cutoff [...] Standards of Medical Care in Diabetes 2016, [place] [employer]. Diabetes Care. 2016.39(Suppl 1). Performed By: #### 2 4356-8 #### [facility] CLIA [id number] [address] [place] [address] [place] Potassium [Moles/Vol] 3.9 mmol/L Normal 3.7-5.1 [facility] Comment on above: Order Comment: Speci men Type: URINE SPECIMEN Ordering Facility: [facility] Address: [address] [place] [address] Performed By: #### 2 4356-8 #### [facility] CLIA [id number] [address] [place] [address] [place] Sodium [Moles/Vol] 139 mmol/L Normal 136-144 [facility] Comment on above: Order Comment: Speci men Type: URINE SPECIMEN Ordering Facility: [facility] Address: [address] [place] [address] Performed By: #### 2 4356-8 #### [facility] CLIA [id number] [address] [place] [facility] Urea nitrogen [Mass/Vol] 12 mg/dL Normal 7-21 [facility] Comment on above: Order Comment: Speci men Type: URINE SPECIMEN Ordering Facility: [facility] Address: [address] [place] [address] Performed By: #### 2 4356-8 #### [facility] CLIA [id number] [address] [facility] CBC panel Auto (Bld)on 11-22 Erythrocyte distribution width (RBC) [Ratio] 14.4 % Normal 11.5-15.0 [facility] Comment on above: Order Comment: Speci men Type: BLOOD SPECIMEN Ordering Facility: [facility] Address: [address] [place] [address] Performed By: #### 5 8410-2 #### [facility] CLIA [id number] [address] [facility] Hematocrit (Bld) [Volume fraction] 26.9 % Low 36.0-46.0 [facility] Comment on above: Order Comment: Speci men Type: BLOOD SPECIMEN Ordering Facility: [facility] Address: [address] [place] [address] Performed By: #### 5 8410-2 #### [facility] CLIA [id number] [address] [place] [facility] Hemoglobin (Bld) [Mass/Vol] 9.2 g/dL Low 11.5-15.5 [facility] Comment on above: Order Comment: Speci men Type: BLOOD SPECIMEN Ordering Facility: [facility] Address: [address] [place] [address] Performed By: #### 5 8410-2 #### [facility] CLIA [id number] [address] MCH (RBC) [Entitic mass] 30.0 pg Normal 26.0-34.0 [facility] Comment on above: Order Comment: Speci men Type: BLOOD SPECIMEN Ordering Facility: [facility] Address: [address] [place] [address] Performed By: #### 5 8410-2 #### [facility] CLIA [id number] [address] MCHC (RBC) [Mass/Vol] 34.2 g/dL Normal 30.5-36.0 [facility] Comment on above: Order Comment: Speci men Type: BLOOD SPECIMEN Ordering Facility: [facility] Address: [address] [place] [address] Performed By: #### 5 8410-2 #### [facility] CLIA [id number] [address] MCV (RBC) [Entitic vol] 87.6 fL Normal 80.0-100.0 [facility] Comment on above: Order Comment: Speci men Type: BLOOD SPECIMEN Ordering Facility: [facility] Address: [address] [place] [address] Performed By: #### 5 8410-2 #### [facility] CLIA [id number] [address] [facility] Nucleated RBC (Bld) [#/Vol] 10*3/uL Normal <0.01 [facility] Comment on above: Order Comment: Speci men Type: BLOOD SPECIMEN Ordering Facility: [facility] Address: [address] [place] [address] Performed By: #### 5 8410-2 #### [facility] CLIA [id number] [address] [place] Platelet mean volume (Bld) [Entitic vol] 9.2 fL Normal 9.0-12.7 [facility] Comment on above: Order Comment: Speci men Type: BLOOD SPECIMEN Ordering Facility: [facility] Address: [address] [place] [address] Performed By: #### 5 8410-2 #### [facility] CLIA [id number] [address] [place] Platelets (Bld) [#/Vol] 166 10*3/uL Normal 150-400 [facility] Comment on above: Order Comment: Speci men Type: BLOOD SPECIMEN Ordering Facility: [facility] Address: [address] [place] [address] Performed By: #### 5 8410-2 #### [facility] CLIA [id number] [address] [facility] RBC (Bld) [#/Vol] 3.07 10*6/uL Low 3.90-5.20 [facility] Comment on above: Order Comment: Speci men Type: BLOOD SPECIMEN Ordering Facility: [facility] Address: [address] [place] [address] Performed By: #### 5 8410-2 #### [facility] CLIA [id number] [address] [facility] WBC (Bld) [#/Vol] 2.24 10*3/uL Low 3.70-11.00 [facility] Comment on above: Order Comment: Speci men Type: BLOOD SPECIMEN Ordering Facility: [facility] Address: [address] [place] [address] Performed By: #### 5 8410-2 #### [facility] CLIA [id number] [address] CONSULTon 11-22-2024 CONSULT HNO ID: [id number] Author: KAL HUNTER MD Service: Cardiovascular Medicine [...] reported Vfib arrest. Per chart review from [facility], patient arrived at the ED and complained [...] She was responsive therefore held off intubation. line o scribe operator after this showed transient atrial fibrillation with apparent blood pressure dropping into the 70s systolic. Cardio genic shock was suspected and dopamine drip was ordered. Packing Machine Pilot Can Router also recommended 180 mg of Brilinta, heparin drip was started at outside hospital. Lowest documented blood pressure at the outside hospital was 79/49. No EKG or telemetry strips were provided by outside hospital. In the ED patient received 500 cc LVB, K 40mEq, aspirin, brilinta, nitro drip, fentanyl once, dopamine, and heparin drip. Patient was taken immediately to [facility] where LHC and RHC were done. PAST [...] tablet Take (more content not included)... Normal [facility] Magnesium SerPl-mCncon 11-22 Magnesium [Mass/Vol] 1.7 mg/dL Normal 1.7-2.3 [facility] Comment on above: Order Comment: Speci men Type: BLOOD SPECIMEN Ordering Facility: [facility] Address: [address] [place] [address] Performed By: #### H STNT #### [facility] CLIA [id number] 1 [place] [id number] [place] NURSING PROGon 11-22-2024 NURSING PROG HNO ID: [id number] Author: KAIT NUNN RN Service: Nursing Author Type: Registered Nurse Type: Nursing Progress Note Filed: 11/22/2024 19:37 Note Text: Transfer Note: PATIENT NAME: Lakesha Koch Patient Location: [place] [address] [address]0 1 Room: [place] [address] Patient transferred out to room/unit 3241 in stable condition. Actions taken: Report given/called to 4111. Normal [facility] NUTRITIONon 11-22-2024 NUTRITION HNO ID: [id number] Author: V[address]EC[address] RE[address] Service: Nutrition Therapy [...] Vfib arrest. Patient is a transfer from [facility]. Recent C.difficile infection. S/p LHC and [...] at MD visit 11/18/24.) Estimated kilocalorie needs: 2292-6527 Calorie Calculation Method: 30-35 kcals/kg Estimated protein [...] November 22, 2024 TIME: 11:18 AM Normal [facility] Phosphate SerPl-mCncon 11-22 Phosphate [Mass/Vol] 2.0 mg/dL Low 2.7-4.8 [facility] Comment on above: Order Comment: Speci men Type: BLOOD SPECIMEN Ordering Facility: [facility] Address: [address] [place] [address] Performed By: #### H STNT #### [facility] CLIA [id number] [address] ALLIED HEALTHon 11-21-2024 ALLIED HEALTH HNO ID: [id number] Author: ?, ?, ? Service: Infection Prevention [...] Test(s): Positive for C. difficile toxin per [place] ED encounter note 11/08/2024. SIGNATURE: Arleth Stafford PATIENT NAME: Lakesha Koch DATE: November 21, 2024 TIME: 12:43 PM PAGER/CONTACT #: Infection Prevention, [id number] Infection Prevention after hours/weekend pager: [phone] Normal [facility] BRIEF OP NOTon 11-21-2024 BRIEF OP NOT HNO ID: [id number] Author: KY GONZALEZ MD Service: Cardiovascular Medicine [...] Recommend: Continue conservative management Ky Niño MD Physician'S Aide of Internal Medicine [facility] Section of Interventional Cardiology [facility] of Structural Heart Disease [place] [address] Facsimile: [phone] Email: [email or web address] Normal [facility] Bacteria Bld Culton 11-22-19 25 Bacteria identified Cx Nom (Bld) CULTURE, BLOOD: No growth 5 days Normal [facility] Comment on above: Performed By: #### 6 00-7 ####[facility] [id number] [place] [address] [place] Bacteria identified Cx Nom (Bld) CULTURE, BLOOD: No growth 5 days Normal [facility] Comment on above: Performed By: #### 6 00-7 ####[facility] [id number] [place] [address] [place] Basic metabolic 2000 panelon 11-21-2024 Anion gap [Moles/Vol] 10 mmol/L Normal 8-15 [facility] Comment on above: Order Comment: Speci men Type: URINE SPECIMEN Ordering Facility: [facility] Address: [address] [place] [address] Performed By: #### 2 4356-8 #### [facility] CLIA [id number] [address] [place] Calcium [Mass/Vol] 8.4 mg/dL Low 8.5-10.2 [facility] Comment on above: Order Comment: Speci men Type: URINE SPECIMEN Ordering Facility: [facility] Address: [address] [place] [address] Performed By: #### 2 4356-8 #### [facility] CLIA [id number] [address] [place] Chloride [Moles/Vol] 108 mmol/L High 98-107 [facility] Comment on above: Order Comment: Speci men Type: URINE SPECIMEN Ordering Facility: [facility] Address: [address] [place] [address] Performed By: #### 2 4356-8 #### [facility] CLIA [id number] [address] [facility] CO2 [Moles/Vol] 22 mmol/L Normal 22-30 [facility] Comment on above: Order Comment: Speci men Type: URINE SPECIMEN Ordering Facility: [facility] Address: [address] [place] [address] Performed By: #### 2 4356-8 #### [facility] CLIA [id number] [address] [place] Creatinine [Mass/Vol] 0.67 mg/dL Normal 0.58-0.96 [facility] Comment on above: Order Comment: Speci men Type: URINE SPECIMEN Ordering Facility: [facility] Address: [address] [place] [address] Performed By: #### 2 4356-8 #### [facility] CLIA [id number] [address] [place] eGFRcr SerPlBld CKD-EPI 2020 97 mL/min/1.73m??? Normal >=60 [facility] Comment on above: Order Comment: Speci men Type: URINE SPECIMEN Ordering Facility: [facility] Address: [address] [place] [address] Result Comment: Sana mated Glomerular Filtration Rate [...] reflect actual GFR. Performed By: #### 2 4356-8 #### [facility] CLIA [id number] [address] [place] [address] [place] Glucose [Mass/Vol] 113 mg/dL High 74-99 [facility] Comment on above: Order Comment: [place] men Type: URINE SPECIMEN Ordering Facility: [facility] Address: [address] [place] [address] Result Comment: The [place] Diabetes Association (ADA) provides guidance for cutoff [...] Standards of Medical Care in Diabetes 2016, [place] [employer] Association. Diabetes Care. 2016.39(Suppl 1). Performed By: #### 2 4356-8 #### [facility] CLIA [id number] 1 [place] [address] [place] Potassium [Moles/Vol] 4.4 mmol/L Normal 3.7-5.1 [facility] Comment on above: Order Comment: Speci men Type: URINE SPECIMEN Ordering Facility: [facility] Address: [address] [place] [id number] Performed By: #### 2 4356-8 #### [facility] CLIA [id number] 1 [place] [address] [place] Sodium [Moles/Vol] 140 mmol/L Normal 136-144 [facility] Comment on above: Order Comment: Speci men Type: URINE SPECIMEN Ordering Facility: [facility] Address: [address] [place] [address] Performed By: #### 2 4356-8 #### [facility] CLIA [id number] [address] Urea nitrogen [Mass/Vol] 15 mg/dL Normal 7-21 [facility] Comment on above: Order Comment: Speci men Type: URINE SPECIMEN Ordering Facility: [facility] Address: [address] [place] [address] Performed By: #### 2 4356-8 #### [facility] CLIA [id number] [address] [facility] CARD CATH DIAGNOSTICon 11-21 CARD CATH DIAGNOSTIC Site Id: [facility] Lab #: DEFAULT Study Date: 11/21/2024 Start Time: End Time: Name Duty Ky Niño MD PROC MD 1 Chevy Cortez RN PROC SCRUB 1 Juan Jose Carballo RN PROC CIRC 1 Lisbeth Whitten RN PROC RECORD 1 + + PATIENT INFORMATION + + Name: [facility] 1960 Age: 64 years Gender: Height: 63 in / 160 cm Weight: 85.00 lb / 38.56 kg BMI: 15.06 kg/m BSA: 1.34 m + --+ CLINICAL HISTORY/INDICATIONS + --+ Appropriate Use Criteria (Diag): STEMI elevation myocardial infarction or suspected STEMI elevation myocardial infarction; AUC score = 9. Procedural Status: Emergency CAD Presentation: STEMI Angina Classification (within 2 weeks): CCS IV No Heart Failure Clinical History: Patient presents as a STEMI transfer from [facility] and V-fib arrest in the emergency room. Brought to the [facility] emergently for heart catheterization. + + DIAGNOSTIC FINDINGS + + Coronary Anatomy: Right Dominant Injection Site(s): Coronary Artery LMT: _ The LMT is normal. LAD: _ The LAD is normal. LCX: _ The Circumflex is normal. RAMUS: _ Ramus Status: Not Applicable. RCA: _ RCA is normal. Left Ventriculogram:Left ventriculogram showed lateral wall motion abnormality with an ejection fraction of 50%. + + IMPRESSION/PLAN + + Impression:Normal coronary angiogram No pulmonary hypertension Borderline low cardiac output Mildly elevated right-sided pressures Recommended Treatment: Medical Therapy. Plan: Continue conservative management + + HEMODYNAMICS - XPER + + + +------+-- ---+-------+-----+------+-- ----+ Measurement Name Sys Olga End Olga Mean A Wave V Wave + +------+-- ---+-------+-----+------+-- ----+ AO 108.00 54.00 74.00 + +------+-- ---+-------+-----+------+-- ----+ LV 105.00 5.00 23.00 + +------+-- ---+-------+-----+------+-- ----+ LV 94.00 -1.00 30.00 + +------+-- ---+-------+-----+------+-- ----+ LVp 96.00 2.00 29.00 + +------+-- ---+-------+-----+------+-- ----+ AOp 97.00 52.00 74.00 + +------+-- ---+-------+-----+------+-- ----+ AO 89.00 56.00 74.00 + +------+-- ---+-------+-----+------+-- ----+ AO 91.00 59.00 73.00 + +------+-- ---+-------+-----+------+-- ----+ PA 35.00 20.00 26.00 + +------+-- ---+-------+-----+------+-- ----+ PW 18.00 24.00 18.00 + +------+-- ---+-------+-----+------+-- ----+ LV 105.00 10.00 26.00 + +------+-- ---+-------+-----+------+-- ----+ AO 93.00 62.00 76.00 + +------+-- ---+-------+-----+------+-- ----+ RA 10.00 13.00 9.00 + +------+-- ---+-------+-----+------+-- ----+ AO 90.00 58.00 71.00 + +------+-- ---+-------+-----+------+-- ----+ Oximetry: + +----+ +-----+---+--- --+ Time Site O2 Saturation O2 PO2 HB + +----+ +-----+---+--- --+ 11/21/2024 2:34:24 AM AO 97.00 14.64 11.10 + +----+ +-----+---+--- --+ 11/21/2024 2:34:24 AM PA 6.00 0.91 11.10 + +----+ +-----+---+--- --+ 11/21/2024 2:34:24 AM AO 97.00 14.64 11.10 + +----+ +-----+---+--- --+ 11/21/2024 2:34:24 AM PA 6.00 0.91 11.10 + +----+ +-----+---+--- --+ Cardiac Outputs: +--------+-----+ JASWANT SV 11.60 +--------+-----+ JASWANT CO 1.30 +--------+-----+ JASWANT CI 0.97 +--------+-----+ JASWANT HR +--------+-----+ MAN CO +--------+-----+ MAN CI +--------+-----+ TD SV 27.70 +--------+-----+ TD CO 3.10 +--------+-----+ TD CI 2.31 +--------+-----+ ANGIO SV +--------+-----+ ANGIO CO +--------+-----+ ANGIO CI +--------+-----+ + --------+ ADVERSE OUTCOME(s)/COMPLICATION(s) + --------+ None + ----+ PROCEDURAL & TECHNICAL DETAILS + ----+ Date Time Description 11/21/2024 12:00:00 AM Left Heart Cath 11/21/2024 12:00:00 AM Right Heart Cath 11/21/2024 12:00:00 AM LEFT VENTRICULAR ANGIOGRAPHY *MEDICAL HISTORY* CAD Presentation: STEMI Angina Classification (within 2 weeks): CCS IV No Heart Failure Family History of CAD: No Dyslipidemia: Yes Hypertension: Yes Dialysis: Currently not on dialysis Left Ventricle EF: No Relevent EF within 6 Months. LVEF at Disch (more content not included)... Normal [facility] CBC W Auto Differential pane l (Bld)on 11-21-2024 Basophils (Bld) [#/Vol] 10*3/uL Normal <0.11 [facility] Comment on above: Order Comment: Speci men Type: URINE SPECIMEN Ordering Facility: [facility] Address: [address] [place] [address] Performed By: #### 2 4356-8 #### [facility] CLIA [id number] [address] [facility] Basophils/100 WBC (Bld) 0.4 % Normal [facility] Comment on above: Order Comment: Abdou[place] men Type: URINE SPECIMEN Ordering Facility: [facility] Address: [address] [place] [address] Performed By: #### 2 4356-8 #### [facility] CLIA [id number] [address] [place] Differential cell count method Nom (Bld) Auto Normal [facility] Comment on above: Order Comment: Speci men Type: URINE SPECIMEN Ordering Facility: [facility] Address: [address] [place] [address] Performed By: #### 2 4356-8 #### [facility] CLIA [id number] 1 [place] [address] [place] Eosinophils (Bld) [#/Vol] 10*3/uL Normal <0.46 [facility] Comment on above: Order Comment: Speci men Type: URINE SPECIMEN Ordering Facility: [facility] Address: [address] [place] [address] Performed By: #### 2 4356-8 #### [facility] CLIA [id number] [address] [place] Eosinophils/100 WBC (Bld) 0.0 % Normal [facility] Comment on above: Order Comment: Speci men Type: URINE SPECIMEN Ordering Facility: [facility] Address: [address] [place] [address] Performed By: #### 2 4356-8 #### [facility] CLIA [id number] 1 [place] [address] [place] Immature granulocytes (Bld) [#/Vol] 10*3/uL Normal <0.10 [facility] Comment on above: Order Comment: Speci men Type: URINE SPECIMEN Ordering Facility: [facility] Address: [address] [place] [address] Performed By: #### 2 4356-8 #### [facility] CLIA [id number] [address] [place] Immature granulocytes/100 WBC (Bld) 0.4 % Normal [facility] Comment on above: Order Comment: Speci men Type: URINE SPECIMEN Ordering Facility: [facility] Address: [address] [place] [address] Performed By: #### 2 4356-8 #### [facility] CLIA [id number] 1 [place] [address] [place] Lymphocytes (Bld) [#/Vol] 0.75 10*3/uL Low 1.00-4.00 [facility] Comment on above: Order Comment: Speci men Type: URINE SPECIMEN Ordering Facility: [facility] Address: [address] [place] [address] Performed By: #### 2 4356-8 #### [facility] CLIA [id number] [address] [place] Lymphocytes/100 WBC (Bld) 16.1 % Normal [facility] Comment on above: Order Comment: Speci men Type: URINE SPECIMEN Ordering Facility: [facility] Address: [address] [place] [address] Performed By: #### 2 4356-8 #### [facility] CLIA [id number] [address] [place] Monocytes (Bld) [#/Vol] 0.38 10*3/uL Normal <0.87 [facility] Comment on above: Order Comment: Speci men Type: URINE SPECIMEN Ordering Facility: [facility] Address: [address] [place] [address] Performed By: #### 2 4356-8 #### [facility] CLIA [id number] [address] [place] Monocytes/100 WBC (Bld) 8.2 % Normal [facility] Comment on above: Order Comment: Speci men Type: URINE SPECIMEN Ordering Facility: [facility] Address: [address] [place] [address] Performed By: #### 2 4356-8 #### [facility] CLIA [id number] [address] [place] Neutrophils (Bld) [#/Vol] 3.48 10*3/uL Normal 1.45-7.50 [facility] Comment on above: Order Comment: Speci men Type: URINE SPECIMEN Ordering Facility: [facility] Address: [address] [place] [address] Performed By: #### 2 4356-8 #### [facility] CLIA [id number] [address] [place] Neutrophils/100 WBC (Bld) 74.9 % Normal [facility] Comment on above: Order Comment: Speci men Type: URINE SPECIMEN Ordering Facility: [facility] Address: [address] [place] [address] Performed By: #### 2 4356-8 #### [facility] CLIA [id number] 1 [place] [address] [place] CBC W/Diff, Automatedon 10-26 Absolute Neut Normal 2.0-7.7 [facility] Comment on above: Result Comment: Canc elled via OM: Order cancelled - Patient discharged Performed By: #### L 100.0100 ####[facility] [address] [place], [address] HCT Normal 37-47 [facility] Comment on above: Result Comment: Canc elled via OM: Order cancelled - Patient discharged Performed By: #### L 100.0100 ####[facility] [address] [place], [address] HGB Normal 12.0-15.0 [facility] Comment on above: Result Comment: Canc elled via OM: Order cancelled - Patient discharged Performed By: #### L 100.0100 ####[facility] [address] [place], [address] MCH Normal 27.0-32.0 [facility] Comment on above: Result Comment: Canc elled via OM: Order cancelled - Patient discharged Performed By: #### L 100.0100 ####[facility] [address] [place], [address] MCHC Normal 32-36 [facility] Comment on above: Result Comment: Canc elled via OM: Order cancelled - Patient discharged Performed By: #### L 100.0100 ####[facility] [address] [place], [address] MCV Normal 81-99 [facility] Comment on above: Result Comment: Canc elled via OM: Order cancelled - Patient discharged Performed By: #### L 100.0100 ####[facility] [address] [place], [address] NEUT% Normal 47-70 [facility] Comment on above: Result Comment: Canc elled via OM: Order cancelled - Patient discharged Performed By: #### L 100.0100 ####[facility] [address] [place], [address] PLT Normal 150-450 [facility] Comment on above: Result Comment: Canc elled via OM: Order cancelled - Patient discharged Performed By: #### L 100.0100 ####[facility] [address] [place], [address] RBC Normal 4.2-5.4 [facility] Comment on above: Result Comment: Canc elled via OM: Order cancelled - Patient discharged Performed By: #### L 100.0100 ####[facility] [address] [place], [address] RDW CV Normal 11.6-14.6 [facility] Comment on above: Result Comment: Canc elled via OM: Order cancelled - Patient discharged Performed By: #### L 100.0100 ####[facility] [address] [place], [address] RDW SD Normal 35.1-43.9 [facility] Comment on above: Result Comment: Canc elled via OM: Order cancelled - Patient discharged Performed By: #### L 100.0100 ####[facility] [address] [place], [address] WBC Normal 4.4-11.0 [facility] Comment on above: Result Comment: Canc elled via OM: Order cancelled - Patient discharged Performed By: #### L 100.0100 ####[facility] [address] [place], [address] CBC panel Auto (Bld)on 11-21 Erythrocyte distribution width (RBC) [Ratio] 14.6 % Normal 11.5-15.0 [facility] Comment on above: Order Comment: Speci men Type: URINE SPECIMEN Ordering Facility: [facility] Address: [address] [place] [address] Performed By: #### 2 4356-8 #### [facility] CLIA [id number] [address] [facility] Hematocrit (Bld) [Volume fraction] 30.3 % Low 36.0-46.0 [facility] Comment on above: Order Comment: Speci men Type: URINE SPECIMEN Ordering Facility: [facility] Address: [address] [place] [address] Performed By: #### 2 4356-8 #### [facility] CLIA [id number] [address] [facility] Hemoglobin (Bld) [Mass/Vol] 10.6 g/dL Low 11.5-15.5 [facility] Comment on above: Order Comment: Speci men Type: URINE SPECIMEN Ordering Facility[facility] Address: [address] [place] [address] Performed By: #### 2 4356-8 #### [facility] [facility] CLIA [id number] [address] [facility] MCH (RBC) [Entitic mass] 31.0 pg Normal 26.0-34.0 [facility] Comment on above: Order Comment: Speci men Type: URINE SPECIMEN Ordering Facility: [facility] Address: [address] [place] [address] Performed By: #### 2 4356-8 #### [facility] CLIA [id number] [address] [place] MCHC (RBC) [Mass/Vol] 35.0 g/dL Normal 30.5-36.0 [facility] Comment on above: Order Comment: Speci men Type: URINE SPECIMEN Ordering Facility: [facility] Address: [address] [place] [address] Performed By: #### 2 4356-8 #### [facility] CLIA [id number] [address] MCV (RBC) [Entitic vol] 88.6 fL Normal 80.0-100.0 [facility] Comment on above: Order Comment: Speci men Type: URINE SPECIMEN Ordering Facility: [facility] Address: [address] [place] [address] Performed By: #### 2 4356-8 #### [facility] CLIA [id number] [address] Nucleated RBC (Bld) [#/Vol] 10*3/uL Normal <0.01 [facility] Comment on above: Order Comment: Speci men Type: URINE SPECIMEN Ordering Facility: [facility] Address: [address] [place] [address] Performed By: #### 2 4356-8 #### [facility] CLIA [id number] [address] STATES [facility] Platelet mean volume (Bld) [Entitic vol] 9.1 fL Normal 9.0-12.7 [facility] Comment on above: Order Comment: Speci men Type: URINE SPECIMEN Ordering Facility: [facility] Address: [address] [place] [address] Performed By: #### 2 4356-8 #### [facility] CLIA [id number] [address] Platelets (Bld) [#/Vol] 204 10*3/uL Normal 150-400 [facility] Comment on above: Order Comment: Speci men Type: URINE SPECIMEN Ordering Facility: [facility] Address: [address] [place] [address] Performed By: #### 2 4356-8 #### [facility] CLIA [id number] [address] [place] RBC (Bld) [#/Vol] 3.42 10*6/uL Low 3.90-5.20 [facility] Comment on above: Order Comment: Speci men Type: URINE SPECIMEN Ordering Facility: [facility] Address: [address] [place] [address] Performed By: #### 2 4356-8 #### [facility] CLIA [id number] [address] [place] WBC (Bld) [#/Vol] 4.62 10*3/uL Normal 3.70-11.00 [facility] Comment on above: Order Comment: Speci men Type: URINE SPECIMEN Ordering Facility: [facility] Address: [address] [place] [address] Performed By: #### 2 4356-8 #### [facility] CLIA [id number] [address] [place] CNCRITCRon 11-21-2024 CNCRITCR Normal [facility] CNPNon 11-21-2024 CNPN Normal [facility] CRP SerPl-mCncon 11-21-2024 CRP [Mass/Vol] 2.6 mg/dL High <0.9 [facility] Comment on above: Order Comment: Speci men Type: URINE SPECIMEN Ordering Facility: [facility] Address: [address] [place] [address] Performed By: #### 2 4356-8 #### [facility] CLIA [id number] [address] [place] [facility] Comprehensive metabolic 2000 panelon 11-21-2024 Albumin [Mass/Vol] 3.6 g/dL Low 3.9-4.9 [facility] Comment on above: Order Comment: Speci men Type: BLOOD SPECIMEN Ordering Facility: [facility] Address: [address] [place] [address] Performed By: #### 2 4323-8, 2777-1, 28856-0, LIPNF #### [facility] CLIA [id number] 1 [place] [address] [place] ALP [Catalytic activity/Vol] 62 U/L Normal 34-123 [facility] Comment on above: Order Comment: Speci men Type: BLOOD SPECIMEN Ordering Facility: [facility] Address: [address] [place] [address] Performed By: #### 2 4323-8, 2776-03, , LIPNF #### [facility] CLIA [id number] [address] [place] ALT With P-5'-P [Catalytic activity/Vol] 15 U/L Normal 7-38 [facility] Comment on above: Order Comment: Speci men Type: BLOOD SPECIMEN Ordering Facility: [facility] Address: [address] [place] [address] Performed By: #### 2 4323-8, 2776-03, , LIPNF #### [facility] CLIA [id number] [address] [place] [address] [place] [facility] Anion gap [Moles/Vol] 15 mmol/L Normal 8-15 [facility] Comment on above: Order Comment: Speci men Type: BLOOD SPECIMEN Ordering Facility: [facility] Address: [address] [place] [address] Performed By: #### 2 4323-8, 2776-03, , LIPNF #### [facility] CLIA [id number] [address] [place] [address] [place] [facility] AST With P-5'-P [Catalytic activity/Vol] 32 U/L Normal 13-35 [facility] Comment on above: Order Comment: Speci men Type: BLOOD SPECIMEN Ordering Facility: [facility] Address: [address] [place] [address] Performed By: #### 2 4323-8, 2776-03, , LIPNF #### [facility] CLIA [id number] [address] [place] Bilirubin [Mass/Vol] 0.4 mg/dL Normal 0.2-1.3 [facility] Comment on above: Order Comment: Speci men Type: BLOOD SPECIMEN Ordering Facility: [facility] Address: [address] [place], [place] [address] Performed By: #### 2 4323-8, 7-1, , LIPNF #### [facility] CLIA [id number] 1 [place] [address] [place] Calcium [Mass/Vol] 7.9 mg/dL Low 8.5-10.2 [facility] Comment on above: Order Comment: Speci men Type: BLOOD SPECIMEN Ordering Facility: [facility] Address: [address] [place] [address] Performed By: #### 2 4323-8, 2776-, , LIPNF #### [facility] CLIA [id number] 1 [place] [address] [place] Chloride [Moles/Vol] 105 mmol/L Normal 98-107 [facility] Comment on above: Order Comment: Speci men Type: BLOOD SPECIMEN Ordering Facility: [facility] Address: [address] [place] [address] Performed By: #### 2 4323-8, 2776-03, , LIPNF #### [facility] CLIA [id number] 1 [place] [address] [place] CO2 [Moles/Vol] 17 mmol/L Low 22-30 [facility] Comment on above: Order Comment: Speci men Type: BLOOD SPECIMEN Ordering Facility: [facility] Address: [address] [place] [address] Performed By: #### 2 4323-8, 2776-03, , LIPNF #### [facility] CLIA [id number] 1 [place] [address] [place] Creatinine [Mass/Vol] 0.70 mg/dL Normal 0.58-0.96 [facility] Comment on above: Order Comment: Speci men Type: BLOOD SPECIMEN Ordering Facility: [facility] Address: [address] [place] [address] Performed By: #### 2 4323-8, 277-1, 10115-9, LIPNF #### [facility] CLIA [id number] 1 [place] [address] [place] eGFRcr SerPlBld CKD-EPI 2020 96 mL/min/1.73m??? Normal >=60 [facility] Comment on above: Order Comment: Umesh baugh Type: BLOOD SPECIMEN Ordering Facility: [facility] Address: [address] [place] [address] Result Comment: Sana mated Glomerular Filtration Rate [...] actual GFR. Performed By: #### 2 4323-8, 2777-1, , LIPNF #### [facility] CLIA [id number] 1 [place] [address] [place] Glucose [Mass/Vol] 196 mg/dL High 74-99 [facility] Comment on above: Order Comment: Umesh baugh Type: BLOOD SPECIMEN Ordering Facility: [facility] Address: [address] [place] [address] Result Comment: The [place] Diabetes Association (ADA) provides guidance for cutoff [...] Standards of Medical Care in Diabetes 2016, [place] Diabetes Association. Diabetes Care. 2016.39(Suppl 1). Performed By: #### 2 4323-8, 2777-1, 53795-3, LIPNF #### [facility] CLIA [id number] 1 [place] [address] [place] Potassium [Moles/Vol] 3.1 mmol/L Low 3.7-5.1 [facility] Comment on above: Order Comment: Speci men Type: BLOOD SPECIMEN Ordering Facility: [facility] Address: [address] [place] [address] Performed By: #### 2 4323-8, 2776-03, , LIPNF #### [facility] CLIA [id number] [address] [place] Protein [Mass/Vol] 6.1 g/dL Low 6.3-8.0 [facility] Comment on above: Order Comment: Speci men Type: BLOOD SPECIMEN Ordering Facility: [facility] Address: [address] [place] [address] Performed By: #### 2 4323-8, 2776-03, , LIPNF #### [facility] CLIA [id number] [address] [place] [address] [place] [facility] Sodium [Moles/Vol] 137 mmol/L Normal 136-144 [facility] Comment on above: Order Comment: Speci men Type: BLOOD SPECIMEN Ordering Facility: [facility] Address: [address] [place] [address] Performed By: #### 2 4323-8, 2776-03, , LIPNF #### [facility] CLIA [id number] [address] [place] Urea nitrogen [Mass/Vol] 22 mg/dL High 7-21 [facility] Comment on above: Order Comment: Speci men Type: BLOOD SPECIMEN Ordering Facility: [facility] Address: [address] [place] [address] Performed By: #### 2 4323-8, 2776-03, , LIPNF #### [facility] CLIA [id number] [address] [place] ECG COMPLETEon 11-21-2024 ECG COMPLETE Ventricular Rate : 1 14 BPM Atrial Rate : 114 BPM P-R Interval : 112 ms QRS Duration : 96 ms Q-T Interval : 438 ms QTC Calculation(Bazett) : 603 ms Calculated P [place] : 78 degrees Calculated R [place] : 23 degrees Calculated T [place] : 95 degrees SINUS TACHYCARDIA T WAVE ABNORMALITY, CONSIDER LATERAL ISCHEMIA PROLONGED QT ABNORMAL ECG NO PREVIOUS ECGS AVAILABLE Confirmed by MD VILLEDA YASSAR ([id number]) on 11/22/2024 1:26:49 PM NAME : LAKESHA KOCH PID : [id number] : 1960 Gender : Female Race : ORD : [id number] Procedure Date : Nov 21 2024 06:26:12 Edit Date : Nov 22 2024 13:26:51 Diagnosis: SINUS TACHYCARDIA T WAVE ABNORMALITY, CONSIDER LATERAL ISCHEMIA PROLONGED QT ABNORMAL ECG NO PREVIOUS ECGS AVAILABLE Confirmed by MD VILLEDA YASSAR ([id number]) on 11/22/2024 1:26:49 PM Test Reason : Arrhythmia Location : 200 : [facility] 324 Overread By : MD VILLEDA YASSAR Edited By : MD VILLEDA YASSAR Referred By : KAVIN ADAMS Acquired by : MRAIE MEDINA [facility] ECHO WITH AGITATED SALINE CO NTRASTon 11-21-2024 ECHO WITH AGITATED SALINE CONTRAST Echocardiography Report: Transthoracic Echo [facility] Date of service: 11/21/2024 9:56:29 AM HOSPITAL Ordering physician: KY GONZALEZ Exam indication: VT [...] * Final (Updated) * * * CC [employer] [facility] : [id number] Normal [facility] ESR Westergren method (Bld) [Velocity]on 11-21-2024 ESR (Bld) [Velocity] 16 mm/h Normal 0-20 [facility] Comment on above: Order Comment: Speci men Type: URINE SPECIMEN Ordering Facility: [facility] Address: [address] [place] [address] Performed By: #### 2 4356-8 #### [facility] CLIA [id number] [address] [place] [address] HIGH SENSITIVITY TROPONIN To n 11-21-2024 Troponin T.cardiac High sensitivity method [Mass/Vol] 107 ng/L High <12 [facility] Comment on above: Order Comment: Speci men Type: BLOOD SPECIMEN Ordering Facility: [facility] Address: [address] [place] [address] Performed By: #### H STNT #### [facility] CLIA [id number] [address] [place] [address] Troponin T.cardiac High sensitivity method [Mass/Vol] 132 ng/L High <12 [facility] Comment on above: Order Comment: Speci men Type: BLOOD SPECIMEN Ordering Facility: [facility] Address: [address] [place] [address] Performed By: #### H STNT #### [facility] CLIA [id number] [address] HISTORY PHYSICALon HISTORY PHYSICAL HNO ID: [id number] Author: KY GONZALEZ MD Service: Cardiovascular Medicine Author Type: Physician Type: H&P Filed: 12/14/2024 12:08 Note Text: [facility] STAFF PHYSICIAN NOTE OF PERSONAL INVOLVEMENT IN CARE IMPRESSION: Patient is a 64 year old female with a known past medical history of severe malnutrition, recent C. 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 This patient was transferred directly from [facility] after having what was labeled as V-fib arrest where she was defibrillated twice achieving ROSC, not intubated, transferred directly to the [employer]. Minimal information was given and no EKG was available for review. Patient was seen and examined on arrival to the [employer] and she complained of mild chest discomfort which is reproducible to palpation. PLAN: See cath report for further details I have reviewed the documentation obtained and documented by the Resident and I have personally performed a face to face assessment of the patient and have personally participated in the cortez components of the visit which includes medical decision making.. I have discussed the case and management of the patient's care. Critical Care: I personally spent 40 minutes of critical care time involved in the care of this patient. This care required my full attention and direct personal managment of patient's STEMI presentation along with many other medical comorbidities.. The time spent excluded other procedures/services provided by me. STAFF PHYSICIAN: Ky Gonzalez MD DATE OF SERVICE: October TIME OF SERVICE: 3:00 AM CVICU MED HANDP PATIENT NAME: Lakesha Koch DATE: November 21, 2024 HPI Lakesha Koch is a 64 year old female with PMHx significant for - adenoca cecum mets to liver, on chemotherapy, following hemonc and palliative medicine (diagnosed Jan 2024) - severe malnutrition, BMI 15 - low BP, usually ranging in 90/60 at home - recent c diff Patient presented to [facility] on 11/21/2024 for evaluation of STEMI inferolateral.Patient is a transfer for [facility], went straight to dental laboratory technician. There is no EKG was brought from the previous hospital. Patient initially came for chest pain. However, per report patient had Vfib arrest there and shocked 2x. She achieved ROSC, not intubated. She received 1L IV bolus, aspirin loading, and started on heparin. Upon arrival, patient was Aox3. She mentioned she has mild chest discomfort that is reproducible with pressure for now. Initially the chest pain come and goes since yesterday around 9PM. Denied any cardiac history. former smoker, quit 1995. Former alcohol use, quit 2020. In the ED patient received 500 cc LVB, K 40mEq, aspirin, brilinta, nitro drip, fentanyl once, dopamine, and heparin drip. Paperwork showed labs that [facility]: CBC BMP unremarkable, just hypokalemia 3.0 Trop T 91 CXR no acute radiographic abnormality CTA no PE, R upper lobe nodule, follow up in 6 months. EKG not available upon arrival Echo 08/2023: EF 61%, LA enlargement, small pericardial effusion Relevant laboratory tests, imaging, and interval notes regarding to this admission have been reviewed. Patient is admitted to CVICU for further management. PAST MEDICAL HISTORY Diagnosis Date Anemia Anorexia [...] Colon Cancer No Family History SOCIAL HISTORY[1] Objective There were no vitals taken for this visit. No data recorded. No intake or output data in the 24 hours ending 11/21/24 0348 Physical Exam Vitals and nursing note reviewed. Constitutional: Comments: cachetic HENT: Head: Normocephalic and atraumatic. Mouth/Throat: M (more content not included)... Normal [facility] HbA1c (Bld)on 11-21-2024 Average glucose Estimated from glycated hemoglobin (Bld) [Mass/Vol] 108 mg/dL Normal [facility] Comment on above: Order Comment: Speci men Type: BLOOD SPECIMENOrdering Facility: [facility] Address: [address] [place] [address] Result Comment: eAG: (Estimated average glucose) is a calculated value from HgbA1c and is public utilities sales representative of the average blood glucose level in the last 2-3 month period. Performed By: #### 5 5454-3 ####[facility] [id number] [address] [address] [place] HbA1c (Bld) [Mass fraction] 5.4 % Normal 4.3-5.6 [facility] Comment on above: Order Comment: Umesh baugh Type: BLOOD SPECIMENOrdering Facility: [facility] Address: [address] [place] [address] Result Comment: [place] Diabetes Association guidelines indicate that patients with HgbA1c in the range 5.7-6.4% are at increased risk for development of diabetes, and intervention by lifestyle modification may be beneficial. HgbA1c greater or equal to 6.5% is considered diagnostic of diabetes. Performed By: #### 5 5454-3 ####[facility] [id number] [place] [id number] [place] LIPID PANEL, NONFASTINGon Cholesterol [Mass/Vol] 111 mg/dL Normal <200 [facility] Comment on above: Order Comment: Umesh baugh Type: BLOOD SPECIMEN Ordering [facility] Address: [address] [place] [address] Result Comment: <200 mg/dL, Desirable 200-239 mg/dL, Borderline high >239 mg/dL, High Performed By: #### 2 4323-8, 2777-1, 05408-9, LIPNF #### [facility] CLIA [id number] [address] [place] HDL CHOLESTEROL, NF 64 mg/dL Normal >39 [facility] Comment on above: Order Comment: Umesh baugh Type: BLOOD SPECIMEN Ordering Facility[facility] Address: [address] [place] [address] Result Comment: 40-5 9 mg/dL, Acceptable >59 mg/dL, High: Negative risk factor for coronary heart disease <40 mg/dL, Low: Positive risk factor for coronary heart disease Performed By: #### 2 4323-8, 277-, 27276-0, LIPNF #### [facility] CLIA [id number] [address] LDL CHOLESTEROL CALCULATED, NF 25 mg/dL Normal <100 [facility] Comment on above: Order Comment: Umesh baugh Type: BLOOD SPECIMEN Ordering Facility: [facility] Address: [address] [place] [address] Result Comment: <100 mg/dL, Optimal 100-129 mg/dL, Near optimal/above optimal 130-159 mg/dL, Borderline high 160-189 mg/dL, High >189 mg/dL, Very high Secondary prevention optimal LDL Cholesterol levels are recommended to be <70 mg/dL LDL cholesterol is calculated using the Leon-NIH equation. Performed By: #### 2 4323-8, 2776-03, , LIPNF #### [facility] CLIA [id number] [address] LDL/HDL RATIO, NF 0.39 mg/dL Normal <2.54 [facility] Comment on above: Order Comment: Umesh baugh Type: BLOOD SPECIMEN Ordering Facility: [facility] Address: [address] [place] [address] Result Comment: Refe noe: 1. National Cholesterol Education Program ATP III Guideline At-A-Glance Quick Desk Reference: National Heart, Lung, and Blood [place]. National Institutes of Health. 2001: NIH Publication No. 01-3305. 2. An International Atherosclerosis Society position paper: global recommendations for the management of dyslipidemia: executive summary, Atherosclerosis. 2014: 232(2):410-413. Performed By: #### 2 4323-8, 277-, 32381-1, LIPNF #### [facility] CLIA [id number] [address] [facility] NON HDL CHOL, NF 47 mg/dL Normal <130 [facility] Comment on above: Order Comment: Umesh baugh Type: BLOOD SPECIMEN Ordering Facility: [facility] Address: [address] [place] [address] Result Comment: <130 mg/dL, Optimal 130-159 mg/dL, Near optimal/above optimal 160-189 mg/dL, Borderline high 190-219 mg/dL, High >219 mg/dL, Very high Secondary prevention optimal non HDL Cholesterol levels are recommended to be <100 mg/dL Performed By: #### 2 4323-8, 7-1, , LIPNF #### [facility] CLIA [id number] [address] T CHOL/HDL RATIO NF 1.73 mg/dL Normal <5.10 [facility] Comment on above: Order Comment: Umesh baugh Type: BLOOD SPECIMEN Ordering Facility: [facility] Address: [address] [place] [address] Performed By: #### 2 4323-8, 2776-03, , LIPNF #### [facility] CLIA [id number] [address] TRIGLYCERIDES, NF 125 mg/dL Normal <150 [facility] Comment on above: Order Comment: Umesh baugh Type: BLOOD SPECIMEN Ordering Facility[facility] Address: [address] [place] [address] Result Comment: <150 mg/dL, Normal 150-199 mg/dL, Borderline high 200-499 mg/dL, High >499 mg/dL, Very high Performed By: #### 2 4323-8, 2776-03, , LIPNF #### [facility] CLIA [id number] [address] [facility] VLDL CHOLESTEROL, NF 16 mg/dL Normal <30 [facility] Comment on above: Order Comment: Umesh baugh Type: BLOOD SPECIMEN Ordering Facility[facility] Address: [address] [place] [address] Performed By: #### 2 4323-8, 2776-, , LIPNF #### [facility] CLIA [id number] [address] [place] Lactate (Bld) [Moles/Vol]on 11-21-2024 Lactate [Moles/Vol] 1.4 mmol/L Normal 0.5-2.2 [facility] Comment on above: Order Comment: Speci men Type: BLOOD SPECIMEN Ordering Facility[facility] Address: [address] [place] [address] Performed By: #### 3 2693-4 #### [facility] CLIA [id number] [address] [place] [address] [place] Lactate [Moles/Vol] 1.9 mmol/L Normal 0.5-2.2 [facility] Comment on above: Order Comment: Speci men Type: URINE SPECIMEN Ordering Facility[facility] Address: [address] [place] [address] Performed By: #### 2 4356-8 #### [facility] CLIA [id number] [address] [place] [address] [place] Magnesium SerPl-mCncon 11-21 Magnesium [Mass/Vol] 1.7 mg/dL Normal 1.7-2.3 [facility] Comment on above: Order Comment: Speci men Type: BLOOD SPECIMENOrdering Facility: [facility] Address: [address] [place] [address] Performed By: #### 2 4323-8, 277-, , LIPNF ####[facility]IA [id number] [place] [address] [place] Phosphate SerPl-mCncon 11-21 Phosphate [Mass/Vol] 2.8 mg/dL Normal 2.7-4.8 [facility] Comment on above: Order Comment: Speci men Type: BLOOD SPECIMENOrdering Facility: [facility] Address: [address] [place] [address] Performed By: #### 2 4323-8, 2777-1, , LIPNF ####[facility] [id number] [place] [address] [place] STAPHYLOCOCCUS AUREUS AND MR SA SCREEN, PCR, NASALon 11-21-2024 S. aureus and MRSA panel SAUNDRA+probe (Nose) Not detected Normal Not Detected [facility] Comment on above: Order Comment: Speci men Type: URINE SPECIMEN [facility] Address: [address] [place] [address] Performed By: #### 2 4356-8 #### [facility] CLIA [id number] [address] Troponin T HS 2 HRon 025 Trop T High Sen 82 ng/L Invalid Interpretation Code <=14 [facility] Comment on above: Result Comment: Crit ical Result(s) Called at::11-21-24 ann sparrby:??Tricia Bowman Results read back by same. Performed By: #### L 499.0042 ####[facility] [id number] [place], [place], [address](592) Troponin T HS 4 HRon 025 Trop T High Sen Normal <=14 [facility] Comment on above: Result Comment: PT D ISCHARGED Performed By: #### L 499.0043 ####[facility] [id number] [facility] [place], [address] Troponin T.cardiac [Mass/vol ume] in Serum or Plasma by High sensitivity methodOrdered By: Kavin Adams on 11-21-2024 Troponin T.cardiac High sensitivity method [Mass/Vol] 82 ng/L Critically high <14 [facility] Comment on above: Critical Result(s) C alled at::11-21-24 ann sparr by: Tricia Bowman Results read back by same. Urinalysis complete panel (U )on 11-21-2024 Bilirubin Ql (U) Negative Normal Negative [facility] Comment on above: Order Comment: Speci men Type: URINE SPECIMEN Ordering Facility: [facility] Address: [address] [place] [address] Performed By: #### 2 4356-8 #### [facility] CLIA [id number] [address] [facility] Clarity (Unsp spec) Clear Normal Clear [facility] Comment on above: Order Comment: Speci men Type: URINE SPECIMEN Ordering Facility: [facility] Address: [address] [place] [address] Performed By: #### 2 4356-8 #### [facility] CLIA [id number] [address] Color (U) Colorless Normal yellow [facility] Comment on above: Order Comment: Speci men Type: URINE SPECIMEN Ordering Facility: [facility] Address: [address] [place] [address] Performed By: #### 2 4356-8 #### [facility] CLIA [id number] [address] Glucose Test strip (U) [Mass/Vol] Negative Normal Trace, Negative [facility] Comment on above: Order Comment: Speci men Type: URINE SPECIMEN Ordering Facility: [facility] Address: [address] [place] [address] Performed By: #### 2 4356-8 #### [facility] CLIA [id number] [address] Hemoglobin Ql (U) Negative Normal Negative, Trace [facility] Comment on above: Order Comment: Speci men Type: URINE SPECIMEN Ordering Facility: [facility] Address: [address] [place] [address] Performed By: #### 2 4356-8 #### [facility] CLIA [id number] [address] Hyaline casts (Urine sed) [#/Area] 1-3 /LPF Abnormal 0 /LPF [facility] Comment on above: Order Comment: Speci men Type: URINE SPECIMEN Ordering Facility: [facility] Address: [address] [place] [address] Performed By: #### 2 4356-8 #### [facility] CLIA [id number] [address] Ketones Ql (U) Negative Normal Negative, Trace [facility] Comment on above: Order Comment: Speci men Type: URINE SPECIMEN Ordering Facility: [facility] Address: [address] [place] [address] Performed By: #### 2 4356-8 #### [facility] CLIA [id number] [address] Leukocyte esterase Test strip Ql (U) Negative Normal Negative, 25 Adeola/uL [facility] Comment on above: Order Comment: Speci men Type: URINE SPECIMEN Ordering Facility: [facility] Address: [address] [place] [address] Performed By: #### 2 4356-8 #### [facility] CLIA [id number] [address] Nitrite Ql (U) Negative Normal Negative [facility] Comment on above: Order Comment: Speci men Type: URINE SPECIMEN Ordering Facility: [facility] Address: [address] [place] [address] Performed By: #### 2 4356-8 #### [facility] CLIA [id number] [address] [place] pH (U) 5.5 [pH] Normal 5.0-8.0 [facility] Comment on above: Order Comment: Speci men Type: URINE SPECIMEN Ordering Facility: [facility] Address: [address] [place] [address] Performed By: #### 2 4356-8 #### [facility] CLIA [id number] [address] Protein (U) [Mass/Vol] Negative Normal Trace, Negative [facility] Comment on above: Order Comment: Speci men Type: URINE SPECIMEN Ordering Facility: [facility] Address: [address] [place] [address] Performed By: #### 2 4356-8 #### [facility] CLIA [id number] [address] [place] RBC LM.HPF (Urine sed) [#/Area] 0-3 /HPF Normal 0-3 /HPF [facility] Comment on above: Order Comment: Speci men Type: URINE SPECIMEN Ordering Facility: [facility] Address: [address] [place] [address] Performed By: #### 2 4356-8 #### [facility] CLIA [id number] [address] Specific gravity (U) [Rel density] 1.021 Normal 1.005-1.03 0 [facility] Comment on above: Order Comment: Speci men Type: URINE SPECIMEN Ordering Facility: [facility] Address: [address] [place] [address] Performed By: #### 2 4356-8 #### [facility] CLIA [id number] [address] Urobilinogen Ql (U) Normal Normal Normal [facility] Comment on above: Order Comment: Speci men Type: URINE SPECIMEN Ordering Facility: [facility] Address: [address] [place] [address] Performed By: #### 2 4356-8 #### [facility] CLIA [id number] [address] WBC LM.HPF (Urine sed) [#/Area] 0-5 /HPF Normal 0-5 /HPF [facility] Comment on above: Order Comment: Speci men Type: URINE SPECIMEN Ordering Facility: [facility] Address: [address] [place] [address] Performed By: #### 2 4356-8 #### [facility] CLIA [id number] [address] [place] 12 Lead EKGon 11-20-2024 12 Lead EKG Normal [facility] 12 Lead EKG Normal [facility] Absolute lymphocyte countOrd ered By: Kavin Adams on 11-20-2024 Lymphocytes Auto (Unsp spec) [#/Vol] 1.78 10*3/uL 0.83-4.51 [facility] Absolute neutrophil countOrd ered By: Kavin Adams on 11-20-2024 Neutrophils (Bld) [#/Vol] 3.5 10*3/uL 2.0-7.7 [facility] Activated partial thrombopla stin time (aPTT) in platelet poor plasma by coagulation aOrdered By: Kavin Le on 11-20-2024 aPTT Coag (PPP) [Time] 22.2 s Low 24.1-36.2 [facility] Anion gap in Serum or Plasma Ordered By: Kavin Adams on 11-20-2024 Anion gap [Moles/Vol] 20 mmol/L High 5-15 [facility] Automated lymphocyte count a s percentage of total leukocytesOrdered By: Kavin Adams on 11-20-2024 Lymphocytes/100 WBC Auto (Unsp spec) 30.9 % -41 [facility] BUN/creatinine ratioOrdered By: Kavin Adams on 11-20-2024 Urea nitrogen/Creatinine [Mass ratio] 30.1 mg/mg High 10- [facility] Basic Metabolic Profile (BMP )on 11-20-2024 BUN/CRE 30.1 RATIO High 10- [facility] Comment on above: Performed By: #### L 300.4310, L100.0100, L500.2500, L501.4021, L300.3900 ####[facility] [address] [place], [address] Calcium [Mass/Vol] 9.5 mg/dL Normal 7.6-11.0 [facility] Comment on above: Performed By: #### L 300.4310, L100.0100, L500.2500, L501.4021, L300.3900 ####[facility] [address] [place], [address] Chloride [Moles/Vol] 100 mmol/L Normal 98-108 [facility] Comment on above: Performed By: #### L 300.4310, L100.0100, L500.2500, L501.4021, L300.3900 ####[facility] [address] [place], [address] CO2 [Moles/Vol] 19.7 mmol/L Low 21.0-32.0 [facility] Comment on above: Performed By: #### L 300.4310, L100.0100, L500.2500, L501.4021, L300.3900 ####[facility] [address] [place], [address] Creatinine [Mass/Vol] 1.06 mg/dL Normal 0.70-1.20 [facility] Comment on above: Performed By: #### L 300.4310, L100.0100, L500.2500, L501.4021, L300.3900 ####[facility] [address] [place], [address] ECRCL 36.67 ml/min Low 50-250 [facility] Comment on above: Performed By: #### L 300.4310, L100.0100, L500.2500, L501.4021, L300.3900 ####[facility] [address] [place], [address] GAP 20 High 5-15 [facility] Comment on above: Performed By: #### L 300.4310, L100.0100, L500.2500, L501.4021, L300.3900 ####[facility] [address] [place], [address] GFR/1.73 sq M.predicted among non-blacks MDRD (S/P/Bld) [Vol rate/Area] 58 mL/min/{1.73_m2} Low >60 [facility] Comment on above: Result Comment: mL/m in/1.73m2 CKD-EPI Creatinine Equation (2020) Performed By: #### L 300.4310, L100.0100, L500.2500, L501.4021, L300.3900 ####[facility] [address] [place], [address] Glucose [Mass/Vol] 162 mg/dL High 70-99 [facility] Comment on above: Performed By: #### L 300.4310, L100.0100, L500.2500, L501.4021, L300.3900 ####[facility] [address] [place], [address] Potassium [Moles/Vol] 3.0 mmol/L Low 3.3-5.1 [facility] Comment on above: Result Comment: Hemo lysis present, Results??could be affected.?? Performed By: #### L 300.4310, L100.0100, L500.2500, L501.4021, L300.3900 ####[facility] [address] [place], [address] Sodium [Moles/Vol] 140 mmol/L Normal 133-145 [facility] Comment on above: Performed By: #### L 300.4310, L100.0100, L500.2500, L501.4021, L300.3900 ####[facility] [address] [place], [address] Urea nitrogen [Mass/Vol] 32 mg/dL High 4-19 [facility] Comment on above: Performed By: #### L 300.4310, L100.0100, L500.2500, L501.4021, L300.3900 ####[facility] [address] [place], [address] Basophil percentageOrdered B y: Kavin Adams on 11-20-2024 Basophils/100 WBC (Bld) 0.9 % 0-1 [facility] CBC W/Diff, Automatedon 10-26 Absolute Lymph 1.78 X10 3/uL Normal 0.83-4.51 [facility] Comment on above: Performed By: #### L 300.4310, L100.0100, L500.2500, L501.4021, L300.3900 ####[facility] [address] [place], [address] Absolute Neut 3.5 X10 3/uL Normal 2.0-7.7 [facility] Comment on above: Performed By: #### L 300.4310, L100.0100, L500.2500, L501.4021, L300.3900 ####[facility] [address] [place], [address] Basophils/100 WBC (Bld) 0.9 % Normal 0-1 [facility] Comment on above: Performed By: #### L 300.4310, L100.0100, L500.2500, L501.4021, L300.3900 ####[facility] [address] [place], [address] Eosinophils/100 WBC (Bld) 1.9 % Normal 0-5 [facility] Comment on above: Performed By: #### L 300.4310, L100.0100, L500.2500, L501.4021, L300.3900 ####[facility] [address] [place], [address] Erythrocyte distribution width (RBC) [Ratio] 14.4 % Normal 11.6-14.6 [facility] Comment on above: Performed By: #### L 300.4310, L100.0100, L500.2500, L501.4021, L300.3900 ####[facility] [address] [place], [address] Hematocrit (Bld) [Volume fraction] 37.7 % Normal 37-47 [facility] Comment on above: Performed By: #### L 300.4310, L100.0100, L500.2500, L501.4021, L300.3900 ####[facility] [address] [place], [address] Hemoglobin (Bld) [Mass/Vol] 12.4 g/dL Normal 12.0-15.0 [facility] Comment on above: Performed By: #### L 300.4310, L100.0100, L500.2500, L501.4021, L300.3900 ####[facility] [address] [place], [address] IG% 0.300 Normal 0.0-0.9 [facility] Comment on above: Result Comment: IG% - Immature Granulocytes (promyelocytes, myelocytes andmetamyelocytes) > 1% indicates that a LEFT SHIFT is Present. Performed By: #### L 300.4310, L100.0100, L500.2500, L501.4021, L300.3900 ####[facility] [address] [place], [address] Lymphocytes/100 WBC (Bld) 30.9 % Normal 19-41 [facility] Comment on above: Performed By: #### L 300.4310, L100.0100, L500.2500, L501.4021, L300.3900 ####[facility] [address] [place], [address] MCH (RBC) [Entitic mass] 29.8 pg Normal 27.0-32.0 [facility] Comment on above: Performed By: #### L 300.4310, L100.0100, L500.2500, L501.4021, L300.3900 ####[facility] [address] [place], [address] MCHC (RBC) [Mass/Vol] 32.9 g/dL Normal 32-36 [facility] Comment on above: Performed By: #### L 300.4310, L100.0100, L500.2500, L501.4021, L300.3900 ####[facility] [address] [place], [address] MCV (RBC) [Entitic vol] 90.6 fL Normal 81-99 [facility] Comment on above: Performed By: #### L 300.4310, L100.0100, L500.2500, L501.4021, L300.3900 ####[facility] [address] [place], [address] Monocytes/100 WBC (Bld) 5.7 % Normal 0-10 [facility] Comment on above: Performed By: #### L 300.4310, L100.0100, L500.2500, L501.4021, L300.3900 ####[facility] [address] [place], [address] Neutrophils/100 WBC (Bld) 60.3 % Normal 47-70 [facility] Comment on above: Performed By: #### L 300.4310, L100.0100, L500.2500, L501.4021, L300.3900 ####[facility] [address] [place], [address] Nucleated RBC (Bld) [#/Vol] 0 10*3/uL Normal 0-5 [facility] Comment on above: Performed By: #### L 300.4310, L100.0100, L500.2500, L501.4021, L300.3900 ####[facility] [address] [place], [address] Platelet mean volume (Bld) [Entitic vol] 9.1 fL Normal 6.2-12.0 [facility] Comment on above: Performed By: #### L 300.4310, L100.0100, L500.2500, L501.4021, L300.3900 ####[facility] [address] [place], [address] Platelets (Bld) [#/Vol] 265 10*3/uL Normal 150-450 [facility] Comment on above: Performed By: #### L 300.4310, L100.0100, L500.2500, L501.4021, L300.3900 ####[facility] [address] [place], [address] RBC (Bld) [#/Vol] 4.16 10*6/uL Low 4.2-5.4 [facility] Comment on above: Performed By: #### L 300.4310, L100.0100, L500.2500, L501.4021, L300.3900 ####[facility] [address] [place], [address] RDW SD 47.6 fl High 35.1-43.9 [facility] Comment on above: Performed By: #### L 300.4310, L100.0100, L500.2500, L501.4021, L300.3900 ####[facility] [address] [place], [address] WBC (Bld) [#/Vol] 5.8 10*3/uL Normal 4.4-11.0 [facility] Comment on above: Performed By: #### L 300.4310, L100.0100, L500.2500, L501.4021, L300.3900 ####[facility] [address] [place], [address] CNPNon 11-20-2024 CNPN Normal [facility] CTA Chest W/WO Contraston CTA Chest W/WO Contrast Normal [facility] Carbon dioxide, total [Moles /volume] in Central venous bloodOrdered By: Kavin Adams on 11-20-2024 CO2 [Moles/Vol] 19.7 mmol/L Low 21.0-32.0 [facility] Chest 1 View (Portable)on Chest 1 View (Portable) Normal [facility] Chloride assayOrdered By: Justin Adams on 11-20-2024 Chloride [Moles/Vol] 100 mmol/L 98-108 [facility] Consultation - Cardiologyon 11-20-2024 Consultation - Cardiology Normal [facility] Emergency Department Summary on 11-20-2024 Emergency Department Summary Normal [facility] Eosinophil percentageOrdered By: Kavin Adams on 11-20-2024 Eosinophils/100 WBC (Bld) 1.9 % 0-5 [facility] Erythrocyte distribution wid th ratioOrdered By: Kavin Evy on 11-20-2024 Erythrocyte distribution width (RBC) [Ratio] 14.4 % 11.6-14.6 [facility] Erythrocyte distribution wid th standard deviationOrdered By: Kavin Adams on 11-20-2024 Erythrocyte distribution width (RBC) [Ratio] 47.6 fl High 35.1-43.9 [facility] Glomerular filtration rate ( GFR) estimation/1.73 sq m using serum, plasma, or whole bOrdered By: Kavin Adams on 11-20-2024 GFR/1.73 sq M.predicted among non-blacks MDRD (S/P/Bld) [Vol rate/Area] 58 mL/min/{1.73_m2} Low >60 [facility] Comment on above: mL/min/1.73m2 CKD-EP I Creatinine Equation (2020) Hematocrit Auto (Bld) [Volum e fraction]Ordered By: Kavin Adams on 11-20-2024 Hematocrit (Bld) [Volume fraction] 37.7 % 37-47 [facility] Hemoglobin measurementOrdere d By: Kavin Adams on 11-20-2024 Hemoglobin (Bld) [Mass/Vol] 12.4 g/dL 12.0-15.0 [facility] Immature granulocytes/100 WB C Auto (Bld)Ordered By: Kavin Adams on 11-20-2024 Immature granulocytes/100 WBC (Bld) 0.300 % 0.0-0.9 [facility] Comment on above: IG% - Immature Granu locytes (promyelocytes, myelocytes and metamyelocytes) > 1% indicates that a LEFT SHIFT is Present. International normalized rat io (INR) calculationOrdered By: Kavin Adams on 11-20-2024 INR Coag (Bld) [Relative time] 0.9 {INR} [facility] L501.4021on 11-20-2024 Trop T High Sen 91 ng/L Invalid Interpretation Code <=14 [facility] Comment on above: Result Comment: Crit ical Result(s) Called at: by:??Results read back bysame.Critical Result(s) Called at: by:??Results read back bysame.Critical Result(s) Called [place]ERRAT [place]EN at: 2302 by:NIKKI??Results read back by same. Performed By: #### L 300.4310, L100.0100, L500.2500, L501.4021, L300.3900 ####[facility] [address] [place], [place], [id number] MCV (mean corpuscular volume ) determinationOrdered By: Kavin Adams on 11-20-2024 MCV (RBC) [Entitic vol] 90.6 fL 81-99 [facility] Mean corpuscular hemoglobin (MCH) determinationOrdered By: Kavin Admas on 11-20-2024 MCH (RBC) [Entitic mass] 29.8 pg 27.0-32.0 [facility] Mean corpuscular hemoglobin concentration (MCHC) determinationOrdered By: Kavin Adams on 11-20-2024 MCHC (RBC) [Mass/Vol] 32.9 g/dL 32-36 [facility] Mean platelet volume determi nationOrdered By: Kavin Adams on 11-20-2024 Platelet mean volume (Bld) [Entitic vol] 9.1 fL 6.2-12.0 [facility] Monocyte percentageOrdered B y: Kavin Adams on 11-20-2024 Monocytes/100 WBC (Bld) 5.7 % 0-10 [facility] Neutrophil percentageOrdered By: Kavin Adams on 11-20-2024 Neutrophils/100 WBC (Bld) 60.3 % 47-70 [facility] Nucleated red blood cell per centageOrdered By: Kavin Adams on 11-20-2024 Nucleated RBC/100 WBC (Bld) [Ratio] 0 % 0-5 [facility] Partial Thromboplast Timeon 11-20-2024 aPTT Coag (Bld) [Time] 22.2 s Low 24.1-36.2 [facility] Comment on above: Performed By: #### L 300.4310, L100.0100, L500.2500, L501.4021, L300.3900 ####[facility] [address] [place], [place], [id number] Platelet countOrdered By: Justin gonzalez Evy on 11-20-2024 Platelets (Bld) [#/Vol] 265 10*3/uL 150-450 [facility] Potassium measurement (mass/ volume)Ordered By: Kavin Adams on 11-20-2024 Potassium (Unsp spec) [Mass/Vol] 3.0 mmol/L Low 3.3-5.1 [facility] Comment on above: Hemolysis present, R esults could be affected. Prothrombin Time w/INRon INR Coag (PPP) [Relative time] 0.9 {INR} Normal [facility] Comment on above: Performed By: #### L 300.4310, L100.0100, L500.2500, L501.4021, L300.3900 ####[facility] [address] [place], [place], [id number](232 PT Coag (PPP) [Time] 12.4 s Normal 11.7-14.9 [facility] Comment on above: Performed By: #### L 300.4310, L100.0100, L500.2500, L501.4021, L300.3900 ####[facility] [address] [place], [address] Prothrombin timeOrdered By: Kavin Adams on 11-20-2024 PT Coag (PPP) [Time] 12.4 s 11.7-14.9 [facility] RBC Auto (Bld) [#/Vol]Ordere d By: Kavin Adams on 11-20-2024 RBC (Bld) [#/Vol] 4.16 10*6/uL Low 4.2-5.4 [facility] Serum creatinine measurement (mass/volume)Ordered By: Kavin Adams on 11-20-2024 Creatinine [Mass/Vol] 1.06 mg/dL 0.70-1.20 [facility] Serum glucose measurement (m ass/volume)Ordered By: Kavin Adams on 11-20-2024 Glucose [Mass/Vol] 162 mg/dL High 70-99 [facility] Serum or plasma calcium renetta urement (mass/volume)Ordered By: Kavin Adams on 11-20-2024 Calcium [Mass/Vol] 9.5 mg/dL 7.6-11.0 [facility] Serum or plasma urea nitroge n measurement (mass/volume)Ordered By: Kavin Adams on 11-20-2024 Urea nitrogen [Mass/Vol] 32 mg/dL High 4-19 [facility] Sodium levelOrdered By: Kavin Adams on 11-20-2024 Sodium [Moles/Vol] 140 mmol/L 133-145 [facility] Troponin T.cardiac [Mass/vol ume] in Serum or Plasma by High sensitivity methodOrdered By: Kavin Adams on 11-20-2024 Troponin T.cardiac High sensitivity method [Mass/Vol] 91 ng/L Critically high <14 [facility] Comment on above: Critical Result(s) C alled at: by: Results read back by same.Critical Result(s) Called at: by: Results read back by same.Critical Result(s) Called [place] at: 2302 by: NIKKI Results read back by same. White blood cell (WBC) count Ordered By: Kavin Adams on 11-20-2024 WBC (Bld) [#/Vol] 5.8 10*3/uL 4.4-11.0 [facility] CBC W Auto Differential pane l (Bld)on 11-18-2024 Basophils (Bld) [#/Vol] 0.08 10*3/uL [facility] Basophils/100 WBC (Bld) 1.1 % [facility] Differential cell count method Nom (Bld) Auto [facility] Eosinophils (Bld) [#/Vol] 0.31 10*3/uL [facility] Eosinophils/100 WBC (Bld) 4.2 % [facility] Erythrocyte distribution width (RBC) [Ratio] 13.8 % 11.5 - 15.0 % [facility] Hematocrit (Bld) [Volume fraction] 32.2 % Low 36.0 - 46.0 % [facility] Hemoglobin (Bld) [Mass/Vol] 11.1 g/dL Low 11.5 - 15.5 g/dL [facility] Immature granulocytes (Bld) [#/Vol] [facility] Immature granulocytes/100 WBC (Bld) 0.3 % [facility] Interpretation and review of laboratory results Abnormal [facility] Lymphocytes (Bld) [#/Vol] 1.96 10*3/uL [facility] Lymphocytes/100 WBC (Bld) 26.5 % [facility] MCH (RBC) [Entitic mass] 29.8 pg 26.0 - 34.0 pg [facility] MCHC (RBC) [Mass/Vol] 34.5 g/dL 30.5 - 36.0 g/dL [facility] MCV (RBC) [Entitic vol] 86.3 fL 80.0 - 100.0 fL [facility] Monocytes (Bld) [#/Vol] 0.50 10*3/uL [facility] Monocytes/100 WBC (Bld) 6.8 % [facility] Neutrophils (Bld) [#/Vol] 4.53 10*3/uL [facility] Neutrophils/100 WBC (Bld) 61.1 % [facility] Nucleated RBC (Bld) [#/Vol] [facility] Nucleated RBC/100 WBC (Bld) [Ratio] 0.0 % /100 WBC [facility] Platelet mean volume (Bld) [Entitic vol] 8.5 fL Low 9.0 - 12.7 fL [facility] Platelets (Bld) [#/Vol] 275 10*3/uL [facility] RBC (Bld) [#/Vol] 3.73 10*6/uL Low 3.90 - 5.20 m/uL [facility] WBC (Bld) [#/Vol] 7.40 10*3/uL [facility] Basophils (Bld) [#/Vol] 0.08 10*3/uL Normal <0.11 [facility] Comment on above: Order Comment: Speci men Type: BLOOD SPECIMENOrdering Facility: [facility] Address: [address] [place], [place] [address] Performed By: #### 5 7021-8 ####[facility] [id number] [place] [id number] [place] Basophils/100 WBC (Bld) 1.1 % Normal [facility] Comment on above: Order Comment: Speci men Type: BLOOD SPECIMENOrdering Facility: [facility] Address: [address] [place] [address] Performed By: #### 5 7021-8 ####[facility] [id number] [place] [address] [place] Differential cell count method Nom (Bld) Auto Normal [facility] Comment on above: Order Comment: Speci men Type: BLOOD SPECIMENOrdering Facility: [facility] Address: [address] [place] [address] Performed By: #### 5 7021-8 ####[facility] [id number] [place] [address] [place] Eosinophils (Bld) [#/Vol] 0.31 10*3/uL Normal <0.46 [facility] Comment on above: Order Comment: Speci men Type: BLOOD SPECIMENOrdering Facility: [facility] Address: [address] [place] [address] Performed By: #### 5 7021-8 ####[facility] MILLWNCLIA [id number] [place] [address] [place] Eosinophils/100 WBC (Bld) 4.2 % Normal [facility] Comment on above: Order Comment: Speci men Type: BLOOD SPECIMENOrdering Facility: [facility] Address: [address] [place] [address] Performed By: #### 5 7021-8 ####[facility] MILLTOWNCLIA [id number] [place] [address] [place] Erythrocyte distribution width (RBC) [Ratio] 13.8 % Normal 11.5-15.0 [facility] Comment on above: Order Comment: Speci men Type: BLOOD SPECIMENOrdering Facility: [facility] Address: [address] [place] [address] Performed By: #### 5 7021-8 ####[facility] MILLPARKVIEW LAGRANGE HOSPITALLIA [id number] [place] [address] [place] Hematocrit (Bld) [Volume fraction] 32.2 % Low 36.0-46.0 [facility] Comment on above: Order Comment: Speci men Type: BLOOD SPECIMENOrdering Facility: [facility] Address: [address] [place] [address] Performed By: #### 5 7021-8 ####[facility] [id number] [place] [address] [place] Hemoglobin (Bld) [Mass/Vol] 11.1 g/dL Low 11.5-15.5 [facility] Comment on above: Order Comment: Speci men Type: BLOOD SPECIMENOrdering Facility: [facility] Address: [address] [place] [address] Performed By: #### 5 7021-8 ####[facility] [id number] [place] [address] [place] Immature granulocytes (Bld) [#/Vol] 10*3/uL Normal <0.10 [facility] Comment on above: Order Comment: Speci men Type: BLOOD SPECIMENOrdering Facility: [facility] Address: [address] [place] [address] Performed By: #### 5 7021-8 ####[facility] [id number] [place] [address] [place] Immature granulocytes/100 WBC (Bld) 0.3 % Normal [facility] Comment on above: Order Comment: Speci men Type: BLOOD SPECIMENOrdering Facility: [facility] Address: [address] [place] [address] Performed By: #### 5 7021-8 ####[facility] HOSPITALNCLIA [id number] [place] [address] [place] Lymphocytes (Bld) [#/Vol] 1.96 10*3/uL Normal 1.00-4.00 [facility] Comment on above: Order Comment: Speci men Type: BLOOD SPECIMENOrdering Facility: [facility] Address: [address] [place] [address] Performed By: #### 5 7021-8 ####[facility] [id number] [place] [address] [place] Lymphocytes/100 WBC (Bld) 26.5 % Normal [facility] Comment on above: Order Comment: Speci men Type: BLOOD SPECIMENOrdering Facility: [facility] Address: [address] [place] [address] Performed By: #### 5 7021-8 ####[facility] [id number] [place] [address] [place] MCH (RBC) [Entitic mass] 29.8 pg Normal 26.0-34.0 [facility] Comment on above: Order Comment: Speci men Type: BLOOD SPECIMENOrdering Facility: [facility] Address: [address] [place] [address] Performed By: #### 5 7021-8 ####[facility] [id number] [place] [address] [place] MCHC (RBC) [Mass/Vol] 34.5 g/dL Normal 30.5-36.0 [facility] Comment on above: Order Comment: Speci men Type: BLOOD SPECIMENOrdering Facility: [facility] Address: [address] [place] [address] Performed By: #### 5 7021-8 ####[facility] [id number] [place] [address] [place] MCV (RBC) [Entitic vol] 86.3 fL Normal 80.0-100.0 [facility] Comment on above: Order Comment: Speci men Type: BLOOD SPECIMENOrdering Facility: [facility] Address: [address] [place] [address] Performed By: #### 5 7021-8 ####[facility] MILLJUSTINWNCLIA [id number] [place] [address] [place] Monocytes (Bld) [#/Vol] 0.50 10*3/uL Normal <0.87 [facility] Comment on above: Order Comment: Speci men Type: BLOOD SPECIMENOrdering Facility: [facility] Address: [address] [place] [address] Performed By: #### 5 7021-8 ####[facility] MILLWNCLIA [id number] [place] [address] [place] Monocytes/100 WBC (Bld) 6.8 % Normal [facility] Comment on above: Order Comment: Speci men Type: BLOOD SPECIMENOrdering Facility: [facility] Address: [address] [place] [address] Performed By: #### 5 7021-8 ####[facility] HOSPITALNCLIA [id number] [place] [address] [place] Neutrophils (Bld) [#/Vol] 4.53 10*3/uL Normal 1.45-7.50 [facility] Comment on above: Order Comment: Speci men Type: BLOOD SPECIMENOrdering Facility: [facility] Address: [address] [place] [address] Performed By: #### 5 7021-8 ####[facility] MILLWNCLIA [id number] [place] [address] [place] Neutrophils/100 WBC (Bld) 61.1 % Normal [facility] Comment on above: Order Comment: Speci men Type: BLOOD SPECIMENOrdering Facility: [facility] Address: [address] [place] [address] Performed By: #### 5 7021-8 ####[facility] MILLWNCLIA [id number] [place] [address] [place] Nucleated RBC (Bld) [#/Vol] 10*3/uL Normal <0.01 [facility] Comment on above: Order Comment: Speci men Type: BLOOD SPECIMENOrdering Facility: [facility] Address: [address] [place] [address] Performed By: #### 5 7021-8 ####[facility] [id number] [place] [address] [place] Nucleated RBC/100 WBC (Bld) [Ratio] 0.0 /100 WBC Normal [facility] Comment on above: Order Comment: Speci men Type: BLOOD SPECIMENOrdering Facility: [facility] Address: [address] [place] [address] Performed By: #### 5 7021-8 ####[facility] [id number] [place] [address] [place] Platelet mean volume (Bld) [Entitic vol] 8.5 fL Low 9.0-12.7 [facility] Comment on above: Order Comment: Speci men Type: BLOOD SPECIMENOrdering Facility: [facility] Address: [address] [place] [address] Performed By: #### 5 7021-8 ####[facility] HOSPITALNCLIA [id number] [place] [address] [place] Platelets (Bld) [#/Vol] 275 10*3/uL Normal 150-400 [facility] Comment on above: Order Comment: Speci men Type: BLOOD SPECIMENOrdering Facility: [facility] Address: [address] [place] [address] Performed By: #### 5 7021-8 ####[facility] HOSPITALNCLIA [id number] [place] [address] [place] RBC (Bld) [#/Vol] 3.73 10*6/uL Low 3.90-5.20 [facility] Comment on above: Order Comment: Speci men Type: BLOOD SPECIMENOrdering Facility: [facility] Address: [address] [place] [address] Performed By: #### 5 7021-8 ####[facility] HOSPITALNCLIA [id number] [place] [address] [place] WBC (Bld) [#/Vol] 7.40 10*3/uL Normal 3.70-11.00 [facility] Comment on above: Order Comment: Speci men Type: BLOOD SPECIMENOrdering Facility: [facility] Address: [address] [place] [address] Performed By: #### 5 7021-8 ####[facility] HOSPITALNCA [id number] [place] [address] [place] CEA SerPl-mCncon 11-18-2024 Carcinoembryonic Ag [Mass/Vol] 15.1 ng/mL High <=2.9 [facility] Comment on above: Order Comment: Speci men Type: BLOOD SPECIMENOrdering Facility: [facility] Address: [address] [place] [address] Result Comment: Carc inoembryonic antigen test is used as an aid in monitoring response to treatment or recurrence in patients with established colorectal, breast, lung, prostatic, pancreatic, and ovarian carcinomas. Clinical correlation is required.The Carcinoembryonic antigen test was performed using the [employer] DXI paramagnetic particle chemiluminescent immunoassay method. Results obtained with different assay methods or kits cannot be used interchangeably. Performed By: #### 2 039-6 ####[facility] LABCLIA [id number] [place] [address] [place] CNOVSPon 11-18-2024 CNOVSP Normal [facility] CNPNon 11-18-2024 CNPN Normal [facility] Comprehensive metabolic 2000 panelOrdered By: Merlyn Veloz on 11-18-2024 Albumin [Mass/Vol] 4.2 g/dL 3.9 - 4.9 g/dL [facility] ALP [Catalytic activity/Vol] 81 U/L 34 - 123 U/L [facility] ALT [Catalytic activity/Vol] 8 U/L 7 - 38 U/L [facility] Anion gap [Moles/Vol] 14 mmol/L 8 - 15 mmol/L [facility] AST [Catalytic activity/Vol] 17 U/L 13 - 35 U/L [facility] Bilirubin [Mass/Vol] 0.3 mg/dL 0.2 - 1 .3 mg/dL [facility] Calcium [Mass/Vol] 9.2 mg/dL 8.5 - 10. 2 mg/dL [facility] Chloride [Moles/Vol] 106 mmol/L 98 - 10 7 mmol/L [facility] CO2 [Moles/Vol] 20 mmol/L Low 22 - 30 mmol/L [facility] Creatinine [Mass/Vol] 0.69 mg/dL 0.58 - 0.96 mg/dL [facility] GFR/1.73 sq M.predicted among non-blacks MDRD (S/P/Bld) [Vol rate/Area] 96 mL/min/{1.73_m2} - PINF [facility] Comment on above: Estimated Glomerular Filtration [...] 141 mg/dL High 74 - 99 mg/dL [facility] Comment on above: The [place] Di[employer] Association (ADA) provides guidance for [...] Standards of Medical Care in Diabetes 2016, [place] [employer]. Diabetes Care. 2016.39(Suppl 1). Interpretation and review of laboratory results Abnormal [facility] Potassium [Moles/Vol] 2.6 mmol/L Low 3.7 - 5.1 mmol/L [facility] Protein [Mass/Vol] 6.9 g/dL 6.3 - 8.0 g/dL [facility] Sodium [Moles/Vol] 140 mmol/L 136 - 144 mmol/L [facility] Urea nitrogen [Mass/Vol] 20 mg/dL 7 - 21 mg/dL [facility] Comprehensive metabolic 2000 panelon 11-18-2024 Albumin [Mass/Vol] 4.2 g/dL Normal 3.9-4.9 [facility] Comment on above: Order Comment: Abdouli lupis Type: BLOOD SPECIMENOrdering Facility: [facility] Address: [address] [place] [address] Performed By: #### 1 9123-9, 06914-2 ####[facility] HOSPITALKALIEA [id number] [place] [address] [place] ALP [Catalytic activity/Vol] 81 U/L Normal 34-123 [facility] Comment on above: Order Comment: Umesh baugh Type: BLOOD SPECIMENOrdering Facility: [facility] Address: [address] [place] [address] Performed By: #### 1 9123-9, 50728-2 ####[facility] HOSPITALGUMEA [id number] [place] [address] [place] ALT [Catalytic activity/Vol] 8 U/L Normal 7-38 [facility] Comment on above: Order Comment: Abdouli men Type: BLOOD SPECIMENOrdering Facility: [facility] Address: [address] [place] [address] Performed By: #### 1 9123-9, 17362-5 ####[facility] HOSPITALNCLIA [id number] [place] [address] [place] Anion gap [Moles/Vol] 14 mmol/L Normal 8-15 [facility] Comment on above: Order Comment: Speci men Type: BLOOD SPECIMENOrdering Facility: [facility] Address: [address] [place] [address] Performed By: #### 1 9123-9, 76935-6 ####[facility] HOSPITALNCLIA [id number] [place] [address] [place] AST [Catalytic activity/Vol] 17 U/L Normal 13-35 [facility] Comment on above: Order Comment: Speci men Type: BLOOD SPECIMENOrdering Facility: [facility] Address: [address] [place] [address] Performed By: #### 1 9123-9, 67835-2 ####[facility] HOSPITALNCLIA [id number] [place] [address] [place] Bilirubin [Mass/Vol] 0.3 mg/dL Normal 0.2-1.3 [facility] Comment on above: Order Comment: Speci men Type: BLOOD SPECIMENOrdering Facility: [facility] Address: [address] [place] [address] Performed By: #### 1 9123-9, 24539-9 ####[facility] DAYTONLIA [id number] [place] [address] [place] Calcium [Mass/Vol] 9.2 mg/dL Normal 8.5-10.2 [facility] Comment on above: Order Comment: Speci men Type: BLOOD SPECIMENOrdering Facility: [facility] Address: [address] [place], [place] [address] Performed By: #### 1 9123-9, 00327-8 ####[facility] HOSPITALNCLIA [id number] [place] [address] [place] Chloride [Moles/Vol] 106 mmol/L Normal 98-107 [facility] Comment on above: Order Comment: Speci men Type: BLOOD SPECIMENOrdering Facility: [facility] Address: [address] [place] [address] Performed By: #### 1 9123-9, 47181-0 ####[facility] BISHNUWNCLIA [id number] [place] [address] [place] CO2 [Moles/Vol] 20 mmol/L Low 22-30 [facility] Comment on above: Order Comment: Speci men Type: BLOOD SPECIMENOrdering Facility: [facility] Address: [address] [place] [address] Performed By: #### 1 9123-9, 79464-1 ####[facility] HOSPITALNCLIA [id number] [address] [place] Creatinine [Mass/Vol] 0.69 mg/dL Normal 0.58-0.96 [facility] Comment on above: Order Comment: Speci men Type: BLOOD SPECIMENOrdering Facility: [facility] Address: [address] [place] [address] Performed By: #### 1 9123-9, 33758-1 ####[facility] HOSPITALGUMEA [id number] [address] [place] eGFRcr SerPlBld CKD-EPI 2020 96 mL/min/1.73m??? Normal >=60 [facility] Comment on above: Order Comment: Speci men Type: BLOOD SPECIMENOrdering Facility: [facility] Address: [address] [place] [address] Result Comment: Sana mated Glomerular Filtration Rate [...] actual GFR. Performed By: #### 1 9123-9, 04225-5 ####[facility] HOSPITALNCLIA [id number] [place] [address] [place] Glucose [Mass/Vol] 141 mg/dL High 74-99 [facility] Comment on above: Order Comment: Speci men Type: BLOOD SPECIMENOrdering Facility: [facility] Address: [address] [place], [place] [address] Result Comment: The [place] Diabetes Association (ADA) provides guidance for cutoff [...] Standards of Medical Care in Diabetes 2016, [place] [employer]. Diabetes Care. 2016.39(Suppl 1). Performed By: #### 1 9123-9, 72501-5 ####[facility] [id number] [place] [address] [place] Potassium [Moles/Vol] 2.6 mmol/L Low 3.7-5.1 [facility] Comment on above: Order Comment: Speci men Type: BLOOD SPECIMENOrdering Facility: [facility] Address: [address] [place] [address] Performed By: #### 1 9123-9, 00195-1 ####[facility] [id number] [place] [address] [place] Protein [Mass/Vol] 6.9 g/dL Normal 6.3-8.0 [facility] Comment on above: Order Comment: Speci men Type: BLOOD SPECIMENOrdering Facility: [facility] Address: [address] [place], [place] [address] Performed By: #### 1 9123-9, 00557-9 ####[facility] MILLWNCLIA [id number] [place] [address] [place] Sodium [Moles/Vol] 140 mmol/L Normal 136-144 [facility] Comment on above: Order Comment: Speci men Type: BLOOD SPECIMENOrdering Facility: [facility] Address: [address] [place] [address] Performed By: #### 1 9123-9, 97169-3 ####[facility] DAYTONLIA [id number] [place] [address] [place] Urea nitrogen [Mass/Vol] 20 mg/dL Normal 7-21 [facility] Comment on above: Order Comment: Speci men Type: BLOOD SPECIMENOrdering Facility: [facility] Address: [address] [place] [address] Performed By: #### 1 9123-9, 02748-4 ####[facility] [id number] [place] [address] [place] MAGNESIUMon 11-18-2024 Magnesium [Mass/Vol] 1.8 mg/dL 1.7 - 2 .3 mg/dL [facility] Magnesium SerPl-mCncon 11-18 Magnesium [Mass/Vol] 1.8 mg/dL Normal 1.7-2.3 [facility] Comment on above: Order Comment: Speci men Type: BLOOD SPECIMENOrdering Facility: [facility] Address: [address] [place] [address] Performed By: #### 1 9123-9, 53134-3 ####[facility] HOSPITALNCLIA [id number] [place] [address] [place] Magnesium [Mass/Vol]on 11-18 Interpretation and review of laboratory results Normal [facility] No Panel InformationOrdered By: Merlyn Veloz on 11-18-2024 [facility] PT panel Coag (PPP)on 2024 INR Coag (PPP) [Relative time] 1.0 {INR} 0.9 - 1.3 [facility] Comment on above: Vitamin K Antagonist (VKA) Therapeutic Range: INR 2 to 3 (Target INR of 2.5) Note: For patients treated with VKA drugs, such as warfarin, the [place] [employer] 2012 Guideline recommends [...] to 3.5 (target INR of 3). Summer GH, et al. Chest 2012, 141:7S-47S Jermain RA, et al. [facility] 2017, 70: 252-289 Interpretation and review of laboratory results Normal [facility] PT Coag (PPP) [Time] 10.4 [facility] INR Coag (PPP) [Relative time] 1.0 {INR} Normal 0.9-1.3 [facility] Comment on above: Order Comment: Speci men Type: BLOOD SPECIMENOrdering Facility: [facility] Address: [address] [place] [address] Result Comment: Edwige min K Antagonist (VKA) Therapeutic Range: INR 2 to 3 (Target INR of 2.5)Note: For patients treated with VKA drugs, such as warfarin, the [place] [employer] 2012 Guideline recommends [...] al. Chest 2012, 141:7S-47SJermain RA, et al. J[facility] 2017, 70: 252-289 Performed By: #### 3 4528-0 ####[facility]AMR[facility] RUFFINWNCLIA [id number] [place] [address] [place] PT Coag (PPP) [Time] 10.4 s Normal <13.1 [facility] Comment on above: Order Comment: Speci men Type: BLOOD SPECIMENOrdering Facility: [facility] Address: [address] [place] [address] Performed By: #### 3 4528-0 ####[facility] [id number] [place], [place] [id number] [place] [address] [place] CNPNon 11-13-2024 CNPN Normal [facility] CNPNon 11-11-2024 CNPN Normal [facility] Basic Metabolic Profile (BMP )on 11-09-2024 BUN Normal 4-19 [facility] Comment on above: Result Comment: Canc elled via OM: Order cancelled - Patient discharged Performed By: #### L 100.0500, L500.2500 ####[facility] [address] [place], [address] BUN/CRE Normal 10-20 [facility] Comment on above: Result Comment: Canc elled via OM: Order cancelled - Patient discharged Performed By: #### L 100.0500, L500.2500 ####[facility] [address] [place], [address] Calcium Normal 7.6-11.0 [facility] Comment on above: Result Comment: Canc elled via OM: Order cancelled - Patient discharged Performed By: #### L 100.0500, L500.2500 ####[facility] [address] [place], [address] CL Normal 98-108 [facility] Comment on above: Result Comment: Canc elled via OM: Order cancelled - Patient discharged Performed By: #### L 100.0500, L500.2500 ####[facility] [address] [place], [address] CO2 Normal 21.0-32.0 [facility] Comment on above: Result Comment: Canc elled via OM: Order cancelled - Patient discharged Performed By: #### L 100.0500, L500.2500 ####[facility] [address] [place], [address] CREAT,SERUM Normal 0.70-1.20 [facility] Comment on above: Result Comment: Canc elled via OM: Order cancelled - Patient discharged Performed By: #### L 100.0500, L500.2500 ####[facility] [address] [place], [address] eGFR Normal >60 [facility] Comment on above: Result Comment: Canc elled via OM: Order cancelled - Patient discharged Performed By: #### L 100.0500, L500.2500 ####[facility] [address] [place], [address] GAP Normal 5-15 [facility] Comment on above: Result Comment: Canc elled via OM: Order cancelled - Patient discharged Performed By: #### L 100.0500, L500.2500 ####[facility] [address] [place], [address] GLU Normal 70-99 [facility] Comment on above: Result Comment: Canc elled via OM: Order cancelled - Patient discharged Performed By: #### L 100.0500, L500.2500 ####[facility] [address] [place], [address] Potassium Normal 3.3-5.1 [facility] Comment on above: Result Comment: Canc elled via OM: Order cancelled - Patient discharged Performed By: #### L 100.0500, L500.2500 ####[facility] [address] [place], [address] Basic Metabolic Profile (BMP) Normal 133-145 [facility] Comment on above: Result Comment: Canc elled via OM: Order cancelled - Patient discharged Performed By: #### L 100.0500, L500.2500 ####[facility] [address] [place], [address] CBC-Complete Blood Cnt No Di ffon 11-09-2024 HCT Normal 37-47 [facility] Comment on above: Result Comment: Canc elled via OM: Order cancelled - Patient discharged Performed By: #### L 100.0500, L500.2500 ####[facility] [address] [place], [address] HGB Normal 12.0-15.0 [facility] Comment on above: Result Comment: Canc elled via OM: Order cancelled - Patient discharged Performed By: #### L 100.0500, L500.2500 ####[facility] [address] [place], [address] MCH Normal 27.0-32.0 [facility] Comment on above: Result Comment: Canc elled via OM: Order cancelled - Patient discharged Performed By: #### L 100.0500, L500.2500 ####[facility] [address] [place], [address] MCHC Normal 32-36 [facility] Comment on above: Result Comment: Canc elled via OM: Order cancelled - Patient discharged Performed By: #### L 100.0500, L500.2500 ####[facility] [address] [place], [address] MCV Normal 81-99 [facility] Comment on above: Result Comment: Canc elled via OM: Order cancelled - Patient discharged Performed By: #### L 100.0500, L500.2500 ####[facility] [address] [place], [address] PLT Normal 150-450 [facility] Comment on above: Result Comment: Canc elled via OM: Order cancelled - Patient discharged Performed By: #### L 100.0500, L500.2500 ####[facility] [address] [place], [address] RBC Normal 4.2-5.4 [facility] Comment on above: Result Comment: Canc elled via OM: Order cancelled - Patient discharged Performed By: #### L 100.0500, L500.2500 ####[facility] [address] [place], [address] RDW CV Normal 11.6-14.6 [facility] Comment on above: Result Comment: Canc elled via OM: Order cancelled - Patient discharged Performed By: #### L 100.0500, L500.2500 ####[facility] [address] [place], [address] RDW SD Normal 35.1-43.9 [facility] Comment on above: Result Comment: Canc elled via OM: Order cancelled - Patient discharged Performed By: #### L 100.0500, L500.2500 ####[facility] [address] [place], [address] WBC Normal 4.4-11.0 [facility] Comment on above: Result Comment: Canc elled via OM: Order cancelled - Patient discharged Performed By: #### L 100.0500, L500.2500 ####[facility] [address] [place], [address] Absolute lymphocyte countOrd ered By: Annette Mendez on 11-08-2024 Lymphocytes Auto (Unsp spec) [#/Vol] 1.82 10*3/uL 0.83-4.51 [facility] Absolute neutrophil countOrd ered By: Annette Mendez on 11-08-2024 Neutrophils (Bld) [#/Vol] 9.5 10*3/uL High 2.0-7.7 [facility] Anion gap in Serum or Plasma Ordered By: Annette Mendez on 11-08-2024 Anion gap [Moles/Vol] 9 mmol/L 08-08 [facility] Automated lymphocyte count a s percentage of total leukocytesOrdered By: Annette Mendez on 11-08-2024 Lymphocytes/100 WBC Auto (Unsp spec) 15.0 % Low 19-41 [facility] BUN/creatinine ratioOrdered By: Annette Mendez on 11-08-2024 Urea nitrogen/Creatinine [Mass ratio] 27.7 mg/mg High 10-20 [facility] Basophil percentageOrdered B y: Annette Mendez on 11-08-2024 Basophils/100 WBC (Bld) 0.2 % 0-1 [facility] Bilirubin, totalOrdered By: Annette Mendez on 11-08-2024 Bilirubin [Mass/Vol] 0.31 mg/dL 0.00-1.30 [facility] CBC W/Diff, Automatedon 10-25 Absolute Lymph 1.82 X10 3/uL Normal 0.83-4.51 [facility] Comment on above: Performed By: #### L 500.4050, L300.3900, L100.0100 ####[facility] [address] [place], [address] Absolute Neut 9.5 X10 3/uL High 2.0-7.7 [facility] Comment on above: Performed By: #### L 500.4050, L300.3900, L100.0100 ####[facility] [address] [place], [address] Basophils/100 WBC (Bld) 0.2 % Normal 0-1 [facility] Comment on above: Performed By: #### L 500.4050, L300.3900, L100.0100 ####[facility] [address] [place], [address] Eosinophils/100 WBC (Bld) 0.0 % Normal 0-5 [facility] Comment on above: Performed By: #### L 500.4050, L300.3900, L100.0100 ####[facility] [address] [place], [address] Erythrocyte distribution width (RBC) [Ratio] 13.8 % Normal 11.6-14.6 [facility] Comment on above: Performed By: #### L 500.4050, L300.3900, L100.0100 ####[facility] [address] [place], [address] Hematocrit (Bld) [Volume fraction] 27.5 % Low 37-47 [facility] Comment on above: Performed By: #### L 500.4050, L300.3900, L100.0100 ####[facility] [address] [place], [address] Hemoglobin (Bld) [Mass/Vol] 9.1 g/dL Low 12.0-15.0 [facility] Comment on above: Performed By: #### L 500.4050, L300.3900, L100.0100 ####[facility] [address] [place], [address] IG% 0.700 Normal 0.0-0.9 [facility] Comment on above: Result Comment: IG% - Immature Granulocytes (promyelocytes, myelocytes andmetamyelocytes) > 1% indicates that a LEFT SHIFT is Present. Performed By: #### L 500.4050, L300.3900, L100.0100 ####[facility] [address] [place], [address] Lymphocytes/100 WBC (Bld) 15.0 % Low 19-41 [facility] Comment on above: Performed By: #### L 500.4050, L300.3900, L100.0100 ####[facility] [address] [place], [address] MCH (RBC) [Entitic mass] 29.8 pg Normal 27.0-32.0 [facility] Comment on above: Performed By: #### L 500.4050, L300.3900, L100.0100 ####[facility] [address] [place], [address] MCHC (RBC) [Mass/Vol] 33.1 g/dL Normal 32-36 [facility] Comment on above: Performed By: #### L 500.4050, L300.3900, L100.0100 ####[facility] [address] [place], [address] MCV (RBC) [Entitic vol] 90.2 fL Normal 81-99 [facility] Comment on above: Performed By: #### L 500.4050, L300.3900, L100.0100 ####[facility] [address] [place], [address] Monocytes/100 WBC (Bld) 6.4 % Normal 0-10 [facility] Comment on above: Performed By: #### L 500.4050, L300.3900, L100.0100 ####[facility] [address] [place], [address] Neutrophils/100 WBC (Bld) 77.7 % High 47-70 [facility] Comment on above: Performed By: #### L 500.4050, L300.3900, L100.0100 ####[facility] [address] [place], [address] Nucleated RBC (Bld) [#/Vol] 0 10*3/uL Normal 0-5 [facility] Comment on above: Performed By: #### L 500.4050, L300.3900, L100.0100 ####[facility] [address] [place], [address] Platelet mean volume (Bld) [Entitic vol] 9.2 fL Normal 6.2-12.0 [facility] Comment on above: Performed By: #### L 500.4050, L300.3900, L100.0100 ####[facility] [address] [place], [address] Platelets (Bld) [#/Vol] 228 10*3/uL Normal 150-450 [facility] Comment on above: Performed By: #### L 500.4050, L300.3900, L100.0100 ####[facility] [address] [place], [address] RBC (Bld) [#/Vol] 3.05 10*6/uL Low 4.2-5.4 [facility] Comment on above: Performed By: #### L 500.4050, L300.3900, L100.0100 ####[facility] [address] [place], [address] RDW SD 45.4 fl High 35.1-43.9 [facility] Comment on above: Performed By: #### L 500.4050, L300.3900, L100.0100 ####[facility] [address] [place], [address] WBC (Bld) [#/Vol] 12.2 10*3/uL High 4.4-11.0 [facility] Comment on above: Performed By: #### L 500.4050, L300.3900, L100.0100 ####[facility] [address] [place], [address] CNPNon 11-08-2024 CNPN Normal [facility] Carbon dioxide, total [Moles /volume] in Central venous bloodOrdered By: Annette Mendez on 11-08-2024 CO2 [Moles/Vol] 22.4 mmol/L 21.0-32.0 [facility] Chloride assayOrdered By: Ramses Mendez on 11-08-2024 Chloride [Moles/Vol] 109 mmol/L High 98-108 [facility] Comprehensive Metabolic Prof ilon 11-08-2024 Albumin [Mass/Vol] 3.2 g/dL Low 3.4-4.8 [facility] Comment on above: Performed By: #### L 500.4050, L300.3900, L100.0100 ####[facility] [address] [place], [address] Albumin/Globulin [Mass ratio] 1.6 {ratio} Normal 0.9-2.4 [facility] Comment on above: Performed By: #### L 500.4050, L300.3900, L100.0100 ####[facility] [address] [place], [address] ALK PHOS 52 U/L Normal 35-104 [facility] Comment on above: Performed By: #### L 500.4050, L300.3900, L100.0100 ####[facility] [address] [place], [address] ALT [Catalytic activity/Vol] 10 U/L Normal <=34 [facility] Comment on above: Performed By: #### L 500.4050, L300.3900, L100.0100 ####[facility] [address] [place], [address] AST [Catalytic activity/Vol] 22 U/L Normal <=31 [facility] Comment on above: Performed By: #### L 500.4050, L300.3900, L100.0100 ####[facility] [address] [place], [address] Bilirubin [Mass/Vol] 0.31 mg/dL Normal 0.00-1.30 [facility] Comment on above: Performed By: #### L 500.4050, L300.3900, L100.0100 ####[facility] [address] [place], [address] BUN/CRE 27.7 RATIO High 10-20 [facility] Comment on above: Performed By: #### L 500.4050, L300.3900, L100.0100 ####[facility] [address] [place], [address] Calcium [Mass/Vol] 8.2 mg/dL Normal 7.6-11.0 [facility] Comment on above: Performed By: #### L 500.4050, L300.3900, L100.0100 ####[facility] [address] [place], [address] Chloride [Moles/Vol] 109 mmol/L High 98-108 [facility] Comment on above: Performed By: #### L 500.4050, L300.3900, L100.0100 ####[facility] [address] [place], [address] CO2 [Moles/Vol] 22.4 mmol/L Normal 21.0-32.0 [facility] Comment on above: Performed By: #### L 500.4050, L300.3900, L100.0100 ####[facility] [address] [place], [address] Creatinine [Mass/Vol] 0.53 mg/dL Low 0.70-1.20 [facility] Comment on above: Performed By: #### L 500.4050, L300.3900, L100.0100 ####[facility] [address] [place], [address] ECRCL 44.68 ml/min Low 50-250 [facility] Comment on above: Performed By: #### L 500.4050, L300.3900, L100.0100 ####[facility] [address] [place], [address] GAP 9 Normal 5-15 [facility] Comment on above: Performed By: #### L 500.4050, L300.3900, L100.0100 ####[facility] [address] [place], [address] GFR/1.73 sq M.predicted among non-blacks MDRD (S/P/Bld) [Vol rate/Area] 103 mL/min/{1.73_m2} Normal >60 [facility] Comment on above: Result Comment: mL/m in/1.73m2 CKD-EPI Creatinine Equation (2020) Performed By: #### L 500.4050, L300.3900, L100.0100 ####[facility] [address] [place], [address] Globulin (S) [Mass/Vol] 2.0 g/dL Low 2.2-4.2 [facility] Comment on above: Performed By: #### L 500.4050, L300.3900, L100.0100 ####[facility] [address] [place], [address] Glucose [Mass/Vol] 98 mg/dL Normal 70-99 [facility] Comment on above: Performed By: #### L 500.4050, L300.3900, L100.0100 ####[facility] [address] [place], [address] Potassium [Moles/Vol] 3.8 mmol/L Normal 3.3-5.1 [facility] Comment on above: Performed By: #### L 500.4050, L300.3900, L100.0100 ####[facility] [address] [place], [address] Sodium [Moles/Vol] 140 mmol/L Normal 133-145 [facility] Comment on above: Performed By: #### L 500.4050, L300.3900, L100.0100 ####[facility] [address] [place], [address] T PROT 5.3 g/dL Low 5.9-8.4 [facility] Comment on above: Performed By: #### L 500.4050, L300.3900, L100.0100 ####[facility] [address] [place], [address] Urea nitrogen [Mass/Vol] 15 mg/dL Normal 4-19 [facility] Comment on above: Performed By: #### L 500.4050, L300.3900, L100.0100 ####[facility] [address] [place], [address] Discharge Instructionon 10-25 Discharge Instruction Normal [facility] Eosinophil percentageOrdered By: Annette Mendez on 11-08-2024 Eosinophils/100 WBC (Bld) 0.0 % 0-5 [facility] Erythrocyte distribution wid th ratioOrdered By: Annette Mendez on 11-08-2024 Erythrocyte distribution width (RBC) [Ratio] 13.8 % 11.6-14.6 [facility] Erythrocyte distribution wid th standard deviationOrdered By: Annette Mendez on 11-08-2024 Erythrocyte distribution width (RBC) [Ratio] 45.4 fl High 35.1-43.9 [facility] Glomerular filtration rate ( GFR) estimation/1.73 sq m using serum, plasma, or whole bOrdered By: Annette Mendez on 11-08-2024 GFR/1.73 sq M.predicted among non-blacks MDRD (S/P/Bld) [Vol rate/Area] 103 mL/min/{1.73_m2} >60 [facility] Comment on above: mL/min/1.73m2 CKD-EP I Creatinine Equation (2020) Hematocrit Auto (Bld) [Volum e fraction]Ordered By: Annette Mendez on 11-08-2024 Hematocrit (Bld) [Volume fraction] 27.5 % Low 37-47 [facility] Hemoglobin measurementOrdere d By: Annette Mendez on 11-08-2024 Hemoglobin (Bld) [Mass/Vol] 9.1 g/dL Low 12.0-15.0 [facility] Immature granulocytes/100 WB C Auto (Bld)Ordered By: Annette Mendez on 11-08-2024 Immature granulocytes/100 WBC (Bld) 0.700 % 0.0-0.9 [facility] Comment on above: IG% - Immature Granu locytes (promyelocytes, myelocytes and metamyelocytes) > 1% indicates that a LEFT SHIFT is Present. International normalized rat io (INR) calculationOrdered By: Annette Mendez on 11-08-2024 INR Coag (Bld) [Relative time] 1.1 {INR} [facility] Laboratory - Chemistry and C hemistry - challengeOrdered By: Annette Mendez on 11-08-2024 AST [Catalytic activity/Vol] 22 U/L <32 [facility] MCV (mean corpuscular volume ) determinationOrdered By: Annette Mendez on 11-08-2024 MCV (RBC) [Entitic vol] 90.2 fL 81-99 [facility] Mean corpuscular hemoglobin (MCH) determinationOrdered By: Annette Mendez on 11-08-2024 MCH (RBC) [Entitic mass] 29.8 pg 27.0-32.0 [facility] Mean corpuscular hemoglobin concentration (MCHC) determinationOrdered By: Annette Mendez on 11-08-2024 MCHC (RBC) [Mass/Vol] 33.1 g/dL 32-36 [facility] Mean platelet volume determi nationOrdered By: Annette Mendez on 11-08-2024 Platelet mean volume (Bld) [Entitic vol] 9.2 fL 6.2-12.0 [facility] Monocyte percentageOrdered B y: Annette Mendez on 11-08-2024 Monocytes/100 WBC (Bld) 6.4 % 0-10 [facility] Neutrophil percentageOrdered By: Annette Mendez on 11-08-2024 Neutrophils/100 WBC (Bld) 77.7 % High 47-70 [facility] No Panel InformationOrdered By: Annette Mendez on 11-08-2024 22 U/L <32 [facility] Nucleated red blood cell per centageOrdered By: Annette Mendez on 08-15-2025 Nucleated RBC/100 WBC (Bld) [Ratio] 0 % 0-5 [facility] Platelet countOrdered By: Ramses Mendez on 11-08-2024 Platelets (Bld) [#/Vol] 228 10*3/uL 150-450 [facility] Potassium measurement (mass/ volume)Ordered By: Annette Mendez on 11-08-2024 Potassium (Unsp spec) [Mass/Vol] 3.8 mmol/L 3.3-5.1 [facility] Prothrombin Time w/INRon INR Coag (PPP) [Relative time] 1.1 {INR} Normal [facility] Comment on above: Performed By: #### L 500.4050, L300.3900, L100.0100 ####[facility] [address] [place], [address] PT Coag (PPP) [Time] 13.9 s Normal 11.7-14.9 [facility] Comment on above: Performed By: #### L 500.4050, L300.3900, L100.0100 ####[facility] [address] [place], [address] Prothrombin timeOrdered By: Annette Mendez on 11-08-2024 PT Coag (PPP) [Time] 13.9 s 11.7-14.9 [facility] RBC Auto (Bld) [#/Vol]Ordere d By: Annette Mendez on 11-08-2024 RBC (Bld) [#/Vol] 3.05 10*6/uL Low 4.2-5.4 [facility] Serum creatinine measurement (mass/volume)Ordered By: Annette Mendez on 11-08-2024 Creatinine [Mass/Vol] 0.53 mg/dL Low 0.70-1.20 [facility] Serum globulin measurementOr dered By: Annette Mendez on 11-08-2024 Globulin (S) [Mass/Vol] 2.0 g/dL Low 2.2-4.2 [facility] Serum glucose measurement (m ass/volume)Ordered By: Annette Mendez on 11-08-2024 Glucose [Mass/Vol] 98 mg/dL 70-99 [facility] Serum or plasma alanine ramirez otransferase (ALT) measurementOrdered By: Annette Mendez on 11-08-2024 ALT [Catalytic activity/Vol] 10 U/L <35 [facility] Serum or plasma albumin renetta urement (mass/volume)Ordered By: Annette Mendez on 11-08-2024 Albumin [Mass/Vol] 3.2 g/dL Low 3.4-4.8 [facility] Serum or plasma albumin/glob ulin mass ratioOrdered By: Annette Mendez on 11-08-2024 Albumin/Globulin [Mass ratio] 1.6 {ratio} 0.9-2.4 [facility] Serum or plasma alkaline marquez sphatase measurementOrdered By: Annette Mendez on 11-08-2024 ALP [Catalytic activity/Vol] 52 U/L 35-104 [facility] Serum or plasma calcium renetta urement (mass/volume)Ordered By: Annette Mendez on 11-08-2024 Calcium [Mass/Vol] 8.2 mg/dL 7.6-11.0 [facility] Serum or plasma urea nitroge n measurement (mass/volume)Ordered By: Annette Mendez on 11-08-2024 Urea nitrogen [Mass/Vol] 15 mg/dL 4-19 [facility] Sodium levelOrdered By: Sparkle Mendez on 11-08-2024 Sodium [Moles/Vol] 140 mmol/L 133-145 [facility] Total proteinOrdered By: Daiana Mendez on 11-08-2024 Protein [Mass/Vol] 5.3 g/dL Low 5.9-8.4 [facility] White blood cell (WBC) count Ordered By: Annette Mendez on 11-08-2024 WBC (Bld) [#/Vol] 12.2 10*3/uL High 4.4-11.0 [facility] Abdomen/Pelvis W IV Cont ONL Yon 11-07-2024 Abdomen/Pelvis W IV Cont ONLY Normal [facility] Absolute lymphocyte countOrd ered By: Lluvia Vann on 11-07-2024 Lymphocytes Auto (Unsp spec) [#/Vol] 1.12 10*3/uL 0.83-4.51 [facility] Absolute neutrophil countOrd ered By: Lluvia Vann on 11-07-2024 Neutrophils (Bld) [#/Vol] 18.0 10*3/uL High 2.0-7.7 [facility] Anion gap in Serum or Plasma Ordered By: Lluvia Vann on 11-07-2024 Anion gap [Moles/Vol] 14 mmol/L 5-15 [facility] Automated lymphocyte count a s percentage of total leukocytesOrdered By: Lluvia Vann on 11-07-2024 Lymphocytes/100 WBC Auto (Unsp spec) 5.6 % Low 19-41 [facility] BUN/creatinine ratioOrdered By: Lluvia Vann on 11-07-2024 Urea nitrogen/Creatinine [Mass ratio] 24.9 mg/mg High 10-20 [facility] Basophil percentageOrdered B y: Lluvia Vann on 11-07-2024 Basophils/100 WBC (Bld) 0.2 % 0-1 [facility] Bilirubin Test strip Ql (U)O rdered By: Lluvia Vann on 11-07-2024 Bilirubin Ql (U) Negative Negative [facility] Bilirubin, totalOrdered By: Lluvia Vann on 11-07-2024 Bilirubin [Mass/Vol] 0.19 mg/dL 0.00-1.30 [facility] CBC W/Diff, Automatedon 10-25 Absolute Lymph 1.12 X10 3/uL Normal 0.83-4.51 [facility] Comment on above: Performed By: #### L 501.2450, L100.0100, L503.6005, L500.4050 ####[facility] [address] [place], [address] Absolute Neut 18.0 X10 3/uL High 2.0-7.7 [facility] Comment on above: Performed By: #### L 501.2450, L100.0100, L503.6005, L500.4050 ####[facility] [address] [place], [address] Basophils/100 WBC (Bld) 0.2 % Normal 0-1 [facility] Comment on above: Performed By: #### L 501.2450, L100.0100, L503.6005, L500.4050 ####[facility] [address] [place], [address] Eosinophils/100 WBC (Bld) 0.0 % Normal 0-5 [facility] Comment on above: Performed By: #### L 501.2450, L100.0100, L503.6005, L500.4050 ####[facility] [address] [place], [address] Erythrocyte distribution width (RBC) [Ratio] 13.3 % Normal 11.6-14.6 [facility] Comment on above: Performed By: #### L 501.2450, L100.0100, L503.6005, L500.4050 ####[facility] [address] [place], [address] Hematocrit (Bld) [Volume fraction] 30.3 % Low 37-47 [facility] Comment on above: Performed By: #### L 501.2450, L100.0100, L503.6005, L500.4050 ####[facility] [address] [place], [address] Hemoglobin (Bld) [Mass/Vol] 10.5 g/dL Low 12.0-15.0 [facility] Comment on above: Performed By: #### L 501.2450, L100.0100, L503.6005, L500.4050 ####[facility] [address] [place], [address] IG% 0.600 Normal 0.0-0.9 [facility] Comment on above: Result Comment: IG% - Immature Granulocytes (promyelocytes, myelocytes andmetamyelocytes) > 1% indicates that a LEFT SHIFT is Present. Performed By: #### L 501.2450, L100.0100, L503.6005, L500.4050 ####[facility] [address] [place], [address] Lymphocytes/100 WBC (Bld) 5.6 % Low 19-41 [facility] Comment on above: Performed By: #### L 501.2450, L100.0100, L503.6005, L500.4050 ####[facility] [address] [place], [address] MCH (RBC) [Entitic mass] 30.6 pg Normal 27.0-32.0 [facility] Comment on above: Performed By: #### L 501.2450, L100.0100, L503.6005, L500.4050 ####[facility] [address] [place], [address] MCHC (RBC) [Mass/Vol] 34.7 g/dL Normal 32-36 [facility] Comment on above: Performed By: #### L 501.2450, L100.0100, L503.6005, L500.4050 ####[facility] [address] [place], [address] MCV (RBC) [Entitic vol] 88.3 fL Normal 81-99 [facility] Comment on above: Performed By: #### L 501.2450, L100.0100, L503.6005, L500.4050 ####[facility] [address] [place], [address] Monocytes/100 WBC (Bld) 3.3 % Normal 0-10 [facility] Comment on above: Performed By: #### L 501.2450, L100.0100, L503.6005, L500.4050 ####[facility] [address] [place], [address] Neutrophils/100 WBC (Bld) 90.3 % High 47-70 [facility] Comment on above: Performed By: #### L 501.2450, L100.0100, L503.6005, L500.4050 ####[facility] [address] [place], [address] Nucleated RBC (Bld) [#/Vol] 0 10*3/uL Normal 0-5 [facility] Comment on above: Performed By: #### L 501.2450, L100.0100, L503.6005, L500.4050 ####[facility] [address] [place], [address] Platelet mean volume (Bld) [Entitic vol] 9.5 fL Normal 6.2-12.0 [facility] Comment on above: Performed By: #### L 501.2450, L100.0100, L503.6005, L500.4050 ####[facility] [address] [place], [address] Platelets (Bld) [#/Vol] 283 10*3/uL Normal 150-450 [facility] Comment on above: Performed By: #### L 501.2450, L100.0100, L503.6005, L500.4050 ####[facility] [address] [place], [address] RBC (Bld) [#/Vol] 3.43 10*6/uL Low 4.2-5.4 [facility] Comment on above: Performed By: #### L 501.2450, L100.0100, L503.6005, L500.4050 ####[facility] [address] [place], [address] RDW SD 42.7 fl Normal 35.1-43.9 [facility] Comment on above: Performed By: #### L 501.2450, L100.0100, L503.6005, L500.4050 ####[facility] [address] [place], [address] WBC (Bld) [#/Vol] 19.9 10*3/uL High 4.4-11.0 [facility] Comment on above: Performed By: #### L 501.2450, L100.0100, L503.6005, L500.4050 ####[facility] [address] [place], [address] CDIFF (PCR)on 11-07-2024 CDIFF Normal [facility] Comment on above: Performed By: #### M 100.637, M100.6795, M100.6796 ####[facility] [address] [place], [address] CNPNon 11-07-2024 CNPN Normal [facility] Carbon dioxide, total [Moles /volume] in Central venous bloodOrdered By: Lluvia Vann on 11-07-2024 CO2 [Moles/Vol] 21.4 mmol/L 21.0-32.0 [facility] Chloride assayOrdered By: Nitesh Vann on 11-07-2024 Chloride [Moles/Vol] 104 mmol/L 98-108 [facility] Clostridium Diff Toxin/Agon 11-07-2024 CDIFF (EIA) Normal [facility] Comment on above: Performed By: #### M 100.637, M100.6795, M100.6796 ####[facility] [address] [place], [address] Clostridium difficile detect ion by polymerase chain reactionOrdered By: Annette Mendez on 11-07-2024 C. difficile DNA SAUNDRA+probe Ql (Unsp spec) [facility] Comprehensive Metabolic Prof ilon 11-07-2024 Albumin [Mass/Vol] 3.8 g/dL Normal 3.4-4.8 [facility] Comment on above: Performed By: #### L 501.2450, L100.0100, L503.6005, L500.4050 ####[facility] [address] [place], [address] Albumin/Globulin [Mass ratio] 1.4 {ratio} Normal 0.9-2.4 [facility] Comment on above: Performed By: #### L 501.2450, L100.0100, L503.6005, L500.4050 ####[facility] [address] [place], [address] ALK PHOS 74 U/L Normal 35-104 [facility] Comment on above: Performed By: #### L 501.2450, L100.0100, L503.6005, L500.4050 ####[facility] [address] [place], [address] ALT [Catalytic activity/Vol] 10 U/L Normal <=34 [facility] Comment on above: Performed By: #### L 501.2450, L100.0100, L503.6005, L500.4050 ####[facility] [address] [place], [address] AST [Catalytic activity/Vol] 23 U/L Normal <=31 [facility] Comment on above: Performed By: #### L 501.2450, L100.0100, L503.6005, L500.4050 ####[facility] [address] [place], [address] Bilirubin [Mass/Vol] 0.19 mg/dL Normal 0.00-1.30 [facility] Comment on above: Performed By: #### L 501.2450, L100.0100, L503.6005, L500.4050 ####[facility] [address] [place], [address] BUN/CRE 24.9 RATIO High 10-20 [facility] Comment on above: Performed By: #### L 501.2450, L100.0100, L503.6005, L500.4050 ####[facility] [address] [place], [address] Calcium [Mass/Vol] 8.7 mg/dL Normal 7.6-11.0 [facility] Comment on above: Performed By: #### L 501.2450, L100.0100, L503.6005, L500.4050 ####[facility] [address] [place], [address] Chloride [Moles/Vol] 104 mmol/L Normal 98-108 [facility] Comment on above: Performed By: #### L 501.2450, L100.0100, L503.6005, L500.4050 ####[facility] [address] [place], [address] CO2 [Moles/Vol] 21.4 mmol/L Normal 21.0-32.0 [facility] Comment on above: Performed By: #### L 501.2450, L100.0100, L503.6005, L500.4050 ####[facility] [address] [place], [address] Creatinine [Mass/Vol] 0.58 mg/dL Low 0.70-1.20 [facility] Comment on above: Performed By: #### L 501.2450, L100.0100, L503.6005, L500.4050 ####[facility] [address] [place], [address] ECRCL 43.16 ml/min Low 50-250 [facility] Comment on above: Performed By: #### L 501.2450, L100.0100, L503.6005, L500.4050 ####[facility] [address] [place], [address] GAP 14 Normal 5-15 [facility] Comment on above: Performed By: #### L 501.2450, L100.0100, L503.6005, L500.4050 ####[facility] [address] [place], [address] GFR/1.73 sq M.predicted among non-blacks MDRD (S/P/Bld) [Vol rate/Area] 100 mL/min/{1.73_m2} Normal >60 [facility] Comment on above: Result Comment: mL/m in/1.73m2 CKD-EPI Creatinine Equation (2020) Performed By: #### L 501.2450, L100.0100, L503.6005, L500.4050 ####[facility] [address] [place], [address] Globulin (S) [Mass/Vol] 2.7 g/dL Normal 2.2-4.2 [facility] Comment on above: Performed By: #### L 501.2450, L100.0100, L503.6005, L500.4050 ####[facility] [address] [place], [address] Glucose [Mass/Vol] 145 mg/dL High 70-99 [facility] Comment on above: Performed By: #### L 501.2450, L100.0100, L503.6005, L500.4050 ####[facility] [address] [place], [address] Potassium [Moles/Vol] 3.0 mmol/L Low 3.3-5.1 [facility] Comment on above: Performed By: #### L 501.2450, L100.0100, L503.6005, L500.4050 ####[facility] [address] [place], [address] Sodium [Moles/Vol] 140 mmol/L Normal 133-145 [facility] Comment on above: Performed By: #### L 501.2450, L100.0100, L503.6005, L500.4050 ####[facility] [address] [place], [address] T PROT 6.5 g/dL Normal 5.9-8.4 [facility] Comment on above: Performed By: #### L 501.2450, L100.0100, L503.6005, L500.4050 ####[facility] [address] [place], [address] Urea nitrogen [Mass/Vol] 15 mg/dL Normal 4-19 [facility] Comment on above: Performed By: #### L 501.2450, L100.0100, L503.6005, L500.4050 ####[facility] [address] [place], [address] ENTERIC PATHOGEN PANEL STOOL on 11-07-2024 EP PANEL Normal [facility] Comment on above: Performed By: #### M 100.637, M100.6795, M100.6796 ####[facility] [address] [place], [address] Emergency Department Summary on 11-07-2024 Emergency Department Summary Normal [facility] Eosinophil percentageOrdered By: Lluvia Vann on 11-07-2024 Eosinophils/100 WBC (Bld) 0.0 % 0-5 [facility] Erythrocyte distribution wid th ratioOrdered By: Lluvia Vann on 11-07-2024 Erythrocyte distribution width (RBC) [Ratio] 13.3 % 11.6-14.6 [facility] Erythrocyte distribution wid th standard deviationOrdered By: Lluvia Vann on 11-07-2024 Erythrocyte distribution width (RBC) [Ratio] 42.7 fl 35.1-43.9 [facility] Glomerular filtration rate ( GFR) estimation/1.73 sq m using serum, plasma, or whole bOrdered By: Lluvia Vann on 11-07-2024 GFR/1.73 sq M.predicted among non-blacks MDRD (S/P/Bld) [Vol rate/Area] 100 mL/min/{1.73_m2} >60 [facility] Comment on above: mL/min/1.73m2 CKD-EP I Creatinine Equation (2020) H AND P Exam - Hospitaliston 11-07-2024 H&P Exam - Hospitalist Normal [facility] Hematocrit Auto (Bld) [Volum e fraction]Ordered By: Lluvia Vann on 11-07-2024 Hematocrit (Bld) [Volume fraction] 30.3 % Low 37-47 [facility] Hemoglobin measurementOrdere d By: Lluvia Vann on 11-07-2024 Hemoglobin (Bld) [Mass/Vol] 10.5 g/dL Low 12.0-15.0 [facility] Immature granulocytes/100 WB C Auto (Bld)Ordered By: Lluvia Valenciaer on 11-07-2024 Immature granulocytes/100 WBC (Bld) 0.600 % 0.0-0.9 [facility] Comment on above: IG% - Immature Granu locytes (promyelocytes, myelocytes and metamyelocytes) > 1% indicates that a LEFT SHIFT is Present. Ketones Test strip Ql (U)Ord ered By: Lluvia Valenciaer on 11-07-2024 Ketones Ql (U) Negative Negative [facility] Laboratory - Chemistry and C hemistry - challengeOrdered By: Lluvia Vann on 11-07-2024 AST [Catalytic activity/Vol] 23 U/L <32 [facility] Lactic Acidon 11-07-2024 Lactate [Moles/Vol] 1.8 mmol/L Normal 0.0-2.0 [facility] Comment on above: Performed By: #### L 503.6005 ####[facility] [address] [place], [address] Lactate [Moles/Vol] 2.2 mmol/L Invalid Interpretation Code 0.0-2.0 [facility] Comment on above: Order Comment: Y Result Comment: Crit ical Result(s) Called at 1330: TO [place] by:KCLAPPER??Results read back by same. Performed By: #### L 501.2450, L100.0100, L503.6005, L500.4050 ####[facility] [address] [place], [place], [address] Lactic acid measurementOrder ed By: Lluviaevan Vann on 11-07-2024 Lactate [Moles/Vol] 1.8 mmol/L 0.0-2.0 [facility] Lactate [Moles/Vol] 2.2 mmol/L High 0.0-2.0 [facility] Comment on above: Critical Result(s) C alled at 1330: TO [place] by: KCLAPPER Results read back by same. Lipaseon 11-07-2024 Lipase [Catalytic activity/Vol] 29 U/L Normal 13-75 [facility] Comment on above: Result Comment: Efrem caldwell note:LIPASE revised reference range effective 22.New Lipase methodology. Expected to produce lower valuesthan the previous assay method.NEW Reference Range: 13 - 75 U/L Performed By: #### L 501.2450, L100.0100, L503.6005, L500.4050 ####[facility] [address] [place], [place], [address] Lipase measurementOrdered By : Lluvia Vann on 11-07-2024 Lipase [Catalytic activity/Vol] 29 U/L 13-75 [facility] Comment on above: Please note:LIPASE r evised reference range effective 22. New Lipase methodology. Expected to produce lower values than the previous assay method. NEW Reference Range: 13 - 75 U/L MCV (mean corpuscular volume ) determinationOrdered By: Lluvia Vann on 11-07-2024 MCV (RBC) [Entitic vol] 88.3 fL 81-99 [facility] MRI Abd WITH and W/O Contras ton 11-07-2024 MRI Abd WITH and W/O Contrast Normal [facility] Magnetic resonance imaging r eportOrdered By: Cosmo Montero on 11-07-2024 Study report [facility] Imaging Services [address] [place] [address] MRI Abd WITH and W/O Contrast MR#: [id number] Acct: [id number] Name: LAKESHA KOCH Rep #: [id number] : 1960 F 64 From: Alex Montero MD PCP: Aubrey Lopez FABRICATION OPERATOR-C Status: ADM IN Study:MRI Abd WITH and W/O Contrast Date of E xam: 11/07/24 Exam# [id number] Ordering Dr: Wendy Mendez MD PROCEDURE: MRI [...] cyst. *Status post right hemicolectomy. Reading Location: [id number] CC: Dr. Annette Mendez MD; [facility] FABRICATION OPERATOR-C Beam ~ Tmd Teacher Assistant: Signed [facility] Mean corpuscular hemoglobin (MCH) determinationOrdered By: Lluvia Vann on 11-07-2024 MCH (RBC) [Entitic mass] 30.6 pg 27.0-32.0 [facility] Mean corpuscular hemoglobin concentration (MCHC) determinationOrdered By: Lluvia Vann on 11-07-2024 MCHC (RBC) [Mass/Vol] 34.7 g/dL 32-36 [facility] Mean platelet volume determi nationOrdered By: Lluvia Vann on 11-07-2024 Platelet mean volume (Bld) [Entitic vol] 9.5 fL 6.2-12.0 [facility] Microscopic analysis of urin e for red blood cells (RBC)Ordered By: Lluvia Valenciaer on 11-07-2024 Microscopic analysis of urine for red blood cells (RBC) 0 SEEN /hpf 0-5 [facility] Monocyte percentageOrdered B y: Lluviaevan Vann on 11-07-2024 Monocytes/100 WBC (Bld) 3.3 % 0-10 [facility] Mucus LM Ql (Urine sed)Order ed By: Lluviaevan Vann on 11-07-2024 Mucus Ql (Urine sed) 0 SEEN /hpf [facility] Neutrophil percentageOrdered By: Lluvia Vann on 11-07-2024 Neutrophils/100 WBC (Bld) 90.3 % High 47-70 [facility] Nitrite Test strip Ql (U)Ord ered By: Lluviaevan Vann on 11-07-2024 Nitrite Ql (U) Negative Negative [facility] Nucleated red blood cell per centageOrdered By: Lluviaevan Vann on 11-07-2024 Nucleated RBC/100 WBC (Bld) [Ratio] 0 % 0-5 [facility] Platelet countOrdered By: Nitesh evan Vann on 11-07-2024 Platelets (Bld) [#/Vol] 283 10*3/uL 150-450 [facility] Potassium measurement (mass/ volume)Ordered By: Lluviaevan Vann on 11-07-2024 Potassium (Unsp spec) [Mass/Vol] 3.0 mmol/L Low 3.3-5.1 [facility] Protein Test strip Ql (U)Ord ered By: Lluviaevan Vann on 11-07-2024 Protein Ql (U) Negative Negative [facility] RBC Auto (Bld) [#/Vol]Ordere d By: Lluviaevan Vann on 11-07-2024 RBC (Bld) [#/Vol] 3.43 10*6/uL Low 4.2-5.4 [facility] Serum creatinine measurement (mass/volume)Ordered By: Lluviaevan Vann on 11-07-2024 Creatinine [Mass/Vol] 0.58 mg/dL Low 0.70-1.20 [facility] Serum globulin measurementOr dered By: Lluvia Vann on 11-07-2024 Globulin (S) [Mass/Vol] 2.7 g/dL 2.2-4.2 [facility] Serum glucose measurement (m ass/volume)Ordered By: Lluvia Vann on 11-07-2024 Glucose [Mass/Vol] 145 mg/dL High 70-99 [facility] Serum or plasma alanine ramirez otransferase (ALT) measurementOrdered By: Lluvia Vann on 11-07-2024 ALT [Catalytic activity/Vol] 10 U/L <35 [facility] Serum or plasma albumin renetta urement (mass/volume)Ordered By: Lluvia Vann on 11-07-2024 Albumin [Mass/Vol] 3.8 g/dL 3.4-4.8 [facility] Serum or plasma albumin/glob ulin mass ratioOrdered By: Lluvia Vann on 11-07-2024 Albumin/Globulin [Mass ratio] 1.4 {ratio} 0.9-2.4 [facility] Serum or plasma alkaline marquez sphatase measurementOrdered By: Lluvia Vann on 11-07-2024 ALP [Catalytic activity/Vol] 74 U/L 35-104 [facility] Serum or plasma calcium renetta urement (mass/volume)Ordered By: Lluvia Vann on 11-07-2024 Calcium [Mass/Vol] 8.7 mg/dL 7.6-11.0 [facility] Serum or plasma urea nitroge n measurement (mass/volume)Ordered By: Lluvia Vann on 11-07-2024 Urea nitrogen [Mass/Vol] 15 mg/dL 4-19 [facility] Sodium levelOrdered By: Siddhartha Vann on 11-07-2024 Sodium [Moles/Vol] 140 mmol/L 133-145 [facility] Squamous epithelial cells de tection in urine sediment by light microscopyOrdered By: Lluvia Vann on 11-07-2024 Epithelial cells.squamous LM Ql (Urine sed) 0 SEEN /hpf 5-10 [facility] Stool Clostridium difficile detectionOrdered By: Annette Mendez on 11-07-2024 C. difficile Ql (Stl) [facility] Total proteinOrdered By: Pau Vann on 11-07-2024 Protein [Mass/Vol] 6.5 g/dL 5.9-8.4 [facility] Urinalysis, Completeon 11-07 BACTERIA 0 SEEN Normal None Seen [facility] Comment on above: Order Comment: CLEAN CATCH Performed By: #### L 400.0001 ####[facility] [address] [place], [address] EPI,SQUAMOUS 0 SEEN Normal 5-10 [facility] Comment on above: Order Comment: CLEAN CATCH Performed By: #### L 400.0001 ####[facility] [address] [facility] [address] Mucus Ql (Urine sed) 0 SEEN Normal [facility] Comment on above: Order Comment: CLEAN CATCH Performed By: #### L 400.0001 ####[facility] [address] [facility] [address] RBC 0 SEEN Normal 0-5 [facility] Comment on above: Order Comment: CLEAN CATCH Performed By: #### L 400.0001 ####[facility] [address] [facility] [address] WBC 0 SEEN Normal 0-5 [facility] Comment on above: Order Comment: CLEAN CATCH Performed By: #### L 400.0001 ####[facility] [address] [place], [address] Urine clarityOrdered By: Pau Vann on 11-07-2024 Clarity (U) Clear Clear [facility] Urine color determinationOrd ered By: Lluvia Vann on 11-07-2024 Color (U) Yellow Yellow [facility] Urine glucose detectionOrder ed By: Lluvia Vann on 11-07-2024 Glucose Ql (U) Normal mg/dl Normal [facility] Urine leukocyte esterase det ection by dipstickOrdered By: Lluvia Vann on 11-07-2024 Leukocyte esterase Test strip Ql (U) Negative Negative [facility] Urine pHOrdered By: Lluvia cabrales on 11-07-2024 pH (U) 6.5 [pH] 5.0 - 8.0 [facility] Urine sediment bacteria coun t by microscopy (number/high power field)Ordered By: Lluvia Vann on 11-07-2024 Bacteria LM.HPF (Urine sed) [#/Area] 0 /[HPF] None Seen [facility] Urine specific gravity measu rementOrdered By: Lluvia Vann on 11-07-2024 Specific gravity (U) [Rel density] 1.010 1.002-1.03 0 [facility] Urine urobilinogen measureme ntOrdered By: Lluvia Vann on 11-07-2024 Urobilinogen Ql (U) Normal mg/dl Normal [facility] White blood cell (WBC) count Ordered By: Lluvia Vann on 11-07-2024 WBC (Bld) [#/Vol] 19.9 10*3/uL High 4.4-11.0 [facility] White blood cell countOrdere d By: Lluvia Vann on 11-07-2024 White blood cell count 0 SEEN /hpf 0-5 [facility] CBC W Auto Differential pane l (Bld)on 11-05-2024 Basophils (Bld) [#/Vol] 0.09 10*3/uL [facility] Basophils/100 WBC (Bld) 1.2 % [facility] Differential cell count method Nom (Bld) Auto [facility] Eosinophils (Bld) [#/Vol] 0.70 10*3/uL High [facility] Eosinophils/100 WBC (Bld) 9.4 % [facility] Erythrocyte distribution width (RBC) [Ratio] 13.2 % 11.5 - 15.0 % [facility] Hematocrit (Bld) [Volume fraction] 32.2 % Low 36.0 - 46.0 % [facility] Hemoglobin (Bld) [Mass/Vol] 10.7 g/dL Low 11.5 - 15.5 g/dL [facility] Immature granulocytes (Bld) [#/Vol] [facility] Immature granulocytes/100 WBC (Bld) 0.3 % [facility] Interpretation and review of laboratory results Abnormal [facility] Lymphocytes (Bld) [#/Vol] 1.77 10*3/uL [facility] Lymphocytes/100 WBC (Bld) 23.7 % [facility] MCH (RBC) [Entitic mass] 29.7 pg 26.0 - 34.0 pg [facility] MCHC (RBC) [Mass/Vol] 33.2 g/dL 30.5 - 36.0 g/dL [facility] MCV (RBC) [Entitic vol] 89.4 fL 80.0 - 100.0 fL [facility] Monocytes (Bld) [#/Vol] 0.55 10*3/uL [facility] Monocytes/100 WBC (Bld) 7.4 % [facility] Neutrophils (Bld) [#/Vol] 4.34 10*3/uL [facility] Neutrophils/100 WBC (Bld) 58.0 % [facility] Nucleated RBC (Bld) [#/Vol] NINF [facility] Nucleated RBC/100 WBC (Bld) [Ratio] 0.0 % /100 WBC [facility] Platelet mean volume (Bld) [Entitic vol] 9.1 fL 9.0 - 12.7 fL [facility] Platelets (Bld) [#/Vol] 284 10*3/uL [facility] RBC (Bld) [#/Vol] 3.60 10*6/uL Low 3.90 - 5.20 m/uL [facility] WBC (Bld) [#/Vol] 7.47 10*3/uL [facility] Basophils (Bld) [#/Vol] 0.09 10*3/uL Normal <0.11 [facility] Comment on above: Order Comment: Speci men Type: BLOOD SPECIMENOrdering Facility: [facility] Address: [address] [place] [address] Performed By: #### 5 7021-8 ####[facility] [id number] [place] [address] [place] Basophils/100 WBC (Bld) 1.2 % Normal [facility] Comment on above: Order Comment: Speci men Type: BLOOD SPECIMENOrdering Facility: [facility] Address: [address] [place] [address] Performed By: #### 5 7021-8 ####[facility] [id number] [place] [address] [place] Differential cell count method Nom (Bld) Auto Normal [facility] Comment on above: Order Comment: Speci men Type: BLOOD SPECIMENOrdering Facility: [facility] Address: [address] [place] [address] Performed By: #### 5 7021-8 ####[facility] BISHNUCOLECALDERONLetha [id number] [place] [address] [place] Eosinophils (Bld) [#/Vol] 0.70 10*3/uL High <0.46 [facility] Comment on above: Order Comment: Speci men Type: BLOOD SPECIMENOrdering Facility: [facility] Address: [address] [place] [address] Performed By: #### 5 7021-8 ####[facility] HOSPITALKALIELetha [id number] [place] [address] [place] Eosinophils/100 WBC (Bld) 9.4 % Normal [facility] Comment on above: Order Comment: Speci men Type: BLOOD SPECIMENOrdering Facility: [facility] Address: [address] [place] [address] Performed By: #### 5 7021-8 ####[facility] HOSPITALNCKELSIE [id number] [place] [address] [place] Erythrocyte distribution width (RBC) [Ratio] 13.2 % Normal 11.5-15.0 [facility] Comment on above: Order Comment: Speci men Type: BLOOD SPECIMENOrdering Facility: [facility] Address: [address] [place] [address] Performed By: #### 5 7021-8 ####[facility]PITALNCLIA [id number] [place] [address] [place] Hematocrit (Bld) [Volume fraction] 32.2 % Low 36.0-46.0 [facility] Comment on above: Order Comment: Speci men Type: BLOOD SPECIMENOrdering Facility: [facility] Address: [address] [place] [address] Performed By: #### 5 7021-8 ####[facility] MILLWNCLIA [id number] [place] [address] [place] Hemoglobin (Bld) [Mass/Vol] 10.7 g/dL Low 11.5-15.5 [facility] Comment on above: Order Comment: Speci men Type: BLOOD SPECIMENOrdering Facility: [facility] Address: [address] [place] [address] Performed By: #### 5 7021-8 ####[facility]TON[facility] [id number] [place] [address] [place] Immature granulocytes (Bld) [#/Vol] 10*3/uL Normal <0.10 [facility] Comment on above: Order Comment: Speci men Type: BLOOD SPECIMENOrdering Facility: [facility] Address: [address] [place] [address] Performed By: #### 5 7021-8 ####[facility] [id number] [place] [address] [place] Immature granulocytes/100 WBC (Bld) 0.3 % Normal [facility] Comment on above: Order Comment: Speci men Type: BLOOD SPECIMENOrdering Facility: [facility] Address: [address] [place] [address] Performed By: #### 5 7021-8 ####[facility]TON[facility] [id number] [place] [address] [place] Lymphocytes (Bld) [#/Vol] 1.77 10*3/uL Normal 1.00-4.00 [facility] Comment on above: Order Comment: Speci men Type: BLOOD SPECIMENOrdering Facility: [facility] Address: [address] [place] [address] Performed By: #### 5 7021-8 ####[facility]ITALNCLIA [id number] [place] [address] [place] Lymphocytes/100 WBC (Bld) 23.7 % Normal [facility] Comment on above: Order Comment: Speci men Type: BLOOD SPECIMENOrdering Facility: [facility] Address: [address] [place] [address] Performed By: #### 5 7021-8 ####[facility] [id number] [place] [address] [place] MCH (RBC) [Entitic mass] 29.7 pg Normal 26.0-34.0 [facility] Comment on above: Order Comment: Speci men Type: BLOOD SPECIMENOrdering Facility: [facility] Address: [address] [place] [address] Performed By: #### 5 7021-8 ####[facility] [id number] [place] [address] [place] MCHC (RBC) [Mass/Vol] 33.2 g/dL Normal 30.5-36.0 [facility] Comment on above: Order Comment: Speci men Type: BLOOD SPECIMENOrdering Facility: [facility] Address: [address] [place] [address] Performed By: #### 5 7021-8 ####[facility] [id number] [place] [address] [place] MCV (RBC) [Entitic vol] 89.4 fL Normal 80.0-100.0 [facility] Comment on above: Order Comment: Speci men Type: BLOOD SPECIMENOrdering Facility: [facility] Address: [address] [place] [address] Performed By: #### 5 7021-8 ####[facility] [id number] [place] [address] [place] Monocytes (Bld) [#/Vol] 0.55 10*3/uL Normal <0.87 [facility] Comment on above: Order Comment: Speci men Type: BLOOD SPECIMENOrdering Facility: [facility] Address: [address] [place] [address] Performed By: #### 5 7021-8 ####[facility] BISHNUCRUZITO [id number] [place] [address] [place] Monocytes/100 WBC (Bld) 7.4 % Normal [facility] Comment on above: Order Comment: Speci men Type: BLOOD SPECIMENOrdering Facility: [facility] Address: [address] [place] [address] Performed By: #### 5 7021-8 ####[facility] [id number] [place] [address] [place] Neutrophils (Bld) [#/Vol] 4.34 10*3/uL Normal 1.45-7.50 [facility] Comment on above: Order Comment: Speci men Type: BLOOD SPECIMENOrdering Facility: [facility] Address: [address] [place] [address] Performed By: #### 5 7021-8 ####[facility] [id number] [place] [address] [place] Neutrophils/100 WBC (Bld) 58.0 % Normal [facility] Comment on above: Order Comment: Speci men Type: BLOOD SPECIMENOrdering Facility: [facility] Address: [address] [place] [address] Performed By: #### 5 7021-8 ####[facility] [id number] [place] [address] [place] Nucleated RBC (Bld) [#/Vol] 10*3/uL Normal <0.01 [facility] Comment on above: Order Comment: Speci men Type: BLOOD SPECIMENOrdering Facility: [facility] Address: [address] [place] [address] Performed By: #### 5 7021-8 ####[facility] GILBERTL[facility] [id number] [place] [address] [place] Nucleated RBC/100 WBC (Bld) [Ratio] 0.0 /100 WBC Normal [facility] Comment on above: Order Comment: Speci men Type: BLOOD SPECIMENOrdering Facility: [facility] Address: [address] [place] [address] Performed By: #### 5 7021-8 ####[facility] HOSPITALGUMEA [id number] [place] [address] [place] Platelet mean volume (Bld) [Entitic vol] 9.1 fL Normal 9.0-12.7 [facility] Comment on above: Order Comment: Speci men Type: BLOOD SPECIMENOrdering Facility: [facility] Address: [address] [place] [address] Performed By: #### 5 7021-8 ####[facility] [id number] [place] [address] [place] Platelets (Bld) [#/Vol] 284 10*3/uL Normal 150-400 [facility] Comment on above: Order Comment: Speci men Type: BLOOD SPECIMENOrdering Facility: [facility] Address: [address] [place] [address] Performed By: #### 5 7021-8 ####[facility] H[facility]ITALGU[facility]A [id number] [place] [address] [place] RBC (Bld) [#/Vol] 3.60 10*6/uL Low 3.90-5.20 [facility] Comment on above: Order Comment: Speci men Type: BLOOD SPECIMENOrdering Facility: [facility] Address: [address] [place] [address] Performed By: #### 5 7021-8 ####[facility] HOSPITALNCLIA [id number] [place] [address] [place] WBC (Bld) [#/Vol] 7.47 10*3/uL Normal 3.70-11.00 [facility] Comment on above: Order Comment: Speci men Type: BLOOD SPECIMENOrdering Facility: [facility] Address: [address] [place] [address] Performed By: #### 5 7021-8 ####[facility] [id number] [place] [address] [place] CEA SerPl-mCncon 11-05-2024 Carcinoembryonic Ag [Mass/Vol] 8.4 ng/mL High <=2.9 [facility] Comment on above: Order Comment: Speci men Type: BLOOD SPECIMENOrdering Facility: [facility] Address: [address] [place] [address] Result Comment: Carc inoembryonic antigen test is used as an aid in monitoring response to treatment or recurrence in patients with established colorectal, breast, lung, prostatic, pancreatic, and ovarian carcinomas. Clinical correlation is required.The Carcinoembryonic antigen test was performed using the [employer] DXI paramagnetic particle chemiluminescent immunoassay method. Results obtained with different assay methods or kits cannot be used interchangeably. Performed By: #### 2 039-6 ####[facility] LABCLIA [id number] [place] [address] [place] CNOVSPon 11-05-2024 CNOVSP Normal [facility] Comprehensive metabolic 2000 panelOrdered By: Merlyn Veloz on 11-05-2024 Albumin [Mass/Vol] 3.7 g/dL Low 3.9 - 4.9 g/dL [facility] ALP [Catalytic activity/Vol] 118 U/L 34 - 123 U/L [facility] ALT [Catalytic activity/Vol] 7 U/L 7 - 38 U/L [facility] Anion gap [Moles/Vol] 10 mmol/L 8 - 15 mmol/L [facility] AST [Catalytic activity/Vol] 16 U/L 13 - 35 U/L [facility] Bilirubin [Mass/Vol] mg/dL Low 0.2 - 1 .3 mg/dL [facility] Calcium [Mass/Vol] 9.2 mg/dL 8.5 - 10. 2 mg/dL [facility] Chloride [Moles/Vol] 105 mmol/L 98 - 10 7 mmol/L [facility] CO2 [Moles/Vol] 24 mmol/L 22 - 30 mmol/L [facility] Creatinine [Mass/Vol] 0.50 mg/dL Low 0.58 - 0.96 mg/dL [facility] GFR/1.73 sq M.predicted among non-blacks MDRD (S/P/Bld) [Vol rate/Area] 104 mL/min/{1.73_m2} - PINF [facility] Comment on above: Estimated Glomerular Filtration [...] [Mass/Vol] 82 mg/dL 74 - 99 mg/dL [facility] Comment on above: The [place] Diab[employer] Association (ADA) provides guidance for [...] Standards of Medical Care in Diabetes 2016, [place] [employer]. Diabetes Care. 2016.39(Suppl 1). Interpretation and review of laboratory results Abnormal [facility] Potassium [Moles/Vol] 3.6 mmol/L Low 3.7 - 5.1 mmol/L [facility] Protein [Mass/Vol] 6.2 g/dL Low 6.3 - 8.0 g/dL [facility] Sodium [Moles/Vol] 139 mmol/L 136 - 144 mmol/L [facility] Urea nitrogen [Mass/Vol] 17 mg/dL 7 - 21 mg/dL [facility] Comprehensive metabolic 2000 panelon 11-05-2024 Albumin [Mass/Vol] 3.7 g/dL Low 3.9-4.9 [facility] Comment on above: Order Comment: Speci men Type: BLOOD SPECIMENOrdering Facility: [facility] Address: [address] [place] [address] Performed By: #### 1 9123-9, 27593-0 ####[facility] [id number] [place] [address] [place] ALP [Catalytic activity/Vol] 118 U/L Normal 34-123 [facility] Comment on above: Order Comment: Speci men Type: BLOOD SPECIMENOrdering Facility: [facility] Address: [address] [place] [address] Performed By: #### 1 9123-9, 77862-0 ####[facility] H[facility]PITALWKALIELIA [id number] [place] [address] [place] ALT [Catalytic activity/Vol] 7 U/L Normal 7-38 [facility] Comment on above: Order Comment: Speci men Type: BLOOD SPECIMENOrdering Facility: [facility] Address: [address] [place] [address] Performed By: #### 1 9123-9, 35401-9 ####[facility] H[facility]ITALGUMEA [id number] [place] [address] [place] Anion gap [Moles/Vol] 10 mmol/L Normal 8-15 [facility] Comment on above: Order Comment: Speci men Type: BLOOD SPECIMENOrdering Facility: [facility] Address: [address] [place] [address] Performed By: #### 1 9123-9, 40117-8 ####[facility] HOSPITALNCLIA [id number] [place] [address] [place] AST [Catalytic activity/Vol] 16 U/L Normal 13-35 [facility] Comment on above: Order Comment: Speci men Type: BLOOD SPECIMENOrdering Facility: [facility] Address: [address] [place] [address] Performed By: #### 1 9123-9, 08420-7 ####[facility]TON[facility] [id number] [place] [address] [place] Bilirubin [Mass/Vol] mg/dL Low 0.2-1.3 [facility] Comment on above: Order Comment: Speci men Type: BLOOD SPECIMENOrdering Facility: [facility] Address: [address] [place] [address] Performed By: #### 1 9123-9, 60690-5 ####[facility] [id number] [place] [address] [place] Calcium [Mass/Vol] 9.2 mg/dL Normal 8.5-10.2 [facility] Comment on above: Order Comment: Speci men Type: BLOOD SPECIMENOrdering Facility: [facility] Address: [address] [place] [address] Performed By: #### 1 9123-9, 62170-7 ####[facility]TONL[facility] [id number] [place] [address] [place] Chloride [Moles/Vol] 105 mmol/L Normal 98-107 [facility] Comment on above: Order Comment: Speci men Type: BLOOD SPECIMENOrdering Facility: [facility] Address: [address] [place] [address] Performed By: #### 1 9123-9, 90269-8 ####[facility]TONL[facility] [id number] [place] [address] [place] CO2 [Moles/Vol] 24 mmol/L Normal 22-30 [facility] Comment on above: Order Comment: Speci men Type: BLOOD SPECIMENOrdering Facility: [facility] Address: [address] [place] [address] Performed By: #### 1 9123-9, 99407-3 ####[facility]ITALKELSIE [id number] [place] [address] [place] Creatinine [Mass/Vol] 0.50 mg/dL Low 0.58-0.96 [facility] Comment on above: Order Comment: Speci men Type: BLOOD SPECIMENOrdering Facility: [facility] Address: [address] [place] [address] Performed By: #### 1 9123-9, 74124-3 ####[facility] HOSPITALNCLI [id number] [place] [address] [place] eGFRcr SerPlBld CKD-EPI 2020 104 mL/min/1.73m??? Normal >=60 [facility] Comment on above: Order Comment: Speci men Type: BLOOD SPECIMENOrdering Facility: [facility] Address: [address] [place] [address] Result Comment: Sana mated Glomerular Filtration Rate [...] actual GFR. Performed By: #### 1 9123-9, 16173-7 ####[facility]TON[facility] [id number] [place] [address] [place] Glucose [Mass/Vol] 82 mg/dL Normal 74-99 [facility] Comment on above: Order Comment: Speci men Type: BLOOD SPECIMENOrdering Facility: [facility] Address: [address] [place] [address] Result Comment: The [place] Diabetes Association (ADA) provides guidance for cutoff [...] Standards of Medical Care in Diabetes 2016, [place] [employer]. Diabetes Care. 2016.39(Suppl 1). Performed By: #### 1 9123-9, ####[facility]TONL[facility] [id number] [place] [address] [place] Potassium [Moles/Vol] 3.6 mmol/L Low 3.7-5.1 [facility] Comment on above: Order Comment: Speci men Type: BLOOD SPECIMENOrdering Facility: [facility] Address: [address] [place] [address] Performed By: #### 1 9123-9, ####[facility] [id number] [place] [address] [place] Protein [Mass/Vol] 6.2 g/dL Low 6.3-8.0 [facility] Comment on above: Order Comment: Speci men Type: BLOOD SPECIMENOrdering Facility: [facility] Address: [address] [place] [address] Performed By: #### 1 9123-9, ####[facility]TONL[facility] [id number] [place] [address] [place] Sodium [Moles/Vol] 139 mmol/L Normal 136-144 [facility] Comment on above: Order Comment: Speci men Type: BLOOD SPECIMENOrdering Facility: [facility] Address: [address] [place] [address] Performed By: #### 1 91239, ####[facility]OWNCL[facility] [id number] [place] [address] [place] Urea nitrogen [Mass/Vol] 17 mg/dL Normal 7-21 [facility] Comment on above: Order Comment: Speci men Type: BLOOD SPECIMENOrdering Facility: [facility] Address: [address] [place] [address] Performed By: #### 1 9123-9, 55941-9 ####[facility]ILL[facility]OWNCL[facility] [id number] [place] [address] [place] MAGNESIUMon 11-05-2024 Magnesium [Mass/Vol] 1.9 mg/dL 1.7 - 2 .3 mg/dL [facility] Magnesium SerPl-mCncon 11-05 Magnesium [Mass/Vol] 1.9 mg/dL Normal 1.7-2.3 [facility] Comment on above: Order Comment: Speci men Type: BLOOD SPECIMENOrdering Facility: [facility] Address: [address] [place] [address] Performed By: #### 1 9123-9, 13420-4 ####[facility] MILLWRIL[facility] [id number] [place] [address] [place] Magnesium [Mass/Vol]on 11-05 Interpretation and review of laboratory results Normal [facility] CNPNon 10-25-2024 CNPN Normal [facility] CNPNon 10-24-2024 CNPN Normal [facility] Absolute lymphocyte countOrd ered By: Ankit Marsh on 10-23-2024 Lymphocytes Auto (Unsp spec) [#/Vol] 1.13 10*3/uL 0.83-4.51 [facility] Absolute neutrophil countOrd ered By: Ankit Marsh on 10-23-2024 Neutrophils (Bld) [#/Vol] 4.7 10*3/uL 2.0-7.7 [facility] Anion gap in Serum or Plasma Ordered By: Ankit Marsh on 07-30-2025 Anion gap [Moles/Vol] 14 mmol/L 5-15 [facility] Automated lymphocyte count a s percentage of total leukocytesOrdered By: Ankit Marsh on 10-23-2024 Lymphocytes/100 WBC Auto (Unsp spec) 17.9 % Low 19-41 [facility] BUN/creatinine ratioOrdered By: Ankit Willettletha on 10-23-2024 Urea nitrogen/Creatinine [Mass ratio] 29.3 mg/mg High 10-20 [facility] Basophil percentageOrdered B y: Ankit Marsh on 10-23-2024 Basophils/100 WBC (Bld) 0.8 % 0-1 [facility] Bilirubin, totalOrdered By: Ankit Tamieletha on 10-23-2024 Bilirubin [Mass/Vol] 0.25 mg/dL 0.00-1.30 [facility] CBC W/Diff, Automatedon 09-26 Absolute Lymph 1.13 X10 3/uL Normal 0.83-4.51 [facility] Comment on above: Performed By: #### L 500.4050, L501.2450, L100.0100 ####[facility] [address] [place], [address] Absolute Neut 4.7 X10 3/uL Normal 2.0-7.7 [facility] Comment on above: Performed By: #### L 500.4050, L501.2450, L100.0100 ####[facility] [address] [place], [address] Basophils/100 WBC (Bld) 0.8 % Normal 0-1 [facility] Comment on above: Performed By: #### L 500.4050, L501.2450, L100.0100 ####[facility] [address] [place], [address] Eosinophils/100 WBC (Bld) 2.2 % Normal 0-5 [facility] Comment on above: Performed By: #### L 500.4050, L501.2450, L100.0100 ####[facility] [address] [place], [address] Erythrocyte distribution width (RBC) [Ratio] 13.6 % Normal 11.6-14.6 [facility] Comment on above: Performed By: #### L 500.4050, L501.2450, L100.0100 ####[facility] [address] [place], [address] Hematocrit (Bld) [Volume fraction] 40.5 % Normal 37-47 [facility] Comment on above: Performed By: #### L 500.4050, L501.2450, L100.0100 ####[facility] [address] [place], [address] Hemoglobin (Bld) [Mass/Vol] 13.2 g/dL Normal 12.0-15.0 [facility] Comment on above: Performed By: #### L 500.4050, L501.2450, L100.0100 ####[facility] [address] [place], [address] IG% 0.300 Normal 0.0-0.9 [facility] Comment on above: Result Comment: IG% - Immature Granulocytes (promyelocytes, myelocytes andmetamyelocytes) > 1% indicates that a LEFT SHIFT is Present. Performed By: #### L 500.4050, L501.2450, L100.0100 ####[facility] [address] [place], [address] Lymphocytes/100 WBC (Bld) 17.9 % Low 19-41 [facility] Comment on above: Performed By: #### L 500.4050, L501.2450, L100.0100 ####[facility] [address] [place], [address] MCH (RBC) [Entitic mass] 29.7 pg Normal 27.0-32.0 [facility] Comment on above: Performed By: #### L 500.4050, L501.2450, L100.0100 ####[facility] [address] [place], [address] MCHC (RBC) [Mass/Vol] 32.6 g/dL Normal 32-36 [facility] Comment on above: Performed By: #### L 500.4050, L501.2450, L100.0100 ####[facility] [address] [place], [address] MCV (RBC) [Entitic vol] 91.2 fL Normal 81-99 [facility] Comment on above: Performed By: #### L 500.4050, L501.2450, L100.0100 ####[facility] [address] [place], [address] Monocytes/100 WBC (Bld) 4.8 % Normal 0-10 [facility] Comment on above: Performed By: #### L 500.4050, L501.2450, L100.0100 ####[facility] [address] [place], [address] Neutrophils/100 WBC (Bld) 74.0 % High 47-70 [facility] Comment on above: Performed By: #### L 500.4050, L501.2450, L100.0100 ####[facility] [address] [place], [address] Nucleated RBC (Bld) [#/Vol] 0 10*3/uL Normal 0-5 [facility] Comment on above: Performed By: #### L 500.4050, L501.2450, L100.0100 ####[facility] [address] [place], [address] Platelet mean volume (Bld) [Entitic vol] 9.4 fL Normal 6.2-12.0 [facility] Comment on above: Performed By: #### L 500.4050, L501.2450, L100.0100 ####[facility] [address] [place], [address] Platelets (Bld) [#/Vol] 293 10*3/uL Normal 150-450 [facility] Comment on above: Performed By: #### L 500.4050, L501.2450, L100.0100 ####[facility] [address] [place], [address] RBC (Bld) [#/Vol] 4.44 10*6/uL Normal 4.2-5.4 [facility] Comment on above: Performed By: #### L 500.4050, L501.2450, L100.0100 ####[facility] [address] [place], [address] RDW SD 45.9 fl High 35.1-43.9 [facility] Comment on above: Performed By: #### L 500.4050, L501.2450, L100.0100 ####[facility] [address] [place], [address] WBC (Bld) [#/Vol] 6.3 10*3/uL Normal 4.4-11.0 [facility] Comment on above: Performed By: #### L 500.4050, L501.2450, L100.0100 ####[facility] [address] [place], [address] Carbon dioxide, total [Moles /volume] in Central venous bloodOrdered By: Ankit Marsh on 10-23-2024 CO2 [Moles/Vol] 16.5 mmol/L Low 21.0-32.0 [facility] Chloride assayOrdered By: Omayra Marsh on 10-23-2024 Chloride [Moles/Vol] 108 mmol/L 98-108 [facility] Comprehensive Metabolic Prof ilon 10-23-2024 Albumin [Mass/Vol] 4.1 g/dL Normal 3.4-4.8 [facility] Comment on above: Performed By: #### L 500.4050, L501.2450, L100.0100 ####[facility] [address] [place], [address] Albumin/Globulin [Mass ratio] 1.2 {ratio} Normal 0.9-2.4 [facility] Comment on above: Performed By: #### L 500.4050, L501.2450, L100.0100 ####[facility] [address] [place], [address] ALK PHOS 100 U/L Normal 35-104 [facility] Comment on above: Performed By: #### L 500.4050, L501.2450, L100.0100 ####[facility] [address] [place], [address] ALT [Catalytic activity/Vol] 8 U/L Normal <=34 [facility] Comment on above: Performed By: #### L 500.4050, L501.2450, L100.0100 ####[facility] [address] [place], [address] AST [Catalytic activity/Vol] 23 U/L Normal <=31 [facility] Comment on above: Result Comment: Hemo lysis present, Results??could be affected.?? Performed By: #### L 500.4050, L501.2450, L100.0100 ####[facility] [address] [place], [address] Bilirubin [Mass/Vol] 0.25 mg/dL Normal 0.00-1.30 [facility] Comment on above: Performed By: #### L 500.4050, L501.2450, L100.0100 ####[facility] [address] [place], [address] BUN/CRE 29.3 RATIO High 10-20 [facility] Comment on above: Performed By: #### L 500.4050, L501.2450, L100.0100 ####[facility] [address] [place], [address] Calcium [Mass/Vol] 9.4 mg/dL Normal 7.6-11.0 [facility] Comment on above: Performed By: #### L 500.4050, L501.2450, L100.0100 ####[facility] [address] [place], [address] Chloride [Moles/Vol] 108 mmol/L Normal 98-108 [facility] Comment on above: Performed By: #### L 500.4050, L501.2450, L100.0100 ####[facility] [address] [place], [address] CO2 [Moles/Vol] 16.5 mmol/L Low 21.0-32.0 [facility] Comment on above: Performed By: #### L 500.4050, L501.2450, L100.0100 ####[facility] [address] [place], [address] Creatinine [Mass/Vol] 0.65 mg/dL Low 0.70-1.20 [facility] Comment on above: Performed By: #### L 500.4050, L501.2450, L100.0100 ####[facility] [address] [place], [address] GAP 14 Normal 5-15 [facility] Comment on above: Performed By: #### L 500.4050, L501.2450, L100.0100 ####[facility] [address] [place], [address] GFR/1.73 sq M.predicted among non-blacks MDRD (S/P/Bld) [Vol rate/Area] 98 mL/min/{1.73_m2} Normal >60 [facility] Comment on above: Result Comment: mL/m in/1.73m2 CKD-EPI Creatinine Equation (2020) Performed By: #### L 500.4050, L501.2450, L100.0100 ####[facility] [address] [place], [address] Globulin (S) [Mass/Vol] 3.6 g/dL Normal 2.2-4.2 [facility] Comment on above: Performed By: #### L 500.4050, L501.2450, L100.0100 ####[facility] [address] [place], [address] Glucose [Mass/Vol] 139 mg/dL High 70-99 [facility] Comment on above: Performed By: #### L 500.4050, L501.2450, L100.0100 ####[facility] [address] [place], [address] Potassium [Moles/Vol] 3.7 mmol/L Normal 3.3-5.1 [facility] Comment on above: Result Comment: Hemo lysis present, Results??could be affected.?? Performed By: #### L 500.4050, L501.2450, L100.0100 ####[facility] [address] [place], [address] Sodium [Moles/Vol] 138 mmol/L Normal 133-145 [facility] Comment on above: Performed By: #### L 500.4050, L501.2450, L100.0100 ####[facility] [address] [place], [address] T PROT 7.7 g/dL Normal 5.9-8.4 [facility] Comment on above: Performed By: #### L 500.4050, L501.2450, L100.0100 ####[facility] [address] [place], [address] Urea nitrogen [Mass/Vol] 19 mg/dL Normal 4-19 [facility] Comment on above: Performed By: #### L 500.4050, L501.2450, L100.0100 ####[facility] [address] [place], [address] Emergency Department Summary on 10-23-2024 Emergency Department Summary Normal [facility] Eosinophil percentageOrdered By: Ankit Marsh on 10-23-2024 Eosinophils/100 WBC (Bld) 2.2 % 0-5 [facility] Erythrocyte distribution wid th ratioOrdered By: Ankit Marsh on 10-23-2024 Erythrocyte distribution width (RBC) [Ratio] 13.6 % 11.6-14.6 [facility] Erythrocyte distribution wid th standard deviationOrdered By: Ankit Marsh on 10-23-2024 Erythrocyte distribution width (RBC) [Ratio] 45.9 fl High 35.1-43.9 [facility] Glomerular filtration rate ( GFR) estimation/1.73 sq m using serum, plasma, or whole bOrdered By: Ankit Marsh on 10-23-2024 GFR/1.73 sq M.predicted among non-blacks MDRD (S/P/Bld) [Vol rate/Area] 98 mL/min/{1.73_m2} >60 [facility] Comment on above: mL/min/1.73m2 CKD-EP I Creatinine Equation (2020) Hematocrit Auto (Bld) [Volum e fraction]Ordered By: Ankit Marsh on 10-23-2024 Hematocrit (Bld) [Volume fraction] 40.5 % 37-47 [facility] Hemoglobin measurementOrdere d By: Ankit Marsh on 10-23-2024 Hemoglobin (Bld) [Mass/Vol] 13.2 g/dL 12.0-15.0 [facility] Immature granulocytes/100 WB C Auto (Bld)Ordered By: Ankit Marsh on 10-23-2024 Immature granulocytes/100 WBC (Bld) 0.300 % 0.0-0.9 [facility] Comment on above: IG% - Immature Granu locytes (promyelocytes, myelocytes and metamyelocytes) > 1% indicates that a LEFT SHIFT is Present. Laboratory - Chemistry and C hemistry - challengeOrdered By: Ankit Marsh on 10-23-2024 AST [Catalytic activity/Vol] 23 U/L <32 [facility] Comment on above: Hemolysis present, R esults could be affected. Lipaseon 10-23-2024 Lipase [Catalytic activity/Vol] 27 U/L Normal 13-75 [facility] Comment on above: Result Comment: Efrem caldwell note:LIPASE revised reference range effective 22.New Lipase methodology. Expected to produce lower valuesthan the previous assay method.NEW Reference Range: 13 - 75 U/L Performed By: #### L 500.4050, L501.2450, L100.0100 ####[facility] [address] [place], [address] Lipase measurementOrdered By : Ankit Masrh on 10-23-2024 Lipase [Catalytic activity/Vol] 27 U/L 13-75 [facility] Comment on above: Please note:LIPASE r evised reference range effective 22. New Lipase methodology. Expected to produce lower values than the previous assay method. NEW Reference Range: 13 - 75 U/L MCV (mean corpuscular volume ) determinationOrdered By: Ankit Marsh on 10-23-2024 MCV (RBC) [Entitic vol] 91.2 fL 81-99 [facility] Mean corpuscular hemoglobin (MCH) determinationOrdered By: Ankit Marsh on 10-23-2024 MCH (RBC) [Entitic mass] 29.7 pg 27.0-32.0 [facility] Mean corpuscular hemoglobin concentration (MCHC) determinationOrdered By: Ankit Marsh on 10-23-2024 MCHC (RBC) [Mass/Vol] 32.6 g/dL 32-36 [facility] Mean platelet volume determi nationOrdered By: Ankit Marsh on 10-23-2024 Platelet mean volume (Bld) [Entitic vol] 9.4 fL 6.2-12.0 [facility] Monocyte percentageOrdered B y: Ankit Marsh on 10-23-2024 Monocytes/100 WBC (Bld) 4.8 % 0-10 [facility] Neutrophil percentageOrdered By: Ankit Marsh on 10-23-2024 Neutrophils/100 WBC (Bld) 74.0 % High 47-70 [facility] No Panel InformationOrdered By: Ankit Marsh on 10-23-2024 23 U/L <32 [facility] Nucleated red blood cell per centageOrdered By: Ankit Marsh on 10-23-2024 Nucleated RBC/100 WBC (Bld) [Ratio] 0 % 0-5 [facility] Platelet countOrdered By: Omayra Marsh on 10-23-2024 Platelets (Bld) [#/Vol] 293 10*3/uL 150-450 [facility] Potassium measurement (mass/ volume)Ordered By: Ankit Marsh on 10-23-2024 Potassium (Unsp spec) [Mass/Vol] 3.7 mmol/L 3.3-5.1 [facility] Comment on above: Hemolysis present, R esults could be affected. RBC Auto (Bld) [#/Vol]Ordere d By: Ankit Marsh on 10-23-2024 RBC (Bld) [#/Vol] 4.44 10*6/uL 4.2-5.4 [facility] Serum creatinine measurement (mass/volume)Ordered By: Ankit Marsh on 10-23-2024 Creatinine [Mass/Vol] 0.65 mg/dL Low 0.70-1.20 [facility] Serum globulin measurementOr dered By: Ankit Marsh on 10-23-2024 Globulin (S) [Mass/Vol] 3.6 g/dL 2.2-4.2 [facility] Serum glucose measurement (m ass/volume)Ordered By: Ankit Marsh on 10-23-2024 Glucose [Mass/Vol] 139 mg/dL High 70-99 [facility] Serum or plasma alanine ramirez otransferase (ALT) measurementOrdered By: Ankit Marsh on 10-23-2024 ALT [Catalytic activity/Vol] 8 U/L <35 [facility] Serum or plasma albumin renetta urement (mass/volume)Ordered By: Ankit Marsh on 10-23-2024 Albumin [Mass/Vol] 4.1 g/dL 3.4-4.8 [facility] Serum or plasma albumin/glob ulin mass ratioOrdered By: Ankit Marsh on 10-23-2024 Albumin/Globulin [Mass ratio] 1.2 {ratio} 0.9-2.4 [facility] Serum or plasma alkaline marquez sphatase measurementOrdered By: Ankit Marsh on 10-23-2024 ALP [Catalytic activity/Vol] 100 U/L 35-104 [facility] Serum or plasma calcium renetta urement (mass/volume)Ordered By: Ankit Marsh on 10-23-2024 Calcium [Mass/Vol] 9.4 mg/dL 7.6-11.0 [facility] Serum or plasma urea nitroge n measurement (mass/volume)Ordered By: Ankit Marsh on 10-23-2024 Urea nitrogen [Mass/Vol] 19 mg/dL 4-19 [facility] Sodium levelOrdered By: Ankit Marsh on 10-23-2024 Sodium [Moles/Vol] 138 mmol/L 133-145 [facility] Total proteinOrdered By: Clinton Marsh on 10-23-2024 Protein [Mass/Vol] 7.7 g/dL 5.9-8.4 [facility] White blood cell (WBC) count Ordered By: Ankit Marsh on 10-23-2024 WBC (Bld) [#/Vol] 6.3 10*3/uL 4.4-11.0 [facility] BRIEF OP NOTon 10-21-2024 BRIEF OP NOT HNO ID: [id number] Author: ROMELIA GARY MD Service: Interventional Radiology [...] note. ATTENDING RADIOLOGIST: Interventional: Dr. Romelia Gary SALES PROGRAM MANAGER: None PRE-PROCEDURAL DIAGNOSIS: cecal cancer PROCEDURE: Other [...] DATE: October 21, 2024 TIME: 12:25 PM [facility] HISTORY PHYSICALon HISTORY PHYSICAL HNO ID: [id number] Author: ROMELIA GARY MD Service: Interventional Radiology [...] DATE: October 21, 2024 TIME: 10:28 AM [facility] IR FLUOR GUID VASC ACCESSon 10-21-2024 IR FLUOR GUID VASC ACCESS * * *Final Report* * * DATE OF EXAM: Oct 21 2024 12:23PM [facility] [id number] - IR FLUOR GUID VASC ACCESS [...] performed by the: attending radiologist, without an public services assistant. The attending radiologist performed the following procedural activities: Entire procedure IMPRESSION: INSERTION OF RIGHT-SIDED POWER-INJECTABLE SINGLE-LUMEN TUNNELED CHEST PORT, WITH CATHETER TIP IN THE EXPECTED LOCATION OF THE RIGHT ATRIUM. PLAN: THE PORT IS READY FOR USE. RECOMMENDED FLUSH PER [facility] POLICY. ATTESTATION: Signer name: Tino (more content not included)... [facility] IR US GUIDE VASC ACCESSon IR US GUIDE VASC ACCESS * * *Final Report* * * DATE OF EXAM: Oct 21 2024 12:23PM [facility] [id number] - IR US GUIDE VASC ACCESS [...] performed by the: attending radiologist, without an public services assistant. The attending radiologist performed the following procedural activities: Entire procedure IMPRESSION: INSERTION OF RIGHT-SIDED POWER-INJECTABLE SINGLE-LUMEN TUNNELED CHEST PORT, WITH CATHETER TIP IN THE EXPECTED LOCATION OF THE RIGHT ATRIUM. PLAN: THE PORT IS READY FOR USE. RECOMMENDED FLUSH PER [facility] POLICY. ATTESTATION: Signer name: Romelia (more content not included)... [facility] 10-[facility]-2024 [facility] CNPNon 10-14-2024 [facility] Normal [facility] CNOVSPon 10-10-2024 CNOVSP Normal [facility] Basic Metabolic Profile (BMP )on 10-03-2024 BUN Normal 4-19 [facility] Comment on above: Result Comment: Canc elled via OM: Order cancelled - Patient discharged Performed By: #### L 100.0100, L500.2500 ####[facility] [address] [facility] [address] BUN/CRE Normal 10-20 [facility] Comment on above: Result Comment: Canc elled via OM: Order cancelled - Patient discharged Performed By: #### L 100.0100, L500.2500 ####[facility] [address] [facility] [address] Calcium Normal 7.6-11.0 [facility] Comment on above: Result Comment: Canc elled via OM: Order cancelled - Patient discharged Performed By: #### L 100.0100, L500.2500 ####[facility] [address] [place], [address] CL Normal 98-108 [facility] Comment on above: Result Comment: Canc elled via OM: Order cancelled - Patient discharged Performed By: #### L 100.0100, L500.2500 ####[facility] [address] [place], [address] CO2 Normal 21.0-32.0 [facility] Comment on above: Result Comment: Canc elled via OM: Order cancelled - Patient discharged Performed By: #### L 100.0100, L500.2500 ####[facility] [address] [place], [address] CREAT,SERUM Normal 0.70-1.20 [facility] Comment on above: Result Comment: Canc elled via OM: Order cancelled - Patient discharged Performed By: #### L 100.0100, L500.2500 ####[facility] [address] [place], [address] eGFR Normal >60 [facility] Comment on above: Result Comment: Canc elled via OM: Order cancelled - Patient discharged Performed By: #### L 100.0100, L500.2500 ####[facility] [address] [place], [address] GAP Normal 5-15 [facility] Comment on above: Result Comment: Canc elled via OM: Order cancelled - Patient discharged Performed By: #### L 100.0100, L500.2500 ####[facility] [address] [place], [address] GLU Normal 70-99 [facility] Comment on above: Result Comment: Canc elled via OM: Order cancelled - Patient discharged Performed By: #### L 100.0100, L500.2500 ####[facility] [address] [place], [address] Potassium Normal 3.3-5.1 [facility] Comment on above: Result Comment: Canc elled via OM: Order cancelled - Patient discharged Performed By: #### L 100.0100, L500.2500 ####[facility] [address] [place], [address] Basic Metabolic Profile (BMP) Normal 133-145 [facility] Comment on above: Result Comment: Canc elled via OM: Order cancelled - Patient discharged Performed By: #### L 100.0100, L500.2500 ####[facility] [address] [place], [address] CBC W/Diff, Automatedon 07-1 0-2024 Absolute Neut Normal 2.0-7.7 [facility] Comment on above: Result Comment: Canc elled via OM: Order cancelled - Patient discharged Performed By: #### L 100.0100, L500.2500 ####[facility] [address] [place], [address] HCT Normal 37-47 [facility] Comment on above: Result Comment: Canc elled via OM: Order cancelled - Patient discharged Performed By: #### L 100.0100, L500.2500 ####[facility] [address] [place], [address] HGB Normal 12.0-15.0 [facility] Comment on above: Result Comment: Canc elled via OM: Order cancelled - Patient discharged Performed By: #### L 100.0100, L500.2500 ####[facility] [address] [place], [address] MCH Normal 27.0-32.0 [facility] Comment on above: Result Comment: Canc elled via OM: Order cancelled - Patient discharged Performed By: #### L 100.0100, L500.2500 ####[facility] [address] [place], [address] MCHC Normal 32-36 [facility] Comment on above: Result Comment: Canc elled via OM: Order cancelled - Patient discharged Performed By: #### L 100.0100, L500.2500 ####[facility] [address] [place], [address] MCV Normal 81-99 [facility] Comment on above: Result Comment: Canc elled via OM: Order cancelled - Patient discharged Performed By: #### L 100.0100, L500.2500 ####[facility] [address] [place], [address] NEUT% Normal 47-70 [facility] Comment on above: Result Comment: Canc elled via OM: Order cancelled - Patient discharged Performed By: #### L 100.0100, L500.2500 ####[facility] [address] [place], [address] PLT Normal 150-450 [facility] Comment on above: Result Comment: Canc elled via OM: Order cancelled - Patient discharged Performed By: #### L 100.0100, L500.2500 ####[facility] [address] [place], [address] RBC Normal 4.2-5.4 [facility] Comment on above: Result Comment: Canc elled via OM: Order cancelled - Patient discharged Performed By: #### L 100.0100, L500.2500 ####[facility] [address] [place], [address] RDW CV Normal 11.6-14.6 [facility] Comment on above: Result Comment: Canc elled via OM: Order cancelled - Patient discharged Performed By: #### L 100.0100, L500.2500 ####[facility] [address] [place], [address] RDW SD Normal 35.1-43.9 [facility] Comment on above: Result Comment: Canc elled via OM: Order cancelled - Patient discharged Performed By: #### L 100.0100, L500.2500 ####[facility] [address] [place], [address] WBC Normal 4.4-11.0 [facility] Comment on above: Result Comment: Canc elled via OM: Order cancelled - Patient discharged Performed By: #### L 100.0100, L500.2500 ####[facility] [address] [place], [address] CNPNon 10-02-2024 CNPN Normal [facility] Basic Metabolic Profile (BMP )on 09-26-2024 BUN Normal 4-19 [facility] Comment on above: Result Comment: Canc elled via OM: Order cancelled - Patient discharged Performed By: #### L 500.2500, L100.0100 ####[facility] [address] [place], [address] BUN/CRE Normal 10-20 [facility] Comment on above: Result Comment: Canc elled via OM: Order cancelled - Patient discharged Performed By: #### L 500.2500, L100.0100 ####[facility] [address] [place], [address] Calcium Normal 7.6-11.0 [facility] Comment on above: Result Comment: Canc elled via OM: Order cancelled - Patient discharged Performed By: #### L 500.2500, L100.0100 ####[facility] [address] [place], [address] CL Normal 98-108 [facility] Comment on above: Result Comment: Canc elled via OM: Order cancelled - Patient discharged Performed By: #### L 500.2500, L100.0100 ####[facility] [address] [place], [address] CO2 Normal 21.0-32.0 [facility] Comment on above: Result Comment: Canc elled via OM: Order cancelled - Patient discharged Performed By: #### L 500.2500, L100.0100 ####[facility] [address] [place], [address] CREAT,SERUM Normal 0.70-1.20 [facility] Comment on above: Result Comment: Canc elled via OM: Order cancelled - Patient discharged Performed By: #### L 500.2500, L100.0100 ####[facility] [address] [place], [address] eGFR Normal >60 [facility] Comment on above: Result Comment: Canc elled via OM: Order cancelled - Patient discharged Performed By: #### L 500.2500, L100.0100 ####[facility] [address] [place], [address] GAP Normal 5-15 [facility] Comment on above: Result Comment: Canc elled via OM: Order cancelled - Patient discharged Performed By: #### L 500.2500, L100.0100 ####[facility] [address] [place], [address] GLU Normal 70-99 [facility] Comment on above: Result Comment: Canc elled via OM: Order cancelled - Patient discharged Performed By: #### L 500.2500, L100.0100 ####[facility] [address] [place], [address] Potassium Normal 3.3-5.1 [facility] Comment on above: Result Comment: Canc elled via OM: Order cancelled - Patient discharged Performed By: #### L 500.2500, L100.0100 ####[facility] [address] [place], [address] Basic Metabolic Profile (BMP) Normal 133-145 [facility] Comment on above: Result Comment: Canc elled via OM: Order cancelled - Patient discharged Performed By: #### L 500.2500, L100.0100 ####[facility] [address] [place], [address] CBC W/Diff, Automatedon 07-0 -2024 Absolute Neut Normal 2.0-7.7 [facility] Comment on above: Result Comment: Canc elled via OM: Order cancelled - Patient discharged Performed By: #### L 500.2500, L100.0100 ####[facility] [address] [place], [address] HCT Normal 37-47 [facility] Comment on above: Result Comment: Canc elled via OM: Order cancelled - Patient discharged Performed By: #### L 500.2500, L100.0100 ####[facility] [address] [place], [address] HGB Normal 12.0-15.0 [facility] Comment on above: Result Comment: Canc elled via OM: Order cancelled - Patient discharged Performed By: #### L 500.2500, L100.0100 ####[facility] [address] [place], [address] MCH Normal 27.0-32.0 [facility] Comment on above: Result Comment: Canc elled via OM: Order cancelled - Patient discharged Performed By: #### L 500.2500, L100.0100 ####[facility] [address] [place], [address] MCHC Normal 32-36 [facility] Comment on above: Result Comment: Canc elled via OM: Order cancelled - Patient discharged Performed By: #### L 500.2500, L100.0100 ####[facility] [address] [place], [address] MCV Normal 81-99 [facility] Comment on above: Result Comment: Canc elled via OM: Order cancelled - Patient discharged Performed By: #### L 500.2500, L100.0100 ####[facility] [address] [place], [address] NEUT% Normal 47-70 [facility] Comment on above: Result Comment: Canc elled via OM: Order cancelled - Patient discharged Performed By: #### L 500.2500, L100.0100 ####[facility] [address] [place], [address] PLT Normal 150-450 [facility] Comment on above: Result Comment: Canc elled via OM: Order cancelled - Patient discharged Performed By: #### L 500.2500, L100.0100 ####[facility] [address] [place], [address] RBC Normal 4.2-5.4 [facility] Comment on above: Result Comment: Canc elled via OM: Order cancelled - Patient discharged Performed By: #### L 500.2500, L100.0100 ####[facility] [address] [place], [address] RDW CV Normal 11.6-14.6 [facility] Comment on above: Result Comment: Canc elled via OM: Order cancelled - Patient discharged Performed By: #### L 500.2500, L100.0100 ####[facility] [address] [place], [address] RDW SD Normal 35.1-43.9 [facility] Comment on above: Result Comment: Canc elled via OM: Order cancelled - Patient discharged Performed By: #### L 500.2500, L100.0100 ####[facility] [address] [place], [address] WBC Normal 4.4-11.0 [facility] Comment on above: Result Comment: Canc elled via OM: Order cancelled - Patient discharged Performed By: #### L 500.2500, L100.0100 ####[facility] [address] [place], [address] CNOVSPon 09-25-2024 CNOVSP Normal [facility] CNPNon 09-25-2024 CNPN Normal [facility] REFERRAL FOR ADDITIONAL BIOM ARKER AND MOLECULAR TESTINGon 09-25-2024 REFERRAL FOR ADDITIONAL BIOMARKER AND MOLECULAR TESTING Normal [facility] Comment on above: Order Comment: Speci men Type: TISSUE SPECIMENOrdering Facility: [facility] Address: [address] [place] [address] Result Comment: Requ est has been received for evaluation and the results will be issued separately. Performed By: #### A PMOL ####[facility]PITALWNCLIA [id number] [place] [address] [place] Inital Evaluation (1) - PTon 09-23-2024 Inital Evaluation (1) - PT Normal [facility] Basic Metabolic Profile (BMP )on 09-19-2024 BUN Normal 4-19 [facility] Comment on above: Result Comment: Canc elled via OM: Order cancelled - Patient discharged Performed By: #### L 500.2500, L100.0100 ####[facility] [address] [facility] [address] BUN/CRE Normal 10-20 [facility] Comment on above: Result Comment: Canc elled via OM: Order cancelled - Patient discharged Performed By: #### L 500.2500, L100.0100 ####[facility] [address] [place], [address] Calcium Normal 7.6-11.0 [facility] Comment on above: Result Comment: Canc elled via OM: Order cancelled - Patient discharged Performed By: #### L 500.2500, L100.0100 ####[facility] [address] [place], [address] CL Normal 98-108 [facility] Comment on above: Result Comment: Canc elled via OM: Order cancelled - Patient discharged Performed By: #### L 500.2500, L100.0100 ####[facility] [address] [place], [address] CO2 Normal 21.0-32.0 [facility] Comment on above: Result Comment: Canc elled via OM: Order cancelled - Patient discharged Performed By: #### L 500.2500, L100.0100 ####[facility] [address] [place], [address] CREAT,SERUM Normal 0.70-1.20 [facility] Comment on above: Result Comment: Canc elled via OM: Order cancelled - Patient discharged Performed By: #### L 500.2500, L100.0100 ####[facility] [address] [place], [address] eGFR Normal >60 [facility] Comment on above: Result Comment: Canc elled via OM: Order cancelled - Patient discharged Performed By: #### L 500.2500, L100.0100 ####[facility] [address] [place], [address] GAP Normal 5-15 [facility] Comment on above: Result Comment: Canc elled via OM: Order cancelled - Patient discharged Performed By: #### L 500.2500, L100.0100 ####[facility] [address] [place], [address] GLU Normal 70-99 [facility] Comment on above: Result Comment: Canc elled via OM: Order cancelled - Patient discharged Performed By: #### L 500.2500, L100.0100 ####[facility] [address] [place], [address] Potassium Normal 3.3-5.1 [facility] Comment on above: Result Comment: Canc elled via OM: Order cancelled - Patient discharged Performed By: #### L 500.2500, L100.0100 ####[facility] [address] [place], [address] Basic Metabolic Profile (BMP) Normal 133-145 [facility] Comment on above: Result Comment: Canc elled via OM: Order cancelled - Patient discharged Performed By: #### L 500.2500, L100.0100 ####[facility] [address] [place], [address] CBC W/Diff, Automatedon 06-2 Absolute Neut Normal 2.0-7.7 [facility] Comment on above: Result Comment: Canc elled via OM: Order cancelled - Patient discharged Performed By: #### L 500.2500, L100.0100 ####[facility] [address] [place], [address] HCT Normal 37-47 [facility] Comment on above: Result Comment: Canc elled via OM: Order cancelled - Patient discharged Performed By: #### L 500.2500, L100.0100 ####[facility] [address] [place], [address] HGB Normal 12.0-15.0 [facility] Comment on above: Result Comment: Canc elled via OM: Order cancelled - Patient discharged Performed By: #### L 500.2500, L100.0100 ####[facility] [address] [place], [address] MCH Normal 27.0-32.0 [facility] Comment on above: Result Comment: Canc elled via OM: Order cancelled - Patient discharged Performed By: #### L 500.2500, L100.0100 ####[facility] [address] [place], [address] MCHC Normal 32-36 [facility] Comment on above: Result Comment: Canc elled via OM: Order cancelled - Patient discharged Performed By: #### L 500.2500, L100.0100 ####[facility] [address] [place], [address] MCV Normal 81-99 [facility] Comment on above: Result Comment: Canc elled via OM: Order cancelled - Patient discharged Performed By: #### L 500.2500, L100.0100 ####[facility] [address] [place], [address] NEUT% Normal 47-70 [facility] Comment on above: Result Comment: Canc elled via OM: Order cancelled - Patient discharged Performed By: #### L 500.2500, L100.0100 ####[facility] [address] [place], [address] PLT Normal 150-450 [facility] Comment on above: Result Comment: Canc elled via OM: Order cancelled - Patient discharged Performed By: #### L 500.2500, L100.0100 ####[facility] [address] [place], [address] RBC Normal 4.2-5.4 [facility] Comment on above: Result Comment: Canc elled via OM: Order cancelled - Patient discharged Performed By: #### L 500.2500, L100.0100 ####[facility] [address] [place], [address] RDW CV Normal 11.6-14.6 [facility] Comment on above: Result Comment: Canc elled via OM: Order cancelled - Patient discharged Performed By: #### L 500.2500, L100.0100 ####[facility] [address] [place], [address] RDW SD Normal 35.1-43.9 [facility] Comment on above: Result Comment: Canc elled via OM: Order cancelled - Patient discharged Performed By: #### L 500.2500, L100.0100 ####[facility] [address] [place], [address] WBC Normal 4.4-11.0 [facility] Comment on above: Result Comment: Canc elled via OM: Order cancelled - Patient discharged Performed By: #### L 500.2500, L100.0100 ####[facility] [address] [place], [address] CNOVon 09-16-2024 CNOV Normal [facility] Abdomen/Pelvis WITH Contrast on 09-13-2024 Abdomen/Pelvis WITH Contrast Normal [facility] CNPNon 09-13-2024 CNPN Normal [facility] Absolute lymphocyte countOrd ered By: Qamar Smith on 09-12-2024 Lymphocytes Auto (Unsp spec) [#/Vol] 2.30 10*3/uL 0.83-4.51 [facility] Absolute neutrophil countOrd ered By: Qamar Smith on 09-12-2024 Neutrophils (Bld) [#/Vol] 9.6 10*3/uL High 2.0-7.7 [facility] Anion gap in Serum or Plasma Ordered By: Qamar Smith on 09-12-2024 Anion gap [Moles/Vol] 12 mmol/L 5- [facility] Automated lymphocyte count a s percentage of total leukocytesOrdered By: Qamar Smith on 09-12-2024 Lymphocytes/100 WBC Auto (Unsp spec) 17.0 % Low - [facility] BUN/creatinine ratioOrdered By: Qamar Smith on 09-12-2024 Urea nitrogen/Creatinine [Mass ratio] 45.8 mg/mg High 10- [facility] Basic Metabolic Profile (BMP )on 09-12-2024 BUN/CRE 45.8 RATIO High 01-13 [facility] Comment on above: Performed By: #### L 500.2500, L100.0100 ####[facility] [address] [place], [address] Calcium [Mass/Vol] 8.9 mg/dL Normal 7.6-11.0 [facility] Comment on above: Performed By: #### L 500.2500, L100.0100 ####[facility] [address] [place], [address] Chloride [Moles/Vol] 99 mmol/L Normal 98-108 [facility] Comment on above: Performed By: #### L 500.2500, L100.0100 ####[facility] [address] [place], [address] CO2 [Moles/Vol] 27.6 mmol/L Normal 21.0-32.0 [facility] Comment on above: Performed By: #### L 500.2500, L100.0100 ####[facility] [address] [place], [address] Creatinine [Mass/Vol] 0.66 mg/dL Low 0.70-1.20 [facility] Comment on above: Performed By: #### L 500.2500, L100.0100 ####[facility] [address] [place], [address] ECRCL 44.28 ml/min Low 50-250 [facility] Comment on above: Performed By: #### L 500.2500, L100.0100 ####[facility] [address] [place], [address] GAP 12 Normal 5-15 [facility] Comment on above: Performed By: #### L 500.2500, L100.0100 ####[facility] [address] [place], [address] GFR/1.73 sq M.predicted among non-blacks MDRD (S/P/Bld) [Vol rate/Area] 97 mL/min/{1.73_m2} Normal >60 [facility] Comment on above: Result Comment: mL/m in/1.73m2 CKD-EPI Creatinine Equation (2020) Performed By: #### L 500.2500, L100.0100 ####[facility] [address] [place], [address] Glucose [Mass/Vol] 127 mg/dL High 70-99 [facility] Comment on above: Performed By: #### L 500.2500, L100.0100 ####[facility] [address] [place], [address] Potassium [Moles/Vol] 3.9 mmol/L Normal 3.3-5.1 [facility] Comment on above: Performed By: #### L 500.2500, L100.0100 ####[facility] [address] [place], [address] Sodium [Moles/Vol] 139 mmol/L Normal 133-145 [facility] Comment on above: Performed By: #### L 500.2500, L100.0100 ####[facility] [address] [place], [address] Urea nitrogen [Mass/Vol] 30 mg/dL High 4-19 [facility] Comment on above: Performed By: #### L 500.2500, L100.0100 ####[facility] [address] [place], [address] Basophil percentageOrdered B y: Qamar Smith on 09-12-2024 Basophils/100 WBC (Bld) 1.0 % 0-1 [facility] CBC W/Diff, Automatedon 08-25 Absolute Lymph 2.30 X10 3/uL Normal 0.83-4.51 [facility] Comment on above: Performed By: #### L 500.2500, L100.0100 ####[facility] [address] [place], [address] Absolute Neut 9.6 X10 3/uL High 2.0-7.7 [facility] Comment on above: Performed By: #### L 500.2500, L100.0100 ####[facility] [address] [place], [address] Basophils/100 WBC (Bld) 1.0 % Normal 0-1 [facility] Comment on above: Performed By: #### L 500.2500, L100.0100 ####[facility] [address] [place], [address] Eosinophils/100 WBC (Bld) 3.4 % Normal 0-5 [facility] Comment on above: Performed By: #### L 500.2500, L100.0100 ####[facility] [address] [place], [address] Erythrocyte distribution width (RBC) [Ratio] 13.9 % Normal 11.6-14.6 [facility] Comment on above: Performed By: #### L 500.2500, L100.0100 ####[facility] [address] [place], [address] Hematocrit (Bld) [Volume fraction] 38.1 % Normal 37-47 [facility] Comment on above: Performed By: #### L 500.2500, L100.0100 ####[facility] [address] [place], [address] Hemoglobin (Bld) [Mass/Vol] 12.8 g/dL Normal 12.0-15.0 [facility] Comment on above: Performed By: #### L 500.2500, L100.0100 ####[facility] [address] [place], [address] IG% 0.300 Normal 0.0-0.9 [facility] Comment on above: Result Comment: IG% - Immature Granulocytes (promyelocytes, myelocytes andmetamyelocytes) > 1% indicates that a LEFT SHIFT is Present. Performed By: #### L 500.2500, L100.0100 ####[facility] [address] [place], [address] Lymphocytes/100 WBC (Bld) 17.0 % Low 19-41 [facility] Comment on above: Performed By: #### L 500.2500, L100.0100 ####[facility] [address] [place], [address] MCH (RBC) [Entitic mass] 31.6 pg Normal 27.0-32.0 [facility] Comment on above: Performed By: #### L 500.2500, L100.0100 ####[facility] [address] [place], [address] MCHC (RBC) [Mass/Vol] 33.6 g/dL Normal 32-36 [facility] Comment on above: Performed By: #### L 500.2500, L100.0100 ####[facility] [address] [place], [address] MCV (RBC) [Entitic vol] 94.1 fL Normal 81-99 [facility] Comment on above: Performed By: #### L 500.2500, L100.0100 ####[facility] [address] [place], [address] Monocytes/100 WBC (Bld) 7.2 % Normal 0-10 [facility] Comment on above: Performed By: #### L 500.2500, L100.0100 ####[facility] [address] [place], [address] Neutrophils/100 WBC (Bld) 71.1 % High 47-70 [facility] Comment on above: Performed By: #### L 500.2500, L100.0100 ####[facility] [address] [place], [address] Nucleated RBC (Bld) [#/Vol] 0 10*3/uL Normal 0-5 [facility] Comment on above: Performed By: #### L 500.2500, L100.0100 ####[facility] [address] [place], [address] Platelet mean volume (Bld) [Entitic vol] 9.4 fL Normal 6.2-12.0 [facility] Comment on above: Performed By: #### L 500.2500, L100.0100 ####[facility] [address] [place], [address] Platelets (Bld) [#/Vol] 530 10*3/uL High 150-450 [facility] Comment on above: Performed By: #### L 500.2500, L100.0100 ####[facility] [address] [place], [address] RBC (Bld) [#/Vol] 4.05 10*6/uL Low 4.2-5.4 [facility] Comment on above: Performed By: #### L 500.2500, L100.0100 ####[facility] [address] [place], [address] RDW SD 47.8 fl High 35.1-43.9 [facility] Comment on above: Performed By: #### L 500.2500, L100.0100 ####[facility] [address] [place], [address] WBC (Bld) [#/Vol] 13.5 10*3/uL High 4.4-11.0 [facility] Comment on above: Performed By: #### L 500.2500, L100.0100 ####[facility] [address] [place], [address] Carbon dioxide, total [Moles /volume] in Central venous bloodOrdered By: Qamar Smith on 09-12-2024 CO2 [Moles/Vol] 27.6 mmol/L 21.0-32.0 [facility] Chloride assayOrdered By: Bhanu Smith on 09-12-2024 Chloride [Moles/Vol] 99 mmol/L 98-108 [facility] Eosinophil percentageOrdered By: Qamar Gallagherok on 09-12-2024 Eosinophils/100 WBC (Bld) 3.4 % 0-5 [facility] Erythrocyte distribution wid th ratioOrdered By: Qamar Smith on 09-12-2024 Erythrocyte distribution width (RBC) [Ratio] 13.9 % 11.6-14.6 [facility] Erythrocyte distribution wid th standard deviationOrdered By: Qamar Smith on 09-12-2024 Erythrocyte distribution width (RBC) [Ratio] 47.8 fl High 35.1-43.9 [facility] Glomerular filtration rate ( GFR) estimation/1.73 sq m using serum, plasma, or whole bOrdered By: Qamar Smith on 09-12-2024 GFR/1.73 sq M.predicted among non-blacks MDRD (S/P/Bld) [Vol rate/Area] 97 mL/min/{1.73_m2} >60 [facility] Comment on above: mL/min/1.73m2 CKD-EP I Creatinine Equation (2020) Hematocrit Auto (Bld) [Volum e fraction]Ordered By: Qamar Smith on 09-12-2024 Hematocrit (Bld) [Volume fraction] 38.1 % 37-47 [facility] Hemoglobin measurementOrdere d By: Qamar Smith 09-12-2024 Hemoglobin (Bld) [Mass/Vol] 12.8 g/dL 12.0-15.0 [facility] Immature granulocytes/100 WB C Auto (Bld)Ordered By: Qamar Smith 09-12-2024 Immature granulocytes/100 WBC (Bld) 0.300 % 0.0-0.9 [facility] Comment on above: IG% - Immature Granu locytes (promyelocytes, myelocytes and metamyelocytes) > 1% indicates that a LEFT SHIFT is Present. MCV (mean corpuscular volume ) determinationOrdered By: Qamar Smith 09-12-2024 MCV (RBC) [Entitic vol] 94.1 fL 81-99 [facility] Mean corpuscular hemoglobin (MCH) determinationOrdered By: Qamar Smith 09-12-2024 MCH (RBC) [Entitic mass] 31.6 pg 27.0-32.0 [facility] Mean corpuscular hemoglobin concentration (MCHC) determinationOrdered By: Qamar Smith 09-12-2024 MCHC (RBC) [Mass/Vol] 33.6 g/dL 32-36 [facility] Mean platelet volume determi nationOrdered By: Qamar Smith 09-12-2024 Platelet mean volume (Bld) [Entitic vol] 9.4 fL 6.2-12.0 [facility] Monocyte percentageOrdered B y: Qamar Smith 09-12-2024 Monocytes/100 WBC (Bld) 7.2 % 0-10 [facility] Neutrophil percentageOrdered By: Qamar Smith 09-12-2024 Neutrophils/100 WBC (Bld) 71.1 % High 47-70 [facility] Nucleated red blood cell per centageOrdered By: Qamar Smith on 09-12-2024 Nucleated RBC/100 WBC (Bld) [Ratio] 0 % 0-5 [facility] Platelet countOrdered By: Bhanu Smith on 09-12-2024 Platelets (Bld) [#/Vol] 530 10*3/uL High 150-450 [facility] Potassium measurement (mass/ volume)Ordered By: Qamar Smith on 09-12-2024 Potassium (Unsp spec) [Mass/Vol] 3.9 mmol/L 3.3-5.1 [facility] RBC Auto (Bld) [#/Vol]Ordere d By: Qamar Smith on 09-12-2024 RBC (Bld) [#/Vol] 4.05 10*6/uL Low 4.2-5.4 [facility] Serum creatinine measurement (mass/volume)Ordered By: Qamar Smith on 09-12-2024 Creatinine [Mass/Vol] 0.66 mg/dL Low 0.70-1.20 [facility] Serum glucose measurement (m ass/volume)Ordered By: Qamar Smith on 09-12-2024 Glucose [Mass/Vol] 127 mg/dL High 70-99 [facility] Serum or plasma calcium renetta urement (mass/volume)Ordered By: Qamar Smith on 09-12-2024 Calcium [Mass/Vol] 8.9 mg/dL 7.6-11.0 [facility] Serum or plasma urea nitroge n measurement (mass/volume)Ordered By: Qamar Smith on 09-12-2024 Urea nitrogen [Mass/Vol] 30 mg/dL High 4-19 [facility] Sodium levelOrdered By: Qamar Smith on 09-12-2024 Sodium [Moles/Vol] 139 mmol/L 133-145 [facility] White blood cell (WBC) count Ordered By: Qamar Smith on 09-12-2024 WBC (Bld) [#/Vol] 13.5 10*3/uL High 4.4-11.0 [facility] Basic Metabolic Profile (BMP )on 09-05-2024 BUN/CRE 44.4 RATIO High 10-20 [facility] Comment on above: Performed By: #### L 500.2500, L100.0100 ####[facility] [address] [place], [address] Calcium [Mass/Vol] 9.1 mg/dL Normal 7.6-11.0 [facility] Comment on above: Performed By: #### L 500.2500, L100.0100 ####[facility] [address] [place], [address] Chloride [Moles/Vol] 102 mmol/L Normal 98-108 [facility] Comment on above: Performed By: #### L 500.2500, L100.0100 ####[facility] [address] [place], [address] CO2 [Moles/Vol] 24.8 mmol/L Normal 21.0-32.0 [facility] Comment on above: Performed By: #### L 500.2500, L100.0100 ####[facility] [address] [place], [address] Creatinine [Mass/Vol] 0.52 mg/dL Low 0.70-1.20 [facility] Comment on above: Performed By: #### L 500.2500, L100.0100 ####[facility] [address] [place], [address] ECRCL 45.33 ml/min Low 50-250 [facility] Comment on above: Performed By: #### L 500.2500, L100.0100 ####[facility] [address] [place], [address] GAP 13 Normal 5-15 [facility] Comment on above: Performed By: #### L 500.2500, L100.0100 ####[facility] [address] [place], [address] GFR/1.73 sq M.predicted among non-blacks MDRD (S/P/Bld) [Vol rate/Area] 103 mL/min/{1.73_m2} Normal >60 [facility] Comment on above: Result Comment: mL/m in/1.73m2 CKD-EPI Creatinine Equation (2020) Performed By: #### L 500.2500, L100.0100 ####[facility] [address] [place], [address] Glucose [Mass/Vol] 88 mg/dL Normal 70-99 [facility] Comment on above: Performed By: #### L 500.2500, L100.0100 ####[facility] [address] [place], [address] Potassium [Moles/Vol] 4.1 mmol/L Normal 3.3-5.1 [facility] Comment on above: Performed By: #### L 500.2500, L100.0100 ####[facility] [address] [place], [address] Sodium [Moles/Vol] 139 mmol/L Normal 133-145 [facility] Comment on above: Performed By: #### L 500.2500, L100.0100 ####[facility] [address] [place], [address] Urea nitrogen [Mass/Vol] 23 mg/dL High 4-19 [facility] Comment on above: Performed By: #### L 500.2500, L100.0100 ####[facility] [address] [place], [address] CBC W/Diff, Automatedon 08-25 Absolute Lymph 1.63 X10 3/uL Normal 0.83-4.51 [facility] Comment on above: Performed By: #### L 500.2500, L100.0100 ####[facility] [address] [place], [address] Absolute Neut 5.9 X10 3/uL Normal 2.0-7.7 [facility] Comment on above: Performed By: #### L 500.2500, L100.0100 ####[facility] [address] [place], [address] Basophils/100 WBC (Bld) 1.2 % High 0-1 [facility] Comment on above: Performed By: #### L 500.2500, L100.0100 ####[facility] [address] [place], [address] Eosinophils/100 WBC (Bld) 7.5 % High 0-5 [facility] Comment on above: Performed By: #### L 500.2500, L100.0100 ####[facility] [address] [place], [address] Erythrocyte distribution width (RBC) [Ratio] 14.6 % Normal 11.6-14.6 [facility] Comment on above: Performed By: #### L 500.2500, L100.0100 ####[facility] [address] [place], [address] Hematocrit (Bld) [Volume fraction] 33.9 % Low 37-47 [facility] Comment on above: Performed By: #### L 500.2500, L100.0100 ####[facility] [address] [place], [address] Hemoglobin (Bld) [Mass/Vol] 11.3 g/dL Low 12.0-15.0 [facility] Comment on above: Performed By: #### L 500.2500, L100.0100 ####[facility] [address] [place], [address] IG% 1.100 High 0.0-0.9 [facility] Comment on above: Result Comment: IG% - Immature Granulocytes (promyelocytes, myelocytes andmetamyelocytes) > 1% indicates that a LEFT SHIFT is Present. Performed By: #### L 500.2500, L100.0100 ####[facility] [address] [place], [address] Lymphocytes/100 WBC (Bld) 17.4 % Low 19-41 [facility] Comment on above: Performed By: #### L 500.2500, L100.0100 ####[facility] [address] [place], [address] MCH (RBC) [Entitic mass] 31.9 pg Normal 27.0-32.0 [facility] Comment on above: Performed By: #### L 500.2500, L100.0100 ####[facility] [address] [place], [address] MCHC (RBC) [Mass/Vol] 33.3 g/dL Normal 32-36 [facility] Comment on above: Performed By: #### L 500.2500, L100.0100 ####[facility] [address] [place], [address] MCV (RBC) [Entitic vol] 95.8 fL Normal 81-99 [facility] Comment on above: Performed By: #### L 500.2500, L100.0100 ####[facility] [address] [place], [address] Monocytes/100 WBC (Bld) 10.3 % High 0-10 [facility] Comment on above: Performed By: #### L 500.2500, L100.0100 ####[facility] [address] [place], [address] Neutrophils/100 WBC (Bld) 62.5 % Normal 47-70 [facility] Comment on above: Performed By: #### L 500.2500, L100.0100 ####[facility] [address] [place], [address] Nucleated RBC (Bld) [#/Vol] 0 10*3/uL Normal 0-5 [facility] Comment on above: Performed By: #### L 500.2500, L100.0100 ####[facility] [address] [place], [address] Platelet mean volume (Bld) [Entitic vol] 9.2 fL Normal 6.2-12.0 [facility] Comment on above: Performed By: #### L 500.2500, L100.0100 ####[facility] [address] [place], [address] Platelets (Bld) [#/Vol] 363 10*3/uL Normal 150-450 [facility] Comment on above: Performed By: #### L 500.2500, L100.0100 ####[facility] [address] [place], [address] RBC (Bld) [#/Vol] 3.54 10*6/uL Low 4.2-5.4 [facility] Comment on above: Performed By: #### L 500.2500, L100.0100 ####[facility] [address] [place], [address] RDW SD 51.2 fl High 35.1-43.9 [facility] Comment on above: Performed By: #### L 500.2500, L100.0100 ####[facility] [address] [place], [address] WBC (Bld) [#/Vol] 9.4 10*3/uL Normal 4.4-11.0 [facility] Comment on above: Performed By: #### L 500.2500, L100.0100 ####[facility] [address] [place], [address] CASE MANAGEMon 09-04-2024 CASE MANAGEM Normal [facility] CBC panel Auto (Bld)on 09-04 Erythrocyte distribution width (RBC) [Ratio] 14.6 % Normal 11.5-15.0 [facility] Comment on above: Order Comment: Speci men Type: BLOOD SPECIMENOrdering Facility: [facility] Address: [address] [place] [address] Performed By: #### 5 8410-2 ####[facility]ORATORYCLIA [id number] [address] [place] Hematocrit (Bld) [Volume fraction] 34.1 % Low 36.0-46.0 [facility] Comment on above: Order Comment: Speci men Type: BLOOD SPECIMENOrdering Facility: [facility] Address: [address] [place] [address] Performed By: #### 5 8410-2 ####[facility]ORATORYCLIA [id number] [address] [place] Hemoglobin (Bld) [Mass/Vol] 11.1 g/dL Low 11.5-15.5 [facility] Comment on above: Order Comment: Speci men Type: BLOOD SPECIMENOrdering Facility: [facility] Address: [address] [place] [address] Performed By: #### 5 8410-2 ####[facility]ORATORYCLIA [id number] [address] [place] MCH (RBC) [Entitic mass] 30.9 pg Normal 26.0-34.0 [facility] Comment on above: Order Comment: Speci men Type: BLOOD SPECIMENOrdering Facility: [facility] Address: [address] [place] [address] Performed By: #### 5 8410-2 ####[facility]ORATORYCLIA [id number] [address] [place] MCHC (RBC) [Mass/Vol] 32.6 g/dL Normal 30.5-36.0 [facility] Comment on above: Order Comment: Speci men Type: BLOOD SPECIMENOrdering Facility: [facility] Address: [address] [place] [address] Performed By: #### 5 8410-2 ####[facility]ORATORYCLIA [id number] [place] [address] [place] MCV (RBC) [Entitic vol] 95.0 fL Normal 80.0-100.0 [facility] Comment on above: Order Comment: Speci men Type: BLOOD SPECIMENOrdering Facility: [facility] Address: [address] [place] [address] Performed By: #### 5 8410-2 ####[facility]ATORYCLIA [id number] [place] [id number] [place] Nucleated RBC (Bld) [#/Vol] 10*3/uL Normal <0.01 [facility] Comment on above: Order Comment: Speci men Type: BLOOD SPECIMENOrdering Facility: [facility] Address: [address] [place] [address] Performed By: #### 5 8410-2 ####[facility]ATORYCLIA [id number] [place] [address] [place] Platelet mean volume (Bld) [Entitic vol] 9.0 fL Normal 9.0-12.7 [facility] Comment on above: Order Comment: Speci men Type: BLOOD SPECIMENOrdering Facility: [facility] Address: [address] [place] [address] Performed By: #### 5 8410-2 ####[facility]ATORYCLIA [id number] [place] [address] [place] Platelets (Bld) [#/Vol] 347 10*3/uL Normal 150-400 [facility] Comment on above: Order Comment: Speci men Type: BLOOD SPECIMENOrdering Facility: [facility] Address: [address] [place] [address] Performed By: #### 5 8410-2 ####[facility]ATORYCLIA [id number] [place] [id number] [place] RBC (Bld) [#/Vol] 3.59 10*6/uL Low 3.90-5.20 [facility] Comment on above: Order Comment: Speci men Type: BLOOD SPECIMENOrdering Facility: [facility] Address: [address] [place] [address] Performed By: #### 5 8410-2 ####[facility]ATORYCLIA [id number] [place] [id number] [place] WBC (Bld) [#/Vol] 11.16 10*3/uL High 3.70-11.00 [facility] Comment on above: Order Comment: Speci men Type: BLOOD SPECIMENOrdering Facility: [facility] Address: [address] [place] [address] Performed By: #### 5 8410-2 ####[facility]ATORYCLIA [id number] [place] [id number] [place] CNDSon 09-04-2024 CNDS Normal [facility] CNPNon 09-04-2024 CNPN Normal [facility] Magnesium SerPl-mCncon 09-04 Magnesium [Mass/Vol] 2.0 mg/dL Normal 1.7-2.3 [facility] Comment on above: Order Comment: Speci men Type: BLOOD SPECIMENOrdering Facility: [facility] Address: [address] [place] [address] Performed By: #### 1 9123-9, 56590-9 ####[facility]ORATORYCLIA [id number] [place] [id number] [place] NURSING PROGon 09-04-2024 NURSING PROG Normal [facility] NURSING PROG Normal [facility] Renal function 2000 panelon 09-04-2024 Albumin [Mass/Vol] 3.5 g/dL Low 3.9-4.9 [facility] Comment on above: Order Comment: Speci men Type: BLOOD SPECIMENOrdering Facility: [facility] Address: [address] [place] [address] Performed By: #### 1 9123-9, 48973-4 ####[facility]ORATORYCLIA [id number] [place] [id number] [place] Anion gap [Moles/Vol] 9 mmol/L Normal 8-15 [facility] Comment on above: Order Comment: Speci men Type: BLOOD SPECIMENOrdering Facility: [facility] Address: [address] [place] [address] Performed By: #### 1 9123-9, 53539-8 ####[facility]ORATORYCLIA [id number] [place] [address] [place] Calcium [Mass/Vol] 8.5 mg/dL Normal 8.5-10.2 [facility] Comment on above: Order Comment: Speci men Type: BLOOD SPECIMENOrdering Facility: [facility] Address: [address] [address] Performed By: #### 1 9123-9, 28077-8 ####[facility]ORATORYCLIA [id number] [place] [id number] [place] Chloride [Moles/Vol] 106 mmol/L Normal 98-107 [facility] Comment on above: Order Comment: Speci men Type: BLOOD SPECIMENOrdering Facility: [facility] Address: [address] [address] Performed By: #### 1 9123-9, 18327-6 ####[facility]ORATORYCLIA [id number] [place] [id number] [place] CO2 [Moles/Vol] 24 mmol/L Normal 22-30 [facility] Comment on above: Order Comment: Speci men Type: BLOOD SPECIMENOrdering Facility: [facility] Address: [address] [place] [address] Performed By: #### 1 9123-9, 94574-3 ####[facility] LABORATORYCLIA [id number] [place] [id number] [place] Creatinine [Mass/Vol] 0.45 mg/dL Low 0.58-0.96 [facility] Comment on above: Order Comment: Speci men Type: BLOOD SPECIMENOrdering Facility: [facility] Address: [address] [place] [address] Performed By: #### 1 9123-9, 53143-1 ####[facility] LABORATORYCLIA [id number] [place] [id number] [place] Creatinine and Glomerular filtration rate.predicted panel (S/P/Bld) 107 mL/min/1.73m??? Normal >=60 [facility] Comment on above: Order Comment: Umesh baugh Type: BLOOD SPECIMENOrdering Facility: [facility] Address: [address] [place] [address] Result Comment: Sana mated Glomerular Filtration Rate [...] actual GFR. Performed By: #### 1 9123-9, 13749-7 ####[facility] LABORATORYCLIA [id number] [place] [address] [place] Glucose [Mass/Vol] 95 mg/dL Normal 74-99 [facility] Comment on above: Order Comment: Umesh baugh Type: BLOOD SPECIMENOrdering Facility: [facility] Address: [address] [place] [address] Result Comment: The [place] [employer] (ADA) provides guidance for cutoff [...] Standards of Medical Care in Diabetes 2016, [place] [employer]. Diabetes Care. 2016.39(Suppl 1). Performed By: #### 1 9123-9, 77988-9 ####[facility] LABORATORYCLIA [id number] [place] [id number] [place] Phosphate [Mass/Vol] 4.5 mg/dL Normal 2.7-4.8 [facility] Comment on above: Order Comment: Umesh baugh Type: BLOOD SPECIMENOrdering Facility: [facility] Address: [address] [place] [address] Performed By: #### 1 9123-9, 63817-2 ####[facility] LABORATORYCLIA [id number] [place] [id number] [place] Potassium [Moles/Vol] 4.4 mmol/L Normal 3.7-5.1 [facility] Comment on above: Order Comment: Speci men Type: BLOOD SPECIMENOrdering Facility: [facility] Address: [address] [place] [address] Performed By: #### 1 9123-9, 13523-8 ####[facility] LABORATORYCLIA [id number] [place] [id number] [place] Sodium [Moles/Vol] 139 mmol/L Normal 136-144 [facility] Comment on above: Order Comment: Speci men Type: BLOOD SPECIMENOrdering Facility: [facility] Address: [address] [place] [address] Performed By: #### 1 9123-9, 01802-0 ####[facility] LABORATORYCLIA [id number] [place] [address] [place] Urea nitrogen [Mass/Vol] 17 mg/dL Normal 7-21 [facility] Comment on above: Order Comment: Speci men Type: BLOOD SPECIMENOrdering Facility: [facility] Address: [address] [place] [address] Performed By: #### 1 9123-9, 64550-0 ####[facility] LABORATORYCLIA [id number] [place] [id number] [place] THERAPY NTon 09-04-2024 THERAPY NT Normal [facility] CBC panel Auto (Bld)on 09-03 Erythrocyte distribution width (RBC) [Ratio] 15.2 % High 11.5-15.0 [facility] Comment on above: Order Comment: Speci men Type: BLOOD SPECIMENOrdering Facility: [facility] Address: [address] [place] [address] Performed By: #### 5 8410-2 ####[facility] LABORATORYCLIA [id number] [place] [address] [place] Hematocrit (Bld) [Volume fraction] 32.1 % Low 36.0-46.0 [facility] Comment on above: Order Comment: Speci men Type: BLOOD SPECIMENOrdering Facility: [facility] Address: [address] [place] [address] Performed By: #### 5 8410-2 ####[facility] LABORATORYCLIA [id number] [address] [place] Hemoglobin (Bld) [Mass/Vol] 10.8 g/dL Low 11.5-15.5 [facility] Comment on above: Order Comment: Speci men Type: BLOOD SPECIMENOrdering Facility: [facility] Address: [address] [place] [address] Performed By: #### 5 8410-2 ####[facility] LABORATORYCLIA [id number] [address] [place] MCH (RBC) [Entitic mass] 31.9 pg Normal 26.0-34.0 [facility] Comment on above: Order Comment: Speci men Type: BLOOD SPECIMENOrdering Facility: [facility] Address: [address] [place] [address] Performed By: #### 5 8410-2 ####[facility] LABORATORYCLIA [id number] [address] MCHC (RBC) [Mass/Vol] 33.6 g/dL Normal 30.5-36.0 [facility] Comment on above: Order Comment: Speci men Type: BLOOD SPECIMENOrdering Facility: [facility] Address: [address] [place] [address] Performed By: #### 5 8410-2 ####[facility] LABORATORYCLIA [id number] [address] [place] MCV (RBC) [Entitic vol] 94.7 fL Normal 80.0-100.0 [facility] Comment on above: Order Comment: Speci men Type: BLOOD SPECIMENOrdering Facility: [facility] Address: [address] [place] [address] Performed By: #### 5 8410-2 ####[facility] LABORATORYCLIA [id number] [place] [id number] [place] Nucleated RBC (Bld) [#/Vol] 10*3/uL Normal <0.01 [facility] Comment on above: Order Comment: Speci men Type: BLOOD SPECIMENOrdering Facility: [facility] Address: [address] [place] [address] Performed By: #### 5 8410-2 ####[facility] LABORATORYCLIA [id number] [place] [id number] [place] Platelet mean volume (Bld) [Entitic vol] 9.3 fL Normal 9.0-12.7 [facility] Comment on above: Order Comment: Speci men Type: BLOOD SPECIMENOrdering Facility: [facility] Address: [address] [place] [address] Performed By: #### 5 8410-2 ####[facility] LABORATORYCLIA [id number] [place] [id number] [place] Platelets (Bld) [#/Vol] 332 10*3/uL Normal 150-400 [facility] Comment on above: Order Comment: Speci men Type: BLOOD SPECIMENOrdering Facility: [facility] Address: [address] [place] [address] Performed By: #### 5 8410-2 ####[facility] LABORATORYCLIA [id number] [place] [id number] [place] RBC (Bld) [#/Vol] 3.39 10*6/uL Low 3.90-5.20 [facility] Comment on above: Order Comment: Speci men Type: BLOOD SPECIMENOrdering Facility: [facility] Address: [address] [place] [address] Performed By: #### 5 8410-2 ####[facility] LABORATORYCLIA [id number] [place] [id number] [place] WBC (Bld) [#/Vol] 10.64 10*3/uL Normal 3.70-11.00 [facility] Comment on above: Order Comment: Speci men Type: BLOOD SPECIMENOrdering Facility: [facility] Address: [facility] [place] [id number] Performed By: #### 5 8410-2 ####[facility] LABORATORYCLIA [id number] [place] [address] [place] CNPNon 09-03-2024 CNPN Normal [facility] Magnesium SerPl-mCncon 09-03 Magnesium [Mass/Vol] 2.1 mg/dL Normal 1.7-2.3 [facility] Comment on above: Order Comment: Speci men Type: BLOOD SPECIMENOrdering Facility: [facility] Address: [address] [place] [address] Performed By: #### 2 4362-6, , 2570-10 ####[facility] LABORATORYCLIA [id number] [place] [id number] [place] NURSING PROGon 09-03-2024 NURSING PROG Normal [facility] NURSING PROG Normal [facility] NUTRITIONon 09-03-2024 NUTRITION Normal [facility] Renal function 2000 panelon 09-03-2024 Albumin [Mass/Vol] 3.3 g/dL Low 3.9-4.9 [facility] Comment on above: Order Comment: Speci men Type: BLOOD SPECIMENOrdering Facility: [facility] Address: [facility] [place] [address] Performed By: #### 2 4362-6, , 2570-10 ####[facility] LABORATORYCLIA [id number] [place] [id number] [place] Anion gap [Moles/Vol] 11 mmol/L Normal 8-15 [facility] Comment on above: Order Comment: Speci men Type: BLOOD SPECIMENOrdering Facility: [facility] Address: [facility] [place] [id number] Performed By: #### 2 4362-6, 28921-9, 2570-10 ####[facility] LABORATORYCLIA [id number] [place] [address] [place] Calcium [Mass/Vol] 8.8 mg/dL Normal 8.5-10.2 [facility] Comment on above: Order Comment: Speci men Type: BLOOD SPECIMENOrdering Facility: [facility] Address: [address] [place] [address] Performed By: #### 2 4362-6, , 2570-10 ####[facility] LABORATORYCLIA [id number] [place] [address] [place] Chloride [Moles/Vol] 102 mmol/L Normal 98-107 [facility] Comment on above: Order Comment: Speci men Type: BLOOD SPECIMENOrdering Facility: [facility] Address: [address] [place] [address] Performed By: #### 2 4362-6, , 2570-10 ####[facility] LABORATORYCLIA [id number] [place] [id number] [place] CO2 [Moles/Vol] 26 mmol/L Normal 22-30 [facility] Comment on above: Order Comment: Speci men Type: BLOOD SPECIMENOrdering Facility: [facility] Address: [address] [place] [address] Performed By: #### 2 4362-6, , 2570-10 ####[facility] LABORATORYCLIA [id number] [place] [id number] [place] Creatinine [Mass/Vol] 0.40 mg/dL Low 0.58-0.96 [facility] Comment on above: Order Comment: Speci men Type: BLOOD SPECIMENOrdering Facility: [facility] Address: [address] [place] [address] Performed By: #### 2 4362-6, , 2570-10 ####[facility] LABORATORYCLIA [id number] [place] [address] [place] Creatinine and Glomerular filtration rate.predicted panel (S/P/Bld) 110 mL/min/1.73m??? Normal >=60 [facility] Comment on above: Order Comment: Speci men Type: BLOOD SPECIMENOrdering Facility: [facility] Address: [address] [place] [address] Result Comment: Sana mated Glomerular Filtration Rate [...] actual GFR. Performed By: #### 2 4362-6, 42507-0, 2570-10 ####[facility] LABORATORYCLIA [id number] [place] [id number] [place] Glucose [Mass/Vol] 125 mg/dL High 74-99 [facility] Comment on above: Order Comment: Umesh baugh Type: BLOOD SPECIMENOrdering Facility: [facility] Address: [address] [place] [address] Result Comment: The [place] Diabetes [employer] (ADA) provides guidance for cutoff [...] Standards of Medical Care in Diabetes 2016, [place] [employer]. Diabetes Care. 2016.39(Suppl 1). Performed By: #### 2 4362-6, , 2570-10 ####[facility] LABORATORYCLIA [id number] [place] [address] [place] Phosphate [Mass/Vol] 4.0 mg/dL Normal 2.7-4.8 [facility] Comment on above: Order Comment: Umesh baugh Type: BLOOD SPECIMENOrdering Facility: [facility] Address: [address] [place] [id number] Performed By: #### 2 4362-6, 54563-2, 2570-10 ####[facility] LABORATORYCLIA [id number] [place] [address] [place] Potassium [Moles/Vol] 4.6 mmol/L Normal 3.7-5.1 [facility] Comment on above: Order Comment: Speci men Type: BLOOD SPECIMENOrdering Facility: [facility] Address: [address] [place] [address] Performed By: #### 2 4362-6, 03608-2, 2570-8 ####[facility] LABORATORYCLIA [id number] [place] [id number] [place] Sodium [Moles/Vol] 139 mmol/L Normal 136-144 [facility] Comment on above: Order Comment: Speci men Type: BLOOD SPECIMENOrdering Facility: [facility] Address: [address] [place] [address] Performed By: #### 2 4362-6, 95672-5, 8 ####[facility] LABORATORYCLIA [id number] [place] [id number] [place] Urea nitrogen [Mass/Vol] 13 mg/dL Normal 7-21 [facility] Comment on above: Order Comment: Speci men Type: BLOOD SPECIMENOrdering Facility: [facility] Address: [address] [place] [address] Performed By: #### 2 4362-6, 41454-9, 8 ####[facility] LABORATORYCLIA [id number] [place] [id number] [place] THERAPY NTon 09-03-2024 THERAPY NT Normal [facility] Trigl SerPl-mCncon Triglyceride [Mass/Vol] 145 mg/dL Normal <150 [facility] Comment on above: Order Comment: Speci men Type: BLOOD SPECIMENOrdering Facility: [facility] Address: [address] [place] [address] Result Comment: <150 mg/dL, Normal 150-199 mg/dL, Borderline high 200-499 mg/dL, High>499 mg/dL, Very highReference:1. National Cholesterol Education Program ATP III Guideline At-A-Glance Quick Desk Reference: National Heart, Lung, and Blood [place]. National Institutes of Health. 2001: [facility] Publication No. 01-3305. Performed By: #### 2 4362-6, 40406-1, 2570-10 ####[facility] LABORATORYCLIA [id number] [place] [address] [place] Triglyceride [Mass/Vol]on FASTING TIME 5 hrs Normal [facility] Comment on above: Order Comment: Speci men Type: BLOOD SPECIMENOrdering Facility: [facility] Address: [address] [place] [address] Performed By: #### 2 4362-6, , 2570-10 ####[facility] LABORATORYCLIA [id number] [place] [address] [place] ALLIED HEALTHon 09-02-2024 ALLIED HEALTH Normal [facility] Basic metabolic 2000 panelon 09-02-2024 Anion gap [Moles/Vol] 12 mmol/L Normal 8-15 [facility] Comment on above: Order Comment: Speci men Type: BLOOD SPECIMENOrdering Facility: [facility] Address: [address] [place], [place] [address] Performed By: #### 2 4325-3, 42496-5, 1987-07, ####[facility] LABORATORYCLIA [id number] [place] [address] [place] Calcium [Mass/Vol] 8.3 mg/dL Low 8.5-10.2 [facility] Comment on above: Order Comment: Speci men Type: BLOOD SPECIMENOrdering Facility: [facility] Address: [facility] [place] [phone] Performed By: #### 2 4325-3, 62845-9, 1987-07, ####[facility] LABORATORYCLIA [id number] [place] [address] [place] Chloride [Moles/Vol] 98 mmol/L Normal 98-107 [facility] Comment on above: Order Comment: Speci men Type: BLOOD SPECIMENOrdering Facility: [facility] Address: [facility] [place] [id number] Performed By: #### 2 4325-3, 47512-0, ####[facility] LABORATORYCLIA [id number] [place] [address] [place] CO2 [Moles/Vol] 28 mmol/L Normal 22-30 [facility] Comment on above: Order Comment: Speci men Type: BLOOD SPECIMENOrdering Facility: [facility] Address: [address] [place] [address] Performed By: #### 2 4325-3, 73102-0, ####[facility] LABORATORYCLIA [id number] [place] [address] [place] Creatinine [Mass/Vol] 0.37 mg/dL Low 0.58-0.96 [facility] Comment on above: Order Comment: Speci men Type: BLOOD SPECIMENOrdering Facility: [facility] Address: [address] [place] [address] Performed By: #### 2 4325-3, , ####[facility] LABORATORYCLIA [id number] [place] [id number] [place] Creatinine and Glomerular filtration rate.predicted panel (S/P/Bld) 112 mL/min/1.73m??? Normal >=60 [facility] Comment on above: Order Comment: Speci [facility] Type: BLOOD SPECIMENOrdering Facility: [facility] Address: [address] [place] [address] Result Comment: Sana mated Glomerular Filtration Rate [...] actual GFR. Performed By: #### 2 4325-3, 86568-4, ####[facility] LABORATORYCLIA [id number] [place] [address] [place] Glucose [Mass/Vol] 108 mg/dL High 74-99 [facility] Comment on above: Order Comment: Speci lupis Type: BLOOD SPECIMENOrdering Facility: [facility] Address: [address] [place] [address] Result Comment: The [place] Diabetes Association (ADA) provides guidance for cutoff [...] Standards of Medical Care in Diabetes 2016, [place] [employer]. Diabetes Care. 2016.39(Suppl 1). Performed By: #### 2 4325-3, , ####EM[facility] LABORATORYCLIA [id number] [place] [id number] [place] Potassium [Moles/Vol] 3.1 mmol/L Low 3.7-5.1 [facility] Comment on above: Order Comment: Umesh baugh Type: BLOOD SPECIMENOrdering Facility: [facility] Address: [address] [place] [address] Performed By: #### 2 4325-3, , ####EM[facility] LABORATORYCLIA [id number] [place] [id number] [place] Sodium [Moles/Vol] 138 mmol/L Normal 136-144 [facility] Comment on above: Order Comment: Umesh lupis Type: BLOOD SPECIMENOrdering Facility: [facility] Address: [address] [place] [address] Performed By: #### 2 4325-3, , ####[facility] LABORATORYCLIA [id number] [place] [address] [place] Urea nitrogen [Mass/Vol] 13 mg/dL Normal 7-21 [facility] Comment on above: Order Comment: Speci men Type: BLOOD SPECIMENOrdering Facility: [facility] Address: [address] [place] [address] Performed By: #### 2 4325-3, 71666-4, 1987-5, 51616-5 ####[facility] LABORATORYCLIA [id number] [place] [id number] [place] [facility] CASE MANAGEMon 09-02-2024 CASE MANAGEM Normal [facility] CBC panel Auto (Bld)on 09-02 Erythrocyte distribution width (RBC) [Ratio] 15.8 % High 11.5-15.0 [facility] Comment on above: Order Comment: Speci men Type: BLOOD SPECIMENOrdering Facility: [facility] Address: [address] [place] [address] Performed By: #### 5 8410-2 ####[facility] LABORATORYCLIA [id number] [place] [id number] [place] Hematocrit (Bld) [Volume fraction] 30.7 % Low 36.0-46.0 [facility] Comment on above: Order Comment: Speci men Type: BLOOD SPECIMENOrdering Facility: [facility] Address: [address] [place] [address] Performed By: #### 5 8410-2 ####[facility] LABORATORYCLIA [id number] [place] [id number] [place] Hemoglobin (Bld) [Mass/Vol] 10.6 g/dL Low 11.5-15.5 [facility] Comment on above: Order Comment: Speci men Type: BLOOD SPECIMENOrdering Facility: [facility] Address: [address] [place] [address] Performed By: #### 5 8410-2 ####[facility] LABORATORYCLIA [id number] [place] [address] [place] MCH (RBC) [Entitic mass] 32.8 pg Normal 26.0-34.0 [facility] Comment on above: Order Comment: Speci men Type: BLOOD SPECIMENOrdering Facility: [facility] Address: [address] [place] [address] Performed By: #### 5 8410-2 ####[facility] LABORATORYCLIA [id number] [place] [id number] [place] MCHC (RBC) [Mass/Vol] 34.5 g/dL Normal 30.5-36.0 [facility] Comment on above: Order Comment: Speci men Type: BLOOD SPECIMENOrdering Facility: [facility] Address: [address] [place] [address] Performed By: #### 5 8410-2 ####[facility] LABORATORYCLIA [id number] [place] [address] [place] MCV (RBC) [Entitic vol] 95.0 fL Normal 80.0-100.0 [facility] Comment on above: Order Comment: Speci men Type: BLOOD SPECIMENOrdering Facility: [facility] Address: [address] [place] [address] Performed By: #### 5 8410-2 ####[facility] LABORATORYCLIA [id number] [place] [address] [place] Nucleated RBC (Bld) [#/Vol] 10*3/uL Normal <0.01 [facility] Comment on above: Order Comment: Speci men Type: BLOOD SPECIMENOrdering Facility: [facility] Address: [address] [place] [address] Performed By: #### 5 8410-2 ####[facility] LABORATORYCLIA [id number] [place] [address] [place] Platelet mean volume (Bld) [Entitic vol] 9.9 fL Normal 9.0-12.7 [facility] Comment on above: Order Comment: Speci men Type: BLOOD SPECIMENOrdering Facility: [facility] Address: [address] [place] [address] Performed By: #### 5 8410-2 ####[facility] LABORATORYCLIA [id number] [place] [address] [place] Platelets (Bld) [#/Vol] 345 10*3/uL Normal 150-400 [facility] Comment on above: Order Comment: Speci men Type: BLOOD SPECIMENOrdering Facility: [facility] Address: [address] [place] [address] Performed By: #### 5 8410-2 ####[facility] LABORATORYCLIA [id number] [place] [id number] [place] RBC (Bld) [#/Vol] 3.23 10*6/uL Low 3.90-5.20 [facility] Comment on above: Order Comment: Speci men Type: BLOOD SPECIMENOrdering Facility: [facility] Address: [address] [place] [address] Performed By: #### 5 8410-2 ####[facility] LABORATORYCLIA [id number] [place] [address] [place] WBC (Bld) [#/Vol] 9.39 10*3/uL Normal 3.70-11.00 [facility] Comment on above: Order Comment: Speci men Type: BLOOD SPECIMENOrdering Facility: [facility] Address: [address] [place] [address] Performed By: #### 5 8410-2 ####[facility] LABORATORYCLIA [id number] [place] [id number] [place] CRP SerPl-mCncon 09-02-2024 CRP [Mass/Vol] 1.9 mg/dL High <0.9 [facility] Comment on above: Order Comment: Speci men Type: BLOOD SPECIMENOrdering Facility: [facility] Address: [address] [place] [address] Performed By: #### 2 4325-3, 92957-7, 1987-5, 44848-6 ####[facility] LABORATORYCLIA [id number] [place] [id number] [place] Hepatic function 2000 panelo n 09-02-2024 Albumin [Mass/Vol] 2.9 g/dL Low 3.9-4.9 [facility] Comment on above: Order Comment: Speci men Type: BLOOD SPECIMENOrdering Facility: [facility] Address: [address] [place] [address] [place] [address] Performed By: #### 2 4325-3, 52669-8, 1987-07, ####[facility] LABORATORYCLIA [id number] [place] [address] [place] ALP [Catalytic activity/Vol] 55 U/L Normal 34-123 [facility] Comment on above: Order Comment: Speci men Type: BLOOD SPECIMENOrdering Facility: [facility] Address: [address] [place] [address] Performed By: #### 2 4325-3, 73564-1, 1987-07, ####[facility] LABORATORYCLIA [id number] [place] [id number] [place] ALT [Catalytic activity/Vol] 9 U/L Normal 7-38 [facility] Comment on above: Order Comment: Speci men Type: BLOOD SPECIMENOrdering Facility: [facility] Address: [address] [place], [place] [address] Performed By: #### 2 4324-3, , 1987-07, ####[facility] LABORATORYCLIA [id number] [place] [id number] [place] AST [Catalytic activity/Vol] 16 U/L Normal 13-35 [facility] Comment on above: Order Comment: Speci men Type: BLOOD SPECIMENOrdering Facility: [facility] Address: [address] [place] [address] Performed By: #### 2 4324-3, , 1987-07, ####[facility] LABORATORYCLIA [id number] [place] [address] [place] Bilirubin [Mass/Vol] 0.4 mg/dL Normal 0.2-1.3 [facility] Comment on above: Order Comment: Speci men Type: BLOOD SPECIMENOrdering Facility: [facility] Address: [address] [place] [address] Performed By: #### 2 4325-3, 29319-1, 1987-07, ####[facility] LABORATORYCLIA [id number] [place] [address] [place] Bilirubin.conjugated [Mass/Vol] 0.1 mg/dL Normal <0.3 [facility] Comment on above: Order Comment: Speci men Type: BLOOD SPECIMENOrdering Facility: [facility] Address: [address] [place] [address] Performed By: #### 2 4325-3, 11900-2, 1987-07, ####[facility]ATORYCLIA [id number] [place] [id number] [place] Protein [Mass/Vol] 5.4 g/dL Low 6.3-8.0 [facility] Comment on above: Order Comment: Speci men Type: BLOOD SPECIMENOrdering Facility: [facility] Address: [address] [place] [address] Performed By: #### 2 4325-3, 18448-9, 1987-07, ####[facility]ORATORYCLIA [id number] [place] [id number] [place] Magnesium SerPl-ncon 09-02 Magnesium [Mass/Vol] 1.8 mg/dL Normal 1.7-2.3 [facility] Comment on above: Order Comment: Speci men Type: BLOOD SPECIMENOrdering Facility: [facility] Address: [address] [place] [address] Performed By: #### 2 4325-3, 78412-4, 1987-07, ####[facility] LABORATORYCLIA [id number] [place] [id number] [place] NUTRITIONon 09-02-2024 NUTRITION Normal [facility] Phosphate SerPl-mCncon 09-02 Phosphate [Mass/Vol] 4.0 mg/dL Normal 2.7-4.8 [facility] Comment on above: Order Comment: Speci men Type: BLOOD SPECIMENOrdering Facility: [facility] Address: [address] [place] [address] Performed By: #### 2 777-1 ####[facility] LABORATORYCLIA [id number] [place] [id number] [place] THERAPY NTon 09-02-2024 THERAPY NT Normal [facility] THERAPY NT Normal [facility] XR ABDOMEN 1V SUPINEon 09-02 XR ABDOMEN 1V SUPINE Normal [facility] CBC panel Auto (Bld)on 09-01 Erythrocyte distribution width (RBC) [Ratio] 16.4 % High 11.5-15.0 [facility] Comment on above: Order Comment: Speci men Type: BLOOD SPECIMENOrdering Facility: [facility] Address: [address] [place] [address] Performed By: #### 5 8410-2 ####[facility] LABORATORYCLIA [id number] [address] Hematocrit (Bld) [Volume fraction] 32.8 % Low 36.0-46.0 [facility] Comment on above: Order Comment: Speci men Type: BLOOD SPECIMENOrdering Facility: [facility] Address: [address] [place] [address] Performed By: #### 5 8410-2 ####[facility] LABORATORYCLIA [id number] [address] [place] Hemoglobin (Bld) [Mass/Vol] 11.3 g/dL Low 11.5-15.5 [facility] Comment on above: Order Comment: Speci men Type: BLOOD SPECIMENOrdering Facility: [facility] Address: [address] [place] [address] Performed By: #### 5 8410-2 ####[facility] LABORATORYCLIA [id number] [address] [place] MCH (RBC) [Entitic mass] 31.5 pg Normal 26.0-34.0 [facility] Comment on above: Order Comment: Speci men Type: BLOOD SPECIMENOrdering Facility: [facility] Address: [address] [place] [address] Performed By: #### 5 8410-2 ####[facility] LABORATORYCLIA [id number] [address] [place] MCHC (RBC) [Mass/Vol] 34.5 g/dL Normal 30.5-36.0 [facility] Comment on above: Order Comment: Speci men Type: BLOOD SPECIMENOrdering Facility: [facility] Address: [address] [place] [address] Performed By: #### 5 8410-2 ####[facility] LABORATORYCLIA [id number] [place] [id number] [place] MCV (RBC) [Entitic vol] 91.4 fL Normal 80.0-100.0 [facility] Comment on above: Order Comment: Speci men Type: BLOOD SPECIMENOrdering Facility: [facility] Address: [address] [place] [address] Performed By: #### 5 8410-2 ####[facility] LABORATORYCLIA [id number] [place] [address] [place] Nucleated RBC (Bld) [#/Vol] 10*3/uL Normal <0.01 [facility] Comment on above: Order Comment: Speci men Type: BLOOD SPECIMENOrdering Facility: [facility] Address: [address] [place] [address] Performed By: #### 5 8410-2 ####[facility] LABORATORYCLIA [id number] [place] [address] [place] Platelet mean volume (Bld) [Entitic vol] 9.9 fL Normal 9.0-12.7 [facility] Comment on above: Order Comment: Speci men Type: BLOOD SPECIMENOrdering Facility: [facility] Address: [address] [place] [address] Performed By: #### 5 8410-2 ####[facility] LABORATORYCLIA [id number] [place] [id number] [place] Platelets (Bld) [#/Vol] 346 10*3/uL Normal 150-400 [facility] Comment on above: Order Comment: Speci men Type: BLOOD SPECIMENOrdering Facility: [facility] Address: [address] [place] [address] Performed By: #### 5 8410-2 ####[facility] LABORATORYCLIA [id number] [place] [id number] [place] RBC (Bld) [#/Vol] 3.59 10*6/uL Low 3.90-5.20 [facility] Comment on above: Order Comment: Speci men Type: BLOOD SPECIMENOrdering Facility: [facility] Address: [address] [place] [address] Performed By: #### 5 8410-2 ####[facility] LABORATORYCLIA [id number] [place] [id number] [place] WBC (Bld) [#/Vol] 9.45 10*3/uL Normal 3.70-11.00 [facility] Comment on above: Order Comment: Speci men Type: BLOOD SPECIMENOrdering Facility: [facility] Address: [address] [place] [address] Performed By: #### 5 8410-2 ####[facility] LABORATORYCLIA [id number] [place] [address] [facility] [place] CONSULT PROGon 09-01-2024 CONSULT PROG Normal [facility] Magnesium SerPl-mCncon 09-01 Magnesium [Mass/Vol] 1.8 mg/dL Normal 1.7-2.3 [facility] Comment on above: Order Comment: Speci men Type: BLOOD SPECIMENOrdering Facility: [facility] Address: [address] [place] [address] Performed By: #### 2 4362-6, 60757-3 ####[facility] LABORATORYCLIA [id number] [place] [id number] [place] Renal function 2000 panelon 09-01-2024 Albumin [Mass/Vol] 2.7 g/dL Low 3.9-4.9 [facility] Comment on above: Order Comment: Speci men Type: BLOOD SPECIMENOrdering Facility: [facility] Address: [address] [place] [address] Performed By: #### 2 4362-6, 77706-9 ####[facility] LABORATORYCLIA [id number] [place] [id number] [place] Anion gap [Moles/Vol] 9 mmol/L Normal 8-15 [facility] Comment on above: Order Comment: Speci men Type: BLOOD SPECIMENOrdering Facility: [facility] Address: [address] [place] [id number] Performed By: #### 2 4362-6, ####[facility] LABORATORYCLIA [id number] [place] [address] [place] Calcium [Mass/Vol] 8.0 mg/dL Low 8.5-10.2 [facility] Comment on above: Order Comment: Speci men Type: BLOOD SPECIMENOrdering Facility: [facility] Address: [address] [place] [address] Performed By: #### 2 4366, ####[facility] LABORATORYCLIA [id number] [place] [id number] [place] Chloride [Moles/Vol] 101 mmol/L Normal 98-107 [facility] Comment on above: Order Comment: Speci men Type: BLOOD SPECIMENOrdering Facility: [facility] Address: [address] [place] [id number] Performed By: #### 2 4366, ####[facility] LABORATORYCLIA [id number] [place] [id number] [place] CO2 [Moles/Vol] 28 mmol/L Normal 22-30 [facility] Comment on above: Order Comment: Speci men Type: BLOOD SPECIMENOrdering Facility: [facility] Address: [address] [place] [place] [id number] Performed By: #### 2 4362-6, ####[facility] LABORATORYCLIA [id number] [place] [address] [place] Creatinine [Mass/Vol] 0.40 mg/dL Low 0.58-0.96 [facility] Comment on above: Order Comment: Speci men Type: BLOOD SPECIMENOrdering Facility: [facility] Address: [address] [facility] [address] [phone] Performed By: #### 2 4362-6, ####[facility] LABORATORYCLIA [id number] [place] [id number] [place] Creatinine and Glomerular filtration rate.predicted panel (S/P/Bld) 110 mL/min/1.73m??? Normal >=60 [facility] Comment on above: Order Comment: Umesh baugh Type: BLOOD SPECIMENOrdering Facility: [facility] Address: [address] [place] [address] Result Comment: Sana mated Glomerular Filtration Rate [...] actual GFR. Performed By: #### 2 4362-6, ####[facility] LABORATORYCLIA [id number] [place] [address] [place] Glucose [Mass/Vol] 106 mg/dL High 74-99 [facility] Comment on above: Order Comment: Uemsh baugh Type: BLOOD SPECIMENOrdering Facility: [facility] Address: [address] [place] [address] Result Comment: The [place] [employer] (ADA) provides guidance for cutoff [...] Standards of Medical Care in Diabetes 2016, [place] [employer]. Diabetes Care. 2016.39(Suppl 1). Performed By: #### 2 4362-6, ####[facility] LABORATORYCLIA [id number] [place] [id number] [place] Phosphate [Mass/Vol] 4.0 mg/dL Normal 2.7-4.8 [facility] Comment on above: Order Comment: Speci men Type: BLOOD SPECIMENOrdering Facility: [facility] Address: [address] [place] [address] Performed By: #### 2 4362-6, ####[facility] LABORATORYCLIA [id number] [place] [address] [place] Potassium [Moles/Vol] 3.4 mmol/L Low 3.7-5.1 [facility] Comment on above: Order Comment: Speci men Type: BLOOD SPECIMENOrdering Facility: [facility] Address: [address] [place] [address] Performed By: #### 2 4362-6, ####[facility] LABORATORYCLIA [id number] [place] [id number] [place] Sodium [Moles/Vol] 138 mmol/L Normal 136-144 [facility] Comment on above: Order Comment: Speci men Type: BLOOD SPECIMENOrdering Facility: [facility] Address: [address] [place] [address] Performed By: #### 2 4362-6, ####[facility] LABORATORYCLIA [id number] [place] [id number] [place] Urea nitrogen [Mass/Vol] 10 mg/dL Normal 7-21 [facility] Comment on above: Order Comment: Speci men Type: BLOOD SPECIMENOrdering Facility: [facility] Address: [address] [place] [address] Performed By: #### 2 4362-6, ####[facility] LABORATORYCLIA [id number] [place] [id number] [place] CBC panel Auto (Bld)on 08-31 Erythrocyte distribution width (RBC) [Ratio] 17.1 % High 11.5-15.0 [facility] Comment on above: Order Comment: Speci men Type: BLOOD SPECIMENOrdering Facility: [facility] Address: [address] [place] [address] Performed By: #### 5 8410-2 ####[facility] LABORATORYCLIA [id number] [place] [address] [place] Hematocrit (Bld) [Volume fraction] 30.9 % Low 36.0-46.0 [facility] Comment on above: Order Comment: Speci men Type: BLOOD SPECIMENOrdering Facility: [facility] Address: [address] [place] [address] Performed By: #### 5 8410-2 ####[facility] LABORATORYCLIA [id number] [place] [address] [place] Hemoglobin (Bld) [Mass/Vol] 10.6 g/dL Low 11.5-15.5 [facility] Comment on above: Order Comment: Speci men Type: BLOOD SPECIMENOrdering Facility: [facility] Address: [address] [place] [address] Performed By: #### 5 8410-2 ####[facility] LABORATORYCLIA [id number] [place] [address] [place] MCH (RBC) [Entitic mass] 31.0 pg Normal 26.0-34.0 [facility] Comment on above: Order Comment: Speci men Type: BLOOD SPECIMENOrdering Facility: [facility] Address: [address] [place] [address] Performed By: #### 5 8410-2 ####[facility] LABORATORYCLIA [id number] [place] [address] [place] MCHC (RBC) [Mass/Vol] 34.3 g/dL Normal 30.5-36.0 [facility] Comment on above: Order Comment: Speci men Type: BLOOD SPECIMENOrdering Facility: [facility] Address: [address] [place] [address] Performed By: #### 5 8410-2 ####[facility] LABORATORYCLIA [id number] [address] [place] MCV (RBC) [Entitic vol] 90.4 fL Normal 80.0-100.0 [facility] Comment on above: Order Comment: Speci men Type: BLOOD SPECIMENOrdering Facility: [facility] Address: [address] [place] [address] Performed By: #### 5 8410-2 ####[facility] LABORATORYCLIA [id number] [place] [id number] [place] Nucleated RBC (Bld) [#/Vol] 10*3/uL Normal <0.01 [facility] Comment on above: Order Comment: Speci men Type: BLOOD SPECIMENOrdering Facility: [facility] Address: [address] [place] [address] Performed By: #### 5 8410-2 ####[facility] LABORATORYCLIA [id number] [place] [id number] [place] Platelet mean volume (Bld) [Entitic vol] 9.5 fL Normal 9.0-12.7 [facility] Comment on above: Order Comment: Speci men Type: BLOOD SPECIMENOrdering Facility: [facility] Address: [address] [place] [address] Performed By: #### 5 8410-2 ####[facility] LABORATORYCLIA [id number] [place] [address] [place] Platelets (Bld) [#/Vol] 322 10*3/uL Normal 150-400 [facility] Comment on above: Order Comment: Speci men Type: BLOOD SPECIMENOrdering Facility: [facility] Address: [address] [place] [address] Performed By: #### 5 8410-2 ####[facility] LABORATORYCLIA [id number] [place] [id number] [place] RBC (Bld) [#/Vol] 3.42 10*6/uL Low 3.90-5.20 [facility] Comment on above: Order Comment: Speci men Type: BLOOD SPECIMENOrdering Facility: [facility] Address: [address] [place] [address] Performed By: #### 5 8410-2 ####[facility] LABORATORYCLIA [id number] [place] [id number] [place] WBC (Bld) [#/Vol] 9.51 10*3/uL Normal 3.70-11.00 [facility] Comment on above: Order Comment: Speci men Type: BLOOD SPECIMENOrdering Facility: [facility] Address: [address] [place] [address] Performed By: #### 5 8410-2 ####[facility] LABORATORYCLIA [id number] [place] [id number] [place] CONSULT PROGon 08-31-2024 CONSULT PROG Normal [facility] Magnesium SerPl-mCncon 08-31 Magnesium [Mass/Vol] 2.0 mg/dL Normal 1.7-2.3 [facility] Comment on above: Order Comment: Speci men Type: BLOOD SPECIMENOrdering Facility: [facility] Address: [address] [place] [address] Performed By: #### 2 4362-6, 38038-2 ####[facility] LABORATORYCLIA [id number] [place] [id number] [place] NUTRITIONon 08-31-2024 NUTRITION Normal [facility] Renal function 2000 panelon 08-31-2024 Albumin [Mass/Vol] 2.7 g/dL Low 3.9-4.9 [facility] Comment on above: Order Comment: Speci men Type: BLOOD SPECIMENOrdering Facility: [facility] Address: [address] [place] [address] Performed By: #### 2 4362-6, ####[facility] LABORATORYCLIA [id number] [place] [id number] [place] Anion gap [Moles/Vol] 11 mmol/L Normal 8-15 [facility] Comment on above: Order Comment: Speci men Type: BLOOD SPECIMENOrdering Facility: [facility] Address: [address] [place] [address] Performed By: #### 2 4362-6, ####[facility] LABORATORYCLIA [id number] [place] [id number] [place] Calcium [Mass/Vol] 8.0 mg/dL Low 8.5-10.2 [facility] Comment on above: Order Comment: Speci men Type: BLOOD SPECIMENOrdering Facility: [facility] Address: [address] [place] [address] Performed By: #### 2 4362-6, ####[facility] LABORATORYCLIA [id number] [place] [id number] [place] Chloride [Moles/Vol] 104 mmol/L Normal 98-107 [facility] Comment on above: Order Comment: Speci men Type: BLOOD SPECIMENOrdering Facility: [facility] Address: [address] [place] [address] Performed By: #### 2 4362-6, ####[facility] LABORATORYCLIA [id number] [place] [id number] [place] CO2 [Moles/Vol] 27 mmol/L Normal 22-30 [facility] Comment on above: Order Comment: Speci men Type: BLOOD SPECIMENOrdering Facility: [facility] Address: [address] [place] [address] Performed By: #### 2 4362-6, ####[facility] LABORATORYCLIA [id number] [place] [id number] [place] Creatinine [Mass/Vol] 0.49 mg/dL Low 0.58-0.96 [facility] Comment on above: Order Comment: Speci men Type: BLOOD SPECIMENOrdering Facility: [facility] Address: [address] [place] [address] Performed By: #### 2 4362-6, ####[facility] LABORATORYCLIA [id number] [place] [id number] [place] Creatinine and Glomerular filtration rate.predicted panel (S/P/Bld) 105 mL/min/1.73m??? Normal >=60 [facility] Comment on above: Order Comment: Speci men Type: BLOOD SPECIMENOrdering Facility: [facility] Address: [address] [place] [address] Result Comment: Sana mated Glomerular Filtration Rate [...] Performed By: #### 2 4362-6, ####EM[facility] LABORATORYCLIA [id number] [place] [address] [place] Glucose [Mass/Vol] 106 mg/dL High 74-99 [facility] Comment on above: Order Comment: Umesh baugh Type: BLOOD SPECIMENOrdering Facility: [facility] Address: [address] [place] [id number] Result Comment: The [place] [employer] (ADA) provides guidance for cutoff [...] Standards of Medical Care in Diabetes 2016, [place] [employer]. Diabetes Care. 2016.39(Suppl 1). Performed By: #### 2 4362-6, ####[facility] LABORATORYCLIA [id number] [place] [address] [place] Phosphate [Mass/Vol] 3.3 mg/dL Normal 2.7-4.8 [facility] Comment on above: Order Comment: Umesh baugh Type: BLOOD SPECIMENOrdering Facility: [facility] Address: [address] [place] [address] Performed By: #### 2 4362-6, ####EM[facility] LABORATORYCLIA [id number] [place] [address] [place] Potassium [Moles/Vol] 3.4 mmol/L Low 3.7-5.1 [facility] Comment on above: Order Comment: Speci men Type: BLOOD SPECIMENOrdering Facility: [facility] Address: [address] [place] [address] Performed By: #### 2 4362-6, ####EM[facility] LABORATORYCLIA [id number] [place] [id number] [place] Sodium [Moles/Vol] 142 mmol/L Normal 136-144 [facility] Comment on above: Order Comment: Speci men Type: BLOOD SPECIMENOrdering Facility: [facility] Address: [address] [place] [address] Performed By: #### 2 4362-6, ####[facility] LABORATORYCLIA [id number] [place] [id number] [place] Urea nitrogen [Mass/Vol] 9 mg/dL Normal 7-21 [facility] Comment on above: Order Comment: Speci men Type: BLOOD SPECIMENOrdering Facility: [facility] Address: [address] [place] [address] Performed By: #### 2 4362-6, ####[facility] LABORATORYCLIA [id number] [place] [id number] [place] THERAPY NTon 08-31-2024 THERAPY NT Normal [facility] CASE MANAGEMon 08-30-2024 CASE MANAGEM [facility] CBC panel Auto (Bld)on 08-30 Erythrocyte distribution width (RBC) [Ratio] 17.3 % High 11.5-15.0 [facility] Comment on above: Order Comment: Speci men Type: BLOOD SPECIMENOrdering Facility: [facility] Address: [address] [place] [address] Performed By: #### 5 8410-2 ####[facility] LABORATORYCLIA [id number] [place] [id number] [place] Hematocrit (Bld) [Volume fraction] 29.8 % Low 36.0-46.0 [facility] Comment on above: Order Comment: Speci men Type: BLOOD SPECIMENOrdering Facility: [facility] Address: [address] [place] [address] Performed By: #### 5 8410-2 ####[facility] LABORATORYCLIA [id number] [address] [place] Hemoglobin (Bld) [Mass/Vol] 10.3 g/dL Low 11.5-15.5 [facility] Comment on above: Order Comment: Speci men Type: BLOOD SPECIMENOrdering Facility: [facility] Address: [address] [place] [address] Performed By: #### 5 8410-2 ####[facility] LABORATORYCLIA [id number] [address] [place] MCH (RBC) [Entitic mass] 31.6 pg Normal 26.0-34.0 [facility] Comment on above: Order Comment: Speci men Type: BLOOD SPECIMENOrdering Facility: [facility] Address: [address] [place] [address] Performed By: #### 5 8410-2 ####[facility] LABORATORYCLIA [id number] [address] MCHC (RBC) [Mass/Vol] 34.6 g/dL Normal 30.5-36.0 [facility] Comment on above: Order Comment: Speci men Type: BLOOD SPECIMENOrdering Facility: [facility] Address: [address] [place] [address] Performed By: #### 5 8410-2 ####[facility] LABORATORYCLIA [id number] [address] [place] MCV (RBC) [Entitic vol] 91.4 fL Normal 80.0-100.0 [facility] Comment on above: Order Comment: Speci men Type: BLOOD SPECIMENOrdering Facility: [facility] Address: [address] [place] [address] Performed By: #### 5 8410-2 ####[facility] LABORATORYCLIA [id number] [address] [place] Nucleated RBC (Bld) [#/Vol] 10*3/uL Normal <0.01 [facility] Comment on above: Order Comment: Speci men Type: BLOOD SPECIMENOrdering Facility: [facility] Address: [address] [place] [address] Performed By: #### 5 8410-2 ####[facility] LABORATORYCLIA [id number] [place] [id number] [place] Platelet mean volume (Bld) [Entitic vol] 9.6 fL Normal 9.0-12.7 [facility] Comment on above: Order Comment: Speci men Type: BLOOD SPECIMENOrdering Facility: [facility] Address: [address] [place] [address] Performed By: #### 5 8410-2 ####[facility] LABORATORYCLIA [id number] [place] [id number] [place] Platelets (Bld) [#/Vol] 287 10*3/uL Normal 150-400 [facility] Comment on above: Order Comment: Speci men Type: BLOOD SPECIMENOrdering Facility: [facility] Address: [address] [place] [address] Performed By: #### 5 8410-2 ####[facility] LABORATORYCLIA [id number] [place] [id number] [place] RBC (Bld) [#/Vol] 3.26 10*6/uL Low 3.90-5.20 [facility] Comment on above: Order Comment: Speci men Type: BLOOD SPECIMENOrdering Facility: [facility] Address: [address] [place] [address] Performed By: #### 5 8410-2 ####[facility] LABORATORYCLIA [id number] [place] [id number] [place] WBC (Bld) [#/Vol] 10.93 10*3/uL Normal 3.70-11.00 [facility] Comment on above: Order Comment: Speci men Type: BLOOD SPECIMENOrdering Facility: [facility] Address: [address] [place] [address] Performed By: #### 5 8410-2 ####[facility] LABORATORYCLIA [id number] [place] [address] [place] Erythrocyte distribution width (RBC) [Ratio] 13.4 % Normal 11.5-15.0 [facility] Comment on above: Order Comment: Speci men Type: BLOOD SPECIMENOrdering Facility: [facility] Address: [address] [place] [address] Performed By: #### 5 8410-2 ####[facility] LABORATORYCLIA [id number] [address] Hematocrit (Bld) [Volume fraction] 21.5 % Low 36.0-46.0 [facility] Comment on above: Order Comment: Speci men Type: BLOOD SPECIMENOrdering Facility: [facility] Address: [address] [place] [address] Performed By: #### 5 8410-2 ####[facility] LABORATORYCLIA [id number] [address] Hemoglobin (Bld) [Mass/Vol] 7.1 g/dL Low 11.5-15.5 [facility] Comment on above: Order Comment: Speci men Type: BLOOD SPECIMENOrdering Facility: [facility] Address: [address] [place] [address] Performed By: #### 5 8410-2 ####[facility] LABORATORYCLIA [id number] [address] MCH (RBC) [Entitic mass] 32.7 pg Normal 26.0-34.0 [facility] Comment on above: Order Comment: Speci men Type: BLOOD SPECIMENOrdering Facility: [facility] Address: [address] [place] [address] Performed By: #### 5 8410-2 ####[facility] LABORATORYCLIA [id number] [address] [place] [facility] MCHC (RBC) [Mass/Vol] 33.0 g/dL Normal 30.5-36.0 [facility] Comment on above: Order Comment: Speci men Type: BLOOD SPECIMENOrdering Facility: [facility] Address: [address] [place] [address] Performed By: #### 5 8410-2 ####[facility]ORATORYCLIA [id number] [place] [id number] [place] MCV (RBC) [Entitic vol] 99.1 fL Normal 80.0-100.0 [facility] Comment on above: Order Comment: Speci men Type: BLOOD SPECIMENOrdering Facility: [facility] Address: [address] [place] [address] Performed By: #### 5 8410-2 ####[facility] LABORATORYCLIA [id number] [place] [id number] [place] Nucleated RBC (Bld) [#/Vol] 10*3/uL Normal <0.01 [facility] Comment on above: Order Comment: Speci men Type: BLOOD SPECIMENOrdering Facility: [facility] Address: [address] [place] [address] Performed By: #### 5 8410-2 ####[facility] LABORATORYCLIA [id number] [place] [address] [place] Platelet mean volume (Bld) [Entitic vol] 9.6 fL Normal 9.0-12.7 [facility] Comment on above: Order Comment: Speci men Type: BLOOD SPECIMENOrdering Facility: [facility] Address: [address] [place] [address] Performed By: #### 5 8410-2 ####[facility] LABORATORYCLIA [id number] [place] [id number] [place] Platelets (Bld) [#/Vol] 304 10*3/uL Normal 150-400 [facility] Comment on above: Order Comment: Speci men Type: BLOOD SPECIMENOrdering Facility: [facility] Address: [address] [place] [address] Performed By: #### 5 8410-2 ####[facility] LABORATORYCLIA [id number] [place] [id number] [place] RBC (Bld) [#/Vol] 2.17 10*6/uL Low 3.90-5.20 [facility] Comment on above: Order Comment: Speci men Type: BLOOD SPECIMENOrdering Facility: [facility] Address: [address] [place] [address] Performed By: #### 5 8410-2 ####[facility] LABORATORYCLIA [id number] [place] [id number] [place] WBC (Bld) [#/Vol] 9.88 10*3/uL Normal 3.70-11.00 [facility] Comment on above: Order Comment: Speci men Type: BLOOD SPECIMENOrdering Facility: [facility] Address: [address] [place] [address] Performed By: #### 5 8410-2 ####[facility] LABORATORYCLIA [id number] [place] [id number] [place] CONSULT PROGon 08-30-2024 CONSULT PROG Normal [facility] Magnesium SerPl-mCncon 08-30 Magnesium [Mass/Vol] 2.2 mg/dL Normal 1.7-2.3 [facility] Comment on above: Order Comment: Speci men Type: BLOOD SPECIMENOrdering Facility: [facility] Address: [address] [place] [address] Performed By: #### 1 9123-9, 85617-2 ####[facility] LABORATORYCLIA [id number] [place] [id number] [place] NUTRITIONon 08-30-2024 NUTRITION Normal [facility] Renal function 2000 panelon 08-30-2024 Albumin [Mass/Vol] 2.9 g/dL Low 3.9-4.9 [facility] Comment on above: Order Comment: Speci men Type: BLOOD SPECIMENOrdering Facility: [facility] Address: [address] [place] [address] Performed By: #### 1 9123-9, 82924-8 ####[facility] LABORATORYCLIA [id number] [place] [id number] [place] Anion gap [Moles/Vol] 8 mmol/L Normal 8-15 [facility] Comment on above: Order Comment: Speci men Type: BLOOD SPECIMENOrdering Facility: [facility] Address: [address] [place] [address] Performed By: #### 1 9123-9, 58188-1 ####[facility] LABORATORYCLIA [id number] [place] [address] [place] Calcium [Mass/Vol] 7.8 mg/dL Low 8.5-10.2 [facility] Comment on above: Order Comment: Speci men Type: BLOOD SPECIMENOrdering Facility: [facility] Address: [facility] [place] [address] Performed By: #### 1 9123-9, 59155-0 ####[facility] LABORATORYCLIA [id number] [place] [id number] [place] Chloride [Moles/Vol] 107 mmol/L Normal 98-107 [facility] Comment on above: Order Comment: Speci men Type: BLOOD SPECIMENOrdering Facility: [facility] Address: [facility] [place] [address] Performed By: #### 1 9123-9, 34553-7 ####[facility] LABORATORYCLIA [id number] [place] [id number] [place] CO2 [Moles/Vol] 25 mmol/L Normal 22-30 [facility] Comment on above: Order Comment: Speci men Type: BLOOD SPECIMENOrdering Facility: [facility] Address: [facility] [place] [place] [address] Performed By: #### 1 9123-9, 14599-2 ####[facility] LABORATORYCLIA [id number] [place] [id number] [place] Creatinine [Mass/Vol] 0.75 mg/dL Normal 0.58-0.96 [facility] Comment on above: Order Comment: Speci men Type: BLOOD SPECIMENOrdering Facility: [facility] Address: [address] [place] [address] Performed By: #### 1 9123-9, 79006-4 ####[facility] LABORATORYCLIA [id number] [place] [address] [place] Creatinine and Glomerular filtration rate.predicted panel (S/P/Bld) 88 mL/min/1.73m??? Normal >=60 [facility] Comment on above: Order Comment: Umesh baugh Type: BLOOD SPECIMENOrdering Facility: [facility] Address: [address] [place] [address] Result Comment: Sana mated Glomerular Filtration Rate [...] actual GFR. Performed By: #### 1 9123-9, 80679-1 ####[facility] LABORATORYCLIA [id number] [place] [address] [place] Glucose [Mass/Vol] 119 mg/dL High 74-99 [facility] Comment on above: Order Comment: Umesh baugh Type: BLOOD SPECIMENOrdering Facility: [facility] Address: [address] [place] [address] Result Comment: The [place] Diabetes Association (ADA) provides guidance for cutoff [...] Standards of Medical Care in Diabetes 2016, [place] [employer]. Diabetes Care. 2016.39(Suppl 1). Performed By: #### 1 9123-9, 03144-6 ####[facility] LABORATORYCLIA [id number] [place] [address] [place] Phosphate [Mass/Vol] 2.6 mg/dL Low 2.7-4.8 [facility] Comment on above: Order Comment: Umesh baugh Type: BLOOD SPECIMENOrdering Facility: [facility] Address: [address] [place] [address] Performed By: #### 1 9123-9, 55366-4 ####[facility] LABORATORYCLIA [id number] [place] [id number] [place] Potassium [Moles/Vol] 4.2 mmol/L Normal 3.7-5.1 [facility] Comment on above: Order Comment: Speci men Type: BLOOD SPECIMENOrdering Facility: [facility] Address: [address] [place] [address] Performed By: #### 1 9123-9, 36908-2 ####[facility] LABORATORYCLIA [id number] [place] [address] [place] Sodium [Moles/Vol] 140 mmol/L Normal 136-144 [facility] Comment on above: Order Comment: Speci men Type: BLOOD SPECIMENOrdering Facility: [facility] Address: [address] [place] [address] Performed By: #### 1 9123-9, 47276-1 ####[facility] LABORATORYCLIA [id number] [place] [address] [place] Urea nitrogen [Mass/Vol] 11 mg/dL Normal 7-21 [facility] Comment on above: Order Comment: Speci men Type: BLOOD SPECIMENOrdering Facility: [facility] Address: [address] [place] [address] Performed By: #### 1 9123-9, 04715-5 ####[facility] LABORATORYCLIA [id number] [place] [id number] [place] THERAPY NTon 08-30-2024 THERAPY Normal [facility] THERAPY NT Normal [facility] Basic metabolic 2000 panelon 08-29-2024 Anion gap [Moles/Vol] 10 mmol/L Normal 8-15 [facility] Comment on above: Order Comment: Speci men Type: BLOOD SPECIMENOrdering Facility: [facility] Address: [address] [place] [address] Performed By: #### 1 9123-9, 82974-7, 2777-1 ####[facility] LABORATORYCLIA [id number] [place] [address] [place] Calcium [Mass/Vol] 8.0 mg/dL Low 8.5-10.2 [facility] Comment on above: Order Comment: Speci men Type: BLOOD SPECIMENOrdering Facility: [facility] Address: [address] [place] [address] Performed By: #### 1 9123-9, 16426-7, 2776- ####[facility] LABORATORYCLIA [id number] [place] [address] [place] Chloride [Moles/Vol] 105 mmol/L Normal 98-107 [facility] Comment on above: Order Comment: Speci men Type: BLOOD SPECIMENOrdering Facility: [facility] Address: [address] [place] [address] Performed By: #### 1 9123-9, 65987-1, 2776- ####[facility] LABORATORYCLIA [id number] [place] [address] [place] CO2 [Moles/Vol] 23 mmol/L Normal 22-30 [facility] Comment on above: Order Comment: Speci men Type: BLOOD SPECIMENOrdering Facility: [facility] Address: [address] [place] [address] Performed By: #### 1 9123-9, 14110-8, 2776- ####[facility] LABORATORYCLIA [id number] [place] [address] [place] Creatinine [Mass/Vol] 0.56 mg/dL Low 0.58-0.96 [facility] Comment on above: Order Comment: Speci men Type: BLOOD SPECIMENOrdering Facility: [facility] Address: [address] [place] [address] Performed By: #### 1 9123-9, 36867-1, 2776- ####[facility] LABORATORYCLIA [id number] [place] [address] [place] Creatinine and Glomerular filtration rate.predicted panel (S/P/Bld) 101 mL/min/1.73m??? Normal >=60 [facility] Comment on above: Order Comment: Speci men Type: BLOOD SPECIMENOrdering Facility: [facility] Address: [address] [place] [address] Result Comment: Sana mated Glomerular Filtration Rate [...] actual GFR. Performed By: #### 1 9123-9, 23882-9, 2776- ####[facility] LABORATORYCLIA [id number] [place] [id number] [place] Glucose [Mass/Vol] 127 mg/dL High 74-99 [facility] Comment on above: Order Comment: Umesh baugh Type: BLOOD SPECIMENOrdering Facility: [facility] Address: [address] [place] [address] Result Comment: The [place] Diabetes [employer] (ADA) provides guidance for cutoff [...] Standards of Medical Care in Diabetes 2016, [place] [employer]. Diabetes Care. 2016.39(Suppl 1). Performed By: #### 1 9123-9, 97986-9, 2776-03 ####[facility] LABORATORYCLIA [id number] [place] [id number] [place] Potassium [Moles/Vol] 3.7 mmol/L Normal 3.7-5.1 [facility] Comment on above: Order Comment: Umesh [facility] Type: BLOOD SPECIMENOrdering Facility: [facility] Address: [address] [place] [address] Performed By: #### 1 9123-9, 16635-3, 2777- ####[facility] LABORATORYCLIA [id number] [place] [id number] [place] Sodium [Moles/Vol] 138 mmol/L Normal 136-144 [facility] Comment on above: Order Comment: Speci men Type: BLOOD SPECIMENOrdering Facility: [facility] Address: [address] [place] [address] Performed By: #### 1 9123-9, 01227-9, 277- ####[facility] LABORATORYCLIA [id number] [place] [address] [place] Urea nitrogen [Mass/Vol] 13 mg/dL Normal 7-21 [facility] Comment on above: Order Comment: Speci men Type: BLOOD SPECIMENOrdering Facility: [facility] Address: [address] [place] [address] Performed By: #### 1 9123-9, 55552-4, 2776-03 ####[facility] LABORATORYCLIA [id number] [place] [address] [place] CASE MGT INIT ASSESon 2024 CASE MGT INIT ASSES Normal [facility] CBC W Auto Differential pane l (Bld)on 08-29-2024 Basophils (Bld) [#/Vol] 10*3/uL Normal <0.11 [facility] Comment on above: Order Comment: Speci men Type: BLOOD SPECIMENOrdering Facility: [facility] Address: [address] [place] [address] Performed By: #### 5 7021-8 ####[facility] LABORATORYCLIA [id number] [place] [id number] [place] Basophils/100 WBC (Bld) 0.1 % Normal [facility] Comment on above: Order Comment: Speci men Type: BLOOD SPECIMENOrdering Facility: [facility] Address: [address] [place] [address] Performed By: #### 5 7021-8 ####[facility] LABORATORYCLIA [id number] [address] Differential cell count method Nom (Bld) Auto Normal [facility] Comment on above: Order Comment: Speci men Type: BLOOD SPECIMENOrdering Facility: [facility] Address: [address] [place] [address] Performed By: #### 5 7021-8 ####[facility] LABORATORYCLIA [id number] [place] [address] [place] Eosinophils (Bld) [#/Vol] 10*3/uL Normal <0.46 [facility] Comment on above: Order Comment: Speci men Type: BLOOD SPECIMENOrdering Facility: [facility] Address: [address] [place] [address] Performed By: #### 5 7021-8 ####[facility] LABORATORYCLIA [id number] [address] [place] [facility] Eosinophils/100 WBC (Bld) 0.0 % Normal [facility] Comment on above: Order Comment: Speci men Type: BLOOD SPECIMENOrdering Facility: [facility] Address: [address] [place] [address] Performed By: #### 5 7021-8 ####[facility] LABORATORYCLIA [id number] [address] Erythrocyte distribution width (RBC) [Ratio] 13.2 % Normal 11.5-15.0 [facility] Comment on above: Order Comment: Speci men Type: BLOOD SPECIMENOrdering Facility: [facility] Address: [address] [place] [address] Performed By: #### 5 7021-8 ####[facility] LABORATORYCLIA [id number] [address] [place] Hematocrit (Bld) [Volume fraction] 24.9 % Low 36.0-46.0 [facility] Comment on above: Order Comment: Speci men Type: BLOOD SPECIMENOrdering Facility: [facility] Address: [address] [place] [address] Performed By: #### 5 7021-8 ####[facility] LABORATORYCLIA [id number] [place] [address] [place] Hemoglobin (Bld) [Mass/Vol] 8.2 g/dL Low 11.5-15.5 [facility] Comment on above: Order Comment: Speci men Type: BLOOD SPECIMENOrdering Facility: [facility] Address: [address] [place] [address] Performed By: #### 5 7021-8 ####[facility] LABORATORYCLIA [id number] [place] [id number] [place] Immature granulocytes (Bld) [#/Vol] 0.04 10*3/uL Normal <0.10 [facility] Comment on above: Order Comment: Speci men Type: BLOOD SPECIMENOrdering Facility: [facility] Address: [address] [place] [address] Performed By: #### 5 7021-8 ####[facility] LABORATORYCLIA [id number] [place] [address] [place] Immature granulocytes/100 WBC (Bld) 0.4 % Normal [facility] Comment on above: Order Comment: Speci men Type: BLOOD SPECIMENOrdering Facility: [facility] Address: [address] [place] [address] Performed By: #### 5 7021-8 ####[facility] LABORATORYCLIA [id number] [place] [address] [place] Lymphocytes (Bld) [#/Vol] 1.04 10*3/uL Normal 1.00-4.00 [facility] Comment on above: Order Comment: Speci men Type: BLOOD SPECIMENOrdering Facility: [facility] Address: [address] [place] [address] Performed By: #### 5 7021-8 ####[facility] LABORATORYCLIA [id number] [place] [address] [place] Lymphocytes/100 WBC (Bld) 10.3 % Normal [facility] Comment on above: Order Comment: Speci men Type: BLOOD SPECIMENOrdering Facility: [facility] Address: [address] [place] [address] Performed By: #### 5 7021-8 ####[facility] LABORATORYCLIA [id number] [place] [address] [place] MCH (RBC) [Entitic mass] 32.9 pg Normal 26.0-34.0 [facility] Comment on above: Order Comment: Speci men Type: BLOOD SPECIMENOrdering Facility: [facility] Address: [address] [place] [address] Performed By: #### 5 7021-8 ####[facility] LABORATORYCLIA [id number] [place] [id number] [place] MCHC (RBC) [Mass/Vol] 32.9 g/dL Normal 30.5-36.0 [facility] Comment on above: Order Comment: Speci men Type: BLOOD SPECIMENOrdering Facility: [facility] Address: [address] [place] [address] Performed By: #### 5 7021-8 ####[facility] LABORATORYCLIA [id number] [place] [address] [place] MCV (RBC) [Entitic vol] 100.0 fL Normal 80.0-100.0 [facility] Comment on above: Order Comment: Speci men Type: BLOOD SPECIMENOrdering Facility: [facility] Address: [address] [place] [address] Performed By: #### 5 7021-8 ####[facility] LABORATORYCLIA [id number] [address] [place] Monocytes (Bld) [#/Vol] 1.10 10*3/uL High <0.87 [facility] Comment on above: Order Comment: Speci men Type: BLOOD SPECIMENOrdering Facility: [facility] Address: [address] [place] [address] Performed By: #### 5 7021-8 ####[facility] LABORATORYCLIA [id number] [address] Monocytes/100 WBC (Bld) 10.9 % Normal [facility] Comment on above: Order Comment: Speci men Type: BLOOD SPECIMENOrdering Facility: [facility] Address: [address] [place] [address] Performed By: #### 5 7021-8 ####[facility] LABORATORYCLIA [id number] [place] [id number] [place] Neutrophils (Bld) [#/Vol] 7.90 10*3/uL High 1.45-7.50 [facility] Comment on above: Order Comment: Speci men Type: BLOOD SPECIMENOrdering Facility: [facility] Address: [address] [place] [address] Performed By: #### 5 7021-8 ####[facility] LABORATORYCLIA [id number] [place] [id number] [place] Neutrophils/100 WBC (Bld) 78.3 % Normal [facility] Comment on above: Order Comment: Speci men Type: BLOOD SPECIMENOrdering Facility: [facility] Address: [address] [place] [address] Performed By: #### 5 7021-8 ####[facility] LABORATORYCLIA [id number] [place] [id number] [place] Nucleated RBC (Bld) [#/Vol] 10*3/uL Normal <0.01 [facility] Comment on above: Order Comment: Speci men Type: BLOOD SPECIMENOrdering Facility: [facility] Address: [address] [place] [address] Performed By: #### 5 7021-8 ####[facility] LABORATORYCLIA [id number] [place] [id number] [place] Nucleated RBC/100 WBC (Bld) [Ratio] 0.0 /100 WBC Normal [facility] Comment on above: Order Comment: Speci men Type: BLOOD SPECIMENOrdering Facility: [facility] Address: [address] [place] [address] Performed By: #### 5 7021-8 ####[facility] LABORATORYCLIA [id number] [place] [id number] [place] Platelet mean volume (Bld) [Entitic vol] 9.6 fL Normal 9.0-12.7 [facility] Comment on above: Order Comment: Speci men Type: BLOOD SPECIMENOrdering Facility: [facility] Address: [address] [place] [address] Performed By: #### 5 7021-8 ####[facility] LABORATORYCLIA [id number] [place] [id number] [place] Platelets (Bld) [#/Vol] 341 10*3/uL Normal 150-400 [facility] Comment on above: Order Comment: Speci men Type: BLOOD SPECIMENOrdering Facility: [facility] Address: [address] [place] [address] Performed By: #### 5 7021-8 ####[facility] LABORATORYCLIA [id number] [place] [id number] [place] RBC (Bld) [#/Vol] 2.49 10*6/uL Low 3.90-5.20 [facility] Comment on above: Order Comment: Speci men Type: BLOOD SPECIMENOrdering Facility: [facility] Address: [address] [place] [address] Performed By: #### 5 7021-8 ####[facility] LABORATORYCLIA [id number] [place] [id number] [place] WBC (Bld) [#/Vol] 10.09 10*3/uL Normal 3.70-11.00 [facility] Comment on above: Order Comment: Speci men Type: BLOOD SPECIMENOrdering Facility: [facility] Address: [address] [place] [address] Performed By: #### 5 7021-8 ####[facility] LABORATORYCLIA [id number] [place] [id number] [place] CONSULT PROGon 08-29-2024 CONSULT PROG Normal [facility] Magnesium SerPl-mCncon 08-29 Magnesium [Mass/Vol] 1.7 mg/dL Normal 1.7-2.3 [facility] Comment on above: Order Comment: Speci men Type: BLOOD SPECIMENOrdering Facility: [facility] Address: [address] [place] [address] Performed By: #### 1 9123-9, 70418-4, 2777-1 ####[facility] LABORATORYCLIA [id number] [place] [id number] [place] NURSING PROGon 08-29-2024 NURSING PROG Normal [facility] NURSING PROG Normal [facility] NUTRITIONon 08-29-2024 NUTRITION Normal [facility] NUTRITION Normal [facility] Phosphate SerPl-mCncon 08-29 Phosphate [Mass/Vol] 3.0 mg/dL Normal 2.7-4.8 [facility] Comment on above: Order Comment: Speci men Type: BLOOD SPECIMENOrdering Facility: [facility] Address: [address] [place] [address] Performed By: #### 1 9123-9, 70382-1, 2777-1 ####[facility] LABORATORYCLIA [id number] [place] [id number] [facility] [place] THERAPY NTon 08-29-2024 THERAPY NT Normal [facility] THERAPY NT Normal [facility] ANES POSTPROC EVALon 025 ANES POSTPROC EVAL Normal [facility] ANES PRE-OPon 08-28-2024 ANES PRE-OP [facility] BRIEF OP NOTon 08-28-2024 BRIEF OP NOT Normal [facility] Basic metabolic 2000 panelon 08-28-2024 Anion gap [Moles/Vol] 13 mmol/L Normal 8-15 [facility] Comment on above: Order Comment: Speci men Type: BLOOD SPECIMENOrdering Facility: [facility] Address: [address] [place] [address] Performed By: #### 2 4321-2 ####[facility] LABORATORYCLIA [id number] [place] [id number] [place] Calcium [Mass/Vol] 7.7 mg/dL Low 8.5-10.2 [facility] Comment on above: Order Comment: Speci men Type: BLOOD SPECIMENOrdering Facility: [facility] Address: [address] [place] [address] Performed By: #### 2 4321-2 ####[facility] LABORATORYCLIA [id number] [place] [id number] [place] Chloride [Moles/Vol] 104 mmol/L Normal 98-107 [facility] Comment on above: Order Comment: Speci men Type: BLOOD SPECIMENOrdering Facility: [facility] Address: [address] [place] [address] Performed By: #### 2 4321-2 ####[facility] LABORATORYCLIA [id number] [place] [id number] [place] CO2 [Moles/Vol] 20 mmol/L Low 22-30 [facility] Comment on above: Order Comment: Speci men Type: BLOOD SPECIMENOrdering Facility: [facility] Address: [address] [place] [address] Performed By: #### 2 4321-2 ####[facility] LABORATORYCLIA [id number] [address] [facility] Creatinine [Mass/Vol] 0.51 mg/dL Low 0.58-0.96 [facility] Comment on above: Order Comment: Speci men Type: BLOOD SPECIMENOrdering Facility: [facility] Address: [address] [place] [address] Performed By: #### 2 4321-2 ####[facility] LABORATORYCLIA [id number] [address] Creatinine and Glomerular filtration rate.predicted panel (S/P/Bld) 104 mL/min/1.73m??? Normal >=60 [facility] Comment on above: Order Comment: Speci men Type: BLOOD SPECIMENOrdering Facility: [facility] Address: [address] [place] [address] Result Comment: Sana mated Glomerular Filtration Rate [...] actual GFR. Performed By: #### 2 4321-2 ####[facility] LABORATORYCLIA [id number] [place] [id number] [place] Glucose [Mass/Vol] 196 mg/dL High 74-99 [facility] Comment on above: Order Comment: Speci men Type: BLOOD SPECIMENOrdering Facility: [facility] Address: [address] [place] [id number] Result Comment: The [place] [employer] (ADA) provides guidance for cutoff [...] Standards of Medical Care in Diabetes 2016, [place] [employer]. Diabetes Care. 2016.39(Suppl 1). Performed By: #### 2 4321-2 ####[facility] LABORATORYCLIA [id number] [place] [address] [place] Potassium [Moles/Vol] 4.2 mmol/L Normal 3.7-5.1 [facility] Comment on above: Order Comment: Umesh lupis Type: BLOOD SPECIMENOrdering Facility: [facility] Address: [address] [place] [address] Performed By: #### 2 4321-2 ####[facility]ORATORYCLIA [id number] [place] [id number] [place] Sodium [Moles/Vol] 137 mmol/L Normal 136-144 [facility] Comment on above: Order Comment: Speci men Type: BLOOD SPECIMENOrdering Facility: [facility] Address: [address] [id number] Performed By: #### 2 4321-2 ####[facility] LABORATORYCLIA [id number] [place] [address] [place] Urea nitrogen [Mass/Vol] 12 mg/dL Normal 7-21 [facility] Comment on above: Order Comment: Speci men Type: BLOOD SPECIMENOrdering Facility: [facility] Address: [address] [place] [address] Performed By: #### 2 4321-2 ####[facility] LABORATORYCLIA [id number] [place] [id number] [facility] CBC panel Auto (Bld)on 08-28 Erythrocyte distribution width (RBC) [Ratio] 13.2 % Normal 11.5-15.0 [facility] Comment on above: Order Comment: Speci men Type: BLOOD SPECIMENOrdering Facility: [facility] Address: [address] [place] [address] Performed By: #### 5 8410-2 ####[facility] LABORATORYCLIA [id number] [address] Hematocrit (Bld) [Volume fraction] 26.4 % Low 36.0-46.0 [facility] Comment on above: Order Comment: Speci men Type: BLOOD SPECIMENOrdering Facility: [facility] Address: [address] [place] [address] Performed By: #### 5 8410-2 ####[facility] LABORATORYCLIA [id number] [address] [place] Hemoglobin (Bld) [Mass/Vol] 9.0 g/dL Low 11.5-15.5 [facility] Comment on above: Order Comment: Speci men Type: BLOOD SPECIMENOrdering Facility: [facility] Address: [address] [place] [address] Performed By: #### 5 8410-2 ####[facility] LABORATORYCLIA [id number] [place] [id number] [facility] [place] MCH (RBC) [Entitic mass] 33.3 pg Normal 26.0-34.0 [facility] Comment on above: Order Comment: Speci men Type: BLOOD SPECIMENOrdering Facility: [facility] Address: [address] [place] [address] Performed By: #### 5 8410-2 ####[facility] LABORATORYCLIA [id number] [address] [place] MCHC (RBC) [Mass/Vol] 34.1 g/dL Normal 30.5-36.0 [facility] Comment on above: Order Comment: Speci men Type: BLOOD SPECIMENOrdering Facility: [facility] Address: [address] [place] [address] Performed By: #### 5 8410-2 ####[facility] LABORATORYCLIA [id number] [place] [address] [place] MCV (RBC) [Entitic vol] 97.8 fL Normal 80.0-100.0 [facility] Comment on above: Order Comment: Speci men Type: BLOOD SPECIMENOrdering Facility: [facility] Address: [address] [place] [address] Performed By: #### 5 8410-2 ####[facility] LABORATORYCLIA [id number] [place] [address] [place] Nucleated RBC (Bld) [#/Vol] 10*3/uL Normal <0.01 [facility] Comment on above: Order Comment: Speci men Type: BLOOD SPECIMENOrdering Facility: [facility] Address: [address] [place] [address] Performed By: #### 5 8410-2 ####[facility] LABORATORYCLIA [id number] [place] [address] [place] Platelet mean volume (Bld) [Entitic vol] 9.5 fL Normal 9.0-12.7 [facility] Comment on above: Order Comment: Speci men Type: BLOOD SPECIMENOrdering Facility: [facility] Address: [address] [place] [address] Performed By: #### 5 8410-2 ####[facility] LABORATORYCLIA [id number] [place] [address] [place] Platelets (Bld) [#/Vol] 358 10*3/uL Normal 150-400 [facility] Comment on above: Order Comment: Speci men Type: BLOOD SPECIMENOrdering Facility: [facility] Address: [address] [place] [address] Performed By: #### 5 8410-2 ####EM[facility] LABORATORYCLIA [id number] [place] [address] [place] RBC (Bld) [#/Vol] 2.70 10*6/uL Low 3.90-5.20 [facility] Comment on above: Order Comment: Speci men Type: BLOOD SPECIMENOrdering Facility: [facility] Address: [address] [place] [address] Performed By: #### 5 8410-2 ####[facility] LABORATORYCLIA [id number] [place] [address] [place] WBC (Bld) [#/Vol] 11.10 10*3/uL High 3.70-11.00 [facility] Comment on above: Order Comment: Speci men Type: BLOOD SPECIMENOrdering Facility: [facility] Address: [address] [place] [address] Performed By: #### 5 8410-2 ####[facility] LABORATORYCLIA [id number] [place] [address] [place] HER2 BY IHC NON BREASTon AP BIOMARKER DISCLAIMER [facility] Comment on above: Order Comment: Speci men Type: TISSUE SPECIMENOrdering Facility: [facility] Address: [address] [place] [address] Result Comment: Vero voss Developed Test (LDT) Disclaimer:Performance characteristics of immunohistochemical, immunofluorescent, and chromogenic in-situ hybridization tests have been determined by the performing laboratory within the [facility] Department of Pathology and Laboratory Medicine ([facility], [facility], [facility], [facility], [facility], [facility], or [facility]) in a manner consistent with CLIA requirements. One or more of these tests may not have been cleared or approved by the FDA. The [facility] Department of Pathology and Laboratory Medicine is regulated under CLIA as qualified to perform high-complexity testing. These tests are used for clinical purposes. These should not be regarded as investigational or for research. Positive and negative controls stain appropriately. Performed By: #### L [id number] ####[facility] LABCLIA [id number] [place] [address] [place] AP BLOCK ID [id number] [facility] Comment on above: Order Comment: Speci men Type: TISSUE SPECIMENOrdering Facility: [facility] Address: [address] [place] [address] Performed By: #### L [id number] ####[facility] LABCLIA [id number] [address] [place] BIOMARKER INTERPRETATION COMMENT AND REFERENCE RANGE [facility] Comment on above: Order Comment: Speci men Type: TISSUE SPECIMENOrdering Facility: [facility] Address: [address] [place] [address] Result Comment: Refe rence Ranges HER2 immunohistochemistry:Positive:Intense (3+) circumferential, basolateral, or lateral staining in greater than or equal to 50% of tumor cells.Equivocal:Moderate (2+) circumferential, basolateral, or lateral staining in greater than or equal to 50% of tumor cells;Intense (3+) circumferential, basolateral, or lateral staining in greater than 10%, but less than 50% of tumor cells.Negative:No staining (0);Faint (1+) segmental or granular staining in any number of tumor cells;Moderate (2+) circumferential, basolateral, or lateral staining in less than 50% of tumor cells;Intense (3+) circumferential, basolateral, or lateral staining in less than or equal to 10% of tumor cells.Interpretation comments:The HER2 immunohistochemistry assay was developed, validated, scored, and reported in accordance with the criteria used in the HERACLES trial. In accordance with the HERACLES trial results, equivocal cases will be reflexed to HER2 fluorescence in situ hybridization.Reference:Yanet Marie et al. Assessment of a HER2 scoring system for colorectal cancer: results from a validation study. Mod Pathol. 2015 Jan;28(11):1481-91. PMID: [id number]. Performed By: #### L [id number] ####[facility] LABCLIA [id number] [place] [address] [place] BIOMARKER METHOD [facility] Comment on above: Order Comment: Speci men Type: TISSUE SPECIMENOrdering Facility: [facility] Address: [address] [place] [address] Result Comment: HER2 (ERBB2) by IHC:FDA cleared: [employer], [facility] Antibody:5L7Zihxzwde and Detection System: [employer] Pathway anti-HER2 rabbit monoclonal antibody (clone 4B5), were detected with the Interview Master iView Detection System (indirect biotin streptavidin detection); [place], [place]. Performed By: #### L [id number] ####[facility] LABCLIA [id number] [address] [place] [address] [place] [facility] CASE NUMBER HER2 [id number] [facility] Comment on above: Order Comment: Speci men Type: TISSUE SPECIMENOrdering Facility: [facility] Address: [address] [place] [address] Performed By: #### L [id number] ####[facility] LABCLIA [id number] [address] [address] [place] FINAL PERFORMING LAB Normal [facility] Comment on above: Order Comment: Speci men Type: TISSUE SPECIMENOrdering Facility: [facility] Address: [address] [place] [address] Result Comment: Diag nostic interpretation performed at: [facility], [address] [place] [address] CLIA# [id number] Director: Marky Christian MDElectronically signed out by: Rd Woodall MD Performed By: #### L [id number] ####[facility] LABCLIA [id number] [address] [place] [address] [place] FIXATIVE Formalin, 10% Neutra l Buffered [facility] Comment on above: Order Comment: Speci men Type: TISSUE SPECIMENOrdering Facility: [facility] Address: [address] [place] [address] Performed By: #### L [id number] ####[facility] LABCLIA [id number] [address] [address] [place] HER2 SCORE (COLON) 1+ Normal [facility] Comment on above: Order Comment: Speci men Type: TISSUE SPECIMENOrdering Facility: [facility] Address: [address] [place] [address] Performed By: #### L [id number] ####[facility] LABCLIA [id number] [address] [address] [place] HER2 STATUS FOR COLON Negative Normal [facility] Comment on above: Order Comment: Speci men Type: TISSUE SPECIMENOrdering Facility: [facility] Address: [address] [place] [address] Performed By: #### L [id number] ####[facility] LABCLIA [id number] [place] [id number] [place] TUMOR TYPE (NON BREAST) Metastatic Colorectal Adenocarcinoma [facility] Comment on above: Order Comment: Speci men Type: TISSUE SPECIMENOrdering Facility: [facility] Address: [address] [place] [address] Performed By: #### L [id number] ####[facility] LABCLIA [id number] [address] [address] [place] NURSING PROGon 08-28-2024 NURSING PROG Normal [facility] OPERATIVE NOon 08-28-2024 OPERATIVE NO [facility] Pathology biopsy report Cordell (Tiss)on 08-28-2024 AP DISCLAIMER [facility] Comment on above: Order Comment: Speci men Type: TISSUE SPECIMENOrdering Facility: [facility] Address: [address] [place] [address] Result Comment: Vero voss Developed Test (LDT) Disclaimer:Performance characteristics of immunohistochemical, immunofluorescent, and chromogenic in-situ hybridization tests have been determined by the performing laboratory within [facility]'s Mark Dinero Pathology and Laboratory Medicine Department ([facility], [facility], [facility], [facility], [facility], [facility], or [facility]) in a manner consistent with CLIA requirements. One or more of these tests may not have been cleared or approved by the FDA. [facility] is regulated under CLIA as qualified to perform high-complexity testing. These tests are used for clinical purposes. These should not be regarded as investigational or for research. Positive and negative controls stain appropriately. Performed By: #### 6 6121-5 ####[facility] LABORATORYCLIA [id number] [place] [id number] [facility] CASE REPORT Normal [facility] Comment on above: Order Comment: Speci lupis Type: TISSUE SPECIMENOrdering Facility: [facility] Address: [address] [place] [address] Result Comment: Surg [facility] Pathology Report Case: [id number] Provider: Tessa Spring MD Collected: 08/28/2024 10:57 AMOrdering Location: [facility] Received: 08/28/2024 03:21 PM Operating RoomPathologist: Jimbo Mesa MDSpecimens: A) - Ovary, Right, Resection B) - Soft Tissue, Mass, Resection, Right Rectoperitoneal mass C) - Margin, Excision, Ileac Margin D) - Mesentery, Additional Mesentary nodule E) - Colon and Small Bowel, Right Hemicolectomy Performed By: #### 6 6121-5 ####[facility]ITALCLIA [id number] [address] CLINICAL HISTORY Normal [facility] Comment on above: Order Comment: Umesh baugh Type: TISSUE SPECIMENOrdering Facility: [facility] Address: [address] [place] [address] Result Comment: Pre- op diagnosis:Malignant neoplasm of ascending colon (HCC) [C18.2] Performed By: #### 6 6121-5 ####[facility] LABORATORYCLIA [id number] [address] DIAGNOSIS COMMENT Normal [facility] Comment on above: Order Comment: Umesh baugh Type: TISSUE SPECIMENOrdering Facility: [facility] Address: [address] [place] [address] Result Comment: A. I mmunohistochemical stains have [...] Gynecologic Pathology. Performed By: #### 6 6121-5 ####[facility] LABORATORYCLIA [id number] [address] FINAL DIAGNOSIS Normal [facility] Comment on above: Order Comment: Speci men Type: TISSUE SPECIMENOrdering Facility: [facility] Address: [address] [place] [address] Result Comment: Armando glass designated right ovary, excision:- Leiomyoma (see comment).- Metastatic adenocarcinoma, morphologically consistent with colonic primary, involving peritoneal surface.- No ovarian parenchyma identified in public utilities sales representative sections.B. Right retroperitoneal mass, resection:- Recurrent/metastatic [...] 1105 EDT Performed By: #### 6 6121-5 ####[facility] LABORATORYCLIA [id number] [address] FINAL PERFORMING LAB Normal [facility] Comment on above: Order Comment: Speci men Type: TISSUE SPECIMENOrdering Facility: [facility] Address: [address] [place] [address] Result Comment: Diag nostic interpretation performed at: [facility], [address] [place] [address] CLIA# [id number] Director: Sana Freeman MD Performed By: #### 6 6121-5 ####[facility] LABORATORYCLIA [id number] [address] [place] [facility] GROSS DESCRIPTION Normal [facility] Comment on above: Order Comment: Speci men Type: TISSUE SPECIMENOrdering Facility: [facility] Address: [address] [place] [address] Result Comment: A. O vary, Right, ResectionReceived in formalin designated right ovary resection is a dominguez-white bosselated nodule that measures 4.5 x 2.9 x 2.1 cm and weighs 18 g. Sectioning through the nodule reveals dominguez-white whirled and homogeneous cut surfaces. Ovarian parenchyma is not identified. Environmental Adviser sections are submitted in three cassettes.WE August 29, 2024 12:17 PMGross examination performed at [facility], [id number] [place], [place] [address]B. Soft Tissue, Mass, ResectionReceived in formalin designated [...] ovary reveals dominguez-white and granular cut surfaces. Environmental Adviser sections are submitted as follows: B1-B5 mass with outer surface inked black, B6 possible fallopian tube, B7 possible ovary, B8 public utilities sales representative sections of lymph node.WE August 29, 2024 11:01 AMGross examination performed at [facility], [address] [place] [id number]. Margin, ExcisionReceived in formalin designated iliac margin is an unoriented dominguez-kennedy fragment of fibrous tissue that measures 1.3 x 1 x 0.6 cm. The specimen is entirely submitted in one cassette.WE August 29, 2024 12:17 PMGross examination performed at [facility], [address] [place], [place] [address]V. MesenteryReceived in formalin designated additional mesentery nodule is a dominguez-yellow rubbery and lobulated portion of mesentery that measures 3.5 x 1.3 x 1.2 cm. The mesenteric margin is inked black. Sectioning through the mesentery reveals a dominguez-white granular nodule that measures 0.6 x 0.6 x 0.4 cm. The nodule is located 0.2 cm from the mesenteric resection margin. Environmental Adviser sections are submitted in one cassette.WE August 29, 2024 12:21 PMGross examination performed at [facility], [address] [place], [place] [address]G. Colon and Small Bowel, Right HemicolectomyReceived in [...] with a wall thickness of 0.4 cm. Environmental Adviser sections are submitted as follows: E1 proximal [...] 29, 2024 11:35 AMGross examination performed at [facility], [address] [place] [address] Performed By: #### 6 6121-5 ####[facility] LABORATORYCLIA [id number] [place] [address] [place] TARGETED ONCOLOGY PANEL NEXT GENERATION SEQUENCING OTHERon 08-28-2024 TARGETED ONCOLOGY PANEL NEXT GENERATION SEQUENCING OTHER Normal [facility] Comment on above: Order Comment: Speci men Type: TISSUE SPECIMENOrdering Facility: [facility] Address: [address] [place] [address] Result Comment: [facility] Targeted Oncology PanelLaboratory Accession Number: [id number] #: [id number] #: [id number] Type: FFPET% Tumor: 50CASE SUMMARY:No clinically significant [...] uncertain significance detected:None detectedRegions with coverage <100x:MTOR:NM_[id number]:Ex40 chr1:[id number] Range: 87-92METHODOLOGY:Extracted nucleic acid from the specimen, both DNA and RNA, weresubjected to separate targeted amplification reactions, using [employer] primers designed by [employer] ([place] [employer], [place], [place]). Hotspots and selected fusions in generegions listed below were sequenced using Illumina ([place], [place])2x150 paired-end cycle chemistry. A customized bioinformaticsanalytical platform was used for read alignment (Genome FzptyWDVp93/hg19), variant identification and annotation. Single nucleotidevariants (SNVs), [...] NM_000044 6, 8BRAF NM_004333 11, 15CDK4 NM_000075 6IOJXV6 NM_001904 3, 7-8DDR2 NM_006182 5EGFR NM_005228 3, 7, 12, 15, 18-29TIGW2 NM_004448 8, 17-48EHET7 NM_001982 2-3, 6, 8-9ERBB4 NM_005235 18ESR1 NM_000125 8FGFR1 NM_023110 12-14, 16-15QYWY4 NM_000141 7-9, 12, 59DWHO5 NM_000142 7, 9, 14, 11EHW87 NM_002067 4, 5GNAQ NM_002072 4, 5GNAS NM_080425 8H3-3A NM_002107 2H3-3B NM_005324 2HRAS NM_005343 2,3IDH1 NM_005896 4IDH2 NM_002168 4JAK1 NM_002227 14-16JAK2 NM_004972 14JAK3 NM_000215 11-12, 15KIT NM_000222 8-11, 13, 17KRAS NM_033360 2-3XTB9P9 NM_002755 2-3, 0KME4Y0 NM_030662 2MET NM_000245 14, 16, 19MTOR NM_004958 30, 39-40, 43, 47, 53NRAS NM_002524 2-4PDGFRA NM_006206 12, 14, 21GFB4XI NM_006218 2, 5-6, 8, 10, 14, 19, 21RAF1 NM_002880 7, 12RET NM_020975 11, 13, 15-16ROS1 NM_002944 36, 38SMO NM_005631 4, 6, 8-9TERT NM_198253 DdznuttxOX84 NM_000546 5, 7, 8*Only hotspots within designated exons are covered, full exons are notsequenced.Genes reported for copy number gains: ALK, AR BRAF, CCND1, CDK4, CDK6,EGFR, ERBB2, FGFR1, FGFR2, FGFR3, FGFR4, KIT, KRAS, MET, MYC, MYCN,PDGFRA, AZD9SJNsouisk detected in RNA:Gene Detected FusionsABL1 EML1::TMI4WRF0 MAGI3::JKY7GUT A2M::ALK, ACTG2::ALK, ALK::PTPN3, ATIC::ALK, W5fcg29::ALK, CARS::ALK, CLIP4::ALK, CLTC::ALK, DCTN1::ALK, EML4::ALK, WMS8ZNB8::ALK, HIP1::ALK, KIF5B::ALK, KLC1::ALK, MEMO1::ALK, NCOA1::ALK, BZRJH6Y::ALK, RANBBP2::ALK, XQE73T8_JBH65E::ALK, SMEK2::ALK, STRN::ALK, TFG::ALK, TPM1::ALK, TPM3::ALK, TPM4::ALK, TPR::ALK, TRAF1::ALK, VCL::ALKAXL ROMERO::MBIPBRAF AGTRAP:BRAF, AKAP9::BRAF, CDC27::BRAF, IQB571Z::BRAF, FCHSD1::BRAF, VYLT2832::BRAF, PAPSS1::BRAF, FGO91Y2::BRAF, SND1::BRAF, HLY1MO4::BRAF, TRIM24::BRAFEGFR EGFR vIII transcriptERBB2 WIPF2::WBEE3ECF AQX62W1:ERG, TMPRSS2:ERGFGFR1 BAG4::FGFR1, ERLIN2::FGFR1, FGFR1::GJPU2FYGD9 FGFR2::AFF3, FGFR2::BICC1, FGFR2::CASP7, FGFR2::CIT, FGFR2::TYNA8420_JYZI1, FGFR2::MGEA5, FGFR2::OFD1, FGFR2::TACC1, FHP23D1::FDWB3NIKL1 FGFR3::AES, FGFR3::BDRBF3V6, FGFR3::ELAVL3, FGFR3::CHCJ1MTW MET Exon 14 Skipping, RYHWO0C5::MET, V6dcy43::MET, CAPZA2::MET, OXR1::MET, TFG::MET, TPR::MET, PTPRZ1::METNTRK1 BCAN::NTRK1, CD74::NTRK1, REX::NTRK1, LFY7ZY8::NTRK1, LMNA::NTRK1, MPRIP::NTRK1, NFASC::NTRK1, NTRK1::SLKE6G9, JUG282::NTRK1, SQSTM1::NTRK1, SSBP2::NTRK1, TFG::NTRK1, TPM3::NTRK1, TPR::IFWS9CFNH1 AFAP1::NTRK2, AGBL4::NTRK2, NACC2::NTRK2, QKI::NTRK2, SQSTM1::NTRK2, TRIM24::NTRK2, VCL::ZRCF8GRJU3 BTBD1::NTRK3, COX5A::NTRK3, ETV6::GPWK9KLILIN SCAF11::PDGFRAPPARG PAX8::PPARGRAF1 R4AXCL8::RAF1, ESRP1::KRY5DLYU V19xdw35::RELARET ACBD5::RET, AFAP1::RET, AKAP13::RET, CCDC6::RET, CUX1::RET, ERC1::RET, FKBP15::RET, GOLGA5::RET, HOOK3::RET, GUNZ0341::RET, KIF5B::RET, KTN1::RET, NCOA4::RET, PCM1::RET, VFYSA0Z::RET, RUFY2::RET, IZGDC0E::RET, CCC7VU8::RET, TRIM24::RET, TRIM27::RET, TRIM33::RETROS1 CCDC6:ROS1, CD74::ROS1, CEP85L::ROS1, CLIP1::ROS1, CLTC::ROS1, ERC1::ROS1, EZR::ROS1, GOPC::ROS1, HLA_A::ROS1, KDELR2::ROS1, YHKX0578::ROS1, LRIG3::ROS1, MSN::ROS1, MYO5A::ROS1, PPFIBP1::ROS1, PWWP2A::ROS1, SDC4::ROS1, SLC63Z9::ROS1, TFG::ROS1, TPM3::ROS1, ZCCHC8::CFI0VSLDVJ2 TMPRSS2::ERG, TMPRSS2::ETV1, TMPRSS2::ETV4, TMPRSS2::HIE0ZAHLZGWBDY:1) Calderon MM, et al. Standards and Guidelines for the Interpretation andReporting of Sequence Variants in Cancer: A Joint ConsensusRecommendation of the Association for Molecular Pathology, [facility] of Clinical Oncology, and College of [place] Pathologists. JMol Diagn. 2017 Mar;19(1):4-23. doi: 10.1016/j.jmoldx.2016.10.002.PMID: 53086672; PMCID: BCY4848097.2) Steven-Amy C, Lazaro SA, Leo AM. Recurrent gene fusions inprostate cancer. [place] Rev Cancer. 2008 Sep;8(7):497-511. doi:10.1038/ryu3258. Epub 2007Sep 12. PMID: 55306594; PMCID: GLG7118643.3) Brant SC, Fady LA. The genomic landscape of prostate cancer.Front Endocrinol ([facility] 2011August 09;3:69. doi:10.3389/fendo.2012.53413. PMID: 55921830; KFW6434065.4) Dwaine C, et al. Breast Cancer Genomics: Primary and Most CommonMetastases. Cancers ([place]). 2021Sep 14;14(13):3046. doi:10.3390/bkrwzbg28019334. PMID: 55160932; PMCID: NDB2707380.5) Venice R, rUbano ALCARAZJ, CJ. [employer] Clerk Oncogenes but Not as We KnowThem: Targetable Fusion Genes in Breast Cancer. Cancer Discov. 2018May;8(3):272-275. doi: 10.1158/1695-6360.CD-18-0091. PMID: 86195552;PMCID: TSU8424704.6) Gera A, Pamela J, Cristobal JW, Serafin N, Chidi T, Garett CS. The GenomicLandscape of Thyroid Cancer Tumourigenesis and Implications forImmunotherapy. Cells. 2020July 25;10(5):1082. doi:10.3390/lvyns32235217. PMID: 86183082; PMCID: RSZ1330125.7) Latesha GALARZA, et al. Molecular Biomarkers for the Evaluation ofColorectal Cancer: Guideline From the [place] Society for ClinicalPathology, College of [place] Pathologists, Association for MolecularPathology, and the [place] Society of Clinical Oncology. J ClinOncol. 2017 July 25;35(13):7268-8993. doi: 10.1200/JCO.2016.71.9807.Epub 2016May 02. PMID: 66897415.8) Margarita ROJAS, et al. Updated Molecular Testing Guideline for theSelection of Lung Cancer Patients for Treatment With Targeted TyrosineKinase Inhibitors: Guideline From the College of AmericanPathologists, the International Association for the Study of LungCancer, and the Association for Molecular Pathology. Arch Pathol LabMed. 2018 May;142(3):321-346. doi: 10.5858/arpa.2970-2490-CB. [id number] Apr 17. PMID: 08448127.9) Cancer Genome [place] [facility]. Comprehensive genomiccharacterization defines human glioblastoma genes and core pathways.Nature. 2007 23;455(3976):5640-8. doi: 10.1038/gytecy68469. Witv3476 Nov 28. Erratum in: Nature. 2012May 24;494(0596):506. PMID:74996786; PMCID: EUR5931481.10) Alian Herrera. Glioblastoma Genomics: A Very ComplicatedStory. In: Mtz S, rewrite editor. Glioblastoma [Internet].[place]): [employer]; 2016Dec 21. Chapter 1. PMID:68704433.11) June S, Vivienne N, Sherrie H. Melanoma genomics: a zbzgg-px-qsj-artreview of practical clinical applications. Br J Dermatol. ;185(2):272-281. doi: 10.1111/bjd.63416. Epub 2020Aug 30. PMID:40784270.12) Gita L, Dominguez DE. An update on molecular genetics ofgastrointestinal stromal tumours. J Clin Pathol. ;59(6):557-63. doi: 10.1136/jcp.2005.670691. PMID: 03980106; PMCID:XAR4461546.13) Jon ER, Dulce M, Jordan PJB, Belkis TL, Mayrjane LL. Molecularprofiling for precision cancer therapies. Genome Med. 2019;12(1):8. doi: 10.1186/l57201-838-6866-6. PMID: 24478597; PMCID:CQX7099990.14) John Martinez et al. Somatic Genomic Testing in Patients WithMetastatic or Advanced Cancer: ASCO Provisional Clinical Opinion. JClin Oncol. 2021Jul 04;40(11):3787-5947. doi: 10.1200/JCO.21.76873.Ep2021May 13. Erratum in: J Clin Oncol. 2021Sep 13;40(18):2068.PMID: 88181669.15) John Martinez et al. OncoKB: OncoKB: A Precision OncologyKnowledge Base. JCO Precis Oncol. 2016;2017:PO.17.12314. doi:10.1200/PO.17.26347. Epub 2016August 09. PMID: 83299027; PMCID:XQG7817807.DISCLAIMER:This test was developed and its performance characteristics determinedby [facility]'s Pathology and Laboratory Medicine Department. Ithas not been cleared or approved by the FDA. [facility] is regulated under CLIAas certified to perform high-complexity testing. This test is used forclinical purposes. It should not be regarded as investigational or forresearch.Test performed at [facility], [address] [place] [address]. CLIA Number: [id number] performed by Mignon Luciano MD Performed By: #### T OPTO ####[facility] ILLUMINA LIMSCLIA [id number] [address] TYPE + SCREENon 08-28-2024 ABO B Normal [facility] Comment on above: Order Comment: Speci men Type: BLOOD SPECIMENOrdering Facility: [facility] Address: [address] [place] [address] Performed By: #### T SCR ####[facility] BLOOD BANKCLIA [id number] [place] [address] [facility] [place] Rh Nom (Bld) Positive [facility] Comment on above: Order Comment: Speci men Type: BLOOD SPECIMENOrdering Facility: [facility] Address: [address] [place] [address] Performed By: #### T SCR ####[facility] BLOOD BANKCLIA [id number] [place] [id number] [facility] TYPE AND SCREEN EXPIRATION 08/31/2024 23:59 Normal [facility] Comment on above: Order Comment: Speci men Type: BLOOD SPECIMENOrdering Facility: [facility] Address: [address] [place] [address] Performed By: #### T SCR ####[facility] BLOOD BANKCLIA [id number] [place] [id number] [place] CNPNon 05-29-2025 CNPN Normal [facility] CNDSon 08-21-2024 CNDS Normal [facility] CONSULT PROGon 08-21-2024 CONSULT PROG Normal [facility] CONSULT PROG Normal [facility] THERAPY NTon 08-21-2024 THERAPY NT Normal [facility] CASE MGT INIT ASSESon 2024 CASE MGT INIT ASSES Normal [facility] CBC panel Auto (Bld)on 08-20 Erythrocyte distribution width (RBC) [Ratio] 13.0 % Normal 11.5-15.0 [facility] Comment on above: Order Comment: Speci men Type: BLOOD SPECIMENOrdering Facility: [facility] Address: [address] [place] [address] Performed By: #### 5 8410-2 ####[facility] LABORATORYCLIA [id number] [place] [address] [place] Hematocrit (Bld) [Volume fraction] 33.6 % Low 36.0-46.0 [facility] Comment on above: Order Comment: Speci men Type: BLOOD SPECIMENOrdering Facility: [facility] Address: [address] [place] [address] Performed By: #### 5 8410-2 ####[facility] LABORATORYCLIA [id number] [place] [id number] [place] Hemoglobin (Bld) [Mass/Vol] 11.2 g/dL Low 11.5-15.5 [facility] Comment on above: Order Comment: Speci men Type: BLOOD SPECIMENOrdering Facility: [facility] Address: [address] [place] [address] Performed By: #### 5 8410-2 ####[facility] LABORATORYCLIA [id number] [place] [id number] [place] MCH (RBC) [Entitic mass] 33.2 pg Normal 26.0-34.0 [facility] Comment on above: Order Comment: Speci men Type: BLOOD SPECIMENOrdering Facility: [facility] Address: [address] [place] [address] Performed By: #### 5 8410-2 ####[facility] LABORATORYCLIA [id number] [place] [address] [place] MCHC (RBC) [Mass/Vol] 33.3 g/dL Normal 30.5-36.0 [facility] Comment on above: Order Comment: Speci men Type: BLOOD SPECIMENOrdering Facility: [facility] Address: [address] [place] [address] Performed By: #### 5 8410-2 ####EMMAN[facility]EL LABORATORYCLIA [id number] [place] [address] [place] MCV (RBC) [Entitic vol] 99.7 fL Normal 80.0-100.0 [facility] Comment on above: Order Comment: Speci men Type: BLOOD SPECIMENOrdering Facility: [facility] Address: [address] [place] [address] Performed By: #### 5 8410-2 ####EMMAN[facility]EL LABORATORYCLIA [id number] [place] [address] [place] Nucleated RBC (Bld) [#/Vol] 10*3/uL Normal <0.01 [facility] Comment on above: Order Comment: Speci men Type: BLOOD SPECIMENOrdering Facility: [facility] Address: [address] [place] [address] Performed By: #### 5 8410-2 ####EMMANUEL LABORATORYCLIA [id number] [place] [address] [place] Platelet mean volume (Bld) [Entitic vol] 9.5 fL Normal 9.0-12.7 [facility] Comment on above: Order Comment: Speci men Type: BLOOD SPECIMENOrdering Facility: [facility] Address: [address] [place] [address] Performed By: #### 5 8410-2 ####[facility] LABORATORYCLIA [id number] [place] [address] [place] Platelets (Bld) [#/Vol] 235 10*3/uL Normal 150-400 [facility] Comment on above: Order Comment: Speci men Type: BLOOD SPECIMENOrdering Facility: [facility] Address: [address] [place] [address] Performed By: #### 5 8410-2 ####[facility] LABORATORYCLIA [id number] [place] [id number] [place] RBC (Bld) [#/Vol] 3.37 10*6/uL Low 3.90-5.20 [facility] Comment on above: Order Comment: Speci men Type: BLOOD SPECIMENOrdering Facility: [facility] Address: [address] [place], [place] [address] [address] Performed By: #### 5 8410-2 ####[facility] LABORATORYCLIA [id number] [place] [id number] [place] WBC (Bld) [#/Vol] 5.29 10*3/uL Normal 3.70-11.00 [facility] Comment on above: Order Comment: Speci men Type: BLOOD SPECIMENOrdering Facility: [facility] Address: [address] [place] [address] Performed By: #### 5 8410-2 ####[facility] LABORATORYCLIA [id number] [place] [id number] [place] CONSULTon 08-20-2024 CONSULT Normal [facility] CONSULT PROGon 08-20-2024 CONSULT PROG Normal [facility] Comprehensive metabolic 2000 panelon 08-20-2024 Albumin [Mass/Vol] 3.8 g/dL Low 3.9-4.9 [facility] Comment on above: Order Comment: Speci men Type: BLOOD SPECIMENOrdering Facility: [facility] Address: [address] [place] [address] Performed By: #### 1 9123-9, 2777-, 79808-6 ####[facility] LABORATORYCLIA [id number] [place] [id number] [place] ALP [Catalytic activity/Vol] 61 U/L Normal 34-123 [facility] Comment on above: Order Comment: Speci men Type: BLOOD SPECIMENOrdering Facility: [facility] Address: [address] [place] [address] Performed By: #### 1 9123-9, 2777-1, 54712-1 ####[facility] LABORATORYCLIA [id number] [place] [address] [place] ALT [Catalytic activity/Vol] 7 U/L Normal 7-38 [facility] Comment on above: Order Comment: Speci men Type: BLOOD SPECIMENOrdering Facility: [facility] Address: [address] [place] [address] Performed By: #### 1 9123-9, 27709-24, 09083-8 ####[facility] LABORATORYCLIA [id number] [place] [id number] [place] Anion gap [Moles/Vol] 12 mmol/L Normal 8-15 [facility] Comment on above: Order Comment: Speci men Type: BLOOD SPECIMENOrdering Facility: [facility] Address: [address] [place] [address] Performed By: #### 1 9123-9, 27709-24, ####[facility] LABORATORYCLIA [id number] [place] [address] [place] AST [Catalytic activity/Vol] 18 U/L Normal 13-35 [facility] Comment on above: Order Comment: Speci men Type: BLOOD SPECIMENOrdering Facility: [facility] Address: [address] [place] [address] Performed By: #### 1 9123-9, 27709-24, 63202-0 ####[facility] LABORATORYCLIA [id number] [place] [address] [place] Bilirubin [Mass/Vol] 0.3 mg/dL Normal 0.2-1.3 [facility] Comment on above: Order Comment: Speci men Type: BLOOD SPECIMENOrdering Facility: [facility] Address: [address] [place] [address] Performed By: #### 1 9123-9, 27709-24, 88049-5 ####[facility] LABORATORYCLIA [id number] [place] [address] [place] Calcium [Mass/Vol] 9.2 mg/dL Normal 8.5-10.2 [facility] Comment on above: Order Comment: Speci men Type: BLOOD SPECIMENOrdering Facility: [facility] Address: [address] [place] [address] Performed By: #### 1 9123-9, 2776-03, 27691-6 ####EMMANUEL LABORATORYCLIA [id number] [place] [address] [place] Chloride [Moles/Vol] 99 mmol/L Normal 98-107 [facility] Comment on above: Order Comment: Speci men Type: BLOOD SPECIMENOrdering Facility: [facility] Address: [address] [place] [address] Performed By: #### 1 9123-9, 277-, 39176-1 ####EMMANUEL LABORATORYCLIA [id number] [place] [id number] [place] CO2 [Moles/Vol] 27 mmol/L Normal 22-30 [facility] Comment on above: Order Comment: Speci men Type: BLOOD SPECIMENOrdering Facility: [facility] Address: [address] [place] [address] Performed By: #### 1 9123-9, 2776-03, 68459-0 ####[facility] LABORATORYCLIA [id number] [place] [address] [place] Creatinine [Mass/Vol] 0.75 mg/dL Normal 0.58-0.96 [facility] Comment on above: Order Comment: Speci men Type: BLOOD SPECIMENOrdering Facility: [facility] Address: [address] [place] [address] Performed By: #### 1 9123-9, 27709-24, 37407-7 ####[facility] LABORATORYCLIA [id number] [place] [id number] [place] Creatinine and Glomerular filtration rate.predicted panel (S/P/Bld) 88 mL/min/1.73m??? Normal >=60 [facility] Comment on above: Order Comment: Speci men Type: BLOOD SPECIMENOrdering Facility: [facility] Address: [address] [place] [address] Result Comment: Sana mated Glomerular Filtration Rate [...] GFR. Performed By: #### 1 9123-9, 2777-, 58076-3 ####[facility] LABORATORYCLIA [id number] [place] [id number] [place] Glucose [Mass/Vol] 73 mg/dL Low 74-99 [facility] Comment on above: Order Comment: Umesh baugh Type: BLOOD SPECIMENOrdering Facility: [facility] Address: [address] [place] [address] Result Comment: The [place] Diabetes Association (ADA) provides guidance for cutoff [...] Standards of Medical Care in Diabetes 2016, [place] [employer]. Diabetes Care. 2016.39(Suppl 1). Performed By: #### 1 9123-9, 2777-, 07467-6 ####EMMANUEL LABORATORYIA [id number] [place] [id number] [place] Potassium [Moles/Vol] 4.3 mmol/L Normal 3.7-5.1 [facility] Comment on above: Order Comment: Umesh baugh Type: BLOOD SPECIMENOrdering Facility: [facility] Address: [address] [place] [address] Performed By: #### 1 9123-9, 2777-, 90404-9 ####[facility] LABORATORYCLIA [id number] [place] [id number] [place] Protein [Mass/Vol] 6.8 g/dL Normal 6.3-8.0 [facility] Comment on above: Order Comment: Speci men Type: BLOOD SPECIMENOrdering Facility: [facility] Address: [address] [place] [address] Performed By: #### 1 9123-9, 2777-1, 27225-6 ####[facility] LABORATORYCLIA [id number] [place] [id number] [place] Sodium [Moles/Vol] 138 mmol/L Normal 136-144 [facility] Comment on above: Order Comment: Speci men Type: BLOOD SPECIMENOrdering Facility: [facility] Address: [address] [place] [address] Performed By: #### 1 9123-9, 27709-24, 32938-5 ####[facility] LABORATORYCLIA [id number] [place] [address] [place] Urea nitrogen [Mass/Vol] 13 mg/dL Normal 7-21 [facility] Comment on above: Order Comment: Speci men Type: BLOOD SPECIMENOrdering Facility: [facility] Address: [address] [place] [address] Performed By: #### 1 9123-9, 27709-24, 42157-8 ####[facility] LABORATORYCLIA [id number] [place] [id number] [place] HISTORY PHYSICALon HISTORY PHYSICAL Normal [facility] Magnesium SerPl-mCncon 08-20 Magnesium [Mass/Vol] 1.7 mg/dL Normal 1.7-2.3 [facility] Comment on above: Order Comment: Speci men Type: BLOOD SPECIMENOrdering Facility: [facility] Address: [address] [place] [address] Performed By: #### 1 9123-9, 2771, 45616-4 ####[facility] LABORATORYCLIA [id number] [place] [id number] [place] NURSING PROGon 08-20-2024 NURSING PROG Normal [facility] NUTRITIONon 08-20-2024 NUTRITION Normal [facility] Phosphate SerPl-mCncon 08-20 Phosphate [Mass/Vol] 4.9 mg/dL High 2.7-4.8 [facility] Comment on above: Order Comment: Speci men Type: BLOOD SPECIMENOrdering Facility: [facility] Address: [address] [place] [address] Performed By: #### 1 9123-9, 2777-1, 15501-3 ####[facility] LABORATORYCLIA [id number] [place] [id number] [place] CBC W Auto Differential pane l (Bld)on 08-19-2024 Basophils (Bld) [#/Vol] 0.09 10*3/uL Normal <0.11 [facility] Comment on above: Order Comment: Speci men Type: BLOOD SPECIMENOrdering Facility: [facility] Address: [address] [place] [address] Performed By: #### 5 7021-8 ####[facility] LABORATORYCLIA [id number] [place] [id number] [place] Basophils/100 WBC (Bld) 1.1 % Normal [facility] Comment on above: Order Comment: Speci men Type: BLOOD SPECIMENOrdering Facility: [facility] Address: [address] [place] [address] Performed By: #### 5 7021-8 ####[facility] LABORATORYCLIA [id number] [place] [id number] [place] Differential cell count method Nom (Bld) Auto Normal [facility] Comment on above: Order Comment: Speci men Type: BLOOD SPECIMENOrdering Facility: [facility] Address: [address] [place] [address] Performed By: #### 5 7021-8 ####[facility] LABORATORYCLIA [id number] [place] [id number] [place] Eosinophils (Bld) [#/Vol] 0.31 10*3/uL Normal <0.46 [facility] Comment on above: Order Comment: Speci men Type: BLOOD SPECIMENOrdering Facility: [facility] Address: [address] [place] [address] Performed By: #### 5 7021-8 ####[facility] LABORATORYCLIA [id number] [place] [id number] [place] Eosinophils/100 WBC (Bld) 3.8 % Normal [facility] Comment on above: Order Comment: Speci men Type: BLOOD SPECIMENOrdering Facility: [facility] Address: [address] [place] [address] Performed By: #### 5 7021-8 ####[facility] LABORATORYCLIA [id number] [place] [address] [place] Erythrocyte distribution width (RBC) [Ratio] 13.5 % Normal 11.5-15.0 [facility] Comment on above: Order Comment: Speci men Type: BLOOD SPECIMENOrdering Facility: [facility] Address: [address] [place] [address] Performed By: #### 5 7021-8 ####EMMAN[facility] LABORATORYCLIA [id number] [place] [address] [place] Hematocrit (Bld) [Volume fraction] 37.1 % Normal 36.0-46.0 [facility] Comment on above: Order Comment: Speci men Type: BLOOD SPECIMENOrdering Facility: [facility] Address: [address] [place] [address] Performed By: #### 5 7021-8 ####EMMAN[facility]EL LABORATORYCLIA [id number] [place] [address] [place] Hemoglobin (Bld) [Mass/Vol] 12.4 g/dL Normal 11.5-15.5 [facility] Comment on above: Order Comment: Speci men Type: BLOOD SPECIMENOrdering Facility: [facility] Address: [address] [place] [address] Performed By: #### 5 7021-8 ####[facility] LABORATORYCLIA [id number] [place] [address] [place] Immature granulocytes (Bld) [#/Vol] 0.03 10*3/uL Normal <0.10 [facility] Comment on above: Order Comment: Speci men Type: BLOOD SPECIMENOrdering Facility: [facility] Address: [address] [place] [address] Performed By: #### 5 7021-8 ####[facility] LABORATORYCLIA [id number] [address] Immature granulocytes/100 WBC (Bld) 0.4 % Normal [facility] Comment on above: Order Comment: Speci men Type: BLOOD SPECIMENOrdering Facility: [facility] Address: [address] [place] [address] Performed By: #### 5 7021-8 ####[facility] LABORATORYCLIA [id number] [place] [address] [place] Lymphocytes (Bld) [#/Vol] 1.26 10*3/uL Normal 1.00-4.00 [facility] Comment on above: Order Comment: Speci men Type: BLOOD SPECIMENOrdering Facility: [facility] Address: [address] [place] [address] Performed By: #### 5 7021-8 ####[facility] LABORATORYCLIA [id number] [address] [place] Lymphocytes/100 WBC (Bld) 15.6 % Normal [facility] Comment on above: Order Comment: Speci men Type: BLOOD SPECIMENOrdering Facility: [facility] Address: [address] [place] [address] Performed By: #### 5 7021-8 ####EMMAN[facility] LABORATORYCLIA [id number] [place] [address] [place] MCH (RBC) [Entitic mass] 33.6 pg Normal 26.0-34.0 [facility] Comment on above: Order Comment: Speci men Type: BLOOD SPECIMENOrdering Facility: [facility] Address: [address] [place] [address] Performed By: #### 5 7021-8 ####[facility] LABORATORYCLIA [id number] [address] [place] MCHC (RBC) [Mass/Vol] 33.4 g/dL Normal 30.5-36.0 [facility] Comment on above: Order Comment: Speci men Type: BLOOD SPECIMENOrdering Facility: [facility] Address: [address] [place] [address] Performed By: #### 5 7021-8 ####EMMAN[facility] LABORATORYCLIA [id number] [place] [id number] [place] MCV (RBC) [Entitic vol] 100.5 fL High 80.0-100.0 [facility] Comment on above: Order Comment: Speci men Type: BLOOD SPECIMENOrdering Facility: [facility] Address: [address] [place] [address] Performed By: #### 5 7021-8 ####[facility] LABORATORYCLIA [id number] [address] [place] Monocytes (Bld) [#/Vol] 0.72 10*3/uL Normal <0.87 [facility] Comment on above: Order Comment: Speci men Type: BLOOD SPECIMENOrdering Facility: [facility] Address: [address] [place] [address] Performed By: #### 5 7021-8 ####[facility] LABORATORYCLIA [id number] [address] Monocytes/100 WBC (Bld) 8.9 % Normal [facility] Comment on above: Order Comment: Speci men Type: BLOOD SPECIMENOrdering Facility: [facility] Address: [address] [place] [address] Performed By: #### 5 7021-8 ####[facility] LABORATORYCLIA [id number] [place] [address] [place] Neutrophils (Bld) [#/Vol] 5.66 10*3/uL Normal 1.45-7.50 [facility] Comment on above: Order Comment: Speci men Type: BLOOD SPECIMENOrdering Facility: [facility] Address: [address] [place] [address] Performed By: #### 5 7021-8 ####[facility] LABORATORYCLIA [id number] [place] [id number] [place] Neutrophils/100 WBC (Bld) 70.2 % Normal [facility] Comment on above: Order Comment: Speci men Type: BLOOD SPECIMENOrdering Facility: [facility] Address: [address] [place] [address] Performed By: #### 5 7021-8 ####EM[facility] LABORATORYCLIA [id number] [place] [id number] [place] Nucleated RBC (Bld) [#/Vol] 10*3/uL Normal <0.01 [facility] Comment on above: Order Comment: Speci men Type: BLOOD SPECIMENOrdering Facility: [facility] Address: [address] [place] [address] Performed By: #### 5 7021-8 ####[facility] LABORATORYCLIA [id number] [place] [address] [place] Nucleated RBC/100 WBC (Bld) [Ratio] 0.0 /100 WBC Normal [facility] Comment on above: Order Comment: Speci men Type: BLOOD SPECIMENOrdering Facility: [facility] Address: [address] [place] [address] Performed By: #### 5 7021-8 ####[facility] LABORATORYCLIA [id number] [place] [address] [place] Platelet mean volume (Bld) [Entitic vol] 9.7 fL Normal 9.0-12.7 [facility] Comment on above: Order Comment: Speci men Type: BLOOD SPECIMENOrdering Facility: [facility] Address: [address] [place] [address] Performed By: #### 5 7021-8 ####EMMAN[facility] LABORATORYCLIA [id number] [place] [id number] [place] Platelets (Bld) [#/Vol] 277 10*3/uL Normal 150-400 [facility] Comment on above: Order Comment: Speci men Type: BLOOD SPECIMENOrdering Facility: [facility] Address: [address] [place] [address] Performed By: #### 5 7021-8 ####EMMAN[facility] LABORATORYCLIA [id number] [place] [address] [place] RBC (Bld) [#/Vol] 3.69 10*6/uL Low 3.90-5.20 [facility] Comment on above: Order Comment: Speci men Type: BLOOD SPECIMENOrdering Facility: [facility] Address: [address] [place] [address] Performed By: #### 5 7021-8 ####[facility] LABORATORYCLIA [id number] [place] [id number] [place] WBC (Bld) [#/Vol] 8.07 10*3/uL Normal 3.70-11.00 [facility] Comment on above: Order Comment: Speci men Type: BLOOD SPECIMENOrdering Facility: [facility] Address: [address] [place] [address] Performed By: #### 5 7021-8 ####[facility] LABORATORYCLIA [id number] [place] [address] [place] CONSULTon 08-19-2024 CONSULT Normal [facility] CT ABD/PEL W IVCONon 025 CT ABD/PEL W IVCON Normal [facility] Comprehensive metabolic 2000 panelon 08-19-2024 Albumin [Mass/Vol] 4.3 g/dL Normal 3.9-4.9 [facility] Comment on above: Order Comment: Speci men Type: BLOOD SPECIMENOrdering Facility: [facility] Address: [address] [place] [address] Performed By: #### 3 040-3, , ####[facility] LABORATORYCLIA [id number] [place] [id number] [place] ALP [Catalytic activity/Vol] 72 U/L Normal 34-123 [facility] Comment on above: Order Comment: Speci men Type: BLOOD SPECIMENOrdering Facility: [facility] Address: [address] [place] [address] Performed By: #### 3 040-3, , 13599-2 ####[facility] LABORATORYCLIA [id number] [place] [address] [place] ALT [Catalytic activity/Vol] 8 U/L Normal 7-38 [facility] Comment on above: Order Comment: Speci men Type: BLOOD SPECIMENOrdering Facility: [facility] Address: [address] [place] [address] Performed By: #### 3 040-3, , ####[facility] LABORATORYCLIA [id number] [place] [id number] [place] Anion gap [Moles/Vol] 15 mmol/L Normal 8-15 [facility] Comment on above: Order Comment: Speci men Type: BLOOD SPECIMENOrdering Facility: [facility] Address: [address] [place] [address] Performed By: #### 3 040-3, , ####[facility] LABORATORYCLIA [id number] [place] [address] [place] AST [Catalytic activity/Vol] 27 U/L Normal 13-35 [facility] Comment on above: Order Comment: Speci men Type: BLOOD SPECIMENOrdering Facility: [facility] Address: [address] [place] [address] Performed By: #### 3 040-3, , ####[facility] LABORATORYCLIA [id number] [place] [address] [place] Bilirubin [Mass/Vol] 0.3 mg/dL Normal 0.2-1.3 [facility] Comment on above: Order Comment: Speci men Type: BLOOD SPECIMENOrdering Facility: [facility] Address: [address] [place] [address] Performed By: #### 3 040-3, , ####EMMANUEL LABORATORYCLIA [id number] [place] [id number] [place] Calcium [Mass/Vol] 9.7 mg/dL Normal 8.5-10.2 [facility] Comment on above: Order Comment: Speci men Type: BLOOD SPECIMENOrdering Facility: [facility] Address: [address] [place] [address] Performed By: #### 3 040-3, , ####[facility] LABORATORYCLIA [id number] [place] [address] [place] Chloride [Moles/Vol] 95 mmol/L Low 98-107 [facility] Comment on above: Order Comment: Speci men Type: BLOOD SPECIMENOrdering Facility: [facility] Address: [address] [place] [address] Performed By: #### 3 040-3, , ####[facility] LABORATORYCLIA [id number] [place] [id number] [place] CO2 [Moles/Vol] 27 mmol/L Normal 22-30 [facility] Comment on above: Order Comment: Speci men Type: BLOOD SPECIMENOrdering Facility: [facility] Address: [address] [place] [address] Performed By: #### 3 040-3, , ####[facility] LABORATORYCLIA [id number] [place] [id number] [place] Creatinine [Mass/Vol] 0.74 mg/dL Normal 0.58-0.96 [facility] Comment on above: Order Comment: Speci men Type: BLOOD SPECIMENOrdering Facility: [facility] Address: [address] [place] [address] Performed By: #### 3 040-3, , ####[facility] LABORATORYCLIA [id number] [place] [id number] [place] Creatinine and Glomerular filtration rate.predicted panel (S/P/Bld) 90 mL/min/1.73m??? Normal >=60 [facility] Comment on above: Order Comment: Speci men Type: BLOOD SPECIMENOrdering Facility: [facility] Address: [address] [place] [address] Result Comment: Sana mated Glomerular Filtration Rate [...] GFR. Performed By: #### 3 040-3, , ####EMMANUEL LABORATORYCLIA [id number] [place] [address] [place] Glucose [Mass/Vol] 97 mg/dL Normal 74-99 [facility] Comment on above: Order Comment: Umesh baugh Type: BLOOD SPECIMENOrdering Facility: [facility] Address: [address] [place] [address] Result Comment: The [place] Diabetes Association (ADA) provides guidance for cutoff [...] Standards of Medical Care in Diabetes 2016, [place] Diabetes Association. Diabetes Care. 2016.39(Suppl 1). Performed By: #### 3 040-3, , ####EMMANUEL LABORATORYCLIA [id number] [place] [id number] [place] Potassium [Moles/Vol] 3.6 mmol/L Low 3.7-5.1 [facility] Comment on above: Order Comment: Umesh baugh Type: BLOOD SPECIMENOrdering Facility: [facility] Address: [address] [place] [id number] Performed By: #### 3 040-3, , ####EMMANUEL LABORATORYCLIA [id number] [place] [address] [place] Protein [Mass/Vol] 7.9 g/dL Normal 6.3-8.0 [facility] Comment on above: Order Comment: Speci men Type: BLOOD SPECIMENOrdering Facility: [facility] Address: [address] [place], [place] [address] Performed By: #### 3 040-3, , ####EMMANUEL LABORATORYCLIA [id number] [place] [address] [facility] [place] Sodium [Moles/Vol] 137 mmol/L Normal 136-144 [facility] Comment on above: Order Comment: Speci men Type: BLOOD SPECIMENOrdering Facility: [facility] Address: [address] [place] [address] Performed By: #### 3 040-3, 89385-3, ####EMMAN[facility]EL LABORATORYCLIA [id number] [place] [address] [facility] [place] Urea nitrogen [Mass/Vol] 12 mg/dL Normal 7-21 [facility] Comment on above: Order Comment: Speci men Type: BLOOD SPECIMENOrdering Facility: [facility] Address: [address] [place] [address] Performed By: #### 3 040-3, , ####[facility] LABORATORYCLIA [id number] [place] [address] [facility] ED NOTEon 08-19-2024 ED NOTE HNO ID: [id number] Author: DAREN HERNANDEZ RN Service: ? Author Type: Registered Nurse Type: ED Notes Filed: 08/19/2024 15:00 Note Text: Report to REAL Plata Normal [facility] ED NOTE HNO ID: [id number] Author: PRISCILLA TAN RN Service: Nursing Author Type: Registered Nurse Type: ED Notes Filed: 08/19/2024 09:52 Note Text: Sts pain severe and unable to control at home. Sts had CT on 08/14. Unable to reach surgeon by phone. Normal [facility] ED PROV NOTEon 08-19-2024 ED PROV NOTE Normal [facility] ED Triage Noteon 08-19-2024 ED Triage Note Normal [facility] Lipase SerPl-cCncon 08-20-19 Lipase [Catalytic activity/Vol] 14 U/L Low 16-61 [facility] Comment on above: Order Comment: Speci men Type: BLOOD SPECIMENOrdering Facility: [facility] Address: [address] [place] [address] Performed By: #### 3 040-3, , ####[facility] LABORATORYCLIA [id number] [place] [id number] [place] Magnesium SerPl-mCncon 08-19 Magnesium [Mass/Vol] 1.8 mg/dL Normal 1.7-2.3 [facility] Comment on above: Order Comment: Speci men Type: BLOOD SPECIMENOrdering Facility: [facility] Address: [address] [place] [address] Performed By: #### 3 040-3, , ####[facility] LABORATORYCLIA [id number] [place] [address] [place] Urinalysis complete panel (U )on 08-19-2024 Bilirubin Ql (U) Negative Normal Negative [facility] Comment on above: Order Comment: Speci men Type: URINE SPECIMENOrdering Facility: [facility] Address: [address] [place] [address] Performed By: #### 2 4356-8 ####[facility] LABORATORYCLIA [id number] [place] [address] [place] Clarity (Unsp spec) Clear Normal Clear [facility] Comment on above: Order Comment: Speci men Type: URINE SPECIMENOrdering Facility: [facility] Address: [address] [place] [address] Performed By: #### 2 4356-8 ####[facility] LABORATORYCLIA [id number] [place] [address] [place] Color (U) Light Yellow Normal Yellow [facility] Comment on above: Order Comment: Speci men Type: URINE SPECIMENOrdering Facility: [facility] Address: [address] [place] [address] Performed By: #### 2 4356-8 ####[facility] LABORATORYCLIA [id number] [address] [place] Epithelial cells LM.HPF (Urine sed) [#/Area] Few Normal [facility] Comment on above: Order Comment: Speci men Type: URINE SPECIMENOrdering Facility: [facility] Address: [address] [place] [address] Performed By: #### 2 4356-8 ####[facility] LABORATORYCLIA [id number] [place] [address] [place] Glucose Test strip (U) [Mass/Vol] Negative Normal Trace, Negative [facility] Comment on above: Order Comment: Speci men Type: URINE SPECIMENOrdering Facility: [facility] Address: [address] [place] [address] Performed By: #### 2 4356-8 ####[facility] LABORATORYCLIA [id number] [place] [address] [place] Hemoglobin Ql (U) Negative Normal Negative, Trace [facility] Comment on above: Order Comment: Speci men Type: URINE SPECIMENOrdering Facility: [facility] Address: [address] [place] [address] Performed By: #### 2 4356-8 ####[facility] LABORATORYCLIA [id number] [address] [place] Ketones Ql (U) 1+ Abnormal Negative, Trace [facility] Comment on above: Order Comment: Speci men Type: URINE SPECIMENOrdering Facility: [facility] Address: [address] [place] [address] Performed By: #### 2 4356-8 ####[facility] LABORATORYCLIA [id number] [address] [place] Leukocyte esterase Test strip Ql (U) Negative Normal Negative, 25 Adeola/uL [facility] Comment on above: Order Comment: Speci men Type: URINE SPECIMENOrdering Facility: [facility] Address: [address] [place] [address] Performed By: #### 2 4356-8 ####[facility] LABORATORYCLIA [id number] [place] [address] [place] Nitrite Ql (U) Negative Normal Negative [facility] Comment on above: Order Comment: Speci men Type: URINE SPECIMENOrdering Facility: [facility] Address: [address] [place] [address] Performed By: #### 2 4356-8 ####[facility] LABORATORYCLIA [id number] [place] [address] [place] pH (U) 6.5 [pH] Normal 5.0-8.0 [facility] Comment on above: Order Comment: Speci men Type: URINE SPECIMENOrdering Facility: [facility] Address: [address] [place] [address] Performed By: #### 2 4356-8 ####[facility] LABORATORYCLIA [id number] [address] [place] Protein (U) [Mass/Vol] 1+ Abnormal Trace, Negative [facility] Comment on above: Order Comment: Speci men Type: URINE SPECIMENOrdering Facility: [facility] Address: [address] [place] [address] Performed By: #### 2 4356-8 ####[facility] LABORATORYCLIA [id number] [place] [address] [place] RBC LM.HPF (Urine sed) [#/Area] 0-3 /HPF Normal 0-3 /HPF [facility] Comment on above: Order Comment: Speci men Type: URINE SPECIMENOrdering Facility: [facility] Address: [address] [place] [address] Performed By: #### 2 4356-8 ####[facility] LABORATORYCLIA [id number] [place] [id number] [place] Specific gravity (U) [Rel density] >1.050 High 1.005-1.03 0 [facility] Comment on above: Order Comment: Speci men Type: URINE SPECIMENOrdering Facility: [facility] Address: [address] [place] [address] Performed By: #### 2 4356-8 ####[facility] LABORATORYCLIA [id number] [place] [id number] [place] Urobilinogen Ql (U) Normal Normal Normal [facility] Comment on above: Order Comment: Speci men Type: URINE SPECIMENOrdering Facility: [facility] Address: [address] [place] [address] Performed By: #### 2 4356-8 ####[facility] HOSPITALIA [id number] [place] [address] [place] WBC LM.HPF (Urine sed) [#/Area] 0-5 /HPF Normal 0-5 /HPF [facility] Comment on above: Order Comment: Speci men Type: URINE SPECIMENOrdering Facility: [facility] Address: [address] [place] [address] Performed By: #### 2 4356-8 ####[facility] [id number] [place] [address] [place] CBC W Auto Differential pane l (Bld)on 08-14-2024 Basophils (Bld) [#/Vol] 0.07 10*3/uL Normal <0.11 [facility] Comment on above: Order Comment: Speci men Type: BLOOD SPECIMENOrdering Facility: [facility] Address: [address] [place] [address] Performed By: #### 5 7021-8 ####[facility] [id number] [place] [address] [place] Basophils/100 WBC (Bld) 1.0 % Normal [facility] Comment on above: Order Comment: Speci men Type: BLOOD SPECIMENOrdering Facility: [facility] Address: [address] [place] [address] Performed By: #### 5 7021-8 ####[facility] [id number] [place] [address] [place] Differential cell count method Nom (Bld) Auto Normal [facility] Comment on above: Order Comment: Speci men Type: BLOOD SPECIMENOrdering Facility: [facility] Address: [address] [place] [address] Performed By: #### 5 7021-8 ####[facility] MILLWNCLIA [id number] [place] [address] [place] Eosinophils (Bld) [#/Vol] 0.50 10*3/uL High <0.46 [facility] Comment on above: Order Comment: Speci men Type: BLOOD SPECIMENOrdering Facility: [facility] Address: [address] [place] [address] Performed By: #### 5 7021-8 ####[facility] DAYTONLIA [id number] [place] [address] [place] Eosinophils/100 WBC (Bld) 7.3 % Normal [facility] Comment on above: Order Comment: Speci men Type: BLOOD SPECIMENOrdering Facility: [facility] Address: [address] [place] [address] Performed By: #### 5 7021-8 ####[facility] DAYTONLIA [id number] [place] [address] [place] Erythrocyte distribution width (RBC) [Ratio] 14.2 % Normal 11.5-15.0 [facility] Comment on above: Order Comment: Speci men Type: BLOOD SPECIMENOrdering Facility: [facility] Address: [address] [place] [address] Performed By: #### 5 7021-8 ####[facility] DAYTONLIA [id number] [place] [address] [place] Hematocrit (Bld) [Volume fraction] 33.9 % Low 36.0-46.0 [facility] Comment on above: Order Comment: Speci men Type: BLOOD SPECIMENOrdering Facility: [facility] Address: [address] [place] [address] Performed By: #### 5 7021-8 ####[facility] HOSPITALNCLIA [id number] [place] [id number] [place] Hemoglobin (Bld) [Mass/Vol] 11.4 g/dL Low 11.5-15.5 [facility] Comment on above: Order Comment: Speci men Type: BLOOD SPECIMENOrdering Facility: [facility] Address: [address] [place] [address] Performed By: #### 5 7021-8 ####[facility] HOSPITALWRILIA [id number] [place] [address] [place] Immature granulocytes (Bld) [#/Vol] 10*3/uL Normal <0.10 [facility] Comment on above: Order Comment: Speci men Type: BLOOD SPECIMENOrdering Facility: [facility] Address: [address] [place] [address] Performed By: #### 5 7021-8 ####[facility] DAYTONLIA [id number] [place] [address] [place] Immature granulocytes/100 WBC (Bld) 0.1 % Normal [facility] Comment on above: Order Comment: Speci men Type: BLOOD SPECIMENOrdering Facility: [facility] Address: [address] [place] [address] Performed By: #### 5 7021-8 ####[facility] DAYTONLIA [id number] [place] [address] [place] Lymphocytes (Bld) [#/Vol] 2.00 10*3/uL Normal 1.00-4.00 [facility] Comment on above: Order Comment: Speci men Type: BLOOD SPECIMENOrdering Facility: [facility] Address: [address] [place] [address] Performed By: #### 5 7021-8 ####[facility] HOSPITALNCLIA [id number] [place] [address] [place] Lymphocytes/100 WBC (Bld) 29.3 % Normal [facility] Comment on above: Order Comment: Speci men Type: BLOOD SPECIMENOrdering Facility: [facility] Address: [address] [place] [address] Performed By: #### 5 7021-8 ####[facility] B[facility]NUALLOYFUAD [id number] [place] [address] [place] MCH (RBC) [Entitic mass] 34.4 pg High 26.0-34.0 [facility] Comment on above: Order Comment: Speci men Type: BLOOD SPECIMENOrdering Facility: [facility] Address: [address] [place] [address] Performed By: #### 5 7021-8 ####[facility]ITAL[facility] [id number] [place] [address] [place] MCHC (RBC) [Mass/Vol] 33.6 g/dL Normal 30.5-36.0 [facility] Comment on above: Order Comment: Speci men Type: BLOOD SPECIMENOrdering Facility: [facility] Address: [address] [place] [address] Performed By: #### 5 7021-8 ####[facility] [id number] [place] [address] [place] MCV (RBC) [Entitic vol] 102.4 fL High 80.0-100.0 [facility] Comment on above: Order Comment: Speci men Type: BLOOD SPECIMENOrdering Facility: [facility] Address: [address] [place] [address] Performed By: #### 5 7021-8 ####[facility] [id number] [place] [address] [place] Monocytes (Bld) [#/Vol] 0.51 10*3/uL Normal <0.87 [facility] Comment on above: Order Comment: Speci men Type: BLOOD SPECIMENOrdering Facility: [facility] Address: [address] [place] [address] Performed By: #### 5 7021-8 ####[facility] MILLWNCLIA [id number] [place] [address] [place] Monocytes/100 WBC (Bld) 7.5 % Normal [facility] Comment on above: Order Comment: Speci men Type: BLOOD SPECIMENOrdering Facility: [facility] Address: [address] [place] [address] Performed By: #### 5 7021-8 ####[facility] HOSPITALNCLIA [id number] [place] [address] [place] Neutrophils (Bld) [#/Vol] 3.73 10*3/uL Normal 1.45-7.50 [facility] Comment on above: Order Comment: Speci men Type: BLOOD SPECIMENOrdering Facility: [facility] Address: [address] [place] [address] Performed By: #### 5 7021-8 ####[facility] DAYTONLIA [id number] [place] [address] [place] Neutrophils/100 WBC (Bld) 54.8 % Normal [facility] Comment on above: Order Comment: Speci men Type: BLOOD SPECIMENOrdering Facility: [facility] Address: [address] [place] [address] Performed By: #### 5 7021-8 ####[facility] HOSPITALWNCLIA [id number] [place] [address] [place] Nucleated RBC (Bld) [#/Vol] 10*3/uL Normal <0.01 [facility] Comment on above: Order Comment: Speci men Type: BLOOD SPECIMENOrdering Facility: [facility] Address: [address] [place] [address] Performed By: #### 5 7021-8 ####[facility] HOSPITALNCLIA [id number] [place] [address] [place] Nucleated RBC/100 WBC (Bld) [Ratio] 0.0 /100 WBC Normal [facility] Comment on above: Order Comment: Speci men Type: BLOOD SPECIMENOrdering Facility: [facility] Address: [address] [place] [address] Performed By: #### 5 7021-8 ####[facility] HOSPITALNCA [id number] [place] [address] [place] Platelet mean volume (Bld) [Entitic vol] 9.3 fL Normal 9.0-12.7 [facility] Comment on above: Order Comment: Speci men Type: BLOOD SPECIMENOrdering Facility: [facility] Address: [address] [place] [address] Performed By: #### 5 7021-8 ####[facility] HOSPITALNCA [id number] [place] [address] [place] Platelets (Bld) [#/Vol] 267 10*3/uL Normal 150-400 [facility] Comment on above: Order Comment: Speci men Type: BLOOD SPECIMENOrdering Facility: [facility] Address: [address] [place] [address] Performed By: #### 5 7021-8 ####[facility] HOSPITALNCA [id number] [place] [address] [place] RBC (Bld) [#/Vol] 3.31 10*6/uL Low 3.90-5.20 [facility] Comment on above: Order Comment: Speci men Type: BLOOD SPECIMENOrdering Facility: [facility] Address: [address] [place] [address] Performed By: #### 5 7021-8 ####[facility] HOSPITALNCLIA [id number] [place] [address] [place] WBC (Bld) [#/Vol] 6.82 10*3/uL Normal 3.70-11.00 [facility] Comment on above: Order Comment: Speci men Type: BLOOD SPECIMENOrdering Facility: [facility] Address: [address] [place] [address] Performed By: #### 5 7021-8 ####[facility] MILLTOWNCLIA [id number] [place] [address] [place] CT ABD/PEL W IVCONon 025 CT ABD/PEL W IVCON Normal [facility] Ferritin SerPl-mCncon 2024 Ferritin [Mass/Vol] 55.8 ng/mL Normal 14.7-205.1 [facility] Comment on above: Order Comment: Speci men Type: BLOOD SPECIMENOrdering Facility: [facility] Address: [address] [place] [address] Performed By: #### 5 0190-8, 2276-4 ####[facility] LABCLIA [id number] [place] [address] [place] HISTORY PHYSICALon HISTORY PHYSICAL Normal [facility] HbA1c (Bld)on 08-14-2024 Average glucose Estimated from glycated hemoglobin (Bld) [Mass/Vol] 80 mg/dL Normal [facility] Comment on above: Order Comment: Speci men Type: BLOOD SPECIMENOrdering Facility: [facility] Address: [address] [place] [address] Result Comment: eAG: (Estimated average glucose) is a calculated value from HgbA1c and is public utilities sales representative of the average blood glucose level in the last 2-3 month period. Performed By: #### 5 5454-3 ####[facility] LABCLIA [id number] [place] [address] [place] HbA1c (Bld) [Mass fraction] 4.4 % Normal 4.3-5.6 [facility] Comment on above: Order Comment: Speci men Type: BLOOD SPECIMENOrdering Facility: [facility] Address: [address] [place] [address] Result Comment: [place] Diabetes Association guidelines indicate that patients with HgbA1c in the range 5.7-6.4% are at increased risk for development of diabetes, and intervention by lifestyle modification may be beneficial. HgbA1c greater or equal to 6.5% is considered diagnostic of diabetes. Performed By: #### 5 5454-3 ####[facility] LABCLIA [id number] [place] [address] [place] Iron and Iron binding capaci ty panelon 08-14-2024 Iron [Mass/Vol] 58 ug/dL Normal 41-186 [facility] Comment on above: Order Comment: Speci men Type: BLOOD SPECIMENOrdering Facility: [facility] Address: [address] [place] [address] Performed By: #### 5 0190-8, 6-4 ####[facility] LABCLIA [id number] [address] Iron binding capacity [Mass/Vol] 341 ug/dL Normal 232-386 [facility] Comment on above: Order Comment: Speci men Type: BLOOD SPECIMENOrdering Facility: [facility] Address: [address] [place] [address] Performed By: #### 5 0190-8, 2275-4 ####[facility] LABCLIA [id number] [address] [facility] Iron/TIBC [Molar ratio] 17.0 % Normal 15.0-57.0 [facility] Comment on above: Order Comment: Speci men Type: BLOOD SPECIMENOrdering Facility: [facility] Address: [address] [place] [address] Performed By: #### 5 0190-8, 2275- ####[facility] LABCLIA [id number] [place] [id number] [place] TYPE AND SCREEN,30 DAYon ABO B Normal [facility] Comment on above: Order Comment: Speci men Type: BLOOD SPECIMENOrdering Facility: [facility] Address: [address] [place] [address] Performed By: #### T SCR30 ####[facility] B[facility] BANKCLIA [id number] [place] [address] [place] Rh Nom (Bld) Positive Normal [facility] Comment on above: Order Comment: Speci men Type: BLOOD SPECIMENOrdering Facility: [facility] Address: [address] [place] [address] Performed By: #### T SCR30 ####CC MAIN BLOOD BANKCLIA [id number] [place] [address] [place] CNCNPATEDon 08-05-2024 CNCNPATED Normal [facility] CNOVon 08-05-2024 CNOV Normal [facility] CNOVSPon 07-31-2024 CNOVSP Normal [facility] REFERRAL FOR ADDITIONAL BIOM ARKER AND MOLECULAR TESTINGOrdered By: Cosmo Hatch on 07-30-2024 APMOLR [facility] Comment on above: Request has been rec eived for evaluation and the results will be issued separately. [facility] REFERRAL FOR ADDITIONAL BIOM ARKER AND MOLECULAR TESTINGon 07-30-2024 REFERRAL FOR ADDITIONAL BIOMARKER AND MOLECULAR TESTING Normal [facility] Comment on above: Order Comment: Speci men Type: TISSUE SPECIMENOrdering Facility: [facility] Address: [address] [place] [address] Result Comment: Requ est has been received for evaluation and the results will be issued separately. Performed By: #### A PMOL ####[facility] MILLTOWNCLIA [id number] [place] [id number] [place] BRIEF OP NOTon 07-24-2024 BRIEF OP NOT Normal [facility] CT BIOPSY ABD/RETROPERIT MAS Son 07-24-2024 CT BIOPSY ABD/RETROPERIT MASS Normal [facility] HISTORY PHYSICALon HISTORY PHYSICAL Normal [facility] MISMATCH REPAIR PROTEINS BY IHCon 07-24-2024 AP BIOMARKER DISCLAIMER Normal [facility] Comment on above: Order Comment: Speci men Type: TISSUE SPECIMENOrdering Facility: [facility] Address: [address] [place] [address] Result Comment: Vero Sánchez Test (LDT) Disclaimer:Performance characteristics of immunohistochemical, immunofluorescent and chromogenic in-situ hybridization tests have been determined by the performing laboratory within [facility]???s [place] Pathology and Laboratory Medicine Department ([facility], [facility], [facility], [facility], [facility], [facility], or [facility]) in a manner consistent with CLIA requirements. One or more of these tests have not been cleared or approved by the FDA. RT-PLM is regulated under CLIA as qualified to perform high-complexity testing. These tests are used for clinical purposes. They should not be regarded as investigational or for research. Positive and negative controls stain appropriately. Performed By: #### L [id number] ####[facility] LABCLIA [id number] [place] [address] [place] AP BLOCK ID A1 Normal [facility] Comment on above: Order Comment: Umesh baugh Type: TISSUE SPECIMENOrdering Facility: [facility] Address: [address] [place] [address] Performed By: #### L [id number] ####[facility] LABCLIA [id number] [address] STATES [facility] BIOMARKER INTERPRETATION COMMENT AND REFERENCE RANGE Normal [facility] Comment on above: Order Comment: Umesh [facility] Type: TISSUE SPECIMENOrdering Facility: [facility] Address: [address] [place] [address]: In[address] expression of MMR [...] patients with metastatic carcinoma, Evy et al. ([facility] 2015;372:2509-20) reported that clinical benefit of pembrolizumab, an [...] questions about this result, please call the [facility] for Personalized Simphatic Healthcare at [phone]. Performed By: #### L [id number] ####[facility] LABCLIA [id number] [address] [place] [facility] BIOMARKER METHOD Normal [facility] Comment on above: Order Comment: Speci men Type: TISSUE SPECIMENOrdering Facility: [facility] Address: [address] [place] [address] Performed By: #### L [id number] ####[facility] LABCLIA [id number] [address] OF [facility] CASE NUMBER MMR [id number] [facility] Comment on above: Order Comment: Speci men Type: TISSUE SPECIMENOrdering Facility: [facility] Address: [address] [place] [address] Performed By: #### L [id number] ####[facility] LABCLIA [id number] [place] [id number] [facility] FINAL PERFORMING LAB [facility] Comment on above: Order Comment: Speci men Type: TISSUE SPECIMENOrdering Facility: [facility] Address: [address] [place] [address] Result Comment: Diag nostic interpretation performed at: [facility], [address] [place] [address] [place] [address] CLIA# [id number] Director: Marky Christian MDElectronically signed out by: Malini Lynn MD Performed By: #### L [id number] ####[facility] LABCLIA [id number] [place] [address] [place] Result Comment: Diag nostic interpretation performed at: [facility], [address] [place], [place] [id number] CLIA# [id number] Director: Marky Christian MD Performed By: #### 6 6121-5 ####[facility] LABCLIA [id number] [place] [address] [place] FIXATIVE Formalin, 10% Neutra l Buffered [facility] Comment on above: Order Comment: Speci men Type: TISSUE SPECIMENOrdering Facility: [facility] Address: [address] [place] [address] Performed By: #### L [id number] ####[facility] LABCLIA [id number] [place] [address] [place] MLH1 IMMUNOHISTOCHEMICAL RESULTS Normal/Intact Nuclear Expression [facility] Comment on above: Order Comment: Speci men Type: TISSUE SPECIMENOrdering Facility: [facility] Address: [address] [place] [address] Performed By: #### L [id number] ####[facility] LABCLIA [id number] [place] [id number] [place] MLH1 PROMOTER METHYLATION ASSAY No Normal [facility] Comment on above: Order Comment: Speci men Type: TISSUE SPECIMENOrdering Facility: [facility] Address: [address] [place] [address] Performed By: #### L [id number] ####[facility] LABCLIA [id number] [place] [id number] [place] MMR INTERPRETATION Proficient (Microsat ellite Stable) Normal [facility] Comment on above: Order Comment: Speci men Type: TISSUE SPECIMENOrdering Facility: [facility] Address: [address] [place] [address] Performed By: #### L [id number] ####[facility] LABCLIA [id number] [address] [place] [address] [place] MSH2 IMMUNOHISTOCHEMICAL RESULTS Normal/Intact Nuclear Expression Normal [facility] Comment on above: Order Comment: Speci men Type: TISSUE SPECIMENOrdering Facility: [facility] Address: [address] [place] [address] Performed By: #### L [id number] ####[facility] LABCLIA [id number] [place] [address] [place] MSH6 IMMUNOHISTOCHEMICAL RESULTS Normal/Intact Nuclear Expression Normal [facility] Comment on above: Order Comment: Speci men Type: TISSUE SPECIMENOrdering Facility: [facility] Address: [address] [place] [address] Performed By: #### L [id number] ####[facility] LABCLIA [id number] [place] [id number] [place] PMS2 IMMUNOHISTOCHEMICAL RESULTS Normal/Intact Nuclear Expression Normal [facility] Comment on above: Order Comment: Speci men Type: TISSUE SPECIMENOrdering Facility: [facility] Address: [address] [place] [address] Performed By: #### L [id number] ####[facility] LABCLIA [id number] [address], [facility] [place] TUMOR TYPE MMR Metastatic Colorecta l Adenocarcinoma Normal [facility] Comment on above: Order Comment: Speci men Type: TISSUE SPECIMENOrdering Facility: [facility] Address: [address] [place] [address] Performed By: #### L [id number] ####[facility] LABCLIA [id number] [address] [place] [address] [place] NURSING PROGon 07-24-2024 NURSING PROG Normal [facility] Pathology biopsy report Cordell (Tiss)on 07-24-2024 AP DISCLAIMER Normal [facility] Comment on above: Order Comment: Speci men Type: TISSUE SPECIMENOrdering Facility: [facility] Address: [address] [place] [address] Result Comment: Vero voss Developed Test (LDT) Disclaimer:Performance characteristics of immunohistochemical, immunofluorescent, and chromogenic in-situ hybridization tests have been determined by the performing laboratory within [facility]'s [place] [facility]ology and Laboratory Medicine Department ([facility], [facility], [facility], [facility], [facility], [facility], or [facility]) in a manner consistent with CLIA requirements. One or more of these tests may not have been cleared or approved by the FDA. RT-PLM is regulated under CLIA as qualified to perform high-complexity testing. These tests are used for clinical purposes. These should not be regarded as investigational or for research. Positive and negative controls stain appropriately. Performed By: #### 6 6121-5 ####[facility] LABCLIA [id number] [place] [address] [place] CASE REPORT Normal [facility] Comment on above: Order Comment: Speci men Type: TISSUE SPECIMENOrdering Facility: [facility] Address: [address] [place] [address] Result Comment: Surg [facility] Pathology Report Case: [id number] Provider: Paola Osorio MD Collected: 07/24/2024 09:56 AMOrdering Location: [facility] INTERVENTIONAL Received: 07/24/2024 10:11 AM RADIOLOGYPathologist: Marybeth Montemayor MDSpecimen: Soft Tissue, Mass, Biopsy Performed By: #### 6 6121-5 ####[facility] LABCLIA [id number] [place] [address] [place] CLINICAL HISTORY Normal [facility] Comment on above: Order Comment: Speci men Type: TISSUE SPECIMENOrdering Facility: [facility] Address: [address] [place] [address] Result Comment: Pre- op diagnosis:Other intra-abdominal and pelvic swelling, mass and lump [R19.09] Performed By: #### 6 6121-5 ####[facility] LABCLIA [id number] [place] [id number] [facility] OF [place] DIAGNOSIS COMMENT The history of right colon adenocarcinoma is noted. The carcinoma in the current sample shows similar morphology to the prior colon adenocarcinoma ([id number]), supporting the diagnosis of metastatic adenocarcinoma of colonic origin. [facility] Comment on above: Order Comment: Speci men Type: TISSUE SPECIMENOrdering Facility: [facility] Address: [address] [place] [address] Performed By: #### 6 6121-5 ####[facility] COMPANYIA [id number] [address] FINAL DIAGNOSIS [facility] Comment on above: Order Comment: Speci men Type: TISSUE SPECIMENOrdering Facility: [facility] Address: [address] [place] [address] Result Comment: A. S oft tissue, right lower quadrant mass, biopsy:- Adenocarcinoma, clinically metastatic. See comment. at 1446 EDT Performed By: #### 6 6121-5 ####[facility] LABIA [id number] [address] [place] GROSS DESCRIPTION Normal [facility] Comment on above: Order Comment: Speci men Type: TISSUE SPECIMENOrdering Facility: [facility] Address: [address] [place] [address] Result Comment: A. S oft Tissue, Mass, BiopsyReceived in formalin are multiple pieces of dominguez-pink, soft tissue aggregating to 1.5 x 0.4 x 0.1 cm. Totally submitted in one cassette.Gross examination performed at [facility], [address] [place], [place] [address] July 24, 2024 3:19 PM Performed By: #### 6 6121-5 ####[facility] LABCLIA [id number] [facility] [id number] [place] [address] [place] TARGETED ONCOLOGY PANEL NEXT GENERATION SEQUENCING OTHERon 07-24-2024 TARGETED ONCOLOGY PANEL NEXT GENERATION SEQUENCING OTHER Normal [facility] Comment on above: Order Comment: Speci men Type: TISSUE SPECIMENOrdering Facility: [facility] Address: [address] [place] [address] Result Comment: [facility] Targeted Oncology PanelLaboratory Accession Number: [id number] #: [id number] #: [id number] Type: FFPET% Tumor: 70CASE SUMMARY:No clinically significant [...] weresubjected to separate targeted amplification reactions, using [employer] primers designed by [employer] ([employer], [place], [place]). Hotspots and selected fusions in generegions listed below were sequenced using Illumina ([place], [place])2x150 paired-end cycle chemistry. A customized bioinformaticsanalytical platform was used for read alignment (Genome XafxqYDBc58/hg19), variant identification and annotation. Single nucleotidevariants (SNVs), [...] NM_000044 6, 8BRAF NM_004333 11, 15CDK4 NM_000075 6REVQN1 NM_001904 3, 7-8DDR2 NM_006182 5EGFR NM_005228 3, 7, 12, 15, 18-00DIDR6 NM_004448 8, 17-07JVWM9 NM_001982 2-3, 6, 8-9ERBB4 NM_005235 18ESR1 NM_000125 8FGFR1 NM_023110 12-14, 16-69ZPRS0 NM_000141 7-9, 12, 59EYPR4 NM_000142 7, 9, 14, 30FAI22 NM_002067 4, 5GNAQ NM_002072 4, 5GNAS NM_080425 8H3-3A NM_002107 2H3-3B NM_005324 2HRAS NM_005343 2,3IDH1 NM_005896 4IDH2 NM_002168 4JAK1 NM_002227 14-16JAK2 NM_004972 14JAK3 NM_000215 11-12, 15KIT NM_000222 8-11, 13, 17KRAS NM_033360 2-1ELZ8W9 NM_002755 2-3, 9POO9H3 NM_030662 2MET NM_000245 14, 16, 19MTOR NM_004958 30, 39-40, 43, 47, 53NRAS NM_002524 2-4PDGFRA NM_006206 12, 14, 34PUL7JH NM_006218 2, 5-6, 8, 10, 14, 19, 21RAF1 NM_002880 7, 12RET NM_020975 11, 13, 15-16ROS1 NM_002944 36, 38SMO NM_005631 4, 6, 8-9TERT NM_198253 AllbcpepOJ07 NM_000546 5, 7, 8*Only hotspots within designated exons are covered, full exons are notsequenced.Genes reported for copy number gains: ALK, AR BRAF, CCND1, CDK4, CDK6,EGFR, ERBB2, FGFR1, FGFR2, FGFR3, FGFR4, KIT, KRAS, MET, MYC, MYCN,PDGFRA, UXC4VCFbvmqvf detected in RNA:Gene Detected FusionsABL1 EML1::TSZ0HZN6 MAGI3::GSS0NTM A2M::ALK, ACTG2::ALK, ALK::PTPN3, ATIC::ALK, X5bdi62::ALK, CARS::ALK, CLIP4::ALK, CLTC::ALK, DCTN1::ALK, EML4::ALK, HOX5KNV7::ALK, HIP1::ALK, KIF5B::ALK, KLC1::ALK, MEMO1::ALK, NCOA1::ALK, TFRGF0G::ALK, RANBBP2::ALK, ADS99Z1_IMH41K::ALK, SMEK2::ALK, STRN::ALK, TFG::ALK, TPM1::ALK, TPM3::ALK, TPM4::ALK, TPR::ALK, TRAF1::ALK, VCL::ALKAXL ROMERO::MBIPBRAF AGTRAP:BRAF, AKAP9::BRAF, CDC27::BRAF, KYU828O::BRAF, FCHSD1::BRAF, UDMS0000::BRAF, PAPSS1::BRAF, MVJ65V6::BRAF, SND1::BRAF, UXI5SD8::BRAF, TRIM24::BRAFEGFR EGFR vIII transcriptERBB2 WIPF2::MDXE7FST YSW46B7:ERG, TMPRSS2:ERGFGFR1 BAG4::FGFR1, ERLIN2::FGFR1, FGFR1::JFZL8MUQX0 FGFR2::AFF3, FGFR2::BICC1, FGFR2::CASP7, FGFR2::CIT, FGFR2::XNXO2259_RZDB3, FGFR2::MGEA5, FGFR2::OFD1, FGFR2::TACC1, DJQ39M7::SJBA0PAPM7 FGFR3::AES, FGFR3::CJCLF5A1, FGFR3::ELAVL3, FGFR3::QJRP0APM MET Exon 14 Skipping, AAICY1A4::MET, S7exb37::MET, CAPZA2::MET, OXR1::MET, TFG::MET, TPR::MET, PTPRZ1::METNTRK1 BCAN::NTRK1, CD74::NTRK1, REX::NTRK1, SJE5KW4::NTRK1, LMNA::NTRK1, MPRIP::NTRK1, NFASC::NTRK1, NTRK1::MGFK0E1, JPV150::NTRK1, SQSTM1::NTRK1, SSBP2::NTRK1, TFG::NTRK1, TPM3::NTRK1, TPR::UFGQ0BSPS9 AFAP1::NTRK2, AGBL4::NTRK2, NACC2::NTRK2, QKI::NTRK2, SQSTM1::NTRK2, TRIM24::NTRK2, VCL::OGSC7TVAG0 BTBD1::NTRK3, COX5A::NTRK3, ETV6::SIOZ0MQIEWZ SCAF11::PDGFRAPPARG PAX8::PPARGRAF1 H8JDWU5::RAF1, ESRP1::SMJ2IIOU Y02npt04::RELARET ACBD5::RET, AFAP1::RET, AKAP13::RET, CCDC6::RET, CUX1::RET, ERC1::RET, FKBP15::RET, GOLGA5::RET, HOOK3::RET, ROWF3543::RET, KIF5B::RET, KTN1::RET, NCOA4::RET, PCM1::RET, GXIJF0Y::RET, RUFY2::RET, HRTGX9K::RET, GAQ1PT1::RET, TRIM24::RET, TRIM27::RET, TRIM33::RETROS1 CCDC6:ROS1, CD74::ROS1, CEP85L::ROS1, CLIP1::ROS1, CLTC::ROS1, ERC1::ROS1, EZR::ROS1, GOPC::ROS1, HLA_A::ROS1, KDELR2::ROS1, XJMH1143::ROS1, LRIG3::ROS1, MSN::ROS1, MYO5A::ROS1, PPFIBP1::ROS1, PWWP2A::ROS1, SDC4::ROS1, IWW51O2::ROS1, TFG::ROS1, TPM3::ROS1, ZCCHC8::GPD6XQJVMS3 TMPRSS2::ERG, TMPRSS2::ETV1, TMPRSS2::ETV4, TMPRSS2::YNZ8TJSBEQFYPG:1) Calderon MM, et al. Standards and Guidelines for the Interpretation andReporting of Sequence Variants in Cancer: A Joint ConsensusRecommendation of the Association for Molecular Pathology, [facility] Children's Hospitalety of Clinical Oncology, and College of [place] Pathologists. JMol Diagn. 2017 Mar;19(1):4-23. doi: 10.1016/j.jmoldx.2016.10.002.PMID: 58360276; PMCID: CGI3993308.2) aMt Fajardo, Lazaro SA, Leo AM. Recurrent gene fusions inprostate cancer. Chelsy Rev Cancer. 2008 Sep;8(7):497-511. doi:10.1038/wjy3445. Epub 2007Sep 12. PMID: 82534046; PMCID: TKI6138787.3) Brant SC, Fady GILL. The genomic landscape of prostate cancer.Front Endocrinol ([facility] 2011August 09;3:69. doi:10.3389/fendo.2012.29483. PMID: 37821136; QWL8525332.4) Dwaine C, et al. Breast Cancer Genomics: Primary and Most CommonMetastases. Cancers ([place]). 2021Sep 14;14(13):3046. doi:10.3390/cefyhgf95846233. PMID: 05469169; PMCID: RYZ9874281.5) Venice R, Urbano SU, CJ. [employer] Clerk Oncogenes but Not as We KnowThem: Targetable Fusion Genes in Breast Cancer. Cancer Discov. 2018May;8(3):272-275. doi: 10.0900/9277-3384.CD-18-0091. PMID: 76509081;PMCID: CSI1338641.6) Gera A, Pamela J, Po JW, Serafin N, Chidi T, Garett CS. The GenomicLandscape of Thyroid Cancer Tumourigenesis and Implications forImmunotherapy. Cells. 2020July 25;10(5):1082. doi:10.3390/inbtk61309240. PMID: 05147795; PMCID: OSJ8728746.7) Latesha GALARZA, et al. Molecular Biomarkers for the Evaluation ofColorectal Cancer: Guideline From the [place] Society for ClinicalPathology, College of [place] Pathologists, Association for MolecularPathology, and the [place] Society of Clinical Oncology. J ClinOncol. 2017 July 25;35(13):1320-5602. doi: 10.1200/JCO.2016.71.9807.Epub 2016May 02. PMID: 70124711.8) Margarita ROJAS, et al. Updated Molecular Testing Guideline for theSelection of Lung Cancer Patients for Treatment With Targeted TyrosineKinase Inhibitors: Guideline From the College of AmericanPathologists, the International Association for the Study of LungCancer, and the Association for Molecular Pathology. Arch Pathol LabMed. 2018 May;142(3):321-346. doi: 10.5858/arpa.1674-2194-IW. Bdyc8981 Apr 17. PMID: 13102104.9) Cancer Genome [place] Research Network. Comprehensive genomiccharacterization defines human glioblastoma genes and core pathways.Nature. 2007Jan 16;455(5618):1061-8. doi: 10.1038/wncpvt25680. Flan2109 Nov 28. Erratum in: Nature. 2012May 24;494(2396):506. PMID:62364143; PMCID: UFU8860749.10) Linda MY, Alina M. Glioblastoma Genomics: A Very ComplicatedStory. In: Mtz S, rewrite editor. Glioblastoma [Internet].Maria Isabel (DONALDO): [employer]; 2016Dec 21. Chapter 1. PMID:17836930.11) June S, Vivienne N, Sherrie H. Melanoma genomics: a prxkz-ui-uib-artreview of practical clinical applications. Br J Dermatol. ;185(2):272-281. doi: 10.1111/bjd.70622. Epub 2020Aug 30. PMID:08499939.12) Dominguez Toro LM. An update on molecular genetics ofgastrointestinal stromal tumours. J Clin Pathol. ;59(6):557-63. doi: 10.1136/jcp.2004.432111. PMID: 60350358; PMCID:SFU3913739.13) Jon ER, Dulce M, Jordan DODSONB, Belkis TL, Maryjane LL. Molecularprofiling for precision cancer therapies. Genome Med. 2019;12(1):8. doi: 10.1186/r08125-855-5587-0. PMID: 14864892; PMCID:QBT8693369.14) John Martinez et al. Somatic Genomic Testing in Patients WithMetastatic or Advanced Cancer: ASCO Provisional Clinical Opinion. JClin Oncol. 2021Jul 04;40(11):0259-7888. doi: 10.1200/JCO.21.50491.Epub 2021May 13. Erratum in: J Clin Oncol. 2021Sep 13;40(18):2068.PMID: 20951891.15) John Martinez et al. OncoKB: OncoKB: A Precision OncologyKnowledge Base. JCO Precis Oncol. 2016;2017:PO.17.43715. doi:10.1200/PO.17.62916. Epub 2016August 09. PMID: 89077086; PMCID:YAN5583441.DISCLAIMER:This test was developed and its performance characteristics determinedby [facility]'s Pathology and Laboratory Medicine Department. Ithas not been cleared or approved by the FDA. [facility] is regulated under CLIAas certified to perform high-complexity testing. This test is used forclinical purposes. It should not be regarded as investigational or forresearch.Test performed at [facility], [address] [place] [address], [id number]. CLIA Number: [id number] performed by Marybeth Montemayor MD, PhD Performed By: #### T OPTO ####[facility] ILLUMINA LIMSCLIA [id number] [facility] [id number] [address] [place] CBC W Auto Differential pane l (Bld)on 07-19-2024 Basophils (Bld) [#/Vol] 0.07 10*3/uL Normal <0.11 [facility] Comment on above: Order Comment: Speci men Type: BLOOD SPECIMENOrdering Facility: [facility] Address: [address] [place] [address] Performed By: #### 5 7021-8 ####[facility] [id number] [place] [address] [place] Basophils/100 WBC (Bld) 1.2 % Normal [facility] Comment on above: Order Comment: Speci men Type: BLOOD SPECIMENOrdering Facility: [facility] Address: [address] [place] [address] Performed By: #### 5 7021-8 ####[facility] [id number] [place] [address] [place] Differential cell count method Nom (Bld) Auto Normal [facility] Comment on above: Order Comment: Speci men Type: BLOOD SPECIMENOrdering Facility: [facility] Address: [address] [place] [address] Performed By: #### 5 7021-8 ####[facility] [id number] [place] [address] [place] Eosinophils (Bld) [#/Vol] 0.51 10*3/uL High <0.46 [facility] Comment on above: Order Comment: Speci men Type: BLOOD SPECIMENOrdering Facility: [facility] Address: [address] [place] [address] Performed By: #### 5 7021-8 ####[facility] MILL[facility]OY[facility]CL[facility] [id number] [place] [address] [place] Eosinophils/100 WBC (Bld) 8.5 % Normal [facility] Comment on above: Order Comment: Speci men Type: BLOOD SPECIMENOrdering Facility: [facility] Address: [address] [place] [address] Performed By: #### 5 7021-8 ####[facility] [id number] [place] [address] [place] Erythrocyte distribution width (RBC) [Ratio] 16.3 % High 11.5-15.0 [facility] Comment on above: Order Comment: Speci men Type: BLOOD SPECIMENOrdering Facility: [facility] Address: [address] [place] [address] Performed By: #### 5 7021-8 ####[facility] HOSPITALNCLetha [id number] [place] [address] [place] Hematocrit (Bld) [Volume fraction] 29.6 % Low 36.0-46.0 [facility] Comment on above: Order Comment: Speci men Type: BLOOD SPECIMENOrdering Facility: [facility] Address: [address] [place] [address] Performed By: #### 5 7021-8 ####[facility] HOSPITALKALIELILetha [id number] [place] [address] [place] Hemoglobin (Bld) [Mass/Vol] 9.8 g/dL Low 11.5-15.5 [facility] Comment on above: Order Comment: Speci men Type: BLOOD SPECIMENOrdering Facility: [facility] Address: [address] [place] [address] Performed By: #### 5 7021-8 ####[facility] HOSPITALNCLIA [id number] [place] [address] [place] Immature granulocytes (Bld) [#/Vol] 10*3/uL Normal <0.10 [facility] Comment on above: Order Comment: Speci men Type: BLOOD SPECIMENOrdering Facility: [facility] Address: [address] [place] [address] Performed By: #### 5 7021-8 ####[facility] [id number] [place] [address] [place] Immature granulocytes/100 WBC (Bld) 0.3 % Normal [facility] Comment on above: Order Comment: Speci men Type: BLOOD SPECIMENOrdering Facility: [facility] Address: [address] [place] [address] Performed By: #### 5 7021-8 ####[facility] [id number] [place] [address] [place] Lymphocytes (Bld) [#/Vol] 0.93 10*3/uL Low 1.00-4.00 [facility] Comment on above: Order Comment: Speci men Type: BLOOD SPECIMENOrdering Facility: [facility] Address: [address] [place] [address] Performed By: #### 5 7021-8 ####[facility] [id number] [place] [address] [place] Lymphocytes/100 WBC (Bld) 15.6 % Normal [facility] Comment on above: Order Comment: Speci men Type: BLOOD SPECIMENOrdering Facility: [facility] Address: [address] [place] [address] Performed By: #### 5 7021-8 ####[facility] [id number] [place] [address] [place] MCH (RBC) [Entitic mass] 34.6 pg High 26.0-34.0 [facility] Comment on above: Order Comment: Speci men Type: BLOOD SPECIMENOrdering Facility: [facility] Address: [address] [place] [address] Performed By: #### 5 7021-8 ####[facility] BISHNUWNCLIA [id number] [place] [address] [place] MCHC (RBC) [Mass/Vol] 33.1 g/dL Normal 30.5-36.0 [facility] Comment on above: Order Comment: Speci men Type: BLOOD SPECIMENOrdering Facility: [facility] Address: [address] [place] [address] Performed By: #### 5 7021-8 ####[facility] HOSPITALNCLIA [id number] [place] [address] [place] MCV (RBC) [Entitic vol] 104.6 fL High 80.0-100.0 [facility] Comment on above: Order Comment: Speci men Type: BLOOD SPECIMENOrdering Facility: [facility] Address: [address] [place] [address] Performed By: #### 5 7021-8 ####[facility] HOSPITALNCLIA [id number] [place] [address] [place] Monocytes (Bld) [#/Vol] 0.76 10*3/uL Normal <0.87 [facility] Comment on above: Order Comment: Speci men Type: BLOOD SPECIMENOrdering Facility: [facility] Address: [address] [place] [address] Performed By: #### 5 7021-8 ####[facility] HOS[facility]ITALNCLIA [id number] [place] [address] [place] Monocytes/100 WBC (Bld) 12.7 % Normal [facility] Comment on above: Order Comment: Speci men Type: BLOOD SPECIMENOrdering Facility: [facility] Address: [address] [place] [address] Performed By: #### 5 7021-8 ####[facility] HOSPITALNCLI [id number] [place] [address] [place] Neutrophils (Bld) [#/Vol] 3.69 10*3/uL Normal 1.45-7.50 [facility] Comment on above: Order Comment: Speci men Type: BLOOD SPECIMENOrdering Facility: [facility] Address: [address] [place] [address] Performed By: #### 5 7021-8 ####[facility] DAYTONLIA [id number] [place] [address] [place] Neutrophils/100 WBC (Bld) 61.7 % Normal [facility] Comment on above: Order Comment: Speci men Type: BLOOD SPECIMENOrdering Facility: [facility] Address: [address] [place] [address] Performed By: #### 5 7021-8 ####[facility] [id number] [place] [address] [place] Nucleated RBC (Bld) [#/Vol] 10*3/uL Normal <0.01 [facility] Comment on above: Order Comment: Speci men Type: BLOOD SPECIMENOrdering Facility: [facility] Address: [address] [place] [address] Performed By: #### 5 7021-8 ####[facility] [id number] [place] [address] [place] Nucleated RBC/100 WBC (Bld) [Ratio] 0.0 /100 WBC Normal [facility] Comment on above: Order Comment: Speci men Type: BLOOD SPECIMENOrdering Facility: [facility] Address: [address] [place] [address] Performed By: #### 5 7021-8 ####[facility] H[facility]ITALNCLIA [id number] [place] [address] [place] Platelet mean volume (Bld) [Entitic vol] 8.5 fL Low 9.0-12.7 [facility] Comment on above: Order Comment: Speci men Type: BLOOD SPECIMENOrdering Facility: [facility] Address: [address] [place] [address] Performed By: #### 5 7021-8 ####[facility] LALYWNCLIA [id number] [place] [address] [place] Platelets (Bld) [#/Vol] 187 10*3/uL Normal 150-400 [facility] Comment on above: Order Comment: Speci men Type: BLOOD SPECIMENOrdering Facility: [facility] Address: [address] [place] [address] Performed By: #### 5 7021-8 ####[facility] H[facility]ITALNCLIA [id number] [place] [address] [place] RBC (Bld) [#/Vol] 2.83 10*6/uL Low 3.90-5.20 [facility] Comment on above: Order Comment: Speci men Type: BLOOD SPECIMENOrdering Facility: [facility] Address: [address] [place] [address] Performed By: #### 5 7021-8 ####[facility] H[facility]ITALNCLIA [id number] [place] [address] [place] WBC (Bld) [#/Vol] 5.98 10*3/uL Normal 3.70-11.00 [facility] Comment on above: Order Comment: Speci men Type: BLOOD SPECIMENOrdering Facility: [facility] Address: [address] [place] [address] Performed By: #### 5 7021-8 ####[facility]ITALNCLIA [id number] [place] [address] [place] CNOVSPon 07-19-2024 CNOVSP Normal [facility] metabolic 2000 panelon 07-19-2024 Albumin [Mass/Vol] 4.1 g/dL Normal 3.9-4.9 [facility] Comment on above: Order Comment: Speci men Type: BLOOD SPECIMENOrdering Facility: [facility] Address: [address] [place] [address] Performed By: #### 2 4323-8 ####[facility] BISHNUWNCLIA [id number] [place] [address] [place] ALP [Catalytic activity/Vol] 65 U/L Normal 34-123 [facility] Comment on above: Order Comment: Speci men Type: BLOOD SPECIMENOrdering Facility: [facility] Address: [address] [place] [address] Performed By: #### 2 4323-8 ####[facility] H[facility]ITALWNCLIA [id number] [place] [address] [place] ALT [Catalytic activity/Vol] 7 U/L Normal 7-38 [facility] Comment on above: Order Comment: Speci men Type: BLOOD SPECIMENOrdering Facility: [facility] Address: [address] [place] [address] Performed By: #### 2 4323-8 ####[facility] DAYTONLIA [id number] [place] [address] [place] Anion gap [Moles/Vol] 8 mmol/L Normal 8-15 [facility] Comment on above: Order Comment: Speci men Type: BLOOD SPECIMENOrdering Facility: [facility] Address: [address] [place] [address] Performed By: #### 2 4323-8 ####[facility] MILLTOWNCLIA [id number] [place] [address] [place] AST [Catalytic activity/Vol] 15 U/L Normal 13-35 [facility] Comment on above: Order Comment: Speci men Type: BLOOD SPECIMENOrdering Facility: [facility] Address: [address] [place] [address] Performed By: #### 2 4323-8 ####[facility] MILLTOWNCLIA [id number] [place] [address] [place] Bilirubin [Mass/Vol] 0.2 mg/dL Normal 0.2-1.3 [facility] Comment on above: Order Comment: Speci men Type: BLOOD SPECIMENOrdering Facility: [facility] Address: [address] [place] [address] Performed By: #### 2 4323-8 ####[facility] MILLTOWNCLIA [id number] [place] [address] [place] Calcium [Mass/Vol] 9.1 mg/dL Normal 8.5-10.2 [facility] Comment on above: Order Comment: Speci men Type: BLOOD SPECIMENOrdering Facility: [facility] Address: [address] [place] [address] Performed By: #### 2 4323-8 ####[facility] HOSPITALNCLIA [id number] [place] [address] [place] Chloride [Moles/Vol] 105 mmol/L Normal 98-107 [facility] Comment on above: Order Comment: Speci men Type: BLOOD SPECIMENOrdering Facility: [facility] Address: [address] [place] [address] Performed By: #### 2 4323-8 ####[facility] MILLWNCLIA [id number] [place] [address] [place] CO2 [Moles/Vol] 25 mmol/L Normal 22-30 [facility] Comment on above: Order Comment: Speci men Type: BLOOD SPECIMENOrdering Facility: [facility] Address: [address] [place] [address] Performed By: #### 2 4323-8 ####[facility]PITALNCLIA [id number] [place] [address] [place] Creatinine [Mass/Vol] 0.77 mg/dL Normal 0.58-0.96 [facility] Comment on above: Order Comment: Umesh baugh Type: BLOOD SPECIMENOrdering Facility: [facility] Address: [address] [place] [address] Performed By: #### 2 4323-8 ####[facility] [id number] [place] [address] [place] Creatinine and Glomerular filtration rate.predicted panel (S/P/Bld) 86 mL/min/1.73m??? Normal >=60 [facility] Comment on above: Order Comment: Umesh baugh Type: BLOOD SPECIMENOrdering Facility: [facility] Address: [address] [place] [address] Result Comment: Sana mated Glomerular Filtration Rate [...] actual GFR. Performed By: #### 2 4323-8 ####[facility] [id number] [place] [address] [place] Glucose [Mass/Vol] 117 mg/dL High 74-99 [facility] Comment on above: Order Comment: Umesh baugh Type: BLOOD SPECIMENOrdering Facility: [facility] Address: [address] [place] [address] Result Comment: The [place] [employer] (ADA) provides guidance for cutoff [...] Standards of Medical Care in Diabetes 2016, [place] [employer]. Diabetes Care. 2016.39(Suppl 1). Performed By: #### 2 4323-8 ####[facility] GOETZMATTHEW [id number] [place] [address] [place] Potassium [Moles/Vol] 3.8 mmol/L Normal 3.7-5.1 [facility] Comment on above: Order Comment: Speci men Type: BLOOD SPECIMENOrdering Facility: [facility] Address: [address] [place], [place] [address] Performed By: #### 2 4323-8 ####[facility] HOSPITALFUAD [id number] [place] [address] [place] Protein [Mass/Vol] 6.6 g/dL Normal 6.3-8.0 [facility] Comment on above: Order Comment: Speci men Type: BLOOD SPECIMENOrdering Facility: [facility] Address: [address] [place] [address] Performed By: #### 2 4323-8 ####[facility] HOSPITALFUAD [id number] [place] [address] [place] Sodium [Moles/Vol] 138 mmol/L Normal 136-144 [facility] Comment on above: Order Comment: Speci men Type: BLOOD SPECIMENOrdering Facility: [facility] Address: [address] [place] [address] Performed By: #### 2 4323-8 ####[facility] HOSPITALKALIELIA [id number] [place] [address] [place] Urea nitrogen [Mass/Vol] 16 mg/dL Normal 7-21 [facility] Comment on above: Order Comment: Speci men Type: BLOOD SPECIMENOrdering Facility: [facility] Address: [address] [place] [address] Performed By: #### 2 4323-8 ####[facility] LARANCLIA [id number] [place] [address] [place] PT panel Coag (PPP)on 2024 INR Coag (PPP) [Relative time] 0.9 {INR} Normal 0.9-1.3 [facility] Comment on above: Order Comment: Speck[place] baugh Type: BLOOD SPECIMENOrdering Facility: [facility] Address: [address] [place] [address] Result Comment: Edwige min K Antagonist (VKA) Therapeutic Range: INR 2 to 3 (Target INR of 2.5)Note: For patients treated with VKA drugs, such as warfarin, the [place] [employer] 2012 Guideline recommends [...] of 3).Summer GH, et al. Chest 2012, 141:7S-47SJermain BRIGGS, et al. [facility] 2017, 70: 252-289 Performed By: #### 3 4528-0 ####[facility] LALYWKALIELIA [id number] [place] [address] [place] PT Coag (PPP) [Time] 9.8 s Normal <13.1 [facility] Comment on above: Order Comment: Umesh baugh Type: BLOOD SPECIMENOrdering Facility: [facility] Address: [address] [place] [address] Performed By: #### 3 4528-0 ####[facility] MARCONCLIA [id number] [address] [place] CNPNon 07-18-2024 CNPN Normal [facility] Absolute lymphocyte countOrd ered By: Milagro Stepan on 07-11-2024 Lymphocytes Auto (Unsp spec) [#/Vol] 1.77 10*3/uL 0.83-4.51 [facility] Absolute neutrophil countOrd ered By: Remus Ungromeo on 07-11-2024 Neutrophils (Bld) [#/Vol] 8.9 10*3/uL High 2.0-7.7 [facility] Anion gap in Serum or Plasma Ordered By: Remus Stepan on 07-11-2024 Anion gap [Moles/Vol] 15 mmol/L 5-15 [facility] Automated lymphocyte count a s percentage of total leukocytesOrdered By: Milagro Ying on 07-11-2024 Lymphocytes/100 WBC Auto (Unsp spec) 15.4 % Low 19-41 [facility] BUN/creatinine ratioOrdered By: Milagro Ying on 07-11-2024 Urea nitrogen/Creatinine [Mass ratio] 25.9 mg/mg High 10-20 [facility] Basophil percentageOrdered B y: Rem Stepan on 07-11-2024 Basophils/100 WBC (Bld) 0.3 % 0-1 [facility] Bilirubin Test strip Ql (U)O rdered By: Milagro Ying on 07-11-2024 Bilirubin Ql (U) Negative Negative [facility] Bilirubin, totalOrdered By: Milagro Ying on 07-11-2024 Bilirubin [Mass/Vol] 0.55 mg/dL 0.00-1.30 [facility] CBC W/Diff, Automatedon 06-25 Absolute Lymph 1.77 X10 3/uL Normal 0.83-4.51 [facility] Comment on above: Performed By: #### L 100.0100, L501.2450, L500.4050 ####[facility] [address] [place], [place], [id number] Absolute Neut 8.9 X10 3/uL High 2.0-7.7 [facility] Comment on above: Performed By: #### L 100.0100, L501.2450, L500.4050 ####[facility] [address] [place], [address] Basophils/100 WBC (Bld) 0.3 % Normal 0-1 [facility] Comment on above: Performed By: #### L 100.0100, L501.2450, L500.4050 ####[facility] [address] [place], [address] Eosinophils/100 WBC (Bld) 0.0 % Normal 0-5 [facility] Comment on above: Performed By: #### L 100.0100, L501.2450, L500.4050 ####[facility] [address] [place], [address] Erythrocyte distribution width (RBC) [Ratio] 16.2 % High 11.6-14.6 [facility] Comment on above: Performed By: #### L 100.0100, L501.2450, L500.4050 ####[facility] [address] [place], [address] Hematocrit (Bld) [Volume fraction] 31.4 % Low 37-47 [facility] Comment on above: Performed By: #### L 100.0100, L501.2450, L500.4050 ####[facility] [address] [place], [address] Hemoglobin (Bld) [Mass/Vol] 11.1 g/dL Low 12.0-15.0 [facility] Comment on above: Performed By: #### L 100.0100, L501.2450, L500.4050 ####[facility] [address] [place], [address] IG% 0.900 Normal 0.0-0.9 [facility] Comment on above: Result Comment: IG% - Immature Granulocytes (promyelocytes, myelocytes andmetamyelocytes) > 1% indicates that a LEFT SHIFT is Present. Performed By: #### L 100.0100, L501.2450, L500.4050 ####[facility] [address] [place], [address] Lymphocytes/100 WBC (Bld) 15.4 % Low 19-41 [facility] Comment on above: Performed By: #### L 100.0100, L501.2450, L500.4050 ####[facility] [address] [place], [address] MCH (RBC) [Entitic mass] 35.1 pg High 27.0-32.0 [facility] Comment on above: Performed By: #### L 100.0100, L501.2450, L500.4050 ####[facility] [address] [place], [address] MCHC (RBC) [Mass/Vol] 35.4 g/dL Normal 32-36 [facility] Comment on above: Performed By: #### L 100.0100, L501.2450, L500.4050 ####[facility] [address] [place], [address] MCV (RBC) [Entitic vol] 99.4 fL High 81-99 [facility] Comment on above: Performed By: #### L 100.0100, L501.2450, L500.4050 ####[facility] [address] [place], [address] Monocytes/100 WBC (Bld) 6.6 % Normal 0-10 [facility] Comment on above: Performed By: #### L 100.0100, L501.2450, L500.4050 ####[facility] [address] [place], [address] Neutrophils/100 WBC (Bld) 76.8 % High 47-70 [facility] Comment on above: Performed By: #### L 100.0100, L501.2450, L500.4050 ####[facility] [address] [place], [address] Nucleated RBC (Bld) [#/Vol] 0 10*3/uL Normal 0-5 [facility] Comment on above: Performed By: #### L 100.0100, L501.2450, L500.4050 ####[facility] [address] [place], [address] Platelet mean volume (Bld) [Entitic vol] 9.1 fL Normal 6.2-12.0 [facility] Comment on above: Performed By: #### L 100.0100, L501.2450, L500.4050 ####[facility] [address] [place], [address] Platelets (Bld) [#/Vol] 309 10*3/uL Normal 150-450 [facility] Comment on above: Performed By: #### L 100.0100, L501.2450, L500.4050 ####[facility] [address] [place], [address] RBC (Bld) [#/Vol] 3.16 10*6/uL Low 4.2-5.4 [facility] Comment on above: Performed By: #### L 100.0100, L501.2450, L500.4050 ####[facility] [address] [place], [address] RDW SD 60.1 fl High 35.1-43.9 [facility] Comment on above: Performed By: #### L 100.0100, L501.2450, L500.4050 ####[facility] [address] [place], [address] WBC (Bld) [#/Vol] 11.5 10*3/uL High 4.4-11.0 [facility] Comment on above: Performed By: #### L 100.0100, L501.2450, L500.4050 ####[facility] [address] [place], [address] CNPNon 07-11-2024 CNPN Normal [facility] CT ABD/PEL W IVCONon 025 CT ABD/PEL W IVCON Normal [facility] CT Abdomen and Pelvis W cont rast Hardeep 07-11-2024 IMPRESSION: 1. New and enlarging necrotic lesions in the right lower quadrant, likely worsening metastasis. No ascites. 2. No new hepatic lesion or lymphadenopathy. Tmd Teacher Assistant: PSCB Transcribe Date/Time: Jul 11 2024 2:41P Dictated by : MALLY MORRISON MD This examination was interpreted and the report reviewed and electronically signed by: MALLY MORRISON MD on Jul 11 2024 3:00PM [facility] DIVISION OF RADIOLOGY * * *Final Report* * * DATE OF EXAM: Jul 11 2024 2:32PM [facility] 0530 - CT ABD/PEL W IVCON / [...] No additional findings. DIVISION OF RADIOLOGY Provider, [facility] - 07/11/2024 * * *Final Report* * * DATE OF EXAM: Jul 11 2024 2:32PM [facility] 0530 - CT ABD/PEL W IVCON / [...] 2. No new hepatic lesion or lymphadenopathy. Tmd Teacher Assistant: [facility] Transcribe Date/Time: Jul 11 2024 2:41P Dictated by : MALLY MORRISON MD This examination was interpreted and the report reviewed and electronically signed by: MALLY MORRISON MD on Jul 11 2024 3:00PM EST [facility] Radiology Study observation (narrative) [facility] CT Abdomen and Pelvis W cont rast IVOrdered By: Ccf Provider on 07-11-2024 [facility] Carbon dioxide, total [Moles /volume] in Central venous bloodOrdered By: Milagro Ying on 07-11-2024 CO2 [Moles/Vol] 23.1 mmol/L 21.0-32.0 [facility] Chloride assayOrdered By: Ronda Ying on 07-11-2024 Chloride [Moles/Vol] 99 mmol/L 98-108 [facility] Comprehensive Metabolic Prof ilon 07-11-2024 Albumin [Mass/Vol] 4.6 g/dL Normal 3.4-4.8 [facility] Comment on above: Performed By: #### L 100.0100, L501.2450, L500.4050 ####[facility] [address] [place], [address] Albumin/Globulin [Mass ratio] 1.6 {ratio} Normal 0.9-2.4 [facility] Comment on above: Performed By: #### L 100.0100, L501.2450, L500.4050 ####[facility] [address] [place], [address] ALK PHOS 56 U/L Normal 35-104 [facility] Comment on above: Performed By: #### L 100.0100, L501.2450, L500.4050 ####[facility] [address] [place], [address] ALT [Catalytic activity/Vol] 10 U/L Normal <=34 [facility] Comment on above: Performed By: #### L 100.0100, L501.2450, L500.4050 ####[facility] [address] [place], [address] AST [Catalytic activity/Vol] 23 U/L Normal <=31 [facility] Comment on above: Performed By: #### L 100.0100, L501.2450, L500.4050 ####[facility] [address] [place], [address] Bilirubin [Mass/Vol] 0.55 mg/dL Normal 0.00-1.30 [facility] Comment on above: Performed By: #### L 100.0100, L501.2450, L500.4050 ####[facility] [address] [place], [address] BUN/CRE 25.9 RATIO High 10-20 [facility] Comment on above: Performed By: #### L 100.0100, L501.2450, L500.4050 ####[facility] [address] [place], [address] Calcium [Mass/Vol] 9.5 mg/dL Normal 7.6-11.0 [facility] Comment on above: Performed By: #### L 100.0100, L501.2450, L500.4050 ####[facility] [address] [place], [address] Chloride [Moles/Vol] 99 mmol/L Normal 98-108 [facility] Comment on above: Performed By: #### L 100.0100, L501.2450, L500.4050 ####[facility] [address] [place], [address] CO2 [Moles/Vol] 23.1 mmol/L Normal 21.0-32.0 [facility] Comment on above: Performed By: #### L 100.0100, L501.2450, L500.4050 ####[facility] [address] [place], [address] Creatinine [Mass/Vol] 0.72 mg/dL Normal 0.70-1.20 [facility] Comment on above: Performed By: #### L 100.0100, L501.2450, L500.4050 ####[facility] [address] [place], [address] ECRCL 46.24 ml/min Low 50-250 [facility] Comment on above: Performed By: #### L 100.0100, L501.2450, L500.4050 ####[facility] [address] [place], [address] GAP 15 Normal 5-15 [facility] Comment on above: Performed By: #### L 100.0100, L501.2450, L500.4050 ####[facility] [address] [place], [address] GFR/1.73 sq M.predicted among non-blacks MDRD (S/P/Bld) [Vol rate/Area] 92 mL/min/{1.73_m2} Normal >60 [facility] Comment on above: Result Comment: mL/m in/1.73m2 CKD-EPI Creatinine Equation (2020) Performed By: #### L 100.0100, L501.2450, L500.4050 ####[facility] [address] [place], [address] Globulin (S) [Mass/Vol] 2.9 g/dL Normal 2.2-4.2 [facility] Comment on above: Performed By: #### L 100.0100, L501.2450, L500.4050 ####[facility] [address] [place], [address] Glucose [Mass/Vol] 116 mg/dL High 70-99 [facility] Comment on above: Performed By: #### L 100.0100, L501.2450, L500.4050 ####[facility] [address] [place], [address] Potassium [Moles/Vol] 3.4 mmol/L Normal 3.3-5.1 [facility] Comment on above: Performed By: #### L 100.0100, L501.2450, L500.4050 ####[facility] [address] [place], [address] Sodium [Moles/Vol] 137 mmol/L Normal 133-145 [facility] Comment on above: Performed By: #### L 100.0100, L501.2450, L500.4050 ####[facility] [address] [place], [address] T PROT 7.5 g/dL Normal 5.9-8.4 [facility] Comment on above: Performed By: #### L 100.0100, L501.2450, L500.4050 ####[facility] [address] [place], [address] Urea nitrogen [Mass/Vol] 19 mg/dL Normal 4-19 [facility] Comment on above: Performed By: #### L 100.0100, L501.2450, L500.4050 ####[facility] [address] [place], [place], [address] Emergency Department Summary on 07-11-2024 Emergency Department Summary Normal [facility] Eosinophil percentageOrdered By: Milagro Ying on 07-11-2024 Eosinophils/100 WBC (Bld) 0.0 % 0-5 [facility] Erythrocyte distribution wid th (RBC) [Ratio]Ordered By: Milagro Ying on 07-11-2024 Erythrocyte distribution width (RBC) [Entitic vol] 60.1 fL High 35.1-43.9 [facility] Erythrocyte distribution wid th ratioOrdered By: Remus Stepan on 07-11-2024 Erythrocyte distribution width (RBC) [Ratio] 16.2 % High 11.6-14.6 [facility] Erythrocyte distribution wid th standard deviationOrdered By: Remus Ying on 07-11-2024 Erythrocyte distribution width (RBC) [Ratio] 60.1 fl High 35.1-43.9 [facility] Estimation of creatinine lupe aranceOrdered By: Milagro iYng on 07-11-2024 Estimated Creatinine Clearance Calc 46.24 ml/min Low 50-250 [facility] GFR/1.73 sq M.predicted mayco g non-blacks MDRD (S/P/Bld) [Vol rate/Area]Ordered By: Milagro Ying on 07-11-2024 Estimated GFR (MDRD) Non-Af Amer 92 >60 [facility] Comment on above: mL/min/1.73m2 CKD-EP I Creatinine Equation (2020) Glomerular filtration rate ( GFR) estimation/1.73 sq m using serum, plasma, or whole bOrdered By: Milagro Ying on 07-11-2024 GFR/1.73 sq M.predicted among non-blacks MDRD (S/P/Bld) [Vol rate/Area] 92 mL/min/{1.73_m2} >60 [facility] Comment on above: mL/min/1.73m2 CKD-EP I Creatinine Equation (2020) Hematocrit Auto (Bld) [Volum e fraction]Ordered By: Milagro Ying on 07-11-2024 Hematocrit (Bld) [Volume fraction] 31.4 % Low 37-47 [facility] Hemoglobin measurementOrdere d By: Milagro Ying on 07-11-2024 Hemoglobin (Bld) [Mass/Vol] 11.1 g/dL Low 12.0-15.0 [facility] Hyaline casts LM.LPF (Urine sed) [#/Area]Ordered By: Milagro Ying on 07-11-2024 Hyaline casts (Urine sed) [#/Area] 0 /[LPF] 0-5 [facility] Immature granulocytes/100 WB C Auto (Bld)Ordered By: Milagro Ying on 07-11-2024 Immature granulocytes/100 WBC (Bld) 0.900 % 0.0-0.9 [facility] Comment on above: IG% - Immature Granu locytes (promyelocytes, myelocytes and metamyelocytes) > 1% indicates that a LEFT SHIFT is Present. Ketones Test strip Ql (U)Ord ered By: Milagro Ying on 07-11-2024 Ketones Ql (U) Negative Negative [facility] Laboratory - Chemistry and C hemistry - challengeOrdered By: Milagro Ying on 07-11-2024 AST [Catalytic activity/Vol] 23 U/L <32 [facility] Lipaseon 07-11-2024 Lipase [Catalytic activity/Vol] 56 U/L Normal 13-75 [facility] Comment on above: Result Comment: Pleletha se note:LIPASE revised reference range effective 22.New Lipase methodology. Expected to produce lower valuesthan the previous assay method.NEW Reference Range: 13 - 75 U/L Performed By: #### L 100.0100, L501.2450, L500.4050 ####[facility] [address] [place], [address] Lipase measurementOrdered By : Milagro Ying on 07-11-2024 Lipase [Catalytic activity/Vol] 56 U/L 13-75 [facility] Comment on above: Please note:LIPASE r evised reference range effective 22. New Lipase methodology. Expected to produce lower values than the previous assay method. NEW Reference Range: 13 - 75 U/L Lymphocytes Auto (Unsp spec) [#/Vol]Ordered By: Milagro Ying on 07-11-2024 Lymphocytes (Bld) [#/Vol] 1.77 10*3/uL 0.83-4.51 [facility] Lymphocytes/100 WBC Auto (Un sp spec)Ordered By: Milagro Ying on 07-11-2024 Lymphocytes/100 WBC (Bld) 15.4 % Low 19-41 [facility] MCV (mean corpuscular volume ) determinationOrdered By: Milagro Ying on 07-11-2024 MCV (RBC) [Entitic vol] 99.4 fL High 81-99 [facility] Mean corpuscular hemoglobin (MCH) determinationOrdered By: Milagro Ying on 07-11-2024 MCH (RBC) [Entitic mass] 35.1 pg High 27.0-32.0 [facility] Mean corpuscular hemoglobin concentration (MCHC) determinationOrdered By: Milagro Ying on 07-11-2024 MCHC (RBC) [Mass/Vol] 35.4 g/dL 32-36 [facility] Mean platelet volume determi nationOrdered By: Milagro Ying on 07-11-2024 Platelet mean volume (Bld) [Entitic vol] 9.1 fL 6.2-12.0 [facility] Microscopic analysis of urin e for red blood cells (RBC)Ordered By: Milargo Ying on 07-11-2024 Microscopic analysis of urine for red blood cells (RBC) 0-5 SEEN /hpf 0-5 [facility] Monocyte percentageOrdered B y: Milagro Ying on 07-11-2024 Monocytes/100 WBC (Bld) 6.6 % 0-10 [facility] Mucus LM Ql (Urine sed)Order ed By: Milagro Ying on 07-11-2024 Mucus Ql (Urine sed) 0 SEEN /hpf [facility] Neutrophil percentageOrdered By: Milagro Ying on 07-11-2024 Neutrophils/100 WBC (Bld) 76.8 % High 47-70 [facility] Nitrite Test strip Ql (U)Ord ered By: Milagro Ying on 07-11-2024 Nitrite Ql (U) Negative Negative [facility] Nucleated red blood cell per centageOrdered By: Milagro Ying on 07-11-2024 Nucleated RBC/100 WBC (Bld) [Ratio] 0 % 0-5 [facility] Platelet countOrdered By: Ronda Ying on 07-11-2024 Platelets (Bld) [#/Vol] 309 10*3/uL 150-450 [facility] Potassium (Unsp spec) [Mass/ Vol]Ordered By: Milagro Ying on 07-11-2024 Potassium [Moles/Vol] 3.4 mmol/L 3.3-5.1 [facility] Potassium measurement (mass/ volume)Ordered By: Milagro Ying on 07-11-2024 Potassium (Unsp spec) [Mass/Vol] 3.4 mmol/L 3.3-5.1 [facility] Protein Test strip Ql (U)Ord ered By: Milagro Ying on 07-11-2024 Protein Ql (U) TNP [facility] Comment on above: Test not performedSE E URINE CHEMISTRY PROTIEN ORDER FOR THIS RESULT. Protein, Urine (Random)on Protein (U) [Mass/Vol] 13.1 mg/dL High 0.0-12.0 [facility] Comment on above: Performed By: #### L 501.1930 ####[facility] [address] [place], [address] RBC Auto (Bld) [#/Vol]Ordere d By: Milagro Ying on 07-11-2024 RBC (Bld) [#/Vol] 3.16 10*6/uL Low 4.2-5.4 [facility] Serum creatinine measurement (mass/volume)Ordered By: Milagro Ying on 07-11-2024 Creatinine [Mass/Vol] 0.72 mg/dL 0.70-1.20 [facility] Serum globulin measurementOr dered By: Milagro Ying on 07-11-2024 Globulin (S) [Mass/Vol] 2.9 g/dL 2.2-4.2 [facility] Serum glucose measurement (m ass/volume)Ordered By: Milagro Ying on 07-11-2024 Glucose [Mass/Vol] 116 mg/dL High 70-99 [facility] Serum or plasma alanine ramirez otransferase (ALT) measurementOrdered By: Milagro Ying on 07-11-2024 ALT [Catalytic activity/Vol] 10 U/L <35 [facility] Serum or plasma albumin renetta urement (mass/volume)Ordered By: Milagro Ying on 07-11-2024 Albumin [Mass/Vol] 4.6 g/dL 3.4-4.8 [facility] Serum or plasma albumin/glob ulin mass ratioOrdered By: Milagro Ying on 07-11-2024 Albumin/Globulin [Mass ratio] 1.6 {ratio} 0.9-2.4 [facility] Serum or plasma alkaline marquez sphatase measurementOrdered By: Milagro Ying on 07-11-2024 ALP [Catalytic activity/Vol] 56 U/L 35-104 [facility] Serum or plasma calcium renetta urement (mass/volume)Ordered By: Milagro Ying on 07-11-2024 Calcium [Mass/Vol] 9.5 mg/dL 7.6-11.0 [facility] Serum or plasma urea nitroge n measurement (mass/volume)Ordered By: Milagro Ying on 07-11-2024 Urea nitrogen [Mass/Vol] 19 mg/dL 4-19 [facility] Sodium levelOrdered By: Vidal Ying on 07-11-2024 Sodium [Moles/Vol] 137 mmol/L 133-145 [facility] Squamous epithelial cells de tection in urine sediment by light microscopyOrdered By: Milagro Ying on 07-11-2024 Epithelial cells.squamous LM Ql (Urine sed) 0 SEEN /hpf 5-10 [facility] Total proteinOrdered By: Ashley Ying on 07-11-2024 Protein [Mass/Vol] 7.5 g/dL 5.9-8.4 [facility] Urinalysis, Completeon 07-11 CAST,FINE GRAN 0-5 SEEN Normal 0-5 [facility] Comment on above: Order Comment: CLEAN CATCH Performed By: #### L 400.0001 ####[facility] [address] [place], [address] CAST,HYALINE 0-5 SEEN Normal 0-5 [facility] Comment on above: Order Comment: CLEAN CATCH Performed By: #### L 400.0001 ####[facility] [address] [place], [address] RBC 0-5 SEEN Normal 0-5 [facility] Comment on above: Order Comment: CLEAN CATCH Performed By: #### L 400.0001 ####[facility] [address] [place], [address] WBC 0-5 SEEN Normal 0-5 [facility] Comment on above: Order Comment: CLEAN CATCH Performed By: #### L 400.0001 ####[facility] [address] [place], [address] BACTERIA 0 SEEN Normal None Seen [facility] Comment on above: Order Comment: CLEAN CATCH Performed By: #### L 400.0001 ####[facility] [address] [place], [address] EPI,SQUAMOUS 0 SEEN Normal 5-10 [facility] Comment on above: Order Comment: CLEAN CATCH Performed By: #### L 400.0001 ####[facility] [address] [place], [address] Mucus Ql (Urine sed) 0 SEEN Normal [facility] Comment on above: Order Comment: CLEAN CATCH Performed By: #### L 400.0001 ####[facility] [address] [place], [address] Urine clarityOrdered By: Ashley Ying on 07-11-2024 Clarity (U) Clear Clear [facility] Urine color determinationOrd ered By: Milagro Ying on 07-11-2024 Color (U) Yellow Yellow [facility] Urine glucose detectionOrder ed By: Milagro Ying on 07-11-2024 Glucose Ql (U) Normal mg/dl Normal [facility] Urine leukocyte esterase det ection by dipstickOrdered By: Milagro Ying on 07-11-2024 Leukocyte esterase Test strip Ql (U) Negative Negative [facility] Urine pHOrdered By: Milagro Un gur on 07-11-2024 pH (U) 6.5 [pH] 5.0 - 8.0 [facility] Urine protein measurement (m ass/volume)Ordered By: Milagro Ying on 07-11-2024 Protein (U) [Mass/Vol] 13.1 mg/dL High 0.0-12.0 [facility] Urine sediment bacteria coun t by microscopy (number/high power field)Ordered By: Milagro Ying on 07-11-2024 Bacteria LM.HPF (Urine sed) [#/Area] 0 /[HPF] None Seen [facility] Urine sediment fine granular cast count by microscopy (number/low power field)Ordered By: Milagro Ying on 07-11-2024 Fine Granular Casts LM.LPF (Urine sed) [#/Area] 0-5 SEEN /lpf 0-5 [facility] Urine specific gravity measu rementOrdered By: Milagro Ying on 07-11-2024 Specific gravity (U) [Rel density] 1.010 1.002-1.03 0 [facility] Urine urobilinogen measureme ntOrdered By: Milgaro Ying on 07-11-2024 Urobilinogen Ql (U) Normal mg/dl Normal [facility] White blood cell (WBC) count Ordered By: Milagro Ying on 07-11-2024 WBC (Bld) [#/Vol] 11.5 10*3/uL High 4.4-11.0 [facility] White blood cell countOrdere d By: Milagro Ying on 07-11-2024 White blood cell count 0-5 SEEN /hpf 0-5 [facility] CNPNon 07-04-2024 CNPN Normal [facility] CNPNon 07-02-2024 CNPN Normal [facility] CNCNPATEDon 06-25-2024 CNCNPATED Normal [facility] CBC W Auto Differential pane l (Bld)on 06-17-2024 Basophils (Bld) [#/Vol] 0.05 10*3/uL Normal <0.11 [facility] Comment on above: Order Comment: Speci men Type: BLOOD SPECIMENOrdering Facility: [facility] Address: [address] [place] [address] Performed By: #### 5 7021-8 ####[facility] HOSPITALWRILIA [id number] [place] [address] [place] Basophils/100 WBC (Bld) 0.8 % Normal [facility] Comment on above: Order Comment: Speci men Type: BLOOD SPECIMENOrdering Facility: [facility] Address: [address] [place] [address] Performed By: #### 5 7021-8 ####[facility] [id number] [place] [address] [place] Differential cell count method Nom (Bld) Auto Normal [facility] Comment on above: Order Comment: Speci men Type: BLOOD SPECIMENOrdering Facility: [facility] Address: [address] [place] [address] Performed By: #### 5 7021-8 ####[facility] [id number] [place] [address] [place] Eosinophils (Bld) [#/Vol] 0.23 10*3/uL Normal <0.46 [facility] Comment on above: Order Comment: Speci men Type: BLOOD SPECIMENOrdering Facility: [facility] Address: [address] [place] [address] Performed By: #### 5 7021-8 ####[facility]TONL[facility] [id number] [place] [address] [place] Eosinophils/100 WBC (Bld) 3.6 % Normal [facility] Comment on above: Order Comment: Speci men Type: BLOOD SPECIMENOrdering Facility: [facility] Address: [address] [place] [address] Performed By: #### 5 7021-8 ####[facility] [id number] [place] [address] [place] Erythrocyte distribution width (RBC) [Ratio] 20.2 % High 11.5-15.0 [facility] Comment on above: Order Comment: Speci men Type: BLOOD SPECIMENOrdering Facility: [facility] Address: [address] [place] [address] Performed By: #### 5 7021-8 ####[facility] HOSPITALNCKELSIE [id number] [place] [address] [place] Hematocrit (Bld) [Volume fraction] 33.8 % Low 36.0-46.0 [facility] Comment on above: Order Comment: Speci men Type: BLOOD SPECIMENOrdering Facility: [facility] Address: [address] [place] [address] Performed By: #### 5 7021-8 ####[facility] HOSPITALNCCALDERONA [id number] [place] [address] [place] Hemoglobin (Bld) [Mass/Vol] 11.2 g/dL Low 11.5-15.5 [facility] Comment on above: Order Comment: Speci men Type: BLOOD SPECIMENOrdering Facility: [facility] Address: [address] [place] [address] Performed By: #### 5 7021-8 ####[facility] HOSPITALNCLIA [id number] [place] [address] [place] Immature granulocytes (Bld) [#/Vol] 10*3/uL Normal <0.10 [facility] Comment on above: Order Comment: Speci men Type: BLOOD SPECIMENOrdering Facility: [facility] Address: [address] [place] [address] Performed By: #### 5 7021-8 ####[facility] DAYTONL[facility] [id number] [place] [address] [place] Immature granulocytes/100 WBC (Bld) 0.3 % Normal [facility] Comment on above: Order Comment: Speci men Type: BLOOD SPECIMENOrdering Facility: [facility] Address: [address] [place] [address] Performed By: #### 5 7021-8 ####[facility] [id number] [place] [address] [place] Lymphocytes (Bld) [#/Vol] 1.80 10*3/uL Normal 1.00-4.00 [facility] Comment on above: Order Comment: Speci men Type: BLOOD SPECIMENOrdering Facility: [facility] Address: [address] [place] [address] Performed By: #### 5 7021-8 ####[facility] [id number] [place] [address] [place] Lymphocytes/100 WBC (Bld) 28.1 % Normal [facility] Comment on above: Order Comment: Speci men Type: BLOOD SPECIMENOrdering Facility: [facility] Address: [address] [place] [address] Performed By: #### 5 7021-8 ####[facility] [id number] [place] [address] [place] MCH (RBC) [Entitic mass] 33.3 pg Normal 26.0-34.0 [facility] Comment on above: Order Comment: Speci men Type: BLOOD SPECIMENOrdering Facility: [facility] Address: [address] [place] [address] Performed By: #### 5 7021-8 ####[facility] [id number] [place] [address] [place] MCHC (RBC) [Mass/Vol] 33.1 g/dL Normal 30.5-36.0 [facility] Comment on above: Order Comment: Speci men Type: BLOOD SPECIMENOrdering Facility: [facility] Address: [address] [place] [address] Performed By: #### 5 7021-8 ####[facility] [id number] [place] [address] [place] MCV (RBC) [Entitic vol] 100.6 fL High 80.0-100.0 [facility] Comment on above: Order Comment: Speci men Type: BLOOD SPECIMENOrdering Facility: [facility] Address: [address] [place] [address] Performed By: #### 5 7021-8 ####[facility] [id number] [place] [address] [place] Monocytes (Bld) [#/Vol] 0.52 10*3/uL Normal <0.87 [facility] Comment on above: Order Comment: Speci men Type: BLOOD SPECIMENOrdering Facility: [facility] Address: [address] [place] [address] Performed By: #### 5 7021-8 ####[facility] [id number] [place] [address] [place] Monocytes/100 WBC (Bld) 8.1 % Normal [facility] Comment on above: Order Comment: Speci men Type: BLOOD SPECIMENOrdering Facility: [facility] Address: [address] [place] [address] Performed By: #### 5 7021-8 ####[facility] [id number] [place] [address] [place] Neutrophils (Bld) [#/Vol] 3.79 10*3/uL Normal 1.45-7.50 [facility] Comment on above: Order Comment: Speci men Type: BLOOD SPECIMENOrdering Facility: [facility] Address: [address] [place] [address] Performed By: #### 5 7021-8 ####[facility]NUCR[facility] [id number] [place] [address] [place] Neutrophils/100 WBC (Bld) 59.1 % Normal [facility] Comment on above: Order Comment: Speci men Type: BLOOD SPECIMENOrdering Facility: [facility] Address: [address] [place] [address] Performed By: #### 5 7021-8 ####[facility] HOSPITALKALIELetha [id number] [place] [address] [place] Nucleated RBC (Bld) [#/Vol] 10*3/uL Normal <0.01 [facility] Comment on above: Order Comment: Speci men Type: BLOOD SPECIMENOrdering Facility: [facility] Address: [address] [place] [address] Performed By: #### 5 7021-8 ####[facility]STLeth[facility] [id number] [place] [address] [place] Nucleated RBC/100 WBC (Bld) [Ratio] 0.0 /100 WBC Normal [facility] Comment on above: Order Comment: Speci men Type: BLOOD SPECIMENOrdering Facility: [facility] Address: [address] [place] [address] Performed By: #### 5 7021-8 ####[facility] HOSPITALGUMEA [id number] [place] [address] [place] Platelet mean volume (Bld) [Entitic vol] 8.2 fL Low 9.0-12.7 [facility] Comment on above: Order Comment: Speci men Type: BLOOD SPECIMENOrdering Facility: [facility] Address: [address] [place] [address] Performed By: #### 5 7021-8 ####[facility] HOSPITALNCLIA [id number] [place] [address] [place] Platelets (Bld) [#/Vol] 230 10*3/uL Normal 150-400 [facility] Comment on above: Order Comment: Speci men Type: BLOOD SPECIMENOrdering Facility: [facility] Address: [address] [place] [address] Performed By: #### 5 7021-8 ####[facility] [id number] [place] [address] [place] RBC (Bld) [#/Vol] 3.36 10*6/uL Low 3.90-5.20 [facility] Comment on above: Order Comment: Speci men Type: BLOOD SPECIMENOrdering Facility: [facility] Address: [address] [place] [address] Performed By: #### 5 7021-8 ####[facility] [id number] [place] [address] [place] WBC (Bld) [#/Vol] 6.41 10*3/uL Normal 3.70-11.00 [facility] Comment on above: Order Comment: Speci men Type: BLOOD SPECIMENOrdering Facility: [facility] Address: [address] [place] [address] Performed By: #### 5 7021-8 ####[facility] [id number] [place] [address] [place] CNOVSPon 06-17-2024 CNOVSP Normal [facility] Comprehensive metabolic 2000 panelon 06-17-2024 Albumin [Mass/Vol] 4.1 g/dL Normal 3.9-4.9 [facility] Comment on above: Order Comment: Speci men Type: BLOOD SPECIMENOrdering Facility: [facility] Address: [address] [place] [address] Performed By: #### 2 4323-8 ####[facility] MILLTOWNCLIA [id number] [place] [address] [place] ALP [Catalytic activity/Vol] 58 U/L Normal 34-123 [facility] Comment on above: Order Comment: Speci men Type: BLOOD SPECIMENOrdering Facility: [facility] Address: [address] [place] [address] Performed By: #### 2 4323-8 ####[facility] MILLTOWNCL[facility] [id number] [place] [address] [place] ALT [Catalytic activity/Vol] U/L Low 7-38 [facility] Comment on above: Order Comment: Speci men Type: BLOOD SPECIMENOrdering Facility: [facility] Address: [address] [place] [address] Performed By: #### 2 4323-8 ####[facility] HOSPITALWNCLIA [id number] [place] [address] [place] Anion gap [Moles/Vol] 11 mmol/L Normal 8-15 [facility] Comment on above: Order Comment: Speci men Type: BLOOD SPECIMENOrdering Facility: [facility] Address: [address] [place] [address] Performed By: #### 2 4323-8 ####[facility] HOSPITALWNCLIA [id number] [place] [address] [place] AST [Catalytic activity/Vol] 13 U/L Normal 13-35 [facility] Comment on above: Order Comment: Speci men Type: BLOOD SPECIMENOrdering Facility: [facility] Address: [address] [place] [address] Performed By: #### 2 4323-8 ####[facility] MILLTOWNCLIA [id number] [place] [address] [place] Bilirubin [Mass/Vol] 0.3 mg/dL Normal 0.2-1.3 [facility] Comment on above: Order Comment: Speci men Type: BLOOD SPECIMENOrdering Facility: [facility] Address: [address] [place] [address] Performed By: #### 2 4323-8 ####[facility] BISHNUWNCL[facility] [id number] [place] [address] [place] Calcium [Mass/Vol] 9.3 mg/dL Normal 8.5-10.2 [facility] Comment on above: Order Comment: Speci men Type: BLOOD SPECIMENOrdering Facility: [facility] Address: [address] [place] [address] Performed By: #### 2 4323-8 ####[facility]ITALNCLIA [id number] [place] [address] [place] Chloride [Moles/Vol] 110 mmol/L High 98-107 [facility] Comment on above: Order Comment: Speci men Type: BLOOD SPECIMENOrdering Facility: [facility] Address: [address] [place] [address] Performed By: #### 2 4323-8 ####[facility]PITALNCLIA [id number] [place] [address] [place] CO2 [Moles/Vol] 19 mmol/L Low 22-30 [facility] Comment on above: Order Comment: Speci men Type: BLOOD SPECIMENOrdering Facility: [facility] Address: [address] [place] [address] Performed By: #### 2 4323-8 ####[facility] [facility] HOSPITALNCLIA [id number] [place] [address] [place] Creatinine [Mass/Vol] 0.63 mg/dL Normal 0.58-0.96 [facility] Comment on above: Order Comment: Speci men Type: BLOOD SPECIMENOrdering Facility: [facility] Address: [address] [place] [address] Performed By: #### 2 4323-8 ####[facility] HOSPITALWNCLIA [id number] [place] [address] [place] Creatinine and Glomerular filtration rate.predicted panel (S/P/Bld) 99 mL/min/1.73m??? Normal >=60 [facility] Comment on above: Order Comment: Umesh baugh Type: BLOOD SPECIMENOrdering Facility: [facility] Address: [address] [place] [address] Result Comment: Sana mated Glomerular Filtration Rate [...] actual GFR. Performed By: #### 2 4323-8 ####[facility] H[facility]PITALNCLIA [id number] [place] [address] [place] Glucose [Mass/Vol] 115 mg/dL High 74-99 [facility] Comment on above: Order Comment: Umesh baugh Type: BLOOD SPECIMENOrdering Facility: [facility] Address: [address] [place] [address] Result Comment: The [place] [employer] (ADA) provides guidance for cutoff [...] Standards of Medical Care in Diabetes 2016, [place] [employer]. Diabetes Care. 2016.39(Suppl 1). Performed By: #### 2 4323-8 ####[facility] [id number] [place] [address] [place] Potassium [Moles/Vol] 3.9 mmol/L Normal 3.7-5.1 [facility] Comment on above: Order Comment: Speci men Type: BLOOD SPECIMENOrdering Facility: [facility] Address: [address] [place] [address] Performed By: #### 2 4323-8 ####[facility] MILLWNCLIA [id number] [place] [address] [place] Protein [Mass/Vol] 6.8 g/dL Normal 6.3-8.0 [facility] Comment on above: Order Comment: Speci men Type: BLOOD SPECIMENOrdering Facility: [facility] Address: [address] [place] [address] Performed By: #### 2 4323-8 ####[facility] DAYTONLIA [id number] [place] [address] [place] Sodium [Moles/Vol] 140 mmol/L Normal 136-144 [facility] Comment on above: Order Comment: Speci men Type: BLOOD SPECIMENOrdering Facility: [facility] Address: [address] [place] [address] Performed By: #### 2 4323-8 ####[facility] HOSPITALWNCLIA [id number] [place] [address] [place] Urea nitrogen [Mass/Vol] 14 mg/dL Normal 7-21 [facility] Comment on above: Order Comment: Speci men Type: BLOOD SPECIMENOrdering Facility: [facility] Address: [address] [place] [address] Performed By: #### 2 4323-8 ####[facility] MILLWNCLIA [id number] [place] [address] [place] CNPNon 05-29-2024 CNPN Normal [facility] CBC W Auto Differential pane l (Bld)on 05-27-2024 Basophils (Bld) [#/Vol] 0.06 10*3/uL Normal <0.11 [facility] Comment on above: Order Comment: Speci men Type: BLOOD SPECIMENOrdering Facility: [facility] Address: [address] [place] [address] Performed By: #### 5 7021-8 ####[facility] HOSPITALWRILIA [id number] [place] [address] [place] Basophils/100 WBC (Bld) 0.8 % Normal [facility] Comment on above: Order Comment: Speci men Type: BLOOD SPECIMENOrdering Facility: [facility] Address: [address] [place] [address] Performed By: #### 5 7021-8 ####[facility] [id number] [place] [address] [place] Differential cell count method Nom (Bld) Auto Normal [facility] Comment on above: Order Comment: Speci men Type: BLOOD SPECIMENOrdering Facility: [facility] Address: [address] [place] [address] Performed By: #### 5 7021-8 ####[facility] [id number] [place] [address] [place] Eosinophils (Bld) [#/Vol] 0.15 10*3/uL Normal <0.46 [facility] Comment on above: Order Comment: Speci men Type: BLOOD SPECIMENOrdering Facility: [facility] Address: [address] [place] [address] Performed By: #### 5 7021-8 ####[facility] [id number] [place] [address] [place] Eosinophils/100 WBC (Bld) 1.9 % Normal [facility] Comment on above: Order Comment: Speci men Type: BLOOD SPECIMENOrdering Facility: [facility] Address: [address] [place] [address] Performed By: #### 5 7021-8 ####[facility] [id number] [place] [address] [place] Erythrocyte distribution width (RBC) [Ratio] 20.0 % High 11.5-15.0 [facility] Comment on above: Order Comment: Speci men Type: BLOOD SPECIMENOrdering Facility: [facility] Address: [address] [place] [address] Performed By: #### 5 7021-8 ####[facility] HOSPITALNCKELSIE [id number] [place] [address] [place] Hematocrit (Bld) [Volume fraction] 37.3 % Normal 36.0-46.0 [facility] Comment on above: Order Comment: Speci men Type: BLOOD SPECIMENOrdering Facility: [facility] Address: [address] [place] [address] Performed By: #### 5 7021-8 ####[facility] HOSPITALGUMEA [id number] [place] [address] [place] Hemoglobin (Bld) [Mass/Vol] 13.2 g/dL Normal 11.5-15.5 [facility] Comment on above: Order Comment: Speci men Type: BLOOD SPECIMENOrdering Facility: [facility] Address: [address] [place] [address] Performed By: #### 5 7021-8 ####[facility] DAYTONLIA [id number] [place] [address] [place] Immature granulocytes (Bld) [#/Vol] 0.06 10*3/uL Normal <0.10 [facility] Comment on above: Order Comment: Speci men Type: BLOOD SPECIMENOrdering Facility: [facility] Address: [address] [place] [address] Performed By: #### 5 7021-8 ####[facility] DAYTONLIA [id number] [place] [address] [place] Immature granulocytes/100 WBC (Bld) 0.8 % Normal [facility] Comment on above: Order Comment: Speci men Type: BLOOD SPECIMENOrdering Facility: [facility] Address: [address] [place] [address] Performed By: #### 5 7021-8 ####[facility] [id number] [place] [address] [place] Lymphocytes (Bld) [#/Vol] 2.61 10*3/uL Normal 1.00-4.00 [facility] Comment on above: Order Comment: Speci men Type: BLOOD SPECIMENOrdering Facility: [facility] Address: [address] [place] [address] Performed By: #### 5 7021-8 ####[facility] [id number] [place] [address] [place] Lymphocytes/100 WBC (Bld) 33.5 % Normal [facility] Comment on above: Order Comment: Speci men Type: BLOOD SPECIMENOrdering Facility: [facility] Address: [address] [place] [address] Performed By: #### 5 7021-8 ####[facility] [id number] [place] [address] [place] MCH (RBC) [Entitic mass] 32.8 pg Normal 26.0-34.0 [facility] Comment on above: Order Comment: Speci men Type: BLOOD SPECIMENOrdering Facility: [facility] Address: [address] [place] [address] Performed By: #### 5 7021-8 ####[facility] [id number] [place] [address] [place] MCHC (RBC) [Mass/Vol] 35.4 g/dL Normal 30.5-36.0 [facility] Comment on above: Order Comment: Speci men Type: BLOOD SPECIMENOrdering Facility: [facility] Address: [address] [place] [address] Performed By: #### 5 7021-8 ####[facility] H[facility]PITALNCLIA [id number] [place] [address] [place] MCV (RBC) [Entitic vol] 92.8 fL Normal 80.0-100.0 [facility] Comment on above: Order Comment: Speci men Type: BLOOD SPECIMENOrdering Facility: [facility] Address: [address] [place] [address] Performed By: #### 5 7021-8 ####[facility] HOSPITALNCA [id number] [place] [address] [place] Monocytes (Bld) [#/Vol] 0.88 10*3/uL High <0.87 [facility] Comment on above: Order Comment: Speci men Type: BLOOD SPECIMENOrdering Facility: [facility] Address: [address] [place] [address] Performed By: #### 5 7021-8 ####[facility] [id number] [place] [address] [place] Monocytes/100 WBC (Bld) 11.3 % Normal [facility] Comment on above: Order Comment: Speci men Type: BLOOD SPECIMENOrdering Facility: [facility] Address: [address] [place] [address] Performed By: #### 5 7021-8 ####[facility] H[facility]PITALNCLIA [id number] [place] [address] [place] Neutrophils (Bld) [#/Vol] 4.04 10*3/uL Normal 1.45-7.50 [facility] Comment on above: Order Comment: Speci men Type: BLOOD SPECIMENOrdering Facility: [facility] Address: [address] [place] [address] Performed By: #### 5 7021-8 ####[facility] BISHNUALLOYFUAD [id number] [place] [address] [place] Neutrophils/100 WBC (Bld) 51.7 % Normal [facility] Comment on above: Order Comment: Speci men Type: BLOOD SPECIMENOrdering Facility: [facility] Address: [address] [place] [address] Performed By: #### 5 7021-8 ####[facility] [id number] [place] [address] [place] Nucleated RBC (Bld) [#/Vol] 10*3/uL Normal <0.01 [facility] Comment on above: Order Comment: Speci men Type: BLOOD SPECIMENOrdering Facility: [facility] Address: [address] [place] [address] Performed By: #### 5 7021-8 ####[facility] [id number] [place] [address] [place] Nucleated RBC/100 WBC (Bld) [Ratio] 0.0 /100 WBC Normal [facility] Comment on above: Order Comment: Speci men Type: BLOOD SPECIMENOrdering Facility: [facility] Address: [address] [place] [address] Performed By: #### 5 7021-8 ####[facility] H[facility]PITALNCLIA [id number] [place] [address] [place] Platelet mean volume (Bld) [Entitic vol] 8.5 fL Low 9.0-12.7 [facility] Comment on above: Order Comment: Speci men Type: BLOOD SPECIMENOrdering Facility: [facility] Address: [address] [place] [address] Performed By: #### 5 7021-8 ####[facility] LALYWNCLIA [id number] [place] [address] [place] Platelets (Bld) [#/Vol] 278 10*3/uL Normal 150-400 [facility] Comment on above: Order Comment: Speci men Type: BLOOD SPECIMENOrdering Facility: [facility] Address: [address] [place] [address] Performed By: #### 5 7021-8 ####[facility]ITALNCLIA [id number] [place] [address] [place] RBC (Bld) [#/Vol] 4.02 10*6/uL Normal 3.90-5.20 [facility] Comment on above: Order Comment: Speci men Type: BLOOD SPECIMENOrdering Facility: [facility] Address: [address] [place] [address] Performed By: #### 5 7021-8 ####[facility]ITALNCLIA [id number] [place] [address] [place] WBC (Bld) [#/Vol] 7.80 10*3/uL Normal 3.70-11.00 [facility] Comment on above: Order Comment: Speci men Type: BLOOD SPECIMENOrdering Facility: [facility] Address: [address] [place] [address] Performed By: #### 5 7021-8 ####[facility]PITALNCLIA [id number] [place] [address] [place] Comprehensive metabolic 2000 panelon 05-27-2024 Albumin [Mass/Vol] 4.4 g/dL Normal 3.9-4.9 [facility] Comment on above: Order Comment: Speci men Type: BLOOD SPECIMENOrdering Facility: [facility] Address: [address] [place] [address] Performed By: #### 2 4323-8 ####[facility]ITALNCLIA [id number] [place] [address] [place] ALP [Catalytic activity/Vol] 54 U/L Normal 34-123 [facility] Comment on above: Order Comment: Speci men Type: BLOOD SPECIMENOrdering Facility: [facility] Address: [address] [place] [address] Performed By: #### 2 4323-8 ####[facility] [id number] [place] [address] [place] ALT [Catalytic activity/Vol] 9 U/L Normal 7-38 [facility] Comment on above: Order Comment: Speci men Type: BLOOD SPECIMENOrdering Facility: [facility] Address: [address] [place] [address] Performed By: #### 2 4323-8 ####[facility] [id number] [place] [address] [place] Anion gap [Moles/Vol] 14 mmol/L Normal 8-15 [facility] Comment on above: Order Comment: Speci men Type: BLOOD SPECIMENOrdering Facility: [facility] Address: [address] [place] [address] Performed By: #### 2 4323-8 ####[facility] HOSPITALNCLI [id number] [place] [address] [place] AST [Catalytic activity/Vol] 17 U/L Normal 13-35 [facility] Comment on above: Order Comment: Speci men Type: BLOOD SPECIMENOrdering Facility: [facility] Address: [address] [place] [address] Performed By: #### 2 4323-8 ####[facility] H[facility]PITALNCLIA [id number] [place] [address] [place] Bilirubin [Mass/Vol] 0.5 mg/dL Normal 0.2-1.3 [facility] Comment on above: Order Comment: Speci men Type: BLOOD SPECIMENOrdering Facility: [facility] Address: [address] [place] [address] Performed By: #### 2 4323-8 ####[facility] [id number] [place] [address] [place] Calcium [Mass/Vol] 9.7 mg/dL Normal 8.5-10.2 [facility] Comment on above: Order Comment: Speci men Type: BLOOD SPECIMENOrdering Facility: [facility] Address: [address] [place] [address] Performed By: #### 2 4323-8 ####[facility] H[facility]PITALNCLIA [id number] [place] [address] [place] Chloride [Moles/Vol] 96 mmol/L Low 98-107 [facility] Comment on above: Order Comment: Speci men Type: BLOOD SPECIMENOrdering Facility: [facility] Address: [address] [place] [address] Performed By: #### 2 4323-8 ####[facility] HOSPITALGUMEA [id number] [place] [address] [place] CO2 [Moles/Vol] 26 mmol/L Normal 22-30 [facility] Comment on above: Order Comment: Speci men Type: BLOOD SPECIMENOrdering Facility: [facility] Address: [address] [place] [address] Performed By: #### 2 4323-8 ####[facility] H[facility]PITALNCLIA [id number] [place] [address] [place] Creatinine [Mass/Vol] 0.66 mg/dL Normal 0.58-0.96 [facility] Comment on above: Order Comment: Speci men Type: BLOOD SPECIMENOrdering Facility: [facility] Address: [address] [place] [address] Performed By: #### 2 4323-8 ####[facility] HOSPITALNCLI [id number] [place] [address] [place] Creatinine and Glomerular filtration rate.predicted panel (S/P/Bld) 97 mL/min/1.73m??? Normal >=60 [facility] Comment on above: Order Comment: Umesh baugh Type: BLOOD SPECIMENOrdering Facility: [facility] Address: [address] [place] [address] Result Comment: Sana mated Glomerular Filtration Rate [...] actual GFR. Performed By: #### 2 4323-8 ####[facility] [id number] [place] [address] [place] Glucose [Mass/Vol] 120 mg/dL High 74-99 [facility] Comment on above: Order Comment: Umesh baugh Type: BLOOD SPECIMENOrdering Facility: [facility] Address: [address] [place] [address] Result Comment: The [place] [employer] (ADA) provides guidance for cutoff [...] Standards of Medical Care in Diabetes 2016, [place] [employer]. Diabetes Care. 2016.39(Suppl 1). Performed By: #### 2 4323-8 ####[facility] [id number] [place] [address] [place] Potassium [Moles/Vol] 3.3 mmol/L Low 3.7-5.1 [facility] Comment on above: Order Comment: Speci men Type: BLOOD SPECIMENOrdering Facility: [facility] Address: [address] [place] [address] Performed By: #### 2 4323-8 ####[facility] MILLWKALIELIA [id number] [place] [address] [place] Protein [Mass/Vol] 7.4 g/dL Normal 6.3-8.0 [facility] Comment on above: Order Comment: Speci men Type: BLOOD SPECIMENOrdering Facility: [facility] Address: [address] [place] [address] Performed By: #### 2 4323-8 ####[facility] HOSPITALGUMEA [id number] [place] [address] [place] Sodium [Moles/Vol] 136 mmol/L Normal 136-144 [facility] Comment on above: Order Comment: Speci men Type: BLOOD SPECIMENOrdering Facility: [facility] Address: [address] [place] [address] Performed By: #### 2 4323-8 ####[facility] HOSPITALKALIELIA [id number] [place] [address] [place] Urea nitrogen [Mass/Vol] 16 mg/dL Normal 7-21 [facility] Comment on above: Order Comment: Speci men Type: BLOOD SPECIMENOrdering Facility: [facility] Address: [address] [place] [address] Performed By: #### 2 4323-8 ####[facility] H[facility]PITALNCLIA [id number] [place] [address] [place] CNPNon 05-24-2024 CNPN Normal [facility] CNOVon 05-13-2024 CNOV Normal [facility] CNPTOUTREACHon 05-07-2024 CNPTOUTREACH Normal [facility] CBC W Auto Differential pane l (Bld)on 05-06-2024 Basophils (Bld) [#/Vol] 0.07 10*3/uL Normal <0.11 [facility] Comment on above: Order Comment: Speci men Type: BLOOD SPECIMENOrdering Facility: [facility] Address: [address] [place] [address] Performed By: #### 5 7021-8 ####[facility] DAYTONLIA [id number] [place] [address] [place] Basophils/100 WBC (Bld) 1.1 % Normal [facility] Comment on above: Order Comment: Speci men Type: BLOOD SPECIMENOrdering Facility: [facility] Address: [address] [place] [address] Performed By: #### 5 7021-8 ####[facility] [id number] [place] [address] [place] Differential cell count method Nom (Bld) Auto Normal [facility] Comment on above: Order Comment: Speci men Type: BLOOD SPECIMENOrdering Facility: [facility] Address: [address] [place] [address] Performed By: #### 5 7021-8 ####[facility] DAYTONLIA [id number] [place] [address] [place] Eosinophils (Bld) [#/Vol] 0.23 10*3/uL Normal <0.46 [facility] Comment on above: Order Comment: Speci men Type: BLOOD SPECIMENOrdering Facility: [facility] Address: [address] [place] [address] Performed By: #### 5 7021-8 ####[facility] DAYTONLIA [id number] [place] [address] [place] Eosinophils/100 WBC (Bld) 3.6 % Normal [facility] Comment on above: Order Comment: Speci men Type: BLOOD SPECIMENOrdering Facility: [facility] Address: [address] [place] [address] Performed By: #### 5 7021-8 ####[facility] [id number] [place] [address] [place] Erythrocyte distribution width (RBC) [Ratio] 18.7 % High 11.5-15.0 [facility] Comment on above: Order Comment: Speci men Type: BLOOD SPECIMENOrdering Facility: [facility] Address: [address] [place] [address] Performed By: #### 5 7021-8 ####[facility] [id number] [place] [address] [place] Hematocrit (Bld) [Volume fraction] 36.6 % Normal 36.0-46.0 [facility] Comment on above: Order Comment: Speci men Type: BLOOD SPECIMENOrdering Facility: [facility] Address: [address] [place] [address] Performed By: #### 5 7021-8 ####[facility] [id number] [place] [address] [place] Hemoglobin (Bld) [Mass/Vol] 12.3 g/dL Normal 11.5-15.5 [facility] Comment on above: Order Comment: Speci men Type: BLOOD SPECIMENOrdering Facility: [facility] Address: [address] [place] [address] Performed By: #### 5 7021-8 ####[facility] [id number] [place] [address] [place] Immature granulocytes (Bld) [#/Vol] 0.03 10*3/uL Normal <0.10 [facility] Comment on above: Order Comment: Speci men Type: BLOOD SPECIMENOrdering Facility: [facility] Address: [address] [place] [address] Performed By: #### 5 7021-8 ####[facility] BISHNUWNCLIA [id number] [place] [address] [place] [facility] Immature granulocytes/100 WBC (Bld) 0.5 % Normal [facility] Comment on above: Order Comment: Speci men Type: BLOOD SPECIMENOrdering Facility: [facility] Address: [address] [place] [address] Performed By: #### 5 7021-8 ####[facility]PITALNCLIA [id number] [place] [address] [place] Lymphocytes (Bld) [#/Vol] 2.41 10*3/uL Normal 1.00-4.00 [facility] Comment on above: Order Comment: Speci men Type: BLOOD SPECIMENOrdering Facility: [facility] Address: [address] [place] [address] Performed By: #### 5 7021-8 ####[facility]ITALNCLIA [id number] [address] [place] Lymphocytes/100 WBC (Bld) 37.4 % Normal [facility] Comment on above: Order Comment: Speci men Type: BLOOD SPECIMENOrdering Facility: [facility] Address: [address] [place] [address] Performed By: #### 5 7021-8 ####[facility] DAYTONLIA [id number] [place] [address] [place] MCH (RBC) [Entitic mass] 31.2 pg Normal 26.0-34.0 [facility] Comment on above: Order Comment: Speci men Type: BLOOD SPECIMENOrdering Facility: [facility] Address: [address] [place] [address] Performed By: #### 5 7021-8 ####[facility] DAYTONLIA [id number] [place] [address] [place] MCHC (RBC) [Mass/Vol] 33.6 g/dL Normal 30.5-36.0 [facility] Comment on above: Order Comment: Speci men Type: BLOOD SPECIMENOrdering Facility: [facility] Address: [address] [place] [address] Performed By: #### 5 7021-8 ####[facility] [id number] [place] [address] [place] MCV (RBC) [Entitic vol] 92.9 fL Normal 80.0-100.0 [facility] Comment on above: Order Comment: Speci men Type: BLOOD SPECIMENOrdering Facility: [facility] Address: [address] [place] [address] Performed By: #### 5 7021-8 ####[facility] [id number] [place] [address] [place] Monocytes (Bld) [#/Vol] 0.50 10*3/uL Normal <0.87 [facility] Comment on above: Order Comment: Speci men Type: BLOOD SPECIMENOrdering Facility: [facility] Address: [address] [place] [address] Performed By: #### 5 7021-8 ####[facility] [id number] [place] [address] [place] Monocytes/100 WBC (Bld) 7.8 % Normal [facility] Comment on above: Order Comment: Speci men Type: BLOOD SPECIMENOrdering Facility: [facility] Address: [address] [place] [address] Performed By: #### 5 7021-8 ####[facility] H[facility]ITALNCLIA [id number] [place] [address] [place] Neutrophils (Bld) [#/Vol] 3.21 10*3/uL Normal 1.45-7.50 [facility] Comment on above: Order Comment: Speci men Type: BLOOD SPECIMENOrdering Facility: [facility] Address: [address] [place] [address] Performed By: #### 5 7021-8 ####[facility] [facility] [id number] [place] [address] [place] Neutrophils/100 WBC (Bld) 49.6 % Normal [facility] Comment on above: Order Comment: Speci men Type: BLOOD SPECIMENOrdering Facility: [facility] Address: [address] [place] [address] Performed By: #### 5 7021-8 ####[facility] [id number] [place] [address] [place] Nucleated RBC (Bld) [#/Vol] 10*3/uL Normal <0.01 [facility] Comment on above: Order Comment: Speci men Type: BLOOD SPECIMENOrdering Facility: [facility] Address: [address] [place] [address] Performed By: #### 5 7021-8 ####[facility] [id number] [place] [address] [place] Nucleated RBC/100 WBC (Bld) [Ratio] 0.0 /100 WBC Normal [facility] Comment on above: Order Comment: Speci men Type: BLOOD SPECIMENOrdering Facility: [facility] Address: [address] [place] [address] Performed By: #### 5 7021-8 ####[facility] [id number] [place] [address] [place] Platelet mean volume (Bld) [Entitic vol] 8.2 fL Low 9.0-12.7 [facility] Comment on above: Order Comment: Speci men Type: BLOOD SPECIMENOrdering Facility: [facility] Address: [address] [place] [address] Performed By: #### 5 7021-8 ####[facility] [id number] [place] [address] [place] Platelets (Bld) [#/Vol] 234 10*3/uL Normal 150-400 [facility] Comment on above: Order Comment: Speci men Type: BLOOD SPECIMENOrdering Facility: [facility] Address: [address] [place] [address] Performed By: #### 5 7021-8 ####[facility] BISHNUALLOYNCL[facility] [id number] [place] [address] [place] RBC (Bld) [#/Vol] 3.94 10*6/uL Normal 3.90-5.20 [facility] Comment on above: Order Comment: Speci men Type: BLOOD SPECIMENOrdering Facility: [facility] Address: [address] [place] [address] Performed By: #### 5 7021-8 ####[facility]ITALNCLIA [id number] [place] [address] [place] WBC (Bld) [#/Vol] 6.45 10*3/uL Normal 3.70-11.00 [facility] Comment on above: Order Comment: Speci men Type: BLOOD SPECIMENOrdering Facility: [facility] Address: [address] [place] [address] Performed By: #### 5 7021-8 ####[facility]ITALNCLIA [id number] [place] [address] [place] CNOVSPon 05-06-2024 CNOVSP Normal [facility] Comprehensive metabolic 2000 panelon 05-06-2024 Albumin [Mass/Vol] 4.4 g/dL Normal 3.9-4.9 [facility] Comment on above: Order Comment: Speci men Type: BLOOD SPECIMENOrdering Facility: [facility] Address: [address] [place] [address] Performed By: #### 2 4323-8 ####[facility] MILLTOWNCL[facility] [id number] [place] [address] [place] ALP [Catalytic activity/Vol] 63 U/L Normal 34-123 [facility] Comment on above: Order Comment: Speci men Type: BLOOD SPECIMENOrdering Facility: [facility] Address: [address] [place] [address] Performed By: #### 2 4323-8 ####[facility] MILLWNCLIA [id number] [place] [address] [place] ALT [Catalytic activity/Vol] 6 U/L Low 7-38 [facility] Comment on above: Order Comment: Speci men Type: BLOOD SPECIMENOrdering Facility: [facility] Address: [address] [place] [address] Performed By: #### 2 4323-8 ####[facility] DAYTONL[facility] [id number] [place] [address] [place] Anion gap [Moles/Vol] 11 mmol/L Normal 8-15 [facility] Comment on above: Order Comment: Speci men Type: BLOOD SPECIMENOrdering Facility: [facility] Address: [address] [place] [address] Performed By: #### 2 4323-8 ####[facility] MILLTOWNCLIA [id number] [place] [address] [place] AST [Catalytic activity/Vol] 15 U/L Normal 13-35 [facility] Comment on above: Order Comment: Speci men Type: BLOOD SPECIMENOrdering Facility: [facility] Address: [address] [place] [address] Performed By: #### 2 4323-8 ####[facility] MILLTOWNCLIA [id number] [place] [address] [place] Bilirubin [Mass/Vol] 0.2 mg/dL Normal 0.2-1.3 [facility] Comment on above: Order Comment: Speci men Type: BLOOD SPECIMENOrdering Facility: [facility] Address: [address] [place] [address] Performed By: #### 2 4323-8 ####[facility] MILLWNCLIA [id number] [place] [address] [place] Calcium [Mass/Vol] 9.7 mg/dL Normal 8.5-10.2 [facility] Comment on above: Order Comment: Speci men Type: BLOOD SPECIMENOrdering Facility: [facility] Address: [address] [place] [address] Performed By: #### 2 4323-8 ####[facility] H[facility]ITALWNCLIA [id number] [place] [address] [place] Chloride [Moles/Vol] 102 mmol/L Normal 98-107 [facility] Comment on above: Order Comment: Speci men Type: BLOOD SPECIMENOrdering Facility: [facility] Address: [address] [place] [address] Performed By: #### 2 4323-8 ####[facility] H[facility]PITALNCLIA [id number] [place] [address] [place] CO2 [Moles/Vol] 25 mmol/L Normal 22-30 [facility] Comment on above: Order Comment: Speci men Type: BLOOD SPECIMENOrdering Facility: [facility] Address: [address] [place] [address] Performed By: #### 2 4323-8 ####[facility] MILLALLOYNCLIA [id number] [place] [address] [place] Creatinine [Mass/Vol] 0.76 mg/dL Normal 0.58-0.96 [facility] Comment on above: Order Comment: Speci men Type: BLOOD SPECIMENOrdering Facility: [facility] Address: [address] [place] [address] Performed By: #### 2 4323-8 ####[facility] [id number] [place] [address] [place] Creatinine and Glomerular filtration rate.predicted panel (S/P/Bld) 87 mL/min/1.73m??? Normal >=60 [facility] Comment on above: Order Comment: Umesh baugh Type: BLOOD SPECIMENOrdering Facility: [facility] Address: [address] [place] [address] Result Comment: Sana mated Glomerular Filtration Rate [...] actual GFR. Performed By: #### 2 4323-8 ####[facility] [id number] [place] [address] [place] Glucose [Mass/Vol] 88 mg/dL Normal 74-99 [facility] Comment on above: Order Comment: Umesh lupis Type: BLOOD SPECIMENOrdering Facility: [facility] Address: [address] [place] [address] Result Comment: The [place] [employer] (ADA) provides guidance for cutoff [...] Standards of Medical Care in Diabetes 2016, [place] [employer]. Diabetes Care. 2016.39(Suppl 1). Performed By: #### 2 4323-8 ####[facility] MILLTOWNCLIA [id number] [place] [address] [place] Potassium [Moles/Vol] 4.2 mmol/L Normal 3.7-5.1 [facility] Comment on above: Order Comment: Speci men Type: BLOOD SPECIMENOrdering Facility: [facility] Address: [address] [place] [address] Performed By: #### 2 4323-8 ####[facility] MILLTOWNCL[facility] [id number] [place] [address] [place] Protein [Mass/Vol] 7.2 g/dL Normal 6.3-8.0 [facility] Comment on above: Order Comment: Speci men Type: BLOOD SPECIMENOrdering Facility: [facility] Address: [address] [place] [address] Performed By: #### 2 4323-8 ####[facility] H[facility]PITALNCLIA [id number] [place] [address] [place] Sodium [Moles/Vol] 138 mmol/L Normal 136-144 [facility] Comment on above: Order Comment: Speci men Type: BLOOD SPECIMENOrdering Facility: [facility] Address: [address] [place] [address] Performed By: #### 2 4323-8 ####[facility] MILLTOWNCLIA [id number] [place] [address] [place] Urea nitrogen [Mass/Vol] 12 mg/dL Normal 7-21 [facility] Comment on above: Order Comment: Speci men Type: BLOOD SPECIMENOrdering Facility: [facility] Address: [address] [place], [place] [address] Performed By: #### 2 4323-8 ####[facility] HOSPITALNCLIA [id number] [place] [id number] [place] CT CHEST WO IVCONon 05-03-19 CT CHEST WO IVCON Normal [facility] CBC W Auto Differential pane l (Bld)on 04-16-2024 Basophils (Bld) [#/Vol] 0.07 10*3/uL Normal <0.11 [facility] Comment on above: Order Comment: Speci men Type: BLOOD SPECIMENOrdering Facility: [facility] Address: [address] [place] [address] Performed By: #### 5 7021-8 ####[facility] DAYTONLIA [id number] [place] [address] [place] Basophils/100 WBC (Bld) 1.1 % Normal [facility] Comment on above: Order Comment: Speci men Type: BLOOD SPECIMENOrdering Facility: [facility] Address: [address] [place] [address] Performed By: #### 5 7021-8 ####[facility] [id number] [place] [address] [place] Differential cell count method Nom (Bld) Auto Normal [facility] Comment on above: Order Comment: Speci men Type: BLOOD SPECIMENOrdering Facility: [facility] Address: [address] [place] [address] Performed By: #### 5 7021-8 ####[facility] DAYTONLIA [id number] [place] [address] [place] Eosinophils (Bld) [#/Vol] 0.21 10*3/uL Normal <0.46 [facility] Comment on above: Order Comment: Speci men Type: BLOOD SPECIMENOrdering Facility: [facility] Address: [address] [place] [address] Performed By: #### 5 7021-8 ####[facility] DAYTONLIA [id number] [place] [address] [place] Eosinophils/100 WBC (Bld) 3.3 % Normal [facility] Comment on above: Order Comment: Speci men Type: BLOOD SPECIMENOrdering Facility: [facility] Address: [address] [place] [address] Performed By: #### 5 7021-8 ####[facility] [id number] [place] [address] [place] Erythrocyte distribution width (RBC) [Ratio] 18.1 % High 11.5-15.0 [facility] Comment on above: Order Comment: Speci men Type: BLOOD SPECIMENOrdering Facility: [facility] Address: [address] [place] [address] Performed By: #### 5 7021-8 ####[facility] [id number] [place] [address] [place] Hematocrit (Bld) [Volume fraction] 34.5 % Low 36.0-46.0 [facility] Comment on above: Order Comment: Speci men Type: BLOOD SPECIMENOrdering Facility: [facility] Address: [address] [place] [address] Performed By: #### 5 7021-8 ####[facility] [id number] [place] [address] [place] Hemoglobin (Bld) [Mass/Vol] 11.8 g/dL Normal 11.5-15.5 [facility] Comment on above: Order Comment: Speci men Type: BLOOD SPECIMENOrdering Facility: [facility] Address: [address] [place], [place] [address] Performed By: #### 5 7021-8 ####[facility] HOSPITALNCLI [id number] [place] [address] [place] Immature granulocytes (Bld) [#/Vol] 10*3/uL Normal <0.10 [facility] Comment on above: Order Comment: Speci men Type: BLOOD SPECIMENOrdering Facility: [facility] Address: [address] [place] [address] Performed By: #### 5 7021-8 ####[facility]NUROM[facility] [id number] [place] [address] [place] Immature granulocytes/100 WBC (Bld) 0.2 % Normal [facility] Comment on above: Order Comment: Speci men Type: BLOOD SPECIMENOrdering Facility: [facility] Address: [address] [place] [address] Performed By: #### 5 7021-8 ####[facility] [id number] [place] [address] [place] Lymphocytes (Bld) [#/Vol] 2.17 10*3/uL Normal 1.00-4.00 [facility] Comment on above: Order Comment: Speci men Type: BLOOD SPECIMENOrdering Facility: [facility] Address: [address] [place] [address] Performed By: #### 5 7021-8 ####[facility] [id number] [place] [address] [place] Lymphocytes/100 WBC (Bld) 34.4 % Normal [facility] Comment on above: Order Comment: Speci men Type: BLOOD SPECIMENOrdering Facility: [facility] Address: [address] [place] [address] Performed By: #### 5 7021-8 ####[facility] DAYTONLIA [id number] [place] [address] [place] MCH (RBC) [Entitic mass] 31.3 pg Normal 26.0-34.0 [facility] Comment on above: Order Comment: Speci men Type: BLOOD SPECIMENOrdering Facility: [facility] Address: [address] [place] [address] Performed By: #### 5 7021-8 ####[facility] H[facility]PITALNCLIA [id number] [place] [address] [place] MCHC (RBC) [Mass/Vol] 34.2 g/dL Normal 30.5-36.0 [facility] Comment on above: Order Comment: Speci men Type: BLOOD SPECIMENOrdering Facility: [facility] Address: [address] [place] [address] Performed By: #### 5 7021-8 ####[facility] [id number] [place] [address] [place] MCV (RBC) [Entitic vol] 91.5 fL Normal 80.0-100.0 [facility] Comment on above: Order Comment: Speci men Type: BLOOD SPECIMENOrdering Facility: [facility] Address: [address] [place] [address] Performed By: #### 5 7021-8 ####[facility] [id number] [place] [address] [place] Monocytes (Bld) [#/Vol] 0.52 10*3/uL Normal <0.87 [facility] Comment on above: Order Comment: Speci men Type: BLOOD SPECIMENOrdering Facility: [facility] Address: [address] [place] [address] Performed By: #### 5 7021-8 ####[facility] [id number] [place] [address] [place] Monocytes/100 WBC (Bld) 8.2 % Normal [facility] Comment on above: Order Comment: Speci men Type: BLOOD SPECIMENOrdering Facility: [facility] Address: [address] [place] [address] Performed By: #### 5 7021-8 ####[facility] HOSPITALNCLIA [id number] [place] [address] [place] Neutrophils (Bld) [#/Vol] 3.33 10*3/uL Normal 1.45-7.50 [facility] Comment on above: Order Comment: Speci men Type: BLOOD SPECIMENOrdering Facility: [facility] Address: [address] [place] [address] Performed By: #### 5 7021-8 ####[facility] [id number] [place] [address] [place] Neutrophils/100 WBC (Bld) 52.8 % Normal [facility] Comment on above: Order Comment: Speci men Type: BLOOD SPECIMENOrdering Facility: [facility] Address: [address] [place] [address] Performed By: #### 5 7021-8 ####[facility] [id number] [place] [address] [place] Nucleated RBC (Bld) [#/Vol] 10*3/uL Normal <0.01 [facility] Comment on above: Order Comment: Speci men Type: BLOOD SPECIMENOrdering Facility: [facility] Address: [address] [place] [address] Performed By: #### 5 7021-8 ####[facility] [id number] [place] [address] [place] Nucleated RBC/100 WBC (Bld) [Ratio] 0.0 /100 WBC Normal [facility] Comment on above: Order Comment: Speci men Type: BLOOD SPECIMENOrdering Facility: [facility] Address: [address] [place] [address] Performed By: #### 5 7021-8 ####[facility] [id number] [place] [address] [place] Platelet mean volume (Bld) [Entitic vol] 8.7 fL Low 9.0-12.7 [facility] Comment on above: Order Comment: Speci men Type: BLOOD SPECIMENOrdering Facility: [facility] Address: [address] [place] [address] Performed By: #### 5 7021-8 ####[facility] MARCONCL[facility] [id number] [place] [address] [place] Platelets (Bld) [#/Vol] 243 10*3/uL Normal 150-400 [facility] Comment on above: Order Comment: Speci men Type: BLOOD SPECIMENOrdering Facility: [facility] Address: [address] [place] [address] Performed By: #### 5 7021-8 ####[facility] BISHNUALLOYNCLIA [id number] [place] [address] [place] RBC (Bld) [#/Vol] 3.77 10*6/uL Low 3.90-5.20 [facility] Comment on above: Order Comment: Speci men Type: BLOOD SPECIMENOrdering Facility: [facility] Address: [address] [place] [address] Performed By: #### 5 7021-8 ####[facility]NUALLOYNCL[facility] [id number] [place] [address] [place] WBC (Bld) [#/Vol] 6.31 10*3/uL Normal 3.70-11.00 [facility] Comment on above: Order Comment: Speci men Type: BLOOD SPECIMENOrdering Facility: [facility] Address: [address] [place] [address] Performed By: #### 5 7021-8 ####[facility]ITALNCLIA [id number] [place] [address] [place] CNOVSPon 04-16-2024 CNOVSP Normal [facility] metabolic 2000 panelon 04-16-2024 Albumin [Mass/Vol] 3.9 g/dL Normal 3.9-4.9 [facility] Comment on above: Order Comment: Speci men Type: BLOOD SPECIMENOrdering Facility: [facility] Address: [address] [place] [address] Performed By: #### 2 4323-8 ####[facility] MILLTOWNCLIA [id number] [place] [address] [place] ALP [Catalytic activity/Vol] 55 U/L Normal 34-123 [facility] Comment on above: Order Comment: Speci men Type: BLOOD SPECIMENOrdering Facility: [facility] Address: [address] [place] [address] Performed By: #### 2 4323-8 ####[facility] MILL[facility]OWNCL[facility] [id number] [place] [address] [place] ALT [Catalytic activity/Vol] 8 U/L Normal 7-38 [facility] Comment on above: Order Comment: Speci men Type: BLOOD SPECIMENOrdering Facility: [facility] Address: [address] [place] [address] Performed By: #### 2 4323-8 ####[facility] MILL[facility]OWNCL[facility] [id number] [place] [address] [place] Anion gap [Moles/Vol] 10 mmol/L Normal 8-15 [facility] Comment on above: Order Comment: Speci men Type: BLOOD SPECIMENOrdering Facility: [facility] Address: [address] [place] [address] Performed By: #### 2 4323-8 ####[facility] MILLTOWNCLIA [id number] [place] [address] [place] AST [Catalytic activity/Vol] 16 U/L Normal 13-35 [facility] Comment on above: Order Comment: Speci men Type: BLOOD SPECIMENOrdering Facility: [facility] Address: [address] [place] [address] Performed By: #### 2 4323-8 ####[facility] MILLTOWNCLIA [id number] [place] [address] [place] Bilirubin [Mass/Vol] 0.2 mg/dL Normal 0.2-1.3 [facility] Comment on above: Order Comment: Speci men Type: BLOOD SPECIMENOrdering Facility: [facility] Address: [address] [place] [address] Performed By: #### 2 4323-8 ####[facility] MILLTOWNCLIA [id number] [place] [address] [place] Calcium [Mass/Vol] 9.4 mg/dL Normal 8.5-10.2 [facility] Comment on above: Order Comment: Speci men Type: BLOOD SPECIMENOrdering Facility: [facility] Address: [address] [place] [address] Performed By: #### 2 4323-8 ####[facility] HOSPITALWKALIELIA [id number] [place] [address] [place] Chloride [Moles/Vol] 100 mmol/L Normal 98-107 [facility] Comment on above: Order Comment: Speci men Type: BLOOD SPECIMENOrdering Facility: [facility] Address: [address] [place] [address] Performed By: #### 2 4323-8 ####[facility] MILL[facility]OWNCL[facility] [id number] [place] [address] [place] CO2 [Moles/Vol] 29 mmol/L Normal 22-30 [facility] Comment on above: Order Comment: Speci men Type: BLOOD SPECIMENOrdering Facility: [facility] Address: [address] [place] [address] Performed By: #### 2 4323-8 ####[facility] MILLTOWNCLIA [id number] [place] [address] [place] Creatinine [Mass/Vol] 0.68 mg/dL Normal 0.58-0.96 [facility] Comment on above: Order Comment: Umesh baugh Type: BLOOD SPECIMENOrdering Facility: [facility] Address: [address] [place] [address] Performed By: #### 2 4323-8 ####[facility] [id number] [place] [address] [place] Creatinine and Glomerular filtration rate.predicted panel (S/P/Bld) 97 mL/min/1.73m??? Normal >=60 [facility] Comment on above: Order Comment: Umesh baugh Type: BLOOD SPECIMENOrdering Facility: [facility] Address: [address] [place] [address] Result Comment: Sana mated Glomerular Filtration Rate [...] actual GFR. Performed By: #### 2 4323-8 ####[facility] [id number] [place] [address] [place] Glucose [Mass/Vol] 107 mg/dL High 74-99 [facility] Comment on above: Order Comment: Umesh baugh Type: BLOOD SPECIMENOrdering Facility: [facility] Address: [address] [place] [address] Result Comment: The [place] [employer] (ADA) provides guidance for cutoff [...] Standards of Medical Care in Diabetes 2016, [place] [employer]. Diabetes Care. 2016.39(Suppl 1). Performed By: #### 2 4323-8 ####[facility] MILLTOWNCLIA [id number] [place] [address] [place] Potassium [Moles/Vol] 3.1 mmol/L Low 3.7-5.1 [facility] Comment on above: Order Comment: Speci men Type: BLOOD SPECIMENOrdering Facility: [facility] Address: [address] [place] [address] Performed By: #### 2 4323-8 ####[facility]ILL[facility]OWNCL[facility] [id number] [place] [address] [place] Protein [Mass/Vol] 6.5 g/dL Normal 6.3-8.0 [facility] Comment on above: Order Comment: Speci men Type: BLOOD SPECIMENOrdering Facility: [facility] Address: [address] [place] [address] Performed By: #### 2 4323-8 ####[facility]ITALNCLIA [id number] [place] [address] [place] Sodium [Moles/Vol] 139 mmol/L Normal 136-144 [facility] Comment on above: Order Comment: Speci men Type: BLOOD SPECIMENOrdering Facility: [facility] Address: [address] [place] [address] Performed By: #### 2 4323-8 ####[facility] MILL[facility]OWNCL[facility] [id number] [place] [address] [place] Urea nitrogen [Mass/Vol] 13 mg/dL Normal 7-21 [facility] Comment on above: Order Comment: Speci men Type: BLOOD SPECIMENOrdering Facility: [facility] Address: [address] [place] [address] Performed By: #### 2 4323-8 ####[facility]ILL[facility]OWNCL[facility] [id number] [address] [place] Absolute neutrophil countOrd ered By: Ankit Marsh on 04-08-2024 Neutrophils (Bld) [#/Vol] 5.4 10*3/uL 2.0-7.7 [facility] Albumin to globulin ratioOrd ered By: Ankit Marsh on 04-08-2024 Albumin/Globulin [Mass ratio] 1.1 {ratio} 0.9-2.4 [facility] Amorphous sediment detection in urine sediment by light microscopyOrdered By: Ankit Marsh on 04-08-2024 Amorphous sediment LM Ql (Urine sed) 1+ [facility] Basophil percentageOrdered B y: Ankit Marsh on 04-08-2024 Basophils/100 WBC (Bld) 0.6 % 0-1 [facility] Bilirubin Test strip Ql (U)O rdered By: Ankit Marsh on 04-08-2024 Bilirubin Ql (U) Negative Negative [facility] Bilirubin, totalOrdered By: Ankit Marsh on 04-08-2024 Bilirubin [Mass/Vol] 0.50 mg/dL 0.20-1.00 [facility] Comment on above: For patients on eltr ombopag therapy, use of Dimension [place] TBIL is not recommended. Blood urea nitrogen (BUN)/cr eatinine ratioOrdered By: Ankit Marsh on 04-08-2024 Urea nitrogen/Creatinine [Mass ratio] 21.3 mg/mg High 10-20 [facility] CBC W/Diff, Automatedon 03-27 Absolute Lymph 1.99 X10 3/uL Normal 0.83-4.51 [facility] Comment on above: Performed By: #### L 500.4050, L501.2450, L100.0100 ####[facility] [address] [place], [address] Absolute Neut 5.4 X10 3/uL Normal 2.0-7.7 [facility] Comment on above: Performed By: #### L 500.4050, L501.2450, L100.0100 ####[facility] [address] [place], [address] Basophils/100 WBC (Bld) 0.6 % Normal 0-1 [facility] Comment on above: Performed By: #### L 500.4050, L501.2450, L100.0100 ####[facility] [address] [place], [address] Eosinophils/100 WBC (Bld) 0.1 % Normal 0-5 [facility] Comment on above: Performed By: #### L 500.4050, L501.2450, L100.0100 ####[facility] [address] [place], [address] Erythrocyte distribution width (RBC) [Ratio] 17.8 % High 11.6-14.6 [facility] Comment on above: Performed By: #### L 500.4050, L501.2450, L100.0100 ####[facility] [address] [place], [address] Hematocrit (Bld) [Volume fraction] 37.2 % Normal 37-47 [facility] Comment on above: Performed By: #### L 500.4050, L501.2450, L100.0100 ####[facility] [address] [place], [address] Hemoglobin (Bld) [Mass/Vol] 13.3 g/dL Normal 12.0-15.0 [facility] Comment on above: Performed By: #### L 500.4050, L501.2450, L100.0100 ####[facility] [address] [place], [address] IG% 0.400 Normal 0.0-0.9 [facility] Comment on above: Result Comment: IG% - Immature Granulocytes (promyelocytes, myelocytes andmetamyelocytes) > 1% indicates that a LEFT SHIFT is Present. Performed By: #### L 500.4050, L501.2450, L100.0100 ####[facility] [address] [place], [address] Lymphocytes/100 WBC (Bld) 25.0 % Normal 19-41 [facility] Comment on above: Performed By: #### L 500.4050, L501.2450, L100.0100 ####[facility] [address] [place], [address] MCH (RBC) [Entitic mass] 31.3 pg Normal 27.0-32.0 [facility] Comment on above: Performed By: #### L 500.4050, L501.2450, L100.0100 ####[facility] [address] [place], [address] MCHC (RBC) [Mass/Vol] 35.8 g/dL Normal 32-36 [facility] Comment on above: Performed By: #### L 500.4050, L501.2450, L100.0100 ####[facility] [address] [place], [address] MCV (RBC) [Entitic vol] 87.5 fL Normal 81-99 [facility] Comment on above: Performed By: #### L 500.4050, L501.2450, L100.0100 ####[facility] [address] [place], [address] Monocytes/100 WBC (Bld) 5.5 % Normal 0-10 [facility] Comment on above: Performed By: #### L 500.4050, L501.2450, L100.0100 ####[facility] [address] [place], [address] Neutrophils/100 WBC (Bld) 68.4 % Normal 47-70 [facility] Comment on above: Performed By: #### L 500.4050, L501.2450, L100.0100 ####[facility] [address] [place], [address] Nucleated RBC (Bld) [#/Vol] 0 10*3/uL Normal 0-5 [facility] Comment on above: Performed By: #### L 500.4050, L501.2450, L100.0100 ####[facility] [address] [place], [address] Platelet mean volume (Bld) [Entitic vol] 8.8 fL Normal 6.2-12.0 [facility] Comment on above: Performed By: #### L 500.4050, L501.2450, L100.0100 ####[facility] [address] [place], [address] Platelets (Bld) [#/Vol] 275 10*3/uL Normal 150-450 [facility] Comment on above: Performed By: #### L 500.4050, L501.2450, L100.0100 ####[facility] [address] [place], [address] RBC (Bld) [#/Vol] 4.25 10*6/uL Normal 4.2-5.4 [facility] Comment on above: Performed By: #### L 500.4050, L501.2450, L100.0100 ####[facility] [address] [place], [address] RDW SD 56.0 fl High 35.1-43.9 [facility] Comment on above: Performed By: #### L 500.4050, L501.2450, L100.0100 ####[facility] [address] [place], [address] WBC (Bld) [#/Vol] 8.0 10*3/uL Normal 4.4-11.0 [facility] Comment on above: Performed By: #### L 500.4050, L501.2450, L100.0100 ####[facility] [address] [place], [address] CNOVon 04-08-2024 CNOV Normal [facility] CNPNon 04-08-2024 CNPN Normal [facility] Carbon dioxide measurementOr dered By: Ankit Marsh on 04-08-2024 CO2 [Moles/Vol] 24.0 mmol/L 21.0-32.0 [facility] Chloride measurementOrdered By: Ankit Marsh on 04-08-2024 Chloride [Moles/Vol] 101 mmol/L 98-107 [facility] Comprehensive Metabolic Prof ilon 04-08-2024 Albumin [Mass/Vol] 3.8 g/dL Normal 3.2-5.0 [facility] Comment on above: Performed By: #### L 500.4050, L501.2450, L100.0100 ####[facility] [address] [place], [address] Albumin/Globulin [Mass ratio] 1.1 {ratio} Normal 0.9-2.4 [facility] Comment on above: Performed By: #### L 500.4050, L501.2450, L100.0100 ####[facility] [address] [place], [address] ALK P 45 U/L Normal 45-117 [facility] Comment on above: Performed By: #### L 500.4050, L501.2450, L100.0100 ####[facility] [address] [place], [address] ALT [Catalytic activity/Vol] 11 U/L Low 13-56 [facility] Comment on above: Performed By: #### L 500.4050, L501.2450, L100.0100 ####[facility] [address] [place], [address] AST [Catalytic activity/Vol] 18 U/L Normal 15-37 [facility] Comment on above: Performed By: #### L 500.4050, L501.2450, L100.0100 ####[facility] [address] [place], [address] Bilirubin [Mass/Vol] 0.50 mg/dL Normal 0.20-1.00 [facility] Comment on above: Result Comment: For patients on eltrombopag therapy, use of Dimension [place] TBIL is not recommended. Performed By: #### L 500.4050, L501.2450, L100.0100 ####[facility] [address] [place], [address] BUN/CRE 21.3 RATIO High 10-20 [facility] Comment on above: Performed By: #### L 500.4050, L501.2450, L100.0100 ####[facility] [address] [place], [address] CA,Total 9.5 mg/dL Normal 8.5-10.1 [facility] Comment on above: Performed By: #### L 500.4050, L501.2450, L100.0100 ####[facility] [address] [place], [address] Chloride [Moles/Vol] 101 mmol/L Normal 98-107 [facility] Comment on above: Performed By: #### L 500.4050, L501.2450, L100.0100 ####[facility] [address] [place], [address] CO2 [Moles/Vol] 24.0 mmol/L Normal 21.0-32.0 [facility] Comment on above: Performed By: #### L 500.4050, L501.2450, L100.0100 ####[facility] [address] [place], [address] Creatinine [Mass/Vol] 0.66 mg/dL Normal 0.55-1.02 [facility] Comment on above: Result Comment: The validity of the calculated GFR GFRAA in patients over70 years has not been determined. Clinical correlation isessential. Performed By: #### L 500.4050, L501.2450, L100.0100 ####[facility] [address] [place], [address] ECRCL 46.69 ml/min Normal [facility] Comment on above: Performed By: #### L 500.4050, L501.2450, L100.0100 ####[facility] [address] [place], [address] EST GFR - AA 116 mL/min Normal >60 [facility] Comment on above: Result Comment: Afri can [place] GFR Calc Performed By: #### L 500.4050, L501.2450, L100.0100 ####[facility] [address] [place], [address] GAP 11 Normal 5-15 [facility] Comment on above: Performed By: #### L 500.4050, L501.2450, L100.0100 ####[facility] [address] [place], [address] GFR/1.73 sq M.predicted among non-blacks MDRD (S/P/Bld) [Vol rate/Area] 96 mL/min/{1.73_m2} Normal >60 [facility] Comment on above: Result Comment: Non- GFR Calc Performed By: #### L 500.4050, L501.2450, L100.0100 ####[facility] [address] [place], [address] Globulin (S) [Mass/Vol] 3.6 g/dL Normal 2.2-4.2 [facility] Comment on above: Performed By: #### L 500.4050, L501.2450, L100.0100 ####[facility] [address] [place], [address] Glucose [Mass/Vol] 113 mg/dL High 74-106 [facility] Comment on above: Result Comment: Fast ing Glucose result from 100 to 125 mg/dLsuggests IMPAIRED HOMEOSTASIS per A.D.A. criteria. Performed By: #### L 500.4050, L501.2450, L100.0100 ####[facility] [address] [place], [address] Potassium [Moles/Vol] 2.7 mmol/L Invalid Interpretation Code 3.5-5.1 [facility] Comment on above: Result Comment: Crit ical Result(s) Called at: 16:35:33 04/08/2024 by: GANESH. Results read back by Shailesh Klein Performed By: #### L 500.4050, L501.2450, L100.0100 ####[facility] [address] [place], [address] Sodium [Moles/Vol] 136 mmol/L Normal 136-145 [facility] Comment on above: Performed By: #### L 500.4050, L501.2450, L100.0100 ####[facility] [address] [place], [address] T PROT 7.4 g/dL Normal 6.4-8.2 [facility] Comment on above: Performed By: #### L 500.4050, L501.2450, L100.0100 ####[facility] [address] [place], [address] Urea nitrogen [Mass/Vol] 14 mg/dL Normal 7-18 [facility] Comment on above: Performed By: #### L 500.4050, L501.2450, L100.0100 ####[facility] [address] [place], [address] Emergency Department Summary on 04-08-2024 Emergency Department Summary Normal [facility] Eosinophil percentageOrdered By: Ankit Marsh on 04-08-2024 Eosinophils/100 WBC (Bld) 0.1 % 0-5 [facility] Epithelial cells.squamous LM Ql (Urine sed)Ordered By: Ankit Marsh on 04-08-2024 Epithelial cells.squamous LM.HPF (Urine sed) [#/Area] 0 /[HPF] 5-10 [facility] Erythrocyte distribution wid th (RBC) [Ratio]Ordered By: Ankit Marsh on 04-08-2024 Erythrocyte distribution width (RBC) [Entitic vol] 56.0 fL High 35.1-43.9 [facility] Erythrocyte distribution wid th ratioOrdered By: Ankit Marsh on 04-08-2024 Erythrocyte distribution width (RBC) [Ratio] 17.8 % High 11.6-14.6 [facility] Estimated glomerular filtrat ion rate (GFR) AmericanOrdered By: Ankit Marsh on 04-08-2024 Estimated GFR (MDRD) Amer 116 mL/min >60 [facility] Comment on above: GFR Calc Estimation of creatinine lupe aranceOrdered By: Ankit Marsh on 04-08-2024 Estimated Creatinine Clearance Calc 46.69 ml/min [facility] Glomerular filtration rate ( GFR) estimationOrdered By: Ankit Marsh on 04-08-2024 Estimated GFR (MDRD) Non-Af Amer 96 mL/min >60 [facility] Comment on above: Non- GFR Calc Glucose Ql (U)Ordered By: Omayra Marsh on 04-08-2024 Urine Glucose (UA) Normal mg/dl Normal [facility] Glucose measurementOrdered B y: Ankit Marsh on 04-08-2024 Glucose [Mass/Vol] 113 mg/dL High 74-106 [facility] Comment on above: Fasting Glucose resu lt from 100 to 125 mg/dL suggests IMPAIRED HOMEOSTASIS per A.D.A. criteria. Hematocrit Auto (Bld) [Volum e fraction]Ordered By: Ankit Marsh on 04-08-2024 Hematocrit (Bld) [Volume fraction] 37.2 % 37-47 [facility] Hemoglobin measurementOrdere d By: Ankti Marsh on 04-08-2024 Hemoglobin (Bld) [Mass/Vol] 13.3 g/dL 12.0-15.0 [facility] Immature granulocytes/100 WB C Auto (Bld)Ordered By: Ankit Marsh on 04-08-2024 Immature granulocytes/100 WBC (Bld) 0.400 % 0.0-0.9 [facility] Comment on above: IG% - Immature Granu locytes (promyelocytes, myelocytes and metamyelocytes) > 1% indicates that a LEFT SHIFT is Present. Ketones Test strip Ql (U)Ord ered By: Ankit Marsh on 04-08-2024 Ketones Ql (U) 15 mg/dl High Negative [facility] Laboratory - Chemistry and C hemistry - challengeOrdered By: Ankit Marsh on 04-08-2024 AST [Catalytic activity/Vol] 18 U/L 15-37 [facility] Lipaseon 04-08-2024 Lipase [Catalytic activity/Vol] 24 U/L Normal 13-75 [facility] Comment on above: Result Comment: Efrem caldwell note:LIPASE revised reference range effective 22.New Lipase methodology. Expected to produce lower valuesthan the previous assay method.NEW Reference Range: 13 - 75 U/L Performed By: #### L 500.4050, L501.2450, L100.0100 ####[facility] [address], [address] Lipase measurementOrdered By : Ankit Marsh on 04-08-2024 Lipase [Catalytic activity/Vol] 24 U/L 13-75 [facility] Comment on above: Please note:LIPASE r evised reference range effective 22. New Lipase methodology. Expected to produce lower values than the previous assay method. NEW Reference Range: 13 - 75 U/L Lymphocytes Auto (Unsp spec) [#/Vol]Ordered By: Ankit Marsh on 04-08-2024 Lymphocytes (Bld) [#/Vol] 1.99 10*3/uL 0.83-4.51 [facility] Lymphocytes/100 WBC Auto (Un sp spec)Ordered By: Ankit Marsh on 04-08-2024 Lymphocytes/100 WBC (Bld) 25.0 % 19-41 [facility] MCV (mean corpuscular volume ) determinationOrdered By: Ankit Marsh on 04-08-2024 MCV (RBC) [Entitic vol] 87.5 fL 81-99 [facility] Magnesiumon 04-08-2024 Magnesium [Mass/Vol] 1.9 mg/dL Normal 1.6-2.6 [facility] Comment on above: Performed By: #### L 501.5200 ####[facility] [address] [place], [address] Magnesium measurementOrdered By: Ankit Marsh on 04-08-2024 Magnesium [Mass/Vol] 1.9 mg/dL 1.6-2.6 [facility] Mean corpuscular hemoglobin (MCH) determinationOrdered By: Ankit Marsh on 04-08-2024 MCH (RBC) [Entitic mass] 31.3 pg 27.0-32.0 [facility] Mean corpuscular hemoglobin concentration (MCHC) determinationOrdered By: Ankit Marsh on 04-08-2024 MCHC (RBC) [Mass/Vol] 35.8 g/dL 32-36 [facility] Mean platelet volume determi nationOrdered By: Ankit Marsh on 04-08-2024 Platelet mean volume (Bld) [Entitic vol] 8.8 fL 6.2-12.0 [facility] Microscopic analysis of urin e for red blood cells (RBC)Ordered By: Ankit Marsh on 04-08-2024 Urine RBC 0-5 SEEN /hpf 0-5 [facility] Monocyte percentageOrdered B y: Ankit Marsh on 04-08-2024 Monocytes/100 WBC (Bld) 5.5 % 0-10 [facility] Mucus LM Ql (Urine sed)Order ed By: Ankit Marsh on 04-08-2024 Mucus Ql (Urine sed) 3+ /hpf [facility] Neutrophil percentageOrdered By: Ankit Marsh on 04-08-2024 Neutrophils/100 WBC (Bld) 68.4 % 47-70 [facility] Nitrite Test strip Ql (U)Ord ered By: Ankit Marsh on 04-08-2024 Nitrite Ql (U) Negative Negative [facility] Nucleated red blood cell per centageOrdered By: Ankit Marsh on 04-08-2024 Nucleated RBC/100 WBC (Bld) [Ratio] 0 % 0-5 [facility] Platelet countOrdered By: Omayra Marsh on 04-08-2024 Platelets (Bld) [#/Vol] 275 10*3/uL 150-450 [facility] Potassium measurementOrdered By: Ankit Marsh on 04-08-2024 Potassium [Moles/Vol] 2.7 mmol/L Low 3.5-5.1 [facility] Comment on above: Critical Result(s) C alled at: 16:35:33 04/08/2024 by: LISBETH KENNEDY. Results read back by Shailesh Klein Protein Test strip Ql (U)Ord ered By: Ankit Marsh on 04-08-2024 Protein Ql (U) 30 mg/dl High Negative [facility] RBC Auto (Bld) [#/Vol]Ordere d By: Ankit Marsh on 04-08-2024 RBC (Bld) [#/Vol] 4.25 10*6/uL 4.2-5.4 [facility] Serum anion gap measurementO rdered By: Ankit Marsh on 04-08-2024 Anion gap [Moles/Vol] 11 mmol/L 5-15 [facility] Serum globulin measurementOr dered By: Ankit Marsh on 04-08-2024 Globulin (S) [Mass/Vol] 3.6 g/dL 2.2-4.2 [facility] Serum or plasma alanine ramirez otransferase (ALT) measurementOrdered By: Ankit Marsh on 04-08-2024 ALT [Catalytic activity/Vol] 11 U/L Low 13-56 [facility] Serum or plasma albumin renetta urement (mass/volume)Ordered By: Ankit Marsh on 04-08-2024 Albumin [Mass/Vol] 3.8 g/dL 3.2-5.0 [facility] Serum or plasma alkaline marquez sphatase measurementOrdered By: Ankit Marsh on 04-08-2024 ALP [Catalytic activity/Vol] 45 U/L 45-117 [facility] Serum or plasma calcium renetta urement (mass/volume)Ordered By: Ankit Marsh on 04-08-2024 Calcium [Mass/Vol] 9.5 mg/dL 8.5-10.1 [facility] Serum or plasma creatinine m easurement (mass/volume)Ordered By: Ankit Marsh on 04-08-2024 Creatinine [Mass/Vol] 0.66 mg/dL 0.55-1.02 [facility] Comment on above: The validity of the calculated GFR & GFRAA in patients over 70 years has not been determined. Clinical correlation is essential. Serum or plasma urea nitroge n measurement (mass/volume)Ordered By: Ankit Marsh on 04-08-2024 Urea nitrogen [Mass/Vol] 14 mg/dL 7-18 [facility] Sodium levelOrdered By: Ankit Marsh on 04-08-2024 Sodium [Moles/Vol] 136 mmol/L 136-145 [facility] Total proteinOrdered By: Clinton Marsh on 04-08-2024 Protein [Mass/Vol] 7.4 g/dL 6.4-8.2 [facility] Transitional cells LM Ql (Ur ine sed)Ordered By: Ankit Marsh on 04-08-2024 Urine Transitional Epithelial Cells 0-5 SEEN /hpf 0-5 [facility] Urinalysis, Completeon 04-08 AMORPHOUS 1+ Normal [facility] Comment on above: Order Comment: COLOR OF URINE MAY AFFECT DIPSTICK RESULTS.CLEAN CATCH Performed By: #### L 400.0001 ####[facility] [address] [place], [address] BACTERIA 2+ /hpf Normal None Seen [facility] Comment on above: Order Comment: COLOR OF URINE MAY AFFECT DIPSTICK RESULTS.CLEAN CATCH Performed By: #### L 400.0001 ####[facility] [address] [place], [address] EPI,SQUAMOUS 0-5 SEEN Normal 5-10 [facility] Comment on above: Order Comment: COLOR OF URINE MAY AFFECT DIPSTICK RESULTS.CLEAN CATCH Performed By: #### L 400.0001 ####[facility] [address] [place], [address] EPI,TRANSITION 0-5 SEEN Normal 0-5 [facility] Comment on above: Order Comment: COLOR OF URINE MAY AFFECT DIPSTICK RESULTS.CLEAN CATCH Performed By: #### L 400.0001 ####[facility] [address] [place], [address] Mucus Ql (Urine sed) 3+ /hpf Normal [facility] Comment on above: Order Comment: COLOR OF URINE MAY AFFECT DIPSTICK RESULTS.CLEAN CATCH Performed By: #### L 400.0001 ####[facility] [address] [place], [address] RBC 0-5 SEEN Normal 0-5 [facility] Comment on above: Order Comment: COLOR OF URINE MAY AFFECT DIPSTICK RESULTS.CLEAN CATCH Performed By: #### L 400.0001 ####[facility] [address] [place], [address] WBC 0-5 SEEN Normal 0-5 [facility] Comment on above: Order Comment: COLOR OF URINE MAY AFFECT DIPSTICK RESULTS.CLEAN CATCH Performed By: #### L 400.0001 ####[facility] [address] [place], [address] Urine blood detectionOrdered By: Ankit Marsh on 04-08-2024 Urine Occult Blood 10 /ul High Negative [facility] Urine clarityOrdered By: Clinton Marsh on 04-08-2024 Clarity (U) Clear Clear [facility] Urine color determinationOrd ered By: Ankit Marsh on 04-08-2024 Color (U) Ellyn Yellow [facility] Urine leukocyte esterase det ection by dipstickOrdered By: Ankit Marsh on 04-08-2024 Leukocyte esterase Test strip Ql (U) 25 /ul High Negative [facility] Urine pHOrdered By: Ankit smart on 04-08-2024 pH (U) 6.0 [pH] 5.0 - 8.0 [facility] Urine sediment bacteria coun t by microscopy (number/high power field)Ordered By: Ankit Marsh on 04-08-2024 Bacteria LM.HPF (Urine sed) [#/Area] 2 /[HPF] None Seen [facility] Urine specific gravity measu rementOrdered By: Ankit Marsh on 04-08-2024 Specific gravity (U) [Rel density] 1.015 1.002-1.03 0 [facility] Urobilinogen Ql (U)Ordered B y: Ankit Marsh on 04-08-2024 Urine Urobilinogen Normal mg/dl Normal [facility] White blood cell (WBC) count Ordered By: Ankit Marsh on 04-08-2024 WBC (Bld) [#/Vol] 8.0 10*3/uL 4.4-11.0 [facility] White blood cell countOrdere d By: Ankit Bondnicoletha on 04-08-2024 Urine WBC 0-5 SEEN /hpf 0-5 [facility] CNPNon 03-25-2024 CNPN Normal [facility] CBC W Auto Differential pane l (Bld)on 03-22-2024 Basophils (Bld) [#/Vol] 0.05 10*3/uL Normal <0.11 [facility] Comment on above: Order Comment: Speci men Type: BLOOD SPECIMENOrdering Facility: [facility] Address: [address] [place] [address] Performed By: #### 5 7021-8 ####[facility] [id number] [place] [address] [place] Basophils/100 WBC (Bld) 1.0 % Normal [facility] Comment on above: Order Comment: Speci men Type: BLOOD SPECIMENOrdering Facility: [facility] Address: [address] [place] [address] Performed By: #### 5 7021-8 ####[facility] [id number] [place] [address] [place] Differential cell count method Nom (Bld) Auto Normal [facility] Comment on above: Order Comment: Speci men Type: BLOOD SPECIMENOrdering Facility: [facility] Address: [address] [place] [address] Performed By: #### 5 7021-8 ####[facility] [id number] [place] [address] [place] Eosinophils (Bld) [#/Vol] 0.10 10*3/uL Normal <0.46 [facility] Comment on above: Order Comment: Speci men Type: BLOOD SPECIMENOrdering Facility: [facility] Address: [address] [place] [address] Performed By: #### 5 7021-8 ####[facility] [id number] [place] [address] [place] Eosinophils/100 WBC (Bld) 2.0 % Normal [facility] Comment on above: Order Comment: Speci men Type: BLOOD SPECIMENOrdering Facility: [facility] Address: [address] [place] [address] Performed By: #### 5 7021-8 ####[facility] [id number] [place] [address] [place] Erythrocyte distribution width (RBC) [Ratio] 17.1 % High 11.5-15.0 [facility] Comment on above: Order Comment: Speci men Type: BLOOD SPECIMENOrdering Facility: [facility] Address: [address] [place] [address] Performed By: #### 5 7021-8 ####[facility] [id number] [place] [address] [place] Hematocrit (Bld) [Volume fraction] 35.1 % Low 36.0-46.0 [facility] Comment on above: Order Comment: Speci men Type: BLOOD SPECIMENOrdering Facility: [facility] Address: [address] [place] [address] Performed By: #### 5 7021-8 ####[facility] [id number] [place] [id number] [place] Hemoglobin (Bld) [Mass/Vol] 11.6 g/dL Normal 11.5-15.5 [facility] Comment on above: Order Comment: Speci men Type: BLOOD SPECIMENOrdering Facility: [facility] Address: [address] [place] [address] Performed By: #### 5 7021-8 ####[facility]ITAL[facility] [id number] [place] [address] [place] Immature granulocytes (Bld) [#/Vol] 10*3/uL Normal <0.10 [facility] Comment on above: Order Comment: Speci men Type: BLOOD SPECIMENOrdering Facility: [facility] Address: [address] [place] [address] Performed By: #### 5 7021-8 ####[facility] DAYTONLIA [id number] [place] [address] [place] Immature granulocytes/100 WBC (Bld) 0.0 % Normal [facility] Comment on above: Order Comment: Speci men Type: BLOOD SPECIMENOrdering Facility: [facility] Address: [address] [place] [address] Performed By: #### 5 7021-8 ####[facility] DAYTONLIA [id number] [place] [address] [place] Lymphocytes (Bld) [#/Vol] 1.80 10*3/uL Normal 1.00-4.00 [facility] Comment on above: Order Comment: Speci men Type: BLOOD SPECIMENOrdering Facility: [facility] Address: [address] [place] [address] Performed By: #### 5 7021-8 ####[facility] HOSPITALNCLIA [id number] [place] [address] [place] Lymphocytes/100 WBC (Bld) 35.4 % Normal [facility] Comment on above: Order Comment: Speci men Type: BLOOD SPECIMENOrdering Facility: [facility] Address: [address] [place] [address] Performed By: #### 5 7021-8 ####[facility] BISHNUALLOYFUAD [id number] [place] [address] [place] MCH (RBC) [Entitic mass] 30.2 pg Normal 26.0-34.0 [facility] Comment on above: Order Comment: Speci men Type: BLOOD SPECIMENOrdering Facility: [facility] Address: [address] [place] [address] Performed By: #### 5 7021-8 ####[facility] [id number] [place] [address] [place] MCHC (RBC) [Mass/Vol] 33.0 g/dL Normal 30.5-36.0 [facility] Comment on above: Order Comment: Speci men Type: BLOOD SPECIMENOrdering Facility: [facility] Address: [address] [place] [address] Performed By: #### 5 7021-8 ####[facility] [id number] [place] [address] [place] MCV (RBC) [Entitic vol] 91.4 fL Normal 80.0-100.0 [facility] Comment on above: Order Comment: Speci men Type: BLOOD SPECIMENOrdering Facility: [facility] Address: [address] [place] [address] Performed By: #### 5 7021-8 ####[facility] [id number] [place] [address] [place] Monocytes (Bld) [#/Vol] 0.41 10*3/uL Normal <0.87 [facility] Comment on above: Order Comment: Speci men Type: BLOOD SPECIMENOrdering Facility: [facility] Address: [address] [place] [address] Performed By: #### 5 7021-8 ####[facility] MILLWNCLIA [id number] [place] [address] [place] Monocytes/100 WBC (Bld) 8.1 % Normal [facility] Comment on above: Order Comment: Speci men Type: BLOOD SPECIMENOrdering Facility: [facility] Address: [address] [place] [address] Performed By: #### 5 7021-8 ####[facility] HOSPITALNCLIA [id number] [place] [address] [place] Neutrophils (Bld) [#/Vol] 2.73 10*3/uL Normal 1.45-7.50 [facility] Comment on above: Order Comment: Speci men Type: BLOOD SPECIMENOrdering Facility: [facility] Address: [address] [place] [address] Performed By: #### 5 7021-8 ####[facility] DAYTONLIA [id number] [place] [address] [place] Neutrophils/100 WBC (Bld) 53.5 % Normal [facility] Comment on above: Order Comment: Speci men Type: BLOOD SPECIMENOrdering Facility: [facility] Address: [address] [place] [address] Performed By: #### 5 7021-8 ####[facility] HOSPITALWNCLIA [id number] [place] [address] [place] Nucleated RBC (Bld) [#/Vol] 10*3/uL Normal <0.01 [facility] Comment on above: Order Comment: Speci men Type: BLOOD SPECIMENOrdering Facility: [facility] Address: [address] [place] [address] Performed By: #### 5 7021-8 ####[facility] HOSPITALNCLIA [id number] [place] [address] [place] Nucleated RBC/100 WBC (Bld) [Ratio] 0.0 /100 WBC Normal [facility] Comment on above: Order Comment: Speci men Type: BLOOD SPECIMENOrdering Facility: [facility] Address: [address] [place] [address] Performed By: #### 5 7021-8 ####[facility] HOSPITALNCA [id number] [place] [address] [place] Platelet mean volume (Bld) [Entitic vol] 8.2 fL Low 9.0-12.7 [facility] Comment on above: Order Comment: Speci men Type: BLOOD SPECIMENOrdering Facility: [facility] Address: [address] [place] [address] Performed By: #### 5 7021-8 ####[facility] HOSPITALNCA [id number] [place] [address] [place] Platelets (Bld) [#/Vol] 208 10*3/uL Normal 150-400 [facility] Comment on above: Order Comment: Speci men Type: BLOOD SPECIMENOrdering Facility: [facility] Address: [address] [place] [address] Performed By: #### 5 7021-8 ####[facility] HOSPITALNCA [id number] [place] [address] [place] RBC (Bld) [#/Vol] 3.84 10*6/uL Low 3.90-5.20 [facility] Comment on above: Order Comment: Speci men Type: BLOOD SPECIMENOrdering Facility: [facility] Address: [address] [place] [address] Performed By: #### 5 7021-8 ####[facility] HOSPITALNCLIA [id number] [place] [address] [place] WBC (Bld) [#/Vol] 5.09 10*3/uL Normal 3.70-11.00 [facility] Comment on above: Order Comment: Speci men Type: BLOOD SPECIMENOrdering Facility: [facility] Address: [address] [place] [address] Performed By: #### 5 7021-8 ####[facility] HOSPITALNCA [id number] [place] [address] [place] Comprehensive metabolic 2000 panelon 03-22-2024 Albumin [Mass/Vol] 4.3 g/dL Normal 3.9-4.9 [facility] Comment on above: Order Comment: Speci men Type: BLOOD SPECIMENOrdering Facility: [facility] Address: [address] [place] [address] Performed By: #### 2 4323-8 ####[facility] [id number] [place] [address] [place] ALP [Catalytic activity/Vol] 55 U/L Normal 34-123 [facility] Comment on above: Order Comment: Speci men Type: BLOOD SPECIMENOrdering Facility: [facility] Address: [address] [place] [address] Performed By: #### 2 4323-8 ####[facility] HOSPITALNCA [id number] [place] [address] [place] ALT [Catalytic activity/Vol] 7 U/L Normal 7-38 [facility] Comment on above: Order Comment: Speci men Type: BLOOD SPECIMENOrdering Facility: [facility] Address: [address] [place] [address] Performed By: #### 2 4323-8 ####[facility] [id number] [place] [address] [place] Anion gap [Moles/Vol] 12 mmol/L Normal 8-15 [facility] Comment on above: Order Comment: Speci men Type: BLOOD SPECIMENOrdering Facility: [facility] Address: [address] [place], [place] [address] Performed By: #### 2 4323-8 ####[facility] MILLTOWNCLIA [id number] [place] [address] [place] AST [Catalytic activity/Vol] 16 U/L Normal 13-35 [facility] Comment on above: Order Comment: Speci men Type: BLOOD SPECIMENOrdering Facility: [facility] Address: [address] [place] [address] Performed By: #### 2 4323-8 ####[facility] HOSPITALWNCLIA [id number] [place] [address] [place] Bilirubin [Mass/Vol] 0.3 mg/dL Normal 0.2-1.3 [facility] Comment on above: Order Comment: Speci men Type: BLOOD SPECIMENOrdering Facility: [facility] Address: [address] [place] [address] Performed By: #### 2 4323-8 ####[facility] DAYTONLIA [id number] [place] [address] [place] Calcium [Mass/Vol] 9.3 mg/dL Normal 8.5-10.2 [facility] Comment on above: Order Comment: Speci men Type: BLOOD SPECIMENOrdering Facility: [facility] Address: [address] [place] [address] Performed By: #### 2 4323-8 ####[facility] MILLTOWNCLIA [id number] [place] [address] [place] Chloride [Moles/Vol] 101 mmol/L Normal 98-107 [facility] Comment on above: Order Comment: Speci men Type: BLOOD SPECIMENOrdering Facility: [facility] Address: [address] [place] [address] Performed By: #### 2 4323-8 ####[facility] HOSPITALNCLIA [id number] [place] [address] [place] CO2 [Moles/Vol] 26 mmol/L Normal 22-30 [facility] Comment on above: Order Comment: Speci men Type: BLOOD SPECIMENOrdering Facility: [facility] Address: [address] [place] [address] Performed By: #### 2 4323-8 ####[facility] [id number] [place] [address] [place] Creatinine [Mass/Vol] 0.73 mg/dL Normal 0.58-0.96 [facility] Comment on above: Order Comment: Speci men Type: BLOOD SPECIMENOrdering Facility: [facility] Address: [address] [place] [address] Performed By: #### 2 4323-8 ####[facility] [id number] [place] [address] [place] Creatinine and Glomerular filtration rate.predicted panel (S/P/Bld) 91 mL/min/1.73m??? Normal >=60 [facility] Comment on above: Order Comment: Abdouli men Type: BLOOD SPECIMENOrdering Facility: [facility] Address: [address] [place] [address] Result Comment: Sana mated Glomerular Filtration Rate [...] actual GFR. Performed By: #### 2 4323-8 ####[facility] HOSPITALNCLIA [id number] [place] [address] [place] Glucose [Mass/Vol] 86 mg/dL Normal 74-99 [facility] Comment on above: Order Comment: Speci men Type: BLOOD SPECIMENOrdering Facility: [facility] Address: [address] [place] [address] Result Comment: The [place] [employer] (ADA) provides guidance for cutoff [...] Standards of Medical Care in Diabetes 2016, [place] [employer]. Diabetes Care. 2016.39(Suppl 1). Performed By: #### 2 4323-8 ####[facility] [id number] [place] [address] [place] Potassium [Moles/Vol] 3.4 mmol/L Low 3.7-5.1 [facility] Comment on above: Order Comment: Speci men Type: BLOOD SPECIMENOrdering Facility: [facility] Address: [address] [place] [address] Performed By: #### 2 4323-8 ####[facility] [id number] [place] [address] [place] Protein [Mass/Vol] 6.9 g/dL Normal 6.3-8.0 [facility] Comment on above: Order Comment: Speci men Type: BLOOD SPECIMENOrdering Facility: [facility] Address: [address] [place] [address] Performed By: #### 2 4323-8 ####[facility] [id number] [place] [address] [place] Sodium [Moles/Vol] 139 mmol/L Normal 136-144 [facility] Comment on above: Order Comment: Speci men Type: BLOOD SPECIMENOrdering Facility: [facility] Address: [address] [place] [address] Performed By: #### 2 4323-8 ####[facility] MILLWNCLIA [id number] [place] [address] [place] Urea nitrogen [Mass/Vol] 12 mg/dL Normal 10-14 [facility] Comment on above: Order Comment: Speci men Type: BLOOD SPECIMENOrdering Facility: [facility] Address: [address] [place] [address] Performed By: #### 2 4323-8 ####[facility] HOSPITALWNCLIA [id number] [place] [address] [place] CNPNon 03-19-2024 CNPN Normal [facility] CT ABD/PEL W IVCONon 024 CT ABD/PEL W IVCON Normal [facility] CNOVon 03-07-2024 CNOV Normal [facility] CNPNon 02-29-2024 CNPN Normal [facility] CNPNon 02-21-2024 CNPN Normal [facility] CNPNon 02-16-2024 CNPN Normal [facility] CBC W Auto Differential pane l (Bld)on 02-15-2024 Basophils (Bld) [#/Vol] 0.09 10*3/uL Normal <0.11 [facility] Comment on above: Order Comment: Speci men Type: BLOOD SPECIMENOrdering Facility: [facility] Address: [address] [place] [address] Performed By: #### 5 7021-8 ####[facility] HOSPITALWNCLIA [id number] [place] [address] [place] Basophils/100 WBC (Bld) 1.1 % Normal [facility] Comment on above: Order Comment: Speci men Type: BLOOD SPECIMENOrdering Facility: [facility] Address: [address] [place], [place] [address] Performed By: #### 5 7021-8 ####[facility] HOSPITALNCLIA [id number] [place] [address] [place] Differential cell count method Nom (Bld) Auto Normal [facility] Comment on above: Order Comment: Speci men Type: BLOOD SPECIMENOrdering Facility: [facility] Address: [address] [place] [address] Performed By: #### 5 7021-8 ####[facility] HOSPITALKALIELetha [id number] [place] [address] [place] Eosinophils (Bld) [#/Vol] 0.29 10*3/uL Normal <0.46 [facility] Comment on above: Order Comment: Speci men Type: BLOOD SPECIMENOrdering Facility: [facility] Address: [address] [place] [address] Performed By: #### 5 7021-8 ####[facility] HOSPITALKALIELetha [id number] [place] [address] [place] Eosinophils/100 WBC (Bld) 3.6 % Normal [facility] Comment on above: Order Comment: Speci men Type: BLOOD SPECIMENOrdering Facility: [facility] Address: [address] [place] [address] Performed By: #### 5 7021-8 ####[facility] [id number] [place] [address] [place] Erythrocyte distribution width (RBC) [Ratio] 15.0 % Normal 11.5-15.0 [facility] Comment on above: Order Comment: Speci men Type: BLOOD SPECIMENOrdering Facility: [facility] Address: [address] [place] [address] Performed By: #### 5 7021-8 ####[facility] HOSPITALNCLI [id number] [place] [address] [place] Hematocrit (Bld) [Volume fraction] 37.6 % Normal 36.0-46.0 [facility] Comment on above: Order Comment: Speci men Type: BLOOD SPECIMENOrdering Facility: [facility] Address: [address] [place] [address] Performed By: #### 5 7021-8 ####[facility] BISHNUCRUZITO [id number] [place] [address] [place] Hemoglobin (Bld) [Mass/Vol] 11.8 g/dL Normal 11.5-15.5 [facility] Comment on above: Order Comment: Speci men Type: BLOOD SPECIMENOrdering Facility: [facility] Address: [address] [place] [address] Performed By: #### 5 7021-8 ####[facility] [id number] [place] [address] [place] Immature granulocytes (Bld) [#/Vol] 10*3/uL Normal <0.10 [facility] Comment on above: Order Comment: Speci men Type: BLOOD SPECIMENOrdering Facility: [facility] Address: [address] [place] [address] Performed By: #### 5 7021-8 ####[facility] [id number] [place] [address] [place] Immature granulocytes/100 WBC (Bld) 0.2 % Normal [facility] Comment on above: Order Comment: Speci men Type: BLOOD SPECIMENOrdering Facility: [facility] Address: [address] [place] [address] Performed By: #### 5 7021-8 ####[facility] HOSPITALNCLIA [id number] [place] [address] [place] Lymphocytes (Bld) [#/Vol] 3.39 10*3/uL Normal 1.00-4.00 [facility] Comment on above: Order Comment: Speci men Type: BLOOD SPECIMENOrdering Facility: [facility] Address: [address] [place] [address] Performed By: #### 5 7021-8 ####[facility] HOSPITALKALIELIA [id number] [place] [address] [place] Lymphocytes/100 WBC (Bld) 42.1 % Normal [facility] Comment on above: Order Comment: Speci men Type: BLOOD SPECIMENOrdering Facility: [facility] Address: [address] [place] [address] Performed By: #### 5 7021-8 ####[facility] HOSPITALKALIELIA [id number] [place] [address] [place] MCH (RBC) [Entitic mass] 28.3 pg Normal 26.0-34.0 [facility] Comment on above: Order Comment: Speci men Type: BLOOD SPECIMENOrdering Facility: [facility] Address: [address] [place] [address] Performed By: #### 5 7021-8 ####[facility] [id number] [place] [address] [place] MCHC (RBC) [Mass/Vol] 31.4 g/dL Normal 30.5-36.0 [facility] Comment on above: Order Comment: Speci men Type: BLOOD SPECIMENOrdering Facility: [facility] Address: [address] [place] [address] Performed By: #### 5 7021-8 ####[facility] [id number] [place] [address] [place] MCV (RBC) [Entitic vol] 90.2 fL Normal 80.0-100.0 [facility] Comment on above: Order Comment: Speci men Type: BLOOD SPECIMENOrdering Facility: [facility] Address: [address] [place], [place] [address] Performed By: #### 5 7021-8 ####[facility] [id number] [place] [id number] [place] Monocytes (Bld) [#/Vol] 0.58 10*3/uL Normal <0.87 [facility] Comment on above: Order Comment: Speci men Type: BLOOD SPECIMENOrdering Facility: [facility] Address: [address] [place] [address] Performed By: #### 5 7021-8 ####[facility] [id number] [place] [address] [place] Monocytes/100 WBC (Bld) 7.2 % Normal [facility] Comment on above: Order Comment: Speci men Type: BLOOD SPECIMENOrdering Facility: [facility] Address: [address] [place] [address] Performed By: #### 5 7021-8 ####[facility] [id number] [place] [address] [place] Neutrophils (Bld) [#/Vol] 3.69 10*3/uL Normal 1.45-7.50 [facility] Comment on above: Order Comment: Speci men Type: BLOOD SPECIMENOrdering Facility: [facility] Address: [address] [place] [address] Performed By: #### 5 7021-8 ####[facility] [id number] [place] [address] [place] Neutrophils/100 WBC (Bld) 45.8 % Normal [facility] Comment on above: Order Comment: Speci men Type: BLOOD SPECIMENOrdering Facility: [facility] Address: [address] [place] [address] Performed By: #### 5 7021-8 ####[facility] [id number] [place] [address] [place] Nucleated RBC (Bld) [#/Vol] 10*3/uL Normal <0.01 [facility] Comment on above: Order Comment: Speci men Type: BLOOD SPECIMENOrdering Facility: [facility] Address: [address] [place] [address] Performed By: #### 5 7021-8 ####[facility]NUCR[facility] [id number] [place] [address] [place] Nucleated RBC/100 WBC (Bld) [Ratio] 0.0 /100 WBC Normal [facility] Comment on above: Order Comment: Speci men Type: BLOOD SPECIMENOrdering Facility: [facility] Address: [address] [place] [address] Performed By: #### 5 7021-8 ####[facility] BISHNUALLOYNCLIA [id number] [place] [address] [place] Platelet mean volume (Bld) [Entitic vol] 9.4 fL Normal 9.0-12.7 [facility] Comment on above: Order Comment: Speci men Type: BLOOD SPECIMENOrdering Facility: [facility] Address: [address] [place] [address] Performed By: #### 5 7021-8 ####[facility] HOSPITALNCCALDERONA [id number] [place] [address] [place] Platelets (Bld) [#/Vol] 407 10*3/uL High 150-400 [facility] Comment on above: Order Comment: Speci men Type: BLOOD SPECIMENOrdering Facility: [facility] Address: [address] [place] [address] Performed By: #### 5 7021-8 ####[facility] HOSPITALNCLIA [id number] [place] [address] [place] RBC (Bld) [#/Vol] 4.17 10*6/uL Normal 3.90-5.20 [facility] Comment on above: Order Comment: Speci men Type: BLOOD SPECIMENOrdering Facility: [facility] Address: [address] [place] [address] Performed By: #### 5 7021-8 ####[facility] MILLTOWNCLIA [id number] [place] [address] [place] WBC (Bld) [#/Vol] 8.06 10*3/uL Normal 3.70-11.00 [facility] Comment on above: Order Comment: Speci men Type: BLOOD SPECIMENOrdering Facility: [facility] Address: [address] [place] [address] Performed By: #### 5 7021-8 ####[facility] MILLTOWNCLIA [id number] [place] [address] [place] Comprehensive metabolic 2000 panelon 02-15-2024 Albumin [Mass/Vol] 4.4 g/dL Normal 3.9-4.9 [facility] Comment on above: Order Comment: Speci men Type: BLOOD SPECIMENOrdering Facility: [facility] Address: [address] [place] [address] Performed By: #### 2 4323-8 ####[facility] HOSPITALWNCLIA [id number] [place] [address] [place] ALP [Catalytic activity/Vol] 98 U/L Normal 34-123 [facility] Comment on above: Order Comment: Speci men Type: BLOOD SPECIMENOrdering Facility: [facility] Address: [address] [place] [address] Performed By: #### 2 4323-8 ####[facility] MILLTOWNCLIA [id number] [place] [address] [place] ALT [Catalytic activity/Vol] 10 U/L Normal 7-38 [facility] Comment on above: Order Comment: Speci men Type: BLOOD SPECIMENOrdering Facility: [facility] Address: [address] [place] [address] Performed By: #### 2 4323-8 ####[facility] MILLTOWNCLIA [id number] [place] [address] [place] Anion gap [Moles/Vol] 14 mmol/L Normal 8-15 [facility] Comment on above: Order Comment: Speci men Type: BLOOD SPECIMENOrdering Facility: [facility] Address: [address] [place] [address] Performed By: #### 2 4323-8 ####[facility] MILLTOWNCLIA [id number] [place] [address] [place] AST [Catalytic activity/Vol] 15 U/L Normal 13-35 [facility] Comment on above: Order Comment: Speci men Type: BLOOD SPECIMENOrdering Facility: [facility] Address: [address] [place] [address] Performed By: #### 2 4323-8 ####[facility] BISHNUKAIDENNCLIA [id number] [place] [address] [place] Bilirubin [Mass/Vol] 0.2 mg/dL Normal 0.2-1.3 [facility] Comment on above: Order Comment: Speci men Type: BLOOD SPECIMENOrdering Facility: [facility] Address: [address] [place] [address] Performed By: #### 2 4323-8 ####[facility] HOSPITALWNCLIA [id number] [place] [address] [place] Calcium [Mass/Vol] 10.1 mg/dL Normal 8.5-10.2 [facility] Comment on above: Order Comment: Speci men Type: BLOOD SPECIMENOrdering Facility: [facility] Address: [address] [place] [address] Performed By: #### 2 4323-8 ####[facility] MILLWNCLIA [id number] [place] [address] [place] Chloride [Moles/Vol] 99 mmol/L Normal 98-107 [facility] Comment on above: Order Comment: Speci men Type: BLOOD SPECIMENOrdering Facility: [facility] Address: [address] [place] [address] Performed By: #### 2 4323-8 ####[facility] LALYWNCLIA [id number] [place] [address] [place] CO2 [Moles/Vol] 24 mmol/L Normal 22-30 [facility] Comment on above: Order Comment: Speci men Type: BLOOD SPECIMENOrdering Facility: [facility] Address: [address] [place] [address] Performed By: #### 2 4323-8 ####[facility]ITALWNCL[facility] [id number] [place] [address] [place] Creatinine [Mass/Vol] 0.57 mg/dL Low 0.58-0.96 [facility] Comment on above: Order Comment: Speci men Type: BLOOD SPECIMENOrdering Facility: [facility] Address: [address] [place] [address] Performed By: #### 2 4323-8 ####[facility] H[facility]PITALNCLIA [id number] [address] Creatinine and Glomerular filtration rate.predicted panel (S/P/Bld) 101 mL/min/1.73m??? Normal >=60 [facility] Comment on above: Order Comment: Speci men Type: BLOOD SPECIMENOrdering Facility: [facility] Address: [address] [place] [address] Result Comment: Sana mated Glomerular Filtration Rate [...] actual GFR. Performed By: #### 2 4323-8 ####[facility] H[facility]ITALWNCLIA [id number] [place] [address] [place] Glucose [Mass/Vol] 97 mg/dL Normal 74-99 [facility] Comment on above: Order Comment: Speci men Type: BLOOD SPECIMENOrdering Facility: [facility] Address: [address] [place], [place] [address] Result Comment: The [place] Diabetes Association (ADA) provides guidance for cutoff [...] Standards of Medical Care in Diabetes 2016, [place] [employer] Association. Diabetes Care. 2016.39(Suppl 1). Performed By: #### 2 4323-8 ####[facility] HOS[facility]ITALWNCLIA [id number] [place] [address] [place] Potassium [Moles/Vol] 4.0 mmol/L Normal 3.7-5.1 [facility] Comment on above: Order Comment: Speci men Type: BLOOD SPECIMENOrdering Facility: [facility] Address: [address] [place] [address] Performed By: #### 2 4323-8 ####[facility]ITALWNCLIA [id number] [place] [address] [place] Protein [Mass/Vol] 7.9 g/dL Normal 6.3-8.0 [facility] Comment on above: Order Comment: Speci men Type: BLOOD SPECIMENOrdering Facility: [facility] Address: [address] [place], [place] [address] Performed By: #### 2 4323-8 ####[facility]ITALWNCLIA [id number] [place] [address] [place] Sodium [Moles/Vol] 137 mmol/L Normal 136-144 [facility] Comment on above: Order Comment: Speci men Type: BLOOD SPECIMENOrdering Facility: [facility] Address: [address] [place] [address] Performed By: #### 2 4323-8 ####[facility]CL[facility] [id number] [place] [address] [place] Urea nitrogen [Mass/Vol] 16 mg/dL Normal 7-21 [facility] Comment on above: Order Comment: Speci men Type: BLOOD SPECIMENOrdering Facility: [facility] Address: [address] [place] [address] Performed By: #### 2 4323-8 ####[facility]NUALLOYNCL[facility] [id number] [place] [address] [place] CNPNon 02-13-2024 CNPN Normal [facility] CNPNon 02-12-2024 CNPN Normal [facility] CBC W/Diff, Automatedon 01-25 Absolute Lymph 2.00 X10 3/uL Normal 0.83-4.51 [facility] Comment on above: Performed By: #### L 500.4050, L501.9520, L501.5200, L100.0100, L503.6030, L503.0105, L506.1000 ####[facility] [address] [place], [address] Absolute Neut 3.7 X10 3/uL Normal 2.0-7.7 [facility] Comment on above: Performed By: #### L 500.4050, L501.9520, L501.5200, L100.0100, L503.6030, L503.0105, L506.1000 ####[facility] [address] [place], [address] Basophils/100 WBC (Bld) 0.9 % Normal 0-1 [facility] Comment on above: Performed By: #### L 500.4050, L501.9520, L501.5200, L100.0100, L503.6030, L503.0105, L506.1000 ####[facility] [address] [place], [address] Eosinophils/100 WBC (Bld) 3.7 % Normal 0-5 [facility] Comment on above: Performed By: #### L 500.4050, L501.9520, L501.5200, L100.0100, L503.6030, L503.0105, L506.1000 ####[facility] [address] [place], [address] Erythrocyte distribution width (RBC) [Ratio] 15.3 % High 11.6-14.6 [facility] Comment on above: Performed By: #### L 500.4050, L501.9520, L501.5200, L100.0100, L503.6030, L503.0105, L506.1000 ####[facility] [address] [place], [address] Hematocrit (Bld) [Volume fraction] 39.3 % Normal 37-47 [facility] Comment on above: Performed By: #### L 500.4050, L501.9520, L501.5200, L100.0100, L503.6030, L503.0105, L506.1000 ####[facility] [address] [place], [address] Hemoglobin (Bld) [Mass/Vol] 12.5 g/dL Normal 12.0-15.0 [facility] Comment on above: Performed By: #### L 500.4050, L501.9520, L501.5200, L100.0100, L503.6030, L503.0105, L506.1000 ####[facility] [address] [place], [address] IG% 0.500 Normal 0.0-0.9 [facility] Comment on above: Result Comment: IG% - Immature Granulocytes (promyelocytes, myelocytes andmetamyelocytes) > 1% indicates that a LEFT SHIFT is Present. Performed By: #### L 500.4050, L501.9520, L501.5200, L100.0100, L503.6030, L503.0105, L506.1000 ####[facility] [address] [place], [address] Lymphocytes/100 WBC (Bld) 31.2 % Normal 19-41 [facility] Comment on above: Performed By: #### L 500.4050, L501.9520, L501.5200, L100.0100, L503.6030, L503.0105, L506.1000 ####[facility] [address] [place], [address] MCH (RBC) [Entitic mass] 28.5 pg Normal 27.0-32.0 [facility] Comment on above: Performed By: #### L 500.4050, L501.9520, L501.5200, L100.0100, L503.6030, L503.0105, L506.1000 ####[facility] [address] [place], [address] MCHC (RBC) [Mass/Vol] 31.8 g/dL Low 32-36 [facility] Comment on above: Performed By: #### L 500.4050, L501.9520, L501.5200, L100.0100, L503.6030, L503.0105, L506.1000 ####[facility] [address] [place], [address] MCV (RBC) [Entitic vol] 89.7 fL Normal 81-99 [facility] Comment on above: Performed By: #### L 500.4050, L501.9520, L501.5200, L100.0100, L503.6030, L503.0105, L506.1000 ####[facility] [address] [place], [address] Monocytes/100 WBC (Bld) 5.9 % Normal 0-10 [facility] Comment on above: Performed By: #### L 500.4050, L501.9520, L501.5200, L100.0100, L503.6030, L503.0105, L506.1000 ####[facility] [address] [place], [address] Neutrophils/100 WBC (Bld) 57.8 % Normal 47-70 [facility] Comment on above: Performed By: #### L 500.4050, L501.9520, L501.5200, L100.0100, L503.6030, L503.0105, L506.1000 ####[facility] [address] [place], [address] Nucleated RBC (Bld) [#/Vol] 0 10*3/uL Normal 0-5 [facility] Comment on above: Performed By: #### L 500.4050, L501.9520, L501.5200, L100.0100, L503.6030, L503.0105, L506.1000 ####[facility] [address] [place], [address] Platelet mean volume (Bld) [Entitic vol] 10.1 fL Normal 6.2-12.0 [facility] Comment on above: Performed By: #### L 500.4050, L501.9520, L501.5200, L100.0100, L503.6030, L503.0105, L506.1000 ####[facility] [address] [place], [address] Platelets (Bld) [#/Vol] 297 10*3/uL Normal 150-450 [facility] Comment on above: Performed By: #### L 500.4050, L501.9520, L501.5200, L100.0100, L503.6030, L503.0105, L506.1000 ####[facility] [address] [place], [address] RBC (Bld) [#/Vol] 4.38 10*6/uL Normal 4.2-5.4 [facility] Comment on above: Performed By: #### L 500.4050, L501.9520, L501.5200, L100.0100, L503.6030, L503.0105, L506.1000 ####[facility] [address] [place], [address] RDW SD 50.6 fl High 35.1-43.9 [facility] Comment on above: Performed By: #### L 500.4050, L501.9520, L501.5200, L100.0100, L503.6030, L503.0105, L506.1000 ####[facility] [address] [place], [address] WBC (Bld) [#/Vol] 6.4 10*3/uL Normal 4.4-11.0 [facility] Comment on above: Performed By: #### L 500.4050, L501.9520, L501.5200, L100.0100, L503.6030, L503.0105, L506.1000 ####[facility] [address] [place], [address] Comprehensive Metabolic Prof hion 02-07-2024 Albumin [Mass/Vol] 3.8 g/dL Normal 3.2-5.0 [facility] Comment on above: Performed By: #### L 500.4050, L501.9520, L501.5200, L100.0100, L503.6030, L503.0105, L506.1000 ####[facility] [address] [place], [address] Albumin/Globulin [Mass ratio] 0.9 {ratio} Normal 0.9-2.4 [facility] Comment on above: Performed By: #### L 500.4050, L501.9520, L501.5200, L100.0100, L503.6030, L503.0105, L506.1000 ####[facility] [address] [place], [address] ALK P 91 U/L Normal 45-117 [facility] Comment on above: Performed By: #### L 500.4050, L501.9520, L501.5200, L100.0100, L503.6030, L503.0105, L506.1000 ####[facility] [address] [place], [address] ALT [Catalytic activity/Vol] 14 U/L Normal 13-56 [facility] Comment on above: Performed By: #### L 500.4050, L501.9520, L501.5200, L100.0100, L503.6030, L503.0105, L506.1000 ####[facility] [address] [place], [address] AST [Catalytic activity/Vol] 21 U/L Normal 15-37 [facility] Comment on above: Performed By: #### L 500.4050, L501.9520, L501.5200, L100.0100, L503.6030, L503.0105, L506.1000 ####[facility] [address] [place], [address] Bilirubin [Mass/Vol] 0.50 mg/dL Normal 0.20-1.00 [facility] Comment on above: Result Comment: For patients on eltrombopag therapy, use of Dimension [place] TBIL is not recommended. Performed By: #### L 500.4050, L501.9520, L501.5200, L100.0100, L503.6030, L503.0105, L506.1000 ####[facility] [address] [place], [address] BUN/CRE 31.4 RATIO High 10-20 [facility] Comment on above: Performed By: #### L 500.4050, L501.9520, L501.5200, L100.0100, L503.6030, L503.0105, L506.1000 ####[facility] [address] [place], [address] CA,Total 9.5 mg/dL Normal 8.5-10.1 [facility] Comment on above: Performed By: #### L 500.4050, L501.9520, L501.5200, L100.0100, L503.6030, L503.0105, L506.1000 ####[facility] [address] [place], [address] Chloride [Moles/Vol] 103 mmol/L Normal 98-107 [facility] Comment on above: Performed By: #### L 500.4050, L501.9520, L501.5200, L100.0100, L503.6030, L503.0105, L506.1000 ####[facility] [address] [place], [address] CO2 [Moles/Vol] 30.0 mmol/L Normal 21.0-32.0 [facility] Comment on above: Performed By: #### L 500.4050, L501.9520, L501.5200, L100.0100, L503.6030, L503.0105, L506.1000 ####[facility] [address] [place], [address] Creatinine [Mass/Vol] 0.57 mg/dL Normal 0.55-1.02 [facility] Comment on above: Result Comment: The validity of the calculated GFR GFRAA in patients over70 years has not been determined. Clinical correlation isessential. Performed By: #### L 500.4050, L501.9520, L501.5200, L100.0100, L503.6030, L503.0105, L506.1000 ####[facility] [address] [place], [address] EST GFR - AA 136 mL/min Normal >60 [facility] Comment on above: Result Comment: Afri can [place] GFR Calc Performed By: #### L 500.4050, L501.9520, L501.5200, L100.0100, L503.6030, L503.0105, L506.1000 ####[facility] [address] [place], [place], [address]) GAP 5 Normal 5-15 [facility] Comment on above: Performed By: #### L 500.4050, L501.9520, L501.5200, L100.0100, L503.6030, L503.0105, L506.1000 ####[facility] [address] [place], [address] GFR/1.73 sq M.predicted among non-blacks MDRD (S/P/Bld) [Vol rate/Area] 112 mL/min/{1.73_m2} Normal >60 [facility] Comment on above: Result Comment: Non- GFR Calc Performed By: #### L 500.4050, L501.9520, L501.5200, L100.0100, L503.6030, L503.0105, L506.1000 ####[facility] [address] [place], [address] Globulin (S) [Mass/Vol] 4.2 g/dL Normal 2.2-4.2 [facility] Comment on above: Performed By: #### L 500.4050, L501.9520, L501.5200, L100.0100, L503.6030, L503.0105, L506.1000 ####[facility] [address] [place], [address] Glucose [Mass/Vol] 115 mg/dL High 74-106 [facility] Comment on above: Result Comment: Fast ing Glucose result from 100 to 125 mg/dLsuggests IMPAIRED HOMEOSTASIS per A.D.A. criteria. Performed By: #### L 500.4050, L501.9520, L501.5200, L100.0100, L503.6030, L503.0105, L506.1000 ####[facility] [address] [place], [address] Potassium [Moles/Vol] 3.4 mmol/L Low 3.5-5.1 [facility] Comment on above: Performed By: #### L 500.4050, L501.9520, L501.5200, L100.0100, L503.6030, L503.0105, L506.1000 ####[facility] [address] [place], [address] Sodium [Moles/Vol] 138 mmol/L Normal 136-145 [facility] Comment on above: Performed By: #### L 500.4050, L501.9520, L501.5200, L100.0100, L503.6030, L503.0105, L506.1000 ####[facility] [address] [place], [address] T PROT 8.0 g/dL Normal 6.4-8.2 [facility] Comment on above: Performed By: #### L 500.4050, L501.9520, L501.5200, L100.0100, L503.6030, L503.0105, L506.1000 ####[facility] [address] [place], [address] Urea nitrogen [Mass/Vol] 18 mg/dL Normal 7-18 [facility] Comment on above: Performed By: #### L 500.4050, L501.9520, L501.5200, L100.0100, L503.6030, L503.0105, L506.1000 ####[facility] [address] [place], [address] Iron+Iron Binding Capacityon 02-07-2024 Iron [Mass/Vol] 68 ug/dL Normal 50-170 [facility] Comment on above: Performed By: #### L 500.4050, L501.9520, L501.5200, L100.0100, L503.6030, L503.0105, L506.1000 ####[facility] [address] [place], [address] IRON SATURATION 15.5 Normal 15.0-55.0 [facility] Comment on above: Performed By: #### L 500.4050, L501.9520, L501.5200, L100.0100, L503.6030, L503.0105, L506.1000 ####[facility] [address] [place], [address] TIBC 438 ug/dL Normal 250-450 [facility] Comment on above: Performed By: #### L 500.4050, L501.9520, L501.5200, L100.0100, L503.6030, L503.0105, L506.1000 ####[facility] [address] [place], [address] Magnesiumon 02-07-2024 Magnesium [Mass/Vol] 2.1 mg/dL Normal 1.6-2.6 [facility] Comment on above: Performed By: #### L 500.4050, L501.9520, L501.5200, L100.0100, L503.6030, L503.0105, L506.1000 ####[facility] [address] [place], [address] Thyroid Stim Hormone (TSH)on 02-07-2024 TSH 1.500 uIU/mL Normal 0.358-3.74 0 [facility] Comment on above: Performed By: #### L 500.4050, L501.9520, L501.5200, L100.0100, L503.6030, L503.0105, L506.1000 ####[facility] [address] [place], [address] Vitamin B12on 02-07-2024 Cobalamin (Vitamin B12) [Mass/Vol] 552 pg/mL Normal 211-911 [facility] Comment on above: Performed By: #### L 500.4050, L501.9520, L501.5200, L100.0100, L503.6030, L503.0105, L506.1000 ####[facility] [address] [place], [address] Vitamin D,25 Hydroxyon 02-06 Vitamin D 25-OH 30.5 ng/mL Normal [facility] Comment on above: Result Comment: Edwige min D 25(OH) Status Range Deficiency <20 ng/mL (50nmol/L) Insufficiency 20 - 30 ng/mL (50 - 75 nmol/L) Sufficiency 30 - 100 ng/mL (75 - 250 nmol/L) Toxicity >100 ng/mL (>250 nmol/L) Performed By: #### L 500.4050, L501.9520, L501.5200, L100.0100, L503.6030, L503.0105, L506.1000 ####[facility] [address] [place], [address] CBC W/Diff, Automatedon 01-25 Absolute Neut Normal 2.0-7.7 [facility] Comment on above: Result Comment: TERELL ENT LEFT, WILL BE BACK MONDAY MORNING FOR LABS. Performed By: #### L 100.0100, L500.4050, L503.6030 ####[facility] [address] [place], [address] HCT Normal 37-47 [facility] Comment on above: Result Comment: TERELL ENT LEFT, WILL BE BACK MONDAY MORNING FOR LABS. Performed By: #### L 100.0100, L500.4050, L503.6030 ####[facility] [address] [place], [address] HGB Normal 12.0-15.0 [facility] Comment on above: Result Comment: TERELL ENT LEFT, WILL BE BACK MONDAY MORNING FOR LABS. Performed By: #### L 100.0100, L500.4050, L503.6030 ####[facility] [address] [place], [address] MCH Normal 27.0-32.0 [facility] Comment on above: Result Comment: TERELL ENT LEFT, WILL BE BACK MONDAY MORNING FOR LABS. Performed By: #### L 100.0100, L500.4050, L503.6030 ####[facility] [address] [place], [address] MCHC Normal 32-36 [facility] Comment on above: Result Comment: TERELL ENT LEFT, WILL BE BACK MONDAY MORNING FOR LABS. Performed By: #### L 100.0100, L500.4050, L503.6030 ####[facility] [address] [place], [address] MCV Normal 81-99 [facility] Comment on above: Result Comment: TERELL ENT LEFT, WILL BE BACK MONDAY MORNING FOR LABS. Performed By: #### L 100.0100, L500.4050, L503.6030 ####[facility] [address] [place], [address] NEUT% Normal 47-70 [facility] Comment on above: Result Comment: TERELL ENT LEFT, WILL BE BACK MONDAY MORNING FOR LABS. Performed By: #### L 100.0100, L500.4050, L503.6030 ####[facility] [address] [place], [address] PLT Normal 150-450 [facility] Comment on above: Result Comment: TERELL ENT LEFT, WILL BE BACK MONDAY MORNING FOR LABS. Performed By: #### L 100.0100, L500.4050, L503.6030 ####[facility] [address] [place], [address] RBC Normal 4.2-5.4 [facility] Comment on above: Result Comment: TERELL ENT LEFT, WILL BE BACK MONDAY MORNING FOR LABS. Performed By: #### L 100.0100, L500.4050, L503.6030 ####[facility] [address] [place], [address] RDW CV Normal 11.6-14.6 [facility] Comment on above: Result Comment: TERELL ENT LEFT, WILL BE BACK MONDAY MORNING FOR LABS. Performed By: #### L 100.0100, L500.4050, L503.6030 ####[facility] [address] [place], [address] RDW SD Normal 35.1-43.9 [facility] Comment on above: Result Comment: TERELL ENT LEFT, WILL BE BACK MONDAY MORNING FOR LABS. Performed By: #### L 100.0100, L500.4050, L503.6030 ####[facility] [address] [place], [address] WBC Normal 4.4-11.0 [facility] Comment on above: Result Comment: TERELL ENT LEFT, WILL BE BACK MONDAY MORNING FOR LABS. Performed By: #### L 100.0100, L500.4050, L503.6030 ####[facility] [address] [place], [address] Comprehensive Metabolic Prof greg 2024 ALB Normal 3.2-5.0 [facility] Comment on above: Result Comment: TERELL ENT LEFT, WILL BE BACK MONNES MORNING FOR LABS. Performed By: #### L 100.0100, L500.4050, L503.6030 ####[facility] [address] [place], [address] ALK P Normal 45-117 [facility] Comment on above: Result Comment: TERELL ENT LEFT, WILL BE BACK MONNES MORNING FOR LABS. Performed By: #### L 100.0100, L500.4050, L503.6030 ####[facility] [address] [place], [address] ALT Normal 13-56 [facility] Comment on above: Result Comment: TERELL ENT LEFT, WILL BE BACK MONNES MORNING FOR LABS. Performed By: #### L 100.0100, L500.4050, L503.6030 ####[facility] [address] [place], [address] AST Normal 15-37 [facility] Comment on above: Result Comment: TERELL ENT LEFT, WILL BE BACK MONNES MORNING FOR LABS. Performed By: #### L 100.0100, L500.4050, L503.6030 ####[facility] [address] [place], [address] BUN Normal 7-18 [facility] Comment on above: Result Comment: TERELL ENT LEFT, WILL BE BACK MONNES MORNING FOR LABS. Performed By: #### L 100.0100, L500.4050, L503.6030 ####[facility] [address] [place], [address] BUN/CRE Normal 10-20 [facility] Comment on above: Result Comment: TERELL ENT LEFT, WILL BE BACK MONNES MORNING FOR LABS. Performed By: #### L 100.0100, L500.4050, L503.6030 ####[facility] [address] [place], [address] CA,Total Normal 8.5-10.1 [facility] Comment on above: Result Comment: TERELL ENT LEFT, WILL BE BACK MONDAY MORNING FOR LABS. Performed By: #### L 100.0100, L500.4050, L503.6030 ####[facility] [address] [place], [address] CL Normal 98-107 [facility] Comment on above: Result Comment: TERELL ENT LEFT, WILL BE BACK MONDAY MORNING FOR LABS. Performed By: #### L 100.0100, L500.4050, L503.6030 ####[facility] [address] [place], [address] CO2 Normal 21.0-32.0 [facility] Comment on above: Result Comment: TERELL ENT LEFT, WILL BE BACK MONDAY MORNING FOR LABS. Performed By: #### L 100.0100, L500.4050, L503.6030 ####[facility] [address] [place], [address] CREAT,SERUM Normal 0.55-1.02 [facility] Comment on above: Result Comment: TERELL ENT LEFT, WILL BE BACK MONDAY MORNING FOR LABS. Performed By: #### L 100.0100, L500.4050, L503.6030 ####[facility] [address] [place], [address] EST GFR Normal >60 [facility] Comment on above: Result Comment: TERELL ENT LEFT, WILL BE BACK MONDAY MORNING FOR LABS. Performed By: #### L 100.0100, L500.4050, L503.6030 ####[facility] [address] [place], [address] EST GFR - AA Normal >60 [facility] Comment on above: Result Comment: TERELL ENT LEFT, WILL BE BACK MONDAY MORNING FOR LABS. Performed By: #### L 100.0100, L500.4050, L503.6030 ####[facility] [address] [place], [address] GAP Normal 5-15 [facility] Comment on above: Result Comment: TERELL ENT LEFT, WILL BE BACK MONDAY MORNING FOR LABS. Performed By: #### L 100.0100, L500.4050, L503.6030 ####[facility] [address] [place], [address] GLU Normal 74-106 [facility] Comment on above: Result Comment: TERELL ENT LEFT, WILL BE BACK MONDAY MORNING FOR LABS. Performed By: #### L 100.0100, L500.4050, L503.6030 ####[facility] [address] [place], [address] Potassium Normal 3.5-5.1 [facility] Comment on above: Result Comment: TERELL ENT LEFT, WILL BE BACK MONDAY MORNING FOR LABS. Performed By: #### L 100.0100, L500.4050, L503.6030 ####[facility] [address] [place], [address] T BILI Normal 0.20-1.00 [facility] Comment on above: Result Comment: TERELL ENT LEFT, WILL BE BACK MONDAY MORNING FOR LABS. Performed By: #### L 100.0100, L500.4050, L503.6030 ####[facility] [address] [place], [address] T PROT Normal 6.4-8.2 [facility] Comment on above: Result Comment: TERELL ENT LEFT, WILL BE BACK MONDAY MORNING FOR LABS. Performed By: #### L 100.0100, L500.4050, L503.6030 ####[facility] [address] [place], [address] Comprehensive Metabolic Profil Normal 136-145 [facility] Comment on above: Result Comment: TERELL ENT LEFT, WILL BE BACK MONDAY MORNING FOR LABS. Performed By: #### L 100.0100, L500.4050, L503.6030 ####[facility] [address] [place], [address] Iron+Iron Binding Capacityon 2024 IRON Normal 50-170 [facility] Comment on above: Result Comment: TERELL ENT LEFT, WILL BE BACK MONDAY MORNING FOR LABS. Performed By: #### L 100.0100, L500.4050, L503.6030 ####[facility] [address] [place], [address] IRON SATURATION Normal 15.0-55.0 [facility] Comment on above: Result Comment: TERELL ENT LEFT, WILL BE BACK MONDAY MORNING FOR LABS. Performed By: #### L 100.0100, L500.4050, L503.6030 ####[facility] [address] [place], [address] TIBC Normal 250-450 [facility] Comment on above: Result Comment: TERELL ENT LEFT, WILL BE BACK MONDAY MORNING FOR LABS. Performed By: #### L 100.0100, L500.4050, L503.6030 ####[facility] [address] [place], [address] CNOVSPon 02-01-2024 CNOVSP Normal [facility] CNPNon 01-31-2024 CNPN Normal [facility] CNOVon 01-29-2024 CNOV Normal [facility] CNPNon 01-26-2024 CNPN Normal [facility] CT CHEST WO IVCONon 01-26-20 CT CHEST WO IVCON Normal [facility] CNPNon 01-19-2024 CNPN Normal [facility] CNOVon 01-18-2024 CNOV Normal [facility] CNPNon 01-18-2024 CNPN Normal [facility] Basic metabolic 2000 panelon 01-08-2024 Anion gap [Moles/Vol] 12 mmol/L Normal 8-15 [facility] Comment on above: Order Comment: Speci men Type: BLOOD SPECIMENOrdering Facility: [facility] Address: [address] [place] [address] Performed By: #### 1 9123-9, 2777-1, 41262-6 ####[facility] LABORATORYCLIA [id number] [place] [id number] [place] Calcium [Mass/Vol] 8.1 mg/dL Low 8.5-10.2 [facility] Comment on above: Order Comment: Speci men Type: BLOOD SPECIMENOrdering Facility: [facility] Address: [address] [place] [address] Performed By: #### 1 9123-9, 2777, 75242-1 ####[facility] LABORATORYCLIA [id number] [place] [address] [place] Chloride [Moles/Vol] 98 mmol/L Normal 98-107 [facility] Comment on above: Order Comment: Speci men Type: BLOOD SPECIMENOrdering Facility: [facility] Address: [address] [place] [address] Performed By: #### 1 9123-9, 2777, 41729-1 ####[facility] LABORATORYCLIA [id number] [place] [id number] [place] CO2 [Moles/Vol] 27 mmol/L Normal 22-30 [facility] Comment on above: Order Comment: Speci men Type: BLOOD SPECIMENOrdering Facility: [facility] Address: [address] [place] [address] Performed By: #### 1 9123-9, 2777, 64525-5 ####[facility] LABORATORYCLIA [id number] [place] [id number] [place] Creatinine [Mass/Vol] 0.41 mg/dL Low 0.58-0.96 [facility] Comment on above: Order Comment: Speci men Type: BLOOD SPECIMENOrdering Facility: [facility] Address: [address] [place] [address] Performed By: #### 1 9123-9, 2777-1, 16104-5 ####[facility]ORATORYCLIA [id number] [place] [id number] [place] Creatinine and Glomerular filtration rate.predicted panel (S/P/Bld) 110 mL/min/1.73m??? Normal >=60 [facility] Comment on above: Order Comment: [facility] Type: BLOOD SPECIMENOrdering Facility: [facility] Address: [address] [place] [address] Result Comment: Sana mated Glomerular Filtration Rate [...] GFR. Performed By: #### 1 9123-9, 2777-1, 24421-1 ####[facility]ORATORYCLIA [id number] [place] [id number] [place] Glucose [Mass/Vol] 96 mg/dL Normal 74-99 [facility] Comment on above: Order Comment: Abdoulkhai baugh Type: BLOOD SPECIMENOrdering Facility: [facility] Address: [address] [place] [address] Result Comment: The [place] [employer] (ADA) provides guidance for cutoff [...] Standards of Medical Care in Diabetes 2016, [place] [employer]. Diabetes Care. 2016.39(Suppl 1). Performed By: #### 1 9123-9, 2777-1, 69687-3 ####[facility]ORATORYCLIA [id number] [place] [id number] [place] Potassium [Moles/Vol] 3.6 mmol/L Low 3.7-5.1 [facility] Comment on above: Order Comment: Speci men Type: BLOOD SPECIMENOrdering Facility: [facility] Address: [address] [place] [address] Performed By: #### 1 9123-9, 2777-1, 73409-0 ####[facility]ORATORYCLIA [id number] [place] [id number] [place] Sodium [Moles/Vol] 137 mmol/L Normal 136-144 [facility] Comment on above: Order Comment: Speci men Type: BLOOD SPECIMENOrdering Facility: [facility] Address: [address] [place] [address] Performed By: #### 1 9123-9, 2777-1, 38243-6 ####[facility]ATORYCLIA [id number] [place] [id number] [place] Urea nitrogen [Mass/Vol] 5 mg/dL Low 7-21 [facility] Comment on above: Order Comment: Speci men Type: BLOOD SPECIMENOrdering Facility: [facility] Address: [address] [place] [address] Performed By: #### 1 9123-9, 2777-, 93329-8 ####[facility]ORATORYCLIA [id number] [place] [id number] [place] CASE MANAGEMon 01-08-2024 CASE MANAGEM Normal [facility] CBC panel Auto (Bld)on 01-07 Erythrocyte distribution width (RBC) [Ratio] 15.0 % Normal 11.5-15.0 [facility] Comment on above: Order Comment: Speci men Type: BLOOD SPECIMENOrdering Facility: [facility] Address: [address] [place] [address] Performed By: #### 5 8410-2 ####[facility]ORATORYCLIA [id number] [address] [place] Hematocrit (Bld) [Volume fraction] 29.9 % Low 36.0-46.0 [facility] Comment on above: Order Comment: Speci men Type: BLOOD SPECIMENOrdering Facility: [facility] Address: [address] [place] [address] Performed By: #### 5 8410-2 ####[facility]ORATORYCLIA [id number] [place] [address] [place] Hemoglobin (Bld) [Mass/Vol] 9.6 g/dL Low 11.5-15.5 [facility] Comment on above: Order Comment: Speci men Type: BLOOD SPECIMENOrdering Facility: [facility] Address: [address] [place] [address] Performed By: #### 5 8410-2 ####[facility] LABORATORYCLIA [id number] [address] [place] MCH (RBC) [Entitic mass] 28.0 pg Normal 26.0-34.0 [facility] Comment on above: Order Comment: Speci men Type: BLOOD SPECIMENOrdering Facility: [facility] Address: [address] [place] [address] Performed By: #### 5 8410-2 ####[facility]ORATORYCLIA [id number] [address] [place] MCHC (RBC) [Mass/Vol] 32.1 g/dL Normal 30.5-36.0 [facility] Comment on above: Order Comment: Speci men Type: BLOOD SPECIMENOrdering Facility: [facility] Address: [address] [place] [address] Performed By: #### 5 8410-2 ####[facility] LABORATORYCLIA [id number] [address] MCV (RBC) [Entitic vol] 87.2 fL Normal 80.0-100.0 [facility] Comment on above: Order Comment: Speci men Type: BLOOD SPECIMENOrdering Facility: [facility] Address: [address] [place] [address] Performed By: #### 5 8410-2 ####[facility]ORATORYCLIA [id number] [place] [id number] [place] Nucleated RBC (Bld) [#/Vol] 10*3/uL Normal <0.01 [facility] Comment on above: Order Comment: Speci men Type: BLOOD SPECIMENOrdering Facility: [facility] Address: [address] [place] [address] Performed By: #### 5 8410-2 ####[facility]ORATORYCLIA [id number] [place] [address] [place] Platelet mean volume (Bld) [Entitic vol] 9.1 fL Normal 9.0-12.7 [facility] Comment on above: Order Comment: Speci men Type: BLOOD SPECIMENOrdering Facility: [facility] Address: [address] [place] [address] Performed By: #### 5 8410-2 ####[facility]ORATORYCLIA [id number] [place] [id number] [place] Platelets (Bld) [#/Vol] 365 10*3/uL Normal 150-400 [facility] Comment on above: Order Comment: Speci men Type: BLOOD SPECIMENOrdering Facility: [facility] Address: [address] [place] [address] Performed By: #### 5 8410-2 ####[facility]ORATORYCLIA [id number] [place] [id number] [place] RBC (Bld) [#/Vol] 3.43 10*6/uL Low 3.90-5.20 [facility] Comment on above: Order Comment: Speci men Type: BLOOD SPECIMENOrdering Facility: [facility] Address: [address] [place] [address] Performed By: #### 5 8410-2 ####[facility]ORATORYCLIA [id number] [place] [id number] [place] WBC (Bld) [#/Vol] 7.11 10*3/uL Normal 3.70-11.00 [facility] Comment on above: Order Comment: Speci men Type: BLOOD SPECIMENOrdering Facility: [facility] Address: [address] [place] [address] Performed By: #### 5 8410-2 ####[facility] LABORATORYCLIA [id number] [place] [id number] [place] CNDSon 01-08-2024 CNDS Normal [facility] Magnesium SerPl-mCncon 01-07 Magnesium [Mass/Vol] 2.1 mg/dL Normal 1.7-2.3 [facility] Comment on above: Order Comment: Speci men Type: BLOOD SPECIMENOrdering Facility: [facility] Address: [address] [place] [address] Performed By: #### 1 9123-9, 2777-1, 79735-1 ####[facility] LABORATORYCLIA [id number] [place] [id number] [place] NURSING PROGon 01-08-2024 NURSING PROG Normal [facility] NURSING PROG Normal [facility] Phosphate SerPl-mCncon 01-07 Phosphate [Mass/Vol] 2.7 mg/dL Normal 2.7-4.8 [facility] Comment on above: Order Comment: Speci men Type: BLOOD SPECIMENOrdering Facility: [facility] Address: [address] [place] [address] Performed By: #### 1 9123-9, 2777-1, 52265-5 ####[facility] LABORATORYCLIA [id number] [place] [id number] [place] Basic metabolic 2000 panelon 01-07-2024 Anion gap [Moles/Vol] 13 mmol/L Normal 8-15 [facility] Comment on above: Order Comment: Speci men Type: BLOOD SPECIMENOrdering Facility: [facility] Address: [address] [place] [address] Performed By: #### 1 9123-9, 2777-1, 65003-2 ####[facility] LABORATORYCLIA [id number] [place] [id number] [place] Calcium [Mass/Vol] 8.2 mg/dL Low 8.5-10.2 [facility] Comment on above: Order Comment: Speci men Type: BLOOD SPECIMENOrdering Facility: [facility] Address: [address] [place] [address] Performed By: #### 1 9123-9, 2777, 05807-0 ####[facility]ORATORYCLIA [id number] [place] [id number] [place] Chloride [Moles/Vol] 97 mmol/L Low 98-107 [facility] Comment on above: Order Comment: Speci men Type: BLOOD SPECIMENOrdering Facility: [facility] Address: [address] [place] [address] Performed By: #### 1 9123-9, 27709-24, 22936-6 ####[facility]ORATORYCLIA [id number] [place] [address] [place] CO2 [Moles/Vol] 29 mmol/L Normal 22-30 [facility] Comment on above: Order Comment: Speci men Type: BLOOD SPECIMENOrdering Facility: [facility] Address: [address] [place] [address] Performed By: #### 1 9123-9, 27709-24, ####[facility]ORATORYCLIA [id number] [place] [address] [place] Creatinine [Mass/Vol] 0.53 mg/dL Low 0.58-0.96 [facility] Comment on above: Order Comment: Speci men Type: BLOOD SPECIMENOrdering Facility: [facility] Address: [address] [place] [address] Performed By: #### 1 9123-9, 27709-24, 19102-8 ####[facility]ORATORYCLIA [id number] [place] [id number] [place] Creatinine and Glomerular filtration rate.predicted panel (S/P/Bld) 103 mL/min/1.73m??? Normal >=60 [facility] Comment on above: Order Comment: Speci men Type: BLOOD SPECIMENOrdering Facility: [facility] Address: [address] [place] [address] Result Comment: Sana mated Glomerular Filtration Rate [...] GFR. Performed By: #### 1 9123-9, 2777-1, 99252-1 ####[facility]ORATORYCLIA [id number] [place] [id number] [place] Glucose [Mass/Vol] 66 mg/dL Low 74-99 [facility] Comment on above: Order Comment: Umesh baugh Type: BLOOD SPECIMENOrdering Facility: [facility] Address: [address] [place] [address] Result Comment: The [place] Diabetes [employer] (ADA) provides guidance for cutoff [...] Standards of Medical Care in Diabetes 2016, [place] [employer]. Diabetes Care. 2016.39(Suppl 1). Performed By: #### 1 9123-9, 2777-, 25699-3 ####[facility]ORATORYCLIA [id number] [place] [id number] [place] Potassium [Moles/Vol] 3.6 mmol/L Low 3.7-5.1 [facility] Comment on above: Order Comment: Umesh baugh Type: BLOOD SPECIMENOrdering Facility: [facility] Address: [address] [place] [address] Performed By: #### 1 9123-9, 2777-, 32544-0 ####[facility] LABORATORYCLIA [id number] [place] [address] [place] Sodium [Moles/Vol] 139 mmol/L Normal 136-144 [facility] Comment on above: Order Comment: Speci men Type: BLOOD SPECIMENOrdering Facility: [facility] Address: [address] [place] [address] Performed By: #### 1 9123-9, 2777-1, 08679-7 ####[facility]ORATORYCLIA [id number] [place] [id number] [place] Urea nitrogen [Mass/Vol] 6 mg/dL Low 7-21 [facility] Comment on above: Order Comment: Speci men Type: BLOOD SPECIMENOrdering Facility: [facility] Address: [address] [place] [address] Performed By: #### 1 9123-9, 2777-, 93789-7 ####[facility]ORATORYCLIA [id number] [address] CBC panel Auto (Bld)on 01-06 Erythrocyte distribution width (RBC) [Ratio] 14.8 % Normal 11.5-15.0 [facility] Comment on above: Order Comment: Speci men Type: BLOOD SPECIMENOrdering Facility: [facility] Address: [address] [place] [address] Performed By: #### 5 8410-2 ####[facility]ATORYCLIA [id number] [place] [id number] [place] Hematocrit (Bld) [Volume fraction] 25.5 % Low 36.0-46.0 [facility] Comment on above: Order Comment: Speci men Type: BLOOD SPECIMENOrdering Facility: [facility] Address: [address] [place] [address] Performed By: #### 5 8410-2 ####[facility]ORATORYCLIA [id number] [place] [id number] [facility] [place] Hemoglobin (Bld) [Mass/Vol] 8.3 g/dL Low 11.5-15.5 [facility] Comment on above: Order Comment: Speci men Type: BLOOD SPECIMENOrdering Facility: [facility] Address: [address] [place] [address] Performed By: #### 5 8410-2 ####[facility] LABORATORYCLIA [id number] [address] [place] [facility] MCH (RBC) [Entitic mass] 27.9 pg Normal 26.0-34.0 [facility] Comment on above: Order Comment: Speci men Type: BLOOD SPECIMENOrdering Facility: [facility] Address: [address] [place] [address] Performed By: #### 5 8410-2 ####[facility] LABORATORYCLIA [id number] [address] [place] [facility] MCHC (RBC) [Mass/Vol] 32.5 g/dL Normal 30.5-36.0 [facility] Comment on above: Order Comment: Speci men Type: BLOOD SPECIMENOrdering Facility: [facility] Address: [address] [place] [address] Performed By: #### 5 8410-2 ####[facility]ATORYCLIA [id number] [address] [place] MCV (RBC) [Entitic vol] 85.6 fL Normal 80.0-100.0 [facility] Comment on above: Order Comment: Speci men Type: BLOOD SPECIMENOrdering Facility: [facility] Address: [address] [place] [address] Performed By: #### 5 8410-2 ####[facility] LABORATORYCLIA [id number] [address] Nucleated RBC (Bld) [#/Vol] 10*3/uL Normal <0.01 [facility] Comment on above: Order Comment: Speci men Type: BLOOD SPECIMENOrdering Facility: [facility] Address: [address] [place] [address] Performed By: #### 5 8410-2 ####[facility] LABORATORYCLIA [id number] [place] [address] [place] Platelet mean volume (Bld) [Entitic vol] 9.0 fL Normal 9.0-12.7 [facility] Comment on above: Order Comment: Speci men Type: BLOOD SPECIMENOrdering Facility: [facility] Address: [address] [place] [address] Performed By: #### 5 8410-2 ####[facility]ORATORYCLIA [id number] [place] [id number] [place] Platelets (Bld) [#/Vol] 306 10*3/uL Normal 150-400 [facility] Comment on above: Order Comment: Speci men Type: BLOOD SPECIMENOrdering Facility: [facility] Address: [address] [place] [address] Performed By: #### 5 8410-2 ####[facility]ORATORYCLIA [id number] [place] [address] [place] RBC (Bld) [#/Vol] 2.98 10*6/uL Low 3.90-5.20 [facility] Comment on above: Order Comment: Speci men Type: BLOOD SPECIMENOrdering Facility: [facility] Address: [address] [place] [address] Performed By: #### 5 8410-2 ####[facility]ATORYCLIA [id number] [place] [id number] [place] WBC (Bld) [#/Vol] 8.02 10*3/uL Normal 3.70-11.00 [facility] Comment on above: Order Comment: Speci men Type: BLOOD SPECIMENOrdering Facility: [facility] Address: [address] [place] [address] Performed By: #### 5 8410-2 ####[facility]ATORYCLIA [id number] [place] [id number] [place] Magnesium SerPl-mCncon 01-06 Magnesium [Mass/Vol] 1.9 mg/dL Normal 1.7-2.3 [facility] Comment on above: Order Comment: Speci men Type: BLOOD SPECIMENOrdering Facility: [facility] Address: [address] [place] [address], [place] [address] Performed By: #### 1 9123-9, 2777-1, 16795-1 ####[facility] LABORATORYCLIA [id number] [place] [id number] [place] Phosphate SerPl-mCncon 01-06 Phosphate [Mass/Vol] 4.1 mg/dL Normal 2.7-4.8 [facility] Comment on above: Order Comment: Speci men Type: BLOOD SPECIMENOrdering Facility: [facility] Address: [place] [address] Performed By: #### 1 9123-9, 2777-1, 73469-6 ####[facility] LABORATORYCLIA [id number] [place] [id number] [place] Basic metabolic 2000 panelon 01-06-2024 Anion gap [Moles/Vol] 8 mmol/L Normal 8-15 [facility] Comment on above: Order Comment: Speci men Type: BLOOD SPECIMENOrdering Facility: [facility] Address: [place] [address] Performed By: #### 1 9123-9, 2771, 23148-6 ####[facility] LABORATORYCLIA [id number] [place] [id number] [place] Calcium [Mass/Vol] 8.3 mg/dL Low 8.5-10.2 [facility] Comment on above: Order Comment: Speci men Type: BLOOD SPECIMENOrdering Facility: [facility] Address: [address] [place] [place] [address] Performed By: #### 1 9123-9, 2777-1, 65229-0 ####[facility] LABORATORYCLIA [id number] [place] [id number] [place] Chloride [Moles/Vol] 102 mmol/L Normal 98-107 [facility] Comment on above: Order Comment: Speci men Type: BLOOD SPECIMENOrdering Facility: [facility] Address: [address] [place] [address] Performed By: #### 1 9123-9, 2777-1, 76862-9 ####[facility]ATORYCLIA [id number] [place] [id number] [place] CO2 [Moles/Vol] 31 mmol/L High 22-30 [facility] Comment on above: Order Comment: Speci men Type: BLOOD SPECIMENOrdering Facility: [facility] Address: [address] [place] [address] Performed By: #### 1 9123-9, 2777, ####[facility]ATORYCLIA [id number] [place] [id number] [place] Creatinine [Mass/Vol] 0.57 mg/dL Low 0.58-0.96 [facility] Comment on above: Order Comment: Abdouli men Type: BLOOD SPECIMENOrdering Facility: [facility] Address: [address] [place] [address] Performed By: #### 1 9123-9, 27709-24, ####[facility]ORATORYCLIA [id number] [place] [address] [place] Creatinine and Glomerular filtration rate.predicted panel (S/P/Bld) 102 mL/min/1.73m??? Normal >=60 [facility] Comment on above: Order Comment: Umesh baugh Type: BLOOD SPECIMENOrdering Facility: [facility] Address: [address] [place] [address] Result Comment: Sana mated Glomerular Filtration Rate [...] actual GFR. Performed By: #### 1 9123-9, 2777, 87109-0 ####[facility]ATORYCLIA [id number] [place] [id number] [place] Glucose [Mass/Vol] 80 mg/dL Normal 74-99 [facility] Comment on above: Order Comment: Speci men Type: BLOOD SPECIMENOrdering Facility: [facility] Address: [address] [place] [address] Result Comment: The [place] [employer] (ADA) provides guidance for cutoff [...] Standards of Medical Care in Diabetes 2016, [place] [employer]. Diabetes Care. 2016.39(Suppl 1). Performed By: #### 1 9123-9, 2777-, 42109-7 ####[facility] LABORATORYCLIA [id number] [place] [address] [place] Potassium [Moles/Vol] 4.6 mmol/L Normal 3.7-5.1 [facility] Comment on above: Order Comment: Speci lupis Type: BLOOD SPECIMENOrdering Facility: [facility] Address: [address] [place] [id number] Performed By: #### 1 9123-9, 2777-, 34365-5 ####[facility] LABORATORYCLIA [id number] [place] [id number] [place] Sodium [Moles/Vol] 141 mmol/L Normal 136-144 [facility] Comment on above: Order Comment: Speci men Type: BLOOD SPECIMENOrdering Facility: [facility] Address: [address] [place] [id number] Performed By: #### 1 9123-9, 2777, 68297-2 ####[facility] LABORATORYCLIA [id number] [place] [id number] [place] Urea nitrogen [Mass/Vol] 8 mg/dL Normal 7-21 [facility] Comment on above: Order Comment: Speci men Type: BLOOD SPECIMENOrdering Facility: [facility] Address: [address] [place] [address] Performed By: #### 1 9123-9, 2777-1, 52111-1 ####[facility] LABORATORYCLIA [id number] [place] [id number] [facility] CBC panel Auto (Bld)on 01-05 Erythrocyte distribution width (RBC) [Ratio] 15.2 % High 11.5-15.0 [facility] Comment on above: Order Comment: Speci men Type: BLOOD SPECIMENOrdering Facility: [facility] Address: [address] [place] [address] Performed By: #### 5 8410-2 ####[facility] LABORATORYCLIA [id number] [address] Hematocrit (Bld) [Volume fraction] 24.0 % Low 36.0-46.0 [facility] Comment on above: Order Comment: Speci men Type: BLOOD SPECIMENOrdering Facility: [facility] Address: [address] [place] [address] Performed By: #### 5 8410-2 ####[facility] LABORATORYCLIA [id number] [address] Hemoglobin (Bld) [Mass/Vol] 7.7 g/dL Low 11.5-15.5 [facility] Comment on above: Order Comment: Speci men Type: BLOOD SPECIMENOrdering Facility: [facility] Address: [address] [place] [address] Performed By: #### 5 8410-2 ####[facility] LABORATORYCLIA [id number] [place] [id number] [facility] [place] MCH (RBC) [Entitic mass] 28.0 pg Normal 26.0-34.0 [facility] Comment on above: Order Comment: Speci men Type: BLOOD SPECIMENOrdering Facility: [facility] Address: [address] [place] [address] Performed By: #### 5 8410-2 ####[facility] LABORATORYCLIA [id number] [address] [place] MCHC (RBC) [Mass/Vol] 32.1 g/dL Normal 30.5-36.0 [facility] Comment on above: Order Comment: Speci men Type: BLOOD SPECIMENOrdering Facility: [facility] Address: [address] [place] [address] Performed By: #### 5 8410-2 ####[facility] LABORATORYCLIA [id number] [place] [id number] [place] MCV (RBC) [Entitic vol] 87.3 fL Normal 80.0-100.0 [facility] Comment on above: Order Comment: Speci men Type: BLOOD SPECIMENOrdering Facility: [facility] Address: [address] [place] [address] Performed By: #### 5 8410-2 ####[facility] LABORATORYCLIA [id number] [place] [address] [place] Nucleated RBC (Bld) [#/Vol] 10*3/uL Normal <0.01 [facility] Comment on above: Order Comment: Speci men Type: BLOOD SPECIMENOrdering Facility: [facility] Address: [address] [place] [address] Performed By: #### 5 8410-2 ####EMMANUEL LABORATORYCLIA [id number] [place] [address] [place] Platelet mean volume (Bld) [Entitic vol] 9.1 fL Normal 9.0-12.7 [facility] Comment on above: Order Comment: Speci men Type: BLOOD SPECIMENOrdering Facility: [facility] Address: [address] [place] [address] Performed By: #### 5 8410-2 ####EMMANUEL LABORATORYCLIA [id number] [place] [address] [place] Platelets (Bld) [#/Vol] 265 10*3/uL Normal 150-400 [facility] Comment on above: Order Comment: Speci men Type: BLOOD SPECIMENOrdering Facility: [facility] Address: [address] [place] [address] Performed By: #### 5 8410-2 ####EMMANUEL LABORATORYCLIA [id number] [place] [id number] [place] RBC (Bld) [#/Vol] 2.75 10*6/uL Low 3.90-5.20 [facility] Comment on above: Order Comment: Speci men Type: BLOOD SPECIMENOrdering Facility: [facility] Address: [address] [place] [address] Performed By: #### 5 8410-2 ####EMMANUEL LABORATORYCLIA [id number] [place] [id number] [place] WBC (Bld) [#/Vol] 9.18 10*3/uL Normal 3.70-11.00 [facility] Comment on above: Order Comment: Speci men Type: BLOOD SPECIMENOrdering Facility: [facility] Address: [address] [place] [address] Performed By: #### 5 8410-2 ####EMMANUEL LABORATORYCLIA [id number] [place] [id number] [facility] Magnesium SerPl-mCncon 01-05 Magnesium [Mass/Vol] 1.6 mg/dL Low 1.7-2.3 [facility] Comment on above: Order Comment: Speci men Type: BLOOD SPECIMENOrdering Facility: [facility] Address: [address] [place] [address] Performed By: #### 1 9123-9, 2777-1, 53263-0 ####EMMANUEL LABORATORYCLIA [id number] [place] [id number] [place] Phosphate SerPl-mCncon 01-05 Phosphate [Mass/Vol] 4.3 mg/dL Normal 2.7-4.8 [facility] Comment on above: Order Comment: Speci men Type: BLOOD SPECIMENOrdering Facility: [facility] Address: [address] [place] [address] Performed By: #### 1 9123-9, 2777-1, 97658-7 ####EMMANUEL LABORATORYCLIA [id number] [place] [id number] [place] Basic metabolic 2000 panelon 01-05-2024 Anion gap [Moles/Vol] 9 mmol/L Normal 8-15 [facility] Comment on above: Order Comment: Speci men Type: BLOOD SPECIMENOrdering Facility: [facility] Address: [address] [place] [address] Performed By: #### 2 4321-2, 2776-03, ####EMMANUEL LABORATORYCLIA [id number] [place] [id number] [place] Calcium [Mass/Vol] 8.6 mg/dL Normal 8.5-10.2 [facility] Comment on above: Order Comment: Speci men Type: BLOOD SPECIMENOrdering Facility: [facility] Address: [address] [place] [address] Performed By: #### 2 4321-2, 2776-03, ####EMMANUEL LABORATORYCLIA [id number] [place] [address] [place] Chloride [Moles/Vol] 100 mmol/L Normal 98-107 [facility] Comment on above: Order Comment: Speci men Type: BLOOD SPECIMENOrdering Facility: [facility] Address: [address] [place] [address] Performed By: #### 2 4321-2, 2776-03, ####EMMANUEL LABORATORYCLIA [id number] [place] [id number] [place] CO2 [Moles/Vol] 31 mmol/L High 22-30 [facility] Comment on above: Order Comment: Speci men Type: BLOOD SPECIMENOrdering Facility: [facility] Address: [address] [place] [address] Performed By: #### 2 4321-2, 2776-03, ####EMMANUEL LABORATORYCLIA [id number] [place] [id number] [place] Creatinine [Mass/Vol] 0.61 mg/dL Normal 0.58-0.96 [facility] Comment on above: Order Comment: Speci men Type: BLOOD SPECIMENOrdering Facility: [facility] Address: [address] [place] [address] Performed By: #### 2 4321-2, 2777-1, ####DENTON LABORATORYCLIA [id number] [place] [id number] [place] Creatinine and Glomerular filtration rate.predicted panel (S/P/Bld) 100 mL/min/1.73m??? Normal >=60 [facility] Comment on above: Order Comment: Umesh baugh Type: BLOOD SPECIMENOrdering Facility: [facility] Address: [address] [place] [address] Result Comment: Sana mated Glomerular Filtration Rate [...] actual GFR. Performed By: #### 2 4321-2, 2777-, ####DENTON LABORATORYCLIA [id number] [place] [id number] [place] Glucose [Mass/Vol] 84 mg/dL Normal 74-99 [facility] Comment on above: Order Comment: Umesh baugh Type: BLOOD SPECIMENOrdering Facility: [facility] Address: [address] [place] [address] Result Comment: The [place] [employer] (ADA) provides guidance for cutoff [...] Standards of Medical Care in Diabetes 2016, [place] [employer]. Diabetes Care. 2016.39(Suppl 1). Performed By: #### 2 4321-2, 2776-03, ####DENTON LABORATORYCLIA [id number] [place] [address] [place] Potassium [Moles/Vol] 4.2 mmol/L Normal 3.7-5.1 [facility] Comment on above: Order Comment: Speci men Type: BLOOD SPECIMENOrdering Facility: [facility] Address: [address] [place] [address] Performed By: #### 2 4321-2, 2776-, ####DENTON LABORATORYCLIA [id number] [place] [id number] [place] Sodium [Moles/Vol] 140 mmol/L Normal 136-144 [facility] Comment on above: Order Comment: Speci men Type: BLOOD SPECIMENOrdering Facility: [facility] Address: [address] [place] [address] Performed By: #### 2 4321-2, 2776-03, ####DENTON LABORATORYCLIA [id number] [place] [id number] [place] Urea nitrogen [Mass/Vol] 13 mg/dL Normal 7-21 [facility] Comment on above: Order Comment: Speci men Type: BLOOD SPECIMENOrdering Facility: [facility] Address: [address] [place] [address] Performed By: #### 2 4321-2, 2776-03, ####DENTON LABORATORYCLIA [id number] [place] [id number] [place] CASE MANAGEMon 01-05-2024 CASE MANAGEM Normal [facility] CBC panel Auto (Bld)on 01-04 Erythrocyte distribution width (RBC) [Ratio] 15.2 % High 11.5-15.0 [facility] Comment on above: Order Comment: Speci men Type: BLOOD SPECIMENOrdering Facility: [facility] Address: [address] [place] [address] Performed By: #### 5 8410-2 ####DENTON LABORATORYCLIA [id number] [place] [address] [place] Hematocrit (Bld) [Volume fraction] 25.2 % Low 36.0-46.0 [facility] Comment on above: Order Comment: Speci men Type: BLOOD SPECIMENOrdering Facility: [facility] Address: [address] [place] [address] Performed By: #### 5 8410-2 ####EMMANUEL LABORATORYCLIA [id number] [address] [place] Hemoglobin (Bld) [Mass/Vol] 8.3 g/dL Low 11.5-15.5 [facility] Comment on above: Order Comment: Speci men Type: BLOOD SPECIMENOrdering Facility: [facility] Address: [address] [place] [address] Performed By: #### 5 8410-2 ####EMMANUEL LABORATORYCLIA [id number] [address] [place] MCH (RBC) [Entitic mass] 28.1 pg Normal 26.0-34.0 [facility] Comment on above: Order Comment: Speci men Type: BLOOD SPECIMENOrdering Facility: [facility] Address: [address] [place] [address] Performed By: #### 5 8410-2 ####EMMANUEL LABORATORYCLIA [id number] [address] [place] MCHC (RBC) [Mass/Vol] 32.9 g/dL Normal 30.5-36.0 [facility] Comment on above: Order Comment: Speci men Type: BLOOD SPECIMENOrdering Facility: [facility] Address: [address] [place] [address] Performed By: #### 5 8410-2 ####EMMANUEL LABORATORYCLIA [id number] [address] [place] MCV (RBC) [Entitic vol] 85.4 fL Normal 80.0-100.0 [facility] Comment on above: Order Comment: Speci men Type: BLOOD SPECIMENOrdering Facility: [facility] Address: [address] [place] [address] Performed By: #### 5 8410-2 ####DENTON LABORATORYCLIA [id number] [place] [id number] [place] Nucleated RBC (Bld) [#/Vol] 10*3/uL Normal <0.01 [facility] Comment on above: Order Comment: Speci men Type: BLOOD SPECIMENOrdering Facility: [facility] Address: [address] [place] [address] Performed By: #### 5 8410-2 ####DENTON LABORATORYCLIA [id number] [place] [id number] [place] Platelet mean volume (Bld) [Entitic vol] 9.0 fL Normal 9.0-12.7 [facility] Comment on above: Order Comment: Speci men Type: BLOOD SPECIMENOrdering Facility: [facility] Address: [address] [place] [address] Performed By: #### 5 8410-2 ####DENTON LABORATORYCLIA [id number] [place] [address] [place] Platelets (Bld) [#/Vol] 264 10*3/uL Normal 150-400 [facility] Comment on above: Order Comment: Speci men Type: BLOOD SPECIMENOrdering Facility: [facility] Address: [address] [place] [address] Performed By: #### 5 8410-2 ####DENTON LABORATORYCLIA [id number] [place] [id number] [place] RBC (Bld) [#/Vol] 2.95 10*6/uL Low 3.90-5.20 [facility] Comment on above: Order Comment: Speci men Type: BLOOD SPECIMENOrdering Facility: [facility] Address: [address] [place] [address] Performed By: #### 5 8410-2 ####DENTON LABORATORYCLIA [id number] [place] [id number] [place] WBC (Bld) [#/Vol] 10.25 10*3/uL Normal 3.70-11.00 [facility] Comment on above: Order Comment: Speci men Type: BLOOD SPECIMENOrdering Facility: [facility] Address: [address] [place] [address] Performed By: #### 5 8410-2 ####EMMANUEL LABORATORYCLIA [id number] [place] [id number] [place] Magnesium SerPl-mCncon 01-04 Magnesium [Mass/Vol] 1.9 mg/dL Normal 1.7-2.3 [facility] Comment on above: Order Comment: Speci men Type: BLOOD SPECIMENOrdering Facility: [facility] Address: [address] [place] [address] Performed By: #### 2 4321-2, 277-, ####EMMANUEL LABORATORYCLIA [id number] [place] [id number] [place] Phosphate SerPl-mCncon 01-04 Phosphate [Mass/Vol] 3.7 mg/dL Normal 2.7-4.8 [facility] Comment on above: Order Comment: Speci men Type: BLOOD SPECIMENOrdering Facility: [facility] Address: [address] [place] [address] Performed By: #### 2 4321-2, 2776-, ####EMMANUEL LABORATORYCLIA [id number] [place] [id number] [place] THERAPY NTon 01-05-2024 THERAPY NT Normal [facility] Basic metabolic 2000 panelon 01-04-2024 Anion gap [Moles/Vol] 10 mmol/L Normal 8-15 [facility] Comment on above: Order Comment: Speci men Type: BLOOD SPECIMENOrdering Facility: [facility] Address: [address] [place] [address] Performed By: #### 2 4321-2, 10416-1, 2776-03 ####EMMANUEL LABORATORYCLIA [id number] [place] [id number] [place] Calcium [Mass/Vol] 8.2 mg/dL Low 8.5-10.2 [facility] Comment on above: Order Comment: Speci men Type: BLOOD SPECIMENOrdering Facility: [facility] Address: [address] [place] [id number] Performed By: #### 2 4321-2, , 2776-03 ####EMMANUEL LABORATORYCLIA [id number] [place] [address] [place] Chloride [Moles/Vol] 99 mmol/L Normal 98-107 [facility] Comment on above: Order Comment: Speci men Type: BLOOD SPECIMENOrdering Facility: [facility] Address: [address] [place] [address] Performed By: #### 2 4321-2, , 2776-03 ####EMMANUEL LABORATORYCLIA [id number] [place] [id number] [place] CO2 [Moles/Vol] 27 mmol/L Normal 22-30 [facility] Comment on above: Order Comment: Speci men Type: BLOOD SPECIMENOrdering Facility: [facility] Address: [address] [place] [address] Performed By: #### 2 4321-2, , 2776-03 ####EMMANUEL LABORATORYCLIA [id number] [place] [id number] [place] Creatinine [Mass/Vol] 0.59 mg/dL Normal 0.58-0.96 [facility] Comment on above: Order Comment: Speci men Type: BLOOD SPECIMENOrdering Facility: [facility] Address: [address] [place] [address] Performed By: #### 2 4321-2, , 2776-03 ####EMMANUEL LABORATORYCLIA [id number] [place] [id number] [place] Creatinine and Glomerular filtration rate.predicted panel (S/P/Bld) 101 mL/min/1.73m??? Normal >=60 [facility] Comment on above: Order Comment: Speci men Type: BLOOD SPECIMENOrdering Facility: [facility] Address: [address] [place] [address] Result Comment: Sana mated Glomerular Filtration Rate (eGFR) is calculated using the 2021 CKD-EPI creatinine equation. This equation utilizes serum creatinine, sex, and age as parameters. The creatinine assay has traceable calibration to isotope dilution-mass spectrometry. Refer to KDIGO guidelines for clinical interpretation. In patients with unstable renal function, e.g. those with acute kidney injury, the eGFR may not accurately reflect actual GFR. Performed By: #### 2 4321-2, , 2776-03 ####EMMANUEL LABORATORYCLIA [id number] [place] [id number] [place] Glucose [Mass/Vol] 137 mg/dL High 74-99 [facility] Comment on above: Order Comment: Umesh baugh Type: BLOOD SPECIMENOrdering Facility: [facility] Address: [address] [place] [address] Result Comment: The [place] Diabetes [employer] (ADA) provides guidance for cutoff [...] Standards of Medical Care in Diabetes 2016, [place] [employer]. Diabetes Care. 2016.39(Suppl 1). Performed By: #### 2 4321-2, , 2776-03 ####EMMANULE LABORATORYCLIA [id number] [place] [id number] [place] Potassium [Moles/Vol] 4.3 mmol/L Normal 3.7-5.1 [facility] Comment on above: Order Comment: Umesh baugh Type: BLOOD SPECIMENOrdering Facility: [facility] Address: [address] [place] [id number] Performed By: #### 2 4321-2, , 2776-03 ####[facility] LABORATORYCLIA [id number] [place] [id number] [place] Sodium [Moles/Vol] 136 mmol/L Normal 136-144 [facility] Comment on above: Order Comment: Speci men Type: BLOOD SPECIMENOrdering Facility: [facility] Address: [address] [facility] [place] [address] Performed By: #### 2 4321-2, , 2776-03 ####DENT[facility] LABORATORYCLIA [id number] [place] [id number] [place] Urea nitrogen [Mass/Vol] 15 mg/dL Normal 7-21 [facility] Comment on above: Order Comment: Speci men Type: BLOOD SPECIMENOrdering Facility: [facility] Address: [address] [place] [address] Performed By: #### 2 4321-2, , 2776-03 ####D[facility] LABORATORYCLIA [id number] [place] [id number] [place] CASE MGT INIT ASSESon 2023 CASE MGT INIT ASSES Normal [facility] CBC panel Auto (Bld)on 01-03 Erythrocyte distribution width (RBC) [Ratio] 14.6 % Normal 11.5-15.0 [facility] Comment on above: Order Comment: Speci men Type: BLOOD SPECIMENOrdering Facility: [facility] Address: [address] [place] [address] Performed By: #### 5 8410-2 ####DENTON LABORATORYCLIA [id number] [place] [address] [place] Hematocrit (Bld) [Volume fraction] 25.9 % Low 36.0-46.0 [facility] Comment on above: Order Comment: Speci men Type: BLOOD SPECIMENOrdering Facility: [facility] Address: [address] [place] [address] Performed By: #### 5 8410-2 ####DENTON LABORATORYCLIA [id number] [place] [id number] [place] Hemoglobin (Bld) [Mass/Vol] 9.0 g/dL Low 11.5-15.5 [facility] Comment on above: Order Comment: Speci men Type: BLOOD SPECIMENOrdering Facility: [facility] Address: [address] [place] [address] Performed By: #### 5 8410-2 ####EMMANUEL LABORATORYCLIA [id number] [address] MCH (RBC) [Entitic mass] 28.3 pg Normal 26.0-34.0 [facility] Comment on above: Order Comment: Speci men Type: BLOOD SPECIMENOrdering Facility: [facility] Address: [address] [place] [address] Performed By: #### 5 8410-2 ####EMMANUEL LABORATORYCLIA [id number] [address] MCHC (RBC) [Mass/Vol] 34.7 g/dL Normal 30.5-36.0 [facility] Comment on above: Order Comment: Speci men Type: BLOOD SPECIMENOrdering Facility: [facility] Address: [address] [place] [address] Performed By: #### 5 8410-2 ####EMMANUEL LABORATORYCLIA [id number] [address] [place] MCV (RBC) [Entitic vol] 81.4 fL Normal 80.0-100.0 [facility] Comment on above: Order Comment: Speci men Type: BLOOD SPECIMENOrdering Facility: [facility] Address: [address] [place] [address] Performed By: #### 5 8410-2 ####EMMANUEL LABORATORYCLIA [id number] [address] [place] Nucleated RBC (Bld) [#/Vol] 10*3/uL Normal <0.01 [facility] Comment on above: Order Comment: Speci men Type: BLOOD SPECIMENOrdering Facility: [facility] Address: [address] [place] [address] Performed By: #### 5 8410-2 ####EMMANUEL LABORATORYCLIA [id number] [address] [place] Platelet mean volume (Bld) [Entitic vol] 9.5 fL Normal 9.0-12.7 [facility] Comment on above: Order Comment: Speci men Type: BLOOD SPECIMENOrdering Facility: [facility] Address: [address] [place] [address] Performed By: #### 5 8410-2 ####DENTON LABORATORYCLIA [id number] [place] [id number] [place] Platelets (Bld) [#/Vol] 264 10*3/uL Normal 150-400 [facility] Comment on above: Order Comment: Speci men Type: BLOOD SPECIMENOrdering Facility: [facility] Address: [address] [place] [address] Performed By: #### 5 8410-2 ####DENTON LABORATORYCLIA [id number] [place] [address] [place] RBC (Bld) [#/Vol] 3.18 10*6/uL Low 3.90-5.20 [facility] Comment on above: Order Comment: Speci men Type: BLOOD SPECIMENOrdering Facility: [facility] Address: [address] [place] [address] Performed By: #### 5 8410-2 ####D[facility] LABORATORYCLIA [id number] [place] [id number] [place] WBC (Bld) [#/Vol] 14.42 10*3/uL High 3.70-11.00 [facility] Comment on above: Order Comment: Speci men Type: BLOOD SPECIMENOrdering Facility: [facility] Address: [address] [place] [address] Performed By: #### 5 8410-2 ####D[facility] LABORATORYCLIA [id number] [place] [id number] [place] Erythrocyte distribution width (RBC) [Ratio] 13.7 % Normal 11.5-15.0 [facility] Comment on above: Order Comment: Speci men Type: BLOOD SPECIMENOrdering Facility: [facility] Address: [address] [place] [address] Performed By: #### 5 8410-2 ####EMMANUEL LABORATORYCLIA [id number] [address] [place] Hematocrit (Bld) [Volume fraction] 22.4 % Low 36.0-46.0 [facility] Comment on above: Order Comment: Speci men Type: BLOOD SPECIMENOrdering Facility: [facility] Address: [address] [place] [address] Performed By: #### 5 8410-2 ####EMMANUEL LABORATORYCLIA [id number] [place] [address] [place] Hemoglobin (Bld) [Mass/Vol] 7.5 g/dL Low 11.5-15.5 [facility] Comment on above: Order Comment: Speci men Type: BLOOD SPECIMENOrdering Facility: [facility] Address: [address] [place] [address] Performed By: #### 5 8410-2 ####EMMANUEL LABORATORYCLIA [id number] [address] [place] [facility] MCH (RBC) [Entitic mass] 28.8 pg Normal 26.0-34.0 [facility] Comment on above: Order Comment: Speci men Type: BLOOD SPECIMENOrdering Facility: [facility] Address: [address] [place] [address] Performed By: #### 5 8410-2 ####EMMANUEL LABORATORYCLIA [id number] [address] [place] MCHC (RBC) [Mass/Vol] 33.5 g/dL Normal 30.5-36.0 [facility] Comment on above: Order Comment: Speci men Type: BLOOD SPECIMENOrdering Facility: [facility] Address: [address] [place] [address] Performed By: #### 5 8410-2 ####EMMANUEL LABORATORYCLIA [id number] [address] MCV (RBC) [Entitic vol] 86.2 fL Normal 80.0-100.0 [facility] Comment on above: Order Comment: Speci men Type: BLOOD SPECIMENOrdering Facility: [facility] Address: [address] [place] [address] Performed By: #### 5 8410-2 ####[facility] LABORATORYCLIA [id number] [place] [id number] [place] Nucleated RBC (Bld) [#/Vol] 10*3/uL Normal <0.01 [facility] Comment on above: Order Comment: Speci men Type: BLOOD SPECIMENOrdering Facility: [facility] Address: [address] [place] [address] Performed By: #### 5 8410-2 ####[facility] LABORATORYCLIA [id number] [place] [address] [place] Platelet mean volume (Bld) [Entitic vol] 9.0 fL Normal 9.0-12.7 [facility] Comment on above: Order Comment: Speci men Type: BLOOD SPECIMENOrdering Facility: [facility] Address: [address] [place] [address] Performed By: #### 5 8410-2 ####[facility] LABORATORYCLIA [id number] [place] [address] [place] Platelets (Bld) [#/Vol] 312 10*3/uL Normal 150-400 [facility] Comment on above: Order Comment: Speci men Type: BLOOD SPECIMENOrdering Facility: [facility] Address: [address] [place] [address] Performed By: #### 5 8410-2 ####[facility] LABORATORYCLIA [id number] [place] [id number] [place] RBC (Bld) [#/Vol] 2.60 10*6/uL Low 3.90-5.20 [facility] Comment on above: Order Comment: Speci men Type: BLOOD SPECIMENOrdering Facility: [facility] Address: [address] [place] [address] Performed By: #### 5 8410-2 ####[facility] LABORATORYCLIA [id number] [place] [id number] [place] WBC (Bld) [#/Vol] 14.35 10*3/uL High 3.70-11.00 [facility] Comment on above: Order Comment: Speci men Type: BLOOD SPECIMENOrdering Facility: [facility] Address: [address] [place] [address] Performed By: #### 5 8410-2 ####[facility] LABORATORYCLIA [id number] [address] Erythrocyte distribution width (RBC) [Ratio] 13.6 % Normal 11.5-15.0 [facility] Comment on above: Order Comment: Speci men Type: BLOOD SPECIMENOrdering Facility: [facility] Address: [address] [place] [address] Performed By: #### 5 8410-2 ####[facility] LABORATORYCLIA [id number] [address] Hematocrit (Bld) [Volume fraction] 23.0 % Low 36.0-46.0 [facility] Comment on above: Order Comment: Speci men Type: BLOOD SPECIMENOrdering Facility: [facility] Address: [address] [place] [address] Performed By: #### 5 8410-2 ####[facility] LABORATORYCLIA [id number] [address] [place] Hemoglobin (Bld) [Mass/Vol] 7.6 g/dL Low 11.5-15.5 [facility] Comment on above: Order Comment: Speci men Type: BLOOD SPECIMENOrdering Facility: [facility] Address: [address] [place] [address] Performed By: #### 5 8410-2 ####[facility] LABORATORYCLIA [id number] [address] [place] MCH (RBC) [Entitic mass] 28.6 pg Normal 26.0-34.0 [facility] Comment on above: Order Comment: Speci men Type: BLOOD SPECIMENOrdering Facility: [facility] Address: [address] [place] [address] Performed By: #### 5 8410-2 ####[facility] LABORATORYCLIA [id number] [place] [address] [place] MCHC (RBC) [Mass/Vol] 33.0 g/dL Normal 30.5-36.0 [facility] Comment on above: Order Comment: Speci men Type: BLOOD SPECIMENOrdering Facility: [facility] Address: [address] [place] [address] Performed By: #### 5 8410-2 ####[facility] LABORATORYCLIA [id number] [place] [address] [place] MCV (RBC) [Entitic vol] 86.5 fL Normal 80.0-100.0 [facility] Comment on above: Order Comment: Speci men Type: BLOOD SPECIMENOrdering Facility: [facility] Address: [address] [place] [address] Performed By: #### 5 8410-2 ####EMMANUEL LABORATORYCLIA [id number] [place] [address] [place] Nucleated RBC (Bld) [#/Vol] 10*3/uL Normal <0.01 [facility] Comment on above: Order Comment: Speci men Type: BLOOD SPECIMENOrdering Facility: [facility] Address: [address] [place] [address] Performed By: #### 5 8410-2 ####EMMANUEL LABORATORYCLIA [id number] [place] [address] [place] Platelet mean volume (Bld) [Entitic vol] 9.0 fL Normal 9.0-12.7 [facility] Comment on above: Order Comment: Speci men Type: BLOOD SPECIMENOrdering Facility: [facility] Address: [address] [place] [address] Performed By: #### 5 8410-2 ####EMMANUEL LABORATORYCLIA [id number] [place] [address] [place] Platelets (Bld) [#/Vol] 278 10*3/uL Normal 150-400 [facility] Comment on above: Order Comment: Speci men Type: BLOOD SPECIMENOrdering Facility: [facility] Address: [address] [place] [address] Performed By: #### 5 8410-2 ####EMMANUEL LABORATORYCLIA [id number] [place] [address] [place] RBC (Bld) [#/Vol] 2.66 10*6/uL Low 3.90-5.20 [facility] Comment on above: Order Comment: Speci men Type: BLOOD SPECIMENOrdering Facility: [facility] Address: [address] [place] [address] Performed By: #### 5 8410-2 ####EMMANUEL LABORATORYCLIA [id number] [place] [id number] [place] WBC (Bld) [#/Vol] 13.11 10*3/uL High 3.70-11.00 [facility] Comment on above: Order Comment: Speci men Type: BLOOD SPECIMENOrdering Facility: [facility] Address: [address] [place] [address] Performed By: #### 5 8410-2 ####EMMANUEL LABORATORYCLIA [id number] [place] [address] [place] Magnesium SerPl-mCncon 01-03 Magnesium [Mass/Vol] 1.7 mg/dL Normal 1.7-2.3 [facility] Comment on above: Order Comment: Speci men Type: BLOOD SPECIMENOrdering Facility: [facility] Address: [address] [place] [address] Performed By: #### 2 4321-2, 87183-5, 2777-1 ####EMMANUEL LABORATORYCLIA [id number] [place] [id number] [place] Phosphate SerPl-mCncon 01-03 Phosphate [Mass/Vol] 4.6 mg/dL Normal 2.7-4.8 [facility] Comment on above: Order Comment: Speci men Type: BLOOD SPECIMENOrdering Facility: [facility] Address: [address] [place] [address] Performed By: #### 2 4321-2, 14064-9, 2777-1 ####EMMANUEL LABORATORYCLIA [id number] [place] [address] [place] THERAPY NTon 01-04-2024 THERAPY NT Normal [facility] ANES POSTPROC EVALon 024 ANES POSTPROC EVAL Normal [facility] ANES PRE-OPon 01-03-2024 ANES PRE-OP Normal [facility] BRIEF OP NOTon 01-03-2024 BRIEF OP NOT Normal [facility] CBC panel Auto (Bld)on 01-02 Erythrocyte distribution width (RBC) [Ratio] 13.6 % Normal 11.5-15.0 [facility] Comment on above: Order Comment: Speci men Type: BLOOD SPECIMENOrdering Facility: [facility] Address: [address] [place] [address] Performed By: #### 5 8410-2 ####[facility] LABORATORYCLIA [id number] [place] [address] [place] Hematocrit (Bld) [Volume fraction] 29.2 % Low 36.0-46.0 [facility] Comment on above: Order Comment: Speci men Type: BLOOD SPECIMENOrdering Facility: [facility] Address: [address] [place] [address] Performed By: #### 5 8410-2 ####DENTON LABORATORYCLIA [id number] [place] [address] [place] Hemoglobin (Bld) [Mass/Vol] 9.6 g/dL Low 11.5-15.5 [facility] Comment on above: Order Comment: Speci men Type: BLOOD SPECIMENOrdering Facility: [facility] Address: [address] [place] [address] Performed By: #### 5 8410-2 ####DENTON LABORATORYCLIA [id number] [place] [id number] [place] MCH (RBC) [Entitic mass] 28.7 pg Normal 26.0-34.0 [facility] Comment on above: Order Comment: Speci men Type: BLOOD SPECIMENOrdering Facility: [facility] Address: [address] [place] [address] Performed By: #### 5 8410-2 ####DENTON LABORATORYCLIA [id number] [place] [address] [place] MCHC (RBC) [Mass/Vol] 32.9 g/dL Normal 30.5-36.0 [facility] Comment on above: Order Comment: Speci men Type: BLOOD SPECIMENOrdering Facility: [facility] Address: [address] [place] [address] Performed By: #### 5 8410-2 ####[facility] LABORATORYCLIA [id number] [place] [address] [place] MCV (RBC) [Entitic vol] 87.4 fL Normal 80.0-100.0 [facility] Comment on above: Order Comment: Speci men Type: BLOOD SPECIMENOrdering Facility: [facility] Address: [address] [place] [address] Performed By: #### 5 8410-2 ####[facility] LABORATORYCLIA [id number] [place] [address] [place] Nucleated RBC (Bld) [#/Vol] 10*3/uL Normal <0.01 [facility] Comment on above: Order Comment: Speci men Type: BLOOD SPECIMENOrdering Facility: [facility] Address: [address] [place] [address] Performed By: #### 5 8410-2 ####[facility] LABORATORYCLIA [id number] [place] [address] [place] Platelet mean volume (Bld) [Entitic vol] 9.1 fL Normal 9.0-12.7 [facility] Comment on above: Order Comment: Speci men Type: BLOOD SPECIMENOrdering Facility: [facility] Address: [address] [place] [address] Performed By: #### 5 8410-2 ####[facility] LABORATORYCLIA [id number] [place] [address] [place] Platelets (Bld) [#/Vol] 436 10*3/uL High 150-400 [facility] Comment on above: Order Comment: Speci men Type: BLOOD SPECIMENOrdering Facility: [facility] Address: [address] [place] [address] Performed By: #### 5 8410-2 ####DENTON LABORATORYCLIA [id number] [place] [id number] [place] RBC (Bld) [#/Vol] 3.34 10*6/uL Low 3.90-5.20 [facility] Comment on above: Order Comment: Speci men Type: BLOOD SPECIMENOrdering Facility: [facility] Address: [address] [place] [address] Performed By: #### 5 8410-2 ####D[facility]ON LABORATORYCLIA [id number] [place] [id number] [place] WBC (Bld) [#/Vol] 23.47 10*3/uL High 3.70-11.00 [facility] Comment on above: Order Comment: Speci men Type: BLOOD SPECIMENOrdering Facility: [facility] Address: [address] [place] [address] Performed By: #### 5 8410-2 ####D[facility]ON LABORATORYCLIA [id number] [place] [id number] [place] MISMATCH REPAIR PROTEINS BY IHCon 01-03-2024 AP BIOMARKER DISCLAIMER Normal [facility] Comment on above: Order Comment: Speci men Type: TISSUE SPECIMENOrdering Facility: [facility] Address: [address] [place] [address] Result Comment: Vero voss Developed Test (LDT) Disclaimer:Performance characteristics of immunohistochemical, immunofluorescent and chromogenic in-situ hybridization tests have been determined by the performing laboratory within [facility]???s [facility] Dinero Pathology and Laboratory Medicine Department ([facility], [facility], [facility], [facility], [facility], [facility], or [facility]) in a manner consistent with CLIA requirements. One or more of these tests have not been cleared or approved by the FDA. RT-PLM is regulated under CLIA as qualified to perform high-complexity testing. These tests are used for clinical purposes. They should not be regarded as investigational or for research. Positive and negative controls stain appropriately. Performed By: #### S ####DENTON LABORATORYCLIA [id number] [place] [address] [place]#### [id number] ####[facility] LABCLIA [id number] [place] [id number] [place] AP BLOCK ID B5 Normal [facility] Comment on above: Order Comment: Speci men Type: TISSUE SPECIMENOrdering Facility: [facility] Address: [address] [place] [address] Performed By: #### S ####D[facility] LABORATORYCLIA [id number] [place] [id number] [place]#### [id number] ####[facility] LABCLIA [id number] [address] [place] BIOMARKER INTERPRETATION COMMENT AND REFERENCE RANGE Normal [facility] Comment on above: Order Comment: Speci men Type: TISSUE SPECIMENOrdering Facility: [facility] Address: [address] [place] [address] [address]: [address] expression of MMR [...] patients with metastatic carcinoma, Evy et al. ([facility] 2015;372:2509-20) reported that clinical benefit of pembrolizumab, an [...] questions about this result, please call the [facility] for Personalized Genomic [facility] at [phone]. Performed By: #### S ####D[facility]ON LABORATORYCLIA [id number] [place] [address] [place]#### [id number] ####[facility] LABCLIA [id number] [place] [address] [place] BIOMARKER METHOD Normal [facility] Comment on above: Order Comment: Speci men Type: TISSUE SPECIMENOrdering Facility: [facility] Address: [address] [place] [address] Performed By: #### S ####[facility] LABORATORYCLIA [id number] [place] [address] [place]#### [id number] ####[facility] LABCLIA [id number] [address] OF [facility] CASE NUMBER MMR [id number] [facility] Comment on above: Order Comment: Speci men Type: TISSUE SPECIMENOrdering Facility: [facility] Address: [address] [place] [address] Performed By: #### S ####[facility] LABORATORYCLIA [id number] [address] [place]#### [id number] ####[facility] LABCLIA [id number] [address] [place] FINAL PERFORMING LAB Normal [facility] Comment on above: Order Comment: Speci men Type: TISSUE SPECIMENOrdering Facility: [facility] Address: [address] [place] [address] Result Comment: Diag nostic interpretation performed at: [facility], [address] [place] [address], [place] [address] CLIA# [id number] Director: Marky Christian MDElectronically signed out by: RADHA VILLALPANDO MD, PhD Performed By: #### S ####[facility] LABORATORYCLIA [id number] [place] [address] [place]#### [id number] ####[facility] LABCLIA [id number] [place] [address] [place] FIXATIVE Formalin, 10% Neutra l Buffered Normal [facility] Comment on above: Order Comment: Speci men Type: TISSUE SPECIMENOrdering Facility: [facility] Address: [address] [place] [address] Performed By: #### S ####D[facility]ON LABORATORYCLIA [id number] [place] [address] [place]#### [id number] ####[facility] LABCLIA [id number] [place] [address] [place] MLH1 IMMUNOHISTOCHEMICAL RESULTS Normal/Intact Nuclear Expression Normal [facility] Comment on above: Order Comment: Speci men Type: TISSUE SPECIMENOrdering Facility: [facility] Address: [address] [place] [address] Performed By: #### S ####[facility]ITAL[facility] [id number] [place] [address] [place]#### [id number] ####[facility] LABCLIA [id number] [place] [address] [place] MLH1 PROMOTER METHYLATION ASSAY No Normal [facility] Comment on above: Order Comment: Speci men Type: TISSUE SPECIMENOrdering Facility: [facility] Address: [address] [place] [address] Performed By: #### S ####[facility] LABORATORYCLIA [id number] [place] [address] [place]#### [id number] ####[facility] LABCLIA [id number] [place] [address] [place] MMR INTERPRETATION Proficient (Microsat ellite Stable) Normal [facility] Comment on above: Order Comment: Speci men Type: TISSUE SPECIMENOrdering Facility: [facility] Address: [address] [place] [address] Performed By: #### S ####D[facility] LABORATORYCLIA [id number] [place] [address] [place]#### [id number] ####[facility] LABCLIA [id number] [place] [address] [place] MSH2 IMMUNOHISTOCHEMICAL RESULTS Normal/Intact Nuclear Expression Normal [facility] Comment on above: Order Comment: Speci men Type: TISSUE SPECIMENOrdering Facility: [facility] Address: [address] [place] [address] Performed By: #### S ####D[facility] LABORATORYCLIA [id number] [place] [address] [place]#### [id number] ####[facility] LABCLIA [id number] [place] [address] [place] MSH6 IMMUNOHISTOCHEMICAL RESULTS Normal/Intact Nuclear Expression Normal [facility] Comment on above: Order Comment: Speci men Type: TISSUE SPECIMENOrdering Facility: [facility] Address: [address] [place] [address] Performed By: #### S ####[facility] LABORATORYCLIA [id number] [place] [address] [place]#### [id number] ####[facility] LABCLIA [id number] [place] [address] [place] PMS2 IMMUNOHISTOCHEMICAL RESULTS Normal/Intact Nuclear Expression Normal [facility] Comment on above: Order Comment: Speci men Type: TISSUE SPECIMENOrdering Facility: [facility] Address: [address] [place] [address] Performed By: #### S ####[facility] LABORATORYCLIA [id number] [place] [address] [place]#### [id number] ####[facility] LABCLIA [id number] [place] TUMOR TYPE MMR Primary Colorectal Adenocarcinoma [facility] Comment on above: Order Comment: Speci men Type: TISSUE SPECIMENOrdering Facility: [facility] Address: [address] [place] [address] Performed By: #### S ####[facility] LABORATORYCLIA [id number] [place] [address] [place]#### [id number] ####[facility] LABCLIA [id number] [place] [address] [place] NURSING PROGon 01-03-2024 NURSING PROG [facility] OPERATIVE NOon 01-03-2024 OPERATIVE NO Normal [facility] SURGICAL PATHOLOGYon 024 BLOCK FOR ADDITIONAL BIOMARKERS/MOLECULAR STUDIES B5 [facility] Comment on above: Order Comment: Speci men Type: TISSUE SPECIMENOrdering Facility: [facility] Address: [address] [place] [address] Performed By: #### S ####[facility] LABORATORYCLIA [id number] [place] [address] [place]#### [id number] ####[facility] LABCLIA [id number] [address] [place] CASE REPORT Normal [facility] Comment on above: Order Comment: Speci men Type: TISSUE SPECIMENOrdering Facility: [facility] Address: [address] [place] [address] Result Comment: Surg ical Pathology Report Case: [id number] Provider: Tessa Spring MD Collected: 01/03/2024 01:42 PMOrdering Location: [facility] Received: 01/03/2024 04:12 PM Operating RoomPathologist: Jimbo Mesa MDSpecimens: A) - Appendix, Appendectomy B) - Colon, Resection, ileocecectomy Performed By: #### S ####[facility] LABORATORYCLIA [id number] [place] [address] [place]#### [id number] ####[facility] LABCLIA [id number] [address] [place] CLINICAL HISTORY Normal [facility] Comment on above: Order Comment: Speci men Type: TISSUE SPECIMENOrdering Facility: [facility] Address: [address] [place] [address] Result Comment: Pre- op diagnosis:Perforated appendix [K35.32] Performed By: #### S ####[facility] LABORATORYCLIA [id number] [address]#### [id number] ####[facility] LABCLIA [id number] [address] STATES [facility] DIAGNOSIS COMMENT Normal [facility] Comment on above: Order Comment: Speci men Type: TISSUE SPECIMENOrdering Facility: [facility] Address: [address] [place] [address] Result Comment: A. 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 Sana Freeman.B. Dr. Spring was notified of these findings via e-mail on 01/09/2024.Laboratory Developed Test (LDT) Disclaimer:Performance characteristics of immunohistochemical, immunofluorescent and chromogenic in-situ hybridization tests have been determined by the performing laboratory within [facility]???s Mark Dinero Pathology and Laboratory Medicine Department ([facility], [facility], [facility], [facility], [facility], [facility], or [facility]) in a manner consistent with CLIA requirements. One or more of these tests have not been cleared or approved by the FDA. RT-PLM is regulated under CLIA as qualified to perform high-complexity testing. These tests are used for clinical purposes. They should not be regarded as investigational or for research. Positive and negative controls stain appropriately. Performed By: #### S ####[facility] LABORATORYCLIA [id number] [place] [id number] [place]#### [id number] ####[facility] LABCLIA [id number] [place] [address] [place] FINAL DIAGNOSIS Normal [facility] Comment on above: Order Comment: Speci men Type: TISSUE SPECIMENOrdering Facility: [facility] Address: [address] [place] [address] Result Comment: A. A ppendix, excision:- Invasive [...] report).- Twenty-two lymph nodes, negative for malignancy (0/22).JEL 01/08/2024 Performed By: #### S ####[facility] LABORATORYCLIA [id number] [place] [address] [place]#### [id number] ####[facility] LABCLIA [id number] [place] [address] [place] FINAL PERFORMING LAB Normal [facility] Comment on above: Order Comment: Speci men Type: TISSUE SPECIMENOrdering Facility: [facility] Address: [address] [place] [address] Result Comment: Diag nostic interpretation performed at [facility], [address] [place] [address] CLIA# [id number] Director: Sana Freeman M.D. Performed By: #### S ####[facility] LABORATORYCLIA [id number] [place] [id number] [place]#### [id number] ####[facility] LABCLIA [id number] [place] [address] [place] GROSS DESCRIPTION Normal [facility] Comment on above: Order Comment: Speci men Type: TISSUE SPECIMENOrdering Facility: [facility] Address: [address], [place] [address] Result Comment: A. A ppendix, AppendectomyReceived in [...] through the tube reveals a patent lumen. Environmental Adviser sections are submitted as follows: A1 tip bisected and proximal shave margin, A2 remaining appendix, A3 fallopian tube with entire fimbriated end.WE January 04, 2024 12:14 PMGross examination performed at [facility], [address] [place], [place] [address]Kvy remaining fallopian tube is submitted in cassettes A4-A5.WE January 08, 2024 2:07 PMGross examination performed at [facility], [address] [place], [place] [address]V. Colon, ResectionReceived in formalin designated ileocecectomy is [...] with a wall thickness of 1 cm. Environmental Adviser sections are submitted as follows: B1 proximal [...] 04, 2024 11:11 AMGross examination performed at [facility], [address] [place] [address] Performed By: #### S ####[facility] LABORATORYCLIA [id number] [place] [id number] [place]#### [id number] ####[facility] LABCLIA [id number] [facility] [id number] [place] [address] [place] SYNOPTIC REPORT Normal [facility] Comment on above: Order Comment: Speci men Type: TISSUE SPECIMENOrdering Facility: [facility] Address: [address] [place] [address] Result Comment: COLO N AND RECTUM: ResectionCOLON AND RECTUM: RESECTION - All [id number] Edition - Protocol posted: 09/13/2023SPECIMEN Procedure: IleocecectomyTUMOR [...] pN Category: pN0 Performed By: #### S ####[facility] LABORATORYCLIA [id number] [address]#### [id number] ####[facility] LABCLIA [id number] [address] [facility] HISTORY PHYSICALon HISTORY PHYSICAL HNO ID: [id number] Author: LISBETH ALFORD PA-C Service: ? Author Type: Physician Vp Software Support Type: H&P Filed: 12/28/2023 10:49 Note Text: HISTORY AND PHYSICAL EXAMINATION SERVICE DATE: 12/28/2023 SERVICE TIME: 10:48 AM PRIMARY CARE PHYSICIAN: Mary Moss CNP, LUZMA REASON FOR VISIT: Lakesha Koch is a [...] manage symptoms. Procedure scheduled on 01/03/2024 at [facility]. REVIEW OF SYSTEMS: General: No weight loss, [...] chest pain, CHF, DVT/PE, hyperlipidemia, hypertension, recent [place], murmur/valvular heart disease, open heart surgery and [...] amoxicillin-clavulanate potassium (A (more content not included)... [facility] TYPE AND SCREEN,30 DAYon ABO B [facility] Comment on above: Order Comment: Speci men Type: BLOOD SPECIMEN [facility] Address: [address] [place] [address] Performed By: #### T SCR30 #### [facility] CLIA [id number] [address] [place] [address] [place] Rh Nom (Bld) Positive Normal [facility] Comment on above: Order Comment: Speci men Type: BLOOD SPECIMEN [facility] Address: [address] [address] Performed By: #### T SCR30 #### [facility] CLIA [id number] [address] [place] [address] [place] ABO group Nom (Bld) B [facility] Blood group antibody screen Ql Negative [facility] Rh Nom (Bld) Positive [facility] REVERSE T3on 12-23-2023 T3.reverse [Mass/Vol] 13.2 ng/dL 9.0 - 27.0 ng/dL [facility] Comment on above: INTERPRETIVE INFORMA TION: Triiodothyronine, Reverse - LC-MS/MS This test was developed and its performance characteristics determined by [facility]. It has not been cleared or approved by the [place] Food and Drug Administration. This test was performed in a CLIA certified laboratory and is intended for clinical purposes. Performed By: [facility] [address] [place] [address] Yard Truck Driver: Chriss Courtney MD, PhD [facility] Number: [id number] T3.reverse [Mass/Vol]on 11-26 [facility] Free T3 [Mass/Vol]on 024 Interpretation and review of laboratory results Abnormal [facility] No Panel Informationon 12-19 Interpretation and review of laboratory results Normal [facility] T3, FREEon 12-20-2023 Free T3 [Mass/Vol] 2.2 pg/mL Low 2.3 - 4.1 pg/mL [facility] T4 FREE/FREE THYROXINEon Free T4 [Mass/Vol] 1.0 ng/dL 0.9 - 1.7 ng/dL [facility] THYROID STIMULATING HORMONEo n 12-20-2023 TSH Qn 1.540 m[IU]/L [facility] Absolute lymphocyte countOrd ered By: CHRISTIE HYLTON on 01-25-2023 Lymphocytes Auto (Unsp spec) [#/Vol] 2.00 10*3/uL 0.83-4.51 [facility] Basophil percentageOrdered B y: CHRISTIE HYLTON on 01-25-2023 Basophils/100 WBC (Bld) 0.4 % 0-1 [facility] Eosinophils/100 WBC (Bld) 0.7 % 0-5 [facility] Neutrophils (Bld) [#/Vol] 7.9 10*3/uL 2.0-7.7 [facility] Neutrophils/100 WBC (Bld) 72.0 % 47-70 [facility] WBC (Bld) [#/Vol] 11.0 10*3/uL 4.4-11.0 [facility] Blood erythrocytes count (nu mber/volume)Ordered By: CHRISTIE HYLTON on 01-25-2023 RBC (Bld) [#/Vol] 3.24 10*6/uL 4.2-5.4 [facility] Blood hemoglobin measurement (mass/volume)Ordered By: CHRISTIE HYLTON on 01-25-2023 Hemoglobin (Bld) [Mass/Vol] 9.6 g/dL 12.0-15.0 [facility] Blood lymphocytes/100 leukoc ytesOrdered By: CHRISTIE HYLTON on 01-25-2023 Lymphocytes/100 WBC (Bld) 18.2 % 19-41 [facility] Blood monocytes/100 leukocyt esOrdered By: CHRISTIE HYLTON on 01-25-2023 Monocytes/100 WBC (Bld) 8.2 % 0-10 [facility] Blood platelet mean volumeOr dered By: CHRISTIE HYLTON on 01-25-2023 Platelet mean volume (Bld) [Entitic vol] 9.5 fL 6.2-12.0 [facility] Determination of erythrocyte mean corpuscular volume (MCV)Ordered By: CHRISTIE HYLTON on 01-25-2023 MCV (RBC) [Entitic vol] 94.4 fL 81-99 [facility] Hematocrit Auto (Bld) [Volum e fraction]Ordered By: CHRISTIE HYLTON on 01-25-2023 Hematocrit (Bld) [Volume fraction] 30.6 % 37-47 [facility] Laboratory - Hematology and Cell countsOrdered By: CHRISTIE HYLTON on 01-25-2023 Erythrocyte distribution width (RBC) [Entitic vol] 44.0 fL 35.1-43.9 [facility] Erythrocyte distribution width (RBC) [Ratio] 12.6 % 11.6-14.6 [facility] Immature granulocytes/100 WBC (Bld) 0.500 % 0.0-0.9 [facility] Comment on above: IG% - Immature Granu locytes (promyelocytes, myelocytes and metamyelocytes) > 1% indicates that a LEFT SHIFT is Present. MCH (RBC) [Entitic mass] 29.6 pg 27.0-32.0 [facility] Nucleated RBC/100 WBC (Bld) [Ratio] 0 % 0-5 [facility] MCHC Auto (RBC) [Mass/Vol]Or dered By: CHRISTIE HYLTON on 01-25-2023 MCHC (RBC) [Mass/Vol] 31.4 g/dL 32-36 [facility] No Panel InformationOrdered By: CHRISTIE HYLTON on 01-25-2023 Valproic Acid (Depakene) Level 103 ug/mL 50-100 [facility] Platelets bldOrdered By: JOSETTE HYLTON on 01-25-2023 Platelets (Bld) [#/Vol] 216 10*3/uL 150-450 [facility] Basophil percentageOrdered B y: CHRISTIE HYLTON on 01-18-2023 Bilirubin [Mass/Vol] 0.20 mg/dL 0.20-1.00 [facility] Comment on above: For patients on eltr ombopag therapy, use of Dimension [place] TBIL is not recommended. Chloride [Moles/Vol] 104 mmol/L 98-107 [facility] Glucose [Mass/Vol] 115 mg/dL 74-106 [facility] Comment on above: Fasting Glucose resu lt from 100 to 125 mg/dL suggests IMPAIRED HOMEOSTASIS per A.D.A. criteria. Potassium [Moles/Vol] 4.3 mmol/L 3.5-5.1 [facility] Protein [Mass/Vol] 7.0 g/dL 6.4-8.2 [facility] Sodium [Moles/Vol] 138 mmol/L 136-145 [facility] Laboratory - Chemistry and C hemistry - challengeOrdered By: CHRISTIE HYLTON on 01-18-2023 ALP [Catalytic activity/Vol] 64 U/L 45-117 [facility] ALT [Catalytic activity/Vol] 9 U/L 13-56 [facility] CO2 [Moles/Vol] 31.0 mmol/L 21.0-32.0 [facility] Globulin (S) [Mass/Vol] 4.2 g/dL 2.2-4.2 [facility] Urea nitrogen/Creatinine [Mass ratio] 25.4 mg/mg 10-20 [facility] No Panel InformationOrdered By: CHRISTIE HYLTON on 01-18-2023 Estimated GFR (MDRD) Amer 95 mL/min >60 [facility] Comment on above: GFR Calc Estimated GFR (MDRD) Non-Af Amer 78 mL/min >60 [facility] Comment on above: Non- GFR Calc Serum or plasma albumin renetta urement (mass/volume)Ordered By: CHRISTIE HYLTON on 01-18-2023 Albumin [Mass/Vol] 2.8 g/dL 3.2-5.0 [facility] Serum or plasma albumin/glob ulin mass ratioOrdered By: CHRISTIE HYLTON on 01-18-2023 Albumin/Globulin [Mass ratio] 0.7 {ratio} 0.9-2.4 [facility] Serum or plasma calcium renetta urement (mass/volume)Ordered By: CHRISTIE HYLTON on 01-18-2023 Calcium [Mass/Vol] 8.6 mg/dL 8.5-10.1 [facility] Serum or plasma creatinine m easurement (mass/volume)Ordered By: CHRISTIE HYLTON on 01-18-2023 Creatinine [Mass/Vol] 0.79 mg/dL 0.55-1.02 [facility] Comment on above: The validity of the calculated GFR & GFRAA in patients over 70 years has not been determined. Clinical correlation is essential. Serum or plasma urea nitroge n measurement (mass/volume)Ordered By: CHRISTIE HYLTON on 01-18-2023 Urea nitrogen [Mass/Vol] 20 mg/dL 7-18 [facility] Thin prep Papanicolaou smear with manual screeningOrdered By: CHRISTIE HYLTON on 01-18-2023 Thin prep Papanicolaou smear with manual screening 12 U/L 15-37 [facility] Thin prep Papanicolaou smear with manual screening 3 5-15 [facility] Progress Noteson 10-28-2022 [employer] Interface Message Text ----- Friday, October 28, 2022 at 3:59:08 PM ----- ----- Provider: [id number] - Sheila Walters DMD -- Clinic: [place] ----- 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 Patient has lost her Medicaid insurance since her last appointment and will not be getting new dental insurance. Since patient is paying out of pocket for all dental treatment, she would like to pursue treatment at an office closer to home since she is from [place], [place]. I did advise patient that she needs to get a flipper to replace those teeth before the bridge breaks out of her mouth, patient agrees. If patient returns the next appointment would be impression for a flipper. Normal [facility] Progress Noteson 09-23-2022 [employer] Authentication Interface Message Text ----- Friday, September 23, 2022 at 12:51:09 PM ----- ----- Provider: [id number] - Teagan Keith Hygienist -- Clinic: [place] [address] ----- Pt [facility] [place] [facility] [place]. Radiograph taken today: 3 PA's X-ray. Limited exam with Dr. Becker Note:Patient shared that [facility] does not provide services for extractions or options to replace teeth. Dr. Becker reviewed process and options for replacing teeth, an appointment was made at [facility] to discuss teeth replacement options before extractions are completed. TREATMENT PLAN: 1. Prosthodontic consultation to treatment plan tooth replacement options for teeth #8, 9, 10 2. EXT teeth #8-10 (fixed bridge) Teagan Keith [facility] [place]. Limited exam for tooth replacement options for teeth #8-10 ----- Signed on Friday, September 23, 2022 at 6:31:41 PM ----- ----- Provider: [id number] - Allie Becker DDS -- Clinic: [id number] ----- [facility] Absolute lymphocyte counton 10-11-2021 Lymphocytes Auto (Unsp spec) [#/Vol] 2.10 10*3/uL 0.83-4.51 [facility] Work Phone: Basophil percentageon 2021 Basophils/100 WBC (Bld) 1.5 % 0-1 [facility] Work Phone: Bilirubin [Mass/Vol] 0.20 mg/dL 0.20-1.00 [facility] Work Phone: Comment on above: For patients on eltr ombopag therapy, use of [place] TBIL is not recommended. Chloride [Moles/Vol] 107 mmol/L 98-107 [facility] Work Phone: Eosinophils/100 WBC (Bld) 10.2 % 0-5 [facility] Work Phone: Glucose [Mass/Vol] 85 mg/dL 74-106 [facility] Work Phone: Neutrophils (Bld) [#/Vol] 4.5 10*3/uL 2.0-7.7 [facility] Work Phone: Neutrophils/100 WBC (Bld) 55.6 % 47-70 [facility] Work Phone: Potassium [Moles/Vol] 4.0 mmol/L 3.5-5.1 [facility] Work Phone: Protein [Mass/Vol] 7.4 g/dL 6.4-8.2 [facility] Work Phone: Sodium [Moles/Vol] 140 mmol/L 136-145 [facility] Work Phone: WBC (Bld) [#/Vol] 8.0 10*3/uL 4.4-11.0 [facility] Work Phone: Blood erythrocytes count (nu mber/volume)on 10-11-2021 RBC (Bld) [#/Vol] 4.18 10*6/uL 4.2-5.4 [facility] Work Phone: Blood hemoglobin measurement (mass/volume)on 10-11-2021 Hemoglobin (Bld) [Mass/Vol] 12.1 g/dL 12.0-15.0 [facility] Work Phone: [phone] Blood lymphocytes/100 leukoc yteson 10-11-2021 Lymphocytes/100 WBC (Bld) 26.1 % 19-41 [facility] Work Phone: [phone] Blood monocytes/100 leukocyt eson 10-11-2021 Monocytes/100 WBC (Bld) 6.2 % 0-10 [facility] Work Phone: [phone] Blood platelet mean volumeon 10-11-2021 Platelet mean volume (Bld) [Entitic vol] 8.9 fL 6.2-12.0 [facility] Work Phone: [phone] Determination of erythrocyte mean corpuscular volume (MCV)on 10-11-2021 MCV (RBC) [Entitic vol] 89.2 fL 81-99 [facility] Work Phone: [phone] Hematocrit Auto (Bld) [Volum e fraction]on 10-11-2021 Hematocrit (Bld) [Volume fraction] 37.3 % 37-47 [facility] Work Phone: [phone] Laboratory - Chemistry and C hemistry - challengeon 10-11-2021 ALP [Catalytic activity/Vol] 104 U/L 45-117 [facility] Work Phone: [phone] ALT [Catalytic activity/Vol] 14 U/L 13-56 [facility] Work Phone: [phone] CO2 [Moles/Vol] 27.0 mmol/L 21.0-32.0 [facility] Work Phone: [phone] Globulin (S) [Mass/Vol] 4.1 g/dL 2.2-4.2 [facility] Work Phone: [phone] Urea nitrogen/Creatinine [Mass ratio] 23.9 mg/mg 10-20 [facility] Work Phone: [phone] Laboratory - Hematology and Cell countson 10-11-2021 Erythrocyte distribution width (RBC) [Entitic vol] 37.6 fL 35.1-43.9 [facility] Work Phone: [phone] Erythrocyte distribution width (RBC) [Ratio] 11.6 % 11.6-14.6 [facility] Work Phone: [phone] Immature granulocytes/100 WBC (Bld) 0.400 % 0.0-0.9 [facility] Work Phone: [phone] Comment on above: IG% - Immature Granu locytes (promyelocytes, myelocytes and metamyelocytes) > 1% indicates that a LEFT SHIFT is Present. MCH (RBC) [Entitic mass] 28.9 pg 27.0-32.0 [facility] Work Phone: [phone] Nucleated RBC/100 WBC (Bld) [Ratio] 0 % 0-5 [facility] Work Phone: [phone] MCHC Auto (RBC) [Mass/Vol]on 10-11-2021 MCHC (RBC) [Mass/Vol] 32.4 g/dL 32-36 [facility] Work Phone: [phone] No Panel Informationon 10-11 Estimated GFR (MDRD) Amer 107 mL/min >60 [facility] Work Phone: [phone] Comment on above: GFR Calc Estimated GFR (MDRD) Non-Af Amer 88 mL/min >60 [facility] Work Phone: [phone] Comment on above: Non- GFR Calc Miscellaneous Test [facility]: [phone] Comment on above: TEST RESULT LIMITSVa lproic Acid (Total+Free) Valproic Acid (Depakote)(R),S 67 ug/mL 50-100 Detection Limit = 4 <4 indicates None Detected Toxicity may occur at levels of 100-500. Measurements of free unbound valproic acid may improve the assess- ment of clinical response. Free Valproic Acid (Depakote) 11.4 ug/mL 6.0-22.0 Detection Limit = 0.5 TESTING PERFORMED AT [facility]. ORIGINAL REPORT ON FILE IN LAB CONTAINS ADDITIONAL TEST SITE INFORMATION. Platelets bldon 10-11-2021 Platelets (Bld) [#/Vol] 264 10*3/uL 150-450 [facility] Work Phone: Serum or plasma albumin renetta urement (mass/volume)on 10-11-2021 Albumin [Mass/Vol] 3.3 g/dL 3.2-5.0 [facility] Work Phone: Serum or plasma albumin/glob ulin mass ratioon 10-11-2021 Albumin/Globulin [Mass ratio] 0.8 {ratio} 0.9-2.4 [facility] Work Phone: Serum or plasma calcium renetta urement (mass/volume)on 10-11-2021 Calcium [Mass/Vol] 8.8 mg/dL 8.5-10.1 [facility] Work Phone: Serum or plasma creatinine m easurement (mass/volume)on 10-11-2021 Creatinine [Mass/Vol] 0.71 mg/dL 0.55-1.02 [facility] Work Phone: Comment on above: The validity of the calculated GFR & GFRAA in patients over 70 years has not been determined. Clinical correlation is essential. Serum or plasma urea nitroge n measurement (mass/volume)on 10-11-2021 Urea nitrogen [Mass/Vol] 17 mg/dL 10-11 [facility] Work Phone: Thin prep Papanicolaou smear with manual screeningon 10-11-2021 Thin prep Papanicolaou smear with manual screening 19 U/L 15-37 [facility] Work Phone: Thin prep Papanicolaou smear with manual screening 6 5-15 [facility] Work Phone: Absolute lymphocyte counton 07-02-2021 Lymphocytes Auto (Unsp spec) [#/Vol] 2.15 10*3/uL 0.83-4.51 [facility] Work Phone: Basophil percentageon 2021 Basophils/100 WBC (Bld) 1.1 % 0-1 [facility] Work Phone: Chloride [Moles/Vol] 106 mmol/L 98-107 [facility] Work Phone: Eosinophils/100 WBC (Bld) 9.8 % 0-5 [facility] Work Phone: Glucose [Mass/Vol] 87 mg/dL 74-106 [facility] Work Phone: Neutrophils (Bld) [#/Vol] 5.4 10*3/uL 2.0-7.7 [facility] Work Phone: Neutrophils/100 WBC (Bld) 58.1 % 47-70 [facility] Work Phone: Potassium [Moles/Vol] 4.0 mmol/L 3.5-5.1 [facility] Work Phone: Sodium [Moles/Vol] 139 mmol/L 136-145 [facility] Work Phone: WBC (Bld) [#/Vol] 9.4 10*3/uL 4.4-11.0 [facility] Work Phone: Blood erythrocytes count (nu mber/volume)on 07-02-2021 RBC (Bld) [#/Vol] 3.98 10*6/uL 4.2-5.4 [facility] Work Phone: Blood hemoglobin measurement (mass/volume)on 07-02-2021 Hemoglobin (Bld) [Mass/Vol] 12.0 g/dL 12.0-15.0 [facility] Work Phone: Blood lymphocytes/100 leukoc yteson 07-02-2021 Lymphocytes/100 WBC (Bld) 23.0 % 19-41 [facility] Work Phone: Blood monocytes/100 leukocyt eson 07-02-2021 Monocytes/100 WBC (Bld) 7.6 % 0-10 [facility] Work Phone: [phone] Blood platelet mean volumeon 07-02-2021 Platelet mean volume (Bld) [Entitic vol] 9.1 fL 6.2-12.0 [facility] Work Phone: Determination of erythrocyte mean corpuscular volume (MCV)on 07-02-2021 MCV (RBC) [Entitic vol] 91.5 fL 81-99 [facility] Work Phone: [phone] Hematocrit Auto (Bld) [Volum e fraction]on 07-02-2021 Hematocrit (Bld) [Volume fraction] 36.4 % 37-47 [facility] Work Phone: Iron measurement (mass/mass) on 07-02-2021 Iron (Unsp spec) [Mass/Mass] 66 ug/dL 50-170 [facility] Work Phone: Laboratory - Chemistry and C hemistry - challengeon 07-02-2021 CO2 [Moles/Vol] 29.0 mmol/L 21.0-32.0 [facility] Work Phone: [phone] Urea nitrogen/Creatinine [Mass ratio] 27.5 mg/mg 10-20 [facility] Work Phone: Laboratory - Hematology and Cell countson 07-02-2021 Erythrocyte distribution width (RBC) [Entitic vol] 40.8 fL 35.1-43.9 [facility] Work Phone: [phone] Erythrocyte distribution width (RBC) [Ratio] 12.1 % 11.6-14.6 [facility] Work Phone: Immature granulocytes/100 WBC (Bld) 0.400 % 0.0-0.9 [facility] Work Phone: Comment on above: IG% - Immature Granu locytes (promyelocytes, myelocytes and metamyelocytes) > 1% indicates that a LEFT SHIFT is Present. MCH (RBC) [Entitic mass] 30.2 pg 27.0-32.0 [facility] Work Phone: Nucleated RBC/100 WBC (Bld) [Ratio] 0 % 0-5 [facility] Work Phone: MCHC Auto (RBC) [Mass/Vol]on 07-02-2021 MCHC (RBC) [Mass/Vol] 33.0 g/dL 32-36 [facility] Work Phone: No Panel Informationon 07-02 Estimated GFR (MDRD) Amer 118 mL/min >60 [facility] Work Phone: Comment on above: GFR Calc Estimated GFR (MDRD) Non-Af Amer 97 mL/min >60 [facility] Work Phone: Comment on above: Non- GFR Calc Total Iron Binding Capacity 330 ug/dL 250-450 [facility] Work Phone: Platelets bldon 07-02-2021 Platelets (Bld) [#/Vol] 271 10*3/uL 150-450 [facility] Work Phone: Serum or plasma calcium renetta urement (mass/volume)on 07-02-2021 Calcium [Mass/Vol] 8.5 mg/dL 8.5-10.1 [facility] Work Phone: Serum or plasma creatinine m easurement (mass/volume)on 07-02-2021 Creatinine [Mass/Vol] 0.66 mg/dL 0.55-1.02 [facility] Work Phone: Comment on above: The validity of the calculated GFR & GFRAA in patients over 70 years has not been determined. Clinical correlation is essential. Serum or plasma urea nitroge n measurement (mass/volume)on 07-02-2021 Urea nitrogen [Mass/Vol] 18 mg/dL 7-18 [facility] Work Phone: Thin prep Papanicolaou smear with manual screeningon 07-02-2021 Thin prep Papanicolaou smear with manual screening 4 5-15 [facility] Work Phone: Topiramateon 01-30-2019 Topiramate 4.5 ug/mL Low 5.0-20.0 [facility] Comment on above: Result Comment: Refe rence ranges and high/low indicator flags are provided as general guidelines only. The treating physician must determine appropriate target levels/dosing based on the specific clinical situation. This test was developed and its performance characteristics determined by [facility]'s [facility] [place] ( [facility]). It has not been cleared or approved by the FDA. [facility] is regulated under CLIA as qualified to perform high complexity testing. This test is used for clinical purposes. It should not be regarded as investigational or for research. Performing Laboratory: [facility] [employer] [address] [place] [address] Performed By: #### T OPIX #### [place] [address] Urine Drug Screenon 01-30-20 19 Urine Barbiturates Non-detected Normal Non-Detec t ed [facility] Comment on above: Performed By: #### U DRG2 #### [address] [address] Urine Benzodiazepine Non-detected Normal Non-Det ect ed [facility] Comment on above: Performed By: #### U DRG2 #### [address] [address] Urine PCP Non-detected Normal Non-Detect ed [facility] Comment on above: Performed By: #### U DRG2 #### [address] [address] Urine Opiate Non-detected Normal Non-Detect ed [facility] Comment on above: Performed By: #### U DRG2 #### [address] [address] Urine THC see below Normal Non-Detect ed [facility] Comment on above: Result Comment: Dete cted [...] only. Performed By: #### U DRG2 #### [place] [address] Urine Amphetamine Non-detected Normal Non-Detect ed [facility] Comment on above: Performed By: #### U DRG2 #### [place] [address] Urine Cocaine Metab Non-detected Normal Non-Dete ct ed [facility] Comment on above: Performed By: #### U DRG2 #### [place] [address] Activated PTTon 01-28-2019 aPTT Coag (Bld) [Time] 27.1 s Normal 23.0-32.4 [facility] Comment on above: Result Comment: Unfr actionated [...] laboratory APTT reagent in use throughout the [facility]. Performed By: #### A PTT #### [place] [address] Comprehensive Panelon 2018 ALP [Catalytic activity/Vol] 85 U/L Normal 45-117 [facility] Comment on above: Performed By: #### P 14 #### [place] [address] Bilirubin [Mass/Vol] 0.2 mg/dL Normal 0.2-1.0 [facility] Comment on above: Performed By: #### P 14 #### [facility] [address] [place], [place] [address] Protein [Mass/Vol] 7.6 g/dL Normal 6.4-8.2 [facility] Comment on above: Performed By: #### P 14 #### [facility] [address] [place], [place] [address] ALT [Catalytic activity/Vol] 18 U/L Normal 12-78 [facility] Comment on above: Performed By: #### P 14 #### [facility] [address] [place], [place] [address] AST [Catalytic activity/Vol] 25 U/L Normal 15-37 [facility] Comment on above: Performed By: #### P 14 #### [facility] [address] [place], [place] [address] Creatinine [Mass/Vol] 0.61 mg/dL Normal 0.51-0.95 [facility] Comment on above: Performed By: #### P 14 #### [facility] [address] [place], [place] [address] Albumin [Mass/Vol] 3.8 g/dL Normal 3.4-5.0 [facility] Comment on above: Performed By: #### P 14 #### [facility] [address] [place], [place] [address] Anion gap [Moles/Vol] 9 mmol/L Normal 8-16 [facility] Comment on above: Performed By: #### P 14 #### [facility] [address] [place], [place] [address] CO2 [Moles/Vol] 24 mmol/L Normal 21-32 [facility] Comment on above: Performed By: #### P 14 #### [facility] [address] [place], [place] [address] Glucose [Mass/Vol] 75 mg/dL Normal 70-99 [facility] Comment on above: Performed By: #### P 14 #### [facility] [address] [place], [place] [address] Urea nitrogen [Mass/Vol] 15 mg/dL Normal 7-18 [facility] Comment on above: Performed By: #### P 14 #### [facility] [address] [place] [address] Calcium [Mass/Vol] 8.5 mg/dL Normal 8.5-10.1 [facility] Comment on above: Performed By: #### P 14 #### [facility] [address] [place] [address] Chloride [Moles/Vol] 109 mmol/L High 98-107 [facility] Comment on above: Performed By: #### P 14 #### [facility] [address] [place] [address] Potassium [Moles/Vol] 3.0 mmol/L Low 3.5-5.1 [facility] Comment on above: Performed By: #### P 14 #### [facility] [address] [place] [address] Sodium [Moles/Vol] 139 mmol/L Normal 136-145 [facility] Comment on above: Performed By: #### P 14 #### [facility] [address] [place] [address] Hemogram/Diffon 01-28-2019 Abs Immature Grans 0.03 thou/cmm Normal 0.00-0.05 [facility] Comment on above: Performed By: #### C BCD1 #### [facility] [address] [place] [address] Abs Neut (ANC) 6.56 thou/cmm High 1.56-6.13 [facility] Comment on above: Performed By: #### C BCD1 #### [facility] [address] [place] [address] Abs. Baso 0.08 thou/cmm Normal 0.01-0.08 [facility] Comment on above: Performed By: #### C BCD1 #### [facility] [address] [place] [address] Abs. [place] 0.59 thou/cmm Normal 0.27-0.70 [facility] Comment on above: Performed By: #### C BCD1 #### [facility] [address] [place], [place] [address] Basophils/100 WBC (Bld) 0.9 % Normal [facility] Comment on above: Performed By: #### C BCD1 #### [facility] [address] [place], [place] [address] Eosinophils (Bld) [#/Vol] 0.22 thou/cmm Normal 0.00-0.31 [facility] Comment on above: Performed By: #### C BCD1 #### [facility] [address] [place], [place] [address] Eosinophils/100 WBC (Bld) 2.4 % Normal [facility] Comment on above: Performed By: #### C BCD1 #### [facility] [address] [place], [place] [address] Erythrocyte distribution width (RBC) [Ratio] 12.2 % Normal 11.7-14.4 [facility] Comment on above: Performed By: #### C BCD1 #### [facility] [address] [place], [place] [address] Hematocrit (Bld) [Volume fraction] 42.1 % Normal 34.1-44.9 [facility] Comment on above: Performed By: #### C BCD1 #### [facility] [address] [place], [place] [address] Hemoglobin (Bld) [Mass/Vol] 14.0 g/dL Normal 11.2-15.7 [facility] Comment on above: Performed By: #### C BCD1 #### [facility] [address] [place], [place] [address] Immature Grans 0.30 % Normal [facility] Comment on above: Performed By: #### C BCD1 #### [facility] [address] [place], [place] [address] Lymphocytes (Bld) [#/Vol] 1.60 thou/cmm Normal 1.18-3.74 [facility] Comment on above: Performed By: #### C BCD1 #### [facility] [address] [place], [place] [address] Lymphocytes/100 WBC (Bld) 17.6 % Normal [facility] [facility] Comment on above: Performed By: #### C BCD1 #### [facility] [address] [place], [place] [address] MCH (RBC) [Entitic mass] 32.4 pg High 25.6-32.2 [facility] Comment on above: Performed By: #### C BCD1 #### [facility] [address] [place], [place] [address] MCHC (RBC) [Mass/Vol] 33.3 % Normal 31.6-34.8 [facility] Comment on above: Performed By: #### C BCD1 #### [facility] [address] [place] [address] MCV (RBC) [Entitic vol] 97.5 fL High 79.4-94.8 [facility] Comment on above: Performed By: #### C BCD1 #### [place] [address] Monocytes/100 WBC (Bld) 6.5 % Normal [facility] Comment on above: Performed By: #### C BCD1 #### [facility] [address] [place] [address] Platelet mean volume (Bld) [Entitic vol] 9.5 fL Normal 9.4-12.3 [facility] Comment on above: Performed By: #### C BCD1 #### [place] [address] Platelets (Bld) [#/Vol] 305 thou/cmm Normal 182-369 [facility] Comment on above: Performed By: #### C BCD1 #### [facility] [address] [place] [address] RBC (Bld) [#/Vol] 4.32 mil/cmm Normal 3.93-5.22 [facility] Comment on above: Performed By: #### C BCD1 #### [facility] [address] [place] [address] RDW SD 44.3 fl Normal 36.4-46.3 [facility] Comment on above: Performed By: #### C BCD1 #### [place] [address] Seg Neutrophil 72.3 % Normal [facility] Comment on above: Performed By: #### C BCD1 #### [facility] [address] [place], [place] [address] WBC (Bld) [#/Vol] 9.08 thou/cmm Normal 3.98-10.04 [facility] Comment on above: Performed By: #### C BCD1 #### [facility] [address] [place] [id number] MDRD GFRon 01-28-2019 GFR/1.73 sq M predicted among non-blacks MDRD (S/P/Bld) [Vol rate/Area] mL/min/{1.73_m2} Normal >60mL/min/ 1.73m2 [facility] Comment on above: Result Comment: If t he patient is , multiply the result by 1.210. Performed By: #### G FR #### [place] [id number] Protimeon 01-28-2019 INR Coag (PPP) [Relative time] 1.07 {INR} Normal 0.90-1.30 [facility] Comment on above: Result Comment: Edwige min K Antagonist (VKA) Therapeutic Range: INR 2 to 3 (Target INR of 2.5) Note: For patients treated with VKA drugs, such as warfarin, the [place] [employer] 2012 Guideline recommends [...] to 3.5 target INR of 3). Summer HARRIS, et al. Chest 2012; 141:7S-47S Jermain BRIGGS et al. JACC 2017; 70: 252-289 Performed By: #### P T #### [facility] [address] [place], [place] [address] PT Coag (PPP) [Time] 11.5 s Normal 9.7-13.0 [facility] Comment on above: Performed By: #### P T #### [place] [id number] Office Visit: c-scope for po sitive fecal occult teston 12-21-2016 Alcoholism counseling (procedure) no Invalid Interpretation Code [facility] [employer] Work Phone: Documentation of current medications (procedure) Done Invalid Interpretation Code [facility] [employer] Work Phone: Fall risk assessment No Invalid Interpretation Code [facility] [employer] Work Phone: Protein mass conc no Invalid Interpretation Code [facility] [employer] Work Phone: Protein mass conc Done Invalid Interpretation Code [facility] [employer] Work Phone: Tobacco smoking status NHIS Never Invalid Interpretation Code [facility] [employer] Work Phone: Tobacco smoking status NHIS Former smoker Invalid Interpretation Code [facility] [employer] Work Phone: Tobacco use [facility] Former smoker Invalid Interpretation Code [facility] [employer] Work Phone: Vital Signs Date Time Vital Sign Value Performing Clinician Facility 12-17-2024 12:16-0400 Body temperature 98.7 [degF] Zebulun Beam FABRICATION OPERATOR-C Work Phone: [facility] 12-17-2024 12:16-0400 Diastolic blood pressure 76 mm[Hg] Zebulun Beam FABRICATION OPERATOR-C Work Phone: [facility] 12-17-2024 12:16-0400 Heart rate 71 /min Zebulun Beam FABRICATION OPERATOR-C Work Phone: [facility] 12-17-2024 12:16-0400 Respiratory rate 18 /min Zebulun Beam FABRICATION OPERATOR-C Work Phone: [facility] 12-17-2024 12:16-0400 SaO2% (BldA) [Mass fraction] 99 % Zebulun Beam FABRICATION OPERATOR-C Work Phone: [facility] 12-17-2024 12:16-0400 Systolic blood pressure 124 mm[Hg] Zebulun Beam FABRICATION OPERATOR-C Work Phone: [facility] 12-17-2024 08:33-0400 Body height 160.02 cm Zebulun Beam FABRICATION OPERATOR-C Work Phone: [facility] 12-17-2024 08:33-0400 Body mass index (BMI) [Ratio] 15 kg/m2 Zebulun Beam FABRICATION OPERATOR-C Work Phone: [facility] 12-17-2024 08:33-0400 Body weight 38.4 kg Zebulun Beam FABRICATION OPERATOR-C Work Phone: [facility] 11-29-2024 12:11-0400 Body mass index (BMI) [Ratio] 14.53 kg/m2 Jimmie Poole MD Work Phone: [facility] 11-29-2024 12:11-0400 Body temperature 98.2 [degF] Jimmie Poole MD Work Phone: [facility] 11-29-2024 12:11-0400 Body weight 37.2 kg Jimmie Poole MD Work Phone: [facility] 11-29-2024 12:11-0400 Diastolic blood pressure 54 mm[Hg] Jimmie Poole MD Work Phone: [facility] 11-29-2024 12:11-0400 Heart rate 106 /min Jimmie Poole MD Work Phone: [facility] 11-29-2024 12:11-0400 SaO2% (BldA) [Mass fraction] 99 % Jimmie Poole MD Work Phone: [facility] 11-29-2024 12:11-0400 Systolic blood pressure 90 mm[Hg] Jimmie Poole MD Work Phone: [facility] 11-29-2024 11:54-0400 Body mass index (BMI) [Ratio] 14.53 kg/m2 Lab/Port Wstr Work Phone: [facility] 11-29-2024 11:54-0400 Body weight 37.2 kg Lab/Port Wstr Work Phone: [facility] 11-25-2024 19:12-0400 Body temperature 98.4 [degF] Zebulun Beam FABRICATION OPERATOR-C Work Phone: 6(427)374-803332 [place] [address] 11-25-2024 19:12-0400 Diastolic blood pressure 66 mm[Hg] Zebulun Beam FABRICATION OPERATOR-C Work Phone: 5(291)998-829576 [place] [address] 11-25-2024 19:12-0400 Heart rate 74 /min Zebulun Beam FABRICATION OPERATOR-C Work Phone: 8(768)493-731276 [place] [address] 11-25-2024 19:12-0400 Respiratory rate 16 /min Zebulun Beam FABRICATION OPERATOR-C Work Phone: 5(368)886-598806 [address] 11-25-2024 19:12-0400 SaO2% (BldA) [Mass fraction] 99 % Zebulun Beam FABRICATION OPERATOR-C Work Phone: 8(941)109-476506 [address] 11-25-2024 19:12-0400 Systolic blood pressure 118 mm[Hg] Zebulun Beam FABRICATION OPERATOR-C Work Phone: 6(526)021-681476 [place] [address] 11-25-2024 17:00-0400 Body mass index (BMI) [Ratio] 15.2 kg/m2 Zebulun Beam FABRICATION OPERATOR-C Work Phone: 8(914)206-371176 [place] [address] 11-25-2024 17:00-0400 Body weight 39 kg Zebulun Beam FABRICATION OPERATOR-C Work Phone: 3(523)473-719476 [place] [address] 11-25-2024 16:21-0400 Body height 160.02 cm Zebulun Beam FABRICATION OPERATOR-C Work Phone: 4(366)194-657276 [place] [address] 11-21-2024 01:40-0400 Diastolic blood pressure 65 mm[Hg] Zebulun Beam FABRICATION OPERATOR-C Work Phone: 5(027)024-934076 [place] [address] 11-21-2024 01:40-0400 Heart rate 106 /min Zebulun Beam FABRICATION OPERATOR-C Work Phone: 4(876)493-242876 [place] [address] 11-21-2024 01:40-0400 Respiratory rate 24 /min Zebulun Beam FABRICATION OPERATOR-C Work Phone: 4(480)452-443676 [place] [address] 11-21-2024 01:40-0400 Systolic blood pressure 92 mm[Hg] Zebulun Beam FABRICATION OPERATOR-C Work Phone: 7(188)917-412876 [place] [address] 11-21-2024 01:30-0400 Inhaled oxygen flow rate 15 L/min Zebulun Beam FABRICATION OPERATOR-C Work Phone: 0(303)090-284076 [place] [address] 11-21-2024 01:30-0400 SaO2% (BldA) [Mass fraction] 100 % Zebulun Beam FABRICATION OPERATOR-C Work Phone: 8(479)435-739576 [place] [address] 11-21-2024 01:12-0400 Body temperature 98 [degF] Zebulun Beam FABRICATION OPERATOR-C Work Phone: 7(421)298-925476 [place] [address] 11-21-2024 00:58-0400 Body weight 43.9 kg Zebulun Beam FABRICATION OPERATOR-C Work Phone: 2(457)100-047576 [place] [address] 11-20-2024 21:45-0400 Body height 160.02 cm Zebulun Beam FABRICATION OPERATOR-C Work Phone: 3(216)752-347976 [place] [address] 11-20-2024 21:45-0400 Body mass index (BMI) [Ratio] 17.1 kg/m2 Zebulun Beam FABRICATION OPERATOR-C Work Phone: 6(185)126-301176 [place] [address] 11-19-2024 09:45-0400 Body temperature 98.1 [degF] Treatment Wstr Work Phone: [facility] 11-19-2024 09:45-0400 Diastolic blood pressure 74 mm[Hg] Treatment Wstr Work Phone: [facility] 11-19-2024 09:45-0400 Heart rate 104 /min Treatment Wstr Work Phone: [facility] 11-19-2024 09:45-0400 Respiratory rate 18 /min Treatment Wstr Work Phone: [facility] 11-19-2024 09:45-0400 SaO2% (BldA) [Mass fraction] 99 % Treatment Wstr Work Phone: [facility] 11-19-2024 09:45-0400 Systolic blood pressure 113 mm[Hg] Treatment Wstr Work Phone: [facility] 11-18-2024 14:46-0400 Body mass index (BMI) [Ratio] 15.06 kg/m2 Jimmie Poole MD Work Phone: [facility] 11-18-2024 14:46-0400 Body temperature 98.1 [degF] Jimmie Poole MD Work Phone: [facility] 11-18-2024 14:46-0400 Body weight 38.56 kg Jimmie Poole MD Work Phone: [facility] 11-18-2024 14:46-0400 Diastolic blood pressure 58 mm[Hg] Jimmie Poole MD Work Phone: [facility] 11-18-2024 14:46-0400 Heart rate 96 /min Jimmie Poole MD Work Phone: [facility] 11-18-2024 14:46-0400 SaO2% (BldA) [Mass fraction] 98 % Jimmie Poole MD Work Phone: [facility] 11-18-2024 14:46-0400 Systolic blood pressure 94 mm[Hg] Jimmie Poole MD Work Phone: [facility] 11-18-2024 14:24-0400 Body mass index (BMI) [Ratio] 15.06 kg/m2 Lab/Port Wstr Work Phone: [facility] 11-18-2024 14:24-0400 Body weight 38.56 kg Lab/Port Wstr Work Phone: [facility] 11-08-2024 08:40-0400 Body temperature 98.4 [degF] Zebulun Beam FABRICATION OPERATOR-C Work Phone: [facility] 11-08-2024 08:40-0400 Diastolic blood pressure 60 mm[Hg] Zebulun Beam FABRICATION OPERATOR-C Work Phone: 6(466)875-429376 [place] [address] 11-08-2024 08:40-0400 Heart rate 76 /min Zebulun Beam FABRICATION OPERATOR-C Work Phone: 0(262)101-517776 [place] [address] 11-08-2024 08:40-0400 Respiratory rate 17 /min Zebulun Beam FABRICATION OPERATOR-C Work Phone: 0(151)966-558376 [place] [address] 11-08-2024 08:40-0400 SaO2% (BldA) [Mass fraction] 98 % Zebulun Beam FABRICATION OPERATOR-C Work Phone: 6(075)504-758076 [place] [address] 11-08-2024 08:40-0400 Systolic blood pressure 117 mm[Hg] Zebulun Beam FABRICATION OPERATOR-C Work Phone: 4(428)619-188876 [place] [address] 11-07-2024 16:28-0400 Body height 160.02 cm Zebulun Beam FABRICATION OPERATOR-C Work Phone: 0(323)453-990976 [place] [address] 11-07-2024 16:28-0400 Body mass index (BMI) [Ratio] 15.7 kg/m2 Zebulun Beam FABRICATION OPERATOR-C Work Phone: 2(908)879-002676 [place] [address] 11-07-2024 16:28-0400 Body weight 40.36 kg Zebulun Beam FABRICATION OPERATOR-C Work Phone: 6(997)736-663776 [place] [address] 11-07-2024 16:15-0400 Body temperature 97.8 [degF] Zebulun Beam FABRICATION OPERATOR-C Work Phone: 9(084)968-719276 [place] [address] 11-07-2024 16:15-0400 Diastolic blood pressure 88 mm[Hg] Zebulun Beam FABRICATION OPERATOR-C Work Phone: 0(966)651-133976 [place] [address] 11-07-2024 16:15-0400 Heart rate 76 /min Zebulun Beam FABRICATION OPERATOR-C Work Phone: 1(420)668-082576 [place] [address] 11-07-2024 16:15-0400 Respiratory rate 18 /min Zebulun Beam FABRICATION OPERATOR-C Work Phone: 3(352)611-859776 [place] [address] 11-07-2024 16:15-0400 SaO2% (BldA) [Mass fraction] 96 % Zebulun Beam FABRICATION OPERATOR-C Work Phone: [facility] 11-07-2024 16:15-0400 Systolic blood pressure 135 mm[Hg] Zebulun Beam FABRICATION OPERATOR-C Work Phone: [facility] 11-07-2024 11:22-0400 Body mass index (BMI) [Ratio] 14.7 kg/m2 Zebulun Beam FABRICATION OPERATOR-C Work Phone: [facility] 11-07-2024 11:22-0400 Body weight 39 kg Zebulun Beam FABRICATION OPERATOR-C Work Phone: [facility] 11-07-2024 11:18-0400 Body height 162.56 cm Zebulun Beam FABRICATION OPERATOR-C Work Phone: [facility] 11-07-2024 09:22-0400 Body temperature 97 [degF] Treatment Wstr Work Phone: [facility] 11-07-2024 09:22-0400 Diastolic blood pressure 67 mm[Hg] Treatment Wstr Work Phone: [facility] 11-07-2024 09:22-0400 Heart rate 78 /min Treatment Wstr Work Phone: [facility] 11-07-2024 09:22-0400 SaO2% (BldA) [Mass fraction] 99 % Treatment Wstr Work Phone: [facility] 11-07-2024 09:22-0400 Systolic blood pressure 124 mm[Hg] Treatment Wstr Work Phone: [facility] 11-06-2024 12:32-0400 Body temperature 97.9 [degF] Treatment Wstr Work Phone: [facility] 11-06-2024 12:32-0400 Diastolic blood pressure 58 mm[Hg] Treatment Wstr Work Phone: [facility] 11-06-2024 12:32-0400 Heart rate 79 /min Treatment Wstr Work Phone: [facility] 11-06-2024 12:32-0400 Respiratory rate 18 /min Treatment Wstr Work Phone: [facility] 11-06-2024 12:32-0400 SaO2% (BldA) [Mass fraction] 98 % Treatment Wstr Work Phone: [facility] 11-06-2024 12:32-0400 Systolic blood pressure 95 mm[Hg] Treatment Wstr Work Phone: [facility] 11-06-2024 09:37-0400 Body height 160 cm Treatment Wstr Work Phone: [facility] 11-06-2024 09:37-0400 Body mass index (BMI) [Ratio] 15.95 kg/m2 Treatment Wstr Work Phone: [facility] 11-06-2024 09:37-0400 Body weight 40.82 kg Treatment Wstr Work Phone: [facility] 11-05-2024 10:25-0400 Body mass index (BMI) [Ratio] 15.53 kg/m2 Jimmie Poole MD Work Phone: [facility] 11-05-2024 10:25-0400 Body temperature 97.7 [degF] Jimmie Poole MD Work Phone: [facility] 11-05-2024 10:25-0400 Body weight 41.05 kg Jimmie oPole MD Work Phone: [facility] 11-05-2024 10:25-0400 Diastolic blood pressure 54 mm[Hg] Jimmie Poole MD Work Phone: [facility] 11-05-2024 10:25-0400 Heart rate 85 /min Jimmie Poole MD Work Phone: [facility] 11-05-2024 10:25-0400 SaO2% (BldA) [Mass fraction] 98 % Jimmie Poole MD Work Phone: [facility] 11-05-2024 10:25-0400 Systolic blood pressure 92 mm[Hg] Jimmie Poole MD Work Phone: [facility] 10-23-2024 11:38-0400 Body temperature 97.9 [degF] Zebulun Beam FABRICATION OPERATOR-C Work Phone: [facility] 10-23-2024 11:38-0400 Diastolic blood pressure 88 mm[Hg] Zebulun Beam FABRICATION OPERATOR-C Work Phone: [facility] 10-23-2024 11:38-0400 Heart rate 99 /min Zebulun Beam FABRICATION OPERATOR-C Work Phone: [facility] 10-23-2024 11:38-0400 Respiratory rate 18 /min Zebulun Beam FABRICATION OPERATOR-C Work Phone: 1(341)620-511732 [place] [address] 10-23-2024 11:38-0400 SaO2% (BldA) [Mass fraction] 99 % Zebulun Beam FABRICATION OPERATOR-C Work Phone: [facility] 10-23-2024 11:38-0400 Systolic blood pressure 132 mm[Hg] Zebulun Beam FABRICATION OPERATOR-C Work Phone: [facility] 10-23-2024 09:17-0400 Body height 162.56 cm Zebulun Beam FABRICATION OPERATOR-C Work Phone: [facility] 10-10-2024 14:00-0400 Body mass index (BMI) [Ratio] 15.35 kg/m2 Jimmie Poole MD Work Phone: [facility] 10-10-2024 14:00-0400 Body temperature 98.1 [degF] Jimmie Poole MD Work Phone: [facility] 10-10-2024 14:00-0400 Body weight 40.6 kg Jimmie Poole MD Work Phone: [facility] 10-10-2024 14:00-0400 Diastolic blood pressure 53 mm[Hg] Jimmie Poole MD Work Phone: [facility] 10-10-2024 14:00-0400 Heart rate 79 /min Jimmie Poole MD Work Phone: [facility] 10-10-2024 14:00-0400 SaO2% (BldA) [Mass fraction] 98 % Jimmie Poole MD Work Phone: [facility] 10-10-2024 14:00-0400 Systolic blood pressure 91 mm[Hg] Jimmie Poole MD Work Phone: [facility] 09-25-2024 14:34-0400 Body mass index (BMI) [Ratio] 15.1 kg/m2 Jimmie Poole MD Work Phone: [facility] 09-25-2024 14:34-0400 Body temperature 97.5 [degF] Jimmie Poole MD Work Phone: [facility] 09-25-2024 14:34-0400 Body weight 39.92 kg Jimmie Poole MD Work Phone: [facility] 09-25-2024 14:34-0400 Diastolic blood pressure 52 mm[Hg] Jimmie Poole MD Work Phone: [facility] 09-25-2024 14:34-0400 Heart rate 79 /min Jimmie Poole MD Work Phone: [facility] 09-25-2024 14:34-0400 SaO2% (BldA) [Mass fraction] 98 % Jimmie Poole MD Work Phone: [facility] 09-25-2024 14:34-0400 Systolic blood pressure 94 mm[Hg] Jimmie Poole MD Work Phone: [facility] 09-16-2024 10:33-0400 Body height 162.6 cm Tessa Spring MD Work Phone: [facility] 09-16-2024 10:33-0400 Body mass index (BMI) [Ratio] 14.75 kg/m2 Tessa Spring MD Work Phone: [facility] 09-16-2024 10:33-0400 Body temperature 97.11 [degF] Tsesa Spring MD Work Phone: [facility] 09-16-2024 10:33-0400 Body weight 39 kg Tessa Spring MD Work Phone: [facility] 09-16-2024 10:33-0400 Diastolic blood pressure 72 mm[Hg] Tessa Spring MD Work Phone: [facility] 09-16-2024 10:33-0400 Heart rate 92 /min Tessa Spring MD Work Phone: [facility] 09-16-2024 10:33-0400 SaO2% (BldA) [Mass fraction] 97 % Tessa Spring MD Work Phone: [facility] 09-16-2024 10:33-0400 Systolic blood pressure 101 mm[Hg] Tessa Spring MD Work Phone: [facility] 09-13-2024 08:36-0400 Body temperature 98 [degF] Zebulun Beam FABRICATION OPERATOR-C Work Phone: 5(690)413-585732 [place] [address] 09-13-2024 08:36-0400 Diastolic blood pressure 69 mm[Hg] Zebulun Beam FABRICATION OPERATOR-C Work Phone: 7(627)333-121932 [place] [address] 09-13-2024 08:36-0400 Heart rate 70 /min Zebulun Beam FABRICATION OPERATOR-C Work Phone: 2(550)057-218632 [place] [address] 09-13-2024 08:36-0400 Respiratory rate 16 /min Zebulun Beam FABRICATION OPERATOR-C Work Phone: 5(628)202-498132 [place] [address] 09-13-2024 08:36-0400 SaO2% (BldA) [Mass fraction] 99 % Zebulun Beam FABRICATION OPERATOR-C Work Phone: 7(766)622-751232 [place] [address] 09-13-2024 08:36-0400 Systolic blood pressure 106 mm[Hg] Zebulun Beam FABRICATION OPERATOR-C Work Phone: [facility] 09-11-2024 14:41-0400 Body height 162.56 cm Zebulun Beam FABRICATION OPERATOR-C Work Phone: 2(988)805-120332 [place] [address] 09-11-2024 14:41-0400 Body weight 40 kg Benbureji Beam FABRICATION OPERATOR-C Work Phone: [facility] 09-10-2024 13:44-0400 Body mass index (BMI) [Ratio] 15.1 kg/m2 Zebulun Beam FABRICATION OPERATOR-C Work Phone: [facility] 07-31-2024 08:27-0400 Body mass index (BMI) [Ratio] 16.13 kg/m2 Jimmie Poole MD Work Phone: [facility] 07-31-2024 08:27-0400 Body temperature 97.39 [degF] Jimmie Poole MD Work Phone: [facility] 07-31-2024 08:27-0400 Body weight 42.64 kg Jimmie Poole MD Work Phone: [facility] 07-31-2024 08:27-0400 Diastolic blood pressure 62 mm[Hg] Jimmie Poole MD Work Phone: [facility] 07-31-2024 08:27-0400 Heart rate 77 /min Jimmie Poole MD Work Phone: [facility] 07-31-2024 08:27-0400 SaO2% (BldA) [Mass fraction] 100 % Jimmie Poole MD Work Phone: [facility] 07-31-2024 08:27-0400 Systolic blood pressure 94 mm[Hg] Jimmie Poole MD Work Phone: [facility] 07-11-2024 13:22-0400 Body temperature 98.3 [degF] Christie Sánchez FABRICATION OPERATOR-C Work Phone: [facility] 07-11-2024 13:22-0400 Diastolic blood pressure 84 mm[Hg] Christie Sánchez FABRICATION OPERATOR-C Work Phone: [facility] 07-11-2024 13:22-0400 Heart rate 99 /min Christie Sánchez FABRICATION OPERATOR-C Work Phone: [facility] 07-11-2024 13:22-0400 Respiratory rate 16 /min Christie Gonzalo FABRICATION OPERATOR-C Work Phone: [facility] 07-11-2024 13:22-0400 SaO2% (BldA) [Mass fraction] 98 % Christie Sánchez FABRICATION OPERATOR-C Work Phone: [facility] 07-11-2024 13:22-0400 Systolic blood pressure 122 mm[Hg] Christieevan Sánchez FABRICATION OPERATOR-C Work Phone: 2(760)178-541432 [place] [address] 07-11-2024 11:00-0400 Body height 162.56 cm Christie Gonzalo FABRICATION OPERATOR-C Work Phone: 0(104)261-861432 [place] [address] 07-11-2024 11:00-0400 Body mass index (BMI) [Ratio] 15.7 kg/m2 Christie Gonzalo FABRICATION OPERATOR-C Work Phone: [facility] 07-11-2024 11:00-0400 Body weight 41.77 kg Christieevan Sánchez FABRICATION OPERATOR-C Work Phone: [facility] 06-17-2024 09:57-0400 Body mass index (BMI) [Ratio] 15.53 kg/m2 Adrienne Bahena Work Phone: [facility] 06-17-2024 09:57-0400 Body temperature 96.49 [degF] Adrienne Bahena Work Phone: [facility] 06-17-2024 09:57-0400 Body weight 41.05 kg Adriennedelmy Bahena Work Phone: [facility] 06-17-2024 09:57-0400 Diastolic blood pressure 63 mm[Hg] Adrienne Bahena Work Phone: [facility] 06-17-2024 09:57-0400 Heart rate 107 /min Adrienne Bahena Work Phone: [facility] 06-17-2024 09:57-0400 SaO2% (BldA) [Mass fraction] 99 % Adrienne Bahena Work Phone: [facility] 06-17-2024 09:57-0400 Systolic blood pressure 94 mm[Hg] Adrienne Bahena Work Phone: [facility] 05-13-2024 11:44-0500 Body height 162.6 cm Fe Vaughnter [employer] MA[employer]GER Work Phone: [facility] 05-13-2024 11:44-0500 Body mass index (BMI) [Ratio] 16.34 kg/m2 Fe Vaughnter GREEN END MAN.AQUATIC CENTRE MANAGER Work Phone: [facility] 05-13-2024 11:44-0500 Body weight 43.18 kg Fe Vaughnter GREEN END MAN.AQUATIC CENTRE MANAGER Work Phone: [facility] 05-13-2024 11:44-0500 Heart rate 97 /min Fe Madridpster GREEN END MAN.AQUATIC CENTRE MANAGER Work Phone: [facility] 05-13-2024 11:44-0500 SaO2% (BldA) [Mass fraction] 97 % Fe Madridpster GREEN END MAN.AQUATIC CENTRE MANAGER Work Phone: [facility] 05-06-2024 11:25-0500 Body mass index (BMI) [Ratio] 16.05 kg/m2 Adrienne Bahena Work Phone: [facility] 05-06-2024 11:25-0500 Body temperature 97.11 [degF] Adrienne Bahena Work Phone: [facility] 05-06-2024 11:25-0500 Body weight 42.41 kg Adrienne Bahena Work Phone: [facility] 05-06-2024 11:25-0500 Diastolic blood pressure 52 mm[Hg] Adrienne Bahena Work Phone: [facility] 05-06-2024 11:25-0500 Heart rate 83 /min Adrienne Bahena Work Phone: [facility] 05-06-2024 11:25-0500 SaO2% (BldA) [Mass fraction] 100 % Adrienne Bahena Work Phone: [facility] 05-06-2024 11:25-0500 Systolic blood pressure 88 mm[Hg] Adrienne Bahena Work Phone: [facility] 04-16-2024 14:03-0500 Body mass index (BMI) [Ratio] 15.79 kg/m2 Adrienne Bahena Work Phone: [facility] 04-16-2024 14:03-0500 Body temperature 98.6 [degF] Adrienne Bahena Work Phone: [facility] 04-16-2024 14:03-0500 Body weight 41.73 kg Adrienne Bahena Work Phone: [facility] 04-16-2024 14:03-0500 Diastolic blood pressure 65 mm[Hg] Adrienne Bahena Work Phone: [facility] 04-16-2024 14:03-0500 Heart rate 95 /min Adrienne Bahena Work Phone: [facility] 04-16-2024 14:03-0500 SaO2% (BldA) [Mass fraction] 96 % Adrienne Bahena Work Phone: [facility] 04-16-2024 14:03-0500 Systolic blood pressure 90 mm[Hg] Adrienne Bahena Work Phone: [facility] 04-08-2024 16:35-0500 Diastolic blood pressure 72 mm[Hg] Christie Sáncehz FABRICATION OPERATOR-C Work Phone: [facility] 04-08-2024 16:35-0500 Heart rate 105 /min Christie Sánchez FABRICATION OPERATOR-C Work Phone: [facility] 04-08-2024 16:35-0500 Respiratory rate 18 /min Christie Sánchez FABRICATION OPERATOR-C Work Phone: [facility] 04-08-2024 16:35-0500 SaO2% (BldA) [Mass fraction] 98 % Christie Sánchez FABRICATION OPERATOR-C Work Phone: [facility] 04-08-2024 16:35-0500 Systolic blood pressure 128 mm[Hg] Christie Sánchez FABRICATION OPERATOR-C Work Phone: [facility] 04-08-2024 14:35-0500 Body mass index (BMI) [Ratio] 16 kg/m2 Christie Sánchez FABRICATION OPERATOR-C Work Phone: [facility] 04-08-2024 14:35-0500 Body temperature 96.8 [degF] Christie Sánchez FABRICATION OPERATOR-C Work Phone: [facility] 04-08-2024 14:35-0500 Body weight 42.18 kg Christie Sánchez FABRICATION OPERATOR-C Work Phone: [facility] 04-08-2024 13:56-0500 Body mass index (BMI) [Ratio] 16.01 kg/m2 Jeremiah Adame MD Work Phone: [facility] 04-08-2024 13:56-0500 Body temperature 98.2 [degF] Jeremiah Adame MD Work Phone: [facility] 04-08-2024 13:56-0500 Body weight 42.3 kg Jeremiah Adame MD Work Phone: [facility] 04-08-2024 13:56-0500 Diastolic blood pressure 62 mm[Hg] Jeremiah Adame MD Work Phone: [facility] 04-08-2024 13:56-0500 Heart rate 118 /min Jeremiah Adame MD Work Phone: [facility] 04-08-2024 13:56-0500 Respiratory rate 18 /min Jeremiah Adame MD Work Phone: [facility] 04-08-2024 13:56-0500 SaO2% (BldA) [Mass fraction] 99 % Jeremiah Adame MD Work Phone: [facility] 04-08-2024 13:56-0500 Systolic blood pressure 104 mm[Hg] Jeremiah Adame MD Work Phone: [facility] 03-07-2024 10:18-0500 Body height 162.6 cm Tessa Spring MD Work Phone: [facility] 03-07-2024 10:18-0500 Body mass index (BMI) [Ratio] 16.57 kg/m2 Tessa Spring MD Work Phone: [facility] 03-07-2024 10:18-0500 Body weight 43.8 kg Tessa Spring MD Work Phone: [facility] 03-07-2024 10:18-0500 Diastolic blood pressure 72 mm[Hg] Tessa Spring MD Work Phone: [facility] 03-07-2024 10:18-0500 Heart rate 73 /min Tessa Spring MD Work Phone: [facility] 03-07-2024 10:18-0500 Systolic blood pressure 115 mm[Hg] Tessa Spring MD Work Phone: [facility] 02-03-2024 09:48-0500 Body temperature 98.01 [degF] Yuliaalec Xie RN Work Phone: [facility] 02-03-2024 09:48-0500 Diastolic blood pressure 64 mm[Hg] Yulia Xie RN Work Phone: [facility] 02-03-2024 09:48-0500 Heart rate 84 /min Yulia Xie RN Work Phone: [facility] 02-03-2024 09:48-0500 Respiratory rate 16 /min Yulia Xie RN Work Phone: [facility] 02-03-2024 09:48-0500 SaO2% (BldA) [Mass fraction] 99 % Yuliaalec Xie RN Work Phone: [facility] 02-03-2024 09:48-0500 Systolic blood pressure 102 mm[Hg] Yulia Xie RN Work Phone: [facility] 02-01-2024 10:46-0500 Body mass index (BMI) [Ratio] 15.28 kg/m2 Jimmie Poole MD Work Phone: [facility] 02-01-2024 10:46-0500 Body temperature 97.39 [degF] Jimmie Poole MD Work Phone: [facility] 02-01-2024 10:46-0500 Body weight 40.37 kg Jimmie Poole MD Work Phone: [facility] 02-01-2024 10:46-0500 Diastolic blood pressure 66 mm[Hg] Jimmie Poole MD Work Phone: [facility] 02-01-2024 10:46-0500 Heart rate 95 /min Jimmie Poole MD Work Phone: [facility] 02-01-2024 10:46-0500 SaO2% (BldA) [Mass fraction] 98 % Jimmie Poole MD Work Phone: [facility] 02-01-2024 10:46-0500 Systolic blood pressure 97 mm[Hg] Jimmie Poole MD Work Phone: [facility] 01-29-2024 09:59-0500 Body mass index (BMI) [Ratio] 15.17 kg/m2 Fe Edmond GREEN END MAN.AQUATIC CENTRE MANAGER Work Phone: [facility] 01-29-2024 09:59-0500 Body weight 40.1 kg Fe Edmond GREEN END MAN.AQUATIC CENTRE MANAGER Work Phone: [facility] 01-29-2024 09:59-0500 Diastolic blood pressure 68 mm[Hg] Fe Edmond GREEN END MAN.AQUATIC CENTRE MANAGER Work Phone: [facility] 01-29-2024 09:59-0500 Heart rate 81 /min Fe Edmond GREEN END MAN.AQUATIC CENTRE MANAGER Work Phone: [facility] 01-29-2024 09:59-0500 Respiratory rate 18 /min Fe Edmond GREEN END MAN.AQUATIC CENTRE MANAGER Work Phone: [facility] 01-29-2024 09:59-0500 SaO2% (BldA) [Mass fraction] 99 % Fe Edmond GREEN END MAN.AQUATIC CENTRE MANAGER Work Phone: [facility] 01-29-2024 09:59-0500 Systolic blood pressure 130 mm[Hg] Fe Edmond APRN.AQUATIC CENTRE MANAGER Work Phone: [facility] 01-26-2024 14:20-0400 Body temperature 98.1 [degF] Yuliaalec Xie RN Work Phone: [facility] 01-26-2024 14:20-0400 Diastolic blood pressure 60 mm[Hg] Yulia RN Work Phone: [facility] 01-26-2024 14:20-0400 Heart rate 92 /min Yulia RN Work Phone: [facility] 01-26-2024 14:20-0400 Respiratory rate 16 /min Yulia Most RN Work Phone: [facility] 01-26-2024 14:20-0400 SaO2% (BldA) [Mass fraction] 99 % Yulia Most RN Work Phone: [facility] 01-26-2024 14:20-0400 Systolic blood pressure 96 mm[Hg] Yulia RN Work Phone: [facility] 01-23-2024 11:39-0400 Body temperature 98.6 [degF] Montserrat Shobha VENTILATION MECHANIC Work Phone: [facility] 01-23-2024 11:39-0400 Diastolic blood pressure 68 mm[Hg] Montserrat Shobha VENTILATION MECHANIC Work Phone: [facility] 01-23-2024 11:39-0400 Heart rate 82 /min Montserrat Shobha VENTILATION MECHANIC Work Phone: [facility] 01-23-2024 11:39-0400 Respiratory rate 16 /min Montserrat Shobha VENTILATION MECHANIC Work Phone: [facility] 01-23-2024 11:39-0400 SaO2% (BldA) [Mass fraction] 99 % Montserrat Shobha VENTILATION MECHANIC Work Phone: [facility] 01-23-2024 11:39-0400 Systolic blood pressure 110 mm[Hg] Montserrat Yeager VENTILATION MECHANIC Work Phone: [facility] 01-19-2024 14:48-0400 Body temperature 98.6 [degF] Shelby Brown PT Work Phone: [facility] 01-19-2024 14:48-0400 Diastolic blood pressure 70 mm[Hg] Shelby Brown PT Work Phone: [facility] 01-19-2024 14:48-0400 Heart rate 71 /min Shelby Brown PT Work Phone: [facility] 01-19-2024 14:48-0400 Respiratory rate 16 /min Shelby Brown PT Work Phone: [facility] 01-19-2024 14:48-0400 SaO2% (BldA) [Mass fraction] 99 % Shelby Brown PT Work Phone: [facility] 01-19-2024 14:48-0400 Systolic blood pressure 104 mm[Hg] Shelby Brown PT Work Phone: [facility] 01-19-2024 12:39-0400 Body temperature 98.01 [degF] Yulia Xie RN Work Phone: [facility] 01-19-2024 12:39-0400 Diastolic blood pressure 62 mm[Hg] Yuliaalec Xie RN Work Phone: [facility] 01-19-2024 12:39-0400 Heart rate 92 /min Yulia Most RN Work Phone: [facility] 01-19-2024 12:39-0400 Respiratory rate 16 /min Yulia Most RN Work Phone: [facility] 01-19-2024 12:39-0400 SaO2% (BldA) [Mass fraction] 99 % Yulia Most RN Work Phone: [facility] 01-19-2024 12:39-0400 Systolic blood pressure 98 mm[Hg] Yulia Xie RN Work Phone: [facility] 01-18-2024 10:15-0400 Body height 162.6 cm Tessa Spring MD Work Phone: [facility] 01-18-2024 10:15-0400 Body mass index (BMI) [Ratio] 14.99 kg/m2 Tessa Spring MD Work Phone: [facility] 01-18-2024 10:15-0400 Body weight 39.6 kg Tessa Spring MD Work Phone: [facility] 01-18-2024 10:15-0400 Diastolic blood pressure 67 mm[Hg] Tessa Spring MD Work Phone: [facility] 01-18-2024 10:15-0400 Heart rate 79 /min Tessa Spring MD Work Phone: [facility] 01-18-2024 10:15-0400 Systolic blood pressure 104 mm[Hg] Tessa Spring MD Work Phone: [facility] 01-16-2024 09:57-0400 Heart rate 98 /min Dash Leonard PT Work Phone: [facility] 01-16-2024 09:57-0400 SaO2% (BldA) [Mass fraction] 99 % Dash Leonard PT Work Phone: [facility] 01-16-2024 09:36-0400 Body temperature 97.5 [degF] Dash Leonard PT Work Phone: [facility] 01-16-2024 09:36-0400 Diastolic blood pressure 60 mm[Hg] Dash Leonard PT Work Phone: [facility] 01-16-2024 09:36-0400 Respiratory rate 16 /min Dash Leonard PT Work Phone: [facility] 01-16-2024 09:36-0400 Systolic blood pressure 108 mm[Hg] Dashregina Phelpsjessica PT Work Phone: [facility] 01-13-2024 14:07-0400 Body temperature 98.49 [degF] Shelby MolinaestelaRima PT Work Phone: [facility] 01-13-2024 14:07-0400 Diastolic blood pressure 60 mm[Hg] Shelby Brown PT Work Phone: [facility] 01-13-2024 14:07-0400 Heart rate 92 /min Shelby Brown PT Work Phone: [facility] 01-13-2024 14:07-0400 Respiratory rate 16 /min Shelby Kevin PT Work Phone: [facility] 01-13-2024 14:07-0400 SaO2% (BldA) [Mass fraction] 97 % Shelby Brown PT Work Phone: [facility] 01-13-2024 14:07-0400 Systolic blood pressure 90 mm[Hg] Shelby JesseestelaRima PT Work Phone: [facility] 01-11-2024 17:18-0400 Body temperature 98.4 [degF] Pricila Peace RN Work Phone: [facility] 01-11-2024 17:18-0400 Diastolic blood pressure 64 mm[Hg] Pricila Peace RN Work Phone: [facility] 01-11-2024 17:18-0400 Heart rate 95 /min Pricila Peace RN Work Phone: [facility] 01-11-2024 17:18-0400 Respiratory rate 16 /min Pricila Peace RN Work Phone: [facility] 01-11-2024 17:18-0400 SaO2% (BldA) [Mass fraction] 97 % Pricila Peace RN Work Phone: [facility] 01-11-2024 17:18-0400 Systolic blood pressure 98 mm[Hg] Pricila Peace RN Work Phone: [facility] 12-28-2023 08:57-0400 Body height 162.6 cm Pacc 2 Work Phone: [facility] 12-28-2023 08:57-0400 Body mass index (BMI) [Ratio] 15.93 kg/m2 Pacc 2 Work Phone: [facility] 12-28-2023 08:57-0400 Body temperature 97.39 [degF] Pacc 2 Work Phone: [facility] 12-28-2023 08:57-0400 Body weight 42.1 kg Pacc 2 Work Phone: [facility] 12-28-2023 08:57-0400 Diastolic blood pressure 68 mm[Hg] Pacc 2 Work Phone: [facility] 12-28-2023 08:57-0400 Heart rate 89 /min Pacc 2 Work Phone: [facility] 12-28-2023 08:57-0400 Respiratory rate 16 /min Pacc 2 Work Phone: [facility] 12-28-2023 08:57-0400 SaO2% (BldA) [Mass fraction] 99 % Pacc 2 Work Phone: [facility] 12-28-2023 08:57-0400 Systolic blood pressure 94 mm[Hg] Pacc 2 Work Phone: [facility] 12-18-2023 10:02-0400 Body height 162.6 cm Tessa Spring MD Work Phone: [facility] 12-18-2023 10:02-0400 Body mass index (BMI) [Ratio] 16.07 kg/m2 Tessa Spring MD Work Phone: [facility] 12-18-2023 10:02-0400 Body temperature 97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 encounter Pricila Peace RN Work Phone: [facility] Comment on above: Home Care (Medicatio n interaction ) Start: 01-10-2024 End: 01-10-2024 Telephone encounter Tessa Spring MD Work Phone: General Surgery Comment on above: Nausea (vomitting); Senior Counsel Commercial - Other; Returning Patient's Call Home Care (Spoke wit h patients friend and SOC confirmed for 01/11/24 ) Start: 01-09-2024 End: 01-09-2024 Orders Only Tessa Spring MD Work Phone: General Surgery Comment on above: Perforated appendix (Primary Dx) Start: 01-08-2024 End: 01-08-2024 Telephone encounter Olga Thompsonterson Work Phone: [facility] Comment on above: Home Care (CONFIRMAT ION CALL) Home Care () Start: 01-04-2024 End: 11-06-2024 Telephone encounter Mary Elmirachico Moss AQUATIC CENTRE MANAGER Work Phone: [facility] Start: 01-03-2024 End: 01-08-2024 Evaluation and management of inpatient [facility] Facility:[facility] Start: 12-28-2023 End: 12-28-2023 ambulatory LISBETH ALFORD Facility:[facility] Start: 12-28-2023 End: 12-28-2023 Admission to establishment [place] [id number] Work Phone: Pre Anesthesia Start: 12-28-2023 End: 12-28-2023 Anesthesia consultation [place] [id number] Work Phone: Pre Anesthesia Comment on above: Pre-op evaluation (P rimary Dx); Seizures (HCC); Iron deficiency anemia secondary to inadequate dietary iron intake; Anxiety and depression; Inflammation of colonic mucosa; Failure to thrive in adult Start: 12-28-2023 End: 12-28-2023 Preprocedural examination done [place] [id number] Work Phone: [facility] Work Phone: Start: 12-28-2023 End: 12-28-2023 ambulatory KIMBERLYR [place]eth[place] [facility] Facility:[facility] Comment on above: Perforated appendix (Primary Dx) Start: 12-28-2023 Encounter for other preprocedural examination [facility] Start: 12-27-2023 End: 12-28-2023 Telephone encounter Tessa Spring MD Work Phone: Colorectal Surgery Comment on above: Patient Question; Re turning Patient's Call; Senior Counsel Commercial - Other Start: 12-18-2023 End: 12-18-2023 Patient encounter procedure Tessa Spring MD Work Phone: General Surgery Comment on above: Right lower quadrant abdominal abscess (HCC) (Primary Dx); Perforated appendix; Adult failure to thrive Perforated appendix (Primary Dx) Excessive physiologi c tremor (Primary Dx); Focal epilepsy (HCC); Abnormal thyroid blood test; Essential tremor; Hypothyroidism, unspecified type Start: 12-04-2023 End: 12-04-2023 ambulatory Amish Xavier APRN.AQUATIC CENTRE MANAGER Work Phone: Pulmonary Medicine Start: 11-08-2023 Telephone encounter Rossana Brooke PA-C Work Phone: Gastroenterology [place] Comment on above: Appointment Start: 10-24-2023 ambulatory [...] End: 10-11-2023 Office outpatient new 60 minutes Kailyn Coleman MD Work Phone: Gastroenterology Comment on above: Inflammatory bowel d isease (Primary Dx); Perforated appendix; Severe protein-calorie malnutrition (HCC) Start: 10-10-2023 ambulatory Amish Xavier GREEN END MAN.AQUATIC CENTRE MANAGER Work Phone: Pulmonary Medicine Start: 10-09-2023 ambulatory Marisa Monaco Pulmonar y Medicine Start: 10-03-2023 End: 10-03-2023 Patient encounter procedure Jayla Fung MD Work Phone: General Surgery Comment on above: Encounter for fittin g and adjustment of non-vascular catheter (Primary Dx) Start: 10-02-2023 ambulatory Marisa Monaco Pulmonar y Medicine Start: 09-27-2023 Telephone encounter Mary Granados bee Work Phone: Internal Medicine Start: 09-20-2023 ambulatory Merlyn lockett GREEN END MAN.AQUATIC CENTRE MANAGER Work Phone: Pulmonary Medicine Start: 09-08-2023 Telephone [...] Start: 08-01-2023 End: 08-01-2023 ambulatory Ashly Lange GREEN END MAN.AQUATIC CENTRE MANAGER Work Phone: Neurology Comment on above: Focal epilepsy (HCC) Start: 08-01-2023 End: 08-01-2023 Telemedicine consultation with patient Ashly Lange APRN.AQUATIC CENTRE MANAGER Work Phone: Neurology Start: 07-31-2023 Telephone encounter Christie silva MD Work Phone: Neurology Comment on above: Seizures Start: 05-08-2023 Refill Christie Hylton MD Work Phone: Neurology Comment on above: Refill Request Start: 01-25-2023 End: 01-25-2023 ambulatory [facility] Work Phone: Start: 01-25-2023 End: 01-25-2023 Patient encounter procedure [facility] Work Phone: Start: 01-18-2023 Telephone encounter Christie silva MD Work Phone: Neurology Comment on above: Other (Lab orders fa xed) Start: 01-18-2023 End: 01-18-2023 ambulatory [facility] Work Phone: Start: 01-18-2023 End: 01-18-2023 Patient encounter procedure [facility] Work Phone: Start: 10-28-2022 End: 11-01-2022 ambulatory UNKNOWN PROVIDER Facility:[facility] Start: 10-28-2022 End: 10-28-2022 Patient encounter procedure Sheila Walters DMD Work Phone: [facility] Comment on above: Arrived Start: 09-23-2022 End: 09-23-2022 ambulatory UNKNOWN PROVIDER Facility:[facility] Start: 07-21-2022 End: 07-21-2022 ambulatory Amish Cole AQUATIC CENTRE MANAGER Work Phone: Neurology Comment on above: Focal epilepsy (HCC) Start: 07-21-2022 End: 07-21-2022 Telemedicine consultation with patient Amish Cole APRN.AQUATIC CENTRE MANAGER Work Phone: [facility] Start: 07-20-2022 Telephone encounter Christie sivla MD Work Phone: Neurology Comment on above: Seizures Start: 10-11-2021 Telephone encounter Christie silva MD Work Phone: Neurology Comment on above: Outside Lab Results Start: 10-11-2021 End: 10-11-2021 Patient encounter procedure [facility] Start: 09-16-2021 Telephone encounter Christie silva MD Work Phone: Neurology Comment on above: Outside Labs Results ([facility]) Start: 09-15-2021 Telephone encounter Christie silva MD Work Phone: Neurology Comment on above: Seizures Start: 07-05-2021 End: 07-05-2021 ambulatory Christie Hylton MD Work Phone: Neurology Comment on above: Abnormal CBC (Primar y Dx); 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); Encounter for monitoring long-term anticonvulsant therapy Start: 07-05-2021 End: 07-05-2021 Telemedicine consultation with patient Christie Hylton MD Work Phone: [facility] Start: 07-02-2021 End: 07-02-2021 Patient encounter procedure [facility] Procedures Date Procedure Procedure Detail Performing Clinician Start: 12-17-2024 Urine microscopy: re d cells Zebulun Beam FABRICATION OPERATOR-C Work Phone: Start: 12-17-2024 Urnls dip stick/tabl et reagent auto microscopy Zebulun Beam FABRICATION OPERATOR-C Work Phone: Start: 12-17-2024 Blood count smear mc rscp w/mnl difrntl wbc count Zebulun Beam FABRICATION OPERATOR-C Work Phone: Start: 12-17-2024 Estimated creatinine clearance Zebulun Beam FABRICATION OPERATOR-C Work Phone: Start: 12-17-2024 Mean corpuscular hemoglobin concentration determination Zebulun Beam FABRICATION OPERATOR-C Work Phone: Start: 12-17-2024 Nucleated red blood cell count procedure Zebulun Beam FABRICATION OPERATOR-C Work Phone: Start: 12-17-2024 Platelet mean volume determination Zebulun Beam FABRICATION OPERATOR-C Work Phone: Start: 12-17-2024 Triacylglycerol lipa se measurement Zebulun Beam FABRICATION OPERATOR-C Work Phone: Start: 12-17-2024 Ct abdomen & pelvis w/contrast material Zebulun Beam FABRICATION OPERATOR-C Work Phone: Start: 12-06-2024 Basic metabolic pane l calcium total Jimmie Poole MD Work Phone: Start: 12-02-2024 Blood count complete auto&auto difrntl wbc Jimmie Poole MD Work Phone: Start: 11-29-2024 Blood count complete auto&auto difrntl wbc Jimmie Poole MD Work Phone: Start: 11-25-2024 Urine microscopy: re d cells Zebulun Beam FABRICATION OPERATOR-C Work Phone: Start: 11-25-2024 Urnls dip stick/tabl et reagent auto microscopy Zebulun Beam FABRICATION OPERATOR-C Work Phone: Start: 11-25-2024 Blood count smear mc rscp w/mnl difrntl wbc count Zebulun Beam FABRICATION OPERATOR-C Work Phone: Start: 11-25-2024 Estimated creatinine clearance Zebulun Beam FABRICATION OPERATOR-C Work Phone: Start: 11-25-2024 Mean corpuscular hemoglobin concentration determination Zebulun Beam FABRICATION OPERATOR-C Work Phone: Start: 11-25-2024 Nucleated red blood cell count procedure Zebulun Beam FABRICATION OPERATOR-C Work Phone: Start: 11-25-2024 Platelet mean volume determination Zebulun Beam FABRICATION OPERATOR-C Work Phone: Start: 11-25-2024 Triacylglycerol lipa se measurement Zebulun Beam FABRICATION OPERATOR-C Work Phone: Start: 11-21-2024 Lipid 1996 panel - S massiel or Plasma Tessa Spring MD Work Phone: Start: 11-20-2024 CT angiography of ch est with contrast Zebulun Beam FABRICATION OPERATOR-C Work Phone: Start: 11-20-2024 Calculation of international normalized ratio Zebulun Beam FABRICATION OPERATOR-C Work Phone: Start: 11-20-2024 Plain chest X-ray Zebul un Beam FABRICATION OPERATOR-C Work Phone: Start: 11-20-2024 Blood count smear mc rscp w/mnl difrntl wbc count Zebulun Beam FABRICATION OPERATOR-C Work Phone: Start: 11-20-2024 Estimated creatinine clearance Zebulun Beam FABRICATION OPERATOR-C Work Phone: Start: 11-20-2024 Mean corpuscular hemoglobin concentration determination Zebulun Beam FABRICATION OPERATOR-C Work Phone: Start: 11-20-2024 Nucleated red blood cell count procedure Zebulun Beam FABRICATION OPERATOR-C Work Phone: Start: 11-20-2024 Platelet mean volume determination Zebulun Beam FABRICATION OPERATOR-C Work Phone: Start: 11-18-2024 Blood count complete auto&auto difrntl wbc Jimmie Zulema ANDRES Work Phone: Start: 11-08-2024 Blood count smear mc rscp w/mnl difrntl wbc count Zebulun Beam FABRICATION OPERATOR-C Work Phone: Start: 11-08-2024 Calculation of international normalized ratio Zebulun Beam FABRICATION OPERATOR-C Work Phone: Start: 11-08-2024 Estimated creatinine clearance Zebulun Beam FABRICATION OPERATOR-C Work Phone: Start: 11-08-2024 Mean corpuscular hemoglobin concentration determination Zebulun Beam FABRICATION OPERATOR-C Work Phone: Start: 11-08-2024 Nucleated red blood cell count procedure Zebulun Beam FABRICATION OPERATOR-C Work Phone: Start: 11-08-2024 Platelet mean volume determination Zebulun Beam FABRICATION OPERATOR-C Work Phone: Start: 11-07-2024 Assay of lactate Zebulu n Beam FABRICATION OPERATOR-C Work Phone: Start: 11-07-2024 End: 11-07-2024 Iadna-dna/rna gi pthgn multiplex probe tq 6-11 Zebulun Beam FABRICATION OPERATOR-C Work Phone: Start: 11-07-2024 MRI of abdomen with contrast Zebulun Beam FABRICATION OPERATOR-C Work Phone: Start: 11-07-2024 Clostridium difficil e detection Zebulun Beam FABRICATION OPERATOR-C Work Phone: Start: 11-07-2024 Nucleic acid assay Zebu reji Beam FABRICATION OPERATOR-C Work Phone: Start: 11-07-2024 Urine microscopy: re d cells Zebulun Beam FABRICATION OPERATOR-C Work Phone: Start: 11-07-2024 Estimated creatinine clearance Zebulun Beam FABRICATION OPERATOR-C Work Phone: Start: 11-07-2024 Triacylglycerol lipa se measurement Zebulun Beam FABRICATION OPERATOR-C Work Phone: Start: 11-07-2024 Computed tomography of abdomen and pelvis with intravenous contrast Zebulun Beam FABRICATION OPERATOR-C Work Phone: Start: 11-05-2024 Blood count complete auto&auto difrntl wbc Jimmie Zulema ANDRES Work Phone: Start: 10-23-2024 Blood count smear mc rscp w/mnl difrntl wbc count Zebulun Beam FABRICATION OPERATOR-C Work Phone: Start: 10-23-2024 Mean corpuscular hemoglobin concentration determination Zebulun Beam FABRICATION OPERATOR-C Work Phone: Start: 10-23-2024 Nucleated red blood cell count procedure Zebulun Beam FABRICATION OPERATOR-C Work Phone: Start: 10-23-2024 Platelet mean volume determination Zebulun Beam FABRICATION OPERATOR-C Work Phone: Start: 10-23-2024 Triacylglycerol lipa se measurement Zebulun Beam FABRICATION OPERATOR-C Work Phone: Start: 09-13-2024 Computed tomography of abdomen and pelvis with contrast Zebulun Beam FABRICATION OPERATOR-C Work Phone: Start: 09-12-2024 Blood count smear mc rscp w/mnl difrntl wbc count Zebulun Beam FABRICATION OPERATOR-C Work Phone: Start: 09-12-2024 Estimated creatinine clearance Zebulun Beam FABRICATION OPERATOR-C Work Phone: Start: 09-12-2024 Mean corpuscular hemoglobin concentration determination Zebulun Beam FABRICATION OPERATOR-C Work Phone: Start: 09-12-2024 Nucleated red blood cell count procedure Zebulun Beam FABRICATION OPERATOR-C Work Phone: Start: 09-12-2024 Platelet mean volume determination Zebulun Beam FABRICATION OPERATOR-C Work Phone: Start: 08-28-2024 Antibody screen SAMER N AFFAGUSTÍN Comment on above: Order Comment: Speci men Type: BLOOD SPECIMENOrdering Facility: [facility] Address: [address] [place] [address] Performed By: #### T SCR ####[facility] BLOOD BANKCLIA [id number] [address] Start: 08-14-2024 Antibody screen JIMMIE GOLDEN Comment on above: Order Comment: Speci men Type: BLOOD SPECIMENOrdering Facility: [facility] Address: [address] [place] [address] Performed By: #### T [id number] ####[facility] BLOOD BANKCLIA [id number] [address] Start: 07-30-2024 Gen seq analys yousif org/hemtolmphoid joseph 51/> gen Jimmie Poole MD Work Phone: Start: 07-11-2024 Ct abdomen & pelvis w/contrast material Tessa Spring MD Work Phone: Start: 07-11-2024 Urnls dip stick/tabl et reagent auto microscopy Zebulun Beam FABRICATION OPERATOR-C Work Phone: Start: 07-11-2024 Estimated creatinine clearance Zebulun Beam FABRICATION OPERATOR-C Work Phone: Start: 12-28-2023 Antibody screen TESSA AIKEN Comment on above: Order Comment: Speci men Type: BLOOD SPECIMEN [facility]ing [facility] Address: [address] [place] [address] Performed By: #### T [id number] #### [facility] CLIA [id number] [address] [place] [address] [facility] 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 Plan of Treatment Date Care Activity Detail Author Start: 08-16-2032 Tetanus vaccination Tetanus (Td or Tdap) Booster [facility] Start: 08-16-2032 Urine microalbumin profile DTaP,Tdap,Td Vaccine (2 - Td or Tdap) [facility] Start: 11-21-2029 Lipid panel Lipid Screening [facility] Start: 12-07-2027 Diabetes Screening Diabetes Screening [facility] Start: 11-30-2027 Diabetes Screening Diabetes Screening [facility] Start: 11-23-2027 Diabetes Screening Diabetes Screening [facility] Start: 11-22-2027 Diabetes Screening Diabetes Screening [facility] Start: 11-19-2027 Diabetes Screening Diabetes Screening [facility] Start: 11-06-2027 Diabetes Screening Diabetes Screening [facility] Start: 09-03-2027 Diabetes Screening Diabetes Screening [facility] Start: 08-21-2027 Diabetes Screening Diabetes Screening [facility] Start: 07-20-2027 Diabetes Screening Diabetes Screening [facility] Start: 06-18-2027 Diabetes Screening Diabetes Screening [facility] Start: 05-28-2027 Diabetes Screening Diabetes Screening [facility] Start: 05-06-2027 Diabetes Screening Diabetes Screening [facility] Start: 04-16-2027 Diabetes Screening Diabetes Screening [facility] Start: 03-22-2027 Diabetes Screening Diabetes Screening [facility] Start: 02-14-2027 Diabetes Screening Diabetes Screening [facility] Start: 02-08-2027 HPV TESTING HPV TESTING [facility] Start: 02-08-2027 PAP TESTING PAP TESTING [facility] Start: 02-08-2027 Screening for malignant neoplasm of cervix [facility] Start: 01-07-2027 Diabetes Screening Diabetes Screening [facility] Start: 12-18-2026 Diabetes Screening Diabetes Screening [facility] Start: 09-25-2026 Diabetes Screening Diabetes Screening [facility] Start: 09-19-2026 Diabetes Screening Diabetes Screening [facility] Start: 09-18-2026 Diabetes Screening Diabetes Screening [facility] Start: 05-19-2025 End: 05-19-2025 Patient encounter procedure Cat Scan Comment on above: yearly Chest CT yearly C/M/N Start: 02-12-2025 End: 02-12-2025 ambulatory 02/12/2025 4:00 PM [facility] Hematology/Oncology [address] [place] [address] Wstr, Lab/Port [facility] [address] [place] [address] DC/CADD* Hematology/Oncology Comment on above: DC/CADD* Start: 02-10-2025 End: 02-10-2025 ambulatory 02/10/2025 1:30 PM EST [facility] Hematology/Oncology [address] [place] [address] Q2WK OXALIPLATON(PORT)LAB&OV 02/07* [place] Hematology/Oncology Comment on above: Q2WK OXALIPLATON(PORT)LAB&OV 02/07* [place] Start: 02-07-2025 End: 02-07-2025 ambulatory Hematology/Oncology Comment on above: (SO)CBC/CMP(S)/MG(S)(PORT)/OV TODAY* OV(PORT)LAB EARLY/CH EMO 02/10* [place] Start: 01-29-2025 End: 01-29-2025 ambulatory 01/29/2025 4:00 PM EST [facility]fusion [facility] Hematology/Oncology [address] [place] [address] Wstr, Lab/Port [facility] [address] [place] [address] DC/CADD* Hematology/Oncology Comment on above: DC/CADD* Start: 01-27-2025 End: 01-27-2025 ambulatory Hematology/Oncology Comment on above: Q2WK FOLFOX(PORT)LAB&OV 01/24* [place] Q2WK OXALIPLATIN(POR T)LAB&OV 01/24* [place] Start: 01-24-2025 End: 01-24-2025 ambulatory Hematology/Oncology Comment on above: (SO)CBC/CMP(S)/MG(S)(PORT)/OV TODAY* OV(PORT)CHEMO 01/27* [place] OV(PORT)CT 01/15/VERONICA MO 01/27* [place] OV(PORT)LAB EARLY/CT 01/15/CHEMO 01/27* [place] Start: 01-15-2025 End: 01-15-2025 ambulatory 01/15/2025 4:00 PM EDT Infusion Center Hematology/Oncology [address] [place] [address] Wstr, Lab/[place] [facility] [address] [place] [address] DC/CADD* Hematology/Oncology Comment on above: DC/CADD* Start: 01-15-2025 End: 01-15-2025 Patient encounter procedure Cat Scan Comment on above: Malignant neoplasm of ascending colon (H CC) [C18.2] Start: 01-13-2025 End: 01-13-2025 ambulatory Hematology/Oncology Comment on above: Q2WK FOLFOX(PORT)LAB&OV 01/10* [place] poss straightback/te sent 11/27/Q2WK FOLFOX(PORT)LAB&OV 01/10* [place] Q2WK OXALIPLATIN(POR T)LAB&OV 01/10* [place] Start: 01-10-2025 End: 01-10-2025 ambulatory Hematology/Oncology Comment on above: (SO)CBC/CMP(S)/MG(S)(PORT)/OV TODAY* OV(PORT)CHEMO 01/13* [place] Start: 01-09-2025 End: 01-09-2025 ambulatory 01/09/2025 9:30 AM EDT [facility] [address] [place] [id number] Edwardo Valencia APRN.AQUATIC CENTRE MANAGER [address] [place] [id number] [place] [id number] seen by Kristi Keen [facility] Comment on above: [place] [id number] seen by Kristi Keen Start: 01-01-2025 End: 01-01-2025 ambulatory 01/01/2025 4:00 PM EDT Infusion Center Hematology/Oncology [address] [place] [address] Wstr, Lab/Port [facility] [address] [place], [place] [id number] DC/CADD* Hematology/Oncology Comment on above: DC/CADD* Start: 12-30-2024 End: 12-30-2024 ambulatory Hematology/Oncology Comment on above: Q2WK FOLFOX(PORT)LAB&OV 12/27* [place] Q2WK OXALIPLATIN(POR T)LAB&OV 12/27* [place] Start: 12-27-2024 End: 12-27-2024 ambulatory Hematology/Oncology Comment on above: (SO)CBC/CMP(S)/MG(S)(PORT)/OV TODAY* OV(PORT)CHEMO 12/30* [place] Start: 12-20-2024 End: 12-20-2024 ambulatory 12/20/2024 4:00 PM EDT Infusion Center Hematology/Oncology [address] [place] [address] Wstr, Lab/[place] [facility] [address] [place] [address] DC/CADD* Hematology/Oncology Comment on above: DC/CADD* Start: 12-18-2024 End: 12-18-2024 ambulatory Hematology/Oncology Comment on above: Q2WK FOLFOX(PORT)LAB&OV 12/17* DC/CADD* Start: 12-17-2024 End: 12-17-2024 Patient encounter procedure 12/17/2024 10:00 AM EDT [facility] [address] [place] [address] [address], [address] [place] [address] CONSULT Nutrition Therapy Comment on above: CONSULT Start: 12-17-2024 End: 12-17-2024 ambulatory Hematology/Oncology Comment on above: CBC/CMP/MG/QMO CEA(PORT)OV TODAY* CEA MO NTHLY OV(PORT)CHEMO 12/18* [place] Start: 12-16-2024 End: 12-16-2024 ambulatory Hematology/Oncology Comment on above: Q2WK FOLFOX(PORT)LAB&OV 12/13* [place] Q2WK OXALIPLATIN(POR T)LAB&OV 12/13* [place] Start: 12-13-2024 End: 12-13-2024 ambulatory Hematology/Oncology Comment on above: (SO)CBC/CMP(S)/MG(S)(PORT)/OV TODAY* OV(PORT)CHEMO 12/16* [place]LE[place] Start: 12-06-2024 End: 12-06-2024 ambulatory Hematology/Oncology Comment on above: DC/CADD* Pall med Start: 12-04-2024 End: 12-04-2024 ambulatory Hematology/Oncology Comment on above: Q2WK FOLFOX(PORT)LAB&OV 12/03* DC/CADD* Start: 12-03-2024 End: 12-03-2024 ambulatory Hematology/Oncology Comment on above: CBC/CMP/MG/QMO CEA(PORT)OV TODAY* CEA MO NTHLY OV(PORT)CHEMO 12/04* [facility] Start: 12-02-2024 End: 12-02-2024 ambulatory Hematology/Oncology Comment on above: Q2WK FOLFOX(PORT)LAB&OV 11/29* [place] Q2WK OXALIPLATIN ONL Y (PORT)LAB&OV 11/29* [place] Start: 11-29-2024 End: 11-29-2024 ambulatory Hematology/Oncology Comment on above: DC/CADD* (SO)CBC/CMP(S)/MG(S) (PORT)/OV TODAY* OV(PORT)CHEMO 12/02* Letha BARRIENTOS Start: 11-27-2024 End: 11-27-2024 ambulatory 11/27/2024 10:30 AM EDT Infusion Center Hematology/Oncology [address] [place] [address] Q2WK FOLFOX(PORT)LAB&OV 11/26* Hematology/Oncology Comment on above: Q2WK FOLFOX(PORT)LAB&OV 11/26* Start: 11-26-2024 End: 11-26-2024 ambulatory Hematology/Oncology Comment on above: CBC/CMP/MG(PORT)OV TODAY* CEA MONTHLY MON HOLIDAY Start: 11-25-2024 Consultation [facility] Start: 11-25-2024 End: 11-25-2024 [facility] Start: 11-25-2024 Influenza vaccination [facility] Start: 11-22-2024 End: 11-22-2024 ambulatory 11/22/2024 4:00 PM EDT Infusion Center Hematology/Oncology [address] [place] [address] Wstr, Lab/[facility] [address] [place] [address] DC/CADD* Hematology/Oncology Comment on above: DC/CADD* Start: 11-21-2024 End: 11-21-2024 Admission to same day surgery center 11/21/2024 4:15 PM EDT [facility] [address] [place] [address] Tessa Spring MD [address] [place] [address] review 11/07 review MRI/CT General Surgery Comment on above: review 11/07 review MRI/CT Start: 11-21-2024 End: 11-21-2024 ambulatory Hematology/Oncology Comment on above: DC/CADD* Pall med Start: 11-21-2024 End: 11-21-2024 L hrt cath w/njx l ventriculography img s&i LEFT HEART CATH INTRAPROCEDURAL INJECT W/ LEFT VENTRICULOGRAPHY IMAGE SUPERVISION/INTERPRETAT ION ST elevation myocardial infarction (STEMI), unspecified artery (HCC) 11/21/2024 2:13 AM EDT [facility] SEAM CHECKER Start: 11-21-2024 [facility] Start: 11-21-2024 Catheterization of left heart [facility] Start: 11-20-2024 Referral to parks recreation coordinator [facility] Start: 11-20-2024 [facility] Start: 11-20-2024 Catheterization of left heart [facility] Start: 11-20-2024 Chemotherapy care management [facility] Start: 11-20-2024 End: 11-20-2024 ambulatory 11/20/2024 9:30 AM EDT Infusion Center Hematology/Oncology [address] [place] [address] Q2WK FOLFOX(PORT)LAB&OV 11/19* Hematology/Oncology Comment on above: Q2WK FOLFOX(PORT)LAB&OV 11/19* Start: 11-19-2024 End: 11-19-2024 ambulatory Hematology/Oncology Comment on above: CBC/CMP/MG(PORT)OV TODAY* CEA MONTHLY OV(PORT)CHEMO 11/20* ABRAMOVICH Q2WK FOLFOX(PORT)LAB &OV 11/18* [place] Start: 11-18-2024 End: 11-18-2024 ambulatory Hematology/Oncology Comment on above: (SO)CBC/CMP(S)/MG(S)(PORT)/OV TODAY* OV(PORT)CHEMO 11/19* Z[place]LE[place] Start: 11-14-2024 End: 11-14-2024 ambulatory 11/14/2024 4:00 PM EDT Infusion Center Hematology/Oncology [address] [place] [address] Wstr, Lab/Port [facility] [address] [place] [address] DC/CADD* Hematology/Oncology Comment on above: DC/CADD* Start: 11-12-2024 End: 11-12-2024 ambulatory 11/12/2024 8:30 AM EDT Infusion Center Hematology/Oncology [address] [place] [address] Q2WK FOLFOX(PORT)LAB&OV 11/11* Hematology/Oncology Comment on above: Q2WK FOLFOX(PORT)LAB&OV 11/11* Start: 11-11-2024 End: 11-11-2024 Admission to same day surgery center 11/11/2024 10:30 AM EDT - 11/11/2024 12:00 PM EDT Surgery [facility] [address] [place] [address] [place], Radiology PROVIDER TO SCHEDULE RAD AT [place] INSERTION PORT VENOUS ACCESS ADULT [facility] Comment on above: INSERTION PORT VENOUS ACCESS ADULT Start: 11-11-2024 End: 11-11-2024 Insj tunneled ctr vad w/subq port age 4 yr/> INSERTION PORT VENOUS ACCESS ADULT Adenocarcinoma of cecum (HCC) 11/11/2024 10:30 AM EDT [facility] Start: 11-11-2024 Subsequent hospital visit by physician 11/11/2024 10:30 AM EDT Hospital Encounter [facility] [address] [place] [address] [place] [address] [facility] , [address] [address] Adenocarcinoma of cecum (HCC) [C18.0] [facility] Comment on above: Adenocarcinoma of cecum (HCC) [C18.0] Start: 11-11-2024 End: 11-11-2024 ambulatory Hematology/Oncology Comment on above: CBC/CMP/MG(PORT)OV TODAY* CEA MONTHLY OV(PORT)LAB EARLY/CH EMO 11/12* CHRISTIEROSIOSELENA Start: 11-09-2024 Complete blood count [facility] Start: 11-08-2024 Patient discharge [facility] Start: 11-08-2024 End: 11-08-2024 ambulatory Hematology/Oncology Comment on above: DC/CADD* HYDRATION* Start: 11-07-2024 Application of intermittent pneumatic compression device [facility] Start: 11-07-2024 Chemotherapy care management [facility] Start: 11-07-2024 Following clinical pathway protocol [facility] Start: 11-07-2024 Venous catheter care management [facility] Start: 11-07-2024 Assessment of risk of venous thromboembolism [facility] Start: 11-07-2024 Enteric precautions [facility] Start: 11-07-2024 Inhalation therapy procedure [facility] Start: 11-07-2024 Insertion of catheter into peripheral vein [facility] Start: 11-07-2024 Providing care according to standard [facility] Start: 11-07-2024 Provision of activity privileges [facility] Start: 11-07-2024 [facility] Start: 11-07-2024 MRI of abdomen with contrast MRI Abd WITH and W/O Contrast [facility] Start: 11-07-2024 Verification routine [facility] Start: 11-07-2024 Admission procedure [facility] Start: 11-07-2024 Hospital admission, emergency, from emergency room, medical nature [facility] Start: 11-07-2024 Chemotherapy care management [facility] Start: 11-07-2024 Consultation [facility] Start: 11-07-2024 Patient referral to dietitian [facility] Start: 11-06-2024 End: 11-06-2024 ambulatory 11/06/2024 9:30 AM EDT Infusion Center Hematology/Oncology [address] [place] [address] START Q2WK FOLFOX(PORT)LAB&OV 11/06* Hematology/Oncology Comment on above: START Q2WK FOLFOX(PORT)LAB&OV 11/06* Start: 11-05-2024 End: 11-05-2024 ambulatory Hematology/Oncology Comment on above: CBC/CMP/QMO CEA(PORT)OV TODAY* CEA MONTH LY OV(PORT)CHEMO 11/06* [facility] Start: 10-31-2024 End: 10-31-2024 ambulatory 10/31/2024 4:00 PM EDT [facility] Hematology/Oncology [address] [place] [address] Wstr, Lab/Port [facility] [address] [place] [address] DC/CADD* Hematology/Oncology Comment on above: DC/CADD* Start: 10-29-2024 End: 10-29-2024 ambulatory 10/29/2024 9:00 AM EDT Infusion Center Hematology/Oncology [address] [place] [address] Q2WK FOLFOX(PORT)LAB&OV 10/28* Hematology/Oncology Comment on above: Q2WK FOLFOX(PORT)LAB&OV 10/28* Start: 10-28-2024 End: 10-28-2024 ambulatory Hematology/Oncology Comment on above: CBC/CMP/MG(PORT)OV TODAY* CEA MONTHLY OV(PORT)LAB EARLY/CH EMO 10/29* ZULEMA Start: 10-24-2024 End: 10-24-2024 Admission to same day surgery center 10/24/2024 11:30 AM EDT [facility] General Surgery [address] [place], [place] [address] Tessa Spring MD [address] [place], [place] [id number] f/u General Surgery Comment on above: f/u Start: 10-23-2024 [facility] Start: 10-21-2024 End: 10-21-2024 Admission to same day surgery center 10/21/2024 11:00 AM EDT - 10/21/2024 12:00 PM EDT Surgery [place] [address] 046 Romelia Gary MD [address] [place] [address] INSERTION PORT VENOUS ACCESS ADULT SP INTERVENTIONAL RADIOLOGY Comment on above: INSERTION PORT VENOUS ACCESS ADULT Start: 10-21-2024 End: 10-21-2024 Insj tunneled ctr vad w/subq port age 4 yr/> INSERTION PORT VENOUS ACCESS ADULT Adenocarcinoma of cecum (HCC) 10/21/2024 11:00 AM EDT SP IR Start: 10-21-2024 Subsequent hospital visit by physician 10/21/2024 11:00 AM EDT Hospital Encounter SP [facility]VENT[facility] [place] [place] [address] Romelia Gary MD [address] [place] [address] Adenocarcinoma of cecum (HCC) [C18.0] SP INTERVENTIONAL RADIOLOGY Comment on above: Adenocarcinoma of cecum (HCC) [C18.0] Start: 10-17-2024 End: 10-17-2024 ambulatory 10/17/2024 4:00 PM EDT Infusion Center Hematology/Oncology [address] [place], [place] [id number] Wstr, Lab/[place] [facility] [address] [place], [place] [id number] DC/CADD* Hematology/Oncology Comment on above: DC/CADD* Start: 10-15-2024 End: 10-15-2024 ambulatory Hematology/Oncology Comment on above: STRAIGHTBACK CBC/CMP/START Q2WK FOLFOX(P ORT) CBC/CMP(PORT)START Q 2WK FOLFOX* Start: 10-10-2024 End: 10-10-2024 ambulatory 10/10/2024 2:00 PM EDT Visit (SP) Office Hematology/Oncology [address] [place], [place] [id number] Jimmie Poole MD [address] [place] [address] OV-PT REQUESTED TO SEE PROV BEFORE STARTING TREATMENT Hematology/Oncology Comment on above: OV-PT REQUESTED TO SEE PROV BEFORE START ING TREATMENT Start: 10-10-2024 End: 10-10-2024 Admission to same day surgery center 10/10/2024 12:00 PM EDT - 10/10/2024 1:30 PM EDT Surgery [facility] Radiology [address] [place] [address] [place] [address] [address] INSERTION PORT VENOUS ACCESS ADULT [facility] Comment on above: INSERTION PORT VENOUS ACCESS ADULT Start: 10-10-2024 End: 10-10-2024 Insj tunneled ctr vad w/subq port age 4 yr/> INSERTION PORT VENOUS ACCESS ADULT Adenocarcinoma of cecum (HCC) 10/10/2024 12:00 PM EDT ME IR Start: 10-10-2024 Subsequent hospital visit by physician 10/10/2024 12:00 PM EDT Hospital Encounter [facility] [address] [place] [address] [place] [address] [address] Adenocarcinoma of cecum (HCC) [C18.0] [facility] Comment on above: Adenocarcinoma of cecum (HCC) [C18.0] Start: 10-02-2024 End: 10-02-2024 ambulatory Hematology/Oncology Comment on above: CHEMO ED CHEMO ED- FOLFOX* Start: 10-01-2024 End: 12-31-2024 CBC panel - Blood by Automated count COMPLETE BLOOD COUNT Lab STAT Adenocarcinoma of cecum (HCC) Expected: 10/01/2024, Expires: 12/31/2024 [facility] Work Phone: Comment on above: Expected: 10/01/2024, Expires: Start: 10-01-2024 End: 12-31-2024 PT panel - Platelet poor plasma by Coagulation assay PROTHROMBIN TIME Lab STAT Adenocarcinoma of cecum (HCC) Expected: 10/01/2024, Expires: 12/31/2024 [facility] Comment on above: Expected: 10/01/2024, Expires: Start: 09-30-2024 End: 09-30-2024 Specialty Pharmacy 09/30/2024 9:15 AM EDT Specialty Pharmacy [facility] [address] [place] [phone] Pharmacist, [facility] [address] [place] [address] [place] [address] Refill - Capecitabine (21DS) - Cycle resume? [...] EDT Specialty Pharmacy [facility] [address] [place] [address] Pharmacist, [facility] [address] [place] [address] [place] [address] Refill - Capecitabine (21DS) - Cycle resume? [...] Visit (SP) Office Hematology/Oncology [address] [place] [address] Jimmie Poole MD [address] [place], [place] [id number] OV* Hematology/Oncology Comment on above: OV* Start: 09-20-2024 End: 09-20-2024 ambulatory 09/20/2024 11:00 AM EDT [facility] [address] [place] [phone] Edwardo Valencia APRN.AQUATIC CENTRE MANAGER [address] [place] [phone] call 09/15 to see if discharged from snf 09/12/24 Mobile Services Comment on above: [phone] call 09/15 to see if discharged fr om snf 09/12/24 Start: 09-16-2024 End: 09-16-2024 Patient encounter procedure 09/16/2024 10:30 AM EDT Office Visit General Surgery [address] [facility] [address] [place] [address] Tessa Spring MD [address] [place] [address] s/p 6/4 ex lap, mass resection General Surgery Comment on above: s/p 6/4 ex lap, mass resection Start: 09-14-2024 Development of care plan [facility] Start: 09-13-2024 Patient discharge [facility] Start: 09-13-2024 Referral to general surgeon [facility] Start: 09-13-2024 Referral to service [facility] Start: 09-13-2024 [facility] Start: 09-11-2024 End: 09-11-2024 Specialty Pharmacy 09/11/2024 8:00 AM EDT Specialty Pharmacy [facility] [address] [place], [place] [address]-b-100 [place] [address] Pharmacist, [facility] [address] [place] [address] [place] [address] Refill - Capecitabine (21DS) - [...] due to surgery Start: 09-10-2024 Seizure precautions [facility] Start: 09-09-2024 End: 09-09-2024 [facility] Start: 09-09-2024 End: 09-09-2024 Patient encounter procedure 09/09/2024 10:30 AM EDT Office Visit General Surgery [address] [facility] [place] [address] Tessa Spring MD [address] [place] [phone] s/p 6/4 ex lap, mass resection General Surgery Comment on above: s/p 6/4 ex lap, mass resection Start: 09-05-2024 Development of care plan [facility] Start: 09-05-2024 Contact precautions [facility] Start: 09-05-2024 Developing a treatment plan [facility] Start: 09-04-2024 Provision of activity privileges [facility] Start: 09-04-2024 End: 09-04-2024 [facility] Start: 09-04-2024 Admission procedure [facility] Start: 09-04-2024 Introduction of urinary catheter [facility] Start: 09-04-2024 Measuring intake and output [facility] Start: 09-04-2024 Patient referral to dietitian [facility] Start: 09-04-2024 Referral for physical therapy [facility] Start: 09-04-2024 Referral to occupational therapist [facility] Start: 09-04-2024 Referral to service [facility] Start: 09-04-2024 Vital signs measurements [facility] Start: 09-04-2024 Verification routine [facility] Start: 08-28-2024 End: 08-28-2024 Admission to same day surgery center 08/28/2024 8:30 AM EDT - 08/28/2024 11:45 AM EDT Surgery [facility] Operating Room [address] [place] [address] Tessa Spring MD [address] [place] [address] EXPLORATORY LAPAROTOMY ADULT [facility] Operating Room Comment on above: EXPLORATORY LAPAROTOMY ADULT Start: 08-28-2024 End: 08-28-2024 Exploratory laparotomy celiotomy w/wo biopsy spx EXPLORATORY LAPAROTOMY ADULT Malignant neoplasm of ascending colon (HCC) 08/28/2024 8:30 AM EDT [facility] Start: 08-28-2024 End: 08-28-2024 OPEN EXC/DSTRJ INTRA-ABDL, RETROPERITONEAL, TUMOR/ORBITREAD OPERATOR 5 CM OR LESS OPEN EXC/DSTRJ INTRA-ABDL, RETROPERITONEAL, TUMOR/ORBITREAD OPERATOR 5 CM OR LESS Malignant neoplasm of ascending colon (HCC) 08/28/2024 8:30 AM EDT [facility] Start: 08-28-2024 End: 08-28-2024 Subsequent hospital visit by physician [facility] Operating Room Comment on above: Malignant neoplasm of ascending colon (H CC) [C18.2] Refill - Capecitabin e (21DS) - Cycle resume? -(confirm copay is ok at each fill (may need to pursue BioPlus if copay is high) Holding due to surgery Start: 08-14-2024 End: 08-14-2024 Anesthesia consultation 08/14/2024 2:00 PM EDT PAT Pre Anesthesia [address] [place] [address] 1, [facility] [place] [address] [place] [address] pre - op: 6/4 ex lap Pre Anesthesia Comment on above: pre - op: 6/4 ex lap Start: 08-14-2024 End: 08-14-2024 Patient encounter procedure 08/14/2024 1:00 PM EDT Appointment Cat Scan [address] [place] [address] CT ABD/PEL W IVCON Cat Scan Comment on above: CT ABD/PEL W IVCON Start: 08-07-2024 End: 08-07-2024 Specialty Pharmacy 08/07/2024 7:45 AM EDT Specialty Pharmacy [facility] [address] [address] Pharmacist, [facility] [address] [facility] [place] [address] Refill - Capecitabine (21DS) - C05/21 -(confirm [...] 9:30 AM EDT Office Visit General Surgery [address] [address] Tessa Spring MD [address] [place] [address] est. discuss plan / next steps General Surgery Comment on above: est. discuss plan / next steps Start: 07-31-2024 End: 07-31-2024 ambulatory 07/31/2024 8:30 AM EDT Visit (SP) Office Hematology/Oncology [address] [place], [place] [address] Jimmie Poole MD [address] [place], [place] [phone] OV/BIOPSY 07/24* Hematology/Oncology Comment on above: OV/BIOPSY 07/24* Start: 07-24-2024 End: 07-24-2024 Admission to same day surgery center 07/24/2024 9:30 AM EDT - 07/24/2024 10:30 AM EDT Surgery [facility] [address] [place] [address] [place] [address] [place] [address] BIOPSY, ABDOMINAL MASS, PERCUTANEOUS NEEDLE [facility] Comment on above: BIOPSY, ABDOMINAL MASS, PERCUTANEOUS NEE DLE Start: 07-24-2024 End: 07-24-2024 Bx abdl/retroperitoneal mass prq needle BIOPSY, ABDOMINAL MASS, PERCUTANEOUS NEEDLE Other intra-abdominal and pelvic swelling, mass and lump 07/24/2024 9:30 AM EDT [facility] IR Start: 07-24-2024 Subsequent hospital visit by physician 07/24/2024 9:30 AM EDT Hospital Encounter [facility] [address] [facility] [place] [address] [place] [address] [place] [address] Other intra-abdominal and pelvic swelling, mass and lump [R19.09] [facility] Comment on above: Other intra-abdominal and pelvic swellin g, mass and lump [R19.09] Start: 07-19-2024 End: 07-19-2024 ambulatory [facility] Laboratory Comment on above: CBC/CMP(S)* 4WK OV/EARLY LABS* Start: 07-18-2024 End: 07-18-2024 Specialty Pharmacy 07/18/2024 8:15 AM EDT Specialty Pharmacy [facility] [address] [place] [address] [place] [phone] Pharmacist, [facility] [address] [place] [address] Refill - Capecitabine (21DS) - C04/30 [...] of cecum (HCC) Expected: 07/17/2024, Expires: 10/16/2024 [facility] Work Phone: Comment on above: Expected: 07/17/2024, Expires: Start: 07-17-2024 End: 10-16-2024 PT panel - Platelet poor plasma by Coagulation assay PROTHROMBIN TIME Lab STAT Other intra-abdominal and pelvic swelling, mass and lump Iron deficiency anemia secondary to inadequate dietary iron intake Seizures (HCC) Severe protein-calorie malnutrition (HCC) Adenocarcinoma of cecum (HCC) Generalized abdominal pain Expected: 07/17/2024, Expires: 10/16/2024 [facility] Comment on above: Expected: 07/17/2024, Expires: Start: 07-17-2024 End: 07-17-2024 ambulatory [facility] Laboratory Comment on above: CBC/CMP(S)* 4WK OV/EARLY LABS* Refill - Capecitabin e (21DS) - C04/30 -(confirm copay is ok at each fill (may need to pursue BioPlus if copay is high) Start: 07-11-2024 End: 07-11-2024 Patient encounter procedure Cat Scan Comment on above: CT ABD/PEL W IVCON Start: 07-11-2024 [facility] Start: 07-11-2024 Chemotherapy care management [facility] Start: 06-26-2024 End: 06-26-2024 Specialty Pharmacy 06/26/2024 8:15 AM EDT Specialty Pharmacy [facility] [address] [place] [id number] [place] [address] Pharmacist, [facility] [address] [place] [address] Refill - Capecitabine (21DS) - C 4/2 (confirm copay is ok at each fill (may need to pursue BioPlus if copay is high) lvm 3/ge. [facility] Comment on above: Refill - Capecitabine (21DS) - C 4/2 (co nfirm copay is ok at each fill (may need to pursue BioPlus if copay is high) lvm 3/31ge. Start: 06-25-2024 End: 06-25-2024 Nutrition therapy 06/25/2024 10:00 AM EDT Education Nutrition Therapy [address] [place] [address] Jag Lenz, RD [address] [place] [address] Weight loss [R63.4] Nutrition Therapy Comment on above: Weight loss [R63.4] Start: 06-20-2024 End: 06-20-2024 Specialty Pharmacy 06/20/2024 8:00 AM EDT Specialty [facility] [place] [address] [place] [address] Pharmacist, [facility] [address] [place] [phone] Refill - Capecitabine (21DS) - C 4/2 (confirm copay is ok at each fill (may need to pursue BioPlus if copay is high) Check qty when billing rx, having dental work- hold off for 1 week, June 26 new start date, [facility] Comment on above: Refill - Capecitabine (21DS) - C 06/26 (co nfirm copay is ok at each fill (may need to pursue BioPlus if copay is high) Check qty when billing rx, having dental work- hold off for 1 week, June 26 new start date, Start: 06-17-2024 End: 06-17-2024 [facility] Laboratory Comment on above: (SO)CMP(S)(SO)CBC(S)* 6WK OV/EARLY LABS* 6WK(SO)CMP(S)(SO)CBC (S)* Start: 06-12-2024 End: 06-12-2024 [facility]ty [facility] Comment on above: Refill [...] copay is high) Start: 05-27-2024 End: 05-27-2024 [facility] Laboratory Comment on above: (SO)CMP(S)(SO)CBC(S)* 3WK(SO)CMP(S)(SO)CBC (S)* Start: 05-25-2024 Medicare Annual Wellness Visit Medicare Annual Wellness Visit [facility] Start: 05-20-2024 End: 05-20-2024 Specialty Pharmacy 05/20/2024 11:00 AM EST [facility] [address] [place] [address] Pharmacist, [facility] [address] [place] [address] [place] [address] Refill - Capecitabine (21DS) - C 3/5 (confirm copay is ok at each fill (may need to pursue BioPlus if copay is high) - ok to send refill once dose reduced 1500 mg/1000 mg received [facility] Comment on above: Refill - Capecitabine (21DS) - C 3/5 (co nfirm copay is ok at each fill (may need to pursue BioPlus if copay is high) - ok to send refill once dose reduced 1500 mg/1000 mg received Start: 05-13-2024 End: 05-13-2024 Patient encounter procedure 05/13/2024 12:00 PM EST Office Visit Pulmonary Medicine [address] [place] [address] Fe Edmond APRN.AQUATIC CENTRE MANAGER [address] [place] [address] 3 MONTH F/U Pulmonary Medicine Comment on above: 3 MONTH F/U Start: 05-06-2024 End: 05-06-2024 ambulatory Hematology/Oncology Comment on above: (SO)CBC/CMP(S)* 3WK OV/EARLY LABS* Start: 05-06-2024 End: 05-06-2024 Specialty Pharmacy 05/06/2024 8:45 AM EST Specialty Pharmacy [facility] [address] [place] [address] Pharmacist, [facility] [address] [place] [address] [place] [address] Refill - Capecitabine (21DS) - C 05/08 (confirm copay is ok at each fill (may need to pursue BioPlus if copay is high) - ok to send refill once dose reduced 1500 mg/1000 mg received lvm 05/02 [facility] Comment on above: Refill - Capecitabine (21DS) - C 05/08 (c onfirm copay is ok at each fill (may need to pursue BioPlus if copay is high) - ok to send refill once dose reduced 1500 mg/1000 mg received lvm 05/02 Start: 05-03-2024 End: 05-03-2024 Patient encounter procedure 05/03/2024 11:00 AM EST Appointment Cat Scan [address] [place], [place] [phone] 3 MONTH SCAN Cat Scan Comment on above: 3 MONTH SCAN Start: 05-01-2024 End: 05-01-2024 Specialty Pharmacy 05/01/2024 7:45 AM EST Specialty Pharmacy [facility] [address] [place], [place] [address]-[address]-100 [place] [address] Pharmacist, [facility] [address] [place] [address] Refill - Capecitabine (21DS) - confirm cycle [...] Lung nodules Expected: 04/27/2024 (Approximate), Expires: 04/18/2025 [facility] Work Phone: Comment on above: Expected: 04/27/2024 (Approximate), Expi res: 04/18/2025 Start: 04-22-2024 End: 04-22-2024 Admission to same day surgery center 04/22/2024 4:00 PM EST [facility] General Surgery [address] [place] [address] Tessa Spring MD [address] [place] [address] Est: CT f/u RLQ Abd pain, fluid collection/ possible abscess General Surgery Comment on above: Est: CT f/u RLQ Abd pain, fluid collecti on/ possible abscess Start: 04-19-2024 End: 04-19-2024 [facility] Laboratory Comment on above: LABS* OV/EARLY LABS* Start: 04-11-2024 End: 04-11-2024 Patient encounter procedure 04/11/2024 10:30 AM EST Office Visit General Surgery [address] [place] [address] Tessa Spring MD [address] [facility] [place] [address] Est: CT f/u RLQ Abd pain, fluid collection/ possible abscess General Surgery Comment on above: Est: CT f/u RLQ Abd pain, fluid collecti on/ possible abscess Start: 04-10-2024 End: 04-10-2024 Specialty Pharmacy 04/10/2024 7:45 AM EST Specialty Pharmacy [facility] [address] [place] [address]-[address] [place] [address] Pharmacist, [facility] [address] [place] [address] [place] [address] Refill - Capecitabine (21DS) - confirm cycle start (C~04/17 - confirm copay is ok at each fill (may need to pursue BioPlus if copay is high) [facility] Comment on above: Refill - Capecitabine (21DS) - confirm c ycle start (C~04/17 - confirm copay is ok at each fill (may need to pursue BioPlus if copay is high) Start: 04-08-2024 [facility] Start: 03-27-2024 Advance Directive Discussion Advance Directive Discussion [facility] Start: 03-22-2024 End: 03-22-2024 [facility] Laboratory Comment on above: CBC/CMP* 1MO OV/EARLY [...] copay is high) Start: 03-19-2024 End: 03-19-2024 [facility] Laboratory Comment on above: CBC/CMP* 1MO OV/EARLY LABS* Start: 03-15-2024 End: 03-15-2024 Patient encounter procedure Cat Scan Comment on above: CT ABD/PEL W IVCONRight lower quadrant a bdominal pain [R10.31]Specify enteric contrast choice: Start: 03-12-2024 End: 03-12-2024 Nutrition therapy 03/12/2024 10:00 AM EST Education Nutrition Therapy [address] [place] [address] Jag Lenz, RD [address] [place] [address] Malignant neoplasm of ascending colon (HCC) [C18.2] Nutrition Therapy Comment on above: Malignant neoplasm of ascending colon (H CC) [C18.2] Start: 02-23-2024 End: 02-23-2024 Specialty Pharmacy 02/23/2024 8:00 AM EST Specialty Pharmacy [facility] [address] [place] [address] Pharmacist, Specialtygroup 1 [facility] [employer] [place] [address] Refill - Capecitabine (21DS) - [...] ambulatory 02/15/2024 11:00 AM EST Results Only [facility] Draw Station [address] [place] [address] [place] [facility] Draw Station Start: 02-13-2024 End: 02-13-2024 Nutrition therapy 02/13/2024 11:00 AM EST Education Nutrition Therapy [address] [place] [address] Jag Lenz, RD [address] [place] [address] Malignant neoplasm of ascending colon (HCC) [C18.2] Nutrition Therapy Comment on above: Malignant neoplasm of ascending colon (H CC) [C18.2] Start: 02-07-2024 Advance Directive Discussion Advance Directive Discussion [facility] Start: 02-07-2024 Screening for osteoporosis Bone Density Screening [facility] Start: 02-01-2024 End: 02-01-2024 ambulatory 02/01/2024 10:40 AM EST Visit (SP) Office Hematology/Oncology [address] [place] [address] [place] [address] [place] [address] Malignant neoplasm of ascending colon (HCC) [C18.2] Hematology/Oncology Comment on above: Malignant neoplasm of ascending colon (H CC) [C18.2] Start: 01-29-2024 End: 01-29-2024 Patient encounter procedure 01/29/2024 10:00 AM EST Office Visit Pulmonary Medicine [address] [place] [address] Fe Edmond APRN.AQUATIC CENTRE MANAGER [address] [place] [address] Pulmonary Medicine Start: 01-26-2024 End: 01-26-2024 Patient encounter procedure 01/26/2024 8:40 AM EDT Appointment Cat Scan [address] [place] [address] CT chest wo IV con intra-abd and pelvic swelling Cat Scan Comment on above: CT chest wo IV con intra-abd and pelvic swelling Start: 01-25-2024 End: 01-25-2024 Patient encounter procedure 01/25/2024 1:45 PM EDT Office Visit General Surgery [address] [place] [address] Tessa Spring MD [address] [facility] [place] [address] s/p diagnostic lap converted to open ileocecectomy General Surgery Comment on above: s/p diagnostic lap converted to open ile ocecectomy Start: 01-18-2024 End: 01-18-2024 Patient encounter procedure 01/18/2024 10:00 AM EDT Office Visit General Surgery [address] [place] [address] Tessa Spring MD [address] [place] [address] s/p diagnostic lap converted to open ileocecectomy General Surgery Comment on above: s/p diagnostic lap converted to open ile ocecectomy Start: 01-03-2024 End: 01-03-2024 Admission to same day surgery center 01/03/2024 12:15 PM EDT - 01/03/2024 2:45 PM EDT Surgery [facility] Operating Room [id number] [place] [address] Tessa Spring MD [address] [place] [address] LAPAROSCOPY DIAGNOSTIC ABDOMEN, PERITONEUM AND OMENTUM [facility] Operating Room Comment on above: LAPAROSCOPY DIAGNOSTIC [...] physician 01/03/2024 12:15 PM EDT Hospital Encounter [facility] Operating Room [id number] [place] [address] Tessa Spring MD [address] [place] [address] Perforated appendix [K35.32] [facility] Operating Room Comment on above: Perforated appendix [K35.32] Start: 01-03-2024 End: 01-03-2024 Unlisted laparoscopy px intestine xcp rectum LAPAROSCOPIC ENTEROTOMY FOR EXPLORATION OF SMALL BOWEL Perforated appendix 01/03/2024 12:15 PM EDT [facility] Start: 01-03-2024 End: 01-03-2024 Admission to same day surgery center 01/03/2024 9:45 AM EDT - 01/03/2024 12:15 PM EDT Surgery [facility] Operating Room [id number] [place] [address] Tessa Spring MD [address] [place] [address] LAPAROSCOPY DIAGNOSTIC ABDOMEN, PERITONEUM AND OMENTUM [facility] Operating Room Comment on above: LAPAROSCOPY DIAGNOSTIC [...] physician 01/03/2024 9:45 AM EDT Hospital Encounter [facility] Operating Room [address] [place] [address] Tessa Spring MD [address] [place] [address] Perforated appendix [K35.32] [facility] Operating Room Comment on above: Perforated appendix [K35.32] Start: 01-03-2024 End: 01-03-2024 Unlisted laparoscopy px intestine xcp rectum LAPAROSCOPIC ENTEROTOMY FOR EXPLORATION OF SMALL BOWEL Perforated appendix 01/03/2024 9:45 AM EDT [facility] Start: 12-30-2023 DIABETES SCREEN DIABETES SCREEN [facility] Start: 12-30-2023 Diabetes Screening Diabetes Screening [facility] Start: 12-18-2023 End: 03-18-2024 CBC panel - Blood by Automated count COMPLETE BLOOD COUNT Lab Routine Perforated appendix Expected: 12/18/2023, Expires: 03/18/2024 [facility] Work Phone: Comment on above: Expected: 12/18/2023, Expires: Start: 12-18-2023 End: 03-18-2024 Comprehensive metabolic 2000 panel - Serum or Plasma COMPREHENSIVE METABOLIC PANEL Lab Routine Perforated appendix Expected: 12/18/2023, Expires: 03/18/2024 [facility] Comment on above: Expected: 12/18/2023, Expires: Start: 12-18-2023 End: 03-18-2024 Prealbumin [Mass/volume] in Serum or Plasma PREALBUMIN Lab Routine Perforated appendix Expected: 12/18/2023, Expires: 03/18/2024 [facility] Comment on above: Expected: 12/18/2023, Expires: Start: 12-18-2023 End: 12-18-2023 Patient encounter procedure 12/18/2023 8:00 AM EDT Office Visit [facility] [address] [place] [address] Pipe Estevez MD [address] [place] [address] Focal epilepsy [facility] Comment on above: Focal epilepsy Start: 11-26-2023 Covid-19 Vaccine ( season) Covid-19 Vaccine () [facility] Start: 11-26-2023 Covid-19 Vaccine () Covid-19 Vaccine () [facility] Start: 11-26-2023 Influenza vaccination [facility] Start: 11-08-2023 End: 11-08-2023 Patient encounter procedure 11/08/2023 9:40 AM EDT Office Visit [facility]astro[facility] [address] [place] [address] Rossana Brooke PA-C [address] [place] [id number] bowel obstruction non op managed, drain removal [facility] Comment on above: bowel obstruction non op managed, drain removal Start: 10-23-2023 End: 01-22-2024 CBC panel - Blood by Automated count COMPLETE BLOOD COUNT Lab Routine Focal epilepsy (HCC) Expected: 10/23/2023, Expires: 01/22/2024 [facility] Comment on above: Expected: 10/23/2023, Expires: Start: 10-23-2023 End: 01-22-2024 Comprehensive metabolic 2000 panel - Serum or Plasma COMPREHENSIVE METABOLIC PANEL Lab Routine Focal epilepsy (HCC) Expected: 10/23/2023, Expires: 01/22/2024 [facility] Comment on above: Expected: 10/23/2023, Expires: Start: 10-23-2023 End: 01-22-2024 Valproate [Mass/volume] in Serum or Plasma VALPROIC ACID / DEPAKENE Lab Routine Focal epilepsy (HCC) Expected: 10/23/2023, Expires: 01/22/2024 [facility] Work Phone: Comment on above: Expected: 10/23/2023, Expires: Start: 10-23-2023 End: 01-22-2024 Valproate Free [Mass/volume] in Serum or Plasma VALPRO AC/DEPAK FREE Lab Routine Focal epilepsy (HCC) Expected: 10/23/2023, Expires: 01/22/2024 [facility] Comment on above: Expected: 10/23/2023, Expires: Start: 10-23-2023 End: 10-23-2023 Patient encounter procedure 10/23/2023 9:00 AM EDT Office Visit Neurology [address] [place] [address] Christie Hylton MD [address] [facility] [address] [place] [address] F/U; NOT RESPONDING WELL TO MEDS (HAVING TREMORS) Neurology Comment on above: F/U; NOT RESPONDING WELL TO MEDS (HAVING TREMORS) Start: 10-16-2023 End: 10-16-2023 Patient encounter procedure 10/16/2023 1:30 PM EDT Office Visit Colorectal Surgery [address] [address] Michael Younger MD [id number] Nolvia dawson ordered Colorectal Surgery Comment on above: referral dr Nolvia dawson ordered Start: 10-12-2023 End: 10-12-2023 Patient encounter procedure [facility] Comment on above: Inflammatory bowel disease [K52.9] Start: 10-11-2023 End: 01-10-2024 BLOOD TB SCREEN BLOOD TB SCREEN Lab Routine Perforated appendix Expected: 10/11/2023, Expires: 01/10/2024 [facility] Comment on above: Expected: 10/11/2023, Expires: Start: 10-11-2023 End: 01-10-2024 C reactive protein [Mass/volume] in Serum or Plasma C-REACTIVE PROTEIN Lab Routine Intra-abdominal abscess (HCC) Expected: 10/11/2023, Expires: 01/10/2024 [facility] Work Phone: Comment on above: Expected: 10/11/2023, Expires: Start: 10-11-2023 End: 01-10-2024 Cobalamin (Vitamin B12) [Mass/volume] in Serum or Plasma VITAMIN B12 Lab Routine Perforated appendix Expected: 10/11/2023, Expires: 01/10/2024 [facility] Comment on above: Expected: 10/11/2023, Expires: Start: 10-11-2023 End: 01-10-2024 HIV 1+2 Ab [Presence] in Serum or Plasma by Immunoassay HIV 1/2 COMBO WITH REFLEX TO DIFFERENTIATION Lab Routine Intra-abdominal abscess (HCC) Encounter for screening for human immunodeficiency virus (HIV) Expected: 10/11/2023, Expires: 01/10/2024 [facility] Comment on above: Expected: 10/11/2023, Expires: Start: 10-11-2023 End: 01-10-2024 TPMT PHENOTYPE/ENZYME ACTIVITY TPMT PHENOTYPE/ENZYME ACTIVITY Lab Routine Perforated appendix Expected: 10/11/2023, Expires: 01/10/2024 [facility] Comment on above: Expected: 10/11/2023, Expires: Start: 10-11-2023 End: 10-11-2023 Patient encounter procedure Gastroenterology Comment on above: 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 , 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 Abx R psoas abscess Start: 10-03-2023 End: [...] Focal epilepsy (HCC) Expected: 08/01/2023, Expires: 10/31/2023 [facility] Comment on above: Expected: 08/01/2023, Expires: Start: 08-01-2023 End: 10-31-2023 Comprehensive metabolic 2000 panel - Serum or Plasma COMPREHENSIVE METABOLIC PANEL Lab Routine Focal epilepsy (HCC) Expected: 08/01/2023, Expires: 10/31/2023 [facility] Comment on above: Expected: 08/01/2023, Expires: Start: 08-01-2023 End: 10-31-2023 Valproate [Mass/volume] in Serum or Plasma VALPROIC ACID / DEPAKENE Lab Routine Focal epilepsy (HCC) Expected: 08/01/2023, Expires: 10/31/2023 [facility] Comment on above: Expected: 08/01/2023, Expires: Start: 08-01-2023 End: 10-31-2023 Valproate Free [Mass/volume] in Serum or Plasma VALPRO AC/DEPAK FREE Lab Routine Focal epilepsy (HCC) Expected: 08/01/2023, Expires: 10/31/2023 [facility] Work Phone: Comment on above: Expected: 08/01/2023, Expires: Start: 08-01-2023 End: 08-01-2023 ambulatory 08/01/2023 1:00 PM EDT [facility] [address] [place] [address] Ashly Lange, [employer] MANAGER [address] [place] [address] [facility] Comment on above: [facility] Start: 02-08-2023 Screening for malignant neoplasm of cervix Cervical Cancer Screening [facility] Start: 12-25-2022 Influenza vaccination Influenza Vaccine (#1) [facility] Start: 11-25-2022 Covid-19 Vaccine () Covid-19 Vaccine () [facility] Start: 11-25-2022 Influenza vaccination [facility] Start: 07-21-2022 End: 09-20-2022 CBC panel - Blood by Automated count CBC Lab Routine Focal epilepsy (HCC) Expected: 07/21/2022, Expires: 09/20/2022 [facility] Work Phone: Comment on above: Expected: 07/21/2022, Expires: 3 Start: 07-21-2022 End: 09-20-2022 Comprehensive metabolic 2000 panel - Serum or Plasma COMP METABOLIC PANEL Lab Routine Focal epilepsy (HCC) Expected: 07/21/2022, Expires: 09/20/2022 [facility] Work Phone: Comment on above: Expected: 07/21/2022, Expires: 3 Start: 07-21-2022 End: 09-20-2022 Valproate [Mass/volume] in Serum or Plasma VALPROIC A/DEPAKENE Lab Routine Focal epilepsy (HCC) Expected: 07/21/2022, Expires: 09/20/2022 [facility] Work Phone: Comment on above: Expected: 07/21/2022, Expires: 3 Start: 07-21-2022 End: 09-20-2022 Valproate Free [Mass/volume] in Serum or Plasma VALPRO AC/DEPAK FREE Lab Routine Focal epilepsy (HCC) Expected: 07/21/2022, Expires: 09/20/2022 [facility] Work Phone: Comment on above: Expected: 07/21/2022, Expires: 3 Start: 11-25-2021 Influenza vaccination [facility] Start: 09-17-2021 End: 11-17-2021 Valproate [Mass/volume] in Serum or Plasma VALPROIC A/DEPAKENE Lab Routine 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) Expected: 09/17/2021, Expires: 11/17/2021 [facility] Work Phone: Comment on above: Expected: 09/17/2021, Expires: 2 Start: 07-05-2021 End: 09-04-2021 VALPROIC A/DEPAKENE VALPROIC A/DEPAKENE Lab Routine 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) Expected: 07/05/2021, Expires: 09/04/2021 [facility] Work Phone: Comment on above: Expected: 07/05/2021, Expires: Start: 06-30-2021 COVID-19 VACCINE (4 - Booster for Pfizer series) COVID-19 VACCINE (4 - Booster for Pfizer series) [facility] Start: 04-26-2021 COVID-19 VACCINE (4 - Booster for Pfizer series) COVID-19 VACCINE (4 - Booster for Pfizer series) [facility] Start: 2019 RSV Vaccine (1 - 1-dose 60+ series) RSV Vaccine (1 - 1-dose 60+ series) [facility] Start: 2019 RSV Vaccine (1 - Risk 60-74 years 1-dose series) RSV Vaccine (1 - Risk 60-74 years 1-dose series) [facility] Start: 01-04-2017 End: 01-04-2017 Appointment Appointment [facility] [employer] Work Phone: Start: 12-21-2016 End: 12-21-2016 Colonoscopy flx dx w/collj spec when pfrmd Colonoscopy [facility] [employer] Work Phone: Start: 12-21-2016 End: 12-21-2016 Follow Up Appt Other Follow Up Appt Other [facility] [employer] Work Phone: Start: 12-21-2016 End: 12-21-2016 Appointment Appointment [facility] [employer] Work Phone: Start: 12-21-2016 End: 12-21-2016 Diagnostic colonoscopy Colonoscopy [facility] Work Phone: Start: 12-21-2016 End: 12-21-2016 Follow Up Appt Other Follow Up Appt Other [facility] [employer] Work Phone: Start: 2009 Pneumococcal Vaccine: 50+ (1 of 1 - PCV) Pneumococcal Vaccine: 50+ (1 of 1 - PCV) [facility] Start: 2009 Shingles (RZV) Vaccine (1 of 2) Shingles (RZV) Vaccine (1 of 2) [facility] Start: 2009 SHINGRIX VACCINE (1 of 2) SHINGRIX VACCINE (1 of 2) [facility] Start: 02-07-2004 Cholesterol [Mass/volume] in Serum or Plasma Cholesterol [facility] Start: 02-07-2004 COLOGUARD (FIT-DNA) COLOGUARD (FIT-DNA) [facility] Start: 02-07-2004 Colonoscopy COLONOSCOPY [facility] Start: 02-07-2004 COLORECTAL CANCER SCREENING COLORECTAL CANCER SCREENING [facility] Start: 02-07-[address] COLONOGRAPHY [facility] Start: 02-07-2004 FECAL OCCULT BLOOD FECAL OCCULT BLOOD [facility] Start: 02-07-2004 Lipid 1996 panel - Serum or Plasma Lipid Screening [facility] Start: 02-07-2004 Lipid panel Lipid Screening [facility] Start: 02-07-2004 LIPID SCREEN LIPID SCREEN [facility] Start: 02-07-2004 Screening for malignant neoplasm of colon [facility] Start: 02-07-2004 SIGMOIDOSCOPY SIGMOIDOSCOPY [facility] Start: 1999 Mammography [facility] Start: 1999 Screening for malignant neoplasm of breast [facility] Start: 1989 HPV TESTING HPV TESTING [facility] Start: 02-07-1980 PAP TESTING PAP TESTING [facility] Start: 02-07-1980 Screening for malignant neoplasm of cervix Pap Smear [facility] Start: 1978 Pneumococcal Vaccine: 50+ (1 of 2 - PCV) Pneumococcal Vaccine: 50+ (1 of 2 - PCV) [facility] Start: 1978 Shingrix Vaccine (1 of 2) Shingrix Vaccine (1 of 2) [facility] Start: 1978 Urine microalbumin profile [facility] Start: 1977 HEPATITIS C SCREENING HEPATITIS C SCREENING [facility] Start: 1977 Hepatitis C screening [facility] Start: 1977 HIV SCREENING HIV SCREENING [facility] Start: 1977 HIV screening HIV Screening [facility] Start: 1974 HIV screening HIV Test [facility] Start: 1965 Pneumococcal vaccination Pneumococcal Vaccine (1 of 2 - PCV) [facility] Start: 1965 Pneumococcal Vaccine: 65+ (1 of 2 - PCV) Pneumococcal Vaccine: 65+ (1 of 2 - PCV) [facility] Start: 1959 Screening for malignant neoplasm of colon Colonoscopy [facility] Anion gap in Serum o r Plasma [facility] Bilirubin measuremen t, urine [facility] Bilirubin measuremen t, urine [facility] BUN/Creatinine ratio [facility] Calcium [Mass/volume ] in Serum or Plasma [facility] Carbon dioxide, tota l [Moles/volume] in Central venous blood [facility] End: 09-25-2025 Carcinoembryonic Ag [Mass/volume] in Serum or Plasma CARCINOEMBRYONIC ANTIGEN Lab Routine Adenocarcinoma of cecum (HCC) Once per month for 12 Occurrences starting 09/25/2024 until 09/25/2025 [facility] Comment on above: Once per month for 12 Occurrences starti ng 09/25/2024 until 09/25/2025 Carcinoembryonic Ag [Mass/volume] in Serum or Plasma CARCINOEMBRYONIC ANTIGEN Lab Routine Adenocarcinoma of cecum (HCC) 11/05/2024 10:20 AM EDT [facility] Work Phone: Carcinoembryonic Ag [Mass/volume] in Serum or Plasma CARCINOEMBRYONIC ANTIGEN Lab Routine Adenocarcinoma of cecum (HCC) 11/18/2024 2:26 PM T [facility] Work Phone: Carcinoembryonic Ag [Mass/volume] in Serum or Plasma CARCINOEMBRYONIC ANTIGEN Lab Routine Adenocarcinoma of cecum (HCC) 11/29/2024 11:[address] [facility] Work Phone: End: 02-12-2025 CBC W Auto Differential panel - Blood COMPLETE BLOOD COUNT AND DIFFERENTIAL Lab STAT Malignant neoplasm of ascending colon (HCC) Once per month for 6 Occurrences starting 02/14/2024 until 02/12/2025 [facility] Work Phone: Comment on above: Once per month for 6 Occurrences startin g 02/14/2024 until 02/12/2025 End: 09-25-2025 CBC W Auto Differential panel - Blood COMPLETE BLOOD COUNT AND DIFFERENTIAL Lab STAT Adenocarcinoma of cecum (HCC) Every other week for 25 Occurrences starting 09/25/2024 until 09/25/2025 [facility] Work Phone: Comment on above: Every other week for 25 Occurrences star aniag 09/25/2024 until 09/25/2025 End: 02-12-2025 Comprehensive metabolic 2000 panel - Serum or Plasma COMPREHENSIVE METABOLIC PANEL Lab STAT Malignant neoplasm of ascending colon (HCC) Once per month for 6 Occurrences starting 02/14/2024 until 02/12/2025 [facility] Comment on above: Once per month for 6 Occurrences startin g 02/14/2024 until 02/12/2025 End: 09-25-2025 Comprehensive metabolic 2000 panel - Serum or Plasma COMPREHENSIVE METABOLIC PANEL Lab STAT Adenocarcinoma of cecum (HCC) Every other week for 25 Occurrences starting 09/25/2024 until 09/25/2025 [facility] Comment on above: Every other week for 25 Occurrences star dora 09/25/2024 until 09/25/2025 Creatinine [Mass/vol ume] in Serum or Plasma [facility] End: 04-06-2025 CT Abdomen and Pelvis W contrast IV CT ABD/PEL W IVCON Radiology Routine Right lower quadrant abdominal pain 1 Occurrences starting 03/07/2024 until 04/06/2025 [facility] Work Phone: Comment on above: 1 Occurrences starting 03/07/2024 until 04/06/2025 CT Abdomen and Pelvi s W contrast IV CT ABD/PEL W IVCON Radiology Routine Right lower quadrant abdominal pain 03/15/2024 2:51 PM EST [facility] Work Phone: End: 08-01-2025 CT Abdomen and Pelvis W contrast IV CT ABD/PEL W IVCON Radiology Routine Right lower quadrant abdominal pain 1 Occurrences starting 07/02/2024 until 08/01/2025 [facility] Work Phone: Comment on above: 1 Occurrences starting 07/02/2024 until 08/01/2025 End: 09-04-2025 CT Abdomen and Pelvis W contrast IV CT ABD/PEL W IVCON Radiology Routine Right upper quadrant abdominal pain Intra-abdominal and pelvic swelling, mass and lump, unspecified site 1 Occurrences starting 08/05/2024 until 09/04/2025 [facility] Work Phone: Comment on above: 1 Occurrences starting 08/05/2024 until 09/04/2025 End: 12-29-2025 CT Abdomen and Pelvis W contrast IV CT ABD/PEL W IVCON Radiology Routine Malignant neoplasm of ascending colon (HCC) 1 Occurrences starting 11/29/2024 until 12/29/2025 [facility] Work Phone: Comment on above: 1 Occurrences starting 11/29/2024 until 12/29/2025 End: 12-29-2025 CT Chest W contrast IV CT CHEST W IVCON Radiology Routine Malignant neoplasm of ascending colon (HCC) 1 Occurrences starting 11/29/2024 until 12/29/2025 [facility] Comment on above: 1 Occurrences starting 11/29/2024 until 12/29/[address]25 CT Chest WO contrast CT CHEST WO IVCON Radiology Routine Intra-abdominal and pelvic swelling, mass and lump, unspecified site 01/26/2024 8:54 AM EDT [facility] Work Phone: End: 02-16-2025 CT Chest WO contrast CT CHEST WO IVCON Radiology Routine Intra-abdominal and pelvic swelling, mass and lump, unspecified site 1 Occurrences starting 01/18/2024 until 02/16/2025 [facility] Work Phone: Comment on above: 1 Occurrences starting 01/18/2024 until 02/16/2025 CT Chest WO contrast CT CHEST WO IVCON Radiology Routine Lung nodules 05/03/2024 11:36 AM EST [facility] Work Phone: End: 06-12-2025 CT Chest WO contrast CT CHEST WO IVCON Radiology Routine Lung nodules 1 Occurrences starting 05/13/2024 until 06/12/2025 [facility] Work Phone: Comment on above: 1 Occurrences starting 05/13/2024 until 06/12/2025 End: 11-09-2024 CT Small bowel W contrast PO and W contrast IV CT ENTEROGRAPHY W IVCON Radiology Routine Inflammatory bowel disease Perforated appendix 1 Occurrences starting 10/11/2023 until 11/09/2024 [facility] Work Phone: Comment on above: 1 Occurrences starting 10/11/2023 until 11/09/2024 Erythrocyte mean corpuscular volume determination [facility] Erythrocyte mean corpuscular volume determination [facility] Erythrocyte mean corpuscular volume determination [facility] Glucose [Mass/volume ] in Serum or Plasma [facility] Guidance for biopsy of Abdomen IMAGING GUIDED BIOPSY ABDOMEN/RETROPERITONEAL MASS Radiology Routine Other intra-abdominal and pelvic swelling, mass and lump Ordered: 07/12/2024 [facility] Work Phone: Comment on above: Ordered: 07/12/2024 Hematocrit [Volume Fraction] of Blood [facility] Hematocrit [Volume Fraction] of Blood [facility] Hematocrit [Volume Fraction] of Blood [facility] Hemoglobin [Mass/vol ume] in Blood [facility] Hemoglobin [Mass/vol ume] in Blood [facility] Hemoglobin [Mass/vol ume] in Blood [facility] Hemoglobin [Presence ] in Urine [facility] Hemoglobin [Presence ] in Urine [facility] Leukocytes [#/volume ] in Blood [facility] Leukocytes [#/volume ] in Blood [facility] Leukocytes [#/volume ] in Blood [facility] End: 09-25-2025 Magnesium [Mass/volume] in Serum or Plasma MAGNESIUM Lab STAT Adenocarcinoma of cecum (HCC) Every other week for 25 Occurrences starting 09/25/2024 until 09/25/2025 [facility] Comment on above: Every other week for 25 Occurrences star ting 09/25/2024 until 09/25/2025 Mean corpuscular hemoglobin concentration determination [facility] Mean corpuscular hemoglobin concentration determination [facility] Mean corpuscular hemoglobin concentration determination [facility] Mean corpuscular hemoglobin determination [facility] Mean corpuscular hemoglobin determination [facility] Mean corpuscular hemoglobin determination [facility] Measurement of keton es in urine using dipstick [facility] Measurement of keton es in urine using dipstick [facility] Measurement of renal function [facility] Microscopic urinalysis [facility] Microscopic urinalysis [facility] Neutrophil count [facility] Neutrophil count [facility] Neutrophil count [facility] Neutrophil percent differential count [facility] Neutrophil percent differential count [facility] Neutrophil percent differential count [facility] Organism count, microscopic method [facility] Patient Education [facility] Work Phone: Patient referral [facility] Work Phone: pH of Urine [facility] pH of Urine [facility] Platelets [#/volume] in Blood [facility] Platelets [#/volume] in Blood [facility] Platelets [#/volume] in Blood [facility] Potassium measurement [facility] Red blood cell count [facility] Red blood cell count [facility] Red blood cell count [facility] Red cell distributio n width determination [facility] Red cell distributio n width determination [facility] Red cell distributio n width determination [facility] REFERRAL FOR ADDITIO NAL BIOMARKER AND MOLECULAR TESTING REFERRAL FOR ADDITIONAL BIOMARKER AND MOLECULAR TESTING Lab Routine Adenocarcinoma of cecum (HCC) 09/25/2024 7:50 AM EDT [facility] Serum chloride measurement [facility] Sodium measurement [facility] Specific gravity of Urine [facility] Specific gravity of Urine [facility] Stroke after atrial fibrillation 5 year risk [#] Sun 2003 IR PORTOCATH PLACEMENT Radiology Routine Adenocarcinoma of cecum (HCC) Ordered: 09/25/2024 [facility] Comment on above: Ordered: 09/25/2024 Troponin T.cardiac [Mass/volume] in Serum or Plasma by High sensitivity method [facility] Urea nitrogen [Mass/volume] in Serum or Plasma [facility] Urine blood test [facility] Urine dipstick for glucose [facility] Urine dipstick for glucose [facility] Urine dipstick for leukocyte esterase [facility] Urine dipstick for leukocyte esterase [facility] Urine dipstick for nitrite [facility] Urine dipstick for nitrite [facility] Urine dipstick for protein [facility] Urine dipstick for protein [facility] Urine examination [facility] Urine examination [facility] Urine microscopy: epithelial cells [facility] Urine microscopy: epithelial cells [facility] Urine microscopy: re d cells [facility] Urine Microscopy: wh ite cells [facility] Urobilinogen [Presen ce] in Urine [facility] Urobilinogen [Presen ce] in Urine [facility] White blood cell count [facility] Immunizations Immunization Date Immunization Notes Care Provider Mo bonilla 08-16-2022 tetanus toxoid, reduced diphtheria toxoid, and acellular pertussis vaccine, adsorbed Sheila Nagelnitesh [facility] Work Phone: [facility] 03-01-2021 Pfizer Monovalent (12+ yrs) SARS-COV-2 (COVID-19) vaccine, mRNA, spike protein, LNP, pres. free, 30 mcg/0.3mL dose (TGT=[id number]) Sheila Nagelnitesh [facility] Work Phone: [facility] [facility] 07-01-2020 Pfizer Monovalent (12+ yrs) SARS-COV-2 (COVID-19) vaccine, mRNA, spike protein, LNP, pres. free, 30 mcg/0.3mL dose (MLZ=796) Sheila Nagelnitesh [facility] Work Phone: [facility] 06-06-2020 Pfizer Monovalent (12+ yrs) SARS-COV-2 (COVID-19) vaccine, mRNA, spike protein, LNP, pres. free, 30 mcg/0.3mL dose (UHZ=134) Sheila Nagelnitesh [facility] Work Phone: [facility] 01-09-2015 influenza, injectable, quadrivalent, contains preservative Sheila Nagelnitesh [facility] Work Phone: [facility] 01-09-2015 influenza virus vaccine, unspecified formulation Sheila Nagelnitesh [facility] Work Phone: [facility] NEGATED: Highlighted row has not occurred!01-08-2024 influenza, seasonal, injectable, preservative free Mary Moss [facility] Work Phone: [facility] Comment on above: Deferred: Patient Re fused - Pt. wants prior to discharge. Payers Date Payer Category Payer Self-pay [id number] 2022 Unknown SP/UNINSURED PEN [facility] ([place], [place]) FINANCIAL PROGRAM EVALUATION [id number] 2022-[address] [place] [address] Other [id number] 2022 Unknown [id number] 2022 Unknown [id number] 2021 Medicaid [id number] 2021 Medicare [id number]. [id number] 2021 Medicare [id number] 2002 Medicaid [place] MED[place] MEDICA[place] [id number] 2002-Present [phone] [address] [place] [address] Medicaid [id number] 1959 Unknown [id number] 1959 Unknown [id number] Unknown [id number] Unknown [id number] Unknown [id number] Unknown [id number] Unknown [id number] Unknown [id number] [id number] Unknown [id number] [id number] Unknown [id number] [id number] Unknown [id number] [id number] Unknown [id number] [id number] Unknown [id number] [id number] Unknown [id number] [id number] Unknown [id number] Unknown [id number] Social History Date Type Detail Facility Start: 05-03-2019 End: 12-17-2024 Tobacco smoking status SDIS Ex-smoker [facility] Start: 05-03-2019 End: 06-17-2024 Tobacco use and exposure Smokeless tobacco non-user [facility] Start: 1960 Sex Assigned At Not on file [facility] Start: 07-24-2020 End: 05-13-2024 Tobacco smoking status [facility] Unknown if ever smoked [facility] Start: 11-06-2019 Occasional [facility] Start: 11-06-2019 None [facility] Start: 11-06-2019 Alone [facility] Start: 07-24-2020 Non-smoker [facility] Start: 1960 Sex Assigned At Female [facility] Start: 1977 End: 03-27-1995 History of tobacco use Current smoker [facility] Start: 05-03-2019 End: 09-18-2023 Gender identity Not on file [facility] Start: 05-03-2019 End: 09-18-2023 History of Social function [facility] Start: 05-28-2018 Adult Depression Screening Assessment 2 [facility] (I/We) worried wheth er (my/our) food would run out before (I/we) got money to buy more. Never true [facility] Work Phone: Start: 10-03-2023 End: 12-18-2023 Alcohol intake Current drinker of alcohol (finding) [facility] Start: 10-03-2023 [facility] Start: 1978 End: 03-27-1995 History of tobacco use Cigarette Smoker [facility] History of tobacco use Passive smoker [facility] Start: 12-28-2023 End: 12-03-2024 Alcoholic beverage intake Ex-drinker (finding) [facility] Start: 12-28-2023 Alcohol Comment sober, quit 3 years ago [facility] Has the [facility] [employer] oil, or water company threatened to shut off services in your home in past 12Mo No [facility] Start: 07-11-2024 Sex Female (finding) [facility] Has the [facility], oil, or water company threatened to shut off services in your home in past 12Mo Yes [facility] (I/We) worried wherene er (my/our) food would run out before (I/we) got money to buy more. Sometimes true [facility] Medical Equipment Procedure Code Equipment Code [...] Plastic 8f Chronoflex Catheter With Kit - [id number] Start: 10-21-2024 CENTER SCREW FDA Start: [...] rt: 11-06-2019 PERIPHERAL SCREW FDA Start: 11-06-2019 FDA Start: 11-06-2019 FDA Start: 11-06-2019 FDA Start: 11-06-2019 FDA Start: 11-06-2019 FDA Start: 11-06-2019 FDA Start: 11-06-2019 FDA Start: 11-06-2019 FDA Start: 11-06-2019 FDA Start: 11-06-2019 FDA Start: 11-06-2019 FDA Start: 11-06-2019 Goals Date Patient Goal Desired Activity /State Personal health goal Personal health goal Functional Status Date Assessment Result Facility 11-08-2024 Functional status Up ad salma [facility] Work Phone: 09-13-2024 Functional status Chair [facility] Work Phone: 09-12-2024 Functional status Well [facility] Work Phone: 08-21-2024 Are you deaf, or do you have serious difficulty hearing No 08/21/2024 1:20 PM Felicia Galan, REAL No [facility] 08-21-2024 Are you blind, or do you have serious difficulty seeing, even when wearing glasses No 08/21/2024 1:20 PM Felicia Galan RN No [facility] 08-21-2024 Do you have serious difficulty walking or climbing stairs No 08/21/2024 1:20 PM Felicia Galan, REAL No [facility] 08-21-2024 Do you have difficul ty dressing or bathing No 08/21/2024 1:20 PM Felicia Galan, REAL No [facility] 08-21-2024 Because of a physica l, mental, or emotional condition, do you have difficulty doing errands alone such as visiting a physician's office or shopping No 08/21/2024 1:20 PM Felicia Galan, REAL No [facility] 01-08-2024 Are you deaf, or do you have serious difficulty hearing No 01/08/2024 1:30 PM Angel Beck RN No [facility] 01-08-2024 Are you blind, or do you have serious difficulty seeing, even when wearing glasses No 01/08/2024 1:30 PM Angel Beck, RN No [facility] 01-08-2024 Do you have serious difficulty walking or climbing stairs No 01/08/2024 1:30 PM Angel Beck, RN No [facility] 01-08-2024 Do you have difficul ty dressing or bathing No 01/08/2024 1:30 PM Angel Beck, RN No [facility] 01-08-2024 Because of a physica l, mental, or emotional condition, do you have difficulty doing errands alone such as visiting a physician's office or shopping Yes 01/08/2024 1:30 PM Angel Beck RN Yes [facility] 02-01-2019 Are you deaf, or do you have serious difficulty hearing No 02/01/2019 11:10 AM Jenna Lemons RN No [facility] 02-01-2019 Are you blind, or do you have serious difficulty seeing, even when wearing glasses No 02/01/2019 11:10 AM Jenna Lemons RN No [facility] 02-01-2019 Do you have serious difficulty walking or climbing stairs No 02/01/2019 11:10 AM Jenna Lemons RN No [facility] 02-01-2019 Do you have difficul ty dressing or bathing No 02/01/2019 11:10 AM Jnena Lemons RN No [facility] 02-01-2019 Because of a physica l, mental, or emotional condition, do you have difficulty doing errands alone such as visiting a physician's office or shopping No 02/01/2019 11:10 AM Jenna Lemons RN No [facility] Mental Status Date Assessment Result Facility 11-20-2024 Cognitive function Voice/Name [facility] Work Phone: 11-08-2024 Cognitive function Voice/Name [facility] Work Phone: 09-13-2024 Cognitive function Voice/Name [facility] Work Phone: 08-21-2024 Because of a physica l, mental, or emotional condition, do you have serious difficulty concentrating, remembering, or making decisions No 08/21/2024 1:20 PM EDT Felicia Castro RN No [facility] 01-08-2024 Because of a physica l, mental, or emotional condition, do you have serious difficulty concentrating, remembering, or making decisions Yes 01/08/2024 1:30 PM EDT Angel Tompkins RN Yes [facility] 02-01-2019 Because of a physica l, mental, or emotional condition, do you have serious difficulty concentrating, remembering, or making decisions No 02/01/2019 11:10 AM Jenna Lemons RN No [facility] Clinical Notes 01-29-2019 to 01-07-2025 Telephone Encounter - Kate Castillo RN - 12/06/2024 2:44 PM EDTTelephone Encounter - Kate Castillo RN - 12/06/2024 2:44 PM EDTTelephone Encounter - Christina Leach - 12/05/2024 11:22 AM EDT Note Date & Type Note Facility 01-07-2025 Note [facility] 12-31-2024 Note [facility] 12-27-2024 Note [facility] 12-26-2024 Note [facility] 12-24-2024 Note [facility] 12-17-2024 Radiology Diagnostic study note [facility] 12-13-2024 Note [facility] 12-06-2024 Telephone encounter Note Spoke with pharmacy at [facility]. Unable to d/c Rx for klor-con pills. Pharmacist states that patient can put a tablet in 6-8 oz of water and it will dissolve. Not all will but these do. Will keep original Rx as is. Judy Castillo RN [facility] 12-06-2024 Miscellaneous Notes Spoke with pharmacy at [facility]. Unable to d/c Rx for klor-con pills. Pharmacist states that patient can put a tablet in 6-8 oz of water and it will dissolve. Not all will but these do. Will keep original Rx as is. Judy Castillo RN Dr. Poole reviewed BMP. K 3.2 Rx for Klor-Con 20mEq pended for review/sign. Judy Castillo RN 9:00 was not available on port schedule. Called patient and scheduled for 10. Call to patient and aware. She will come in tomorrow around 9am to have lab drawn. Order pended. Judy Castillo RN Per Dr. Poole, check stat potassium tomorrow am, 12/06/24. Will assess for prescription need. Judy Castillo RN Patient called back and was advised of the below. Her response is no she isn't taking anything and is requesting a Gummy prescription due to pills being so large and they might be cheaper. Please advise patient Christina Hany documented in this encounter [facility] 12-06-[address] Poole reviewed BMP. K 3.2 Rx for Klor-Con 20mEq pended for review/sign. Judy Castillo RN [facility] 12-05-2024 Telephone encounter Note 9:00 was not available on port schedule. Called patient and scheduled for 10. [facility] Work Phone: 12-05-2024 Telephone encounter Note Call to patient and aware. She will come in tomorrow around 9am to have lab drawn. Order pended. Judy Castillo RN [facility] 12-05-2024 Telephone encounter Note Per Dr. Poole, check stat potassium tomorrow am, 12/06/24. Will assess for prescription need. Judy Castillo RN [facility] 12-05-2024 Telephone encounter Note Patient called back and was advised of the below. Her response is no she isn't taking anything and is requesting a Gummy prescription due to pills being so large and they might be cheaper. Please advise patient Christina Hany [facility] 12-03-2024 Note [facility] 12-03-2024 History of Presen t illness Narrative PALLIATIVE MEDICINE PROGRESS NOTE SERVICE DATE: December 03, 2024 IDENTIFICATION AND INTRODUCTION: Lakesha Koch is a 64 year old female This visit took place Virtually; I have communicated my name and active licensure. The patient's identity and physical location were verified at the time of this visit. The patient or their legal public utilities sales representative has been informed of the risks and benefits of -- and alternatives to -- treatment through a remote evaluation and consents to proceed with the evaluation remotely. 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 Spring c/b local recurrence in 2024 s/p ex-lap with small bowel resection and redo ileocolic anastomosis, resection of right retroperitoneal mass and pelvic mass (08/28/24). Course further complicated by disease progression with liver metastases and she was started on palliative chemotherapy with FOLFOX (11/19/24). This was c/b cardiac complications resulting in STEMI and cardiac arrest with ROSC (11/21/24). No treated with oxaliplatin alone per Dr. Poole. Seen by [facility] on 09/20 Being seen today in follow up to assist with symptom control and support. Subjective Seen today with sister Bianka Very weak and tired Had chemo yesterday and last few days before chemo were better Trouble eating. Nothing tastes good. No mouth sores or signs of thrush. Sick to stomach this morning. Took compazine - helpful Knows not to take zofran until 3 days post chemo. Had olanzapine previously - at night, was helping appetite. Neuropathy in hands and mouth has already started Anything cold is terrible. Pins and needles Had resolved before this cycle. Still has pain in gut area Abdomen - lower right abdomen. Largely constant. Sharp, nagging, cramping like pain. 7/10 yesterday Not a whole lot better today. Able to bring it down to about 5/10 with medication. Taking hydromorphone BID Bowels move everyday Has been treated for cdiff in the past - currently taking vancomycin x 2 Worries about eating and caring at home Sister going back to [place] this week. Dad is local and lots of good friends around. Has spoken to social work at treatment. Has someone coming in for cleaning. Bianka did a spreadsheet for the medications. REVIEW OF SYSTEMS: Review of Systems Modified ESAS ([place] Symptom Assessment Scale) Information Provided By: Patient Pain: Moderate Nausea: Mild Loss of Appetite: Severe Constipation: None Shortness of Breath: None Drowsiness: None Tiredness: Moderate Depression: None Anxiety: None How you feel overall: Fair Objective PHYSICAL EXAMINATION: There were no vitals taken for this visit. Physical Exam Constitutional: General: She is not in acute distress. Comments: Cachectic Pulmonary: Effort: Pulmonary effort is normal. No respiratory distress. Neurological: Mental Status: She is alert and oriented to person, place, and time. Comments: No myoclonus Psychiatric: Mood and Affect: Mood normal. DATA: Diagnostic tests reviewed for today's visit: Most recent labs and imaging results. Creatinine Date Value Ref Range Status 11/29/2024 0.65 0.58 - 0.96 mg/dL Final CrCl cannot be calculated (Unknown ideal weight.). Opioid Management: Yes Indication for Opioid Prescribing: Cancer related pain ORT-OUD Score: 0 A score of 3 or higher may indicate a higher risk for future development of aberrant drug related behavior or opioid use disorder. Informed consent for chronic opiate therapy obtained and written pain agreement: Will complete at next visit Naloxone offered?: Previously prescribed Course of treatment, patient's response and adherence to the prescribed treatment plan reviewed, including non-pharmacological and non-opioid treatment modalities? Yes Have any complications or exacerbations of the underlying condition causing the pain been reviewed? Yes How much does pain impede patient s ability to engage in work or other purposeful activities, interfere with your activities of daily living, physical activity, or quality of your family life and social activities? Significantly Aberrancies in pain panel? Pending Any aberrant drug related behaviors since last visit? No Rationale for continuing opioid treatment: Improved comfort and function based on an ongoing functional assessment Benefits of Opioid Therapy outweigh risks: Yes Prescribed Morphine Equivalent Daily Dose (MEDD): Yes < 50 MEDD OARRS Checked: PDMP website checked and validated. All prescriptions have been APPROPRIATELY filled. No suspicious activity was identified. 12/03/2024 by Kristi Barroso APRN.AQUATIC CENTRE MANAGER Urine Screen Lab Results Component Value Date UAMPH Negative 09/09/2023 UBARB2 Negative 09/09/2023 UBENZ Negative 09/09/2023 UCOC2 Negative 09/09/2023 UOPI Negative 09/09/2023 UOXYC Negative 09/09/2023 UPCP Negative 09/09/2023 UTHC Preliminary positive (A) 09/09/2023 UETOH <11 09/09/2023 Urine Panel: No results found for: UQCANN, UQBNZL, VJI5FBK, UQAMPH, UQMAMP, UQBUPRE, UQNORBUP, UQMTHD, UQEDDP, UQTRAM, UQDTRM, UQFNTL, UQNFTL, UQCODE, UQMORP, UQDCDN, UQHCOD, UQOXYC, UQHMOR, UQOXYM, UQCREA, UQPH, UQSPGR, UQOXID, UQSPQ Assessment & Plan (Z51.5) Palliative care by specialist (primary encounter diagnosis) - Educated on the role of palliative care in the setting of serious illness to assist with symptom control and complex decision making in addition to the medical team. - provided contact information and reviewed reasons to call. - differentiated hospice and palliative care. (C18.0) Adenocarcinoma of cecum (HCC) - f/u with oncology (G89.3) Cancer related pain - nociceptive somatic and visceral pain associated to prior surgery and liver mets - increase frequency of hydromorphone 2 mg Q6H PRN - avoid NSAIDs - ok for APAP 1000 mg BID PRN - call if ineffective (R63.4) Weight loss (R63.0) Anorexia (R11.2, T45.1X5A) CINV (chemotherapy-induced nausea and vomiting) - encouraged small frequent meals - continue prochlorperazine 10 mg Q6H PRN for nausea first 3 days after chemo - continue ondansetron 8 mg Q8H PRN (not for first 3 days after chemo) - restart olanzapine 10 mg QHS (previously very well tolerated and improved appetite) Medical Decision Making: Problems: Moderate: 1+ chronic illnesses with change Risk: High: Drug therapy requiring intensive monitoring Medical Decision Making Level: 4 - Moderate Next Visit: 4 Weeks in-person Kristi Barroso APRN.CNP December 03, 2024 3:00 PM This note may have been partially generated using the [employer] voice recognition system. While every effort was made to correct voice recognition errors, kindly be aware that some errors may occasionally occur. documented in this encounter [facility] 11-29-2024 Note [facility] 11-29-2024 History of Presen t illness Narrative (Elements copied from my note dated November 18, 2024, have been reviewed and updated where appropriate, and all reflect current assessment and medical decision making from today's encounter, November 29, 2024) HISTORY OF PRESENT ILLNESS: Lakesha Koch [...] 09-25-24 follow up, post debulking. CT at [place] September 13, 2024 looks ok, report being pursued 10-10-24 follow up, she pushed her appointments back to accommodate a trip, we dicussed the importance of timely adjuvant therapy post resection of locally recurrent disease 11-29-24 follow up had chest pain in midst of cycle 2 5FU infusion, went to ER had v fib arrest, transfer to [facility] showed LV focal hypokinesis. Cath negative. Now doing ok. Had another episode diarrhea, so we refilled another course of oral vancomycin. We had a long chat about events and plans moving forward. CLINICAL IMPRESSION: History of stage II colon cancer with high risk features. Now recurrent, metastatic to liver 5FU related [place]. RECOMMENDATION/PLAN: Plan continue treatment with oxaliplatin alone. Holding avastin given [place]. See back cycle after December CT scan. Written and verbal health teaching given to [...] unable to recall allergy CURRENT OUTPATIENT MEDICATIONS: LORazepam (ATIVAN) 0.5 mg Take 0.5 mg by mouth two times a day as needed. vancomycin (VANCOCIN) 125 mg capsule Take 1 capsule by mouth four times daily for 10 days. metoprolol tartrate, short acting, (LOPRESSOR) 25 mg tablet Take 0.5 tablets by mouth two times a day. HYDROmorphone 2 mg tablet Take 2 mg by mouth two times a day as needed for pain. prochlorperazine (COMPAZINE) 10 mg tablet Take 1 tablet by mouth every 6 hours as needed for nausea/vomiting. lidocaine-prilocaine (EMLA) 2.5-2.5 % cream Apply to port 60 minutes before accessing lidocaine (SALONPAS) 4 % patch Apply 2 patches to affected area as directed once daily. Keep patches on for 12 hour and remove patches after 12 hours. (Patient taking differently: Apply 2 patches as directed once daily as needed.) ondansetron orally disintegrating (ZOFRAN ODT) 4 mg disintegrating tablet Take 1 tablet by mouth every 8 hours as needed for nausea/vomiting. diazePAM (VALIUM) 5 mg tablet Take 1 tablet by mouth every 12 hours as needed for anxiety for up to 10 days. (Patient not taking: Reported on 11/29/2024) OLANZapine (ZYPREXA) 10 mg tablet Take 1 tablet by mouth daily at bedtime. (Patient not taking: Reported on 11/29/2024) gabapentin (NEURONTIN) 300 mg capsule Take 1 capsule by mouth once daily for 90 days. (Patient not taking: Reported on 11/29/2024) alendronate (FOSAMAX) 70 mg tablet Take 70 mg by mouth one time a week. On Saturdays (Patient not taking: Reported on 11/29/2024) sertraline (ZOLOFT) 50 mg tablet Take 50 mg by mouth once daily. (Patient not taking: Reported on 11/29/2024) REVIEW OF SYSTEMS: GENERAL: No fever, night sweats, weight loss or malaise. All other reviewed and negative other than HPI. PHYSICAL EXAMINATION: VITAL SIGNS: BP 90/54 Pulse 106 Temp (Src) 98.2 (Temporal) Wt 82 lb (37.2kg) SpO2 99% GENERAL APPEARANCE: Well appearing, in no acute distress, alert and oriented x3, well-hydrated, well nourished. I spent a total of 40 minutes on the date of the service which included preparing to see the patient, [id number] patient care, completing clinical documentation, obtaining and/or reviewing separately obtained history, counseling and educating the patient/family/caregiver, ordering medications, tests, or procedures, communicating with other HCPs (not separately reported), independently interpreting results (not separately reported), communicating results to the patient/family/caregiver, and care coordination (not separately reported). And review of NCCN guidelines Electronically Signed: Jimmie Poole MD November 29, 2024 documented in this encounter [facility] 11-28-2024 Telephone encounter Note Updated Dr. Poole this am and he would like for patient to start the Vancomycin at this time, prophylactically. Judy Castillo RN Call to patient, aware of above. She will have someone picking machine operator helper RX today. Judy Castillo RN [facility] Work Phone: 11-28-[address] Poole this am and he would like for patient to start the Vancomycin at this time, prophylactically. Judy Castillo RN Call to patient, aware of above. She will have someone picking machine operator helper RX today. Judy Casitllo RN [facility] Care Coordination FOLLOW-UP NOTE Patient identified by name and date of . YES Spoke to patient Summary: (Reason for follow-up) Call to patient this am for update. She denies any diarrhea since 12noon yesterday. After phone call yesterday, she had 2 more episodes of diarrhea, took 2 tabs Imodium and then 1 tab of Imodium. No diarrhea since. She has been pushing fluids, eating ok, tolerating. Denies fever/chills, lightheadedness or dizziness or other issues/symptoms. She is aware of new Rx for Vancomycin and that I will clarify if she needs to start or wait and will call her back later today. Patient verbalized when to seek Medical Attention and an understanding of after- hours phone number and process: Yes Care Coordination Plan: Will update Dr. Poole and call back with further instructions. Kate Castillo RN November 28, 2024 documented in this encounter [facility] 11-28-2024 Telephone encounter Note Request completed. Thank you. [facility] Work Phone: 11-28-2024 Miscellaneous Notes Request completed. Thank you. No straight back for this patient. Can we call Adrienne 10am 01/10 and see if she is ok to move to a time on 01/09? And, then Lakesha can have that time on Monday? Judy Castillo RN Okay for 01/13 to be a straightback? Dr. Poole is out of office on 01/10. FABRICATION OPERATOR's schedules are full. documented in this encounter [facility] 11-28-2024 Telephone encounter Note SOCIAL WORK FOLLOW UP NOTE: CANCER CENTER Date of service: November 28, 2024 Lakesha Koch is being seen for a follow up social work visit. Today's visit includes: family TOPICS ADDRESSED: SW received an email from pt's sister, Bianka, this date. Bianka voices concerns about the following: Help with conference producer, cleaning, meal prep, Help managing medications, Help bathing, Help keeping up with bills - some are already going to collections, Transportation to [facility], What is the possibility of getting her into a [facility] facility?, We are gong to ask the surgeon about the possibility of inserting a g-tube, since she is barely eating. This may not be possible because of her previous 2 abdominal surgeries, and because of her weak condition. If it is possible, will this prevent her from being accepted into a [facility] facility?, Family is 800 miles away. Would she be able to be transferred to [facility] in [place] so she is closer to family? It would be difficult for her to move in with one of us at this time. Our father is 91 years old and we fear he would not be able to care for her. One sister is looking into family leave. I also forgot to ask you about hospice and palliative care. SW responded to sister's email with instructions and community resources for each area of concerns. SW forwarded email to RNCC for her reference as well. Pt has an appointment scheduled for tomorrow 11/29. Per RNCC, physician is aware of above concerns and will be speaking to pt about long-term outlook at tomorrow's appointment. Also per chart review, RNCC spoke to pt this date who reports she is doing well. PLAN: Continue follow up as needed , Provide emotional support to patient/family, and Referral to community resource F/U APPOINTMENT: PRN Assigned SW listed in Care Team tab: Yes EVIE Peterson-Roger [facility] 11-28-2024 Miscellaneous Notes SOCIAL WORK FOLLOW UP NOTE: CANCER CENTER Date of service: November 28, 2024 Lakesha Koch is being seen for a follow up social work visit. Today's visit includes: family TOPICS ADDRESSED: SW received an email from pt's sister, Bianka, this date. Bianka voices concerns about the following: Help with conference producer, cleaning, meal prep, Help managing medications, Help bathing, Help keeping up with bills - some are already going to collections, Transportation to chemo, What is the possibility of getting her into a [facility] facility?, We are gong to ask the surgeon about the possibility of inserting a g-tube, since she is barely eating. This may not be possible because of her previous 2 abdominal surgeries, and because of her weak condition. If it is possible, will this prevent her from being accepted into a [facility] facility?, Family is 800 miles away. Would she be able to be transferred to [facility] in [place] so she is closer to family? It would be difficult for her to move in with one of us at this time. Our father is 91 years old and we fear he would not be able to care for her. One sister is looking into family leave. I also forgot to ask you about hospice and palliative care. SW responded to sister's email with instructions and community resources for each area of concerns. SW forwarded email to RNCC for her reference as well. Pt has an appointment scheduled for tomorrow 11/29. Per RNCC, physician is aware of above concerns and will be speaking to pt about long-term outlook at tomorrow's appointment. Also per chart review, RNCC spoke to pt this date who reports she is doing well. PLAN: Continue follow up as needed , Provide emotional support to patient/family, and Referral to community resource F/U APPOINTMENT: PRN Assigned DOM listed in Care Team tab: Yes ANG Peterson documented in this encounter [facility] 11-28-2024 Telephone encounter Note [facility] Care Coordination FOLLOW-UP NOTE Patient identified by name and date of . YES Spoke to patient Summary: (Reason for follow-up) Call to patient this am for update. She denies any diarrhea since 12noon yesterday. After phone call yesterday, she had 2 more episodes of diarrhea, took 2 tabs Imodium and then 1 tab of Imodium. No diarrhea since. She has been pushing fluids, eating ok, tolerating. Denies fever/chills, lightheadedness or dizziness or other issues/symptoms. She is aware of new Rx for Vancomycin and that I will clarify if she needs to start or wait and will call her back later today. Patient verbalized when to seek Medical Attention and an understanding of after- hours phone number and process: Yes Care Coordination Plan: Will update Dr. Poole and call back with further instructions. Kate Castillo RN November 28, 2024 [facility] 11-27-2024 Telephone encounter Note No straight back for this patient. Can we call Adrienne 10am 01/10 and see if she is ok to move to a time on 01/09? And, then Lakesha can have that time on Monday? Judy Castillo RN [facility] Work Phone: 11-27-2024 Telephone encounter Note Okay for 01/13 to be a straightback? Dr. Poole is out of office on 01/10. FABRICATION OPERATOR's schedules are full. [facility] 11-27-2024 Telephone encounter Note Will order another 10 day course of oral vancomycin. Jimmie Poole MD November 27, 2024 [facility] 11-27-2024 Miscellaneous Notes Will order another 10 day course of oral vancomycin. Jimmie Poole MD November 27, 2024 Care Coordination Triage Note [facility] [place] Situation: Patient reports Bowel symptoms Background: Colon, C2 Folfox 11/19/24 Assessment: Diarrhea symptoms: When did you start having loose stools? 12 hours ago How many loose stools have you had in the last 24 hours? 5 in last 12 hours. Is there any solid component to the stool? no In the last 24 hours, have you taken anything for your diarrhea? (Immodium?) no If yes, what and how often? na Are you experiencing any foul smell to the diarrhea? no Any fever, bloating, nausea, vomiting or cramping? no Any blood in the stool? no Are you eating and drinking normally? yes If no, what have you eaten and how much have you had to drink in the last 24 hours? na Are you taking any new medications, especially antibiotics or supplements? no If yes, what? na Any recent hospitalization? yes, 11/21/24 to 11/23/24 Patient advised to use Imodium, take 2 Imodium tablets now and another 1 tablet with each loose stool afterward and no more than 8 in 24 hour period. Encouraged to push fluids to replenish lost amount with diarrhea. Patient agreed. She will call back this afternoon or in the am if Imodium not helping. Will discuss with Dr. Poole if another C-diff test needed. Recommendations: Per RNCC, patient directed to: Manage at home. Instructions provided. Will follow with patient tomorrow AM if no return phone call by patient. Kate Castillo RN November 27, 2024 11:13 AM documented in this encounter [facility] 11-27-2024 Telephone encounter Note Care Coordination Triage Note [facility] [place] Situation: Patient reports Bowel symptoms Background: Colon, C2 Folfox 11/19/24 Assessment: Diarrhea symptoms: When did you start having loose stools? 12 hours ago How many loose stools have you had in the last 24 hours? 5 in last 12 hours. Is there any solid component to the stool? no In the last 24 hours, have you taken anything for your diarrhea? (Immodium?) no If yes, what and how often? na Are you experiencing any foul smell to the diarrhea? no Any fever, bloating, nausea, vomiting or cramping? no Any blood in the stool? no Are you eating and drinking normally? yes If no, what have you eaten and how much have you had to drink in the last 24 hours? na Are you taking any new medications, especially antibiotics or supplements? no If yes, what? na Any recent hospitalization? yes, 11/21/24 to 11/23/24 Patient advised to use Imodium, take 2 Imodium tablets now and another 1 tablet with each loose stool afterward and no more than 8 in 24 hour period. Encouraged to push fluids to replenish lost amount with diarrhea. Patient agreed. She will call back this afternoon or in the am if Imodium not helping. Will discuss with Dr. Poole if another C-diff test needed. Recommendations: Per RNCC, patient directed to: Manage at home. Instructions provided. Will follow with patient tomorrow AM if no return phone call by patient. Kate Castillo RN November 27, 2024 11:13 AM [facility] Work Phone: 11-26-[address] Poole called patient and Rx for Valium and Lopressor sent. Judy Castillo RN [facility] Work Phone: 11-26-[address] Poole called patient and Rx for Valium and Lopressor sent. Judy Castillo RN Pts. Sister Bianka contacted office, informed that pt. Is having a mental crisis right now . States it's because her sister states she has no idea what the plan of care is going forward. Since hospitalization with cardiac issues, this has increased her anxiety tremendously. Family is in [facility], and pt. Currently is staying with a friend here in [place]. Sister would like to hear from Dr. Poole today and also would like to have physician contact pt. Medical POA is sister Jeanette [phone], Other sister is Bianka [phone] Per discharge summary: On review of cath and echo and [...] patient voiced understanding of these risks. Per staff pharmacist, patient left the unit at 2039 via wheelchair. Pt. Also presented to [facility] Emergency room yesterday with N&V, also Anxiety Given RX for Ativan 0.5 mg x 7 days Che Cortes LPN documented in this encounter [facility] 11-26-[address] Poole called and spoke with patient. Judy Castillo RN [facility] Work Phone: 11-26-[address] Poole called and spoke with patient. Judy Castillo RN documented in this encounter [facility] 11-26-2024 Telephone encounter Note DISCHARGE CALL BACK Today's date: November 26, 2024 Notified of Pt discharge by: Carmen Patient discharged on 11/23/24 from [facility] to Home PATIENT LEFT AMA Primary Cancer Diagnosis: Colon Admitting Diagnosis: STEMI, [place] Discharge Summary/SBAR reviewed: Yes Handoff Discussed with Transitional Senior Counsel Commercial: N/A Psychosocial Risk Factors: Yes: Anxious/Depressed Mood Social Work notified: Yes If patient discharged to SNF/Rehab Facility, phone call completed to reinforce discharge instructions and follow up: N/A Call Disposition: Dr. Poole also called patient today. See other phone encounter from today. Called patient and spoke with patient Patient identified by name and date of . YES Patient with symptom issues: No Pain: No=0 (pain 0 on a scale of 0-10). Is patient followed by Palliative Medicine? No Palliative Medicine follow up: N/A Any new barriers to care identified? No Any new referrals needed? No Social Work Follow-Up visit scheduled? No, will send message to social media coordinator to follow up with patient. Does the patient need interventions no or same day appointment: No MEDICATION ADHERENCE Patient discharged with prescriptions? No, left AMA Rx for Valium and Lopressor today. Patient aware. Discharge prescriptions filled: N/A Patient understands when to take prescriptions: Yes FOLLOW UP Patient scheduled for follow-up appointment within 5 business days of discharge? Yes Patient reminded of follow-up appointment with [facility] provider, Dr. Poole on 11/29/24: Yes Discussed Needs follow up with cardiology. She would like to follow up with Dr. Deirdre Cochran at [facility]. Phone number given to call and make appointment. She is also requesting refill on Buspar or something else for depression. She hasn't taken this medication for 5-6mo and was originally prescribed by Sarah Richard. She will try the Valium as prescribed at this time and discuss option at next OV if she does not feel the Valium is working for her. She is also asking for refill on Olanzapine. Refill request sent. She denies further questions/concerns. PATIENT EDUCATION / REINFORCEMENT Patient verbalizes understanding of when to seek Medical Attention? YES Patient verbalizes understanding of after hours and weekend phone number? YES Kate Castillo RN [facility] 11-26-2024 Miscellaneous Notes DISCHARGE CALL BACK Today's date: November 26, 2024 Notified of Pt discharge by: Carmen Patient discharged on 11/23/24 from [facility] to Home PATIENT LEFT AMA Primary Cancer Diagnosis: Colon Admitting Diagnosis: STEMI, [place] Discharge Summary/SBAR reviewed: Yes Handoff Discussed with Transitional Senior Counsel Commercial: N/A Psychosocial Risk Factors: Yes: Anxious/Depressed Mood Social Work notified: Yes If patient discharged to SNF/Rehab Facility, phone call completed to reinforce discharge instructions and follow up: N/A Call Disposition: Dr. Poole also called patient today. See other phone encounter from today. Called patient and spoke with patient Patient identified by name and date of . YES Patient with symptom issues: No Pain: No=0 (pain 0 on a scale of 0-10). Is patient followed by Palliative Medicine? No Palliative Medicine follow up: N/A Any new barriers to care identified? No Any new referrals needed? No Social Work Follow-Up visit scheduled? No, will send message to social media coordinator to follow up with patient. Does the patient need interventions no or same day appointment: No MEDICATION ADHERENCE Patient discharged with prescriptions? No, left AMA Rx for Valium and Lopressor today. Patient aware. Discharge prescriptions filled: N/A Patient understands when to take prescriptions: Yes FOLLOW UP Patient scheduled for follow-up appointment within 5 business days of discharge? Yes Patient reminded of follow-up appointment with [facility] provider, Dr. Poole on 11/29/24: Yes Discussed Needs follow up with cardiology. She would like to follow up with Dr. Deirdre Cochran at [facility]. Phone number given to call and make appointment. She is also requesting refill on Buspar or something else for depression. She hasn't taken this medication for 5-6mo and was originally prescribed by Sarah Richard. She will try the Valium as prescribed at this time and discuss option at next OV if she does not feel the Valium is working for her. She is also asking for refill on Olanzapine. Refill request sent. She denies further questions/concerns. PATIENT EDUCATION / REINFORCEMENT Patient verbalizes understanding of when to seek Medical Attention? YES Patient verbalizes understanding of after hours and weekend phone number? YES Kate Castillo, RN documented in this encounter [facility] 11-26-2024 Telephone encounter Note Pts. Sister Bianka contacted office, informed that pt. Is having a mental crisis right now . States it's because her sister states she has no idea what the plan of care is going forward. Since hospitalization with cardiac issues, this has increased her anxiety tremendously. Family is in [facility], and pt. Currently is staying with a friend here in [place]. Sister would like to hear from Dr. Poole today and also would like to have physician contact pt. Medical POA is sister Jeanette [phone], Other sister is Bianka [phone] Per discharge summary: On review of cath and echo and [...] patient voiced understanding of these risks. Per staff pharmacist, patient left the unit at 2039 via wheelchair. Pt. Also presented to [facility] Emergency room yesterday with N&V, also Anxiety Given RX for Ativan 0.5 mg x 7 days Che Cortes LPN [facility] 11-25-2024 Discharge summary [facility] 11-25-2024 Discharge summary Note Date/Time November 25, 2024 7:17pm [facility] Medical Records Department [address] [place] [address] Emergency Department Summary 11/25/24 MR#: [id number] Acct: [id number] Name: LAKESHA KOCH ILENE Rep #:[id number] : 1960 64 From: Demarcus Gauthier MD PCP: Aubrey Lopez [facility] FABRICATION OPERATOR-C Status:REG ER Location: ED HPI HPI - GI History of Present Illness Chief Complaint: Nausea/Vomiting Informant: patient and spouse/S.O. Nausea/Vomiting/Emesis GI Symptom: Positive for Nausea; Negative for Vomiting Onset: Today Severity: Mild Diarrhea/Melena/Hematochezia GI Symptom: Negative for Diarrhea, Melena or Hematochezia Associated Symptoms Associated Symptoms: Negative for Dysuria, Frequency, Hematuria or Urgency Narrative Narrative: 64-year-old female history of colon cancer with recurrence she has had surgery for that partial colon resection and appendectomy. Still has her gallbladder. Currently she is diagnosed with stage IV colon cancer with mets to the liver andshe is on chemotherapy. Recently she was hospitalized and during I believe the emergency department evaluation she coded and was transferred for [facility] There she was stable and was hospitalized for several days just discharged they believe this past Monday. Says she feels dehydrated. She is able to drink normal things down. She has nausea but no vomiting. No diarrhea or constipation no dysuria or fever she denies any abdominal pain. I think she wasjust concerned and came in today due to if she was taken she was getting dehydrated. She is currently undergoing chemotherapy with Dr. Poole from [facility]. Prior similar symptoms: Yes Recent Illness/Hospitalization: Yes PFSH PFSH Medical History Restless legs Cancer [...] days 09/12/24 Unknown Rx tablet #90 tabs lorazepam 0.5 mg tablet (Ativan) 0.5 mg PO BID PRN anx iety 7 days 11/25/24 Unknown Rx #10 tabs Allergy/AdvReac Type Severity Reaction Status Date / Time erythromycin base Allergy TONGUE Verified 11/25/24 16:21 ABENAELS Family History Sister Melanoma Father Prostate CA [...] type: marijuana ROS ROS ED ROS Narrative Nausea. Denies abdominal pain. Denies vomiting or diarrhea. Denies fever or dysuria. Constitutional Constitutional ED: Denies chills or fever(s) ENT ENT ED: Denies ear pain Cardiovascular Cardiovascular: Denies chest pain or palpitations Respiratory/Chest Respiratory/Chest: Denies cough or dyspnea Gastrointestinal Gastrointestinal: Reports nausea; Denies abdominal pain, constipation, diarrhea,melena or vomiting Genitourinary Genitourinary ED: Denies dysuria or hematuria Musculoskeletal Musculoskeletal: Denies arthralgias or back pain Integumentary Denies abscess Neurologic Neurologic: Denies headache(s) Psychiatric Psychiatric: Denies anxiety or depression Endocrine Endocrinology: Denies polydipsia or polyphagia Hematologic/Lymphatic Hematologic/Lymphatic: Denies easy bleeding, easy bruising or lymphadenopathy Allergic/Immunologic Allergic/Immunologic ED: Denies mouth swelling, tongue swelling or urticaria EXAM Physical Exam Narrative Exam Narrative: 64-year-old female sitting upright in bed. Vital signs are stable blood pressure 99/79 but she is a small woman weighs around 100 pounds. She does not look septic or toxic. is at bedside. She is in no distress she is emotionally upset at times tearful talking about her history of the recurrent colon cancer with liver mets. H EENT exam pupils round reactive light. Moist mutes membranes. Neck nontender no JVD. Lungs clear to auscultation bilaterally. Heart regular rhythm rate about 110 no murmur. Chest wall mild tenderness. She recently had CPR and may have fractured ribs. But there is no subcu air or crepitance. Abdomen soft, nontender, nondistended normal bowel sounds. No peritoneal signs. No obstruction or distention. Moving all 4 extremities. Nontender no edema. Normal range of motion. Back nontender. Neurologically she is awake alert. Answering questions following commands. Const Vital Signs: 11/25/24 16:21 11/25/24 19:12 Temperature 98.8 F 98.4 F Temperature Source Oral Pulse Rate 114 H 74 Respiratory Rate 16 16 Blood Pressure 99/79 118/66 Blood Pressure Mean 85 83 Pulse Ox 97 99 Oxygen Delivery Method Room Air Positive well nourished and well developed; Negative for obese, cachectic, contractures or unkempt General Appearance ED: well developed and NAD; Negative for unkempt, cachectic, contractures or pallor Nutritional Appearance: Negative for cachectic or obese HEENT Reports moist mucous membranes normocephalic and atraumatic Eyes PERRL and EOMs intact bilaterally General Eye ED: Negative for pale conjunctiva or scleral icterus Neck no lymphadenopathy, supple and no JVD General: Negative for tenderness Resp normal respiratory effort and clear to auscultation bilaterally Effort and Inspection: Negative for respiratory distress Auscultation: Negative for rales, rhonchi, wheezes or diminished lung sounds Cardio regular rhythm, S1 normal heart sound, S2 normal heart sound and no murmurs; Negative for regular rate Rate: tachycardic GI non-tender and non-distended Auscultation: normoactive bowel sounds Palpation: soft; Negative for tender, guarding, hepatomegaly, splenomegaly, hernia, mass, pulsatile mass or rebound tenderness present Back/Spine no CVA tenderness General Back: Negative for CVA tenderness Cervical Spine: Negative for cervical spine tenderness Thoracic Spine / Upper Back: Negative for thoracic spinal tenderness Lumbar Spine / Lower Back: Negative for lumbar spinal tenderness Extremity full ROM General Extremety ED: Negative for edema or tenderness General Extremity: Negative for edema Neuro CN's II-XII intact bilaterally and moves all extremities Sensorium / Orientation: alert, oriented to person, oriented to place and oriented to time Motor Exam: strength 5/5 throughout Psych mental status grossly normal and thought process normal Appearance: Negative for unkempt Skin no wounds General Skin Exam: Negative for jaundice or pallor Lesions: no lesions Rashes: no rashes MDM MDM MDM Narrative Medical decision making narrative: 64-year-old female concerned she may be dehydrated will be treated with IV fluids. Screening labs will be obtained. She is having no abdominal pain thereis no signs of obstruction either I do not think she needs imaging at this time. Currently she is not nauseated will not be given Zofran. Repeat exam patient is doing well at 7 PM. A lengthy discussion with both her,her and I believe 2 sisters on the phone that are out of town. All are comfortable with her being discharged to home. Medically she stable. She is having emotional problems and depression after her cancer diagnoses. I will have our social media coordinator follow-up with the family tomorrow. She may have family coming from out of town. She and her are comfortable being discharged to home. She does not need inpatient psychiatric admission. She is not suicidal. History & Record Review Discussion w/independent historian: Patient and Family Additional record(s) reviewed:: Prior inpatient record, Prior outpatient record,Prior ED visit and Prior labs Lab Data Attestation: I reviewed the patient's lab results. Lab results narrative: CBC shows a white count of 4 H&H 9.7 and 20.4. Platelets 220. Electrolytes show a sodium 134 potassium 3.2. Gap 14. BUN/creatinine is seventeen 0.6. Glucose 148. Liver enzymes normal. Lipase normal at 62. Urinalysis negative. No white or red cells. No nitrites. Only 1+ bacteria. Labs: Laboratory Results - last 24 hr 11/25/24 11/25/24 16:59 18:04 WBC 4.8 RBC 3.25 L Hgb 9.7 L Hct 28.4 L MCV 87.4 MCH 29.8 MCHC 34.2 RDW Std Deviation 42.5 RDW Coeff of Yury 13.2 Plt Count 220 MPV 9.6 Immature Gran % (Auto) 0.600 Neut % (Auto) 64.4 Lymph % (Auto) 19.4 [place] % (Auto) 12.7 H Eos % (Auto) 2.1 Baso % (Auto) 0.8 Absolute Neuts (auto) 3.1 Absolute Lymphs (auto) 0.93 Nucleated RBC % 0 Platelet Estimate ADEQUATE Hypochromasia 1+ Anisocytosis 1+ Sodium 134 Potassium 3.2 L Chloride 96 L Carbon Dioxide 23.7 Anion Gap 14 BUN 17 Creatinine 0.62 L Estim Creat Clear Calc 43.17 L Est GFR (MDRD) Non-Af 99 BUN/Creatinine Ratio 26.8 H Glucose 148 H Calcium 8.7 Total Bilirubin 0.39 AST 20 ALT 10 Alkaline Phosphatase 58 Total Protein 6.7 Albumin 3.6 Globulin 3.1 Albumin/Globulin Ratio 1.2 Lipase 62 Urine Color Yellow Urine Clarity Clear Urine pH 6.0 Ur Specific [place] 1.015 Urine Protein 30 H Urine Glucose (UA) Normal Urine Ketones Negative Urine Occult Blood Negative Urine Nitrite Negative Urine Bilirubin Negative Urine Urobilinogen Normal Ur Leukocyte Esterase Negative Urine RBC 0 SEEN Urine WBC 0 SEEN Ur Squamous Epith Cells 0-5 SEEN Urine Bacteria 1+ Urine Mucus 1+ Discharge Plan Triage Chief Complaint: Nausea/Vomiting Other Complaint: Anxiety ED Provider: Demarucs Gauthier Dx/Rx/DC Orders Clinical Impression: Nausea, Metastatic colon cancer to liver, Depression, History of cancer chemotherapy Instructions: ED Vomiting (Adult) Prescriptions: New lorazepam [Ativan] 0.5 mg tablet 0.5 mg PO BID PRN (Reason: anxiety) 7 Days Qty: 10 0RF No Action sertraline 50 mg tablet 50 [...] 0RF Primary Care Provider: Aubrey Lopez Referrals: Jimmie Poole MD [Med Staff - Active Staff] - As soon as possible Aubrey Lopez, FABRICATION OPERATOR-C [Primary Care Provider] - Activity Restrictions/Additional Instructions: Plenty of fluids and rest. Increase your diet slowly as tolerated. Zofran as needed for nausea. I wrote you Ativan half a milligram as needed for anxiety. Call and follow-up with our social media coordinator tomorrow. I will give them your name and hopefully they contact you in the morning. If the Return if you are feeling worse. Print Language: Kenyan Disposition Disposition: Home, Self Care What to do if you have Problems For any increased pain, shortness of breath, bleeding, nausea or vomiting, chestpain, or any unexpected problems, contact your Primary Care Provider. Call [facility] ([phone]) or report to the closest Emergency Room. Call 911 if necessary. 11/25/241916 <Electronically signed by Demarcus Gauthier MD> Cosigner Signature (if applicable): CC: Aubrey CURIEL FABRICATION OPERATOR-C Jessica ~ Signed [facility] Work Phone: 1(572) 968-995109-01-2025 Hospital Discharge instructionsAdditional Instructions Plenty of fluids and rest. Increase your diet slowly as tolerated. Zofran as needed for nausea. I wrote you Ativan half a milligram as needed for anxiety. Call and follow-up with our social media coordinator tomorrow. I will give them your name and hopefully they contact you in the morning. If the Return if you are feeling worse.[facility] Work Phone: 1(326) 605-585608-30-2025 NoteHNO ID: [id number] Author: PATEL GANDARA MD Service: Hospital Medicine Author Type: Physician Type: Progress Notes Filed: 11/23/2024 09:35 Note Text: DEPARTMENT OF HOSPITAL MEDICINE CONSULT PROGRESS NOTE SERVICE DATE: 11/23/2024 SERVICE TIME: 9:15 AM Primary Care Physician: Christie Sánchez NP NIGHT AND WEEKEND COVERAGE: [place] COVERAGE: After 7pm, please call cross cover pager #[phone] Subjective INTERVAL HPI: Patient transferred out of [...] reported STEMI and reported Vfib arrest at [facility], with initial complaint of chest pain. Recently [...] cardiogenic shock and sent to CVICU at [facility]. Taken immediately to [facility] with LHC and RHC performed which revealed [...] status post ACLS with reported ST elevation KY at outside hospital after being started on new chemotherapy (fluorouracil + oxaliplatin) on 11/19/24. Potassium 2.6 prior to infusion, replaced with 40mEq IV potassium on 11/19). Left heart catheterization on 11/21/2024 with normal left main, LAD, left circumflex, RCA. TTE on 11/21/2024 with mild LV dilatation (more content not included)...[facility]08-29-2025 NoteHNO ID: [id number] Author: ?, ?, ? Service: Pharmacy Author Type: Piping Supervisor Type: Plan of Care Filed: 11/22/2024 11:58 Note Text: PHARMACY MEDICATION REVIEW Patient Name: Lakesha Koch : 1960 The following medications were updated within the VENT[employer]ATION [employer]CHAN[employer] medication list: Medications ADDED to [facility] [facility] medication list HYDROmorphone 2 mg tablet Take 2 mg by mouth two times a day as needed for pain. Medications CHANGED on [facility]CH[employer] medication list Medications REMOVED from [facility] medication list acetaminophen (TYLENOL EXTRA STRENGTH) 500 [...] medication history: Yes Medication history completed by: Piping Supervisor: Gricel Child (Bread Baker) Source of history: Patient: Reliability of source: Appears reliable, clearly identified: Medication name, Medication dose, Medication route, and Medication frequency, Pharmacy records: e-scripts/dispense report, and [facility] records Medication nonadherence identified: No barriers noted Reconciliation completed: No, pharmacist not yet reviewed Patient interested in Bedside Delivery Services or using OP Pharmacy at discharge? Unable to assess Preferred outpatient pharmacy: e- [facility] [address] [place] [id number] [address] [facility] [phone] Allergies: Erythromycin Intolerance Comment:Mouth soreness and peeling. [...] once daily. Facility-Administered Medications: None Gricel Child (Bread Baker)[phone] [facility] NoteHNO ID: [id number] Author: GEO CARTER RN Service: Care Management [...] Koch DATE: November 22, 2024 TIME: 11:41 [facility]08-29-2025 NoteHNO ID: [id number] Author: CARLOS COCHRAN MD Service: Cardiovascular Medicine Author Type: Physician Type: Progress Notes Filed: 12/12/2024 15:21 Note Text: CARDIOVASCULAR MEDICINE PROGRESS NOTE HPI Patient is a 64 year old year old female with past medical history of iron deficiency anemia, epilepsy, adenocarcinoma of the colon, and anorexia who is currently admitted under CVICU service for further workup of reported STEMI and reported Vfib arrest. Per chart review from [facility], patient arrived at the ED and complained [...] She was responsive therefore held off intubation. line o scribe operator after this showed transient atrial fibrillation with apparent blood pressure dropping into the 70s systolic. Cardio genic shock was suspected and dopamine drip was ordered. Packing Machine Pilot Can Router also recommended 180 mg of Brilinta, heparin drip was started at outside hospital. Lowest documented blood pressure at the outside hospital was 79/49. No EKG or telemetry strips were provided by outside hospital. In the ED patient received 500 cc LVB, K 40mEq, aspirin, brilinta, nitro drip, fentanyl once, dopamine, and heparin drip. Patient was taken immediately to [facility] where LHC and RHC were done. Interval Events Yesterday, infectious workup including sed rate, CRP, lactate, blood cultures, and urinalysis were sent to evaluate for causes of hypotension and tachycardia. Lactate resulted as normal at 1.4, CRP mildly elevated at 2.6, WSR normal at 16, and UA remarkable only for hyaline casts- no bacteria or WBC. She was given a one time test dose of Metoprolol tartrate to bring down her heart rate. Heart rate remained in the 90's-100's. The metoprolol did not significantly impact patient's blood pressure. Patient states today she feels like she is back to her baseline. She denies chest pain, shortness of breath, palpitations, headache, dizziness. She would like to be discharged today. Current cardiovascular interventions - Metoprolol 12.5 mg BID Last heart cath Date: 11/21/24 Findings: - [...] effusions adjacent to RV and LV OBJECTIVE EKG 11/21: Sinus tachycardia at 114 bpm Pertinent labs - Troponin: 132 -- 107 (11/21) Physical exam Physical Exam Vitals reviewed. Constitutional: General: She is not in acute distress. Appearance: She is cachectic. HENT: Head: Normocephalic and atraumatic. Mouth/Throat: Mouth: Mucous membranes are dry. (more content not included)...[facility]08-28-2025 [facility]-28-[facility] History of Present illness Narrative* Tessa Spring MD - 11/21/2024 4:52 PM EDT Images from the original note were not included. Established Patient Visit REASON FOR VISIT Follow up I have communicated my name and active licensure. The patient's identity and physical location wereverified at the time of this visit. Either the patient or their legal public utilities sales representative has been informed of the risks [...] pelvic mass on 08/28/2024. She recently had aCT of the abdomen that revealed diffuse bilobar hepatic metastasis and was started on chemotherapy FOLFOX. However, during the recent infusion she had cardiac complications with A-fib and RVR requiring emergent admission to [facility] Where she was resuscitated and put on beta-blockers. The pumpwas disconnected and the patient has been stabilized. [...] D5W 5-10 mcg/kg/min (Order-Specific) INTRAVENOUS CONTINUOUS Saadia Gonzales, LETI.AQUATIC CENTRE MANAGER oxyCODONE IR 5 mg tab(s) (ROXICODONE) 5 mg ORAL q 6 H PRN Noreen Akins, DO 5 mg at 11/21/24 1056 dextrose 15 gram/32 mL 15 g (TRUEPLUS) 15 g ORAL PRN Noreen Akins, DO Or glucagon 1 mg injection 1 mg INTRAMUSCULAR PRN Noreen Akins DO Or dextrose 10% iv bolus 12.5 g INTRAVENOUS PRN Noreen Akins, DO insulin lispro injection (rapid acting) (ADMElog) SUBCUTANEOUS w MEALS Noreen Akins, DO CURRENT ALLERGIES ALLERGIES Allergen Reactions Erythromycin [...] requiring medication, no history of angina, CHF, KY, cardiac surgery or stents. Denies rest pain, [...] is aware and started her on IV FOLFOXbut unfortunately she developed severe adverse events and [...] Level: 5 - High Tessa Spring MD [facility] November 21, 2024 [...] use: Not Currently Types: Marijuana Comment: unknown * Rema Beltre RN - 11/21/2024 4:15 PM EDT Images from the original note were not included. New/Est pt: established patient Reason for apt: discuss recent CT 11/07/24: CT abd/pelvis documented in this encounterHol[facility]08-28-[facility]25 NoteHNO ID: [id number] Author: REMA BELTRE, REAL Service: ? Author Type: Registered Nurse Type: Progress Notes Filed: 11/21/2024 17:02 Note Text: New/Est pt: established patient Reason for apt: discuss recent CT 11/07/24: CT abd/[facility]visMi[facility]08-28-2025 NoteHNO ID: [id number] Author: GEO CARTER RN Service: Care Management Author Type: Registered Nurse Type: Care Mgt Initial Assessment Filed: 11/21/2024 12:40 Note Text: CARE MANAGEMENT: ASSESSMENT AND DISCHARGE PLAN SERVICE DATE: November 21, 2024 SERVICE TIME: 12:38 PM PCP: Christie Sánchez NP Primary Contact: Extended Emergency Contact Information Primary Emergency Contact: Jeanette Garvin (HCPOA) [facility] Mobile Relation: Sister Secondary Emergency Contact: Brittney Koch (1st alt. HCPOA) Mobile Relation: Sister Admission Status: Inpatient Insurance Provider: MEDICARE A AND B Discharge Planning requested by: Per Department Practice Potential Transition Plans To Be Determined Advance Directives Current Advance Directive: Health Care Power of Hot Roll Laminator In Chart: Yes Up To Date and [...] DME, Other: See Comment ([facility]pt chemo [facility]) Current DME Type: Cane Discharge Planning Patient Goal(s): General wellness, Be able to go home Harmony of Choice Explained: Harmony of Choice Given: No Reason Not Given: [...] and uses cane as needed. @chemo at [place] and has port. No prior home care. PCP confirmed and has script coverage through Medicare D and uses [facility] in [place]. Dc plan to return home. Cm to follow for needs. SIGNATURE: Geo Carter RN PATIENT NAME: Lakesha Koch DATE: November 21, 2024 TIME: 12:38 [facility]08-28-2025 Telephone encounter Note* Telephone Encounter - Kate Castillo RN - 11/21/2024 11:47 AM EDT Thank you. Dr. Poole aware. Will follow for discharge. Judy Castillo RN [facility] Work Phone: 1(744) 606-806508-28-2025 Miscellaneous Notes* Telephone Encounter - Kate Castillo RN - 11/21/2024 11:47 AM EDT Thank you. Dr. Poole aware. Will follow for discharge. Judy Castillo RN * Telephone Encounter - Fang Myers - 11/21/2024 10:57 AM EDT Patient called to inform that she has been admitted to [facility] for Chest pain and will not bein for DC Cadd today. Appointment canceled. documented in this encounterHolmes County [facility]08-28-2025 Telephone encounter Note * Telephone Encounter - Fang Myers - 11/21/2024 10:57 AM EDT Patient called to inform that she has been admitted to [facility] for Chest pain and will not bein for DC Cadd today. Appointment canceled. [facility] Work Phone: 1([phone]) 584-836608-28-2025 NoteHNO ID: [id number] Author: CARLOS COCHRAN MD Service: Cardiovascular Medicine Author Type: Physician [...] reported Vfib arrest. Per chart review from [facility], patient arrived at the ED and complained [...] She was responsive therefore held off intubation. line o scribe operator after this showed transient atrial fibrillation with apparent blood pressure dropping into the 70s systolic. Cardio genic shock was suspected and dopamine drip was ordered. Packing Machine Pilot Can Router also recommended 180 mg of Brilinta, heparin drip was started at outside hospital. Lowest documented blood pressure at the outside hospital was 79/49. No EKG or telemetry strips were provided by outside hospital. In the ED patient received 500 cc LVB, K 40mEq, aspirin, brilinta, nitro drip, fentanyl once, dopamine, and heparin drip. Patient was taken immediately to [facility] where LHC and RHC were done. Interval [...] lower leg: No ed (more content not included)...[facility]08-28-2025 NoteMiami [facility]08-28-2025 History of Present illness Narrative* Saadia Gonzales APRN.AQUATIC CENTRE MANAGER - 11/21/2024 4:13 AM EDT Images from the original note were not included. Critical Care Transport Note Patient Name: Lakesha Koch Service Date: 11/21/2024 Referring Physician: Evy Accepting Physician: [place] Referring Facility: [facility] Accepting Facility: [facility] SUBJECTIVE/CHIEF COMPLAINT: chest pain REASON FOR TRANSPORT: [...] malnutrition/FTT, epilepsy, and depression. She presented to [place] ER on 11/21/2024 for evaluation of chest [...] which was negative for PE. Several hours later,pain returned with further EKG changes. Cardiology reviewed new EKG at that time and agreed to proceed with [facility]. Before this was able to be done, patient went into vfib arrest. She was shocked x 2, given amiodarone 150 mg and Epi x 1 before ROSC achieved. She was hypotensive post arrest and startedon dopamine due to concerns for cardiogenic shock. Patient awake and protecting airway post arrest. Cardiology re-evaluated patient again and decided to transfer her to [facility] for cath due to possibility of needing circulatory support device. Patient currently c/o only slight chest pain and nausea. She denies Shortness of Breath or abdominal pain. At this time, the physician managing the patient requested transfer to [facility] for tertiary and/or quaternary services unavailable at the referring facility. Patient condition at time of exam was: Acutely ill and critically ill. Due to the unique circumstances of the patient, it was d etermined that this was the closest, most appropriate facility by referring physician. The physician managing the patient requested the [facility] Critical Care Transport Team transport and treat the patient for the purpose of tertiary care, evaluation, and management of her cardiovascular condition(s). Air medical transport was requested to reduce the wkk-cu-guqgzoij time, 20 minutes by air vs. approximately [...] as needed for anxiety for up to10 days.^Disp: 20 tablet^Rfl: 0 prochlorperazine (COMPAZINE) 10 mg tablet^Take 1 tablet by mouth every 6 hours as needed for nausea/vomiting.^Disp: 30 tablet^Rfl: 2 OLANZapine (ZYPREXA) 10 mg tablet^Take 1 tablet by mouth daily at bedtime.^Disp: 90 tablet^Rfl: 0 methocarbamol (ROBAXIN) 500 mg tablet^Take 1 tablet by mouth two times a day as needed (spasm/pain)for up to 28 days.^Disp: 56 tablet^Rfl: 0 [...] no calf tenderness, normal ROM, no joint swelling,no bony tenderness, no deformities, equal palpable peripheral [...] patient was placed on the transport monitor andall transport equipment transitioned in standard fashion. The [...] - Heparin gtt d/c'd in preparation for dental laboratory technician - Episode of Vfib arrest, ROSC achieved after shocks x 2, epi x 1 and amiodarone bolus - No further ectopy noted - Amiodarone gtt continued - Patient with minimal chest pain - BP trended down during transport requiring increase in dopamine gtt - Positive nausea, given zofran by ED upon CCT arrival - Given Potassium chloride by ED - Expedited transport to [facility] for further cardiac evaluation The transport was completed without significant incident or change in the patient's status. The patient was transported to the [facility] by [employer] (Helicopter) for tertiary and/or quaternary evaluation and management of her Emergent cardiovascular condition(s). Upon arrival to the receiving facility, a vybj-tv-olbf report was given to bedside nursing staff tommy rodriguez and Dr. Niño. Patient care was transferred. [...] minutes of critical care time exclusive of separatelybillable procedures, ambulance charges and treating other patients. This was necessary to treat or prevent further deterioration of the following condition(s): Acute [place], Hemodynamic compromise, and Arrythmia Cardiovascular impairment, Respiratory impairment, CANDY DIPPER HAND impairment, Shock, and Cardiac Arrest which the patient had and/or had a high probability of suddenly developing. SIGNATURE: Saadia Gonzales APRN.AQUATIC CENTRE MANAGER Acute Care Nurse Practitioner [facility] Critical Care Transport Team [1] Social [...] Types: Marijuana Comment: unknown documented in this encounterHolmes County [facility]08-28-2025 Discharge summary [facility] Medical Records Department [address] [place] [address] Emergency Department Summary 11/20/24 MR#: [id number] Acct: [id number] Name: LAKESHA KOCH Rep #:[id number] : 1960 64 From: Kavin Birch PCP: Aubrey Lopez [facility] FABRICATION OPERATOR-C Status:REG ER Location: ED HPI History of [...] discomfort across her chest up to 8 outof 10. No dyspnea no nausea no radicular symptoms no diaphoresis. States symptoms came back at 1 PMand then again at 5 PM. Symptoms totally [...] for Hypertension, Diabetes, Hypercholesterolemia, Family History 1' PE Risk Factors: Positive for Cancer; Negative [...] Delivery Method Non-Rebreather Oxygen Flow Rate (L/min) 11/21/24 00:25 11/21/24 00:30 11/21/24 00:35 Temperature [...] there is no depressions. She is currently symptom- free. With no active symptoms, Dr. Perezid not feel cath is necessaryat this time. Recommended cardiac workup. treatment for ACS. She was given aspirin by EMS will start heparin drip. Will keep her n.p.o. If any worsening symptoms he willbe recontacted for cardiac cath sooner otherwise plan [...] shock I ordered for dopamine drip. 0005: Packing Machine Pilot Can Router Dr. Nichols is in the department evaluating the patient. Brilinta 180 mg recommended and ordered. Heparin drip is running at this time. 0030: I did perform bedside ultrasound reviewed with parks recreation coordinator, concerns for apical hypokinesis.Currently on dopamine drip pressure 84 systolic. He [...] Interventional cardiac Dr. Nichols did speak with [facility] with interventialist there Dr. Niño, discussed patient's history concerns. Patient accepted to their facility. [facility] at this time. Heparindrip running, dobutamine drip running. Amio drip running. Awaiting t [place]. Delta troponin even after chest compressions and cardioversion decreased to 82. Re-evaluation: Critical Disposition discussed with patient/family/significant other: Patient Case discussed with consulting clinician: Interventional cardiology, hospitalist, [facility] with cardiology This note was generated with [employer] dictation software. It may contain incorrectwords, spelling, [...] % (Auto) 60.3 Lymph % (Auto) 30.9 [place] % (Auto) 5.7 Eos % (Auto) 1.9 [...] IMPRESSION: No acute cardiopulmonary abnormality. Reading Location: [id number] Chest CTA 11/20/24 23:10 IMPRESSION: No evidence of pulmonary embolism or aortic dissection. Right upper lobe nodule. Follow-up in [address] scan would be helpful for further evaluation. 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 Call [facility] ([phone]) or report tothe closest Emergency Room. Call 911 if necessary. 11/21/24 013 Cosigner Signature (if applicable): CC: Aubrey CURIEL FABRICATION OPERATORNeptali Lopez ~ Signed [facility]08-28-2025 Radiology Diagnostic study note [facility] Imaging Services [address] [place], [place] [id number] CTA Chest W/WO Contrast MR#: [id number] Acct: [id number] Name: LAKESHA KOCH Rep #: [id number] : 1960 F 64 From: Ramón Cedeno MD PCP: Aubrey Lopez FABRICATION OPERATOR-C Status: REG ER Study:CTA Chest W/WO Contrast Date of Exam: 11/20/24 Exam# [id number] Ordering Dr: Kavin Adams DO PROCEDURE: CTA [...] be helpful for further evaluation. Reading [facility] CC: Dr. Kavin Adams DO; Aubrey CURIEL FABRICATION OPERATOR-C Jessica ~ Tmd Teacher Assistant: Signed [facility]08-27-2025 Radiology Diagnostic study note [facility] Imaging Services [address] [place] [address] Chest 1 View (Portable) MR#: [id number] Acct: [id number] Name: LAKESHA KOCH Rep #: [id number] : 1960 F 64 From: Alex Montero MD PCP: Aubrey Lopez FABRICATION OPERATOR-C Status: REG ER Study:Chest 1 View (Portable) Date of Exam: 11/20/24 Exam# [id number] Ordering Dr: Kavin Adams DO PROCEDURE: CHEST 1 VIEW (PORTABLE) 11/20/2024 REASON FOR EXAM: CHEST PAIN TECHNIQUE: Frontal view of the chest. COMPARISON: 08/31/2023. FINDINGS: The heart is normal in size. The lungs are clear. The lungs are clear. Right chest infusion port. Left shoulder arthroplasty. RAD/Chest 1 View (Portable) IMPRESSION: No acute cardiopulmonary abnormality. Reading Location: [facility] CC: Dr. 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 No Spoke to patient who indicates the reasons for consult are Adenocarcinoma of cecum Family member present no . Confirmed virtual process yes. Firearm & pet policy reviewed? yes. 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 No Spoke to patient who indicates the reasons for consult are Adenocarcinoma of cecum Family member present no . Confirmed virtual process yes. Firearm & pet policy reviewed? yes. Visit confirmed for 11/21/2024 in the am block Cecilio Leigh documented in this encounterHolmes [facility]08-[facility] Discharge summary Author Kavin Adams [facility] Note Date/Time November 21, 2024 1: 39am [facility] Medical Records Department [address] [place] [address] Emergency Department Summary 11/20/24 MR#: [id number] Acct: [id number] Name: LAKESHA KOCH Rep #:[id number] : 1960 64 From: Kavin Birch PCP: Aubrey Lopez FABRICATION OPERATOR-C Status:REG ER Location: ED HPI History of [...] there is no depressions. She is currently symptom- free. With no active symptoms, Dr. Nichols did [...] shock I ordered for dopamine drip. 0005: Packing Machine Pilot Can Router Dr. Nichols is in the department evaluating the patient. Brilinta 180 mg recommended and ordered. Heparin drip is running at this time. 0030: I did perform bedside ultrasound reviewed with parks recreation coordinator, concerns for apical hypokinesis. Currently on dopamine [...] Interventional cardiac Dr. Nichols did speak with [facility] with interventialist there Dr. Niño, discussed patient's history concerns. Patient accepted to their facility. Arranging [facility] at this time. Heparindrip running, dobutamine drip running. Amio drip running. Awaiting transport. Delta troponin even after chest compressions and cardioversion decreased to 82. Re-evaluation: Critical Disposition discussed with patient/family/significant other: Patient Case discussed with consulting clinician: Interventional cardiology, hospitalist, [place] [facility] with cardiology This note was generated with [employer] dictation software. It may contain incorrectwords, spelling, [...] % (Auto) 60.3 Lymph % (Auto) 30.9 [place] % (Auto) 5.7 Eos % (Auto) 1.9 [...] IMPRESSION: No acute cardiopulmonary abnormality. Reading Location: [facility] Chest CTA 11/20/24 23:10 IMPRESSION: No evidence of pulmonary embolism or aortic dissection. Right upper lobe nodule. Follow-up in [address] scan would be helpful for further evaluation. Reading Location: [place] [address] Critical Care Time Critical Care Time: Yes Critical care time (excluding procedures): 30-74 minutes, Discussing w/Patient &/or Family/Global President, Discussing w/Consultants, Arranging Admission or Transfer, Performing [...] Care Provider: Aubrey Lopez Referrals: Aubrey Lopez, FABRICATION OPERATOR-C [Primary Care Provider] - Print Language: Kenyan Disposition Disposition: DC/Tx to Another Type of HCF What to do if you have Problems For any increased pain, shortness of breath, bleeding, nausea or vomiting, chestpain, or any unexpected problems, contact your Primary Care Provider. Call [facility] ([phone]) or report to the closest Emergency Room. Call 911 if necessary. 11/21/24 0139 <Electronically signed by Kavin Birch> Cosigner Signature (if applicable): CC: Aubrey CURIEL FABRICATION OPERATOR-C Jessica ~ Signed [facility] Work Phone: [phone]) 591-771808-27-2025 Telephone encounter Note* Telephone Encounter - Kate [...] in with any needs/concerns. Judy Castillo RN [facility] Work Phone: 1(342) 381-509108-27-2025 Miscellaneous Notes* Telephone Encounter - Kate Castillo [...] PM EDT Care Coordination Triage Note Cancer [place] Situation: Patient reports Other Chest pain vs. [...] Castillo RN - 11/20/2024 12:04 PM EDT [facility] FOLLOW-UP NOTE Patient identified by [...] RN November 20, 2024 documented in this encounterHolmes County [facility]08-27-2025 Telephone encounter Note * Telephone Encounter - Kate Castillo RN - 11/20/2024 1:37 PM EDT Care Coordination Triage Note Cancer [place] Situation: Patient reports Other Chest pain vs. [...] Castillo RN November 20, 2024 1:37 PM [facility]08-27-2025 Telephone encounter Note* Telephone Encounter - [...] further follow up needed at this time Ktae Castillo RN November 20, 2024 [facility]08-26-2025 Discharge summary Author Pb Wright [facility] Note Date/Time November 19, 2024 1: 06pm [facility] Physical Therapy [facility] [address] [place] [address] / REHABILITATION SERVICES DISCHARGE SUMMARY MR#: [id number] Acct: [id number] Name: LAKESHA KOCH Rep #: [id number] : 1960 64 From: Pb Wright PT, ATC Referring Dr.: Aubrey KIRBY Beam Status: REG RCR Insurance: MEDICARE PART [...] <Electronically signed by Pb Wright PT, ATC> 11/19/24 1306 CC: Aubrey Lopez ~ [facility] Signed [facility] Work Phone: 1(453) 942-340508-26-2025 NoteHNO ID: [id number] Author: BRITTANY CARMICHAEL RN Service: ? Author Type: Registered Nurse Type: Progress Notes Filed: 11/19/2024 14:06 Note Text: Dr Poole updated on CMP and potassium. Orders placed for IV replacement. Brittany Carmichael [facility]08-[facility] History of Present illness Narrative* Brittany Carmichael RN - 11/19/2024 1:[address] Poole updated on CMP and potassium. Orders placed for IV replacement. Brittany Carmichael RN documented in this encounterHolmes County [facility]08-26-2025 Discharge summary [facility] Physical Therapy [address] [place] [address] / REHABILITATION SERVICES DISCHARGE SUMMARY MR#: [id number] Acct: [id number] Name: LAKESHA KOCH Rep #: [id number] : 1960 64 From: Pb Wright PT, ATC Referring DrSilvestre: Aubrey Lopez Status: REG RCR Insurance: MEDICARE PART A [...] Functional Score: 31 11/19/24 1306 CC: Aubrey [facility] FABRICATION OPERATOR-C Beam ~ [facility] Signed [facility]08-25-2025 Telephone encounter Note* Telephone Encounter - [...] for transportation as well as financial assistance. DOM provided a resource packet with transportation providers and numbers. DOM discussed a referral to financial navigation regarding co-pay assistance and Medicare reimbursement. Pt and sister in agreement to DOM making referral this date, DOM will send referral to financial navigation via email. Pt's sister/POA inquired about copies ofpt's POA forms, SW printed and gave POA copies this date. Pastora reports she lives out of state and will be returning to her home later this week but is looking into receiving intermittent leave from her employer to utilize as needed to assist in caring for pt. DOM answered all questions as able thisdate. No other needs identified at this time. Advance Care Planning Pt has Advanced Directives completed, listing Jeanette Garvin (PH: [phone]) as primary agent and does not wish to make any changes at this time. PLAN: Continue follow up as needed , Provide emotional support to patient/family, and Referral to community resource F/U APPOINTMENT: JACKELYN Assigned DOM listed in Care Team tab: Yes ANG Peterson [facility]08-25-2025 Miscellaneous Notes* Telephone Encounter - Amber [...] Advanced Directives completed, listing Jeanette Garvin (PH: [phone]) as primary agent and does not wish to make any changes at this time. PLAN: Continue follow up as needed , Provide emotional support to patient/family, and Referral to community resource F/U APPOINTMENT: PRN Assigned DOM listed in Care Team tab: Yes Amber Heller, ENTERPRISE SERVICES MANAGER-S documented in this encounterHolmes County [facility]08-25-2025 [facility]Miami [facility]08-25-2025 History of Present illness Narrative* Jimmie [...] 09-25-24 follow up, post debulking. CT at [place] September 13, 2024 looks ok, report being [...] which included preparing to see the patient, [id number] patient care, completing clinical documentation, obtaining and/or reviewing separately obtained history, counseling and educating the patient/family/caregiver, ordering medications, arron ts, or procedures, communicating with other HCPs (not separately reported), independently interpreting results (not separately reported), communicating results to the patient/family/caregiver, and care coordination (not separately reported). And review of NCCN guidelines Electronically Signed: Jimmie Poole MD November 18, 2024 documented in this encounterHolmes County [facility]08-21-2025 Telephone encounter Note * Telephone Encounter - Carrie Beaulieu RN - 11/14/2024 11:39 AM EDT Please review phone encounter from 11/11/24. addressed [facility]08-21-2025 Miscellaneous Notes* Telephone Encounter - Carrie Beaulieu RN - 11/14/2024 11:39 AM EDT Please review phone encounter from 11/11/24. addressed * Telephone Encounter - Brittany Mariscal - 11/13/2024 8:21 AM EDT Patient called and left a message regarding wanting results from MRI/CT return call to [phone] documented in this encounterHolmes County [facility]08-20-2025 Telephone encounter Note * Telephone Encounter - Kate Castillo RN - 11/13/2024 1:36 PM EDT Rx for Valium was sent. Dr. Poole has left for the day. I don't think he knew she needed that? Judy Castillo RN [facility] Work Phone: 1([phone]) 729-680708-20-2025 Miscellaneous Notes* Telephone Encounter - Kate Castillo RN - 11/13/2024 1:36 PM EDT Rx for Valium was sent. Dr. Poole has left for the day. I don't think he knew she needed that? Judy Castillo RN * Telephone Encounter - Fang Myers - 11/13/2024 1:31 PM EDT Patient called back requesting prescription for Valium and dilaudid. She uses [facility] in [place]. * Telephone Encounter - Jimmie Poole MD - 11/13/2024 12:52 PM EDT Called patient reviewed findings from [facility]. MRI liver consistent with metastatic cancer. She's had no fevers to suggest abscesses, though she also apparently has c diff. She is on antibiotics for that. We will plan to stick to plans for chemo. We will follow up as scheduled, she will continue treatment for the c diff. Jimmie Poole MD November 13, 2024 documented in this encounterHolmes County [facility]08-20-2025 Telephone encounter Note * Telephone Encounter - Fang Myers - 11/13/2024 1:31 PM EDT Patient called back requesting prescription for Valium and dilaudid. She uses [facility] in [place]. [facility] Work Phone: [phone]) 868-354008-20-2025 Telephone encounter Note* Telephone Encounter - Kate Castillo RN - 11/13/2024 1:05 PM EDT See phone note dated 11/13/24 Judy Castillo RN [facility] Work Phone: 1(184) [phone] Miscellaneous Notes* Telephone Encounter - Kate Castillo RN - 11/13/2024 1:05 PM EDT See phone note dated 11/13/24 Judy Castillo RN * Telephone Encounter - Kate Castillo RN - 11/13/2024 9:00 AM EDT Care Coordination Triage Note Cancer [place] Situation: Patient reports Bowel symptoms and Other [...] from c diff. Care coord [facility]. * Telephone Encounter - Kate Castillo RN [...] she stated understanding of all information. Bettye Cohn Pss * Telephone Encounter - Kate Castillo RN - 11/08/2024 3:07 PM EDT EMERGENCY ROOM CALL BACK Today's date: November 08, 2024 Patient identified by name and date of . YES Primary Cancer Diagnosis: Colon Reason for Emergency Room Visit: Abdominal pain Time of day presented to Emergency Room 1118am If Mon-Monday during business hours: Did you contact your Senior Counsel Commercial/Provider? Yes, told to present to emergency department Patient with any new symptom issues: No Psychosocial Risk Factors: None FOLLOW UP Patient reminded of her follow-up appointment with [facility] provider, Dr. Poole on 11/18/24: Yes Next Senior Counsel Commercial outreach with patient scheduled? NA Discussed Patient [...] and MRI Abdomen. Will fax request to [facility] to push images to [facility] system. Judy Castillo RN MRI FINDINGS: Liver: [...] to advise she is being admitted to [facility]. She had Cat Scans that showed [...] go straight to ED. documented in this encounterHolmes County [facility]08-20-2025 Telephone encounter Note * Telephone Encounter - Jimmie Poole MD - 11/13/2024 12:52 PM EDT Called patient reviewed findings from [facility]. MRI liver consistent with metastatic cancer. She's had no fevers to suggest abscesses, though she also apparently has c diff. She is on antibiotics for that. We will plan to stick to plans for chemo. We will follow up as scheduled, she will continue treatment for the c diff. Jimmie Poole MD November 13, 2024 [facility]08-20-2025 Telephone encounter Note* Telephone Encounter - Kate Castillo RN - 11/13/2024 9:00 AM EDT Care Coordination Triage Note Cancer [place] Situation: Patient reports Bowel symptoms and Other [...] Castillo RN November 13, 2024 9:00 AM [facility]08-20-2025 Telephone encounter Note* Telephone Encounter - Brittany Mariscal - 11/13/2024 8:21 AM EDT Patient called and left a message regarding wanting results from MRI/CT return call to [phone] [facility] Work Phone: [phone]) [phone] Telephone encounter Note* Telephone Encounter - Loni Kenny Fang - 11/13/2024 8:04 AM EDT Patient called back this morning asking for results. She also stated she is in a great deal of painand has diarrhea from c diff. Care coord [facility]. [facility] Work Phone: [phone]) 720-341008-19-2025 Telephone encounter Note* Telephone Encounter - Carrie Beaulieu RN - 11/12/2024 4:13 PM EDT Please see phone encounter from 11/11/24. Resolved [facility]08-19-2025 Miscellaneous Notes* Telephone Encounter - Carrie Beaulieu RN - 11/12/2024 4:13 PM EDT Please see phone encounter from 11/11/24. Resolved documented in this encounterHolmes County [facility]08-19-2025 Telephone encounter Note * Telephone Encounter - Kate Castillo RN - 11/12/2024 11:[address] Poole was planning on calling her today but would like Dr. Spring's opinion about scans first. Patient has a call/message into his office as well. Judy Castillo RN [facility]08-19-2025 Telephone encounter Note* Telephone Encounter - Christina Leach - 11/12/2024 11:07 AM EDT Patient called to see when Dr. Poole will be calling her about her results. She is hoping for a call today. [facility]08-18-2025 Telephone encounter Note* Telephone Encounter - [...] CT and MRI from outside facility (In [facility]) [facility]08-18-2025 Miscellaneous Notes* Telephone Encounter - Carrie [...] CT and MRI from outside facility (In [facility]) * Telephone Encounter - Brittany Mariscal - 11/11/2024 9:45 AM EDT Patient called regarding CT and MRI images in [facility] and would like a refill on pain medication return call to [phone] documented in this encounterHolmes County [facility]08-18-2025 Telephone encounter Note * Telephone Encounter [...] stated understanding of all information. Bettye Kenny [facility]08-18-2025 Telephone encounter Note* Telephone Encounter - Brittany Mariscal - 11/11/2024 9:45 AM EDT Patient called regarding CT and MRI images in [facility] and would like a refill on pain medication return call to [phone] [facility] Work Phone: [phone] Telephone encounter Note* Telephone Encounter - Rema [...] to check out the scans when available. [facility]08-15-2025 Miscellaneous Notes* Telephone Encounter - Rema [...] when available. * Telephone Encounter - Saeed Mancera - 11/08/2024 2:57 PM EDT Patient was in hospital overnight with cdiff and had CT scan which found two spots on liver. She isrequesting Dr. Spring looks at the imaging and she can talk to clinical. CB#: [phone] documented in this encounterHolmes County [facility]08-15-2025 Telephone encounter Note * Telephone Encounter - Kate Castillo RN - 11/08/2024 3:07 PM EDT EMERGENCY ROOM CALL BACK Today's date: November 08, 2024 Patient identified by name and date of . YES Primary Cancer Diagnosis: Colon Reason for Emergency Room Visit: Abdominal pain Time of day presented to Emergency Room 1118am If Mon-Monday during business hours: Did you contact your Senior Counsel Commercial/Provider? Yes, told to present to emergency department Patient with any new symptom issues: No Psychosocial Risk Factors: None FOLLOW UP Patient reminded of her follow-up appointment with [facility] provider, Dr. Poole on 11/18/24: Yes Next Senior Counsel Commercial outreach with patient scheduled? NA Discussed Patient [...] next outreach appointment? YES Kate Castillo RN [facility]08-15-2025 Telephone encounter Note* Telephone Encounter - Saeed Mancera - 11/08/2024 2:57 PM EDT Patient was in hospital overnight with cdiff and had CT scan which found two spots on liver. She isrequesting Dr. Spring looks at the imaging and she can talk to clinical. CB#: [phone] [facility]08-15-2025 Telephone encounter Note* Telephone Encounter - Kate Castillo RN - 11/08/2024 1:42 PM EDT Reviewed notes, given Vancomycin for C diff infection. Had CT A/P and MRI Abdomen. Will fax request to [facility] to push images to [employer] system. Judy Castillo RN MRI FINDINGS: Liver: Multiple lesions of varying sizes up to 10 mm throughout the liver, demonstrating restricteddiffusion, moderate T2 hyperintensity, T1 hypointensity, thin peripheral enhancement on early arterial phase with slow progressive enhancement on later phases, remaining hypointense relative to liver parenchyma. [facility]08-15-2025 Telephone encounter Note* Telephone Encounter - Christina Leach - 11/08/2024 11:34 AM EDT Patient called to advise she is being discharged. She advised she was given very bad news, is beinggiven antibiotics. Please advise Christina Leach [facility]08-15-2025 Discharge summary [facility] Medical Records Department [address] [place] [address] Instructions for Home/Discharge Instructions 11/08/24 1131 MR#: [id number] Acct: [id number] Name: LAKESHA KOCH Rep #:[id number] : 1960 64 From: Saroj dao DO PCP: Aubrey Lopez FABRICATION OPERATOR-C Status:ADM IN Discharge Instructions DC O2, CPAP, [...] 0RF Referrals / Follow Up: Aubrey Lopez, FABRICATION OPERATOR-C [Primary Care Provider] - Disposition Disposition (needs filled in before D/C Order can be placed): Home, Self Care 11/08/24 [facility] CC: Dr. Annette Mendez MD; Aubrey CURIEL FABRICATION OPERATOR-C Jessica ~ Signed [facility]08-15-2025 [facility]-14-[facility]25 Progress note Author Annette Mendez [facility] Note Date/Time November 07, 2024 8: 28pm [facility] Medical Records Department [address] [place] [address] Progress Note - Hospitalist 11/07/24 1818 MR#: [id number] Acct: [id number] Name: LAKESHA KOCH ILENE Rep #:[id number] : 1960 64 From: Annette Mendez MD PCP: Aubrey Lopez FABRICATION OPERATOR-C Status:ADM IN Location: [place] [address] Hospitalist Note Received page regarding patient's history [...] Cosigner Signature (if applicable): cc: ~* Signed [facility] Work Phone: [phone]) 216-461508-14-2025 Progress note [facility] Medical Records Department [address] [place] [address] Progress Note - Hospitalist 11/07/241817 MR#: [id number] Acct: [id number] Name: LAKESHA KOCH Rep #:[id number] : 1960 64 From: Annette Mendez MD PCP: Aubrey Lopez [facility] FABRICATION OPERATOR-C Status:ADM IN Location: MS3 [id number] Hospitalist Note Received page regarding patient's history [...] providers for further determination treatment and/or workup 11/07/24 2072 Cosigner Signature (if applicable): CC: ~ Signed [...] Cosigner Signature (if applicable): cc: ~* Signed [facility]08-14-2025 History and physical note Author Annette Mendez [facility] Note Date/Time November 07, 2024 3: 29pm [facility] Medical Records Department [address] [place] [address] H&P Exam - Hospitalist 11/07/24 1514 MR#: [id number] Acct: [id number] Name: LAKESHA KOCH Rep #:[id number] : 1960 64 From: Annette Mendez MD PCP: Aubrey Lopez FABRICATION OPERATOR-C Status:REG ER Location: ED HPI - General General Date of Admission: 11/07/24 Date of Service: 11/07/24 Chief Complaint: Abdominal pain HPI Narrative LAKESHA KOCH, is a 64-year-old female history of recurrent colon cancer, GERD, recent port placement and first dose of chemotherapy, anxiety who presented [facility] ED 11/07/2024 for abdominal pain. She has a history of 2 colon resections at [facility] and had port placed and just started [...] sinceovernight, initially went to the out Patient [facility] and they sent her to the ED. Continues to have the pain in the lower abdomen, denies right upper quadrant or upper abdominal pain, denies any fevers at home, no cough, chest pain, shortness of breath. Does report she feels she has had a little bit of a hard time emptying her bladder. [facility] Medical History Seizure disorder Hypotension Marijuana abuse [...] 90.3 H, Lymph % (Auto) 5.6 L, [place] % (Auto) 3.3, Eos % (Auto) 0.0, [...] is seen in the pelvis. Reading Location: [place] [address] Assessment & Plan Assessment/Plan (1) Abdominal pain: [...] # Recurrent colon cancer -Following with the [facility] -Has Mediport and had her first chemotherapy yesterday -Will continue to follow with them on discharge #Hypokalemia -Replace -Repeat in the AM #Depression/anxiety -Continue home medications #DVT ppx: SCDs Annette Mendez MD Charges/Coding Visit Charges Inpatient E&M: 60017 Init Hosp L2 11/07/24 1529 <Electronically signed by Annette Mendez MD> Cosigner Signature (if applicable): CC: Dr. Annette Mendez MD; Aubrey CURIEL FABRICATION OPERATOR-C Jessica~ Signed [facility] Work Phone: 1(404) 490-970308-14-2025 Discharge summary Author Lluvia Vann [facility] Note Date/Time November 07, 2024 3: 12pm [facility] Medical Records Department [address] [place] [address] Emergency Department Summary 11/07/24 MR#: [id number] Acct: [id number] Name: LAKESHA KOCH Rep #:[id number] : 1960 64 From: Lluvia Vann MD PCP: Aubrey Lopez FABRICATION OPERATOR-C Status:REG ER Location: ED HPI HPI - [...] nonbloody, nonbilious. Denies diarrhea, dysuria or hematuria. [facility] Medical History Seizure disorder Hypotension Marijuana abuse [...] 90.3 H Lymph % (Auto) 5.6 L [place] % (Auto) 3.3 Eos % (Auto) 0.0 [...] is seen in the pelvis. Reading Location: [place] [address] Discharge Plan Triage Chief Complaint: Abd Pain [...] Care Provider: Aubrey Lopez Referrals: Aubrey Lopez, FABRICATION OPERATOR-C [Primary Care Provider] - Print Language: Kenyan What to do if you have Problems For any increased pain, shortness of breath, bleeding, nausea or vomiting, chestpain, or any unexpected problems, contact your Primary Care Provider. Call [facility] ([phone]) or report to the closest Emergency Room. Call 911 if necessary. 11/07/24 1512 <Electronically signed by Lluvia Vann MD> Cosigner Signature (if applicable): CC: Aubrey CURIEL FABRICATION OPERATOR-C Jessica ~ Signed [facility] Work Phone: 1(355) 677-608608-14-2025 History and physical note [facility] Medical Records Department [address] [place] [address] H&P Exam - Hospitalist 11/07/24 1514 MR#: [id number] Acct: [id number] Name: LAKESHA KOCH Rep #:[id number] : 1960 64 From: Annette Mendez MD PCP: Aubrey Lopez FABRICATION OPERATOR-C Status:REG ER Location: ED HPI - General General Date of Admission: 11/07/24 Date of Service: 11/07/24 Chief Complaint: Abdominal pain HPI Narrative LAKESHA KOCH, is a 64-year-old female history of recurrent colon cancer, GERD, recent port placement and first dose of chemotherapy, anxiety who presented [facility] ED 11/07/2024 for abdominal pain. She has a history of 2 colon resections at [facility] and had port placed and just started [...] sinceovernight, initially went to the out Patient [facility] and they sent her to the ED. Continues to have the pain in the lower abdomen, denies right upper quadrant or upper abdominal pain, denies any fevers at home, no cough, chest pain, shortness of breath. Does report she feels she has had a little bit of a hard time emptying her bladder. [facility] Medical History Seizure disorder Hypotension Marijuana abuse [...] 90.3 H, Lymph % (Auto) 5.6 L, [place] % (Auto) 3.3, Eos % (Auto) 0.0, [...] is seen in the pelvis. Reading Location: [facility] Assessment & Plan Assessment/Plan (1) Abdominal [...] # Recurrent colon cancer -Following with the [facility] -Has Mediport and had her first chemotherapy yesterday -Will continue to follow with them on discharge #Hypokalemia -Replace -Repeat in the AM #Depression/anxiety -Continue home medications #DVT ppx: SCDs Annette Mendez MD Charges/Coding Visit Charges Inpatient E&M: 48265 Init Hosp L2 11/07/24 1889 Cosigner Signature (if applicable): CC: Dr. Annette Mendez MD; Aubrey CURIEL FABRICATION OPERATOR-C Jessica~ Signed [facility]08-14-2025 Discharge summary [facility] Medical Records Department [address] [place] [address] Emergency Department Summary 11/07/24 MR#: [id number] Acct: [id number] Name: LAKESHA KOCH ILENE Rep #:[id number] : 1960 64 From: Lluvia Vann MD PCP: Aubrey Lopez FABRICATION OPERATOR-C Status:REG ER Location: ED HPI HPI - [...] nonbloody, nonbilious. Denies diarrhea, dysuria or hematuria. [facility] Medical History Seizure disorder Hypotension Marijuana abuse [...] 90.3 H Lymph % (Auto) 5.6 L [place] % (Auto) 3.3 Eos % (Auto) 0.0 [...] is seen in the pelvis. Reading Location: [place] [address] Discharge Plan Triage Chief Complaint: Abd Pain [...] Care Provider: Aubrey Lopez Referrals: Aubrey Lopez, FABRICATION OPERATOR-C [Primary Care Provider] - Print Language: Kenyan What to do if you have Problems For any increased pain, shortness of breath, bleeding, nausea or vomiting, chestpain, or any unexpected problems, contact your Primary Care Provider. Call [facility] ([phone]) or report tothe closest Emergency Room. Call 911 if necessary. 11/07/24 1512 Cosigner Signature (if applicable): CC: Aubrey CURIEL FABRICATION OPERATOR-C Jessica ~ Signed [facility]08-14-2025 Telephone encounter Note* Telephone Encounter - Christina Leach - 11/07/2024 3:05 PM EDT Patient called to advise she is being admitted to [facility]. She had Cat Scans that showed she either hasColitis or Tumors on her liver. Cancelled 11/08 Hydration appointment Christina Leach [facility]08-14-2025 Radiology Diagnostic study note [facility] Imaging Services [address] [place], [place] [id number] Abdomen/Pelvis W IV Cont ONLY MR#: [id number] Acct: [id number] Name: LAKESHA KOCH Rep #: [id number] : 1960 F 64 From: Gal Thomas MD PCP: Aubrey Lopez FABRICATION OPERATOR-C Status: REG ER Study:Abdomen/Pelvis W IV Cont ONLY Date of E xam: 11/07/24 Exam# [id number] Ordering Dr: Nitesh Vann MD PROCEDURE: ABDOMEN/PELVIS [...] is seen in the pelvis. Reading Location: [facility] CC: Dr. Lluvia Vann MD; [facility] FABRICATION OPERATOR-C Beam ~ Tmd Teacher Assistant: Signed [facility]08-14-2025 Telephone encounter Note* Telephone Encounter - Amber Casillas RN - 11/07/2024 10:57 AM EDT Call made to patient's sister (Jeanette) that per Adrienne Bahena CNP patient needs to go to ED d/t abdominal pain. Jeanette will make contact with patient and have her go straight to ED. [facility]08-14-2025 Telephone encounter Note* Telephone Encounter - [...] patient verbalizes understanding: Yes Kate Castillo RN [facility] Work Phone: [phone]) 540-206808-14-2025 Miscellaneous Notes* Telephone Encounter - Kate Castillo [...] off. Germaine Jennings LPN documented in this encounterHolmes [facility]08-14-2025 Telephone encounter Note * Telephone Encounter [...] get it taken off. Germaine Jennings LPN [facility]08-14-2025 Telephone encounter Note* Telephone Encounter - Alyson Brown RN - 11/07/2024 8:00 AM EDT Pt of heme/onc Dr Poole calling with c/o nausea/vomiting since receiving chemo pump yesterday.Conf to [facility] marine railway operator for transfer to the office. [facility]08-14-2025 Miscellaneous Notes* Telephone Encounter - Alyson Brown RN - 11/07/2024 8:00 AM EDT Pt of heme/onc Dr Poole calling with c/o nausea/vomiting since receiving chemo pump yesterday.Conf to [facility] marine railway operator for transfer to the office. documented in this encounterHol[facility]08-13-2025 NoteHNO ID: [id number] Author: JERRY ELLIS RN Service: ? Author Type: Registered Nurse Type: Progress Notes Filed: 11/06/2024 14:00 Note Text: .[facility]08-13-2025 History of Present illness Narrative* Jerry Ellis RN - 11/06/2024 11:46 AM EDT . documented in this encounterHolmes [facility]08-12-2025 NoteMi[facility]08-[facility] History of Present illness Narrative* Jimmie [...] which included preparing to see the patient, [id number] patient care, completing clinical documentation, obtaining and/or reviewing separately obtained history, counseling and educating the patient/family/caregiver, ordering medications, arron ts, or procedures, communicating with other HCPs (not separately reported), independently interpreting results (not separately reported), communicating results to the patient/family/caregiver, and care coordination (not separately reported). And review of NCCN guidelines Electronically Signed: Jimmie Poole MD November 05, 2024 documented in this encounterHol[facility]08-01-2025 Telephone encounter Note * Telephone Encounter - Amber Valverde LISW - 10/25/2024 2:23 PM EDT SOCIAL WORK FOLLOW UP NOTE: CANCER CENTER Date of service: October 25, 2024 Lakesha Monae [place] is being seen for a follow up [...] emailing her the resource listing SW has developedBrittney in agreement. SW emailed several transportation resources to pt's sister this date. No other needs identified at this time. PLAN: Continue follow up as needed F/U APPOINTMENT: PRN Assigned SW listed in Care Team tab: Yes EVIE Peterson-Roger [facility]08-01-2025 Miscellaneous Notes* Telephone Encounter - Amber Valverde LISW - 10/25/2024 2:23 PM EDT SOCIAL WORK FOLLOW UP NOTE: CANCER CENTER Date of service: October 25, 2024 Lakesha [...] up as needed F/U APPOINTMENT: PRN Assigned SW listed in Care Team tab: Yes EVIE Peterson-Roger documented in this encounterHolmes [facility]08-01-2025 Telephone encounter Note * Telephone Encounter - Rema Beltre RN - 10/25/2024 1:23 PM EDT Refilled script on 10/22 [facility]08-01-2025 Miscellaneous Notes* Telephone Encounter - Rema Beltre RN - 10/25/2024 1:23 PM EDT Refilled script on 10/22 documented in this encounterHol[facility]07-31-2025 Telephone encounter Note * Telephone Encounter - Rema Beltre RN - 10/24/2024 1:50 PM EDT Patient requested small refill of dilaudid. Pended script for Dr. Spring to sign. [facility]07-31-2025 Miscellaneous Notes* Telephone Encounter - Rema Beltre RN - 10/24/2024 1:50 PM EDT Patient requested small refill of dilaudid. Pended script for Dr. Spring to sign. * Telephone Encounter - Brittany Mariscal - 10/24/2024 12:53 PM EDT Patient called and left a message regarding needing a prescription refill return call to [phone] documented in this encounterHolmes [facility]07-31-2025 Telephone encounter Note * Telephone Encounter - Brittany Mariscal - 10/24/2024 12:53 PM EDT Patient called and left a message regarding needing a prescription refill return call to [phone] [facility] Work Phone: [phone] [facility]Mi[facility]07-[facility]-20[facility] History of Present illness Narrative* Tessa Spring MD - 10/24/2024 12:04 PM EDT Established Patient Visit REASON FOR VISIT Follow up I have communicated my name and active licensure. The patient's identity and physical location wereverified at the time of this visit. Either the patient or their legal public utilities sales representative has been informed of the risks [...] requiring medication, no history of angina, CHF, [place], cardiac surgery or stents. Denies rest pain, [...] Level: 4 - Moderate Tessa Spring MD [facility] October 24, 2024 * Rema Beltre RN - 10/24/2024 11:30 AM EDT New/Est pt: established patient Reason for apt: f/u / Plan per Dr. Poole 10/10/24: RECOMMENDATION/PLAN: plan adjuvant FolFOx given these developments. Will see if we can move things up on the schedule. documented in this encounterHol[facility]07-31-2025 Telephone encounter Note * Telephone Encounter - Rema Beltre RN - 10/24/2024 12:00 PM EDT Questions answered during phone call on 10/24. [facility]07-31-2025 Miscellaneous Notes* Telephone Encounter - Rema Beltre RN - 10/24/2024 12:00 PM EDT Questions answered during phone call on 10/24. documented in this encounterHol[facility]07-31-2025 NoteMi[facility]07-30-2025 Discharge summary [facility] Medical Records Department [address] [place] [address] Emergency Department Summary 10/23/24 MR#: [id number] Acct: [id number] Name: LAKESHA KOCH Rep #:[id number] : 1960 64 From: Ankit Marsh MD PCP: Aubrey Lopez Tana FABRICATION OPERATOR-C Status:REG ER Location: ED HPI History of [...] that shecannot tolerate even sips of water. [facility] Medical History Seizure disorder Hypotension Marijuana abuse [...] 74.0 H Lymph % (Auto) 17.9 L [place] % (Auto) 4.8 Eos % (Auto) 2.2 [...] Care Provider: Aubrey Lopez Referrals: Aubrey Lopez, FABRICATION OPERATOR-C [Primary Care Provider] - As soon as possible Activity Restrictions/Additional Instructions: Continue your Zofran at home. Clear liquid diet and advance as tolerated. Drink plenty of oral fluids. Return with new or worsening symptoms. Print Language: Kenyan Disposition Disposition: Home, Self Care What to do if you have Problems For any increased pain, shortness of breath, bleeding, nausea or vomiting, chestpain, or any unexpected problems, contact your Primary Care Provider. Call [facility] ([phone]) or report tothe closest Emergency Room. Call 911 if necessary. 10/23/24 1135 Cosigner Signature (if applicable): CC: Aubrey CURIEL FABRICATION OPERATOR-C Jessica ~ Signed [facility]07-22-2025 Telephone encounter Note* Telephone Encounter - [...] that I can reach out to the exhibition carver provider since Dr. Spring is currently out ofthe office, she stated okay to wait until he returns. Virtual visit scheduled with Dr. Spring on 10/24. Patient understanding and thankful for call. [facility]07-22-2025 Miscellaneous Notes* Telephone Encounter - Rema [...] that I can reach out to the exhibition carver provider since Dr. Spring is currently out [...] and concerns of pain return call to [phone] documented in this encounterHol[facility]07-22-2025 Telephone encounter Note * Telephone Encounter [...] and concerns of pain return call to [phone] [facility] Work Phone: [phone]) [phone] Telephone encounter Note* Telephone Encounter - Fang Myers - 10/11/2024 2:44 PM EDT Rescheduled and my chart message sent to patient [facility] Work Phone: [phone] Miscellaneous Notes* Telephone Encounter - Fang Myers - 10/11/2024 2:44 PM EDT Rescheduled and my chart message sent to patient * Telephone Encounter - Kate Castillo RN - 10/11/2024 10:58 AM EDT PSS: please reschedule patient's start date now that her port has been moved up to 10/21/24. SEE phone encounter 10/02/24 and 09/25/24. Need OV 812 and hopefully start 11/06/24. Please send Mychart with new start time. Judy Castillo RN documented in this encounterHolmes County [facility]07-18-2025 Telephone encounter Note * Telephone Encounter - Kate Castillo RN - 10/11/2024 10:58 AM EDT PSS: please reschedule patient's start date now that her port has been moved up to 10/21/24. SEE phone encounter 10/02/24 and 09/25/24. Need OV 8/12 and hopefully start 11/06/24. Please send Mychart with new start time. Judy Castillo RN [facility] Work Phone: [phone]) 326-432007-18-2025 Miscellaneous Notes* [facility] - Priscilla Molina, [...] treatment once it begins. documented in this encounterHolmes County [facility]07-18-2025 Progress note* Allied Health - Priscilla [...] to find her treatment once it begins. [facility]07-17-2025 [facility]Mi[facility]07-17-2025 History of Present illness Narrative* Jimmie [...] 09-25-24 follow up, post debulking. CT at [place] September 13, 2024 looks ok, report being pursued 10-10-24 follow up, she pushed her appointment sback to accommodate a trip, we dicussed the importance of timely adjuvant therapy CLINICAL IMPRESSION: Stage II colon cancer with high risk features. Local and intrabdominal recurrence. MMS. RECOMMENDATION/PLAN: plan adjuvant FolFOx given these [...] which included preparing to see the patient, [id number] patient care, completing clinical documentation, obtaining and/or reviewing separately obtained history, counseling and educating the patient/family/caregiver, ordering medications, arron ts, or procedures, communicating with other HCPs (not separately reported), independently interpreting results (not separately reported), communicating results to the patient/family/caregiver, and care coordination (not separately reported). And review of NCCN guidelines Electronically Signed: Jimmie Poole MD October 10, 2024 documented in this encounterHolmes County [facility]07-10-2025 Telephone encounter Note * Telephone Encounter - Christina Leach - 10/03/2024 10:47 AM EDT Rescheduled all appointments as requested Christina Leach [facility]07-10-2025 Miscellaneous Notes* Telephone Encounter - Christina Leach - 10/03/2024 10:47 AM EDT Rescheduled all appointments as requested Christina Leach * Telephone Encounter - Kate Castillo RN - 10/02/2024 3:39 PM EDT Patient will be on vacation from 10/25 - 8/11. Please move C2 from 10/28/24 to OV on 11/05 w/ treatment on 11/06/24. She also needs lab scheduled for 10/24/24. Judy Castillo RN documented in this encounterHolmes County [facility]07-09-2025 Telephone encounter Note * Telephone Encounter - Kate Castillo RN - 10/02/2024 3:39 PM EDT Patient will be on vacation from 10/25 - 11/04. Please move C2 from 10/28/24 to OV on 11/05 w/ treatment on 11/06/24. She also needs lab scheduled for 10/24/24. Judy Castillo RN [facility] Work Phone: 1(260) 936-200707-09-2025 [facility]Mi[facility]07-09-2025 History of Present illness Narrative* Kate Castillo RN - 10/02/2024 3:33 PM EDT Patient teaching was completed over the phone. Kate Castillo RN Senior Counsel Commercial Pre Chemo Patient identified by name and date of . YES Confirmed date and time for chemotherapy ? YES Other appointments (labs, imaging) discussed? YES Discussed where to park (damage inside adjuster), charge for parking YES Discussed where to [...] time. Kate Castillo RN documented in this encounterHolmes County [facility]07-03-2025 Telephone encounter Note * Telephone Encounter - Fang Myers - 09/26/2024 8:37 AM EDT 3 CYCLES ENTERED START EMAIL SENT [facility] Work Phone: 1(286) 443-219807-03-2025 Miscellaneous Notes* Telephone Encounter - Loni Kenny Fang - 09/26/2024 8:37 AM EDT 3 CYCLES ENTERED START EMAIL SENT * Telephone Encounter - Christina Leach - 09/25/2024 3:11 PM EDT Chemo Education -SCHEDULED 10/02 Port placement-SCHEDULED 10/10 Start Folfox after port placement CBC/CMP, straight back to start CBC/CMP/Mg/OV with C2 CEA monthly documented in this encounterHolmes County [facility]07-02-2025 Telephone encounter Note * Telephone Encounter - Ellyn Zhang RN - 09/25/2024 3:38 PM EDT Met with patient and introduced myself. Patient was given a My Journey binder with chemocare information, office contact information, thermometer, and additional chemotherapy resource booklets. Patient aware this nurse will review on scheduled appointment date. Ellyn Zhang RN [facility]07-02-2025 Miscellaneous Notes* Telephone Encounter - Ellyn Zhang RN - 09/25/2024 3:38 PM EDT Met with patient and introduced myself. Patient was given a My Journey binder with chemocare information, office contact information, thermometer, and additional chemotherapy resource booklets. Patient aware this nurse will review on scheduled appointment date. Ellyn Zhang RN documented in this encounterHolmes County [facility]07-02-2025 Telephone encounter Note * Telephone Encounter - Christina Leach - 09/25/2024 3:11 PM EDT Chemo Education -SCHEDULED 10/02 Port placement-SCHEDULED 10/10 Start Folfox after port placement CBC/CMP, straight back to start CBC/CMP/Mg/OV with C2 CEA monthly [facility]07-02-2025 [facility]07-02-2025 History of Present illness Narrative* Jimmie [...] 09-25-24 follow up, post debulking. CT at [place] September 13, 2024 looks ok, report being [...] which included preparing to see the patient, [id number] patient care, completing clinical documentation, obtaining and/or reviewing separately obtained history, counseling and educating the patient/family/caregiver, ordering medications, arron ts, or procedures, communicating with other HCPs (not separately reported), independently interpreting results (not separately reported), communicating results to the patient/family/caregiver, and care coordination (not separately reported). And review of NCCN guidelines Electronically Signed: Jimmie Poole MD September 25, 2024 documented in this encounterHolmes County [facility]06-27-2025 Instructions* Patient Instructions* Edwardo Valencia APRN.AQUATIC CENTRE MANAGER - 09/20/2024 12:59 PM EDT Lakesha, It [...] with Dr. Poole on October 26 in [place]. - Follow-up with your surgeon, Dr. Moe, on October 24. - My bone worker will contact you to arrange an in-person visit, with me in approximately 4 weeks. Additional instructions: - Call our office 2-3 days before running out of any medications, especially pain medications, to request refills. You can also use [employer] for refill requests. - If you experience any new or worsening symptoms, such as uncontrolled pain, frequent diarrhea, orskin breakdown, please contact our office immediately. Our office number is [phone]. A registered nurse is available to answer your questions, and I will follow up as needed. Thank you for your time today, and I look forward to seeing you in person at our next visit. Edwardo Valencia CNP documented in this encounterHolmes County [facility]06-27-2025 History of Present illness Narrative* Edwardo Valencia APRN.LUZMA - 09/20/2024 7:00 AM EDT Images from the original note were not included. PALLIATIVE MEDICINE AT HOME INITIAL CONSULT SERVICE DATE: 09/20/2024 Referring Physician: Christie Sánchez [address] [facility] [address] Primary Physician: Christie Sánchez NP IDENTIFICATION AND INTRODUCTION: Lakesha Koch is a 64 year old female This visit took place Virtually; I have communicated my name and active licensure. The patient's identity and physical location were verified at the time of this visit. The patient or their legal public utilities sales representative has been informed of the risks and benefits of -- and alternatives to -- treatment through a remote evaluation and consents to proceed with the evaluation remotely. The patient is being seen alone Recording using TM software for draft documentation of the visit was discussed with the patient/authorized public utilities sales representative; all questions welcomed and answered. Patient/authorized public utilities sales representative agreed to proceed REASON FOR CONSULT: [...] longer. Most of her family lives in [place], but they maintain close contact. She has a loco who helps with transportation to appointments. Lakesha is trying to gain weight and consumes high-calorie foods, including ice cream and Boost high-calorie drinks. She reports that many foods do not taste good to her since her last surgery in December. She enjoys Scottish food and barbecue pork. She denies any immediate family history of alcohol, illegal drug, or prescription abuse. She has a personal history of alcohol and illegal drug use in the 1980s but denies any issues with prescription medications. [...] Family History REVIEW OF SYSTEMS: Modified ESAS ([place] Symptom Assessment Scale): Information Provided By: Patient [...] surface. - No ovarian parenchyma identified in public utilities sales representative sections. B. Right retroperitoneal mass, resection: [...] Contains abnormal data RENAL FUNCTION PANEL Order: [id number] Status: Final result Test Result Released: Yes [...] High CM 106 High CM Comment: The [place] Diabetes Association (ADA) provides guidance for cutoff [...] Standards of Medical Care in Diabetes 2016, [place] [employer] Association. Diabetes Care. 2016.39(Suppl 1). BUN [...] Contains abnormal data COMPLETE BLOOD COUNT Order: [id number] Status: Final result Test Result Released: Yes [...] Panel: No results found for: UQCANN, UQBNZL, BMG0ONN, UQAMPH, UQMAMP, UQBUPRE, UQNORBUP, UQMTHD, UQEDDP, UQTRAM, UQDTRM, UQFNTL, UQNFTL, UQCODE, UQMORP, UQDCDN, UQHCOD, UQOXYC, UQHMOR, UQOXYM, UQCREA, UQPH, UQSPGR, UQOXID, UQSPQ OARRS checked?: Yes, no abberancy Naloxone offered?: Yes, accepted Prescribed Morphine Equivalent Daily Dose (MEDD): Yes < 50 MEDD Chronic Opioid Management Agreement and Informed Consent: Will complete at next visit Edwardo Valencia APRN.AQUATIC CENTRE MANAGER Assessment & Plan 1. Palliative care by [...] father (91 yrs old) Most live in [place]. Has a good friend who drives her to appts. Family comes to visit for support. Briefly discussed goals at this time are to gain wt, not fall, gain some strength. ANTONIO will revisit face to face for more serious goals discussion. Existence of Advance Directives: Yes, documentation or copy in medical record HCPOA: Jeanette Garvin (sister); first alternate Brittney Koch, second alternate Calli Alfaro FULL CODE Next Visit: 4 Weeks in-person Palliative Medicine Nurse to do telephonic follow-up: No Casino Cashier Services: None at this time Referral to Swiss Type Screw Machine Operator: No, not at this time Recommendations will be communicated back to the consulting service by way of shared electronic medical record. (Some elements copied from inpatient palliative note dated 08/21/2024, Dr. Spring note on 09/16/24 which have been updated where appropriate, and reflect current medical decision making from today, 09/20/24.) Edwardo Valencia APRN.LUZMA September 20, 2024 12:54 PM documented in this encounterHolmes County [facility]06-27-2025 [facility]06-[facility] Telephone encounter Note* Telephone Encounter - Rema Beltre RN - 09/16/2024 2:35 PM EDT Called patient on 09/13 to discuss. [facility]06-23-2025 Miscellaneous Notes* Telephone Encounter - Rema Beltre RN - 09/16/2024 2:35 PM EDT Called patient on 09/13 to discuss. documented in this encounterHolmes County [facility]06-23-2025 [facility]06-[facility]-2025 History of Present illness Narrative* Tessa [...] surface. - No ovarian parenchyma identified in public utilities sales representative sections. B. Right retroperitoneal mass, resection: [...] on the pathology report. Tessa Spring MD [facility] * Fátima Lubin [...] surface. - No ovarian parenchyma identified in public utilities sales representative sections. B. Right retroperitoneal mass, resection: [...] Seven (7) tumor deposits. documented in this encounterHolmes County [facility]06-23-2025 [facility]06-[facility]-2025 [facility]06-20-2025 Discharge summary Author Qamar Smith [facility] Note Date/Time September 13, 2024 3:01 pm [facility] Medical Records Department [address] [place] [address] Discharge Summary 09/12/242028 MR#: [id number] Acct: [id number] Name: LAKESHA KOCH Rep #:[id number] : 1960 64 From: Qamar Smith MD PCP: Aubrey Lopez FABRICATION OPERATORNeptali Status:ADM IN Location: [place] [address] Providers Date of Admission: 09/04/24 Primary Care Physician: VEENA Kothari, FABRICATION OPERATOR-C Reason For Visit: ABD PAIN; STAGE 2 [...] __x__ GRD contraindicated. 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 The following psychotropic medication was present [...] __x__ GRD contraindicated. Reason contraindicated: stable chronic correction use. Medications at Discharge Home Medications alendronate [...] discharge home alone. Discharge home alone 09/15/2024, [facility], pending acceptance. Physical Exam Const alert [...] 71.1 H, Lymph % (Auto) 17.0 L, [place] % (Auto) 7.2, Eos % (Auto) 3.4, [...] No Additional Instructions: Discharge home alone 09/15/2024, [facility], pending acceptance. Please Follow Up With: [...] Smith Chi Primary Care Provider: Aubrey Lopez [facility] Instructions Additional Instructions / Restrictions: Discharge home alone 09/15/2024, [facility], pending acceptance. Discharge Orders/Prescriptions Prescriptions: New [...] Qty: 26 0RF Referrals / Follow Up: Jessica,Aubrey CURIEL, FABRICATION OPERATOR-C [Primary Care Provider] - Disposition Disposition (needs [...] cholecystectomy, she would prefer to return to [facility] for care, vital signs stable. Discharge to [facility] Department 09/13/2024, for evaluation, admission to hospital. 09/13/241435<Electronically signed by Qamar Smith MD> Cosigner Signature (if applicable): cc: Dr. Qamar Smith MD; Aubrey CURIEL FABRICATION OPERATOR-C Jessica ~* Signed ADDENDUM by Dr. Qamar Smith MD on 09/13/24 at 1501 Addendum Gallbladder ultrasound cancelled due to patient having eaten. 09/13/24 1501<Electronically signed by Qamar Smith MD> Cosigner Signature (if applicable): cc: Dr. Qamar Smith MD; [facility] FABRICATION OPERATOR-C Beam ~* Signed [facility] Work Phone: 1(397) 128-556506-20-2025 Telephone encounter Note* Telephone Encounter - Rema Beltre RN - 09/13/2024 4:23 PM EDT Called and spoke with patient. She started having severe sharp intermediate abdominal pain on Monday. Went to [facility] and had imaging done. 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 Spring's opinion. Advised patient she should report to ER, however, patient is scheduled for a follow up on with Dr. Spring and would like to wait until Monday to see him instead of going to ER. Patient understanding if pain becomes worse to report to ER. [facility]06-20-2025 Miscellaneous Notes* Telephone Encounter - Rema Beltre RN - 09/13/2024 4:23 PM EDT Called and spoke with patient. She started having severe sharp intermediate abdominal pain on Monday. Went to [facility] and had imaging done. 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 Spring's opinion. Advised patient she should report to ER, however, patient is scheduled for a follow up on with Dr. Spring and would like to wait until Monday to see him instead of going to ER. Patient understanding if pain becomes worse to report to [facility] ER. * Telephone Encounter - Brittany Mariscal [...] a possible gallbladder problem return call to [phone] documented in this encounterHolmes County [facility]06-20-2025 Discharge summary [facility] Medical Records Department [address] [place] [address] Discharge Summary 09/12/242028 MR#: [id number] Acct: [id number] Name: LAKESHA KOCH ILENE Rep #:[id number] : 1960 64 From: Qamar Smith MD PCP: Aubrey Lopez Status:ADM IN Location: [place] [address] Providers Date of Admission: 09/04/24 Primary Care Physician: VEENA Kothari, FABRICATION OPERATOR-C Reason For Visit: ABD PAIN; STAGE 2 [...] __x__ GRD contraindicated. 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 The following psychotropic medication was present [...] __x__ GRD contraindicated. Reason contraindicated: stable chronic correction use. Medications at Discharge Home Medications alendronate 70 mg tablet 70 mg PO [facility] 07/24/24 buspirone 7.5 mg tablet 7.5 mg PO [...] discharge home alone. Discharge home alone 09/15/2024, [facility], pending acceptance. Physical Exam Const alert [...] 71.1 H, Lymph % (Auto) 17.0 L, [place] % (Auto) 7.2, Eos % (Auto) 3.4, [...] No Additional Instructions: Discharge home alone 09/15/2024, [facility] PT, pending acceptance. Please Follow Up With: [...] Smith Chi Primary Care Provider: Aubrey Lopez Instructions Additional Instructions / Restrictions: Discharge home alone 09/15/2024, [facility], pending acceptance. Discharge Orders/Prescriptions Prescriptions: New [...] 0RF Referrals / Follow Up: Aubrey Lopez, FABRICATION OPERATOR-C [Primary Care Provider] - Disposition Disposition (needs filled in before D/C Order can be placed): Home Health Service 09/12/242041 Cosigner Signature (if applicable): CC: Dr. Qamar Smith MD; Aubrey Tana KIRBY Beam~ Signed ADDENDUM by Dr. Qamar Smith [...] cholecystectomy, she would prefer to return to [facility] for care, vital signs stable. Discharge to [facility] 09/13/2024, for evaluation, admission to hospital. 09/13/24 1436 Cosigner Signature (if applicable): cc: Dr. Qamar Smith MD; Aubrey Tana KIRBY Beam ~* Signed ADDENDUM by Dr. Qamar Smith MD on 09/13/24 at 1501 Addendum Gallbladder ultrasound cancelled due to patient having eaten. 09/13/24 1501 Cosigner Signature (if applicable): cc: Dr. Qamar Smith MD; [facility] MIRTA Lopez ~* Signed [facility]06-20-2025 Telephone encounter Note* Telephone Encounter - [...] a possible gallbladder problem return call to [phone] [facility] Work Phone: 1(428) 174-179106-20-2025 Radiology Diagnostic study note [facility] Imaging Services [address] [place], [place] [address] Abdomen/Pelvis WITH Contrast MR#: [id number] Acct: [id number] Name: LAKESHA KOCH ILENE Rep #: [id number] : 1960 F 64 From: Ray Rawls MD PCP: Aubrey Lopez [facility] FABRICATION OPERATOR-C Status: REG CLI Study:Abdomen/Pelvis WITH Contrast Date of Ex am: 09/13/24 Exam# [id number] Ordering Dr: Qamar Smith MD PROCEDURE: ABDOMEN/PELVIS [...] 4. Other findings as noted. Reading Location: [id number] CC: Dr. Qamar Smith MD; [facility] FABRICATION OPERATOR-C Beam ~ Tmd Teacher Assistant: Signed [facility] Work Phone: 1(413) 897-604606-19-2025 [facility]06-16-2025 History and physical note Author Qamar Smith [facility] Note Date/Time September 09, 2024 4:22 pm [facility] Medical Records Department [address] [place] [address] History & Physical Exam 09/04/242118 MR#: [id number] Acct: [id number] Name: LAKESHA KOCH Rep #:[id number] : 1960 64 From: Qamar Smith MD PCP: Aubrey Lopez FABRICATION OPERATOR-C Status:ADM IN Location: [facility] TCU10-1 HPI - General General Date of Admission: 09/04/24 Date of Service: 09/04/24 Chief Complaint: Here for rehabilitation. HPI Narrative LAKESHA KOCH, is a 64 Female who presents with followin08/28/2024 Admit to [facility]. Lakesha has past medical history [...] rehabilitation, strengthening, prior to discharge home alone. [facility] Medical History (Updated 09/04/24 @ 21:52 by [...] __x__ GRD contraindicated. Reason contraindicated: stable chronic correction use. The following psychotropic medication was present [...] __x__ GRD contraindicated. Reason contraindicated: stable chronic correction use. 09/04/243 <Electronically signed by Qamar Smith MD> Cosigner Signature (if applicable): CC: Dr. Qamar Smith MD; [place]ico [facility] FABRICATION OPERATOR-C Beam~ Signed ADDENDUM by Dr. Qamar Smith MD on 09/05/24 at 0735 Addendum Seizure disorder - Resident refused Depakote ER 500mg bid, she states she has not taken for 2 months, she does see Dr. Gil Hylton, Neurologist at [facility]. She informed me her seizures are hemalatha vu, hot flash, lasts 2 minutes, goes away,she does not lose consciousness, no tonic-clonic activity. Will stop Depakote, resident aware of risks. 09/05/24 0735<Electronically signed by Qamar Smith MD> Cosigner Signature (if applicable): cc: Dr. Qamar Smith MD; Aubrey CURIEL NP-C Jessica ~* Signed ADDENDUM by Dr. Qamar Smith MD on 09/09/24 at 1622 Addendum Allergic dermatitis - Abdominal incision, tape removed, DSD daily, HC 2.5% creamnot helpful, add Medrol dose pack, Hydroxyzine 50mg tid prn itching. 09/09/24 1622<Electronically signed by Qamar Smith MD> Cosigner Signature (if applicable): cc: Dr. Qamar Smith MD; Aubrey CURIEL FABRICATION OPERATOR-C Beam ~* Signed [facility] Work Phone: 1(486) 418-627206-16-2025 History and physical note [facility] Medical Records Department [address] [place] [address] History & Physical Exam 09/04/242118 MR#: [id number] Acct: [id number] Name: LAKESHA KOCH ILENE Rep #:[id number] : 1960 64 From: Qamar Smith MD PCP: Aubrey Lopez Status:ADM IN Location: [place] [address] HPI - General General Date of Admission: 09/04/24 Date of Service: 09/04/24 Chief Complaint: Here for rehabilitation. HPI Narrative LAKESHA KOCH, is a 64 Female who presents with followin08/28/2024 Admit to [facility]. Lakesha has past medical history [...] rehabilitation, strengthening, prior to discharge home alone. [facility] Medical History (Updated 09/04/24 @ 21:52 by [...] __x__ GRD contraindicated. 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 The following psychotropic medication was present [...] __x__ GRD contraindicated. 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 09/04/24 1363 Cosigner Signature (if applicable): CC: Dr. Qamar Smith MD; [facility] FABRICATION OPERATOR-C Beam~ Signed ADDENDUM by Dr. Qamar Smith MD on 09/05/24 at 0735 Addendum Seizure disorder - Resident refused Depakote ER 500mg bid, she states she has not taken for 2 months, she does see Dr. Gil Hylton, Neurologist at [facility]. She informed me her seizures are hemalatha vu, hot flash, lasts 2 minutes, goes away,she does not lose consciousness, no tonic-clonic activity. Will stop Depakote, resident aware of risks. 09/05/24 0735 Cosigner Signature (if applicable): cc: Dr. Qamar Smith MD; Aubrey CURIEL NP-C Beam ~* Signed ADDENDUM by Dr. Qamar Smith MD on 09/09/24 at 1622 Addendum Allergic dermatitis - Abdominal incision, tape removed, DSD daily, HC 2.5% creamnot helpful, add Medrol dose pack, Hydroxyzine 50mg tid prn itching. 09/09/24 162 Cosigner Signature (if applicable): cc: Dr. Qamar Smith MD; Aubrey CURIEL FABRICATION OPERATOR-C Beam ~* Signed [facility]06-12-2025 Progress note Author Keri Michel [facility] Note Date/Time September 05, 2024 5:24 pm [facility] Medical Records Department [address] [place] [address] Progress Note - Pharmacy 09/05/24 1655 MR#: [id number] Acct: [id number] Name: LAKESHA KOCH Rep #:[id number] : 1960 64 From: Keri Michel PCP: Aubrey Lopez Status:ADM IN Location: [facility] Documented by User: Keri Michel 09/05/24 17:22 [...] Alendronate Sodium 70 Mg Tablet PO Sa [facility] Buspirone HCl 7.5 mg 09/05/24 10:00 09/05/24 [...] Keri Michel Cosigner Signature (if applicable): 09/05/24 1724 <Electronically signed by Qamar Smith MD> CC: ~ Signed [facility] Work Phone: 1(665) 637-365906-12-2025 Progress note [facility] Medical Records Department [address] [place] [address] Progress Note - Pharmacy 09/05/24 1655 MR#: [id number] Acct: [id number] Name: LAKESHA KOCH Rep #:[id number] : 1960 64 From: Keri Michel PCP: Aubrey Lopez FABRICATION OPERATOR-C Status:ADM IN Location: [place] [address] Documented by User: Keri Michel 09/05/24 17:22 [...] Comments to Recommendations by Pharmacy Agree 09/05/24 1472 Keri Gupta Signature (if applicable): 09/05/24 9357 CC: ~ Signed [facility]06-12-2025 Telephone encounter Note* Telephone Encounter - Fang Myers - 09/05/2024 9:31 AM EDT OV scheduled [facility] Work Phone: 1(742) 103-386406-12-2025 Miscellaneous Notes* Telephone Encounter - Fang Myers [...] by: Carmen Patient discharged on 09/04/24 from [facility] to Halfway Facility (SNF) at [facility] Primary Cancer Diagnosis: Colon Admitting Diagnosis: exploratory laparotomy, extensive adhesiolysis, RP mass resection with en blocresection of right fallopian tube, right oophorectomy, small bowel resection with revision of iliaccolic anastomosis, ureteral stent placement and femoral nerve ligation on 08/28 Discharge Summary/SBAR reviewed: Yes Handoff Discussed with Transitional Senior Counsel Commercial: N/A Psychosocial Risk Factors: None If patient discharged to SNF/Rehab Facility, phone call completed to reinforce discharge instructions and follow up: Yes, spoke with Lissy at SNF at [facility] ([phone]). She checked with patient's nurse, they have [...] if needed. Call Disposition: Patient discharged to [facility] facility Patient is not currently on any cancer treatment and needs f/u OV with Dr. Poole to discuss next steps. Kate Castillo RN documented in this encounterHolmes County [facility]06-12-2025 Telephone encounter Note * Telephone Encounter - Kate Castillo RN - 09/05/2024 9:15 AM EDT PSS: please make F/U OV with Dr. Poole 09/25/24 at 220pm. No need to call patient. Judy Castillo RN [facility] Work Phone: 1(191) 375-571706-11-2025 [facility]06-11-2025 Evaluation note* Diagnosis Onset Date Resolution Status Admit Date Anxiety acute September 04 3:29pm Colon cancer acute September 04, 2 025 3:29pm Debility acute September 04 3:29pm Depression acute September 04 3:29pm GERD (gastroesophageal reflu x disease) acute September 04, 2024 3:29pm Osteoporosis acute September 04 2 025 3:29pm Seizure disorder acute August 3:29pm Hypokalemia resolved September 04 3:29pm [facility] Work Phone: 1(902) 179-726706-11-2025 Evaluation note* Diagnosis Onset Date Resolution Status [...] 04 3:29pm Abdominal pain acute October 3:14pm [facility] Work Phone: 1(386) 630-232906-11-2025 Evaluation note* Diagnosis Onset Date Resolution Status Admit Date Anxiety acute September 04 3:29pm Colon cancer acute September 04 025 3:29pm Debility acute September 04 3:29pm Depression acute September 04 3:29pm GERD (gastroesophageal reflu x disease) acute September 04, 2024 3:29pm Osteoporosis acute September 04 025 3:29pm Seizure disorder acute August 3:29pm Hypokalemia resolved September 04 3:29pm Abdominal pain resolved October 3:14pm [facility] Work Phone: 1(260) 916-189006-11-2025 Telephone encounter Note* Telephone Encounter - Kate Castillo RN - 09/04/2024 2:55 PM EDT DISCHARGE CALL BACK Today's date: September 04, 2024 Notified of Pt discharge by: Carmen Patient discharged on 09/04/24 from [facility] to Halfway Facility (SNF) at [facility] Primary Cancer Diagnosis: Colon Admitting Diagnosis: exploratory laparotomy, extensive adhesiolysis, RP mass resection with en blocresection of right fallopian tube, right oophorectomy, small bowel resection with revision of iliaccolic anastomosis, ureteral stent placement and femoral nerve ligation on 08/28 Discharge Summary/SBAR reviewed: Yes Handoff Discussed with Transitional Senior Counsel Commercial: N/A Psychosocial Risk Factors: None If patient discharged to SNF/Rehab Facility, phone call completed to reinforce discharge instructions and follow up: Yes, spoke with Lissy at SNF at [facility] ([phone]). She checked with patient's nurse, they have [...] if needed. Call Disposition: Patient discharged to [facility] facility Patient is not currently on any cancer treatment and needs f/u OV with Dr. Poole to discuss next steps. Kate Castillo, RN [facility]06-11-2025 NoteFaPappas Rehabilitation Hospital for [id number] Telephone encounter Note* Telephone Encounter - Ashutosh Patient Stained Glass JoinerMarilyn Stewart - 09/04/2024 2:07 PM EDT Patient is currently hospitalized. Saw inpatient pall med to discuss symptoms like pain, goc / codestatus. Please offer f/u post discharge [facility]06-11-2025 Miscellaneous Notes* Telephone Encounter - Ashutosh Patient Stained Glass JoinerMarilyn Stewart - 09/04/2024 2:07 PM EDT Patient [...] PCP: Christie Sánchez NP Visit address from [facility]: [address] [place] [address] Reason for consult: Goals of care Referral Source: [place] [facility] Name of Physician who gave the order: TESSA SPRING Other services ordered: Palliative care Primary Insurance Company: Payor: MEDICARE / Plan: MEDICARE A AND B / Product Type: Medicare / Primary Insurance ID Number: [id number] Referral Info Complete. Right click to reselect and continue Referral documented in this encounterHolmes County [facility]06-11-2025 Telephone encounter Note * Telephone Encounter - Tricia Burdick PSS - 09/04/2024 10:56 AM EDT REFERRAL FOR PALLIATIVE CARE AT HOME Date Referral Received: 09/04/24 Date of : 1960 Age: [age] year old Patient has PCP: Christie Sánchez NP Visit address from [facility]: [facility] [address] [facility] [address] Reason for consult: Goals of care Referral Source: [place] Name of Physician who gave the order: TESSA SPRING Other services ordered: Palliative care Primary Insurance Company: Payor: MEDICARE / Plan: MEDICARE A AND B / Product Type: Medicare / Primary Insurance ID Number: [id number] Referral Info Complete. Right click to reselect and continue Referral [facility]06-10-2025 Telephone encounter Note* Telephone Encounter - Olga Maria - 09/03/2024 4:20 PM EDT Date/Time: 09/03/2024 4:20 PM Spoke with LAKESHA KOCH @ phone #: [phone] (Home Phone) - Preferred # for contact: LAKESHA KOCH @ phone #: [phone] (Home Phone) Have you received help from a home care company in the last 60 days? NO Are you agreeable to [facility] services? YES What address will we be seeing you at? [facility] [address] [facility] [address] Do you have any upcoming appointments or things we need to schedule around? NO Do you have a teachable CG or can you manage your care independently? independently Who? N/A [facility] Work Phone: [phone] Miscellaneous Notes* Telephone Encounter - Olga Maria - 09/03/2024 4:20 PM EDT Date/Time: 09/03/2024 4:20 PM Spoke with LAKESHA KOCH @ phone #: [phone] (Home Phone) - Preferred # for contact: LAKESHA KOCH @ phone #: [phone] (Home Phone) Have you received help from a home care company in the last 60 days? NO Are you agreeable to HHC services? YES What address will we be seeing you at? [address] [facility] [address] Do you have any upcoming appointments or things we need to schedule around? NO Do you have a teachable CG or can you manage your care independently? independently Who? N/A documented in this encounterHolmes [facility]06[facility] Telephone encounter Note * Telephone Encounter [...] care clinicians may also obtain orders from [facility] Virtualist Providers Thank you and we would be happy to answer any questions. Olga Kennedy LPN 09/03/2024 1:02 PM [facility] Work Phone: [phone] Miscellaneous Notes* Telephone Encounter - Olga Kennedy [...] care clinicians may also obtain orders from [facility] Virtualist Providers Thank you and we would be happy to answer any questions. Olga Kennedy LPN 09/03/2024 1:02 PM documented in this encounterHolmes County [facility]06-10-2025 [facility] 09-02-2024 NoteWinthrop Community HospitalFwnqqzmy73-76-4664 NoteWinthrop Community HospitalPzigsnow89-32-4640 Note [facility] HospitalJhlyevgv80-25-1025 NoteWinthrop Community HospitalAakxjmjl14-29-1200 NoteWinthrop Community HospitalHcyytsor06-06-2832 NoteWinthrop Community HospitalJptnriqy24-64-8933 [facility] 08-29-2024 NoteWinthrop Community HospitalZhmnrrbz71-63-7856 NoteWinthrop Community HospitalGmqppeck99-38-8740 Note [facility] HospitalNvhpntrt35-35-3072 [facility]06-04-2025 [facility]06-04-2025 [facility]06-04-2025 [facility] 08-22-2024 Telephone encounter Note* Telephone Encounter - Kate Castillo RN - 08/22/2024 11:49 AM EDT DISCHARGE CALL BACK Today's date: August 22, 2024 Notified of Pt discharge by: Carmen Patient discharged on 08/21/24 from [place] [facility] Home Primary Cancer Diagnosis: Colon Admitting Diagnosis: Abdominal Pain Discharge Summary/SBAR reviewed: Yes Handoff Discussed with Transitional Senior Counsel Commercial: N/A Psychosocial Risk Factors: None If patient [...] up with Dr. Poole. Kate Castillo RN [facility] Work Phone: 1(565) 258-866105-29-2025 Miscellaneous Notes* Telephone Encounter - Kate Castillo RN - 08/22/2024 11:49 AM EDT DISCHARGE CALL BACK Today's date: August 22, 2024 Notified of Pt discharge by: Carmen Patient discharged on 08/21/24 from [place] to Home Primary Cancer Diagnosis: Colon Admitting Diagnosis: Abdominal Pain Discharge Summary/SBAR reviewed: Yes Handoff Discussed with Transitional Senior Counsel Commercial: N/A Psychosocial Risk Factors: None If patient [...] Poole. Kate Castillo RN documented in this encounterHolmes County [facility]05-28-2025 [facility] 08-21-2024 [facility]05-26-2025 [facility]05-14-2025 Note [facility]05-12-2025 [facility]05-12-2025 [facility]05[facility]12-2025 [facility] 08-05-2024 [facility]05-07-2025 Telephone encounter Note* Telephone Encounter - Bryanna Gonzalez LPN - 07/31/2024 4:01 PM EDT Patient calling in for a refill. Rx pended. Please send. Bryanna Gonzalez LPN [facility]05-07-2025 Miscellaneous Notes* Telephone Encounter - Bryanna Gonzalez LPN - 07/31/2024 4:01 PM EDT Patient calling in for a refill. Rx pended. Please send. Bryanna Gonzalez LPN documented in this encounterHolmes County [facility]05-07-2025 [facility]05-07-2025 History of Present illness Narrative* Jimmie [...] which included preparing to see the patient, bswr-[id number] patient care, completing clinical documentation, obtaining and/or reviewing separately obtained history, counseling and educating the patient/family/caregiver, ordering medications, arron ts, or procedures, communicating with other HCPs (not separately reported), independently interpreting results (not separately reported), communicating results to the patient/family/caregiver, and care coordination (not separately reported). And review of NCCN guidelines Electronically Signed: Jimmie Poole MD July 31, 2024 documented in this encounterHolmes County [facility]04-28-2025 Telephone encounter Note * Telephone Encounter - Kate Castillo RN - 07/22/2024 12:[address] Poole aware and will send in Rx for Oxycodone. Judy Castillo RN [facility] Work Phone: 1(782) 930-884504-28-2025 Miscellaneous Notes* Telephone Encounter - Kate Castillo RN - 07/22/2024 12:[address] Poole aware and will send in Rx for Oxycodone. Judy Castillo RN * Telephone Encounter - [...] provided. Kate Castillo RN documented in this encounterHolmes County [facility]04-28-2025 Telephone encounter Note * Telephone Encounter - aKte Castillo RN - 07/22/2024 12:44 PM EDT [...] planned for this Monday. Judy Castillo RN [facility]04-28-2025 Telephone encounter Note* Telephone Encounter - Bettye Flores - 07/22/2024 12:35 PM EDT Patient called back and was transferred to REAL Gutierrez [facility]04-28-2025 Telephone encounter Note* Telephone Encounter - Kate Castillo RN - 07/22/2024 11:39 AM EDT Call to patient, message left to call me back and phone/contact number provided. Kate Castillo RN [facility]04-25-2025 [facility]04-24-2025 Note [facility]04-22-2025 Telephone encounter Note* Telephone Encounter - Kate Castillo RN - 07/16/2024 2:03 PM EDT Patient scheduled bx of abdominal mass per Dr. Spring. Scheduled for 07/24/24. See OV note 07/15/24. Judy Castillo RN [facility] Work Phone: 1(200) 370-318404-22-2025 Miscellaneous Notes* Telephone Encounter - Kate Castillo [...] front door. Pt verbalizedshe was going to [facility]. Anastasiya Garces RN documented in this encounterHolmes County [facility]04-21-2025 NoteMi[facility]04-21-2025 History of Present illness Narrative* Tessa Spring MD - 07/15/2024 4:25 PM EDT Images from the original note were not included. Established Patient Visit REASON FOR VISIT Follow up imaging I have communicated my name and active licensure. The patient's identity and physical location wereverified at the time of this visit. Either the patient or their legal public utilities sales representative has been informed of the risks [...] and nausea [facility] to receive conservative management with worship of bowel function. On follow-up visits, the drain was managed expectantly and was eventually removed a month ago. During this course, the patient experienced significant failure to thrive and weight loss. She eventually underwent an ileocecectomy with ia on 01/04/2024 that showed the following on [...] meals. (Patient not taking: Reported on 04/16/2024) 73982 mL 0 Food Supplement, Lactose-Free (ENSURE HIGH PROTEIN) liqd Take 237 mL by mouth two times a day. 2 times daily between meals 49720 mL 0 Food Supplement, Lactose-Free (ENSURE CLEAR) [...] requiring medication, no history of angina, CHF, [place], cardiac surgery or stents. Denies rest pain, [...] Level: 5 - High Tessa Spring MD [facility] July 15, 2024 documented in this encounterHolmes County [facility]04-18-2025 Telephone encounter Note * Telephone Encounter - Kate Castillo RN - 07/12/2024 10:19 AM EDT Call to patient, message left to call me back and phone/contact number provided. Judy Castillo RN [facility]04-18-2025 Telephone encounter Note* Telephone Encounter - Kate Castillo RN - 07/12/2024 10:19 AM EDT Images from the original note were not included. [facility]04-18-2025 Telephone encounter Note* Telephone Encounter - [...] discussing plan with him. Judy Castillo RN [facility]04-17-2025 Telephone encounter Note* Telephone Encounter - [...] evaluation. Pt. Voiced understanding. Che Cortes LPN [facility]04-16-2025 Telephone encounter Note* Telephone Encounter - [...] front door. Pt verbalizedshe was going to [facility]. Anastasiya Garces RN [facility]04-10-2025 Telephone encounter Note* Telephone Encounter - Amber Valverde LISW - 07/04/2024 3:45 PM EDT SOCIAL WORK FOLLOW UP NOTE: [facility] Date of service: July 04, 2024 Lakesha [...] in Care Team tab: Yes ANG Peterson [facility]04-10-2025 Miscellaneous Notes* Telephone Encounter - Amber Valverde LISW - 07/04/2024 3:45 PM EDT SOCIAL WORK FOLLOW UP NOTE: CANCER CENTER Date of service: July 04, 2024 Lakesha [...] up as needed F/U APPOINTMENT: PRN Assigned SW listed in Care Team tab: Yes ANG Peterson documented in this encounterHolmes County [facility]04-10-2025 Telephone encounter Note * Telephone Encounter - Bryanna Gonzalez LPN - 07/04/2024 11:23 AM EDT Patient stopped in office to let us know she started her Xeloda yesterday. Patient's labs/OV rescheduled to 07/19/2024. Bryanna Gonzalez LPN [facility]04-10-2025 Miscellaneous Notes* Telephone Encounter - Bryanna [...] medication. Please advise patient. documented in this encounterHolmes County [facility]04-08-2025 Telephone encounter Note * Telephone Encounter [...] scan. Patient understanding and thankful for plan. [facility]04-08-2025 Miscellaneous Notes* Telephone Encounter - Rema [...] concerns regarding abdominal pain return call to [phone] documented in this encounterHolmes County [facility]04-08-2025 Telephone encounter Note * Telephone Encounter - Brittany Mariscal - 07/02/2024 9:38 AM EDT Patient called and left a message regarding post operative 12/2023 Diagnostic laparoscopy Exploratory laparotomy Drainage of intraabdominal abscess Ileocecectomy End-to-side ileo-ascending hand sawn anastomosis Bilateral TAP blocks (transversus abdominis block with guidance) and concerns regarding abdominal pain return call to [phone] [facility] Work Phone: 1(344) [phone] Telephone encounter Note* Telephone Encounter - Ellyn Zhang RN - 07/02/2024 9:31 AM EDT Patient instructed to call our office once she has a delivery date for medication so labs/OV can beadjusted to her off week. Ellyn Zhang RN [facility]04-08-2025 Telephone encounter Note* Telephone Encounter - Loni EfraínFang - 07/02/2024 9:19 AM EDT Patient called [...] she will start medication. Please advise patient. [facility] Work Phone: 1(176) 358-153504-01-2025 History of Present illness Narrative* Jag Lenz [...] Dosing Weight: 41 kg Estimated kilocalorie needs: 0143-8899 kilocalories determined by 30-35 kcal/kg Estimated protein [...] meals. (Patient not taking: Reported on 04/16/2024) 26927 mL 0 Food Supplement, Lactose-Free (ENSURE HIGH PROTEIN) liqd Take 237 mL by mouth two times a day. 2 times daily between meals 79455 mL 0 Food Supplement, Lactose-Free (ENSURE CLEAR) liqd Take 237 mL by mouth daily after lunch. PM Snack 7110 mL 0 No current facility-administered medications for this visit. Need for Follow up: as needed Referred/Supervised by: Adrienne Bahena MNT Billing Type: Initial Assess/15 min 2 units Signed by: Jag Lenz RD, LD documented in this encounterHolmes County [facility]04-01-2025 [facility]Mi[facility]03-24-2025 NoteMi[facility]03-24-2025 History of Present illness Narrative* Adrienne [...] to correlate with current findings. Adrienne Bahena APRN.AQUATIC CENTRE MANAGER I spent a total of 30 minutes on the date of the service which included preparing to see the patient, [id number] patient care, completing clinical documentation, obtaining and/or [...] evaluation of this patient. documented in this encounterHolmes County [facility]03-20-2025 NoteMi[facility]03-05-2025 Telephone encounter Note* Telephone Encounter - Bryanna Gonzalez LPN - 05/29/2024 4:19 PM EST Advised patient to contact her PCP for medication. Patient agreeable. Bryanna Gonzalez LPN [facility]03-05-2025 Miscellaneous Notes* Telephone Encounter - Bryanna [...] Please adise. Mayda Weems documented in this encounterHolmes County [facility] Hospital03-05-2025 Telephone encounter Note * Telephone Encounter - Mayda Weems - 05/29/2024 11:51 AM EST Pt stopped in and is requesting a persription for Valium for a dental appt on 06/18 for anxity, states it is very expensive to get it from her dentist. Please adise. Mayda Weems [facility]03-04-2025 Telephone encounter Note* Telephone Encounter - Kate Castillo RN - 05/28/2024 9:35 AM EST Form faxed to [facility] and then sent to scanning. Judy Castillo RN [facility] Work Phone: [phone] 820-421903-04-2025 Miscellaneous Notes* Telephone Encounter - Kate Castillo RN - 05/28/2024 9:35 AM EST Form faxed to [facility] and then sent to scanning. Judy Castillo RN * Telephone Encounter - Kate Castillo RN - 05/27/2024 3:24 PM EST Dillan justin Crowder, aware of message. questions answered. She [...] also. This will be faxed back to [facility]. Attempted to call patient to advise above. No answer. Message left with general message regarding above and to call back in to discuss. Judy Castillo RN documented in this encounterHolmes County [facility]03-03-2025 Telephone encounter Note * Telephone Encounter [...] swallow. Reviewed upcoming appointments. Judy Castillo RN [facility]02-28-2025 Telephone encounter Note* Telephone Encounter - Kate Castillo RN - 05/24/2024 1:[address] Poole received form for dental clearance for tooth extraction. Patient ok to have extraction at the end of week for Xeloda and obtain a CBC prior also. This will be faxed back to [facility]. Attempted to call patient to advise above. No answer. Message left with general message regarding above and to call back in to discuss. Judy Castillo RN [facility]02-26-2025 History of Present illness Narrative* Jayjay (Bread Baker)Tete - 05/22/2024 1:09 PM EST [facility] [...] been reviewed prior to dispensing the medication. Piping Supervisor Assessment Patient confirmed: Yes Med/dose confirmed: Yes Supplies needed: No supplies needed Missed doses: No Estimated days supply on hand: 0 Next cycle/dose due: 05/29/24 Copay amount: 7.68 Copay form of payment: Credit card on file Payment confirmed: Yes Delivery method: FedEx Signature required: Waived on patient request Delivery address: [address] [place] [address] Delivery date: 05/28/24 Questions or concerns for [...] facility-administered medications on file prior to visit. 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 Est. Tx Plan Start Date: No information available Estimated Start Date Info: Per Dr. Poole's discretion Est. Estimated Treatment Duration: ~3-6 months, monitor Tete Ro ([employer]) documented in this encounterHolmes County [facility]02-26-2025 NoteMi[facility]02-26-2025 [facility]02-17-2025 Instructions* Patient Instructions* Fe Edmond APRN.AQUATIC CENTRE MANAGER - 05/13/2024 6:45 PM EST Images from [...] small number of people the nodule may electrode turner and finisher to be an early cancer. Your doctor [...] cancer? Fewer than 5% of all nodules electrode turner and finisher to be cancer What if my nodule [...] smoking. THAT IS WRONG. documented in this encounterHolmes County [facility]02-17-2025 NoteMi[facility]02-17-2025 History of Present illness Narrative* Fe Edmond APRN.CNP - 05/13/2024 11:48 AM EST Images from the original note were not included. [facility] INCIDENTAL LUNG NODULE PROGRAM (Follow Up) [...] Lung Nodule Surveillance Lung Nodule Program Location: [facility] History of Present Illness Lakesha Koch [...] (89 lb 1.1 oz) Modified Medical Research Saxman Dyspnea Scale (MMRC) I only get breathless [...] DATE OF EXAM: May 03 2024 11:36AM [facility] 0541 - CT CHEST WO IVCON / [...] proteinaceous cyst, continued interval surveillance is recommended. Tmd Teacher Assistant: PSCB Transcribe Date/Time: May 06 2024 6:25A Dictated by : BRIANA PETIT MD This examination was interpreted and the report reviewed and electronically signed by: BRIANA PETIT MD on May 06 2024 4:28PM EST Impression / Recommendations To optimize physician communication via the electronic health record, the Impression & Recommendations section has been placed at the beginning of this note. Fe Edmond APRN.AQUATIC CENTRE MANAGER Pulmonary & Critical Care Medicine May 13, 2024 11:48 AM documented in this encounterHolmes County [facility]02-11-2025 NoteMi[facility]02-11-2025 History of Present illness Narrative* Marisa Monaco HUC - 05/07/2024 12:04 PM EST Follow Up Diagnosis: Lung Nodule Recommendation: CT Scan Follow up Date: 05/13/2024 Follow-Up Scheduled: Yes Pulmonary Follow-Up Type: Lung Nodule Surveillance Enrolled in Lung Nodule program: Yes Lung Nodule Program Location: [facility] CT completed documented in this encounterHolmes County [facility]02-10-2025 History of Present illness Narrative* Adrienne [...] to correlate with current findings. Adrienne Bahena APRN.AQUATIC CENTRE MANAGER I spent a total of 20 minutes on the date of the service which included preparing to see the patient, zuyc-[id number] patient care, completing clinical documentation, obtaining and/or [...] evaluation of this patient. documented in this encounterHolmes County [facility]02-10-2025 NoteMi[facility]02-07-2025 History of Present illness Narrative* Dulce Zhou, RT(R) - 05/03/2024 11:00 AM EST Radiology [...] PATIENT PRESENTS WITH AN IMPLANTABLE OR ATTACHED NEUROPSYCHOLOGY DIVISION CHIEF: No RADIOLOGY DEPARTMENT: CT; Exam(s) Completed: Chest PERIPHERAL IV DATA: Not applicable SIGNED BY: RT Oscar(R) May 03, 2024 2:45 PM documented in this encounterHolmes County Joel [facility]02-07-2025 NoteMi[facility]2025 NoteMi[facility]01-21-2025 History of Present illness Narrative* Adrienne [...] reports feeling ok today. ED visit to [facility] last week for dehydration. N/V/D. She notes last two cycles she has more N/V towards the end of her second week on xeloda. Nausea daily about 2 hours after taking xeloda. This has improved some once she started taking antiemetics scheduled. Had more nausea with vomiting, several times last week. Zofran helped a little, did better with ODTin ED. Diarrhea. Lipan dehydtrate Denies bleeding. No neuropathy. No peeling [...] to correlate with current findings. Adrienne Bahena APRN.AQUATIC CENTRE MANAGER I spent a total of 30 minutes on the date of the service which included preparing to see the patient, iocp-ma-mgmq patient care, completing clinical documentation, obtaining and/or [...] evaluation of this patient. documented in this encounterHolmes County [facility]01-21-2025 NoteMi[facility]01-16-2025 NoteMi[facility]01-16-2025 History of Present illness Narrative* Tessa Spring MD - 04/11/2024 10:59 AM EST Images from the original note were not included. Established Patient Visit REASON FOR VISIT Follow up - CT results I have communicated my name and active licensure. The patient's identity and physical location wereverified at the time of this visit. Either the patient or their legal public utilities sales representative has been informed of the risks [...] and nausea which [facility] she continued to receive conservative management with worship of bowel function. On follow-up visits, the drain was managed expectantly and was eventually removed a month ago. During this course, the patient experienced significant failure to thrive and weight loss. She eventually underwent an ileocecectomy with ia on 01/04/2024 that showed the following on [...] mouth three times a day with meals. 49356 mL 0 Food Supplement, Lactose-Free (ENSURE HIGH PROTEIN) liqd Take 237 mL by mouth two times a day. 2 times daily between meals 41501 mL 0 Food Supplement, Lactose-Free (ENSURE CLEAR) [...] requiring medication, no history of angina, CHF, [place], cardiac surgery or stents. Denies rest pain, [...] Level: 4 - Moderate Tessa Spring MD [facility] [place] [facility] April 11, 2024 [...] is noted. CT ABD/PEL W IVCON (Order #[id number]) on 03/19/2024 - Order Result History Report documented in this encounterHolmes County Joel [facility] Hospital01-16-2025 NoteMi[facility]01-15-2025 History of Present illness Narrative* Jayjay (Bread BakerTete Ruggiero - 04/10/2024 5:24 PM EST [facility] [...] been reviewed prior to dispensing the medication. Piping Supervisor Assessment Patient confirmed: Yes Med/dose confirmed: Yes Supplies needed: No supplies needed Missed doses: Yes Count of missed doses: 4 Reason for missed doses: she was nauseated Estimated days supply on hand: 3 Next cycle/dose due: 04/17/24 Copay amount: 44.8 Copay form of payment: Credit card on file Payment confirmed: Yes Delivery method: FedEx Signature required: Waived on patient request Delivery address: [address] [place] [id number] Delivery date: 04/16/24 Questions or concerns for [...] facility-administered medications on file prior to visit. 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 Est. Tx Plan Start Date: No information available Estimated Start Date Info: Per Dr. Poole's discretion Est. Estimated Treatment Duration: ~3-6 months, monitor Tete Ro ([employer]) documented in this encounterHolmes County [facility]01-15-2025 NoteMi[facility]01-13-2025 Telephone encounter Note* Telephone Encounter - Nae Devlin, Research Coordinator - 04/08/2024 2:24 PM EST IRB# [id number]: Vascular events in patients undergoing same-day nonCardiac surgery - [facility] PI: Corrina Benito MD, JAROD, FASA. Outcomes Research Department. [facility] [place]. [facility]. This is a research study note. [...] is now complete. Nae Devlin Outcomes Research [facility]01-13-2025 Miscellaneous Notes* Telephone Encounter - Nae [place] Research Coordinator - 04/08/2024 2:24 PM EST IRB# [id number]: Vascular events in patients undergoing same-day nonCardiac surgery - [place] PI: Corrina Benito MD, JAROD, VILMA. Outcomes Research Department. Anesthesia [place]. [facility]. This is a research study note. [...] is now complete. Nae [facility] Outcomes Research [facility] documented in this encounterHolmes County [facility]01-13-2025 NoteMi[facility]01-13-2025 History of Present illness Narrative* Jeremiah Adame MD - 04/08/2024 2:00 PM EST Patient [...] for IV fluid. She will go to [facility] ER for further treatment. Jeremiah Adame MD documented in this encounterHolmes County [facility]01-09-2025 Telephone encounter Note * Telephone Encounter - Fe Edmond APRN.CNP - 04/04/2024 3:03 PM EST Pt notified that we will continue to follow up on the lung nodule per Dr. Poole's request. Pt is agreeable. [facility]01-09-2025 Miscellaneous Notes* Telephone Encounter - Fe Edmond APRN.CNP - 04/04/2024 3:03 PM EST Pt notified that we will continue to follow up on the lung nodule per Dr. Poole's request. Pt is agreeable. * Telephone Encounter [...] placed. Fe Edmond APRN.LUZMA documented in this encounterHolmes County [facility]12-30-2024 Telephone encounter Note * Telephone Encounter - Christina Leach - 03/25/2024 3:19 PM EST Spoke with patient and scheduled Christina Leach [facility]12-30-2024 Miscellaneous Notes* Telephone Encounter - Christina [...] comply. Kate Castillo RN documented in this encounterHolmes County [facility]12-30-2024 Telephone encounter Note * Telephone Encounter - Kate Castillo RN - 03/25/2024 2:35 PM EST Discussed with Adrienne Bahena CNP. Labs/OV in 4 weeks ( around 04/19/24) Judy Castillo RN [facility] Work Phone: [phone] Telephone encounter Note* Telephone Encounter - Kate [...] if unable to comply. Kate Castillo RN [facility]12-30-2024 Telephone encounter Note* Telephone Encounter - Pepe Pablo - 03/25/2024 12:13 PM EST For documentation purpose only- Called patient, left a detail message on phone and mychart. Thank you [facility]12-30-2024 Miscellaneous Notes* Telephone Encounter - Pepe Pablo - 03/25/2024 12:13 PM EST For documentation purpose only- Called patient, left a detail message on phone and mychart. Thank you documented in this encounterHolmes County [facility]12-26-2024 History of Present illness Narrative* Jayjay (Bread Baker)Tete - 03/21/2024 1:23 PM EST [facility] [...] been reviewed prior to dispensing the medication. Piping Supervisor Assessment Patient confirmed: Yes Med/dose confirmed: Yes Supplies needed: No supplies needed Missed doses: No Estimated days supply on hand: 0 Next cycle/dose due: 03/27/24 Copay amount: 15.55 Copay form of payment: Credit card on file Payment confirmed: Yes Delivery method: FedEx Signature required: Waived on patient request Delivery address: [address] [facility] [address] Delivery date: 03/26/24 Questions or concerns for [...] facility-administered medications on file prior to visit. 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 Est. Tx Plan Start Date: No information available Estimated Start Date Info: Per Dr. Poole's discretion Est. Estimated Treatment Duration: ~3-6 months, monitor Tete Ro ([employer]) documented in this encounterHolmes County [facility]12-26-2024 NoteMiami Valley Hospital12-24-2024 Telephone encounter Note* Telephone Encounter - [...] expected 04/27/2024. Order placed. Fe Edmond APRN.CNP [facility]12-24-2024 Note* Addendum Note - Fe Edmond APRN.CNP - 03/19/2024 12:02 PM ESTAddended by: FE EDMOND on: 03/19/2024 12:02 PM Modules accepted: Orders [facility]12-24-2024 Miscellaneous Notes* Addendum Note - Fe Edmond APRN.CNP - 03/19/2024 12:02 PM ESTAddended by: FE EDMOND on: 03/19/2024 12:02 PM Modules accepted: Orders documented in this encounterHolmes County [facility]12-24-2024 [facility]12-24-2024 History of Present illness Narrative* Fe Edmond APRN.CNP - 03/19/2024 10:52 AM EST Follow Up Diagnosis: Lung Nodule Recommendation: CT Scan Follow up Date: 04/29/2024 Follow-Up Scheduled: No Pulmonary Follow-Up Type: Lung Nodule Surveillance Lung Nodule Program Location: [facility] documented in this encounterHolmes County [facility]12-20-2024 History of Present illness Narrative* Dulce Zhou RT(R) - 03/15/2024 2:20 PM EST Radiology Service [...] PATIENT PRESENTS WITH AN IMPLANTABLE OR ATTACHED NEUROPSYCHOLOGY DIVISION CHIEF: No ALLERGIES: Reviewed and unchanged CONTRAST ALLERGY: [...] 2024 TIME: 2:57 PM documented in this encounterHolmes County [facility] Hospital12-20-2024 NoteMiami Valley Hospital12-12-2024 Note* Addendum Note - Tessa Spring MD - 03/07/2024 2:33 PM ESTAddended by: TESSA SPRING on: 03/07/2024 02:33 PM Modules accepted: Level of Service [facility]12-12-2024 Miscellaneous Notes* Addendum Note - Tessa Spring MD - 03/07/2024 2:33 PM ESTAddended by: TESSA SPRING on: 03/07/2024 02:33 PM Modules accepted: Level of Service documented in this encounterHolmes County [facility]12-12-2024 NoteMi[facility] Valley Hospital12-12-2024 History of Present illness Narrative* Tessa [...] and nausea which [facility] she continued to receive conservative management with worship of bowel function. On follow-up visits, the drain was managed expectantly and was eventually removed a month ago. During this course, the patient experienced significant failure to thrive and weight loss. She eventually underwent an ileocecectomy with ia on 01/04/2024 that showed the following on [...] mouth three times a day with meals. 65400 mL 0 Food Supplement, Lactose-Free (ENSURE HIGH PROTEIN) liqd Take 237 mL by mouth two times a day. 2 times daily between meals 87635 mL 0 Food Supplement, Lactose-Free (ENSURE CLEAR) [...] requiring medication, no history of angina, CHF, [place], cardiac surgery or stents. Denies rest pain, [...] distended. Incision healed. No guarding or rebound. Agricultural Commodities Grader present: Yes ASSESSMENT 64-year-old female status post [...] Level: 4 - Moderate Tessa Spring MD [facility] [place] [facility] / [facility] March 07, 2024 * David Velazquez Letha - 03/07/2024 10:30 AM EST New/Est pt: [...] additional findings. CT CHEST WO IVCON (Order #[id number]) on 02/01/2024 - Order Result History Report documented in this encounterHolmes County [facility] Hospital12-12-2024 Instructions* Patient Instructions* David Velazquez - 03/07/2024 10:[address] Spring has placed an order for a CT scan of your Abdomen and Pelvis. To schedule this appointment within the [facility], please call [phone]. documented in this encounterHolmes County [facility]12-12-2024 NoteMiami [facility]12-05-2024 Telephone encounter Note* Telephone Encounter - Estee Donnelly - 02/29/2024 12:30 PM EST Called and scheduled as directed [facility]12-05-2024 Miscellaneous Notes* Telephone Encounter - Estee Donnelly - 02/29/2024 12:30 PM EST Called and scheduled as directed * Telephone Encounter - Kate Castillo RN - 02/29/2024 10:53 AM EST Patient has a oncology nutrition consult order that needs scheduled. thank you- Judy Castillo RN documented in this encounterHolmes County [facility]12-05-2024 Telephone encounter Note * Telephone Encounter - Kate Castillo RN - 02/29/2024 10:53 AM EST Patient has a oncology nutrition consult order that needs scheduled. thank you- Judy Castillo RN [facility] Work Phone: [phone] 106-246112-04-2024 Telephone encounter Note* Telephone Encounter - Kate Castillo RN - 02/28/2024 4:05 PM EST Discussed sleep issues with Dr. Poole and he recommends trying Melatonin. Judy Castillo RN Call to patient, states she has tried Melatonin and it gives me nightmares She will continue to use Tylenol PM as needed. Judy Castillo RN [facility] Work Phone: [phone] Miscellaneous Notes* Telephone Encounter - Kate Castillo [...] provided. Kate Castillo RN documented in this encounterHolmes County [facility]12-04-2024 Telephone encounter Note * Telephone Encounter [...] if unable to comply. Kate Castillo RN [facility]12-04-2024 History of Present illness Narrative* Jayjay (Bread Baker)Tete - 02/28/2024 2:25 PM EST [facility] [...] been reviewed prior to dispensing the medication. Piping Supervisor Assessment Patient confirmed: No Med/dose confirmed: No Supplies needed: No supplies needed Missed doses: No Estimated days supply on hand: 0 Next cycle/dose due: 03/06/24 Copay amount: 13.95 Copay form of payment: Credit card on file Payment confirmed: Yes Delivery method: FedEx Signature required: Waived on patient request Delivery address: [address] [place] [id number] Delivery date: 03/05/24 Questions or concerns for [...] facility-administered medications on file prior to visit. 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 Est. Tx Plan Start Date: No information available Estimated Start Date Info: Per Dr. Poole's discretion Est. Estimated Treatment Duration: ~3-6 months, monitor Tete Ro ([employer]) documented in this encounterHolmes County [facility]12-04-2024 NoteMi[facility]11-27-2024 Telephone encounter Note* Telephone Encounter - Kate Castillo RN - 02/21/2024 9:32 AM EST ORAL ANTI-CANCER AGENTS FOLLOW-UP PHONE CALL/VISIT Patient is on day 8 of Capecitabine (Xeloda) for Colon / Rectal Cancer. Call to patient, message left to call me back and phone/contact number provided. Kate Castillo RN [facility]11-22-2024 NoteMiami Valley Hospital11-22-2024 History of Present illness Narrative* AbramAmber LISW - 02/16/2024 3:25 PM EST PSYCHOSOCIAL SCREENING ASSESSMENT Date of Service: February 15, 2024 Lakesha Koch is a 64 year old female being seen for initial social work assessment. Diagnosis: Adenocarcinoma of cecum New Primary Oncologist: Jimmie Poole MD Radiation Oncologist: DELMY Today's visit includes: self/patient Family History of Cancer: Lung cancer (mother), Prostate cancer (father), Melanoma (sister), Breastcancer (paternal grandmother) SUPPORT NETWORK: Social Connections: Not on file Marital status: Single Parent(s): Child/Children: No youth care worker arrangements needed: Na Siblings: Yes but none local - [facility] in [place] Grandchild(kellie): none Home Health Provider: Delmy Community Services: DELMY Kenzie Identified: No Scientologist/Spirituality: Unknown Are these practices or beliefs that may affect or influence treatment? No EMPLOYMENT/FINANCIAL/HEALTH INSURANCE: Employment: Pt is unemployed and reports she has been living off her savings since the beginning ofDecember when she stopped working d/t illness. Income source: None incoming at the moment Insurance: Medicare only Prescription coverage: Yes Is the patient appropriate for referral to [facility] COBRA Assistance program? No Financial Distress: Yes. If yes, what assistance is needed? Utilities - Pt has also applied for Social Security Disability approximately 3-4 weeks ago. : No FOOD INSECURITY Within the past year, [...] August 2023 Health Care Durable Power of Hot Roll Laminator: Yes Scanned into EPIC: Yes, August, Guardianship: No Scanned into EPIC:NA Reasons Advanced Directives were not Addressed: NA PATIENT/FAMILY DECISION MAKERS: 1st: Jeanette Garvin (sister) PH: [phone] 2nd: Brittney Koch PH: [phone] 3rd: Calli Alfaro PH: [phone] AD forms completed and scanned into pt's [...] a type of support/mentoring program External: [facility] CLINICAL IMPRESSION: Lakesha is a 64 year [...] children, and has family who lives in [place]. She reports she has some friends she [...] tab: Yes ANG Peterson documented in this encounterHolmes County [facility]11-22-2024 Telephone encounter Note * Telephone Encounter [...] the pain right now (scale of 1-10)? 6-10. How do you describe the pain: pressure, [...] send in an antiemetic to [facility]. Patient instructed to take 1 hour prior to taking xeloda. Ellyn Zhang RN February 16, 2024 9:37 AM [facility]11-22-2024 Miscellaneous Notes* Telephone Encounter - Ellyn [...] send in an antiemetic to [facility]. Patient instructed to take 1 hour prior to taking xeloda. Ellyn Zhang RN February 16, 2024 9:37 AM documented in this encounterHolmes County [facility]11-19-2024 Telephone encounter Note * Telephone Encounter - Christina Leach - 02/13/2024 4:25 PM EST Spoke with patient and scheduled as directed. Christina Leach [facility]11-19-2024 Miscellaneous Notes* Telephone Encounter - Christina Leach - 02/13/2024 4:25 PM EST Spoke with patient and scheduled as directed. Christina Leach * Telephone Encounter - Kate Castillo RN - 02/13/2024 3:24 PM EST PSS: Please call patient to schedule CBC/CMP/OV with Dr. Poole in 4 weeks. Judy Castillo RN documented in this encounterHolmes County [facility]11-19-2024 Telephone encounter Note * Telephone Encounter - Kate Castillo RN - 02/13/2024 3:30 PM EST See other phone encounter. Judy Castillo RN [facility] Work Phone: [phone]) 167-546811-19-2024 Miscellaneous Notes* Telephone Encounter - Kate Castillo RN - 02/13/2024 3:30 PM EST See other phone encounter. Judy Castillo RN * Telephone Encounter - Fang Myers - 02/12/2024 3:30 PM EST Patient states she is expecting to receive her chemo medication tomorrow and is asking if there areinstructions before she starts. documented in this encounterHolmes County [facility]11-19-2024 Telephone encounter Note * Telephone Encounter - Kate Castillo RN - 02/13/2024 3:24 PM EST PSS: Please call patient to schedule CBC/CMP/OV with Dr. Poole in 4 weeks. Judy Castillo RN [facility] Work Phone: 1([phone]) 799-732611-19-2024 Telephone encounter Note* Telephone Encounter - Kate Castillo RN - 02/13/2024 3:19 PM EST ORAL ANTI-CANCER AGENTS EDUCATION patient called today for oral medication education of Xeloda for Colon / Rectal Cancer Anticipated/Scheduled start date: 02/14/24 States she had lab work at [facility] last week and will have results faxed [...] teaching topics as needed. Kate Castillo RN [facility] Work Phone: 1(930) 768-173611-19-2024 Miscellaneous Notes* Telephone Encounter - Kate Castillo RN - 02/13/2024 3:19 PM EST ORAL ANTI-CANCER AGENTS EDUCATION patient called today for oral medication education of Xeloda for Colon / Rectal Cancer Anticipated/Scheduled start date: 02/14/24 States she had lab work at [facility] last week and will have results faxed [...] needed. Kate Castillo RN documented in this encounterHolmes County [facility]11-19-2024 Telephone encounter Note * Telephone Encounter - Brianne Schilling MSW - 02/13/2024 11:12 AM EST Patient spoke with this primary care SW. Patient appears to go to our oncology dept asking aboutfinancial assistance resources for help with bills. This Sw asked if patient were looking to speak with ZanaOncology SW. Patient noted that she is struggling with all types of bills. This Sw noted it may be more beneficial to speak with Zana as she mayhave more financial resources specific to oncology patients. This Sw will forward message to ZanaOncology, SW asking that Zana reach out to patient. [facility]11-19-2024 Miscellaneous Notes* Telephone Encounter - Brainne Schilling MSW - 02/13/2024 11:12 AM EST Patient spoke with this primary care SW. Patient appears to go to our oncology dept asking aboutfinancial assistance resources for help with bills. This Sw asked if patient were looking to speak with ZanaOncology SW. Patient noted that she is struggling with all types of bills. This Sw noted it may be more beneficial to speak with Zana as she mayhave more financial resources specific to oncology patients. This Sw will forward message to ZanaOncology, SW asking that Zana reach out to patient. documented in this encounterHolmes County [facility]11-18-2024 Telephone encounter Note * Telephone Encounter - Fang Myers - 02/12/2024 3:30 PM EST Patient states she is expecting to receive her chemo medication tomorrow and is asking if there areinstructions before she starts. [facility] Work Phone: [phone]) 106-689511-15-2024 Telephone encounter Note* Telephone Encounter - Cathy Macias RPh - 02/09/2024 3:09 PM EST Patient was contacted to discuss cost of capecitabine, unfortunately medication is unaffordable. Currently no grants are open and no PAP program for Xeloda. [employer] has an internal [place] that patient can apply for. Prescirption pended to [employer]. Office has been included on email to [employer] as well, they may ask for some additional info from office Cathy Macias PharmD, CHELSIE, BCOP Clinical Pharmacist, Oncology [facility] P: , F: Pool: P [facility] Pool #: [id number] [facility]11-15-2024 Miscellaneous Notes* Telephone Encounter - Cathy Macias RPh - 02/09/2024 3:09 PM EST Patient was contacted to discuss cost of capecitabine, unfortunately medication is unaffordable. Currently no grants are open and no PAP program for Xeloda. [employer] has an internal [place] that patient can apply for. Prescirption pended to [employer]. Office has been included on email to [employer] as well, they may ask for some additional info from office Cathy Macias PharmD, SARITHACP, BCOP Clinical Pharmacist, Oncology [facility] P: , F: Pool: P [facility] Pool #: [id number] documented in this encounterHolmes County [facility]11-11-2024 History of Present illness Narrative* Zorzi ([employer])Tete - 02/05/2024 9:32 AM EST [facility] received prescription(s) for capecitabine [address] Poole's office. Benefits investigation was conducted, indicating that a prior authorization is not required at this time per patient's plan with Medicare PART B. Prescriptions will now be processed through [facility] for determination of next steps. Tete Ro ([employer]) Addendum February 05, 2024 2:30 PM : Patient does NOT have a supplement, copay is $77.76. Noted coverage under HCAP in chart. If financially toxic may be able to suggest 5-fu. Cathy Macias, PharmD, BCACP, BCOP Clinical Pharmacist, Oncology [facility] P: , F: Pool: P [facility] Pool #: [id number] documented in this encounterHolmes County [facility]11-11-2024 NoteMi[facility]11-11-2024 NoteMi[facility]11-11-2024 NoteMi[facility]11-09-2024 Miscellaneous Notes* SN Agency Yulia Schwartz RN - 02/03/2024 9:42 AM EST SITUATION: [facility] discharge visit completed today. only patient [...] for additional medical questions/concerns. documented in this encounterHolmes County [facility]11-09-2024 Patient's home Note* SN Agency DC - Yulia Xie RN - 02/03/2024 9:42 AM EST SITUATION: [facility] agency discharge visit completed today. only patient [...] with Dr. Moss for additional medical questions/concerns. [facility] Work Phone: 1([phone]) 591-251311-08-2024 Telephone encounter Note* Telephone Encounter - David Velazquez - 02/02/2024 11:31 AM EST Phoned patient but no answer. Left VM letting patient know Robaxin order was signed and sent to [facility]. Provided callback number if she has any questions. David WELLSN Senior Counsel Commercial for Dr. Hutchison and Bryanna Luna CNP Covering for Dr. Spring [facility]11-08-2024 Miscellaneous Notes* Telephone Encounter - David Velazquez - 02/02/2024 11:31 AM EST Phoned patient but no answer. Left VM letting patient know Robaxin order was signed and sent to [facility]. Provided callback number if she has any questions. David WELLSN Senior Counsel Commercial for Dr. Hutchison and Bryanna Luna CNP Covering for Dr. Spring * Telephone Encounter [...] at this time. David Velazquez RN BSN Senior Counsel Commercial for Dr. Hutchison and Bryanna Luna, AQUATIC CENTRE MANAGER Covering for Dr. Spring * Telephone Encounter - David Velazquez - 01/31/2024 1:58 PM EST Phoned patient, but no answer. Left VM. David Velazquez RN BSN Senior Counsel Commercial for Dr. Hutchison and Bryanna Luna, AQUATIC CENTRE MANAGER Covering for Dr. Spring * Telephone Encounter - Yanna Rousseau - 01/31/2024 11:50 AM EST Patient called, she is having pain at her surgical site. Her surgery was on 01/02. Colectomy partial open w/ ileocolostomy. Please call her at [phone], thank you! documented in this encounterHolmes County [facility]11-08-2024 Miscellaneous Notes* CARE COORDINATION - Joe Williamson RN - 02/02/2024 11:10 AM EST Patient called per this nurse. Patient was to be seen today Mon02/02/24. However, due to staffing, this Nurse contacted patient tosee if she would be willing to be seen Sat 11/9 instead? Patient is agreeable to be seen Sat by her primary nurse. Schedule was updated. documented in this encounterHolmes County [facility]11-08-2024 Patient's home Note* CARE COORDINATION - Joe Williamson RN - 02/02/2024 11:10 AM EST Patient called per this nurse. Patient was to be seen today Mon02/02/24. However, due to staffing, this Nurse contacted patient tosee if she would be willing to be seen Sat 02/02 instead? Patient is agreeable to be seen Sat by her primary nurse. Schedule was updated. [facility] Work Phone: 1(762) 911-750711-07-2024 NoteMiami Valley Hospital11-07-2024 History of Present illness Narrative* Jimmie [...] which included preparing to see the patient, [id number] patient care, completing clinical documentation, obtaining and/or [...] 01, 2024 10:51 AM documented in this encounterHolmes County [facility]11-[facility] Telephone encounter Note * Telephone Encounter [...] at this time. David Velazquez RN BSN Senior Counsel Commercial for Dr. Hutchison and Bryanna Luna, AQUATIC CENTRE MANAGER Covering for Dr. Spring [facility]11-06-2024 Telephone encounter Note* Telephone Encounter - David Velazquez - 01/31/2024 1:58 PM EST Phoned patient, but no answer. Left VM. David Velazquez RN BSN Senior Counsel Commercial for Dr. Hutchison and Bryanna Luna, AQUATIC CENTRE MANAGER Covering for Dr. Spring [facility]11-06-2024 Telephone encounter Note* Telephone Encounter - Yanna oRusseau - 01/31/2024 11:50 AM EST Patient called, she is having pain at her surgical site. Her surgery was on 01/02. Colectomy partial open w/ ileocolostomy. Please call her at [phone], thank you! [facility]11-04-2024 Instructions* Patient Instructions* Fe Edmond APRN.AQUATIC CENTRE MANAGER - 01/29/2024 1:39 PM EST Images from [...] small number of people the nodule may electrode turner and finisher to be an early cancer. Your doctor [...] cancer? Fewer than 5% of all nodules electrode turner and finisher to be cancer What if my nodule [...] smoking. THAT IS WRONG. documented in this encounterHolmes County [facility]11-04-2024 [facility]11-04-2024 History of Present illness Narrative* Fe Edmond APRN.LUZMA - 01/29/2024 10:03 AM EST Images from the original note were not included. [facility] INCIDENTAL LUNG NODULE PROGRAM Impression / [...] Lung Nodule Surveillance Lung Nodule Program Location: [facility] Please enter a follow up date: [...] (99 lb 6.8 oz)] Modified Medical Research Saxman Dyspnea Scale (MMRC) I only get breathless with strenous exercise 0 Other Pertinent Clinical Risk Factors: Significant exposures (1 year or more of exposure): None. Lived in [place] for 14 years. Recent travel history: NA [...] DATE OF EXAM: Sep 16 2023 8:48AM [facility] 0539 - CT CHEST W IVCON / [...] the beginning of this note. Fe Edmond APRN.AQUATIC CENTRE MANAGER Pulmonary & Critical Care Medicine January 29, 2024 10:09 AM documented in this encounterHolmes County [facility]11-01-2024 Telephone encounter Note * Telephone Encounter - Montserrat Yeager PTA - 01/26/2024 2:38 PM EDT Unmade PT visit today due DR givens [facility] Work Phone: 1(496) 869-780711-01-2024 Miscellaneous Notes* Telephone Encounter - Montserrat Yeager PTA - 01/26/2024 2:38 PM EDT Unmade PT visit today due DR appointment documented in this encounterHolmes County [facility]11-01-2024 Miscellaneous Notes* Routine - Yulia Xie RN - 01/26/2024 2:06 PM EDT SITUATION: Halfway routine visit completed today. only patient present [...] get made, ?disc dc documented in this encounterHolmes County [facility]11-01-2024 Patient's home Note* SN Ahmadi - Yulia Xie RN - 01/26/2024 2:06 PM EDT SITUATION: Halfway routine visit completed today. only patient present [...] did nutrition referral get made, ?disc dc [facility] Work Phone: 1([phone]) 980-502511-01-2024 NoteMiami [facility]11-01-2024 History of Present illness Narrative* Tessa Spring MD - 01/26/2024 1:08 PM EDT Images from the original note were not included. [facility] Multidisciplinary GI Tumor Board Primary Disease: [...] and nausea which [facility] she continued to receive conservative management with worship of bowel function. On follow-up visits, the [...] the various treatment options Tessa Spring MD [facility] documented in this encounterHolmes County [facility]11-01-2024 History of Present illness Narrative* Dulce Zhou RT(R) - 01/26/2024 8:40 AM EDT Radiology [...] PATIENT PRESENTS WITH AN IMPLANTABLE OR ATTACHED NEUROPSYCHOLOGY DIVISION CHIEF: No RADIOLOGY DEPARTMENT: CT; Exam(s) Completed: Chest PERIPHERAL IV DATA: Not applicable SIGNED BY: RT Oscar(R) January 26, 2024 8:55 AM documented in this encounterHolmes County [facility]11-01-2024 [facility]Mi[facility]10-29-2024 Miscellaneous Notes* PT ROUTINE/REASSESSMENT/RECERT/CASE MGMT - Montserrat Yeager PTA - 01/23/2024 11:31 AM EDT SITUATION: [...] summary for intervention/education details. documented in this encounterHolmes County [facility]10-29-2024 Patient's home Note* PT ROUTINE/REASSESSMENT/RECERT/CASE MGMT - Montserrat Yeager PTA - 01/23/2024 11:31 AM EDT SITUATION: [...] able See intervention summary for intervention/education details. [facility] Work Phone: [phone]) 693-191210-29-2024 Telephone encounter Note* Telephone Encounter - David Velazquez - 01/23/2024 9:21 AM EDT Phoned patient to let her know that signed paperwork was faxed this morning. Patient very appreciative for the follow-up call. David Velazquez RN BSN Senior Counsel Commercial for Dr. Hutchison and Bryanna Luna, AQUATIC CENTRE MANAGER Covering for Dr. Spring [facility]10-29-2024 Miscellaneous Notes* Telephone Encounter - David Velazquez - 01/23/2024 9:21 AM EDT Phoned patient to let her know that signed paperwork was faxed this morning. Patient very appreciative for the follow-up call. David Velazquez RN BSN Senior Counsel Commercial for Dr. Hutchison and Bryanna Luna, AQUATIC CENTRE MANAGER Covering for Dr. Spring * Telephone Encounter - Pepe Pablo - 01/19/2024 10:48 AM EDT Kina, Received a call from the patient, she was seen yesterday by Dr. Spring. Per patient, she receivedpaperwork from Dr. Spring for the handicap sticker, but it was missing his signature and the [facility] did not accept it. Patient is requesting a signed form to be faxed to [phone] ([facility]). Thank you documented in this encounterHolmes County [facility]10-25-2024 Miscellaneous Notes* PT ROUTINE/REASSESSMENT/RECERT/CASE Shelby Sunshine, PT - 01/19/2024 2:06 PM EDT SITUATION: [...] summary for intervention/education details. documented in this encounterHolmes County [facility]10-25-2024 Patient's home Note* PT ROUTINE/REASSESSMENT/RECERT/CASE Shelby Sunshine, PT - 01/19/2024 2:06 PM EDT SITUATION: [...] visit See intervention summary for intervention/education details. [facility] Work Phone: 1(333) 892-836310-25-2024 Miscellaneous Notes* SN Routine - Yulia Xie RN - 01/19/2024 12:26 PM EDT SITUATION: Halfway routine visit completed today. only patient present [...] out that she has colon CA at [facility] f/u vs yesterday. Vitals (see flow [...] 87#; she would like to see a hobbing press operator. SN intructed her to have oncology make [...] assessment and instruction, ?appetite? documented in this encounterHolmes County [facility]10-25-2024 Patient's home Note* SN Routine - Yulia Xie RN - 01/19/2024 12:26 PM EDT SITUATION: Halfway routine visit completed today. only patient present [...] out that she has colon CA at [facility] f/u vs yesterday. Vitals (see flow [...] 87#; she would like to see a hobbing press operator. SN intructed her to have oncology make [...] specific): post op assessment and instruction, ?appetite? [facility] Work Phone: [phone] Telephone encounter Note* Telephone Encounter - Pepe Pablo - 01/19/2024 10:48 AM EDT Kina, Received a call from the patient, she was seen yesterday by Dr. Spring. Per patient, she receivedpaperwork from Dr. Spring for the handicap sticker, but it was missing his signature and the [facility] did not accept it. Patient is requesting a signed form to be faxed to [phone] ([facility]). Thank you [facility]10-24-2024 Telephone encounter Note* Telephone Encounter - Estee Donnelly - 01/18/2024 3:59 PM EDT Called patient scheduled first opening and added to wait list [facility]10-24-2024 Miscellaneous Notes* Telephone Encounter - Estee Donnelly - 01/18/2024 3:59 PM EDT Called patient scheduled first opening and added to wait list * Telephone Encounter - Bryanna Gonzalez LPN - 01/18/2024 1:42 PM EDT Okay to schedule next [facility] patient appointment with either provider. Bryanna Gonzalez LPN * Telephone Encounter - Alysa Velazquez - 01/18/2024 12:50 PM EDT Patient is being referred by Dr Spring to see Oncology. DX: Colon Cancer Insurance: Medicaid [place] Patient's referral is for [place]. I spoke to patient and she would much rather be seen closer to home in [place]. I was going to warm transfer patient but she was getting another call. I advised patient I would send message for scheduling. Please review and advise documented in this encounterHolmes County [facility]10-24-2024 Telephone encounter Note * Telephone Encounter - Bryanna Gonzalez LPN - 01/18/2024 1:42 PM EDT Okay to schedule next iaw patient appointment with either provider. Bryanna Gonzalez LPN [facility]10-24-2024 Telephone encounter Note* Telephone Encounter - Alysa Velazquez - 01/18/2024 12:50 PM EDT Patient is being referred by Dr Spring to see Oncology. DX: Colon Cancer Insurance: Medicaid [place] Patient's referral is for [place]. I spoke to patient and she would much rather be seen closer to home in [place]. I was going to warm transfer patient but she was getting another call. I advised patient I would send message for scheduling. Please review and advise [facility]10-24-2024 [facility]10-24-2024 History of Present illness Narrative* Tessa [...] Will continue to follow Tessa Spring MD [facility] * David Velazquez [...] nodes, negative for malignancy (0/22). David Velazquez PRINTER'S ASSISTANT Senior Counsel Commercial for Dr. Hutchison and Bryanna Luna, AQUATIC CENTRE MANAGER Covering for Dr. Spring documented in this encounterHolmes County [facility]10-24-2024 [facility]10-22-20[facility] Miscellaneous Notes* PT ROUTINE/REASSESSMENT/RECERT/CASE MGMT - [...] summary for intervention/education details. documented in this encounterHolmes County [facility]10-22-2024 Patient's home Note* PT ROUTINE/REASSESSMENT/RECERT/CASE Dash Cui, PT - 01/16/2024 9:30 AM EDT SITUATION: [...] training. See intervention summary for intervention/education details. [facility] Work Phone: 1(364) 280-600010-19-2024 Miscellaneous Notes* PT EVALUATION - Shelby Brown, PT - 01/13/2024 1:36 PM EDT SITUATION: only patient present during today's visit. patient reports the following since the last homecare visit: medications/allergies--no changes, no fall. patient reports all things considered I'm doing better i think. BACKGROUND: Diagnoses (reason for Home Care): [facility] on 01/03/24-01/08/24. Encounter for surgical aftercare following [...] She cont to have illness /infection [facility] 01/02 - for an ileocecotomy PLF: lives [...] lifting >15 lbs ASSESSMENT: Patient evaluated by [facility]. Reviewed and explained [...] summary for intervention/education details. documented in this encounterHolmes County [facility]10-19-2024 Patient's home Note* PT EVALUATION - Shelby Brown, PT - 01/13/2024 1:36 PM EDT SITUATION: only patient present during today's visit. patient reports the following since the last homecare visit: medications/allergies--no changes, no fall. patient reports all things considered I'm doing better i think. BACKGROUND: Diagnoses (reason for Home Care): [facility] on 01/03/24-01/08/24. Encounter for surgical aftercare following [...] She cont to have illness /infection [facility] 01/02 - for an ileocecotomy PLF: lives [...] lifting >15 lbs ASSESSMENT: Patient evaluated [facility]. Reviewed and explained [...] commode See intervention summary for intervention/education details. [facility] Work Phone: 1(740) 299-488110-17-2024 Telephone encounter Note* Telephone Encounter - Pricila Peace RN - 01/11/2024 8:52 PM EDT Kina. I am the modular home crew member who saw Lakesha today for SOC. When I ran patients medication interaction report it came back as a possible severe interaction between: Diflucan and Oxycodone. Wanted to make you aware. Thank you. Pricila Peace RN [facility] Work Phone: [phone]) 168-437810-17-2024 Miscellaneous Notes* Telephone Encounter - Pricila Peace RN - 01/11/2024 8:52 PM EDT Kina. I am the modular home crew member who saw Lakesha today for SOC. When I ran patients medication interaction report it came back as a possible severe interaction between: Diflucan and Oxycodone. Wanted to make you aware. Thank you. Pricila Peace RN documented in this encounterHolmes County [facility]10-17-2024 Miscellaneous Notes* HH SN SOC - Pricila Peace RN - 01/11/2024 4:41 PM EDT SITUATION: Halfway SOC visit completed today. sister also present during today's visit. patient reports the following: Allergies--reviewed Medications--full medication reconciliation completed Falls--None DME-Reviewed and added to chart BACKGROUND: Discharged/Referral from [facility] on 01/08/24 following treatment for .Encounter [...] pleasant and cooperative with sn. sn reviewed [facility] booklet with pt. pt is in [...] appetite any better? diarrhea? documented in this encounterHolmes County [facility]10-17-2024 Patient's home Note* SN SOC - Pricila Peace RN - 01/11/2024 4:41 PM EDT SITUATION: Halfway SOC visit completed today. sister also present during today's visit. patient reports the following: Allergies--reviewed Medications--full medication reconciliation completed Falls--None DME-Reviewed and added to chart BACKGROUND: Discharged/Referral from [facility] on 01/08/24 following treatment for .Encounter [...] pleasant and cooperative with sn. sn reviewed [facility] booklet with pt. pt is in [...] specific): incision check, appetite any better? diarrhea? [facility] Work Phone: [phone]) 341-614310-16-2024 Telephone encounter Note* Telephone Encounter - Rema Beltre RN - 01/10/2024 3:40 PM EDT Returned call to Bianka - patients sister. S/p 01/02 - diagnostic lap, appendectomy, [...] Will touch base with patient tomorrow carlota marie. [facility]10-16-2024 Miscellaneous Notes* Telephone Encounter - Rema Beltre RN - 01/10/2024 3:40 PM EDT Returned call to Bianka - patients sister. S/p 01/02 - diagnostic lap, appendectomy, [...] Will touch base with patient tomorrow carlota marie. * Telephone Encounter - Yanna Rousseau 01/10/2024 3:19 PM EDT Please call patient's sister, Bianka at [phone]. Patient had surgery on 01/02 discharged on Sunday 01/07. Started having nausea & vomitting all day today. Please call Bianka and elisha, she is with the patient. Perforated Appendix. Thank you! documented in this encounterHolmes County [facility]10-16-2024 Telephone encounter Note * Telephone Encounter - Yanna Rousseau - 01/10/2024 3:19 PM EDT Please call patient's sister, Bianka at [phone]. Patient had surgery on 01/02 discharged on Sunday 01/07. Started having nausea & vomitting all day today. Please call Bianka and elisha, she is with the patient. Perforated Appendix. Thank you! [facility]10-14-2024 NoteWinthrop [facility] HospitalZiiyzerq45-49-2741 [facility] 01-08-2024 NoteWinthrop Community HospitalCsksgghz48-06-6318 Telephone encounter Note* Telephone Encounter - Rebecca Jiang LPN - 01/08/2024 1:20 PM EDT Spoke with Alexx Oglesby is no longer at the practice . She stated [facility]x is asking if Christie Baptiste will follow for [facility] and will return the call . [facility] Work Phone: [phone] 163-422410-14-2024 Miscellaneous Notes* Telephone Encounter - Rebecca Jiang LPN - 01/08/2024 1:20 PM EDT Spoke with Alexx Oglesby is no longer at the practice . She stated Christie Sánchez has beenfollowing the [facility] [place]. Alexx is asking if Christie Baptiste will follow for HHC and will return the call . * Telephone Encounter - Rebecca Jiang LPN - 01/08/2024 12:23 PM EDT Left a VM for Mary Moss regarding HHC order. documented in this encounterHolmes County [facility]10-14-2024 Telephone encounter Note * Telephone Encounter - Olga Maria - 01/08/2024 1:05 PM EDT Date/Time: 01/08/2024 1:05 PM Spoke with LAKESHA KOCH @ phone #: [phone] (Home Phone) - Preferred # for contact: [phone] Have you received help from a home care company in the last 60 days? NO Are you agreeable to HHC services? YES What address will we be seeing you at? [address] [place], [place] [id number] Do you have any upcoming appointments or things we need to schedule around? 01/15/24 Do you have a teachable CG or can you manage your care independently? CG Have you received the flu shot? NO If so, when and where? N/A [facility] Work Phone: [phone]) 327-792010-14-2024 Miscellaneous Notes* Telephone Encounter - Olga Maria - 01/08/2024 1:05 PM EDT Date/Time: 01/08/2024 1:05 PM Spoke with LAKESHA KOCH @ phone #: [phone] (Home Phone) - Preferred # for contact: [phone] Have you received help from a home care company in the last 60 days? NO Are you agreeable to HHC services? YES What [facility] [address] Do you have any upcoming appointments or things we need to schedule around? 01/15/24 Do you have a teachable CG or can you manage your care independently? CG Have you received the flu shot? NO If so, when and where? N/A documented in this encounterHolmes County [facility]10-14-2024 Telephone encounter Note * Telephone Encounter - Rebecca Jiang LPN - 01/08/2024 12:23 PM EDT Left a VM for Mary Moss regarding C order. [facility]10-14-2024 NoteWinthrop Community HospitalZmypxbze40-15-4225 [facility] 01-06-2024 [facility]10-11-2024 [facility]10-11-2024 Note [facility] HospitalNhkmrkmd91-11-0030 [facility]10-10-2024 NoteHNO ID: [id number] Author: IRON SALGADO RN Service: Nursing Author Type: Registered Nurse Type: Nursing Progress Note Filed: 01/04/2024 05:46 Note Text: Other: 0545- pt's hgb dropped to 7.6 from 9.6 . Page sent out to [facility] 01-03-2024 [facility]10-09-2024 [facility]10-09-2024 Note [facility] HospitalGsgfevee21-91-1072 NoteWinthrop Community HospitalHjwvjbpq83-71-0668 Telephone encounter Note* Telephone Encounter - Rema Beltre RN - 12/28/2023 1:[address] Spring sent pain medication to patients preferred pharmacy. Patient updated. [facility]10-03-2024 Miscellaneous Notes* Telephone Encounter - Rema [...] and let her know. Verified pharmacy in [facility] [place] is her preferred pharmacy. Patient thankful for return call. * Telephone Encounter - Pepe Pablo - 12/27/2023 10:56 AM EDT Kina, Received a call from the patient. She said she is experiencing pain in lower abdomen and wondering if Dr. Spring can prescribe medication stronger than Tylenol as her surgery is scheduled on 01/03/2024. Thank you documented in this encounterHolmes County [facility]10-03-2024 History and physical note * Lisbeth Alford PA-C - 12/28/2023 9:20 AM EDT HISTORY AND PHYSICAL EXAMINATION SERVICE DATE: 12/28/2023 SERVICE TIME: 10:48 AM PRIMARY CARE PHYSICIAN: Mary Moss CNP, AQUATIC CENTRE MANAGER REASON FOR VISIT: Lakesha Koch is a [...] manage symptoms. Procedure scheduled on 01/03/2024 at [facility]. REVIEW OF SYSTEMS: General: No weight loss, [...] chest pain, CHF, DVT/PE, hyperlipidemia, hypertension, recent [place], murmur/valvular heart disease, open heart surgery and [...] 348 QTC Calculation (Bazett) 441 Calculated P [place] 76 Calculated R [place] 8 Calculated T [place] 70 Impression NORMAL SINUS RHYTHM LOW VOLTAGE QRS, CONSIDER PULMONARY DISEASE, PERICARDIAL EFFUSION, OR NORMAL VARIANT NONSPECIFIC T WAVE ABNORMALITY ABNORMAL ECG Confirmed by MALINI PÉREZ MD ([id number]) on 09/30/2023 11:21:02 AM Recent Results (from the past 05334 hour(s)) ECHO Collection Time: 09/18/23 8:28 AM [...] large neck Non-male patient STOP-Bang Score: 1 [id number] Score: Age: <65 Sex: female CHF history: No Hypertension history: No Stroke/TIA/thromboembolism history: No Vascular disease history: No Diabetes history: No [id number] Score: 1 ANESTHESIA FINDINGS: Intubation History: No [...] additional comments: *PACC/TCI - anesthesia choice. Beta Edilson Monitoring Plan Post Procedure Analgesic Plan Prepared [...] DATE: 12/28/2023 TIME: 10:48 AM PAGER/CONTACT #: [facility]10-03-2024 History and physical note* Lisbeth Alford PA- C - 12/28/2023 9:20 AM EDT HISTORY AND PHYSICAL EXAMINATION SERVICE DATE: 12/28/2023 SERVICE TIME: 10:48 AM PRIMARY CARE PHYSICIAN: Mary Moss, AQUATIC CENTRE MANAGER, AQUATIC CENTRE MANAGER REASON FOR VISIT: Lakesha Koch is a [...] COVID-19 Immunization Status Overdue - Covid-19 Vaccine ( season) Overdue since 11/26/2023 04/26/2022 Imm Admin: COVID-19 vaccine, age 12+ yr, bivalent ([employer]) 03/01/2021 Imm Admin: COVID-19 original vaccine, age 12+ yr, monovalent ([employer] PURPLE TOP) 07/01/2020 Imm Admin: COVID-19 original vaccine, age 12+ yr, monovalent ([employer] - PURPLE TOP) Only the first 3 history entries have been loaded, but more history exists. CHIEF COMPLAINT: Pre-Op HPI: Lakesha Koch is a 63 year old female presenting for pre-anesthesia consultation. Pt has history of perforated appendix. Above procedure recommended to manage symptoms. Procedure scheduled on 01/03/2024 at [facility]. REVIEW OF SYSTEMS: General: No weight loss, [...] chest pain, CHF, DVT/PE, hyperlipidemia, hypertension, recent [place], murmur/valvular heart disease, open heart surgery and [...] 348 QTC Calculation (Bazett) 441 Calculated P [place] 76 Calculated R [place] 8 Calculated T [place] 70 Impression NORMAL SINUS RHYTHM LOW VOLTAGE QRS, CONSIDER PULMONARY DISEASE, PERICARDIAL EFFUSION, OR NORMAL VARIANT NONSPECIFIC T WAVE ABNORMALITY ABNORMAL ECG Confirmed by MALINI PÉREZ MD ([id number]) on 09/30/2023 11:21:02 AM Recent Results (from the past 17900 hour(s)) ECHO Collection Time: 09/18/23 8:28 AM [...] large neck Non-male patient STOP-Bang Score: 1 [id number] Score: Age: <65 Sex: female CHF history: No Hypertension history: No Stroke/TIA/thromboembolism history: No Vascular disease history: No Diabetes history: No [id number] Score: 1 ANESTHESIA FINDINGS: Intubation History: No [...] additional comments: *PACC/TCI - anesthesia choice. Beta Edilson Monitoring Plan Post Procedure Analgesic Plan Prepared [...] [facility] or Procedure: Answer: [place] Order Specific Question: Status of surgery/procedure: Answer: Scheduled Order Specific Question: Date of surgery/procedure: Answer: 01/03/2024 Instructions Given to Patient: Instructions located in the after visit summary. Patient given verbal and written preop instructions and voices comprehension and compliance. SIGNATURE: Lisbeth Alford PA-C PATIENT NAME: Lakesha Koch DATE: 12/28/2023 TIME: 10:48 AM PAGER/CONTACT #: documented in this encounterHolmes County [facility]10-03-2024 Instructions* Patient Instructions* Lisbeth Alford PA-C - 12/28/2023 9:05 AM EDT Images from the original note were not included. [facility] Pre-Anesthesia Consultation Clinic PATIENT PREOPERATIVE INSTRUCTIONS Tessa Spring MD has scheduled you for your procedure at this surgery center: [facility]: [phone] --[id number] [address]. Please check in on the1st floor at [...] Procedures: - YOU MUST HAVE A RESPONSIBLE CUSTOMS BROKERAGE MANAGER TAKE YOU HOME. A TOPOGRAPHIC COMPUTATOR OR PATROL POLICE SERGEANT CANNOT BE MADE A RESPONSIBLE CUSTOMS BROKERAGE MANAGER. - We recommend that a responsible person stays with you overnight to take care of you. - You cannot stay in a hotel alone after outpatient surgery. You will not be permitted to have yoursurgery, if you do not have someone to take care of you. If you already have an Advance Directive, please fax a copy to [phone] or email to for it to be [...] Lisbeth Alford PA-C Pre-Anesthesia Consultation Clinic (PACC) [place] [phone] documented in this encounterHolmes County [facility]10-02-2024 Telephone encounter Note * Telephone Encounter [...] and let her know. Verified pharmacy in [facility] in [place] is her preferred pharmacy. Patient thankful for return call. [facility]10-02-2024 Telephone encounter Note* Telephone Encounter - Pepe Pablo - 12/27/2023 10:56 AM EDT Kina, Received a call from the patient. She said she is experiencing pain in lower abdomen and wondering if Dr. Spring can prescribe medication stronger than Tylenol as her surgery is scheduled on 01/03/2024. Thank you [facility]09-23-2024 History and physical note* Tessa Spring MD - 12/18/2023 12:40 PM EDT New Patient Consult REASON FOR VISIT Consultation requested by Kailyn Coleman for an opinion regarding Lakesha Koch. My [...] and nausea [facility] she continued to receive conservative management with worship of bowel function. On follow-up visits, the [...] mouth three times a day with meals. 81353 mL 0 Food Supplement, Lactose-Free (ENSURE HIGH PROTEIN) liqd Take 237 mL by mouth two times a day. 2 times daily between meals 37419 mL 0 Food Supplement, Lactose-Free (ENSURE CLEAR) [...] requiring medication, no history of angina, CHF, [place], cardiac surgery or stents. Denies rest pain, [...] but no obvious peritonitis. Drain site healed. Agricultural Commodities Grader present: Yes ASSESSMENT 63-year-old female status post [...] Level: 5 - High Tessa Spring MD [facility] December 18, 2023 [facility]09-23-2024 History and physical note* Tessa Spring MD - 12/18/2023 12:40 PM EDT New Patient Consult REASON FOR VISIT Consultation requested by Kailyn Coleman for an opinion regarding Lakesha Koch. My [...] and nausea which [facility] she continued to receive conservative management with worship of bowel function. On follow-up visits, the [...] mouth three times a day with meals. 32959 mL 0 Food Supplement, Lactose-Free (ENSURE HIGH PROTEIN) liqd Take 237 mL by mouth two times a day. 2 times daily between meals 86536 mL 0 Food Supplement, Lactose-Free (ENSURE CLEAR) [...] requiring medication, no history of angina, CHF, [place], cardiac surgery or stents. Denies rest pain, [...] but no obvious peritonitis. Drain site healed. Agricultural Commodities Grader present: Yes ASSESSMENT 63-year-old female status post [...] Level: 5 - High Tessa Spring MD [facility] December 18, 2023 documented in this encounterHolmes County [facility]09-23-2024 Nurse Note* Fátima Lubin MA - 12/18/2023 10:01 AM EDT What is the reason for your visit today? Consult Perforated appendix Who is your referring physician? [place] [facility] Are you having poor oral intake? NO Have you had unintentional weight loss of 15 lbs/7 Kg in the last 3-6 months? NO Bowels: watery Wound: Temperature: No Drains: No [facility]09-23-2024 Nurse Note* Fátima Lubin MA - 12/18/2023 10:01 AM EDT What is the reason for your visit today? Consult Perforated appendix Who is your referring physician? [facility] Are you having poor oral intake? NO Have you had unintentional weight loss of 15 lbs/7 Kg in the last 3-6 months? NO Bowels: watery Wound: Temperature: No Drains: No documented in this encounterHolmes County [facility]09-23-2024 History of Present illness Narrative* Rema Beltre RN - 12/18/2023 9:30 AM EDT New/Est pt: New patient Reason for apt: perforated appendix Medical Hx: anemia, depression, failure to thrive, seizures Surgical Hx: ex lap (08/2023) Imagin09/04/23: CT abd/pelvis Scanned Documents View External Imaging - CT Scan [ID [id number]] Labs: Latest Reference Range & Units 09/26/23 [...] Abs Lymph 1.00 - 4.00 k/uL 1.43 [place]% % 6.8 Abs [place] <0.87 k/uL 0.64 Eosin% % 3.5 Abs Eosin <0.46 k/uL 0.33 Baso% % 0.9 Abs Baso <0.11 k/uL 0.08 Immature Gran % % 0.9 IMMATURE GRANS (ABS) <0.10 k/uL 0.08 NRBC /100 WBC 0.0 Absolute nRBC <0.01 k/uL <0.01 documented in this encounterHolmes County [facility]09-23-2024 Instructions* Patient Instructions* Pipe Estevez MD [...] into assistive devices [email or web address] documented in this encounterHolmes County [facility]09-23-2024 History of Present illness Narrative* Pipe Estevez MD - 12/18/2023 8:28 AM EDT December 18, 2023 Pipe Estevez MD [facility] [address] [place] [address] PCP: Mary Moss CNP ([facility]) [address] [place] [address] Referring Physician: Cristobal Junior APRN.AQUATIC CENTRE MANAGER [address] [facility] [id number] Lakesha Koch : 1960 History of Present [...] on the day of service, which included vodr-au-psnt patient care, completing clinical documentation, obtaining and/or reviewing separately obtained history, performing a medically appropriate examination, counseling and educating the patient/family/caregiver, ordering medications, tests, or procedures, communicating with other HCPs (not separately reported), independently interpreting results (not separately reported), and communicating results to the patient/family/caregiver. Thank you for including me in the care of this interesting patient. Pipe Esteevz MD Staff Neurologist [facility] Cc: documented in this encounterHolmes County [facility]09-09-2024 History of Present illness Narrative* Amish Xavier, LETI.AQUATIC CENTRE MANAGER - 12/04/2023 8:52 AM EDT Incidental Lung Nodule Enrollment Outreach attempt: 1st Attempt Outreach status: Complete Enrolled in Lung Nodule program: Yes Lung Nodule outreach: Enrolled Lung Nodule Program Location: [place] Called patient regarding her CT Chest dated 09.16.2023 that incidentally showed lung nodules. She is aware and is scheduled on 01/29/2024 at 11 am to see Fe Edmond CNP in the lung noduleclinic. Amish Xavier APRN.LUZMA documented in this encounterHolmes County [facility]08-14-2024 Telephone encounter Note * Telephone Encounter - Katt Duron - 11/08/2023 8:32 AM EDT I called and spoke to patient regarding her appointment with RAMSES Reza this morning with [facility]. The appointment note states bowel obstruction non op managed. Patient was not sure why this was made. She was seen 10/10 by a gastroenterology and a 10/11 [employer] Systemshart message to colorectal referral has not been read by patient. She has been seen at [facility] recently. Confirmed cancelling with our provider; recommended she discuss what further follow-up is needed through her current providers. Advised to contact her PCP for a sifc-ty-lolu release. Katt Quiñonez [facility]08-14-2024 Miscellaneous Notes* Telephone Encounter - Katt Duron - 11/08/2023 8:32 AM EDT I called and spoke to patient regarding her appointment with RAMSES Reza this morning with [facility]. The appointment note states bowel obstruction non op managed. Patient was not sure why this was made. She was seen 10/10 by a gastroenterology and a 10/11 KP Corpt message to colorectal referral has not been read by patient. She has been seen at [facility] recently. Confirmed cancelling with our provider; recommended she discuss what further follow-up is needed through her current providers. Advised to contact her PCP for a vube-bw-mljn release. Katt Quiñonez documented in this encounterHolmes County [facility]07-30-2024 History of Present illness Narrative* Marisa Monaco - 10/24/2023 3:38 PM EDT Incidental Lung Nodule Enrollment Outreach attempt: 3rd Attempt Outreach status: Complete Enrolled in Lung Nodule program: No Declined reason: Other Lung Nodule Program Location: [place] Two letter attempts, no response. Discharge letter sent. documented in this encounterHolmes County [facility]07-29-2024 Instructions* Patient Instructions* Cristobal Junior APRN.CNP - 10/23/2023 9:41 AM EDT Decrease [...] or sooner as needed. documented in this encounterHolmes County [facility]07-29-2024 History of Present illness Narrative* Christie Hylton MD - 10/23/2023 9:14 AM EDT [facility] Patient Name: Lakesha Koch Date of : 1960 FOLLOW-UP EPILEPSY CLINIC NOTE 10/23/2023 CHIEF COMPLAINT: epilepsy Last seen in Epilepsy Department: 08/01/2023, Ashly Lange CNP CLINICAL SUMMARY: Ms. Koch is a 63-year-old right-handed woman [facility] at [facility] clinic for further [...] that it has been several months. 08/01/2023 VV julius Lange, AQUATIC CENTRE MANAGER Patient reports that she's had 21 seizures [...] known triggers/changes. She works at a local [employer], normally 7-11A but employer is accommodating in [...] insomia Switched to Topamax over the summer. Lipan like Topamax helped even more with seizure [...] No - Significant head trauma No - CANDY DIPPER HAND Infection No - Other pre-existing CANDY DIPPER HAND disease (example - tumor, vascular disease) No - brain injury No - Developmental Delay No -Febrile Seizures No - Family history of seizures Anticonvulsant History: -Current AEDs: Valproate 750 mg BID Rescue clonazepam 0.25mg PRN (never used) -Prior AEDs: Levetiracetam (irritable, insomnia) Topiramate 100 mg twice daily (weight loss) Oxcarbazepine 300 -600 mg BID (?weight loss) PREVIOUS EPILEPSY EVALUATIONS: vEEG (01/2019, [facility]): 1. 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 The patient's findings were reviewed with LUZMA Junior. The clinical impression and plan of care [...] this date of service. Christie Hylton MD, MEd Staff Physician [facility] [place] [address] [place] [address] Office documented in this encounterHolmes County [facility]07-23-2024 History of Present illness Narrative* Marisa Monaco - 10/17/2023 7:36 AM EDT Incidental Lung Nodule Enrollment Outreach attempt: 2nd Attempt Outreach status: Complete Enrolled in Lung Nodule program: Referred Lung Nodule outreach: Needs outreach Lung Nodule Program Location: [place] Two letter attempts documented in this encounterHolmes County [facility]07-17-2024 Instructions* Patient Instructions* Cisco Gurrola MD - 10/11/2023 2:02 PM EDT # Please help to see if she can get a CT abdomen and pelvis repeated locally in [place] that is affiliated with [facility] # Please also get labs closer to home. # Ok to stop Augmentin and observe. # Will have general surgery reach out to you for the drain management. 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 and lives alone, no children. Pets: 1dog. No smoking and quit drinking 3 years. IMMUNIZATION HISTORY Immunization History Administered Date(s) Administered COVID-19 original vaccine, age 12+ yr, monovalent ([employer] - PURPLE TOP) 06/06/2020 07/01/2020 03/01/2021 COVID-19 vaccine, age 12+ yr, bivalent ([employer] Liaison) 04/26/2022 MEDICATIONS: Medications reviewed. Current Outpatient Medications [...] (elevated), fecal dillan-protectin 371, blood cx 09/14 04/28 negative, CT a/p 09/07: Extensive pericecal inflammatory [...] tx'ed w/ prolonged course of antibiotics and ROCIO drain with small amount of clear serous output. RECOMMENDATIONS: # Ok to stop and observe off antibiotics. # CPR and HIV screen added. # Pneumoccall and Shingles vaccines if insurance covers. # Chart to GI and surgery. Signature: Cisco Gurrola MD Infectious Disease Office PAGER: [phone] documented in this encounterHolmes County [facility]07-17-2024 Instructions* Patient Instructions* Kailyn Coleman MD - 10/11/2023 12:22 PM EDT - Schedule CTE at [facility] - Schedule follow-up with general surgery regarding drain - Schedule follow-up with colorectal surgery - Possible colonoscopy with me based on the findings from your CT scan - Bloodwork - IBD nutrition if affordable documented in this encounterHolmes County [facility]07-17-2024 History of Present illness Narrative* Kailyn Coleman MD - 10/11/2023 11:00 AM EDT NAME: Lakeshasangeetha Koch [facility] NO: [id number] REASON FOR VISIT Lakesha Koch is a [...] OSH was readmittedfor Failure to thrive at [facility]. She was found to have ongoing 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, myah-cecal abscess, weight loss, and ileal psoas abscess, and myah-uterine mass and and hypokalemia and was admitted to [facility] at that time from 09/08/2023-09/27/2023. Since discharge [...] mouth three times a day with meals. 28462 mL 0 Food Supplement, Lactose-Free (ENSURE HIGH PROTEIN) liqd Take 237 mL by mouth two times a day. 2 times daily between meals 51500 mL 0 Food Supplement, Lactose-Free (ENSURE CLEAR) [...] Follow up in 1 month Slade Carlisle APRN.AQUATIC CENTRE MANAGER GI STAFF I reviewed the history and [...] to have FTT and so represented to [facility], where she was followed by GI, ID, [...] follow-up with me after tests/in 1 month Kailyn Coleman MD documented in this encounterHolmes County [facility]07-16-2024 History of Present illness Narrative* Amish Xavier, LETI.AQUATIC CENTRE MANAGER - 10/10/2023 11:06 AM EDT Incidental Lung Nodule Enrollment Outreach attempt: 1st Attempt Outreach status: Left message Enrolled in Lung Nodule program: Referred Lung Nodule outreach: Needs outreach Lung Nodule Program Location: [place] Called patient regarding CT Chest dated 09.16.2023 that incidentally showed a lung nodules. No answer. Left message Amish Xavier APRN.CNP documented in this encounterHolmes County [facility]07-15-2024 History of Present illness Narrative* Marisa Monaco - 10/09/2023 12:58 PM EDT Patient Discharged from Hospital Needs outreach documented in this encounterHolmes County [facility]07-09-2024 Nurse Note* Fátima Roche RN - [...] Unknown Last Colonoscopy: Unknown Fátima Roche RN [facility]07-09-2024 Nurse Note* Fátima Roche RN - [...] Unknown Last Colonoscopy: Unknown Fátima Roche RN documented in this encounterHolmes County [facility]07-09-2024 History of Present illness Narrative* Jayla [...] records - she had been admitted at [facility] for abdominal pain, and a phlegmonous process noted in the area of the appendix and ROCIO drain placed by CT guidance in this location. She was then admitted to [facility] for failure to thrive (poor po intake) on 09/08/2023 and discharged 09/27/2023. The ROCIO that she presently has in, I believe, is the one placed at [facility] (probably 09/01/2023) - no records available and patient does not know. She presently states that she is pain-free. Her last CT scan, that I can obtain from records is 09/16/2023. She denies any surgical procedures and I do not see any in the patient's hospitalizations - either [facility] or main [facility]. She states that she is passing flatus. [...] entered by the nurse and reviewed by me Nursing Notes: Fátima Roche RN 10/03/2023 10:43 [...] that she has an appointment at main [facility] next week and will wait for determination [...] Straightforward Jayla Fung MD documented in this encounterHolmes County [facility]07-08-2024 History of Present illness Narrative* Marisa Monaco - 10/02/2023 11:40 AM EDT Patient Discharged from Hospital Needs outreach documented in this encounterHolmes County [facility]07-03-2024 Telephone encounter Note * Telephone Encounter - Angela Trujillo RN - 09/27/2023 3:25 PM EDT Patient has been identified by name and date of : Yes [facility] calling to request ICD Code for: ENSURE [...] PM Snack Please return call to Dayna [phone] Ext 3 [facility]07-03-2024 Miscellaneous Notes* Telephone Encounter - Angela Trujillo RN - 09/27/2023 3:25 PM EDT Patient has been identified by name and date of : Yes [facility] calling to request ICD Code for: ENSURE [...] PM Snack Please return call to Dayna [phone] Ext 3 documented in this encounterHolmes County [facility]06-26-2024 History of Present illness Narrative* Merlyn Tracy APRN.CNP - 09/20/2023 9:17 AM EDT Incidental Lung Nodule Enrollment Enrolled in Lung Nodule program: Referred Lung Nodule outreach: No outreach - Inpatient Lung Nodule Program Location: [place] documented in this encounterHolmes County [facility]06-14-2024 Telephone encounter Note * Telephone Encounter - Sivan Marcano RN - 09/08/2023 1:04 PM EDT Patient @ [facility] ER Patient/sister aware Epilepsy can be consulted as needed Sivan Marcano RN [facility] Work Phone: [phone]) 677-650006-14-2024 Miscellaneous Notes* Telephone Encounter - Sivan Marcano RN - 09/08/2023 1:04 PM EDT Patient @ [facility] ER Patient/sister aware Epilepsy can be consulted as needed Sivan Marcano RN * Telephone Encounter - Amish Cole APRN.CNP - 09/08/2023 12:13 PM EDT Agree with recommendation she needs full lab work and possible imaging/ testing. Will await updates Amish Coel APRN.CNP * Telephone Encounter - Sivan Marcano RN - 09/08/2023 9:07 AM EDT Spoke w/patient - she gives verbal permission to speak with sister Bianka Patient was recently hospitalized @ [facility] for 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/abscess/other health conditions - she [...] ER NOV: 02/05/2024 w/Dr. Hylton Forwarded to [facility] for review Sivan Marcano RN * Telephone Encounter - Argenis Beebe - 09/08/2023 8:42 AM EDT Medication Concern Person Calling bianka-sister(not on contact) patient is with bianka Name of medication depakote Concern with medication patient having tremors, swollen feet, not eating , lethargic Patient of Dr. hylton documented in this encounterHolmes County [facility]06-14-2024 Telephone encounter Note * Telephone Encounter - Amish Cole APRN.CNP - 09/08/2023 12:13 PM EDT Agree with recommendation she needs full lab work and possible imaging/ testing. Will await updates Amish Cole APRN.CNP [facility]06-14-2024 Telephone encounter Note* Telephone Encounter - Sivan Marcano RN - 09/08/2023 9:07 AM EDT Spoke w/patient - she gives verbal permission to speak with sister Bianka Patient was recently hospitalized @ [facility] for 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/abscess/other health conditions - she [...] ER NOV: 02/05/2024 w/Dr. Hylton Forwarded to [facility] for review Sivan Marcano RN [facility]06-14-2024 Telephone encounter Note* Telephone Encounter - Argenis Beebe - 09/08/2023 8:42 AM EDT Medication Concern Person Calling bianka-sister(not on contact) patient is with bianka Name of medication depakote Concern with medication patient having tremors, swollen feet, not eating , lethargic Patient of Dr. hylton [facility]05-10-2024 Telephone encounter Note* Telephone Encounter - Sivan Marcano RN - 08/04/2023 3:38 PM EDT Noted - patient aware Sivan Marcano RN [facility] Work Phone: [phone] Miscellaneous Notes* Telephone Encounter - Sivan Marcano [...] tablets per day. Authorizing Provider: AMISH COLE APRN.AQUATIC CENTRE MANAGER * Telephone Encounter - Sivan Marcano RN - 08/04/2023 1:48 PM EDT Patient requesting prescription for VPA ER 250 mg tablets - easier to swallow Increased goal dose: 1,000 mg BID Patient also requests prescription for KLP 0.5 mg ODT PRN use Preferred pharmacy: [facility] Forwarded to [address] for review Sivan Marcano RN * Telephone Encounter - Karime Ashraf - 08/04/2023 1:34 PM EDT Medication Concern Person Calling Lakesha Letha Manjit Name of medication Depakote 500mg Concern with medication pills are too big; would like to go back to 250mg Patient of Dr. Hylton documented in this encounterHolmes County [facility]05-10-2024 Telephone encounter Note * Telephone Encounter [...] tablets per day. Authorizing Provider: AMISH COLE APRN.AQUATIC CENTRE MANAGER [facility]05-10-2024 Telephone encounter Note* Telephone Encounter - Sivan Marcano RN - 08/04/2023 1:48 PM EDT Patient requesting prescription for VPA ER 250 mg tablets - easier to swallow Increased goal dose: 1,000 mg BID Patient also requests prescription for KLP 0.5 mg ODT PRN use Preferred pharmacy: [facility] Forwarded to [address] for review Sivan Marcano RN [facility]05-10-2024 Telephone encounter Note* Telephone Encounter - Karime Ashraf - 08/04/2023 1:34 PM EDT Medication Concern Person Calling Lakesha Koch Name of medication Depakote 500mg Concern with medication pills are too big; would like to go back to 250mg Patient [address]. Hylton [facility]05-08-2024 Telephone encounter Note* Telephone Encounter - Sivan Marcano RN - 08/02/2023 8:20 AM EDT Per patient request - lab orders faxed to [facility] lab Received confirmation of transmission Sivan Marcano RN [facility] Work Phone: [phone] Miscellaneous Notes* Telephone Encounter - Sivan Marcano RN - 08/02/2023 8:20 AM EDT Per patient request - lab orders faxed to [facility] lab Received confirmation of transmission Sivan Marcano RN documented in this encounterHolmes [facility]05-07-[facility] History of Present illness Narrative* sAhly Lange APRN.LUZMA - 08/01/2023 1:00 PM EDT [facility] Patient Name: Lakesha Koch Date of : 1960 FOLLOW-UP EPILEPSY CLINIC NOTE - VIRTUAL VISIT August 01, 2023 CHIEF COMPLAINT: epilepsy Last seen in Epilepsy Department: by Amish Cole CNP CLINICAL SUMMARY: Ms. Koch is a 63-year-old right-handed woman followed at [facility] outpatient clinic for further management of seizures. Originally established with Dr. Hylton in 01/2019 in [facility]. INTERIM HISTORY: Patient reports that she's had [...] insomia Switched to Topamax over the summer. Lipan like Topamax helped even more with seizure [...] No - Significant head trauma No - CANDY DIPPER HAND Infection No - Other pre-existing CANDY DIPPER HAND disease (example - tumor, vascular disease) No [...] mg BID 03/2020 - seen by LUZMA Junior but wants to change OXC, discussed with me and change to 250 -500VPA ER 12/2020 - OV with WALTER Quinn; VPA had inc to 500mg BID due to auras in 11/2020. 06/2021 - no seizure; continue VPA 500 mg BID 07/2023 - reports 21 seizures from 03/2023-thus far in 07/2023, taking VPA ER 750 mg BID PREVIOUS EPILEPSY EVALUATIONS: vEEG (01/2019, [facility]): 1. 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 Ashly Lange APRN.LUZMA August 01, 2023 documented in this encounterHolmes [facility]05-06-2024 Telephone encounter Note * Telephone Encounter - Sivan Marcano RN - 07/31/2023 3:01 PM EDT Patient did not appear for VV Message to S51 schedulers to assist Forwarded to [facility] for review Sivan Marcano RN [facility] Work Phone: [phone] Miscellaneous Notes* Telephone Encounter - Sivan Marcano RN - 07/31/2023 3:01 PM EDT Patient did not appear for VV Message to S51 schedulers to assist Forwarded to [facility] for review Sivan Marcano RN * Telephone Encounter - Sivan Marcano RN - 07/31/2023 12:03 PM EDT Patient reports seizure concern: Last Visit: 07/21/2022 Next Visit: None - transferred to 1 Date and Time of seizure: 07/28 - does not remember time 07/30 - AM Seizure description: Feeling of hemalatha [...] Sivan Marcano RN * Telephone Encounter - Lynne Hernández - 07/31/2023 11:57 AM EDT Seizure activity: Name of Caller : Lakesha Koch Relationship to patient: Self Contact phone number: [phone] Date of seizure: July 31, 2023 Duration: 2 or 3 minutes Back to Baseline (Yes/No): Yes Emergency treatment needed (Yes/No): No Patient of Dr. Hylton documented in this encounterHolmes [facility]05-06-2024 Telephone encounter Note * Telephone Encounter - Sivan Marcano RN - 07/31/2023 12:03 PM EDT Patient reports seizure concern: Last Visit: 07/21/2022 Next Visit: None - transferred to S51 Date and Time of seizure: 07/28 - does not remember time 07/30 - AM Seizure description: Feeling of hemalatha [...] 07/30 w/ANTONIO to discuss Sivan Marcano RN [facility]05-06-2024 Telephone encounter Note* Telephone Encounter - Lynne Hernández - 07/31/2023 11:57 AM EDT Seizure activity: Name of Caller : Lakesha Koch Relationship to patient: Self Contact phone number: [phone] Date of seizure: July 31, 2023 Duration: 2 or 3 minutes Back to Baseline (Yes/No): Yes Emergency treatment needed (Yes/No): No Patient of Dr. Hylton [facility]02-12-2024 Miscellaneous Notes* Telephone Encounter - Cj [...] by: patient Please E-Scribe Caller Contact Number: [phone] Pharmacy Name: [facility] Number: [phone] Generic/ brand: generic 30 or 90 day supply requested: 90 Last appointment: 07/21/22 Next Appointment: Patient was transferred to schedulers. Patient of Dr. Hylton documented in this encounterHolmes County [facility]10-25-2023 Miscellaneous Notes* Telephone Encounter - Lynne Hernández - 01/18/2023 1:28 PM EDT Lab orders faxed to [facility] Lab attn: Magi via [phone]. Patient was waiting. documented in this encounterHolmes County [facility]08-04-2023 History of Present illness Narrative* Sheila Walters DMD - 10/28/2022 12:00 AM EDT ----- Friday, October 28, 2022 at 3:59:08 PM ----- ----- Provider: Cristy Walters DMD -- Clinic: [place] ----- Patient presented today to discuss correction options for replacing her decayed bridge 8x10. Patient has lost her Medicaid insurance since her last appointment and will not be getting new dental insurance. Since patient is paying out of pocket for all dental treatment, she would like to pursue treatment at an office closer to home since she is from [place], [place]. I did advise patient that she needs to get a flipper to replace those teeth before the bridge breaks out of her mouth, patient agrees. If patient returns the next appointment would be impression for a flipper. documented in this [id number] History of Present illness Narrative* Amish Cole APRN.AQUATIC CENTRE MANAGER - 07/21/2022 1:00 PM EDT [facility] VIRTUAL VISIT I have communicated my name and active licensure. The patient's identity and physical location wereverified at the time of this visit. Either the patient or their legal public utilities sales representative has been informed of the risks [...] flash, face becomes flushed, gets shaky, no JIMENEZ, lasting 1-3 minutes. 2022 Seizure LOG - Apr. - 28 May - June Handedness: Right Occupation: Continues to work Driving: [...] NEUROLOGICAL EXAM: deferred PREVIOUS EVALUATIONS: vEEG (01/2019, [facility]): 1. Intermittent Slow, Regional Left and [...] APRN.CNP July 21, 2022 documented in this encounterHolmes County [facility]04-26-2023 Miscellaneous Notes* Telephone Encounter - Sivan [...] S51 appointment line - VV scheduled for 04/27 w/ANTONIO Sivan Marcano RN * Telephone Encounter - Argenis Hoover PSS - 07/20/2022 10:59 AM EDT Seizure activity: Name of Caller : Lakesha Koch Relationship to patient: Self Contact phone number: [phone] Date of seizure: 07/20/22 Duration: 2 minutes Back to Baseline (Yes/No): yes Emergency treatment needed (Yes/No): no Patient of Dr. hylton documented in this encounterHolmes County [facility]07-28-2022 Miscellaneous Notes* Telephone Encounter - Sivan Marcano RN - 10/21/2021 1:34 PM EDT Called patient, no answer received. Left message for return call. Patient not access [employer]. This encounter closed - no response from [...] Unable to leave message [facility] Sivan Marcano RN * Telephone Encounter - Ilene Sanford PA-C - 10/14/2021 1:58 PM EDT [...] VPA ER 500 mg BID Forwarded to [facility] for review/recommendation Sivan Marcano RN * Telephone Encounter - EFRAÍN James - 10/14/2021 1:23 PM EDT Images from the original note were not included. Uploaded to [facility] * Telephone Encounter - Sivan Marcano RN - 10/11/2021 4:40 PM EDT ASM level pending Sivan Marcano RN * Telephone Encounter - EFRAÍN James - 10/11/2021 4:37 PM EDT Images from the original note were not included. OUTSIDE LAB REPORT FACILITY NAME [place] PHONE/FAX [phone] COLLECTION DATE AND TIME: 10/11/21 Uploaded to [facility] documented in this encounterHolmes County [facility]06-24-2022 Miscellaneous Notes* Telephone Encounter - Sivan Marcano RN - 09/17/2021 11:24 AM EDT Spoke with patient and provided recommendation; she verbalizes understanding. Lab work completed locally. Lab requisition faxed to [facility] Received confirmation of transmission Sivan Marcano [...] lab work or medication increase Forwarded to [facility] for review/recommendation Sivan Marcano RN * [...] Lynsey Calloway RN * Telephone Encounter - EFRAÍN James - 09/15/2021 11:20 AM EDT Seizure activity: Name of Caller : Lakesha Koch Relationship to patient: Self If not self will need patient permission to release results or disclose health information with caller documented in FYI. Was permission obtained from patient? Yes Patient identified by Name and Date of . Lakesha Koch1960, Yes Contact phone number: [phone] (home) Date of seizure: 09/11/21 Duration: 2-3 mins Back to Baseline (Yes/No): yes Emergency treatment needed (Yes/No): no Patient of Dr. Hylton [facility] You will receive a return call within 24 hours. documented in this encounterHolmes County [facility]06-23-2022 Miscellaneous Notes* Telephone Encounter - Sivan Marcano RN - 09/16/2021 12:12 PM EDT CMP collected only - no ASM level Results addressed PCP Sivan Marcano RN * Telephone Encounter - Karime Ashraf - 09/16/2021 11:54 AM EDT Images from the original note were not included. OUTSIDE LAB REPORT FACILITY NAME [facility] PHONE/FAX [phone] COLLECTION DATE AND TIME: 07/02/2021 1313 Uploaded to [employer] documented in this encounterHolmes County [facility]04-11-2022 History of Present illness Narrative* Christie Hylton MD - 07/05/2021 12:21 PM EDT [facility] Patient Name: Lakesha Koch Date of : 1960 FOLLOW-UP EPILEPSY CLINIC NOTE - VIRTUAL VISIT July 05, 2021 at 12:22 PM CHIEF COMPLAINT: epilepsy Last seen in Epilepsy Department: 11/26/2019 by myself (Christie Hylton MD); last by Kerri Quinn 12/2020 CLINICAL SUMMARY: Ms. Koch is a 61-year-old right-handed woman followed at [facility] for further [...] injury; plans to return to work at [employer] in few weeks Continues to drive REVIEW [...] insomia Switched to Topamax over the summer. Lipan like Topamax helped even more with seizure [...] No - Significant head trauma No - CANDY DIPPER HAND Infection No - Other pre-existing CANDY DIPPER HAND disease (example - tumor, vascular disease) No [...] mg BID 03/2020 - seen by LUZMA Junior but wants to change OXC, discussed with me and change to 250 -500VPA ER 12/2020 - OV with WALTER Quinn; VPA had inc to 500mg BID due to auras in 11/2020. 06/2021 - no seizure; continue VPA 500 mg BID PREVIOUS EPILEPSY EVALUATIONS: vEEG (01/2019, [facility]): 1. 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[place], [place] No children Ex : history of [...] which included: preparing to see the patient [id number] patient care completing clinical documentation obtaining and/or reviewing separately obtained history counseling and educating the patient/family/caregiver ordering medications, tests, or procedures Christie Hylton MD, MEd Staff Physician [facility] [address] [place] [address] Office cc: Primary Care Physician: Mary Moss, AQUATIC CENTRE MANAGER [address] [facility] [address] Referring: Christie Hylton [address] [place], [place] [id number] Patient: Ms. Lakesha Koch [address] [phone] documented in this encounterHolmes County [facility]11-05-2019 History of Past illness Narrative* Problem [...] of this encounter (statuses as of 07/07/2021) [facility] History of Past illness Narrative* Problem [...] of this encounter (statuses as of 09/16/2021) [facility] History of Past illness Narrative* Problem [...] of this encounter (statuses as of 09/17/2021) [facility] History of Past illness Narrative* Problem [...] of this encounter (statuses as of 10/21/2021) [facility] History of Past illness Narrative* Problem [...] of this encounter (statuses as of 07/21/2022) [facility] History of Past illness Narrative* Problem [...] of this encounter (statuses as of 07/27/2022) [facility] History of Past illness Narrative* Problem [...] of this encounter (statuses as of 01/18/2023) [facility] History of Past illness Narrative* Problem [...] of this encounter (statuses as of 05/08/2023) [facility] Hospital[facility] summary Author Ankit Marsh [facility] Note Date/Time October 23, 2024 11:3 5am [facility] Medical Records Department [address] [place] [address] Emergency Department Summary 10/23/24 MR#: [id number] Acct: [id number] Name: LAKESHA KOCH Rep #:[id number] : 1960 64 From: Ankit Marsh MD PCP: Aubrey Lopez FABRICATION OPERATOR-C Status:REG ER Location: ED HPI History of [...] that shecannot tolerate even sips of water. [facility] Medical History Seizure disorder Hypotension Marijuana abuse [...] Std Deviation 45.9 H RDW Coeff of Yruy 13.6 Plt Count 293 MPV 9.4 Immature Gran % (Auto) 0.300 Neut % (Auto) 74.0 H Lymph % (Auto) 17.9 L [place] % (Auto) 4.8 Eos % (Auto) 2.2 [...] Care Provider: Aubrey Lopez Referrals: Aubrey Lopez, FABRICATION OPERATOR-C [Primary Care Provider] - As soon as possible Activity Restrictions/Additional Instructions: Continue your Zofran at home. Clear liquid diet and advance as tolerated. Drink plenty of oral fluids. Return with new or worsening symptoms. Print Language: Kenyan Disposition Disposition: Home, Self Care What to do if you have Problems For any increased pain, shortness of breath, bleeding, nausea or vomiting, chestpain, or any unexpected problems, contact your Primary Care Provider. Call [facility] ([phone]) or report to the closest Emergency Room. Call 911 if necessary. 10/23/24 5158 <Electronically signed by Ankit Marsh MD> Cosigner Signature (if applicable): CC: Aubrey CURIEL FABRICATION OPERATOR-C Jessica ~ Signed [facility] Work Phone: Discharge summary Author Saroj Puga [facility] Note Date/Time November 08, 2024 11 :33am [facility] Medical Records Department [address] [place] [address] Instructions for Home/Discharge Instructions 11/08/24 1131 MR#: [id number] Acct: [id number] Name: LAKESHA KOCH Rep #:[id number] : 1960 64 From: Saroj dao DO PCP: Aubrey Lopez FABRICATION OPERATOR-C Status:ADM IN Discharge Instructions DC O2, CPAP, [...] 0RF Referrals / Follow Up: Aubrey Lopez, FABRICATION OPERATOR-C [Primary Care Provider] - Disposition Disposition (needs filled in before D/C Order can be placed): Home, Self Care 11/08/24 1133<Electronically signed by Saroj Puga DO>Saroj Puga DO CC: Dr. Annette Mendez MD; Aubrey CURIEL FABRICATION OPERATOR-C Jessica ~ Signed [facility] Work Phone: Discharge summary Author Johnny Colunga [facility] Note Date/Time December 17, 2024 11:58am [facility] Medical Records Department [address] [place] [address] Emergency Department Summary 12/17/24 MR#: [id number] Acct: [id number] Name: LAKESHA KOCH ILENE Rep #:[id number] : 1960 64 From: Johnny martínez DO PCP: Aubrey Lopez Status:REG ER Location: ED HPI History of Present Illness Chief Complaint: Abd Pain Narrative Narrative: Chief complaint and HPI: 64-year-old female with past medical history of depression, anxiety, recurrent colon carcinoma presents for evaluation of rightlower quadrant abdominal pain. Patient states in August 2023 she had acute 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 which led to a diagnosis of colon cancer. She had a right hemicolectomy. She states she had recurrence of her colon cancer in January 2024 which resulted in another colon resection. She states her femoral nerve was taken as well. Patient states she has had chronic right lower quadrant abdominal pain that is progressively worsening. It radiates to her back. She follows with Dr. Poole with oncology and she is scheduled to have a CT abdomen pelvis on . She states her pain has worsened and she cannot wait until then. Associated symptom is nausea and nonbloody emesis. Her last chemotherapy was yesterday. She receives it every 2 weeks. She denies any fever, chills, shortness of breath, chest pain, dysuria. At baseline has diarrhea. She takes Dilaudid at home as needed for pain. Last dose 8 PM. Lastate yesterday evening. Review of systems: See HPI Medications: As listed on the chart Allergies: As listed on the chart PFSH: Per chart Vital signs: As listed on the chart. Reviewed. Physical exam: Gen: A&O x3, uncomfortable secondary to the pain Head: Normocephalic, atraumatic Eyes: No sclera icterus, conjunctiva clear ENT: Moist mucous membranes CV: RRR, no murmurs, no peripheral edema, right chest port without cellulitis Resp: Lungs CTA BL, no w/r/c GI: Abd soft, non-distended, tender to palpation in the right lower quadrant, norebound or rigidity, surgical incision healed well Musc: No deformity Skin: Warm, dry Neuro: Alert, oriented, grossly intact, sensation intact Psych: Cooperative, appropriate mood and affect [facility] Medical History Restless legs Cancer Hypotension Marijuana [...] days 09/12/24 Unknown Rx tablet #90 tabs lorazepam 0.5 mg tablet (Ativan) 0.5 mg PO BID PRN anx iety 7 days 11/25/24 Unknown Rx #10 tabs Allergy/AdvReac Type Severity Reaction Status Date / Time erythromycin base Allergy TONGUE Verified 12/17/24 08:34 PEELS Family History Sister Melanoma Father Prostate [...] year quit: 2020 substance use type: marijuana EXAM Physical Exam Const Vital Signs: 12/17/24 08:33 12/17/24 10:33 Temperature 97 F L Temperature Source Temporal Pulse Rate 85 71 Respiratory Rate 14 18 Blood Pressure 125/76 H 134/78 H Blood Pressure Mean 92 96 Pulse Ox 98 100 Oxygen Delivery Method Room Air Room Air MDM MDM MDM Narrative Medical decision making narrative: 64-year-old female with past medical history of depression, anxiety, recurrent colon carcinoma presents for evaluation of right lower quadrant abdominal pain. Patient states in August 2023 she had acute 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 which led to a diagnosis of colon cancer. She had a right hemicolectomy. She states she had recurrence of her colon cancer in January 2024 which resulted in another colon resection. She states her femoral nerve was taken as well. Patient states she has had chronic right lower quadrant abdominal pain that is progressively worsening. It radiates to her back. She follows with Dr. Poole with oncology. Associatedsymptom is nausea and nonbilious emesis. Differential diagnosis includes but isnot limited to carcinomatosis, worsening colon cancer/metastasis, obstruction, pancreatitis, biliary pathology, colitis, UTI, urolithiasis. NS bolus, Dilaudid, Zofran ordered for symptoms. Laboratory workup ordered including CT abdomen pelvis. Patient states she is not allowed to have Zofran until 3 days after chemotherapy. Zofran discontinued. Patient okay to have Compazine. Thiswas ordered. CBC with mild leukocytosis 11.8. Patient has baseline anemia of 9.1. Platelets unremarkable. CMP relatively unremarkable without TED, transaminitis, hyperbilirubinemia. Lactic acid unremarkable. Lipase elevated at 165. This is new from 11/25. UA negative for UTI. CT abdomen pelvis shows interval increase in size and number of the previous seen hypodense nodules throughout the liver suggestive of metastatic disease. Stable small enhancing nodule in the inferior medial wall of the gallbladder. The gallbladder is mildly distended. There is minimal gallbladder wall thickening. The nodule 6.2mm. Correlate with ultrasound if recommended. Patient not endorsing any right upper quadrant or epigastric abdominal pain. I do not think ultrasound is needed. Her pancreas is normal in size without evidence of surrounding inflammation or ductal dilation despite her lipase being elevated. It is not 3 times normal. She status post right hemicolectomy. On reevaluation, patient reconfirms that all of her pain is in right lower quadrant. She has no pain or tenderness to the right upper quadrant or epigastrium. At this point in time, no clear etiology for patient's right lower quadrant abdominal pain. She statesher femoral nerve was cut during the procedure, this may be chronic pain secondary to this. Patient requesting more pain medicine. She is received a total of 3 g of IV Dilaudid. Will reach out to her oncologist, Dr. Poole. I spoke with Dr. Jarquin who is on-call for Dr. Poole. He states that Dilaudid/opiates can sometimes increase visceral pain and this may be contributing to her increased pain. He states that palliative care writes for her Dilaudid. He states that he does not write for chronic pain management medication and therefore will not be switching or increasing the pain medicine. Recommendation is that patient could be admitted for pain control and be seen bypain management in the hospital. I did extensively inform the patient as well as all of her family about the results and the plan. I spoke with family members over the phone as well. Patient states she does not want to be admitted. She would like to discharge home and call palliative care. She states the Dilaudid has been controlling her pain at home but was not last night. She feels like her pain is controlled now that she will be fine with her home Dilaudid. I do feel this is appropriate. She was educated that she can return back to the emergency department at any time if her pain is not controlled. Shewas educated to follow- up with palliative care as well as oncology. I will refer her to pain management as well. She confirmed understand the plan as wellas the family. Patient stable for discharge home. Impression: 1. Chronic right lower quadrant abdominal pain 2. History of recurrent metastatic colon cancer 3. Chronic anemia Lab Data Labs: Laboratory Results - last 24 hr 12/17/24 12/17/24 09:15 10:23 WBC 11.8 H RBC 3.15 L Hgb 9.1 L Hct 28.2 L MCV 89.5 MCH 28.9 MCHC 32.3 RDW Std Deviation 52.9 H RDW Coeff of Yury 16.3 H Plt Count 325 MPV 10.1 Immature Gran % (Auto) 0.500 Neut % (Auto) 82.4 H Lymph % (Auto) 7.5 L [place] % (Auto) 9.4 Eos % (Auto) 0.0 Baso % (Auto) 0.2 Absolute Neuts (auto) 9.7 H Absolute Lymphs (auto) 0.88 Nucleated RBC % 0 Sodium 136 Potassium 3.4 Chloride 101 Carbon Dioxide 23.1 Anion Gap 11 BUN 20 H Creatinine 0.56 L Estim Creat Clear Calc 42.50 L Est GFR (MDRD) Non-Af 101 BUN/Creatinine Ratio 35.0 H Glucose 120 H Lactic Acid 1.5 Calcium 9.0 Total Bilirubin 0.19 AST 25 ALT 9 Alkaline Phosphatase 109 H Total Protein 6.4 Albumin 3.4 Globulin 3.0 Albumin/Globulin Ratio 1.1 Lipase 165 H Urine Color Yellow Urine Clarity Clear Urine pH 6.0 Ur Specific [place] 1.010 Urine Protein 30 H Urine Glucose (UA) Normal Urine Ketones Negative Urine Occult Blood Negative Urine Nitrite Negative Urine Bilirubin Negative Urine Urobilinogen Normal Ur Leukocyte Esterase Negative Urine RBC 0 SEEN Urine WBC 0 SEEN Ur Squamous Epith Cells 0-5 SEEN Urine Bacteria 0 SEEN Urine Mucus 0 SEEN Radiography Diagnostic Testing: Clinical Impression(s) from Imaging Studies Abdomen/Pelvis CT 12/17/24 08:48 IMPRESSION: Interval increase in size and number of the previously seen hypodense nodules throughout the liver suggestive of metastatic disease. Stable small enhancing nodule in the inferior medial wall of the gallbladder as described. Sonographic correlation recommended if clinically indicated. Reading Location: [facility] Discharge Plan Triage Chief Complaint: Abd Pain ED Provider: Johnny Colunga Dx/Rx/DC Orders Prescriptions: No Action sertraline 50 mg tablet 50 mg PO DAILY alendronate 70 mg tablet 70 mg PO QWEEK Patient Comments: Take once a week on Saturdays. buspirone 7.5 mg tablet 7.5 mg PO DAILY lorazepam [Ativan] 0.5 mg tablet 0.5 mg PO BID PRN (Reason: anxiety) 7 Days Qty: 10 0RF hydromorphone 2 mg Tablet 2 - [...] Care Provider: Aubrey Lopez Referrals: Aubrey Lopez, FABRICATION OPERATOR-C [Primary Care Provider, Family Practice] Print Language: Kenyan What to do if you have Problems For any increased pain, shortness of breath, bleeding, nausea or vomiting, chestpain, or any unexpected problems, contact your Primary Care Provider. Call [facility] ([phone]) or report to the closest Emergency Room. Call 911 if necessary. 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) 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 partial seizures, without mention of intractable epilepsy Encounter for monitoring long-term anticonvulsant therapy Encounter for therapeutic drug monitoring [facility] noteNo assessment information availableWMem[facility] Work Phone: Evaluation note* Diagnosis 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)- Primary 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 partial seizures, without mention of intractable epilepsy [facility]* Diagnosis 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, without mention of intractable epilepsy [facility] Diagnosis 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, without mention of intractable epilepsy [facility] Diagnosis 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, without mention of intractable epilepsy [facility] Diagnosis 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, without mention of intractable epilepsy [facility] Diagnosis Lung nodule- Primary Solitary pulmonary nodule [facility] Diagnosis Encounter for fitting and adjustment of non-vascular catheter- Primary [facility] Diagnosis Lung nodule- Primary Solitary pulmonary nodule documented [facility]* Diagnosis Intra-abdominal abscess (HCC)- Primary Peritoneal abscess Encounter for screening for human immunodeficiency virus (HIV) Special screening examination for other specified viral diseases [facility] Diagnosis Inflammatory bowel disease- Primary Other and unspecified noninfectious gastroenteritis and colitis Perforated appendix Acute 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 with generalized peritonitis Severe protein-calorie malnutrition (HCC) Other severe protein-calorie malnutrition [facility] Diagnosis 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, without mention of intractable epilepsy Drug-induced tremor Abnormal involuntary movements [facility] Diagnosis Focal epilepsy (HCC)- Primary Localization-related [...] Solitary pulmonary nodule documented [facility] Diagnosis Focal epilepsy (HCC)- Primary Localization-related [...] with generalized peritonitis [facility] Diagnosis Focal epilepsy (HCC)- Primary Localization-related [...] with generalized peritonitis [facility] Diagnosis Focal epilepsy (HCC)- Primary Localization-related [...] with generalized peritonitis [facility] Diagnosis Focal epilepsy (HCC)- Primary Localization-related [...] since May 2023. documented in this encounter [facility] note* Diagnosis Focal epilepsy (HCC)- Primary Localization-related [...] with generalized peritonitis documented [facility] Diagnosis Focal epilepsy (HCC)- Primary Localization-related [...] Nausea with vomiting documented in this encounter [facility] note* Diagnosis Focal epilepsy (HCC)- Primary Localization-related [...] failure to thrive [facility] Diagnosis Focal epilepsy (HCC)- Primary Localization-related [...] lump, unspecified site documented in this encounter [facility] note* Diagnosis Focal epilepsy (HCC)- Primary Localization-related [...] neoplasm of cecum documented in this encounter [facility] Diagnosis Focal epilepsy (HCC)- Primary Localization-related [...] of ascending colon documented in this [facility] Diagnosis Focal epilepsy (HCC)- Primary Localization-related [...] neoplasm of cecum documented [facility] Diagnosis Focal epilepsy (HCC)- Primary Localization-related [...] of ascending colon documented [facility] this [facility] Diagnosis Focal epilepsy (HCC)- Primary Localization-related [...] Nausea with vomiting documented in this encounter [facility] note* Diagnosis Focal epilepsy (HCC)- Primary Localization-related [...] neoplasm of cecum documented in this encounter [facility] note* Diagnosis Focal epilepsy (HCC)- Primary Localization-related [...] lump, unspecified site documented [facility] this [facility] Diagnosis Focal epilepsy (HCC)- Primary Localization-related [...] right lower quadrant documented [facility] this [facility] Diagnosis Focal epilepsy (HCC)- Primary Localization-related [...] right lower quadrant documented in this encounter [facility] Diagnosis Focal epilepsy (HCC)- Primary Localization-related [...] of lung field documented [facility] this encounter [facility] Diagnosis Focal epilepsy (HCC)- Primary Localization-related [...] neoplasm of cecum documented in this encounter [facility] Diagnosis Focal epilepsy (HCC)- Primary Localization-related [...] and colitis Dehydration documented in this encounter [facility] note* Diagnosis Focal epilepsy (HCC)- Primary Localization-related [...] neoplasm of cecum documented in this encounter [facility] Diagnosis Focal epilepsy (HCC)- Primary Localization-related [...] severe protein-calorie malnutrition documented in this encounter [facility] Diagnosis Focal epilepsy (HCC)- Primary Localization-related [...] vomiting Hypokalemia Hypopotassemia documented in this encounter [facility] Diagnosis Focal epilepsy (HCC)- Primary Localization-related [...] neoplasm of cecum documented in this encounter [facility] Diagnosis Focal epilepsy (HCC)- Primary Localization-related [...] of lung field documented in this encounter [facility] Diagnosis Focal epilepsy (HCC)- Primary Localization-related [...] of ascending colon documented in this encounter [facility] Diagnosis Focal epilepsy (HCC)- Primary Localization-related [...] neoplasm of cecum documented in this encounter [facility] Diagnosis Focal epilepsy (HCC)- Primary Localization-related [...] neoplasm of cecum documented in this encounter [facility] Diagnosis Focal epilepsy (HCC)- Primary Localization-related [...] neoplasm of cecum documented in this encounter [facility] Diagnosis Focal epilepsy (HCC)- Primary Localization-related [...] severe protein-calorie malnutrition documented in this encounter [facility] Diagnosis Focal epilepsy (HCC)- Primary Localization-related [...] neoplasm of cecum documented in this encounter [facility] Diagnosis Focal epilepsy (HCC)- Primary Localization-related [...] right lower quadrant documented in this encounter [facility] Diagnosis Focal epilepsy (HCC)- Primary Localization-related [...] of ascending colon documented in this encounter [facility] Diagnosis Focal epilepsy (HCC)- Primary Localization-related [...] right lower quadrant documented in this encounter [facility] Diagnosis Focal epilepsy (HCC)- Primary Localization-related [...] mass and lump documented in this encounter [facility] note* Diagnosis Focal epilepsy (HCC)- Primary Localization-related [...] mass and lump documented in this encounter [facility] note* Diagnosis Focal epilepsy (HCC)- Primary Localization-related [...] mass and lump documented in this encounter [facility] Diagnosis Focal epilepsy (HCC)- Primary Localization-related [...] neoplasm of cecum documented in this encounter [facility] Diagnosis Focal epilepsy (HCC)- Primary Localization-related [...] neoplasm of cecum documented in this encounter [facility] Diagnosis Focal epilepsy (HCC)- Primary Localization-related [...] of ascending colon documented in this encounter [facility]* Diagnosis Focal epilepsy (HCC)- Primary Localization-related [...] of ascending colon documented in this encounter [facility] note* Diagnosis Focal epilepsy (HCC)- Primary Localization-related [...] of ascending colon documented in this encounter [facility] note* Diagnosis Focal epilepsy (HCC)- Primary Localization-related [...] of ascending colon [facility] Diagnosis Focal epilepsy (HCC)- Primary Localization-related [...] neoplasm of cecum documented in this encounter [facility] note* Diagnosis Focal epilepsy (HCC)- Primary Localization-related [...] or unspecified remission documented [facility] this encounter [facility] Diagnosis Focal epilepsy (HCC)- Primary Localization-related [...] neoplasm of cecum documented in [facility] Diagnosis Focal epilepsy (HCC)- Primary [...] neoplasm of cecum documented in [facility] Diagnosis Focal epilepsy (HCC)- Primary [...] neoplasm of cecum documented in this encounter [facility] Diagnosis Focal epilepsy (HCC)- Primary Localization-related [...] neoplasm of cecum documented in this encounter [facility]* Diagnosis Focal epilepsy (HCC)- Primary Localization-related [...] severe protein-calorie malnutrition documented in this encounter [facility] note* Diagnosis Focal epilepsy (HCC)- Primary Localization-related [...] right lower quadrant documented [facility] Diagnosis Focal epilepsy (HCC)- Primary [...] neoplasm of cecum documented in this encounter [facility] Diagnosis Focal epilepsy (HCC)- Primary [...] neoplasm of cecum [facility] Diagnosis Focal epilepsy (HCC)- Primary Localization-related [...] neoplasm of cecum documented in this encounter [facility] Diagnosis Focal epilepsy (HCC)- Primary Localization-related [...] neoplasm of cecum documented in this encounter [facility]* Diagnosis Focal epilepsy (HCC)- Primary [...] right lower quadrant documented in this encounter [facility] Diagnosis Focal epilepsy (HCC)- Primary [...] right lower quadrant documented in this encounter [facility] note* Diagnosis Focal epilepsy (HCC)- Primary Localization-related [...] neoplasm of cecum documented in this encounter [facility]* Diagnosis Focal epilepsy (HCC)- Primary Localization-related [...] neoplasm of cecum documented in this encounter [facility] Diagnosis Focal epilepsy (HCC)- Primary Localization-related [...] neoplasm of liver documented in this [facility] Diagnosis Focal epilepsy (HCC)- Primary [...] neoplasm of cecum documented in this encounter [facility] Diagnosis Focal epilepsy (HCC)- Primary [...] neoplasm of liver [facility] Diagnosis Focal epilepsy (HCC)- Primary Localization-related [...] neoplasm of cecum documented in this encounter [facility]* Diagnosis Focal epilepsy (HCC)- Primary Localization-related [...] neoplasm of cecum documented in this [facility] Diagnosis Focal epilepsy (HCC)- Primary [...] neoplasm of cecum documented in this encounter [facility]* Diagnosis Focal epilepsy (HCC)- Primary [...] of ascending colon documented in this encounter [facility] note* Diagnosis Focal epilepsy (HCC)- Primary Localization-related [...] neoplasm of cecum documented in this encounter [facility] note* Diagnosis Focal epilepsy (HCC)- Primary Localization-related [...] (acute) (chronic) Palliative care by specialist- Primary Adenocarcinoma of cecum (HCC) Malignant neoplasm of cecum Cancer related pain Neoplasm related pain (acute) (chronic) Weight loss Loss of weight Anorexia CINV (chemotherapy-induced nausea and vomiting) Nausea with vomiting Malignant neoplasm of ascending colon (HCC) Malignant neoplasm of ascending colon documented [facility] Diagnosis Focal epilepsy (HCC)- Primary [...] related pain Neoplasm related pain (acute) (chronic) Hypokalemia Hypopotassemia Malignant neoplasm of ascending colon (HCC) Malignant neoplasm of ascending colon documented [facility] Diagnosis Focal epilepsy (HCC)- Primary [...] related pain Neoplasm related pain (acute) (chronic) Hypokalemia- Primary Hypopotassemia Malignant neoplasm of ascending colon (HCC) Malignant neoplasm of ascending colon documented [facility] Diagnosis Focal epilepsy (HCC)- Primary [...] liver (HCC) Secondary malignant neoplasm of liver Adenocarcinoma of cecum (HCC)- Primary Malignant neoplasm of cecum documented in this encounter [facility] HospitalHistory and physical note Author Annette Mendez [facility] Note Date/Time November 07, 2024 3: 29pm [facility] Medical Records Department [address] [place] [address] H&P Exam - Hospitalist 11/07/24 1514 MR#: [id number] Acct: [id number] Name: LAKESHA KOCH Rep #:[id number] : 1960 64 From: Annette Mendez MD PCP: Aubrey Lopez FABRICATION OPERATOR-C Status:REG ER Location: ED HPI - General General Date of Admission: 11/07/24 Date of Service: 11/07/24 Chief Complaint: Abdominal pain HPI Narrative LAKESHA KOCH, is a 64-year-old female history of recurrent colon cancer, GERD, recent port placement and first dose of chemotherapy, anxiety who presented [facility] ED 11/07/2024 for abdominal pain. She has a history of 2 colon resections at [facility] and had port placed and just started [...] sinceovernight, initially went to the out Patient [facility] and they sent her to the ED. Continues to have the pain in the lower abdomen, denies right upper quadrant or upper abdominal pain, denies any fevers at home, no cough, chest pain, shortness of breath. Does report she feels she has had a little bit of a hard time emptying her bladder. [facility] Medical History Seizure disorder Hypotension Marijuana abuse [...] 90.3 H, Lymph % (Auto) 5.6 L, [place] % (Auto) 3.3, Eos % (Auto) 0.0, [...] is seen in the pelvis. [facility] Assessment & Plan Assessment/Plan (1) Abdominal pain: [...] # Recurrent colon cancer -Following with the [facility] -Has Mediport and had her first chemotherapy yesterday -Will continue to follow with them on discharge #Hypokalemia -Replace -Repeat in the AM #Depression/anxiety -Continue home medications #DVT ppx: SCDs Annette Mendez MD Charges/Coding Visit Charges Inpatient E&M: 02791 Init Hosp L2 11/07/24 1529 <Electronically signed by Annette Mendez MD> Cosigner Signature (if applicable): CC: Dr. Annette Mendez MD; Aubrey [facility] FABRICATION OPERATOR-C Beam~ Signed [facility] Work Phone: Hospital Discharge instructions Additional Instructions Keep your appointment to have CT scan of your abdomen pelvis performed today. Return for persistent vomiting, worsening pain, fever, or condition worsening)[facility] Work Phone: Hospital Discharge instructionsAdditional Instructions Continue your Zofran at home. Clear liquid diet and advance as tolerated. Drink plenty of oral fluids. Return with new or worsening symptoms.[facility] Work Phone: Hospital Discharge instructionsAdditional Instructions Follow-up with oncology, palliative care, pain management. Continue to take your home Dilaudid. Return back to ED if symptoms change or worsen.[facility] Work Phone: Patient's home Plan of care note* Visit Details Visit Type -SN SOC Discipline -Halfway Problems Problem Description Start Date Status Goals [...] 01/11/2024 Active 1 goal linked to scheduled/documen claudai intervention 1 goal intervention scheduled/document ed in [...] location: abdomen Wound type (etiology): Incision Order: PRINCESS, skin glue in place Frequency: daily Wound [...] prevent skin irritation. [facility]* Visit [...] home exercise program. documented in this encounter [facility]'s home Plan of care note* Visit Details [...] community ambulation, in order to return to [facility], to be achieved by 02/10/24. [...] and home safety. documented [facility] this encounter [facility]* Visit [...] community ambulation, in order to return to [facility], to be achieved by 02/10/24. [...] home exercise program. documented in this encounter [facility]'s home Plan of care note* Visit Details Visit Type -SN ROUTINE Discipline -Halfway Problems Problem Description Start Date Status Goals [...] prevent skin irritation. documented [facility]* Visit Details Visit Type -VENTILATION MECHANIC ROUTINE Discipline -Physical Therapy Problems Problem Description [...] community ambulation, in order to return to [facility], to be achieved by 02/10/24. [...] home exercise program. documented [facility]* Visit Details Visit Type -SN ROUTINE Discipline -Halfway Problems Problem Description Start Date Status Goals [...] to scheduled/documen claudia intervention SN Gastrointestinal Disciplines: SN 01/11/2024 Active 1 [...] surgical care precautions. documented in this encounter [facility]'s home Plan of care note* Visit Details Visit Type -SN AGENCY DC W V ISIT Discipline -Halfway Problems Problem Description Start Date Status Goals [...] surgical care precautions. documented in this encounter [facility]Reason for referral (narrative)No reason for referral information availableWMemorial Health [facility] Work Phone: Reason for visit Narrative* MRI/CT (Routine) - Closed Specialty Diagnoses / Procedures Referred By Contac t Referred To Contact CT IMAGING Diagnoses Right lower quadrant abdominal pain Procedures CT ABD/PEL W IVCON CT ABD & PELVIS W/CONTRAST Tessa Spring MD [address] [place] [address] Phone: tel: fax: [place] [address] Referral ID Status Reason Start Date Expiration Date V isits Requested Visits Authorized [id number] Closed Auto-Generate d Referral 07/02/2024 08/01/2025 1 1 [facility] Summary Purpose Family History No Family History Records Found Relationship Condition Age at Onset Recorded Date/T juli sister Malignant melanoma Unknown father Malignant neoplasm of prostate Unknown Advance Directives No Advanced Directives Records FoundDocuments on File Type Date Recorded Patient Environmental Adviser Expl anation Advance Directive(s) 01/28/2019 9:06 AM Advance Directive(s) 01/08/2019 6:27 PM Advance Directive(s) 11/29/2018 2:09 PM Advance Directive Response Recorded Date/ Time Living Will No July 24, 2020 12:23am Power of Hot Roll Laminator No July 24 12:23am Advance Directive Response Recorded Date/ Time Living Will No August 16, 2022 1 0:01pm Power of Hot Roll Laminator No August 16, 2022 10:01pm Advance Directive Response Recorded Date/ Time Living Will No August 16, 2022 9 :01pm Power of Hot Roll Laminator No August 16, 2022 9:01pm Documents on File Type Date Recorded Patient Environmental Adviser Expl anation Advance Directive(s) 09/13/2023 12:11 PM Advance Directive(s) 09/12/2023 3:32 PM Date Activated Date Inactivated Comments 09/08/2023 10:55 PM Question Answer Comments Full Code Order Discussed With: Patient Date Activated Date Inactivated Comments 09/08/2023 10:55 PM 09/27/2023 5:15 PM Documents on File Type Date Recorded Patient Environmental Adviser Expl anation Advance Directive(s) 09/13/2023 12:11 PM [...] Do you have a Healthcare Power of Hot Roll Laminator? No April 08, 2024 4:53pm Living Will Yes July 11, 2024 11:00am Do you have a Healthcare Power of Hot Roll Laminator? Yes July 11, 2024 11:00am Name of Medical Power of Hot Roll Laminator . July 11, 2024 11:00am Date Activated [...] you have a Healthcare Pow er of Hot Roll Laminator? Yes July 11, 2024 11:00am Name of Medical Power of Hot Roll Laminator . July 11, 2024 11:00am Do you have a Healthcare Pow er of Hot Roll Laminator? Yes September 05, 2024 3:19pm Name of Medical Power of Hot Roll Laminator sister Valdes September 05, 2024 3:19pm Advance Directive Response Recorded Date/ Time Living Will Yes July 11, 2024 11:00am Do you have a Healthcare Pow er of Hot Roll Laminator? Yes July 11, 2024 11:00am Name of Medical Power of Hot Roll Laminator . July 11, 2024 11:00am Do you have a Healthcare Pow er of Hot Roll Laminator? Yes September 05, 2024 3:19pm Name of Medical Power of Hot Roll Laminator sister Valdes September 05, 2024 3:19pm Do you have a Healthcare Pow er of Hot Roll Laminator? Yes October 23, 2024 9:19am Advance Directive Response Recorded Date/ Time Living Will Yes July 11, 2024 11:00am Do you have a Healthcare Pow er of Hot Roll Laminator? Yes July 11, 2024 11:00am Name of Medical Power of Hot Roll Laminator . July 11, 2024 11:00am Do you have a Healthcare Pow er of Hot Roll Laminator? Yes November 07, 2024 11:36am Name of Medical Power of Hot Roll Laminator jeanettelesley dowling November 07, 2024 11:36am Do you have a Healthcare Pow er of Hot Roll Laminator? Yes September 05, 2024 3:19pm Name of Medical Power of Hot Roll Laminator sister Valdes September 05, 2024 3:19pm Do you have a Healthcare Pow er of Hot Roll Laminator? Yes October 23, 2024 9:19am Advance Directive Response Recorded Date/ Time Living Will Yes July 11, 2024 11:00am Do you have a Healthcare Pow er of Hot Roll Laminator? Yes July 11, 2024 11:00am Name of Medical Power of Hot Roll Laminator . July 11, 2024 11:00am Do you have a Healthcare Pow er of Hot Roll Laminator? Yes November 07, 2024 4:28pm Name of Medical Power of Hot Roll Laminator jeanettelesley dowling November 07, 2024 4:28pm Do you have a Healthcare Pow er of Hot Roll Laminator? Yes September 05, 2024 3:19pm Name of Medical Power of Hot Roll Laminator sister Valdes September 05, 2024 3:19pm Do you have a Healthcare Pow er of Hot Roll Laminator? Yes October 23, 2024 9:19am Date Activated Date Inactivated Comments 08/19/2024 3:56 PM 08/21/2024 6:00 PM Date Activated Date Inactivated Comments 01/11/2024 5:29 PM 07/24/2024 8:46 AM Date Activated Date Inactivated Comments 09/08/2023 10:55 PM 09/27/2023 5:15 PM Question Answer Comments Full Code Order Discussed With: Patient Advance Directive Response Recorded Date/ Time Do you have a Healthcare Pow er of Hot Roll Laminator? Yes November 07, 2024 4:28pm Name of Medical Power of Hot Roll Laminator jeanettelesley jama er November 07, 2024 4:28pm Do you have a Healthcare Pow er of Hot Roll Laminator? Yes September 05, 2024 3:19pm Name of Medical Power of Hot Roll Laminator Jeanette dowling, sister September 05, 2024 3:19pm Do you have a Healthcare Pow er of Hot Roll Laminator? Yes October 23, 2024 9:19am Do you have a Healthcare Pow er of Hot Roll Laminator? No November 20, 2024 9:45pm Date Activated [...] you have a Healthcare Pow er of Hot Roll Laminator? Yes November 07, 2024 4:28pm Name of Medical Power of Hot Roll Laminator jeanette jama er November 07, 2024 4:28pm Do you have a Healthcare Pow er of Hot Roll Laminator? Yes November 25, 2024 5:03pm Do you have a Healthcare Pow er of Hot Roll Laminator? Yes September 05, 2024 3:19pm Name of Medical Power of Hot Roll Laminator Jeanette dowling, September 05, 2024 3:19pm Do you have a Healthcare Pow er of Hot Roll Laminator? Yes October 23, 2024 9:19am Do you have a Healthcare Pow er of Hot Roll Laminator? No November 20, 2024 9:45pm Date Activated Date Inactivated Comments 11/21/2024 2:54 AM 11/24/2024 12:35 AM Date Activated Date Inactivated Comments 11/21/2024 2:54 AM 11/24/2024 12:35 AM Date Activated Date Inactivated Comments 08/19/2024 3:56 PM 08/21/2024 6:00 PM Date Activated Date Inactivated Comments 01/11/2024 5:29 PM 07/24/2024 8:46 AM Date Activated Date Inactivated Comments 09/08/2023 10:55 PM 09/27/2023 5:15 PM Question Answer Comments Full Code Order Discussed With: Patient Advance Directive Response Recorded Date/ Time Do you have a Healthcare Pow er of Hot Roll Laminator? Yes November 07, 2024 4:28pm Name of Medical Power of Hot Roll Laminator jeanette garvin November 07, 2024 4:28pm Do you have a Healthcare Pow er of Hot Roll Laminator? Yes November 25, 2024 5:03pm Do you have a Healthcare Pow er of Hot Roll Laminator? No December 17, 2024 8:33am Do you have a Healthcare Pow er of Hot Roll Laminator? Yes September 05, 2024 3:19pm Name of Medical Power of Hot Roll Laminator Jeanette Garvin, sister September 05, 2024 3:19pm Do you have a Healthcare Pow er of Hot Roll Laminator? Yes October 23, 2024 9:19am Do you have a Healthcare Pow er of Hot Roll Laminator? No November 20, 2024 9:45pm Chief Complaint and Reason for Visit Chief [...] 3:29 pm GERD (gastroesophageal reflux disease) J [facility] 2024 3:29pm Osteoporosis September 04, 2024 3:29 [...] 44pm STEMI November 20, 2024 10 :01pm Chief Complaint Admit Date ABD PAIN; STAGE [...] 44pm STEMI November 20, 2024 10 :01pm nausea November 25, 2024 4:20pm Chief Complaint Admit Date ABD PAIN; STAGE [...] 44pm STEMI November 20, 2024 10 :01pm nausea November 25, 2024 4:20pm ABD December 17, 2024 8:33am Reason for Referral Specialty Diagnoses / Procedures Referred By Contac t Referred To Contact Diagnoses Focal epilepsy (HCC) Procedures PROVIDER ORDERED FOLLOW UP OFFICE/OUTPATIENT [facility] 60 MINUTES Ashly Lange APRN.AQUATIC CENTRE MANAGER [address] [place] [address] Referral ID Status Reason Start Date Expiration Date Visits Requested Visits Authorized [id number] Authorized PCP Requested Referral 10/02/2023 07/31/2024 1 1 Specialty Diagnoses / Procedures Referred By Contac t Referred To Contact Nutrition Diagnoses Inflammatory bowel disease Perforated appendix Severe protein-calorie malnutrition (HCC) Procedures CONSULT TO NUTRITION THERAPY MEDICAL NUTRITION ASSMT&IVNTJ INDIV EACH 15 [place] Kailyn Coleman MD [address] [facility] [place] [address] Referral ID Status Reason Start Date Expiration Date Visits Requested Visits Authorized [id number] Authorized PCP Requested Referral 10/11/2023 10/10/2024 1 4 Specialty Diagnoses / Procedures Referred By Contac t Referred To Contact General Surgery Diagnoses Perforated appendix Procedures CONSULT TO GENERAL SURGERY OFFICE/OUTPATIENT [facility] 60 MINUTES Kailyn Coleman MD [address] [place] [address] Referral ID Status Reason Start Date Expiration Date Visits Requested Visits Authorized [id number] Authorized PCP Requested Referral 10/11/2023 10/10/2024 1 1 Specialty Diagnoses / Procedures Referred By Contac t Referred To Contact CT IMAGING Diagnoses Inflammatory bowel disease Perforated appendix Procedures CT ENTEROGRAPHY W IVCON CT ABD & PELVIS W/CONTRAST Kailyn Coleman MD [address] [place] [address] Ct Imaging [facility] Referral ID Status Reason Start Date Expiration Date Visits Requested Visits Authorized [id number] Pending Review Auto-Generat ed Referral 10/11/2023 11/09/2024 1 1 Specialty Diagnoses / Procedures Referred By Contac t Referred To Contact Neurology Diagnoses Focal epilepsy (HCC) Procedures CONSULT TO NEUROLOGY OFFICE/OUTPATIENT [facility] 60 MINUTES Cristobal Junior, GREEN END MAN.AQUATIC CENTRE MANAGER [address] [place] [address] Referral ID Status Reason Start Date Expiration Date Visits Requested Visits Authorized [id number] Authorized PCP Requested Referral 10/23/2023 10/22/2024 1 1 Specialty Diagnoses / Procedures Referred By Contac t Referred To Contact Pulmonary Disease Diagnoses Lung nodule Procedures CONSULT TO LUNG NODULE CLINIC OFFICE/OUTPATIENT [facility] 60 MINUTES Amish Xaveir, GREEN END MAN.AQUATIC CENTRE MANAGER [address] [place] [address] Referral ID Status Reason Start Date Expiration Date Visits Requested Visits Authorized [id number] Authorized PCP Requested Referral 12/04/2023 12/03/2024 1 1 Specialty Diagnoses / Procedures Referred By Contac t Referred To Contact Diagnoses Perforated appendix Procedures REFER TO PACC / [facility] - PREOPERATIVE OPTIMIZATION OFFICE/OUTPATIENT [facility] MDM 60 MINUTES Tessa Spring MD [address] [place] [address] Referral ID Status Reason Start Date Expiration Date Visits Requested Visits Authorized [id number] Authorized PCP Requested Referral 12/18/2023 12/17/2024 1 1 Specialty Diagnoses / Procedures Referred By Contac t Referred To Contact Oncology Diagnoses Malignant neoplasm of ascending colon (HCC) Procedures CONSULT TO ONCOLOGY OFFICE/OUTPATIENT [facility] 60 [place] [address] [place] [address] [place] [address] [place] [address] Referral ID Status Reason Start Date Expiration Date Visits Requested Visits Authorized [id number] Authorized PCP Requested Referral 01/17/2025 1 1 Specialty Diagnoses / Procedures Referred By Contac t Referred To Contact CT IMAGING Diagnoses Intra-abdominal and pelvic swelling, mass and lump, unspecified site Procedures CT CHEST WO IVCON DIAGNOSTIC COMPUTED TOMOGRAPHY THORAX W/O CNTRST Tessa Spring MD [address] [place] [address] Ct Imaging [place] [address] Referral ID Status Reason Start Date Expiration Date Visits Requested Visits Authorized [id number] Authorized Auto-Generat ed Referral 02/16/2025 1 1 Specialty Diagnoses / Procedures Referred By Contac t Referred To Contact CT IMAGING Diagnoses Right lower quadrant abdominal pain Procedures CT ABD/PEL W IVCON CT ABD & PELVIS W/CONTRAST Tessa Spring MD [address] [place] [address] Ct Imaging [facility] Referral ID Status Reason Start Date Expiration Date Visits Requested Visits Authorized [id number] Authorized Auto-Generat ed Referral 04/06/2025 1 1 Specialty Diagnoses / Procedures Referred By Allen keen Referred To Contact CT IMAGING Diagnoses Lung nodules Procedures CT CHEST WO IVCON DIAGNOSTIC COMPUTED TOMOGRAPHY THORAX W/O CNTRST Fe Edmond, LETI.AQUATIC CENTRE MANAGER [address] [place] [id number] Ct Imaging [facility] Referral ID Status Reason Start Date Expiration Date Visits Requested Visits Authorized [id number] New Request Auto-Generat ed Referral 04/27/2024 04/18/2025 1 1 Additional Source Comments INFORMATION SOURCE (unrecogn ized section and content) DATE CREATED AUTHOR 11/30/2019 [facility] DATE CREATED AUTHOR AUTHOR'S ORGANIZ ATION 11/01/2022 [facility] DATE CREATED AUTHOR AUTHOR'S ORGANIZ ATION 12/30/2023 [facility] DATE CREATED AUTHOR AUTHOR'S ORGANIZ ATION 10/21/2024 [facility] DATE CREATED AUTHOR AUTHOR'S ORGANIZ ATION 11/30/2024 [facility] DATE CREATED AUTHOR AUTHOR'S ORGANIZ ATION 12/15/2024 [facility] DATE CREATED AUTHOR AUTHOR'S ORGANIZ ATION 12/28/2024 [facility] DATE CREATED AUTHOR AUTHOR'S ORGANIZ ATION 01/15/2025 [facility] Source Comments (unrecognize d section and content) In the event this informatio n is protected by the Federal Confidentiality of Alcohol and Drug Abuse Patient Records regulations: The Federal rules restrict any use of the information to criminally investigate or prosecute any alcohol or drug abuse patient.[facility] HospitalIn the event this information is protected by the Federal Confidentiality of Alcohol and Drug Abuse Patient Records regulations: The Federal rules restrict any use of the information to criminally investigate or prosecute any alcohol or drug abuse patient.[facility] HospitalIn the event this information is protected by the Federal Confidentiality of Alcohol and Drug Abuse Patient Records regulations: The Federal rules restrict any use of the information to criminally investigate or prosecute any alcohol or drug abuse patient.[facility] HospitalIn the event this information is protected by the Federal Confidentiality of Alcohol and Drug Abuse Patient Records regulations: The Federal rules restrict any use of the information to criminally investigate or prosecute any alcohol or drug abuse patient.[facility] HospitalIn the event this information is protected by the Federal Confidentiality of Alcohol and Drug Abuse Patient Records regulations: The Federal rules restrict any use of the information to criminally investigate or prosecute any alcohol or drug abuse patient.[facility] HospitalIn the event this information is protected by the Federal Confidentiality of Alcohol and Drug Abuse Patient Records regulations: The Federal rules restrict any use of the information to criminally investigate or prosecute any alcohol or drug abuse patient.[facility] HospitalIn the event this information is protected by the Federal Confidentiality of Alcohol and Drug Abuse Patient Records regulations: The Federal rules restrict any use of the information to criminally investigate or prosecute any alcohol or drug abuse patient.[facility] HospitalIn the event this information is protected by the Federal Confidentiality of Alcohol and Drug Abuse Patient Records regulations: The Federal rules restrict any use of the information to criminally investigate or prosecute any alcohol or drug abuse patient.[facility] HospitalIn the event this information is protected by the Federal Confidentiality of Alcohol and Drug Abuse Patient Records regulations: The Federal rules restrict any use of the information to criminally investigate or prosecute any alcohol or drug abuse patient.[facility] HospitalIn the event this information is protected by the Federal Confidentiality of Alcohol and Drug Abuse Patient Records regulations: The Federal rules restrict any use of the information to criminally investigate or prosecute any alcohol or drug abuse patient.[facility] HospitalIn the event this information is protected by the Federal Confidentiality of Alcohol and Drug Abuse Patient Records regulations: The Federal rules restrict any use of the information to criminally investigate or prosecute any alcohol or drug abuse patient.[facility] HospitalIn the event this information is protected by the Federal Confidentiality of Alcohol and Drug Abuse Patient Records regulations: The Federal rules restrict any use of the information to criminally investigate or prosecute any alcohol or drug abuse patient.[facility] HospitalIn the event this information is protected by the Federal Confidentiality of Alcohol and Drug Abuse Patient Records regulations: The Federal rules restrict any use of the information to criminally investigate or prosecute any alcohol or drug abuse patient.[facility] HospitalIn the event this information is protected by the Federal Confidentiality of Alcohol and Drug Abuse Patient Records regulations: The Federal rules restrict any use of the information to criminally investigate or prosecute any alcohol or drug abuse patient.[facility] HospitalIn the event this information is protected by the Federal Confidentiality of Alcohol and Drug Abuse Patient Records regulations: The Federal rules restrict any use of the information to criminally investigate or prosecute any alcohol or drug abuse patient.[facility] HospitalIn the event this information is protected by the Federal Confidentiality of Alcohol and Drug Abuse Patient Records regulations: The Federal rules restrict any use of the information to criminally investigate or prosecute any alcohol or drug abuse patient.[facility] HospitalIn the event this information is protected by the Federal Confidentiality of Alcohol and Drug Abuse Patient Records regulations: The Federal rules restrict any use of the information to criminally investigate or prosecute any alcohol or drug abuse patient.[facility] HospitalIn the event this information is protected by the Federal Confidentiality of Alcohol and Drug Abuse Patient Records regulations: The Federal rules restrict any use of the information to criminally investigate or prosecute any alcohol or drug abuse patient.[facility] HospitalIn the event this information is protected by the Federal Confidentiality of Alcohol and Drug Abuse Patient Records regulations: The Federal rules restrict any use of the information to criminally investigate or prosecute any alcohol or drug abuse patient.[facility] HospitalIn the event this information is protected by the Federal Confidentiality of Alcohol and Drug Abuse Patient Records regulations: The Federal rules restrict any use of the information to criminally investigate or prosecute any alcohol or drug abuse patient.[facility] HospitalIn the event this information is protected by the Federal Confidentiality of Alcohol and Drug Abuse Patient Records regulations: The Federal rules restrict any use of the information to criminally investigate or prosecute any alcohol or drug abuse patient.[facility] HospitalIn the event this information is protected by the Federal Confidentiality of Alcohol and Drug Abuse Patient Records regulations: The Federal rules restrict any use of the information to criminally investigate or prosecute any alcohol or drug abuse patient.[facility] HospitalIn the event this information is protected by the Federal Confidentiality of Alcohol and Drug Abuse Patient Records regulations: The Federal rules restrict any use of the information to criminally investigate or prosecute any alcohol or drug abuse patient.[facility] HospitalIn the event this information is protected by the Federal Confidentiality of Alcohol and Drug Abuse Patient Records regulations: The Federal rules restrict any use of the information to criminally investigate or prosecute any alcohol or drug abuse patient.[facility] HospitalIn the event this information is protected by the Federal Confidentiality of Alcohol and Drug Abuse Patient Records regulations: The Federal rules restrict any use of the information to criminally investigate or prosecute any alcohol or drug abuse patient.[facility] HospitalIn the event this information is protected by the Federal Confidentiality of Alcohol and Drug Abuse Patient Records regulations: The Federal rules restrict any use of the information to criminally investigate or prosecute any alcohol or drug abuse patient.[facility] HospitalIn the event this information is protected by the Federal Confidentiality of Alcohol and Drug Abuse Patient Records regulations: The Federal rules restrict any use of the information to criminally investigate or prosecute any alcohol or drug abuse patient.[facility] HospitalIn the event this information is protected by the Federal Confidentiality of Alcohol and Drug Abuse Patient Records regulations: The Federal rules restrict any use of the information to criminally investigate or prosecute any alcohol or drug abuse patient.[facility] HospitalIn the event this information is protected by the Federal Confidentiality of Alcohol and Drug Abuse Patient Records regulations: The Federal rules restrict any use of the information to criminally investigate or prosecute any alcohol or drug abuse patient.[facility] HospitalIn the event this information is protected by the Federal Confidentiality of Alcohol and Drug Abuse Patient Records regulations: The Federal rules restrict any use of the information to criminally investigate or prosecute any alcohol or drug abuse patient.[facility] HospitalIn the event this information is protected by the Federal Confidentiality of Alcohol and Drug Abuse Patient Records regulations: The Federal rules restrict any use of the information to criminally investigate or prosecute any alcohol or drug abuse patient.[facility] HospitalIn the event this information is protected by the Federal Confidentiality of Alcohol and Drug Abuse Patient Records regulations: The Federal rules restrict any use of the information to criminally investigate or prosecute any alcohol or drug abuse patient.[facility] HospitalIn the event this information is protected by the Federal Confidentiality of Alcohol and Drug Abuse Patient Records regulations: The Federal rules restrict any use of the information to criminally investigate or prosecute any alcohol or drug abuse patient.[facility] HospitalIn the event this information is protected by the Federal Confidentiality of Alcohol and Drug Abuse Patient Records regulations: The Federal rules restrict any use of the information to criminally investigate or prosecute any alcohol or drug abuse patient.[facility] HospitalIn the event this information is protected by the Federal Confidentiality of Alcohol and Drug Abuse Patient Records regulations: The Federal rules restrict any use of the information to criminally investigate or prosecute any alcohol or drug abuse patient.[facility]In the event this information is protected by the Federal Confidentiality of Alcohol and Drug Abuse Patient Records regulations: The Federal rules restrict any use of the information to criminally investigate or prosecute any alcohol or drug abuse patient.[facility] HospitalIn the event this information is protected by the Federal Confidentiality of Alcohol and Drug Abuse Patient Records regulations: The Federal rules restrict any use of the information to criminally investigate or prosecute any alcohol or drug abuse patient.[facility] HospitalIn the event this information is protected by the Federal Confidentiality of Alcohol and Drug Abuse Patient Records regulations: The Federal rules restrict any use of the information to criminally investigate or prosecute any alcohol or drug abuse patient.[facility] HospitalIn the event this information is protected by the Federal Confidentiality of Alcohol and Drug Abuse Patient Records regulations: The Federal rules restrict any use of the information to criminally investigate or prosecute any alcohol or drug abuse patient.[facility] HospitalIn the event this information is protected by the Federal Confidentiality of Alcohol and Drug Abuse Patient Records regulations: The Federal rules restrict any use of the information to criminally investigate or prosecute any alcohol or drug abuse patient.[facility] HospitalIn the event this information is protected by the Federal Confidentiality of Alcohol and Drug Abuse Patient Records regulations: The Federal rules restrict any use of the information to criminally investigate or prosecute any alcohol or drug abuse patient.[facility] HospitalIn the event this information is protected by the Federal Confidentiality of Alcohol and Drug Abuse Patient Records regulations: The Federal rules restrict any use of the information to criminally investigate or prosecute any alcohol or drug abuse patient.[facility] HospitalIn the event this information is protected by the Federal Confidentiality of Alcohol and Drug Abuse Patient Records regulations: The Federal rules restrict any use of the information to criminally investigate or prosecute any alcohol or drug abuse patient.[facility] HospitalIn the event this information is protected by the Federal Confidentiality of Alcohol and Drug Abuse Patient Records regulations: The Federal rules restrict any use of the information to criminally investigate or prosecute any alcohol or drug abuse patient.[facility] HospitalIn the event this information is protected by the Federal Confidentiality of Alcohol and Drug Abuse Patient Records regulations: The Federal rules restrict any use of the information to criminally investigate or prosecute any alcohol or drug abuse patient.[facility] HospitalIn the event this information is protected by the Federal Confidentiality of Alcohol and Drug Abuse Patient Records regulations: The Federal rules restrict any use of the information to criminally investigate or prosecute any alcohol or drug abuse patient.[facility] HospitalIn the event this information is protected by the Federal Confidentiality of Alcohol and Drug Abuse Patient Records regulations: The Federal rules restrict any use of the information to criminally investigate or prosecute any alcohol or drug abuse patient.[facility] HospitalIn the event this information is protected by the Federal Confidentiality of Alcohol and Drug Abuse Patient Records regulations: The Federal rules restrict any use of the information to criminally investigate or prosecute any alcohol or drug abuse patient.[facility] HospitalIn the event this information is protected by the Federal Confidentiality of Alcohol and Drug Abuse Patient Records regulations: The Federal rules restrict any use of the information to criminally investigate or prosecute any alcohol or drug abuse patient.[facility] HospitalIn the event this information is protected by the Federal Confidentiality of Alcohol and Drug Abuse Patient Records regulations: The Federal rules restrict any use of the information to criminally investigate or prosecute any alcohol or drug abuse patient.[facility] HospitalIn the event this information is protected by the Federal Confidentiality of Alcohol and Drug Abuse Patient Records regulations: The Federal rules restrict any use of the information to criminally investigate or prosecute any alcohol or drug abuse patient.[facility] HospitalIn the event this information is protected by the Federal Confidentiality of Alcohol and Drug Abuse Patient Records regulations: The Federal rules restrict any use of the information to criminally investigate or prosecute any alcohol or drug abuse patient.[facility] HospitalIn the event this information is protected by the Federal Confidentiality of Alcohol and Drug Abuse Patient Records regulations: The Federal rules restrict any use of the information to criminally investigate or prosecute any alcohol or drug abuse patient.[facility] HospitalIn the event this information is protected by the Federal Confidentiality of Alcohol and Drug Abuse Patient Records regulations: The Federal rules restrict any use of the information to criminally investigate or prosecute any alcohol or drug abuse patient.[facility] HospitalIn the event this information is protected by the Federal Confidentiality of Alcohol and Drug Abuse Patient Records regulations: The Federal rules restrict any use of the information to criminally investigate or prosecute any alcohol or drug abuse patient.[facility] HospitalIn the event this information is protected by the Federal Confidentiality of Alcohol and Drug Abuse Patient Records regulations: The Federal rules restrict any use of the information to criminally investigate or prosecute any alcohol or drug abuse patient.[facility] HospitalIn the event this information is protected by the Federal Confidentiality of Alcohol and Drug Abuse Patient Records regulations: The Federal rules restrict any use of the information to criminally investigate or prosecute any alcohol or drug abuse patient.[facility] HospitalIn the event this information is protected by the Federal Confidentiality of Alcohol and Drug Abuse Patient Records regulations: The Federal rules restrict any use of the information to criminally investigate or prosecute any alcohol or drug abuse patient.[facility] HospitalIn the event this information is protected by the Federal Confidentiality of Alcohol and Drug Abuse Patient Records regulations: The Federal rules restrict any use of the information to criminally investigate or prosecute any alcohol or drug abuse patient.[facility] HospitalIn the event this information is protected by the Federal Confidentiality of Alcohol and Drug Abuse Patient Records regulations: The Federal rules restrict any use of the information to criminally investigate or prosecute any alcohol or drug abuse patient.[facility] HospitalIn the event this information is protected by the Federal Confidentiality of Alcohol and Drug Abuse Patient Records regulations: The Federal rules restrict any use of the information to criminally investigate or prosecute any alcohol or drug abuse patient.[facility] HospitalIn the event this information is protected by the Federal Confidentiality of Alcohol and Drug Abuse Patient Records regulations: The Federal rules restrict any use of the information to criminally investigate or prosecute any alcohol or drug abuse patient.[facility] HospitalIn the event this information is protected by the Federal Confidentiality of Alcohol and Drug Abuse Patient Records regulations: The Federal rules restrict any use of the information to criminally investigate or prosecute any alcohol or drug abuse patient.[facility] HospitalIn the event this information is protected by the Federal Confidentiality of Alcohol and Drug Abuse Patient Records regulations: The Federal rules restrict any use of the information to criminally investigate or prosecute any alcohol or drug abuse patient.[facility] HospitalIn the event this information is protected by the Federal Confidentiality of Alcohol and Drug Abuse Patient Records regulations: The Federal rules restrict any use of the information to criminally investigate or prosecute any alcohol or drug abuse patient.[facility] HospitalIn the event this information is protected by the Federal Confidentiality of Alcohol and Drug Abuse Patient Records regulations: The Federal rules restrict any use of the information to criminally investigate or prosecute any alcohol or drug abuse patient.[facility] HospitalIn the event this information is protected by the Federal Confidentiality of Alcohol and Drug Abuse Patient Records regulations: The Federal rules restrict any use of the information to criminally investigate or prosecute any alcohol or drug abuse patient.[facility] HospitalIn the event this information is protected by the Federal Confidentiality of Alcohol and Drug Abuse Patient Records regulations: The Federal rules restrict any use of the information to criminally investigate or prosecute any alcohol or drug abuse patient.[facility] HospitalIn the event this information is protected by the Federal Confidentiality of Alcohol and Drug Abuse Patient Records regulations: The Federal rules restrict any use of the information to criminally investigate or prosecute any alcohol or drug abuse patient.[facility] HospitalIn the event this information is protected by the Federal Confidentiality of Alcohol and Drug Abuse Patient Records regulations: The Federal rules restrict any use of the information to criminally investigate or prosecute any alcohol or drug abuse patient.[facility] HospitalIn the event this information is protected by the Federal Confidentiality of Alcohol and Drug Abuse Patient Records regulations: The Federal rules restrict any use of the information to criminally investigate or prosecute any alcohol or drug abuse patient.[facility] HospitalIn the event this information is protected by the Federal Confidentiality of Alcohol and Drug Abuse Patient Records regulations: The Federal rules restrict any use of the information to criminally investigate or prosecute any alcohol or drug abuse patient.[facility] HospitalIn the event this information is protected by the Federal Confidentiality of Alcohol and Drug Abuse Patient Records regulations: The Federal rules restrict any use of the information to criminally investigate or prosecute any alcohol or drug abuse patient.[facility] HospitalIn the event this information is protected by the Federal Confidentiality of Alcohol and Drug Abuse Patient Records regulations: The Federal rules restrict any use of the information to criminally investigate or prosecute any alcohol or drug abuse patient.[facility] HospitalIn the event this information is protected by the Federal Confidentiality of Alcohol and Drug Abuse Patient Records regulations: The Federal rules restrict any use of the information to criminally investigate or prosecute any alcohol or drug abuse patient.[facility] HospitalIn the event this information is protected by the Federal Confidentiality of Alcohol and Drug Abuse Patient Records regulations: The Federal rules restrict any use of the information to criminally investigate or prosecute any alcohol or drug abuse patient.[facility] HospitalIn the event this information is protected by the Federal Confidentiality of Alcohol and Drug Abuse Patient Records regulations: The Federal rules restrict any use of the information to criminally investigate or prosecute any alcohol or drug abuse patient.[facility] HospitalIn the event this information is protected by the Federal Confidentiality of Alcohol and Drug Abuse Patient Records regulations: The Federal rules restrict any use of the information to criminally investigate or prosecute any alcohol or drug abuse patient.[facility] HospitalIn the event this information is protected by the Federal Confidentiality of Alcohol and Drug Abuse Patient Records regulations: The Federal rules restrict any use of the information to criminally investigate or prosecute any alcohol or drug abuse patient.[facility] HospitalIn the event this information is protected by the Federal Confidentiality of Alcohol and Drug Abuse Patient Records regulations: The Federal rules restrict any use of the information to criminally investigate or prosecute any alcohol or drug abuse patient.[facility] HospitalIn the event this information is protected by the Federal Confidentiality of Alcohol and Drug Abuse Patient Records regulations: The Federal rules restrict any use of the information to criminally investigate or prosecute any alcohol or drug abuse patient.[facility] HospitalIn the event this information is protected by the Federal Confidentiality of Alcohol and Drug Abuse Patient Records regulations: The Federal rules restrict any use of the information to criminally investigate or prosecute any alcohol or drug abuse patient.[facility] HospitalIn the event this information is protected by the Federal Confidentiality of Alcohol and Drug Abuse Patient Records regulations: The Federal rules restrict any use of the information to criminally investigate or prosecute any alcohol or drug abuse patient.[facility] HospitalIn the event this information is protected by the Federal Confidentiality of Alcohol and Drug Abuse Patient Records regulations: The Federal rules restrict any use of the information to criminally investigate or prosecute any alcohol or drug abuse patient.[facility] HospitalIn the event this information is protected by the Federal Confidentiality of Alcohol and Drug Abuse Patient Records regulations: The Federal rules restrict any use of the information to criminally investigate or prosecute any alcohol or drug abuse patient.[facility] HospitalIn the event this information is protected by the Federal Confidentiality of Alcohol and Drug Abuse Patient Records regulations: The Federal rules restrict any use of the information to criminally investigate or prosecute any alcohol or drug abuse patient.[facility] HospitalIn the event this information is protected by the Federal Confidentiality of Alcohol and Drug Abuse Patient Records regulations: The Federal rules restrict any use of the information to criminally investigate or prosecute any alcohol or drug abuse patient.[facility] HospitalIn the event this information is protected by the Federal Confidentiality of Alcohol and Drug Abuse Patient Records regulations: The Federal rules restrict any use of the information to criminally investigate or prosecute any alcohol or drug abuse patient.[facility] HospitalIn the event this information is protected by the Federal Confidentiality of Alcohol and Drug Abuse Patient Records regulations: The Federal rules restrict any use of the information to criminally investigate or prosecute any alcohol or drug abuse patient.[facility] HospitalIn the event this information is protected by the Federal Confidentiality of Alcohol and Drug Abuse Patient Records regulations: The Federal rules restrict any use of the information to criminally investigate or prosecute any alcohol or drug abuse patient.[facility] HospitalIn the event this information is protected by the Federal Confidentiality of Alcohol and Drug Abuse Patient Records regulations: The Federal rules restrict any use of the information to criminally investigate or prosecute any alcohol or drug abuse patient.[facility] HospitalIn the event this information is protected by the Federal Confidentiality of Alcohol and Drug Abuse Patient Records regulations: The Federal rules restrict any use of the information to criminally investigate or prosecute any alcohol or drug abuse patient.[facility] HospitalIn the event this information is protected by the Federal Confidentiality of Alcohol and Drug Abuse Patient Records regulations: The Federal rules restrict any use of the information to criminally investigate or prosecute any alcohol or drug abuse patient.[facility] HospitalIn the event this information is protected by the Federal Confidentiality of Alcohol and Drug Abuse Patient Records regulations: The Federal rules restrict any use of the information to criminally investigate or prosecute any alcohol or drug abuse patient.[facility] HospitalIn the event this information is protected by the Federal Confidentiality of Alcohol and Drug Abuse Patient Records regulations: The Federal rules restrict any use of the information to criminally investigate or prosecute any alcohol or drug abuse patient.[facility] HospitalIn the event this information is protected by the Federal Confidentiality of Alcohol and Drug Abuse Patient Records regulations: The Federal rules restrict any use of the information to criminally investigate or prosecute any alcohol or drug abuse patient.[facility] HospitalIn the event this information is protected by the Federal Confidentiality of Alcohol and Drug Abuse Patient Records regulations: The Federal rules restrict any use of the information to criminally investigate or prosecute any alcohol or drug abuse patient.[facility] HospitalIn the event this information is protected by the Federal Confidentiality of Alcohol and Drug Abuse Patient Records regulations: The Federal rules restrict any use of the information to criminally investigate or prosecute any alcohol or drug abuse patient.[facility] HospitalIn the event this information is protected by the Federal Confidentiality of Alcohol and Drug Abuse Patient Records regulations: The Federal rules restrict any use of the information to criminally investigate or prosecute any alcohol or drug abuse patient.[facility] HospitalIn the event this information is protected by the Federal Confidentiality of Alcohol and Drug Abuse Patient Records regulations: The Federal rules restrict any use of the information to criminally investigate or prosecute any alcohol or drug abuse patient.[facility] HospitalIn the event this information is protected by the Federal Confidentiality of Alcohol and Drug Abuse Patient Records regulations: The Federal rules restrict any use of the information to criminally investigate or prosecute any alcohol or drug abuse patient.[facility] HospitalIn the event this information is protected by the Federal Confidentiality of Alcohol and Drug Abuse Patient Records regulations: The Federal rules restrict any use of the information to criminally investigate or prosecute any alcohol or drug abuse patient.[facility] HospitalIn the event this information is protected by the Federal Confidentiality of Alcohol and Drug Abuse Patient Records regulations: The Federal rules restrict any use of the information to criminally investigate or prosecute any alcohol or drug abuse patient.[facility] HospitalIn the event this information is protected by the Federal Confidentiality of Alcohol and Drug Abuse Patient Records regulations: The Federal rules restrict any use of the information to criminally investigate or prosecute any alcohol or drug abuse patient.[facility] HospitalIn the event this information is protected by the Federal Confidentiality of Alcohol and Drug Abuse Patient Records regulations: The Federal rules restrict any use of the information to criminally investigate or prosecute any alcohol or drug abuse patient.[facility] HospitalIn the event this information is protected by the Federal Confidentiality of Alcohol and Drug Abuse Patient Records regulations: The Federal rules restrict any use of the information to criminally investigate or prosecute any alcohol or drug abuse patient.[facility] HospitalIn the event this information is protected by the Federal Confidentiality of Alcohol and Drug Abuse Patient Records regulations: The Federal rules restrict any use of the information to criminally investigate or prosecute any alcohol or drug abuse patient.[facility] HospitalIn the event this information is protected by the Federal Confidentiality of Alcohol and Drug Abuse Patient Records regulations: The Federal rules restrict any use of the information to criminally investigate or prosecute any alcohol or drug abuse patient.[facility] HospitalIn the event this information is protected by the Federal Confidentiality of Alcohol and Drug Abuse Patient Records regulations: The Federal rules restrict any use of the information to criminally investigate or prosecute any alcohol or drug abuse patient.[facility] HospitalIn the event this information is protected by the Federal Confidentiality of Alcohol and Drug Abuse Patient Records regulations: The Federal rules restrict any use of the information to criminally investigate or prosecute any alcohol or drug abuse patient.[facility] HospitalIn the event this information is protected by the Federal Confidentiality of Alcohol and Drug Abuse Patient Records regulations: The Federal rules restrict any use of the information to criminally investigate or prosecute any alcohol or drug abuse patient.[facility] HospitalIn the event this information is protected by the Federal Confidentiality of Alcohol and Drug Abuse Patient Records regulations: The Federal rules restrict any use of the information to criminally investigate or prosecute any alcohol or drug abuse patient.[facility] HospitalIn the event this information is protected by the Federal Confidentiality of Alcohol and Drug Abuse Patient Records regulations: The Federal rules restrict any use of the information to criminally investigate or prosecute any alcohol or drug abuse patient.[facility] HospitalIn the event this information is protected by the Federal Confidentiality of Alcohol and Drug Abuse Patient Records regulations: The Federal rules restrict any use of the information to criminally investigate or prosecute any alcohol or drug abuse patient.[facility] HospitalIn the event this information is protected by the Federal Confidentiality of Alcohol and Drug Abuse Patient Records regulations: The Federal rules restrict any use of the information to criminally investigate or prosecute any alcohol or drug abuse patient.[facility] HospitalIn the event this information is protected by the Federal Confidentiality of Alcohol and Drug Abuse Patient Records regulations: The Federal rules restrict any use of the information to criminally investigate or prosecute any alcohol or drug abuse patient.[facility] HospitalIn the event this information is protected by the Federal Confidentiality of Alcohol and Drug Abuse Patient Records regulations: The Federal rules restrict any use of the information to criminally investigate or prosecute any alcohol or drug abuse patient.[facility] HospitalIn the event this information is protected by the Federal Confidentiality of Alcohol and Drug Abuse Patient Records regulations: The Federal rules restrict any use of the information to criminally investigate or prosecute any alcohol or drug abuse patient.[facility] HospitalIn the event this information is protected by the Federal Confidentiality of Alcohol and Drug Abuse Patient Records regulations: The Federal rules restrict any use of the information to criminally investigate or prosecute any alcohol or drug abuse patient.[facility] HospitalIn the event this information is protected by the Federal Confidentiality of Alcohol and Drug Abuse Patient Records regulations: The Federal rules restrict any use of the information to criminally investigate or prosecute any alcohol or drug abuse patient.[facility] HospitalIn the event this information is protected by the Federal Confidentiality of Alcohol and Drug Abuse Patient Records regulations: The Federal rules restrict any use of the information to criminally investigate or prosecute any alcohol or drug abuse patient.[facility] HospitalIn the event this information is protected by the Federal Confidentiality of Alcohol and Drug Abuse Patient Records regulations: The Federal rules restrict any use of the information to criminally investigate or prosecute any alcohol or drug abuse patient.[facility] HospitalIn the event this information is protected by the Federal Confidentiality of Alcohol and Drug Abuse Patient Records regulations: The Federal rules restrict any use of the information to criminally investigate or prosecute any alcohol or drug abuse patient.[facility] HospitalIn the event this information is protected by the Federal Confidentiality of Alcohol and Drug Abuse Patient Records regulations: The Federal rules restrict any use of the information to criminally investigate or prosecute any alcohol or drug abuse patient.[facility] HospitalIn the event this information is protected by the Federal Confidentiality of Alcohol and Drug Abuse Patient Records regulations: The Federal rules restrict any use of the information to criminally investigate or prosecute any alcohol or drug abuse patient.[facility] HospitalIn the event this information is protected by the Federal Confidentiality of Alcohol and Drug Abuse Patient Records regulations: The Federal rules restrict any use of the information to criminally investigate or prosecute any alcohol or drug abuse patient.[facility] HospitalIn the event this information is protected by the Federal Confidentiality of Alcohol and Drug Abuse Patient Records regulations: The Federal rules restrict any use of the information to criminally investigate or prosecute any alcohol or drug abuse patient.[facility] HospitalIn the event this information is protected by the Federal Confidentiality of Alcohol and Drug Abuse Patient Records regulations: The Federal rules restrict any use of the information to criminally investigate or prosecute any alcohol or drug abuse patient.[facility] HospitalIn the event this information is protected by the Federal Confidentiality of Alcohol and Drug Abuse Patient Records regulations: The Federal rules restrict any use of the information to criminally investigate or prosecute any alcohol or drug abuse patient.[facility] HospitalIn the event this information is protected by the Federal Confidentiality of Alcohol and Drug Abuse Patient Records regulations: The Federal rules restrict any use of the information to criminally investigate or prosecute any alcohol or drug abuse patient.[facility] HospitalIn the event this information is protected by the Federal Confidentiality of Alcohol and Drug Abuse Patient Records regulations: The Federal rules restrict any use of the information to criminally investigate or prosecute any alcohol or drug abuse patient.[facility] HospitalIn the event this information is protected by the Federal Confidentiality of Alcohol and Drug Abuse Patient Records regulations: The Federal rules restrict any use of the information to criminally investigate or prosecute any alcohol or drug abuse patient.[facility] HospitalIn the event this information is protected by the Federal Confidentiality of Alcohol and Drug Abuse Patient Records regulations: The Federal rules restrict any use of the information to criminally investigate or prosecute any alcohol or drug abuse patient.[facility] HospitalIn the event this information is protected by the Federal Confidentiality of Alcohol and Drug Abuse Patient Records regulations: The Federal rules restrict any use of the information to criminally investigate or prosecute any alcohol or drug abuse patient.[facility] HospitalIn the event this information is protected by the Federal Confidentiality of Alcohol and Drug Abuse Patient Records regulations: The Federal rules restrict any use of the information to criminally investigate or prosecute any alcohol or drug abuse patient.[facility] HospitalIn the event this information is protected by the Federal Confidentiality of Alcohol and Drug Abuse Patient Records regulations: The Federal rules restrict any use of the information to criminally investigate or prosecute any alcohol or drug abuse patient.[facility] HospitalIn the event this information is protected by the Federal Confidentiality of Alcohol and Drug Abuse Patient Records regulations: The Federal rules restrict any use of the information to criminally investigate or prosecute any alcohol or drug abuse patient.[facility] HospitalIn the event this information is protected by the Federal Confidentiality of Alcohol and Drug Abuse Patient Records regulations: The Federal rules restrict any use of the information to criminally investigate or prosecute any alcohol or drug abuse patient.[facility] HospitalIn the event this information is protected by the Federal Confidentiality of Alcohol and Drug Abuse Patient Records regulations: The Federal rules restrict any use of the information to criminally investigate or prosecute any alcohol or drug abuse patient.[facility] HospitalIn the event this information is protected by the Federal Confidentiality of Alcohol and Drug Abuse Patient Records regulations: The Federal rules restrict any use of the information to criminally investigate or prosecute any alcohol or drug abuse patient.[facility] HospitalIn the event this information is protected by the Federal Confidentiality of Alcohol and Drug Abuse Patient Records regulations: The Federal rules restrict any use of the information to criminally investigate or prosecute any alcohol or drug abuse patient.[facility] HospitalIn the event this information is protected by the Federal Confidentiality of Alcohol and Drug Abuse Patient Records regulations: The Federal rules restrict any use of the information to criminally investigate or prosecute any alcohol or drug abuse patient.[facility] HospitalIn the event this information is protected by the Federal Confidentiality of Alcohol and Drug Abuse Patient Records regulations: The Federal rules restrict any use of the information to criminally investigate or prosecute any alcohol or drug abuse patient.[facility] HospitalIn the event this information is protected by the Federal Confidentiality of Alcohol and Drug Abuse Patient Records regulations: The Federal rules restrict any use of the information to criminally investigate or prosecute any alcohol or drug abuse patient.[facility] HospitalIn the event this information is protected by the Federal Confidentiality of Alcohol and Drug Abuse Patient Records regulations: The Federal rules restrict any use of the information to criminally investigate or prosecute any alcohol or drug abuse patient.[facility] HospitalIn the event this information is protected by the Federal Confidentiality of Alcohol and Drug Abuse Patient Records regulations: The Federal rules restrict any use of the information to criminally investigate or prosecute any alcohol or drug abuse patient.[facility] HospitalIn the event this information is protected by the Federal Confidentiality of Alcohol and Drug Abuse Patient Records regulations: The Federal rules restrict any use of the information to criminally investigate or prosecute any alcohol or drug abuse patient.[facility] HospitalIn the event this information is protected by the Federal Confidentiality of Alcohol and Drug Abuse Patient Records regulations: The Federal rules restrict any use of the information to criminally investigate or prosecute any alcohol or drug abuse patient.[facility] HospitalIn the event this information is protected by the Federal Confidentiality of Alcohol and Drug Abuse Patient Records regulations: The Federal rules restrict any use of the information to criminally investigate or prosecute any alcohol or drug abuse patient.[facility] HospitalIn the event this information is protected by the Federal Confidentiality of Alcohol and Drug Abuse Patient Records regulations: The Federal rules restrict any use of the information to criminally investigate or prosecute any alcohol or drug abuse patient.[facility] HospitalIn the event this information is protected by the Federal Confidentiality of Alcohol and Drug Abuse Patient Records regulations: The Federal rules restrict any use of the information to criminally investigate or prosecute any alcohol or drug abuse patient.[facility] HospitalIn the event this information is protected by the Federal Confidentiality of Alcohol and Drug Abuse Patient Records regulations: The Federal rules restrict any use of the information to criminally investigate or prosecute any alcohol or drug abuse patient.[facility] HospitalIn the event this information is protected by the Federal Confidentiality of Alcohol and Drug Abuse Patient Records regulations: The Federal rules restrict any use of the information to criminally investigate or prosecute any alcohol or drug abuse patient.[facility] HospitalIn the event this information is protected by the Federal Confidentiality of Alcohol and Drug Abuse Patient Records regulations: The Federal rules restrict any use of the information to criminally investigate or prosecute any alcohol or drug abuse patient.[facility] HospitalIn the event this information is protected by the Federal Confidentiality of Alcohol and Drug Abuse Patient Records regulations: The Federal rules restrict any use of the information to criminally investigate or prosecute any alcohol or drug abuse patient.[facility] HospitalIn the event this information is protected by the Federal Confidentiality of Alcohol and Drug Abuse Patient Records regulations: The Federal rules restrict any use of the information to criminally investigate or prosecute any alcohol or drug abuse patient.[facility] HospitalIn the event this information is protected by the Federal Confidentiality of Alcohol and Drug Abuse Patient Records regulations: The Federal rules restrict any use of the information to criminally investigate or prosecute any alcohol or drug abuse patient.[facility] HospitalIn the event this information is protected by the Federal Confidentiality of Alcohol and Drug Abuse Patient Records regulations: The Federal rules restrict any use of the information to criminally investigate or prosecute any alcohol or drug abuse patient.[facility] HospitalIn the event this information is protected by the Federal Confidentiality of Alcohol and Drug Abuse Patient Records regulations: The Federal rules restrict any use of the information to criminally investigate or prosecute any alcohol or drug abuse patient.[facility] HospitalIn the event this information is protected by the Federal Confidentiality of Alcohol and Drug Abuse Patient Records regulations: The Federal rules restrict any use of the information to criminally investigate or prosecute any alcohol or drug abuse patient.[facility] HospitalIn the event this information is protected by the Federal Confidentiality of Alcohol and Drug Abuse Patient Records regulations: The Federal rules restrict any use of the information to criminally investigate or prosecute any alcohol or drug abuse patient.[facility] HospitalIn the event this information is protected by the Federal Confidentiality of Alcohol and Drug Abuse Patient Records regulations: The Federal rules restrict any use of the information to criminally investigate or prosecute any alcohol or drug abuse patient.[facility] HospitalIn the event this information is protected by the Federal Confidentiality of Alcohol and Drug Abuse Patient Records regulations: The Federal rules restrict any use of the information to criminally investigate or prosecute any alcohol or drug abuse patient.[facility] HospitalIn the event this information is protected by the Federal Confidentiality of Alcohol and Drug Abuse Patient Records regulations: The Federal rules restrict any use of the information to criminally investigate or prosecute any alcohol or drug abuse patient.[facility] HospitalIn the event this information is protected by the Federal Confidentiality of Alcohol and Drug Abuse Patient Records regulations: The Federal rules restrict any use of the information to criminally investigate or prosecute any alcohol or drug abuse patient.[facility] HospitalIn the event this information is protected by the Federal Confidentiality of Alcohol and Drug Abuse Patient Records regulations: The Federal rules restrict any use of the information to criminally investigate or prosecute any alcohol or drug abuse patient.[facility] HospitalIn the event this information is protected by the Federal Confidentiality of Alcohol and Drug Abuse Patient Records regulations: The Federal rules restrict any use of the information to criminally investigate or prosecute any alcohol or drug abuse patient.[facility] HospitalIn the event this information is protected by the Federal Confidentiality of Alcohol and Drug Abuse Patient Records regulations: The Federal rules restrict any use of the information to criminally investigate or prosecute any alcohol or drug abuse patient.[facility] HospitalIn the event this information is protected by the Federal Confidentiality of Alcohol and Drug Abuse Patient Records regulations: The Federal rules restrict any use of the information to criminally investigate or prosecute any alcohol or drug abuse patient.[facility] HospitalIn the event this information is protected by the Federal Confidentiality of Alcohol and Drug Abuse Patient Records regulations: The Federal rules restrict any use of the information to criminally investigate or prosecute any alcohol or drug abuse patient.[facility] HospitalIn the event this information is protected by the Federal Confidentiality of Alcohol and Drug Abuse Patient Records regulations: The Federal rules restrict any use of the information to criminally investigate or prosecute any alcohol or drug abuse patient.[facility] HospitalIn the event this information is protected by the Federal Confidentiality of Alcohol and Drug Abuse Patient Records regulations: The Federal rules restrict any use of the information to criminally investigate or prosecute any alcohol or drug abuse patient.[facility] HospitalIn the event this information is protected by the Federal Confidentiality of Alcohol and Drug Abuse Patient Records regulations: The Federal rules restrict any use of the information to criminally investigate or prosecute any alcohol or drug abuse patient.[facility] HospitalIn the event this information is protected by the Federal Confidentiality of Alcohol and Drug Abuse Patient Records regulations: The Federal rules restrict any use of the information to criminally investigate or prosecute any alcohol or drug abuse patient.[facility] HospitalIn the event this information is protected by the Federal Confidentiality of Alcohol and Drug Abuse Patient Records regulations: The Federal rules restrict any use of the information to criminally investigate or prosecute any alcohol or drug abuse patient.[facility] HospitalIn the event this information is protected by the Federal Confidentiality of Alcohol and Drug Abuse Patient Records regulations: The Federal rules restrict any use of the information to criminally investigate or prosecute any alcohol or drug abuse patient.[facility] HospitalIn the event this information is protected by the Federal Confidentiality of Alcohol and Drug Abuse Patient Records regulations: The Federal rules restrict any use of the information to criminally investigate or prosecute any alcohol or drug abuse patient.[facility] HospitalIn the event this information is protected by the Federal Confidentiality of Alcohol and Drug Abuse Patient Records regulations: The Federal rules restrict any use of the information to criminally investigate or prosecute any alcohol or drug abuse patient.[facility] HospitalIn the event this information is protected by the Federal Confidentiality of Alcohol and Drug Abuse Patient Records regulations: The Federal rules restrict any use of the information to criminally investigate or prosecute any alcohol or drug abuse patient.[facility] HospitalIn the event this information is protected by the Federal Confidentiality of Alcohol and Drug Abuse Patient Records regulations: The Federal rules restrict any use of the information to criminally investigate or prosecute any alcohol or drug abuse patient.[facility] HospitalIn the event this information is protected by the Federal Confidentiality of Alcohol and Drug Abuse Patient Records regulations: The Federal rules restrict any use of the information to criminally investigate or prosecute any alcohol or drug abuse patient.[facility] HospitalIn the event this information is protected by the Federal Confidentiality of Alcohol and Drug Abuse Patient Records regulations: The Federal rules restrict any use of the information to criminally investigate or prosecute any alcohol or drug abuse patient.[facility] HospitalIn the event this information is protected by the Federal Confidentiality of Alcohol and Drug Abuse Patient Records regulations: The Federal rules restrict any use of the information to criminally investigate or prosecute any alcohol or drug abuse patient.[facility] Reason for Visit (unrecogniz ed section and content) Reason Comments New Patient Specialty Diagnoses / Procedures Referred By Contac t Referred To Contact Oncology Diagnoses Malignant neoplasm of ascending colon (HCC) Procedures CONSULT TO ONCOLOGY OFFICE/OUTPATIENT [facility] MDM 60 [place] [address] [place] [address] [place] [address] [place] [id number] Referral ID Status Reason Start Date Expiration Date V isits Requested Visits Authorized [id number] Closed PCP Requested Referral 01/18/2024 01/17/2025 1 1 Specialty Diagnoses / Procedures Referred By Contac t Referred To Contact Pulmonary Disease Diagnoses Lung nodule Procedures CONSULT TO LUNG NODULE CLINIC OFFICE/OUTPATIENT [facility] 60 MINUTES Amish Xavier, LETI.A[employer]ATIC CENTRE MANAGER [address] [place] [address] Referral ID Status Reason Start Date Expiration Date V isits Requested Visits Authorized [id number] Closed PCP Requested Referral 12/04/2023 12/03/2024 1 1 Reason Comments Epilepsy Follow Up Reason Comments Outside Labs Results [facility] Reason Comments Seizures Reason [...] Referred By Contac t Referred To Contact [facility] Diagnoses Focal epilepsy (HCC) Procedures PROVIDER ORDERED FOLLOW UP OFFICE/OUTPATIENT [facility] MDM 60 MINUTES Ashly Lange, GREEN END MAN.AQUATIC CENTRE MANAGER [address] [place] [address] [facility] [place] [address] [place] [address] Referral ID Status Reason Start Date Expiration Date Visits Requested Visits Authorized [id number] Authorized Financial Clearance Required - Self Pay Patient Cleared - CCN Request Cancelled - Pre Qualified for HCAP/501R/FA or Patient Payment Collected Patient Cleared - Qualified HCAP/[id number] 10/17/2023 01/15/2024 99 [phone] Reason Comments Appointment Reason Comments Consult Perforated appendix Specialty Diagnoses / Procedures Referred By Contac t Referred To Contact General Surgery Diagnoses Perforated appendix Procedures CONSULT TO GENERAL SURGERY OFFICE/OUTPATIENT [facility] MDM 60 MINUTES Kailyn Coleman MD [address] [place] [phone] Referral ID Status Reason Start Date Expiration Date V isits Requested Visits Authorized [id number] Closed PCP Requested Referral 10/11/2023 10/10/2024 1 1 Reason Comments Anesthesia Consult Reason Comments Patient Question Returning Patient's Call Senior Counsel Commercial - Other Reason Comments Home Care CONFIRMATION CALL Reason Comments Home Care Md Reason Comments Nausea vomitting Senior Counsel Commercial - Other Returning Patient's Call Reason Comments Home Care Spoke with patients friend and SOC confirmed for 01/11/24 Reason Comments Home Care Medication interacti on Reason Comments Patient Update Reason Comments New Patient Focal epilepsy Specialty Diagnoses / Procedures Referred By Contac t Referred To Contact Neurology Diagnoses Focal epilepsy (HCC) Procedures CONSULT TO NEUROLOGY OFFICE/OUTPATIENT [facility] MDM 60 MINUTES Cristobal Junior, GREEN END MAN.A[employer]IC CENTRE MANAGER [address] [place] [address] Referral ID Status Reason Start Date Expiration Date V isits Requested Visits Authorized [id number] Closed PCP Requested Referral 10/23/2023 10/22/2024 1 1 Reason Comments Abdominal Mass Reason Comments Home Care Unmade PT visit Reason Comments Radiology CT Specialty Diagnoses / Procedures Referred By Contac t Referred To Contact CT IMAGING Diagnoses Intra-abdominal and pelvic swelling, mass and lump, unspecified site Procedures CT CHEST WO IVCON DIAGNOSTIC COMPUTED TOMOGRAPHY THORAX W/O CNTRST Tessa Spring MD [address] [place] [address] Ct Imaging [place] [address] Referral ID Status Reason Start Date Expiration Date V isits Requested Visits Authorized [id number] Closed Auto-Generate d Referral 01/18/2024 02/16/2025 1 [...] ABD & PELVIS W/CONTRAST Tessa Spring MD [address] [place] [address] Ct Imaging [place] [address] Referral ID Status Reason Start Date Expiration Date V isits Requested Visits Authorized [id number] Closed Auto-Generate d Referral 03/07/2024 04/06/2025 1 1 Specialty Diagnoses / Procedures Referred By Contac t Referred To Contact CT IMAGING Diagnoses Right lower quadrant abdominal pain Procedures CT ABD/PEL W IVCON CT ABD & PELVIS W/CONTRAST Tessa Spring MD [address] [facility] [place] [address] Ct Imaging [place] [address] Reason Onset Date Comments SPP Oral Oncology/hematology [...] capecitabine Specialty Diagnoses / Procedures [facility] Diagnoses Lung nodules Procedures CT CHEST WO IVCON DIAGNOSTIC COMPUTED TOMOGRAPHY THORAX W/O CNTRSFe Barney APRN.AQUATIC CENTRE MANAGER [address] [place] [address] Phone: tel: fax: [place] [address] Referral ID Status Reason Start Date Expiration Date V isits Requested Visits Authorized [id number] Closed Auto-Generate d Referral 04/27/2024 04/18/2025 1 [...] - Medication Refill 08/07/2024 capecitabine Reason Comments Senior Counsel Commercial - Hospital Follow Up Reason Comments Home Care MD to Follow Reason Comments Home Care CONFIRMATION CALL Reason Comments [id number] palliative care f/u Reason Comments Post Op Senior Counsel Commercial - Other Returning Patient's Call Reason Comments Post Op Follow Up 08/28/24 ex lap, mass resection Reason Comments Symptom Management Reason Comments Senior Counsel Commercial - Other Introduction Reason Comments AVS 09/25 Reason Comments Art Therapy Referral Reason Comments Patient Question Senior Counsel Commercial - Other Returning Patient's Call Reason Comments Blood Draw (CVAD) Reason Comments Chemotherapy Treatment Specialty Diagnoses / Procedures [facility] Referred To Contact Diagnoses Adenocarcinoma of cecum (HCC) Jimmie Poole MD [address] [place] [address] Phone: tel: Hematology/Oncology [address] [place] [address] Phone: tel: fax: Referral ID Status Reason Start Date Expiration Date V isits Requested Visits Authorized [id number] Authorized 10/09/2024 01/07/2025 99 99 Reason Comments Non-Chemotherapy Treatment Reason Comments Senior Counsel Commercial - Other Returning Patient's Call Reason Onset Date Comments Refill Request 11/10/2024 Reason Comments Care Coordination Follow up Call Reason Comments 31818 Pallative Medicine Reason Comments Critical Care Transport Reason Onset Date Comments Refill Request 11/25/2024 Reason Comments Care Coordination Diarrhea Reason Comments Care Coordination patient update Reason Comments Established Patient Reason Comments Nausea Anorexia Pain Care Teams (unrecognized sec tion and content) Fuel Testing Technician Relationship Specialty Start Date End Date Mary Moss PCP - General Family Practice 05/28/18 Adrian Wallace, DO Referring Neurology 11/13/18 Fuel Testing Technician Relationship Specialty Start Date End Date Mary Moss PCP - General Family Practice 05/28/18 Adrian Wallace DO Referring Neurology 11/13/18 Fuel Testing Technician Relationship Specialty Start Date End Date Mary Moss PCP - General Family Practice 05/28/18 Adrian Wallace DO Referring Neurology 11/13/18 Fuel Testing Technician Relationship Specialty Start Date End Date Mary Moss PCP - General Family Medicine 05/28/18 Adrian Wallace DO Referring Neurology 11/13/18 Fuel Testing Technician Relationship Specialty Start Date End Date Mary Moss PCP - General Family Medicine 05/28/18 Adrian Wallace DO Referring Neurology 11/13/18 Fuel Testing Technician Relationship Specialty Start Date End Date Mary Moss PCP - General Family Medicine 05/28/18 Adrian Wallace DO Referring Neurology 11/13/18 Team Status: Active Member Role Status Dates [facility] Family Provider Active [facility] Primary Care Provider A ctive Team Status: Inactive Member Role Status Dates [facility] Primary Care Provider A ctive CHRISTIE HYLTON MD Attending Provider, Referring Prov ider Active Fuel Testing Technician Relationship Specialty Start Date End Date Mary Moss PCP - General Family Medicine 05/28/18 Adrian Wallace DO Referring Neurology 11/13/18 Fuel Testing Technician Relationship Specialty Start Date End Date Mary Moss PCP - General Family Medicine 05/28/18 Adrian Wallace DO Referring Neurology 11/13/18 Fuel Testing Technician Relationship Specialty Start Date End Date Mary Moss PCP - General Family Medicine 05/28/18 Adrian Wallace DO Referring Neurology 11/13/18 Fuel Testing Technician Relationship Specialty Start Date End Date Mary Moss PCP - General Family Medicine 05/28/18 Adrian Wallace DO Referring Neurology 11/13/18 Fuel Testing Technician Relationship Specialty Start Date End Date Mary Moss PCP - General Family Medicine 05/28/18 Adrian Wallace DO Referring Neurology 11/13/18 Fuel Testing Technician Relationship Specialty Start Date End Date Mary Moss PCP - General Family Medicine 05/28/18 Adrian Wallace DO Referring Neurology 11/13/18 Fuel Testing Technician Relationship Specialty Start Date End Date Mary Moss PCP - General Family Medicine 05/28/18 Adrian Wallace DO Referring Neurology 11/13/18 Fuel Testing Technician Relationship Specialty Start Date End Date Mary Moss PCP - General Family Medicine 05/28/18 Adrian Wallace DO Referring Neurology 11/13/18 Fuel Testing Technician Relationship Specialty Start Date End Date Mary Moss PCP - General Family Medicine 05/28/18 Adrian Wallace DO Referring Neurology 11/13/18 Fuel Testing Technician Relationship Specialty Start Date End Date Mary Moss PCP - General Family Medicine 05/28/18 Adrian Wallace DO Referring Neurology 11/13/18 Fuel Testing Technician Relationship Specialty Start Date End Date Mary Moss PCP - General Family Medicine 05/28/18 Adrian Wallace DO Referring Neurology 11/13/18 Fuel Testing Technician Relationship Specialty Start Date End Date Mary Moss PCP - General Family Medicine 05/28/18 Adrian Wallace DO Referring Neurology 11/13/18 Fuel Testing Technician Relationship Specialty Start Date End Date Mary Moss PCP - General Family Medicine 05/28/18 Adrian Wallace DO Referring Neurology 11/13/18 Fuel Testing Technician Relationship Specialty Start Date End Date Mary Moss PCP - General Family Medicine 05/28/18 Adrian Wallace DO Referring Neurology 11/13/18 Fuel Testing Technician Relationship Specialty Start Date End Date Mary Moss PCP - General Family Medicine 05/28/18 Adrian Wallace DO Referring Neurology 11/13/18 Fuel Testing Technician Relationship Specialty Start Date End Date Mary Moss PCP - General Family Medicine 05/28/18 Adrian Wallace DO Referring Neurology 11/13/18 Fuel Testing Technician Relationship Specialty Start Date End Date Mary Moss PCP - General Family Medicine 05/28/18 Adrian Wallace DO Referring Neurology 11/13/18 Fuel Testing Technician Relationship Specialty Start Date End Date Mary Moss PCP - General Family Medicine 05/28/18 Adrian Wallace DO Referring Neurology 11/13/18 Fuel Testing Technician Relationship Specialty Start Date End Date Mary Moss PCP - General Family Medicine 05/28/18 Adrian Wallace DO Referring Neurology 11/13/18 Fuel Testing Technician Relationship Specialty Start Date End Date Mary Moss CNP PCP - General Family Medicine 05/28/18 Adrian Wallace DO Referring Neurology 11/13/18 Fuel Testing Technician Relationship Specialty Start Date End Date Mary Moss CNP PCP - General Family Medicine 05/28/18 Adrian Wallace DO Referring Neurology 11/13/18 Fuel Testing Technician Relationship Specialty Start Date End Date Mary Moss CNP PCP - General Family Medicine 05/28/18 Adrian Wallace DO Referring Neurology 11/13/18 Fuel Testing Technician Relationship Specialty Start Date End Date Mary Moss CNP PCP - General Family Medicine 05/28/18 Adrian Wallace DO Referring Neurology 11/13/18 Fuel Testing Technician Relationship Specialty Start Date End Date Mary Moss CNP PCP - General Family Medicine 05/28/18 Adrian Wallace DO Referring Neurology 11/13/18 Braxton Knowles MD [address] [place] [address] Referring General Surgery 01/09/24 Christie Sánchez NP [address] [place] [address] Home Care Provider Family Medicine 01/09/24 Joe Williamson, REAL [address] [place] [address] Senior Net Developer Post Acute Care 01/09/24 Fuel Testing Technician Relationship Specialty Start Date End Date Mary Moss CNP PCP - General Family Medicine 05/28/18 Adrian Wallace DO Referring Neurology 11/13/18 Braxton Knowles MD [address] [place] [address] Referring General Surgery 01/09/24 Christie Sánchez NP [address] [place] [address] Home Care Provider Family Medicine 01/09/24 Joe Williamson RN [address] [place], [place] [id number] Senior Net Developer Post Acute Care 01/09/24 Fuel Testing Technician Relationship Specialty Start Date End Date Mary Moss CNP PCP - General Family Medicine 05/28/18 Adrian Wallace DO Referring Neurology 11/13/18 Braxton Knowles MD [facility] [place] [address] Referring General Surgery 01/09/24 Christie Sánchez NP [address] [place] [address] Home Care Provider Family Medicine 01/09/24 Joe Williamson RN [address] [place] [address] Senior Net Developer Post Acute Care 01/09/24 Fuel Testing Technician Relationship Specialty Start Date End Date Mary Moss CNP PCP - General Family Medicine 05/28/18 Adrian Wallace DO Referring Neurology 11/13/18 Braxton Knowles MD [address] [place], [place] [phone] Referring General Surgery 01/09/24 Christie Sánchez NP [address] [place] [address] Home Care Provider Family Medicine 01/09/24 Joe Williamson RN [address] [place], [place] [phone] Senior Net Developer Post Acute Care 01/09/24 Fuel Testing Technician Relationship Specialty Start Date End Date Mary Moss CNP PCP - General Family Medicine 05/28/18 Adrian Wallace DO Referring Neurology 11/13/18 Braxton Knowles MD [address] [place] [address] Referring General Surgery 01/09/24 Christie Sánchez NP [address] [place] [address] Home Care Provider Family Medicine 01/09/24 Joe Williamson RN [address] [place], [place] [phone] Senior Net Developer Post Acute Care 01/09/24 Fuel Testing Technician Relationship Specialty Start Date End Date Mary Moss CNP PCP - General Family Medicine 05/28/18 Adrian Wallace DO Referring Neurology 11/13/18 Braxton Knowles MD [address] [place], [place] [phone] Referring General Surgery 01/09/24 Christie Sánchez NP [address] [place] [address] Home Care Provider Family Medicine 01/09/24 Joe Williamson RN [address] [place], [place] [phone] Senior Net Developer Post Acute Care 01/09/24 Fuel Testing Technician Relationship Specialty Start Date End Date Mary Moss CNP PCP - General Family Medicine 05/28/18 Adrian Wallace DO Referring Neurology 11/13/18 Braxton Knowles MD [address] [place], [place] [phone] Referring General Surgery 01/09/24 Christie Sánchez NP [address] [place] [address] Home Care Provider Family Medicine 01/09/24 Joe Williamson RN [address] [place] [address] Senior Net Developer Post Acute Care 01/09/24 Fuel Testing Technician Relationship Specialty Start Date End Date Mary Moss CNP PCP - General Family Medicine 05/28/18 Adrian Wallace DO Referring Neurology 11/13/18 Braxton Knowles MD [address] [place], [place] [phone] Referring General Surgery 01/09/24 Christie Sánchez NP [address] [place] [address] Home Care Provider Family Medicine 01/09/24 Joe Williamson RN [address] [place], [place] [phone] Senior Net Developer Post Acute Care 01/09/24 Fuel Testing Technician Relationship Specialty Start Date End Date Mary Moss CNP PCP - General Family Medicine 05/28/18 Adrian Wallace DO Referring Neurology 11/13/18 Braxton Knowles MD [facility] [place], [place] [phone] Referring General Surgery 01/09/24 Christie Sánchez NP [address] [place] [address] Home Care Provider Family Medicine 01/09/24 Joe Williamson RN [address] [place], [place] [phone] Senior Net Developer Post Acute Care 01/09/24 Fuel Testing Technician Relationship Specialty Start Date End Date Mary Moss CNP PCP - General Family Medicine 05/28/18 Adrian Wallace DO Referring Neurology 11/13/18 Braxton Knowles MD [address] [place] [address] Referring General Surgery 01/09/24 Christie Sánchez NP [address] [place], [place] [phone] Home Care Provider Family Medicine 01/09/24 Joe Williamson, REAL [address] [place], [place] [phone] Senior Net Developer Post Acute Care 01/09/24 Fuel Testing Technician Relationship Specialty Start Date End Date Mary Moss CNP PCP - General Family Medicine 05/28/18 Adrian Wallace DO Referring Neurology 11/13/18 Fuel Testing Technician Relationship Specialty Start Date End Date Mary Moss CNP PCP - General Family Medicine 05/28/18 Adrian Wallace DO Referring Neurology 11/13/18 Braxton Knowles MD [address] [place] [address] Referring General Surgery 01/09/24 Christie Sánchez NP [address] [place] [address] Home Care Provider Family Medicine 01/09/24 Joe Williamson RN [address] [place], [place] [phone] Senior Net Developer Post Acute Care 01/09/24 Fuel Testing Technician Relationship Specialty Start Date End Date Mary Moss CNP PCP - General Family Medicine 05/28/18 Adrian Wallace DO Referring Neurology 11/13/18 Braxton Knowles MD [address] [place] [address] Referring General Surgery 01/09/24 Christie Sánchez NP [address] [place] [address] [phone] Home Care Provider Family Medicine 01/09/24 [place] [address] [place] [address] [id number] Senior Net Developer Post Acute Care 01/09/24 Fuel Testing Technician Relationship Specialty Start Date End Date Mary Moss CNP PCP - General Family Medicine 05/28/18 Adrian Wallace DO Referring Neurology 11/13/18 Braxton Knowles MD [address] [place] [address] Referring General Surgery 01/09/24 Christie Sánchez NP [address] [place] [address] [phone] Home Care Provider Family Medicine 01/09/24 Joe Williamson RN [address] [place], [place] [phone] Senior Net Developer Post Acute Care 01/09/24 Fuel Testing Technician Relationship Specialty Start Date End Date Mary Moss CNP PCP - General Family Medicine 05/28/18 Adrian Wallace DO Referring Neurology 11/13/18 Braxton Knowles MD [address] [place] [phone] Referring General Surgery 01/09/24 Christie Sánchez NP [facility] [place], [place] [phone] Home Care Provider Family Medicine 01/09/24 Joe Williamson RN [address] [place], [place] [phone] Senior Net Developer Post Acute Care 01/09/24 Fuel Testing Technician Relationship Specialty Start Date End Date Mary Moss CNP PCP - General Family Medicine 05/28/18 Adrian Wallace DO Referring Neurology 11/13/18 Braxton Knowles MD [address] [place] [phone] Referring General Surgery 01/09/24 Christie Sánchez NP [address] [place], [place] [phone] Home Care Provider Family Medicine 01/09/24 Joe Williamson RN [address] [place] [address] Senior Net Developer Post Acute Care 01/09/24 Tessa Spring MD [address] [place] [address] General Surgery 02/01/24 Fuel Testing Technician Relationship Specialty Start Date End Date Mary Moss CNP PCP - General Family Medicine 05/28/18 Adrian Wallace DO Referring Neurology 11/13/18 Braxton Knowles MD [address] [place] [address] Referring General Surgery 01/09/24 Christie Sánchez NP [address] [place] [address] Home Care Provider Family Medicine 01/09/24 Joe Williamson, RN [address] [place], [place] [phone] Senior Net Developer Post Acute Care 01/09/24 Tessa Spring MD [address] [place] [address] General Surgery 02/01/24 Fuel Testing Technician Relationship Specialty Start Date End Date Mary Moss CNP PCP - General Family Medicine 05/28/18 Adrian Wallace DO Referring Neurology 11/13/18 Braxton Knowles MD [address] [place] [address] Referring General Surgery 01/09/24 Christie Sánchez NP [address] [place] [address] Home Care Provider Family Medicine 01/09/24 Joe Williamson, REAL [address] [place], [place] [phone] Senior Net Developer Post Acute Care 01/09/24 Tessa Spring MD [address] [place], [place] [phone] General Surgery 02/01/24 Fuel Testing Technician Relationship Specialty Start Date End Date Mary Moss CNP PCP - General Family Medicine 05/28/18 Adrian Wallace DO Referring Neurology 11/13/18 Braxton Knowles MD [address] [place] [address] Referring General Surgery 01/09/24 Christie Sánchez NP [address] [place] [address] Home Care Provider Family Medicine 01/09/24 Joe Williamson RN [address] [place], [place] [phone] Senior Net Developer Post Acute Care 01/09/24 Tessa Spring MD [address] [place] [address] General Surgery 02/01/24 Fuel Testing Technician Relationship Specialty Start Date End Date Mary Moss CNP PCP - General Family Medicine 05/28/18 Adrian Wallace DO Referring Neurology 11/13/18 Braxton Knowles MD [address] [place] [address] Referring General Surgery 01/09/24 Christie Sánchze NP [address] [place] [address] [phone] Home Care Provider Family Medicine 01/09/24 Joe Williamson, REAL [address] [place], [place] [phone] Senior Net Developer Post Acute Care 01/09/24 Tessa Spring MD [address] [place] [address] General Surgery 02/01/24 Fuel Testing Technician Relationship Specialty Start Date End Date Mary Moss, LUZMA PCP - General Family Medicine 05/28/18 Adrian Wallace DO Referring Neurology 11/13/18 Braxton Knowles MD [address] [place] [address] Referring General Surgery 01/09/24 Christie Sán[place] [address] [place] [address] [id number] Home Care Provider Family Medicine 01/09/24 Tessa Spring MD [address] [place] [address] General Surgery 02/01/24 Fuel Testing Technician Relationship Specialty Start Date End Date Mary Moss CNP PCP - General Family Medicine 05/28/18 Adrian Wallace DO Referring Neurology 11/13/18 [place] [address] [place], [place] [phone] Referring General Surgery 01/09/24 Christie Sánchez NP [address] [place] [address] Home Care Provider Family Medicine 01/09/24 [place] [address] [place] [address] General Surgery 02/01/24 Fuel Testing Technician Relationship Specialty Start Date End Date Mary Moss CNP PCP - General Family Medicine 05/28/18 Adrian Wallace DO Referring Neurology 11/13/18 Braxton Knowles MD [address] [place] [address] Referring General Surgery 01/09/24 Christie Sánchez NP [address] [place] [address] Home Care Provider Family Medicine 01/09/24 Tessa Spring MD [address] [place] [address] General Surgery 02/01/24 Fuel Testing Technician Relationship Specialty Start Date End Date Mary Moss CNP PCP - General Family Medicine 05/28/18 Adrian Wallace DO Referring Neurology 11/13/18 [place] [address] [place] [address] Referring General Surgery 01/09/24 Christie Sánchez NP [address] [place], [place] [phone] Home Care Provider Family Medicine 01/09/24 Tessa Spring MD [address] [place] [address] General Surgery 02/01/24 Fuel Testing Technician Relationship Specialty Start Date End Date Mary Moss, AQUATIC CENTRE MANAGER PCP - General Family Medicine 05/28/18 Adrian Wallace DO Referring Neurology 11/13/18 Braxton Knowles MD [address] [place] [address] Referring General Surgery 01/09/24 Christie Sánchez NP [address] [place] [address] [phone] Home Care Provider Family Medicine 01/09/24 Tessa Spring MD [address] [place] [address] General Surgery 02/01/24 Amber Valverde LISW [address] [place] [address] Reel Worker Hematology/Oncology 02/19/24 Fuel Testing Technician Relationship Specialty Start Date End Date Mary Moss CNP PCP - General Family Medicine 05/28/18 Adrian Wallace DO Referring Neurology 11/13/18 Braxton Knowles MD [address] [place] [address] Referring General Surgery 01/09/24 Christie Sánchez NP [address] [facility] [place] [address] Home Care Provider Family Medicine 01/09/24 Tessa Spring MD [address] [place] [address] General Surgery 02/01/24 Amber Valverde LISW [address] [place] [address] Reel Worker Hematology/Oncology 02/19/24 Jimmie Poole MD [address] [place] [address] Hematology/Oncology 02/21/24 Kaet Castillo, REAL [address] [place] [address] Specialty Senior Counsel Commercial Hematology/Oncology 02/21/24 Fuel Testing Technician Relationship Specialty Start Date End Date Mary Moss CNP PCP - General Family Medicine 05/28/18 Adrian Wallace DO Referring Neurology 11/13/18 Braxton Knowles MD [address] [place] [phone] Referring General Surgery 01/09/24 Christie Sánchez NP [address] [place] [address] Home Care Provider Family Medicine 01/09/24 Tessa Spring MD [address] [place] [phone] General Surgery 02/01/24 Amber Valverde LISW [address] [place] [address] Reel Worker Hematology/Oncology 02/19/24 Jimmie Poole MD [address] [place] [address] Hematology/Oncology 02/21/24 Kate Castillo, REAL [address] [place] [address] Specialty Senior Counsel Commercial Hematology/Oncology 02/21/24 Fuel Testing Technician Relationship Specialty Start Date End Date Mary Moss CNP PCP - General Family Medicine 05/28/18 Adrian Wallace DO Referring Neurology 11/13/18 Braxton Knowles MD [address] [place] [address] Referring General Surgery 01/09/24 Christie Sánchez NP [facility] [place], [place] [phone] Home Care Provider Family Medicine 01/09/24 Tessa Spring MD [address] [place] [address] General Surgery 02/01/24 Amber Valverde LISW [address] [place] [address] Reel Worker Hematology/Oncology 02/19/24 Jimmie Poole MD [address] [place] [address] Hematology/Oncology 02/21/24 Kate Castillo, RN [address] [place] [address] Specialty Senior Counsel Commercial Hematology/Oncology 02/21/24 Fuel Testing Technician Relationship Specialty Start Date End Date Mary Moss CNP PCP - General Family Medicine 05/28/18 Adrian Wallace DO Referring Neurology 11/13/18 Braxton Knowles MD [address] [place] [address] Referring General Surgery 01/09/24 Christie Sánchez NP [address] [place] [address] Home Care Provider Family Medicine 01/09/24 Joe Williamson, REAL [address] [place] [address] Senior Net Developer Post Acute Care 01/09/24 Fuel Testing Technician Relationship Specialty Start Date End Date Mary Moss CNP PCP - General Family Medicine 05/28/18 Adrian Wallace DO Referring Neurology 11/13/18 Braxton Knowles MD [address] [place] [address] Referring General Surgery 01/09/24 Christie Sánchez NP [address] [place] [address] Home Care Provider Family Medicine 01/09/24 Tessa Spring MD [address] [place] [address] General Surgery 02/01/24 Amber Valverde LISW [address] [place] [address] Reel Worker Hematology/Oncology 02/19/24 Jimmie Poole MD [address] [facility] [place] [address] Hematology/Oncology 02/21/24 Kate Castillo RN [address] [place], [place] [phone] Specialty Senior Counsel Commercial Hematology/Oncology 02/21/24 Fuel Testing Technician Relationship Specialty Start Date End Date Mary Moss CNP PCP - General Family Medicine 05/28/18 Adrian Wallace DO Referring Neurology 11/13/18 Braxton Knowles MD [address] [place] [phone] Referring General Surgery 01/09/24 Christie Sánchez NP [address] [place], [place] 482501 Home Care Provider Family Medicine 01/09/24 Tessa Spring MD [address] [place] [address] General Surgery 02/01/24 Amber Valverde LISW [address] [place] [address] Reel Worker Hematology/Oncology 02/19/24 Jimmie Poole MD [address] [place] [address] Hematology/Oncology 02/21/24 Kate Castillo, REAL [address] [place] [address] Specialty Senior Counsel Commercial Hematology/Oncology 02/21/24 Fuel Testing Technician Relationship Specialty Start Date End Date Mary Moss, LUZMA PCP - General Family Medicine 05/28/18 Adrian Wallace DO Referring Neurology 11/13/18 Braxton Knowles MD [address] [place] [phone] Referring General Surgery 01/09/24 Christie Sánchez NP [address] [place] [address] Home Care Provider Family Medicine 01/09/24 Tessa Spring MD [address] [place] [phone] General Surgery 02/01/24 Amber Valverde LISW [address] [place] [address] Reel Worker Hematology/Oncology 02/19/24 Jimmie Poole MD [address] [place] [address] Hematology/Oncology 02/21/24 Kate Castillo, REAL [address] [place] [address] Specialty Senior Counsel Commercial Hematology/Oncology 02/21/24 Fuel Testing Technician Relationship Specialty Start Date End Date Mary Moss CNP PCP - General Family Medicine 05/28/18 Adrian Wallace DO Referring Neurology 11/13/18 Braxton Knowles MD [address] [id number] Referring General Surgery 01/09/24 Christie Sánchez NP [address] [place] [address] Home Care Provider Family Medicine 01/09/24 Tessa Spring MD [address] [place] [address] General Surgery 02/01/24 Amber Valverde LISW [address] [place] [address] Reel Worker Hematology/Oncology 02/19/24 Jimmie Poole MD [address] [facility] [place], [place] [id number] Hematology/Oncology 02/21/24 Kate Castillo, REAL [address] [facility], [place] [id number] Specialty Senior Counsel Commercial Hematology/Oncology 02/21/24 Fuel Testing Technician Relationship Specialty Start Date End Date Mary Moss CNP PCP - General Family Medicine 05/28/18 Adrian Wallace DO Referring Neurology 11/13/18 Braxton Knowles MD [address] [place] [address] Referring General Surgery 01/09/24 Christie Sánchez NP [address] [place] [address] Home Care Provider Family Medicine 01/09/24 Tessa Spring MD [address] [place] [address] General Surgery 02/01/24 Amber Valverde LISW [address] [place] [address] Reel Worker Hematology/Oncology 02/19/24 Jimmie Poole MD [address] [place], [place] [address] Hematology/Oncology 02/21/24 Kate Castillo, REAL [address] [place] [address] Specialty Senior Counsel Commercial Hematology/Oncology 02/21/24 Fuel Testing Technician Relationship Specialty Start Date End Date Mary Moss CNP PCP - General Family Medicine 05/28/18 Adrian Wallace DO Referring Neurology 11/13/18 Braxton Knowles MD [address] [place] [address] Referring General Surgery 01/09/24 Christie Sánchez NP [address] [facility] [place], [place] [id number] Home Care Provider Family Medicine 01/09/24 Tessa Spring MD [address] [place] [address] General Surgery 02/01/24 Amber Valverde LISW [address] [place] [address] Reel Worker Hematology/Oncology 02/19/24 Jimmie Poole MD [address] [facility] [address] Hematology/Oncology 02/21/24 Kate Castillo, REAL [address] [facility] [place], [place] [phone] Specialty Senior Counsel Commercial Hematology/Oncology 02/21/24 Fuel Testing Technician Relationship Specialty Start Date End Date Mary Moss CNP PCP - General Family Medicine 05/28/18 Adrian Wallace DO Referring Neurology 11/13/18 Braxton Knowles MD [address] [phone] Referring General Surgery 01/09/24 Christie Sánchez NP [address] [place] [address] Home Care Provider Family Medicine 01/09/24 Tessa Spring MD [address] [id number] General Surgery 02/01/24 Amber Valverde LISW [address] [place] [address] Reel Worker Hematology/Oncology 02/19/24 Jimmie Poole MD [address] [place] [address] Hematology/Oncology 02/21/24 Kate Castillo, REAL [address] [place] [address] Specialty Senior Counsel Commercial Hematology/Oncology 02/21/24 Fuel Testing Technician Relationship Specialty Start Date End Date Mary Moss CNP PCP - General Family Medicine 05/28/18 Adrian Wallace DO Referring Neurology 11/13/18 [place] [address] [place] [address] Referring General Surgery 01/09/24 Christie Sánchez NP [address] [place] [address] 895741 Home Care Provider Family Medicine 01/09/24 Tessa Spring MD [address] [place] [address] General Surgery 02/01/24 Amber Valverde LISW [address] [place] [address] Reel Worker Hematology/Oncology 02/19/24 Jimmie Poole MD [address] [place] [address] Hematology/Oncology 02/21/24 Kate Castillo, RN [address] [place] [address] Specialty Senior Counsel Commercial Hematology/Oncology 02/21/24 Fuel Testing Technician Relationship Specialty Start Date End Date Mary Moss CNP PCP - General Family Medicine 05/28/18 Adrian Wallace DO Referring Neurology 11/13/18 Braxton Knowles MD [address] [place] [address] Referring General Surgery 01/09/24 Christie Sánchez NP [address] [place] [address] 389591 Home Care Provider Family Medicine 01/09/24 Tessa Spring MD [address] [place] [address] General Surgery 02/01/24 Amber Valverde LISW [address] [place] [address] Reel Worker Hematology/Oncology 02/19/24 Jimmie Poole MD [address] [facility], [place] 789381 Hematology/Oncology 02/21/24 Kate Castillo, REAL [address] [facility], [place] 475251 Specialty Senior Counsel Commercial Hematology/Oncology 02/21/24 Fuel Testing Technician Relationship Specialty Start Date End Date Christie Sánchez NP [address] [place] [address] PCP - General Family Medicine 04/16/24 Adrian Wallace DO Referring Neurology 11/13/18 Braxton Knowles MD [address] [place] [address] Referring General Surgery 01/09/24 Christie Sánchez NP [address] [place] [address] Home Care Provider Family Medicine 01/09/24 Tessa Spring MD [address] [place] [address] General Surgery 02/01/24 Amber Valverde LISW [address] [place] [address] Reel Worker Hematology/Oncology 02/19/24 Jimmie Poole MD [address] [place] [address] Hematology/Oncology 02/21/24 Kate Castillo, RN [address] [place] [address] Specialty Senior Counsel Commercial Hematology/Oncology 02/21/24 Fuel Testing Technician Relationship Specialty Start Date End Date Christie Sánchez NP [address] [facility] [place] [address] PCP - General Family Medicine 04/16/24 Adrian Wallace DO Referring Neurology 11/13/18 Braxton Knowles MD [address] [place] [address] Referring General Surgery 01/09/24 Christie Sánchez NP [address] [facility] [place] [address] Home Care Provider Family Medicine 01/09/24 Tessa Spring MD [address] [place], [place] [id number] General Surgery 02/01/24 Amber Valverde LISW [address] [place] [address] Reel Worker Hematology/Oncology 02/19/24 Jimmie Poole MD [address] [place] [address] Hematology/Oncology 02/21/24 Kate Castillo RN [address] [facility] [place] [address] Specialty Senior Counsel Commercial Hematology/Oncology 02/21/24 Fuel Testing Technician Relationship Specialty Start Date End Date Christie Sánchez NP [address] [place] [address] PCP - General Family Medicine 04/16/24 Adrian Wallace DO Referring Neurology 11/13/18 Braxton Knowles MD [address] [place] [address] Referring General Surgery 01/09/24 Christie Sánchez NP [address] [place] [address] Home Care Provider Family Medicine 01/09/24 Tessa Spring MD [address] [place] [address] General Surgery 02/01/24 Amber Valverde LISW [address] [place] [address] Reel Worker Hematology/Oncology 02/19/24 Jimmie Poole MD [address] [place] [address] Hematology/Oncology 02/21/24 Kate Castillo RN [address] [place] [address] Specialty Senior Counsel Commercial Hematology/Oncology 02/21/24 Fuel Testing Technician Relationship Specialty Start Date End Date Christie Sánchez NP [address] [place] [address] PCP - General Family Medicine 04/16/24 Adrian Wallace DO Referring Neurology 11/13/18 Braxton Knowles MD [address] [place] [address] Referring General Surgery 01/09/24 Christie Sánchez NP [address] [place] [address] Home Care Provider Family Medicine 01/09/24 Tessa Spring MD [facility] [place] [address] General Surgery 02/01/24 Amber Valverde LISW [address] [place] [address] Reel Worker Hematology/Oncology 02/19/24 Jimmie Poole MD [address] [place] [address] Hematology/Oncology 02/21/24 Kate Castillo, REAL [address] [place] [address] Specialty Senior Counsel Commercial Hematology/Oncology 02/21/24 Fuel Testing Technician Relationship Specialty Start Date End Date Christie Sánchez NP [address] [place] [address] PCP - General Family Medicine 04/16/24 Adrian Wallace DO Referring Neurology 11/13/18 Braxton Knowles MD [address] [place], [place] [phone] Referring General Surgery 01/09/24 Christie Sánchez NP [address] [place] [address] Home Care Provider Family Medicine 01/09/24 Tessa Spring MD [address] [place], [place] [phone] General Surgery 02/01/24 Amber Valverde LISW [address] [place] [address] Reel Worker Hematology/Oncology 02/19/24 Jimmie Poole MD [address] [place] [address] Hematology/Oncology 02/21/24 Kate Castillo, REAL [address] [place] [address] Specialty Senior Counsel Commercial Hematology/Oncology 02/21/24 Fuel Testing Technician Relationship Specialty Start Date End Date Christie Sánchez NP [address] [facility] [place] [place] [address] PCP - General Family Medicine 04/16/24 Adrian Wallace DO Referring Neurology 11/13/18 Braxton Knowles MD [address] [place] [address] Referring General Surgery 01/09/24 Christie Sánchez NP [address] [place], [place] 885231 Home Care Provider Family Medicine 01/09/24 Tessa Spring MD [address] [place] [address] General Surgery 02/01/24 Amber Valverde LISW [address] [place] [address] Reel Worker Hematology/Oncology 02/19/24 Jimmie Poole MD [address] [place] [address] Hematology/Oncology 02/21/24 Kate Castillo, RN [address] [facility], [place] 872321 Specialty Senior Counsel Commercial Hematology/Oncology 02/21/24 Fuel Testing Technician Relationship Specialty Start Date End Date Christie Sánchez NP [address]39 [place] [address] PCP - General Family Medicine 04/16/24 Adrian Wallace DO Referring Neurology 11/13/18 Braxton Knowles MD [address] [place] [address] Referring General Surgery 01/09/24 Christie Sánchez NP [address] [place] [address] Home Care Provider Family Medicine 01/09/24 Tessa Spring MD [address] [place] [address] General Surgery 02/01/24 Amber Valverde LISW [address] [place] [address] Reel Worker Hematology/Oncology 02/19/24 Jimmie Poole MD [address] [place] [address] Hematology/Oncology 02/21/24 Kate Castillo, REAL [address] [place] [address] Specialty Senior Counsel Commercial Hematology/Oncology 02/21/24 Fuel Testing Technician Relationship Specialty Start Date End Date Christie Sánchez NP [address] [facility] [place] [address] PCP - General Family Medicine 04/16/24 Adrian Wallace DO Referring Neurology 11/13/18 Braxton Knowles MD [address] [phone] Referring General Surgery 01/09/24 Christie Sánchez NP [address] [facility] [place] [address] Home Care Provider Family Medicine 01/09/24 Tessa Spring MD [address] [id number] General Surgery 02/01/24 Amber Valverde LISW [address] [place] [address] Reel Worker Hematology/Oncology 02/19/24 Jimmie Poole MD [address] [place] [address] Hematology/Oncology 02/21/24 Kate Castillo RN [address] [place], [place] 961261 Specialty Senior Counsel Commercial Hematology/Oncology 02/21/24 Fuel Testing Technician Relationship Specialty Start Date End Date Mary Moss CNP PCP - General Family Medicine 05/28/18 04/15/24 Christie Sánchez NP [address] [place], [place] 749031 PCP - General Family Medicine 04/16/24 Adrian Wallace DO Referring Neurology 11/13/18 Braxton Knowles MD [address] [place] [address] Referring General Surgery 01/09/24 Christie Sánchez NP [address] [place], [place] 596741 Home Care Provider Family Medicine 01/09/24 Tessa Spring MD [address] [place] [address] General Surgery 02/01/24 Amber Valverde LISW [address] [place] [address] Reel Worker Hematology/Oncology 02/19/24 Jimmie Poole MD [address] [place], [place] [id number] Hematology/Oncology 02/21/24 Kate Castillo, REAL [address] [place], [place] [id number] Specialty Senior Counsel Commercial Hematology/Oncology 02/21/24 Fuel Testing Technician Relationship Specialty Start Date End Date Christie Sánchez NP [address] [place] [address] PCP - General Family Medicine 04/16/24 Adrian Wallace DO Referring Neurology 11/13/18 Braxton nKowles MD [address] 7631995 Referring General Surgery 01/09/24 Christie Sánchez NP [address] [place] [address] Home Care Provider Family Medicine 01/09/24 Tessa Spring MD [address] [id number] General Surgery 02/01/24 Amber Valverde LISW [address] [place] [address] Reel Worker Hematology/Oncology 02/19/24 Jimmie Poole MD [address] [place] [address] Hematology/Oncology 02/21/24 Kate Castillo, REAL [address] [place] [address] Specialty Senior Counsel Commercial Hematology/Oncology 02/21/24 Fuel Testing Technician Relationship Specialty Start Date End Date Christie Sánchez NP [address] [place] [address] PCP - General Family Medicine 04/16/24 Adrian Wallace DO Referring Neurology 11/13/18 Braxton Knowles MD [address] [place] [address] Referring General Surgery 01/09/24 Christie Sánchez NP [address] [place] [address] Home Care Provider Family Medicine 01/09/24 Tessa Spring MD [address] [place] [address] General Surgery 02/01/24 Amber Valverde LISW [address] [place] [address] Reel Worker Hematology/Oncology 02/19/24 Jimmie Poole MD [address] [place] [address] Hematology/Oncology 02/21/24 Kate Castillo RN [address] [place] [address] Specialty Senior Counsel Commercial Hematology/Oncology 02/21/24 Fuel Testing Technician Relationship Specialty Start Date End Date Christie Sánchez NP [address] [place] [address] PCP - General Family Medicine 04/16/24 Adrian Wallace DO Referring Neurology 11/13/18 Braxton Knowles MD [address] [place] [address] Referring General Surgery 01/09/24 Christie Sánchez NP [address] [place] [address] Home Care Provider Family Medicine 01/09/24 Tessa Spring MD [address] [place] [address] General Surgery 02/01/24 Amber Valverde LISW [address] [place] [address] Reel Worker Hematology/Oncology 02/19/24 Jimmie Poole MD [address] [place] [address] Hematology/Oncology 02/21/24 Kate Castillo, REAL [address] [place] [address] Specialty Senior Counsel Commercial Hematology/Oncology 02/21/24 Fuel Testing Technician Relationship Specialty Start Date End Date Christie Sánchez NP [address] [place] [address] PCP - General Family Medicine 04/16/24 Adrian Wallace DO Referring Neurology 11/13/18 Braxton Knowles MD [facility] [place] [place] [address] Referring General Surgery 01/09/24 Christie Sánchez NP [address] [place] [address] Home Care Provider Family Medicine 01/09/24 Tessa Spring MD [address] [place] [address] General Surgery 02/01/24 Amber Valverde LISW [address] [place] [address] Reel Worker Hematology/Oncology 02/19/24 Jimmie Poole MD [address] [place] [address] Hematology/Oncology 02/21/24 Kate Castillo, REAL [address] [place] [address] Specialty Senior Counsel Commercial Hematology/Oncology 02/21/24 Fuel Testing Technician Relationship Specialty Start Date End Date Christie Sánchez NP [address]39 [facility] [place] [address] PCP - General Family Medicine 04/16/24 Adrian Wallace DO Referring Neurology 11/13/18 Braxton Knowles MD [address] [place] [address] Referring General Surgery 01/09/24 Christie Sánchez NP [address]39 [place] [address] Home Care Provider Family Medicine 01/09/24 Tessa Spring MD [address] [place] [address] General Surgery 02/01/24 Amber Valverde LISW [address] [place] [address] Reel Worker Hematology/Oncology 02/19/24 Jimmie Poole MD [address] [place], [place] 2380[address] Hematology/Oncology 02/21/24 Kate Castillo, RN [address] [place], [place] [id number] Specialty Senior Counsel Commercial Hematology/Oncology 02/21/24 Team Status: Active Member Role Status Dates Aubrey Lopez VSC, FABRICATION OPERATOR-C Primary Care Provider Active Team Status: Inactive Member Role Status Dates Christie Sánchez VSC, FABRICATION OPERATOR-C Primary Care Provider Activ e Start: April 08, 2024 End: April 08, 2024 Ankit Marsh MD Attending Provider Active Star t: April 08, 2024 End: April 08, 2024 Anikt Marsh MD Emergency Provider Active Star t: April 08, 2024 End: April 08, 2024 Team Status: Inactive Member Role Status Dates Aubrey Lopez VSC, FABRICATION OPERATOR-C Primary Care Provider Active Start: July 11, 2024 End: July 11, 2024 Dr. Milagro Ying DO Referring Provider Active S tart: July 11, 2024 End: July 11, 2024 Dr. Milagro Yign DO Emergency Provider Active S tart: July 11, 2024 End: July 11, 2024 Fuel Testing Technician Relationship Specialty Start Date End Date Christie Sánchez NP [address] [place] [address] PCP - General Family Medicine 04/16/24 Adrian Wallace DO Referring Neurology 11/13/18 [place] [address] [place] [address] Referring General Surgery 01/09/24 Christie Sánchez NP [address] [place] [address] Home Care Provider Family Medicine 01/09/24 Tessa Spring MD [address] [place] [address] General Surgery 02/01/24 Amber Valverde LISW [address] [place] [address] Reel Worker Hematology/Oncology 02/19/24 Jimmie Poole MD [address] [facility] [place] [address] Hematology/Oncology 02/21/24 Kate Castillo, RN [address] [facility], [place] [id number] Specialty Senior Counsel Commercial Hematology/Oncology 02/21/24 Fuel Testing Technician Relationship Specialty Start Date End Date Christie Sánchez [place] [address] [place] [address] PCP - General Family Medicine 04/16/24 Adrian Wallace DO Referring Neurology 11/13/18 Braxton Knowles MD [address] [place] [address] Referring General Surgery 01/09/24 Christie Sánchez [place] [address] [place] [address] Home Care Provider Family Medicine 01/09/24 Tessa Spring MD 0 [place] [address] General Surgery 02/01/24 Amber Valverde LISW [address] [facility] [address] Reel Worker Hematology/Oncology 02/19/24 Jimmie Poole MD [address] [place] [address] Hematology/Oncology 02/21/24 Kate Castillo, REAL [address] [place] [address] Specialty Senior Counsel Commercial Hematology/Oncology 02/21/24 Fuel Testing Technician Relationship Specialty Start Date End Date Christie Sánchez NP [address] [place] [address] PCP - General Family Medicine 04/16/24 Adrian Wallace DO Referring Neurology 11/13/18 Braxton Knowles MD [address] 7631995 Referring General Surgery 01/09/24 Christie Sánchez NP [address]39 [facility] [place] [address] Home Care Provider Family Medicine 01/09/24 Tessa Spring MD [address] [id number] General Surgery 02/01/24 Amber Valverde LISW [address] [place] [address] Reel Worker Hematology/Oncology 02/19/24 Jimmie Poole MD [address] [place] [address] Hematology/Oncology 02/21/24 Kate Castillo RN [address] [place] [address] Specialty Senior Counsel Commercial Hematology/Oncology 02/21/24 Fuel Testing Technician Relationship Specialty Start Date End Date Christie Sánchez NP [address] [place] [address] PCP - General Family Medicine 04/16/24 Adrian Wallace DO Referring Neurology 11/13/18 Braxton Knowles MD [address] [place] [address] Referring General Surgery 01/09/24 Christie Sánchez NP [address] [place] [address] Home Care Provider Family Medicine 01/09/24 Tessa Spring MD [address] [place] [address] General Surgery 02/01/24 Amber Valverde LISW [address] [place] [address] Reel Worker Hematology/Oncology 02/19/24 Jimmie Poole MD [address] [place] [address] Hematology/Oncology 02/21/24 Kate Castillo, REAL [address] [place] [address] Specialty Senior Counsel Commercial Hematology/Oncology 02/21/24 Fuel Testing Technician Relationship Specialty Start Date End Date Christie Sánchez NP [address] [place] [address] PCP - General Family Medicine 04/16/24 Adrian Wallace DO Referring Neurology 11/13/18 [place] [address] [place] [address] Referring General Surgery 01/09/24 Christie Sánchez NP [address] [place] [address], [place] [address] Home Care Provider Family Medicine 01/09/24 Tessa Spring MD [address] [place] [address] General Surgery 02/01/24 Amber Valverde LISW [address] [place] [address] Reel Worker Hematology/Oncology 02/19/24 Jimmie Poole MD [address] [place] [address] Hematology/Oncology 02/21/24 Kate Castillo, REAL [address] [place] [address] Specialty Senior Counsel Commercial Hematology/Oncology 02/21/24 Fuel Testing Technician Relationship Specialty Start Date End Date Christie Sánchez NP [address] [place] [address] PCP - General Family Medicine 04/16/24 Adrian Wallace DO Referring Neurology 11/13/18 Braxton Knowles MD [address] [place] [address] Referring General Surgery 01/09/24 Christie Sánchez NP [address] [place] [address] Home Care Provider Family Medicine 01/09/24 Tessa Spring MD [address] [place] [address] General Surgery 02/01/24 Amber Valverde LISW [address] [place] [address] Reel Worker Hematology/Oncology 02/19/24 Jimmie Poole MD [address] [place] [address] Hematology/Oncology 02/21/24 Kate Castillo RN [address] [place] [address] Specialty Senior Counsel Commercial Hematology/Oncology 02/21/24 Fuel Testing Technician Relationship Specialty Start Date End Date Christie Sánchez NP [address] [place] [address] PCP - General Family Medicine 04/16/24 Adrian Wallace DO Referring Neurology 11/13/18 Braxton Knowles MD [address] [place] [address] Referring General Surgery 01/09/24 Christie Sánchez NP [address] [place] [address] Home Care Provider Family Medicine 01/09/24 Tessa Spring MD [address] [place] [address] General Surgery 02/01/24 Amber Valverde LISW [address] [place] [address] Reel Worker Hematology/Oncology 02/19/24 Jimmie Poole MD [address] [facility] [place] [address] Hematology/Oncology 02/21/24 Kate Castillo, REAL [address] [facility], [place] [address] Specialty Senior Counsel Commercial Hematology/Oncology 02/21/24 Fuel Testing Technician Relationship Specialty Start Date End Date Christie Sánchez NP [address] [id number] PCP - General Family Medicine 04/16/24 Adrian Wallace DO Referring Neurology 11/13/18 Braxton Knowles MD [address] [place] [address] Referring General Surgery 01/09/24 Christie Sánchez [place] [address] [place] [address] Home Care Provider Family Medicine 01/09/24 Tessa Spring MD [address] [place] [address] General Surgery 02/01/24 Amber Valverde LISW [address] [place] [address] Reel Worker Hematology/Oncology 02/19/24 Jimmie Poole MD [address] [place] [address] Hematology/Oncology 02/21/24 Kate Castillo, REAL [address] [place] [address] Specialty Senior Counsel Commercial Hematology/Oncology 02/21/24 Fuel Testing Technician Relationship Specialty Start Date End Date Christie Sánchez NP [address] [place] [address] PCP - General Family Medicine 04/16/24 Adrian Wallace DO Referring Neurology 11/13/18 Braxton Knowles MD [address] 7631995 Referring General Surgery 01/09/24 Christie Sánchez NP [address]39 [facility] [place] [address] Home Care Provider Family Medicine 01/09/24 Tessa Spring MD [address] [id number] General Surgery 02/01/24 Amber Valverde LISW [address] [place] [address] Reel Worker Hematology/Oncology 02/19/24 Jimmie Poole MD [address] [place] [address] Hematology/Oncology 02/21/24 Kate Castillo RN [address] [place] [address] Specialty Senior Counsel Commercial Hematology/Oncology 02/21/24 Fuel Testing Technician Relationship Specialty Start Date End Date Christie Sánchez NP [address] [place], [place] 222491 PCP - General Family Medicine 04/16/24 Adrian Wallace DO Referring Neurology 11/13/18 Braxton Knowles MD [address] [place] [address] Referring General Surgery 01/09/24 Christie Sánchez NP [address] [place], [place] 346291 Home Care Provider Family Medicine 01/09/24 Tessa Spring MD [address] [place], [place] [id number] General Surgery 02/01/24 Amber Valverde LISW [address] [place] [address] Reel Worker Hematology/Oncology 02/19/24 Jimmie Poole MD [address] [place] [address] Hematology/Oncology 02/21/24 Kate Castillo, REAL [address] [place], [place] [id number] Specialty Senior Counsel Commercial Hematology/Oncology 02/21/24 Fuel Testing Technician Relationship Specialty Start Date End Date Christie Sánchez NP [address] [place], [place] 164541 PCP - General Family Medicine 04/16/24 Adrian Wallace DO Referring Neurology 11/13/18 Braxton Knowles MD [address] [place] [address] Referring General Surgery 01/09/24 Christie Sán[place] [address] [place] [address] Home Care Provider Family Medicine 01/09/24 Tessa Spring MD [address] [place] [address] General Surgery 02/01/24 Amber Valverde LISW [address] [place] [address] Reel Worker Hematology/Oncology 02/19/24 Jimmie Poole MD [address] [place] [address] Hematology/Oncology 02/21/24 Kate Castillo, REAL [address] [place] [address] Specialty Senior Counsel Commercial Hematology/Oncology 02/21/24 Fuel Testing Technician Relationship Specialty Start Date End Date Christie Sánchez NP [address] [place] [address] PCP - General Family Medicine 04/16/24 Adrian Wallace DO Referring Neurology 11/13/18 Braxton Knowles MD [address] [place] [address] Referring General Surgery 01/09/24 Christie Sánchez NP [address] [place] [address] Home Care Provider Family Medicine 01/09/24 Tessa Spring MD [address] [place] [address] General Surgery 02/01/24 Amber Valverde LISW [address] [place] [address] Reel Worker Hematology/Oncology 02/19/24 Jimmie Poole MD [address] [place] [address] Hematology/Oncology 02/21/24 Kate Castillo RN [address] [place] [address] Specialty Senior Counsel Commercial Hematology/Oncology 02/21/24 Fuel Testing Technician Relationship Specialty Start Date End Date Christie Sánchez NP [address] [place] [address] PCP - General Family Medicine 04/16/24 Adrian Wallace DO Referring Neurology 11/13/18 Braxton Knowles MD [address] [place] [address] Referring General Surgery 01/09/24 Christie Sánchez NP [address] [place] [address] Home Care Provider Family Medicine 01/09/24 Tessa Spring MD [address] [place] [address] General Surgery 02/01/24 Amber Valverde LISW [address] [place] [address] Reel Worker Hematology/Oncology 02/19/24 Jimmie Poole MD [address] [facility] [place] [address] Hematology/Oncology 02/21/24 Kate Castillo, RN [address] [place] [address] Specialty Senior Counsel Commercial Hematology/Oncology 02/21/24 Fuel Testing Technician Relationship Specialty Start Date End Date Christie Sánchez NP [address] [place] [address] PCP - General Family Medicine 04/16/24 Adrian Wallace DO Referring Neurology 11/13/18 Braxton Knowles MD [address] [place] [address] Referring General Surgery 01/09/24 Christie Sánchez [place] [address] [place] [address] Home Care Provider Family Medicine 01/09/24 Tessa Spring MD [address] [place] [address] General Surgery 02/01/24 Amber Valverde LISW [address] [place] [address] Reel Worker Hematology/Oncology 02/19/24 Jimmie Poole MD [address] [place] [address] Hematology/Oncology 02/21/24 Kate Castillo, REAL [address] [place] [address] Specialty Senior Counsel Commercial Hematology/Oncology 02/21/24 Fuel Testing Technician Relationship Specialty Start Date End Date Christie Sánchez NP [address] [place] [address] PCP - General Family Medicine 04/16/24 Braxton Knowles MD [address] [place], [place] [id number] Referring General Surgery 01/09/24 Tessa Spring MD [address] [place] [address] General Surgery 02/01/24 Amber Valverde LISW [address] [place] [address] Reel Worker Hematology/Oncology 02/19/24 Jimmie Poole MD [address] [place] [place] [address] Hematology/Oncology 02/21/24 Kate Castillo RN [address] [place] [address] Specialty Senior Counsel Commercial Hematology/Oncology 02/21/24 Tessa Spring MD [address] [place] [address] Referring General Surgery 09/04/24 Jimmie Poole MD [address] [place] [address] Home Care Provider Hematology/Oncology 09/04/24 Shelby Brown, PT [address] [place] [address] Senior Net Developer Post Acute Care 09/04/24 Fuel Testing Technician Relationship Specialty Start Date End Date Christie Sánchez NP [address] [place] [address] PCP - General Family Medicine 04/16/24 Braxton Knowles MD [address] [place], [place] [id number] Referring General Surgery 01/09/24 Tessa Spring MD [address] [place], [place] [id number] General Surgery 02/01/24 Amber Valverde LISW [address] [place] [address] Reel Worker Hematology/Oncology 02/19/24 Jimmie Poole MD [address] [place] [address] Hematology/Oncology 02/21/24 Kate Castillo, REAL [address] [place] [address] Specialty Senior Counsel Commercial Hematology/Oncology 02/21/24 Tessa Spring MD [address] [place], [place] 1457495 Referring General Surgery 09/04/24 Jimmie Poole MD [address] [place] [address] Home Care Provider Hematology/Oncology 09/04/24 Shelby Brown, PT [address] [place] [address] Senior Net Developer Post Acute Care 09/04/24 Team Status: Inactive Member Role Status Dates Aubrey Beam VSC, FABRICATION OPERATOR-C Primary Care Provider Active Start: July 11, [...] Member Role Status Dates Aubrey Lopez VSC, FABRICATION OPERATOR-C Primary Care Provider Active Start: September 04, [...] Member Role Status Dates Aubrey Lopez VSC, FABRICATION OPERATOR-C Primary Care Provider Active Start: September 13, 2024 Dr. Qamar Smith MD Attending Provider Active Start: September 13, 2024 Dr. Qamar Smith MD Referring Provider Active Start: September 13, 2024 Fuel Testing Technician Relationship Specialty Start Date End Date Christie Sánchez NP [address] [place] [address] PCP - General Family Medicine 04/16/24 Braxton Knowles MD [address] [place] [address] Referring General Surgery 01/09/24 Tessa Spring MD [address] [place] [address] General Surgery 02/01/24 Amber Valverde LISW [address] [place] [address] Reel Worker Hematology/Oncology 02/19/24 Jimmie Poole MD [address] [place] [place] [address] Hematology/Oncology 02/21/24 Kate Castillo, REAL [address] [place] [address] Specialty Senior Counsel Commercial Hematology/Oncology 02/21/24 Tessa Spring MD [address] [place] [address] Referring General Surgery 09/04/24 Jimmie Poole MD [address] [place] [address] Home Care Provider Hematology/Oncology 09/04/24 Fuel Testing Technician Relationship Specialty Start Date End Date Christie Sánchez NP [address] [place] [address] PCP - General Family Medicine 04/16/24 Braxton Knowles MD [address] [place], [place] [phone] Referring General Surgery 01/09/24 Tessa Spring MD [address] [place], [place] [id number] General Surgery 02/01/24 Amber Valverde LISW [address] [place] [address] Reel Worker Hematology/Oncology 02/19/24 Jimmie Poole MD [address] [place] [address] Hematology/Oncology 02/21/24 Kate Castillo RN [address] [facility] [place] [id number] Specialty Senior Counsel Commercial Hematology/Oncology 02/21/24 Tessa Spring MD [address] [place] [address] Referring General Surgery 09/04/24 Jimmie Poole MD [address] [place] [address] Home Care Provider Hematology/Oncology 09/04/24 Fuel Testing Technician Relationship Specialty Start Date End Date Christie Sánchez NP [address] [place] [address] PCP - General Family Medicine 04/16/24 Braxton Knowles MD [address] [place] [address] Referring General Surgery 01/09/24 Tessa Spring MD [address] [place] [address] General Surgery 02/01/24 Amber Valverde LISW [address] [place] [address] Reel Worker Hematology/Oncology 02/19/24 Jimmie Poole MD [address] [facility] [place] [address] Hematology/Oncology 02/21/24 Kate Castillo, REAL [address] [facility] [place] [address] Specialty Senior Counsel Commercial Hematology/Oncology 02/21/24 Tessa Spring MD [address] [place] [address] Referring General Surgery 09/04/24 Jimmie Poole MD [address] [place] [address] Home Care Provider Hematology/Oncology 09/04/24 Fuel Testing Technician Relationship Specialty Start Date End Date Christie Sánchez NP [address] [place] [address] PCP - General Family Medicine 04/16/24 Braxton Knowles MD [address] [place] [address] Referring General Surgery 01/09/24 Tessa Spring MD [address] [place] [address] General Surgery 02/01/24 Amber Valverde LISW [address] [place] [address] Reel Worker Hematology/Oncology 02/19/24 Jimmie Poole MD [address] [place] [address] Hematology/Oncology 02/21/24 Kate Castillo, REAL [address] [place] [address] Specialty Senior Counsel Commercial Hematology/Oncology 02/21/24 Tessa Spring MD [address] [place] [address] Referring General Surgery 09/04/24 Jimmie Poole MD [address] [place], [place] [address]03256 Home Care Provider Hematology/Oncology 09/04/24 Team Status: Active Member Role/Relationship Status Dates Zebulun Beam VSC, FABRICATION OPERATOR-C Primary Care Provider Active Team Status: Inactive Member Role/Relationship Status Dates Zebulun Beam VSC, FABRICATION OPERATOR-C Primary Care Provider Active Start: July 11, [...] Member Role/Relationship Status Dates Zebulun Beam VSC, FABRICATION OPERATOR-C Primary Care Provider Active Start: September 04, [...] Member Role/Relationship Status Dates Zebulun Beam VSC, FABRICATION OPERATOR-C Primary Care Provider Active Start: September 13, 2024 End: September 13, 2024 Dr. Qamar Smith MD Attending Provider Active Start: September 13, 2024 End: September 13, 2024 Dr. Qamar Smith MD Referring Provider Active Start: September 13, 2024 End: September 13, 2024 Fuel Testing Technician Relationship Specialty Start Date End Date Christie Sánchez NP [address] [place] [address] PCP - General Family Medicine 04/16/24 Braxton Knowles MD [address] [place] [address] Referring General Surgery 01/09/24 Tessa Spring MD [address] [place] [address] General Surgery 02/01/24 Amber Valverde LISW [address] [place] [address] Reel Worker Hematology/Oncology 02/19/24 Jimmie Poole MD [address] [place] [address] Hematology/Oncology 02/21/24 Kate Castillo, REAL [address] [place] [address] Specialty Senior Counsel Commercial Hematology/Oncology 02/21/24 Tessa Spring MD [address] [place] [phone] Referring General Surgery 09/04/24 Jimmie Poole MD [address] [place], [place] [id number] Home Care Provider Hematology/Oncology 09/04/24 Fuel Testing Technician Relationship Specialty Start Date End Date Christie Sánchez NP [address] [place] [address] PCP - General Family Medicine 04/16/24 Braxton Knowles MD [address] [place] [address] Referring General Surgery 01/09/24 Tessa Spring MD [address] [place] [address] General Surgery 02/01/24 Amber Valverde LISW [address] [place] [address] Reel Worker Hematology/Oncology 02/19/24 Jimmie Poole MD [address] [facility] [place] [address] Hematology/Oncology 02/21/24 Kate Castillo, REAL [address] [place] [address] Specialty Senior Counsel Commercial Hematology/Oncology 02/21/24 Tessa Spring MD [address] [place] [address] Referring General Surgery 09/04/24 Jimmie Poole MD [address] [place] [address] Home Care Provider Hematology/Oncology 09/04/24 Fuel Testing Technician Relationship Specialty Start Date End Date Christie Sánchez NP [address] [place] [address] PCP - General Family Medicine 04/16/24 Braxton Knowles MD [address] [place] [address] Referring General Surgery 01/09/24 Tessa Sprnig MD [address] [place] [address] General Surgery 02/01/24 Amber Valverde LISW [address] [place] [address] Reel Worker Hematology/Oncology 02/19/24 Jimmie Poole MD [address] [address] Hematology/Oncology 02/21/24 Kate Castillo, REAL [address] [place] [address] Specialty Senior Counsel Commercial Hematology/Oncology 02/21/24 Tessa Spring MD [address] [place] [address] Referring General Surgery 09/04/24 Jimmie Poole MD [address] [place] [address] Home Care Provider Hematology/Oncology 09/04/24 Fuel Testing Technician Relationship Specialty Start Date End Date Christie Sánchez NP [address] [place] [address] PCP - General Family Medicine 04/16/24 Braxton Knowles MD [address] [place] [address] Referring General Surgery 01/09/24 Tessa Spring MD [address] [place] [address] General Surgery 02/01/24 Amber Valverde LISW [address] [place] [address] Reel Worker Hematology/Oncology 02/19/24 Jimmie Poole MD [address] [place] [address] Hematology/Oncology 02/21/24 Kate Castillo, REAL [address] [place] [address] Specialty Senior Counsel Commercial Hematology/Oncology 02/21/24 Tessa Spring MD [address] [place] [address] Referring General Surgery 09/04/24 Jimmie Poole MD [address] [place], [place] [id number] Home Care Provider Hematology/Oncology 09/04/24 Fuel Testing Technician Relationship Specialty Start Date End Date Christie Sánchez NP [address] [place] [address] PCP - General Family Medicine 04/16/24 Braxton Knowles MD [address] [place], [place] 3635495 Referring General Surgery 01/09/24 Tessa Spring MD [address] [place], [place] [id number] General Surgery 02/01/24 Amber Valverde LISW [address] [place] [address] Reel Worker Hematology/Oncology 02/19/24 Jimmie Poole MD [address] [place] [address] Hematology/Oncology 02/21/24 Kate Castillo, REAL [address] [place] [address] Specialty Senior Counsel Commercial Hematology/Oncology 02/21/24 Tessa Spring MD [address] [place], [place] [phone] Referring General Surgery 09/04/24 Jimmie Poole MD [address] [place] [address] Home Care Provider Hematology/Oncology 09/04/24 Fuel Testing Technician Relationship Specialty Start Date End Date Christie Sánchez NP [address] [place] [address] PCP - General Family Medicine 04/16/24 Braxton Knowles MD [address] [place] [address]1995 Referring General Surgery 01/09/24 Tessa Spring MD [address] [place] [id number] General Surgery 02/01/24 Amber Valverde LISW [address] [place] [address] Reel Worker Hematology/Oncology 02/19/24 Jimmie Poole MD [address] [place] [address] Hematology/Oncology 02/21/24 Kate Castillo, REAL [address] [place] [address] Specialty Senior Counsel Commercial Hematology/Oncology 02/21/24 Tessa Spring MD [address] [place] [address] Referring General Surgery 09/04/24 Jimmie Poole MD [address] [place] [address] Home Care Provider Hematology/Oncology 09/04/24 Fuel Testing Technician Relationship Specialty Start Date End Date Christie Sánchez NP [address] [place] [address] PCP - General Family Medicine 04/16/24 Braxton Knowles MD [address] [place] [address] Referring General Surgery 01/09/24 Tessa Spring MD [address] [place], [place] [id number] General Surgery 02/01/24 Amber Valverde LISW [address] [place] [address] Reel Worker Hematology/Oncology 02/19/24 Jimmie Poole MD [address] [place] [address] Hematology/Oncology 02/21/24 Kate Castillo, REAL [address] [place] [address] Specialty Senior Counsel Commercial Hematology/Oncology 02/21/24 Tessa Spring MD [address] [place] [phone] Referring General Surgery 09/04/24 Jimmie Poole MD [address] [place] [address] Home Care Provider Hematology/Oncology 09/04/24 Fuel Testing Technician Relationship Specialty Start Date End Date Christie Sánchez NP [address] [place] [address] PCP - General Family Medicine 04/16/24 Braxton Knowles MD [address] [place], [place] 4419695 Referring General Surgery 01/09/24 Tessa Spring MD [address] [place] [address] General Surgery 02/01/24 Amber Valverde LISW [address] [place] [address] Reel Worker Hematology/Oncology 02/19/24 Jimmie Poole MD [address] [place] [address] Hematology/Oncology 02/21/24 Kate Castillo, REAL [address] [place] [address] Specialty Senior Counsel Commercial Hematology/Oncology 02/21/24 Tessa Spring MD [address] [place], [place] 8903595 Referring General Surgery 09/04/24 Jimmie Poole MD [address] [place], [place] 18866256 Home Care Provider Hematology/Oncology 09/04/24 Fuel Testing Technician Relationship Specialty Start Date End Date Christie Sánchez NP [address] [place] [address] PCP - General Family Medicine 04/16/24 Braxton Knowles MD [address] [place] [address] Referring General Surgery 01/09/24 Tessa Spring MD [address] [place] [address] General Surgery 02/01/24 Amber Valverde LISW [address] [place] [address] Reel Worker Hematology/Oncology 02/19/24 Jimmie Poole MD [address] [place] [address] Hematology/Oncology 02/21/24 Kate Castillo RN [address] [place] [address] Specialty Senior Counsel Commercial Hematology/Oncology 02/21/24 Tessa Spring MD [address] [place] [address] Referring General Surgery 09/04/24 Jimmie Poole MD [address] [place] [address] Home Care Provider Hematology/Oncology 09/04/24 Fuel Testing Technician Relationship Specialty Start Date End Date Christie Sánchez NP [address] [place] [address] PCP - General Family Medicine 04/16/24 Braxton Knowles MD [address] [place] [address]1995 Referring General Surgery 01/09/24 Tessa Spring MD [address] [place] [address] General Surgery 02/01/24 Amber Valverde LISW [address] [place] [address] Reel Worker Hematology/Oncology 02/19/24 Jimmie Poole MD [address] [facility] [place] [address] Hematology/Oncology 02/21/24 Kate Castillo RN [address] [place] [address] Specialty Senior Counsel Commercial Hematology/Oncology 02/21/24 Tessa Spring MD [address] [place] [phone] Referring General Surgery 09/04/24 Jimmie Poole MD [address] [place] [address] Home Care Provider Hematology/Oncology 09/04/24 Team Status: Active Member Role/Relationship Status Dates Zebulun Beam VSC, FABRICATION OPERATOR-C Primary Care Provider Active Start: October 18, 2024 Zebulun Beam VSC, FABRICATION OPERATOR-C Attending Provider Active Start: October 18, 2024 Zebulun Beam VSC, FABRICATION OPERATOR-C Referring Provider Active Start: October 18, 2024 Team Status: Inactive Member Role/Relationship Status Dates Zebulun Beam VSC, FABRICATION OPERATOR-C Primary Care Provider Active Start: October 23, 2024 End: October 23, 2024 Ankit Marsh MD Emergency Provider Active Star t: October 23, 2024 End: October 23, 2024 Fuel Testing Technician Relationship Specialty Start Date End Date Christie Sánchez NP [address] [place] [id number] PCP - General Family Medicine 04/16/24 Braxton Knowles MD [address] [place] [address]1995 Referring General Surgery 01/09/24 Tessa Spring MD [address] [place] [id number] General Surgery 02/01/24 Amber Valverde LISW [address] [place] [address] Reel Worker Hematology/Oncology 02/19/24 Jimmie Poole MD [address] [facility] [address] Hematology/Oncology 02/21/24 Kate Castillo, REAL [address] [place] [address] Specialty Senior Counsel Commercial Hematology/Oncology 02/21/24 Tessa Spring MD [address] [place] [address] Referring General Surgery 09/04/24 Jimmie Poloe MD [address] [place] [address] Home Care Provider Hematology/Oncology 09/04/24 Fuel Testing Technician Relationship Specialty Start Date End Date Christie Sánchez NP [address] [place] [address] PCP - General Family Medicine 04/16/24 Braxton Knowles MD [address] [place] [address] Referring General Surgery 01/09/24 Tessa Spring MD [address] [place] [address] General Surgery 02/01/24 Amber Valverde LISW [address] [place] [address] Reel Worker Hematology/Oncology 02/19/24 Jimmie Poole MD [address] [place] [address] Hematology/Oncology 02/21/24 Kate Castillo, REAL [address] [place] [address] Specialty Senior Counsel Commercial Hematology/Oncology 02/21/24 Tessa Spring MD [address] [place] [address] Referring General Surgery 09/04/24 Jimmie Poole MD [address] [place], [place] [address]5801256 Home Care Provider Hematology/Oncology 09/04/24 Fuel Testing Technician Relationship Specialty Start Date End Date Christie Sánchez NP [address] [place] [address] PCP - General Family Medicine 04/16/24 Braxton Knowles MD [address] [place], [place] [phone] Referring General Surgery 01/09/24 Tessa Spring MD [address] [place], [place] [id number] General Surgery 02/01/24 Amber Valverde LISW [address] [place] [address] Reel Worker Hematology/Oncology 02/19/24 Jimmie Poole MD [address] [place] [address] Hematology/Oncology 02/21/24 Kate Castillo, REAL [address] [place] [address] Specialty Senior Counsel Commercial Hematology/Oncology 02/21/24 Tessa Spring MD [address] [place], [place] 0558295 Referring General Surgery 09/04/24 Jimmie Poole MD [address] [place] [address] Home Care Provider Hematology/Oncology 09/04/24 Fuel Testing Technician Relationship Specialty Start Date End Date Christie Sánchez NP [address] [place] [address] PCP - General Family Medicine 04/16/24 Braxton Knowles MD [address] [place] [address] Referring General Surgery 01/09/24 Tessa Spring MD [address] [place] [id number] General Surgery 02/01/24 Amber Valverde LISW [address] [place] [address] Reel Worker Hematology/Oncology 02/19/24 Jimmie Poole MD [address] [place] [address] Hematology/Oncology 02/21/24 Kate Castillo, REAL [address] [place] [address] Specialty Senior Counsel Commercial Hematology/Oncology 02/21/24 Tessa Spring MD [address] [place] [address] Referring General Surgery 09/04/24 Jimmie Poole MD [address] [place] [address] Home Care Provider Hematology/Oncology 09/04/24 Fuel Testing Technician Relationship Specialty Start Date End Date Mary Moss CNP PCP - General Family Medicine 05/28/18 04/15/24 Christie Sánchez NP [address] [place] [address] PCP - General Family Medicine 04/16/24 Adrian Wallacehever Referring Neurology 11/13/18 09/03/24 Braxton Knowles MD [address] [place], [place] [phone] Referring General Surgery 01/09/24 Christie Sánchez NP [address] [place] [address] Home Care Provider Family Medicine 01/09/24 09/03/24 Joe Williamson, REAL [address] [place], [place] [id number] Senior Net Developer Post Acute Care 01/09/24 02/04/24 Tessa Spring MD [address] [place] [address] General Surgery 02/01/24 Amber Valverde LISW [address] [place] [address] Reel Worker Hematology/Oncology 02/19/24 Jimmie Poole MD [address] [place] [address] Hematology/Oncology 02/21/24 Kate Castillo RN [address] [place] [address] Specialty Senior Counsel Commercial Hematology/Oncology 02/21/24 Tessa Spring MD [address] [place] [address] Referring General Surgery 09/04/24 Jimmie Poole MD [address] [place] [address] Home Care Provider Hematology/Oncology 09/04/24 Shelby Brown, PT [address] [place] [address] Senior Net Developer Post Acute Care 09/04/24 09/04/24 Team Status: Inactive Member Role/Relationship Status Dates Freddieluchico Beam VSC, FABRICATION OPERATOR-C Primary Care Provider Active Start: October 23, 2024 End: October 23, 2024 Ankit Marsh MD Attending Provider Active Star t: October 23, 2024 End: October 23, 2024 Ankit Marsh MD Emergency Provider Active Star t: October 23, 2024 End: October 23, 2024 Team Status: Active Member Role/Relationship Status Dates Zebuluchico Beam VSC, FABRICATION OPERATOR-C Primary Care Provider Active Start: November 07, 2024 Dr. Lluvia Vann MD Emergency Provider Active S tart: November 07, 2024 Dr. Annette Mendez MD Admit Provider Active Star t: November 07, 2024 Dr. Annette Mendez MD Attending Provider Active Start: November 07, 2024 Fuel Testing Technician Relationship Specialty Start Date End Date Christie Sánchez NP [address] [place] [id number] PCP - General Family Medicine 04/16/24 Braxton Knowles MD [address] [place] [address] Referring General Surgery 01/09/24 Tessa Spring MD [facility] [place] [address] General Surgery 02/01/24 Amber Valverde LISW [address] [place] [address] Reel Worker Hematology/Oncology 02/19/24 Jimmie Poole MD [address] [place] [address] Hematology/Oncology 02/21/24 Kate Castillo, REAL [address] [place] [address] Specialty Senior Counsel Commercial Hematology/Oncology 02/21/24 Tessa Spring MD [address] [place] [address] Referring General Surgery 09/04/24 Jimmie Poole MD [address] [place] [address] Home Care Provider Hematology/Oncology 09/04/24 Team Status: Inactive Member Role/Relationship Status Dates Aubrey Lopez VSC, FABRICATION OPERATOR-C Primary Care Provider Active Start: November 07, [...] November 07, 2024 End: November 08, 2024 Fuel Testing Technician Relationship Specialty Start Date End Date Christie Sánchez NP [address] [place] [address] PCP - General Family Medicine 04/16/24 Braxton Knowles MD [address] [place] [address] Referring General Surgery 01/09/24 Tessa Spring MD [address] [place] [address] General Surgery 02/01/24 Amber Valverde LISW [address] [place] [address] Reel Worker Hematology/Oncology 02/19/24 Jimmie Poole MD [address] [facility] [place] [address] Hematology/Oncology 02/21/24 Kate Castillo, RN [address] [place] [address] Specialty Senior Counsel Commercial Hematology/Oncology 02/21/24 Tessa Spring MD [address] [place], [place] [phone] Referring General Surgery 09/04/24 Jimmie Poole MD [address] [place], [place] [address]256 Home Care Provider Hematology/Oncology 09/04/24 Fuel Testing Technician Relationship Specialty Start Date End Date Christie Sánchez NP [address] [place] [address] PCP - General Family Medicine 04/16/24 Braxton Knowles MD [address] [place] [address] Referring General Surgery 01/09/24 Tessa Spring MD [address] [place] [address] General Surgery 02/01/24 Amber Valverde LISW [address] [place] [address] Reel Worker Hematology/Oncology 02/19/24 Jimmie Poole MD [address] [place] [address] Hematology/Oncology 02/21/24 Kate Castillo, REAL [address] [place] [address] Specialty Senior Counsel Commercial Hematology/Oncology 02/21/24 Tessa Spring MD [address] [place] [address] Referring General Surgery 09/04/24 Jimmie Poole MD [address] [place] [address] Home Care Provider Hematology/Oncology 09/04/24 Fuel Testing Technician Relationship Specialty Start Date End Date Christie Sánchez NP [address] [place] [address] PCP - General Family Medicine 04/16/24 Braxton Knowles MD [address] [place] [address] Referring General Surgery 01/09/24 Tessa Spring MD [address] [place] [address] General Surgery 02/01/24 Amber Valverde LISW [address] [place] [address] Reel Worker Hematology/Oncology 02/19/24 Jimmie Poole MD [address] [facility] [address] Hematology/Oncology 02/21/24 Kate Castillo, REAL [address] [facility] [place] [address] Specialty Senior Counsel Commercial Hematology/Oncology 02/21/24 Tessa Spring MD [address] [place] [address] Referring General Surgery 09/04/24 Jimmie Poole MD [address], [place] [id number] Home Care Provider Hematology/Oncology 09/04/24 Fuel Testing Technician Relationship Specialty Start Date End Date Christie Sánchez NP [address] [place] [address] PCP - General Family Medicine 04/16/24 Braxton Knowles MD [address] [place], [place] [address] Referring General Surgery 01/09/24 Tessa Spring MD [address] [place] [address] General Surgery 02/01/24 Amber Valverde LISW [address] [place] [address] Reel Worker Hematology/Oncology 02/19/24 Jimmie Poole MD [address] [place] [address] Hematology/Oncology 02/21/24 Kate Castillo, REAL [address] [place] [address] Specialty Senior Counsel Commercial Hematology/Oncology 02/21/24 Tessa Spring MD [address] [place] [address] Referring General Surgery 09/04/24 Jimmie Poole MD [address] [place] [address] Home Care Provider Hematology/Oncology 09/04/24 Team Status: Inactive Member Role/Relationship Status Dates Zebulun Beam VSC, FABRICATION OPERATOR-C Primary Care Provider Active Start: September 04, [...] Member Role/Relationship Status Dates Zebulun Beam VSC, FABRICATION OPERATOR-C Primary Care Provider Active Start: September 13, 2024 End: September 13, 2024 Dr. Qamar Smith MD Attending Provider Active Start: September 13, 2024 End: September 13, 2024 Dr. Qamar Smith MD Referring Provider Active Start: September 13, 2024 End: September 13, 2024 Team Status: Active Member Role/Relationship Status Dates Zebulun Beam VSC, FABRICATION OPERATOR-C Primary Care Provider Active Start: October 18, 2024 Zebulun Beam VSC, FABRICATION OPERATOR-C Attending Provider Active Start: October 18, 2024 Zebulun Beam VSC, FABRICATION OPERATOR-C Referring Provider Active Start: October 18, 2024 Team Status: Inactive Member Role/Relationship Status Dates Zebulun Beam VSC, FABRICATION OPERATOR-C Primary Care Provider Active Start: October 23, 2024 End: October 23, 2024 Ankit Marsh MD Attending Provider Active Star t: October 23, 2024 End: October 23, 2024 Ankit Marsh MD Emergency Provider Active Star t: October 23, 2024 End: October 23, 2024 Team Status: Inactive Member Role/Relationship Status Dates Zebulun Beam VSC, FABRICATION OPERATOR-C Primary Care Provider Active Start: November 07, 2024 End: November 08, 2024 Dr. Lluiva Vann MD Emergency Provider Active S tart: [...] Member Role/Relationship Status Dates Zebulun Beam VSC, FABRICATION OPERATOR-C Primary Care Provider Active Start: November 08, [...] Team Status: Inactive Member Role/Relationship Status Dates Zebuluchico Beam VSC, FABRICATION OPERATOR-C Primary Care Provider Active Start: November 20, 2024 End: November 21, 2024 Dr. Kavin Adams DO Emergency Provider Active Start : November 20, 2024 End: November 21, 2024 Dr. Rachana Nichols MD Other Provider Active Star t: November 20, 2024 End: November 21, 2024 Fuel Testing Technician Relationship Specialty Start Date End Date Christie Sánchez NP [address] [place] [address] PCP - General Family Medicine 04/16/24 Braxton Knowles MD [address] [place] [address] Referring General Surgery 01/09/24 Tessa Spring MD [address] [place] [address] General Surgery 02/01/24 Amber Valverde LISW [address] [place] [address] Reel Worker Hematology/Oncology 02/19/24 Jimmie Poole MD [address] [facility] [place] [id number] Hematology/Oncology 02/21/24 Kate Castillo, RN [address] [place], [place] [address] Specialty Senior Counsel Commercial Hematology/Oncology 02/21/24 Tessa Spring MD [address] [place], [place] [phone] Referring General Surgery 09/04/24 Jimmie Poole MD [address] [place] [address] Home Care Provider Hematology/Oncology 09/04/24 Team Status: Inactive Member Role/Relationship Status Dates Zebulun Beam VSC, FABRICATION OPERATOR-C Primary Care Provider Active Start: October 18, 2024 End: October 18, 2024 Zebulun Beam VSC, FABRICATION OPERATOR-C Attending Provider Active Start: October 18, 2024 End: October 18, 2024 Zebulun Beam VSC, FABRICATION OPERATOR-C Referring Provider Active Start: October 18, 2024 End: October 18, 2024 Team Status: Active Member Role/Relationship Status Dates Zebulun Beam VSC, FABRICATION OPERATOR-C Primary Care Provider Active Start: November 20, 2024 Dr. Kavin Adams DO Emergency Provider Active Start : November 20, 2024 Dr. Rahcana Nichols MD Attending Provider Active Start: November 20, 2024 Dr. Rachana Nichols MD Other Provider Active Star t: November 20, 2024 Team Status: Inactive Member Role/Relationship Status Dates Zebulun Beam VSC, FABRICATION OPERATOR-C Primary Care Provider Active Start: November 25, 2024 End: November 25, 2024 Dr. Demarcus Gauthier MD Emergency Provider Active S tart: November 25, 2024 End: November 25, 2024 Fuel Testing Technician Relationship Specialty Start Date End Date Christie Sánchez NP [address] [place] [address] PCP - General Family Medicine 04/16/24 Braxton Knowles MD [address] [place] [phone] Referring General Surgery 01/09/24 Tessa Spring MD [address] [place] [id number] General Surgery 02/01/24 Amber Valverde LISW [address] [place] [address] Reel Worker Hematology/Oncology 02/19/24 Jimmie Poole MD [address] [place], [place] [address] Hematology/Oncology 02/21/24 Kate Castillo RN [address] [place] [address] Specialty Senior Counsel Commercial Hematology/Oncology 02/21/24 Tessa Spring MD [address] [place] [id number] Referring General Surgery 09/04/24 Jimmie Poole MD [address] [place] [address] Home Care Provider Hematology/Oncology 09/04/24 Fuel Testing Technician Relationship Specialty Start Date End Date Christie Sánchez NP [address] [place] [address] PCP - General Family Medicine 04/16/24 Braxton Knowles MD [address] [place] [address] Referring General Surgery 01/09/24 Tessa Spring MD [address] [place] [id number] General Surgery 02/01/24 Amber Valverde LISW [address] [place] [address] Reel Worker Hematology/Oncology 02/19/24 Jimmie Poole MD [address] [place] [address] Hematology/Oncology 02/21/24 Kate Castillo, RN [address] [facility] [address] [place] [address] Specialty Senior Counsel Commercial Hematology/Oncology 02/21/24 Tessa Spring MD [address] [place] [address] Referring General Surgery 09/04/24 Jimmie Poole MD [address] [place] [address] Home Care Provider Hematology/Oncology 09/04/24 Fuel Testing Technician Relationship Specialty Start Date End Date Christie Sánchez NP [address] [place] [address] PCP - General Family Medicine 04/16/24 Braxton Knowles MD [address] [place] [phone] Referring General Surgery 01/09/24 Tessa Spring MD [address] [place] [address] General Surgery 02/01/24 Amber Valverde LISW [address] [place] [address] Reel Worker Hematology/Oncology 02/19/24 Jimmie Poole MD [address] [place] [address] Hematology/Oncology 02/21/24 Kate Castillo, REAL [address] [place] [address] Specialty Senior Counsel Commercial Hematology/Oncology 02/21/24 Tessa Spring MD [address] [place] [address] Referring General Surgery 09/04/24 Jimmie Poole MD [address], [place] [id number] Home Care Provider Hematology/Oncology 09/04/24 Fuel Testing Technician Relationship Specialty Start Date End Date Christie Sánchez NP [address] [place] [address] PCP - General Family Medicine 04/16/24 Braxton Knowles MD [address] [place] [address] Referring General Surgery 01/09/24 Tessa Spring MD [address] [place] [address] General Surgery 02/01/24 Amber Valverde LISW [address] [place] [address] Reel Worker Hematology/Oncology 02/19/24 Jimmie Poole MD [address] [place] [address] Hematology/Oncology 02/21/24 Kate Castillo RN [address] [facility] [address] Specialty Senior Counsel Commercial Hematology/Oncology 02/21/24 Tessa Spring MD [address] [place], [place] [phone] Referring General Surgery 09/04/24 Jimmie Poole MD [address] [place] [address] Home Care Provider Hematology/Oncology 09/04/24 Fuel Testing Technician Relationship Specialty Start Date End Date Christie Sánchez NP [address] [place] [address] PCP - General Family Medicine 04/16/24 Braxton Knowles MD [address] [place], [place] [phone] Referring General Surgery 01/09/24 Tessa Spring MD [address] [place] [address] General Surgery 02/01/24 Amber Valverde LISW [address] [place] [address] Reel Worker Hematology/Oncology 02/19/24 Jimmie Poole MD [address] [facility] [place] [address] Hematology/Oncology 02/21/24 Kate Castillo, REAL [address] [facility] [place] [address] Specialty Senior Counsel Commercial Hematology/Oncology 02/21/24 Tessa Spring MD [address] [place], [place] [phone] Referring General Surgery 09/04/24 Jimmie Poole MD [address] [place] [address] Home Care Provider Hematology/Oncology 09/04/24 Team Status: Active Member Role/Relationship Status Dates Zebulun Beam VSC, FABRICATION OPERATOR-C Primary care physician Active Team Status: Inactive Member Role/Relationship Status Dates Zebulun Beam VSC, FABRICATION OPERATOR-C Primary care physician Active Start: September 04, 2024 End: September 13, 2024 Dr. Qamar Smith MD Admitting physician Active Start: September 04, 2024 End: September 13, 2024 Dr. Qamar Smith MD Attending physician Active Start: September 04, 2024 End: September 13, 2024 Dr. Cecily Rudd MD Nurse Practitioner Active Start: September 04, 2024 End: September 13, 2024 Team Status: Inactive Member Role/Relationship Status Dates Zebulun Beam VSC, FABRICATION OPERATOR-C Primary care physician Active Start: September 13, 2024 End: September 13, 2024 Dr. Qamar Smith MD Attending physician Active Start: September 13, 2024 End: September 13, 2024 Dr. Qamar Smith MD Referring Provider Active Start: September 13, 2024 End: September 13, 2024 Team Status: Inactive Member Role/Relationship Status Dates Zebulun Beam VSC, FABRICATION OPERATOR-C Primary care physician Active Start: October 18, 2024 End: October 18, 2024 Zebulun Beam VSC, FABRICATION OPERATOR-C Attending physician Active Start: October 18, 2024 End: October 18, 2024 Zebulun Beam VSC, FABRICATION OPERATOR-C Referring Provider Active Start: October 18, 2024 End: October 18, 2024 Team Status: Inactive Member Role/Relationship Status Dates Zebulun Beam VSC, FABRICATION OPERATOR-C Primary care physician Active Start: October 23, 2024 End: October 23, 2024 Ankit Marsh MD Attending physician Active Sta rt: October 23, 2024 End: October 23, 2024 Ankit Marsh MD Emergency Department Physician Activ e Start: October 23, 2024 End: October 23, 2024 Team Status: Inactive Member Role/Relationship Status Dates Zebulun Beam VSC, FABRICATION OPERATOR-C Primary care physician Active Start: November 07, 2024 End: November 08, 2024 Dr. Lluvia Vann MD Emergency [facility] t Physician Active Start: November 07, 2024 End: November 08, 2024 Dr. Annette Mendez MD Admitting physician Active Start: November 07, 2024 End: November 08, 2024 Dr. Annette Mendez MD Nurse Practitioner Active Start: November 07, 2024 End: November 08, 2024 Dr. Saroj Puga DO Attending physician Active Start: November 07, 2024 End: November 08, 2024 Team Status: Active Member Role/Relationship Status Dates Zebulun Beam VSC, FABRICATION OPERATOR-C Primary care physician Active Start: November 08, 2024 Dr. [facility]lu[facility]ann [facility] Active Start: November 08, 2024 Dr. Annette Mendez MD Admitting physician Active Start: November 08, 2024 Dr. Annette Mendez MD Nurse Practitioner Active Start: November 08, 2024 Dr. Saroj Puga DO Attending physician Active Start: November 08, 2024 Dr. Saroj Puga DO Nurse Practitioner Active Start: November 08, 2024 Team Status: Inactive Member Role/Relationship Status Dates Zebulun Beam VSC, FABRICATION OPERATOR-C Primary care physician Active Start: November 20, 2024 End: November 21, 2024 Dr. Kavin Adams DO Attending physician Active Star t: November 20, 2024 End: November 21, 2024 Dr. Kavin Adams DO Emergency Department Physician Active Start: November 20, 2024 End: November 21, 2024 Dr. Rachana Nichols MD Nurse Practitioner Active Start: November 20, 2024 End: November 21, 2024 Team Status: Active Member Role/Relationship Status Dates Zebulun Beam VSC, FABRICATION OPERATOR-C Primary care physician Active Start: November 20, 2024 Dr. Kavin Adams DO Emergency Department Physician Active Start: November 20, 2024 Dr. Rachana Nichols MD Attending physician Active Start: November 20, 2024 Dr. Rachana Nichols MD Nurse Practitioner Active Start: November 20, 2024 Team Status: Inactive Member Role/Relationship Status Dates Zebulun Beam VSC, FABRICATION OPERATOR-C Primary care physician Active Start: November 25, 2024 End: November 25, 2024 Dr. Demarcus Gauthier MD Attending physician Active Start: November 25, 2024 End: November 25, 2024 Dr. Demarcus [facility]authier [facility] Phys[facility] Active Start: November 25, 2024 End: November 25, 2024 Team Status: Inactive Member Role/Relationship Status Dates Aubrey Lopez VSC, FABRICATION OPERATOR-C Primary care physician Active Start: December 17, 2024 End: December 17, 2024 Dr. Johnny Colunga , Attending physician Active Start: November End: December 17, 2024 Dr. Johnny Colunga , Emergency Department Physician Active Start: December 17, 2024 End: December 17, 2024 Goals (unrecognized section and content) Goals [...] BE BASED ON THE PRIMARY CLINICAL RECORDS. [employer] provides no warranty or guarantee of the accuracy or completeness of information in this document.
[2025-01-19 07:46] LABS: Lipase 29 U/L (13-75); Magnesium 1.6 mg/dL (1.5-2.2)
[2025-01-19] MEDS: metroNIDAZOLE 500 MG/100 ML BAG 100 MG IV ×3 (09:10→21:52)
[2025-01-19 09:28] LABS: Vitamin B12 1212 pg/mL (180-914)
[2025-01-19] MEDS: Lactobacillis Acidophilus 1 CAP PO ×4 (10:45→21:48)
[2025-01-19] MEDS: Pantoprazole Sodium 40 MG in 0.9% Normal Saline (100mL MB+) 100 ML 330 MG IV (10:52)
[2025-01-19] MEDS: Multivitamins 10 ML in 0.9% Normal Saline (500mL Bag) 500 ML 510 ML IV (11:22)
[2025-01-19] MEDS: KCL 40mEq in 0.9% NS 40 MEQ/1,000 ML IV.SOLN 125 MEQ IV ×2 (11:22→19:01)
[2025-01-19] MEDS: morphine SR 15 MG Tablet 60 MG PO (11:23)
--- NOTE | 2025-01-19 11:32 | PCM.HOSP.N ---
Hospitalist Note Patient admitted early this morning for abdominal pain, nausea with vomiting and diarrhea. Medical history significant for colon cancer s/p right hemicolectomy in 2023 with recurrence in 2024 with hepatic metastases. She follows with Dr. Poole with [facility], last office visit on 12/31. Reviewed office note in [facility]. Noted then that patient had a CT scan in late November that showed progression and liver metastases. Because of this, he switched treatment from 5FU to irinotecan with plan for [address] cycles [address] then repeat CT scan after this. He also noted that her right lower quadrant pain at that time was presumably secondary to surgical nerve damage. Patient completed her first infusion of irinotecan on 01/07 and did fairly well after this until yesterday evening when she presented to the ED with symptoms as above. CT abdomen pelvis on this admission showed interval appearance of ground glass densities in the left lower lobe concerning for developing pneumonia, no change in metastatic lesions, mild diffuse thickening of the colon probably secondary to colitis and mild diffuse thickening of the bladder suggestive of mild cystitis. Patient notably was hospitalized here in late November with a C. difficile infection and treated with p.o. vancomycin. C. difficile testing on this admission is negative. Stool PCR panel is pending. I saw the patient at bedside midmorning. Patient was mildly fatigued appearing but otherwise sitting back fairly comfortably in bed and not ill-appearing. Noted that she does feel improved from overnight with IV fluid resuscitation and pain control. She would like to try regular diet today and see how she does with this. She has not had any diarrhea now for the past few hours. She continues to report right lower quadrant pain but it appears this is more chronic than acute. Will continue treatment with IV Levaquin and IV Flagyl today. Worked with physical therapy this morning and had good therapy scores. Pending her infectious workup, patient may be medically ready for discharge home tomorrow. Full progress note to follow tomorrow.
[2025-01-19 13:58] LABS: FOLATES,SERUM (FOLIC ACID) 32.10 ng/mL (4.60-34.80)
[2025-01-20] VITALS (7 sets, daily range): BP systolic 84–128; BP diastolic 55–72; PULSE 87–100; RESP 16–18; TEMP 36.8–37.4; O2SAT 94–100; BMI 14.2
[2025-01-20] MEDS: metroNIDAZOLE 500 MG/100 ML BAG 100 MG IV ×3 (05:17→22:13)
[2025-01-20 05:27] LABS: Hematocrit 25.0 % (37-47); Hemoglobin 8.3 g/dL (12.0-15.0); Immature Granulocytes Count 0.070 X10^3/uL (0.0-0.0); Mean Corp Hgb Conc 33.2 g/dL (32-36); Mean Corpuscular Volume 89.3 fL (81-99); Mean Platelet Vol. 10.8 fl (6.2-12.0); NRBC Flagged by Analyzer 0 % (0-5); POSITIVE DIFFERENTIAL YES; Platelet Count 237 K/mm3 (150-450); RBC Distribution Width CV 16.5 % (11.6-14.6); RBC Distribution Width SD 53.2 fl (35.1-43.9); Red Blood Count 2.80 M/mm3 (4.2-5.4); White Blood Count 7.7 K/mm3 (4.4-11.0)
[2025-01-20 05:45] LABS: AST(SGOT) 29 U/L (<=31); Alanine Aminotransfer ALT/SGPT < 5 U/L (<=34); Albumin, Serum 2.5 g/dL (3.4-4.8); Alkaline Phosphatase 73 U/L (35-104); Anion Gap 12 (5-15); BUN 7 mg/dL (4-19); BUN/Creat Ratio 13.2 RATIO (10-20); Calcium,Total 7.4 mg/dL (7.6-11.0); Carbon Dioxide 18.0 mmol/L (21.0-32.0); Chloride 106 mmol/L (98-108); Estimated Creatinine Clearance 37.85 ml/min (50-250); Globulin 2.2 g/dL (2.2-4.2); Glucose 76 mg/dL (70-99); Potassium 4.5 mmol/L (3.3-5.1)
[2025-01-20] MEDS: Pantoprazole Sodium 40 MG in 0.9% Normal Saline (100mL MB+) 100 ML 330 MG IV (09:32)
[2025-01-20] MEDS: Lactobacillis Acidophilus 1 CAP PO ×4 (09:33→22:13)
--- NOTE | 2025-01-20 10:06 | CASEMGMT ---
REAL WILLSON received call from Pt sister, Bianka, who is listed as a electrical contacts adjuster for Pt. Bianka states they have concerns with pt going home, Pt has stage 4 colon cancer and is getting treatment through [facility]. States Pt is set up with their palliative care as well. Family was hoping to get her in rehab, family is all out of the state and not able to help. Had a family service aide at one point but Pt didn't like strangers coming in her home so she canceled them. Bianka states Pt is having a hard time cleaning. According to notes, Pt is alert and oriented and did well with therapy. REAL WILLSON explained to Pt sister it is Pt decision if she gets HHC or SNF placement, and reading therapy notes, SNF is not appropriate at this time. REAL WILLSON will follow up with Pt to see if they are interested in any HHC.
--- NOTE | 2025-01-20 12:22 | PCM.PN.HOSP ---
Reason for Visit Chief Complaint: Abdominal Pain, Nausea, Vomiting and Diarrhea. Subjective Subjective Patient is a 64-year-old lady with history of colon cancer status post right John colectomy in 2023 with recurrence in 2024 with hepatic metastasis presented to the emergency department with nausea vomiting and abdominal pain. CT of the abdomen and pelvis obtained on admission demonstrated interval appearance of ground glass densities in the left lobe concerning for developing pneumonia as well as mild diffuse thickening of the colon consistent with colitis. Admitted to monitored bed for subsequent eval Objective Data Objective Data Vital Signs: Vital Signs Temp Pulse Resp BP Pulse Ox O2 Del Method 98.3 F 100 16 91/55 L 100 Room Air 01/20/25 09:17 01/20/25 11:19 01/20/25 09:17 01/20/25 11:19 01/20/25 11:19 01/20/25 11:19 Oxygen Delivery Method Room Air Weight: 36.5 kg Body Mass Index (BMI) 14.2 Intake & Output: Intake and Output for Last 24 Hours 01/18/25 01/19/25 01/20/25 23:59 23:59 23:59 Intake Total 4456.25 / 4456.25 1200 / 1200 Balance 4456.25 / 4456.25 1200 / 1200 Medical Nutrition Assessment Dietitian: Malnutrition Criteria Met Start: 01/19/25 17:20 Freq: Status: Active Protocol: Document 01/19/25 17:20 ARELI (Rec: 01/19/25 17:20 [facility] [id number]) Nutrition Malnutrition Evidence of Yes Malnutrition Exists Malnutrition (severe Chronic ): Evidenced By Suboptimal Energy Intake (Severe),Weight Loss (Severe) Clinical Problem Chronic Disease or Condition Related Malnutrition Etiology related to physiological changes affecting appetite and oral intakes Signs/Symptoms as evidenced by significant weight loss of 10.7% in ~1 month based upon current weight of 75lb and 12/17/24 weight of 84lb as well as pt report of oral intakes meeting less than 50% of nutrient needs for at least one month. Status Active Problem Recommendation Dietitian Continue with Regular - General diet at this time for Recommendations/ liberalization and to promote oral intakes. Will change Changes ONS order to eze EPHP TID w/ meals, eze Magic Cup w/ lunch and fortified foods as able. Pt agreeable. Will continue to follow, monitor oral intakes and modify nutrition interventions as needed. Lab / Micro Data 01/20/25 04:49 01/20/25 04:49 Labs: Laboratory Results - last 24 hr 01/19/25 11:40: Serum Folate 32.10 01/20/25 04:49: WBC 7.7, RBC 2.80 L, Hgb 8.3 L, Hct 25.0 L, MCV 89.3, MCH 29.6, MCHC 33.2 D, RDW Std Deviation 53.2 H, RDW Coeff of Yury 16.5 H, Plt Count 237, MPV 10.8, Immature Gran % (Auto) 0.900, Neut % (Auto) 77.8 H, Lymph % (Auto) 7.0 L, Barry % (Auto) 13.4 H, Eos % (Auto) 0.5, Baso % (Auto) 0.4, Absolute Neuts (auto) 6.0, Absolute Lymphs (auto) 0.54 L, Nucleated RBC % 0, Sodium 135, Potassium 4.5, Chloride 106, Carbon Dioxide 18.0 L, Anion Gap 12, BUN 7, Creatinine 0.57 L, Estim Creat Clear Calc 37.85 L, Est GFR (MDRD) Non-Af 101, BUN/Creatinine Ratio 13.2, Glucose 76, Calcium 7.4 L, Total Bilirubin 0.22, AST 29, ALT < 5, Alkaline Phosphatase 73, Total Protein 4.8 L, Albumin 2.5 L, Globulin 2.2, Albumin/Globulin Ratio 1.1 Micro: Microbiology 01/19/25 06:10 Urine, Clean Catch Urine Culture - Preliminary GPC Poss Enterococcus sp GNR lactose circular saw operator GNR lactose circular saw operator#2 01/19/25 03:51 Stool Stool Lactoferrin - Final 01/19/25 03:51 Stool Enteric Bacteriology - Final 01/19/25 06:10 Urine, Clean Catch Legionella Antigen - Final 01/19/25 06:10 Urine, Clean Catch Streptococcus pneumoniae Antigen (M - Final 01/19/25 03:51 Stool Clostridioides difficile (PCR) - Final Physical Exam Narrative GENERAL: Cachectic looking HEENT: Atraumatic; normocephalic EYES; Anicteric, Normal Conjunctiva NECK; supple, normal thyroid, RESPIRATORY: Diminished to auscultation CARDIOVASCULAR: Regular S1 S2, GI: soft, normoactive bowel sounds, : No Renal angle tenderness; EXTREMITIES: No edema, no clubbing, MUSCULOSKELETAL: no muscle wasting NEURO: Awake; no lateralizing signs. SKIN: No Rash PSYCH; Flat affect Assessment & Plan Assessment/Plan (1) Pneumonia: QUALIFIERS: Pneumonia type: due to unspecified organism Laterality: left Lung location: lower lobe of lung Qualified Code(s): J18.9 - Pneumonia, unspecified organism (2) Colitis: PLAN: Plan Patient is a 64-year-old lady with history of colon cancer status post right John colectomy in 2023 with recurrence in 2024 with hepatic metastasis presented to the emergency department with nausea vomiting and abdominal pain. CT of the abdomen and pelvis obtained on admission demonstrated interval appearance of ground glass densities in the left lobe concerning for developing pneumonia as well as mild diffuse thickening of the colon consistent with colitis. Admitted to monitored bed for subsequent eval 1. Acute colitis ?CT scan of the abdomen and pelvis that revealed interval appearance of ground-glass densities in the Left lower lobe, possibly developing Pneumonia (likely due to aspiration) with no significant change in number of previously described hypodense metastatic liver lesions, possibly representing necrosis from treatment with unchanged ~6.2 mm enhancing nodule in the inferior wall of the gallbladder and unchanged mild diffuse thickening of the wall of the gallbladder along with mild diffuse thickening of the colon, increased, probably Colitis without perforation or pneumatosis coli plus mild diffuse thickening of the bladder suggestive of mild cystitis. Patient was managed with metronidazole and levofloxacin 2. Acute cystitis ? Patient had mild pyuria as well as positive leukocyte esterase. Patient was started on broad-spectrum antibiotic therapy with levofloxacin we will continue and follow-up on the results of culture 3. Pneumonia Diarrhea suspected gram-negative organisms given patient immunocompromise state broad-spectrum antibiotic therapy with Levaquin, metronidazole and Vanco initiated on admission cultures 4. Chronic hypotension ? Currently asymptomatic will monitor 5. History of colon cancer ?status post right John colectomy in 2023 with recurrence in 2024 with hepatic metastasis. Patient is followed by [facility] oncology plan is for patient to resume care following discharge 6. Severe dehydration ? Secondary to GI losses from nausea and vomiting rehydrated with IV fluid 7. Hypokalemia ? Corrected per protocol 8. Anemia ? Secondary to chronic disorder monitoring H&H and transfuse if patient becomes symptomatic or hemoglobin falls below 7 9. Depression with anxiety ? Patient is on buspirone as well as sertraline continue 10. Peripheral neuropathy ? Patient is on gabapentin continue 11. Severe protein calorie malnutrition ? With severe cachexia and BMI of 40.3 as well as muscle wasting consult placed to dietitian 12. Physical deconditioning ? Requested for PT OT eval and high school social studies teacher to assist with discharge planning 13. DVT prophylaxis ? On enoxaparin Time spent in the patient's overall evaluation,decision-making process, review of diagnostic data, adjustment of management, discussion with other providers, nursing nursing and ancillary staff involved in patient's care documentation, 50 Minutes
--- NOTE | 2025-01-20 13:26 | CASEMGMT ---
Addendum entered by Jelani Stewart 01/20/25 16:00: [facility] HH returns call and states that they are able to accept with SOC TBD contingent on pt's DC date. PROGRAMMING DEVELOPMENT PROJECT MANAGER ANAMIKA notified. Original Note: RN ANAMIKA Assessment Face to Face with patient for initial transition planning/care coordination assessment. REAL WILLSON introduced self and role at [facility], pt voices understanding. Pt is A&Ox4 and is resting comfortably in bed and is calm. Pt's sister, Bianka, is on speakerphone. Care providers, pharmacy, and demographics verified. Admitting dx: PNA, NVD, ABD Pain, Dehydration LACE Strata: 3 PCP: [facility] Specialists: Zulema (Oncology), Dr. Spring ([facility] Surgeon) Preferred Pharmacy: [facility] Insurance: [facility] A/B Prescription Benefit: None LNOK: Bianka (Sister), Jeanette (Sister) Living Arrangements: Pt lives alone in a single story home with one step to enter. However, pt states that she plans to DC to her friend's home ([address] [place] [address]). Pt states that the couple that live there will be able to support her after DC due to the pt's family being out of state ADLs/IADLs: Pt reports that she is indep at baseline Transportation: Pt does not drive currently. Pt states that her friends are able to drive her DME: Access to a FWW. Denies further needs HHC/SNF: Reports HH history through [facility]. Reports hx at [facility] and [place]. Pt is requesting to be set up with C again. Pt is aware of the required homebound status for MCR. At this time, the pt declines wanting to review a list of local in-network HHC Agencies and states that she prefers [facility] HH. TC to [facility] HH. No answer, VM left with referral. Awaiting return response. Pt also reports that she has a hx with [facility] Pall[facility] and that it was recently changed to [facility] services. EMail sent to [facility] to notify of admission. [facility] confirms pt is active with their Services. Pt?s goal: Home with HH, resume Palliative Care. Plan: DC to pt's friend's home with skilled HHC, follow for Rx costs. Pt plans to follow up with her oncologist as an OP. Pt states that she feels safe with this plan and denies any further questions or concerns at this time. Report given to RIP NOBLE CM. Son Stewart RN, CM
[2025-01-20] MEDS: 0.9% Saline Lock 10 ML Syringe IV ×2 (20:32→22:26)
[2025-01-20] MEDS: morphine SR 15 MG Tablet 60 MG PO (22:40)
[2025-01-21 04:01] VITALS: BMI 14.6
[2025-01-21 04:51] VITALS: BP 100/57; PULSE 70; RESP 14; TEMP 36.7; O2SAT 98
[2025-01-21 05:52] LABS: Hematocrit 23.7 % (37-47); Hemoglobin 7.8 g/dL (12.0-15.0); Immature Granulocytes Count 0.130 X10^3/uL (0.0-0.0); Mean Corp Hgb Conc 32.9 g/dL (32-36); Mean Corpuscular Volume 87.5 fL (81-99); Mean Platelet Vol. 10.3 fl (6.2-12.0); NRBC Flagged by Analyzer 0 % (0-5); Platelet Count 223 K/mm3 (150-450); RBC Distribution Width CV 16.6 % (11.6-14.6); RBC Distribution Width SD 52.6 fl (35.1-43.9); Red Blood Count 2.71 M/mm3 (4.2-5.4); White Blood Count 8.6 K/mm3 (4.4-11.0)
[2025-01-21 06:20] LABS: Magnesium 1.5 mg/dL (1.5-2.2)
[2025-01-21 06:22] LABS: Anion Gap 8 (5-15); BUN 7 mg/dL (4-19); BUN/Creat Ratio 14.2 RATIO (10-20); Calcium,Total 7.9 mg/dL (7.6-11.0); Carbon Dioxide 22.2 mmol/L (21.0-32.0); Chloride 107 mmol/L (98-108); Estimated Creatinine Clearance 41.50 ml/min (50-250); Glucose 97 mg/dL (70-99); Potassium 2.9 mmol/L (3.3-5.1)
[2025-01-21] MEDS: metroNIDAZOLE 500 MG/100 ML BAG 100 MG IV (07:02)
[2025-01-21 08:49] VITALS: BP 88/44; PULSE 68; RESP 15; TEMP 36.5; O2SAT 99
[2025-01-21] MEDS: Pantoprazole Sodium 40 MG in 0.9% Normal Saline (100mL MB+) 100 ML 330 MG IV ×2 (10:10→10:49)
--- NOTE | 2025-01-21 10:15 | DS.PCM_ITS ---
Providers Date of Admission: 01/19/25 Primary Care Physician: VEENA Kothari, [employer]CH[employer] Reason For Visit: PNEUMONIA, N/V/D AND ABDOMINAL PAIN W/ DEHYDRATION Diagnosis Discharge Diagnosis (1) Pneumonia: Status: Acute Code(s): J18.9 - Pneumonia, unspecified organism Qualifiers: Pneumonia type: due to unspecified organism Laterality: left Lung location: lower lobe of lung Qualified Code(s): J18.9 - Pneumonia, unspecified organism (2) Colitis: Status: Acute Code(s): K52.9 - Noninfective gastroenteritis and colitis, unspecified Plan Patient is a 64-year-old lady with history of colon cancer status post right John colectomy in 2023 with recurrence in 2024 with hepatic metastasis presented to the emergency department with nausea vomiting and abdominal pain. CT of the abdomen and pelvis obtained on admission demonstrated interval appearance of ground glass densities in the left lobe concerning for developing pneumonia as well as mild diffuse thickening of the colon consistent with colitis. Admitted to monitored bed for subsequent eval 1. Acute colitis ?CT scan of the abdomen and pelvis that revealed interval appearance of ground- glass densities in the Left lower lobe, possibly developing Pneumonia (likely due to aspiration) with no significant change in number of previously described hypodense metastatic liver lesions, possibly representing necrosis from treatment with unchanged ~6.2 mm enhancing nodule in the inferior wall of the gallbladder and unchanged mild diffuse thickening of the wall of the gallbladder along with mild diffuse thickening of the colon, increased, probably Colitis without perforation or pneumatosis coli plus mild diffuse thickening of the bladder suggestive of mild cystitis. Patient was managed with metronidazole and levofloxacin 2. Acute cystitis ? Patient had mild pyuria as well as positive leukocyte esterase. Patient was started on broad-spectrum antibiotic therapy with levofloxacin we will continue and follow-up on the results of culture ? Patient urine cultures came back positive for VRE, and nonsignificant gram- negative lactose cordage sales representative growth. Patient was discharged on Augmentin for 7 days 3. Pneumonia Diarrhea suspected gram-negative organisms given patient immunocompromise state broad-spectrum antibiotic therapy with Levaquin, metronidazole and Vanco initiated on admission cultures 4. Chronic hypotension ? Currently asymptomatic will monitor 5. History of colon cancer ?status post right John colectomy in 2023 with recurrence in 2024 with hepatic metastasis. Patient is followed by [facility] oncology plan is for patient to resume care following discharge 6. Severe dehydration ? Secondary to GI losses from nausea and vomiting rehydrated with IV fluid 7. Hypokalemia ? Corrected per protocol 8. Anemia ? Secondary to chronic disorder monitoring H&H and transfuse if patient becomes symptomatic or hemoglobin falls below 7 9. Depression with anxiety ? Patient is on buspirone as well as sertraline continue 10. Peripheral neuropathy ? Patient is on gabapentin continue 11. Severe protein calorie malnutrition ? With severe cachexia and BMI of 40.3 as well as muscle wasting consult placed to dietitian 12. Physical deconditioning ? Requested for PT OT eval and social work program coordinator to assist with discharge planning 13. DVT prophylaxis ? On enoxaparin 14. Hypokalemia ? Corrected per protocol, prescription written on discharge Time spent in the patient's overall evaluation,decision-making process, review of diagnostic data, adjustment of management, discussion with other providers, nursing nursing and ancillary staff involved in patient's care documentation, 35 Minutes Medications at Discharge Home Medications buspirone 7.5 mg tablet 7.5 mg PO DAILY Mood 10/18/23 sertraline 50 mg tablet 50 mg PO DAILY Mood 10/18/23 hydromorphone 2 mg tablet 2 - 4 mg (1 - 2 x 2 mg) PO Q4H PRN PRN PAIN 6-10 7 days #42 tabs 09/12/24 methocarbamol 750 mg tablet 750 mg PO Q8 30 days #90 tabs 09/12/24 ondansetron 4 mg disintegrating tablet 4 mg PO Q8H PRN PRN Nausea 30 days #90 tabs 09/12/24 gabapentin 100 mg capsule 300 mg PO Q8H pain 01/19/25 morphine 60 mg tablet,extended release 60 mg PO BID PRN PRN pain 01/19/25 amoxicillin 875 mg-potassium clavulanate 125 mg tablet 1 tab PO BID 7 days #14 tabs 01/21/25 potassium chloride 20 mEq tablet,extended release(part/cryst) 20 meq PO BIDCM #60 tabs 01/21/25 Physical Exam Narrative GENERAL: Cachectic looking HEENT: Atraumatic; normocephalic EYES; Anicteric, Normal Conjunctiva NECK; supple, normal thyroid, RESPIRATORY: Diminished to auscultation CARDIOVASCULAR: Regular S1 S2, GI: soft, normoactive bowel sounds, : No Renal angle tenderness; EXTREMITIES: No edema, no clubbing, MUSCULOSKELETAL: no muscle wasting NEURO: Awake; no lateralizing signs. SKIN: No Rash PSYCH; Flat affect Medical Records Data Medical Nutrition Assessment Dietitian: Malnutrition Criteria Met Start: 01/19/25 17:20 Freq: Status: Active Protocol: Document 01/19/25 17:20 ARELI (Rec: 01/19/25 17:20 [facility] [id number]) Nutrition Malnutrition Evidence of Yes Malnutrition Exists Malnutrition (severe Chronic ): Evidenced By Suboptimal Energy Intake (Severe),Weight Loss (Severe) Clinical Problem Chronic Disease or Condition Related Malnutrition Etiology related to physiological changes affecting appetite and oral intakes Signs/Symptoms as evidenced by significant weight loss of 10.7% in ~1 month based upon current weight of 75lb and 12/17/24 weight of 84lb as well as pt report of oral intakes meeting less than 50% of nutrient needs for at least one month. Status Active Problem Recommendation Dietitian Continue with Regular - General diet at this time for Recommendations/ liberalization and to promote oral intakes. Will change Changes ONS order to eze EPHP TID w/ meals, eze Magic Cup w/ lunch and fortified foods as able. Pt agreeable. Will continue to follow, monitor oral intakes and modify nutrition interventions as needed. Weight / BMI Weight Weight: 37.5 kg Body Mass Index (BMI) 14.6 ABG / Lab / Microbiology Data 01/21/25 05:29 01/21/25 05:29 Laboratory: Laboratory Results - last 24 hr 01/21/25 05:29: WBC 8.6, RBC 2.71 L, Hgb 7.8 L, Hct 23.7 L, MCV 87.5, MCH 28.8, MCHC 32.9, RDW Std Deviation 52.6 H, RDW Coeff of Yury 16.6 H, Plt Count 223, MPV 10.3, Immature Gran % (Auto) 1.500 H, Neut % (Auto) 80.6 H, Lymph % (Auto) 7.6 L , [place] % (Auto) 8.5, Eos % (Auto) 1.6, Baso % (Auto) 0.2, Absolute Neuts (auto) 6.9, Absolute Lymphs (auto) 0.65 L, Nucleated RBC % 0, Sodium 138, Potassium 2.9 L, Chloride 107, Carbon Dioxide 22.2, Anion Gap 8, BUN 7, Creatinine 0.49 L, E stim Creat Clear Calc 41.50 L, Est GFR (MDRD) Non-Af 105, BUN/Creatinine Ratio 14.2, Glucose 97, Calcium 7.9, Phosphorus 2.6 L, Magnesium 1.5 Microbiology: Microbiology 01/19/25 06:00 Blood Culture (Wb) - Venous Blood Culture - Preliminary No growth in 48 hours. 01/19/25 05:54 Blood Culture (Wb) - Port Blood Culture - Preliminary No growth in 48 hours. 01/19/25 06:10 Urine, Clean Catch Urine Culture - Final Vancomycin Resist. E. faecalis GNR lactose cordage sales representative GNR lactose cordage sales representative#2 01/19/25 03:51 Stool Stool Lactoferrin - Final 01/19/25 03:51 Stool Enteric Bacteriology - Final 01/19/25 06:10 Urine, Clean Catch Legionella Antigen - Final 01/19/25 06:10 Urine, Clean Catch Streptococcus pneumoniae Antigen (M - Final 01/19/25 03:51 Stool Clostridioides difficile (PCR) - Final D/C Instructions DC O2, CPAP, BIPAP Needs Home O2 Discharge instructions: No Meaningful Use Info Meaningful Use Meaningful Use Diagnoses (Choose all that apply): None applicable Discharge Plan Admission Admit Date/Time: 01/19/25 06:43 Attending Provider: Doni Smith Primary Care Provider: Aubrey Lopez [facility] Consulting Providers: Doni Caballero; Saroj Puga Discharge Orders/Prescriptions Prescriptions: New potassium chloride 20 mEq Tablet,Er Particles/Crystals 20 meq PO BIDCM Qty: 60 0RF amoxicillin-pot clavulanate 875-125 mg tablet 1 tab PO BID 7 Days Qty: 14 0RF Continued sertraline 50 mg tablet 50 mg PO DAILY buspirone 7.5 mg tablet 7.5 mg PO DAILY hydromorphone 2 mg Tablet 2 - 4 mg PO Q4H PRN PRN (Reason: PAIN 6-10) 7 Days Qty: 42 0RF methocarbamol 750 mg Tablet 750 mg PO Q8 30 Days Qty: 90 0RF ondansetron 4 mg Tablet,Disintegrating 4 mg PO Q8H PRN PRN (Reason: Nausea) 30 Days Qty: 90 0RF gabapentin 100 mg Capsule 300 mg PO Q8H morphine 60 mg tablet extended release 60 mg PO BID PRN PRN (Reason: pain) Referrals / Follow Up: Aubrey Lopez [facility], [employer]-C [Primary Care Provider, Family Practice] - Within 2 Weeks Disposition Disposition (needs filled in before D/C Order can be placed): Home, Self Care Charges/Coding Visit Charges Inpatient E&M: 56921 Disch Hosp >30min
[2025-01-21] MEDS: morphine SR 15 MG Tablet 60 MG PO (10:17)
[2025-01-21] MEDS: Lactobacillis Acidophilus 1 CAP PO (10:17)
[2025-01-21 10:24] VITALS: BP 83/48; PULSE 77; RESP 15; TEMP 36.7; O2SAT 95
[2025-01-21] MEDS: Potassium Chloride Oral Tablet 20 MEQ PO (10:48)
[2025-01-21] MEDS: Potassium Chloride Oral Tablet 20 MEQ 40 MEQ PO (10:48)
[2025-01-21] MEDS: Ampicillin/Sulbactam 3 GM in 0.9% Normal Saline (100mL MB+) 100 ML IV (10:55)
--- NOTE | 2025-01-21 11:09 | CASEMGMT ---
Patient has order for discharge. REAL WILLSON called [facility] and notified of discharge, start of care planned for . REAL WILLSON in to discuss discharge plan with patient, friend at bedside. REAL WILLSON updated patient of [facility] setup and start of care planned for . Patient denies further needs or concerns at discharge. Patient had no further questions. REAL WILLSON updated discharge plan.
--- NOTE | 2025-01-21 11:10 | PHA.DC.MC.R ---
Pharmacy [facility] Counseling Pharmacy Service has performed discharge medication reconciliation and counseling for this patient. The patient's discharge medication list was reviewed for discrepancies and discrepancies were resolved. The patient was counseled on the following discharge medications and changes in medications for homegoing were reviewed. The Reason for Use, instructions for use, and potential side effects were reviewed for all new medications. The patient's questions regarding all of their medications were answered. 1. Amoxicillin/clavulanate 875/125 mg PO BID x 7 days 2. Potassium chloride 20 mEq Po BID The patient was able to verbally demonstrate an understanding of their discharge medications. Medications at Discharge Home Medications buspirone 7.5 mg tablet 7.5 mg PO DAILY Mood 10/18/23 sertraline 50 mg tablet 50 mg PO DAILY Mood 10/18/23 hydromorphone 2 mg tablet 2 - 4 mg (1 - 2 x 2 mg) PO Q4H PRN PRN PAIN 6-10 7 days #42 tabs 09/12/24 methocarbamol 750 mg tablet 750 mg PO Q8 30 days #90 tabs 09/12/24 ondansetron 4 mg disintegrating tablet 4 mg PO Q8H PRN PRN Nausea 30 days #90 tabs 09/12/24 gabapentin 100 mg capsule 300 mg PO Q8H pain 01/19/25 morphine 60 mg tablet,extended release 60 mg PO BID PRN PRN pain 01/19/25 amoxicillin 875 mg-potassium clavulanate 125 mg tablet 1 tab PO BID 7 days #14 tabs 01/21/25 potassium chloride 20 mEq tablet,extended release(part/cryst) 20 meq PO BIDCM #60 tabs 01/21/25
== END 2025-01-21 12:51 | disposition home health service (06) | DRG 391 ==
LOC: ED 06:45 → PCU 06:58
PROVIDERS: Admitting Provider Internal Medicine; Emergency Provider Emergency Medicine; Visit Provider Internal Medicine
DX: K52.9 Noninfective gastroenteritis and colitis, unspecified (principal); J69.0 Pneumonitis due to inhalation of food and vomit; E43 Unspecified severe protein-calorie malnutrition; C78.7 Secondary malignant neoplasm of liver and intrahepatic bile duct; C18.9 Malignant neoplasm of colon, unspecified; N30.00 Acute cystitis without hematuria; Z68.1 Body mass index [BMI] 19.9 or less, adult; D63.0 Anemia in neoplastic disease; Z86.74 Personal history of sudden cardiac arrest; E86.0 Dehydration; F32.A Depression, unspecified; G62.9 Polyneuropathy, unspecified; I25.10 Atherosclerotic heart disease of native coronary artery without angina pectoris; E87.6 Hypokalemia; I95.89 Other hypotension; F41.9 Anxiety disorder, unspecified; I25.2 Old myocardial infarction; M62.838 Other muscle spasm; Z90.49 Acquired absence of other specified parts of digestive tract; Z79.899 Other long term (current) drug therapy; Z87.891 Personal history of nicotine dependence
CPT/HCPCS: 36415; 36591; 36600; 74177; 80048; 80053; 81001; 82010; 82607; 82746; 82803; 83036; 83605; 83630; 83690; 83735; 84100; 84443; 85025; 85610; 85730; 87040; 87077; 87086; 87088; 87186; 87449; 87493; 87506; 94668; 97162; 97165; 97802; 99285; Q9967; A4216; J0295; J2405

== ENCOUNTER 2025-02-16 13:17 | Emergency (ER) | payer MEDICARE, SELFPAY ==
[2025-02-16 13:18] VITALS: BP 104/82; PULSE 91; RESP 18; TEMP 36; O2SAT 100; BMI 12.4
--- NOTE | 2025-02-16 13:53 | EX.ED.DYSGE1 ---
HPI History of Present Illness Chief Complaint: Weakness Narrative Narrative: 65-year-old female past medical history of colon carcinoma with metastasis to liver, sees Dr. Poole with the [facility] as her oncologist presents with concerns for dehydration. While she denies any fevers or chills, she is slightly nauseated but has not vomited. She denies any problems with bowel movements. Last bowel movement yesterday. She states she has had to come to the emergency department before where she receives IV fluids. She states that she gets chemotherapy every other week and last received it on Monday or Monday of last week approximately 7 days ago. She has not had an appetite so her p.o. intake has been lower which concerns her for dehydration. [facility] Medical History VRE (vancomycin resistant enterococcus) culture positive Hypotension Restless legs Cancer Marijuana abuse Alcohol dependence ETOH abuse IBS (irritable bowel syndrome) Anxiety Depression Seizure Seizure disorder Home Medications ?Medication ?Instructions ?Recorded ?Last Taken ?Type buspirone 7.5 mg tablet 7.5 mg PO DAILY Mood 10/18/23 09/04/24 08:50 History sertraline 50 mg tablet 50 mg PO DAILY Mood 10/18/23 09/04/24 08:50 History hydromorphone 2 mg tablet 2 - 4 mg (1 - 2 x 2 mg) PO Q4H PRN 09/12/24 11/20/24 13:00 Rx PRN PAIN 6-10 7 days #42 tabs methocarbamol 750 mg tablet 750 mg PO Q8 30 days #90 tabs 09/12/24 Unknown Rx ondansetron 4 mg disintegrating 4 mg PO Q8H PRN PRN Nausea 30 days 09/12/24 Unknown Rx tablet #90 tabs gabapentin 100 mg capsule 300 mg PO Q8H pain 01/19/25 Unknown History morphine 60 mg tablet,extended 60 mg PO BID PRN PRN pain 01/19/25 Unknown History release amoxicillin 875 mg-potassium 1 tab PO BID 7 days #14 tabs 01/21/25 Unknown Rx clavulanate 125 mg tablet potassium chloride 20 mEq 20 meq PO BIDCM #60 tabs 01/21/25 Unknown Rx tablet,extended release(part/cryst) Allergy/AdvReac Type Severity Reaction Status Date / Time erythromycin base Allergy TONGUE Verified 02/16/25 13:18 HALIMA Family History Sister Melanoma Father Prostate CA Surgical History History of placement of ureteral stent History of resection of small bowel History of right salpingo-oophorectomy History of lysis of adhesions History of exploratory laparotomy 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 Social History household members: none housing: apartment Smoking Status: Current every day smoker tobacco type: e-cigarettes alcohol intake: former year quit: 2020 substance use type: marijuana ROS ROS ED ROS Narrative Review of systems positive for decreased appetite, generalized weakness. No fevers or chills, no nausea or vomiting, no diarrhea. No exacerbating or alleviating factors. EXAM Physical Exam Narrative Exam Narrative: Afebrile. Vital signs noted. Nontoxic-appearing. Positive cachexia. Cardiovascular lamination regular rate and rhythm. Lungs are clear to auscultation bilaterally. Abdomen is soft and nontender without guarding or rebound. Positive bowel sounds. Neurological examination nonfocal, nonlateralizing. Awake, alert, interactive, pleasant. Const Vital Signs: 02/16/25 13:18 02/16/25 14:19 02/16/25 15:17 Temperature 96.8 F L Temperature Source Temporal Pulse Rate 91 63 Respiratory Rate 18 15 Respiratory Effort Normal Respiratory Pattern Normal Blood Pressure 104/82 H 104/61 Blood Pressure Mean 89 75 Pulse Ox 100 95 Oxygen Delivery Method Room Air Room Air MDM MDM MDM Narrative Medical decision making narrative: The differential diagnosis includes but not limited to dehydration versus other electrolyte abnormality versus intravascular volume depletion. She has not been febrile or having dysuria or other symptoms. Quite frankly, she is here for IV fluids and antinausea medication. Her Mediport was accessed by the RN. She was bolused normal saline 1 L intravenously and administered Zofran 4 mg intravenously. Check a CBC and a CMP. I reviewed her laboratory work and she has normal white count of 6.0, no neutropenia, hemoglobin stable at 8.6, I do not feel that she requires blood transfusion. Platelet count normal at 361. Electrolyte panel is grossly unremarkable with a normal BUN of 12 and creatinine low at 0.48, LFTs show alk phos slightly elevated at 139 which I think is nonspecific his AST and ALT are normal. Upon repeat examination after IV fluid bolus at approximately 1530, patient states she feels improved. She has enough Zofran at home for nausea. She is motivated for discharge. I feel she can be discharged to follow-up with her oncologist and/or her primary care provider and continue her chemotherapy. Return instructions to the emergency department were reviewed. Disposition is discharged home in stable condition. History & Record Review Discussion w/independent historian: Patient Additional record(s) reviewed:: Prior ED visit and Prior labs (Chronic anemia) Lab Data Attestation: I reviewed the patient's lab results. Labs: Laboratory Results - last 24 hr 02/16/25 13:50 WBC 6.0 RBC 3.17 L Hgb 8.6 L Hct 27.9 L MCV 88.0 MCH 27.1 MCHC 30.8 L RDW Std Deviation 57.2 H RDW Coeff of Yury 17.7 H Plt Count 361 MPV 10.3 Immature Gran % (Auto) 0.500 Neut % (Auto) 72.2 H Lymph % (Auto) 17.4 L [place] % (Auto) 3.4 Eos % (Auto) 5.7 H Baso % (Auto) 0.8 Absolute Neuts (auto) 4.3 Absolute Lymphs (auto) 1.04 Nucleated RBC % 0 Sodium 136 Potassium 3.8 Chloride 102 Carbon Dioxide 25.1 Anion Gap 9 BUN 12 Creatinine 0.48 L Estim Creat Clear Calc 36.11 L Est GFR (MDRD) Non-Af 104 BUN/Creatinine Ratio 25.1 H Glucose 115 H Calcium 8.4 Total Bilirubin 0.22 AST 17 ALT 9 Alkaline Phosphatase 139 H Total Protein 5.8 L Albumin 3.0 L Globulin 2.8 Albumin/Globulin Ratio 1.1 Discharge Plan Triage Chief Complaint: Weakness ED Provider: Ankit Marsh Dx/Rx/DC Orders Clinical Impression: Generalized weakness, Severe malnutrition Instructions: ED Weakness Uncertain Cause Prescriptions: No Action sertraline 50 mg tablet 50 mg PO DAILY buspirone 7.5 mg tablet 7.5 mg PO DAILY hydromorphone 2 mg Tablet 2 - 4 mg PO Q4H PRN PRN (Reason: PAIN 6-10) 7 Days Qty: 42 0RF methocarbamol 750 mg Tablet 750 mg PO Q8 30 Days Qty: 90 0RF ondansetron 4 mg Tablet,Disintegrating 4 mg PO Q8H PRN PRN (Reason: Nausea) 30 Days Qty: 90 0RF gabapentin 100 mg Capsule 300 mg PO Q8H morphine 60 mg tablet extended release 60 mg PO BID PRN PRN (Reason: pain) potassium chloride 20 mEq Tablet,Er Particles/Crystals 20 meq PO BIDCM Qty: 60 0RF amoxicillin-pot clavulanate 875-125 mg tablet 1 tab PO BID 7 Days Qty: 14 0RF Primary Care Provider: Aubrey Lopez Referrals: Aubrey Lopez, [employer] FINISHER-C [Primary Care Provider, Family Practice] - As Needed Activity Restrictions/Additional Instructions: Follow-up with Dr. Barrios as scheduled. Drink plenty of oral fluids. Return with fever, new or worsening symptoms. Print Language: Indian Disposition Disposition: Home, Self Care
[2025-02-16] MEDS: 0.9% Normal Saline (1000mL) 1,000 ML 999 ML IV (14:04)
[2025-02-16 14:10] LABS: Hematocrit 27.9 % (37-47); Hemoglobin 8.6 g/dL (12.0-15.0); Immature Granulocytes Count 0.030 X10^3/uL (0.0-0.0); Mean Corp Hgb Conc 30.8 g/dL (32-36); Mean Corpuscular Volume 88.0 fL (81-99); Mean Platelet Vol. 10.3 fl (6.2-12.0); NRBC Flagged by Analyzer 0 % (0-5); Platelet Count 361 K/mm3 (150-450); RBC Distribution Width CV 17.7 % (11.6-14.6); RBC Distribution Width SD 57.2 fl (35.1-43.9); Red Blood Count 3.17 M/mm3 (4.2-5.4); White Blood Count 6.0 K/mm3 (4.4-11.0)
--- OUTSIDE RECORDS SUMMARY | 2025-02-16 14:11 | XMS RPT_ITS | CCD ---
Author Organization [facility] ion [facility] Care Team Providers Care Airport Operations Specialist Name Role Phone Pushpa Barnhart Unavailable Unavailable [...] Care Provider Benson ANDRES, Ion Unavailable Christie Saenz NP Unavailable Joe Williamson RN Unavailable Saw ANDRES, Tessa Monae Unavailable Amber Deshpande Unavailable UnavailJimmie Bailey MD Unavailable Kate Castillo RN Unavailable Gonzalo HERNANDEZ, Christie Primary Care Provider Adrian Wallace DO Unavailable Mary Moss CNP Primary Care Provider Gonzalo TRAY FILLER-C, Christie Primary Care Provider Ankit Marsh MD Attending Provider Salma ANDRES, Ankit Emergency Provider Beam TRAY FILLER-C, Zebuluchico Primary Care Provider Stepan BATISTA, Dr. Humphrey Referring Provider Stepan BATISTA, Dr. Humphrey Emergency Provider Gonzalo TRAY FILLER, Christie Primary Care Provider Saw ANDRES, Tessa Monae Unavailable Zulema ANDRES, Jimmie Unavailable Kevin MANN, Shelby Unavailable Stepan BATISTA, Dr. Humphrey Attending Provider Luis ANDRES, Dr. Qamar Diaz Admit Provider Luis ANDRES, Dr. Qamar Diaz Attending Provider Tobin ANDRES, Dr. Tony Other Provider Luis ANDRES, Dr. Qamar Diaz Referring Provider [facility] CHRISTIE [facility] Unavailable PROVIDER, UNKNOWN Attending Unavailable PROVIDER, UNKNOWN Admitting Unavailable Beam TRAY FILLER-C, Zebulun Attending Provider Beam TRAY FILLER-C, Zebulun Referring Provider Salma ANDRES, Ankit Emergency Provider Adrian Wallace DO Unavailable Gonzalo TRAY FILLER, Christie Unavailable Teri RN, Jeo Unavailable Kevin MANN, Shelby Unavailable Ankit Marsh MD Attending Provider Edwar ANDRES, Dr. Teixeira Emergency Provider Unavailab evy Mendez MD, Dr. Bryant Admit Provider Andrea ANDRES, Dr. Bryant Attending Provider Andrea ANDRES, Dr. Bryant Other Provider Edd BATISTA, Dr. Kyle Attending Provider Beam TRAY FILLER-C, Zebulun Primary Care Provider Edd BATISTA, Dr. Kyle Other Provider Evy BATISTA, Dr. Vale Emergency Provider Magdalena ANDRES, Dr. Reich Other Provider Magdalena ANDRES, Dr. Reich Attending Provider Abrahan ANDRES, Dr. Tracy Emergency Provider NAFFOUJE, SAMER A Attending Unavailable NAFFOUJE, SAMER A Admitting Unavailable SWIWALET, MARY CATHERINE Primary Care Unavailable NAFFOUJE, SAMER [...] Attending Unavailable BONITA MCCRAY Consulting Unavailable Beam TRAY FILLER-C, Zebulun Primary Care Physician Luis ANDRES, Dr. Qamar Diaz Admitting Physician Luis ANDRES, Dr. Qamar Diaz Attending Physician Tobin ANDRES, Dr. Tony Nurse Practitioner Luis ANDRES, Dr. Qamar Diaz Referring Provider Beam TRAY FILLER-C, Zebulun Attending Physician Beam TRAY FILLER-C, Zebulun Referring Provider Salma ANDRES, Ankit Attending Physician Salma ANDRES, Ankit Emergency Department Physician Edwar ANDRES, Dr. Teixeira Emergency Department Physici an Unavailable Andrea ANDRES, Dr. Bryant Admitting Physician Andrea ANDRES, Dr. Bryant Nurse Practitioner Edd BATISTA, Dr. Kyle Attending Physician Edd BATISTA, Dr. Kyle Nurse Practitioner Evy BATISTA, Dr. Vale Attending Physician Evy BATISTA, Dr. Vale Emergency Department Physician Magdalena ANDRES, Dr. Reich Nurse Practitioner [phone] Magdalena ANDRES, Dr. Reich Attending Physician [phone] Abrahan ANDRES, Dr. Tracy Attending Physician Abrahan ANDRES, Dr. Tracy Emergency Department Physici an [facility] Dr. Turner Attending Physician [facility], Dr. Turner [facility] JAG LENZ Attending Unavailable GONZALO, CHRISTIE Primary Care Unavailable JIMMIE POOLE Referring Unavailable GONZALO, CHRISTIE Primary Care Unavailable JIMMIE POOLE Referring Unavailable GONZALO, CHRISTIE Primary Care Unavailable JIMMIE POOLE Attending Unavailable NAFFOKAMILLA, SAMER Attending Unavailable SWIHART, MARY CATHERINE Primary Care Unavailable JIMMIE POOLE Referring Unavailable SWIHART, MARY CATHERINE Primary Care Unavailable GONZALO, CHRISTIE Primary Care Unavailable JIMMIE POOLE Referring Unavailable GONZALO, CHRISTIE Primary Care Unavailable SAW, SAMER Attending Unavailable GONZALO, CHIRSTIE Primary Care Unavailable JIMMIE POOLE Attending Unavailable JIMMIE POOLE Referring Unavailable GONZALO, CHRISTIE Primary Care Unavailable GONZALO, CHRISTIE Primary Care Unavailable WALEPSTER, FE Attending Unavailable MICKTER, FE Referring Unavailable GONZALO, CHRISTIE Primary Care Unavailable NAFAMANDA, SAMER Referring Unavailable JIMMIE POOLE Referring Unavailable GONZALO, CHRISTIE Primary Care Unavailable JIMMIE POOLE Referring Unavailable GONZALO, CHRISTIE Primary Care Unavailable JIMMIE POOLE Referring Unavailable GONZALO, CHRISTIE Primary Care Unavailable ADRIENNE BAHENA Attending Unavailable GONZALO, CHRISTIE Primary Care Unavailable NAFAMANDA, PIEDADR Attending Unavailable GONZALO, CHRISTIE Primary Care Unavailable JIMMIE POOLE Referring Unavailable GONZALO, CHRISTIE Primary Care Unavailable JIMMIE POOLE Referring Unavailable JIMMIE POOLE Attending Unavailable GONZALO, CHRISTIE Primary Care Unavailable JIMMIE POOLE Referring Unavailable GONZALO, CHRISTIE Primary Care Unavailable GONZALO, CHRISTIE Primary Care Unavailable EDWARDO VALENCIA Attending JIMMIE Rodriguez Referring Unavailable GONZALO, CHRISTIE Primary Care Unavailable JIMMIE POOLE Referring Unavailable JIMMIE POOLE Attending Unavailable GONZALO, CHRISTIE Primary Care Unavailable GONZALO, CHRISTIE Primary Care Unavailable NAFFOUJE, PIEDADR Attending Unavailable GONZALO, CHRISTIE Primary Care Unavailable YUMIKO ALARCON Referring Unavailable GONZALO, CHRISTIE Primary Care Unavailable PAYTONFOKAMILLA, PIEDADR Referring Unavailable JIMMIE POOLE Referring Unavailable ADRIENNE BAHENA Attending Unavailable GONZALO, CHRISTIE Primary Care Unavailable NAFFOUJE, PIEDADR Referring Unavailable SWIHART, MARY CATHERINE Primary Care Unavailable SWIHART, MARY CATHERINE Primary Care Unavailable NAFFOKAMILLA, PIEDADR Referring Unavailable ADRIENNE BAHENA Attending Unavailable GONZALO, CHRISTIE Primary Care Unavailable JIMMIE POOLE Referring Unavailable GONZALO, CHRISTIE Primary Care Unavailable GOZNALO, CHRISTIE Primary Care Unavailable FE EDMOND Referring Unavailable GONZALO, CHRISTIE Primary Care Unavailable SWIHART, MARY CATHERINE Primary Care Unavailable ADRIENNE BAHENA Attending Unavailable GONZALO, CHRISTIE Primary Care Unavailable NAFFOUJE, PIEDADR Attending Unavailable NAFFOUJE, SAMER Referring Unavailable SWIHART, MARY CATHERINE Primary Care Unavailable JIMMIE POOLE Referring Unavailable [...] Unavailable GONZALO, CHRISTIE Primary Care Unavailable PAYTONFOKAMILLA, PIEDADR Attending Unavailable GONZALO, CHRISTIE Primary Care Unavailable JIMMIE POOLE Attending Unavailable JIMMIE POOLE Referring Unavailable GONZALO, CHRISTIE Primary Care Unavailable GONZALO, CHRISTIE Primary Care Unavailable JIMMIE POOLE Referring Unavailable KRISTI BARROSO Attending Unavailable GONZALO, CHRISTIE Primary Care Unavailable GONZALO, CHRISTIE Primary Care Unavailable JIMMIE POOLE Attending Unavailable GONZALO, CHRISTIE Primary Care Unavailable GONZALO, CHRISTIE Primary Care Unavailable JIMMIE POOLE Referring Unavailable JIMMIE POOLE Attending Unavailable GONZALO, CHRISTIE Primary Care Unavailable JIMMIE POOLE Referring Unavailable GONZALO, CHRISTIE Primary Care Unavailable TESSA SPRING Attending Unavailable GONZALO, CHRISTIE Primary Care Unavailable T[place]SA [place]ING Referring Unavailable JAG LENZ Attending Unavailable GONZALO, CHRISTIE Primary Care Unavailable ADRIENNE BAHENA Referring Unavailable GONZALO, CHRISTIE Primary Care Unavailable JIMMIE POOLE Referring Unavailable GONZALO, CHRISTIE Primary Care Unavailable JIMMIE POOLE Referring Unavailable ADRIENNE BAHENA Attending Unavailable GONZALO, CHRISTIE Primary Care Unavailable JIMMIE POOLE Referring Unavailable GONZALO, CHRISTIE Primary Care Unavailable SWIHART, MARY CATHERINE Primary Care Unavailable ROSAT, MARY CATHERINE Primary Care Unavailable JIMMIE POOLE Referring Unavailable GONZALO, CHRISTIE Primary Care Unavailable GONZALO, CHRISTIE Primary Care Unavailable JIMMIE POOLE Referring Unavailable GONZALO, CHRISTIE Primary Care Unavailable JIMMIE POOLE Referring Unavailable GONZALO, CHRISTIE Primary Care Unavailable Annette Mendez Attending Unavailable Beam VSC, [place]eb[place]un Primary Care Unavailable Saroj Puga Attending Unavailable Annette Mendez Consulting Unavailable Annette Mendez Admitting Unavailable Saroj Puga Consulting Unavailable Saroj Puga Attending Unavailable Annette Mendez Consulting Unavailable Annette Mendez Admitting Unavailable Beam VSC, [place] Primary Care Unavailable Rachana Nichols Attending Unavailable Rachana Nichols Consulting Unavailable Beam VSC, [place] Primary Care Unavailable Doni Caballero Attending Unavailable Doni Caballero Consulting Unavailable Doni Caballero Admitting Unavailable Beam VSC, [place]ebulun Primary Care Unavailable Saroj Puga Consulting Unavailable Doni Smith Attending Unavailable Doni Smith Consulting Unavailable Beam VSC, Zebulun Primary Care Unavailable Beam VSC, Zebulun Referring Unavailable Beam VSC, Zebulun Attending Unavailable Luis, Qamar Chi Attending Unavailable Beam VSC, [place] Primary Care Unavailable Luis, Qamar Chi Referring Unavailable Gonzalo VSC, Christie Attending Unavailabl e Gonzalo VSC, Christie Primary Care Unavailabl e Luis, Qamar Chi Attending Unavailable Luis Qamar Chi Admitting Unavailable Cecily Rudd Consulting Unavailable Beam VSC, [facility] Primary Care Unavailable Gonzalo [facility], Christie Primary Care Unavailabl e Ankit Marsh Attending Unavailable Beam VS, [facility] Primary Care Unavailable Ungur, Remus Referring Unavailable Stepan, Remus Attending Unavailable Doni Caballero Consulting Unavailable Doni Caballero Admitting Unavailable Beam VSC, [facility] Primary Care Unavailable Doni Smith Attending Unavailable Saroj Puga Consulting Unavailable Rachana Nichols Consulting Unavailable Beam [facility], [facility] Primary [facility] Unavailable Kavin Adams Attending Unavailable Beam VSC, [facility] Primary Care Unavailable Demarcus Gauthier Attending Unavailable Johnny Colunga Attending Unavailabl e Beam VSC, [facility] Primary Care Unavailable Ankit Marsh Attending Unavailable Beam VS, [facility] Primary Care Unavailable Allergies Allergy Classification Reported Allergen(s) Allergy Type Date of Onset Reaction(s) Facility Macrolides (antibiotic) (4 sources) Azithromycin Drug Allergy 7 Unknown [facility] Work Phone: (2 sources) erythromycin drug allergy 7 [facility] Work Phone: (20 sources) Azithromycin; Translations: [AZITHROMYCIN] Drug Allergy 9 Unknown [facility] Work Phone: (20 sources) Erythromycin; Translations: [ERYTHROMYCIN] Drug Allergy 7 Unknown, Other, Intolerance [facility] (1 source) erythromycin base Drug allergy (disorder) 5 [facility] Medications Current Medications Medication Drug Class(es) [...] Start: 10-16-2023 take 1 tablet by miguel th once daily Buspirone 7.5 mg tablet Active [...] Active 1 TABLET PO TWICE A DAY 14 August 15, 2022 11:00pm ascorbic acid 500 [...] 10 mg, INTRAVENOUS, ONCE, 1 dose, On Mon11/19/24 at 1000, Administer IV doses up to [...] 10-25-2019 docusate sodium 50 mg / sennosides, halfway 8.6 mg oral tablet (20 sources) Start: [...] KORIN ALLERGY 180 MG TABS FEXOFENADINE HCL [id number] Cecily Rudd MD Start: 12-21-2016 KORIN ALLERG Y 180 MG TABS FEXOFENADINE HCL [id number] Cecily Rudd MD fluconazole 200 mg oral [...] mouth three times a day with meals. 84243 mL 09/27/2023 07/15/2024 Discontinued Start: 09-27-2023 take 237 mL by mouth three times daily at mealtime Food Supplement, Lactose-Free (ENSURE ACTIVE HIGH PROTEIN) liqd Take 237 mL by mouth three times a day with meals. 87439 mL 09/27/2023 Active Start: 09-27-2023 take 237 mL by mouth three times daily at mealtime Food Supplement, Lactose-Free (ENSURE ACTIVE HIGH PROTEIN) liqd Take 237 mL by mouth three times a day with meals. 41203 mL 0 09/27/2023 Active Start: 09-27-2023 End: 10-27-2023 take 237 mL by mouth three times daily at mealtime Food Supplement, Lactose-Free (ENSURE ACTIVE HIGH PROTEIN) liqd Take 237 mL by mouth three times a day with meals. 58128 mL 0 09/27/2023 10/27/2023 Active Food Supplement, [...] a day. 2 times daily between meals 29867 mL 09/27/2023 07/15/2024 Discontinued Start: 09-27-2023 Food Supplemen t, Lactose-Free (ENSURE HIGH PROTEIN) liqd Take 237 mL by mouth two times a day. 2 times daily between meals 81960 mL 09/27/2023 Active Start: 09-27-2023 Food Supplemen t, Lactose-Free (ENSURE HIGH PROTEIN) liqd Take 237 mL by mouth two times a day. 2 times daily between meals 86570 mL 0 09/27/2023 Active Start: 09-27-2023 End: 10-27-2023 Food Supplement, Lactose-Reji e (ENSURE HIGH PROTEIN) liqd Take 237 mL by mouth two times a day. 2 times daily between meals 13576 mL 0 09/27/2023 10/27/2023 Active Food Supplement, [...] times a day with meals. 1000 mL 02/01/2024 02/01/2024 Discontinued Start: 02-01-2024 take 237 [...] 12-21-2016 DAILY MULTIVIT RAMIREZ CAPS MULTIPLE VITAMINS-MINERALS [id number] Cecily Rudd MD MULTIPLE VITAMINS-MINERALS (1 source) Start: 12-21-2016 DAILY MULTIVIT RAMIREZ CAPS MULTIPLE VITAMINS-MINERALS [id number] Cecily Rudd MD naloxone hydrochloride 40 mg/ml [...] 8:39pm Start: 02-16-2024 take 1 tablet by [facility] twice daily as needed for nausea ondansetron [...] tablet 01/10/2024 01/17/2024 Active oxaliplatin (3 sources) [place] Start: 12-02-2024 End: 12-02-2024 80.4 mg [...] Start: 09-27-2023 End: 09-12-2024 polyethylene glycol 3350 31174 mg powder for oral solution (20 sources) [...] End: 09-12-2024 take 1 tablet by miguel th twice [...] 10 MEQ (1080 MG) CR-TABS POTASSIUM CITRATE [id number] Cecily Rudd MD Sennosides (Senna) 8.6 mg [...] A DAY October 18, 2023 12:00am sennosides, halfway 8.6 mg oral tablet (20 sources) Start: [...] over 1 Hours, ONCE, 1 dose, On [facility] 11/07/24 at 0930 sulfamethoxazole 800 mg / [...] pain; Translations: [Right lower quadrant pain] Onset: 4 03-07-2024 Episodic Acute myocardial infarction (20 sources) Myocardial infarction; Translations: [ST elevation (STEMI) myocardial infarction of unspecified site] Onset: 5 11-21-2024 Chronic Alcohol-related disorders (15 sources) Alcohol [...] sources) Anemia; Translations: [Anemia, unspecified] 08-31-2023 Episodic Diabetes mellitus without complication (2 sources) Impaired fasting glucose; Translations: [Hyperglycemia, unspecified] Onset: 5 Episodic E Codes: Adverse effects of medical drugs (3 sources) Adverse effect of antineoplastic and immunosuppressive drugs, initial encounter; Translations: [Adverse effect of other opioids, initial encounter] Onset: 5 Episodic E Codes: Fall (15 sources) Fall; [...] with vomiting, unspecified] Onset: 5 01-10-2024 Episodic Noninfectious gastroenteritis (20 sources) Non-specific colitis; Translations: [Noninfective gastroenteritis and colitis, unspecified] Onset: 4 09-13-2023 Episodic Nonspecific chest pain (5 sources) Chest [...] circulatory system] Onset: 5 11-22-2024 Episodic Other circulatory disease (1 source) Hypotension, unspecified; Translations: [Hypotension, unspecified] Onset: Episodic Other connective tissue disease (2 sources) [...] Episodic Other infections; including parasitic (1 source) Personal history of other infectious and parasitic diseases; Translations: [Personal history of other infectious and parasitic diseases] Onset: Episodic Other lower respiratory disease (3 sources) [...] Translations: [Abnormal weight loss] 06-25-2024 Episodic Other nutritional; endocrine; and metabolic disorders (1 source) Abnormal weight loss; Translations: [Weight loss] Onset: Episodic Other screening for suspected conditions (not mental disorders or infectious disease) (2 sources) Full blood count abnormal; Translations: [Other specified abnormal findings of blood chemistry] Episodic Other upper respiratory disease (2 sources) Seasonal allergy; Translations: [Other seasonal allergic rhinitis] Onset: 7 12-21-2016 Chronic Peritonitis and intestinal abscess (3 sources) Abdominal abscess; Translations: [Peritoneal abscess] 10-11-2023 Episodic Pneumonia (except that caused by tuberculosis or sexually transmitted disease) (2 sources) Pneumonia, unspecified organism; Translations: [Pneumonia, unspecified organism] Onset: Episodic Poisoning by other medications and drugs [...] Onset: 5 Chronic Septicemia (except in labor) (11 [...] iron deficiency anemia type] Onset: 02-01-2019 Episodic Epilepsy; convulsions (20 sources) Seizure; Translations: [Unspecified convulsions] Onset: 09-08-2023 09-13-2023 Episodic Headache; including migraine (20 sources) Migraine without aura; Translations: [Migraine without aura, not intractable, without status migrainosus] Onset: 05-03-2019 Resolved: 12-28-2023 05-03-2019 Chronic Intestinal obstruction without hernia (20 sources) Intestinal obstruction; Translations: [Unspecified intestinal obstruction, unspecified as to partial versus complete obstruction] Onset: 09-19-2023 Resolved: 09-25-2023 09-19-2023 Episodic Other aftercare (20 sources) Patient encounter status; Translations: [Encounter for therapeutic drug level monitoring] Onset: 09-19-2023 Resolved: 09-25-2023 09-19-2023 Episodic Other aftercare (20 sources) Under care of palliative care physician; Translations: [Encounter for palliative care] Onset: 08-20-2024 08-20-2024 Episodic Other aftercare (1 source) Encounter for palliative care; Translations: [Palliative care by specialist] Onset: 08-20-2024 Episodic Other aftercare (1 source) Aftercare following surgery for neoplasm; Translations: [Aftercare following surgery for neoplasm] Onset: 09-17-2024 Episodic Other connective tissue disease (20 sources) [...] Translations: [Lung nodules] Onset: 05-03-2024 Episodic Other nervous system disorders (20 sources) [...] Translations: [BMI < 18.5] Onset: 08-14-2024 Episodic Residual codes; unclassified (20 sources) Current [...] Test Name Value Interpretation Reference Range [facility] 01-29-2025 CNPN Normal [facility] CBC W Auto Differential pane l (Bld)on 01-28-2025 Basophils (Bld) [#/Vol] 0.09 10*3/uL Normal <0.11 [facility] Comment on above: Order Comment: Speci men Type: BLOOD SPECIMENOrdering Facility: [facility] Address: [address] [place] [address] Performed By: #### 5 7021-8 ####[facility] [id number] [place] [address] [place] Basophils/100 WBC (Bld) 1.2 % Normal [facility] Comment on above: Order Comment: Speci men Type: BLOOD SPECIMENOrdering Facility: [facility] Address: [address] [place] [address] Performed By: #### 5 7021-8 ####[facility] BISHNUWINSTON SALEMNCLIA [id number] [place] [address] [place] Differential cell count method Nom (Bld) Auto Normal [facility] Comment on above: Order Comment: Speci men Type: BLOOD SPECIMENOrdering Facility: [facility] Address: [address] [place] [address] Performed By: #### 5 7021-8 ####[facility] [id number] [place] [address] [place] Eosinophils (Bld) [#/Vol] 0.28 10*3/uL Normal <0.46 [facility] Comment on above: Order Comment: Speci men Type: BLOOD SPECIMENOrdering Facility: [facility] Address: [address] [place] [address] Performed By: #### 5 7021-8 ####[facility] [id number] [place] [address] [place] Eosinophils/100 WBC (Bld) 3.6 % Normal [facility] Comment on above: Order Comment: Speci men Type: BLOOD SPECIMENOrdering Facility: [facility] Address: [address] [place] [address] Performed By: #### 5 7021-8 ####[facility]ITALNCM[facility] [id number] [place] [address] [place] Erythrocyte distribution width (RBC) [Ratio] 17.7 % High 11.5-15.0 [facility] Comment on above: Order Comment: Speci men Type: BLOOD SPECIMENOrdering Facility: [facility] Address: [address] [place] [address] Performed By: #### 5 7021-8 ####[facility]ITALNCL[facility] [id number] [place] [address] [place] Hematocrit (Bld) [Volume fraction] 30.4 % Low 36.0-46.0 [facility] Comment on above: Order Comment: Speci men Type: BLOOD SPECIMENOrdering Facility: [facility] Address: [address] [place] [address] Performed By: #### 5 7021-8 ####[facility]ITALN[facility] [id number] [place] [address] [place] Hemoglobin (Bld) [Mass/Vol] 9.6 g/dL Low 11.5-15.5 [facility] Comment on above: Order Comment: Speci men Type: BLOOD SPECIMENOrdering Facility: [facility] Address: [address] [place] [address] Performed By: #### 5 7021-8 ####[facility] [id number] [place] [address] [place] Immature granulocytes (Bld) [#/Vol] 0.04 10*3/uL Normal <0.10 [facility] Comment on above: Order Comment: Speci men Type: BLOOD SPECIMENOrdering Facility: [facility] Address: [address] [place] [address] Performed By: #### 5 7021-8 ####[facility] [id number] [place] [address] [place] Immature granulocytes/100 WBC (Bld) 0.5 % Normal [facility] Comment on above: Order Comment: Speci men Type: BLOOD SPECIMENOrdering Facility: [facility] Address: [address] [place] [address] Performed By: #### 5 7021-8 ####[facility] [id number] [place] [address] [place] Lymphocytes (Bld) [#/Vol] 2.05 10*3/uL Normal 1.00-4.00 [facility] Comment on above: Order Comment: Speci men Type: BLOOD SPECIMENOrdering Facility: [facility] Address: [address] [place] [address] Performed By: #### 5 7021-8 ####[facility]PITALFUAD [id number] [place] [address] [place] Lymphocytes/100 WBC (Bld) 26.6 % Normal [facility] Comment on above: Order Comment: Speci men Type: BLOOD SPECIMENOrdering Facility: [facility] Address: [address] [place] [address] Performed By: #### 5 7021-8 ####[facility]ITALNCM[facility] [id number] [place] [address] [place] MCH (RBC) [Entitic mass] 27.4 pg Normal 26.0-34.0 [facility] Comment on above: Order Comment: Speci men Type: BLOOD SPECIMENOrdering Facility: [facility] Address: [address] [place] [address] Performed By: #### 5 7021-8 ####[facility] [id number] [place] [address] [place] MCHC (RBC) [Mass/Vol] 31.6 g/dL Normal 30.5-36.0 [facility] Comment on above: Order Comment: Speci men Type: BLOOD SPECIMENOrdering Facility: [facility] Address: [address] [place] [address] Performed By: #### 5 7021-8 ####[facility]ITALNCLIA [id number] [place] [address] [place] MCV (RBC) [Entitic vol] 86.6 fL Normal 80.0-100.0 [facility] Comment on above: Order Comment: Speci men Type: BLOOD SPECIMENOrdering Facility: [facility] Address: [address] [place] [address] Performed By: #### 5 7021-8 ####[facility] HOSPITALWNCLIA [id number] [place] [address] [place] Monocytes (Bld) [#/Vol] 0.72 10*3/uL Normal <0.87 [facility] Comment on above: Order Comment: Speci men Type: BLOOD SPECIMENOrdering Facility: [facility] Address: [address] [place] [address] Performed By: #### 5 7021-8 ####[facility]ITALL[facility] [id number] [place] [address] [place] Monocytes/100 WBC (Bld) 9.3 % Normal [facility] Comment on above: Order Comment: Speci men Type: BLOOD SPECIMENOrdering Facility: [facility] Address: [address] [place] [address] Performed By: #### 5 7021-8 ####[facility]ITALA [id number] [place] [address] [place] Neutrophils (Bld) [#/Vol] 4.54 10*3/uL Normal 1.45-7.50 [facility] Comment on above: Order Comment: Speci men Type: BLOOD SPECIMENOrdering Facility: [facility] Address: [address] [place] [address] Performed By: #### 5 7021-8 ####[facility]PITALLIA [id number] [place] [address] [place] Neutrophils/100 WBC (Bld) 58.8 % Normal [facility] Comment on above: Order Comment: Speci men Type: BLOOD SPECIMENOrdering Facility: [facility] Address: [address] [place] [address] Performed By: #### 5 7021-8 ####[facility]ITALL[facility] [id number] [place] [address] [place] Nucleated RBC (Bld) [#/Vol] 10*3/uL Normal <0.01 [facility] Comment on above: Order Comment: Speci men Type: BLOOD SPECIMENOrdering Facility: [facility] Address: [address] [place] [address] Performed By: #### 5 7021-8 ####[facility] [id number] [place] [address] [place] Nucleated RBC/100 WBC (Bld) [Ratio] 0.0 /100 WBC Normal [facility] Comment on above: Order Comment: Speci men Type: BLOOD SPECIMENOrdering Facility: [facility] Address: [address] [place] [address] Performed By: #### 5 7021-8 ####[facility] [id number] [place] [address] [place] Platelet mean volume (Bld) [Entitic vol] 9.0 fL Normal 9.0-12.7 [facility] Comment on above: Order Comment: Speci men Type: BLOOD SPECIMENOrdering Facility: [facility] Address: [address] [place] [address] Performed By: #### 5 7021-8 ####[facility] [id number] [place] [address] [place] Platelets (Bld) [#/Vol] 425 10*3/uL High 150-400 [facility] Comment on above: Order Comment: Speci men Type: BLOOD SPECIMENOrdering Facility: [facility] Address: [address] [place] [address] Performed By: #### 5 7021-8 ####[facility] [id number] [place] [address] [place] RBC (Bld) [#/Vol] 3.51 10*6/uL Low 3.90-5.20 [facility] Comment on above: Order Comment: Speci men Type: BLOOD SPECIMENOrdering Facility: [facility] Address: [address] [place] [address] Performed By: #### 5 7021-8 ####[facility]OSPITALKALIEMOUNTAINSTAR HEALTHCARE [id number] [place] [address] [place] WBC (Bld) [#/Vol] 7.72 10*3/uL Normal 3.70-11.00 [facility] Comment on above: Order Comment: Speci men Type: BLOOD SPECIMENOrdering Facility: [facility] Address: [address] [place] [address] Performed By: #### 5 7021-8 ####[facility] HOSPITALNCMOUNTAINSTAR HEALTHCARE [id number] [place] [address] [place] CNOVSPon 01-28-2025 CNOVSP Normal [facility] CNPNon 01-28-2025 CNPN Normal [facility] Comprehensive metabolic 2000 panelon 01-28-2025 Albumin [Mass/Vol] 3.0 g/dL Low 3.9-4.9 [facility] Comment on above: Order Comment: Speci men Type: BLOOD SPECIMENOrdering Facility: [facility] Address: [address] [place] [address] Performed By: #### 2 4323-8 ####[facility] HOSPITALNCLIA [id number] [place] [address] [place] ALP [Catalytic activity/Vol] 99 U/L Normal 34-123 [facility] Comment on above: Order Comment: Speci men Type: BLOOD SPECIMENOrdering Facility: [facility] Address: [address] [place] [address] Performed By: #### 2 4323-8 ####[facility] HOSPITALNCLIA [id number] [place] [address] [place] ALT [Catalytic activity/Vol] U/L Low 7-38 [facility] Comment on above: Order Comment: Speci men Type: BLOOD SPECIMENOrdering Facility: [facility] Address: [address] [place] [address] Performed By: #### 2 4323-8 ####[facility] MILLTOWNCLIA [id number] [place] [address] [place] Anion gap [Moles/Vol] 9 mmol/L Normal 8-15 [facility] Comment on above: Order Comment: Speci men Type: BLOOD SPECIMENOrdering Facility: [facility] Address: [address] [place] [address] Performed By: #### 2 4323-8 ####[facility] ERWNCLIA [id number] [place] [address] [place] AST [Catalytic activity/Vol] 15 U/L Normal 13-35 [facility] Comment on above: Order Comment: Speci men Type: BLOOD SPECIMENOrdering Facility: [facility] Address: [address] [place] [address] Performed By: #### 2 4323-8 ####[facility] ERWNCLIA [id number] [place] [address] [place] Bilirubin [Mass/Vol] 0.2 mg/dL Normal 0.2-1.3 [facility] Comment on above: Order Comment: Speci men Type: BLOOD SPECIMENOrdering Facility: [facility] Address: [address] [place] [address] Performed By: #### 2 4323-8 ####[facility] MILLWNCLIA [id number] [place] [address] [place] Calcium [Mass/Vol] 8.3 mg/dL Low 8.5-10.2 [facility] Comment on above: Order Comment: Speci men Type: BLOOD SPECIMENOrdering Facility: [facility] Address: [address] [place] [address] Performed By: #### 2 4323-8 ####[facility] HOSPITALNCLIA [id number] [place] [address] [place] Chloride [Moles/Vol] 104 mmol/L Normal 98-107 [facility] Comment on above: Order Comment: Speci men Type: BLOOD SPECIMENOrdering Facility: [facility] Address: [address] [place] [address] Performed By: #### 2 4323-8 ####[facility] BISHNUBHC VALLE VISTA HOSPITALLIA [id number] [place] [address] [place] CO2 [Moles/Vol] 23 mmol/L Normal 22-30 [facility] Comment on above: Order Comment: Speci men Type: BLOOD SPECIMENOrdering Facility: [facility] Address: [address] [place] [address] Performed By: #### 2 4323-8 ####[facility]ITALA [id number] [place] [address] [place] Creatinine [Mass/Vol] 0.44 mg/dL Low 0.58-0.96 [facility] Comment on above: Order Comment: Speci men Type: BLOOD SPECIMENOrdering Facility: [facility] Address: [address] [place] [address] Performed By: #### 2 4323-8 ####[facility]ALL[facility] [id number] [place] [address] [place] eGFRcr SerPlBld CKD-EPI 2020 107 mL/min/1.73m??? Normal >=60 [facility] Comment on above: Order Comment: Speci men Type: BLOOD SPECIMENOrdering Facility: [facility] Address: [address] [place] [address] Result Comment: Sana mated Glomerular Filtration Rate [...] actual GFR. Performed By: #### 2 4323-8 ####[facility] HOSPITALNCA [id number] [place] [address] [place] Glucose [Mass/Vol] 106 mg/dL High 74-99 [facility] Comment on above: Order Comment: Speci men Type: BLOOD SPECIMENOrdering Facility: [facility] Address: [address] [place] [address] Result Comment: The [place] [employer] (ADA) provides guidance for cutoff [...] Standards of Medical Care in Diabetes 2016, [place] [employer]. Diabetes Care. 2016.39(Suppl 1). Performed By: #### 2 4323-8 ####[facility] HOSPITALNCLIA [id number] [place] [address] [place] Potassium [Moles/Vol] 3.6 mmol/L Low 3.7-5.1 [facility] Comment on above: Order Comment: Umesh baugh Type: BLOOD SPECIMENOrdering Facility: [facility] Address: [address] [place] [address] Performed By: #### 2 4323-8 ####[facility]ITALA [id number] [place] [address] [place] Protein [Mass/Vol] 5.5 g/dL Low 6.3-8.0 [facility] Comment on above: Order Comment: Umesh baugh Type: BLOOD SPECIMENOrdering Facility: [facility] Address: [address] [place], [place] [id number] Performed By: #### 2 4323-8 ####[facility] MILLJUSTINWNCLIA [id number] [place] [address] [place] Sodium [Moles/Vol] 136 mmol/L Normal 136-144 [facility] Comment on above: Order Comment: Speci men Type: BLOOD SPECIMENOrdering Facility: [facility] Address: [address] [place] [address] Performed By: #### 2 4323-8 ####[facility] LALYWNCLIA [id number] [place] [address] [place] Urea nitrogen [Mass/Vol] 7 mg/dL Normal 7-21 [facility] Comment on above: Order Comment: Speci men Type: BLOOD SPECIMENOrdering Facility: [facility] Address: [address] [place] [address] Performed By: #### 2 4323-8 ####[facility]STIAN RUFFINWNCLIA [id number] [place] [address] [place] Basic Metabolic Profile (BMP )on 01-23-2025 BUN Normal 4-19 [facility] Comment on above: Result Comment: Canc elled via OM: Order cancelled - Patient discharged Performed By: #### L 100.0100, L500.2500 ####[facility] [address] [place] [address] BUN/CRE Normal 10-20 [facility] Comment on above: Result Comment: Canc elled via OM: Order cancelled - Patient discharged Performed By: #### L 100.0100, L500.2500 ####[facility] [address] [facility] [address] Calcium Normal 7.6-11.0 [facility] Comment on above: Result Comment: Canc elled via OM: Order cancelled - Patient discharged Performed By: #### L 100.0100, L500.2500 ####[facility] [address] [place], [address] CL Normal 98-108 [facility] Comment on above: Result Comment: Canc elled via OM: Order cancelled - Patient discharged Performed By: #### L 100.0100, L500.2500 ####[facility] [address] [place], [address] CO2 Normal 21.0-32.0 [facility] Comment on above: Result Comment: Canc elled via OM: Order cancelled - Patient discharged Performed By: #### L 100.0100, L500.2500 ####[facility] [address] [place], [address] CREAT,SERUM Normal 0.70-1.20 [facility] Comment on above: Result Comment: Canc elled via OM: Order cancelled - Patient discharged Performed By: #### L 100.0100, L500.2500 ####[facility] [address] [place], [address] eGFR Normal >60 [facility] Comment on above: Result Comment: Canc elled via OM: Order cancelled - Patient discharged Performed By: #### L 100.0100, L500.2500 ####[facility] [address] [place], [address] GAP Normal 5-15 [facility] Comment on above: Result Comment: Canc elled via OM: Order cancelled - Patient discharged Performed By: #### L 100.0100, L500.2500 ####[facility] [address] [place], [address] GLU Normal 70-99 [facility] Comment on above: Result Comment: Canc elled via OM: Order cancelled - Patient discharged Performed By: #### L 100.0100, L500.2500 ####[facility] [address] [place], [address] Potassium Normal 3.3-5.1 [facility] Comment on above: Result Comment: Canc elled via OM: Order cancelled - Patient discharged Performed By: #### L 100.0100, L500.2500 ####[facility] [address] [place], [address] Basic Metabolic Profile (BMP) Normal 133-145 [facility] Comment on above: Result Comment: Canc elled via OM: Order cancelled - Patient discharged Performed By: #### L 100.0100, L500.2500 ####[facility] [address] [place], [address] CBC W/Diff, Automatedon 10-3 0-2024 Absolute Neut Normal 2.0-7.7 [facility] Comment on above: Result Comment: Canc elled via OM: Order cancelled - Patient discharged Performed By: #### L 100.0100, L500.2500 ####[facility] [address] [place], [address] HCT Normal 37-47 [facility] Comment on above: Result Comment: Canc elled via OM: Order cancelled - Patient discharged Performed By: #### L 100.0100, L500.2500 ####[facility] [address] [place], [address] HGB Normal 12.0-15.0 [facility] Comment on above: Result Comment: Canc elled via OM: Order cancelled - Patient discharged Performed By: #### L 100.0100, L500.2500 ####[facility] [address] [place], [address] MCH Normal 27.0-32.0 [facility] Comment on above: Result Comment: Canc elled via OM: Order cancelled - Patient discharged Performed By: #### L 100.0100, L500.2500 ####[facility] [address] [place], [address] MCHC Normal 32-36 [facility] Comment on above: Result Comment: Canc elled via OM: Order cancelled - Patient discharged Performed By: #### L 100.0100, L500.2500 ####[facility] [address] [place], [address] MCV Normal 81-99 [facility] Comment on above: Result Comment: Canc elled via OM: Order cancelled - Patient discharged Performed By: #### L 100.0100, L500.2500 ####[facility] [address] [place], [address] NEUT% Normal 47-70 [facility] Comment on above: Result Comment: Canc elled via OM: Order cancelled - Patient discharged Performed By: #### L 100.0100, L500.2500 ####[facility] [address] [place], [address] PLT Normal 150-450 [facility] Comment on above: Result Comment: Canc elled via OM: Order cancelled - Patient discharged Performed By: #### L 100.0100, L500.2500 ####[facility] [address] [place], [address] RBC Normal 4.2-5.4 [facility] Comment on above: Result Comment: Canc elled via OM: Order cancelled - Patient discharged Performed By: #### L 100.0100, L500.2500 ####[facility] [address] [place], [address] RDW CV Normal 11.6-14.6 [facility] Comment on above: Result Comment: Canc elled via OM: Order cancelled - Patient discharged Performed By: #### L 100.0100, L500.2500 ####[facility] [address] [place], [address] RDW SD Normal 35.1-43.9 [facility] Comment on above: Result Comment: Canc elled via OM: Order cancelled - Patient discharged Performed By: #### L 100.0100, L500.2500 ####[facility] [address] [place], [address] WBC Normal 4.4-11.0 [facility] Comment on above: Result Comment: Canc elled via OM: Order cancelled - Patient discharged Performed By: #### L 100.0100, L500.2500 ####[facility] [address] [place], [address] Basic Metabolic Profile (BMP )on 01-22-2025 BUN Normal -19 [facility] Comment on above: Result Comment: Canc elled via OM: Order cancelled - Patient discharged Performed By: #### L 100.0100, L500.2500 ####[facility] [address] [place], [address] BUN/CRE Normal - [facility] Comment on above: Result Comment: Canc elled via OM: Order cancelled - Patient discharged Performed By: #### L 100.0100, L500.2500 ####[facility] [address] [place], [address] Calcium Normal 7.6-11.0 [facility] Comment on above: Result Comment: Canc elled via OM: Order cancelled - Patient discharged Performed By: #### L 100.0100, L500.2500 ####[facility] [address] [place], [address] CL Normal 98-108 [facility] Comment on above: Result Comment: Canc elled via OM: Order cancelled - Patient discharged Performed By: #### L 100.0100, L500.2500 ####[facility] [address] [place], [address] CO2 Normal 21.0-32.0 [facility] Comment on above: Result Comment: Canc elled via OM: Order cancelled - Patient discharged Performed By: #### L 100.0100, L500.2500 ####[facility] [address] [place], [address] CREAT,SERUM Normal 0.70-1.20 [facility] Comment on above: Result Comment: Canc elled via OM: Order cancelled - Patient discharged Performed By: #### L 100.0100, L500.2500 ####[facility] [address] [place], [address] eGFR Normal >60 [facility] Comment on above: Result Comment: Canc elled via OM: Order cancelled - Patient discharged Performed By: #### L 100.0100, L500.2500 ####[facility] [address] [place], [address] GAP Normal 5-15 [facility] Comment on above: Result Comment: Canc elled via OM: Order cancelled - Patient discharged Performed By: #### L 100.0100, L500.2500 ####[facility] [address] [place], [address] GLU Normal 70-99 [facility] Comment on above: Result Comment: Canc elled via OM: Order cancelled - Patient discharged Performed By: #### L 100.0100, L500.2500 ####[facility] [address] [place], [address] Potassium Normal 3.3-5.1 [facility] Comment on above: Result Comment: Canc elled via OM: Order cancelled - Patient discharged Performed By: #### L 100.0100, L500.2500 ####[facility] [address] [place], [address] Basic Metabolic Profile (BMP) Normal 133-145 [facility] Comment on above: Result Comment: Canc elled via OM: Order cancelled - Patient discharged Performed By: #### L 100.0100, L500.2500 ####[facility] [address] [place], [address] CBC W/Diff, Automatedon 10-2 Absolute Neut Normal 2.0-7.7 [facility] Comment on above: Result Comment: Canc elled via OM: Order cancelled - Patient discharged Performed By: #### L 100.0100, L500.2500 ####[facility] [address] [place], [address] HCT Normal 37-47 [facility] Comment on above: Result Comment: Canc elled via OM: Order cancelled - Patient discharged Performed By: #### L 100.0100, L500.2500 ####[facility] [address] [place], [address] HGB Normal 12.0-15.0 [facility] Comment on above: Result Comment: Canc elled via OM: Order cancelled - Patient discharged Performed By: #### L 100.0100, L500.2500 ####[facility] [address] [place], [address] MCH Normal 27.0-32.0 [facility] Comment on above: Result Comment: Canc elled via OM: Order cancelled - Patient discharged Performed By: #### L 100.0100, L500.2500 ####[facility] [address] [place], [address] MCHC Normal 32-36 [facility] Comment on above: Result Comment: Canc elled via OM: Order cancelled - Patient discharged Performed By: #### L 100.0100, L500.2500 ####[facility] [address] [place], [address] MCV Normal 81-99 [facility] Comment on above: Result Comment: Canc elled via OM: Order cancelled - Patient discharged Performed By: #### L 100.0100, L500.2500 ####[facility] [address] [place], [address] NEUT% Normal 47-70 [facility] Comment on above: Result Comment: Canc elled via OM: Order cancelled - Patient discharged Performed By: #### L 100.0100, L500.2500 ####[facility] [address] [place], [address] PLT Normal 150-450 [facility] Comment on above: Result Comment: Canc elled via OM: Order cancelled - Patient discharged Performed By: #### L 100.0100, L500.2500 ####[facility] [address] [place], [address] RBC Normal 4.2-5.4 [facility] Comment on above: Result Comment: Canc elled via OM: Order cancelled - Patient discharged Performed By: #### L 100.0100, L500.2500 ####[facility] [address] [place], [address] RDW CV Normal 11.6-14.6 [facility] Comment on above: Result Comment: Canc elled via OM: Order cancelled - Patient discharged Performed By: #### L 100.0100, L500.2500 ####[facility] [address] [place], [address] RDW SD Normal 35.1-43.9 [facility] Comment on above: Result Comment: Canc elled via OM: Order cancelled - Patient discharged Performed By: #### L 100.0100, L500.2500 ####[facility] [address] [place], [address] WBC Normal 4.4-11.0 [facility] Comment on above: Result Comment: Canc elled via OM: Order cancelled - Patient discharged Performed By: #### L 100.0100, L500.2500 ####[facility] [address] [place], [address] Basic Metabolic Profile (BMP )on 01-21-2025 BUN/CRE 14.2 RATIO Normal 10-20 [facility] Comment on above: Performed By: #### L 501.2300, L500.2500, L100.0100, L501.5200 ####[facility] [address] [place], [address] Calcium [Mass/Vol] 7.9 mg/dL Normal 7.6-11.0 [facility] Comment on above: Performed By: #### L 501.2300, L500.2500, L100.0100, L501.5200 ####[facility] [address] [place], [address] Chloride [Moles/Vol] 107 mmol/L Normal 98-108 [facility] Comment on above: Performed By: #### L 501.2300, L500.2500, L100.0100, L501.5200 ####[facility] [address] [place], [address] CO2 [Moles/Vol] 22.2 mmol/L Normal 21.0-32.0 [facility] Comment on above: Performed By: #### L 501.2300, L500.2500, L100.0100, L501.5200 ####[facility] [address] [place], [address] Creatinine [Mass/Vol] 0.49 mg/dL Low 0.70-1.20 [facility] Comment on above: Performed By: #### L 501.2300, L500.2500, L100.0100, L501.5200 ####[facility] [address] [place], [address] ECRCL 41.50 ml/min Low 50-250 [facility] Comment on above: Performed By: #### L 501.2300, L500.2500, L100.0100, L501.5200 ####[facility] [address] [place], [address] GAP 8 Normal 5-15 [facility] Comment on above: Performed By: #### L 501.2300, L500.2500, L100.0100, L501.5200 ####[facility] [address] [place], [address] GFR/1.73 sq M.predicted among non-blacks MDRD (S/P/Bld) [Vol rate/Area] 105 mL/min/{1.73_m2} Normal >60 [facility] Comment on above: Result Comment: mL/m in/1.73m2 CKD-EPI Creatinine Equation (2020) Performed By: #### L 501.2300, L500.2500, L100.0100, L501.5200 ####[facility] [address] [place], [address] Glucose [Mass/Vol] 97 mg/dL Normal 70-99 [facility] Comment on above: Performed By: #### L 501.2300, L500.2500, L100.0100, L501.5200 ####[facility] [address] [place], [address] Potassium [Moles/Vol] 2.9 mmol/L Low 3.3-5.1 [facility] Comment on above: Performed By: #### L 501.2300, L500.2500, L100.0100, L501.5200 ####[facility] [address] [place], [address] Sodium [Moles/Vol] 138 mmol/L Normal 133-145 [facility] Comment on above: Performed By: #### L 501.2300, L500.2500, L100.0100, L501.5200 ####[facility] [address] [place], [address] Urea nitrogen [Mass/Vol] 7 mg/dL Normal 4-19 [facility] Comment on above: Performed By: #### L 501.2300, L500.2500, L100.0100, L501.5200 ####[facility] [address] [place], [address] CBC W/Diff, Automatedon 10-2 Absolute Lymph 0.65 X10 3/uL Low 0.83-4.51 [facility] Comment on above: Performed By: #### L 501.2300, L500.2500, L100.0100, L501.5200 ####[facility] [address] [place], [address] Absolute Neut 6.9 X10 3/uL Normal 2.0-7.7 [facility] Comment on above: Performed By: #### L 501.2300, L500.2500, L100.0100, L501.5200 ####[facility] [address] [place], [address] Basophils/100 WBC (Bld) 0.2 % Normal 0-1 [facility] Comment on above: Performed By: #### L 501.2300, L500.2500, L100.0100, L501.5200 ####[facility] [address] [place], [address] Eosinophils/100 WBC (Bld) 1.6 % Normal 0-5 [facility] Comment on above: Performed By: #### L 501.2300, L500.2500, L100.0100, L501.5200 ####[facility] [address] [place], [address] Erythrocyte distribution width (RBC) [Ratio] 16.6 % High 11.6-14.6 [facility] Comment on above: Performed By: #### L 501.2300, L500.2500, L100.0100, L501.5200 ####[facility] [address] [place], [address] Hematocrit (Bld) [Volume fraction] 23.7 % Low 37-47 [facility] Comment on above: Performed By: #### L 501.2300, L500.2500, L100.0100, L501.5200 ####[facility] [address] [place], [address] Hemoglobin (Bld) [Mass/Vol] 7.8 g/dL Low 12.0-15.0 [facility] Comment on above: Performed By: #### L 501.2300, L500.2500, L100.0100, L501.5200 ####[facility] [address] [place], [address] IG% 1.500 High 0.0-0.9 [facility] Comment on above: Result Comment: IG% - Immature Granulocytes (promyelocytes, myelocytes andmetamyelocytes) > 1% indicates that a LEFT SHIFT is Present. Performed By: #### L 501.2300, L500.2500, L100.0100, L501.5200 ####[facility] [address] [place], [address] Lymphocytes/100 WBC (Bld) 7.6 % Low 19-41 [facility] Comment on above: Performed By: #### L 501.2300, L500.2500, L100.0100, L501.5200 ####[facility] [address] [place], [address] MCH (RBC) [Entitic mass] 28.8 pg Normal 27.0-32.0 [facility] Comment on above: Performed By: #### L 501.2300, L500.2500, L100.0100, L501.5200 ####[facility] [address] [place], [address] MCHC (RBC) [Mass/Vol] 32.9 g/dL Normal 32-36 [facility] Comment on above: Performed By: #### L 501.2300, L500.2500, L100.0100, L501.5200 ####[facility] [address] [place], [address] MCV (RBC) [Entitic vol] 87.5 fL Normal 81-99 [facility] Comment on above: Performed By: #### L 501.2300, L500.2500, L100.0100, L501.5200 ####[facility] [address] [place], [address] Monocytes/100 WBC (Bld) 8.5 % Normal 0-10 [facility] Comment on above: Performed By: #### L 501.2300, L500.2500, L100.0100, L501.5200 ####[facility] [address] [place], [address] Neutrophils/100 WBC (Bld) 80.6 % High 47-70 [facility] Comment on above: Performed By: #### L 501.2300, L500.2500, L100.0100, L501.5200 ####[facility] [address] [place], [address] Nucleated RBC (Bld) [#/Vol] 0 10*3/uL Normal 0-5 [facility] Comment on above: Performed By: #### L 501.2300, L500.2500, L100.0100, L501.5200 ####[facility] [address] [place], [address] Platelet mean volume (Bld) [Entitic vol] 10.3 fL Normal 6.2-12.0 [facility] Comment on above: Performed By: #### L 501.2300, L500.2500, L100.0100, L501.5200 ####[facility] [address] [place], [address] Platelets (Bld) [#/Vol] 223 10*3/uL Normal 150-450 [facility] Comment on above: Performed By: #### L 501.2300, L500.2500, L100.0100, L501.5200 ####[facility] [address] [place], [address] RBC (Bld) [#/Vol] 2.71 10*6/uL Low 4.2-5.4 [facility] Comment on above: Performed By: #### L 501.2300, L500.2500, L100.0100, L501.5200 ####[facility] [address] [place], [address] RDW SD 52.6 fl High 35.1-43.9 [facility] Comment on above: Performed By: #### L 501.2300, L500.2500, L100.0100, L501.5200 ####[facility] [address] [place], [address] WBC (Bld) [#/Vol] 8.6 10*3/uL Normal 4.4-11.0 [facility] Comment on above: Performed By: #### L 501.2300, L500.2500, L100.0100, L501.5200 ####[facility] [address] [place], [address] CNPNon 01-21-2025 CNPN Normal [facility] Culture, Blood (WB)on 2024 CUB Blood cultures x2, f rom two different sites No growth in 5 days. Normal [facility] Comment on above: Performed By: #### M 200.1000, L501.6901, L503.6005 ####[facility] [address] [place], [address] Magnesiumon 01-21-2025 Magnesium [Mass/Vol] 1.5 mg/dL Normal 1.5-2.2 [facility] Comment on above: Performed By: #### L 501.2300, L500.2500, L100.0100, L501.5200 ####[facility] [address] [place], [address] Phosphoruson 01-21-2025 Phosphate [Mass/Vol] 2.6 mg/dL Low 2.7-4.5 [facility] Comment on above: Performed By: #### L 501.2300, L500.2500, L100.0100, L501.5200 ####[facility] [address] [place], [address] Urine Cultureon 01-21-2025 URC Normal [facility] Comment on above: Performed By: #### M 100.2200 ####[facility] [address] [place], [address] CBC W/Diff, Automatedon 12-26 Absolute Lymph 0.54 X10 3/uL Low 0.83-4.51 [facility] Comment on above: Performed By: #### L 500.4050, L100.0100 ####[facility] [address] [place], [address] Absolute Neut 6.0 X10 3/uL Normal 2.0-7.7 [facility] Comment on above: Performed By: #### L 500.4050, L100.0100 ####[facility] [address] [place], [address] Basophils/100 WBC (Bld) 0.4 % Normal 0-1 [facility] Comment on above: Performed By: #### L 500.4050, L100.0100 ####[facility] [address] [place], [address] Eosinophils/100 WBC (Bld) 0.5 % Normal 0-5 [facility] Comment on above: Performed By: #### L 500.4050, L100.0100 ####[facility] [address] [place], [address] Erythrocyte distribution width (RBC) [Ratio] 16.5 % High 11.6-14.6 [facility] Comment on above: Performed By: #### L 500.4050, L100.0100 ####[facility] [address] [place], [address] Hematocrit (Bld) [Volume fraction] 25.0 % Low 37-47 [facility] Comment on above: Performed By: #### L 500.4050, L100.0100 ####[facility] [address] [place], [address] Hemoglobin (Bld) [Mass/Vol] 8.3 g/dL Low 12.0-15.0 [facility] Comment on above: Performed By: #### L 500.4050, L100.0100 ####[facility] [address] [place], [address] IG% 0.900 Normal 0.0-0.9 [facility] Comment on above: Result Comment: IG% - Immature Granulocytes (promyelocytes, myelocytes andmetamyelocytes) > 1% indicates that a LEFT SHIFT is Present. Performed By: #### L 500.4050, L100.0100 ####[facility] [address] [place], [address] Lymphocytes/100 WBC (Bld) 7.0 % Low 19-41 [facility] Comment on above: Performed By: #### L 500.4050, L100.0100 ####[facility] [address] [place], [address] MCH (RBC) [Entitic mass] 29.6 pg Normal 27.0-32.0 [facility] Comment on above: Performed By: #### L 500.4050, L100.0100 ####[facility] [address] [place], [address] MCHC (RBC) [Mass/Vol] 33.2 g/dL Normal 32-36 [facility] Comment on above: Performed By: #### L 500.4050, L100.0100 ####[facility] [address] [place], [address] MCV (RBC) [Entitic vol] 89.3 fL Normal 81-99 [facility] Comment on above: Performed By: #### L 500.4050, L100.0100 ####[facility] [address] [place], [address] Monocytes/100 WBC (Bld) 13.4 % High 0-10 [facility] Comment on above: Performed By: #### L 500.4050, L100.0100 ####[facility] [address] [place], [address] Neutrophils/100 WBC (Bld) 77.8 % High 47-70 [facility] Comment on above: Performed By: #### L 500.4050, L100.0100 ####[facility] [address] [place], [address] Nucleated RBC (Bld) [#/Vol] 0 10*3/uL Normal 0-5 [facility] Comment on above: Performed By: #### L 500.4050, L100.0100 ####[facility] [address] [place], [address] Platelet mean volume (Bld) [Entitic vol] 10.8 fL Normal 6.2-12.0 [facility] Comment on above: Performed By: #### L 500.4050, L100.0100 ####[facility] [address] [place], [address] Platelets (Bld) [#/Vol] 237 10*3/uL Normal 150-450 [facility] Comment on above: Performed By: #### L 500.4050, L100.0100 ####[facility] [address] [place], [address] RBC (Bld) [#/Vol] 2.80 10*6/uL Low 4.2-5.4 [facility] Comment on above: Performed By: #### L 500.4050, L100.0100 ####[facility] [address] [place], [address] RDW SD 53.2 fl High 35.1-43.9 [facility] Comment on above: Performed By: #### L 500.4050, L100.0100 ####[facility] [address] [place], [address] WBC (Bld) [#/Vol] 7.7 10*3/uL Normal 4.4-11.0 [facility] Comment on above: Performed By: #### L 500.4050, L100.0100 ####[facility] [address] [place], [address] CNPNon 01-20-2025 CNPN Normal [facility] ilon 01-20-2025 Albumin [Mass/Vol] 2.5 g/dL Low 3.4-4.8 [facility] Comment on above: Performed By: #### L 500.4050, L100.0100 ####[facility] [address] [place], [address] Albumin/Globulin [Mass ratio] 1.1 {ratio} Normal 0.9-2.4 [facility] Comment on above: Performed By: #### L 500.4050, L100.0100 ####[facility] [address] [place], [address] ALK PHOS 73 U/L Normal 35-104 [facility] Comment on above: Performed By: #### L 500.4050, L100.0100 ####[facility] [address] [place], [address] ALT [Catalytic activity/Vol] U/L Normal <=34 [facility] Comment on above: Performed By: #### L 500.4050, L100.0100 ####[facility] [address] [place], [address] AST [Catalytic activity/Vol] 29 U/L Normal <=31 [facility] Comment on above: Performed By: #### L 500.4050, L100.0100 ####[facility] [address] [place], [address] Bilirubin [Mass/Vol] 0.22 mg/dL Normal 0.00-1.30 [facility] Comment on above: Performed By: #### L 500.4050, L100.0100 ####[facility] [address] [place], [address] BUN/CRE 13.2 RATIO Normal 10-20 [facility] Comment on above: Performed By: #### L 500.4050, L100.0100 ####[facility] [address] [place], [address] Calcium [Mass/Vol] 7.4 mg/dL Low 7.6-11.0 [facility] Comment on above: Performed By: #### L 500.4050, L100.0100 ####[facility] [address] [place], [address] Chloride [Moles/Vol] 106 mmol/L Normal 98-108 [facility] Comment on above: Performed By: #### L 500.4050, L100.0100 ####[facility] [address] [place], [address] CO2 [Moles/Vol] 18.0 mmol/L Low 21.0-32.0 [facility] Comment on above: Performed By: #### L 500.4050, L100.0100 ####[facility] [address] [place], [address] Creatinine [Mass/Vol] 0.57 mg/dL Low 0.70-1.20 [facility] Comment on above: Performed By: #### L 500.4050, L100.0100 ####[facility] [address] [place], [address] ECRCL 37.85 ml/min Low 50-250 [facility] Comment on above: Performed By: #### L 500.4050, L100.0100 ####[facility] [address] [place], [address] GAP 12 Normal 5-15 [facility] Comment on above: Performed By: #### L 500.4050, L100.0100 ####[facility] [address] [place], [address] GFR/1.73 sq M.predicted among non-blacks MDRD (S/P/Bld) [Vol rate/Area] 101 mL/min/{1.73_m2} Normal >60 [facility] Comment on above: Result Comment: mL/m in/1.73m2 CKD-EPI Creatinine Equation (2020) Performed By: #### L 500.4050, L100.0100 ####[facility] [address] [place], [address] Globulin (S) [Mass/Vol] 2.2 g/dL Normal 2.2-4.2 [facility] Comment on above: Performed By: #### L 500.4050, L100.0100 ####[facility] [address] [place], [address] Glucose [Mass/Vol] 76 mg/dL Normal 70-99 [facility] Comment on above: Performed By: #### L 500.4050, L100.0100 ####[facility] [address] [place], [address] Potassium [Moles/Vol] 4.5 mmol/L Normal 3.3-5.1 [facility] Comment on above: Performed By: #### L 500.4050, L100.0100 ####[facility] [address] [place], [address] Sodium [Moles/Vol] 135 mmol/L Normal 133-145 [facility] Comment on above: Performed By: #### L 500.4050, L100.0100 ####[facility] [address] [place], [address] T PROT 4.8 g/dL Low 5.9-8.4 [facility] Comment on above: Performed By: #### L 500.4050, L100.0100 ####[facility] [address] [place], [address] Urea nitrogen [Mass/Vol] 7 mg/dL Normal 4-19 [facility] Comment on above: Performed By: #### L 500.4050, L100.0100 ####[facility] [address] [place], [address] Abdomen/Pelvis W IV Cont ONL Yon 01-19-2025 Abdomen/Pelvis W IV Cont ONLY Normal [facility] Beta-Hydroxbytyrateon 2024 BETA-HYDROXYBUT 2.4 mmol/L High 0.0-0.3 [facility] Comment on above: Performed By: #### M 200.1000, L501.6901, L503.6005 ####[facility] [address] [place], [address] Blood Gases by [facility] 025 TARYN TEST Positive Normal [facility] Comment on above: Performed By: #### L 9000.0800 ####[facility] [address] [place], [address] Base excess Calc (Bld) [Moles/Vol] 6 mmol/L High -2 to +2 [facility] Comment on above: Performed By: #### L 9000.0800 ####[facility] [address] [place], [address] Blood Gas Type ART Normal [facility] Comment on above: Performed By: #### L 9000.0800 ####[facility] [address] [place], [address] CO2 [Moles/Vol] 32 mmol/L [facility] Comment on above: Performed By: #### L 9000.0800 ####[facility] [address] [place], [address] HCO3 (Bld) [Moles/Vol] 30.3 mmol/L High 22-26 [facility] Comment on above: Performed By: #### L 9000.0800 ####[facility] [address] [place], [address] Mode Not entered [facility] Comment on above: Performed By: #### L 9000.0800 ####[facility] [address] [place], [address] O2 Delivery Dev Room Air [facility] Comment on above: Performed By: #### L 9000.0800 ####[facility] [address] [place], [address] pCO2 47.5 mmHg High 35-45 [facility] Comment on above: Performed By: #### L 9000.0800 ####[facility] [address] [place], [address] pH (Bld) 7.41 [pH] Normal 7.35-7.45 [facility] Comment on above: Performed By: #### L 9000.0800 ####[facility] [address] [place], [address] PO2 59 mmHG Low 75-100 [facility] Comment on above: Performed By: #### L 9000.0800 ####[facility] [address] [place], [address] SITE L Radial Normal [facility] Comment on above: Performed By: #### L 9000.0800 ####[facility] [address] [place], [address] SO2 90 Low 94-98 [facility] Comment on above: Performed By: #### L 9000.0800 ####[facility] [address] [place], [address] CBC W/Diff, Automatedon 10-2 Absolute Lymph 1.07 X10 3/uL Normal 0.83-4.51 [facility] Comment on above: Performed By: #### L 100.0100, L501.2450, L500.4050 ####[facility] [address] [place], [address] Absolute Neut 3.4 X10 3/uL Normal 2.0-7.7 [facility] Comment on above: Performed By: #### L 100.0100, L501.2450, L500.4050 ####[facility] [address] [place], [address] Basophils/100 WBC (Bld) 1.6 % High 0-1 [facility] Comment on above: Performed By: #### L 100.0100, L501.2450, L500.4050 ####[facility] [address] [place], [address] Eosinophils/100 WBC (Bld) 1.1 % Normal 0-5 [facility] Comment on above: Performed By: #### L 100.0100, L501.2450, L500.4050 ####[facility] [address] [place], [address] Erythrocyte distribution width (RBC) [Ratio] 15.8 % High 11.6-14.6 [facility] Comment on above: Performed By: #### L 100.0100, L501.2450, L500.4050 ####[facility] [address] [place], [address] Hematocrit (Bld) [Volume fraction] 35.1 % Low 37-47 [facility] Comment on above: Performed By: #### L 100.0100, L501.2450, L500.4050 ####[facility] [address] [place], [address] Hemoglobin (Bld) [Mass/Vol] 11.1 g/dL Low 12.0-15.0 [facility] Comment on above: Performed By: #### L 100.0100, L501.2450, L500.4050 ####[facility] [address] [place], [address] IG% 0.500 Normal 0.0-0.9 [facility] Comment on above: Result Comment: IG% - Immature Granulocytes (promyelocytes, myelocytes andmetamyelocytes) > 1% indicates that a LEFT SHIFT is Present. Performed By: #### L 100.0100, L501.2450, L500.4050 ####[facility] [address] [place], [address] Lymphocytes/100 WBC (Bld) 19.2 % Normal 19-41 [facility] Comment on above: Performed By: #### L 100.0100, L501.2450, L500.4050 ####[facility] [address] [place], [address] MCH (RBC) [Entitic mass] 27.8 pg Normal 27.0-32.0 [facility] Comment on above: Performed By: #### L 100.0100, L501.2450, L500.4050 ####[facility] [address] [place], [address] MCHC (RBC) [Mass/Vol] 31.6 g/dL Low 32-36 [facility] Comment on above: Performed By: #### L 100.0100, L501.2450, L500.4050 ####[facility] [address] [place], [address] MCV (RBC) [Entitic vol] 88.0 fL Normal 81-99 [facility] Comment on above: Performed By: #### L 100.0100, L501.2450, L500.4050 ####[facility] [address] [place], [address] Monocytes/100 WBC (Bld) 15.9 % High 0-10 [facility] Comment on above: Performed By: #### L 100.0100, L501.2450, L500.4050 ####[facility] [address] [place], [address] Neutrophils/100 WBC (Bld) 61.7 % Normal 47-70 [facility] Comment on above: Performed By: #### L 100.0100, L501.2450, L500.4050 ####[facility] [facility] [address] [place], [address] Nucleated RBC (Bld) [#/Vol] 0 10*3/uL Normal 0-5 [facility] Comment on above: Performed By: #### L 100.0100, L501.2450, L500.4050 ####[facility] [address] [place], [address] Platelet mean volume (Bld) [Entitic vol] 10.3 fL Normal 6.2-12.0 [facility] Comment on above: Performed By: #### L 100.0100, L501.2450, L500.4050 ####[facility] [address] [place], [address] Platelets (Bld) [#/Vol] 406 10*3/uL Normal 150-450 [facility] Comment on above: Performed By: #### L 100.0100, L501.2450, L500.4050 ####[facility] [address] [place], [address] RBC (Bld) [#/Vol] 3.99 10*6/uL Low 4.2-5.4 [facility] Comment on above: Performed By: #### L 100.0100, L501.2450, L500.4050 ####[facility] [address] [place], [address] RDW SD 50.7 fl High 35.1-43.9 [facility] Comment on above: Performed By: #### L 100.0100, L501.2450, L500.4050 ####[facility] [address] [place], [address] WBC (Bld) [#/Vol] 5.6 10*3/uL Normal 4.4-11.0 [facility] Comment on above: Performed By: #### L 100.0100, L501.2450, L500.4050 ####[facility] [address] [place], [address] CDIFF (PCR)on 01-19-2025 CDIFF New/unexplained onse t of 3 or more stools in past 24 hrs? Y 027 027 NAP1-B1 Presumptive Negative *for epidemiolologic???use C. Diff PCR Negative- No toxigenic C. Diff Detected Normal [facility] Comment on above: Performed By: #### M 100.6796 ####[facility] [address] [place], [address] Comprehensive Metabolic Prof mivaibhav 01-19-2025 Albumin [Mass/Vol] 3.6 g/dL Normal 3.4-4.8 [facility] Comment on above: Performed By: #### L 100.0100, L501.2450, L500.4050 ####[facility] [address] [place], [address] Albumin/Globulin [Mass ratio] 1.1 {ratio} Normal 0.9-2.4 [facility] Comment on above: Performed By: #### L 100.0100, L501.2450, L500.4050 ####[facility] [address] [place], [address] ALK PHOS 121 U/L High 35-104 [facility] Comment on above: Performed By: #### L 100.0100, L501.2450, L500.4050 ####[facility] [address] [place], [address] ALT [Catalytic activity/Vol] 6 U/L Normal <=34 [facility] Comment on above: Performed By: #### L 100.0100, L501.2450, L500.4050 ####[facility] [address] [place], [address] AST [Catalytic activity/Vol] 30 U/L Normal <=31 [facility] Comment on above: Performed By: #### L 100.0100, L501.2450, L500.4050 ####[facility] [address] [place], [address] Bilirubin [Mass/Vol] 0.34 mg/dL Normal 0.00-1.30 [facility] Comment on above: Performed By: #### L 100.0100, L501.2450, L500.4050 ####[facility] [address] [place], [address] BUN/CRE 24.0 RATIO High 10-20 [facility] Comment on above: Performed By: #### L 100.0100, L501.2450, L500.4050 ####[facility] [address] [place], [address] Calcium [Mass/Vol] 8.9 mg/dL Normal 7.6-11.0 [facility] Comment on above: Performed By: #### L 100.0100, L501.2450, L500.4050 ####[facility] [address] [place], [address] Chloride [Moles/Vol] 92 mmol/L Low 98-108 [facility] Comment on above: Performed By: #### L 100.0100, L501.2450, L500.4050 ####[facility] [address] [place], [address] CO2 [Moles/Vol] 23.2 mmol/L Normal 21.0-32.0 [facility] Comment on above: Performed By: #### L 100.0100, L501.2450, L500.4050 ####[facility] [address] [place], [address] Creatinine [Mass/Vol] 1.03 mg/dL Normal 0.70-1.20 [facility] Comment on above: Performed By: #### L 100.0100, L501.2450, L500.4050 ####[facility] [address] [place], [address] ECRCL 31.72 ml/min Low 50-250 [facility] Comment on above: Performed By: #### L 100.0100, L501.2450, L500.4050 ####[facility] [address] [place], [address] GAP 23 High 5-15 [facility] Comment on above: Performed By: #### L 100.0100, L501.2450, L500.4050 ####[facility] [address] [place], [address] GFR/1.73 sq M.predicted among non-blacks MDRD (S/P/Bld) [Vol rate/Area] 60 mL/min/{1.73_m2} Normal >60 [facility] Comment on above: Result Comment: mL/m in/1.73m2 CKD-EPI Creatinine Equation (2020) Performed By: #### L 100.0100, L501.2450, L500.4050 ####[facility] [address] [place], [address] Globulin (S) [Mass/Vol] 3.4 g/dL Normal 2.2-4.2 [facility] Comment on above: Performed By: #### L 100.0100, L501.2450, L500.4050 ####[facility] [address] [place], [address] Glucose [Mass/Vol] 302 mg/dL High 70-99 [facility] Comment on above: Performed By: #### L 100.0100, L501.2450, L500.4050 ####[facility] [address] [place], [address] Potassium [Moles/Vol] 2.8 mmol/L Low 3.3-5.1 [facility] Comment on above: Performed By: #### L 100.0100, L501.2450, L500.4050 ####[facility] [address] [place], [address] Sodium [Moles/Vol] 138 mmol/L Normal 133-145 [facility] Comment on above: Performed By: #### L 100.0100, L501.2450, L500.4050 ####[facility] [address] [place], [address] T PROT 6.9 g/dL Normal 5.9-8.4 [facility] Comment on above: Performed By: #### L 100.0100, L501.2450, L500.4050 ####[facility] [address] [place], [address] Urea nitrogen [Mass/Vol] 25 mg/dL High 4-19 [facility] Comment on above: Performed By: #### L 100.0100, L501.2450, L500.4050 ####[facility] [address] [place], [address] ENTERIC PATHOGEN PANEL STOOL on 01-19-2025 EP PANEL CAMPYLOBACTER Not Detected Norovirus Not Detected Rotavirus Not Detected Salmonella Not Detected Shiga Toxin Not Detected Shigella sp. Not Detected VIBRIO Not Detected Yersinia Not Detected Normal [facility] Comment on above: Performed By: #### M 100.0605, M100.637, M300.4500, M300.4600 ####[facility] [address] [place], [address] Emergency Department Summary on 01-19-2025 Emergency Department Summary Normal [facility] Folates,Serum (Folic Acid)on 01-19-2025 FOLATES,SERUM 32.10 ng/mL Normal 4.60-34.80 [facility] Comment on above: Performed By: #### L 506.0200, L501.9985, L501.5200, L501.9520, L501.2450 ####[facility] [address] [place], [address] H AND P Exam - Hospitaliston 01-19-2025 H&P Exam - Hospitalist Normal [facility] Hemoglobin A1con 01-19-2025 HbA1c (Bld) [Mass fraction] 4.8 % Normal <=5.6 [facility] Comment on above: Result Comment: Norm al < 5.7 % Prediabetic 5.7 - 6.4 % Diabetic >or= 6.5 % Please note range changes. Performed By: #### L 506.0200, L501.9985, L501.5200, L501.9520, L501.2450 ####[facility] [address] [place], [address] Lactic Acidon 01-19-2025 Lactate [Moles/Vol] mmol/L Normal 0.0-2.0 [facility] Comment on above: Order Comment: Y Performed By: #### M 200.1000, L501.6901, L503.6005 ####[facility] [address] [place], [address] Legionella Antigen Urineon 1 LEGU Normal [facility] Comment on above: Performed By: #### M 100.0605, M100.637, M300.4500, M300.4600 ####[facility] [address] [place], [address] Lipaseon 01-19-2025 Lipase [Catalytic activity/Vol] 29 U/L Normal 13-75 [facility] Comment on above: Result Comment: Plea se note:LIPASE revised reference range effective 22.New Lipase methodology. Expected to produce lower valuesthan the previous assay method.NEW Reference Range: 13 - 75 U/L Performed By: #### L 506.0200, L501.9985, L501.5200, L501.9520, L501.2450 ####[facility] [address] [place], [address] Lipase [Catalytic activity/Vol] 24 U/L Normal 13-75 [facility] Comment on above: Result Comment: Plea se note:LIPASE revised reference range effective 22.New Lipase methodology. Expected to produce lower valuesthan the previous assay method.NEW Reference Range: 13 - 75 U/L Performed By: #### L 100.0100, L501.2450, L500.4050 ####[facility] [address] [place], [address] Magnesiumon 01-19-2025 Magnesium [Mass/Vol] 1.6 mg/dL Normal 1.5-2.2 [facility] Comment on above: Performed By: #### L 506.0200, L501.9985, L501.5200, L501.9520, L501.2450 ####[facility] [address] [place], [address] Partial Thromboplast Timeon 01-19-2025 aPTT Coag (Bld) [Time] 31.7 s Normal 24.1-36.2 [facility] Comment on above: Performed By: #### L 300.4310, L300.3900 ####[facility] [address] [place], [address] Prothrombin Time w/INRon INR Coag (PPP) [Relative time] 1.2 {INR} Normal [facility] Comment on above: Performed By: #### L 300.4310, L300.3900 ####[facility] [address] [place], [address] PT Coag (PPP) [Time] 15.3 s High 11.7-14.9 [facility] Comment on above: Performed By: #### L 300.4310, L300.3900 ####[facility] [address] [place], [address] Stool Lactoferrin/WBCon 12-26 WBCST Normal Reference Ran ge = Negative Fecal WBC Lactoferrin A Positive: Fecal WBC Lactoferrin present A Normal [facility] Comment on above: Performed By: #### M 100.0605, M100.637, M300.4500, M300.4600 ####[facility] [address] [place], [address] Strep pneumoniae Antig(UR,CS F)on 01-19-2025 STPAG Normal [facility] Comment on above: Performed By: #### M 100.0605, M100.637, M300.4500, M300.4600 ####[facility] [address] [place], [address] Thyroid Stim Hormone (TSH)on 01-19-2025 TSH 2.330 uIU/mL Normal 0.300-4.20 0 [facility] Comment on above: Performed By: #### L 506.0200, L501.9985, L501.5200, L501.9520, L501.2450 ####[facility] [address] [place], [address] Urinalysis, Completeon 01-19 BACTERIA 2+ /hpf Normal None Seen [facility] Comment on above: Order Comment: CARROLL CTOR TO SPECIFY Performed By: #### L 400.0001 ####[facility] [address] [place], [address] EPI,SQUAMOUS 0-5 SEEN Normal 5-10 [facility] Comment on above: Order Comment: CARROLL CTOR TO SPECIFY Performed By: #### L 400.0001 ####[facility] [address] [place], [address] RBC 0-5 SEEN Normal 0-5 [facility] Comment on above: Order Comment: CARROLL CTOR TO SPECIFY Performed By: #### L 400.0001 ####[facility] [address] [place], [address] WBC 5-10 SEEN Normal 0-5 [facility] Comment on above: Order Comment: CARROLL CTOR TO SPECIFY Performed By: #### L 400.0001 ####[facility] [address] [place], [address] BILIRUBIN URINE Negative Normal Negative [facility] Comment on above: Order Comment: CARROLL CTOR TO SPECIFY Performed By: #### L 400.0001 ####[facility] [address] [place], [address] Clarity (U) Clear Normal Clear [facility] Comment on above: Order Comment: CARROLL CTOR TO SPECIFY Performed By: #### L 400.0001 ####[facility] [address] [place], [address] Color (U) Yellow Normal Yellow [facility] Comment on above: Order Comment: CARROLL CTOR TO SPECIFY Performed By: #### L 400.0001 ####[facility] [address] [place] [address] GLUCOSE, UR Normal Normal Normal [facility] Comment on above: Order Comment: CARROLL CTOR TO SPECIFY Performed By: #### L 400.0001 ####[facility] [address] [place] [address] KETONE UR 50 mg/dl Abnormal Negative [facility] Comment on above: Order Comment: CARROLL CTOR TO SPECIFY Performed By: #### L 400.0001 ####[facility] [address] [place] [address] LEUK ESTERASE 25 /ul Abnormal Negative [facility] Comment on above: Order Comment: CARROLL CTOR TO SPECIFY Performed By: #### L 400.0001 ####[facility] [address] [place], [place], [phone] Nitrite Ql (U) Negative Normal Negative [facility] Comment on above: Order Comment: CARROLL CTOR TO SPECIFY Performed By: #### L 400.0001 ####[facility] [address] [place] [address] OCCULT BLOOD-UR 10 /ul Abnormal Negative [facility] Comment on above: Order Comment: CARROLL CTOR TO SPECIFY Performed By: #### L 400.0001 ####[facility] [address] [place] [address] pH UR 6.5 Normal 5.0 - 8.0 [facility] Comment on above: Order Comment: CARROLL CTOR TO SPECIFY Performed By: #### L 400.0001 ####[facility] [address] [place], [address] PROT DIPSTX 30 mg/dl Abnormal Negative [facility] Comment on above: Order Comment: CARROLL CTOR TO SPECIFY Performed By: #### L 400.0001 ####[facility] [address] [place], [address] SP.GR. DIPSTX 1.010 Normal 1.002-1.03 0 [facility] Comment on above: Order Comment: CARROLL CTOR TO SPECIFY Performed By: #### L 400.0001 ####[facility] [address] [place], [address] UROBILI Normal Normal Normal [facility] Comment on above: Order Comment: CARROLL CTOR TO SPECIFY Performed By: #### L 400.0001 ####[facility] [address] [place], [address] Mucus Ql (Urine sed) 0 SEEN Normal [facility] Comment on above: Order Comment: CARROLL CTOR TO SPECIFY Performed By: #### L 400.0001 ####[facility] [address] [place], [address] Vitamin B12on 01-19-2025 Cobalamin (Vitamin B12) [Mass/Vol] 1212 pg/mL High 180-914 [facility] Comment on above: Performed By: #### L 503.0106 ####[facility] [address] [place], [address] CNCNPATEDon 01-17-2025 CNCNPATED Normal [facility] CNPNon 01-14-2025 CNPN Normal [facility] CNPNon 01-09-2025 CNPN Normal [facility] CBC W Auto Differential pane l (Bld)on 01-07-2025 Basophils (Bld) [#/Vol] 0.10 10*3/uL Normal <0.11 [facility] Comment on above: Order Comment: Speci men Type: BLOOD SPECIMENOrdering Facility: [facility] Address: [address] [place] [address] Performed By: #### 5 7021-8 ####[facility] MILLWNCLIA [id number] [place] [address] [place] Basophils/100 WBC (Bld) 1.3 % Normal [facility] Comment on above: Order Comment: Speci men Type: BLOOD SPECIMENOrdering Facility: [facility] Address: [address] [place] [address] Performed By: #### 5 7021-8 ####[facility] [id number] [place] [address] [place] Differential cell count method Nom (Bld) Auto Normal [facility] Comment on above: Order Comment: Speci men Type: BLOOD SPECIMENOrdering Facility: [facility] Address: [address] [place] [address] Performed By: #### 5 7021-8 ####[facility] [id number] [place] [address] [place] Eosinophils (Bld) [#/Vol] 0.26 10*3/uL Normal <0.46 [facility] Comment on above: Order Comment: Speci men Type: BLOOD SPECIMENOrdering Facility: [facility] Address: [address] [place] [address] Performed By: #### 5 7021-8 ####[facility] [id number] [place] [address] [place] Eosinophils/100 WBC (Bld) 3.4 % Normal [facility] Comment on above: Order Comment: Speci men Type: BLOOD SPECIMENOrdering Facility: [facility] Address: [address] [place] [address] Performed By: #### 5 7021-8 ####[facility] BISHNUWNCLIA [id number] [place] [address] [place] Erythrocyte distribution width (RBC) [Ratio] 16.2 % High 11.5-15.0 [facility] Comment on above: Order Comment: Speci men Type: BLOOD SPECIMENOrdering Facility: [facility] Address: [address] [place] [address] Performed By: #### 5 7021-8 ####[facility]ITAL[facility]CL[facility] [id number] [place] [address] [place] Hematocrit (Bld) [Volume fraction] 29.0 % Low 36.0-46.0 [facility] Comment on above: Order Comment: Speci men Type: BLOOD SPECIMENOrdering Facility: [facility] Address: [address] [place] [address] Performed By: #### 5 7021-8 ####[facility]ITAL[facility]CL[facility] [id number] [place] [address] [place] Hemoglobin (Bld) [Mass/Vol] 9.2 g/dL Low 11.5-15.5 [facility] Comment on above: Order Comment: Speci men Type: BLOOD SPECIMENOrdering Facility: [facility] Address: [address] [place] [address] Performed By: #### 5 7021-8 ####[facility]ITALNCLIA [id number] [place] [address] [place] Immature granulocytes (Bld) [#/Vol] 10*3/uL Normal <0.10 [facility] Comment on above: Order Comment: Speci men Type: BLOOD SPECIMENOrdering Facility: [facility] Address: [address] [place] [address] Performed By: #### 5 7021-8 ####[facility]ITALKALIEMOUNT[facility]STAR [facility] [id number] [place] [address] [place] Immature granulocytes/100 WBC (Bld) 0.3 % Normal [facility] Comment on above: Order Comment: Speci men Type: BLOOD SPECIMENOrdering Facility: [facility] Address: [address] [place] [address] Performed By: #### 5 7021-8 ####[facility] [id number] [place] [address] [place] Lymphocytes (Bld) [#/Vol] 1.32 10*3/uL Normal 1.00-4.00 [facility] Comment on above: Order Comment: Speci men Type: BLOOD SPECIMENOrdering Facility: [facility] Address: [address] [place] [address] Performed By: #### 5 7021-8 ####[facility] [id number] [place] [address] [place] Lymphocytes/100 WBC (Bld) 17.5 % Normal [facility] Comment on above: Order Comment: Speci men Type: BLOOD SPECIMENOrdering Facility: [facility] Address: [address] [place] [address] Performed By: #### 5 7021-8 ####[facility] [id number] [place] [address] [place] MCH (RBC) [Entitic mass] 28.6 pg Normal 26.0-34.0 [facility] Comment on above: Order Comment: Speci men Type: BLOOD SPECIMENOrdering Facility: [facility] Address: [address] [place] [address] Performed By: #### 5 7021-8 ####[facility] [id number] [place] [address] [place] MCHC (RBC) [Mass/Vol] 31.7 g/dL Normal 30.5-36.0 [facility] Comment on above: Order Comment: Speci men Type: BLOOD SPECIMENOrdering Facility: [facility] Address: [address] [place] [address] Performed By: #### 5 7021-8 ####[facility]PITALNCMOUNTAINSTAR [facility]ALTH[facility]ARE [id number] [place] [address] [place] MCV (RBC) [Entitic vol] 90.1 fL Normal 80.0-100.0 [facility] Comment on above: Order Comment: Speci men Type: BLOOD SPECIMENOrdering Facility: [facility] Address: [address] [place] [address] Performed By: #### 5 7021-8 ####[facility]ITALNCMOUNT[facility]STAR [facility] [id number] [place] [address] [place] Monocytes (Bld) [#/Vol] 0.63 10*3/uL Normal <0.87 [facility] Comment on above: Order Comment: Speci men Type: BLOOD SPECIMENOrdering Facility: [facility] Address: [address] [place] [address] Performed By: #### 5 7021-8 ####[facility] HOSPITALNCLI [id number] [place] [address] [place] Monocytes/100 WBC (Bld) 8.3 % Normal [facility] Comment on above: Order Comment: Speci men Type: BLOOD SPECIMENOrdering Facility: [facility] Address: [address] [place] [address] Performed By: #### 5 7021-8 ####[facility] HOSPITALNCA [id number] [place] [address] [place] Neutrophils (Bld) [#/Vol] 5.22 10*3/uL Normal 1.45-7.50 [facility] Comment on above: Order Comment: Speci men Type: BLOOD SPECIMENOrdering Facility: [facility] Address: [address] [place] [address] Performed By: #### 5 7021-8 ####[facility] BISHNUCOLELIA [id number] [place] [address] [place] Neutrophils/100 WBC (Bld) 69.2 % Normal [facility] Comment on above: Order Comment: Speci men Type: BLOOD SPECIMENOrdering Facility: [facility] Address: [address] [place] [address] Performed By: #### 5 7021-8 ####[facility] HOSPITALKALIELIA [id number] [place] [address] [place] Nucleated RBC (Bld) [#/Vol] 10*3/uL Normal <0.01 [facility] Comment on above: Order Comment: Speci men Type: BLOOD SPECIMENOrdering Facility: [facility] Address: [address] [place] [address] Performed By: #### 5 7021-8 ####[facility] [id number] [place] [address] [place] Nucleated RBC/100 WBC (Bld) [Ratio] 0.0 /100 WBC Normal [facility] Comment on above: Order Comment: Speci men Type: BLOOD SPECIMENOrdering Facility: [facility] Address: [address] [place] [address] Performed By: #### 5 7021-8 ####[facility] HOSPITALKALIELIA [id number] [place] [address] [place] Platelet mean volume (Bld) [Entitic vol] 9.7 fL Normal 9.0-12.7 [facility] Comment on above: Order Comment: Speci men Type: BLOOD SPECIMENOrdering Facility: [facility] Address: [address] [place] [address] Performed By: #### 5 7021-8 ####[facility] HOSPITALLIA [id number] [place] [address] [place] Platelets (Bld) [#/Vol] 232 10*3/uL Normal 150-400 [facility] Comment on above: Order Comment: Speci men Type: BLOOD SPECIMENOrdering Facility: [facility] Address: [address] [place] [address] Performed By: #### 5 7021-8 ####[facility] HOSPITALFUAD [id number] [place] [address] [place] RBC (Bld) [#/Vol] 3.22 10*6/uL Low 3.90-5.20 [facility] Comment on above: Order Comment: Speci men Type: BLOOD SPECIMENOrdering Facility: [facility] Address: [address] [place] [address] Performed By: #### 5 7021-8 ####[facility] HOSPITALNCCALDERONA [id number] [place] [address] [place] WBC (Bld) [#/Vol] 7.55 10*3/uL Normal 3.70-11.00 [facility] Comment on above: Order Comment: Speci men Type: BLOOD SPECIMENOrdering Facility: [facility] Address: [address] [place] [address] Performed By: #### 5 7021-8 ####[facility]PITALLIA [id number] [place] [address] [place] CEA SerPl-mCncon 01-07-2025 Carcinoembryonic Ag [Mass/Vol] 49.3 ng/mL High <=2.9 [facility] Comment on above: Order Comment: Speci men Type: BLOOD SPECIMENOrdering Facility: [facility] Address: [address] [place] [address] Result Comment: Carc inoembryonic antigen test is used as an aid in monitoring response to treatment or recurrence in patients with established colorectal, breast, lung, prostatic, pancreatic, and ovarian carcinomas. Clinical correlation is required.The Carcinoembryonic antigen test was performed using the [employer] [place] [employer] DXI paramagnetic particle chemiluminescent immunoassay method. Results obtained with different assay methods or kits cannot be used interchangeably. Performed By: #### 2 039-6 ####[facility] LABCLIA [id number] [place] [address] [place] Comprehensive metabolic 2000 panelon 01-07-2025 Albumin [Mass/Vol] 3.4 g/dL Low 3.9-4.9 [facility] Comment on above: Order Comment: Speci men Type: BLOOD SPECIMENOrdering Facility: [facility] Address: [address] [place] [address] Performed By: #### 2 4323-8, 02867-1 ####[facility] HOSPITALNCKELSIE [id number] [place] [address] [place] ALP [Catalytic activity/Vol] 114 U/L Normal 34-123 [facility] Comment on above: Order Comment: Speci men Type: BLOOD SPECIMENOrdering Facility: [facility] Address: [address] [place] [address] Performed By: #### 2 4323-8, 86272-5 ####[facility] HOSPITALNCCALDERONA [id number] [place] [address] [place] ALT [Catalytic activity/Vol] U/L Low 7-38 [facility] Comment on above: Order Comment: Speci men Type: BLOOD SPECIMENOrdering Facility: [facility] Address: [address] [place] [address] Performed By: #### 2 4323-8, ####[facility] HOSPITALNCLIA [id number] [place] [address] [place] Anion gap [Moles/Vol] 11 mmol/L Normal 8-15 [facility] Comment on above: Order Comment: Speci men Type: BLOOD SPECIMENOrdering Facility: [facility] Address: [address] [place] [address] Performed By: #### 2 4323-8, 77214-2 ####[facility] MILLTOWNCLIA [id number] [place] [address] [place] AST [Catalytic activity/Vol] 17 U/L Normal 13-35 [facility] Comment on above: Order Comment: Speci men Type: BLOOD SPECIMENOrdering Facility: [facility] Address: [address] [place] [address] Performed By: #### 2 4323-8, ####[facility] MILLTOWNCLIA [id number] [place] [address] [place] Bilirubin [Mass/Vol] mg/dL Low 0.2-1.3 [facility] Comment on above: Order Comment: Speci men Type: BLOOD SPECIMENOrdering Facility: [facility] Address: [address] [place] [address] Performed By: #### 2 4323-8, ####[facility] HOSPITALLIA [id number] [place] [address] [place] Calcium [Mass/Vol] 8.9 mg/dL Normal 8.5-10.2 [facility] Comment on above: Order Comment: Speci men Type: BLOOD SPECIMENOrdering Facility: [facility] Address: [address] [place] [address] Performed By: #### 2 4323-8, ####[facility] BISHNUWNCLIA [id number] [place] [address] [place] Chloride [Moles/Vol] 103 mmol/L Normal 98-107 [facility] Comment on above: Order Comment: Speci men Type: BLOOD SPECIMENOrdering Facility: [facility] Address: [address] [place], [place] [address] Performed By: #### 2 4323-8, ####[facility] HOSPITALNCLIA [id number] [place] [address] [place] CO2 [Moles/Vol] 24 mmol/L Normal 22-30 [facility] Comment on above: Order Comment: Speci men Type: BLOOD SPECIMENOrdering Facility: [facility] Address: [address] [place] [address] Performed By: #### 2 4323-8, ####[facility] HOSPITALNCLIA [id number] [place] [address] [place] Creatinine [Mass/Vol] 0.54 mg/dL Low 0.58-0.96 [facility] Comment on above: Order Comment: Speci men Type: BLOOD SPECIMENOrdering Facility: [facility] Address: [address] [place] [address] Performed By: #### 2 4323-8, ####[facility] HOSPITALNCA [id number] [place] [address] [place] eGFRcr SerPlBld CKD-EPI 2020 102 mL/min/1.73m??? Normal >=60 [facility] Comment on above: Order Comment: Speci men Type: BLOOD SPECIMENOrdering Facility: [facility] Address: [address] [place] [address] Result Comment: Sana mated Glomerular Filtration Rate [...] actual GFR. Performed By: #### 2 4323-8, ####[facility] ERWNCLIA [id number] [place] [address] [place] Glucose [Mass/Vol] 101 mg/dL High 74-99 [facility] Comment on above: Order Comment: Umesh baugh Type: BLOOD SPECIMENOrdering Facility: [facility] Address: [address] [place], [place] [address] Result Comment: The [place] Diabetes Association (ADA) provides guidance for cutoff [...] Standards of Medical Care in Diabetes 2016, [place] [employer]. Diabetes Care. 2016.39(Suppl 1). Performed By: #### 2 4323-8, 42768-0 ####[facility] PARISH [id number] [place] [address] [place] Potassium [Moles/Vol] 4.1 mmol/L Normal 3.7-5.1 [facility] Comment on above: Order Comment: Umesh baugh Type: BLOOD SPECIMENOrdering Facility: [facility] Address: [address] [place], [place] [address] Performed By: #### 2 4323-8, 42483-9 ####[facility] PARISH [id number] [place] [address] [place] Protein [Mass/Vol] 6.5 g/dL Normal 6.3-8.0 [facility] Comment on above: Order Comment: Umesh baugh Type: BLOOD SPECIMENOrdering Facility: [facility] Address: [address] [place], [place] [address] Performed By: #### 2 4323-8, ####[facility] PARISH [id number] [place] [address] [place] Sodium [Moles/Vol] 138 mmol/L Normal 136-144 [facility] Comment on above: Order Comment: Speci men Type: BLOOD SPECIMENOrdering Facility: [facility] Address: [address] [place] [address] Performed By: #### 2 4323-8, 31068-4 ####[facility] HOSPITALNCMOUNTAINSTAR HEALTHCARE [id number] [place] [address] [place] Urea nitrogen [Mass/Vol] 18 mg/dL Normal 7-21 [facility] Comment on above: Order Comment: Speci men Type: BLOOD SPECIMENOrdering Facility: [facility] Address: [address] [place] [address] Performed By: #### 2 4323-8, ####[facility] HOSPITALNCLIA [id number] [place] [address] [place] Magnesium SerPl-ncon 01-07 Magnesium [Mass/Vol] 1.6 mg/dL Low 1.7-2.3 [facility] Comment on above: Order Comment: Speci men Type: BLOOD SPECIMENOrdering Facility: [facility] Address: [address] [place] [address] Performed By: #### 2 4323-8, 56681-5 ####[facility] HOSPITALNCLIA [id number] [place] [address] [place] CNPNon 01-02-2025 CNPN Normal [facility] DPYD/UGT1A1 GENOTYPING PANEL on 01-02-2025 DPYD/UGT1A1 GENOTYPING PANEL RESULT Normal [facility] Comment on above: Order Comment: Speci men Type: BLOOD SPECIMENOrdering Facility: [facility] Address: [address] [place] [address] Result Comment: [facility] macogenThe [facility] [place] (PGx) DPYD and UGT1A1 GenotypingLaboratory Accession Number: [id number] Genotype: *1/*1DPYD Activity Score: 2DPYD Predicted Phenotype: DPYD Normal FugxdepyoycDHZ9Q8 Genotype: *1/*80+*68HQB5H9 Predicted Phenotype: UGT1A1 Intermediate MetabolizerInterpretation:Two normal function [...] isassociated with a UGT1A1 intermediate metabolizer phenotype. WMF9O8nxalaziccakf metabolizers are not expected to require (based onpharmacogenomic results alone) selective adjustment of the dose ofmedications metabolized by UGT. Please consult a clinical pharmacistfor more information regarding drug therapy. Questions regardingmolecular testing details should be directed .The DPYD gene encodes dihydropyrimidine dehydrogenase (DPD). Thisenzyme is involved in the metabolism of fluoropyrimidines. The OQC8W6nvcu encodes UDP-glucuronosyltransferase (UGT). UGT is involved in [...] lists the variantsinterrogated by this test.DPYD Variant Details:[id number] Variant Details:UGT1A1 [id number], c.-346C>T, g.780992332V>T (legacy name 80); [id number], c.-41_-40dupTA g.[id number]_233760248dupTA (legacy name 28)DPYD Additional Information:In addition to increased risk of 5-fluorouracil toxicity, variants inthe DPYD gene may be associated with DPD deficiency, an autosomalrecessive inborn error of metabolism (OMIM: 409749). DPD deficiencyexhibits a wide range of phenotypic [...] list below) in the DPYD gene (OMIM 676970) fqjGIJ9K0 gene (OMIM 216608). This test does not detect all sequencevariants [...] orabsence of the following variants, RefSNP ID: [id number], [id number] (TA repeats), and [id number].DPYD star alleles and targeted variants:RefSNP ID Legacy Total Allele Highest Allele Name Frequency Frequency General Population (Population)No variantdetected *[id number] *2A 0.6% 2.4% (Eur F)[id number] *8 0.01% 0.03% (S )[id number] *10 n/[id number] *12 0.0008% 0.003% (S )[id number] *13 0.03% 0.06% (Eur F)[id number] Y186C 0.2% 2.15% ()ft29957858 c.2846A>T 0.3% 0.5% (Eur NF)sq80437963 HapB3 1.4% 2.1 % (Eur NF)fz24389932 HapB3(c.1236G>A) 1.4% 2.1% (Eur NF)Population frequencies are from gnNeotropixD and may be different inspecific ethnic groups. The allele frequency shown is the total allelefrequency in all populations. The highest allele frequency for asingle population is also noted (Eur F = Moroccan, Eur NF = non-Moroccan, S = South ). Note: [id number] (HapB3)and [id number] (c.1236G>A) are in linkage disequilibrium thus aretypically seen together.References:1) Clinical Pharmacogenetics Implementation Consortium (CPIC):www.CPICpgx.org2) Pharmacogene Variation Consortium (PharmVar): www.PharmVar.org3) Genome Aggregation Database V2.1.1 (gnNeotropixD), accessed March2021, https://Berkley Networksd.RedCloud Securitytitute.org4) Justin Willson, Leida EM, Mahin JM, et al. PharmacogenomicsKnowledge for Personalized Medicine Clinical Pharmacology andTherapeutics (2012) 92(4): 414-417.5) Douglas U, Anahi DE, Mar SM, et al. Clinical PharmacogeneticsImplementation Consortium (CPIC) Guideline for DihydropyrimidineDehydrogenase Genotype and Fluoropyrimidine Dosin Update. ClinPharmacol Ther. 2018;103(2):210-216.6) [employer], MedEncentive of Medicine 2020. Dihydropyrimidinedehydrogenase deficiency, accessed 13 October 2020,https://medlineplus.gov/genetics/condition/dihydropyrimidin v-sahrylhcqsnyt-zuchklrmgj/#resources7) Juan N, Portillo PELLETIER, Jordon LUCIOM, umberto Escobar ABP. Purine andPyrimidine Metabolism: Pyrimidine Metabolism: DihydropyrimidineDehydrogenase. Gregory and Emmett's Principles and Practice of MedicalGenetics and Genomics: Metabolic Disorders, Seventh Edition. Edited byBossman Lepe al, Elsevier. 2020. Sections 6.3.4 - 6.3.4.4https://zbg-ojurrpvytmm-xpw.ccmain.[facility].org/#!/content /book/3-s2.0-H2230024930536675776?scrollTo=%67uz14417130) Sohan RS, Radha MH, Carole CE, et al. Clinical PharmacogeneticsImplementation Consortium (CPIC) Guideline for UGT1A1 and AtazanavirPrescribing. Clinical Pharmacology and Therapeutics (2016) Apr;99(4):363-9.9) Elfego Mcfadden. Overview of Glibert's syndrome. Drug TherBull. 2019 Apr 57(2):27-30.10) [facility] 2020, Gilbert Syndrome, accessed 13 October 2020,https://my.[facility].org/health/diseases/85248-kqfydc ts-syndromeDisclaimer:This test was developed and its performance characteristics determinedby [facility]'s Pathology and Laboratory Medicine Department. Ithas not been cleared or approved by the FDA. [facility] is regulated under CLIAas certified to perform high-complexity testing. This test is used forclinical purposes. It should not be regarded as investigational or forresearch.Test performed at [facility], [address] [place] [address]. [place] Number: [id number] performed by Drea Nichols, PhD Performed By: #### D UPNL1 ####[facility] LABCLIA [id number] [place] [address] [place] CNPNon 01-01-2025 CNPN Normal [facility] CNOVSPon 12-31-2024 CNOVSP Normal [facility] CNPNon 12-31-2024 CNPN Normal [facility] CBC W Auto Differential pane l (Bld)on 12-27-2024 Basophils (Bld) [#/Vol] 0.05 10*3/uL Normal <0.11 [facility] Comment on above: Order Comment: Speci men Type: BLOOD SPECIMENOrdering Facility: [facility] Address: [address] [place] [address] Performed By: #### 5 7021-8 ####[facility] HOSPITALLIA [id number] [place] [address] [place] Basophils/100 WBC (Bld) 0.6 % Normal [facility] Comment on above: Order Comment: Speci men Type: BLOOD SPECIMENOrdering Facility: [facility] Address: [address] [place] [address] Performed By: #### 5 7021-8 ####[facility] HOSPITALLIA [id number] [place] [address] [place] Differential cell count method Nom (Bld) Auto Normal [facility] Comment on above: Order Comment: Speci men Type: BLOOD SPECIMENOrdering Facility: [facility] Address: [address] [place] [address] Performed By: #### 5 7021-8 ####[facility]ITALA [id number] [place] [address] [place] Eosinophils (Bld) [#/Vol] 0.31 10*3/uL Normal <0.46 [facility] Comment on above: Order Comment: Speci men Type: BLOOD SPECIMENOrdering Facility: [facility] Address: [address] [place] [address] Performed By: #### 5 7021-8 ####[facility] [id number] [place] [address] [place] Eosinophils/100 WBC (Bld) 4.0 % Normal [facility] Comment on above: Order Comment: Speci men Type: BLOOD SPECIMENOrdering Facility: [facility] Address: [address] [place] [address] Performed By: #### 5 7021-8 ####[facility]PITALNCMOUNTAINSTAR [facility]ALTHCARE [id number] [place] [address] [place] Erythrocyte distribution width (RBC) [Ratio] 16.1 % High 11.5-15.0 [facility] Comment on above: Order Comment: Speci men Type: BLOOD SPECIMENOrdering Facility: [facility] Address: [address] [place] [address] Performed By: #### 5 7021-8 ####[facility] H[facility]PITALNCLIA [id number] [place] [address] [place] Hematocrit (Bld) [Volume fraction] 27.1 % Low 36.0-46.0 [facility] Comment on above: Order Comment: Speci men Type: BLOOD SPECIMENOrdering Facility: [facility] Address: [address] [place] [address] Performed By: #### 5 7021-8 ####[facility] HOSPITALNCLI [id number] [place] [address] [place] Hemoglobin (Bld) [Mass/Vol] 8.9 g/dL Low 11.5-15.5 [facility] Comment on above: Order Comment: Speci men Type: BLOOD SPECIMENOrdering Facility: [facility] Address: [address] [place] [address] Performed By: #### 5 7021-8 ####[facility] BISHNUCRUZITO [id number] [place] [address] [place] Immature granulocytes (Bld) [#/Vol] 0.04 10*3/uL Normal <0.10 [facility] Comment on above: Order Comment: Speci men Type: BLOOD SPECIMENOrdering Facility: [facility] Address: [address] [place] [address] Performed By: #### 5 7021-8 ####[facility] [id number] [place] [address] [place] Immature granulocytes/100 WBC (Bld) 0.5 % Normal [facility] Comment on above: Order Comment: Speci men Type: BLOOD SPECIMENOrdering Facility: [facility] Address: [address] [place] [address] Performed By: #### 5 7021-8 ####[facility] [id number] [place] [address] [place] Lymphocytes (Bld) [#/Vol] 1.55 10*3/uL Normal 1.00-4.00 [facility] Comment on above: Order Comment: Speci men Type: BLOOD SPECIMENOrdering Facility: [facility] Address: [address] [place] [address] Performed By: #### 5 7021-8 ####[facility] [id number] [place] [address] [place] Lymphocytes/100 WBC (Bld) 19.9 % Normal [facility] Comment on above: Order Comment: Speci men Type: BLOOD SPECIMENOrdering Facility: [facility] Address: [address] [place] [address] Performed By: #### 5 7021-8 ####[facility]PITALNCLIA [id number] [place] [address] [place] MCH (RBC) [Entitic mass] 29.8 pg Normal 26.0-34.0 [facility] Comment on above: Order Comment: Speci men Type: BLOOD SPECIMENOrdering Facility: [facility] Address: [address] [place] [address] Performed By: #### 5 7021-8 ####[facility] [id number] [place] [address] [place] MCHC (RBC) [Mass/Vol] 32.8 g/dL Normal 30.5-36.0 [facility] Comment on above: Order Comment: Speci men Type: BLOOD SPECIMENOrdering Facility: [facility] Address: [address] [place] [address] Performed By: #### 5 7021-8 ####[facility] [id number] [place] [address] [place] MCV (RBC) [Entitic vol] 90.6 fL Normal 80.0-100.0 [facility] Comment on above: Order Comment: Speci men Type: BLOOD SPECIMENOrdering Facility: [facility] Address: [address] [place] [address] Performed By: #### 5 7021-8 ####[facility] [id number] [place] [address] [place] Monocytes (Bld) [#/Vol] 1.15 10*3/uL High <0.87 [facility] Comment on above: Order Comment: Speci men Type: BLOOD SPECIMENOrdering Facility: [facility] Address: [address] [place] [address] Performed By: #### 5 7021-8 ####[facility] [id number] [place] [address] [place] Monocytes/100 WBC (Bld) 14.8 % Normal [facility] Comment on above: Order Comment: Speci men Type: BLOOD SPECIMENOrdering Facility: [facility] Address: [address] [place] [address] Performed By: #### 5 7021-8 ####[facility]ITALNCLIA [id number] [place] [address] [place] Neutrophils (Bld) [#/Vol] 4.69 10*3/uL Normal 1.45-7.50 [facility] Comment on above: Order Comment: Speci men Type: BLOOD SPECIMENOrdering Facility: [facility] Address: [address] [place] [address] Performed By: #### 5 7021-8 ####[facility] [id number] [place] [address] [place] Neutrophils/100 WBC (Bld) 60.2 % Normal [facility] Comment on above: Order Comment: Speci men Type: BLOOD SPECIMENOrdering Facility: [facility] Address: [address] [place] [address] Performed By: #### 5 7021-8 ####[facility] [id number] [place] [address] [place] Nucleated RBC (Bld) [#/Vol] 10*3/uL Normal <0.01 [facility] Comment on above: Order Comment: Speci men Type: BLOOD SPECIMENOrdering Facility: [facility] Address: [address] [place] [address] Performed By: #### 5 7021-8 ####[facility]ITALLIA [id number] [place] [address] [place] Nucleated RBC/100 WBC (Bld) [Ratio] 0.0 /100 WBC Normal [facility] Comment on above: Order Comment: Speci men Type: BLOOD SPECIMENOrdering Facility: [facility] Address: [address] [place] [address] Performed By: #### 5 7021-8 ####[facility] [id number] [place] [address] [place] Platelet mean volume (Bld) [Entitic vol] 10.3 fL Normal 9.0-12.7 [facility] Comment on above: Order Comment: Speci men Type: BLOOD SPECIMENOrdering Facility: [facility] Address: [address] [place] [address] Performed By: #### 5 7021-8 ####[facility] HOSPITALKALIELetha [id number] [place] [address] [place] Platelets (Bld) [#/Vol] 173 10*3/uL Normal 150-400 [facility] Comment on above: Order Comment: Speci men Type: BLOOD SPECIMENOrdering Facility: [facility] Address: [address] [place] [address] Performed By: #### 5 7021-8 ####[facility] HOSPITALNCCALDERONA [id number] [place] [address] [place] RBC (Bld) [#/Vol] 2.99 10*6/uL Low 3.90-5.20 [facility] Comment on above: Order Comment: Speci men Type: BLOOD SPECIMENOrdering Facility: [facility] Address: [address] [place] [address] Performed By: #### 5 7021-8 ####[facility]ITAL[facility]CL[facility] [id number] [place] [address] [place] WBC (Bld) [#/Vol] 7.79 10*3/uL Normal 3.70-11.00 [facility] Comment on above: Order Comment: Speci men Type: BLOOD SPECIMENOrdering Facility: [facility] Address: [address] [place] [address] Performed By: #### 5 7021-8 ####[facility]ITALNCLIA [id number] [place] [address] [place] CEA SerPl-mCncon 12-27-2024 Carcinoembryonic Ag [Mass/Vol] 39.1 ng/mL High <=2.9 [facility] Comment on above: Order Comment: Speci men Type: BLOOD SPECIMENOrdering Facility: [facility] Address: [address] [place] [address] Result Comment: Carc inoembryonic antigen test is used as an aid in monitoring response to treatment or recurrence in patients with established colorectal, breast, lung, prostatic, pancreatic, and ovarian carcinomas. Clinical correlation is required.The Carcinoembryonic antigen test was performed using the [employer] DXI paramagnetic particle chemiluminescent immunoassay method. Results obtained with different assay methods or kits cannot be used interchangeably. Performed By: #### 2 039-6 ####[facility] LABCLIA [id number] [place] [address] [place] CNOVSPon 12-27-2024 CNOVSP Normal [facility] Comprehensive metabolic 2000 panelon 12-27-2024 Albumin [Mass/Vol] 3.3 g/dL Low 3.9-4.9 [facility] Comment on above: Order Comment: Speci men Type: BLOOD SPECIMENOrdering Facility: [facility] Address: [address] [place] [address] Performed By: #### 1 9123-9, 56005-3 ####[facility] IBSHNUWNCLIA [id number] [place] [address] [place] ALP [Catalytic activity/Vol] 95 U/L Normal 34-123 [facility] Comment on above: Order Comment: Speci men Type: BLOOD SPECIMENOrdering Facility: [facility] Address: [address] [place] [address] Performed By: #### 1 9123-9, 95970-1 ####[facility]ITALTOWNCLIA [id number] [place] [address] [place] ALT [Catalytic activity/Vol] 5 U/L Low 7-38 [facility] Comment on above: Order Comment: Speci men Type: BLOOD SPECIMENOrdering Facility: [facility] Address: [address] [place] [address] Performed By: #### 1 9123-9, 47123-3 ####[facility] MILLTOWNCLIA [id number] [place] [address] [place] Anion gap [Moles/Vol] 11 mmol/L Normal 8-15 [facility] Comment on above: Order Comment: Speci men Type: BLOOD SPECIMENOrdering Facility: [facility] Address: [address] [place] [address] Performed By: #### 1 9123-9, 80998-5 ####[facility] MILLWNCLIA [id number] [place] [address] [place] AST [Catalytic activity/Vol] 20 U/L Normal 13-35 [facility] Comment on above: Order Comment: Speci men Type: BLOOD SPECIMENOrdering Facility: [facility] Address: [address] [place] [address] Performed By: #### 1 9123-9, 89928-3 ####[facility] MILLWNCLIA [id number] [place] [address] [place] Bilirubin [Mass/Vol] 0.3 mg/dL Normal 0.2-1.3 [facility] Comment on above: Order Comment: Speci men Type: BLOOD SPECIMENOrdering Facility: [facility] Address: [address] [place] [address] Performed By: #### 1 9123-9, 71495-1 ####[facility] MILLWNCLIA [id number] [place] [address] [place] Calcium [Mass/Vol] 9.2 mg/dL Normal 8.5-10.2 [facility] Comment on above: Order Comment: Speci men Type: BLOOD SPECIMENOrdering Facility: [facility] Address: [address] [place] [address] Performed By: #### 1 9123-9, 61933-4 ####[facility] MILLTOWNCLIA [id number] [place] [address] [place] Chloride [Moles/Vol] 102 mmol/L Normal 98-107 [facility] Comment on above: Order Comment: Speci men Type: BLOOD SPECIMENOrdering Facility: [facility] Address: [address] [place] [address] Performed By: #### 1 9123-9, 38394-7 ####[facility] MILLTOWNCLIA [id number] [place] [address] [place] CO2 [Moles/Vol] 23 mmol/L Normal 22-30 [facility] Comment on above: Order Comment: Speci men Type: BLOOD SPECIMENOrdering Facility: [facility] Address: [address] [place] [address] Performed By: #### 1 9123-9, 18361-8 ####[facility] MILLWNCLIA [id number] [place] [address] [place] Creatinine [Mass/Vol] 0.61 mg/dL Normal 0.58-0.96 [facility] Comment on above: Order Comment: Speci men Type: BLOOD SPECIMENOrdering Facility: [facility] Address: [address] [place] [address] Performed By: #### 1 9123-9, 55102-3 ####[facility] MILLTOWNCLIA [id number] [place] [address] [place] eGFRcr SerPlBld CKD-EPI 2020 99 mL/min/1.73m??? Normal >=60 [facility] Comment on above: Order Comment: Umesh baugh Type: BLOOD SPECIMENOrdering Facility: [facility] Address: [address] [place] [address] Result Comment: Sana mated Glomerular Filtration Rate [...] actual GFR. Performed By: #### 1 9123-9, 73367-3 ####[facility] [id number] [place] [address] [place] Glucose [Mass/Vol] 90 mg/dL Normal 74-99 [facility] Comment on above: Order Comment: Umesh baugh Type: BLOOD SPECIMENOrdering Facility: [facility] Address: [address] [place] [address] Result Comment: The [place] [employer] (ADA) provides guidance for cutoff [...] Standards of Medical Care in Diabetes 2016, [place] [employer]. Diabetes Care. 2016.39(Suppl 1). Performed By: #### 1 9123-9, 65072-1 ####[facility] [id number] [place] [address] [place] Potassium [Moles/Vol] 3.7 mmol/L Normal 3.7-5.1 [facility] Comment on above: Order Comment: Speci men Type: BLOOD SPECIMENOrdering Facility: [facility] Address: [address] [place], [place] [id number] Performed By: #### 1 9123-9, 22228-8 ####[facility] BISHNUJUSTINWNCLIA [id number] [place] [address] [place] Protein [Mass/Vol] 6.4 g/dL Normal 6.3-8.0 [facility] Comment on above: Order Comment: Speci men Type: BLOOD SPECIMENOrdering Facility: [facility] Address: [address] [place] [address] Performed By: #### 1 9123-9, 82476-7 ####[facility]ITALJUSTINGUMEA [id number] [place] [address] [place] Sodium [Moles/Vol] 136 mmol/L Normal 136-144 [facility] Comment on above: Order Comment: Speci men Type: BLOOD SPECIMENOrdering Facility: [facility] Address: [address] [place] [address] Performed By: #### 1 9123-9, 50455-6 ####[facility]OSPITALJUSTINGUMEA [id number] [place] [address] [place] Urea nitrogen [Mass/Vol] 16 mg/dL Normal 7-21 [facility] Comment on above: Order Comment: Speci men Type: BLOOD SPECIMENOrdering Facility: [facility] Address: [address] [place] [address] Performed By: #### 1 9123-9, 74098-9 ####[facility]ITALNCLIA [id number] [place] [address] [place] Magnesium SerPl-mCncon 12-27 Magnesium [Mass/Vol] 1.7 mg/dL Normal 1.7-2.3 [facility] Comment on above: Order Comment: Speci men Type: BLOOD SPECIMENOrdering Facility: [facility] Address: [address] [id number] Performed By: #### 1 9123-9, 89867-0 ####[facility] [id number] [place] [address] [place] CNPNon 12-26-2024 CNPN Normal [facility] CNCNPATEDon 12-24-2024 CNCNPATED Normal [facility] CNPNon 12-18-2024 CNPN Normal [facility] Abdomen/Pelvis W IV Cont ONL Yon 12-17-2024 Abdomen/Pelvis W IV Cont ONLY Normal [facility] Absolute lymphocyte countOrd ered By: Johnny Colunga on 12-17-2024 Lymphocytes Auto (Unsp spec) [#/Vol] 0.88 10*3/uL 0.83-4.51 [facility] Anion gap in Serum or Plasma Ordered By: Johnny Colunga on 12-17-2024 Anion gap [Moles/Vol] 11 mmol/L 5-15 [facility] Automated lymphocyte count a s percentage of total leukocytesOrdered By: Johnny Colunga on 12-17-2024 Lymphocytes/100 WBC Auto (Unsp spec) 7.5 % Low 19-41 [facility] BUN/creatinine ratioOrdered By: Johnny Colunga on 12-17-2024 Urea nitrogen/Creatinine [Mass ratio] 35.0 mg/mg High 10-20 [facility] Basophil percentageOrdered B y: Johnny Colunga on 12-17-2024 Basophils/100 WBC (Bld) 0.2 % 0-1 [facility] Bilirubin Test strip Ql (U)O rdered By: Johnny Colunga on 12-17-2024 Bilirubin Ql (U) Negative Negative [facility] Bilirubin, totalOrdered By: Johnny Colunga on 12-17-2024 Bilirubin [Mass/Vol] 0.19 mg/dL 0.00-1.30 [facility] CBC W/Diff, Automatedon 11-26 Absolute Lymph 0.88 X10 3/uL Normal 0.83-4.51 [facility] Comment on above: Performed By: #### L 503.6005, L100.0100, L501.2450, L500.4050 ####[facility] [address] [place], [address] Absolute Neut 9.7 X10 3/uL High 2.0-7.7 [facility] Comment on above: Performed By: #### L 503.6005, L100.0100, L501.2450, L500.4050 ####[facility] [address] [place], [address] Basophils/100 WBC (Bld) 0.2 % Normal 0-1 [facility] Comment on above: Performed By: #### L 503.6005, L100.0100, L501.2450, L500.4050 ####[facility] [address] [place], [address] Eosinophils/100 WBC (Bld) 0.0 % Normal 0-5 [facility] Comment on above: Performed By: #### L 503.6005, L100.0100, L501.2450, L500.4050 ####[facility] [address] [place], [address] Erythrocyte distribution width (RBC) [Ratio] 16.3 % High 11.6-14.6 [facility] Comment on above: Performed By: #### L 503.6005, L100.0100, L501.2450, L500.4050 ####[facility] [address] [place], [address] Hematocrit (Bld) [Volume fraction] 28.2 % Low 37-47 [facility] Comment on above: Performed By: #### L 503.6005, L100.0100, L501.2450, L500.4050 ####[facility] [address] [place], [address] Hemoglobin (Bld) [Mass/Vol] 9.1 g/dL Low 12.0-15.0 [facility] Comment on above: Performed By: #### L 503.6005, L100.0100, L501.2450, L500.4050 ####[facility] [address] [place], [address] IG% 0.500 Normal 0.0-0.9 [facility] Comment on above: Result Comment: IG% - Immature Granulocytes (promyelocytes, myelocytes andmetamyelocytes) > 1% indicates that a LEFT SHIFT is Present. Performed By: #### L 503.6005, L100.0100, L501.2450, L500.4050 ####[facility] [address] [place], [address] Lymphocytes/100 WBC (Bld) 7.5 % Low 19-41 [facility] Comment on above: Performed By: #### L 503.6005, L100.0100, L501.2450, L500.4050 ####[facility] [address] [place], [address] MCH (RBC) [Entitic mass] 28.9 pg Normal 27.0-32.0 [facility] Comment on above: Performed By: #### L 503.6005, L100.0100, L501.2450, L500.4050 ####[facility] [address] [place], [address] MCHC (RBC) [Mass/Vol] 32.3 g/dL Normal 32-36 [facility] Comment on above: Performed By: #### L 503.6005, L100.0100, L501.2450, L500.4050 ####[facility] [address] [place], [address] MCV (RBC) [Entitic vol] 89.5 fL Normal 81-99 [facility] Comment on above: Performed By: #### L 503.6005, L100.0100, L501.2450, L500.4050 ####[facility] [address] [place], [address] Monocytes/100 WBC (Bld) 9.4 % Normal 0-10 [facility] Comment on above: Performed By: #### L 503.6005, L100.0100, L501.2450, L500.4050 ####[facility] [address] [place], [address] Neutrophils/100 WBC (Bld) 82.4 % High 47-70 [facility] Comment on above: Performed By: #### L 503.6005, L100.0100, L501.2450, L500.4050 ####[facility] [address] [place], [address] Nucleated RBC (Bld) [#/Vol] 0 10*3/uL Normal 0-5 [facility] Comment on above: Performed By: #### L 503.6005, L100.0100, L501.2450, L500.4050 ####[facility] [address] [place], [address] Platelet mean volume (Bld) [Entitic vol] 10.1 fL Normal 6.2-12.0 [facility] Comment on above: Performed By: #### L 503.6005, L100.0100, L501.2450, L500.4050 ####[facility] [address] [place], [address] Platelets (Bld) [#/Vol] 325 10*3/uL Normal 150-450 [facility] Comment on above: Performed By: #### L 503.6005, L100.0100, L501.2450, L500.4050 ####[facility] [address] [place], [address] RBC (Bld) [#/Vol] 3.15 10*6/uL Low 4.2-5.4 [facility] Comment on above: Performed By: #### L 503.6005, L100.0100, L501.2450, L500.4050 ####[facility] [address] [place], [address] RDW SD 52.9 fl High 35.1-43.9 [facility] Comment on above: Performed By: #### L 503.6005, L100.0100, L501.2450, L500.4050 ####[facility] [address] [place], [address] WBC (Bld) [#/Vol] 11.8 10*3/uL High 4.4-11.0 [facility] Comment on above: Performed By: #### L 503.6005, L100.0100, L501.2450, L500.4050 ####[facility] [address] [place], [address] CNPNon 12-17-2024 CNPN Normal [facility] Carbon dioxide, total [Moles /volume] in Central venous bloodOrdered By: Johnny Colunga on 12-17-2024 CO2 [Moles/Vol] 23.1 mmol/L 21.0-32.0 [facility] Chloride assayOrdered By: Ty Colunga on 12-17-2024 Chloride [Moles/Vol] 101 mmol/L 98-108 [facility] Comprehensive Metabolic Prof ilon 12-17-2024 Albumin [Mass/Vol] 3.4 g/dL Normal 3.4-4.8 [facility] Comment on above: Performed By: #### L 503.6005, L100.0100, L501.2450, L500.4050 ####[facility] [address] [place], [address] Albumin/Globulin [Mass ratio] 1.1 {ratio} Normal 0.9-2.4 [facility] Comment on above: Performed By: #### L 503.6005, L100.0100, L501.2450, L500.4050 ####[facility] [address] [place], [address] ALK PHOS 109 U/L High 35-104 [facility] Comment on above: Performed By: #### L 503.6005, L100.0100, L501.2450, L500.4050 ####[facility] [address] [place], [address] ALT [Catalytic activity/Vol] 9 U/L Normal <=34 [facility] Comment on above: Performed By: #### L 503.6005, L100.0100, L501.2450, L500.4050 ####[facility] [address] [place], [address] AST [Catalytic activity/Vol] 25 U/L Normal <=31 [facility] Comment on above: Performed By: #### L 503.6005, L100.0100, L501.2450, L500.4050 ####[facility] [address] [place], [address] Bilirubin [Mass/Vol] 0.19 mg/dL Normal 0.00-1.30 [facility] Comment on above: Performed By: #### L 503.6005, L100.0100, L501.2450, L500.4050 ####[facility] [address] [place], [address] BUN/CRE 35.0 RATIO High 10-20 [facility] Comment on above: Performed By: #### L 503.6005, L100.0100, L501.2450, L500.4050 ####[facility] [address] [place], [address] Calcium [Mass/Vol] 9.0 mg/dL Normal 7.6-11.0 [facility] Comment on above: Performed By: #### L 503.6005, L100.0100, L501.2450, L500.4050 ####[facility] [address] [place], [address] Chloride [Moles/Vol] 101 mmol/L Normal 98-108 [facility] Comment on above: Performed By: #### L 503.6005, L100.0100, L501.2450, L500.4050 ####[facility] [address] [place], [address] CO2 [Moles/Vol] 23.1 mmol/L Normal 21.0-32.0 [facility] Comment on above: Performed By: #### L 503.6005, L100.0100, L501.2450, L500.4050 ####[facility] [address] [place], [address] Creatinine [Mass/Vol] 0.56 mg/dL Low 0.70-1.20 [facility] Comment on above: Performed By: #### L 503.6005, L100.0100, L501.2450, L500.4050 ####[facility] [address] [place], [address] ECRCL 42.50 ml/min Low 50-250 [facility] Comment on above: Performed By: #### L 503.6005, L100.0100, L501.2450, L500.4050 ####[facility] [address] [place], [address] GAP 11 Normal 5-15 [facility] Comment on above: Performed By: #### L 503.6005, L100.0100, L501.2450, L500.4050 ####[facility] [address] [place], [address] GFR/1.73 sq M.predicted among non-blacks MDRD (S/P/Bld) [Vol rate/Area] 101 mL/min/{1.73_m2} Normal >60 [facility] Comment on above: Result Comment: mL/m in/1.73m2 CKD-EPI Creatinine Equation (2020) Performed By: #### L 503.6005, L100.0100, L501.2450, L500.4050 ####[facility] [address] [place], [address] Globulin (S) [Mass/Vol] 3.0 g/dL Normal 2.2-4.2 [facility] Comment on above: Performed By: #### L 503.6005, L100.0100, L501.2450, L500.4050 ####[facility] [address] [place], [address] Glucose [Mass/Vol] 120 mg/dL High 70-99 [facility] Comment on above: Performed By: #### L 503.6005, L100.0100, L501.2450, L500.4050 ####[facility] [address] [place], [address] Potassium [Moles/Vol] 3.4 mmol/L Normal 3.3-5.1 [facility] Comment on above: Performed By: #### L 503.6005, L100.0100, L501.2450, L500.4050 ####[facility] [address] [place], [address] Sodium [Moles/Vol] 136 mmol/L Normal 133-145 [facility] Comment on above: Performed By: #### L 503.6005, L100.0100, L501.2450, L500.4050 ####[facility] [address] [place], [address] T PROT 6.4 g/dL Normal 5.9-8.4 [facility] Comment on above: Performed By: #### L 503.6005, L100.0100, L501.2450, L500.4050 ####[facility] [address] [place], [address] Urea nitrogen [Mass/Vol] 20 mg/dL High 4-19 [facility] Comment on above: Performed By: #### L 503.6005, L100.0100, L501.2450, L500.4050 ####[facility] [address] [place], [address] Emergency Department Summary on 12-17-2024 Emergency Department Summary Normal [facility] Eosinophil percentageOrdered By: Johnny Colunga on 12-17-2024 Eosinophils/100 WBC (Bld) 0.0 % 0-5 [facility] Erythrocyte distribution wid th ratioOrdered By: [facility] on 12-17-2024 Erythrocyte distribution width (RBC) [Ratio] 16.3 % High 11.6-14.6 [facility] Erythrocyte distribution wid th standard deviationOrdered By: Volant Waldemar Mirza on 12-17-2024 Erythrocyte distribution width (RBC) [Ratio] 52.9 fl High 35.1-43.9 [facility] Glomerular filtration rate ( GFR) estimation/1.73 sq m using serum, plasma, or whole bOrdered By: Jonhny Colunga on 12-17-2024 GFR/1.73 sq M.predicted among non-blacks MDRD (S/P/Bld) [Vol rate/Area] 101 mL/min/{1.73_m2} >60 [facility] Hematocrit Auto (Bld) [Volum e fraction]Ordered By: Johnny Colunga on 12-17-2024 Hematocrit (Bld) [Volume fraction] 28.2 % Low 37-47 [facility] Hemoglobin measurementOrdere d By: Johnny Colunga on 12-17-2024 Hemoglobin (Bld) [Mass/Vol] 9.1 g/dL Low 12.0-15.0 [facility] Immature granulocytes/100 WB C Auto (Bld)Ordered By: Johnny Colunga on 12-17-2024 Immature granulocytes/100 WBC (Bld) 0.500 % 0.0-0.9 [facility] Ketones Test strip Ql (U)Ord ered By: Johnny Colunga on 12-17-2024 Ketones Ql (U) Negative Negative [facility] Lactic Acidon 12-17-2024 Lactate [Moles/Vol] 1.5 mmol/L Normal 0.0-2.0 [facility] Comment on above: Order Comment: Y Performed By: #### L 503.6005, L100.0100, L501.2450, L500.4050 ####[facility] [address] [place], [place], [address] Lipaseon 12-17-2024 Lipase [Catalytic activity/Vol] 165 U/L High 13-75 [facility] Comment on above: Result Comment: Efrem caldwell note:LIPASE revised reference range effective 22.New Lipase methodology. Expected to produce lower valuesthan the previous assay method.NEW Reference Range: 13 - 75 U/L Performed By: #### L 503.6005, L100.0100, L501.2450, L500.4050 ####[facility] [address] [place], [place], [address] MCV (mean corpuscular volume ) determinationOrdered By: Johnny Colunga on 12-17-2024 MCV (RBC) [Entitic vol] 89.5 fL 81-99 [facility] Mean corpuscular hemoglobin (MCH) determinationOrdered By: Johnny Colunga on 12-17-2024 MCH (RBC) [Entitic mass] 28.9 pg 27.0-32.0 [facility] Monocyte percentageOrdered B y: Johnny Colunga on 12-17-2024 Monocytes/100 WBC (Bld) 9.4 % 0-10 [facility] Mucus LM Ql (Urine sed)Order ed By: Johnny Colunga on 12-17-2024 Mucus Ql (Urine sed) 0 SEEN /hpf [facility] Neutrophil percentageOrdered By: Johnny Colunga on 12-17-2024 Neutrophils/100 WBC (Bld) 82.4 % High 47-70 [facility] Nitrite Test strip Ql (U)Ord ered By: Johnny Colunga on 12-17-2024 Nitrite Ql (U) Negative Negative [facility] No Panel InformationOrdered By: Johnny Colunga on 12-17-2024 25 U/L <32 [facility] Platelet countOrdered By: Ty Colunga on 12-17-2024 Platelets (Bld) [#/Vol] 325 10*3/uL 150-450 [facility] Potassium measurement (mass/ volume)Ordered By: Johnny Colunga on 12-17-2024 Potassium (Unsp spec) [Mass/Vol] 3.4 mmol/L 3.3-5.1 [facility] Protein Test strip Ql (U)Ord ered By: Johnny Colunga on 12-17-2024 Protein Ql (U) 30 mg/dl High Negative [facility] RBC Auto (Bld) [#/Vol]Ordere d By: Johnny Colunga on 12-17-2024 RBC (Bld) [#/Vol] 3.15 10*6/uL Low 4.2-5.4 [facility] Serum creatinine measurement (mass/volume)Ordered By: Johnny Colunga on 12-17-2024 Creatinine [Mass/Vol] 0.56 mg/dL Low 0.70-1.20 [facility] Serum globulin measurementOr dered By: Johnny Colunga on 12-17-2024 Globulin (S) [Mass/Vol] 3.0 g/dL 2.2-4.2 [facility] Serum glucose measurement (m ass/volume)Ordered By: Johnny Colunga on 09-23-2025 Glucose [Mass/Vol] 120 mg/dL High 70-99 [facility] Serum or plasma alanine ramirez otransferase (ALT) measurementOrdered By: Johnny Colunga on 12-17-2024 ALT [Catalytic activity/Vol] 9 U/L <35 [facility] Serum or plasma albumin renetta urement (mass/volume)Ordered By: Johnny Mirza on 12-17-2024 Albumin [Mass/Vol] 3.4 g/dL 3.4-4.8 [facility] Serum or plasma albumin/glob ulin mass ratioOrdered By: Johnny Colunga on 12-17-2024 Albumin/Globulin [Mass ratio] 1.1 {ratio} 0.9-2.4 [facility] Serum or plasma alkaline marquez sphatase measurementOrdered By: Johnny Colunga on 12-17-2024 ALP [Catalytic activity/Vol] 109 U/L High 35-104 [facility] Serum or plasma calcium renetta urement (mass/volume)Ordered By: Johnny Mirza on 12-17-2024 Calcium [Mass/Vol] 9.0 mg/dL 7.6-11.0 [facility] Serum or plasma urea nitroge n measurement (mass/volume)Ordered By: Johnny Colunga on 12-17-2024 Urea nitrogen [Mass/Vol] 20 mg/dL High 4-19 [facility] Sodium levelOrdered By: Luc Colunga on 12-17-2024 Sodium [Moles/Vol] 136 mmol/L 133-145 [facility] Squamous epithelial cells de tection in urine sediment by light microscopyOrdered By: Johnny Colunga on 12-17-2024 Epithelial cells.squamous LM Ql (Urine sed) 0-5 SEEN /hpf - [facility] Total proteinOrdered By: Thomas Colunga on 12-17-2024 Protein [Mass/Vol] 6.4 g/dL 5.9-8.4 [facility] Urinalysis, Completeon 12-17 EPI,SQUAMOUS 0-5 SEEN Normal - [facility] Comment on above: Order Comment: COLLE CTOR TO SPECIFY Performed By: #### L 400.0001 ####[facility] [address] [place], [address] BACTERIA 0 SEEN Normal None Seen [facility] Comment on above: Order Comment: CARROLL CTOR TO SPECIFY Performed By: #### L 400.0001 ####[facility] [address] [place], [address] Mucus Ql (Urine sed) 0 SEEN Normal [facility] Comment on above: Order Comment: CARROLL CTOR TO SPECIFY Performed By: #### L 400.0001 ####[facility] [address] [place], [address] RBC 0 SEEN Normal 0-5 [facility] Comment on above: Order Comment: CARROLL CTOR TO SPECIFY Performed By: #### L 400.0001 ####[facility] [address] [place], [address] WBC 0 SEEN Normal 0-5 [facility] Comment on above: Order Comment: CARROLL CTOR TO SPECIFY Performed By: #### L 400.0001 ####[facility] [address] [place], [address] Urine clarityOrdered By: Thomas Colunga on 12-17-2024 Clarity (U) Clear Clear [facility] Urine color determinationOrd ered By: Johnny Colunga on 12-17-2024 Color (U) Yellow Yellow [facility] Urine glucose detectionOrder ed By: Johnny Colunga on 12-17-2024 Glucose Ql (U) Normal mg/dl Normal [facility] Urine leukocyte esterase det ection by dipstickOrdered By: Johnny Colunga on 12-17-2024 Leukocyte esterase Test strip Ql (U) Negative Negative [facility] Urine pHOrdered By: Johnny Langston on 12-17-2024 pH (U) 6.0 [pH] 5.0 - 8.0 [facility] Urine sediment bacteria coun t by microscopy (number/high power field)Ordered By: Johnny Colugna on 12-17-2024 Bacteria LM.HPF (Urine sed) [#/Area] 0 /[HPF] None Seen [facility] Urine specific gravity measu rementOrdered By: Johnny Colunga on 12-17-2024 Specific gravity (U) [Rel density] 1.010 1.002-1.03 0 [facility] Urine urobilinogen measureme ntOrdered By: Volant Cristine on 12-17-2024 Urobilinogen Ql (U) Normal mg/dl Normal [facility] White blood cell (WBC) count Ordered By: Johnny Colunga on 12-17-2024 WBC (Bld) [#/Vol] 11.8 10*3/uL High 4.4-11.0 [facility] White blood cell countOrdere d By: Johnny Colunga on 12-17-2024 White blood cell count 0 SEEN /hpf 0-5 [facility] CNPNon 12-16-2024 CNPN Normal [facility] CBC W Auto Differential pane l (Bld)on 12-13-2024 Basophils (Bld) [#/Vol] 0.09 10*3/uL Normal <0.11 [facility] Comment on above: Order Comment: Speci men Type: BLOOD SPECIMENOrdering Facility: [facility] Address: [address] [place] [address] Performed By: #### 5 7021-8 ####[facility] [id number] [place] [address] [place] Basophils/100 WBC (Bld) 1.2 % Normal [facility] Comment on above: Order Comment: Speci men Type: BLOOD SPECIMENOrdering Facility: [facility] Address: [address] [place] [address] Performed By: #### 5 7021-8 ####[facility] [id number] [place] [address] [place] Differential cell count method Nom (Bld) Auto Normal [facility] Comment on above: Order Comment: Speci men Type: BLOOD SPECIMENOrdering Facility: [facility] Address: [address] [place] [address] Performed By: #### 5 7021-8 ####[facility] [id number] [place] [address] [place] Eosinophils (Bld) [#/Vol] 0.10 10*3/uL Normal <0.46 [facility] Comment on above: Order Comment: Speci men Type: BLOOD SPECIMENOrdering Facility: [facility] Address: [address] [place] [address] Performed By: #### 5 7021-8 ####[facility] [id number] [place] [address] [place] Eosinophils/100 WBC (Bld) 1.4 % Normal [facility] Comment on above: Order Comment: Speci men Type: BLOOD SPECIMENOrdering Facility: [facility] Address: [address] [place] [address] Performed By: #### 5 7021-8 ####[facility]NCM[facility] [id number] [place] [address] [place] Erythrocyte distribution width (RBC) [Ratio] 15.3 % High 11.5-15.0 [facility] Comment on above: Order Comment: Speci men Type: BLOOD SPECIMENOrdering Facility: [facility] Address: [address] [place] [address] Performed By: #### 5 7021-8 ####[facility]ITALNCLI [id number] [place] [address] [place] Hematocrit (Bld) [Volume fraction] 26.3 % Low 36.0-46.0 [facility] Comment on above: Order Comment: Speci men Type: BLOOD SPECIMENOrdering Facility: [facility] Address: [address] [place] [address] Performed By: #### 5 7021-8 ####[facility] BISHNUWINSTON SALEMFUAD [id number] [place] [address] [place] Hemoglobin (Bld) [Mass/Vol] 8.7 g/dL Low 11.5-15.5 [facility] Comment on above: Order Comment: Speci men Type: BLOOD SPECIMENOrdering Facility: [facility] Address: [address] [place] [address] Performed By: #### 5 7021-8 ####[facility] [id number] [place] [address] [place] Immature granulocytes (Bld) [#/Vol] 0.06 10*3/uL Normal <0.10 [facility] Comment on above: Order Comment: Speci men Type: BLOOD SPECIMENOrdering Facility: [facility] Address: [address] [place] [address] Performed By: #### 5 7021-8 ####[facility] [id number] [place] [address] [place] Immature granulocytes/100 WBC (Bld) 0.8 % Normal [facility] Comment on above: Order Comment: Speci men Type: BLOOD SPECIMENOrdering Facility: [facility] Address: [address] [place] [address] Performed By: #### 5 7021-8 ####[facility] [id number] [place] [address] [place] Lymphocytes (Bld) [#/Vol] 1.53 10*3/uL Normal 1.00-4.00 [facility] Comment on above: Order Comment: Speci men Type: BLOOD SPECIMENOrdering Facility: [facility] Address: [address] [place] [address] Performed By: #### 5 7021-8 ####[facility] BISHNUROMMELA [id number] [place] [address] [place] Lymphocytes/100 WBC (Bld) 21.1 % Normal [facility] Comment on above: Order Comment: Speci men Type: BLOOD SPECIMENOrdering Facility: [facility] Address: [address] [place] [address] Performed By: #### 5 7021-8 ####[facility]OSPITALFUAD [id number] [place] [address] [place] MCH (RBC) [Entitic mass] 29.3 pg Normal 26.0-34.0 [facility] Comment on above: Order Comment: Speci men Type: BLOOD SPECIMENOrdering Facility: [facility] Address: [address] [place] [address] Performed By: #### 5 7021-8 ####[facility] [id number] [place] [address] [place] [facility] MCHC (RBC) [Mass/Vol] 33.1 g/dL Normal 30.5-36.0 [facility] Comment on above: Order Comment: Speci men Type: BLOOD SPECIMENOrdering Facility: [facility] Address: [address] [place] [address] Performed By: #### 5 7021-8 ####[facility]PITALKELSIE [id number] [place] [address] [place] MCV (RBC) [Entitic vol] 88.6 fL Normal 80.0-100.0 [facility] Comment on above: Order Comment: Speci men Type: BLOOD SPECIMENOrdering Facility: [facility] Address: [address] [place] [address] Performed By: #### 5 7021-8 ####[facility] HOSPITALNCLI [id number] [place] [address] [place] Monocytes (Bld) [#/Vol] 0.74 10*3/uL Normal <0.87 [facility] Comment on above: Order Comment: Speci men Type: BLOOD SPECIMENOrdering Facility: [facility] Address: [address] [place] [address] Performed By: #### 5 7021-8 ####[facility]ITALNCLIA [id number] [place] [address] [place] Monocytes/100 WBC (Bld) 10.2 % Normal [facility] Comment on above: Order Comment: Speci men Type: BLOOD SPECIMENOrdering Facility: [facility] Address: [address] [place] [address] Performed By: #### 5 7021-8 ####[facility] HOSPITALNCA [id number] [place] [address] [place] Neutrophils (Bld) [#/Vol] 4.72 10*3/uL Normal 1.45-7.50 [facility] Comment on above: Order Comment: Speci men Type: BLOOD SPECIMENOrdering Facility: [facility] Address: [address] [place] [address] Performed By: #### 5 7021-8 ####[facility]ITALA [id number] [place] [address] [place] Neutrophils/100 WBC (Bld) 65.3 % Normal [facility] Comment on above: Order Comment: Speci men Type: BLOOD SPECIMENOrdering Facility: [facility] Address: [address] [place] [address] Performed By: #### 5 7021-8 ####[facility]OS[facility]ITALA [id number] [place] [address] [place] Nucleated RBC (Bld) [#/Vol] 10*3/uL Normal <0.01 [facility] Comment on above: Order Comment: Speci men Type: BLOOD SPECIMENOrdering Facility: [facility] Address: [address] [place] [address] Performed By: #### 5 7021-8 ####[facility] BISHNUCRUZITO [id number] [place] [address] [place] Nucleated RBC/100 WBC (Bld) [Ratio] 0.0 /100 WBC Normal [facility] Comment on above: Order Comment: Speci men Type: BLOOD SPECIMENOrdering Facility: [facility] Address: [address] [place] [address] Performed By: #### 5 7021-8 ####[facility] HOSPITALNCKELSIE [id number] [place] [address] [place] Platelet mean volume (Bld) [Entitic vol] 9.5 fL Normal 9.0-12.7 [facility] Comment on above: Order Comment: Speci men Type: BLOOD SPECIMENOrdering Facility: [facility] Address: [address] [place] [address] Performed By: #### 5 7021-8 ####[facility] HOSPITALNCA [id number] [place] [address] [place] Platelets (Bld) [#/Vol] 282 10*3/uL Normal 150-400 [facility] Comment on above: Order Comment: Speci men Type: BLOOD SPECIMENOrdering Facility: [facility] Address: [address] [place] [address] Performed By: #### 5 7021-8 ####[facility]PITALNCLIA [id number] [place] [address] [place] RBC (Bld) [#/Vol] 2.97 10*6/uL Low 3.90-5.20 [facility] Comment on above: Order Comment: Speci men Type: BLOOD SPECIMENOrdering Facility: [facility] Address: [address] [place] [address] Performed By: #### 5 7021-8 ####[facility] BISHNUTOWNCLIA [id number] [place] [address] [place] WBC (Bld) [#/Vol] 7.24 10*3/uL Normal 3.70-11.00 [facility] Comment on above: Order Comment: Speci men Type: BLOOD SPECIMENOrdering Facility: [facility] Address: [address] [place] [address] Performed By: #### 5 7021-8 ####[facility]ITALNCLIA [id number] [place] [address] [place] CEA SerPl-nc 12-13-2024 Carcinoembryonic Ag [Mass/Vol] 29.1 ng/mL High <=2.9 [facility] Comment on above: Order Comment: Speci men Type: BLOOD SPECIMENOrdering Facility: [facility] Address: [address] [place] [address] Result Comment: Carc inoembryonic antigen test is used as an aid in monitoring response to treatment or recurrence in patients with established colorectal, breast, lung, prostatic, pancreatic, and ovarian carcinomas. Clinical correlation is required.The Carcinoembryonic antigen test was performed using the [employer] [place] [employer] DXI paramagnetic particle chemiluminescent immunoassay method. Results obtained with different assay methods or kits cannot be used interchangeably. Performed By: #### 2 039-6 ####[facility] LABCLIA [id number] [place] [address] [place] CNOVSPon 12-13-2024 CNOVSP Normal [facility] Comprehensive metabolic 2000 panelon 12-13-2024 Albumin [Mass/Vol] 3.3 g/dL Low 3.9-4.9 [facility] Comment on above: Order Comment: Speci men Type: BLOOD SPECIMENOrdering Facility: [facility] Address: [address] [place] [address] Performed By: #### 2 4323-8, 26490-5 ####[facility]OS[facility]ITALA [id number] [place] [address] [place] ALP [Catalytic activity/Vol] 127 U/L High 34-123 [facility] Comment on above: Order Comment: Speci men Type: BLOOD SPECIMENOrdering Facility: [facility] Address: [address] [place] [address] Performed By: #### 2 4323-8, 35435-0 ####[facility] ERWGUMEA [id number] [place] [address] [place] ALT [Catalytic activity/Vol] 7 U/L Normal 7-38 [facility] Comment on above: Order Comment: Speci men Type: BLOOD SPECIMENOrdering Facility: [facility] Address: [address] [place] [address] Performed By: #### 2 4323-8, 08444-8 ####[facility] HOSPITALFUAD [id number] [place] [address] [place] Anion gap [Moles/Vol] 11 mmol/L Normal 8-15 [facility] Comment on above: Order Comment: Speci men Type: BLOOD SPECIMENOrdering Facility: [facility] Address: [address] [place] [address] Performed By: #### 2 4323-8, 42957-7 ####[facility]OSPITALFUAD [id number] [place] [address] [place] AST [Catalytic activity/Vol] 20 U/L Normal 13-35 [facility] Comment on above: Order Comment: Speci men Type: BLOOD SPECIMENOrdering Facility: [facility] Address: [address] [place] [address] Performed By: #### 2 4323-8, 52039-1 ####[facility]PITALNCLIA [id number] [place] [address] [place] Bilirubin [Mass/Vol] 0.2 mg/dL Normal 0.2-1.3 [facility] Comment on above: Order Comment: Speci men Type: BLOOD SPECIMENOrdering Facility: [facility] Address: [address] [place] [address] Performed By: #### 2 4323-8, ####[facility] HOSPITALNCKELSIE [id number] [place] [address] [place] Calcium [Mass/Vol] 9.1 mg/dL Normal 8.5-10.2 [facility] Comment on above: Order Comment: Speci men Type: BLOOD SPECIMENOrdering Facility: [facility] Address: [address] [place] [address] Performed By: #### 2 4323-8, ####[facility] HOSPITALLetha [id number] [place] [address] [place] Chloride [Moles/Vol] 101 mmol/L Normal 98-107 [facility] Comment on above: Order Comment: Speci men Type: BLOOD SPECIMENOrdering Facility: [facility] Address: [address] [place] [address] Performed By: #### 2 4323-8, ####[facility] HOSPITALFUAD [id number] [place] [address] [place] CO2 [Moles/Vol] 25 mmol/L Normal 22-30 [facility] Comment on above: Order Comment: Speci men Type: BLOOD SPECIMENOrdering Facility: [facility] Address: [address] [place] [address] Performed By: #### 2 4323-8, ####[facility] HOSPITALNCCALDERONA [id number] [place] [address] [place] Creatinine [Mass/Vol] 0.56 mg/dL Low 0.58-0.96 [facility] Comment on above: Order Comment: Speci men Type: BLOOD SPECIMENOrdering Facility: [facility] Address: [address] [place], [place] [address] Performed By: #### 2 4323-8, 66212-8 ####[facility]PITALLIA [id number] [place] [address] [place] eGFRcr SerPlBld CKD-EPI 2020 101 mL/min/1.73m??? Normal >=60 [facility] Comment on above: Order Comment: Umesh baugh Type: BLOOD SPECIMENOrdering Facility: [facility] Address: [address] [place] [address] Result Comment: Sana mated Glomerular Filtration Rate [...] actual GFR. Performed By: #### 2 4323-8, 56589-8 ####[facility]ITALL[facility] [id number] [place] [address] [place] Glucose [Mass/Vol] 113 mg/dL High 74-99 [facility] Comment on above: Order Comment: Umesh lupis Type: BLOOD SPECIMENOrdering Facility: [facility] Address: [address] [place] [address] Result Comment: The [place] [employer] (ADA) provides guidance for cutoff [...] Standards of Medical Care in Diabetes 2016, [place] [employer]. Diabetes Care. 2016.39(Suppl 1). Performed By: #### 2 4323-8, 60061-8 ####[facility] BISHNUMATTHEW [id number] [place] [address] [place] Potassium [Moles/Vol] 3.9 mmol/L Normal 3.7-5.1 [facility] Comment on above: Order Comment: Speci men Type: BLOOD SPECIMENOrdering Facility: [facility] Address: [address] [place] [address] Performed By: #### 2 4323-8, 06818-3 ####[facility] HOSPITALFUAD [id number] [place] [address] [place] Protein [Mass/Vol] 6.1 g/dL Low 6.3-8.0 [facility] Comment on above: Order Comment: Speci men Type: BLOOD SPECIMENOrdering Facility: [facility] Address: [address] [place] [address] Performed By: #### 2 4323-8, 69576-2 ####[facility] HOSPITALGUMEA [id number] [place] [address] [place] Sodium [Moles/Vol] 137 mmol/L Normal 136-144 [facility] Comment on above: Order Comment: Speci men Type: BLOOD SPECIMENOrdering Facility: [facility] Address: [address] [place] [address] Performed By: #### 2 4323-8, ####[facility] HOSPITALFUAD [id number] [place] [address] [place] Urea nitrogen [Mass/Vol] 17 mg/dL Normal 7-21 [facility] Comment on above: Order Comment: Speci men Type: BLOOD SPECIMENOrdering Facility: [facility] Address: [address] [place] [address] Performed By: #### 2 4323-8, ####[facility] MILLTOWNCLIA [id number] [place] [address] [place] Magnesium SerPl-mCncon 12-13 Magnesium [Mass/Vol] 1.9 mg/dL Normal 1.7-2.3 [facility] Comment on above: Order Comment: Speci men Type: BLOOD SPECIMENOrdering Facility: [facility] Address: [facility] [place] [address] Performed By: #### 2 4323-8, ####[facility] MILLTOWNCLIA [id number] [place] [address] [place] CNPNon 12-11-2024 CNPN Normal [facility] Basic metabolic 2000 panelOr dered By: Merlyn Veloz on 12-06-2024 Anion gap [Moles/Vol] 11 mmol/L 8 - 15 mmol/L [facility] Calcium [Mass/Vol] 9.0 mg/dL 8.5 - 10. 2 mg/dL [facility] Chloride [Moles/Vol] 95 mmol/L Low 98 - 10 7 mmol/L [facility] CO2 [Moles/Vol] 26 mmol/L 22 - 30 mmol/L [facility] Creatinine [Mass/Vol] 0.61 mg/dL 0.58 - 0.96 mg/dL [facility] GFR/1.73 sq M.predicted among non-blacks MDRD (S/P/Bld) [Vol rate/Area] 99 mL/min/{1.73_m2} - PINF [facility] Comment on above: Estimated Glomerular Filtration Rate [...] 123 mg/dL High 74 - 99 mg/dL [facility] Comment on above: The [place] Di[employer] Association (ADA) provides guidance for [...] Standards of Medical Care in Diabetes 2016, [place] [employer]. Diabetes Care. 2016.39(Suppl 1). Interpretation and review of laboratory results Abnormal [facility] Potassium [Moles/Vol] 3.2 mmol/L Low 3.7 - 5.1 mmol/L [facility] Sodium [Moles/Vol] 132 mmol/L Low 136 - 144 mmol/L [facility] Urea nitrogen [Mass/Vol] 12 mg/dL 7 - 21 mg/dL [facility] Basic metabolic 2000 panelon 12-06-2024 Anion gap [Moles/Vol] 11 mmol/L Normal 8-15 [facility] Comment on above: Order Comment: Speci men Type: BLOOD SPECIMENOrdering Facility: [facility] Address: [address] [place] [address] Performed By: #### 2 4321-2 ####[facility] [id number] [place] [address] [place] Calcium [Mass/Vol] 9.0 mg/dL Normal 8.5-10.2 [facility] Comment on above: Order Comment: Speci men Type: BLOOD SPECIMENOrdering Facility: [facility] Address: [address] [place] [address] Performed By: #### 2 4321-2 ####[facility] [id number] [place] [address] [place] Chloride [Moles/Vol] 95 mmol/L Low 98-107 [facility] Comment on above: Order Comment: Speci men Type: BLOOD SPECIMENOrdering Facility: [facility] Address: [address] [place], [place] [address] Performed By: #### 2 4321-2 ####[facility] LALYWNCLIA [id number] [place] [address] [place] CO2 [Moles/Vol] 26 mmol/L Normal 22-30 [facility] Comment on above: Order Comment: Speci men Type: BLOOD SPECIMENOrdering Facility: [facility] Address: [address] [place] [address] Performed By: #### 2 4321-2 ####[facility]CL[facility] [id number] [place] [address] [place] Creatinine [Mass/Vol] 0.61 mg/dL Normal 0.58-0.96 [facility] Comment on above: Order Comment: Speci men Type: BLOOD SPECIMENOrdering Facility: [facility] Address: [address] [place] [address] Performed By: #### 2 4321-2 ####[facility]ITALNCLIA [id number] [place] [address] [place] eGFRcr SerPlBld CKD-EPI 2020 99 mL/min/1.73m??? Normal >=60 [facility] Comment on above: Order Comment: Speci men Type: BLOOD SPECIMENOrdering Facility: [facility] Address: [address] [place] [address] Result Comment: Sana mated Glomerular Filtration Rate [...] actual GFR. Performed By: #### 2 4321-2 ####[facility] ERWNCLIA [id number] [place] [address] [place] Glucose [Mass/Vol] 123 mg/dL High 74-99 [facility] Comment on above: Order Comment: Speci men Type: BLOOD SPECIMENOrdering Facility: [facility] Address: [address] [place], [place] [address] Result Comment: The [place] [employer] (ADA) provides guidance for cutoff [...] Standards of Medical Care in Diabetes 2016, [place] [employer]. Diabetes Care. 2016.39(Suppl 1). Performed By: #### 2 4321-2 ####[facility] [id number] [place] [address] [place] Potassium [Moles/Vol] 3.2 mmol/L Low 3.7-5.1 [facility] Comment on above: Order Comment: Speci men Type: BLOOD SPECIMENOrdering Facility: [facility] Address: [address] [place] [address] Performed By: #### 2 4321-2 ####[facility]ITAL[facility] [id number] [place] [address] [place] Sodium [Moles/Vol] 132 mmol/L Low 136-144 [facility] Comment on above: Order Comment: Speci men Type: BLOOD SPECIMENOrdering Facility: [facility] Address: [address] [place], [place] [address] Performed By: #### 2 4321-2 ####[facility] [id number] [place] [address] [place] Urea nitrogen [Mass/Vol] 12 mg/dL Normal 7-21 [facility] Comment on above: Order Comment: Speci men Type: BLOOD SPECIMENOrdering Facility: [facility] Address: [facility] [place] [address] Performed By: #### 2 4321-2 ####[facility] CHRISTIAN GOETZBHC VALLE VIST[facility] HOSPITALKELSIE [id number] [place] [id number] [place] CBC W Auto Differential pane l (Bld)on 12-02-2024 Basophils (Bld) [#/Vol] 0.05 10*3/uL [facility] Basophils/100 WBC (Bld) 1.0 % [facility] Differential cell count method Nom (Bld) Manual [facility] Eosinophils (Bld) [#/Vol] 0.16 10*3/uL [facility] Eosinophils/100 WBC (Bld) 3.0 % [facility] Erythrocyte distribution width (RBC) [Ratio] 13.2 % 11.5 - 15.0 % [facility] Hematocrit (Bld) [Volume fraction] 27.3 % Low 36.0 - 46.0 % [facility] Hemoglobin (Bld) [Mass/Vol] 9.5 g/dL Low 11.5 - 15.5 g/dL [facility] Interpretation and review of laboratory results Abnormal [facility] Lymphocytes (Bld) [#/Vol] 1.66 10*3/uL [facility] Lymphocytes/100 WBC (Bld) 31.0 % [facility] MCH (RBC) [Entitic mass] 29.5 pg 26.0 - 34.0 pg [facility] MCHC (RBC) [Mass/Vol] 34.8 g/dL 30.5 - 36.0 g/dL [facility] MCV (RBC) [Entitic vol] 84.8 fL 80.0 - 100.0 fL [facility] Monocytes (Bld) [#/Vol] 1.39 10*3/uL High [facility] Monocytes/100 WBC (Bld) 26.0 % [facility] Myelo % 1.0 % [facility] Neutrophils (Bld) [#/Vol] 2.03 10*3/uL [facility] Neutrophils/100 WBC (Bld) 38.0 % [facility] Nucleated RBC (Bld) [#/Vol] NINF [facility] Nucleated RBC/100 WBC (Bld) [Ratio] 0.0 % /100 WBC [facility] Ovalocytes LM Ql (Bld) Few [facility] Platelet mean volume (Bld) [Entitic vol] 8.9 fL Low 9.0 - 12.7 fL [facility] Platelets (Bld) [#/Vol] 385 10*3/uL [facility] Platelets Estimate (Bld) [#/Vol] Adequate [facility] Polychromasia LM Ql (Bld) Slight [facility] RBC (Bld) [#/Vol] 3.22 10*6/uL Low 3.90 - 5.20 m/uL [facility] Red Cell Morph Reviewed: see result s of individual morphologies [facility] WBC (Bld) [#/Vol] 5.35 10*3/uL [facility] WBC Left Shift Ql (Bld) Present [facility] This is an appended report. These results have been appended to a previously verified report. [facility] Basophils (Bld) [#/Vol] 0.05 10*3/uL Normal <0.11 [facility] Comment on above: Order Comment: Speci men Type: BLOOD SPECIMENOrdering Facility: [facility] Address: [address] [place] [address] Performed By: #### 5 7021-8 ####[facility] [id number] [address] LABORATORYCLIA [id number] [address] STATES [facility] Basophils/100 WBC (Bld) 1.0 % Normal [facility] Comment on above: Order Comment: Speci men Type: BLOOD SPECIMENOrdering Facility: [facility] Address: [address] [place] [address] Performed By: #### 5 7021-8 ####[facility]ITALNCLIA [id number] [address] LABORATORYCLIA [id number] [place] [address] [place] Differential cell count method Nom (Bld) Manual Normal [facility] Comment on above: Order Comment: Speci men Type: BLOOD SPECIMENOrdering Facility: [facility] Address: [address] [place] [address] Performed By: #### 5 7021-8 ####[facility] MILLTOWNCLIA [id number] [address] LABORATORYCLIA [id number] [place] [address] [place] Eosinophils (Bld) [#/Vol] 0.16 10*3/uL Normal <0.46 [facility] Comment on above: Order Comment: Speci men Type: BLOOD SPECIMENOrdering Facility: [facility] Address: [address] [place] [address] Performed By: #### 5 7021-8 ####[facility] MILLTOWNCLIA [id number] [address] LABORATORYCLIA [id number] [place] [address] [place] Eosinophils/100 WBC (Bld) 3.0 % Normal [facility] Comment on above: Order Comment: Speci men Type: BLOOD SPECIMENOrdering Facility: [facility] Address: [address] [place] [address] Performed By: #### 5 7021-8 ####[facility] ERWNCLIA [id number] [address] LABORATORYCLIA [id number] [place] [address] [place] Erythrocyte distribution width (RBC) [Ratio] 13.2 % Normal 11.5-15.0 [facility] Comment on above: Order Comment: Speci men Type: BLOOD SPECIMENOrdering Facility: [facility] Address: [address] [place] [address] Performed By: #### 5 7021-8 ####[facility] MILLTOWNCLIA [id number] [address] LABORATORYCLIA [id number] [address] STATES OF [facility] Hematocrit (Bld) [Volume fraction] 27.3 % Low 36.0-46.0 [facility] Comment on above: Order Comment: Speci men Type: BLOOD SPECIMENOrdering Facility: [facility] Address: [address] [place] [address] Performed By: #### 5 7021-8 ####[facility] ERWNCLIA [id number] [address] LABORATORYCLIA [id number] [place] [address] [place] Hemoglobin (Bld) [Mass/Vol] 9.5 g/dL Low 11.5-15.5 [facility] Comment on above: Order Comment: Speci men Type: BLOOD SPECIMENOrdering Facility: [facility] Address: [address] [place] [address] Performed By: #### 5 7021-8 ####[facility] ERWNCLIA [id number] [address] LABORATORYCLIA [id number] [place] [address] [place] Lymphocytes (Bld) [#/Vol] 1.66 10*3/uL Normal 1.00-4.00 [facility] Comment on above: Order Comment: Speci men Type: BLOOD SPECIMENOrdering Facility: [facility] Address: [address] [place] [address] Performed By: #### 5 7021-8 ####[facility] MILLTOWNCLIA [id number] [address] [facility] LABORATORYCLIA [id number] [place] [address] [place] Lymphocytes/100 WBC (Bld) 31.0 % Normal [facility] Comment on above: Order Comment: Speci men Type: BLOOD SPECIMENOrdering Facility: [facility] Address: [address] [place] [address] Performed By: #### 5 7021-8 ####[facility] MILLTOWNCLIA [id number] [address] LABORATORYCLIA [id number] [place] [address] [place] MCH (RBC) [Entitic mass] 29.5 pg Normal 26.0-34.0 [facility] Comment on above: Order Comment: Speci men Type: BLOOD SPECIMENOrdering Facility: [facility] Address: [address] [place] [address] Performed By: #### 5 7021-8 ####[facility] MILLWTXLIA [id number] [address] LABORATORYCLIA [id number] [place] [address] [place] MCHC (RBC) [Mass/Vol] 34.8 g/dL Normal 30.5-36.0 [facility] Comment on above: Order Comment: Speci men Type: BLOOD SPECIMENOrdering Facility: [facility] Address: [address] [place] [address] Performed By: #### 5 7021-8 ####[facility] MILLWINSTON SALEMNCLIA [id number] [address] LABORATORYCLIA [id number] [address] [place] MCV (RBC) [Entitic vol] 84.8 fL Normal 80.0-100.0 [facility] Comment on above: Order Comment: Speci men Type: BLOOD SPECIMENOrdering Facility: [facility] Address: [address] [place] [address] Performed By: #### 5 7021-8 ####[facility] BISHNUJUSTINWNCLIA [id number] [address] LABORATORYCLIA [id number] [place] [address] [place] Monocytes (Bld) [#/Vol] 1.39 10*3/uL High <0.87 [facility] Comment on above: Order Comment: Speci men Type: BLOOD SPECIMENOrdering Facility: [facility] Address: [address] [place] [address] Performed By: #### 5 7021-8 ####[facility]ITALNCLIA [id number] [address] LABORATORYCLIA [id number] [place] [address] [place] Monocytes/100 WBC (Bld) 26.0 % Normal [facility] Comment on above: Order Comment: Speci men Type: BLOOD SPECIMENOrdering Facility: [facility] Address: [address] [place] [address] Performed By: #### 5 7021-8 ####[facility] BISHNUWNCLIA [id number] [address] LABORATORYCLIA [id number] [place] [address] [place] MYELO% 1.0 % Normal [facility] Comment on above: Order Comment: Speci men Type: BLOOD SPECIMENOrdering Facility: [facility] Address: [address] [place] [address] Performed By: #### 5 7021-8 ####[facility] ERWNCLIA [id number] [address] LABORATORYCLIA [id number] [place] [address] [place] Neutrophils (Bld) [#/Vol] 2.03 10*3/uL Normal 1.45-7.50 [facility] Comment on above: Order Comment: Speci men Type: BLOOD SPECIMENOrdering Facility: [facility] Address: [address] [place] [address] Performed By: #### 5 7021-8 ####[facility] MILLTOWNCLIA [id number] [address] LABORATORYCLIA [id number] [place] [address] [place] Neutrophils/100 WBC (Bld) 38.0 % Normal [facility] Comment on above: Order Comment: Speci men Type: BLOOD SPECIMENOrdering Facility: [facility] Address: [address] [place] [address] Performed By: #### 5 7021-8 ####[facility] MILLTOWNCLIA [id number] [address] LABORATORYCLIA [id number] [place] [address] [place] Nucleated RBC (Bld) [#/Vol] 10*3/uL Normal <0.01 [facility] Comment on above: Order Comment: Speci men Type: BLOOD SPECIMENOrdering Facility: [facility] Address: [address] [place] [address] Performed By: #### 5 7021-8 ####[facility] MILLTOWNCLIA [id number] [address] LABORATORYCLIA [id number] [place] [address] [place] Nucleated RBC/100 WBC (Bld) [Ratio] 0.0 /100 WBC Normal [facility] Comment on above: Order Comment: Speci men Type: BLOOD SPECIMENOrdering Facility: [facility] Address: [address] [place] [address] Performed By: #### 5 7021-8 ####[facility] MILLTOWNCLIA [id number] [address] LABORATORYCLIA [id number] [place] [address] [place] Ovalocytes LM Ql (Bld) Few Normal [facility] Comment on above: Order Comment: Speci men Type: BLOOD SPECIMENOrdering Facility: [facility] Address: [address] [place] [address] Performed By: #### 5 7021-8 ####[facility]ITALNCLIA [id number] [address] LABORATORYCLIA [id number] [place] [address] [place] Platelet mean volume (Bld) [Entitic vol] 8.9 fL Low 9.0-12.7 [facility] Comment on above: Order Comment: Speci men Type: BLOOD SPECIMENOrdering Facility: [facility] Address: [address] [place] [address] Performed By: #### 5 7021-8 ####[facility] ERWNCLIA [id number] [address] LABORATORYCLIA [id number] [place] [address] [place] Platelets (Bld) [#/Vol] 385 10*3/uL Normal 150-400 [facility] Comment on above: Order Comment: Speci men Type: BLOOD SPECIMENOrdering Facility: [facility] Address: [address] [place] [address] Performed By: #### 5 7021-8 ####[facility] MILLWNCLIA [id number] [address] LABORATORYCLIA [id number] [place] [address] [place] Platelets Estimate (Bld) [#/Vol] Adequate Normal [facility] Comment on above: Order Comment: Speci men Type: BLOOD SPECIMENOrdering Facility: [facility] Address: [address] [place] [address] Performed By: #### 5 7021-8 ####[facility] MILLTOWNCLIA [id number] [address] LABORATORYCLIA [id number] [place] [address] [place] Polychromasia LM Ql (Bld) Slight Normal [facility] Comment on above: Order Comment: Speci men Type: BLOOD SPECIMENOrdering Facility: [facility] Address: [address] [place] [address] Performed By: #### 5 7021-8 ####[facility] MILLWNCLIA [id number] [address] LABORATORYCLIA [id number] [place] [address] [place] RBC (Bld) [#/Vol] 3.22 10*6/uL Low 3.90-5.20 [facility] Comment on above: Order Comment: Speci men Type: BLOOD SPECIMENOrdering Facility: [facility] Address: [address] [place] [address] Performed By: #### 5 7021-8 ####[facility] MILLWNCLIA [id number] [address] LABORATORYCLIA [id number] [place] [address] [place] RED CELL MORPH Reviewed: see result s of individual morphologies Normal [facility] Comment on above: Order Comment: Speci men Type: BLOOD SPECIMENOrdering Facility: [facility] Address: [address] [place] [address] Performed By: #### 5 7021-8 ####[facility] GILBERTLIA [id number] [address] LABORATORYCLIA [id number] [place] [address] [place] WBC (Bld) [#/Vol] 5.35 10*3/uL Normal 3.70-11.00 [facility] Comment on above: Order Comment: Speci men Type: BLOOD SPECIMENOrdering Facility: [facility] Address: [address] [place] [address] Performed By: #### 5 7021-8 ####[facility]ITAL[facility]CLIA [id number] [address] LABORATORYCLIA [id number] [place] [address] [place] WBC Left Shift Ql (Bld) Present Normal [facility] Comment on above: Order Comment: Speci men Type: BLOOD SPECIMENOrdering Facility: [facility] Address: [address] [place] [address] Performed By: #### 5 7021-8 ####[facility]IT[facility] [id number] [address] LABORATORYCLIA [id number] [place] [address] [place] CBC W Auto Differential pane l (Bld)on 11-29-2024 Basophils (Bld) [#/Vol] 0.00 10*3/uL [facility] Basophils/100 WBC (Bld) 0.0 % [facility] Differential cell count method Nom (Bld) Manual [facility] Eosinophils (Bld) [#/Vol] 0.06 10*3/uL [facility] Eosinophils/100 WBC (Bld) 2.0 % [facility] Erythrocyte distribution width (RBC) [Ratio] 13.3 % 11.5 - 15.0 % [facility] Hematocrit (Bld) [Volume fraction] 26.9 % Low 36.0 - 46.0 % [facility] Hemoglobin (Bld) [Mass/Vol] 9.3 g/dL Low 11.5 - 15.5 g/dL [facility] Interpretation and review of laboratory results Abnormal [facility] Lymphocytes (Bld) [#/Vol] 1.62 10*3/uL [facility] Lymphocytes/100 WBC (Bld) 59.0 % [facility] MCH (RBC) [Entitic mass] 29.2 pg 26.0 - 34.0 pg [facility] MCHC (RBC) [Mass/Vol] 34.6 g/dL 30.5 - 36.0 g/dL [facility] MCV (RBC) [Entitic vol] 84.3 fL 80.0 - 100.0 fL [facility] Monocytes (Bld) [#/Vol] 0.66 10*3/uL [facility] Monocytes/100 WBC (Bld) 24.0 % [facility] Neutrophils (Bld) [#/Vol] 0.41 10*3/uL Low [facility] Neutrophils/100 WBC (Bld) 15.0 % [facility] Nucleated RBC (Bld) [#/Vol] [facility] Nucleated RBC/100 WBC (Bld) [Ratio] 0.0 % /100 WBC [facility] Platelet mean volume (Bld) [Entitic vol] 8.6 fL Low 9.0 - 12.7 fL [facility] Platelets (Bld) [#/Vol] 285 10*3/uL [facility] Platelets Estimate (Bld) [#/Vol] Adequate [facility] Polychromasia LM Ql (Bld) Slight [facility] RBC (Bld) [#/Vol] 3.19 10*6/uL Low 3.90 - 5.20 m/uL [facility] Red Cell Morph Reviewed: see result s of individual morphologies [facility] WBC (Bld) [#/Vol] 2.75 10*3/uL [facility] This is an appended report. These results have been appended to a previously verified report. [facility] Basophils (Bld) [#/Vol] 0.00 10*3/uL Normal <0.11 [facility] Comment on above: Order Comment: Speci men Type: BLOOD SPECIMENOrdering Facility: [facility] Address: [address] [place] [address] Performed By: #### 5 7021-8 ####[facility] MILLTOWNCLIA [id number] [address] LABORATORYCLIA [id number] [place] [address] [place] Basophils/100 WBC (Bld) 0.0 % Normal [facility] Comment on above: Order Comment: Speci men Type: BLOOD SPECIMENOrdering Facility: [facility] Address: [address] [place] [address] Performed By: #### 5 7021-8 ####[facility] [id number] [address] LABORATORYCLIA [id number] [place] [address] [place] Differential cell count method Nom (Bld) Manual Normal [facility] Comment on above: Order Comment: Speci men Type: BLOOD SPECIMENOrdering Facility: [facility] Address: [address] [place] [address] Performed By: #### 5 7021-8 ####[facility]ITAL[facility]CLIA [id number] [address] LABORATORYCLIA [id number] [place] [address] [place] Eosinophils (Bld) [#/Vol] 0.06 10*3/uL Normal <0.46 [facility] Comment on above: Order Comment: Speci men Type: BLOOD SPECIMENOrdering Facility: [facility] Address: [address] [place] [address] Performed By: #### 5 7021-8 ####[facility]ST[facility] MILLTOWNCLIA [id number] [address] LABORATORYCLIA [id number] [place] [address] [place] Eosinophils/100 WBC (Bld) 2.0 % Normal [facility] Comment on above: Order Comment: Speci men Type: BLOOD SPECIMENOrdering Facility: [facility] Address: [address] [place] [address] Performed By: #### 5 7021-8 ####[facility] MILLTOWNCLIA [id number] [address] LABORATORYIA [id number] [place] [address] [place] Erythrocyte distribution width (RBC) [Ratio] 13.3 % Normal 11.5-15.0 [facility] Comment on above: Order Comment: Speci men Type: BLOOD SPECIMENOrdering Facility: [facility] Address: [address] [place] [address] Performed By: #### 5 7021-8 ####[facility] MILLTOWNCLIA [id number] [address] LABORATORYCLIA [id number] [place] [address] [place] Hematocrit (Bld) [Volume fraction] 26.9 % Low 36.0-46.0 [facility] Comment on above: Order Comment: Speci men Type: BLOOD SPECIMENOrdering Facility: [facility] Address: [address] [place] [address] Performed By: #### 5 7021-8 ####[facility] MILLTOWNCLIA [id number] [address] LABORATORYCLIA [id number] [address] [place] Hemoglobin (Bld) [Mass/Vol] 9.3 g/dL Low 11.5-15.5 [facility] Comment on above: Order Comment: Speci men Type: BLOOD SPECIMENOrdering Facility: [facility] Address: [address] [place] [address] Performed By: #### 5 7021-8 ####[facility] ERWNCLIA [id number] [address] LABORATORYCLIA [id number] [place] [address] [place] Lymphocytes (Bld) [#/Vol] 1.62 10*3/uL Normal 1.00-4.00 [facility] Comment on above: Order Comment: Speci men Type: BLOOD SPECIMENOrdering Facility: [facility] Address: [address] [place] [address] Performed By: #### 5 7021-8 ####[facility] [id number] [address] LABORATORYCLIA [id number] [address] STATES OF [facility] Lymphocytes/100 WBC (Bld) 59.0 % Normal [facility] Comment on above: Order Comment: Speci men Type: BLOOD SPECIMENOrdering Facility: [facility] Address: [address] [place] [address] Performed By: #### 5 7021-8 ####[facility]ITALL[facility] [id number] [address] LABORATORYCLIA [id number] [address] [place] MCH (RBC) [Entitic mass] 29.2 pg Normal 26.0-34.0 [facility] Comment on above: Order Comment: Speci men Type: BLOOD SPECIMENOrdering Facility: [facility] Address: [address] [place] [address] Performed By: #### 5 7021-8 ####[facility] LALYWNCLIA [id number] [address] LABORATORYCLIA [id number] [address] MCHC (RBC) [Mass/Vol] 34.6 g/dL Normal 30.5-36.0 [facility] Comment on above: Order Comment: Speci men Type: BLOOD SPECIMENOrdering Facility: [facility] Address: [address] [place] [address] Performed By: #### 5 7021-8 ####[facility]ITALNCLIA [id number] [address] LABORATORYCLIA [id number] [address] MCV (RBC) [Entitic vol] 84.3 fL Normal 80.0-100.0 [facility] Comment on above: Order Comment: Speci men Type: BLOOD SPECIMENOrdering Facility: [facility] Address: [address] [place] [address] Performed By: #### 5 7021-8 ####[facility] HOSPITALKALIELIA [id number] [address] LABORATORYCLIA [id number] [address] Monocytes (Bld) [#/Vol] 0.66 10*3/uL Normal <0.87 [facility] Comment on above: Order Comment: Speci men Type: BLOOD SPECIMENOrdering Facility: [facility] Address: [address] [place], [place] [address] Performed By: #### 5 7021-8 ####[facility] HOSPITALKALIEA [id number] [address] LABORATORYCLIA [id number] [place] [address] [place] Monocytes/100 WBC (Bld) 24.0 % Normal [facility] Comment on above: Order Comment: Speci men Type: BLOOD SPECIMENOrdering Facility: [facility] Address: [address] [place] [address] Performed By: #### 5 7021-8 ####[facility] MILLTOWNCLIA [id number] [address] LABORATORYCLIA [id number] [place] [address] [place] Neutrophils (Bld) [#/Vol] 0.41 10*3/uL Low 1.45-7.50 [facility] Comment on above: Order Comment: Speci men Type: BLOOD SPECIMENOrdering Facility: [facility] Address: [address] [place] [address] Performed By: #### 5 7021-8 ####[facility]PITALTOWNCLIA [id number] [address] LABORATORYCLIA [id number] [place] [address] [place] [facility] Neutrophils/100 WBC (Bld) 15.0 % Normal [facility] Comment on above: Order Comment: Speci men Type: BLOOD SPECIMENOrdering Facility: [facility] Address: [address] [place] [address] Performed By: #### 5 7021-8 ####[facility] MILLTOWNCLIA [id number] [address] LABORATORYCLIA [id number] [place] [address] [place] Nucleated RBC (Bld) [#/Vol] 10*3/uL Normal <0.01 [facility] Comment on above: Order Comment: Speci men Type: BLOOD SPECIMENOrdering Facility: [facility] Address: [address] [place] [address] Performed By: #### 5 7021-8 ####[facility] LALYWNCLIA [id number] [address] LABORATORYCLIA [id number] [place] [address] [place] Nucleated RBC/100 WBC (Bld) [Ratio] 0.0 /100 WBC Normal [facility] Comment on above: Order Comment: Speci men Type: BLOOD SPECIMENOrdering Facility: [facility] Address: [address] [place] [address] Performed By: #### 5 7021-8 ####[facility] HOSPITALNCMOUNTAINSTAR [facility] [id number] [address] LABORATORYCLIA [id number] [place] [address] [place] Platelet mean volume (Bld) [Entitic vol] 8.6 fL Low 9.0-12.7 [facility] Comment on above: Order Comment: Speci men Type: BLOOD SPECIMENOrdering Facility: [facility] Address: [address] [place] [address] Performed By: #### 5 7021-8 ####[facility] ERWKALIELIA [id number] [address] LABORATORYIA [id number] [place] [address] [place] Platelets (Bld) [#/Vol] 285 10*3/uL Normal 150-400 [facility] Comment on above: Order Comment: Speci men Type: BLOOD SPECIMENOrdering Facility: [facility] Address: [address] [place] [address] Performed By: #### 5 7021-8 ####[facility]ITALA [id number] [address] LABORATORYCLIA [id number] [place] [address] [place] Platelets Estimate (Bld) [#/Vol] Adequate Normal [facility] Comment on above: Order Comment: Speci men Type: BLOOD SPECIMENOrdering Facility: [facility] Address: [address] [place] [address] Performed By: #### 5 7021-8 ####[facility]ITALLIA [id number] [address] LABORATORYIA [id number] [place] [address] [place] Polychromasia LM Ql (Bld) Slight Normal [facility] Comment on above: Order Comment: Speci men Type: BLOOD SPECIMENOrdering Facility: [facility] Address: [address] [place] [address] Performed By: #### 5 7021-8 ####[facility]ITALA [id number] [address] LABORATORYCLIA [id number] [place] [address] [place] RBC (Bld) [#/Vol] 3.19 10*6/uL Low 3.90-5.20 [facility] Comment on above: Order Comment: Speci men Type: BLOOD SPECIMENOrdering Facility: [facility] Address: [address] [place] [address] Performed By: #### 5 7021-8 ####[facility]ITALA [id number] [address] LABORATORYCLIA [id number] [place] [address] [place] RED CELL MORPH Reviewed: see result s of individual morphologies Normal [facility] Comment on above: Order Comment: Speci men Type: BLOOD SPECIMENOrdering Facility: [facility] Address: [address] [place] [address] Performed By: #### 5 7021-8 ####[facility] GILBERTLIA [id number] [address] LABORATORYCLIA [id number] [place] [address] [place] WBC (Bld) [#/Vol] 2.75 10*3/uL Low 3.70-11.00 [facility] Comment on above: Order Comment: Speci men Type: BLOOD SPECIMENOrdering Facility: [facility] Address: [address] [place] [address] Performed By: #### 5 7021-8 ####[facility]ITALA [id number] [address] LABORATORYCLIA [id number] [place] [address] [place] CEA SerPl-mCncon 11-29-2024 Carcinoembryonic Ag [Mass/Vol] 19.1 ng/mL High <=2.9 [facility] Comment on above: Order Comment: Speci men Type: BLOOD SPECIMENOrdering Facility: [facility] Address: [address] [place] [address] Result Comment: Carc inoembryonic antigen test is used as an aid in monitoring response to treatment or recurrence in patients with established colorectal, breast, lung, prostatic, pancreatic, and ovarian carcinomas. Clinical correlation is required.The Carcinoembryonic antigen test was performed using the [employer] DXI paramagnetic particle chemiluminescent immunoassay method. Results obtained with different assay methods or kits cannot be used interchangeably. Performed By: #### 2 039-6 ####[facility] LABCLIA [id number] [place] [address] [place] CNOVSPon 11-29-2024 CNOVSP Normal [facility] Comprehensive metabolic 2000 panelOrdered By: Merlyn Veloz on 11-29-2024 Albumin [Mass/Vol] 3.5 g/dL Low 3.9 - 4.9 g/dL [facility] ALP [Catalytic activity/Vol] 92 U/L 34 - 123 U/L [facility] ALT [Catalytic activity/Vol] 21 U/L 7 - 38 U/L [facility] Anion gap [Moles/Vol] 11 mmol/L 8 - 15 mmol/L [facility] AST [Catalytic activity/Vol] 27 U/L 13 - 35 U/L [facility] Bilirubin [Mass/Vol] 0.7 mg/dL 0.2 - 1 .3 mg/dL [facility] Calcium [Mass/Vol] 8.6 mg/dL 8.5 - 10. 2 mg/dL [facility] Chloride [Moles/Vol] 92 mmol/L Low 98 - 10 7 mmol/L [facility] CO2 [Moles/Vol] 22 mmol/L 22 - 30 mmol/L [facility] Creatinine [Mass/Vol] 0.65 mg/dL 0.58 - 0.96 mg/dL [facility] GFR/1.73 sq M.predicted among non-blacks MDRD (S/P/Bld) [Vol rate/Area] 98 mL/min/{1.73_m2} - PINF [facility] Comment on above: Estimated Glomerular Filtration Rate [...] 125 mg/dL High 74 - 99 mg/dL [facility] Comment on above: The [place] Diab[employer] Association (ADA) provides guidance for [...] Standards of Medical Care in Diabetes 2016, [place] [employer]. Diabetes Care. 2016.39(Suppl 1). Interpretation and review of laboratory results Abnormal [facility] Potassium [Moles/Vol] 2.7 mmol/L Low 3.7 - 5.1 mmol/L [facility] Protein [Mass/Vol] 6.4 g/dL 6.3 - 8.0 g/dL [facility] Sodium [Moles/Vol] 125 mmol/L Low 136 - 144 mmol/L [facility] Urea nitrogen [Mass/Vol] 12 mg/dL 7 - 21 mg/dL [facility] Comprehensive metabolic 2000 panelon 11-29-2024 Albumin [Mass/Vol] 3.5 g/dL Low 3.9-4.9 [facility] Comment on above: Order Comment: Speci men Type: BLOOD SPECIMENOrdering Facility: [facility] Address: [address] [place] [address] Performed By: #### 1 91239, ####[facility] ERWTXLIA [id number] [place] [address] [place] ALP [Catalytic activity/Vol] 92 U/L Normal 34-123 [facility] Comment on above: Order Comment: Speci men Type: BLOOD SPECIMENOrdering Facility: [facility] Address: [address] [place] [address] Performed By: #### 1 239, 38836-5 ####[facility] MILLTOWNCLIA [id number] [place] [address] [place] ALT [Catalytic activity/Vol] 21 U/L Normal 7-38 [facility] Comment on above: Order Comment: Speci men Type: BLOOD SPECIMENOrdering Facility: [facility] Address: [address] [place] [address] Performed By: #### 1 9123-9, 89622-2 ####[facility] MILLTOWNCLIA [id number] [place] [address] [place] Anion gap [Moles/Vol] 11 mmol/L Normal 8-15 [facility] Comment on above: Order Comment: Speci men Type: BLOOD SPECIMENOrdering Facility: [facility] Address: [address] [place] [address] Performed By: #### 1 9123-9, 19368-4 ####[facility] MILLTOWKALIELIA [id number] [place] [address] [place] AST [Catalytic activity/Vol] 27 U/L Normal 13-35 [facility] Comment on above: Order Comment: Speci men Type: BLOOD SPECIMENOrdering Facility: [facility] Address: [address] [place] [address] Performed By: #### 1 9123-9, 10301-6 ####[facility] ERWKALIELIA [id number] [place] [address] [place] Bilirubin [Mass/Vol] 0.7 mg/dL Normal 0.2-1.3 [facility] Comment on above: Order Comment: Speci men Type: BLOOD SPECIMENOrdering Facility: [facility] Address: [address] [place] [address] Performed By: #### 1 9123-9, 87599-7 ####[facility] ERWKALIELIA [id number] [place] [address] [place] Calcium [Mass/Vol] 8.6 mg/dL Normal 8.5-10.2 [facility] Comment on above: Order Comment: Speci men Type: BLOOD SPECIMENOrdering Facility: [facility] Address: [address] [place] [address] Performed By: #### 1 9123-9, 14463-9 ####[facility] ERWKALIELIA [id number] [place] [address] [place] Chloride [Moles/Vol] 92 mmol/L Low 98-107 [facility] Comment on above: Order Comment: Speci men Type: BLOOD SPECIMENOrdering Facility: [facility] Address: [address] [place] [address] Performed By: #### 1 9123-9, 47259-9 ####[facility]ITALNCM[facility] [id number] [place] [address] [place] CO2 [Moles/Vol] 22 mmol/L Normal 22-30 [facility] Comment on above: Order Comment: Speci men Type: BLOOD SPECIMENOrdering Facility: [facility] Address: [address] [place] [address] Performed By: #### 1 9123-9, 50240-7 ####[facility] [id number] [place] [address] [place] Creatinine [Mass/Vol] 0.65 mg/dL Normal 0.58-0.96 [facility] Comment on above: Order Comment: Speci men Type: BLOOD SPECIMENOrdering Facility: [facility] Address: [address] [place] [address] Performed By: #### 1 9123-9, 69387-0 ####[facility] [id number] [place] [address] [place] eGFRcr SerPlBld CKD-EPI 2020 98 mL/min/1.73m??? Normal >=60 [facility] Comment on above: Order Comment: Speci men Type: BLOOD SPECIMENOrdering Facility: [facility] Address: [address] [place] [address] Result Comment: Sana mated Glomerular Filtration Rate [...] actual GFR. Performed By: #### 1 9123-9, 17231-1 ####[facility] BISHNUCucaNCLIA [id number] [place] [address] [place] Glucose [Mass/Vol] 125 mg/dL High 74-99 [facility] Comment on above: Order Comment: Speci men Type: BLOOD SPECIMENOrdering Facility: [facility] Address: [address] [place] [address] Result Comment: The [place] Diabetes Association (ADA) provides guidance for cutoff [...] Standards of Medical Care in Diabetes 2016, [place] [employer]. Diabetes Care. 2016.39(Suppl 1). Performed By: #### 1 9123-9, 95949-4 ####[facility]ITALNCLIA [id number] [place] [address] [place] Potassium [Moles/Vol] 2.7 mmol/L Low 3.7-5.1 [facility] Comment on above: Order Comment: Speci men Type: BLOOD SPECIMENOrdering Facility: [facility] Address: [address] [place] [address] Performed By: #### 1 9123-9, 66022-6 ####[facility]PITALNCLIA [id number] [place] [address] [place] Protein [Mass/Vol] 6.4 g/dL Normal 6.3-8.0 [facility] Comment on above: Order Comment: Speci men Type: BLOOD SPECIMENOrdering Facility: [facility] Address: [address] [place] [address] Performed By: #### 1 9123-9, 99108-5 ####[facility] BISHNUMATTHEW [id number] [place] [address] [place] Sodium [Moles/Vol] 125 mmol/L Low 136-144 [facility] Comment on above: Order Comment: Speci men Type: BLOOD SPECIMENOrdering Facility: [facility] Address: [address] [place], [place] [address] Performed By: #### 1 9123-9, 28149-1 ####[facility] BISHNUMATTHEW [id number] [place] [address] [place] Urea nitrogen [Mass/Vol] 12 mg/dL Normal 7-21 [facility] Comment on above: Order Comment: Speci men Type: BLOOD SPECIMENOrdering Facility: [facility] Address: [address] [place], [place] [address] Performed By: #### 1 9123-9, 83641-5 ####[facility] BISHNUMATTHEW [id number] [place] [address] [place] MAGNESIUMon 11-29-2024 Magnesium [Mass/Vol] 1.5 mg/dL Low 1.7 - 2 .3 mg/dL [facility] Magnesium SerPl-mCncon 11-29 Magnesium [Mass/Vol] 1.5 mg/dL Low 1.7-2.3 [facility] Comment on above: Order Comment: Speci men Type: BLOOD SPECIMENOrdering Facility: [facility] Address: [address] [place], [place] [address] Performed By: #### 1 9123-9, 41346-0 ####[facility] BISHNUWINSTON SALEMNCCALDERONA [id number] [place] [address] [place] Magnesium [Mass/Vol]on 11-29 Interpretation and review of laboratory results Abnormal [facility] CNPNon 11-28-2024 CNPN Normal [facility] CNPNon 11-27-2024 CNPN Normal [facility] CNPNon 11-26-2024 CNPN Normal [facility] REFERRAL FOR ADDITIONAL BIOM ARKER AND MOLECULAR TESTINGon 11-26-2024 REFERRAL FOR ADDITIONAL BIOMARKER AND MOLECULAR TESTING Normal [facility] Comment on above: Order Comment: Speci men Type: TISSUE SPECIMENOrdering Facility: [facility] Address: [address] [place] [address] Result Comment: Requ est has been received for evaluation and the results will be issued separately. Performed By: #### A PMOL ####[facility] [id number] [place] [id number] [place] Absolute lymphocyte countOrd ered By: Demarcus Gauthier on 11-25-2024 Lymphocytes Auto (Unsp spec) [#/Vol] 0.93 10*3/uL 0.83-4.51 [facility] Absolute neutrophil countOrd ered By: Demarcus Gauthier on 11-25-2024 Neutrophils (Bld) [#/Vol] 3.1 10*3/uL 2.0-7.7 [facility] Anion gap in Serum or Plasma Ordered By: Demarcus Gauthier on 11-25-2024 Anion gap [Moles/Vol] 14 mmol/L 5-15 [facility] Automated lymphocyte count a s percentage of total leukocytesOrdered By: Demarcus Gauthier on 11-25-2024 Lymphocytes/100 WBC Auto (Unsp spec) 19.4 % 19-41 [facility] BUN/creatinine ratioOrdered By: Demarcus Gauthier on 11-25-2024 Urea nitrogen/Creatinine [Mass ratio] 26.8 mg/mg High 10-20 [facility] Basophil percentageOrdered B y: Demarcus Gauthier on 11-25-2024 Basophils/100 WBC (Bld) 0.8 % 0-1 [facility] Bilirubin Test strip Ql (U)O rdered By: Demarcus Gauthier on 11-25-2024 Bilirubin Ql (U) Negative Negative [facility] Bilirubin, totalOrdered By: Demarcus Gauthier on 11-25-2024 Bilirubin [Mass/Vol] 0.39 mg/dL 0.00-1.30 [facility] CBC W/Diff, Automatedon 09-0 Anisocytosis Ql (Bld) 1+ Normal [facility] Comment on above: Performed By: #### L 500.4050, L501.2450, L100.0100 ####[facility] [address] [place], [address] HYPOCHROMASIA 1+ Normal [facility] Comment on above: Performed By: #### L 500.4050, L501.2450, L100.0100 ####[facility] [address] [place], [address] PLT EST ADEQUATE Normal ADEQ [facility] Comment on above: Performed By: #### L 500.4050, L501.2450, L100.0100 ####[facility] [address] [place], [address] Carbon dioxide, total [Moles /volume] in Central venous bloodOrdered By: Demarcus Gauthier on 11-25-2024 CO2 [Moles/Vol] 23.7 mmol/L 21.0-32.0 [facility] Chloride assayOrdered By: Chris Gauthier on 11-25-2024 Chloride [Moles/Vol] 96 mmol/L Low 98-108 [facility] Comprehensive Metabolic Prof ilon 11-25-2024 Albumin [Mass/Vol] 3.6 g/dL Normal 3.4-4.8 [facility] Comment on above: Performed By: #### L 500.4050, L501.2450, L100.0100 ####[facility] [address] [place], [address] Albumin/Globulin [Mass ratio] 1.2 {ratio} Normal 0.9-2.4 [facility] Comment on above: Performed By: #### L 500.4050, L501.2450, L100.0100 ####[facility] [address] [place], [address] ALK PHOS 58 U/L Normal 35-104 [facility] Comment on above: Performed By: #### L 500.4050, L501.2450, L100.0100 ####[facility] [address] [place], [address] ALT [Catalytic activity/Vol] 10 U/L Normal <=34 [facility] Comment on above: Performed By: #### L 500.4050, L501.2450, L100.0100 ####[facility] [address] [place], [address] AST [Catalytic activity/Vol] 20 U/L Normal <=31 [facility] Comment on above: Performed By: #### L 500.4050, L501.2450, L100.0100 ####[facility] [address] [place], [address] Bilirubin [Mass/Vol] 0.39 mg/dL Normal 0.00-1.30 [facility] Comment on above: Performed By: #### L 500.4050, L501.2450, L100.0100 ####[facility] [address] [place], [address] BUN/CRE 26.8 RATIO High 10-20 [facility] Comment on above: Performed By: #### L 500.4050, L501.2450, L100.0100 ####[facility] [address] [place], [address] Calcium [Mass/Vol] 8.7 mg/dL Normal 7.6-11.0 [facility] Comment on above: Performed By: #### L 500.4050, L501.2450, L100.0100 ####[facility] [address] [place], [address] Chloride [Moles/Vol] 96 mmol/L Low 98-108 [facility] Comment on above: Performed By: #### L 500.4050, L501.2450, L100.0100 ####[facility] [address] [place], [address] CO2 [Moles/Vol] 23.7 mmol/L Normal 21.0-32.0 [facility] Comment on above: Performed By: #### L 500.4050, L501.2450, L100.0100 ####[facility] [address] [place], [address] Creatinine [Mass/Vol] 0.62 mg/dL Low 0.70-1.20 [facility] Comment on above: Performed By: #### L 500.4050, L501.2450, L100.0100 ####[facility] [address] [place], [address] ECRCL 43.17 ml/min Low 50-250 [facility] Comment on above: Performed By: #### L 500.4050, L501.2450, L100.0100 ####[facility] [address] [place], [address] GAP 14 Normal 5-15 [facility] Comment on above: Performed By: #### L 500.4050, L501.2450, L100.0100 ####[facility] [address] [place], [address] GFR/1.73 sq M.predicted among non-blacks MDRD (S/P/Bld) [Vol rate/Area] 99 mL/min/{1.73_m2} Normal >60 [facility] Comment on above: Result Comment: mL/m in/1.73m2 CKD-EPI Creatinine Equation (2020) Performed By: #### L 500.4050, L501.2450, L100.0100 ####[facility] [address] [place], [address] Globulin (S) [Mass/Vol] 3.1 g/dL Normal 2.2-4.2 [facility] Comment on above: Performed By: #### L 500.4050, L501.2450, L100.0100 ####[facility] [address] [place], [address] Glucose [Mass/Vol] 148 mg/dL High 70-99 [facility] Comment on above: Performed By: #### L 500.4050, L501.2450, L100.0100 ####[facility] [address] [place], [address] Potassium [Moles/Vol] 3.2 mmol/L Low 3.3-5.1 [facility] Comment on above: Performed By: #### L 500.4050, L501.2450, L100.0100 ####[facility] [address] [place], [address] Sodium [Moles/Vol] 134 mmol/L Normal 133-145 [facility] Comment on above: Performed By: #### L 500.4050, L501.2450, L100.0100 ####[facility] [address] [place], [address] T PROT 6.7 g/dL Normal 5.9-8.4 [facility] Comment on above: Performed By: #### L 500.4050, L501.2450, L100.0100 ####[facility] [address] [place], [address] Urea nitrogen [Mass/Vol] 17 mg/dL Normal 4-19 [facility] Comment on above: Performed By: #### L 500.4050, L501.2450, L100.0100 ####[facility] [address] [place], [address] Emergency Department Summary on 11-25-2024 Emergency Department Summary Normal [facility] Eosinophil percentageOrdered By: Demarcus Gauthier on 11-25-2024 Eosinophils/100 WBC (Bld) 2.1 % 0-5 [facility] Erythrocyte distribution wid th ratioOrdered By: Demarcus Gauthier on 11-25-2024 Erythrocyte distribution width (RBC) [Ratio] 13.2 % 11.6-14.6 [facility] Erythrocyte distribution wid th standard deviationOrdered By: Demarcus Gauthier on 11-25-2024 Erythrocyte distribution width (RBC) [Ratio] 42.5 fl 35.1-43.9 [facility] Glomerular filtration rate ( GFR) estimation/1.73 sq m using serum, plasma, or whole bOrdered By: Demarcus Gauthier on 11-25-2024 GFR/1.73 sq M.predicted among non-blacks MDRD (S/P/Bld) [Vol rate/Area] 99 mL/min/{1.73_m2} >60 [facility] Comment on above: mL/min/1.73m2 CKD-EP I Creatinine Equation (2020) Hematocrit Auto (Bld) [Volum e fraction]Ordered By: Demarcus Gauthier on 11-25-2024 Hematocrit (Bld) [Volume fraction] 28.4 % Low 37-47 [facility] Hemoglobin measurementOrdere d By: Demarcus Gauthier on 11-25-2024 Hemoglobin (Bld) [Mass/Vol] 9.7 g/dL Low 12.0-15.0 [facility] Hypochromatic red blood cell detectionOrdered By: Demarcus Gauthier on 11-25-2024 Hypochromia Ql (Bld) 1+ [facility] Immature granulocytes/100 WB C Auto (Bld)Ordered By: Demarcus Gauthier on 11-25-2024 Immature granulocytes/100 WBC (Bld) 0.600 % 0.0-0.9 [facility] Comment on above: IG% - Immature Granu locytes (promyelocytes, myelocytes and metamyelocytes) > 1% indicates that a LEFT SHIFT is Present. Ketones Test strip Ql (U)Ord ered By: Demarcus Gauthier on 11-25-2024 Ketones Ql (U) Negative Negative [facility] Laboratory - Chemistry and C hemistry - challengeOrdered By: Demarcus Gauthier on 11-25-2024 AST [Catalytic activity/Vol] 20 U/L <32 [facility] - Hematology and Cell countsOrdered By: Demarcus Gauthier on 11-25-2024 Anisocytosis Ql (Bld) 1+ [facility] Lipaseon 11-25-2024 Lipase [Catalytic activity/Vol] 62 U/L Normal 13-75 [facility] Comment on above: Result Comment: Efrem caldwell note:LIPASE revised reference range effective 22.New Lipase methodology. Expected to produce lower valuesthan the previous assay method.NEW Reference Range: 13 - 75 U/L Performed By: #### L 500.4050, L501.2450, L100.0100 ####[facility] [address] [place], [address] Lipase measurementOrdered By : Demarcus Gauthier on 11-25-2024 Lipase [Catalytic activity/Vol] 62 U/L 13- [facility] Comment on above: Please note:LIPASE r evised reference range effective 22. New Lipase methodology. Expected to produce lower values than the previous assay method. NEW Reference Range: 13 - 75 U/L MCV (mean corpuscular volume ) determinationOrdered By: Demarcus Gauthier on 11-25-2024 MCV (RBC) [Entitic vol] 87.4 fL 81-99 [facility] Mean corpuscular hemoglobin (MCH) determinationOrdered By: Demarcus Gauthier on 11-25-2024 MCH (RBC) [Entitic mass] 29.8 pg 27.0-32.0 [facility] Mean corpuscular hemoglobin concentration (MCHC) determinationOrdered By: Demarcus Gauthier on 11-25-2024 MCHC (RBC) [Mass/Vol] 34.2 g/dL 32-36 [facility] Mean platelet volume determi nationOrdered By: Demarcus Gauthier on 11-25-2024 Platelet mean volume (Bld) [Entitic vol] 9.6 fL 6.2-12.0 [facility] Microscopic analysis of urin e for red blood cells (RBC)Ordered By: Demarcus Gauthier on 11-25-2024 Microscopic analysis of urine for red blood cells (RBC) 0 SEEN /hpf 0-5 [facility] Monocyte percentageOrdered B y: Demarcus Gauthier on 11-25-2024 Monocytes/100 WBC (Bld) 12.7 % High 0-10 [facility] Mucus LM Ql (Urine sed)Order ed By: Demarcus Gauthier on 11-25-2024 Mucus Ql (Urine sed) 1+ /hpf [facility] Neutrophil percentageOrdered By: Demarcus Gauthier on 11-25-2024 Neutrophils/100 WBC (Bld) 64.4 % 47-70 [facility] Nitrite Test strip Ql (U)Ord ered By: Demarcus Gauthier on 11-25-2024 Nitrite Ql (U) Negative Negative [facility] No Panel InformationOrdered By: Demarcus Gauthier on 11-25-2024 1+ [facility] 20 U/L <32 [facility] Nucleated red blood cell per centageOrdered By: Demarcus Gauthier on 11-25-2024 Nucleated RBC/100 WBC (Bld) [Ratio] 0 % 0-5 [facility] Platelet countOrdered By: [place] Gauthier on 11-25-2024 Platelets (Bld) [#/Vol] 220 10*3/uL 150-450 [facility] Platelet estimateOrdered By: Demarcus Gauthier on 11-25-2024 Platelets LM Ql (Bld) ADEQUATE ADEQ [facility] Potassium measurement (mass/ volume)Ordered By: Demarcus Gauthier on 11-25-2024 Potassium (Unsp spec) [Mass/Vol] 3.2 mmol/L Low 3.3-5.1 [facility] Protein Test strip Ql (U)Ord ered By: Demarcus Gauthier on 11-25-2024 Protein Ql (U) 30 mg/dl High Negative [facility] RBC Auto (Bld) [#/Vol]Ordere d By: Demarcus Gauthier on 11-25-2024 RBC (Bld) [#/Vol] 3.25 10*6/uL Low 4.2-5.4 [facility] Serum creatinine measurement (mass/volume)Ordered By: Demarcus Gauthier on 11-25-2024 Creatinine [Mass/Vol] 0.62 mg/dL Low 0.70-1.20 [facility] Serum globulin measurementOr dered By: Demarcus Gauthier on 11-25-2024 Globulin (S) [Mass/Vol] 3.1 g/dL 2.2-4.2 [facility] Serum glucose measurement (m ass/volume)Ordered By: Demarcus Gauthier on 09-01-2025 Glucose [Mass/Vol] 148 mg/dL High 70-99 [facility] Serum or plasma alanine ramirez otransferase (ALT) measurementOrdered By: Demarcus Gauthier on 11-25-2024 ALT [Catalytic activity/Vol] 10 U/L <35 [facility] Serum or plasma albumin renetta urement (mass/volume)Ordered By: Demarcus Gauthier on 11-25-2024 Albumin [Mass/Vol] 3.6 g/dL 3.4-4.8 [facility] Serum or plasma albumin/glob ulin mass ratioOrdered By: Demarcus Gauthier on 11-25-2024 Albumin/Globulin [Mass ratio] 1.2 {ratio} 0.9-2.4 [facility] Serum or plasma alkaline marquez sphatase measurementOrdered By: Demarcus Gauthier on 11-25-2024 ALP [Catalytic activity/Vol] 58 U/L 35-104 [facility] Serum or plasma calcium renetta urement (mass/volume)Ordered By: Demarcus Gauthier on 11-25-2024 Calcium [Mass/Vol] 8.7 mg/dL 7.6-11.0 [facility] Serum or plasma urea nitroge n measurement (mass/volume)Ordered By: Demarcus Gauthier on 11-25-2024 Urea nitrogen [Mass/Vol] 17 mg/dL 4-19 [facility] Sodium levelOrdered By: Demarcus Gauthier on 11-25-2024 Sodium [Moles/Vol] 134 mmol/L 133-145 [facility] Squamous epithelial cells de tection in urine sediment by light microscopyOrdered By: Demarcus Gauthier on 11-25-2024 Epithelial cells.squamous LM Ql (Urine sed) 0-5 SEEN /hpf 5-10 [facility] Total proteinOrdered By: Lisandro Gauthier on 11-25-2024 Protein [Mass/Vol] 6.7 g/dL 5.9-8.4 [facility] Urinalysis, Completeon 11-25 Mucus Ql (Urine sed) 1+ /hpf Normal [facility] Comment on above: Order Comment: CLEAN CATCH Performed By: #### L 400.0001 ####[facility] [address] [place], [place], [id number] BACTERIA 1+ /hpf Normal None Seen [facility] Comment on above: Order Comment: CLEAN CATCH Performed By: #### L 400.0001 ####[facility] [address] [place], [address] EPI,SQUAMOUS 0-5 SEEN Normal 5-10 [facility] Comment on above: Order Comment: CLEAN CATCH Performed By: #### L 400.0001 ####[facility] [address] [facility] [address] RBC 0 SEEN Normal 0-5 [facility] Comment on above: Order Comment: CLEAN CATCH Performed By: #### L 400.0001 ####[facility] [address] [place], [address] WBC 0 SEEN Normal 0-5 [facility] Comment on above: Order Comment: CLEAN CATCH Performed By: #### L 400.0001 ####[facility] [address] [place], [place], [address] Urine clarityOrdered By: Lisandro Gauthier on 11-25-2024 Clarity (U) Clear Clear [facility] Urine color determinationOrd ered By: Demarcus Gauthier on 11-25-2024 Color (U) Yellow Yellow [facility] Urine glucose detectionOrder ed By: Demarcus Gauthier on 11-25-2024 Glucose Ql (U) Normal mg/dl Normal [facility] Urine leukocyte esterase det ection by dipstickOrdered By: Demarcus Gauthier on 11-25-2024 Leukocyte esterase Test strip Ql (U) Negative Negative [facility] Urine pHOrdered By: Demarcus gage on 11-25-2024 pH (U) 6.0 [pH] 5.0 - 8.0 [facility] Urine sediment bacteria coun t by microscopy (number/high power field)Ordered By: Demarcus Gauthier on 11-25-2024 Bacteria LM.HPF (Urine sed) [#/Area] 1 /[HPF] None Seen [facility] Urine specific gravity measu rementOrdered By: Demarcus Gauthier on 11-25-2024 Specific gravity (U) [Rel density] 1.015 1.002-1.03 0 [facility] Urine urobilinogen measureme ntOrdered By: Demarcus Gauthier on 11-25-2024 Urobilinogen Ql (U) Normal mg/dl Normal [facility] White blood cell (WBC) count Ordered By: Demarcus Gauthier on 11-25-2024 WBC (Bld) [#/Vol] 4.8 10*3/uL 4.4-11.0 [facility] White blood cell countOrdere d By: Demarcus Gauthier on 11-25-2024 White blood cell count 0 SEEN /hpf 0-5 [facility] CBC panel Auto (Bld)on 11-23 Erythrocyte distribution width (RBC) [Ratio] 13.7 % Normal 11.5-15.0 [facility] Comment on above: Order Comment: Speci men Type: BLOOD SPECIMEN Ordering Facility: [facility] Address: [address] [place] [address] Performed By: #### 5 8410-2 #### [facility] CLIA [id number] [address] [place] Hematocrit (Bld) [Volume fraction] 27.9 % Low 36.0-46.0 [facility] Comment on above: Order Comment: Speci men Type: BLOOD SPECIMEN Ordering Facility: [facility] Address: [address] [place] [address] Performed By: #### 5 8410-2 #### [facility] CLIA [id number] [address] [place] Hemoglobin (Bld) [Mass/Vol] 9.3 g/dL Low 11.5-15.5 [facility] Comment on above: Order Comment: Speci men Type: BLOOD SPECIMEN Ordering Facility: [facility] Address: [address] [place] [address] Performed By: #### 5 8410-2 #### [facility] CLIA [id number] [address] [place] MCH (RBC) [Entitic mass] 29.4 pg Normal 26.0-34.0 [facility] Comment on above: Order Comment: Speci men Type: BLOOD SPECIMEN Ordering Facility: [facility] Address: [address] [place] [address] Performed By: #### 5 8410-2 #### [facility] CLIA [id number] [address] MCHC (RBC) [Mass/Vol] 33.3 g/dL Normal 30.5-36.0 [facility] Comment on above: Order Comment: Speci men Type: BLOOD SPECIMEN Ordering Facility: [facility] Address: [address] [place] [address] Performed By: #### 5 8410-2 #### [facility] CLIA [id number] [address] STATES [facility] MCV (RBC) [Entitic vol] 88.3 fL Normal 80.0-100.0 [facility] Comment on above: Order Comment: Speci men Type: BLOOD SPECIMEN Ordering Facility: [facility] Address: [address] [place] [address] Performed By: #### 5 8410-2 #### [facility] CLIA [id number] [address] STATES OF [facility] Nucleated RBC (Bld) [#/Vol] 10*3/uL Normal <0.01 [facility] Comment on above: Order Comment: Speci men Type: BLOOD SPECIMEN Ordering Facility: [facility] Address: [address] [place] [address] Performed By: #### 5 8410-2 #### [facility] CLIA [id number] [address] [place] Platelet mean volume (Bld) [Entitic vol] 9.6 fL Normal 9.0-12.7 [facility] Comment on above: Order Comment: Speci men Type: BLOOD SPECIMEN Ordering Facility: [facility] Address: [address] [place] [address] Performed By: #### 5 8410-2 #### [facility] CLIA [id number] [address] [place] Platelets (Bld) [#/Vol] 166 10*3/uL Normal 150-400 [facility] Comment on above: Order Comment: Umesh baugh Type: BLOOD SPECIMEN Ordering Facility: [facility] Address: [address] [place] [address] Performed By: #### 5 8410-2 #### [facility] CLIA [id number] [address] RBC (Bld) [#/Vol] 3.16 10*6/uL Low 3.90-5.20 [facility] Comment on above: Order Comment: Speci men Type: BLOOD SPECIMEN Ordering Facility: [facility] Address: [address] [place] [address] Performed By: #### 5 8410-2 #### [facility] CLIA [id number] [address] WBC (Bld) [#/Vol] 2.61 10*3/uL Low 3.70-11.00 [facility] Comment on above: Order Comment: Umesh men Type: BLOOD SPECIMEN Ordering Facility: [facility] Address: [address] [place] [address] Performed By: #### 5 8410-2 #### [facility] CLIA [id number] [address] CNDSon 11-23-2024 CNDS HNO ID: [id number] Author: PATEL GANDARA MD Service: Hospital Medicine [...] reported STEMI and reported Vfib arrest at [facility], with initial complaint of chest pain. [...] cardiogenic shock and sent to CVICU at [facility]. Taken immediately to [employer] [facility] with [facility] performed which revealed [...] patient voiced understanding of these risks. Per production staff worker, patient left the unit at 2039 via wheelchair. V-fib arrest status post ACLS with reported ST elevation GA at outside hospital after being started on [...] results. FOLLOW-UP APPOINTMENTS ALREADY SCHEDULED WITH A [facility] PROVIDER: Future Appointments Date Time Provider Department Center 11/29/2024 11:45 AM Wstr, Lab/[place] [facility] [place] 11/29/2024 12:10 PM Jimmie Poole MD [facility] [place] 12/02/2024 9:00 AM TREATMENT RM 5 [facility] [place] 12/04/2024 4:00 PM Wstr, Lab/[place] [place] 12/06/2024 2:00 PM Stacie Souza APRN.PROCESS DESCRIPTION WRITER [facility] None 12/13/2024 2:00 PM Wstr, Lab/[place] [facility] [place] 12/13/2024 2:20 PM Jimmie Poole MD [facility] [place] 12/16/2024 8:00 AM TREATMENT RM 2 [facility] C [facility]STR [facility] [place] 12/18/2024 4:00 PM Wstr, Lab/[place] L[facility]O (more content not included)... Normal [facility] NURSING PROGon 11-23-2024 NURSING PROG HNO ID: [id number] Author: STEPHON YE RN Service: Nursing Author Type: Registered Nurse [facility] H[facility]: [id number] Author: WALDEMAR LOPES, RN Service: Nursing Author Type: Registered Nurse Type: Nursing Progress Note Filed: 11/23/2024 19:43 Note Text: Patient requesting to leave AMA. Discussed situation with Shanice Bacon, TRAY FILL[facility], [facility]. Shanice spoke with the attending [facility] physician Dr. Patel Gandara. Per Dr. Gandara, patient to sign AMA form. No prescriptions to be called in. Normal [facility] Renal function 2000 panelon 11-23-2024 Albumin [Mass/Vol] 3.4 g/dL Low 3.9-4.9 [facility] Comment on above: Order Comment: Speci men Type: URINE SPECIMEN Ordering Facility: [facility] Address: [address] [place] [address] Performed By: #### 2 4356-8 #### [facility] CLIA [id number] 1 [place] [address] [place] Anion gap [Moles/Vol] 11 mmol/L Normal 8-15 [facility] Comment on above: Order Comment: Speci men Type: URINE SPECIMEN Ordering Facility: [facility] Address: [address] [place] [address] Performed By: #### 2 4356-8 #### [facility] CLIA [id number] 1 [place] [address] [place] Calcium [Mass/Vol] 8.4 mg/dL Low 8.5-10.2 [facility] Comment on above: Order Comment: Speci men Type: URINE SPECIMEN Ordering Facility: [facility] Address: [address] [place] [address] Performed By: #### 2 4356-8 #### [facility] CLIA [id number] [address] [place] Chloride [Moles/Vol] 97 mmol/L Low 98-107 [facility] Comment on above: Order Comment: Speci men Type: URINE SPECIMEN Ordering Facility: [facility] Address: [address] [place] [address] Performed By: #### 2 4356-8 #### [facility] CLIA [id number] [address] [place] CO2 [Moles/Vol] 26 mmol/L Normal 22-30 [facility] Comment on above: Order Comment: Speci men Type: URINE SPECIMEN Ordering Facility: [facility] Address: [address] [place] [address] Performed By: #### 2 4356-8 #### [facility] CLIA [id number] [address] OF [facility] Creatinine [Mass/Vol] 0.60 mg/dL Normal 0.58-0.96 [facility] Comment on above: Order Comment: Speci men Type: URINE SPECIMEN Ordering Facility: [facility] Address: [address] [place] [address] Performed By: #### 2 4356-8 #### [facility] CLIA [id number] [address] eGFRcr SerPlBld CKD-EPI 2020 100 mL/min/1.73m??? Normal >=60 [facility] Comment on above: Order Comment: Speci men Type: URINE SPECIMEN Ordering Facility: [facility] Address: [address] [place] [address] Result Comment: Sana mated Glomerular Filtration Rate [...] GFR. Performed By: #### 2 4356-8 #### [facility] CLIA [id number] 1 [place] [address] [place] Glucose [Mass/Vol] 102 mg/dL High 74-99 [facility] Comment on above: Order Comment: Speci men Type: URINE SPECIMEN Ordering Facility: [facility] Address: [address] [place] [address] Result Comment: The [place] [employer] (ADA) provides guidance for cutoff [...] Standards of Medical Care in Diabetes 2016, [place] [employer]. Diabetes Care. 2016.39(Suppl 1). Performed By: #### 2 4356-8 #### [facility] CLIA [id number] 1 [place] [address] [place] Phosphate [Mass/Vol] 3.0 mg/dL Normal 2.7-4.8 [facility] Comment on above: Order Comment: Speci men Type: URINE SPECIMEN Ordering Facility: [facility] Address: [address] [place] [address] Performed By: #### 2 4356-8 #### [facility] CLIA [id number] 1 [place] [address] [place] Potassium [Moles/Vol] 3.9 mmol/L Normal 3.7-5.1 [facility] Comment on above: Order Comment: Speci men Type: URINE SPECIMEN Ordering Facility: [facility] Address: [address] [place] [address] Performed By: #### 2 4356-8 #### [facility] CLIA [id number] 1 [place] [address] [place] Sodium [Moles/Vol] 134 mmol/L Low 136-144 [facility] Comment on above: Order Comment: Speci men Type: URINE SPECIMEN Ordering Facility: [facility] Address: [address] [place] [address] Performed By: #### 2 4356-8 #### [facility] CLIA [id number] [address] [place] Urea nitrogen [Mass/Vol] 12 mg/dL Normal 7-21 [facility] Comment on above: Order Comment: Speci men Type: URINE SPECIMEN Ordering Facility: [facility] Address: [address] [place] [address] Performed By: #### 2 4356-8 #### [facility] CLIA [id number] [address] [place] Basic metabolic 2000 panelon 11-22-2024 Anion gap [Moles/Vol] 10 mmol/L Normal 8-15 [facility] Comment on above: Order Comment: Speci men Type: URINE SPECIMEN Ordering Facility: [facility] Address: [address] [place] [address] Performed By: #### 2 4356-8 #### [facility] CLIA [id number] 1 [place] [address] [place] Calcium [Mass/Vol] 8.5 mg/dL Normal 8.5-10.2 [facility] Comment on above: Order Comment: Speci men Type: URINE SPECIMEN Ordering Facility: [facility] Address: [address] [place] [address] Performed By: #### 2 4356-8 #### [facility] CLIA [id number] 1 [place] [address] [place] Chloride [Moles/Vol] 105 mmol/L Normal 98-107 [facility] Comment on above: Order Comment: Speci men Type: URINE SPECIMEN Ordering Facility: [facility] Address: [address] [place] [address] Performed By: #### 2 4356-8 #### [facility] CLIA [id number] 1 [place] [address] [place] CO2 [Moles/Vol] 24 mmol/L Normal 22-30 [facility] Comment on above: Order Comment: Speci men Type: URINE SPECIMEN Ordering Facility: [facility] Address: [address] [place] [address] Performed By: #### 2 4356-8 #### [facility] CLIA [id number] [address] OF [facility] Creatinine [Mass/Vol] 0.66 mg/dL Normal 0.58-0.96 [facility] Comment on above: Order Comment: Speci men Type: URINE SPECIMEN Ordering Facility: [facility] Address: [address] [place] [address] Performed By: #### 2 4356-8 #### [facility] CLIA [id number] [address] eGFRcr SerPlBld CKD-EPI 2020 97 mL/min/1.73m??? Normal >=60 [facility] Comment on above: Order Comment: Speci men Type: URINE SPECIMEN Ordering Facility: [facility] Address: [address] [place] [address] Result Comment: Sana mated Glomerular Filtration Rate [...] GFR. Performed By: #### 2 4356-8 #### [facility] CLIA [id number] [address] [place] Glucose [Mass/Vol] 109 mg/dL High 74-99 [facility] Comment on above: Order Comment: Speci men Type: URINE SPECIMEN Ordering Facility: [facility] Address: [address] [place] [address] Result Comment: The [place] Diabetes [employer] (ADA) provides guidance for cutoff [...] Standards of Medical Care in Diabetes 2016, [place] [employer]. Diabetes Care. 2016.39(Suppl 1). Performed By: #### 2 4356-8 #### [facility] CLIA [id number] [address] STATES [facility] Potassium [Moles/Vol] 3.9 mmol/L Normal 3.7-5.1 [facility] Comment on above: Order Comment: Speci men Type: URINE SPECIMEN Ordering Facility: [facility] Address: [address] [place] [address] Performed By: #### 2 4356-8 #### [facility] CLIA [id number] [address] Sodium [Moles/Vol] 139 mmol/L Normal 136-144 [facility] Comment on above: Order Comment: Speci men Type: URINE SPECIMEN Ordering Facility: [facility] Address: [address] [place] [address] Performed By: #### 2 4356-8 #### [facility] CLIA [id number] [address] Urea nitrogen [Mass/Vol] 12 mg/dL Normal 7-21 [facility] Comment on above: Order Comment: Speci men Type: URINE SPECIMEN Ordering Facility: [facility] Address: [address] [place] [address] Performed By: #### 2 4356-8 #### [facility] CLIA [id number] [address] OF [facility] CBC panel Auto (Bld)on 11-22 Erythrocyte distribution width (RBC) [Ratio] 14.4 % Normal 11.5-15.0 [facility] Comment on above: Order Comment: Speci men Type: BLOOD SPECIMEN Ordering Facility: [facility] Address: [address] [place] [address] Performed By: #### 5 8410-2 #### [facility] CLIA [id number] [address] Hematocrit (Bld) [Volume fraction] 26.9 % Low 36.0-46.0 [facility] Comment on above: Order Comment: Speci men Type: BLOOD SPECIMEN Ordering Facility: [facility] Address: [address] [place] [address] Performed By: #### 5 8410-2 #### [facility] CLIA [id number] [address] OF [facility] Hemoglobin (Bld) [Mass/Vol] 9.2 g/dL Low 11.5-15.5 [facility] Comment on above: Order Comment: Speci men Type: BLOOD SPECIMEN Ordering Facility: [facility] Address: [address] [place] [address] Performed By: #### 5 8410-2 #### [facility] CLIA [id number] [address] MCH (RBC) [Entitic mass] 30.0 pg Normal 26.0-34.0 [facility] Comment on above: Order Comment: Speci men Type: BLOOD SPECIMEN Ordering Facility: [facility] Address: [address] [place] [address] Performed By: #### 5 8410-2 #### [facility] CLIA [id number] [address] MCHC (RBC) [Mass/Vol] 34.2 g/dL Normal 30.5-36.0 [facility] Comment on above: Order Comment: Speci men Type: BLOOD SPECIMEN Ordering Facility: [facility] Address: [address] [place] [address] Performed By: #### 5 8410-2 #### [facility] CLIA [id number] [address] MCV (RBC) [Entitic vol] 87.6 fL Normal 80.0-100.0 [facility] Comment on above: Order Comment: Speci men Type: BLOOD SPECIMEN Ordering Facility: [facility] Address: [address] [place] [address] Performed By: #### 5 8410-2 #### [facility] CLIA [id number] [address] [place] Nucleated RBC (Bld) [#/Vol] 10*3/uL Normal <0.01 [facility] Comment on above: Order Comment: Speci men Type: BLOOD SPECIMEN Ordering Facility: [facility] Address: [address] [place] [address] Performed By: #### 5 8410-2 #### [facility] CLIA [id number] [address] [place] Platelet mean volume (Bld) [Entitic vol] 9.2 fL Normal 9.0-12.7 [facility] Comment on above: Order Comment: Speci men Type: BLOOD SPECIMEN Ordering Facility: [facility] Address: [address] [place] [address] Performed By: #### 5 8410-2 #### [facility] CLIA [id number] [address] [place] Platelets (Bld) [#/Vol] 166 10*3/uL Normal 150-400 [facility] Comment on above: Order Comment: Speci men Type: BLOOD SPECIMEN Ordering Facility: [facility] Address: [address] [place] [address] Performed By: #### 5 8410-2 #### [facility] CLIA [id number] [address] [place] RBC (Bld) [#/Vol] 3.07 10*6/uL Low 3.90-5.20 [facility] Comment on above: Order Comment: Speci men Type: BLOOD SPECIMEN Ordering Facility: [facility] Address: [address] [place] [address] Performed By: #### 5 8410-2 #### [facility] CLIA [id number] 1 [place] [address] [place] WBC (Bld) [#/Vol] 2.24 10*3/uL Low 3.70-11.00 [facility] Comment on above: Order Comment: Abdouli men Type: BLOOD SPECIMEN Ordering Facility: [facility] Address: [facility] [place] [address] Performed By: #### 5 8410-2 #### [facility] CLIA [id number] 1 [place] [id number] [facility] CONSULTon 11-22-2024 CONSULT HNO ID: [id number] Author: KAL HUNTER MD Service: Cardiovascular Medicine [...] reported Vfib arrest. Per chart review from [facility], patient arrived at the ED and [...] She was responsive therefore held off intubation. child monitor after this showed transient atrial fibrillation with apparent blood pressure dropping into the 70s systolic. Cardio genic shock was suspected and dopamine drip was ordered. [employer] also recommended 180 mg of Brilinta, heparin drip was started at outside hospital. Lowest documented blood pressure at the outside hospital was 79/49. No EKG or telemetry strips were provided by outside hospital. In the ED patient received 500 cc LVB, K 40mEq, aspirin, brilinta, nitro drip, fentanyl once, dopamine, and heparin drip. Patient was taken immediately to [facility] where LHC and RHC were done. PAST [...] included)... Normal [facility] Magnesium SerPl-mCncon 11-22 Magnesium [Mass/Vol] 1.7 mg/dL Normal 1.7-2.3 [facility] Comment on above: Order Comment: Speci men Type: BLOOD SPECIMEN Ordering Facility: [facility] Address: [address] [place] [address] Performed By: #### H STNT #### [facility] CLIA [id number] 1 [place] [address] [place] [facility] NURSING PROGon 11-22-2024 NURSING PROG HNO ID: [id number] Author: KAIT NUNN RN Service: Nursing Author Type: Registered Nurse Type: Nursing Progress Note Filed: 11/22/2024 19:37 Note Text: Transfer Note: PATIENT NAME: Lakesha Koch Patient Location: [place] [address] [address] 1 Room: [place] [address] Patient transferred out to room/unit 324 in stable condition. Actions taken: Report given/called to [facility]. Normal [facility] NUTRITIONon 11-22-2024 NUTRITION HNO ID: [id number] Author: VENECIA REED [address] Service: Nutrition Therapy [...] Vfib arrest. Patient is a transfer from [facility]. Recent C.difficile infection. S/p LHC and [...] at MD visit 11/18/24.) Estimated kilocalorie needs: 4968-8964 Calorie Calculation Method: 30-35 kcals/kg Estimated protein [...] 11-22 Phosphate [Mass/Vol] 2.0 mg/dL Low 2.7-4.8 [facility] Comment on above: Order Comment: Speci men Type: BLOOD SPECIMEN Ordering Facility: [facility] Address: [facility] [place] [address] Performed By: #### H STNT #### [facility] CLIA [id number] [address] OF [facility] ALLIED HEALTHon 11-21-2024 ALLIED HEALTH HNO ID: [id number] Author: ?, ?, ? Service: Infection Prevention [...] Test(s): Positive for C. difficile toxin per [place] ED encounter note 11/08/2024. SIGNATURE: Arleth Stafford PATIENT NAME: Lakesha Koch DATE: November 21, 2024 TIME: 12:43 PM PAGER/CONTACT #: Infection Prevention, [id number] Infection Prevention after hours/weekend pager: [phone] Normal [facility] BRIEF OP NOTon 11-21-2024 BRIEF OP NOT HNO ID: [id number] Author: KY GONZALEZ MD Service: Cardiovascular Medicine [...] Recommend: Continue conservative management Ky Niño MD Cushion Maker of Internal Medicine [facility] Regional Section of Interventional Cardiology Certified Prosthetist Vice President of Structural Heart Disease [place] [address], [address] [place] [address] Facsimile: [phone] Email: [email or web address] Normal [facility] Bacteria Bld Culton 11-22-19 25 Bacteria identified Cx Nom (Bld) CULTURE, BLOOD: No growth 5 days Normal [facility] Comment on above: Performed By: #### 6 00-7 ####[facility] [id number] [address] STATES OF [facility] Bacteria identified Cx Nom (Bld) CULTURE, BLOOD: No growth 5 days Normal [facility] Comment on above: Performed By: #### 6 00-7 ####[facility] [id number] [place] [address] [place] Basic metabolic 2000 panelon 11-21-2024 Anion gap [Moles/Vol] 10 mmol/L Normal 8-15 [facility] Comment on above: Order Comment: Speci men Type: URINE SPECIMEN Ordering Facility: [facility] Address: [address] [place] [address] Performed By: #### 2 4356-8 #### [facility] CLIA [id number] 1 [place] [address] [place] Calcium [Mass/Vol] 8.4 mg/dL Low 8.5-10.2 [facility] Comment on above: Order Comment: Speci men Type: URINE SPECIMEN Ordering Facility: [facility] Address: [address] [place] [address] Performed By: #### 2 4356-8 #### [facility] CLIA [id number] [address] [place] Chloride [Moles/Vol] 108 mmol/L High 98-107 [facility] Comment on above: Order Comment: Speci men Type: URINE SPECIMEN Ordering Facility: [facility] Address: [address] [place] [address] Performed By: #### 2 4356-8 #### [facility] CLIA [id number] [address] STATES OF [facility] CO2 [Moles/Vol] 22 mmol/L Normal 22-30 [facility] Comment on above: Order Comment: Speci men Type: URINE SPECIMEN Ordering Facility: [facility] Address: [address] [place] [address] Performed By: #### 2 4356-8 #### [facility] CLIA [id number] [address] STATES OF [facility] Creatinine [Mass/Vol] 0.67 mg/dL Normal 0.58-0.96 [facility] Comment on above: Order Comment: Speci men Type: URINE SPECIMEN Ordering Facility: [facility] Address: [address] [place] [address] Performed By: #### 2 4356-8 #### [facility] CLIA [id number] [address] [place] eGFRcr SerPlBld CKD-EPI 2020 97 mL/min/1.73m??? Normal >=60 [facility] Comment on above: Order Comment: Speci men Type: URINE SPECIMEN Ordering Facility: [facility] Address: [address] [place] [address] Result Comment: Sana mated Glomerular Filtration Rate [...] GFR. Performed By: #### 2 4356-8 #### [facility] CLIA [id number] [address] [place] Glucose [Mass/Vol] 113 mg/dL High 74-99 [facility] Comment on above: Order Comment: Speci men Type: URINE SPECIMEN Ordering Facility: [facility] Address: [address] [place] [address] Result Comment: The [place] Diabetes Association (ADA) provides guidance for cutoff [...] Standards of Medical Care in Diabetes 2016, [place] [employer]. Diabetes Care. 2016.39(Suppl 1). Performed By: #### 2 4356-8 #### [facility] CLIA [id number] 1 [place] [address] [place] Potassium [Moles/Vol] 4.4 mmol/L Normal 3.7-5.1 [facility] Comment on above: Order Comment: Speci men Type: URINE SPECIMEN Ordering Facility: [facility] Address: [address] [place] [address] Performed By: #### 2 4356-8 #### [facility] CLIA [id number] 1 [place] [address] [place] Sodium [Moles/Vol] 140 mmol/L Normal 136-144 [facility] Comment on above: Order Comment: Speci men Type: URINE SPECIMEN Ordering Facility: [facility] Address: [address] [place] [address] Performed By: #### 2 4356-8 #### [facility] CLIA [id number] 1 [place] [address] [place] Urea nitrogen [Mass/Vol] 15 mg/dL Normal 7-21 [facility] Comment on above: Order Comment: Speci men Type: URINE SPECIMEN Ordering Facility: [facility] Address: [address] [place] [address] Performed By: #### 2 4356-8 #### [facility] CLIA [id number] [address] [place] CARD CATH DIAGNOSTICon 11-21 CARD CATH DIAGNOSTIC Site Id: [facility] Lab #: DEFAULT Study Date: 11/21/2024 Start Time: End Time: Name Duty Ky Niño MD PROC MD 1 Chevy Cortez RN PROC SCRUB 1 Juan Jose Carballo RN PROC CIRC 1 Lisbeth Whitten RN PROC RECORD 1 + + PATIENT INFORMATION + + Name: [facility] : 1960 Age: 64 years Gender: [...] Patient presents as a STEMI transfer from [facility] and V-fib arrest in the emergency room. Brought to the [facility] emergently for heart catheterization. + + DIAGNOSTIC [...] at Disch (more content not included)... Normal [facility] CBC W Auto Differential pane l (Bld)on 11-21-2024 Basophils (Bld) [#/Vol] 10*3/uL Normal <0.11 [facility] Comment on above: Order Comment: Speci men Type: URINE SPECIMEN Ordering Facility: [facility] Address: [address] [place] [address] Performed By: #### 2 4356-8 #### [facility] CLIA [id number] [address] Basophils/100 WBC (Bld) 0.4 % Normal [facility] Comment on above: Order Comment: Speci men Type: URINE SPECIMEN Ordering Facility: [facility] Address: [address] [place] [address] Performed By: #### 2 4356-8 #### [facility] CLIA [id number] [address] Differential cell count method Nom (Bld) Auto Normal [facility] Comment on above: Order Comment: Speci men Type: URINE SPECIMEN Ordering Facility: [facility] Address: [address] [place] [address] Performed By: #### 2 4356-8 #### [facility] CLIA [id number] [address] [place] Eosinophils (Bld) [#/Vol] 10*3/uL Normal <0.46 [facility] Comment on above: Order Comment: Speci men Type: URINE SPECIMEN Ordering Facility: [facility] Address: [address] [place] [address] Performed By: #### 2 4356-8 #### [facility] CLIA [id number] [address] [place] Eosinophils/100 WBC (Bld) 0.0 % Normal [facility] Comment on above: Order Comment: Speci men Type: URINE SPECIMEN Ordering Facility: [facility] Address: [address] [place] [address] Performed By: #### 2 4356-8 #### [facility] CLIA [id number] [address] [place] Immature granulocytes (Bld) [#/Vol] 10*3/uL Normal <0.10 [facility] Comment on above: Order Comment: Speci men Type: URINE SPECIMEN Ordering Facility: [facility] Address: [address] [place] [address] Performed By: #### 2 4356-8 #### [facility] CLIA [id number] [address] [place] Immature granulocytes/100 WBC (Bld) 0.4 % Normal [facility] Comment on above: Order Comment: Speci men Type: URINE SPECIMEN Ordering Facility: [facility] Address: [address] [place] [address] Performed By: #### 2 4356-8 #### [facility] CLIA [id number] [address] [place] Lymphocytes (Bld) [#/Vol] 0.75 10*3/uL Low 1.00-4.00 [facility] Comment on above: Order Comment: Speci men Type: URINE SPECIMEN Ordering Facility: [facility] Address: [address] [place] [address] Performed By: #### 2 4356-8 #### [facility] CLIA [id number] [address] [place] Lymphocytes/100 WBC (Bld) 16.1 % Normal [facility] Comment on above: Order Comment: Speci men Type: URINE SPECIMEN Ordering Facility: [facility] Address: [address] [place] [address] Performed By: #### 2 4356-8 #### [facility] CLIA [id number] [address] [place] Monocytes (Bld) [#/Vol] 0.38 10*3/uL Normal <0.87 [facility] Comment on above: Order Comment: Speci men Type: URINE SPECIMEN Ordering Facility: [facility] Address: [address] [place] [address] Performed By: #### 2 4356-8 #### [facility] CLIA [id number] [address] [place] Monocytes/100 WBC (Bld) 8.2 % Normal [facility] Comment on above: Order Comment: Speci men Type: URINE SPECIMEN Ordering Facility: [facility] Address: [address] [place] [address] Performed By: #### 2 4356-8 #### [facility] CLIA [id number] [address] [place] Neutrophils (Bld) [#/Vol] 3.48 10*3/uL Normal 1.45-7.50 [facility] Comment on above: Order Comment: Speci men Type: URINE SPECIMEN Ordering Facility: [facility] Address: [address] [place] [address] Performed By: #### 2 4356-8 #### [facility] CLIA [id number] [address] Neutrophils/100 WBC (Bld) 74.9 % Normal [facility] Comment on above: Order Comment: Speci men Type: URINE SPECIMEN Ordering Facility: [facility] Address: [address] [place] [address] Performed By: #### 2 4356-8 #### [facility] CLIA [id number] [address] [place] CBC W/Diff, Automatedon 08-2 Absolute Neut Normal 2.0-7.7 [facility] Comment on above: Result Comment: Canc elled via OM: Order cancelled - Patient discharged Performed By: #### L 100.0100 ####[facility] [address] [place], [address] HCT Normal 37-47 [facility] Comment on above: Result Comment: Canc elled via OM: Order cancelled - Patient discharged Performed By: #### L 100.0100 ####[facility] [address] [place], [address] HGB Normal 12.0-15.0 [facility] Comment on above: Result Comment: Canc elled via OM: Order cancelled - Patient discharged Performed By: #### L 100.0100 ####[facility] [address] [place], [address] MCH Normal 27.0-32.0 [facility] Comment on above: Result Comment: Canc elled via OM: Order cancelled - Patient discharged Performed By: #### L 100.0100 ####[facility] [address] [place], [address] MCHC Normal 32-36 [facility] Comment on above: Result Comment: Canc elled via OM: Order cancelled - Patient discharged Performed By: #### L 100.0100 ####[facility] [address] [place], [address] MCV Normal 81-99 [facility] Comment on above: Result Comment: Canc elled via OM: Order cancelled - Patient discharged Performed By: #### L 100.0100 ####[facility] [address] [place], [address] NEUT% Normal 47-70 [facility] Comment on above: Result Comment: Canc elled via OM: Order cancelled - Patient discharged Performed By: #### L 100.0100 ####[facility] [address] [place], [address] PLT Normal 150-450 [facility] Comment on above: Result Comment: Canc elled via OM: Order cancelled - Patient discharged Performed By: #### L 100.0100 ####[facility] [address] [place], [address] RBC Normal 4.2-5.4 [facility] Comment on above: Result Comment: Canc elled via OM: Order cancelled - Patient discharged Performed By: #### L 100.0100 ####[facility] [address] [place], [address] RDW CV Normal 11.6-14.6 [facility] Comment on above: Result Comment: Canc elled via OM: Order cancelled - Patient discharged Performed By: #### L 100.0100 ####[facility] [address] [place], [address] RDW SD Normal 35.1-43.9 [facility] Comment on above: Result Comment: Canc elled via OM: Order cancelled - Patient discharged Performed By: #### L 100.0100 ####[facility] [address] [place], [address] WBC Normal 4.4-11.0 [facility] Comment on above: Result Comment: Canc elled via OM: Order cancelled - Patient discharged Performed By: #### L 100.0100 ####[facility] [address] [place], [address] CBC panel Auto (Bld)on 11-21 Erythrocyte distribution width (RBC) [Ratio] 14.6 % Normal 11.5-15.0 [facility] Comment on above: Order Comment: Speci men Type: URINE SPECIMEN Ordering Facility: [facility] Address: [address] [place] [address] Performed By: #### 2 4356-8 #### [facility] CLIA [id number] 1 [place] [address] [place] Hematocrit (Bld) [Volume fraction] 30.3 % Low 36.0-46.0 [facility] Comment on above: Order Comment: Speci men Type: URINE SPECIMEN Ordering Facility: [facility] Address: [address] [place] [address] Performed By: #### 2 4356-8 #### [facility] CLIA [id number] [address] Hemoglobin (Bld) [Mass/Vol] 10.6 g/dL Low 11.5-15.5 [facility] Comment on above: Order Comment: Speci men Type: URINE SPECIMEN Ordering Facility: [facility] Address: [address] [place] [address] Performed By: #### 2 4356-8 #### [facility] CLIA [id number] [address] MCH (RBC) [Entitic mass] 31.0 pg Normal 26.0-34.0 [facility] Comment on above: Order Comment: Speci men Type: URINE SPECIMEN Ordering Facility: [facility] Address: [address] [place] [address] Performed By: #### 2 4356-8 #### [facility] CLIA [id number] [address] MCHC (RBC) [Mass/Vol] 35.0 g/dL Normal 30.5-36.0 [facility] Comment on above: Order Comment: Speci men Type: URINE SPECIMEN Ordering Facility: [facility] Address: [address] [place] [address] Performed By: #### 2 4356-8 #### [facility] CLIA [id number] [address] MCV (RBC) [Entitic vol] 88.6 fL Normal 80.0-100.0 [facility] Comment on above: Order Comment: Speci men Type: URINE SPECIMEN Ordering Facility: [facility] Address: [address] [place] [address] Performed By: #### 2 4356-8 #### [facility] CLIA [id number] [address] Nucleated RBC (Bld) [#/Vol] 10*3/uL Normal <0.01 [facility] Comment on above: Order Comment: Speci men Type: URINE SPECIMEN Ordering Facility: [facility] Address: [address] [place] [address] Performed By: #### 2 4356-8 #### [facility] CLIA [id number] [address] [place] Platelet mean volume (Bld) [Entitic vol] 9.1 fL Normal 9.0-12.7 [facility] Comment on above: Order Comment: Speci men Type: URINE SPECIMEN Ordering Facility: [facility] Address: [address] [place] [address] Performed By: #### 2 4356-8 #### [facility] CLIA [id number] [address] [place] Platelets (Bld) [#/Vol] 204 10*3/uL Normal 150-400 [facility] Comment on above: Order Comment: Speci men Type: URINE SPECIMEN Ordering Facility: [facility] Address: [address] [place] [address] Performed By: #### 2 4356-8 #### [facility] CLIA [id number] 1 [place] [address] [place] RBC (Bld) [#/Vol] 3.42 10*6/uL Low 3.90-5.20 [facility] Comment on above: Order Comment: Speci men Type: URINE SPECIMEN Ordering Facility: [facility] Address: [address] [place] [address] Performed By: #### 2 4356-8 #### [facility] CLIA [id number] [address] [place] WBC (Bld) [#/Vol] 4.62 10*3/uL Normal 3.70-11.00 [facility] Comment on above: Order Comment: Speci men Type: URINE SPECIMEN Ordering Facility: [facility] Address: [address] [place] [address] Performed By: #### 2 4356-8 #### [facility] CLIA [id number] [address] [place] CNCRITCRon 11-21-2024 CNCRITCR Normal [facility] CNPNon 11-21-2024 CNPN Normal [facility] CRP SerPl-mCncon 11-21-2024 CRP [Mass/Vol] 2.6 mg/dL High <0.9 [facility] Comment on above: Order Comment: Speci men Type: URINE SPECIMEN Ordering Facility: [facility] Address: [address] [place] [address] Performed By: #### 2 4356-8 #### [facility] CLIA [id number] [address] Comprehensive metabolic 2000 panelon 11-21-2024 Albumin [Mass/Vol] 3.6 g/dL Low 3.9-4.9 [facility] Comment on above: Order Comment: Speci men Type: BLOOD SPECIMEN Ordering Facility: [facility] Address: [address] [place] [address] Performed By: #### 2 4323-8, 277-1, 15613-3, LIPNF #### [facility] CLIA [id number] [address] [place] ALP [Catalytic activity/Vol] 62 U/L Normal 34-123 [facility] Comment on above: Order Comment: Speci men Type: BLOOD SPECIMEN Ordering Facility: [facility] Address: [address] [place] [address] Performed By: #### 2 4323-8, 2777-1, 38616-7, LIPNF #### [facility] CLIA [id number] [address] [place] ALT With P-5'-P [Catalytic activity/Vol] 15 U/L Normal 7-38 [facility] Comment on above: Order Comment: Speci men Type: BLOOD SPECIMEN Ordering Facility: [facility] Address: [address] [place] [address] Performed By: #### 2 4323-8, 2777-1, , LIPNF #### [facility] CLIA [id number] [address] STATES OF [facility] Anion gap [Moles/Vol] 15 mmol/L Normal 8-15 [facility] Comment on above: Order Comment: Speci men Type: BLOOD SPECIMEN Ordering Facility: [facility] Address: [address] [place] [address] Performed By: #### 2 4323-8, 2776-03, , LIPNF #### [facility] CLIA [id number] [address] STATES OF [facility] AST With P-5'-P [Catalytic activity/Vol] 32 U/L Normal 13-35 [facility] Comment on above: Order Comment: Speci men Type: BLOOD SPECIMEN Ordering Facility: [facility] Address: [address] [place] [address] Performed By: #### 2 4323-8, 2776-03, , LIPNF #### [facility] CLIA [id number] [address] STATES OF [facility] Bilirubin [Mass/Vol] 0.4 mg/dL Normal 0.2-1.3 [facility] Comment on above: Order Comment: Speci men Type: BLOOD SPECIMEN Ordering Facility: [facility] Address: [address] [place] [address] Performed By: #### 2 4323-8, 2776-03, , LIPNF #### [facility] CLIA [id number] [address] [place] Calcium [Mass/Vol] 7.9 mg/dL Low 8.5-10.2 [facility] Comment on above: Order Comment: Speci men Type: BLOOD SPECIMEN Ordering Facility: [facility] Address: [address] [place] [address] Performed By: #### 2 4323-8, 2776-03, , LIPNF #### [facility] CLIA [id number] [address] [place] Chloride [Moles/Vol] 105 mmol/L Normal 98-107 [facility] Comment on above: Order Comment: Speckhai baugh Type: BLOOD SPECIMEN Ordering Facility: [facility] Address: [address] [place] [address] Performed By: #### 2 4323-8, 2777-1, 46139-0, LIPNF #### [facility] CLIA [id number] [address] OF [facility] CO2 [Moles/Vol] 17 mmol/L Low 22-30 [facility] Comment on above: Order Comment: Speci men Type: BLOOD SPECIMEN Ordering Facility: [facility] Address: [address] [place] [address] Performed By: #### 2 4323-8, 2777-1, 15289-5, LIPNF #### [facility] CLIA [id number] [address] Creatinine [Mass/Vol] 0.70 mg/dL Normal 0.58-0.96 [facility] Comment on above: Order Comment: Speci men Type: BLOOD SPECIMEN Ordering Facility: [facility] Address: [address] [place] [address] Performed By: #### 2 4323-8, 2777-1, 14481-9, LIPNF #### [facility] CLIA [id number] [address] eGFRcr SerPlBld CKD-EPI 2020 96 mL/min/1.73m??? Normal >=60 [facility] Comment on above: Order Comment: Speckhai men Type: BLOOD SPECIMEN Ordering Facility: [facility] Address: [address] [place] [address] Result Comment: Sana mated Glomerular Filtration Rate [...] GFR. Performed By: #### 2 4323-8, 2777-1, 72179-2, LIPNF #### [facility] CLIA [id number] 1 [place] [address] [place] Glucose [Mass/Vol] 196 mg/dL High 74-99 [facility] Comment on above: Order Comment: Speci men Type: BLOOD SPECIMEN Ordering Facility: [facility] Address: [address] [place] [address] Result Comment: The [place] Diabetes Association (ADA) provides guidance for cutoff [...] Standards of Medical Care in Diabetes 2016, [place] [employer] Association. Diabetes Care. 2016.39(Suppl 1). Performed By: #### 2 4323-8, 277-, , LIPNF #### [facility] CLIA [id number] 1 [place] [address] [place] Potassium [Moles/Vol] 3.1 mmol/L Low 3.7-5.1 [facility] Comment on above: Order Comment: Abdouli men Type: BLOOD SPECIMEN Ordering Facility: [facility] Address: [address] [place] [address] Performed By: #### 2 4323-8, 2777-, , LIPNF #### [facility] CLIA [id number] 1 [place] [address] [place] Protein [Mass/Vol] 6.1 g/dL Low 6.3-8.0 [facility] Comment on above: Order Comment: Speci men Type: BLOOD SPECIMEN Ordering Facility: [facility] Address: [address] [place] [address] Performed By: #### 2 4323-8, 2777-1, 16417-0, LIPNF #### [facility] CLIA [id number] [address] [place] Sodium [Moles/Vol] 137 mmol/L Normal 136-144 [facility] Comment on above: Order Comment: Speci men Type: BLOOD SPECIMEN Ordering Facility: [facility] Address: [address] [place] [address] Performed By: #### 2 4323-8, 2777-1, 73997-8, LIPNF #### [facility] CLIA [id number] [address] [place] Urea nitrogen [Mass/Vol] 22 mg/dL High 7-21 [facility] Comment on above: Order Comment: Speci men Type: BLOOD SPECIMEN Ordering Facility: [facility] Address: [address] [place] [address] Performed By: #### 2 4323-8, 2777-1, 40586-3, LIPNF #### [facility] CLIA [id number] [address] [place] ECG COMPLETEon 11-21-2024 ECG COMPLETE Ventricular Rate : 1 14 BPM Atrial Rate : 114 BPM P-R Interval : 112 ms QRS Duration : 96 ms Q-T Interval : 438 ms QTC Calculation(Bazett) : 603 ms Calculated P David : 78 degrees Calculated R David : 23 degrees Calculated T David : 95 degrees SINUS TACHYCARDIA T WAVE ABNORMALITY, CONSIDER LATERAL ISCHEMIA PROLONGED QT ABNORMAL ECG NO PREVIOUS ECGS AVAILABLE Confirmed by MD VILLEDA YASSAR ([id number]) on 11/22/2024 1:26:49 PM NAME : LAKESHA KOCH PID : [id number] : 1960 Gender : Female Race : ORD : [id number] Procedure Date : Nov 21 2024 06:26:12 Edit Date : Nov 22 2024 13:26:51 Diagnosis: SINUS TACHYCARDIA T WAVE ABNORMALITY, CONSIDER LATERAL ISCHEMIA PROLONGED QT ABNORMAL ECG NO PREVIOUS ECGS AVAILABLE Confirmed by MD VILLEDA YASSAR ([id number]) on 11/22/2024 1:26:49 PM Test Reason : Arrhythmia Location : 200 : [facility] 3241 Overread By : MD VILLEDA YASSAR Edited By : MD VILLEDA YASSAR Referred By : KAVIN ADAMS Acquired by : MARIE MEDINA [facility] ECHO WITH AGITATED SALINE CO NTRASTon 11-21-2024 ECHO WITH AGITATED SALINE CONTRAST Echocardiography Report: Transthoracic Echo [facility] Date of service: 11/21/2024 9:56:[facility] Ordering physician: KY GONZALEZ Exam indication: [...] - Exam was compared with the prior CC echocardiographic exam performed on 09/18/2023. Mildly reduced LVEF with focal wall motion abnormalities on today's echo. Pericardial effusion has decreased in size. * * * Final (Updated) * * * [email or web address] : [id number] Normal [facility] ESR Westergren method (Bld) [Velocity]on 11-21-2024 ESR (Bld) [Velocity] 16 mm/h Normal 0-20 [facility] Comment on above: Order Comment: Speci men Type: URINE SPECIMEN Ordering Facility: [facility] Address: [address] [address] [place] [address] Performed By: #### 2 4356-8 #### [facility] CLIA [id number] [address] HIGH SENSITIVITY TROPONIN To n 11-21-2024 Troponin T.cardiac High sensitivity method [Mass/Vol] 107 ng/L High <12 [facility] Comment on above: Order Comment: Speci men Type: BLOOD SPECIMEN Ordering Facility: [facility] Address: [address] [place] [address] Performed By: #### H STNT #### [facility] CLIA [id number] [address] Troponin T.cardiac High sensitivity method [Mass/Vol] 132 ng/L High <12 [facility] Comment on above: Order Comment: Speci men Type: BLOOD SPECIMEN Ordering Facility: [facility] Address: [address] [place] [address] Performed By: #### H STNT #### [facility] CLIA [id number] [address] HISTORY PHYSICALon HISTORY PHYSICAL HNO ID: [id number] Author: KY GONZALEZ MD Service: Cardiovascular Medicine Author Type: Physician Type: H&P Filed: 12/14/2024 12:08 Note Text: [facility] STAFF PHYSICIAN NOTE OF PERSONAL INVOLVEMENT IN CARE IMPRESSION: Patient is a 64 year old female with a known past medical history of severe malnutrition, recent C. 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 This patient was transferred directly from [facility] after having what was labeled as V-fib arrest where she was defibrillated twice achieving ROSC, not intubated, transferred directly to the [employer] [facility]. Minimal information was given and no EKG was available for review. Patient was seen and examined on arrival to the [employer] [facility] and she complained of mild chest discomfort [...] - recent c diff Patient presented to [facility] on 11/21/2024 for evaluation of STEMI inferolateral.Patient is a transfer for [facility], went straight to [facility]. There is no EKG was brought from [...] Paperwork showed labs that were done in [facility]: CBC BMP unremarkable, just hypokalemia 3.0 Trop [...] Mouth/Throat: M (more content not included)... Normal [facility] HbA1c (Bld)on 11-21-2024 Average glucose Estimated from glycated hemoglobin (Bld) [Mass/Vol] 108 mg/dL Normal [facility] Comment on above: Order Comment: Speci men Type: BLOOD SPECIMENOrdering Facility: [facility] Address: [address] [place] [address] Result Comment: eAG: (Estimated average glucose) is a calculated value from HgbA1c and is pharmaceutical representative of the average blood glucose level in the last 2-3 month period. Performed By: #### 5 5454-3 ####[facility] [id number] [place] [address] [place] HbA1c (Bld) [Mass fraction] 5.4 % Normal 4.3-5.6 [facility] Comment on above: Order Comment: Speci men Type: BLOOD SPECIMENOrdering Facility: [facility] Address: [address] [place] [address] Result Comment: Amer [place] Diabetes Association guidelines indicate that patients with HgbA1c in the range 5.7-6.4% are at increased risk for development of diabetes, and intervention by lifestyle modification may be beneficial. HgbA1c greater or equal to 6.5% is considered diagnostic of diabetes. Performed By: #### 5 5454-3 ####[facility] [id number] [address] [place] LIPID PANEL, NONFASTINGon Cholesterol [Mass/Vol] 111 mg/dL Normal <200 [facility] Comment on above: Order Comment: Umesh baugh Type: BLOOD SPECIMEN Ordering Facility: [facility] Address: [address] [place] [address] Result Comment: <200 mg/dL, Desirable 200-239 mg/dL, Borderline high >239 mg/dL, High Performed By: #### 2 4323-8, 2777-1, , LIPNF #### [facility] CLIA [id number] [address] STATES [facility] HDL CHOLESTEROL, NF 64 mg/dL Normal >39 [facility] Comment on above: Order Comment: Umesh baugh Type: BLOOD SPECIMEN Ordering Facility: [facility] Address: [address] [place] [address] Result Comment: 40-5 9 mg/dL, Acceptable >59 mg/dL, High: Negative risk factor for coronary heart disease <40 mg/dL, Low: Positive risk factor for coronary heart disease Performed By: #### 2 4323-8, 2777-1, , LIPNF #### [facility] CLIA [id number] [address] LDL CHOLESTEROL CALCULATED, NF 25 mg/dL Normal <100 [facility] Comment on above: Order Comment: Umesh baugh Type: BLOOD SPECIMEN Ordering Facility: [facility] Address: [address] [place] [address] Result Comment: <100 mg/dL, Optimal 100-129 mg/dL, Near optimal/above optimal 130-159 mg/dL, Borderline high 160-189 mg/dL, High >189 mg/dL, Very high Secondary prevention optimal LDL Cholesterol levels are recommended to be <70 mg/dL LDL cholesterol is calculated using the Leon-NIH equation. Performed By: #### 2 4323-8, 2777-1, 38617-0, LIPNF #### [facility] CLIA [id number] [address] LDL/HDL RATIO, NF 0.39 mg/dL Normal <2.54 [facility] Comment on above: Order Comment: Umesh abugh Type: BLOOD SPECIMEN Ordering Facility: [facility] Address: [address] [place] [address] Result Comment: Refe rence: 1. National Cholesterol Education Program ATP III Guideline At-A-Glance Quick Desk Reference: National Heart, Lung, and Blood [place]. National Institutes of Health. 2001: NIH Publication No. 01-3305. 2. An International Atherosclerosis Society position paper: global recommendations for the management of dyslipidemia: executive summary, Atherosclerosis. 2014: 232(2):410-413. Performed By: #### 2 4323-8, 2777-, , LIPNF #### [facility] CLIA [id number] [address] NON HDL CHOL, NF 47 mg/dL Normal <130 [facility] Comment on above: Order Comment: Umesh baugh Type: BLOOD SPECIMEN Ordering Facility: [facility] Address: [address] [place] [address] Result Comment: <130 mg/dL, Optimal 130-159 mg/dL, Near optimal/above optimal 160-189 mg/dL, Borderline high 190-219 mg/dL, High >219 mg/dL, Very high Secondary prevention optimal non HDL Cholesterol levels are recommended to be <100 mg/dL Performed By: #### 2 4323-8, 2777-1, 96298-1, LIPNF #### [facility] CLIA [id number] [address] T CHOL/HDL RATIO NF 1.73 mg/dL Normal <5.10 [facility] Comment on above: Order Comment: Umesh baugh Type: BLOOD SPECIMEN Ordering Facility: [facility] Address: [address] [place] [address] Performed By: #### 2 4323-8, 277-, , LIPNF #### [facility] CLIA [id number] [address] [place] TRIGLYCERIDES, NF 125 mg/dL Normal <150 [facility] Comment on above: Order Comment: Speci men Type: BLOOD SPECIMEN Ordering Facility: [facility] Address: [address] [place] [address] Result Comment: <150 mg/dL, Normal 150-199 mg/dL, Borderline high 200-499 mg/dL, High >499 mg/dL, Very high Performed By: #### 2 4323-8, 27709-24, , LIPNF #### [facility] CLIA [id number] [address] [place] VLDL CHOLESTEROL, NF 16 mg/dL Normal <30 [facility] Comment on above: Order Comment: Speci men Type: BLOOD SPECIMEN Ordering Facility: [facility] Address: [address] [place] [address] Performed By: #### 2 4323-8, 2776-, , LIPNF #### [facility] CLIA [id number] 1 [place] [address] [place] Lactate (Bld) [Moles/Vol]on 11-21-2024 Lactate [Moles/Vol] 1.4 mmol/L Normal 0.5-2.2 [facility] Comment on above: Order Comment: Speci men Type: BLOOD SPECIMEN Ordering Facility: [facility] Address: [address] [place] [address] Performed By: #### 3 2693-4 #### [facility] CLIA [id number] 1 [place] [address] [place] Lactate [Moles/Vol] 1.9 mmol/L Normal 0.5-2.2 [facility] Comment on above: Order Comment: Speci men Type: URINE SPECIMEN Ordering Facility: [facility] Address: [address] [place] [address] Performed By: #### 2 4356-8 #### [facility] CLIA [id number] 1 [place] [address] [place] Magnesium SerPl-mCncon 11-21 Magnesium [Mass/Vol] 1.7 mg/dL Normal 1.7-2.3 [facility] Comment on above: Order Comment: Speci men Type: BLOOD SPECIMENOrdering Facility: [facility] Address: [address] [place] [address] Performed By: #### 2 4323-8, 2777-1, 39417-1, LIPNF ####[facility] [id number] [place] [address] [place] Phosphate SerPl-mCncon 11-21 Phosphate [Mass/Vol] 2.8 mg/dL Normal 2.7-4.8 [facility] Comment on above: Order Comment: Speci men Type: BLOOD SPECIMENOrdering Facility: [facility] Address: [address] [place] [address] Performed By: #### 2 4323-8, 2777-1, 82259-7, LIPNF ####[facility] [id number] [place] [address] [place] STAPHYLOCOCCUS AUREUS AND MR SA SCREEN, PCR, NASALon 11-21-2024 S. aureus and MRSA panel SAUNDRA+probe (Nose) Not detected Normal Not Detected [facility] Comment on above: Order Comment: Speci men Type: URINE SPECIMEN Ordering Facility: [facility] Address: [address] [place] [address] Performed By: #### 2 4356-8 #### [facility] CLIA [id number] 1 [place] [address] [place] Troponin T HS 2 HRon 025 Trop T High Sen 82 ng/L Invalid Interpretation Code <=14 [facility] Comment on above: Result Comment: Crit ical Result(s) Called at:01:25 11-21-24 ann weir:??Tricia Bowman Results read back by same. Performed By: #### L 499.0042 ####[facility] [address] [place], [address] Troponin T HS 4 HRon 025 Trop T High Sen Normal <=14 [facility] Comment on above: Result Comment: PT D ISCHARGED Performed By: #### L 499.0043 ####[facility] [address] [place], [address] Troponin T.cardiac [Mass/vol ume] in Serum or Plasma by High sensitivity methodOrdered By: Kavin Adams on 11-21-2024 Troponin T.cardiac High sensitivity method [Mass/Vol] 82 ng/L Critically high <14 [facility] Comment on above: Critical Result(s) C alled at:01:25 11-21-24 ann sparr by: Tricia Bowman Results read back by same. Urinalysis complete panel (U )on 11-21-2024 Bilirubin Ql (U) Negative Normal Negative [facility] Comment on above: Order Comment: Speci men Type: URINE SPECIMEN Ordering Facility: [facility] Address: [address] [place] [address] Performed By: #### 2 4356-8 #### [facility] [facility] CLIA [id number] [address] [place] Clarity (Unsp spec) Clear Normal Clear [facility] Comment on above: Order Comment: Speci men Type: URINE SPECIMEN Ordering Facility: [facility] Address: [address] [place] [address] Performed By: #### 2 4356-8 #### [facility] CLIA [id number] [address] Color (U) Colorless Normal yellow [facility] Comment on above: Order Comment: Speci men Type: URINE SPECIMEN Ordering Facility: [facility] Address: [address] [place] [address] Performed By: #### 2 4356-8 #### [facility] CLIA [id number] [address] Glucose Test strip (U) [Mass/Vol] Negative Normal Trace, Negative [facility] Comment on above: Order Comment: Speci men Type: URINE SPECIMEN Ordering Facility: [facility] Address: [facility] [place] [address] Performed By: #### 2 4356-8 #### [facility] CLIA [id number] [address] [place] Hemoglobin Ql (U) Negative Normal Negative, Trace [facility] Comment on above: Order Comment: Speci men Type: URINE SPECIMEN Ordering Facility: [facility] Address: [address] [place] [address] Performed By: #### 2 4356-8 #### [facility] CLIA [id number] [address] OF [facility] Hyaline casts (Urine sed) [#/Area] 1-3 /LPF Abnormal 0 /LPF [facility] Comment on above: Order Comment: Speci men Type: URINE SPECIMEN Ordering Facility: [facility] Address: [address] [place] [address] Performed By: #### 2 4356-8 #### [facility] CLIA [id number] [address] Ketones Ql (U) Negative Normal Negative, Trace [facility] Comment on above: Order Comment: Speci men Type: URINE SPECIMEN Ordering Facility: [facility] Address: [address] [place] [address] Performed By: #### 2 4356-8 #### [facility] CLIA [id number] [address] [place] Leukocyte esterase Test strip Ql (U) Negative Normal Negative, 25 Adeola/uL [facility] Comment on above: Order Comment: Speci men Type: URINE SPECIMEN Ordering Facility: [facility] Address: [address] [place] [address] Performed By: #### 2 4356-8 #### [facility] CLIA [id number] [address] [place] Nitrite Ql (U) Negative Normal Negative [facility] Comment on above: Order Comment: Speci men Type: URINE SPECIMEN Ordering Facility: [facility] Address: [address] [place] [address] Performed By: #### 2 4356-8 #### [facility] CLIA [id number] [address] STATES [facility] pH (U) 5.5 [pH] Normal 5.0-8.0 [facility] Comment on above: Order Comment: Speci men Type: URINE SPECIMEN Ordering Facility: [facility] Address: [address] [place] [address] Performed By: #### 2 4356-8 #### [facility] CLIA [id number] [address] STATES [facility] Protein (U) [Mass/Vol] Negative Normal Trace, Negative [facility] Comment on above: Order Comment: Speci men Type: URINE SPECIMEN Ordering Facility: [facility] Address: [address] [place] [address] Performed By: #### 2 4356-8 #### [facility] CLIA [id number] [address] STATES [facility] RBC LM.HPF (Urine sed) [#/Area] 0-3 /HPF Normal 0-3 /HPF [facility] Comment on above: Order Comment: Speci men Type: URINE SPECIMEN Ordering Facility: [facility] Address: [address] [place] [address] Performed By: #### 2 4356-8 #### [facility] CLIA [id number] [address] [place] Specific gravity (U) [Rel density] 1.021 Normal 1.005-1.03 0 [facility] Comment on above: Order Comment: Speci men Type: URINE SPECIMEN Ordering Facility: [facility] Address: [address] [place] [address] Performed By: #### 2 4356-8 #### [facility] CLIA [id number] [address] Urobilinogen Ql (U) Normal Normal Normal [facility] Comment on above: Order Comment: Speci men Type: URINE SPECIMEN Ordering Facility: [facility] Address: [address] [place] [address] Performed By: #### 2 4356-8 #### [facility] CLIA [id number] [address] WBC LM.HPF (Urine sed) [#/Area] 0-5 /HPF Normal 0-5 /HPF [facility] Comment on above: Order Comment: Speci men Type: URINE SPECIMEN Ordering Facility: [facility] Address: [address] [place] [address] Performed By: #### 2 4356-8 #### [facility] CLIA [id number] [address] 12 Lead EKGon 11-20-2024 12 Lead EKG Normal [facility] 12 Lead EKG Normal [facility] Absolute lymphocyte countOrd ered By: Kavin Adams on 11-20-2024 Lymphocytes Auto (Unsp spec) [#/Vol] 1.78 10*3/uL 0.83-4.51 [facility] Absolute neutrophil countOrd ered By: Kavin Adams on 11-20-2024 Neutrophils (Bld) [#/Vol] 3.5 10*3/uL 2.0-7.7 [facility] Activated partial thrombopla stin time (aPTT) in platelet poor plasma by coagulation aOrdered By: Kavin Adams on 11-20-2024 aPTT Coag (PPP) [Time] 22.2 s Low 24.1-36.2 [facility] Anion gap in Serum or Plasma Ordered By: Kavin Adams on 11-20-2024 Anion gap [Moles/Vol] 20 mmol/L High 5-15 [facility] Automated lymphocyte count a s percentage of total leukocytesOrdered By: Kavin Adams on 11-20-2024 Lymphocytes/100 WBC Auto (Unsp spec) 30.9 % 19-41 [facility] BUN/creatinine ratioOrdered By: Kavin Adams on 11-20-2024 Urea nitrogen/Creatinine [Mass ratio] 30.1 mg/mg High 10- [facility] Basic Metabolic Profile (BMP )on 11-20-2024 BUN/CRE 30.1 RATIO High [facility] Comment on above: Performed By: #### L 300.4310, L501.4021, L300.3900, L100.0100, L500.2500 ####[facility] [address] [place], [address] Calcium [Mass/Vol] 9.5 mg/dL Normal 7.6-11.0 [facility] Comment on above: Performed By: #### L 300.4310, L501.4021, L300.3900, L100.0100, L500.2500 ####[facility] [address] [place], [address] Chloride [Moles/Vol] 100 mmol/L Normal 98-108 [facility] Comment on above: Performed By: #### L 300.4310, L501.4021, L300.3900, L100.0100, L500.2500 ####[facility] [address] [place], [address] CO2 [Moles/Vol] 19.7 mmol/L Low 21.0-32.0 [facility] Comment on above: Performed By: #### L 300.4310, L501.4021, L300.3900, L100.0100, L500.2500 ####[facility] [address] [place], [address] Creatinine [Mass/Vol] 1.06 mg/dL Normal 0.70-1.20 [facility] Comment on above: Performed By: #### L 300.4310, L501.4021, L300.3900, L100.0100, L500.2500 ####[facility] [address] [place], [address] ECRCL 36.67 ml/min Low 50-250 [facility] Comment on above: Performed By: #### L 300.4310, L501.4021, L300.3900, L100.0100, L500.2500 ####[facility] [address] [place], [address] GAP 20 High 5-15 [facility] Comment on above: Performed By: #### L 300.4310, L501.4021, L300.3900, L100.0100, L500.2500 ####[facility] [address] [place], [address] GFR/1.73 sq M.predicted among non-blacks MDRD (S/P/Bld) [Vol rate/Area] 58 mL/min/{1.73_m2} Low >60 [facility] Comment on above: Result Comment: mL/m in/1.73m2 CKD-EPI Creatinine Equation (2020) Performed By: #### L 300.4310, L501.4021, L300.3900, L100.0100, L500.2500 ####[facility] [address] [place], [address] Glucose [Mass/Vol] 162 mg/dL High 70-99 [facility] Comment on above: Performed By: #### L 300.4310, L501.4021, L300.3900, L100.0100, L500.2500 ####[facility] [address] [place], [address] Potassium [Moles/Vol] 3.0 mmol/L Low 3.3-5.1 [facility] Comment on above: Result Comment: Hemo lysis present, Results??could be affected.?? Performed By: #### L 300.4310, L501.4021, L300.3900, L100.0100, L500.2500 ####[facility] [address] [place], [address] Sodium [Moles/Vol] 140 mmol/L Normal 133-145 [facility] Comment on above: Performed By: #### L 300.4310, L501.4021, L300.3900, L100.0100, L500.2500 ####[facility] [address] [place], [address] Urea nitrogen [Mass/Vol] 32 mg/dL High 4-19 [facility] Comment on above: Performed By: #### L 300.4310, L501.4021, L300.3900, L100.0100, L500.2500 ####[facility] [address] [place], [address] Basophil percentageOrdered B y: Kavin Evy on 11-20-2024 Basophils/100 WBC (Bld) 0.9 % 0-1 [facility] CBC W/Diff, Automatedon 10-26 Absolute Lymph 1.78 X10 3/uL Normal 0.83-4.51 [facility] Comment on above: Performed By: #### L 300.4310, L501.4021, L300.3900, L100.0100, L500.2500 ####[facility] [address] [place], [address] Absolute Neut 3.5 X10 3/uL Normal 2.0-7.7 [facility] Comment on above: Performed By: #### L 300.4310, L501.4021, L300.3900, L100.0100, L500.2500 ####[facility] [address] [place], [address] Basophils/100 WBC (Bld) 0.9 % Normal 0-1 [facility] Comment on above: Performed By: #### L 300.4310, L501.4021, L300.3900, L100.0100, L500.2500 ####[facility] [address] [place], [address] Eosinophils/100 WBC (Bld) 1.9 % Normal 0-5 [facility] Comment on above: Performed By: #### L 300.4310, L501.4021, L300.3900, L100.0100, L500.2500 ####[facility] [address] [place], [address] Erythrocyte distribution width (RBC) [Ratio] 14.4 % Normal 11.6-14.6 [facility] Comment on above: Performed By: #### L 300.4310, L501.4021, L300.3900, L100.0100, L500.2500 ####[facility] [address] [place], [address] Hematocrit (Bld) [Volume fraction] 37.7 % Normal 37-47 [facility] Comment on above: Performed By: #### L 300.4310, L501.4021, L300.3900, L100.0100, L500.2500 ####[facility] [address] [place], [address] Hemoglobin (Bld) [Mass/Vol] 12.4 g/dL Normal 12.0-15.0 [facility] Comment on above: Performed By: #### L 300.4310, L501.4021, L300.3900, L100.0100, L500.2500 ####[facility] [address] [place], [address] IG% 0.300 Normal 0.0-0.9 [facility] Comment on above: Result Comment: IG% - Immature Granulocytes (promyelocytes, myelocytes andmetamyelocytes) > 1% indicates that a LEFT SHIFT is Present. Performed By: #### L 300.4310, L501.4021, L300.3900, L100.0100, L500.2500 ####[facility] [address] [place], [address] Lymphocytes/100 WBC (Bld) 30.9 % Normal 19-41 [facility] Comment on above: Performed By: #### L 300.4310, L501.4021, L300.3900, L100.0100, L500.2500 ####[facility] [address] [place], [address] MCH (RBC) [Entitic mass] 29.8 pg Normal 27.0-32.0 [facility] Comment on above: Performed By: #### L 300.4310, L501.4021, L300.3900, L100.0100, L500.2500 ####[facility] [address] [place], [address] MCHC (RBC) [Mass/Vol] 32.9 g/dL Normal 32-36 [facility] Comment on above: Performed By: #### L 300.4310, L501.4021, L300.3900, L100.0100, L500.2500 ####[facility] [address] [place], [address] MCV (RBC) [Entitic vol] 90.6 fL Normal 81-99 [facility] Comment on above: Performed By: #### L 300.4310, L501.4021, L300.3900, L100.0100, L500.2500 ####[facility] [address] [place], [address] Monocytes/100 WBC (Bld) 5.7 % Normal 0-10 [facility] Comment on above: Performed By: #### L 300.4310, L501.4021, L300.3900, L100.0100, L500.2500 ####[facility] [address] [place], [address] Neutrophils/100 WBC (Bld) 60.3 % Normal 47-70 [facility] Comment on above: Performed By: #### L 300.4310, L501.4021, L300.3900, L100.0100, L500.2500 ####[facility] [address] [place], [address] Nucleated RBC (Bld) [#/Vol] 0 10*3/uL Normal 0-5 [facility] Comment on above: Performed By: #### L 300.4310, L501.4021, L300.3900, L100.0100, L500.2500 ####[facility] [address] [place], [address] Platelet mean volume (Bld) [Entitic vol] 9.1 fL Normal 6.2-12.0 [facility] Comment on above: Performed By: #### L 300.4310, L501.4021, L300.3900, L100.0100, L500.2500 ####[facility] [address] [place], [address] Platelets (Bld) [#/Vol] 265 10*3/uL Normal 150-450 [facility] Comment on above: Performed By: #### L 300.4310, L501.4021, L300.3900, L100.0100, L500.2500 ####[facility] [address] [place], [address] RBC (Bld) [#/Vol] 4.16 10*6/uL Low 4.2-5.4 [facility] Comment on above: Performed By: #### L 300.4310, L501.4021, L300.3900, L100.0100, L500.2500 ####[facility] [address] [place], [address] RDW SD 47.6 fl High 35.1-43.9 [facility] Comment on above: Performed By: #### L 300.4310, L501.4021, L300.3900, L100.0100, L500.2500 ####[facility] [address] [place], [address] WBC (Bld) [#/Vol] 5.8 10*3/uL Normal 4.4-11.0 [facility] Comment on above: Performed By: #### L 300.4310, L501.4021, L300.3900, L100.0100, L500.2500 ####[facility] [address] [place], [address] CNPNon 11-20-2024 CNPN Normal [facility] CTA Chest W/WO Contraston CTA Chest W/WO Contrast Normal [facility] Carbon dioxide, total [Moles /volume] in Central venous bloodOrdered By: Kavin Adams on 11-20-2024 CO2 [Moles/Vol] 19.7 mmol/L Low 21.0-32.0 [facility] Chest 1 View (Portable)on Chest 1 View (Portable) Normal [facility] Chloride assayOrdered By: Justin Adams on 11-20-2024 Chloride [Moles/Vol] 100 mmol/L 98-108 [facility] Consultation - Cardiologyon 11-20-2024 Consultation - Cardiology Normal [facility] Emergency Department Summary on 11-20-2024 Emergency Department Summary Normal [facility] Eosinophil percentageOrdered By: Kaivn Adams on 11-20-2024 Eosinophils/100 WBC (Bld) 1.9 % 0-5 [facility] Erythrocyte distribution wid th ratioOrdered By: Kavin Adams on 11-20-2024 Erythrocyte distribution width (RBC) [Ratio] 14.4 % 11.6-14.6 [facility] Erythrocyte distribution wid th standard deviationOrdered By: Kavin Adams on 11-20-2024 Erythrocyte distribution width (RBC) [Ratio] 47.6 fl High 35.1-43.9 [facility] Glomerular filtration rate ( GFR) estimation/1.73 sq m using serum, plasma, or whole bOrdered By: Kavin Adams on 11-20-2024 GFR/1.73 sq M.predicted among non-blacks MDRD (S/P/Bld) [Vol rate/Area] 58 mL/min/{1.73_m2} Low >60 [facility] Comment on above: mL/min/1.73m2 CKD-EP I Creatinine Equation (2020) Hematocrit Auto (Bld) [Volum e fraction]Ordered By: Kavin Adams on 11-20-2024 Hematocrit (Bld) [Volume fraction] 37.7 % 37-47 [facility] Hemoglobin measurementOrdere d By: Kavin Adams on 11-20-2024 Hemoglobin (Bld) [Mass/Vol] 12.4 g/dL 12.0-15.0 [facility] Immature granulocytes/100 WB C Auto (Bld)Ordered By: Kavin Adams on 11-20-2024 Immature granulocytes/100 WBC (Bld) 0.300 % 0.0-0.9 [facility] Comment on above: IG% - Immature Granu locytes (promyelocytes, myelocytes and metamyelocytes) > 1% indicates that a LEFT SHIFT is Present. International normalized rat io (INR) calculationOrdered By: Kavin Adams on 11-20-2024 INR Coag (Bld) [Relative time] 0.9 {INR} [facility] L501.4021on 11-20-2024 Trop T High Sen 91 ng/L Invalid Interpretation Code <=14 [facility] Comment on above: Result Comment: Crit ical Result(s) Called at: by:??Results read back bysame.Critical Result(s) Called at: by:??Results read back bysame.Critical Result(s) Called [place] at: 2302 by:NIKKI??Results read back by same. Performed By: #### L 300.4310, L501.4021, L300.3900, L100.0100, L500.2500 ####[facility] [address] [place], [place], [id number] MCV (mean corpuscular volume ) determinationOrdered By: Kavin Adams on 11-20-2024 MCV (RBC) [Entitic vol] 90.6 fL 81-99 [facility] Mean corpuscular hemoglobin (MCH) determinationOrdered By: Kavin Adams on 11-20-2024 MCH (RBC) [Entitic mass] 29.8 pg 27.0-32.0 [facility] Mean corpuscular hemoglobin concentration (MCHC) determinationOrdered By: Kavin Adams on 11-20-2024 MCHC (RBC) [Mass/Vol] 32.9 g/dL 32-36 [facility] Mean platelet volume determi nationOrdered By: Kavin Adams on 11-20-2024 Platelet mean volume (Bld) [Entitic vol] 9.1 fL 6.2-12.0 [facility] Monocyte percentageOrdered B y: Kavin Adams on 11-20-2024 Monocytes/100 WBC (Bld) 5.7 % 0-10 [facility] Neutrophil percentageOrdered By: Kavin Adams on 11-20-2024 Neutrophils/100 WBC (Bld) 60.3 % 47-70 [facility] Nucleated red blood cell per centageOrdered By: Kavin Adams on 11-20-2024 Nucleated RBC/100 WBC (Bld) [Ratio] 0 % 0-5 [facility] Partial Thromboplast Timeon 11-20-2024 aPTT Coag (Bld) [Time] 22.2 s Low 24.1-36.2 [facility] Comment on above: Performed By: #### L 300.4310, L501.4021, L300.3900, L100.0100, L500.2500 ####[facility] [address] [place], [address] Platelet countOrdered By: Justin Adams on 11-20-2024 Platelets (Bld) [#/Vol] 265 10*3/uL 150-450 [facility] Potassium measurement (mass/ volume)Ordered By: Kavin Adams on 11-20-2024 Potassium (Unsp spec) [Mass/Vol] 3.0 mmol/L Low 3.3-5.1 [facility] Comment on above: Hemolysis present, R esults could be affected. Prothrombin Time w/INRon INR Coag (PPP) [Relative time] 0.9 {INR} Normal [facility] Comment on above: Performed By: #### L 300.4310, L501.4021, L300.3900, L100.0100, L500.2500 ####[facility] [address] [place], [address] PT Coag (PPP) [Time] 12.4 s Normal 11.7-14.9 [facility] Comment on above: Performed By: #### L 300.4310, L501.4021, L300.3900, L100.0100, L500.2500 ####[facility] [address] [place], [address] Prothrombin timeOrdered By: Kavin Adams on 11-20-2024 PT Coag (PPP) [Time] 12.4 s 11.7-14.9 [facility] RBC Auto (Bld) [#/Vol]Ordere d By: Kavin Adams on 11-20-2024 RBC (Bld) [#/Vol] 4.16 10*6/uL Low 4.2-5.4 [facility] Serum creatinine measurement (mass/volume)Ordered By: Kavin Adams on 11-20-2024 Creatinine [Mass/Vol] 1.06 mg/dL 0.70-1.20 [facility] Serum glucose measurement (m ass/volume)Ordered By: Kavin Adams on 11-20-2024 Glucose [Mass/Vol] 162 mg/dL High 70-99 [facility] Serum or plasma calcium renetta urement (mass/volume)Ordered By: Kavin Adams on 11-20-2024 Calcium [Mass/Vol] 9.5 mg/dL 7.6-11.0 [facility] Serum or plasma urea nitroge n measurement (mass/volume)Ordered By: Kavin Adams on 11-20-2024 Urea nitrogen [Mass/Vol] 32 mg/dL High 4-19 [facility] Sodium levelOrdered By: Kavin Adams on 11-20-2024 Sodium [Moles/Vol] 140 mmol/L 133-145 [facility] Troponin T.cardiac [Mass/vol ume] in Serum or Plasma by High sensitivity methodOrdered By: Kavin Adams on 11-20-2024 Troponin T.cardiac High sensitivity method [Mass/Vol] 91 ng/L Critically high <14 [facility] Comment on above: Critical Result(s) C olive at: by: Results read back by same.Critical Result(s) Called at: by: Results read back by same.Critical Result(s) Called [place] [place] at: 2302 by: NIKKI Results read back by same. White blood cell (WBC) count Ordered By: Kavin Adams on 11-20-2024 WBC (Bld) [#/Vol] 5.8 10*3/uL 4.4-11.0 [facility] CBC W Auto Differential pane l (Bld)on 11-18-2024 Basophils (Bld) [#/Vol] 0.08 10*3/uL [facility] Basophils/100 WBC (Bld) 1.1 % [facility] Differential cell count method Nom (Bld) Auto [facility] Eosinophils (Bld) [#/Vol] 0.31 10*3/uL [facility] Eosinophils/100 WBC (Bld) 4.2 % [facility] Erythrocyte distribution width (RBC) [Ratio] 13.8 % 11.5 - 15.0 % [facility] Hematocrit (Bld) [Volume fraction] 32.2 % Low 36.0 - 46.0 % [facility] Hemoglobin (Bld) [Mass/Vol] 11.1 g/dL Low 11.5 - 15.5 g/dL [facility] Immature granulocytes (Bld) [#/Vol] NINF [facility] Immature granulocytes/100 WBC (Bld) 0.3 % [facility] Interpretation and review of laboratory results Abnormal [facility] Lymphocytes (Bld) [#/Vol] 1.96 10*3/uL [facility] Lymphocytes/100 WBC (Bld) 26.5 % [facility] MCH (RBC) [Entitic mass] 29.8 pg 26.0 - 34.0 pg [facility] MCHC (RBC) [Mass/Vol] 34.5 g/dL 30.5 - 36.0 g/dL [facility] MCV (RBC) [Entitic vol] 86.3 fL 80.0 - 100.0 fL [facility] Monocytes (Bld) [#/Vol] 0.50 10*3/uL NINF [facility] Monocytes/100 WBC (Bld) 6.8 % [facility] Neutrophils (Bld) [#/Vol] 4.53 10*3/uL [facility] Neutrophils/100 WBC (Bld) 61.1 % [facility] Nucleated RBC (Bld) [#/Vol] NINF [facility] Nucleated RBC/100 WBC (Bld) [Ratio] 0.0 % /100 WBC [facility] Platelet mean volume (Bld) [Entitic vol] 8.5 fL Low 9.0 - 12.7 fL [facility] Platelets (Bld) [#/Vol] 275 10*3/uL [facility] RBC (Bld) [#/Vol] 3.73 10*6/uL Low 3.90 - 5.20 m/uL [facility] WBC (Bld) [#/Vol] 7.40 10*3/uL [facility] Basophils (Bld) [#/Vol] 0.08 10*3/uL Normal <0.11 [facility] Comment on above: Order Comment: Speci men Type: BLOOD SPECIMENOrdering Facility: [facility] Address: [address] [place] [address] Performed By: #### 5 7021-8 ####[facility]ITALA [id number] [place] [address] [place] Basophils/100 WBC (Bld) 1.1 % Normal [facility] Comment on above: Order Comment: Speci men Type: BLOOD SPECIMENOrdering Facility: [facility] Address: [address] [place] [address] Performed By: #### 5 7021-8 ####[facility]ITALLIA [id number] [place] [address] [place] Differential cell count method Nom (Bld) Auto Normal [facility] Comment on above: Order Comment: Speci men Type: BLOOD SPECIMENOrdering Facility: [facility] Address: [address] [place] [address] Performed By: #### 5 7021-8 ####[facility]ITALA [id number] [place] [address] [place] Eosinophils (Bld) [#/Vol] 0.31 10*3/uL Normal <0.46 [facility] Comment on above: Order Comment: Speci men Type: BLOOD SPECIMENOrdering Facility: [facility] Address: [address] [place] [address] Performed By: #### 5 7021-8 ####[facility] HOSPITALNCCALDERONA [id number] [place] [address] [place] Eosinophils/100 WBC (Bld) 4.2 % Normal [facility] Comment on above: Order Comment: Speci men Type: BLOOD SPECIMENOrdering Facility: [facility] Address: [address] [place] [address] Performed By: #### 5 7021-8 ####[facility] HOSPITALNCMOUNTAINSTAR HEALTHCARE [id number] [place] [address] [place] Erythrocyte distribution width (RBC) [Ratio] 13.8 % Normal 11.5-15.0 [facility] Comment on above: Order Comment: Speci men Type: BLOOD SPECIMENOrdering Facility: [facility] Address: [address] [place] [address] Performed By: #### 5 7021-8 ####[facility] HOSPITALNCLIA [id number] [place] [address] [place] Hematocrit (Bld) [Volume fraction] 32.2 % Low 36.0-46.0 [facility] Comment on above: Order Comment: Speci men Type: BLOOD SPECIMENOrdering Facility: [facility] Address: [address] [place] [address] Performed By: #### 5 7021-8 ####[facility] HOSPITALNCLI [id number] [place] [address] [place] Hemoglobin (Bld) [Mass/Vol] 11.1 g/dL Low 11.5-15.5 [facility] Comment on above: Order Comment: Speci men Type: BLOOD SPECIMENOrdering Facility: [facility] Address: [address] [place] [address] Performed By: #### 5 7021-8 ####[facility] [place] [id number] [place] [address] [place] Immature granulocytes (Bld) [#/Vol] 10*3/uL Normal <0.10 [facility] Comment on above: Order Comment: Speci men Type: BLOOD SPECIMENOrdering Facility: [facility] Address: [address] [place] [address] Performed By: #### 5 7021-8 ####[facility] HOSPITALGUMEA [id number] [place] [address] [place] Immature granulocytes/100 WBC (Bld) 0.3 % Normal [facility] Comment on above: Order Comment: Speci men Type: BLOOD SPECIMENOrdering Facility: [facility] Address: [address] [place] [address] Performed By: #### 5 7021-8 ####[facility] HOSPITALNCA [id number] [place] [address] [place] Lymphocytes (Bld) [#/Vol] 1.96 10*3/uL Normal 1.00-4.00 [facility] Comment on above: Order Comment: Speci men Type: BLOOD SPECIMENOrdering Facility: [facility] Address: [address] [place] [address] Performed By: #### 5 7021-8 ####[facility] HOSPITALNCLIA [id number] [place] [address] [place] Lymphocytes/100 WBC (Bld) 26.5 % Normal [facility] Comment on above: Order Comment: Speci men Type: BLOOD SPECIMENOrdering Facility: [facility] Address: [address] [place] [address] Performed By: #### 5 7021-8 ####[facility] HOSPITALNCLIA [id number] [place] [address] [place] MCH (RBC) [Entitic mass] 29.8 pg Normal 26.0-34.0 [facility] Comment on above: Order Comment: Speci men Type: BLOOD SPECIMENOrdering Facility: [facility] Address: [address] [place] [address] Performed By: #### 5 7021-8 ####[facility] [id number] [place] [address] [place] MCHC (RBC) [Mass/Vol] 34.5 g/dL Normal 30.5-36.0 [facility] Comment on above: Order Comment: Speci men Type: BLOOD SPECIMENOrdering Facility: [facility] Address: [address] [place] [address] Performed By: #### 5 7021-8 ####[facility] [id number] [place] [address] [place] MCV (RBC) [Entitic vol] 86.3 fL Normal 80.0-100.0 [facility] Comment on above: Order Comment: Speci men Type: BLOOD SPECIMENOrdering Facility: [facility] Address: [address] [place] [address] Performed By: #### 5 7021-8 ####[facility] [id number] [place] [address] [place] Monocytes (Bld) [#/Vol] 0.50 10*3/uL Normal <0.87 [facility] Comment on above: Order Comment: Speci men Type: BLOOD SPECIMENOrdering Facility: [facility] Address: [address] [place] [address] Performed By: #### 5 7021-8 ####[facility] [id number] [place] [address] [place] Monocytes/100 WBC (Bld) 6.8 % Normal [facility] Comment on above: Order Comment: Speci men Type: BLOOD SPECIMENOrdering Facility: [facility] Address: [address] [place] [address] Performed By: #### 5 7021-8 ####[facility]PITALLIA [id number] [place] [address] [place] Neutrophils (Bld) [#/Vol] 4.53 10*3/uL Normal 1.45-7.50 [facility] Comment on above: Order Comment: Speci men Type: BLOOD SPECIMENOrdering Facility: [facility] Address: [address] [place] [address] Performed By: #### 5 7021-8 ####[facility]ITALA [id number] [place] [address] [place] Neutrophils/100 WBC (Bld) 61.1 % Normal [facility] Comment on above: Order Comment: Speci men Type: BLOOD SPECIMENOrdering Facility: [facility] Address: [address] [place] [address] Performed By: #### 5 7021-8 ####[facility]PITALLIA [id number] [place] [address] [place] Nucleated RBC (Bld) [#/Vol] 10*3/uL Normal <0.01 [facility] Comment on above: Order Comment: Speci men Type: BLOOD SPECIMENOrdering Facility: [facility] Address: [address] [place] [address] Performed By: #### 5 7021-8 ####[facility]ITALA [id number] [place] [address] [place] Nucleated RBC/100 WBC (Bld) [Ratio] 0.0 /100 WBC Normal [facility] Comment on above: Order Comment: Speci men Type: BLOOD SPECIMENOrdering Facility: [facility] Address: [address] [place] [address] Performed By: #### 5 7021-8 ####[facility] [id number] [place] [address] [place] Platelet mean volume (Bld) [Entitic vol] 8.5 fL Low 9.0-12.7 [facility] Comment on above: Order Comment: Speci men Type: BLOOD SPECIMENOrdering Facility: [facility] Address: [address] [place] [address] Performed By: #### 5 7021-8 ####[facility] BISHNUWINSTON SALEMNCKELSIE [id number] [place] [address] [place] Platelets (Bld) [#/Vol] 275 10*3/uL Normal 150-400 [facility] Comment on above: Order Comment: Speci men Type: BLOOD SPECIMENOrdering Facility: [facility] Address: [address] [place] [address] Performed By: #### 5 7021-8 ####[facility] HOSPITALNCCALDERONA [id number] [place] [address] [place] RBC (Bld) [#/Vol] 3.73 10*6/uL Low 3.90-5.20 [facility] Comment on above: Order Comment: Speci men Type: BLOOD SPECIMENOrdering Facility: [facility] Address: [address] [place] [address] Performed By: #### 5 7021-8 ####[facility] HOSPITALNCLIA [id number] [place] [address] [place] WBC (Bld) [#/Vol] 7.40 10*3/uL Normal 3.70-11.00 [facility] Comment on above: Order Comment: Speci men Type: BLOOD SPECIMENOrdering Facility: [facility] Address: [address] [place], [place] [address] Performed By: #### 5 7021-8 ####[facility]RISTIAN MILLWNCLIA [id number] [place] [id number] [place] CEA SerPl-mCncon 11-18-2024 Carcinoembryonic Ag [Mass/Vol] 15.1 ng/mL High <=2.9 [facility] Comment on above: Order Comment: Speci men Type: BLOOD SPECIMENOrdering Facility: [facility] Address: [address] [place] [address] Result Comment: Carc inoembryonic antigen test is used as an aid in monitoring response to treatment or recurrence in patients with established colorectal, breast, lung, prostatic, pancreatic, and ovarian carcinomas. Clinical correlation is required.The Carcinoembryonic antigen test was performed using the [employer] DXI paramagnetic particle chemiluminescent immunoassay method. Results obtained with different assay methods or kits cannot be used interchangeably. Performed By: #### 2 039-6 ####[facility] LABCLIA [id number] [place] [address] [place] CNOVSPon 11-18-2024 CNOVSP Normal [facility] CNPNon 11-18-2024 CNPN Normal [facility] Comprehensive metabolic 2000 panelOrdered By: Merlyn Veloz on 11-18-2024 Albumin [Mass/Vol] 4.2 g/dL 3.9 - 4.9 g/dL [facility] ALP [Catalytic activity/Vol] 81 U/L 34 - 123 U/L [facility] ALT [Catalytic activity/Vol] 8 U/L 7 - 38 U/L [facility] Anion gap [Moles/Vol] 14 mmol/L 8 - 15 mmol/L [facility] AST [Catalytic activity/Vol] 17 U/L 13 - 35 U/L [facility] Bilirubin [Mass/Vol] 0.3 mg/dL 0.2 - 1 .3 mg/dL [facility] Calcium [Mass/Vol] 9.2 mg/dL 8.5 - 10. 2 mg/dL [facility] Chloride [Moles/Vol] 106 mmol/L 98 - 10 7 mmol/L [facility] CO2 [Moles/Vol] 20 mmol/L Low 22 - 30 mmol/L [facility] Creatinine [Mass/Vol] 0.69 mg/dL 0.58 - 0.96 mg/dL [facility] GFR/1.73 sq M.predicted among non-blacks MDRD (S/P/Bld) [Vol rate/Area] 96 mL/min/{1.73_m2} - PINF [facility] Comment on above: Estimated Glomerular Filtration Rate [...] 141 mg/dL High 74 - 99 mg/dL [facility] Comment on above: The [place] [employer] (ADA) provides guidance for [...] Standards of Medical Care in Diabetes 2016, [place] [employer]. Diabetes Care. 2016.39(Suppl 1). Interpretation and review of laboratory results Abnormal [facility] Potassium [Moles/Vol] 2.6 mmol/L Low 3.7 - 5.1 mmol/L [facility] Protein [Mass/Vol] 6.9 g/dL 6.3 - 8.0 g/dL [facility] Sodium [Moles/Vol] 140 mmol/L 136 - 144 mmol/L [facility] Urea nitrogen [Mass/Vol] 20 mg/dL 7 - 21 mg/dL [facility] Comprehensive metabolic 2000 panelon 11-18-2024 Albumin [Mass/Vol] 4.2 g/dL Normal 3.9-4.9 [facility] Comment on above: Order Comment: Speci men Type: BLOOD SPECIMENOrdering Facility: [facility] Address: [address] [place] [address] Performed By: #### 2 4323-8, ####[facility] CHRISTIAN LARAKALIECALDERONA [id number] [place] [address] [place] ALP [Catalytic activity/Vol] 81 U/L Normal 34-123 [facility] Comment on above: Order Comment: Speci men Type: BLOOD SPECIMENOrdering Facility: [facility] Address: [address] [place] [address] Performed By: #### 2 4323-8, ####[facility] LALYCOLELIA [id number] [place] [address] [place] ALT [Catalytic activity/Vol] 8 U/L Normal 7-38 [facility] Comment on above: Order Comment: Speci men Type: BLOOD SPECIMENOrdering Facility: [facility] Address: [address] [place] [address] Performed By: #### 2 4323-8, ####[facility]STIAN BISHNUWINSTON SALEMGUMEA [id number] [place] [address] [place] Anion gap [Moles/Vol] 14 mmol/L Normal 8-15 [facility] Comment on above: Order Comment: Speci men Type: BLOOD SPECIMENOrdering Facility: [facility] Address: [address] [place] [address] Performed By: #### 2 4323-8, ####[facility] BISHNUWINSTON SALEMNCLIA [id number] [place] [address] [place] AST [Catalytic activity/Vol] 17 U/L Normal 13-35 [facility] Comment on above: Order Comment: Speci men Type: BLOOD SPECIMENOrdering Facility: [facility] Address: [address] [place] [address] Performed By: #### 2 4323-8, ####[facility] CHRISTIAN MILLTOWNCLIA [id number] [place] [address] [place] Bilirubin [Mass/Vol] 0.3 mg/dL Normal 0.2-1.3 [facility] Comment on above: Order Comment: Speci men Type: BLOOD SPECIMENOrdering Facility: [facility] Address: [address] [place] [address] Performed By: #### 2 432-8, ####[facility] MILLTOWNCLIA [id number] [place] [address] [place] Calcium [Mass/Vol] 9.2 mg/dL Normal 8.5-10.2 [facility] Comment on above: Order Comment: Speci men Type: BLOOD SPECIMENOrdering Facility: [facility] Address: [address] [place] [address] Performed By: #### 2 432-8, ####[facility] MILLTOWNCLIA [id number] [place] [address] [place] Chloride [Moles/Vol] 106 mmol/L Normal 98-107 [facility] Comment on above: Order Comment: Speci men Type: BLOOD SPECIMENOrdering Facility: [facility] Address: [address] [place] [address] Performed By: #### 2 4328, ####[facility] CHRISTIAN MILLTOWNCLIA [id number] [place] [address] [place] CO2 [Moles/Vol] 20 mmol/L Low 22-30 [facility] Comment on above: Order Comment: Speci men Type: BLOOD SPECIMENOrdering Facility: [facility] Address: [address] [place] [address] Performed By: #### 2 4323-8, ####[facility] CHRISTIAN MILLTOWNCLIA [id number] [place] [address] [place] Creatinine [Mass/Vol] 0.69 mg/dL Normal 0.58-0.96 [facility] Comment on above: Order Comment: Umesh baugh Type: BLOOD SPECIMENOrdering Facility: [facility] Address: [address] [place] [address] Performed By: #### 2 4323-8, ####[facility] [id number] [place] [address] [place] eGFRcr SerPlBld CKD-EPI 2020 96 mL/min/1.73m??? Normal >=60 [facility] Comment on above: Order Comment: Umesh baugh Type: BLOOD SPECIMENOrdering Facility: [facility] Address: [address] [place] [address] Result Comment: Sana mated Glomerular Filtration Rate [...] actual GFR. Performed By: #### 2 4323-8, ####[facility]IT[facility] [id number] [place] [address] [place] Glucose [Mass/Vol] 141 mg/dL High 74-99 [facility] Comment on above: Order Comment: Umesh baugh Type: BLOOD SPECIMENOrdering Facility: [facility] Address: [address] [place] [address] Result Comment: The [place] Diabetes Association (ADA) provides guidance for cutoff [...] Standards of Medical Care in Diabetes 2016, [place] [employer]. Diabetes Care. 2016.39(Suppl 1). Performed By: #### 2 4323-8, ####[facility] MILLTOWNCLIA [id number] [place] [address] [place] Potassium [Moles/Vol] 2.6 mmol/L Low 3.7-5.1 [facility] Comment on above: Order Comment: Speci men Type: BLOOD SPECIMENOrdering Facility: [facility] Address: [address] [place] [address] Performed By: #### 2 4323-8, ####[facility] HOSPITALKALIELIA [id number] [place] [address] [place] Protein [Mass/Vol] 6.9 g/dL Normal 6.3-8.0 [facility] Comment on above: Order Comment: Speci men Type: BLOOD SPECIMENOrdering Facility: [facility] Address: [address] [place] [address] Performed By: #### 2 4323-8, ####[facility] HOSPITALKALIELIA [id number] [place] [address] [place] Sodium [Moles/Vol] 140 mmol/L Normal 136-144 [facility] Comment on above: Order Comment: Speci men Type: BLOOD SPECIMENOrdering Facility: [facility] Address: [address] [place], [place] [address] Performed By: #### 2 4323-, ####[facility] ERWNCLIA [id number] [place] [address] [place] Urea nitrogen [Mass/Vol] 20 mg/dL Normal 7-21 [facility] Comment on above: Order Comment: Umesh baugh Type: BLOOD SPECIMENOrdering Facility: [facility] Address: [address] [place], [place] [address] Performed By: #### 2 4323-8, 92869-7 ####[facility] CHRISTIAN LALYWNCLIA [id number] [place] [address] [place] MAGNESIUMon 11-18-2024 Magnesium [Mass/Vol] 1.8 mg/dL 1.7 - 2 .3 mg/dL [facility] Magnesium SerPl-mCncon 11-18 Magnesium [Mass/Vol] 1.8 mg/dL Normal 1.7-2.3 [facility] Comment on above: Order Comment: Umesh baugh Type: BLOOD SPECIMENOrdering Facility: [facility] Address: [address] [place] [address] Performed By: #### 2 4323-8, 27575-4 ####[facility] ERWNCLIA [id number] [place] [address] [place] Magnesium [Mass/Vol]on 11-18 Interpretation and review of laboratory results Normal [facility] No Panel InformationOrdered By: Merlyn Veloz on 11-18-2024 [facility] PT panel Coag (PPP)on 2024 INR Coag (PPP) [Relative time] 1.0 {INR} 0.9 - 1.3 [facility] Comment on above: Vitamin K Antagonist (VKA) Therapeutic Range: INR 2 to 3 (Target INR of 2.5) Note: For patients treated with VKA drugs, such as warfarin, the [place] [employer] 2012 Guideline recommends [...] to 3.5 (target INR of 3). Summer HARRIS et omayra. Chest 2012, 141:7S-47S Jermain BRIGGS et omayra. [facility] 2017, 70: 252-289 Interpretation and review of laboratory results Normal [facility] PT Coag (PPP) [Time] 10.4 s NINF [facility] INR Coag (PPP) [Relative time] 1.0 {INR} Normal 0.9-1.3 [facility] Comment on above: Order Comment: Speci men Type: BLOOD SPECIMENOrdering Facility: [facility] Address: [address] [place] [address] Result Comment: Edwige min K Antagonist (VKA) Therapeutic Range: INR 2 to 3 (Target INR of 2.5)Note: For patients treated with VKA drugs, such as warfarin, the [place] [employer] 2012 Guideline recommends [...] 2.5 to 3.5 (target INR of 3).Summer HARRIS et omayra. Chest 2012, 141:7S-47SJermain BRIGGS et al. [facility] 2017, 70: 252-289 Performed By: #### 3 4528-0 ####[facility] HOSPITALLI [id number] [place] [address] [place] PT Coag (PPP) [Time] 10.4 s Normal <13.1 [facility] Comment on above: Order Comment: Umesh baugh Type: BLOOD SPECIMENOrdering Facility: [facility] Address: [address] [place] [address] Performed By: #### 3 4528-0 ####[facility]ITALNCMOUNT[facility]STAR [facility] [id number] [place] [address] [place] CNPNon 11-13-2024 CNPN Normal [facility] CNPNon 11-11-2024 CNPN Normal [facility] Basic Metabolic Profile (BMP )on 11-09-2024 BUN Normal 4-19 [facility] Comment on above: Result Comment: Canc elled via OM: Order cancelled - Patient discharged Performed By: #### L 100.0500, L500.2500 ####[facility] [address] [place], [address] BUN/CRE Normal 10-20 [facility] Comment on above: Result Comment: Canc elled via OM: Order cancelled - Patient discharged Performed By: #### L 100.0500, L500.2500 ####[facility] [address] [place], [address] Calcium Normal 7.6-11.0 [facility] Comment on above: Result Comment: Canc elled via OM: Order cancelled - Patient discharged Performed By: #### L 100.0500, L500.2500 ####[facility] [address] [place], [address] CL Normal 98-108 [facility] Comment on above: Result Comment: Canc elled via OM: Order cancelled - Patient discharged Performed By: #### L 100.0500, L500.2500 ####[facility] [address] [place], [address] CO2 Normal 21.0-32.0 [facility] Comment on above: Result Comment: Canc elled via OM: Order cancelled - Patient discharged Performed By: #### L 100.0500, L500.2500 ####[facility] [address] [place], [address] CREAT,SERUM Normal 0.70-1.20 [facility] Comment on above: Result Comment: Canc elled via OM: Order cancelled - Patient discharged Performed By: #### L 100.0500, L500.2500 ####[facility] [address] [place], [address] eGFR Normal >60 [facility] Comment on above: Result Comment: Canc elled via OM: Order cancelled - Patient discharged Performed By: #### L 100.0500, L500.2500 ####[facility] [address] [place], [address] GAP Normal 5-15 [facility] Comment on above: Result Comment: Canc elled via OM: Order cancelled - Patient discharged Performed By: #### L 100.0500, L500.2500 ####[facility] [address] [place], [address] GLU Normal 70-99 [facility] Comment on above: Result Comment: Canc elled via OM: Order cancelled - Patient discharged Performed By: #### L 100.0500, L500.2500 ####[facility] [address] [place], [address] Potassium Normal 3.3-5.1 [facility] Comment on above: Result Comment: Canc elled via OM: Order cancelled - Patient discharged Performed By: #### L 100.0500, L500.2500 ####[facility] [address] [place], [address] Basic Metabolic Profile (BMP) Normal 133-145 [facility] Comment on above: Result Comment: Canc elled via OM: Order cancelled - Patient discharged Performed By: #### L 100.0500, L500.2500 ####[facility] [address] [place], [address] CBC-Complete Blood Cnt No Di ffon 11-09-2024 HCT Normal 37-47 [facility] Comment on above: Result Comment: Canc elled via OM: Order cancelled - Patient discharged Performed By: #### L 100.0500, L500.2500 ####[facility] [address] [place], [address] HGB Normal 12.0-15.0 [facility] Comment on above: Result Comment: Canc elled via OM: Order cancelled - Patient discharged Performed By: #### L 100.0500, L500.2500 ####[facility] [address] [place], [address] MCH Normal 27.0-32.0 [facility] Comment on above: Result Comment: Canc elled via OM: Order cancelled - Patient discharged Performed By: #### L 100.0500, L500.2500 ####[facility] [address] [place], [address] MCHC Normal 32-36 [facility] Comment on above: Result Comment: Canc elled via OM: Order cancelled - Patient discharged Performed By: #### L 100.0500, L500.2500 ####[facility] [address] [place], [address] MCV Normal 81-99 [facility] Comment on above: Result Comment: Canc elled via OM: Order cancelled - Patient discharged Performed By: #### L 100.0500, L500.2500 ####[facility] [address] [place], [address] PLT Normal 150-450 [facility] Comment on above: Result Comment: Canc elled via OM: Order cancelled - Patient discharged Performed By: #### L 100.0500, L500.2500 ####[facility] [address] [place], [address] RBC Normal 4.2-5.4 [facility] Comment on above: Result Comment: Canc elled via OM: Order cancelled - Patient discharged Performed By: #### L 100.0500, L500.2500 ####[facility] [address] [place], [address] RDW CV Normal 11.6-14.6 [facility] Comment on above: Result Comment: Canc elled via OM: Order cancelled - Patient discharged Performed By: #### L 100.0500, L500.2500 ####[facility] [address] [place], [address] RDW SD Normal 35.1-43.9 [facility] Comment on above: Result Comment: Canc elled via OM: Order cancelled - Patient discharged Performed By: #### L 100.0500, L500.2500 ####[facility] [address] [place], [address] WBC Normal 4.4-11.0 [facility] Comment on above: Result Comment: Canc elled via OM: Order cancelled - Patient discharged Performed By: #### L 100.0500, L500.2500 ####[facility] [address] [place], [address] Absolute lymphocyte countOrd ered By: Annette Mendez on 11-08-2024 Lymphocytes Auto (Unsp spec) [#/Vol] 1.82 10*3/uL 0.83-4.51 [facility] Absolute neutrophil countOrd ered By: Annette Mendez on 11-08-2024 Neutrophils (Bld) [#/Vol] 9.5 10*3/uL High 2.0-7.7 [facility] Anion gap in Serum or Plasma Ordered By: Annette Mendez on 11-08-2024 Anion gap [Moles/Vol] 9 mmol/L 5-15 [facility] Automated lymphocyte count a s percentage of total leukocytesOrdered By: Annette Mendez on 11-08-2024 Lymphocytes/100 WBC Auto (Unsp spec) 15.0 % Low 19-41 [facility] BUN/creatinine ratioOrdered By: Annette Mendez on 11-08-2024 Urea nitrogen/Creatinine [Mass ratio] 27.7 mg/mg High 10-20 [facility] Basophil percentageOrdered B y: Annette Mendez on 11-08-2024 Basophils/100 WBC (Bld) 0.2 % 0-1 [facility] Bilirubin, totalOrdered By: Annette Mendez on 11-08-2024 Bilirubin [Mass/Vol] 0.31 mg/dL 0.00-1.30 [facility] CBC W/Diff, Automatedon 10-25 Absolute Lymph 1.82 X10 3/uL Normal 0.83-4.51 [facility] Comment on above: Performed By: #### L 500.4050, L300.3900, L100.0100 ####[facility] [address] [place], [address] Absolute Neut 9.5 X10 3/uL High 2.0-7.7 [facility] Comment on above: Performed By: #### L 500.4050, L300.3900, L100.0100 ####[facility] [address] [place], [address] Basophils/100 WBC (Bld) 0.2 % Normal 0-1 [facility] Comment on above: Performed By: #### L 500.4050, L300.3900, L100.0100 ####[facility] [address] [place], [address] Eosinophils/100 WBC (Bld) 0.0 % Normal 0-5 [facility] Comment on above: Performed By: #### L 500.4050, L300.3900, L100.0100 ####[facility] [address] [place], [address] Erythrocyte distribution width (RBC) [Ratio] 13.8 % Normal 11.6-14.6 [facility] Comment on above: Performed By: #### L 500.4050, L300.3900, L100.0100 ####[facility] [address] [place], [address] Hematocrit (Bld) [Volume fraction] 27.5 % Low 37-47 [facility] Comment on above: Performed By: #### L 500.4050, L300.3900, L100.0100 ####[facility] [address] [place], [address] Hemoglobin (Bld) [Mass/Vol] 9.1 g/dL Low 12.0-15.0 [facility] Comment on above: Performed By: #### L 500.4050, L300.3900, L100.0100 ####[facility] [address] [place], [address] IG% 0.700 Normal 0.0-0.9 [facility] Comment on above: Result Comment: IG% - Immature Granulocytes (promyelocytes, myelocytes andmetamyelocytes) > 1% indicates that a LEFT SHIFT is Present. Performed By: #### L 500.4050, L300.3900, L100.0100 ####[facility] [address] [place], [address] Lymphocytes/100 WBC (Bld) 15.0 % Low 19-41 [facility] Comment on above: Performed By: #### L 500.4050, L300.3900, L100.0100 ####[facility] [address] [place], [address] MCH (RBC) [Entitic mass] 29.8 pg Normal 27.0-32.0 [facility] Comment on above: Performed By: #### L 500.4050, L300.3900, L100.0100 ####[facility] [address] [place], [address] MCHC (RBC) [Mass/Vol] 33.1 g/dL Normal 32-36 [facility] Comment on above: Performed By: #### L 500.4050, L300.3900, L100.0100 ####[facility] [address] [place], [address] MCV (RBC) [Entitic vol] 90.2 fL Normal 81-99 [facility] Comment on above: Performed By: #### L 500.4050, L300.3900, L100.0100 ####[facility] [address] [place], [address] Monocytes/100 WBC (Bld) 6.4 % Normal 0-10 [facility] Comment on above: Performed By: #### L 500.4050, L300.3900, L100.0100 ####[facility] [address] [place], [address] Neutrophils/100 WBC (Bld) 77.7 % High 47-70 [facility] Comment on above: Performed By: #### L 500.4050, L300.3900, L100.0100 ####[facility] [address] [place], [address] Nucleated RBC (Bld) [#/Vol] 0 10*3/uL Normal 0-5 [facility] Comment on above: Performed By: #### L 500.4050, L300.3900, L100.0100 ####[facility] [address] [place], [address] Platelet mean volume (Bld) [Entitic vol] 9.2 fL Normal 6.2-12.0 [facility] Comment on above: Performed By: #### L 500.4050, L300.3900, L100.0100 ####[facility] [address] [place], [address] Platelets (Bld) [#/Vol] 228 10*3/uL Normal 150-450 [facility] Comment on above: Performed By: #### L 500.4050, L300.3900, L100.0100 ####[facility] [address] [place], [address] RBC (Bld) [#/Vol] 3.05 10*6/uL Low 4.2-5.4 [facility] Comment on above: Performed By: #### L 500.4050, L300.3900, L100.0100 ####[facility] [address] [place], [address] RDW SD 45.4 fl High 35.1-43.9 [facility] Comment on above: Performed By: #### L 500.4050, L300.3900, L100.0100 ####[facility] [address] [place], [address] WBC (Bld) [#/Vol] 12.2 10*3/uL High 4.4-11.0 [facility] Comment on above: Performed By: #### L 500.4050, L300.3900, L100.0100 ####[facility] [address] [place], [address] CNPNon 11-08-2024 CNPN Normal [facility] Carbon dioxide, total [Moles /volume] in Central venous bloodOrdered By: Annette Mendez on 11-08-2024 CO2 [Moles/Vol] 22.4 mmol/L 21.0-32.0 [facility] Chloride assayOrdered By: Ramses Mendez on 11-08-2024 Chloride [Moles/Vol] 109 mmol/L High 98-108 [facility] Comprehensive Metabolic Prof ilon 11-08-2024 Albumin [Mass/Vol] 3.2 g/dL Low 3.4-4.8 [facility] Comment on above: Performed By: #### L 500.4050, L300.3900, L100.0100 ####[facility] [address] [place], [address] Albumin/Globulin [Mass ratio] 1.6 {ratio} Normal 0.9-2.4 [facility] Comment on above: Performed By: #### L 500.4050, L300.3900, L100.0100 ####[facility] [address] [place], [address] ALK PHOS 52 U/L Normal 35-104 [facility] Comment on above: Performed By: #### L 500.4050, L300.3900, L100.0100 ####[facility] [address] [place], [address] ALT [Catalytic activity/Vol] 10 U/L Normal <=34 [facility] Comment on above: Performed By: #### L 500.4050, L300.3900, L100.0100 ####[facility] [address] [place], [address] AST [Catalytic activity/Vol] 22 U/L Normal <=31 [facility] Comment on above: Performed By: #### L 500.4050, L300.3900, L100.0100 ####[facility] [address] [place], [address] Bilirubin [Mass/Vol] 0.31 mg/dL Normal 0.00-1.30 [facility] Comment on above: Performed By: #### L 500.4050, L300.3900, L100.0100 ####[facility] [address] [place], [address] BUN/CRE 27.7 RATIO High 10-20 [facility] Comment on above: Performed By: #### L 500.4050, L300.3900, L100.0100 ####[facility] [address] [place], [address] Calcium [Mass/Vol] 8.2 mg/dL Normal 7.6-11.0 [facility] Comment on above: Performed By: #### L 500.4050, L300.3900, L100.0100 ####[facility] [address] [place], [address] Chloride [Moles/Vol] 109 mmol/L High 98-108 [facility] Comment on above: Performed By: #### L 500.4050, L300.3900, L100.0100 ####[facility] [address] [place], [address] CO2 [Moles/Vol] 22.4 mmol/L Normal 21.0-32.0 [facility] Comment on above: Performed By: #### L 500.4050, L300.3900, L100.0100 ####[facility] [address] [place], [address] Creatinine [Mass/Vol] 0.53 mg/dL Low 0.70-1.20 [facility] Comment on above: Performed By: #### L 500.4050, L300.3900, L100.0100 ####[facility] [address] [place], [address] ECRCL 44.68 ml/min Low 50-250 [facility] Comment on above: Performed By: #### L 500.4050, L300.3900, L100.0100 ####[facility] [address] [place], [address] GAP 9 Normal 5-15 [facility] Comment on above: Performed By: #### L 500.4050, L300.3900, L100.0100 ####[facility] [address] [place], [address] GFR/1.73 sq M.predicted among non-blacks MDRD (S/P/Bld) [Vol rate/Area] 103 mL/min/{1.73_m2} Normal >60 [facility] Comment on above: Result Comment: mL/m in/1.73m2 CKD-EPI Creatinine Equation (2020) Performed By: #### L 500.4050, L300.3900, L100.0100 ####[facility] [address] [place], [address] Globulin (S) [Mass/Vol] 2.0 g/dL Low 2.2-4.2 [facility] Comment on above: Performed By: #### L 500.4050, L300.3900, L100.0100 ####[facility] [address] [place], [address] Glucose [Mass/Vol] 98 mg/dL Normal 70-99 [facility] Comment on above: Performed By: #### L 500.4050, L300.3900, L100.0100 ####[facility] [address] [place], [address] Potassium [Moles/Vol] 3.8 mmol/L Normal 3.3-5.1 [facility] Comment on above: Performed By: #### L 500.4050, L300.3900, L100.0100 ####[facility] [address] [place], [address] Sodium [Moles/Vol] 140 mmol/L Normal 133-145 [facility] Comment on above: Performed By: #### L 500.4050, L300.3900, L100.0100 ####[facility] [address] [place], [address] T PROT 5.3 g/dL Low 5.9-8.4 [facility] Comment on above: Performed By: #### L 500.4050, L300.3900, L100.0100 ####[facility] [address] [place], [address] Urea nitrogen [Mass/Vol] 15 mg/dL Normal 4-19 [facility] Comment on above: Performed By: #### L 500.4050, L300.3900, L100.0100 ####[facility] [address] [place], [address] Discharge Instructionon 10-25 Discharge Instruction Normal [facility] Eosinophil percentageOrdered By: Annette Mendez on 11-08-2024 Eosinophils/100 WBC (Bld) 0.0 % 0-5 [facility] Erythrocyte distribution wid th ratioOrdered By: Annette Mendez on 11-08-2024 Erythrocyte distribution width (RBC) [Ratio] 13.8 % 11.6-14.6 [facility] Erythrocyte distribution wid th standard deviationOrdered By: Annette Mendez on 11-08-2024 Erythrocyte distribution width (RBC) [Ratio] 45.4 fl High 35.1-43.9 [facility] Glomerular filtration rate ( GFR) estimation/1.73 sq m using serum, plasma, or whole bOrdered By: Annette Mendez on 11-08-2024 GFR/1.73 sq M.predicted among non-blacks MDRD (S/P/Bld) [Vol rate/Area] 103 mL/min/{1.73_m2} >60 [facility] Comment on above: mL/min/1.73m2 CKD-EP I Creatinine Equation (2020) Hematocrit Auto (Bld) [Volum e fraction]Ordered By: Annette Mendez on 11-08-2024 Hematocrit (Bld) [Volume fraction] 27.5 % Low 37-47 [facility] Hemoglobin measurementOrdere d By: Annette Mendez on 11-08-2024 Hemoglobin (Bld) [Mass/Vol] 9.1 g/dL Low 12.0-15.0 [facility] Immature granulocytes/100 WB C Auto (Bld)Ordered By: Annette Mendez on 11-08-2024 Immature granulocytes/100 WBC (Bld) 0.700 % 0.0-0.9 [facility] Comment on above: IG% - Immature Granu locytes (promyelocytes, myelocytes and metamyelocytes) > 1% indicates that a LEFT SHIFT is Present. International normalized rat io (INR) calculationOrdered By: Annette Mendez on 11-08-2024 INR Coag (Bld) [Relative time] 1.1 {INR} [facility] Laboratory - Chemistry and C hemistry - challengeOrdered By: Annette Mendez on 08-15-2025 AST [Catalytic activity/Vol] 22 U/L <32 [facility] MCV (mean corpuscular volume ) determinationOrdered By: Annette Mendez on 11-08-2024 MCV (RBC) [Entitic vol] 90.2 fL 81-99 [facility] Mean corpuscular hemoglobin (MCH) determinationOrdered By: Annette Mendez on 11-08-2024 MCH (RBC) [Entitic mass] 29.8 pg 27.0-32.0 [facility] Mean corpuscular hemoglobin concentration (MCHC) determinationOrdered By: Annette Mendez on 11-08-2024 MCHC (RBC) [Mass/Vol] 33.1 g/dL 32-36 [facility] Mean platelet volume determi nationOrdered By: Annette Mendez on 11-08-2024 Platelet mean volume (Bld) [Entitic vol] 9.2 fL 6.2-12.0 [facility] Monocyte percentageOrdered B y: Annette Mendez on 11-08-2024 Monocytes/100 WBC (Bld) 6.4 % 0-10 [facility] Neutrophil percentageOrdered By: Annette Mendez on 11-08-2024 Neutrophils/100 WBC (Bld) 77.7 % High 47-70 [facility] No Panel InformationOrdered By: Annette Mendez on 11-08-2024 22 U/L <32 [facility] Nucleated red blood cell per centageOrdered By: Annette Mendez on 11-08-2024 Nucleated RBC/100 WBC (Bld) [Ratio] 0 % 0-5 [facility] Platelet countOrdered By: Ramses Mendez on 11-08-2024 Platelets (Bld) [#/Vol] 228 10*3/uL 150-450 [facility] Potassium measurement (mass/ volume)Ordered By: Annette Mendez on 11-08-2024 Potassium (Unsp spec) [Mass/Vol] 3.8 mmol/L 3.3-5.1 [facility] Prothrombin Time w/INRon INR Coag (PPP) [Relative time] 1.1 {INR} Normal [facility] Comment on above: Performed By: #### L 500.4050, L300.3900, L100.0100 ####[facility] [address] [place], [address] PT Coag (PPP) [Time] 13.9 s Normal 11.7-14.9 [facility] Comment on above: Performed By: #### L 500.4050, L300.3900, L100.0100 ####[facility] [address] [place], [address] Prothrombin timeOrdered By: Annette Mendez on 11-08-2024 PT Coag (PPP) [Time] 13.9 s 11.7-14.9 [facility] RBC Auto (Bld) [#/Vol]Ordere d By: Annette Mendez on 11-08-2024 RBC (Bld) [#/Vol] 3.05 10*6/uL Low 4.2-5.4 [facility] Serum creatinine measurement (mass/volume)Ordered By: Annette Mendez on 11-08-2024 Creatinine [Mass/Vol] 0.53 mg/dL Low 0.70-1.20 [facility] Serum globulin measurementOr dered By: Annette Mendez on 11-08-2024 Globulin (S) [Mass/Vol] 2.0 g/dL Low 2.2-4.2 [facility] Serum glucose measurement (m ass/volume)Ordered By: Annette Mendez on 11-08-2024 Glucose [Mass/Vol] 98 mg/dL 70-99 [facility] Serum or plasma alanine ramirez otransferase (ALT) measurementOrdered By: Annette Mendez on 11-08-2024 ALT [Catalytic activity/Vol] 10 U/L <35 [facility] Serum or plasma albumin renetta urement (mass/volume)Ordered By: Annette Mendez on 11-08-2024 Albumin [Mass/Vol] 3.2 g/dL Low 3.4-4.8 [facility] Serum or plasma albumin/glob ulin mass ratioOrdered By: Annette Mendez on 11-08-2024 Albumin/Globulin [Mass ratio] 1.6 {ratio} 0.9-2.4 [facility] Serum or plasma alkaline marquez sphatase measurementOrdered By: Annette Mendez on 11-08-2024 ALP [Catalytic activity/Vol] 52 U/L 35-104 [facility] Serum or plasma calcium renetta urement (mass/volume)Ordered By: Annette Mendez on 11-08-2024 Calcium [Mass/Vol] 8.2 mg/dL 7.6-11.0 [facility] Serum or plasma urea nitroge n measurement (mass/volume)Ordered By: Annette Mendez on 11-08-2024 Urea nitrogen [Mass/Vol] 15 mg/dL 4-19 [facility] Sodium levelOrdered By: Sparkle Mendez on 11-08-2024 Sodium [Moles/Vol] 140 mmol/L 133-145 [facility] Total proteinOrdered By: Daiana Mendez on 11-08-2024 Protein [Mass/Vol] 5.3 g/dL Low 5.9-8.4 [facility] White blood cell (WBC) count Ordered By: Annette Mendez on 11-08-2024 WBC (Bld) [#/Vol] 12.2 10*3/uL High 4.4-11.0 [facility] Abdomen/Pelvis W IV Cont ONL Yon 11-07-2024 Abdomen/Pelvis W IV Cont ONLY Normal [facility] Absolute lymphocyte countOrd ered By: Lluvia Vann on 11-07-2024 Lymphocytes Auto (Unsp spec) [#/Vol] 1.12 10*3/uL 0.83-4.51 [facility] Absolute neutrophil countOrd ered By: Lluvia Vann on 11-07-2024 Neutrophils (Bld) [#/Vol] 18.0 10*3/uL High 2.0-7.7 [facility] Anion gap in Serum or Plasma Ordered By: Lluvia Vann on 11-07-2024 Anion gap [Moles/Vol] 14 mmol/L 5-15 [facility] Automated lymphocyte count a s percentage of total leukocytesOrdered By: Lluvia Vann on 11-07-2024 Lymphocytes/100 WBC Auto (Unsp spec) 5.6 % Low 19-41 [facility] BUN/creatinine ratioOrdered By: Lluvia Vann on 11-07-2024 Urea nitrogen/Creatinine [Mass ratio] 24.9 mg/mg High 10-20 [facility] Basophil percentageOrdered B y: Lluvia Vann on 11-07-2024 Basophils/100 WBC (Bld) 0.2 % 0-1 [facility] Bilirubin Test strip Ql (U)O rdered By: Lluvia Vann on 11-07-2024 Bilirubin Ql (U) Negative Negative [facility] Bilirubin, totalOrdered By: Lluvia Vann on 11-07-2024 Bilirubin [Mass/Vol] 0.19 mg/dL 0.00-1.30 [facility] CBC W/Diff, Automatedon 10-25 Absolute Lymph 1.12 X10 3/uL Normal 0.83-4.51 [facility] Comment on above: Performed By: #### L 503.6005, L500.4050, L501.2450, L100.0100 ####[facility] [address] [place], [address] Absolute Neut 18.0 X10 3/uL High 2.0-7.7 [facility] Comment on above: Performed By: #### L 503.6005, L500.4050, L501.2450, L100.0100 ####[facility] [address] [place], [address] Basophils/100 WBC (Bld) 0.2 % Normal 0-1 [facility] Comment on above: Performed By: #### L 503.6005, L500.4050, L501.2450, L100.0100 ####[facility] [address] [place], [address] Eosinophils/100 WBC (Bld) 0.0 % Normal 0-5 [facility] Comment on above: Performed By: #### L 503.6005, L500.4050, L501.2450, L100.0100 ####[facility] [address] [place], [address] Erythrocyte distribution width (RBC) [Ratio] 13.3 % Normal 11.6-14.6 [facility] Comment on above: Performed By: #### L 503.6005, L500.4050, L501.2450, L100.0100 ####[facility] [address] [place], [address] Hematocrit (Bld) [Volume fraction] 30.3 % Low 37-47 [facility] Comment on above: Performed By: #### L 503.6005, L500.4050, L501.2450, L100.0100 ####[facility] [address] [place], [address] Hemoglobin (Bld) [Mass/Vol] 10.5 g/dL Low 12.0-15.0 [facility] Comment on above: Performed By: #### L 503.6005, L500.4050, L501.2450, L100.0100 ####[facility] [address] [place], [address] IG% 0.600 Normal 0.0-0.9 [facility] Comment on above: Result Comment: IG% - Immature Granulocytes (promyelocytes, myelocytes andmetamyelocytes) > 1% indicates that a LEFT SHIFT is Present. Performed By: #### L 503.6005, L500.4050, L501.2450, L100.0100 ####[facility] [address] [place], [address] Lymphocytes/100 WBC (Bld) 5.6 % Low 19-41 [facility] Comment on above: Performed By: #### L 503.6005, L500.4050, L501.2450, L100.0100 ####[facility] [address] [place], [address] MCH (RBC) [Entitic mass] 30.6 pg Normal 27.0-32.0 [facility] Comment on above: Performed By: #### L 503.6005, L500.4050, L501.2450, L100.0100 ####[facility] [address] [place], [address] MCHC (RBC) [Mass/Vol] 34.7 g/dL Normal 32-36 [facility] Comment on above: Performed By: #### L 503.6005, L500.4050, L501.2450, L100.0100 ####[facility] [address] [place], [address] MCV (RBC) [Entitic vol] 88.3 fL Normal 81-99 [facility] Comment on above: Performed By: #### L 503.6005, L500.4050, L501.2450, L100.0100 ####[facility] [address] [place], [address] Monocytes/100 WBC (Bld) 3.3 % Normal 0-10 [facility] Comment on above: Performed By: #### L 503.6005, L500.4050, L501.2450, L100.0100 ####[facility] [address] [place], [address] Neutrophils/100 WBC (Bld) 90.3 % High 47-70 [facility] Comment on above: Performed By: #### L 503.6005, L500.4050, L501.2450, L100.0100 ####[facility] [address] [place], [address] Nucleated RBC (Bld) [#/Vol] 0 10*3/uL Normal 0-5 [facility] Comment on above: Performed By: #### L 503.6005, L500.4050, L501.2450, L100.0100 ####[facility] [address] [place], [address] Platelet mean volume (Bld) [Entitic vol] 9.5 fL Normal 6.2-12.0 [facility] Comment on above: Performed By: #### L 503.6005, L500.4050, L501.2450, L100.0100 ####[facility] [address] [place], [address] Platelets (Bld) [#/Vol] 283 10*3/uL Normal 150-450 [facility] Comment on above: Performed By: #### L 503.6005, L500.4050, L501.2450, L100.0100 ####[facility] [address] [place], [address] RBC (Bld) [#/Vol] 3.43 10*6/uL Low 4.2-5.4 [facility] Comment on above: Performed By: #### L 503.6005, L500.4050, L501.2450, L100.0100 ####[facility] [address] [place], [address] RDW SD 42.7 fl Normal 35.1-43.9 [facility] Comment on above: Performed By: #### L 503.6005, L500.4050, L501.2450, L100.0100 ####[facility] [address] [place], [address] WBC (Bld) [#/Vol] 19.9 10*3/uL High 4.4-11.0 [facility] Comment on above: Performed By: #### L 503.6005, L500.4050, L501.2450, L100.0100 ####[facility] [address] [place], [address] CDIFF (PCR)on 11-07-2024 CDIFF Normal [facility] Comment on above: Performed By: #### M 100.6795, M100.6796, M100.637 ####[facility] [address] [place], [address] CNPNon 11-07-2024 CNPN Normal [facility] Carbon dioxide, total [Moles /volume] in Central venous bloodOrdered By: Lluvia Vann on 11-07-2024 CO2 [Moles/Vol] 21.4 mmol/L 21.0-32.0 [facility] Chloride assayOrdered By: Nitesh Vann on 11-07-2024 Chloride [Moles/Vol] 104 mmol/L 98-108 [facility] Clostridium Diff Toxin/Agon 11-07-2024 CDIFF (EIA) Normal [facility] Comment on above: Performed By: #### M 100.6795, M100.6796, M100.637 ####[facility] [address] [place], [address] Clostridium difficile detect ion by polymerase chain reactionOrdered By: Annette Mendez on 11-07-2024 C. difficile DNA SAUNDRA+probe Ql (Unsp spec) [facility] Comprehensive Metabolic Prof greg 11-07-2024 Albumin [Mass/Vol] 3.8 g/dL Normal 3.4-4.8 [facility] Comment on above: Performed By: #### L 503.6005, L500.4050, L501.2450, L100.0100 ####[facility] [address] [place], [address] Albumin/Globulin [Mass ratio] 1.4 {ratio} Normal 0.9-2.4 [facility] Comment on above: Performed By: #### L 503.6005, L500.4050, L501.2450, L100.0100 ####[facility] [address] [place], [address] ALK PHOS 74 U/L Normal 35-104 [facility] Comment on above: Performed By: #### L 503.6005, L500.4050, L501.2450, L100.0100 ####[facility] [address] [place], [address] ALT [Catalytic activity/Vol] 10 U/L Normal <=34 [facility] Comment on above: Performed By: #### L 503.6005, L500.4050, L501.2450, L100.0100 ####[facility] [address] [place], [address] AST [Catalytic activity/Vol] 23 U/L Normal <=31 [facility] Comment on above: Performed By: #### L 503.6005, L500.4050, L501.2450, L100.0100 ####[facility] [address] [place], [address] Bilirubin [Mass/Vol] 0.19 mg/dL Normal 0.00-1.30 [facility] Comment on above: Performed By: #### L 503.6005, L500.4050, L501.2450, L100.0100 ####[facility] [address] [place], [address] BUN/CRE 24.9 RATIO High 10-20 [facility] Comment on above: Performed By: #### L 503.6005, L500.4050, L501.2450, L100.0100 ####[facility] [address] [place], [address] Calcium [Mass/Vol] 8.7 mg/dL Normal 7.6-11.0 [facility] Comment on above: Performed By: #### L 503.6005, L500.4050, L501.2450, L100.0100 ####[facility] [address] [place], [address] Chloride [Moles/Vol] 104 mmol/L Normal 98-108 [facility] Comment on above: Performed By: #### L 503.6005, L500.4050, L501.2450, L100.0100 ####[facility] [address] [place], [address] CO2 [Moles/Vol] 21.4 mmol/L Normal 21.0-32.0 [facility] Comment on above: Performed By: #### L 503.6005, L500.4050, L501.2450, L100.0100 ####[facility] [address] [place], [address] Creatinine [Mass/Vol] 0.58 mg/dL Low 0.70-1.20 [facility] Comment on above: Performed By: #### L 503.6005, L500.4050, L501.2450, L100.0100 ####[facility] [address] [place], [address] ECRCL 43.16 ml/min Low 50-250 [facility] Comment on above: Performed By: #### L 503.6005, L500.4050, L501.2450, L100.0100 ####[facility] [address] [place], [address] GAP 14 Normal 5-15 [facility] Comment on above: Performed By: #### L 503.6005, L500.4050, L501.2450, L100.0100 ####[facility] [address] [place], [address] GFR/1.73 sq M.predicted among non-blacks MDRD (S/P/Bld) [Vol rate/Area] 100 mL/min/{1.73_m2} Normal >60 [facility] Comment on above: Result Comment: mL/m in/1.73m2 CKD-EPI Creatinine Equation (2020) Performed By: #### L 503.6005, L500.4050, L501.2450, L100.0100 ####[facility] [address] [place], [address] Globulin (S) [Mass/Vol] 2.7 g/dL Normal 2.2-4.2 [facility] Comment on above: Performed By: #### L 503.6005, L500.4050, L501.2450, L100.0100 ####[facility] [address] [place], [address] Glucose [Mass/Vol] 145 mg/dL High 70-99 [facility] Comment on above: Performed By: #### L 503.6005, L500.4050, L501.2450, L100.0100 ####[facility] [address] [place], [address] Potassium [Moles/Vol] 3.0 mmol/L Low 3.3-5.1 [facility] Comment on above: Performed By: #### L 503.6005, L500.4050, L501.2450, L100.0100 ####[facility] [address] [place], [address] Sodium [Moles/Vol] 140 mmol/L Normal 133-145 [facility] Comment on above: Performed By: #### L 503.6005, L500.4050, L501.2450, L100.0100 ####[facility] [address] [place], [address] T PROT 6.5 g/dL Normal 5.9-8.4 [facility] Comment on above: Performed By: #### L 503.6005, L500.4050, L501.2450, L100.0100 ####[facility] [address] [place], [address] Urea nitrogen [Mass/Vol] 15 mg/dL Normal 4-19 [facility] Comment on above: Performed By: #### L 503.6005, L500.4050, L501.2450, L100.0100 ####[facility] [address] [place], [address] ENTERIC PATHOGEN PANEL STOOL on 11-07-2024 EP PANEL Normal [facility] Comment on above: Performed By: #### M 1006734, M100.6796, M100.637 ####[facility] [address] [place], [address] Emergency Department Summary on 11-07-2024 Emergency Department Summary Normal [facility] Eosinophil percentageOrdered By: Lluvia Vann on 11-07-2024 Eosinophils/100 WBC (Bld) 0.0 % 0-5 [facility] Erythrocyte distribution wid th ratioOrdered By: Lluvia Vann on 11-07-2024 Erythrocyte distribution width (RBC) [Ratio] 13.3 % 11.6-14.6 [facility] Erythrocyte distribution wid th standard deviationOrdered By: Lluvia Vann on 11-07-2024 Erythrocyte distribution width (RBC) [Ratio] 42.7 fl 35.1-43.9 [facility] Glomerular filtration rate ( GFR) estimation/1.73 sq m using serum, plasma, or whole bOrdered By: Lluvia Vann on 11-07-2024 GFR/1.73 sq M.predicted among non-blacks MDRD (S/P/Bld) [Vol rate/Area] 100 mL/min/{1.73_m2} >60 [facility] Comment on above: mL/min/1.73m2 CKD-EP I Creatinine Equation (2020) H AND P Exam - Hospitaliston 11-07-2024 H&P Exam - Hospitalist Normal [facility] Hematocrit Auto (Bld) [Volum e fraction]Ordered By: Lluvia Vann on 11-07-2024 Hematocrit (Bld) [Volume fraction] 30.3 % Low 37-47 [facility] Hemoglobin measurementOrdere d By: Lluvia Vann on 11-07-2024 Hemoglobin (Bld) [Mass/Vol] 10.5 g/dL Low 12.0-15.0 [facility] Immature granulocytes/100 WB C Auto (Bld)Ordered By: Lluvia Vann on 11-07-2024 Immature granulocytes/100 WBC (Bld) 0.600 % 0.0-0.9 [facility] Comment on above: IG% - Immature Granu locytes (promyelocytes, myelocytes and metamyelocytes) > 1% indicates that a LEFT SHIFT is Present. Ketones Test strip Ql (U)Ord ered By: Lluvia Vann on 11-07-2024 Ketones Ql (U) Negative Negative [facility] Laboratory - Chemistry and C hemistry - challengeOrdered By: Lluvia Valenciaer on 11-07-2024 AST [Catalytic activity/Vol] 23 U/L <32 [facility] Lactic Acidon 11-07-2024 Lactate [Moles/Vol] 1.8 mmol/L Normal 0.0-2.0 [facility] Comment on above: Performed By: #### L 503.6005 ####[facility] [address] [place], [address] Lactate [Moles/Vol] 2.2 mmol/L Invalid Interpretation Code 0.0-2.0 [facility] Comment on above: Order Comment: Y Result Comment: Crit ical Result(s) Called at 1330: TO LEYDI by:KCLAPPER??Results read back by same. Performed By: #### L 503.6005, L500.4050, L501.2450, L100.0100 ####[facility] [address] [place], [address] Lactic acid measurementOrder ed By: Lluviaasuncion Vann on 11-07-2024 Lactate [Moles/Vol] 1.8 mmol/L 0.0-2.0 [facility] Lactate [Moles/Vol] 2.2 mmol/L High 0.0-2.0 [facility] Comment on above: Critical Result(s) C alled at 1330: TO Klick2ContactOCHSTETLER by: KCLAPPER Results read back by same. Lipaseon 11-07-2024 Lipase [Catalytic activity/Vol] 29 U/L Normal 13-75 [facility] Comment on above: Result Comment: Efrem caldwell note:LIPASE revised reference range effective 22.New Lipase methodology. Expected to produce lower valuesthan the previous assay method.NEW Reference Range: 13 - 75 U/L Performed By: #### L 503.6005, L500.4050, L501.2450, L100.0100 ####[facility] [address] [place], [place], [address] Lipase measurementOrdered By : Lluvia Vann on 11-07-2024 Lipase [Catalytic activity/Vol] 29 U/L 13-75 [facility] Comment on above: Please note:LIPASE r evised reference range effective 22. New Lipase methodology. Expected to produce lower values than the previous assay method. NEW Reference Range: 13 - 75 U/L MCV (mean corpuscular volume ) determinationOrdered By: Lluvia Vann on 11-07-2024 MCV (RBC) [Entitic vol] 88.3 fL 81-99 [facility] MRI Abd WITH and W/O Contras ton 11-07-2024 MRI Abd WITH and W/O Contrast Normal [facility] Magnetic resonance imaging r eportOrdered By: Cosmo Montero on 11-07-2024 Study report [facility] Services [address] [place] [address] MRI Abd WITH and W/O Contrast MR#: [id number] Acct: [id number] Name: LAKESHA KOCH Rep #: [id number] : 1960 F 64 From: Alex Montero MD PCP: Aubrey Lopez Tana TRAY FILLER-C Status: ADM IN Study:MRI Abd WITH and W/O Contrast Date of E xam: 11/07/24 Exam# [id number] Ordering Dr: Wendy Mendez MD PROCEDURE: MRI [...] cyst. *Status post right hemicolectomy. Reading Location: [id number] CC: [facility] 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: Signed [facility] Mean corpuscular hemoglobin (MCH) determinationOrdered By: Lluvia Vann on 11-07-2024 MCH (RBC) [Entitic mass] 30.6 pg 27.0-32.0 [facility] Mean corpuscular hemoglobin concentration (MCHC) determinationOrdered By: Lluvia Vann on 11-07-2024 MCHC (RBC) [Mass/Vol] 34.7 g/dL 32-36 [facility] Mean platelet volume determi nationOrdered By: Lluvia Vann on 11-07-2024 Platelet mean volume (Bld) [Entitic vol] 9.5 fL 6.2-12.0 [facility] Microscopic analysis of urin e for red blood cells (RBC)Ordered By: Lluvia Vann on 11-07-2024 Microscopic analysis of urine for red blood cells (RBC) 0 SEEN /hpf 0-5 [facility] Monocyte percentageOrdered B y: Lluvia Vann on 11-07-2024 Monocytes/100 WBC (Bld) 3.3 % 0-10 [facility] Mucus LM Ql (Urine sed)Order ed By: Lluvia Vann on 11-07-2024 Mucus Ql (Urine sed) 0 SEEN /hpf [facility] Neutrophil percentageOrdered By: Lluvia Vann on 11-07-2024 Neutrophils/100 WBC (Bld) 90.3 % High 47-70 [facility] Nitrite Test strip Ql (U)Ord ered By: Lluvia Vann on 11-07-2024 Nitrite Ql (U) Negative Negative [facility] Nucleated red blood cell per centageOrdered By: Lluvia Vann on 11-07-2024 Nucleated RBC/100 WBC (Bld) [Ratio] 0 % 0-5 [facility] Platelet countOrdered By: Nitesh Vann on 11-07-2024 Platelets (Bld) [#/Vol] 283 10*3/uL 150-450 [facility] Potassium measurement (mass/ volume)Ordered By: Lluvia Vann on 11-07-2024 Potassium (Unsp spec) [Mass/Vol] 3.0 mmol/L Low 3.3-5.1 [facility] Protein Test strip Ql (U)Ord ered By: Lluvia Vann on 11-07-2024 Protein Ql (U) Negative Negative [facility] RBC Auto (Bld) [#/Vol]Ordere d By: Lluvia Vann on 11-07-2024 RBC (Bld) [#/Vol] 3.43 10*6/uL Low 4.2-5.4 [facility] Serum creatinine measurement (mass/volume)Ordered By: Lluvia Vann on 11-07-2024 Creatinine [Mass/Vol] 0.58 mg/dL Low 0.70-1.20 [facility] Serum globulin measurementOr dered By: Lluvia Vann on 11-07-2024 Globulin (S) [Mass/Vol] 2.7 g/dL 2.2-4.2 [facility] Serum glucose measurement (m ass/volume)Ordered By: Lluvia Vann on 11-07-2024 Glucose [Mass/Vol] 145 mg/dL High 70-99 [facility] Serum or plasma alanine ramirez otransferase (ALT) measurementOrdered By: Lluvia Vann on 11-07-2024 ALT [Catalytic activity/Vol] 10 U/L <35 [facility] Serum or plasma albumin renetta urement (mass/volume)Ordered By: Lluvia Vann on 11-07-2024 Albumin [Mass/Vol] 3.8 g/dL 3.4-4.8 [facility] Serum or plasma albumin/glob ulin mass ratioOrdered By: Lluvia Vann on 11-07-2024 Albumin/Globulin [Mass ratio] 1.4 {ratio} 0.9-2.4 [facility] Serum or plasma alkaline marquez sphatase measurementOrdered By: Lluvia Vann on 11-07-2024 ALP [Catalytic activity/Vol] 74 U/L 35-104 [facility] Serum or plasma calcium renetta urement (mass/volume)Ordered By: Lluvia Vann on 11-07-2024 Calcium [Mass/Vol] 8.7 mg/dL 7.6-11.0 [facility] Serum or plasma urea nitroge n measurement (mass/volume)Ordered By: Lluvia Vann on 11-07-2024 Urea nitrogen [Mass/Vol] 15 mg/dL 4-19 [facility] Sodium levelOrdered By: Siddhartha Vann on 11-07-2024 Sodium [Moles/Vol] 140 mmol/L 133-145 [facility] Squamous epithelial cells de tection in urine sediment by light microscopyOrdered By: Lluvia Vann on 11-07-2024 Epithelial cells.squamous LM Ql (Urine sed) 0 SEEN /hpf 5-10 [facility] Stool Clostridium difficile detectionOrdered By: Annette Mendez on 11-07-2024 C. difficile Ql (Stl) [facility] Total proteinOrdered By: Pau Vann on 11-07-2024 Protein [Mass/Vol] 6.5 g/dL 5.9-8.4 [facility] Urinalysis, Completeon 11-07 BACTERIA 0 SEEN Normal None Seen [facility] Comment on above: Order Comment: CLEAN CATCH Performed By: #### L 400.0001 ####[facility] [address] [place], [place], [address] EPI,SQUAMOUS 0 SEEN Normal 5-10 [facility] Comment on above: Order Comment: CLEAN CATCH Performed By: #### L 400.0001 ####[facility] [address] [place], [place], [address] Mucus Ql (Urine sed) 0 SEEN Normal [facility] Comment on above: Order Comment: CLEAN CATCH Performed By: #### L 400.0001 ####[facility] [address] [place], [place], [id number] RBC 0 SEEN Normal 0-5 [facility] Comment on above: Order Comment: CLEAN CATCH Performed By: #### L 400.0001 ####[facility] [address] [place], [place], [address] WBC 0 SEEN Normal 0-5 [facility] Comment on above: Order Comment: CLEAN CATCH Performed By: #### L 400.0001 ####[facility] [address] [place], [place], [id number] Urine clarityOrdered By: Pau Vann on 11-07-2024 Clarity (U) Clear Clear [facility] Urine color determinationOrd ered By: Lluvia Vann on 11-07-2024 Color (U) Yellow Yellow [facility] Urine glucose detectionOrder ed By: Lluvia Vann on 11-07-2024 Glucose Ql (U) Normal mg/dl Normal [facility] Urine leukocyte esterase det ection by dipstickOrdered By: Lluvia Vann on 11-07-2024 Leukocyte esterase Test strip Ql (U) Negative Negative [facility] Urine pHOrdered By: Lluvia cabrales on 11-07-2024 pH (U) 6.5 [pH] 5.0 - 8.0 [facility] Urine sediment bacteria coun t by microscopy (number/high power field)Ordered By: Lluvia Vann on 11-07-2024 Bacteria LM.HPF (Urine sed) [#/Area] 0 /[HPF] None Seen [facility] Urine specific gravity measu rementOrdered By: Lluvia Vann on 11-07-2024 Specific gravity (U) [Rel density] 1.010 1.002-1.03 0 [facility] Urine urobilinogen measureme ntOrdered By: Lluvia Vann on 11-07-2024 Urobilinogen Ql (U) Normal mg/dl Normal [facility] White blood cell (WBC) count Ordered By: Lluvia Vann on 11-07-2024 WBC (Bld) [#/Vol] 19.9 10*3/uL High 4.4-11.0 [facility] White blood cell countOrdere d By: Lluvia Vann on 11-07-2024 White blood cell count 0 SEEN /hpf 0-5 [facility] CBC W Auto Differential pane l (Bld)on 11-05-2024 Basophils (Bld) [#/Vol] 0.09 10*3/uL [facility] Basophils/100 WBC (Bld) 1.2 % [facility] Differential cell count method Nom (Bld) Auto [facility] Eosinophils (Bld) [#/Vol] 0.70 10*3/uL High [facility] Eosinophils/100 WBC (Bld) 9.4 % [facility] Erythrocyte distribution width (RBC) [Ratio] 13.2 % 11.5 - 15.0 % [facility] Hematocrit (Bld) [Volume fraction] 32.2 % Low 36.0 - 46.0 % [facility] Hemoglobin (Bld) [Mass/Vol] 10.7 g/dL Low 11.5 - 15.5 g/dL [facility] Immature granulocytes (Bld) [#/Vol] [facility] Immature granulocytes/100 WBC (Bld) 0.3 % [facility] Interpretation and review of laboratory results Abnormal [facility] Lymphocytes (Bld) [#/Vol] 1.77 10*3/uL [facility] Lymphocytes/100 WBC (Bld) 23.7 % [facility] MCH (RBC) [Entitic mass] 29.7 pg 26.0 - 34.0 pg [facility] MCHC (RBC) [Mass/Vol] 33.2 g/dL 30.5 - 36.0 g/dL [facility] MCV (RBC) [Entitic vol] 89.4 fL 80.0 - 100.0 fL [facility] Monocytes (Bld) [#/Vol] 0.55 10*3/uL [facility] Monocytes/100 WBC (Bld) 7.4 % [facility] Neutrophils (Bld) [#/Vol] 4.34 10*3/uL [facility] Neutrophils/100 WBC (Bld) 58.0 % [facility] Nucleated RBC (Bld) [#/Vol] [facility] Nucleated RBC/100 WBC (Bld) [Ratio] 0.0 % /100 WBC [facility] Platelet mean volume (Bld) [Entitic vol] 9.1 fL 9.0 - 12.7 fL [facility] Platelets (Bld) [#/Vol] 284 10*3/uL [facility] RBC (Bld) [#/Vol] 3.60 10*6/uL Low 3.90 - 5.20 m/uL [facility] WBC (Bld) [#/Vol] 7.47 10*3/uL [facility] Basophils (Bld) [#/Vol] 0.09 10*3/uL Normal <0.11 [facility] Comment on above: Order Comment: Speci men Type: BLOOD SPECIMENOrdering Facility: [facility] Address: [address] [place] [address] Performed By: #### 5 7021-8 ####[facility] MILLTOWNCLIA [id number] [place] [address] [place] Basophils/100 WBC (Bld) 1.2 % Normal [facility] Comment on above: Order Comment: Speci men Type: BLOOD SPECIMENOrdering Facility: [facility] Address: [address] [place] [address] Performed By: #### 5 7021-8 ####[facility] MILLWNCLIA [id number] [place] [address] [place] Differential cell count method Nom (Bld) Auto Normal [facility] Comment on above: Order Comment: Speci men Type: BLOOD SPECIMENOrdering Facility: [facility] Address: [address] [place] [address] Performed By: #### 5 7021-8 ####[facility] MILLTOWNCLIA [id number] [place] [address] [place] Eosinophils (Bld) [#/Vol] 0.70 10*3/uL High <0.46 [facility] [place] Comment on above: Order Comment: Speci men Type: BLOOD SPECIMENOrdering Facility: [facility] Address: [address] [place] [address] Performed By: #### 5 7021-8 ####[facility] MILLTOWNCLIA [id number] [place] [address] [place] Eosinophils/100 WBC (Bld) 9.4 % Normal [facility] Comment on above: Order Comment: Speci men Type: BLOOD SPECIMENOrdering Facility: [facility] Address: [address] [place] [address] Performed By: #### 5 7021-8 ####[facility] BISHNUWINSTON SALEMKALIELetha [id number] [place] [address] [place] Erythrocyte distribution width (RBC) [Ratio] 13.2 % Normal 11.5-15.0 [facility] Comment on above: Order Comment: Speci men Type: BLOOD SPECIMENOrdering Facility: [facility] Address: [address] [place] [address] Performed By: #### 5 7021-8 ####[facility] HOSPITALKALIELetha [id number] [place] [address] [place] Hematocrit (Bld) [Volume fraction] 32.2 % Low 36.0-46.0 [facility] Comment on above: Order Comment: Speci men Type: BLOOD SPECIMENOrdering Facility: [facility] Address: [address] [place] [address] Performed By: #### 5 7021-8 ####[facility] HOSPITALFUAD [id number] [place] [address] [place] Hemoglobin (Bld) [Mass/Vol] 10.7 g/dL Low 11.5-15.5 [facility] Comment on above: Order Comment: Speci men Type: BLOOD SPECIMENOrdering Facility: [facility] Address: [address] [place] [address] Performed By: #### 5 7021-8 ####[facility] HOSPITALNCLI [id number] [place] [address] [place] Immature granulocytes (Bld) [#/Vol] 10*3/uL Normal <0.10 [facility] Comment on above: Order Comment: Speci men Type: BLOOD SPECIMENOrdering Facility: [facility] Address: [address] [place] [address] Performed By: #### 5 7021-8 ####[facility] [id number] [place] [address] [place] Immature granulocytes/100 WBC (Bld) 0.3 % Normal [facility] Comment on above: Order Comment: Speci men Type: BLOOD SPECIMENOrdering Facility: [facility] Address: [address] [place] [address] Performed By: #### 5 7021-8 ####[facility] [id number] [place] [address] [place] Lymphocytes (Bld) [#/Vol] 1.77 10*3/uL Normal 1.00-4.00 [facility] Comment on above: Order Comment: Speci men Type: BLOOD SPECIMENOrdering Facility: [facility] Address: [address] [place] [address] Performed By: #### 5 7021-8 ####[facility] [id number] [address] [place] Lymphocytes/100 WBC (Bld) 23.7 % Normal [facility] Comment on above: Order Comment: Speci men Type: BLOOD SPECIMENOrdering Facility: [facility] Address: [address] [place] [address] Performed By: #### 5 7021-8 ####[facility] [id number] [place] [address] [place] MCH (RBC) [Entitic mass] 29.7 pg Normal 26.0-34.0 [facility] Comment on above: Order Comment: Speci men Type: BLOOD SPECIMENOrdering Facility: [facility] Address: [address] [place] [address] Performed By: #### 5 7021-8 ####[facility] MILLWNCLIA [id number] [place] [address] [place] MCHC (RBC) [Mass/Vol] 33.2 g/dL Normal 30.5-36.0 [facility] Comment on above: Order Comment: Speci men Type: BLOOD SPECIMENOrdering Facility: [facility] Address: [address] [place] [address] Performed By: #### 5 7021-8 ####[facility] HOSPITALNCLIA [id number] [place] [address] [place] MCV (RBC) [Entitic vol] 89.4 fL Normal 80.0-100.0 [facility] Comment on above: Order Comment: Speci men Type: BLOOD SPECIMENOrdering Facility: [facility] Address: [address] [place] [address] Performed By: #### 5 7021-8 ####[facility] H[facility]PITALNCLIA [id number] [place] [address] [place] Monocytes (Bld) [#/Vol] 0.55 10*3/uL Normal <0.87 [facility] Comment on above: Order Comment: Speci men Type: BLOOD SPECIMENOrdering Facility: [facility] Address: [address] [place] [address] Performed By: #### 5 7021-8 ####[facility]ITALNCLIA [id number] [place] [address] [place] Monocytes/100 WBC (Bld) 7.4 % Normal [facility] Comment on above: Order Comment: Speci men Type: BLOOD SPECIMENOrdering Facility: [facility] Address: [address] [place] [address] Performed By: #### 5 7021-8 ####[facility]ITALNCLIA [id number] [place] [address] [place] Neutrophils (Bld) [#/Vol] 4.34 10*3/uL Normal 1.45-7.50 [facility] Comment on above: Order Comment: Speci men Type: BLOOD SPECIMENOrdering Facility: [facility] Address: [address] [place] [address] Performed By: #### 5 7021-8 ####[facility] ERWNCLIA [id number] [place] [address] [place] Neutrophils/100 WBC (Bld) 58.0 % Normal [facility] Comment on above: Order Comment: Speci men Type: BLOOD SPECIMENOrdering Facility: [facility] Address: [address] [place] [address] Performed By: #### 5 7021-8 ####[facility]ITALLIA [id number] [place] [address] [place] Nucleated RBC (Bld) [#/Vol] 10*3/uL Normal <0.01 [facility] Comment on above: Order Comment: Speci men Type: BLOOD SPECIMENOrdering Facility: [facility] Address: [address] [place] [address] Performed By: #### 5 7021-8 ####[facility]ITALL[facility] [id number] [place] [address] [place] Nucleated RBC/100 WBC (Bld) [Ratio] 0.0 /100 WBC Normal [facility] Comment on above: Order Comment: Speci men Type: BLOOD SPECIMENOrdering Facility: [facility] Address: [address] [place] [address] Performed By: #### 5 7021-8 ####[facility]ITALNCLIA [id number] [place] [address] [place] Platelet mean volume (Bld) [Entitic vol] 9.1 fL Normal 9.0-12.7 [facility] Comment on above: Order Comment: Speci men Type: BLOOD SPECIMENOrdering Facility: [facility] Address: [address] [place] [address] Performed By: #### 5 7021-8 ####[facility] MARCONCCALDERONA [id number] [place] [address] [place] Platelets (Bld) [#/Vol] 284 10*3/uL Normal 150-400 [facility] Comment on above: Order Comment: Speci men Type: BLOOD SPECIMENOrdering Facility: [facility] Address: [address] [place] [address] Performed By: #### 5 7021-8 ####[facility]ITALNCLIA [id number] [place] [address] [place] RBC (Bld) [#/Vol] 3.60 10*6/uL Low 3.90-5.20 [facility] Comment on above: Order Comment: Speci men Type: BLOOD SPECIMENOrdering Facility: [facility] Address: [address] [place] [address] Performed By: #### 5 7021-8 ####[facility]ITALNCLIA [id number] [place] [address] [place] WBC (Bld) [#/Vol] 7.47 10*3/uL Normal 3.70-11.00 [facility] Comment on above: Order Comment: Speci men Type: BLOOD SPECIMENOrdering Facility: [facility] Address: [address] [place] [address] Performed By: #### 5 7021-8 ####[facility]ITALNCLIA [id number] [place] [address] [place] CEA SerPl-mCncon 11-05-2024 Carcinoembryonic Ag [Mass/Vol] 8.4 ng/mL High <=2.9 [facility] Comment on above: Order Comment: Speci men Type: BLOOD SPECIMENOrdering Facility: [facility] Address: [address] [place] [address] Result Comment: Carc inoembryonic antigen test is used as an aid in monitoring response to treatment or recurrence in patients with established colorectal, breast, lung, prostatic, pancreatic, and ovarian carcinomas. Clinical correlation is required.The Carcinoembryonic antigen test was performed using the [employer] DXI paramagnetic particle chemiluminescent immunoassay method. Results obtained with different assay methods or kits cannot be used interchangeably. Performed By: #### 2 039-6 ####[facility] LABCLIA [id number] [place] [address] [place] CNOVSPon 11-05-2024 CNOVSP Normal [facility] Comprehensive metabolic 2000 panelOrdered By: Merlyn Veloz on 11-05-2024 Albumin [Mass/Vol] 3.7 g/dL Low 3.9 - 4.9 g/dL [facility] ALP [Catalytic activity/Vol] 118 U/L 34 - 123 U/L [facility] ALT [Catalytic activity/Vol] 7 U/L 7 - 38 U/L [facility] Anion gap [Moles/Vol] 10 mmol/L 8 - 15 mmol/L [facility] AST [Catalytic activity/Vol] 16 U/L 13 - 35 U/L [facility] Bilirubin [Mass/Vol] mg/dL Low 0.2 - 1 .3 mg/dL [facility] Calcium [Mass/Vol] 9.2 mg/dL 8.5 - 10. 2 mg/dL [facility] Chloride [Moles/Vol] 105 mmol/L 98 - 10 7 mmol/L [facility] CO2 [Moles/Vol] 24 mmol/L 22 - 30 mmol/L [facility] Creatinine [Mass/Vol] 0.50 mg/dL Low 0.58 - 0.96 mg/dL [facility] GFR/1.73 sq M.predicted among non-blacks MDRD (S/P/Bld) [Vol rate/Area] 104 mL/min/{1.73_m2} - PINF [facility] Comment on above: Estimated Glomerular Filtration Rate [...] [Mass/Vol] 82 mg/dL 74 - 99 mg/dL [facility] Comment on above: The [place] Di[employer] Association (ADA) provides guidance for [...] Standards of Medical Care in Diabetes 2016, [place] [employer]. Diabetes Care. 2016.39(Suppl 1). Interpretation and review of laboratory results Abnormal [facility] Potassium [Moles/Vol] 3.6 mmol/L Low 3.7 - 5.1 mmol/L [facility] Protein [Mass/Vol] 6.2 g/dL Low 6.3 - 8.0 g/dL [facility] Sodium [Moles/Vol] 139 mmol/L 136 - 144 mmol/L [facility] Urea nitrogen [Mass/Vol] 17 mg/dL 7 - 21 mg/dL [facility] Comprehensive metabolic 2000 panelon 11-05-2024 Albumin [Mass/Vol] 3.7 g/dL Low 3.9-4.9 [facility] Comment on above: Order Comment: Abdouli men Type: BLOOD SPECIMENOrdering Facility: [facility] Address: [address] [place] [address] Performed By: #### 1 9123-9, 32504-7 ####[facility]IAN [facility] MEDICAL CENTERFUAD [id number] [place] [address] [place] ALP [Catalytic activity/Vol] 118 U/L Normal 34-123 [facility] Comment on above: Order Comment: Speci men Type: BLOOD SPECIMENOrdering Facility: [facility] Address: [address] [place] [address] Performed By: #### 1 9123-9, 23927-7 ####[facility] CHRISTIAN [place] [id number] [place] [address] [place] ALT [Catalytic activity/Vol] 7 U/L Normal 7-38 [facility] Comment on above: Order Comment: Speci men Type: BLOOD SPECIMENOrdering Facility: [facility] Address: [address] [place] [address] Performed By: #### 1 9123-9, 38416-9 ####[facility] LALYROMMELA [id number] [place] [address] [place] Anion gap [Moles/Vol] 10 mmol/L Normal 8-15 [facility] Comment on above: Order Comment: Speci men Type: BLOOD SPECIMENOrdering Facility: [facility] Address: [address] [place] [address] Performed By: #### 1 9123-9, 41606-7 ####[facility] BISHNUWINSTON SALEMGUMEA [id number] [place] [address] [place] AST [Catalytic activity/Vol] 16 U/L Normal 13-35 [facility] Comment on above: Order Comment: Speci men Type: BLOOD SPECIMENOrdering Facility: [facility] Address: [address] [place] [address] Performed By: #### 1 9123-9, 08169-9 ####[facility] HOSPITALKALIELIA [id number] [place] [address] [place] Bilirubin [Mass/Vol] mg/dL Low 0.2-1.3 [facility] Comment on above: Order Comment: Speci men Type: BLOOD SPECIMENOrdering Facility: [facility] Address: [address] [place] [address] Performed By: #### 1 9123-9, 37771-5 ####[facility]STIAN MILLTOWNCLIA [id number] [place] [address] [place] Calcium [Mass/Vol] 9.2 mg/dL Normal 8.5-10.2 [facility] Comment on above: Order Comment: Speci men Type: BLOOD SPECIMENOrdering Facility: [facility] Address: [address] [place] [address] Performed By: #### 1 9123-9, 15880-1 ####[facility] MILLTOWNCLIA [id number] [place] [address] [place] Chloride [Moles/Vol] 105 mmol/L Normal 98-107 [facility] Comment on above: Order Comment: Speci men Type: BLOOD SPECIMENOrdering Facility: [facility] Address: [address] [place] [address] Performed By: #### 1 91239, ####[facility]PITALL[facility] [id number] [place] [address] [place] CO2 [Moles/Vol] 24 mmol/L Normal 22-30 [facility] Comment on above: Order Comment: Speci men Type: BLOOD SPECIMENOrdering Facility: [facility] Address: [address] [place] [address] Performed By: #### 1 9123-9, ####[facility] MILLTOWNCLIA [id number] [place] [address] [place] Creatinine [Mass/Vol] 0.50 mg/dL Low 0.58-0.96 [facility] Comment on above: Order Comment: Speci men Type: BLOOD SPECIMENOrdering Facility: [facility] Address: [address] [place] [address] Performed By: #### 1 9123-9, 51650-3 ####[facility] MILLTOWNCLIA [id number] [place] [address] [place] eGFRcr SerPlBld CKD-EPI 2020 104 mL/min/1.73m??? Normal >=60 [facility] Comment on above: Order Comment: Umesh lupis Type: BLOOD SPECIMENOrdering Facility: [facility] Address: [address] [place] [address] Result Comment: Sana mated Glomerular Filtration Rate [...] actual GFR. Performed By: #### 1 9123-9, 52926-4 ####[facility] [id number] [place] [address] [place] Glucose [Mass/Vol] 82 mg/dL Normal 74-99 [facility] Comment on above: Order Comment: Umesh baugh Type: BLOOD SPECIMENOrdering Facility: [facility] Address: [address] [place] [address] Result Comment: The [place] Diabetes Association (ADA) provides guidance for cutoff [...] Standards of Medical Care in Diabetes 2016, [place] [employer]. Diabetes Care. 2016.39(Suppl 1). Performed By: #### 1 9123-9, 83954-6 ####[facility] HOSPITALLI [id number] [place] [address] [place] Potassium [Moles/Vol] 3.6 mmol/L Low 3.7-5.1 [facility] Comment on above: Order Comment: Speci men Type: BLOOD SPECIMENOrdering Facility: [facility] Address: [address] [place] [address] Performed By: #### 1 9123-9, 35794-5 ####[facility] MILLYONYA [id number] [place] [address] [place] Protein [Mass/Vol] 6.2 g/dL Low 6.3-8.0 [facility] Comment on above: Order Comment: Speci men Type: BLOOD SPECIMENOrdering Facility: [facility] Address: [address] [place] [address] Performed By: #### 1 9123-9, 70878-5 ####[facility] ERCRUZITO [id number] [place] [address] [place] Sodium [Moles/Vol] 139 mmol/L Normal 136-144 [facility] Comment on above: Order Comment: Speci men Type: BLOOD SPECIMENOrdering Facility: [facility] Address: [address] [place] [address] Performed By: #### 1 9123-9, 50825-0 ####[facility] HOSPITALGUMEA [id number] [place] [address] [place] Urea nitrogen [Mass/Vol] 17 mg/dL Normal 7-21 [facility] Comment on above: Order Comment: Speci men Type: BLOOD SPECIMENOrdering Facility: [facility] Address: [address] [place] [address] Performed By: #### 1 9123-9, 56944-0 ####[facility]ITALNCLIA [id number] [place] [address] [place] MAGNESIUMon 11-05-2024 Magnesium [Mass/Vol] 1.9 mg/dL 1.7 - 2 .3 mg/dL [facility] Magnesium SerPl-mCncon 11-05 Magnesium [Mass/Vol] 1.9 mg/dL Normal 1.7-2.3 [facility] Comment on above: Order Comment: Speci men Type: BLOOD SPECIMENOrdering Facility: [facility] Address: [address] [place] [address] Performed By: #### 1 9123-9, 01389-0 ####[facility] MILLBHC VALLE VISTA HOSPITALLIA [id number] [place] [address] [place] Magnesium [Mass/Vol]on 11-05 Interpretation and review of laboratory results Normal [facility] CNPNon 10-25-2024 CNPN Normal [facility] CNPNon 10-24-2024 CNPN Normal [facility] Absolute lymphocyte countOrd ered By: Ankit Marsh on 10-23-2024 Lymphocytes Auto (Unsp spec) [#/Vol] 1.13 10*3/uL 0.83-4.51 [facility] Absolute neutrophil countOrd ered By: Ankit Marsh on 10-23-2024 Neutrophils (Bld) [#/Vol] 4.7 10*3/uL 2.0-7.7 [facility] Anion gap in Serum or Plasma Ordered By: Ankit Marsh on 10-23-2024 Anion gap [Moles/Vol] 14 mmol/L 5-15 [facility] Automated lymphocyte count a s percentage of total leukocytesOrdered By: Ankit Marsh on 10-23-2024 Lymphocytes/100 WBC Auto (Unsp spec) 17.9 % Low 19-41 [facility] BUN/creatinine ratioOrdered By: Ankit Marsh on 10-23-2024 Urea nitrogen/Creatinine [Mass ratio] 29.3 mg/mg High 10-20 [facility] Basophil percentageOrdered B y: Ankit Marsh on 10-23-2024 Basophils/100 WBC (Bld) 0.8 % 0-1 [facility] Bilirubin, totalOrdered By: Ankit Marsh on 10-23-2024 Bilirubin [Mass/Vol] 0.25 mg/dL 0.00-1.30 [facility] CBC W/Diff, Automatedon 07-3 0-2025 Absolute Lymph 1.13 X10 3/uL Normal 0.83-4.51 [facility] Comment on above: Performed By: #### L 500.4050, L501.2450, L100.0100 ####[facility] [address] [place], [address] Absolute Neut 4.7 X10 3/uL Normal 2.0-7.7 [facility] Comment on above: Performed By: #### L 500.4050, L501.2450, L100.0100 ####[facility] [address] [place], [address] Basophils/100 WBC (Bld) 0.8 % Normal 0-1 [facility] Comment on above: Performed By: #### L 500.4050, L501.2450, L100.0100 ####[facility] [address] [place], [address] Eosinophils/100 WBC (Bld) 2.2 % Normal 0-5 [facility] Comment on above: Performed By: #### L 500.4050, L501.2450, L100.0100 ####[facility] [address] [place], [address] Erythrocyte distribution width (RBC) [Ratio] 13.6 % Normal 11.6-14.6 [facility] Comment on above: Performed By: #### L 500.4050, L501.2450, L100.0100 ####[facility] [address] [place], [address] Hematocrit (Bld) [Volume fraction] 40.5 % Normal 37-47 [facility] Comment on above: Performed By: #### L 500.4050, L501.2450, L100.0100 ####[facility] [address] [place], [address] Hemoglobin (Bld) [Mass/Vol] 13.2 g/dL Normal 12.0-15.0 [facility] Comment on above: Performed By: #### L 500.4050, L501.2450, L100.0100 ####[facility] [address] [place], [address] IG% 0.300 Normal 0.0-0.9 [facility] Comment on above: Result Comment: IG% - Immature Granulocytes (promyelocytes, myelocytes andmetamyelocytes) > 1% indicates that a LEFT SHIFT is Present. Performed By: #### L 500.4050, L501.2450, L100.0100 ####[facility] [address] [place], [address] Lymphocytes/100 WBC (Bld) 17.9 % Low 19-41 [facility] Comment on above: Performed By: #### L 500.4050, L501.2450, L100.0100 ####[facility] [address] [place], [address] MCH (RBC) [Entitic mass] 29.7 pg Normal 27.0-32.0 [facility] Comment on above: Performed By: #### L 500.4050, L501.2450, L100.0100 ####[facility] [address] [place], [address] MCHC (RBC) [Mass/Vol] 32.6 g/dL Normal 32-36 [facility] Comment on above: Performed By: #### L 500.4050, L501.2450, L100.0100 ####[facility] [address] [place], [address] MCV (RBC) [Entitic vol] 91.2 fL Normal 81-99 [facility] Comment on above: Performed By: #### L 500.4050, L501.2450, L100.0100 ####[facility] [address] [place], [address] Monocytes/100 WBC (Bld) 4.8 % Normal 0-10 [facility] Comment on above: Performed By: #### L 500.4050, L501.2450, L100.0100 ####[facility] [address] [place], [address] Neutrophils/100 WBC (Bld) 74.0 % High 47-70 [facility] Comment on above: Performed By: #### L 500.4050, L501.2450, L100.0100 ####[facility] [address] [place], [address] Nucleated RBC (Bld) [#/Vol] 0 10*3/uL Normal 0-5 [facility] Comment on above: Performed By: #### L 500.4050, L501.2450, L100.0100 ####[facility] [address] [place], [address] Platelet mean volume (Bld) [Entitic vol] 9.4 fL Normal 6.2-12.0 [facility] Comment on above: Performed By: #### L 500.4050, L501.2450, L100.0100 ####[facility] [address] [place], [address] Platelets (Bld) [#/Vol] 293 10*3/uL Normal 150-450 [facility] Comment on above: Performed By: #### L 500.4050, L501.2450, L100.0100 ####[facility] [address] [place], [address] RBC (Bld) [#/Vol] 4.44 10*6/uL Normal 4.2-5.4 [facility] Comment on above: Performed By: #### L 500.4050, L501.2450, L100.0100 ####[facility] [address] [place], [address] [place] [place] 45.9 fl High 35.1-43.9 [facility] Comment on above: Performed By: #### L 500.4050, L501.2450, L100.0100 ####[facility] [address] [place], [address] WBC (Bld) [#/Vol] 6.3 10*3/uL Normal 4.4-11.0 [facility] Comment on above: Performed By: #### L 500.4050, L501.2450, L100.0100 ####[facility] [address] [place], [address] Carbon dioxide, total [Moles /volume] in Central venous bloodOrdered By: Ankit Marsh on 10-23-2024 CO2 [Moles/Vol] 16.5 mmol/L Low 21.0-32.0 [facility] Chloride assayOrdered By: Omayra Marsh on 10-23-2024 Chloride [Moles/Vol] 108 mmol/L 98-108 [facility] Comprehensive Metabolic Prof ilon 10-23-2024 Albumin [Mass/Vol] 4.1 g/dL Normal 3.4-4.8 [facility] Comment on above: Performed By: #### L 500.4050, L501.2450, L100.0100 ####[facility] [address] [place], [address] Albumin/Globulin [Mass ratio] 1.2 {ratio} Normal 0.9-2.4 [facility] Comment on above: Performed By: #### L 500.4050, L501.2450, L100.0100 ####[facility] [address] [place], [address] ALK PHOS 100 U/L Normal 35-104 [facility] Comment on above: Performed By: #### L 500.4050, L501.2450, L100.0100 ####[facility] [address] [place], [address] ALT [Catalytic activity/Vol] 8 U/L Normal <=34 [facility] Comment on above: Performed By: #### L 500.4050, L501.2450, L100.0100 ####[facility] [address] [place], [address] AST [Catalytic activity/Vol] 23 U/L Normal <=31 [facility] Comment on above: Result Comment: Hemo lysis present, Results??could be affected.?? Performed By: #### L 500.4050, L501.2450, L100.0100 ####[facility] [address] [place], [address] Bilirubin [Mass/Vol] 0.25 mg/dL Normal 0.00-1.30 [facility] Comment on above: Performed By: #### L 500.4050, L501.2450, L100.0100 ####[facility] [address] [place], [address] BUN/CRE 29.3 RATIO High 10-20 [facility] Comment on above: Performed By: #### L 500.4050, L501.2450, L100.0100 ####[facility] [address] [place], [address] Calcium [Mass/Vol] 9.4 mg/dL Normal 7.6-11.0 [facility] Comment on above: Performed By: #### L 500.4050, L501.2450, L100.0100 ####[facility] [address] [place], [address] Chloride [Moles/Vol] 108 mmol/L Normal 98-108 [facility] Comment on above: Performed By: #### L 500.4050, L501.2450, L100.0100 ####[facility] [address] [place], [address] CO2 [Moles/Vol] 16.5 mmol/L Low 21.0-32.0 [facility] Comment on above: Performed By: #### L 500.4050, L501.2450, L100.0100 ####[facility] [address] [place], [address] Creatinine [Mass/Vol] 0.65 mg/dL Low 0.70-1.20 [facility] Comment on above: Performed By: #### L 500.4050, L501.2450, L100.0100 ####[facility] [address] [place], [address] GAP 14 Normal 5-15 [facility] Comment on above: Performed By: #### L 500.4050, L501.2450, L100.0100 ####[facility] [address] [place], [address] GFR/1.73 sq M.predicted among non-blacks MDRD (S/P/Bld) [Vol rate/Area] 98 mL/min/{1.73_m2} Normal >60 [facility] Comment on above: Result Comment: mL/m in/1.73m2 CKD-EPI Creatinine Equation (2020) Performed By: #### L 500.4050, L501.2450, L100.0100 ####[facility] [address] [place], [address] Globulin (S) [Mass/Vol] 3.6 g/dL Normal 2.2-4.2 [facility] Comment on above: Performed By: #### L 500.4050, L501.2450, L100.0100 ####[facility] [address] [place], [address] Glucose [Mass/Vol] 139 mg/dL High 70-99 [facility] Comment on above: Performed By: #### L 500.4050, L501.2450, L100.0100 ####[facility] [address] [place], [address] Potassium [Moles/Vol] 3.7 mmol/L Normal 3.3-5.1 [facility] Comment on above: Result Comment: Hemo lysis present, Results??could be affected.?? Performed By: #### L 500.4050, L501.2450, L100.0100 ####[facility] [address] [place], [address] Sodium [Moles/Vol] 138 mmol/L Normal 133-145 [facility] Comment on above: Performed By: #### L 500.4050, L501.2450, L100.0100 ####[facility] [address] [place], [address] T PROT 7.7 g/dL Normal 5.9-8.4 [facility] Comment on above: Performed By: #### L 500.4050, L501.2450, L100.0100 ####[facility] [address] [place], [address] Urea nitrogen [Mass/Vol] 19 mg/dL Normal 4-19 [facility] Comment on above: Performed By: #### L 500.4050, L501.2450, L100.0100 ####[facility] [address] [place], [address] Emergency Department Summary on 10-23-2024 Emergency Department Summary Normal [facility] Eosinophil percentageOrdered By: Ankit Marsh on 10-23-2024 Eosinophils/100 WBC (Bld) 2.2 % 0-5 [facility] Erythrocyte distribution wid th ratioOrdered By: Ankit Marsh on 10-23-2024 Erythrocyte distribution width (RBC) [Ratio] 13.6 % 11.6-14.6 [facility] Erythrocyte distribution wid th standard deviationOrdered By: Aknit Marsh on 10-23-2024 Erythrocyte distribution width (RBC) [Ratio] 45.9 fl High 35.1-43.9 [facility] Glomerular filtration rate ( GFR) estimation/1.73 sq m using serum, plasma, or whole bOrdered By: Ankit Marsh on 10-23-2024 GFR/1.73 sq M.predicted among non-blacks MDRD (S/P/Bld) [Vol rate/Area] 98 mL/min/{1.73_m2} >60 [facility] Comment on above: mL/min/1.73m2 CKD-EP I Creatinine Equation (2020) Hematocrit Auto (Bld) [Volum e fraction]Ordered By: Ankit Marsh on 10-23-2024 Hematocrit (Bld) [Volume fraction] 40.5 % 37-47 [facility] Hemoglobin measurementOrdere d By: Ankit Marsh on 10-23-2024 Hemoglobin (Bld) [Mass/Vol] 13.2 g/dL 12.0-15.0 [facility] Immature granulocytes/100 WB C Auto (Bld)Ordered By: Ankit Marsh on 10-23-2024 Immature granulocytes/100 WBC (Bld) 0.300 % 0.0-0.9 [facility] Comment on above: IG% - Immature Granu locytes (promyelocytes, myelocytes and metamyelocytes) > 1% indicates that a LEFT SHIFT is Present. Laboratory - Chemistry and C hemistry - challengeOrdered By: Ankit Marsh on 10-23-2024 AST [Catalytic activity/Vol] 23 U/L <32 [facility] Comment on above: Hemolysis present, R esults could be affected. Lipaseon 10-23-2024 Lipase [Catalytic activity/Vol] 27 U/L Normal 13-75 [facility] Comment on above: Result Comment: Efrem caldwell note:LIPASE revised reference range effective 22.New Lipase methodology. Expected to produce lower valuesthan the previous assay method.NEW Reference Range: 13 - 75 U/L Performed By: #### L 500.4050, L501.2450, L100.0100 ####[facility] [address] [place], [address] Lipase measurementOrdered By : Ankit Marsh on 10-23-2024 Lipase [Catalytic activity/Vol] 27 U/L 13-75 [facility] Comment on above: Please note:LIPASE r evised reference range effective 22. New Lipase methodology. Expected to produce lower values than the previous assay method. NEW Reference Range: 13 - 75 U/L MCV (mean corpuscular volume ) determinationOrdered By: Ankit Marsh on 10-23-2024 MCV (RBC) [Entitic vol] 91.2 fL 81-99 [facility] Mean corpuscular hemoglobin (MCH) determinationOrdered By: Ankit Marsh on 10-23-2024 MCH (RBC) [Entitic mass] 29.7 pg 27.0-32.0 [facility] Mean corpuscular hemoglobin concentration (MCHC) determinationOrdered By: Ankit Marsh on 10-23-2024 MCHC (RBC) [Mass/Vol] 32.6 g/dL 32-36 [facility] Mean platelet volume determi nationOrdered By: Ankit Marsh on 10-23-2024 Platelet mean volume (Bld) [Entitic vol] 9.4 fL 6.2-12.0 [facility] Monocyte percentageOrdered B y: Ankit Marsh on 10-23-2024 Monocytes/100 WBC (Bld) 4.8 % 0-10 [facility] Neutrophil percentageOrdered By: Ankit Marsh on 10-23-2024 Neutrophils/100 WBC (Bld) 74.0 % High 47-70 [facility] No Panel InformationOrdered By: Ankit Marsh on 10-23-2024 23 U/L <32 [facility] Nucleated red blood cell per centageOrdered By: Ankit Marsh on 10-23-2024 Nucleated RBC/100 WBC (Bld) [Ratio] 0 % 0-5 [facility] Platelet countOrdered By: Omayra Marsh on 10-23-2024 Platelets (Bld) [#/Vol] 293 10*3/uL 150-450 [facility] Potassium measurement (mass/ volume)Ordered By: Ankit Marsh on 10-23-2024 Potassium (Unsp spec) [Mass/Vol] 3.7 mmol/L 3.3-5.1 [facility] Comment on above: Hemolysis present, R esults could be affected. RBC Auto (Bld) [#/Vol]Ordere d By: Ankit Marsh on 10-23-2024 RBC (Bld) [#/Vol] 4.44 10*6/uL 4.2-5.4 [facility] Serum creatinine measurement (mass/volume)Ordered By: Ankit Marsh on 10-23-2024 Creatinine [Mass/Vol] 0.65 mg/dL Low 0.70-1.20 [facility] Serum globulin measurementOr dered By: Ankit Marsh on 10-23-2024 Globulin (S) [Mass/Vol] 3.6 g/dL 2.2-4.2 [facility] Serum glucose measurement (m ass/volume)Ordered By: Ankit Marsh on 10-23-2024 Glucose [Mass/Vol] 139 mg/dL High 70-99 [facility] Serum or plasma alanine ramirez otransferase (ALT) measurementOrdered By: Ankit Marsh on 10-23-2024 ALT [Catalytic activity/Vol] 8 U/L <35 [facility] Serum or plasma albumin renetta urement (mass/volume)Ordered By: Ankit Marsh on 10-23-2024 Albumin [Mass/Vol] 4.1 g/dL 3.4-4.8 [facility] Serum or plasma albumin/glob ulin mass ratioOrdered By: Ankit Marsh on 10-23-2024 Albumin/Globulin [Mass ratio] 1.2 {ratio} 0.9-2.4 [facility] Serum or plasma alkaline marquez sphatase measurementOrdered By: Ankit Marsh on 10-23-2024 ALP [Catalytic activity/Vol] 100 U/L 35-104 [facility] Serum or plasma calcium renetta urement (mass/volume)Ordered By: Ankit Marsh on 10-23-2024 Calcium [Mass/Vol] 9.4 mg/dL 7.6-11.0 [facility] Serum or plasma urea nitroge n measurement (mass/volume)Ordered By: Ankit aMrsh on 10-23-2024 Urea nitrogen [Mass/Vol] 19 mg/dL 4-19 [facility] Sodium levelOrdered By: Ankit Marsh on 10-23-2024 Sodium [Moles/Vol] 138 mmol/L 133-145 [facility] Total proteinOrdered By: Clinton Marsh on 10-23-2024 Protein [Mass/Vol] 7.7 g/dL 5.9-8.4 [facility] White blood cell (WBC) count Ordered By: Ankit Marsh on 10-23-2024 WBC (Bld) [#/Vol] 6.3 10*3/uL 4.4-11.0 [facility] BRIEF OP NOTon 10-21-2024 BRIEF OP NOT HNO ID: [id number] Author: ROMELIA GARY MD Service: Interventional Radiology [...] note. ATTENDING RADIOLOGIST: Interventional: Dr. 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 HISTORY PHYSICALon HISTORY PHYSICAL HNO ID: [id number] Author: ROMELIA GARY MD Service: Interventional Radiology [...] DATE: October 21, 2024 TIME: 10:[address] [facility] IR FLUOR GUID VASC ACCESSon 10-21-2024 IR FLUOR GUID VASC ACCESS * * *Final Report* * * DATE OF EXAM: Oct 21 2024 12:23PM [facility] [id number] - IR FLUOR GUID VASC [...] performed by the: attending radiologist, without an orthotic assistant. The attending radiologist performed the following procedural activities: Entire procedure IMPRESSION: INSERTION OF RIGHT-SIDED POWER-INJECTABLE SINGLE-LUMEN TUNNELED CHEST PORT, WITH CATHETER TIP IN THE EXPECTED LOCATION OF THE RIGHT ATRIUM. PLAN: THE PORT IS READY FOR USE. RECOMMENDED FLUSH PER [facility] POLICY. ATTESTATION: Signer name: Tino (more content not included)... [facility] IR US GUIDE VASC ACCESSon IR US GUIDE VASC ACCESS * * *Final Report* * * DATE OF EXAM: Oct 21 2024 12:23PM [id number] - IR US GUIDE VASC ACCESS [...] performed by the: attending radiologist, without an orthotic assistant. The attending radiologist performed the following procedural activities: Entire procedure IMPRESSION: INSERTION OF RIGHT-SIDED POWER-INJECTABLE SINGLE-LUMEN TUNNELED CHEST PORT, WITH CATHETER TIP IN THE EXPECTED LOCATION OF THE RIGHT ATRIUM. PLAN: THE PORT IS READY FOR USE. RECOMMENDED FLUSH PER [facility] POLICY. ATTESTATION: Signer name: Romelia (more content not included)... [facility] 10-15-2024 [facility] 10-14-2024 [facility] 10-11-2024 [facility] CNOVSPon 10-10-2024 CNOVSP Normal [facility] Basic Metabolic Profile (BMP )on 10-03-2024 BUN Normal -19 [facility] Comment on above: Result Comment: Canc elled via OM: Order cancelled - Patient discharged Performed By: #### L 100.0100, L500.2500 ####[facility] [address] [place], [address] BUN/CRE Normal 10-20 [facility] Comment on above: Result Comment: Canc elled via OM: Order cancelled - Patient discharged Performed By: #### L 100.0100, L500.2500 ####[facility] [address] [place], [address] Calcium Normal 7.6-11.0 [facility] Comment on above: Result Comment: Canc elled via OM: Order cancelled - Patient discharged Performed By: #### L 100.0100, L500.2500 ####[facility] [address] [place], [address] CL Normal 98-108 [facility] Comment on above: Result Comment: Canc elled via OM: Order cancelled - Patient discharged Performed By: #### L 100.0100, L500.2500 ####[facility] [address] [place], [address] CO2 Normal 21.0-32.0 [facility] Comment on above: Result Comment: Canc elled via OM: Order cancelled - Patient discharged Performed By: #### L 100.0100, L500.2500 ####[facility] [address] [place], [address] CREAT,SERUM Normal 0.70-1.20 [facility] Comment on above: Result Comment: Canc elled via OM: Order cancelled - Patient discharged Performed By: #### L 100.0100, L500.2500 ####[facility] [address] [place], [address] eGFR Normal >60 [facility] Comment on above: Result Comment: Canc elled via OM: Order cancelled - Patient discharged Performed By: #### L 100.0100, L500.2500 ####[facility] [address] [place], [address] GAP Normal 5-15 [facility] Comment on above: Result Comment: Canc elled via OM: Order cancelled - Patient discharged Performed By: #### L 100.0100, L500.2500 ####[facility] [address] [place], [address] GLU Normal 70-99 [facility] Comment on above: Result Comment: Canc elled via OM: Order cancelled - Patient discharged Performed By: #### L 100.0100, L500.2500 ####[facility] [address] [place], [address] Potassium Normal 3.3-5.1 [facility] Comment on above: Result Comment: Canc elled via OM: Order cancelled - Patient discharged Performed By: #### L 100.0100, L500.2500 ####[facility] [address] [place], [address] Basic Metabolic Profile (BMP) Normal 133-145 [facility] Comment on above: Result Comment: Canc elled via OM: Order cancelled - Patient discharged Performed By: #### L 100.0100, L500.2500 ####[facility] [address] [place], [address] CBC W/Diff, Automatedon 07-1 0-2024 Absolute Neut Normal 2.0-7.7 [facility] Comment on above: Result Comment: Canc elled via OM: Order cancelled - Patient discharged Performed By: #### L 100.0100, L500.2500 ####[facility] [address] [place], [address] HCT Normal 37-47 [facility] Comment on above: Result Comment: Canc elled via OM: Order cancelled - Patient discharged Performed By: #### L 100.0100, L500.2500 ####[facility] [address] [place], [address] HGB Normal 12.0-15.0 [facility] Comment on above: Result Comment: Canc elled via OM: Order cancelled - Patient discharged Performed By: #### L 100.0100, L500.2500 ####[facility] [address] [place], [address] MCH Normal 27.0-32.0 [facility] Comment on above: Result Comment: Canc elled via OM: Order cancelled - Patient discharged Performed By: #### L 100.0100, L500.2500 ####[facility] [address] [place], [address] MCHC Normal 32-36 [facility] Comment on above: Result Comment: Canc elled via OM: Order cancelled - Patient discharged Performed By: #### L 100.0100, L500.2500 ####[facility] [address] [place], [address] MCV Normal 81-99 [facility] Comment on above: Result Comment: Canc elled via OM: Order cancelled - Patient discharged Performed By: #### L 100.0100, L500.2500 ####[facility] [address] [place], [address] NEUT% Normal 47-70 [facility] Comment on above: Result Comment: Canc elled via OM: Order cancelled - Patient discharged Performed By: #### L 100.0100, L500.2500 ####[facility] [address] [place], [address] PLT Normal 150-450 [facility] Comment on above: Result Comment: Canc elled via OM: Order cancelled - Patient discharged Performed By: #### L 100.0100, L500.2500 ####[facility] [address] [place], [address] RBC Normal 4.2-5.4 [facility] Comment on above: Result Comment: Canc elled via OM: Order cancelled - Patient discharged Performed By: #### L 100.0100, L500.2500 ####[facility] [address] [place], [address] RDW CV Normal 11.6-14.6 [facility] Comment on above: Result Comment: Canc elled via OM: Order cancelled - Patient discharged Performed By: #### L 100.0100, L500.2500 ####[facility] [address] [place], [address] RDW SD Normal 35.1-43.9 [facility] Comment on above: Result Comment: Canc elled via OM: Order cancelled - Patient discharged Performed By: #### L 100.0100, L500.2500 ####[facility] [address] [place], [address] WBC Normal 4.4-11.0 [facility] Comment on above: Result Comment: Canc elled via OM: Order cancelled - Patient discharged Performed By: #### L 100.0100, L500.2500 ####[facility] [address] [place], [address] CNPNon 10-02-2024 CNPN Normal [facility] Basic Metabolic Profile (BMP )on 09-26-2024 BUN Normal 4-19 [facility] Comment on above: Result Comment: Canc elled via OM: Order cancelled - Patient discharged Performed By: #### L 100.0100, L500.2500 ####[facility] [address] [place], [address] BUN/CRE Normal 10-20 [facility] Comment on above: Result Comment: Canc elled via OM: Order cancelled - Patient discharged Performed By: #### L 100.0100, L500.2500 ####[facility] [address] [place], [address] Calcium Normal 7.6-11.0 [facility] Comment on above: Result Comment: Canc elled via OM: Order cancelled - Patient discharged Performed By: #### L 100.0100, L500.2500 ####[facility] [address] [place], [address] CL Normal 98-108 [facility] Comment on above: Result Comment: Canc elled via OM: Order cancelled - Patient discharged Performed By: #### L 100.0100, L500.2500 ####[facility] [address] [place], [address] CO2 Normal 21.0-32.0 [facility] Comment on above: Result Comment: Canc elled via OM: Order cancelled - Patient discharged Performed By: #### L 100.0100, L500.2500 ####[facility] [address] [place], [address] CREAT,SERUM Normal 0.70-1.20 [facility] Comment on above: Result Comment: Canc elled via OM: Order cancelled - Patient discharged Performed By: #### L 100.0100, L500.2500 ####[facility] [address] [place], [address] eGFR Normal >60 [facility] Comment on above: Result Comment: Canc elled via OM: Order cancelled - Patient discharged Performed By: #### L 100.0100, L500.2500 ####[facility] [address] [place], [address] GAP Normal 5-15 [facility] Comment on above: Result Comment: Canc elled via OM: Order cancelled - Patient discharged Performed By: #### L 100.0100, L500.2500 ####[facility] [address] [place], [address] GLU Normal 70-99 [facility] Comment on above: Result Comment: Canc elled via OM: Order cancelled - Patient discharged Performed By: #### L 100.0100, L500.2500 ####[facility] [address] [place], [address] Potassium Normal 3.3-5.1 [facility] Comment on above: Result Comment: Canc elled via OM: Order cancelled - Patient discharged Performed By: #### L 100.0100, L500.2500 ####[facility] [address] [place], [address] Basic Metabolic Profile (BMP) Normal 133-145 [facility] Comment on above: Result Comment: Canc elled via OM: Order cancelled - Patient discharged Performed By: #### L 100.0100, L500.2500 ####[facility] [address] [place], [address] CBC W/Diff, Automatedon 07-0 -2024 Absolute Neut Normal 2.0-7.7 [facility] Comment on above: Result Comment: Canc elled via OM: Order cancelled - Patient discharged Performed By: #### L 100.0100, L500.2500 ####[facility] [address] [place], [address] HCT Normal 37-47 [facility] Comment on above: Result Comment: Canc elled via OM: Order cancelled - Patient discharged Performed By: #### L 100.0100, L500.2500 ####[facility] [address] [place], [address] HGB Normal 12.0-15.0 [facility] Comment on above: Result Comment: Canc elled via OM: Order cancelled - Patient discharged Performed By: #### L 100.0100, L500.2500 ####[facility] [address] [place], [address] MCH Normal 27.0-32.0 [facility] [facility] Comment on above: Result Comment: Canc elled via OM: Order cancelled - Patient discharged Performed By: #### L 100.0100, L500.2500 ####[facility] [address] [place], [address] MCHC Normal 32-36 [facility] Comment on above: Result Comment: Canc elled via OM: Order cancelled - Patient discharged Performed By: #### L 100.0100, L500.2500 ####[facility] [address] [place], [address] MCV Normal 81-99 [facility] Comment on above: Result Comment: Canc elled via OM: Order cancelled - Patient discharged Performed By: #### L 100.0100, L500.2500 ####[facility] [address] [place], [address] NEUT% Normal 47-70 [facility] Comment on above: Result Comment: Canc elled via OM: Order cancelled - Patient discharged Performed By: #### L 100.0100, L500.2500 ####[facility] [address] [place], [address] PLT Normal 150-450 [facility] Comment on above: Result Comment: Canc elled via OM: Order cancelled - Patient discharged Performed By: #### L 100.0100, L500.2500 ####[facility] [address] [place], [address] RBC Normal 4.2-5.4 [facility] Comment on above: Result Comment: Canc elled via OM: Order cancelled - Patient discharged Performed By: #### L 100.0100, L500.2500 ####[facility] [address] [place], [address] RDW CV Normal 11.6-14.6 [facility] Comment on above: Result Comment: Canc elled via OM: Order cancelled - Patient discharged Performed By: #### L 100.0100, L500.2500 ####[facility] [address] [place], [address] RDW SD Normal 35.1-43.9 [facility] Comment on above: Result Comment: Canc elled via OM: Order cancelled - Patient discharged Performed By: #### L 100.0100, L500.2500 ####[facility] [address] [place], [address] WBC Normal 4.4-11.0 [facility] Comment on above: Result Comment: Canc elled via OM: Order cancelled - Patient discharged Performed By: #### L 100.0100, L500.2500 ####[facility] [address] [place], [address] CNOVSPon 09-25-2024 CNOVSP Normal [facility] CNPNon 09-25-2024 CNPN Normal [facility] REFERRAL FOR ADDITIONAL BIOM ARKER AND MOLECULAR TESTINGon 09-25-2024 REFERRAL FOR ADDITIONAL BIOMARKER AND MOLECULAR TESTING Normal [facility] Comment on above: Order Comment: Speci men Type: TISSUE SPECIMENOrdering Facility: [facility] Address: [address] [place] [address] Result Comment: Requ est has been received for evaluation and the results will be issued separately. Performed By: #### A PMOL ####[facility] [id number] [place] [address] [place] Inital Evaluation (1) - PTon 09-23-2024 Inital Evaluation (1) - PT Normal [facility] Basic Metabolic Profile (BMP )on 09-19-2024 BUN Normal 4-19 [facility] Comment on above: Result Comment: Canc elled via OM: Order cancelled - Patient discharged Performed By: #### L 500.2500, L100.0100 ####[facility] [address] [place], [address] BUN/CRE Normal 10-20 [facility] Comment on above: Result Comment: Canc elled via OM: Order cancelled - Patient discharged Performed By: #### L 500.2500, L100.0100 ####[facility] [address] [place], [address] Calcium Normal 7.6-11.0 [facility] Comment on above: Result Comment: Canc elled via OM: Order cancelled - Patient discharged Performed By: #### L 500.2500, L100.0100 ####[facility] [address] [place], [address] CL Normal 98-108 [facility] Comment on above: Result Comment: Canc elled via OM: Order cancelled - Patient discharged Performed By: #### L 500.2500, L100.0100 ####[facility] [address] [place], [address] CO2 Normal 21.0-32.0 [facility] Comment on above: Result Comment: Canc elled via OM: Order cancelled - Patient discharged Performed By: #### L 500.2500, L100.0100 ####[facility] [address] [place], [address] CREAT,SERUM Normal 0.70-1.20 [facility] Comment on above: Result Comment: Canc elled via OM: Order cancelled - Patient discharged Performed By: #### L 500.2500, L100.0100 ####[facility] [address] [place], [address] eGFR Normal >60 [facility] Comment on above: Result Comment: Canc elled via OM: Order cancelled - Patient discharged Performed By: #### L 500.2500, L100.0100 ####[facility] [address] [place], [address] GAP Normal 5-15 [facility] Comment on above: Result Comment: Canc elled via OM: Order cancelled - Patient discharged Performed By: #### L 500.2500, L100.0100 ####[facility] [address] [place], [address] GLU Normal 70-99 [facility] Comment on above: Result Comment: Canc elled via OM: Order cancelled - Patient discharged Performed By: #### L 500.2500, L100.0100 ####[facility] [address] [place], [address] Potassium Normal 3.3-5.1 [facility] Comment on above: Result Comment: Canc elled via OM: Order cancelled - Patient discharged Performed By: #### L 500.2500, L100.0100 ####[facility] [address] [place], [address] Basic Metabolic Profile (BMP) Normal 133-145 [facility] Comment on above: Result Comment: Canc elled via OM: Order cancelled - Patient discharged Performed By: #### L 500.2500, L100.0100 ####[facility] [address] [place], [address] CBC W/Diff, Automatedon 06-2 Absolute Neut Normal 2.0-7.7 [facility] Comment on above: Result Comment: Canc elled via OM: Order cancelled - Patient discharged Performed By: #### L 500.2500, L100.0100 ####[facility] [address] [place], [address] HCT Normal 37-47 [facility] Comment on above: Result Comment: Canc elled via OM: Order cancelled - Patient discharged Performed By: #### L 500.2500, L100.0100 ####[facility] [address] [place], [address] HGB Normal 12.0-15.0 [facility] Comment on above: Result Comment: Canc elled via OM: Order cancelled - Patient discharged Performed By: #### L 500.2500, L100.0100 ####[facility] [address] [place], [address] MCH Normal 27.0-32.0 [facility] Comment on above: Result Comment: Canc elled via OM: Order cancelled - Patient discharged Performed By: #### L 500.2500, L100.0100 ####[facility] [address] [place], [address] MCHC Normal 32-36 [facility] Comment on above: Result Comment: Canc elled via OM: Order cancelled - Patient discharged Performed By: #### L 500.2500, L100.0100 ####[facility] [address] [place], [address] MCV Normal 81-99 [facility] Comment on above: Result Comment: Canc elled via OM: Order cancelled - Patient discharged Performed By: #### L 500.2500, L100.0100 ####[facility] [address] [place], [address] NEUT% Normal 47-70 [facility] Comment on above: Result Comment: Canc elled via OM: Order cancelled - Patient discharged Performed By: #### L 500.2500, L100.0100 ####[facility] [address] [place], [address] PLT Normal 150-450 [facility] Comment on above: Result Comment: Canc elled via OM: Order cancelled - Patient discharged Performed By: #### L 500.2500, L100.0100 ####[facility] [address] [place], [address] RBC Normal 4.2-5.4 [facility] Comment on above: Result Comment: Canc elled via OM: Order cancelled - Patient discharged Performed By: #### L 500.2500, L100.0100 ####[facility] [address] [place], [address] RDW CV Normal 11.6-14.6 [facility] Comment on above: Result Comment: Canc elled via OM: Order cancelled - Patient discharged Performed By: #### L 500.2500, L100.0100 ####[facility] [address] [place], [address] RDW SD Normal 35.1-43.9 [facility] Comment on above: Result Comment: Canc elled via OM: Order cancelled - Patient discharged Performed By: #### L 500.2500, L100.0100 ####[facility] [address] [place], [address] WBC Normal 4.4-11.0 [facility] Comment on above: Result Comment: Canc elled via OM: Order cancelled - Patient discharged Performed By: #### L 500.2500, L100.0100 ####[facility] [address] [place], [address] CNOVon 09-16-2024 CNOV Normal [facility] Abdomen/Pelvis WITH Contrast on 09-13-2024 Abdomen/Pelvis WITH Contrast Normal [facility] CNPNon 09-13-2024 CNPN Normal [facility] Absolute lymphocyte countOrd ered By: Qamar Smith on 09-12-2024 Lymphocytes Auto (Unsp spec) [#/Vol] 2.30 10*3/uL 0.83-4.51 [facility] Absolute neutrophil countOrd ered By: Qamar Smith on 09-12-2024 Neutrophils (Bld) [#/Vol] 9.6 10*3/uL High 2.0-7.7 [facility] Anion gap in Serum or Plasma Ordered By: Qamar Smith on 09-12-2024 Anion gap [Moles/Vol] 12 mmol/L 5-15 [facility] Automated lymphocyte count a s percentage of total leukocytesOrdered By: Qamar Smith on 09-12-2024 Lymphocytes/100 WBC Auto (Unsp spec) 17.0 % Low 19-41 [facility] BUN/creatinine ratioOrdered By: Qamar Smith on 09-12-2024 Urea nitrogen/Creatinine [Mass ratio] 45.8 mg/mg High 10- [facility] Basic Metabolic Profile (BMP )on 09-12-2024 BUN/CRE 45.8 RATIO High 10- [facility] Comment on above: Performed By: #### L 500.2500, L100.0100 ####[facility] [address] [place], [address] Calcium [Mass/Vol] 8.9 mg/dL Normal 7.6-11.0 [facility] Comment on above: Performed By: #### L 500.2500, L100.0100 ####[facility] [address] [place], [address] Chloride [Moles/Vol] 99 mmol/L Normal 98-108 [facility] Comment on above: Performed By: #### L 500.2500, L100.0100 ####[facility] [address] [place], [address] CO2 [Moles/Vol] 27.6 mmol/L Normal 21.0-32.0 [facility] Comment on above: Performed By: #### L 500.2500, L100.0100 ####[facility] [address] [place], [address] Creatinine [Mass/Vol] 0.66 mg/dL Low 0.70-1.20 [facility] Comment on above: Performed By: #### L 500.2500, L100.0100 ####[facility] [address] [place], [address] ECRCL 44.28 ml/min Low 50-250 [facility] Comment on above: Performed By: #### L 500.2500, L100.0100 ####[facility] [address] [place], [address] GAP 12 Normal 5-15 [facility] Comment on above: Performed By: #### L 500.2500, L100.0100 ####[facility] [address] [place], [address] GFR/1.73 sq M.predicted among non-blacks MDRD (S/P/Bld) [Vol rate/Area] 97 mL/min/{1.73_m2} Normal >60 [facility] Comment on above: Result Comment: mL/m in/1.73m2 CKD-EPI Creatinine Equation (2020) Performed By: #### L 500.2500, L100.0100 ####[facility] [address] [place], [address] Glucose [Mass/Vol] 127 mg/dL High 70-99 [facility] Comment on above: Performed By: #### L 500.2500, L100.0100 ####[facility] [address] [place], [address] Potassium [Moles/Vol] 3.9 mmol/L Normal 3.3-5.1 [facility] Comment on above: Performed By: #### L 500.2500, L100.0100 ####[facility] [address] [place], [address] Sodium [Moles/Vol] 139 mmol/L Normal 133-145 [facility] Comment on above: Performed By: #### L 500.2500, L100.0100 ####[facility] [address] [place], [address] Urea nitrogen [Mass/Vol] 30 mg/dL High 4-19 [facility] Comment on above: Performed By: #### L 500.2500, L100.0100 ####[facility] [address] [place], [address] Basophil percentageOrdered B y: Qamar Smith on 09-12-2024 Basophils/100 WBC (Bld) 1.0 % 0-1 [facility] CBC W/Diff, Automatedon 08-25 Absolute Lymph 2.30 X10 3/uL Normal 0.83-4.51 [facility] Comment on above: Performed By: #### L 500.2500, L100.0100 ####[facility] [address] [place], [address] Absolute Neut 9.6 X10 3/uL High 2.0-7.7 [facility] Comment on above: Performed By: #### L 500.2500, L100.0100 ####[facility] [address] [place], [address] Basophils/100 WBC (Bld) 1.0 % Normal 0-1 [facility] Comment on above: Performed By: #### L 500.2500, L100.0100 ####[facility] [address] [place], [address] Eosinophils/100 WBC (Bld) 3.4 % Normal 0-5 [facility] Comment on above: Performed By: #### L 500.2500, L100.0100 ####[facility] [address] [place], [address] Erythrocyte distribution width (RBC) [Ratio] 13.9 % Normal 11.6-14.6 [facility] Comment on above: Performed By: #### L 500.2500, L100.0100 ####[facility] [address] [place], [address] Hematocrit (Bld) [Volume fraction] 38.1 % Normal 37-47 [facility] Comment on above: Performed By: #### L 500.2500, L100.0100 ####[facility] [address] [place], [address] Hemoglobin (Bld) [Mass/Vol] 12.8 g/dL Normal 12.0-15.0 [facility] Comment on above: Performed By: #### L 500.2500, L100.0100 ####[facility] [address] [place], [address] IG% 0.300 Normal 0.0-0.9 [facility] Comment on above: Result Comment: IG% - Immature Granulocytes (promyelocytes, myelocytes andmetamyelocytes) > 1% indicates that a LEFT SHIFT is Present. Performed By: #### L 500.2500, L100.0100 ####[facility] [address] [place], [address] Lymphocytes/100 WBC (Bld) 17.0 % Low 19-41 [facility] Comment on above: Performed By: #### L 500.2500, L100.0100 ####[facility] [address] [place], [address] MCH (RBC) [Entitic mass] 31.6 pg Normal 27.0-32.0 [facility] Comment on above: Performed By: #### L 500.2500, L100.0100 ####[facility] [address] [place], [address] MCHC (RBC) [Mass/Vol] 33.6 g/dL Normal 32-36 [facility] Comment on above: Performed By: #### L 500.2500, L100.0100 ####[facility] [address] [place], [address] MCV (RBC) [Entitic vol] 94.1 fL Normal 81-99 [facility] Comment on above: Performed By: #### L 500.2500, L100.0100 ####[facility] [address] [place], [address] Monocytes/100 WBC (Bld) 7.2 % Normal 0-10 [facility] Comment on above: Performed By: #### L 500.2500, L100.0100 ####[facility] [address] [place], [address] Neutrophils/100 WBC (Bld) 71.1 % High 47-70 [facility] Comment on above: Performed By: #### L 500.2500, L100.0100 ####[facility] [address] [place], [address] Nucleated RBC (Bld) [#/Vol] 0 10*3/uL Normal 0-5 [facility] Comment on above: Performed By: #### L 500.2500, L100.0100 ####[facility] [address] [place], [address] Platelet mean volume (Bld) [Entitic vol] 9.4 fL Normal 6.2-12.0 [facility] Comment on above: Performed By: #### L 500.2500, L100.0100 ####[facility] [address] [place], [address] Platelets (Bld) [#/Vol] 530 10*3/uL High 150-450 [facility] Comment on above: Performed By: #### L 500.2500, L100.0100 ####[facility] [address] [place], [address] RBC (Bld) [#/Vol] 4.05 10*6/uL Low 4.2-5.4 [facility] Comment on above: Performed By: #### L 500.2500, L100.0100 ####[facility] [address] [place], [address] RDW SD 47.8 fl High 35.1-43.9 [facility] Comment on above: Performed By: #### L 500.2500, L100.0100 ####[facility] [address] [place], [place], [address] WBC (Bld) [#/Vol] 13.5 10*3/uL High 4.4-11.0 [facility] Comment on above: Performed By: #### L 500.2500, L100.0100 ####[facility] [address] [facility] [place], [address] Carbon dioxide, total [Moles /volume] in Central venous bloodOrdered By: Qamar Smith on 09-12-2024 CO2 [Moles/Vol] 27.6 mmol/L 21.0-32.0 [facility] Chloride assayOrdered By: Bhanu Smith on 09-12-2024 Chloride [Moles/Vol] 99 mmol/L 98-108 [facility] Eosinophil percentageOrdered By: Qamar Smith 09-12-2024 Eosinophils/100 WBC (Bld) 3.4 % 0-5 [facility] Erythrocyte distribution wid th ratioOrdered By: Qamar Smith on 09-12-2024 Erythrocyte distribution width (RBC) [Ratio] 13.9 % 11.6-14.6 [facility] Erythrocyte distribution wid th standard deviationOrdered By: Qamar Smith 09-12-2024 Erythrocyte distribution width (RBC) [Ratio] 47.8 fl High 35.1-43.9 [facility] Glomerular filtration rate ( GFR) estimation/1.73 sq m using serum, plasma, or whole bOrdered By: Qamar Smith 09-12-2024 GFR/1.73 sq M.predicted among non-blacks MDRD (S/P/Bld) [Vol rate/Area] 97 mL/min/{1.73_m2} >60 [facility] Comment on above: mL/min/1.73m2 CKD-EP I Creatinine Equation (2020) Hematocrit Auto (Bld) [Volum e fraction]Ordered By: Qamar Smith on 09-12-2024 Hematocrit (Bld) [Volume fraction] 38.1 % 37-47 [facility] Hemoglobin measurementOrdere d By: Qamar Smith 09-12-2024 Hemoglobin (Bld) [Mass/Vol] 12.8 g/dL 12.0-15.0 [facility] Immature granulocytes/100 WB C Auto (Bld)Ordered By: Qamar Smith on 09-12-2024 Immature granulocytes/100 WBC (Bld) 0.300 % 0.0-0.9 [facility] Comment on above: IG% - Immature Granu locytes (promyelocytes, myelocytes and metamyelocytes) > 1% indicates that a LEFT SHIFT is Present. MCV (mean corpuscular volume ) determinationOrdered By: Qamar Smith on 09-12-2024 MCV (RBC) [Entitic vol] 94.1 fL 81-99 [facility] Mean corpuscular hemoglobin (MCH) determinationOrdered By: Qamar Smith on 09-12-2024 MCH (RBC) [Entitic mass] 31.6 pg 27.0-32.0 [facility] Mean corpuscular hemoglobin concentration (MCHC) determinationOrdered By: Qamar Smith 09-12-2024 MCHC (RBC) [Mass/Vol] 33.6 g/dL 32-36 [facility] Mean platelet volume determi nationOrdered By: Qamar Smith on 09-12-2024 Platelet mean volume (Bld) [Entitic vol] 9.4 fL 6.2-12.0 [facility] Monocyte percentageOrdered B y: Qamar Smith on 09-12-2024 Monocytes/100 WBC (Bld) 7.2 % 0-10 [facility] Neutrophil percentageOrdered By: Qamar Smith on 09-12-2024 Neutrophils/100 WBC (Bld) 71.1 % High 47-70 [facility] Nucleated red blood cell per centageOrdered By: Qamar Smith on 09-12-2024 Nucleated RBC/100 WBC (Bld) [Ratio] 0 % 0-5 [facility] Platelet countOrdered By: Bhanu Smith on 09-12-2024 Platelets (Bld) [#/Vol] 530 10*3/uL High 150-450 [facility] Potassium measurement (mass/ volume)Ordered By: Qamar Smith on 09-12-2024 Potassium (Unsp spec) [Mass/Vol] 3.9 mmol/L 3.3-5.1 [facility] RBC Auto (Bld) [#/Vol]Ordere d By: Qamar Smith on 09-12-2024 RBC (Bld) [#/Vol] 4.05 10*6/uL Low 4.2-5.4 [facility] Serum creatinine measurement (mass/volume)Ordered By: Qamar Luis on 09-12-2024 Creatinine [Mass/Vol] 0.66 mg/dL Low 0.70-1.20 [facility] Serum glucose measurement (m ass/volume)Ordered By: Qamar Smith on 09-12-2024 Glucose [Mass/Vol] 127 mg/dL High 70-99 [facility] Serum or plasma calcium renetta urement (mass/volume)Ordered By: Qamar Luis on 09-12-2024 Calcium [Mass/Vol] 8.9 mg/dL 7.6-11.0 [facility] Serum or plasma urea nitroge n measurement (mass/volume)Ordered By: Qamar Luis on 09-12-2024 Urea nitrogen [Mass/Vol] 30 mg/dL High 4-19 [facility] Sodium levelOrdered By: Qamar Luis on 09-12-2024 Sodium [Moles/Vol] 139 mmol/L 133-145 [facility] White blood cell (WBC) count Ordered By: Qamar Smith on 09-12-2024 WBC (Bld) [#/Vol] 13.5 10*3/uL High 4.4-11.0 [facility] Basic Metabolic Profile (BMP )on 09-05-2024 BUN/CRE 44.4 RATIO High 10-20 [facility] Comment on above: Performed By: #### L 500.2500, L100.0100 ####[facility] [address] [place], [address] Calcium [Mass/Vol] 9.1 mg/dL Normal 7.6-11.0 [facility] Comment on above: Performed By: #### L 500.2500, L100.0100 ####[facility] [address] [place], [address] Chloride [Moles/Vol] 102 mmol/L Normal 98-108 [facility] Comment on above: Performed By: #### L 500.2500, L100.0100 ####[facility] [address] [place], [address] CO2 [Moles/Vol] 24.8 mmol/L Normal 21.0-32.0 [facility] Comment on above: Performed By: #### L 500.2500, L100.0100 ####[facility] [address] [place], [address] Creatinine [Mass/Vol] 0.52 mg/dL Low 0.70-1.20 [facility] Comment on above: Performed By: #### L 500.2500, L100.0100 ####[facility] [address] [place], [address] ECRCL 45.33 ml/min Low 50-250 [facility] Comment on above: Performed By: #### L 500.2500, L100.0100 ####[facility] [address] [place], [address] GAP 13 Normal 5-15 [facility] Comment on above: Performed By: #### L 500.2500, L100.0100 ####[facility] [address] [place], [address] GFR/1.73 sq M.predicted among non-blacks MDRD (S/P/Bld) [Vol rate/Area] 103 mL/min/{1.73_m2} Normal >60 [facility] Comment on above: Result Comment: mL/m in/1.73m2 CKD-EPI Creatinine Equation (2020) Performed By: #### L 500.2500, L100.0100 ####[facility] [address] [place], [address] Glucose [Mass/Vol] 88 mg/dL Normal 70-99 [facility] Comment on above: Performed By: #### L 500.2500, L100.0100 ####[facility] [address] [place], [address] Potassium [Moles/Vol] 4.1 mmol/L Normal 3.3-5.1 [facility] Comment on above: Performed By: #### L 500.2500, L100.0100 ####[facility] [address] [place], [address] Sodium [Moles/Vol] 139 mmol/L Normal 133-145 [facility] Comment on above: Performed By: #### L 500.2500, L100.0100 ####[facility] [address] [place], [address] Urea nitrogen [Mass/Vol] 23 mg/dL High 4-19 [facility] Comment on above: Performed By: #### L 500.2500, L100.0100 ####[facility] [address] [place], [address] CBC W/Diff, Automatedon 06- 2-2024 Absolute Lymph 1.63 X10 3/uL Normal 0.83-4.51 [facility] Comment on above: Performed By: #### L 500.2500, L100.0100 ####[facility] [address] [place], [address] Absolute Neut 5.9 X10 3/uL Normal 2.0-7.7 [facility] Comment on above: Performed By: #### L 500.2500, L100.0100 ####[facility] [address] [place], [address] Basophils/100 WBC (Bld) 1.2 % High 0-1 [facility] Comment on above: Performed By: #### L 500.2500, L100.0100 ####[facility] [address] [place], [address] Eosinophils/100 WBC (Bld) 7.5 % High 0-5 [facility] Comment on above: Performed By: #### L 500.2500, L100.0100 ####[facility] [address] [place], [address] Erythrocyte distribution width (RBC) [Ratio] 14.6 % Normal 11.6-14.6 [facility] Comment on above: Performed By: #### L 500.2500, L100.0100 ####[facility] [address] [place], [address] Hematocrit (Bld) [Volume fraction] 33.9 % Low 37-47 [facility] Comment on above: Performed By: #### L 500.2500, L100.0100 ####[facility] [address] [place], [address] Hemoglobin (Bld) [Mass/Vol] 11.3 g/dL Low 12.0-15.0 [facility] Comment on above: Performed By: #### L 500.2500, L100.0100 ####[facility] [address] [place], [address] IG% 1.100 High 0.0-0.9 [facility] Comment on above: Result Comment: IG% - Immature Granulocytes (promyelocytes, myelocytes andmetamyelocytes) > 1% indicates that a LEFT SHIFT is Present. Performed By: #### L 500.2500, L100.0100 ####[facility] [address] [place], [address] Lymphocytes/100 WBC (Bld) 17.4 % Low 19-41 [facility] Comment on above: Performed By: #### L 500.2500, L100.0100 ####[facility] [address] [place], [address] MCH (RBC) [Entitic mass] 31.9 pg Normal 27.0-32.0 [facility] Comment on above: Performed By: #### L 500.2500, L100.0100 ####[facility] [address] [place], [address] MCHC (RBC) [Mass/Vol] 33.3 g/dL Normal 32-36 [facility] Comment on above: Performed By: #### L 500.2500, L100.0100 ####[facility] [address] [place], [address] MCV (RBC) [Entitic vol] 95.8 fL Normal 81-99 [facility] Comment on above: Performed By: #### L 500.2500, L100.0100 ####[facility] [address] [place], [address] Monocytes/100 WBC (Bld) 10.3 % High 0-10 [facility] Comment on above: Performed By: #### L 500.2500, L100.0100 ####[facility] [address] [place], [address] Neutrophils/100 WBC (Bld) 62.5 % Normal 47-70 [facility] Comment on above: Performed By: #### L 500.2500, L100.0100 ####[facility] [address] [place], [address] Nucleated RBC (Bld) [#/Vol] 0 10*3/uL Normal 0-5 [facility] Comment on above: Performed By: #### L 500.2500, L100.0100 ####[facility] [address] [place], [address] Platelet mean volume (Bld) [Entitic vol] 9.2 fL Normal 6.2-12.0 [facility] Comment on above: Performed By: #### L 500.2500, L100.0100 ####[facility] [address] [place], [address] Platelets (Bld) [#/Vol] 363 10*3/uL Normal 150-450 [facility] Comment on above: Performed By: #### L 500.2500, L100.0100 ####[facility] [address] [place], [address] RBC (Bld) [#/Vol] 3.54 10*6/uL Low 4.2-5.4 [facility] Comment on above: Performed By: #### L 500.2500, L100.0100 ####[facility] [address] [place], [address] RDW SD 51.2 fl High 35.1-43.9 [facility] Comment on above: Performed By: #### L 500.2500, L100.0100 ####[facility] [address] [place], [address] WBC (Bld) [#/Vol] 9.4 10*3/uL Normal 4.4-11.0 [facility] Comment on above: Performed By: #### L 500.2500, L100.0100 ####[facility] [address] [place], [address] CASE MANAGEMon 09-04-2024 CASE MANAGEM Normal [facility] CBC panel Auto (Bld)on 09-04 Erythrocyte distribution width (RBC) [Ratio] 14.6 % Normal 11.5-15.0 [facility] Comment on above: Order Comment: Speci men Type: BLOOD SPECIMENOrdering Facility: [facility] Address: [address] [place] [address] Performed By: #### 5 8410-2 ####WO[facility] LABORATORYCLIA [id number] [place] [address] [place] Hematocrit (Bld) [Volume fraction] 34.1 % Low 36.0-46.0 [facility] Comment on above: Order Comment: Speci men Type: BLOOD SPECIMENOrdering Facility: [facility] Address: [address] [place] [address] Performed By: #### 5 8410-2 ####[facility] LABORATORYCLIA [id number] [address] [place] Hemoglobin (Bld) [Mass/Vol] 11.1 g/dL Low 11.5-15.5 [facility] Comment on above: Order Comment: Speci men Type: BLOOD SPECIMENOrdering Facility: [facility] Address: [address] [place] [address] Performed By: #### 5 8410-2 ####[facility] LABORATORYCLIA [id number] [address] STATES [facility] MCH (RBC) [Entitic mass] 30.9 pg Normal 26.0-34.0 [facility] Comment on above: Order Comment: Speci men Type: BLOOD SPECIMENOrdering Facility: [facility] Address: [address] [place] [address] Performed By: #### 5 8410-2 ####[facility] LABORATORYCLIA [id number] [address] MCHC (RBC) [Mass/Vol] 32.6 g/dL Normal 30.5-36.0 [facility] Comment on above: Order Comment: Speci men Type: BLOOD SPECIMENOrdering Facility: [facility] Address: [address] [place] [address] Performed By: #### 5 8410-2 ####[facility] LABORATORYCLIA [id number] [address] [place] MCV (RBC) [Entitic vol] 95.0 fL Normal 80.0-100.0 [facility] Comment on above: Order Comment: Speci men Type: BLOOD SPECIMENOrdering Facility: [facility] Address: [address] [place] [address] Performed By: #### 5 8410-2 ####[facility] LABORATORYCLIA [id number] [address] Nucleated RBC (Bld) [#/Vol] 10*3/uL Normal <0.01 [facility] Comment on above: Order Comment: Speci men Type: BLOOD SPECIMENOrdering Facility: [facility] Address: [address] [place] [address] Performed By: #### 5 8410-2 ####WO[facility] LABORATORYCLIA [id number] [place] [id number] [place] Platelet mean volume (Bld) [Entitic vol] 9.0 fL Normal 9.0-12.7 [facility] Comment on above: Order Comment: Speci men Type: BLOOD SPECIMENOrdering Facility: [facility] Address: [facility] [place] [address] Performed By: #### 5 8410-2 ####WO[facility] LABORATORYCLIA [id number] [place] [id number] [place] Platelets (Bld) [#/Vol] 347 10*3/uL Normal 150-400 [facility] Comment on above: Order Comment: Speci men Type: BLOOD SPECIMENOrdering Facility: [facility] Address: [address] [place] [address] Performed By: #### 5 8410-2 ####WO[facility] LABORATORYCLIA [id number] [place] [id number] [place] RBC (Bld) [#/Vol] 3.59 10*6/uL Low 3.90-5.20 [facility] Comment on above: Order Comment: Speci men Type: BLOOD SPECIMENOrdering Facility: [facility] Address: [address] [place] [address] Performed By: #### 5 8410-2 ####WO[facility] LABORATORYCLIA [id number] [place] [id number] [place] WBC (Bld) [#/Vol] 11.16 10*3/uL High 3.70-11.00 [facility] Comment on above: Order Comment: Speci men Type: BLOOD SPECIMENOrdering Facility: [facility] Address: [address] [place] [address] Performed By: #### 5 8410-2 ####WOOD LABORATORYCLIA [id number] [place] [id number] [place] CNDSon 09-04-2024 [facility] CNPNon 09-04-2024 CNPN Normal [facility] Magnesium SerPl-mCncon 09-04 Magnesium [Mass/Vol] 2.0 mg/dL Normal 1.7-2.3 [facility] Comment on above: Order Comment: Speci men Type: BLOOD SPECIMENOrdering Facility: [facility] Address: [address] [place] [address] Performed By: #### 1 9123-9, 66477-5 ####EMMAN[facility]EL LABORATORYCLIA [id number] [place] [id number] [place] NURSING PROGon 09-04-2024 NURSING PRO Normal [facility] NURSING PROG Normal [facility] Renal function 2000 panelon 09-04-2024 Albumin [Mass/Vol] 3.5 g/dL Low 3.9-4.9 [facility] Comment on above: Order Comment: Speci men Type: BLOOD SPECIMENOrdering Facility: [facility] Address: [address] [place] [address] Performed By: #### 1 9123-9, 05943-5 ####WO[facility] LABORATORYCLIA [id number] [place] [id number] [place] Anion gap [Moles/Vol] 9 mmol/L Normal 8-15 [facility] Comment on above: Order Comment: Speci men Type: BLOOD SPECIMENOrdering Facility: [facility] Address: [address] [place] [address] Performed By: #### 1 9123-9, 44848-8 ####[facility] LABORATORYCLIA [id number] [place] [id number] [place] Calcium [Mass/Vol] 8.5 mg/dL Normal 8.5-10.2 [facility] Comment on above: Order Comment: Speci men Type: BLOOD SPECIMENOrdering Facility: [facility] Address: [address] [place] [address] Performed By: #### 1 9123-9, 08940-2 ####WO[facility] LABORATORYCLIA [id number] [place] [id number] [place] Chloride [Moles/Vol] 106 mmol/L Normal 98-107 [facility] Comment on above: Order Comment: Speci men Type: BLOOD SPECIMENOrdering Facility: [facility] Address: [address] [place] [address] Performed By: #### 1 9123-9, 25803-5 ####EMMAN[facility]EL LABORATORYCLIA [id number] [place] [id number] [place] CO2 [Moles/Vol] 24 mmol/L Normal 22-30 [facility] Comment on above: Order Comment: Speci men Type: BLOOD SPECIMENOrdering Facility: [facility] Address: [address] [place] [address] Performed By: #### 1 9123-9, 62488-6 ####EM[facility] LABORATORYCLIA [id number] [address] [place] Creatinine [Mass/Vol] 0.45 mg/dL Low 0.58-0.96 [facility] Comment on above: Order Comment: Speci men Type: BLOOD SPECIMENOrdering Facility: [facility] Address: [address] [place] [address] Performed By: #### 1 9123-9, 57017-8 ####EM[facility] LABORATORYCLIA [id number] [address] Creatinine and Glomerular filtration rate.predicted panel (S/P/Bld) 107 mL/min/1.73m??? Normal >=60 [facility] Comment on above: Order Comment: Speci men Type: BLOOD SPECIMENOrdering Facility: [facility] Address: [address] [place] [address] Result Comment: Sana mated Glomerular Filtration Rate [...] actual GFR. Performed By: #### 1 9123-9, 80400-9 ####EMMAN[facility]EL LABORATORYCLIA [id number] [place] [id number] [place] Glucose [Mass/Vol] 95 mg/dL Normal 74-99 [facility] Comment on above: Order Comment: Umesh baugh Type: BLOOD SPECIMENOrdering Facility: [facility] Address: [address] [place] [address] Result Comment: The [place] [employer] (ADA) provides guidance for cutoff [...] Standards of Medical Care in Diabetes 2016, [place] [employer]. Diabetes Care. 2016.39(Suppl 1). Performed By: #### 1 9123-9, 91975-9 ####WO[facility] LABORATORYCLIA [id number] [place] [id number] [place] Phosphate [Mass/Vol] 4.5 mg/dL Normal 2.7-4.8 [facility] Comment on above: Order Comment: Umesh baugh Type: BLOOD SPECIMENOrdering Facility: [facility] Address: [address] [place] [address] Performed By: #### 1 9123-9, 09888-1 ####WO[facility] LABORATORYCLIA [id number] [place] [id number] [place] Potassium [Moles/Vol] 4.4 mmol/L Normal 3.7-5.1 [facility] Comment on above: Order Comment: Umesh baugh Type: BLOOD SPECIMENOrdering Facility: [facility] Address: [address] [place] [address] Performed By: #### 1 9123-9, 48762-8 ####WO[facility] LABORATORYCLIA [id number] [place] [id number] [place] Sodium [Moles/Vol] 139 mmol/L Normal 136-144 [facility] Comment on above: Order Comment: Speci men Type: BLOOD SPECIMENOrdering Facility: [facility] Address: [address] [place] [address] Performed By: #### 1 9123-9, 95535-4 ####[facility] LABORATORYCLIA [id number] [place] [id number] [place] Urea nitrogen [Mass/Vol] 17 mg/dL Normal 7-21 [facility] Comment on above: Order Comment: Speci men Type: BLOOD SPECIMENOrdering Facility: [facility] Address: [address] [place] [address] Performed By: #### 1 9123-9, 70636-3 ####[facility] LABORATORYCLIA [id number] [address] [place] THERAPY NTon 09-04-2024 THERAPY NT Normal [facility] CBC panel Auto (Bld)on 09-03 Erythrocyte distribution width (RBC) [Ratio] 15.2 % High 11.5-15.0 [facility] Comment on above: Order Comment: Speci men Type: BLOOD SPECIMENOrdering Facility: [facility] Address: [address] [place] [address] Performed By: #### 5 8410-2 ####[facility] LABORATORYCLIA [id number] [place] [address] [place] Hematocrit (Bld) [Volume fraction] 32.1 % Low 36.0-46.0 [facility] Comment on above: Order Comment: Speci men Type: BLOOD SPECIMENOrdering Facility: [facility] Address: [address] [place] [address] Performed By: #### 5 8410-2 ####WO[facility] LABORATORYCLIA [id number] [place] [id number] [place] Hemoglobin (Bld) [Mass/Vol] 10.8 g/dL Low 11.5-15.5 [facility] Comment on above: Order Comment: Speci men Type: BLOOD SPECIMENOrdering Facility: [facility] Address: [address] [place] [address] Performed By: #### 5 8410-2 ####[facility] LABORATORYCLIA [id number] [place] [id number] [place] MCH (RBC) [Entitic mass] 31.9 pg Normal 26.0-34.0 [facility] Comment on above: Order Comment: Speci men Type: BLOOD SPECIMENOrdering Facility: [facility] Address: [address] [place] [address] Performed By: #### 5 8410-2 ####[facility] LABORATORYCLIA [id number] [place] [address] [place] MCHC (RBC) [Mass/Vol] 33.6 g/dL Normal 30.5-36.0 [facility] Comment on above: Order Comment: Speci men Type: BLOOD SPECIMENOrdering Facility: [facility] Address: [address] [place] [address] Performed By: #### 5 8410-2 ####[facility] LABORATORYCLIA [id number] [address] [place] MCV (RBC) [Entitic vol] 94.7 fL Normal 80.0-100.0 [facility] Comment on above: Order Comment: Speci men Type: BLOOD SPECIMENOrdering Facility: [facility] Address: [address] [place] [address] Performed By: #### 5 8410-2 ####[facility] LABORATORYCLIA [id number] [address] [place] Nucleated RBC (Bld) [#/Vol] 10*3/uL Normal <0.01 [facility] Comment on above: Order Comment: Speci men Type: BLOOD SPECIMENOrdering Facility: [facility] Address: [address] [place] [address] Performed By: #### 5 8410-2 ####[facility] LABORATORYCLIA [id number] [address] [place] Platelet mean volume (Bld) [Entitic vol] 9.3 fL Normal 9.0-12.7 [facility] Comment on above: Order Comment: Speci men Type: BLOOD SPECIMENOrdering Facility: [facility] Address: [address] [place] [address] Performed By: #### 5 8410-2 ####EM[facility] LABORATORYCLIA [id number] [place] [id number] [place] Platelets (Bld) [#/Vol] 332 10*3/uL Normal 150-400 [facility] Comment on above: Order Comment: Speci men Type: BLOOD SPECIMENOrdering Facility: [facility] Address: [address] [place] [address] Performed By: #### 5 8410-2 ####[facility] LABORATORYCLIA [id number] [place] [id number] [place] RBC (Bld) [#/Vol] 3.39 10*6/uL Low 3.90-5.20 [facility] Comment on above: Order Comment: Speci men Type: BLOOD SPECIMENOrdering Facility: [facility] Address: [address] [place] [address] Performed By: #### 5 8410-2 ####[facility] LABORATORYCLIA [id number] [place] [id number] [place] WBC (Bld) [#/Vol] 10.64 10*3/uL Normal 3.70-11.00 [facility] Comment on above: Order Comment: Speci men Type: BLOOD SPECIMENOrdering Facility: [facility] Address: [address] [place] [address] Performed By: #### 5 8410-2 ####[facility] LABORATORYCLIA [id number] [place] [id number] [place] CNPNon 09-03-2024 CNPN Normal [facility] Magnesium SerPl-mCncon 09-03 Magnesium [Mass/Vol] 2.1 mg/dL Normal 1.7-2.3 [facility] Comment on above: Order Comment: Speci men Type: BLOOD SPECIMENOrdering Facility: [facility] Address: [address] [place] [address] Performed By: #### 2 4362-6, 33044-5, 2570-10 ####EMMAN[facility]EL LABORATORYCLIA [id number] [place] [address] [place] NURSING PROGon 09-03-2024 NURSING PROG Normal [facility] NURSING PROG Normal [facility] NUTRITIONon 09-03-2024 NUTRITION Normal [facility] Renal function 2000 panelon 09-03-2024 Albumin [Mass/Vol] 3.3 g/dL Low 3.9-4.9 [facility] Comment on above: Order Comment: Speci men Type: BLOOD SPECIMENOrdering Facility: [facility] Address: [address] [place] [address] Performed By: #### 2 4362-6, , 2570-10 ####EMMAN[facility]EL LABORATORYCLIA [id number] [place] [id number] [place] Anion gap [Moles/Vol] 11 mmol/L Normal 8-15 [facility] Comment on above: Order Comment: Speci men Type: BLOOD SPECIMENOrdering Facility: [facility] Address: [address] [place] [address] Performed By: #### 2 4362-6, , 2570-10 ####EMMAN[facility]EL LABORATORYCLIA [id number] [place] [id number] [place] Calcium [Mass/Vol] 8.8 mg/dL Normal 8.5-10.2 [facility] Comment on above: Order Comment: Speci men Type: BLOOD SPECIMENOrdering Facility: [facility] Address: [address] [place] [address] Performed By: #### 2 4362-6, , 2570-10 ####EMMAN[facility]EL LABORATORYCLIA [id number] [place] [id number] [place] Chloride [Moles/Vol] 102 mmol/L Normal 98-107 [facility] Comment on above: Order Comment: Speci men Type: BLOOD SPECIMENOrdering Facility: [facility] Address: [address] [place], [place] [address] Performed By: #### 2 4362-6, , 2570-10 ####EMMAN[facility]EL LABORATORYCLIA [id number] [place] [id number] [place] CO2 [Moles/Vol] 26 mmol/L Normal 22-30 [facility] Comment on above: Order Comment: Umesh baugh Type: BLOOD SPECIMENOrdering Facility: [facility] Address: [address] [place] [address] Performed By: #### 2 4362-6, 68971-8, 2570-10 ####WO[facility] LABORATORYCLIA [id number] [place] [id number] [place] Creatinine [Mass/Vol] 0.40 mg/dL Low 0.58-0.96 [facility] Comment on above: Order Comment: Umesh baugh Type: BLOOD SPECIMENOrdering Facility: [facility] Address: [address] [place] [address] Performed By: #### 2 4362-6, , 2570-10 ####WO[facility] LABORATORYCLIA [id number] [place] [address] [place] Creatinine and Glomerular filtration rate.predicted panel (S/P/Bld) 110 mL/min/1.73m??? Normal >=60 [facility] Comment on above: Order Comment: Umesh baugh Type: BLOOD SPECIMENOrdering Facility: [facility] Address: [address] [place] [address] Result Comment: Sana mated Glomerular Filtration Rate [...] actual GFR. Performed By: #### 2 4362-6, 23785-3, 2570-10 ####WOOD LABORATORYCLIA [id number] [place] [id number] [place] Glucose [Mass/Vol] 125 mg/dL High 74-99 [facility] Comment on above: Order Comment: Umesh baugh Type: BLOOD SPECIMENOrdering Facility: [facility] [facility] Address: [address] [place] [address] Result Comment: The [place] [employer] (ADA) provides guidance for cutoff [...] Standards of Medical Care in Diabetes 2016, [place] [employer]. Diabetes Care. 2016.39(Suppl 1). Performed By: #### 2 4362-6, , 2570-10 ####EMMANUEL LABORATORYCLIA [id number] [place] [id number] [place] Phosphate [Mass/Vol] 4.0 mg/dL Normal 2.7-4.8 [facility] Comment on above: Order Comment: Speci men Type: BLOOD SPECIMENOrdering Facility: [facility] Address: [address] [id number] Performed By: #### 2 4362-6, , 2570-10 ####EMMANUEL LABORATORYCLIA [id number] [place] [id number] [place] Potassium [Moles/Vol] 4.6 mmol/L Normal 3.7-5.1 [facility] Comment on above: Order Comment: Speci men Type: BLOOD SPECIMENOrdering Facility: [facility] Address: [address] [id number] Performed By: #### 2 4362-6, , 2570-10 ####EMMANUEL LABORATORYCLIA [id number] [place] [id number] [place] Sodium [Moles/Vol] 139 mmol/L Normal 136-144 [facility] Comment on above: Order Comment: Speci men Type: BLOOD SPECIMENOrdering Facility: [facility] Address: [address] [place] [address] Performed By: #### 2 4362-6, , 2570-10 ####EMMANUEL LABORATORYCLIA [id number] [place] [address] [place] [facility] Urea nitrogen [Mass/Vol] 13 mg/dL Normal 7-21 [facility] Comment on above: Order Comment: Speci men Type: BLOOD SPECIMENOrdering Facility: [facility] Address: [address] [place] [address] [place] [address] Performed By: #### 2 4362-6, , 2570-10 ####EMMANUEL LABORATORYCLIA [id number] [place] [address] [facility] THERAPY NTon 09-03-2024 THERAPY NT Normal [facility] Trigl SerPl-mCncon Triglyceride [Mass/Vol] 145 mg/dL Normal <150 [facility] Comment on above: Order Comment: Speci men Type: BLOOD SPECIMENOrdering Facility: [facility] Address: [address] [place] [address] Result Comment: <150 mg/dL, Normal 150-199 mg/dL, Borderline high 200-499 mg/dL, High>499 mg/dL, Very highReference:1. National Cholesterol Education Program ATP III Guideline At-A-Glance Quick Desk Reference: National Heart, Lung, and Blood [place]. National Institutes of Health. 2001: NIH Publication No. 01-3305. Performed By: #### 2 4362-6, , 2570-10 ####EMMANUEL LABORATORYCLIA [id number] [place] [id number] [place] [facility] Triglyceride [Mass/Vol]on FASTING TIME 5 hrs Normal [facility] Comment on above: Order Comment: Speci men Type: BLOOD SPECIMENOrdering Facility: [facility] Address: [facility] [place] [address] Performed By: #### 2 4362-6, , 2570-10 ####EMMANUEL LABORATORYCLIA [id number] [place] [address] [place] ALLIED HEALTHon 09-02-2024 ALLIED HEALTH Normal [facility] Basic metabolic 2000 panelon 09-02-2024 Anion gap [Moles/Vol] 12 mmol/L Normal 8-15 [facility] Comment on above: Order Comment: Speci men Type: BLOOD SPECIMENOrdering Facility: [facility] Address: [address] [place] [address] Performed By: #### 2 4325-3, , 1987-07, ####WOOD LABORATORYCLIA [id number] [place] [address] [place] Calcium [Mass/Vol] 8.3 mg/dL Low 8.5-10.2 [facility] Comment on above: Order Comment: Speci men Type: BLOOD SPECIMENOrdering Facility: [facility] Address: [address] [place] [address] Performed By: #### 2 432-3, , ####WOOD LABORATORYCLIA [id number] [place] [id number] [place] Chloride [Moles/Vol] 98 mmol/L Normal 98-107 [facility] Comment on above: Order Comment: Speci men Type: BLOOD SPECIMENOrdering Facility: [facility] Address: [address] [place] [address] Performed By: #### 2 4325-3, , 1987-07, ####WOOD LABORATORYCLIA [id number] [place] [id number] [place] CO2 [Moles/Vol] 28 mmol/L Normal 22-30 [facility] Comment on above: Order Comment: Speci men Type: BLOOD SPECIMENOrdering Facility: [facility] Address: [address] [place] [address] Performed By: #### 2 4325-3, 50277-6, ####WOOD LABORATORYCLIA [id number] [place] [address] [place] Creatinine [Mass/Vol] 0.37 mg/dL Low 0.58-0.96 [facility] Comment on above: Order Comment: Umesh baugh Type: BLOOD SPECIMENOrdering Facility: [facility] Address: [address] [place] [address] Performed By: #### 2 4325-3, 62998-9, ####WOOD LABORATORYCLIA [id number] [place] [id number] [place] Creatinine and Glomerular filtration rate.predicted panel (S/P/Bld) 112 mL/min/1.73m??? Normal >=60 [facility] Comment on above: Order Comment: Umesh baugh Type: BLOOD SPECIMENOrdering Facility: [facility] Address: [address] [place] [address] Result Comment: Sana mated Glomerular Filtration Rate [...] actual GFR. Performed By: #### 2 4325-3, 59058-0, ####WOOD LABORATORYCLIA [id number] [place] [id number] [place] Glucose [Mass/Vol] 108 mg/dL High 74-99 [facility] Comment on above: Order Comment: Umesh baugh Type: BLOOD SPECIMENOrdering Facility: [facility] Address: [address] [place] [address] Result Comment: The [place] Diabetes [employer] (ADA) provides guidance for cutoff [...] Standards of Medical Care in Diabetes 2016, [place] [employer]. Diabetes Care. 2016.39(Suppl 1). Performed By: #### 2 4325-3, 35160-7, 1987-07, ####[facility] LABORATORYCLIA [id number] [place] [address] [place] Potassium [Moles/Vol] 3.1 mmol/L Low 3.7-5.1 [facility] Comment on above: Order Comment: Speci men Type: BLOOD SPECIMENOrdering Facility: [facility] Address: [address] [place] [address] Performed By: #### 2 4325-3, , 1987-07, ####[facility] LABORATORYCLIA [id number] [place] [id number] [place] Sodium [Moles/Vol] 138 mmol/L Normal 136-144 [facility] Comment on above: Order Comment: Speci men Type: BLOOD SPECIMENOrdering Facility: [facility] Address: [address] [place] [address] Performed By: #### 2 4325-3, , ####[facility] LABORATORYCLIA [id number] [place] [id number] [place] Urea nitrogen [Mass/Vol] 13 mg/dL Normal 7-21 [facility] Comment on above: Order Comment: Speci men Type: BLOOD SPECIMENOrdering Facility: [facility] Address: [address] [place] [address] Performed By: #### 2 4325-3, , ####[facility] LABORATORYCLIA [id number] [place] [id number] [place] CASE MANAGEMon 09-02-2024 CASE MANAGEM Normal [facility] CBC panel Auto (Bld)on 09-02 Erythrocyte distribution width (RBC) [Ratio] 15.8 % High 11.5-15.0 [facility] Comment on above: Order Comment: Speci men Type: BLOOD SPECIMENOrdering Facility: [facility] Address: [address] [place] [address] Performed By: #### 5 8410-2 ####EMMANUEL LABORATORYCLIA [id number] [address] Hematocrit (Bld) [Volume fraction] 30.7 % Low 36.0-46.0 [facility] Comment on above: Order Comment: Speci men Type: BLOOD SPECIMENOrdering Facility: [facility] Address: [address] [place] [address] Performed By: #### 5 8410-2 ####EMMANUEL LABORATORYCLIA [id number] [address] [place] Hemoglobin (Bld) [Mass/Vol] 10.6 g/dL Low 11.5-15.5 [facility] Comment on above: Order Comment: Speci men Type: BLOOD SPECIMENOrdering Facility: [facility] Address: [address] [place] [address] Performed By: #### 5 8410-2 ####EMMANUEL LABORATORYCLIA [id number] [address] [place] MCH (RBC) [Entitic mass] 32.8 pg Normal 26.0-34.0 [facility] Comment on above: Order Comment: Speci men Type: BLOOD SPECIMENOrdering Facility: [facility] Address: [address] [place] [address] Performed By: #### 5 8410-2 ####EMMANUEL LABORATORYCLIA [id number] [address] [place] MCHC (RBC) [Mass/Vol] 34.5 g/dL Normal 30.5-36.0 [facility] Comment on above: Order Comment: Speci men Type: BLOOD SPECIMENOrdering Facility: [facility] Address: [address] [place] [address] Performed By: #### 5 8410-2 ####[facility] LABORATORYCLIA [id number] [address] [place] MCV (RBC) [Entitic vol] 95.0 fL Normal 80.0-100.0 [facility] Comment on above: Order Comment: Speci men Type: BLOOD SPECIMENOrdering Facility: [facility] Address: [address] [place] [address] Performed By: #### 5 8410-2 ####[facility] LABORATORYCLIA [id number] [place] [id number] [place] Nucleated RBC (Bld) [#/Vol] 10*3/uL Normal <0.01 [facility] Comment on above: Order Comment: Speci men Type: BLOOD SPECIMENOrdering Facility: [facility] Address: [address] [place] [address] Performed By: #### 5 8410-2 ####WOOD LABORATORYCLIA [id number] [place] [address] [place] Platelet mean volume (Bld) [Entitic vol] 9.9 fL Normal 9.0-12.7 [facility] Comment on above: Order Comment: Speci men Type: BLOOD SPECIMENOrdering Facility: [facility] Address: [address] [place] [address] Performed By: #### 5 8410-2 ####WOOD LABORATORYCLIA [id number] [place] [address] [place] Platelets (Bld) [#/Vol] 345 10*3/uL Normal 150-400 [facility] Comment on above: Order Comment: Speci men Type: BLOOD SPECIMENOrdering Facility: [facility] Address: [address] [place] [address] Performed By: #### 5 8410-2 ####WOOD LABORATORYCLIA [id number] [place] [id number] [place] RBC (Bld) [#/Vol] 3.23 10*6/uL Low 3.90-5.20 [facility] Comment on above: Order Comment: Speci men Type: BLOOD SPECIMENOrdering Facility: [facility] Address: [address] [place] [address] Performed By: #### 5 8410-2 ####WOOD LABORATORYCLIA [id number] [place] [address] [place] WBC (Bld) [#/Vol] 9.39 10*3/uL Normal 3.70-11.00 [facility] Comment on above: Order Comment: Speci men Type: BLOOD SPECIMENOrdering Facility: [facility] Address: [address] [place] [address] Performed By: #### 5 8410-2 ####WOOD LABORATORYCLIA [id number] [place] [id number] [place] CRP SerPl-mCncon 09-02-2024 CRP [Mass/Vol] 1.9 mg/dL High <0.9 [facility] Comment on above: Order Comment: Speci men Type: BLOOD SPECIMENOrdering Facility: [facility] Address: [address] [place] [address] Performed By: #### 2 4325-3, 23919-3, 1987-07, ####WOOD LABORATORYCLIA [id number] [place] [id number] [place] Hepatic function 2000 panelo n 09-02-2024 Albumin [Mass/Vol] 2.9 g/dL Low 3.9-4.9 [facility] Comment on above: Order Comment: Speci men Type: BLOOD SPECIMENOrdering Facility: [facility] Address: [address] [place] [address] Performed By: #### 2 4325-3, 31230-2, 1987-07, ####WOOD LABORATORYCLIA [id number] [place] [id number] [place] ALP [Catalytic activity/Vol] 55 U/L Normal 34-123 [facility] Comment on above: Order Comment: Speci men Type: BLOOD SPECIMENOrdering Facility: [facility] Address: [address] [place] [address] Performed By: #### 2 4325-3, 18288-4, 1987-07, ####WOOD LABORATORYCLIA [id number] [place] [address] [place] ALT [Catalytic activity/Vol] 9 U/L Normal 7-38 [facility] Comment on above: Order Comment: Speci men Type: BLOOD SPECIMENOrdering Facility: [facility] Address: [address] [place] [address] Performed By: #### 2 4325-3, , 1987-07, ####[facility] LABORATORYCLIA [id number] [place] [address] [place] AST [Catalytic activity/Vol] 16 U/L Normal 13-35 [facility] Comment on above: Order Comment: Speci men Type: BLOOD SPECIMENOrdering Facility: [facility] Address: [address] [place] [address] Performed By: #### 2 432-3, , 1987-07, ####[facility] LABORATORYCLIA [id number] [place] [address] [place] Bilirubin [Mass/Vol] 0.4 mg/dL Normal 0.2-1.3 [facility] Comment on above: Order Comment: Speci men Type: BLOOD SPECIMENOrdering Facility: [facility] Address: [address] [place] [address] Performed By: #### 2 4325-3, , ####[facility] LABORATORYCLIA [id number] [place] [address] [place] Bilirubin.conjugated [Mass/Vol] 0.1 mg/dL Normal <0.3 [facility] Comment on above: Order Comment: Speci men Type: BLOOD SPECIMENOrdering Facility: [facility] Address: [address] [place], [place] [address] Performed By: #### 2 4325-3, , 1987-07, ####[facility] LABORATORYCLIA [id number] [place] [address] [place] Protein [Mass/Vol] 5.4 g/dL Low 6.3-8.0 [facility] Comment on above: Order Comment: Speci men Type: BLOOD SPECIMENOrdering Facility: [facility] Address: [address] [place] [address] Performed By: #### 2 4325-3, 57111-7, 1987-07, ####EMMANUEL LABORATORYCLIA [id number] [place] [address] [place] Magnesium SerPl-ncon 09-02 Magnesium [Mass/Vol] 1.8 mg/dL Normal 1.7-2.3 [facility] Comment on above: Order Comment: Speci men Type: BLOOD SPECIMENOrdering Facility: [facility] Address: [address] [place] [address] Performed By: #### 2 4325-3, 89746-2, 1987-07, ####EMMANUEL LABORATORYCLIA [id number] [place] [id number] [place] NUTRITIONon 09-02-2024 NUTRITION Normal [facility] Phosphate SerPl-ncon 09-02 Phosphate [Mass/Vol] 4.0 mg/dL Normal 2.7-4.8 [facility] Comment on above: Order Comment: Speci men Type: BLOOD SPECIMENOrdering Facility: [facility] Address: [address] [place] [address] Performed By: #### 2 777-1 ####EMMANUEL LABORATORYCLIA [id number] [place] [id number] [place] THERAPY NTon 09-02-2024 THERAPY NT Normal [facility] THERAPY NT Normal [facility] XR ABDOMEN 1V SUPINEon 09-02 XR ABDOMEN 1V SUPINE Normal [facility] CBC panel Auto (Bld)on 09-01 Erythrocyte distribution width (RBC) [Ratio] 16.4 % High 11.5-15.0 [facility] Comment on above: Order Comment: Speci men Type: BLOOD SPECIMENOrdering Facility: [facility] Address: [address] [place] [address] Performed By: #### 5 8410-2 ####EMMANUEL LABORATORYCLIA [id number] [place] [id number] [place] Hematocrit (Bld) [Volume fraction] 32.8 % Low 36.0-46.0 [facility] Comment on above: Order Comment: Speci men Type: BLOOD SPECIMENOrdering Facility: [facility] Address: [address] [place] [address] Performed By: #### 5 8410-2 ####EMMANUEL LABORATORYCLIA [id number] [place] [address] [place] Hemoglobin (Bld) [Mass/Vol] 11.3 g/dL Low 11.5-15.5 [facility] Comment on above: Order Comment: Speci men Type: BLOOD SPECIMENOrdering Facility: [facility] Address: [address] [place] [address] Performed By: #### 5 8410-2 ####EMMANUEL LABORATORYCLIA [id number] [place] [address] [place] MCH (RBC) [Entitic mass] 31.5 pg Normal 26.0-34.0 [facility] Comment on above: Order Comment: Speci men Type: BLOOD SPECIMENOrdering Facility: [facility] Address: [address] [place] [address] Performed By: #### 5 8410-2 ####EMMANUEL LABORATORYCLIA [id number] [place] [address] [place] MCHC (RBC) [Mass/Vol] 34.5 g/dL Normal 30.5-36.0 [facility] Comment on above: Order Comment: Speci men Type: BLOOD SPECIMENOrdering Facility: [facility] Address: [address] [place] [address] Performed By: #### 5 8410-2 ####EMMANUEL LABORATORYCLIA [id number] [place] [address] [place] MCV (RBC) [Entitic vol] 91.4 fL Normal 80.0-100.0 [facility] Comment on above: Order Comment: Speci men Type: BLOOD SPECIMENOrdering Facility: [facility] Address: [address] [place] [address] Performed By: #### 5 8410-2 ####EMMANUEL LABORATORYCLIA [id number] [place] [id number] [place] Nucleated RBC (Bld) [#/Vol] 10*3/uL Normal <0.01 [facility] Comment on above: Order Comment: Speci men Type: BLOOD SPECIMENOrdering Facility: [facility] Address: [address] [place] [address] Performed By: #### 5 8410-2 ####[facility] LABORATORYCLIA [id number] [place] [address] [place] Platelet mean volume (Bld) [Entitic vol] 9.9 fL Normal 9.0-12.7 [facility] Comment on above: Order Comment: Speci men Type: BLOOD SPECIMENOrdering Facility: [facility] Address: [address] [place] [address] Performed By: #### 5 8410-2 ####[facility] LABORATORYCLIA [id number] [place] [id number] [place] Platelets (Bld) [#/Vol] 346 10*3/uL Normal 150-400 [facility] Comment on above: Order Comment: Speci men Type: BLOOD SPECIMENOrdering Facility: [facility] Address: [address] [place] [address] Performed By: #### 5 8410-2 ####[facility] LABORATORYCLIA [id number] [place] [address] [place] RBC (Bld) [#/Vol] 3.59 10*6/uL Low 3.90-5.20 [facility] Comment on above: Order Comment: Speci men Type: BLOOD SPECIMENOrdering Facility: [facility] Address: [address] [place] [address] Performed By: #### 5 8410-2 ####WOOD LABORATORYCLIA [id number] [place] [id number] [place] WBC (Bld) [#/Vol] 9.45 10*3/uL Normal 3.70-11.00 [facility] Comment on above: Order Comment: Speci men Type: BLOOD SPECIMENOrdering Facility: [facility] Address: [address] [place] [address] Performed By: #### 5 8410-2 ####EMMANUEL LABORATORYCLIA [id number] [place] [id number] [place] CONSULT PROGon 09-01-2024 CONSULT PROG Normal [facility] Magnesium SerPl-mCncon 09-01 Magnesium [Mass/Vol] 1.8 mg/dL Normal 1.7-2.3 [facility] Comment on above: Order Comment: Speci men Type: BLOOD SPECIMENOrdering Facility: [facility] Address: [address] [place] [address] Performed By: #### 2 4362-6, ####EMMANUEL LABORATORYCLIA [id number] [place] [id number] [place] Renal function 2000 panelon 09-01-2024 Albumin [Mass/Vol] 2.7 g/dL Low 3.9-4.9 [facility] Comment on above: Order Comment: Speci men Type: BLOOD SPECIMENOrdering Facility: [facility] Address: [address] [place] [address] Performed By: #### 2 4362-6, ####EMMANUEL LABORATORYCLIA [id number] [place] [id number] [place] Anion gap [Moles/Vol] 9 mmol/L Normal 8-15 [facility] Comment on above: Order Comment: Speci men Type: BLOOD SPECIMENOrdering Facility: [facility] Address: [address] [place] [address] Performed By: #### 2 4362-6, ####EMMANUEL LABORATORYCLIA [id number] [place] [id number] [place] Calcium [Mass/Vol] 8.0 mg/dL Low 8.5-10.2 [facility] Comment on above: Order Comment: Speci men Type: BLOOD SPECIMENOrdering Facility: [facility] Address: [address] [place] [address] Performed By: #### 2 4362-6, ####[facility] LABORATORYCLIA [id number] [place] [address] [place] Chloride [Moles/Vol] 101 mmol/L Normal 98-107 [facility] Comment on above: Order Comment: Speci men Type: BLOOD SPECIMENOrdering Facility: [facility] Address: [address] [place] [address] Performed By: #### 2 4362-6, ####[facility] LABORATORYCLIA [id number] [place] [id number] [place] CO2 [Moles/Vol] 28 mmol/L Normal 22-30 [facility] Comment on above: Order Comment: Speci men Type: BLOOD SPECIMENOrdering Facility: [facility] Address: [address] [place] [address] Performed By: #### 2 43626, ####[facility] LABORATORYCLIA [id number] [place] [id number] [place] Creatinine [Mass/Vol] 0.40 mg/dL Low 0.58-0.96 [facility] Comment on above: Order Comment: Speci men Type: BLOOD SPECIMENOrdering Facility: [facility] Address: [address] [place] [address] Performed By: #### 2 4362-6, ####[facility] LABORATORYCLIA [id number] [place] [id number] [facility] [place] Creatinine and Glomerular filtration rate.predicted panel (S/P/Bld) 110 mL/min/1.73m??? Normal >=60 [facility] Comment on above: Order Comment: Speci men Type: BLOOD SPECIMENOrdering Facility: [facility] Address: [address] [place] [address] Result Comment: Sana mated Glomerular Filtration Rate [...] Performed By: #### 2 4362-6, ####EMMANUEL LABORATORYCLIA [id number] [place] [id number] [place] Glucose [Mass/Vol] 106 mg/dL High 74-99 [facility] Comment on above: Order Comment: Umesh baugh Type: BLOOD SPECIMENOrdering Facility: [facility] Address: [address] [place] [address] Result Comment: [place] Diabetes Association (ADA) provides guidance for cutoff [...] Standards of Medical Care in Diabetes 2016, [place] [employer]. Diabetes Care. 2016.39(Suppl 1). Performed By: #### 2 4362-6, ####EMMANUEL LABORATORYCLIA [id number] [place] [id number] [place] Phosphate [Mass/Vol] 4.0 mg/dL Normal 2.7-4.8 [facility] Comment on above: Order Comment: Umesh baugh Type: BLOOD SPECIMENOrdering Facility: [facility] Address: [address] [place] [address] Performed By: #### 2 4362-6, ####EMMANUEL LABORATORYCLIA [id number] [place] [address] [place] Potassium [Moles/Vol] 3.4 mmol/L Low 3.7-5.1 [facility] Comment on above: Order Comment: Umesh baugh Type: BLOOD SPECIMENOrdering Facility: [facility] Address: [address] [place] [address] Performed By: #### 2 4362-6, ####EMMANUEL LABORATORYCLIA [id number] [place] [id number] [place] Sodium [Moles/Vol] 138 mmol/L Normal 136-144 [facility] Comment on above: Order Comment: Speci men Type: BLOOD SPECIMENOrdering Facility: [facility] Address: [address] [place] [address] Performed By: #### 2 4362-6, ####EMMANUEL LABORATORYCLIA [id number] [place] [id number] [place] Urea nitrogen [Mass/Vol] 10 mg/dL Normal 7-21 [facility] Comment on above: Order Comment: Speci men Type: BLOOD SPECIMENOrdering Facility: [facility] Address: [address] [place] [address] Performed By: #### 2 4362-6, ####[facility] LABORATORYCLIA [id number] [place] [id number] [place] CBC panel Auto (Bld)on 08-31 Erythrocyte distribution width (RBC) [Ratio] 17.1 % High 11.5-15.0 [facility] Comment on above: Order Comment: Speci men Type: BLOOD SPECIMENOrdering Facility: [facility] Address: [address] [place] [address] Performed By: #### 5 8410-2 ####[facility] LABORATORYCLIA [id number] [place] [id number] [place] Hematocrit (Bld) [Volume fraction] 30.9 % Low 36.0-46.0 [facility] Comment on above: Order Comment: Speci men Type: BLOOD SPECIMENOrdering Facility: [facility] Address: [address] [place] [address] Performed By: #### 5 8410-2 ####[facility] LABORATORYCLIA [id number] [place] [id number] [place] Hemoglobin (Bld) [Mass/Vol] 10.6 g/dL Low 11.5-15.5 [facility] Comment on above: Order Comment: Speci men Type: BLOOD SPECIMENOrdering Facility: [facility] Address: [address] [place] [address] Performed By: #### 5 8410-2 ####EMMANUEL LABORATORYCLIA [id number] [address] MCH (RBC) [Entitic mass] 31.0 pg Normal 26.0-34.0 [facility] Comment on above: Order Comment: Speci men Type: BLOOD SPECIMENOrdering Facility: [facility] Address: [address] [place] [address] Performed By: #### 5 8410-2 ####[facility] LABORATORYCLIA [id number] [address] MCHC (RBC) [Mass/Vol] 34.3 g/dL Normal 30.5-36.0 [facility] Comment on above: Order Comment: Speci men Type: BLOOD SPECIMENOrdering Facility: [facility] Address: [address] [place] [address] Performed By: #### 5 8410-2 ####[facility] LABORATORYCLIA [id number] [address] [place] MCV (RBC) [Entitic vol] 90.4 fL Normal 80.0-100.0 [facility] Comment on above: Order Comment: Speci men Type: BLOOD SPECIMENOrdering Facility: [facility] Address: [address] [place] [address] Performed By: #### 5 8410-2 ####EMMANUEL LABORATORYCLIA [id number] [address] [place] Nucleated RBC (Bld) [#/Vol] 10*3/uL Normal <0.01 [facility] Comment on above: Order Comment: Speci men Type: BLOOD SPECIMENOrdering Facility: [facility] Address: [address] [place] [address] Performed By: #### 5 8410-2 ####EMMANUEL LABORATORYCLIA [id number] [address] [place] Platelet mean volume (Bld) [Entitic vol] 9.5 fL Normal 9.0-12.7 [facility] Comment on above: Order Comment: Speci men Type: BLOOD SPECIMENOrdering Facility: [facility] Address: [address] [place] [address] Performed By: #### 5 8410-2 ####WOOD LABORATORYCLIA [id number] [place] [address] [place] Platelets (Bld) [#/Vol] 322 10*3/uL Normal 150-400 [facility] Comment on above: Order Comment: Speci men Type: BLOOD SPECIMENOrdering Facility: [facility] Address: [address] [place] [address] Performed By: #### 5 8410-2 ####WOOD LABORATORYCLIA [id number] [place] [address] [place] RBC (Bld) [#/Vol] 3.42 10*6/uL Low 3.90-5.20 [facility] Comment on above: Order Comment: Speci men Type: BLOOD SPECIMENOrdering Facility: [facility] Address: [address] [place] [address] Performed By: #### 5 8410-2 ####WOOD LABORATORYCLIA [id number] [place] [address] [place] WBC (Bld) [#/Vol] 9.51 10*3/uL Normal 3.70-11.00 [facility] Comment on above: Order Comment: Speci men Type: BLOOD SPECIMENOrdering Facility: [facility] Address: [address] [place] [address] Performed By: #### 5 8410-2 ####WOOD LABORATORYCLIA [id number] [place] [id number] [place] CONSULT PROGon 08-31-2024 CONSULT PROG Normal [facility] Magnesium SerPl-mCncon 08-31 Magnesium [Mass/Vol] 2.0 mg/dL Normal 1.7-2.3 [facility] Comment on above: Order Comment: Speci men Type: BLOOD SPECIMENOrdering Facility: [facility] Address: [address] [place] [id number] Performed By: #### 2 4362-6, ####EMMANUEL LABORATORYCLIA [id number] [place] [address] [place] NUTRITIONon 08-31-2024 NUTRITION Normal [facility] Renal function 2000 panelon 08-31-2024 Albumin [Mass/Vol] 2.7 g/dL Low 3.9-4.9 [facility] Comment on above: Order Comment: Speci men Type: BLOOD SPECIMENOrdering Facility: [facility] Address: [facility] [place] [address] Performed By: #### 2 4362-6, ####EMMANUEL LABORATORYCLIA [id number] [place] [id number] [place] Anion gap [Moles/Vol] 11 mmol/L Normal 8-15 [facility] Comment on above: Order Comment: Speci men Type: BLOOD SPECIMENOrdering Facility: [facility] Address: [facility] [place] [address] Performed By: #### 2 4362-6, ####EMMANUEL LABORATORYCLIA [id number] [place] [id number] [place] Calcium [Mass/Vol] 8.0 mg/dL Low 8.5-10.2 [facility] Comment on above: Order Comment: Speci men Type: BLOOD SPECIMENOrdering Facility: [facility] Address: [facility] [place] [address] Performed By: #### 2 4362-6, ####EMMANUEL LABORATORYCLIA [id number] [place] [id number] [place] Chloride [Moles/Vol] 104 mmol/L Normal 98-107 [facility] Comment on above: Order Comment: Speci men Type: BLOOD SPECIMENOrdering Facility: [facility] Address: [address] [place], [place] [address] Performed By: #### 2 4362-6, ####EMMANUEL LABORATORYCLIA [id number] [place] [id number] [place] CO2 [Moles/Vol] 27 mmol/L Normal 22-30 [facility] Comment on above: Order Comment: Speci men Type: BLOOD SPECIMENOrdering Facility: [facility] Address: [address] [place] [address] Performed By: #### 2 4362-6, ####[facility] LABORATORYCLIA [id number] [place] [id number] [place] Creatinine [Mass/Vol] 0.49 mg/dL Low 0.58-0.96 [facility] Comment on above: Order Comment: Speci men Type: BLOOD SPECIMENOrdering Facility: [facility] Address: [address] [place] [address] Performed By: #### 2 4362-6, ####[facility] LABORATORYCLIA [id number] [place] [address] [place] [facility] Creatinine and Glomerular filtration rate.predicted panel (S/P/Bld) 105 mL/min/1.73m??? Normal >=60 [facility] Comment on above: Order Comment: Speci men Type: BLOOD SPECIMENOrdering Facility: [facility] Address: [address] [place] [address] Result Comment: Sana mated Glomerular Filtration Rate [...] Performed By: #### 2 4362-6, ####EMMANUEL LABORATORYCLIA [id number] [place] [id number] [place] Glucose [Mass/Vol] 106 mg/dL High 74-99 [facility] Comment on above: Order Comment: Speci men Type: BLOOD SPECIMENOrdering Facility: [facility] Address: [address] [place] [address] Result Comment: The [place] Diabetes Association (ADA) provides guidance for cutoff [...] Standards of Medical Care in Diabetes 2016, [place] [employer]. Diabetes Care. 2016.39(Suppl 1). Performed By: #### 2 4362-6, ####EMMANUEL LABORATORYCLIA [id number] [place] [id number] [place] Phosphate [Mass/Vol] 3.3 mg/dL Normal 2.7-4.8 [facility] Comment on above: Order Comment: Umesh baugh Type: BLOOD SPECIMENOrdering Facility: [facility] Address: [address] [place] [address] Performed By: #### 2 43605-02, ####EMMANUEL LABORATORYCLIA [id number] [place] [id number] [place] Potassium [Moles/Vol] 3.4 mmol/L Low 3.7-5.1 [facility] Comment on above: Order Comment: Umesh baugh Type: BLOOD SPECIMENOrdering Facility: [facility] Address: [address] [place] [address] Performed By: #### 2 43605-02, ####[facility] LABORATORYCLIA [id number] [place] [id number] [place] Sodium [Moles/Vol] 142 mmol/L Normal 136-144 [facility] Comment on above: Order Comment: Umesh baugh Type: BLOOD SPECIMENOrdering Facility: [facility] Address: [address] [place] [address] Performed By: #### 2 4362, ####EMMANUEL LABORATORYCLIA [id number] [place] [address] [place] Urea nitrogen [Mass/Vol] 9 mg/dL Normal 7-21 [facility] Comment on above: Order Comment: Speci men Type: BLOOD SPECIMENOrdering Facility: [facility] Address: [address] [place] [address] Performed By: #### 2 4362-6, 08784-9 ####WOOD LABORATORYCLIA [id number] [place] [address] [place] THERAPY NTon 08-31-2024 THERAPY NT Normal [facility] CASE MANAGEMon 08-30-2024 CASE MANAGEM Normal [facility] CBC panel Auto (Bld)on 08-30 Erythrocyte distribution width (RBC) [Ratio] 17.3 % High 11.5-15.0 [facility] Comment on above: Order Comment: Speci men Type: BLOOD SPECIMENOrdering Facility: [facility] Address: [address] [place] [address] Performed By: #### 5 8410-2 ####WOOD LABORATORYCLIA [id number] [place] [address] [place] Hematocrit (Bld) [Volume fraction] 29.8 % Low 36.0-46.0 [facility] Comment on above: Order Comment: Speci men Type: BLOOD SPECIMENOrdering Facility: [facility] Address: [address] [place] [address] Performed By: #### 5 8410-2 ####[facility] LABORATORYCLIA [id number] [place] [id number] [place] Hemoglobin (Bld) [Mass/Vol] 10.3 g/dL Low 11.5-15.5 [facility] Comment on above: Order Comment: Speci men Type: BLOOD SPECIMENOrdering Facility: [facility] Address: [address] [place] [address] Performed By: #### 5 8410-2 ####WOOD LABORATORYCLIA [id number] [place] [address] [place] MCH (RBC) [Entitic mass] 31.6 pg Normal 26.0-34.0 [facility] Comment on above: Order Comment: Speci men Type: BLOOD SPECIMENOrdering Facility: [facility] Address: [address] [place] [address] Performed By: #### 5 8410-2 ####[facility] LABORATORYCLIA [id number] [address] STATES [facility] MCHC (RBC) [Mass/Vol] 34.6 g/dL Normal 30.5-36.0 [facility] Comment on above: Order Comment: Speci men Type: BLOOD SPECIMENOrdering Facility: [facility] Address: [address] [place] [address] Performed By: #### 5 8410-2 ####[facility] LABORATORYCLIA [id number] [address] MCV (RBC) [Entitic vol] 91.4 fL Normal 80.0-100.0 [facility] Comment on above: Order Comment: Speci men Type: BLOOD SPECIMENOrdering Facility: [facility] Address: [address] [place] [address] Performed By: #### 5 8410-2 ####[facility] LABORATORYCLIA [id number] [address] Nucleated RBC (Bld) [#/Vol] 10*3/uL Normal <0.01 [facility] Comment on above: Order Comment: Speci men Type: BLOOD SPECIMENOrdering Facility: [facility] Address: [address] [place] [address] Performed By: #### 5 8410-2 ####[facility] LABORATORYCLIA [id number] [address] [place] Platelet mean volume (Bld) [Entitic vol] 9.6 fL Normal 9.0-12.7 [facility] Comment on above: Order Comment: Speci men Type: BLOOD SPECIMENOrdering Facility: [facility] Address: [address] [place] [address] Performed By: #### 5 8410-2 ####[facility] LABORATORYCLIA [id number] [place] [address] [place] Platelets (Bld) [#/Vol] 287 10*3/uL Normal 150-400 [facility] Comment on above: Order Comment: Speci men Type: BLOOD SPECIMENOrdering Facility: [facility] Address: [address] [place] [address] Performed By: #### 5 8410-2 ####WOOD LABORATORYCLIA [id number] [place] [address] [place] RBC (Bld) [#/Vol] 3.26 10*6/uL Low 3.90-5.20 [facility] Comment on above: Order Comment: Speci men Type: BLOOD SPECIMENOrdering Facility: [facility] Address: [address] [place] [address] Performed By: #### 5 8410-2 ####WOOD LABORATORYCLIA [id number] [address] [place] WBC (Bld) [#/Vol] 10.93 10*3/uL Normal 3.70-11.00 [facility] Comment on above: Order Comment: Speci men Type: BLOOD SPECIMENOrdering Facility: [facility] Address: [address] [place] [address] Performed By: #### 5 8410-2 ####WOOD LABORATORYCLIA [id number] [address] Erythrocyte distribution width (RBC) [Ratio] 13.4 % Normal 11.5-15.0 [facility] Comment on above: Order Comment: Speci men Type: BLOOD SPECIMENOrdering Facility: [facility] Address: [address] [place] [address] Performed By: #### 5 8410-2 ####WOOD LABORATORYCLIA [id number] [place] [id number] [facility] [place] Hematocrit (Bld) [Volume fraction] 21.5 % Low 36.0-46.0 [facility] Comment on above: Order Comment: Speci men Type: BLOOD SPECIMENOrdering Facility: [facility] Address: [address] [place] [address] Performed By: #### 5 8410-2 ####[facility] LABORATORYCLIA [id number] [address] [place] Hemoglobin (Bld) [Mass/Vol] 7.1 g/dL Low 11.5-15.5 [facility] Comment on above: Order Comment: Speci men Type: BLOOD SPECIMENOrdering Facility: [facility] Address: [address] [place] [address] Performed By: #### 5 8410-2 ####[facility] LABORATORYCLIA [id number] [address] [place] MCH (RBC) [Entitic mass] 32.7 pg Normal 26.0-34.0 [facility] Comment on above: Order Comment: Speci men Type: BLOOD SPECIMENOrdering Facility: [facility] Address: [address] [place] [address] Performed By: #### 5 8410-2 ####[facility] LABORATORYCLIA [id number] [address] MCHC (RBC) [Mass/Vol] 33.0 g/dL Normal 30.5-36.0 [facility] Comment on above: Order Comment: Speci men Type: BLOOD SPECIMENOrdering Facility: [facility] Address: [address] [place] [address] Performed By: #### 5 8410-2 ####[facility] LABORATORYCLIA [id number] [address] [place] MCV (RBC) [Entitic vol] 99.1 fL Normal 80.0-100.0 [facility] Comment on above: Order Comment: Speci men Type: BLOOD SPECIMENOrdering Facility: [facility] Address: [address] [place] [address] Performed By: #### 5 8410-2 ####WOOD LABORATORYCLIA [id number] [address] [place] Nucleated RBC (Bld) [#/Vol] 10*3/uL Normal <0.01 [facility] Comment on above: Order Comment: Speci men Type: BLOOD SPECIMENOrdering Facility: [facility] Address: [address] [place] [address] Performed By: #### 5 8410-2 ####[facility] LABORATORYCLIA [id number] [place] [id number] [place] Platelet mean volume (Bld) [Entitic vol] 9.6 fL Normal 9.0-12.7 [facility] Comment on above: Order Comment: Speci men Type: BLOOD SPECIMENOrdering Facility: [facility] Address: [address] [place] [address] Performed By: #### 5 8410-2 ####[facility] LABORATORYCLIA [id number] [place] [id number] [place] Platelets (Bld) [#/Vol] 304 10*3/uL Normal 150-400 [facility] Comment on above: Order Comment: Speci men Type: BLOOD SPECIMENOrdering Facility: [facility] Address: [address] [place] [address] Performed By: #### 5 8410-2 ####[facility] LABORATORYCLIA [id number] [place] [id number] [place] RBC (Bld) [#/Vol] 2.17 10*6/uL Low 3.90-5.20 [facility] Comment on above: Order Comment: Speci men Type: BLOOD SPECIMENOrdering Facility: [facility] Address: [address] [place] [address] Performed By: #### 5 8410-2 ####[facility] LABORATORYCLIA [id number] [place] [id number] [place] WBC (Bld) [#/Vol] 9.88 10*3/uL Normal 3.70-11.00 [facility] Comment on above: Order Comment: Speci men Type: BLOOD SPECIMENOrdering Facility: [facility] Address: [address] [place] [address] Performed By: #### 5 8410-2 ####[facility] LABORATORYCLIA [id number] [place] [id number] [place] CONSULT PROGon 08-30-2024 CONSULT PROG Normal [facility] Magnesium SerPl-mCncon 08-30 Magnesium [Mass/Vol] 2.2 mg/dL Normal 1.7-2.3 [facility] Comment on above: Order Comment: Speci men Type: BLOOD SPECIMENOrdering Facility: [facility] Address: [address] [place] [address] Performed By: #### 1 9123-9, 52138-8 ####WOOD LABORATORYCLIA [id number] [place] [id number] [place] NUTRITIONon 08-30-2024 NUTRITION Normal [facility] Renal function 2000 panelon 08-30-2024 Albumin [Mass/Vol] 2.9 g/dL Low 3.9-4.9 [facility] Comment on above: Order Comment: Speci men Type: BLOOD SPECIMENOrdering Facility: [facility] Address: [address] [place] [address] Performed By: #### 1 9123-9, 08941-0 ####WOOD LABORATORYCLIA [id number] [place] [id number] [place] Anion gap [Moles/Vol] 8 mmol/L Normal 8-15 [facility] Comment on above: Order Comment: Speci men Type: BLOOD SPECIMENOrdering Facility: [facility] Address: [address] [place] [address] Performed By: #### 1 9123-9, 88772-5 ####WOOD LABORATORYCLIA [id number] [place] [id number] [place] Calcium [Mass/Vol] 7.8 mg/dL Low 8.5-10.2 [facility] Comment on above: Order Comment: Speci men Type: BLOOD SPECIMENOrdering Facility: [facility] Address: [address] [place] [address] Performed By: #### 1 9123-9, 33684-5 ####WOOD LABORATORYCLIA [id number] [place] [id number] [place] Chloride [Moles/Vol] 107 mmol/L Normal 98-107 [facility] Comment on above: Order Comment: Speci men Type: BLOOD SPECIMENOrdering Facility: [facility] Address: [address] [place] [address] Performed By: #### 1 9123-9, 91997-7 ####EMMANUEL LABORATORYCLIA [id number] [place] [id number] [place] [facility] [place] CO2 [Moles/Vol] 25 mmol/L Normal 22-30 [facility] Comment on above: Order Comment: Speci men Type: BLOOD SPECIMENOrdering Facility: [facility] Address: [address] [place] [address] Performed By: #### 1 9123-9, 00388-3 ####EMMANUEL LABORATORYCLIA [id number] [address] Creatinine [Mass/Vol] 0.75 mg/dL Normal 0.58-0.96 [facility] Comment on above: Order Comment: Speci men Type: BLOOD SPECIMENOrdering Facility: [facility] Address: [address] [place] [address] Performed By: #### 1 9123-9, 33493-4 ####[facility] LABORATORYCLIA [id number] [address] Creatinine and Glomerular filtration rate.predicted panel (S/P/Bld) 88 mL/min/1.73m??? Normal >=60 [facility] Comment on above: Order Comment: Speci men Type: BLOOD SPECIMENOrdering Facility: [facility] Address: [address] [place] [address] Result Comment: Sana mated Glomerular Filtration Rate [...] actual GFR. Performed By: #### 1 9123-9, 70236-5 ####EMMANUEL LABORATORYCLIA [id number] [place] [address] [place] Glucose [Mass/Vol] 119 mg/dL High 74-99 [facility] Comment on above: Order Comment: Speci men Type: BLOOD SPECIMENOrdering Facility: [facility] Address: [address] [place] [address] Result Comment: The [place] [employer] (ADA) provides guidance for cutoff [...] Standards of Medical Care in Diabetes 2016, [place] [employer]. Diabetes Care. 2016.39(Suppl 1). Performed By: #### 1 9123-9, 32856-0 ####[facility] LABORATORYCLIA [id number] [place] [id number] [place] Phosphate [Mass/Vol] 2.6 mg/dL Low 2.7-4.8 [facility] Comment on above: Order Comment: Umesh baugh Type: BLOOD SPECIMENOrdering Facility: [facility] Address: [address] [place] [address] Performed By: #### 1 9123-9, 08497-5 ####[facility] LABORATORYCLIA [id number] [place] [id number] [place] Potassium [Moles/Vol] 4.2 mmol/L Normal 3.7-5.1 [facility] Comment on above: Order Comment: Abdouli men Type: BLOOD SPECIMENOrdering Facility: [facility] Address: [address] [place] [address] Performed By: #### 1 9123-9, 22007-4 ####[facility] LABORATORYCLIA [id number] [place] [id number] [place] Sodium [Moles/Vol] 140 mmol/L Normal 136-144 [facility] Comment on above: Order Comment: Speci men Type: BLOOD SPECIMENOrdering Facility: [facility] Address: [address] [place] [address] Performed By: #### 1 9123-9, 96491-2 ####[facility] LABORATORYCLIA [id number] [place] [address] [place] Urea nitrogen [Mass/Vol] 11 mg/dL Normal 7-21 [facility] Comment on above: Order Comment: Speci men Type: BLOOD SPECIMENOrdering Facility: [facility] Address: [address] [place] [address] Performed By: #### 1 9123-9, 70381-3 ####[facility] LABORATORYCLIA [id number] [place] [id number] [place] THERAPY NTon 08-30-2024 THERAPY NT Normal [facility] THERAPY NT Normal [facility] Basic metabolic 2000 panelon 08-29-2024 Anion gap [Moles/Vol] 10 mmol/L Normal 8-15 [facility] Comment on above: Order Comment: Speci men Type: BLOOD SPECIMENOrdering Facility: [facility] Address: [address] [place] [address] Performed By: #### 1 9123-9, 29547-2, 277-1 ####[facility] LABORATORYCLIA [id number] [place] [id number] [place] Calcium [Mass/Vol] 8.0 mg/dL Low 8.5-10.2 [facility] Comment on above: Order Comment: Speci men Type: BLOOD SPECIMENOrdering Facility: [facility] Address: [address] [place] [id number] Performed By: #### 1 9123-9, 18717-9, 2777-1 ####[facility] LABORATORYCLIA [id number] [place] [id number] [place] Chloride [Moles/Vol] 105 mmol/L Normal 98-107 [facility] Comment on above: Order Comment: Speci men Type: BLOOD SPECIMENOrdering Facility: [facility] Address: [address] [place] [id number] Performed By: #### 1 9123-9, 72099-1, 2776-03 ####[facility] LABORATORYCLIA [id number] [place] [id number] [place] CO2 [Moles/Vol] 23 mmol/L Normal 22-30 [facility] Comment on above: Order Comment: Speci men Type: BLOOD SPECIMENOrdering Facility: [facility] Address: [facility] [place] [address] Performed By: #### 1 9123-9, 18851-0, 2776-03 ####[facility] LABORATORYCLIA [id number] [place] [id number] [place] Creatinine [Mass/Vol] 0.56 mg/dL Low 0.58-0.96 [facility] Comment on above: Order Comment: Speci men Type: BLOOD SPECIMENOrdering Facility: [facility] Address: [address] [place] [address] Performed By: #### 1 9123-9, , 2776-03 ####[facility] LABORATORYCLIA [id number] [place] [id number] [place] Creatinine and Glomerular filtration rate.predicted panel (S/P/Bld) 101 mL/min/1.73m??? Normal >=60 [facility] Comment on above: Order Comment: Speci men Type: BLOOD SPECIMENOrdering Facility: [facility] Address: [address] [place] [address] Result Comment: Sana mated Glomerular Filtration Rate [...] actual GFR. Performed By: #### 1 9123-9, 06982-2, 2776-03 ####[facility] LABORATORYCLIA [id number] [place] [id number] [place] Glucose [Mass/Vol] 127 mg/dL High 74-99 [facility] Comment on above: Order Comment: Abdoulkhai baugh Type: BLOOD SPECIMENOrdering Facility: [facility] Address: [address] [place] [address] Result Comment: The [place] [employer] (ADA) provides guidance for cutoff [...] Standards of Medical Care in Diabetes 2016, [place] [employer]. Diabetes Care. 2016.39(Suppl 1). Performed By: #### 1 9123-9, 77892-3, 2776- ####[facility] LABORATORYCLIA [id number] [place] [address] [place] Potassium [Moles/Vol] 3.7 mmol/L Normal 3.7-5.1 [facility] Comment on above: Order Comment: Umesh lupis Type: BLOOD SPECIMENOrdering Facility: [facility] Address: [address] [place] [address] Performed By: #### 1 9123-9, 91495-3, 2776-03 ####[facility] LABORATORYCLIA [id number] [place] [id number] [place] Sodium [Moles/Vol] 138 mmol/L Normal 136-144 [facility] Comment on above: Order Comment: Abdoulkhai baugh Type: BLOOD SPECIMENOrdering Facility: [facility] Address: [address] [place] [address] Performed By: #### 1 9123-9, 35394-4, 2776-03 ####[facility] LABORATORYCLIA [id number] [place] [address] [place] Urea nitrogen [Mass/Vol] 13 mg/dL Normal 7-21 [facility] Comment on above: Order Comment: Speci men Type: BLOOD SPECIMENOrdering Facility: [facility] Address: [address] [place] [address] Performed By: #### 1 9123-9, 82396-1, 2777-1 ####[facility] LABORATORYCLIA [id number] [place] [address] [place] CASE MGT INIT ASSESon 2024 CASE MGT INIT ASSES Normal [facility] CBC W Auto Differential pane l (Bld)on 08-29-2024 Basophils (Bld) [#/Vol] 10*3/uL Normal <0.11 [facility] Comment on above: Order Comment: Speci men Type: BLOOD SPECIMENOrdering Facility: [facility] Address: [address] [place] [address] Performed By: #### 5 7021-8 ####[facility] LABORATORYCLIA [id number] [place] [address] [place] Basophils/100 WBC (Bld) 0.1 % Normal [facility] Comment on above: Order Comment: Speci men Type: BLOOD SPECIMENOrdering Facility: [facility] Address: [address] [place] [address] Performed By: #### 5 7021-8 ####[facility] LABORATORYCLIA [id number] [place] [address] [place] Differential cell count method Nom (Bld) Auto Normal [facility] Comment on above: Order Comment: Speci men Type: BLOOD SPECIMENOrdering Facility: [facility] Address: [address] [place] [address] Performed By: #### 5 7021-8 ####[facility] LABORATORYCLIA [id number] [place] [id number] [place] Eosinophils (Bld) [#/Vol] 10*3/uL Normal <0.46 [facility] Comment on above: Order Comment: Speci men Type: BLOOD SPECIMENOrdering Facility: [facility] Address: [address] [place] [address] Performed By: #### 5 7021-8 ####[facility] LABORATORYCLIA [id number] [place] [address] [place] Eosinophils/100 WBC (Bld) 0.0 % Normal [facility] Comment on above: Order Comment: Speci men Type: BLOOD SPECIMENOrdering Facility: [facility] Address: [address] [place] [address] Performed By: #### 5 7021-8 ####[facility] LABORATORYCLIA [id number] [place] [address] [place] Erythrocyte distribution width (RBC) [Ratio] 13.2 % Normal 11.5-15.0 [facility] Comment on above: Order Comment: Speci men Type: BLOOD SPECIMENOrdering Facility: [facility] Address: [address] [place] [address] Performed By: #### 5 7021-8 ####[facility] LABORATORYCLIA [id number] [place] [address] [place] Hematocrit (Bld) [Volume fraction] 24.9 % Low 36.0-46.0 [facility] Comment on above: Order Comment: Speci men Type: BLOOD SPECIMENOrdering Facility: [facility] Address: [address] [place] [address] Performed By: #### 5 7021-8 ####[facility] LABORATORYCLIA [id number] [address] [place] Hemoglobin (Bld) [Mass/Vol] 8.2 g/dL Low 11.5-15.5 [facility] Comment on above: Order Comment: Speci men Type: BLOOD SPECIMENOrdering Facility: [facility] Address: [address] [place] [address] Performed By: #### 5 7021-8 ####[facility] LABORATORYCLIA [id number] [address] [place] Immature granulocytes (Bld) [#/Vol] 0.04 10*3/uL Normal <0.10 [facility] Comment on above: Order Comment: Speci men Type: BLOOD SPECIMENOrdering Facility: [facility] Address: [address] [place] [address] Performed By: #### 5 7021-8 ####[facility] LABORATORYCLIA [id number] [place] [address] [place] Immature granulocytes/100 WBC (Bld) 0.4 % Normal [facility] Comment on above: Order Comment: Speci men Type: BLOOD SPECIMENOrdering Facility: [facility] Address: [address] [place] [address] Performed By: #### 5 7021-8 ####[facility] LABORATORYCLIA [id number] [place] [address] [place] Lymphocytes (Bld) [#/Vol] 1.04 10*3/uL Normal 1.00-4.00 [facility] Comment on above: Order Comment: Speci men Type: BLOOD SPECIMENOrdering Facility: [facility] Address: [address] [place] [address] Performed By: #### 5 7021-8 ####[facility] LABORATORYCLIA [id number] [address] [place] Lymphocytes/100 WBC (Bld) 10.3 % Normal [facility] Comment on above: Order Comment: Speci men Type: BLOOD SPECIMENOrdering Facility: [facility] Address: [address] [place] [address] Performed By: #### 5 7021-8 ####[facility] LABORATORYCLIA [id number] [place] [id number] [place] MCH (RBC) [Entitic mass] 32.9 pg Normal 26.0-34.0 [facility] Comment on above: Order Comment: Speci men Type: BLOOD SPECIMENOrdering Facility: [facility] Address: [address] [place] [address] Performed By: #### 5 7021-8 ####[facility] LABORATORYCLIA [id number] [address] [place] MCHC (RBC) [Mass/Vol] 32.9 g/dL Normal 30.5-36.0 [facility] Comment on above: Order Comment: Speci men Type: BLOOD SPECIMENOrdering Facility: [facility] Address: [address] [place] [address] Performed By: #### 5 7021-8 ####[facility] LABORATORYCLIA [id number] [place] [id number] [place] MCV (RBC) [Entitic vol] 100.0 fL Normal 80.0-100.0 [facility] Comment on above: Order Comment: Speci men Type: BLOOD SPECIMENOrdering Facility: [facility] Address: [address] [place] [address] Performed By: #### 5 7021-8 ####[facility] LABORATORYCLIA [id number] [place] [id number] [place] Monocytes (Bld) [#/Vol] 1.10 10*3/uL High <0.87 [facility] Comment on above: Order Comment: Speci men Type: BLOOD SPECIMENOrdering Facility: [facility] Address: [address] [place] [address] Performed By: #### 5 7021-8 ####[facility] LABORATORYCLIA [id number] [place] [address] [place] Monocytes/100 WBC (Bld) 10.9 % Normal [facility] Comment on above: Order Comment: Speci men Type: BLOOD SPECIMENOrdering Facility: [facility] Address: [address] [place] [address] Performed By: #### 5 7021-8 ####[facility] LABORATORYCLIA [id number] [place] [id number] [place] Neutrophils (Bld) [#/Vol] 7.90 10*3/uL High 1.45-7.50 [facility] Comment on above: Order Comment: Speci men Type: BLOOD SPECIMENOrdering Facility: [facility] Address: [address] [place] [address] Performed By: #### 5 7021-8 ####[facility] LABORATORYCLIA [id number] [place] [id number] [place] Neutrophils/100 WBC (Bld) 78.3 % Normal [facility] Comment on above: Order Comment: Speci men Type: BLOOD SPECIMENOrdering Facility: [facility] Address: [address] [place] [address] Performed By: #### 5 7021-8 ####EM[facility] LABORATORYCLIA [id number] [place] [id number] [place] Nucleated RBC (Bld) [#/Vol] 10*3/uL Normal <0.01 [facility] Comment on above: Order Comment: Speci men Type: BLOOD SPECIMENOrdering Facility: [facility] Address: [address] [place] [address] Performed By: #### 5 7021-8 ####EM[facility] LABORATORYCLIA [id number] [place] [id number] [place] Nucleated RBC/100 WBC (Bld) [Ratio] 0.0 /100 WBC Normal [facility] Comment on above: Order Comment: Speci men Type: BLOOD SPECIMENOrdering Facility: [facility] Address: [address] [place] [address] Performed By: #### 5 7021-8 ####EM[facility] LABORATORYCLIA [id number] [place] [address] [place] Platelet mean volume (Bld) [Entitic vol] 9.6 fL Normal 9.0-12.7 [facility] Comment on above: Order Comment: Speci men Type: BLOOD SPECIMENOrdering Facility: [facility] Address: [address] [place] [address] Performed By: #### 5 7021-8 ####EM[facility] LABORATORYCLIA [id number] [place] [id number] [place] Platelets (Bld) [#/Vol] 341 10*3/uL Normal 150-400 [facility] Comment on above: Order Comment: Speci men Type: BLOOD SPECIMENOrdering Facility: [facility] Address: [address] [place] [address] Performed By: #### 5 7021-8 ####[facility] LABORATORYCLIA [id number] [place] [id number] [place] RBC (Bld) [#/Vol] 2.49 10*6/uL Low 3.90-5.20 [facility] Comment on above: Order Comment: Speci men Type: BLOOD SPECIMENOrdering Facility: [facility] Address: [address] [place] [address] Performed By: #### 5 7021-8 ####[facility] LABORATORYCLIA [id number] [place] [id number] [place] WBC (Bld) [#/Vol] 10.09 10*3/uL Normal 3.70-11.00 [facility] Comment on above: Order Comment: Speci men Type: BLOOD SPECIMENOrdering Facility: [facility] Address: [address] [place] [address] Performed By: #### 5 7021-8 ####EM[facility] LABORATORYCLIA [id number] [place] [id number] [place] CONSULT PROGon 08-29-2024 CONSULT PROG Normal [facility] Magnesium SerPl-mCncon 08-29 Magnesium [Mass/Vol] 1.7 mg/dL Normal 1.7-2.3 [facility] Comment on above: Order Comment: Speci men Type: BLOOD SPECIMENOrdering Facility: [facility] Address: [address] [place] [address] Performed By: #### 1 9123-9, 77528-3, 2777-1 ####EM[facility] LABORATORYCLIA [id number] [place] [id number] [facility] [place] NURSING PROGon 08-29-2024 NURSING PROG Normal [facility] NURSING PROG Normal [facility] NUTRITIONon 08-29-2024 NUTRITION Normal [facility] NUTRITION Normal [facility] Phosphate SerPl-mCncon 08-29 Phosphate [Mass/Vol] 3.0 mg/dL Normal 2.7-4.8 [facility] Comment on above: Order Comment: Speci men Type: BLOOD SPECIMENOrdering Facility: [facility] Address: [address] [place] [address] Performed By: #### 1 9123-9, 89146-9, 2777-1 ####EM[facility] LABORATORYCLIA [id number] [place] [id number] [place] THERAPY NTon 08-29-2024 THERAPY NT Normal [facility] THERAPY NT Normal [facility] ANES POSTPROC EVALon 025 ANES POSTPROC EVAL Normal [facility] ANES PRE-OPon 08-28-2024 ANES PRE-OP Normal [facility] BRIEF OP NOTon 08-28-2024 BRIEF OP NOT Normal [facility] Basic metabolic 2000 panelon 08-28-2024 Anion gap [Moles/Vol] 13 mmol/L Normal 8-15 [facility] Comment on above: Order Comment: Speci men Type: BLOOD SPECIMENOrdering Facility: [facility] Address: [address] [place] [address] Performed By: #### 2 4321-2 ####[facility] LABORATORYCLIA [id number] [place] [address] [place] Calcium [Mass/Vol] 7.7 mg/dL Low 8.5-10.2 [facility] Comment on above: Order Comment: Speci men Type: BLOOD SPECIMENOrdering Facility: [facility] Address: [address] [place] [address] Performed By: #### 2 4321-2 ####[facility] LABORATORYCLIA [id number] [place] [id number] [place] Chloride [Moles/Vol] 104 mmol/L Normal 98-107 [facility] Comment on above: Order Comment: Speci men Type: BLOOD SPECIMENOrdering Facility: [facility] Address: [address] [place] [address] Performed By: #### 2 4321-2 ####[facility] LABORATORYCLIA [id number] [place] [id number] [place] CO2 [Moles/Vol] 20 mmol/L Low 22-30 [facility] Comment on above: Order Comment: Speci men Type: BLOOD SPECIMENOrdering Facility: [facility] Address: [address] [place] [address] Performed By: #### 2 4321-2 ####[facility] LABORATORYCLIA [id number] [place] [address] [place] Creatinine [Mass/Vol] 0.51 mg/dL Low 0.58-0.96 [facility] Comment on above: Order Comment: Umesh baugh Type: BLOOD SPECIMENOrdering Facility: [facility] Address: [address] [place] [address] Performed By: #### 2 4321-2 ####EM[facility] LABORATORYCLIA [id number] [place] [id number] [place] Creatinine and Glomerular filtration rate.predicted panel (S/P/Bld) 104 mL/min/1.73m??? Normal >=60 [facility] Comment on above: Order Comment: Umesh baugh Type: BLOOD SPECIMENOrdering Facility: [facility] Address: [address] [place] [address] Result Comment: Sana mated Glomerular Filtration Rate [...] actual GFR. Performed By: #### 2 4321-2 ####EMMAN[facility]EL LABORATORYCLIA [id number] [place] [id number] [place] Glucose [Mass/Vol] 196 mg/dL High 74-99 [facility] Comment on above: Order Comment: Umesh baugh Type: BLOOD SPECIMENOrdering Facility: [facility] Address: [address] [place] [address] Result Comment: The [place] [employer] (ADA) provides guidance for cutoff [...] Standards of Medical Care in Diabetes 2016, [place] [employer]. Diabetes Care. 2016.39(Suppl 1). Performed By: #### 2 4321-2 ####WO[facility] LABORATORYCLIA [id number] [place] [id number] [place] Potassium [Moles/Vol] 4.2 mmol/L Normal 3.7-5.1 [facility] Comment on above: Order Comment: Speci men Type: BLOOD SPECIMENOrdering Facility: [facility] Address: [address] [place] [address] Performed By: #### 2 4321-2 ####WO[facility] LABORATORYCLIA [id number] [place] [id number] [place] Sodium [Moles/Vol] 137 mmol/L Normal 136-144 [facility] Comment on above: Order Comment: Speci men Type: BLOOD SPECIMENOrdering Facility: [facility] Address: [address] [place] [address] Performed By: #### 2 4321-2 ####WO[facility] LABORATORYCLIA [id number] [place] [id number] [place] Urea nitrogen [Mass/Vol] 12 mg/dL Normal 7-21 [facility] Comment on above: Order Comment: Speci men Type: BLOOD SPECIMENOrdering Facility: [facility] Address: [address] [place] [address] Performed By: #### 2 4321-2 ####WOOD LABORATORYCLIA [id number] [place] [id number] [facility] CBC panel Auto (Bld)on 08-28 Erythrocyte distribution width (RBC) [Ratio] 13.2 % Normal 11.5-15.0 [facility] Comment on above: Order Comment: Speci men Type: BLOOD SPECIMENOrdering Facility: [facility] Address: [address] [place] [address] Performed By: #### 5 8410-2 ####WOOD LABORATORYCLIA [id number] [place] [id number] [facility] [place] Hematocrit (Bld) [Volume fraction] 26.4 % Low 36.0-46.0 [facility] Comment on above: Order Comment: Speci men Type: BLOOD SPECIMENOrdering Facility: [facility] Address: [address] [place] [address] Performed By: #### 5 8410-2 ####EM[facility] LABORATORYCLIA [id number] [place] [address] [place] Hemoglobin (Bld) [Mass/Vol] 9.0 g/dL Low 11.5-15.5 [facility] Comment on above: Order Comment: Speci men Type: BLOOD SPECIMENOrdering Facility: [facility] Address: [address] [place] [address] Performed By: #### 5 8410-2 ####EMMAN[facility]EL LABORATORYCLIA [id number] [place] [address] [place] MCH (RBC) [Entitic mass] 33.3 pg Normal 26.0-34.0 [facility] Comment on above: Order Comment: Speci men Type: BLOOD SPECIMENOrdering Facility: [facility] Address: [address] [place] [address] Performed By: #### 5 8410-2 ####EM[facility]EL LABORATORYCLIA [id number] [place] [address] [place] MCHC (RBC) [Mass/Vol] 34.1 g/dL Normal 30.5-36.0 [facility] Comment on above: Order Comment: Speci men Type: BLOOD SPECIMENOrdering Facility: [facility] Address: [address] [place] [address] Performed By: #### 5 8410-2 ####EMMANUEL LABORATORYCLIA [id number] [place] [address] [place] MCV (RBC) [Entitic vol] 97.8 fL Normal 80.0-100.0 [facility] Comment on above: Order Comment: Speci men Type: BLOOD SPECIMENOrdering Facility: [facility] Address: [address] [place] [address] Performed By: #### 5 8410-2 ####WOOD LABORATORYCLIA [id number] [place] [id number] [place] Nucleated RBC (Bld) [#/Vol] 10*3/uL Normal <0.01 [facility] Comment on above: Order Comment: Speci men Type: BLOOD SPECIMENOrdering Facility: [facility] Address: [address] [place] [address] Performed By: #### 5 8410-2 ####WOOD LABORATORYCLIA [id number] [place] [address] [place] Platelet mean volume (Bld) [Entitic vol] 9.5 fL Normal 9.0-12.7 [facility] Comment on above: Order Comment: Speci men Type: BLOOD SPECIMENOrdering Facility: [facility] Address: [address] [place] [address] Performed By: #### 5 8410-2 ####WOOD LABORATORYCLIA [id number] [place] [id number] [place] Platelets (Bld) [#/Vol] 358 10*3/uL Normal 150-400 [facility] Comment on above: Order Comment: Speci men Type: BLOOD SPECIMENOrdering Facility: [facility] Address: [address] [place] [address] Performed By: #### 5 8410-2 ####WOOD LABORATORYCLIA [id number] [place] [address] [place] RBC (Bld) [#/Vol] 2.70 10*6/uL Low 3.90-5.20 [facility] Comment on above: Order Comment: Speci men Type: BLOOD SPECIMENOrdering Facility: [facility] Address: [address] [place] [address] Performed By: #### 5 8410-2 ####WOOD LABORATORYCLIA [id number] [place] [id number] [place] WBC (Bld) [#/Vol] 11.10 10*3/uL High 3.70-11.00 [facility] Comment on above: Order Comment: Speci men Type: BLOOD SPECIMENOrdering Facility: [facility] Address: [address] [place] [address] Performed By: #### 5 8410-2 ####WOOD LABORATORYCLIA [id number] [place] [address] [place] HER2 BY IHC NON BREASTon AP BIOMARKER DISCLAIMER Normal [facility] Comment on above: Order Comment: Speci men Type: TISSUE SPECIMENOrdering Facility: [facility] Address: [address] [place] [address] Result Comment: Vero voss Developed Test (LDT) Disclaimer:Performance characteristics of immunohistochemical, immunofluorescent, and chromogenic in-situ hybridization tests have been determined by the performing laboratory within the [facility] Department of Pathology and Laboratory Medicine ([facility], [facility], [facility], [facility], [facility], [facility], or [facility]) in a manner consistent with CLIA requirements. One or more of these tests may not have been cleared or approved by the FDA. The [facility] Department of Pathology and Laboratory Medicine is regulated under CLIA as qualified to perform high-complexity testing. These tests are used for clinical purposes. These should not be regarded as investigational or for research. Positive and negative controls stain appropriately. Performed By: #### L [id number] ####[facility] LABCLIA [id number] [place] [address] [place] AP BLOCK ID [id number] Normal [facility] Comment on above: Order Comment: Speci men Type: TISSUE SPECIMENOrdering Facility: [facility] Address: [address] [place] [address] Performed By: #### L [id number] ####[facility] LABIA [id number] [place] [address] [place] BIOMARKER INTERPRETATION COMMENT AND REFERENCE [facility] Comment on above: Order Comment: Speci men Type: TISSUE SPECIMENOrdering Facility: [facility] Address: [address] [place] [address] Result Comment: Refe rence Ranges HER2 immunohistochemistry:Positive:Intense [...] validation study. Mod Pathol. 2015 Jan;28(11):1481-91. PMID: [id number]. Performed By: #### L [id number] ####[facility] HOSPITALIA [id number] [address] [place] BIOMARKER METHOD Normal [facility] Comment on above: Order Comment: Speci men Type: TISSUE SPECIMENOrdering Facility: [facility] Address: [address] [place] [address] Result Comment: HER2 (ERBB2) by IHC:FDA cleared: [employer], [facility], [place] Antibody:6W4Kreostul and Detection System: [employer] Pathway anti-HER2 rabbit monoclonal antibody (clone 4B5), were detected with the [employer] iView Detection System (indirect biotin streptavidin detection); [place], [place]. Performed By: #### L [id number] ####[facility] LABIA [id number] [address] OF [facility] CASE NUMBER HER2 [id number] Normal [facility] Comment on above: Order Comment: Speci men Type: TISSUE SPECIMENOrdering Facility: [facility] Address: [address] [place] [address] Performed By: #### L [id number] ####[facility] LABCLIA [id number] [address] [place] [address] [place] FINAL PERFORMING LAB Normal [facility] Comment on above: Order Comment: Speci men Type: TISSUE SPECIMENOrdering Facility: [facility] Address: [address] [place] [address] Result Comment: Diag nostic interpretation performed at: [facility], [address] [place] [address] CLIA# [id number] Director: Marky Christian MDElectronically signed out by: Rd Woodall MD Performed By: #### L [id number] ####[facility] LABCLIA [id number] [address] [place] [address] [place] FIXATIVE Formalin, 10% Neutra l [facility] Comment on above: Order Comment: Speci men Type: TISSUE SPECIMENOrdering Facility: [facility] Address: [address] [place], [place] [address] Performed By: #### L [id number] ####[facility] LABCLIA [id number] [address] [address] [place] HER2 SCORE (COLON) 1+ Normal [facility] Comment on above: Order Comment: Speci men Type: TISSUE SPECIMENOrdering Facility: [facility] Address: [address] [place], [place] [address] Performed By: #### L [id number] ####[facility] LABCLIA [id number] [address] [place] [address] [place] HER2 STATUS FOR COLON Negative Normal [facility] Comment on above: Order Comment: Speci men Type: TISSUE SPECIMENOrdering Facility: [facility] Address: [address] [place] [address] Performed By: #### L [id number] ####[facility] LABCLIA [id number] [address] [place] [address] [place] TUMOR TYPE (NON BREAST) Metastatic Colorectal Adenocarcinoma Normal [facility] Comment on above: Order Comment: Speci men Type: TISSUE SPECIMENOrdering Facility: [facility] Address: [address] [place] [address] Performed By: #### L [id number] ####[facility] LABCLIA [id number] [address] [place] NURSING PROGon 08-28-2024 NURSING PROG [facility] OPERATIVE NOon 08-28-2024 OPERATIVE NO [facility] Pathology biopsy report Cordell (Tiss)on 08-28-2024 AP DISCLAIMER Normal [facility] Comment on above: Order Comment: Umesh [facility] Type: TISSUE SPECIMENOrdering Facility: [facility] Address: [address] [place] [address] Result Comment: Vero voss Developed Test (LDT) Disclaimer:Performance characteristics of immunohistochemical, immunofluorescent, and chromogenic in-situ hybridization tests have been determined by the performing laboratory within [facility]'s [facility] Pathology and Laboratory Medicine Department ([facility], [facility], [facility], [facility], [facility], [facility], or [facility]) in a manner consistent with CLIA requirements. One or more of these tests may not have been cleared or approved by the FDA. [facility] is regulated under CLIA as qualified to perform high-complexity testing. These tests are used for clinical purposes. These should not be regarded as investigational or for research. Positive and negative controls stain appropriately. Performed By: #### 6 6121-5 ####WOOD LABORATORYCLIA [id number] [place] [id number] [facility] [place] CASE REPORT Normal [facility] Comment on above: Order Comment: Speci men Type: TISSUE SPECIMENOrdering Facility: [facility] Address: [address] [place] [address] Result Comment: Surg ical Pathology Report Case: [id number] Provider: Tessa Spring MD Collected: 08/28/2024 10:57 AMOrdering Location: [facility] Received: 08/28/2024 03:21 PM Operating RoomPathologist: Jimbo [place] MDSpecimens: A) - Ovary, Right, Resection B) - Soft Tissue, Mass, Resection, Right Rectoperitoneal mass C) - Margin, Excision, Ileac Margin D) - Mesentery, Additional Mesentary nodule E) - Colon and Small Bowel, Right Hemicolectomy Performed By: #### 6 6121-5 ####[facility] HOSPITALIA [id number] [address] CLINICAL HISTORY Normal [facility] Comment on above: Order Comment: Speci men Type: TISSUE SPECIMENOrdering Facility: [facility] Address: [address] [place] [address] Result Comment: Pre- op diagnosis:Malignant neoplasm of ascending colon (HCC) [C18.2] Performed By: #### 6 6121-5 ####WOOD LABORATORYCLIA [id number] [address] DIAGNOSIS COMMENT Normal [facility] Comment on above: Order Comment: Speci men Type: TISSUE SPECIMENOrdering Facility: [facility] Address: [address] [place] [address] Result Comment: A. I mmunohistochemical stains have [...] Gynecologic Pathology. Performed By: #### 6 6121-5 ####WOOD LABORATORYCLIA [id number] [address] FINAL DIAGNOSIS [facility] Comment on above: Order Comment: Speci [facility] Type: TISSUE SPECIMENOrdering Facility: [facility] Address: [address] [place] [address] Result Comment: Armando glass designated right ovary, excision:- Leiomyoma (see comment).- Metastatic adenocarcinoma, morphologically consistent with colonic primary, involving peritoneal surface.- No ovarian parenchyma identified in pharmaceutical representative sections.B. Right retroperitoneal mass, resection:- Recurrent/metastatic [...] 1105 EDT Performed By: #### 6 6121-5 ####WOOD LABORATORYCLIA [id number] [address] OF [facility] FINAL PERFORMING LAB Normal [facility] Comment on above: Order Comment: Speci men Type: TISSUE SPECIMENOrdering Facility: [facility] Address: [address] [place] [address] Result Comment: Diag nostic interpretation performed at: [facility], [address] [place] [address] CLIA# [id number] Director: Sana Freeman MD Performed By: #### 6 6121-5 ####WOOD LABORATORYCLIA [id number] [address] STATES [facility] GROSS DESCRIPTION Normal [facility] Comment on above: Order Comment: Speci men Type: TISSUE SPECIMENOrdering Facility: [facility] Address: [address] [place] [address] Result Comment: A. O vary, Right, ResectionReceived in formalin designated right ovary resection is a dominguez-white bosselated nodule that measures 4.5 x 2.9 x 2.1 cm and weighs 18 g. Sectioning through the nodule reveals dominguez-white whirled and homogeneous cut surfaces. Ovarian parenchyma is not identified. Ad Operations Coordinator sections are submitted in three cassettes.WE August 29, 2024 12:17 PMGross examination performed at [facility], [address] [place], [place] [address]. Soft Tissue, Mass, ResectionReceived in formalin designated right retroperitoneal mass is a domingeuz ragged mass that measures 5.9 x 5.5 [...] ovary reveals dominguez-white and granular cut surfaces. Ad Operations Coordinator sections are submitted as follows: B1-B5 mass with outer surface inked black, B6 possible fallopian tube, B7 possible ovary, B8 pharmaceutical representative sections of lymph node.WE August 29, 2024 11:01 AMGross examination performed at [facility], [address] [place], [place] [address]. Margin, ExcisionReceived in formalin designated iliac margin is an unoriented dominguez-kennedy fragment of fibrous tissue that measures 1.3 x 1 x 0.6 cm. The specimen is entirely submitted in one cassette.WE August 29, 2024 12:17 PMGross examination performed at [facility], [address] [place], [place] [address]. MesenteryReceived in formalin designated additional mesentery nodule is a dominguez-yellow rubbery and lobulated portion of mesentery that measures 3.5 x 1.3 x 1.2 cm. The mesenteric margin is inked black. Sectioning through the mesentery reveals a dominguez-white granular nodule that measures 0.6 x 0.6 x 0.4 cm. The nodule is located 0.2 cm from the mesenteric resection margin. Ad Operations Coordinator sections are submitted in one cassette.WE August 29, 2024 12:21 PMGross examination performed at [facility], [address] [place], [place] [address]. Colon and Small Bowel, Right HemicolectomyReceived in [...] with a wall thickness of 0.4 cm. Ad Operations Coordinator sections are submitted as follows: E1 proximal [...] 29, 2024 11:35 AMGross examination performed at [facility], [address] [place] [id number] Performed By: #### 6 6121-5 ####WOOD LABORATORYCLIA [id number] [place] [address] [place] TARGETED ONCOLOGY PANEL NEXT GENERATION SEQUENCING OTHERon 08-28-2024 TARGETED ONCOLOGY PANEL NEXT GENERATION SEQUENCING OTHER Normal [facility] Comment on above: Order Comment: Speci men Type: TISSUE SPECIMENOrdering Facility: [facility] Address: [address] [place] [address] Result Comment: [facility] Targeted Oncology PanelLaboratory Accession Number: [id number] #: [id number] #: [id number] Type: FFPET% Tumor: 50CASE SUMMARY:No clinically significant [...] uncertain significance detected:None detectedRegions with coverage <100x:MTOR:NM_[id number]:Ex40 chr1:[id number] Range: 87-92METHODOLOGY:Extracted nucleic acid from the specimen, both DNA and RNA, weresubjected to separate targeted amplification reactions, using [employer] primers designed by [employer] ([employer], [place], [place]). Hotspots and selected fusions in generegions listed below were sequenced using Illumina ([place], [place])2x150 paired-end cycle chemistry. A customized bioinformaticsanalytical platform was used for read alignment (Genome LygxrHCVo92/hg19), variant identification and annotation. Single nucleotidevariants (SNVs), [...] NM_000044 6, 8BRAF NM_004333 11, 15CDK4 NM_000075 9PYZUM2 NM_001904 3, 7-8DDR2 NM_006182 5EGFR NM_005228 3, 7, 12, 15, 18-32WTFF1 NM_004448 8, 17-00PZQD9 NM_001982 2-3, 6, 8-9ERBB4 NM_005235 18ESR1 NM_000125 8FGFR1 NM_023110 12-14, 16-81VKIF0 NM_000141 7-9, 12, 07FLQQ5 NM_000142 7, 9, 14, 89BJG01 NM_002067 4, 5GNAQ NM_002072 4, 5GNAS NM_080425 8H3-3A NM_002107 2H3-3B NM_005324 2HRAS NM_005343 2,3IDH1 NM_005896 4IDH2 NM_002168 4JAK1 NM_002227 14-16JAK2 NM_004972 14JAK3 NM_000215 11-12, 15KIT NM_000222 8-11, 13, 17KRAS NM_033360 2-8DRD9T2 NM_002755 2-3, 5NUK1V4 NM_030662 2MET NM_000245 14, 16, 19MTOR NM_004958 30, 39-40, 43, 47, 53NRAS NM_002524 2-4PDGFRA NM_006206 12, 14, 40KIG6ZB NM_006218 2, 5-6, 8, 10, 14, 19, 21RAF1 NM_002880 7, 12RET NM_020975 11, 13, 15-16ROS1 NM_002944 36, 38SMO NM_005631 4, 6, 8-9TERT NM_198253 KmsqhxbnVE79 NM_000546 5, 7, 8*Only hotspots within designated exons are covered, full exons are notsequenced.Genes reported for copy number gains: ALK, AR BRAF, CCND1, CDK4, CDK6,EGFR, ERBB2, FGFR1, FGFR2, FGFR3, FGFR4, KIT, KRAS, MET, MYC, MYCN,PDGFRA, HTI5ZWCoyjemg detected in RNA:Gene Detected FusionsABL1 EML1::MNN0IAW7 MAGI3::RTR9YQM A2M::ALK, ACTG2::ALK, ALK::PTPN3, ATIC::ALK, P1wfk55::ALK, CARS::ALK, CLIP4::ALK, CLTC::ALK, DCTN1::ALK, EML4::ALK, UAU4IVT9::ALK, HIP1::ALK, KIF5B::ALK, KLC1::ALK, MEMO1::ALK, NCOA1::ALK, XCLIO7L::ALK, RANBBP2::ALK, TJA55S9_AIC80T::ALK, SMEK2::ALK, STRN::ALK, TFG::ALK, TPM1::ALK, TPM3::ALK, TPM4::ALK, TPR::ALK, TRAF1::ALK, VCL::ALKAXL ROMERO::MBIPBRAF AGTRAP:BRAF, AKAP9::BRAF, CDC27::BRAF, NIA826U::BRAF, FCHSD1::BRAF, RZIP3535::BRAF, PAPSS1::BRAF, SVB21X9::BRAF, SND1::BRAF, UCK0ZR4::BRAF, TRIM24::BRAFEGFR EGFR vIII transcriptERBB2 WIPF2::APCD2FPX GJY62L2:ERG, TMPRSS2:ERGFGFR1 BAG4::FGFR1, ERLIN2::FGFR1, FGFR1::SWTN3AGYI8 FGFR2::AFF3, FGFR2::BICC1, FGFR2::CASP7, FGFR2::CIT, FGFR2::GLWN1276_AQUA3, FGFR2::MGEA5, FGFR2::OFD1, FGFR2::TACC1, CDP21Q7::KUKC4HSLY9 FGFR3::AES, FGFR3::TWICE3U6, FGFR3::ELAVL3, FGFR3::RLIP3XTE MET Exon 14 Skipping, UOPJU9D9::MET, Q4hhk36::MET, CAPZA2::MET, OXR1::MET, TFG::MET, TPR::MET, PTPRZ1::METNTRK1 BCAN::NTRK1, CD74::NTRK1, REX::NTRK1, KXK4WU8::NTRK1, LMNA::NTRK1, MPRIP::NTRK1, NFASC::NTRK1, NTRK1::AYIU6Z7, XVS330::NTRK1, SQSTM1::NTRK1, SSBP2::NTRK1, TFG::NTRK1, TPM3::NTRK1, TPR::QJDN8TUGH5 AFAP1::NTRK2, AGBL4::NTRK2, NACC2::NTRK2, QKI::NTRK2, SQSTM1::NTRK2, TRIM24::NTRK2, VCL::YTCI4HXOK6 BTBD1::NTRK3, COX5A::NTRK3, ETV6::GTJZ3NAMSQN SCAF11::PDGFRAPPARG PAX8::PPARGRAF1 T5ASMV7::RAF1, ESRP1::WWZ8LOQV Z24tnm10::RELARET ACBD5::RET, AFAP1::RET, AKAP13::RET, CCDC6::RET, CUX1::RET, ERC1::RET, FKBP15::RET, GOLGA5::RET, HOOK3::RET, QPMC0960::RET, KIF5B::RET, KTN1::RET, NCOA4::RET, PCM1::RET, GGAKP4R::RET, RUFY2::RET, XLGOP7Z::RET, HFH6TX8::RET, TRIM24::RET, TRIM27::RET, TRIM33::RETROS1 CCDC6:ROS1, CD74::ROS1, CEP85L::ROS1, CLIP1::ROS1, CLTC::ROS1, ERC1::ROS1, EZR::ROS1, GOPC::ROS1, HLA_A::ROS1, KDELR2::ROS1, EJXK7975::ROS1, LRIG3::ROS1, MSN::ROS1, MYO5A::ROS1, PPFIBP1::ROS1, PWWP2A::ROS1, SDC4::ROS1, LZM16N4::ROS1, TFG::ROS1, TPM3::ROS1, ZCCHC8::KBD8NWDTNX9 TMPRSS2::ERG, TMPRSS2::ETV1, TMPRSS2::ETV4, TMPRSS2::OFX4ORRLFZIOTR:1) Calderon MM, et al. Standards and Guidelines for the Interpretation andReporting of Sequence Variants in Cancer: A Joint ConsensusRecommendation of the Association for Molecular Pathology, [facility] Hospitalety of Clinical Oncology, and College of [place] Pathologists. JMol Diagn. 2017 Mar;19(1):4-23. doi: 10.1016/j.jmoldx.2016.10.002.PMID: 94483470; PMCID: ALC3965937.2) Mat Fajardo, Lazaro SA, Leo AM. Recurrent gene fusions inprostate cancer. Chelsy Rev Cancer. 2008 Sep;8(7):497-511. doi:10.1038/obu0796. Epub 2007Sep 12. PMID: 25687898; PMCID: ZDX6314371.3) Brant SC, Fady LA. The genomic landscape of prostate cancer.Front Endocrinol ([facility]). 2011August 09;3:69. doi:10.3389/fendo.2012.75377. PMID: 75531815; CTK8015426.4) Dwaine C, et al. Breast Cancer Genomics: Primary and Most CommonMetastases. Cancers ([facility]el). 2021Sep 14;14(13):3046. doi:10.3390/uzvvaph19913453. PMID: 58882408; PMCID: FOY4123849.5) [place] Miranda, Urbano SU, CJ. Information Assurance Analyst Oncogenes but Not as We KnowThem: Targetable Fusion Genes in Breast Cancer. Cancer Discov. 2018May;8(3):272-275. doi: 10.4388/0776-1297.CD-18-0091. PMID: 88902254;PMCID: LFO0061164.6) Gera A, Krystian J, Po JW, Serafin N, Chidi T, Garett CS. The GenomicLandscape of Thyroid Cancer Tumourigenesis and Implications forImmunotherapy. Cells. 2020July 25;10(5):1082. doi:10.3390/lzyjk53856959. PMID: 60917054; PMCID: EKW8662097.7) Latesha GALARZA, et al. Molecular Biomarkers for the Evaluation ofColorectal Cancer: Guideline From the [place] Society for ClinicalPathology, College of [place] Pathologists, Association for MolecularPathology, and the [place] Society of Clinical Oncology. J ClinOncol. 2017 July 25;35(13):5972-7270. doi: 10.1200/JCO.2016.71.9807.Epub 2016May 02. PMID: 90234945.8) Margarita ROJAS, et al. Updated Molecular Testing Guideline for theSelection of Lung Cancer Patients for Treatment With Targeted TyrosineKinase Inhibitors: Guideline From the College of AmericanPathologists, the International Association for the Study of LungCancer, and the Association for Molecular Pathology. Arch Pathol LabMed. 2018 May;142(3):321-346. doi: 10.5858/arpa.7050-4037-LW. Iyii8108 Apr 17. PMID: 13076270.9) Cancer Genome [place] Research Network. Comprehensive genomiccharacterization defines human glioblastoma genes and core pathways.Nature. 2007Jan 16;455(6798):1061-8. doi: 10.1038/oycpwi61778. Qamo3351 Nov 28. Erratum in: Nature. 2012May 24;494(0911):506. PMID:16851453; PMCID: PHH3880354.10) Linda MY, Alina M. Glioblastoma Genomics: A Very ComplicatedStory. In: De Nathanuwnitesh S, news video editor. Glioblastoma [Internet].Maria Isabel ([place]): [employer]; 2016Dec 21. Chapter 1. PMID:95052495.11) June S, Vivienne N, Sherrie H. Melanoma genomics: a mdgkf-tb-avr-artreview of practical clinical applications. Br J Dermatol. ug;185(2):272-281. doi: 10.1111/bjd.84505. Epub 2020Aug 30. PMID:29043665.12) Gita L, Dominguez DE. An update on molecular genetics ofgastrointestinal stromal tumours. J Clin Pathol. ;59(6):557-63. doi: 10.1136/jcp.2004.398773. PMID: 71014932; PMCID:VTA6188332.13) Jon ER, Dulce M, Jordan DODSONB, Belkis TL, Maryjane LL. Molecularprofiling for precision cancer therapies. Genome Med. 2019;12(1):8. doi: 10.1186/a64452-168-3228-5. PMID: 00618525; PMCID:VUW0043346.14) John Martinez et al. Somatic Genomic Testing in Patients WithMetastatic or Advanced Cancer: ASCO Provisional Clinical Opinion. JClin Oncol. 2021Jul 04;40(11):6909-5773. doi: 10.1200/JCO.21.58376.Epub 2021May 13. Erratum in: J Clin Oncol. 2021Sep 13;40(18):2068.PMID: 95095292.15) John Martinez et al. OncoKB: OncoKB: A Precision OncologyKnowledge Base. JCO Precis Oncol. 2016;2017:PO.17.31755. doi:10.1200/PO.17.88928. Epub 2016August 09. PMID: 68706945; PMCID:YVV7792788.DISCLAIMER:This test was developed and its performance characteristics determinedby [facility]'s Pathology and Laboratory Medicine Department. Ithas not been cleared or approved by the FDA. [facility] is regulated under CLIAas certified to perform high-complexity testing. This test is used forclinical purposes. It should not be regarded as investigational or forresearch.Test performed at [facility], [address] [place] [address], [id number]. CLIA Number: [id number] performed by Mignon Luciano MD Performed By: #### T OPTO ####CLARITY ILLUMINA LIMSCLIA [id number] [facility] [place] [address] [place] TYPE + SCREENon 08-28-2024 ABO B Normal [facility] Comment on above: Order Comment: Speci men Type: BLOOD SPECIMENOrdering Facility: [facility] Address: [address] [place] [address] Performed By: #### T SCR ####WOOD BLOOD BANKCLIA [id number] [address] OF [place] Rh Nom (Bld) Positive [facility] Comment on above: Order Comment: Speci men Type: BLOOD SPECIMENOrdering Facility: [facility] Address: [address] [place] [address] Performed By: #### T SCR ####WOOD BLOOD BANKCLIA [id number] [place] [address] [place] TYPE AND SCREEN EXPIRATION 08/31/2024 23:59 Normal [facility] Comment on above: Order Comment: Speci men Type: BLOOD SPECIMENOrdering Facility: [facility] Address: [address] [place] [address] Performed By: #### T SCR ####WOOD BLOOD BANKCLIA [id number] [address] [place] CNPNon 08-22-2024 CNPN Normal [facility] CNDSon 08-21-2024 CNDS [facility] CONSULT PROGon 08-21-2024 CONSULT PROG [facility] CONSULT PROG [facility] THERAPY NTon 08-21-2024 THERAPY NT [facility] CASE MGT [facility] Auto (Bld)on 08-20 Erythrocyte distribution width (RBC) [Ratio] 13.0 % Normal 11.5-15.0 [facility] Comment on above: Order Comment: Speci men Type: BLOOD SPECIMENOrdering Facility: [facility] Address: [address] [place] [address] Performed By: #### 5 8410-2 ####EMMANUEL LABORATORYCLIA [id number] [place] [address] [place] Hematocrit (Bld) [Volume fraction] 33.6 % Low 36.0-46.0 [facility] Comment on above: Order Comment: Speci men Type: BLOOD SPECIMENOrdering Facility: [facility] Address: [address] [place] [address] Performed By: #### 5 8410-2 ####[facility] LABORATORYCLIA [id number] [place] [address] [place] Hemoglobin (Bld) [Mass/Vol] 11.2 g/dL Low 11.5-15.5 [facility] Comment on above: Order Comment: Speci men Type: BLOOD SPECIMENOrdering Facility: [facility] Address: [address] [place] [address] Performed By: #### 5 8410-2 ####EMMANUEL LABORATORYCLIA [id number] [place] [address] [place] MCH (RBC) [Entitic mass] 33.2 pg Normal 26.0-34.0 [facility] Comment on above: Order Comment: Speci men Type: BLOOD SPECIMENOrdering Facility: [facility] Address: [address] [place] [address] Performed By: #### 5 8410-2 ####EMMANUEL LABORATORYCLIA [id number] [place] [address] [place] MCHC (RBC) [Mass/Vol] 33.3 g/dL Normal 30.5-36.0 [facility] Comment on above: Order Comment: Speci men Type: BLOOD SPECIMENOrdering Facility: [facility] Address: [address] [place] [address] Performed By: #### 5 8410-2 ####[facility] LABORATORYCLIA [id number] [address] [place] MCV (RBC) [Entitic vol] 99.7 fL Normal 80.0-100.0 [facility] Comment on above: Order Comment: Speci men Type: BLOOD SPECIMENOrdering Facility: [facility] Address: [address] [place] [address] Performed By: #### 5 8410-2 ####WOOD LABORATORYCLIA [id number] [place] [id number] [place] Nucleated RBC (Bld) [#/Vol] 10*3/uL Normal <0.01 [facility] Comment on above: Order Comment: Speci men Type: BLOOD SPECIMENOrdering Facility: [facility] Address: [address] [place] [address] Performed By: #### 5 8410-2 ####WOOD LABORATORYCLIA [id number] [place] [id number] [place] Platelet mean volume (Bld) [Entitic vol] 9.5 fL Normal 9.0-12.7 [facility] Comment on above: Order Comment: Speci men Type: BLOOD SPECIMENOrdering Facility: [facility] Address: [address] [place] [address] Performed By: #### 5 8410-2 ####WOOD LABORATORYCLIA [id number] [place] [id number] [place] Platelets (Bld) [#/Vol] 235 10*3/uL Normal 150-400 [facility] Comment on above: Order Comment: Speci men Type: BLOOD SPECIMENOrdering Facility: [facility] Address: [address] [place] [address] Performed By: #### 5 8410-2 ####WOOD LABORATORYCLIA [id number] [place] [id number] [place] RBC (Bld) [#/Vol] 3.37 10*6/uL Low 3.90-5.20 [facility] Comment on above: Order Comment: Speci men Type: BLOOD SPECIMENOrdering Facility: [facility] Address: [address] [place] [address] Performed By: #### 5 8410-2 ####WOOD LABORATORYCLIA [id number] [place] [id number] [place] WBC (Bld) [#/Vol] 5.29 10*3/uL Normal 3.70-11.00 [facility] Comment on above: Order Comment: Speci men Type: BLOOD SPECIMENOrdering Facility: [facility] Address: [address] [place] [address] Performed By: #### 5 8410-2 ####WOOD LABORATORYCLIA [id number] [place] [address] [place] CONSULTon 08-20-2024 CONSULT Normal [facility] CONSULT PROGon 08-20-2024 CONSULT PROG Normal [facility] Comprehensive metabolic 2000 panelon 08-20-2024 Albumin [Mass/Vol] 3.8 g/dL Low 3.9-4.9 [facility] Comment on above: Order Comment: Speci men Type: BLOOD SPECIMENOrdering Facility: [facility] Address: [address] [place] [address] Performed By: #### 1 9123-9, 2777-1, 98440-5 ####WOOD LABORATORYCLIA [id number] [place] [address] [place] ALP [Catalytic activity/Vol] 61 U/L Normal 34-123 [facility] Comment on above: Order Comment: Speci men Type: BLOOD SPECIMENOrdering Facility: [facility] Address: [address] [place] [address] Performed By: #### 1 9123-9, 2777-1, 76193-6 ####WOOD LABORATORYCLIA [id number] [place] [id number] [place] ALT [Catalytic activity/Vol] 7 U/L Normal 7-38 [facility] Comment on above: Order Comment: Speci men Type: BLOOD SPECIMENOrdering Facility: [facility] Address: [address] [place] [address] Performed By: #### 1 9123-9, 2777-1, 53706-3 ####WOOD LABORATORYCLIA [id number] [place] [id number] [place] Anion gap [Moles/Vol] 12 mmol/L Normal 8-15 [facility] Comment on above: Order Comment: Speci men Type: BLOOD SPECIMENOrdering Facility: [facility] Address: [address] [place] [address] Performed By: #### 1 9123-9, 2776-03, ####EMMANUEL LABORATORYCLIA [id number] [place] [id number] [place] AST [Catalytic activity/Vol] 18 U/L Normal 13-35 [facility] Comment on above: Order Comment: Speci men Type: BLOOD SPECIMENOrdering Facility: [facility] Address: [address] [place] [address] Performed By: #### 1 9123-9, 2776-03, 87897-7 ####EMMANUEL LABORATORYCLIA [id number] [place] [id number] [place] Bilirubin [Mass/Vol] 0.3 mg/dL Normal 0.2-1.3 [facility] Comment on above: Order Comment: Speci men Type: BLOOD SPECIMENOrdering Facility: [facility] Address: [address] [place] [address] Performed By: #### 1 9123-9, 2776-03, 10643-3 ####EMMANUEL LABORATORYCLIA [id number] [place] [id number] [place] Calcium [Mass/Vol] 9.2 mg/dL Normal 8.5-10.2 [facility] Comment on above: Order Comment: Speci men Type: BLOOD SPECIMENOrdering Facility: [facility] Address: [address] [place] [address] Performed By: #### 1 9123-9, 2776-03, 78629-4 ####EMMANUEL LABORATORYCLIA [id number] [place] [id number] [place] Chloride [Moles/Vol] 99 mmol/L Normal 98-107 [facility] Comment on above: Order Comment: Speci men Type: BLOOD SPECIMENOrdering Facility: [facility] Address: [address] [place] [address] Performed By: #### 1 9123-9, 2776-03, 27689-6 ####EMMANUEL LABORATORYCLIA [id number] [place] [id number] [place] CO2 [Moles/Vol] 27 mmol/L Normal 22-30 [facility] Comment on above: Order Comment: Umesh baugh Type: BLOOD SPECIMENOrdering Facility: [facility] Address: [address] [place] [address] Performed By: #### 1 9123-9, 2777-, 21072-6 ####WOOD LABORATORYCLIA [id number] [place] [id number] [place] Creatinine [Mass/Vol] 0.75 mg/dL Normal 0.58-0.96 [facility] Comment on above: Order Comment: Umesh baugh Type: BLOOD SPECIMENOrdering Facility: [facility] Address: [address] [place] [address] Performed By: #### 1 9123-9, 2777, 99384-2 ####WOOD LABORATORYCLIA [id number] [place] [id number] [place] Creatinine and Glomerular filtration rate.predicted panel (S/P/Bld) 88 mL/min/1.73m??? Normal >=60 [facility] Comment on above: Order Comment: Umesh baugh Type: BLOOD SPECIMENOrdering Facility: [facility] Address: [address] [place] [address] Result Comment: Sana mated Glomerular Filtration Rate [...] GFR. Performed By: #### 1 9123-9, 2777-, 75457-4 ####WOOD LABORATORYCLIA [id number] [place] [id number] [place] Glucose [Mass/Vol] 73 mg/dL Low 74-99 [facility] Comment on above: Order Comment: Umesh baugh Type: BLOOD SPECIMENOrdering Facility: [facility] Address: [address] [place] [address] Result Comment: The [place] [employer] (ADA) provides guidance for cutoff [...] Standards of Medical Care in Diabetes 2016, [place] [employer]. Diabetes Care. 2016.39(Suppl 1). Performed By: #### 1 9123-9, 27709-24, ####EMMANUEL LABORATORYCLIA [id number] [place] [address] [place] Potassium [Moles/Vol] 4.3 mmol/L Normal 3.7-5.1 [facility] Comment on above: Order Comment: Speci men Type: BLOOD SPECIMENOrdering Facility: [facility] Address: [address] [place] [address] Performed By: #### 1 9123-9, 2776-03, ####EMMANUEL LABORATORYCLIA [id number] [place] [id number] [place] Protein [Mass/Vol] 6.8 g/dL Normal 6.3-8.0 [facility] Comment on above: Order Comment: Speci men Type: BLOOD SPECIMENOrdering Facility: [facility] Address: [address] [place] [address] Performed By: #### 1 9123-9, 27709-24, ####EMMANUEL LABORATORYCLIA [id number] [place] [address] [place] Sodium [Moles/Vol] 138 mmol/L Normal 136-144 [facility] Comment on above: Order Comment: Speci men Type: BLOOD SPECIMENOrdering Facility: [facility] Address: [address] [place] [address] Performed By: #### 1 9123-9, 2777-, 72188-9 ####EMMANUEL LABORATORYCLIA [id number] [place] [id number] [place] Urea nitrogen [Mass/Vol] 13 mg/dL Normal 7-21 [facility] Comment on above: Order Comment: Speci men Type: BLOOD SPECIMENOrdering Facility: [facility] Address: [address] [place] [address] Performed By: #### 1 9123-9, 27709-24, 36045-2 ####[facility] LABORATORYCLIA [id number] [place] [id number] [place] HISTORY PHYSICALon HISTORY PHYSICAL Normal [facility] Magnesium SerPl-ncon 08-20 Magnesium [Mass/Vol] 1.7 mg/dL Normal 1.7-2.3 [facility] Comment on above: Order Comment: Speci men Type: BLOOD SPECIMENOrdering Facility: [facility] Address: [address] [place] [address] Performed By: #### 1 9123-9, 27709-24, 33178-8 ####[facility] LABORATORYCLIA [id number] [place] [id number] [place] NURSING PROGon 08-20-2024 NURSING PROG Normal [facility] NUTRITIONon 08-20-2024 NUTRITION Normal [facility] Phosphate SerPl-ncon 08-20 Phosphate [Mass/Vol] 4.9 mg/dL High 2.7-4.8 [facility] Comment on above: Order Comment: Speci men Type: BLOOD SPECIMENOrdering Facility: [facility] Address: [address] [place] [address] Performed By: #### 1 9123-9, 2777-, 33049-9 ####[facility] LABORATORYCLIA [id number] [place] [id number] [place] CBC W Auto Differential pane l (Bld)on 08-19-2024 Basophils (Bld) [#/Vol] 0.09 10*3/uL Normal <0.11 [facility] Comment on above: Order Comment: Speci men Type: BLOOD SPECIMENOrdering Facility: [facility] Address: [address] [place] [address] Performed By: #### 5 7021-8 ####EMMANUEL LABORATORYCLIA [id number] [place] [address] [place] Basophils/100 WBC (Bld) 1.1 % Normal [facility] Comment on above: Order Comment: Speci men Type: BLOOD SPECIMENOrdering Facility: [facility] Address: [address] [place] [address] Performed By: #### 5 7021-8 ####EMMANUEL LABORATORYCLIA [id number] [place] [address] [place] Differential cell count method Nom (Bld) Auto Normal [facility] Comment on above: Order Comment: Speci men Type: BLOOD SPECIMENOrdering Facility: [facility] Address: [address] [place] [address] Performed By: #### 5 7021-8 ####EMMANUEL LABORATORYCLIA [id number] [place] [address] [place] Eosinophils (Bld) [#/Vol] 0.31 10*3/uL Normal <0.46 [facility] Comment on above: Order Comment: Speci men Type: BLOOD SPECIMENOrdering Facility: [facility] Address: [address] [place] [address] Performed By: #### 5 7021-8 ####EMMANUEL LABORATORYCLIA [id number] [place] [address] [place] Eosinophils/100 WBC (Bld) 3.8 % Normal [facility] Comment on above: Order Comment: Speci men Type: BLOOD SPECIMENOrdering Facility: [facility] Address: [address] [place] [address] Performed By: #### 5 7021-8 ####EMMANUEL LABORATORYCLIA [id number] [place] [address] [place] Erythrocyte distribution width (RBC) [Ratio] 13.5 % Normal 11.5-15.0 [facility] Comment on above: Order Comment: Speci men Type: BLOOD SPECIMENOrdering Facility: [facility] Address: [address] [place] [address] Performed By: #### 5 7021-8 ####[facility] LABORATORYCLIA [id number] [place] [address] [place] Hematocrit (Bld) [Volume fraction] 37.1 % Normal 36.0-46.0 [facility] Comment on above: Order Comment: Speci men Type: BLOOD SPECIMENOrdering Facility: [facility] Address: [address] [place] [address] Performed By: #### 5 7021-8 ####EMMANUEL LABORATORYCLIA [id number] [place] [address] [place] Hemoglobin (Bld) [Mass/Vol] 12.4 g/dL Normal 11.5-15.5 [facility] Comment on above: Order Comment: Speci men Type: BLOOD SPECIMENOrdering Facility: [facility] Address: [address] [place] [address] Performed By: #### 5 7021-8 ####[facility] LABORATORYCLIA [id number] [place] [address] [place] Immature granulocytes (Bld) [#/Vol] 0.03 10*3/uL Normal <0.10 [facility] Comment on above: Order Comment: Speci men Type: BLOOD SPECIMENOrdering Facility: [facility] Address: [address] [place] [address] Performed By: #### 5 7021-8 ####EMMANUEL LABORATORYCLIA [id number] [place] [address] [place] Immature granulocytes/100 WBC (Bld) 0.4 % Normal [facility] Comment on above: Order Comment: Speci men Type: BLOOD SPECIMENOrdering Facility: [facility] Address: [address] [place] [address] Performed By: #### 5 7021-8 ####EMMANUEL LABORATORYCLIA [id number] [place] [address] [place] Lymphocytes (Bld) [#/Vol] 1.26 10*3/uL Normal 1.00-4.00 [facility] Comment on above: Order Comment: Speci men Type: BLOOD SPECIMENOrdering Facility: [facility] Address: [address] [place] [address] Performed By: #### 5 7021-8 ####EMMANUEL LABORATORYCLIA [id number] [place] [id number] [place] Lymphocytes/100 WBC (Bld) 15.6 % Normal [facility] Comment on above: Order Comment: Speci men Type: BLOOD SPECIMENOrdering Facility: [facility] Address: [address] [place] [address] Performed By: #### 5 7021-8 ####EMMANUEL LABORATORYCLIA [id number] [place] [address] [place] MCH (RBC) [Entitic mass] 33.6 pg Normal 26.0-34.0 [facility] Comment on above: Order Comment: Speci men Type: BLOOD SPECIMENOrdering Facility: [facility] Address: [address] [place] [address] Performed By: #### 5 7021-8 ####EMMANUEL LABORATORYCLIA [id number] [place] [address] [place] MCHC (RBC) [Mass/Vol] 33.4 g/dL Normal 30.5-36.0 [facility] Comment on above: Order Comment: Speci men Type: BLOOD SPECIMENOrdering Facility: [facility] Address: [address] [place] [address] Performed By: #### 5 7021-8 ####EMMANUEL LABORATORYCLIA [id number] [place] [id number] [place] MCV (RBC) [Entitic vol] 100.5 fL High 80.0-100.0 [facility] Comment on above: Order Comment: Speci men Type: BLOOD SPECIMENOrdering Facility: [facility] Address: [address] [place] [address] Performed By: #### 5 7021-8 ####EMMANUEL LABORATORYCLIA [id number] [place] [id number] [place] Monocytes (Bld) [#/Vol] 0.72 10*3/uL Normal <0.87 [facility] Comment on above: Order Comment: Speci men Type: BLOOD SPECIMENOrdering Facility: [facility] Address: [address] [place] [address] Performed By: #### 5 7021-8 ####EMMANUEL LABORATORYCLIA [id number] [place] [id number] [place] Monocytes/100 WBC (Bld) 8.9 % Normal [facility] Comment on above: Order Comment: Speci men Type: BLOOD SPECIMENOrdering Facility: [facility] Address: [address] [place] [address] Performed By: #### 5 7021-8 ####EMMANUEL LABORATORYCLIA [id number] [place] [address] [place] Neutrophils (Bld) [#/Vol] 5.66 10*3/uL Normal 1.45-7.50 [facility] Comment on above: Order Comment: Speci men Type: BLOOD SPECIMENOrdering Facility: [facility] Address: [address] [place] [address] Performed By: #### 5 7021-8 ####EMMANUEL LABORATORYCLIA [id number] [place] [id number] [place] Neutrophils/100 WBC (Bld) 70.2 % Normal [facility] Comment on above: Order Comment: Speci men Type: BLOOD SPECIMENOrdering Facility: [facility] Address: [address] [place] [address] Performed By: #### 5 7021-8 ####EMMANUEL LABORATORYCLIA [id number] [place] [id number] [place] Nucleated RBC (Bld) [#/Vol] 10*3/uL Normal <0.01 [facility] Comment on above: Order Comment: Speci men Type: BLOOD SPECIMENOrdering Facility: [facility] Address: [address] [place] [address] Performed By: #### 5 7021-8 ####[facility] LABORATORYCLIA [id number] [place] [id number] [place] Nucleated RBC/100 WBC (Bld) [Ratio] 0.0 /100 WBC Normal [facility] Comment on above: Order Comment: Speci men Type: BLOOD SPECIMENOrdering Facility: [facility] Address: [address] [place] [address] Performed By: #### 5 7021-8 ####[facility] LABORATORYCLIA [id number] [place] [address] [place] Platelet mean volume (Bld) [Entitic vol] 9.7 fL Normal 9.0-12.7 [facility] Comment on above: Order Comment: Speci men Type: BLOOD SPECIMENOrdering Facility: [facility] Address: [address] [place] [address] Performed By: #### 5 7021-8 ####[facility] LABORATORYCLIA [id number] [place] [address] [place] Platelets (Bld) [#/Vol] 277 10*3/uL Normal 150-400 [facility] Comment on above: Order Comment: Speci men Type: BLOOD SPECIMENOrdering Facility: [facility] Address: [address] [place] [address] Performed By: #### 5 7021-8 ####[facility] LABORATORYCLIA [id number] [place] [address] [place] RBC (Bld) [#/Vol] 3.69 10*6/uL Low 3.90-5.20 [facility] Comment on above: Order Comment: Speci men Type: BLOOD SPECIMENOrdering Facility: [facility] Address: [address] [place] [address] Performed By: #### 5 7021-8 ####WOOD LABORATORYCLIA [id number] [place] [id number] [place] WBC (Bld) [#/Vol] 8.07 10*3/uL Normal 3.70-11.00 [facility] Comment on above: Order Comment: Speci men Type: BLOOD SPECIMENOrdering Facility: [facility] Address: [address] [place] [address] Performed By: #### 5 7021-8 ####[facility] LABORATORYCLIA [id number] [place] [id number] [place] CONSULTon 08-19-2024 CONSULT Normal [facility] CT ABD/PEL W IVCONon 025 CT ABD/PEL W IVCON Normal [facility] Comprehensive metabolic 2000 panelon 08-19-2024 Albumin [Mass/Vol] 4.3 g/dL Normal 3.9-4.9 [facility] Comment on above: Order Comment: Speci men Type: BLOOD SPECIMENOrdering Facility: [facility] Address: [address] [place] [address] Performed By: #### 3 040-3, , ####[facility] LABORATORYCLIA [id number] [place] [address] [place] ALP [Catalytic activity/Vol] 72 U/L Normal 34-123 [facility] Comment on above: Order Comment: Speci men Type: BLOOD SPECIMENOrdering Facility: [facility] Address: [address] [place] [address] Performed By: #### 3 040-3, , 97734-8 ####[facility] LABORATORYCLIA [id number] [place] [id number] [place] ALT [Catalytic activity/Vol] 8 U/L Normal 7-38 [facility] Comment on above: Order Comment: Speci men Type: BLOOD SPECIMENOrdering Facility: [facility] Address: [address] [place] [address] Performed By: #### 3 040-3, , 07763-2 ####[facility] INC LABORATORYCLIA [id number] [place] [id number] [place] Anion gap [Moles/Vol] 15 mmol/L Normal 8-15 [facility] Comment on above: Order Comment: Speci men Type: BLOOD SPECIMENOrdering Facility: [facility] Address: [address] [place] [address] Performed By: #### 3 040-3, , ####WOOD LABORATORYCLIA [id number] [place] [id number] [place] AST [Catalytic activity/Vol] 27 U/L Normal 13-35 [facility] Comment on above: Order Comment: Speci men Type: BLOOD SPECIMENOrdering Facility: [facility] Address: [address] [place] [address] Performed By: #### 3 040-3, , ####WOOD LABORATORYCLIA [id number] [place] [id number] [place] Bilirubin [Mass/Vol] 0.3 mg/dL Normal 0.2-1.3 [facility] Comment on above: Order Comment: Speci men Type: BLOOD SPECIMENOrdering Facility: [facility] Address: [address] [place] [address] Performed By: #### 3 040-3, , ####WOOD LABORATORYCLIA [id number] [place] [address] [place] Calcium [Mass/Vol] 9.7 mg/dL Normal 8.5-10.2 [facility] Comment on above: Order Comment: Speci men Type: BLOOD SPECIMENOrdering Facility: [facility] Address: [address] [place] [address] Performed By: #### 3 040-3, , ####WOOD LABORATORYCLIA [id number] [place] [id number] [place] Chloride [Moles/Vol] 95 mmol/L Low 98-107 [facility] Comment on above: Order Comment: Speci men Type: BLOOD SPECIMENOrdering Facility: [facility] Address: [address] [place] [address] Performed By: #### 3 040-3, , ####WOOD LABORATORYCLIA [id number] [place] [id number] [place] CO2 [Moles/Vol] 27 mmol/L Normal 22-30 [facility] Comment on above: Order Comment: Speci men Type: BLOOD SPECIMENOrdering Facility: [facility] Address: [address] [place] [address] Performed By: #### 3 040-3, , ####WOOD LABORATORYCLIA [id number] [place] [id number] [place] Creatinine [Mass/Vol] 0.74 mg/dL Normal 0.58-0.96 [facility] Comment on above: Order Comment: Umesh men Type: BLOOD SPECIMENOrdering Facility: [facility] Address: [address] [place] [address] Performed By: #### 3 040-3, , ####WOOD LABORATORYCLIA [id number] [place] [address] [place] Creatinine and Glomerular filtration rate.predicted panel (S/P/Bld) 90 mL/min/1.73m??? Normal >=60 [facility] Comment on above: Order Comment: Abdouli lupis Type: BLOOD SPECIMENOrdering Facility: [facility] Address: [address] [place] [address] Result Comment: Sana mated Glomerular Filtration Rate [...] GFR. Performed By: #### 3 040-3, , ####WOOD LABORATORYCLIA [id number] [place] [id number] [place] Glucose [Mass/Vol] 97 mg/dL Normal 74-99 [facility] Comment on above: Order Comment: Speci lupis Type: BLOOD SPECIMENOrdering Facility: [facility] Address: [address] [place] [address] Result Comment: The [place] Diabetes [employer] (ADA) provides guidance for cutoff [...] Standards of Medical Care in Diabetes 2016, [place] [employer]. Diabetes Care. 2016.39(Suppl 1). Performed By: #### 3 040-3, , ####EMMANUEL LABORATORYCLIA [id number] [place] [id number] [place] Potassium [Moles/Vol] 3.6 mmol/L Low 3.7-5.1 [facility] Comment on above: Order Comment: Speci men Type: BLOOD SPECIMENOrdering Facility: [facility] Address: [address] [place] [address] Performed By: #### 3 040-3, , ####EMMANUEL LABORATORYCLIA [id number] [place] [id number] [place] Protein [Mass/Vol] 7.9 g/dL Normal 6.3-8.0 [facility] Comment on above: Order Comment: Speci men Type: BLOOD SPECIMENOrdering Facility: [facility] Address: [address] [place] [address] Performed By: #### 3 040-3, , ####EMMANUEL LABORATORYCLIA [id number] [place] [id number] [place] Sodium [Moles/Vol] 137 mmol/L Normal 136-144 [facility] Comment on above: Order Comment: Speci men Type: BLOOD SPECIMENOrdering Facility: [facility] Address: [address] [place] [address] Performed By: #### 3 040-3, , ####EMMANUEL LABORATORYCLIA [id number] [place] [address] [place] Urea nitrogen [Mass/Vol] 12 mg/dL Normal 7-21 [facility] Comment on above: Order Comment: Speci men Type: BLOOD SPECIMENOrdering Facility: [facility] Address: [address] [place] [address] Performed By: #### 3 040-3, 89460-3, ####EMMANUEL LABORATORYCLIA [id number] [place] [id number] [place] ED NOTEon 08-19-2024 ED NOTE HNO ID: [id number] Author: DAREN HERNANDEZ RN Service: ? Author Type: Registered Nurse Type: ED Notes Filed: 08/19/2024 15:00 Note Text: Report to REAL Plata Normal [facility] ED NOTE HNO ID: [id number] Author: PRISCILLA TAN RN Service: Nursing Author Type: Registered Nurse Type: ED Notes Filed: 08/19/2024 09:52 Note Text: Sts pain severe and unable to control at home. Sts had CT on 08/14. Unable to reach surgeon by phone. Normal [facility] ED PROV NOTEon 08-19-2024 ED PROV NOTE Normal [facility] ED Triage Noteon 08-19-2024 ED Triage Note Normal [facility] Lipase SerPl-cCncon 08-20-19 25 Lipase [Catalytic activity/Vol] 14 U/L Low 16-61 [facility] Comment on above: Order Comment: Speci men Type: BLOOD SPECIMENOrdering Facility: [facility] Address: [address] [place] [address] Performed By: #### 3 040-3, , ####WOOD LABORATORYCLIA [id number] [place] [id number] [place] Magnesium SerPl-mCncon 08-19 Magnesium [Mass/Vol] 1.8 mg/dL Normal 1.7-2.3 [facility] Comment on above: Order Comment: Speci men Type: BLOOD SPECIMENOrdering Facility: [facility] Address: [address] [place] [address] Performed By: #### 3 040-3, 82798-2, 32114-3 ####[place] LABORATORYCLIA [id number] [address] [place] Urinalysis complete panel (U )on 08-19-2024 Bilirubin Ql (U) Negative Normal Negative [facility] Comment on above: Order Comment: Speci men Type: URINE SPECIMENOrdering Facility: [facility] Address: [address] [place] [address] Performed By: #### 2 4356-8 ####EMMANUEL LABORATORYCLIA [id number] [address] [place] Clarity (Unsp spec) Clear Normal Clear [facility] Comment on above: Order Comment: Speci men Type: URINE SPECIMENOrdering Facility: [facility] Address: [address] [place] [address] Performed By: #### 2 4356-8 ####EMMANUEL LABORATORYCLIA [id number] [place] [address] [place] Color (U) Light Yellow Normal Yellow [facility] Comment on above: Order Comment: Speci men Type: URINE SPECIMENOrdering Facility: [facility] Address: [address] [place] [address] Performed By: #### 2 4356-8 ####EMMANUEL LABORATORYCLIA [id number] [address] [place] Epithelial cells LM.HPF (Urine sed) [#/Area] Few Normal [facility] Comment on above: Order Comment: Speci men Type: URINE SPECIMENOrdering Facility: [facility] Address: [address] [place] [address] Performed By: #### 2 4356-8 ####[place] LABORATORYCLIA [id number] [place] [address] [place] Glucose Test strip (U) [Mass/Vol] Negative Normal Trace, Negative [facility] Comment on above: Order Comment: Speci men Type: URINE SPECIMENOrdering Facility: [facility] Address: [address] [place] [address] Performed By: #### 2 4356-8 ####[facility] LABORATORYCLIA [id number] [place] [address] [place] Hemoglobin Ql (U) Negative Normal Negative, Trace [facility] Comment on above: Order Comment: Speci men Type: URINE SPECIMENOrdering Facility: [facility] Address: [address] [place] [address] Performed By: #### 2 4356-8 ####EMMANUEL LABORATORYCLIA [id number] [place] [address] [place] Ketones Ql (U) 1+ Abnormal Negative, Trace [facility] Comment on above: Order Comment: Speci men Type: URINE SPECIMENOrdering Facility: [facility] Address: [address] [place] [address] Performed By: #### 2 4356-8 ####[facility] LABORATORYCLIA [id number] [address] [place] Leukocyte esterase Test strip Ql (U) Negative Normal Negative, 25 Adeola/uL [facility] Comment on above: Order Comment: Speci men Type: URINE SPECIMENOrdering Facility: [facility] Address: [address] [place] [address] Performed By: #### 2 4356-8 ####[facility] LABORATORYCLIA [id number] [address] [place] Nitrite Ql (U) Negative Normal Negative [facility] Comment on above: Order Comment: Speci men Type: URINE SPECIMENOrdering Facility: [facility] Address: [address] [place] [address] Performed By: #### 2 4356-8 ####[facility] LABORATORYCLIA [id number] [place] [address] [place] pH (U) 6.5 [pH] Normal 5.0-8.0 [facility] Comment on above: Order Comment: Speci men Type: URINE SPECIMENOrdering Facility: [facility] Address: [address] [place] [address] Performed By: #### 2 4356-8 ####[facility] LABORATORYCLIA [id number] [place] [address] [place] Protein (U) [Mass/Vol] 1+ Abnormal Trace, Negative [facility] Comment on above: Order Comment: Speci men Type: URINE SPECIMENOrdering Facility: [facility] Address: [address] [place] [address] Performed By: #### 2 4356-8 ####[facility] LABORATORYCLIA [id number] [place] [address] [place] RBC LM.HPF (Urine sed) [#/Area] 0-3 /HPF Normal 0-3 /HPF [facility] Comment on above: Order Comment: Speci men Type: URINE SPECIMENOrdering Facility: [facility] Address: [address] [place] [address] Performed By: #### 2 4356-8 ####WOOD LABORATORYCLIA [id number] [address] STATES [facility] Specific gravity (U) [Rel density] >1.050 High 1.005-1.03 0 [facility] Comment on above: Order Comment: Speci men Type: URINE SPECIMENOrdering Facility: [facility] Address: [address] [place] [address] Performed By: #### 2 4356-8 ####[facility] LABORATORYCLIA [id number] [address] [place] Urobilinogen Ql (U) Normal Normal Normal [facility] Comment on above: Order Comment: Speci men Type: URINE SPECIMENOrdering Facility: [facility] Address: [address] [place] [address] Performed By: #### 2 4356-8 ####WOOD LABORATORYCLIA [id number] [address] [place] WBC LM.HPF (Urine sed) [#/Area] 0-5 /HPF Normal 0-5 /HPF [facility] Comment on above: Order Comment: Speci men Type: URINE SPECIMENOrdering Facility: [facility] Address: [address] [place] [address] Performed By: #### 2 4356-8 ####EMMANUEL LABORATORYCLIA [id number] [place] [address] [place] CBC W Auto Differential pane l (Bld)on 08-14-2024 Basophils (Bld) [#/Vol] 0.07 10*3/uL Normal <0.11 [facility] Comment on above: Order Comment: Speci men Type: BLOOD SPECIMENOrdering Facility: [facility] Address: [address] [place] [address] Performed By: #### 5 7021-8 ####[facility] [id number] [place] [address] [place] Basophils/100 WBC (Bld) 1.0 % Normal [facility] Comment on above: Order Comment: Speci men Type: BLOOD SPECIMENOrdering Facility: [facility] Address: [address] [place] [address] Performed By: #### 5 7021-8 ####[facility] [id number] [place] [address] [place] Differential cell count method Nom (Bld) Auto Normal [facility] Comment on above: Order Comment: Speci men Type: BLOOD SPECIMENOrdering Facility: [facility] Address: [address] [place] [address] Performed By: #### 5 7021-8 ####[facility] [id number] [place] [address] [place] Eosinophils (Bld) [#/Vol] 0.50 10*3/uL High <0.46 [facility] Comment on above: Order Comment: Speci men Type: BLOOD SPECIMENOrdering Facility: [facility] Address: [address] [place] [address] Performed By: #### 5 7021-8 ####[facility]ITAL[facility] [id number] [place] [address] [place] Eosinophils/100 WBC (Bld) 7.3 % Normal [facility] Comment on above: Order Comment: Speci men Type: BLOOD SPECIMENOrdering Facility: [facility] Address: [address] [place] [address] Performed By: #### 5 7021-8 ####[facility] [id number] [place] [address] [place] Erythrocyte distribution width (RBC) [Ratio] 14.2 % Normal 11.5-15.0 [facility] Comment on above: Order Comment: Speci men Type: BLOOD SPECIMENOrdering Facility: [facility] Address: [address] [place] [address] Performed By: #### 5 7021-8 ####[facility]NCM[facility] [id number] [place] [address] [place] Hematocrit (Bld) [Volume fraction] 33.9 % Low 36.0-46.0 [facility] Comment on above: Order Comment: Speci men Type: BLOOD SPECIMENOrdering Facility: [facility] Address: [address] [place] [address] Performed By: #### 5 7021-8 ####[facility] [id number] [place] [address] [place] Hemoglobin (Bld) [Mass/Vol] 11.4 g/dL Low 11.5-15.5 [facility] Comment on above: Order Comment: Speci men Type: BLOOD SPECIMENOrdering Facility: [facility] Address: [address] [place] [address] Performed By: #### 5 7021-8 ####[facility] [id number] [place] [address] [place] Immature granulocytes (Bld) [#/Vol] 10*3/uL Normal <0.10 [facility] Comment on above: Order Comment: Speci men Type: BLOOD SPECIMENOrdering Facility: [facility] Address: [address] [place] [address] Performed By: #### 5 7021-8 ####[facility] LALYWNCLIA [id number] [place] [address] [place] Immature granulocytes/100 WBC (Bld) 0.1 % Normal [facility] Comment on above: Order Comment: Speci men Type: BLOOD SPECIMENOrdering Facility: [facility] Address: [address] [place] [address] Performed By: #### 5 7021-8 ####[facility]PITALNCLIA [id number] [place] [address] [place] Lymphocytes (Bld) [#/Vol] 2.00 10*3/uL Normal 1.00-4.00 [facility] Comment on above: Order Comment: Speci men Type: BLOOD SPECIMENOrdering Facility: [facility] Address: [address] [place] [address] Performed By: #### 5 7021-8 ####[facility]ITALNCLIA [id number] [place] [address] [place] Lymphocytes/100 WBC (Bld) 29.3 % Normal [facility] Comment on above: Order Comment: Speci men Type: BLOOD SPECIMENOrdering Facility: [facility] Address: [address] [place] [address] Performed By: #### 5 7021-8 ####[facility]ITALNCLIA [id number] [place] [address] [place] MCH (RBC) [Entitic mass] 34.4 pg High 26.0-34.0 [facility] Comment on above: Order Comment: Speci men Type: BLOOD SPECIMENOrdering Facility: [facility] Address: [address] [place] [address] Performed By: #### 5 7021-8 ####[facility]ITALNCLIA [id number] [place] [address] [place] MCHC (RBC) [Mass/Vol] 33.6 g/dL Normal 30.5-36.0 [facility] Comment on above: Order Comment: Speci men Type: BLOOD SPECIMENOrdering Facility: [facility] Address: [address] [place] [address] Performed By: #### 5 7021-8 ####[facility] [id number] [place] [address] [place] MCV (RBC) [Entitic vol] 102.4 fL High 80.0-100.0 [facility] Comment on above: Order Comment: Speci men Type: BLOOD SPECIMENOrdering Facility: [facility] Address: [address] [place] [address] Performed By: #### 5 7021-8 ####[facility] [id number] [place] [address] [place] Monocytes (Bld) [#/Vol] 0.51 10*3/uL Normal <0.87 [facility] Comment on above: Order Comment: Speci men Type: BLOOD SPECIMENOrdering Facility: [facility] Address: [address] [place] [address] Performed By: #### 5 7021-8 ####[facility] [id number] [place] [address] [place] Monocytes/100 WBC (Bld) 7.5 % Normal [facility] Comment on above: Order Comment: Speci men Type: BLOOD SPECIMENOrdering Facility: [facility] Address: [address] [place] [address] Performed By: #### 5 7021-8 ####[facility] HOSPITALNCLI [id number] [place] [address] [place] Neutrophils (Bld) [#/Vol] 3.73 10*3/uL Normal 1.45-7.50 [facility] Comment on above: Order Comment: Speci men Type: BLOOD SPECIMENOrdering Facility: [facility] Address: [address] [place] [address] Performed By: #### 5 7021-8 ####[facility]ITALNCM[facility] [id number] [place] [address] [place] Neutrophils/100 WBC (Bld) 54.8 % Normal [facility] Comment on above: Order Comment: Speci men Type: BLOOD SPECIMENOrdering Facility: [facility] Address: [address] [place] [address] Performed By: #### 5 7021-8 ####[facility]ITALNCM[facility] [id number] [place] [address] [place] Nucleated RBC (Bld) [#/Vol] 10*3/uL Normal <0.01 [facility] Comment on above: Order Comment: Speci men Type: BLOOD SPECIMENOrdering Facility: [facility] Address: [address] [place] [address] Performed By: #### 5 7021-8 ####[facility] [id number] [place] [address] [place] Nucleated RBC/100 WBC (Bld) [Ratio] 0.0 /100 WBC Normal [facility] Comment on above: Order Comment: Speci men Type: BLOOD SPECIMENOrdering Facility: [facility] Address: [address] [place] [address] Performed By: #### 5 7021-8 ####[facility] [id number] [place] [address] [place] Platelet mean volume (Bld) [Entitic vol] 9.3 fL Normal 9.0-12.7 [facility] Comment on above: Order Comment: Speci men Type: BLOOD SPECIMENOrdering Facility: [facility] Address: [address] [place] [address] Performed By: #### 5 7021-8 ####[facility] MARCONCLIA [id number] [place] [address] [place] Platelets (Bld) [#/Vol] 267 10*3/uL Normal 150-400 [facility] Comment on above: Order Comment: Speci men Type: BLOOD SPECIMENOrdering Facility: [facility] Address: [address] [place] [address] Performed By: #### 5 7021-8 ####[facility] BISHNUCucaNCLIA [id number] [place] [address] [place] RBC (Bld) [#/Vol] 3.31 10*6/uL Low 3.90-5.20 [facility] Comment on above: Order Comment: Speci men Type: BLOOD SPECIMENOrdering Facility: [facility] Address: [address] [place] [address] Performed By: #### 5 7021-8 ####[facility]PITALNCLIA [id number] [place] [address] [place] WBC (Bld) [#/Vol] 6.82 10*3/uL Normal 3.70-11.00 [facility] Comment on above: Order Comment: Speci men Type: BLOOD SPECIMENOrdering Facility: [facility] Address: [address] [place] [address] Performed By: #### 5 7021-8 ####[facility] BISHNUWINSTON SALEMNCLIA [id number] [place] [address] [place] CT ABD/PEL W IVCONon 025 CT ABD/PEL W IVCON Normal [facility] Ferritin SerPl-mCncon 2024 Ferritin [Mass/Vol] 55.8 ng/mL Normal 14.7-205.1 [facility] Comment on above: Order Comment: Speci men Type: BLOOD SPECIMENOrdering Facility: [facility] Address: [address] [place] [address] Performed By: #### 5 0190-8, 2276-4 ####[facility] LABCLIA [id number] [place] [address] [place] HISTORY PHYSICALon HISTORY PHYSICAL Normal [facility] HbA1c (Bld)on 08-14-2024 Average glucose Estimated from glycated hemoglobin (Bld) [Mass/Vol] 80 mg/dL Normal [facility] Comment on above: Order Comment: Umesh [facility] Type: BLOOD SPECIMENOrdering Facility: [facility] Address: [address] [place] [address] Result Comment: eAG: (Estimated average glucose) is a calculated value from HgbA1c and is pharmaceutical representative of the average blood glucose level in the last 2-3 month period. Performed By: #### 5 5454-3 ####[facility] LABIA [id number] [address] STATES OF [facility] HbA1c (Bld) [Mass fraction] 4.4 % Normal 4.3-5.6 [facility] Comment on above: Order Comment: Umesh baugh Type: BLOOD SPECIMENOrdering Facility: [facility] Address: [address] [place] [address] Result Comment: [place] [place] [employer] guidelines indicate that patients with HgbA1c in the range 5.7-6.4% are at increased risk for development of diabetes, and intervention by lifestyle modification may be beneficial. HgbA1c greater or equal to 6.5% is considered diagnostic of diabetes. Performed By: #### 5 5454-3 ####[facility] LABIA [id number] [place] [id number] [place] Iron and Iron binding capaci ty panelon 08-14-2024 Iron [Mass/Vol] 58 ug/dL Normal 41-186 [facility] Comment on above: Order Comment: Umesh men Type: BLOOD SPECIMENOrdering Facility: [facility] Address: [address] [place] [address] Performed By: #### 5 0190-8, 6-4 ####[facility] LABCLIA [id number] [place] [address] [place] Iron binding capacity [Mass/Vol] 341 ug/dL Normal 232-386 [facility] Comment on above: Order Comment: Speci men Type: BLOOD SPECIMENOrdering Facility: [facility] Address: [address] [place] [address] Performed By: #### 5 0190-8, 6-4 ####[facility]IA [id number] [place] [address] [place] Iron/TIBC [Molar ratio] 17.0 % Normal 15.0-57.0 [facility] Comment on above: Order Comment: Speci men Type: BLOOD SPECIMENOrdering Facility: [facility] Address: [address] [place] [address] Performed By: #### 5 0190-8, 6-4 ####[facility]IA [id number] [place] [address] [place] TYPE AND SCREEN,30 DAYon ABO B Normal [facility] Comment on above: Order Comment: Speci men Type: BLOOD SPECIMENOrdering Facility: [facility] Address: [address] [place] [address] Performed By: #### T [id number] ####[facility] BLOOD BANKCLIA [id number] [place] [address] [place] Rh Nom (Bld) Positive Normal [facility] Comment on above: Order Comment: Speci men Type: BLOOD SPECIMENOrdering Facility: [facility] Address: [address] [place] [address] Performed By: #### T SCR30 ####[facility] BLOOD BANKIA [id number] [place] [address] [place] CNCNPATEDon 08-05-2024 CNCNPATED Normal [facility] CNOVon 08-05-2024 CNOV Normal [facility] CNOVSPon 07-31-2024 CNOVSP Normal [facility] REFERRAL FOR ADDITIONAL BIOM ARKER AND MOLECULAR TESTINGOrdered By: Cosmo Hatch on 07-30-2024 APMOLR [facility] Comment on above: Request has been rec eived for evaluation and the results will be issued separately. [facility] REFERRAL FOR ADDITIONAL BIOM ARKER AND MOLECULAR TESTINGon 07-30-2024 REFERRAL FOR ADDITIONAL BIOMARKER AND MOLECULAR TESTING Normal [facility] Comment on above: Order Comment: Speci men Type: TISSUE SPECIMENOrdering Facility: [facility] Address: [address] [place] [address] Result Comment: Requ est has been received for evaluation and the results will be issued separately. Performed By: #### A PMOL ####[facility] [id number] [place] [address] [place] BRIEF OP NOTon 07-24-2024 BRIEF OP NOT Normal [facility] CT BIOPSY ABD/RETROPERIT MAS Son 07-24-2024 CT BIOPSY ABD/RETROPERIT MASS Normal [facility] HISTORY PHYSICALon HISTORY PHYSICAL Normal [facility] MISMATCH REPAIR PROTEINS BY IHCon 07-24-2024 AP BIOMARKER DISCLAIMER Normal [facility] Comment on above: Order Comment: Speci men Type: TISSUE SPECIMENOrdering Facility: [facility] Address: [address] [place] [address] Result Comment: Vero voss Developed Test (LDT) Disclaimer:Performance characteristics of immunohistochemical, immunofluorescent and chromogenic in-situ hybridization tests have been determined by the performing laboratory within [facility]???s [facility] Pathology and Laboratory Medicine Department ([facility], [facility], [facility], [facility], [facility], [facility], or [facility]) in a manner consistent with CLIA requirements. One or more of these tests have not been cleared or approved by the FDA. RT-PLM is regulated under CLIA as qualified to perform high-complexity testing. These tests are used for clinical purposes. They should not be regarded as investigational or for research. Positive and negative controls stain appropriately. Performed By: #### L [id number] ####[facility] LABCLIA [id number] [place] [id number] [place] AP BLOCK ID A1 Normal [facility] Comment on above: Order Comment: Speci men Type: TISSUE SPECIMENOrdering Facility: [facility] Address: [address] [place] [address] Performed By: #### L [id number] ####[facility] LABCLIA [id number] [address] [address] [facility] BIOMARKER INTERPRETATION COMMENT AND REFERENCE RANGE Normal [facility] Comment on above: Order Comment: Speci men Type: TISSUE SPECIMENOrdering Facility: [facility] Address: [address] [place] [address] Result Comment: Inta ct expression of MMR [...] patients with metastatic carcinoma, Evy et al. ([facility] 2015;372:2509-20) reported that clinical benefit of [...] questions about this result, please call the [facility] at [phone]. Performed By: #### L [id number] ####[facility] LABCLIA [id number] [address], [facility]95 [facility] BIOMARKER METHOD Normal [facility] Comment on above: Order Comment: Speci men Type: TISSUE SPECIMENOrdering Facility: [facility] Address: [address] [place] [address] Performed By: #### L [id number] ####[facility] LABCLIA [id number] [address], [facility] CASE NUMBER [facility] [id number] Normal [facility] Comment on above: Order Comment: Speci men Type: TISSUE SPECIMENOrdering Facility: [facility] Address: [address] [place] [address] Performed By: #### L [id number] ####[facility] LABCLIA [id number] [address] OF [facility] FINAL PERFORMING LAB Normal [facility] Comment on above: Order Comment: Speci men Type: TISSUE SPECIMENOrdering Facility: [facility] Address: [address] [place] [address] Result Comment: Diag nostic interpretation performed at: [facility], [address] [place], [place] [id number] CLIA# [id number] Director: Marky Christian MDElectronically signed out by: Malini Lynn MD Performed By: #### L [id number] ####[facility] LABCLIA [id number] [address] [place] [address] [place] Result Comment: Diag nostic interpretation performed at: [facility], [address] [place] [address] CLIA# [id number] Director: Marky Christian MD Performed By: #### 6 6121-5 ####[facility] LABCLIA [id number] [address] [place] [address] [place] FIXATIVE Formalin, 10% Neutra l Buffered Normal [facility] Comment on above: Order Comment: Speci men Type: TISSUE SPECIMENOrdering Facility: [facility] Address: [address] [place] [address] Performed By: #### L [id number] ####[facility] LABCLIA [id number] [address] [place] [address] [place] MLH1 IMMUNOHISTOCHEMICAL RESULTS Normal/Intact Nuclear Expression Normal [facility] Comment on above: Order Comment: Speci men Type: TISSUE SPECIMENOrdering Facility: [facility] Address: [address] [place] [address] Performed By: #### L [id number] ####[facility] LABCLIA [id number] [address] [place] [address] [place] MLH1 PROMOTER METHYLATION ASSAY No Normal [facility] Comment on above: Order Comment: Speci men Type: TISSUE SPECIMENOrdering Facility: [facility] Address: [address] [place] [address] Performed By: #### L [id number] ####[facility] LABCLIA [id number] [address] [place] [address] [place] MMR INTERPRETATION Proficient (Microsat ellite Stable) Normal [facility] Comment on above: Order Comment: Speci men Type: TISSUE SPECIMENOrdering Facility: [facility] Address: [address] [place] [address] Performed By: #### L [id number] ####[facility] LABCLIA [id number] [address] [place] [address] [place] MSH2 IMMUNOHISTOCHEMICAL RESULTS Normal/Intact Nuclear Expression Normal [facility] Comment on above: Order Comment: Speci men Type: TISSUE SPECIMENOrdering Facility: [facility] Address: [address] [place], [place] [address] Performed By: #### L [id number] ####[facility] LABCLIA [id number] [place] [address] [place] MSH6 IMMUNOHISTOCHEMICAL RESULTS Normal/Intact Nuclear Expression Normal [facility] Comment on above: Order Comment: Speci men Type: TISSUE SPECIMENOrdering Facility: [facility] Address: [address] [place] [address] Performed By: #### L [id number] ####[facility] LABCLIA [id number] [place] [address] [place] PMS2 IMMUNOHISTOCHEMICAL RESULTS Normal/Intact Nuclear Expression Normal [facility] Comment on above: Order Comment: Speci men Type: TISSUE SPECIMENOrdering Facility: [facility] Address: [address] [place] [address] Performed By: #### L [id number] ####[facility] LABCLIA [id number] [place] [address] [place] TUMOR TYPE MMR Metastatic Colorecta l Adenocarcinoma Normal [facility] Comment on above: Order Comment: Speci men Type: TISSUE SPECIMENOrdering Facility: [facility] Address: [address] [place] [address] Performed By: #### L [id number] ####[facility] LABCLIA [id number] [place] [address] [place] NURSING PROGon 07-24-2024 NURSING PROG Normal [facility] Pathology biopsy report Cordell (Tiss)on 07-24-2024 AP DISCLAIMER Normal [facility] Comment on above: Order Comment: Speci men Type: TISSUE SPECIMENOrdering Facility: [facility] Address: [address] [place] [address] Result Comment: Vero voss Developed Test (LDT) Disclaimer:Performance characteristics of immunohistochemical, immunofluorescent, and chromogenic in-situ hybridization tests have been determined by the performing laboratory within [facility] ([facility], [facility], [facility], [facility], [facility], [facility], or [facility]) in a manner consistent with CLIA requirements. One or more of these tests may not have been cleared or approved by the FDA. RT-PLM is regulated under CLIA as qualified to perform high-complexity testing. These tests are used for clinical purposes. These should not be regarded as investigational or for research. Positive and negative controls stain appropriately. Performed By: #### 6 6121-5 ####[facility] LABCLIA [id number] [address] [place] CASE REPORT Normal [facility] Comment on above: Order Comment: Speci men Type: TISSUE SPECIMENOrdering Facility: [facility] Address: [address] [place] [address] Result Comment: Surg ica Pathology Report Case: [id number] Provider: Paola Osorio MD Collected: 07/24/2024 09:56 AMOrdering Location: INTERVENTIONAL Received: 07/24/2024 10:11 AM RADIOLOGYPathologist: Marybeth Montemayor MDSpecimen: Soft Tissue, Mass, Biopsy Performed By: #### 6 6121-5 ####[facility]IA [id number] [address] [place] CLINICAL HISTORY Normal [facility] Comment on above: Order Comment: Speci men Type: TISSUE SPECIMENOrdering Facility: [facility] Address: [address] [place] [address] Result Comment: Pre- op diagnosis:Other intra-abdominal and pelvic swelling, mass and lump [R19.09] Performed By: #### 6 6121-5 ####[facility]IA [id number] [address] [place] DIAGNOSIS COMMENT The history of right colon adenocarcinoma is noted. The carcinoma in the current sample shows similar morphology to the prior colon adenocarcinoma ([id number]), supporting the diagnosis of metastatic adenocarcinoma of colonic origin. [facility] Comment on above: Order Comment: Speci men Type: TISSUE SPECIMENOrdering Facility: [facility] Address: [address] [place] [address] Performed By: #### 6 6121-5 ####[facility] LABCLIA [id number] [place] [id number] [place] FINAL DIAGNOSIS [facility] Comment on above: Order Comment: Speci men Type: TISSUE SPECIMENOrdering Facility: [facility] Address: [address] [place] [address] Result Comment: A. S oft tissue, right lower quadrant mass, biopsy:- Adenocarcinoma, clinically metastatic. See comment. at 1446 EDT Performed By: #### 6 6121-5 ####[facility] LABCLIA [id number] [address] [place] GROSS DESCRIPTION Normal [facility] Comment on above: Order Comment: Speci men Type: TISSUE SPECIMENOrdering Facility: [facility] Address: [address] [place] [address] Result Comment: A. S oft Tissue, Mass, BiopsyReceived in formalin are multiple pieces of dominguez-pink, soft tissue aggregating to 1.5 x 0.4 x 0.1 cm. Totally submitted in one cassette.Gross examination performed at [facility], [address] [place], [place] [address] July 24, 2024 3:19 PM Performed By: #### 6 6121-5 ####[facility] LABIA [id number] [place] [id number] [place] TARGETED ONCOLOGY PANEL NEXT GENERATION SEQUENCING OTHERon 07-24-2024 TARGETED ONCOLOGY PANEL NEXT GENERATION SEQUENCING OTHER [facility] Comment on above: Order Comment: Speci men Type: TISSUE SPECIMENOrdering Facility: [facility] Address: [address] [place] [address] Result Comment: [facility] Targeted Oncology PanelLaboratory Accession Number: [id number] #: [id number] #: [id number] Type: FFPET% Tumor: 70CASE SUMMARY:No clinically significant [...] weresubjected to separate targeted amplification reactions, using [employer] primers designed by [employer] ([employer], [place], [place]). Hotspots and selected fusions in generegions listed below were sequenced using Illumina ([place], [place])2x150 paired-end cycle chemistry. A customized bioinformaticsanalytical platform was used for read alignment (Genome CepiaPMUt15/hg19), variant identification and annotation. Single nucleotidevariants (SNVs), [...] NM_000044 6, 8BRAF NM_004333 11, 15CDK4 NM_000075 4LZBLY6 NM_001904 3, 7-8DDR2 NM_006182 5EGFR NM_005228 3, 7, 12, 15, 18-39PWEM9 NM_004448 8, 17-91BHVL3 NM_001982 2-3, 6, 8-9ERBB4 NM_005235 18ESR1 NM_000125 8FGFR1 NM_023110 12-14, 16-91OTEN9 NM_000141 7-9, 12, 84WKYW8 NM_000142 7, 9, 14, 84YOD24 NM_002067 4, 5GNAQ NM_002072 4, 5GNAS NM_080425 8H3-3A NM_002107 2H3-3B NM_005324 2HRAS NM_005343 2,3IDH1 NM_005896 4IDH2 NM_002168 4JAK1 NM_002227 14-16JAK2 NM_004972 14JAK3 NM_000215 11-12, 15KIT NM_000222 8-11, 13, 17KRAS NM_033360 2-7DIY0M3 NM_002755 2-3, 5MUD8M1 NM_030662 2MET NM_000245 14, 16, 19MTOR NM_004958 30, 39-40, 43, 47, 53NRAS NM_002524 2-4PDGFRA NM_006206 12, 14, 33HYE3EV NM_006218 2, 5-6, 8, 10, 14, 19, 21RAF1 NM_002880 7, 12RET NM_020975 11, 13, 15-16ROS1 NM_002944 36, 38SMO NM_005631 4, 6, 8-9TERT NM_198253 VymhblpoIV99 NM_000546 5, 7, 8*Only hotspots within designated exons are covered, full exons are notsequenced.Genes reported for copy number gains: ALK, AR BRAF, CCND1, CDK4, CDK6,EGFR, ERBB2, FGFR1, FGFR2, FGFR3, FGFR4, KIT, KRAS, MET, MYC, MYCN,PDGFRA, FJO9UHQpllauq detected in RNA:Gene Detected FusionsABL1 EML1::KLS8JVY9 MAGI3::SZA7TMQ A2M::ALK, ACTG2::ALK, ALK::PTPN3, ATIC::ALK, G9bzv76::ALK, CARS::ALK, CLIP4::ALK, CLTC::ALK, DCTN1::ALK, EML4::ALK, MRS4KEJ5::ALK, HIP1::ALK, KIF5B::ALK, KLC1::ALK, MEMO1::ALK, NCOA1::ALK, VFUIX5F::ALK, RANBBP2::ALK, YJX31M6_PIU51E::ALK, SMEK2::ALK, STRN::ALK, TFG::ALK, TPM1::ALK, TPM3::ALK, TPM4::ALK, TPR::ALK, TRAF1::ALK, VCL::ALKAXL ROMERO::MBIPBRAF AGTRAP:BRAF, AKAP9::BRAF, CDC27::BRAF, DGC828E::BRAF, FCHSD1::BRAF, EVIA9556::BRAF, PAPSS1::BRAF, JZT48X4::BRAF, SND1::BRAF, PEK3EI7::BRAF, TRIM24::BRAFEGFR EGFR vIII transcriptERBB2 WIPF2::EWVW6ASX EOD11F6:ERG, TMPRSS2:ERGFGFR1 BAG4::FGFR1, ERLIN2::FGFR1, FGFR1::EGGG5CSCQ9 FGFR2::AFF3, FGFR2::BICC1, FGFR2::CASP7, FGFR2::CIT, FGFR2::FFFG7376_JNXW8, FGFR2::MGEA5, FGFR2::OFD1, FGFR2::TACC1, RWD46Z6::TYUU8OOSR6 FGFR3::AES, FGFR3::KLCSQ7I3, FGFR3::ELAVL3, FGFR3::FZCU8GER MET Exon 14 Skipping, PCLIO3Q1::MET, E4rgh55::MET, CAPZA2::MET, OXR1::MET, TFG::MET, TPR::MET, PTPRZ1::METNTRK1 BCAN::NTRK1, CD74::NTRK1, REX::NTRK1, PYW2PT6::NTRK1, LMNA::NTRK1, MPRIP::NTRK1, NFASC::NTRK1, NTRK1::LMDI6L8, MSS588::NTRK1, SQSTM1::NTRK1, SSBP2::NTRK1, TFG::NTRK1, TPM3::NTRK1, TPR::AVPP6HQQF1 AFAP1::NTRK2, AGBL4::NTRK2, NACC2::NTRK2, QKI::NTRK2, SQSTM1::NTRK2, TRIM24::NTRK2, VCL::TVLG4CDPA9 BTBD1::NTRK3, COX5A::NTRK3, ETV6::VCRK3TPJDQB SCAF11::PDGFRAPPARG PAX8::PPARGRAF1 P3FVCA1::RAF1, ESRP1::PXG5ORKH K21dll32::RELARET ACBD5::RET, AFAP1::RET, AKAP13::RET, CCDC6::RET, CUX1::RET, ERC1::RET, FKBP15::RET, GOLGA5::RET, HOOK3::RET, QRTM6399::RET, KIF5B::RET, KTN1::RET, NCOA4::RET, PCM1::RET, MXRNP0W::RET, RUFY2::RET, MBZLP1P::RET, ZVL9OF4::RET, TRIM24::RET, TRIM27::RET, TRIM33::RETROS1 CCDC6:ROS1, CD74::ROS1, CEP85L::ROS1, CLIP1::ROS1, CLTC::ROS1, ERC1::ROS1, EZR::ROS1, GOPC::ROS1, HLA_A::ROS1, KDELR2::ROS1, TPQJ6777::ROS1, LRIG3::ROS1, MSN::ROS1, MYO5A::ROS1, PPFIBP1::ROS1, PWWP2A::ROS1, SDC4::ROS1, EDR15G7::ROS1, TFG::ROS1, TPM3::ROS1, ZCCHC8::SSB0XOQNOT8 TMPRSS2::ERG, TMPRSS2::ETV1, TMPRSS2::ETV4, TMPRSS2::LLD7BEXRHLDIIP:1) Calderon MM, et al. Standards and Guidelines for the Interpretation andReporting of Sequence Variants in Cancer: A Joint ConsensusRecommendation of the Association for Molecular Pathology, [facility] of Clinical Oncology, and College of [place] Pathologists. JMol Diagn. 2017 Mar;19(1):4-23. doi: 10.1016/j.jmoldx.2016.10.002.PMID: 58380354; PMCID: DVG7925541.2) Mat Fajardo, Lazaro OSMAN, Leo AM. Recurrent gene fusions inprostate cancer. [place]sy Rev Cancer. 2008 Sep;8(7):497-511. doi:10.1038/rqo2020. Epub 2007Sep 12. PMID: 14782297; PMCID: FRE7777499.3) Brant SC, Fady LA. The genomic landscape of prostate cancer.Front Endocrinol ([facility]). 2011August 09;3:69. doi:10.3389/fendo.2012.13222. PMID: 36336599; AND0371283.4) Dwaine C, et al. Breast Cancer Genomics: Primary and Most CommonMetastases. Cancers ([place]). 2021Sep 14;14(13):3046. doi:10.3390/qzwrqud38996470. PMID: 77022429; PMCID: SDZ0128991.5) Venice R, Urbano ANJ, CJ. Information Assurance Analyst Oncogenes but Not as We KnowThem: Targetable Fusion Genes in Breast Cancer. Cancer Discov. 2018May;8(3):272-275. doi: 10.1158/6354-2943.CD-18-0091. PMID: 26627535;PMCID: JKY8299019.6) Gera A, Krystian J, Cristobal JW, Serafin N, Chidi T, Garett CS. The GenomicLandscape of Thyroid Cancer Tumourigenesis and Implications forImmunotherapy. Cells. 2020July 25;10(5):1082. doi:10.3390/gbstx23260852. PMID: 41278270; PMCID: QPO6861499.7) Latesha GALARZA, et al. Molecular Biomarkers for the Evaluation ofColorectal Cancer: Guideline From the [place] Society for ClinicalPathology, College of [place] Pathologists, Association for MolecularPathology, and the [place] Society of Clinical Oncology. J ClinOncol. 2017 July 25;35(13):6585-0668. doi: 10.1200/JCO.2016.71.9807.Epub 2016May 02. PMID: 45346280.8) Margarita ROJAS, et al. Updated Molecular Testing Guideline for theSelection of Lung Cancer Patients for Treatment With Targeted TyrosineKinase Inhibitors: Guideline From the College of AmericanPathologists, the International Association for the Study of LungCancer, and the Association for Molecular Pathology. Arch Pathol LabMed. 2018 May;142(3):321-346. doi: 10.5858/arpa.2891-0868-MJ. Ruxt0277 Apr 17. PMID: 86011819.9) Cancer Genome [place] Research Network. Comprehensive genomiccharacterization defines human glioblastoma genes and core pathways.Nature. 2007Jan 16;455(2805):1065-8. doi: 10.1038/cdfsyf00789. Hlzb8225 Nov 28. Erratum in: Nature. 2012May 24;724(3840):506. PMID:60570241; PMCID: IDY0134617.10) Linda MY, Alina M. Glioblastoma Genomics: A Very ComplicatedStory. In: De Vleesmeleuwer S, news video editor. Glioblastoma [Internet].[place] ([place]): [employer]; 2016Dec 21. Chapter 1. PMID:65661155.11) June S, Vivienne N, Sherrie H. Melanoma genomics: a fswrd-jl-zvy-artreview of practical clinical applications. Br J Dermatol. ;185(2):272-281. doi: 10.1111/bjd.92371. Epub 2020Aug 30. PMID:55873754.12) Gita L, Dominguez DE. An update on molecular genetics ofgastrointestinal stromal tumours. J Clin Pathol. 2006Jun;59(6):557-63. doi: 10.1136/jcp.2005.642887. PMID: 79607698; PMCID:EEO0011823.13) Jon DOWLING, Dulce M, Jordan PJB, Belkis TL, Maryjane LL. Molecularprofiling for precision cancer therapies. Genome Med. 2019;12(1):8. doi: 10.1186/t03816-906-9591-3. PMID: 64956838; PMCID:TVL7166160.14) John Martinez et al. Somatic Genomic Testing in Patients WithMetastatic or Advanced Cancer: ASCO Provisional Clinical Opinion. JClin Oncol. 2021Jul 04;40(11):5480-0945. doi: 10.1200/JCO.21.30737.Epub 2021May 13. Erratum in: J Clin Oncol. 2021Sep 13;40(18):2068.PMID: 07870299.15) John Martinez et al. OncoKB: OncoKB: A Precision OncologyKnowledge Base. JCO Precis Oncol. 2017 Sep;2017:PO.17.38401. doi:10.1200/PO.17.11822. Epub 2016August 09. PMID: 53808327; PMCID:BTU2440723.DISCLAIMER:This test was developed and its performance characteristics determinedby [facility]'s Pathology and Laboratory Medicine Department. Ithas not been cleared or approved by the FDA. [facility] is regulated under CLIAas certified to perform high-complexity testing. This test is used forclinical purposes. It should not be regarded as investigational or forresearch.Test performed at [facility], [address] [place] [address]. CLIA Number: [id number] performed by Marybeth Montemayor MD, PhD Performed By: #### T OPTO ####[facility] LIMSCLIA [id number] [place] [address] [place] CBC W Auto Differential pane l (Bld)on 07-19-2024 Basophils (Bld) [#/Vol] 0.07 10*3/uL Normal <0.11 [facility] Comment on above: Order Comment: Speci men Type: BLOOD SPECIMENOrdering Facility: [facility] Address: [address] [place] [address] Performed By: #### 5 7021-8 ####[facility] [id number] [place] [address] [place] Basophils/100 WBC (Bld) 1.2 % Normal [facility] Comment on above: Order Comment: Speci men Type: BLOOD SPECIMENOrdering Facility: [facility] Address: [address] [place] [address] Performed By: #### 5 7021-8 ####[facility] H[facility]PITALGUMEA [id number] [place] [address] [place] Differential cell count method Nom (Bld) Auto Normal [facility] Comment on above: Order Comment: Speci men Type: BLOOD SPECIMENOrdering Facility: [facility] Address: [address] [place] [address] Performed By: #### 5 7021-8 ####[facility] BISHNUCRUZITO [id number] [place] [address] [place] Eosinophils (Bld) [#/Vol] 0.51 10*3/uL High <0.46 [facility] Comment on above: Order Comment: Speci men Type: BLOOD SPECIMENOrdering Facility: [facility] Address: [address] [place] [address] Performed By: #### 5 7021-8 ####[facility]ITALGUMEA [id number] [place] [address] [place] Eosinophils/100 WBC (Bld) 8.5 % Normal [facility] Comment on above: Order Comment: Speci men Type: BLOOD SPECIMENOrdering Facility: [facility] Address: [address] [place] [address] Performed By: #### 5 7021-8 ####[facility] [id number] [place] [address] [place] Erythrocyte distribution width (RBC) [Ratio] 16.3 % High 11.5-15.0 [facility] Comment on above: Order Comment: Speci men Type: BLOOD SPECIMENOrdering Facility: [facility] Address: [address] [place] [address] Performed By: #### 5 7021-8 ####[facility] BISHNUWINSTON SALEMGUME [id number] [place] [address] [place] Hematocrit (Bld) [Volume fraction] 29.6 % Low 36.0-46.0 [facility] Comment on above: Order Comment: Speci men Type: BLOOD SPECIMENOrdering Facility: [facility] Address: [address] [place] [address] Performed By: #### 5 7021-8 ####[facility]ITALNCMOUNT[facility]STAR [facility] [id number] [place] [address] [place] Hemoglobin (Bld) [Mass/Vol] 9.8 g/dL Low 11.5-15.5 [facility] Comment on above: Order Comment: Speci men Type: BLOOD SPECIMENOrdering Facility: [facility] Address: [address] [place] [address] Performed By: #### 5 7021-8 ####[facility] [id number] [place] [address] [place] Immature granulocytes (Bld) [#/Vol] 10*3/uL Normal <0.10 [facility] Comment on above: Order Comment: Speci men Type: BLOOD SPECIMENOrdering Facility: [facility] Address: [address] [place] [address] Performed By: #### 5 7021-8 ####[facility] [id number] [place] [address] [place] Immature granulocytes/100 WBC (Bld) 0.3 % Normal [facility] Comment on above: Order Comment: Speci men Type: BLOOD SPECIMENOrdering Facility: [facility] Address: [address] [place] [address] Performed By: #### 5 7021-8 ####[facility] ERWNCLIA [id number] [place] [address] [place] Lymphocytes (Bld) [#/Vol] 0.93 10*3/uL Low 1.00-4.00 [facility] Comment on above: Order Comment: Speci men Type: BLOOD SPECIMENOrdering Facility: [facility] Address: [address] [place] [address] Performed By: #### 5 7021-8 ####[facility] [id number] [place] [address] [place] Lymphocytes/100 WBC (Bld) 15.6 % Normal [facility] Comment on above: Order Comment: Speci men Type: BLOOD SPECIMENOrdering Facility: [facility] Address: [address] [place] [address] Performed By: #### 5 7021-8 ####[facility] [id number] [place] [address] [place] MCH (RBC) [Entitic mass] 34.6 pg High 26.0-34.0 [facility] Comment on above: Order Comment: Speci men Type: BLOOD SPECIMENOrdering Facility: [facility] Address: [address] [place] [address] Performed By: #### 5 7021-8 ####[facility] [id number] [place] [address] [place] MCHC (RBC) [Mass/Vol] 33.1 g/dL Normal 30.5-36.0 [facility] Comment on above: Order Comment: Speci men Type: BLOOD SPECIMENOrdering Facility: [facility] Address: [address] [place] [address] Performed By: #### 5 7021-8 ####[facility] HOSPITALNCLI [id number] [place] [address] [place] MCV (RBC) [Entitic vol] 104.6 fL High 80.0-100.0 [facility] Comment on above: Order Comment: Speci men Type: BLOOD SPECIMENOrdering Facility: [facility] Address: [address] [place] [address] Performed By: #### 5 7021-8 ####[facility]PITALNCMOUNTAINSTAR [facility]ALTH[facility] [id number] [place] [address] [place] Monocytes (Bld) [#/Vol] 0.76 10*3/uL Normal <0.87 [facility] Comment on above: Order Comment: Speci men Type: BLOOD SPECIMENOrdering Facility: [facility] Address: [address] [place] [address] Performed By: #### 5 7021-8 ####[facility]ITALNCM[facility]ALTH[facility] [id number] [place] [address] [place] Monocytes/100 WBC (Bld) 12.7 % Normal [facility] Comment on above: Order Comment: Speci men Type: BLOOD SPECIMENOrdering Facility: [facility] Address: [address] [place] [address] Performed By: #### 5 7021-8 ####[facility] [id number] [place] [address] [place] Neutrophils (Bld) [#/Vol] 3.69 10*3/uL Normal 1.45-7.50 [facility] Comment on above: Order Comment: Speci men Type: BLOOD SPECIMENOrdering Facility: [facility] Address: [address] [place] [address] Performed By: #### 5 7021-8 ####[facility]ITALNCMOUNT[facility]STAR [facility]ALTH[facility] [id number] [place] [address] [place] Neutrophils/100 WBC (Bld) 61.7 % Normal [facility] Comment on above: Order Comment: Speci men Type: BLOOD SPECIMENOrdering Facility: [facility] Address: [address] [place] [address] Performed By: #### 5 7021-8 ####[facility] HOSPITALFUAD [id number] [place] [address] [place] Nucleated RBC (Bld) [#/Vol] 10*3/uL Normal <0.01 [facility] Comment on above: Order Comment: Speci men Type: BLOOD SPECIMENOrdering Facility: [facility] Address: [address] [place] [address] Performed By: #### 5 7021-8 ####[facility]PITALNCMOUNTAINSTAR [facility]ALTH[facility] [id number] [place] [address] [place] Nucleated RBC/100 WBC (Bld) [Ratio] 0.0 /100 WBC Normal [facility] Comment on above: Order Comment: Speci men Type: BLOOD SPECIMENOrdering Facility: [facility] Address: [address] [place] [address] Performed By: #### 5 7021-8 ####[facility]ITALA [id number] [place] [address] [place] Platelet mean volume (Bld) [Entitic vol] 8.5 fL Low 9.0-12.7 [facility] Comment on above: Order Comment: Speci men Type: BLOOD SPECIMENOrdering Facility: [facility] Address: [address] [place] [address] Performed By: #### 5 7021-8 ####[facility]PITALNCLIA [id number] [place] [address] [place] Platelets (Bld) [#/Vol] 187 10*3/uL Normal 150-400 [facility] Comment on above: Order Comment: Speci men Type: BLOOD SPECIMENOrdering Facility: [facility] Address: [address] [place] [address] Performed By: #### 5 7021-8 ####[facility]PITALNCLIA [id number] [place] [address] [place] RBC (Bld) [#/Vol] 2.83 10*6/uL Low 3.90-5.20 [facility] Comment on above: Order Comment: Speci men Type: BLOOD SPECIMENOrdering Facility: [facility] Address: [address] [place] [address] Performed By: #### 5 7021-8 ####[facility] [id number] [place] [address] [place] WBC (Bld) [#/Vol] 5.98 10*3/uL Normal 3.70-11.00 [facility] Comment on above: Order Comment: Speci men Type: BLOOD SPECIMENOrdering Facility: [facility] Address: [address] [place] [address] Performed By: #### 5 7021-8 ####[facility]ITALA [id number] [place] [address] [place] CNOVSPon 07-19-2024 CNOVSP Normal [facility] Comprehensive metabolic 2000 panelon 07-19-2024 Albumin [Mass/Vol] 4.1 g/dL Normal 3.9-4.9 [facility] Comment on above: Order Comment: Speci men Type: BLOOD SPECIMENOrdering Facility: [facility] Address: [address] [place] [address] Performed By: #### 2 4323-8 ####[facility]ITALNCLIA [id number] [place] [address] [place] ALP [Catalytic activity/Vol] 65 U/L Normal 34-123 [facility] Comment on above: Order Comment: Speci men Type: BLOOD SPECIMENOrdering Facility: [facility] Address: [address] [place] [address] Performed By: #### 2 4323-8 ####[facility] MILLTOWNCLIA [id number] [place] [address] [place] ALT [Catalytic activity/Vol] 7 U/L Normal 7-38 [facility] Comment on above: Order Comment: Speci men Type: BLOOD SPECIMENOrdering Facility: [facility] Address: [address] [place] [address] Performed By: #### 2 4323-8 ####[facility] MILLTOWNCLIA [id number] [place] [address] [place] Anion gap [Moles/Vol] 8 mmol/L Normal 8-15 [facility] Comment on above: Order Comment: Speci men Type: BLOOD SPECIMENOrdering Facility: [facility] Address: [address] [place] [address] Performed By: #### 2 4323-8 ####[facility] MILLTOWNCLIA [id number] [place] [address] [place] AST [Catalytic activity/Vol] 15 U/L Normal 13-35 [facility] Comment on above: Order Comment: Speci men Type: BLOOD SPECIMENOrdering Facility: [facility] Address: [address] [place] [address] Performed By: #### 2 4323-8 ####[facility] MILLTOWNCLIA [id number] [place] [address] [place] Bilirubin [Mass/Vol] 0.2 mg/dL Normal 0.2-1.3 [facility] Comment on above: Order Comment: Speci men Type: BLOOD SPECIMENOrdering Facility: [facility] Address: [address] [place] [address] Performed By: #### 2 4323-8 ####[facility] MILLTOWNCLIA [id number] [place] [address] [place] Calcium [Mass/Vol] 9.1 mg/dL Normal 8.5-10.2 [facility] Comment on above: Order Comment: Speci men Type: BLOOD SPECIMENOrdering Facility: [facility] Address: [address] [place] [address] Performed By: #### 2 4323-8 ####[facility]OSPITALNCLIA [id number] [place] [address] [place] Chloride [Moles/Vol] 105 mmol/L Normal 98-107 [facility] Comment on above: Order Comment: Speci men Type: BLOOD SPECIMENOrdering Facility: [facility] Address: [address] [place] [address] Performed By: #### 2 4323-8 ####[facility]PITALNCLIA [id number] [place] [address] [place] CO2 [Moles/Vol] 25 mmol/L Normal 22-30 [facility] Comment on above: Order Comment: Speci men Type: BLOOD SPECIMENOrdering Facility: [facility] Address: [address] [place] [address] Performed By: #### 2 4323-8 ####[facility]PITALA [id number] [place] [address] [place] Creatinine [Mass/Vol] 0.77 mg/dL Normal 0.58-0.96 [facility] Comment on above: Order Comment: Speci men Type: BLOOD SPECIMENOrdering Facility: [facility] Address: [address] [place] [address] Performed By: #### 2 4323-8 ####[facility]PITALNCLIA [id number] [place] [address] [place] Creatinine and Glomerular filtration rate.predicted panel (S/P/Bld) 86 mL/min/1.73m??? Normal >=60 [facility] Comment on above: Order Comment: Speci men Type: BLOOD SPECIMENOrdering Facility: [facility] Address: [address] [place] [address] Result Comment: Sana mated Glomerular Filtration Rate [...] By: #### 2 4323-8 ####[facility] [id number] [place] [address] [place] Glucose [Mass/Vol] 117 mg/dL High 74-99 [facility] Comment on above: Order Comment: Umesh baugh Type: BLOOD SPECIMENOrdering Facility: [facility] Address: [address] [place] [address] Result Comment: The [place] [employer] (ADA) provides guidance for cutoff [...] Standards of Medical Care in Diabetes 2016, [place] [employer]. Diabetes Care. 2016.39(Suppl 1). Performed By: #### 2 4323-8 ####[facility] HOSPITALA [id number] [place] [address] [place] Potassium [Moles/Vol] 3.8 mmol/L Normal 3.7-5.1 [facility] Comment on above: Order Comment: Umesh baugh Type: BLOOD SPECIMENOrdering Facility: [facility] Address: [address] [id number] Performed By: #### 2 4323-8 ####[facility] HOSPITALLILetha [id number] [place] [address] [place] Protein [Mass/Vol] 6.6 g/dL Normal 6.3-8.0 [facility] Comment on above: Order Comment: Speci men Type: BLOOD SPECIMENOrdering Facility: [facility] Address: [address] [place] [address] Performed By: #### 2 4323-8 ####[facility] [id number] [place] [address] [place] Sodium [Moles/Vol] 138 mmol/L Normal 136-144 [facility] Comment on above: Order Comment: Abdouli men Type: BLOOD SPECIMENOrdering Facility: [facility] Address: [address] [place] [address] Performed By: #### 2 4323-8 ####[facility] [id number] [place] [address] [place] Urea nitrogen [Mass/Vol] 16 mg/dL Normal 7-21 [facility] Comment on above: Order Comment: Speci men Type: BLOOD SPECIMENOrdering Facility: [facility] Address: [address] [place] [address] Performed By: #### 2 4323-8 ####[facility] BISHNUCucaNCLIA [id number] [place] [address] [place] PT panel Coag (PPP)on 2024 INR Coag (PPP) [Relative time] 0.9 {INR} Normal 0.9-1.3 [facility] Comment on above: Order Comment: Speci men Type: BLOOD SPECIMENOrdering Facility: [facility] Address: [address] [place] [address] Result Comment: Edwige min K Antagonist (VKA) Therapeutic Range: INR 2 to 3 (Target INR of 2.5)Note: For patients treated with VKA drugs, such as warfarin, the [place] [employer] 2012 Guideline recommends [...] of 3).Summer HARRIS, et al. Chest 2012, 141:7S-47SNishimbobby RA, et al. [facility] 2017, 70: 252-289 Performed By: #### 3 4528-0 ####[facility] [id number] [place] [address] [place] PT Coag (PPP) [Time] 9.8 s Normal <13.1 [facility] Comment on above: Order Comment: Speci men Type: BLOOD SPECIMENOrdering Facility: [facility] Address: [address] [place] [address] Performed By: #### 3 4528-0 ####[facility] [id number] [place] [address] [place] CNPNon 07-18-2024 CNPN Normal [facility] Absolute lymphocyte countOrd ered By: Milagro Ying on 07-11-2024 Lymphocytes Auto (Unsp spec) [#/Vol] 1.77 10*3/uL 0.83-4.51 [facility] Absolute neutrophil countOrd ered By: Milagro Ying on 07-11-2024 Neutrophils (Bld) [#/Vol] 8.9 10*3/uL High 2.0-7.7 [facility] Anion gap in Serum or Plasma Ordered By: Milagro Ying on 07-11-2024 Anion gap [Moles/Vol] 15 mmol/L 5-15 [facility] Automated lymphocyte count a s percentage of total leukocytesOrdered By: Milagro Ying on 07-11-2024 Lymphocytes/100 WBC Auto (Unsp spec) 15.4 % Low 19-41 [facility] BUN/creatinine ratioOrdered By: Milagro Ying on 07-11-2024 Urea nitrogen/Creatinine [Mass ratio] 25.9 mg/mg High 10-20 [facility] Basophil percentageOrdered B y: Milagro Chapinromeo on 07-11-2024 Basophils/100 WBC (Bld) 0.3 % 0-1 [facility] Bilirubin Test strip Ql (U)O rdered By: Milagro Chapinromeo on 07-11-2024 Bilirubin Ql (U) Negative Negative [facility] Bilirubin, totalOrdered By: Milagro Chapinromeo on 07-11-2024 Bilirubin [Mass/Vol] 0.55 mg/dL 0.00-1.30 [facility] CBC W/Diff, Automatedon 06-25 Absolute Lymph 1.77 X10 3/uL Normal 0.83-4.51 [facility] Comment on above: Performed By: #### L 501.2450, L500.4050, L100.0100 ####[facility] [address] [place], [address] Absolute Neut 8.9 X10 3/uL High 2.0-7.7 [facility] Comment on above: Performed By: #### L 501.2450, L500.4050, L100.0100 ####[facility] [address] [place], [address] Basophils/100 WBC (Bld) 0.3 % Normal 0-1 [facility] Comment on above: Performed By: #### L 501.2450, L500.4050, L100.0100 ####[facility] [address] [place], [address] Eosinophils/100 WBC (Bld) 0.0 % Normal 0-5 [facility] Comment on above: Performed By: #### L 501.2450, L500.4050, L100.0100 ####[facility] [address] [place], [address] Erythrocyte distribution width (RBC) [Ratio] 16.2 % High 11.6-14.6 [facility] Comment on above: Performed By: #### L 501.2450, L500.4050, L100.0100 ####[facility] [address] [place], [address] Hematocrit (Bld) [Volume fraction] 31.4 % Low 37-47 [facility] Comment on above: Performed By: #### L 501.2450, L500.4050, L100.0100 ####[facility] [address] [place], [address] Hemoglobin (Bld) [Mass/Vol] 11.1 g/dL Low 12.0-15.0 [facility] Comment on above: Performed By: #### L 501.2450, L500.4050, L100.0100 ####[facility] [address] [place], [address] IG% 0.900 Normal 0.0-0.9 [facility] Comment on above: Result Comment: IG% - Immature Granulocytes (promyelocytes, myelocytes andmetamyelocytes) > 1% indicates that a LEFT SHIFT is Present. Performed By: #### L 501.2450, L500.4050, L100.0100 ####[facility] [address] [place], [address] Lymphocytes/100 WBC (Bld) 15.4 % Low 19-41 [facility] Comment on above: Performed By: #### L 501.2450, L500.4050, L100.0100 ####[facility] [address] [place], [address] MCH (RBC) [Entitic mass] 35.1 pg High 27.0-32.0 [facility] Comment on above: Performed By: #### L 501.2450, L500.4050, L100.0100 ####[facility] [address] [place], [address] MCHC (RBC) [Mass/Vol] 35.4 g/dL Normal 32-36 [facility] Comment on above: Performed By: #### L 501.2450, L500.4050, L100.0100 ####[facility] [address] [place], [address] MCV (RBC) [Entitic vol] 99.4 fL High 81-99 [facility] Comment on above: Performed By: #### L 501.2450, L500.4050, L100.0100 ####[facility] [address] [place], [address] Monocytes/100 WBC (Bld) 6.6 % Normal 0-10 [facility] Comment on above: Performed By: #### L 501.2450, L500.4050, L100.0100 ####[facility] [address] [place], [address] Neutrophils/100 WBC (Bld) 76.8 % High 47-70 [facility] Comment on above: Performed By: #### L 501.2450, L500.4050, L100.0100 ####[facility] [address] [place], [address] Nucleated RBC (Bld) [#/Vol] 0 10*3/uL Normal 0-5 [facility] Comment on above: Performed By: #### L 501.2450, L500.4050, L100.0100 ####[facility] [address] [place], [address] Platelet mean volume (Bld) [Entitic vol] 9.1 fL Normal 6.2-12.0 [facility] Comment on above: Performed By: #### L 501.2450, L500.4050, L100.0100 ####[facility] [address] [place], [address] Platelets (Bld) [#/Vol] 309 10*3/uL Normal 150-450 [facility] Comment on above: Performed By: #### L 501.2450, L500.4050, L100.0100 ####[facility] [address] [place], [address] RBC (Bld) [#/Vol] 3.16 10*6/uL Low 4.2-5.4 [facility] Comment on above: Performed By: #### L 501.2450, L500.4050, L100.0100 ####[facility] [address] [place], [address] RDW SD 60.1 fl High 35.1-43.9 [facility] Comment on above: Performed By: #### L 501.2450, L500.4050, L100.0100 ####[facility] [address] [place], [address] WBC (Bld) [#/Vol] 11.5 10*3/uL High 4.4-11.0 [facility] Comment on above: Performed By: #### L 501.2450, L500.4050, L100.0100 ####[facility] [address] [place], [address] CNPNon 07-11-2024 CNPN Normal [facility] CT ABD/PEL W IVCONon 025 CT ABD/PEL W IVCON Normal [facility] CT Abdomen and Pelvis W cont rast Hardeep 07-11-2024 IMPRESSION: 1. New and enlarging necrotic lesions in the right lower quadrant, likely worsening metastasis. No ascites. 2. No new hepatic lesion or lymphadenopathy. Employee Operations Examiner: BRENTON Transcribe Date/Time: Jul 11 2024 2:41P Dictated by : MALLY MORRISON MD This examination was interpreted and the report reviewed and electronically signed by: MALLY MORRISON MD on Jul 11 2024 3:00PM [facility] DIVISION OF RADIOLOGY * * *Final Report* * * DATE OF EXAM: Jul 11 2024 2:32PM [place] [facility]/PEL W IVCON [...] No additional findings. DIVISION OF RADIOLOGY Provider, Mario Blakely - 07/11/2024 * * *Final Report* * * DATE OF EXAM: Jul 11 2024 2:32PM [facility] 0530 - CT ABD/PEL W IVCON [...] 2. No new hepatic lesion or lymphadenopathy. Employee Operations Examiner: [employer] Transcribe Date/Time: Jul 11 2024 2:41P Dictated by : MALLY MORRISON MD This examination was interpreted and the report reviewed and electronically signed by: MALLY MORRISON MD on Jul 11 2024 3:00PM EST [facility] Radiology Study observation (narrative) [facility] CT Abdomen and Pelvis W cont rast IVOrdered By: Ccf Provider on 07-11-2024 [facility] Carbon dioxide, total [Moles /volume] in Central venous bloodOrdered By: Milagro Ying on 07-11-2024 CO2 [Moles/Vol] 23.1 mmol/L 21.0-32.0 [facility] Chloride assayOrdered By: Ronda Ying on 07-11-2024 Chloride [Moles/Vol] 99 mmol/L 98-108 [facility] Comprehensive Metabolic Prof ilon 07-11-2024 Albumin [Mass/Vol] 4.6 g/dL Normal 3.4-4.8 [facility] Comment on above: Performed By: #### L 501.2450, L500.4050, L100.0100 ####[facility] [address] [place], [address] Albumin/Globulin [Mass ratio] 1.6 {ratio} Normal 0.9-2.4 [facility] Comment on above: Performed By: #### L 501.2450, L500.4050, L100.0100 ####[facility] [address] [place], [address] ALK PHOS 56 U/L Normal 35-104 [facility] Comment on above: Performed By: #### L 501.2450, L500.4050, L100.0100 ####[facility] [address] [place], [address] ALT [Catalytic activity/Vol] 10 U/L Normal <=34 [facility] Comment on above: Performed By: #### L 501.2450, L500.4050, L100.0100 ####[facility] [address] [place], [address] AST [Catalytic activity/Vol] 23 U/L Normal <=31 [facility] Comment on above: Performed By: #### L 501.2450, L500.4050, L100.0100 ####[facility] [address] [place], [address] Bilirubin [Mass/Vol] 0.55 mg/dL Normal 0.00-1.30 [facility] Comment on above: Performed By: #### L 501.2450, L500.4050, L100.0100 ####[facility] [address] [place], [address] BUN/CRE 25.9 RATIO High 10-20 [facility] Comment on above: Performed By: #### L 501.2450, L500.4050, L100.0100 ####[facility] [address] [place], [address] Calcium [Mass/Vol] 9.5 mg/dL Normal 7.6-11.0 [facility] Comment on above: Performed By: #### L 501.2450, L500.4050, L100.0100 ####[facility] [address] [place], [address] Chloride [Moles/Vol] 99 mmol/L Normal 98-108 [facility] Comment on above: Performed By: #### L 501.2450, L500.4050, L100.0100 ####[facility] [address] [place], [address] CO2 [Moles/Vol] 23.1 mmol/L Normal 21.0-32.0 [facility] Comment on above: Performed By: #### L 501.2450, L500.4050, L100.0100 ####[facility] [address] [place], [address] Creatinine [Mass/Vol] 0.72 mg/dL Normal 0.70-1.20 [facility] Comment on above: Performed By: #### L 501.2450, L500.4050, L100.0100 ####[facility] [address] [place], [address] ECRCL 46.24 ml/min Low 50-250 [facility] Comment on above: Performed By: #### L 501.2450, L500.4050, L100.0100 ####[facility] [address] [place], [address] GAP 15 Normal 5-15 [facility] Comment on above: Performed By: #### L 501.2450, L500.4050, L100.0100 ####[facility] [address] [place], [address] GFR/1.73 sq M.predicted among non-blacks MDRD (S/P/Bld) [Vol rate/Area] 92 mL/min/{1.73_m2} Normal >60 [facility] Comment on above: Result Comment: mL/m in/1.73m2 CKD-EPI Creatinine Equation (2020) Performed By: #### L 501.2450, L500.4050, L100.0100 ####[facility] [address] [place], [address] Globulin (S) [Mass/Vol] 2.9 g/dL Normal 2.2-4.2 [facility] Comment on above: Performed By: #### L 501.2450, L500.4050, L100.0100 ####[facility] [address] [place], [address] Glucose [Mass/Vol] 116 mg/dL High 70-99 [facility] Comment on above: Performed By: #### L 501.2450, L500.4050, L100.0100 ####[facility] [address] [place], [address] Potassium [Moles/Vol] 3.4 mmol/L Normal 3.3-5.1 [facility] Comment on above: Performed By: #### L 501.2450, L500.4050, L100.0100 ####[facility] [address] [place], [address] Sodium [Moles/Vol] 137 mmol/L Normal 133-145 [facility] Comment on above: Performed By: #### L 501.2450, L500.4050, L100.0100 ####[facility] [address] [place], [address] T PROT 7.5 g/dL Normal 5.9-8.4 [facility] Comment on above: Performed By: #### L 501.2450, L500.4050, L100.0100 ####[facility] [address] [place], [address] Urea nitrogen [Mass/Vol] 19 mg/dL Normal 4-19 [facility] Comment on above: Performed By: #### L 501.2450, L500.4050, L100.0100 ####[facility] [address] [place], [address] Emergency Department Summary on 07-11-2024 Emergency Department Summary Normal [facility] Eosinophil percentageOrdered By: Milagro Ying on 07-11-2024 Eosinophils/100 WBC (Bld) 0.0 % 0-5 [facility] Erythrocyte distribution wid th (RBC) [Ratio]Ordered By: Milagro Ying on 07-11-2024 Erythrocyte distribution width (RBC) [Entitic vol] 60.1 fL High 35.1-43.9 [facility] Erythrocyte distribution wid th ratioOrdered By: Milagro Ying on 07-11-2024 Erythrocyte distribution width (RBC) [Ratio] 16.2 % High 11.6-14.6 [facility] Erythrocyte distribution wid th standard deviationOrdered By: Milagro Ying on 07-11-2024 Erythrocyte distribution width (RBC) [Ratio] 60.1 fl High 35.1-43.9 [facility] Estimation of creatinine lupe aranceOrdered By: Milagro Ying on 07-11-2024 Estimated Creatinine Clearance Calc 46.24 ml/min Low 50-250 [facility] GFR/1.73 sq M.predicted mayco g non-blacks MDRD (S/P/Bld) [Vol rate/Area]Ordered By: Milagro Ying on 07-11-2024 Estimated GFR (MDRD) Non-Af Amer 92 >60 [facility] Comment on above: mL/min/1.73m2 CKD-EP I Creatinine Equation (2020) Glomerular filtration rate ( GFR) estimation/1.73 sq m using serum, plasma, or whole bOrdered By: Milagro Ying on 07-11-2024 GFR/1.73 sq M.predicted among non-blacks MDRD (S/P/Bld) [Vol rate/Area] 92 mL/min/{1.73_m2} >60 [facility] Comment on above: mL/min/1.73m2 CKD-EP I Creatinine Equation (2020) Hematocrit Auto (Bld) [Volum e fraction]Ordered By: Milagro Ying 07-11-2024 Hematocrit (Bld) [Volume fraction] 31.4 % Low 37-47 [facility] Hemoglobin measurementOrdere d By: Milagro Ying on 07-11-2024 Hemoglobin (Bld) [Mass/Vol] 11.1 g/dL Low 12.0-15.0 [facility] Hyaline casts LM.LPF (Urine sed) [#/Area]Ordered By: Milagro Ying on 07-11-2024 Hyaline casts (Urine sed) [#/Area] 0 /[LPF] 0-5 [facility] Immature granulocytes/100 WB C Auto (Bld)Ordered By: Milagro Ying on 07-11-2024 Immature granulocytes/100 WBC (Bld) 0.900 % 0.0-0.9 [facility] Comment on above: IG% - Immature Granu locytes (promyelocytes, myelocytes and metamyelocytes) > 1% indicates that a LEFT SHIFT is Present. Ketones Test strip Ql (U)Ord ered By: Milagro Ying on 07-11-2024 Ketones Ql (U) Negative Negative [facility] Laboratory - Chemistry and C hemistry - challengeOrdered By: Milagro Ying on 07-11-2024 AST [Catalytic activity/Vol] 23 U/L <32 [facility] Lipaseon 07-11-2024 Lipase [Catalytic activity/Vol] 56 U/L Normal 13-75 [facility] Comment on above: Result Comment: Efrem caldwell note:LIPASE revised reference range effective 22.New Lipase methodology. Expected to produce lower valuesthan the previous assay method.NEW Reference Range: 13 - 75 U/L Performed By: #### L 501.2450, L500.4050, L100.0100 ####[facility] [address], [address] Lipase measurementOrdered By : Milagro Ying on 07-11-2024 Lipase [Catalytic activity/Vol] 56 U/L 13-75 [facility] Comment on above: Please note:LIPASE r evised reference range effective 22. New Lipase methodology. Expected to produce lower values than the previous assay method. NEW Reference Range: 13 - 75 U/L Lymphocytes Auto (Unsp spec) [#/Vol]Ordered By: Milagro Ying on 07-11-2024 Lymphocytes (Bld) [#/Vol] 1.77 10*3/uL 0.83-4.51 [facility] Lymphocytes/100 WBC Auto (Un sp spec)Ordered By: Milagro Ying on 07-11-2024 Lymphocytes/100 WBC (Bld) 15.4 % Low 19-41 [facility] MCV (mean corpuscular volume ) determinationOrdered By: Milagro Ying on 07-11-2024 MCV (RBC) [Entitic vol] 99.4 fL High 81-99 [facility] Mean corpuscular hemoglobin (MCH) determinationOrdered By: Milagro Ying on 07-11-2024 MCH (RBC) [Entitic mass] 35.1 pg High 27.0-32.0 [facility] Mean corpuscular hemoglobin concentration (MCHC) determinationOrdered By: Milagro Ying on 07-11-2024 MCHC (RBC) [Mass/Vol] 35.4 g/dL 32-36 [facility] Mean platelet volume determi nationOrdered By: Milagro Ying on 07-11-2024 Platelet mean volume (Bld) [Entitic vol] 9.1 fL 6.2-12.0 [facility] Microscopic analysis of urin e for red blood cells (RBC)Ordered By: Milagro Ying on 07-11-2024 Microscopic analysis of urine for red blood cells (RBC) 0-5 SEEN /hpf 0-5 [facility] Monocyte percentageOrdered B y: Milagro Ying on 07-11-2024 Monocytes/100 WBC (Bld) 6.6 % 0-10 [facility] Mucus LM Ql (Urine sed)Order ed By: Milagro Ying on 07-11-2024 Mucus Ql (Urine sed) 0 SEEN /hpf [facility] Neutrophil percentageOrdered By: Milagro Ying on 07-11-2024 Neutrophils/100 WBC (Bld) 76.8 % High 47-70 [facility] Nitrite Test strip Ql (U)Ord ered By: Milagro Ying on 07-11-2024 Nitrite Ql (U) Negative Negative [facility] Nucleated red blood cell per centageOrdered By: Milagro Ying on 07-11-2024 Nucleated RBC/100 WBC (Bld) [Ratio] 0 % 0-5 [facility] Platelet countOrdered By: Ronda Ying on 07-11-2024 Platelets (Bld) [#/Vol] 309 10*3/uL 150-450 [facility] Potassium (Unsp spec) [Mass/ Vol]Ordered By: Milagro Ying on 07-11-2024 Potassium [Moles/Vol] 3.4 mmol/L 3.3-5.1 [facility] Potassium measurement (mass/ volume)Ordered By: Milagro Ying on 07-11-2024 Potassium (Unsp spec) [Mass/Vol] 3.4 mmol/L 3.3-5.1 [facility] Protein Test strip Ql (U)Ord ered By: Milagro Ying on 07-11-2024 Protein Ql (U) TNP [facility] Comment on above: Test not performedSE E URINE CHEMISTRY PROTIEN ORDER FOR THIS RESULT. Protein, Urine (Random)on Protein (U) [Mass/Vol] 13.1 mg/dL High 0.0-12.0 [facility] Comment on above: Performed By: #### L 501.1930 ####[facility] [address] [place], [address] RBC Auto (Bld) [#/Vol]Ordere d By: Milagro Ying on 07-11-2024 RBC (Bld) [#/Vol] 3.16 10*6/uL Low 4.2-5.4 [facility] Serum creatinine measurement (mass/volume)Ordered By: Milagro Ying on 07-11-2024 Creatinine [Mass/Vol] 0.72 mg/dL 0.70-1.20 [facility] Serum globulin measurementOr dered By: Milagro Ying on 07-11-2024 Globulin (S) [Mass/Vol] 2.9 g/dL 2.2-4.2 [facility] Serum glucose measurement (m ass/volume)Ordered By: Milagro Ying on 07-11-2024 Glucose [Mass/Vol] 116 mg/dL High 70-99 [facility] Serum or plasma alanine ramirez otransferase (ALT) measurementOrdered By: Milagro Ying on 07-11-2024 ALT [Catalytic activity/Vol] 10 U/L <35 [facility] Serum or plasma albumin renetta urement (mass/volume)Ordered By: Milagro Yign on 07-11-2024 Albumin [Mass/Vol] 4.6 g/dL 3.4-4.8 [facility] Serum or plasma albumin/glob ulin mass ratioOrdered By: Milagro Chapinromeo on 07-11-2024 Albumin/Globulin [Mass ratio] 1.6 {ratio} 0.9-2.4 [facility] Serum or plasma alkaline marquez sphatase measurementOrdered By: Milagro Chapinromeo on 07-11-2024 ALP [Catalytic activity/Vol] 56 U/L 35-104 [facility] Serum or plasma calcium renetta urement (mass/volume)Ordered By: Milagro Chapinromeo on 07-11-2024 Calcium [Mass/Vol] 9.5 mg/dL 7.6-11.0 [facility] Serum or plasma urea nitroge n measurement (mass/volume)Ordered By: Milagro Stepan on 07-11-2024 Urea nitrogen [Mass/Vol] 19 mg/dL 4-19 [facility] Sodium levelOrdered By: Ashleysandeep roger Stepan on 07-11-2024 Sodium [Moles/Vol] 137 mmol/L 133-145 [facility] Squamous epithelial cells de tection in urine sediment by light microscopyOrdered By: Milagro Chapinromeo on 07-11-2024 Epithelial cells.squamous LM Ql (Urine sed) 0 SEEN /hpf 5-10 [facility] Total proteinOrdered By: Ashley Chapinromeo on 07-11-2024 Protein [Mass/Vol] 7.5 g/dL 5.9-8.4 [facility] Urinalysis, Completeon 07-11 CAST,FINE GRAN 0-5 SEEN Normal 0-5 [facility] Comment on above: Order Comment: CLEAN CATCH Performed By: #### L 400.0001 ####[facility] [address] [place], [place], [id number] CAST,HYALINE 0-5 SEEN Normal 0-5 [facility] Comment on above: Order Comment: CLEAN CATCH Performed By: #### L 400.0001 ####[facility] [address] [place], [place], [id number] RBC 0-5 SEEN Normal 0-5 [facility] Comment on above: Order Comment: CLEAN CATCH Performed By: #### L 400.0001 ####[facility] [address] [place], [address] WBC 0-5 SEEN Normal 0-5 [facility] Comment on above: Order Comment: CLEAN CATCH Performed By: #### L 400.0001 ####[facility] [address] [place], [address] BACTERIA 0 SEEN Normal None Seen [facility] Comment on above: Order Comment: CLEAN CATCH Performed By: #### L 400.0001 ####[facility] [address] [place], [address] EPI,SQUAMOUS 0 SEEN Normal 5-10 [facility] Comment on above: Order Comment: CLEAN CATCH Performed By: #### L 400.0001 ####[facility] [address] [place], [address] Mucus Ql (Urine sed) 0 SEEN Normal [facility] Comment on above: Order Comment: CLEAN CATCH Performed By: #### L 400.0001 ####[facility] [address] [place], [address] Urine clarityOrdered By: Ashley Ying on 07-11-2024 Clarity (U) Clear Clear [facility] Urine color determinationOrd ered By: Milagro Ying on 07-11-2024 Color (U) Yellow Yellow [facility] Urine glucose detectionOrder ed By: Milagro Ying on 07-11-2024 Glucose Ql (U) Normal mg/dl Normal [facility] Urine leukocyte esterase det ection by dipstickOrdered By: Milagro Ying on 07-11-2024 Leukocyte esterase Test strip Ql (U) Negative Negative [facility] Urine pHOrdered By: Milagro Brower gur on 07-11-2024 pH (U) 6.5 [pH] 5.0 - 8.0 [facility] Urine protein measurement (m ass/volume)Ordered By: Milagro Ying on 07-11-2024 Protein (U) [Mass/Vol] 13.1 mg/dL High 0.0-12.0 [facility] Urine sediment bacteria coun t by microscopy (number/high power field)Ordered By: Ashleyus Stepan on 07-11-2024 Bacteria LM.HPF (Urine sed) [#/Area] 0 /[HPF] None Seen [facility] Urine sediment fine granular cast count by microscopy (number/low power field)Ordered By: Remus Ungromeo on 07-11-2024 Fine Granular Casts LM.LPF (Urine sed) [#/Area] 0-5 SEEN /lpf 0-5 [facility] Urine specific gravity measu rementOrdered By: Ashleyus Stepan on 07-11-2024 Specific gravity (U) [Rel density] 1.010 1.002-1.03 0 [facility] Urine urobilinogen measureme ntOrdered By: Remus Ungromeo on 07-11-2024 Urobilinogen Ql (U) Normal mg/dl Normal [facility] White blood cell (WBC) count Ordered By: Ashleyus Stepan on 07-11-2024 WBC (Bld) [#/Vol] 11.5 10*3/uL High 4.4-11.0 [facility] White blood cell countOrdere d By: Remus Ungromeo on 07-11-2024 White blood cell count 0-5 SEEN /hpf 0-5 [facility] CNPNon 07-04-2024 CNPN Normal [facility] CNPNon 07-02-2024 CNPN Normal [facility] CNCNPATEDon 06-25-2024 CNCNPATED Normal [facility] CBC W Auto Differential pane l (Bld)on 06-17-2024 Basophils (Bld) [#/Vol] 0.05 10*3/uL Normal <0.11 [facility] Comment on above: Order Comment: Speci men Type: BLOOD SPECIMENOrdering Facility: [facility] Address: [address] [place] [address] Performed By: #### 5 7021-8 ####[facility]ITALFUAD [id number] [place] [id number] [place] Basophils/100 WBC (Bld) 0.8 % Normal [facility] Comment on above: Order Comment: Speci men Type: BLOOD SPECIMENOrdering Facility: [facility] Address: [address] [place] [address] Performed By: #### 5 7021-8 ####[facility]ITALNCLIA [id number] [place] [address] [place] Differential cell count method Nom (Bld) Auto Normal [facility] Comment on above: Order Comment: Speci men Type: BLOOD SPECIMENOrdering Facility: [facility] Address: [address] [place] [address] Performed By: #### 5 7021-8 ####[facility]ITALNCLIA [id number] [place] [address] [place] Eosinophils (Bld) [#/Vol] 0.23 10*3/uL Normal <0.46 [facility] Comment on above: Order Comment: Speci men Type: BLOOD SPECIMENOrdering Facility: [facility] Address: [address] [place] [address] Performed By: #### 5 7021-8 ####[facility]ITALNCLIA [id number] [place] [address] [place] Eosinophils/100 WBC (Bld) 3.6 % Normal [facility] Comment on above: Order Comment: Speci men Type: BLOOD SPECIMENOrdering Facility: [facility] Address: [address] [place] [address] Performed By: #### 5 7021-8 ####[facility]ITALNCLIA [id number] [place] [address] [place] Erythrocyte distribution width (RBC) [Ratio] 20.2 % High 11.5-15.0 [facility] Comment on above: Order Comment: Speci men Type: BLOOD SPECIMENOrdering Facility: [facility] Address: [address] [place] [address] Performed By: #### 5 7021-8 ####[facility]ITALNCLI [id number] [place] [address] [place] Hematocrit (Bld) [Volume fraction] 33.8 % Low 36.0-46.0 [facility] Comment on above: Order Comment: Speci men Type: BLOOD SPECIMENOrdering Facility: [facility] Address: [address] [place] [address] Performed By: #### 5 7021-8 ####[facility]OSPITALGUME [id number] [place] [address] [place] Hemoglobin (Bld) [Mass/Vol] 11.2 g/dL Low 11.5-15.5 [facility] Comment on above: Order Comment: Speci men Type: BLOOD SPECIMENOrdering Facility: [facility] Address: [address] [place] [address] Performed By: #### 5 7021-8 ####[facility]OSPITALKALIEMOUNTAINSTAR HEALTHCARE [id number] [place] [address] [place] Immature granulocytes (Bld) [#/Vol] 10*3/uL Normal <0.10 [facility] Comment on above: Order Comment: Speci men Type: BLOOD SPECIMENOrdering Facility: [facility] Address: [address] [place] [address] Performed By: #### 5 7021-8 ####[facility] HOSPITALGUMEA [id number] [place] [address] [place] Immature granulocytes/100 WBC (Bld) 0.3 % Normal [facility] Comment on above: Order Comment: Speci men Type: BLOOD SPECIMENOrdering Facility: [facility] Address: [address] [place] [address] Performed By: #### 5 7021-8 ####[facility]ITALNCLIA [id number] [place] [address] [place] Lymphocytes (Bld) [#/Vol] 1.80 10*3/uL Normal 1.00-4.00 [facility] Comment on above: Order Comment: Speci men Type: BLOOD SPECIMENOrdering Facility: [facility] Address: [address] [place] [address] Performed By: #### 5 7021-8 ####[facility] HOSPITALGUME [id number] [place] [address] [place] Lymphocytes/100 WBC (Bld) 28.1 % Normal [facility] Comment on above: Order Comment: Speci men Type: BLOOD SPECIMENOrdering Facility: [facility] Address: [address] [place] [address] Performed By: #### 5 7021-8 ####[facility] HOSPITALNCMOUNTAINSTAR HEALTHCARE [id number] [place] [address] [place] MCH (RBC) [Entitic mass] 33.3 pg Normal 26.0-34.0 [facility] Comment on above: Order Comment: Speci men Type: BLOOD SPECIMENOrdering Facility: [facility] Address: [address] [place] [address] Performed By: #### 5 7021-8 ####[facility] [id number] [place] [address] [place] MCHC (RBC) [Mass/Vol] 33.1 g/dL Normal 30.5-36.0 [facility] Comment on above: Order Comment: Speci men Type: BLOOD SPECIMENOrdering Facility: [facility] Address: [address] [place] [address] Performed By: #### 5 7021-8 ####[facility] HOSPITALNCA [id number] [place] [address] [place] MCV (RBC) [Entitic vol] 100.6 fL High 80.0-100.0 [facility] Comment on above: Order Comment: Speci men Type: BLOOD SPECIMENOrdering Facility: [facility] Address: [address] [place] [address] Performed By: #### 5 7021-8 ####[facility] MILLTOWNCLIA [id number] [place] [address] [place] Monocytes (Bld) [#/Vol] 0.52 10*3/uL Normal <0.87 [facility] Comment on above: Order Comment: Speci men Type: BLOOD SPECIMENOrdering Facility: [facility] Address: [address] [place] [address] Performed By: #### 5 7021-8 ####[facility] MILLWNCLIA [id number] [place] [address] [place] Monocytes/100 WBC (Bld) 8.1 % Normal [facility] Comment on above: Order Comment: Speci men Type: BLOOD SPECIMENOrdering Facility: [facility] Address: [address] [place] [address] Performed By: #### 5 7021-8 ####[facility] [id number] [place] [address] [place] Neutrophils (Bld) [#/Vol] 3.79 10*3/uL Normal 1.45-7.50 [facility] Comment on above: Order Comment: Speci men Type: BLOOD SPECIMENOrdering Facility: [facility] Address: [address] [place] [address] Performed By: #### 5 7021-8 ####[facility] MILLTOWNCLIA [id number] [place] [address] [place] Neutrophils/100 WBC (Bld) 59.1 % Normal [facility] Comment on above: Order Comment: Speci men Type: BLOOD SPECIMENOrdering Facility: [facility] Address: [address] [place] [address] Performed By: #### 5 7021-8 ####[facility]ITALNCLIA [id number] [place] [address] [place] Nucleated RBC (Bld) [#/Vol] 10*3/uL Normal <0.01 [facility] Comment on above: Order Comment: Speci men Type: BLOOD SPECIMENOrdering Facility: [facility] Address: [address] [place] [address] Performed By: #### 5 7021-8 ####[facility] HOSPITALKALIEKELSIE [id number] [place] [address] [place] Nucleated RBC/100 WBC (Bld) [Ratio] 0.0 /100 WBC Normal [facility] Comment on above: Order Comment: Speci men Type: BLOOD SPECIMENOrdering Facility: [facility] Address: [address] [place] [address] Performed By: #### 5 7021-8 ####[facility] HOSPITALNCMOUNTAINSTAR HEALTHCARE [id number] [place] [address] [place] Platelet mean volume (Bld) [Entitic vol] 8.2 fL Low 9.0-12.7 [facility] Comment on above: Order Comment: Speci men Type: BLOOD SPECIMENOrdering Facility: [facility] Address: [address] [place] [address] Performed By: #### 5 7021-8 ####[facility] HOSPITALKALIEA [id number] [place] [address] [place] Platelets (Bld) [#/Vol] 230 10*3/uL Normal 150-400 [facility] Comment on above: Order Comment: Speci men Type: BLOOD SPECIMENOrdering Facility: [facility] Address: [address] [place] [address] Performed By: #### 5 7021-8 ####[facility] HOSPITALNCLIA [id number] [place] [address] [place] RBC (Bld) [#/Vol] 3.36 10*6/uL Low 3.90-5.20 [facility] Comment on above: Order Comment: Speci men Type: BLOOD SPECIMENOrdering Facility: [facility] Address: [address] [place] [address] Performed By: #### 5 7021-8 ####[facility] ERWNCLIA [id number] [place] [address] [place] WBC (Bld) [#/Vol] 6.41 10*3/uL Normal 3.70-11.00 [facility] Comment on above: Order Comment: Speci men Type: BLOOD SPECIMENOrdering Facility: [facility] Address: [address] [place] [address] Performed By: #### 5 7021-8 ####[facility] HOSPITALNCA [id number] [place] [address] [place] CNOVSPon 06-17-2024 CNOVSP Normal [facility] Comprehensive metabolic 2000 panelon 06-17-2024 Albumin [Mass/Vol] 4.1 g/dL Normal 3.9-4.9 [facility] Comment on above: Order Comment: Speci men Type: BLOOD SPECIMENOrdering Facility: [facility] Address: [address] [place] [address] Performed By: #### 2 4323-8 ####[facility] HOSPITALNCLIA [id number] [place] [address] [place] ALP [Catalytic activity/Vol] 58 U/L Normal 34-123 [facility] Comment on above: Order Comment: Speci men Type: BLOOD SPECIMENOrdering Facility: [facility] Address: [address] [place] [address] Performed By: #### 2 4323-8 ####[facility] ERWNCLIA [id number] [place] [address] [place] ALT [Catalytic activity/Vol] U/L Low 7-38 [facility] Comment on above: Order Comment: Speci men Type: BLOOD SPECIMENOrdering Facility: [facility] Address: [address] [place] [address] Performed By: #### 2 4323-8 ####[facility] CHRISTIAN HUNTLIA [id number] [place] [address] [place] Anion gap [Moles/Vol] 11 mmol/L Normal 8-15 [facility] Comment on above: Order Comment: Speci men Type: BLOOD SPECIMENOrdering Facility: [facility] Address: [address] [place] [address] Performed By: #### 2 4323-8 ####[facility] LALYWNCLIA [id number] [place] [address] [place] AST [Catalytic activity/Vol] 13 U/L Normal 13-35 [facility] Comment on above: Order Comment: Speci men Type: BLOOD SPECIMENOrdering Facility: [facility] Address: [address] [place] [address] Performed By: #### 2 4323-8 ####[facility] BISHNUWNCLIA [id number] [place] [address] [place] Bilirubin [Mass/Vol] 0.3 mg/dL Normal 0.2-1.3 [facility] Comment on above: Order Comment: Speci men Type: BLOOD SPECIMENOrdering Facility: [facility] Address: [address] [place] [address] Performed By: #### 2 4323-8 ####[facility] MILLTOWNCLIA [id number] [place] [address] [place] Calcium [Mass/Vol] 9.3 mg/dL Normal 8.5-10.2 [facility] Comment on above: Order Comment: Speci men Type: BLOOD SPECIMENOrdering Facility: [facility] Address: [address] [place] [address] Performed By: #### 2 4323-8 ####[facility] MILLWNCLIA [id number] [place] [address] [place] Chloride [Moles/Vol] 110 mmol/L High 98-107 [facility] Comment on above: Order Comment: Speci men Type: BLOOD SPECIMENOrdering Facility: [facility] Address: [address] [place] [address] Performed By: #### 2 4323-8 ####[facility] HOSPITALLI [id number] [place] [address] [place] CO2 [Moles/Vol] 19 mmol/L Low 22-30 [facility] Comment on above: Order Comment: Speci men Type: BLOOD SPECIMENOrdering Facility: [facility] Address: [address] [place] [address] Performed By: #### 2 4323-8 ####[facility] [id number] [place] [address] [place] Creatinine [Mass/Vol] 0.63 mg/dL Normal 0.58-0.96 [facility] Comment on above: Order Comment: Speci men Type: BLOOD SPECIMENOrdering Facility: [facility] Address: [address] [place] [address] Performed By: #### 2 4323-8 ####[facility] [id number] [address] [facility] Creatinine and Glomerular filtration rate.predicted panel (S/P/Bld) 99 mL/min/1.73m??? Normal >=60 [facility] Comment on above: Order Comment: Speci men Type: BLOOD SPECIMENOrdering Facility: [facility] Address: [address] [place] [address] Result Comment: Sana mated Glomerular Filtration Rate [...] actual GFR. Performed By: #### 2 4323-8 ####[facility] CHRISTIAN LALYWNCLIA [id number] [place] [address] [place] Glucose [Mass/Vol] 115 mg/dL High 74-99 [facility] Comment on above: Order Comment: Umesh baugh Type: BLOOD SPECIMENOrdering Facility: [facility] Address: [address] [place] [address] Result Comment: The [place] [employer] (ADA) provides guidance for cutoff [...] Standards of Medical Care in Diabetes 2016, [place] [employer]. Diabetes Care. 2016.39(Suppl 1). Performed By: #### 2 4323-8 ####[facility] BISHNUWINSTON SALEMNCLIA [id number] [place] [address] [place] Potassium [Moles/Vol] 3.9 mmol/L Normal 3.7-5.1 [facility] Comment on above: Order Comment: Umesh baugh Type: BLOOD SPECIMENOrdering Facility: [facility] Address: [address] [place] [address] Performed By: #### 2 4323-8 ####[facility] BISHNUWNCLIA [id number] [place] [address] [place] Protein [Mass/Vol] 6.8 g/dL Normal 6.3-8.0 [facility] Comment on above: Order Comment: Speci men Type: BLOOD SPECIMENOrdering Facility: [facility] Address: [address] [place] [address] Performed By: #### 2 4323-8 ####[facility] PARISH [id number] [place] [address] [place] Sodium [Moles/Vol] 140 mmol/L Normal 136-144 [facility] Comment on above: Order Comment: Speci men Type: BLOOD SPECIMENOrdering Facility: [facility] Address: [address] [place] [address] Performed By: #### 2 4323-8 ####[facility] ERCucaNCLIA [id number] [place] [address] [place] Urea nitrogen [Mass/Vol] 14 mg/dL Normal 7-21 [facility] Comment on above: Order Comment: Speci men Type: BLOOD SPECIMENOrdering Facility: [facility] Address: [address] [place] [address] Performed By: #### 2 4323-8 ####[facility] H[facility]PITALNCLIA [id number] [place] [address] [place] CNPNon 05-29-2024 CNPN Normal [facility] CBC W Auto Differential pane l (Bld)on 05-27-2024 Basophils (Bld) [#/Vol] 0.06 10*3/uL Normal <0.11 [facility] Comment on above: Order Comment: Speci men Type: BLOOD SPECIMENOrdering Facility: [facility] Address: [address] [place], [place] [id number] Performed By: #### 5 7021-8 ####[facility] HOSPITALNCLIA [id number] [place] [address] [place] Basophils/100 WBC (Bld) 0.8 % Normal [facility] Comment on above: Order Comment: Speci men Type: BLOOD SPECIMENOrdering Facility: [facility] Address: [address] [place] [address] Performed By: #### 5 7021-8 ####[facility] H[facility]PITALNCLIA [id number] [place] [address] [place] Differential cell count method Nom (Bld) Auto Normal [facility] Comment on above: Order Comment: Speci men Type: BLOOD SPECIMENOrdering Facility: [facility] Address: [address] [place] [address] Performed By: #### 5 7021-8 ####[facility] HOSPITALNCLI [id number] [place] [address] [place] Eosinophils (Bld) [#/Vol] 0.15 10*3/uL Normal <0.46 [facility] Comment on above: Order Comment: Speci men Type: BLOOD SPECIMENOrdering Facility: [facility] Address: [address] [place] [address] Performed By: #### 5 7021-8 ####[facility] H[facility]PITALNCLIA [id number] [place] [address] [place] Eosinophils/100 WBC (Bld) 1.9 % Normal [facility] Comment on above: Order Comment: Speci men Type: BLOOD SPECIMENOrdering Facility: [facility] Address: [address] [place] [address] Performed By: #### 5 7021-8 ####[facility] HOSPITALNCLIA [id number] [place] [address] [place] Erythrocyte distribution width (RBC) [Ratio] 20.0 % High 11.5-15.0 [facility] Comment on above: Order Comment: Speci men Type: BLOOD SPECIMENOrdering Facility: [facility] Address: [address] [place] [address] Performed By: #### 5 7021-8 ####[facility] HOSPITALNCLI [id number] [place] [address] [place] Hematocrit (Bld) [Volume fraction] 37.3 % Normal 36.0-46.0 [facility] Comment on above: Order Comment: Speci men Type: BLOOD SPECIMENOrdering Facility: [facility] Address: [address] [place] [address] Performed By: #### 5 7021-8 ####[facility] BISHNUWINSTON SALEMFUAD [id number] [place] [address] [place] Hemoglobin (Bld) [Mass/Vol] 13.2 g/dL Normal 11.5-15.5 [facility] Comment on above: Order Comment: Speci men Type: BLOOD SPECIMENOrdering Facility: [facility] Address: [address] [place] [address] Performed By: #### 5 7021-8 ####[facility] HOSPITALFUAD [id number] [place] [address] [place] Immature granulocytes (Bld) [#/Vol] 0.06 10*3/uL Normal <0.10 [facility] Comment on above: Order Comment: Speci men Type: BLOOD SPECIMENOrdering Facility: [facility] Address: [address] [place] [address] Performed By: #### 5 7021-8 ####[facility] HOSPITALGUMELetha [id number] [place] [address] [place] Immature granulocytes/100 WBC (Bld) 0.8 % Normal [facility] Comment on above: Order Comment: Speci men Type: BLOOD SPECIMENOrdering Facility: [facility] Address: [address] [place] [address] Performed By: #### 5 7021-8 ####[facility] HOSPITALNCLIA [id number] [place] [address] [place] Lymphocytes (Bld) [#/Vol] 2.61 10*3/uL Normal 1.00-4.00 [facility] Comment on above: Order Comment: Speci men Type: BLOOD SPECIMENOrdering Facility: [facility] Address: [address] [place] [address] Performed By: #### 5 7021-8 ####[facility] [id number] [place] [address] [place] Lymphocytes/100 WBC (Bld) 33.5 % Normal [facility] Comment on above: Order Comment: Speci men Type: BLOOD SPECIMENOrdering Facility: [facility] Address: [address] [place] [address] Performed By: #### 5 7021-8 ####[facility] HOSPITALNCMOUNTAINSTAR HEALTHCARE [id number] [place] [address] [place] MCH (RBC) [Entitic mass] 32.8 pg Normal 26.0-34.0 [facility] Comment on above: Order Comment: Speci men Type: BLOOD SPECIMENOrdering Facility: [facility] Address: [address] [place] [address] Performed By: #### 5 7021-8 ####[facility] [id number] [place] [address] [place] MCHC (RBC) [Mass/Vol] 35.4 g/dL Normal 30.5-36.0 [facility] Comment on above: Order Comment: Speci men Type: BLOOD SPECIMENOrdering Facility: [facility] Address: [address] [place] [address] Performed By: #### 5 7021-8 ####[facility] HOSPITALNCMOUNTAINSTAR HEALTHCARE [id number] [place] [address] [place] MCV (RBC) [Entitic vol] 92.8 fL Normal 80.0-100.0 [facility] Comment on above: Order Comment: Speci men Type: BLOOD SPECIMENOrdering Facility: [facility] Address: [address] [place] [address] Performed By: #### 5 7021-8 ####[facility] MILLTOWNCLIA [id number] [place] [address] [place] Monocytes (Bld) [#/Vol] 0.88 10*3/uL High <0.87 [facility] Comment on above: Order Comment: Speci men Type: BLOOD SPECIMENOrdering Facility: [facility] Address: [address] [place] [address] Performed By: #### 5 7021-8 ####[facility] MILLTOWNCLIA [id number] [place] [address] [place] Monocytes/100 WBC (Bld) 11.3 % Normal [facility] Comment on above: Order Comment: Speci men Type: BLOOD SPECIMENOrdering Facility: [facility] Address: [address] [place] [address] Performed By: #### 5 7021-8 ####[facility] H[facility]PITALNCLIA [id number] [place] [address] [place] Neutrophils (Bld) [#/Vol] 4.04 10*3/uL Normal 1.45-7.50 [facility] Comment on above: Order Comment: Speci men Type: BLOOD SPECIMENOrdering Facility: [facility] Address: [address] [place] [address] Performed By: #### 5 7021-8 ####[facility] MILLTOWNCLIA [id number] [place] [address] [place] Neutrophils/100 WBC (Bld) 51.7 % Normal [facility] Comment on above: Order Comment: Speci men Type: BLOOD SPECIMENOrdering Facility: [facility] Address: [address] [place] [address] Performed By: #### 5 7021-8 ####[facility] MILLWNCLIA [id number] [place] [address] [place] Nucleated RBC (Bld) [#/Vol] 10*3/uL Normal <0.01 [facility] Comment on above: Order Comment: Speci men Type: BLOOD SPECIMENOrdering Facility: [facility] Address: [address] [place] [address] Performed By: #### 5 7021-8 ####[facility] ERCucaKALIEKELSIE [id number] [place] [address] [place] Nucleated RBC/100 WBC (Bld) [Ratio] 0.0 /100 WBC Normal [facility] Comment on above: Order Comment: Speci men Type: BLOOD SPECIMENOrdering Facility: [facility] Address: [address] [place] [address] Performed By: #### 5 7021-8 ####[facility] HOSPITALKALIELetha [id number] [place] [address] [place] Platelet mean volume (Bld) [Entitic vol] 8.5 fL Low 9.0-12.7 [facility] Comment on above: Order Comment: Speci men Type: BLOOD SPECIMENOrdering Facility: [facility] Address: [address] [place] [address] Performed By: #### 5 7021-8 ####[facility] HOSPITALGUMEA [id number] [place] [address] [place] Platelets (Bld) [#/Vol] 278 10*3/uL Normal 150-400 [facility] Comment on above: Order Comment: Speci men Type: BLOOD SPECIMENOrdering Facility: [facility] Address: [address] [place] [address] Performed By: #### 5 7021-8 ####[facility] H[facility]PITALNCLIA [id number] [place] [address] [place] RBC (Bld) [#/Vol] 4.02 10*6/uL Normal 3.90-5.20 [facility] Comment on above: Order Comment: Speci men Type: BLOOD SPECIMENOrdering Facility: [facility] Address: [address] [place] [address] Performed By: #### 5 7021-8 ####[facility] ERWNCLIA [id number] [place] [address] [place] WBC (Bld) [#/Vol] 7.80 10*3/uL Normal 3.70-11.00 [facility] Comment on above: Order Comment: Speci men Type: BLOOD SPECIMENOrdering Facility: [facility] Address: [address] [place] [address] Performed By: #### 5 7021-8 ####[facility] HOSPITALNCA [id number] [place] [address] [place] Comprehensive metabolic 2000 panelon 05-27-2024 Albumin [Mass/Vol] 4.4 g/dL Normal 3.9-4.9 [facility] Comment on above: Order Comment: Speci men Type: BLOOD SPECIMENOrdering Facility: [facility] Address: [address] [place] [address] Performed By: #### 2 4323-8 ####[facility] H[facility]PITALNCLIA [id number] [place] [address] [place] ALP [Catalytic activity/Vol] 54 U/L Normal 34-123 [facility] Comment on above: Order Comment: Speci men Type: BLOOD SPECIMENOrdering Facility: [facility] Address: [address] [place] [address] Performed By: #### 2 4323-8 ####[facility] HOSPITALNCLIA [id number] [place] [address] [place] ALT [Catalytic activity/Vol] 9 U/L Normal 7-38 [facility] Comment on above: Order Comment: Speci men Type: BLOOD SPECIMENOrdering Facility: [facility] Address: [address] [place] [address] Performed By: #### 2 4323-8 ####[facility] MILLTOWNCLIA [id number] [place] [address] [place] Anion gap [Moles/Vol] 14 mmol/L Normal 8-15 [facility] Comment on above: Order Comment: Speci men Type: BLOOD SPECIMENOrdering Facility: [facility] Address: [address] [place] [address] Performed By: #### 2 4323-8 ####[facility] MILLTOWNCLIA [id number] [place] [address] [place] AST [Catalytic activity/Vol] 17 U/L Normal 13-35 [facility] Comment on above: Order Comment: Speci men Type: BLOOD SPECIMENOrdering Facility: [facility] Address: [address] [place] [address] Performed By: #### 2 4323-8 ####[facility] MILLTOWNCLIA [id number] [place] [address] [place] Bilirubin [Mass/Vol] 0.5 mg/dL Normal 0.2-1.3 [facility] Comment on above: Order Comment: Speci men Type: BLOOD SPECIMENOrdering Facility: [facility] Address: [address] [place] [address] Performed By: #### 2 4323-8 ####[facility] MILLTOWNCLIA [id number] [place] [address] [place] Calcium [Mass/Vol] 9.7 mg/dL Normal 8.5-10.2 [facility] Comment on above: Order Comment: Speci men Type: BLOOD SPECIMENOrdering Facility: [facility] Address: [address] [place] [address] Performed By: #### 2 4323-8 ####[facility] [id number] [place] [address] [place] Chloride [Moles/Vol] 96 mmol/L Low 98-107 [facility] Comment on above: Order Comment: Speci men Type: BLOOD SPECIMENOrdering Facility: [facility] Address: [address] [place] [address] Performed By: #### 2 4323-8 ####[facility] [id number] [place] [address] [place] CO2 [Moles/Vol] 26 mmol/L Normal 22-30 [facility] Comment on above: Order Comment: Speci men Type: BLOOD SPECIMENOrdering Facility: [facility] Address: [address] [place] [address] Performed By: #### 2 4323-8 ####[facility] [id number] [place] [address] [place] Creatinine [Mass/Vol] 0.66 mg/dL Normal 0.58-0.96 [facility] Comment on above: Order Comment: Speci men Type: BLOOD SPECIMENOrdering Facility: [facility] Address: [address] [place] [address] Performed By: #### 2 4323-8 ####[facility] [place] [id number] [facility] Creatinine and Glomerular filtration rate.predicted panel (S/P/Bld) 97 mL/min/1.73m??? Normal >=60 [facility] Comment on above: Order Comment: Speci men Type: BLOOD SPECIMENOrdering Facility: [facility] Address: [address] [place] [address] Result Comment: Sana mated Glomerular Filtration Rate [...] actual GFR. Performed By: #### 2 4323-8 ####[facility]ITALNCLI [id number] [place] [address] [place] Glucose [Mass/Vol] 120 mg/dL High 74-99 [facility] Comment on above: Order Comment: Umesh baugh Type: BLOOD SPECIMENOrdering Facility: [facility] Address: [address] [place] [address] Result Comment: The [place] Diabetes Association (ADA) provides guidance for cutoff [...] Standards of Medical Care in Diabetes 2016, [place] [employer]. Diabetes Care. 2016.39(Suppl 1). Performed By: #### 2 4323-8 ####[facility]ITALNCLIA [id number] [place] [address] [place] Potassium [Moles/Vol] 3.3 mmol/L Low 3.7-5.1 [facility] Comment on above: Order Comment: Umesh baugh Type: BLOOD SPECIMENOrdering Facility: [facility] Address: [address] [id number] Performed By: #### 2 4323-8 ####[facility] [place] [id number] [place] [address] [place] Protein [Mass/Vol] 7.4 g/dL Normal 6.3-8.0 [facility] Comment on above: Order Comment: Umesh baugh Type: BLOOD SPECIMENOrdering Facility: [facility] Address: [address] [place] [address] Performed By: #### 2 4323-8 ####[facility] MILLJUSTINWNCLIA [id number] [place] [address] [place] Sodium [Moles/Vol] 136 mmol/L Normal 136-144 [facility] Comment on above: Order Comment: Speci men Type: BLOOD SPECIMENOrdering Facility: [facility] Address: [address] [place] [address] Performed By: #### 2 4323-8 ####[facility] ERCucaNCLIA [id number] [place] [address] [place] Urea nitrogen [Mass/Vol] 16 mg/dL Normal 7-21 [facility] Comment on above: Order Comment: Speci men Type: BLOOD SPECIMENOrdering Facility: [facility] Address: [address] [place] [address] Performed By: #### 2 4323-8 ####[facility] MILLWINSTON SALEMNCLIA [id number] [place] [address] [place] CNPNon 05-24-2024 CNPN Normal [facility] CNOVon 05-13-2024 CNOV Normal [facility] CNPTOUTREACHon 05-07-2024 CNPTOUTREACH Normal [facility] CBC W Auto Differential pane l (Bld)on 05-06-2024 Basophils (Bld) [#/Vol] 0.07 10*3/uL Normal <0.11 [facility] Comment on above: Order Comment: Speci men Type: BLOOD SPECIMENOrdering Facility: [facility] Address: [address] [place] [address] Performed By: #### 5 7021-8 ####[facility] MILLTOWNCLIA [id number] [place] [address] [place] Basophils/100 WBC (Bld) 1.1 % Normal [facility] Comment on above: Order Comment: Speci men Type: BLOOD SPECIMENOrdering Facility: [facility] Address: [address] [place] [address] Performed By: #### 5 7021-8 ####[facility] BISHNUCRUZITO [id number] [place] [address] [place] Differential cell count method Nom (Bld) Auto Normal [facility] Comment on above: Order Comment: Speci men Type: BLOOD SPECIMENOrdering Facility: [facility] Address: [address] [place] [address] Performed By: #### 5 7021-8 ####[facility]PITALNCMOUNTAINSTAR [facility]ALTHCARE [id number] [place] [address] [place] Eosinophils (Bld) [#/Vol] 0.23 10*3/uL Normal <0.46 [facility] Comment on above: Order Comment: Speci men Type: BLOOD SPECIMENOrdering Facility: [facility] Address: [address] [place] [address] Performed By: #### 5 7021-8 ####[facility] [place] [id number] [place] [address] [place] Eosinophils/100 WBC (Bld) 3.6 % Normal [facility] Comment on above: Order Comment: Speci men Type: BLOOD SPECIMENOrdering Facility: [facility] Address: [address] [place] [address] Performed By: #### 5 7021-8 ####[facility] [place] [id number] [place] [address] [place] Erythrocyte distribution width (RBC) [Ratio] 18.7 % High 11.5-15.0 [facility] Comment on above: Order Comment: Speci men Type: BLOOD SPECIMENOrdering Facility: [facility] Address: [address] [place] [address] Performed By: #### 5 7021-8 ####[facility]ALL[facility] [id number] [place] [address] [place] Hematocrit (Bld) [Volume fraction] 36.6 % Normal 36.0-46.0 [facility] Comment on above: Order Comment: Speci men Type: BLOOD SPECIMENOrdering Facility: [facility] Address: [address] [place] [address] Performed By: #### 5 7021-8 ####[facility]ITALLIA [id number] [place] [address] [place] Hemoglobin (Bld) [Mass/Vol] 12.3 g/dL Normal 11.5-15.5 [facility] Comment on above: Order Comment: Speci men Type: BLOOD SPECIMENOrdering Facility: [facility] Address: [address] [place] [address] Performed By: #### 5 7021-8 ####[facility] [place] [id number] [place] [address] [place] Immature granulocytes (Bld) [#/Vol] 0.03 10*3/uL Normal <0.10 [facility] Comment on above: Order Comment: Speci men Type: BLOOD SPECIMENOrdering Facility: [facility] Address: [address] [place] [address] Performed By: #### 5 7021-8 ####[facility]ITALA [id number] [place] [address] [place] Immature granulocytes/100 WBC (Bld) 0.5 % Normal [facility] Comment on above: Order Comment: Speci men Type: BLOOD SPECIMENOrdering Facility: [facility] Address: [address] [place] [address] Performed By: #### 5 7021-8 ####[facility]PITALLIA [id number] [place] [address] [place] Lymphocytes (Bld) [#/Vol] 2.41 10*3/uL Normal 1.00-4.00 [facility] Comment on above: Order Comment: Speci men Type: BLOOD SPECIMENOrdering Facility: [facility] Address: [address] [place] [address] Performed By: #### 5 7021-8 ####[facility] HOSPITALNCA [id number] [place] [address] [place] Lymphocytes/100 WBC (Bld) 37.4 % Normal [facility] Comment on above: Order Comment: Speci men Type: BLOOD SPECIMENOrdering Facility: [facility] Address: [address] [place] [address] Performed By: #### 5 7021-8 ####[facility]PITALNCLI [id number] [place] [address] [place] MCH (RBC) [Entitic mass] 31.2 pg Normal 26.0-34.0 [facility] Comment on above: Order Comment: Speci men Type: BLOOD SPECIMENOrdering Facility: [facility] Address: [address] [place] [address] Performed By: #### 5 7021-8 ####[facility] [place] [id number] [place] [address] [place] MCHC (RBC) [Mass/Vol] 33.6 g/dL Normal 30.5-36.0 [facility] Comment on above: Order Comment: Speci men Type: BLOOD SPECIMENOrdering Facility: [facility] Address: [address] [place] [address] Performed By: #### 5 7021-8 ####[facility]OSPITALNCLI [id number] [place] [address] [place] MCV (RBC) [Entitic vol] 92.9 fL Normal 80.0-100.0 [facility] Comment on above: Order Comment: Speci men Type: BLOOD SPECIMENOrdering Facility: [facility] Address: [address] [place] [address] Performed By: #### 5 7021-8 ####[facility] [place] [id number] [place] [address] [place] Monocytes (Bld) [#/Vol] 0.50 10*3/uL Normal <0.87 [facility] Comment on above: Order Comment: Speci men Type: BLOOD SPECIMENOrdering Facility: [facility] Address: [address] [place] [address] Performed By: #### 5 7021-8 ####[facility]ITALA [id number] [place] [address] [place] Monocytes/100 WBC (Bld) 7.8 % Normal [facility] Comment on above: Order Comment: Speci men Type: BLOOD SPECIMENOrdering Facility: [facility] Address: [address] [place] [address] Performed By: #### 5 7021-8 ####[facility]ITALA [id number] [place] [address] [place] Neutrophils (Bld) [#/Vol] 3.21 10*3/uL Normal 1.45-7.50 [facility] Comment on above: Order Comment: Speci men Type: BLOOD SPECIMENOrdering Facility: [facility] Address: [address] [place] [address] Performed By: #### 5 7021-8 ####[facility]ITALNCLIA [id number] [place] [address] [place] Neutrophils/100 WBC (Bld) 49.6 % Normal [facility] Comment on above: Order Comment: Speci men Type: BLOOD SPECIMENOrdering Facility: [facility] Address: [address] [place] [address] Performed By: #### 5 7021-8 ####[facility] BISHNUWKALIELIA [id number] [place] [address] [place] Nucleated RBC (Bld) [#/Vol] 10*3/uL Normal <0.01 [facility] Comment on above: Order Comment: Speci men Type: BLOOD SPECIMENOrdering Facility: [facility] Address: [address] [place] [address] Performed By: #### 5 7021-8 ####[facility] HOSPITALKALIELIA [id number] [place] [address] [place] Nucleated RBC/100 WBC (Bld) [Ratio] 0.0 /100 WBC Normal [facility] Comment on above: Order Comment: Speci men Type: BLOOD SPECIMENOrdering Facility: [facility] Address: [address] [place] [address] Performed By: #### 5 7021-8 ####[facility]ITALA [id number] [place] [address] [place] Platelet mean volume (Bld) [Entitic vol] 8.2 fL Low 9.0-12.7 [facility] Comment on above: Order Comment: Speci men Type: BLOOD SPECIMENOrdering Facility: [facility] Address: [address] [place] [address] Performed By: #### 5 7021-8 ####[facility]ITALL[facility] [id number] [place] [address] [place] Platelets (Bld) [#/Vol] 234 10*3/uL Normal 150-400 [facility] Comment on above: Order Comment: Speci men Type: BLOOD SPECIMENOrdering Facility: [facility] Address: [address] [place] [address] Performed By: #### 5 7021-8 ####[facility]ITALNCLIA [id number] [place] [address] [place] RBC (Bld) [#/Vol] 3.94 10*6/uL Normal 3.90-5.20 [facility] Comment on above: Order Comment: Speci men Type: BLOOD SPECIMENOrdering Facility: [facility] Address: [address] [place] [address] Performed By: #### 5 7021-8 ####[facility] ERCucaNCLIA [id number] [place] [address] [place] WBC (Bld) [#/Vol] 6.45 10*3/uL Normal 3.70-11.00 [facility] Comment on above: Order Comment: Speci men Type: BLOOD SPECIMENOrdering Facility: [facility] Address: [address] [place] [address] Performed By: #### 5 7021-8 ####[facility] HOSPITALNCCALDERONA [id number] [place] [address] [place] [facility] CNOVSPon 05-06-2024 CNOVSP Normal [facility] Comprehensive metabolic 2000 panelon 05-06-2024 Albumin [Mass/Vol] 4.4 g/dL Normal 3.9-4.9 [facility] Comment on above: Order Comment: Speci men Type: BLOOD SPECIMENOrdering Facility: [facility] Address: [address] [place] [address] Performed By: #### 2 4323-8 ####[facility]OSPITALNCLIA [id number] [place] [address] [place] ALP [Catalytic activity/Vol] 63 U/L Normal 34-123 [facility] Comment on above: Order Comment: Speci men Type: BLOOD SPECIMENOrdering Facility: [facility] Address: [address] [place] [address] Performed By: #### 2 4323-8 ####[facility] ERWNCLIA [id number] [place] [address] [place] ALT [Catalytic activity/Vol] 6 U/L Low 7-38 [facility] Comment on above: Order Comment: Speci men Type: BLOOD SPECIMENOrdering Facility: [facility] Address: [address] [place] [address] Performed By: #### 2 4323-8 ####[facility] ERWNCLIA [id number] [place] [address] [place] Anion gap [Moles/Vol] 11 mmol/L Normal 8-15 [facility] Comment on above: Order Comment: Speci men Type: BLOOD SPECIMENOrdering Facility: [facility] Address: [address] [place] [address] Performed By: #### 2 4323-8 ####[facility] HOSPITALLIA [id number] [place] [address] [place] AST [Catalytic activity/Vol] 15 U/L Normal 13-35 [facility] Comment on above: Order Comment: Speci men Type: BLOOD SPECIMENOrdering Facility: [facility] Address: [address] [place] [address] Performed By: #### 2 4323-8 ####[facility]PITALNCLIA [id number] [place] [address] [place] Bilirubin [Mass/Vol] 0.2 mg/dL Normal 0.2-1.3 [facility] Comment on above: Order Comment: Speci men Type: BLOOD SPECIMENOrdering Facility: [facility] Address: [address] [place], [place] [address] Performed By: #### 2 4323-8 ####[facility] HOSPITALLIA [id number] [place] [address] [place] Calcium [Mass/Vol] 9.7 mg/dL Normal 8.5-10.2 [facility] Comment on above: Order Comment: Speci men Type: BLOOD SPECIMENOrdering Facility: [facility] Address: [address] [place] [address] Performed By: #### 2 4323-8 ####[facility] HOSPITALNCLIA [id number] [place] [address] [place] Chloride [Moles/Vol] 102 mmol/L Normal 98-107 [facility] Comment on above: Order Comment: Speci men Type: BLOOD SPECIMENOrdering Facility: [facility] Address: [address] [place] [address] Performed By: #### 2 4323-8 ####[facility]PITALNCMOUNTAINSTAR [facility]ALTHCARE [id number] [place] [address] [place] CO2 [Moles/Vol] 25 mmol/L Normal 22-30 [facility] Comment on above: Order Comment: Speci men Type: BLOOD SPECIMENOrdering Facility: [facility] Address: [address] [place] [address] Performed By: #### 2 4323-8 ####[facility] HOSPITALLI [id number] [place] [address] [place] Creatinine [Mass/Vol] 0.76 mg/dL Normal 0.58-0.96 [facility] Comment on above: Order Comment: Speci men Type: BLOOD SPECIMENOrdering Facility: [facility] Address: [address] [place] [address] Performed By: #### 2 4323-8 ####[facility] [place] [id number] [place] [address] [place] [facility] Creatinine and Glomerular filtration rate.predicted panel (S/P/Bld) 87 mL/min/1.73m??? Normal >=60 [facility] Comment on above: Order Comment: Speci men Type: BLOOD SPECIMENOrdering Facility: [facility] Address: [address] [place] [address] Result Comment: Sana mated Glomerular Filtration Rate [...] actual GFR. Performed By: #### 2 4323-8 ####[facility]ITALNCLIA [id number] [place] [address] [place] Glucose [Mass/Vol] 88 mg/dL Normal 74-99 [facility] Comment on above: Order Comment: Umesh baugh Type: BLOOD SPECIMENOrdering Facility: [facility] Address: [address] [place] [address] Result Comment: The [place] [employer] (ADA) provides guidance for cutoff [...] Standards of Medical Care in Diabetes 2016, [place] [employer]. Diabetes Care. 2016.39(Suppl 1). Performed By: #### 2 4323-8 ####[facility] HOSPITALLIA [id number] [place] [address] [place] Potassium [Moles/Vol] 4.2 mmol/L Normal 3.7-5.1 [facility] Comment on above: Order Comment: Umesh baugh Type: BLOOD SPECIMENOrdering Facility: [facility] Address: [address] [id number] Performed By: #### 2 4323-8 ####[facility]PITALNCLIA [id number] [place] [address] [place] Protein [Mass/Vol] 7.2 g/dL Normal 6.3-8.0 [facility] Comment on above: Order Comment: Speci men Type: BLOOD SPECIMENOrdering Facility: [facility] Address: [address] [place] [address] Performed By: #### 2 4323-8 ####[facility]PITALNCLIA [id number] [place] [address] [place] Sodium [Moles/Vol] 138 mmol/L Normal 136-144 [facility] Comment on above: Order Comment: Speci men Type: BLOOD SPECIMENOrdering Facility: [facility] Address: [address] [place] [address] Performed By: #### 2 4323-8 ####[facility] [place] [id number] [place] [address] [place] Urea nitrogen [Mass/Vol] 12 mg/dL Normal 7-21 [facility] Comment on above: Order Comment: Speci men Type: BLOOD SPECIMENOrdering Facility: [facility] Address: [address] [place] [address] Performed By: #### 2 4323-8 ####[facility] [place] [id number] [place] [address] [place] CHEST WO IVCONon 05-03-19 CT CHEST WO IVCON Normal [facility] CBC W Auto Differential pane l (Bld)on 04-16-2024 Basophils (Bld) [#/Vol] 0.07 10*3/uL Normal <0.11 [facility] Comment on above: Order Comment: Speci men Type: BLOOD SPECIMENOrdering Facility: [facility] Address: [address] [place] [address] Performed By: #### 5 7021-8 ####[facility] [place] [id number] [place] [address] [place] Basophils/100 WBC (Bld) 1.1 % Normal [facility] Comment on above: Order Comment: Speci men Type: BLOOD SPECIMENOrdering Facility: [facility] Address: [address] [place] [address] Performed By: #### 5 7021-8 ####[facility] HOSPITALKALIELIA [id number] [place] [address] [place] Differential cell count method Nom (Bld) Auto Normal [facility] Comment on above: Order Comment: Speci men Type: BLOOD SPECIMENOrdering Facility: [facility] Address: [address] [place] [address] Performed By: #### 5 7021-8 ####[facility] HOSPITALKALIEA [id number] [place] [address] [place] Eosinophils (Bld) [#/Vol] 0.21 10*3/uL Normal <0.46 [facility] Comment on above: Order Comment: Speci men Type: BLOOD SPECIMENOrdering Facility: [facility] Address: [address] [place] [address] Performed By: #### 5 7021-8 ####[facility] [id number] [place] [address] [place] Eosinophils/100 WBC (Bld) 3.3 % Normal [facility] Comment on above: Order Comment: Speci men Type: BLOOD SPECIMENOrdering Facility: [facility] Address: [address] [place] [address] Performed By: #### 5 7021-8 ####[facility] H[facility]PITALNCLIA [id number] [place] [address] [place] Erythrocyte distribution width (RBC) [Ratio] 18.1 % High 11.5-15.0 [facility] Comment on above: Order Comment: Speci men Type: BLOOD SPECIMENOrdering Facility: [facility] Address: [address] [place] [address] Performed By: #### 5 7021-8 ####[facility] BISHNUWINSTON SALEMNCLIA [id number] [place] [address] [place] Hematocrit (Bld) [Volume fraction] 34.5 % Low 36.0-46.0 [facility] Comment on above: Order Comment: Speci men Type: BLOOD SPECIMENOrdering Facility: [facility] Address: [address] [place] [address] Performed By: #### 5 7021-8 ####[facility]ALL[facility] [id number] [place] [address] [place] Hemoglobin (Bld) [Mass/Vol] 11.8 g/dL Normal 11.5-15.5 [facility] Comment on above: Order Comment: Speci men Type: BLOOD SPECIMENOrdering Facility: [facility] Address: [address] [place] [address] Performed By: #### 5 7021-8 ####[facility] [id number] [place] [address] [place] Immature granulocytes (Bld) [#/Vol] 10*3/uL Normal <0.10 [facility] Comment on above: Order Comment: Speci men Type: BLOOD SPECIMENOrdering Facility: [facility] Address: [address] [place] [address] Performed By: #### 5 7021-8 ####[facility] [id number] [place] [address] [place] Immature granulocytes/100 WBC (Bld) 0.2 % Normal [facility] Comment on above: Order Comment: Speci men Type: BLOOD SPECIMENOrdering Facility: [facility] Address: [address] [place] [address] Performed By: #### 5 7021-8 ####[facility]ALL[facility] [id number] [place] [address] [place] Lymphocytes (Bld) [#/Vol] 2.17 10*3/uL Normal 1.00-4.00 [facility] Comment on above: Order Comment: Speci men Type: BLOOD SPECIMENOrdering Facility: [facility] Address: [address] [place] [address] Performed By: #### 5 7021-8 ####[facility] [id number] [place] [address] [place] Lymphocytes/100 WBC (Bld) 34.4 % Normal [facility] Comment on above: Order Comment: Speci men Type: BLOOD SPECIMENOrdering Facility: [facility] Address: [address] [place] [address] Performed By: #### 5 7021-8 ####[facility]ITALNCMOUNT[facility]STAR [facility]ALTHCARE [id number] [place] [address] [place] MCH (RBC) [Entitic mass] 31.3 pg Normal 26.0-34.0 [facility] Comment on above: Order Comment: Speci men Type: BLOOD SPECIMENOrdering Facility: [facility] Address: [address] [place] [address] Performed By: #### 5 7021-8 ####[facility]ITALNCLI [id number] [place] [address] [place] MCHC (RBC) [Mass/Vol] 34.2 g/dL Normal 30.5-36.0 [facility] Comment on above: Order Comment: Speci men Type: BLOOD SPECIMENOrdering Facility: [facility] Address: [address] [place] [address] Performed By: #### 5 7021-8 ####[facility]ITALNCLIA [id number] [place] [address] [place] MCV (RBC) [Entitic vol] 91.5 fL Normal 80.0-100.0 [facility] Comment on above: Order Comment: Speci men Type: BLOOD SPECIMENOrdering Facility: [facility] Address: [address] [place] [address] Performed By: #### 5 7021-8 ####[facility] BIHSNUCRUZITO [id number] [place] [address] [place] Monocytes (Bld) [#/Vol] 0.52 10*3/uL Normal <0.87 [facility] Comment on above: Order Comment: Speci men Type: BLOOD SPECIMENOrdering Facility: [facility] Address: [address] [place] [address] Performed By: #### 5 7021-8 ####[facility]PITALKALIEMOUNTAINSTAR HEALTHCARE [id number] [place] [address] [place] Monocytes/100 WBC (Bld) 8.2 % Normal [facility] Comment on above: Order Comment: Speci men Type: BLOOD SPECIMENOrdering Facility: [facility] Address: [address] [place] [address] Performed By: #### 5 7021-8 ####[facility] [id number] [place] [address] [place] Neutrophils (Bld) [#/Vol] 3.33 10*3/uL Normal 1.45-7.50 [facility] Comment on above: Order Comment: Speci men Type: BLOOD SPECIMENOrdering Facility: [facility] Address: [address] [place] [address] Performed By: #### 5 7021-8 ####[facility]PITALNCA [id number] [place] [address] [place] Neutrophils/100 WBC (Bld) 52.8 % Normal [facility] Comment on above: Order Comment: Speci men Type: BLOOD SPECIMENOrdering Facility: [facility] Address: [address] [place] [address] Performed By: #### 5 7021-8 ####[facility]ITALNCLIA [id number] [place] [address] [place] Nucleated RBC (Bld) [#/Vol] 10*3/uL Normal <0.01 [facility] Comment on above: Order Comment: Speci men Type: BLOOD SPECIMENOrdering Facility: [facility] Address: [address] [place] [address] Performed By: #### 5 7021-8 ####[facility] [id number] [place] [address] [place] Nucleated RBC/100 WBC (Bld) [Ratio] 0.0 /100 WBC Normal [facility] Comment on above: Order Comment: Speci men Type: BLOOD SPECIMENOrdering Facility: [facility] Address: [address] [place] [address] Performed By: #### 5 7021-8 ####[facility] [id number] [place] [address] [place] Platelet mean volume (Bld) [Entitic vol] 8.7 fL Low 9.0-12.7 [facility] Comment on above: Order Comment: Speci men Type: BLOOD SPECIMENOrdering Facility: [facility] Address: [address] [place] [address] Performed By: #### 5 7021-8 ####[facility] [id number] [place] [address] [place] Platelets (Bld) [#/Vol] 243 10*3/uL Normal 150-400 [facility] Comment on above: Order Comment: Speci men Type: BLOOD SPECIMENOrdering Facility: [facility] Address: [address] [place] [address] Performed By: #### 5 7021-8 ####[facility] [id number] [place] [address] [place] RBC (Bld) [#/Vol] 3.77 10*6/uL Low 3.90-5.20 [facility] Comment on above: Order Comment: Speci men Type: BLOOD SPECIMENOrdering Facility: [facility] Address: [address] [place] [address] Performed By: #### 5 7021-8 ####[facility] HOSPITALKALIELIA [id number] [place] [address] [place] WBC (Bld) [#/Vol] 6.31 10*3/uL Normal 3.70-11.00 [facility] Comment on above: Order Comment: Speci men Type: BLOOD SPECIMENOrdering Facility: [facility] Address: [address] [place] [address] Performed By: #### 5 7021-8 ####[facility]PITALKALIELIA [id number] [place] [address] [place] CNOVSPon 04-16-2024 CNOVSP Normal [facility] Comprehensive metabolic 2000 panelon 04-16-2024 Albumin [Mass/Vol] 3.9 g/dL Normal 3.9-4.9 [facility] Comment on above: Order Comment: Speci men Type: BLOOD SPECIMENOrdering Facility: [facility] Address: [address] [place] [address] Performed By: #### 2 4323-8 ####[facility]ITALNCLIA [id number] [place] [address] [place] ALP [Catalytic activity/Vol] 55 U/L Normal 34-123 [facility] Comment on above: Order Comment: Speci men Type: BLOOD SPECIMENOrdering Facility: [facility] Address: [address] [place] [address] Performed By: #### 2 4323-8 ####[facility]OSPITALKALIELIA [id number] [place] [address] [place] ALT [Catalytic activity/Vol] 8 U/L Normal 7-38 [facility] Comment on above: Order Comment: Speci men Type: BLOOD SPECIMENOrdering Facility: [facility] Address: [address] [place] [address] Performed By: #### 2 4323-8 ####[facility]ST[facility] MILLTOWNCLIA [id number] [place] [address] [place] Anion gap [Moles/Vol] 10 mmol/L Normal 8-15 [facility] Comment on above: Order Comment: Speci men Type: BLOOD SPECIMENOrdering Facility: [facility] Address: [address] [place] [address] Performed By: #### 2 4323-8 ####[facility] ERWNCLIA [id number] [place] [address] [place] AST [Catalytic activity/Vol] 16 U/L Normal 13-35 [facility] Comment on above: Order Comment: Speci men Type: BLOOD SPECIMENOrdering Facility: [facility] Address: [address] [place] [address] Performed By: #### 2 4323-8 ####[facility] ERWNCLIA [id number] [place] [address] [place] Bilirubin [Mass/Vol] 0.2 mg/dL Normal 0.2-1.3 [facility] Comment on above: Order Comment: Speci men Type: BLOOD SPECIMENOrdering Facility: [facility] Address: [address] [place] [address] Performed By: #### 2 4323-8 ####[facility] MILLWNCLIA [id number] [place] [address] [place] Calcium [Mass/Vol] 9.4 mg/dL Normal 8.5-10.2 [facility] Comment on above: Order Comment: Speci men Type: BLOOD SPECIMENOrdering Facility: [facility] Address: [address] [place] [address] Performed By: #### 2 4323-8 ####[facility]ITALNCLIA [id number] [place] [address] [place] Chloride [Moles/Vol] 100 mmol/L Normal 98-107 [facility] Comment on above: Order Comment: Speci men Type: BLOOD SPECIMENOrdering Facility: [facility] Address: [address] [place] [address] Performed By: #### 2 4323-8 ####[facility]OSPITALNCA [id number] [place] [address] [place] CO2 [Moles/Vol] 29 mmol/L Normal 22-30 [facility] Comment on above: Order Comment: Speci men Type: BLOOD SPECIMENOrdering Facility: [facility] Address: [address] [place] [address] Performed By: #### 2 4323-8 ####[facility] HOSPITALA [id number] [place] [address] [place] Creatinine [Mass/Vol] 0.68 mg/dL Normal 0.58-0.96 [facility] Comment on above: Order Comment: Speci men Type: BLOOD SPECIMENOrdering Facility: [facility] Address: [address] [place] [address] Performed By: #### 2 4323-8 ####[facility]ITALNCLIA [id number] [place] [address] [place] [facility] Creatinine and Glomerular filtration rate.predicted panel (S/P/Bld) 97 mL/min/1.73m??? Normal >=60 [facility] Comment on above: Order Comment: Speci men Type: BLOOD SPECIMENOrdering Facility: [facility] Address: [address] [place] [address] Result Comment: Sana mated Glomerular Filtration Rate [...] actual GFR. Performed By: #### 2 4323-8 ####[facility] HOSPITALKALIELetha [id number] [place] [address] [place] Glucose [Mass/Vol] 107 mg/dL High 74-99 [facility] Comment on above: Order Comment: Umesh baugh Type: BLOOD SPECIMENOrdering Facility: [facility] Address: [address] [place] [address] Result Comment: The [place] [employer] (ADA) provides guidance for cutoff [...] Standards of Medical Care in Diabetes 2016, [place] [employer]. Diabetes Care. 2016.39(Suppl 1). Performed By: #### 2 4323-8 ####[facility] HOSPITALA [id number] [place] [address] [place] Potassium [Moles/Vol] 3.1 mmol/L Low 3.7-5.1 [facility] Comment on above: Order Comment: Umesh baugh Type: BLOOD SPECIMENOrdering Facility: [facility] Address: [address] [place] [address] Performed By: #### 2 4323-8 ####[facility] HOSPITALKALIELILetha [id number] [place] [address] [place] Protein [Mass/Vol] 6.5 g/dL Normal 6.3-8.0 [facility] Comment on above: Order Comment: Speci men Type: BLOOD SPECIMENOrdering Facility: [facility] Address: [address] [place] [address] Performed By: #### 2 4323-8 ####[facility] MILLTOWNCLIA [id number] [place] [address] [place] Sodium [Moles/Vol] 139 mmol/L Normal 136-144 [facility] Comment on above: Order Comment: Speci men Type: BLOOD SPECIMENOrdering Facility: [facility] Address: [address] [place] [address] Performed By: #### 2 4323-8 ####[facility] MILLTOWNCLIA [id number] [place] [address] [place] Urea nitrogen [Mass/Vol] 13 mg/dL Normal 7-21 [facility] Comment on above: Order Comment: Speci men Type: BLOOD SPECIMENOrdering Facility: [facility] Address: [address] [place] [address] Performed By: #### 2 4323-8 ####[facility] MILLTOWNCLIA [id number] [place] [address] [place] Absolute neutrophil countOrd ered By: Ankit Marsh on 04-08-2024 Neutrophils (Bld) [#/Vol] 5.4 10*3/uL 2.0-7.7 [facility] Albumin to globulin ratioOrd ered By: Ankit Marsh on 04-08-2024 Albumin/Globulin [Mass ratio] 1.1 {ratio} 0.9-2.4 [facility] Amorphous sediment detection in urine sediment by light microscopyOrdered By: Ankit Marsh on 04-08-2024 Amorphous sediment LM Ql (Urine sed) 1+ [facility] Basophil percentageOrdered B y: Ankit Marsh on 04-08-2024 Basophils/100 WBC (Bld) 0.6 % 0-1 [facility] Bilirubin Test strip Ql (U)O rdered By: Ankit Marsh on 04-08-2024 Bilirubin Ql (U) Negative Negative [facility] Bilirubin, totalOrdered By: Ankit Marsh on 04-08-2024 Bilirubin [Mass/Vol] 0.50 mg/dL 0.20-1.00 [facility] Comment on above: For patients on eltr ombopag therapy, use of Dimension [place] TBIL is not recommended. Blood urea nitrogen (BUN)/cr eatinine ratioOrdered By: Ankit Marsh on 04-08-2024 Urea nitrogen/Creatinine [Mass ratio] 21.3 mg/mg High 10-20 [facility] CBC W/Diff, Automatedon 03-27 Absolute Lymph 1.99 X10 3/uL Normal 0.83-4.51 [facility] Comment on above: Performed By: #### L 500.4050, L100.0100, L501.2450 ####[facility] [address] [place], [address] Absolute Neut 5.4 X10 3/uL Normal 2.0-7.7 [facility] Comment on above: Performed By: #### L 500.4050, L100.0100, L501.2450 ####[facility] [address] [place], [address] Basophils/100 WBC (Bld) 0.6 % Normal 0-1 [facility] Comment on above: Performed By: #### L 500.4050, L100.0100, L501.2450 ####[facility] [address] [place], [address] Eosinophils/100 WBC (Bld) 0.1 % Normal 0-5 [facility] Comment on above: Performed By: #### L 500.4050, L100.0100, L501.2450 ####[facility] [address] [place], [address] Erythrocyte distribution width (RBC) [Ratio] 17.8 % High 11.6-14.6 [facility] Comment on above: Performed By: #### L 500.4050, L100.0100, L501.2450 ####[facility] [address] [place], [address] Hematocrit (Bld) [Volume fraction] 37.2 % Normal 37-47 [facility] Comment on above: Performed By: #### L 500.4050, L100.0100, L501.2450 ####[facility] [address] [place], [address] Hemoglobin (Bld) [Mass/Vol] 13.3 g/dL Normal 12.0-15.0 [facility] Comment on above: Performed By: #### L 500.4050, L100.0100, L501.2450 ####[facility] [address] [place], [address] IG% 0.400 Normal 0.0-0.9 [facility] Comment on above: Result Comment: IG% - Immature Granulocytes (promyelocytes, myelocytes andmetamyelocytes) > 1% indicates that a LEFT SHIFT is Present. Performed By: #### L 500.4050, L100.0100, L501.2450 ####[facility] [address] [place], [address] Lymphocytes/100 WBC (Bld) 25.0 % Normal 19-41 [facility] Comment on above: Performed By: #### L 500.4050, L100.0100, L501.2450 ####[facility] [address] [place], [address] MCH (RBC) [Entitic mass] 31.3 pg Normal 27.0-32.0 [facility] Comment on above: Performed By: #### L 500.4050, L100.0100, L501.2450 ####[facility] [address] [place], [address] MCHC (RBC) [Mass/Vol] 35.8 g/dL Normal 32-36 [facility] Comment on above: Performed By: #### L 500.4050, L100.0100, L501.2450 ####[facility] [address] [place], [address] MCV (RBC) [Entitic vol] 87.5 fL Normal 81-99 [facility] Comment on above: Performed By: #### L 500.4050, L100.0100, L501.2450 ####[facility] [address] [place], [address] Monocytes/100 WBC (Bld) 5.5 % Normal 0-10 [facility] Comment on above: Performed By: #### L 500.4050, L100.0100, L501.2450 ####[facility] [address] [place], [address] Neutrophils/100 WBC (Bld) 68.4 % Normal 47-70 [facility] Comment on above: Performed By: #### L 500.4050, L100.0100, L501.2450 ####[facility] [address] [place], [address] Nucleated RBC (Bld) [#/Vol] 0 10*3/uL Normal 0-5 [facility] Comment on above: Performed By: #### L 500.4050, L100.0100, L501.2450 ####[facility] [address] [place], [address] Platelet mean volume (Bld) [Entitic vol] 8.8 fL Normal 6.2-12.0 [facility] Comment on above: Performed By: #### L 500.4050, L100.0100, L501.2450 ####[facility] [address] [place], [address] Platelets (Bld) [#/Vol] 275 10*3/uL Normal 150-450 [facility] Comment on above: Performed By: #### L 500.4050, L100.0100, L501.2450 ####[facility] [address] [place], [address] RBC (Bld) [#/Vol] 4.25 10*6/uL Normal 4.2-5.4 [facility] Comment on above: Performed By: #### L 500.4050, L100.0100, L501.2450 ####[facility] [address] [place], [address] RDW SD 56.0 fl High 35.1-43.9 [facility] Comment on above: Performed By: #### L 500.4050, L100.0100, L501.2450 ####[facility] [address] [place], [address] WBC (Bld) [#/Vol] 8.0 10*3/uL Normal 4.4-11.0 [facility] Comment on above: Performed By: #### L 500.4050, L100.0100, L501.2450 ####[facility] [address] [place], [address] CNOVon 04-08-2024 CNOV Normal [facility] CNPNon 04-08-2024 CNPN Normal [facility] Carbon dioxide measurementOr dered By: Ankit Marsh on 04-08-2024 CO2 [Moles/Vol] 24.0 mmol/L 21.0-32.0 [facility] Chloride measurementOrdered By: Ankit Marsh on 04-08-2024 Chloride [Moles/Vol] 101 mmol/L 98-107 [facility] Comprehensive Metabolic Prof ilon 04-08-2024 Albumin [Mass/Vol] 3.8 g/dL Normal 3.2-5.0 [facility] Comment on above: Performed By: #### L 500.4050, L100.0100, L501.2450 ####[facility] [address] [place], [address] Albumin/Globulin [Mass ratio] 1.1 {ratio} Normal 0.9-2.4 [facility] Comment on above: Performed By: #### L 500.4050, L100.0100, L501.2450 ####[facility] [address] [place], [address] ALK P 45 U/L Normal 45-117 [facility] Comment on above: Performed By: #### L 500.4050, L100.0100, L501.2450 ####[facility] [address] [place], [address] ALT [Catalytic activity/Vol] 11 U/L Low 13-56 [facility] Comment on above: Performed By: #### L 500.4050, L100.0100, L501.2450 ####[facility] [address] [place], [address] AST [Catalytic activity/Vol] 18 U/L Normal 15-37 [facility] Comment on above: Performed By: #### L 500.4050, L100.0100, L501.2450 ####[facility] [address] [place], [address] Bilirubin [Mass/Vol] 0.50 mg/dL Normal 0.20-1.00 [facility] Comment on above: Result Comment: For patients on eltrombopag therapy, use of Dimension [place] TBIL is not recommended. Performed By: #### L 500.4050, L100.0100, L501.2450 ####[facility] [address] [place], [address] BUN/CRE 21.3 RATIO High 10-20 [facility] Comment on above: Performed By: #### L 500.4050, L100.0100, L501.2450 ####[facility] [address] [place], [address] CA,Total 9.5 mg/dL Normal 8.5-10.1 [facility] Comment on above: Performed By: #### L 500.4050, L100.0100, L501.2450 ####[facility] [address] [place], [address] Chloride [Moles/Vol] 101 mmol/L Normal 98-107 [facility] Comment on above: Performed By: #### L 500.4050, L100.0100, L501.2450 ####[facility] [address] [place], [address] CO2 [Moles/Vol] 24.0 mmol/L Normal 21.0-32.0 [facility] Comment on above: Performed By: #### L 500.4050, L100.0100, L501.2450 ####[facility] [address] [place], [address] Creatinine [Mass/Vol] 0.66 mg/dL Normal 0.55-1.02 [facility] Comment on above: Result Comment: The validity of the calculated GFR GFRAA in patients over70 years has not been determined. Clinical correlation isessential. Performed By: #### L 500.4050, L100.0100, L501.2450 ####[facility] [address] [place], [address] ECRCL 46.69 ml/min Normal [facility] Comment on above: Performed By: #### L 500.4050, L100.0100, L501.2450 ####[facility] [address] [place], [address] EST GFR - AA 116 mL/min Normal >60 [facility] Comment on above: Result Comment: Afri can [place] GFR Calc Performed By: #### L 500.4050, L100.0100, L501.2450 ####[facility] [address] [place], [address] GAP 11 Normal 5-15 [facility] Comment on above: Performed By: #### L 500.4050, L100.0100, L501.2450 ####[facility] [address] [place], [address] GFR/1.73 sq M.predicted among non-blacks MDRD (S/P/Bld) [Vol rate/Area] 96 mL/min/{1.73_m2} Normal >60 [facility] Comment on above: Result Comment: Non- GFR Calc Performed By: #### L 500.4050, L100.0100, L501.2450 ####[facility] [address] [place], [address] Globulin (S) [Mass/Vol] 3.6 g/dL Normal 2.2-4.2 [facility] Comment on above: Performed By: #### L 500.4050, L100.0100, L501.2450 ####[facility] [address] [place], [address] Glucose [Mass/Vol] 113 mg/dL High 74-106 [facility] Comment on above: Result Comment: Fast ing Glucose result from 100 to 125 mg/dLsuggests IMPAIRED HOMEOSTASIS per A.D.A. criteria. Performed By: #### L 500.4050, L100.0100, L501.2450 ####[facility] [address] [place], [address] Potassium [Moles/Vol] 2.7 mmol/L Invalid Interpretation Code 3.5-5.1 [facility] Comment on above: Result Comment: Crit ical Result(s) Called at: 16:35:33 04/08/2024 by: GANESH. Results read back by Shailesh Klein Performed By: #### L 500.4050, L100.0100, L501.2450 ####[facility] [address] [place], [address] Sodium [Moles/Vol] 136 mmol/L Normal 136-145 [facility] Comment on above: Performed By: #### L 500.4050, L100.0100, L501.2450 ####[facility] [address] [place], [address] T PROT 7.4 g/dL Normal 6.4-8.2 [facility] Comment on above: Performed By: #### L 500.4050, L100.0100, L501.2450 ####[facility] [address] [place], [address] Urea nitrogen [Mass/Vol] 14 mg/dL Normal 7-18 [facility] Comment on above: Performed By: #### L 500.4050, L100.0100, L501.2450 ####[facility] [address] [place], [address] Emergency Department Summary on 04-08-2024 Emergency Department Summary Normal [facility] Eosinophil percentageOrdered By: Ankit Marsh on 04-08-2024 Eosinophils/100 WBC (Bld) 0.1 % 0-5 [facility] Epithelial cells.squamous LM Ql (Urine sed)Ordered By: Ankit Mrash on 04-08-2024 Epithelial cells.squamous LM.HPF (Urine sed) [#/Area] 0 /[HPF] 5-10 [facility] Erythrocyte distribution wid th (RBC) [Ratio]Ordered By: Ankit Marsh on 04-08-2024 Erythrocyte distribution width (RBC) [Entitic vol] 56.0 fL High 35.1-43.9 [facility] Erythrocyte distribution wid th ratioOrdered By: Ankit Marsh on 04-08-2024 Erythrocyte distribution width (RBC) [Ratio] 17.8 % High 11.6-14.6 [facility] Estimated glomerular filtrat ion rate (GFR) AmericanOrdered By: Ankit Marsh on 04-08-2024 Estimated GFR (MDRD) Amer 116 mL/min >60 [facility] Comment on above: GFR Calc Estimation of creatinine lupe aranceOrdered By: Ankit Marsh on 04-08-2024 Estimated Creatinine Clearance Calc 46.69 ml/min [facility] Glomerular filtration rate ( GFR) estimationOrdered By: Ankit Marsh on 04-08-2024 Estimated GFR (MDRD) Non-Af Amer 96 mL/min >60 [facility] Comment on above: Non- GFR Calc Glucose Ql (U)Ordered By: Omayra Marsh on 04-08-2024 Urine Glucose (UA) Normal mg/dl Normal [facility] Glucose measurementOrdered B y: Ankit Marsh on 04-08-2024 Glucose [Mass/Vol] 113 mg/dL High 74-106 [facility] Comment on above: Fasting Glucose resu lt from 100 to 125 mg/dL suggests IMPAIRED HOMEOSTASIS per A.D.A. criteria. Hematocrit Auto (Bld) [Volum e fraction]Ordered By: Ankit Marsh on 04-08-2024 Hematocrit (Bld) [Volume fraction] 37.2 % 37-47 [facility] Hemoglobin measurementOrdere d By: Ankit Marsh on 04-08-2024 Hemoglobin (Bld) [Mass/Vol] 13.3 g/dL 12.0-15.0 [facility] Immature granulocytes/100 WB C Auto (Bld)Ordered By: Ankit Marsh on 04-08-2024 Immature granulocytes/100 WBC (Bld) 0.400 % 0.0-0.9 [facility] Comment on above: IG% - Immature Granu locytes (promyelocytes, myelocytes and metamyelocytes) > 1% indicates that a LEFT SHIFT is Present. Ketones Test strip Ql (U)Ord ered By: Ankit Marsh on 04-08-2024 Ketones Ql (U) 15 mg/dl High Negative [facility] Laboratory - Chemistry and C hemistry - challengeOrdered By: Ankit Marsh on 04-08-2024 AST [Catalytic activity/Vol] 18 U/L 15-37 [facility] Lipaseon 04-08-2024 Lipase [Catalytic activity/Vol] 24 U/L Normal 13-75 [facility] Comment on above: Result Comment: Efrem caldwell note:LIPASE revised reference range effective 22.New Lipase methodology. Expected to produce lower valuesthan the previous assay method.NEW Reference Range: 13 - 75 U/L Performed By: #### L 500.4050, L100.0100, L501.2450 ####[facility] [address] [place], [place], [id number] Lipase measurementOrdered By : Ankit Marsh on 04-08-2024 Lipase [Catalytic activity/Vol] 24 U/L 13-75 [facility] Comment on above: Please note:LIPASE r evised reference range effective 22. New Lipase methodology. Expected to produce lower values than the previous assay method. NEW Reference Range: 13 - 75 U/L Lymphocytes Auto (Unsp spec) [#/Vol]Ordered By: Ankit Marsh on 04-08-2024 Lymphocytes (Bld) [#/Vol] 1.99 10*3/uL 0.83-4.51 [facility] Lymphocytes/100 WBC Auto (Un sp spec)Ordered By: Ankit Marsh on 04-08-2024 Lymphocytes/100 WBC (Bld) 25.0 % 19-41 [facility] MCV (mean corpuscular volume ) determinationOrdered By: Ankit Marsh on 04-08-2024 MCV (RBC) [Entitic vol] 87.5 fL 81-99 [facility] Magnesiumon 04-08-2024 Magnesium [Mass/Vol] 1.9 mg/dL Normal 1.6-2.6 [facility] Comment on above: Performed By: #### L 501.5200 ####[facility] [address] [place], [place], [id number] Magnesium measurementOrdered By: Ankit Marsh on 04-08-2024 Magnesium [Mass/Vol] 1.9 mg/dL 1.6-2.6 [facility] Mean corpuscular hemoglobin (MCH) determinationOrdered By: Ankit Marsh on 04-08-2024 MCH (RBC) [Entitic mass] 31.3 pg 27.0-32.0 [facility] Mean corpuscular hemoglobin concentration (MCHC) determinationOrdered By: Ankit Marsh on 04-08-2024 MCHC (RBC) [Mass/Vol] 35.8 g/dL 32-36 [facility] Mean platelet volume determi nationOrdered By: Ankit Marsh on 04-08-2024 Platelet mean volume (Bld) [Entitic vol] 8.8 fL 6.2-12.0 [facility] Microscopic analysis of urin e for red blood cells (RBC)Ordered By: Ankit Marsh on 04-08-2024 Urine RBC 0-5 SEEN /hpf 0-5 [facility] Monocyte percentageOrdered B y: Ankit Marsh on 04-08-2024 Monocytes/100 WBC (Bld) 5.5 % 0-10 [facility] Mucus LM Ql (Urine sed)Order ed By: Ankit Marsh on 04-08-2024 Mucus Ql (Urine sed) 3+ /hpf [facility] Neutrophil percentageOrdered By: Ankit Marsh on 04-08-2024 Neutrophils/100 WBC (Bld) 68.4 % 47-70 [facility] Nitrite Test strip Ql (U)Ord ered By: Ankit Marsh on 04-08-2024 Nitrite Ql (U) Negative Negative [facility] Nucleated red blood cell per centageOrdered By: Ankit Marsh on 04-08-2024 Nucleated RBC/100 WBC (Bld) [Ratio] 0 % 0-5 [facility] Platelet countOrdered By: Omayra Marsh on 04-08-2024 Platelets (Bld) [#/Vol] 275 10*3/uL 150-450 [facility] Potassium measurementOrdered By: Ankit Marsh on 04-08-2024 Potassium [Moles/Vol] 2.7 mmol/L Low 3.5-5.1 [facility] Comment on above: Critical Result(s) C alled at: 16:35:33 04/08/2024 by: LISBETH KENNEDY. Results read back by Shailesh Klein Protein Test strip Ql (U)Ord ered By: Ankit Marsh on 04-08-2024 Protein Ql (U) 30 mg/dl High Negative [facility] RBC Auto (Bld) [#/Vol]Ordere d By: Ankit Marsh on 04-08-2024 RBC (Bld) [#/Vol] 4.25 10*6/uL 4.2-5.4 [facility] Serum anion gap measurementO rdered By: Ankit Marsh on 04-08-2024 Anion gap [Moles/Vol] 11 mmol/L 5-15 [facility] Serum globulin measurementOr dered By: Ankit Marsh on 04-08-2024 Globulin (S) [Mass/Vol] 3.6 g/dL 2.2-4.2 [facility] Serum or plasma alanine ramirez otransferase (ALT) measurementOrdered By: Ankit Marsh on 04-08-2024 ALT [Catalytic activity/Vol] 11 U/L Low 13-56 [facility] Serum or plasma albumin renetta urement (mass/volume)Ordered By: Ankit Marsh on 04-08-2024 Albumin [Mass/Vol] 3.8 g/dL 3.2-5.0 [facility] Serum or plasma alkaline marquez sphatase measurementOrdered By: Ankit Marsh on 04-08-2024 ALP [Catalytic activity/Vol] 45 U/L 45-117 [facility] Serum or plasma calcium renetta urement (mass/volume)Ordered By: Ankit Marsh on 04-08-2024 Calcium [Mass/Vol] 9.5 mg/dL 8.5-10.1 [facility] Serum or plasma creatinine m easurement (mass/volume)Ordered By: Ankit Marsh on 04-08-2024 Creatinine [Mass/Vol] 0.66 mg/dL 0.55-1.02 [facility] Comment on above: The validity of the calculated GFR & GFRAA in patients over 70 years has not been determined. Clinical correlation is essential. Serum or plasma urea nitroge n measurement (mass/volume)Ordered By: Ankit Marsh on 04-08-2024 Urea nitrogen [Mass/Vol] 14 mg/dL 7-18 [facility] Sodium levelOrdered By: Ankit Marsh on 04-08-2024 Sodium [Moles/Vol] 136 mmol/L 136-145 [facility] Total proteinOrdered By: Clinton Marsh on 04-08-2024 Protein [Mass/Vol] 7.4 g/dL 6.4-8.2 [facility] Transitional cells LM Ql (Ur ine sed)Ordered By: Ankit Marsh on 04-08-2024 Urine Transitional Epithelial Cells 0-5 SEEN /hpf 0-5 [facility] Urinalysis, Completeon 04-08 AMORPHOUS 1+ Normal [facility] Comment on above: Order Comment: COLOR OF URINE MAY AFFECT DIPSTICK RESULTS.CLEAN CATCH Performed By: #### L 400.0001 ####[facility] [address] [place], [address] BACTERIA 2+ /hpf Normal None Seen [facility] Comment on above: Order Comment: COLOR OF URINE MAY AFFECT DIPSTICK RESULTS.CLEAN CATCH Performed By: #### L 400.0001 ####[facility] [address] [place], [address] EPI,SQUAMOUS 0-5 SEEN Normal 5-10 [facility] Comment on above: Order Comment: COLOR OF URINE MAY AFFECT DIPSTICK RESULTS.CLEAN CATCH Performed By: #### L 400.0001 ####[facility] [address] [place], [address] EPI,TRANSITION 0-5 SEEN Normal 0-5 [facility] Comment on above: Order Comment: COLOR OF URINE MAY AFFECT DIPSTICK RESULTS.CLEAN CATCH Performed By: #### L 400.0001 ####[facility] [address] [place], [address] Mucus Ql (Urine sed) 3+ /hpf Normal [facility] Comment on above: Order Comment: COLOR OF URINE MAY AFFECT DIPSTICK RESULTS.CLEAN CATCH Performed By: #### L 400.0001 ####[facility] [address] [place], [address] RBC 0-5 SEEN Normal 0-5 [facility] Comment on above: Order Comment: COLOR OF URINE MAY AFFECT DIPSTICK RESULTS.CLEAN CATCH Performed By: #### L 400.0001 ####[facility] [address] [place], [place], [phone] WBC 0-5 SEEN Normal 0-5 [facility] Comment on above: Order Comment: COLOR OF URINE MAY AFFECT DIPSTICK RESULTS.CLEAN CATCH Performed By: #### L 400.0001 ####[facility] [address] [place], [place], [phone] Urine blood detectionOrdered By: Ankit Marsh on 04-08-2024 Urine Occult Blood 10 /ul High Negative [facility] Urine clarityOrdered By: Clinton Marsh on 04-08-2024 Clarity (U) Clear Clear [facility] Urine color determinationOrd ered By: Ankit Marsh on 04-08-2024 Color (U) Ellyn Yellow [facility] Urine leukocyte esterase det ection by dipstickOrdered By: Ankit Marsh on 04-08-2024 Leukocyte esterase Test strip Ql (U) 25 /ul High Negative [facility] Urine pHOrdered By: Ankit smart on 04-08-2024 pH (U) 6.0 [pH] 5.0 - 8.0 [facility] Urine sediment bacteria coun t by microscopy (number/high power field)Ordered By: Ankit Marsh on 04-08-2024 Bacteria LM.HPF (Urine sed) [#/Area] 2 /[HPF] None Seen [facility] Urine specific gravity measu rementOrdered By: Ankit Marsh on 04-08-2024 Specific gravity (U) [Rel density] 1.015 1.002-1.03 0 [facility] Urobilinogen Ql (U)Ordered B y: Ankit Marsh on 04-08-2024 Urine Urobilinogen Normal mg/dl Normal [facility] White blood cell (WBC) count Ordered By: Ankit Marsh on 04-08-2024 WBC (Bld) [#/Vol] 8.0 10*3/uL 4.4-11.0 [facility] White blood cell countOrdere d By: Ankit Marsh on 04-08-2024 Urine WBC 0-5 SEEN /hpf 0-5 [facility] CNPNon 03-25-2024 CNPN Normal [facility] CBC W Auto Differential pane l (Bld)on 03-22-2024 Basophils (Bld) [#/Vol] 0.05 10*3/uL Normal <0.11 [facility] Comment on above: Order Comment: Speci men Type: BLOOD SPECIMENOrdering Facility: [facility] Address: [address] [place] [address] Performed By: #### 5 7021-8 ####[facility] [id number] [place] [address] [place] Basophils/100 WBC (Bld) 1.0 % Normal [facility] Comment on above: Order Comment: Speci men Type: BLOOD SPECIMENOrdering Facility: [facility] Address: [address] [place] [address] Performed By: #### 5 7021-8 ####[facility] [id number] [place] [address] [place] Differential cell count method Nom (Bld) Auto Normal [facility] Comment on above: Order Comment: Speci men Type: BLOOD SPECIMENOrdering Facility: [facility] Address: [address] [place] [address] Performed By: #### 5 7021-8 ####[facility] [id number] [place] [address] [place] Eosinophils (Bld) [#/Vol] 0.10 10*3/uL Normal <0.46 [facility] Comment on above: Order Comment: Speci men Type: BLOOD SPECIMENOrdering Facility: [facility] Address: [address] [place] [address] Performed By: #### 5 7021-8 ####[facility] [id number] [place] [address] [place] Eosinophils/100 WBC (Bld) 2.0 % Normal [facility] Comment on above: Order Comment: Speci men Type: BLOOD SPECIMENOrdering Facility: [facility] Address: [address] [place] [address] Performed By: #### 5 7021-8 ####[facility] [id number] [place] [address] [place] Erythrocyte distribution width (RBC) [Ratio] 17.1 % High 11.5-15.0 [facility] Comment on above: Order Comment: Speci men Type: BLOOD SPECIMENOrdering Facility: [facility] Address: [address] [place] [address] Performed By: #### 5 7021-8 ####[facility] [id number] [place] [address] [place] Hematocrit (Bld) [Volume fraction] 35.1 % Low 36.0-46.0 [facility] Comment on above: Order Comment: Speci men Type: BLOOD SPECIMENOrdering Facility: [facility] Address: [address] [place] [address] Performed By: #### 5 7021-8 ####[facility] [id number] [place] [address] [place] Hemoglobin (Bld) [Mass/Vol] 11.6 g/dL Normal 11.5-15.5 [facility] Comment on above: Order Comment: Speci men Type: BLOOD SPECIMENOrdering Facility: [facility] Address: [address] [place] [address] Performed By: #### 5 7021-8 ####[facility] [id number] [place] [address] [place] Immature granulocytes (Bld) [#/Vol] 10*3/uL Normal <0.10 [facility] Comment on above: Order Comment: Speci men Type: BLOOD SPECIMENOrdering Facility: [facility] Address: [address] [place] [address] Performed By: #### 5 7021-8 ####[facility] MILLJUSTINWNCLIA [id number] [address] [place] Immature granulocytes/100 WBC (Bld) 0.0 % Normal [facility] Comment on above: Order Comment: Speci men Type: BLOOD SPECIMENOrdering Facility: [facility] Address: [address] [place] [address] Performed By: #### 5 7021-8 ####[facility] ERWNCLIA [id number] [place] [address] [place] Lymphocytes (Bld) [#/Vol] 1.80 10*3/uL Normal 1.00-4.00 [facility] Comment on above: Order Comment: Speci men Type: BLOOD SPECIMENOrdering Facility: [facility] Address: [address] [place] [address] Performed By: #### 5 7021-8 ####[facility]ITALNCLIA [id number] [place] [address] [place] Lymphocytes/100 WBC (Bld) 35.4 % Normal [facility] Comment on above: Order Comment: Speci men Type: BLOOD SPECIMENOrdering Facility: [facility] Address: [address] [place] [address] Performed By: #### 5 7021-8 ####[facility] ERWNCLIA [id number] [place] [address] [place] MCH (RBC) [Entitic mass] 30.2 pg Normal 26.0-34.0 [facility] Comment on above: Order Comment: Speci men Type: BLOOD SPECIMENOrdering Facility: [facility] Address: [address] [place] [address] Performed By: #### 5 7021-8 ####[facility]ITALNCLIA [id number] [place] [address] [place] MCHC (RBC) [Mass/Vol] 33.0 g/dL Normal 30.5-36.0 [facility] Comment on above: Order Comment: Speci men Type: BLOOD SPECIMENOrdering Facility: [facility] Address: [address] [place] [address] Performed By: #### 5 7021-8 ####[facility] [id number] [place] [address] [place] MCV (RBC) [Entitic vol] 91.4 fL Normal 80.0-100.0 [facility] Comment on above: Order Comment: Speci men Type: BLOOD SPECIMENOrdering Facility: [facility] Address: [address] [place] [address] Performed By: #### 5 7021-8 ####[facility] [id number] [place] [address] [place] Monocytes (Bld) [#/Vol] 0.41 10*3/uL Normal <0.87 [facility] Comment on above: Order Comment: Speci men Type: BLOOD SPECIMENOrdering Facility: [facility] Address: [address] [place] [address] Performed By: #### 5 7021-8 ####[facility] [id number] [place] [address] [place] Monocytes/100 WBC (Bld) 8.1 % Normal [facility] Comment on above: Order Comment: Speci men Type: BLOOD SPECIMENOrdering Facility: [facility] Address: [address] [place] [address] Performed By: #### 5 7021-8 ####[facility]ITALNCLI [id number] [place] [address] [place] Neutrophils (Bld) [#/Vol] 2.73 10*3/uL Normal 1.45-7.50 [facility] Comment on above: Order Comment: Speci men Type: BLOOD SPECIMENOrdering Facility: [facility] Address: [address] [place] [address] Performed By: #### 5 7021-8 ####[facility] [id number] [place] [address] [place] Neutrophils/100 WBC (Bld) 53.5 % Normal [facility] Comment on above: Order Comment: Speci men Type: BLOOD SPECIMENOrdering Facility: [facility] Address: [address] [place] [address] Performed By: #### 5 7021-8 ####[facility] [id number] [place] [address] [place] Nucleated RBC (Bld) [#/Vol] 10*3/uL Normal <0.01 [facility] Comment on above: Order Comment: Speci men Type: BLOOD SPECIMENOrdering Facility: [facility] Address: [address] [place] [address] Performed By: #### 5 7021-8 ####[facility]OSPITALNCA [id number] [place] [address] [place] Nucleated RBC/100 WBC (Bld) [Ratio] 0.0 /100 WBC Normal [facility] Comment on above: Order Comment: Speci men Type: BLOOD SPECIMENOrdering Facility: [facility] Address: [address] [place] [address] Performed By: #### 5 7021-8 ####[facility] HOSPITALNCA [id number] [place] [address] [place] Platelet mean volume (Bld) [Entitic vol] 8.2 fL Low 9.0-12.7 [facility] Comment on above: Order Comment: Speci men Type: BLOOD SPECIMENOrdering Facility: [facility] Address: [address] [place] [address] Performed By: #### 5 7021-8 ####[facility] MARCONCLIA [id number] [place] [address] [place] Platelets (Bld) [#/Vol] 208 10*3/uL Normal 150-400 [facility] Comment on above: Order Comment: Speci men Type: BLOOD SPECIMENOrdering Facility: [facility] Address: [address] [place] [address] Performed By: #### 5 7021-8 ####[facility] BISHNUWINSTON SALEMNCLIA [id number] [place] [address] [place] RBC (Bld) [#/Vol] 3.84 10*6/uL Low 3.90-5.20 [facility] Comment on above: Order Comment: Speci men Type: BLOOD SPECIMENOrdering Facility: [facility] Address: [address] [place] [address] Performed By: #### 5 7021-8 ####[facility]PITALNCA [id number] [place] [address] [place] WBC (Bld) [#/Vol] 5.09 10*3/uL Normal 3.70-11.00 [facility] Comment on above: Order Comment: Speci men Type: BLOOD SPECIMENOrdering Facility: [facility] Address: [address] [place] [address] Performed By: #### 5 7021-8 ####[facility]ITALNCLIA [id number] [place] [address] [place] [facility] [place] Comprehensive metabolic 2000 panelon 03-22-2024 Albumin [Mass/Vol] 4.3 g/dL Normal 3.9-4.9 [facility] Comment on above: Order Comment: Speci men Type: BLOOD SPECIMENOrdering Facility: [facility] Address: [address] [place] [address] Performed By: #### 2 4323-8 ####[facility] MILLTOWNCLIA [id number] [place] [address] [place] ALP [Catalytic activity/Vol] 55 U/L Normal 34-123 [facility] Comment on above: Order Comment: Speci men Type: BLOOD SPECIMENOrdering Facility: [facility] Address: [address] [place] [address] Performed By: #### 2 4323-8 ####[facility] HOSPITALTOWNCLIA [id number] [place] [address] [place] ALT [Catalytic activity/Vol] 7 U/L Normal 7-38 [facility] Comment on above: Order Comment: Speci men Type: BLOOD SPECIMENOrdering Facility: [facility] Address: [address] [place] [address] Performed By: #### 2 4323-8 ####[facility] HOSPITALLIA [id number] [place] [address] [place] Anion gap [Moles/Vol] 12 mmol/L Normal 8-15 [facility] Comment on above: Order Comment: Speci men Type: BLOOD SPECIMENOrdering Facility: [facility] Address: [address] [place] [address] Performed By: #### 2 4323-8 ####[facility] ERWNCLIA [id number] [place] [address] [place] AST [Catalytic activity/Vol] 16 U/L Normal 13-35 [facility] Comment on above: Order Comment: Speci men Type: BLOOD SPECIMENOrdering Facility: [facility] Address: [address] [place] [address] Performed By: #### 2 4323-8 ####[facility]ITALNCLIA [id number] [place] [address] [place] Bilirubin [Mass/Vol] 0.3 mg/dL Normal 0.2-1.3 [facility] Comment on above: Order Comment: Speci men Type: BLOOD SPECIMENOrdering Facility: [facility] Address: [address] [place] [address] Performed By: #### 2 4323-8 ####[facility]ITALNCM[facility] [id number] [place] [address] [place] Calcium [Mass/Vol] 9.3 mg/dL Normal 8.5-10.2 [facility] Comment on above: Order Comment: Speci men Type: BLOOD SPECIMENOrdering Facility: [facility] Address: [address] [place] [address] Performed By: #### 2 4323-8 ####[facility] [id number] [place] [address] [place] Chloride [Moles/Vol] 101 mmol/L Normal 98-107 [facility] Comment on above: Order Comment: Speci men Type: BLOOD SPECIMENOrdering Facility: [facility] Address: [address] [place] [address] Performed By: #### 2 4323-8 ####[facility] [id number] [place] [address] [place] CO2 [Moles/Vol] 26 mmol/L Normal 22-30 [facility] Comment on above: Order Comment: Speci men Type: BLOOD SPECIMENOrdering Facility: [facility] [facility] Address: [address] [place] [address] Performed By: #### 2 4323-8 ####[facility] [id number] [place] [address] [place] Creatinine [Mass/Vol] 0.73 mg/dL Normal 0.58-0.96 [facility] Comment on above: Order Comment: Speci men Type: BLOOD SPECIMENOrdering Facility: [facility] Address: [address] [place] [address] Performed By: #### 2 4323-8 ####[facility] [id number] [place] [address] [place] Creatinine and Glomerular filtration rate.predicted panel (S/P/Bld) 91 mL/min/1.73m??? Normal >=60 [facility] Comment on above: Order Comment: Umesh baugh Type: BLOOD SPECIMENOrdering Facility: [facility] Address: [address] [place] [address] Result Comment: Sana mated Glomerular Filtration Rate [...] By: #### 2 4323-8 ####[facility] [id number] [place] [address] [place] Glucose [Mass/Vol] 86 mg/dL Normal 74-99 [facility] Comment on above: Order Comment: Umesh baugh Type: BLOOD SPECIMENOrdering Facility: [facility] Address: [address] [place] [address] Result Comment: The [place] Diabetes [employer] (ADA) provides guidance for cutoff [...] Standards of Medical Care in Diabetes 2016, [place] [employer]. Diabetes Care. 2016.39(Suppl 1). Performed By: #### 2 4323-8 ####[facility] MILLTOWNCLIA [id number] [place] [address] [place] Potassium [Moles/Vol] 3.4 mmol/L Low 3.7-5.1 [facility] Comment on above: Order Comment: Speci men Type: BLOOD SPECIMENOrdering Facility: [facility] Address: [address] [place] [address] Performed By: #### 2 4323-8 ####[facility] MILLTOWNCLIA [id number] [place] [address] [place] Protein [Mass/Vol] 6.9 g/dL Normal 6.3-8.0 [facility] Comment on above: Order Comment: Speci men Type: BLOOD SPECIMENOrdering Facility: [facility] Address: [address] [place] [address] Performed By: #### 2 4323-8 ####[facility] [id number] [place] [address] [place] Sodium [Moles/Vol] 139 mmol/L Normal 136-144 [facility] Comment on above: Order Comment: Speci men Type: BLOOD SPECIMENOrdering Facility: [facility] Address: [address] [place] [address] Performed By: #### 2 4323-8 ####[facility] MILLWNCLIA [id number] [place] [address] [place] Urea nitrogen [Mass/Vol] 12 mg/dL Normal 7-21 [facility] Comment on above: Order Comment: Speci men Type: BLOOD SPECIMENOrdering Facility: [facility] Address: [address] [place] [address] Performed By: #### 2 4323-8 ####[facility]CL[facility] [id number] [place] [address] [place] CNPNon 03-19-2024 CNPN Normal [facility] CT ABD/PEL W IVCONon 024 CT ABD/PEL W IVCON Normal [facility] CNOVon 03-07-2024 CNOV Normal [facility] CNPNon 02-29-2024 CNPN Normal [facility] CNPNon 02-21-2024 CNPN Normal [facility] CNPNon 02-16-2024 CNPN Normal [facility] CBC W Auto Differential pane l (Bld)on 02-15-2024 Basophils (Bld) [#/Vol] 0.09 10*3/uL Normal <0.11 [facility] Comment on above: Order Comment: Speci men Type: BLOOD SPECIMENOrdering Facility: [facility] Address: [address] [place] [address] Performed By: #### 5 7021-8 ####[facility] [id number] [place] [address] [place] Basophils/100 WBC (Bld) 1.1 % Normal [facility] Comment on above: Order Comment: Speci men Type: BLOOD SPECIMENOrdering Facility: [facility] Address: [address] [place] [address] Performed By: #### 5 7021-8 ####[facility] [id number] [place] [address] [place] Differential cell count method Nom (Bld) Auto Normal [facility] Comment on above: Order Comment: Speci men Type: BLOOD SPECIMENOrdering Facility: [facility] Address: [address] [place] [address] Performed By: #### 5 7021-8 ####[facility] [id number] [place] [address] [place] Eosinophils (Bld) [#/Vol] 0.29 10*3/uL Normal <0.46 [facility] Comment on above: Order Comment: Speci men Type: BLOOD SPECIMENOrdering Facility: [facility] Address: [address] [place] [address] Performed By: #### 5 7021-8 ####[facility] LALYWKALIELIA [id number] [place] [address] [place] Eosinophils/100 WBC (Bld) 3.6 % Normal [facility] Comment on above: Order Comment: Speci men Type: BLOOD SPECIMENOrdering Facility: [facility] Address: [address] [place] [address] Performed By: #### 5 7021-8 ####[facility] LALYWKALIELIA [id number] [place] [address] [place] Erythrocyte distribution width (RBC) [Ratio] 15.0 % Normal 11.5-15.0 [facility] Comment on above: Order Comment: Speci men Type: BLOOD SPECIMENOrdering Facility: [facility] Address: [address] [place] [address] Performed By: #### 5 7021-8 ####[facility]ITALKALIELIA [id number] [place] [address] [place] Hematocrit (Bld) [Volume fraction] 37.6 % Normal 36.0-46.0 [facility] Comment on above: Order Comment: Speci men Type: BLOOD SPECIMENOrdering Facility: [facility] Address: [address] [place] [address] Performed By: #### 5 7021-8 ####[facility] LALYWNCLIA [id number] [place] [address] [place] Hemoglobin (Bld) [Mass/Vol] 11.8 g/dL Normal 11.5-15.5 [facility] Comment on above: Order Comment: Speci men Type: BLOOD SPECIMENOrdering Facility: [facility] Address: [address] [place] [address] Performed By: #### 5 7021-8 ####[facility]PITALKALIEA [id number] [place] [address] [place] Immature granulocytes (Bld) [#/Vol] 10*3/uL Normal <0.10 [facility] Comment on above: Order Comment: Speci men Type: BLOOD SPECIMENOrdering Facility: [facility] Address: [address] [place] [address] Performed By: #### 5 7021-8 ####[facility] [id number] [place] [address] [place] Immature granulocytes/100 WBC (Bld) 0.2 % Normal [facility] Comment on above: Order Comment: Speci men Type: BLOOD SPECIMENOrdering Facility: [facility] Address: [address] [place] [address] Performed By: #### 5 7021-8 ####[facility] [id number] [place] [address] [place] Lymphocytes (Bld) [#/Vol] 3.39 10*3/uL Normal 1.00-4.00 [facility] Comment on above: Order Comment: Speci men Type: BLOOD SPECIMENOrdering Facility: [facility] Address: [address] [place] [address] Performed By: #### 5 7021-8 ####[facility] [id number] [place] [address] [place] Lymphocytes/100 WBC (Bld) 42.1 % Normal [facility] Comment on above: Order Comment: Speci men Type: BLOOD SPECIMENOrdering Facility: [facility] Address: [address] [place] [address] Performed By: #### 5 7021-8 ####[facility] [id number] [place] [address] [place] MCH (RBC) [Entitic mass] 28.3 pg Normal 26.0-34.0 [facility] Comment on above: Order Comment: Speci men Type: BLOOD SPECIMENOrdering Facility: [facility] Address: [address] [place] [address] Performed By: #### 5 7021-8 ####[facility]ITALNCMOUNTAINSTAR [facility] [id number] [place] [address] [place] MCHC (RBC) [Mass/Vol] 31.4 g/dL Normal 30.5-36.0 [facility] Comment on above: Order Comment: Speci men Type: BLOOD SPECIMENOrdering Facility: [facility] Address: [address] [place] [address] Performed By: #### 5 7021-8 ####[facility]ITALNCMOUNTAINSTAR [facility]ALTH[facility] [id number] [place] [address] [place] MCV (RBC) [Entitic vol] 90.2 fL Normal 80.0-100.0 [facility] Comment on above: Order Comment: Speci men Type: BLOOD SPECIMENOrdering Facility: [facility] Address: [address] [place] [address] Performed By: #### 5 7021-8 ####[facility]ITALNCMOUNT[facility] [id number] [place] [address] [place] Monocytes (Bld) [#/Vol] 0.58 10*3/uL Normal <0.87 [facility] Comment on above: Order Comment: Speci men Type: BLOOD SPECIMENOrdering Facility: [facility] Address: [address] [place], [place] [address] Performed By: #### 5 7021-8 ####[facility] [id number] [place] [address] [place] Monocytes/100 WBC (Bld) 7.2 % Normal [facility] Comment on above: Order Comment: Speci men Type: BLOOD SPECIMENOrdering Facility: [facility] Address: [address] [place] [address] Performed By: #### 5 7021-8 ####[facility] MILLWNCLIA [id number] [place] [address] [place] Neutrophils (Bld) [#/Vol] 3.69 10*3/uL Normal 1.45-7.50 [facility] Comment on above: Order Comment: Speci men Type: BLOOD SPECIMENOrdering Facility: [facility] Address: [address] [place] [address] Performed By: #### 5 7021-8 ####[facility] MILLWNCLIA [id number] [place] [address] [place] Neutrophils/100 WBC (Bld) 45.8 % Normal [facility] Comment on above: Order Comment: Speci men Type: BLOOD SPECIMENOrdering Facility: [facility] Address: [address] [place] [address] Performed By: #### 5 7021-8 ####[facility]ITALNCLIA [id number] [place] [address] [place] Nucleated RBC (Bld) [#/Vol] 10*3/uL Normal <0.01 [facility] Comment on above: Order Comment: Speci men Type: BLOOD SPECIMENOrdering Facility: [facility] Address: [address] [place] [address] Performed By: #### 5 7021-8 ####[facility] MILLTOWNCLIA [id number] [place] [address] [place] Nucleated RBC/100 WBC (Bld) [Ratio] 0.0 /100 WBC Normal [facility] Comment on above: Order Comment: Speci men Type: BLOOD SPECIMENOrdering Facility: [facility] Address: [address] [place] [address] Performed By: #### 5 7021-8 ####[facility] MILLWNCLIA [id number] [place] [address] [place] Platelet mean volume (Bld) [Entitic vol] 9.4 fL Normal 9.0-12.7 [facility] Comment on above: Order Comment: Speci men Type: BLOOD SPECIMENOrdering Facility: [facility] Address: [address] [place] [address] Performed By: #### 5 7021-8 ####[facility]PITALKALIELIA [id number] [place] [address] [place] Platelets (Bld) [#/Vol] 407 10*3/uL High 150-400 [facility] Comment on above: Order Comment: Speci men Type: BLOOD SPECIMENOrdering Facility: [facility] Address: [address] [place] [address] Performed By: #### 5 7021-8 ####[facility]ITALNCLIA [id number] [place] [address] [place] RBC (Bld) [#/Vol] 4.17 10*6/uL Normal 3.90-5.20 [facility] Comment on above: Order Comment: Speci men Type: BLOOD SPECIMENOrdering Facility: [facility] Address: [address] [place] [address] Performed By: #### 5 7021-8 ####[facility]ITALNCLIA [id number] [place] [address] [place] WBC (Bld) [#/Vol] 8.06 10*3/uL Normal 3.70-11.00 [facility] Comment on above: Order Comment: Speci men Type: BLOOD SPECIMENOrdering Facility: [facility] Address: [address] [place] [address] Performed By: #### 5 7021-8 ####[facility]ITALNCLIA [id number] [place] [address] [place] Comprehensive metabolic 2000 panelon 02-15-2024 Albumin [Mass/Vol] 4.4 g/dL Normal 3.9-4.9 [facility] Comment on above: Order Comment: Speci men Type: BLOOD SPECIMENOrdering Facility: [facility] Address: [address] [place] [address] Performed By: #### 2 4323-8 ####[facility]ITALNCLIA [id number] [place] [address] [place] ALP [Catalytic activity/Vol] 98 U/L Normal 34-123 [facility] Comment on above: Order Comment: Speci men Type: BLOOD SPECIMENOrdering Facility: [facility] Address: [address] [place] [address] Performed By: #### 2 4323-8 ####[facility]ITALNCLIA [id number] [place] [address] [place] ALT [Catalytic activity/Vol] 10 U/L Normal 7-38 [facility] Comment on above: Order Comment: Speci men Type: BLOOD SPECIMENOrdering Facility: [facility] Address: [address] [place] [address] Performed By: #### 2 4323-8 ####[facility]ITALA [id number] [place] [address] [place] Anion gap [Moles/Vol] 14 mmol/L Normal 8-15 [facility] Comment on above: Order Comment: Speci men Type: BLOOD SPECIMENOrdering Facility: [facility] Address: [address] [place] [address] Performed By: #### 2 4323-8 ####[facility]ITALNCLIA [id number] [place] [address] [place] AST [Catalytic activity/Vol] 15 U/L Normal 13-35 [facility] Comment on above: Order Comment: Speci men Type: BLOOD SPECIMENOrdering Facility: [facility] Address: [address] [place] [address] Performed By: #### 2 4323-8 ####[facility] MILLTOWNCLIA [id number] [place] [address] [place] Bilirubin [Mass/Vol] 0.2 mg/dL Normal 0.2-1.3 [facility] Comment on above: Order Comment: Speci men Type: BLOOD SPECIMENOrdering Facility: [facility] Address: [address] [place] [address] Performed By: #### 2 4323-8 ####[facility] MILLTOWNCLIA [id number] [place] [address] [place] Calcium [Mass/Vol] 10.1 mg/dL Normal 8.5-10.2 [facility] Comment on above: Order Comment: Speci men Type: BLOOD SPECIMENOrdering Facility: [facility] Address: [address] [place] [address] Performed By: #### 2 4323-8 ####[facility] MILLTOWNCLIA [id number] [place] [address] [place] Chloride [Moles/Vol] 99 mmol/L Normal 98-107 [facility] Comment on above: Order Comment: Speci men Type: BLOOD SPECIMENOrdering Facility: [facility] Address: [address] [place] [address] Performed By: #### 2 4323-8 ####[facility] MILLTOWNCLIA [id number] [place] [address] [place] CO2 [Moles/Vol] 24 mmol/L Normal 22-30 [facility] Comment on above: Order Comment: Speci men Type: BLOOD SPECIMENOrdering Facility: [facility] Address: [address] [place] [address] Performed By: #### 2 4323-8 ####[facility] MILLTOWNCLIA [id number] [place] [address] [place] Creatinine [Mass/Vol] 0.57 mg/dL Low 0.58-0.96 [facility] Comment on above: Order Comment: Umesh baugh Type: BLOOD SPECIMENOrdering Facility: [facility] Address: [address] [place] [address] Performed By: #### 2 4323-8 ####[facility] [id number] [place] [address] [place] Creatinine and Glomerular filtration rate.predicted panel (S/P/Bld) 101 mL/min/1.73m??? Normal >=60 [facility] Comment on above: Order Comment: Umesh baugh Type: BLOOD SPECIMENOrdering Facility: [facility] Address: [address] [place] [address] Result Comment: Sana mated Glomerular Filtration Rate [...] By: #### 2 4323-8 ####[facility] [id number] [place] [address] [place] Glucose [Mass/Vol] 97 mg/dL Normal 74-99 [facility] Comment on above: Order Comment: Umesh baugh Type: BLOOD SPECIMENOrdering Facility: [facility] Address: [address] [place] [address] Result Comment: The [place] [employer] (ADA) provides guidance for cutoff [...] Standards of Medical Care in Diabetes 2016, [place] [employer]. Diabetes Care. 2016.39(Suppl 1). Performed By: #### 2 4323-8 ####[facility] [id number] [place] [address] [place] Potassium [Moles/Vol] 4.0 mmol/L Normal 3.7-5.1 [facility] Comment on above: Order Comment: Speci men Type: BLOOD SPECIMENOrdering Facility: [facility] Address: [address] [place], [place] [address] Performed By: #### 2 4323-8 ####[facility] [id number] [place] [address] [place] Protein [Mass/Vol] 7.9 g/dL Normal 6.3-8.0 [facility] Comment on above: Order Comment: Speci men Type: BLOOD SPECIMENOrdering Facility: [facility] Address: [address] [place] [address] Performed By: #### 2 4323-8 ####[facility] [id number] [place] [address] [place] Sodium [Moles/Vol] 137 mmol/L Normal 136-144 [facility] Comment on above: Order Comment: Speci men Type: BLOOD SPECIMENOrdering Facility: [facility] Address: [address] [place] [address] Performed By: #### 2 4323-8 ####[facility] [id number] [place] [address] [place] Urea nitrogen [Mass/Vol] 16 mg/dL Normal 7-21 [facility] Comment on above: Order Comment: Speci men Type: BLOOD SPECIMENOrdering Facility: [facility] Address: [address] [place] [address] Performed By: #### 2 4323-8 ####[facility] [id number] [place] [address] [place] CNPNon 02-13-2024 CNPN Normal [facility] CNPNon 02-12-2024 CNPN Normal [facility] CBC W/Diff, Automatedon 01-25 Absolute Lymph 2.00 X10 3/uL Normal 0.83-4.51 [facility] Comment on above: Performed By: #### L 501.5200, L100.0100, L503.6030, L506.1000, L500.4050, L501.9520, L503.0105 ####[facility] [address] [facility] [place], [address] Absolute Neut 3.7 X10 3/uL Normal 2.0-7.7 [facility] Comment on above: Performed By: #### L 501.5200, L100.0100, L503.6030, L506.1000, L500.4050, L501.9520, L503.0105 ####[facility] [address] [facility] [place], [address] Basophils/100 WBC (Bld) 0.9 % Normal 0-1 [facility] Comment on above: Performed By: #### L 501.5200, L100.0100, L503.6030, L506.1000, L500.4050, L501.9520, L503.0105 ####[facility] [address] [facility] [place], [address] Eosinophils/100 WBC (Bld) 3.7 % Normal 0-5 [facility] Comment on above: Performed By: #### L 501.5200, L100.0100, L503.6030, L506.1000, L500.4050, L501.9520, L503.0105 ####[facility] [address] [place], [address] Erythrocyte distribution width (RBC) [Ratio] 15.3 % High 11.6-14.6 [facility] Comment on above: Performed By: #### L 501.5200, L100.0100, L503.6030, L506.1000, L500.4050, L501.9520, L503.0105 ####[facility] [address] [place], [address] Hematocrit (Bld) [Volume fraction] 39.3 % Normal 37-47 [facility] Comment on above: Performed By: #### L 501.5200, L100.0100, L503.6030, L506.1000, L500.4050, L501.9520, L503.0105 ####[facility] [address] [place], [address] Hemoglobin (Bld) [Mass/Vol] 12.5 g/dL Normal 12.0-15.0 [facility] Comment on above: Performed By: #### L 501.5200, L100.0100, L503.6030, L506.1000, L500.4050, L501.9520, L503.0105 ####[facility] [address] [place], [address] IG% 0.500 Normal 0.0-0.9 [facility] Comment on above: Result Comment: IG% - Immature Granulocytes (promyelocytes, myelocytes andmetamyelocytes) > 1% indicates that a LEFT SHIFT is Present. Performed By: #### L 501.5200, L100.0100, L503.6030, L506.1000, L500.4050, L501.9520, L503.0105 ####[facility] [address] [place], [address] Lymphocytes/100 WBC (Bld) 31.2 % Normal 19-41 [facility] Comment on above: Performed By: #### L 501.5200, L100.0100, L503.6030, L506.1000, L500.4050, L501.9520, L503.0105 ####[facility] [address] [place], [address] MCH (RBC) [Entitic mass] 28.5 pg Normal 27.0-32.0 [facility] Comment on above: Performed By: #### L 501.5200, L100.0100, L503.6030, L506.1000, L500.4050, L501.9520, L503.0105 ####[facility] [address] [place], [address] MCHC (RBC) [Mass/Vol] 31.8 g/dL Low 32-36 [facility] Comment on above: Performed By: #### L 501.5200, L100.0100, L503.6030, L506.1000, L500.4050, L501.9520, L503.0105 ####[facility] [address] [place], [address] MCV (RBC) [Entitic vol] 89.7 fL Normal 81-99 [facility] Comment on above: Performed By: #### L 501.5200, L100.0100, L503.6030, L506.1000, L500.4050, L501.9520, L503.0105 ####[facility] [address] [place], [address] Monocytes/100 WBC (Bld) 5.9 % Normal 0-10 [facility] Comment on above: Performed By: #### L 501.5200, L100.0100, L503.6030, L506.1000, L500.4050, L501.9520, L503.0105 ####[facility] [address] [place], [address] Neutrophils/100 WBC (Bld) 57.8 % Normal 47-70 [facility] Comment on above: Performed By: #### L 501.5200, L100.0100, L503.6030, L506.1000, L500.4050, L501.9520, L503.0105 ####[facility] [address] [place], [address] Nucleated RBC (Bld) [#/Vol] 0 10*3/uL Normal 0-5 [facility] Comment on above: Performed By: #### L 501.5200, L100.0100, L503.6030, L506.1000, L500.4050, L501.9520, L503.0105 ####[facility] [address] [place], [address] Platelet mean volume (Bld) [Entitic vol] 10.1 fL Normal 6.2-12.0 [facility] Comment on above: Performed By: #### L 501.5200, L100.0100, L503.6030, L506.1000, L500.4050, L501.9520, L503.0105 ####[facility] [address] [place], [address] Platelets (Bld) [#/Vol] 297 10*3/uL Normal 150-450 [facility] Comment on above: Performed By: #### L 501.5200, L100.0100, L503.6030, L506.1000, L500.4050, L501.9520, L503.0105 ####[facility] [address] [place], [address] RBC (Bld) [#/Vol] 4.38 10*6/uL Normal 4.2-5.4 [facility] Comment on above: Performed By: #### L 501.5200, L100.0100, L503.6030, L506.1000, L500.4050, L501.9520, L503.0105 ####[facility] [address] [place], [address] RDW SD 50.6 fl High 35.1-43.9 [facility] Comment on above: Performed By: #### L 501.5200, L100.0100, L503.6030, L506.1000, L500.4050, L501.9520, L503.0105 ####[facility] [address] [place], [address] WBC (Bld) [#/Vol] 6.4 10*3/uL Normal 4.4-11.0 [facility] Comment on above: Performed By: #### L 501.5200, L100.0100, L503.6030, L506.1000, L500.4050, L501.9520, L503.0105 ####[facility] [address] [place], [address] [facility] 02-07-2024 Albumin [Mass/Vol] 3.8 g/dL Normal 3.2-5.0 [facility] Comment on above: Performed By: #### L 501.5200, L100.0100, L503.6030, L506.1000, L500.4050, L501.9520, L503.0105 ####[facility] [address] [place], [address] Albumin/Globulin [Mass ratio] 0.9 {ratio} Normal 0.9-2.4 [facility] Comment on above: Performed By: #### L 501.5200, L100.0100, L503.6030, L506.1000, L500.4050, L501.9520, L503.0105 ####[facility] [address] [place], [address] ALK P 91 U/L Normal 45-117 [facility] Comment on above: Performed By: #### L 501.5200, L100.0100, L503.6030, L506.1000, L500.4050, L501.9520, L503.0105 ####[facility] [address] [place], [address] ALT [Catalytic activity/Vol] 14 U/L Normal 13-56 [facility] Comment on above: Performed By: #### L 501.5200, L100.0100, L503.6030, L506.1000, L500.4050, L501.9520, L503.0105 ####[facility] [address] [place], [address] AST [Catalytic activity/Vol] 21 U/L Normal 15-37 [facility] Comment on above: Performed By: #### L 501.5200, L100.0100, L503.6030, L506.1000, L500.4050, L501.9520, L503.0105 ####[facility] [address] [place], [address] Bilirubin [Mass/Vol] 0.50 mg/dL Normal 0.20-1.00 [facility] Comment on above: Result Comment: For patients on eltrombopag therapy, use of Dimension [place] TBIL is not recommended. Performed By: #### L 501.5200, L100.0100, L503.6030, L506.1000, L500.4050, L501.9520, L503.0105 ####[facility] [address] [place], [address] BUN/CRE 31.4 RATIO High 10-20 [facility] Comment on above: Performed By: #### L 501.5200, L100.0100, L503.6030, L506.1000, L500.4050, L501.9520, L503.0105 ####[facility] [address] [place], [address] CA,Total 9.5 mg/dL Normal 8.5-10.1 [facility] Comment on above: Performed By: #### L 501.5200, L100.0100, L503.6030, L506.1000, L500.4050, L501.9520, L503.0105 ####[facility] [address] [place], [address] Chloride [Moles/Vol] 103 mmol/L Normal 98-107 [facility] Comment on above: Performed By: #### L 501.5200, L100.0100, L503.6030, L506.1000, L500.4050, L501.9520, L503.0105 ####[facility] [address] [place], [address] CO2 [Moles/Vol] 30.0 mmol/L Normal 21.0-32.0 [facility] Comment on above: Performed By: #### L 501.5200, L100.0100, L503.6030, L506.1000, L500.4050, L501.9520, L503.0105 ####[facility] [address] [place], [address] Creatinine [Mass/Vol] 0.57 mg/dL Normal 0.55-1.02 [facility] Comment on above: Result Comment: The validity of the calculated GFR GFRAA in patients over70 years has not been determined. Clinical correlation isessential. Performed By: #### L 501.5200, L100.0100, L503.6030, L506.1000, L500.4050, L501.9520, L503.0105 ####[facility] [address] [place], [address] EST GFR - AA 136 mL/min Normal >60 [facility] Comment on above: Result Comment: Afri can [place] GFR Calc Performed By: #### L 501.5200, L100.0100, L503.6030, L506.1000, L500.4050, L501.9520, L503.0105 ####[facility] [address] [place], [address] GAP 5 Normal 5-15 [facility] Comment on above: Performed By: #### L 501.5200, L100.0100, L503.6030, L506.1000, L500.4050, L501.9520, L503.0105 ####[facility] [address] [place], [address] GFR/1.73 sq M.predicted among non-blacks MDRD (S/P/Bld) [Vol rate/Area] 112 mL/min/{1.73_m2} Normal >60 [facility] Comment on above: Result Comment: Non- GFR Calc Performed By: #### L 501.5200, L100.0100, L503.6030, L506.1000, L500.4050, L501.9520, L503.0105 ####[facility] [address] [place], [address] Globulin (S) [Mass/Vol] 4.2 g/dL Normal 2.2-4.2 [facility] Comment on above: Performed By: #### L 501.5200, L100.0100, L503.6030, L506.1000, L500.4050, L501.9520, L503.0105 ####[facility] [address] [place], [address] Glucose [Mass/Vol] 115 mg/dL High 74-106 [facility] Comment on above: Result Comment: Fast ing Glucose result from 100 to 125 mg/dLsuggests IMPAIRED HOMEOSTASIS per A.D.A. criteria. Performed By: #### L 501.5200, L100.0100, L503.6030, L506.1000, L500.4050, L501.9520, L503.0105 ####[facility] [address] [place], [address] Potassium [Moles/Vol] 3.4 mmol/L Low 3.5-5.1 [facility] Comment on above: Performed By: #### L 501.5200, L100.0100, L503.6030, L506.1000, L500.4050, L501.9520, L503.0105 ####[facility] [address] [place], [address] Sodium [Moles/Vol] 138 mmol/L Normal 136-145 [facility] Comment on above: Performed By: #### L 501.5200, L100.0100, L503.6030, L506.1000, L500.4050, L501.9520, L503.0105 ####[facility] [address] [place], [address] T PROT 8.0 g/dL Normal 6.4-8.2 [facility] Comment on above: Performed By: #### L 501.5200, L100.0100, L503.6030, L506.1000, L500.4050, L501.9520, L503.0105 ####[facility] [address] [place], [address] Urea nitrogen [Mass/Vol] 18 mg/dL Normal 7-18 [facility] Comment on above: Performed By: #### L 501.5200, L100.0100, L503.6030, L506.1000, L500.4050, L501.9520, L503.0105 ####[facility] [address] [place], [address] Iron+Iron Binding Capacityon 02-07-2024 Iron [Mass/Vol] 68 ug/dL Normal 50-170 [facility] Comment on above: Performed By: #### L 501.5200, L100.0100, L503.6030, L506.1000, L500.4050, L501.9520, L503.0105 ####[facility] [address] [place], [address] IRON SATURATION 15.5 Normal 15.0-55.0 [facility] Comment on above: Performed By: #### L 501.5200, L100.0100, L503.6030, L506.1000, L500.4050, L501.9520, L503.0105 ####[facility] [address] [place], [address] TIBC 438 ug/dL Normal 250-450 [facility] Comment on above: Performed By: #### L 501.5200, L100.0100, L503.6030, L506.1000, L500.4050, L501.9520, L503.0105 ####[facility] [address] [place], [address] Magnesiumon 02-07-2024 Magnesium [Mass/Vol] 2.1 mg/dL Normal 1.6-2.6 [facility] Comment on above: Performed By: #### L 501.5200, L100.0100, L503.6030, L506.1000, L500.4050, L501.9520, L503.0105 ####[facility] [address] [place], [address] Thyroid Stim Hormone (TSH)on 02-07-2024 TSH 1.500 uIU/mL Normal 0.358-3.74 0 [facility] Comment on above: Performed By: #### L 501.5200, L100.0100, L503.6030, L506.1000, L500.4050, L501.9520, L503.0105 ####[facility] [address] [place], [address] Vitamin B12on 02-07-2024 Cobalamin (Vitamin B12) [Mass/Vol] 552 pg/mL Normal 211-911 [facility] Comment on above: Performed By: #### L 501.5200, L100.0100, L503.6030, L506.1000, L500.4050, L501.9520, L503.0105 ####[facility] [address] [place], [address] Vitamin D,25 Hydroxyon 02-06 Vitamin D 25-OH 30.5 ng/mL Normal [facility] Comment on above: Result Comment: Edwige min D 25(OH) Status Range Deficiency <20 ng/mL (50nmol/L) Insufficiency 20 - 30 ng/mL (50 - 75 nmol/L) Sufficiency 30 - 100 ng/mL (75 - 250 nmol/L) Toxicity >100 ng/mL (>250 nmol/L) Performed By: #### L 501.5200, L100.0100, L503.6030, L506.1000, L500.4050, L501.9520, L503.0105 ####[facility] [address] [place], [address] CBC W/Diff, Automatedon 01-25 Absolute Neut Normal 2.0-7.7 [facility] Comment on above: Result Comment: TERELL ENT LEFT, WILL BE BACK MONDAY MORNING FOR LABS. Performed By: #### L 500.4050, L100.0100, L503.6030 ####[facility] [address] [place], [address] HCT Normal 37-47 [facility] Comment on above: Result Comment: TERELL ENT LEFT, WILL BE BACK MONDAY MORNING FOR LABS. Performed By: #### L 500.4050, L100.0100, L503.6030 ####[facility] [address] [place], [address] HGB Normal 12.0-15.0 [facility] Comment on above: Result Comment: TERELL ENT LEFT, WILL BE BACK MONDAY MORNING FOR LABS. Performed By: #### L 500.4050, L100.0100, L503.6030 ####[facility] [address] [place], [address] MCH Normal 27.0-32.0 [facility] Comment on above: Result Comment: TERELL ENT LEFT, WILL BE BACK MONNES MORNING FOR LABS. Performed By: #### L 500.4050, L100.0100, L503.6030 ####[facility] [address] [place], [address] MCHC Normal 32-36 [facility] Comment on above: Result Comment: TERELL ENT LEFT, WILL BE BACK MONDAY MORNING FOR LABS. Performed By: #### L 500.4050, L100.0100, L503.6030 ####[facility] [address] [place], [address] MCV Normal 81-99 [facility] Comment on above: Result Comment: TERELL ENT LEFT, WILL BE BACK MONNES MORNING FOR LABS. Performed By: #### L 500.4050, L100.0100, L503.6030 ####[facility] [address] [place], [address] NEUT% Normal 47-70 [facility] Comment on above: Result Comment: TERELL ENT LEFT, WILL BE BACK MONDAY MORNING FOR LABS. Performed By: #### L 500.4050, L100.0100, L503.6030 ####[facility] [address] [place], [address] PLT Normal 150-450 [facility] Comment on above: Result Comment: TERELL ENT LEFT, WILL BE BACK MONDAY MORNING FOR LABS. Performed By: #### L 500.4050, L100.0100, L503.6030 ####[facility] [address] [place], [address] RBC Normal 4.2-5.4 [facility] Comment on above: Result Comment: TERELL ENT LEFT, WILL BE BACK MONDAY MORNING FOR LABS. Performed By: #### L 500.4050, L100.0100, L503.6030 ####[facility] [address] [place], [address] RDW CV Normal 11.6-14.6 [facility] Comment on above: Result Comment: TERELL ENT LEFT, WILL BE BACK MONDAY MORNING FOR LABS. Performed By: #### L 500.4050, L100.0100, L503.6030 ####[facility] [address] [place], [address] RDW SD Normal 35.1-43.9 [facility] Comment on above: Result Comment: TERELL ENT LEFT, WILL BE BACK MONDAY MORNING FOR LABS. Performed By: #### L 500.4050, L100.0100, L503.6030 ####[facility] [address] [place], [address] WBC Normal 4.4-11.0 [facility] Comment on above: Result Comment: TERELL ENT LEFT, WILL BE BACK MONDAY MORNING FOR LABS. Performed By: #### L 500.4050, L100.0100, L503.6030 ####[facility] [address] [place], [address] Comprehensive Metabolic Prof ilon 2024 ALB Normal 3.2-5.0 [facility] Comment on above: Result Comment: TERELL ENT LEFT, WILL BE BACK MONNES MORNING FOR LABS. Performed By: #### L 500.4050, L100.0100, L503.6030 ####[facility] [address] [place], [address] ALK P Normal 45-117 [facility] Comment on above: Result Comment: TERELL ENT LEFT, WILL BE BACK MONDAY MORNING FOR LABS. Performed By: #### L 500.4050, L100.0100, L503.6030 ####[facility] [address] [place], [address] ALT Normal 13-56 [facility] Comment on above: Result Comment: TERELL ENT LEFT, WILL BE BACK MONDAY MORNING FOR LABS. Performed By: #### L 500.4050, L100.0100, L503.6030 ####[facility] [address] [place], [address] AST Normal 15-37 [facility] Comment on above: Result Comment: TERELL ENT LEFT, WILL BE BACK MONDAY MORNING FOR LABS. Performed By: #### L 500.4050, L100.0100, L503.6030 ####[facility] [address] [place], [address] BUN Normal 7-18 [facility] Comment on above: Result Comment: TERELL ENT LEFT, WILL BE BACK MONDAY MORNING FOR LABS. Performed By: #### L 500.4050, L100.0100, L503.6030 ####[facility] [address] [place], [address] BUN/CRE Normal 10-20 [facility] Comment on above: Result Comment: TERELL ENT LEFT, WILL BE BACK MONNES MORNING FOR LABS. Performed By: #### L 500.4050, L100.0100, L503.6030 ####[facility] [address] [place], [address] CA,Total Normal 8.5-10.1 [facility] Comment on above: Result Comment: TERELL ENT LEFT, WILL BE BACK MONNES MORNING FOR LABS. Performed By: #### L 500.4050, L100.0100, L503.6030 ####[facility] [address] [place], [address] CL Normal 98-107 [facility] Comment on above: Result Comment: TERELL ENT LEFT, WILL BE BACK MONNES MORNING FOR LABS. Performed By: #### L 500.4050, L100.0100, L503.6030 ####[facility] [address] [place], [address] CO2 Normal 21.0-32.0 [facility] Comment on above: Result Comment: TERELL ENT LEFT, WILL BE BACK MONDAY MORNING FOR LABS. Performed By: #### L 500.4050, L100.0100, L503.6030 ####[facility] [address] [place], [address] CREAT,SERUM Normal 0.55-1.02 [facility] Comment on above: Result Comment: TERELL ENT LEFT, WILL BE BACK MONDAY MORNING FOR LABS. Performed By: #### L 500.4050, L100.0100, L503.6030 ####[facility] [address] [place], [address] EST GFR Normal >60 [facility] Comment on above: Result Comment: TERELL ENT LEFT, WILL BE BACK MONDAY MORNING FOR LABS. Performed By: #### L 500.4050, L100.0100, L503.6030 ####[facility] [address] [place], [address] EST GFR - AA Normal >60 [facility] Comment on above: Result Comment: TERELL ENT LEFT, WILL BE BACK MONDAY MORNING FOR LABS. Performed By: #### L 500.4050, L100.0100, L503.6030 ####[facility] [address] [place], [address] GAP Normal 5-15 [facility] Comment on above: Result Comment: TERELL ENT LEFT, WILL BE BACK MONDAY MORNING FOR LABS. Performed By: #### L 500.4050, L100.0100, L503.6030 ####[facility] [address] [place], [address] GLU Normal 74-106 [facility] Comment on above: Result Comment: TERELL ENT LEFT, WILL BE BACK MONDAY MORNING FOR LABS. Performed By: #### L 500.4050, L100.0100, L503.6030 ####[facility] [address] [place], [address] Potassium Normal 3.5-5.1 [facility] Comment on above: Result Comment: TERELL ENT LEFT, WILL BE BACK MONDAY MORNING FOR LABS. Performed By: #### L 500.4050, L100.0100, L503.6030 ####[facility] [address] [place], [address] T BILI Normal 0.20-1.00 [facility] Comment on above: Result Comment: TERELL ENT LEFT, WILL BE BACK MONDAY MORNING FOR LABS. Performed By: #### L 500.4050, L100.0100, L503.6030 ####[facility] [address] [place], [address] T PROT Normal 6.4-8.2 [facility] Comment on above: Result Comment: TERELL ENT LEFT, WILL BE BACK MONDAY MORNING FOR LABS. Performed By: #### L 500.4050, L100.0100, L503.6030 ####[facility] [address] [place], [address] Comprehensive Metabolic Profil Normal 136-145 [facility] Comment on above: Result Comment: TERELL ENT LEFT, WILL BE BACK MONDAY MORNING FOR LABS. Performed By: #### L 500.4050, L100.0100, L503.6030 ####[facility] [address] [place], [address] Iron+Iron Binding Capacityon 2024 IRON Normal 50-170 [facility] Comment on above: Result Comment: TERELL ENT LEFT, WILL BE BACK MONDAY MORNING FOR LABS. Performed By: #### L 500.4050, L100.0100, L503.6030 ####[facility] [address] [place], [address] IRON SATURATION Normal 15.0-55.0 [facility] Comment on above: Result Comment: TERELL ENT LEFT, WILL BE BACK MONDAY MORNING FOR LABS. Performed By: #### L 500.4050, L100.0100, L503.6030 ####[facility] [address] [place], [address] TIBC Normal 250-450 [facility] Comment on above: Result Comment: TERELL ENT LEFT, WILL BE BACK MONDAY MORNING FOR LABS. Performed By: #### L 500.4050, L100.0100, L503.6030 ####[facility] [address] [place], [address] Basic metabolic 2000 panelon 01-08-2024 Anion gap [Moles/Vol] 12 mmol/L Normal 8-15 [facility] Comment on above: Order Comment: Speci men Type: BLOOD SPECIMENOrdering Facility: [facility] Address: [address] [place] [address] Performed By: #### 1 9123-9, 2777-1, 60246-3 ####EMMANUEL LABORATORYCLIA [id number] [place] [id number] [place] Calcium [Mass/Vol] 8.1 mg/dL Low 8.5-10.2 [facility] Comment on above: Order Comment: Speci men Type: BLOOD SPECIMENOrdering Facility: [facility] Address: [address] [place] [address] Performed By: #### 1 9123-9, 2777-1, 47695-7 ####EMMANUEL LABORATORYCLIA [id number] [place] [id number] [place] Chloride [Moles/Vol] 98 mmol/L Normal 98-107 [facility] Comment on above: Order Comment: Speci men Type: BLOOD SPECIMENOrdering Facility: [facility] Address: [address] [place] [address] Performed By: #### 1 9123-9, 2777-, 94931-7 ####WOOD LABORATORYCLIA [id number] [place] [address] [place] CO2 [Moles/Vol] 27 mmol/L Normal 22-30 [facility] Comment on above: Order Comment: Speckhai baugh Type: BLOOD SPECIMENOrdering Facility: [facility] Address: [address] [place] [address] Performed By: #### 1 9123-9, 27709-24, 43901-5 ####WOOD LABORATORYCLIA [id number] [place] [id number] [place] Creatinine [Mass/Vol] 0.41 mg/dL Low 0.58-0.96 [facility] Comment on above: Order Comment: Abdouli men Type: BLOOD SPECIMENOrdering Facility: [facility] Address: [address] [place] [address] Performed By: #### 1 9123-9, 27709-24, ####WOOD LABORATORYCLIA [id number] [place] [address] [place] [facility] Creatinine and Glomerular filtration rate.predicted panel (S/P/Bld) 110 mL/min/1.73m??? Normal >=60 [facility] Comment on above: Order Comment: Umesh baugh Type: BLOOD SPECIMENOrdering Facility: [facility] Address: [address] [place] [address] Result Comment: Sana mated Glomerular Filtration Rate [...] GFR. Performed By: #### 1 9123-9, 2777, 33679-3 ####WOOD LABORATORYCLIA [id number] [place] [address] [place] Glucose [Mass/Vol] 96 mg/dL Normal 74-99 [facility] Comment on above: Order Comment: Speci men Type: BLOOD SPECIMENOrdering Facility: [facility] Address: [address] [place] [address] Result Comment: The [place] Diabetes Association (ADA) provides guidance for cutoff [...] Standards of Medical Care in Diabetes 2016, [place] [employer]. Diabetes Care. 2016.39(Suppl 1). Performed By: #### 1 9123-9, 2777-, 66926-2 ####EMMANUEL LABORATORYCLIA [id number] [place] [id number] [place] Potassium [Moles/Vol] 3.6 mmol/L Low 3.7-5.1 [facility] Comment on above: Order Comment: Umesh baugh Type: BLOOD SPECIMENOrdering Facility: [facility] Address: [address] [place] [address] Performed By: #### 1 9123-9, 2777-, 71600-1 ####EMMANUEL LABORATORYCLIA [id number] [place] [id number] [place] Sodium [Moles/Vol] 137 mmol/L Normal 136-144 [facility] Comment on above: Order Comment: Abdouli men Type: BLOOD SPECIMENOrdering Facility: [facility] Address: [address] [place] [address] Performed By: #### 1 9123-9, 2777, 84301-2 ####[facility] LABORATORYCLIA [id number] [place] [id number] [place] Urea nitrogen [Mass/Vol] 5 mg/dL Low 7-21 [facility] Comment on above: Order Comment: Speci men Type: BLOOD SPECIMENOrdering Facility: [facility] Address: [address] [place] [address] Performed By: #### 1 9123-9, 2777-1, 64569-1 ####[facility] LABORATORYCLIA [id number] [place] [id number] [facility] [place] CASE MANAGEMon 01-08-2024 CASE MANAGEM Normal [facility] CBC panel Auto (Bld)on 01-07 Erythrocyte distribution width (RBC) [Ratio] 15.0 % Normal 11.5-15.0 [facility] Comment on above: Order Comment: Speci men Type: BLOOD SPECIMENOrdering Facility: [facility] Address: [address] [place] [address] Performed By: #### 5 8410-2 ####[facility] LABORATORYCLIA [id number] [address] [place] Hematocrit (Bld) [Volume fraction] 29.9 % Low 36.0-46.0 [facility] Comment on above: Order Comment: Speci men Type: BLOOD SPECIMENOrdering Facility: [facility] Address: [address] [place] [address] Performed By: #### 5 8410-2 ####[facility] LABORATORYCLIA [id number] [place] [id number] [place] Hemoglobin (Bld) [Mass/Vol] 9.6 g/dL Low 11.5-15.5 [facility] Comment on above: Order Comment: Speci men Type: BLOOD SPECIMENOrdering Facility: [facility] Address: [address] [place] [address] Performed By: #### 5 8410-2 ####[facility] LABORATORYCLIA [id number] [place] [id number] [place] MCH (RBC) [Entitic mass] 28.0 pg Normal 26.0-34.0 [facility] Comment on above: Order Comment: Speci men Type: BLOOD SPECIMENOrdering Facility: [facility] Address: [address] [place] [address] Performed By: #### 5 8410-2 ####[facility] LABORATORYCLIA [id number] [place] [address] [place] MCHC (RBC) [Mass/Vol] 32.1 g/dL Normal 30.5-36.0 [facility] Comment on above: Order Comment: Speci men Type: BLOOD SPECIMENOrdering Facility: [facility] Address: [address] [place] [address] Performed By: #### 5 8410-2 ####[facility] LABORATORYCLIA [id number] [place] [address] [place] MCV (RBC) [Entitic vol] 87.2 fL Normal 80.0-100.0 [facility] Comment on above: Order Comment: Speci men Type: BLOOD SPECIMENOrdering Facility: [facility] Address: [address] [place] [address] Performed By: #### 5 8410-2 ####[facility] LABORATORYCLIA [id number] [place] [address] [place] Nucleated RBC (Bld) [#/Vol] 10*3/uL Normal <0.01 [facility] Comment on above: Order Comment: Speci men Type: BLOOD SPECIMENOrdering Facility: [facility] Address: [address] [place] [address] Performed By: #### 5 8410-2 ####EMMAN[facility]EL LABORATORYCLIA [id number] [place] [address] [place] Platelet mean volume (Bld) [Entitic vol] 9.1 fL Normal 9.0-12.7 [facility] Comment on above: Order Comment: Speci men Type: BLOOD SPECIMENOrdering Facility: [facility] Address: [address] [place] [address] Performed By: #### 5 8410-2 ####[facility] LABORATORYCLIA [id number] [place] [address] [place] Platelets (Bld) [#/Vol] 365 10*3/uL Normal 150-400 [facility] Comment on above: Order Comment: Speci men Type: BLOOD SPECIMENOrdering Facility: [facility] Address: [address] [place] [address] Performed By: #### 5 8410-2 ####WO[facility] LABORATORYCLIA [id number] [place] [id number] [place] RBC (Bld) [#/Vol] 3.43 10*6/uL Low 3.90-5.20 [facility] Comment on above: Order Comment: Speci men Type: BLOOD SPECIMENOrdering Facility: [facility] Address: [address] [place] [address] Performed By: #### 5 8410-2 ####WO[facility] LABORATORYCLIA [id number] [place] [id number] [place] WBC (Bld) [#/Vol] 7.11 10*3/uL Normal 3.70-11.00 [facility] Comment on above: Order Comment: Speci men Type: BLOOD SPECIMENOrdering Facility: [facility] Address: [address] [place] [address] Performed By: #### 5 8410-2 ####WOOD LABORATORYCLIA [id number] [place] [id number] [place] CNDSon 01-08-2024 [facility] Magnesium [facility]-ncon 01-07 Magnesium [Mass/Vol] 2.1 mg/dL Normal 1.7-2.3 [facility] Comment on above: Order Comment: Speci men Type: BLOOD SPECIMENOrdering Facility: [facility] Address: [address] [place] [address] Performed By: #### 1 9123-9, 2777-1, 50870-0 ####WOOD LABORATORYCLIA [id number] [place] [id number] [place] NURSING PROGon 01-08-2024 NURSING PROG Normal [facility] NURSING PROG Normal [facility] Phosphate SerPl-mCncon 01-07 Phosphate [Mass/Vol] 2.7 mg/dL Normal 2.7-4.8 [facility] Comment on above: Order Comment: Speci men Type: BLOOD SPECIMENOrdering Facility: [facility] Address: [address] [place], [place] [address], [place] [address] Performed By: #### 1 9123-9, 2777-1, 31333-0 ####EMMANUEL LABORATORYCLIA [id number] [place] [address] [place] Basic metabolic 2000 panelon 01-07-2024 Anion gap [Moles/Vol] 13 mmol/L Normal 8-15 [facility] Comment on above: Order Comment: Speci men Type: BLOOD SPECIMENOrdering Facility: [facility] Address: [address] [place] [address] Performed By: #### 1 9123-9, 2777-1, 83318-2 ####EMMANUEL LABORATORYCLIA [id number] [place] [id number] [place] Calcium [Mass/Vol] 8.2 mg/dL Low 8.5-10.2 [facility] Comment on above: Order Comment: Speci men Type: BLOOD SPECIMENOrdering Facility: [facility] Address: [facility] [place] [address] Performed By: #### 1 9123-9, 27709-24, 90983-8 ####EMMAN[facility]EL LABORATORYCLIA [id number] [place] [id number] [place] Chloride [Moles/Vol] 97 mmol/L Low 98-107 [facility] Comment on above: Order Comment: Speci men Type: BLOOD SPECIMENOrdering Facility: [facility] Address: [address] [place] [address] Performed By: #### 1 9123-9, 27709-24, 85008-0 ####EMMAN[facility]EL LABORATORYCLIA [id number] [place] [id number] [place] CO2 [Moles/Vol] 29 mmol/L Normal 22-30 [facility] Comment on above: Order Comment: Speci men Type: BLOOD SPECIMENOrdering Facility: [facility] Address: [address] [place] [address] Performed By: #### 1 9123-9, 2777-1, 40585-2 ####EM[facility]EL LABORATORYCLIA [id number] [place] [address] [place] Creatinine [Mass/Vol] 0.53 mg/dL Low 0.58-0.96 [facility] Comment on above: Order Comment: Umesh baugh Type: BLOOD SPECIMENOrdering Facility: [facility] Address: [address] [place] [address] Performed By: #### 1 9123-9, 2777-1, 01232-6 ####WOOD LABORATORYCLIA [id number] [place] [address] [facility] Creatinine and Glomerular filtration rate.predicted panel (S/P/Bld) 103 mL/min/1.73m??? Normal >=60 [facility] Comment on above: Order Comment: Umesh baugh Type: BLOOD SPECIMENOrdering Facility: [facility] Address: [address] [place] [address] Result Comment: Sana mated Glomerular Filtration Rate [...] GFR. Performed By: #### 1 9123-9, 2777-1, 26918-0 ####WOOD LABORATORYCLIA [id number] [place] [id number] [place] Glucose [Mass/Vol] 66 mg/dL Low 74-99 [facility] Comment on above: Order Comment: Umesh baugh Type: BLOOD SPECIMENOrdering Facility: [facility] Address: [address] [place] [address] Result Comment: The [place] [employer] (ADA) provides guidance for cutoff [...] Standards of Medical Care in Diabetes 2016, [place] [employer]. Diabetes Care. 2016.39(Suppl 1). Performed By: #### 1 9123-9, 2777-1, 52164-0 ####[facility] LABORATORYCLIA [id number] [place] [address] [place] Potassium [Moles/Vol] 3.6 mmol/L Low 3.7-5.1 [facility] Comment on above: Order Comment: Abdouli lupis Type: BLOOD SPECIMENOrdering Facility: [facility] Address: [address] [place] [address] Performed By: #### 1 9123-9, 277-, 09112-3 ####[facility] LABORATORYCLIA [id number] [place] [id number] [place] Sodium [Moles/Vol] 139 mmol/L Normal 136-144 [facility] Comment on above: Order Comment: Speci men Type: BLOOD SPECIMENOrdering Facility: [facility] Address: [address] [place] [address] Performed By: #### 1 9123-9, 27709-24, 49248-3 ####[facility] LABORATORYCLIA [id number] [place] [id number] [place] Urea nitrogen [Mass/Vol] 6 mg/dL Low 7-21 [facility] Comment on above: Order Comment: Speci men Type: BLOOD SPECIMENOrdering Facility: [facility] Address: [address] [place] [address] Performed By: #### 1 9123-9, 27709-24, 14374-4 ####WO[facility] LABORATORYCLIA [id number] [place] [id number] [place] CBC panel Auto (Bld)on 01-06 Erythrocyte distribution width (RBC) [Ratio] 14.8 % Normal 11.5-15.0 [facility] Comment on above: Order Comment: Speci men Type: BLOOD SPECIMENOrdering Facility: [facility] Address: [address] [place] [address] Performed By: #### 5 8410-2 ####[facility] LABORATORYCLIA [id number] [place] [address] [place] Hematocrit (Bld) [Volume fraction] 25.5 % Low 36.0-46.0 [facility] Comment on above: Order Comment: Speci men Type: BLOOD SPECIMENOrdering Facility: [facility] Address: [address] [place] [address] Performed By: #### 5 8410-2 ####[facility] LABORATORYCLIA [id number] [place] [address] [place] Hemoglobin (Bld) [Mass/Vol] 8.3 g/dL Low 11.5-15.5 [facility] Comment on above: Order Comment: Speci men Type: BLOOD SPECIMENOrdering Facility: [facility] Address: [address] [place] [address] Performed By: #### 5 8410-2 ####[facility] LABORATORYCLIA [id number] [place] [address] [place] MCH (RBC) [Entitic mass] 27.9 pg Normal 26.0-34.0 [facility] Comment on above: Order Comment: Speci men Type: BLOOD SPECIMENOrdering Facility: [facility] Address: [address] [place] [address] Performed By: #### 5 8410-2 ####[facility] LABORATORYCLIA [id number] [place] [id number] [place] MCHC (RBC) [Mass/Vol] 32.5 g/dL Normal 30.5-36.0 [facility] Comment on above: Order Comment: Speci men Type: BLOOD SPECIMENOrdering Facility: [facility] Address: [address] [place] [address] Performed By: #### 5 8410-2 ####[facility] LABORATORYCLIA [id number] [address] [place] MCV (RBC) [Entitic vol] 85.6 fL Normal 80.0-100.0 [facility] Comment on above: Order Comment: Speci men Type: BLOOD SPECIMENOrdering Facility: [facility] Address: [address] [place] [address] Performed By: #### 5 8410-2 ####[facility] LABORATORYCLIA [id number] [place] [id number] [place] Nucleated RBC (Bld) [#/Vol] 10*3/uL Normal <0.01 [facility] Comment on above: Order Comment: Speci men Type: BLOOD SPECIMENOrdering Facility: [facility] Address: [address] [place] [address] Performed By: #### 5 8410-2 ####WO[facility] LABORATORYCLIA [id number] [place] [address] [place] Platelet mean volume (Bld) [Entitic vol] 9.0 fL Normal 9.0-12.7 [facility] Comment on above: Order Comment: Speci men Type: BLOOD SPECIMENOrdering Facility: [facility] Address: [address] [place] [address] Performed By: #### 5 8410-2 ####WO[facility] LABORATORYCLIA [id number] [place] [address] [place] Platelets (Bld) [#/Vol] 306 10*3/uL Normal 150-400 [facility] Comment on above: Order Comment: Speci men Type: BLOOD SPECIMENOrdering Facility: [facility] Address: [address] [place] [address] Performed By: #### 5 8410-2 ####WO[facility] LABORATORYCLIA [id number] [place] [id number] [place] RBC (Bld) [#/Vol] 2.98 10*6/uL Low 3.90-5.20 [facility] Comment on above: Order Comment: Speci men Type: BLOOD SPECIMENOrdering Facility: [facility] Address: [address] [place] [address] Performed By: #### 5 8410-2 ####WO[facility] LABORATORYCLIA [id number] [place] [address] [place] WBC (Bld) [#/Vol] 8.02 10*3/uL Normal 3.70-11.00 [facility] Comment on above: Order Comment: Speci men Type: BLOOD SPECIMENOrdering Facility: [facility] Address: [address] [place] [address] Performed By: #### 5 8410-2 ####EMMAN[facility]EL LABORATORYCLIA [id number] [place] [id number] [place] Magnesium SerPl-mCncon 01-06 Magnesium [Mass/Vol] 1.9 mg/dL Normal 1.7-2.3 [facility] Comment on above: Order Comment: Speci men Type: BLOOD SPECIMENOrdering Facility: [facility] Address: [address] [place] [address] Performed By: #### 1 9123-9, 2777-1, 67559-9 ####EMMANUEL LABORATORYCLIA [id number] [place] [id number] [place] Phosphate SerPl-mCncon 01-06 Phosphate [Mass/Vol] 4.1 mg/dL Normal 2.7-4.8 [facility] Comment on above: Order Comment: Speci men Type: BLOOD SPECIMENOrdering Facility: [facility] Address: [address] [place] [address] Performed By: #### 1 9123-9, 2777-1, 56597-9 ####EMMANUEL LABORATORYCLIA [id number] [place] [id number] [place] Basic metabolic 2000 panelon 01-06-2024 Anion gap [Moles/Vol] 8 mmol/L Normal 8-15 [facility] Comment on above: Order Comment: Speci men Type: BLOOD SPECIMENOrdering Facility: [facility] Address: [address] [place] [address] Performed By: #### 1 9123-9, 2777-1, 50460-8 ####EMMANUEL LABORATORYCLIA [id number] [place] [id number] [place] Calcium [Mass/Vol] 8.3 mg/dL Low 8.5-10.2 [facility] Comment on above: Order Comment: Speci men Type: BLOOD SPECIMENOrdering Facility: [facility] Address: [address] [place] [address] Performed By: #### 1 9123-9, 2777, 51995-4 ####WOOD LABORATORYCLIA [id number] [place] [id number] [place] Chloride [Moles/Vol] 102 mmol/L Normal 98-107 [facility] Comment on above: Order Comment: Speci men Type: BLOOD SPECIMENOrdering Facility: [facility] Address: [address] [place] [address] Performed By: #### 1 9123-9, 27709-24, ####WOOD LABORATORYCLIA [id number] [place] [address] [place] CO2 [Moles/Vol] 31 mmol/L High 22-30 [facility] Comment on above: Order Comment: Speci men Type: BLOOD SPECIMENOrdering Facility: [facility] Address: [address] [place] [address] Performed By: #### 1 9123-9, 27709-24, ####WOOD LABORATORYCLIA [id number] [place] [address] [place] Creatinine [Mass/Vol] 0.57 mg/dL Low 0.58-0.96 [facility] Comment on above: Order Comment: Speci men Type: BLOOD SPECIMENOrdering Facility: [facility] Address: [address] [place] [address] Performed By: #### 1 9123-9, 27709-24, 91480-8 ####WOOD LABORATORYCLIA [id number] [place] [id number] [place] Creatinine and Glomerular filtration rate.predicted panel (S/P/Bld) 102 mL/min/1.73m??? Normal >=60 [facility] Comment on above: Order Comment: Speci men Type: BLOOD SPECIMENOrdering Facility: [facility] Address: [address] [place] [address] Result Comment: Sana mated Glomerular Filtration Rate [...] GFR. Performed By: #### 1 9123-9, 2777-, 24489-9 ####EMMANUEL LABORATORYCLIA [id number] [place] [id number] [place] Glucose [Mass/Vol] 80 mg/dL Normal 74-99 [facility] Comment on above: Order Comment: Umesh baugh Type: BLOOD SPECIMENOrdering Facility: [facility] Address: [address] [place] [address] Result Comment: The [place] [employer] (ADA) provides guidance for cutoff [...] Standards of Medical Care in Diabetes 2016, [place] [employer]. Diabetes Care. 2016.39(Suppl 1). Performed By: #### 1 9123-9, 2777, 97085-6 ####EMMANUEL LABORATORYCLIA [id number] [place] [id number] [place] Potassium [Moles/Vol] 4.6 mmol/L Normal 3.7-5.1 [facility] Comment on above: Order Comment: Umesh baugh Type: BLOOD SPECIMENOrdering Facility: [facility] Address: [address] [place] [address] Performed By: #### 1 9123-9, 2777, 54166-5 ####EMMANUEL LABORATORYCLIA [id number] [place] [id number] [place] Sodium [Moles/Vol] 141 mmol/L Normal 136-144 [facility] Comment on above: Order Comment: Speci men Type: BLOOD SPECIMENOrdering Facility: [facility] Address: [address] [place] [address] Performed By: #### 1 9123-9, 2777-1, 81622-8 ####[facility] LABORATORYCLIA [id number] [place] [address] [place] Urea nitrogen [Mass/Vol] 8 mg/dL Normal 7-21 [facility] Comment on above: Order Comment: Speci men Type: BLOOD SPECIMENOrdering Facility: [facility] Address: [address] [place] [address] Performed By: #### 1 9123-9, 2777-, 23694-8 ####EMMANUEL LABORATORYCLIA [id number] [place] [address] [place] CBC panel Auto (Bld)on 01-05 Erythrocyte distribution width (RBC) [Ratio] 15.2 % High 11.5-15.0 [facility] Comment on above: Order Comment: Speci men Type: BLOOD SPECIMENOrdering Facility: [facility] Address: [address] [place] [address] Performed By: #### 5 8410-2 ####[facility] LABORATORYCLIA [id number] [place] [address] [place] Hematocrit (Bld) [Volume fraction] 24.0 % Low 36.0-46.0 [facility] Comment on above: Order Comment: Speci men Type: BLOOD SPECIMENOrdering Facility: [facility] Address: [address] [place] [address] Performed By: #### 5 8410-2 ####[facility] LABORATORYCLIA [id number] [place] [address] [place] Hemoglobin (Bld) [Mass/Vol] 7.7 g/dL Low 11.5-15.5 [facility] Comment on above: Order Comment: Speci men Type: BLOOD SPECIMENOrdering Facility: [facility] Address: [address] [place] [address] Performed By: #### 5 8410-2 ####EMMANUEL LABORATORYCLIA [id number] [address] [place] [facility] MCH (RBC) [Entitic mass] 28.0 pg Normal 26.0-34.0 [facility] Comment on above: Order Comment: Speci men Type: BLOOD SPECIMENOrdering Facility: [facility] Address: [address] [place] [address] Performed By: #### 5 8410-2 ####EMMANEUL LABORATORYCLIA [id number] [address] [place] MCHC (RBC) [Mass/Vol] 32.1 g/dL Normal 30.5-36.0 [facility] Comment on above: Order Comment: Speci men Type: BLOOD SPECIMENOrdering Facility: [facility] Address: [address] [place] [address] Performed By: #### 5 8410-2 ####[facility] LABORATORYCLIA [id number] [address] [place] MCV (RBC) [Entitic vol] 87.3 fL Normal 80.0-100.0 [facility] Comment on above: Order Comment: Speci men Type: BLOOD SPECIMENOrdering Facility: [facility] Address: [address] [place] [address] Performed By: #### 5 8410-2 ####EMMANUEL LABORATORYCLIA [id number] [address] [place] Nucleated RBC (Bld) [#/Vol] 10*3/uL Normal <0.01 [facility] Comment on above: Order Comment: Speci men Type: BLOOD SPECIMENOrdering Facility: [facility] Address: [address] [place] [address] Performed By: #### 5 8410-2 ####EMMANUEL LABORATORYCLIA [id number] [address] [place] Platelet mean volume (Bld) [Entitic vol] 9.1 fL Normal 9.0-12.7 [facility] Comment on above: Order Comment: Speci men Type: BLOOD SPECIMENOrdering Facility: [facility] Address: [address] [place] [address] Performed By: #### 5 8410-2 ####WOOD LABORATORYCLIA [id number] [place] [id number] [place] Platelets (Bld) [#/Vol] 265 10*3/uL Normal 150-400 [facility] Comment on above: Order Comment: Speci men Type: BLOOD SPECIMENOrdering Facility: [facility] Address: [address] [place] [address] Performed By: #### 5 8410-2 ####[facility] LABORATORYCLIA [id number] [place] [address] [place] RBC (Bld) [#/Vol] 2.75 10*6/uL Low 3.90-5.20 [facility] Comment on above: Order Comment: Speci men Type: BLOOD SPECIMENOrdering Facility: [facility] Address: [address] [place] [address] Performed By: #### 5 8410-2 ####WOOD LABORATORYCLIA [id number] [place] [id number] [place] WBC (Bld) [#/Vol] 9.18 10*3/uL Normal 3.70-11.00 [facility] Comment on above: Order Comment: Speci men Type: BLOOD SPECIMENOrdering Facility: [facility] Address: [address] [place] [address] Performed By: #### 5 8410-2 ####WOOD LABORATORYCLIA [id number] [place] [id number] [place] Magnesium SerPl-mCncon 01-05 Magnesium [Mass/Vol] 1.6 mg/dL Low 1.7-2.3 [facility] Comment on above: Order Comment: Speci men Type: BLOOD SPECIMENOrdering Facility: [facility] Address: [address] [place] [address] Performed By: #### 1 9123-9, 2777-1, 08247-5 ####EMMANUEL LABORATORYCLIA [id number] [place] [id number] [place] Phosphate SerPl-mCncon 01-05 Phosphate [Mass/Vol] 4.3 mg/dL Normal 2.7-4.8 [facility] Comment on above: Order Comment: Speci men Type: BLOOD SPECIMENOrdering Facility: [facility] Address: [address] [place] [address] Performed By: #### 1 9123-9, 2777-1, 86329-1 ####EMMANUEL LABORATORYCLIA [id number] [place] [id number] [place] Basic metabolic 2000 panelon 01-05-2024 Anion gap [Moles/Vol] 9 mmol/L Normal 8-15 [facility] Comment on above: Order Comment: Speci men Type: BLOOD SPECIMENOrdering Facility: [facility] Address: [facility] [place] [address] Performed By: #### 2 4321-2, 2776-03, ####EMMANUEL LABORATORYCLIA [id number] [place] [id number] [place] Calcium [Mass/Vol] 8.6 mg/dL Normal 8.5-10.2 [facility] Comment on above: Order Comment: Speci men Type: BLOOD SPECIMENOrdering Facility: [facility] Address: [address] [place] [address] Performed By: #### 2 4321-2, 2776-03, ####EMMANUEL LABORATORYCLIA [id number] [place] [address] [place] Chloride [Moles/Vol] 100 mmol/L Normal 98-107 [facility] Comment on above: Order Comment: Speci men Type: BLOOD SPECIMENOrdering Facility: [facility] Address: [address] [place] [address] Performed By: #### 2 4321-2, 2776-, ####EMMANUEL LABORATORYCLIA [id number] [place] [address] [place] CO2 [Moles/Vol] 31 mmol/L High 22-30 [facility] Comment on above: Order Comment: Speci lupis Type: BLOOD SPECIMENOrdering Facility: [facility] Address: [address] [place] [address] Performed By: #### 2 4321-2, 2777-, ####WOOD LABORATORYCLIA [id number] [place] [id number] [place] Creatinine [Mass/Vol] 0.61 mg/dL Normal 0.58-0.96 [facility] Comment on above: Order Comment: Speci men Type: BLOOD SPECIMENOrdering Facility: [facility] Address: [address] [place] [address] Performed By: #### 2 4321-2, 2777, ####WOOD LABORATORYCLIA [id number] [address] Creatinine and Glomerular filtration rate.predicted panel (S/P/Bld) 100 mL/min/1.73m??? Normal >=60 [facility] Comment on above: Order Comment: Umesh baugh Type: BLOOD SPECIMENOrdering Facility: [facility] Address: [address] [place] [address] Result Comment: Sana mated Glomerular Filtration Rate [...] actual GFR. Performed By: #### 2 4321-2, 2777, ####WOOD LABORATORYCLIA [id number] [place] [id number] [place] Glucose [Mass/Vol] 84 mg/dL Normal 74-99 [facility] Comment on above: Order Comment: Speci men Type: BLOOD SPECIMENOrdering Facility: [facility] Address: [address] [place] [address] Result Comment: The [place] [employer] (ADA) provides guidance for cutoff [...] Standards of Medical Care in Diabetes 2016, [place] [employer]. Diabetes Care. 2016.39(Suppl 1). Performed By: #### 2 4321-2, 2776-03, ####EMMANUEL LABORATORYCLIA [id number] [place] [id number] [place] Potassium [Moles/Vol] 4.2 mmol/L Normal 3.7-5.1 [facility] Comment on above: Order Comment: Speci men Type: BLOOD SPECIMENOrdering Facility: [facility] Address: [address] [place] [address] Performed By: #### 2 4321-2, 2776-03, ####EMMANUEL LABORATORYCLIA [id number] [place] [id number] [place] Sodium [Moles/Vol] 140 mmol/L Normal 136-144 [facility] Comment on above: Order Comment: Speci men Type: BLOOD SPECIMENOrdering Facility: [facility] Address: [address] [place] [id number] Performed By: #### 2 4321-2, 2776-03, ####EMMANUEL LABORATORYCLIA [id number] [place] [id number] [place] Urea nitrogen [Mass/Vol] 13 mg/dL Normal 7-21 [facility] Comment on above: Order Comment: Speci men Type: BLOOD SPECIMENOrdering Facility: [facility] Address: [address] [place] [id number] Performed By: #### 2 4321-2, 2777-1, 25110-2 ####WOOD LABORATORYCLIA [id number] [place] [id number] [place] CASE MANAGEMon 01-05-2024 CASE MANAGEM Normal [facility] CBC panel Auto (Bld)on 01-04 Erythrocyte distribution width (RBC) [Ratio] 15.2 % High 11.5-15.0 [facility] Comment on above: Order Comment: Speci men Type: BLOOD SPECIMENOrdering Facility: [facility] Address: [address] [place] [address] Performed By: #### 5 8410-2 ####WOOD LABORATORYCLIA [id number] [address] STATES [facility] Hematocrit (Bld) [Volume fraction] 25.2 % Low 36.0-46.0 [facility] Comment on above: Order Comment: Speci men Type: BLOOD SPECIMENOrdering Facility: [facility] Address: [address] [place] [address] Performed By: #### 5 8410-2 ####WOOD LABORATORYCLIA [id number] [place] [address] [place] Hemoglobin (Bld) [Mass/Vol] 8.3 g/dL Low 11.5-15.5 [facility] Comment on above: Order Comment: Speci men Type: BLOOD SPECIMENOrdering Facility: [facility] Address: [address] [place] [address] Performed By: #### 5 8410-2 ####WOOD LABORATORYCLIA [id number] [place] [id number] [place] MCH (RBC) [Entitic mass] 28.1 pg Normal 26.0-34.0 [facility] Comment on above: Order Comment: Speci men Type: BLOOD SPECIMENOrdering Facility: [facility] Address: [address] [place] [address] Performed By: #### 5 8410-2 ####[facility] LABORATORYCLIA [id number] [place] [id number] [place] MCHC (RBC) [Mass/Vol] 32.9 g/dL Normal 30.5-36.0 [facility] Comment on above: Order Comment: Speci men Type: BLOOD SPECIMENOrdering Facility: [facility] Address: [address] [place] [address] Performed By: #### 5 8410-2 ####EMMANUEL LABORATORYCLIA [id number] [place] [address] [place] MCV (RBC) [Entitic vol] 85.4 fL Normal 80.0-100.0 [facility] Comment on above: Order Comment: Speci men Type: BLOOD SPECIMENOrdering Facility: [facility] Address: [address] [place] [address] Performed By: #### 5 8410-2 ####[facility] LABORATORYCLIA [id number] [place] [address] [place] Nucleated RBC (Bld) [#/Vol] 10*3/uL Normal <0.01 [facility] Comment on above: Order Comment: Speci men Type: BLOOD SPECIMENOrdering Facility: [facility] Address: [address] [place] [address] Performed By: #### 5 8410-2 ####[facility] LABORATORYCLIA [id number] [place] [address] [place] Platelet mean volume (Bld) [Entitic vol] 9.0 fL Normal 9.0-12.7 [facility] Comment on above: Order Comment: Speci men Type: BLOOD SPECIMENOrdering Facility: [facility] Address: [address] [place] [address] Performed By: #### 5 8410-2 ####[facility] LABORATORYCLIA [id number] [place] [address] [place] Platelets (Bld) [#/Vol] 264 10*3/uL Normal 150-400 [facility] Comment on above: Order Comment: Speci men Type: BLOOD SPECIMENOrdering Facility: [facility] Address: [address] [place] [address] Performed By: #### 5 8410-2 ####EMMANUEL LABORATORYCLIA [id number] [place] [address] [place] RBC (Bld) [#/Vol] 2.95 10*6/uL Low 3.90-5.20 [facility] Comment on above: Order Comment: Speci men Type: BLOOD SPECIMENOrdering Facility: [facility] Address: [address] [place] [address] Performed By: #### 5 8410-2 ####EMMANUEL LABORATORYCLIA [id number] [place] [id number] [place] WBC (Bld) [#/Vol] 10.25 10*3/uL Normal 3.70-11.00 [facility] Comment on above: Order Comment: Speci men Type: BLOOD SPECIMENOrdering Facility: [facility] Address: [address] [place] [address] Performed By: #### 5 8410-2 ####EMMANUEL LABORATORYCLIA [id number] [place] [address] [place] Magnesium SerPl-mCncon 01-04 Magnesium [Mass/Vol] 1.9 mg/dL Normal 1.7-2.3 [facility] Comment on above: Order Comment: Speci men Type: BLOOD SPECIMENOrdering Facility: [facility] Address: [address] [place] [address] Performed By: #### 2 4321-2, 2777-1, ####EMMANUEL LABORATORYCLIA [id number] [place] [id number] [place] Phosphate SerPl-mCncon 01-04 Phosphate [Mass/Vol] 3.7 mg/dL Normal 2.7-4.8 [facility] Comment on above: Order Comment: Speci men Type: BLOOD SPECIMENOrdering Facility: [facility] Address: [address] [place] [address] Performed By: #### 2 4321-2, 2777-1, ####EMMANUEL LABORATORYCLIA [id number] [place] [address] [place] THERAPY NTon 01-05-2024 THERAPY NT Normal [facility] Basic metabolic 2000 panelon 01-04-2024 Anion gap [Moles/Vol] 10 mmol/L Normal 8-15 [facility] Comment on above: Order Comment: Speci men Type: BLOOD SPECIMENOrdering Facility: [facility] Address: [address] [place] [address] Performed By: #### 2 4321-2, , 2776-03 ####WOOD LABORATORYCLIA [id number] [place] [id number] [place] Calcium [Mass/Vol] 8.2 mg/dL Low 8.5-10.2 [facility] Comment on above: Order Comment: Speci men Type: BLOOD SPECIMENOrdering Facility: [facility] Address: [address] [place] [address] Performed By: #### 2 4321-2, , 2776-03 ####WOOD LABORATORYCLIA [id number] [place] [id number] [place] Chloride [Moles/Vol] 99 mmol/L Normal 98-107 [facility] Comment on above: Order Comment: Speci men Type: BLOOD SPECIMENOrdering Facility: [facility] Address: [address] [place] [address] Performed By: #### 2 4321-2, , 2776-03 ####WOOD LABORATORYCLIA [id number] [place] [id number] [place] CO2 [Moles/Vol] 27 mmol/L Normal 22-30 [facility] Comment on above: Order Comment: Speci men Type: BLOOD SPECIMENOrdering Facility: [facility] Address: [address] [place] [address] Performed By: #### 2 4321-2, , 2776-03 ####WOOD LABORATORYCLIA [id number] [place] [id number] [place] Creatinine [Mass/Vol] 0.59 mg/dL Normal 0.58-0.96 [facility] Comment on above: Order Comment: Umesh baugh Type: BLOOD SPECIMENOrdering Facility: [facility] Address: [address] [place] [address] Performed By: #### 2 4321-2, 54697-2, 2776-03 ####WOOD LABORATORYCLIA [id number] [place] [id number] [place] Creatinine and Glomerular filtration rate.predicted panel (S/P/Bld) 101 mL/min/1.73m??? Normal >=60 [facility] Comment on above: Order Comment: Umesh baugh Type: BLOOD SPECIMENOrdering Facility: [facility] Address: [address] [place] [address] Result Comment: Sana mated Glomerular Filtration Rate [...] actual GFR. Performed By: #### 2 4321-2, 59333-4, 2776-03 ####WOOD LABORATORYCLIA [id number] [place] [id number] [place] Glucose [Mass/Vol] 137 mg/dL High 74-99 [facility] Comment on above: Order Comment: Umesh lupis Type: BLOOD SPECIMENOrdering Facility: [facility] Address: [address] [place] [address] Result Comment: The [place] [employer] (ADA) provides guidance for cutoff [...] Standards of Medical Care in Diabetes 2016, [place] [employer]. Diabetes Care. 2016.39(Suppl 1). Performed By: #### 2 4321-2, 62731-9, 2776- ####[facility] LABORATORYCLIA [id number] [place] [address] [place] Potassium [Moles/Vol] 4.3 mmol/L Normal 3.7-5.1 [facility] Comment on above: Order Comment: Speci men Type: BLOOD SPECIMENOrdering Facility: [facility] Address: [address] [place] [address] Performed By: #### 2 4321-2, , 2776- ####[facility] LABORATORYCLIA [id number] [place] [id number] [place] Sodium [Moles/Vol] 136 mmol/L Normal 136-144 [facility] Comment on above: Order Comment: Speci men Type: BLOOD SPECIMENOrdering Facility: [facility] Address: [address] [place] [address] Performed By: #### 2 4321-2, , 2776-03 ####[facility] LABORATORYCLIA [id number] [place] [id number] [place] Urea nitrogen [Mass/Vol] 15 mg/dL Normal 7-21 [facility] Comment on above: Order Comment: Speci men Type: BLOOD SPECIMENOrdering Facility: [facility] Address: [address] [place], [place] [address] Performed By: #### 2 4321-2, , 2776-03 ####[facility] LABORATORYCLIA [id number] [place] [id number] [place] CASE MGT INIT ASSESon 2023 CASE MGT INIT ASSES Normal [facility] CBC panel Auto (Bld)on 01-03 Erythrocyte distribution width (RBC) [Ratio] 14.6 % Normal 11.5-15.0 [facility] Comment on above: Order Comment: Speci men Type: BLOOD SPECIMENOrdering Facility: [facility] Address: [address] [place] [address] Performed By: #### 5 8410-2 ####[facility] LABORATORYCLIA [id number] [address] Hematocrit (Bld) [Volume fraction] 25.9 % Low 36.0-46.0 [facility] Comment on above: Order Comment: Speci men Type: BLOOD SPECIMENOrdering Facility: [facility] Address: [address] [place] [address] Performed By: #### 5 8410-2 ####[facility] LABORATORYCLIA [id number] [address] [place] Hemoglobin (Bld) [Mass/Vol] 9.0 g/dL Low 11.5-15.5 [facility] Comment on above: Order Comment: Speci men Type: BLOOD SPECIMENOrdering Facility: [facility] Address: [address] [place] [address] Performed By: #### 5 8410-2 ####[facility] LABORATORYCLIA [id number] [address] STATES [facility] MCH (RBC) [Entitic mass] 28.3 pg Normal 26.0-34.0 [facility] Comment on above: Order Comment: Speci men Type: BLOOD SPECIMENOrdering Facility: [facility] Address: [address] [place] [address] Performed By: #### 5 8410-2 ####[facility] LABORATORYCLIA [id number] [address] [place] MCHC (RBC) [Mass/Vol] 34.7 g/dL Normal 30.5-36.0 [facility] Comment on above: Order Comment: Speci men Type: BLOOD SPECIMENOrdering Facility: [facility] Address: [address] [place] [address] Performed By: #### 5 8410-2 ####[facility] LABORATORYCLIA [id number] [address] MCV (RBC) [Entitic vol] 81.4 fL Normal 80.0-100.0 [facility] Comment on above: Order Comment: Speci men Type: BLOOD SPECIMENOrdering Facility: [facility] Address: [address] [place] [address] Performed By: #### 5 8410-2 ####[facility] LABORATORYCLIA [id number] [place] [id number] [place] Nucleated RBC (Bld) [#/Vol] 10*3/uL Normal <0.01 [facility] Comment on above: Order Comment: Speci men Type: BLOOD SPECIMENOrdering Facility: [facility] Address: [address] [place] [address] Performed By: #### 5 8410-2 ####[facility] LABORATORYCLIA [id number] [place] [id number] [place] Platelet mean volume (Bld) [Entitic vol] 9.5 fL Normal 9.0-12.7 [facility] Comment on above: Order Comment: Speci men Type: BLOOD SPECIMENOrdering Facility: [facility] Address: [address] [place] [address] Performed By: #### 5 8410-2 ####[facility] LABORATORYCLIA [id number] [place] [address] [place] Platelets (Bld) [#/Vol] 264 10*3/uL Normal 150-400 [facility] Comment on above: Order Comment: Speci men Type: BLOOD SPECIMENOrdering Facility: [facility] Address: [address] [place] [address] Performed By: #### 5 8410-2 ####[facility] LABORATORYCLIA [id number] [place] [id number] [place] RBC (Bld) [#/Vol] 3.18 10*6/uL Low 3.90-5.20 [facility] Comment on above: Order Comment: Speci men Type: BLOOD SPECIMENOrdering Facility: [facility] Address: [address] [place] [address] Performed By: #### 5 8410-2 ####[facility] LABORATORYCLIA [id number] [place] [id number] [place] WBC (Bld) [#/Vol] 14.42 10*3/uL High 3.70-11.00 [facility] Comment on above: Order Comment: Speci men Type: BLOOD SPECIMENOrdering Facility: [facility] Address: [address] [place] [address] Performed By: #### 5 8410-2 ####WOOD LABORATORYCLIA [id number] [place] [id number] [place] Erythrocyte distribution width (RBC) [Ratio] 13.7 % Normal 11.5-15.0 [facility] Comment on above: Order Comment: Speci men Type: BLOOD SPECIMENOrdering Facility: [facility] Address: [address] [place] [address] Performed By: #### 5 8410-2 ####WOOD LABORATORYCLIA [id number] [address] [place] Hematocrit (Bld) [Volume fraction] 22.4 % Low 36.0-46.0 [facility] Comment on above: Order Comment: Speci men Type: BLOOD SPECIMENOrdering Facility: [facility] Address: [address] [place] [address] Performed By: #### 5 8410-2 ####WOOD LABORATORYCLIA [id number] [place] [address] [place] Hemoglobin (Bld) [Mass/Vol] 7.5 g/dL Low 11.5-15.5 [facility] Comment on above: Order Comment: Speci men Type: BLOOD SPECIMENOrdering Facility: [facility] Address: [address] [place] [address] Performed By: #### 5 8410-2 ####WOOD LABORATORYCLIA [id number] [place] [address] [place] MCH (RBC) [Entitic mass] 28.8 pg Normal 26.0-34.0 [facility] Comment on above: Order Comment: Speci men Type: BLOOD SPECIMENOrdering Facility: [facility] Address: [address] [place] [address] Performed By: #### 5 8410-2 ####EMMANUEL LABORATORYCLIA [id number] [place] [address] [place] MCHC (RBC) [Mass/Vol] 33.5 g/dL Normal 30.5-36.0 [facility] Comment on above: Order Comment: Speci men Type: BLOOD SPECIMENOrdering Facility: [facility] Address: [address] [place] [address] Performed By: #### 5 8410-2 ####EMMANUEL LABORATORYCLIA [id number] [place] [address] [place] MCV (RBC) [Entitic vol] 86.2 fL Normal 80.0-100.0 [facility] Comment on above: Order Comment: Speci men Type: BLOOD SPECIMENOrdering Facility: [facility] Address: [address] [place] [address] Performed By: #### 5 8410-2 ####EMMANUEL LABORATORYCLIA [id number] [place] [address] [place] Nucleated RBC (Bld) [#/Vol] 10*3/uL Normal <0.01 [facility] Comment on above: Order Comment: Speci men Type: BLOOD SPECIMENOrdering Facility: [facility] Address: [address] [place] [address] Performed By: #### 5 8410-2 ####EMMANUEL LABORATORYCLIA [id number] [place] [address] [place] Platelet mean volume (Bld) [Entitic vol] 9.0 fL Normal 9.0-12.7 [facility] Comment on above: Order Comment: Speci men Type: BLOOD SPECIMENOrdering Facility: [facility] Address: [address] [place] [address] Performed By: #### 5 8410-2 ####[facility] LABORATORYCLIA [id number] [place] [address] [place] Platelets (Bld) [#/Vol] 312 10*3/uL Normal 150-400 [facility] Comment on above: Order Comment: Speci men Type: BLOOD SPECIMENOrdering Facility: [facility] Address: [address] [place] [address] Performed By: #### 5 8410-2 ####WOOD LABORATORYCLIA [id number] [place] [id number] [place] RBC (Bld) [#/Vol] 2.60 10*6/uL Low 3.90-5.20 [facility] Comment on above: Order Comment: Speci men Type: BLOOD SPECIMENOrdering Facility: [facility] Address: [address] [place] [address] Performed By: #### 5 8410-2 ####WOOD LABORATORYCLIA [id number] [place] [address] [place] WBC (Bld) [#/Vol] 14.35 10*3/uL High 3.70-11.00 [facility] Comment on above: Order Comment: Speci men Type: BLOOD SPECIMENOrdering Facility: [facility] Address: [address] [place] [address] Performed By: #### 5 8410-2 ####WOOD LABORATORYCLIA [id number] [address] [place] Erythrocyte distribution width (RBC) [Ratio] 13.6 % Normal 11.5-15.0 [facility] Comment on above: Order Comment: Speci men Type: BLOOD SPECIMENOrdering Facility: [facility] Address: [address] [place] [address] Performed By: #### 5 8410-2 ####WOOD LABORATORYCLIA [id number] [address] Hematocrit (Bld) [Volume fraction] 23.0 % Low 36.0-46.0 [facility] Comment on above: Order Comment: Speci men Type: BLOOD SPECIMENOrdering Facility: [facility] Address: [address] [place] [address] Performed By: #### 5 8410-2 ####WOOD LABORATORYCLIA [id number] [place] [address] [place] Hemoglobin (Bld) [Mass/Vol] 7.6 g/dL Low 11.5-15.5 [facility] Comment on above: Order Comment: Speci men Type: BLOOD SPECIMENOrdering Facility: [facility] Address: [address] [place] [address] Performed By: #### 5 8410-2 ####[facility] LABORATORYCLIA [id number] [address] MCH (RBC) [Entitic mass] 28.6 pg Normal 26.0-34.0 [facility] Comment on above: Order Comment: Speci men Type: BLOOD SPECIMENOrdering Facility: [facility] Address: [address] [place] [address] Performed By: #### 5 8410-2 ####[facility] LABORATORYCLIA [id number] [address] MCHC (RBC) [Mass/Vol] 33.0 g/dL Normal 30.5-36.0 [facility] Comment on above: Order Comment: Speci men Type: BLOOD SPECIMENOrdering Facility: [facility] Address: [address] [place] [address] Performed By: #### 5 8410-2 ####[facility] LABORATORYCLIA [id number] [address] MCV (RBC) [Entitic vol] 86.5 fL Normal 80.0-100.0 [facility] Comment on above: Order Comment: Speci men Type: BLOOD SPECIMENOrdering Facility: [facility] Address: [address] [place] [address] Performed By: #### 5 8410-2 ####[facility] LABORATORYCLIA [id number] [address] [place] Nucleated RBC (Bld) [#/Vol] 10*3/uL Normal <0.01 [facility] Comment on above: Order Comment: Speci men Type: BLOOD SPECIMENOrdering Facility: [facility] Address: [address] [place] [address] Performed By: #### 5 8410-2 ####[facility] LABORATORYCLIA [id number] [place] [address] [place] Platelet mean volume (Bld) [Entitic vol] 9.0 fL Normal 9.0-12.7 [facility] Comment on above: Order Comment: Speci men Type: BLOOD SPECIMENOrdering Facility: [facility] Address: [address] [place] [address] Performed By: #### 5 8410-2 ####WO[facility] LABORATORYCLIA [id number] [place] [id number] [place] Platelets (Bld) [#/Vol] 278 10*3/uL Normal 150-400 [facility] Comment on above: Order Comment: Speci men Type: BLOOD SPECIMENOrdering Facility: [facility] Address: [address] [place] [address] Performed By: #### 5 8410-2 ####[facility] LABORATORYCLIA [id number] [place] [address] [place] RBC (Bld) [#/Vol] 2.66 10*6/uL Low 3.90-5.20 [facility] Comment on above: Order Comment: Speci men Type: BLOOD SPECIMENOrdering Facility: [facility] Address: [address] [place] [address] Performed By: #### 5 8410-2 ####WO[facility] LABORATORYCLIA [id number] [place] [id number] [place] WBC (Bld) [#/Vol] 13.11 10*3/uL High 3.70-11.00 [facility] Comment on above: Order Comment: Speci men Type: BLOOD SPECIMENOrdering Facility: [facility] Address: [address] [place] [address] Performed By: #### 5 8410-2 ####WOOD LABORATORYCLIA [id number] [place] [id number] [place] Magnesium SerPl-mCncon 01-03 Magnesium [Mass/Vol] 1.7 mg/dL Normal 1.7-2.3 [facility] Comment on above: Order Comment: Speci men Type: BLOOD SPECIMENOrdering Facility: [facility] Address: [address] [place], [place] [address] [address] Performed By: #### 2 4321-2, 74091-4, 2777- ####WOOD LABORATORYCLIA [id number] [place] [id number] [place] Phosphate SerPl-mCncon 01-03 Phosphate [Mass/Vol] 4.6 mg/dL Normal 2.7-4.8 [facility] Comment on above: Order Comment: Speci men Type: BLOOD SPECIMENOrdering Facility: [facility] Address: [address] [place] [address] [place] [address] Performed By: #### 2 4321-2, 47313-4, 277- ####WOOD LABORATORYCLIA [id number] [place] [id number] [place] THERAPY NTon 01-04-2024 THERAPY NT Normal [facility] ANES POSTPROC EVALon 024 ANES POSTPROC EVAL Normal [facility] ANES PRE-OPon 01-03-2024 ANES PRE-OP Normal [facility] BRIEF OP NOTon 01-03-2024 BRIEF OP NOT Normal [facility] CBC panel Auto (Bld)on 01-02 Erythrocyte distribution width (RBC) [Ratio] 13.6 % Normal 11.5-15.0 [facility] Comment on above: Order Comment: Speci men Type: BLOOD SPECIMENOrdering Facility: [facility] Address: [facility] [place] [address] Performed By: #### 5 8410-2 ####[facility] LABORATORYCLIA [id number] [place] [id number] [place] Hematocrit (Bld) [Volume fraction] 29.2 % Low 36.0-46.0 [facility] Comment on above: Order Comment: Speci men Type: BLOOD SPECIMENOrdering Facility: [facility] Address: [facility] [place] [address] Performed By: #### 5 8410-2 ####[facility] LABORATORYCLIA [id number] [place] [id number] [place] Hemoglobin (Bld) [Mass/Vol] 9.6 g/dL Low 11.5-15.5 [facility] Comment on above: Order Comment: Speci men Type: BLOOD SPECIMENOrdering Facility: [facility] Address: [address] [place] [address] Performed By: #### 5 8410-2 ####[facility] LABORATORYCLIA [id number] [address] [place] MCH (RBC) [Entitic mass] 28.7 pg Normal 26.0-34.0 [facility] Comment on above: Order Comment: Speci men Type: BLOOD SPECIMENOrdering Facility: [facility] Address: [address] [place] [address] Performed By: #### 5 8410-2 ####[facility] LABORATORYCLIA [id number] [address] [place] MCHC (RBC) [Mass/Vol] 32.9 g/dL Normal 30.5-36.0 [facility] Comment on above: Order Comment: Speci men Type: BLOOD SPECIMENOrdering Facility: [facility] Address: [address] [place] [address] Performed By: #### 5 8410-2 ####[facility] LABORATORYCLIA [id number] [address] [place] MCV (RBC) [Entitic vol] 87.4 fL Normal 80.0-100.0 [facility] Comment on above: Order Comment: Speci men Type: BLOOD SPECIMENOrdering Facility: [facility] Address: [address] [place] [address] Performed By: #### 5 8410-2 ####[facility] LABORATORYCLIA [id number] [address] [place] Nucleated RBC (Bld) [#/Vol] 10*3/uL Normal <0.01 [facility] Comment on above: Order Comment: Speci men Type: BLOOD SPECIMENOrdering Facility: [facility] Address: [address] [place] [address] Performed By: #### 5 8410-2 ####[facility] LABORATORYCLIA [id number] [place] [id number] [place] Platelet mean volume (Bld) [Entitic vol] 9.1 fL Normal 9.0-12.7 [facility] Comment on above: Order Comment: Speci men Type: BLOOD SPECIMENOrdering Facility: [facility] Address: [address] [place] [address] Performed By: #### 5 8410-2 ####WOOD LABORATORYCLIA [id number] [place] [id number] [place] Platelets (Bld) [#/Vol] 436 10*3/uL High 150-400 [facility] Comment on above: Order Comment: Speci men Type: BLOOD SPECIMENOrdering Facility: [facility] Address: [address] [place] [address] Performed By: #### 5 8410-2 ####WOOD LABORATORYCLIA [id number] [place] [id number] [place] RBC (Bld) [#/Vol] 3.34 10*6/uL Low 3.90-5.20 [facility] Comment on above: Order Comment: Speci men Type: BLOOD SPECIMENOrdering Facility: [facility] Address: [address] [place] [address] Performed By: #### 5 8410-2 ####WO[facility] LABORATORYCLIA [id number] [place] [id number] [place] WBC (Bld) [#/Vol] 23.47 10*3/uL High 3.70-11.00 [facility] Comment on above: Order Comment: Speci men Type: BLOOD SPECIMENOrdering Facility: [facility] Address: [address] [place] [address] Performed By: #### 5 8410-2 ####WOOD LABORATORYCLIA [id number] [place] [id number] [facility] [place] MISMATCH REPAIR PROTEINS BY IHCon 01-03-2024 AP BIOMARKER DISCLAIMER Normal [facility] Comment on above: Order Comment: Speci men Type: TISSUE SPECIMENOrdering Facility: [facility] Address: [address] [place], [place] [address] Result Comment: Vero voss Developed Test (LDT) Disclaimer:Performance characteristics of immunohistochemical, immunofluorescent and chromogenic in-situ hybridization tests have been determined by the performing laboratory within [facility] Pathology and Laboratory Medicine Department ([facility], [facility], [facility], [facility], [facility], [facility], or [facility]) in a manner consistent with CLIA requirements. One or more of these tests have not been cleared or approved by the FDA. RT-PLM is regulated under CLIA as qualified to perform high-complexity testing. These tests are used for clinical purposes. They should not be regarded as investigational or for research. Positive and negative controls stain appropriately. Performed By: #### S ####WOOD LABORATORYCLIA [id number] [place] [address] [place]#### [id number] ####[facility] LABCLIA [id number] [place] [address] [place] AP BLOCK ID B5 Normal [facility] Comment on above: Order Comment: Speci men Type: TISSUE SPECIMENOrdering Facility: [facility] Address: [address] [place] [address] Performed By: #### S ####[facility] HOSPITALIA [id number] [place] [address] [place]#### [id number] ####[facility] LABCLIA [id number] [address] [place] BIOMARKER INTERPRETATION COMMENT AND REFERENCE RANGE Normal [facility] Comment on above: Order Comment: Speci men Type: TISSUE SPECIMENOrdering Facility: [facility] Address: [address] [place] [address] [address]: [address] expression of MMR [...] patients with metastatic carcinoma, Evy et al. ([facility] 2015;372:2139-88) reported that clinical benefit of pembrolizumab, an [...] questions about this result, please call the [facility] at [phone]. Performed By: #### S ####WOOD LABORATORYIA [id number] [place] [address] [place]#### [id number] ####[facility] LABIA [id number] [place] [address] [place] BIOMARKER [facility] Comment on above: Order Comment: Speci men Type: TISSUE SPECIMENOrdering Facility: [facility] Address: [address] [place] [address] Performed By: #### S ####WOOD LABORATORYIA [id number] [place] [address] [place]#### [id number] ####[facility] LABIA [id number] [address] STATES OF [facility] CASE NUMBER MMR [id number] [facility] Comment on above: Order Comment: Speci men Type: TISSUE SPECIMENOrdering Facility: [facility] Address: [address] [place] [address] Performed By: #### S ####WO[facility] LABORATORYCLIA [id number] [place] [address] [place]#### [id number] ####[facility] LABCLIA [id number] [place] [address] [place] FINAL PERFORMING LAB Normal [facility] Comment on above: Order Comment: Speci men Type: TISSUE SPECIMENOrdering Facility: [facility] Address: [address] [place] [address] Result Comment: Diag nostic interpretation performed at: [facility], [address] [place] [address] CLIA# [id number] Director: Marky Christian MDElectronically signed out by: RADHA VILLALPANDO MD, PhD Performed By: #### S ####[facility] HOSPITALIA [id number] [place] [address] [place]#### [id number] ####[facility] LABCLIA [id number] [place] [address] [place] FIXATIVE Formalin, 10% Neutra l Buffered Normal [facility] Comment on above: Order Comment: Speci men Type: TISSUE SPECIMENOrdering Facility: [facility] Address: [address] [place] [address] Performed By: #### S ####WOOD LABORATORYCLIA [id number] [place] [address] [place]#### [id number] ####[facility] LABCLIA [id number] [place] [address] [place] MLH1 IMMUNOHISTOCHEMICAL RESULTS Normal/Intact Nuclear Expression Normal [facility] Comment on above: Order Comment: Speci men Type: TISSUE SPECIMENOrdering Facility: [facility] Address: [address] [place] [address] Performed By: #### S ####WO[facility] LABORATORYCLIA [id number] [place] [address] [place]#### [id number] ####[facility] LABCLIA [id number] [place] [address] [place] MLH1 PROMOTER METHYLATION ASSAY No Normal [facility] Comment on above: Order Comment: Speci men Type: TISSUE SPECIMENOrdering Facility: [facility] Address: [address] [place] [address] Performed By: #### S ####WOOD LABORATORYCLIA [id number] [place] [address] [place]#### [id number] ####[facility] LABCLIA [id number] [place] [address] [place] MMR INTERPRETATION Proficient (Microsat ellite Stable) Normal [facility] Comment on above: Order Comment: Speci men Type: TISSUE SPECIMENOrdering Facility: [facility] Address: [address] [place] [address] Performed By: #### S ####WO[facility] LABORATORYCLIA [id number] [place] [address] [place]#### [id number] ####[facility] LABCLIA [id number] [place] [address] [place] MSH2 IMMUNOHISTOCHEMICAL RESULTS Normal/Intact Nuclear Expression Normal [facility] Comment on above: Order Comment: Speci men Type: TISSUE SPECIMENOrdering Facility: [facility] Address: [address] [place] [address] Performed By: #### S ####WOOD LABORATORYCLIA [id number] [place] [id number] [place]#### [id number] ####[facility] LABCLIA [id number] [place] [address] [place] MSH6 IMMUNOHISTOCHEMICAL RESULTS Normal/Intact Nuclear Expression Normal [facility] Comment on above: Order Comment: Speci men Type: TISSUE SPECIMENOrdering Facility: [facility] Address: [address] [place] [address] Performed By: #### S ####WOOD LABORATORYCLIA [id number] [place] [address] [place]#### [id number] ####[facility] LABCLIA [id number] [place] [address] [place] PMS2 IMMUNOHISTOCHEMICAL RESULTS Normal/Intact Nuclear Expression [facility] Comment on above: Order Comment: Speci men Type: TISSUE SPECIMENOrdering Facility: [facility] Address: [address] [place] [address] Performed By: #### S ####WOOD LABORATORYCLIA [id number] [place] [address] [place]#### [id number] ####[facility] LABCLIA [id number] [place] [address] [place] TUMOR TYPE MMR Primary Colorectal Adenocarcinoma [facility] Comment on above: Order Comment: Speci men Type: TISSUE SPECIMENOrdering Facility: [facility] Address: [address] [place] [address] Performed By: #### S ####WOOD LABORATORYCLIA [id number] [place] [address] [place]#### [id number] ####[facility] LABCLIA [id number] [place] [address] [place] NURSING PROGon 01-03-2024 NURSING PROG [facility] OPERATIVE NOon 01-03-2024 OPERATIVE NO Normal [facility] SURGICAL PATHOLOGYon 024 BLOCK FOR ADDITIONAL BIOMARKERS/MOLECULAR STUDIES [address] Comment on above: Order Comment: Speci men Type: TISSUE SPECIMENOrdering Facility: [facility] Address: [address] [place], [place] [id number] Performed By: #### S ####[facility] LABORATORYCLIA [id number] [place] [address] [place]#### [id number] ####[facility] LABCLIA [id number] [place] [address] [place] CASE REPORT Normal [facility] Comment on above: Order Comment: Speci men Type: TISSUE SPECIMENOrdering Facility: [facility] Address: [address] [place] [address] Result Comment: Surg ica Pathology Report Case: [id number] Provider: Tessa Spring MD Collected: 01/03/2024 01:42 PMOrdering Location: [facility] Received: 01/03/2024 04:12 PM Operating RoomPathologist: Jimbo [place] MDSpecimens: A) - Appendix, Appendectomy B) - Colon, Resection, ileocecectomy Performed By: #### S ####WOOD LABORATORYCLIA [id number] [address] OF [facility]#### [id number] ####[facility] LABCLIA [id number] [address] [place] CLINICAL HISTORY Normal [facility] Comment on above: Order Comment: Speci men Type: TISSUE SPECIMENOrdering Facility: [facility] Address: [address] [place] [address] Result Comment: Pre- op diagnosis:Perforated appendix [K35.32] Performed By: #### S ####WOOD LABORATORYCLIA [id number] [address] [place]#### [id number] ####[facility] LABCLIA [id number] [address] [place] DIAGNOSIS COMMENT Normal [facility] Comment on above: Order Comment: Speci men Type: TISSUE SPECIMENOrdering Facility: [facility] Address: [address] [place] [address] Result Comment: A. 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 Sana Freeman.B. Dr. Spring was notified of these findings via e-mail on 01/09/2024.Laboratory Developed Test (LDT) Disclaimer:Performance characteristics of immunohistochemical, immunofluorescent and chromogenic in-situ hybridization tests have been determined by the performing laboratory within [facility]???s [facility] Pathology and Laboratory Medicine Department ([facility], [facility], [facility], [facility], [facility], [facility], or [facility]) in a manner consistent with CLIA requirements. One or more of these tests have not been cleared or approved by the FDA. RT-PLM is regulated under CLIA as qualified to perform high-complexity testing. These tests are used for clinical purposes. They should not be regarded as investigational or for research. Positive and negative controls stain appropriately. Performed By: #### S ####WOOD LABORATORYCLIA [id number] [place] [address] [place]#### [id number] ####[facility] LABCLIA [id number] [address] FINAL DIAGNOSIS Normal [facility] Comment on above: Order Comment: Speci men Type: TISSUE SPECIMENOrdering Facility: [facility] Address: [address] [place] [address] Result Comment: A. A ppendix, excision:- Invasive [...] malignancy (0/22).JEL 01/08/2024 Performed By: #### S ####WOOD LABORATORYCLIA [id number] [place] [address] [place]#### [id number] ####[facility] LABCLIA [id number] [address] [place] FINAL PERFORMING LAB Normal [facility] Comment on above: Order Comment: Speci men Type: TISSUE SPECIMENOrdering Facility: [facility] Address: [address] [place] [address] Result Comment: Diag nostic interpretation performed at [facility], [address] [place] [address] CLIA# [id number] Director: Sana Freeman M.D. Performed By: #### S ####WOOD LABORATORYCLIA [id number] [address] [place]#### [id number] ####[facility] LABCLIA [id number] [address] [place] GROSS DESCRIPTION Normal [facility] Comment on above: Order Comment: Speci men Type: TISSUE SPECIMENOrdering Facility: [facility] Address: [address] [place] [address] Result Comment: A. A ppendix, AppendectomyReceived in [...] through the tube reveals a patent lumen. Ad Operations Coordinator sections are submitted as follows: A1 tip bisected and proximal shave margin, A2 remaining appendix, A3 fallopian tube with entire fimbriated end.WE January 04, 2024 12:14 PMGross examination performed at [facility], [address] [place], [place] [id number] remaining fallopian tube is submitted in cassettes A4-A5.WE January 08, 2024 2:07 PMGross examination performed at [facility], [address] [place], [place] [id number]. Colon, ResectionReceived in formalin designated ileocecectomy is [...] with a wall thickness of 1 cm. Ad Operations Coordinator sections are submitted as follows: B1 proximal [...] 04, 2024 11:11 AMGross examination performed at [facility], [address] [place] [address] Performed By: #### S ####WOOD LABORATORYCLIA [id number] [place] [id number] [place]#### [id number] ####[facility] LABCLIA [id number] [address] [place] SYNOPTIC REPORT Normal [facility] Comment on above: Order Comment: Speci men Type: TISSUE SPECIMENOrdering Facility: [facility] Address: [address] [place] [address] Result Comment: COLO N AND RECTUM: ResectionCOLON AND RECTUM: RESECTION - All [id number] Edition - Protocol posted: 09/13/2023SPECIMEN Procedure: IleocecectomyTUMOR [...] pN Category: pN0 Performed By: #### S ####WOOD LABORATORYCLIA [id number] [place] [id number] [place]#### [id number] ####[facility] LABCLIA [id number] [place] [address] [place] HISTORY PHYSICALon HISTORY PHYSICAL HNO ID: [id number] Author: LISBETH ALFORD PA-C Service: ? Author Type: Physician Basin Finish Operator Tig Welder Type: H&P Filed: 12/28/2023 10:49 Note Text: HISTORY AND PHYSICAL EXAMINATION SERVICE DATE: 12/28/2023 SERVICE TIME: 10:48 AM PRIMARY CARE PHYSICIAN: Mary Moss, LUZMA, PROCESS DESCRIPTION WRITER REASON FOR VISIT: Lakesha Koch is a [...] manage symptoms. Procedure scheduled on 01/03/2024 at [facility]. REVIEW OF SYSTEMS: General: No weight loss, [...] chest pain, CHF, DVT/PE, hyperlipidemia, hypertension, recent GA, murmur/valvular heart disease, open heart surgery and [...] amoxicillin-clavulanate potassium (A (more content not included)... [facility] TYPE AND SCREEN,30 DAYon ABO B [facility] Comment on above: Order Comment: Speci men Type: BLOOD SPECIMEN [facility] Address: [address] [place] [address] Performed By: #### T SCR30 #### [facility] CLIA [id number] [address] [place] Rh Nom (Bld) Positive [facility] Comment on above: Order Comment: Speci men Type: BLOOD SPECIMEN [facility] Address: [address] [place] [address] Performed By: #### T SCR30 #### [facility] CLIA [id number] [address] [place] ABO group Nom (Bld) B [facility] Blood group antibody screen Ql Negative [facility] Rh Nom (Bld) Positive [facility] REVERSE T3on 12-23-2023 T3.reverse [Mass/Vol] 13.2 ng/dL 9.0 - 27.0 ng/dL [facility] Comment on above: INTERPRETIVE INFORMA TION: Triiodothyronine, Reverse - LC-MS/MS This test was developed and its performance characteristics determined by [facility]. It has not been cleared or approved by the US Food and Drug Administration. This test was performed in a CLIA certified laboratory and is intended for clinical purposes. Performed By: [facility] [address] [place], [place] [id number] Ore Sampler: Chriss Courtney MD, PhD CLIA Number: [id number] T3.reverse [Mass/Vol]on 11-26 [facility] Free T3 [Mass/Vol]on 024 Interpretation and review of laboratory results Abnormal [facility] No Panel Informationon 12-19 Interpretation and review of laboratory results Normal [facility] T3, FREEon 12-20-2023 Free T3 [Mass/Vol] 2.2 pg/mL Low 2.3 - 4.1 pg/mL [facility] T4 FREE/FREE THYROXINEon Free T4 [Mass/Vol] 1.0 ng/dL 0.9 - 1.7 ng/dL [facility] THYROID STIMULATING HORMONEo n 12-20-2023 TSH Qn 1.540 m[IU]/L [facility] Absolute lymphocyte countOrd ered By: CHRISTIE HYLTON on 01-25-2023 Lymphocytes Auto (Unsp spec) [#/Vol] 2.00 10*3/uL 0.83-4.51 [facility] Basophil percentageOrdered B y: CHRISTIE HYLTON on 01-25-2023 Basophils/100 WBC (Bld) 0.4 % 0-1 [facility] Eosinophils/100 WBC (Bld) 0.7 % 0-5 [facility] Neutrophils (Bld) [#/Vol] 7.9 10*3/uL 2.0-7.7 [facility] Neutrophils/100 WBC (Bld) 72.0 % 47-70 [facility] WBC (Bld) [#/Vol] 11.0 10*3/uL 4.4-11.0 [facility] Blood erythrocytes count (nu mber/volume)Ordered By: CHRISTIE HYLTON on 01-25-2023 RBC (Bld) [#/Vol] 3.24 10*6/uL 4.2-5.4 [facility] Blood hemoglobin measurement (mass/volume)Ordered By: CHRISTIE HYLTON on 01-25-2023 Hemoglobin (Bld) [Mass/Vol] 9.6 g/dL 12.0-15.0 [facility] Blood lymphocytes/100 leukoc ytesOrdered By: CHRISTIE HYLTON on 01-25-2023 Lymphocytes/100 WBC (Bld) 18.2 % 19-41 [facility] Blood monocytes/100 leukocyt esOrdered By: CHRISTIE HYLTON on 01-25-2023 Monocytes/100 WBC (Bld) 8.2 % 0-10 [facility] Blood platelet mean volumeOr dered By: CHRISTIE HYLTON on 01-25-2023 Platelet mean volume (Bld) [Entitic vol] 9.5 fL 6.2-12.0 [facility] Determination of erythrocyte mean corpuscular volume (MCV)Ordered By: CHRISTIE HYLTON on 01-25-2023 MCV (RBC) [Entitic vol] 94.4 fL 81-99 [facility] Hematocrit Auto (Bld) [Volum e fraction]Ordered By: CHRISTIE HYLTON on 01-25-2023 Hematocrit (Bld) [Volume fraction] 30.6 % 37-47 [facility] Laboratory - Hematology and Cell countsOrdered By: CHRISTIE HYLTON on 01-25-2023 Erythrocyte distribution width (RBC) [Entitic vol] 44.0 fL 35.1-43.9 [facility] Erythrocyte distribution width (RBC) [Ratio] 12.6 % 11.6-14.6 [facility] Immature granulocytes/100 WBC (Bld) 0.500 % 0.0-0.9 [facility] Comment on above: IG% - Immature Granu locytes (promyelocytes, myelocytes and metamyelocytes) > 1% indicates that a LEFT SHIFT is Present. MCH (RBC) [Entitic mass] 29.6 pg 27.0-32.0 [facility] Nucleated RBC/100 WBC (Bld) [Ratio] 0 % 0-5 [facility] MCHC Auto (RBC) [Mass/Vol]Or dered By: CHRISTIE HYLTON on 01-25-2023 MCHC (RBC) [Mass/Vol] 31.4 g/dL 32-36 [facility] No Panel InformationOrdered By: CHRISTIE HYLTON on 01-25-2023 Valproic Acid (Depakene) Level 103 ug/mL 50-100 [facility] Platelets bldOrdered By: JOSETTE HYLTON on 01-25-2023 Platelets (Bld) [#/Vol] 216 10*3/uL 150-450 [facility] Basophil percentageOrdered B y: CHRISTIE HYLTON on 01-18-2023 Bilirubin [Mass/Vol] 0.20 mg/dL 0.20-1.00 [facility] Comment on above: For patients on eltr ombopag therapy, use of Dimension [place] TBIL is not recommended. Chloride [Moles/Vol] 104 mmol/L 98-107 [facility] Glucose [Mass/Vol] 115 mg/dL 74-106 [facility] Comment on above: Fasting Glucose resu lt from 100 to 125 mg/dL suggests IMPAIRED HOMEOSTASIS per A.D.A. criteria. Potassium [Moles/Vol] 4.3 mmol/L 3.5-5.1 [facility] Protein [Mass/Vol] 7.0 g/dL 6.4-8.2 [facility] Sodium [Moles/Vol] 138 mmol/L 136-145 [facility] Laboratory - Chemistry and C hemistry - challengeOrdered By: CHRISTIE HYLTON on 01-18-2023 ALP [Catalytic activity/Vol] 64 U/L 45-117 [facility] ALT [Catalytic activity/Vol] 9 U/L 13-56 [facility] CO2 [Moles/Vol] 31.0 mmol/L 21.0-32.0 [facility] Globulin (S) [Mass/Vol] 4.2 g/dL 2.2-4.2 [facility] Urea nitrogen/Creatinine [Mass ratio] 25.4 mg/mg 10-20 [facility] No Panel InformationOrdered By: CHRISTIE HYLTON on 01-18-2023 Estimated GFR (MDRD) Amer 95 mL/min >60 [facility] Comment on above: GFR Calc Estimated GFR (MDRD) Non-Af Amer 78 mL/min >60 [facility] Comment on above: Non- GFR Calc Serum or plasma albumin renetta urement (mass/volume)Ordered By: CHRISTIE HYLTON on 01-18-2023 Albumin [Mass/Vol] 2.8 g/dL 3.2-5.0 [facility] Serum or plasma albumin/glob ulin mass ratioOrdered By: CHRISTIE HYLTON on 01-18-2023 Albumin/Globulin [Mass ratio] 0.7 {ratio} 0.9-2.4 [facility] Serum or plasma calcium renetta urement (mass/volume)Ordered By: CHRISTIE HYLTON on 01-18-2023 Calcium [Mass/Vol] 8.6 mg/dL 8.5-10.1 [facility] Serum or plasma creatinine m easurement (mass/volume)Ordered By: CHRISTIE HYLTON on 01-18-2023 Creatinine [Mass/Vol] 0.79 mg/dL 0.55-1.02 [facility] Comment on above: The validity of the calculated GFR & GFRAA in patients over 70 years has not been determined. Clinical correlation is essential. Serum or plasma urea nitroge n measurement (mass/volume)Ordered By: CHRISTIE HYLTON on 01-18-2023 Urea nitrogen [Mass/Vol] 20 mg/dL 7-18 [facility] Thin prep Papanicolaou smear with manual screeningOrdered By: CHRISTIEASUNCION HYLTON on 01-18-2023 Thin prep Papanicolaou smear with manual screening 12 U/L 15-37 [facility] Thin prep Papanicolaou smear with manual screening 3 5-15 [facility] Progress Noteson 10-28-2022 [employer] Interface Message Text ----- Friday, October 28, 2022 at 3:59:08 PM ----- ----- Provider: [id number] Mathew Walters [facility] -- Clinic: [place] ----- 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 Patient has lost her Medicaid insurance since her last appointment and will not be getting new dental insurance. Since patient is paying out of pocket for all dental treatment, she would like to pursue treatment at an office closer to home since she is from [place], [place]. I did advise patient that she needs to get a flipper to replace those teeth before the bridge breaks out of her mouth, patient agrees. If patient returns the next appointment would be impression for a flipper. Normal [employer] [facility] Progress Noteson 09-23-2022 [employer] Interface Message Text ----- Friday, September 23, 2022 at 12:51:09 PM ----- ----- Provider: [id number] Mathew Keith Hygienist -- Clinic: [place] [address] ----- Pt presented with [facility] [place]. Radiograph taken today: 3 PA's X-ray. Limited exam with Dr. Becker Note:Patient shared that [facility] does not provide services for extractions or options to replace teeth. Dr. Becker reviewed process and options for replacing teeth, an appointment was made at [facility] to discuss teeth replacement options before extractions are completed. TREATMENT PLAN: 1. Prosthodontic consultation to treatment plan tooth replacement options for teeth #8, 9, 10 2. EXT teeth #8-10 (fixed bridge) Teagan Keith [facility] [place]. Limited exam for tooth replacement options for teeth #8-10 ----- Signed on Friday, September 23, 2022 at 6:31:41 PM ----- ----- Provider: [id number] Becker DDS -- Clinic: [id number] ----- Normal [facility] Absolute lymphocyte counton 10-11-2021 Lymphocytes Auto (Unsp spec) [#/Vol] 2.10 10*3/uL 0.83-4.51 [facility] Work Phone: Basophil percentageon 2021 Basophils/100 WBC (Bld) 1.5 % 0-1 [facility] Work Phone: Bilirubin [Mass/Vol] 0.20 mg/dL 0.20-1.00 [facility] Work Phone: Comment on above: For patients on eltr ombopag therapy, use of Dimension [place] TBIL is not recommended. Chloride [Moles/Vol] 107 mmol/L 98-107 [facility] Work Phone: Eosinophils/100 WBC (Bld) 10.2 % 0-5 [facility] Work Phone: Glucose [Mass/Vol] 85 mg/dL 74-106 [facility] Work Phone: Neutrophils (Bld) [#/Vol] 4.5 10*3/uL 2.0-7.7 [facility] Work Phone: Neutrophils/100 WBC (Bld) 55.6 % 47-70 [facility] Work Phone: Potassium [Moles/Vol] 4.0 mmol/L 3.5-5.1 [facility] Work Phone: Protein [Mass/Vol] 7.4 g/dL 6.4-8.2 [facility] Work Phone: Sodium [Moles/Vol] 140 mmol/L 136-145 [facility] Work Phone: WBC (Bld) [#/Vol] 8.0 10*3/uL 4.4-11.0 [facility] Work Phone: Blood erythrocytes count (nu mber/volume)on 10-11-2021 RBC (Bld) [#/Vol] 4.18 10*6/uL 4.2-5.4 [facility] Work Phone: Blood hemoglobin measurement (mass/volume)on 10-11-2021 Hemoglobin (Bld) [Mass/Vol] 12.1 g/dL 12.0-15.0 [facility] Work Phone: Blood lymphocytes/100 leukoc yteson 10-11-2021 Lymphocytes/100 WBC (Bld) 26.1 % 19-41 [facility] Work Phone: Blood monocytes/100 leukocyt eson 10-11-2021 Monocytes/100 WBC (Bld) 6.2 % 0-10 [facility] Work Phone: [phone] Blood platelet mean volumeon 10-11-2021 Platelet mean volume (Bld) [Entitic vol] 8.9 fL 6.2-12.0 [facility] Work Phone: Determination of erythrocyte mean corpuscular volume (MCV)on 10-11-2021 MCV (RBC) [Entitic vol] 89.2 fL 81-99 [facility] Work Phone: Hematocrit Auto (Bld) [Volum e fraction]on 10-11-2021 Hematocrit (Bld) [Volume fraction] 37.3 % 37-47 [facility] Work Phone: [phone] Laboratory - Chemistry and C hemistry - challengeon 10-11-2021 ALP [Catalytic activity/Vol] 104 U/L 45-117 [facility] Work Phone: [phone] ALT [Catalytic activity/Vol] 14 U/L 13-56 [facility] Work Phone: [phone] CO2 [Moles/Vol] 27.0 mmol/L 21.0-32.0 [facility] Work Phone: [phone] Globulin (S) [Mass/Vol] 4.1 g/dL 2.2-4.2 [facility] Work Phone: [phone] Urea nitrogen/Creatinine [Mass ratio] 23.9 mg/mg 10-20 [facility] Work Phone: [phone] Laboratory - Hematology and Cell countson 10-11-2021 Erythrocyte distribution width (RBC) [Entitic vol] 37.6 fL 35.1-43.9 [facility] Work Phone: [phone] Erythrocyte distribution width (RBC) [Ratio] 11.6 % 11.6-14.6 [facility] Work Phone: [phone] Immature granulocytes/100 WBC (Bld) 0.400 % 0.0-0.9 [facility] Work Phone: [phone] Comment on above: IG% - Immature Granu locytes (promyelocytes, myelocytes and metamyelocytes) > 1% indicates that a LEFT SHIFT is Present. MCH (RBC) [Entitic mass] 28.9 pg 27.0-32.0 [facility] Work Phone: [phone] Nucleated RBC/100 WBC (Bld) [Ratio] 0 % 0-5 [facility] Work Phone: [phone] MCHC Auto (RBC) [Mass/Vol]on 10-11-2021 MCHC (RBC) [Mass/Vol] 32.4 g/dL 32-36 [facility] Work Phone: [phone] Panel Informationon 10-11 Estimated GFR (MDRD) Amer 107 mL/min >60 [facility] Work Phone: Comment on above: GFR Calc Estimated GFR (MDRD) Non-Af Amer 88 mL/min >60 [facility] Work Phone: Comment on above: Non- GFR Calc Miscellaneous Test See comment [facility] Work Phone: Comment on above: TEST RESULT LIMITSVa lproic Acid (Total+Free) Valproic Acid (Depakote)(R),S 67 ug/mL 50-100 Detection Limit = 4 <4 indicates None Detected Toxicity may occur at levels of 100-500. Measurements of free unbound valproic acid may improve the assess- ment of clinical response. Free Valproic Acid (Depakote) 11.4 ug/mL 6.0-22.0 Detection Limit = 0.5 TESTING PERFORMED AT [facility]. ORIGINAL REPORT ON FILE IN LAB CONTAINS ADDITIONAL TEST SITE INFORMATION. Platelets bldon 10-11-2021 Platelets (Bld) [#/Vol] 264 10*3/uL 150-450 [facility] Work Phone: [phone] Serum or plasma albumin renetta urement (mass/volume)on 10-11-2021 Albumin [Mass/Vol] 3.3 g/dL 3.2-5.0 [facility] Work Phone: [phone] Serum or plasma albumin/glob ulin mass ratioon 10-11-2021 Albumin/Globulin [Mass ratio] 0.8 {ratio} 0.9-2.4 [facility] Work Phone: [phone] Serum or plasma calcium renetta urement (mass/volume)on 10-11-2021 Calcium [Mass/Vol] 8.8 mg/dL 8.5-10.1 [facility] Work Phone: Serum or plasma creatinine m easurement (mass/volume)on 10-11-2021 Creatinine [Mass/Vol] 0.71 mg/dL 0.55-1.02 [facility] Work Phone: Comment on above: The validity of the calculated GFR & GFRAA in patients over 70 years has not been determined. Clinical correlation is essential. Serum or plasma urea nitroge n measurement (mass/volume)on 10-11-2021 Urea nitrogen [Mass/Vol] 17 mg/dL - [facility] Work Phone: Thin prep Papanicolaou smear with manual screeningon 10-11-2021 Thin prep Papanicolaou smear with manual screening 19 U/L 15-37 [facility] Work Phone: Thin prep Papanicolaou smear with manual screening 6 5-15 [facility] Work Phone: Absolute lymphocyte counton 07-02-2021 Lymphocytes Auto (Unsp spec) [#/Vol] 2.15 10*3/uL 0.83-4.51 [facility] Work Phone: Basophil percentageon 2021 Basophils/100 WBC (Bld) 1.1 % 0-1 [facility] Work Phone: Chloride [Moles/Vol] 106 mmol/L 98-107 [facility] Work Phone: Eosinophils/100 WBC (Bld) 9.8 % 0-5 [facility] Work Phone: Glucose [Mass/Vol] 87 mg/dL 74-106 [facility] Work Phone: Neutrophils (Bld) [#/Vol] 5.4 10*3/uL 2.0-7.7 [facility] Work Phone: Neutrophils/100 WBC (Bld) 58.1 % 47-70 [facility] Work Phone: Potassium [Moles/Vol] 4.0 mmol/L 3.5-5.1 [facility] Work Phone: Sodium [Moles/Vol] 139 mmol/L 136-145 [facility] Work Phone: [phone] WBC (Bld) [#/Vol] 9.4 10*3/uL 4.4-11.0 [facility] Work Phone: [phone] Blood erythrocytes count (nu mber/volume)on 07-02-2021 RBC (Bld) [#/Vol] 3.98 10*6/uL 4.2-5.4 [facility] Work Phone: [phone] Blood hemoglobin measurement (mass/volume)on 07-02-2021 Hemoglobin (Bld) [Mass/Vol] 12.0 g/dL 12.0-15.0 [facility] Work Phone: [phone] Blood lymphocytes/100 leukoc yteson 07-02-2021 Lymphocytes/100 WBC (Bld) 23.0 % 19-41 [facility] Work Phone: [phone] Blood monocytes/100 leukocyt eson 07-02-2021 Monocytes/100 WBC (Bld) 7.6 % 0-10 [facility] Work Phone: [phone] Blood platelet mean volumeon 07-02-2021 Platelet mean volume (Bld) [Entitic vol] 9.1 fL 6.2-12.0 [facility] Work Phone: [phone] Determination of erythrocyte mean corpuscular volume (MCV)on 07-02-2021 MCV (RBC) [Entitic vol] 91.5 fL 81-99 [facility] Work Phone: [phone] Hematocrit Auto (Bld) [Volum e fraction]on 07-02-2021 Hematocrit (Bld) [Volume fraction] 36.4 % 37-47 [facility] Work Phone: [phone] Iron measurement (mass/mass) on 07-02-2021 Iron (Unsp spec) [Mass/Mass] 66 ug/dL 50-170 [facility] Work Phone: [phone] Laboratory - Chemistry and C hemistry - challengeon 07-02-2021 CO2 [Moles/Vol] 29.0 mmol/L 21.0-32.0 [facility] Work Phone: [phone] Urea nitrogen/Creatinine [Mass ratio] 27.5 mg/mg 10-20 [facility] Work Phone: [phone] Laboratory - Hematology and Cell countson 07-02-2021 Erythrocyte distribution width (RBC) [Entitic vol] 40.8 fL 35.1-43.9 [facility] Work Phone: [phone] Erythrocyte distribution width (RBC) [Ratio] 12.1 % 11.6-14.6 [facility] Work Phone: [phone] Immature granulocytes/100 WBC (Bld) 0.400 % 0.0-0.9 [facility] Work Phone: [phone] Comment on above: IG% - Immature Granu locytes (promyelocytes, myelocytes and metamyelocytes) > 1% indicates that a LEFT SHIFT is Present. MCH (RBC) [Entitic mass] 30.2 pg 27.0-32.0 [facility] Work Phone: [phone] Nucleated RBC/100 WBC (Bld) [Ratio] 0 % 0-5 [facility] Work Phone: [phone] MCHC Auto (RBC) [Mass/Vol]on 07-02-2021 MCHC (RBC) [Mass/Vol] 33.0 g/dL 32-36 [facility] Work Phone: [phone] Panel Informationon 07-02 Estimated GFR (MDRD) Amer 118 mL/min >60 [facility] Work Phone: [phone] Comment on above: GFR Calc Estimated GFR (MDRD) Non-Af Amer 97 mL/min >60 [facility] Work Phone: [phone] Comment on above: Non- GFR Calc Total Iron Binding Capacity 330 ug/dL 250-450 [facility] Work Phone: [phone] Platelets bldon 07-02-2021 Platelets (Bld) [#/Vol] 271 10*3/uL 150-450 [facility] Work Phone: [phone] Serum or plasma calcium renetta urement (mass/volume)on 07-02-2021 Calcium [Mass/Vol] 8.5 mg/dL 8.5-10.1 [facility] Work Phone: Serum or plasma creatinine m easurement (mass/volume)on 07-02-2021 Creatinine [Mass/Vol] 0.66 mg/dL 0.55-1.02 [facility] Work Phone: Comment on above: The validity of the calculated GFR & GFRAA in patients over 70 years has not been determined. Clinical correlation is essential. Serum or plasma urea nitroge n measurement (mass/volume)on 07-02-2021 Urea nitrogen [Mass/Vol] 18 mg/dL 7-18 [facility] Work Phone: Thin prep Papanicolaou smear with manual screeningon 07-02-2021 Thin prep Papanicolaou smear with manual screening 4 5-15 [facility] Work Phone: Topiramateon 01-30-2019 Topiramate 4.5 ug/mL Low 5.0-20.0 [facility] Comment on above: Result Comment: Refe rence ranges and high/low indicator flags are provided as general guidelines only. The treating physician must determine appropriate target levels/dosing based on the specific clinical situation. This test was developed and its performance characteristics determined by [facility]'s [facility] Pathology and Laboratory Medicine [place] ([facility]). It has not been cleared or approved by the FDA. [facility] is regulated under CLIA as qualified to perform high complexity testing. This test is used for clinical purposes. It should not be regarded as investigational or for research. Performing Laboratory: [facility] [address] [place] [address] Performed By: #### T OPIX #### [address] [address] Urine Drug Screenon 01-30-20 19 Urine Barbiturates Non-detected Normal Non-Detec t ed [facility] Comment on above: Performed By: #### U DRG2 #### [address] [address] Urine Benzodiazepine Non-detected Normal Non-Det ect ed [facility] Comment on above: Performed By: #### U DRG2 #### [facility] [address] [place] [address] Urine PCP Non-detected Normal Non-Detect ed [facility] Comment on above: Performed By: #### U DRG2 #### [facility] [address] [place] [address] Urine Opiate Non-detected Normal Non-Detect ed [facility] Comment on above: Performed By: #### U DRG2 #### [facility] [address] [place] [address] Urine THC see below Normal Non-Detect ed [facility] Comment on above: Result Comment: Dete cted [...] DRG2 #### [facility] [address] [place] [address] Urine Amphetamine Non-detected Normal Non-Detect ed [facility] Comment on above: Performed By: #### U DRG2 #### [facility] [address] [place] [address] Urine Cocaine Metab Non-detected Normal Non-Dete ct ed [facility] Comment on above: Performed By: #### U DRG2 #### [facility] [address] [place] [address] Activated PTTon 01-28-2019 aPTT Coag (Bld) [Time] 27.1 s Normal 23.0-32.4 [facility] Comment on above: Result Comment: Unfr actionated [...] laboratory APTT reagent in use throughout the [facility]. Performed By: #### A PTT #### [facility] [address] [place] [address] Comprehensive Panelon 2018 ALP [Catalytic activity/Vol] 85 U/L Normal 45-117 [facility] Comment on above: Performed By: #### P 14 #### [place] [address] Bilirubin [Mass/Vol] 0.2 mg/dL Normal 0.2-1.0 [facility] Comment on above: Performed By: #### P 14 #### [place] [address] Protein [Mass/Vol] 7.6 g/dL Normal 6.4-8.2 [facility] Comment on above: Performed By: #### P 14 #### [place] [address] ALT [Catalytic activity/Vol] 18 U/L Normal 12-78 [facility] Comment on above: Performed By: #### P 14 #### [place] [address] AST [Catalytic activity/Vol] 25 U/L Normal 15-37 [facility] Comment on above: Performed By: #### P 14 #### [facility] [address] [place] [address] Creatinine [Mass/Vol] 0.61 mg/dL Normal 0.51-0.95 [facility] Comment on above: Performed By: #### P 14 #### [facility] [address] [place] [address] Albumin [Mass/Vol] 3.8 g/dL Normal 3.4-5.0 [facility] Comment on above: Performed By: #### P 14 #### [address] [place], [place] [address] Anion gap [Moles/Vol] 9 mmol/L Normal 8-16 [facility] Comment on above: Performed By: #### P 14 #### [facility] [address] [place], [place] [address] CO2 [Moles/Vol] 24 mmol/L Normal 21-32 [facility] Comment on above: Performed By: #### P 14 #### [facility] [address] [place], [place] [address] Glucose [Mass/Vol] 75 mg/dL Normal 70-99 [facility] Comment on above: Performed By: #### P 14 #### [facility] [address] [place], [place] [address] Urea nitrogen [Mass/Vol] 15 mg/dL Normal 7-18 [facility] Comment on above: Performed By: #### P 14 #### [facility] [address] [place], [place] [address] Calcium [Mass/Vol] 8.5 mg/dL Normal 8.5-10.1 [facility] Comment on above: Performed By: #### P 14 #### [facility] [address] [place], [place] [address] Chloride [Moles/Vol] 109 mmol/L High 98-107 [facility] Comment on above: Performed By: #### P 14 #### [facility] [address] [place], [place] [address] Potassium [Moles/Vol] 3.0 mmol/L Low 3.5-5.1 [facility] Comment on above: Performed By: #### P 14 #### [facility] [address] [place], [place] [address] Sodium [Moles/Vol] 139 mmol/L Normal 136-145 [facility] Comment on above: Performed By: #### P 14 #### [facility] [address] [place], [place] [address] Hemogram/Diffon 01-28-2019 Abs Immature Grans 0.03 thou/cmm Normal 0.00-0.05 [facility] Comment on above: Performed By: #### C BCD1 #### [facility] [address] [place], [place] [address] Abs Neut (ANC) 6.56 thou/cmm High 1.56-6.13 [facility] Comment on above: Performed By: #### C BCD1 #### [facility] [address] [place] [address] Abs. Baso 0.08 thou/cmm Normal 0.01-0.08 [facility] Comment on above: Performed By: #### C BCD1 #### [facility] [address] [place] [address] Abs. Perry 0.59 thou/cmm Normal 0.27-0.70 [facility] Comment on above: Performed By: #### C BCD1 #### [facility] [address] [place] [address] Basophils/100 WBC (Bld) 0.9 % Normal [facility] Comment on above: Performed By: #### C BCD1 #### [facility] [address] [place] [address] Eosinophils (Bld) [#/Vol] 0.22 thou/cmm Normal 0.00-0.31 [facility] Comment on above: Performed By: #### C BCD1 #### [facility] [address] [place] [address] Eosinophils/100 WBC (Bld) 2.4 % Normal [facility] Comment on above: Performed By: #### C BCD1 #### [facility] [address] [place] [address] Erythrocyte distribution width (RBC) [Ratio] 12.2 % Normal 11.7-14.4 [facility] Comment on above: Performed By: #### C BCD1 #### [facility] [address] [place] [address] Hematocrit (Bld) [Volume fraction] 42.1 % Normal 34.1-44.9 [facility] Comment on above: Performed By: #### C BCD1 #### [place] [address] Hemoglobin (Bld) [Mass/Vol] 14.0 g/dL Normal 11.2-15.7 [facility] Comment on above: Performed By: #### C BCD1 #### [facility] [address] [place], [place] [address] Immature Grans 0.30 % Normal [facility] Comment on above: Performed By: #### C BCD1 #### [facility] [address] [place], [place] [address] Lymphocytes (Bld) [#/Vol] 1.60 thou/cmm Normal 1.18-3.74 [facility] Comment on above: Performed By: #### C BCD1 #### [facility] [address] [place], [place] [address] Lymphocytes/100 WBC (Bld) 17.6 % Normal [facility] Comment on above: Performed By: #### C BCD1 #### [place] [address] MCH (RBC) [Entitic mass] 32.4 pg High 25.6-32.2 [facility] Comment on above: Performed By: #### C BCD1 #### [facility] [address] [place] [address] MCHC (RBC) [Mass/Vol] 33.3 % Normal 31.6-34.8 [facility] Comment on above: Performed By: #### C BCD1 #### [address] [address] MCV (RBC) [Entitic vol] 97.5 fL High 79.4-94.8 [facility] Comment on above: Performed By: #### C BCD1 #### [facility] [address] [place], [place] [address] Monocytes/100 WBC (Bld) 6.5 % Normal [facility] Comment on above: Performed By: #### C BCD1 #### [facility] [address] [place], [place] [address] Platelet mean volume (Bld) [Entitic vol] 9.5 fL Normal 9.4-12.3 [facility] Comment on above: Performed By: #### C BCD1 #### [address] [place], [place] [address] Platelets (Bld) [#/Vol] 305 thou/cmm Normal 182-369 [facility] Comment on above: Performed By: #### C BCD1 #### [facility] [address] [place] [address] RBC (Bld) [#/Vol] 4.32 mil/cmm Normal 3.93-5.22 [facility] Comment on above: Performed By: #### C BCD1 #### [facility] [address] [place] [address] RDW SD 44.3 fl Normal 36.4-46.3 [facility] Comment on above: Performed By: #### C BCD1 #### [place] [address] Seg Neutrophil 72.3 % Normal [facility] Comment on above: Performed By: #### C BCD1 #### [place] [address] WBC (Bld) [#/Vol] 9.08 thou/cmm Normal 3.98-10.04 [facility] Comment on above: Performed By: #### C BCD1 #### [place] [address] MDRD GFRon 01-28-2019 GFR/1.73 sq M predicted among non-blacks MDRD (S/P/Bld) [Vol rate/Area] mL/min/{1.73_m2} Normal >60mL/min/ 1.73m2 [facility] Comment on above: Result Comment: If t he patient is , multiply the result by 1.210. Performed By: #### G FR #### [place] [address] Protimeon 01-28-2019 INR Coag (PPP) [Relative time] 1.07 {INR} Normal 0.90-1.30 [facility] Comment on above: Result Comment: Edwige min K Antagonist (VKA) Therapeutic Range: INR 2 to 3 (Target INR of 2.5) Note: For patients treated with VKA drugs, such as warfarin, the [employer] 2012 Guideline recommends [...] Chest 2012; 141:7S-47S Jermain BRIGGS et al. JAC 2017; 70: 252-289 Performed By: #### P T #### [place] [id number] PT Coag (PPP) [Time] 11.5 s Normal 9.7-13.0 [facility] Comment on above: Performed By: #### P T #### [address] [address] Office Visit: c-scope for po sitive fecal occult teston 12-21-2016 Alcoholism counseling (procedure) no Invalid Interpretation Code [facility] [employer] Work Phone: Documentation of current medications (procedure) Done Invalid Interpretation Code [facility] Work Phone: Fall risk assessment No Invalid Interpretation Code [facility] [employer] Work Phone: Protein mass conc no Invalid Interpretation Code [facility] [employer] Work Phone: Protein mass conc Done Invalid Interpretation Code [facility] [employer] Work Phone: Tobacco smoking status NHIS Never Invalid Interpretation Code [facility] [employer] Work Phone: Tobacco smoking status NHIS Former smoker Invalid Interpretation Code [facility] [employer] Work Phone: Tobacco use HS Former smoker Invalid Interpretation Code [facility] [employer] Work Phone: Vital Signs Date Time Vital Sign Value Performing Clinician Facility 12-17-2024 12:16-0400 Body temperature 98.7 [degF] Zebulun Beam [employer] [facility] Work Phone: 6(859)228-718334 [place] [address] 12-17-2024 12:16-0400 Diastolic blood pressure 76 mm[Hg] Zebulun Beam [employer] Work Phone: 9(311)208-433761 [place] [address] 12-17-2024 12:16-0400 Heart rate 71 /min Zebulun Beam [employer] Work Phone: 1(278)583-657661 [place] [address] 12-17-2024 12:16-0400 Respiratory rate 18 /min Zebulun Beam [employer] Work Phone: 0(229)270-526661 [place] [address] 12-17-2024 12:16-0400 SaO2% (BldA) [Mass fraction] 99 % Zebulun Beam [employer] Work Phone: 4(747)344-965161 [place] [address] 12-17-2024 12:16-0400 Systolic blood pressure 124 mm[Hg] Zebulun Beam [employer] Work Phone: 7(130)607-595361 [place] [address] 12-17-2024 08:33-0400 Body height 160.02 cm Zebulun Beam [employer] Work Phone: 8(848)836-255361 [place] [address] 12-17-2024 08:33-0400 Body mass index (BMI) [Ratio] 15 kg/m2 Zebulun Beam [employer] Work Phone: 2(616)392-479761 [place] [address] 12-17-2024 08:33-0400 Body weight 38.4 kg Zebulun Beam [employer] Work Phone: 2(482)580-488861 [place] [address] 11-29-2024 12:11-0400 Body mass index (BMI) [Ratio] 14.53 kg/m2 Jimmie Poole MD Work Phone: [facility] 11-29-2024 12:11-0400 Body temperature 98.2 [degF] Jimmie Poole MD Work Phone: [facility] 11-29-2024 12:11-0400 Body weight 37.2 kg Jimmie Poole MD Work Phone: [facility] 11-29-2024 12:11-0400 Diastolic blood pressure 54 mm[Hg] Jimmie Poole MD Work Phone: [facility] 11-29-2024 12:11-0400 Heart rate 106 /min Jimmie Poole MD Work Phone: [facility] 11-29-2024 12:11-0400 SaO2% (BldA) [Mass fraction] 99 % Jimmie Poole MD Work Phone: [facility] 11-29-2024 12:11-0400 Systolic blood pressure 90 mm[Hg] Jimmie Poole MD Work Phone: [facility] 11-29-2024 11:54-0400 Body mass index (BMI) [Ratio] 14.53 kg/m2 [facility] Work Phone: [facility] 11-29-2024 11:54-0400 Body weight 37.2 kg [facility] Work Phone: [facility] 11-25-2024 19:12-0400 Body temperature 98.4 [degF] Zebulun Beam [employer] Work Phone: [facility] 11-25-2024 19:12-0400 Diastolic blood pressure 66 mm[Hg] Zebulun Beam [employer] Work Phone: [facility] 11-25-2024 19:12-0400 Heart rate 74 /min Zebulun Beam [employer] Work Phone: [facility] 11-25-2024 19:12-0400 Respiratory rate 16 /min Zebulun Beam [employer] Work Phone: [facility] 11-25-2024 19:12-0400 SaO2% (BldA) [Mass fraction] 99 % Zebulun Beam [employer] Work Phone: [facility] 11-25-2024 19:12-0400 Systolic blood pressure 118 mm[Hg] Zebulun Beam [employer] Work Phone: [facility] 11-25-2024 17:00-0400 Body mass index (BMI) [Ratio] 15.2 kg/m2 Zebulun Beam [employer] Work Phone: 0(943)055-016261 [place] [address] 11-25-2024 17:00-0400 Body weight 39 kg Zebulun Beam [employer] Work Phone: 6(157)412-925161 [place] [address] 11-25-2024 16:21-0400 Body height 160.02 cm Zebulun Beam [employer] Work Phone: 4(207)799-536161 [place] [address] 11-21-2024 01:40-0400 Diastolic blood pressure 65 mm[Hg] Zebulun Beam [employer] Work Phone: 9(680)505-309261 [place] [address] 11-21-2024 01:40-0400 Heart rate 106 /min Zebulun Beam [employer] Work Phone: 5(571)946-006861 [place] [address] 11-21-2024 01:40-0400 Respiratory rate 24 /min Zebulun Beam [employer] Work Phone: 7(607)007-728461 [place] [address] 11-21-2024 01:40-0400 Systolic blood pressure 92 mm[Hg] Zebulun Beam [employer] Work Phone: 2(775)651-435361 [place] [address] 11-21-2024 01:30-0400 Inhaled oxygen flow rate 15 L/min Zebulun Beam [employer] Work Phone: 4(544)134-526261 [place] [address] 11-21-2024 01:30-0400 SaO2% (BldA) [Mass fraction] 100 % Zebulun Beam [employer] Work Phone: 0(832)907-235161 [place] [address] 11-21-2024 01:12-0400 Body temperature 98 [degF] Zebulun Beam [employer] Work Phone: 1(905)296-444861 [place] [address] 11-21-2024 00:58-0400 Body weight 43.9 kg Zebulun Beam [employer] Work Phone: 0(897)698-403861 [place] [address] 11-20-2024 21:45-0400 Body height 160.02 cm Zebulun Beam [employer] Work Phone: 1(542)003-053961 [place] [address] 11-20-2024 21:45-0400 Body mass index (BMI) [Ratio] 17.1 kg/m2 Zebulun Beam [employer] Work Phone: [facility] 11-19-2024 09:45-0400 Body temperature 98.1 [degF] Treatment [facility]str Work Phone: [facility] 11-19-2024 09:45-0400 Diastolic blood pressure 74 mm[Hg] Treatment [facility] Work Phone: [facility] 11-19-2024 09:45-0400 Heart rate 104 /min Treatment [facility] Work Phone: [facility] 11-19-2024 09:45-0400 Respiratory rate 18 /min Treatment [facility]str Work Phone: [facility] 11-19-2024 09:45-0400 SaO2% (BldA) [Mass fraction] 99 % Treatment [facility] Work Phone: [facility] 11-19-2024 09:45-0400 Systolic blood pressure 113 mm[Hg] Treatment [facility]str Work Phone: [facility] 11-18-2024 14:46-0400 Body mass index (BMI) [Ratio] 15.06 kg/m2 Jimmie Poole MD Work Phone: [facility] 11-18-2024 14:46-0400 Body temperature 98.1 [degF] Jimmie Poole MD Work Phone: [facility] 11-18-2024 14:46-0400 Body weight 38.56 kg Jimmie Poole MD Work Phone: [facility] 11-18-2024 14:46-0400 Diastolic blood pressure 58 mm[Hg] Jimmie Poole MD Work Phone: [facility] 11-18-2024 14:46-0400 Heart rate 96 /min Jimmie Poole MD Work Phone: [facility] 11-18-2024 14:46-0400 SaO2% (BldA) [Mass fraction] 98 % Jimmie Poole MD Work Phone: [facility] 11-18-2024 14:46-0400 Systolic blood pressure 94 mm[Hg] Jimmie Poole MD Work Phone: [facility] 11-18-2024 14:24-0400 Body mass index (BMI) [Ratio] 15.06 kg/m2 [facility] Work Phone: [facility] 11-18-2024 14:24-0400 Body weight 38.56 kg [facility] Work Phone: [facility] 11-08-2024 08:40-0400 Body temperature 98.4 [degF] Zebulun Beam [employer] Work Phone: 0(341)366-528334 [place] [address] 11-08-2024 08:40-0400 Diastolic blood pressure 60 mm[Hg] Zebulun Beam [employer] Work Phone: 6(490)821-587448 [address] 11-08-2024 08:40-0400 Heart rate 76 /min Zebulun Beam [employer] Work Phone: 2(881)297-096448 [address] 11-08-2024 08:40-0400 Respiratory rate 17 /min Zebulun Beam [employer] Work Phone: 0(514)823-948061 [place] [address] 11-08-2024 08:40-0400 SaO2% (BldA) [Mass fraction] 98 % Zebulun Beam [employer] Work Phone: 5(893)305-529861 [place] [address] 11-08-2024 08:40-0400 Systolic blood pressure 117 mm[Hg] Zebulun Beam [employer] Work Phone: 0(276)761-262034 [place] [address] 11-07-2024 16:28-0400 Body height 160.02 cm Zebulun Beam [employer] Work Phone: 6(867)717-601461 [place] [address] 11-07-2024 16:28-0400 Body mass index (BMI) [Ratio] 15.7 kg/m2 Zebulun Beam [employer] Work Phone: 9(161)281-663034 [place] [address] 11-07-2024 16:28-0400 Body weight 40.36 kg Zebulun Beam [employer] Work Phone: 7(338)350-178448 [address] 11-07-2024 16:15-0400 Body temperature 97.8 [degF] Zebulun Beam [employer] Work Phone: 8(438)725-176461 [place] [address] 11-07-2024 16:15-0400 Diastolic blood pressure 88 mm[Hg] Zebulun Beam [employer] Work Phone: 1(680)325-316861 [place] [address] 11-07-2024 16:15-0400 Heart rate 76 /min Zebulun Beam [employer] Work Phone: 2(637)747-208661 [place] [address] 11-07-2024 16:15-0400 Respiratory rate 18 /min Zebulun Beam [employer] Work Phone: 0(577)833-747061 [place] [address] 11-07-2024 16:15-0400 SaO2% (BldA) [Mass fraction] 96 % Zebulun Beam [employer] Work Phone: 7(655)463-701461 [place] [address] 11-07-2024 16:15-0400 Systolic blood pressure 135 mm[Hg] Zebulun Beam [employer] Work Phone: 9(342)960-729261 [place] [address] 11-07-2024 11:22-0400 Body mass index (BMI) [Ratio] 14.7 kg/m2 Zebulun Beam [employer] Work Phone: 2(804)333-863061 [place] [address] 11-07-2024 11:22-0400 Body weight 39 kg Zebulun Beam [employer] Work Phone: 4(211)238-116261 [place] [address] 11-07-2024 11:18-0400 Body height 162.56 cm Zebulun Beam [employer] Work Phone: 8(070)085-830261 [place] [address] 11-07-2024 09:22-0400 Body temperature 97 [degF] Treatment [facility]str Work Phone: [facility] 11-07-2024 09:22-0400 Diastolic blood pressure 67 mm[Hg] Treatment [facility]str Work Phone: [facility] 11-07-2024 09:22-0400 Heart rate 78 /min Treatment [facility]str Work Phone: [facility] 11-07-2024 09:22-0400 SaO2% (BldA) [Mass fraction] 99 % Treatment [facility] Work Phone: [facility] 11-07-2024 09:22-0400 Systolic blood pressure 124 mm[Hg] Treatment [facility]str Work Phone: [facility] 11-06-2024 12:32-0400 Body temperature 97.9 [degF] Treatment [facility]str Work Phone: [facility] 11-06-2024 12:32-0400 Diastolic blood pressure 58 mm[Hg] Treatment [facility]str Work Phone: [facility] 11-06-2024 12:32-0400 Heart rate 79 /min Treatment [facility]str Work Phone: [facility] 11-06-2024 12:32-0400 Respiratory rate 18 /min Treatment [facility]str Work Phone: [facility] 11-06-2024 12:32-0400 SaO2% (BldA) [Mass fraction] 98 % Treatment [facility] Work Phone: [facility] 11-06-2024 12:32-0400 Systolic blood pressure 95 mm[Hg] Treatment [facility]str Work Phone: [facility] 11-06-2024 09:37-0400 Body height 160 cm Treatment [facility]str Work Phone: [facility] 11-06-2024 09:37-0400 Body mass index (BMI) [Ratio] 15.95 kg/m2 Treatment [facility] Work Phone: [facility] 11-06-2024 09:37-0400 Body weight 40.82 kg Treatment [facility]str Work Phone: [facility] 11-05-2024 10:25-0400 Body mass index (BMI) [Ratio] 15.53 kg/m2 Jimmie Poole MD Work Phone: [facility] 11-05-2024 10:25-0400 Body temperature 97.7 [degF] Jimmie Poole MD Work Phone: [facility] 11-05-2024 10:25-0400 Body weight 41.05 kg Jimmie Poole MD Work Phone: [facility] 11-05-2024 10:25-0400 Diastolic blood pressure 54 mm[Hg] Jimmie Poole MD Work Phone: [facility] 11-05-2024 10:25-0400 Heart rate 85 /min Jimmie Poole MD Work Phone: [facility] 11-05-2024 10:25-0400 SaO2% (BldA) [Mass fraction] 98 % Jimmie Poole MD Work Phone: [facility] 11-05-2024 10:25-0400 Systolic blood pressure 92 mm[Hg] Jimmie Poole MD Work Phone: [facility] 10-23-2024 11:38-0400 Body temperature 97.9 [degF] Zebulun Beam [employer] Work Phone: [facility] 10-23-2024 11:38-0400 Diastolic blood pressure 88 mm[Hg] Zebulun Beam [employer] Work Phone: [facility] 10-23-2024 11:38-0400 Heart rate 99 /min Zebulun Beam [employer] Work Phone: [facility] 10-23-2024 11:38-0400 Respiratory rate 18 /min Zebulun Beam [employer] Work Phone: [facility] 10-23-2024 11:38-0400 SaO2% (BldA) [Mass fraction] 99 % Zebulun Beam [employer] Work Phone: [facility] 10-23-2024 11:38-0400 Systolic blood pressure 132 mm[Hg] Zebulun Beam [employer] Work Phone: [facility] 10-23-2024 09:17-0400 Body height 162.56 cm Zebulun Beam [employer] Work Phone: [facility] 10-10-2024 14:00-0400 Body mass index (BMI) [Ratio] 15.35 kg/m2 Jimmie Poole MD Work Phone: [facility] 10-10-2024 14:00-0400 Body temperature 98.1 [degF] Jimmie Poole MD Work Phone: [facility] 10-10-2024 14:00-0400 Body weight 40.6 kg Jimmie Poole MD Work Phone: [facility] 10-10-2024 14:00-0400 Diastolic blood pressure 53 mm[Hg] Jimmie Poole MD Work Phone: [facility] 10-10-2024 14:00-0400 Heart rate 79 /min Jimmie Poole MD Work Phone: [facility] 10-10-2024 14:00-0400 SaO2% (BldA) [Mass fraction] 98 % Jimmie Poole MD Work Phone: [facility] 10-10-2024 14:00-0400 Systolic blood pressure 91 mm[Hg] Jimmie Poole MD Work Phone: [facility] 09-25-2024 14:34-0400 Body mass index (BMI) [Ratio] 15.1 kg/m2 Jimmie Poole MD Work Phone: [facility] 09-25-2024 14:34-0400 Body temperature 97.5 [degF] Jimmie Poole MD Work Phone: [facility] 09-25-2024 14:34-0400 Body weight 39.92 kg Jimmie Poole MD Work Phone: [facility] 09-25-2024 14:34-0400 Diastolic blood pressure 52 mm[Hg] Jimmie Poole MD Work Phone: [facility] 09-25-2024 14:34-0400 Heart rate 79 /min Jimmie Poole MD Work Phone: [facility] 09-25-2024 14:34-0400 SaO2% (BldA) [Mass fraction] 98 % Jimmie Poole MD Work Phone: [facility] 09-25-2024 14:34-0400 Systolic blood pressure 94 mm[Hg] Jimmie Poole MD Work Phone: [facility] 09-16-2024 10:33-0400 Body height 162.6 cm Tessa Spring MD Work Phone: [facility] 09-16-2024 10:33-0400 Body mass index (BMI) [Ratio] 14.75 kg/m2 Tessa Spring MD Work Phone: [facility] 09-16-2024 10:33-0400 Body temperature 97.11 [degF] Tessa Spring MD Work Phone: [facility] 09-16-2024 10:33-0400 Body weight 39 kg Tessa Spring MD Work Phone: [facility] 09-16-2024 10:33-0400 Diastolic blood pressure 72 mm[Hg] Tessa Spring MD Work Phone: [facility] 09-16-2024 10:33-0400 Heart rate 92 /min Tessa Spring MD Work Phone: [facility] 09-16-2024 10:33-0400 SaO2% (BldA) [Mass fraction] 97 % Tessa Spring MD Work Phone: [facility] 09-16-2024 10:33-0400 Systolic blood pressure 101 mm[Hg] Tessa Spring MD Work Phone: [facility] 09-13-2024 08:36-0400 Body temperature 98 [degF] Zebulun Beam [employer] Work Phone: [facility] 09-13-2024 08:36-0400 Diastolic blood pressure 69 mm[Hg] Zebulun Beam [employer] Work Phone: [facility] 09-13-2024 08:36-0400 Heart rate 70 /min Zebulun Beam [employer] Work Phone: [facility] 09-13-2024 08:36-0400 Respiratory rate 16 /min Zebulun Beam [employer] Work Phone: [facility] 09-13-2024 08:36-0400 SaO2% (BldA) [Mass fraction] 99 % Zebulun Beam [employer] Work Phone: [facility] 09-13-2024 08:36-0400 Systolic blood pressure 106 mm[Hg] Zebulun Beam [employer] Work Phone: 2(121)795-891334 [place] [address] 09-11-2024 14:41-0400 Body height 162.56 cm Zebulun Beam [employer] Work Phone: 7(295)664-826234 [place] [address] 09-11-2024 14:41-0400 Body weight 40 kg Zebulun Beam [employer] Work Phone: 9(853)871-717934 [place] [address] 09-10-2024 13:44-0400 Body mass index (BMI) [Ratio] 15.1 kg/m2 Zebulun Beam [employer] Work Phone: 2(144)002-378034 [place] [address] 07-31-2024 08:27-0400 Body mass index (BMI) [Ratio] 16.13 kg/m2 Jimmie Poole MD Work Phone: [facility] 07-31-2024 08:27-0400 Body temperature 97.39 [degF] Jimmie Poole MD Work Phone: [facility] 07-31-2024 08:27-0400 Body weight 42.64 kg Jimmie Poole MD Work Phone: [facility] 07-31-2024 08:27-0400 Diastolic blood pressure 62 mm[Hg] Jimmie Poole MD Work Phone: [facility] 07-31-2024 08:27-0400 Heart rate 77 /min Jimmie Poole MD Work Phone: [facility] 07-31-2024 08:27-0400 SaO2% (BldA) [Mass fraction] 100 % Jimmie Poole MD Work Phone: [facility] 07-31-2024 08:27-0400 Systolic blood pressure 94 mm[Hg] Jimmie Poole MD Work Phone: [facility] 07-11-2024 13:22-0400 Body temperature 98.3 [degF] Christie Saenz [employer] Work Phone: [facility] 07-11-2024 13:22-0400 Diastolic blood pressure 84 mm[Hg] Christie Saenz [employer] Work Phone: [facility] 07-11-2024 13:22-0400 Heart rate 99 /min Christie Saenz [employer] Work Phone: [facility] 07-11-2024 13:22-0400 Respiratory rate 16 /min Christie Saenz [employer] Work Phone: [facility] 07-11-2024 13:22-0400 SaO2% (BldA) [Mass fraction] 98 % Christie Saenz [employer] Work Phone: [facility] 07-11-2024 13:22-0400 Systolic blood pressure 122 mm[Hg] Christie Saenz [employer] Work Phone: [facility] 07-11-2024 11:00-0400 Body height 162.56 cm Christie Saenz [employer] Work Phone: [facility] 07-11-2024 11:00-0400 Body mass index (BMI) [Ratio] 15.7 kg/m2 Christie Saenz [employer] Work Phone: [facility] 07-11-2024 11:00-0400 Body weight 41.77 kg Christie Saenz [employer] Work Phone: [facility] 06-17-2024 09:57-0400 Body mass index (BMI) [Ratio] 15.53 kg/m2 Adrienne Bahena Work Phone: [facility] 06-17-2024 09:57-0400 Body temperature 96.49 [degF] Adrienne Bahena Work Phone: [facility] 06-17-2024 09:57-0400 Body weight 41.05 kg Adrienne Bahena Work Phone: [facility] 06-17-2024 09:57-0400 Diastolic blood pressure 63 mm[Hg] Adrienne Bahena Work Phone: [facility] 06-17-2024 09:57-0400 Heart rate 107 /min Adrienne Bahena Work Phone: [facility] 06-17-2024 09:57-0400 SaO2% (BldA) [Mass fraction] 99 % Adrienne Bahena Work Phone: [facility] 06-17-2024 09:57-0400 Systolic blood pressure 94 mm[Hg] Adrienne Bahena Work Phone: [facility] 05-13-2024 11:44-0500 Body height 162.6 cm Fe Edmond APRN.PROCESS DESCRIPTION WRITER Work Phone: [facility] 05-13-2024 11:44-0500 Body mass index (BMI) [Ratio] 16.34 kg/m2 Fe Edmond DEPENDENCY DIRECTOR.PROCESS DESCRIPTION WRITER Work Phone: [facility] 05-13-2024 11:44-0500 Body weight 43.18 kg Fe Edmond DEPENDENCY DIRECTOR.PROCESS DESCRIPTION WRITER Work Phone: [facility] 05-13-2024 11:44-0500 Heart rate 97 /min Fe Edmond DEPENDENCY DIRECTOR.PROCESS DESCRIPTION WRITER Work Phone: [facility] 05-13-2024 11:44-0500 SaO2% (BldA) [Mass fraction] 97 % Fe Edmond DEPENDENCY DIRECTOR.PROCESS DESCRIPTION WRITER Work Phone: [facility] 05-06-2024 11:25-0500 Body mass index (BMI) [Ratio] 16.05 kg/m2 Adrienne Bahena Work Phone: [facility] 05-06-2024 11:25-0500 Body temperature 97.11 [degF] Adrienne Bahena Work Phone: [facility] 05-06-2024 11:25-0500 Body weight 42.41 kg Adrienne Bahena Work Phone: [facility] 05-06-2024 11:25-0500 Diastolic blood pressure 52 mm[Hg] Adrienne Bahena Work Phone: [facility] 05-06-2024 11:25-0500 Heart rate 83 /min Adrienne Bahena Work Phone: [facility] 05-06-2024 11:25-0500 SaO2% (BldA) [Mass fraction] 100 % Adrienne Bahena Work Phone: [facility] 05-06-2024 11:25-0500 Systolic blood pressure 88 mm[Hg] Adrienne Bahena Work Phone: [facility] 04-16-2024 14:03-0500 Body mass index (BMI) [Ratio] 15.79 kg/m2 Adrienne Bahena Work Phone: [facility] 04-16-2024 14:03-0500 Body temperature 98.6 [degF] Adrienne Bahena Work Phone: [facility] 04-16-2024 14:03-0500 Body weight 41.73 kg Adrienne Bahena Work Phone: [facility] 04-16-2024 14:03-0500 Diastolic blood pressure 65 mm[Hg] Adrienne Bahena Work Phone: [facility] 04-16-2024 14:03-0500 Heart rate 95 /min Adrienne Bahena Work Phone: [facility] 04-16-2024 14:03-0500 SaO2% (BldA) [Mass fraction] 96 % Adrienne Bahena Work Phone: [facility] 04-16-2024 14:03-0500 Systolic blood pressure 90 mm[Hg] Adrienne Bahena Work Phone: [facility] 04-08-2024 16:35-0500 Diastolic blood pressure 72 mm[Hg] Christie Gonzalo TRAY FILLER-C Work Phone: 0(011)039-128434 [place] [address] 04-08-2024 16:35-0500 Heart rate 105 /min Christie Gonzalo TRAY FILLER-C Work Phone: 1(279)936-504034 [place] [address] 04-08-2024 16:35-0500 Respiratory rate 18 /min Christie Gonzalo TRAY FILLER-C Work Phone: 7(159)055-098034 [place] [address] 04-08-2024 16:35-0500 SaO2% (BldA) [Mass fraction] 98 % Christie Gonzalo TRAY FILLER-C Work Phone: 7(967)167-741561 [place] [address] 04-08-2024 16:35-0500 Systolic blood pressure 128 mm[Hg] Christieasuncion Saenz TRAY FILLER-C Work Phone: 3(366)655-315161 [place] [address] 04-08-2024 14:35-0500 Body mass index (BMI) [Ratio] 16 kg/m2 Christie Gonzalo TRAY FILLER-C Work Phone: 7(102)172-965734 [place] [address] 04-08-2024 14:35-0500 Body temperature 96.8 [degF] Christie Gonzalo TRAY FILLER-C Work Phone: 4(651)164-504034 [place] [address] 04-08-2024 14:35-0500 Body weight 42.18 kg Christie Gonzalo TRAY FILLER-C Work Phone: 0(294)322-428434 [place] [address] 04-08-2024 13:56-0500 Body mass index (BMI) [Ratio] 16.01 kg/m2 Jeremiah Adame MD Work Phone: [facility] 04-08-2024 13:56-0500 Body temperature 98.2 [degF] Jeremiah Adame MD Work Phone: [facility] 04-08-2024 13:56-0500 Body weight 42.3 kg Jeremiah Adame MD Work Phone: [facility] 04-08-2024 13:56-0500 Diastolic blood pressure 62 mm[Hg] Jeremiah Adame MD Work Phone: [facility] 04-08-2024 13:56-0500 Heart rate 118 /min Jeremiah Adame MD Work Phone: [facility] 04-08-2024 13:56-0500 Respiratory rate 18 /min Jeremiah Adame MD Work Phone: [facility] 04-08-2024 13:56-0500 SaO2% (BldA) [Mass fraction] 99 % Jeremiah Adame MD Work Phone: [facility] 04-08-2024 13:56-0500 Systolic blood pressure 104 mm[Hg] Jeremiah Adame MD Work Phone: [facility] 03-07-2024 10:18-0500 Body height 162.6 cm Tessa Spring MD Work Phone: [facility] 03-07-2024 10:18-0500 Body mass index (BMI) [Ratio] 16.57 kg/m2 Tessa Spring MD Work Phone: [facility] 03-07-2024 10:18-0500 Body weight 43.8 kg Tessa Spring MD Work Phone: [facility] 03-07-2024 10:18-0500 Diastolic blood pressure 72 mm[Hg] Tessa Spring MD Work Phone: [facility] 03-07-2024 10:18-0500 Heart rate 73 /min Tessa Spring MD Work Phone: [facility] 03-07-2024 10:18-0500 Systolic blood pressure 115 mm[Hg] Tessa Spring MD Work Phone: [facility] 02-03-2024 09:48-0500 Body temperature 98.01 [degF] Yulia Xie RN Work Phone: [facility] 02-03-2024 09:48-0500 Diastolic blood pressure 64 mm[Hg] Yulia Xie RN Work Phone: [facility] 02-03-2024 09:48-0500 Heart rate 84 /min Yulia Xie RN Work Phone: [facility] 02-03-2024 09:48-0500 Respiratory rate 16 /min Yulia Xie RN Work Phone: [facility] 02-03-2024 09:48-0500 SaO2% (BldA) [Mass fraction] 99 % Yuliaalec Xie RN Work Phone: [facility] 02-03-2024 09:48-0500 Systolic blood pressure 102 mm[Hg] Yulia Xie RN Work Phone: [facility] 02-01-2024 10:46-0500 Body mass index (BMI) [Ratio] 15.28 kg/m2 Jimmie Poole MD Work Phone: [facility] 02-01-2024 10:46-0500 Body temperature 97.39 [degF] Jimmie Poole MD Work Phone: [facility] 02-01-2024 10:46-0500 Body weight 40.37 kg Jimmie Poole MD Work Phone: [facility] 02-01-2024 10:46-0500 Diastolic blood pressure 66 mm[Hg] Jimmie Poole MD Work Phone: [facility] 02-01-2024 10:46-0500 Heart rate 95 /min Jimmie Poole MD Work Phone: [facility] 02-01-2024 10:46-0500 SaO2% (BldA) [Mass fraction] 98 % Jimmie Poole MD Work Phone: [facility] 02-01-2024 10:46-0500 Systolic blood pressure 97 mm[Hg] Jimmie Poole MD Work Phone: [facility] 01-29-2024 09:59-0500 Body mass index (BMI) [Ratio] 15.17 kg/m2 Fe Edmond APRN.CNP Work Phone: [facility] 01-29-2024 09:59-0500 Body weight 40.1 kg Fe Madridpster DEPENDENCY DIRECTOR.PROCESS DESCRIPTION WRITER Work Phone: [facility] 01-29-2024 09:59-0500 Diastolic blood pressure 68 mm[Hg] Fe Madridpster DEPENDENCY DIRECTOR.PROCESS DESCRIPTION WRITER Work Phone: [facility] 01-29-2024 09:59-0500 Heart rate 81 /min Fe Madridpster DEPENDENCY DIRECTOR.PROCESS DESCRIPTION WRITER Work Phone: [facility] 01-29-2024 09:59-0500 Respiratory rate 18 /min Fe Madridpster DEPENDENCY DIRECTOR.PROCESS DESCRIPTION WRITER Work Phone: [facility] 01-29-2024 09:59-0500 SaO2% (BldA) [Mass fraction] 99 % Fe Vaughnter DEPENDENCY DIRECTOR.PROCESS DESCRIPTION WRITER Work Phone: [facility] 01-29-2024 09:59-0500 Systolic blood pressure 130 mm[Hg] Fe Madridpster DEPENDENCY DIRECTOR.PROCESS DESCRIPTION WRITER Work Phone: [facility] 01-26-2024 14:20-0400 Body temperature 98.1 [degF] Yluia Most RN Work Phone: [facility] 01-26-2024 14:20-0400 Diastolic blood pressure 60 mm[Hg] Yulia Most RN Work Phone: [facility] 01-26-2024 14:20-0400 Heart rate 92 /min Yulia Most RN Work Phone: [facility] 01-26-2024 14:20-0400 Respiratory rate 16 /min Yulia Most RN Work Phone: [facility] 01-26-2024 14:20-0400 SaO2% (BldA) [Mass fraction] 99 % Yulia Most RN Work Phone: [facility] 01-26-2024 14:20-0400 Systolic blood pressure 96 mm[Hg] Yulia Most RN Work Phone: [facility] 01-23-2024 11:39-0400 Body temperature 98.6 [degF] Montserrat Shobha CLINICAL SYSTEMS EDUCATOR Work Phone: [facility] 01-23-2024 11:39-0400 Diastolic blood pressure 68 mm[Hg] Montserrat Shobha CLINICAL SYSTEMS EDUCATOR Work Phone: [facility] 01-23-2024 11:39-0400 Heart rate 82 /min Montserrat Shobha CLINICAL SYSTEMS EDUCATOR Work Phone: [facility] 01-23-2024 11:39-0400 Respiratory rate 16 /min Montserrat Shobha CLINICAL SYSTEMS EDUCATOR Work Phone: [facility] 01-23-2024 11:39-0400 SaO2% (BldA) [Mass fraction] 99 % Montserrat Shobha CLINICAL SYSTEMS EDUCATOR Work Phone: [facility] 01-23-2024 11:39-0400 Systolic blood pressure 110 mm[Hg] Montserrat Shobha CLINICAL SYSTEMS EDUCATOR Work Phone: [facility] 01-19-2024 14:48-0400 Body temperature 98.6 [degF] Shelby Begum-Geovanna PT Work Phone: [facility] 01-19-2024 14:48-0400 Diastolic blood pressure 70 mm[Hg] Shelby Molinaman-Geovanna PT Work Phone: [facility] 01-19-2024 14:48-0400 Heart rate 71 /min Shelby Begum-Geovanna PT Work Phone: [facility] 01-19-2024 14:48-0400 Respiratory rate 16 /min Shelby Begum-Austin PT Work Phone: [facility] 01-19-2024 14:48-0400 SaO2% (BldA) [Mass fraction] 99 % Shelby Begum-Austin PT Work Phone: [facility] 01-19-2024 14:48-0400 Systolic blood pressure 104 mm[Hg] Shelby Halderman-Austin PT Work Phone: [facility] 01-19-2024 12:39-0400 Body temperature 98.01 [degF] Yulia Most RN Work Phone: [facility] 01-19-2024 12:39-0400 Diastolic blood pressure 62 mm[Hg] Yulia Xie RN Work Phone: [facility] 01-19-2024 12:39-0400 Heart rate 92 /min Yulia Most RN Work Phone: [facility] 01-19-2024 12:39-0400 Respiratory rate 16 /min Yulia Most RN Work Phone: [facility] 01-19-2024 12:39-0400 SaO2% (BldA) [Mass fraction] 99 % Yulia Most RN Work Phone: [facility] 01-19-2024 12:39-0400 Systolic blood pressure 98 mm[Hg] Yuliaalec Xie RN Work Phone: [facility] 01-18-2024 10:15-0400 Body height 162.6 cm Tessa Spring MD Work Phone: [facility] 01-18-2024 10:15-0400 Body mass index (BMI) [Ratio] 14.99 kg/m2 Tessa Spring MD Work Phone: [facility] 01-18-2024 10:15-0400 Body weight 39.6 kg Tessa Spring MD Work Phone: [facility] 01-18-2024 10:15-0400 Diastolic blood pressure 67 mm[Hg] Tessa Spring MD Work Phone: [facility] 01-18-2024 10:15-0400 Heart rate 79 /min Tessa Spring MD Work Phone: [facility] 01-18-2024 10:15-0400 Systolic blood pressure 104 mm[Hg] Tessa Spring MD Work Phone: [facility] 01-16-2024 09:57-0400 Heart rate 98 /min Dash Leonard PT Work Phone: [facility] 01-16-2024 09:57-0400 SaO2% (BldA) [Mass fraction] 99 % Dash Leonard PT Work Phone: [facility] 01-16-2024 09:36-0400 Body temperature 97.5 [degF] Dash Leonard PT Work Phone: [facility] 01-16-2024 09:36-0400 Diastolic blood pressure 60 mm[Hg] Dash Leonard PT Work Phone: [facility] 01-16-2024 09:36-0400 Respiratory rate 16 /min Dash Leonard PT Work Phone: [facility] 01-16-2024 09:36-0400 Systolic blood pressure 108 mm[Hg] Dash Leonard PT Work Phone: [facility] 01-13-2024 14:07-0400 Body temperature 98.49 [degF] Shelby Brown PT Work Phone: [facility] 01-13-2024 14:07-0400 Diastolic blood pressure 60 mm[Hg] Shelby Brown PT Work Phone: [facility] 01-13-2024 14:07-0400 Heart rate 92 /min Shelby Brown PT Work Phone: [facility] 01-13-2024 14:07-0400 Respiratory rate 16 /min Shelby Brown PT Work Phone: [facility] 01-13-2024 14:07-0400 SaO2% (BldA) [Mass fraction] 97 % Shelby Brown PT Work Phone: [facility] 01-13-2024 14:07-0400 Systolic blood pressure 90 mm[Hg] Shelby Brown PT Work Phone: [facility] 01-11-2024 17:18-0400 Body temperature 98.4 [degF] Pricila Peace RN Work Phone: [facility] 01-11-2024 17:18-0400 Diastolic blood pressure 64 mm[Hg] Pricila Peace RN Work Phone: [facility] 01-11-2024 17:18-0400 Heart rate 95 /min Pricila Peace RN Work Phone: [facility] 01-11-2024 17:18-0400 Respiratory rate 16 /min Pricila Peace RN Work Phone: [facility] 01-11-2024 17:18-0400 SaO2% (BldA) [Mass fraction] 97 % Pricila Peace RN Work Phone: [facility] 01-11-2024 17:18-0400 Systolic blood pressure 98 mm[Hg] Pricila Peace RN Work Phone: [facility] 12-28-2023 08:57-0400 Body height 162.6 cm Pacc 2 Work Phone: [facility] 12-28-2023 08:57-0400 Body mass index (BMI) [Ratio] 15.93 kg/m2 Pacc 2 Work Phone: [facility] 12-28-2023 08:57-0400 Body temperature 97.39 [degF] Pacc 2 Work Phone: [facility] 12-28-2023 08:57-0400 Body weight 42.1 kg Pacc 2 Work Phone: [facility] 12-28-2023 08:57-0400 Diastolic blood pressure 68 mm[Hg] Pacc 2 Work Phone: [facility] 12-28-2023 08:57-0400 Heart rate 89 /min Pacc 2 Work Phone: [facility] 12-28-2023 08:57-0400 Respiratory rate 16 /min Pacc 2 Work Phone: [facility] 12-28-2023 08:57-0400 SaO2% (BldA) [Mass fraction] 99 % Pacc 2 Work Phone: [facility] 12-28-2023 08:57-0400 Systolic blood pressure 94 mm[Hg] [facility] 2 Work Phone: [facility] 12-18-2023 10:02-0400 Body height 162.6 cm Tessa Spring MD Work Phone: [facility] 12-18-2023 10:02-0400 Body mass index (BMI) [Ratio] 16.07 kg/m2 Tessa Spring MD Work Phone: [facility] 12-18-2023 10:02-0400 Body temperature 97 [degF] Tessa Spring MD Work Phone: [facility] 12-18-2023 10:02-0400 Body weight 42.5 kg Tessa Spring MD Work Phone: [facility] 12-18-2023 10:02-0400 Diastolic blood pressure 62 mm[Hg] Tessa Spring MD Work Phone: [facility] 12-18-2023 10:02-0400 Heart rate 100 /min Tessa Spring MD Work Phone: [facility] 12-18-2023 10:02-0400 SaO2% (BldA) [Mass fraction] 98 % Tessa Spring MD Work Phone: [facility] 12-18-2023 10:02-0400 Systolic blood pressure 86 mm[Hg] Tessa Spring MD Work Phone: [facility] 12-18-2023 08:14-0400 Diastolic blood pressure 56 mm[Hg] Pipe Estevez MD Work Phone: [facility] 12-18-2023 08:14-0400 Heart rate 83 /min Pipe Estevez MD Work Phone: [facility] 12-18-2023 08:14-0400 SaO2% (BldA) [Mass fraction] 99 % Pipe Estevez MD Work Phone: [facility] 12-18-2023 08:14-0400 Systolic blood pressure 83 mm[Hg] Pipe Estevez MD Work Phone: [facility] 10-23-2023 09:02-0400 Body height 162.6 cm Christie Hylton MD Work Phone: [facility] 10-23-2023 09:02-0400 Body mass index (BMI) [Ratio] 15.45 kg/m2 Christie Hylton MD Work Phone: [facility] 10-23-2023 09:02-0400 Body weight 40.82 kg Christie Hylton MD Work Phone: [facility] 10-23-2023 09:02-0400 Diastolic blood pressure 61 mm[Hg] Christie Hylton MD Work Phone: [facility] 10-23-2023 09:02-0400 Heart rate 89 /min Christie Hylton MD Work Phone: [facility] 10-23-2023 09:02-0400 Respiratory rate 20 /min Christie Hylton MD Work Phone: [facility] 10-23-2023 09:02-0400 SaO2% (BldA) [Mass fraction] 99 % Christie Hylton MD Work Phone: [facility] 10-23-2023 09:02-0400 Systolic blood pressure 94 mm[Hg] Christie Hylton MD Work Phone: [facility] 10-11-2023 13:38-0400 Body mass index (BMI) [Ratio] 15.59 kg/m2 Cisco Gurrola MD Work Phone: [facility] 10-11-2023 13:38-0400 Body temperature 98.01 [degF] Cisco Gurrola MD Work Phone: [facility] 10-11-2023 13:38-0400 Body weight 41.19 kg Cisco Gurrola MD Work Phone: [facility] 10-11-2023 13:38-0400 Diastolic blood pressure 73 mm[Hg] Cisco Gurrola MD Work Phone: [facility] 10-11-2023 13:38-0400 Heart rate 96 /min Cisco Gurrola MD Work Phone: [facility] 10-11-2023 13:38-0400 SaO2% (BldA) [Mass fraction] 98 % Cisco Gurrola MD Work Phone: [facility] 10-11-2023 13:38-0400 Systolic blood pressure 104 mm[Hg] Cisco Gurrola MD Work Phone: [facility] 10-11-2023 11:34-0400 Body height 162.6 cm Kailyn Coleman MD Work Phone: [facility] 10-11-2023 11:34-0400 Body mass index (BMI) [Ratio] 15.62 kg/m2 Kailyn Coleman MD Work Phone: [facility] 10-11-2023 11:34-0400 Body temperature 97.59 [degF] Kailyn Coleman MD Work Phone: [facility] 10-11-2023 11:34-0400 Body weight 41.28 kg Kailyn Coleman MD Work Phone: [facility] 10-11-2023 11:34-0400 Diastolic blood pressure 63 mm[Hg] Kailyn Coleman MD Work Phone: [facility] 10-11-2023 11:34-0400 Heart rate 96 /min Kailyn Coleman MD Work Phone: [facility] 10-11-2023 11:34-0400 SaO2% (BldA) [Mass fraction] 96 % Kailyn Coleman MD Work Phone: [facility] 10-11-2023 11:34-0400 Systolic blood pressure 103 mm[Hg] Kailyn Coleman MD Work Phone: [facility] 10-03-2023 09:38-0400 Body height 162.6 cm Jayla Fung MD Work Phone: [facility] 10-03-2023 09:38-0400 Body mass index (BMI) [Ratio] 15.17 kg/m2 Jayla Fung MD Work Phone: [facility] 10-03-2023 09:38-0400 Body temperature 97 [degF] Jayla Fung MD Work Phone: [facility] 10-03-2023 09:38-0400 Body weight 40.1 kg Jayla Fung MD Work Phone: [facility] 10-03-2023 09:38-0400 Diastolic blood pressure 50 mm[Hg] Jayla Fung MD Work Phone: [facility] 10-03-2023 09:38-0400 Heart rate 122 /min Jayla Fung MD Work Phone: [facility] 10-03-2023 09:38-0400 SaO2% (BldA) [Mass fraction] 99 % Jayla Fung MD Work Phone: [facility] 10-03-2023 09:38-0400 Systolic blood pressure 96 mm[Hg] Jayla Fung MD Work Phone: [facility] 12-21-2016 13:05-0400 BMI (Body Mass Index) 18.3 kg/m2 [facility] Work Phone: 12-21-2016 13:05-0400 BP Diastolic 68 mm[Hg] Push[facility] Work Phone: 12-21-2016 13:05-0400 BP Systolic 101 mm[Hg] Push[facility] Work Phone: 12-21-2016 13:05-0400 Height 165.1 cm Push[facility] Work Phone: 12-21-2016 13:05-0400 Pulse (Heart Rate) 92 /min [facility] Work Phone: 12-21-2016 13:05-0400 Respiratory Rate 18 /min Pushpa [facility] Work Phone: 12-21-2016 13:040 Weight 49.9 kg Pushpa [facility] Work Phone: Encounters Encounter Date Encounter Type Care Provider Facility Start: 01-30-2025 End: 01-30-2025 ambulatory [facility] Facility:[facility] Start: 01-29-2025 End: 01-29-2025 ambulatory [facility] Facility:[facility] Start: 01-28-2025 End: 01-28-2025 ambulatory [facility] Facility:[facility] Start: 01-28-2025 End: 01-28-2025 ambulatory [facility] Facility:[facility] Start: 01-19-2025 ambulatory Doni Caballero [facility] [place] Start: 01-19-2025 End: 01-21-2025 Evaluation and management of inpatient Doni Caballero Facility:[facility] Start: 01-07-2025 End: 01-07-2025 ambulatory [facility] Facility:[facility] Start: 01-02-2025 End: 01-02-2025 ambulatory [facility] Facility:[facility] Start: 12-31-2024 End: 12-31-2024 ambulatory [facility] Facility:[facility] Start: 12-27-2024 End: 12-27-2024 ambulatory [facility] Facility:[facility] Start: 12-26-2024 End: 12-26-2024 ambulatory [facility] Facility:[facility] Start: 12-24-2024 End: 12-24-2024 ambulatory JAG LENZ Facility:[facility] Start: 12-17-2024 End: 12-17-2024 Dr. Johnny Colunga DO -Emergency Department Work Phone: Start: 12-17-2024 End: 12-17-2024 Emergency department patient visit Aubrey KIRBY Work Phone: -Emergency Department Start: 12-16-2024 End: 12-16-2024 ambulatory JIMMIE POOLE Facility:[facility] Start: 12-13-2024 End: 12-13-2024 ambulatory JIMMIE POOLE Facility:[facility] Start: 12-10-2024 End: 12-10-2024 Admission to same day surgery center Tessa Spring MD Work Phone: General Surgery Comment on above: Handicapped car plac nile Start: 12-10-2024 End: 12-10-2024 ambulatory Tessa Spring MD Work Phone: General Surgery Start: 12-06-2024 End: 12-06-2024 ambulatory [facility] Work Phone: Hematology/Oncology Comment on above: Hypokalemia; Malignant neoplasm of ascending colon (HCC) Start: 12-04-2024 End: 12-06-2024 ambulatory Jimmie Poole MD Work Phone: Hematology/Oncology Comment on above: Potassium Chloride Start: 12-03-2024 End: 12-03-2024 Telemedicine consultation with patient Kristi Barroso LETI.PROCESS DESCRIPTION WRITER Work Phone: [employer] Start: 12-03-2024 End: 12-03-2024 ambulatory Kristi Barroso PROCESS DESCRIPTION WRITER Work Phone: [employer] Comment on above: Palliative care by s pecialist (Primary Dx); Adenocarcinoma of cecum (HCC); Cancer related pain; Weight loss; Anorexia; CINV (chemotherapy-induced nausea and vomiting); Malignant neoplasm of ascending colon (HCC) Start: 12-02-2024 End: 12-02-2024 ambulatory Treatment Rm [facility] Work Phone: Hematology/Oncology Comment on above: Adenocarcinoma of ce cum (HCC) (Primary Dx) Start: 11-30-2024 End: 12-02-2024 ambulatory Jimmie Poole MD Work Phone: Hematology/Oncology Comment on above: Palliative Care Zoom CAT SCAN Start: 11-29-2024 End: 11-29-2024 Patient encounter procedure Jimmie Poole MD Work Phone: Hematology/Oncology Start: 11-29-2024 End: 11-29-2024 ambulatory [facility] Work Phone: Hematology/Oncology Comment on [...] Hematology/Oncology Comment on above: Care Coordination (D iarrluis) Appointment Start: 11-26-2024 End: 11-26-2024 Telephone encounter Jimmie Poole MD Work Phone: Hematology/Oncology Comment on above: Patient Update Implementation Architect - H ospital Follow Up Start: 11-25-2024 End: 11-25-2024 Dr. Demarcus Gauthier MD -Emergency Departmen t Work Phone: Start: 11-25-2024 End: 11-25-2024 Emergency department patient visit Aubrey Lopez TRAY FILLER-C Work Phone: -Emergency Department Work Phone: Start: 11-25-2024 End: 11-26-2024 Refill Jimmie Poole MD Work Phone: Hematology/Oncology Comment on above: Refill Request Start: 11-24-2024 End: 11-26-2024 ambulatory Adrienne Bahena Work Phone: Hematology/Oncology Comment on above: [facility] Dischar ge and medication Start: 11-21-2024 End: 11-21-2024 Office outpatient visit 40 minutes Tessa Spring MD Work Phone: General Surgery Comment on above: Adenocarcinoma of ce cum (HCC) (Primary Dx); Metastasis to liver (HCC) Start: 11-21-2024 End: 11-22-2024 ambulatory Saadia Gonzales APRN.PROCESS DESCRIPTION WRITER Work Phone: Critical Care Start: 11-21-2024 End: 11-26-2024 Telephone encounter Jimmie Poole MD Work Phone: Hematology/Oncology Comment on above: Patient Update Start: 11-21-2024 End: 11-23-2024 Evaluation and management of inpatient [place] GONZALEZ Facility:[facility] Start: 11-20-2024 ambulatory Nawafjohn Baltazarny Facility:[facility] Start: 11-20-2024 Non-patient / Non-visit Dr. Rachana liu MD -[facility] Start: 11-20-2024 End: 11-21-2024 Dr. Kavin Birch -Emergency [facility] t Work Phone: Start: 11-20-2024 End: 11-21-2024 Emergency department patient visit Aubrey Lopez TRAY FILLER-C Work Phone: -Emergency Department Work Phone: Start: 11-20-2024 End: 11-20-2024 Telephone encounter Kaet Castillo RN Work Phone: Hematology/Oncology Comment on above: Care Coordination (F ollow up Call) [id number] Pallative Medi cine Start: 11-19-2024 End: 11-19-2024 ambulatory Treatment Rm 10 [facility] Work Phone: Hematology/Oncology Comment on above: Adenocarcinoma of ce cum (HCC) (Primary Dx) Start: 11-18-2024 End: 11-18-2024 Patient encounter procedure Jimmie Poole MD Work Phone: Hematology/Oncology Start: 11-18-2024 End: 11-18-2024 Telephone encounter Amber CASE Hematology/Oncology Comment on above: Social Work Services Start: 11-18-2024 End: 11-18-2024 ambulatory Lab/Port [facility] Work Phone: Hematology/Oncology Comment on above: 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); 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) Start: 11-13-2024 End: 11-14-2024 Telephone encounter Jimmie Poole MD Work Phone: Hematology/Oncology Comment on above: Patient Question Start: 11-11-2024 End: 11-11-2024 Telephone encounter Piedadr Letha Spring MD Work Phone: General Surgery Comment on above: Patient Question Start: 11-10-2024 End: 11-12-2024 Refill Samekiera Spring MD Work Phone: General Surgery Comment on above: Refill Request Start: 11-08-2024 End: 11-08-2024 Telephone encounter Samer Letha Spring MD Work Phone: General Surgery Comment on above: Implementation Architect - O ther; Returning Patient's Call Start: [...] End: 11-07-2024 ambulatory Alyson Brown RN NURSE PLASTERER FOREMAN Comment on above: Patient Update Adenocarcinoma of ce cum (HCC) (Primary Dx) Start: 11-06-2024 End: 11-06-2024 ambulatory Treatment Rm 7 [facility] Work Phone: Hematology/Oncology Comment on above: Adenocarcinoma of ce cum (HCC) (Primary Dx) Start: 11-05-2024 End: 11-05-2024 Patient encounter procedure Jimmie Poole MD Work Phone: Hematology/Oncology Start: 11-05-2024 End: 11-05-2024 ambulatory Lab/[facility] Work Phone: Hematology/Oncology Comment on above: Adenocarcinoma of ce cum (HCC) Adenocarcinoma of ce cum (HCC) (Primary Dx) Start: 10-25-2024 End: 10-25-2024 Telephone encounter Amber Driscolljane CASE Hematology/Oncology Comment on above: Social Work [...] 10-23-2024 End: 10-23-2024 Emergency department patient visit Aubrey KIRBY Work Phone: -Emergency Department Work Phone: Start: 10-22-2024 End: 10-24-2024 Admission to same day surgery center Tessa Spring MD Work Phone: General Surgery Comment on above: Pain Start: 10-22-2024 End: 10-24-2024 ambulatory Tessa Spring MD Work Phone: General Surgery Start: 10-21-2024 End: 10-21-2024 ambulatory [facility] Facility:[facility] Start: 10-18-2024 End: 10-18-2024 ambulatory Zebulun Beam TRAY FILLER-C Work Phone: -Physical Therapy Start: 10-18-2024 End: 10-18-2024 Discharged Recurring Zebulun Beam TRAY FILLER-C -Physical Therapy Work Phone: Start: 10-18-2024 Registered Recurring Zebulun Beam TRAY FILLER -C -Physical Therapy Work Phone: Start: 10-18-2024 End: 10-18-2024 Zebulun Beam TRAY FILLER-C -Physical Therapy Work Phone: Start: 10-15-2024 End: [...] Future Appointment Start: 10-02-2024 End: 10-02-2024 ambulatory [facility] Facility:[facility] Start: 10-02-2024 End: 10-02-2024 flat ironer [facility] Work Phone: Hematology/Oncology Comment on above: Encounter for educat ion (Primary Dx); Adenocarcinoma of cecum (HCC) Start: 10-01-2024 End: 10-01-2024 ambulatory Shannan Washington RN [facility] Radiology Comment on above: You are scheduled fo r a medport placement at [facility] on 10/10/2024 - [place] Adenocarcinoma of ce cum (HCC) (Primary Dx) Start: 10-01-2024 End: 10-01-2024 E-mail encounter from caregiver Shannan Washington RN [facility] Radiology Start: 09-30-2024 End: 09-30-2024 ambulatory [facility] Facility:[facility] Start: 09-25-2024 End: 09-25-2024 Patient encounter procedure Jimmie Poole MD Work Phone: Hematology/Oncology Start: 09-25-2024 End: 09-25-2024 ambulatory Jimmie Poole MD Work Phone: Hematology/Oncology Comment on above: Adenocarcinoma of ce cum (HCC) (Primary Dx) Start: 09-25-2024 End: 09-26-2024 Telephone encounter Ellyn Zhang RN Hematology/Oncology Comment on above: Implementation Architect - O ther (Introduction ) AV 09/25 Start: 09-20-2024 End: 09-20-2024 [facility] Edwardo Valencia APRN.CNP Work Phone: RFEyeD Services Comment on above: Palliative care by s pecialist (Primary Dx); Cancer related pain; Severe protein-calorie malnutrition (HCC); Nonintractable epilepsy without status epilepticus, unspecified epilepsy type (HCC); Seizures (HCC); Muscular deconditioning; Failure to thrive in adult; Adenocarcinoma of cecum (HCC); Malignant neoplasm of colon, unspecified part of colon (HCC); Opioid-induced constipation; Major depressive disorder, recurrent, in partial remission Start: 09-16-2024 End: 09-16-2024 ambulatory [facility] Facility:[facility] Start: 09-16-2024 End: 09-16-2024 Patient encounter [...] procedure Dr. Qamar Smith MD -Cat Scan [facility] Work Phone: Start: 09-13-2024 End: 09-13-2024 Dr. Qamar Smith MD -Cat Scan [facility] Work Phone: Start: 09-13-2024 End: 09-13-2024 ambulatory Qamar Joe Luis Facility:[facility] Start: 09-04-2024 End: 09-13-2024 Dr. Qamar Smith MD -Transitional Care U nit Start: 09-04-2024 End: 09-13-2024 Evaluation and management of inpatient Dr. Qamar Smith MD -Transitional Care Unit Start: 09-04-2024 End: 09-05-2024 Telephone encounter Tricia Burdick [facility] Comment on above: [id number] palliative car e f/u Implementation Architect - H ospital Follow Up Start: 09-03-2024 End: 09-03-2024 Telephone encounter Olga Kennedy LPN Work Phone: [facility] Comment on above: Home Care (MD justin lowry ) Home Care (CONFIRMAT ION CALL ) Start: 08-28-2024 End: 09-04-2024 Evaluation and management of inpatient TESSA SPRING Facility:[facility] Start: 08-22-2024 End: 08-22-2024 Telephone encounter Kate Castillo RN Work Phone: Hematology/Oncology Comment on above: Implementation Architect - H ospital Follow Up Start: 08-19-2024 End: 08-21-2024 Evaluation and management of inpatient RADHA RODRIGUEZ Facility:[facility] Start: 08-17-2024 End: 08-20-2024 ambulatory Jimmie Poole MD Work Phone: Hematology/Oncology Comment on above: Pain Start: 08-14-2024 End: 08-14-2024 ambulatory [facility] Facility:[facility] Start: 08-14-2024 Encounter for other preprocedural examination JAG LENZ [facility] Start: 08-14-2024 End: 08-14-2024 ambulatory [facility] Facility:[facility] Start: 08-07-2024 End: 08-07-2024 Specialty Pharmacy Cathy Macias [facility] Comment on above: SPP [...] Request Start: 07-24-2024 End: 07-24-2024 ambulatory PAOLA John OSORIO Facility:[facility] Start: 07-21-2024 End: 07-22-2024 ambulatory Jimmie Poole MD Work Phone: Hematology/Oncology Comment on above: Pain has increased f rom about a 5 to 8 in the last two days. I have been taking Tylenol but not feeling much relief. Start: 07-19-2024 End: 07-19-2024 ambulatory [facility] Facility:[facility] Start: 07-17-2024 End: 07-17-2024 Orders Only [...] cecum (HCC) Start: 07-15-2024 End: 07-15-2024 ambulatory [facility] Facility:[facility] Start: 07-11-2024 End: 07-16-2024 Orders Only Tessa Spring MD Work Phone: General Surgery Comment on above: Malignant neoplasm o f ascending colon (HCC) (Primary Dx) Right lower quadrant abdominal pain [R10.31] Patient Update Start: 07-11-2024 End: 07-11-2024 Emergency department patient visit Christie Saenz TRAY FILLER-C Work Phone: -Emergency Department Work Phone: Start: [...] Phone: Hematology/Oncology Start: 06-17-2024 End: 06-17-2024 ambulatory [facility] Facility:[facility] Start: 06-13-2024 End: 06-13-2024 Specialty Pharmacy [facility] Comment on above: SPP Oral Oncology/he matology - Medication Refill (capecitabine) Start: 05-29-2024 End: 05-29-2024 Telephone encounter Jimmie Poole MD Work Phone: Hematology/Oncology Start: 05-27-2024 End: 05-27-2024 [facility] Facility:[facility] Start: 05-24-2024 End: 05-28-2024 Telephone encounter Kate Castillo RN Work Phone: Hematology/Oncology Comment on above: Care Coordination (D ental Procedure ) Start: 05-22-2024 End: 05-22-2024 Specialty Pharmacy [facility] Comment on above: SPP Oral Oncology/he matology - Medication Refill (Capecitabine) Start: 05-13-2024 End: 05-13-2024 ambulatory [facility] Facility:[facility] Start: 05-13-2024 End: 05-13-2024 Patient encounter procedure Fe Edmond APRN.CNP Work Phone: Pulmonary Medicine Comment on above: Lung nodules (Primar y Dx); Former tobacco use; Adenocarcinoma of cecum (HCC) Start: 05-07-2024 End: 05-07-2024 ambulatory Marisa Monaco [facility] Pulmonary Medicine Start: 05-06-2024 End: 05-06-2024 Patient encounter procedure Adrienne Bahena Work Phone: Hematology/Oncology Start: 05-06-2024 End: 05-06-2024 ambulatory Adrienne Bahena Work Phone: Hematology/Oncology Comment on above: Malignant neoplasm o f ascending colon (HCC) (Primary Dx) Start: 05-03-2024 End: 05-03-2024 ambulatory [facility] Facility:[facility] Start: 05-03-2024 End: 05-03-2024 Subsequent hospital visit by physician Shal[facility] ([facility]) Work Phone: Cat Scan Comment on above: Lung nodules [R91.8] Start: 05-02-2024 End: 05-02-2024 Specialty Pharmacy Cathy Macias [facility] Comment [...] Start: 04-11-2024 End: 04-11-2024 ambulatory T[facility]SA SPRING Facility:[facility] Start: 04-11-2024 End: 04-11-2024 Telemedicine consultation with patient Tessa Spring MD Work Phone: General Surgery Start: 04-10-2024 End: 04-10-2024 Specialty Pharmacy [facility] Comment on above: SPP Oral Oncology/he matology - Medication Refill (capecitabine) Start: 04-08-2024 End: 04-08-2024 Patient encounter procedure Jeremiah Adame MD Work Phone: [facility] Comment on above: Gastroenteritis (Ellie akira Dx); Dehydration Start: 04-08-2024 End: 04-08-2024 Emergency department patient visit Dr. Ankit Marsh MD -Emergency Department Work Phone: Start: 04-08-2024 End: 04-08-[address] [facility] Start: 04-08-2024 End: 04-08-2024 Telephone encounter Nae Devlin Research Coordinator [facility] Provider Adult Comment on above: research follow up Start: 03-25-2024 End: 03-25-2024 Telephone encounter Tessa Spring MD Work Phone: Colorectal Surgery Comment on above: Care Coordination Start: 03-22-2024 End: 03-22-2024 ambulatory MARY MOSS Facility:[facility] Start: 03-21-2024 End: 03-21-2024 Specialty Pharmacy [facility] Comment on above: SPP Oral Oncology/he matology - Medication Refill (capecitabine) Start: 03-19-2024 End: 03-19-2024 ambulatory Fe Edmond APRN.PROCESS DESCRIPTION WRITER Work Phone: Pulmonary Medicine Start: 03-19-2024 End: 04-04-2024 Telephone encounter Fe Edmond APRN.PROCESS DESCRIPTION WRITER Work Phone: Pulmonary Medicine Comment on above: Appointment Start: 03-15-2024 End: 03-15-2024 ambulatory T[facility]SA SPRING Facility:[facility] Start: 03-15-2024 End: 03-15-2024 ambulatory MRAY MOSS Facility:[facility] Start: 03-15-2024 End: 03-15-2024 Subsequent hospital visit by physician Ct Prep [facility] Cat Scan Comment on above: Right lower quadrant abdominal pain [R10.31] Start: 03-07-2024 End: 03-07-2024 ambulatory [facility] Facility:[facility] Start: 03-07-2024 End: 03-07-2024 Office outpatient visit 25 minutes Tessa Spring MD Work Phone: General Surgery Comment on above: RLQ abdominal pain ( Primary Dx); Right lower quadrant abdominal pain Start: 02-29-2024 End: 02-29-2024 Telephone encounter Kate Castillo RN Work Phone: Hematology/Oncology Comment on above: Future Appointment Start: 02-28-2024 End: 02-28-2024 Specialty Pharmacy Cathy Macias [facility] Comment on above: SPP Oral [...] Request Start: 02-07-2024 End: 02-07-2024 ambulatory Christie Saenz [facility] Facility:[facility] Start: 02-05-2024 End: 02-05-2024 ambulatory Cathy Macias [facility] Start: 02-05-2024 End: 02-05-2024 Patient encounter procedure Cathy Macias [facility] Comment on above: SPP Oral Oncology/he matology - Treatment Referral (capecitabine); Insurance Authorization (No PA needed) Start: 02-03-2024 End: 02-03-2024 Home visit Yulia Xie RN Work Phone: [facility] Comment on above: SN AGENCY DC W VISIT Start: 02-02-2024 End: 02-02-2024 Home visit Joe Williamson RN Work Phone: [facility] Comment on above: CARE COORDINATION PT DISC DC WO VISIT Start: 02-01-2024 End: 02-01-2024 ambulatory Jimmie Poole MD Work Phone: Hematology/Oncology Comment on above: Malignant neoplasm o f ascending colon (HCC) Start: 02-01-2024 End: 02-01-2024 Patient encounter procedure Jimmie Poole MD Work Phone: Hematology/Oncology Start: 02-01-2024 End: 02-01-2024 Home visit Montserrat Yeager CLINICAL SYSTEMS EDUCATOR Work Phone: [facility] Comment on above: CLINICAL SYSTEMS EDUCATOR UNMADE VISIT Start: 01-31-2024 End: 02-02-2024 Telephone encounter Tessa Spring MD Work Phone: General Surgery Comment on above: pain at surgry site Start: 01-31-2024 End: 01-31-2024 Home visit Montserrat Yeager CLINICAL SYSTEMS EDUCATOR Work Phone: [facility] Comment on above: CLINICAL SYSTEMS EDUCATOR UNMADE VISIT Start: 01-29-2024 End: 01-29-2024 Patient encounter procedure Fe Edmond DEPENDENCY DIRECTORSilvestrePROCESS DESCRIPTION WRITER Work Phone: Pulmonary Medicine Comment on above: Multiple lung nodule s (Primary Dx); Former tobacco use; Adenocarcinoma of cecum (HCC) Start: 01-26-2024 End: 01-26-2024 Telephone encounter Montserrat Yeager CLINICAL SYSTEMS EDUCATOR Work Phone: [facility] Comment on above: Home Care (Unmade PT visit ) Start: 01-26-2024 End: 01-26-2024 Subsequent hospital visit by physician Shalonda [facility] ([facility]) Work Phone: Cat Scan Comment on above: Intra-abdominal and pelvic swelling, mass and lump, unspecified site [R19.00] Start: 01-26-2024 End: 01-26-2024 Home visit Montserrat Yeager CLINICAL SYSTEMS EDUCATOR Work Phone: [facility] Comment on above: CLINICAL SYSTEMS EDUCATOR UNMADE VISIT SN ROUTINE Start: 01-23-2024 End: 01-23-2024 Home visit Montserrat Yeager CLINICAL SYSTEMS EDUCATOR Work Phone: [facility] Comment on above: CLINICAL SYSTEMS EDUCATOR ROUTINE Start: 01-19-2024 End: 01-23-2024 Telephone encounter Tessa Spring MD Work Phone: Colorectal Surgery Comment on above: Patient Update Start: 01-19-2024 End: 01-19-2024 Home visit Shelby Brown PT Work Phone: [facility] Comment on above: PT ROUTINE [...] Start: 01-18-2024 End: 01-18-2024 ambulatory Gi [facility] Comment on above: Abdominal Mass Start: 01-16-2024 End: 01-16-2024 Home visit Dash Leonard PT Work Phone: [facility] Comment on above: PT ROUTINE Start: 01-13-2024 End: 01-13-2024 Home visit Shelby Kevin PT Work Phone: [facility] Comment on above: PT EVAL Start: 01-11-2024 End: 01-11-2024 Home visit Pricila Peace RN Work Phone: [facility] Comment on above: SN SOC Start: 01-11-2024 End: 01-11-2024 Telephone encounter Pricila Peace RN Work Phone: [facility] Comment on above: Home Care (Medicatio n interaction ) Start: 01-10-2024 End: 01-10-2024 Telephone encounter Tessa Spring MD Work Phone: General Surgery Comment on above: Nausea (vomitting); Implementation Architect - Other; Returning Patient's Call Home Care [...] 01-04-2024 End: 11-06-2024 Telephone encounter Mary Moss PROCESS DESCRIPTION WRITER Work Phone: [facility] Start: 01-03-2024 End: 01-08-2024 Evaluation and management of inpatient [facility]ING Facility:[facility] Start: 12-28-2023 End: 12-28-2023 ambulatory LISBETH ALFORD Facility:[facility] Start: 12-28-2023 End: 12-28-2023 Admission to [place] [id number] Work Phone: Pre Anesthesia Start: 12-28-2023 End: 12-28-2023 Anesthesia consultation [place] [id number] Work Phone: Pre Anesthesia Comment on above: Pre-op evaluation (P rimary Dx); Seizures (HCC); Iron deficiency anemia secondary to inadequate dietary iron intake; Anxiety and depression; Inflammation of colonic mucosa; Failure to thrive in adult Start: 12-28-2023 End: 12-28-2023 Preprocedural examination done [place] [id number] Work Phone: [facility] Work Phone: Start: 12-28-2023 End: 12-28-2023 [facility] Comment on above: Perforated appendix (Primary Dx) Start: 12-28-2023 [facility]counter for other [facility]procedural [facility] Start: 12-27-2023 End: 12-28-2023 Telephone encounter Tessa Spring MD Work Phone: Colorectal Surgery Comment on above: Patient Question; Re turning Patient's Call; Implementation Architect - Other Start: 12-18-2023 End: 12-18-2023 Patient encounter procedure Tessa Spring MD Work Phone: General Surgery Comment on above: Right lower quadrant abdominal abscess (HCC) (Primary Dx); Perforated appendix; Adult failure to thrive Perforated appendix (Primary Dx) Excessive physiologi c tremor (Primary Dx); Focal epilepsy (HCC); Abnormal thyroid blood test; Essential tremor; Hypothyroidism, unspecified type Start: 12-04-2023 End: 12-04-2023 ambulatory Amish Castorena APRN.CNP Work Phone: Pulmonary Medicine Start: 11-08-2023 Telephone encounter Rossana Brooke PA-C Work Phone: Gastroenterology [place] Comment on above: Appointment Start: 10-24-2023 ambulatory [...] protein-calorie malnutrition (HCC) Start: 10-10-2023 ambulatory Amish Castorena DEPENDENCY DIRECTOR.PROCESS DESCRIPTION WRITER Work Phone: Pulmonary Medicine Start: 10-09-2023 ambulatory Marisa Monaco Pulmonar y Medicine Start: 10-03-2023 End: 10-03-2023 Patient encounter procedure Jayla Fung MD Work Phone: General Surgery Comment on above: Encounter for fittin g and adjustment of non-vascular catheter (Primary Dx) Start: 10-02-2023 ambulatory Marisa Monaco Pulmonar y Medicine Start: 09-27-2023 Telephone encounter Mary bee Work Phone: Internal Medicine Start: 09-20-2023 ambulatory Merlyn lockett APRN.PROCESS DESCRIPTION WRITER Work Phone: Pulmonary Medicine Start: 09-08-2023 Telephone encounter Christie silva MD Work Phone: Neurology Comment on above: medication concern ( Medication concern) Start: 09-07-2023 ambulatory Prsicilla Vines Research Coordinator Neurology Comment on above: Epilepsy Center Rese arch Study Start: 09-07-2023 E-mail encounter jacqueline willson caregiver Priscilla Vines Research Coordinator Neurology Start: 08-04-2023 Telephone encounter Christie silva MD Work Phone: Neurology Comment on above: Medication Concern ( Depakote) Start: 08-02-2023 Telephone encounter Christie silva MD Work Phone: Neurology Comment on above: Orders (Lab) Start: 08-01-2023 End: 08-01-2023 ambulatory Ashly Lange DEPENDENCY DIRECTOR.PROCESS DESCRIPTION WRITER Work Phone: Neurology Comment on above: Focal epilepsy (HCC) Start: 08-01-2023 End: 08-01-2023 Telemedicine consultation with patient Ashly Lange APRN.PROCESS DESCRIPTION WRITER Work Phone: Neurology Start: 07-31-2023 Telephone encounter Christie silva MD Work Phone: Neurology Comment on above: Seizures Start: 05-08-2023 Refill Christie Hylton MD Work Phone: Neurology Comment on above: Refill Request Start: 01-25-2023 End: 01-25-2023 ambulatory [facility] Work Phone: Start: 01-25-2023 End: 01-25-2023 Patient encounter procedure [facility] Work Phone: Start: 01-18-2023 Telephone encounter Christie silva MD Work Phone: Neurology Comment on above: Other (Lab orders fa xed) Start: 01-18-2023 End: 01-18-2023 ambulatory [facility] Work Phone: Start: 01-18-2023 End: 01-18-2023 Patient encounter procedure [facility] Work Phone: Start: 10-28-2022 End: 11-01-2022 ambulatory UNKNOWN PROVIDER Facility:[facility] Start: 10-28-2022 End: 10-28-2022 Patient encounter procedure Sheila Wilkinsongrant DMD Work Phone: [facility] Comment on above: Arrived Start: 09-23-2022 End: 09-23-2022 ambulatory UNKNOWN PROVIDER Facility:[facility] Start: 07-21-2022 End: 07-21-2022 ambulatory Amish Cole DEPENDENCY DIRECTOR.PROCESS DESCRIPTION WRITER Work Phone: Neurology Comment on above: Focal epilepsy (HCC) Start: 07-21-2022 End: 07-21-2022 Telemedicine consultation with patient Amish Cole APRN.PROCESS DESCRIPTION WRITER Work Phone: [facility] Start: 07-20-2022 Telephone encounter Christie silva MD Work Phone: Neurology Comment on above: Seizures Start: 10-11-2021 Telephone encounter Christie silva MD Work Phone: Neurology Comment on above: Outside Lab Results Start: 10-11-2021 End: 10-11-2021 Patient encounter procedure [facility] Start: 09-16-2021 Telephone encounter Christie silva MD Work Phone: Neurology Comment on above: Outside Labs Results ([facility]) Start: 09-15-2021 Telephone encounter Christie silva MD Work Phone: Neurology Comment on above: Seizures Start: 07-05-2021 End: 07-05-2021 ambulatory Christie Hylton MD Work Phone: Neurology Comment on above: Abnormal CBC (Primar y Dx); 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); Encounter for monitoring long-term anticonvulsant therapy Start: 07-05-2021 End: 07-05-2021 Telemedicine consultation with patient Christie Hylton MD Work Phone: [facility] Start: 07-02-2021 End: 07-02-2021 Patient encounter procedure [facility] Procedures Date Procedure Procedure Detail Performing Clinician Start: 12-17-2024 Urine microscopy: re d cells Zebulun Beam TRAY FILLER-C Work Phone: Start: 12-17-2024 Urnls dip stick/tabl et reagent auto microscopy Zebulun Beam TRAY FILLER-C Work Phone: Start: 12-17-2024 Blood count smear mc rscp w/mnl difrntl wbc count Zebulun Beam TRAY FILLER-C Work Phone: Start: 12-17-2024 Estimated creatinine clearance Zebulun Beam TRAY FILLER-C Work Phone: Start: 12-17-2024 Mean corpuscular hemoglobin concentration determination Zebulun Beam TRAY FILLER-C Work Phone: Start: 12-17-2024 Nucleated red blood cell count procedure Zebulun Beam TRAY FILLER-C Work Phone: Start: 12-17-2024 Platelet mean volume determination Zebulun Beam TRAY FILLER-C Work Phone: Start: 12-17-2024 Triacylglycerol lipa se measurement Zebulun Beam TRAY FILLER-C Work Phone: Start: 12-17-2024 Ct abdomen & pelvis w/contrast material Zebulun Beam TRAY FILLER-C Work Phone: Start: 12-06-2024 Basic metabolic pane l calcium total Jimmie Poole MD Work Phone: Start: 12-02-2024 Blood count complete auto&auto difrntl wbc Jimmie Poole MD Work Phone: Start: 11-29-2024 Blood count complete auto&auto difrntl wbc Jimmie Poole MD Work Phone: Start: 11-25-2024 Urine microscopy: re d cells Zebulun Beam TRAY FILLER-C Work Phone: Start: 11-25-2024 Urnls dip stick/tabl et reagent auto microscopy Zebulun Beam TRAY FILLER-C Work Phone: Start: 11-25-2024 Blood count smear mc rscp w/mnl difrntl wbc count Zebulun Beam TRAY FILLER-C Work Phone: Start: 11-25-2024 Estimated creatinine clearance Zebulun Beam TRAY FILLER-C Work Phone: Start: 11-25-2024 Mean corpuscular hemoglobin concentration determination Zebulun Beam TRAY FILLER-C Work Phone: Start: 11-25-2024 Nucleated red blood cell count procedure Zebulun Beam TRAY FILLER-C Work Phone: Start: 11-25-2024 Platelet mean volume determination Zebulun Beam TRAY FILLER-C Work Phone: Start: 11-25-2024 Triacylglycerol lipa se measurement Zebulun Beam TRAY FILLER-C Work Phone: Start: 11-21-2024 Lipid 1996 panel - S massiel or Plasma Tessa Spring MD Work Phone: Start: 11-20-2024 CT angiography of ch est with contrast Zebulun Beam TRAY FILLER-C Work Phone: Start: 11-20-2024 Calculation of international normalized ratio Zebulun Beam TRAY FILLER-C Work Phone: Start: 11-20-2024 Plain chest X-ray Zebul un Beam TRAY FILLER-C Work Phone: Start: 11-20-2024 Blood count smear mc rscp w/mnl difrntl wbc count Zebulun Beam TRAY FILLER-C Work Phone: Start: 11-20-2024 Estimated creatinine clearance Zebulun Beam TRAY FILLER-C Work Phone: Start: 11-20-2024 Mean corpuscular hemoglobin concentration determination Zebulun Beam TRAY FILLER-C Work Phone: Start: 11-20-2024 Nucleated red blood cell count procedure Zebulun Beam TRAY FILLER-C Work Phone: Start: 11-20-2024 Platelet mean volume determination Zebulun Beam TRAY FILLER-C Work Phone: Start: 11-18-2024 Blood count complete auto&auto difrntl wbc Jimmie Poole MD Work Phone: Start: 11-08-2024 Blood count smear mc rscp w/mnl difrntl wbc count Zebulun Beam TRAY FILLER-C Work Phone: Start: 11-08-2024 Calculation of international normalized ratio Zebulun Beam TRAY FILLER-C Work Phone: Start: 11-08-2024 Estimated creatinine clearance Zebulun Beam TRAY FILLER-C Work Phone: Start: 11-08-2024 Mean corpuscular hemoglobin concentration determination Zebulun Beam TRAY FILLER-C Work Phone: Start: 11-08-2024 Nucleated red blood cell count procedure Zebulun Beam TRAY FILLER-C Work Phone: Start: 11-08-2024 Platelet mean volume determination Zebulun Beam TRAY FILLER-C Work Phone: Start: 11-07-2024 Assay of lactate Zebulu n Beam TRAY FILLER-C Work Phone: Start: 11-07-2024 End: 11-07-2024 Iadna-dna/rna gi pthgn multiplex probe tq 6-11 Zebulun Beam TRAY FILLER-C Work Phone: Start: 11-07-2024 MRI of abdomen with contrast Zebulun Beam TRAY FILLER-C Work Phone: Start: 11-07-2024 Clostridium difficil e detection Zebulun Beam TRAY FILLER-C Work Phone: Start: 11-07-2024 Nucleic acid assay Zebu reji Beam TRAY FILLER-C Work Phone: Start: 11-07-2024 Urine microscopy: re d cells Zebulun Beam TRAY FILLER-C Work Phone: Start: 11-07-2024 Estimated creatinine clearance Zebulun Beam TRAY FILLER-C Work Phone: Start: 11-07-2024 Triacylglycerol lipa se measurement Zebulun Beam TRAY FILLER-C Work Phone: Start: 11-07-2024 Computed tomography of abdomen and pelvis with intravenous contrast Zebulun Beam TRAY FILLER-C Work Phone: Start: 11-05-2024 Blood count complete auto&auto difrntl wbc Jimmie Poole MD Work Phone: Start: 10-23-2024 Blood count smear mc rscp w/mnl difrntl wbc count Zebulun Beam TRAY FILLER-C Work Phone: Start: 10-23-2024 Mean corpuscular hemoglobin concentration determination Zebulun Beam TRAY FILLER-C Work Phone: Start: 10-23-2024 Nucleated red blood cell count procedure Zebulun Beam TRAY FILLER-C Work Phone: Start: 10-23-2024 Platelet mean volume determination Zebulun Beam TRAY FILLER-C Work Phone: Start: 10-23-2024 Triacylglycerol lipa se measurement Zebulun Beam TRAY FILLER-C Work Phone: Start: 09-13-2024 Computed tomography of abdomen and pelvis with contrast Zebulun Beam TRAY FILLER-C Work Phone: Start: 09-12-2024 Blood count smear mc rscp w/mnl difrntl wbc count Zebulun Beam TRAY FILLER-C Work Phone: Start: 09-12-2024 Estimated creatinine clearance Zebulun Beam TRAY FILLER-C Work Phone: Start: 09-12-2024 Mean corpuscular hemoglobin concentration determination Zebulun Beam TRAY FILLER-C Work Phone: Start: 09-12-2024 Nucleated red blood cell count procedure Zebulun Beam TRAY FILLER-C Work Phone: Start: 09-12-2024 Platelet mean volume determination Zebulun Beam TRAY FILLER-C Work Phone: Start: 08-28-2024 Antibody screen PIEDADR [place] AIKEN Comment on above: Order Comment: Speci men Type: BLOOD SPECIMENOrdering Facility: [facility] Address: [address] [place] [address] Performed By: #### T SCR ####[facility] BLOOD BANKCLIA [id number] [address] Start: 08-14-2024 Antibody screen JAG LENZ Comment on above: Order Comment: Speci men Type: BLOOD SPECIMENOrdering Facility: [facility] Address: [address] [place] [address] Performed By: #### T [id number] ####[facility] BLOOD BANKCLIA [id number] [address] Start: 07-30-2024 Gen seq analys yousif org/hemtolmphoid joseph 51/> gen Jimmie Poole MD Work Phone: Start: 07-11-2024 Ct abdomen & pelvis w/contrast material Tessa Spring MD Work Phone: Start: 07-11-2024 Urnls dip stick/tabl et reagent auto microscopy Zebulun Beam TRAY FILLER-C Work Phone: Start: 07-11-2024 Estimated creatinine clearance Zebulun Beam TRAY FILLER-C Work Phone: Start: 12-28-2023 Antibody screen TESSA AIKEN Comment on above: Order Comment: Speci men Type: BLOOD SPECIMEN Ordering Facility: [facility] Address: [address] [place] [address] Performed By: #### T [id number] #### [facility]OD [facility] [id number] [address] [place] [address] [facility] 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 Plan of Treatment Date Care Activity Detail Author Start: 08-16-2032 Tetanus vaccination Tetanus (Td or Tdap) Booster [facility] Start: 08-16-2032 Urine microalbumin profile DTaP,Tdap,Td Vaccine (2 - Td or Tdap) [facility] Start: 11-21-2029 Lipid panel Lipid Screening [facility] Start: 12-07-2027 Diabetes Screening Diabetes Screening [facility] Start: 11-30-2027 Diabetes Screening Diabetes Screening [facility] Start: 11-23-2027 Diabetes Screening Diabetes Screening [facility] Start: 11-22-2027 Diabetes Screening Diabetes Screening [facility] Start: 11-19-2027 Diabetes Screening Diabetes Screening [facility] Start: 11-06-2027 Diabetes Screening Diabetes Screening [facility] Start: 09-03-2027 Diabetes Screening Diabetes Screening [facility] Start: 08-21-2027 Diabetes Screening Diabetes Screening [facility] Start: 07-20-2027 Diabetes Screening Diabetes Screening [facility] Start: 06-18-2027 Diabetes Screening Diabetes Screening [facility] Start: 05-28-2027 Diabetes Screening Diabetes Screening [facility] Start: 05-06-2027 Diabetes Screening Diabetes Screening [facility] Start: 04-16-2027 Diabetes Screening Diabetes Screening [facility] Start: 03-22-2027 Diabetes Screening Diabetes Screening [facility] Start: 02-14-2027 Diabetes Screening Diabetes Screening [facility] Start: 02-08-2027 HPV TESTING HPV TESTING [facility] Start: 02-08-2027 PAP TESTING PAP TESTING [facility] Start: 02-08-2027 Screening for malignant neoplasm of cervix [facility] Start: 01-07-2027 Diabetes Screening Diabetes Screening [facility] Start: 12-18-2026 Diabetes Screening Diabetes Screening [facility] Start: 09-25-2026 Diabetes Screening Diabetes Screening [facility] Start: 09-19-2026 Diabetes Screening Diabetes Screening [facility] Start: 09-18-2026 Diabetes Screening Diabetes Screening [facility] Start: 05-19-2025 End: 05-19-2025 Patient encounter procedure Cat Scan Comment on above: yearly Chest CT yearly C/M/N Start: 02-12-2025 End: 02-12-2025 ambulatory 02/12/2025 4:00 PM EST [facility]fusion [facility] Hematology/Oncology [address] [place] [address] Wstr, Lab/Port [facility] [address] [place] [address] DC/CADD* Hematology/Oncology Comment on above: DC/CADD* Start: 02-10-2025 End: 02-10-2025 ambulatory 02/10/2025 1:30 PM EST Infusion Center Hematology/Oncology [address] [place] [address] Q2WK OXALIPLATON(PORT)LAB&OV 02/07* MON [place] Hematology/Oncology Comment on above: Q2WK OXALIPLATON(PORT)LAB&OV 02/07* MON [place] Start: 02-07-2025 End: 02-07-2025 ambulatory Hematology/Oncology Comment on above: (SO)CBC/CMP(S)/MG(S)(PORT)/OV TODAY* OV(PORT)LAB EARLY/CH EMO 02/10* ZULEMA Start: 01-29-2025 End: 01-29-2025 ambulatory 01/29/2025 4:00 PM EST Infusion Center Hematology/Oncology [address] [place] [address] Wstr, Lab/Port [facility] [address] [place] [address] DC/CADD* Hematology/Oncology Comment on above: DC/CADD* Start: 01-27-2025 End: 01-27-2025 ambulatory Hematology/Oncology Comment on above: Q2WK FOLFOX(PORT)LAB&OV 01/24* MON [place] Q2WK OXALIPLATIN(POR T)LAB&OV 01/24* MON [place] Start: 01-24-2025 End: 01-24-2025 ambulatory Hematology/Oncology Comment on above: (SO)CBC/CMP(S)/MG(S)(PORT)/OV TODAY* OV(PORT)CHEMO 01/27* CHRISTIEAMCONORH OV(PORT)CT 01/15/VERONICA MO 01/27* ABRAMOVICH OV(PORT)LAB EARLY/CT 01/15/CHEMO 01/27* CHRISTIEAMCONORH Start: 01-15-2025 End: 01-15-2025 ambulatory 01/15/2025 4:00 PM EDT Infusion Center Hematology/Oncology [address] [place] [address] Wstr, Lab/Port [facility] [address] [place] [address] DC/CADD* Hematology/Oncology Comment on above: DC/CADD* Start: [...] 9:30 AM EDT Mobile [facility] [address] [place] [address] Edwardo Valencia APRN.[facility] [address] [place] [address] [place] [id number] seen by Kristi Keen [facility] Comment on above: [place] [phone] seen by Kristi Keen Start: 01-01-2025 End: 01-01-2025 ambulatory 01/01/2025 4:00 PM EDT Infusion Center Hematology/Oncology [address] [place] [address] Wstr, Lab/Port [facility] [address] [place] [address] DC/CADD* Hematology/Oncology Comment on above: DC/CADD* Start: 12-30-2024 End: 12-30-2024 ambulatory Hematology/Oncology Comment on above: Q2WK FOLFOX(PORT)LAB&OV 12/27* MON [place] Q2WK OXALIPLATIN(POR T)LAB&OV 12/27* MON [place] Start: 12-27-2024 End: 12-27-2024 ambulatory Hematology/Oncology Comment on above: (SO)CBC/CMP(S)/MG(S)(PORT)/OV TODAY* OV(PORT)CHEMO 12/30* ZULEMA Start: 12-20-2024 End: 12-20-2024 ambulatory 12/20/2024 4:00 PM EDT Infusion Center Hematology/Oncology [address] [place] [address] Wstr, Lab/Port [facility] [address] [place] [address] DC/CADD* Hematology/Oncology Comment on above: DC/CADD* Start: 12-18-2024 End: 12-18-2024 ambulatory Hematology/Oncology Comment on above: Q2WK FOLFOX(PORT)LAB&OV 12/17* DC/CADD* Start: 12-17-2024 End: 12-17-2024 Patient encounter procedure 12/17/2024 10:00 AM EDT [facility] [address] [place] [address] Jag Lenz, RD [address] [place] [address] CONSULT Nutrition Therapy Comment on above: CONSULT [...] TODAY* CEA MO NTHLY OV(PORT)CHEMO 12/04* ZULEMA Pall med Start: 12-02-2024 End: 12-02-2024 ambulatory Hematology/Oncology Comment on above: Q2WK FOLFOX(PORT)LAB&OV 11/29* MON [place] Q2WK OXALIPLATIN ONL Y (PORT)LAB&OV 11/29* MON [place] Start: 11-29-2024 End: 11-29-2024 ambulatory Hematology/Oncology Comment on above: DC/CADD* (SO)CBC/CMP(S)/MG(S) (PORT)/OV TODAY* OV(PORT)CHEMO 12/02* Letha BARRIENTOS Start: 11-27-2024 End: 11-27-2024 ambulatory 11/27/2024 10:30 AM EDT Infusion Center Hematology/Oncology [address] [place] [address] Q2WK FOLFOX(PORT)LAB&OV 11/26* Hematology/Oncology Comment on above: Q2WK FOLFOX(PORT)LAB&OV 11/26* Start: 11-26-2024 End: 11-26-2024 ambulatory Hematology/Oncology Comment on above: CBC/CMP/MG(PORT)OV TODAY* CEA MONTHLY Mon Start: 11-25-2024 Consultation [facility] Start: 11-25-2024 End: 11-25-2024 [facility] Start: 11-25-2024 Influenza vaccination [facility] Start: 11-22-2024 End: 11-22-2024 ambulatory 11/22/2024 4:00 PM EDT Infusion Center Hematology/Oncology [address] [place] [address] Wstr, Lab/Port [facility] [address] [place] [address] DC/CADD* Hematology/Oncology Comment on above: DC/CADD* Start: 11-21-2024 End: 11-21-2024 Admission to same day surgery center 11/21/2024 4:15 PM EDT [facility] [address] [place], [place] [address] Tessa Spring MD [address] [place] [address] review 11/07 review MRI/CT General Surgery Comment on above: review 11/07 review MRI/CT Start: 11-21-2024 End: 11-21-2024 ambulatory Hematology/Oncology Comment on above: DC/CADD* Pall med Start: 11-21-2024 End: 11-21-2024 L hrt cath w/njx l ventriculography img s&i LEFT HEART CATH INTRAPROCEDURAL INJECT W/ LEFT VENTRICULOGRAPHY IMAGE SUPERVISION/INTERPRETAT ION ST elevation myocardial infarction (STEMI), unspecified artery (HCC) 11/21/2024 2:13 AM EDT [place] [employer]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 Start: 11-21-2024 [facility] Start: 11-21-2024 Catheterization of left heart [facility] Start: 11-20-2024 Referral to rock lather [facility] Start: 11-20-2024 [facility] Start: 11-20-2024 Catheterization of left heart [facility] Start: 11-20-2024 Chemotherapy care management [facility] Start: 11-20-2024 End: 11-20-2024 ambulatory 11/20/2024 9:30 AM EDT Infusion Center Hematology/Oncology [address] [place] [address] Q2WK FOLFOX(PORT)LAB&OV 11/19* Hematology/Oncology Comment on above: Q2WK FOLFOX(PORT)LAB&OV 11/19* Start: 11-19-2024 End: 11-19-2024 ambulatory Hematology/Oncology Comment on above: CBC/CMP/MG(PORT)OV TODAY* CEA MONTHLY OV(PORT)CHEMO 11/20* ABRAMOVICH Q2WK FOLFOX(PORT)LAB &OV 11/18* MON [place] Start: 11-18-2024 End: 11-18-2024 ambulatory Hematology/Oncology Comment on above: (SO)CBC/CMP(S)/MG(S)(PORT)/OV TODAY* OV(PORT)CHEMO 11/19* ABRAMOVICH Start: 11-14-2024 End: 11-14-2024 ambulatory 11/14/2024 4:00 PM EDT Infusion Center Hematology/Oncology [address] [place] [address] Wstr, Lab/Port [facility] [address] [place] [address] DC/CADD* Hematology/Oncology Comment on above: DC/CADD* Start: 11-12-2024 End: 11-12-2024 ambulatory 11/12/2024 8:30 AM EDT Infusion Center Hematology/Oncology [address] [place] [address] Q2WK FOLFOX(PORT)LAB&OV 11/11* Hematology/Oncology Comment on above: Q2WK FOLFOX(PORT)LAB&OV 11/11* Start: 11-11-2024 End: 11-11-2024 Admission to same day surgery center 11/11/2024 10:30 AM EDT - 11/11/2024 12:00 PM EDT Surgery [facility] [address] [place] [address] [place], Radiology PROVIDER TO SCHEDULE RAD AT [place] INSERTION PORT VENOUS ACCESS ADULT [facility] Comment on above: INSERTION PORT VENOUS ACCESS ADULT Start: 11-11-2024 End: 11-11-2024 Insj tunneled ctr vad w/subq port age 4 yr/> INSERTION PORT VENOUS ACCESS ADULT Adenocarcinoma of cecum (HCC) 11/11/2024 10:30 AM EDT ME IR Start: 11-11-2024 Subsequent hospital visit by physician 11/11/2024 10:30 AM EDT Hospital Encounter [facility] [address] [place] [address] [place] [address] [facility] , [address] [address] Adenocarcinoma of cecum (HCC) [C18.0] [facility] Comment on above: Adenocarcinoma of cecum (HCC) [C18.0] Start: 11-11-2024 End: 11-11-2024 ambulatory Hematology/Oncology Comment on above: CBC/CMP/MG(PORT)OV TODAY* CEA MONTHLY OV(PORT)LAB EARLY/CH EMO 11/12* ZULEMA Start: 11-09-2024 Complete blood count [facility] Start: 11-08-2024 Patient discharge [facility] Start: 11-08-2024 End: 11-08-2024 ambulatory Hematology/Oncology Comment on above: DC/CADD* HYDRATION* Start: 11-07-2024 Application of intermittent pneumatic compression device [facility] Start: 11-07-2024 Chemotherapy care management [facility] Start: 11-07-2024 Following clinical pathway protocol [facility] Start: 11-07-2024 Venous catheter care management [facility] Start: 11-07-2024 Assessment of risk of venous thromboembolism [facility] Start: 11-07-2024 Enteric precautions [facility] Start: 11-07-2024 Inhalation therapy procedure [facility] Start: 11-07-2024 Insertion of catheter into peripheral vein [facility] Start: 11-07-2024 Providing care according to standard [facility] Start: 11-07-2024 Provision of activity privileges [facility] Start: 11-07-2024 [facility] Start: 11-07-2024 MRI of abdomen with contrast MRI Abd WITH and W/O Contrast [facility] Start: 11-07-2024 Verification routine [facility] Start: 11-07-2024 Admission procedure [facility] Start: 11-07-2024 Hospital admission, emergency, from emergency room, medical nature [facility] Start: 11-07-2024 Chemotherapy care management [facility] Start: 11-07-2024 Consultation [facility] Start: 11-07-2024 Patient referral to dietitian [facility] Start: 11-06-2024 End: 11-06-2024 ambulatory 11/06/2024 9:30 AM EDT Infusion Center Hematology/Oncology [address] [place] [address] START Q2WK FOLFOX(PORT)LAB&OV 11/06* Hematology/Oncology Comment on above: START Q2WK FOLFOX(PORT)LAB&OV 11/06* Start: 11-05-2024 End: 11-05-2024 ambulatory Hematology/Oncology Comment on above: CBC/CMP/QMO CEA(PORT)OV TODAY* CEA MONTH LY OV(PORT)CHEMO 11/06* ZULEMA Start: 10-31-2024 End: 10-31-2024 ambulatory 10/31/2024 4:00 PM EDT Infusion Center Hematology/Oncology [address] [place] [address] Wstr, Lab/Port [facility] [address] [place] [address] DC/CADD* Hematology/Oncology Comment on above: DC/CADD* Start: 10-29-2024 End: 10-29-2024 ambulatory 10/29/2024 9:00 AM EDT Infusion Center Hematology/Oncology [address] [place] [address] Q2WK FOLFOX(PORT)LAB&OV 10/28* Hematology/Oncology Comment on above: Q2WK FOLFOX(PORT)LAB&OV 10/28* Start: 10-28-2024 End: 10-28-2024 ambulatory Hematology/Oncology Comment on above: CBC/CMP/MG(PORT)OV TODAY* CEA MONTHLY OV(PORT)LAB EARLY/CH EMO 10/29* SADIACONORJuan J Start: 10-24-2024 End: 10-24-2024 Admission to same day surgery center 10/24/2024 11:30 AM EDT [facility] [address] [place] [address] Tessa Spring MD [address] [place] [address] f/u General Surgery Comment on above: f/u Start: 10-23-2024 [facility] Start: 10-21-2024 End: 10-21-2024 Admission to same day surgery center 10/21/2024 11:00 AM EDT - 10/21/2024 12:00 PM EDT Surgery [place] [address] Romelia Gary MD [address] [place], [place] [id number] INSERTION PORT VENOUS ACCESS ADULT [facility] Comment on above: INSERTION PORT VENOUS ACCESS ADULT Start: 10-21-2024 End: 10-21-2024 Insj tunneled ctr vad w/subq port age 4 yr/> INSERTION PORT VENOUS ACCESS ADULT Adenocarcinoma of cecum (HCC) 10/21/2024 11:00 AM EDT SP IR Start: 10-21-2024 Subsequent hospital visit by physician 10/21/2024 11:00 AM EDT Hospital Encounter [place] [address] Romelia Gary MD [address] [place] [address] Adenocarcinoma of cecum (HCC) [C18.0] [facility] Comment on above: Adenocarcinoma of cecum (HCC) [C18.0] Start: 10-17-2024 End: 10-17-2024 ambulatory 10/17/2024 4:00 PM EDT [facility] Center Hematology/Oncology [address] [place] [address] Wstr, Lab/Port [facility] [address] [place] [address] DC/CADD* Hematology/Oncology Comment on above: DC/CADD* Start: 10-15-2024 End: 10-15-2024 ambulatory Hematology/Oncology Comment on above: STRAIGHTBACK CBC/CMP/START Q2WK FOLFOX(P ORT) CBC/CMP(PORT)START Q 2WK FOLFOX* Start: 10-10-2024 End: 10-10-2024 ambulatory 10/10/2024 2:00 PM EDT Visit (SP) Office Hematology/Oncology [address] [place] [address] Jimmie Poole MD [address] [place] [address] OV-PT REQUESTED TO SEE PROV BEFORE STARTING TREATMENT Hematology/Oncology Comment on above: OV-PT REQUESTED TO SEE PROV BEFORE START ING TREATMENT Start: 10-10-2024 End: 10-10-2024 Admission to same day surgery center 10/10/2024 12:00 PM EDT - 10/10/2024 1:30 PM EDT Surgery [facility] [address] [place] [address] [place] [address] [facility] , [address] [address] INSERTION PORT VENOUS ACCESS ADULT [facility] Comment on above: INSERTION PORT VENOUS ACCESS ADULT Start: 10-10-2024 End: 10-10-2024 Insj tunneled ctr vad w/subq port age 4 yr/> INSERTION PORT VENOUS ACCESS ADULT Adenocarcinoma of cecum (HCC) 10/10/2024 12:00 PM EDT ME IR Start: 10-10-2024 Subsequent hospital visit by physician 10/10/2024 12:00 PM EDT Hospital Encounter [facility] [address] [place] [address] [place] [address] [facility] , [address] [address] Adenocarcinoma of cecum (HCC) [C18.0] [facility] Comment on above: Adenocarcinoma of cecum (HCC) [C18.0] Start: 10-02-2024 End: 10-02-2024 ambulatory Hematology/Oncology Comment on above: CHEMO ED CHEMO ED- FOLFOX* Start: 10-01-2024 End: 12-31-2024 CBC panel - Blood by Automated count COMPLETE BLOOD COUNT Lab STAT Adenocarcinoma of cecum (HCC) Expected: 10/01/2024, Expires: 12/31/2024 [facility] Work Phone: Comment on above: Expected: 10/01/2024, Expires: Start: 10-01-2024 End: 12-31-2024 PT panel - Platelet poor plasma by Coagulation assay PROTHROMBIN TIME Lab STAT Adenocarcinoma of cecum (HCC) Expected: 10/01/2024, Expires: 12/31/2024 [facility] Comment on above: Expected: 10/01/2024, Expires: Start: 09-30-2024 End: 09-30-2024 Specialty Pharmacy 09/30/2024 9:15 AM EDT Specialty Pharmacy [facility] [place] [address] Pharmacist, Specialtygroup [address] [place] [address] [place] [address] Refill - Capecitabine (21DS) - [...] EDT Specialty Pharmacy [facility] [address] [place] [address] Pharmacist, Specialty[facility] [address] [place] [address] [place] [address] Refill - Capecitabine (21DS) - Cycle resume? [...] EDT Visit (SP) Office Hematology/Oncology [address] [place], [place] [phone] Jimmie Poole MD [address] [place], [place] [id number] OV* Hematology/Oncology Comment on above: OV* Start: 09-20-2024 End: 09-20-2024 ambulatory 09/20/2024 11:00 AM EDT [facility] [address] [place] [address] Edwardo Valencia, LETI.PROCESS DESCRIPTION WRITER [address] [place] [address] call 09/15 to see if discharged from snf 09/12/24 Mobile Services Comment on above: [phone] call 09/15 to see if discharged fr om snf 09/12/24 mp Start: 09-16-2024 End: 09-16-2024 Patient encounter procedure 09/16/2024 10:30 AM EDT Office Visit General Surgery [address] [address] Tessa Spring MD [address] [place] [address] s/p 6/4 ex lap, mass resection General Surgery Comment on above: s/p 6/4 ex lap, mass resection Start: 09-14-2024 Development of care plan [facility] Start: 09-13-2024 Patient discharge [facility] Start: 09-13-2024 Referral to general surgeon [facility] Start: 09-13-2024 Referral to service [facility] Start: 09-13-2024 [facility] Start: 09-11-2024 End: 09-11-2024 Specialty Pharmacy 09/11/2024 8:00 AM EDT Specialty Pharmacy [facility] [facility] [facility] [address] [place] [address] Pharmacist, Specialtygroup [address] [place] [phone] Refill - Capecitabine (21DS) - Cycle resume? [...] due to surgery Start: 09-10-2024 Seizure precautions [facility] Start: 09-09-2024 End: 09-09-2024 [facility] Start: 09-09-2024 End: 09-09-2024 Patient encounter procedure 09/09/2024 10:30 AM EDT Office Visit General Surgery [address] [place] [address] Tessa Spring MD [address] [place] [phone] s/p 6/4 ex lap, mass resection General Surgery Comment on above: s/p 6/4 ex lap, mass resection Start: 09-05-2024 Development of care plan [facility] Start: 09-05-2024 Contact precautions [facility] Start: 09-05-2024 Developing a treatment plan [facility] Start: 09-04-2024 Provision of activity privileges [facility] Start: 09-04-2024 End: 09-04-2024 [facility] Start: 09-04-2024 Admission procedure [facility] Start: 09-04-2024 Introduction of urinary catheter [facility] Start: 09-04-2024 Measuring intake and output [facility] Start: 09-04-2024 Patient referral to dietitian [facility] Start: 09-04-2024 Referral for physical therapy [facility] Start: 09-04-2024 Referral to occupational therapist [facility] Start: 09-04-2024 Referral to service [facility] Start: 09-04-2024 Vital signs measurements [facility] Start: 09-04-2024 Verification routine [facility] Start: 08-28-2024 End: 08-28-2024 Admission to same day surgery center 08/28/2024 8:30 AM EDT - 08/28/2024 11:45 AM EDT Surgery [facility] Operating Room [address] [place] [address] Tessa Srping MD [address] [place] [address] EXPLORATORY LAPAROTOMY ADULT [facility] Operating Room Comment on above: EXPLORATORY LAPAROTOMY ADULT Start: 08-28-2024 End: 08-28-2024 Exploratory laparotomy celiotomy w/wo biopsy spx EXPLORATORY LAPAROTOMY ADULT Malignant neoplasm of ascending colon (HCC) 08/28/2024 8:30 AM EDT [facility] Start: 08-28-2024 End: 08-28-2024 OPEN EXC/DSTRJ INTRA-ABDL, RETROPERITONEAL, TUMOR/DATA COMMUNICATIONS SOFTWARE CONSULTANT 5 CM OR LESS OPEN EXC/DSTRJ INTRA-ABDL, RETROPERITONEAL, TUMOR/DATA COMMUNICATIONS SOFTWARE CONSULTANT 5 CM OR LESS Malignant neoplasm of ascending colon (HCC) 08/28/2024 8:30 AM EDT [facility] OR Start: 08-28-2024 End: 08-28-2024 Subsequent hospital visit by physician [facility] Operating Room Comment on above: Malignant neoplasm of ascending colon (H CC) [C18.2] Refill - Capecitabin e (21DS) - Cycle resume? -(confirm copay is ok at each fill (may need to pursue BioPlus if copay is high) Holding due to surgery Start: 08-14-2024 End: 08-14-2024 Anesthesia consultation 08/14/2024 2:00 PM EDT PAT Pre Anesthesia [address] [place] [address] 1, [facility] [place] [address] [place] [address] pre - op: 08/28 ex lap Pre Anesthesia Comment on above: pre - op: 08/28 ex lap Start: 08-14-2024 End: 08-14-2024 Patient encounter procedure 08/14/2024 1:00 PM EDT Appointment Cat Scan [address] [place] [address] CT ABD/PEL W IVCON Cat Scan Comment on above: CT ABD/PEL W IVCON Start: 08-07-2024 End: 08-07-2024 Specialty Pharmacy 08/07/2024 7:45 AM EDT Specialty Pharmacy [facility] [address] [place] [address]-[address] [place] [address] Pharmacist, Specialtygroup [address] [place] [address] Refill - Capecitabine (21DS) - C05/21 -(confirm [...] 9:30 AM EDT Office Visit General Surgery [address] [place] [address] Tessa Spring MD [address] [place] [address] est. discuss plan / next steps General Surgery Comment on above: est. discuss plan / next steps Start: 07-31-2024 End: 07-31-2024 ambulatory 07/31/2024 8:30 AM EDT Visit (SP) Office Hematology/Oncology [address] [place] [address] Jimmie Poole MD [address] [place] [address] OV/BIOPSY 07/24* Hematology/Oncology Comment on above: OV/BIOPSY 07/24* Start: 07-24-2024 End: 07-24-2024 Admission to same day surgery center 07/24/2024 9:30 AM EDT - 07/24/2024 10:30 AM EDT Surgery [facility] [address] [facility] [place] [address] [place] [address] [place] [address] BIOPSY, ABDOMINAL MASS, PERCUTANEOUS NEEDLE [facility] Comment on above: BIOPSY, ABDOMINAL MASS, PERCUTANEOUS NEE DLE Start: 07-24-2024 End: 07-24-2024 Bx abdl/retroperitoneal mass prq needle BIOPSY, ABDOMINAL MASS, PERCUTANEOUS NEEDLE Other intra-abdominal and pelvic swelling, mass and lump 07/24/2024 9:30 AM EDT [facility] Start: 07-24-2024 Subsequent hospital visit by physician 07/24/2024 9:30 AM EDT Hospital Encounter [facility] [address] [place] [phone] [place] [address] [place] [address] Other intra-abdominal and pelvic swelling, mass and lump [R19.09] [facility] Comment on above: Other intra-abdominal and pelvic swellin g, mass and lump [R19.09] Start: 07-19-2024 End: 07-19-2024 [facility] Comment on above: CBC/CMP(S)* 4WK OV/EARLY LABS* Start: 07-18-2024 End: 04-24-2025 Specialty Pharmacy 07/18/2024 8:15 AM EDT Specialty Pharmacy [facility] [address] [facility] [address] [place] [address] Pharmacist, Specialtygroup [address] [place] [address] [place] [address] Refill - Capecitabine (21DS) - C04/30 -(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) Expected: 07/17/2024, Expires: 10/16/2024 [facility] Work Phone: Comment on above: Expected: 07/17/2024, Expires: Start: 07-17-2024 End: 10-16-2024 PT panel - Platelet poor plasma by Coagulation assay PROTHROMBIN TIME Lab STAT Other intra-abdominal and pelvic swelling, mass and lump Iron deficiency anemia secondary to inadequate dietary iron intake Seizures (HCC) Severe protein-calorie malnutrition (HCC) Adenocarcinoma of cecum (HCC) Generalized abdominal pain Expected: 07/17/2024, Expires: 10/16/2024 [facility] Comment on above: Expected: 07/17/2024, Expires: Start: 07-17-2024 End: 07-17-2024 ambulatory Christian Rodrigues [facility] Laboratory Comment on above: CBC/CMP(S)* 4WK OV/EARLY LABS* Refill - Capecitabin e (21DS) - C04/30 -(confirm copay is ok at each fill (may need to pursue BioPlus if copay is high) Start: 07-11-2024 End: 07-11-2024 Patient encounter procedure Cat Scan Comment on above: CT ABD/PEL W IVCON Start: 07-11-2024 [facility] Start: 07-11-2024 Chemotherapy care management [facility] Start: 06-26-2024 End: 06-26-2024 Specialty Pharmacy 06/26/2024 8:15 AM EDT Specialty Pharmacy [facility] [address] [place] [address] Pharmacist, Specialtygroup [address] [place] [address] [place], [place] [phone] Refill - Capecitabine (21DS) - C 4/2 (confirm copay is ok at each fill (may need to pursue BioPlus if copay is high) lvm 06/24ge. [facility] Comment on above: Refill - Capecitabine (21DS) - C 4/2 (co nfirm copay is ok at each fill (may need to pursue BioPlus if copay is high) lvm 06/24ge. Start: 06-25-2024 End: 06-25-2024 Nutrition therapy 06/25/2024 10:00 AM EDT Education Nutrition Therapy [address] [place] [address] Jag Lenz, RD [address] [place] [address] Weight loss [R63.4] Nutrition Therapy Comment on above: Weight loss [R63.4] Start: 06-20-2024 End: 06-20-2024 Specialty Pharmacy 06/20/2024 8:00 AM EDT Specialty Pharmacy [facility] [address] [place] [phone] Pharmacist, Specialtygroup [address] [place] [address] [place] [address] Refill - Capecitabine (21DS) - C 4/2 (confirm copay is ok at each fill (may need to pursue BioPlus if copay is high) Check qty when billing rx, having dental work- hold off for 1 week, June 26 new start date, [facility] Comment on above: Refill - Capecitabine (21DS) - C 4/2 (co nfirm copay is ok at each fill (may need to pursue BioPlus if copay is high) Check qty when billing rx, having dental work- hold off for 1 week, June 26 start date, Start: 06-17-2024 End: 06-17-2024 ambulatory [facility] Laboratory Comment on above: (SO)CMP(S)(SO)CBC(S)* 6WK OV/EARLY LABS* 6WK(SO)CMP(S)(SO)CBC (S)* Start: 06-12-2024 End: 06-12-2024 [facility]ty Pharmacy [facility] Comment on above: Refill - Capecitabine (21DS) - C 06/19 (c onfirm copay is ok at each fill (may need to pursue BioPlus if copay is high) - ok to send refill once dose reduced 1500 mg/1000 mg Refill - Capecitabin e (DS) - C 06/19 (confirm copay is ok at each fill (may need to pursue BioPlus if copay is high) Start: 05-27-2024 End: 05-27-2024 [facility] Laboratory Comment on above: (SO)CMP(S)(SO)CBC(S)* 3WK(SO)CMP(S)(SO)CBC (S)* Start: 05-25-2024 Medicare Annual Wellness Visit Medicare Annual Wellness Visit [facility] Start: 05-20-2024 End: 05-20-2024 Specialty Pharmacy 05/20/2024 11:00 AM EST Specialty Pharmacy [facility] [address] [place] [address] [address] [place] [address] Pharmacist, Specialtygroup [address] [place] [address] Refill - Capecitabine (21DS) - C 05/29 (confirm copay is ok at each fill (may need to pursue BioPlus if copay is high) - ok to send refill once dose reduced 1500 mg/1000 mg received [facility] Comment on above: Refill - Capecitabine (21DS) - C / (co nfirm copay is ok at each fill (may need to pursue BioPlus if copay is high) - ok to send refill once dose reduced 1500 mg/1000 mg received Start: 05-13-2024 End: 05-13-2024 Patient encounter procedure 05/13/2024 12:00 PM EST Office Visit Pulmonary Medicine [address] [place] [address] Fe Edmond APRN.PROCESS DESCRIPTION WRITER [address] [place] [address] 3 MONTH F/U Pulmonary Medicine Comment on above: 3 MONTH F/U Start: 05-06-2024 End: 05-06-2024 ambulatory Hematology/Oncology Comment on above: (SO)CBC/CMP(S)* 3WK OV/EARLY LABS* Start: 05-06-2024 End: 05-06-2024 Specialty Pharmacy 05/06/2024 8:45 AM EST Specialty Pharmacy [facility] [address] [place], [place] [id number] [place] [address] Pharmacist, [facility] [address] [place] [address] Refill - Capecitabine (21DS) - C 2/ (confirm copay is ok at each fill (may need to pursue BioPlus if copay is high) - ok to send refill once dose reduced 1500 mg/1000 mg received lvm 05/02 [facility] Comment on above: Refill - Capecitabine (21DS) - C 2/ (c onfirm copay is ok at each fill (may need to pursue BioPlus if copay is high) - ok to send refill once dose reduced 1500 mg/1000 mg received lvm 05/02 Start: 05-03-2024 End: 05-03-2024 Patient encounter procedure 05/03/2024 11:00 AM EST Appointment Cat Scan [address] [place] [address] 3 MONTH SCAN Cat Scan Comment on above: 3 MONTH SCAN Start: 05-01-2024 End: 05-01-2024 Specialty Pharmacy 05/01/2024 7:45 AM EST Specialty Pharmacy [facility] [address] [place] [address] Pharmacist, Specialtygroup [address] [place] [address] [place] [address] Refill - Capecitabine (21DS) - confirm cycle [...] Lung nodules Expected: 04/27/2024 (Approximate), Expires: 04/18/2025 [facility] Work Phone: Comment on above: Expected: 04/27/2024 (Approximate), Expi res: 04/18/2025 Start: 04-22-2024 End: 04-22-2024 Admission to same day surgery center 04/22/2024 4:00 PM EST [facility] General Surgery [address] [facility] [address] [place] [address] Tessa Spring MD [address] [place] [address] Est: CT f/u RLQ Abd pain, fluid collection/ possible abscess General Surgery Comment on above: Est: CT f/u RLQ Abd pain, fluid collecti on/ possible abscess Start: 04-19-2024 End: 04-19-2024 ambulatory Christian Aroldo [facility] Laboratory Comment on above: LABS* OV/EARLY LABS* Start: 04-11-2024 End: 04-11-2024 Patient encounter procedure 04/11/2024 10:30 AM EST Office Visit General Surgery [address] [place] [address] Tessa Spring MD [address] [place] [place] [address] Est: CT f/u RLQ Abd pain, fluid collection/ possible abscess General Surgery Comment on above: Est: CT f/u RLQ Abd pain, fluid collecti on/ possible abscess Start: 04-10-2024 End: 04-10-2024 Specialty Pharmacy 04/10/2024 7:45 AM EST Specialty Pharmacy [facility] [place] [address] Pharmacist, Specialtygroup [address] [place] [address] Refill - Capecitabine (21DS) - confirm cycle start (C~04/17 - confirm copay is ok at each fill (may need to pursue BioPlus if copay is high) [facility] Comment on above: Refill - Capecitabine (21DS) - confirm c ycle start (C~04/17 - confirm copay is ok at each fill (may need to pursue BioPlus if copay is high) Start: 04-08-2024 [facility] Start: 03-27-2024 Advance Directive Discussion Advance Directive Discussion [facility] Start: 03-22-2024 End: 03-22-2024 ambulatory [facility] Laboratory Comment on above: CBC/CMP* 1MO [...] high) Start: 03-19-2024 End: 03-19-2024 [facility] Comment on above: CBC/CMP* 1MO OV/EARLY LABS* Start: 03-15-2024 End: 03-15-2024 Patient encounter procedure Cat Scan Comment on above: CT ABD/PEL W IVCONRight lower quadrant a bdominal pain [R10.31]Specify enteric contrast choice: Start: 03-12-2024 End: 03-12-2024 Nutrition therapy 03/12/2024 10:00 AM EST Education Nutrition Therapy [address] [place] [address] Jag Lenz, RD [address] [facility] [address] Malignant neoplasm of ascending colon (HCC) [C18.2] Nutrition Therapy Comment on above: Malignant neoplasm of ascending colon (H CC) [C18.2] Start: 02-23-2024 End: 02-23-2024 Specialty Pharmacy 02/23/2024 8:00 AM EST Specialty Pharmacy [facility] [place] [address] Pharmacist, Specialtygroup [address] [place] [address] Refill - Capecitabine (21DS) - confirm [...] ambulatory 02/15/2024 11:00 AM EST Results Only [facility] [address] [facility] [address] [facility] Start: 02-13-2024 End: 02-13-2024 Nutrition therapy 02/13/2024 11:00 AM EST Education Nutrition Therapy [address] [place] [id number] Jag Lenz, RD [address] [facility] [address] Malignant neoplasm of ascending colon (HCC) [C18.2] Nutrition Therapy Comment on above: Malignant neoplasm of ascending colon (H CC) [C18.2] Start: 02-07-2024 Advance Directive Discussion Advance Directive Discussion [facility] Start: 02-07-2024 Screening for osteoporosis Bone Density Screening [facility] Start: 02-01-2024 End: 02-01-2024 ambulatory 02/01/2024 10:40 AM EST Visit (SP) Office Hematology/Oncology [address] [place] [address] [place] [address] [place], [place] [phone] Malignant neoplasm of ascending colon (HCC) [C18.2] Hematology/Oncology Comment on above: Malignant neoplasm of ascending colon (H CC) [C18.2] Start: 01-29-2024 End: 01-29-2024 Patient encounter procedure 01/29/2024 10:00 AM EST Office Visit Pulmonary Medicine [address] [place] [address] Fe Edmond APRN.PROCESS DESCRIPTION WRITER [address] [place] [address] Pulmonary Medicine Start: 01-26-2024 End: 01-26-2024 Patient encounter procedure 01/26/2024 8:40 AM EDT Appointment Cat Scan [address] [place] [address] CT chest wo IV con intra-abd and pelvic swelling Cat Scan Comment on above: CT chest wo IV con intra-abd and pelvic swelling Start: 01-25-2024 End: 01-25-2024 Patient encounter procedure 01/25/2024 1:45 PM EDT Office Visit General Surgery [address] [place] [address] Tessa Spring MD [address] [place], [place] [phone] s/p diagnostic lap converted to open ileocecectomy General Surgery Comment on above: s/p diagnostic lap converted to open ile ocecectomy Start: 01-18-2024 End: 01-18-2024 Patient encounter procedure 01/18/2024 10:00 AM EDT Office Visit General Surgery [address] [place], [place] [id number] Tessa Spring MD [address] [place] [address] s/p diagnostic lap converted to open ileocecectomy General Surgery Comment on above: s/p diagnostic lap converted to open ile ocecectomy Start: 01-03-2024 End: 01-03-2024 Admission to same day surgery center 01/03/2024 12:15 PM EDT - 01/03/2024 2:45 PM EDT Surgery [facility] Operating Room [address] [place] [address] Tessa Spring MD [address] [place] [address] LAPAROSCOPY DIAGNOSTIC ABDOMEN, PERITONEUM AND OMENTUM [facility] Operating Room Comment on above: LAPAROSCOPY DIAGNOSTIC [...] physician 01/03/2024 12:15 PM EDT Hospital Encounter [facility] Operating Room [address] [place] [address] Tessa Spring MD [address] [place] [address] Perforated appendix [K35.32] [facility] Operating Room Comment on above: Perforated appendix [K35.32] Start: 01-03-2024 End: 01-03-2024 Unlisted laparoscopy px intestine xcp rectum LAPAROSCOPIC ENTEROTOMY FOR EXPLORATION OF SMALL BOWEL Perforated appendix 01/03/2024 12:15 PM EDT [facility] Start: 01-03-2024 End: 01-03-2024 Admission to same day surgery center 01/03/2024 9:45 AM EDT - 01/03/2024 12:15 PM EDT Surgery [facility] Operating Room [address] [place] [address] Tessa Spring MD [address] [place] [address] LAPAROSCOPY DIAGNOSTIC ABDOMEN, PERITONEUM AND OMENTUM [facility] Operating Room Comment on above: LAPAROSCOPY DIAGNOSTIC [...] physician 01/03/2024 9:45 AM EDT Hospital Encounter [facility] Operating Room [address] [place] [address] Tessa Spring MD [address] [place] [address] Perforated appendix [K35.32] [facility] Operating Room Comment on above: Perforated appendix [K35.32] Start: 01-03-2024 End: 01-03-2024 Unlisted laparoscopy px intestine xcp rectum LAPAROSCOPIC ENTEROTOMY FOR EXPLORATION OF SMALL BOWEL Perforated appendix 01/03/2024 9:45 AM EDT [facility] Start: 12-30-2023 DIABETES SCREEN DIABETES SCREEN [facility] Start: 12-30-2023 Diabetes Screening Diabetes Screening [facility] Start: 12-18-2023 End: 03-18-2024 CBC panel - Blood by Automated count COMPLETE BLOOD COUNT Lab Routine Perforated appendix Expected: 12/18/2023, Expires: 03/18/2024 [facility] Work Phone: Comment on above: Expected: 12/18/2023, Expires: Start: 12-18-2023 End: 03-18-2024 Comprehensive metabolic 2000 panel - Serum or Plasma COMPREHENSIVE METABOLIC PANEL Lab Routine Perforated appendix Expected: 12/18/2023, Expires: 03/18/2024 [facility] Comment on above: Expected: 12/18/2023, Expires: Start: 12-18-2023 End: 03-18-2024 Prealbumin [Mass/volume] in Serum or Plasma PREALBUMIN Lab Routine Perforated appendix Expected: 12/18/2023, Expires: 03/18/2024 [facility] Comment on above: Expected: 12/18/2023, Expires: Start: 12-18-2023 End: 12-18-2023 Patient encounter procedure 12/18/2023 8:00 AM EDT Office Visit Neurological [facility] [address] [place], [place] [phone] Pipe Estevez MD [address] [place] [address] Focal epilepsy [facility] Comment on above: Focal epilepsy Start: 11-26-2023 Covid-19 Vaccine ( season) Covid-19 Vaccine () [facility] Start: 11-26-2023 Covid-19 Vaccine ( season) Covid-19 Vaccine ( season) [facility] Start: 11-26-2023 Influenza vaccination [facility] Start: 11-08-2023 End: 11-08-2023 Patient encounter procedure 11/08/2023 9:40 AM EDT Office Visit Gastroenterology [place] [address] [place] [address] Rossana Brooke PA-C [address] [place] [address] bowel obstruction non op managed, drain removal [facility] Comment on above: bowel obstruction non op managed, drain removal Start: 10-23-2023 End: 01-22-2024 CBC panel - Blood by Automated count COMPLETE BLOOD COUNT Lab Routine Focal epilepsy ([facility]) Expected: 10/23/2023, Expires: 01/22/2024 [facility] Comment on above: Expected: 10/23/2023, Expires: Start: 10-23-2023 End: 01-22-2024 Comprehensive metabolic 2000 panel - Serum or Plasma COMPREHENSIVE METABOLIC PANEL Lab Routine Focal epilepsy ([facility]) Expected: 10/23/2023, Expires: 01/22/2024 [facility] Comment on above: Expected: 10/23/2023, Expires: Start: 10-23-2023 End: 01-22-2024 Valproate [Mass/volume] in Serum or Plasma VALPROIC ACID / DEPAKENE Lab Routine Focal epilepsy ([facility]) Expected: 10/23/2023, Expires: 01/22/2024 [facility] Work Phone: Comment on above: Expected: 10/23/2023, Expires: Start: 10-23-2023 End: 01-22-2024 Valproate Free [Mass/volume] in Serum or Plasma VALPRO AC/DEPAK FREE Lab Routine Focal epilepsy ([facility]) Expected: 10/23/2023, Expires: 01/22/2024 [facility] Comment on above: Expected: 10/23/2023, Expires: Start: 10-23-2023 End: 10-23-2023 Patient encounter procedure 10/23/2023 9:00 AM EDT Office Visit Neurology [address] [place] [address] Christie Hylton MD [address] [facility] [address] [place], [place] [phone] F/U; NOT RESPONDING WELL TO MEDS (HAVING TREMORS) Neurology Comment on above: F/U; NOT RESPONDING WELL TO MEDS (HAVING TREMORS) Start: 10-16-2023 End: 10-16-2023 Patient encounter procedure 10/16/2023 1:30 PM EDT Office Visit Colorectal Surgery [address] [id number] Michael Younger MD [address]olvia dawson ordered Colorectal Surgery Comment on above: referral dr Nolvia dawson ordered Start: 10-12-2023 End: 10-12-2023 Patient encounter procedure [facility] SCAN Comment on above: Inflammatory bowel disease [K52.9] Start: 10-11-2023 End: 01-10-2024 BLOOD TB SCREEN BLOOD TB SCREEN Lab Routine Perforated appendix Expected: 10/11/2023, Expires: 01/10/2024 [facility] Comment on above: Expected: 10/11/2023, Expires: Start: 10-11-2023 End: 01-10-2024 C reactive protein [Mass/volume] in Serum or Plasma C-REACTIVE PROTEIN Lab Routine Intra-abdominal abscess (HCC) Expected: 10/11/2023, Expires: 01/10/2024 [facility] [employer] Work Phone: Comment on above: Expected: 10/11/2023, Expires: Start: 10-11-2023 End: 01-10-2024 Cobalamin (Vitamin B12) [Mass/volume] in Serum or Plasma VITAMIN B12 Lab Routine Perforated appendix Expected: 10/11/2023, Expires: 01/10/2024 [facility] Comment on above: Expected: 10/11/2023, Expires: Start: 10-11-2023 End: 01-10-2024 HIV 1+2 Ab [Presence] in Serum or Plasma by Immunoassay HIV 1/2 COMBO WITH REFLEX TO DIFFERENTIATION Lab Routine Intra-abdominal abscess (HCC) Encounter for screening for human immunodeficiency virus (HIV) Expected: 10/11/2023, Expires: 01/10/2024 [facility] Comment on above: Expected: 10/11/2023, Expires: Start: 10-11-2023 End: 01-10-2024 TPMT PHENOTYPE/ENZYME ACTIVITY TPMT PHENOTYPE/ENZYME ACTIVITY Lab Routine Perforated appendix Expected: 10/11/2023, Expires: 01/10/2024 [facility] Comment on above: Expected: 10/11/2023, Expires: Start: 10-11-2023 End: 10-11-2023 Patient encounter procedure Gastroenterology Comment on above: 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 , 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 Abx R psoas abscess Start: 10-03-2023 End: [...] Focal epilepsy (HCC) Expected: 08/01/2023, Expires: 10/31/2023 [facility] Comment on above: Expected: 08/01/2023, Expires: Start: 08-01-2023 End: 10-31-2023 Comprehensive metabolic 2000 panel - Serum or Plasma COMPREHENSIVE METABOLIC PANEL Lab Routine Focal epilepsy (HCC) Expected: 08/01/2023, Expires: 10/31/2023 [facility] Comment on above: Expected: 08/01/2023, Expires: Start: 08-01-2023 End: 10-31-2023 Valproate [Mass/volume] in Serum or Plasma VALPROIC ACID / DEPAKENE Lab Routine Focal epilepsy (HCC) Expected: 08/01/2023, Expires: 10/31/2023 [facility] Comment on above: Expected: 08/01/2023, Expires: Start: 08-01-2023 End: 10-31-2023 Valproate Free [Mass/volume] in Serum or Plasma VALPRO AC/DEPAK FREE Lab Routine Focal epilepsy (HCC) Expected: 08/01/2023, Expires: 10/31/2023 [facility] Work Phone: Comment on above: Expected: 08/01/2023, Expires: Start: 08-01-2023 End: 08-01-2023 ambulatory 08/01/2023 1:00 PM EDT [facility] [address] [place] [address] Ashly Lange, DEPENDENCY DIRECTOR.PROCESS DESCRIPTION WRITER [address] [place] [address] [facility] Comment on above: [facility] Start: 02-08-2023 Screening for malignant neoplasm of cervix Cervical Cancer Screening [facility] Start: 12-25-2022 Influenza vaccination Influenza Vaccine (#1) [facility] Start: 11-25-2022 Covid-19 Vaccine () Covid-19 Vaccine () [facility] Start: 11-25-2022 Influenza vaccination [facility] Start: 07-21-2022 End: 09-20-2022 CBC panel - Blood by Automated count CBC Lab Routine Focal epilepsy (HCC) Expected: 07/21/2022, Expires: 09/20/2022 [facility] Work Phone: Comment on above: Expected: 07/21/2022, Expires: 3 Start: 07-21-2022 End: 09-20-2022 Comprehensive metabolic 2000 panel - Serum or Plasma COMP METABOLIC PANEL Lab Routine Focal epilepsy (HCC) Expected: 07/21/2022, Expires: 09/20/2022 [facility] Work Phone: Comment on above: Expected: 07/21/2022, Expires: 3 Start: 07-21-2022 End: 09-20-2022 Valproate [Mass/volume] in Serum or Plasma VALPROIC A/DEPAKENE Lab Routine Focal epilepsy (HCC) Expected: 07/21/2022, Expires: 09/20/2022 [facility] Work Phone: Comment on above: Expected: 07/21/2022, Expires: 3 Start: 07-21-2022 End: 09-20-2022 Valproate Free [Mass/volume] in Serum or Plasma VALPRO AC/DEPAK FREE Lab Routine Focal epilepsy (HCC) Expected: 07/21/2022, Expires: 09/20/2022 [facility] Work Phone: Comment on above: Expected: 07/21/2022, Expires: 3 Start: 11-25-2021 Influenza vaccination [facility] Start: 09-17-2021 End: 11-17-2021 Valproate [Mass/volume] in Serum or Plasma VALPROIC A/DEPAKENE Lab Routine 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) Expected: 09/17/2021, Expires: 11/17/2021 [facility] Work Phone: Comment on above: Expected: 09/17/2021, Expires: 2 Start: 07-05-2021 End: 09-04-2021 VALPROIC A/DEPAKENE VALPROIC A/DEPAKENE Lab Routine 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) Expected: 07/05/2021, Expires: 09/04/2021 [facility] Work Phone: Comment on above: Expected: 07/05/2021, Expires: 2 Start: 06-30-2021 COVID-19 VACCINE (4 - Booster for Pfizer series) COVID-19 VACCINE (4 - Booster for Pfizer series) [facility] Start: 04-26-2021 COVID-19 VACCINE (4 - Booster for Pfizer series) COVID-19 VACCINE (4 - Booster for Pfizer series) [facility] Start: 2019 RSV Vaccine (1 - 1-dose 60+ series) RSV Vaccine (1 - 1-dose 60+ series) [facility] Start: 2019 RSV Vaccine (1 - Risk 60-74 years 1-dose series) RSV Vaccine (1 - Risk 60-74 years 1-dose series) [facility] Start: 01-04-2017 End: 01-04-2017 Appointment Appointment [facility] Work Phone: Start: 12-21-2016 End: 12-21-2016 Colonoscopy flx dx w/collj spec when pfrmd Colonoscopy [facility] [employer] Work Phone: Start: 12-21-2016 End: 12-21-2016 Follow Up Appt Other Follow Up Appt Other [facility] [employer] Work Phone: Start: 12-21-2016 End: 12-21-2016 Appointment Appointment [facility] Work Phone: Start: 12-21-2016 End: 12-21-2016 Diagnostic colonoscopy Colonoscopy [facility] Work Phone: Start: 12-21-2016 End: 12-21-2016 Follow Up Appt Other Follow Up Appt Other [facility] [employer] Work Phone: Start: 2009 Pneumococcal Vaccine: 50+ (1 of 1 - PCV) Pneumococcal Vaccine: 50+ (1 of 1 - PCV) [facility] Start: 2009 Shingles (RZV) Vaccine (1 of 2) Shingles (RZV) Vaccine (1 of 2) [facility] Start: 2009 SHINGRIX VACCINE (1 of 2) SHINGRIX VACCINE (1 of 2) [facility] Start: 02-07-2004 Cholesterol [Mass/volume] in Serum or Plasma Cholesterol [facility] Start: 02-07-2004 COLOGUARD (FIT-DNA) COLOGUARD (FIT-DNA) [facility] Start: 02-07-2004 Colonoscopy COLONOSCOPY [facility] Start: 02-07-2004 COLORECTAL CANCER SCREENING COLORECTAL CANCER SCREENING [facility] Start: 02-07-[address] COLONOGRAPHY [facility] Start: 02-07-2004 FECAL OCCULT BLOOD FECAL OCCULT BLOOD [facility] Start: 02-07-2004 Lipid 1996 panel - Serum or Plasma Lipid Screening [facility] Start: 02-07-2004 Lipid panel Lipid Screening [facility] Start: 02-07-2004 LIPID SCREEN LIPID SCREEN [facility] Start: 02-07-2004 Screening for malignant neoplasm of colon [facility] Start: 02-07-2004 SIGMOIDOSCOPY SIGMOIDOSCOPY [facility] Start: 1999 Mammography [facility] Start: 1999 [facility] Start: 1989 HPV TESTING HPV TESTING [facility] Start: 02-07-1980 PAP TESTING PAP TESTING [facility] Start: 02-07-1980 Screening for malignant neoplasm of cervix Pap Smear [facility] Start: 1978 Pneumococcal Vaccine: 50+ (1 of 2 - PCV) Pneumococcal Vaccine: 50+ (1 of 2 - PCV) [facility] Start: 1978 Shingrix Vaccine (1 of 2) Shingrix Vaccine (1 of 2) [facility] Start: 1978 Urine microalbumin profile [facility] Start: 1977 HEPATITIS C SCREENING HEPATITIS C SCREENING [facility] Start: 1977 Hepatitis C screening [facility] Start: 1977 HIV SCREENING HIV SCREENING [facility] Start: 1977 HIV screening HIV Screening [facility] Start: 1974 HIV screening HIV Test [facility] Start: 1965 Pneumococcal vaccination Pneumococcal Vaccine (1 of 2 - PCV) [facility] Start: 1965 Pneumococcal Vaccine: 65+ (1 of 2 - PCV) Pneumococcal Vaccine: 65+ (1 of 2 - PCV) [facility] Start: 1959 Screening for malignant neoplasm of colon Colonoscopy [facility] Anion gap in Serum o r Plasma [facility] Bilirubin measuremen t, urine [facility] Bilirubin measuremen t, urine [facility] BUN/Creatinine ratio [facility] Calcium [Mass/volume ] in Serum or Plasma [facility] Carbon dioxide, tota l [Moles/volume] in Central venous blood [facility] End: 09-25-2025 Carcinoembryonic Ag [Mass/volume] in Serum or Plasma CARCINOEMBRYONIC ANTIGEN Lab Routine Adenocarcinoma of cecum (HCC) Once per month for 12 Occurrences starting 09/25/2024 until 09/25/2025 [facility] Comment on above: Once per month for 12 Occurrences starti ng 09/25/2024 until 09/25/2025 Carcinoembryonic Ag [Mass/volume] in Serum or Plasma CARCINOEMBRYONIC ANTIGEN Lab Routine Adenocarcinoma of cecum (HCC) 11/05/2024 10:20 AM EDT [facility] Work Phone: Carcinoembryonic Ag [Mass/volume] in Serum or Plasma CARCINOEMBRYONIC ANTIGEN Lab Routine Adenocarcinoma of cecum (HCC) 11/18/2024 2:26 PM EDT [facility] Work Phone: Carcinoembryonic Ag [Mass/volume] in Serum or Plasma CARCINOEMBRYONIC ANTIGEN Lab Routine Adenocarcinoma of cecum (HCC) 11/29/2024 11:37 AM EDT [facility] Work Phone: End: 02-12-2025 CBC W Auto Differential panel - Blood COMPLETE BLOOD COUNT AND DIFFERENTIAL Lab STAT Malignant neoplasm of ascending colon (HCC) Once per month for 6 Occurrences starting 02/14/2024 until 02/12/2025 [facility] Work Phone: Comment on above: Once per month for 6 Occurrences startin g 02/14/2024 until 02/12/2025 End: 09-25-2025 CBC W Auto Differential panel - Blood COMPLETE BLOOD COUNT AND DIFFERENTIAL Lab STAT Adenocarcinoma of cecum (HCC) Every other week for 25 Occurrences starting 09/25/2024 until 09/25/2025 [facility] Work Phone: Comment on above: Every other week for 25 Occurrences star ting 09/25/2024 until 09/25/2025 End: 02-12-2025 Comprehensive metabolic 2000 panel - Serum or Plasma COMPREHENSIVE METABOLIC PANEL Lab STAT Malignant neoplasm of ascending colon (HCC) Once per month for 6 Occurrences starting 02/14/2024 until 02/12/2025 [facility] Comment on above: Once per month for 6 Occurrences startin g 02/14/2024 until 02/12/2025 End: 09-25-2025 Comprehensive metabolic 2000 panel - Serum or Plasma COMPREHENSIVE METABOLIC PANEL Lab STAT Adenocarcinoma of cecum (HCC) Every other week for 25 Occurrences starting 09/25/2024 until 09/25/2025 [facility] Comment on above: Every other week for 25 Occurrences star ting 09/25/2024 until 09/25/2025 Creatinine [Mass/vol ume] in Serum or Plasma [facility] End: 04-06-2025 CT Abdomen and Pelvis W contrast IV CT ABD/PEL W IVCON Radiology Routine Right lower quadrant abdominal pain 1 Occurrences starting 03/07/2024 until 04/06/2025 [facility] Work Phone: Comment on above: 1 Occurrences starting 03/07/2024 until 04/06/2025 CT Abdomen and Pelvi s W contrast IV CT ABD/PEL W IVCON Radiology Routine Right lower quadrant abdominal pain 03/15/2024 2:51 PM EST [facility] Work Phone: End: 08-01-2025 CT Abdomen and Pelvis W contrast IV CT ABD/PEL W IVCON Radiology Routine Right lower quadrant abdominal pain 1 Occurrences starting 07/02/2024 until 08/01/2025 [facility] Work Phone: Comment on above: 1 Occurrences starting 07/02/2024 until 08/01/2025 End: 09-04-2025 CT Abdomen and Pelvis W contrast IV CT ABD/PEL W IVCON Radiology Routine Right upper quadrant abdominal pain Intra-abdominal and pelvic swelling, mass and lump, unspecified site 1 Occurrences starting 08/05/2024 until 09/04/2025 [facility] Work Phone: Comment on above: 1 Occurrences starting 08/05/2024 until 09/04/2025 End: 12-29-2025 CT Abdomen and Pelvis W contrast IV CT ABD/PEL W IVCON Radiology Routine Malignant neoplasm of ascending colon (HCC) 1 Occurrences starting 11/29/2024 until 12/29/2025 [facility] Work Phone: Comment on above: 1 Occurrences starting 11/29/2024 until 12/29/2025 End: 12-29-2025 CT Chest W contrast IV CT CHEST W IVCON Radiology Routine Malignant neoplasm of ascending colon (HCC) 1 Occurrences starting 11/29/2024 until 12/29/2025 [facility] Comment on above: 1 Occurrences starting 11/29/2024 until 12/29/[address]25 CT Chest WO contrast CT CHEST WO IVCON Radiology Routine Intra-abdominal and pelvic swelling, mass and lump, unspecified site 01/26/2024 8:54 AM EDT [facility] Work Phone: End: 02-16-2025 CT Chest WO contrast CT CHEST WO IVCON Radiology Routine Intra-abdominal and pelvic swelling, mass and lump, unspecified site 1 Occurrences starting 01/18/2024 until 02/16/2025 [facility] Work Phone: Comment on above: 1 Occurrences starting 01/18/2024 until 02/16/2025 CT Chest WO contrast CT CHEST WO IVCON Radiology Routine Lung nodules 05/03/2024 11:36 AM EST [facility] Work Phone: End: 06-12-2025 CT Chest WO contrast CT CHEST WO IVCON Radiology Routine Lung nodules 1 Occurrences starting 05/13/2024 until 06/12/2025 [facility] Work Phone: Comment on above: 1 Occurrences starting 05/13/2024 until 06/12/2025 End: 11-09-2024 CT Small bowel W contrast PO and W contrast IV CT ENTEROGRAPHY W IVCON Radiology Routine Inflammatory bowel disease Perforated appendix 1 Occurrences starting 10/11/2023 until 11/09/2024 [facility] Work Phone: Comment on above: 1 Occurrences starting 10/11/2023 until 11/09/2024 Erythrocyte mean corpuscular volume determination [facility] Erythrocyte mean corpuscular volume determination [facility] Erythrocyte mean corpuscular volume determination [facility] Glucose [Mass/volume ] in Serum or Plasma [facility] Guidance for biopsy of Abdomen IMAGING GUIDED BIOPSY ABDOMEN/RETROPERITONEAL MASS Radiology Routine Other intra-abdominal and pelvic swelling, mass and lump Ordered: 07/12/2024 [facility] Work Phone: Comment on above: Ordered: 07/12/2024 Hematocrit [Volume Fraction] of Blood [facility] Hematocrit [Volume Fraction] of Blood [facility] Hematocrit [Volume Fraction] of Blood [facility] Hemoglobin [Mass/vol ume] in Blood [facility] Hemoglobin [Mass/vol ume] in Blood [facility] Hemoglobin [Mass/vol ume] in Blood [facility] Hemoglobin [Presence ] in Urine [facility] Hemoglobin [Presence ] in Urine [facility] Leukocytes [#/volume ] in Blood [facility] Leukocytes [#/volume ] in Blood [facility] Leukocytes [#/volume ] in Blood [facility] End: 09-25-2025 Magnesium [Mass/volume] in Serum or Plasma MAGNESIUM Lab STAT Adenocarcinoma of cecum (HCC) Every other week for 25 Occurrences starting 09/25/2024 until 09/25/2025 [facility] Comment on above: Every other week for 25 Occurrences star dora 09/25/2024 until 09/25/2025 Mean corpuscular hemoglobin concentration determination [facility] Mean corpuscular hemoglobin concentration determination [facility] Mean corpuscular hemoglobin concentration determination [facility] Mean corpuscular hemoglobin determination [facility] Mean corpuscular hemoglobin determination [facility] Mean corpuscular hemoglobin determination [facility] Measurement of keton es in urine using dipstick [facility] Measurement of keton es in urine using dipstick [facility] Measurement of renal function [facility] Microscopic urinalysis [facility] Microscopic urinalysis [facility] Neutrophil count [facility] Neutrophil count [facility] Neutrophil count [facility] Neutrophil percent differential count [facility] Neutrophil percent differential count [facility] Neutrophil percent differential count [facility] Organism count, microscopic method [facility] Patient Education [facility] Work Phone: Patient referral [facility] Work Phone: pH of Urine [facility] pH of Urine [facility] Platelets [#/volume] in Blood [facility] Platelets [#/volume] in Blood [facility] Platelets [#/volume] in Blood [facility] Potassium measurement [facility] Red blood cell count [facility] Red blood cell count [facility] Red blood cell count [facility] Red cell distributio n width determination [facility] Red cell distributio n width determination [facility] Red cell distributio n width determination [facility] REFERRAL FOR ADDITIO NAL BIOMARKER AND MOLECULAR TESTING REFERRAL FOR ADDITIONAL BIOMARKER AND MOLECULAR TESTING Lab Routine Adenocarcinoma of cecum (HCC) 09/25/2024 7:50 AM EDT [facility] Serum chloride measurement [facility] Sodium measurement [facility] Specific gravity of Urine [facility] Specific gravity of Urine [facility] Stroke after atrial fibrillation 5 year risk [#] Sun 2003 IR PORTOCATH PLACEMENT Radiology Routine Adenocarcinoma of cecum (HCC) Ordered: 09/25/2024 [facility] Comment on above: Ordered: 09/25/2024 Troponin T.cardiac [Mass/volume] in Serum or Plasma by High sensitivity method [facility] Urea nitrogen [Mass/volume] in Serum or Plasma [facility] Urine blood test [facility] Urine dipstick for glucose [facility] Urine dipstick for glucose [facility] Urine dipstick for leukocyte esterase [facility] Urine dipstick for leukocyte esterase [facility] Urine dipstick for nitrite [facility] Urine dipstick for nitrite [facility] Urine dipstick for protein [facility] Urine dipstick for protein [facility] Urine examination [facility] Urine examination [facility] Urine microscopy: epithelial cells [facility] Urine microscopy: epithelial cells [facility] Urine microscopy: re d cells [facility] Urine Microscopy: wh ite cells [facility] Urobilinogen [Presen ce] in Urine [facility] Urobilinogen [Presen ce] in Urine [facility] White blood cell count [facility] Immunizations Immunization Date Immunization Notes Care Provider Mo bonilla 08-16-2022 tetanus toxoid, reduced diphtheria toxoid, and acellular pertussis vaccine, adsorbed Sheila Walters DMD Work Phone: [facility] 03-01-2021 Pfizer Monovalent (12+ yrs) SARS-COV-2 (COVID-19) vaccine, mRNA, spike protein, LNP, pres. free, 30 mcg/0.3mL dose (WBF=768) Sheila Walters DMD Work Phone: [facility] 07-01-2020 Pfizer Monovalent (12+ yrs) SARS-COV-2 (COVID-19) vaccine, mRNA, spike protein, LNP, pres. free, 30 mcg/0.3mL dose (LVI=302) Sheila Walters DMD Work Phone: [facility] 06-06-2020 Pfizer Monovalent (12+ yrs) SARS-COV-2 (COVID-19) vaccine, mRNA, spike protein, LNP, pres. free, 30 mcg/0.3mL dose (BIB=554) Sheila Nagelnitesh DMD Work Phone: [facility] 01-09-2015 influenza, injectable, quadrivalent, contains preservative Sheila Walters DMD Work Phone: [facility] 01-09-2015 influenza virus vaccine, unspecified formulation Sheila Walters DMD Work Phone: [facility] NEGATED: Highlighted row has not occurred!01-08-2024 influenza, seasonal, injectable, preservative free Mary Moss PROCESS DESCRIPTION WRITER Work Phone: [facility] Comment on above: Deferred: Patient Re fused - Pt. wants prior to discharge. Payers Date Payer Category Payer Self-pay [id number] 2022 Unknown SP/UNINSURED PEN DING FINANCIAL PROGRAM EVALUATION [id number] 2022-[address] [place] [address] Other [id number] 2022 Unknown [id number] 2022 Unknown [id number] 2021 Medicaid [id number] 2021 Medicare [id number]. [id number] 2021 Medicare [id number] 2002 Medicaid [place] MED[place] [id number] 2002-[facility] [phone] [place] [address] Medicaid [id number] 1959 Unknown [id number] 1959 Unknown [id number] [id number] Unknown [id number] 2.16.840.1.189680.3.579.2.462 Unknown [id number] 2.16.840.1.469976.3.579.2.462 Unknown [id number] 2.16.840.1.924786.3.579.2.462 Unknown [id number] 2.16.840.1.954835.3.579.2.462 Unknown [id number] 2.16.840.1.570709.3.579.2.462 Unknown [id number] 2.16.840.1.467719.3.579.2.462 Unknown [id number] 2.16.840.1.210817.3.579.2.462 Unknown [id number] 2.16.840.1.615391.3.579.2.462 Unknown [id number] 2.16.840.1.908982.3.579.2.462 Unknown [id number] 2.16.840.1.531284.3.579.2.462 Unknown [id number] 2.16.840.1.687138.3.579.2.462 Unknown [id number] 2.16.840.1.827952.3.579.2.462 Unknown [id number] 2.16.840.1.951359.3.579.2.462 Unknown [id number] 2.16.840.1.403077.3.579.2.462 Unknown [id number] 2.16.840.1.460229.3.579.2.462 Unknown [id number] 2.16.840.1.816312.3.579.2.462 Unknown [id number] 2.16.840.1.328031.3.579.2.462 Unknown [id number] [id number] Social History Date Type Detail Facility Start: 05-03-2019 End: 12-17-2024 Tobacco smoking status NHIS Ex-smoker [facility] Start: 05-03-2019 End: 06-17-2024 Tobacco use and exposure Smokeless tobacco non-user [facility] Start: 1960 Sex Assigned At Not on file [facility] Start: 07-24-2020 End: 05-13-2024 Tobacco smoking status [facility] Unknown if ever smoked [facility] Start: 11-06-[address] [facility] Start: 11-06-[address] [facility] Start: 11-06-[address] [facility] Start: 07-24-[address] [facility] Start: 1960 Sex Assigned At Female [facility] Start: 1977 End: 03-27-1995 History of tobacco use Current smoker [facility] Start: 05-03-2019 End: 09-18-2023 Gender identity Not on file [facility] Start: 05-03-2019 End: 09-18-2023 History of Social function [facility] Start: 05-28-2018 Adult Depression Screening Assessment 2 [facility] (I/We) worried claudio er (my/our) food would run out before (I/we) got money to buy more. Never true [facility] Work Phone: Start: 10-03-2023 End: 12-18-2023 Alcohol intake Current drinker of alcohol (finding) [facility] Start: 10-03-2023 Alcohol Comment daily [facility] Start: 1977 End: 03-27-1995 History of tobacco use Cigarette Smoker [facility] History of tobacco use Passive smoker [facility] Start: 12-28-2023 End: 12-03-2024 Alcoholic beverage intake Ex-drinker (finding) [facility] Start: 12-28-2023 Alcohol Comment sober, quit 3 years ago [facility] Has the [employer], oil, or water company threatened to shut off services in your home in past 12Mo No [facility] Start: 07-11-2024 Sex Female (finding) [place] [facility] [place] [employer], oil, or water company threatened to shut off services in your home in past 12Mo Yes [facility] (I/We) worried wheth er (my/our) food would run out before (I/we) got money to buy more. Sometimes true [facility] Medical Equipment Procedure Code Equipment Code Equipment [...] Plastic 8f Chronoflex Catheter With Kit - [id number] Start: 10-21-2024 CENTER SCREW FDA Start: [...] 11-06-2019 CONENTRIC GLENOSPHERE FDA Sta rt: 11-06-2019 LATOYA BURDICK 1.6MM BEADED CABLE FDA Start: 11-06-2019 GLENOID [...] Facility 11-08-2024 Functional status Up ad salma [facility] Work Phone: 09-13-[address] [facility] Work Phone: 09-12-[address] [facility] Work Phone: 08-21-2024 Are you deaf, or do you have serious difficulty hearing No 08/21/2024 1:20 PM Felicia Galan, REAL No [facility] 08-21-2024 Are you blind, or do you have serious difficulty seeing, even when wearing glasses No 08/21/2024 1:20 PM Felicia Galan, REAL No [facility] 08-21-2024 Do you have serious difficulty walking or climbing stairs No 08/21/2024 1:20 PM Felicia Galan, REAL No [facility] 08-21-2024 Do you have difficul ty dressing or bathing No 08/21/2024 1:20 PM Felicia Galan, REAL No [facility] 08-21-2024 Because of a physica l, mental, or emotional condition, do you have difficulty doing errands alone such as visiting a physician's office or shopping No 08/21/2024 1:20 PM EDT Felicia Castro RN No [facility] 01-08-2024 Are you deaf, or do you have serious difficulty hearing No 01/08/2024 1:30 PM EDT Angel Tompkins, REAL No [facility] 01-08-2024 Are you blind, or do you have serious difficulty seeing, even when wearing glasses No 01/08/2024 1:30 PM EDT Angel Tompkins, RN No [facility] 01-08-2024 Do you have serious difficulty walking or climbing stairs No 01/08/2024 1:30 PM EDAngel Matos, RN No [facility] 01-08-2024 Do you have difficul ty dressing or bathing No 01/08/2024 1:30 PM Angel Beck, RN No [facility] 01-08-2024 Because of a physica l, mental, or emotional condition, do you have difficulty doing errands alone such as visiting a physician's office or shopping Yes 01/08/2024 1:30 PM Angel Beck, RN Yes [facility] 02-01-2019 Are you deaf, or do you have serious difficulty hearing No 02/01/2019 11:10 AM Jenna Lemons RN No [facility] 02-01-2019 Are you blind, or do you have serious difficulty seeing, even when wearing glasses No 02/01/2019 11:10 AM Jenna Lemons RN No [facility] 02-01-2019 Do you have serious difficulty walking or climbing stairs No 02/01/2019 11:10 AM Jenna Lemons RN No [facility] 02-01-2019 Do you have difficul ty dressing or bathing No 02/01/2019 11:10 AM Jenna Lemons RN No [facility] 02-01-2019 Because of a physica l, mental, or emotional condition, do you have difficulty doing errands alone such as visiting a physician's office or shopping No 02/01/2019 11:10 AM Jenna Lemons RN No [facility] Mental Status Date Assessment Result Facility 11-20-2024 Cognitive function Voice/Name [facility] Work Phone: 11-08-2024 Cognitive function Voice/Name [facility] Work Phone: 09-13-2024 Cognitive function Voice/Name [facility] Work Phone: 08-21-2024 Because of a physica l, mental, or emotional condition, do you have serious difficulty concentrating, remembering, or making decisions No 08/21/2024 1:20 PM EDT Felicia Castro, REAL No [facility] 01-08-2024 Because of a physica l, mental, or emotional condition, do you have serious difficulty concentrating, remembering, or making decisions Yes 01/08/2024 1:30 PM EDT Angel Tompkins RN Yes [facility] 02-01-2019 Because of a physica l, mental, or emotional condition, do you have serious difficulty concentrating, remembering, or making decisions No 02/01/2019 11:10 AM EST Jenna Espino RN No [facility] Clinical Notes 01-29-2019 to 01-29-2025 Telephone Encounter - Kate Castillo RN - 12/06/2024 2:44 PM EDTTelephone Encounter - Kate Castillo RN - 12/06/2024 2:44 PM EDTTelephone Encounter - Christina Leach - 12/05/2024 11:22 AM EDT Note Date & Type Note Facility 01-29-2025 Note HNO ID: [id number] Author: WINTER RAO RN Service: ? Author Type: Registered Nurse Type: Progress Notes Filed: 01/29/2025 13:21 Note Text: Pt stated no changes to assessment from OV yesterday. Winter Rao RN [facility] 01-28-2025 Note [facility] 01-21-2025 Note [facility] 01-17-2025 Note HNO ID: [id number] Author: JAG LENZ RD Service: ? Author Type: Registered Dietitian Type: Progress Notes Filed: 01/24/2025 06:44 Note Text: Pt did not appear for appointment. [facility] 01-07-2025 Note [facility] 12-31-2024 Note [facility] 12-27-2024 Note [facility] 12-26-2024 Note [facility] 12-24-2024 Note [facility] 12-17-2024 Radiology Diagnostic study note [facility] 12-13-2024 Note [facility] 12-06-2024 Telephone encounter Note Spoke with pharmacy at [facility]. Unable to d/c Rx for klor-con pills. Pharmacist states that patient can put a tablet in 6-8 oz of water and it will dissolve. Not all will but these do. Will keep original Rx as is. Judy Castillo RN [facility] 12-06-2024 Miscellaneous Notes Spoke with pharmacy at [facility]. Unable to d/c Rx for klor-con pills. [...] patient Christina Hany documented in this encounter [facility] 12-06-[address] Poole reviewed BMP. K 3.2 Rx for Klor-Con 20mEq pended for review/sign. Judy Castillo RN [facility] 12-05-2024 Telephone encounter Note 9:00 was not available on port schedule. Called patient and scheduled for 10. [facility] Work Phone: 12-05-2024 Telephone encounter Note Call to patient and aware. She will come in tomorrow around 9am to have lab drawn. Order pended. Judy Castillo RN [facility] 12-05-2024 Telephone encounter Note Per Dr. Poole, check stat potassium tomorrow am, 12/06/24. Will assess for prescription need. Judy Castillo RN [facility] 12-05-2024 Telephone encounter Note Patient called back and was advised of the below. Her response is no she isn't taking anything and is requesting a Gummy prescription due to pills being so large and they might be cheaper. Please advise patient Christina Hany [facility] 12-03-2024 Note [facility] 12-03-2024 History of Presen t illness Narrative PALLIATIVE MEDICINE PROGRESS NOTE SERVICE DATE: December 03, 2024 IDENTIFICATION AND INTRODUCTION: Lakesha Koch is a 64 year old female This visit took place Virtually; I have communicated my name and active licensure. The patient's identity and physical location were verified at the time of this visit. The patient or their legal pharmaceutical representative has been informed of the risks [...] oxaliplatin alone per Dr. Poole. Seen by [facility] on 09/20 Being seen today in follow [...] caring at home Sister going back to [place] this week. Dad is local and lots of good friends around. Has spoken to social work at treatment. Has someone coming in for cleaning. Bianka did a spreadsheet for the medications. REVIEW OF SYSTEMS: Review of Systems Modified ESAS ([place] Symptom Assessment Scale) Information Provided By: Patient [...] activity was identified. 12/03/2024 by Kristi Barroso APRN.PROCESS DESCRIPTION WRITER Urine Screen Lab Results Component Value Date UAMPH Negative 09/09/2023 UBARB2 Negative 09/09/2023 UBENZ Negative 09/09/2023 UCOC2 Negative 09/09/2023 UOPI Negative 09/09/2023 UOXYC Negative 09/09/2023 UPCP Negative 09/09/2023 UTHC Preliminary positive (A) 09/09/2023 UETOH <11 09/09/2023 Urine Panel: No results found for: UQCANN, UQBNZL, PZD7SJF, UQAMPH, UQMAMP, UQBUPRE, UQNORBUP, UQMTHD, UQEDDP, UQTRAM, [...] may have been partially generated using the [employer] voice recognition system. While every effort was made to correct voice recognition errors, kindly be aware that some errors may occasionally occur. documented in this encounter [facility] 11-29-2024 Note [facility] 11-29-2024 History of Presen t illness Narrative [...] 09-25-24 follow up, post debulking. CT at [place] September 13, 2024 looks ok, report being pursued 10-10-24 follow up, she pushed her appointments back to accommodate a trip, we dicussed the importance of timely adjuvant therapy post resection of locally recurrent disease 11-29-24 follow up had chest pain in midst of cycle 2 5FU infusion, went to ER had v fib arrest, transfer to [facility] showed LV focal hypokinesis. Cath negative. Now doing ok. Had another episode diarrhea, so we refilled another course of oral vancomycin. We had a long chat about events and plans moving forward. CLINICAL IMPRESSION: History of stage II colon cancer with high risk features. 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 RECOMMENDATION/PLAN: Plan continue treatment with oxaliplatin alone. Holding avastin given GA. See back cycle after December CT scan. [...] which included preparing to see the patient, [id number] patient care, completing clinical documentation, obtaining and/or reviewing separately obtained history, counseling and educating the patient/family/caregiver, ordering medications, tests, or procedures, communicating with other HCPs (not separately reported), independently interpreting results (not separately reported), communicating results to the patient/family/caregiver, and care coordination (not separately reported). And review of NCCN guidelines Electronically Signed: Jimmie Poole MD November 29, 2024 documented in this encounter [facility] 11-28-2024 Telephone encounter Note Updated Dr. Poole this am and he would like for patient to start the Vancomycin at this time, prophylactically. Judy Castillo RN Call to patient, aware of above. She will have someone picker machine operator RX today. Judy Castillo RN [facility] Work Phone: 11-28-[address] Poole this am and he would like for patient to start the Vancomycin at this time, prophylactically. Judy Castillo RN Call to patient, aware of above. She will have someone picker machine operator RX today. Judy Castillo RN [facility] Coordination FOLLOW-UP NOTE Patient identified [...] November 28, 2024 documented in this encounter [facility] 11-28-2024 Telephone encounter Note Request completed. Thank you. [facility] Work Phone: 11-28-2024 Miscellaneous Notes Request completed. Thank you. No straight back for this patient. Can we call Adrienne 10am 01/10 and see if she is ok to move to a time on 01/09? And, then Lakesha can have that time on Monday? Judy Castillo RN Okay for 01/13 to be a straightback? Dr. Poole is out of office on 01/10. TRAY FILLER's schedules are full. documented in this encounter [facility] 11-28-2024 Telephone encounter Note SOCIAL WORK FOLLOW UP NOTE: CANCER CENTER Date of service: November 28, 2024 Lakesha Koch is being seen for a follow up social work visit. Today's visit includes: family TOPICS ADDRESSED: SW received an email from pt's sister, Bianka, this date. Bianka voices concerns about the following: Help with front loader residential driver, cleaning, meal prep, Help managing medications, Help bathing, Help keeping up with bills - some are already going to collections, Transportation to [facility], What is the possibility of getting her into a senior living facility?, We are gong to ask the surgeon about the possibility of inserting a g-tube, since she is barely eating. This may not be possible because of her previous 2 abdominal surgeries, and because of her weak condition. If it is possible, will this prevent her from being accepted into a senior living facility?, Family is 800 miles away. Would she be able to be transferred to senior living in [place] so she is closer to family? It [...] listed in Care Team tab: Yes EVIE Peterson-S [facility] 11-28-2024 Miscellaneous Notes SOCIAL WORK FOLLOW UP NOTE: CANCER CENTER Date of service: November 28, 2024 Lakesha Koch is being seen for a follow up social work visit. Today's visit includes: family TOPICS ADDRESSED: SW received an email from pt's sister, Bianka, this date. Bianka voices concerns about the following: Help with front loader residential driver, cleaning, meal prep, Help managing medications, Help bathing, Help keeping up with bills - some are already going to collections, Transportation to [facility], What is the possibility of getting her into a senior living facility?, We are gong to ask the surgeon about the possibility of inserting a g-tube, since she is barely eating. This may not be possible because of her previous 2 abdominal surgeries, and because of her weak condition. If it is possible, will this prevent her from being accepted into a senior living facility?, Family is 800 miles away. Would she be able to be transferred to senior living in [place] so she is closer to family? It [...] listed in Care Team tab: Yes EVIE Peterson-S documented in this encounter [facility] 11-28-2024 Telephone encounter Note [facility] Coordination [...] instructions. Kate Castillo RN November 28, 2024 [facility] 11-27-2024 Telephone encounter Note No straight back for this patient. Can we call Adrienne 10am 01/10 and see if she is ok to move to a time on 01/09? And, then Lakesha can have that time on Monday? Judy Castillo RN [facility] Work Phone: 11-27-2024 Telephone encounter Note Okay for 01/13 to be a straightback? Dr. Poole is out of office on 01/10. TRAY FILLER's schedules are full. [facility] 11-27-2024 Telephone encounter Note Will order another 10 day course of oral vancomycin. Jimmie Poole MD November 27, 2024 [facility] 11-27-2024 Miscellaneous Notes Will order another 10 day course of oral vancomycin. Jimmie Poole MD November 27, 2024 Care Coordination Triage Note [facility] Situation: Patient reports Bowel symptoms Background: Colon, [...] 2024 11:13 AM documented in this encounter [facility] 11-27-2024 Telephone encounter Note Care Coordination Triage Note [facility] Situation: Patient reports Bowel symptoms Background: Colon, [...] Castillo RN November 27, 2024 11:13 AM [facility] Work Phone: 11-26-[address] Poole called patient and Rx for Valium and Lopressor sent. Judy Castillo RN [facility] Work Phone: 11-26-[address] Poole called patient and Rx for Valium and Lopressor sent. Juyd Castillo RN Pts. Sister Bianka contacted office, informed that pt. Is having a mental crisis right now . States it's because her sister states she has no idea what the plan of care is going forward. Since hospitalization with cardiac issues, this has increased her anxiety tremendously. Family is in [facility], and pt. Currently is staying with a friend here in [place]. Sister would like to hear from Dr. Poole today and also would like to have physician contact pt. Medical POA is sister Jeanette [phone], Other sister is Bianka [phone] Per discharge summary: On review of cath [...] patient voiced understanding of these risks. Per production staff worker, patient left the unit at 2039 via wheelchair. Pt. Also presented to [facility] Emergency room yesterday with N&V, also Anxiety Given RX for Ativan 0.5 mg x 7 days Che Cortes LPN documented in this encounter [facility] 11-26-[address] Poole called and spoke with patient. Judy Castillo RN [facility] Work Phone: 11-26-[address] Poole called and spoke with patient. Judy Castillo RN documented in this encounter [facility] 11-26-2024 Telephone encounter Note DISCHARGE CALL BACK Today's date: November 26, 2024 Notified of Pt discharge by: Carmen Patient discharged on 11/23/24 from [facility] to Home PATIENT LEFT AMA Primary Cancer Diagnosis: Colon Admitting Diagnosis: STEMI, [place] Discharge Summary/SBAR reviewed: Yes Handoff Discussed with Transitional Implementation Architect: N/A Psychosocial Risk Factors: Yes: Anxious/Depressed Mood [...] No, will send message to social media project manager to follow up with patient. Does the [...] Yes Patient reminded of follow-up appointment with [facility] provider, Dr. Poole on 11/29/24: Yes Discussed Needs follow up with cardiology. She would like to follow up with Dr. Deirdre Cochran at [facility]. Phone number given to call and [...] weekend phone number? YES Kate Castillo RN [facility] 11-26-2024 Miscellaneous Notes DISCHARGE CALL BACK Today's date: November 26, 2024 Notified of Pt discharge by: Carmen Patient discharged on 11/23/24 from [facility] to Home PATIENT LEFT AMA Primary Cancer Diagnosis: Colon Admitting Diagnosis: STEMI, [place] Discharge Summary/SBAR reviewed: Yes Handoff Discussed with Transitional Implementation Architect: N/A Psychosocial Risk Factors: Yes: Anxious/Depressed Mood [...] No, will send message to social media project manager to follow up with patient. Does the [...] Yes Patient reminded of follow-up appointment with [facility] provider, Dr. Poole on 11/29/24: Yes Discussed Needs follow up with cardiology. She would like to follow up with Dr. Deirdre Cochran at [facility]. Phone number given to call and [...] weekend phone number? YES Kate Castillo RN documented in this encounter [facility] 11-26-2024 Telephone encounter Note Pts. Sister Bianka contacted office, informed that pt. Is having a mental crisis right now . States it's because her sister states she has no idea what the plan of care is going forward. Since hospitalization with cardiac issues, this has increased her anxiety tremendously. Family is in [facility], and pt. Currently is staying with a friend here in [place]. Sister would like to hear from Dr. Poole today and also would like to have physician contact pt. Medical POA is sister Jeanette [phone], Other sister is Bianka [phone] Per discharge summary: On review of cath [...] patient voiced understanding of these risks. Per production staff worker, patient left the unit at 2039 via wheelchair. Pt. Also presented to [facility] Emergency room yesterday with N&V, also Anxiety Given RX for Ativan 0.5 mg x 7 days Che Cortes LPN [facility] 11-25-2024 Discharge summary [facility] 11-25-2024 Discharge summary Note Date/Time November 25, 2024 7:17pm [facility] Medical Records Department [address] [place] [address] Emergency Department Summary 11/25/24 MR#: [id number] Acct: [id number] Name: LAKESHA KOCH Rep #:[id number] : 1960 64 From: Demarcus Gauthier MD PCP: Aubrey Lopez TRAY FILLER-C Status:REG ER Location: ED HPI HPI - [...] evaluation she coded and was transferred for [facility] There she was stable and was hospitalized [...] undergoing chemotherapy with Dr. Poole from the [facility]. Prior similar symptoms: Yes Recent Illness/Hospitalization: Yes [...] erythromycin base Allergy TONGUE Verified 11/25/24 16:21 PEELS Family History Sister Melanoma Father Prostate [...] diagnoses. I will have our social media project manager follow-up with the family tomorrow. She may [...] RDW Std Deviation 42.5 RDW Coeff of Uyry 13.2 Plt Count 220 MPV 9.6 Immature Gran % (Auto) 0.600 Neut % (Auto) 64.4 Lymph % (Auto) 19.4 Perry % (Auto) 12.7 H Eos % (Auto) [...] Clarity Clear Urine pH 6.0 Ur Specific [place] 1.015 Urine Protein 30 H Urine Glucose (UA) Normal Urine Ketones Negative Urine Occult Blood Negative Urine Nitrite Negative Urine Bilirubin Negative Urine Urobilinogen Normal Ur Leukocyte Esterase Negative Urine RBC 0 SEEN Urine WBC 0 SEEN Ur Squamous Epith Cells 0-5 SEEN Urine Bacteria 1+ Urine Mucus 1+ Discharge Plan Triage Chief Complaint: Nausea/Vomiting Other Complaint: Anxiety ED Provider: Demarcus Gauthier Dx/Rx/DC Orders Clinical Impression: Nausea, Metastatic [...] - As soon as possible Aubrey Lopez, TRAY FILLER-C [Primary Care Provider] - Activity Restrictions/Additional Instructions: Plenty of fluids and rest. Increase your diet slowly as tolerated. Zofran as needed for nausea. I wrote you Ativan half a milligram as needed for anxiety. Call and follow-up with our social media project manager tomorrow. I will give them your name and hopefully they contact you in the morning. If the Return if you are feeling worse. Print Language: Puerto Rican Disposition Disposition: Home, Self Care What to do if you have Problems For any increased pain, shortness of breath, bleeding, nausea or vomiting, chestpain, or any unexpected problems, contact your Primary Care Provider. Call [facility] ([phone]) or report to the closest Emergency Room. Call 911 if necessary. 11/25/241916 <Electronically signed by Demarcus Gauthier MD> Cosigner Signature (if applicable): CC: Aubrey CURIEL TRAY FILLER-C Jessica ~ Signed [facility] Work Phone: 1(553) 388-608709-01-2025 Hospital Discharge instructionsAdditional Instructions Plenty of fluids and rest. Increase your diet slowly as tolerated. Zofran as needed for nausea. I wrote you Ativan half a milligram as needed for anxiety. Call and follow-up with our social media project manager tomorrow. I will give them your name and hopefully they contact you in the morning. If the Return if you are feeling worse.[facility] Work Phone: 1(855) 661-905108-30-2025 NoteHNO ID: [id number] Author: PATEL GANDARA MD Service: Hospital Medicine Author Type: Physician Type: Progress Notes Filed: 11/23/2024 09:35 Note Text: DEPARTMENT OF HOSPITAL MEDICINE CONSULT PROGRESS NOTE SERVICE DATE: 11/23/2024 SERVICE TIME: 9:15 AM Primary Care Physician: Christie Saenz NP NIGHT AND WEEKEND COVERAGE: [place] COVERAGE: After 7pm, please call cross cover pager #[phone] Subjective INTERVAL HPI: Patient transferred out of [...] reported STEMI and reported Vfib arrest at [facility], with initial complaint of chest pain. [...] cardiogenic shock and sent to CVICU at [facility]. Taken immediately to [facility] with LHC and RHC performed which revealed [...] status post ACLS with reported ST elevation GA at outside hospital after being started on new chemotherapy (fluorouracil + oxaliplatin) on 11/19/24. Potassium 2.6 prior to infusion, replaced with 40mEq IV potassium on 11/19). Left heart catheterization on 11/21/2024 with normal left main, LAD, left circumflex, RCA. TTE on 11/21/2024 with mild LV dilatation (more content not included)...[facility]08-29-2025 NoteHNO ID: [id number] Author: ?, ?, ? Service: Pharmacy Author Type: Kettle Skimmer Type: Plan of Care Filed: 11/22/2024 11:58 Note Text: PHARMACY MEDICATION REVIEW Patient Name: Lakesha Koch : 1960 The following medications were updated within the CLINICAL SYSTEMS EDUCATOR medication list: Medications ADDED to CLINICAL SYSTEMS EDUCATOR medication list HYDROmorphone 2 mg tablet Take 2 mg by mouth two times a day as needed for pain. Medications CHANGED on CLINICAL SYSTEMS EDUCATOR medication list Medications REMOVED from CLINICAL SYSTEMS EDUCATOR medication list acetaminophen (TYLENOL EXTRA STRENGTH) 500 [...] medication history: Yes Medication history completed by: Kettle Skimmer: Gricel Child (Retail Loss Prevention Officer) Source of history: Patient: Reliability of source: Appears reliable, clearly identified: Medication name, Medication dose, Medication route, and Medication frequency, Pharmacy records: e-scripts/dispense report, and [facility] records Medication nonadherence identified: No barriers noted Reconciliation completed: No, pharmacist not yet reviewed Patient interested in Bedside Delivery Services or using OP Pharmacy at discharge? Unable to assess Preferred outpatient pharmacy: [email or web address] [address] [place] [address] - [address] - [phone] Allergies: Erythromycin Intolerance Comment:Mouth soreness and peeling. [...] once daily. Facility-Administered Medications: None Gricel Child (Retail Loss Prevention Officer)[id number] [facility] NoteHNO ID: [id number] Author: GEO CARTER RN Service: Care Management [...] Koch DATE: November 22, 2024 TIME: 11:41 AM[facility]25 NoteHNO ID: [id number] Author: CARLOS COCHRAN MD Service: Cardiovascular Medicine [...] reported Vfib arrest. Per chart review from [facility], patient arrived at the ED and [...] She was responsive therefore held off intubation. child monitor after this showed transient atrial fibrillation with apparent blood pressure dropping into the 70s systolic. Cardio genic shock was suspected and dopamine drip was ordered. Manager [employer] Fund also recommended 180 mg of Brilinta, heparin drip was started at outside hospital. Lowest documented blood pressure at the outside hospital was 79/49. No EKG or telemetry strips were provided by outside hospital. In the ED patient received 500 cc LVB, K 40mEq, aspirin, brilinta, nitro drip, fentanyl once, dopamine, and heparin drip. Patient was taken immediately to [facility] where LHC and RHC were done. Interval [...] Mucous membranes are dry. (more content not included)...[facility]08-28-2025 [facility] History of Present illness Narrative* Tessa Spring MD - 11/21/2024 4:52 PM EDT Images from the original note were not included. Established Patient Visit REASON FOR VISIT Follow up I have communicated my name and active licensure. The patient's identity and physical location wereverified at the time of this visit. Either the patient or their legal pharmaceutical representative has been informed of the risks [...] A-fib and RVR requiring emergent admission to [facility] Where she was resuscitated and put on [...] 5-10 mcg/kg/min (Order-Specific) INTRAVENOUS CONTINUOUS Saadia Gonzales, LETI.PROCESS DESCRIPTION WRITER oxyCODONE IR 5 mg tab(s) (ROXICODONE) 5 mg ORAL q 6 H PRN Noreen Akins DO 5 mg at 11/21/24 1056 dextrose 15 gram/32 mL 15 g (TRUEPLUS) 15 g ORAL PRN Stef Akinsra, DO Or glucagon 1 mg injection 1 mg INTRAMUSCULAR PRN Noreen Akins, DO Or dextrose 10% iv bolus 12.5 g INTRAVENOUS PRN Noreen Akins, DO insulin lispro injection (rapid acting) (ADMElog) SUBCUTANEOUS w MEALS Mable, Noreen, DO CURRENT ALLERGIES ALLERGIES Allergen Reactions Erythromycin [...] requiring medication, no history of angina, CHF, GA, cardiac surgery or stents. Denies rest pain, [...] Level: 5 - High Tessa Spring MD [facility] [place] [facility] November 21, 2024 [...] CT 11/07/24: CT abd/pelvis documented in this encounterChildren[facility]08-28-2025 NoteHNO ID: [id number] Author: REMA BELTRE RN Service: ? Author Type: Registered Nurse Type: Progress Notes Filed: 11/21/2024 17:02 Note Text: New/Est pt: established patient Reason for apt: discuss recent CT 11/07/24: CT abd/pelvisPremier [facility]08-28-2025 NoteHNO ID: [id number] Author: GEO CARTER RN Service: Care Management Author Type: Registered Nurse Type: Care Mgt Initial Assessment Filed: 11/21/2024 12:40 Note Text: CARE MANAGEMENT: ASSESSMENT AND DISCHARGE PLAN SERVICE DATE: November 21, 2024 SERVICE TIME: 12:38 PM PCP: Christie Saenz NP Primary Contact: Extended Emergency Contact Information Primary Emergency Contact: Jeanette Garvin (HCPOA) [facility] Mobile Relation: Sister Secondary Emergency Contact: Brittney Koch (1st alt. HCPOA) Mobile Relation: Sister Admission Status: Inpatient Insurance Provider: MEDICARE A AND B Discharge Planning requested by: Per Department Practice Potential Transition Plans To Be Determined Advance Directives Current Advance Directive: Health Care Power of Group Product Manager In Chart: Yes Up To Date and [...] DME, Other: See Comment ([facility] Current DME Type: Cane Discharge Planning Patient Goal(s): General wellness, Be able to go home [place] Explained: [place] Given: No Reason Not Given: [...] and uses cane as needed. @chemo at [place] and has port. No prior home care. PCP confirmed and has script coverage through Medicare D and uses [facility] in [place]. Dc plan to return home. Cm to follow for needs. SIGNATURE: Geo Carter RN PATIENT NAME: Lakesha oKch DATE: November 21, 2024 TIME: 12:38 [facility]08-28-2025 Telephone encounter Note* Telephone Encounter - Kate Castillo RN - 11/21/2024 11:47 AM EDT Thank you. Dr. Poole aware. Will follow for discharge. Judy Castillo RN [facility] Work Phone: [phone]) 536-515008-28-2025 Miscellaneous Notes* Telephone Encounter - Kate Castillo RN - 11/21/2024 11:47 AM EDT Thank you. Dr. Poole aware. Will follow for discharge. Judy Castillo RN * Telephone Encounter - Fang Myers - 11/21/2024 10:57 AM EDT Patient called to inform that she has been admitted to [facility] for Chest pain and will not bein for DC Cadd today. Appointment canceled. documented in this encounterChildren'S [facility]08-28-2025 Telephone encounter Note * Telephone Encounter - Fang Myers - 11/21/2024 10:57 AM EDT Patient called to inform that she has been admitted to [facility] for Chest pain and will not bein for DC Cadd today. Appointment canceled. [facility] Work Phone: 1(411) 284-778708-28-2025 NoteHNO ID: [id number] Author: CARLOS COCHRAN MD Service: Cardiovascular Medicine [...] reported Vfib arrest. Per chart review from [facility], patient arrived at the ED and [...] She was responsive therefore held off intubation. child monitor after this showed transient atrial fibrillation with apparent blood pressure dropping into the 70s systolic. Cardio genic shock was suspected and dopamine drip was ordered. Manager [employer] also recommended 180 mg of Brilinta, heparin drip was started at outside hospital. Lowest documented blood pressure at the outside hospital was 79/49. No EKG or telemetry strips were provided by outside hospital. In the ED patient received 500 cc LVB, K 40mEq, aspirin, brilinta, nitro drip, fentanyl once, dopamine, and heparin drip. Patient was taken immediately to [facility] where LHC and RHC were done. Interval [...] lower leg: No ed (more content not included)...[facility]08-28-2025 NotePrem[facility]08-28-2025 History of Present illness Narrative* Saadia Gonzales APRN.PROCESS DESCRIPTION WRITER - 11/21/2024 4:13 AM EDT Images from the original note were not included. Critical Care Transport Note Patient Name: Lakesha Koch Service Date: 11/21/2024 Referring Physician: Evy Accepting Physician: [place] Referring Facility: [facility] Accepting Facility: [facility] SUBJECTIVE/CHIEF COMPLAINT: chest pain REASON FOR TRANSPORT: [...] malnutrition/FTT, epilepsy, and depression. She presented to [place] ER on 11/21/2024 for evaluation of chest [...] that time and agreed to proceed with [facility]. Before this was able to be done, patient went into vfib arrest. She was shocked x 2, given amiodarone 150 mg and Epi x 1 before ROSC achieved. She was hypotensive post arrest and startedon dopamine due to concerns for cardiogenic shock. Patient awake and protecting airway post arrest. Cardiology re-evaluated patient again and decided to transfer her to [facility] for cath due to possibility of needing circulatory support device. Patient currently c/o only slight chest pain and nausea. She denies Shortness of Breath or abdominal pain. At this time, the physician managing the patient requested transfer to [facility] for tertiary and/or quaternary services unavailable at the referring facility. Patient condition at time of exam was: Acutely ill and critically ill. Due to the unique circumstances of the patient, it was d etermined that this was the closest, most appropriate facility by referring physician. The physician managing the patient requested the [facility] Critical Care Transport Team transport and treat the patient for the purpose of tertiary care, evaluation, and management of her cardiovascular condition(s). Air medical transport was requested to reduce the cxu-hl-[id number] time, 20 minutes by air vs. 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 The patient was transported to the [facility] by Rotor (Helicopter) for tertiary and/or quaternary evaluation and management of her Emergent cardiovascular condition(s). Upon arrival to the receiving facility, a xjkl-xm-pklz report was given to bedside nursing staff [...] further deterioration of the following condition(s): Acute GA, Hemodynamic compromise, and Arrythmia Cardiovascular impairment, Respiratory impairment, APPRENTICE STYLIST impairment, Shock, and Cardiac Arrest which the patient had and/or had a high probability of suddenly developing. SIGNATURE: Saadia Gonzales APRN.[facility] Acute Care Nurse Practitioner [facility] Critical Care Transport Team [1] Social History [...] Types: Marijuana Comment: unknown documented in this encounterChildren'S Hospital [facility]08-28-2025 Discharge summary [facility] Medical Records Department [address] [place] [address] Emergency Department Summary 11/20/24 MR#: [id number] Acct: [id number] Name: LAKESHA KOCH ILENE Rep #:[id number] : 1960 64 From: Kavin Birch PCP: Aubrey Lopez TRAY FILLER-C Status:REG ER Location: ED HPI History of [...] Method Non-Rebreather Non-Rebreather Oxygen Flow Rate (L/min) 11/21/24 00:55 11/21/24 00:58 11/21/24 01:00 Temperature [...] shock I ordered for dopamine drip. 0005: Manager [employer] Dr. Nichols is in the department evaluating the patient. Brilinta 180 mg recommended and ordered. Heparin drip is running at this time. 0030: I did perform bedside ultrasound reviewed with rock lather, concerns for apical hypokinesis.Currently on dopamine drip [...] Interventional cardiac Dr. Nichols did speak with [facility] with interventialist there Dr. Niño, discussed patient's history concerns. Patient accepted to their facility. [facility] at this time. Heparindrip running, dobutamine drip running. Amio drip running. Awaiting t [place]. Delta troponin even after chest compressions and cardioversion decreased to 82. Re-evaluation: Critical Disposition discussed with patient/family/significant other: Patient Case discussed with consulting clinician: Interventional cardiology, hospitalist, [facility] with cardiology This note was generated with [employer] dictation software. It may contain incorrectwords, spelling, [...] % (Auto) 60.3 Lymph % (Auto) 30.9 Perry % (Auto) 5.7 Eos % (Auto) 1.9 [...] IMPRESSION: No acute cardiopulmonary abnormality. Reading Location: [id number] Chest CTA 11/20/24 23:10 IMPRESSION: No evidence of pulmonary embolism or aortic dissection. Right upper lobe nodule. Follow-up in [address] scan would be helpful for further evaluation. Reading Location: [place] [address] Critical Care Time Critical Care Time: Yes [...] Care Provider: Aubrey Lopez Referrals: Aubrey Lopez, TRAY FILLER-C [Primary Care Provider] - Print Language: Puerto Rican Disposition Disposition: DC/Tx to Another Type of HCF What to do if you have Problems For any increased pain, shortness of breath, bleeding, nausea or vomiting, chestpain, or any unexpected problems, contact your Primary Care Provider. Call [facility] ([phone]) or report tothe closest Emergency Room. Call 911 if necessary. 11/21/24 0482 Cosigner Signature (if applicable): CC: Aubrey CURIEL TRAY FILLER-C Beam ~ Signed [facility]08-28-2025 Radiology Diagnostic study note [facility] Imaging Services [address] [place], [place] [address] CTA Chest W/WO Contrast MR#: [id number] Acct: [id number] Name: LAKESHA KOCH Rep #: [id number] : 1960 F 64 From: Ramón Cedeno MD [facility] TRAY FILLER-C Status: REG ER Study:CTA Chest W/WO Contrast Date of Exam: 11/20/24 Exam# [id number] Ordering Dr: Kavin Adams DO PROCEDURE: CTA [...] be helpful for further evaluation. Reading [facility] CC: Dr. Kavin Adams DO; [facility] TRAY FILLER-C Beam ~ Employee Operations Examiner: Signed [facility]08-27-2025 Radiology Diagnostic study note [facility] Imaging Services [address] [place], [place] [address] Chest 1 View (Portable) MR#: [id number] Acct: [id number] Name: LAKESHA KOCH Rep #: [id number] : 1960 F 64 From: Alex Montero MD PCP: Aubrey Lopez Tana TRAY FILLER-C Status: REG ER Study:Chest 1 View (Portable) Date of Exam: 11/20/24 Exam# [id number] Ordering Dr: Kavin Adams DO PROCEDURE: CHEST 1 VIEW (PORTABLE) 11/20/2024 REASON FOR EXAM: CHEST PAIN TECHNIQUE: Frontal view of the chest. COMPARISON: 08/31/2023. FINDINGS: The heart is normal in size. The lungs are clear. The lungs are clear. Right chest infusion port. Left shoulder arthroplasty. RAD/Chest 1 View (Portable) IMPRESSION: No acute cardiopulmonary abnormality. Reading Location: [facility] CC: Dr. Kavin Adams DO; Aubrey Tana TRAY FILLER-C Jessica ~ Employee Operations Examiner: Signed [facility]08-27-2025 Telephone encounter Note* Telephone Encounter - Cecilio [...] 11/21/2024 in the am block Cecilio Leigh [facility]08-27-2025 Miscellaneous Notes* Telephone Encounter - Cecilio Leigh [...] am block Cecilio Leigh documented in this encounterChildren'S Hospital [facility]08-27-2025 Discharge summary Author Kavin Adams [facility] Note Date/Time November 21, 2024 1: 39am [facility] Medical Records Department [address] [place] [address] Emergency Department Summary 11/20/24 MR#: [id number] Acct: [id number] Name: LAKESHA KOCH Rep #:[id number] : 1960 64 From: Kavin Birch PCP: Aubrey Lopez TRAY FILLER-C Status:REG ER Location: ED HPI History of [...] Method Non-Rebreather Non-Rebreather Oxygen Flow Rate (L/min) 11/21/24 00:55 11/21/24 00:58 11/21/24 01:00 Temperature Temperature Source Pulse Rate 101 H 110 H Respiratory Rate 18 Respiratory Effort Blood Pressure 85/60 L 93/60 Blood Pressure Mean 68 71 Blood Pressure Source Blood Pressure Position Blood Pressure Location Pulse Ox 98 97 Oxygen Delivery Method Non-Rebreather Room Air Oxygen Flow Rate (L/min) 11/21/24 01:12 11/21/24 01:30 Temperature 98 F [...] shock I ordered for dopamine drip. 0005: Manager [employer] Dr. Nichols is in the department evaluating the patient. Brilinta 180 mg recommended and ordered. Heparin drip is running at this time. 0030: I did perform bedside ultrasound reviewed with rock lather, concerns for apical hypokinesis. Currently on dopamine [...] Interventional cardiac Dr. Nichols did speak with [facility] with interventialist there Dr. Niño, discussed patient's history concerns. Patient accepted to their facility. [facility] at this time. Heparindrip running, dobutamine drip running. Amio drip running. Awaiting transport. Delta troponin even after chest compressions and cardioversion decreased to 82. Re-evaluation: Critical Disposition discussed with patient/family/significant other: Patient Case discussed with consulting clinician: Interventional cardiology, hospitalist, [facility] with cardiology This note was generated with [employer] dictation software. It may contain incorrectwords, spelling, [...] % (Auto) 60.3 Lymph % (Auto) 30.9 Perry % (Auto) 5.7 Eos % (Auto) 1.9 [...] IMPRESSION: No acute cardiopulmonary abnormality. Reading Location: [facility] Chest CTA 11/20/24 23:10 IMPRESSION: No evidence of pulmonary embolism or aortic dissection. Right upper lobe nodule. Follow-up in [address] scan would be helpful for further evaluation. Reading Location: [place] [address] Critical Care Time Critical Care Time: Yes Critical care time (excluding procedures): 30-74 minutes, Discussing w/Patient &/or Family/Methods Study Analyst, Discussing w/Consultants, Arranging Admission or Transfer, Performing [...] Care Provider: Aubrey Lopez Referrals: Aubrey Lopez, TRAY FILLER-C [Primary Care Provider] - Print Language: Puerto Rican Disposition Disposition: DC/Tx to Another Type of HCF What to do if you have Problems For any increased pain, shortness of breath, bleeding, nausea or vomiting, chestpain, or any unexpected problems, contact your Primary Care Provider. Call [employer] [facility] ([phone]) or report to the closest Emergency Room. Call 911 if necessary. 11/21/24 0139 <Electronically signed by Kavin Birch> Cosigner Signature (if applicable): CC: Aubrey CURIEL TRAY FILLERNeptali Lopez ~ Signed [facility] Work Phone: 1(545) 362-256908-27-2025 Telephone encounter Note* Telephone Encounter - Kate [...] in with any needs/concerns. Judy Castillo RN [facility] Work Phone: 1([phone]) [phone] Miscellaneous Notes* Telephone Encounter - Kate Castillo [...] PM EDT Care Coordination Triage Note [facility] [place] Situation: Patient reports Other Chest pain vs. [...] Castillo RN - 11/20/2024 12:04 PM EDT [facility] Care Coordination FOLLOW-UP NOTE Patient identified by [...] RN November 20, 2024 documented in this encounterChildren'S Hospital [facility]08-27-2025 Telephone encounter Note * Telephone Encounter - Kate Castillo RN - 11/20/2024 1:37 PM EDT Care Coordination Triage Note [facility] [place] Situation: Patient reports Other Chest pain vs. [...] Castillo RN November 20, 2024 1:37 PM [facility]08-27-2025 Telephone encounter Note* Telephone Encounter - Kate Castillo RN - 11/20/2024 12:04 PM EDT [place] Care Coordination FOLLOW-UP NOTE Patient identified by [...] time Kate Castillo RN November 20, 2024 [facility]08-26-2025 Discharge summary Author Pb Wright [facility] Note Date/Time November 19, 2024 1: 06pm [facility] Physical Therapy [facility] [address] [place] [address] [address] [place] [address] / REHABILITATION SERVICES DISCHARGE SUMMARY MR#: [id number] Acct: [id number] Name: LAKESHA KOCH Rep #: [id number] : 1960 64 From: Pb Wright PT, ATC Referring DrSilvestre: Aubrey KIRBY Beam Status: REG RCR Insurance: MEDICARE PART A B SELF PAY INSURANCE Patient Information Patient Information: ALKESHA KOCH was seen in my office for [...] appropriate by the physician. Thank you! Pb Wright PT, ATC Balance/Gait/Functional tests Balance/Special Test Scores Lower Extremity Functional Score: 31 <Electronically signed by Pb Wright PT, ATC> 11/19/24 1306 CC: Aubrey KIRBY Beam ~ [facility] Signed [facility] Work Phone: 1(945) 777-242208-26-2025 NoteHNO ID: [id number] Author: BRITTANY CARMICHAEL RN Service: ? Author Type: Registered Nurse Type: Progress Notes Filed: 11/19/2024 14:06 Note Text: Dr Poole updated on CMP and potassium. Orders placed for IV replacement. Brittany Carmichael RNPremier Health [facility]08-26-2025 History of Present illness Narrative* Brittany Carmichael RN - 11/19/2024 1:[address] Poole updated on CMP and potassium. Orders placed for IV replacement. Brittany Carmichael RN documented in this encounterChildren'S Hospital [facility]08-26-2025 Discharge summary [facility] Physical Therapy [facility] [place] [address] / REHABILITATION SERVICES DISCHARGE SUMMARY MR#: [id number] Acct: [id number] Name: LAKESHA KOCH Rep #: [id number] : 1960 64 From: Pb Wright PT, [...] Functional Score: 31 11/19/24 1306 CC: Aubrey CURIEL TRAY FILLER-C Beam ~ [facility] Signed [facility]08-25-2025 Telephone encounter Note* Telephone Encounter - Amber Valverde LISW - 11/18/2024 3:30 PM EDT SOCIAL WORK FOLLOW UP NOTE: [facility] Date of service: November 18, 2024 Lakesha Koch is being seen for a follow up social work visit. Today's visit includes: patient and sisterPastora TOPICS ADDRESSED: DOM met with pt and her sister/POA this date. They are inquiring about assistance with transportation and co-pay/premium reimbursement. DOM discussed with pt and sister resources available [...] Pt has Advanced Directives completed, listing Jeanette Bettinger (PH: [phone]) as primary agent and does not wish to make any changes at this time. PLAN: Continue follow up as needed , Provide emotional support to patient/family, and Referral to community resource F/U APPOINTMENT: PRN Assigned DOM listed in Care Team tab: Yes EVIE Peterson-S [facility]08-25-2025 Miscellaneous Notes* Telephone Encounter - Amber Valverde [...] about assistance with transportation and co-pay/premium reimbursement. DOM discussed with pt and sister resources available [...] Advanced Directives completed, listing Jeanette Garvin (PH: [phone]) as primary agent and does not wish to make any changes at this time. PLAN: Continue follow up as needed , Provide emotional support to patient/family, and Referral to community resource F/U APPOINTMENT: PRN Assigned SW listed in Care Team tab: Yes EVIE Peterson-S documented in this encounterChildren'[facility]08-[facility]-2025 [facility]Prem[facility] History of Present illness Narrative* Jimmie Poole MD - 11/18/2024 2:52 PM EDT (Elements copied from my note dated November 05, 2024, have been reviewed and updated where appropriate, and all reflect current assessment and medical decision making from today's encounter, November 18, 2024) HISTORY OF PRESENT ILLNESS: Lakesha oKch is a 64 year old female July [...] 09-25-24 follow up, post debulking. CT at [place] September 13, 2024 looks ok, report being [...] which included preparing to see the patient, [id number] patient care, completing clinical documentation, obtaining and/or reviewing separately obtained history, counseling and educating the patient/family/caregiver, ordering medications, arron ts, or procedures, communicating with other HCPs (not separately reported), independently interpreting results (not separately reported), communicating results to the patient/family/caregiver, and care coordination (not separately reported). And review of NCCN guidelines Electronically Signed: Jimmie Poole MD November 18, 2024 documented in this encounterChildren'S [facility]08-21-2025 Telephone encounter Note * Telephone Encounter - Carrie Beaulieu RN - 11/14/2024 11:39 AM EDT Please review phone encounter from 11/11/24. addressed [facility]08-21-2025 Miscellaneous Notes* Telephone Encounter - Carrie Beaulieu RN - 11/14/2024 11:39 AM EDT Please review phone encounter from 11/11/24. addressed * Telephone Encounter - Brittany Mariscal - 11/13/2024 8:21 AM EDT Patient called and left a message regarding wanting results from MRI/CT return call to [phone] documented in this encounterChildren'S [facility]08-20-2025 Telephone encounter Note * Telephone Encounter - Kate Castillo RN - 11/13/2024 1:36 PM EDT Rx for Valium was sent. Dr. Poole has left for the day. I don't think he knew she needed that? Judy Castillo, RN [facility] Work Phone: [phone]) 912-361408-20-2025 Miscellaneous Notes* Telephone Encounter - Kate Castillo RN - 11/13/2024 1:36 PM EDT Rx for Valium was sent. Dr. Poole has left for the day. I don't think he knew she needed that? Judy Castillo RN * Telephone Encounter - Fang Myers - 11/13/2024 1:31 PM EDT Patient called back requesting prescription for Valium and dilaudid. She uses [facility] in [place]. * Telephone Encounter - Jimmie Poole MD - 11/13/2024 12:52 PM EDT Called patient reviewed findings from [facility]. MRI liver consistent with metastatic cancer. She's had no fevers to suggest abscesses, though she also apparently has c diff. She is on antibiotics for that. We will plan to stick to plans for chemo. We will follow up as scheduled, she will continue treatment for the c diff. Jimmie Poole MD November 13, 2024 documented in this encounterChildren'S Hospital [facility]08-20-2025 Telephone encounter Note * Telephone Encounter - Fang Myers - 11/13/2024 1:31 PM EDT Patient called back requesting prescription for Valium and dilaudid. She uses [facility] in [place]. [facility] Work Phone: [phone]) 262-921508-20-2025 Telephone encounter Note* Telephone Encounter - Kate Castillo RN - 11/13/2024 1:05 PM EDT See phone note dated 11/13/24 Judy Castillo RN [facility] Work Phone: 1(155) 962-175308-20-2025 Miscellaneous Notes* Telephone Encounter - Kate Castillo RN - 11/13/2024 1:05 PM EDT See phone note dated 11/13/24 Judy Castillo RN * Telephone Encounter - Kate Castillo RN - 11/13/2024 9:00 AM EDT Care Coordination Triage Note Cancer [place] Situation: Patient reports Bowel symptoms and Other [...] from c diff. Care coord went to [facility]. * Telephone Encounter - Kate [...] during business hours: Did you contact your Implementation Architect/Provider? Yes, told to present to emergency department Patient with any new symptom issues: No Psychosocial Risk Factors: None FOLLOW UP Patient reminded of her follow-up appointment with [facility] provider, Dr. Poole on 11/18/24: Yes Next Implementation Architect outreach with patient scheduled? NA Discussed Patient [...] and MRI Abdomen. Will fax request to [facility] to push images to [facility] system. [...] to advise she is being admitted to [facility]. She had Cat Scans that [...] go straight to ED. documented in this encounterChildren'S [facility]08-20-2025 Telephone encounter Note * Telephone Encounter - Jimmie Poole MD - 11/13/2024 12:52 PM EDT Called patient reviewed findings from [facility]. MRI liver consistent with metastatic cancer. She's had no fevers to suggest abscesses, though she also apparently has c diff. She is on antibiotics for that. We will plan to stick to plans for chemo. We will follow up as scheduled, she will continue treatment for the c diff. Jimmie Poole MD November 13, 2024 [facility]08-20-2025 Telephone encounter Note* Telephone Encounter - Kate Castillo RN - 11/13/2024 9:00 AM EDT Care Coordination Triage Note Cancer [place] Situation: Patient reports Bowel symptoms and Other [...] Castillo RN November 13, 2024 9:00 AM [facility]08-20-2025 Telephone encounter Note* Telephone Encounter - Brittany Mariscal - 11/13/2024 8:21 AM EDT Patient called and left a message regarding wanting results from MRI/CT return call to [phone] [facility] Work Phone: [phone]) 370-354708-20-2025 Telephone encounter Note* Telephone Encounter - Fang Myers - 11/13/2024 8:04 AM EDT Patient called back this morning asking for results. She also stated she is in a great deal of painand has diarrhea from c diff. Care coord went to [facility]. [facility] Work Phone: [phone]) 900-674508-19-2025 Telephone encounter Note* Telephone Encounter - Carrie Beaulieu RN - 11/12/2024 4:13 PM EDT Please see phone encounter from 11/11/24. Resolved [facility]08-19-2025 Miscellaneous Notes* Telephone Encounter - Carrie Beaulieu RN - 11/12/2024 4:13 PM EDT Please see phone encounter from 11/11/24. Resolved documented in this encounterChildren'S Hospital [facility]08-19-2025 Telephone encounter Note * Telephone Encounter - Kate Castillo RN - 11/12/2024 11:[address] Poole was planning on calling her today but would like Dr. Spring's opinion about scans first. Patient has a call/message into his office as well. Judy Castillo RN [facility]08-19-2025 Telephone encounter Note* Telephone Encounter - Christina Leach - 11/12/2024 11:07 AM EDT Patient called to see when Dr. Poole will be calling her about her results. She is hoping for a call today. [facility]08-18-2025 Telephone encounter Note* Telephone Encounter - Carrie [...] CT and MRI from outside facility (In [facility]) [facility]08-18-2025 Miscellaneous Notes* Telephone Encounter - Carrie Beaulieu [...] CT and MRI from outside facility (In [facility]) * Telephone Encounter - Brittany Mariscal - 11/11/2024 9:45 AM EDT Patient called regarding CT and MRI images in [facility] and would like a refill on pain medication return call to [phone] documented in this encounterChildren'S Hospital [facility]08-18-2025 Telephone encounter Note * Telephone Encounter - [...] stated understanding of all information. Bettye Kenny [facility]08-18-2025 Telephone encounter Note* Telephone Encounter - Brittany Mariscal - 11/11/2024 9:45 AM EDT Patient called regarding CT and MRI images in [facility] and would like a refill on pain medication return call to [phone] [facility] Work Phone: [phone] 570-383408-15-2025 Telephone encounter Note* Telephone Encounter - Rema [...] to check out the scans when available. [facility]08-15-2025 Miscellaneous Notes* Telephone Encounter - Rema Beltre [...] and she can talk to clinical. CB#: [phone] documented in this encounterChildren'S Hospital [facility]08-15-2025 Telephone encounter Note * Telephone Encounter - Kate Castillo RN - 11/08/2024 3:07 PM EDT EMERGENCY ROOM CALL BACK Today's date: November 08, 2024 Patient identified by name and date of . YES Primary Cancer Diagnosis: Colon Reason for Emergency Room Visit: Abdominal pain Time of day presented to Emergency Room 1118am If Mon-Monday during business hours: Did you contact your Implementation Architect/Provider? Yes, told to present to emergency department Patient with any new symptom issues: No Psychosocial Risk Factors: None FOLLOW UP Patient reminded of her follow-up appointment with [facility] provider, Dr. Poole on 11/18/24: Yes Next Implementation Architect outreach with patient scheduled? NA Discussed Patient [...] next outreach appointment? YES Kate Castillo RN [facility]08-15-2025 Telephone encounter Note* Telephone Encounter - Saeed Mancera - 11/08/2024 2:57 PM EDT Patient was in hospital overnight with cdiff and had CT scan which found two spots on liver. She isrequesting Dr. Spring looks at the imaging and she can talk to clinical. CB#: [phone] [facility]08-15-2025 Telephone encounter Note* Telephone Encounter - Kate Castillo RN - 11/08/2024 1:42 PM EDT Reviewed notes, given Vancomycin for C diff infection. Had CT A/P and MRI Abdomen. Will fax request to [facility] to push images to [employer] [facility]. Judy Castillo RN MRI FINDINGS: Liver: Multiple lesions of varying sizes up to 10 mm throughout the liver, demonstrating restricteddiffusion, moderate T2 hyperintensity, T1 hypointensity, thin peripheral enhancement on early arterial phase with slow progressive enhancement on later phases, remaining hypointense relative to liver parenchyma. [facility]08-15-2025 Telephone encounter Note* Telephone Encounter - Christina Leach - 11/08/2024 11:34 AM EDT Patient called to advise she is being discharged. She advised she was given very bad news, is beinggiven antibiotics. Please advise Christina Leach [facility]08-15-2025 Discharge summary [facility] Medical Records Department [address] [place] [id number] Instructions for Home/Discharge Instructions 11/08/24 1131 MR#: [id number] Acct: [id number] Name: LAKESHA KOCH Rep #:[id number] : 1960 64 From: Saroj dao DO PCP: Aubrey Lopez TRAY FILLER-C Status:ADM IN Discharge Instructions DC O2, CPAP, [...] 0RF Referrals / Follow Up: Aubrey Lopez, TRAY FILLER-C [Primary Care Provider] - Disposition Disposition (needs filled in before D/C Order can be placed): Home, Self Care 11/08/24 1133[facility] BATISTA CC: Dr. Annette Mendez MD; Aubrey CURIEL TRAY FILLER-C Jessica ~ Signed [facility]08-15-2025 [facility]08-14-2025 Progress note Author Annette Mendez [facility] Note Date/Time November 07, 2024 8: 28pm [facility] Medical Records Department [address] [place] [address] Progress Note - Hospitalist 11/07/24 1818 MR#: [id number] Acct: [id number] Name: LAKESHA KOCH ILENE Rep #:[id number] : 1960 64 From: Annette Mendez MD PCP: Aubrey Lopez TRAY FILLER-C Status:ADM IN Location: CO3 NV325-7 Hospitalist Note Received page regarding patient's history [...] Cosigner Signature (if applicable): cc: ~* Signed [facility] Work Phone: 1(585) 957-886908-14-2025 Progress note [facility] Medical Records Department [address] [place] [address] Progress Note - Hospitalist 11/07/248 MR#: [id number] Acct: [id number] Name: LAKESHA KOCH Rep #:[id number] : 1960 64 From: Annette Mendez MD PCP: Aubrey Lopez TRAY FILLER-C Status:ADM IN Location: MS3 HF347-8 Hospitalist Note Received page regarding patient's history [...] Cosigner Signature (if applicable): cc: ~* Signed [facility]08-14-2025 History and physical note Author Annette Mendez [facility] Note Date/Time November 07, 2024 3: 29pm [facility] Medical Records Department [address] [place] [address] H&P Exam - Hospitalist 11/07/24 1514 MR#: [id number] Acct: [id number] Name: LAKESHA KOCH Rep #:[id number] : 1960 64 From: Annette Mendez MD PCP: Aubrey Lopez TRAY FILLER-C Status:REG ER Location: ED HPI - General General Date of Admission: 11/07/24 Date of Service: 11/07/24 Chief Complaint: Abdominal pain HPI Narrative LAKESHA KOCH, is a 64-year-old female history of recurrent colon cancer, GERD, recent port placement and first dose of chemotherapy, anxiety who presented [facility] ED 11/07/2024 for abdominal pain. She has a history of [address] [facility] and had port placed and just started [...] sinceovernight, initially went to the out Patient [facility] and they sent her to the ED. Continues to have the pain in the lower abdomen, denies right upper quadrant or upper abdominal pain, denies any fevers at home, no cough, chest pain, shortness of breath. Does report she feels she has had a little bit of a hard time emptying her bladder. [facility] Medical History Seizure disorder Hypotension Marijuana abuse [...] 90.3 H, Lymph % (Auto) 5.6 L, Perry % (Auto) 3.3, Eos % (Auto) 0.0, [...] is seen in the pelvis. Reading Location: [facility]-IR-1 Assessment & Plan Assessment/Plan (1) Abdominal [...] # Recurrent colon cancer -Following with the [facility] -Has Mediport and had her first chemotherapy yesterday -Will continue to follow with them on discharge #Hypokalemia -Replace -Repeat in the AM #Depression/anxiety -Continue home medications #DVT ppx: SCDs Annette Mendez MD Charges/Coding Visit Charges Inpatient E&M: 68192 Init Hosp L2 11/07/24 1529 <Electronically signed by Annette Mendez MD> Cosigner Signature (if applicable): CC: Dr. Annette Mendez MD; Aubrey CURIEL TRAY FILLER-C Jessica~ Signed [facility] Work Phone: 1(243) 718-352508-14-2025 Discharge summary Author Lluvai Vann [facility] Note Date/Time November 07, 2024 3: 12pm [facility] Medical Records Department [address] [place] [address] Emergency Department Summary 11/07/24 MR#: [id number] Acct: [id number] Name: LAKESHA KOCH Rep #:[id number] : 1960 64 From: Lluvia Vann MD PCP: Aubrey Lopez TRAY FILLER-C Status:REG ER Location: ED HPI HPI - [...] nonbloody, nonbilious. Denies diarrhea, dysuria or hematuria. [facility] Medical History Seizure disorder Hypotension Marijuana abuse [...] 90.3 H Lymph % (Auto) 5.6 L Perry % (Auto) 3.3 Eos % (Auto) 0.0 [...] is seen in the pelvis. Reading Location: [place] [address] Discharge Plan Triage Chief Complaint: Abd Pain [...] Care Provider: Aubrey Lopez Referrals: Aubrey Lopez, TRAY FILLER-C [Primary Care Provider] - Print Language: Puerto Rican What to do if you have Problems For any increased pain, shortness of breath, bleeding, nausea or vomiting, chestpain, or any unexpected problems, contact your Primary Care Provider. Call [facility] ([phone]) or report to the closest Emergency Room. Call 911 if necessary. 11/07/24 1512 <Electronically signed by Lluvia Vann MD> Cosigner Signature (if applicable): CC: Aubrey CURIEL TRAY FILLER-C Jessica ~ Signed [facility] Work Phone: 1(970) 807-348708-14-2025 History and physical note [facility] Medical Records Department [address] [place] [address] H&P Exam - Hospitalist 11/07/24 1514 MR#: [id number] Acct: [id number] Name: LAKESHA KOCH ILENE Rep #:[id number] : 1960 64 From: Annette Mendez MD PCP: Aubrey Lopez TRAY FILLER-C Status:REG ER Location: ED HPI - General General Date of Admission: 11/07/24 Date of Service: 11/07/24 Chief Complaint: Abdominal pain HPI Narrative LAKESHA KOCH, is a 64-year-old female history of recurrent colon cancer, GERD, recent port placement and first dose of chemotherapy, anxiety who presented [facility] ED 11/07/2024 for abdominal pain. She has a history of [address] [facility] and had port placed and just started [...] sinceovernight, initially went to the out Patient [facility] and they sent her to the ED. Continues to have the pain in the lower abdomen, denies right upper quadrant or upper abdominal pain, denies any fevers at home, no cough, chest pain, shortness of breath. Does report she feels she has had a little bit of a hard time emptying her bladder. [facility] Medical History Seizure disorder Hypotension Marijuana abuse [...] 90.3 H, Lymph % (Auto) 5.6 L, Perry % (Auto) 3.3, Eos % (Auto) 0.0, [...] is seen in the pelvis. Reading Location: [facility]-1 Assessment & Plan Assessment/Plan (1) Abdominal pain: [...] # Recurrent colon cancer -Following with the [facility] -Has Mediport and had her first chemotherapy yesterday -Will continue to follow with them on discharge #Hypokalemia -Replace -Repeat in the AM #Depression/anxiety -Continue home medications #DVT ppx: SCDs Annette Mendez MD Charges/Coding Visit Charges Inpatient E&M: 81811 Init Hosp L2 11/07/24 2879 Cosigner Signature (if applicable): CC: Dr. Annette Mendez MD; Aubrey CURIEL TRAY FILLER-C Jessica~ Signed [facility]08-14-2025 Discharge summary [facility] Medical Records Department [address] [place] [address] Emergency Department Summary 11/07/24 MR#: [id number] Acct: [id number] Name: LAKESHA KOCH Rep #:[id number] : 1960 64 From: Lluvia Vann MD PCP: Aubrey Lopez TRAY FILLER-C Status:REG ER Location: ED HPI HPI - [...] nonbloody, nonbilious. Denies diarrhea, dysuria or hematuria. [facility] Medical History Seizure disorder Hypotension Marijuana abuse [...] 90.3 H Lymph % (Auto) 5.6 L Perry % (Auto) 3.3 Eos % (Auto) 0.0 [...] is seen in the pelvis. Reading Location: [facility]-1 Discharge Plan Triage Chief Complaint: Abd Pain [...] Care Provider: Aubrey Lopez Referrals: Aubrey Lopez, TRAY FILLER-C [Primary Care Provider] - Print Language: Puerto Rican What to do if you have Problems For any increased pain, shortness of breath, bleeding, nausea or vomiting, chestpain, or any unexpected problems, contact your Primary Care Provider. Call [facility] ([phone]) or report tothe closest Emergency Room. Call 911 if necessary. 11/07/24 1512 Cosigner Signature (if applicable): CC: Aubrey CURIEL TRAY FILLERNeptali Lopez ~ Signed [facility]08-14-2025 Telephone encounter Note* Telephone Encounter - Christina eLach - 11/07/2024 3:05 PM EDT Patient called to advise she is being admitted to [facility]. She had Cat Scans that showed she either hasColitis or Tumors on her liver. Cancelled 11/08 Hydration appointment Christina Leach [facility]08-14-2025 Radiology Diagnostic study note [facility] Imaging Services [address] [place], [place] [address] Abdomen/Pelvis W IV Cont ONLY MR#: [id number] Acct: [id number] Name: LAKESHA KOCH Rep #: [id number] : 1960 F 64 From: Gal Thomas MD PCP: Aubrey Lopez [facility] TRAY FILLER-C Status: REG ER Study:Abdomen/Pelvis W IV Cont ONLY Date of E xam: 11/07/24 Exam# [id number] Ordering Dr: Nitesh Vann MD PROCEDURE: ABDOMEN/PELVIS [...] is seen in the pelvis. Reading Location: [facility]-IR-1 CC: Dr. Lluvia Vann MD; Aubrey [facility] MIRTA Lopez ~ Employee Operations Examiner: Signed [facility]08-14-2025 Telephone encounter Note* Telephone Encounter - Amber Casillas RN - 11/07/2024 10:57 AM EDT Call made to patient's sister (Jeanette) that per Adrienne Bahena CNP patient needs to go to ED d/t abdominal pain. Jeanette will make contact with patient and have her go straight to ED. [facility]08-14-2025 Telephone encounter Note* Telephone Encounter - Kate [...] care and patient verbalizes understanding: Yes Kate Jonathan, RN [facility] Work Phone: 1(922) 885-357008-14-2025 Miscellaneous Notes* Telephone Encounter - Kate Castillo [...] off. Germaine Jennings LPN documented in this encounterChildren'S Hospital [facility]08-14-2025 Telephone encounter Note * Telephone Encounter - [...] get it taken off. Germaine Jennings LPN [facility]08-14-2025 Telephone encounter Note* Telephone Encounter - Alyson Brown RN - 11/07/2024 8:00 AM EDT Pt of heme/onc Dr Poole calling with c/o nausea/vomiting since receiving chemo pump yesterday.Conf to [facility] rolling machine operator automatic for transfer to the office. [facility]08-14-2025 Miscellaneous Notes* Telephone Encounter - Alyson Brown RN - 11/07/2024 8:00 AM EDT Pt of heme/onc Dr Poole calling with c/o nausea/vomiting since receiving chemo pump yesterday.Conf to [facility] rolling machine operator automatic for transfer to the office. documented in this encounterChildren'S Hospital [facility]08-13-2025 NoteHNO ID: [id number] Author: JERRY ELLIS RN Service: ? Author Type: Registered Nurse Type: Progress Notes Filed: 11/06/2024 14:00 Note Text: .[facility]08-13-2025 History of Present illness Narrative* Jerry Ellis RN - 11/06/2024 11:46 AM EDT . documented in this encounterChildren'S [facility]08-12-2025 [facility]Prem[facility]08-12-2025 History of Present illness Narrative* Jimmie Poole [...] 09-25-24 follow up, post debulking. CT at [place] September 13, 2024 looks ok, report being [...] which included preparing to see the patient, [id number] patient care, completing clinical documentation, obtaining and/or reviewing separately obtained history, counseling and educating the patient/family/caregiver, ordering medications, arron ts, or procedures, communicating with other HCPs (not separately reported), independently interpreting results (not separately reported), communicating results to the patient/family/caregiver, and care coordination (not separately reported). And review of NCCN guidelines Electronically Signed: Jimmie Poole MD November 05, 2024 documented in this encounterChildren'S [facility]08-01-2025 Telephone encounter Note * Telephone Encounter - Amber Valverde LISW - 10/25/2024 2:23 PM EDT SOCIAL WORK FOLLOW UP NOTE: [facility] Date of service: October 25, 2024 [...] in Care Team tab: Yes ANG Peterson [facility]08-01-2025 Miscellaneous Notes* Telephone Encounter - Amber Valverde LISW - 10/25/2024 2:23 PM EDT SOCIAL WORK FOLLOW UP NOTE: [facility] Date of service: October 25, 2024 [...] tab: Yes ANG Peterson documented in this encounterChildren[facility]-2025 Telephone encounter Note * Telephone Encounter - Rema Beltre RN - 10/25/2024 1:23 PM EDT Refilled script on 10/22 [facility]08-01-2025 Miscellaneous Notes* Telephone Encounter - Rema Beltre RN - 10/25/2024 1:23 PM EDT Refilled script on 10/22 documented in this encounterChildren'S [facility]07-31-2025 Telephone encounter Note * Telephone Encounter - Rema Beltre RN - 10/24/2024 1:50 PM EDT Patient requested small refill of dilaudid. Pended script for Dr. Spring to sign. [facility]07-31-2025 Miscellaneous Notes* Telephone Encounter - Rema Beltre RN - 10/24/2024 1:50 PM EDT Patient requested small refill of dilaudid. Pended script for Dr. Spring to sign. * Telephone Encounter - Brittany Mariscal - 10/24/2024 12:53 PM EDT Patient called and left a message regarding needing a prescription refill return call to [phone] documented in this encounterChildren'S Hospital [facility]07-31-2025 Telephone encounter Note * Telephone Encounter - Brittany Mariscal - 10/24/2024 12:53 PM EDT Patient called and left a message regarding needing a prescription refill return call to [phone] [facility] Work Phone: 1(819) 977-502807-31-2025 NotePremier Health [facility]07-31-2025 History of Present illness Narrative* Tessa Spring MD - 10/24/2024 12:04 PM EDT Established Patient Visit REASON FOR VISIT Follow up I have communicated my name and active licensure. The patient's identity and physical location wereverified at the time of this visit. Either the patient or their legal pharmaceutical representative has been informed of the risks [...] requiring medication, no history of angina, CHF, GA, cardiac surgery or stents. Denies rest pain, [...] Medical Decision Making Level: 4 - Moderate Samer MD Saw [facility] October 24, 2024 * Rema Beltre RN - 10/24/2024 11:30 AM EDT New/Est pt: established patient Reason for apt: f/u 08/[address] Poole 10/10/24: RECOMMENDATION/PLAN: plan adjuvant FolFOx given these developments. Will see if we can move things up on the schedule. documented in this encounterChildren'S Hospital [facility]07-31-2025 Telephone encounter Note * Telephone Encounter - Rema Beltre RN - 10/24/2024 12:00 PM EDT Questions answered during phone call on 10/24. [facility]07-31-2025 Miscellaneous Notes* Telephone Encounter - Rema Beltre RN - 10/24/2024 12:00 PM EDT Questions answered during phone call on 10/24. documented in this encounterChildren'S Hospital [facility]07-31-2025 NotePrem[facility]07-30-2025 Discharge summary [facility] Medical Records Department [address] [place] [address] Emergency Department Summary 10/23/24 MR#: [id number] Acct: [id number] Name: LAKESHA KOCH Rep #:[id number] : 1960 64 From: Ankit Marsh MD PCP: Aubrey Lopez TRAY FILLER-C Status:REG ER Location: ED HPI History of [...] that shecannot tolerate even sips of water. [facility] Medical History Seizure disorder Hypotension Marijuana abuse [...] erythromycin base Allergy TONGUE Verified 04/08/24 14:38 ABENAELS Family History Sister Melanoma Father Prostate [...] at home and follow-up with her physicians. [place] Zofran at home that she can continue. [...] 74.0 H Lymph % (Auto) 17.9 L Perry % (Auto) 4.8 Eos % (Auto) 2.2 [...] Care Provider: Aubrey Lopez Referrals: Aubrey Lopez, TRAY FILLER-C [Primary Care Provider] - As soon as possible Activity Restrictions/Additional Instructions: Continue your Zofran at home. Clear liquid diet and advance as tolerated. Drink plenty of oral fluids. Return with new or worsening symptoms. Print Language: Puerto Rican Disposition Disposition: Home, Self Care What to do if you have Problems For any increased pain, shortness of breath, bleeding, nausea or vomiting, chestpain, or any unexpected problems, contact your Primary Care Provider. Call [facility] ([phone]) or report tothe closest Emergency Room. Call 911 if necessary. 10/23/24 1135 Cosigner Signature (if applicable): CC: Aubrey CURIEL TRAY FILLER-C Jessica ~ Signed [facility]07-22-2025 Telephone encounter Note* Telephone Encounter - Rema [...] that I can reach out to the correctional treatment specialist provider since Dr. Spring is currently out ofthe office, she stated okay to wait until he returns. Virtual visit scheduled with Dr. Spring on 10/24. Patient understanding and thankful for call. [facility]07-22-2025 Miscellaneous Notes* Telephone Encounter - Rema Beltre [...] that I can reach out to the correctional treatment specialist provider since Dr. Spring is currently out [...] and concerns of pain return call to [phone] documented in this encounterChildren'S Hospital [facility]07-22-2025 Telephone encounter Note * Telephone Encounter - [...] and concerns of pain return call to [phone] [facility] Work Phone: 1(144) 196-893907-18-2025 Telephone encounter Note* Telephone Encounter - Fang Myers - 10/11/2024 2:44 PM EDT Rescheduled and my chart message sent to patient [facility] Work Phone: 1(978) 981-573007-18-2025 Miscellaneous Notes* Telephone Encounter - Fang Myers [...] time. Judy Castillo RN documented in this encounterChildren'S Hospital Of [facility]07-18-2025 Telephone encounter Note * Telephone Encounter - Kate Castillo RN - 10/11/2024 10:58 AM EDT PSS: please reschedule patient's start date now that her port has been moved up to 10/21/24. SEE phone encounter 10/02/24 and 09/25/24. Need OV 8 and hopefully start 11/06/24. Please send Mychart with new start time. Judy Castillo, RN [facility] Work Phone: [phone]) 799-222607-18-2025 Miscellaneous Notes* Allied Health - Priscilla Molina, [...] treatment once it begins. documented in this encounterChildren'S Hospital [facility]07-18-2025 Progress note* Allied Health - Priscilla Molina, [...] to find her treatment once it begins. [facility]07-17-2025 NotePrem[facility]07-17-2025 History of Present illness Narrative* Jimmie Pooel MD - 10/10/2024 2:09 PM EDT (Elements [...] which included preparing to see the patient, [id number] patient care, completing clinical documentation, obtaining and/or reviewing separately obtained history, counseling and educating the patient/family/caregiver, ordering medications, arron ts, or procedures, communicating with other HCPs (not separately reported), independently interpreting results (not separately reported), communicating results to the patient/family/caregiver, and care coordination (not separately reported). And review of NCCN guidelines Electronically Signed: Jimmie Poole MD October 10, 2024 documented in this encounterChildren'S Hospital [facility]07-10-2025 Telephone encounter Note * Telephone Encounter - Christina Leach - 10/03/2024 10:47 AM EDT Rescheduled all appointments as requested Christina Leach [facility]07-10-2025 Miscellaneous Notes* Telephone Encounter - Christina Leach [...] 10/24/24. Judy Castillo RN documented in this encounterChildren'S Hospital [facility]07-09-2025 Telephone encounter Note * Telephone Encounter - Kate Castillo RN - 10/02/2024 3:39 PM EDT Patient will be on vacation from 10/25 - 11/04. Please move C2 from 10/28/24 to OV on 11/05 w/ treatment on 11/06/24. She also needs lab scheduled for 10/24/24. Judy Castillo RN [facility] Work Phone: 1(560) 318-748107-09-2025 NotePremier Health [facility]07-09-2025 History of Present illness Narrative* Kate Castillo RN - 10/02/2024 3:33 PM EDT Patient teaching was completed over the phone. Kate Castillo RN Implementation Architect Pre Chemo Patient identified by name and date of . YES Confirmed date and time for chemotherapy ? YES Other appointments (labs, imaging) discussed? YES Discussed where to park (dancing teacher), charge for parking YES Discussed where to [...] time. Kate Castillo RN documented in this encounterChildren'S Hospital [facility]07-03-2025 Telephone encounter Note * Telephone Encounter - Fang Myers - 09/26/2024 8:37 AM EDT 3 CYCLES ENTERED START EMAIL SENT [facility] Work Phone: 1(443) 398-564607-03-2025 Miscellaneous Notes* Telephone Encounter - Fang Myers - 09/26/2024 8:37 AM EDT 3 CYCLES ENTERED START EMAIL SENT * Telephone Encounter - Christina Leach - 09/25/2024 3:11 PM EDT Chemo Education -SCHEDULED 10/02 Port placement-SCHEDULED 10/10 Start Folfox after port placement CBC/CMP, straight back to start CBC/CMP/Mg/OV with C2 CEA monthly documented in this encounterChildren'S Hospital [facility]07-02-2025 Telephone encounter Note * Telephone Encounter - Ellyn Zhang RN - 09/25/2024 3:38 PM EDT Met with patient and introduced myself. Patient was given a My Journey binder with chemocare information, office contact information, thermometer, and additional chemotherapy resource booklets. Patient aware this nurse will review on scheduled appointment date. Ellyn Zhang RN [facility]07-02-2025 Miscellaneous Notes* Telephone Encounter - Ellyn Zhang RN - 09/25/2024 3:38 PM EDT Met with patient and introduced myself. Patient was given a My Journey binder with chemocare information, office contact information, thermometer, and additional chemotherapy resource booklets. Patient aware this nurse will review on scheduled appointment date. Ellyn Zhang RN documented in this encounterChildren'S Hospital [facility]07-02-2025 Telephone encounter Note * Telephone Encounter - Christina Leach - 09/25/2024 3:11 PM EDT Chemo Education -SCHEDULED 10/02 Port placement-SCHEDULED 10/10 Start Folfox after port placement CBC/CMP, straight back to start CBC/CMP/Mg/OV with C2 CEA monthly [facility]07-02-2025 NotePrem[facility]07-02-2025 History of Present illness Narrative* Jimmie Poole [...] 09-25-24 follow up, post debulking. CT at [place] September 13, 2024 looks ok, report being [...] which included preparing to see the patient, [id number] patient care, completing clinical documentation, obtaining and/or reviewing separately obtained history, counseling and educating the patient/family/caregiver, ordering medications, arron ts, or procedures, communicating with other HCPs (not separately reported), independently interpreting results (not separately reported), communicating results to the patient/family/caregiver, and care coordination (not separately reported). And review of NCCN guidelines Electronically Signed: Jimmie Poole MD September 25, 2024 documented in this encounterChildren'S Hospital [facility]06-27-2025 Instructions* Patient Instructions* Edwardo Valencia APRN.PROCESS DESCRIPTION WRITER - 09/20/2024 12:59 PM EDT Lakesha, It [...] with Dr. Poole on October 26 in [place]. - Follow-up with your surgeon, Dr. Moe, on October 24. - My medical appointment scheduler will contact you to arrange an in-person visit, with me in approximately 4 weeks. Additional instructions: - Call our office 2-3 days before running out of any medications, especially pain medications, to request refills. You can also use nDreams for refill requests. - If you experience any new or worsening symptoms, such as uncontrolled pain, frequent diarrhea, orskin breakdown, please contact our office immediately. Our office number is [phone]. A registered nurse is available to answer your questions, and I will follow up as needed. Thank you for your time today, and I look forward to seeing you in person at our next visit. Edwardo Valencia CNP documented in this encounterChildren'S Hospital [facility]06-27-2025 History of Present illness Narrative* Edwardo Valencia APRN.PROCESS DESCRIPTION WRITER - 09/20/2024 7:00 AM EDT Images from the original note were not included. PALLIATIVE MEDICINE AT HOME INITIAL CONSULT SERVICE DATE: 09/20/2024 Referring Physician: Christie Saenz [address] [facility] [address] Primary Physician: Christie Saenz NP IDENTIFICATION AND INTRODUCTION: Lakesha Koch is a 64 year old female This visit took place Virtually; I have communicated my name and active licensure. The patient's identity and physical location were verified at the time of this visit. The patient or their legal pharmaceutical representative has been informed of the risks and benefits of -- and alternatives to -- treatment through a remote evaluation and consents to proceed with the evaluation remotely. The patient is being seen alone Recording using [facility] software for draft documentation of the visit was discussed with the patient/authorized pharmaceutical representative; all questions welcomed and answered. Patient/authorized pharmaceutical representative agreed to proceed REASON FOR CONSULT: [...] longer. Most of her family lives in [place], but they maintain close contact. She has a loco who helps with transportation to appointments. Lakesha is trying to gain weight and consumes high-calorie foods, including ice cream and Boost high-calorie drinks. She reports that many foods do not taste good to her since her last surgery in December. She enjoys [place] food and barbecue pork. She denies any [...] Family History REVIEW OF SYSTEMS: Modified ESAS ([place] Symptom Assessment Scale): Information Provided By: Patient [...] surface. - No ovarian parenchyma identified in pharmaceutical representative sections. B. Right retroperitoneal mass, resection: [...] Contains abnormal data RENAL FUNCTION PANEL Order: [id number] Status: Final result Test Result Released: Yes [...] High CM 106 High CM Comment: The [place] Diabetes Association (ADA) provides guidance for cutoff [...] Standards of Medical Care in Diabetes 2016, [place] [employer] Association. Diabetes Care. 2016.39(Suppl 1). BUN [...] Contains abnormal data COMPLETE BLOOD COUNT Order: [id number] Status: Final result Test Result Released: Yes [...] ago. Used some recreational drugs in the 1980s Lab Results Component Value Date UAMPH Negative 09/09/2023 UBARB2 Negative 09/09/2023 UBENZ Negative 09/09/2023 UCOC2 Negative 09/09/2023 UOPI Negative 09/09/2023 UOXYC Negative 09/09/2023 UPCP Negative 09/09/2023 UTHC Preliminary positive (A) 09/09/2023 UETOH <11 09/09/2023 Urine Panel: No results found for: UQCANN, UQBNZL, YZA3HWF, UQAMPH, UQMAMP, UQBUPRE, UQNORBUP, UQMTHD, UQEDDP, UQTRAM, UQDTRM, UQFNTL, UQNFTL, UQCODE, UQMORP, UQDCDN, UQHCOD, UQOXYC, UQHMOR, UQOXYM, UQCREA, UQPH, UQSPGR, UQOXID, UQSPQ OARRS checked?: Yes, no abberancy Naloxone offered?: Yes, accepted Prescribed Morphine Equivalent Daily Dose (MEDD): Yes < 50 MEDD Chronic Opioid Management Agreement and Informed Consent: Will complete at next visit Edwardo Valencia APRN.PROCESS DESCRIPTION WRITER Assessment & Plan 1. Palliative care by [...] father (91 yrs old) Most live in [place]. Has a good friend who drives her to appts. Family comes to visit for support. Briefly discussed goals at this time are to gain wt, not fall, gain some strength. ANTONIO will revisit face to face for more serious goals discussion. Existence of Advance Directives: Yes, documentation or copy in medical record HCPOA: Jeanette Garvin (sister); first alternate Brittney [place], second alternate Calli Alfaro FULL CODE Next Visit: 4 Weeks in-person Palliative Medicine Nurse to do telephonic follow-up: No Pullman Car Repairer Services: None at this time Referral to Mechanical Inspector: No, not at this time Recommendations will be communicated back to the consulting service by way of shared electronic medical record. (Some elements copied from inpatient palliative note dated 08/21/2024, Dr. Spring note on 09/16/24 which have been updated where appropriate, and reflect current medical decision making from today, 09/20/24.) Edwardo Valencia APRN.LUZMA September 20, 2024 12:54 PM documented in this encounterChildren'S Hospital [facility]06-27-2025 NotePrem[facility] Health [facility]06-23-2025 Telephone encounter Note* Telephone Encounter - Rema Beltre RN - 09/16/2024 2:35 PM EDT Called patient on 09/13 to discuss. [facility]06-23-2025 Miscellaneous Notes* Telephone Encounter - Rema Beltre RN - 09/16/2024 2:35 PM EDT Called patient on 09/13 to discuss. documented in this encounterChildren'S Hospital Of Columbus06-23-2025 NotePrem[facility] Health [facility]06-23-2025 History of Present illness Narrative* Tessa Spring [...] surface. - No ovarian parenchyma identified in pharmaceutical representative sections. B. Right retroperitoneal mass, resection: [...] on the pathology report. Tessa Spring MD [facility] [place] [facility] * Fátima Lubin [...] surface. - No ovarian parenchyma identified in pharmaceutical representative sections. B. Right retroperitoneal mass, resection: [...] Seven (7) tumor deposits. documented in this encounterChildren'S Hospital Of Columbus06-23-2025 NotePrem[facility] Health [facility]06-23-2025 NotePrem[facility]06-20-2025 Discharge summary Author Qamar Smith [facility] Note Date/Time September 13, 2024 3:01 pm [facility] Medical Records Department [address] [place] [address] Discharge Summary 09/12/242028 MR#: [id number] Acct: [id number] Name: LAKESHA KOCH ILENE Rep #:[id number] : 1960 64 From: Qamar Smith MD PCP: Aubrey Lopez TRAY FILLER-C Status:ADM IN Location: [place] [address] Providers Date of Admission: 09/04/24 Primary Care Physician: VEENA Kothari, TRAY FILLER-C Reason For Visit: ABD PAIN; STAGE 2 [...] __x__ GRD contraindicated. Reason contraindicated: stable chronic snf use. The following psychotropic medication was present [...] __x__ GRD contraindicated. 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 Medications at Discharge Home Medications alendronate [...] discharge home alone. Discharge home alone 09/15/2024, [facility] PT, pending acceptance. Physical Exam Const [...] 71.1 H, Lymph % (Auto) 17.0 L, Perry % (Auto) 7.2, Eos % (Auto) 3.4, [...] No Additional Instructions: Discharge home alone 09/15/2024, [facility] PT, pending acceptance. Please Follow Up [...] Instructions / Restrictions: Discharge home alone 09/15/2024, [facility] PT, pending acceptance. Discharge Orders/Prescriptions Prescriptions: [...] 0RF Referrals / Follow Up: Aubrey Lopez, TRAY FILLER-C [Primary Care Provider] - Disposition Disposition (needs filled in before D/C Order can be placed): Home Health Service 09/12/242041 <Electronically signed by Qamar Smith MD> Cosigner Signature (if applicable): CC: Dr. Qamar Smith MD; Aubrey CURIEL TRAY FILLER-C Beam~ Signed ADDENDUM by Dr. Qamar Smith [...] cholecystectomy, she would prefer to return to [facility] for care, vital signs stable. Discharge to [facility] Emergency Department 09/13/2024, for evaluation, admission to hospital. 09/13/24 1436<Electronically signed by Qamar Smith MD> Cosigner Signature (if applicable): cc: Dr. Qamar Smith MD; [facility] TRAY FILLER-C Beam ~* Signed ADDENDUM by Dr. Qamar Smith MD on 09/13/24 at 1501 Addendum Gallbladder ultrasound cancelled due to patient having eaten. 09/13/24 1501<Electronically signed by Qamar Smith MD> Cosigner Signature (if applicable): cc: Dr. Qamar Smith MD; [facility] TRAY FILLER-C Beam ~* Signed [facility] Work Phone: 1(586) 815-739606-20-2025 Telephone encounter Note* Telephone Encounter - Rema Beltre RN - 09/13/2024 4:23 PM EDT Called and spoke with patient. She started having severe sharp intermediate abdominal pain on Monday. Went to [facility] and had imaging done. 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 Spring's opinion. Advised patient she should report to ER, however, patient is scheduled for a follow up on with Dr. Spring and would like to wait until Monday to see him instead of going to ER. Patient understanding if pain becomes worse to report to ER. [facility]06-20-2025 Miscellaneous Notes* Telephone Encounter - Rema Beltre RN - 09/13/2024 4:23 PM EDT Called and spoke with patient. She started having severe sharp intermediate abdominal pain on Monday. Went to [facility] and had imaging done. 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, they were suggesting surgery or drainplacement at [place], but patient is wanting to come back [...] a possible gallbladder problem return call to [phone] documented in this encounterChildren'S Hospital [facility]06-20-2025 Discharge summary [facility] Medical Records Department [address] [place] [address] Discharge Summary 09/12/242028 MR#: [id number] Acct: [id number] Name: LAKESHA KOCH Rep #:[id number] : 1960 64 From: Qamar Smith MD PCP: Aubrey Lopez Status:ADM IN Location: [place] [address] Providers Date of Admission: 09/04/24 Primary Care Physician: VEENA Kothari, TRAY FILLER-C Reason For Visit: ABD PAIN; STAGE 2 [...] __x__ GRD contraindicated. 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 The following psychotropic medication was present [...] __x__ GRD contraindicated. 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 Medications at Discharge Home Medications alendronate [...] discharge home alone. Discharge home alone 09/15/2024, [facility] PT, pending acceptance. Physical Exam Const [...] 71.1 H, Lymph % (Auto) 17.0 L, Perry % (Auto) 7.2, Eos % (Auto) 3.4, [...] No Additional Instructions: Discharge home alone 09/15/2024, [facility] PT, pending acceptance. Please Follow Up [...] Smith Chi Primary Care Provider: Aubrey Lopez [facility] Instructions Additional Instructions / Restrictions: Discharge home alone 09/15/2024, [facility] PT, pending acceptance. Discharge Orders/Prescriptions Prescriptions: [...] 0RF Referrals / Follow Up: Aubrey Lopez, TRAY FILLER-C [Primary Care Provider] - Disposition Disposition (needs filled in before D/C Order can be placed): Home Health Service 09/12/242041 Cosigner Signature (if applicable): CC: Dr. Qamar Smith MD; Aubrey CURIEL NP-C eJssica~ Signed ADDENDUM by Dr. Qamar Smith MD [...] cholecystectomy, she would prefer to return to [facility] for care, vital signs stable. Discharge to [facility] Emergency Department 09/13/2024, for evaluation, admission to hospital. 09/13/24 1436 Cosigner Signature (if applicable): cc: Dr. Qamar Smith MD; Aubrey KIRBY Beam ~* Signed ADDENDUM by Dr. Qamar Smith MD on 09/13/24 at 1501 Addendum Gallbladder ultrasound cancelled due to patient having eaten. 09/13/24 1501 Cosigner Signature (if applicable): cc: Dr. Qamar Smith MD; [facility] TRAY FILLER-C Beam ~* Signed [facility]06-20-2025 Telephone encounter Note* Telephone Encounter - Brittany [...] a possible gallbladder problem return call to [phone] [facility] Work Phone: 1(461) 597-460406-20-2025 Radiology Diagnostic study note [facility] Imaging Services [address] [place] [id number] Abdomen/Pelvis WITH Contrast MR#: [id number] Acct: [id number] Name: LAKESHA KOCH ILENE Rep #: [id number] : 1960 F 64 From: Ray Rawls MD PCP: Aubrey Lopez [facility] TRAY FILLER-C Status: REG CLI Study:Abdomen/Pelvis WITH Contrast Date of Ex am: 09/13/24 Exam# [id number] Ordering Dr: Qamar Smith MD PROCEDURE: ABDOMEN/PELVIS [...] 4. Other findings as noted. Reading Location: [id number] CC: Dr. Qamar Smith MD; Aubrey CURIEL TRAY FILLER-C Jessica ~ Employee Operations Examiner: Signed [facility] Work Phone: 1(553) 817-946206-19-2025 [facility]06-16-2025 History and physical note Author Qamar Smith [facility] Note Date/Time September 09, 2024 4:22 pm [facility] Medical Records Department [address] [place] [address] History & Physical Exam 09/04/242118 MR#: [id number] Acct: [id number] Name: LAKESHA KOCH Rep #:[id number] : 1960 64 From: Qamar Smith MD PCP: Aubrey Lopez TRAY FILLERMathewC Status:ADM IN Location: [facility] TC0 HPI - General General Date of Admission: 09/04/24 Date of Service: 09/04/24 Chief Complaint: Here for rehabilitation. HPI Narrative LAKESHA KOCH, is a 64 Female who presents with followin08/28/2024 Admit to [facility]. Lakesha has past medical history notable [...] prior to discharge home alone. [facility] Medical History (Updated 09/04/24 @ 21:52 by [...] __x__ GRD contraindicated. 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 The following psychotropic medication was present [...] __x__ GRD contraindicated. 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 09/04/24 7889 <Electronically signed by Qamar Smith MD> Cosigner Signature (if applicable): CC: Dr. Qamar Smith MD; [facility] TRAY FILLER-C Beam~ Signed ADDENDUM by Dr. Qamar Smith MD on 09/05/24 at 0735 Addendum Seizure disorder - Resident refused Depakote ER 500mg bid, she states she has not taken for 2 months, she does see Dr. Gil Hylton, Neurologist at [facility]. She informed me her seizures are hemalatha vu, hot flash, lasts 2 minutes, goes away,she does not lose consciousness, no tonic-clonic activity. Will stop Depakote, resident aware of risks. 09/05/24 0735<Electronically signed by Qamar Smith MD> Cosigner Signature (if applicable): cc: Dr. Qamar Smith MD; [facility] TRAY FILLER-C Beam ~* Signed ADDENDUM by Dr. Qamar Smith MD on 09/09/24 at 1622 Addendum Allergic dermatitis - Abdominal incision, tape removed, DSD daily, HC 2.5% creamnot helpful, add Medrol dose pack, Hydroxyzine 50mg tid prn itching. 09/09/24 1622<Electronically signed by Qamar Smith MD> Cosigner Signature (if applicable): cc: Dr. Qamar Smith MD; [facility] TRAY FILLER-C Beam ~* Signed [facility] Work Phone: 1(801) 615-533806-16-2025 History and physical note [facility] Medical Records Department [address] [place] [address] History & Physical Exam 09/04/242118 MR#: [id number] Acct: [id number] Name: LAKESHA KOCH ILENE Rep #:[id number] : 1960 64 From: Qamar Smith MD [facility] TRAY FILLER-C Status:ADM IN Location: [place] [address] HPI - General General Date of Admission: 09/04/24 Date of Service: 09/04/24 Chief Complaint: Here for rehabilitation. HPI Narrative LAKESHA KOCH, is a 64 Female who presents with followin08/28/2024 Admit to [facility]. Lakesha has past medical history notable for epilepsy, failure to thrive, low BMI, cecal adenocarcinoma (s/p laparoscopic ileocecectomy 01/03/24) complicated by local recurrence (s/p adjuvant capecitabine), s/p exploratory laparotomy, extensive adhesiolysis, retroperitoneal mass resection with en block resection of right fallopian tube, right oophorectomy, small bowel resection with revisionof iliac colic anastomosis, ureteral stent placement, and femoral nerve ligation6/06/2024. Overall, patient progressing fairly well however does [...] prior to discharge home alone. [facility] Medical History (Updated 09/04/24 @ 21:52 by [...] __x__ GRD contraindicated. 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 The following psychotropic medication was present [...] __x__ GRD contraindicated. Reason contraindicated: stable chronic snf use. 09/04/243 Cosigner Signature (if applicable): CC: Dr. Qamar Smith MD; Aubrey CURIEL NP-C Jessica~ Signed ADDENDUM by Dr. Qamar Smith MD on 09/05/24 at 0735 Addendum Seizure disorder - Resident refused Depakote ER 500mg bid, she states she has not taken for 2 months, she does see Dr. Gil Hylton, Neurologist at [facility]. She informed me her seizures are hemalatha [...] MD; Aubrey CURIEL NP-C Jessica ~* Signed [facility]06-12-2025 Progress note Author Keri Michel [facility] Note Date/Time September 05, 2024 5:24 pm [facility] Medical Records Department [address] [place] [address] Progress Note - Pharmacy 09/05/24 1655 MR#: [id number] Acct: [id number] Name: LAKESHA KOCH ILENE Rep #:[id number] : 1960 64 From: Keri Michel PCP: Aubrey Lopez Status:ADM IN [id number] Documented by User: Keri Michel 09/05/24 17:22 [...] by Qamar Smith MD> CC: ~ Signed [facility] Work Phone: 1(639) 892-579606-12-2025 Progress note [facility] Medical Records Department [address] [place] [address] Progress Note - Pharmacy 09/05/24 1654 MR#: [id number] Acct: [id number] Name: DALIA KOCHANA BANSAL Rep #:[id number] : 1960 64 From: Keri Michel PCP: Aubrey Lopez TRAY FILLER-C Status:ADM IN Location: [place] [address]- Documented by User: Keri Michel 09/05/24 17:22 [...] Comments to Recommendations by Pharmacy Agree 09/05/24 1339 Keri Gupta Signature (if applicable): 09/05/24 9358 CC: ~ Signed [facility]06-12-2025 Telephone encounter Note* Telephone Encounter - Fang Myers - 09/05/2024 9:31 AM EDT OV scheduled [facility] Work Phone: [phone]) 353-863806-12-2025 Miscellaneous Notes* Telephone Encounter - Fang Myers - 09/05/2024 9:31 AM EDT OV scheduled * Telephone Encounter - Kate Castillo RN - 09/05/2024 9:15 AM EDT PSS: please make F/U OV with Dr. Poole 09/25/24 at 220pm. No need to call patient. Judy Castillo, REAL * Telephone Encounter - Kate Castillo RN - 09/04/2024 2:55 PM EDT DISCHARGE CALL BACK Today's date: September 04, 2024 Notified of Pt discharge by: Carmen Patient discharged on 09/04/24 from [facility] to [facility] Facility (SNF) at [facility] Primary Cancer Diagnosis: Colon Admitting Diagnosis: exploratory laparotomy, extensive adhesiolysis, RP mass resection with en blocresection of right fallopian tube, right oophorectomy, small bowel resection with revision of iliaccolic anastomosis, ureteral stent placement and femoral nerve ligation on 08/28 Discharge Summary/SBAR reviewed: Yes Handoff Discussed with Transitional Implementation Architect: N/A Psychosocial Risk Factors: None If patient discharged to SNF/Rehab Facility, phone call completed to reinforce discharge instructions and follow up: Yes, spoke with Lissy at SNF at [facility] ([phone]). She checked with patient's nurse, they have [...] steps. Kate Castillo RN documented in [facility]Children[facility]-20[facility] Telephone encounter Note * Telephone Encounter - Kate Castillo RN - 09/05/2024 9:15 AM EDT PSS: please make F/U OV with Dr. Poole 09/25/24 at 220pm. No need to call patient. Judy Castillo RN [facility] Work Phone: [phone]) 504-754406-11-2025 [facility]06-11-2025 Evaluation note* Diagnosis Onset Date Resolution Status Admit Date Anxiety acute September 04 3:29pm Colon cancer acute September 04 2 025 3:29pm Debility acute September 04 3:29pm Depression acute September 04 3:29pm GERD (gastroesophageal reflu x disease) acute September 04, 2024 3:29pm Osteoporosis acute September 04 2 025 3:29pm Seizure disorder acute August 3:29pm Hypokalemia resolved September 04 3:29pm [facility] Work Phone: 1(677) 804-619606-11-2025 Evaluation note* Diagnosis Onset Date Resolution Status [...] 04 3:29pm Abdominal pain acute October 3:14pm [facility] Work Phone: 1(122) 711-407906-11-2025 Evaluation note* Diagnosis Onset Date Resolution Status Admit Date Anxiety acute September 04 3:29pm Colon cancer acute September 04 025 3:29pm Debility acute September 04 3:29pm Depression acute September 04 3:29pm GERD (gastroesophageal reflu x disease) acute September 04, 2024 3:29pm Osteoporosis acute September 04 025 3:29pm Seizure disorder acute August 3:29pm Hypokalemia resolved September 04 3:29pm Abdominal pain resolved October 3:14pm [facility] Work Phone: 1(549) 547-137506-11-2025 Telephone encounter Note* Telephone Encounter - Kate Castillo RN - 09/04/2024 2:55 PM EDT DISCHARGE CALL BACK Today's date: September 04, 2024 Notified of Pt discharge by: Carmen Patient discharged on 09/04/24 from [facility] to [facility] Facility (SNF) at [facility] Primary Cancer Diagnosis: Colon Admitting Diagnosis: exploratory laparotomy, extensive adhesiolysis, RP mass resection with en blocresection of right fallopian tube, right oophorectomy, small bowel resection with revision of iliaccolic anastomosis, ureteral stent placement and femoral nerve ligation on 08/28 Discharge Summary/SBAR reviewed: Yes Handoff Discussed with Transitional Implementation Architect: N/A Psychosocial Risk Factors: None If patient discharged to SNF/Rehab Facility, phone call completed to reinforce discharge instructions and follow up: Yes, spoke with Lissy at SNF at [facility] ([phone]). She checked with patient's nurse, they have [...] to discuss next steps. Kate Castillo RN [facility]06-11-2025 NoteFaBeverly [id number] Telephone encounter Note* Telephone Encounter - Ashutosh Patient [facility] Path[facility] Associate ProfessorMarilyn Stewart - 09/04/2024 2:07 PM EDT Patient is currently hospitalized. Saw inpatient pall med to discuss symptoms like pain, goc / codestatus. Please offer f/u post discharge Electronically signed by Ashutosh Patient [facility] Associate ProfessorMarilyn Stewart at 09/04/2024 2:08 PM EDT [facility]06-11-2025 Miscellaneous Notes* Telephone Encounter - Ashutosh Patient [facility] Associate ProfessorMarilyn Stewart - 09/04/2024 2:07 PM EDT Patient is currently hospitalized. Saw inpatient pall med to discuss symptoms like pain, goc / codestatus. Please offer f/u post discharge Electronically signed by Ashutosh Patient [facility] Associate ProfessorMarilyn Stewart at 09/04/2024 2:08 PM EDT * Telephone Encounter - Tricia Burdick PSS - 09/04/2024 10:56 AM EDT REFERRAL FOR PALLIATIVE CARE AT HOME Date Referral Received: 09/04/24 Date of : 1960 Age: [age] year old Patient has PCP: Christie Saenz NP Visit address from [facility]: [address] [place] [id number] Reason for consult: Goals of care Referral Source: [facility] to [facility] Name of Physician who gave the order: TESSA CAINFOUCHRIS Other services ordered: Palliative care Primary Insurance Company: Payor: MEDICARE / Plan: MEDICARE A AND B / Product Type: Medicare / Primary Insurance ID Number: [id number] Referral Info Complete. Right click to reselect and continue Referral documented in this encounterChildren[facility]06-11-2025 Telephone encounter Note * Telephone Encounter - Tricia Burdick PSS - 09/04/2024 10:56 AM EDT REFERRAL FOR PALLIATIVE CARE AT HOME Date Referral Received: 09/04/24 Date of : 1960 Age: [age] year old Patient has PCP: Christie Saenz NP Visit address from [facility]: [address] [facility] [address] Reason for consult: Goals of care Referral Source: [facility] to [facility] Name of Physician who gave the order: TESSA SPRING Other services ordered: Palliative care Primary Insurance Company: Payor: MEDICARE / Plan: MEDICARE A AND B / Product Type: Medicare / Primary Insurance ID Number: [id number] Referral Info Complete. Right click to reselect and continue Referral [facility]06-10-2025 Telephone encounter Note* Telephone Encounter - Olga Maria - 09/03/2024 4:20 PM EDT Date/Time: 09/03/2024 4:20 PM Spoke with LAKESHA KOCH @ phone #: [phone] (Home Phone) - Preferred # for contact: LAKESHA KOCH @ phone #: [phone] (Home Phone) Have you received help from a home care company in the last 60 days? NO Are you agreeable to [facility] services? YES What address will we be seeing you at? [address] [facility] [address] Do you have any upcoming appointments or things we need to schedule around? NO Do you have a teachable CG or can you manage your care independently? independently Who? N/A [facility] Work Phone: [phone]) 662-300606-10-2025 Miscellaneous Notes* Telephone Encounter - Olga Maria - 09/03/2024 4:20 PM EDT Date/Time: 09/03/2024 4:20 PM Spoke with AUGUST, LAKESHA @ phone #: [phone] (Home Phone) - Preferred # for contact: LAKESHA KOCH @ phone #: [phone] (Home Phone) Have you received help from a home care company in the last 60 days? NO Are you agreeable to HHC services? YES What address will we be seeing you at? [address] [place] [address] Do you have any upcoming appointments or things we need to schedule around? NO Do you have a teachable CG or can you manage your care independently? independently Who? N/A documented in this encounterChildren'S [facility]06-10-2025 Telephone encounter Note * Telephone Encounter - [...] care clinicians may also obtain orders from [facility] Virtualist Providers Thank you and we would be happy to answer any questions. Olga Kennedy LPN 09/03/2024 1:02 PM [facility] Work Phone: [phone]) 316-919706-10-2025 Miscellaneous Notes* Telephone Encounter - Olga Kennedy [...] care clinicians may also obtain orders from [facility] Virtualist Providers Thank you and we would be happy to answer any questions. Olga Kennedy LPN 09/03/2024 1:02 PM documented in this encounterChildren'S Hospital [facility]06-10-2025 [facility]En[facility]-02-2024 [facility]06-09-2025 [facility]06-08-2025 Note [facility] [id number] NoteEncompass Health Rehabilitation Hospital Of [facility] EnglandOccgfvmk33-26-2525 [facility]06-06-2025 [facility]06-05-2025 [facility] 08-29-2024 [facility]06-05-2025 [facility]06-04-2025 Note [facility] EnglandTpwrsnon51-74-1904 [facility]06-04-2025 [facility]06-04-2025 [facility]06-04-2025 [facility] 08-22-2024 Telephone encounter Note* Telephone Encounter - Kate Castillo RN - 08/22/2024 11:49 AM EDT DISCHARGE CALL BACK Today's date: August 22, 2024 Notified of Pt discharge by: Carmen Patient discharged on 08/21/24 from [place] to [place] Primary Cancer Diagnosis: Colon Admitting Diagnosis: Abdominal Pain Discharge Summary/SBAR reviewed: Yes Handoff Discussed with Transitional Implementation Architect: N/A Psychosocial Risk Factors: None If patient [...] up with Dr. Poole. Kate Castillo RN [facility] Work Phone: [phone]) 586-566205-29-2025 Miscellaneous Notes* Telephone Encounter - Kate Castillo RN - 08/22/2024 11:49 AM EDT DISCHARGE CALL BACK Today's date: August 22, 2024 Notified of Pt discharge by: Carmen Patient discharged on 08/21/24 from [place] to Home Primary Cancer Diagnosis: Colon Admitting Diagnosis: Abdominal Pain Discharge Summary/SBAR reviewed: Yes Handoff Discussed with Transitional Implementation Architect: N/A Psychosocial Risk Factors: None If patient [...] Poole. Kate Castillo RN documented in this encounterChildren'S [facility]05-28-2025 [facility] 08-21-2024 NoteEncompass Health Rehabilitation Hospital Of New [id number] [facility]05-14-2025 Note [facility]05-12-2025 [facility]Prem[facility]05-12-2025 [facility]Prem[facility]05-12-2025 [facility]Prem[facility] 08-05-2024 [facility]Prem[facility]05-07-2025 Telephone encounter Note* Telephone Encounter - Bryanna Gonzalez LPN - 07/31/2024 4:01 PM EDT Patient calling in for a refill. Rx pended. Please send. Bryanna Gonzalez LPN [facility]05-07-2025 Miscellaneous Notes* Telephone Encounter - Bryanna Gonzalez LPN - 07/31/2024 4:01 PM EDT Patient calling in for a refill. Rx pended. Please send. Bryanna Gonzalez LPN documented in this encounterChildren'S Hospital [facility]05-07-2025 [facility]Prem[facility]05-07-2025 History of Present illness Narrative* Jimmie Poole [...] which included preparing to see the patient, [id number] patient care, completing clinical documentation, obtaining and/or reviewing separately obtained history, counseling and educating the patient/family/caregiver, ordering medications, arron ts, or procedures, communicating with other HCPs (not separately reported), independently interpreting results (not separately reported), communicating results to the patient/family/caregiver, and care coordination (not separately reported). And review of NCCN guidelines Electronically Signed: Jimmie Poole MD July 31, 2024 documented in this encounterChildren'S Hospital [facility]04-28-2025 Telephone encounter Note * Telephone Encounter - Kate Castillo RN - 07/22/2024 12:[address] Poole aware and will send in Rx for Oxycodone. Judy Castillo RN [facility] Work Phone: [phone] Miscellaneous Notes* Telephone Encounter - Kate Castillo [...] provided. Kate Castillo RN documented in this encounterChildren'S Hospital [facility]04-28-2025 Telephone encounter Note * Telephone Encounter - [...] planned for this Monday. Judy Castillo RN [facility]04-28-2025 Telephone encounter Note* Telephone Encounter - Bettye Flores - 07/22/2024 12:35 PM EDT Patient called back and was transferred to REAL Gutierrez [facility]04-28-2025 Telephone encounter Note* Telephone Encounter - Kate Castillo RN - 07/22/2024 11:39 AM EDT Call to patient, message left to call me back and phone/contact number provided. Kate Castillo RN [facility]04-25-2025 [facility]Prem[facility]04-24-2025 Note [facility]04-22-2025 Telephone encounter Note* Telephone Encounter - Kate Castillo RN - 07/16/2024 2:03 PM EDT Patient scheduled bx of abdominal mass per Dr. Spring. Scheduled for 07/24/24. See OV note 07/15/24. Judy Castillo RN [facility] Work Phone: [phone]) 682-976204-22-2025 Miscellaneous Notes* Telephone Encounter - Kate Castillo [...] Che Cortes LPN * Telephone Encounter - Winter Rao RN - 07/10/2024 3:15 PM EDT Late [...] front door. Pt verbalizedshe was going to [facility]. Winter Rao RN documented in this encounterChildren'S Hospital [facility]04-21-2025 [facility]Prem[facility]04-21-2025 History of Present illness Narrative* Tessa Spring MD - 07/15/2024 4:25 PM EDT Images from the original note were not included. Established Patient Visit REASON FOR VISIT Follow up imaging I have communicated my name and active licensure. The patient's identity and physical location wereverified at the time of this visit. Either the patient or their legal pharmaceutical representative has been informed of the risks [...] and nausea which required a visit to [facility] where she continued to receive conservative management with episcopalian of bowel function. On follow-up visits, the drain was managed expectantly and was eventually removed a month ago. During this course, the patient experienced significant failure to thrive and weight loss. She eventually underwent an ileocecectomy with wi on 01/04/2024 that showed the following on [...] meals. (Patient not taking: Reported on 04/16/2024) 26731 mL 0 Food Supplement, Lactose-Free (ENSURE HIGH PROTEIN) liqd Take 237 mL by mouth two times a day. 2 times daily between meals 51378 mL 0 Food Supplement, Lactose-Free (ENSURE CLEAR) [...] requiring medication, no history of angina, CHF, [place], cardiac surgery or stents. Denies rest pain, [...] Level: 5 - High Tessa Spring MD [facility] [place] [facility] July 15, 2024 documented in this encounterChildren'S Hospital [facility]04-18-2025 Telephone encounter Note * Telephone Encounter - Kate Castillo RN - 07/12/2024 10:19 AM EDT Call to patient, message left to call me back and phone/contact number provided. Judy Castillo RN [facility]04-18-2025 Telephone encounter Note* Telephone Encounter - Kate Castillo RN - 07/12/2024 10:19 AM EDT Images from the original note were not included. [facility]04-18-2025 Telephone encounter Note* Telephone Encounter - Kate [...] today after discussing plan with him. Judy Castillo, RN [facility]04-17-2025 Telephone encounter Note* Telephone Encounter - Che [...] evaluation. Pt. Voiced understanding. Che Cortes LPN [facility]04-16-2025 Telephone encounter Note* Telephone Encounter - Winter Rao RN - 07/10/2024 3:15 PM EDT Late [...] front door. Pt verbalizedshe was going to [facility]. Winter Rao, REAL [facility]04-10-2025 Telephone encounter Note* Telephone Encounter - Amber Valverde LISW - 07/04/2024 3:45 PM EDT SOCIAL WORK FOLLOW UP NOTE: [facility] Date of service: July 04, 2024 [...] DOM listed in Care Team tab: Yes EVIE Peterson-Roger [facility]04-10-2025 Miscellaneous Notes* Telephone Encounter - Amber Valverde LISW - 07/04/2024 3:45 PM EDT SOCIAL WORK FOLLOW UP NOTE: [facility] Date of service: July 04, 2024 [...] refer pt this date. Pt in agreement. DOM referred pt this date via email to TCIN[facility]. No other needs identified at this time. PLAN: Assist with financial support applications and Continue follow up as needed F/U APPOINTMENT: PRN Assigned DOM listed in Care Team tab: Yes ANG Peterson documented in this encounterChildren'S Hospital [facility]04-10-2025 Telephone encounter Note * Telephone Encounter - Bryanna Gonzalez LPN - 07/04/2024 11:23 AM EDT Patient stopped in office to let us know she started her Xeloda yesterday. Patient's labs/OV rescheduled to 07/19/2024. Bryanna Gonzalez LPN [facility]04-10-2025 Miscellaneous Notes* Telephone Encounter - Bryanna Gonzalez [...] medication. Please advise patient. documented in this encounterChildren'S Hospital [facility]04-08-2025 Telephone encounter Note * Telephone Encounter - [...] scan. Patient understanding and thankful for plan. [facility]04-08-2025 Miscellaneous Notes* Telephone Encounter - Rema Beltre [...] concerns regarding abdominal pain return call to [phone] documented in this encounterChildren'S Hospital [facility]04-08-2025 Telephone encounter Note * Telephone Encounter - Brittany Mariscal - 07/02/2024 9:38 AM EDT Patient called and left a message regarding post operative 12/2023 Diagnostic laparoscopy Exploratory laparotomy Drainage of intraabdominal abscess Ileocecectomy End-to-side ileo-ascending hand sawn anastomosis Bilateral TAP blocks (transversus abdominis block with guidance) and concerns regarding abdominal pain return call to [phone] [facility] [facility] Work Phone: 1(633) 754-648004-08-2025 Telephone encounter Note* Telephone Encounter - Ellyn Zhang RN - 07/02/2024 9:31 AM EDT Patient instructed to call our office once she has a delivery date for medication so labs/OV can beadjusted to her off week. Ellyn Zhang, RN [facility]04-08-2025 Telephone encounter Note* Telephone Encounter - Loni Kenny Fang - 07/02/2024 9:19 AM EDT Patient called [...] she will start medication. Please advise patient. T [facility] Work Phone: 1(299) 235-836704-01-2025 History of Present illness Narrative* Jag Lenz [...] on fluids throughout the day -Continue Boost [facility] x 2 per day -Strategies to manage [...] Chewing problems Taste changes Diet History: Boost VH (530 dillan) 2 per day Makes with [...] Dosing Weight: 41 kg Estimated kilocalorie needs: 2288-9516 kilocalories determined by 30-35 kcal/kg Estimated protein [...] meals. (Patient not taking: Reported on 04/16/2024) 85231 mL 0 Food Supplement, Lactose-Free (ENSURE HIGH PROTEIN) liqd Take 237 mL by mouth two times a day. 2 times daily between meals 81921 mL 0 Food Supplement, Lactose-Free (ENSURE CLEAR) liqd Take 237 mL by mouth daily after lunch. PM Snack 7110 mL 0 No current facility-administered medications for this visit. Need for Follow up: as needed Referred/Supervised by: Adrienne Bahena MNLeonila Billing Type: Initial Assess/15 min 2 units Signed by: Jag Lenz RD, LD documented in this encounterChildren'S [facility]04-01-2025 [facility]Prem[facility]03-24-2025 NotePrem[facility]03-24-2025 History of Present illness Narrative* Adrienne Bahena [...] to correlate with current findings. Adrienne Bahena APRN.PROCESS DESCRIPTION WRITER I spent a total of 30 minutes on the date of the service which included preparing to see the patient, [id number] patient care, completing clinical documentation, obtaining and/or [...] evaluation of this patient. documented in this encounterChildren'S [facility]03-20-2025 NotePremier [facility]03-05-2025 Telephone encounter Note* Telephone Encounter - Bryanna Gonzalez LPN - 05/29/2024 4:19 PM EST Advised patient to contact her PCP for medication. Patient agreeable. Bryanna Gonzalez LPN [facility]03-05-2025 Miscellaneous Notes* Telephone Encounter - Bryanna Gonzalez [...] Please adise. Mayda Weems documented in this encounterChildren'S [facility]03-05-2025 Telephone encounter Note * Telephone Encounter - Mayda Weems - 05/29/2024 11:51 AM EST Pt stopped in and is requesting a persription for Valium for a dental appt on 06/18 for anxity, states it is very expensive to get it from her dentist. Please adise. Mayda Weems [facility]03-04-2025 Telephone encounter Note* Telephone Encounter - Kate Castillo RN - 05/28/2024 9:35 AM EST Form faxed to [facility] and then sent to scanning. Judy Castillo RN [facility] Work Phone: 1(335) 466-640503-04-2025 Miscellaneous Notes* Telephone Encounter - Kate Castillo RN - 05/28/2024 9:35 AM EST Form faxed to [facility] and then sent to scanning. Judy [...] also. This will be faxed back to [facility]. Attempted to call patient to advise above. No answer. Message left with general message regarding above and to call back in to discuss. Judy Castillo RN documented in this encounterChildren'S [facility]03-03-2025 Telephone encounter Note * Telephone Encounter - [...] swallow. Reviewed upcoming appointments. Judy Castillo RN [facility]02-28-2025 Telephone encounter Note* Telephone Encounter - Kate Castillo RN - 05/24/2024 1:[address] Poole received form for dental clearance for tooth extraction. Patient ok to have extraction at the end of week for Xeloda and obtain a CBC prior also. This will be faxed back to [facility]. Attempted to call patient to advise above. No answer. Message left with general message regarding above and to call back in to discuss. Judy Castillo RN [facility]02-26-2025 History of Present illness Narrative* Jayjay (Retail Loss Prevention Officer)Tete - 05/22/2024 1:09 PM EST [facility] [...] been reviewed prior to dispensing the medication. Kettle Skimmer Assessment Patient confirmed: Yes Med/dose confirmed: Yes Supplies needed: No supplies needed Missed doses: No Estimated days supply on hand: 0 Next cycle/dose due: 05/29/24 Copay amount: 7.68 Copay form of payment: Credit card on file Payment confirmed: Yes Delivery method: FedEx Signature required: Waived on patient request Delivery address: [address] [place] [id number] Delivery date: 05/28/24 Questions or concerns for [...] facility-administered medications on file prior to visit. 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 hazardous A/E: Bone marrow suppression,derm toxicity (STJ, HFS), GI toxicity(N/V/D), stomatitis, hepatoxicity, fatigue,asthenia, edema, D/I: No major Lab/Monitoring: Renal function-baseline Renal/hepatic function, CBC-during therapy Vaccine Assessment: Patient is overdue for some routine vaccinations, enrolled in [employer] reminders. Est. Tx Plan Start Date: No information available Estimated Start Date Info: Per Dr. Poole's discretion Est. Estimated Treatment Duration: ~3-6 months, monitor Tete Ro (Spling) documented in this encounterChildren'S [facility]02-26-2025 NotePrem[facility]02-26-2025 [facility]02-17-2025 Instructions* Patient Instructions* Fe Edmond APRN.PROCESS DESCRIPTION WRITER - 05/13/2024 6:45 PM EST Images from [...] small number of people the nodule may returned case inspector to be an early cancer. Your doctor [...] cancer? Fewer than 5% of all nodules returned case inspector to be cancer What if my nodule [...] smoking. THAT IS WRONG. documented in this encounterChildren'S [facility]02-17-2025 NotePrem[facility]02-17-2025 History of Present illness Narrative* Fe Edmond LETI.PROCESS DESCRIPTION WRITER - 05/13/2024 11:48 AM EST Images from the original note were not included. [facility] INCIDENTAL LUNG NODULE PROGRAM (Follow Up) Impression [...] Nodule Surveillance Lung Nodule Program Location: [facility] History of Present Illness Lakesha Koch [...] (89 lb 1.1 oz) Modified Medical Research [place] Dyspnea Scale (MMRC) I only get breathless [...] DATE OF [facility]AM: May 03 [facility] [...] proteinaceous cyst, continued interval surveillance is recommended. Employee Operations Examiner: PSCB Transcribe Date/Time: May 06 2024 6:25A Dictated by : BRIANA PETIT MD This examination was interpreted and the report reviewed and electronically signed by: BRIANA PETIT MD on May 06 2024 4:28PM EST Impression / Recommendations To optimize physician communication via the electronic health record, the Impression & Recommendations section has been placed at the beginning of this note. Fe Edmond APRN.PROCESS DESCRIPTION WRITER Pulmonary & Critical Care Medicine May 13, 2024 11:48 AM documented in this encounterChildren'S [facility]02-11-2025 NotePrem[facility]02-11-2025 History of Present illness Narrative* Marisa Monaco HUC - 05/07/2024 12:04 PM EST Follow Up Diagnosis: Lung Nodule Recommendation: CT Scan Follow up Date: 05/13/2024 Follow-Up Scheduled: Yes Pulmonary Follow-Up Type: Lung Nodule Surveillance Enrolled in Lung Nodule program: Yes Lung Nodule Program Location: [facility] CT completed documented in this encounterChildren'S [facility]02-10-2025 History of Present illness Narrative* Adrienne Bahena [...] to correlate with current findings. Adrienne Bahena APRN.PROCESS DESCRIPTION WRITER I spent a total of 20 minutes on the date of the service which included preparing to see the patient, [id number]-dslt patient care, completing clinical documentation, obtaining and/or [...] evaluation of this patient. documented in this encounterChildren'S [facility]02-10-2025 NotePrem[facility]02-07-2025 History of Present illness Narrative* Dulce Zhou [...] PATIENT PRESENTS WITH AN IMPLANTABLE OR ATTACHED DIRECTOR PEOPLESOFT: No RADIOLOGY DEPARTMENT: CT; Exam(s) Completed: Chest PERIPHERAL IV DATA: Not applicable SIGNED BY: RT Oscar(R) May 03, 2024 2:45 PM documented in this encounterChildren'S [facility]02-07-2025 NotePrem[facility]2025 NotePrem[facility]01-21-2025 History of Present illness Narrative* Adrienne Bahena [...] reports feeling ok today. ED visit to [facility] last week for dehydration. N/V/D. She notes last two cycles she has more N/V towards the end of her second week on xeloda. Nausea daily about 2 hours after taking xeloda. This has improved some once she started taking antiemetics scheduled. Had more nausea with vomiting, several times last week. Zofran helped a little, did better with ODTin ED. Diarrhea. [place]cro dehydtrate Denies bleeding. No neuropathy. No peeling [...] to correlate with current findings. Adrienne Bahena APRN.PROCESS DESCRIPTION WRITER I spent a total of 30 minutes on the date of the service which included preparing to see the patient, [id number]-uu-bhnd patient care, completing clinical documentation, obtaining and/or [...] evaluation of this patient. documented in this encounterChildren'S [facility]01-21-2025 NotePrem[facility]01-16-2025 NotePrem[facility]01-16-2025 History of Present illness Narrative* Tessa Spring MD - 04/11/2024 10:59 AM EST Images from the original note were not included. Established Patient Visit REASON FOR VISIT Follow up - CT results I have communicated my name and active licensure. The patient's identity and physical location wereverified at the time of this visit. Either the patient or their legal pharmaceutical representative has been informed of the risks [...] and nausea which required a visit to [facility] where she continued to receive conservative management with episcopalian of bowel function. On follow-up visits, the drain was managed expectantly and was eventually removed a month ago. During this course, the patient experienced significant failure to thrive and weight loss. She eventually underwent an ileocecectomy with wi on 01/04/2024 that showed the following on [...] mouth three times a day with meals. 43547 mL 0 Food Supplement, Lactose-Free (ENSURE HIGH PROTEIN) liqd Take 237 mL by mouth two times a day. 2 times daily between meals 13268 mL 0 Food Supplement, Lactose-Free (ENSURE CLEAR) [...] requiring medication, no history of angina, CHF, GA, cardiac surgery or stents. Denies rest pain, [...] Level: 4 - Moderate Tessa Spring MD [facility] [place] [facility] / [facility] April 11, 2024 [...] is noted. CT ABD/PEL W IVCON (Order #[id number]) on 03/19/2024 - Order Result History Report documented in this encounterChildren'S [facility]01-16-2025 NotePrem[facility]01-15-2025 History of Present illness Narrative* Jayjay (Retail Loss Prevention Officer)Tete - 04/10/2024 5:24 PM EST [facility] [...] been reviewed prior to dispensing the medication. Kettle Skimmer Assessment Patient confirmed: Yes Med/dose confirmed: Yes Supplies needed: No supplies needed Missed doses: Yes Count of missed doses: 4 Reason for missed doses: she was nauseated Estimated days supply on hand: 3 Next cycle/dose due: 04/17/24 Copay amount: 44.8 Copay form of payment: Credit card on file Payment confirmed: Yes Delivery method: FedEx Signature required: Waived on patient request Delivery address: [address] [place] [id number] Delivery date: 04/16/24 Questions or concerns for [...] facility-administered medications on file prior to visit. 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 Est. Tx Plan Start Date: No information available Estimated Start Date Info: Per Dr. Poole's discretion Est. Estimated Treatment Duration: ~3-6 months, monitor Tete Ro (Spling) documented in this encounterChildren'S [facility]01-15-2025 NotePrem[facility]01-13-2025 Telephone encounter Note* Telephone Encounter - Nae Devlin, Research Coordinator - 04/08/2024 2:24 PM EST IRB# [id number]: Vascular events in patients undergoing same-day nonCardiac surgery - [facility] PI: Corrina Benito MD, JAROD, FASA. Outcomes Research Department. Anest[facility] [place]. [facility]. This is a research study note. Patient [...] tothe patient. Everything was entered directly into [employer] during this telephone encounter on 04/02/2024. The study period is now complete. Nae Devlin Outcomes Research [facility]01-13-2025 Miscellaneous Notes* Telephone Encounter - Nae Devlin Research Coordinator - 04/08/2024 2:24 PM EST IRB# [id number]: Vascular events in patients undergoing same-day nonCardiac surgery - [facility] PI: Corirna Benito MD, VILMA OLIVERA. Outcomes Research Department. Anesthesia [place]. [facility]. This is a research study note. Patient [...] tothe patient. Everything was entered directly into [employer] during this telephone encounter on 04/02/2024. The study period is now complete. Nae Devlin Outcomes Research [facility] documented in this encounterChildren'S [facility]01-13-2025 NotePrem[facility]01-13-2025 History of Present illness Narrative* Jeremiah Adame [...] for IV fluid. She will go to [facility] ER for further treatment. Jeremiah Adame MD documented in this encounterChildren'S [facility]01-09-2025 Telephone encounter Note * Telephone Encounter - Fe Edmond APRN.CNP - 04/04/2024 3:03 PM EST Pt notified that we will continue to follow up on the lung nodule per Dr. Poole's request. Pt is agreeable. [facility]01-09-2025 Miscellaneous Notes* Telephone Encounter - Fe Edmond [...] expected 04/27/2024. Order placed. Fe Edmond APRN.CNP documented in this encounterChildren'S [facility]12-30-2024 Telephone encounter Note * Telephone Encounter - Christina Leach - 03/25/2024 3:19 PM EST Spoke with patient and scheduled Christina Leach [facility]12-30-2024 Miscellaneous Notes* Telephone Encounter - Christina Leach [...] comply. Kate Castillo RN documented in this encounterChildren'S Hospital [facility]12-30-2024 Telephone encounter Note * Telephone Encounter - Kate Castillo RN - 03/25/2024 2:35 PM EST Discussed with Adrienne Bahena CNP. Labs/OV in 4 weeks ( around 04/19/24) Judy Castillo RN [facility] Work Phone: [phone] Telephone encounter Note* Telephone Encounter - Kate [...] if unable to comply. Kate Castillo RN [facility]12-30-2024 Telephone encounter Note* Telephone Encounter - Pepe Pablo - 03/25/2024 12:13 PM EST For documentation purpose only- Called patient, left a detail message on phone and mychart. Thank you [facility]12-30-2024 Miscellaneous Notes* Telephone Encounter - Pepe Pablo - 03/25/2024 12:13 PM EST For documentation purpose only- Called patient, left a detail message on phone and mychart. Thank you documented in this encounterChildren'S [facility]12-26-2024 History of Present illness Narrative* Jayjay (Retail Loss Prevention Officer)Tete - 03/21/2024 1:23 PM EST [facility] [...] been reviewed prior to dispensing the medication. Kettle Skimmer Assessment Patient confirmed: Yes Med/dose confirmed: Yes Supplies needed: No supplies needed Missed doses: No Estimated days supply on hand: 0 Next cycle/dose due: 03/27/24 Copay amount: 15.55 Copay form of payment: Credit card on file Payment confirmed: Yes Delivery method: FedEx Signature required: Waived on patient request Delivery address: [address] [place] [id number] Delivery date: 03/26/24 Questions or concerns for [...] facility-administered medications on file prior to visit. [facility] RX SPECIALTY CLINICAL ASSESSMENT - HEMATOLOGY ONCOLOGY V6: Assessment to use: Refill Date of influenza vaccination reminder: 02/07/2024 Date of most recent vaccination assessment: 02/07/2024 Treatment Plan Information: Dx: Stage II colon cancer with high risk features, MMR proficient Tx Hx: surgery Tx Plan: adjuvant capecitabine Medication: capecitabine Dose: CrCl 87ml/min, 1500mg / 1.95u6=0155 mg/m2 Sig: Take 3 tablets (1,500 mg) [...] overdue for some routine vaccinations, enrolled in [facility] reminders. Est. Tx Plan Start Date: No information available Estimated Start Date Info: Per Dr. Poole's discretion Est. Estimated Treatment Duration: ~3-6 months, monitor Tete Ro (Spling) documented in this encounterChildren'S [facility]12-26-2024 NotePrem[facility]12-24-2024 Telephone encounter Note* Telephone Encounter - Fe [...] expected 04/27/2024. Order placed. Fe Edmond APRN.CNP [facility]12-24-2024 Note* Addendum Note - Fe Edmond APRN.CNP - 03/19/2024 12:02 PM ESTAddended by: FE EDMOND on: 03/19/2024 12:02 PM Modules accepted: Orders [facility]12-24-2024 Miscellaneous Notes* Addendum Note - Fe Edmond APRN.CNP - 03/19/2024 12:02 PM ESTAddended by: FE EDMOND on: 03/19/2024 12:02 PM Modules accepted: Orders documented in this encounterChildren'S [facility]12-24-2024 [facility]12-24-2024 History of Present illness Narrative* Fe Edmond APRN.CNP - 03/19/2024 10:52 AM EST Follow Up Diagnosis: Lung Nodule Recommendation: CT Scan Follow up Date: 04/29/2024 Follow-Up Scheduled: No Pulmonary Follow-Up Type: Lung Nodule Surveillance Lung Nodule Program Location: [facility] documented in this encounterChildren'S [facility]12-20-2024 History of Present illness Narrative* Dulce Zhou [...] PATIENT PRESENTS WITH AN IMPLANTABLE OR ATTACHED DIRECTOR PEOPLESOFT: No ALLERGIES: Reviewed and unchanged CONTRAST ALLERGY: [...] 2024 TIME: 2:57 PM documented in this encounterChildren'S Hospital [facility]12-20-2024 NotePremier [facility]12-12-2024 Note* Addendum Note - Tessa Spring MD - 03/07/2024 2:33 PM ESTAddended by: TESSA SPRING on: 03/07/2024 02:33 PM Modules accepted: Level of Service [facility]12-12-2024 Miscellaneous Notes* Addendum Note - Tessa Sprnig MD - 03/07/2024 2:33 PM ESTAddended by: TESSA SPRING on: 03/07/2024 02:33 PM Modules accepted: Level of Service documented in this encounterChildren'S [facility]12-12-2024 NotePrem[facility]12-12-2024 History of Present illness Narrative* Tessa Spring [...] and nausea which required a visit to [facility] where she continued to receive conservative management with episcopalian of bowel function. On follow-up visits, the drain was managed expectantly and was eventually removed a month ago. During this course, the patient experienced significant failure to thrive and weight loss. She eventually underwent an ileocecectomy with wi on 01/04/2024 that showed the following on [...] mouth three times a day with meals. 77273 mL 0 Food Supplement, Lactose-Free (ENSURE HIGH PROTEIN) liqd Take 237 mL by mouth two times a day. 2 times daily between meals 86245 mL 0 Food Supplement, Lactose-Free (ENSURE CLEAR) [...] requiring medication, no history of angina, CHF, GA, cardiac surgery or stents. Denies rest pain, [...] distended. Incision healed. No guarding or rebound. Inside Channel Account Manager present: Yes ASSESSMENT 64-year-old female status post [...] Level: 4 - Moderate Tessa Spring MD [facility] [place] [facility] March 07, 2024 [...] additional findings. CT CHEST WO IVCON (Order #[id number]) on 02/01/2024 - Order Result History Report documented in this encounterChildren'S [facility]12-12-2024 Instructions* Patient Instructions* David Velazquez - 03/07/2024 10:[address] Spring has placed an order for a CT scan of your Abdomen and Pelvis. To schedule this appointment within the [facility], please call [phone]. documented in this encounterChildren'S [facility]12-12-2024 NotePrem[facility]12-05-2024 Telephone encounter Note* Telephone Encounter - Estee Donnelly - 02/29/2024 12:30 PM EST Called and scheduled as directed [facility]12-05-2024 Miscellaneous Notes* Telephone Encounter - Estee Donnelly - 02/29/2024 12:30 PM EST Called and scheduled as directed * Telephone Encounter - Kate Castillo RN - 02/29/2024 10:53 AM EST Patient has a oncology nutrition consult order that needs scheduled. thank you- Judy Castillo RN documented in this encounterChildren'S [facility]12-05-2024 Telephone encounter Note * Telephone Encounter - Kate Castillo RN - 02/29/2024 10:53 AM EST Patient has a oncology nutrition consult order that needs scheduled. thank you- Judy Castillo RN [facility] Work Phone: 1(918) 980-238412-04-2024 Telephone encounter Note* Telephone Encounter - Kate Castillo RN - 02/28/2024 4:05 PM EST Discussed sleep issues with Dr. Poole and he recommends trying Melatonin. Judy Castillo RN Call to patient, states she has tried Melatonin and it gives me nightmares She will continue to use Tylenol PM as needed. Judy Castillo RN [facility] Work Phone: 1([phone]) 378-612412-04-2024 Miscellaneous Notes* Telephone Encounter - Kate Castillo [...] provided. Kate Castillo RN documented in this encounterChildren'S [facility]12-04-2024 Telephone encounter Note * Telephone Encounter - [...] if unable to comply. Kate Castillo RN [facility]12-04-2024 History of Present illness Narrative* Jayjay (Retail Loss Prevention Officer)Tete - 02/28/2024 2:25 PM EST [facility] [...] been reviewed prior to dispensing the medication. Kettle Skimmer Assessment Patient confirmed: No Med/dose confirmed: No Supplies needed: No supplies needed Missed doses: No Estimated days supply on hand: 0 Next cycle/dose due: 03/06/24 Copay amount: 13.95 Copay form of payment: Credit card on file Payment confirmed: Yes Delivery method: FedEx Signature required: Waived on patient request Delivery address: [address] [place] [id number] Delivery date: 03/05/24 Questions or concerns for [...] facility-administered medications on file prior to visit. [facility] RX SPECIALTY CLINICAL ASSESSMENT - HEMATOLOGY ONCOLOGY V6: Assessment to use: Refill Date of influenza vaccination reminder: 02/07/2024 Date of most recent vaccination assessment: 02/07/2024 Treatment Plan Information: Dx: Stage II colon cancer with high risk features, MMR proficient Tx Hx: surgery Tx Plan: adjuvant capecitabine Medication: capecitabine Dose: CrCl 87ml/min, 1500mg / 1.13q0=7203 mg/m2 Sig: Take 3 tablets (1,500 mg) [...] overdue for some routine vaccinations, enrolled in [facility] reminders. Est. Tx Plan Start Date: No information available Estimated Start Date Info: Per Dr. Poole's discretion Est. Estimated Treatment Duration: ~3-6 months, monitor Tete Ro (Spling) documented in this encounterChildren[facility]12-04-2024 [facility]Prem[facility]-27-2024 Telephone encounter Note* Telephone Encounter - Kate Castillo RN - 02/21/2024 9:32 AM EST ORAL ANTI-CANCER AGENTS FOLLOW-UP PHONE CALL/VISIT Patient is on day 8 of Capecitabine (Xeloda) for Colon / Rectal Cancer. Call to patient, message left to call me back and phone/contact number provided. 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 No EMPLOYMENT/FINANCIAL/HEALTH INSURANCE: Employment: Pt is unemployed and reports she has been living off her savings since the beginning ofDecember when she stopped working d/t illness. Income source: None incoming at the moment Insurance: Medicare only Prescription coverage: Yes Is the patient appropriate for referral to [facility] COBRA Assistance program? No Financial Distress: Yes. [...] August 2023 Health Care Durable Power of Group Product Manager: Yes Scanned into EPIC: Yes, August, Guardianship: No Scanned into EPIC:NA Reasons Advanced Directives were not Addressed: NA PATIENT/FAMILY DECISION MAKERS: 1st: Jeanette Garvin (sister) PH: [phone] 2nd: Brittney Koch PH: [phone] 3rd: Calli Alfaro PH: [phone] AD forms completed and scanned into pt's [...] children, and has family who lives in [place]. She reports she has some friends she [...] tab: Yes EVIE Peterson-Roger documented in this encounterChildren'S Hospital [facility]11-22-2024 Telephone encounter Note * Telephone Encounter - Ellyn Zhang RN - 02/16/2024 9:37 AM EST Care Coordination Triage Note [facility] Situation: Patient reports Nausea/Vomiting and Other chest [...] send in an antiemetic to [facility]. Patient instructed to take 1 hour prior to taking xeloda. Ellyn Zhang RN February 16, 2024 9:37 AM [facility]11-22-2024 Miscellaneous Notes* Telephone Encounter - Ellyn Zhang RN - 02/16/2024 9:37 AM EST Care Coordination Triage Note [facility] Situation: Patient reports Nausea/Vomiting and Other chest [...] we will send in an antiemetic to [facility]. Patient instructed to take 1 hour prior to taking xeloda. Ellyn Zhang RN February 16, 2024 9:37 AM documented in this encounterChildren'S Hospital [facility]11-19-2024 Telephone encounter Note * Telephone Encounter - Christina Leach - 02/13/2024 4:25 PM EST Spoke with patient and scheduled as directed. Christina Leach [facility]11-19-2024 Miscellaneous Notes* Telephone Encounter - Christina Leach - 02/13/2024 4:25 PM EST Spoke with patient and scheduled as directed. Christina Leach * Telephone Encounter - Kate Castillo RN - 02/13/2024 3:24 PM EST PSS: Please call patient to schedule CBC/CMP/OV with Dr. Poole in 4 weeks. Judy Castillo RN documented in this encounterChildren'S Hospital Of [facility]11-19-2024 Telephone encounter Note * Telephone Encounter - Kate Castillo RN - 02/13/2024 3:30 PM EST See other phone encounter. Judy Castillo RN [facility] Work Phone: [phone]) 451-933311-19-2024 Miscellaneous Notes* Telephone Encounter - Kate Castillo RN - 02/13/2024 3:30 PM EST See other phone encounter. Judy Castillo RN * Telephone Encounter - Fang Myers - 02/12/2024 3:30 PM EST Patient states she is expecting to receive her chemo medication tomorrow and is asking if there areinstructions before she starts. documented in this encounterChildren'S Hospital Of [facility]11-19-2024 Telephone encounter Note * Telephone Encounter - Kate Castillo RN - 02/13/2024 3:24 PM EST PSS: Please call patient to schedule CBC/CMP/OV with Dr. Poole in 4 weeks. Judy Castillo RN [facility] Work Phone: 1(485) 354-967811-19-2024 Telephone encounter Note* Telephone Encounter - Kate Castillo RN - 02/13/2024 3:19 PM EST ORAL ANTI-CANCER AGENTS EDUCATION patient called today for oral medication education of Xeloda for Colon / Rectal Cancer Anticipated/Scheduled start date: 02/14/24 States she had lab work at [facility] last week and will have results faxed [...] teaching topics as needed. Kate Castillo RN [facility] Work Phone: 1(767) 152-615211-19-2024 Miscellaneous Notes* Telephone Encounter - Kate Castillo RN - 02/13/2024 3:19 PM EST ORAL ANTI-CANCER AGENTS EDUCATION patient called today for oral medication education of Xeloda for Colon / Rectal Cancer Anticipated/Scheduled start date: 02/14/24 States she had lab work at [facility] last week and will have results faxed [...] needed. Kate Castillo RN documented in this encounterChildren'S Hospital Of [facility]11-19-2024 Telephone encounter Note * Telephone Encounter - Brianne Schilling MSW - 02/13/2024 11:12 AM EST Patient spoke with this primary care SW. Patient appears to go to our oncology dept asking aboutfinancial assistance resources for help with bills. This Sw asked if patient were looking to speak with Raj Spann. Patient noted that she is struggling with all types of bills. This Sw noted it may be more beneficial to speak with Zana as she mayhave more financial resources specific to oncology patients. This Sw will forward message to [facility]anaOncology, SW asking that Zana reach out to patient. [facility]11-19-2024 Miscellaneous Notes* Telephone Encounter - Brianne Schilling [...] reach out to patient. documented in this encounterChildren'S Hospital Of [facility]11-18-2024 Telephone encounter Note * Telephone Encounter - Charlesnohelia KennyFang - 02/12/2024 3:30 PM EST Patient states she is expecting to receive her chemo medication tomorrow and is asking if there areinstructions before she starts. [facility] Work Phone: [phone] 856-902011-15-2024 Telephone encounter Note* Telephone Encounter - Cathy Macias RPh - 02/09/2024 3:09 PM EST Patient was contacted to discuss cost of capecitabine, unfortunately medication is unaffordable. Currently no grants are open and no PAP program for Xeloda. [employer] has an internal [place] that patient can apply for. Prescirption pended to [employer]. Office has been included on email to [employer] as well, they may ask for some additional info from office Cathy Macias PharmD, SARITHACP, BCOP Clinical Pharmacist, Oncology [facility] P: , F: Pool: P [facility] Pool #: [id number] [facility]11-15-2024 Miscellaneous Notes* Telephone Encounter - Cathy Macias RPh - 02/09/2024 3:09 PM EST Patient was contacted to discuss cost of capecitabine, unfortunately medication is unaffordable. Currently no grants are open and no PAP program for Xeloda. [employer] has an internal [place] that patient can apply for. Prescirption pended to [employer]. Office has been included on email to [employer] as well, they may ask for some additional info from office Cathy Macias PharmD, SARITHACP, BCOP Clinical Pharmacist, Oncology [facility] P: , F: Pool: P [facility] Pool #: [id number] documented in this encounterChildren'S Hospital [facility]11-11-2024 History of Present illness Narrative* Jayjay (Spling)Tete - 02/05/2024 9:32 AM EST [facility] received prescription(s) for capecitabine [address] Poole's office. Benefits investigation was conducted, indicating that a prior authorization is not required at this time per patient's plan with Medicare PART B. Prescriptions will now be processed through [facility] Special[facility] for determination of next steps. Tete Ro (S[place]) Addendum February 05, 2024 2:30 PM : Patient does NOT have a supplement, copay is $77.76. Noted coverage under HCAP in chart. If financially toxic may be able to suggest 5-fu. Cathy Macias, PharmD, BCACP, BCOP Clinical Pharmacist, Oncology [facility] P: , F: Pool: P [facility] Pool #: [id number] documented in this encounterChildren'S [facility]11-11-2024 [facility]Prem[facility]11-11-2024 NotePrem[facility]11-11-2024 [facility]Prem[facility]11-09-2024 Miscellaneous Notes* [facility] Agency Yulia Schwartz RN - 02/03/2024 9:42 AM EST SITUATION: [facility] agency discharge visit completed today. only patient [...] for additional medical questions/concerns. documented in this encounterChildren'S Hospital [facility]11-09-2024 Patient's home Note* [facility] Agency DC - Yulia Xie RN - 02/03/2024 9:42 AM EST SITUATION: [facility]pc agency discharge visit completed today. only patient [...] with Dr. Moss for additional medical questions/concerns. [facility] Work Phone: [phone]) 874-451511-08-2024 Telephone encounter Note* Telephone Encounter - David Velazquez - 02/02/2024 11:31 AM EST Phoned patient but no answer. Left VM letting patient know Robaxin order was signed and sent to [facility]. Provided callback number if she has any questions. David Velazquez ENGINE RESEARCH ENGINEER Implementation Architect for Dr. Hutchison and Bryanna Luna, LUZMA Covering for Dr. Spring [facility]11-08-2024 Miscellaneous Notes* Telephone Encounter - David Velazquez - 02/02/2024 11:31 AM EST Phoned patient but no answer. Left VM letting patient know Robaxin order was signed and sent to [facility]. Provided callback number if she has any questions. David Velazquez RN BSN Implementation Architect for Dr. Hutchison and Bryanna Luna, LUZMA [...] at this time. David Velazquez RN BSN Implementation Architect for Dr. Hutchison and Bryanna Luna, LUZMA Covering for Dr. Spring * Telephone Encounter - David Velazquez - 01/31/2024 1:58 PM EST Phoned patient, but no answer. Left . David Velazquez RN BSN Implementation Architect for Dr. Hutchison and Bryanna Luna, PROCESS DESCRIPTION WRITER Covering for Dr. Spring * Telephone Encounter - Yanna Rousseau - 01/31/2024 11:50 AM EST Patient called, she is having pain at her surgical site. Her surgery was on 01/02. Colectomy partial open w/ ileocolostomy. Please call her at [phone], thank you! documented in this encounterChildren'S Hospital [facility]11-08-2024 Miscellaneous Notes* CARE COORDINATION - Joe Williamson RN - 02/02/2024 11:10 AM EST Patient called per this nurse. Patient was to be seen today Mon02/02/24. However, due to staffing, this Nurse contacted patient tosee if she would be willing to be seen Sat 02/02 instead? Patient is agreeable to be seen Sat by her primary nurse. Schedule was updated. documented in this encounterChildren'S [facility]11-08-2024 Patient's home Note* CARE COORDINATION - Joe Williamson RN - 02/02/2024 11:10 AM EST Patient called per this nurse. Patient was to be seen today Mon02/02/24. However, due to staffing, this Nurse contacted patient tosee if she would be willing to be seen Sat 02/02 instead? Patient is agreeable to be seen Sat by her primary nurse. Schedule was updated. [facility] Work Phone: [phone]) 756-664011-07-2024 History of Present illness Narrative* Jimmie Poole [...] which included preparing to see the patient, [id number] patient care, completing clinical documentation, obtaining and/or [...] 01, 2024 10:51 AM documented in this encounterChildren'S Hospital [facility]11-06-2024 Telephone encounter Note * Telephone Encounter - [...] at this time. David Velazquez RN BSN Implementation Architect for Dr. Hutchison and Bryanna Luna, PROCESS DESCRIPTION WRITER Covering for Dr. Spring [facility]11-06-2024 Telephone encounter Note* Telephone Encounter - David Velazquez - 01/31/2024 1:58 PM EST Phoned patient, but no answer. Left VM. David Velazquez RN BSN Implementation Architect for Dr. Hutchison and Bryanna Luna, PROCESS DESCRIPTION WRITER Covering for Dr. Spring [facility]11-06-2024 Telephone encounter Note* Telephone Encounter - Yanna Rousseau - 01/31/2024 11:50 AM EST Patient called, she is having pain at her surgical site. Her surgery was on 01/02. Colectomy partial open w/ ileocolostomy. Please call her at [phone], thank you! [facility]11-04-2024 Instructions* Patient Instructions* Fe Edmond APRN.PROCESS DESCRIPTION WRITER - 01/29/2024 1:39 PM EST Images from [...] small number of people the nodule may returned case inspector to be an early cancer. Your doctor [...] cancer? Fewer than 5% of all nodules returned case inspector to be cancer What if my nodule [...] smoking. THAT IS WRONG. documented in this encounterChildren'S Hospital [facility]11-04-2024 History of Present illness Narrative* Fe Edmond APRN.CNP - 01/29/2024 10:03 AM EST Images from the original note were not included. [facility] INCIDENTAL LUNG NODULE PROGRAM Impression / Recommendations [...] Nodule Surveillance Lung Nodule Program Location: [facility] Please enter a follow up date: 02/01/2024 for review of final radiology report Requesting Provider: Amish Castorena Reason for the Consult Lakesha Koch presents [...] (99 lb 6.8 oz)] Modified Medical Research [place] Dyspnea Scale (MMRC) I only get breathless with strenous exercise 0 Other Pertinent Clinical Risk Factors: Significant exposures (1 year or more of exposure): None. Lived in [place] for 14 years. Recent travel history: NA [...] DATE OF EXAM: Sep 16 2023 8:48AM [facility] 0539 - CT CHEST W IVCON / [...] the beginning of this note. Fe Edmond APRN.PROCESS DESCRIPTION WRITER Pulmonary & Critical Care Medicine January 29, 2024 10:09 AM documented in this encounterChildren'S Hospital [facility]11-01-2024 Telephone encounter Note * Telephone Encounter - Montserrat Yeager PTA - 01/26/2024 2:38 PM EDT Unmade PT visit today due DR appointment [facility] Work Phone: [phone]) 939-125011-01-2024 Miscellaneous Notes* Telephone Encounter - Montserrat Yeager PTA - 01/26/2024 2:38 PM EDT Unmade PT visit today due DR appointment documented in this encounterChildren'S Hospital [facility]11-01-2024 Miscellaneous Notes* NANCY RODRIGUEZ Routine - Yulia Xie RN - 01/26/2024 2:06 PM EDT SITUATION: Fpc routine visit completed today. only patient present [...] get made, ?disc dc documented in this encounterChildren'S Hospital [facility]11-01-2024 Patient's home Note* Routine - Yulia Xie RN - 01/26/2024 2:06 PM EDT SITUATION: Fpc routine visit completed today. only patient present [...] did nutrition referral get made, ?disc dc [facility] Work Phone: 1([phone]) 294-960411-01-2024 History of Present illness Narrative* Tessa Spring MD - 01/26/2024 1:08 PM EDT Images from the original note were not included. [facility] Multidisciplinary GI Tumor Board Primary Disease: [...] and nausea which required a visit to [facility] where she continued to receive conservative management with episcopalian of bowel function. On follow-up visits, the [...] on complaint of assessment. Genetic counseling referral: DELMY Eligibility for Clinic Trials: NA Supportive Care [...] the various treatment options Tessa Spring MD [facility] [place] [facility] documented in this encounterChildren'S Hospital [facility]11-01-2024 History of Present illness Narrative* Dulce Zhou [...] PATIENT PRESENTS WITH AN IMPLANTABLE OR ATTACHED DIRECTOR PEOPLESOFT: No RADIOLOGY DEPARTMENT: CT; Exam(s) Completed: Chest PERIPHERAL IV DATA: Not applicable SIGNED BY: RT Oscar(R) January 26, 2024 8:55 AM documented in this encounterChildren'S Hospital [facility]10-29-2024 Miscellaneous Notes* PT ROUTINE/REASSESSMENT/RECERT/CASE MGMT - Montserrat [...] summary for intervention/education details. documented in this [facility]10-29-2024 Patient's home Note* PT ROUTINE/REASSESSMENT/RECERT/CASE [...] able See intervention summary for intervention/education details. [facility] Work Phone: [phone]) 139-276410-29-2024 Telephone encounter Note* Telephone Encounter - David Velazquez - 01/23/2024 9:21 AM EDT Phoned patient to let her know that signed paperwork was faxed this morning. Patient very appreciative for the follow-up call. David Velazquez RN BSN Implementation Architect for Dr. Hutchison and Bryanna Luna, PROCESS DESCRIPTION WRITER Covering for Dr. Spring [facility]10-29-2024 Miscellaneous Notes* Telephone Encounter - David Velazquez - 01/23/2024 9:21 AM EDT Phoned patient to let her know that signed paperwork was faxed this morning. Patient very appreciative for the follow-up call. David Velazquez RN BSN Implementation Architect for Dr. Hutchison and Bryanna Luna, PROCESS DESCRIPTION WRITER Covering for Dr. Spring * Telephone Encounter - Pepe Pablo - 01/19/2024 10:48 AM EDT Kina, Received a call from the patient, she was seen yesterday by Dr. Spring. Per patient, she receivedpaperwork from Dr. Spring for the handicap sticker, but it was missing his signature and the V did not accept it. Patient is requesting a signed form to be faxed to [phone] ([facility]). Thank you documented in this encounterChildren'S Hospital [facility]10-25-2024 Miscellaneous Notes* PT ROUTINE/REASSESSMENT/RECERT/CASE MGMT - Shelby Brown, PT - 01/19/2024 2:06 PM EDT SITUATION: [...] summary for intervention/education details. documented in this encounterChildren'S [facility]10-25-2024 Patient's home Note* PT ROUTINE/REASSESSMENT/RECERT/CASE SUSANNA - Shelby Brown, PT - 01/19/2024 2:06 PM EDT SITUATION: [...] visit See intervention summary for intervention/education details. [facility] Work Phone: 1(301) 738-923310-25-2024 Miscellaneous Notes* SN Routine - Yulia Xie RN - 01/19/2024 12:26 PM EDT SITUATION: Fpc routine visit completed today. only patient present [...] out that she has colon CA at [facility] f/u vs yesterday. Vitals (see flow [...] 87#; she would like to see a finance effectiveness manager. SN intructed her to have oncology make [...] assessment and instruction, ?appetite? documented in this encounterChildren'S Hospital [facility]10-25-2024 Patient's home Note* HH SN Routine - Yulia Xie RN - 01/19/2024 12:26 PM EDT SITUATION: Fpc routine visit completed today. only patient present [...] out that she has colon CA at [facility] f/u vs yesterday. Vitals (see flow [...] 87#; she would like to see a finance effectiveness manager. SN intructed her to have oncology make [...] specific): post op assessment and instruction, ?appetite? [facility] Work Phone: [phone]) 485-2373984530-25-4462 Telephone encounter Note* Telephone Encounter - Pepe Pablo - 01/19/2024 10:48 AM EDT Kina, Received a call from the patient, she was seen yesterday by Dr. Spring. Per patient, she receivedpaperwork from Dr. Spring for the handicap sticker, but it was missing his signature and the [facility] did not accept it. Patient is requesting a signed form to be faxed to [phone] ([facility]). Thank you [facility]10-24-2024 Telephone encounter Note* Telephone Encounter - Estee Donnelly - 01/18/2024 3:59 PM EDT Called patient scheduled first opening and added to wait list [facility]10-24-2024 Miscellaneous Notes* Telephone Encounter - Estee Donnelly - 01/18/2024 3:59 PM EDT Called patient scheduled first opening and added to wait list * Telephone Encounter - Bryanna Gonzalez LPN - 01/18/2024 1:42 PM EDT Okay to schedule next wiw patient appointment with either provider. Bryanna Gonzalez LPN * Telephone Encounter - Alysa Velazquez - 01/18/2024 12:50 PM EDT Patient is being referred by Dr Spring to see Oncology. DX: Colon Cancer Insurance: Medicaid [place] Patient's referral is for [place]. I spoke to patient and she would much rather be seen closer to home in [place]. I was going to warm transfer patient but she was getting another call. I advised patient I would send message for scheduling. Please review and advise documented in this encounterChildren'S [facility]10-24-2024 Telephone encounter Note * Telephone Encounter - Bryanna Gonzalez LPN - 01/18/2024 1:42 PM EDT Okay to schedule next wiw patient appointment with either provider. Bryanna Gonzalez LPN [facility]10-24-2024 Telephone encounter Note* Telephone Encounter - Alysa Velazquez - 01/18/2024 12:50 PM EDT Patient is being referred by Dr Spring to see Oncology. DX: Colon Cancer Insurance: Medicaid [place] Patient's referral is for [place]. I spoke to patient and she would much rather be seen closer to home in [place]. I was going to warm transfer patient but she was getting another call. I advised patient I would send message for scheduling. Please review and advise [facility]10-24-2024 History of Present illness Narrative* Tessa Spring [...] Will continue to follow Tessa Spring MD [facility] [place] [facility] * David Velazquez [...] nodes, negative for malignancy (0/22). David Velazquez ENGINE RESEARCH ENGINEER Implementation Architect for Dr. Hutchison and Bryanna Luna, PROCESS DESCRIPTION WRITER Covering for Dr. Spring documented in this encounterChildren'S [facility]10-22-2024 Miscellaneous Notes* PT ROUTINE/REASSESSMENT/RECERT/CASE MGMT - Dash [...] summary for intervention/education details. documented in this encounterChildren'S [facility]10-22-2024 Patient's home Note* PT ROUTINE/REASSESSMENT/RECERT/CASE SUSANNA - Dash Leonard, PT - 01/16/2024 9:30 [...] training. See intervention summary for intervention/education details. [facility] Work Phone: 1(445) 687-159410-19-2024 Miscellaneous Notes* PT EVALUATION - Shelby Brown, PT - 01/13/2024 1:36 PM EDT SITUATION: only patient present during today's visit. patient reports the following since the last homecare visit: medications/allergies--no changes, no fall. patient reports all things considered I'm doing better i think. BACKGROUND: Diagnoses (reason for Home Care): [facility] on 01/03/24-01/08/24. Encounter for surgical aftercare following [...] She cont to have illness /infection [facility] 01/02 - for an ileocecotomy PLF: [...] lifting >15 lbs ASSESSMENT: Patient evaluated by [facility] physical therapy. Reviewed and explained homecare [...] summary for intervention/education details. documented in this encounterChildren'S [facility]10-19-2024 Patient's home Note* PT EVALUATION - Shelby Brown, PT - 01/13/2024 1:36 PM EDT SITUATION: only patient present during today's visit. patient reports the following since the last homecare visit: medications/allergies--no changes, no fall. patient reports all things considered I'm doing better i think. BACKGROUND: Diagnoses (reason for Home Care): [facility] on 01/03/24-01/08/24. Encounter for surgical aftercare following [...] She cont to have illness /infection [facility] 01/02 - for an ileocecotomy PLF: [...] lifting >15 lbs ASSESSMENT: Patient evaluated by [facility] Home[facility] physical therapy. Reviewed and explained homecare [...] commode See intervention summary for intervention/education details. [facility] Work Phone: [phone] Telephone encounter Note* Telephone Encounter - Pricila Peace RN - 01/11/2024 8:52 PM EDT Kina. I am the home connect lpn who saw [facility] today for SOC. When I ran patients medication interaction report it came back as a possible severe interaction between: Diflucan and Oxycodone. Wanted to make you aware. Thank you. Pricila Peace RN [facility] Work Phone: [phone] Miscellaneous Notes* Telephone Encounter - Pricila Peace RN - 01/11/2024 8:52 PM EDT Kina. I am the home connect lpn who saw Lakesha today for SOC. When I ran patients medication interaction report it came back as a possible severe interaction between: Diflucan and Oxycodone. Wanted to make you aware. Thank you. Pricila Peace RN documented in this encounterChildren'S Hospital Of [facility]10-17-2024 Miscellaneous Notes* HH SN SOC - Pricila Peace RN - 01/11/2024 4:41 PM EDT SITUATION: [facility] SOC visit completed today. sister also present during today's visit. patient reports the following: Allergies--reviewed Medications--full medication reconciliation completed Falls--None DME-Reviewed and added to chart BACKGROUND: Discharged/Referral from [facility] on 01/08/24 following treatment for .Encounter [...] pleasant and cooperative with sn. sn reviewed [facility] booklet with pt. pt is in [...] appetite any better? diarrhea? documented in this encounterChildren'S Hospital [facility]10-17-2024 Patient's home Note* SN SOC - Pricila Peace RN - 01/11/2024 4:41 PM EDT SITUATION: [facility] SOC visit completed today. sister also present [...] pleasant and cooperative with sn. sn reviewed [facility] booklet with pt. pt is in [...] specific): incision check, appetite any better? diarrhea? [facility] Work Phone: [phone] Telephone encounter Note* Telephone Encounter - Rema [...] touch base with patient tomorrow carlota marie. [facility]10-16-2024 Miscellaneous Notes* Telephone Encounter - Rema Beltre [...] marie. * Telephone Encounter - Yanna Rousseau - 01/10/2024 3:19 PM EDT Please call patient's sister, Bianka at [phone]. Patient had surgery on 01/02 discharged on Sunday 01/07. Started having nausea & vomitting all day today. Please call Bianka and elisha, she is with the patient. Perforated Appendix. Thank you! documented in this encounterChildren'S Hospital Of [facility]10-16-2024 Telephone encounter Note * Telephone Encounter - Yanna Rousseau - 01/10/2024 3:19 PM EDT Please call patient's sister, Bianka at [phone]. Patient had surgery on 01/02 discharged on Sunday 01/07. Started having nausea & vomitting all day today. Please call Bianka and elisha, she is with the patient. Perforated Appendix. Thank you! [facility]10-14-2024 NoteEn[facility] Rehabilitation Hospital Of [facility] [id number] [facility] 01-08-2024 NoteEncompass Health Rehabilitation Hospital Of New [id number] Telephone encounter Note* Telephone Encounter - Rebecca Jiang LPN - 01/08/2024 1:20 PM EDT Spoke with Alexx Oglesby is no longer at the practice . She stated Christie Saenz has beenfollowing the Lakesha August. Alexx is asking if Christie Baptiste will follow for [facility] and will return the call . [facility] Work Phone: [phone] Miscellaneous Notes* Telephone Encounter - Rebecca Jiang LPN - 01/08/2024 1:20 PM EDT Spoke with Alexx Oglesby is no longer at the practice . She stated Christie Saenz has beenfollowing the Lakesha August. Alexx is asking if Christie Baptiste will follow for [facility] and will return the call . * Telephone Encounter - Rebecca Jiang LPN - 01/08/2024 12:23 PM EDT Left a VM for Mary Moss regarding HHC order. documented in this encounterChildren'S Hospital Of Columbus10-14-2024 Telephone encounter Note * Telephone Encounter - Olga Maria - 01/08/2024 1:05 PM EDT Date/Time: 01/08/2024 1:05 PM Spoke with LAKESHA KOCH @ phone #: [phone] (Home Phone) - Preferred # for contact: [phone] Have you received help from a home care company in the last 60 days? NO Are you agreeable to [facility] services? YES What address will we be seeing you at? [address] [facility] [address] Do you have any upcoming appointments or things we need to schedule around? 01/15/24 Do you have a teachable CG or can you manage your care independently? CG Have you received the flu shot? NO If so, when and where? N/A [facility] Work Phone: [phone] Miscellaneous Notes* Telephone Encounter - Olga Maria - 01/08/2024 1:05 PM EDT Date/Time: 01/08/2024 1:05 PM Spoke with LAKESHA KOCH @ phone #: [phone] (Home Phone) - Preferred # for contact: [phone] Have you received help from a home care company in the last 60 days? NO Are you agreeable to [facility] services? YES What address will we be seeing you at? [address] [facility] [address] Do you have any upcoming appointments or things we need to schedule around? 01/15/24 Do you have a teachable CG or can you manage your care independently? CG Have you received the flu shot? NO If so, when and where? N/A documented in this encounterChildren'S Hospital Of [facility]10-14-2024 Telephone encounter Note * Telephone Encounter - Rebecca Jiang LPN - 01/08/2024 12:23 PM EDT Left a VM for Mary Moss regarding C order. [facility]10-14-2024 NoteEncompass Health Rehabilitation Hospital Of New [id number] [facility] 01-06-2024 [facility]10-11-2024 [facility]10-11-2024 Note [facility] [id number] [facility]10-10-2024 NoteHNO ID: [id number] Author: IRON SALGADO RN Service: Nursing Author Type: Registered Nurse Type: Nursing Progress Note Filed: 01/04/2024 05:46 Note Text: Other: 0545- pt's hgb dropped to 7.6 from 9.6 . Page sent out to [facility] 01-03-2024 [facility]10-09-2024 [facility]10-09-2024 Note [facility] [id number] [facility]10-03-2024 Telephone encounter Note* Telephone Encounter - Rema Beltre RN - 12/28/2023 1:[address] Spring sent pain medication to patients preferred pharmacy. Patient updated. [facility]10-03-2024 Miscellaneous Notes* Telephone Encounter - Rema Beltre [...] and let her know. Verified pharmacy in [facility] [place] is her preferred pharmacy. Patient thankful for return call. * Telephone Encounter - Pepe Pablo - 12/27/2023 10:56 AM EDT Kina, Received a call from the patient. She said she is experiencing pain in lower abdomen and wondering if Dr. Spring can prescribe medication stronger than Tylenol as her surgery is scheduled on 01/03/2024. Thank you documented in this encounterChildren'S Hospital Of [facility]10-03-2024 History and physical note * Lisbeth Alford PA-C - 12/28/2023 9:20 AM EDT HISTORY AND PHYSICAL EXAMINATION SERVICE DATE: 12/28/2023 SERVICE TIME: 10:48 AM PRIMARY CARE PHYSICIAN: Mary Moss CNP, PROCESS DESCRIPTION WRITER REASON FOR VISIT: Lakesha Koch is a [...] manage symptoms. Procedure scheduled on 01/03/2024 at [facility]. REVIEW OF SYSTEMS: General: No weight loss, [...] chest pain, CHF, DVT/PE, hyperlipidemia, hypertension, recent GA, murmur/valvular heart disease, open heart surgery and [...] 348 QTC Calculation (Bazett) 441 Calculated P David 76 Calculated R David 8 Calculated T David 70 Impression NORMAL SINUS RHYTHM LOW VOLTAGE QRS, CONSIDER PULMONARY DISEASE, PERICARDIAL EFFUSION, OR NORMAL VARIANT NONSPECIFIC T WAVE ABNORMALITY ABNORMAL ECG Confirmed by MALINI PÉREZ MD ([id number]) on 09/30/2023 11:21:02 AM Recent Results (from the past 84422 hour(s)) ECHO Collection Time: 09/18/23 8:28 AM [...] large neck Non-male patient STOP-Bang Score: 1 [id number] Score: Age: <65 Sex: female CHF history: No Hypertension history: No Stroke/TIA/thromboembolism history: No Vascular disease history: No Diabetes history: No [id number] Score: 1 ANESTHESIA FINDINGS: Intubation History: No [...] DATE: 12/28/2023 TIME: 10:48 AM PAGER/CONTACT #: [facility]10-03-2024 History and physical note* Lisbeth Alford PA- C - 12/28/2023 9:20 AM EDT HISTORY AND PHYSICAL EXAMINATION SERVICE DATE: 12/28/2023 SERVICE TIME: 10:48 AM PRIMARY CARE PHYSICIAN: Mary Moss, PROCESS DESCRIPTION WRITER, PROCESS DESCRIPTION WRITER REASON FOR VISIT: Lakesha Koch is a [...] Admin: COVID-19 vaccine, age 12+ yr, bivalent (Jet-BIONTECH) 03/01/2021 Imm Admin: COVID-19 original vaccine, age 12+ yr, monovalent (Jet- BIONT[place] - PURPLE [facility]) 07/01/2020 Imm Admin: COVID-19 original vaccine, age 12+ yr, monovalent (Poxel - PURPLE TOP) Only the first 3 history entries have been loaded, but more history exists. CHIEF COMPLAINT: Pre-Op HPI: Lakesha Koch is a 63 year old female presenting for pre-anesthesia consultation. Pt has history of perforated appendix. Above procedure recommended to manage symptoms. Procedure scheduled on 01/03/2024 at [facility]. REVIEW OF SYSTEMS: General: No weight loss, [...] chest pain, CHF, DVT/PE, hyperlipidemia, hypertension, recent GA, murmur/valvular heart disease, open heart surgery and [...] 348 QTC Calculation (Bazett) 441 Calculated P David 76 Calculated R David 8 Calculated T David 70 Impression NORMAL SINUS RHYTHM LOW VOLTAGE QRS, CONSIDER PULMONARY DISEASE, PERICARDIAL EFFUSION, OR NORMAL VARIANT NONSPECIFIC T WAVE ABNORMALITY ABNORMAL ECG Confirmed by MALINI PÉREZ MD ([id number]) on 09/30/2023 11:21:02 AM Recent Results (from the past 82604 hour(s)) ECHO Collection Time: 09/18/23 8:28 AM [...] large neck Non-male patient STOP-Bang Score: 1 [id number] Score: Age: <65 Sex: female CHF history: No Hypertension history: No Stroke/TIA/thromboembolism history: No Vascular disease history: No Diabetes history: No [id number] Score: 1 ANESTHESIA FINDINGS: Intubation History: No [...] [facility] or Procedure: Answer: [place] Order Specific Question: Status of surgery/procedure: Answer: Scheduled Order Specific Question: Date of surgery/procedure: Answer: 01/03/2024 Instructions Given to Patient: Instructions located in the after visit summary. Patient given verbal and written preop instructions and voices comprehension and compliance. SIGNATURE: Lisbeth Alford PA-C PATIENT NAME: Lakesha Koch DATE: 12/28/2023 TIME: 10:48 AM PAGER/CONTACT #: documented in this encounterChildren'S Hospital Of [facility]10-03-2024 Instructions* Patient Instructions* Lisbeth Alford PA-C - 12/28/2023 9:05 AM EDT Images from the original note were not included. [facility] Pre-Anesthesia Consultation Clinic PATIENT PREOPERATIVE INSTRUCTIONS Tessa Spring MD has scheduled you for your procedure at this surgery center: [facility]: [phone] --[address] [address]. Please check in on the1st floor at [...] Procedures: - YOU MUST HAVE A RESPONSIBLE COMMERCIAL BAKING TEACHER TAKE YOU HOME. A DENTURE CONTOUR WIRE SPECIALIST OR RATE CLERK CANNOT BE MADE A RESPONSIBLE COMMERCIAL BAKING TEACHER. - We recommend that a responsible person stays with you overnight to take care of you. - You cannot stay in a hotel alone after outpatient surgery. You will not be permitted to have yoursurgery, if you do not have someone to take care of you. If you already have an Advance Directive, please fax a copy to [phone] or email to for it to be [...] Lisbeth Alford PA-C Pre-Anesthesia Consultation Clinic (P[facility]) Lou [phone] documented in this encounterChildren'S Hospital Of [facility]10-02-2024 Telephone encounter Note * Telephone Encounter - [...] and let her know. Verified pharmacy in [facility] in [place] is her preferred pharmacy. Patient thankful for return call. [facility]10-02-2024 Telephone encounter Note* Telephone Encounter - Pepe Pablo - 12/27/2023 10:56 AM EDT Kina, Received a call from the patient. She said she is experiencing pain in lower abdomen and wondering if Dr. Spring can prescribe medication stronger than Tylenol as her surgery is scheduled on 01/03/2024. Thank you [facility]09-23-2024 History and physical note* Tessa Spring MD [...] and nausea which required a visit to [facility] where she continued to receive conservative management with episcopalian of bowel function. On follow-up visits, the [...] mouth three times a day with meals. 11340 mL 0 Food Supplement, Lactose-Free (ENSURE HIGH PROTEIN) liqd Take 237 mL by mouth two times a day. 2 times daily between meals 44501 mL 0 Food Supplement, Lactose-Free (ENSURE CLEAR) [...] requiring medication, no history of angina, CHF, GA, cardiac surgery or stents. Denies rest pain, [...] but no obvious peritonitis. Drain site healed. Inside Channel Account Manager present: Yes ASSESSMENT 63-year-old female status post [...] Level: 5 - High Tessa Spring MD [facility] December 18, 2023 [facility]09-23-2024 History and physical note* Tessa Spring MD [...] and nausea which required a visit to [facility] where she continued to receive conservative management with episcopalian of bowel function. On follow-up visits, the [...] mouth three times a day with meals. 76331 mL 0 Food Supplement, Lactose-Free (ENSURE HIGH PROTEIN) liqd Take 237 mL by mouth two times a day. 2 times daily between meals 13903 mL 0 Food Supplement, Lactose-Free (ENSURE CLEAR) [...] requiring medication, no history of angina, CHF, GA, cardiac surgery or stents. Denies rest pain, [...] but no obvious peritonitis. Drain site healed. Inside Channel Account Manager present: Yes ASSESSMENT 63-year-old female status post [...] Level: 5 - High Tessa Spring MD [facility] December 18, 2023 documented in this encounterChildren'S Hospital Of Columbus09-23-2024 Nurse Note* Fátima Lubin MA - 12/18/2023 10:01 AM EDT What is the reason for your visit today? Consult Perforated appendix Who is your referring physician? Christian Genroger Are you having poor oral intake? NO Have you had unintentional weight loss of 15 lbs/7 Kg in the last 3-6 months? NO Bowels: watery Wound: Temperature: No Drains: No [facility]09-23-2024 Nurse Note* Fátima Lubin MA - 12/18/2023 10:01 AM EDT What is the reason for your visit today? Consult Perforated appendix Who is your referring physician? [place] [facility] Are you having poor oral intake? NO Have you had unintentional weight loss of 15 lbs/7 Kg in the last 3-6 months? NO Bowels: watery Wound: Temperature: No Drains: No documented in this encounterChildren'S Hospital Of Columbus09-23-2024 History of Present illness Narrative* Rema Beltre RN - 12/18/2023 9:30 AM EDT New/Est pt: New patient Reason for apt: perforated appendix Medical Hx: anemia, depression, failure to thrive, seizures Surgical Hx: ex lap (08/2023) Imagin09/04/23: CT abd/pelvis Scanned Documents View External Imaging - CT Scan [ID [id number]] Labs: Latest Reference Range & Units 09/26/23 [...] 15 mmol/L 12 eGFR >=60 mL/min/1.73m 98 [facility] Reference Range & Units 09/26/23 12:10 WBC [...] Abs Lymph 1.00 - 4.00 k/uL 1.43 Perry% % 6.8 Abs Perry <0.87 k/uL 0.64 Eosin% % 3.5 Abs Eosin <0.46 k/uL 0.33 Baso% % 0.9 Abs Baso <0.11 k/uL 0.08 Immature Gran % % 0.9 IMMATURE GRANS (ABS) <0.10 k/uL 0.08 NRBC /100 WBC 0.0 Absolute nRBC <0.01 k/uL <0.01 documented in this encounterChildren'S Hospital Of Columbus09-23-2024 Instructions* Patient Instructions* Pipe Estevez MD - [...] into assistive devices [email or web address] documented in this encounterChildren'S Hospital Of Columbus09-23-2024 History of Present illness Narrative* Pipe Estevez MD - 12/18/2023 8:28 AM EDT December 18, 2023 Pipe Estevez MD [facility] [address] [place] [address] PCP: Mary Moss CNP ([facility]) [address] [place] [address] Referring Physician: Cristobal Junior APRN.PROCESS DESCRIPTION WRITER [address] [facility] [id number] Lakesha Koch : 1960 History of Present [...] on the day of service, which included oweq-zb-akci patient care, completing clinical documentation, obtaining and/or reviewing separately obtained history, performing a medically appropriate examination, counseling and educating the patient/family/caregiver, ordering medications, tests, or procedures, communicating with other HCPs (not separately reported), independently interpreting results (not separately reported), and communicating results to the patient/family/caregiver. Thank you for including me in the care of this interesting patient. Pipe Estevez MD Staff Neurologist [facility] Cc: documented in this encounterChildren'S Hospital Of Columbus09-09-2024 History of Present illness Narrative* Amish Castorena APRN.PROCESS DESCRIPTION WRITER - 12/04/2023 8:52 AM EDT Incidental Lung Nodule Enrollment Outreach attempt: 1st Attempt Outreach status: Complete Enrolled in Lung Nodule program: Yes Lung Nodule outreach: Enrolled Lung Nodule Program Location: [place] Called patient regarding her CT Chest dated 09.16.2023 that incidentally showed lung nodules. She is aware and is scheduled on 01/29/2024 at 11 am to see Fe Edmond CNP in the lung noduleclinic. Amish Castorena APRN.LUZMA documented in this encounterChildren'S Hospital Of Columbus08-14-2024 Telephone encounter Note * Telephone Encounter - Katt Duron - 11/08/2023 8:32 AM EDT I called and spoke to patient regarding her appointment with RAMSES Reza this morning with [facility]. The appointment note states bowel obstruction non op managed. Patient was not sure why this was made. She was seen 10/10 by a gastroenterology and a 10/11 mgMEDIAhart message to colorectal referral has not been read by patient. She has been seen at [facility] recently. Confirmed cancelling with our provider; recommended she discuss what further follow-up is needed through her current providers. Advised to contact her PCP for a vesk-aj-eukt release. Katt Quiñonez [facility]08-14-2024 Miscellaneous Notes* Telephone Encounter - Katt Duron - 11/08/2023 8:32 AM EDT I called and spoke to patient regarding her appointment with RAMSES Reza this morning with [facility]. The appointment note states bowel obstruction non op managed. Patient was not sure why this was made. She was seen 10/10 by a gastroenterology and a 10/11 mgMEDIAhart message to colorectal referral has not been read by patient. She has been seen at [facility] recently. Confirmed cancelling with our provider; recommended she discuss what further follow-up is needed through her current providers. Advised to contact her PCP for a yonx-ot-jqwx release. Katt Quiñonez documented in this encounterChildren'S Hospital Of Columbus07-30-2024 History of Present illness Narrative* Marisa Monaco - 10/24/2023 3:38 PM EDT Incidental Lung Nodule Enrollment Outreach attempt: 3rd Attempt Outreach status: Complete Enrolled in Lung Nodule program: No Declined reason: Other Lung Nodule Program Location: [place] Two letter attempts, no response. Discharge letter sent. documented in this encounterChildren'S Hospital Of Columbus07-29-2024 Instructions* Patient Instructions* Cristobal Junior APRN.CNP - [...] or sooner as needed. documented in this encounterChildren'S Hospital Of Columbus07-29-2024 History of Present illness Narrative* Christie Hylton MD - 10/23/2023 9:14 AM EDT [facility] Patient Name: Lakesha Koch Date of : 1960 FOLLOW-UP EPILEPSY CLINIC NOTE 10/23/2023 CHIEF COMPLAINT: epilepsy Last seen in Epilepsy Department: 08/01/2023, Ashly Lange CNP CLINICAL SUMMARY: Ms. Koch is a 63-year-old right-handed woman followed at [facility] outpatient clinic for further management [...] it has been several months. 08/01/2023 VV judirene Lange, PROCESS DESCRIPTION WRITER Patient reports that she's had 21 seizures [...] known triggers/changes. She works at a local [employer], normally 7-11A but employer is accommodating in [...] insomia Switched to Topamax over the summer. [place] like Topamax helped even more with seizure [...] No - Significant head trauma No - APPRENTICE STYLIST Infection No - Other pre-existing APPRENTICE STYLIST disease (example - tumor, vascular disease) No - brain injury No - Developmental Delay No -Febrile Seizures No - Family history of seizures Anticonvulsant History: -Current AEDs: Valproate 750 mg BID Rescue clonazepam 0.25mg PRN (never used) -Prior AEDs: Levetiracetam (irritable, insomnia) Topiramate 100 mg twice daily (weight loss) Oxcarbazepine 300 -600 mg BID (?weight loss) PREVIOUS EPILEPSY EVALUATIONS: vEEG (01/2019, [facility]): 1. 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 Christie Hylton MD, MEd Staff Physician [facility] [place] [address] [place] [address] Office documented in this encounterChildren'S Hospital Of Columbus07-23-2024 History of Present illness Narrative* Marisa Monaco - 10/17/2023 7:36 AM EDT Incidental Lung Nodule Enrollment Outreach attempt: 2nd Attempt Outreach status: Complete Enrolled in Lung Nodule program: Referred Lung Nodule outreach: Needs outreach Lung Nodule Program Location: [place] Two letter attempts documented in this encounterChildren'S Hospital Of Columbus07-17-2024 Instructions* Patient Instructions* Cisco Gurrola MD - 10/11/2023 2:02 PM EDT # Please help to see if she can get a CT abdomen and pelvis repeated locally in [place] that is affiliated with [facility] # Please also get labs closer to home. # Ok to stop Augmentin and observe. # Will have general surgery reach out to you for the drain management. 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 and lives alone, no children. Pets: 1dog. No smoking and quit drinking 3 years. IMMUNIZATION HISTORY Immunization History Administered Date(s) Administered COVID-19 original vaccine, age 12+ yr, monovalent (Jet-[employer] - PURPLE TOP) 06/06/2020 07/01/2020 03/01/2021 COVID-19 vaccine, age 12+ yr, bivalent (Aureliant) 04/26/2022 MEDICATIONS: Medications reviewed. Current Outpatient Medications [...] (elevated), fecal dillan-protectin 371, blood cx 09/14 2 negative, CT a/p 09/07: Extensive pericecal inflammatory [...] Cisco Gurrola MD Infectious Disease Office PAGER: [phone] documented in this encounterChildren[facility] Instructions* Patient Instructions* Kailyn Coleman MD - 10/11/2023 12:22 PM EDT - [facility] - Schedule follow-up with general surgery regarding drain - Schedule follow-up with colorectal surgery - Possible colonoscopy with me based on the findings from your CT scan - Bloodwork - IBD nutrition if affordable documented in this encounterChildren'S Hospital [facility]07-17-2024 History of Present illness Narrative* Kailyn Coleman MD - 10/11/2023 11:00 AM EDT NAME: Lakesha Koch [facility] NO: [id number] REASON FOR VISIT Lakesha Koch is a [...] OSH was readmittedfor Failure to thrive at [facility]. She was found to have ongoing 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, myah-cecal abscess, weight loss, and ileal psoas abscess, and myah-uterine mass and and hypokalemia and was admitted to [facility] at that time from 09/08/2023-09/27/2023. Since discharge [...] mouth three times a day with meals. 01288 mL 0 Food Supplement, Lactose-Free (ENSURE HIGH PROTEIN) liqd Take 237 mL by mouth two times a day. 2 times daily between meals 63219 mL 0 Food Supplement, Lactose-Free (ENSURE CLEAR) [...] Follow up in 1 month Slade Carlisle APRN.PROCESS DESCRIPTION WRITER GI STAFF I reviewed the history and [...] to have FTT and so represented to [facility], where she was followed by GI, [...] month Kailyn Coleman MD documented in this encounterChildren'S Hospital [facility]07-16-2024 History of Present illness Narrative* Amish Castornea APRN.CNP - 10/10/2023 11:06 AM EDT Incidental Lung Nodule Enrollment Outreach attempt: 1st Attempt Outreach status: Left message Enrolled in Lung Nodule program: Referred Lung Nodule outreach: Needs outreach Lung Nodule Program Location: [place] Called patient regarding CT Chest dated 09.16.2023 that incidentally showed a lung nodules. No answer. Left message Amish Castorena APRN.CNP documented in this encounterChildren'S [facility]07-15-2024 History of Present illness Narrative* Marisa Monaco - 10/09/2023 12:58 PM EDT Patient Discharged from Hospital Needs outreach documented in this encounterChildren'S Hospital [facility]07-09-2024 Nurse Note* Fátima Roche RN - 10/03/2023 [...] Unknown Last Colonoscopy: Unknown Fátima Roche RN [facility] Nurse Note* Fátima Roche RN - 10/03/2023 [...] Unknown Fátima Roche RN documented in this encounterChildren'S Hospital [facility]07-09-2024 History of Present illness Narrative* Jayla Fung [...] records - she had been admitted at [facility] for abdominal pain, and a phlegmonous process noted in the area of the appendix and ROCIO drain placed by CT guidance in this location. She was then admitted to [facility] for failure to thrive (poor po intake) on 09/08/2023 and discharged 09/27/2023. The ROCIO that she presently has in, I believe, is the one placed at [facility] (probably 09/01/2023) - no records available and patient does not know. She presently states that she is pain-free. Her last CT scan, that I can obtain from records is 09/16/2023. She denies any surgical procedures and I do not see any in the patient's hospitalizations - either [facility] or main [facility]. She states that [...] states that she has an appointment at [facility] next week and will wait for determination [...] Straightforward Jayla Fung MD documented in this encounterChildren'S Hospital [facility]07-08-2024 History of Present illness Narrative* Marisa Monaco - 10/02/2023 11:40 AM EDT Patient Discharged from Hospital Needs outreach documented in this encounterChildren'S Hospital [facility]07-03-2024 Telephone encounter Note * Telephone Encounter - Angela Trujillo RN - 09/27/2023 3:25 PM EDT Patient has been identified by name and date of : Yes [facility] calling to request ICD Code for: ENSURE [...] PM Snack Please return call to Dayna [phone] Ext [phone] [facility]07-03-2024 Miscellaneous Notes* Telephone Encounter - Angela Trujillo RN - 09/27/2023 3:25 PM EDT Patient has been identified by name and date of : Yes [facility] to request ICD Code for: ENSURE [...] PM Snack Please return call to Dayna [phone] Ext [phone] documented in this encounterChildren'S Hospital [facility]06-26-2024 History of Present illness Narrative* Merlyn Tracy APRN.CNP - 09/20/2023 9:17 AM EDT Incidental Lung Nodule Enrollment Enrolled in Lung Nodule program: Referred Lung Nodule outreach: No outreach - Inpatient Lung Nodule Program Location: [place] documented in this encounterChildren'S Hospital Of [facility]06-14-2024 Telephone encounter Note * Telephone Encounter - Sivan Marcano RN - 09/08/2023 1:04 PM EDT Patient @ [facility] ER Patient/sister aware Epilepsy can be consulted as needed Sivan Marcano RN [facility] Work Phone: [phone]) [phone] Miscellaneous Notes* Telephone Encounter - Sivan Marcano RN - 09/08/2023 1:04 PM EDT Patient @ [facility] ER Patient/sister aware Epilepsy can be [...] sister Bianka Patient was recently hospitalized @ [facility] for 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/abscess/other health conditions - she is [...] ER NOV: 02/05/2024 w/Dr. Hylton Forwarded to K121 for review Sivan Marcano RN * Telephone Encounter - Argenis Beebe - 09/08/2023 8:42 AM EDT Medication Concern Person Calling bianka-sister(not on contact) patient is with bianka Name of medication depakote Concern with medication patient having tremors, swollen feet, not eating , lethargic Patient of Dr. hylton documented in this encounterChildren'S Hospital [facility]06-14-2024 Telephone encounter Note * Telephone Encounter - Amish Cole APRN.CNP - 09/08/2023 12:13 PM EDT Agree with recommendation she needs full lab work and possible imaging/ testing. Will await updates Amish Cole APRN.CNP [facility]-14-2024 Telephone encounter Note* Telephone Encounter - Sivan Marcano RN - 09/08/2023 9:07 AM EDT Spoke w/patient - she gives verbal permission to speak with sister Bianka Patient was recently hospitalized @ [facility] for 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/abscess/other health conditions - she is [...] ER NOV: 02/05/2024 w/Dr. Hylton Forwarded to [facility] [employer] [place] for review Sivan Marcano RN [facility]-14-[facility]24 Telephone encounter Note* Telephone Encounter - Argenis Beebe - 09/08/2023 8:42 AM EDT Medication Concern Person Calling bianka-sister(not on contact) patient is with bianka Name of medication depakote Concern with medication patient having tremors, swollen feet, not eating , lethargic Patient of Dr. hylton [facility]-10-2024 Telephone encounter Note* Telephone Encounter - Sivan Marcano RN - 08/04/2023 3:38 PM EDT Noted - patient aware Sivan Marcano RN [facility] Work Phone: 1(532) 494-673705-10-2024 Miscellaneous Notes* Telephone Encounter - Sivan Marcano [...] tablets per day. Authorizing Provider: AMISH COLE APRN.PROCESS DESCRIPTION WRITER * Telephone Encounter - Sivan Marcano RN - 08/04/2023 1:48 PM EDT Patient requesting prescription for VPA ER 250 mg tablets - easier to swallow Increased goal dose: 1,000 mg BID Patient also requests prescription for KLP 0.5 mg ODT PRN use Preferred pharmacy: [facility] Forwarded to [address] for review Sivan Marcano RN * Telephone Encounter - Karime Ashraf - 08/04/2023 1:34 PM EDT Medication Concern Person Calling Lakesha Koch Name of medication Depakote 500mg Concern with medication pills are too big; would like to go back to 250mg Patient of Dr. Hylton documented in this encounterChildren'S Hospital [facility]05-10-2024 Telephone encounter Note * Telephone Encounter - [...] tablets per day. Authorizing Provider: AMISH COLE APRN.PROCESS DESCRIPTION WRITER [facility]05-10-2024 Telephone encounter Note* Telephone Encounter - Sivan Marcano RN - 08/04/2023 1:48 PM EDT Patient requesting prescription for VPA ER 250 mg tablets - easier to swallow Increased goal dose: 1,000 mg BID Patient also requests prescription for KLP 0.5 mg ODT PRN use Preferred pharmacy: [facility] Forwarded to [address] for review Sivan Marcano RN [facility]05-10-2024 Telephone encounter Note* Telephone Encounter - Karime Ashraf - 08/04/2023 1:34 PM EDT Medication Concern Person Calling Lakesha Koch Name of medication Depakote 500mg Concern with medication pills are too big; would like to go back to 250mg Patient of Dr. Hylton [facility] Telephone encounter Note* Telephone Encounter - Sivan Marcano RN - 08/02/2023 8:20 AM EDT Per patient request - lab orders faxed to [facility] lab Received confirmation of transmission Sivan Marcano RN T [facility] Work Phone: 1(504) 174-269405-08-2024 Miscellaneous Notes* Telephone Encounter - Sivan Marcano RN - 08/02/2023 8:20 AM EDT Per patient request - lab orders faxed to [facility] lab Received confirmation of transmission Sivan Marcano RN documented in this encounterChildren'S Hospital [facility]05-07-2024 History of Present illness Narrative* Ashly Lange APRN.LUZMA - 08/01/2023 1:00 PM EDT [facility] Patient Name: Lakesha Koch Date of : 1960 FOLLOW-UP EPILEPSY CLINIC NOTE - VIRTUAL VISIT August 01, 2023 CHIEF COMPLAINT: epilepsy Last seen in Epilepsy Department: by Amish Cole CNP CLINICAL SUMMARY: Ms. Koch is a 63-year-old right-handed woman [facility] for further management [...] insomia Switched to Topamax over the summer. [place]rencro like Topamax helped even more with seizure [...] No - Significant head trauma No - APPRENTICE STYLIST Infection No - Other pre-existing APPRENTICE STYLIST disease (example - tumor, vascular disease) No [...] mg BID PREVIOUS EPILEPSY EVALUATIONS: vEEG (01/2019, [facility]): 1. 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 Ashly Lange APRN.CNP August 01, 2023 documented in this encounterChildren'S Hospital [facility]05-06-2024 Telephone encounter Note * Telephone Encounter - Sivan Marcano RN - 07/31/2023 3:01 PM EDT Patient did not appear for VV Message to S51 schedulers to assist Forwarded to ANTONIO [employer] for review Sivan Marcano RN [facility] Work Phone: [phone]) [phone] Miscellaneous Notes* Telephone Encounter - Sivan Marcano RN - 07/31/2023 3:01 PM EDT Patient did not appear for VV Message to S51 schedulers to assist Forwarded to ANTONIO [employer] for review Sivan Marcano RN * Telephone Encounter - Sivan Marcano RN - 07/31/2023 12:03 PM EDT Patient reports seizure concern: Last Visit: 07/21/2022 Next Visit: None - transferred to [facility] Date and Time of seizure: 07/28 - [...] Relationship to patient: Self Contact phone number: [phone] Date of seizure: July 31, 2023 Duration: 2 or 3 minutes Back to Baseline (Yes/No): Yes Emergency treatment needed (Yes/No): No Patient of Dr. Hylton documented in this encounterChildren'S Hospital [facility]05-06-2024 Telephone encounter Note * Telephone Encounter - [...] 07/30 w/ANTONIO to discuss Sivan Marcano RN [facility]05-06-2024 Telephone encounter Note* Telephone Encounter - Lynne Hernández - 07/31/2023 11:57 AM EDT Seizure activity: Name of Caller : Lakesha Koch Relationship to patient: Self Contact phone number: [phone] Date of seizure: July 31, 2023 Duration: 2 or 3 minutes Back to Baseline (Yes/No): Yes Emergency treatment needed (Yes/No): No Patient of Dr. Hylton [facility]-12-2024 Miscellaneous Notes* Telephone Encounter - Cj Yi [...] by: patient Please E-Scribe Caller Contact Number: [phone] [facility]: [facility]acy Number: [id number] Generic/ brand: generic 30 or 90 day supply requested: 90 Last appointment: 07/21/22 Next Appointment: Patient was transferred to schedulers. Patient of Dr. Hylton documented in this encounterChildren'S Hospital [facility]10-25-2023 Miscellaneous Notes* Telephone Encounter - Lynne Hernández - 01/18/2023 1:28 PM EDT Lab orders faxed to [facility] Lab attn: Magi via [phone]. Patient was waiting. documented in this encounterChildren'S Hospital [facility]08-04-2023 History of Present illness Narrative* Sheila Walters DMD - 10/28/2022 12:00 AM EDT ----- Friday, October 28, 2022 at 3:59:08 PM ----- ----- Provider: [id number] Mathew Walters DMD -- Clinic: [place] ----- Patient presented today to discuss snf options for replacing her decayed bridge 8x10. Patient has lost her Medicaid insurance since her last appointment and will not be getting new dental insurance. Since patient is paying out of pocket for all dental treatment, she would like to pursue treatment at an office closer to home since she is from [place], [place]. I did advise patient that she needs to get a flipper to replace those teeth before the bridge breaks out of her mouth, patient agrees. If patient returns the next appointment would be impression for a flipper. documented in this [id number] History of Present illness Narrative* Amish Cole APRN.PROCESS DESCRIPTION WRITER - 07/21/2022 1:00 PM EDT [facility] VIRTUAL VISIT I have communicated my name and active licensure. The patient's identity and physical location wereverified at the time of this visit. Either the patient or their legal pharmaceutical representative has been informed of the risks [...] flash, face becomes flushed, gets shaky, no COLOMBIAN, lasting 1-3 minutes. 2022 Seizure LOG Mar. - 0 Apr. - 28 May - 28 June [...] NEUROLOGICAL EXAM: deferred PREVIOUS EVALUATIONS: vEEG (01/2019, [facility]): 1. Intermittent Slow, Regional Left [...] APRN.CNP July 21, 2022 documented in this encounterChildren'S Hospital [facility]04-26-2023 Miscellaneous Notes* Telephone Encounter - Sivan Marcano [...] Relationship to patient: Self Contact phone number: [phone] Date of seizure: 07/20/22 Duration: 2 minutes Back to Baseline (Yes/No): yes Emergency treatment needed (Yes/No): no Patient of Dr. hylton documented in this encounterChildren'S Hospital [facility]07-28-2022 Miscellaneous Notes* Telephone Encounter - Sivan Marcano RN - 10/21/2021 1:34 PM EDT Called patient, no answer received. Left message for return call. Patient not access [employer]. This encounter closed - no response from [...] Unable to leave message Patient does access [employer] Sivan Marcano RN * Telephone Encounter - [...] VPA ER 500 mg BID Forwarded to [facility] for review/recommendation Sivan Marcano RN * Telephone Encounter - ESTEFANY James - 10/14/2021 1:23 PM EDT Images from the original note were not included. Uploaded to [facility] * Telephone Encounter - Sivan Marcano RN - 10/11/2021 4:40 PM EDT ASM level pending Sivan Marcano RN * Telephone Encounter - ESTEFANY James - 10/11/2021 4:37 PM EDT Images from the original note were not included. OUTSIDE LAB REPORT FACILITY NAME [facility] PHONE/FAX [phone] COLLECTION DATE AND TIME: 10/11/21 Uploaded to [facility] documented in this encounterChildren'S Hospital Of [facility]06-24-2022 Miscellaneous Notes* Telephone Encounter - Sivan Marcano RN - 09/17/2021 11:24 AM EDT Spoke with patient and provided recommendation; she verbalizes understanding. Lab work completed locally. Lab requisition faxed to [facility] Received confirmation of transmission Sivan Marcano RN * Telephone Encounter - Amish Cole APRN.CNP - 09/17/2021 11:08 AM EDT Lets get a level first and then determine if room to adjust VPA verus adding a 2nd AEd. Pt has low Body weight VPa level placed Amish Cole APRN.CNP * Telephone Encounter - [...] . Lakesha Koch1960, Yes Contact phone number: [phone] (home) Date of seizure: 09/11/21 Duration: 2-3 mins Back to Baseline (Yes/No): yes Emergency treatment needed (Yes/No): no Patient of Dr. Hylton Thank you for calling the [facility]. You will receive a return call within 24 hours. documented in this encounterChildren'S Hospital [facility]06-23-2022 Miscellaneous Notes* Telephone Encounter - iSvan Marcano RN - 09/16/2021 12:12 PM EDT CMP collected only - no ASM level Results addressed PCP Sivan Marcano RN * Telephone Encounter - Karime Ashraf - 09/16/2021 11:54 AM EDT Images from the original note were not included. OUTSIDE LAB REPORT FACILITY NAME [facility] PHONE/FAX [phone] COLLECTION DATE AND TIME: 07/02/2021 1313 Uploaded to [employer] documented in this encounterChildren'S Hospital [facility]04-11-2022 History of Present illness Narrative* Christie Hylton MD - 07/05/2021 12:21 PM EDT [facility] Patient Name: Lakesha Koch Date of : 1960 FOLLOW-UP EPILEPSY CLINIC NOTE - VIRTUAL VISIT July 05, 2021 at 12:22 PM CHIEF COMPLAINT: epilepsy Last seen in Epilepsy Department: 11/26/2019 by myself (Christie Hylton MD); last by Kerri Quinn 12/2020 CLINICAL SUMMARY: Ms. Koch is a 61-year-old right-handed woman followed at [facility] for further management [...] injury; plans to return to work at [employer] in few weeks Continues to drive REVIEW [...] insomia Switched to Topamax over the summer. [place] like Topamax helped even more with seizure [...] No - Significant head trauma No - APPRENTICE STYLIST Infection No - Other pre-existing APPRENTICE STYLIST disease (example - tumor, vascular disease) No [...] mg BID PREVIOUS EPILEPSY EVALUATIONS: vEEG (01/2019, [facility]): 1. 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[place], [place] No children Ex : history of [...] which included: preparing to see the patient [id number] patient care completing clinical documentation obtaining and/or reviewing separately obtained history counseling and educating the patient/family/caregiver ordering medications, tests, or procedures Chrisite Hylton MD, MEd Staff Physician [facility] [address] Office cc: Primary Care Physician: Mary Moss, PROCESS DESCRIPTION WRITER [address] [id number] Referring: Christie Hylton [address] [place], [place] [id number] Patient: Ms. Lakesha Koch [address] [address] documented in this encounterChildren'S Hospital [facility]11-05-2019 History of Past illness Narrative* Problem Noted [...] of this encounter (statuses as of 07/07/2021) [facility] History of Past illness Narrative* Problem Noted [...] of this encounter (statuses as of 09/16/2021) [facility] History of Past illness Narrative* Problem Noted [...] of this encounter (statuses as of 09/17/2021) [facility] History of Past illness Narrative* Problem Noted [...] of this encounter (statuses as of 10/21/2021) [facility] History of Past illness Narrative* Problem Noted [...] of this encounter (statuses as of 07/21/2022) [facility] History of Past illness Narrative* Problem Noted [...] of this encounter (statuses as of 07/27/2022) [facility] History of Past illness Narrative* Problem Noted [...] of this encounter (statuses as of 01/18/2023) [facility] History of Past illness Narrative* Problem Noted [...] of this encounter (statuses as of 05/08/2023) [facility] Columbus[facility] summary Author Ankit Marsh [facility] Note Date/Time October 23, 2024 11:3 5am [facility] Medical Records Department [address] [place] [address] Emergency Department Summary 10/23/24 MR#: [id number] Acct: [id number] Name: LAKESHA KOCH Rep #:[id number] : 1960 64 From: Ankit Marsh MD PCP: Aubrey Lopez TRAY FILLER-C Status:REG ER Location: ED HPI History of [...] that shecannot tolerate even sips of water. [facility] Medical History Seizure disorder Hypotension Marijuana abuse [...] 74.0 H Lymph % (Auto) 17.9 L Perry % (Auto) 4.8 Eos % (Auto) 2.2 [...] Care Provider: Aubrey Lopez Referrals: Aubrey Lopez, TRAY FILLER-C [Primary Care Provider] - As soon as possible Activity Restrictions/Additional Instructions: Continue your Zofran at home. Clear liquid diet and advance as tolerated. Drink plenty of oral fluids. Return with new or worsening symptoms. Print Language: Puerto Rican Disposition Disposition: Home, Self Care What to do if you have Problems For any increased pain, shortness of breath, bleeding, nausea or vomiting, chestpain, or any unexpected problems, contact your Primary Care Provider. Call [facility] ([phone]) or report to the closest Emergency Room. Call 911 if necessary. 10/23/24 2972 <Electronically signed by Ankit Marsh MD> Cosigner Signature (if applicable): CC: Aubrey CURIEL TRAY FILLER-C Jessica ~ Signed [facility] Work Phone: Discharge summary Author Saroj Puga [facility] Note Date/Time November 08, 2024 11 :33am [facility] Medical Records Department [address] [place] [address] Instructions for Home/Discharge Instructions 11/08/24 1131 MR#: [id number] Acct: [id number] Name: LAKESHA KOCH Rep #:[id number] : 1960 64 From: Saroj dao DO PCP: Aubrey Lopez TRAY FILLER-C Status:ADM IN Discharge Instructions DC O2, CPAP, [...] 0RF Referrals / Follow Up: Aubrey Lopez, TRAY FILLER-C [Primary Care Provider] - Disposition Disposition (needs filled in before D/C Order can be placed): Home, Self Care 11/08/24 1133<Electronically signed by Saroj Puga DO>Saroj Puga DO CC: Dr. Annette Mendez MD; Aubrey CURIEL TRAY FILLER-C Beam ~ Signed [facility] Work Phone: Discharge summary Author Johnny Colunga [facility] Note Date/Time December 17, 2024 11:58am [facility] Medical Records Department [address] [place] [address] Emergency Department Summary 12/17/24 MR#: [id number] Acct: [id number] Name: LAKESHA KOCH Rep #:[id number] : 1960 64 From: Johnny martínez DO PCP: Aubrey Lopez TRAY FILLER-C Status:REG ER Location: ED HPI History of [...] intact Psych: Cooperative, appropriate mood and affect [facility] Medical History Restless legs Cancer Hypotension Marijuana [...] 82.4 H Lymph % (Auto) 7.5 L Perry % (Auto) 9.4 Eos % (Auto) 0.0 [...] Clarity Clear Urine pH 6.0 Ur Specific [place] 1.010 Urine Protein 30 H Urine Glucose [...] correlation recommended if clinically indicated. Reading Location: [place] [address] Discharge Plan Triage Chief Complaint: Abd Pain [...] Care Provider: Aubrey Lopez Referrals: Aubrey Lopez, TRAY FILLER-C [Primary Care Provider, Family Practice] Print Language: Puerto Rican What to do if you have Problems For any increased pain, shortness of breath, bleeding, nausea or vomiting, chestpain, or any unexpected problems, contact your Primary Care Provider. Call [facility] ([phone]) or report to the closest Emergency Room. Call 911 if necessary. 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) 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 partial seizures, without mention of intractable epilepsy Encounter for monitoring long-term anticonvulsant therapy Encounter for therapeutic drug monitoring [facility] assessment information availableWSal[facility] Work Phone: Evaluation note* Diagnosis Focal epilepsy [...] specified viral diseases [facility] Inflammatory bowel disease- Primary Other and unspecified noninfectious gastroenteritis and colitis Perforated appendix Acute 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 with generalized peritonitis Severe protein-calorie malnutrition (HCC) Other severe protein-calorie malnutrition [facility] [...] Solitary pulmonary nodule [facility] Diagnosis Focal epilepsy (HCC)- Primary Localization-related [...] with generalized peritonitis documented in this encounter [facility] note* Diagnosis Focal epilepsy (HCC)- Primary [...] with generalized peritonitis documented in this encounter [facility] note* Diagnosis Focal epilepsy (HCC)- Primary [...] with generalized peritonitis documented in this encounter [facility] note* Diagnosis Focal epilepsy (HCC)- Primary [...] since May 2023. [facility] Diagnosis [facility]ocal epilepsy (HCC)- Primary Localization-related [...] with generalized peritonitis [facility] Diagnosis Focal epilepsy (HCC)- Primary Localization-related [...] Nausea with vomiting [facility] Diagnosis Focal epilepsy (HCC)- Primary Localization-related [...] failure to thrive [facility] Diagnosis Focal epilepsy (HCC)- Primary Localization-related [...] lump, unspecified site [facility] Diagnosis Focal epilepsy (HCC)- Primary Localization-related [...] neoplasm of cecum [facility] Diagnosis Focal epilepsy (HCC)- Primary Localization-related [...] of ascending colon [facility] Diagnosis Focal epilepsy (HCC)- Primary Localization-related [...] neoplasm of cecum [facility] Diagnosis Focal epilepsy (HCC)- Primary Localization-related [...] of ascending colon [facility] Diagnosis Focal epilepsy (HCC)- Primary Localization-related [...] Nausea with vomiting documented in this encounter [facility] note* Diagnosis Focal epilepsy (HCC)- Primary [...] neoplasm of cecum documented in this encounter [facility] note* Diagnosis Focal epilepsy (HCC)- Primary [...] lump, unspecified site [facility] Diagnosis Focal epilepsy (HCC)- Primary Localization-related [...] right lower quadrant [facility] Diagnosis Focal epilepsy (HCC)- Primary Localization-related [...] right lower quadrant [facility] [...] of lung field [facility] Diagnosis Focal epilepsy (HCC)- Primary Localization-related [...] neoplasm of cecum [facility] Diagnosis Focal epilepsy (HCC)- Primary Localization-related [...] and colitis Dehydration [facility] Diagnosis Focal epilepsy (HCC)- Primary Localization-related [...] neoplasm of cecum [facility] Diagnosis Focal epilepsy (HCC)- Primary Localization-related [...] severe protein-calorie malnutrition [facility] Diagnosis Focal epilepsy (HCC)- Primary Localization-related [...] vomiting Hypokalemia Hypopotassemia [facility] Diagnosis Focal epilepsy (HCC)- Primary Localization-related [...] neoplasm of cecum [facility] Diagnosis Focal epilepsy (HCC)- Primary Localization-related [...] of lung field [facility] Diagnosis Focal epilepsy (HCC)- Primary Localization-related [...] of ascending colon [facility] Diagnosis Focal epilepsy (HCC)- Primary Localization-related [...] neoplasm of cecum [facility] Diagnosis Focal epilepsy (HCC)- Primary Localization-related [...] neoplasm of cecum [facility] Diagnosis Focal epilepsy (HCC)- Primary Localization-related [...] neoplasm of cecum [facility] Diagnosis Focal epilepsy (HCC)- Primary Localization-related [...] severe protein-calorie malnutrition [facility] Diagnosis Focal epilepsy (HCC)- Primary Localization-related [...] neoplasm of cecum documented [facility] Diagnosis Focal epilepsy (HCC)- Primary Localization-related [...] right lower quadrant [facility] Diagnosis Focal epilepsy (HCC)- Primary Localization-related [...] of ascending colon documented in this encounter [facility] note* Diagnosis Focal epilepsy (HCC)- Primary [...] right lower quadrant [facility] Diagnosis Focal epilepsy (HCC)- Primary [...] mass and lump [facility] Diagnosis Focal epilepsy (HCC)- Primary Localization-related [...] mass and lump [facility] Diagnosis Focal epilepsy (HCC)- Primary Localization-related [...] mass and lump [facility] Diagnosis Focal epilepsy (HCC)- Primary Localization-related [...] neoplasm of cecum documented [facility] Diagnosis Focal epilepsy (HCC)- Primary Localization-related [...] neoplasm of cecum documented in this encounter [facility] note* Diagnosis Focal epilepsy (HCC)- Primary [...] of ascending colon documented in this encounter [facility] note* Diagnosis Focal epilepsy (HCC)- Primary [...] of ascending colon [facility]* Diagnosis Focal epilepsy (HCC)- Primary Localization-related [...] of ascending colon documented in this encounter [facility] note* Diagnosis Focal epilepsy (HCC)- Primary [...] of ascending colon [facility] Diagnosis Focal epilepsy (HCC)- Primary Localization-related [...] neoplasm of cecum documented in this encounter [facility] note* Diagnosis Focal epilepsy (HCC)- Primary [...] or unspecified remission [facility] Diagnosis Focal epilepsy (HCC)- Primary Localization-related [...] neoplasm of cecum [facility] Diagnosis Focal epilepsy (HCC)- Primary Localization-related [...] neoplasm of cecum [facility] Diagnosis Focal epilepsy (HCC)- Primary Localization-related [...] neoplasm of cecum documented in this encounter [facility] note* Diagnosis Focal epilepsy (HCC)- Primary [...] neoplasm of cecum [facility] Diagnosis Focal epilepsy (HCC)- Primary Localization-related [...] severe protein-calorie malnutrition [facility] Diagnosis Focal epilepsy (HCC)- Primary Localization-related [...] right lower quadrant [facility] Diagnosis Focal epilepsy (HCC)- Primary Localization-related [...] neoplasm of cecum [facility] Diagnosis Focal epilepsy (HCC)- Primary Localization-related [...] neoplasm of cecum documented in this encounter [facility] note* Diagnosis Focal epilepsy (HCC)- Primary [...] neoplasm of cecum documented in this encounter [facility] note* Diagnosis Focal epilepsy (HCC)- Primary [...] neoplasm of cecum [facility] Diagnosis Focal epilepsy (HCC)- Primary Localization-related [...] right lower quadrant [facility] Diagnosis Focal epilepsy (HCC)- Primary Localization-related [...] right lower quadrant [facility]* Diagnosis Focal epilepsy (HCC)- Primary Localization-related [...] neoplasm of cecum [facility] Diagnosis Focal epilepsy (HCC)- Primary Localization-related [...] neoplasm of cecum documented in this encounter [facility] note* Diagnosis Focal epilepsy (HCC)- Primary [...] neoplasm of liver [facility] Diagnosis Focal epilepsy (HCC)- Primary Localization-related [...] neoplasm of cecum [facility] Diagnosis Focal epilepsy (HCC)- Primary Localization-related [...] neoplasm of liver [facility] Diagnosis Focal epilepsy (HCC)- Primary Localization-related [...] neoplasm of cecum documented [facility]* Diagnosis Focal epilepsy (HCC)- Primary Localization-related [...] neoplasm of cecum [facility] Diagnosis Focal epilepsy (HCC)- Primary Localization-related [...] neoplasm of cecum [facility] Diagnosis Focal epilepsy (HCC)- Primary Localization-related [...] of ascending colon documented in this encounter [facility] note* Diagnosis Focal epilepsy (HCC)- Primary [...] neoplasm of cecum documented in this encounter [facility] note* Diagnosis Focal epilepsy (HCC)- Primary [...] of ascending colon [facility] Diagnosis Focal epilepsy (HCC)- Primary Localization-related [...] of ascending colon [facility] Diagnosis Focal epilepsy (HCC)- Primary Localization-related [...] of ascending colon [facility] Diagnosis Focal epilepsy (HCC)- Primary Localization-related [...] neoplasm of cecum documented [facility] Author Annette Mendez [facility] Note Date/Time November 07, 2024 3: 29pm [facility] Medical Records Department [address] [place] [address] H&P Exam - Hospitalist 11/07/24 1514 MR#: [id number] Acct: [id number] Name: LAKESHA KOCH Rep #:[id number] : 1960 64 From: Annette Mendez MD PCP: Aubrey Lopez TRAY FILLER-C Status:REG ER Location: ED HPI - General General Date of Admission: 11/07/24 Date of Service: 11/07/24 Chief Complaint: Abdominal pain HPI Narrative LAKESHA KOCH, is a 64-year-old female history of recurrent colon cancer, GERD, recent port placement and first dose of chemotherapy, anxiety who presented [facility] ED 11/07/2024 for abdominal pain. She has a history of [address] [facility] and had port placed and just started [...] sinceovernight, initially went to the out Patient [facility] and they sent her to the ED. Continues to have the pain in the lower abdomen, denies right upper quadrant or upper abdominal pain, denies any fevers at home, no cough, chest pain, shortness of breath. Does report she feels she has had a little bit of a hard time emptying her bladder. [facility] Medical History Seizure disorder Hypotension Marijuana abuse [...] erythromycin base Allergy TONGUE Verified 11/07/24 11:22 ABENAELS Family History Sister Melanoma Father Prostate [...] 90.3 H, Lymph % (Auto) 5.6 L, Perry % (Auto) 3.3, Eos % (Auto) 0.0, [...] is seen in the pelvis. [facility] & Plan Assessment/Plan (1) Abdominal pain: [...] # Recurrent colon cancer -Following with the [facility] -Has Mediport and had her first chemotherapy yesterday -Will continue to follow with them on discharge #Hypokalemia -Replace -Repeat in the AM #Depression/anxiety -Continue home medications #DVT ppx: SCDs Annette Mendez MD Charges/Coding Visit Charges Inpatient E&M: 41495 Init Hosp L2 11/07/24 1520 <Electronically signed by Annette Mendez MD> Cosigner Signature (if applicable): CC: Dr. Annette Mendez MD; Aubrey [facility] TRAY FILLER-C Beam~ Signed [facility] Work Phone: Hospital Discharge instructions Additional Instructions Keep your appointment to have CT scan of your abdomen pelvis performed today. Return for persistent vomiting, worsening pain, fever, or condition worsening)[facility] Work Phone: Hospital Discharge instructionsAdditional Instructions Continue your Zofran at home. Clear liquid diet and advance as tolerated. Drink plenty of oral fluids. Return with new or worsening symptoms.[facility] Work Phone: Hospital Discharge instructionsAdditional Instructions Follow-up with oncology, palliative care, pain management. Continue to take your home Dilaudid. Return back to ED if symptoms change or worsen.[facility] Work Phone: Patient's home Plan of care note* Visit Details Visit Type -SN SOC Discipline -Fpc Problems Problem Description Start Date Status Goals [...] activity as tolerated SPO2 Description: Notify Dr. Saenz if pulse ox is <92% at rest. [...] location: abdomen Wound type (etiology): Incision Order: HYDRO TECHNICIAN, skin glue in place Frequency: daily Wound [...] prevent skin irritation. [facility]* Visit Details [...] as needed Completed SPO2 Description: Notify Dr. Saenz if pulse ox is <92% at rest. [...] home exercise program. [facility]* Visit Details [...] sheet as appropriate. SPO2 Description: Notify Dr. Saenz if pulse ox is <92% at rest. [...] and home safety. [facility]* Visit Details [...] community ambulation, in order to return to pl, to be achieved by 02/10/24. . PT Impaired gait No Demonstrate understanding of education Description: Patient and/or caregiver will understand educational instruction to be achieved by 02/10/24. . PT Learning Assessment No Interventions Intervention Associated Problem/Goal Status Variance Visit Notes SPO2 Description: Notify Dr. Saenz if pulse ox is <92% at rest. [...] home exercise program. [facility]* Visit Details Visit Type -SN ROUTINE Discipline -Fpc Problems Problem Description Start Date Status Goals [...] to medication schedule. SPO2 Description: Notify Dr. Saenz if pulse ox is <92% at rest. [...] prevent skin irritation. [facility]* Visit Details Visit Type -CLINICAL SYSTEMS EDUCATOR ROUTINE Discipline -Physical Therapy Problems Problem Description [...] community ambulation, in order to return to [facility], to be achieved by 02/10/24. . PT [...] activity as tolerated SPO2 Description: Notify Dr. Saenz if pulse ox is <92% at rest. [...] home exercise program. [facility]* Visit Details Visit Type -SN ROUTINE Discipline -Fpc Problems Problem Description Start Date Status Goals [...] to medication schedule. SPO2 Description: Notify Dr. Saenz if pulse ox is <92% at rest. [...] surgical care precautions. documented in this encounter [facility] Plan of care note* Visit Details Visit Type -SN AGENCY DC W V ISIT Discipline -Fpc Problems Problem Description Start Date Status Goals [...] to medication schedule. SPO2 Description: Notify Dr. Saenz if pulse ox is <92% at rest. [...] surgical care precautions. [facility])No reason for referral information availableWSalem Regional [facility] Center Work Phone: Reason for visit Narrative* MRI/CT (Routine) - Closed Specialty Diagnoses / Procedures Referred By Contac t Referred To Contact CT IMAGING Diagnoses Right lower quadrant abdominal pain Procedures CT ABD/PEL W IVCON CT ABD & PELVIS W/CONTRAST Tessa Spring MD [address] [place] [address] Phone: tel: fax: [facility] IMAG[facility] [place] [address] Referral ID Status Reason Start Date Expiration Date V isits Requested Visits Authorized [id number] Closed Auto-Generate d Referral 07/02/2024 08/01/2025 1 1 [facility] Summary Purpose Family History No Family History Records Found Relationship Condition Age at Onset Recorded Date/T juli sister Malignant melanoma Unknown father Malignant neoplasm of prostate Unknown Advance Directives No Advanced Directives Records FoundDocuments on File Type Date Recorded Patient Ad Operations Coordinator Expl anation Advance Directive(s) 01/28/2019 9:06 AM Advance Directive(s) 01/08/2019 6:27 PM Advance Directive(s) 11/29/2018 2:09 PM Advance Directive Response Recorded Date/ Time Living Will No July 24, 2020 12:23am Power of Group Product Manager No July 24 12:23am Advance Directive Response Recorded Date/ Time Living Will No August 16, 2022 1 0:01pm Power of Group Product Manager No August 16, 2022 10:01pm Advance Directive Response Recorded Date/ Time Living Will No August 16, 2022 9 :01pm Power of Group Product Manager No August 16, 2022 9:01pm Documents on File Type Date Recorded Patient Ad Operations Coordinator Expl anation Advance Directive(s) 09/13/2023 12:11 PM Advance Directive(s) 09/12/2023 3:32 PM Date Activated Date Inactivated Comments 09/08/2023 10:55 PM Question Answer Comments Full Code Order Discussed With: Patient Date Activated Date Inactivated Comments 09/08/2023 10:55 PM 09/27/2023 5:15 PM Documents on File Type Date Recorded Patient Ad Operations Coordinator Expl anation Advance Directive(s) 09/13/2023 12:11 PM [...] Do you have a Healthcare Power of Group Product Manager? No April 08, 2024 4:53pm Living Will Yes July 11, 2024 11:00am Do you have a Healthcare Power of Group Product Manager? Yes July 11, 2024 11:00am Name of Medical Power of Group Product Manager . July 11, 2024 11:00am Date Activated [...] you have a Healthcare Pow er of Group Product Manager? Yes July 11, 2024 11:00am Name of Medical Power of Group Product Manager . July 11, 2024 11:00am Do you have a Healthcare Pow er of Group Product Manager? Yes September 05, 2024 3:19pm Name of Medical Power of Group Product Manager Jeanette dowling, sister September 05, 2024 3:19pm Advance Directive Response Recorded Date/ Time Living Will Yes July 11, 2024 11:00am Do you have a Healthcare Pow er of Group Product Manager? Yes July 11, 2024 11:00am Name of Medical Power of Group Product Manager . July 11, 2024 11:00am Do you have a Healthcare Pow er of Group Product Manager? Yes September 05, 2024 3:19pm Name of Medical Power of Group Product Manager Jeanettelesley dowling, sister September 05, 2024 3:19pm Do you have a Healthcare Pow er of Group Product Manager? Yes October 23, 2024 9:19am Advance Directive Response Recorded Date/ Time Living Will Yes July 11, 2024 11:00am Do you have a Healthcare Pow er of Group Product Manager? Yes July 11, 2024 11:00am Name of Medical Power of Group Product Manager . July 11, 2024 11:00am Do you have a Healthcare Pow er of Group Product Manager? Yes November 07, 2024 11:36am Name of Medical Power of Group Product Manager jeanette shiloting er November 07, 2024 11:36am Do you have a Healthcare Pow er of Group Product Manager? Yes September 05, 2024 3:19pm Name of Medical Power of Group Product Manager Jeanettelesley dowling, sister September 05, 2024 3:19pm Do you have a Healthcare Pow er of Group Product Manager? Yes October 23, 2024 9:19am Advance Directive Response Recorded Date/ Time Living Will Yes July 11, 2024 11:00am Do you have a Healthcare Pow er of Group Product Manager? Yes July 11, 2024 11:00am Name of Medical Power of Group Product Manager . July 11, 2024 11:00am Do you have a Healthcare Pow er of Group Product Manager? Yes November 07, 2024 4:28pm Name of Medical Power of Group Product Manager jeanette betting er November 07, 2024 4:28pm Do you have a Healthcare Pow er of Group Product Manager? Yes September 05, 2024 3:19pm Name of Medical Power of Group Product Manager Jeanettelesley dowling, sister September 05, 2024 3:19pm Do you have a Healthcare Pow er of Group Product Manager? Yes October 23, 2024 9:19am Date Activated Date Inactivated Comments 08/19/2024 3:56 PM 08/21/2024 6:00 PM Date Activated Date Inactivated Comments 01/11/2024 5:29 PM 07/24/2024 8:46 AM Date Activated Date Inactivated Comments 09/08/2023 10:55 PM 09/27/2023 5:15 PM Question Answer Comments Full Code Order Discussed With: Patient Advance Directive Response Recorded Date/ Time Do you have a Healthcare Pow er of Group Product Manager? Yes November 07, 2024 4:28pm Name of Medical Power of Group Product Manager jeanettelesley jama er November 07, 2024 4:28pm Do you have a Healthcare Pow er of Group Product Manager? Yes September 05, 2024 3:19pm Name of Medical Power of Group Product Manager Jeanette dowling, September 05, 2024 3:19pm Do you have a Healthcare Pow er of Group Product Manager? Yes October 23, 2024 9:19am Do you have a Healthcare Pow er of Group Product Manager? No November 20, 2024 9:45pm Date Activated [...] you have a Healthcare Pow er of Group Product Manager? Yes November 07, 2024 4:28pm Name of Medical Power of Group Product Manager jeanette jama er November 07, 2024 4:28pm Do you have a Healthcare Pow er of Group Product Manager? Yes November 25, 2024 5:03pm Do you have a Healthcare Pow er of Group Product Manager? Yes September 05, 2024 3:19pm Name of Medical Power of Group Product Manager Jeanette dowling, September 05, 2024 3:19pm Do you have a Healthcare Pow er of Group Product Manager? Yes October 23, 2024 9:19am Do you have a Healthcare Pow er of Group Product Manager? No November 20, 2024 9:45pm Date Activated [...] you have a Healthcare Pow er of Group Product Manager? Yes November 07, 2024 4:28pm Name of Medical Power of Group Product Manager jeanette garvin November 07, 2024 4:28pm Do you have a Healthcare Pow er of Group Product Manager? Yes November 25, 2024 5:03pm Do you have a Healthcare Pow er of Group Product Manager? No December 17, 2024 8:33am Do you have a Healthcare Pow er of Group Product Manager? Yes September 05, 2024 3:19pm Name of Medical Power of Group Product Manager Jeanette Garvin, sister September 05, 2024 3:19pm Do you have a Healthcare Pow er of Group Product Manager? Yes October 23, 2024 9:19am Do you have a Healthcare Pow er of Group Product Manager? No November 20, 2024 9:45pm Chief Complaint [...] 3:29 pm GERD (gastroesophageal reflux disease) J [facility] 2024 3:29pm Osteoporosis September 04, 2024 [...] (HCC) Procedures PROVIDER ORDERED FOLLOW UP OFFICE/OUTPATIENT [facility] 60 MINUTES Ashly Lange, DEPENDENCY DIRECTOR.PROCESS DESCRIPTION WRITER [address] [place] [id number] Referral ID Status Reason Start Date Expiration Date Visits Requested Visits Authorized [id number] Authorized PCP Requested Referral 10/02/2023 07/31/2024 1 1 Specialty Diagnoses / Procedures Referred By Contac t Referred To Contact Nutrition Diagnoses Inflammatory bowel disease Perforated appendix Severe protein-calorie malnutrition (HCC) Procedures CONSULT TO NUTRITION THERAPY MEDICAL NUTRITION ASSMT&IVNTJ INDIV EACH 15 GA aKilyn Coleman MD [address] [facility] [place] [address] Referral ID Status Reason Start Date Expiration Date Visits Requested Visits Authorized [id number] Authorized PCP Requested Referral 10/11/2023 10/10/2024 1 4 Specialty Diagnoses / Procedures Referred By Contac t Referred To Contact General Surgery Diagnoses Perforated appendix Procedures CONSULT TO GENERAL SURGERY OFFICE/OUTPATIENT [facility] 60 MINUTES Kailyn Coleman MD [address] [place] [id number] Referral ID Status Reason Start Date Expiration Date Visits Requested Visits Authorized [id number] Authorized PCP Requested Referral 10/11/2023 10/10/2024 1 1 Specialty Diagnoses / Procedures Referred By Contac t Referred To Contact CT IMAGING Diagnoses Inflammatory bowel disease Perforated appendix Procedures CT ENTEROGRAPHY W IVCON CT ABD & PELVIS W/CONTRAST Kailyn Coleman MD [address] [place] [id number] [facility] [place] [address] Referral ID Status Reason Start Date Expiration Date Visits Requested Visits Authorized [id number] Pending Review Auto-Generat ed Referral 10/11/2023 11/09/2024 1 1 Specialty Diagnoses / Procedures Referred By Contac t Referred To Contact Neurology Diagnoses Focal epilepsy (HCC) Procedures CONSULT TO NEUROLOGY OFFICE/OUTPATIENT [facility] 60 MINUTES Cristobal Junior, DEPENDENCY DIRECTOR.PROCESS DESCRIPTION WRITER [address] [place] [address] Referral ID Status Reason Start Date Expiration Date Visits Requested Visits Authorized [id number] Authorized PCP Requested Referral 10/23/2023 10/22/2024 1 1 Specialty Diagnoses / Procedures Referred By Contac t Referred To Contact Pulmonary Disease Diagnoses Lung nodule Procedures CONSULT TO LUNG NODULE CLINIC OFFICE/OUTPATIENT [facility] 60 MINUTES Amish Castorena, DEPENDENCY DIRECTOR.PROCESS DESCRIPTION WRITER [address] [place] [address] Referral ID Status Reason Start Date Expiration Date Visits Requested Visits Authorized [id number] Authorized PCP Requested Referral 12/04/2023 12/03/2024 1 1 Specialty Diagnoses / Procedures Referred By Contac t Referred To Contact Diagnoses Perforated appendix Procedures REFER TO PACC / [facility] - PREOPERATIVE OPTIMIZATION OFFICE/OUTPATIENT [facility] 60 MINUTES Tessa Spring MD [address] [place] [address] Referral ID Status Reason Start Date Expiration Date Visits Requested Visits Authorized [id number] Authorized PCP Requested Referral 12/18/2023 12/17/2024 1 1 Specialty Diagnoses / Procedures Referred By Contac t Referred To Contact Oncology Diagnoses Malignant neoplasm of ascending colon (HCC) Procedures CONSULT TO ONCOLOGY OFFICE/OUTPATIENT [facility] 60 [place] [address] [place] [address] [place] [address] [place] [address] Referral ID Status Reason Start Date Expiration Date Visits Requested Visits Authorized [id number] Authorized PCP Requested Referral 01/17/2025 1 1 Specialty Diagnoses / Procedures Referred By Contac t Referred To Contact CT IMAGING Diagnoses Intra-abdominal and pelvic swelling, mass and lump, unspecified site Procedures CT CHEST WO IVCON DIAGNOSTIC COMPUTED TOMOGRAPHY THORAX W/O CNTRST Tessa Spring MD [address] [place] [address] Ct Imaging [place] [address] Referral ID Status Reason Start Date Expiration Date Visits Requested Visits Authorized [id number] Authorized Auto-Generat ed Referral 02/16/2025 1 1 Specialty Diagnoses / Procedures Referred By Contac t Referred To Contact CT IMAGING Diagnoses Right lower quadrant abdominal pain Procedures CT ABD/PEL W IVCON CT ABD & PELVIS W/CONTRAST Tessa Spring MD [address] [place] [address] Ct Imaging [place] [address] Referral ID Status Reason Start Date Expiration Date Visits Requested Visits Authorized [id number] Authorized Auto-Generat ed Referral 4 04/06/2025 1 1 Specialty Diagnoses / Procedures Referred By Allen t Referred To Contact CT IMAGING Diagnoses Lung nodules Procedures CT CHEST WO IVCON DIAGNOSTIC COMPUTED TOMOGRAPHY THORAX W/O CNTRST Fe Edmond, LETI.PROCESS DESCRIPTION WRITER [address] [place] [phone] Ct Imaging [facility] Referral ID Status Reason Start Date Expiration Date Visits Requested Visits Authorized [id number] New Request Auto-Generat ed Referral 04/27/2024 04/18/2025 1 1 Additional Source Comments INFORMATION SOURCE (unrecogn ized section and content) DATE CREATED AUTHOR 11/30/2019 [facility] DATE CREATED AUTHOR AUTHOR'S ORGANIZ ATION 11/01/2022 [facility] DATE CREATED AUTHOR AUTHOR'S ORGANIZ ATION 12/30/2023 [facility] DATE CREATED AUTHOR AUTHOR'S ORGANIZ ATION 10/21/2024 [facility] DATE CREATED AUTHOR AUTHOR'S ORGANIZ ATION 11/30/2024 [facility] DATE CREATED AUTHOR AUTHOR'S ORGANIZ ATION 12/15/2024 [facility] DATE CREATED AUTHOR AUTHOR'S ORGANIZ ATION 02/01/2025 [facility] DATE CREATED AUTHOR AUTHOR'S ORGANIZ ATION 02/01/2025 [facility] Source Comments (unrecognize d section and content) In the event this informatio n is protected by the Federal Confidentiality of Alcohol and Drug Abuse Patient Records regulations: The Federal rules restrict any use of the information to criminally investigate or prosecute any alcohol or drug abuse patient.[facility]In the event this information is protected by the Federal Confidentiality of Alcohol and Drug Abuse Patient Records regulations: The Federal rules restrict any use of the information to criminally investigate or prosecute any alcohol or drug abuse patient.[facility]In the event this information is protected by the Federal Confidentiality of Alcohol and Drug Abuse Patient Records regulations: The Federal rules restrict any use of the information to criminally investigate or prosecute any alcohol or drug abuse patient.[facility]In the event this information is protected by the Federal Confidentiality of Alcohol and Drug Abuse Patient Records regulations: The Federal rules restrict any use of the information to criminally investigate or prosecute any alcohol or drug abuse patient.[facility] ColumbusIn the event this information is protected by the Federal Confidentiality of Alcohol and Drug Abuse Patient Records regulations: The Federal rules restrict any use of the information to criminally investigate or prosecute any alcohol or drug abuse patient.[facility] ColumbusIn the event this information is protected by the Federal Confidentiality of Alcohol and Drug Abuse Patient Records regulations: The Federal rules restrict any use of the information to criminally investigate or prosecute any alcohol or drug abuse patient.[facility] ColumbusIn the event this information is protected by the Federal Confidentiality of Alcohol and Drug Abuse Patient Records regulations: The Federal rules restrict any use of the information to criminally investigate or prosecute any alcohol or drug abuse patient.[facility] ColumbusIn the event this information is protected by the Federal Confidentiality of Alcohol and Drug Abuse Patient Records regulations: The Federal rules restrict any use of the information to criminally investigate or prosecute any alcohol or drug abuse patient.[facility] ColumbusIn the event this information is protected by the Federal Confidentiality of Alcohol and Drug Abuse Patient Records regulations: The Federal rules restrict any use of the information to criminally investigate or prosecute any alcohol or drug abuse patient.[facility] ColumbusIn the event this information is protected by the Federal Confidentiality of Alcohol and Drug Abuse Patient Records regulations: The Federal rules restrict any use of the information to criminally investigate or prosecute any alcohol or drug abuse patient.[facility] ColumbusIn the event this information is protected by the Federal Confidentiality of Alcohol and Drug Abuse Patient Records regulations: The Federal rules restrict any use of the information to criminally investigate or prosecute any alcohol or drug abuse patient.[facility] ColumbusIn the event this information is protected by the Federal Confidentiality of Alcohol and Drug Abuse Patient Records regulations: The Federal rules restrict any use of the information to criminally investigate or prosecute any alcohol or drug abuse patient.[facility] ColumbusIn the event this information is protected by the Federal Confidentiality of Alcohol and Drug Abuse Patient Records regulations: The Federal rules restrict any use of the information to criminally investigate or prosecute any alcohol or drug abuse patient.[facility] ColumbusIn the event this information is protected by the Federal Confidentiality of Alcohol and Drug Abuse Patient Records regulations: The Federal rules restrict any use of the information to criminally investigate or prosecute any alcohol or drug abuse patient.[facility] ColumbusIn the event this information is protected by the Federal Confidentiality of Alcohol and Drug Abuse Patient Records regulations: The Federal rules restrict any use of the information to criminally investigate or prosecute any alcohol or drug abuse patient.[facility] ColumbusIn the event this information is protected by the Federal Confidentiality of Alcohol and Drug Abuse Patient Records regulations: The Federal rules restrict any use of the information to criminally investigate or prosecute any alcohol or drug abuse patient.[facility] ColumbusIn the event this information is protected by the Federal Confidentiality of Alcohol and Drug Abuse Patient Records regulations: The Federal rules restrict any use of the information to criminally investigate or prosecute any alcohol or drug abuse patient.[facility] ColumbusIn the event this information is protected by the Federal Confidentiality of Alcohol and Drug Abuse Patient Records regulations: The Federal rules restrict any use of the information to criminally investigate or prosecute any alcohol or drug abuse patient.[facility] ColumbusIn the event this information is protected by the Federal Confidentiality of Alcohol and Drug Abuse Patient Records regulations: The Federal rules restrict any use of the information to criminally investigate or prosecute any alcohol or drug abuse patient.[facility] ColumbusIn the event this information is protected by the Federal Confidentiality of Alcohol and Drug Abuse Patient Records regulations: The Federal rules restrict any use of the information to criminally investigate or prosecute any alcohol or drug abuse patient.[facility] ColumbusIn the event this information is protected by the Federal Confidentiality of Alcohol and Drug Abuse Patient Records regulations: The Federal rules restrict any use of the information to criminally investigate or prosecute any alcohol or drug abuse patient.[facility] ColumbusIn the event this information is protected by the Federal Confidentiality of Alcohol and Drug Abuse Patient Records regulations: The Federal rules restrict any use of the information to criminally investigate or prosecute any alcohol or drug abuse patient.[facility] ColumbusIn the event this information is protected by the Federal Confidentiality of Alcohol and Drug Abuse Patient Records regulations: The Federal rules restrict any use of the information to criminally investigate or prosecute any alcohol or drug abuse patient.[facility] ColumbusIn the event this information is protected by the Federal Confidentiality of Alcohol and Drug Abuse Patient Records regulations: The Federal rules restrict any use of the information to criminally investigate or prosecute any alcohol or drug abuse patient.[facility] ColumbusIn the event this information is protected by the Federal Confidentiality of Alcohol and Drug Abuse Patient Records regulations: The Federal rules restrict any use of the information to criminally investigate or prosecute any alcohol or drug abuse patient.[facility] ColumbusIn the event this information is protected by the Federal Confidentiality of Alcohol and Drug Abuse Patient Records regulations: The Federal rules restrict any use of the information to criminally investigate or prosecute any alcohol or drug abuse patient.[facility] ColumbusIn the event this information is protected by the Federal Confidentiality of Alcohol and Drug Abuse Patient Records regulations: The Federal rules restrict any use of the information to criminally investigate or prosecute any alcohol or drug abuse patient.[facility] ColumbusIn the event this information is protected by the Federal Confidentiality of Alcohol and Drug Abuse Patient Records regulations: The Federal rules restrict any use of the information to criminally investigate or prosecute any alcohol or drug abuse patient.[facility] ColumbusIn the event this information is protected by the Federal Confidentiality of Alcohol and Drug Abuse Patient Records regulations: The Federal rules restrict any use of the information to criminally investigate or prosecute any alcohol or drug abuse patient.[facility] ColumbusIn the event this information is protected by the Federal Confidentiality of Alcohol and Drug Abuse Patient Records regulations: The Federal rules restrict any use of the information to criminally investigate or prosecute any alcohol or drug abuse patient.[facility] ColumbusIn the event this information is protected by the Federal Confidentiality of Alcohol and Drug Abuse Patient Records regulations: The Federal rules restrict any use of the information to criminally investigate or prosecute any alcohol or drug abuse patient.[facility] ColumbusIn the event this information is protected by the Federal Confidentiality of Alcohol and Drug Abuse Patient Records regulations: The Federal rules restrict any use of the information to criminally investigate or prosecute any alcohol or drug abuse patient.[facility] ColumbusIn the event this information is protected by the Federal Confidentiality of Alcohol and Drug Abuse Patient Records regulations: The Federal rules restrict any use of the information to criminally investigate or prosecute any alcohol or drug abuse patient.[facility] ColumbusIn the event this information is protected by the Federal Confidentiality of Alcohol and Drug Abuse Patient Records regulations: The Federal rules restrict any use of the information to criminally investigate or prosecute any alcohol or drug abuse patient.[facility] ColumbusIn the event this information is protected by the Federal Confidentiality of Alcohol and Drug Abuse Patient Records regulations: The Federal rules restrict any use of the information to criminally investigate or prosecute any alcohol or drug abuse patient.[facility] ColumbusIn the event this information is protected by the Federal Confidentiality of Alcohol and Drug Abuse Patient Records regulations: The Federal rules restrict any use of the information to criminally investigate or prosecute any alcohol or drug abuse patient.[facility] ColumbusIn the event this information is protected by the Federal Confidentiality of Alcohol and Drug Abuse Patient Records regulations: The Federal rules restrict any use of the information to criminally investigate or prosecute any alcohol or drug abuse patient.[facility] ColumbusIn the event this information is protected by the Federal Confidentiality of Alcohol and Drug Abuse Patient Records regulations: The Federal rules restrict any use of the information to criminally investigate or prosecute any alcohol or drug abuse patient.[facility] ColumbusIn the event this information is protected by the Federal Confidentiality of Alcohol and Drug Abuse Patient Records regulations: The Federal rules restrict any use of the information to criminally investigate or prosecute any alcohol or drug abuse patient.[facility] ColumbusIn the event this information is protected by the Federal Confidentiality of Alcohol and Drug Abuse Patient Records regulations: The Federal rules restrict any use of the information to criminally investigate or prosecute any alcohol or drug abuse patient.[facility] ColumbusIn the event this information is protected by the Federal Confidentiality of Alcohol and Drug Abuse Patient Records regulations: The Federal rules restrict any use of the information to criminally investigate or prosecute any alcohol or drug abuse patient.[facility] ColumbusIn the event this information is protected by the Federal Confidentiality of Alcohol and Drug Abuse Patient Records regulations: The Federal rules restrict any use of the information to criminally investigate or prosecute any alcohol or drug abuse patient.[facility] ColumbusIn the event this information is protected by the Federal Confidentiality of Alcohol and Drug Abuse Patient Records regulations: The Federal rules restrict any use of the information to criminally investigate or prosecute any alcohol or drug abuse patient.[facility] ColumbusIn the event this information is protected by the Federal Confidentiality of Alcohol and Drug Abuse Patient Records regulations: The Federal rules restrict any use of the information to criminally investigate or prosecute any alcohol or drug abuse patient.[facility] ColumbusIn the event this information is protected by the Federal Confidentiality of Alcohol and Drug Abuse Patient Records regulations: The Federal rules restrict any use of the information to criminally investigate or prosecute any alcohol or drug abuse patient.[facility] ColumbusIn the event this information is protected by the Federal Confidentiality of Alcohol and Drug Abuse Patient Records regulations: The Federal rules restrict any use of the information to criminally investigate or prosecute any alcohol or drug abuse patient.[facility] ColumbusIn the event this information is protected by the Federal Confidentiality of Alcohol and Drug Abuse Patient Records regulations: The Federal rules restrict any use of the information to criminally investigate or prosecute any alcohol or drug abuse patient.[facility] ColumbusIn the event this information is protected by the Federal Confidentiality of Alcohol and Drug Abuse Patient Records regulations: The Federal rules restrict any use of the information to criminally investigate or prosecute any alcohol or drug abuse patient.[facility] ColumbusIn the event this information is protected by the Federal Confidentiality of Alcohol and Drug Abuse Patient Records regulations: The Federal rules restrict any use of the information to criminally investigate or prosecute any alcohol or drug abuse patient.[facility] ColumbusIn the event this information is protected by the Federal Confidentiality of Alcohol and Drug Abuse Patient Records regulations: The Federal rules restrict any use of the information to criminally investigate or prosecute any alcohol or drug abuse patient.[facility] ColumbusIn the event this information is protected by the Federal Confidentiality of Alcohol and Drug Abuse Patient Records regulations: The Federal rules restrict any use of the information to criminally investigate or prosecute any alcohol or drug abuse patient.[facility] ColumbusIn the event this information is protected by the Federal Confidentiality of Alcohol and Drug Abuse Patient Records regulations: The Federal rules restrict any use of the information to criminally investigate or prosecute any alcohol or drug abuse patient.[facility] ColumbusIn the event this information is protected by the Federal Confidentiality of Alcohol and Drug Abuse Patient Records regulations: The Federal rules restrict any use of the information to criminally investigate or prosecute any alcohol or drug abuse patient.[facility] ColumbusIn the event this information is protected by the Federal Confidentiality of Alcohol and Drug Abuse Patient Records regulations: The Federal rules restrict any use of the information to criminally investigate or prosecute any alcohol or drug abuse patient.[facility] ColumbusIn the event this information is protected by the Federal Confidentiality of Alcohol and Drug Abuse Patient Records regulations: The Federal rules restrict any use of the information to criminally investigate or prosecute any alcohol or drug abuse patient.[facility] ColumbusIn the event this information is protected by the Federal Confidentiality of Alcohol and Drug Abuse Patient Records regulations: The Federal rules restrict any use of the information to criminally investigate or prosecute any alcohol or drug abuse patient.[facility] [place]In the event this information is protected by the Federal Confidentiality of Alcohol and Drug Abuse Patient Records regulations: The Federal rules restrict any use of the information to criminally investigate or prosecute any alcohol or drug abuse patient.[facility] [place]In the event this information is protected by the Federal Confidentiality of Alcohol and Drug Abuse Patient Records regulations: The Federal rules restrict any use of the information to criminally investigate or prosecute any alcohol or drug abuse patient.[facility] [place]In the event this information is protected by the Federal Confidentiality of Alcohol and Drug Abuse Patient Records regulations: The Federal rules restrict any use of the information to criminally investigate or prosecute any alcohol or drug abuse patient.[facility] [place]In the event this information is protected by the Federal Confidentiality of Alcohol and Drug Abuse Patient Records regulations: The Federal rules restrict any use of the information to criminally investigate or prosecute any alcohol or drug abuse patient.[facility] [place]In the event this information is protected by the Federal Confidentiality of Alcohol and Drug Abuse Patient Records regulations: The Federal rules restrict any use of the information to criminally investigate or prosecute any alcohol or drug abuse patient.[facility] [place]In the event this information is protected by the Federal Confidentiality of Alcohol and Drug Abuse Patient Records regulations: The Federal rules restrict any use of the information to criminally investigate or prosecute any alcohol or drug abuse patient.[facility] [place]In the event this information is protected by the Federal Confidentiality of Alcohol and Drug Abuse Patient Records regulations: The Federal rules restrict any use of the information to criminally investigate or prosecute any alcohol or drug abuse patient.[facility] [place]In the event this information is protected by the Federal Confidentiality of Alcohol and Drug Abuse Patient Records regulations: The Federal rules restrict any use of the information to criminally investigate or prosecute any alcohol or drug abuse patient.[facility] [place]In the event this information is protected by the Federal Confidentiality of Alcohol and Drug Abuse Patient Records regulations: The Federal rules restrict any use of the information to criminally investigate or prosecute any alcohol or drug abuse patient.[facility] [place]In the event this information is protected by the Federal Confidentiality of Alcohol and Drug Abuse Patient Records regulations: The Federal rules restrict any use of the information to criminally investigate or prosecute any alcohol or drug abuse patient.[facility] [place]In the event this information is protected by the Federal Confidentiality of Alcohol and Drug Abuse Patient Records regulations: The Federal rules restrict any use of the information to criminally investigate or prosecute any alcohol or drug abuse patient.[facility] [place]In the event this information is protected by the Federal Confidentiality of Alcohol and Drug Abuse Patient Records regulations: The Federal rules restrict any use of the information to criminally investigate or prosecute any alcohol or drug abuse patient.[facility] [place]In the event this information is protected by the Federal Confidentiality of Alcohol and Drug Abuse Patient Records regulations: The Federal rules restrict any use of the information to criminally investigate or prosecute any alcohol or drug abuse patient.[facility] [place]In the event this information is protected by the Federal Confidentiality of Alcohol and Drug Abuse Patient Records regulations: The Federal rules restrict any use of the information to criminally investigate or prosecute any alcohol or drug abuse patient.[facility] [place]In the event this information is protected by the Federal Confidentiality of Alcohol and Drug Abuse Patient Records regulations: The Federal rules restrict any use of the information to criminally investigate or prosecute any alcohol or drug abuse patient.[facility] [place]In the event this information is protected by the Federal Confidentiality of Alcohol and Drug Abuse Patient Records regulations: The Federal rules restrict any use of the information to criminally investigate or prosecute any alcohol or drug abuse patient.[facility] [place]In the event this information is protected by the Federal Confidentiality of Alcohol and Drug Abuse Patient Records regulations: The Federal rules restrict any use of the information to criminally investigate or prosecute any alcohol or drug abuse patient.[facility] [place]In the event this information is protected by the Federal Confidentiality of Alcohol and Drug Abuse Patient Records regulations: The Federal rules restrict any use of the information to criminally investigate or prosecute any alcohol or drug abuse patient.[facility] [place]In the event this information is protected by the Federal Confidentiality of Alcohol and Drug Abuse Patient Records regulations: The Federal rules restrict any use of the information to criminally investigate or prosecute any alcohol or drug abuse patient.[facility] [place]In the event this information is protected by the Federal Confidentiality of Alcohol and Drug Abuse Patient Records regulations: The Federal rules restrict any use of the information to criminally investigate or prosecute any alcohol or drug abuse patient.[facility] [place]In the event this information is protected by the Federal Confidentiality of Alcohol and Drug Abuse Patient Records regulations: The Federal rules restrict any use of the information to criminally investigate or prosecute any alcohol or drug abuse patient.[facility] [place]In the event this information is protected by the Federal Confidentiality of Alcohol and Drug Abuse Patient Records regulations: The Federal rules restrict any use of the information to criminally investigate or prosecute any alcohol or drug abuse patient.[facility] [place]In the event this information is protected by the Federal Confidentiality of Alcohol and Drug Abuse Patient Records regulations: The Federal rules restrict any use of the information to criminally investigate or prosecute any alcohol or drug abuse patient.[facility] [place]In the event this information is protected by the Federal Confidentiality of Alcohol and Drug Abuse Patient Records regulations: The Federal rules restrict any use of the information to criminally investigate or prosecute any alcohol or drug abuse patient.[facility] [place]In the event this information is protected by the Federal Confidentiality of Alcohol and Drug Abuse Patient Records regulations: The Federal rules restrict any use of the information to criminally investigate or prosecute any alcohol or drug abuse patient.[facility] [place]In the event this information is protected by the Federal Confidentiality of Alcohol and Drug Abuse Patient Records regulations: The Federal rules restrict any use of the information to criminally investigate or prosecute any alcohol or drug abuse patient.[facility] [place]In the event this information is protected by the Federal Confidentiality of Alcohol and Drug Abuse Patient Records regulations: The Federal rules restrict any use of the information to criminally investigate or prosecute any alcohol or drug abuse patient.[facility] [place]In the event this information is protected by the Federal Confidentiality of Alcohol and Drug Abuse Patient Records regulations: The Federal rules restrict any use of the information to criminally investigate or prosecute any alcohol or drug abuse patient.[facility] [place]In the event this information is protected by the Federal Confidentiality of Alcohol and Drug Abuse Patient Records regulations: The Federal rules restrict any use of the information to criminally investigate or prosecute any alcohol or drug abuse patient.[facility] [place]In the event this information is protected by the Federal Confidentiality of Alcohol and Drug Abuse Patient Records regulations: The Federal rules restrict any use of the information to criminally investigate or prosecute any alcohol or drug abuse patient.[facility] [place]In the event this information is protected by the Federal Confidentiality of Alcohol and Drug Abuse Patient Records regulations: The Federal rules restrict any use of the information to criminally investigate or prosecute any alcohol or drug abuse patient.[facility] [place]In the event this information is protected by the Federal Confidentiality of Alcohol and Drug Abuse Patient Records regulations: The Federal rules restrict any use of the information to criminally investigate or prosecute any alcohol or drug abuse patient.[facility] [place]In the event this information is protected by the Federal Confidentiality of Alcohol and Drug Abuse Patient Records regulations: The Federal rules restrict any use of the information to criminally investigate or prosecute any alcohol or drug abuse patient.[facility] [place]In the event this information is protected by the Federal Confidentiality of Alcohol and Drug Abuse Patient Records regulations: The Federal rules restrict any use of the information to criminally investigate or prosecute any alcohol or drug abuse patient.[facility] [place]In the event this information is protected by the Federal Confidentiality of Alcohol and Drug Abuse Patient Records regulations: The Federal rules restrict any use of the information to criminally investigate or prosecute any alcohol or drug abuse patient.[facility] [place]In the event this information is protected by the Federal Confidentiality of Alcohol and Drug Abuse Patient Records regulations: The Federal rules restrict any use of the information to criminally investigate or prosecute any alcohol or drug abuse patient.[facility] [place]In the event this information is protected by the Federal Confidentiality of Alcohol and Drug Abuse Patient Records regulations: The Federal rules restrict any use of the information to criminally investigate or prosecute any alcohol or drug abuse patient.[facility] [place]In the event this information is protected by the Federal Confidentiality of Alcohol and Drug Abuse Patient Records regulations: The Federal rules restrict any use of the information to criminally investigate or prosecute any alcohol or drug abuse patient.[facility] [place]In the event this information is protected by the Federal Confidentiality of Alcohol and Drug Abuse Patient Records regulations: The Federal rules restrict any use of the information to criminally investigate or prosecute any alcohol or drug abuse patient.[facility] [place]In the event this information is protected by the Federal Confidentiality of Alcohol and Drug Abuse Patient Records regulations: The Federal rules restrict any use of the information to criminally investigate or prosecute any alcohol or drug abuse patient.[facility] [place]In the event this information is protected by the Federal Confidentiality of Alcohol and Drug Abuse Patient Records regulations: The Federal rules restrict any use of the information to criminally investigate or prosecute any alcohol or drug abuse patient.[facility] [place]In the event this information is protected by the Federal Confidentiality of Alcohol and Drug Abuse Patient Records regulations: The Federal rules restrict any use of the information to criminally investigate or prosecute any alcohol or drug abuse patient.[facility] [place]In the event this information is protected by the Federal Confidentiality of Alcohol and Drug Abuse Patient Records regulations: The Federal rules restrict any use of the information to criminally investigate or prosecute any alcohol or drug abuse patient.[facility] [place]In the event this information is protected by the Federal Confidentiality of Alcohol and Drug Abuse Patient Records regulations: The Federal rules restrict any use of the information to criminally investigate or prosecute any alcohol or drug abuse patient.[facility] [place]In the event this information is protected by the Federal Confidentiality of Alcohol and Drug Abuse Patient Records regulations: The Federal rules restrict any use of the information to criminally investigate or prosecute any alcohol or drug abuse patient.[facility] [place]In the event this information is protected by the Federal Confidentiality of Alcohol and Drug Abuse Patient Records regulations: The Federal rules restrict any use of the information to criminally investigate or prosecute any alcohol or drug abuse patient.[facility] [place]In the event this information is protected by the Federal Confidentiality of Alcohol and Drug Abuse Patient Records regulations: The Federal rules restrict any use of the information to criminally investigate or prosecute any alcohol or drug abuse patient.[facility] [place]In the event this information is protected by the Federal Confidentiality of Alcohol and Drug Abuse Patient Records regulations: The Federal rules restrict any use of the information to criminally investigate or prosecute any alcohol or drug abuse patient.[facility] [place]In the event this information is protected by the Federal Confidentiality of Alcohol and Drug Abuse Patient Records regulations: The Federal rules restrict any use of the information to criminally investigate or prosecute any alcohol or drug abuse patient.[facility] [place]In the event this information is protected by the Federal Confidentiality of Alcohol and Drug Abuse Patient Records regulations: The Federal rules restrict any use of the information to criminally investigate or prosecute any alcohol or drug abuse patient.[facility] [place]In the event this information is protected by the Federal Confidentiality of Alcohol and Drug Abuse Patient Records regulations: The Federal rules restrict any use of the information to criminally investigate or prosecute any alcohol or drug abuse patient.[facility] [place]In the event this information is protected by the Federal Confidentiality of Alcohol and Drug Abuse Patient Records regulations: The Federal rules restrict any use of the information to criminally investigate or prosecute any alcohol or drug abuse patient.[facility] [place]In the event this information is protected by the Federal Confidentiality of Alcohol and Drug Abuse Patient Records regulations: The Federal rules restrict any use of the information to criminally investigate or prosecute any alcohol or drug abuse patient.[facility] [place]In the event this information is protected by the Federal Confidentiality of Alcohol and Drug Abuse Patient Records regulations: The Federal rules restrict any use of the information to criminally investigate or prosecute any alcohol or drug abuse patient.[facility] [place]In the event this information is protected by the Federal Confidentiality of Alcohol and Drug Abuse Patient Records regulations: The Federal rules restrict any use of the information to criminally investigate or prosecute any alcohol or drug abuse patient.[facility] [place]In the event this information is protected by the Federal Confidentiality of Alcohol and Drug Abuse Patient Records regulations: The Federal rules restrict any use of the information to criminally investigate or prosecute any alcohol or drug abuse patient.[facility] [place]In the event this information is protected by the Federal Confidentiality of Alcohol and Drug Abuse Patient Records regulations: The Federal rules restrict any use of the information to criminally investigate or prosecute any alcohol or drug abuse patient.[facility] [place]In the event this information is protected by the Federal Confidentiality of Alcohol and Drug Abuse Patient Records regulations: The Federal rules restrict any use of the information to criminally investigate or prosecute any alcohol or drug abuse patient.[facility] [place]In the event this information is protected by the Federal Confidentiality of Alcohol and Drug Abuse Patient Records regulations: The Federal rules restrict any use of the information to criminally investigate or prosecute any alcohol or drug abuse patient.[facility] [place]In the event this information is protected by the Federal Confidentiality of Alcohol and Drug Abuse Patient Records regulations: The Federal rules restrict any use of the information to criminally investigate or prosecute any alcohol or drug abuse patient.[facility] [place]In the event this information is protected by the Federal Confidentiality of Alcohol and Drug Abuse Patient Records regulations: The Federal rules restrict any use of the information to criminally investigate or prosecute any alcohol or drug abuse patient.[facility] [place]In the event this information is protected by the Federal Confidentiality of Alcohol and Drug Abuse Patient Records regulations: The Federal rules restrict any use of the information to criminally investigate or prosecute any alcohol or drug abuse patient.[facility] [place]In the event this information is protected by the Federal Confidentiality of Alcohol and Drug Abuse Patient Records regulations: The Federal rules restrict any use of the information to criminally investigate or prosecute any alcohol or drug abuse patient.[facility] [place]In the event this information is protected by the Federal Confidentiality of Alcohol and Drug Abuse Patient Records regulations: The Federal rules restrict any use of the information to criminally investigate or prosecute any alcohol or drug abuse patient.[facility] [place]In the event this information is protected by the Federal Confidentiality of Alcohol and Drug Abuse Patient Records regulations: The Federal rules restrict any use of the information to criminally investigate or prosecute any alcohol or drug abuse patient.[facility] [place]In the event this information is protected by the Federal Confidentiality of Alcohol and Drug Abuse Patient Records regulations: The Federal rules restrict any use of the information to criminally investigate or prosecute any alcohol or drug abuse patient.[facility] [place]In the event this information is protected by the Federal Confidentiality of Alcohol and Drug Abuse Patient Records regulations: The Federal rules restrict any use of the information to criminally investigate or prosecute any alcohol or drug abuse patient.[facility] [place]In the event this information is protected by the Federal Confidentiality of Alcohol and Drug Abuse Patient Records regulations: The Federal rules restrict any use of the information to criminally investigate or prosecute any alcohol or drug abuse patient.[facility] [place]In the event this information is protected by the Federal Confidentiality of Alcohol and Drug Abuse Patient Records regulations: The Federal rules restrict any use of the information to criminally investigate or prosecute any alcohol or drug abuse patient.[facility] [place]In the event this information is protected by the Federal Confidentiality of Alcohol and Drug Abuse Patient Records regulations: The Federal rules restrict any use of the information to criminally investigate or prosecute any alcohol or drug abuse patient.[facility] [place]In the event this information is protected by the Federal Confidentiality of Alcohol and Drug Abuse Patient Records regulations: The Federal rules restrict any use of the information to criminally investigate or prosecute any alcohol or drug abuse patient.[facility] [place]In the event this information is protected by the Federal Confidentiality of Alcohol and Drug Abuse Patient Records regulations: The Federal rules restrict any use of the information to criminally investigate or prosecute any alcohol or drug abuse patient.[facility] [place]In the event this information is protected by the Federal Confidentiality of Alcohol and Drug Abuse Patient Records regulations: The Federal rules restrict any use of the information to criminally investigate or prosecute any alcohol or drug abuse patient.[facility] [place]In the event this information is protected by the Federal Confidentiality of Alcohol and Drug Abuse Patient Records regulations: The Federal rules restrict any use of the information to criminally investigate or prosecute any alcohol or drug abuse patient.[facility] [place]In the event this information is protected by the Federal Confidentiality of Alcohol and Drug Abuse Patient Records regulations: The Federal rules restrict any use of the information to criminally investigate or prosecute any alcohol or drug abuse patient.[facility] [place]In the event this information is protected by the Federal Confidentiality of Alcohol and Drug Abuse Patient Records regulations: The Federal rules restrict any use of the information to criminally investigate or prosecute any alcohol or drug abuse patient.[facility] [place]In the event this information is protected by the Federal Confidentiality of Alcohol and Drug Abuse Patient Records regulations: The Federal rules restrict any use of the information to criminally investigate or prosecute any alcohol or drug abuse patient.[facility] [place]In the event this information is protected by the Federal Confidentiality of Alcohol and Drug Abuse Patient Records regulations: The Federal rules restrict any use of the information to criminally investigate or prosecute any alcohol or drug abuse patient.[facility] [place]In the event this information is protected by the Federal Confidentiality of Alcohol and Drug Abuse Patient Records regulations: The Federal rules restrict any use of the information to criminally investigate or prosecute any alcohol or drug abuse patient.[facility] [place]In the event this information is protected by the Federal Confidentiality of Alcohol and Drug Abuse Patient Records regulations: The Federal rules restrict any use of the information to criminally investigate or prosecute any alcohol or drug abuse patient.[facility] [place]In the event this information is protected by the Federal Confidentiality of Alcohol and Drug Abuse Patient Records regulations: The Federal rules restrict any use of the information to criminally investigate or prosecute any alcohol or drug abuse patient.[facility] [place]In the event this information is protected by the Federal Confidentiality of Alcohol and Drug Abuse Patient Records regulations: The Federal rules restrict any use of the information to criminally investigate or prosecute any alcohol or drug abuse patient.[facility] [place]In the event this information is protected by the Federal Confidentiality of Alcohol and Drug Abuse Patient Records regulations: The Federal rules restrict any use of the information to criminally investigate or prosecute any alcohol or drug abuse patient.[facility] ColumbusIn the event this information is protected by the Federal Confidentiality of Alcohol and Drug Abuse Patient Records regulations: The Federal rules restrict any use of the information to criminally investigate or prosecute any alcohol or drug abuse patient.[facility] ColumbusIn the event this information is protected by the Federal Confidentiality of Alcohol and Drug Abuse Patient Records regulations: The Federal rules restrict any use of the information to criminally investigate or prosecute any alcohol or drug abuse patient.[facility] ColumbusIn the event this information is protected by the Federal Confidentiality of Alcohol and Drug Abuse Patient Records regulations: The Federal rules restrict any use of the information to criminally investigate or prosecute any alcohol or drug abuse patient.[facility] ColumbusIn the event this information is protected by the Federal Confidentiality of Alcohol and Drug Abuse Patient Records regulations: The Federal rules restrict any use of the information to criminally investigate or prosecute any alcohol or drug abuse patient.[facility] ColumbusIn the event this information is protected by the Federal Confidentiality of Alcohol and Drug Abuse Patient Records regulations: The Federal rules restrict any use of the information to criminally investigate or prosecute any alcohol or drug abuse patient.[facility] ColumbusIn the event this information is protected by the Federal Confidentiality of Alcohol and Drug Abuse Patient Records regulations: The Federal rules restrict any use of the information to criminally investigate or prosecute any alcohol or drug abuse patient.[facility] ColumbusIn the event this information is protected by the Federal Confidentiality of Alcohol and Drug Abuse Patient Records regulations: The Federal rules restrict any use of the information to criminally investigate or prosecute any alcohol or drug abuse patient.[facility] ColumbusIn the event this information is protected by the Federal Confidentiality of Alcohol and Drug Abuse Patient Records regulations: The Federal rules restrict any use of the information to criminally investigate or prosecute any alcohol or drug abuse patient.[facility] ColumbusIn the event this information is protected by the Federal Confidentiality of Alcohol and Drug Abuse Patient Records regulations: The Federal rules restrict any use of the information to criminally investigate or prosecute any alcohol or drug abuse patient.[facility] ColumbusIn the event this information is protected by the Federal Confidentiality of Alcohol and Drug Abuse Patient Records regulations: The Federal rules restrict any use of the information to criminally investigate or prosecute any alcohol or drug abuse patient.[facility] ColumbusIn the event this information is protected by the Federal Confidentiality of Alcohol and Drug Abuse Patient Records regulations: The Federal rules restrict any use of the information to criminally investigate or prosecute any alcohol or drug abuse patient.[facility] ColumbusIn the event this information is protected by the Federal Confidentiality of Alcohol and Drug Abuse Patient Records regulations: The Federal rules restrict any use of the information to criminally investigate or prosecute any alcohol or drug abuse patient.[facility] ColumbusIn the event this information is protected by the Federal Confidentiality of Alcohol and Drug Abuse Patient Records regulations: The Federal rules restrict any use of the information to criminally investigate or prosecute any alcohol or drug abuse patient.[facility] ColumbusIn the event this information is protected by the Federal Confidentiality of Alcohol and Drug Abuse Patient Records regulations: The Federal rules restrict any use of the information to criminally investigate or prosecute any alcohol or drug abuse patient.[facility] ColumbusIn the event this information is protected by the Federal Confidentiality of Alcohol and Drug Abuse Patient Records regulations: The Federal rules restrict any use of the information to criminally investigate or prosecute any alcohol or drug abuse patient.[facility] ColumbusIn the event this information is protected by the Federal Confidentiality of Alcohol and Drug Abuse Patient Records regulations: The Federal rules restrict any use of the information to criminally investigate or prosecute any alcohol or drug abuse patient.[facility] ColumbusIn the event this information is protected by the Federal Confidentiality of Alcohol and Drug Abuse Patient Records regulations: The Federal rules restrict any use of the information to criminally investigate or prosecute any alcohol or drug abuse patient.[facility] ColumbusIn the event this information is protected by the Federal Confidentiality of Alcohol and Drug Abuse Patient Records regulations: The Federal rules restrict any use of the information to criminally investigate or prosecute any alcohol or drug abuse patient.[facility] ColumbusIn the event this information is protected by the Federal Confidentiality of Alcohol and Drug Abuse Patient Records regulations: The Federal rules restrict any use of the information to criminally investigate or prosecute any alcohol or drug abuse patient.[facility] ColumbusIn the event this information is protected by the Federal Confidentiality of Alcohol and Drug Abuse Patient Records regulations: The Federal rules restrict any use of the information to criminally investigate or prosecute any alcohol or drug abuse patient.[facility] ColumbusIn the event this information is protected by the Federal Confidentiality of Alcohol and Drug Abuse Patient Records regulations: The Federal rules restrict any use of the information to criminally investigate or prosecute any alcohol or drug abuse patient.[facility] ColumbusIn the event this information is protected by the Federal Confidentiality of Alcohol and Drug Abuse Patient Records regulations: The Federal rules restrict any use of the information to criminally investigate or prosecute any alcohol or drug abuse patient.[facility] ColumbusIn the event this information is protected by the Federal Confidentiality of Alcohol and Drug Abuse Patient Records regulations: The Federal rules restrict any use of the information to criminally investigate or prosecute any alcohol or drug abuse patient.[facility] ColumbusIn the event this information is protected by the Federal Confidentiality of Alcohol and Drug Abuse Patient Records regulations: The Federal rules restrict any use of the information to criminally investigate or prosecute any alcohol or drug abuse patient.[facility] ColumbusIn the event this information is protected by the Federal Confidentiality of Alcohol and Drug Abuse Patient Records regulations: The Federal rules restrict any use of the information to criminally investigate or prosecute any alcohol or drug abuse patient.[facility] ColumbusIn the event this information is protected by the Federal Confidentiality of Alcohol and Drug Abuse Patient Records regulations: The Federal rules restrict any use of the information to criminally investigate or prosecute any alcohol or drug abuse patient.[facility] ColumbusIn the event this information is protected by the Federal Confidentiality of Alcohol and Drug Abuse Patient Records regulations: The Federal rules restrict any use of the information to criminally investigate or prosecute any alcohol or drug abuse patient.[facility] ColumbusIn the event this information is protected by the Federal Confidentiality of Alcohol and Drug Abuse Patient Records regulations: The Federal rules restrict any use of the information to criminally investigate or prosecute any alcohol or drug abuse patient.[facility] ColumbusIn the event this information is protected by the Federal Confidentiality of Alcohol and Drug Abuse Patient Records regulations: The Federal rules restrict any use of the information to criminally investigate or prosecute any alcohol or drug abuse patient.[facility] ColumbusIn the event this information is protected by the Federal Confidentiality of Alcohol and Drug Abuse Patient Records regulations: The Federal rules restrict any use of the information to criminally investigate or prosecute any alcohol or drug abuse patient.[facility] ColumbusIn the event this information is protected by the Federal Confidentiality of Alcohol and Drug Abuse Patient Records regulations: The Federal rules restrict any use of the information to criminally investigate or prosecute any alcohol or drug abuse patient.[facility] ColumbusIn the event this information is protected by the Federal Confidentiality of Alcohol and Drug Abuse Patient Records regulations: The Federal rules restrict any use of the information to criminally investigate or prosecute any alcohol or drug abuse patient.[facility] ColumbusIn the event this information is protected by the Federal Confidentiality of Alcohol and Drug Abuse Patient Records regulations: The Federal rules restrict any use of the information to criminally investigate or prosecute any alcohol or drug abuse patient.[facility] ColumbusIn the event this information is protected by the Federal Confidentiality of Alcohol and Drug Abuse Patient Records regulations: The Federal rules restrict any use of the information to criminally investigate or prosecute any alcohol or drug abuse patient.[facility] ColumbusIn the event this information is protected by the Federal Confidentiality of Alcohol and Drug Abuse Patient Records regulations: The Federal rules restrict any use of the information to criminally investigate or prosecute any alcohol or drug abuse patient.[facility] ColumbusIn the event this information is protected by the Federal Confidentiality of Alcohol and Drug Abuse Patient Records regulations: The Federal rules restrict any use of the information to criminally investigate or prosecute any alcohol or drug abuse patient.[facility] ColumbusIn the event this information is protected by the Federal Confidentiality of Alcohol and Drug Abuse Patient Records regulations: The Federal rules restrict any use of the information to criminally investigate or prosecute any alcohol or drug abuse patient.[facility] ColumbusIn the event this information is protected by the Federal Confidentiality of Alcohol and Drug Abuse Patient Records regulations: The Federal rules restrict any use of the information to criminally investigate or prosecute any alcohol or drug abuse patient.[facility] ColumbusIn the event this information is protected by the Federal Confidentiality of Alcohol and Drug Abuse Patient Records regulations: The Federal rules restrict any use of the information to criminally investigate or prosecute any alcohol or drug abuse patient.[facility] ColumbusIn the event this information is protected by the Federal Confidentiality of Alcohol and Drug Abuse Patient Records regulations: The Federal rules restrict any use of the information to criminally investigate or prosecute any alcohol or drug abuse patient.[facility] ColumbusIn the event this information is protected by the Federal Confidentiality of Alcohol and Drug Abuse Patient Records regulations: The Federal rules restrict any use of the information to criminally investigate or prosecute any alcohol or drug abuse patient.[facility] ColumbusIn the event this information is protected by the Federal Confidentiality of Alcohol and Drug Abuse Patient Records regulations: The Federal rules restrict any use of the information to criminally investigate or prosecute any alcohol or drug abuse patient.[facility] ColumbusIn the event this information is protected by the Federal Confidentiality of Alcohol and Drug Abuse Patient Records regulations: The Federal rules restrict any use of the information to criminally investigate or prosecute any alcohol or drug abuse patient.[facility] ColumbusIn the event this information is protected by the Federal Confidentiality of Alcohol and Drug Abuse Patient Records regulations: The Federal rules restrict any use of the information to criminally investigate or prosecute any alcohol or drug abuse patient.[facility] Reason for Visit (unrecogniz ed section and content) Reason Comments New Patient Specialty Diagnoses / Procedures Referred By Contfrancia t Referred To Contact Oncology Diagnoses Malignant neoplasm of ascending colon (HCC) Procedures CONSULT TO ONCOLOGY OFFICE/OUTPATIENT [facility] 60 [place] [address] [place] [address] [place] [address] [place] [address] Referral ID Status Reason Start Date Expiration Date V isits Requested Visits Authorized [id number] Closed PCP Requested Referral 01/18/2024 01/17/2025 1 1 Specialty Diagnoses / Procedures Referred By Contac t Referred To Contact Pulmonary Disease Diagnoses Lung nodule Procedures CONSULT TO LUNG NODULE CLINIC OFFICE/OUTPATIENT [facility] 60 MINUTES Amish Castorena, LETI.PROCESS DESCRIPTION WRITER [address] [place] [id number] Referral ID Status Reason Start Date Expiration Date V isits Requested Visits Authorized [id number] Closed PCP Requested Referral 12/04/2023 12/03/2024 1 1 Reason Comments Epilepsy Follow Up Reason Comments Outside Labs Results [facility] Reason Comments Seizures Reason [...] (HCC) Procedures PROVIDER ORDERED FOLLOW UP OFFICE/OUTPATIENT [facility] 60 MINUTES Ashly Lange, DEPENDENCY DIRECTOR.PROCESS DESCRIPTION WRITER [address] [place] [address] [facility] [place] [address] [place] [address] Referral ID Status Reason Start Date Expiration Date Visits Requested Visits Authorized [id number] Authorized Financial Clearance Required - Self Pay Patient Cleared - CCN Request Cancelled - Pre Qualified for HCAP/501R/FA or Patient Payment Collected Patient Cleared - Qualified HCAP/501/FA 10/17/2023 01/15/2024 99 99 Reason Comments Appointment Reason Comments Consult Perforated appendix Specialty Diagnoses / Procedures Referred By Contac t Referred To Contact General Surgery Diagnoses Perforated appendix Procedures CONSULT TO GENERAL SURGERY OFFICE/OUTPATIENT [facility] 60 MINUTES Kailyn Coleman MD [address] [place] [address] Referral ID Status Reason Start Date Expiration Date V isits Requested Visits Authorized [id number] Closed PCP Requested Referral 10/11/2023 10/10/2024 1 1 Reason Comments Anesthesia Consult Reason Comments Patient Question Returning Patient's Call Implementation Architect - Other Reason Comments Home Care CONFIRMATION CALL Reason Comments Home Care Md Reason Comments Nausea vomitting Implementation Architect - Other Returning Patient's Call Reason Comments Home Care Spoke with patients friend and SOC confirmed for 01/11/24 Reason Comments Home Care Medication interacti on Reason Comments Patient Update Reason Comments New Patient Focal epilepsy Specialty Diagnoses / Procedures Referred By Contac t Referred To Contact Neurology Diagnoses Focal epilepsy (HCC) Procedures CONSULT TO NEUROLOGY OFFICE/OUTPATIENT [facility] 60 MINUTES Cristobal Junior, DEPENDENCY DIRECTOR.PROCESS DESCRIPTION WRITER [address] [place] [address] Referral ID Status Reason Start Date Expiration Date V isits Requested Visits Authorized [id number] Closed PCP Requested Referral 10/23/2023 10/22/2024 1 1 Reason Comments Abdominal Mass Reason Comments Home Care Unmade PT visit Reason Comments Radiology CT Specialty Diagnoses / Procedures Referred By Contac t Referred To Contact CT IMAGING Diagnoses Intra-abdominal and pelvic swelling, mass and lump, unspecified site Procedures CT CHEST WO IVCON DIAGNOSTIC COMPUTED TOMOGRAPHY THORAX W/O CNTRST Tessa Spring MD [address] [place] [address] [address] [facility] [place] [address] Referral ID Status Reason Start Date Expiration Date V isits Requested Visits Authorized [id number] Closed Auto-Generate d Referral 01/18/2024 02/16/2025 1 [...] Coordination Specialty Diagnoses / Procedures [facility] Diagnoses Right lower quadrant abdominal pain Procedures CT ABD/PEL W IVCON CT ABD & PELVIS W/CONTRAST Tessa Spring MD [address] [facility] [place] [address] [facility] [place] [address] Referral ID Status Reason Start Date Expiration Date V isits Requested Visits Authorized [id number] Closed Auto-Generate d Referral 03/07/2024 04/06/2025 1 1 Specialty Diagnoses / Procedures [facility] To Contact CT [facility] Diagnoses Right lower quadrant abdominal pain Procedures CT ABD/PEL W IVCON CT ABD & PELVIS W/CONTRAST Tessa Spring MD [address] [facility] [place] [address] [facility] [place] [address] Reason Onset Date Comments SPP Oral Oncology/hematology [...] capecitabine Specialty Diagnoses / Procedures [facility] Ref[facility] To Contact CT [facility] Diagnoses Lung nodules Procedures CT CHEST WO IVCON DIAGNOSTIC COMPUTED TOMOGRAPHY THORAX W/O CNTRST Fe Edmond APRN.PROCESS DESCRIPTION WRITER [address] [place] [address] Phone: tel: fax: [place] [phone] Referral ID Status Reason Start Date Expiration Date V isits Requested Visits Authorized [id number] Closed Auto-Generate d Referral 04/27/2024 04/18/2025 1 [...] - Medication Refill 08/07/2024 capecitabine Reason Comments Implementation Architect - Hospital Follow Up Reason Comments Home Care MD to Follow Reason Comments Home Care CONFIRMATION CALL Reason Comments [address] palliative care f/u Reason Comments Post Op Implementation Architect - Other Returning Patient's Call Reason Comments Post Op Follow Up 08/28/24 ex lap, mass resection Reason Comments Symptom Management Reason Comments Implementation Architect - Other Introduction Reason Comments AVS 09/25 Reason Comments Art Therapy Referral Reason Comments Patient Question Implementation Architect - Other Returning Patient's Call Reason Comments Blood Draw (CVAD) Reason Comments Chemotherapy Treatment Specialty Diagnoses / Procedures Referred By Allen keen Referred To Contact Diagnoses Adenocarcinoma of cecum (HCC) Jimmie Poole MD [address] [place] [address] Phone: tel: Hematology/Oncology [address] [place] [address] Phone: tel: fax: Referral ID Status Reason Start Date Expiration Date V isits Requested Visits Authorized [id number] Authorized 10/09/2024 01/07/2025 99 99 Reason Comments Non-Chemotherapy Treatment Reason Comments Implementation Architect - Other Returning Patient's Call Reason Onset Date Comments Refill Request 11/10/2024 Reason Comments Care Coordination Follow up Call Reason Comments [id number] Pallative Medicine Reason Comments Critical Care Transport Reason Onset Date Comments Refill Request 11/25/2024 Reason Comments Care Coordination Diarrhea Reason Comments Care Coordination patient update Reason Comments Established Patient Reason Comments Nausea Anorexia Pain Care Teams (unrecognized sec tion and content) Airport Operations Specialist Relationship Specialty Start Date End Date Mary Moss PCP - General Family Practice 05/28/18 Adrian Wallace, DO Referring Neurology 11/13/18 Airport Operations Specialist Relationship Specialty Start Date End Date Mary Moss PCP - General Family Practice 05/28/18 Adrian Wallace DO Referring Neurology 11/13/18 Airport Operations Specialist Relationship Specialty Start Date End Date Mary Moss PCP - General Family Practice 05/28/18 Adrian Wallace DO Referring Neurology 11/13/18 Airport Operations Specialist Relationship Specialty Start Date End Date Mary Moss PCP - General Family Medicine 05/28/18 Adrian Wallace DO Referring Neurology 11/13/18 Airport Operations Specialist Relationship Specialty Start Date End Date Mary Moss PCP - General Family Medicine 05/28/18 Adrian Wallace DO Referring Neurology 11/13/18 Airport Operations Specialist Relationship Specialty Start Date End Date Mary Moss PCP - General Family Medicine 05/28/18 Adrian Wallace DO Referring Neurology 11/13/18 Team Status: Active Member Role Status Dates [facility] Family Provider Active [facility] Primary Care Provider A ctive Team Status: Inactive Member Role Status Dates [facility] Primary Care Provider A ctive CHRISTIE HYLTON MD Attending Provider, Referring Prov ider Active [employer] Operations Specialist Relationship Specialty Start Date End Date Mary Moss PCP - General Family Medicine 05/28/18 Adrian Wallace DO Referring Neurology 11/13/18 Airport Operations Specialist Relationship Specialty Start Date End Date Mary Moss PCP - General Family Medicine 05/28/18 Adrian Wallace DO Referring Neurology 11/13/18 Airport Operations Specialist Relationship Specialty Start Date End Date Mary Moss PCP - General Family Medicine 05/28/18 Adrian Wallace DO Referring Neurology 11/13/18 Airport Operations Specialist Relationship Specialty Start Date End Date Mary Moss PCP - General Family Medicine 05/28/18 Adrian Wallace DO Referring Neurology 11/13/18 Airport Operations Specialist Relationship Specialty Start Date End Date Mary Moss PCP - General Family Medicine 05/28/18 Adrian Wallace DO Referring Neurology 11/13/18 Airport Operations Specialist Relationship Specialty Start Date End Date Mary Moss PCP - General Family Medicine 05/28/18 Adrian Wallace DO Referring Neurology 11/13/18 Airport Operations Specialist Relationship Specialty Start Date End Date Mary Moss PCP - General Family Medicine 05/28/18 Adrian Wallace DO Referring Neurology 11/13/18 Airport Operations Specialist Relationship Specialty Start Date End Date Mary Moss PCP - General Family Medicine 05/28/18 Adrian Wallace DO Referring Neurology 11/13/18 Airport Operations Specialist Relationship Specialty Start Date End Date Mary Moss PCP - General Family Medicine 05/28/18 Adrian Wallace DO Referring Neurology 11/13/18 Airport Operations Specialist Relationship Specialty Start Date End Date Mary Moss PCP - General Family Medicine 05/28/18 Adrian Wallace DO Referring Neurology 11/13/18 Airport Operations Specialist Relationship Specialty Start Date End Date Mary Moss PCP - General Family Medicine 05/28/18 Adrian Wallace DO Referring Neurology 11/13/18 Airport Operations Specialist Relationship Specialty Start Date End Date Mary Moss PCP - General Family Medicine 05/28/18 Adrian Wallace DO Referring Neurology 11/13/18 Airport Operations Specialist Relationship Specialty Start Date End Date Mary Moss PCP - General Family Medicine 05/28/18 Adrian Wallace DO Referring Neurology 11/13/18 Airport Operations Specialist Relationship Specialty Start Date End Date Mary Moss PCP - General Family Medicine 05/28/18 Adrian Wallace DO Referring Neurology 11/13/18 Airport Operations Specialist Relationship Specialty Start Date End Date Mary Moss PCP - General Family Medicine 05/28/18 Adrian Wallace DO Referring Neurology 11/13/18 Airport Operations Specialist Relationship Specialty Start Date End Date Mary Moss PCP - General Family Medicine 05/28/18 Adrian Wallace DO Referring Neurology 11/13/18 Airport Operations Specialist Relationship Specialty Start Date End Date Mary Moss PCP - General Family Medicine 05/28/18 Adrian Wallace DO Referring Neurology 11/13/18 Airport Operations Specialist Relationship Specialty Start Date End Date Mary Moss PCP - General Family Medicine 05/28/18 Adrian Wallace DO Referring Neurology 11/13/18 Airport Operations Specialist Relationship Specialty Start Date End Date Mary Moss PCP - General Family Medicine 05/28/18 Adrian Wallace DO Referring Neurology 11/13/18 Airport Operations Specialist Relationship Specialty Start Date End Date Mary Moss CNP PCP - General Family Medicine 05/28/18 Adrian Wallace DO Referring Neurology 11/13/18 Airport Operations Specialist Relationship Specialty Start Date End Date Mary Moss CNP PCP - General Family Medicine 05/28/18 Adrian Wallace DO Referring Neurology 11/13/18 Airport Operations Specialist Relationship Specialty Start Date End Date Mary Moss CNP PCP - General Family Medicine 05/28/18 Adrian Wallace DO Referring Neurology 11/13/18 Airport Operations Specialist Relationship Specialty Start Date End Date Mary Moss CNP PCP - General Family Medicine 05/28/18 Adrian Wallace DO Referring Neurology 11/13/18 Airport Operations Specialist Relationship Specialty Start Date End Date Mary Moss CNP PCP - General Family Medicine 05/28/18 Adrian Wallace DO Referring Neurology 11/13/18 [place] [address] [place] [address] Referring General Surgery 01/09/24 Christie Saenz NP [address] [place] [address] Home Care Provider Family Medicine 01/09/24 Joe Williamson, REAL [address] [place] [address] Scrapper Post Acute Care 01/09/24 Airport Operations Specialist Relationship Specialty Start Date End Date Mary Moss CNP PCP - General Family Medicine 05/28/18 Adrian Wallace DO Referring Neurology 11/13/18 Braxton Knowles MD [address] [place], [place] [phone] Referring General Surgery 01/09/24 Christie Saenz NP [address] [place], [place] 014451 Home Care Provider Family Medicine 01/09/24 Joe Williamson RN [address] [place], [place] [phone] Scrapper Post Acute Care 01/09/24 Airport Operations Specialist Relationship Specialty Start Date End Date Mary Moss CNP PCP - General Family Medicine 05/28/18 Adrian Wallace DO Referring Neurology 11/13/18 Braxton Knowles MD [address] [place] [address] Referring General Surgery 01/09/24 Christie Saenz NP [address] [place] [address] Home Care Provider Family Medicine 01/09/24 Joe Williamson RN [address] [place] [address] Scrapper Post Acute Care 01/09/24 Airport Operations Specialist Relationship Specialty Start Date End Date Mary Moss CNP PCP - General Family Medicine 05/28/18 Adrian Wallace DO Referring Neurology 11/13/18 Braxton Knowles MD [facility] [place], [place] [phone] Referring General Surgery 01/09/24 Christie Saenz NP [address] [place] [address] Home Care Provider Family Medicine 01/09/24 Joe Williamson RN [address] [place] [address] Scrapper Post Acute Care 01/09/24 Airport Operations Specialist Relationship Specialty Start Date End Date Mary Moss CNP PCP - General Family Medicine 05/28/18 Adrian Wallace DO Referring Neurology 11/13/18 Braxton Knowles MD [facility] [place] [address] Referring General Surgery 01/09/24 Christie Saenz NP [address] [place] [address] Home Care Provider Family Medicine 01/09/24 Joe Williamson RN [address] [place] [address] Scrapper Post Acute Care 01/09/24 Airport Operations Specialist Relationship Specialty Start Date End Date Mary Moss CNP PCP - General Family Medicine 05/28/18 Adrian Wallace DO Referring Neurology 11/13/18 Braxton Knowles MD [address] [place], [place] [phone] Referring General Surgery 01/09/24 Christie Saenz NP [address] [place] [address] Home Care Provider Family Medicine 01/09/24 Joe Williamson, REAL [address] [place], [place] [phone] Scrapper Post Acute Care 01/09/24 Airport Operations Specialist Relationship Specialty Start Date End Date Mary Moss CNP PCP - General Family Medicine 05/28/18 Adrian Wallace DO Referring Neurology 11/13/18 Braxton Knowles MD [address] [place], [place] [phone] Referring General Surgery 01/09/24 Christie Saenz NP [address] [place], [place] 280041 Home Care Provider Family Medicine 01/09/24 Joe Williamson RN [address] [place], [place] [phone] Scrapper Post Acute Care 01/09/24 Airport Operations Specialist Relationship Specialty Start Date End Date Mary Moss CNP PCP - General Family Medicine 05/28/18 Adrian Wallace DO Referring Neurology 11/13/18 Braxton Knowles MD [address] [place], [place] [phone] Referring General Surgery 01/09/24 Christie Saenz NP [address] [place], [place] 865631 Home Care Provider Family Medicine 01/09/24 Joe Williamson RN [address] [place], [place] [phone] Scrapper Post Acute Care 01/09/24 Airport Operations Specialist Relationship Specialty Start Date End Date Mary Moss CNP PCP - General Family Medicine 05/28/18 Adrian Wallace DO Referring Neurology 11/13/18 Braxton Knowles MD [address] [place] [address] Referring General Surgery 01/09/24 Christie Saenz NP [address] [place], [place] [phone] Home Care Provider Family Medicine 01/09/24 Joe Williamson RN [address] [place], [place] [phone] Scrapper Post Acute Care 01/09/24 Airport Operations Specialist Relationship Specialty Start Date End Date Mary Moss CNP PCP - General Family Medicine 05/28/18 Adrian Wallace DO Referring Neurology 11/13/18 Braxton Knowles MD [address] [place] [address] Referring General Surgery 01/09/24 Christie Saenz NP 9 [place] [address] Home Care Provider Family Medicine 01/09/24 Joe Williamson RN [address] [place], [place] [phone] Scrapper Post Acute Care 01/09/24 Airport Operations Specialist Relationship Specialty Start Date End Date Mary Moss CNP PCP - General Family Medicine 05/28/18 Adrian Wallace DO Referring Neurology 11/13/18 Airport Operations Specialist Relationship Specialty Start Date End Date Mary Moss CNP PCP - General Family Medicine 05/28/18 Adrian Wallace DO Referring Neurology 11/13/18 [place] [address] [place], [place] [phone] Referring General Surgery 01/09/24 Christie Saenz NP [address] [place], [place] [phone] Home Care Provider Family Medicine 01/09/24 Joe Williamson RN [address] [place], [place] [phone] Scrapper Post Acute Care 01/09/24 Airport Operations Specialist Relationship Specialty Start Date End Date Mary Moss CNP PCP - General Family Medicine 05/28/18 Adrian Wallace DO Referring Neurology 11/13/18 Braxton Knowles MD [facility] [place] [phone] Referring General Surgery 01/09/24 Christie Saenz NP [address] [place] [address] Home Care Provider Family [facility] 01/09/24 Joe Williamson RN [address] [place], [place] [phone] Scrapper Post Acute Care 01/09/24 Airport Operations Specialist Relationship Specialty Start Date End Date Mary Moss CNP PCP - General Family Medicine 05/28/18 Adrian Wallace DO Referring Neurology 11/13/18 Braxton Knowles MD [address] [place], [place] [phone] Referring General Surgery 01/09/24 Christie Saenz NP [address] [place], [place] 122231 Home Care Provider Family Medicine 01/09/24 Joe Williamson RN [address] [place], [place] [phone] Scrapper Post Acute Care 01/09/24 Airport Operations Specialist Relationship Specialty Start Date End Date Mary Moss CNP PCP - General Family Medicine 05/28/18 Adrian Wallace DO Referring Neurology 11/13/18 Braxton Knowles MD [address] [place] [phone] Referring General Surgery 01/09/24 Christie Saenz NP [address] [place], [place] [phone] Home Care Provider Family Medicine 01/09/24 Joe Williamson RN [address] [place], [place] [phone] Scrapper Post Acute Care 01/09/24 Airport Operations Specialist Relationship Specialty Start Date End Date Mary Moss CNP PCP - General Family Medicine 05/28/18 Adrian Wallace DO Referring Neurology 11/13/18 Braxton Knowles MD [facility] [place] [phone] Referring General Surgery 01/09/24 Christie Saenz NP [address] [place], [place] [phone] Home Care Provider Family Medicine 01/09/24 Joe Williamson RN [address] [place], [place] [phone] Scrapper Post Acute Care 01/09/24 Tessa Spring MD [address] [place], [place] [phone] General Surgery 02/01/24 Airport Operations Specialist Relationship Specialty Start Date End Date Mary Moss CNP PCP - General Family Medicine 05/28/18 Adrian Wallace DO Referring Neurology 11/13/18 Braxton Knowles MD [address] [place] [address] Referring General Surgery 01/09/24 Christie Saenz NP [address] [place] [address] Home Care Provider Family Medicine 01/09/24 Joe Williamson, REAL [address] [place], [place] [phone] Scrapper Post Acute Care 01/09/24 Tessa Spring MD [address] [place] [address] General Surgery 02/01/24 Airport Operations Specialist Relationship Specialty Start Date End Date Mary Moss CNP PCP - General Family Medicine 05/28/18 Adrina Wallace DO Referring Neurology 11/13/18 Braxton Knowles MD [address] [place] [address] Referring General Surgery 01/09/24 Christie Saenz NP [address] [place] [address] Home Care Provider Family Medicine 01/09/24 Joe Williamson, REAL [address] [place], [place] [phone] Scrapper Post Acute Care 01/09/24 Tessa Spring MD [address] [place], [place] [phone] General Surgery 02/01/24 Airport Operations Specialist Relationship Specialty Start Date End Date Mary Moss CNP PCP - General Family Medicine 05/28/18 Adrian Wallace DO Referring Neurology 11/13/18 Braxton Knowles MD [address] [place], [place] [phone] Referring General Surgery 01/09/24 Christie Saenz NP [address] [place] [address] Home Care Provider Family Medicine 01/09/24 Joe Williamson RN [address] [place] [address] Scrapper Post Acute Care 01/09/24 Tessa Spring MD [address] [place], [place] [phone] General Surgery 02/01/24 Airport Operations Specialist Relationship Specialty Start Date End Date Mary Moss CNP PCP - General Family Medicine 05/28/18 Adrian Wallace DO Referring Neurology 11/13/18 Braxton Knowles MD [address] [place] [address] Referring General Surgery 01/09/24 Christie Saenz NP [address] [place] [address] 295501 Home Care Provider Family Medicine 01/09/24 Joe Williamson, RN [address] [place] [address] Scrapper Post Acute Care 01/09/24 Tessa Spring MD [address] [place] [address] General Surgery 02/01/24 Airport Operations Specialist Relationship Specialty Start Date End Date Mary Moss CNP PCP - General Family Medicine 05/28/18 Adrian Wallace DO Referring Neurology 11/13/18 Braxton Knowles MD [address] [place] [address] Referring General Surgery 01/09/24 [place] [address] [place] [address] [phone] Home Care Provider Family Medicine 01/09/24 Tessa Spring MD [address] [place] [address] General Surgery 02/01/24 Airport Operations Specialist Relationship Specialty Start Date End Date Mary Moss CNP PCP - General Family Medicine 05/28/18 Adrian Wallace DO Referring Neurology 11/13/18 Braxton Knowles MD [address] [place] [address] Referring General Surgery 01/09/24 Christie Saenz NP [address] [place] [address] Home Care Provider Family Medicine 01/09/24 Tessa Spring MD [address] [place] [address] General Surgery 02/01/24 Airport Operations Specialist Relationship Specialty Start Date End Date Mary Moss CNP PCP - General Family Medicine 05/28/18 Adrian Wallace DO Referring Neurology 11/13/18 Braxton Konwles MD [address] [place] [phone] Referring General Surgery 01/09/24 Christie Saenz NP [address] [place] [address] Home Care Provider Family Medicine 01/09/24 Tessa Spring MD [address] [place] [phone] General Surgery 02/01/24 Airport Operations Specialist Relationship Specialty Start Date End Date Mary Moss CNP PCP - General Family Medicine 05/28/18 Adrian Wallace DO Referring Neurology 11/13/18 Braxton Knowles MD [address] [place] [address] Referring General Surgery 01/09/24 Christie Saenz NP [address] [place] [address] 251091 Home Care Provider Family Medicine 01/09/24 Tessa Spring MD [address] [place] [address] General Surgery 02/01/24 Airport Operations Specialist Relationship Specialty Start Date End Date Mary Moss CNP PCP - General Family Medicine 05/28/18 Adrian Wallace DO Referring Neurology 11/13/18 Braxton Knowles MD [address] [place] [address] Referring General Surgery 01/09/24 Christie Saenz NP [address] [place] [address] 122261 Home Care Provider Family Medicine 01/09/24 Tessa Spring MD [address] [place] [address] General Surgery 02/01/24 Amber Valverde LISW [address] [place] [address] Cracker Dough Mixer Hematology/Oncology 02/19/24 Airport Operations Specialist Relationship Specialty Start Date End Date Mary Moss CNP PCP - General Family Medicine 05/28/18 Adrian Wallace DO Referring Neurology 11/13/18 Braxton Knowles MD [address] [place] [address] Referring General Surgery 01/09/24 Christie Saenz NP [address]39 [facility], [place] 088581 Home Care Provider Family Medicine 01/09/24 Tessa Spring MD [address] [place] [address] General Surgery 02/01/24 Amber Valverde LISW [address] [place] [address] Cracker Dough Mixer Hematology/Oncology 02/19/24 Jimmie Poole MD [address] [place] [address] Hematology/Oncology 02/21/24 Kate Castillo, REAL [address] [place] [address] Specialty Implementation Architect Hematology/Oncology 02/21/24 Airport Operations Specialist Relationship Specialty Start Date End Date Mary Moss CNP PCP - General Family Medicine 05/28/18 Adrian Wallace DO Referring Neurology 11/13/18 Braxton Knowles MD [address] [place] [phone] Referring General Surgery 01/09/24 Christie Saenz NP [address] [place] [address] Home Care Provider Family Medicine 01/09/24 Tessa Spring MD [address] [place] [phone] General Surgery 02/01/24 Amber Valverde LISW [address] [place] [address] Cracker Dough Mixer Hematology/Oncology 02/19/24 Jimmie Poole MD [address] [place] [address] Hematology/Oncology 02/21/24 Kate Castillo, REAL [address] [place] [address] Specialty Implementation Architect Hematology/Oncology 02/21/24 Airport Operations Specialist Relationship Specialty Start Date End Date Mary Moss CNP PCP - General Family Medicine 05/28/18 Adrian Wallace DO Referring Neurology 11/13/18 Braxton Knowles MD [address] [place] [address] Referring General Surgery 01/09/24 Christie Saenz NP [address] [place], [place] 543781 Home Care Provider Family Medicine 01/09/24 [place] [address] [place] [address] General Surgery 02/01/24 Amber Valverde LISW [address] [place] [address] Cracker Dough Mixer Hematology/Oncology 02/19/24 Jimmie Poole MD [address] [place] [address] Hematology/Oncology 02/21/24 Kate Castillo, RN [address] [place] [address] Specialty Implementation Architect Hematology/Oncology 02/21/24 Airport Operations Specialist Relationship Specialty Start Date End Date Mary Moss CNP PCP - General Family Medicine 05/28/18 Adrian Wallace DO Referring Neurology 11/13/18 [place] [address] [place] [address] Referring General Surgery 01/09/24 Christie Saenz NP [address] [place], [place] [phone] Home Care Provider Family Medicine 01/09/24 Joe Williamson, REAL [address] [place] [address] Scrapper Post Acute Care 01/09/24 Airport Operations Specialist Relationship Specialty Start Date End Date Mary Moss CNP PCP - General Family Medicine 05/28/18 Adrian Wallace DO Referring Neurology 11/13/18 Braxton Knowles MD [address] [place] [address] Referring General Surgery 01/09/24 [place] [address] [place] [address] [phone] Home Care Provider Family Medicine 01/09/24 Tessa Spring MD [address] [place] [address] General Surgery 02/01/24 Amber Valverde LISW [address] [place] [address] Cracker Dough Mixer Hematology/Oncology 02/19/24 Jimmie Poole MD [address] [place] [address] Hematology/Oncology 02/21/24 Kate Castillo RN [address] [place] [address] Specialty Implementation Architect Hematology/Oncology 02/21/24 Airport Operations Specialist Relationship Specialty Start Date End Date Mary Moss CNP PCP - General Family Medicine 05/28/18 Adrian Wallace DO Referring Neurology 11/13/18 Braxton Knowles MD [address] [place] [address] Referring General Surgery 01/09/24 Christie Saenz NP [address] [place] [address] Home Care Provider Family Medicine 01/09/24 Tessa Spring MD [address] [place] [address] General Surgery 02/01/24 Amber Valverde LISW [address] [place] [address] Cracker Dough Mixer Hematology/Oncology 02/19/24 Jimmie Poole MD [address] [place] [address] Hematology/Oncology 02/21/24 Kate Castillo, REAL [address] [place] [address] Specialty Implementation Architect Hematology/Oncology 02/21/24 Airport Operations Specialist Relationship Specialty Start Date End Date Mary Moss, LUZMA PCP - General Family Medicine 05/28/18 Adrian Wallace DO Referring Neurology 11/13/18 Braxton Knowles MD [address] [place] [address] Referring General Surgery 01/09/24 Christie Saenz NP [address] [place] [address] Home Care Provider Family Medicine 01/09/24 Tessa Spring MD [address] [place] [address] General Surgery 02/01/24 Amber Valverde LISW [address] [place] [address] Cracker Dough Mixer Hematology/Oncology 02/19/24 Jimmie Poole MD [address] [place] [address] Hematology/Oncology 02/21/24 Kate Castillo RN [address] [place] [address] Specialty Implementation Architect Hematology/Oncology 02/21/24 Airport Operations Specialist Relationship Specialty Start Date End Date Mary Moss CNP PCP - General Family Medicine 05/28/18 Adrian Wallace DO Referring Neurology 11/13/18 Braxton Knowles MD [address] [place] [address] Referring General Surgery 01/09/24 Christie Saenz NP [address] [place] [address] Home Care Provider Family Medicine 01/09/24 Tessa Spring MD [address] [place] [address] General Surgery 02/01/24 Amber Valverde LISW [address] [place] [address] Cracker Dough Mixer Hematology/Oncology 02/19/24 Jimmie Poole MD [address] [place] [address] Hematology/Oncology 02/21/24 Kate Castillo, REAL [address] [place], [place] [id number] Specialty Implementation Architect Hematology/Oncology 02/21/24 Airport Operations Specialist Relationship Specialty Start Date End Date Mary Moss, PROCESS DESCRIPTION WRITER PCP - General Family Medicine 05/28/18 Adrian Wallace DO Referring Neurology 11/13/18 Braxton Knowles MD [address] [place] [address] Referring General Surgery 01/09/24 Christie Saenz NP [address]39 [place] [address] Home Care Provider Family Medicine 01/09/24 Tessa Spring MD [address] [place] [address] General Surgery 02/01/24 Amber Valverde LISW [address] [place] [address] Cracker Dough Mixer Hematology/Oncology 02/19/24 Jimmie Poole MD [address] [place] [address] Hematology/Oncology 02/21/24 Kate Castillo RN [address] [place] [address] Specialty Implementation Architect Hematology/Oncology 02/21/24 Airport Operations Specialist Relationship Specialty Start Date End Date Mary Moss CNP PCP - General Family Medicine 05/28/18 Adrian Wallace DO Referring Neurology 11/13/18 Braxton Knowles MD [address] [place] [address] Referring General Surgery 01/09/24 Christie Saenz NP [address] [facility] [place] [address] Home Care Provider Family Medicine 01/09/24 Tessa Spring MD [address] [place] [address] General Surgery 02/01/24 Amber Valverde LISW [address] [place] [address] Cracker Dough Mixer Hematology/Oncology 02/19/24 Jimmie Poole MD [address] [place] [address] Hematology/Oncology 02/21/24 Kate Castillo, REAL [address] [place] [address] Specialty Implementation Architect Hematology/Oncology 02/21/24 Airport Operations Specialist Relationship Specialty Start Date End Date Mary Moss CNP PCP - General Family Medicine 05/28/18 Adrian Wallace DO Referring Neurology 11/13/18 Braxton Knowles MD [address] [place] [phone] Referring General Surgery 01/09/24 Christie Saenz NP [address] [place], [place] 200441 Home Care Provider Family Medicine 01/09/24 Tessa Spring MD [address] [place] [phone] General Surgery 02/01/24 Amber Valverde LISW [address] [place] [address] Cracker Dough Mixer Hematology/Oncology 02/19/24 Jimmie Poole MD [address] [place] [address] Hematology/Oncology 02/21/24 Kate Castillo RN [address] [place] [address] Specialty Implementation Architect Hematology/Oncology 02/21/24 Airport Operations Specialist Relationship Specialty Start Date End Date Mary Moss CNP PCP - General Family Medicine 05/28/18 Adrian Wallace DO Referring Neurology 11/13/18 [place] [address] [place], [place] [phone] Referring General Surgery 01/09/24 Christie Saenz NP [address] [place] [address] 997481 Home Care Provider Family Medicine 01/09/24 [place] [address] [place], [place] [phone] General Surgery 02/01/24 Amber Valverde LISW [address] [place] [address] Cracker Dough Mixer Hematology/Oncology 02/19/24 Jimmie Poole MD [address] [place] [address] Hematology/Oncology 02/21/24 Kate Castillo, REAL [address] [place], [place] [phone] Specialty Implementation Architect Hematology/Oncology 02/21/24 Airport Operations Specialist Relationship Specialty Start Date End Date Mary Moss, LUZMA PCP - General Family Medicine 05/28/18 Adrian Wallace DO Referring Neurology 11/13/18 [place] [address] [place] [address] Referring General Surgery 01/09/24 Christie Saenz NP [facility]9 [place], [place] [phone] Home Care Provider Family Medicine 01/09/24 Tessa Spring MD [address] [place] [address] General Surgery 02/01/24 Amber Valverde LISW [address] [facility] [place] [address] Cracker Dough Mixer Hematology/Oncology 02/19/24 Jimmie Poole MD [address] [facility] [place] [address] Hematology/Oncology 02/21/24 Kate Castillo, REAL [address] [facility] [address] Specialty Implementation Architect Hematology/Oncology 02/21/24 Airport Operations Specialist Relationship Specialty Start Date End Date Christie Saenz NP [address] [place] [address] PCP - General Family Medicine 04/16/24 Adrian Wallace DO Referring Neurology 11/13/18 Braxton Knowles MD [address] [place] [address] Referring General Surgery 01/09/24 Christie Saenz NP [address] [place] [address] Home Care Provider Family Medicine 01/09/24 Tessa Spring MD [address] [place] [address] General Surgery 02/01/24 Amber Valverde LISW [address] [place] [address] Cracker Dough Mixer Hematology/Oncology 02/19/24 Jimmie Poole MD [address] [place] [address] Hematology/Oncology 02/21/24 Kate Castillo, REAL [address] [place] [address] Specialty Implementation Architect Hematology/Oncology 02/21/24 Airport Operations Specialist Relationship Specialty Start Date End Date Christie Saenz NP [address]39 [place] [address] PCP - General Family Medicine 04/16/24 Adrian Wallace DO Referring Neurology 11/13/18 Braxton Knowles MD [address] [place] [phone] Referring General Surgery 01/09/24 Christie Saenz NP [address] [place] [address] Home Care Provider Family Medicine 01/09/24 Tessa Spring MD [address] [place] [address] General Surgery 02/01/24 Amber Valverde LISW [address] [place] [address] Cracker Dough Mixer Hematology/Oncology 02/19/24 Jimmie Poole MD [address] [place] [address] Hematology/Oncology 02/21/24 Kate Castillo, REAL [address] [place] [address] Specialty Implementation Architect Hematology/Oncology 02/21/24 Airport Operations Specialist Relationship Specialty Start Date End Date Christie Saenz NP [address] [place] [address] PCP - General Family Medicine 04/16/24 Adrian Wallace DO Referring Neurology 11/13/18 Braxton Knowles MD [address] [place] [address] Referring General Surgery 01/09/24 Christie Saenz NP [address] [place] [address] Home Care Provider Family Medicine 01/09/24 Tessa Spring MD [address] [place] [address] General Surgery 02/01/24 Amber Valverde LISW [address] [place] [address] Cracker Dough Mixer Hematology/Oncology 02/19/24 Jimmie Poole MD [address] [place] [address] Hematology/Oncology 02/21/24 Kate Castillo, REAL [address] [place], [place] [id number] Specialty Implementation Architect Hematology/Oncology 02/21/24 Airport Operations Specialist Relationship Specialty Start Date End Date Christie Saenz NP [address] [place] [address] PCP - General Family Medicine 04/16/24 Adrian Wallace DO Referring Neurology 11/13/18 Braxton Knowles MD [address] [place] [address] Referring General Surgery 01/09/24 Christie Saenz NP [address] [place] [address] Home Care Provider Family Medicine 01/09/24 [place] [address] [place] [address] General Surgery 02/01/24 Amber Valverde LISW [address] [place] [address] Cracker Dough Mixer Hematology/Oncology 02/19/24 Jimmie Poole MD [address] [place] [address] Hematology/Oncology 02/21/24 Kate Castillo, REAL [address] [place] [address] Specialty Implementation Architect Hematology/Oncology 02/21/24 Airport Operations Specialist Relationship Specialty Start Date End Date Christie Saenz NP [address] [place] [address] PCP - General Family Medicine 04/16/24 Adrian Wallace DO Referring Neurology 11/13/18 Braxton Knowles MD [address] [place] [address] Referring General Surgery 01/09/24 Christie Saenz NP [address] [place] [address] Home Care Provider Family Medicine 01/09/24 Tessa Spring MD [address]00 [place] [address] General Surgery 02/01/24 Amber Valverde LISW [address] [place] [address] Cracker Dough Mixer Hematology/Oncology 02/19/24 Jimmie Poole MD [address] [place] [address] Hematology/Oncology 02/21/24 Kate Castillo RN [address] [place] [address] Specialty Implementation Architect Hematology/Oncology 02/21/24 Airport Operations Specialist Relationship Specialty Start Date End Date Christie Saenz NP [address] [place] [address] PCP - General Family Medicine 04/16/24 Adrian Wallace DO Referring Neurology 11/13/18 Braxton Knowles MD [address] [place] [address] Referring General Surgery 01/09/24 Christie Saenz NP [address] [place] [address] Home Care Provider Family Medicine 01/09/24 Tessa Spring MD [address] [place] [address] General Surgery 02/01/24 Amber Valverde LISW [address] [place] [address] Cracker Dough Mixer Hematology/Oncology 02/19/24 Jimmie Poole MD [address] [facility] [place] [address] Hematology/Oncology 02/21/24 Kate Castillo, REAL [address] [facility], [place] [address] Specialty Implementation Architect Hematology/Oncology 02/21/24 Airport Operations Specialist Relationship Specialty Start Date End Date Christie Saenz NP [address] [place] [address] PCP - General Family Medicine 04/16/24 Adrian Wallace DO Referring Neurology 11/13/18 Braxton Knowles MD [address] [place] [address] Referring General Surgery 01/09/24 Christie Saenz NP [address] [place] [address] Home Care Provider Family Medicine 01/09/24 Tessa Spring MD [address] [place] [address] General Surgery 02/01/24 Amber Valverde LISW [address] [place] [address] Cracker Dough Mixer Hematology/Oncology 02/19/24 Jimmie Poole MD [address] [place] [address] Hematology/Oncology 02/21/24 Kate Castillo, REAL [address] [place] [address] Specialty Implementation Architect Hematology/Oncology 02/21/24 Airport Operations Specialist Relationship Specialty Start Date End Date Christie Saenz NP [address] [place] [address] PCP - General Family Medicine 04/16/24 Adrian Wallace DO Referring Neurology 11/13/18 Braxton Knowles MD [address] [place] [phone] Referring General Surgery 01/09/24 Christie Saenz NP [address] [place] [address] Home Care Provider Family Medicine 01/09/24 Tessa Spring MD [address] [place] [id number] General Surgery 02/01/24 Amber Valverde LISW [address] [place] [address] Cracker Dough Mixer Hematology/Oncology 02/19/24 Jimmie Poole MD [address] [place] [address] Hematology/Oncology 02/21/24 Kate Castillo, REAL [address] [place] [address] Specialty Implementation Architect Hematology/Oncology 02/21/24 Airport Operations Specialist Relationship Specialty Start Date End Date Mary Moss CNP PCP - General Family Medicine 05/28/18 04/15/24 Christie Saenz NP [address] [place], [place] [address]11 PCP - General Family Medicine 04/16/24 Adrian Wallace DO Referring Neurology 11/13/18 Braxton Knowles MD [address] [place] [address] Referring General Surgery 01/09/24 Christie Saenz NP [facility] [place], [place] 384981 Home Care Provider Family Medicine 01/09/24 Tessa Spring MD [address] [place] [address] General Surgery 02/01/24 Amber Valverde LISW [address] [place] [address] Cracker Dough Mixer Hematology/Oncology 02/19/24 Jimmie Poole MD [address] [facility] [place] [address] Hematology/Oncology 02/21/24 Kate Castillo, REAL [address] [facility] [place] [address] Specialty Implementation Architect Hematology/Oncology 02/21/24 Airport Operations Specialist Relationship Specialty Start Date End Date Christie Saenz NP [address] [place] [address] PCP - General Family Medicine 04/16/24 Adrian Wallace DO Referring Neurology 11/13/18 Braxton Knowles MD [address] [place] [address] Referring General Surgery 01/09/24 Christie Saenz NP [address] [place] [address] Home Care Provider Family Medicine 01/09/24 Tessa Spring MD [address] [place] [address] General Surgery 02/01/24 Amber Valverde LISW [address] [place] [address] Cracker Dough Mixer Hematology/Oncology 02/19/24 Jimmie Poole MD [address] [place] [address] Hematology/Oncology 02/21/24 Kate Castillo, REAL [address] [place] [address] Specialty Implementation Architect Hematology/Oncology 02/21/24 Airport Operations Specialist Relationship Specialty Start Date End Date Christie Saenz NP [address] [place] [address] PCP - General Family Medicine 04/16/24 Adrian Wallace DO Referring Neurology 11/13/18 Braxton Knowles MD [address] [place] [address] Referring General Surgery 01/09/24 Christie Saenz NP [address] [place], [place] 959161 Home Care Provider Family Medicine 01/09/24 [place] [address] [place] [address] General Surgery 02/01/24 Amber Valverde LISW [address] [place] [address] Cracker Dough Mixer Hematology/Oncology 02/19/24 Jimmie Poole MD [address] [place] [address] Hematology/Oncology 02/21/24 Kate Castillo, REAL [address] [place] [address] Specialty Implementation Architect Hematology/Oncology 02/21/24 Airport Operations Specialist Relationship Specialty Start Date End Date Christie Saenz NP [address] [place] [address] PCP - General Family Medicine 04/16/24 Adrian Wallace DO Referring Neurology 11/13/18 Braxton Knowles MD [address] [place] [address] Referring General Surgery 01/09/24 Christie Saenz NP [address] [place] [address] Home Care Provider Family Medicine 01/09/24 Tessa Spring MD [address] [place] [address] General Surgery 02/01/24 Amber Valverde LISW [address] [place] [address] Cracker Dough Mixer Hematology/Oncology 02/19/24 Jimmie Poole MD [address] [place] [address] Hematology/Oncology 02/21/24 Kate Castillo, REAL [address] [place], [place] 435091 Specialty Implementation Architect Hematology/Oncology 02/21/24 Airport Operations Specialist Relationship Specialty Start Date End Date Christie Saenz NP [address] [place] [address] PCP - General Family Medicine 04/16/24 Adrian Wallace DO Referring Neurology 11/13/18 Braxton Knowles MD [address] [place] [address] Referring General Surgery 01/09/24 Christie Saenz NP [address] [place] [address] Home Care Provider Family Medicine 01/09/24 Tessa Spring MD [address] [place] [address] General Surgery 02/01/24 Amber Valverde LISW [address] [place] [address] Cracker Dough Mixer Hematology/Oncology 02/19/24 Jimmie Poole MD [address] [place] [address] Hematology/Oncology 02/21/24 Kate Castillo, REAL [address] [place] [address] Specialty Implementation Architect Hematology/Oncology 02/21/24 Airport Operations Specialist Relationship Specialty Start Date End Date Christie Saenz NP [address] [place] [address] PCP - General Family Medicine 04/16/24 Adrian Wallace DO Referring Neurology 11/13/18 Braxton Knowles MD [address] [place] [phone] Referring General Surgery 01/09/24 Christie Saenz NP [address] [place] [address] Home Care Provider Family Medicine 01/09/24 Tessa Spring MD [address] [place], [place] [id number] General Surgery 02/01/24 Amber Valverde LISW [address] [place] [address] Cracker Dough Mixer Hematology/Oncology 02/19/24 Jimmie Poole MD [address] [place] [address] Hematology/Oncology 02/21/24 Kate Castillo, RN [address] [place] [address] Specialty Implementation Architect Hematology/Oncology 02/21/24 Team Status: Active Member Role Status Dates Aubrey Lopez VSC, TRAY FILLER-C Primary Care Provider Active Team Status: Inactive Member Role Status Dates Christie Saenz VSC, TRAY FILLER-C Primary Care Provider Activ e Start: April 08, 2024 End: April 08, 2024 Ankit Marsh MD Attending Provider Active Star t: April 08, 2024 End: April 08, 2024 Ankit Marsh MD Emergency Provider Active Star t: April 08, 2024 End: April 08, 2024 Team Status: Inactive Member Role Status Dates Aubrey Lopez VSC, TRAY FILLER-C Primary Care Provider Active Start: July 11, 2024 End: July 11, 2024 Dr. Milagro Ying DO Referring Provider Active S tart: July 11, 2024 End: July 11, 2024 Dr. Milagro Ying DO Emergency Provider Active S tart: July 11, 2024 End: July 11, 2024 Airport Operations Specialist Relationship Specialty Start Date End Date Christie Saenz NP [address] [place] [address] PCP - General Family Medicine 04/16/24 Adrian Wallace DO Referring Neurology 11/13/18 Braxton Knowles MD [address] [place] [address] Referring General Surgery 01/09/24 Christie Saenz NP [address] [place] [address] Home Care Provider Family Medicine 01/09/24 Tessa Spring MD [address] [place] [address] General Surgery 02/01/24 Amber Valverde LISW [address] [facility] [place] [address] Cracker Dough Mixer Hematology/Oncology 02/19/24 Jimmie Poole MD [address] [facility] [place] [address] Hematology/Oncology 02/21/24 Kate Castillo, REAL [address] [facility], [place] [id number] Specialty Implementation Architect Hematology/Oncology 02/21/24 Airport Operations Specialist Relationship Specialty Start Date End Date Christie Saenz NP [address] [place] [id number] PCP - General Family Medicine 04/16/24 Adrian Wallace DO Referring Neurology 11/13/18 Braxton Knowles MD [address] [place] [address] Referring General Surgery 01/09/24 Christie Saenz NP [address] [place] [id number] Home Care Provider Family Medicine 01/09/24 Tessa Spring MD [address] [place] [address] General Surgery 02/01/24 Amber Valverde LISW [address] [place] [address] Cracker Dough Mixer Hematology/Oncology 02/19/24 Jimmie Poole MD [address] [place] [address] Hematology/Oncology 02/21/24 Kate Castillo, REAL [address] [place] [address] Specialty Implementation Architect Hematology/Oncology 02/21/24 Airport Operations Specialist Relationship Specialty Start Date End Date Christie Saenz NP [address] [facility] [place] [address] PCP - General Family Medicine 04/16/24 Adrian Wallace DO Referring Neurology 11/13/18 Braxton Knowles MD [address] [place] [phone] Referring General Surgery 01/09/24 Christie Saenz NP [address] [place] [address] Home Care Provider Family Medicine 01/09/24 Tessa Spring MD [address] [place] [phone] General Surgery 02/01/24 Amber Valverde LISW [address] [place] [address] Cracker Dough Mixer Hematology/Oncology 02/19/24 Jimmie Poole MD [address] [place] [address] Hematology/Oncology 02/21/24 Kate Castillo, REAL [address] [place] [address] Specialty Implementation Architect Hematology/Oncology 02/21/24 Airport Operations Specialist Relationship Specialty Start Date End Date Christie Saenz NP [address] [place] [address] PCP - General Family Medicine 04/16/24 Adrian Wallace DO Referring Neurology 11/13/18 Braxton Knowles MD [address] [place] [address] Referring General Surgery 01/09/24 Christie Saenz NP [address] [place] [address] Home Care Provider Family Medicine 01/09/24 Tessa Spring MD [address] [place] [address] General Surgery 02/01/24 Amber Valverde LISW [address] [place] [address] Cracker Dough Mixer Hematology/Oncology 02/19/24 Jimmie Poole MD [address] [place] [address] Hematology/Oncology 02/21/24 Kate Castillo, REAL [address] [place], [place] [id number] Specialty Implementation Architect Hematology/Oncology 02/21/24 Airport Operations Specialist Relationship Specialty Start Date End Date Christie Saenz NP [address] [place] [address] PCP - General Family Medicine 04/16/24 Adrian Wallace DO Referring Neurology 11/13/18 Braxton Knowles MD [address] [place] [address] Referring General Surgery 01/09/24 [place] [address] [place] [address] Home Care Provider Family Medicine 01/09/24 Tessa Spring MD [address] [place] [address] General Surgery 02/01/24 Amber Valverde LISW [address] [place] [address] Cracker Dough Mixer Hematology/Oncology 02/19/24 Jimmie Poole MD [address] [place] [address] Hematology/Oncology 02/21/24 Kate Castillo, REAL [address] [place] [address] Specialty Implementation Architect Hematology/Oncology 02/21/24 Airport Operations Specialist Relationship Specialty [place] [address] [place] [address] PCP - General Family Medicine 04/16/24 Adrian Wallace DO Referring Neurology 11/13/18 Braxton Knowles MD [address] [place] [address] Referring General Surgery 01/09/24 Christie Saenz NP [address] [place] [address] Home Care Provider Family Medicine 01/09/24 Tessa Spring MD [address] [place] [address] General Surgery 02/01/24 Amber Valverde LISW [address] [place] [address] Cracker Dough Mixer Hematology/Oncology 02/19/24 Jimmie Poole MD [address] [place] [address] Hematology/Oncology 02/21/24 Kate Castillo RN [address] [place] [address] Specialty Implementation Architect Hematology/Oncology 02/21/24 Airport Operations Specialist Relationship Specialty Start Date End Date Christie Saenz NP [address] [place] [address] PCP - General Family Medicine 04/16/24 Adrian Wallace DO Referring Neurology 11/13/18 Braxton Knowles MD [address] [place] [address] Referring General Surgery 01/09/24 Christie Saenz NP [address] [place] [address] Home Care Provider Family Medicine 01/09/24 Tessa Spring MD [address] [place] [address] General Surgery 02/01/24 Amber Valverde LISW [address] [place] [address] Cracker Dough Mixer Hematology/Oncology 02/19/24 Jimmie Poole MD [address] [place] [place] [address] Hematology/Oncology 02/21/24 Kate Castillo, REAL [address] [place] [place], [place] [address] Specialty Implementation Architect Hematology/Oncology 02/21/24 Airport Operations Specialist Relationship Specialty Start Date End Date Christie Saenz NP [address] [place] [address] PCP - General Family Medicine 04/16/24 Adrian Wallace DO Referring Neurology 11/13/18 Braxton Knowles MD [address] [place] [address] Referring General Surgery 01/09/24 Christie Saenz NP [address] [place] [address] Home Care Provider Family Medicine 01/09/24 Tessa Spring MD [address] [place] [address] General Surgery 02/01/24 Amber Valverde LISW [address] [place] [address] Cracker Dough Mixer Hematology/Oncology 02/19/24 Jimmie Poole MD [address] [place] [address] Hematology/Oncology 02/21/24 Kate Castillo RN [address] [place] [address] Specialty Implementation Architect Hematology/Oncology 02/21/24 Airport Operations Specialist Relationship Specialty Start Date End Date Christie Saenz NP [address] [place] [address] PCP - General Family Medicine 04/16/24 Adrian Wallace DO Referring Neurology 11/13/18 Braxton Knowles MD [address] [place] [address] Referring General Surgery 01/09/24 Christie Saenz NP [address] [place] [address] Home Care Provider Family Medicine 01/09/24 Tessa Spring MD [address] [place] [address] General Surgery 02/01/24 Amber Valverde LISW [address] [place] [address] Cracker Dough Mixer Hematology/Oncology 02/19/24 Jimmie Poole MD [address] [place] [address] Hematology/Oncology 02/21/24 Kate Castillo RN [address] [place], [place] [id number] Specialty Implementation Architect Hematology/Oncology 02/21/24 Airport Operations Specialist Relationship Specialty Start Date End Date Christie Saenz NP [address] [place] [address] PCP - General Family Medicine 04/16/24 Adrian Wallace DO Referring Neurology 11/13/18 Braxton Knowles MD [address] [place] [address] Referring General Surgery 01/09/24 Christie Saenz NP [address] [place] [address] Home Care Provider Family Medicine 01/09/24 Tessa Spring MD [address] [place] [address] General Surgery 02/01/24 Amber Valverde LISW [address] [place] [address] Cracker Dough Mixer Hematology/Oncology 02/19/24 Jimmie oPole MD [address] [place] [address] Hematology/Oncology 02/21/24 Kate Castillo, REAL [address] [place] [address] Specialty Implementation Architect Hematology/Oncology 02/21/24 Airport Operations Specialist Relationship Specialty Start Date End Date Christie Saenz NP [address] [place] [address] PCP - General Family Medicine 04/16/24 Adrian Wallace DO Referring Neurology 11/13/18 Braxton Knowles MD [address] [place] [address] Referring General Surgery 01/09/24 Christie Saenz NP [address] [place] [address] Home Care Provider Family Medicine 01/09/24 Tessa Spring MD [address] [place] [address] General Surgery 02/01/24 Amber Valverde LISW [address] [place] [address] Cracker Dough Mixer Hematology/Oncology 02/19/24 Jimmie Poole MD [address] [place] [address] Hematology/Oncology 02/21/24 Kate Castillo RN [address] [place] [address] Specialty Implementation Architect Hematology/Oncology 02/21/24 Airport Operations Specialist Relationship Specialty [place] [address] [place] [address] PCP - General Family Medicine 04/16/24 Adrian Wallace DO Referring Neurology 11/13/18 Braxton Knowles MD [address] [place] [address] Referring General Surgery 01/09/24 Christie Saenz NP [address] [place] [address] Home Care Provider Family Medicine 01/09/24 Tessa Spring MD [address] [place] [address] General Surgery 02/01/24 Amber Valverde LISW [address] [place] [address] Cracker Dough Mixer Hematology/Oncology 02/19/24 Jimmie Poole MD [address] [place] [address] Hematology/Oncology 02/21/24 Kate Castillo RN [address] [place] [address] Specialty Implementation Architect Hematology/Oncology 02/21/24 Airport Operations Specialist Relationship Specialty Start Date End Date Christie Saenz NP [address] [place] [address] PCP - General Family Medicine 04/16/24 Adrian Wallace DO Referring Neurology 11/13/18 Braxton Knowles MD [address] [place] [address] Referring General Surgery 01/09/24 Christie Saenz NP [address] [place] [address] Home Care Provider Family Medicine 01/09/24 Tessa Spring MD [address] [place] [address] General Surgery 02/01/24 Amber Valverde LISW [address] [place] [address] Cracker Dough Mixer Hematology/Oncology 02/19/24 Jimmie Poole MD [address] [place] [address] Hematology/Oncology 02/21/24 Kate Castillo, RN [address] [place] [address] Specialty Implementation Architect Hematology/Oncology 02/21/24 Airport Operations Specialist Relationship Specialty Start Date End Date Christie Saenz NP [address] [place] [address] PCP - General Family Medicine 04/16/24 Adrian Wallace DO Referring Neurology 11/13/18 Braxton Knowles MD [address] [place] [address] Referring General Surgery 01/09/24 Christie Saenz NP [address] [place] [address] Home Care Provider Family Medicine 01/09/24 Tessa Spring MD [address] [place] [address] General Surgery 02/01/24 Amber Valverde LISW [address] [place] [address] Cracker Dough Mixer Hematology/Oncology 02/19/24 Jimmie Poole MD [address] [place] [address] Hematology/Oncology 02/21/24 Kate Castillo RN [address] [place] [address] Specialty Implementation Architect Hematology/Oncology 02/21/24 Airport Operations Specialist Relationship Specialty Start Date End Date Christie Saenz NP [address] [place] [address] PCP - General Family Medicine 04/16/24 Braxton Knowles MD [address] [place] [address] Referring General Surgery 01/09/24 Tessa Spring MD [address] [place], [place] [id number] General Surgery 02/01/24 Amber Valverde LISW [address] [place] [address] Cracker Dough Mixer Hematology/Oncology 02/19/24 Jimmie Poole MD [address] [place] [address] Hematology/Oncology 02/21/24 Kate Castillo RN [address] [place] [address] Specialty Implementation Architect Hematology/Oncology 02/21/24 Tessa Spring MD [address] [place], [place] [id number] Referring General Surgery 09/04/24 Jimmie Poole MD [address] [place] [address] Home Care Provider Hematology/Oncology 09/04/24 [place] Brown, PT [address] [place] [address] Scrapper Post Acute Care 09/04/24 Airport Operations Specialist Relationship Specialty Start Date End Date GonzaloChristieDAVID [address] [place] [address] PCP - General Family Medicine 04/16/24 Braxton Knowles MD [address] [place] [address] Referring General Surgery 01/09/24 Tessa Spring MD [address] [place] [address] General Surgery 02/01/24 Amber Valverde LISW [address] [place] [address] Cracker Dough Mixer Hematology/Oncology 02/19/24 Jimmie Poole MD [address] [place] [address] Hematology/Oncology 02/21/24 Kate Castillo, REAL [address] [place] [address] Specialty Implementation Architect Hematology/Oncology 02/21/24 Tessa Spring MD [address] [place] [address] Referring General Surgery 09/04/24 Jimmie Poole MD [address] [place] [address] Home Care Provider Hematology/Oncology 09/04/24 [place] Brown, PT [address] [place] [address] Scrapper Post Acute Care 09/04/24 Team Status: Inactive Member Role Status Dates Zebulun Beam VSC, TRAY FILLER-C Primary Care Provider Active Start: July 11, 2024 End: July 11, 2024 Dr. Milagro Ying , Attending Provider Active S tart: July 11, 2024 End: July 11, 2024 Dr. Milagro Ying DO Referring Provider Active S tart: July 11, 2024 End: July 11, 2024 Dr. Milagro Ying , Emergency Provider Active S tart: July 11, 2024 End: July 11, 2024 Team Status: Inactive Member Role Status Dates Zebuluchico Beam VSC, TRAY FILLER-C Primary Care Provider Active Start: September 04, [...] Team Status: Active Member Role Status Dates Zekarthik Beam VSC, TRAY FILLER-C Primary Care Provider Active Start: September 13, 2024 Dr. Qamar Smith MD Attending Provider Active Start: September 13, 2024 Dr. Qamar Smith MD Referring Provider Active Start: September 13, 2024 Airport Operations Specialist Relationship Specialty Start Date End Date Christie Saenz NP [address] [place] [address] PCP - General Family Medicine 04/16/24 Braxton Knowles MD [address] [place] [address] Referring General Surgery 01/09/24 Tessa Spring MD [address] [place] [address] General Surgery 02/01/24 Amber Valverde LISW [address] [place] [address] Cracker Dough Mixer Hematology/Oncology 02/19/24 Jimmie Poole MD [address] [facility] [place] [address] Hematology/Oncology 02/21/24 Kate Castillo, REAL [address] [place] [address] Specialty Implementation Architect Hematology/Oncology 02/21/24 Tessa Spring MD [address] [place] [address] Referring General Surgery 09/04/24 Jimmie Poole MD [address], [place] [id number] Home Care Provider Hematology/Oncology 09/04/24 Airport Operations Specialist Relationship Specialty Start Date End Date Christie Saenz NP [address] [place] [address] PCP - General Family Medicine 04/16/24 Braxton Knowles MD [address] [place] [address] Referring General Surgery 01/09/24 Tessa Spring MD [address] [place] [address] General Surgery 02/01/24 Amber Valverde LISW [address] [place] [address] Cracker Dough Mixer Hematology/Oncology 02/19/24 Jimmie Poole MD [address] [place] [address] Hematology/Oncology 02/21/24 Kate Castillo RN [address] [place] [address] Specialty Implementation Architect Hematology/Oncology 02/21/24 Tessa Spring MD [address] [place] [address] Referring General Surgery 09/04/24 Jimmie Poole MD [address] [place] [address] Home Care Provider Hematology/Oncology 09/04/24 Airport Operations Specialist Relationship Specialty Start Date End Date Christie Saenz NP [address] [place] [address] PCP - General Family Medicine 04/16/24 Braxton Knowles MD [address] [place] [phone] Referring General Surgery 01/09/24 Tessa Spring MD [address] [place] [address] General Surgery 02/01/24 Amber Valverde LISW [address] [place] [address] Cracker Dough Mixer Hematology/Oncology 02/19/24 Jimmie Poole MD [address] [place] [address] Hematology/Oncology 02/21/24 Kate Castillo, REAL [address] [place] [address] Specialty Implementation Architect Hematology/Oncology 02/21/24 Tessa Spring MD [address] [place] [address] Referring General Surgery 09/04/24 Jimmie Poole MD [address] [place] [address] Home Care Provider Hematology/Oncology 09/04/24 Airport Operations Specialist Relationship Specialty Start Date End Date Christie Saenz NP [address] [place] [address] PCP - General Family Medicine 04/16/24 Braxton Knowles MD [address] [place], [place] [id number] Referring General Surgery 01/09/24 Tessa Spring MD [address] [place], [place] [id number] General Surgery 02/01/24 Amber Valverde LISW [address] [place] [address] Cracker Dough Mixer Hematology/Oncology 02/19/24 Jimmie Poole MD [address] [place] [address] Hematology/Oncology 02/21/24 Kate Castillo, REAL [address] [place] [address] Specialty Implementation Architect Hematology/Oncology 02/21/24 Tessa Spring MD [address] [place], [place] 9345395 Referring General Surgery 09/04/24 Jimmie Poole MD [address] [place] [address] Home Care Provider Hematology/Oncology 09/04/24 Team Status: Active Member Role/Relationship Status Dates Zebulun Beam VSC, TRAY FILLER-C Primary Care Provider Active Team Status: Inactive Member Role/Relationship Status Dates Zebulun Beam VSC, TRAY FILLER-C Primary Care Provider Active Start: July 11, [...] Member Role/Relationship Status Dates Zebulun Beam VSC, TRAY FILLER-C Primary Care Provider Active Start: September 04, [...] Member Role/Relationship Status Dates Zebulun Beam VSC, TRAY FILLER-C Primary Care Provider Active Start: September 13, 2024 End: September 13, 2024 Dr. Qamar Smith MD Attending Provider Active Start: September 13, 2024 End: September 13, 2024 Dr. Qamar Smith MD Referring Provider Active Start: September 13, 2024 End: September 13, 2024 Airport Operations Specialist Relationship Specialty Start Date End Date Christie Saenz NP [address] [place] [address] PCP - General Family Medicine 04/16/24 Braxton Knowles MD [address] [place] [address] Referring General Surgery 01/09/24 Tessa Spring MD [address] [place] [id number] General Surgery 02/01/24 Amber Valverde LISW [address] [facility] [place] [address] Cracker Dough Mixer Hematology/Oncology 02/19/24 Jimmie Poole MD [address] [place] [address] Hematology/Oncology 02/21/24 Kate Castillo, RN [address] [facility] [address] Specialty Implementation Architect Hematology/Oncology 02/21/24 Tessa Spring MD [address] [id number] Referring General Surgery 09/04/24 Jimmie Poole MD [address] [place] [address] Home Care Provider Hematology/Oncology 09/04/24 Airport Operations Specialist Relationship Specialty Start Date End Date Christie Saenz NP [address] [place] [address] PCP - General Family Medicine 04/16/24 Braxton Knowles MD [address] [place] [phone] Referring General Surgery 01/09/24 Tessa Spring MD [address] [place] [phone] General Surgery 02/01/24 Amber Valverde LISW [address] [facility] [place] [address] Cracker Dough Mixer Hematology/Oncology 02/19/24 Jimmie Poole MD [address] [facility] [place] [address] Hematology/Oncology 02/21/24 Kate Castillo, REAL [address] [place] [address] Specialty Implementation Architect Hematology/Oncology 02/21/24 Tessa Spring MD [address] [place] [phone] Referring General Surgery 09/04/24 Jimmie Poole MD [address] [place] [address] Home Care Provider Hematology/Oncology 09/04/24 Airport Operations Specialist Relationship Specialty Start Date End Date Christie Saenz NP [address] [place] [address] PCP - General Family Medicine 04/16/24 Braxton Knowles MD [address] [place] [address] Referring General Surgery 01/09/24 Tessa Spring MD [address] [place] [address] General Surgery 02/01/24 Amber Valverde LISW [address] [place] [address] Cracker Dough Mixer Hematology/Oncology 02/19/24 Jimmie Poole MD [address] [place] [address] Hematology/Oncology 02/21/24 Kate Castillo, REAL [address] [place] [address] Specialty Implementation Architect Hematology/Oncology 02/21/24 Tessa Spring MD [address] [place] [address] Referring General Surgery 09/04/24 Jimmie Poole MD [address] [place] [address] Home Care Provider Hematology/Oncology 09/04/24 Airport Operations Specialist Relationship Specialty Start Date End Date Christie Saenz NP [address] [place], [place] [address]2311 PCP - General Family Medicine 04/16/24 Braxton Knowles MD [address] [place] [address] Referring General Surgery 01/09/24 Tessa Spring MD [address] [place], [place] [id number] General Surgery 02/01/24 Amber Valverde LISW [address] [place] [address] Cracker Dough Mixer Hematology/Oncology 02/19/24 Jimmie Poole MD [address] [facility] [place] [address] Hematology/Oncology 02/21/24 Kate Castillo, REAL [address] [facility] [place] [id number] Specialty Implementation Architect Hematology/Oncology 02/21/24 Tessa Spring MD [address] [place], [place] [phone] Referring General Surgery 09/04/24 Jimmie Poole MD [address] [place] [address] Home Care Provider Hematology/Oncology 09/04/24 Airport Operations Specialist Relationship Specialty Start Date End Date Christie Saenz NP [address] [place] [address] PCP - General Family Medicine 04/16/24 Braxton Knowles MD [address] [place] [address] Referring General Surgery 01/09/24 Tessa Spring MD [address] [place] [address] General Surgery 02/01/24 Amber Valverde LISW [address] [place] [address] Cracker Dough Mixer Hematology/Oncology 02/19/24 Jimmie Poole MD [address] [place] [address] Hematology/Oncology 02/21/24 Kate Castillo, REAL [address] [place] [address] Specialty Implementation Architect Hematology/Oncology 02/21/24 Tessa Spring MD [address] [place] [address] Referring General Surgery 09/04/24 Jimmie Poole MD [address] [place] [address] Home Care Provider Hematology/Oncology 09/04/24 Airport Operations Specialist Relationship Specialty Start Date End Date Christie Saenz NP [address] [place] [address] PCP - General Family Medicine 04/16/24 Braxton Knowles MD [address] [place] [address] Referring General Surgery 01/09/24 Tessa Spring MD [address] [phone] General Surgery 02/01/24 Amber Valverde LISW [address] [place] [address] Cracker Dough Mixer Hematology/Oncology 02/19/24 Jimmie Poole MD [address] [place] [address] Hematology/Oncology 02/21/24 Kate Castillo, REAL [address] [place] [address] Specialty Implementation Architect Hematology/Oncology 02/21/24 Tessa Spring MD [address] [place] [address] Referring General Surgery 09/04/24 Jimmie Poole MD [address] [place] [address] Home Care Provider Hematology/Oncology 09/04/24 Airport Operations Specialist Relationship Specialty Start Date End Date Christie Saenz NP [address] [place] [address] PCP - General Family Medicine 04/16/24 Braxton Knowles MD [address] [place] [address] Referring General Surgery 01/09/24 Tessa Spring MD [address] [place], [place] [id number] General Surgery 02/01/24 Amber Valverde LISW [address] [facility] [place] [address] Cracker Dough Mixer Hematology/Oncology 02/19/24 Jimmie Poole MD [address] [facility] [place] [address] Hematology/Oncology 02/21/24 Kate Castillo, RN [address] [place], [place] [id number] Specialty Implementation Architect Hematology/Oncology 02/21/24 Tessa Spring MD [address] [place] [address] Referring General Surgery 09/04/24 Jimmie Poole MD [address], [place] [address] Home Care Provider Hematology/Oncology 09/04/24 Airport Operations Specialist Relationship Specialty Start Date End Date Christie Saenz NP [address] [place] [address] PCP - General Family Medicine 04/16/24 Braxton Knowles MD [address] [place] [address] Referring General Surgery 01/09/24 Tessa Spring MD [address] [place] [address] General Surgery 02/01/24 Amber Valverde LISW [address] [place] [address] Cracker Dough Mixer Hematology/Oncology 02/19/24 Jimmie Poole MD [address] [facility] [address] Hematology/Oncology 02/21/24 Kate Castillo, REAL [address] [facility] [place] [address] Specialty Implementation Architect Hematology/Oncology 02/21/24 Tessa Spring MD [address] [phone] Referring General Surgery 09/04/24 Jimmie Poole MD [address] [place] [address] Home Care Provider Hematology/Oncology 09/04/24 Airport Operations Specialist Relationship Specialty Start Date End Date Christie Saenz NP [address] [place] [address] PCP - General Family Medicine 04/16/24 Braxton Knowles MD [address] [place] [address] Referring General Surgery 01/09/24 Tessa Spring MD [address] [place] [address] General Surgery 02/01/24 Amber Valverde LISW [address] [place] [address] Cracker Dough Mixer Hematology/Oncology 02/19/24 Jimmie Poole MD [address] [facility] [address] Hematology/Oncology 02/21/24 Kate Castillo, REAL [address] [place] [address] Specialty Implementation Architect Hematology/Oncology 02/21/24 Tessa Spring MD [address] [place] [address] Referring General Surgery 09/04/24 Jimmie Poole MD [address] [place] [address] Home Care Provider Hematology/Oncology 09/04/24 Airport Operations Specialist Relationship Specialty Start Date End Date Christie Saenz NP [address] [place] [address] PCP - General Family Medicine 04/16/24 Braxton Knowles MD [address] [place] [address] Referring General Surgery 01/09/24 Tessa Spring MD [address] [place] [address] General Surgery 02/01/24 Amber Valverde LISW [address] [place] [address] Cracker Dough Mixer Hematology/Oncology 02/19/24 Jimmie Poole MD [address] [place] [address] Hematology/Oncology 02/21/24 Kate Castillo RN [address] [place] [address] Specialty Implementation Architect Hematology/Oncology 02/21/24 Tessa Spring MD [address] [place] [address] Referring General Surgery 09/04/24 Jimmie Poole MD [address] [place] [address] Home Care Provider Hematology/Oncology 09/04/24 Team Status: Active Member Role/Relationship Status Dates Zebulun Beam VSC, TRAY FILLER-C Primary Care Provider Active Start: October 18, 2024 Zebulun Beam VSC, TRAY FILLER-C Attending Provider Active Start: October 18, 2024 Zebulun Beam VSC, TRAY FILLER-C Referring Provider Active Start: October 18, 2024 Team Status: Inactive Member Role/Relationship Status Dates Zebulun Beam VSC, TRAY FILLER-C Primary Care Provider Active Start: October 23, 2024 End: October 23, 2024 Ankit Marsh MD Emergency Provider Active Star t: October 23, 2024 End: October 23, 2024 Airport Operations Specialist Relationship Specialty Start Date End Date Christie Saenz NP [address] [place] [id number] PCP - General Family Medicine 04/16/24 Braxton Knowles MD [facility] [place] [address] Referring General Surgery 01/09/24 Tessa Spring MD [address] [id number] General Surgery 02/01/24 Amber Valverde LISW [address] [place] [address] Cracker Dough Mixer Hematology/Oncology 02/19/24 Jimmie Poole MD [address] [facility] [place] [address] Hematology/Oncology 02/21/24 Kate Castillo, REAL [address] [facility] [place], [place] [id number] Specialty Implementation Architect Hematology/Oncology 02/21/24 Tessa Spring MD [address] [place] [address] Referring General Surgery 09/04/24 Jimmie Poole MD [address] [place] [address] Home Care Provider Hematology/Oncology 09/04/24 Airport Operations Specialist Relationship Specialty Start Date End Date Christie Saenz NP [address] [place], [place] [id number] PCP - General Family Medicine 04/16/24 Braxton Knowles MD [address] [place] [address] Referring General Surgery 01/09/24 Tessa Spring MD [address] [place] [address] General Surgery 02/01/24 Amber Valverde LISW [address] [place] [address] Cracker Dough Mixer Hematology/Oncology 02/19/24 Jimmie Poole MD [address] [facility] [place] [address] Hematology/Oncology 02/21/24 Kate Castillo, REAL [address] [facility] [place] [id number] Specialty Implementation Architect Hematology/Oncology 02/21/24 Tessa Spring MD [address] [place] [address] Referring General Surgery 09/04/24 Jimmie Poole MD [address] [place] [address] Home Care Provider Hematology/Oncology 09/04/24 Airport Operations Specialist Relationship Specialty Start Date End Date Christie Saenz NP [address] [place] [address] PCP - General Family Medicine 04/16/24 Braxton Knowles MD [address] [place] [address] Referring General Surgery 01/09/24 Tessa Spring MD [address] [place] [address] General Surgery 02/01/24 Amber Valverde LISW [address] [place] [address] Cracker Dough Mixer Hematology/Oncology 02/19/24 Jimmie Poole MD [address] [place] [address] Hematology/Oncology 02/21/24 Kate Castillo, REAL [address] [place] [address] Specialty Implementation Architect Hematology/Oncology 02/21/24 Tessa Spring MD [address] [place] [address] Referring General Surgery 09/04/24 Jimmie Poole MD [address] [place] [address] Home Care Provider Hematology/Oncology 09/04/24 Airport Operations Specialist Relationship Specialty Start Date End Date Christie Saenz NP [address] [place] [address] PCP - General Family Medicine 04/16/24 Braxton Knowles MD [address] [place], [place] [phone] Referring General Surgery 01/09/24 Tessa Spring MD [address] [place] [address] General Surgery 02/01/24 Amber Valverde LISW [address] [place] [address] Cracker Dough Mixer Hematology/Oncology 02/19/24 Jimmie Poole MD [address] [place] [address] Hematology/Oncology 02/21/24 Kate Castillo, RN [address] [place] [address] Specialty Implementation Architect Hematology/Oncology 02/21/24 eTssa Spring MD [address] [place] [address] Referring General Surgery 09/04/24 Jimmie Poole MD [address] [place] [address] Home Care Provider Hematology/Oncology 09/04/24 Airport Operations Specialist Relationship Specialty Start Date End Date Mary Moss, LUZMA PCP - General Family Medicine 05/28/18 04/15/24 Christie Saenz NP [address] [place] [address] PCP - General Family Medicine 04/16/24 Adrian Wallace DO Jae Referring Neurology 11/13/18 09/03/24 Braxton Knowles MD [address] [place] [phone] Referring General Surgery 01/09/24 Christie Saenz NP [address] [place] [address] Home Care Provider Family Medicine 01/09/24 09/03/24 Joe Williamson, REAL [address] [place], [place] [id number] Scrapper Post Acute Care 01/09/24 02/04/24 Tessa Spring MD [address] [place] [address] General Surgery 02/01/24 Amber Valverde LISW [address] [place] [address] Cracker Dough Mixer Hematology/Oncology 02/19/24 Jimmie Poole MD [address] [place] [address] Hematology/Oncology 02/21/24 Kate Castillo RN [address] [place] [address] Specialty Implementation Architect Hematology/Oncology 02/21/24 Tessa Spring MD [address] [place] [address] Referring General Surgery 09/04/24 Jimmie Poole MD [address] [place] [address] Home Care Provider Hematology/Oncology 09/04/24 JesseestelaKen Abarcaon, PT [address] [place] [address] Scrapper Post Acute Care 09/04/24 09/04/24 Team Status: Inactive Member Role/Relationship Status Dates Zebulun Beam VSC, TRAY FILLER-C Primary Care Provider Active Start: October 23, 2024 End: October 23, 2024 Ankit Marsh MD Attending Provider Active Star t: October 23, 2024 End: October 23, 2024 Ankit Marsh MD Emergency Provider Active Star t: October 23, 2024 End: October 23, 2024 Team Status: Active Member Role/Relationship Status Dates Zebulun Beam VSC, TRAY FILLER-C Primary Care Provider Active Start: November 07, 2024 Dr. Lluvia Vann MD Emergency Provider Active S tart: November 07, 2024 Dr. Annette Mendez MD Admit Provider Active Star t: November 07, 2024 Dr. Annette Mendez MD Attending Provider Active Start: November 07, 2024 Airport Operations Specialist Relationship Specialty Start Date End Date Christie Saenz NP [address] [place] [address] PCP - General Family Medicine 04/16/24 Braxton Knowles MD [facility] [place] [phone] Referring General Surgery 01/09/24 Tessa Spring MD [address] [place], [place] [address] General Surgery 02/01/24 Amber Valverde LISW [address] [place] [address] Cracker Dough Mixer Hematology/Oncology 02/19/24 Jimmie Poole MD [address] [place] [address] Hematology/Oncology 02/21/24 Kate Castillo, REAL [address] [place], [place] 448491 Specialty Implementation Architect Hematology/Oncology 02/21/24 Tessa Spring MD [address] [place] [address] Referring General Surgery 09/04/24 Jimmie Poole MD [address] [place] [address] Home Care Provider Hematology/Oncology 09/04/24 Team Status: Inactive Member Role/Relationship Status Dates Aubrey CURIEL, TRAY FILLER-C Primary Care Provider Active Start: November 07, [...] November 07, 2024 End: November 08, 2024 Airport Operations Specialist Relationship Specialty Start Date End Date Christie Saenz NP [address] [place] [address] PCP - General Family Medicine 04/16/24 Braxton Knowles MD [address] [place] [address] Referring General Surgery 01/09/24 Tessa Spring MD [address] [place] [address] General Surgery 02/01/24 Amber Valverde LISW [address] [facility] [place] [address] Cracker Dough Mixer Hematology/Oncology 02/19/24 Jimmie Poole MD [address] [facility] [place] [address] Hematology/Oncology 02/21/24 Kate Castillo, RN [address] [place] [address] Specialty Implementation Architect Hematology/Oncology 02/21/24 Tessa Spring MD [address] [place] [address] Referring General Surgery 09/04/24 Jimmie Poole MD [address] [place] [address] Home Care Provider Hematology/Oncology 09/04/24 Airport Operations Specialist Relationship Specialty Start Date End Date Christie Saenz NP [address] [place] [address] PCP - General Family Medicine 04/16/24 Braxton Knowles MD [address] [place] [address] Referring General Surgery 01/09/24 Tessa Spring MD [address] [place] [address] General Surgery 02/01/24 Amber Valverde LISW [address] [place] [address] Cracker Dough Mixer Hematology/Oncology 02/19/24 Jimmie Poole MD [address] [place] [address] Hematology/Oncology 02/21/24 Kate Castillo RN [address] [facility] [place] [address] Specialty Implementation Architect Hematology/Oncology 02/21/24 Tessa Spring MD [address] [place] [address] Referring General Surgery 09/04/24 Jimmie Poole MD [address] [place] [address] Home Care Provider Hematology/Oncology 09/04/24 Airport Operations Specialist Relationship Specialty Start Date End Date Christie Saenz NP [address] [place] [address] PCP - General Family Medicine 04/16/24 Braxton Knowles MD [address] [place] [address] Referring General Surgery 01/09/24 Tessa Spring MD [address] [place] [address] General Surgery 02/01/24 Amber Valverde LISW [address] [place] [address] Cracker Dough Mixer Hematology/Oncology 02/19/24 Jimmie Poole MD [address] [facility] [place] [address] Hematology/Oncology 02/21/24 Kate Castillo RN [address] [facility] [place] [address] Specialty Implementation Architect Hematology/Oncology 02/21/24 Tessa Spring MD [address] [place] [address] Referring General Surgery 09/04/24 Jimmie Poole MD [address] [place], [place] [id number] Home Care Provider Hematology/Oncology 09/04/24 Airport Operations Specialist Relationship Specialty Start Date End Date Christie Saenz NP [address] [place] [address] PCP - General Family Medicine 04/16/24 Braxton Knowles MD [address] [place] [phone] Referring General Surgery 01/09/24 Tessa Spring MD [address] [place] [phone] General Surgery 02/01/24 Amber Valverde LISW [address] [place] [address] Cracker Dough Mixer Hematology/Oncology 02/19/24 Jimmie Poole MD [address] [place] [address] Hematology/Oncology 02/21/24 Kate Castillo, REAL [address] [place] [address] Specialty Implementation Architect Hematology/Oncology 02/21/24 Tessa Spring MD [address] [place] [address] Referring General Surgery 09/04/24 Jimmie Poole MD [address], [place] 495[address]256 Home Care Provider Hematology/Oncology 6/11/25 Team Status: Inactive Member Role/Relationship Status Dates Zebulun Beam VSC, TRAY FILLER-C Primary Care Provider Active Start: September 04, [...] Member Role/Relationship Status Dates Zebulun Beam VSC, TRAY FILLER-C Primary Care Provider Active Start: September 13, 2024 End: September 13, 2024 Dr. Qamar Smith MD Attending Provider Active Start: September 13, 2024 End: September 13, 2024 Dr. Qamar Smith MD Referring Provider Active Start: September 13, 2024 End: September 13, 2024 Team Status: Active Member Role/Relationship Status Dates Zebulun Beam VSC, TRAY FILLER-C Primary Care Provider Active Start: October 18, 2024 Zebulun Beam VSC, TRAY FILLER-C Attending Provider Active Start: October 18, 2024 Zebulun Beam VSC, TRAY FILLER-C Referring Provider Active Start: October 18, 2024 Team Status: Inactive Member Role/Relationship Status Dates Zebulun Beam VSC, TRAY FILLER-C Primary Care Provider Active Start: October 23, 2024 End: October 23, 2024 Ankit Marsh MD Attending Provider Active Star t: October 23, 2024 End: October 23, 2024 Ankit Marsh MD Emergency Provider Active Star t: October 23, 2024 End: October 23, 2024 Team Status: Inactive Member Role/Relationship Status Dates Zebulun Beam VSC, TRAY FILLER-C Primary Care Provider Active Start: November 07, [...] Member Role/Relationship Status Dates Zebuluchico Beam VSC, TRAY FILLER-C Primary Care Provider Active Start: November 08, [...] Team Status: Inactive Member Role/Relationship Status Dates Zebureji Beam VSC, TRAY FILLER-C Primary Care Provider Active Start: November 20, 2024 End: November 21, 2024 Dr. Kavin Adams DO Emergency Provider Active Start : November 20, 2024 End: November 21, 2024 Dr. Rachana Nichols MD Other Provider Active Star t: November 20, 2024 End: November 21, 2024 Airport Operations Specialist Relationship Specialty Start Date End Date Christie Saenz NP [address] [place] [address] PCP - General Family Medicine 04/16/24 Braxton Knowles MD [address] [place] [address] Referring General Surgery 01/09/24 Tessa Spring MD [address] [place] [address] General Surgery 02/01/24 Amber Valverde LISW [address] [place] [address] Cracker Dough Mixer Hematology/Oncology 02/19/24 Jimmie Poole MD [address] [facility] [place] [id number] Hematology/Oncology 02/21/24 Kate Castillo, RN [address] [place], [place] 235[address] Specialty Implementation Architect Hematology/Oncology 02/21/24 Tessa Spring MD [address] [place] [address] Referring General Surgery 09/04/24 Jimmie Poole MD [address] [place] [address] Home Care Provider Hematology/Oncology 09/04/24 Team Status: Inactive Member Role/Relationship Status Dates Zebulun Beam VSC, TRAY FILLER-C Primary Care Provider Active Start: October 18, 2024 End: October 18, 2024 Zebulun Beam VSC, TRAY FILLER-C Attending Provider Active Start: October 18, 2024 End: October 18, 2024 Zebulun Beam VSC, TRAY FILLER-C Referring Provider Active Start: October 18, 2024 End: October 18, 2024 Team Status: Active Member Role/Relationship Status Dates Zebulun Beam VSC, TRAY FILLER-C Primary Care Provider Active Start: November 20, 2024 Dr. Kavin Adams DO Emergency Provider Active Start : November 20, 2024 Dr. Rachana Nichols MD Attending Provider Active Start: November 20, 2024 Dr. Rachana Nichols MD Other Provider Active Star t: November 20, 2024 Team Status: Inactive Member Role/Relationship Status Dates Zebulun Beam VSC, TRAY FILLER-C Primary Care Provider Active Start: November 25, 2024 End: November 25, 2024 Dr. Demarcus Gauthier MD Emergency Provider Active S tart: November 25, 2024 End: November 25, 2024 Airport Operations Specialist Relationship Specialty Start Date End Date Christie Saenz NP [address] [place] [address] PCP - General Family Medicine 04/16/24 Braxton Knowles MD [address] [place] [phone] Referring General Surgery 01/09/24 Tessa Spring MD [address] [place] [phone] General Surgery 02/01/24 Amber Valverde LISW [address] [place] [address] Cracker Dough Mixer Hematology/Oncology 02/19/24 Jimmie Poole MD [address] [place] [address] Hematology/Oncology 02/21/24 Kate Castillo, REAL [address] [place] [address] Specialty Implementation Architect Hematology/Oncology 02/21/24 Tessa Spring MD [address] [place] [address] Referring General Surgery 09/04/24 Jimmie Poole MD [address] [place] [address] Home Care Provider Hematology/Oncology 09/04/24 Airport Operations Specialist Relationship Specialty Start Date End Date Christie Saenz NP [address] [place] [address] PCP - General Family Medicine 04/16/24 Braxton Knowles MD [address] [place] [address] Referring General Surgery 01/09/24 Tessa Spring MD [address] [place] [phone] General Surgery 02/01/24 Amber Valverde LISW [address] [facility] [place] [address] Cracker Dough Mixer Hematology/Oncology 02/19/24 Jimmie Poole MD [address] [facility] [place] [address] Hematology/Oncology 02/21/24 Kate Castillo, REAL [address] [facility] [address] Specialty Implementation Architect Hematology/Oncology 02/21/24 Tessa Spring MD [address] [place] [phone] Referring General Surgery 09/04/24 Jimmie Poole MD [address] [place] [address] Home Care Provider Hematology/Oncology 09/04/24 Airport Operations Specialist Relationship Specialty Start Date End Date Christie Saenz NP [address] [place] [address] PCP - General Family Medicine 04/16/24 Braxton Knowles MD [address] [place] [phone] Referring General Surgery 01/09/24 Tessa Spring MD [address] [place], [place] [id number] General Surgery 02/01/24 Amber Valverde LISW [address] [facility] [place] [address] Cracker Dough Mixer Hematology/Oncology 02/19/24 Jimmie Poole MD [address] [facility], [place] [address] Hematology/Oncology 02/21/24 Kate Castillo RN [address] [facility] [place] [address] Specialty Implementation Architect Hematology/Oncology 02/21/24 Tessa Spring MD [address] [place] [address] Referring General Surgery 09/04/24 Jimmie Poole MD [address] [place] [address] Home Care Provider Hematology/Oncology 09/04/24 Airport Operations Specialist Relationship Specialty Start Date End Date Christie Saenz NP [address] [place] [address] PCP - General Family Medicine 04/16/24 Braxton Knowles MD [address] [place] [address] Referring General Surgery 01/09/24 Tessa Spring MD [address] [place] [address] General Surgery 02/01/24 Amber Valverde LISW [address] [place] [address] Cracker Dough Mixer Hematology/Oncology 02/19/24 Jimmie Poole MD [address] [place] [address] Hematology/Oncology 02/21/24 Kate Castillo RN [address] [facility] [place] [address] Specialty Implementation Architect Hematology/Oncology 02/21/24 Tessa Spring MD [address] [place], [place] [id number] Referring General Surgery 09/04/24 Jimmie Poole MD [address] [place] [address] Home Care Provider Hematology/Oncology 09/04/24 Airport Operations Specialist Relationship Specialty Start Date End Date Christie Saenz NP [address] [place] [address] PCP - General Family Medicine 04/16/24 Braxton Knowles MD [address] [place] [address] Referring General Surgery 01/09/24 Tessa Spring MD [address] [place] [address] General Surgery 02/01/24 Amber Valverde LISW [address] [place] [address] Cracker Dough Mixer Hematology/Oncology 02/19/24 Jimmie Poole MD [address] [place] [address] Hematology/Oncology 02/21/24 Kate Castillo, REAL [address] [place] [address] Specialty Implementation Architect Hematology/Oncology 02/21/24 Tessa Spring MD [address] [place], [place] [id number] Referring General Surgery 09/04/24 Jimmie Poole MD [address], [place] [id number] [phone] Home Care Provider Hematology/Oncology 09/04/24 Team Status: Active Member Role/Relationship Status Dates Zebulun Beam VSC, TRAY FILLER-C Primary care physician Active Team Status: Inactive Member Role/Relationship Status Dates Zebulun Beam VSC, TRAY FILLER-C Primary care physician Active Start: September 04, [...] Member Role/Relationship Status Dates Zebulun Beam VSC, TRAY FILLER-C Primary care physician Active Start: September 13, 2024 End: September 13, 2024 Dr. Qamar Smith MD Attending physician Active Start: September 13, 2024 End: September 13, 2024 Dr. Qamar Smith MD Referring Provider Active Start: September 13, 2024 End: September 13, 2024 Team Status: Inactive Member Role/Relationship Status Dates Zebulun Beam VSC, TRAY FILLER-C Primary care physician Active Start: October 18, 2024 End: October 18, 2024 Zebulun Beam VSC, TRAY FILLER-C Attending physician Active Start: October 18, 2024 End: October 18, 2024 Zebulun Beam VSC, TRAY FILLER-C Referring Provider Active Start: October 18, 2024 End: October 18, 2024 Team Status: Inactive Member Role/Relationship Status Dates Zebulun Beam VSC, TRAY FILLER-C Primary care physician Active Start: October 23, 2024 End: October 23, 2024 Ankit Marsh MD Attending physician Active Sta rt: October 23, 2024 End: October 23, 2024 Ankit Marsh MD Emergency Department Physician Activ e Start: October 23, 2024 End: October 23, 2024 Team Status: Inactive Member Role/Relationship Status Dates Zebulun Beam VSC, TRAY FILLER-C Primary care physician Active Start: November 07, 2024 End: November 08, 2024 Dr. Lluvia Vann MD Emergency Departmen t Physician Active Start: November 07, 2024 [...] Member Role/Relationship Status Dates Zebulun Beam VSC, TRAY FILLER-C Primary care physician Active Start: November 08, 2024 Dr. [facility] Active Start: November 08, 2024 Dr. Annette Mendez MD Admitting physician Active Start: November 08, 2024 Dr. Annette Mnedez MD Nurse Practitioner Active Start: November 08, 2024 Dr. Saroj Puga DO Attending physician Active Start: November 08, 2024 Dr. Saroj Puga DO Nurse Practitioner Active Start: November 08, 2024 Team Status: Inactive Member Role/Relationship Status Dates Zebulun Beam VSC, TRAY FILLER-C Primary care physician Active Start: November 20, [...] Member Role/Relationship Status Dates Zebulun Beam VSC, TRAY FILLER-C Primary care physician Active Start: November 20, 2024 Dr. Kavin Admas DO Emergency Department Physician Active Start: November 20, 2024 Dr. Rachana Nichols MD Attending physician Active Start: November 20, 2024 Dr. Rachana Nichols MD Nurse Practitioner Active Start: November 20, 2024 Team Status: Inactive Member Role/Relationship Status Dates Zebulun Beam VSC, TRAY FILLER-C Primary care physician Active Start: November 25, 2024 End: November 25, 2024 Dr. eDmarcus Gauthier MD Attending physician Active Start: November 25, 2024 End: November 25, 2024 Dr. Dem[facility]us [facility]authier [facility] Active Start: November 25, 2024 End: November 25, 2024 Team Status: Inactive Member Role/Relationship Status Dates Aubrey Lopez VEENA, TRAY FILLER-C Primary care physician Active Start: December 17, [...] BE BASED ON THE PRIMARY CLINICAL RECORDS. [employer] provides no warranty or guarantee of the accuracy or completeness of information in this document.
[2025-02-16 14:33] LABS: AST(SGOT) 17 U/L (<=31); Alanine Aminotransfer ALT/SGPT 9 U/L (<=34); Albumin, Serum 3.0 g/dL (3.4-4.8); Alkaline Phosphatase 139 U/L (35-104); Anion Gap 9 (5-15); BUN 12 mg/dL (4-19); BUN/Creat Ratio 25.1 RATIO (10-20); Calcium,Total 8.4 mg/dL (7.6-11.0); Carbon Dioxide 25.1 mmol/L (21.0-32.0); Chloride 102 mmol/L (98-108); Estimated Creatinine Clearance 36.11 ml/min (50-250); Globulin 2.8 g/dL (2.2-4.2); Glucose 115 mg/dL (70-99); Potassium 3.8 mmol/L (3.3-5.1)
[2025-02-16 15:17] VITALS: BP 104/61; PULSE 63; RESP 15; O2SAT 95
[2025-02-16 15:47] VITALS: BP 104/61; PULSE 63; RESP 15; TEMP 36.6; O2SAT 95
== END 2025-02-16 15:48 | disposition home or self-care (01) ==
PROVIDERS: Emergency Provider Emergency Medicine; Visit Provider Emergency Medicine
DX: R53.1 Weakness (principal); C78.7 Secondary malignant neoplasm of liver and intrahepatic bile duct; C18.9 Malignant neoplasm of colon, unspecified; E43 Unspecified severe protein-calorie malnutrition; Z68.1 Body mass index [BMI] 19.9 or less, adult; F17.290 Nicotine dependence, other tobacco product, uncomplicated
CPT/HCPCS: 36591; 80053; 85025; 96361; 96374; 99282; A4216; J2405